=== PATIENT | female | born 1965 | race Two or more races ===

== ENCOUNTER → 2020-01-09 07:55 | Outpatient (REF) | payer MEDICAID, SELFPAY ==
--- NOTE | 2020-01-09 | NM_ITS ---
Myocardial perfusion study Indication: Chest pain to evaluate for myocardial ischemia Technique: The patient was brought in for a Lexiscan perfusion study on 01/09/2020. Patient performed low-level exercise and was injected 0.4 mg of Lexiscan intravenously. Within a minute of injection, 40 mCi of sestamibi was given intravenously. Images were obtained using the SPECT gamma camera interlaced with the gating device. Images were obtained in supine position. Resting perfusion study was performed on 01/10/2020. Patient was administered 40 mCi of sestamibi intravenously at rest. Images were then obtained in supine position. Images obtained with and without CT attenuation. Total DLP 133 MGY-CM. Images were processed with the software and compared side to side in short axis, horizontal long axis and vertical long axis views. Findings: The stress perfusion study showed non attenuated images show normal uptake of radiotracer in all segments of LV myocardium. Attenuated corrected images show mildly reduced uptake in the apex of the LV myocardium. The gated study shows normal LV systolic function with calculated LVEF of 55%. LV cavity is normal size. The gated study shows normal systolic wall thickening and contraction of segments. Resting study shows no change in perfusion pattern compared to stress perfusion study. Gating at rest reveals normal systolic wall motion with ejection fraction at 57%. The findings are consistent with normal myocardial perfusion. NM/NM john perf SPECT rest & str Impression: 1. Myocardial perfusion imaging study shows normal myocardial perfusion 2. Gated LVEF is 55% 3. Transient ischemic dilatation not present EKG is nondiagnostic for ischemia
--- NOTE | 2020-01-09 08:00 | CA_ITS ---
Acquisition Time: 2020-01-09 09:32:01 Total Exercise Time: 00:02:00 Test Indications: Chest Pain Medications: TOPAMAX DOXEPIN SERTRALINE ASA INSULIN LORATADINE SIMVASTATIN PANTOPRAZOLE Protocol: LEXISCAN Max HR: 101 BPM 60% of Pred: 166 BPM Max BP: 108/076 mmHG Max Work Load: 1.0 METS Pharmacological stress test using Lexiscan while sittiing and kicking her feet. Pt had chest thightness 7/10 after lexiscan that was reversed with Aminophyline 75 mg IV. EKG without any arrhythmias, non-diagnostic for ischemia. Nuclear images to follow. Normotensive response to test. Test reviewed with Dr. Burnett Referred By: Bright Jesus Overread By: Jonathan Rhaman
== END ==
LOC: HO.CARD 07:55
PROVIDERS: Visit Provider Internal Medicine Cardiovascular Disease
DX: R07.9 Chest pain, unspecified (principal)
CPT/HCPCS: 78452; 93017; A9500; J0280; J2785

== ENCOUNTER → 2020-02-13 11:20 | Outpatient (BNVA) | payer MEDICAID, SELFPAY | PROVIDERS: PCP Internal Medicine Geriatric Medicine; Visit Provider Internal Medicine | DX: E66.01 Morbid (severe) obesity due to excess calories (principal); G47.33 Obstructive sleep apnea (adult) (pediatric); G47.34 Idiopathic sleep related nonobstructive alveolar hypoventilation; J44.9 Chronic obstructive pulmonary disease, unspecified; J98.4 Other disorders of lung; F17.200 Nicotine dependence, unspecified, uncomplicated | CPT/HCPCS: 99212 ==

== ENCOUNTER → 2020-04-16 11:17 | Outpatient (BNVA) | payer MEDICAID, SELFPAY | PROVIDERS: PCP Internal Medicine Geriatric Medicine; Visit Provider Internal Medicine | DX: E66.01 Morbid (severe) obesity due to excess calories (principal); G47.33 Obstructive sleep apnea (adult) (pediatric); G47.34 Idiopathic sleep related nonobstructive alveolar hypoventilation; J44.9 Chronic obstructive pulmonary disease, unspecified; F17.200 Nicotine dependence, unspecified, uncomplicated; J98.4 Other disorders of lung; E66.9 Obesity, unspecified | CPT/HCPCS: 99212 ==

== ENCOUNTER 2020-05-19 09:38 | Outpatient (REF) | payer MEDICAID, SELFPAY ==
--- NOTE | ~2020-05-19 | XR_ITS ---
EXAMINATION: RIGHT WRIST X-RAY CLINICAL INFORMATION: Carpal tunnel syndrome COMPARISON: None TECHNIQUE: 4 views of the right wrist FINDINGS: Bone alignment is normal. No fracture or dislocation is seen. Joint spaces are normal. There is a small soft tissue calcification adjacent to the distal ulna. Soft tissues are otherwise unremarkable. XR/XR wrist RT w scaphoid IMPRESSION: Unremarkable exam.
== END 2020-05-19 09:39 | disposition home or self-care (01) ==
LOC: HO.XRAY 09:38
PROVIDERS: PCP Internal Medicine Geriatric Medicine; Visit Provider Registered Nurse
DX: G56.01 Carpal tunnel syndrome, right upper limb (principal); M25.531 Pain in right wrist
CPT/HCPCS: 73110

== ENCOUNTER 2020-05-28 10:43 | Outpatient (REF) | payer MEDICAID, SELFPAY ==
--- NOTE | ~2020-05-28 | XR_ITS ---
EXAMINATION: XR CERVICAL SPINE CLINICAL INFORMATION: Right arm pain COMPARISON: 08/13/2008 TECHNIQUE: 6 views of the cervical spine, inclusive of oblique views, were obtained. FINDINGS: The vertebral alignment is normal. No intrinsic bony abnormality. The disc heights are well maintained. Small multilevel endplate osteophytes. There appears to be bony neuroforaminal narrowing bilaterally at C5-C6, C6-C7, and C7-T1.. No fracture or subluxation. The surrounding prevertebral soft tissues are unremarkable. XR/XR cervical spine min 6V IMPRESSION: Mild degenerative changes. Bilateral neuroforaminal narrowing at the lower cervical spine.
--- NOTE | ~2020-05-28 | XR_ITS ---
EXAMINATION: XR SHOULDER, RIGHT CLINICAL INFORMATION: Pain. COMPARISON: None. TECHNIQUE: 3 views of the right shoulder. FINDINGS: Mild acromioclavicular arthritis. No fracture or dislocation. Glenohumeral joint space is maintained. No abnormal soft tissue calcification. XR/XR shoulder RT min 2V IMPRESSION: Mild acromioclavicular arthritis.
== END 2020-05-28 10:44 | disposition home or self-care (01) ==
LOC: HO.XRAY 10:43
PROVIDERS: PCP Internal Medicine Geriatric Medicine; Visit Provider Internal Medicine Geriatric Medicine
DX: M79.601 Pain in right arm (principal)
CPT/HCPCS: 72052; 73030

== ENCOUNTER 2020-07-02 06:00 | Outpatient (REF) | payer MEDICAID, SELFPAY ==
--- NOTE | ~2020-07-02 | CT_ITS ---
EXAMINATION: CT ABDOMEN AND PELVIS WITH CONTRAST CLINICAL INFORMATION: Left lower quadrant pain. COMPARISON: None TECHNIQUE: Multidetector volumetric images were obtained from the superior aspect of the liver through the pubic symphysis following administration 85 mL of Omnipaque 350 intravenous contrast. Sagittal and coronal reformatted images were obtained on the technologist's workstation. Oral Contrast: No. This CT examination was performed using dose optimization techniques as appropriate, variously including the following: *Automated exposure control. *Adjustment of mA and/or kV according to patient size (this includes techniques or standardized protocols for targeted exams where dose is matched to indication/reason for exam; i.e. extremities or head). *Use of iterative reconstruction technique. DLP: 765 mGy-cm FINDINGS: LUNG BASES: The visualized lung bases are unremarkable. LIVER, GALLBLADDER, AND BILIARY TREE: The liver is normal in size, shape, and attenuation. No focal hepatic lesion or biliary ductal dilatation is present. The gallbladder is unremarkable with no evidence of radiopaque gallstones, gallbladder wall thickening, or obvious pericholecystic inflammatory changes. PANCREAS: Unremarkable. SPLEEN: Unremarkable. ADRENAL GLANDS: Unremarkable. KIDNEYS AND URETERS: The kidneys are normal in size, shape, and attenuation. No hydronephrosis, hydroureter, or calculi seen. No perinephric stranding. There are bilateral extrarenal kidney pelvises. BLADDER: Unremarkable. GASTROINTESTINAL TRACT: There is moderate scattered stool and diverticuli seen throughout the colon without significant distention. There is no mural thickening or pericolic fat stranding to suspect any diverticulitis. Contrast-opacified small bowel loops are normal in caliber. There is no free air or free fluid. Appendix is not visualized. ABDOMINAL WALL: No significant hernia is appreciated. LYMPH NODES: There are small shotty lymph nodes in the retroperitoneum from previous intervention. VASCULAR: Unremarkable. PELVIC VISCERA: Unremarkable. OSSEOUS STRUCTURES: No lytic or sclerotic process seen. There is mild degenerative ventral spondylosis in the lower dorsal spine. There is vacuum disc phenomena at L4-L5 disc level. CT/CT abdomen pelvis w con IMPRESSION: 1. Scattered colonic diverticulosis without diverticulitis. 2. Bilateral extrarenal kidney pelvises but no radiopaque renal calculi seen. 3. Hysterectomy and bilateral oophorectomy.
[2020-07-02] MEDS: iohexoL 350 MG/ML 100 ML INFUS..BTL IV (08:17)
[2020-07-02] MEDS: Barium Sulfate Oral (Berry) 450 ML ORAL.SUSP 900 ML PO (08:18)
== END 2020-07-02 06:01 | disposition home or self-care (01) ==
LOC: HO.CT 06:00
PROVIDERS: PCP Internal Medicine Geriatric Medicine; Visit Provider Internal Medicine Geriatric Medicine
DX: R10.32 Left lower quadrant pain (principal)
CPT/HCPCS: 74177; Q9967

== ENCOUNTER 2020-07-24 10:08 | Outpatient (REF) | payer MEDICAID, SELFPAY ==
--- NOTE | ~2020-07-24 | XR_ITS ---
EXAMINATION: XR KNEE, RIGHT CLINICAL INFORMATION: Right knee pain. COMPARISON: 03/29/2019 right knee radiographs. TECHNIQUE: Four views of the right knee. FINDINGS: [id number] tricompartmental degenerative joint changes are seen most pronounced in the lateral femoral tibial compartment. There is no acute fracture, dislocation or joint effusion. The soft tissues are unremarkable without significant change. XR/XR knee RT 4V IMPRESSION: [id number] tricompartmental degenerative joint changes suggesting osteoarthritis without significant change. No acute abnormality.
== END 2020-07-24 10:09 | disposition home or self-care (01) ==
LOC: HO.XRAY 10:08
PROVIDERS: PCP Internal Medicine Geriatric Medicine; Referring Provider Internal Medicine Geriatric Medicine; Visit Provider Internal Medicine
DX: M25.561 Pain in right knee (principal)
CPT/HCPCS: 73564

== ENCOUNTER → 2020-09-15 09:45 | Outpatient (BNVA) | payer MEDICAID, SELFPAY | PROVIDERS: PCP Internal Medicine Geriatric Medicine; Visit Provider Internal Medicine Pulmonary Disease | DX: M54.9 Dorsalgia, unspecified (principal); R31.9 Hematuria, unspecified | CPT/HCPCS: 99212 ==

== ENCOUNTER 2020-09-24 13:24 | Outpatient (REF) | payer MEDICAID, SELFPAY ==
--- NOTE | ~2020-09-24 | CT_ITS ---
EXAMINATION: CT ABDOMEN AND PELVIS WITHOUT CONTRAST CLINICAL INFORMATION: Dorsal pain. COMPARISON: CT abdomen pelvis 07/02/2020. TECHNIQUE: Multidetector volumetric imaging was performed from the superior aspect of the liver through the pubic symphysis. Sagittal and coronal reformatted images were obtained on the technologist's workstation. This CT examination was performed using dose optimization techniques as appropriate, variously including the following: *Automated exposure control *Adjustment of mA and/or kV according to patient size (this includes techniques or standardized protocols for targeted exams where dose is matched to indication/reason for exam; i.e. extremities or head) *Use of iterative reconstruction technique DLP: 782 mGy-cm FINDINGS: LUNG BASES: The lung bases are clear. The heart size is normal. LIVER, GALLBLADDER, AND BILIARY TREE: The liver is normal in size, shape, and attenuation. No focal hepatic lesion or biliary ductal dilatation is present. The gallbladder is unremarkable with no evidence of radiopaque gallstones, gallbladder wall thickening, or obvious pericholecystic inflammatory changes. PANCREAS: Unremarkable. SPLEEN: Unremarkable. ADRENAL GLANDS: Unremarkable. KIDNEYS AND URETERS: The kidneys are normal in size, shape, and attenuation. No hydronephrosis, hydroureter, or calculi seen. No perinephric stranding. There are bilateral extrarenal kidney pelvises. BLADDER: Unremarkable. GASTROINTESTINAL TRACT: There is scattered stool and gas seen throughout the colon without any significant distention. The small bowel loops are normal caliber. Appendix is not seen. ABDOMINAL WALL: No significant hernia is appreciated. LYMPH NODES: Normal. VASCULAR: Unremarkable. PELVIC VISCERA: Unremarkable. OSSEOUS STRUCTURES: There is vacuum disc phenomena at L4-L5 disc level. No lytic or sclerotic process seen. There is mild ventral spondylosis lower dorsal and upper lumbar spine. CT/CT abdomen pelvis wo con IMPRESSION: Degenerative disc changes with vacuum disc phenomena L4-L5 disc level. No fracture or lytic process. There is mild to moderate ventral spondylosis and lower dorsal and upper lumbar spine. There is no acute intra-abdominal process.
== END 2020-09-24 13:25 | disposition home or self-care (01) ==
LOC: HO.CT 13:24
PROVIDERS: PCP Internal Medicine Geriatric Medicine; Visit Provider Internal Medicine Pulmonary Disease
DX: M54.9 Dorsalgia, unspecified (principal)
CPT/HCPCS: 74176

== ENCOUNTER 2020-10-03 10:38 | Outpatient (REF) | payer OTHER, MEDICAID, SELFPAY ==
--- NOTE | ~2020-10-03 | XR_ITS ---
EXAMINATION: XR CERVICAL SPINE CLINICAL INFORMATION: Strain of muscle, fascia, and tendon adnexal level. COMPARISON: Cervical spine radiographs dated 05/28/2020. TECHNIQUE: AP, lateral, open-mouth, and bilateral oblique views of the cervical spine. FINDINGS: Straightening of the normal cervical lordosis, which may be positional or related to muscular spasm. No acute fracture or subluxation. No loss of vertebral body height. Mild loss of intervertebral disc height with small endplate osteophytes at C6-C7 where there is mild bilateral neural foraminal stenosis. Findings are similar when compared to the prior radiographs. Normal atlantoaxial alignment. Unremarkable prevertebral soft tissues. XR/XR cervical spine 4V IMPRESSION: Straightening of the normal cervical lordosis, which may be positional or related to muscular spasm. Degenerative disc disease at C6-C7 with mild bilateral neural foraminal stenosis, similar when compared to the prior radiographs.
== END 2020-10-03 10:39 | disposition home or self-care (01) ==
LOC: HO.XRAY 10:38
PROVIDERS: Absent Provider Internal Medicine Geriatric Medicine; PCP Internal Medicine Geriatric Medicine; Visit Provider Family Medicine
DX: S16.1XXD Strain of muscle, fascia and tendon at neck level, subsequent encounter (principal); X58.XXXD Exposure to other specified factors, subsequent encounter
CPT/HCPCS: 72050

== ENCOUNTER 2020-10-07 14:11 | Outpatient (REF) | payer OTHER, MEDICAID, SELFPAY ==
--- NOTE | ~2020-10-07 | XR_ITS ---
EXAMINATION: XR RIBS, BILATERAL CLINICAL INFORMATION: Pleurodynia. COMPARISON: Most recent chest radiographs dated 03/21/2019 TECHNIQUE: PA view of the chest as well as 3 views of the right and left ribs. FINDINGS: Lungs are clear. No consolidation, pneumothorax, or pleural effusion. The cardiomediastinal silhouette and pulmonary vasculature are normal. Osseous structures are unremarkable. Ribs are intact. No fractures are identified. XR/XR ribs BI min 4V w CXR1V IMPRESSION: No displaced fracture.
== END 2020-10-07 14:12 | disposition home or self-care (01) ==
LOC: HO.XRAY 14:11
PROVIDERS: PCP Internal Medicine Geriatric Medicine; Visit Provider Emergency Medicine
DX: R07.81 Pleurodynia (principal)
CPT/HCPCS: 71111

== ENCOUNTER 2020-10-14 09:49 | Outpatient (REF) | payer MEDICAID, SELFPAY ==
--- NOTE | ~2020-10-14 | CT_ITS ---
EXAMINATION: CT ABDOMEN AND PELVIS WITHOUT CONTRAST CLINICAL INFORMATION: Low back pain, dysuria. COMPARISON: CT scan of the abdomen and pelvis dated 09/24/2020. TECHNIQUE: Multidetector volumetric imaging was performed from the superior aspect of the liver through the pubic symphysis. Sagittal and coronal reformatted images were obtained on the technologist's workstation. Lack of intravenous and oral contrast limits visceral evaluation. This CT examination was performed using dose optimization techniques as appropriate, variously including the following: *Automated exposure control *Adjustment of mA and/or kV according to patient size (this includes techniques or standardized protocols for targeted exams where dose is matched to indication/reason for exam; i.e. extremities or head) *Use of iterative reconstruction technique DLP: 831 mGy-cm FINDINGS: LUNG BASES: The visualized lung bases are unremarkable. LIVER, GALLBLADDER, AND BILIARY TREE: Unremarkable. PANCREAS: Unremarkable. SPLEEN: Unremarkable. ADRENAL GLANDS: Unremarkable. KIDNEYS AND URETERS: There is mild malrotation of the right kidney. Mild renal pelviectasis is seen bilaterally, left greater than right without obstructing abnormality. No nephrolithiasis or ureterectasis. BLADDER: Unremarkable. GASTROINTESTINAL TRACT: The stomach and small bowel are unremarkable. The appendix is not visualized. No evidence for acute appendicitis. The colon is unremarkable. ABDOMINAL WALL: No significant hernia is appreciated. LYMPH NODES: No lymphadenopathy. 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 PELVIC VISCERA: Status post hysterectomy. No adnexal abnormality. OSSEOUS STRUCTURES: Mild multilevel marginal osteophyte formation most pronounced in the inferior thoracic spine without acute abnormality or significant change. CT/CT abdomen pelvis wo con IMPRESSION: 1. No acute intra-abdominal/pelvic abnormality to explain the patient's pain. No significant interval change. 2. 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 No obstructing abnormality is seen. This could be secondary to mild bilateral ureteropelvic stenosis. No nephrolithiasis or ureterectasis. 3. 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
== END 2020-10-14 09:50 | disposition home or self-care (01) ==
LOC: HO.CT 09:49
PROVIDERS: Visit Provider Emergency Medicine
DX: M54.5 Low back pain (principal); R30.0 Dysuria
CPT/HCPCS: 74176

== ENCOUNTER → 2020-12-03 11:48 | Outpatient (BNVA) | payer MEDICAID, SELFPAY | PROVIDERS: PCP Internal Medicine Geriatric Medicine; Referring Provider Internal Medicine Geriatric Medicine; Visit Provider Physician Assistant Surgical ==

== ENCOUNTER → 2020-12-05 10:34 | Outpatient (BNVA) | payer MEDICAID, SELFPAY | PROVIDERS: PCP Internal Medicine Geriatric Medicine; Visit Provider Urology | DX: Q63.2 Ectopic kidney (principal) | CPT/HCPCS: 99202 ==

== ENCOUNTER 2020-12-29 11:41 | Outpatient (RCR) | payer MEDICAID, SELFPAY | END 2021-06-23 08:19 | disposition home or self-care (01) | LOC: HO.PT 11:41 | PROVIDERS: PCP Internal Medicine Geriatric Medicine; Visit Provider Internal Medicine | DX: M25.511 Pain in right shoulder (principal) ==

== ENCOUNTER 2020-12-29 14:42 | Outpatient (REF) | payer MEDICAID, SELFPAY ==
--- NOTE | ~2020-12-29 | XR_ITS ---
EXAMINATION: XR FOREARM, RIGHT AND RIGHT HAND CLINICAL INFORMATION: Pain previous right wrist x-ray April 2020 COMPARISON: None. TECHNIQUE: AP and lateral views of the right forearm and 4 views of the right wrist were obtained. FINDINGS: Right Wrist: Bone alignment is normal. No fracture or dislocation is seen. The joint spaces are normal. There is a small soft tissue ossification or calcification adjacent to the ulnar styloid. Soft tissues are otherwise unremarkable. Right Forearm: Bone alignment is normal. No fracture or dislocation is seen. The joint spaces are normal. Soft tissues are normal. XR/XR forearm RT 2V IMPRESSION: RIGHT WRIST: Small soft tissue calcification or ossification adjacent to the ulnar styloid. This may be related to old trauma. RIGHT FOREARM: Unremarkable exam.
--- NOTE | ~2020-12-29 | XR_ITS ---
EXAMINATION: XR FOREARM, RIGHT AND RIGHT HAND CLINICAL INFORMATION: Pain previous right wrist x-ray April 2020 COMPARISON: None. TECHNIQUE: AP and lateral views of the right forearm and 4 views of the right wrist were obtained. FINDINGS: Right Wrist: Bone alignment is normal. No fracture or dislocation is seen. The joint spaces are normal. There is a small soft tissue ossification or calcification adjacent to the ulnar styloid. Soft tissues are otherwise unremarkable. Right Forearm: Bone alignment is normal. No fracture or dislocation is seen. The joint spaces are normal. Soft tissues are normal. XR/XR hand wrist RT IMPRESSION: RIGHT WRIST: Small soft tissue calcification or ossification adjacent to the ulnar styloid. This may be related to old trauma. RIGHT FOREARM: Unremarkable exam.
== END 2020-12-29 14:43 | disposition home or self-care (01) ==
LOC: HO.XRAY 14:42
PROVIDERS: Absent Provider Internal Medicine Geriatric Medicine; PCP Internal Medicine Geriatric Medicine; Visit Provider Emergency Medicine
DX: M25.531 Pain in right wrist (principal); M79.641 Pain in right hand; M79.631 Pain in right forearm
CPT/HCPCS: 73090; 73110; 73130

== ENCOUNTER → 2020-12-31 15:46 | Outpatient (BNVA) | payer MEDICAID, SELFPAY | PROVIDERS: Referring Provider Internal Medicine Geriatric Medicine; Visit Provider Nurse Practitioner Family | DX: K21.9 Gastro-esophageal reflux disease without esophagitis (principal); K58.2 Mixed irritable bowel syndrome; K59.03 Drug induced constipation; R14.0 Abdominal distension (gaseous) | CPT/HCPCS: 99202 ==

== ENCOUNTER 2021-01-01 12:41 | Outpatient (REF) | payer MEDICAID, SELFPAY | END 2021-01-01 12:42 | disposition home or self-care (01) | LOC: HO.LAB 12:41 | PROVIDERS: PCP Internal Medicine Geriatric Medicine; Visit Provider Nurse Practitioner Family | DX: Z13.89 Encounter for screening for other disorder (principal) ==

== ENCOUNTER 2021-01-02 08:08 | Outpatient (REF) | payer MEDICAID, SELFPAY ==
[2021-01-02 10:15] LABS: Hematocrit 38.7 % (37.0-47.0); Hemoglobin 11.9 g/dl (12.0-16.0); Mean Corpuscular HGB Conc 30.7 g/dl (31.0-35.0); Mean Corpuscular Volume 87.8 fL (80.0-98.0); Mean Platelet Volume 12.9 fL (9.4-12.3); Platelet Count 169 X10*3/uL (160-400); Red Blood Count 4.41 X10*6/uL (4.20-5.50); Red Cell Distribution Width 14.1 % (11.0-16.0); White Blood Count 6.7 X10*3/uL (4.8-10.8)
[2021-01-02 10:25] LABS: Estimated Average Glucose 171 mg/dL; Hemoglobin A1c % 7.6 %
[2021-01-02 10:44] LABS: Alanine Aminotransferase 33 U/L (0-31); Albumin Level 3.8 g/dL (3.5-5.0); Alkaline Phosphatase 75 U/L (39-117); Anion Gap 9 (12-20); Aspartate Amino Transferase 18 U/L (5-31); Bilirubin Total 0.6 mg/dL (0.0-1.0); Blood Urea Nitrogen 13 mg/dL (9-16); Calcium 9.1 mg/dL (8.4-10.2); Carbon Dioxide 30 mmol/L (22-29); Chloride 104 mmol/L (96-108); Estimated Glomerular Filt Rate > 60; Glucose Random 110 mg/dL (60-115); Lipase 19 U/L (8-78); Potassium 4.3 mmol/L (3.3-5.1); Sodium 139 mmol/L (135-145)
[2021-01-02 10:54] LABS: TSH reflex Free T4 0.95 uIU/mL (0.32-4.0)
[2021-01-02 11:06] LABS: Folate 17.6 ng/mL (> or = 4.0); Vitamin B12 536 pg/mL (200-900)
[2021-01-09 15:31] LABS: Vitamin D 25-OH, D2 <4 ng/mL; Vitamin D 25-OH, D3 29 ng/mL; Vitamin D 25-OH, Total 29 ng/mL (30-100)
[2021-01-12 17:27] LABS: Transglutaminase Ab IgG <1.0 U/mL; Transglutaminase IgA <1.0 U/mL
== END 2021-01-02 08:09 | disposition home or self-care (01) ==
LOC: HO.LAB 08:08
PROVIDERS: Absent Provider Nurse Practitioner Family; PCP Internal Medicine Geriatric Medicine; Visit Provider Surgery
DX: Z12.11 Encounter for screening for malignant neoplasm of colon (principal); R10.11 Right upper quadrant pain; R19.7 Diarrhea, unspecified; E55.9 Vitamin D deficiency, unspecified; R14.0 Abdominal distension (gaseous); E11.9 Type 2 diabetes mellitus without complications; E66.01 Morbid (severe) obesity due to excess calories; G47.33 Obstructive sleep apnea (adult) (pediatric); J44.9 Chronic obstructive pulmonary disease, unspecified; E78.5 Hyperlipidemia, unspecified; K21.9 Gastro-esophageal reflux disease without esophagitis
CPT/HCPCS: 36415; 80053; 82306; 82607; 82746; 83036; 83516; 83690; 84443; 85027

== ENCOUNTER → 2021-01-06 08:56 | Outpatient (REF) | payer MEDICAID, SELFPAY ==
--- NOTE | 2021-01-06 09:07 | ECG_ITS ---
Test Reason : morbid obesity Blood Pressure : / mmHG Vent. Rate : 061 BPM Atrial Rate : 061 BPM P-R Int : 136 ms QRS Dur : 084 ms QT Int : 400 ms P-R-T Axes : -20 -07 -04 degrees QTc Int : 402 ms Normal sinus rhythm Minimal voltage criteria for LVH, may be normal variant ( R in aVL ) Borderline ECG When compared with ECG of 05-FEB-2018 14:04, No significant change was found Referred By: Uriel Jewell Electronically Signed By:CRYSTAL GODINEZ MD
[2021-01-06 09:29] LABS: MANUAL DIFF FLAG NO
[2021-01-06 10:47] LABS: Basophils Percent Auto 0.4 % (0-2); Eosinophils Percent Auto 0.7 % (0-4); Hematocrit 40.1 % (37.0-47.0); Hemoglobin 12.6 g/dl (12.0-16.0); Imm Gran Abs Auto 0.02 X10*3/uL (0.00-0.03); Imm Gran Pct Auto 0.4 % (0.0-0.4); Lymphocytes Absolute Auto 1.2 X10*3/uL (1.2-4.9); Lymphocytes Percent Auto 21.2 % (20-40); Mean Corpuscular HGB Conc 31.4 g/dl (31.0-35.0); Mean Corpuscular Hemoglobin 27.3 pg (27.0-33.0); Mean Corpuscular Volume 86.8 fL (80.0-98.0); Mean Platelet Volume 12.6 fL (9.4-12.3); Monocytes Absolute Auto 0.6 X10*3/uL (0.1-1.2); Monocytes Percent Auto 10.8 % (2-11); Neutrophils Absolute Auto 3.6 x10*3/uL (2.0-8.3); Neutrophils Percent Auto 66.5 % (45-73); Platelet Count 154 X10*3/uL (160-400); Red Blood Count 4.62 X10*6/uL (4.20-5.50); Red Cell Distribution Width 14.1 % (11.0-16.0); White Blood Count 5.5 X10*3/uL (4.8-10.8)
[2021-01-06 11:00] LABS: Estimated Average Glucose 166 mg/dL; Hemoglobin A1c % 7.4 %
[2021-01-06 11:21] LABS: Alanine Aminotransferase 30 U/L (0-31); Albumin Level 4.2 g/dL (3.5-5.0); Alkaline Phosphatase 73 U/L (39-117); Anion Gap 10 (12-20); Aspartate Amino Transferase 19 U/L (5-31); Bilirubin Total 0.9 mg/dL (0.0-1.0); Blood Urea Nitrogen 11 mg/dL (9-16); C Reactive Protein 0.26 mg/dL (< or = 0.50); Calcium 9.3 mg/dL (8.4-10.2); Carbon Dioxide 27 mmol/L (22-29); Chloride 105 mmol/L (96-108); Cholesterol 196 mg/dL; Estimated Glomerular Filt Rate > 60; Glucose Random 106 mg/dL (60-115); HDL Cholesterol 46 mg/dL; Iron 116 mcg/dL (30-160); LDL Cholesterol Calculated 129 mg/dl; Percent Iron Saturation 35 % (15-50); Sodium 138 mmol/L (135-145); Total Iron Binding Capacity 335 mcg/dL (228-428); Total Protein 6.8 g/dL (6.5-8.0); Triglycerides 109 mg/dL; Unsaturated Iron Binding 219 ug/dL
[2021-01-06 11:43] LABS: Ferritin 161 ng/mL (10-250); Insulin 18 uU/mL (2-29); Vitamin D 25-OH Total 22.3 ng/mL (>30)
[2021-01-06 12:17] LABS: Folate > 20.0 ng/mL (> or = 4.0); Vitamin B12 670 pg/mL (200-900)
[2021-01-08 02:57] LABS: Calcium (PTHI) 9.4 mg/dL (8.6-10.4); PTHI 35 pg/mL (14-64)
[2021-01-09 00:31] LABS: Zinc 86 mcg/dL (60-130)
[2021-01-10 11:11] LABS: Vitamin B1 12 nmol/L (8-30)
[2021-01-12 03:31] LABS: Vitamin A 42 mcg/dL (38-98)
== END ==
LOC: HO.CARD 08:56
PROVIDERS: Nurse Practitioner Family; PCP Internal Medicine Geriatric Medicine; Visit Provider Surgery
DX: E66.01 Morbid (severe) obesity due to excess calories (principal); E78.5 Hyperlipidemia, unspecified; G47.33 Obstructive sleep apnea (adult) (pediatric); J44.9 Chronic obstructive pulmonary disease, unspecified; K21.9 Gastro-esophageal reflux disease without esophagitis
CPT/HCPCS: 36415; 80053; 80061; 82306; 82607; 82728; 82746; 83036; 83525; 83540; 83970; 84425; 84590; 84630; 85025; 86140; 87338; 93005

== ENCOUNTER → 2021-01-30 09:16 | Outpatient (BNVA) | payer MEDICAID, SELFPAY | PROVIDERS: PCP Internal Medicine Geriatric Medicine; Referring Provider Internal Medicine Geriatric Medicine; Visit Provider Dietitian, Registered | DX: E66.01 Morbid (severe) obesity due to excess calories (principal); Z68.41 Body mass index [BMI] 40.0-44.9, adult | CPT/HCPCS: 97802 ==

== ENCOUNTER → 2021-02-06 08:22 | Outpatient (BNVA) | payer MEDICAID, SELFPAY | PROVIDERS: PCP Internal Medicine Geriatric Medicine; Visit Provider Surgery ==

== ENCOUNTER → 2021-02-09 08:10 | Outpatient (BNVA) | payer MEDICAID, SELFPAY | PROVIDERS: PCP Internal Medicine Geriatric Medicine; Visit Provider Surgery ==

== ENCOUNTER → 2021-02-11 08:42 | Outpatient (BNVA) | payer MEDICAID, SELFPAY | PROVIDERS: PCP Internal Medicine Geriatric Medicine; Referring Provider Internal Medicine Geriatric Medicine; Visit Provider Nurse Practitioner Family | DX: K58.1 Irritable bowel syndrome with constipation (principal); K21.9 Gastro-esophageal reflux disease without esophagitis; I25.10 Atherosclerotic heart disease of native coronary artery without angina pectoris | CPT/HCPCS: 99212 ==

== ENCOUNTER → 2021-02-19 09:36 | Outpatient (BNVA) | payer MEDICAID, SELFPAY | PROVIDERS: PCP Internal Medicine Geriatric Medicine; Referring Provider Internal Medicine Geriatric Medicine; Visit Provider Physician Assistant Surgical ==

== ENCOUNTER → 2021-02-24 12:07 | Outpatient (BNVA) | payer MEDICAID, SELFPAY | PROVIDERS: PCP Internal Medicine Geriatric Medicine; Referring Provider Internal Medicine Geriatric Medicine; Visit Provider Physician Assistant ==

== ENCOUNTER → 2021-02-26 09:47 | Outpatient (BNVA) | payer MEDICAID, SELFPAY | PROVIDERS: PCP Internal Medicine Geriatric Medicine; Referring Provider Surgery; Visit Provider Dietitian, Registered | DX: E66.01 Morbid (severe) obesity due to excess calories (principal) | CPT/HCPCS: 97803 ==

== ENCOUNTER 2021-03-02 09:19 | Outpatient (REF) | payer MEDICAID, SELFPAY ==
--- NOTE | ~2021-03-02 | FL_ITS ---
EXAMINATION: XR FLUOROSCOPY UPPER GI WITH AIR CLINICAL INFORMATION: Moderate/severe obesity due to excess calories. COMPARISON: None TECHNIQUE: Routine upper GI air-contrast study was performed. FINDINGS: Following oral administration of thick barium and effervescent granules there is normal propagation bolus from the oral cavity through the pharynx, esophagus into the stomach without any evidence of obstruction, narrowing or stricture. On placing patient supine and prone lying there is moderate gastroesophageal reflux without hiatal hernia. Otherwise rest of the course, caliber and peristalsis of the stomach, duodenal bulb and the sweep is normal. FLUOROSCOPY TIME: 1.5 minutes DOSE AREA PRODUCT: 31.6 uGy-m2 (microgray-meter squared) FL/FL upper GI w air IMPRESSION: Moderate gastroesophageal reflux without hiatal hernia.
--- NOTE | ~2021-03-02 | US_ITS ---
EXAMINATION: US COMPLETE ABDOMEN WITH LIVER ELASTOGRAPHY CLINICAL INFORMATION: Morbid severe obesity due to excess calories. COMPARISON: None. TECHNIQUE: Real-time imaging of the abdominal viscera. Noninvasive ultrasound liver fibrosis assessment is performed using Macie ElastPQ point quantification shear wave elastography (2D-SWE) with a C5-2 MHz transducer. Multiple elastography samples are obtained. FINDINGS: PANCREAS: Normal. The visualized pancreatic head and body are normal in appearance. The remainder of the pancreas is obscured from visualization by the overlying bowel gas. ABDOMINAL AORTA: The proximal, middle, and distal aortic segments are normal in caliber. INFERIOR VENA CAVA: Visualized portions are normal. LIVER: The liver demonstrates normal size, contour and increased echogenicity. No focal lesion or intrahepatic biliary duct dilatation. The right lobe measures 16.3 cm in length. The left lobe measures 9.8 cm in length. Portal flow is hepatopedal. Shear wave liver elastography median stiffness is 1.10 m/s (reference: normal median stiffness is 1.3 m/s or less). IQR/median stiffness to assess sampling precision is 0.14 (reference: good quality data set is IQR/median stiffness of 0.15 or less). GALLBLADDER: Normal. The gallbladder is physiologically distended without evidence of stones, sludge, polyps, wall thickening or pericholecystic fluid. COMMON BILE DUCT: Normal in caliber measuring 0.57 cm in diameter. RIGHT KIDNEY: Normal. No hydronephrosis. No renal calculi or focal parenchymal lesions. The kidney measures 13.9 cm in maximum dimension. LEFT KIDNEY: Mild fullness of proximal ureter. No renal calculi or focal parenchymal lesions. The kidney measures 14.4 cm in maximum dimension. SPLEEN: Normal. The spleen measures 13.0 cm in maximum dimension. FREE FLUID: None. US/US abdomen comp w elastography IMPRESSION: 1. Hepatic steatosis without focal lesion. 2. Nonspecific but mild fullness of the left proximal ureter. 3. Liver elastography: Median liver stiffness 1.10 m/s. Findings suggestive of high probably normal liver stiffness. REFERENCE: Society of Radiologists in Ultrasound Liver Stiffness Thresholds (2020): LIVER STIFFNESS THRESHOLDS: *Liver Stiffness equal or less than 1.3 m/s: High probability of being normal. *Liver Stiffness less than 1.7 m/s: In the absence of other known clinical signs, rules out compensated advanced chronic liver disease. *Liver Stiffness 1.7-2.1 m/s: Suggestive of compensated advanced chronic liver disease but need further test for confirmation. *Liver Stiffness over 2.1 m/s: Rules in compensated advanced chronic liver disease. *Liver Stiffness over 2.4 m/s: Suggestive of clinically significant portal hypertension. QUALITY OF DATA SET: *IQR/Median value equal or less than 0.15 implies a quality data set. *IQR/Median value over 0.15 implies a poor quality data set. SIGNIFICANT CHANGE FROM PRIOR EXAM: Significant change if liver stiffness measurement is 10% or greater from prior exam. OTHER CONSIDERATIONS: The stage of liver fibrosis may be overestimated in the setting of acute hepatitis, liver inflammation, elevated liver function tests, hepatic vascular congestion, obstructive cholestasis, non-fasting state, and infiltrative diseases such as amyloidosis and lymphoma. In some patients with NAFLD, the liver stiffness thresholds for compensated advanced chronic liver disease may be lower. In causes other than viral hepatitis and NAFLD, liver stiffness thresholds are not well established.
== END 2021-03-02 09:20 | disposition home or self-care (01) ==
LOC: HO.US 09:19
PROVIDERS: Visit Provider Surgery
DX: E66.01 Morbid (severe) obesity due to excess calories (principal); K21.9 Gastro-esophageal reflux disease without esophagitis; E78.5 Hyperlipidemia, unspecified; G47.33 Obstructive sleep apnea (adult) (pediatric); J44.9 Chronic obstructive pulmonary disease, unspecified
CPT/HCPCS: 74246; 76705; 76981

== ENCOUNTER → 2021-03-05 12:10 | Outpatient (BNVA) | payer MEDICAID, SELFPAY | PROVIDERS: PCP Internal Medicine Geriatric Medicine; Referring Provider Internal Medicine Geriatric Medicine; Visit Provider Physician Assistant Surgical ==

== ENCOUNTER 2021-03-10 10:22 | Outpatient (REF) | payer MEDICAID, SELFPAY ==
[2021-03-10 14:12] LABS: H Pylori Breath Test Negative (Negative)
== END 2021-03-10 10:23 | disposition home or self-care (01) ==
LOC: HO.LNP 10:22
PROVIDERS: Surgery; PCP Internal Medicine Geriatric Medicine; Referring Provider Internal Medicine Geriatric Medicine; Visit Provider Physician Assistant
DX: E66.01 Morbid (severe) obesity due to excess calories (principal); E11.9 Type 2 diabetes mellitus without complications; G47.33 Obstructive sleep apnea (adult) (pediatric); J44.9 Chronic obstructive pulmonary disease, unspecified; K21.9 Gastro-esophageal reflux disease without esophagitis; E78.5 Hyperlipidemia, unspecified; Z71.3 Dietary counseling and surveillance; Z79.4 Long term (current) use of insulin; Z11.0 Encounter for screening for intestinal infectious diseases
CPT/HCPCS: 83013; 97803; 99211

== ENCOUNTER → 2021-03-12 08:54 | Outpatient (BNVA) | payer MEDICAID, SELFPAY | PROVIDERS: PCP Internal Medicine Geriatric Medicine; Visit Provider Physician Assistant Surgical ==

== ENCOUNTER → 2021-03-16 11:14 | Outpatient (BNVA) | payer MEDICAID, SELFPAY | PROVIDERS: PCP Internal Medicine Geriatric Medicine; Referring Provider Internal Medicine Geriatric Medicine; Visit Provider Nurse Practitioner Family | DX: K21.9 Gastro-esophageal reflux disease without esophagitis (principal); K58.1 Irritable bowel syndrome with constipation; K59.04 Chronic idiopathic constipation | CPT/HCPCS: 99212 ==

== ENCOUNTER → 2021-03-19 13:02 | Outpatient (BNVA) | payer MEDICAID, SELFPAY | PROVIDERS: PCP Internal Medicine Geriatric Medicine; Referring Provider Internal Medicine Geriatric Medicine; Visit Provider Physician Assistant ==

== ENCOUNTER → 2021-03-26 09:14 | Outpatient (BNVA) | payer MEDICAID, SELFPAY | PROVIDERS: PCP Internal Medicine Geriatric Medicine; Referring Provider Internal Medicine Geriatric Medicine; Visit Provider Physician Assistant ==

== ENCOUNTER → 2021-04-02 10:10 | Outpatient (BNVA) | payer MEDICAID, SELFPAY | PROVIDERS: PCP Internal Medicine Geriatric Medicine; Referring Provider Surgery; Visit Provider Dietitian, Registered | DX: G47.34 Idiopathic sleep related nonobstructive alveolar hypoventilation (principal); G47.33 Obstructive sleep apnea (adult) (pediatric); J44.9 Chronic obstructive pulmonary disease, unspecified; J98.4 Other disorders of lung; J30.9 Allergic rhinitis, unspecified; E66.01 Morbid (severe) obesity due to excess calories; Z68.41 Body mass index [BMI] 40.0-44.9, adult | CPT/HCPCS: 97803; 99212 ==

== ENCOUNTER → 2021-04-09 08:45 | Outpatient (BNVA) | payer MEDICAID, SELFPAY | PROVIDERS: PCP Internal Medicine Geriatric Medicine; Referring Provider Internal Medicine Geriatric Medicine; Visit Provider Physician Assistant ==

== ENCOUNTER 2021-04-14 15:09 | Emergency (ER) | payer MEDICAID, SELFPAY ==
--- NOTE | ~2021-04-14 | XR_ITS ---
EXAMINATION: X-RAY CHEST X-RAY ABDOMEN CLINICAL INFORMATION: Epigastric pain. COMPARISON: Chest radiograph dated from 10/07/2020. TECHNIQUE: AP view of the chest. AP supine views of the abdomen. FINDINGS: Chest radiograph: Normal appearance of the cardiomediastinal silhouette. No focal airspace opacities, pleural effusions or pneumothorax. No acute osseous abnormalities. Abdominal radiograph: Nonobstructive bowel gas pattern. Mild volume of stool burden. Surgical clips overlying the pelvis. No acute osseous abnormalities. XR/XR chest 1V IMPRESSION: 1. No acute cardiopulmonary findings. 2. Nonobstructive bowel gas pattern. Mild volume of stool burden.
--- NOTE | ~2021-04-14 | XR_ITS ---
EXAMINATION: X-RAY CHEST X-RAY ABDOMEN CLINICAL INFORMATION: Epigastric pain. COMPARISON: Chest radiograph dated from 10/07/2020. TECHNIQUE: AP view of the chest. AP supine views of the abdomen. FINDINGS: Chest radiograph: Normal appearance of the cardiomediastinal silhouette. No focal airspace opacities, pleural effusions or pneumothorax. No acute osseous abnormalities. Abdominal radiograph: Nonobstructive bowel gas pattern. Mild volume of stool burden. Surgical clips overlying the pelvis. No acute osseous abnormalities. XR/XR KUB IMPRESSION: 1. No acute cardiopulmonary findings. 2. Nonobstructive bowel gas pattern. Mild volume of stool burden.
[2021-04-14 16:30] VITALS: BP 158/76; PULSE 77; PULSE 89; RESP 18; TEMP 36.8; O2SAT 97; O2SAT 99; BMI 39.3
--- NOTE | 2021-04-14 16:33 | ECG_ITS ---
Test Reason : nausea/vomiting Blood Pressure : / mmHG Vent. Rate : 070 BPM Atrial Rate : 070 BPM P-R Int : 164 ms QRS Dur : 088 ms QT Int : 400 ms P-R-T Axes : 019 -13 -21 degrees QTc Int : 432 ms Normal sinus rhythm Minimal voltage criteria for LVH, may be normal variant ( R in aVL ) Borderline ECG When compared with ECG of 06-JAN-2021 09:13, No significant change was found Referred By: Generic ED Physician Electronically Signed By:SIOMARA CARLTON
[2021-04-14 16:50] LABS: Hematocrit 39.3 % (37.0-47.0); Hemoglobin 12.5 g/dl (12.0-16.0); Mean Corpuscular HGB Conc 31.8 g/dl (31.0-35.0); Mean Corpuscular Hemoglobin 26.9 pg (27.0-33.0); Mean Corpuscular Volume 84.7 fL (80.0-98.0); Mean Platelet Volume 12.3 fL (9.4-12.3); Platelet Count 140 X10*3/uL (160-400); Red Blood Count 4.64 X10*6/uL (4.20-5.50); Red Cell Distribution Width 13.2 % (11.0-16.0); White Blood Count 5.9 X10*3/uL (4.8-10.8)
[2021-04-14 17:04] LABS: Anion Gap 11 (12-20); Blood Urea Nitrogen 13 mg/dL (9-16); Carbon Dioxide 27 mmol/L (22-29); Chloride 105 mmol/L (96-108); Creatinine Clr Calc Pharmacy 130.8; Estimated Glomerular Filt Rate > 60; Glucose Random 106 mg/dL (60-115); Lipase 12 U/L (8-78); Potassium 3.7 mmol/L (3.3-5.1); Sodium 139 mmol/L (135-145)
[2021-04-14 17:10] LABS: Troponin-I High Sensitivity < 3.5 ng/L (<3.5-17.0)
--- NOTE | 2021-04-14 17:10 | ED_ITS ---
HPI - Nausea/Vomiting/Diarrhea General Chief complaint: Abdominal Pain Stated complaint: nausea/vomiting Time Seen by Provider: 04/14/21 17:03 Source: patient Mode of arrival: EMS Limitations: no limitations History of Present Illness HPI Narrative: This is a 55-year-old female past medical history significant for chronic idiopathic constipation, IBS, bulimia, coronary artery disease, GERD, hyperlipidemia, diabetes type 2 insulin dependent, COPD, DRE, obesity presenting to the emergency department with epigastric pain, nausea and vomiting since this morning. Patient tells me she may have taken her medications twice by accident, she is unable to tell me which 1 she took twice. She tells me it was an accide nt and she was not intending to hurt herself. She tells me that this is not her typical bully marcel episode. She tells me that the epigastric pain is worse when she vomits. She has been vomiting watery fluid she tells me. Pain is located to the epigastric region, described as burning and severe. She tells me it will not go way and this has been happening since 11:00. She does tell me that the epigastric pain is better when she is not vomiting. No other medical complaints at this time. She tells me this is not her typical bulimia. Denies SI and HI. Patient eating and drinking MD elicited complaint: nausea and vomiting Pertinent past history: bulimia Onset (ago): hour(s) (6) Description of vomiting: watery Description of diarrhea: watery Associated nausea: Yes Associated abdominal pain: Yes Location of pain: epigastric Pain consistency: constant Severity: moderate Exacerbating factors: none Relieving factors: none Context: other (Accidently doubled her dose of her at home meds unsure which one ) Associated symptoms: nausea/vomiting Related Data Home Medications Medication Instructions Recorded Confirmed albuterol sulfate 90 mcg/actuation 2 puff INHALATION Q6H PRN 02/13/20 aerosol inhaler (ProAir HFA) baclofen 10 mg tablet 10 mg PO BID 02/13/20 01/02/21 calcium carbonate 600 mg-vitamin 1 tab PO DAILY 02/13/20 01/02/21 D3 10 mcg (400 unit) tablet doxepin 10 mg capsule 10 mg PO BEDTIME 02/13/20 01/02/21 fluticasone propionate 50 1 spray INTRANASAL DAILY 02/13/20 01/02/21 mcg/actuation nasal spray,suspension (Flonase Allergy Relief) gabapentin 600 mg tablet 600 mg PO TID 02/13/20 01/02/21 guaifenesin 600 mg tablet, 600 mg PO Q12H PRN 02/13/20 01/02/21 extended release 12 hr (Mucinex) ipratropium 0.5 mg-albuterol 3 mg 3 ml INHALATION QID PRN 02/13/20 01/02/21 (2.5 mg base)/3 mL nebulization soln isosorbide mononitrate 60 mg 60 mg PO DAILY 02/13/20 01/02/21 tablet,extended release 24 hr loratadine 10 mg capsule 10 mg PO DAILY 02/13/20 01/02/21 metoprolol succinate 25 mg 12.5 mg PO DAILY 02/13/20 01/02/21 tablet,extended release 24 hr montelukast 10 mg tablet 10 mg PO BEDTIME 02/13/20 01/02/21 (Singulair) prazosin 2 mg capsule 2 mg PO BEDTIME 02/13/20 01/02/21 sertraline 50 mg tablet 50 mg PO DAILY 02/13/20 01/02/21 simvastatin 20 mg tablet 20 mg PO BEDTIME 02/13/20 01/02/21 topiramate 25 mg tablet (Topamax) 25 mg PO DAILY 02/13/20 01/02/21 alcohol swabs (Alcohol Prep Pads) pad TOPICAL BID 12/05/20 01/02/21 buspirone 15 mg tablet 15 mg PO 12/05/20 01/02/21 dulaglutide 0.75 mg/0.5 mL mg SUBCUT QWEEK 12/05/20 01/02/21 subcutaneous pen injector (Trulicity) haloperidol 1 mg tablet 1 mg PO BEDTIME 12/05/20 01/02/21 insulin lispro 200 unit/mL (3 mL) unit SUBCUT 12/05/20 01/02/21 subcutaneous pen (Humalog KwikPen U-200 Insulin) ipratropium 20 mcg-albuterol 100 1 puff INHALATION QID PRN 12/05/20 01/02/21 mcg/actuation mist for inhalation (Combivent Respimat) oxcarbazepine 300 mg tablet 300 mg PO 12/05/20 01/02/21 oxycodone 10 mg tablet 10 mg PO Q12H PRN 12/05/20 01/02/21 paroxetine HCl 40 mg tablet 40 mg PO BEDTIME 12/05/20 01/02/21 pen needle, diabetic 32 gauge x #50 ea 12/05/20 01/02/21 (Pentips) Previous Rx's Medication Instructions Recorded bismuth subsalicylate 262 mg 2 tab PO QID 14 Days #112 tab 01/09/21 chewable tablet pantoprazole 40 mg tablet,delayed 40 mg PO BID #60 tab 02/11/21 release fluticasone propionate 115 2 puff PO BID #12 g 02/23/21 mcg-salmeterol 21 mcg/actuation HFA inhaler (Advair HFA) docusate sodium 100 mg capsule 100 mg PO BEDTIME #30 cap 03/16/21 famotidine 40 mg tablet 40 mg PO BEDTIME #30 tab 03/16/21 sennosides 8.6 mg tablet (Natural 17.2 mg PO BEDTIME #60 tab 03/16/21 Senna Laxative) ondansetron 4 mg disintegrating 4 mg PO ONCE PRN #10 tab 04/14/21 tablet Allergies Allergy/AdvReac Type Severity Reaction Status Date / Time penicillin G [Penicillin G] Allergy Mild SWELLING Verified 04/02/21 11:31 barium sulfate Allergy Unknown HIVES Verified 04/02/21 11:31 [ORAL CONTRAST] Review of Systems Review of Systems: Constitutional : No Weight loss, No Fever, No Chills, No Fatigue, No Malaise ENT/Mouth : No sore throat, No Rhinorrhea Eyes: No Eye Pain, No Swelling, No Redness Cardiovascular : No Chest Pain, No SOB, No Dyspnea on Exertion, No Orthopnea, No Edema, No Palpitations Respiratory : No Cough, No Sputum, No Wheezing Gastrointestinal : + Nausea, + Vomiting, No Diarrhea, No Constipation, No abdominal Pain, No Hematochezia, No Melena Genitourinary : No Dysuria, No Urinary Frequency, No Hematuria, Musculoskeletal : No joint pain, No Myalgias, No Joint Swelling Skin : No Skin Lesions, No rash Neuro : No Weakness, No Numbness, No Dizziness, No Headache Psych : No Anxiety/Panic, No Depression All other systems reviewed and are negative Yes all other systems are reviewed and are negative Gastrointestinal: Gastrointestinal: Reports nausea PMFSH Past Medical History Attestation statement: The following information was validated with the patient. Source: old records reviewed and nursing notes reviewed Medical History Allergic rhinitis Back pain Chronic idiopathic constipation COPD (chronic obstructive pulmonary disease) Depression GERD (gastroesophageal reflux disease) Hyperlipidemia IBS (irritable bowel syndrome) Morbid obesity Nocturnal hypoxemia DRE (obstructive sleep apnea) Restrictive lung disease secondary to obesity Smoker Surgical History History of appendectomy Hx of carpal tunnel repair Hx of section Family History Family History Mother Diabetes Heart muscle disorder caused by another medical condition Father Diabetes Epilepsy Sister No problems noted. Sister No problems noted. Sister No problems noted. Sister No problems noted. Sister No problems noted. Brother No problems noted. Brother No problems noted. Brother No problems noted. Brother No problems noted. Brother No problems noted. Brother No problems noted. Daughter No problems noted. Daughter No problems noted. Son No problems noted. Son No problems noted. Son No problems noted. Social History Social History Alcohol intake: current Alcohol intake frequency: holidays/special occasions only Patient Tobacco Use Status: Former Tobacco user Substance Use Type: Opiates Advance Directives: No Advance Directives Information Provided: No Patient : No Physical Exam Vital Signs: Vital Signs: Last Vital Signs Temp 97.8 F 04/14/21 18:42 Pulse 66 04/14/21 18:42 Resp 16 04/14/21 18:42 BP 102/57 L 04/14/21 18:42 Pulse Ox 98 04/14/21 18:42 BMI result Body Mass Index 39.3 VSS Appearance: Alert.? Oriented X3.? No acute distress.?+ crying telling me she is in alot of pain Head: Normocephalic, atraumatic, no step-offs or deformities Eyes: Pupils equal, round and reactive to light.? ENT: Pharynx normal.? Neck: Normal inspection.? Neck supple.? CVS: Normal heart rate and rhythm.? Pulses normal.? Respiratory: No respiratory distress.? Breath sounds normal.? Abdomen: Soft and nontender.?Negative rosving, murphys, mcburneys, psoas, obturator Normal bowel sounds. Skin: Skin warm and dry.? Normal skin color.? Normal skin turgor.? Extremities: No lower extremity edema.? No calf ttp. 5/5 strength to bilateral upper and lower extremities Back: No midline tenderness, no C-spine tenderness, full range of motion, no CVA tenderness bilaterally Neuro: Oriented X 3.? No motor deficit.? No sensory deficit. CN 2-12 intact Course Reevaluation(s) Reevaluation #1: CBC within normal limits appears to be at patient's baseline. Lipase within normal limits. No acute electrolyte abnormalities. Troponin negative. EKG nonischemic. AST ALT, acetone and bilirubin pending at this time. Patient will be given a GI cocktail Time: 17:16 Reevaluation #2: Acetone negative. Patient's sugars under control unlikely that this is DKA. Patient likely has gastritis. She should follow-up with GI. She should return with worsening symptoms. At this time I do not feel as though it is necessary to do imaging on this patient she has had multiple scans of her abdomen and pelvis within the past year, she has also had an upper GI series with air contrast and liver elastography she has a history of GERD with hiatal hernia. I do not suspect that this is an incarcerated hiatal hernia, patient appears comfortable and she describes the pain as burning. I will obtain imaging just to ensure that there is no new findings on imaging. Time: 18:56 Reevaluation #3: CXR wnl patient will be discharged with gi follow up. Upon rexamination no tenderness on exam. Comfortable with GREGOR ortega gastritis Time: 20:03 MDM - Nausea/Vomiting/Diarrhea MDM Narrative Medical decision making narrative: 1713 55 yo f pmhx constipation, IBS, bulimia, CAD, GERD, HLD, DM 2 insulin dependent, COPD, DRE, obesity presenting w/ nausea, vomiting and epigastric pain since this AM. Tells me this isnt related to her bulemia. Contributes it to taking a double dose of her prepack medications morning. Denies SI HI. Denies alcohol use. Physical examination benign. No pain with palpation of abdomen. Patient is tearful upon my exam and she does tell me that she is having a lot of pain however when I press on her abdomen she does not appear uncomfortable/and reports no pain. Low suspicion for appendicitis, cholecystitis, acute abdomen, SBO and encarcerated hernia. Patient comfortable. Plan at this time is to obtain basic labs. Medical Records Attestation: I reviewed the patient's medical records. Lab Data Attestation: I reviewed the patient's lab results. Result diagrams: 04/14/21 16:43 04/14/21 16:43 Labs: Lab Results 04/14/21 04/14/21 04/14/21 Range/Units 16:43 16:43 16:43 WBC 5.9 (4.8-10.8) X10*3/uL RBC 4.64 (4.20-5.50) X10*6/uL Hgb 12.5 (12.0-16.0) g/dl Hct 39.3 (37.0-47.0) % MCV 84.7 (80.0-98.0) fL MCH 26.9 L (27.0-33.0) pg MCHC 31.8 (31.0-35.0) g/dl RDW 13.2 (11.0-16.0) % Plt Count 140 L (160-400) X10*3/uL MPV 12.3 (9.4-12.3) fL Absolute Nucleated RBC 0.000 (0.0-0.012) X10*3/uL Nucleated RBC % (auto) 0.0 (0.0-0.2) /100WBC Sodium 139 (135-145) mmol/L Potassium 3.7 (3.3-5.1) mmol/L Chloride 105 (96-108) mmol/L Carbon Dioxide 27 (22-29) mmol/L Anion Gap 11 L (12-20) BUN 13 (9-16) mg/dL Creatinine 0.55 (0.5-1.4) mg/dL Estim Creat Clear Calc 130.8 Estimated GFR > 60 Random Glucose 106 (60-115) mg/dL Calcium 9.0 (8.4-10.2) mg/dL Total Bilirubin 0.5 (0.0-1.0) mg/dL AST 16 (5-31) U/L ALT 16 (0-31) U/L Troponin I High Sens < 3.5 (<3.5-17.0) ng/L Lipase 12 (8-78) U/L Acetone, Qual (Negative) 04/14/21 Range/Units 16:43 WBC (4.8-10.8) X10*3/uL RBC (4.20-5.50) X10*6/uL Hgb (12.0-16.0) g/dl Hct (37.0-47.0) % MCV (80.0-98.0) fL MCH (27.0-33.0) pg MCHC (31.0-35.0) g/dl RDW (11.0-16.0) % Plt Count (160-400) X10*3/uL MPV (9.4-12.3) fL Absolute Nucleated RBC (0.0-0.012) X10*3/uL Nucleated RBC % (auto) (0.0-0.2) /100WBC Sodium (135-145) mmol/L Potassium (3.3-5.1) mmol/L Chloride (96-108) mmol/L Carbon Dioxide (22-29) mmol/L Anion Gap (12-20) BUN (9-16) mg/dL Creatinine (0.5-1.4) mg/dL Estim Creat Clear Calc Estimated GFR Random Glucose (60-115) mg/dL Calcium (8.4-10.2) mg/dL Total Bilirubin (0.0-1.0) mg/dL AST (5-31) U/L ALT (0-31) U/L Troponin I High Sens (<3.5-17.0) ng/L Lipase (8-78) U/L Acetone, Qual Negative (Negative) ECG Data Attestation: I personally reviewed and interpreted this ECG as follows: ECG interpretation date: 04/14/21 ECG interpretation time: 17:17 Prior ECG tracings: available for review Interpretation: Ventricular rate of 70, IL normal, QRS normal, QT/QTC normal. EKG shows normal sinus rhythm, no ST elevations or inversions concerning for ischemia. When compared to EKG from December 2020 there is no significant changes. Critical Care Time Critical Care Time Critical Care Time: No Discharge Plan Discharge Clinical Impression: Nausea & vomiting, Gastritis Patient Disposition: Home, Self-Care Instructions: Acute Nausea and Vomiting (ED) Additional Instructions: Take your medications as prescribed. Follow-up with your primary care provider this week. Follow up with GI doctor this week. Return to the emergency department with new or worsening symptoms. Such as fevers, chills, chest pain, shortness breath, nausea, vomiting, abdominal pain, weakness, lethargy, vision changes, dizziness, headache. In case of emergency call 911 Prescriptions: New ondansetron 4 mg tablet,disintegrating 4 mg PO ONCE PRN (Reason: nausea and vomiting) Qty: 10 0RF No Action bismuth subsalicylate 262 mg tablet,chewable 2 tab PO QID 14 Days Qty: 112 0RF Advair HFA 115-21 mcg/actuation HFA aerosol inhaler 2 puff PO BID Qty: 12 3RF fluticasone propionate [Flonase Allergy Relief] 50 mcg/actuation spray,suspension 1 spray intranasal DAILY 0RF Rx Instructions: administer into each nostril montelukast [Singulair] 10 mg tablet 10 mg PO BEDTIME 0RF albuterol sulfate [ProAir HFA] 90 mcg/actuation HFA aerosol inhaler 2 puff inhalation Q6H PRN0RF ipratropium-albuterol 0.5 mg-3 mg(2.5 mg base)/3 mL solution for nebulization 3 ml inhalation QID PRN0RF sertraline 50 mg tablet 50 mg PO DAILY 0RF doxepin 10 mg capsule 10 mg PO BEDTIME 0RF prazosin 2 mg capsule 2 mg PO BEDTIME 0RF guaifenesin [Mucinex] 600 mg tablet extended release 12hr 600 mg PO Q12H PRN0RF calcium carbonate-vitamin D3 600 mg(1,500mg) -400 unit tablet 1 tab PO DAILY 0RF simvastatin 20 mg tablet 20 mg PO BEDTIME 0RF gabapentin 600 mg tablet 600 mg PO TID 0RF metoprolol succinate 25 mg tablet extended release 24 hr 12.5 mg PO DAILY 0RF baclofen 10 mg tablet 10 mg PO BID 0RF isosorbide mononitrate 60 mg tablet extended release 24 hr 60 mg PO DAILY 0RF topiramate [Topamax] 25 mg tablet 25 mg PO DAILY 0RF loratadine 10 mg capsule 10 mg PO DAILY 0RF Combivent Respimat 20-100 mcg/actuation mist 1 puff inhalation QID PRN0RF oxycodone 10 mg tablet 10 mg PO Q12H PRN0RF Humalog KwikPen Insulin 200 unit/mL (3 mL) insulin pen subcut 0RF (DME) pen needle, diabetic [Pentips] 32 gauge x 5/32 needle See Rx Instructions ea .ROUTE DAILY Qty: 50 0RF Rx Instructions: As directed Trulicity 0.75 mg/0.5 mL pen injector subcut QWEEK 0RF buspirone 15 mg tablet 15 mg PO 0RF paroxetine HCl 40 mg tablet 40 mg PO BEDTIME 0RF alcohol swabs [Alcohol Prep Pads] Pads, Medicated topical BID 0RF oxcarbazepine 300 mg tablet 300 mg PO 0RF haloperidol 1 mg tablet 1 mg PO BEDTIME 0RF pantoprazole 40 mg tablet,delayed release (DR/EC) 40 mg PO BID Qty: 60 4RF docusate sodium 100 mg capsule 100 mg PO BEDTIME Qty: 30 3RF sennosides [Natural Senna Laxative] 8.6 mg tablet 17.2 mg PO BEDTIME Qty: 60 2RF famotidine 40 mg tablet 40 mg PO BEDTIME Qty: 30 3RF Referrals: Renny Frazier [Physician] - 2 days Name,MD Kiel [Primary Care Provider] - 2 days Stand Alone Forms: Work/School Release
[2021-04-14 17:31] LABS: Alanine Aminotransferase 16 U/L (0-31); Aspartate Amino Transferase 16 U/L (5-31); Bilirubin Total 0.5 mg/dL (0.0-1.0)
[2021-04-14] MEDS: Lidocaine HCl Viscous 2 % 15 ML SOLUTION MUCOUS MEM (17:33)
[2021-04-14] MEDS: Famotidine 20 MG TABLET PO (17:33)
[2021-04-14] MEDS: Magnesium Hydrox/Alum Hydrox 30 ML ORAL.SUSP PO (17:33)
[2021-04-14 18:17] LABS: Acetone, serum QL Negative (Negative)
--- NOTE | 2021-04-14 18:30 | PC.NURSE ---
patient reports pain is unimproved at this time. patient resting quietly before RN entered room.
[2021-04-14 18:42] VITALS: BP 102/57; PULSE 66; RESP 16; TEMP 36.6; O2SAT 98
[2021-04-14 20:20] VITALS: BP 118/53; PULSE 78; RESP 16; TEMP 36.9; O2SAT 97
== END 2021-04-14 20:22 | disposition home or self-care (01) ==
PROVIDERS: Physician Assistant; Emergency Provider Emergency Medicine Emergency Medical Services; PCP Internal Medicine Geriatric Medicine
DX: K29.70 Gastritis, unspecified, without bleeding (principal); R11.2 Nausea with vomiting, unspecified; E78.5 Hyperlipidemia, unspecified; E11.9 Type 2 diabetes mellitus without complications; F17.200 Nicotine dependence, unspecified, uncomplicated; Z79.4 Long term (current) use of insulin
CPT/HCPCS: 36415; 71045; 74018; 80048; 82009; 82247; 83690; 84450; 84460; 84484; 85027; 93005; 99284

== ENCOUNTER → 2021-04-20 08:45 | Outpatient (BNVA) | payer MEDICAID, SELFPAY | PROVIDERS: PCP Internal Medicine Geriatric Medicine; Referring Provider Internal Medicine Geriatric Medicine; Visit Provider Physician Assistant Surgical | DX: Z12.11 Encounter for screening for malignant neoplasm of colon (principal); K59.04 Chronic idiopathic constipation; K58.1 Irritable bowel syndrome with constipation; K21.9 Gastro-esophageal reflux disease without esophagitis | CPT/HCPCS: 99212 ==

== ENCOUNTER → 2021-04-23 10:45 | Outpatient (BNVA) | payer MEDICAID, SELFPAY | PROVIDERS: PCP Internal Medicine Geriatric Medicine; Referring Provider Internal Medicine Geriatric Medicine; Visit Provider Physician Assistant ==

== ENCOUNTER → 2021-04-29 08:50 | Outpatient (BNVA) | payer MEDICAID, SELFPAY | PROVIDERS: PCP Internal Medicine Geriatric Medicine; Visit Provider Dietitian, Registered | DX: E66.9 Obesity, unspecified (principal); Z68.39 Body mass index [BMI] 39.0-39.9, adult; Z71.3 Dietary counseling and surveillance | CPT/HCPCS: 97803 ==

== ENCOUNTER → 2021-04-30 09:54 | Outpatient (BNVA) | payer MEDICAID, SELFPAY | PROVIDERS: PCP Internal Medicine Geriatric Medicine; Referring Provider Internal Medicine Geriatric Medicine; Visit Provider Physician Assistant Surgical ==

== ENCOUNTER → 2021-05-07 08:41 | Outpatient (BNVA) | payer MEDICAID, SELFPAY | PROVIDERS: PCP Internal Medicine Geriatric Medicine; Referring Provider Internal Medicine Geriatric Medicine; Visit Provider Physician Assistant | DX: Z13.89 Encounter for screening for other disorder (principal) ==

== ENCOUNTER 2021-05-11 10:45 | Day surgery (SDC) | payer MEDICAID, SELFPAY ==
[2021-05-07 10:46] VITALS: BMI 40.9
--- NOTE | 2021-05-07 14:34 | HO.ANESPROP2 ---
Documented by User: Charisma Bennett NP 05/07/21 14:43 HPI - Anesthesia Eval Consult details Narrative: 55yo F for Upper Endoscopy and Colonoscopy O2 dependant @ 2 L PMFSH Active Problems Active Problems: All Active Problems (Updated 05/07/21 @ 10:46 by Ignacia Meyer, MARINA) Tenderness of back (Acute) Tenderness (Acute) Kidney, malrotation (Acute) Insulin dependent type 2 diabetes mellitus (Acute) Coronary artery disease (Acute) Bulimia nervosa in partial remission (Acute) Allergic rhinitis (Acute) Chronic idiopathic constipation (Acute) IBS (irritable bowel syndrome) (Acute) Back pain (Acute) GERD (gastroesophageal reflux disease) (Acute) Hyperlipidemia (Acute) Depression (Acute) Restrictive lung disease secondary to obesity (Acute) Smoker (Acute) COPD (chronic obstructive pulmonary disease) (Acute) Nocturnal hypoxemia (Acute) DRE (obstructive sleep apnea) (Acute) Morbid obesity (Acute) Past Medical History Medical History Allergic rhinitis Back pain Chronic idiopathic constipation COPD (chronic obstructive pulmonary disease) Depression GERD (gastroesophageal reflux disease) Hyperlipidemia IBS (irritable bowel syndrome) Morbid obesity Nocturnal hypoxemia DRE (obstructive sleep apnea) Oxygen dependent Restrictive lung disease secondary to obesity Smoker Family History Family History Mother Diabetes Heart muscle disorder caused by another medical condition Father Diabetes Epilepsy Sister No problems noted. Sister No problems noted. Sister No problems noted. Sister No problems noted. Sister No problems noted. Brother No problems noted. Brother No problems noted. Brother No problems noted. Brother No problems noted. Brother No problems noted. Brother No problems noted. Daughter No problems noted. Daughter No problems noted. Son No problems noted. Son No problems noted. Son No problems noted. Surgical History Surgical History History of appendectomy Hx of carpal tunnel repair Hx of section Social History Social History Alcohol intake: current Alcohol intake frequency: holidays/special occasions only Patient Tobacco Use Status: Former Tobacco user Use of substances other than those prescribed or required for medical reasons: No Substance Use Type: Opiates Are you DNR?: No Advance Directives: No Advance Directives Information Provided: Yes Meds Allergies Allergy/AdvReac Type Severity Reaction Status Date / Time penicillin G [Penicillin G] Allergy Mild SWELLING Verified 04/20/21 09:13 barium sulfate Allergy Unknown HIVES Verified 04/20/21 09:13 [ORAL CONTRAST] Home Medications Medication Instructions Recorded Confirmed Last Taken Type albuterol sulfate 90 mcg/actuation 2 puff INHALATION Q6H PRN 02/13/20 Unknown History aerosol inhaler (ProAir HFA) baclofen 10 mg tablet 10 mg PO BID 02/13/20 01/02/21 Unknown History calcium carbonate 600 mg-vitamin 1 tab PO DAILY 02/13/20 01/02/21 Unknown History D3 10 mcg (400 unit) tablet doxepin 10 mg capsule 10 mg PO BEDTIME 02/13/20 01/02/21 Unknown History fluticasone propionate 50 1 spray INTRANASAL DAILY 02/13/20 01/02/21 Unknown History mcg/actuation nasal spray,suspension (Flonase Allergy Relief) gabapentin 600 mg tablet 600 mg PO TID 02/13/20 01/02/21 Unknown History guaifenesin 600 mg tablet, 600 mg PO Q12H PRN 02/13/20 01/02/21 Unknown History extended release 12 hr (Mucinex) ipratropium 0.5 mg-albuterol 3 mg 3 ml INHALATION QID PRN 02/13/20 01/02/21 Unknown History (2.5 mg base)/3 mL nebulization soln isosorbide mononitrate 60 mg 60 mg PO DAILY 02/13/20 01/02/21 Unknown History tablet,extended release 24 hr loratadine 10 mg capsule 10 mg PO DAILY 02/13/20 01/02/21 Unknown History metoprolol succinate 25 mg 12.5 mg PO DAILY 02/13/20 01/02/21 Unknown History tablet,extended release 24 hr montelukast 10 mg tablet 10 mg PO BEDTIME 02/13/20 01/02/21 Unknown History (Singulair) prazosin 2 mg capsule 2 mg PO BEDTIME 02/13/20 01/02/21 Unknown History sertraline 50 mg tablet 50 mg PO DAILY 02/13/20 01/02/21 Unknown History simvastatin 20 mg tablet 20 mg PO BEDTIME 02/13/20 01/02/21 Unknown History topiramate 25 mg tablet (Topamax) 25 mg PO DAILY 02/13/20 01/02/21 Unknown History alcohol swabs (Alcohol Prep Pads) pad TOPICAL BID 12/05/20 01/02/21 Unknown History buspirone 15 mg tablet 15 mg PO 12/05/20 01/02/21 Unknown History dulaglutide 0.75 mg/0.5 mL mg SUBCUT QWEEK 12/05/20 01/02/21 Unknown History subcutaneous pen injector (Trulicity) haloperidol 1 mg tablet 1 mg PO BEDTIME 12/05/20 01/02/21 Unknown History insulin lispro 200 unit/mL (3 mL) unit SUBCUT 12/05/20 01/02/21 Unknown History subcutaneous pen (Humalog KwikPen U-200 Insulin) ipratropium 20 mcg-albuterol 100 1 puff INHALATION QID PRN 12/05/20 01/02/21 Unknown History mcg/actuation mist for inhalation (Combivent Respimat) oxcarbazepine 300 mg tablet 300 mg PO 12/05/20 01/02/21 Unknown History oxycodone 10 mg tablet 10 mg PO Q12H PRN 12/05/20 01/02/21 Unknown History paroxetine HCl 40 mg tablet 40 mg PO BEDTIME 12/05/20 01/02/21 Unknown History pen needle, diabetic 32 gauge x #50 ea 12/05/20 01/02/21 Unknown History (Pentips) Exam Exam Date and Time: May 07, 2021 1434 Height,Weight and Vital Signs: Height 5 ft 3 in Weight 104.78 kg Pertinent Lab Results Pertinent Lab Results: Laboratory Tests 04/14/21 04/14/21 16:43 16:43 WBC 5.9 Hgb 12.5 Hct 39.3 Plt Count 140 L Sodium 139 Potassium 3.7 Chloride 105 Carbon Dioxide 27 BUN 13 Creatinine 0.55 Assessment and Plan Assessment Anesthesia Assessment: Chart Reviewed Documented by User: Maryann Sewell MD 05/11/21 12:11 PMFSH Past Medical History Medical History Allergic rhinitis Back pain Chronic idiopathic constipation COPD (chronic obstructive pulmonary disease) Depression GERD (gastroesophageal reflux disease) Hyperlipidemia IBS (irritable bowel syndrome) Morbid obesity Nocturnal hypoxemia DRE (obstructive sleep apnea) Oxygen dependent Restrictive lung disease secondary to obesity Smoker Family History Family History Mother Diabetes Heart muscle disorder caused by another medical condition Father Diabetes Epilepsy Sister No problems noted. Sister No problems noted. Sister No problems noted. Sister No problems noted. Sister No problems noted. Brother No problems noted. Brother No problems noted. Brother No problems noted. Brother No problems noted. Brother No problems noted. Brother No problems noted. Daughter No problems noted. Daughter No problems noted. Son No problems noted. Son No problems noted. Son No problems noted. Family history of problems with anesthesia: No Surgical History Surgical History History of appendectomy Hx of carpal tunnel repair Hx of section History of Problems with Anesthesia: No Social History Social History Alcohol intake: current Alcohol intake frequency: holidays/special occasions only Patient Tobacco Use Status: Former Tobacco user Use of substances other than those prescribed or required for medical reasons: No Substance Use Type: Opiates Are you DNR?: No Advance Directives: No Advance Directives Information Provided: Yes Meds Allergies Allergy/AdvReac Type Severity Reaction Status Date / Time penicillin G [Penicillin G] Allergy Mild SWELLING Verified 04/20/21 09:13 barium sulfate Allergy Unknown HIVES Verified 04/20/21 09:13 [ORAL CONTRAST] Home Medications Medication Instructions Recorded Confirmed Last Taken Type albuterol sulfate 90 mcg/actuation 2 puff INHALATION Q6H PRN 02/13/20 Unknown History aerosol inhaler (ProAir HFA) baclofen 10 mg tablet 10 mg PO BID 02/13/20 01/02/21 Unknown History calcium carbonate 600 mg-vitamin 1 tab PO DAILY 02/13/20 01/02/21 Unknown History D3 10 mcg (400 unit) tablet doxepin 10 mg capsule 10 mg PO BEDTIME 02/13/20 01/02/21 Unknown History fluticasone propionate 50 1 spray INTRANASAL DAILY 02/13/20 01/02/21 Unknown History mcg/actuation nasal spray,suspension (Flonase Allergy Relief) gabapentin 600 mg tablet 600 mg PO TID 02/13/20 01/02/21 Unknown History guaifenesin 600 mg tablet, 600 mg PO Q12H PRN 02/13/20 01/02/21 Unknown History extended release 12 hr (Mucinex) ipratropium 0.5 mg-albuterol 3 mg 3 ml INHALATION QID PRN 02/13/20 01/02/21 Unknown History (2.5 mg base)/3 mL nebulization soln isosorbide mononitrate 60 mg 60 mg PO DAILY 02/13/20 01/02/21 Unknown History tablet,extended release 24 hr loratadine 10 mg capsule 10 mg PO DAILY 02/13/20 01/02/21 Unknown History metoprolol succinate 25 mg 12.5 mg PO DAILY 02/13/20 01/02/21 Unknown History tablet,extended release 24 hr montelukast 10 mg tablet 10 mg PO BEDTIME 02/13/20 01/02/21 Unknown History (Singulair) prazosin 2 mg capsule 2 mg PO BEDTIME 02/13/20 01/02/21 Unknown History sertraline 50 mg tablet 50 mg PO DAILY 02/13/20 01/02/21 Unknown History simvastatin 20 mg tablet 20 mg PO BEDTIME 02/13/20 01/02/21 Unknown History topiramate 25 mg tablet (Topamax) 25 mg PO DAILY 02/13/20 01/02/21 Unknown History alcohol swabs (Alcohol Prep Pads) pad TOPICAL BID 12/05/20 01/02/21 Unknown History buspirone 15 mg tablet 15 mg PO 12/05/20 01/02/21 Unknown History dulaglutide 0.75 mg/0.5 mL mg SUBCUT QWEEK 12/05/20 01/02/21 Unknown History subcutaneous pen injector (Trulicity) haloperidol 1 mg tablet 1 mg PO BEDTIME 12/05/20 01/02/21 Unknown History insulin lispro 200 unit/mL (3 mL) unit SUBCUT 12/05/20 01/02/21 Unknown History subcutaneous pen (Humalog KwikPen U-200 Insulin) ipratropium 20 mcg-albuterol 100 1 puff INHALATION QID PRN 12/05/20 01/02/21 Unknown History mcg/actuation mist for inhalation (Combivent Respimat) oxcarbazepine 300 mg tablet 300 mg PO 12/05/20 01/02/21 Unknown History oxycodone 10 mg tablet 10 mg PO Q12H PRN 12/05/20 01/02/21 Unknown History paroxetine HCl 40 mg tablet 40 mg PO BEDTIME 12/05/20 01/02/21 Unknown History pen needle, diabetic 32 gauge x #50 ea 12/05/20 01/02/21 Unknown History (Pentips) Exam Airway Mallampati Class: II (Edentulous on bottom, missing a couple on top) TM Dist: >3cm Neck ROM: Full Heart: rrr Lungs: cta Assessment and Plan Assessment Anesthesia Assessment: Anesthesia Plan Discussed and Chart Reviewed Final Anesthetic Review Family History of Problems with Anesthesia: No History of Problems with Anesthesia: No NPO: Yes ASA Class: III Final Preanesthetic Review: No Changes in Pt Med Stat and Meds/Allgs Chart Reviewed Patient Risk: Intermediate Procedure Risk: Intermediate Anesthetic Plan Anesthetic Plan: MAC: Disposition: Standard PACU
[2021-05-11 11:49] VITALS: BP 113/86; PULSE 71; RESP 18; TEMP 36.3; O2SAT 97
[2021-05-11 11:57] LABS: Glucose, Whole Blood 82 mg/dL (60-115)
[2021-05-11] MEDS: Lactated Ringers 1,000 ML 100 ML IVCONT (12:01)
--- NOTE | 2021-05-11 12:27 | MHC.SHP ---
Pre-Procedural Eval Section A Date of Service: 05/11/21 The patient is an INPATIENT: No Changes since office visit: Yes Patient answered all questions; No Cold of Flu in the past 2 weeks, No New Medical Problems and No Changes in Medication The History & Physical has been completed within 30 days and I have reviewed it.: Yes Section B Chief Complaint: Constipation, Gerd Allergies: Allergies Allergy/AdvReac Type Severity Reaction Status Date / Time penicillin G [Penicillin G] Allergy Mild SWELLING Verified 04/20/21 09:13 barium sulfate Allergy Unknown HIVES Verified 04/20/21 09:13 [ORAL CONTRAST] Plan I have reviewed the history and physical and performed a pertinent physical examination on my patient. No changes have occurred unless specified.
--- NOTE | 2021-05-11 12:28 | PM.OP ---
Brief Operative Note Date of Service: 05/11/21 Pre-op diagnosis: Colon cancer screening, GERD, dyspepsia, abdominal pain, history of Helicobacter pylori infection Post-op diagnosis: other (GERD, gastritis, colon polyps, diverticulosis) Procedure: FLEXIBLE TRANSORAL UPPER GASTROINTESTINAL ENDOSCOPY WITH BIOPSIES AND COLONOSCOPY TILL CECUM WITH UPPER ENDOSCOPY Consent: Indications for the procedure and potential complications of bleeding, perforation, reaction to medications and missed diagnosis were discussed with the patient and informed consent was obtained. Instrument: Olympus GIF H 190 mid size upper endoscope Monitoring: Vital signs and clinical assessment, continuous EKG monitoring, Pulse oximetry, Carbon Dioxide monitoring and blood pressure monitoring were done throughout the procedure. Procedure: The patient was placed in the left lateral decubitis position and pre-procedure medications were administered and a bite block was placed. The endoscope was inserted into the mouth and advanced under direct vision to the third part of duodenum. A careful inspection was made as the upper endoscope was withdrawn including a retroflexed examination of the proximal stomach; Findings and interventions are described below. Findings: Larynx: Normal Esophagus: GE junction at 36 cms. No esophagitis or Franklin's. Stomach: Moderate diffuse gastric erythema. Biopsies were obtained from the antrum and body of the stomach. Grade 2 flap valve on retroflexed examination of the cardia. Duodenum: Normal bulb and descending duodenum. Biopsies obtained from 3rd part of duodenum to check for celiac sprue Intervention: Biopsies as noted above COLONOSCOPY PROCEDURE NOTE Consent: Indications for the procedure and potential complications of bleeding, perforation, reaction to medications and missed diagnosis were discussed with the patient and informed consent was obtained. Instrument: Olympus PCF H 190 L variable stiffness pediatric colonoscope Monitoring: Vital signs and clinical assessment, intermittent blood pressure monitoring, continuous EKG monitoring, Pulse oximetry and Carbon Dioxide monitoring were done throughout the procedure. Colon withdrawl time was 21 minutes. Procedure: The patient was placed in the left lateral decubitis position and pre-procedure medications were administered. After a digital rectal examination of the ano-rectum, the video colonoscope was inserted into the rectum and advanced through the colon to the cecum. The colonoscope was slowly withdrawn in a retrograde panoramic fashion and the colon mucosa was carefully examined including a retroflexed view of the rectum. Findings and interventions are described below. Procedure Difficulty: : Without difficulty Findings: Terminal Ileum: Not evaluated Cecum: A 3-4 mm sessile polyp in the middle of the ICV removed with a cold bx. Ascending Colon: Normal Transverse Colon: A 12-15 mm sessile polyp removed with a hot snare Descending Colon: Normal Sigmoid Colon: A 4-5 mm sessile polyp removed with a cold bx. Moderate diverticulosis Rectum: Normal Ano-rectum: Normal Colon preparation: Good after some irrigation Impression and Post Procedure Diagnosis: Endoscopy Findings: STOMACH: Moderate diffuse gastric erythema. Biopsies were obtained from the antrum and body of the stomach. DUODENUM: Normal - biopsied to check for celiac sprue Colonoscopy Findings: Three small to medium sized polyps removed Moderate diverticulosis seen in the sigmoid colon Plan: Await pathology results Patient has an appointment on 05/26/21 in the GI Clinic with Lacey Manuel FNP-BC . Repeat Colonoscopy interval based on path results - in 3-5 years if polyps are adenomatous and 10 years if polyps are hyperplastic. Above findings were reviewed with the patient and GERD, colon polyps and diverticulosis handouts were given in the discharge area Surgeon: Ayse Jerome MD Anesthesia: MAC (Teressa Davis CRNA) Was an Marine Water Tender used for this Procedure?: Yes Marine Water Tender: Josafat Murillo Estimated blood loss (mL): 0 Pathology: other (a. small bowel bx r/o celiac disease b. antrum r/o h pylori c. gastric body d. transverse colon polyp e. polyp on ileocecal valve f. sigmoid polyp) Condition: stable Disposition: PACU
--- NOTE | 2021-05-11 12:33 | W.PM.OPN ---
Operative Note Operative Note Date of Service: 05/11/21 Narrative: Pre-op diagnosis: Colon cancer screening, GERD, dyspepsia, abdominal pain, history of Helicobacter pylori infection Post-op diagnosis:?other (GERD, gastritis, colon polyps, diverticulosis) Procedure: FLEXIBLE TRANSORAL UPPER GASTROINTESTINAL ENDOSCOPY WITH BIOPSIES AND COLONOSCOPY TILL CECUM WITH BIOPSIES AND SNARE POLYPECTOMY UPPER ENDOSCOPY Consent:?Indications for the procedure and potential complications of bleeding, perforation, reaction to medications and missed diagnosis were discussed with the patient and informed consent was obtained. Instrument:?Olympus GIF H 190 mid size upper endoscope Monitoring: Vital signs and clinical assessment, continuous EKG monitoring, Pulse oximetry, Carbon Dioxide monitoring and blood pressure monitoring were done throughout the procedure. Procedure:?The patient was placed in the left lateral decubitis position and pre-procedure medications were administered and a bite block was placed. The endoscope was inserted into the mouth and advanced under direct vision to the third part of duodenum. A careful inspection was made as the upper endoscope was withdrawn including a retroflexed examination of the proximal stomach; Findings and interventions are described below. Findings: Larynx:? Normal Esophagus:?GE junction at 36 cms. No esophagitis or Franklin's. Stomach:?Moderate diffuse gastric erythema. Biopsies were obtained from the antrum and body of the stomach. Grade 2 flap valve on retroflexed examination of the cardia. Duodenum:?Normal bulb and descending duodenum.? Biopsies obtained from 3rd part of duodenum to check for celiac sprue Intervention:?Biopsies as noted above COLONOSCOPY PROCEDURE NOTE Consent:?Indications for the procedure and potential complications of bleeding, perforation, reaction to medications and missed diagnosis were discussed with the patient and informed consent was obtained. Instrument:?Olympus PCF H 190 L variable stiffness pediatric colonoscope Monitoring:?Vital signs and clinical assessment, intermittent blood pressure monitoring, continuous EKG monitoring, Pulse oximetry and Carbon Dioxide monitoring were done throughout the procedure. Colon withdrawl time was 21 minutes. Procedure:?The patient was placed in the left lateral decubitis position and pre-procedure medications were administered. After a digital rectal examination of the ano-rectum, the video colonoscope was inserted into the rectum and advanced through the colon to the cecum. The colonoscope was slowly withdrawn in a retrograde panoramic fashion and the colon mucosa was carefully examined including a retroflexed view of the rectum. Findings and interventions are described below. Procedure Difficulty:?: Without difficulty Findings: Terminal Ileum: Not evaluated Cecum: A 3-4 mm sessile polyp in the middle of the ICV removed with a cold bx. Ascending Colon:??Normal Transverse Colon:??A 12-15 mm sessile polyp removed with a hot snare Descending Colon:? Normal Sigmoid Colon:??A 4-5 mm sessile polyp removed with a cold bx. Moderate diverticulosis Rectum:??Normal Ano-rectum:?Normal Colon preparation:? Good after some irrigation Impression and Post Procedure Diagnosis: Endoscopy Findings: STOMACH: Moderate diffuse gastric erythema. Biopsies were obtained from the antrum and body of the stomach. DUODENUM: Normal - biopsied to check for celiac sprue Colonoscopy Findings: Three small to medium sized polyps removed Moderate diverticulosis seen in the sigmoid colon Plan: Await pathology results Patient has an appointment on 05/26/21 in the GI Clinic with? Lacey Manuel FNP-BC . Repeat Colonoscopy interval based on path results - in 3-5 years if polyps are adenomatous and 10 years if polyps are hyperplastic. Above findings were reviewed with the patient and GERD, colon polyps and diverticulosis handouts were given in the discharge area Surgeon: Ayse Jerome MD Anesthesia:?MAC (Teressa Davis CRNA) Was an Planner Intern used for this Procedure?:?Yes Planner Intern:?Josafat Murillo Estimated blood loss (mL):?0 Pathology:?other (a. small bowel bx r/o celiac disease? b. antrum r/o h pylori? c. gastric body? d. transverse colon polyp? e. polyp on ileocecal valve? f. sigmoid polyp) Condition:?stable Disposition:?PACU
[2021-05-11 13:26] VITALS: BP 93/54; PULSE 67; RESP 16; TEMP 36.3; O2SAT 98
[2021-05-11 13:40] VITALS: BP 111/65; PULSE 68; RESP 18; TEMP 36.2; O2SAT 98
== END 2021-05-11 14:26 | disposition home or self-care (01) ==
PROVIDERS: PCP Internal Medicine Geriatric Medicine; Visit Provider Internal Medicine Gastroenterology
PROC: (CPT 45385; principal; 2021-05-11 12:00)
DX: Z12.11 Encounter for screening for malignant neoplasm of colon (principal); D12.3 Benign neoplasm of transverse colon; D12.0 Benign neoplasm of cecum; K63.5 Polyp of colon; K57.30 Diverticulosis of large intestine without perforation or abscess without bleeding; K59.04 Chronic idiopathic constipation; K21.9 Gastro-esophageal reflux disease without esophagitis; K29.50 Unspecified chronic gastritis without bleeding; J44.9 Chronic obstructive pulmonary disease, unspecified; J30.9 Allergic rhinitis, unspecified; E66.01 Morbid (severe) obesity due to excess calories; G47.33 Obstructive sleep apnea (adult) (pediatric); G47.36 Sleep related hypoventilation in conditions classified elsewhere; Z99.81 Dependence on supplemental oxygen; J98.4 Other disorders of lung; F32.9 Major depressive disorder, single episode, unspecified; K58.9 Irritable bowel syndrome, unspecified; E78.5 Hyperlipidemia, unspecified; E11.9 Type 2 diabetes mellitus without complications; Z79.4 Long term (current) use of insulin; Z79.51 Long term (current) use of inhaled steroids; Z79.899 Other long term (current) drug therapy; Z88.0 Allergy status to penicillin; Z91.041 Radiographic dye allergy status; F17.210 Nicotine dependence, cigarettes, uncomplicated
CPT/HCPCS: 45385; 45380; 43239; 82947; 88305; 88342

== ENCOUNTER → 2021-05-21 10:56 | Outpatient (BNVA) | payer MEDICAID, SELFPAY | PROVIDERS: PCP Internal Medicine Geriatric Medicine; Visit Provider Internal Medicine | DX: J44.9 Chronic obstructive pulmonary disease, unspecified (principal); J98.4 Other disorders of lung; E66.01 Morbid (severe) obesity due to excess calories; G47.33 Obstructive sleep apnea (adult) (pediatric); G47.34 Idiopathic sleep related nonobstructive alveolar hypoventilation | CPT/HCPCS: 99212 ==

== ENCOUNTER → 2021-05-26 08:53 | Outpatient (BNVA) | payer MEDICAID, SELFPAY | PROVIDERS: PCP Internal Medicine Geriatric Medicine; Referring Provider Internal Medicine Geriatric Medicine; Visit Provider Nurse Practitioner Family | DX: K58.1 Irritable bowel syndrome with constipation (principal); K21.9 Gastro-esophageal reflux disease without esophagitis; K59.04 Chronic idiopathic constipation; K57.30 Diverticulosis of large intestine without perforation or abscess without bleeding; Z86.010 Personal history of colon polyps; Z79.899 Other long term (current) drug therapy; Z98.890 Other specified postprocedural states | CPT/HCPCS: 99212 ==

== ENCOUNTER → 2021-05-29 08:40 | Outpatient (BNVA) | payer MEDICAID, SELFPAY | PROVIDERS: PCP Internal Medicine Geriatric Medicine; Referring Provider Surgery; Visit Provider Dietitian, Registered | DX: E66.9 Obesity, unspecified (principal) | CPT/HCPCS: 97803 ==

== ENCOUNTER → 2021-06-30 08:06 | Outpatient (BNVA) | payer MEDICAID, SELFPAY | PROVIDERS: PCP Internal Medicine Geriatric Medicine; Visit Provider Dietitian, Registered | DX: Z13.89 Encounter for screening for other disorder (principal) ==

== ENCOUNTER → 2021-09-17 10:42 | Outpatient (BNVA) | payer MEDICAID, SELFPAY | PROVIDERS: PCP Internal Medicine Geriatric Medicine; Visit Provider Internal Medicine | DX: J98.4 Other disorders of lung (principal); J44.9 Chronic obstructive pulmonary disease, unspecified; G47.33 Obstructive sleep apnea (adult) (pediatric); G47.34 Idiopathic sleep related nonobstructive alveolar hypoventilation; E66.01 Morbid (severe) obesity due to excess calories; Z68.41 Body mass index [BMI] 40.0-44.9, adult | CPT/HCPCS: 99212 ==

== ENCOUNTER → 2021-09-21 08:43 | Outpatient (BNVA) | payer MEDICAID, SELFPAY | PROVIDERS: PCP Internal Medicine Geriatric Medicine; Visit Provider Nurse Practitioner Family | DX: K58.1 Irritable bowel syndrome with constipation (principal); K21.9 Gastro-esophageal reflux disease without esophagitis; Z86.010 Personal history of colon polyps; Z79.899 Other long term (current) drug therapy | CPT/HCPCS: 99212 ==

== ENCOUNTER → 2021-09-23 11:24 | Outpatient (BNVA) | payer MEDICAID, SELFPAY | PROVIDERS: PCP Internal Medicine Geriatric Medicine; Visit Provider Dietitian, Registered | DX: E66.01 Morbid (severe) obesity due to excess calories (principal) | CPT/HCPCS: 97803 ==

== ENCOUNTER → 2021-10-15 10:58 | Outpatient (BNVA) | payer MEDICAID, SELFPAY | PROVIDERS: PCP Internal Medicine Geriatric Medicine; Visit Provider Internal Medicine | DX: J44.9 Chronic obstructive pulmonary disease, unspecified (principal); J98.4 Other disorders of lung; G47.33 Obstructive sleep apnea (adult) (pediatric); G47.34 Idiopathic sleep related nonobstructive alveolar hypoventilation; E66.01 Morbid (severe) obesity due to excess calories; Z87.891 Personal history of nicotine dependence | CPT/HCPCS: 99212 ==

== ENCOUNTER → 2021-10-19 11:28 | Outpatient (BNVA) | payer MEDICAID, SELFPAY | PROVIDERS: PCP Internal Medicine Geriatric Medicine; Visit Provider Physician Assistant Surgical | DX: E66.01 Morbid (severe) obesity due to excess calories (principal); Z68.41 Body mass index [BMI] 40.0-44.9, adult | CPT/HCPCS: 99212 ==

== ENCOUNTER 2021-10-22 09:00 | Emergency (ER) | payer OTHER, SELFPAY ==
--- NOTE | 2021-10-22 | ECG_ITS ---
Test Reason : chest pain Blood Pressure : / mmHG Vent. Rate : 078 BPM Atrial Rate : 078 BPM P-R Int : 158 ms QRS Dur : 092 ms QT Int : 370 ms P-R-T Axes : 031 -04 -02 degrees QTc Int : 421 ms Normal sinus rhythm Minimal voltage criteria for LVH, may be normal variant ( R in aVL ) Borderline ECG When compared with ECG of 14-APR-2021 16:33, No significant change was found Referred By: Generic ED Physician Electronically Signed By:MINGO MCKNIGHT
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
[2021-10-22 09:06] VITALS: BP 111/60; BP 132/82; PULSE 79; PULSE 89; RESP 16; TEMP 36.9; O2SAT 98; BMI 41.4
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
[2021-10-22 09:45] LABS: Hematocrit 36.6 % (37.0-47.0); Hemoglobin 11.7 g/dl (12.0-16.0); Mean Corpuscular Hemoglobin 26.5 pg (27.0-33.0); Mean Corpuscular Volume 82.8 fL (80.0-98.0); Mean Platelet Volume 11.7 fL (9.4-12.3); Platelet Count 187 X10*3/uL (160-400); Red Blood Count 4.42 X10*6/uL (4.20-5.50); Red Cell Distribution Width 14.6 % (11.0-16.0); White Blood Count 5.4 X10*3/uL (4.8-10.8)
[2021-10-22 10:03] LABS: Glucose, Whole Blood 122 mg/dL (60-115)
[2021-10-22 10:04] LABS: Troponin-I High Sensitivity < 3.5 ng/L (<3.5-17.0)
[2021-10-22 10:10] LABS: Anion Gap 15 (12-20); Blood Urea Nitrogen 22 mg/dL (9-16); Calcium 9.3 mg/dL (8.4-10.2); Carbon Dioxide 25 mmol/L (22-29); Chloride 104 mmol/L (96-108); Creatinine Clr Calc Pharmacy 126.3; Estimated Glomerular Filt Rate > 60; Glucose Random 148 mg/dL (60-115); Potassium 4.2 mmol/L (3.3-5.1); Sodium 140 mmol/L (135-145)
[2021-10-22] MEDS: Acetaminophen 325 MG TABLET 975 MG PO (10:23)
[2021-10-22] MEDS: Diphth,Pertus(ACell),Tet Adult 0.5 ML SYRINGE IM (10:24)
[2021-10-22] MEDS: iohexoL 350 MG/ML 100 ML INFUS..BTL IV (10:54)
[2021-10-22 11:39] LABS: Prothrombin Time 11.2 SEC (10.0-13.1)
[2021-10-22] MEDS: Lidocaine 4 % Patch ADH..PATCH 1 PATCH TRANSDERMA (12:19)
--- NOTE | 2021-10-22 12:22 | PC.NURSE ---
per RPh. Ramirez at [facility], no history of any anticoagulation therapy in the last 2 years. MD cloud
[2021-10-22] MEDS: Cyclobenzaprine HCl 5 MG TABLET PO (12:24)
[2021-10-22] MEDS: Ketorolac Tromethamine 30 MG/ML VIAL 15 MG IVPUSH (12:24)
[2021-10-22 12:28] VITALS: BP 132/103; PULSE 67; RESP 16; TEMP 36.6; O2SAT 100
== END 2021-10-22 13:30 | disposition home or self-care (01) ==
PROVIDERS: Emergency Provider Student in an Organized Health Care Education/Training Program; PCP Internal Medicine Geriatric Medicine
DX: Z04.1 Encounter for examination and observation following transport accident (principal); M62.838 Other muscle spasm; M79.10 Myalgia, unspecified site; R51.9 Headache, unspecified
CPT/HCPCS: 36415; 70450; 71260; 72125; 74177; 80048; 82947; 84484; 85027; 85610; 90471; 90715; 93005; 96374; 99284; J1885; Q9967

== ENCOUNTER → 2021-11-19 11:12 | Outpatient (BNVA) | payer MEDICAID, SELFPAY | PROVIDERS: PCP Internal Medicine Geriatric Medicine; Visit Provider Internal Medicine | DX: J44.9 Chronic obstructive pulmonary disease, unspecified (principal); J98.4 Other disorders of lung; G47.33 Obstructive sleep apnea (adult) (pediatric); J30.9 Allergic rhinitis, unspecified; E66.01 Morbid (severe) obesity due to excess calories | CPT/HCPCS: 99212 ==

== ENCOUNTER 2021-11-26 09:56 | Outpatient (REF) | payer MEDICAID, SELFPAY ==
--- NOTE | ~2021-11-26 | XR_ITS ---
EXAMINATION: XR RIBS, LEFT CLINICAL INFORMATION: Left rib pain, pleurodynia COMPARISON: None TECHNIQUE: 3 views of the left ribs were obtained. FINDINGS: Lungs are clear. No consolidation, pneumothorax, or pleural effusion. The cardiomediastinal silhouette and pulmonary vasculature are normal. Osseous structures are unremarkable. Ribs are intact. No fractures are identified. XR/XR ribs LT min 3V w CXR1V IMPRESSION: Unremarkable chest and left rib exam.
== END 2021-11-26 09:57 | disposition home or self-care (01) ==
LOC: HO.XRAY 09:56
PROVIDERS: PCP Internal Medicine Geriatric Medicine; Visit Provider Dentist Pediatric Dentistry
DX: R07.81 Pleurodynia (principal)
CPT/HCPCS: 71101

== ENCOUNTER 2021-11-27 11:40 | Outpatient (REF) | payer MEDICAID, SELFPAY ==
[2021-11-27 13:00] LABS: Estimated Average Glucose 146 mg/dL; Hemoglobin A1c % 6.7 %
== END 2021-11-27 11:41 | disposition home or self-care (01) ==
LOC: HO.LAB 11:40
PROVIDERS: PCP Internal Medicine Geriatric Medicine; Visit Provider Physician Assistant Surgical
DX: E66.01 Morbid (severe) obesity due to excess calories (principal); I25.10 Atherosclerotic heart disease of native coronary artery without angina pectoris
CPT/HCPCS: 36415; 83036; 99212

== ENCOUNTER → 2022-01-28 11:03 | Outpatient (BNVA) | payer MEDICAID, SELFPAY | PROVIDERS: PCP Internal Medicine Geriatric Medicine; Visit Provider Internal Medicine | DX: J30.9 Allergic rhinitis, unspecified (principal); J44.9 Chronic obstructive pulmonary disease, unspecified; J98.4 Other disorders of lung; J99 Respiratory disorders in diseases classified elsewhere; E66.01 Morbid (severe) obesity due to excess calories; G47.34 Idiopathic sleep related nonobstructive alveolar hypoventilation; G47.33 Obstructive sleep apnea (adult) (pediatric); F11.10 Opioid abuse, uncomplicated; Z68.41 Body mass index [BMI] 40.0-44.9, adult; Z79.4 Long term (current) use of insulin; Z99.81 Dependence on supplemental oxygen | CPT/HCPCS: 99212 ==

== ENCOUNTER → 2022-03-24 09:09 | Outpatient (BNVA) | payer MEDICAID, SELFPAY | PROVIDERS: PCP Internal Medicine Geriatric Medicine; Referring Provider Internal Medicine Geriatric Medicine; Visit Provider Nurse Practitioner Family | DX: K59.04 Chronic idiopathic constipation (principal); K21.9 Gastro-esophageal reflux disease without esophagitis | CPT/HCPCS: 99212 ==

== ENCOUNTER → 2022-04-21 11:29 | Outpatient (BNVA) | payer MEDICAID, SELFPAY | PROVIDERS: PCP Internal Medicine Geriatric Medicine; Visit Provider Internal Medicine | DX: J44.9 Chronic obstructive pulmonary disease, unspecified (principal); J98.4 Other disorders of lung; J30.9 Allergic rhinitis, unspecified; G47.33 Obstructive sleep apnea (adult) (pediatric); G47.34 Idiopathic sleep related nonobstructive alveolar hypoventilation; E66.01 Morbid (severe) obesity due to excess calories; Z79.891 Long term (current) use of opiate analgesic; Z68.41 Body mass index [BMI] 40.0-44.9, adult | CPT/HCPCS: 99212 ==

== ENCOUNTER → 2022-05-05 09:43 | Outpatient (BNVA) | payer MEDICAID, SELFPAY | PROVIDERS: PCP Internal Medicine Geriatric Medicine; Visit Provider Nurse Practitioner Family | DX: K58.1 Irritable bowel syndrome with constipation (principal); K59.04 Chronic idiopathic constipation; K21.9 Gastro-esophageal reflux disease without esophagitis | CPT/HCPCS: 99212 ==

== ENCOUNTER 2022-06-16 13:13 | Outpatient (REF) | payer MEDICAID, SELFPAY | END 2022-06-16 13:14 | disposition home or self-care (01) | LOC: HO.XRAY 13:13 | PROVIDERS: PCP Internal Medicine Geriatric Medicine; Visit Provider Internal Medicine | DX: R05.9 Cough, unspecified (principal); J30.9 Allergic rhinitis, unspecified | CPT/HCPCS: 99212 ==

== ENCOUNTER 2022-06-22 10:28 | Outpatient (REF) | payer MEDICAID, SELFPAY ==
--- NOTE | ~2022-06-22 | XR_ITS ---
EXAMINATION: XR CHEST CLINICAL INFORMATION: Cough. COMPARISON: Chest with left RIBS 11/26/2021 TECHNIQUE: 2 views of the chest were obtained. FINDINGS: No significant abnormality is noted involving the heart, lungs, mediastinum, bony thorax or soft tissues. XR/XR chest 2V IMPRESSION: Unremarkable chest examination.
== END 2022-06-22 10:29 | disposition home or self-care (01) ==
LOC: HO.XRAY 10:28
PROVIDERS: Visit Provider Internal Medicine
DX: R05.9 Cough, unspecified (principal); J30.9 Allergic rhinitis, unspecified
CPT/HCPCS: 71046

== ENCOUNTER → 2022-07-08 13:11 | Outpatient (BNVA) | payer MEDICAID, SELFPAY | PROVIDERS: PCP Internal Medicine Geriatric Medicine; Visit Provider Internal Medicine | DX: J30.9 Allergic rhinitis, unspecified (principal); G47.33 Obstructive sleep apnea (adult) (pediatric); G47.34 Idiopathic sleep related nonobstructive alveolar hypoventilation; J44.9 Chronic obstructive pulmonary disease, unspecified; J98.4 Other disorders of lung; E66.01 Morbid (severe) obesity due to excess calories; Z68.41 Body mass index [BMI] 40.0-44.9, adult; Z79.899 Other long term (current) drug therapy | CPT/HCPCS: 99212 ==

== ENCOUNTER 2022-08-18 13:40 | Outpatient (AMB) | payer MEDICAID, SELFPAY ==
--- NOTE | 2022-08-18 13:58 | MHC.OFFVIS ---
Intake Vital Signs 08/18/22 13:59 Height 5 ft 3 in Weight 249 lb 1.957 oz BMI 44.1 BP 114/66 Blood Pressure Location Lt brachial Position Sitting Pulse 73 Intake Visit Reasons: 2 monthf ollow up Intake Note: Sarita presents in office as a est.patient for 2month f/u for [facility] PT CC:pt reports having epigastric pain pt denies any other GI issues Professor Of Surgery Required: Yes Professor Of Surgery Language: Danish Accompanied by: Self / Same As Patient Allergies penicillin G [Penicillin G] Allergy (Mild, Verified 08/18/22 13:58) SWELLING barium sulfate [ORAL CONTRAST] Allergy (Unknown, Verified 08/18/22 13:58) HIVES HPI 2 monthf ollow up HPI Details LAST VISIT: IBS (irritable bowel syndrome) Continue low FODMAP diet. Avoid dietary triggers. Use MiraLax as on as needed basis Chronic idiopathic constipation Use MiraLax on as needed basis. Linzess was never covered. Patient reports that she is moving her bowels daily or every other day. Patient states that she does not need anything to help her move her bowels better. GERD (gastroesophageal reflux disease) Patient was unable to get Nexium from pharmacy due to insurance coverage. I will change to pantoprazole. However if there will be an issue with insurance again we will order Nexium and patient will go to get that medication in [facility]. Daughter will call if patient is unable to get the medication. Discussed with patient dietary triggers and late night snacking. Staying upright for minimal 3 hours after meals discussed with patient. I will see patient in 2 months, sooner as needed basis. Patient is agreeable to this plan and verbalizes understanding of instructions. She was given the opportunity to ask questions and all questions answered. ? Thank you for allowing me to participate in her care Plan Medications New pantoprazole take one tablet half an hour before breakfast 40 mg PO DAILY 90 tabs 2RF K21.9 polyethylene glycol 3350 (Miralax) 17 grams PO DAILY 510 grams 2RF Changed From sucralfate 1 g PO BEDTIME 30 tabs 1RF R19.7 To sucralfate tomelo dos veces al sharron 1 tableta al mediodia y 1 a la hora de acostarse. 1 g PO BID 60 tabs 2RF R19.7 TODAY'S VISIT: Patient is here today for follow-up. Patient reports that she has postprandial epigastric discomfort and bloating. Patient states that she does not move her bowels every day. Reports abdominal cramping as well. Taking pantoprazole in the morning and sucralfate twice a day and continues to have dyspepsia without dysphagia or or odynophagia. Patient denies melena, hematochezia, unintentional weight loss or ribbon like stools. Patient denies any nausea or vomiting. Denies any other GI concerning symptoms. [facility] Medical History Allergic rhinitis Back pain Chronic idiopathic constipation COPD (chronic obstructive pulmonary disease) Cough Depression GERD (gastroesophageal reflux disease) Hyperlipidemia IBS (irritable bowel syndrome) Morbid obesity Nocturnal hypoxemia DRE (obstructive sleep apnea) Oxygen dependent Restrictive lung disease secondary to obesity Smoker Tubular adenoma Surgical History History of appendectomy History of esophagogastroduodenoscopy (EGD) Hx of carpal tunnel repair Hx of section Hx of colonoscopy Family History Mother Diabetes Heart muscle disorder caused by another medical condition Father Diabetes Epilepsy Sister No problems noted. Sister No problems noted. Sister No problems noted. Sister No problems noted. Sister No problems noted. Brother No problems noted. Brother No problems noted. Brother No problems noted. Brother No problems noted. Brother No problems noted. Brother No problems noted. Daughter No problems noted. Daughter No problems noted. Son No problems noted. Son No problems noted. Son No problems noted. Social History Alcohol intake: current Alcohol intake frequency: holidays/special occasions only Patient Tobacco Use Status: Former Tobacco user Substance Use Type: Opiates Review of Systems Const Denies weight gain and Denies weight loss ENT Reports no additional complaints, Denies dysphagia and Denies odynophagia Card Reports no additional complaints Resp Reports no additional complaints GI Reports abdominal pain (Epigastric), Denies belching, Denies melena, Reports bloating, Reports constipation (Occasional), Denies dysphagia, Denies excessive flatus, Denies dyspepsia, Reports heartburn, Denies diarrhea, Denies loose stools, Denies nausea, Denies odynophagia and Denies vomiting Musc Reports no additional complaints Neuro Reports no additional complaints Psych Reports no additional complaints Endo Reports no additional complaints Physical Exam Vital Signs: Last Vital Signs Pulse 73 08/18/22 13:59 BP 114/66 08/18/22 13:59 BMI result Body Mass Index 44.1 Const General: healthy appearing, no acute distress and well developed Nutritional Appearance: obese Orientation/consciousness: patient oriented x3 HEENT Head: Yes normal to inspection, Yes normocephalic and Yes atraumatic Face and sinus: Yes normal facial exam Mouth: Normal oral and palatal mucosa present Throat: Yes posterior oropharynx normal, Yes tonsils normal and Yes uvula midline Eyes General: appearance normal, both eyes and all related structures Neck Neck: Yes normal visual inspection, Yes full ROM and Yes trachea midline Thyroid: Thyroid normal Resp Effort & Inspection: normal respiratory effort, able to speak in complete sentences, no tracheal deviation and symmetric chest movement Auscultation: clear to auscultation bilaterally Cardio Rate: regular rate Heart sounds: S1 normal heart sound present and S2 normal heart sound present GI Inspection: Yes normal to inspection, No distended and Yes obesity Palpation (GI): Soft to palpation, not firm, nontender and No hepatosplenomegaly present Auscultation: normal bowel sounds General: Yes no CVA tenderness Back/Spine/Pelvis Back: no CVA tenderness Skin General skin exam: elasticity normal, turgor normal and dry skin Neuro General: patient oriented x3 Psych Appearance: grossly normal Mental Status: mental status grossly normal Speech and movement: Normal speech and movement present Affect: normal affect Assessment & Plan Assessment & Plan (1) IBS (irritable bowel syndrome): Code(s): K58.9 - Irritable bowel syndrome without diarrhea Qualifiers: Irritable bowel syndrome type: with constipation Qualified Code(s): K58.1 - Irritable bowel syndrome with constipation Plan: Low FODMAP diet discussed with patient. List of food recommended as well as list of food to avoid discussed with patient. (2) Chronic idiopathic constipation: Code(s): K59.04 - Chronic idiopathic constipation Plan: Patient reports constipation. Will start her on Linzess 145 mcg. Patient was also encouraged to increase fluid intake and activity to promote better bowel motility. (3) GERD (gastroesophageal reflux disease): Code(s): K21.9 - Gastro-esophageal reflux disease without esophagitis Qualifiers: Esophagitis presence: without esophagitis Qualified Code(s): K21.9 - Gastro-esophageal reflux disease without esophagitis Plan: Will change PPI to lansoprazole. Patient can continue sucralfate. Discussed with patient avoiding dietary triggers in late night snacking. Staying upright for minimum 3 hours after meals discussed with patient. I will see her in 4 weeks, sooner on as needed basis. Patient is agreeable to this plan and verbalizes understanding of instructions. She was given the opportunity to ask questions and all questions answered. Thank you for allowing me to participate in her care Medications: New linaclotide (Linzess) 145 mcg PO DAILY 30 caps 2RF lansoprazole Take every morning half an hour before breakfast 30 mg PO DAILY 30 caps 3RF K21.9 - Gastro-esophageal reflux disease without esophagitis Discontinued pantoprazole take one tablet half an hour before breakfast Discontinued Reason: Doctor's Order 40 mg PO DAILY 90 tabs 2RF K21.9 - Gastro-esophageal reflux disease without esophagitis Coding Level of Care Code Est Pt Level 3 (10360) Diagnoses IBS (irritable bowel syndrome) K58.1 Irritable bowel syndrome type: with constipation Chronic idiopathic constipation K59.04 GERD (gastroesophageal reflux disease) K21.9 Esophagitis presence: without esophagitis Time Spent (min) 30 Comment 20 minutes spent with patient and additional 10 minutes spent reviewing her records
[2022-08-18 13:59] VITALS: BP 114/66; PULSE 73; BMI 44.1
== END 2022-08-18 15:06 | disposition home or self-care (01) ==
PROVIDERS: Visit Provider Nurse Practitioner Family
DX: K58.1 Irritable bowel syndrome with constipation (principal); K59.04 Chronic idiopathic constipation; K21.9 Gastro-esophageal reflux disease without esophagitis
CPT/HCPCS: 99213

== ENCOUNTER → 2022-08-18 13:40 | Outpatient (BNVA) | payer MEDICAID, SELFPAY | PROVIDERS: Visit Provider Nurse Practitioner Family | DX: K58.1 Irritable bowel syndrome with constipation (principal); K21.9 Gastro-esophageal reflux disease without esophagitis; K59.04 Chronic idiopathic constipation | CPT/HCPCS: 99213 ==

== ENCOUNTER 2022-08-30 09:21 | Outpatient (REF) | payer MEDICAID, SELFPAY ==
--- NOTE | ~2022-08-30 | CT_ITS ---
EXAMINATION: CT ABDOMEN AND PELVIS WITHOUT CONTRAST CLINICAL INFORMATION: Painful micturition. COMPARISON: CT abdomen and pelvis dated 10/22/2021. TECHNIQUE: Multidetector volumetric imaging was performed from the superior aspect of the liver through the pubic symphysis. Sagittal and coronal reformatted images were obtained on the technologist's workstation. This CT examination was performed using dose optimization techniques as appropriate, variously including the following: *Automated exposure control *Adjustment of mA and/or kV according to patient size (this includes techniques or standardized protocols for targeted exams where dose is matched to indication/reason for exam; i.e. extremities or head) *Use of iterative reconstruction technique DLP: 751 mGy-cm FINDINGS: LUNG BASES: The visualized lung bases are unremarkable. LIVER, GALLBLADDER, AND BILIARY TREE: The liver is normal in size, shape and mildly diminished in attenuation. No focal hepatic lesion or biliary ductal dilatation is present. The gallbladder is unremarkable with no evidence of radiopaque gallstones, gallbladder wall thickening, or obvious pericholecystic inflammatory changes. PANCREAS: Unremarkable. SPLEEN: Unremarkable. ADRENAL GLANDS: Unremarkable. KIDNEYS AND URETERS: The kidneys are normal in size, shape, and attenuation. At the lower pole of the left kidney (3:40), a 3 mm nonobstructing calculus is seen. There is a right extrarenal pelvis, with stable transition at the ureteropelvic junction. No andrea hydronephrosis is noted. There is no left renal or bilateral ureteric calculus, and no ureterectasis is seen. No perinephric stranding. BLADDER: Unremarkable. GASTROINTESTINAL TRACT: The small and large bowel are unremarkable. No obstruction, free intraperitoneal air or abscess is seen. No significant diverticulosis or diverticulitis is seen. The vermiform appendix is not identified with certainty; however, there is no finding to suggest appendicitis. ABDOMINAL WALL: No significant hernia defect is noted. LYMPH NODES: Normal. 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 On the contrast-enhanced examination, this appeared thrombosed (6:32). There is mild bilateral iliac atherosclerotic calcification. No abdominal aortic aneurysm is seen. PELVIC VISCERA: Surgically absent. No pelvic mass, free fluid or lymphadenopathy is seen. OSSEOUS STRUCTURES: There is a stable mild T11 anterior wedge compression fracture. There is multi-level thoracolumbar degenerative disc disease and spondylosis. No acute or aggressive osseous abnormality is seen. CT/CT abdomen pelvis wo IV con IMPRESSION: 1. A 3 mm nonobstructing left renal calculus is seen. No further urinary calculus is seen, and there is no bilateral hydronephroureter. There is stable prominence of the left extrarenal pelvis, possibly related to a ureteropelvic junction stenosis. 2. There is hepatic steatosis. 3. There is a stable mild T11 anterior wedge compression fracture. No acute or aggressive osseous finding is noted. Fleischner guidelines were followed.
[2022-08-30 11:21] LABS: Creatinine Urine 39.19 mg/dL; Microalbum/Creatinine Ratio Ur 12.7 ug/mg cr
[2022-08-30 11:59] LABS: Alanine Aminotransferase 29 U/L (0-31); Alkaline Phosphatase 90 U/L (39-117); Anion Gap 16 (12-20); Aspartate Amino Transferase 25 U/L (5-31); Bilirubin Total 0.8 mg/dL (0.0-1.0); Blood Urea Nitrogen 13 mg/dL (9-16); Calcium 9.7 mg/dL (8.4-10.2); Carbon Dioxide 23 mmol/L (22-29); Chloride 104 mmol/L (96-108); Cholesterol 229 mg/dL; Estimated Glomerular Filt Rate > 60; Glucose Random 140 mg/dL (60-115); HDL Cholesterol 40 mg/dL; LDL Cholesterol Calculated 133 mg/dl; Potassium 4.5 mmol/L (3.3-5.1); Sodium 138 mmol/L (135-145); Total Protein 6.7 g/dL (6.5-8.0); Triglycerides 281 mg/dL
== END 2022-08-30 09:22 | disposition home or self-care (01) ==
LOC: HO.CT 09:21
PROVIDERS: Absent Provider Internal Medicine Geriatric Medicine; PCP Internal Medicine Geriatric Medicine; Visit Provider Emergency Medicine
DX: R30.9 Painful micturition, unspecified (principal); E66.9 Obesity, unspecified; E11.65 Type 2 diabetes mellitus with hyperglycemia
CPT/HCPCS: 36415; 74176; 80053; 80061; 82043

== ENCOUNTER 2022-09-14 17:04 | Outpatient (REF) | payer MEDICAID, SELFPAY | END 2022-09-14 17:05 | disposition home or self-care (01) | LOC: HO.HHCLNP 17:04 | PROVIDERS: Visit Provider Family Medicine | DX: R30.0 Dysuria (principal) | CPT/HCPCS: 87086; 87088; 87186 ==

== ENCOUNTER 2022-09-22 09:53 | Outpatient (AMB) | payer MEDICAID, SELFPAY ==
[2022-09-22 10:09] VITALS: BP 137/85; PULSE 62; BMI 43.0
--- NOTE | 2022-09-22 10:09 | MHC.OFFVIS ---
Intake Vital Signs 09/22/22 10:09 Height 5 ft 3 in Weight 242 lb 8.136 oz BMI 43.0 BP 137/85 Blood Pressure Location Lt brachial Position Sitting Pulse 62 Intake Visit Reasons: 4 weeks follow up Intake Note: Sarita presents in office as a est.patient for 4week f/u for [facility]. PT CC: pt reports having abdominal pain pt denies any other GI Issues Rn Psychiatric Required: No Accompanied by: CHIEF CONTROLLER Allergies penicillin G [Penicillin G] Allergy (Mild, Verified 09/22/22 10:11) SWELLING barium sulfate [ORAL CONTRAST] Allergy (Unknown, Verified 09/22/22 10:11) HIVES HPI 4 weeks follow up HPI Details LAST VISIT IBS (irritable bowel syndrome) Low FODMAP diet discussed with patient. List of food recommended as well as list of food to avoid discussed with patient. Chronic idiopathic constipation Patient reports constipation. Will start her on Linzess 145 mcg. Patient was also encouraged to increase fluid intake and activity to promote better bowel motility. GERD (gastroesophageal reflux disease) Will change PPI to lansoprazole. Patient can continue sucralfate. Discussed with patient avoiding dietary triggers in late night snacking. Staying upright for minimum 3 hours after meals discussed with patient. I will see her in 4 weeks, sooner on as needed basis. Patient is agreeable to this plan and verbalizes understanding of instructions. She was given the opportunity to ask questions and all questions answered. ? Thank you for allowing me to participate in her care Plan Medications New linaclotide (Linzess) 145 mcg PO DAILY 30 caps 2RF lansoprazole Take every morning half an hour before breakfast 30 mg PO DAILY 30 caps 3RF K21.9 Discontinued pantoprazole take one tablet half an hour before breakfast Discontinued Reason: Doctor's Order 40 mg PO DAILY 90 tabs 2RF K21.9 TODAY'S VISIT Patient is here today for follow-up. Patient reports that since she started taking Linzess she is doing better. Moving her bowels without any issues. Patient does report that postprandially she still has epigastric pain. Patient feels like she gets full very quickly. Because of the pain patient is not eating as much. Patient reports dyspepsia, without dysphagia or odynophagia. Patient denies any nausea or vomiting. Frequent postprandial abdominal bloating. Patient denies melena, hematochezia, unintentional weight loss or ribbon like stools. [facility] Medical History Allergic rhinitis Back pain Chronic idiopathic constipation COPD (chronic obstructive pulmonary disease) Cough Depression GERD (gastroesophageal reflux disease) Hyperlipidemia IBS (irritable bowel syndrome) Morbid obesity Nocturnal hypoxemia DRE (obstructive sleep apnea) Oxygen dependent Restrictive lung disease secondary to obesity Smoker Tubular adenoma Surgical History History of appendectomy History of esophagogastroduodenoscopy (EGD) Hx of carpal tunnel repair Hx of section Hx of colonoscopy Family History Mother Diabetes Heart muscle disorder caused by another medical condition Father Diabetes Epilepsy Sister No problems noted. Sister No problems noted. Sister No problems noted. Sister No problems noted. Sister No problems noted. Brother No problems noted. Brother No problems noted. Brother No problems noted. Brother No problems noted. Brother No problems noted. Brother No problems noted. Daughter No problems noted. Daughter No problems noted. Son No problems noted. Son No problems noted. Son No problems noted. Social History Alcohol intake: current Alcohol intake frequency: holidays/special occasions only Patient Tobacco Use Status: Former Tobacco user Substance Use Type: Opiates Review of Systems Const Denies weight gain and Denies weight loss ENT Reports no additional complaints, Denies dysphagia and Denies odynophagia Card Reports no additional complaints Resp Reports no additional complaints GI Reports abdominal pain (Epigastric burning), Denies belching, Denies melena, Reports bloating, Denies change in bowel habits, Denies dysphagia, Denies excessive flatus, Denies dyspepsia, Reports heartburn, Denies diarrhea, Denies loose stools, Denies nausea, Denies odynophagia and Denies vomiting Reports no additional complaints Musc Reports no additional complaints Neuro Reports no additional complaints Psych Reports no additional complaints Endo Reports no additional complaints Physical Exam Vital Signs: Last Vital Signs Pulse 62 09/22/22 10:09 BP 137/85 09/22/22 10:09 BMI result Body Mass Index 43.0 Const General: healthy appearing, no acute distress and well developed Nutritional Appearance: obese Orientation/consciousness: patient oriented x3 HEENT Head: Yes normal to inspection, Yes normocephalic and Yes atraumatic Face and sinus: Yes normal facial exam Mouth: Normal oral and palatal mucosa present Throat: Yes posterior oropharynx normal, Yes tonsils normal and Yes uvula midline Eyes General: appearance normal, both eyes and all related structures Neck Neck: Yes normal visual inspection, Yes full ROM and Yes trachea midline Thyroid: Thyroid normal Resp Effort & Inspection: normal respiratory effort, able to speak in complete sentences, no tracheal deviation and symmetric chest movement Auscultation: clear to auscultation bilaterally Cardio Rate: regular rate Heart sounds: S1 normal heart sound present and S2 normal heart sound present GI Inspection: Yes normal to inspection, No distended and Yes obesity Palpation (GI): Soft to palpation, not firm, nontender and No hepatosplenomegaly present Auscultation: normal bowel sounds General: Yes no CVA tenderness Back/Spine/Pelvis Back: no CVA tenderness Skin General skin exam: elasticity normal, turgor normal and dry skin Neuro General: patient oriented x3 Psych Appearance: grossly normal Mental Status: mental status grossly normal Speech and movement: Normal speech and movement present Assessment & Plan Assessment & Plan (1) GERD (gastroesophageal reflux disease): Code(s): K21.9 - Gastro-esophageal reflux disease without esophagitis Qualifiers: Esophagitis presence: without esophagitis Qualified Code(s): K21.9 - Gastro-esophageal reflux disease without esophagitis Plan: Continue lansoprazole. Discussed with patient avoiding dietary triggers and late night snacking. Staying upright for minimal 3 hours after meals discussed with patient. (2) Epigastric abdominal pain: Code(s): R10.13 - Epigastric pain Plan: Patient reports epigastric discomfort postprandially. Feeling of fullness. Patient will be sent for gastric emptying study. Patient will be sent for upper endoscopy to rule out gastritis, esophagitis, gastric or peptic ulcers, Franklin's, H pylori (3) Constipation: Code(s): K59.00 - Constipation, unspecified Qualifiers: Constipation type: unspecified constipation type Qualified Code(s): K59.00 - Constipation, unspecified Plan: Continue Linzess daily. Patient was encouraged to increase fluid intake and activity to promote better bowel motility. I will see her after upper endoscopy, sooner on as needed basis. Patient is agreeable to this plan and verbalizes understanding of instructions. She was given the opportunity to ask questions and all questions answered. Thank you for allowing me to participate in her care Orders: Orders NM gastric emptying study 09/22/22 K21.9 - Gastro-esophageal reflux disease without esophagitis, R10.13 - Epigastric pain Coding Level of Care Code Est Pt Level 4 (22775) Diagnoses GERD (gastroesophageal reflux disease) K21.9 Esophagitis presence: without esophagitis Epigastric abdominal pain R10.13 Constipation K59.00 Constipation type: unspecified constipation type Time Spent (min) 35 Comment 20 minutes spent with patient and additional 15 minutes spent reviewing her records
== END 2022-09-22 11:21 | disposition home or self-care (01) ==
PROVIDERS: PCP Internal Medicine Geriatric Medicine; Visit Provider Nurse Practitioner Family
DX: K21.9 Gastro-esophageal reflux disease without esophagitis (principal); R10.13 Epigastric pain; K59.00 Constipation, unspecified
CPT/HCPCS: 99214

== ENCOUNTER → 2022-09-22 09:53 | Outpatient (BNVA) | payer MEDICAID, SELFPAY | PROVIDERS: PCP Internal Medicine Geriatric Medicine; Visit Provider Nurse Practitioner Family | DX: K21.9 Gastro-esophageal reflux disease without esophagitis (principal); R10.13 Epigastric pain; K59.00 Constipation, unspecified | CPT/HCPCS: 99214 ==

== ENCOUNTER 2022-09-29 18:56 | Outpatient (REF) | payer MEDICAID, SELFPAY | END 2022-09-29 18:57 | disposition home or self-care (01) | LOC: HO.HHCLNP 18:56 | PROVIDERS: Visit Provider Registered Nurse | DX: N20.0 Calculus of kidney (principal) | CPT/HCPCS: 87086 ==

== ENCOUNTER 2022-09-30 14:42 | Outpatient (REF) | payer MEDICAID, SELFPAY ==
--- NOTE | ~2022-09-30 | US_ITS ---
EXAMINATION: US RETROPERITONEAL LIMITED (RENAL ONLY) CLINICAL INFORMATION: Renal calculus. COMPARISON: CT abdomen/pelvis 08/30/2022 TECHNIQUE: Real-time imaging of the kidneys. FINDINGS: RIGHT KIDNEY: 14.6 x 5.6 x 6.8 cm (SAG x AP x TRV). The kidney is normal in size, contour, and echogenicity. Renal cortical thickness is normal. No calculi or focal parenchymal lesions. Pelviectasis. LEFT KIDNEY: 13.9 x 5.8 x 4.5 cm (SAG x AP x TRV). The kidney is normal in size, contour, and echogenicity. Renal cortical thickness is normal. 5 mm lower pole nonobstructing calculus. Pelviectasis. US/US renal BI IMPRESSION: 5 mm nonobstructing left renal calculus. Bilateral pelviectasis versus extrarenal pelves.
== END 2022-09-30 14:43 | disposition home or self-care (01) ==
LOC: HO.US 14:42
PROVIDERS: PCP Internal Medicine Geriatric Medicine; Visit Provider Registered Nurse
DX: N20.0 Calculus of kidney (principal)
CPT/HCPCS: 76775

== ENCOUNTER 2022-10-04 18:03 | Outpatient (REF) | payer MEDICAID, SELFPAY | END 2022-10-04 18:04 | disposition home or self-care (01) | LOC: HO.HHCLNP 18:03 | PROVIDERS: Visit Provider Internal Medicine Geriatric Medicine | DX: M54.50 Low back pain, unspecified (principal) | CPT/HCPCS: 87086 ==

== ENCOUNTER 2022-10-29 10:46 | Outpatient (REF) | payer MEDICAID, SELFPAY ==
[2022-10-29 13:55] LABS: Anion Gap 12 (12-20); Blood Urea Nitrogen 13 mg/dL (9-16); Calcium 9.2 mg/dL (8.4-10.2); Carbon Dioxide 26 mmol/L (22-29); Chloride 101 mmol/L (96-108); Estimated Glomerular Filt Rate > 60; Glucose Random 207 mg/dL (60-115); Potassium 4.3 mmol/L (3.3-5.1); Sodium 135 mmol/L (135-145)
== END 2022-10-29 10:47 | disposition home or self-care (01) ==
LOC: HO.HHCL 10:46
PROVIDERS: Visit Provider Internal Medicine Geriatric Medicine
DX: E11.69 Type 2 diabetes mellitus with other specified complication (principal); E66.9 Obesity, unspecified; M54.16 Radiculopathy, lumbar region; J44.1 Chronic obstructive pulmonary disease with (acute) exacerbation; I10 Essential (primary) hypertension
CPT/HCPCS: 36415; 80048

== ENCOUNTER 2022-11-08 17:50 | Outpatient (REF) | payer MEDICAID, SELFPAY | END 2022-11-08 17:51 | disposition home or self-care (01) | LOC: HO.HHCLNP 17:50 | PROVIDERS: Visit Provider Emergency Medicine | DX: N23 Unspecified renal colic (principal) | CPT/HCPCS: 87086 ==

== ENCOUNTER 2022-11-09 11:35 | Day surgery (SDC) | payer MEDICAID, SELFPAY ==
[2022-11-05 10:23] VITALS: BMI 44.3
--- NOTE | 2022-11-08 11:59 | HO.ANESPROP2 ---
Documented by User: Charisma Bennett NP 11/08/22 12:05 HPI - Anesthesia Eval Consult details Narrative: 57yo F for Upper Endoscopy O2 dependant COPD/RLD PMFSH Active Problems Active Problems: All Active Problems (Updated 07/08/22 @ 13:39 by Caryl Churchill MD) Cough (Acute) Tubular adenoma (Acute) Tenderness of back (Acute) Tenderness (Acute) Kidney, malrotation (Acute) Insulin dependent type 2 diabetes mellitus (Acute) Coronary artery disease (Acute) Bulimia nervosa in partial remission (Acute) Allergic rhinitis (Acute) Chronic idiopathic constipation (Acute) IBS (irritable bowel syndrome) (Acute) Back pain (Acute) GERD (gastroesophageal reflux disease) (Acute) Hyperlipidemia (Acute) Depression (Acute) Restrictive lung disease secondary to obesity (Acute) Smoker (Acute) COPD (chronic obstructive pulmonary disease) (Acute) Nocturnal hypoxemia (Acute) DRE (obstructive sleep apnea) (Acute) Morbid obesity (Acute) Past Medical History Medical History Cough Tubular adenoma Oxygen dependent Allergic rhinitis Chronic idiopathic constipation IBS (irritable bowel syndrome) Back pain GERD (gastroesophageal reflux disease) Hyperlipidemia Depression Restrictive lung disease secondary to obesity Smoker COPD (chronic obstructive pulmonary disease) Nocturnal hypoxemia DRE (obstructive sleep apnea) Morbid obesity Family History Family History Mother Diabetes Heart muscle disorder caused by another medical condition Father Diabetes Epilepsy Sister No problems noted. Sister No problems noted. Sister No problems noted. Sister No problems noted. Sister No problems noted. Brother No problems noted. Brother No problems noted. Brother No problems noted. Brother No problems noted. Brother No problems noted. Brother No problems noted. Daughter No problems noted. Daughter No problems noted. Son No problems noted. Son No problems noted. Son No problems noted. Family history of problems with anesthesia: No Surgical History Surgical History Hx of colonoscopy History of esophagogastroduodenoscopy (EGD) Hx of section Hx of carpal tunnel repair History of appendectomy History of Problems with Anesthesia: No Social History Social History Alcohol intake: current Alcohol intake frequency: holidays/special occasions only Patient Tobacco Use Status: Former Tobacco user Quit Date: 3 weeks with chantix Use of substances other than those prescribed or required for medical reasons: Yes Substance Use Type: Opiates Are you DNR?: No Advance Directives: No Advance Directives Information Provided: Yes Meds Allergies Allergy/AdvReac Type Severity Reaction Status Date / Time penicillin G [Penicillin G] Allergy Mild SWELLING Verified 09/22/22 10:11 barium sulfate Allergy Unknown HIVES Verified 09/22/22 10:11 [ORAL CONTRAST] Home Medications Medication Instructions Recorded Confirmed Last Taken Type albuterol sulfate 90 mcg/actuation 2 puff inhalation Q6H PRN 02/13/20 11/27/21 Unknown History aerosol inhaler (ProAir HFA) montelukast 10 mg tablet 10 mg PO BEDTIME 02/13/20 11/27/21 Unknown History (Singulair) simvastatin 20 mg tablet 20 mg PO BEDTIME 02/13/20 11/27/21 Unknown History alcohol swabs (Alcohol Prep Pads) pad topical BID 12/05/20 11/27/21 Unknown History dulaglutide 0.75 mg/0.5 mL mg subcut QWEEK 12/05/20 11/27/21 Unknown History subcutaneous pen injector (Trulicity) insulin lispro 200 unit/mL (3 mL) unit subcut 12/05/20 11/27/21 Unknown History subcutaneous pen (Humalog KwikPen U-200 Insulin) oxycodone 10 mg tablet 10 mg PO Q12H PRN 12/05/20 11/27/21 Unknown History paroxetine HCl 40 mg tablet 40 mg PO BEDTIME 12/05/20 11/27/21 Unknown History pen needle, diabetic 32 gauge x #50 ea 12/05/20 11/27/21 Unknown History (Pentips) nortriptyline 10 mg capsule 10 mg PO BEDTIME 05/21/21 11/27/21 Unknown History insulin glargine 100 unit/mL (3 28 unit subcut DAILY 05/26/21 11/27/21 Unknown History mL) subcutaneous pen (Lantus Solostar U-100 Insulin) multivitamin (One Daily 1 tab PO QAM 05/26/21 11/27/21 Unknown History Multivitamin tablet) albuterol sulfate 2.5 mg/3 mL 2.5 mg inhalation Q4-6H PRN 01/28/22 Unknown History (0.083 %) solution for nebulization buspirone 15 mg tablet 15 mg PO BID 04/21/22 Unknown History celecoxib 200 mg capsule (Celebrex) 200 mg PO DAILY 04/21/22 Unknown History cetirizine 10 mg tablet 10 mg PO DAILY PRN 04/21/22 Unknown History cyclobenzaprine 5 mg tablet 10 mg PO TID PRN muscle spasm 04/21/22 Unknown History gabapentin 600 mg tablet 300 mg PO TID 04/21/22 Unknown History haloperidol 1 mg tablet 1 mg PO BEDTIME 04/21/22 Unknown History ketorolac 30 mg/mL (1 mL) 30 mg IM DAILY PRN 04/21/22 Unknown History injection solution lidocaine 5 % topical patch 1 patch topical DAILY 04/21/22 Unknown History meloxicam 15 mg tablet 15 mg PO DAILY 04/21/22 Unknown History metoprolol succinate 25 mg 25 mg PO DAILY 04/21/22 Unknown History tablet,extended release 24 hr oxcarbazepine 300 mg tablet 450 mg PO 04/21/22 Unknown History sertraline 100 mg tablet 100 mg PO DAILY 04/21/22 Unknown History clonidine HCl 0.1 mg tablet 0.1 mg PO BEDTIME 07/08/22 Unknown History dulaglutide 1.5 mg/0.5 mL mg subcut QWEEK 07/08/22 Unknown History [facility] Exam Exam Date and Time: November 08, 2022 1159 Height,Weight and Vital Signs: Height 5 ft 2 in Weight 109.769 kg Pertinent Lab Results Pertinent Lab Results: Laboratory Tests 10/29/22 10:52 Sodium 135 Potassium 4.3 Chloride 101 Carbon Dioxide 26 BUN 13 Creatinine 0.62 Assessment and Plan Assessment Anesthesia Assessment: Chart Reviewed Final Anesthetic Review Family History of Problems with Anesthesia: No History of Problems with Anesthesia: No Documented by User: Rosa Abebe MD 11/09/22 12:50 PMFSH Active Problems Active Problems: All Active Problems (Updated 11/09/22 @ 12:10 by Rosa Abebe MD) Cough (Acute) Tubular adenoma (Acute) Tenderness of back (Acute) Tenderness (Acute) Kidney, malrotation (Acute) Insulin dependent type 2 diabetes mellitus (Acute) Coronary artery disease (Acute) Bulimia nervosa in partial remission (Acute) Allergic rhinitis (Acute) Chronic idiopathic constipation (Acute) IBS (irritable bowel syndrome) (Acute) Back pain (Acute) GERD (gastroesophageal reflux disease) (Acute) Hyperlipidemia (Acute) Depression (Acute) Restrictive lung disease secondary to obesity (Acute) Smoker (Acute) COPD (chronic obstructive pulmonary disease) (Acute)- does not use inhalers regularly Nocturnal hypoxemia (Acute) DRE (obstructive sleep apnea) (Acute)- not using CPAP machine. Claustrophobic Morbid obesity (Acute) BMI 44.1 On home O2- 2L @ night Chest pain last week. Was seen in [facility] ED 08/2022 with flank, chest pain and headache. EKG normal- no further w/u done. Denies CP today Past Medical History Medical History Cough Tubular adenoma Oxygen dependent Allergic rhinitis Chronic idiopathic constipation IBS (irritable bowel syndrome) Back pain GERD (gastroesophageal reflux disease) Hyperlipidemia Depression Restrictive lung disease secondary to obesity Smoker COPD (chronic obstructive pulmonary disease) Nocturnal hypoxemia DRE (obstructive sleep apnea) Morbid obesity Family History Family History Mother Diabetes Heart muscle disorder caused by another medical condition Father Diabetes Epilepsy Sister No problems noted. Sister No problems noted. Sister No problems noted. Sister No problems noted. Sister No problems noted. Brother No problems noted. Brother No problems noted. Brother No problems noted. Brother No problems noted. Brother No problems noted. Brother No problems noted. Daughter No problems noted. Daughter No problems noted. Son No problems noted. Son No problems noted. Son No problems noted. Surgical History Surgical History Hx of colonoscopy History of esophagogastroduodenoscopy (EGD) Hx of section Hx of carpal tunnel repair History of appendectomy Social History Social History Alcohol intake: current Alcohol intake frequency: holidays/special occasions only Patient Tobacco Use Status: Former Tobacco user Quit Date: 3 weeks with chantix Use of substances other than those prescribed or required for medical reasons: Yes Substance Use Type: Opiates Are you DNR?: No Advance Directives: No Advance Directives Information Provided: Yes Meds Allergies Allergy/AdvReac Type Severity Reaction Status Date / Time penicillin G [Penicillin G] Allergy Mild SWELLING Verified 09/22/22 10:11 barium sulfate Allergy Unknown HIVES Verified 09/22/22 10:11 [ORAL CONTRAST] Home Medications Medication Instructions Recorded Confirmed Last Taken Type albuterol sulfate 90 mcg/actuation 2 puff inhalation Q6H PRN 02/13/20 11/27/21 Unknown History aerosol inhaler (ProAir HFA) montelukast 10 mg tablet 10 mg PO BEDTIME 02/13/20 11/27/21 Unknown History (Singulair) simvastatin 20 mg tablet 20 mg PO BEDTIME 02/13/20 11/27/21 Unknown History alcohol swabs (Alcohol Prep Pads) pad topical BID 12/05/20 11/27/21 Unknown History dulaglutide 0.75 mg/0.5 mL mg subcut QWEEK 12/05/20 11/27/21 Unknown History subcutaneous pen injector (Trulicity) insulin lispro 200 unit/mL (3 mL) unit subcut 12/05/20 11/27/21 Unknown History subcutaneous pen (Humalog KwikPen U-200 Insulin) oxycodone 10 mg tablet 10 mg PO Q12H PRN 12/05/20 11/27/21 Unknown History paroxetine HCl 40 mg tablet 40 mg PO BEDTIME 12/05/20 11/27/21 Unknown History pen needle, diabetic 32 gauge x #50 ea 12/05/20 11/27/21 Unknown History (Pentips) nortriptyline 10 mg capsule 10 mg PO BEDTIME 05/21/21 11/27/21 Unknown History insulin glargine 100 unit/mL (3 28 unit subcut DAILY 05/26/21 11/27/21 Unknown History mL) subcutaneous pen (Lantus Solostar U-100 Insulin) multivitamin (One Daily 1 tab PO QAM 05/26/21 11/27/21 Unknown History Multivitamin tablet) albuterol sulfate 2.5 mg/3 mL 2.5 mg inhalation Q4-6H PRN 01/28/22 Unknown History (0.083 %) solution for nebulization buspirone 15 mg tablet 15 mg PO BID 04/21/22 Unknown History celecoxib 200 mg capsule (Celebrex) 200 mg PO DAILY 04/21/22 Unknown History cetirizine 10 mg tablet 10 mg PO DAILY PRN 04/21/22 Unknown History cyclobenzaprine 5 mg tablet 10 mg PO TID PRN muscle spasm 04/21/22 Unknown History gabapentin 600 mg tablet 300 mg PO TID 04/21/22 Unknown History haloperidol 1 mg tablet 1 mg PO BEDTIME 04/21/22 Unknown History ketorolac 30 mg/mL (1 mL) 30 mg IM DAILY PRN 04/21/22 Unknown History injection solution lidocaine 5 % topical patch 1 patch topical DAILY 04/21/22 Unknown History meloxicam 15 mg tablet 15 mg PO DAILY 04/21/22 Unknown History metoprolol succinate 25 mg 25 mg PO DAILY 04/21/22 Unknown History tablet,extended release 24 hr oxcarbazepine 300 mg tablet 450 mg PO 04/21/22 Unknown History sertraline 100 mg tablet 100 mg PO DAILY 04/21/22 Unknown History clonidine HCl 0.1 mg tablet 0.1 mg PO BEDTIME 07/08/22 Unknown History dulaglutide 1.5 mg/0.5 mL mg subcut QWEEK 07/08/22 Unknown History subcutaneous pen injector (Trulicity) Exam Height,Weight and Vital Signs: Height 5 ft 2 in Weight 109.769 kg Vital Signs Temp Pulse Resp BP Pulse Ox O2 Del Method 11/09/22 12:31 85 18 11/09/22 11:59 97.6 F 69 18 114/67 96 Room Air Airway Mallampati Class: II TM Dist: >3cm Neck ROM: Full Loose/Missing/Broken Teeth: Yes (Only 5 teeth top. Denies broken or loose teeth) Heart: RRR+ ?systolic murmur Lungs: Audible wheezes Other: Still wheezy post respiratory treatment. Sats 100% Assessment and Plan Final Anesthetic Review NPO: Yes ASA Class: IV Final Preanesthetic Review: No Changes in Pt Med Stat, Meds/Allgs Chart Reviewed, Consent Obtained/Reviewed and Anes Risks/Benef Reviewed Patient Risk: High Procedure Risk: Low Assessment/Block/Sedation in SS: Assess/Block/Sedation-SS Anesthetic Plan Anesthetic Plan: MAC: Disposition: Standard PACU
[2022-11-09] VITALS (7 sets, daily range): BP systolic 100–119; BP diastolic 51–81; PULSE 69–95; RESP 16–28; TEMP 36.1–36.4; O2SAT 96–98; BMI 44.1
[2022-11-09 12:01] LABS: Glucose, Whole Blood 117 mg/dL (60-115)
--- NOTE | 2022-11-09 12:15 | MHC.SHP ---
Pre-Procedural Eval Section A Date of Service: 11/09/22 Section B Chief Complaint: Epigastric pain,reflux disease Relevant Family History (Specify if Yes): No Relevant Social History: Other (specify) (thc use) Present Medications: see Short Stay Collaborative assessment Medical History: Significant History (Cough Tubular adenoma Oxygen dependent Allergic rhinitis Chronic idiopathic constipation IBS (irritable bowel syndrome) Back pain GERD (gastroesophageal reflux disease) Hyperlipidemia Depression Restrictive lung disease secondary to obesity Smoker COPD (chronic obstructive pulmonary disease) [place]) History of Previous Operations: Relevant previous surgery/procedure and date(s) (Hx of colonoscopy History of esophagogastroduodenoscopy (EGD) Hx of section Hx of carpal tunnel repair History of appendectomy) Allergies: Allergies Allergy/AdvReac Type Severity Reaction Status Date / Time penicillin G [Penicillin G] Allergy Mild SWELLING Verified 09/22/22 10:11 barium sulfate Allergy Unknown HIVES Verified 09/22/22 10:11 [ORAL CONTRAST] Review of Systems Sugical H&P ROS: Negative: Constitution, Cardiovascular, Respiratory, Neurological, Psychiatric, Hem-Onc, Allergic/Immunologic, Gastrointestinal, Genitourinary, Musculoskeletal, Integumentary, Endocrine and Eyes/Ears/Nose/Throat Exam Surgical H&P Exam: Normal: HEENT, Normal: Heart, Normal: Lungs, Normal: Extremities, Normal: Abdomen, Normal: Skin and Normal: Neurological Plan Diagnosis/Plan: Unchanged I have reviewed the history and physical and performed a pertinent physical examination on my patient. No changes have occurred unless specified. Time Spent With Patient Time: Total time managing care of this patient today ____ minutes.
[2022-11-09] MEDS: Albuterol Sulfate (0.083%) 2.5 MG/3 ML VIAL.NEB INHALE (12:28)
[2022-11-09] MEDS: Lactated Ringers 1,000 ML 100 ML IVCONT (12:32)
--- NOTE | 2022-11-09 13:05 | W.PM.OPN ---
Operative Note Operative Note Date of Service: 11/09/22 Narrative: Procedure Description: EGD Indication: epigastric pain Anesthesia: MAC FLEXIBLE TRANSORAL UPPER GASTROINTESTINAL ENDOSCOPY UPPER ENDOSCOPY Consent: Indications for the procedure and potential complications of bleeding, perforation, reaction to medications and missed diagnosis were discussed with the patient and informed consent was obtained. Instrument: Olympus GIF H 190 J mid size upper endoscope Monitoring: Vital signs and clinical assessment, continuous EKG monitoring, Pulse oximetry, Carbon Dioxide monitoring and blood pressure monitoring were done throughout the procedure. Procedure: The patient was placed in the left lateral decubitis position and pre-procedure medications were administered and a bite block was placed. The endoscope was inserted into the mouth and advanced under direct vision to stomach. A careful inspection was made as the upper endoscope was withdrawn; Findings and interventions are described below. Findings: Larynx:normal Esophagus: GE junction at 38 cm, diaphragm hiatus at 38 cm, no varices or esophagitis. Stomach: Full of food, unable to see mucosa Duodenum: Not reached Intervention: None Impression/Findings: retained food, possible gastroparesis PLAN: Reschedule EGD and stay on clears day before, might have gastroparesis vs gastric outlet obstruction
[2022-11-09] MEDS: ondansetron HCL 4 MG/2 ML VIAL IVPUSH (13:28)
[2022-11-09] MEDS: Acetaminophen 325 MG TABLET 975 MG PO (14:22)
[2022-11-09] MEDS: Mag&Al/Sim/Diphenhyd/Lidocaine 10 ML ORAL.SUSP PO (14:23)
== END 2022-11-09 15:27 | disposition home or self-care (01) ==
PROVIDERS: PCP Internal Medicine Geriatric Medicine; Visit Provider Internal Medicine Gastroenterology
PROC: 0DJ08ZZ Inspection of Upper Intestinal Tract, Via Natural or Artificial Opening Endoscopic (ICD-10-PCS; CPT 43235; principal; 2022-11-09 13:50)
DX: R10.13 Epigastric pain (principal); K21.9 Gastro-esophageal reflux disease without esophagitis; K44.9 Diaphragmatic hernia without obstruction or gangrene; T18.2XXA Foreign body in stomach, initial encounter; J44.9 Chronic obstructive pulmonary disease, unspecified; J98.4 Other disorders of lung; E66.01 Morbid (severe) obesity due to excess calories; Z68.41 Body mass index [BMI] 40.0-44.9, adult; E78.5 Hyperlipidemia, unspecified; J30.9 Allergic rhinitis, unspecified; G47.33 Obstructive sleep apnea (adult) (pediatric); E11.9 Type 2 diabetes mellitus without complications; Z99.81 Dependence on supplemental oxygen; Z79.4 Long term (current) use of insulin; Z79.899 Other long term (current) drug therapy; Z88.0 Allergy status to penicillin; Z91.041 Radiographic dye allergy status; F17.210 Nicotine dependence, cigarettes, uncomplicated
CPT/HCPCS: 43235; 82947; 94640; J2405

== ENCOUNTER → 2022-11-09 11:35 | Outpatient (BNV) | payer MEDICAID, SELFPAY | PROVIDERS: PCP Internal Medicine Geriatric Medicine; Visit Provider Internal Medicine Gastroenterology | DX: R10.13 Epigastric pain (principal); Z91.199 Patient's noncompliance with other medical treatment and regimen due to unspecified reason | CPT/HCPCS: 43235 ==

== ENCOUNTER 2022-11-15 11:50 | Outpatient (REF) | payer MEDICAID, SELFPAY ==
[2022-11-15 13:58] LABS: Anion Gap 13 (12-20); Blood Urea Nitrogen 13 mg/dL (9-16); Calcium 9.9 mg/dL (8.4-10.2); Carbon Dioxide 26 mmol/L (22-29); Chloride 104 mmol/L (96-108); Estimated Glomerular Filt Rate > 60; Glucose Random 98 mg/dL (60-115); Sodium 139 mmol/L (135-145)
[2022-11-15 17:57] LABS: Appearance Urine Clear; Color Urine Yellow; Glucose Urine UA Negative (Negative); Leukocyte Esterase Urine Large (3+) (Negative); Nitrite Urine Negative (Negative); Specific Gravity - Urine 1.015 (1.005-1.025); UMIC TRIGGER UACC YES; Urine Blood Negative (Negative); Urine Ketones Negative (Negative); Urine Protein Negative (Neg-Trace)
[2022-11-15 18:02] LABS: Bacteria Urine Trace (None Seen); Hyaline Casts Urine 0-2 /LPF (0-2); RBC Urine 0-2 /HPF (0-2); UACC Culture Trigger YES
== END 2022-11-15 11:51 | disposition home or self-care (01) ==
LOC: HO.HHCL 11:50
PROVIDERS: Visit Provider Internal Medicine Geriatric Medicine
DX: R30.9 Painful micturition, unspecified (principal); E11.69 Type 2 diabetes mellitus with other specified complication; E66.9 Obesity, unspecified
CPT/HCPCS: 36415; 80048; 81001; 87086

== ENCOUNTER 2022-11-16 16:13 | Outpatient (REF) | payer MEDICAID, SELFPAY ==
[2022-11-23 10:17] LABS: Codeine, Ur NEGATIVE
[2022-11-23 10:18] LABS: Hydrocodone, Ur NEGATIVE; Hydromorphone, Ur NEGATIVE; Morphine, Ur NEGATIVE; Norhydrocodone, Ur NEGATIVE; Noroxycodone, Ur NEGATIVE; Oxycodone, Ur NEGATIVE; Oxymorphone, Ur NEGATIVE
== END 2022-11-16 16:14 | disposition home or self-care (01) ==
LOC: HO.HHCLNP 16:13
PROVIDERS: Visit Provider Internal Medicine Geriatric Medicine
DX: M54.9 Dorsalgia, unspecified (principal); G89.29 Other chronic pain
CPT/HCPCS: 80365; G0480

== ENCOUNTER 2022-11-23 10:52 | Outpatient (AMB) | payer MEDICAID, SELFPAY ==
--- NOTE | 2022-11-23 10:58 | MHC.OFFVIS ---
Intake Vital Signs 11/23/22 11:01 Height 5 ft 2 in Weight 246 lb 14.684 oz BMI 45.2 BP 125/59 L Blood Pressure Location Rt brachial Position Sitting Pulse 68 Intake Visit Reasons: S/P EGD; Dr. Cárdenas Intake Note: Patient presents to in office visit today in post op s/p EGD. The patient underwent EGD on 11/09/[address] Cárdenas. CC: Patient reports she always has abdominal pain but she believes it is because she has ulcers in her stomach. She states that she was scheduled for repeat EGD on 01/12/23. Nursing Informatics Clinical Analyst Required: Yes Accompanied by: Daughter Allergies penicillin G [Penicillin G] Allergy (Mild, Verified 11/23/22 11:03) SWELLING barium sulfate [ORAL CONTRAST] Allergy (Unknown, Verified 11/23/22 11:03) HIVES HPI S/P EGD; Dr. Cárdenas HPI Details LAST VISIT GERD (gastroesophageal reflux disease) Continue lansoprazole. Discussed with patient avoiding dietary triggers and late night snacking. Staying upright for minimal 3 hours after meals discussed with patient. Epigastric abdominal pain Patient reports epigastric discomfort postprandially. Feeling of fullness. Patient will be sent for gastric emptying study. Patient will be sent for upper endoscopy to rule out gastritis, esophagitis, gastric or peptic ulcers, Franklin's, H pylori Constipation Continue Linzess daily. Patient was encouraged to increase fluid intake and activity to promote better bowel motility. I will see her after upper endoscopy, sooner on as needed basis. Patient is agreeable to this plan and verbalizes understanding of instructions. She was given the opportunity to ask questions and all questions answered. UPPER ENDOSCOPY Findings: Larynx:normal Esophagus: GE junction at 38 cm, diaphragm hiatus at 38 cm, no varices or esophagitis. Stomach: Full of food, unable to see mucosa Duodenum: Not reached Intervention: None Impression/Findings: retained food, possible gastroparesis PLAN: Reschedule EGD and stay on clears day before, might have gastroparesis vs gastric outlet obstruction TODAY'S VISIT Patient is here today for follow-up and to discuss upper endoscopy results. Unfortunately a upper endoscopy had to be rescheduled. Patient had retained food in her stomach. Patient reports that she ate at 19:00 the night before the procedure in her procedure was not until noon time. Patient was sent for barium swallow had procedure scheduled, unsure why she has not went to her procedure. Patient recently changed her phone number as well. Will try to reschedule her gastric emptying study. Patient will is already schedule in December for repeat upper endoscopy. Patient reports to me epigastric discomfort occasionally. Feeling bloated postprandially. Sometimes patient feels bloated not related to meals. Patient reports that she continues to have constipation. Uses Linzess every day. Her dose currently is 145 mcg daily. Patient reports that she is drinking fluids. Unsure how much. Discussion about increasing fluid intake and activity with patient and her daughter. ? PFSH Medical History Cough Tubular adenoma Oxygen dependent Allergic rhinitis Chronic idiopathic constipation IBS (irritable bowel syndrome) Back pain GERD (gastroesophageal reflux disease) Hyperlipidemia Depression Restrictive lung disease secondary to obesity Smoker COPD (chronic obstructive pulmonary disease) Nocturnal hypoxemia DRE (obstructive sleep apnea) Morbid obesity Surgical History Hx of colonoscopy History of esophagogastroduodenoscopy (EGD) Hx of section Hx of carpal tunnel repair History of appendectomy Family History Mother Diabetes Heart muscle disorder caused by another medical condition Father Diabetes Epilepsy Sister No problems noted. Sister No problems noted. Sister No problems noted. Sister No problems noted. Sister No problems noted. Brother No problems noted. Brother No problems noted. Brother No problems noted. Brother No problems noted. Brother No problems noted. Brother No problems noted. Daughter No problems noted. Daughter No problems noted. Son No problems noted. Son No problems noted. Son No problems noted. Social History Alcohol intake: current Alcohol intake frequency: holidays/special occasions only Patient Tobacco Use Status: Former Tobacco user Quit Date: 3 weeks with chantix Substance Use Type: Opiates Review of Systems Const Denies weight gain and Denies weight loss ENT Reports no additional complaints, Denies dysphagia and Denies odynophagia Card Reports no additional complaints Resp Reports no additional complaints GI Reports abdominal pain (Epigastric), Denies belching, Denies melena, Reports bloating, Denies change in bowel habits, Reports constipation, Denies dysphagia, Denies excessive flatus, Denies dyspepsia, Denies heartburn, Denies diarrhea, Denies loose stools, Denies nausea, Denies odynophagia and Denies vomiting Reports no additional complaints Musc Reports no additional complaints Neuro Reports no additional complaints Psych Reports no additional complaints Endo Reports no additional complaints Physical Exam Vital Signs: Last Vital Signs Pulse 68 11/23/22 11:01 BP 125/59 L 11/23/22 11:01 BMI result Body Mass Index 45.2 Const General: no acute distress Orientation/consciousness: patient oriented x3 HEENT Head: Yes normal to inspection, Yes normocephalic and Yes atraumatic Face and sinus: Yes normal facial exam Mouth: Normal oral and palatal mucosa present Throat: Yes posterior oropharynx normal, Yes tonsils normal and Yes uvula midline Eyes General: appearance normal, both eyes and all related structures Neck Neck: Yes normal visual inspection, Yes full ROM and Yes trachea midline Thyroid: Thyroid normal Resp Effort & Inspection: normal respiratory effort, able to speak in complete sentences, no tracheal deviation and symmetric chest movement Auscultation: clear to auscultation bilaterally Cardio Rate: regular rate Heart sounds: S1 normal heart sound present and S2 normal heart sound present GI Inspection: Yes normal to inspection, No distended and Yes obesity Palpation (GI): Soft to palpation, not firm, nontender and No hepatosplenomegaly present Auscultation: normal bowel sounds General: Yes no CVA tenderness Back/Spine/Pelvis Back: no CVA tenderness Skin General skin exam: elasticity normal, turgor normal and dry skin Neuro General: patient oriented x3 Psych Appearance: grossly normal Mental Status: mental status grossly normal Speech and movement: Normal speech and movement present Assessment & Plan Assessment & Plan (1) IBS (irritable bowel syndrome): Code(s): K58.9 - Irritable bowel syndrome without diarrhea Qualifiers: Irritable bowel syndrome type: with constipation Qualified Code(s): K58.1 - Irritable bowel syndrome with constipation (2) GERD (gastroesophageal reflux disease): Code(s): K21.9 - Gastro-esophageal reflux disease without esophagitis Qualifiers: Esophagitis presence: without esophagitis Qualified Code(s): K21.9 - Gastro-esophageal reflux disease without esophagitis (3) Chronic idiopathic constipation: Code(s): K59.04 - Chronic idiopathic constipation Plan Will increase Linzess to 290 mcg daily. Patient will be booked for gastric emptying study. Please help patient schedule appointment. Patient can take lansoprazole in the morning half an hour before breakfast. May take sucralfate at noon and bedtime. Patient was encouraged to avoid dietary triggers and late night snacking. Eating small meals and more often. Staying upright for minimum 3 hours after meals discussed with patient. I will see patient after upper endoscopy, sooner on as needed basis. Patient is agreeable to this plan and verbalizes understanding of instructions. She was given the opportunity to ask questions and all questions answered. Thank you for allowing me to participate in her care Medications: New linaclotide (Linzess) 290 mcg PO QAM 30 caps 4RF K59.00 - Constipation, unspecified Discontinued linaclotide (Linzess) Discontinued Reason: Doctor's Order 145 mcg PO DAILY 30 caps 2RF Coding Level of Care Code Est Pt Level 4 (70233) Diagnoses Irritable bowel syndrome with constipation K58.1 Irritable bowel syndrome type: with constipation Gastroesophageal reflux disease without esophagitis K21.9 Esophagitis presence: without esophagitis Chronic idiopathic constipation K59.04 Time Spent (min) 35 Comment 20 minutes spent with patient and additional 15 minutes spent reviewing her records
[2022-11-23 11:01] VITALS: BP 125/59; PULSE 68; BMI 45.2
== END 2022-11-23 11:40 | disposition home or self-care (01) ==
PROVIDERS: PCP Internal Medicine Geriatric Medicine; Visit Provider Nurse Practitioner Family
DX: K58.1 Irritable bowel syndrome with constipation (principal); K21.9 Gastro-esophageal reflux disease without esophagitis; K59.04 Chronic idiopathic constipation
CPT/HCPCS: 99214

== ENCOUNTER → 2022-11-23 10:52 | Outpatient (BNVA) | payer MEDICAID, SELFPAY | PROVIDERS: PCP Internal Medicine Geriatric Medicine; Visit Provider Nurse Practitioner Family | DX: K58.1 Irritable bowel syndrome with constipation (principal); K21.9 Gastro-esophageal reflux disease without esophagitis; K59.04 Chronic idiopathic constipation; Z79.899 Other long term (current) drug therapy | CPT/HCPCS: 99212 ==

== ENCOUNTER 2022-11-24 15:36 | Outpatient (REF) | payer MEDICAID, SELFPAY ==
--- NOTE | ~2022-11-24 | XR_ITS ---
EXAMINATION: XR ANKLE, RIGHT CLINICAL INFORMATION: Injury and pain COMPARISON: None available. TECHNIQUE: AP, lateral, and mortise views of the right ankle. FINDINGS: Mortise intact. No acute abnormality. No fracture or dislocation or acute destructive process. Probable small osteochondral defect along the superior medial aspect of the talar dome. Base of the fifth metatarsal is intact. There is a moderate plantar heel spur. XR/XR ankle RT min 3V IMPRESSION: No acute abnormalities.
== END 2022-11-24 15:37 | disposition home or self-care (01) ==
LOC: HO.HHCX 15:36
PROVIDERS: Visit Provider Internal Medicine Geriatric Medicine
DX: M25.571 Pain in right ankle and joints of right foot (principal)
CPT/HCPCS: 73610

== ENCOUNTER 2022-12-03 13:18 | Outpatient (AMB) | payer MEDICAID, SELFPAY ==
--- NOTE | 2022-12-03 13:20 | MHC.OFFVIS ---
Intake Intake Visit Reasons: Nephrolithiasis Intake Note: New Patient presents for initial visit for nephrolithiasis Urology Medications: none Blood Thinner: aspirin Appliance Counselor Required: Yes Appliance Counselor Name: Mesha Accompanied by: Daughter Allergies penicillin G [Penicillin G] Allergy (Mild, Verified 12/03/22 14:29) SWELLING barium sulfate [ORAL CONTRAST] Allergy (Unknown, Verified 12/03/22 14:29) HIVES Medication List - Last Reconciled 12/03/22 by QAMAR Delgado- albuterol sulfate 2.5 mg inhalation Q4-6H PRN albuterol sulfate 90 mcg/actuation (ProAir HFA) 2 puffs PO Q4-6H PRN alcohol swabs (Alcohol Prep Pads) pad topical BID buspirone 15 mg PO BID celecoxib (Celebrex) 200 mg PO DAILY cetirizine (Zyrtec) 10 mg PO DAILY PRN 14 days clonidine HCl 0.1 mg PO BEDTIME cyclobenzaprine 10 mg PO TID PRN dulaglutide (Trulicity) mg subcut QWEEK dulaglutide (Trulicity) mg subcut QWEEK fluticasone propion-salmeterol 115-21 mcg/actuation (Advair HFA) 2 puffs inhalation Q12H 30 days gabapentin 300 mg PO TID haloperidol 1 mg PO BEDTIME insulin glargine (Lantus Solostar U-100 Insulin) 28 units subcut DAILY insulin lispro (Humalog KwikPen U-200 Insulin) units subcut ipratropium-albuterol 20-100 mcg/actuation (Combivent Respimat) 1 puff PO Q6H ketorolac 30 mg IM DAILY PRN lansoprazole 30 mg PO DAILY lidocaine 5% 1 patch topical DAILY linaclotide (Linzess) 290 mcg PO QAM meloxicam 15 mg PO DAILY metoprolol succinate ER 25 mg PO DAILY montelukast (Singulair) 10 mg PO BEDTIME multivitamin (One Daily Multivitamin tablet) 1 tab PO QAM nortriptyline 10 mg PO BEDTIME oxcarbazepine 450 mg PO oxycodone 10 mg PO Q12H PRN paroxetine HCl 40 mg PO BEDTIME pen needle, diabetic (Pentips) As directed polyethylene glycol 3350 (Miralax) 17 grams PO DAILY sertraline 100 mg PO DAILY simvastatin 20 mg PO BEDTIME sucralfate 1 g PO BID tamsulosin 0.4 mg PO QAM HPI HPI Comments History of Present Illness Details Sarita is a pleasant 57-year-old Pakistani-speaking female patient of Dr. Shaffer who was accompanied by her daughter at today's office visit. She has a past medical history of oxygen dependence, chronic idiopathic constipation, IBS, back pain, GERD, hyperlipidemia, depression, diabetes, restrictive lung disease, smoker, obstructive sleep apnea, and obesity. She presents to the office today for follow-up of her kidney male rotation. In discussion with the patient today she reports noting ongoing lower urinary tract symptoms over the last 2-3 months. She reports having followed up with her PCP regarding this issue at which time multiple UAs have been obtained however no bacterial growth noted. She reports lower abdominal/bladder pressure/discomfort. She also reports bilateral flank pain and dysuria. Recent renal imaging results reviewed with the patient today. Right kidney with no calculi or lesions noted. Pelviectasis. Left kidney with 5 mm nonobstructing calculus and pelviectasis. Unable to obtain urine for urinalysis today. PVR [address] KUB for further assessment evaluation. Discussed further UA testing with jc. She otherwise denies denies urinary urgency, urinary frequency, incontinence, nocturia, hematuria, foul smelling urine, changes to urinary stream. [facility] Medical History Cough Tubular adenoma Oxygen dependent Allergic rhinitis Chronic idiopathic constipation IBS (irritable bowel syndrome) Back pain GERD (gastroesophageal reflux disease) Hyperlipidemia Depression Restrictive lung disease secondary to obesity Smoker COPD (chronic obstructive pulmonary disease) Nocturnal hypoxemia DRE (obstructive sleep apnea) Morbid obesity Surgical History Hx of colonoscopy History of esophagogastroduodenoscopy (EGD) Hx of section Hx of carpal tunnel repair History of appendectomy Family History Mother Diabetes Heart muscle disorder caused by another medical condition Father Diabetes Epilepsy Sister No problems noted. Sister No problems noted. Sister No problems noted. Sister No problems noted. Sister No problems noted. Brother No problems noted. Brother No problems noted. Brother No problems noted. Brother No problems noted. Brother No problems noted. Brother No problems noted. Daughter No problems noted. Daughter No problems noted. Son No problems noted. Son No problems noted. Son No problems noted. Social History Alcohol intake: current Alcohol intake frequency: holidays/special occasions only Patient Tobacco Use Status: Former Tobacco user Quit Date: 3 weeks with chantix Substance Use Type: Opiates Review of Systems Const Reports as per HPI Eyes Reports no additional complaints ENT Reports no additional complaints Card Reports as per HPI Resp Reports as per HPI GI Reports as per HPI Reports as per HPI Musc Reports as per HPI Neuro Reports no additional complaints Psych Reports no additional complaints Endo Reports as per HPI Sung/Lymph Reports no additional complaints Aller/Immun Reports no additional complaints Physical Exam Const General: cooperative, healthy appearing, comfortable, no acute distress, well developed, alert and awake Orientation/consciousness: patient oriented x3 Limitations: no limitations HEENT Head: Yes normal to inspection, Yes normocephalic and Yes atraumatic Ears: hearing grossly normal bilaterally Eyes General: appearance normal, both eyes and all related structures Neck Neck: Yes normal visual inspection and Yes trachea midline Chest Chest palpation & inspection: normal inspection of the chest Resp Effort & Inspection: normal respiratory effort and able to speak in complete sentences Cardio Rate: regular rate GI Inspection: Yes normal to inspection General: Yes no CVA tenderness Back/Spine/Pelvis Back: no CVA tenderness Skin General skin exam: no rashes or lesions noted Neuro General: patient oriented x3 Extrem General: Yes normal to inspection Psych Appearance: grossly normal and well kempt Mental Status: mental status grossly normal Speech and movement: Normal speech and movement present and Clear speech present Affect: normal affect Attitude: cooperative Thought process: Normal thought process present Thought content: Normal thought content present Insight: Fair insight present (Psych) Judgement: Fair judgement present (Psych) Results Reviewed Results Reviewed: Date of Service: 09/30/22 EXAMINATION: US RETROPERITONEAL LIMITED (RENAL ONLY) FINDINGS: RIGHT KIDNEY: 14.6 x 5.6 x 6.8 cm (SAG x AP x TRV). The kidney is normal in size, contour, and echogenicity. Renal cortical thickness is normal. No calculi or focal parenchymal lesions. Pelviectasis. LEFT KIDNEY: 13.9 x 5.8 x 4.5 cm (SAG x AP x TRV). The kidney is normal in size, contour, and echogenicity. Renal cortical thickness is normal. 5 mm lower pole nonobstructing calculus. Pelviectasis. IMPRESSION: 5 mm nonobstructing left renal calculus. Bilateral pelviectasis versus extrarenal pelves. Assessment & Plan Assessment & Plan (1) Nephrolithiasis: Code(s): N20.0 - Calculus of kidney (2) Flank pain: Code(s): R10.9 - Unspecified abdominal pain (3) Dysuria: Code(s): R30.0 - Dysuria Plan Unable to obtain urine for urinalysis PVR [address] KUB for further assessment and evaluation. Will arrange for in office visit for further microgen testing as patient unable to give urine today and PVR 0 mL Discussed, educated, and stressed the importance of drinking plenty of water daily. Discussed UTI prevention with D mannose supplement, vitamin-C, increasing fluid intake, behavioral therapy with timed voiding, perineal hygiene and postcoital voiding, and management of constipation with stool softeners and increased fiber intake. Discussed and stressed the importance of quitting/limiting cigarette smoking for improvement in lower urinary tract symptoms as well as overall health and wellbeing. Discussed importance of managing diabetes for improvement in lower urinary tract symptoms as well as overall health and wellbeing. Follow-up in 1-3 weeks with imaging to be completed prior or sooner with any issues, concerns, and or questions. Orders: Orders CT kidney stone Today N20.0 - Calculus of kidney, R10.9 - Unspecified abdominal pain AMB Urinalysis Automated Today Z13.9 - Encounter for screening, unspecified Patient Instructions: The patient had an opportunity to ask questions regarding the treatment plan. All questions were answered. Physical exam, labs, and imaging were discussed and reviewed in detail. As well as risks, benefits, and discussion of treatment choices. No major barriers to understanding were identified. The patient expressed understanding and agreement with the above treatment plan. The patient was made aware they should contact our office by phone for worsening of their current condition, the appearance of new symptoms, or with any questions or concerns. Compliance is encouraged with any medications and follow up testing that is ordered. It is a privilege to be allowed the opportunity to participate in? your urological care.? Again, if you have any questions or concerns If you have any questions or concerns please do not hesitate to contact me. The office is [phone]. This note is constructed using voice recognition software. While every effort has been made to ensure accuracy training and development coordinator errors may have been included. Yours sincerely, DEMETRIUS Delgado Coding Level of Care Code Est Pt Level 3 (44644) Diagnoses Nephrolithiasis N20.0 Flank pain R10.9 Dysuria R30.0
== END 2022-12-03 14:05 | disposition home or self-care (01) ==
PROVIDERS: PCP Internal Medicine Geriatric Medicine; Visit Provider Nurse Practitioner Family
DX: N20.0 Calculus of kidney (principal); R10.9 Unspecified abdominal pain; R30.0 Dysuria
CPT/HCPCS: 99213

== ENCOUNTER → 2022-12-03 13:18 | Outpatient (BNVA) | payer MEDICAID, SELFPAY | PROVIDERS: PCP Internal Medicine Geriatric Medicine; Visit Provider Nurse Practitioner Family | DX: N20.0 Calculus of kidney (principal); R10.9 Unspecified abdominal pain; R30.0 Dysuria | CPT/HCPCS: 99212 ==

== ENCOUNTER 2022-12-07 18:27 | Outpatient (REF) | payer MEDICAID, SELFPAY ==
[2022-12-07 19:11] LABS: Influenza A PCR NEGATIVE (Negative); Influenza B PCR NEGATIVE (Negative); Resp Syncy Virus RNA Qual PCR NEGATIVE (Negative); SARS COV2 PCR INHOUSE NEGATIVE (Negative)
== END 2022-12-07 18:28 | disposition home or self-care (01) ==
LOC: HO.HHCLNP 18:27
PROVIDERS: Visit Provider Internal Medicine Geriatric Medicine
DX: J45.901 Unspecified asthma with (acute) exacerbation (principal); Z11.52 Encounter for screening for COVID-19
CPT/HCPCS: 0241U

== ENCOUNTER → 2022-12-10 08:33 | Outpatient (BNVA) | payer MEDICAID, SELFPAY | PROVIDERS: PCP Internal Medicine Geriatric Medicine; Visit Provider Nurse Practitioner Family ==

== ENCOUNTER 2022-12-13 07:18 | Outpatient (REF) | payer MEDICAID, SELFPAY ==
--- NOTE | ~2022-12-13 | CT_ITS ---
EXAMINATION: CT KIDNEY STONE CLINICAL INFORMATION: Unspecified abdominal pain. COMPARISON: Multiple prior CT scans with the last CT scan of the abdomen and pelvis dated 08/30/2022, renal ultrasound of 09/30/2022 TECHNIQUE: Multidetector volumetric CT imaging of the abdomen and pelvis is acquired without oral and intravenous contrast administration. Postprocessing is performed at a dedicated workstation. Multiplanar reformatted images are submitted. This CT scan was performed using dose optimization techniques as appropriate to a performed exam including the following: *Automated exposure control *Adjustment of mA and/or kV according to patient size (this includes techniques or standardized protocols for targeted exams were dose is matched to indication/reason for exam; i.e. extremities or head) *Use of iterative reconstruction technique DLP: 729 mGy-cm. FINDINGS: The lung bases are unremarkable. Visualized mediastinum and chest wall soft tissues are unremarkable. The unenhanced liver, spleen, adrenal glands, pancreas and biliary tree are unremarkable. Suspected. Tiny radiopaque calculi in the neck of the gallbladder (series 3 image 25 of 91). The gallbladder is somewhat contracted however the wall does not appear to be thickened. No pericholecystic fat stranding. No radiopaque calculi in the common bile duct. The kidneys are normal in size, shape and attenuation. A 0.4 cm calculus in the lower pole of the left kidney is again noted. Mildly prominent size left extrarenal pelvis is again noted. No evidence of hydroureteronephrosis. No additional radiopaque urinary tract calculi are seen. A small calcification anterior to the right psoas muscle (series 3 image 61 of 91) is a stable finding compared to multiple previous CT scans including CT scan of from 09/24/2020 and he spent to represent a vascular calcification. There are multiple phleboliths in the pelvis bilaterally. Urinary bladder is decompressed and therefore not optimally evaluated. The uterus is not seen, likely surgically absent. No adnexal mass. Surgical clips are noted along the bilateral pelvic farah. Recommend correlation with surgical history. 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 The stomach is distended with ingested material and grossly appears unremarkable. No abnormal small bowel dilatation. An appendix is not clearly identified however there are no inflammatory changes in the expected location of the appendix. The colon is normal in caliber. No evidence of colonic wall thickening or pericolonic fat stranding. Moderate to large stool burden is noted in the colon. There is no evidence of free intraperitoneal air or fluid. There is no evidence of inflammatory changes or nodularity in the omentum and mesentery. No significant abdominal wall hernia is noted. There is no evidence of pathologically enlarged lymph nodes. The aortoiliac vessels are normal in caliber. Mild calcific atherosclerosis of the distal aorta and iliac vessels. Mild degenerative changes in the visualized spine. No acute or suspicious osseous lesions. CT/CT kidney stone IMPRESSION: 1. A 0.4 cm nonobstructing calculus in the lower pole of the left kidney. No additional radiopaque urinary tract calculi are seen. No evidence of hydroureteronephrosis. 2. Moderate to large stool burden in the colon. No evidence of abnormal bowel dilatation or bowel obstruction. 3. Tiny calculi in the neck of the gallbladder are suspected. No CT evidence of acute cholecystitis.
== END 2022-12-13 07:19 | disposition home or self-care (01) ==
LOC: HO.CT 07:18
PROVIDERS: PCP Internal Medicine Geriatric Medicine; Visit Provider Nurse Practitioner Family
DX: R10.9 Unspecified abdominal pain (principal); N20.0 Calculus of kidney
CPT/HCPCS: 74176

== ENCOUNTER → 2022-12-15 07:25 | Outpatient (REF) | payer MEDICAID, SELFPAY | LOC: HO.NUCMED 07:25 | PROVIDERS: PCP Internal Medicine Geriatric Medicine; Visit Provider Nurse Practitioner Family | DX: Z13.89 Encounter for screening for other disorder (principal) ==

== ENCOUNTER 2022-12-21 10:19 | Outpatient (AMB) | payer MEDICAID, SELFPAY ==
[2022-12-21 10:50] VITALS: BP 120/78; PULSE 80; O2SAT 97; BMI 44.6
--- NOTE | 2022-12-21 10:50 | MHC.OFFVIS ---
Intake Vital Signs 12/21/22 10:50 Height 5 ft 2 in Weight 244 lb BMI 44.6 BP 120/78 Blood Pressure Location Lt brachial Position Sitting Pulse 80 Pulse Source Pulse Oximeter Pulse Oximetry (%) 97 Oxygen Delivery Method Room Air Intake Visit Reasons: Asthma Intake Note: pt is here for follow up and states she was in ER yesterday for asthma and is on antibiotic, no prednisone, still not feeling good. pt states she was told to ask about an increase in Advair. Allergies penicillin G [Penicillin G] Allergy (Mild, Verified 12/21/22 11:20) SWELLING barium sulfate [ORAL CONTRAST] Allergy (Unknown, Verified 12/21/22 11:20) HIVES Medication List - Last Reconciled 12/21/22 by Caryl Churchill MD albuterol sulfate 2.5 mg (3 mL) inhalation Q4-6H PRN 30 days albuterol sulfate 90 mcg/actuation (ProAir HFA) 2 puffs PO Q4-6H PRN alcohol swabs (Alcohol Prep Pads) pad topical BID buspirone 15 mg PO BID celecoxib (Celebrex) 200 mg PO DAILY cetirizine (Zyrtec) 10 mg PO DAILY PRN 14 days clindamycin HCl 150 mg PO Q6H 7 days clonidine HCl 0.1 mg PO BEDTIME cyclobenzaprine 10 mg PO TID PRN dulaglutide (Trulicity) mg subcut QWEEK fluticasone propion-salmeterol 115-21 mcg/actuation (Advair HFA) 2 puffs inhalation Q12H 30 days gabapentin 300 mg PO TID haloperidol 1 mg PO BEDTIME insulin glargine (Lantus Solostar U-100 Insulin) 28 units subcut DAILY insulin lispro (Humalog KwikPen U-200 Insulin) units subcut ipratropium-albuterol 20-100 mcg/actuation (Combivent Respimat) 1 puff PO Q6H ketorolac 30 mg IM DAILY PRN lansoprazole 30 mg PO DAILY lidocaine 5% 1 patch topical DAILY linaclotide (Linzess) 290 mcg PO QAM meloxicam 15 mg PO DAILY metoprolol succinate ER 25 mg PO DAILY montelukast (Singulair) 10 mg PO BEDTIME multivitamin (One Daily Multivitamin tablet) 1 tab PO QAM nortriptyline 10 mg PO BEDTIME oxcarbazepine 450 mg PO oxycodone 10 mg PO Q12H PRN paroxetine HCl 40 mg PO BEDTIME pen needle, diabetic (Pentips) As directed polyethylene glycol 3350 (Miralax) 17 grams PO DAILY sertraline 100 mg PO DAILY simvastatin 20 mg PO BEDTIME sucralfate 1 g PO BID tamsulosin 0.4 mg PO QAM Do you need a note to return to daycare/school/sports/work: No HPI Asthma HPI Details MODERATE A IS 57 YEARS OLD FEMALE, SMOKER, SAY IS SHE HAS CUT DOWN TO 6 CIGARETTES A DAY. MORBIDLY OBESE, WITH DIAGNOSIS OF DRE IN 2017, STARTED ON CPAP BUT SHE COULD NOT TOLERATE, HAS BEEN ON OXYGEN 2 L/MINUTE AT NIGHT, TO OVERCOME NOCTURNAL HYPOXEMIA. HAS RESTRICTIVE PULMONARY DISORDER SECONDARY TO HER GROSS OBESITY. ALSO HAS MILD OBSTRUCTIVE AIRWAY DISORDER. SHE IS A CASE OF CHRONIC ANXIETY/DEPRESSION/ RELATIVELY POOR UNDERSTANDING OF HER DISEASE PROBLEM. RECENTLY SEEN IN THE [facility]Y ROOM OF [facility] AND [facility], A FEW TIMES. RELATED, TO ISSUE SMELL KIDNEY STONE , UTI, AND JUST GENERAL WEAKNESS WITH SHORTNESS OF BREATH. COMES HERE TODAY FOR HER ROUTINE FOLLOW-UP. COMPLAINS OF SHORTNESS OF BREATH ON WALKING AROUND, FREQUENT BOUTS OF COUGH, AND THE O2 CANNULA COMES OUT OF HER NOSTRILS AT NIGHT. SHE DOES USE ADVAIR HFA 115-212 PUFFS B.I.D. AND COMBIVENT RESPIMAT 3 TIMES A DAY, ALSO HAS NEBULIZER AND USES ALBUTEROL SOLUTION P.R.N.. [facility] Medical History Cough Tubular adenoma Oxygen dependent Allergic rhinitis Chronic idiopathic constipation IBS (irritable bowel syndrome) Back pain GERD (gastroesophageal reflux disease) Hyperlipidemia Depression Restrictive lung disease secondary to obesity Smoker COPD (chronic obstructive pulmonary disease) Nocturnal hypoxemia DRE (obstructive sleep apnea) Morbid obesity Surgical History Hx of colonoscopy History of esophagogastroduodenoscopy (EGD) Hx of section Hx of carpal tunnel repair History of appendectomy Family History Mother Diabetes Heart muscle disorder caused by another medical condition Father Diabetes Epilepsy Sister No problems noted. Sister No problems noted. Sister No problems noted. Sister No problems noted. Sister No problems noted. Brother No problems noted. Brother No problems noted. Brother No problems noted. Brother No problems noted. Brother No problems noted. Brother No problems noted. Daughter No problems noted. Daughter No problems noted. Son No problems noted. Son No problems noted. Son No problems noted. Social History Alcohol intake: current Alcohol intake frequency: holidays/special occasions only Patient Tobacco Use Status: Current someday Tobacco user Substance Use Type: Opiates Review of Systems Const All systems reviewed & are unremarkable except as noted in HPI and below Eyes Reports no additional complaints ENT Reports no additional complaints and Reports nasal congestion (Mild intermittent) Card Denies chest pain, Denies irregular heart rhythm and Denies leg edema Resp Reports as per HPI GI Reports constipation Reports no additional complaints Musc Reports back pain Skin/Breast Reports system reviewed and no additional complaints, except as documented Neuro Reports no additional complaints Psych Reports no additional complaints Physical Exam Vital Signs: Last Vital Signs Pulse 80 12/21/22 10:50 BP 120/78 12/21/22 10:50 Pulse Ox 97 12/21/22 10:50 Oxygen Delivery Method Room Air 12/21/22 10:50 BMI result Body Mass Index 44.6 Const General: comfortable, no acute distress, alert and awake Orientation/consciousness: patient oriented x3 HEENT Head: Yes normal to inspection General nose exam: No nasal polyps present, No nasal discharge present and Other nasal findings present (She has active nasal congestion on both sides) Face and sinus: Yes sinuses nontender Mouth: oropharynx normal Throat: Yes posterior oropharynx normal Eyes General: appearance normal, both eyes and all related structures Neck Neck: Yes normal visual inspection, Yes no lymphadenopathy, Yes trachea midline and Yes no JVD Thyroid: Thyroid normal Chest Chest palpation & inspection: normal inspection of the chest, normal palpation of entire chest wall and no tenderness Resp Other: Percussion note resonant, breath sounds are distant, especially decreased over the basilar areas, with prolonged expiratory phase, but equal on both sides. I do not hear any wheezes or crepitations. Cardio Palpation: normal PMI Rate: regular rate Rhythm: regular rhythm Heart sounds: no gallops and no murmurs GI Palpation (GI): Soft to palpation, nontender, No hepatosplenomegaly present, no masses and Other GI palpation findings present (Abdomen is moderately obese) Auscultation: normal bowel sounds Back/Spine/Pelvis Thoracic/Lumbar Spine: thoracic and lumbar spine normal to inspection and thoraco-lumbar ROM limited Skin General skin exam: no rashes or lesions noted Neuro General: patient oriented x3 and no focal motor deficits Cranial nerves: Yes CN's II-XII intact bilaterally Extrem General: Yes normal to inspection, Yes no clubbing, cyanosis or edema and Yes no calf tenderness Right lower extremity: joint enlargement noted (Right knee moderately enlarged and tender) Psych Appearance: grossly normal and well kempt Mental Status: mental status grossly normal Speech and movement: Normal speech and movement present Assessment & Plan Assessment & Plan (1) Morbid obesity: Comment: SHE REMAINS MORBIDLY OBESE, TALKED TO HER ABOUT LOSING WEIGHT. SHE HAS GONE TO WEIGHT MANAGEMENT PROGRAM BUT IS NOT REGULAR. I ENCOURAGED HER TO KEEP ON LOSING WEIGHT EVEN IT IS SLOWLY COMING DOWN. Code(s): E66.01 - Morbid (severe) obesity due to excess calories (2) DRE (obstructive sleep apnea): Comment: KNOWN CASE OF OBSTRUCTIVE SLEEP APNEA BUT C OULD NOT TOLERATE CPAP , USES O2 2 L/MINUTE AT NIGHT, SHE IS TALKING ABOUT GOING ON CPAP AGAIN, BUT HER STUDY WAS BACK IN 2017. WILL HAVE TO REPEAT SLEEP STUDY TO START HER ON CPAP. I DO NOT THINK SHE IS EVER GOING TO COMPLY WITH THE USE OF CPAP. Code(s): G47.33 - Obstructive sleep apnea (adult) (pediatric) (3) Nocturnal hypoxemia: Comment: NOCTURNAL HYPOXEMIA IS PART OF HER OBSTRUCTIVE SLEEP APNEA. TX :USE OXYGEN 2 L/MINUTE, AT NIGHT. SAYS THE CANULA DOES NOT STAY IN HER NOSE ALL THE NIGHT I INSTRUCTED HER TO MAKE SURE THE CANNULA STAYS IN PLACE, AND USE O2 EVERY NIGHT Code(s): G47.34 - Idiopathic sleep related nonobstructive alveolar hypoventilation (4) COPD (chronic obstructive pulmonary disease): Comment: COPD IS RELATED TO HER SMOKING, WHICH SHE HAS QUIT SINCE LAST YEAR . SYMPTOMS ESPECIALLY COUGH MUCH LESS SINCE SHE HAS QUIT SMOKING. TX : ADVAIR HFA 115/21 2 PUFFS B.I.D., SCRIPT RENEWED. COMBIVENT RESPIMAT 1 INHALATION Q 6 HOURS PROAIR HFA 2 PUFFS Q 4-6 HOURS P.R.N. FOR ACUTE WHEEZING . Code(s): J44.9 - Chronic obstructive pulmonary disease, unspecified (5) Restrictive lung disease secondary to obesity: Comment: RESTRICTIVE LUNG DISORDER IS MAINLY BECAUSE OF HER MORBID OBESITY. PATIENT IS EDUCATED ABOUT THIS PROBLEM. SHE IS INSTRUCTED TO DO DEEP BREATHING EXERCISES 2 OR 3 TIMES A DAY. Code(s): J98.4 - Other disorders of lung; E66.9 - Obesity, unspecified (6) Allergic rhinitis: Comment: SHE HAS CHRONIC ALLERGIC RHINITIS, WHICH FLARES UP OFF AND ON TX: CONTINUE MONTELUKAST 10 MG DAILY. USE ZYRTEC 10 MG ONCE A DAY P.R.N.. Code(s): J30.9 - Allergic rhinitis, unspecified (7) Smoker: Comment: PATIENT HAS PAST HISTORY OF SMOKING. QUIT 1 YEAR AGO BUT HAS GONE BACK TO SMOKING, . NOW SMOKING ABOUT 6 CIGARETTES A DAY I COUNSELED HER VERY STRONGLY TO QUIT COMPLETELY. Code(s): F17.200 - Nicotine dependence, unspecified, uncomplicated Coding Level of Care Code Est Pt Level 4 (54066) Diagnoses Morbid obesity E66.01 DRE (obstructive sleep apnea) G47.33 Nocturnal hypoxemia G47.34 COPD (chronic obstructive pulmonary disease) J44.9 Restrictive lung disease secondary to obesity J98.4; E66.9 Allergic rhinitis J30.9 Smoker F17.200
== END 2022-12-21 11:18 | disposition home or self-care (01) ==
PROVIDERS: PCP Internal Medicine Geriatric Medicine; Visit Provider Internal Medicine
DX: E66.01 Morbid (severe) obesity due to excess calories (principal); G47.33 Obstructive sleep apnea (adult) (pediatric); G47.34 Idiopathic sleep related nonobstructive alveolar hypoventilation; J44.9 Chronic obstructive pulmonary disease, unspecified; J98.4 Other disorders of lung; E66.9 Obesity, unspecified; J30.9 Allergic rhinitis, unspecified; F17.200 Nicotine dependence, unspecified, uncomplicated
CPT/HCPCS: 99214

== ENCOUNTER → 2022-12-21 10:19 | Outpatient (BNVA) | payer MEDICAID, SELFPAY | PROVIDERS: PCP Internal Medicine Geriatric Medicine; Visit Provider Internal Medicine | DX: J44.9 Chronic obstructive pulmonary disease, unspecified (principal); J30.9 Allergic rhinitis, unspecified; J98.4 Other disorders of lung; G47.33 Obstructive sleep apnea (adult) (pediatric); G47.34 Idiopathic sleep related nonobstructive alveolar hypoventilation; E66.01 Morbid (severe) obesity due to excess calories; F17.200 Nicotine dependence, unspecified, uncomplicated; Z68.41 Body mass index [BMI] 40.0-44.9, adult | CPT/HCPCS: 99212 ==

== ENCOUNTER → 2023-01-04 06:38 | Outpatient (REF) | payer MEDICAID, SELFPAY ==
--- NOTE | ~2023-01-04 | NM_ITS ---
EXAMINATION: [place] RADIONUCLIDE SOLID FOOD GASTRIC EMPTYING 4-HOUR STUDY CLINICAL INFORMATION: Gastroesophageal reflux disease without esophagitis. COMPARISON: None available. TECHNIQUE: A standard meal consisting of 4 oz of Egg Beaters brand tagged with 676 microcuries Tc-99m Sulfur Colloid, 8 oz water and 1 1/2 slices of toast with jelly was administered orally to the patient. Images were obtained using a dual head gamma camera in the anterior and posterior projections over of the stomach immediately post ingestion and at hourly intervals up to 4 hours post ingestion. The anterior and posterior counts at each time interval were averaged using the geometric mean and expressed as percentage of the immediate post ingestion counts. FINDINGS: There is good visualization of activity in the stomach immediately post ingestion. As the study progresses, there is good clearance of activity from the stomach and visualization of progressively increasing small bowel activity. By the end of the study, there is almost no retention noted in the stomach. Retention in the stomach at each time interval was: 1 hour 48% (normal 37%-90%) 2 hours 22% (normal 30%-60%) 3 hours 16% 4 hours 10% (normal 0%-10%) W[place]/W[place] gastric emptying study IMPRESSION: Normal 4-hour solid food gastric emptying study. (For solid meal, rapid gastric emptying is less than 30% at 60 minutes. Delayed gastric emptying criteria is more than 60% remaining at 120 minutes or more than 10% at 240 minutes. The 4-hour value is the best discriminator of a normal or abnormal result). Gastric emptying study grading per JNMT Consensus Recommendations in 2008 (https://tech.snmjournals.org/content/36/) Grade 1 (mild retention): 11-20% at 4h Grade 2 (moderate retention): 21-35% at 4h Grade 3 (severe retention): 36-50% at 4h Grade 4 (very severe retention): >50% retention at 4h
== END ==
LOC: HO.NUCMED 06:38
PROVIDERS: PCP Internal Medicine Geriatric Medicine; Visit Provider Nurse Practitioner Family
DX: R10.13 Epigastric pain (principal); K21.9 Gastro-esophageal reflux disease without esophagitis
CPT/HCPCS: 78264; A9541

== ENCOUNTER 2023-01-05 09:57 | Outpatient (AMB) | payer MEDICAID, SELFPAY ==
--- NOTE | 2023-01-05 09:58 | MHC.OFFVIS ---
Intake Intake Visit Reasons: 1m/CT(set) Intake Note: Patient presents for follow up visit for nephrolithiasis/CT Scan (imaging 12/13/22) Urology Medications: tamsulosin Blood Thinner: aspirin Mainframe Consultant Required: Yes Mainframe Consultant Name: Luc Balderas - CMI Accompanied by: Daughter Allergies penicillin G [Penicillin G] Allergy (Mild, Verified 01/05/23 23:29) SWELLING barium sulfate [ORAL CONTRAST] Allergy (Unknown, Verified 01/05/23 23:29) HIVES Medication List - Last Reconciled 01/05/23 by QAMAR Delgado- albuterol sulfate 2.5 mg (3 mL) inhalation Q4-6H PRN 30 days albuterol sulfate 90 mcg/actuation (ProAir HFA) 2 puffs PO Q4-6H PRN alcohol swabs (Alcohol Prep Pads) pad topical BID aspirin 1 tab PO QPM atorvastatin 80 mg PO QPM buspirone 15 mg PO BID celecoxib (Celebrex) 200 mg PO DAILY cetirizine (Zyrtec) 10 mg PO DAILY PRN 14 days clonidine HCl 0.1 mg PO BEDTIME cyclobenzaprine 10 mg PO TID PRN dulaglutide (Trulicity) mg subcut QWEEK fluticasone propion-salmeterol 115-21 mcg/actuation (Advair HFA) 2 puffs inhalation Q12H 30 days gabapentin 300 mg PO TID haloperidol 1 mg PO BEDTIME insulin glargine (Lantus Solostar U-100 Insulin) 28 units subcut DAILY insulin lispro (Humalog KwikPen U-200 Insulin) units subcut ipratropium-albuterol 20-100 mcg/actuation (Combivent Respimat) 1 puff PO Q6H ketorolac 30 mg IM DAILY PRN lansoprazole 30 mg PO DAILY lidocaine 5% 1 patch topical DAILY linaclotide (Linzess) 290 mcg PO QAM meloxicam 15 mg PO DAILY metformin ER 500 mg PO QPM metoprolol succinate ER 25 mg PO DAILY montelukast (Singulair) 10 mg PO BEDTIME multivitamin (One Daily Multivitamin tablet) 1 tab PO QAM nortriptyline 10 mg PO BEDTIME oxcarbazepine 450 mg PO oxycodone 10 mg PO Q12H PRN paroxetine HCl 40 mg PO BEDTIME pen needle, diabetic (Pentips) As directed polyethylene glycol 3350 (Miralax) 17 grams PO DAILY pyridoxine (vitamin B6) 100 mg PO DAILY 90 days sertraline 100 mg PO DAILY simvastatin 20 mg PO BEDTIME sucralfate 1 g PO BID tamsulosin 0.4 mg PO QAM HPI HPI Comments History of Present Illness Details Sarita is a pleasant 57-year-old Estonian-speaking female patient of Dr. Shaffer who was accompanied by her daughter at today's office visit. She has a past medical history of oxygen dependence, chronic idiopathic constipation, IBS, back pain, GERD, hyperlipidemia, depression, diabetes, restrictive lung disease, smoker, obstructive sleep apnea, and obesity. She presents to the office today for follow-up of her kidney male rotation. Of note, patient was seen approximately 1 month ago at which time a CT KUB was ordered for further assessment evaluation as patient had been reporting bilateral flank pain, dysuria, and bladder pressure/discomfort. These results reviewed with the patient today. A 0.4 cm nonobstructing calculus in the lower pole of the left kidney. No additional radiopaque urinary tract calculi are seen. No evidence of hydroureteronephrosis. Moderate to large stool burden in the colon. No evidence of abnormal bowel dilatation or bowel obstruction. Discussed at length potential causes of nephrolithiasis. Discussed surgical intervention versus surveillance monitoring. Discussed and stressed the importance of managing bowels as CT noting moderate to large stool burden. She continues to report intermittent episodes of bladder pressure. Urine sent for microgen testing at last visit and no growth noted. In office urinalysis results reviewed with the patient today. She otherwise denies denies urinary urgency, urinary frequency, incontinence, nocturia, hematuria, foul smelling urine, changes to urinary stream. [facility] Medical History Cough Tubular adenoma Oxygen dependent Allergic rhinitis Chronic idiopathic constipation IBS (irritable bowel syndrome) Back pain GERD (gastroesophageal reflux disease) Hyperlipidemia Depression Restrictive lung disease secondary to obesity Smoker COPD (chronic obstructive pulmonary disease) Nocturnal hypoxemia DRE (obstructive sleep apnea) Morbid obesity Surgical History Hx of colonoscopy History of esophagogastroduodenoscopy (EGD) Hx of section Hx of carpal tunnel repair History of appendectomy Family History Mother Diabetes Heart muscle disorder caused by another medical condition Father Diabetes Epilepsy Sister No problems noted. Sister No problems noted. Sister No problems noted. Sister No problems noted. Sister No problems noted. Brother No problems noted. Brother No problems noted. Brother No problems noted. Brother No problems noted. Brother No problems noted. Brother No problems noted. Daughter No problems noted. Daughter No problems noted. Son No problems noted. Son No problems noted. Son No problems noted. Social History Alcohol intake: current Alcohol intake frequency: holidays/special occasions only Patient Tobacco Use Status: Current someday Tobacco user Substance Use Type: Opiates Review of Systems Const Reports as per HPI Eyes Reports no additional complaints ENT Reports no additional complaints Card Reports as per HPI Resp Reports as per HPI GI Reports as per HPI Reports as per HPI Musc Reports as per HPI Neuro Reports no additional complaints Psych Reports no additional complaints Endo Reports as per HPI Sung/Lymph Reports no additional complaints Aller/Immun Reports no additional complaints Physical Exam Const General: cooperative, healthy appearing, comfortable, no acute distress, well developed, alert and awake Nutritional Appearance: overweight Orientation/consciousness: patient oriented x3 Limitations: no limitations HEENT Head: Yes normal to inspection, Yes normocephalic and Yes atraumatic Ears: hearing grossly normal bilaterally Eyes General: appearance normal, both eyes and all related structures Neck Neck: Yes normal visual inspection and Yes trachea midline Chest Chest palpation & inspection: normal inspection of the chest Resp Effort & Inspection: normal respiratory effort and able to speak in complete sentences Cardio Rate: regular rate GI Inspection: Yes normal to inspection General: Yes no CVA tenderness Back/Spine/Pelvis Back: no CVA tenderness Skin General skin exam: no rashes or lesions noted Neuro General: patient oriented x3 Extrem General: Yes normal to inspection Psych Appearance: grossly normal and well kempt Mental Status: mental status grossly normal Speech and movement: Normal speech and movement present and Clear speech present Affect: normal affect Attitude: cooperative Thought process: Normal thought process present Thought content: Normal thought content present Insight: Fair insight present (Psych) Judgement: Fair judgement present (Psych) Results AMB Urinalysis, Automated UA Leukoctes 125 Mary/uL Last Edit by Christy Poncess on 01/05/23 10:13 UA Nitrite Negative Last Edit by [employer] on 01/05/23 10:13 UA Urobilinogen 0.2 mg/dL Last Edit by [employer] on 01/05/23 10:13 UA Protein 0 mg/dL Last Edit by [employer] on 01/05/23 10:13 UA pH 7.0 Last Edit by [employer] on 01/05/23 10:13 UA Blood 0 Doc/uL Last Edit by [employer] on 01/05/23 10:13 UA Specific [place] 1.015 Last Edit by [employer] on 01/05/23 10:13 UA Ketone Negative Last Edit by [employer] on 01/05/23 10:13 UA Bilirubin 0 mg/dL Last Edit by [employer] on 01/05/23 10:13 UA Glucose 0 mg/dL Last Edit by [employer] on 01/05/23 10:13 Results Reviewed Results Reviewed: Laboratory Last Values Urine pH (Auto) 7.0 01/05/23 10:04 Specific [place] (Auto) 1.015 01/05/23 10:04 Urine Protein (Auto) 0 mg/dL 01/05/23 10:04 Glucose (UA)(Auto) 0 mg/dL 01/05/23 10:04 Urine Ketones (Auto) Negative 01/05/23 10:04 Urine Blood (Auto) 0 Odc/uL 01/05/23 10:04 Urine Nitrite (Auto) Negative 01/05/23 10:04 Urine Bilirubin (Auto) 0 mg/dL 01/05/23 10:04 Urine Urobilinogen (Auto) 0.2 mg/dL 01/05/23 10:04 Leukocyte Esterase (Auto) 125 Mary/uL 01/05/23 10:04 Date of Service: 12/13/22 EXAMINATION: CT KIDNEY STONE FINDINGS: The lung bases are unremarkable. Visualized mediastinum and chest wall soft tissues are unremarkable. The unenhanced liver, spleen, adrenal glands, pancreas and biliary tree are unremarkable. Suspected. Tiny radiopaque calculi in the neck of the gallbladder (series 3 image 25 of 91). The gallbladder is somewhat contracted however the wall does not appear to be thickened. No pericholecystic fat stranding. No radiopaque calculi in the common bile duct. The kidneys are normal in size, shape and attenuation. A 0.4 cm calculus in the lower pole of the left kidney is again noted. Mildly prominent size left extrarenal pelvis is again noted. No evidence of hydroureteronephrosis. No additional radiopaque urinary tract calculi are seen. A small calcification anterior to the right psoas muscle (series 3 image 61 of 91) is a stable finding compared to multiple previous CT scans including CT scan of from 09/24/2020 and he spent to represent a vascular calcification. There are multiple phleboliths in the pelvis bilaterally. Urinary bladder is decompressed and therefore not optimally evaluated. The uterus is not seen, likely surgically absent. No adnexal mass. Surgical clips are noted along the bilateral pelvic farah. Recommend correlation with surgical history. 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 The stomach is distended with ingested material and grossly appears unremarkable. No abnormal small bowel dilatation. An appendix is not clearly identified however there are no inflammatory changes in the expected location of the appendix. The colon is normal in caliber. No evidence of colonic wall thickening or pericolonic fat stranding. Moderate to large stool burden is noted in the colon. There is no evidence of free intraperitoneal air or fluid. There is no evidence of inflammatory changes or nodularity in the omentum and mesentery. No significant abdominal wall hernia is noted. There is no evidence of pathologically enlarged lymph nodes. The aortoiliac vessels are normal in caliber. Mild calcific atherosclerosis of the distal aorta and iliac vessels. Mild degenerative changes in the visualized spine. No acute or suspicious osseous lesions. CT/CT kidney stone IMPRESSION: 1. A 0.4 cm nonobstructing calculus in the lower pole of the left kidney. No additional radiopaque urinary tract calculi are seen. No evidence of hydroureteronephrosis. 2. Moderate to large stool burden in the colon. No evidence of abnormal bowel dilatation or bowel obstruction. 3. Tiny calculi in the neck of the gallbladder are suspected. No CT evidence of acute cholecystitis. Assessment & Plan Assessment & Plan (1) Nephrolithiasis: Code(s): N20.0 - Calculus of kidney (2) Sensation of pressure in bladder area: Code(s): R39.89 - Other symptoms and signs involving the genitourinary system Plan In office urinalysis results reviewed with the patient today; as noted above. Recent CT KUB results reviewed with the patient today; as noted above. Discussed at length potential causes of nephrolithiasis. Discussed surveillance monitoring verses surgical intervention. Will continue with surveillance monitoring at this time. Start vitamin B6 as discussed and prescribed. Discussed adding 1 oz of lemon juice to water daily. Discussed, educated, and stressed the importance of drinking plenty of water daily. Discussed and stressed the importance of managing diabetes for improvement in lower urinary tract symptoms as well as overall health and well-being. Will obtain renal ultrasound in 6 months. Follow-up in 6 months with imaging to be completed prior; or sooner with any issues, concerns, and or questions. Orders: Orders AMB Urinalysis Automated Today Z13.9 - Encounter for screening, unspecified Medications: New pyridoxine (vitamin B6) 100 mg PO DAILY 90 days 90 tabs 3RF N20.0 - Calculus of kidney Patient Instructions: The patient had an opportunity to ask questions regarding the treatment plan. All questions were answered. Physical exam, labs, and imaging were discussed and reviewed in detail. As well as risks, benefits, and discussion of treatment choices. No major barriers to understanding were identified. The patient expressed understanding and agreement with the above treatment plan. The patient was made aware they should contact our office by phone for worsening of their current condition, the appearance of new symptoms, or with any questions or concerns. Compliance is encouraged with any medications and follow up testing that is ordered. It is a privilege to be allowed the opportunity to participate in? your urological care.? Again, if you have any questions or concerns If you have any questions or concerns please do not hesitate to contact me. The office is [phone]. This note is constructed using voice recognition software. While every effort has been made to ensure accuracy senior principal errors may have been included. Yours sincerely, DEMETRIUS Delgado Coding Level of Care Code Est Pt Level 4 (07621) Diagnoses Nephrolithiasis N20.0 Sensation of pressure in bladder area R39.89
== END 2023-01-05 10:34 | disposition home or self-care (01) ==
PROVIDERS: PCP Internal Medicine Geriatric Medicine; Visit Provider Nurse Practitioner Family
DX: N20.0 Calculus of kidney (principal); R39.89 Other symptoms and signs involving the genitourinary system
CPT/HCPCS: 99214

== ENCOUNTER → 2023-01-05 09:57 | Outpatient (BNVA) | payer MEDICAID, SELFPAY | PROVIDERS: PCP Internal Medicine Geriatric Medicine; Visit Provider Nurse Practitioner Family | DX: N20.0 Calculus of kidney (principal); R39.89 Other symptoms and signs involving the genitourinary system | CPT/HCPCS: 81003; 99212 ==

== ENCOUNTER 2023-01-12 07:38 | Day surgery (SDC) | payer MEDICAID, SELFPAY ==
[2023-01-10 13:51] VITALS: BMI 44.6
--- NOTE | 2023-01-11 10:08 | P.CONAN_ITS ---
Documented by User: Charisma Bennett NP 01/11/23 10:14 HPI - Anesthesia Eval Consult details Narrative: 57yo F for Upper Endoscopy s/p same 10/2022 with MAC - retained food in stomach (on trulicity!) O2 dependant COPD/RLD [facility] 12/20 with asthma symptoms. Started on abx, no predinison. EKG an CXR wnl. F/U with pulmo 12/21/2022. No changes to tx/rx. Encouraged smoking cessation, weight loss, and plan for repeat sleep study. Anesthesia Pre-Procedure Meds Is the patient on any of the following meds?: Dulaglutide (Trulicity) [facility] Active Problems Active Problems: All Active Problems (Updated 01/05/23 @ 23:42 by QAMAR Del[facility]EN[facility]) Sensation of pressure in bladder area (Acute) Dysuria (Acute) Nephrolithiasis (Acute) Flank pain (Acute) Bulimia nervosa in partial remission (Acute) Coronary artery disease (Acute) Insulin dependent type 2 diabetes mellitus (Acute) Kidney, malrotation (Acute) Tenderness (Acute) Tenderness of back (Acute) Cough (Acute) Tubular adenoma (Acute) Allergic rhinitis (Acute) Chronic idiopathic constipation (Acute) IBS (irritable bowel syndrome) (Acute) Back pain (Acute) GERD (gastroesophageal reflux disease) (Acute) Hyperlipidemia (Acute) Depression (Acute) Restrictive lung disease secondary to obesity (Acute) Smoker (Acute) COPD (chronic obstructive pulmonary disease) (Acute) Nocturnal hypoxemia (Acute) DRE (obstructive sleep apnea) (Acute) Morbid obesity (Acute) Past Medical History Medical History Cough Tubular adenoma Oxygen dependent Allergic rhinitis Chronic idiopathic constipation IBS (irritable bowel syndrome) Back pain GERD (gastroesophageal reflux disease) Hyperlipidemia Depression Restrictive lung disease secondary to obesity Smoker COPD (chronic obstructive pulmonary disease) Nocturnal hypoxemia DRE (obstructive sleep apnea) Morbid obesity Family History Family History Mother Diabetes Heart muscle disorder caused by another medical condition Father Diabetes Epilepsy Sister No problems noted. Sister No problems noted. Sister No problems noted. Sister No problems noted. Sister No problems noted. Brother No problems noted. Brother No problems noted. Brother No problems noted. Brother No problems noted. Brother No problems noted. Brother No problems noted. Daughter No problems noted. Daughter No problems noted. Son No problems noted. Son No problems noted. Son No problems noted. Family history of problems with anesthesia: No Surgical History Surgical History Hx of colonoscopy History of esophagogastroduodenoscopy (EGD) Hx of section Hx of carpal tunnel repair History of appendectomy History of Problems with Anesthesia: No Social History Alcohol intake: current Alcohol intake frequency: holidays/special occasions only Patient Tobacco Use Status: Current everyday Tobacco user Cigarettes Per Day: 7 Use of substances other than those prescribed or required for medical reasons: Yes Substance Use Type: Opiates Substance Use Type Other:: Smokes Marijuana Are you DNR?: No Advance Directives: No Advance Directives Information Provided: Yes Meds Allergies Allergy/AdvReac Type Severity Reaction Status Date / Time penicillin G [Penicillin G] Allergy Mild SWELLING Verified 01/12/23 08:52 barium sulfate Allergy Unknown HIVES Verified 01/12/23 08:52 [ORAL CONTRAST] Home Medications Medication Instructions Recorded Confirmed Last Taken Type montelukast 10 mg tablet 10 mg PO BEDTIME 02/13/20 01/10/23 Unknown History (Singulair) simvastatin 20 mg tablet 20 mg PO BEDTIME 02/13/20 01/10/23 Unknown History alcohol swabs (Alcohol Prep Pads) pad topical BID 12/05/20 01/05/23 Unknown History insulin lispro 200 unit/mL (3 mL) unit subcut 12/05/20 01/05/23 Unknown History subcutaneous pen (Humalog KwikPen U-200 Insulin) oxycodone 10 mg tablet 10 mg PO Q12H PRN Pain 12/05/20 01/10/23 Unknown History paroxetine HCl 40 mg tablet 40 mg PO BEDTIME 12/05/20 01/10/23 Unknown History pen needle, diabetic 32 gauge x #50 ea 12/05/20 01/05/23 Unknown History (Pentips) nortriptyline 10 mg capsule 10 mg PO BEDTIME 05/21/21 01/10/23 Unknown History insulin glargine 100 unit/mL (3 28 unit subcut DAILY 05/26/21 01/10/23 Unknown History mL) subcutaneous pen (Lantus Solostar U-100 Insulin) multivitamin (One Daily 1 tab PO QAM 05/26/21 01/10/23 Unknown History Multivitamin tablet) buspirone 15 mg tablet 15 mg PO BID 04/21/22 01/10/23 Unknown History celecoxib 200 mg capsule (Celebrex) 200 mg PO DAILY 04/21/22 01/10/23 Unknown History cyclobenzaprine 5 mg tablet 10 mg PO TID PRN muscle spasm 04/21/22 01/10/23 Unknown History gabapentin 600 mg tablet 300 mg PO TID 04/21/22 01/10/23 Unknown History haloperidol 1 mg tablet 1 mg PO BEDTIME 04/21/22 01/10/23 Unknown History ketorolac 30 mg/mL (1 mL) 30 mg IM DAILY PRN Pain 04/21/22 01/10/23 Unknown History injection solution lidocaine 5 % topical patch 1 patch topical DAILY 04/21/22 01/10/23 Unknown History meloxicam 15 mg tablet 15 mg PO DAILY 04/21/22 01/10/23 Unknown History metoprolol succinate 25 mg 25 mg PO DAILY 04/21/22 01/10/23 Unknown History tablet,extended release 24 hr oxcarbazepine 300 mg tablet 450 mg PO BID 04/21/22 01/10/23 Unknown History sertraline 100 mg tablet 100 mg PO DAILY 04/21/22 01/10/23 Unknown History clonidine HCl 0.1 mg tablet 0.1 mg PO BEDTIME 07/08/22 01/10/23 Unknown History dulaglutide 1.5 mg/0.5 mL 3 mg subcut QWEEK 07/08/22 01/10/23 01/05/23 History subcutaneous pen injector (Trulicity) tamsulosin 0.4 mg capsule 0.4 mg PO QAM 12/03/22 01/10/23 Unknown History aspirin 81 mg chewable tablet 1 tab PO QPM 01/05/23 01/10/23 Unknown History atorvastatin 80 mg tablet 80 mg PO QPM 01/05/23 01/10/23 Unknown History metformin 500 mg tablet,extended 500 mg PO QPM 01/05/23 01/10/23 Unknown History release 24 hr Exam Height,Weight and Vital Signs: Height 5 ft 2 in Weight 110.677 kg Pertinent Lab Results Pertinent Lab Results: Laboratory Tests 10/29/22 10:52 Sodium 135 Potassium 4.3 Chloride 101 Carbon Dioxide 26 BUN 13 Creatinine 0.62 Narrative Narrative: Per [facility] notes, CXR and EKG 12/20/22 without acute disease Assessment and Plan Assessment Anesthesia Assessment: Chart Reviewed Final Anesthetic Review Family History of Problems with Anesthesia: No History of Problems with Anesthesia: No Documented by User: Richar Alexander MD 01/12/23 09:57 HPI - Anesthesia Eval Anesthesia Pre-Procedure Meds If Yes to any meds - educate patient: Pt education - increased risk of aspiration PMFSH Past Medical History Medical History Cough Tubular adenoma Oxygen dependent Allergic rhinitis Chronic idiopathic constipation IBS (irritable bowel syndrome) Back pain GERD (gastroesophageal reflux disease) Hyperlipidemia Depression Restrictive lung disease secondary to obesity Smoker COPD (chronic obstructive pulmonary disease) Nocturnal hypoxemia DRE (obstructive sleep apnea) Morbid obesity Family History Family History Mother Diabetes Heart muscle disorder caused by another medical condition Father Diabetes Epilepsy Sister No problems noted. Sister No problems noted. Sister No problems noted. Sister No problems noted. Sister No problems noted. Brother No problems noted. Brother No problems noted. Brother No problems noted. Brother No problems noted. Brother No problems noted. Brother No problems noted. Daughter No problems noted. Daughter No problems noted. Son No problems noted. Son No problems noted. Son No problems noted. Surgical History Surgical History Hx of colonoscopy History of esophagogastroduodenoscopy (EGD) Hx of section Hx of carpal tunnel repair History of appendectomy Social History Alcohol intake: current Alcohol intake frequency: holidays/special occasions only Patient Tobacco Use Status: Current everyday Tobacco user Cigarettes Per Day: 7 Use of substances other than those prescribed or required for medical reasons: Yes Substance Use Type: Opiates Substance Use Type Other:: Smokes Marijuana Are you DNR?: No Advance Directives: No Advance Directives Information Provided: Yes Meds Allergies Allergy/AdvReac Type Severity Reaction Status Date / Time penicillin G [Penicillin G] Allergy Mild SWELLING Verified 01/12/23 08:52 barium sulfate Allergy Unknown HIVES Verified 01/12/23 08:52 [ORAL CONTRAST] Home Medications Medication Instructions Recorded Confirmed Last Taken Type montelukast 10 mg tablet 10 mg PO BEDTIME 02/13/20 01/10/23 Unknown History (Singulair) simvastatin 20 mg tablet 20 mg PO BEDTIME 02/13/20 01/10/23 Unknown History alcohol swabs (Alcohol Prep Pads) pad topical BID 12/05/20 01/05/23 Unknown History insulin lispro 200 unit/mL (3 mL) unit subcut 12/05/20 01/05/23 Unknown History subcutaneous pen (Humalog KwikPen U-200 Insulin) oxycodone 10 mg tablet 10 mg PO Q12H PRN Pain 12/05/20 01/10/23 Unknown History paroxetine HCl 40 mg tablet 40 mg PO BEDTIME 12/05/20 01/10/23 Unknown History pen needle, diabetic 32 gauge x #50 ea 12/05/20 01/05/23 Unknown History (Pentips) nortriptyline 10 mg capsule 10 mg PO BEDTIME 05/21/21 01/10/23 Unknown History insulin glargine 100 unit/mL (3 28 unit subcut DAILY 05/26/21 01/10/23 Unknown History mL) subcutaneous pen (Lantus Solostar U-100 Insulin) multivitamin (One Daily 1 tab PO QAM 05/26/21 01/10/23 Unknown History Multivitamin tablet) buspirone 15 mg tablet 15 mg PO BID 04/21/22 01/10/23 Unknown History celecoxib 200 mg capsule (Celebrex) 200 mg PO DAILY 04/21/22 01/10/23 Unknown History cyclobenzaprine 5 mg tablet 10 mg PO TID PRN muscle spasm 04/21/22 01/10/23 Unknown History gabapentin 600 mg tablet 300 mg PO TID 04/21/22 01/10/23 Unknown History haloperidol 1 mg tablet 1 mg PO BEDTIME 04/21/22 01/10/23 Unknown History ketorolac 30 mg/mL (1 mL) 30 mg IM DAILY PRN Pain 04/21/22 01/10/23 Unknown History injection solution lidocaine 5 % topical patch 1 patch topical DAILY 04/21/22 01/10/23 Unknown History meloxicam 15 mg tablet 15 mg PO DAILY 04/21/22 01/10/23 Unknown History metoprolol succinate 25 mg 25 mg PO DAILY 04/21/22 01/10/23 Unknown History tablet,extended release 24 hr oxcarbazepine 300 mg tablet 450 mg PO BID 04/21/22 01/10/23 Unknown History sertraline 100 mg tablet 100 mg PO DAILY 04/21/22 01/10/23 Unknown History clonidine HCl 0.1 mg tablet 0.1 mg PO BEDTIME 07/08/22 01/10/23 Unknown History dulaglutide 1.5 mg/0.5 mL 3 mg subcut QWEEK 07/08/22 01/10/23 01/05/23 History subcutaneous pen injector (Trulicity) tamsulosin 0.4 mg capsule 0.4 mg PO QAM 12/03/22 01/10/23 Unknown History aspirin 81 mg chewable tablet 1 tab PO QPM 01/05/23 01/10/23 Unknown History atorvastatin 80 mg tablet 80 mg PO QPM 01/05/23 01/10/23 Unknown History metformin 500 mg tablet,extended 500 mg PO QPM 01/05/23 01/10/23 Unknown History release 24 hr Exam Airway Mallampati Class: II Heart: rrr Lungs: cta Assessment and Plan Assessment Anesthesia Assessment: Anesthesia Plan Discussed Final Anesthetic Review NPO: Yes ASA Class: III Final Preanesthetic Review: No Changes in Pt Med Stat, Meds/Allgs Chart Reviewed and Consent Obtained/Reviewed Patient Risk: Intermediate Procedure Risk: Intermediate Anesthetic Plan Anesthetic Plan: GA and Agree w/ Assess. and Plan Disposition: Standard PACU
[2023-01-12 08:48] VITALS: BMI 44.0
[2023-01-12 09:03] LABS: Glucose, Whole Blood 114 mg/dL (60-115)
[2023-01-12 09:16] VITALS: BP 138/86; PULSE 80; RESP 16; TEMP 36.1; O2SAT 96
[2023-01-12] MEDS: Lactated Ringers 1,000 ML 100 ML IVCONT (09:18)
--- NOTE | 2023-01-12 09:36 | MHC.SHP ---
Pre-Procedural Eval Section A Date of Service: 01/12/23 Section B Chief Complaint: Gastro-esophageal reflux disease without esophagit Relevant Family History (Specify if Yes): No Relevant Social History: Other (specify) (THC, smoking) Present Medications: see Short Stay Collaborative assessment Medical History: Significant History (Cough Tubular adenoma Oxygen dependent Allergic rhinitis Chronic idiopathic constipation IBS (irritable bowel syndrome) Back pain GERD (gastroesophageal reflux disease) Hyperlipidemia Depression Restrictive lung disease secondary to obesity Smoker COPD (chronic obstructive pulmonary disease) [place]) History of Previous Operations: Relevant previous surgery/procedure and date(s) (Hx of colonoscopy History of esophagogastroduodenoscopy (EGD) Hx of section Hx of carpal tunnel repair History of appendectomy) Allergies: Allergies Allergy/AdvReac Type Severity Reaction Status Date / Time penicillin G [Penicillin G] Allergy Mild SWELLING Verified 01/12/23 08:52 barium sulfate Allergy Unknown HIVES Verified 01/12/23 08:52 [ORAL CONTRAST] Review of Systems Sugical H&P ROS: Negative: Constitution, Cardiovascular, Respiratory, Neurological, Psychiatric, Hem-Onc, Allergic/Immunologic, Gastrointestinal, Genitourinary, Musculoskeletal, Integumentary, Endocrine and Eyes/Ears/Nose/Throat Exam Surgical H&P Exam: Normal: HEENT, Normal: Heart, Normal: Lungs, Normal: Extremities, Normal: Abdomen, Normal: Skin and Normal: Neurological Plan Diagnosis/Plan: Unchanged I have reviewed the history and physical and performed a pertinent physical examination on my patient. No changes have occurred unless specified. Time Spent With Patient Time: Total time managing care of this patient today ____ minutes.
--- NOTE | 2023-01-12 10:08 | W.PM.OPN ---
Operative Note Operative Note Date of Service: 01/12/23 Narrative: Procedure Description: EGD Indication: GERD Anesthesia: MAC FLEXIBLE TRANSORAL UPPER GASTROINTESTINAL ENDOSCOPY UPPER ENDOSCOPY Consent: Indications for the procedure and potential complications of bleeding, perforation, reaction to medications and missed diagnosis were discussed with the patient and informed consent was obtained. Instrument: Olympus GIF H 190 J mid size upper endoscope Monitoring: Vital signs and clinical assessment, continuous EKG monitoring, Pulse oximetry, Carbon Dioxide monitoring and blood pressure monitoring were done throughout the procedure. Procedure: The patient was placed in the left lateral decubitis position and pre-procedure medications were administered and a bite block was placed. The endoscope was inserted into the mouth and advanced under direct vision to the third part of duodenum. A careful inspection was made as the upper endoscope was withdrawn including a retroflexed examination of the proximal stomach; Findings and interventions are described below. Findings: Larynx:normal Esophagus: GE junction at 38 cm, diaphragm hiatus at 38 cm, linear erosion noted about 2-3 cm Stomach: Patchy gastric erythema. Biopsies were obtained. Grade 3 flap valve on retroflexed examination of the cardia. LES was lax. Lack of gastric movement noted Duodenum: Normal bulb and descending duodenum, bx taken Intervention: Biopsies as noted above Impression/Findings: possible gastroparesis lax LES erosive esophagitis PLAN: smoking cessation may have gastroparesis from GLP-1 drugs ensure compliance with PPI
[2023-01-12 10:42] VITALS: PULSE 73; RESP 16; O2SAT 99
[2023-01-12] MEDS: Albuterol Sulfate (0.083%) 2.5 MG/3 ML VIAL.NEB INHALE (10:42)
[2023-01-12 10:58] VITALS: BP 114/78; PULSE 89; RESP 16; TEMP 36.1; O2SAT 96
[2023-01-12 11:15] VITALS: BP 109/71; PULSE 77; RESP 18; TEMP 36.1; O2SAT 97
== END 2023-01-12 11:44 | disposition home or self-care (01) ==
PROVIDERS: PCP Internal Medicine Geriatric Medicine; Visit Provider Internal Medicine Gastroenterology
PROC: 0DJ08ZZ Inspection of Upper Intestinal Tract, Via Natural or Artificial Opening Endoscopic (ICD-10-PCS; CPT 43235; principal; 2023-01-12 10:50)
DX: K21.9 Gastro-esophageal reflux disease without esophagitis (principal); R10.13 Epigastric pain; K29.80 Duodenitis without bleeding; K20.80 Other esophagitis without bleeding; K22.4 Dyskinesia of esophagus; K44.9 Diaphragmatic hernia without obstruction or gangrene; K58.1 Irritable bowel syndrome with constipation; J44.9 Chronic obstructive pulmonary disease, unspecified; J98.4 Other disorders of lung; E11.9 Type 2 diabetes mellitus without complications; E78.5 Hyperlipidemia, unspecified; G47.33 Obstructive sleep apnea (adult) (pediatric); E66.01 Morbid (severe) obesity due to excess calories; Z68.42 Body mass index [BMI] 45.0-49.9, adult; Z79.4 Long term (current) use of insulin; Z79.85 Long-term (current) use of injectable non-insulin antidiabetic drugs; Z99.81 Dependence on supplemental oxygen; Z79.51 Long term (current) use of inhaled steroids; Z79.82 Long term (current) use of aspirin; Z88.0 Allergy status to penicillin; Z91.041 Radiographic dye allergy status; Z87.891 Personal history of nicotine dependence; F12.90 Cannabis use, unspecified, uncomplicated
CPT/HCPCS: 43239; 82947; 88305; 88342; 94640; J2704

== ENCOUNTER → 2023-01-12 07:38 | Outpatient (BNV) | payer MEDICAID, SELFPAY | PROVIDERS: PCP Internal Medicine Geriatric Medicine; Visit Provider Internal Medicine Gastroenterology | DX: K21.00 Gastro-esophageal reflux disease with esophagitis, without bleeding (principal); K31.84 Gastroparesis | CPT/HCPCS: 43239 ==

== ENCOUNTER 2023-01-19 12:48 | Outpatient (AMB) | payer MEDICAID, SELFPAY ==
--- NOTE | 2023-01-19 13:00 | A.OFFVIS_ITS ---
Intake Vital Signs 01/19/23 13:09 BP 131/72 Blood Pressure Location Lt brachial Position Sitting Pulse 79 Intake Visit Reasons: Follow Up EGD Intake Note: Sarita presents in the office as a follow up EGD. CC: Patient states that she is having severe burning in her epigatric region. Nausea and unable to keep foods down. She denies constipation and diarrhea. ER gave her omeprazole and Sucralfate -- states she is in severe pains. Allergies penicillin G [Penicillin G] Allergy (Mild, Verified 01/19/23 13:01) SWELLING barium sulfate [ORAL CONTRAST] Allergy (Unknown, Verified 01/19/23 13:01) HIVES HPI Follow Up EGD HPI Details LAST VISIT: IBS (irritable bowel syndrome) GERD (gastroesophageal reflux disease) Chronic idiopathic constipation Plan Will increase Linzess to 290 mcg daily. Patient will be booked for gastric emptying study. Please help patient schedule appointment. Patient can take lansoprazole in the morning half an hour before breakfast. May take sucralfate at noon and bedtime. Patient was encouraged to avoid dietary triggers and late night snacking. Eating small meals and more often. Staying upright for minimum 3 hours after meals discussed with patient. I will see patient after upper endoscopy, sooner on as needed basis. Patient is agreeable to this plan and verbalizes understanding of instructions. She was given the opportunity to ask questions and all questions answered. ? Thank you for allowing me to participate in her care Medications New linaclotide (Linzess) 290 mcg PO QAM 30 caps 4RF K59.00 Discontinued linaclotide (Linzess) Discontinued Reason: Doctor's Order 145 mcg PO DAILY 30 caps 2RF UPPER ENDOSCOPY Findings: Larynx:normal Esophagus: GE junction at 38 cm, diaphragm hiatus at 38 cm, linear erosion noted about 2-3 cm Stomach: Patchy gastric erythema. Biopsies were obtained. Grade 3 flap valve on retroflexed examination of the cardia. LES was lax. Lack of gastric movement noted Duodenum: Normal bulb and descending duodenum, bx taken Intervention: Biopsies as noted above Impression/Findings: possible gastroparesis lax LES erosive esophagitis PLAN: smoking cessation may have gastroparesis from GLP-1 drugs ensure compliance with PPI PATHOLOGY RESULTS Diagnosis A. Duodenum, biopsy: Chronic inactive duodenitis. B. Stomach, biopsy: Antral-type mucosa with moderate chronic inactive inflammation; no Helicobacter organisms seen. C. Esophagus, distal, biopsy: Active esophagitis (maximum eosinophil count 1 per high powered field). D. Esophagus, proximal, biopsy: Squamous epithelium within normal limits; no inflammation seen TODAY'S VISIT: Patient is here today complaining of severe epigastric discomfort with nausea and vomiting. Patient is unable to eat much. Seen in the ER at [facility] yesterday for the same symptoms and was sent home with sucralfate and omeprazole 20 mg. Patient was already taking as omeprazole 30 mg. As mentioned above patient had upper endoscopy on January 12, esophagitis, in active duodenitis and mild gastritis found. Patient had gastric emptying study done, normal gastric emptying study. However patient is taking Trulicity and that could be contributing to her symptoms. Patient reports dyspepsia without dysphagia or odynophagia. Denies melena, hematochezia, unintentional weight loss or ribbon like stools. Patient reports to have normal bowel movements [facility] Medical History Cough Tubular adenoma Oxygen dependent Allergic rhinitis Chronic idiopathic constipation IBS (irritable bowel syndrome) Back pain GERD (gastroesophageal reflux disease) Hyperlipidemia Depression Restrictive lung disease secondary to obesity Smoker COPD (chronic obstructive pulmonary disease) Nocturnal hypoxemia DRE (obstructive sleep apnea) Morbid obesity Surgical History Hx of colonoscopy History of esophagogastroduodenoscopy (EGD) Hx of section Hx of carpal tunnel repair History of appendectomy Family History Mother Diabetes Heart muscle disorder caused by another medical condition Father Diabetes Epilepsy Sister No problems noted. Sister No problems noted. Sister No problems noted. Sister No problems noted. Sister No problems noted. Brother No problems noted. Brother No problems noted. Brother No problems noted. Brother No problems noted. Brother No problems noted. Brother No problems noted. Daughter No problems noted. Daughter No problems noted. Son No problems noted. Son No problems noted. Son No problems noted. Social History Alcohol intake: current Alcohol intake frequency: holidays/special occasions only Patient Tobacco Use Status: Current everyday Tobacco user Cigarettes Per Day: 7 Substance Use Type: Opiates Review of Systems Const Denies weight gain and Denies weight loss ENT Reports no additional complaints, Denies dysphagia and Denies odynophagia Card Reports no additional complaints Resp Reports no additional complaints GI Reports abdominal pain (Epigastric), Denies belching, Denies melena, Denies bloating, Denies change in bowel habits, Denies dysphagia, Denies excessive flatus, Denies dyspepsia, Denies heartburn, Denies diarrhea, Denies loose stools, Reports nausea, Denies odynophagia and Reports vomiting Reports no additional complaints Musc Reports no additional complaints Neuro Reports no additional complaints Psych Reports no additional complaints Endo Reports no additional complaints Physical Exam Vital Signs: Last Vital Signs Pulse 79 01/19/23 13:09 BP 131/72 01/19/23 13:09 Const Other: Patient is in wheelchair General: in distress Nutritional Appearance: obese Orientation/consciousness: patient oriented x3 HEENT Head: Yes normal to inspection, Yes normocephalic and Yes atraumatic Face and sinus: Yes normal facial exam Mouth: Normal oral and palatal mucosa present Throat: Yes posterior oropharynx normal, Yes tonsils normal and Yes uvula midlin e Eyes General: appearance normal, both eyes and all related structures Neck Neck: Yes normal visual inspection, Yes full ROM and Yes trachea midline Thyroid: Thyroid normal Resp Effort & Inspection: normal respiratory effort, able to speak in complete sentences, no tracheal deviation and symmetric chest movement Auscultation: clear to auscultation bilaterally Cardio Rate: regular rate Heart sounds: S1 normal heart sound present and S2 normal heart sound present GI Inspection: Yes normal to inspection, No distended and Yes obesity Palpation (GI): Soft to palpation, not firm, nontender and No hepatosplenomegaly present Auscultation: normal bowel sounds General: Yes no CVA tenderness Back/Spine/Pelvis Back: no CVA tenderness Skin General skin exam: elasticity normal, turgor normal and dry skin Neuro General: patient oriented x3 Psych Appearance: grossly normal Mental Status: mental status grossly normal Results Reviewed Results Reviewed: GASTRIC EMPTYING STUDY 01/04/2023 FINDINGS: There is good visualization of activity in the stomach immediately post ingestion. As the study progresses, there is good clearance of activity from the stomach and visualization of progressively increasing small bowel activity. By the end of the study, there is almost no retention noted in the stomach. Retention in the stomach at each time interval was: 1 hour 48% (normal 37%-90%) 2 hours 22% (normal 30%-60%) 3 hours 16% 4 hours 10% (normal 0%-10%) NM/NM gastric emptying study IMPRESSION: Normal 4-hour solid food gastric emptying study. Assessment & Plan Assessment & Plan (1) GERD (gastroesophageal reflux disease): Code(s): K21.9 - Gastro-esophageal reflux disease without esophagitis Qualifiers: Esophagitis presence: without esophagitis Qualified Code(s): K21.9 - Gastro-esophageal reflux disease without esophagitis (2) IBS (irritable bowel syndrome): Code(s): K58.9 - Irritable bowel syndrome without diarrhea Qualifiers: Irritable bowel syndrome type: with constipation Qualified Code(s): K58.1 - Irritable bowel syndrome with constipation (3) Epigastric pain: Code(s): R10.13 - Epigastric pain (4) Esophagitis: Code(s): K20.90 - Esophagitis, unspecified without bleeding (5) Gastritis: Code(s): K29.70 - Gastritis, unspecified, without bleeding Qualifiers: Gastritis type: superficial Chronicity: chronic Gastritis bleeding: without bleeding Qualified Code(s): K29.30 - Chronic superficial gastritis without bleeding (6) Duodenitis: Code(s): K29.80 - Duodenitis without bleeding Plan Patient will start taking Nexium twice a day. She can take sucralfate at noon and at bedtime. Avoid dietary triggers. Zofran given for symptoms of nausea. Recommend stopping Trulicity and increasing Lantus at bedtime to manage her blood sugars. Trulicity most likely contributing to patient's symptoms. Patient had normal gastric emptying study, however her symptoms of gastroparesis could be mild. Discussed with patient the importance of avoiding dietary triggers. List of food recommended as well as list of food to avoid given to patient. Patient will follow-up in the office in 2 weeks, sooner on as needed basis. She is agreeable to this plan and verbalizes understanding of instructions. She was given the opportunity to ask questions all questions answered. Medications: New esomeprazole magnesium (Nexium) 40 mg PO BID 60 caps 5RF K21.9 - Gastro- esophageal reflux disease without esophagitis ondansetron 4 mg PO Q8H PRN 20 tabs 0RF nausea and vomiting R11.0 - Nausea esomeprazole magnesium (Nexium) 40 mg PO BID 90 days 180 caps 3RF K21.9 - Gastro-esophageal reflux disease without esophagitis ondansetron 4 mg PO DAILY PRN 20 tabs 0RF nausea and vomiting R11.0 - Nausea Discontinued lansoprazole Take every morning half an hour before breakfast Discontinued Reason: Doctor's Order 30 mg PO DAILY 30 caps 3RF K21.9 - Gastro-esophageal reflux disease without esophagitis Coding Level of Care Code Est Pt Level 4 (69154) Diagnoses Gastroesophageal reflux disease without esophagitis K21.9 Esophagitis presence: without esophagitis Irritable bowel syndrome with constipation K58.1 Irritable bowel syndrome type: with constipation Epigastric pain R10.13 Esophagitis K20.90 Chronic superficial gastritis without bleeding K29.30 Gastritis type: superficial Chronicity: chronic Gastritis bleeding: without bleeding Duodenitis K29.80 Time Spent (min) 40 Comment 25 minute spent with patient and additional 15 minutes spent reviewing her records
[2023-01-19 13:09] VITALS: BP 131/72; PULSE 79
== END 2023-01-19 14:03 | disposition home or self-care (01) ==
PROVIDERS: PCP Internal Medicine Geriatric Medicine; Visit Provider Nurse Practitioner Family
DX: K21.9 Gastro-esophageal reflux disease without esophagitis (principal); K58.1 Irritable bowel syndrome with constipation; R10.13 Epigastric pain; K20.90 Esophagitis, unspecified without bleeding; K29.30 Chronic superficial gastritis without bleeding; K29.80 Duodenitis without bleeding
CPT/HCPCS: 99214

== ENCOUNTER → 2023-01-19 12:48 | Outpatient (BNVA) | payer MEDICAID, SELFPAY | PROVIDERS: PCP Internal Medicine Geriatric Medicine; Visit Provider Nurse Practitioner Family | DX: K21.9 Gastro-esophageal reflux disease without esophagitis (principal); K58.1 Irritable bowel syndrome with constipation; K20.90 Esophagitis, unspecified without bleeding; K29.30 Chronic superficial gastritis without bleeding; K29.80 Duodenitis without bleeding; R10.13 Epigastric pain | CPT/HCPCS: 99212 ==

== ENCOUNTER 2023-02-02 13:23 | Outpatient (AMB) | payer MEDICAID, SELFPAY ==
--- NOTE | 2023-02-02 13:25 | MHC.OFFVIS ---
Intake Vital Signs 02/02/23 13:27 Height 5 ft 2 in Weight 242 lb 8.136 oz BMI 44.4 BP 119/74 Blood Pressure Location Rt brachial Position Sitting Pulse 79 Pulse Source Pulse Oximeter Intake Visit Reasons: 2 WEEK FOLLOW UP Intake Note: Pt presents to the office today for a 2 week follow up. Pt states she is feeling much better than last time. Pt states she has a little burning sensation in her stomach but it is not as bad as before. Pt denies any N/V/D. Allergies penicillin G [Penicillin G] Allergy (Mild, Verified 02/02/23 13:28) SWELLING barium sulfate [ORAL CONTRAST] Allergy (Unknown, Verified 02/02/23 13:28) HIVES HPI 2 WEEK FOLLOW UP HPI Details LAST VISIT: GERD (gastroesophageal reflux disease) IBS (irritable bowel syndrome) Epigastric pain Esophagitis Gastritis Duodenitis Plan Patient will start taking Nexium twice a day. She can take sucralfate at noon and at bedtime. Avoid dietary triggers. Zofran given for symptoms of nausea. Recommend stopping Trulicity and increasing Lantus at bedtime to manage her blood sugars. Trulicity most likely contributing to patient's symptoms. Patient had normal gastric emptying study, however her symptoms of gastroparesis could be mild. Discussed with patient the importance of avoiding dietary triggers. List of food recommended as well as list of food to avoid given to patient. Patient will follow-up in the office in 2 weeks, sooner on as needed basis. She is agreeable to this plan and verbalizes understanding of instructions. She was given the opportunity to ask questions all questions answered. Medications New esomeprazole magnesium (Nexium) 40 mg PO BID 60 caps 5RF K21.9 ondansetron 4 mg PO Q8H PRN 20 tabs 0RF nausea and vomiting R11.0 esomeprazole magnesium (Nexium) 40 mg PO BID 90 days 180 caps 3RF K21.9 ondansetron 4 mg PO DAILY PRN 20 tabs 0RF nausea and vomiting R11.0 Discontinued lansoprazole Take every morning half an hour before breakfast Discontinued Reason: Doctor's Order 30 mg PO DAILY 30 caps 3RF K21.9 TODAY'S VISIT Patient is here today for follow-up. Patient is accompanied by her CATHOLIC PRIEST who is also her nephew. Patient reports that since she started taking Nexium she has been feeling better. Patient stopped taking Trulicity over week ago, unsure if this is related to her stopping the medications or just changing her PPI. Patient reports that her glucose level was better this morning when it was checked by a nurse at her PCPs office and her A1c is down to 7% per patient. Patient reports occasionally feeling nauseous, however not nearly as much as before. Patient denies dyspepsia, dysphagia or odynophagia. Patient denies any melena, hematochezia, unintentional weight loss or ribbon like stools. Patient reports that she is trying to eat better PFSH Medical History Cough Tubular adenoma Oxygen dependent Allergic rhinitis Chronic idiopathic constipation IBS (irritable bowel syndrome) Back pain GERD (gastroesophageal reflux disease) Hyperlipidemia Depression Restrictive lung disease secondary to obesity Smoker COPD (chronic obstructive pulmonary disease) Nocturnal hypoxemia DRE (obstructive sleep apnea) Morbid obesity Surgical History Hx of colonoscopy History of esophagogastroduodenoscopy (EGD) Hx of section Hx of carpal tunnel repair History of appendectomy Family History Mother Diabetes Heart muscle disorder caused by another medical condition Father Diabetes Epilepsy Sister No problems noted. Sister No problems noted. Sister No problems noted. Sister No problems noted. Sister No problems noted. Brother No problems noted. Brother No problems noted. Brother No problems noted. Brother No problems noted. Brother No problems noted. Brother No problems noted. Daughter No problems noted. Daughter No problems noted. Son No problems noted. Son No problems noted. Son No problems noted. Social History Alcohol intake: current Alcohol intake frequency: holidays/special occasions only Patient Tobacco Use Status: Current everyday Tobacco user Cigarettes Per Day: 7 Substance Use Type: Opiates Physical Exam Vital Signs: Last Vital Signs Pulse 79 12/13/23 13:27 BP 119/74 02/02/23 13:27 BMI result Body Mass Index 44.4 Const General: healthy appearing, no acute distress and well developed Nutritional Appearance: obese Orientation/consciousness: patient oriented x3 HEENT Head: Yes normal to inspection, Yes normocephalic and Yes atraumatic Face and sinus: Yes normal facial exam Mouth: Normal oral and palatal mucosa present Throat: Yes posterior oropharynx normal, Yes tonsils normal and Yes uvula midline Eyes General: appearance normal, both eyes and all related structures Neck Neck: Yes normal visual inspection, Yes full ROM and Yes trachea midline Thyroid: Thyroid normal Resp Effort & Inspection: normal respiratory effort, able to speak in complete sentences, no tracheal deviation and symmetric chest movement Auscultation: clear to auscultation bilaterally Cardio Rate: regular rate GI Inspection: Yes normal to inspection, No distended and Yes obesity Palpation (GI): Soft to palpation, not firm, nontender and No hepatosplenomegaly present Auscultation: normal bowel sounds General: Yes no CVA tenderness Back/Spine/Pelvis Back: no CVA tenderness Skin General skin exam: elasticity normal, turgor normal and dry skin Neuro General: patient oriented x3 Psych Appearance: grossly normal Mental Status: mental status grossly normal Assessment & Plan Assessment & Plan (1) GERD (gastroesophageal reflux disease): Code(s): K21.9 - Gastro-esophageal reflux disease without esophagitis Qualifiers: Esophagitis presence: without esophagitis Qualified Code(s): K21.9 - Gastro-esophageal reflux disease without esophagitis (2) IBS (irritable bowel syndrome): Code(s): K58.9 - Irritable bowel syndrome without diarrhea Qualifiers: Irritable bowel syndrome type: with constipation Qualified Code(s): K58.1 - Irritable bowel syndrome with constipation (3) Epigastric pain: Code(s): R10.13 - Epigastric pain (4) Esophagitis: Code(s): K20.90 - Esophagitis, unspecified without bleeding (5) Gastritis: Code(s): K29.70 - Gastritis, unspecified, without bleeding Qualifiers: Gastritis type: superficial Chronicity: chronic Gastritis bleeding: without bleeding Qualified Code(s): K29.30 - Chronic superficial gastritis without bleeding (6) Duodenitis: Code(s): K29.80 - Duodenitis without bleeding Plan Continue avoiding dietary triggers. Patient was instructed to change her diet. Eat smaller meals and more often. Sucralfate only at bedtime. Continue Nexium twice a day. May use Zofran on as needed basis, however patient was instructed to eat smaller meals, avoid carbs, avoid greasy and spicy food. All this was discussed with patient and her CATHOLIC PRIEST. Patient will return in the office in 3 months, sooner on as needed basis. Patient was also encouraged to avoid eating late at night. Staying upright for minimum 3 hours after meals discussed with patient. Both patient and her CATHOLIC PRIEST are agreeable to plan of care and verbalizes understanding of instructions. They were given opportunity to ask questions and all questions answered. Thank you for allowing me to participate in her care Medications: Changed From sucralfate tomelo dos veces al sharron 1 tableta al mediodia y 1 a la hora de acostarse. 1 g PO BID 60 tabs 2RF R19.7 - Diarrhea, unspecified To sucralfate 1 g PO BEDTIME 90 tabs 2RF R19.7 - Diarrhea, unspecified Coding Level of Care Code Est Pt Level 3 (45249) Diagnoses Gastroesophageal reflux disease without esophagitis K21.9 Esophagitis presence: without esophagitis Irritable bowel syndrome with constipation K58.1 Irritable bowel syndrome type: with constipation Epigastric pain R10.13 Esophagitis K20.90 Chronic superficial gastritis without bleeding K29.30 Gastritis type: superficial Chronicity: chronic Gastritis bleeding: without bleeding Duodenitis K29.80 Time Spent (min) 25 Comment 15 minutes spent with patient and additional 10 minutes spent reviewing her records
[2023-02-02 13:27] VITALS: BP 119/74; PULSE 79; BMI 44.4
== END 2023-02-02 14:01 | disposition home or self-care (01) ==
PROVIDERS: PCP Internal Medicine Geriatric Medicine; Visit Provider Nurse Practitioner Family
DX: K21.9 Gastro-esophageal reflux disease without esophagitis (principal); K58.1 Irritable bowel syndrome with constipation; R10.13 Epigastric pain; K20.90 Esophagitis, unspecified without bleeding; K29.30 Chronic superficial gastritis without bleeding; K29.80 Duodenitis without bleeding
CPT/HCPCS: 99213

== ENCOUNTER → 2023-02-02 13:23 | Outpatient (BNVA) | payer MEDICAID, SELFPAY | PROVIDERS: PCP Internal Medicine Geriatric Medicine; Visit Provider Nurse Practitioner Family | DX: K21.9 Gastro-esophageal reflux disease without esophagitis (principal); K58.1 Irritable bowel syndrome with constipation; K20.90 Esophagitis, unspecified without bleeding; K29.30 Chronic superficial gastritis without bleeding; R10.13 Epigastric pain; K29.80 Duodenitis without bleeding | CPT/HCPCS: 99212 ==

== ENCOUNTER 2023-02-07 09:49 | Outpatient (REF) | payer MEDICAID, SELFPAY ==
--- NOTE | ~2023-02-07 | XR_ITS ---
EXAMINATION: XR LUMBOSACRAL SPINE CLINICAL INFORMATION: Back pain. COMPARISON: CT kidney stone 12/13/2022. TECHNIQUE: 3 views of the lumbosacral spine. FINDINGS: Surgical clips in the pelvis. Degenerative changes with sclerosis in the bilateral sacroiliac joints. Facet arthritis in the lower lumbar spine. Degenerative changes with flowing anterior osteophytes in the imaged lower thoracic spine. There are hypoplastic ribs at what will be referred to as the T12 vertebral body for the purposes of this report. Moderate multilevel degenerative changes in the lumbar spine with moderate loss of disc space height at L4-L5. The bones are diffusely demineralized. XR/XR lumbar spine 2-3V IMPRESSION: 1. Moderate multilevel degenerative disc disease most notable at L4-L5. 2. Facet arthritis in the lower lumbar spine.
== END 2023-02-07 09:50 | disposition home or self-care (01) ==
LOC: HO.XRAY 09:49
PROVIDERS: PCP Student in an Organized Health Care Education/Training Program; Visit Provider Student in an Organized Health Care Education/Training Program
DX: M54.50 Low back pain, unspecified (principal)
CPT/HCPCS: 72100

== ENCOUNTER 2023-03-31 10:54 | Outpatient (AMB) | payer MEDICAID, SELFPAY ==
[2023-03-31 11:14] VITALS: BP 118/72; PULSE 86; O2SAT 96; BMI 44.3
--- NOTE | 2023-03-31 11:14 | A.OFFVIS_ITS ---
Intake Vital Signs 03/31/23 11:14 Height 5 ft 2 in Weight 242 lb BMI 44.3 BP 118/72 Blood Pressure Location Lt brachial Position Sitting Pulse 86 Pulse Source Pulse Oximeter Pulse Oximetry (%) 96 Oxygen Delivery Method Room Air Intake Visit Reasons: Asthma Intake Note: pt is here for follow up and state she has been sick for 4 weeks, went to [facility] 3- [facility] times and ER also, she is still coughing, wheezing, short of breath with walking, very tight in chest no production. She would like refill on benzonatate 100mg and she has a refill on prednisone and pcp told her to fill it when she is done this treatment. Also, she is wondering about an O2 sat meter for at home. Check Viewer Required: No Allergies penicillin G [Penicillin G] Allergy (Mild, Verified 03/31/23 11:39) SWELLING barium sulfate [ORAL CONTRAST] Allergy (Unknown, Verified 03/31/23 11:39) HIVES Medication List - Last Reconciled 03/31/23 by Caryl Churchill MD albuterol sulfate 90 mcg/actuation (ProAir HFA) 2 puffs PO Q4-6H PRN albuterol sulfate 2.5 mg (3 mL) inhalation Q4-6H PRN 30 days alcohol swabs (Alcohol Prep Pads) pad topical BID aspirin 1 tab PO QPM atorvastatin 80 mg PO QPM buspirone 15 mg PO BID cetirizine (Zyrtec) 10 mg PO DAILY PRN 14 days clonidine HCl 0.1 mg PO BEDTIME dulaglutide (Trulicity) 3 mg subcut QWEEK esomeprazole magnesium (Nexium) 40 mg PO BID 90 days fluticasone propion-salmeterol 115-21 mcg/actuation (Advair HFA) 2 puffs inhalation Q12H 30 days gabapentin 300 mg PO TID haloperidol 1 mg PO BEDTIME insulin glargine (Lantus Solostar U-100 Insulin) 28 units subcut DAILY insulin lispro (Humalog KwikPen U-200 Insulin) units subcut ipratropium-albuterol 20-100 mcg/actuation (Combivent Respimat) 1 puff PO Q6H lidocaine 5% 1 patch topical DAILY linaclotide (Linzess) 290 mcg PO QAM metformin ER 500 mg PO QPM metoprolol succinate ER 25 mg PO DAILY montelukast (Singulair) 10 mg PO BEDTIME multivitamin (One Daily Multivitamin tablet) 1 tab PO QAM nortriptyline 10 mg PO BEDTIME ondansetron 4 mg PO DAILY PRN oxcarbazepine 450 mg PO BID oxycodone 10 mg PO Q12H PRN paroxetine HCl 40 mg PO BEDTIME pen needle, diabetic (Pentips) As directed polyethylene glycol 3350 (Miralax) 17 grams PO DAILY pyridoxine (vitamin B6) 100 mg PO DAILY 90 days sertraline 100 mg PO DAILY simvastatin 20 mg PO BEDTIME sucralfate 1 g PO BEDTIME tamsulosin 0.4 mg PO QAM Do you need a note to return to daycare/school/sports/work: No HPI Asthma HPI Details THIS PATIENT IS 57 YEARS OLD, MORBIDLY OBESE, AND SMOKER , ALONG WITH MULTIPLE COMORBIDITIES. SHE DOES HAVE SLEEP APNEA BUT COULD NOT USE CPAP. SHE USES O2 2 L/MINUTE AT NIGHT. SHE IS BEING TREATED FOR CHRONIC ALLERGIC RHINITIS, RESTRICTIVE PULMONARY DISORDER, AND OBSTRUCTIVE DISORDER. IN THE PAST FEW WEEKS SHE HAS BEEN SEEN AT THE EMERGENCY ROOM OF [facility] AND ALSO AT PCP OFFICE IN [facility]. HAS BEEN TREATED WITH A COURSE OF PREDNISONE AND SOME ANTIBIOTIC WHICH SHE DOES NOT KNOW THE NAME OF. AT PRESENT HER ISSUE IS THAT SHE HAS VERY FREQUENT COUGH AND FEELS CONGESTED IN THE NOSE. THE BOUTS OF COUGH MAKE HER SHORT OF BREATH. SHE DENIES ANY WHEEZING ATTACKS. SHE IS ON A LONG LIST OF MEDICATIONS AND IS SOMEWHAT CONFUSED ABOUT THE LIST. SHE HAS USED VARIOUS THE MEDICATIONS FOR COUGH INCLUDING BENZONATATE CAPSULE, WHICH SHE HAS FINISHED. THE MAIN PROBLEM IS THAT SHE IS STILL SMOKING AND, WHEN POST FOR MORE DETAILS SHE ADMITS OF SMOKING UP TO 15 CIGARETTES A DAY. SHE DOES HAVE NICOTINE PATCHES AT HOME BUT HAS NOT USED PFSH Medical History Cough Tubular adenoma Oxygen dependent Allergic rhinitis Chronic idiopathic constipation IBS (irritable bowel syndrome) Back pain GERD (gastroesophageal reflux disease) Hyperlipidemia Depression Restrictive lung disease secondary to obesity Smoker COPD (chronic obstructive pulmonary disease) Nocturnal hypoxemia DRE (obstructive sleep apnea) Morbid obesity Surgical History Hx of colonoscopy History of esophagogastroduodenoscopy (EGD) Hx of section Hx of carpal tunnel repair History of appendectomy Family History Mother Diabetes Heart muscle disorder caused by another medical condition Father Diabetes Epilepsy Sister No problems noted. Sister No problems noted. Sister No problems noted. Sister No problems noted. Sister No problems noted. Brother No problems noted. Brother No problems noted. Brother No problems noted. Brother No problems noted. Brother No problems noted. Brother No problems noted. Daughter No problems noted. Daughter No problems noted. Son No problems noted. Son No problems noted. Son No problems noted. Social History Alcohol intake: current Alcohol intake frequency: holidays/special occasions only Patient Tobacco Use Status: Current everyday Tobacco user Cigarettes Per Day: 15 Substance Use Type: Opiates Review of Systems Const All systems reviewed & are unremarkable except as noted in HPI and below Eyes Reports no additional complaints ENT Reports no additional complaints and Reports nasal congestion (Mild intermittent) Card Denies chest pain, Denies irregular heart rhythm and Denies leg edema Resp Reports as per HPI GI Reports constipation Reports no additional complaints Musc Reports back pain Skin/Breast Reports system reviewed and no additional complaints, except as documented Neuro Reports no additional complaints Psych Reports no additional complaints Physical Exam Vital Signs: Last Vital Signs Pulse 86 03/31/23 11:14 BP 118/72 03/31/23 11:14 Pulse Ox 96 03/31/23 11:14 Oxygen Delivery Method Room Air 03/31/23 11:14 BMI result Body Mass Index 44.3 Const General: comfortable, no acute distress, alert and awake Orientation/consciousness: patient oriented x3 HEENT Head: Yes normal to inspection General nose exam: No nasal polyps present, No nasal discharge present and Other nasal findings present (She has active nasal congestion on both sides) Face and sinus: Yes sinuses nontender Mouth: oropharynx normal Throat: Yes posterior oropharynx normal Eyes General: appearance normal, both eyes and all related structures Neck Neck: Yes normal visual inspection, Yes no lymphadenopathy, Yes trachea midline and Yes no JVD Thyroid: Thyroid normal Chest Chest palpation & inspection: normal inspection of the chest, normal palpation of entire chest wall and no tenderness Resp Other: Percussion note resonant, breath sounds are distant, especially decreased over the basilar areas, with prolonged expiratory phase . However the lungs are clear on both sides and I did not hear any wheezes or crepitations. Cardio Palpation: normal PMI Rate: regular rate Rhythm: regular rhythm Heart sounds: no gallops and no murmurs GI Palpation (GI): Soft to palpation, nontender, No hepatosplenomegaly present, no masses and Other GI palpation findings present (Abdomen is moderately obese) Auscultation: normal bowel sounds Back/Spine/Pelvis Thoracic/Lumbar Spine: thoracic and lumbar spine normal to inspection and thoraco-lumbar ROM limited Skin General skin exam: no rashes or lesions noted Neuro General: patient oriented x3 and no focal motor deficits Cranial nerves: Yes CN's II-XII intact bilaterally Extrem General: Yes normal to inspection, Yes no clubbing, cyanosis or edema and Yes no calf tenderness Right lower extremity: joint enlargement noted (Right knee moderately enlarged and tender) Psych Appearance: grossly normal and well kempt Mental Status: mental status grossly normal Speech and movement: Normal speech and movement present Assessment & Plan Assessment & Plan (1) Morbid obesity: Comment: SHE REMAINS MORBIDLY OBESE, TALKED TO HER ABOUT LOSING WEIGHT. SHE HAS GONE TO WEIGHT MANAGEMENT PROGRAM BUT IS NOT REGULAR. Code(s): E66.01 - Morbid (severe) obesity due to excess calories Plan: I ENCOURAGED HER TO LOOSE WEIGHT EVEN IT IS SLOWLY COMING DOWN. IT IS GOING TO BE DIFFICULT IN HER CASE SHE HAS VERY POOR UNDERSTANDING, LOO NAVI FOR ONLY MAGIC TREATMENTS. THERE IS NOT MUCH POTENTIAL FOR HER TO LOSE WEIGHT. (2) DER (obstructive sleep apnea): Comment: KNOWN CASE OF OBSTRUCTIVE SLEEP APNEA BUT C OULD NOT TOLERATE CPAP , USES O2 2 L/MINUTE AT NIGHT, Code(s): G47.33 - Obstructive sleep apnea (adult) (pediatric) Plan: SHE IS NOT A GOOD CANDIDATE FOR USING THE CPAP. ADVISED TO CONTINUE USING O2 2 L/MINUTE AT NIGHT. (3) Nocturnal hypoxemia: Comment: NOCTURNAL HYPOXEMIA IS PART OF HER OBSTRUCTIVE SLEEP APNEA. Code(s): G47.34 - Idiopathic sleep related nonobstructive alveolar hypoventilation Plan: [place] :USE OXYGEN 2 L/MINUTE, AT NIGHT. SAYS THE CANULA DOES NOT STAY IN HER NOSE ALL THE NIGHT I INSTRUCTED HER TO MAKE SURE THE CANNULA STAYS IN PLACE, MAY HAVE TO PUT A PIECE OF TAPE. (4) COPD (chronic obstructive pulmonary disease): Comment: COPD IS RELATED TO HER SMOKING, SYMPTOMS ESPECIALLY COUGH ARE BEING PROVOKED BY ONGOING SMOKING. Code(s): J44.9 - Chronic obstructive pulmonary disease, unspecified Plan: [place] : ADVAIR HFA 115/21 2 PUFFS B.I.D., SCRIPT RENEWED. COMBIVENT RESPIMAT 1 INHALATION Q 6 HOURS ( AT LEAST TID ) PROAIR HFA 2 PUFFS Q 4-6 HOURS P.R.N. FOR ACUTE WHEEZING . (5) Restrictive lung disease secondary to obesity: Comment: RESTRICTIVE LUNG DISORDER IS MAINLY BECAUSE OF HER MORBID OBESITY. PATIENT IS EDUCATED ABOUT THIS PROBLEM. Code(s): J98.4 - Other disorders of lung; E66.9 - Obesity, unspecified Plan: SHE IS INSTRUCTED TO DO DEEP BREATHING EXERCISES 2 OR 3 TIMES A DAY. (6) Smoker: Comment: PATIENT HAS PAST HISTORY OF SMOKING. QUIT FOR ONLY 1 YEAR AND THEN WENT BACK TO SMOKING. CURRENTLY ADMITS OF SMOKING 15 CIGARETTES A DAY. SHE DOES HAVE NICOTINE PATCH IS AT HOME BUT DOES NOT USE. Code(s): F17.200 - Nicotine dependence, unspecified, uncomplicated Plan: I EXPLAINED TO HER AND HER SON THAT THE ONGOING COUGH IS MOSTLY DUE TO CONTINUED SMOKING. THIS WAS NOT GET BETTER ON LESS SHE WAS ABLE TO QUIT SMOKING. NO NEED OF USING ANY STRONG COUGH SUPPRESSANT MEDICATION. SHE IS ADVISED TO START USING THE NICOTINE PATCH EVERY DAY 14 MG WHICH SHE SAY IS SHE HAS AT HOME. SHE MUST TRY HER BEST TO QUIT SMOKING COMPLETELY. (7) Allergic rhinitis: Comment: SHE HAS CHRONIC ALLERGIC RHINITIS, WHICH FLARES UP OFF AND ON Code(s): J30.9 - Allergic rhinitis, unspecified Plan: [place]: CONTINUE MONTELUKAST 10 MG DAILY. USE ZYRTEC 10 MG ONCE A DAY P.R.N.. (8) Cough: Comment: HER COUGH IS MOSTLY SECONDARY TO ALLERGIC RHINOSINUSITIS AND SMOKING . SHE WAS EXPLAINED THAT DOES NOT SEEM TO HAVE ANY INFECTION IN THE LUNGS. Code(s): R05.9 - Cough, unspecified Plan: EXPLAINED THOROUGHLY THAT HER COUGH IS MOSTLY DUE TO SMOKING. CHRONIC ALLERGIC RHINITIS ALSO CONTRIBUTE TO COUGH. Plan THE MOST IMPORTANT STEP IS TO QUIT SMOKING. SHE IS GOING TO DO HER BEST. I WILL CHECK HER BACK IN 2 MONTHS. Coding Level of Care Code Est Pt Level 4 (92008) Diagnoses Morbid obesity E66.01 DRE (obstructive sleep apnea) G47.33 Nocturnal hypoxemia G47.34 COPD (chronic obstructive pulmonary disease) J44.9 Restrictive lung disease secondary to obesity J98.4; E66.9 Smoker F17.200 Allergic rhinitis J30.9 Cough R05.9
== END 2023-03-31 11:39 | disposition home or self-care (01) ==
PROVIDERS: PCP Internal Medicine Geriatric Medicine; Referring Provider Internal Medicine Geriatric Medicine; Visit Provider Internal Medicine
DX: E66.01 Morbid (severe) obesity due to excess calories (principal); G47.33 Obstructive sleep apnea (adult) (pediatric); G47.34 Idiopathic sleep related nonobstructive alveolar hypoventilation; J44.9 Chronic obstructive pulmonary disease, unspecified; J98.4 Other disorders of lung; E66.9 Obesity, unspecified; F17.200 Nicotine dependence, unspecified, uncomplicated; J30.9 Allergic rhinitis, unspecified; R05.9 Cough, unspecified
CPT/HCPCS: 99214

== ENCOUNTER → 2023-03-31 10:54 | Outpatient (BNVA) | payer MEDICAID, SELFPAY | PROVIDERS: PCP Internal Medicine Geriatric Medicine; Visit Provider Internal Medicine | DX: J44.9 Chronic obstructive pulmonary disease, unspecified (principal); J98.4 Other disorders of lung; J30.9 Allergic rhinitis, unspecified; E66.01 Morbid (severe) obesity due to excess calories; R05.9 Cough, unspecified; G47.33 Obstructive sleep apnea (adult) (pediatric); G47.34 Idiopathic sleep related nonobstructive alveolar hypoventilation; F17.210 Nicotine dependence, cigarettes, uncomplicated | CPT/HCPCS: 99212 ==

== ENCOUNTER 2023-04-01 08:51 | Outpatient (REF) | payer MEDICAID, SELFPAY ==
--- NOTE | ~2023-04-01 | XR_ITS ---
EXAMINATION: XR CHEST CLINICAL INFORMATION: Persistent cough. Status post Covid infection 1 month ago. COMPARISON: 06/22/2022 TECHNIQUE: 2 views of the chest were obtained. FINDINGS: The lungs are well expanded. No focal consolidation. No pleural effusion. Cardiac silhouette is unchanged. XR/XR chest 2V IMPRESSION: No acute abnormality.
== END 2023-04-01 08:52 | disposition home or self-care (01) ==
LOC: HO.HHCX 08:51
PROVIDERS: Visit Provider Internal Medicine
DX: J44.1 Chronic obstructive pulmonary disease with (acute) exacerbation (principal)
CPT/HCPCS: 71046

== ENCOUNTER 2023-04-06 12:07 | Outpatient (REF) | payer MEDICAID, SELFPAY ==
--- NOTE | ~2023-04-06 | XR_ITS ---
EXAMINATION: XR LUMBOSACRAL SPINE CLINICAL INFORMATION: Fall in shower, L5-S1 pain COMPARISON: 02/07/2023 TECHNIQUE: Three views of the lumbosacral spine. FINDINGS: Mild anterior wedging L4 is stable. Thoracolumbar spurring again seen. No acute fracture recognized. Pedicles are intact. Mild inferior left SI sclerosis again seen. Vascular calcifications and pelvic clips. XR/XR lumbar spine 2-3V IMPRESSION: No acute bony pathology.
== END 2023-04-06 12:08 | disposition home or self-care (01) ==
LOC: HO.HHCX 12:07
PROVIDERS: Visit Provider Nurse Practitioner Family
DX: M54.9 Dorsalgia, unspecified (principal)
CPT/HCPCS: 72100

== ENCOUNTER 2023-04-13 17:37 | Outpatient (REF) | payer MEDICAID, SELFPAY ==
[2023-04-15 17:33] LABS: C. trachomatis RNA TMA NOT DETECTED (NOT DETECTED); Candida glabrata RNA NOT DETECTED (NOT DETECTED); Candida species RNA NOT DETECTED (NOT DETECTED); N. gonorrhoeae RNA TMA NOT DETECTED (NOT DETECTED); Trichomonas vaginalis RNA NOT DETECTED (NOT DETECTED)
== END 2023-04-13 17:38 | disposition home or self-care (01) ==
LOC: HO.HHCLNP 17:37
PROVIDERS: Visit Provider Emergency Medicine
DX: N90.5 Atrophy of vulva (principal); R30.9 Painful micturition, unspecified
CPT/HCPCS: 36415; 81513; 87086; 87481; 87491; 87591; 87661

== ENCOUNTER 2023-05-12 09:32 | Outpatient (REF) | payer MEDICAID, SELFPAY ==
--- NOTE | ~2023-05-12 | XR_ITS ---
EXAMINATION: XR SHOULDER, LEFT CLINICAL INFORMATION: Shoulder pain after fall one month ago COMPARISON: None available. TECHNIQUE: Three views of the left shoulder. FINDINGS: The bones and soft tissues are normal. No fracture. Glenohumeral and acromioclavicular alignment is anatomic with normal joint space. No abnormal soft tissue calcifications. XR/XR shoulder LT min 2V IMPRESSION: Normal left shoulder.
--- NOTE | ~2023-05-12 | XR_ITS ---
EXAMINATION: XR CERVICAL SPINE CLINICAL INFORMATION: Left cervical radiculopathy and left shoulder pain. COMPARISON: 10/03/2020 TECHNIQUE: 3 views of the cervical spine were obtained. FINDINGS: The craniocervical junction is normal. The dens and atlantodental articulation are intact. The cervical vertebra have normal height and alignment. No fracture, subluxation or prevertebral soft tissue swelling. The spinal curvature is normal. The disc spaces are well-preserved. An old small focus of anterior ligament ossification is present at C6-C7. Chronic minimal osteophyte vertebral formation at this level. The facet joints are unremarkable. The visualized lung apices are normal. XR/XR cervical spine 3V IMPRESSION: There is chronic mild spondylosis at C6-C7. No acute radiographic abnormalities within the cervical spine.
== END 2023-05-12 09:33 | disposition home or self-care (01) ==
LOC: HO.HHCX 09:32
PROVIDERS: Visit Provider Family Medicine
DX: M25.512 Pain in left shoulder (principal); M54.12 Radiculopathy, cervical region; Z91.81 History of falling
CPT/HCPCS: 72040; 73030

== ENCOUNTER 2023-05-26 08:24 | Outpatient (REF) | payer MEDICAID, SELFPAY ==
--- NOTE | ~2023-05-26 | XR_ITS ---
EXAMINATION: XR RIBS, LEFT CLINICAL INFORMATION: Left rib pain after fall 6 weeks ago. COMPARISON: Chest x-ray 04/01/23. TECHNIQUE: Frontal view of the chest and 3 views of the left ribs were obtained. FINDINGS: Lungs are hypoexpanded but otherwise clear. No consolidation, pneumothorax, or pleural effusion. The cardiomediastinal silhouette and pulmonary vasculature are normal. No visible rib fracture. XR/XR ribs LT min 3V w CXR1V IMPRESSION: No visible rib fracture. No pleural effusion or pneumothorax.
[2023-05-26 11:29] LABS: MANUAL DIFF FLAG NO
[2023-05-26 11:48] LABS: Basophils Absolute Auto 0.1 X10*3/uL (0.0-0.2); Basophils Percent Auto 0.8 % (0-2); Eosinophils Absolute Auto 0.1 X10*3/uL (0.0-0.4); Eosinophils Percent Auto 0.8 % (0-4); Hematocrit 44.4 % (37.0-47.0); Hemoglobin 14.1 g/dl (12.0-16.0); Imm Gran Abs Auto 0.01 X10*3/uL (0.00-0.03); Imm Gran Pct Auto 0.2 % (0.0-0.4); Lymphocytes Absolute Auto 1.7 X10*3/uL (1.2-4.9); Lymphocytes Percent Auto 27.7 % (20-40); Mean Corpuscular HGB Conc 31.8 g/dl (31.0-35.0); Mean Corpuscular Hemoglobin 27.4 pg (27.0-33.0); Mean Corpuscular Volume 86.4 fL (80.0-98.0); Mean Platelet Volume 13.8 fL (9.4-12.3); Monocytes Absolute Auto 0.4 X10*3/uL (0.1-1.2); Monocytes Percent Auto 6.7 % (2-11); Neutrophils Absolute Auto 3.9 x10*3/uL (2.0-8.3); Neutrophils Percent Auto 63.8 % (45-73); Platelet Count 141 X10*3/uL (160-400); Red Blood Count 5.14 X10*6/uL (4.20-5.50); Red Cell Distribution Width 13.5 % (11.0-16.0); White Blood Count 6.1 X10*3/uL (4.8-10.8)
[2023-05-26 11:59] LABS: Alanine Aminotransferase 30 U/L (0-31); Albumin Level 4.1 g/dL (3.5-5.0); Alkaline Phosphatase 96 U/L (39-117); Anion Gap 12 (12-20); Aspartate Amino Transferase 29 U/L (5-31); Bilirubin Total 0.6 mg/dL (0.0-1.0); Blood Urea Nitrogen 16 mg/dL (9-16); Calcium 9.7 mg/dL (8.4-10.2); Carbon Dioxide 25 mmol/L (22-29); Chloride 104 mmol/L (96-108); Cholesterol 193 mg/dL (<200); Estimated Glomerular Filt Rate > 60; Glucose Random 162 mg/dL (60-115); HDL Cholesterol 45 mg/dL (>40); LDL Cholesterol Calculated 111 mg/dL (<100); Potassium 4.2 mmol/L (3.3-5.1); Sodium 137 mmol/L (135-145); Total Protein 7.1 g/dL (6.5-8.0); Triglycerides 189 mg/dL (<150)
[2023-05-26 12:06] LABS: Creatinine Urine 185.88 mg/dL; Microalbum/Creatinine Ratio Ur 12.3 ug/mg cr (<30)
== END 2023-05-26 08:25 | disposition home or self-care (01) ==
LOC: HO.HHCL 08:24
PROVIDERS: Visit Provider Internal Medicine Geriatric Medicine
DX: E11.69 Type 2 diabetes mellitus with other specified complication (principal); G89.4 Chronic pain syndrome; M54.50 Low back pain, unspecified; R07.81 Pleurodynia; Z79.4 Long term (current) use of insulin
CPT/HCPCS: 36415; 71101; 80053; 80061; 82043; 82570; 85025

== ENCOUNTER 2023-06-03 08:26 | Outpatient (REF) | payer MEDICAID, SELFPAY ==
--- NOTE | ~2023-06-03 | MM_ITS ---
EXAMINATION: MM SCREENING DIGITAL BREAST TOMOSYNTHESIS, BILATERAL CLINICAL INFORMATION: Screening. Asymptomatic. COMPARISON: Mammography: This study is compared with prior exams dating back to 2017. TECHNIQUE: Digital breast tomosynthesis is performed in both the craniocaudal and mediolateral oblique views along with computer-aided detection (CAD). Synthesized 2D images are generated from the tomosynthesis. FINDINGS: The breasts are almost entirely fatty (ACR BI-RADS breast composition Category a). There are no significant masses, abnormal calcifications, or other abnormalities. MM/MM tomosynthesis screening BI IMPRESSION: No mammographic evidence of malignancy. ASSESSMENT: BI-RADS BI-RADS 1 - Negative RECOMMENDATION: Routine annual mammography screening. 1 year F/U This examination should not preclude the clinical evaluation of a suspicious palpable abnormality. This patient's information was entered into a reminder system with a target due date for their next mammogram.
== END 2023-06-03 08:27 | disposition home or self-care (01) ==
LOC: HO.MAMMO 08:26
PROVIDERS: PCP Internal Medicine Geriatric Medicine; Visit Provider Internal Medicine Geriatric Medicine
DX: Z12.31 Encounter for screening mammogram for malignant neoplasm of breast (principal)
CPT/HCPCS: 77063; 77067

== ENCOUNTER → 2023-06-03 08:45 | Outpatient (BNV) | payer MEDICAID, SELFPAY | PROVIDERS: PCP Internal Medicine Geriatric Medicine; Visit Provider Radiology Diagnostic Radiology | DX: Z12.31 Encounter for screening mammogram for malignant neoplasm of breast (principal) | CPT/HCPCS: 77063; 77067 ==

== ENCOUNTER 2023-06-22 09:47 | Outpatient (AMB) | payer MEDICAID, SELFPAY ==
--- NOTE | 2023-06-22 09:53 | MHC.OFFVIS ---
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 She complains of pain in the left arm that radiates to the shoulder as well as lower back pain. She is taking Oxycodone due to other concerns, she also takes Tylenol and Gabapentin. Allergies penicillin G [Penicillin G] Allergy (Mild, Verified 06/22/23 09:58) SWELLING barium sulfate [ORAL CONTRAST] Allergy (Unknown, Verified 06/22/23 09:58) HIVES Medication List - Last Reconciled 06/22/23 by Ivett Gibbs MD albuterol sulfate 90 mcg/actuation (ProAir HFA) 2 puffs PO Q4-6H PRN albuterol sulfate 2.5 mg (3 mL) inhalation Q4-6H PRN 30 days alcohol swabs (Alcohol Prep Pads) pad topical BID aspirin 1 tab PO QPM atorvastatin 80 mg PO QPM buspirone 15 mg PO BID cetirizine (Zyrtec) 10 mg PO DAILY PRN 14 days clonidine HCl 0.1 mg PO BEDTIME dulaglutide (Trulicity) 3 mg subcut QWEEK esomeprazole magnesium (Nexium) 40 mg PO BID 90 days fluticasone propion-salmeterol 115-21 mcg/actuation (Advair HFA) 2 puffs inhalation Q12H 30 days gabapentin 300 mg PO TID haloperidol 1 mg PO BEDTIME insulin glargine (Lantus Solostar U-100 Insulin) 28 units subcut DAILY insulin lispro (Humalog KwikPen U-200 Insulin) units subcut ipratropium-albuterol 20-100 mcg/actuation (Combivent Respimat) 1 puff PO Q6H lidocaine 5% 1 patch topical DAILY linaclotide (Linzess) 290 mcg PO QAM metformin ER 500 mg PO QPM metoprolol succinate ER 25 mg PO DAILY montelukast (Singulair) 10 mg PO BEDTIME multivitamin (One Daily Multivitamin tablet) 1 tab PO QAM nortriptyline 10 mg PO BEDTIME ondansetron 4 mg PO DAILY PRN oxcarbazepine 450 mg PO BID oxycodone 10 mg PO Q12H PRN paroxetine HCl 40 mg PO BEDTIME pen needle, diabetic (Pentips) As directed polyethylene glycol 3350 (Miralax) 17 grams PO DAILY pyridoxine (vitamin B6) 100 mg PO DAILY 90 days sertraline 100 mg PO DAILY simvastatin 20 mg PO BEDTIME sucralfate 1 g PO BEDTIME tamsulosin 0.4 mg PO QAM HPI Comments Details: Here with daughter who helped with translation. Patient fell while going up stairs in March. Frequent falls but that was the last fall. She admits to chronic pain all over but this new pain is on left arm. From left elbow, medial area, radiating upwards. Hard to keep elbow extended due to pain. Tinglng on forearm. Painful with grabbing but denies weakness. No new neck pain. Uses walker baseline. Treatment done so far: pain medications, chronic - Oxycodone topical meds no PT yet since fall PFSH Medical History Cough Tubular adenoma Oxygen dependent Allergic rhinitis Chronic idiopathic constipation IBS (irritable bowel syndrome) Back pain GERD (gastroesophageal reflux disease) Hyperlipidemia Depression Restrictive lung disease secondary to obesity Smoker COPD (chronic obstructive pulmonary disease) Nocturnal hypoxemia DRE (obstructive sleep apnea) Morbid obesity Surgical History Hx of colonoscopy History of esophagogastroduodenoscopy (EGD) Hx of section Hx of carpal tunnel repair History of appendectomy Family History Mother Diabetes Heart muscle disorder caused by another medical condition Father Diabetes Epilepsy Sister No problems noted. Sister No problems noted. Sister No problems noted. Sister No problems noted. Sister No problems noted. Brother No problems noted. Brother No problems noted. Brother No problems noted. Brother No problems noted. Brother No problems noted. Brother No problems noted. Daughter No problems noted. Daughter No problems noted. Son No problems noted. Son No problems noted. Son No problems noted. Social History Alcohol intake: current Alcohol intake frequency: holidays/special occasions only Patient Tobacco Use Status: Current everyday Tobacco user Cigarettes Per Day: 15 Substance Use Type: Opiates Review of Systems Const All systems reviewed & are unremarkable except as noted in HPI and below Physical Exam Constitutional: Patient appears to be in no acute distress, well nourished and well developed. MSK: Inspection reveals appropriate head and neck positioning. No pain with palpation over the neck musculature. Cervical ROM was full. Spurling's sign negative. Bilateral shoulder ROM WNL. No ligamentous laxity or crepitance. No increased effusion. Hawkin's test is negative. No joint effusion noted. No deformity noted. No intrinsic hand weakness noted. No atrophy noted. Tarsha test negative. Carpal compression test negative. Tinel sign negative. Tender left medial epicondyle. Increased pain with resisted wrist flexion. Strength is 5/5 in all muscle groups tested. No increased tone noted. Neurological: Neurologic examination of the upper and lower extremities was nonfocal with intact sensation, muscle stretch reflexes and without focal motor deficits . Angel?s negative bilaterally. Gait is non-antalgic without loss of balance. Results Reviewed Results Reviewed: Ordering Physician: Kiel Shaffer MD Date of Service: 05/26/23 Procedure(s): XR ribs LT min 3V w CXR1V Accession Number(s): [id number] cc: Kiel Shaffer MD~ EXAMINATION: XR RIBS, LEFT CLINICAL INFORMATION: Left rib pain after fall 6 weeks ago. COMPARISON: Chest x-ray 04/01/23. TECHNIQUE: Frontal view of the chest and 3 views of the left ribs were obtained. FINDINGS: Lungs are hypoexpanded but otherwise clear. No consolidation, pneumothorax, or pleural effusion. The cardiomediastinal silhouette and pulmonary vasculature are normal. No visible rib fracture. XR/XR ribs LT min 3V w CXR1V IMPRESSION: No visible rib fracture. No pleural effusion or pneumothorax. Ordering Physician: Alexandra Pope MD Date of Service: 05/12/23 Procedure(s): XR shoulder LT min 2V Accession Number(s): [id number] cc: Alexandra Pope MD~ EXAMINATION: XR SHOULDER, LEFT CLINICAL INFORMATION: Shoulder pain after fall one month ago COMPARISON: None available. TECHNIQUE: Three views of the left shoulder. FINDINGS: The bones and soft tissues are normal. No fracture. Glenohumeral and acromioclavicular alignment is anatomic with normal joint space. No abnormal soft tissue calcifications. XR/XR shoulder LT min 2V IMPRESSION: Normal left shoulder. Ordering Physician: Alexandra Pope MD Date of Service: 05/12/23 Procedure(s): XR cervical spine 3V Accession Number(s): [id number] cc: Alexandra Pope MD~ EXAMINATION: XR CERVICAL SPINE CLINICAL INFORMATION: Left cervical radiculopathy and left shoulder pain. COMPARISON: 10/03/2020 TECHNIQUE: 3 views of the cervical spine were obtained. FINDINGS: The craniocervical junction is normal. The dens and atlantodental articulation are intact. The cervical vertebra have normal height and alignment. No fracture, subluxation or prevertebral soft tissue swelling. The spinal curvature is normal. The disc spaces are well-preserved. An old small focus of anterior ligament ossification is present at C6-C7. Chronic minimal osteophyte vertebral formation at this level. The facet joints are unremarkable. The visualized lung apices are normal. XR/XR cervical spine 3V IMPRESSION: There is chronic mild spondylosis at C6-C7. No acute radiographic abnormalities within the cervical spine. Ordering Physician: Anisha Gonzalez NP Date of Service: 04/06/23 Procedure(s): XR lumbar spine 2-3V Accession Number(s): [id number] cc: Anisha Gonzalez DIAMOND SETTER~ EXAMINATION: XR LUMBOSACRAL SPINE CLINICAL INFORMATION: Fall in shower, L5-S1 pain COMPARISON: 02/07/2023 TECHNIQUE: Three views of the lumbosacral spine. FINDINGS: Mild anterior wedging L4 is stable. Thoracolumbar spurring again seen. No acute fracture recognized. Pedicles are intact. Mild inferior left SI sclerosis again seen. Vascular calcifications and pelvic clips. XR/XR lumbar spine 2-3V IMPRESSION: No acute bony pathology. Assessment & Plan Assessment & Plan (1) Medial epicondylitis, left elbow: Code(s): M77.02 - Medial epicondylitis, left elbow Category: Medical Plan Chronic pain all over. Fell in March. Continues to have pain on right medial elbow, suspect medial epicondylitis/common flexor tendinosis. Advised to wear counterforce brace during the day. We will do elbow x-ray to make sure no acute changes. Referring to OT. Assessment and plan discussed with patient, and patient was agreeable. All questions were answered thoroughly. Follow-up 3 months. Ivett Gibbs MD, ROBERTO Board Certified, [place] [employer] and [employer] (ABPMR) Board Certified, [place] [employer] (ABEM) Orders: Orders OT Evaluation and Treatment Today M77.02 - Medial epicondylitis, left elbow Coding Level of Care Code New Pt Level 4 (55999) Diagnoses Medial epicondylitis, left elbow M77.02
== END 2023-06-22 11:40 | disposition home or self-care (01) ==
PROVIDERS: PCP Internal Medicine Geriatric Medicine; Referring Provider Internal Medicine Geriatric Medicine; Visit Provider Physical Medicine & Rehabilitation
DX: M77.02 Medial epicondylitis, left elbow (principal)
CPT/HCPCS: 99204

== ENCOUNTER 2023-06-22 09:47 | Outpatient (REF) | payer MEDICAID, SELFPAY ==
--- NOTE | ~2023-06-22 | XR_ITS ---
EXAMINATION: XR ELBOW, LEFT CLINICAL INFORMATION: Left elbow medial epicondylitis. COMPARISON: None available. TECHNIQUE: AP, lateral, and oblique views of the left elbow. FINDINGS: Minimal spurring along the dorsal aspect of the olecranon and along the coronoid. Alignment preserved. No displaced fracture appreciated. XR/XR elbow LT min 3V IMPRESSION: Minimal degenerative changes. No displaced fracture. Recommend follow-up imaging in 10-14 days if fracture is suspected.
== END 2023-06-22 09:48 | disposition home or self-care (01) ==
LOC: HO.HOSX 09:47
PROVIDERS: PCP Internal Medicine Geriatric Medicine; Visit Provider Physical Medicine & Rehabilitation
DX: M77.02 Medial epicondylitis, left elbow (principal)
CPT/HCPCS: 73080; 99202

== ENCOUNTER 2023-06-30 10:39 | Outpatient (AMB) | payer MEDICAID, SELFPAY ==
[2023-06-30 11:09] VITALS: BP 112/70; PULSE 79; O2SAT 97; BMI 44.4
--- NOTE | 2023-06-30 11:09 | MHC.OFFVIS ---
Vital Signs 06/30/23 11:09 Height 5 ft 2 in Weight 242 lb 8.136 oz BMI 44.4 BP 112/70 Blood Pressure Location Lt brachial Position Sitting Pulse 79 Pulse Source Pulse Oximeter Pulse Oximetry (%) 97 Oxygen Delivery Method Room Air Intake Visit Reasons: Asthma Intake Note: pt is here for follow up and states she does feel short of breath with walking, and using oxygen at night, Certification Engineer Required: No Allergies penicillin G [Penicillin G] Allergy (Mild, Verified 06/30/23 11:24) SWELLING barium sulfate [ORAL CONTRAST] Allergy (Unknown, Verified 06/30/23 11:24) HIVES Medication List - Last Reconciled 06/30/23 by Caryl Churchill MD albuterol sulfate 90 mcg/actuation (ProAir HFA) 2 puffs PO Q4-6H PRN albuterol sulfate 2.5 mg (3 mL) inhalation Q4-6H PRN 30 days alcohol swabs (Alcohol Prep Pads) pad topical BID aspirin 1 tab PO QPM atorvastatin 80 mg PO QPM buspirone 15 mg PO BID cetirizine (Zyrtec) 10 mg PO DAILY PRN 14 days clonidine HCl 0.1 mg PO BEDTIME dulaglutide (Trulicity) 3 mg subcut QWEEK esomeprazole magnesium (Nexium) 40 mg PO BID 90 days fluticasone propion-salmeterol 115-21 mcg/actuation (Advair HFA) 2 puffs inhalation Q12H 30 days gabapentin 300 mg PO TID haloperidol 1 mg PO BEDTIME insulin glargine (Lantus Solostar U-100 Insulin) 28 units subcut DAILY insulin lispro (Humalog KwikPen U-200 Insulin) units subcut ipratropium-albuterol 20-100 mcg/actuation (Combivent Respimat) 1 puff PO Q6H lidocaine 5% 1 patch topical DAILY linaclotide (Linzess) 290 mcg PO QAM metformin ER 500 mg PO QPM metoprolol succinate ER 25 mg PO DAILY montelukast (Singulair) 10 mg PO BEDTIME multivitamin (One Daily Multivitamin tablet) 1 tab PO QAM nortriptyline 10 mg PO BEDTIME ondansetron 4 mg PO DAILY PRN oxcarbazepine 450 mg PO BID oxycodone 10 mg PO Q12H PRN paroxetine HCl 40 mg PO BEDTIME pen needle, diabetic (Pentips) As directed polyethylene glycol 3350 (Miralax) 17 grams PO DAILY pyridoxine (vitamin B6) 100 mg PO DAILY 90 days sertraline 100 mg PO DAILY simvastatin 20 mg PO BEDTIME sucralfate 1 g PO BEDTIME tamsulosin 0.4 mg PO QAM Do you need a note to return to daycare/school/sports/work: No HPI HPI Asthma: Details: SHITAL Jeronimo 57 YEARS OLD FEMALE IS HERE FOR FOLLOW-UP AFTER 6 MONTHS. SHE IS A SMOKER, CONTINUES TO SMOKE ABOUT HALF PACK OF CIGARETTES A DAY, COMPLAINS OF INTERMITTENT COUGH WHICH IS MOSTLY DRY, AND ALSO HAS INTERMITTENT WHEEZES. SHE GETS SHORT OF BREATH WHEN SHE WALKS UP HILL OR CLIMBS STAIRS. SHE REMAINS OVERLY OBESE. SHE HAS DIAGNOSIS OF OBSTRUCTIVE SLEEP APNEA BUT COULD NOT USE CPAP. FOR NOCTURNAL HYPOXEMIA SHE USES O2 2 L/MINUTE AT NIGHT . [facility] Medical History Cough Tubular adenoma Oxygen dependent Allergic rhinitis Chronic idiopathic constipation IBS (irritable bowel syndrome) Back pain GERD (gastroesophageal reflux disease) Hyperlipidemia Depression Restrictive lung disease secondary to obesity Smoker COPD (chronic obstructive pulmonary disease) Nocturnal hypoxemia DRE (obstructive sleep apnea) Morbid obesity Surgical History Hx of colonoscopy History of esophagogastroduodenoscopy (EGD) Hx of section Hx of carpal tunnel repair History of appendectomy Family History Mother Diabetes Heart muscle disorder caused by another medical condition Father Diabetes Epilepsy Sister No problems noted. Sister No problems noted. Sister No problems noted. Sister No problems noted. Sister No problems noted. Brother No problems noted. Brother No problems noted. Brother No problems noted. Brother No problems noted. Brother No problems noted. Brother No problems noted. Daughter No problems noted. Daughter No problems noted. Son No problems noted. Son No problems noted. Son No problems noted. Social History Alcohol intake: current Alcohol intake frequency: holidays/special occasions only Patient Tobacco Use Status: Current everyday Tobacco user Cigarettes Per Day: 15 Substance Use Type: Opiates Review of Systems Const All systems reviewed & are unremarkable except as noted in HPI and below Eyes Reports no additional complaints ENT Reports no additional complaints and Reports nasal congestion (Mild intermittent) Card Denies chest pain, Denies irregular heart rhythm and Denies leg edema Resp Reports as per HPI GI Reports constipation Reports no additional complaints Musc Reports back pain Skin/Breast Reports system reviewed and no additional complaints, except as documented Neuro Reports no additional complaints Psych Reports no additional complaints Physical Exam Vital Signs: Last Vital Signs Pulse 79 06/30/23 11:09 BP 112/70 06/30/23 11:09 Pulse Ox 97 06/30/23 11:09 Oxygen Delivery Method Room Air 06/30/23 11:09 BMI result Body Mass Index 44.4 Const General: comfortable, no acute distress, alert and awake Orientation/consciousness: patient oriented x3 HEENT Head: Yes normal to inspection General nose exam: No nasal polyps present, No nasal discharge present and Other nasal findings present (She has active nasal congestion on both sides) Face and sinus: Yes sinuses nontender Mouth: oropharynx normal Throat: Yes posterior oropharynx normal Eyes General: appearance normal, both eyes and all related structures Neck Neck: Yes normal visual inspection, Yes no lymphadenopathy, Yes trachea midline and Yes no JVD Thyroid: Thyroid normal Chest Chest palpation & inspection: normal inspection of the chest, normal palpation of entire chest wall and no tenderness Resp Other: Percussion note resonant, breath sounds are distant, especially decreased over the basilar areas, with prolonged expiratory phase . However the lungs are clear on both sides and I did not hear any wheezes or crepitations. Cardio Palpation: normal PMI Rate: regular rate Rhythm: regular rhythm Heart sounds: no gallops and no murmurs GI Palpation (GI): Soft to palpation, nontender, No hepatosplenomegaly present, no masses and Other GI palpation findings present (Abdomen is moderately obese) Auscultation: normal bowel sounds Back/Spine/Pelvis Thoracic/Lumbar Spine: thoracic and lumbar spine normal to inspection and thoraco-lumbar ROM limited Skin General skin exam: no rashes or lesions noted Neuro General: patient oriented x3 and no focal motor deficits Cranial nerves: Yes CN's II-XII intact bilaterally Extrem General: Yes normal to inspection, Yes no clubbing, cyanosis or edema and Yes no calf tenderness Right lower extremity: joint enlargement noted (Right knee moderately enlarged and tender) Psych Appearance: grossly normal and well kempt Mental Status: mental status grossly normal Speech and movement: Normal speech and movement present Assessment & Plan Assessment & Plan (1) Morbid obesity: Comment: SHE REMAINS MORBIDLY OBESE, TALKED TO HER ABOUT LOSING WEIGHT. SHE HAS GONE TO WEIGHT MANAGEMENT PROGRAM BUT IS NOT REGULAR. SHE HAS RELATIVELY POOR UNDERSTANDING. Code(s): E66.01 - Morbid (severe) obesity due to excess calories Category: Medical Plan: AGAIN DISCUSSED WITH HER ABOUT WEIGHT MANAGEMENT. ADVISED TO CUT DOWN THE INTAKE OF CARBOHYDRATES. AND DO SOME WALKING EVERY DAY. * ABILITY AND POTENTIAL TO LOSE WEIGHT IS MINIMAL. (2) DRE (obstructive sleep apnea): Comment: KNOWN CASE OF OBSTRUCTIVE SLEEP APNEA BUT C OULD NOT TOLERATE CPAP , USES O2 2 L/MINUTE AT NIGHT, Code(s): G47.33 - Obstructive sleep apnea (adult) (pediatric) Category: Medical Plan: SHE HAS TO LOSE WEIGHT. CONTINUE TO USE O2 2 L/MINUTE AT NIGHT . (3) Nocturnal hypoxemia: Comment: NOCTURNAL HYPOXEMIA IS PART OF HER OBSTRUCTIVE SLEEP APNEA AND SLEEP-RELATED HYPOVENTILATION TO RE CERTIFY OXYGEN AT NIGHT, OVERNIGHT OXIMETRY RECORDING IS ORDERED. Code(s): G47.34 - Idiopathic sleep related nonobstructive alveolar hypoventilation Category: Medical Plan: OVERNIGHT OXIMETRY RECORDING IS ORDERED (4) COPD (chronic obstructive pulmonary disease): Comment: COPD IS RELATED TO HER SMOKING, SYMPTOMS ESPECIALLY COUGH ARE BEING PROVOKED BY ONGOING SMOKING. Code(s): J44.9 - Chronic obstructive pulmonary disease, unspecified Category: Medical Plan: CONTINUE ADVAIR HFA 115-212 PUFFS B.I.D.. ALBUTEROL SOLUTION IN THE NEBULIZER Q 4-6 HOURS P.R.N.. ALBUTEROL HFA 2 PUFFS Q 4-6 HOURS P.R.N. FOR OUTDOORS. (5) Restrictive lung disease secondary to obesity: Comment: RESTRICTIVE LUNG DISORDER IS MAINLY BECAUSE OF HER MORBID OBESITY. PATIENT IS EDUCATED ABOUT THIS PROBLEM. Code(s): J98.4 - Other disorders of lung; E66.9 - Obesity, unspecified Category: Medical Plan: TRY TO LOSE WEIGHT AND DO BREATHING EXERCISES 2 TO 3 TIMES A DAY (6) Smoker: Comment: PATIENT HAS PAST HISTORY OF SMOKING. QUIT FOR ONLY 1 YEAR AND THEN WENT BACK TO SMOKING. SHE IS STILL SMOKING ABOUT 10-15 CIGARETTES A DAY. WE HAVE PRESCRIBED NICOTINE PATCH IN THE PAST BUT SHE HAS NOT BEEN USING IT REGULARLY. C Code(s): F17.200 - Nicotine dependence, unspecified, uncomplicated Category: Social Hx Plan: AGAIN TALKED TO HER ABOUT SMOKING AND COUNSELED TO QUIT. BECAUSE OF ONGOING SMOKING SHE SHOULD BE IN ANNUAL LUNG SCREENING PROGRAM FOR WHICH SHE IS BEING REFERRED. Orders: Referrals Thoracic/General Surgery Referral F17.200 - Nicotine dependence, unspecified, uncomplicated Coding Level of Care Code Est Pt Level 4 (34075) Diagnoses Morbid obesity E66.01 DRE (obstructive sleep apnea) G47.33 Nocturnal hypoxemia G47.34 COPD (chronic obstructive pulmonary disease) J44.9 Restrictive lung disease secondary to obesity J98.4; E66.9 Smoker F17.200
== END 2023-06-30 11:32 | disposition home or self-care (01) ==
PROVIDERS: PCP Internal Medicine Geriatric Medicine; Visit Provider Internal Medicine
DX: E66.01 Morbid (severe) obesity due to excess calories (principal); G47.33 Obstructive sleep apnea (adult) (pediatric); G47.34 Idiopathic sleep related nonobstructive alveolar hypoventilation; J44.9 Chronic obstructive pulmonary disease, unspecified; J98.4 Other disorders of lung; E66.9 Obesity, unspecified; F17.200 Nicotine dependence, unspecified, uncomplicated
CPT/HCPCS: 99214

== ENCOUNTER → 2023-06-30 10:39 | Outpatient (BNVA) | payer MEDICAID, SELFPAY | PROVIDERS: PCP Internal Medicine Geriatric Medicine; Visit Provider Internal Medicine | DX: J44.9 Chronic obstructive pulmonary disease, unspecified (principal); J98.4 Other disorders of lung; G47.33 Obstructive sleep apnea (adult) (pediatric); G47.34 Idiopathic sleep related nonobstructive alveolar hypoventilation; E66.01 Morbid (severe) obesity due to excess calories; F17.210 Nicotine dependence, cigarettes, uncomplicated; Z68.41 Body mass index [BMI] 40.0-44.9, adult | CPT/HCPCS: 99212 ==

== ENCOUNTER 2023-07-26 10:52 | Outpatient (RCR) | payer MEDICAID, SELFPAY ==
--- NOTE | 2023-07-26 14:25 | MHC.OT.EP ---
[address] [phone] Occupational Therapy Plan of Care Patient Name: Sarita Puga Date of Evaluation: 07/26/23 Diagnosis: Medial epicondylitis, left elbow Pain Location: 4-7 left medial elbow. Ache Pain Score: 4 Pain Scale Used: Numeric (0 - 10) Aggravating Factors: Elbow end ranges Alleviating Factors: CP Assessment: Sarita is a 57 yo female with a 1 month history of left elbow pain since a fall walking up stairs at home. XR shows mild degenerative changes. 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 Today she presents with traumatic left elbow medial epicondylitis. Pt will benefit from OT to improve left elbow pain Frequency and Duration: The patient will be seen 2 x wk , x 4 wks Short Term Goals: Indep with elbow protection techniques Indep with thera ex as instructed Dec pain with elbow AROM Assisted Goals: Pain free left elbow with daily activities Indep with self management of left elbow pain Left integrated logistics programs director inc to > 30 lb Treatment Plan: Therapeutic Exercise Therapeutic Activity Home Exercise Program Patient Education Ultrasound MHP Cold Packs Kinesiotaping Electronically Signed By: Emma Watkins OT CHT CLT Please Sign and return to therapist. Thank you once again for your referral.
--- NOTE | 2023-07-26 14:26 | MHC.OT.EP ---
[address] [phone] Occupational Therapy Plan of Care Patient Name: Sarita Puga Date of Evaluation: 07/26/23 Diagnosis: Medial epicondylitis, left elbow Pain Location: 4-7 left medial elbow. Ache Pain Score: 4 Pain Scale Used: Numeric (0 - 10) Aggravating Factors: Elbow end ranges Alleviating Factors: CP Assessment: Sarita is a 57 yo female with a 1 month history of left elbow pain since a fall walking up stairs at home. XR shows mild degenerative changes. 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 Today she presents with traumatic left elbow medial epicondylitis. Pt will benefit from OT to improve left elbow pain Frequency and Duration: The patient will be seen 2 x wk , x 4 wks Short Term Goals: Indep with elbow protection techniques Indep with thera ex as instructed Dec pain with elbow AROM Custodial Goals: Pain free left elbow with daily activities Indep with self management of left elbow pain Left battery loader inc to > 30 lb Treatment Plan: Therapeutic Exercise Therapeutic Activity Home Exercise Program Patient Education Ultrasound MHP Cold Packs Kinesiotaping Electronically Signed By: Emma Watkins OT CHT CLT Please Sign and return to therapist. Thank you once again for your referral.
== END 2023-08-30 08:52 | disposition home or self-care (01) ==
LOC: HO.OT 10:52
PROVIDERS: PCP Internal Medicine Geriatric Medicine; Visit Provider Physical Medicine & Rehabilitation
DX: M77.02 Medial epicondylitis, left elbow (principal)
CPT/HCPCS: 97110; 97166

== ENCOUNTER 2023-08-17 10:01 | Outpatient (REF) | payer MEDICAID, SELFPAY ==
--- NOTE | ~2023-08-17 | US_ITS ---
EXAMINATION: US RETROPERITONEAL COMPLETE (RENAL) CLINICAL INFORMATION: Calculus of kidney. COMPARISON: CT kidney stone 12/13/2022. Ultrasound renal 09/30/2022. Ultrasound abdomen 03/02/2021. X-ray KUB 04/14/2021 and 11/07/2018. TECHNIQUE: Real-time imaging of the kidneys and bladder. FINDINGS: RIGHT KIDNEY: 15.1 x 5.0 x 6.4 cm (SAG x AP x TRV). The kidney is normal in size, contour, and echogenicity. Renal cortical thickness is normal. No calculi or focal parenchymal lesions. There is an extrarenal pelvis, without andrea hydronephrosis. LEFT KIDNEY: 13.8 x 7.3 x 4.8 cm (SAG x AP x TRV). The kidney is normal in size, contour, and echogenicity. Renal cortical thickness is normal. No focal parenchymal lesions. At the lower pole, a 4 mm nonobstructing calculus is seen. There is an extra renal pelvis, without andrea hydronephrosis. BLADDER: Well distended and normal. Left ureteral jet is demonstrated; right is not. Prevoid bladder volume is 291 mL. Postvoid bladder volume is 47 mL. US/US retroperitoneal comp IMPRESSION: A 4 mm nonobstructing left renal calculus is seen. No right renal calculus is seen. No hydronephrosis is noted bilaterally.
== END 2023-08-17 10:02 | disposition home or self-care (01) ==
LOC: HO.US 10:01
PROVIDERS: PCP Internal Medicine Geriatric Medicine; Visit Provider Nurse Practitioner Family
DX: N20.0 Calculus of kidney (principal); R30.0 Dysuria; Q63.2 Ectopic kidney
CPT/HCPCS: 76770

== ENCOUNTER 2023-08-18 08:50 | Outpatient (AMB) | payer MEDICAID, SELFPAY ==
--- NOTE | 2023-08-18 08:52 | MHC.OFFVIS ---
Vital Signs 08/18/23 08:57 Height 5 ft 2 in Weight 242 lb BMI 44.3 Handedness Right Intake Visit Reasons: OV - Left Medial Epicondylitis Intake Note: Sarita is a 57 year old right hand dominant female who presents today for a follow up for Left Medial Epicondylitis. Patient reports she is still having on going severe pain in the left elbow. She says the pain is now radiating to her left shoulder. She expresses she uses her brace but her arm is swollen so she has not been able to use it lately without pain. She has tried lidocaine cream for relief. She has only completed one appointment of OT and is unable to notice improvement, she ended up getting COVID so she had to reschedule. Hx of DM. Rope Laying Machine Operator Required: Yes Rope Laying Machine Operator Language: Computer Systems Support Specialist Name: [id number] Allergies penicillin G [Penicillin G] Allergy (Mild, Verified 08/18/23 09:00) SWELLING barium sulfate [ORAL CONTRAST] Allergy (Unknown, Verified 08/18/23 09:00) HIVES Medication List - Last Reconciled 08/18/23 by Ivett Gibbs MD albuterol sulfate 90 mcg/actuation (ProAir HFA) 2 puffs PO Q4-6H PRN albuterol sulfate 2.5 mg (3 mL) inhalation Q4-6H PRN 30 days alcohol swabs (Alcohol Prep Pads) pad topical BID aspirin 1 tab PO QPM atorvastatin 80 mg PO QPM buspirone 15 mg PO BID cetirizine (Zyrtec) 10 mg PO DAILY PRN 14 days clonidine HCl 0.1 mg PO BEDTIME dulaglutide (Trulicity) 3 mg subcut QWEEK esomeprazole magnesium (Nexium) 40 mg PO BID 90 days fluticasone propion-salmeterol 115-21 mcg/actuation (Advair HFA) 2 puffs inhalation Q12H 30 days gabapentin 300 mg PO TID haloperidol 1 mg PO BEDTIME insulin glargine (Lantus Solostar U-100 Insulin) 28 units subcut DAILY insulin lispro (Humalog KwikPen U-200 Insulin) units subcut ipratropium-albuterol 20-100 mcg/actuation (Combivent Respimat) 1 puff PO Q6H lidocaine 5% 1 patch topical DAILY linaclotide (Linzess) 290 mcg PO QAM metformin ER 500 mg PO QPM metoprolol succinate ER 25 mg PO DAILY montelukast (Singulair) 10 mg PO BEDTIME multivitamin (One Daily Multivitamin tablet) 1 tab PO QAM nortriptyline 10 mg PO BEDTIME ondansetron 4 mg PO DAILY PRN oxcarbazepine 450 mg PO BID oxycodone 10 mg PO Q12H PRN paroxetine HCl 40 mg PO BEDTIME pen needle, diabetic (Pentips) As directed polyethylene glycol 3350 (Miralax) 17 grams PO DAILY pyridoxine (vitamin B6) 100 mg PO DAILY 90 days sertraline 100 mg PO DAILY simvastatin 20 mg PO BEDTIME sucralfate 1 g PO BEDTIME tamsulosin 0.4 mg PO QAM HPI Comments Details: Last seen 06/21 daughter who helped with translation. Patient fell while going up stairs in March. Frequent falls but that was the last fall. She admits to chronic pain all over but this new pain is on left arm. From left elbow, medial area, radiating upwards. Hard to keep elbow extended due to pain. Tingling on forearm. Painful with grabbing but denies weakness. No new neck pain. Uses walker baseline. Treatment done so far: pain medications, chronic - Oxycodone topical meds gone to one OT appointment Patient says it is not yet better. Points to lateral elbow and says it swells. She's been wearing the counterforce but feels it is painful when she wears. Denies any falls again. She does complain of finger numbness. Her DM is poorly controlled, high sugar in morning, today was 216. [facility] Medical History Restrictive lung disease secondary to obesity COPD (chronic obstructive pulmonary disease) Nocturnal hypoxemia DRE (obstructive sleep apnea) Cough Nicotine dependence, cigarettes, uncomplicated Allergic rhinitis Morbid obesity Hyperlipidemia GERD (gastroesophageal reflux disease) Tubular adenoma Chronic idiopathic constipation IBS (irritable bowel syndrome) Back pain Depression Surgical History History of appendectomy (~1978) History of (~1986) History of hysterectomy (~1995) History of lithotripsy (~2018) History of carpal tunnel surgery of right wrist (~2020) History of colonoscopy History of esophagogastroduodenoscopy (EGD) Family History Mother Diabetes Heart muscle disorder caused by another medical condition Father Diabetes Epilepsy Sister No problems noted. Sister No problems noted. Sister No problems noted. Sister No problems noted. Sister No problems noted. Brother No problems noted. Brother No problems noted. Brother No problems noted. Brother No problems noted. Brother No problems noted. Brother No problems noted. Daughter No problems noted. Daughter No problems noted. Son No problems noted. Son No problems noted. Son No problems noted. Social History Alcohol intake: current Alcohol intake frequency: holidays/special occasions only Patient Tobacco Use Status: Current everyday Tobacco user Cigarettes Per Day: 15 Substance Use Type: Opiates Physical Exam Vital Signs: BMI result Body Mass Index 44.3 Constitutional: Patient appears to be in no acute distress, well nourished and well developed. MSK: Her tenderness is mostly on left lateral epicondyle but she is also diffusely tender from elbow to wrist. No signs of inflammation or swelling seen. No atrophy. Hawkin's test is negative. No joint effusion noted. No deformity noted. No intrinsic hand weakness noted. No atrophy noted. Tarsha test negative. Carpal compression positive left wrist. Give-way weakness due to pain. Neurological: No focal weakness. Angel?s negative bilaterally. Gait is non-antalgic without loss of balance. Results Reviewed Results Reviewed: Ordering Physician: Ivett Cevallos Date of Service: 06/22/23 Procedure(s): XR elbow LT min 3V Accession Number(s): [id number] cc: Name,Kiel BAILEY; Ivett Cevallos~ EXAMINATION: XR ELBOW, LEFT CLINICAL INFORMATION: Left elbow medial epicondylitis. COMPARISON: None available. TECHNIQUE: AP, lateral, and oblique views of the left elbow. FINDINGS: Minimal spurring along the dorsal aspect of the olecranon and along the coronoid. Alignment preserved. No displaced fracture appreciated. XR/XR elbow LT min 3V IMPRESSION: Minimal degenerative changes. No displaced fracture. Recommend follow-up imaging in 10-14 days if fracture is suspected. Reviewed films, olecranon spur mentioned is very minimal Assessment & Plan Assessment & Plan (1) Elbow pain, left: Code(s): M25.522 - Pain in left elbow Category: Medical (2) Numbness of left hand: Code(s): R20.0 - Anesthesia of skin Category: Medical Plan Suspect left lateral epicondylitis but her pain seems to be more diffuse. X-ray really did not show any significant findings, no fracture. Radiologist did say to follow up x-ray to evaluate for occult fracture. We will do x-ray today. Though very low suspicion for fracture. Patient has not fallen since last time I saw her. We will also schedule her for nerve conduction since she is diabetic, rule out Carpal Tunnel Syndrome or ulnar neuropathy. She may have underlying neuropathy from diabetes. Advised to continue counterforce brace as much as she can. We will not inject today as her blood sugars are poorly controlled. Assessment and plan discussed with patient, and patient was agreeable. All questions were answered thoroughly. Ivett Gibbs MD, ROBERTO Board Certified, [place] [employer] and Rehabilitation (ABPMR) Board Certified, [place] [employer] Electrodiagnostic [employer] (ABEM) Orders: Orders XR elbow LT min 3V Today M25.522 - Pain in left elbow NE electromyogram (EMG) Today M25.522 - Pain in left elbow, R20.0 - Anesthesia of skin NE nerve conduction velocity Today M25.522 - Pain in left elbow, R20.0 - Anesthesia of skin Coding Level of Care Code Est Pt Level 4 (73849) Diagnoses Elbow pain, left M25.522 Numbness of left hand R20.0
[2023-08-18 08:57] VITALS: BMI 44.3
== END 2023-08-18 09:33 | disposition home or self-care (01) ==
LOC: HO.HOS 08:50
PROVIDERS: PCP Internal Medicine Geriatric Medicine; Visit Provider Physical Medicine & Rehabilitation
DX: M25.522 Pain in left elbow (principal); R20.0 Anesthesia of skin
CPT/HCPCS: 99213

== ENCOUNTER 2023-08-18 08:50 | Outpatient (REF) | payer MEDICAID, SELFPAY ==
--- NOTE | ~2023-08-18 | XR_ITS ---
EXAMINATION: XR ELBOW, LEFT CLINICAL INFORMATION: Pain in left elbow, follow-up to evaluate occult fracture. COMPARISON: June 22, 2023 TECHNIQUE: AP, lateral, and oblique views of the left elbow. FINDINGS: Radiopaque marker placed by technologist to indicate the area of concern as indicated by the patient along the proximal shaft of the radius/ulna. No significant joint effusion. Alignment maintained. Mild degenerative changes in the elbow joint. No displaced fracture appreciated. XR/XR elbow LT min 3V IMPRESSION: Mild degenerative changes. No displaced fracture appreciated.
== END 2023-08-18 08:51 | disposition home or self-care (01) ==
LOC: HO.HOSX 08:50
PROVIDERS: PCP Internal Medicine Geriatric Medicine; Visit Provider Physical Medicine & Rehabilitation
DX: M77.02 Medial epicondylitis, left elbow (principal); R20.0 Anesthesia of skin
CPT/HCPCS: 73080; 99212

== ENCOUNTER 2023-08-22 10:08 | Outpatient (AMB) | payer MEDICAID, SELFPAY ==
--- NOTE | 2023-08-22 10:23 | A.OFFVIS_ITS ---
Intake Visit Reasons: follow up/ US/ Hematuria Intake Note: Patient presents for follow visit on: nephrolithiasis and ultrasound results Imagin08/17/23 Urology Medications: Vitamin B6 Blood Thinner: aspirin Perinatal Coordinator Required: Yes Perinatal Coordinator Name: [id number] Accompanied by: Self / Same As Patient Allergies penicillin G [Penicillin G] Allergy (Mild, Verified 08/22/23 11:56) SWELLING barium sulfate [ORAL CONTRAST] Allergy (Unknown, Verified 08/22/23 11:56) HIVES Medication List - Last Reconciled 08/22/23 by QAMAR Delgado- albuterol sulfate 90 mcg/actuation (ProAir HFA) 2 puffs PO Q4-6H PRN albuterol sulfate 2.5 mg (3 mL) inhalation Q4-6H PRN 30 days alcohol swabs (Alcohol Prep Pads) pad topical BID aspirin 1 tab PO QPM atorvastatin 80 mg PO QPM buspirone 15 mg PO BID cetirizine (Zyrtec) 10 mg PO DAILY PRN 14 days clonidine HCl 0.1 mg PO BEDTIME dulaglutide (Trulicity) 3 mg subcut QWEEK esomeprazole magnesium (Nexium) 40 mg PO BID 90 days fluticasone propion-salmeterol 115-21 mcg/actuation (Advair HFA) 2 puffs inhalation Q12H 30 days gabapentin 300 mg PO TID haloperidol 1 mg PO BEDTIME insulin glargine (Lantus Solostar U-100 Insulin) 28 units subcut DAILY insulin lispro (Humalog KwikPen U-200 Insulin) units subcut ipratropium-albuterol 20-100 mcg/actuation (Combivent Respimat) 1 puff PO Q6H lidocaine 5% 1 patch topical DAILY linaclotide (Linzess) 290 mcg PO QAM metformin ER 500 mg PO QPM metoprolol succinate ER 25 mg PO DAILY montelukast (Singulair) 10 mg PO BEDTIME multivitamin (One Daily Multivitamin tablet) 1 tab PO QAM nortriptyline 10 mg PO BEDTIME ondansetron 4 mg PO DAILY PRN oxcarbazepine 450 mg PO BID oxycodone 10 mg PO Q12H PRN paroxetine HCl 40 mg PO BEDTIME pen needle, diabetic (Pentips) As directed polyethylene glycol 3350 (Miralax) 17 grams PO DAILY pyridoxine (vitamin B6) 100 mg PO DAILY 90 days sertraline 100 mg PO DAILY simvastatin 20 mg PO BEDTIME sucralfate 1 g PO BEDTIME tamsulosin 0.4 mg PO QAM HPI Comments Details: Sarita is a pleasant 58-year-old Malay-speaking female patient of Dr. Shaffer. She has a past medical history of oxygen dependence, chronic idiopathic constipation, IBS, back pain, GERD, hyperlipidemia, depression, diabetes, restrictive lung disease, smoker, obstructive sleep apnea, and obesity. She presents to the office today for follow-up of her kidney male rotation and nephrolithiasis. Discussion with the patient today she reports noting ongoing left-sided abdominal pain. In assessment of the patient today no CVA tenderness noted bilaterally. Patient appears to have left lateral pain upon palpation. She currently denies any bothersome urinary issues. She denies urinary urgency, urinary frequency, incontinence, nocturia, hematuria, dysuria, foul smelling urine, changes to urinary stream, flank pain, fever, and or chills. She is happy with her current voiding parameters. Recent renal imaging results reviewed with the patient today. Bilateral kidneys with no lesions or or hydronephrosis. At the lower pole of the left kidney 4 mm nonobstructing calculi. The bladder is well distended and normal. Pre void bladder volume is approximately 300 mL. Postvoid bladder volume is approximately 50 mL.In office urinalysis results reviewed with the patient today 2+ glucosuria otherwise within normal limits. Patient with a history of microgen testing 12/13 that noted no growth. She otherwise offers no other issues or concerns at this time. [facility] Medical History Restrictive lung disease secondary to obesity COPD (chronic obstructive pulmonary disease) Nocturnal hypoxemia DRE (obstructive sleep apnea) Cough Nicotine dependence, cigarettes, uncomplicated Allergic rhinitis Morbid obesity Hyperlipidemia GERD (gastroesophageal reflux disease) Tubular adenoma Chronic idiopathic constipation IBS (irritable bowel syndrome) Back pain Depression Surgical History History of appendectomy (~1978) History of (~1986) History of hysterectomy (~1995) History of lithotripsy (~2018) History of carpal tunnel surgery of right wrist (~2020) History of colonoscopy History of esophagogastroduodenoscopy (EGD) Family History Mother Diabetes Heart muscle disorder caused by another medical condition Father Diabetes Epilepsy Sister No problems noted. Sister No problems noted. Sister No problems noted. Sister No problems noted. Sister No problems noted. Brother No problems noted. Brother No problems noted. Brother No problems noted. Brother No problems noted. Brother No problems noted. Brother No problems noted. Daughter No problems noted. Daughter No problems noted. Son No problems noted. Son No problems noted. Son No problems noted. Social History Alcohol intake: current Alcohol intake frequency: holidays/special occasions only Patient Tobacco Use Status: Current everyday Tobacco user Cigarettes Per Day: 15 Substance Use Type: Opiates Review of Systems Const Reports as per HPI Eyes Reports no additional complaints ENT Reports no additional complaints Card Reports as per HPI Resp Reports as per HPI GI Reports as per HPI Reports as per [facility] Musc Reports as per HPI Neuro Reports no additional complaints Psych Reports no additional complaints Endo Reports as per HPI Sung/Lymph Reports no additional complaints Aller/Immun Reports no additional complaints Physical Exam Const General: cooperative, healthy appearing, comfortable, no acute distress, well developed, alert and awake Nutritional Appearance: overweight Orientation/consciousness: patient oriented x3 Limitations: no limitations HEENT Head: Yes normal to inspection, Yes normocephalic and Yes atraumatic Ears: hearing grossly normal bilaterally Eyes General: appearance normal, both eyes and all related structures Neck Neck: Yes normal visual inspection and Yes trachea midline Chest Chest palpation & inspection: normal inspection of the chest Resp Effort & Inspection: normal respiratory effort and able to speak in complete sentences Cardio Rate: regular rate GI Inspection: Yes normal to inspection General: Yes no CVA tenderness Back/Spine/Pelvis Back: no CVA tenderness Skin General skin exam: no rashes or lesions noted Neuro General: patient oriented x3 Extrem General: Yes normal to inspection Psych Appearance: grossly normal and well kempt Mental Status: mental status grossly normal Speech and movement: Normal speech and movement present and Clear speech present Affect: normal affect Attitude: cooperative Thought process: Normal thought process present Thought content: Normal thought content present Insight: Fair insight present (Psych) Judgement: Fair judgement present (Psych) Results AMB Urinalysis, Automated UA Leukoctes 0 Mary/uL Last Edit by Salmon Socialsheldon Camacho on 08/22/23 10:46 UA Nitrite Negative Last Edit by Salmon [email or web address] [email or web address] on 08/22/23 10:46 UA Urobilinogen 0.2 mg/dL Last Edit by Salmon [email or web address] [email or web address] on 08/22/23 10:46 UA Protein 0 mg/dL Last Edit by [employer] Teensjulia on 08/22/23 10:46 UA pH 6.0 Last Edit by [employer] Te[employer]ul[employer] on 08/22/23 10:46 UA Blood 0 Doc/uL Last Edit by [employer] Te[employer]ulia on 08/22/23 10:46 UA Specific [place] 1.020 Last Edit by [employer] Te[employer]julia on 08/22/23 10:46 UA Ketone Negative Last Edit by [employer] Te[employer]ulia on 08/22/23 10:46 UA Bilirubin 0 mg/dL Last Edit by [employer] Te[employer]ulia on 08/22/23 10:46 UA Glucose 500 mg/dL Last Edit by Salmon [email or web address] on 08/22/23 10:46 Results Reviewed Results Reviewed: Laboratory Last Values Urine pH (Auto) 6.0 08/22/23 10:44 Specific [place] (Auto) 1.020 08/22/23 10:44 Urine Protein (Auto) 0 mg/dL 08/22/23 10:44 Glucose (UA)(Auto) 500 mg/dL 08/22/23 10:44 Urine Ketones (Auto) Negative 08/22/23 10:44 Urine Blood (Auto) 0 Doc/uL 08/22/23 10:44 Urine Nitrite (Auto) Negative 08/22/23 10:44 Urine Bilirubin (Auto) 0 mg/dL 08/22/23 10:44 Urine Urobilinogen (Auto) 0.2 mg/dL 08/22/23 10:44 Leukocyte Esterase (Auto) 0 Mary/uL 08/22/23 10:44 Date of Service: 08/17/23 EXAMINATION: US RETROPERITONEAL COMPLETE (RENAL) FINDINGS: RIGHT KIDNEY: 15.1 x 5.0 x 6.4 cm (SAG x AP x TRV). The kidney is normal in size, contour, and echogenicity. Renal cortical thickness is normal. No calculi or focal parenchymal lesions. There is an extrarenal pelvis, without andrea hydronephrosis. LEFT KIDNEY: 13.8 x 7.3 x 4.8 cm (SAG x AP x TRV). The kidney is normal in size, contour, and echogenicity. Renal cortical thickness is normal. No focal parenchymal lesions. At the lower pole, a 4 mm nonobstructing calculus is seen. There is an extra renal pelvis, without andrea hydronephrosis. BLADDER: Well distended and normal. Left ureteral jet is demonstrated; right is not. Prevoid bladder volume is 291 mL. Postvoid bladder volume is 47 mL. IMPRESSION: A 4 mm nonobstructing left renal calculus is seen. No right renal calculus is seen. No hydronephrosis is noted bilaterally. Assessment & Plan Assessment & Plan (1) Nephrolithiasis: Code(s): N20.0 - Calculus of kidney Category: Medical Plan In office urinalysis results reviewed with the patient today; as noted above. Recent retroperitoneal ultrasound results reviewed with the patient today; as noted above. Discussed left lateral abdominal pain likely unrelated to nephrolithiasis; however if pain persists to call the office and or seek medical treatment for further assessment evaluation. She currently denies any bothersome urinary issues. She reports be happy with current voiding parameters. Discussed, educated, and stressed the importance of adequate hydration in relation to nephrolithiasis as well as overall health and well-being. Discussed, educated, and stressed the importance of managing diabetes for overall health and well-being. Will obtain renal ultrasound in 6 months. Follow-up in 6 months with imaging to be completed prior; or sooner with any issues, concerns, and or questions. Orders: Orders AMB Urinalysis Automated 08/22/23 Z13.9 - Encounter for screening, unspecified US renal BI 6 Months N20.0 - Calculus of kidney Patient Instructions: The patient had an opportunity to ask questions regarding the treatment plan. All questions were answered. Physical exam, labs, and imaging were discussed and reviewed in detail. As well as risks, benefits, and discussion of treatment choices. No major barriers to understanding were identified. The patient expressed understanding and agreement with the above treatment plan. The patient was made aware they should contact our office by phone for worsening of their current condition, the appearance of new symptoms, or with any questions or concerns. Compliance is encouraged with any medications and follow up testing that is ordered. It is a privilege to be allowed the opportunity to participate in? your urological care.? Again, if you have any questions or concerns If you have any questions or concerns please do not hesitate to contact me. The office is [phone]. This note is constructed using voice recognition software. While every effort has been made to ensure accuracy auto fleet manager errors may have been included. Yours sincerely, DEMETRIUS Delgado Coding Level of Care Code Est Pt Level 3 (08265) Diagnoses Nephrolithiasis N20.0
== END 2023-08-22 10:51 | disposition home or self-care (01) ==
PROVIDERS: PCP Internal Medicine Geriatric Medicine; Visit Provider Nurse Practitioner Family
DX: N20.0 Calculus of kidney (principal)
CPT/HCPCS: 99213

== ENCOUNTER → 2023-08-22 10:08 | Outpatient (BNVA) | payer MEDICAID, SELFPAY | PROVIDERS: PCP Internal Medicine Geriatric Medicine; Visit Provider Nurse Practitioner Family | DX: R31.9 Hematuria, unspecified (principal); N20.0 Calculus of kidney; Z79.82 Long term (current) use of aspirin | CPT/HCPCS: 81003; 99212 ==

== ENCOUNTER 2023-09-07 13:20 | Outpatient (REF) | payer MEDICAID, SELFPAY ==
--- NOTE | 2023-09-07 13:23 | EMG_ITS ---
Chief complaint: Left hand numbness Reason for referral: Evaluate for Carpal Tunnel Syndrome versus ulnar neuropathy Procedure done: Left upper extremity NCS/EMG Precautions and/or limitations: Pain, poor tolerance of this The limb temperature was monitored continuously and remained between 32-36 degrees C during the performance of the NCS. Nerve Conduction Studies Anti Sensory Summary Table ?Stim Site NR Onset (ms) Norm Onset (ms) Peak (ms) Norm Peak (ms) O-P Amp (?V) Norm O-P Amp Site1 Site2 Delta-0 (ms) Dist (cm) Fritz (m/s) Norm Fritz (m/s) Left Median Anti Sensory (2nd Digit) Wrist ? 4.9 5.8 <3.6 3.8 >10 Wrist 2nd Digit 4.9 14.0 29 Left Radial Anti Sensory (Thumb) Forearm ? 1.5 2.0 <3.1 21.5 Forearm Thumb 1.5 0.0 Left Ulnar Anti Sensory (5th Digit) Wrist ? 2.1 3.1 <3.7 13.0 >15.0 Wrist 5th Digit 2.1 14.0 67 Motor Summary Table ?Stim Site NR Onset (ms) Norm Onset (ms) O-P Amp (mV) Norm O-P Amp iAmp (mV) Amp (1st) (%) Site1 Site2 Delta-0 (ms) Dist (cm) Fritz (m/s) Norm Fritz (m/s) Left Median Motor (Abd Poll Brev) Wrist ? 5.9 <3.9 6.8 >4.5 8.2 100.0 Elbow Wrist 4.0 19.5 49 >45 Elbow ? 9.9 5.8 6.8 85.3 Left Ulnar Motor (Abd Dig Minimi) Wrist ? 2.8 <3.0 8.0 >5 9.5 100.0 B Elbow Wrist 3.1 17.5 56 >45 B Elbow ? 5.9 7.7 9.2 96.3 A Elbow B Elbow 1.6 10.0 63 >45 A Elbow ? 7.5 7.6 9.1 95.0 EMG ?Side Muscle Nerve Root Ins Act Fibs Psw Amp Dur Poly Recrt Int Pat Comment Left FlexCarRad Median C6-7 Nml Nml Nml Nml Nml 0 Nml Complete Left Biceps Musculocut C5-6 Nml Nml Nml Nml Nml 0 Nml Complete Left Triceps Radial C6-7-8 Nml Nml Nml Nml Nml 0 Nml Complete Left Deltoid Axillary C5-6 Nml Nml Nml Nml Nml 0 Nml Complete FINDINGS: Left median motor nerve showed prolonged distal latency, normal amplitude and normal conduction velocity. Left median sensory nerve showed prolonged peak latency. All other nerves tested were within normal. Concentric needle EMG was performed in selected muscles of the left upper extremity. Study did not reveal signs of electric abnormalities as shown in the table above. Deferred testing left FDI due to poor tolerance of test, pain. IMPRESSION: 1. This is an abnormal study. 2. There is electrodiagnostic evidence for left moderate-severe median neuropathy at the wrist, consistent with carpal tunnel syndrome. 3. There is no electrodiagnostic evidence for ulnar neuropathy, brachial plexopathy, or cervical radiculopathy. CLINICAL COMMENT: We will refer to hand surgery Dr. Sarkar for consideration of Carpal Tunnel Syndrome surgery.. Thank you for your kind referral. Ivett Gibbs MD, ROBERTO Board Certified, [place] Board [employer] Medicine and Rehabilitation (ABPMR) Board Certified, [place] Board of Electrodiagnostic Medicine (ABEM) CODIN 50090 MTDD
== END 2023-09-07 13:21 | disposition home or self-care (01) ==
LOC: HO.NEURO 13:20
PROVIDERS: PCP Internal Medicine Geriatric Medicine; Visit Provider Physical Medicine & Rehabilitation
DX: R20.0 Anesthesia of skin (principal); M25.522 Pain in left elbow
CPT/HCPCS: 95885; 95909

== ENCOUNTER → 2023-09-07 13:23 | Outpatient (BNV) | payer MEDICAID, SELFPAY | PROVIDERS: PCP Internal Medicine Geriatric Medicine; Visit Provider Physical Medicine & Rehabilitation | DX: G56.02 Carpal tunnel syndrome, left upper limb (principal) | CPT/HCPCS: 95885; 95909 ==

== ENCOUNTER 2023-09-14 15:09 | Outpatient (REF) | payer MEDICAID, SELFPAY | END 2023-09-14 15:10 | disposition home or self-care (01) | LOC: HO.HHCX 15:09 | PROVIDERS: Visit Provider Internal Medicine Geriatric Medicine | DX: M79.674 Pain in right toe(s) (principal) | CPT/HCPCS: 73630 ==

== ENCOUNTER → 2023-09-14 15:12 | Outpatient (BNV) | payer MEDICAID, SELFPAY | PROVIDERS: Visit Provider Radiology Diagnostic Radiology | DX: S99.921A Unspecified injury of right foot, initial encounter (principal) | CPT/HCPCS: 73630 ==

== ENCOUNTER 2023-09-30 10:34 | Outpatient (AMB) | payer MEDICAID, SELFPAY ==
--- NOTE | 2023-09-30 07:56 | A.OFFVIS_ITS ---
Intake Visit Reasons: Current Smoker Allergies penicillin G [Penicillin G] Allergy (Mild, Verified 08/22/23 11:56) SWELLING barium sulfate [ORAL CONTRAST] Allergy (Unknown, Verified 08/22/23 11:56) HIVES HPI HPI Current Smoker: Details: Initial visit for this 58yo smoker with a 20+PYH. Patient has been smoking since age 13 for 42 years. Max 2ppd, now and mostly at 1/2ppd. Quit for 3 years in 2019 due to lymphoma diagnosis. Unfortunately began smoking again. . Denies marijuana use. Denies second hand smoke exposure. Denies exposure to chemicals or substances like asbestos. . Reports family history of lung cancer maternal grandmother. Reports personal history of cancers. Lymphoma Denies chest CT in last year. Reports recent CT at [facility] - abdomen, Denies recent travel outside the . Denies recent respiratory illness or recent hospitalization for respiratory issues. Reports testing positive for COVID x 2 Admits receiving COVID Vaccine. x 4. . Denies fever, chills, new/worsening cough, hemoptysis, hoarseness or dysphagia. Denies significant chest pain, significant dyspnea or unintentional weight loss. Patient Lung Cancer Screening Questionnaire reviewed with patient by provider. . Shared Decision Making Completed. Patient meets criteria. Discussed in detail with patient, the risk vs benefit of LDCT screening. Patient consents to proceed with scan. Discussed smoking cessation. [facility] Medical History (Updated 09/30/23 @ 11:15 by Allison Cannon PA-C) Lymphoma Restrictive lung disease secondary to obesity COPD (chronic obstructive pulmonary disease) Nocturnal hypoxemia DRE (obstructive sleep apnea) Cough Nicotine dependence, cigarettes, uncomplicated Allergic rhinitis Morbid obesity Hyperlipidemia GERD (gastroesophageal reflux disease) Tubular adenoma Chronic idiopathic constipation IBS (irritable bowel syndrome) Back pain Depression Surgical History (Updated 09/30/23 @ 10:49 by Allison Cannon PA-C) History of total right knee replacement (TKR) History of appendectomy (~1978) History of (~1986) History of hysterectomy (~1995) History of lithotripsy (~2018) History of carpal tunnel surgery of right wrist (~2020) History of colonoscopy History of esophagogastroduodenoscopy (EGD) Family History Mother Diabetes Heart muscle disorder caused by another medical condition Father Diabetes Epilepsy Sister No problems noted. Sister No problems noted. Sister No problems noted. Sister No problems noted. Sister No problems noted. Brother No problems noted. Brother No problems noted. Brother No problems noted. Brother No problems noted. Brother No problems noted. Brother No problems noted. Daughter No problems noted. Daughter No problems noted. Son No problems noted. Son No problems noted. Son No problems noted. Social History (Updated 09/30/23 @ 11:16 by Allison Cannon PA-C) Alcohol intake: current Alcohol intake frequency: holidays/special occasions only Patient Tobacco Use Status: Current everyday Tobacco user Cigarettes Per Day: 10 Years Smoked: (onset 13yo, x 42yrs, max 2ppd, now 1/2ppd - 30PYH) Substance Use Type: Opiates Assessment & Plan Assessment & Plan (1) Nicotine dependence, cigarettes, uncomplicated: Comment: (current smoker - onset 13yo, x 42yrs, max 2ppd, now 1/2ppd - 30PYH) Code(s): F17.210 - Nicotine dependence, cigarettes, uncomplicated Category: Medical Plan: - SDM visit completed today in office. - Patient meets criteria for LDCT for lung cancer screening purposes and is a symptomatic. - Smoking cessation counseling offered. Patients can always call [phone]. - Will arrange for a LDCT scan of the chest for screening purposes at [facility]. - Risks, benefits, and alternatives were discussed in detail and the patient agrees to proceed. - Risks discussed include but are not limited to: radiation exposure, anxiety during testing and while awaiting results, false negatives, false positives and possibility of additional intervention such as further imaging or surgical procedures for benign disease. - Benefits are obviously detection of lung cancer at an early stage which can lead to improved outcomes. - Discussed the importance of screening program compliance with adherence to yearly LDCT scan as scheduled - or sooner interval scans for personalized screening regimen. - Discussed follow up plan. Our office will send a letter discussing results and if needed set up phone call and office visit based on CT findings. - Patient educated on results categorization and the management decisions for suspicious findings potentially found on the screening LDCT scan. Any patient with a Lung RADS score of 3 or 4 will be reviewed by a multidisciplinary team at [facility] to form a plan of action in regards to scan findings. - If further work up is warranted for a suspicious lung finding this will be followed by the Lung Cancer Screening program in conjunction with the Thoracic Surgery Department at [facility]. - A copy of the office note and LDCT will be sent to the patient's PCP - as well as documentation on any associated further plans of care. - Incidental findings on LDCT are the PCP's responsibility. These findings are indicated with an S finding on the LDCT Assessment. A note discussing the findings will be sent to the PCP who is then responsible for further management. - All questions answered.? Coding Level of Care Code Lung Cancer Screening G0296 Diagnoses Nicotine dependence, cigarettes, uncomplicated F17.210
== END 2023-09-30 10:53 | disposition home or self-care (01) ==
PROVIDERS: PCP Internal Medicine Geriatric Medicine; Referring Provider Internal Medicine; Visit Provider Physician Assistant Medical
DX: F17.210 Nicotine dependence, cigarettes, uncomplicated (principal)
CPT/HCPCS: G0296

== ENCOUNTER 2023-09-30 10:58 | Outpatient (REF) | payer MEDICAID, SELFPAY ==
--- NOTE | ~2023-09-30 | CT_ITS ---
EXAMINATION: CT LOW-DOSE SCREENING CHEST WITHOUT CONTRAST CLINICAL INFORMATION: Nicotine dependence, cigarettes, uncomplicated. The patient is a current smoker with a 44 pack-year history of smoking. COMPARISON: X-ray chest May 26, 2023. CT chest October 22, 2021. TECHNIQUE: Multidetector volumetric CT imaging of the chest is performed on a Siemens SOMATOM Definition scanner without contrast using low dose technique. Additional 2D coronal and sagittal reformatted images and axial 3D maximum intensity projection (MIP) images are generated on the CT workstation. This CT examination was performed using dose optimization techniques as appropriate, variously including the following: *Automated exposure control *Adjustment of mA and/or kV according to patient size (this includes techniques or standardized protocols for targeted exams where dose is matched to indication/reason for exam; i.e. extremities or head) *Use of iterative reconstruction technique TOTAL EXAM DLP: 57 mGy-cm. CTDIvol: 2.0 mGy. FINDINGS: PULMONARY NODULES: -Previously seen 5 mm left lower lobe pulmonary nodule is no longer present (prior 8:300). -3 mm right upper lobe medial nodule which is unchanged (5:122 compare prior 8:119). -4 mm right upper lobe nodule is unchanged (5:198 compare prior 8:188). There is no new, increasing sized or concerning pulmonary nodule seen. LUNGS: The lungs are well expanded. There is mild diffuse emphysema and mild bronchial thickening. No effusion or pneumothorax. Central airways patent. MEDIASTINUM: No mediastinal, hilar or axillary adenopathy or free fluid collection. CORONARY ARTERY CALCIFICATION: Minimal. THYROID GLAND: Unremarkable to the extent seen. CARDIOVASCULAR STRUCTURES: Aortic and heart size normal. No pericardial effusion. CHEST WALL/AXILLA: Unremarkable. UPPER ABDOMEN: Included portions of the solid organs in the upper abdomen unremarkable on noncontrast imaging. OSSEOUS STRUCTURES: No suspicious focal findings. CT/CT lung screening IMPRESSION: No finding seen concerning for malignancy. Previously seen 5 mm left lower lobe pulmonary nodule has resolved. Other small pulmonary nodules are unchanged. ASSESSMENT: 1. Lung-RADS Category 2: Benign appearance or behavior of nodules. N/A 2. Lung-RADS Category S: Negative. There are no clinically significant or potentially clinically significant findings not related to the lungs requiring urgent additional evaluation. RECOMMENDATION: Continued routine annual low-dose CT lung screening in 1 year is recommended. An order for CT CHEST LOW DOSE CANCER SCREENING ([id number]) can be placed. Electronically signed by: Seng Miller MD 11/08/2023 08:20 PM EDT
== END 2023-09-30 10:59 | disposition home or self-care (01) ==
LOC: HO.CT 10:58
PROVIDERS: Visit Provider Physician Assistant Medical
DX: Z12.2 Encounter for screening for malignant neoplasm of respiratory organs (principal); F17.210 Nicotine dependence, cigarettes, uncomplicated
CPT/HCPCS: 71271; G0296

== ENCOUNTER 2023-10-11 09:12 | Outpatient (AMB) | payer MEDICAID, SELFPAY ==
[2023-10-11 10:52] VITALS: BMI 44.3
--- NOTE | 2023-10-11 10:52 | A.OFFVIS_ITS ---
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 Denies locking of finger. Patient states pain is worse on the left hand. Denies any prior injuries or surgeries. Patient would like to discuss surgery today. 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 She speaks some Australian. She complains of numbness in the left median nerve distribution. Symptoms intermittent, but daily, worse at night, and becoming more constant. She denies any small finger numbness. She has an upcoming surgery for her right leg on 10/31/23 at an outside clinic. She has a Hx of a right carpal tunnel release in 2020 at an outside clinic. [facility] Medical History (Updated 09/30/23 @ 11:15 by Allison Cannon PA-C) Lymphoma Restrictive lung disease secondary to obesity COPD (chronic obstructive pulmonary disease) Nocturnal hypoxemia DRE (obstructive sleep apnea) Cough Nicotine dependence, cigarettes, uncomplicated Allergic rhinitis Morbid obesity Hyperlipidemia GERD (gastroesophageal reflux disease) Tubular adenoma Chronic idiopathic constipation IBS (irritable bowel syndrome) Back pain Depression Surgical History (Updated 09/30/23 @ 10:49 by Allison Cannon PA-C) History of total right knee replacement (TKR) History of appendectomy (~1978) History of (~1986) History of hysterectomy (~1995) History of lithotripsy (~2018) History of carpal tunnel surgery of right wrist (~2020) History of colonoscopy History of esophagogastroduodenoscopy (EGD) Family History Mother Diabetes Heart muscle disorder caused by another medical condition Father Diabetes Epilepsy Sister No problems noted. Sister No problems noted. Sister No problems noted. Sister No problems noted. Sister No problems noted. Brother No problems noted. Brother No problems noted. Brother No problems noted. Brother No problems noted. Brother No problems noted. Brother No problems noted. Daughter No problems noted. Daughter No problems noted. Son No problems noted. Son No problems noted. Son No problems noted. Social History (Updated 10/11/23 @ 10:54 by HERSON Reyez) Alcohol intake: current Alcohol intake frequency: holidays/special occasions only Patient Tobacco Use Status: Current everyday Tobacco user Cigarettes Per Day: 10 Years Smoked: (onset 13yo, x 42yrs, max 2ppd, now 1/2ppd - 30PYH) Substance Use Type: Opiates Current occupation: rt handed Review of Systems Const All systems reviewed & are unremarkable except as noted in HPI and below Physical Exam Vital Signs: BMI result Body Mass Index 44.3 Const General: cooperative, healthy appearing and no acute distress Orientation/consciousness: patient oriented x3 HEENT Head: Yes normocephalic and Yes atraumatic Eyes EOM: EOMs intact bilaterally Resp Effort & Inspection: normal respiratory effort and able to speak in complete sentences Cardio Jugular venous distension: no JVD Skin General skin exam: turgor normal Rashes: no rashes Neuro General: patient oriented x3 Extrem Other: Evaluation of Left Upper Extremity: The patient is alert, oriented, and in no acute distress Neuro: Not quite normal sensation in the median nerve distribution. Normal sensation in the ulnar nerve distribution No thenar or intrinsic wasting Vascular: Cap refill brisk ROM: She can make a fist and extend all her digits No locking or catching Skin: No lacerations or abrasions. General: No Ecchymosis. No Erythema or evidence of infection. Nerve Conduction Study: IMPRESSION: 1. This is an abnormal study. 2. There is electrodiagnostic evidence for left moderate-severe median neuropathy at the wrist, consistent with carpal tunnel syndrome. 3. There is no electrodiagnostic evidence for ulnar neuropathy, brachial plexopathy, or cervical radiculopathy. 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 Left carpal tunnel syndrome, moderate-severe With abnormal sensation today in clinic, this gets worse at night with activities. I educated her about this condition I discussed operative and non-operative treatment options The patient would like to proceed with surgery The risks and benefits of operative treatment were discussed with the patient and the patient wishes to proceed with surgery. These risks include, but are not limited to risk of damage to blood vessels, nerves, tendons, infection, recurrence, incomplete relief of preoperative symptoms, persistent pain, possible need for further surgery and the risks associated with regional blocks and anesthesia. The plan is to take the patient to the operating room sometime in the next few weeks for the following procedures: 1. Left carpal tunnel release, under local All of the preoperative paperwork including the consent was reviewed today. All the patient's questions were answered. The patient understands that they will be contacted by our production control scheduler soon to schedule this procedure. She reports having a surgery for her leg sometime on 10/31/23, and would like this surgery to be done afterwards. She denies blood thinners, heart, kidney issues She has COPD, and Diabetes. She says her Diabetes is well controlled and she thinks her most recent HgA1c was ~7.0%. They will need an updated HgA1c that is <8.1% in order to proceed with surgery, and they expressed understanding Scribed for Bhavana Sarkar MD by Bc Gonzalez medical research scientist, on 10/11/23 at 10:55 AM, EST. Coding Level of Care Code New Pt Level 4 (91989) Diagnoses Carpal tunnel syndrome of left wrist G56.02 Insulin dependent type 2 diabetes mellitus E11.9; Z79.4 COPD (chronic obstructive pulmonary disease) J44.9
== END 2023-10-11 11:40 | disposition home or self-care (01) ==
PROVIDERS: PCP Internal Medicine Geriatric Medicine; Visit Provider Orthopaedic Surgery
DX: G56.02 Carpal tunnel syndrome, left upper limb (principal); E11.9 Type 2 diabetes mellitus without complications; Z79.4 Long term (current) use of insulin; J44.9 Chronic obstructive pulmonary disease, unspecified
CPT/HCPCS: 99204

== ENCOUNTER → 2023-10-11 09:12 | Outpatient (BNVA) | payer MEDICAID, SELFPAY | PROVIDERS: PCP Internal Medicine Geriatric Medicine; Visit Provider Orthopaedic Surgery | DX: G56.02 Carpal tunnel syndrome, left upper limb (principal); E11.9 Type 2 diabetes mellitus without complications; J44.9 Chronic obstructive pulmonary disease, unspecified; Z79.4 Long term (current) use of insulin | CPT/HCPCS: 99202 ==

== ENCOUNTER 2023-10-13 10:55 | Outpatient (REF) | payer MEDICAID, SELFPAY ==
--- NOTE | ~2023-10-13 | XR_ITS ---
EXAMINATION: XR CHEST CLINICAL INFORMATION: Persistent cough. COMPARISON: Chest radiograph 05/26/2023 and 04/01/2023. TECHNIQUE: 2 views of the chest were obtained. FINDINGS: Stable cardiomediastinal silhouette. Similar degree of mild diffuse interstitial prominence. No focal consolidation, pleural effusion or pneumothorax. Thoracic spondylosis. No acute osseous findings. Indeterminate oval-shaped radiopaque body measuring 1 x 0.2 cm projecting over the thoracic inlet. XR/XR chest 2V IMPRESSION: 1. Unchanged mild diffuse interstitial prominence that could be seen with small airways disease. 2. No focal consolidation or pleural effusion. 3. Indeterminate radiopaque body projecting over the thoracic inlet, possibly external to the patient. Correlate with clinical history and physical examination. Electronically signed by: Minnie Horner MD 10/13/2023 12:33 PM EDT
== END 2023-10-13 10:56 | disposition home or self-care (01) ==
LOC: HO.HHCX 10:55
PROVIDERS: Visit Provider Family Medicine
DX: J44.1 Chronic obstructive pulmonary disease with (acute) exacerbation (principal); R05.9 Cough, unspecified
CPT/HCPCS: 71046

== ENCOUNTER 2023-10-20 15:27 | Outpatient (REF) | payer MEDICAID, SELFPAY ==
--- NOTE | ~2023-10-20 | XR_ITS ---
EXAMINATION: XR FOOT, LEFT CLINICAL INFORMATION: X-ray left foot, pain. COMPARISON: None available. TECHNIQUE: 4 views of the left foot. FINDINGS: Moderate plantar and posterior calcaneal spurs. Mild degenerative changes in the first and second metatarsophalangeal joints with joint space narrowing and hypertrophic change. XR/XR foot LT min 3V IMPRESSION: 1. Moderate plantar and posterior calcaneal spurs. 2. Mild degenerative changes in the first and second metatarsophalangeal joints. Electronically signed by: Marisol Rodgers MD 11/09/2023 01:37 PM EDT
== END 2023-10-20 15:28 | disposition home or self-care (01) ==
LOC: HO.HHCX 15:27
PROVIDERS: Visit Provider Nurse Practitioner
DX: M79.672 Pain in left foot (principal)
CPT/HCPCS: 73630

== ENCOUNTER 2023-10-25 08:10 | Outpatient (REF) | payer MEDICAID, SELFPAY ==
[2023-10-25 11:53] LABS: Alanine Aminotransferase 37 U/L (0-31); Albumin Level 3.9 g/dL (3.5-5.0); Alkaline Phosphatase 71 U/L (39-117); Aspartate Amino Transferase 19 U/L (5-31); Bilirubin Direct 0.1 mg/dL (0.0-0.5); Bilirubin Total 0.4 mg/dL (0.0-1.0); Cholesterol 206 mg/dL (<200); HDL Cholesterol 49 mg/dL (>40); LDL Cholesterol Calculated 104 mg/dL (<100); Total Protein 6.6 g/dL (6.5-8.0); Triglycerides 266 mg/dL (<150); Uric Acid 2.9 mg/dL (2.4-5.7)
[2023-10-25 12:29] LABS: Vitamin B12 353 pg/mL (200-900)
== END 2023-10-25 08:11 | disposition home or self-care (01) ==
LOC: HO.HHCL 08:10
PROVIDERS: Referring Provider Internal Medicine Geriatric Medicine; Visit Provider Nurse Practitioner
DX: E11.69 Type 2 diabetes mellitus with other specified complication (principal); Z79.4 Long term (current) use of insulin; R41.3 Other amnesia; M79.672 Pain in left foot
CPT/HCPCS: 36415; 80061; 80076; 82607; 84550

== ENCOUNTER 2023-12-01 08:19 | Day surgery (SDC) | payer MEDICAID, SELFPAY ==
[2023-12-01 08:56] VITALS: BMI 43.9
[2023-12-01 09:10] VITALS: BP 123/64; PULSE 87; RESP 18; TEMP 36.6; O2SAT 97
--- NOTE | 2023-12-01 09:18 | MHC.SHP ---
Pre-Procedural Eval Section A - 24 Hr Update-Section A only Date of Service: 12/01/23 The patient is an INPATIENT: No Changes since office visit: No Cold of Flu in the past 2 weeks, No New Medical Problems, No Changes in Medication and No Patient answered all questions The patient has been examined within 24 hours of the surgical procedure. The History & Physical has been completed within 30 days and I have reviewed it.: Yes Section B - Complete if H&P > 30 days Chief Complaint: Carpal tunnel syndrome, left upper limb Allergies: Allergies Allergy/AdvReac Type Severity Reaction Status Date / Time penicillin G [Penicillin G] Allergy Mild SWELLING Verified 12/01/23 09:07 barium sulfate Allergy Unknown HIVES Verified 12/01/23 09:07 [ORAL CONTRAST] Plan Diagnosis/Plan: Unchanged I have reviewed the history and physical and performed a pertinent physical examination on my patient. No changes have occurred unless specified. Time Spent With Patient Time: Total time managing care of this patient today ____ minutes.
--- NOTE | 2023-12-01 09:19 | W.PM.OPN ---
Operative Note Operative Note Date of Service: 12/01/23 Narrative: Preop diagnosis: 1. Left Carpal tunnel syndrome Postop diagnosis: same Procedure: 1. Left Carpal tunnel release Surgeon: Bhavana Sarkar MD Director Of Category Management: Jose SEGURA Anesthesia: local block using 1% lidocaine with epinephrine Findings: Thickened transverse carpal ligament. EBL: Less than 5 mL Specimens: None Complications: None Disposition: Brought to recovery room in stable condition Plan: Follow-up for 10-14 days for wound check and suture removal Indications: The patient is 58 years old, with left carpal tunnel syndrome that has been unresponsive to nonoperative management. The risks and benefits of operative treatment including but not limited to risk of damage to blood vessels, nerves, tendons, infection, persistent pain, persistent symptoms, or possible need for additional surgery were discussed with the patient and the patient wishes to proceed with surgery. Procedure: Once consent was obtained a local block was performed using a combination of 1% lidocaine with epinephrine. The patient was then brought back to the operating suite and placed on the operative table in supine position. The left upper extremity was prepped and draped in a standard surgical fashion. Once assured that we had a good block, a 2.0 cm longitudinal incision was made centered over the carpal tunnel. The incision was made through the skin to the subcutaneous tissues using a #15 blade. Dissection was made down to the level of the transverse carpal ligament with care being taken to protect the palmar cutaneous nerve. Once the transverse carpal ligament was clearly visualized, a longitudinal incision was made in the transverse carpal ligament 1st using a #15 blade, then using tenotomy scissors under direct visualization. Care was taken to look for and protect the motor branch of the median nerve when seen in this area. Once satisfied with our carpal tunnel release the wound was copiously irrigated with normal saline and hemostasis was obtained with a brief period of local pressure. The skin edges were reapproximated with some 5.0 nylon suture material and a sterile dressing was applied. The patient appears to have tolerated the procedure well and with no complications. All digits were well vascularized at the conclusion of the case.
[2023-12-01 10:33] VITALS: BP 120/82; PULSE 85; RESP 18; O2SAT 97
== END 2023-12-01 10:44 | disposition home or self-care (01) ==
PROVIDERS: PCP Internal Medicine Geriatric Medicine; Visit Provider Orthopaedic Surgery
PROC: (CPT 64721; principal; 2023-12-01 12:10)
DX: G56.02 Carpal tunnel syndrome, left upper limb (principal); R20.0 Anesthesia of skin; R20.2 Paresthesia of skin; E11.9 Type 2 diabetes mellitus without complications; J44.9 Chronic obstructive pulmonary disease, unspecified; E66.01 Morbid (severe) obesity due to excess calories; Z68.41 Body mass index [BMI] 40.0-44.9, adult; F11.90 Opioid use, unspecified, uncomplicated; Z79.4 Long term (current) use of insulin; Z85.72 Personal history of non-Hodgkin lymphomas; Z88.0 Allergy status to penicillin; Z91.041 Radiographic dye allergy status; Z98.890 Other specified postprocedural states; F17.210 Nicotine dependence, cigarettes, uncomplicated
CPT/HCPCS: 64721; J0171; J2003

== ENCOUNTER → 2023-12-01 08:19 | Outpatient (BNV) | payer MEDICAID, SELFPAY | PROVIDERS: PCP Internal Medicine Geriatric Medicine; Visit Provider Orthopaedic Surgery | DX: G56.02 Carpal tunnel syndrome, left upper limb (principal) | CPT/HCPCS: 64721 ==

== ENCOUNTER 2023-12-14 13:14 | Outpatient (AMB) | payer MEDICAID, SELFPAY ==
--- NOTE | 2023-12-14 13:15 | MHC.OFFVIS ---
Intake Visit Reasons: PO LT CTR 12/01/23 AR Intake Note: Sarita is a 58 year old right hand dominant female who presents today post operatively s/p left carpal tunnel release w/ Dr Sarkar DOS: 12/01/23. Patient states she has some numbness and tingling in her hand and states she has some pain in her palm. Allergies penicillin G [Penicillin G] Allergy (Mild, Verified 12/14/23 13:16) SWELLING barium sulfate [ORAL CONTRAST] Allergy (Unknown, Verified 12/14/23 13:16) HIVES cephalexin Allergy (Unknown, Verified 12/14/23 13:16) Unknown HPI HPI PO LT CTR 12/01/23 AR: Details: Patient is a 58-year-old female who presents for postoperative evaluation status post left carpal tunnel release, DOS 12/01/[address] Sarkar. Today, the patient reports that she is feeling well, as experiencing no numbness, tingling, or pain in her left hand at this time. The patient does report that she is having some difficulty with making a full closed fist with the left hand. Patient reports no edema, erythema, ecchymosis, or drainage about the incision site. No other acute complaints or concerns at this time. [facility] Medical History Lymphoma Restrictive lung disease secondary to obesity COPD (chronic obstructive pulmonary disease) Nocturnal hypoxemia DRE (obstructive sleep apnea) Cough Nicotine dependence, cigarettes, uncomplicated Allergic rhinitis Morbid obesity Hyperlipidemia GERD (gastroesophageal reflux disease) Tubular adenoma Chronic idiopathic constipation IBS (irritable bowel syndrome) Back pain Depression Surgical History History of total right knee replacement (TKR) History of appendectomy (~1978) History of (~1986) History of hysterectomy (~1995) History of lithotripsy (~2018) History of carpal tunnel surgery of right wrist (~2020) History of colonoscopy History of esophagogastroduodenoscopy (EGD) Family History Mother Diabetes Heart muscle disorder caused by another medical condition Father Diabetes Epilepsy Sister No problems noted. Sister No problems noted. Sister No problems noted. Sister No problems noted. Sister No problems noted. Brother No problems noted. Brother No problems noted. Brother No problems noted. Brother No problems noted. Brother No problems noted. Brother No problems noted. Daughter No problems noted. Daughter No problems noted. Son No problems noted. Son No problems noted. Son No problems noted. Social History Are you a primary healthcare network pricing consultant to a significant other at home: No Do you presently have visiting nurse or other home services: No Alcohol intake: current Alcohol intake frequency: holidays/special occasions only Patient Tobacco Use Status: Current everyday Tobacco user Cigarettes Per Day: 10 Years Smoked: (onset 13yo, x 42yrs, max 2ppd, now 1/2ppd - 30PYH) Substance Use Type: Opiates Current occupation: rt handed Physical Exam Extrem Other: Neuro: Normal sensation of the tips of all digits of the left hand at this time No thenar or intrinsic wasting. Good APB muscle firing and good finger cross. Vascular: Capillary refill brisk. ROM: With encouragement, Patient can make a fist and extend all their digits. Skin: Well approximated and well healing incision site noted on the volar aspect of the left wrist General: No ecchymosis. No erythema or evidence of infection Assessment & Plan Assessment & Plan (1) Carpal tunnel syndrome of left wrist: Code(s): G56.02 - Carpal tunnel syndrome, left upper limb Category: Medical Plan 1. Carpal tunnel syndrome, left, status post carpal tunnel release DOS 12/01/2023 Patient appears to be recovering well postoperatively Patient is educated about the typical recovery course At this time, patient will be referred for occupational therapy for range of motion, strengthening of the left hand for postoperative stiffness status post carpal tunnel release Patient understands this in his amenable to this plan Patient will follow-up as needed with any acute concerns, or if she has any concerns for range of motion after a few weeks of occupational therapy Orders: Orders OT Evaluation and Treatment Today G56.02 - Carpal tunnel syndrome, left upper limb Coding Level of Care Code Global (54939) Diagnoses Carpal tunnel syndrome of left wrist G56.02
== END 2023-12-14 13:55 | disposition home or self-care (01) ==
PROVIDERS: PCP Internal Medicine Geriatric Medicine
DX: G56.02 Carpal tunnel syndrome, left upper limb (principal)
CPT/HCPCS: 99024

== ENCOUNTER → 2023-12-14 13:14 | Outpatient (BNVA) | payer MEDICAID, SELFPAY | PROVIDERS: PCP Internal Medicine Geriatric Medicine | DX: Z47.89 Encounter for other orthopedic aftercare (principal); Z98.890 Other specified postprocedural states | CPT/HCPCS: 99212 ==

== ENCOUNTER 2024-01-02 11:01 | Outpatient (AMB) | payer MEDICAID, SELFPAY ==
[2024-01-02 11:02] VITALS: BP 134/84; PULSE 77; O2SAT 97; BMI 43.9
--- NOTE | 2024-01-02 11:02 | A.OFFVIS_ITS ---
Vital Signs 01/02/24 11:02 Height 5 ft 2 in Weight 240 lb BMI 43.9 BP 134/84 Blood Pressure Location Rt brachial Position Sitting Pulse 77 Pulse Source Doppler Pulse Oximetry (%) 97 Oxygen Delivery Method Room Air Intake Visit Reasons: DRE (obstructive sleep apnea), Asthma Intake Note: Patient is here to follow up on Asthma, reports no new symptoms Allergies penicillin G [Penicillin G] Allergy (Mild, Verified 01/02/24 11:16) SWELLING barium sulfate [ORAL CONTRAST] Allergy (Unknown, Verified 01/02/24 11:16) HIVES cephalexin Allergy (Unknown, Verified 01/02/24 11:16) Unknown Medication List - Last Reconciled 01/02/24 by Caryl Churchill MD albuterol sulfate 90 mcg/actuation (ProAir HFA) 2 puffs PO Q4-6H PRN albuterol sulfate 2.5 mg (3 mL) inhalation Q4-6H PRN 30 days alcohol swabs (Alcohol Prep Pads) pad topical BID aspirin 1 tab PO QPM atorvastatin 80 mg PO QPM buspirone 15 mg PO BID cetirizine (Zyrtec) 10 mg PO DAILY PRN 14 days clonidine HCl 0.1 mg PO BEDTIME dulaglutide (Trulicity) 3 mg subcut QWEEK esomeprazole magnesium (Nexium) 40 mg PO BID 90 days fluticasone propion-salmeterol 115-21 mcg/actuation (Advair HFA) 2 puffs inhalation Q12H 30 days gabapentin 300 mg PO TID haloperidol 1 mg PO BEDTIME insulin glargine (Lantus Solostar U-100 Insulin) 28 units subcut DAILY insulin lispro (Humalog KwikPen U-200 Insulin) units subcut ipratropium-albuterol 20-100 mcg/actuation (Combivent Respimat) 1 puff PO Q6H lidocaine 5% 1 patch topical DAILY linaclotide (Linzess) 290 mcg PO QAM metformin ER 500 mg PO QPM metoprolol succinate ER 25 mg PO DAILY montelukast (Singulair) 10 mg PO BEDTIME multivitamin (One Daily Multivitamin tablet) 1 tab PO QAM nortriptyline 10 mg PO BEDTIME ondansetron 4 mg PO DAILY PRN oxcarbazepine 450 mg PO BID oxycodone 10 mg PO Q12H PRN oxycodone-acetaminophen 5-325 mg 1 tab PO Q6H PRN paroxetine HCl 40 mg PO BEDTIME pen needle, diabetic (Pentips) As directed polyethylene glycol 3350 (Miralax) 17 grams PO DAILY pyridoxine (vitamin B6) 100 mg PO DAILY 90 days sertraline 100 mg PO DAILY sucralfate 1 g PO BEDTIME tamsulosin 0.4 mg PO QAM tamsulosin 0.4 mg PO BEDTIME 30 days Do you need a note to return to daycare/school/sports/work: No HPI HPI Asthma: Details: THIS 58 YEARS OLD FEMALE, MORBIDLY OBESE, WITH HISTORY OF DRE. BUT NOT ABLE TO USE CPAP, IS ALSO BEING TREATED FOR ASTHMA/COPD. SHE COMES AFTER 6 MONTHS FOR FOLLOW-UP. ADMITS THAT SHE STILL SMOKES ABOUT HALF PACK OF CIGARETTES A DAY. HAS NOT BEEN ABLE TO STOP SMOKING. PARTICIPATES IN ANNUAL LUNG SCREENING PROGRAM. HAS MILD INTERMITTENT NASAL CONGESTION AND USES ZYRTEC 10 MG P.R.N.. SHE IS ALSO USING MONTELUKAST 10 MG DAILY. FOR RESTRICTIVE/OBSTRUCTIVE LUNG DISEASE SHE HAS BEEN USING ADVAIR HFA 2 PUFFS B.I.D.. AND HAS COMBIVENT RESPIMAT WHICH SHE USES Q 6 HOURS P.R.N. FORMERLY [facility], 1928–1983 Medical History Lymphoma Restrictive lung disease secondary to obesity COPD (chronic obstructive pulmonary disease) Nocturnal hypoxemia DRE (obstructive sleep apnea) Cough Nicotine dependence, cigarettes, uncomplicated Allergic rhinitis Morbid obesity Hyperlipidemia GERD (gastroesophageal reflux disease) Tubular adenoma Chronic idiopathic constipation IBS (irritable bowel syndrome) Back pain Depression Surgical History History of total right knee replacement (TKR) History of appendectomy (~1978) History of (~1986) History of hysterectomy (~1995) History of lithotripsy (~2018) History of carpal tunnel surgery of right wrist (~2020) History of colonoscopy History of esophagogastroduodenoscopy (EGD) Family History Mother Diabetes Heart muscle disorder caused by another medical condition Father Diabetes Epilepsy Sister No problems noted. Sister No problems noted. Sister No problems noted. Sister No problems noted. Sister No problems noted. Brother No problems noted. Brother No problems noted. Brother No problems noted. Brother No problems noted. Brother No problems noted. Brother No problems noted. Daughter No problems noted. Daughter No problems noted. Son No problems noted. Son No problems noted. Son No problems noted. Social History Are you a primary respiratory care faculty to a significant other at home: No Do you presently have visiting nurse or other home services: No Alcohol intake: current Alcohol intake frequency: holidays/special occasions only Patient Tobacco Use Status: Current everyday Tobacco user Cigarettes Per Day: 10 Years Smoked: (onset 13yo, x 42yrs, max 2ppd, now 1/2ppd - 30PYH) Substance Use Type: Opiates Current occupation: rt handed Review of Systems Const All systems reviewed & are unremarkable except as noted in HPI and below Eyes Reports no additional complaints ENT Reports no additional complaints and Reports nasal congestion (Mild intermittent) Card Denies chest pain, Denies irregular heart rhythm and Denies leg edema Resp Reports as per HPI GI Reports constipation Reports no additional complaints Musc Reports back pain Skin/Breast Reports system reviewed and no additional complaints, except as documented Neuro Reports no additional complaints Psych Reports no additional complaints Physical Exam Vital Signs: Last Vital Signs Pulse 77 01/02/24 11:02 BP 134/84 01/02/24 11:02 Pulse Ox 97 01/02/24 11:02 Oxygen Delivery Method Room Air 01/02/24 11:02 BMI result Body Mass Index 43.9 Const General: comfortable, no acute distress, alert and awake Orientation/consciousness: patient oriented x3 HEENT Head: Yes normal to inspection General nose exam: No nasal polyps present, No nasal discharge present and Other nasal findings present (She has active nasal congestion on both sides) Face and sinus: Yes sinuses nontender Mouth: oropharynx normal Throat: Yes posterior oropharynx normal Eyes General: appearance normal, both eyes and all related structures Neck Neck: Yes normal visual inspection, Yes no lymphadenopathy, Yes trachea midline and Yes no JVD Thyroid: Thyroid normal Chest Chest palpation & inspection: normal inspection of the chest, normal palpation of entire chest wall and no tenderness Resp Other: Percussion note resonant, breath sounds are distant, especially decreased over the basilar areas, with prolonged expiratory phase . However the lungs are clear on both sides and I did not hear any wheezes or crepitations. Cardio Palpation: normal PMI Rate: regular rate Rhythm: regular rhythm Heart sounds: no gallops and no murmurs GI Palpation (GI): Soft to palpation, nontender, No hepatosplenomegaly present, no masses and Other GI palpation findings present (Abdomen is moderately obese) Auscultation: normal bowel sounds Back/Spine/Pelvis Thoracic/Lumbar Spine: thoracic and lumbar spine normal to inspection and thoraco-lumbar ROM limited Skin General skin exam: no rashes or lesions noted Neuro General: patient oriented x3 and no focal motor deficits Cranial nerves: Yes CN's II-XII intact bilaterally Extrem General: Yes normal to inspection, Yes no clubbing, cyanosis or edema and Yes no calf tenderness Right lower extremity: joint enlargement noted (Right knee moderately enlarged and tender) Psych Appearance: grossly normal and well kempt Mental Status: mental status grossly normal Speech and movement: Normal speech and movement present Assessment & Plan Assessment & Plan (1) DRE (obstructive sleep apnea): Comment: (DRE DIAGNOSED IN 2007, WAS NOT ABLE TO TOLERATE THE CPAP. HAS BEEN USING O2 - 2L at night) CLAIMS THAT SHE USES O2 REGULARLY AND SLEEPS GOOD. Code(s): G47.33 - Obstructive sleep apnea (adult) (pediatric) Category: Medical Plan: NEEDS TO LOSE WEIGHT BUT NOT ABLE TO DO THAT. CONTINUE TO USE O2 2 L/MINUTE AT NIGHT . (2) Morbid obesity: Comment: REMAINS GROSSLY OBESE, SHE IS NOT IN ANY REGULAR WEIGHT MANAGEMENT PROGRAM. WEIGHT HAS REMAINED UNCHANGED. Code(s): E66.01 - Morbid (severe) obesity due to excess calories Category: Medical Plan: THERE IS NO POTENTIAL FOR HER TO LOSE WEIGHT (3) Allergic rhinitis: Comment: (Chronic, intermittent) controlled with montelukast 10 mg daily, and use of Zyrtec p.r.n. Code(s): J30.9 - Allergic rhinitis, unspecified Category: Medical Plan: Continue montelukast 10 mg daily. Use Zyrtec 10 mg once a day p.r.n. (4) COPD (chronic obstructive pulmonary disease): Comment: (COPD related to Smoking) has remained unchanged, continue to have some cough and shortness of breath on exertion. Continues to smoke and the cough is mainly due to smoking. Code(s): J44.9 - Chronic obstructive pulmonary disease, unspecified Category: Medical Plan: Advised to continue using Advair HFA 115-21 2 puffs b.i.d.. Combivent Respimat 1 inhalation Q 6 hours while awake Albuterol HFA 2 puffs Q 6 hours p.r.n. (5) Restrictive lung disease secondary to obesity: Comment: Restrictive component is secondary to her morbid obesity. Code(s): J98.4 - Other disorders of lung; E66.9 - Obesity, unspecified Category: Medical Plan: Stressed importance of weight loss and doing deep breathing exercises (6) Nocturnal hypoxemia: Comment: (Nocturnal Hypoxia - part of DRE and sleep related hypoventilation) Code(s): G47.34 - Idiopathic sleep related nonobstructive alveolar hypoventilation Category: Medical Plan: Continue to use O2 2 L/minute at night Coding Level of Care Code Est Pt Level 4 (56880) Diagnoses DRE (obstructive sleep apnea) G47.33 Morbid obesity E66.01 Allergic rhinitis J30.9 COPD (chronic obstructive pulmonary disease) J44.9 Restrictive lung disease secondary to obesity J98.4; E66.9 Nocturnal hypoxemia G47.34
== END 2024-01-02 11:23 | disposition home or self-care (01) ==
PROVIDERS: PCP Internal Medicine Geriatric Medicine; Visit Provider Internal Medicine
DX: G47.33 Obstructive sleep apnea (adult) (pediatric) (principal); E66.01 Morbid (severe) obesity due to excess calories; J30.9 Allergic rhinitis, unspecified; J44.9 Chronic obstructive pulmonary disease, unspecified; J98.4 Other disorders of lung; E66.9 Obesity, unspecified; G47.34 Idiopathic sleep related nonobstructive alveolar hypoventilation
CPT/HCPCS: 99214

== ENCOUNTER → 2024-01-02 11:01 | Outpatient (BNVA) | payer MEDICAID, SELFPAY | PROVIDERS: PCP Internal Medicine Geriatric Medicine; Visit Provider Internal Medicine | DX: J44.9 Chronic obstructive pulmonary disease, unspecified (principal); J30.9 Allergic rhinitis, unspecified; J98.4 Other disorders of lung; G47.33 Obstructive sleep apnea (adult) (pediatric); E66.01 Morbid (severe) obesity due to excess calories; F17.210 Nicotine dependence, cigarettes, uncomplicated; G47.34 Idiopathic sleep related nonobstructive alveolar hypoventilation; Z68.41 Body mass index [BMI] 40.0-44.9, adult | CPT/HCPCS: 99212 ==

== ENCOUNTER 2024-01-16 10:16 | Outpatient (REF) | payer MEDICAID, SELFPAY | END 2024-01-16 10:17 | disposition home or self-care (01) | LOC: HO.US 10:16 | PROVIDERS: PCP Internal Medicine Geriatric Medicine; Visit Provider Nurse Practitioner Family | DX: N20.0 Calculus of kidney (principal) | CPT/HCPCS: 76775 ==

== ENCOUNTER 2024-01-23 09:54 | Outpatient (REF) | payer MEDICAID, SELFPAY ==
--- NOTE | ~2024-01-23 | XR_ITS ---
EXAMINATION: XR HIP, LEFT CLINICAL INFORMATION: left hip pain/sp fall COMPARISON: None available. TECHNIQUE: Two views of the left hip. FINDINGS: No fracture. Alignment is anatomic. Hip joint space is maintained. Soft tissues are unremarkable. Surgical clips noted in the pelvis XR/XR hip LT min 2V IMPRESSION: Normal left hip. Electronically signed by: Tyron Santos MD 01/23/2024 03:10 PM RAYNA MARKS
--- NOTE | ~2024-01-23 | XR_ITS ---
EXAMINATION: XR ELBOW, LEFT CLINICAL INFORMATION: left elbowpain/ sp fall 3m ago COMPARISON: Prior x-ray of the left elbow 08/18/2023 TECHNIQUE: Four views of the left elbow. FINDINGS: The bones and soft tissues are normal. No fracture or joint effusion. Alignment is anatomic. Joint spaces are maintained. XR/XR elbow LT min 3V IMPRESSION: Normal left elbow. Electronically signed by: Tyron Santos MD 01/23/2024 03:10 PM RAYNA MARKS
== END 2024-01-23 09:55 | disposition home or self-care (01) ==
LOC: HO.HHCX 09:54
PROVIDERS: Visit Provider Internal Medicine
DX: M25.552 Pain in left hip (principal); M25.522 Pain in left elbow
CPT/HCPCS: 73080; 73502

== ENCOUNTER 2024-01-24 09:58 | Outpatient (REF) | payer MEDICAID, SELFPAY ==
--- NOTE | ~2024-01-24 | XR_ITS ---
EXAMINATION: XR LUMBOSACRAL SPINE CLINICAL INFORMATION: Acute left-sided low back pain with left-sided sciatica. COMPARISON: 04/06/2023 TECHNIQUE: Three views of the lumbosacral spine. FINDINGS: Dextroscoliosis of the lumbar spine. Surgical clips in the pelvis. Degenerative changes in the bilateral sacroiliac joints. Redemonstration of mild anterior wedge compression deformity of L4 vertebral body. Facet arthritis in the lower lumbar spine. Moderate multilevel lumbar spondylosis with loss of disc space height at L4-L5 and L5-S1. XR/XR lumbar spine 2-3V IMPRESSION: 1. Redemonstration of mild anterior wedge compression deformity of L4 vertebral body. 2. Moderate multilevel lumbar spondylosis with loss of disc space height at L4-L5 and L5-S1. This study was presented today January 24, 2024 for interpretation. Stat results provided at this time as requested by referring provider. Electronically signed by: Marisol Rodgers MD 01/24/2024 01:05 PM RAYNA MARKS
== END 2024-01-24 09:59 | disposition home or self-care (01) ==
LOC: HO.HHCX 09:58
PROVIDERS: Visit Provider Family Medicine
DX: M54.42 Lumbago with sciatica, left side (principal)
CPT/HCPCS: 72100

== ENCOUNTER → 2024-02-01 09:31 | Outpatient (BNV) | payer MEDICAID, SELFPAY | PROVIDERS: PCP Internal Medicine Geriatric Medicine; Visit Provider Radiology Diagnostic Radiology | DX: M54.42 Lumbago with sciatica, left side (principal) | CPT/HCPCS: 72148 ==

== ENCOUNTER 2024-02-01 09:55 | Outpatient (REF) | payer MEDICAID, SELFPAY ==
--- NOTE | ~2024-02-01 | MR_ITS ---
EXAMINATION: MR LUMBAR SPINE WITHOUT CONTRAST CLINICAL INFORMATION: Severe and worsening low back pain radiating into left lower extremity. Left sciatica. COMPARISON: None available. TECHNIQUE: MRI of the lumbar spine was obtained using routine sequences without contrast. FINDINGS: Last rib-bearing vertebra labeled T12. Multilevel disc desiccation, L3-4 to L5-S1 and T11-12. Marginal osteophyte formation, T11-12, L3-4 levels. Subtle grade 1 retrolisthesis, L4-5 and L2-3. No bone marrow STIR signal abnormality. Conus medullaris ends at superior endplate of L1 with normal signal. T12-L1: No disc herniation. No neuroforamina stenosis. L1-2: No disc herniation. No neuroforamina stenosis. L2-3: Broad-based disc bulging. Facet joint hypertrophy. No neuroforamina stenosis. L3-4: Broad-based disc bulging. Facet joint and ligamentum flavum hypertrophy. Reduced AP diameter of the thecal sac and the neural foramina. L4-5: Central broad-based disc herniation resulting in ventral deformity of the thecal sac. Reduced AP diameter of the thecal sac. Facet joint and ligamentum flavum hypertrophy. Bilateral neuroforamina narrowing. L5-S1: Broad-based disc bulging. Facet joint hypertrophy. Reduced AP diameter of the thecal sac and bilateral neuroforamina narrowing likely encroaching the exiting nerve roots. No prevertebral compartment hematoma, mass or fluid collection. Extrarenal pelvises, bilaterally. MR/MR lumbar spine wo con IMPRESSION: Multilevel spondylosis and Central broad-based disc herniation L4-5 encroaching the neural elements of the thecal sac and the exiting nerve roots at L4-5 and to a lesser extent L5-S1. Electronically signed by: Felix Fall MD 02/01/2024 11:01 AM EST
== END 2024-02-01 09:56 | disposition home or self-care (01) ==
LOC: HO.MRI 09:55
PROVIDERS: PCP Internal Medicine Geriatric Medicine; Visit Provider Family Medicine
DX: M54.42 Lumbago with sciatica, left side (principal)
CPT/HCPCS: 72148

== ENCOUNTER 2024-02-20 10:31 | Outpatient (AMB) | payer MEDICAID, SELFPAY ==
--- NOTE | 2024-02-20 10:35 | A.OFFVIS_ITS ---
Intake Visit Reasons: 6m/US(set) Intake Note: Patient presents for follow visit on: nephrolithiasis and ultrasound results Imagin01/16/24 Urology Medications: tamsulosin Blood Thinner: aspirin Thread Dresser Required: Yes Accompanied by: Unknown Allergies penicillin G [Penicillin G] Allergy (Mild, Verified 02/20/24 11:02) SWELLING barium sulfate [ORAL CONTRAST] Allergy (Unknown, Verified 02/20/24 11:02) HIVES cephalexin Allergy (Unknown, Verified 02/20/24 11:02) Unknown Medication List - Last Reconciled 02/20/24 by QAMAR Delgado- albuterol sulfate 90 mcg/actuation (ProAir HFA) 2 puffs PO Q4-6H PRN albuterol sulfate 2.5 mg (3 mL) inhalation Q4-6H PRN 30 days alcohol swabs (Alcohol Prep Pads) pad topical BID aspirin 1 tab PO QPM atorvastatin 80 mg PO QPM buspirone 15 mg PO BID cetirizine (Zyrtec) 10 mg PO DAILY PRN 14 days clonidine HCl 0.1 mg PO BEDTIME dulaglutide (Trulicity) 3 mg subcut QWEEK esomeprazole magnesium (Nexium) 40 mg PO BID 90 days fluticasone propion-salmeterol 115-21 mcg/actuation (Advair HFA) 2 puffs inhalation Q12H 30 days gabapentin 300 mg PO TID haloperidol 1 mg PO BEDTIME insulin glargine (Lantus Solostar U-100 Insulin) 28 units subcut DAILY insulin lispro (Humalog KwikPen U-200 Insulin) units subcut ipratropium-albuterol 20-100 mcg/actuation (Combivent Respimat) 1 puff PO Q6H lidocaine 5% 1 patch topical DAILY linaclotide (Linzess) 290 mcg PO QAM metformin ER 500 mg PO QPM metoprolol succinate ER 25 mg PO DAILY montelukast (Singulair) 10 mg PO BEDTIME multivitamin (One Daily Multivitamin tablet) 1 tab PO QAM nortriptyline 10 mg PO BEDTIME ondansetron 4 mg PO DAILY PRN oxcarbazepine 450 mg PO BID oxycodone 10 mg PO Q12H PRN oxycodone-acetaminophen 5-325 mg 1 tab PO Q6H PRN paroxetine HCl 40 mg PO BEDTIME pen needle, diabetic (Pentips Pen Needle) As directed polyethylene glycol 3350 (Miralax) 17 grams PO DAILY pyridoxine (vitamin B6) 100 mg PO DAILY 90 days sertraline 100 mg PO DAILY sucralfate 1 g PO BEDTIME tamsulosin 0.4 mg PO QAM tamsulosin 0.4 mg PO BEDTIME 30 days HPI Comments Details: Sarita is a pleasant 58-year-old Yi-speaking female patient of Dr. Shaffer who was accompanied by her daughter at today's office visit.. She has a past medical history of oxygen dependence, chronic idiopathic constipation, IBS, back pain, GERD, hyperlipidemia, depression, diabetes, restrictive lung disease, smoker, obstructive sleep apnea, and obesity. She presents to the office today for follow-up of her kidney male rotation and nephrolithiasis. In discussion with the patient today she continues to report left-sided flank pain. Recent renal imaging results remain pending however unofficial report 01/14 notes left-sided obstructing UPJ stone measuring 0.9 x 0.3 x 0.7 mm with mild hydro. Right kidney with no calculi and or hydronephrosis. In assessment of the patient today no CVA tenderness noted bilaterally however patient reporting ongoing intermittent left-sided flank pain. In office urinalysis results reviewed with the patient today. We discussed obtaining CT KUB to further assess surgical intervention with ESWL versus ureteroscopy. She otherwise denies urinary urgency, urinary frequency, incontinence, nocturia, dysuria, foul smelling urine, changes to urinary stream, fever, and or chills. She otherwise offers no other issues or concerns at this time. [facility] Medical History Lymphoma Restrictive lung disease secondary to obesity COPD (chronic obstructive pulmonary disease) Nocturnal hypoxemia DRE (obstructive sleep apnea) Cough Nicotine dependence, cigarettes, uncomplicated Allergic rhinitis Morbid obesity Hyperlipidemia GERD (gastroesophageal reflux disease) Tubular adenoma Chronic idiopathic constipation IBS (irritable bowel syndrome) Back pain Depression Surgical History History of total right knee replacement (TKR) History of appendectomy (~1978) History of (~1986) History of hysterectomy (~1995) History of lithotripsy (~2018) History of carpal tunnel surgery of right wrist (~2020) History of colonoscopy History of esophagogastroduodenoscopy (EGD) Family History Mother Diabetes Heart muscle disorder caused by another medical condition Father Diabetes Epilepsy Sister No problems noted. Sister No problems noted. Sister No problems noted. Sister No problems noted. Sister No problems noted. Brother No problems noted. Brother No problems noted. Brother No problems noted. Brother No problems noted. Brother No problems noted. Brother No problems noted. Daughter No problems noted. Daughter No problems noted. Son No problems noted. Son No problems noted. Son No problems noted. Social History Are you a primary home care companion to a significant other at home: No Do you presently have visiting nurse or other home services: No Alcohol intake: current Alcohol intake frequency: holidays/special occasions only Patient Tobacco Use Status: Current everyday Tobacco user Cigarettes Per Day: 10 Years Smoked: (onset 13yo, x 42yrs, max 2ppd, now 1/2ppd - 30PYH) Substance Use Type: Opiates Current occupation: rt handed Review of Systems Const Reports as per HPI Eyes Reports no additional complaints ENT Reports no additional complaints Card Reports as per HPI Resp Reports as per HPI GI Reports as per HPI Reports as per HPI Musc Reports as per HPI Neuro Reports no additional complaints Psych Reports no additional complaints Endo Reports as per HPI Sung/Lymph Reports no additional complaints Aller/Immun Reports no additional complaints Physical Exam Const General: cooperative, healthy appearing, comfortable, no acute distress, well developed, alert and awake Nutritional Appearance: overweight Orientation/consciousness: patient oriented x3 Limitations: no limitations HEENT Head: Yes normal to inspection, Yes normocephalic and Yes atraumatic Ears: hearing grossly normal bilaterally Eyes General: appearance normal, both eyes and all related structures Neck Neck: Yes normal visual inspection and Yes trachea midline Chest Chest palpation & inspection: normal inspection of the chest Resp Effort & Inspection: normal respiratory effort and able to speak in complete sentences Cardio Rate: regular rate GI Inspection: Yes normal to inspection General: Yes no CVA tenderness Back/Spine/Pelvis Back: no CVA tenderness Skin General skin exam: no rashes or lesions noted Neuro General: patient oriented x3 Extrem General: Yes normal to inspection Psych Appearance: grossly normal and well kempt Mental Status: mental status grossly normal Speech and movement: Normal speech and movement present and Clear speech present Affect: normal affect Attitude: cooperative Thought process: Normal thought process present Thought content: Normal thought content present Insight: Fair insight present (Psych) Judgement: Fair judgement present (Psych) Results AMB Urinalysis, Automated UA Leukoctes 0 Mary/uL Last Edit by [employer] on 02/20/24 11:13 UA Nitrite Last Edit by [employer] on 02/20/24 11:13 UA Urobilinogen 0.2 mg/dL Last Edit by [employer] on 02/20/24 11:13 UA Protein 0 mg/dL Last Edit by [employer] on 02/20/24 11:13 UA pH 6.0 Last Edit by [employer] on 02/20/24 11:13 UA Blood 0 Doc/uL Last Edit by [employer] on 02/20/24 11:13 UA Specific [place] 1.025 Last Edit by [employer] on 02/20/24 11:13 UA Ketone Last Edit by [employer] on 02/20/24 11:13 UA Bilirubin 0 mg/dL Last Edit by [employer] on 02/20/24 11:13 UA Glucose 0 mg/dL Last Edit by [employer] on 02/20/24 11:13 Results Reviewed Results Reviewed: Laboratory Last Values Urine pH (Auto) 6.0 02/20/24 11:11 Specific [place] (Auto) 1.025 02/20/24 11:11 Urine Protein (Auto) 0 mg/dL 02/20/24 11:11 Glucose (UA)(Auto) 0 mg/dL 02/20/24 11:11 Urine Blood (Auto) 0 Doc/uL 02/20/24 11:11 Urine Bilirubin (Auto) 0 mg/dL 02/20/24 11:11 Urine Urobilinogen (Auto) 0.2 mg/dL 02/20/24 11:11 Leukocyte Esterase (Auto) 0 Mary/uL 02/20/24 11:11 Assessment & Plan Assessment & Plan (1) Nephrolithiasis: Code(s): N20.0 - Calculus of kidney Category: Medical (2) Flank pain: Code(s): R10.9 - Unspecified abdominal pain Category: Medical Plan In office urinalysis results reviewed with the patient today; as noted above. Will obtain stat CT KUB for further assessment evaluation. Recent on official renal ultrasound results reviewed with the patient today; as noted above. No CVA tenderness noted bilaterally. Discussed worsening symptoms to seek medical treatment. Follow-up in 1 week with imaging to be completed prior; or sooner with any issues, concerns, and or questions. Orders: Orders AMB Urinalysis Automated Today Z13.9 - Encounter for screening, unspecified CT kidney stone Today N20.0 - Calculus of kidney, R10.9 - Unspecified abdominal pain Patient Instructions: The patient had an opportunity to ask questions regarding the treatment plan. All questions were answered. Physical exam, labs, and imaging were discussed and reviewed in detail. As well as risks, benefits, and discussion of treatment choices. No major barriers to understanding were identified. The patient expressed understanding and agreement with the above treatment plan. The patient was made aware they should contact our office by phone for worsening of their current condition, the appearance of new symptoms, or with any questions or concerns. Compliance is encouraged with any medications and follow up testing that is ordered. It is a privilege to be allowed the opportunity to participate in? your urological care.? Again, if you have any questions or concerns If you have any questions or concerns please do not hesitate to contact me. The office is [phone]. This note is constructed using voice recognition software. While every effort has been made to ensure accuracy flask handler errors may have been included. Yours sincerely, DEMETRIUS Delgado Coding Level of Care Code Est Pt Level 3 (23436) Complex EM visit Add On G2211 Diagnoses Nephrolithiasis N20.0 Flank pain R10.9
== END 2024-02-20 11:08 | disposition home or self-care (01) ==
PROVIDERS: PCP Internal Medicine Geriatric Medicine; Visit Provider Nurse Practitioner Family
DX: N20.0 Calculus of kidney (principal); R10.9 Unspecified abdominal pain; Z13.9 Encounter for screening, unspecified
CPT/HCPCS: 99213

== ENCOUNTER → 2024-02-20 10:31 | Outpatient (BNVA) | payer MEDICAID, SELFPAY | PROVIDERS: PCP Internal Medicine Geriatric Medicine; Visit Provider Nurse Practitioner Family | DX: N20.0 Calculus of kidney (principal); R10.9 Unspecified abdominal pain | CPT/HCPCS: 81003; 99212 ==

== ENCOUNTER 2024-02-21 13:52 | Outpatient (REF) | payer MEDICAID, SELFPAY ==
--- NOTE | ~2024-02-21 | CT_ITS ---
CLINICAL HISTORY: N20.0 - Calculus of kidney CT abdomen and pelvis without IV contrast. COMPARISON: None FINDINGS: Minimal ground-glass tree-in-bud nodularity within the left lower lobe. Normal gallbladder. Noncontrast appearance of the liver, spleen, pancreas and adrenal glands are unremarkable. No right-sided hydronephrosis. No right renal or ureteral calculus. Nonobstructing 2 mm left renal calculus. Small extrarenal pelvis present on the left. No left hydroureter. No left ureteral calculus. Appendix is not seen. Mild colonic stool burden. No bowel obstruction. No mesenteric or retroperitoneal lymphadenopathy. Mild aortoiliac atherosclerotic vascular calcifications. Urinary bladder is unremarkable given degree of distention. No adnexal mass. Mild spondylosis. No acute fracture identified. IMPRESSION: 1. Nonobstructing 2 mm left renal calculus. No evidence of renal obstruction. No ureteral calculus bilaterally. This document has been electronically signed by: Beka Noguera MD on 02/21/2024 15:09:17
== END 2024-02-21 13:53 | disposition home or self-care (01) ==
LOC: HO.CT 13:52
PROVIDERS: PCP Internal Medicine Geriatric Medicine; Visit Provider Nurse Practitioner Family
DX: N20.0 Calculus of kidney (principal); R10.9 Unspecified abdominal pain
CPT/HCPCS: 74176

== ENCOUNTER → 2024-02-21 13:55 | Outpatient (BNV) | payer MEDICAID, SELFPAY | PROVIDERS: PCP Internal Medicine Geriatric Medicine; Visit Provider Radiology Diagnostic Radiology | DX: N20.0 Calculus of kidney (principal) | CPT/HCPCS: 74176 ==

== ENCOUNTER 2024-03-05 08:30 | Outpatient (AMB) | payer MEDICAID, SELFPAY ==
--- NOTE | 2024-03-05 08:55 | A.OFFVIS_ITS ---
Intake Visit Reasons: 1w/CT(set) Intake Note: Patient is present for 1W/CT Urology Medication:TAMSULOSIN,VITAMIN B6 Antibiotic Allergy:PENICILLIN,BARIUM SULFA,CEPHALEXIN Blood Thinner:ASPIRIN TODAY'S PVR:10ML'S Quality Systems Engineer Required: No Allergies penicillin G [Penicillin G] Allergy (Mild, Verified 03/05/24 09:24) SWELLING barium sulfate [ORAL CONTRAST] Allergy (Unknown, Verified 03/05/24 09:24) HIVES cephalexin Allergy (Unknown, Verified 03/05/24 09:24) Unknown Medication List - Last Reconciled 03/05/24 by QAMAR Delgado- albuterol sulfate 90 mcg/actuation (ProAir HFA) 2 puffs PO Q4-6H PRN albuterol sulfate 2.5 mg (3 mL) inhalation Q4-6H PRN 30 days alcohol swabs (Alcohol Prep Pads) pad topical BID aspirin 1 tab PO QPM atorvastatin 80 mg PO QPM buspirone 15 mg PO BID cetirizine (Zyrtec) 10 mg PO DAILY PRN 14 days clonidine HCl 0.1 mg PO BEDTIME dulaglutide (Trulicity) 3 mg subcut QWEEK esomeprazole magnesium (Nexium) 40 mg PO BID 90 days fluticasone propion-salmeterol 115-21 mcg/actuation (Advair HFA) 2 puffs inhalation Q12H 30 days gabapentin 300 mg PO TID haloperidol 1 mg PO BEDTIME insulin glargine (Lantus Solostar U-100 Insulin) 28 units subcut DAILY insulin lispro (Humalog KwikPen U-200 Insulin) units subcut ipratropium-albuterol 20-100 mcg/actuation (Combivent Respimat) 1 puff PO Q6H lidocaine 5% 1 patch topical DAILY linaclotide (Linzess) 290 mcg PO QAM metformin ER 500 mg PO QPM metoprolol succinate ER 25 mg PO DAILY montelukast (Singulair) 10 mg PO BEDTIME multivitamin (One Daily Multivitamin tablet) 1 tab PO QAM nortriptyline 10 mg PO BEDTIME ondansetron 4 mg PO DAILY PRN oxcarbazepine 450 mg PO BID oxycodone-acetaminophen 5-325 mg 1 tab PO Q6H PRN paroxetine HCl 40 mg PO BEDTIME pen needle, diabetic (Pentips Pen Needle) As directed polyethylene glycol 3350 (Miralax) 17 grams PO DAILY pyridoxine (vitamin B6) 100 mg PO DAILY 90 days sertraline 100 mg PO DAILY sucralfate 1 g PO BEDTIME tamsulosin 0.4 mg PO BEDTIME 30 days HPI Comments Details: Sarita is a pleasant 58-year-old Turkish-speaking female patient of Dr. Shaffer. She has a past medical history of oxygen dependence, chronic idiopathic constipation, IBS, back pain, GERD, hyperlipidemia, depression, diabetes, restrictive lung disease, smoker, obstructive sleep apnea, and obesity. She presents to the office today for follow-up of her kidney male rotation and nephrolithiasis. Of note, patient was seen approximately 2 weeks ago at which time a stat CT KUB was ordered for further assessment evaluation as patient had been reporting left-sided flank pain and most recent renal ultrasound 01/14 notedleft-sided obstructing UPJ stone measuring 0.9 x 0.3 x 0.7 mm with mild hydro. Right kidney with no calculi and or hydronephrosis. Stat CT KUB results reviewed with the patient today nonobstructing 2 mm left renal calculus. No evidence of renal obstruction. No ureteral calculus bilaterally. She reports pain she had been experiencing shortly subsided after her follow-up. She currently denies any bothersome urinary issues or concerns. When asked she reports compliance with vitamin B6 as prescribed. She denies urinary urgency, urinary frequency, incontinence, nocturia, dysuria, foul smelling urine, changes to urinary stream, fever, and or chills. She otherwise offers no other issues or concerns at this time. [facility] Medical History Lymphoma Restrictive lung disease secondary to obesity COPD (chronic obstructive pulmonary disease) Nocturnal hypoxemia DRE (obstructive sleep apnea) Cough Nicotine dependence, cigarettes, uncomplicated Allergic rhinitis Morbid obesity Hyperlipidemia GERD (gastroesophageal reflux disease) Tubular adenoma Chronic idiopathic constipation IBS (irritable bowel syndrome) Back pain Depression Surgical History History of total right knee replacement (TKR) History of appendectomy (~1978) History of (~1986) History of hysterectomy (~1995) History of lithotripsy (~2018) History of carpal tunnel surgery of right wrist (~2020) History of colonoscopy History of esophagogastroduodenoscopy (EGD) Family History Mother Diabetes Heart muscle disorder caused by another medical condition Father Diabetes Epilepsy Sister No problems noted. Sister No problems noted. Sister No problems noted. Sister No problems noted. Sister No problems noted. Brother No problems noted. Brother No problems noted. Brother No problems noted. Brother No problems noted. Brother No problems noted. Brother No problems noted. Daughter No problems noted. Daughter No problems noted. Son No problems noted. Son No problems noted. Son No problems noted. Social History Are you a primary career information specialist to a significant other at home: No Do you presently have visiting nurse or other home services: No Alcohol intake: current Alcohol intake frequency: holidays/special occasions only Patient Tobacco Use Status: Current everyday Tobacco user Cigarettes Per Day: 10 Years Smoked: (onset 13yo, x 42yrs, max 2ppd, now 1/2ppd - 30PYH) Substance Use Type: Opiates Current occupation: rt handed Review of Systems Const Reports as per HPI Eyes Reports no additional complaints ENT Reports no additional complaints Card Reports as per HPI Resp Reports as per HPI GI Reports as per HPI Reports as per HPI Musc Reports as per HPI Neuro Reports no additional complaints Psych Reports no additional complaints Endo Reports as per HPI Sung/Lymph Reports no additional complaints Aller/Immun Reports no additional complaints Physical Exam Const General: cooperative, healthy appearing, comfortable, no acute distress, well developed, alert and awake Nutritional Appearance: overweight Orientation/consciousness: patient oriented x3 Limitations: no limitations HEENT Head: Yes normal to inspection, Yes normocephalic and Yes atraumatic Ears: hearing grossly normal bilaterally Eyes General: appearance normal, both eyes and all related structures Neck Neck: Yes normal visual inspection and Yes trachea midline Chest Chest palpation & inspection: normal inspection of the chest Resp Effort & Inspection: normal respiratory effort and able to speak in complete sentences Cardio Rate: regular rate GI Inspection: Yes normal to inspection General: Yes no CVA tenderness Back/Spine/Pelvis Back: no CVA tenderness Skin General skin exam: no rashes or lesions noted Neuro General: patient oriented x3 Extrem General: Yes normal to inspection Psych Appearance: grossly normal and well kempt Mental Status: mental status grossly normal Speech and movement: Normal speech and movement present and Clear speech present Affect: normal affect Attitude: cooperative Thought process: Normal thought process present Thought content: Normal thought content present Insight: Fair insight present (Psych) Judgement: Fair judgement present (Psych) Office Procedures Post Void Residual Post Residual Void Post Void Residual (PVR): 10 [id number] Void Residual by ultrasound Results Reviewed Results Reviewed: Date of Service: 02/21/24 Procedure(s): CT kidney stone FINDINGS: Minimal ground-glass tree-in-bud nodularity within the left lower lobe. Normal gallbladder. Noncontrast appearance of the liver, spleen, pancreas and adrenal glands are unremarkable. No right-sided hydronephrosis. No right renal or ureteral calculus. Nonobstructing 2 mm left renal calculus. Small extrarenal pelvis present on the left. No left hydroureter. No left ureteral calculus. Appendix is not seen. Mild colonic stool burden. No bowel obstruction. No mesenteric or retroperitoneal lymphadenopathy. Mild aortoiliac atherosclerotic vascular calcifications. Urinary bladder is unremarkable given degree of distention. No adnexal mass. Mild spondylosis. No acute fracture identified. IMPRESSION: 1. Nonobstructing 2 mm left renal calculus. No evidence of renal obstruction. No ureteral calculus bilaterally. Assessment & Plan Assessment & Plan (1) Nephrolithiasis: Code(s): N20.0 - Calculus of kidney Category: Medical (2) Flank pain: Code(s): R10.9 - Unspecified abdominal pain Category: Medical Plan Unable to obtain urine for urinalysis as patient unable to void. Patient reports flank pain she had been experiencing has since subsided. Recent CT KUB results reviewed with the patient today; as noted above. Patient currently denies any bothersome urinary issues or concerns. She reports be happy with current voiding parameters. Continue vitamin B6 as discussed and prescribed. Discussed, educated, and stressed the importance of adequate hydration relation to nephrolithiasis well as overall health and well-being. Continue adding 1 oz of lemon juice to water daily. Will obtain renal ultrasound in 6 months for surveillance monitoring. Follow-up in 6 months with imaging to be completed prior; or sooner with any issues, concerns, and or questions. Orders: Orders US renal BI 6 Months N20.0 - Calculus of kidney Medications: Discontinued oxycodone-acetaminophen 5-325 mg Partial Fill upon patient request. Discontinued Reason: Patient Completed Course 1 tab PO Q6H PRN 5 tabs 0RF pain, severe tamsulosin Discontinued Reason: Doctor's Order 0.4 mg PO BEDTIME 30 days 30 caps 0RF Patient Instructions: The patient had an opportunity to ask questions regarding the treatment plan. All questions were answered. Physical exam, labs, and imaging were discussed and reviewed in detail. As well as risks, benefits, and discussion of treatment choices. No major barriers to understanding were identified. The patient expressed understanding and agreement with the above treatment plan. The patient was made aware they should contact our office by phone for worsening of their current condition, the appearance of new symptoms, or with any que stions or concerns. Compliance is encouraged with any medications and follow up testing that is ordered. It is a privilege to be allowed the opportunity to participate in? your urological care.? Again, if you have any questions or concerns If you have any questions or concerns please do not hesitate to contact me. The office is [phone]. This note is constructed using voice recognition software. While every effort has been made to ensure accuracy burlap worker errors may have been included. Yours sincerely, DEMETRIUS Delgado Coding Level of Care Code Est Pt Level 3 (09722) Diagnoses Nephrolithiasis N20.0 Flank pain R10.9 CPT Codes Post Residual Void - PVR CPT Code: 62736-Hoju Void Residual by ultrasound ([id number])
== END 2024-03-05 09:27 | disposition home or self-care (01) ==
PROVIDERS: PCP Internal Medicine Geriatric Medicine; Visit Provider Nurse Practitioner Family
DX: N20.0 Calculus of kidney (principal); R10.9 Unspecified abdominal pain
CPT/HCPCS: 99213

== ENCOUNTER → 2024-03-05 08:30 | Outpatient (BNVA) | payer MEDICAID, SELFPAY | PROVIDERS: PCP Internal Medicine Geriatric Medicine; Visit Provider Nurse Practitioner Family | DX: N20.0 Calculus of kidney (principal); R10.9 Unspecified abdominal pain | CPT/HCPCS: 51798; 99212 ==

== ENCOUNTER 2024-03-30 13:04 | Emergency (ER) | payer MEDICAID, SELFPAY ==
[2024-03-30 13:13] VITALS: BP 135/74; PULSE 92; RESP 18; TEMP 36.6; O2SAT 98; BMI 41.1
--- NOTE | 2024-03-30 13:14 | ED.WOUNDLAC ---
HPI - Wound/Laceration General Chief Complaint: Animal Bite Stated Complaint: Dog Bite R Hand 03/25/24 Time Seen by Provider: 03/30/24 19:12 Source: patient Mode of arrival: ambulatory Limitations: no limitations History of Present Illness ED Provider: Dr. Gracia Bagley HPI narrative: Patient comes to the emergency room complaining of a dog bite to the right hand. Patient states that a dog living in her apartment building was lose, patient approached the dog and the dog bit her in the right hand. Patient states this happened 5 days ago, now her hand is throbbing. Patient states that they called animal control. Seems that they were able to find the check grader. Patient states that she was informed that the dog is not immunized at all. Patient denies any fever chills Earlier today, patient went to urgent Care, she was given a Tdap booster. They do not have rabies shots therefore they sent the patient to the emergency room. Related Data Home Medications ?Medication ?Instructions ?Recorded ?Confirmed montelukast 10 mg tablet 10 mg PO BEDTIME 02/13/20 02/20/24 (Singulair) alcohol swabs (Alcohol Prep Pads) pad topical BID 12/05/20 02/20/24 insulin lispro 200 unit/mL (3 mL) unit subcut 12/05/20 02/20/24 subcutaneous pen (Humalog KwikPen U-200 Insulin) paroxetine HCl 40 mg tablet 40 mg PO BEDTIME 12/05/20 02/20/24 pen needle, diabetic 32 gauge x #50 ea 12/05/20 02/20/24 5/32 (Pentips Pen Needle) nortriptyline 10 mg capsule 10 mg PO BEDTIME 05/21/21 02/20/24 insulin glargine 100 unit/mL (3 28 unit subcut DAILY 05/26/21 02/20/24 mL) subcutaneous pen (Lantus Solostar U-100 Insulin) multivitamin (One Daily 1 tab PO QAM 05/26/21 02/20/24 Multivitamin tablet) buspirone 15 mg tablet 15 mg PO BID 04/21/22 02/20/24 gabapentin 600 mg tablet 300 mg PO TID 04/21/22 02/20/24 haloperidol 1 mg tablet 1 mg PO BEDTIME 04/21/22 02/20/24 lidocaine 5 % topical patch 1 patch topical DAILY 04/21/22 02/20/24 metoprolol succinate 25 mg 25 mg PO DAILY 04/21/22 02/20/24 tablet,extended release 24 hr oxcarbazepine 300 mg tablet 450 mg PO BID 04/21/22 02/20/24 sertraline 100 mg tablet 100 mg PO DAILY 04/21/22 02/20/24 clonidine HCl 0.1 mg tablet 0.1 mg PO BEDTIME 07/08/22 02/20/24 dulaglutide 1.5 mg/0.5 mL 3 mg subcut QWEEK 07/08/22 02/20/24 subcutaneous pen injector (Trulicity) aspirin 81 mg chewable tablet 1 tab PO QPM 01/05/23 02/20/24 atorvastatin 80 mg tablet 80 mg PO QPM 01/05/23 02/20/24 metformin 500 mg tablet,extended 500 mg PO QPM 01/05/23 02/20/24 release 24 hr Previous Rx's ?Medication ?Instructions ?Recorded polyethylene glycol 3350 17 17 g PO DAILY #510 grams 05/05/22 gram/dose oral powder (Miralax) cetirizine 10 mg tablet (Zyrtec) 10 mg PO DAILY PRN allergy 06/16/22 symptoms 14 days #14 tabs linaclotide 290 mcg capsule 290 mcg PO QAM #30 caps 11/23/22 (Linzess) albuterol sulfate 90 mcg/actuation 2 puff PO Q4-6H PRN for dyspnea #1 11/26/22 aerosol inhaler (ProAir HFA) ea esomeprazole magnesium 40 mg 40 mg PO BID 90 days #180 caps 01/19/23 capsule,delayed release (Nexium) ondansetron 4 mg disintegrating 4 mg PO DAILY PRN nausea and 01/19/23 tablet vomiting #20 tabs sucralfate 1 gram tablet 1 g PO BEDTIME #90 tabs 02/02/23 albuterol sulfate 2.5 mg/3 mL 2.5 mg (3 mL) inhalation Q4-6H PRN 03/22/23 (0.083 %) solution for nebulization shortness of breath or wheezing 30 days #180 mL pyridoxine (vitamin B6) 100 mg 100 mg PO DAILY 90 days #90 tabs 11/30/23 tablet ipratropium 20 mcg-albuterol 100 1 puff PO Q6H #4 grams 01/25/24 mcg/actuation mist for inhalation (Combivent Respimat) fluticasone propionate 115 2 puff inhalation Q12H ASTHMA/COPD 02/17/24 mcg-salmeterol 21 mcg/actuation 30 days #12 grams HFA inhaler (Advair HFA) doxycycline hyclate 100 mg tablet 100 mg PO BID #10 tabs 03/30/24 ibuprofen 600 mg tablet 600 mg PO Q6H PRN fever or pain 03/30/24 #30 tabs metronidazole 500 mg tablet 500 mg PO BID #10 tabs 03/30/24 Allergies Allergy/AdvReac Type Severity Reaction Status Date / Time penicillin G [Penicillin G] Allergy Mild SWELLING Verified 03/30/24 13:15 barium sulfate Allergy Unknown HIVES Verified 03/30/24 13:15 [ORAL CONTRAST] cephalexin Allergy Unknown Unknown Verified 03/30/24 13:15 Review of Systems Review of Systems: Constitutional : No Weight loss, No Fever, No Chills, No Night Sweats, No Fatigue, No Malaise ENT/Mouth : No Hearing loss, No Ear Pain, No Nasal Congestion, No Sinus Pain, No Hoarseness, No sore throat, No Rhinorrhea, No Swallowing Difficulty Eyes: No Eye Pain, No Swelling, No Redness, No Foreign Body, No Discharge, No Vision Changes Cardiovascular : No Chest Pain, No SOB, No Dyspnea on Exertion, No Orthopnea, No Edema, No Palpitations Respiratory : No Cough, No Sputum, No Wheezing, No Smoke Exposure, No Dyspnea Gastrointestinal : No Nausea, No Vomiting, No Diarrhea, No Constipation, No abdominal Pain, No Hematochezia, No Melena Genitourinary : no irregular bleeding, No Dysuria, No Urinary Frequency, No Hematuria, No Urinary Incontinence, No Urgency, No Flank Pain, No Urinary Flow Changes, No Hesitancy Musculoskeletal : No joint pain, No Myalgias, No Joint Swelling Skin : Puncture wound/right hand dog bite Neuro : No Weakness, No Numbness, No Paresthesias, No Loss of Consciousness, No Dizziness, No Headache Psych : No Anxiety/Panic, No Depression, No SI/HI/AH/VH, No Social Issues, Heme/Lymph: No Bruising, No Bleeding,No Lymphadenopathy Endocrine : No Polyuria, No Polydipsia, No Temperature Intolerance PMFSH Past Medical History Medical History Exposure to rabies Lymphoma Restrictive lung disease secondary to obesity COPD (chronic obstructive pulmonary disease) Nocturnal hypoxemia DRE (obstructive sleep apnea) Cough Nicotine dependence, cigarettes, uncomplicated Allergic rhinitis Morbid obesity Hyperlipidemia GERD (gastroesophageal reflux disease) Tubular adenoma Chronic idiopathic constipation IBS (irritable bowel syndrome) Back pain Depression Surgical History History of total right knee replacement (TKR) History of appendectomy (~1978) History of (~1986) History of hysterectomy (~1995) History of lithotripsy (~2018) History of carpal tunnel surgery of right wrist (~2020) History of colonoscopy History of esophagogastroduodenoscopy (EGD) Family History Family History Mother Diabetes Heart muscle disorder caused by another medical condition Father Diabetes Epilepsy Sister No problems noted. Sister No problems noted. Sister No problems noted. Sister No problems noted. Sister No problems noted. Brother No problems noted. Brother No problems noted. Brother No problems noted. Brother No problems noted. Brother No problems noted. Brother No problems noted. Daughter No problems noted. Daughter No problems noted. Son No problems noted. Son No problems noted. Son No problems noted. Social History Social History Are you a primary complex care nurse practitioner to a significant other at home: No Do you presently have visiting nurse or other home services: No Alcohol intake: current Alcohol intake frequency: holidays/special occasions only Patient Tobacco Use Status: Current everyday Tobacco user Cigarettes Per Day: 10 Years Smoked: (onset 13yo, x 42yrs, max 2ppd, now 1/2ppd - 30PYH) Substance Use Type: Opiates Advance Directives: No Advance Directives Information Provided: Yes Do you have a plan to hurt others: No Plan Current occupation: rt handed Physical Exam Vital Signs: Vital Signs: Last Vital Signs Temp 98 F 03/30/24 13:13 Pulse 87 03/30/24 18:00 Resp 18 03/30/24 18:00 BP 158/74 H 03/30/24 18:00 Pulse Ox 98 03/30/24 13:13 O2 Del Method Room Air 03/30/24 13:13 BMI result Body Mass Index 41.1 Const: Other: Appearance: Alert. Oriented X3. No acute distress. Eyes: Pupils equal, round and reactive to light. ENT: Pharynx normal. Neck: Normal inspection. Neck supple. No lymph nodes noted. No crepitus CVS: Normal heart rate and rhythm. Pulses normal. Normal S1 and S2 Respiratory: No respiratory distress. Breath sounds normal. No Wheezing. No rales Abdomen: Soft and nontender. No rigidity. No distention. Skin: Skin warm and dry. Normal skin color. Normal skin turgor. Extremities: No lower extremity edema. No Lacerations. No Rash, no swollen, patient able to flex and extend all fingers, oppose the thumb. Pain to palpation over the distal end of the thumb where there is a small puncture wound. Does not seem infected at this time. Neuro: Oriented X 3. No motor deficit. No sensory deficit. Moving all extremities. No slurred speech. CN 2 through 12 grossly intact Psych: calm, cooperative, normal affect Course Course Course Narrative: This is a rapid medical exam performed by Ignacia Lorenzo PA-C. The patient is a 58-year-old female who presents after a dog bite that occurred 5 days ago. Patient states she was bitten by her neighbor's friend's dog on her right hand. She states she sustained puncture wounds to digits 1 3 and 4. On exam, I can not appreciate the wounds on digits 4 and 3, I see a sealed over puncture wound on the pad of her thumb. There was no overlying erythema over the hand, no purulent drainage. The patient was seen at [facility], she received her tetanus vaccine. The patient is stable and can return to the waiting room pending her full medical assessment. Medical Decision Making Medical Decision Making MDM Narrative: I discussed the physical exam with the patient, tenosynovitis is not suspected, at this time, patient does not seem to have cellulitis of the hand either. Patient prophylactically being treated with antibiotics. Patient allergic to penicillin reporting anaphylaxis. Patient was given metronidazole and doxycycline p.o. Patient received the Tdap booster at urgent Care they Given that we do not have any significant information about the dog + patient was informed that the dog is not immunized, we will go ahead and immunized the patient for rabies. Patient has been informed that she will receive a series of shots over the next couple of weeks. Patient agrees with plan. Our unit nurse has been informed Discharge Plan Discharge Clinical Impression: Dog bite Patient Disposition: Home, Self-Care Instructions: Animal Bite (ED), Rabies (ED) Additional Instructions: Please follow-up with your primary care physician tomorrow. If you have any worsening or new symptoms, please return to the emergency room or call 911 Prescriptions: New doxycycline hyclate 100 mg tablet 100 mg PO BID Qty: 10 0RF metronidazole 500 mg tablet 500 mg PO BID Qty: 10 0RF Rx Instructions: Do not take alcohol during the course of antibiotics ibuprofen 600 mg tablet 600 mg PO Q6H PRN (Reason: fever or pain) Qty: 30 0RF No Action albuterol sulfate [ProAir HFA] 90 mcg/actuation HFA aerosol inhaler 2 puff PO Q4-6H PRN (Reason: for dyspnea) Qty: 1 1RF albuterol sulfate 2.5 mg /3 mL (0.083 %) solution for nebulization 2.5 mg inhalation Q4-6H PRN (Reason: shortness of breath or wheezing) 30 Days Qty: 180 3RF pyridoxine (vitamin B6) 100 mg tablet 100 mg PO DAILY 90 Days Qty: 90 3RF Combivent Respimat 20-100 mcg/actuation mist 1 puff PO Q6H Qty: 4 3RF Advair HFA 115-21 mcg/actuation HFA aerosol inhaler 2 puff inhalation Q12H 30 Days Qty: 12 5RF Rx Instructions: administer with spacer montelukast [Singulair] 10 mg tablet 10 mg PO BEDTIME gabapentin 600 mg tablet 300 mg PO TID metoprolol succinate 25 mg tablet extended release 24 hr 25 mg PO DAILY Humalog KwikPen Insulin 200 unit/mL (3 mL) insulin pen subcut (DME) pen needle, diabetic [Pentips Pen Needle] 32 gauge x 5/32 needle See Rx Instructions .ROUTE DAILY Qty: 50 Rx Instructions: As directed paroxetine HCl 40 mg tablet 40 mg PO BEDTIME alcohol swabs [Alcohol Prep Pads] Pads, Medicated topical BID multivitamin [One Daily Multivitamin] Tablet 1 tab PO QAM Lantus Solostar U-100 Insulin 100 unit/mL (3 mL) insulin pen 28 unit subcut DAILY haloperidol 1 mg tablet 1 mg PO BEDTIME lidocaine 5 % adhesive patch,medicated 1 patch topical DAILY Rx Instructions: leave on most painful area for up to 12 hrs oxcarbazepine 300 mg tablet 450 mg PO BID sertraline 100 mg tablet 100 mg PO DAILY buspirone 15 mg tablet 15 mg PO BID polyethylene glycol 3350 [Miralax] 17 gram/dose powder 17 g PO DAILY Qty: 510 2RF nortriptyline 10 mg capsule 10 mg PO BEDTIME Linzess 290 mcg capsule 290 mcg PO QAM Qty: 30 4RF sucralfate 1 gram tablet 1 g PO BEDTIME Qty: 90 2RF cetirizine [Zyrtec] 10 mg tablet 10 mg PO DAILY PRN (Reason: allergy symptoms) 14 Days Qty: 14 2RF clonidine HCl 0.1 mg tablet 0.1 mg PO BEDTIME Trulicity 1.5 mg/0.5 mL pen injector 3 mg subcut QWEEK metformin 500 mg tablet extended release 24 hr 500 mg PO QPM aspirin 81 mg tablet,chewable 1 tab PO QPM atorvastatin 80 mg tablet 80 mg PO QPM esomeprazole magnesium [Nexium] 40 mg capsule,delayed release(DR/EC) 40 mg PO BID 90 Days Qty: 180 3RF ondansetron 4 mg tablet,disintegrating 4 mg PO DAILY PRN (Reason: nausea and vomiting) Qty: 20 0RF Print Language: Moldovan
--- OUTSIDE RECORDS SUMMARY | 2024-03-30 17:33 | XMS_ITS | Encounter Summary ---
Author Organization [facility] Address [address] [place] [address] Care Team Providers Care Investigator Utility Bill Complaints Name Role Phone Name, Kiel BAILEY Primary Care Provider Unavailabl e Name, Kiel BAILEY Primary Care Provider Unavailabl e Philly Vela DO Primary Care Pro vider Unavailable Name, Kiel BAILEY Primary Care Provider Unavailabl e Encounter Details Date Type Department Care Team Description 03/02/2012 Hospital Medical Records [address] [place] [address] Kaylynn Mahmood MD Social History Tobacco Use Types Packs/Day Years Used Date Smoking Tobacco: Some Days Cigarettes 0.5 15 Last attempted to quit: 08/22/2014 Smokeless Tobacco: Never Comments:approx 7 daily Alcohol Use Standard Drinks/Week Comments No 0 (1 standard drink = 0.6 oz pur e alcohol) Sex Assigned at Date Recorded Not on file documented as of this encounter Plan of Treatment Not on file documented as of this encounter Visit Diagnoses Not on filedocumented in this encounter Care Teams Investigator Utility Bill Complaints Relationship Specialty Start Date End Date Kiel Shaffer MD PCP - General 05/26/09 04/27/15 Kiel Shaffer MD PCP - General Internal Medicine 04/28/15 05/05/15 Philly Vela DO PCP - General Internal Medicine 05/06/15 08/27/15 Kiel Shaffer MD PCP - General Internal Medicine 08/28/15 documented as of this encounter
--- OUTSIDE RECORDS SUMMARY | 2024-03-30 17:33 | XMS_ITS | Encounter Summary ---
Author Organization [facility] Address [address] [place] [address] Care Team Providers Care Slitter Operator Name Role Phone Name, Kiel BAILEY Primary Care Provider Unavailabl e Name, Kiel BAILEY Primary Care Provider Unavailabl e Philly Vela DO Primary Care Pro vider Unavailable Name, Kiel BAILEY Primary Care Provider Unavailabl e Encounter Details Date Type Department Care Team Description 11/25/2011 Release of Information Medical Records [address] [place] [id number] Abstract, Provider Social History Tobacco Use Types Packs/Day Years Used Date Smoking Tobacco: Every Day Cigarettes 0.3 15 Smokeless Tobacco: Never Comments:resumed smoking.6 c ig a day Alcohol Use Standard Drinks/Week Comments No 0 (1 standard drink = 0.6 oz pur e alcohol) Sex Assigned at Date Recorded Not on file documented as of this encounter Plan of Treatment Not on file documented as of this encounter Visit Diagnoses Not on filedocumented in this encounter Care Teams Slitter Operator Relationship Specialty Start Date End Date Kiel Shaffer MD PCP - General 05/26/09 04/27/15 Kiel Shaffer MD PCP - General Internal Medicine 04/28/15 05/05/15 Philly Vela DO PCP - General Internal Medicine 05/06/15 08/27/15 Kiel Shaffer MD PCP - General Internal Medicine 08/28/15 documented as of this encounter
--- OUTSIDE RECORDS SUMMARY | 2024-03-30 17:33 | XMS_ITS | Encounter Summary ---
Author Organization [facility] Address [address] [place] [address] Care Team Providers Care Clamp Truck Driver Name Role Phone Name, Kiel BAILEY Primary Care Provider [phone] Encounter Details Date Type Department Care Team Description 09/10/2022 Social Work [facility] Oncology Services [address] [place] [address] Adina Archer, [facility] [place] Social History Tobacco Use Types Packs/Day Years Used Date Smoking Tobacco: Every Day Cigarettes 0.3 Smokeless Tobacco: Never Alcohol Use Standard Drinks/Week Comments No 0 (1 standard drink = 0.6 oz pur e alcohol) Sex and Gender Information Value Date Recorded Sex Assigned at Not on file Gender Identity Not on file Sexual Orientation Not on file Job Start Date Occupation Industry Not on file Not on file Not on file documented as of this encounter Plan of Treatment Not on file documented as of this encounter Visit Diagnoses Not on filedocumented in this encounter Care Teams Clamp Truck Driver Relationship Specialty Start Date End Date Name, MD Kiel [address] [place] [address] [address] [place] [address] PCP - General Internal Medicine 04/17/18 documented as of this encounter
--- OUTSIDE RECORDS SUMMARY | 2024-03-30 17:33 | XMS_ITS | Encounter Summary ---
Author Organization [employer] Address [address] [facility] 7t [place] [address] Care Team Providers Care Fraternity House Cook Name Role Phone Name, Kiel BAILEY Primary Care Provider [phone] Katlyn Rodriguez PharmD Unavailable [phone] Reason for Visit * Reason Comments Med Refill Encounter Details Date Type Department Care Team ([facility] st Contact Info) Description 09/07/2023 Refill [facility] PEDS [address] [place], [place] [phone] Name, MD Kiel [address] [place] [address] Type 2 diabetes mellitus with other specified complication (CMS/HCC) Social History Tobacco Use Types Packs/Day Years Used Date Smoking Tobacco: Every Day Cigarettes Passive Smoke Exposure: Past Smokeless Tobacco: Never Alcohol Use Standard Drinks/Week Comments Yes 2 (1 standard drink = 0.6 oz pur e alcohol) Events/ Holidays Depression Answer Date Recorded Patient Health Questionnaire-9 Score 4 09/02/2023 Patient Health Questionnaire-9 Score 4 09/02/2023 Last PHQ-9: Questionnaire Data Not on file 0 09/02/2023 Housing Stability Answer Date Recorded What is your housing situation today? I have shirin renetta 09/02/[address] you li ve. Do you have problems with any of the following? None of the above 09/02/2023 Food Insecurity Answer Date Recorded Within the past 12 months, y ou worried that your food would run out before you got money to buy more: Never True 09/02/2023 Within the past 12 months,th e food you bought just didn't last and you didn't have enough money to get more: Never True 01/2024 Transportation Answer Date Recorded In the past 12 months, has l ack of transportation kept you from medical appts, meetings, work or from getting things needed for daily living? No 09/02/2023 Utilities Answer Date Recorded In the past 12 months, has t he electric, gas, oil or water company threatened to shut off services in your home? No 09/02/2023 Depression Answer Date Recorded Patient Health Questionnaire-2 Score 0 09/02/2023 Comments Unknown Sex and Gender Information Value Date Recorded Sex Assigned at Female 12/21/2021 10:14 AM EDT Legal Sex Female 10:14 AM EDT Gender Identity Female 12/21/2021 10:14 AM EDT Sexual Orientation Straight 12/21/2021 10 :14 AM EDT documented as of this encounter Plan of Treatment Upcoming Encounters Date Type Department Care Team (Late st Contact Info) Description 05/07/2024 10:30 AM EDT Medication Management [facility]IC[facility] [address] [place] [address] Puia, Katlyn, PharmD [address] [place] [address] documented as of this encounter Goals Goal Patient Goal Type Associated Problems Recent Progress Patient-Stated? Author Record your blood pressure once per day Blood Pressure No Puia, Katlyn, PharmD Blood Pressure < 140/90 Blood Pressure 113/64(2024 10:47 AM EST) No Puia, Katlyn, PharmD Hemoglobin A1c < 7 Result Component 7.5( 10:50 AM EST) No Puia, Katlyn, PharmD Record your blood sugar as directed Result Component No Puia, Katlyn, PharmD documented as of this encounter Visit Diagnoses Diagnosis Type 2 diabetes mellitus with other specified complication (CMS/HCC) documented in this encounter Additional Health Concerns Assessment Noted Time PHQ-9 Depression Total Score: 4 09/02/19 24 10:30 AM EDT documented as of this encounter Care Teams Fraternity House Cook Relationship Specialty Start Date End Date Name, MD Kiel [address] [place] [address] PCP - General Family Medicine 07/15/15 Katlyn Rodriguez, AngieD [address] [place] [address] Pharmacist Internal Medicine 10/08/22 Marta Ovalle Chemical WorkerDesk Pen Set Assembler 05/25/23 documented as of this encounter
--- OUTSIDE RECORDS SUMMARY | 2024-03-30 17:33 | XMS_ITS | Encounter Summary ---
Author Organization [employer] Address [address] [facility] 7t [place] [address] Care Team Providers Care Engineering Lab Technician Name Role Phone Name, Kiel BAILEY Primary Care Provider [phone] Katlyn Rodriguez PharmD Unavailable [phone] Encounter Details Date Type Department Care Team ([facility] Contact Info) Description 03/12/2022 Orders Only [facility] PEDS [address] [place], [place] [phone] Millie Sawant LPN Social History Tobacco Use Types Packs/Day Years Used Date Smoking Tobacco: Every Day Cigarettes Smokeless Tobacco: Never Alcohol Use Standard Drinks/Week Comments Yes 2 (1 standard drink = 0.6 oz pur e alcohol) Events/ Holidays Comments Unknown Sex and Gender Information Value Date Recorded Sex Assigned at Female 12/21/2021 10:14 AM EDT Legal Sex Female 10:14 AM EDT Gender Identity Female 12/21/2021 10:14 AM EDT Sexual Orientation Straight 12/21/2021 10 :14 AM EDT COVID-19 Exposure Response Date Recorded In the last 10 days, have yo u been in contact with someone who was confirmed or suspected to have Coronavirus/COVID-19? No / Unsure 03/04/2022 3:15 PM EST documented as of this encounter Plan of Treatment Upcoming Encounters Date Type Department Care Team ([facility] Contact Info) Description 05/07/2024 10:30 AM EDT Medication Management [facility] [address] [place], [place] [phone] Katlyn Rodriguez, PharmD [address] [place], [place] [phone] documented as of this encounter Visit Diagnoses Not on filedocumented in this encounter Care Teams Engineering Lab Technician Relationship Specialty Start Date End Date Name, MD Kiel [address] [place], [place] [phone] PCP - General Family Medicine 07/15/15 Katlyn Rodriguez PharmD [address] [place] [address] Pharmacist Internal Medicine 10/08/22 Marta Ovalle Immunology TeacherScientific Linguist 05/25/23 documented as of this encounter
--- OUTSIDE RECORDS SUMMARY | 2024-03-30 17:33 | XMS_ITS | Encounter Summary ---
Author Organization [employer] Address [address] [facility] 7[address] [place] [address] Care Team Providers Care Welder Assembler Name Role Phone Name, Kiel BAILEY Primary Care Provider [phone] Katlyn Rodriguez PharmD Unavailable [phone] Reason for Visit * Reason Comments Med Refill Encounter Details Date Type Department Care Team ([facility] st Contact Info) Description 04/15/2023 Refill [facility] MEDICINE [address] [place] [address] Yaneth Restrepo FNP [address] [place] [address] Diabetes mellitus type 2 in obese (CMS/HCC) Social History Tobacco Use Types Packs/Day Years Used Date Smoking Tobacco: Every Day Cigarettes Passive Smoke Exposure: Past Smokeless Tobacco: Never Alcohol Use Standard Drinks/Week Comments Yes 2 (1 standard drink = 0.6 oz pur e alcohol) Events/ Holidays Depression Answer Date Recorded Patient Health Questionnaire-9 Score 7 07/14/2022 Housing Stability Answer Date Recorded What is your housing situation today? I have shirin jackson 12/06/[address] you li ve. Do you have problems with any of the following? None of the above 12/06/2022 Food Insecurity Answer Date Recorded Within the past 12 months, y ou worried that your food would run out before you got money to buy more: Never True 12/06/2022 Within the past 12 months,th e food you bought just didn't last and you didn't have enough money to get more: Never True Transportation Answer Date Recorded In the past 12 months, has l ack of transportation kept you from medical appts, meetings, work or from getting things needed for daily living? No 12/06/2022 Utilities Answer Date Recorded In the past 12 months, has t he electric, gas, oil or water company threatened to shut off services in your home? No 12/06/2022 Depression Answer Date Recorded Patient Health Questionnaire-2 Score 2 07/14/2022 Comments Unknown Sex and Gender Information Value [...] Description 05/07/2024 10:30 AM EDT Medication Management [facility] [address] [place] [address] Puia, Katlyn, PharmD [address] [place] [address] documented as of this encounter Goals Goal [...] as of this encounter Visit Diagnoses Diagnosis Diabetes mellitus type 2 in obese Type II or unspecified type diabetes mellitus without mention of complication, not stated as uncontrolled documented in this encounter Additional Health Concerns Assessment Noted Time PHQ-9 Depression Total Score: 7 07/15/19 23 2:39 PM EDT documented as of this encounter Care Teams Welder Assembler Relationship Specialty Start Date End Date Name, MD Kiel [address] [place] [address] PCP - General Family Medicine 07/15/15 Katlyn Rodriguez, PharmD [address] [place] [address] Pharmacist Internal Medicine 10/08/22 Marta Ovalle Health And Wellness CoachEnergy And Sustainability Manager 05/25/23 documented as of this encounter
--- OUTSIDE RECORDS SUMMARY | 2024-03-30 17:33 | XMS_ITS | Encounter Summary ---
Author Organization [employer] Address [address] [facility] 7[address] [place] [address] Care Team Providers Care Airplane Electrical Repairer Name Role Phone Name, Kiel BAILEY Primary Care Provider [phone] Katlyn Rodriguez PharmD Unavailable [phone] Reason for Visit * Reason Comments Med Refill Encounter Details Date Type Department Care Team ([facility] st Contact Info) Description 06/27/2023 Refill [facility] MEDICINE [address] [place] [address] Katlyn Rodriguez, PharmD [address] [place] [address] Tobacco use disorder Social History Tobacco Use Types Packs/Day Years [...] Description 05/07/2024 10:30 AM EDT Medication Management [facility] MED[facility]INE [address] [place] [address] Puia, Katlyn, PharmD [address] [place], [place] [phone] documented as of this encounter Goals Goal [...] as of this encounter Visit Diagnoses Diagnosis Tobacco use disorder documented in this encounter Additional Health Concerns Assessment Noted Time PHQ-9 Depression Total Score: 7 07/15/19 23 2:39 PM EDT documented as of this encounter Care Teams Airplane Electrical Repairer Relationship Specialty Start Date End Date Name, MD Kiel [address] [place] [address] PCP - General Family Medicine 07/15/15 Puia, Katlyn, PharmD [address] [place] [address] Pharmacist Internal Medicine 10/08/22 Marta Ovalle Advice Line RnGluer And Wedger 05/25/23 documented as of this encounter
--- OUTSIDE RECORDS SUMMARY | 2024-03-30 17:33 | XMS_ITS | Encounter Summary ---
[facility] Organization [facility] Address [address] [place] [address] Care Team Providers Care Inspector Penetrant Name Role Phone Name, Kiel BAILEY Primary Care Provider Unavailabl e Name, Kiel BAILEY Primary Care Provider Unavailabl e Philly Vela DO Primary Care Pro vider Unavailable Name, Kiel BAILEY Primary Care Provider Unavailabl e Encounter Details Date Type Department Care Team Description 03/16/2012 Release of Information Medical Records [address] [place] [id number] Abstract, Provider Social History Tobacco Use Types [...] on filedocumented in this encounter Care Teams Inspector Penetrant Relationship Specialty Start Date End Date Kiel Shaffer MD PCP - General 05/26/09 04/27/15 Kiel Shaffer MD PCP - General Internal Medicine 04/28/15 05/05/15 Philly Vela DO PCP - General Internal Medicine 05/06/15 08/27/15 Kiel Shaffer MD PCP - General Internal Medicine 08/28/15 documented as of this encounter
--- OUTSIDE RECORDS SUMMARY | 2024-03-30 17:33 | XMS_ITS | Encounter Summary ---
Author Organization [employer] Address [address] [facility] 7t [place] [address] Care Team Providers Care Manager Financial Services Name Role Phone Name, Kiel BAILEY Primary Care Provider [phone] Katlyn Rodriguez PharmD Unavailable [phone] Reason for Visit * Reason Onset Date Comments Medication Question 05/16/2023 Encounter Details Date Type Department Care Team ([facility] Contact Info) Description 05/16/2023 Telephone [facility] MEDICINE [address] [place], [place] [phone] Name, MD Kiel [address] [place] [address] Medication Question Social History Tobacco Use Types Packs/Day Years [...] housing situation today? I have shirin jackson 09/02/[address] you li [...] Recorded Patient Health Questionnaire-2 Score 0 09/02/2023 Internet Access Answer Date Recorded Internet Access Q1 Yes 10/24/2023 Internet Access Q2 Not on file 10/24/2023 Comments Unknown Sex and Gender Information Value Date Recorded Sex Assigned at Female 12/21/2021 10:14 AM EDT Legal Sex Female 10:14 AM EDT Gender Identity Female 12/21/2021 10:14 AM EDT Sexual Orientation Straight 12/21/2021 10 :14 AM EDT documented as of this encounter Miscellaneous Notes * Telephone Encounter - Regi Ji RN - 05/16/2023 1:48 PM EDT T/C to pt. Through [email or web address] id - [id number] for below message for medication request, No answer. Mail box is full , not able to LVM. * Telephone Encounter - Kiel Shaffer MD - 05/16/2023 12:50 PM EDT Can you call her and see what is the problem. She does not need antibiotic prior to dental procedure unless she is having a dental infection right now * Telephone Encounter - Kayla Burnett - 05/16/2023 9:24 AM EDT Tc from pt requesting RX for antibiotics, states they will be having a dental procedure and was advised to contact PCP for prescription. No other details provided. Please contact at at [phone] documented in this encounter Plan of Treatment Upcoming Encounters Date Type Department Care Team (Late st Contact Info) Description 05/07/2024 10:30 AM EDT Medication Management [facility] MEDICINE [address] [place] [address] PuiaPremasa, PharmD [address] [place] [address] documented as of this encounter Goals Goal [...] filedocumented in this encounter Additional Health Concerns Assessment Noted Time PHQ-9 Depression Total Score: 7 07/15/19 23 2:39 PM EDT documented as of this encounter Care Teams Manager Financial Services Relationship Specialty Start Date End Date Name, MD Kiel [address] [place] [address] PCP - General Family Medicine 07/15/15 Puia, Katlyn, PharmD [address] [place] [address] Pharmacist Internal Medicine 10/08/22 Marta Ovalle Manager Distribution CenterSettlement Worker 05/25/23 documented as of this encounter
--- OUTSIDE RECORDS SUMMARY | 2024-03-30 17:33 | XMS_ITS | Encounter Summary ---
Author Organization [employer] Address [address] [facility] 7t [place] [address] Care Team Providers Care Glass Enamel Mixer Name Role Phone Name, Kiel BAILEY Primary Care Provider [phone] Katlyn Rodriguez PharmD Unavailable [phone] Reason for Visit * Reason Onset Date Comments Medication Problem 08/30/2023 Encounter Details Date Type Department Care Team ([facility] Contact Info) Description 08/30/2023 Telephone [facility] MEDICINE [address] [place], [place] [phone] Name, MD Kiel [address] [place] [address] Medication Problem Social History Tobacco Use Types Packs/Day Years [...] is your housing situation today? I have shirinquita jackson 09/02/[address] you [...] encounter Miscellaneous Notes * Telephone Encounter - Siena Bae - 08/30/2023 8:03 AM EDT Tc from pt calling to inform missed her glucose sensor while walking. documented in this encounter Plan of Treatment Upcoming Encounters Date Type Department Care Team (Late st Contact Info) Description 05/07/2024 10:30 AM EDT Medication Management [facility] MEDICINE [address] [place] [address] Puia, Katlyn, PharmD [address] [place] [address] documented as of this encounter Goals Goal [...] documented as of this encounter Care Teams Glass Enamel Mixer Relationship Specialty Start Date End Date Name, MD Kiel [address] [place] [address] PCP - General Family Medicine 07/15/15 Katlyn Rodriguez PharmD [address] [place] [address] Pharmacist Internal Medicine 10/08/22 Marta Ovalle Manager MilitaryStem Lead Former 05/25/23 documented as of this encounter
--- OUTSIDE RECORDS SUMMARY | 2024-03-30 17:33 | XMS_ITS | Encounter Summary ---
Author Organization [employer] Address [address] [place] [address] Care Team Providers Care Technology And Engineering Teacher Name Role Phone Name, Kiel BAILEY Primary Care Provider [phone] Katlyn Rodriguez PharmD Unavailable [phone] Reason for Visit * Reason Onset Date Comments Reschedule 08/01/2023 Encounter Details Date Type Department Care Team ([facility] st Contact Info) Description 08/01/2023 Telephone [facility] [address] [place] [address] Name, MD Kiel [address] [place] [address] Reschedule Social History Tobacco Use Types Packs/Day Years [...] encounter Miscellaneous Notes * Telephone Encounter - Chitra Lancaster RN - 08/01/2023 9:55 AM EDT Triage call with Diana Routeman ID [id number] . Pt reports Covid + test this morning. Pt symptoms are diarrhea, vomiting, nasal congestion, cough, headache, chills. Pt is advised if fever of 103 or higher, difficulty breathing with chest pain/pressure seek ED evaluation. Pt denies these symptoms. Pt is given home care advice. Increase liquids 6-8 glasses daily, warm decaf tea, juice, water. Pt can use 2 tsp honey for cough or OTC cough suppressant medication. Tylenol/motrin for headaches and discomfort. Humidifier at bedside, steamy shower for coughing spells. Pt is given tele visit with GERARDO Cardenas 1130am today. Pt agrees with disposition and home care advised. Insurance is verified as activ e prior to booking. Protocol Used: COVID-19 - Diagnosed or Suspected (Adult) Protocol-Based Disposition: Home Care Positive Triage Question: * COVID-19 diagnosed by positive lab test (e.g., PCR, rapid self-test kit) and mild symptoms (e.g.,cough, fever, others) and no complications or SOB * All higher-acuity triage questions were negative Care Advice Discussed: * Reassurance and Education - Positive COVID-19 Lab Test and Mild Symptoms * General Care Advice for COVID-19 Symptoms * Cough Medicines * Humidifier * Coughing Spells * Pain and Fever Medicines * Mild Stomach and Intestinal Symptoms During COVID-19 Illness * Reasons To Call Back - Fever over 103 F (39.4 C) - Fever lasts over 3 days - Fever returns after being gone for 24 hours - Chest pain or difficulty breathing occurs - You become worse * COVID-19 - How to Protect Your Family and Yourself From Getting Sick * COVID-19 - How to Protect Others - When You Are Sick With COVID-19 * Telephone Encounter - Opal Steiner RN - 08/01/2023 9:04 AM EDT Patient cancelled todays POST ANESTHESIA NURSE RV appt today. Pt's POST ANESTHESIA NURSE appt has been rescheduled for chronic pain group 08/30/23 @ 11am. Return TC to patient. Patient stating she's not feeling well. C/O vomiting, headache, feeling hot/cold. Stated she just did a home test for COVID and it was positive. Pt would like to speak with triage nurse about possible tele appt to be seen. Will forward message to triage. * Telephone Encounter - Siena Bae - 08/01/2023 9:00 AM EDT Tc from pt requesting r/s POST ANESTHESIA NURSE appt, stated is sick and suspect is COVID documented in this encounter Plan of Treatment Upcoming Encounters Date Type Department Care Team (Late st Contact Info) Description 05/07/2024 10:30 AM EDT Medication Management [facility] [address] [place] [address] Puia, Katlyn, PharmD [address] [place] [address] documented as of this encounter Goals Goal Patient Goal Type Associated Problems Recent Progress Patient-Stated? Author Record your blood pressure once per day Blood Pressure No Puia, Katlyn, PharmD Blood Pressure < 140/90 Blood Pressure 113/64(2024 10:47 AM EST) No Puia, Katlyn, PharmD Hemoglobin A1c < 7 Result Component 7.5( 5 10:50 AM EST) No Katlyn Rodriguez, PharmD Record your blood sugar as directed Result Component No Katlyn Rodriguez PharmD documented as of this encounter Visit Diagnoses Not on filedocumented in this encounter Additional Health Concerns Assessment Noted Time PHQ-9 Depression Total Score: 7 07/15/19 23 2:39 PM EDT documented as of this encounter Care Teams Technology And Engineering Teacher Relationship Specialty Start Date End Date Name, MD Kiel [address] [place] [address] PCP - General Family Medicine 07/15/15 Katlyn Rodriguez, AngieD [address] [place] [address] Pharmacist Internal Medicine 10/08/22 Marta Ovalle Marine TechnicianTreating Inspector 05/25/23 documented as of this encounter
--- OUTSIDE RECORDS SUMMARY | 2024-03-30 17:33 | XMS_ITS | Encounter Summary ---
Author Organization [facility] Address [address] [place] [address] Care Team Providers Care Ash Worker Name Role Phone Name, Kiel BAILEY Primary Care Provider Unavailabl e Name, Kiel BAILEY Primary Care Provider Unavailabl e Philly Vela DO Primary Care Pro vider Unavailable Name, Kiel BAILEY Primary Care Provider Unavailabl e Encounter Details Date Type Department Care Team Description 10/09/2009 Rate Supervisor Report Medical Records [address] [place] [address] Maricel Walls NP Social History Tobacco Use Types Packs/Day Years Used Date Smoking Tobacco: Every Day Cigarettes 0.5 15 Alcohol Use Standard Drinks/Week Comments No 0 (1 standard drink = 0.6 oz pur e alcohol) Sex Assigned at Date Recorded Not on file documented as of this encounter Plan of Treatment Not on file documented as of this encounter Visit Diagnoses Not on filedocumented in this encounter Care Teams Ash Worker Relationship Specialty Start Date End Date Kiel Shaffer MD PCP - General 05/26/09 04/27/15 Kiel Shaffer MD PCP - General Internal Medicine 04/28/15 05/05/15 Philly Vela DO PCP - General Internal Medicine 05/06/15 08/27/15 Kiel Shaffer MD PCP - General Internal Medicine 08/28/15 documented as of this encounter
--- OUTSIDE RECORDS SUMMARY | 2024-03-30 17:33 | XMS_ITS | Encounter Summary ---
Author Organization [facility] Address [address] [place] [address] Care Team Providers Care Head Of Sales Promotion Name Role Phone Name, Kiel BAILEY Primary Care Provider Unavailabl e Name, Kiel BAILEY Primary Care Provider Unavailabl e Philly Vela DO Primary Care Pro vider Unavailable Name, Kiel BAILEY Primary Care Provider Unavailabl e Encounter Details Date Type Department Care Team Description 04/05/2012 Biodiesel Technology Manager Report Medical Records [address] [place] [address] Susan Yee Social History Tobacco Use Types Packs/Day Years [...] on filedocumented in this encounter Care Teams Head Of Sales Promotion Relationship Specialty Start Date End Date Kiel Shaffer MD PCP - General 05/26/09 04/27/15 Kiel Shaffer MD PCP - General Internal Medicine 04/28/15 05/05/15 Philly Vela DO PCP - General Internal Medicine 05/06/15 08/27/15 Kiel Shaffer MD PCP - General Internal Medicine 08/28/15 documented as of this encounter
--- OUTSIDE RECORDS SUMMARY | 2024-03-30 17:34 | XMS_ITS | Clinical Summary ---
Author Organization [facility] Address [address] [place] [address] Care Team Providers Care Viscose Cellar Charge Hand Name Role Phone Name, Kiel BAILEY Primary Care Provider [phone] Allergies Active Allergy Reactions Criticality Noted Date Comments Penicillins 04/24/2018 Medications Medication Sig Dispensed Refills Start Date End Date Status topiramate (TOPAMAX) 50 MG tablet Take 1 tablet (50 mg total) by mouth 2 (two) times a day. [address] 0.5 mg under the tongue continuous prn. 0 Active albuterol (PROVENTIL HFA;VENTOLIN HFA) 108 (90 Base) MCG/ACT inhaler Inhale 1 puff into the lungs every 4 (four) hours as needed for wheezing. 0 Active empagliflozin (JARDIANCE) tablet 10 mg Take 1 tablet (10 mg total) by mouth daily. 0 Active rosuvastatin (CRESTOR) tablet 40 mg Take 1 tablet (40 mg total) by mouth daily. 0 Active metFORMIN (GLUCOPHAGE) tablet 500 mg Take 1 tablet (500 mg total) by mouth 2 (two) times a day with meals. 0 Active FLUoxetine (PROzac) 20 MG capsule Take 1 capsule (20 mg total) by mouth daily. 0 Active amitriptyline (ELAVIL) tablet 50 mg Take 1 tablet (50 mg total) by mouth every night at bedtime. 0 Active dilTIAZem (CARDIZEM CD) 120 MG 24 hr capsule Take 1 capsule (120 mg total) by mouth daily. 0 Active fluticasone (FLOVENT HFA) 110 MCG/ACT inhaler Inhale 1 puff into the lungs 2 (two) times a day. 0 Active raNITIdine (ZANTAC) 300 MG tablet Take 1 tablet (300 mg total) by mouth 2 (two) times a day. 0 Active insulin glargine (LANTUS) injection 100 units/mL Inject 50 Units under the skin every night at bedtime. 0 Active metoprolol tartrate (LOPRESSOR) 25 MG tablet Take 1 tablet (25 mg total) by mouth 2 (two) times a day. 0 Active sertraline (ZOLOFT) 100 MG tablet Take 2 tablets (200 mg total) by mouth daily. 0 Active insulin lispro (HumaLOG) injection 100 units/mL Inject 10 Units under the skin 3 (three) times a day with meals. 0 Active furosemide (LASIX) 20 MG tablet Take 1 tablet (20 mg total) by mouth 2 (two) times a day. 0 Active prazosin (MINIPRESS) 2 MG capsule Take 2 capsules (4 mg total) by mouth every night at bedtime. 0 Active Gabapentin Enacarbil ER 600 MG TBCR Take 1 tablet (600 mg total) by mouth 3 (three) times a day. 0 Active montelukast (SINGULAIR) 10 MG tablet Take 1 tablet (10 mg total) by mouth every night at bedtime. 0 Active aspirin EC 81 MG tablet Take 1 tablet (81 mg total) by mouth daily. 0 Active baclofen (LIORESAL) 10 MG tablet Take 1 tablet (10 mg total) by mouth 3 (three) times a day. 0 Active oxyCODONE HCl (ROXICODONE) 10 MG TABS Take 1 tablet (10 mg total) by mouth every 8 (eight) hours as needed. 30 tablet 0 07/31/2021 Active Multiple Vitamin (multivitamin) tablet TAKE 1 TABLET BY MOUTH EVERY MORNING 30 tablet 11 03/09/2022 Active dulaglutide (Trulicity) 0.75 MG/0.5ML subcutaneous pen-injector Inject under the skin. 0 Active Active Problems Problem Noted Date Diagnosed Date S/P TKR (total knee replacement), right 11/04/19 22 Left flank pain 10/21/2020 Cervical lymphadenopathy 08/28/2020 Neck pain 08/06/2020 Cellulitis of neck 08/06/2020 Throat pain 04/08/2020 Non-Hodgkin's lymphoma 12/04/2019 B-cell lymphoma 12/04/2019 Neck swelling 12/04/2019 COVID-19 virus infection 07/06/2019 Memory deficit 02/05/2019 Gait instability 02/05/2019 Other headache syndrome 02/05/2019 On home oxygen therapy 02/05/2019 Skin rash 11/06/2018 Other microscopic hematuria 11/06/2018 Intractable pain 08/07/2018 Anemia complicating neoplastic disease 9 Hypotension 05/26/2018 Anxiety 05/05/2018 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 04/18/2018 Essential hypertension 04/18/2018 Diabetes mellitus 04/18/2018 Simple chronic bronchitis 04/18/2018 Obstructive sleep apnea 04/18/2018 Chemotherapy-induced nausea 04/18/2018 Pancytopenia 04/18/2018 Acute cystitis without hematuria 04/18/2018 Cocaine abuse, episodic use 06/17/2010 Social History Tobacco Use Types Packs/Day Years [...] file Not on file Not on file Last Filed Vital Signs Vital Sign Reading Time Taken Comments Blood Pressure 106/63 11/24/2023 10:39 AM EDT Pulse 77 11/24/2023 10:39 AM EDT Temperature 36.3 ??C (97.3 ??F) 11/24/2023 1 0:39 AM EDT Respiratory Rate - - Oxygen Saturation 98% 11/24/2023 10: 39 AM EDT Inhaled Oxygen Concentration - - Weight 109.7 kg (241 lb 12.8 oz) 2023 10:39 AM EDT Height 157.5 cm (5' 2 ) 11/03/2021 9:20 AM EDT Body Mass Index 44.23 11/03/2021 9:20 AM EDT Plan of Treatment Health Maintenance Due Date Last Done Comments Hepatitis C Screening 1965 COVID-19 Vaccine (#1) 1970 Depression Screening 1977 BMI Counseling 08/22/1983 Preventative Health Evaluation 08/22/1983 Tobacco Cessation Counseling 08/22/1983 Cervical Cancer Screening (Pap Smear) 1986 Colon Cancer Screening (Colonoscopy) 2010 Breast Cancer Screening (Mammogram) 08/22/2015 Influenza Vaccine (#1) 2023 3, 11/13/2021, 01/21/2021, Additional history exists DTap / Tdap / Td (3 - Td or Tdap) 10/23/2031 10/22/2021, 10/26/2011 Shingrix-Zoster Vaccine Completed 04/01/2022, 05/06 Pneumococcal Vaccine Completed 10/08/2022, 02/05/2018, 10/03/2013, Additional history exists Hepatitis B Vaccines Completed 11/05/2022, 10/09/19 23 RSV Ped < 20 months Aged Out No longe r eligible based on patient's age to complete this topic Care Teams Viscose Cellar Charge Hand Relationship Specialty Start Date End Date Name, MD Kiel [address] [facility] [address] [place] [address] PCP - General Internal Medicine 04/17/18
--- OUTSIDE RECORDS SUMMARY | 2024-03-30 17:34 | XMS_ITS | Encounter Summary ---
Author Organization [facility] Address [address] [place] [address] [address] [place] [address] Care Team Providers Care Rn Visiting Name Role Phone Name, Kiel BAILEY Primary Care Provider [phone] Katlyn Rodriguez PharmD Unavailable [phone] Reason for Visit * Reason Comments Med Refill Encounter Details Date Type Department Care Team (Late st Contact Info) Description 07/02/2022 Refill [facility] [address] [place] [address] Name, MD Kiel [address] [place] [address] Chronic pain syndrome Social History Tobacco Use Types Packs/Day Years Used Date Smoking Tobacco: Some Days Cigarettes Passive Smoke Exposure: Never Smokeless Tobacco: Never Alcohol Use Standard Drinks/Week [...] suspected to have Coronavirus/COVID-19? No / Unsure 06/28/2022 8:34 AM EDT documented as of this encounter Plan of Treatment Upcoming Encounters Date Type Department Care Team ([facility] Contact Info) Description 05/07/2024 10:30 AM EDT Medication Management [facility] [address] [place] [address] Katlyn Rodriguez PharmD [address] [place] [address] documented as of this encounter Visit Diagnoses Diagnosis Chronic pain syndrome documented in this encounter Care Teams Rn Visiting Relationship Specialty Start Date End Date Name, MD Kiel [address] [place] [address] PCP - General Family Medicine 07/15/15 Katlyn Rodriguez, AngieD [address] [place] [address] Pharmacist Internal Medicine 10/08/22 Marta Ovalle Director Of CurriculumProduct Support Specialist 05/25/23 documented as of this encounter
--- OUTSIDE RECORDS SUMMARY | 2024-03-30 17:34 | XMS_ITS | Encounter Summary ---
Author Organization [facility] Address [address] [place] [address] Care Team Providers Care Educational Administration Teacher Name Role Phone Name, Kiel BAILEY Primary Care Provider Unavailabl e Name, Kiel BAILEY Primary Care Provider Unavailabl e Philly Vela DO Primary Care Pro vider Unavailable Name, Kiel BAILEY Primary Care Provider Unavailabl e Encounter Details Date Type Department Care Team Description 02/11/2011 Warp Tester Report Medical Records [address] [place] [address] Quinton Luther Social History Tobacco Use Types Packs/Day Years Used Date Smoking Tobacco: Every Day Cigarettes 0.3 15 Last attempted to quit: 04/19/2010 Smokeless Tobacco: Never Comments:started smoking aga in Alcohol Use Standard Drinks/Week Comments No 0 (1 standard drink = 0.6 oz pur e alcohol) Sex Assigned at Date Recorded Not on file documented as of this encounter Plan of Treatment Not on file documented as of this encounter Visit Diagnoses Not on filedocumented in this encounter Care Teams Educational Administration Teacher Relationship Specialty Start Date End Date Kiel Shaffer MD PCP - General 05/26/09 04/27/15 Kiel Shaffer MD PCP - General Internal Medicine 04/28/15 05/05/15 Philly Vela DO PCP - General Internal Medicine 05/06/15 08/27/15 Kiel Shaffer MD PCP - General Internal Medicine 08/28/15 documented as of this encounter
--- OUTSIDE RECORDS SUMMARY | 2024-03-30 17:34 | XMS_ITS | Encounter Summary ---
Author Organization [facility] Address [address] [place] [address] Care Team Providers Care Title 1 Tutor Name Role Phone Name, Kiel BAILEY Primary Care Provider [phone] Encounter Details Date Type Department Care Team (Late st Contact Info) Description 11/24/2023 10:30 AM EDT Hospital Encounter TH HISTORIC ENCOUNTERS EASTERN CONVERSION ONLY Geoffrey-Art Vitale MD [address] [place] [address] Social History Tobacco Use Types Packs/Day Years Used Date Smoking Tobacco: Every Day Cigarettes Last attempted to quit: 08/22/2014 Smokeless Tobacco: Never Alcohol Use Standard Drinks/Week Comments No 0 (1 standard drink = 0.6 oz pur e alcohol) Interpersonal Safety Answer Date Record ed Physical Abuse 02/05/2024 Verbal Abuse 02/05/2024 Sex and Gender Information Value Date Recorded [...] documented as of this encounter Care Teams Title 1 Tutor Relationship Specialty Start Date End Date Name, MD Kiel [address] [facility] [place] PCP - General Internal Medicine 08/28/15 documented as of this encounter
--- OUTSIDE RECORDS SUMMARY | 2024-03-30 17:34 | XMS_ITS | Encounter Summary ---
Author Organization [facility] Address [address] [place] [address] Care Team Providers Care Ecommerce Merchandising Manager Name Role Phone Name, Kiel BAILEY Primary Care Provider Unavailabl e Name, Kiel BAILEY Primary Care Provider Unavailabl e Philly Vela DO Primary Care Pro vider Unavailable Name, Kiel BAILEY Primary Care Provider Unavailabl e Encounter Details Date Type Department Care Team Description 12/03/2014 Hospital Medical Records [address] [place] [address] Rashad Messina MD Social History Tobacco Use Types Packs/Day [...] on filedocumented in this encounter Care Teams Ecommerce Merchandising Manager Relationship Specialty Start Date End Date Kiel Shaffer MD PCP - General 05/26/09 04/27/15 Kiel Shaffer MD PCP - General Internal Medicine 04/28/15 05/05/15 Philly Vela DO PCP - General Internal Medicine 05/06/15 08/27/15 Kiel Shaffer MD PCP - General Internal Medicine 08/28/15 documented as of this encounter
--- OUTSIDE RECORDS SUMMARY | 2024-03-30 17:34 | XMS_ITS | Encounter Summary ---
Author Organization [facility] Address [address] [place] [address] Care Team Providers Care Journal Box Inspector Name Role Phone Name, Kiel BAILEY Primary Care Provider Unavailabl e Name, Kiel BAILEY Primary Care Provider Unavailabl e Philly Vela DO Primary Care Pro vider Unavailable Name, Kiel BAILEY Primary Care Provider Unavailabl e Encounter Details Date Type Department Care Team Description 09/20/2011 Military Analyst Report Medical Records [address] [place] [address] Edy Lal MD Social History Tobacco Use Types Packs/Day [...] on filedocumented in this encounter Care Teams Journal Box Inspector Relationship Specialty Start Date End Date Kiel Shaffer MD PCP - General 05/26/09 04/27/15 Kiel Shaffer MD PCP - General Internal Medicine 04/28/15 05/05/15 Philly Vela DO PCP - General Internal Medicine 05/06/15 08/27/15 Kiel Shaffer MD PCP - General Internal Medicine 08/28/15 documented as of this encounter
--- OUTSIDE RECORDS SUMMARY | 2024-03-30 17:34 | XMS_ITS | Encounter Summary ---
Author Organization [facility] Address [address] [place] [address] Care Team Providers Care Special Effects Makeup Artist Name Role Phone Philly Vela DO Primary Care Pro vider Unavailable NameKiel MD Primary Care Provider Unavailabl e Encounter Details Date Type Department Care Team Description 08/05/2015 Release of Information Medical Records [address] [place] [address] Abstract, Provider Social History Tobacco Use Types [...] on filedocumented in this encounter Care Teams Special Effects Makeup Artist Relationship Specialty Start Date End Date Philly Vela DO PCP - General Internal Medicine 05/06/15 08/27/15 Kiel Shaffer MD PCP - General Internal Medicine 08/28/15 documented as of this encounter
--- OUTSIDE RECORDS SUMMARY | 2024-03-30 17:34 | XMS_ITS | Encounter Summary ---
Author Organization [facility] Address [address] [place] [address] Care Team Providers Care Shredder Operator Name Role Phone Name, Kiel BAILEY Primary Care Provider Unavailabl e NameKiel MD Primary Care Provider Unavailabl e Philly Vela DO Primary Care Pro vider Unavailable Name, Kiel BAILEY Primary Care Provider Unavailabl e Encounter Details Date Type Department Care Team Description 11/09/2011 Telephone Adult [address] [address] Kiel Shaffer MD Social History Tobacco Use Types Packs/Day [...] on filedocumented in this encounter Care Teams Shredder Operator Relationship Specialty Start Date End Date Kiel Shaffer MD PCP - General 05/26/09 04/27/15 Kiel Shaffer MD PCP - General Internal Medicine 04/28/15 05/05/15 Philly Vela DO PCP - General Internal Medicine 05/06/15 08/27/15 Kiel Shaffer MD PCP - General Internal Medicine 08/28/15 documented as of this encounter
--- OUTSIDE RECORDS SUMMARY | 2024-03-30 17:34 | XMS_ITS | Encounter Summary ---
Author Organization [facility] Address [address] [place] [address] Care Team Providers Care Building Analyst/Supervisor Name Role Phone Philly Vela DO Primary Care Pro vider Unavailable Kiel Shaffer MD Primary Care Provider Unavailabl e Encounter Details Date Type Department Care Team Description 07/22/2015 Intermodal Owner Operator Truck Driver Report Medical Records [address] [place] [address] Miguel Angel Echevarria PA-C Social History Tobacco Use Types Packs/Day Years [...] on filedocumented in this encounter Care Teams Building Analyst/Supervisor Relationship Specialty Start Date End Date Philly Vela DO PCP - General Internal Medicine 05/06/15 08/27/15 Kiel Shaffer MD PCP - General Internal Medicine 08/28/15 documented as of this encounter
--- OUTSIDE RECORDS SUMMARY | 2024-03-30 17:34 | XMS_ITS | Encounter Summary ---
Author Organization [facility] Address [address] [place] [address] Care Team Providers Care Hull Builder Name Role Phone Name, Kiel BAILEY Primary Care Provider Unavailabl e Name, Kiel BAILEY Primary Care Provider Unavailabl e Philly Vela DO Primary Care Pro vider Unavailable Name, Kiel BAILEY Primary Care Provider Unavailabl e Encounter Details Date Type Department Care Team Description 06/15/2011 Box Icer Report Medical Records [address] [place] [address] Mohini Ellis NP Social History Tobacco Use Types Packs/Day [...] on filedocumented in this encounter Care Teams Hull Builder Relationship Specialty Start Date End Date Kiel Shaffer MD PCP - General 05/26/09 04/27/15 Kiel Shaffer MD PCP - General Internal Medicine 04/28/15 05/05/15 Philly Vela DO PCP - General Internal Medicine 05/06/15 08/27/15 Kiel Shaffer MD PCP - General Internal Medicine 08/28/15 documented as of this encounter
--- OUTSIDE RECORDS SUMMARY | 2024-03-30 17:34 | XMS_ITS | Encounter Summary ---
Author Organization [employer] Address [address] [facility] 7t [place] [address] Care Team Providers Care Folder Hand Name Role Phone Name, Kiel BAILEY Primary Care Provider [phone] Katlyn Rodriguez PharmD Unavailable [phone] Reason for Visit * Reason Onset Date Comments Appointment Request 02/29/2024 Encounter Details Date Type Department Care Team ([facility] Contact Info) Description 02/29/2024 Telephone [facility] [address] [place], [place] [id number] Name, MD Kiel [address] [place] [address] Appointment Request Social History Tobacco Use Types Packs/Day Years Used Date Smoking Tobacco: Former Cigarettes Passive Smoke Exposure: Past Smokeless Tobacco: [...] encounter Miscellaneous Notes * Telephone Encounter - Rishi Walsh - 02/29/2024 4:12 PM EST Tc from pt requesting to cancel appt for 03/01/2024 at 9am to a different date and time. Pt does speak estonian so you will need an marine machinist. documented in this encounter Plan of Treatment Upcoming Encounters Date Type Department Care Team (Late st Contact Info) Description 05/07/2024 10:30 AM EDT Medication Management [facility] [address] [place] [address] Puia, Katlyn, PharmD [address] [place] [address] documented as of this encounter Goals Goal [...] sugar as directed Result Component No Katlyn Rodriguez, PharmD documented as of this encounter Visit Diagnoses Not on filedocumented in this encounter Additional Health Concerns Assessment Noted Time PHQ-9 Depression Total Score: 4 09/02/19 24 10:30 AM EDT documented as of this encounter Care Teams Folder Hand Relationship Specialty Start Date End Date Name, MD Kiel [address] [place] [address] PCP - General Family Medicine 07/15/15 Katlyn Rodriguez, PharmD [address] [place] [address] Pharmacist Internal Medicine 10/08/22 Marta Ovalle Nougat Cutter MachineProposal Manager 05/25/23 documented as of this encounter
--- OUTSIDE RECORDS SUMMARY | 2024-03-30 17:34 | XMS_ITS | Encounter Summary ---
Author Organization [employer] [facility] Address [address] [place] [address] 7t [place] [address] Care Team Providers Care Recreational Resort Manager Name Role Phone Name, Kiel BAILEY Primary Care Provider [phone] Katlyn Rodriguez PharmD Unavailable [phone] Reason for Visit * Reason Comments Med Refill Encounter Details Date Type Department Care Team (Late st Contact Info) Description 06/28/2022 Refill [facility] MED[facility] [address] [place] [address] Name, MD Kiel [address] [place] [address] Chronic pain syndrome Social History Tobacco Use [...] Upcoming Encounters Date Type Department Care Team ([facility] Contact Info) Description 05/07/2024 10:30 AM EDT Medication Management [facility] MED[facility] [address] [place] [address] Katlyn Rodriguez PharmD [address] [place] [address] documented as of this encounter Visit Diagnoses Diagnosis Chronic pain syndrome documented in this encounter Care Teams Recreational Resort Manager Relationship Specialty Start Date End Date Name, MD Kiel [address] [place] [address] PCP - General Family Medicine 07/15/15 Katlyn Rodriguez, AngieD [address] [place] [address] Pharmacist Internal Medicine 10/08/22 Marta Ovalle Human Resources Safety ManagerSterile Products Processor 05/25/23 documented as of this encounter
--- OUTSIDE RECORDS SUMMARY | 2024-03-30 17:34 | XMS_ITS | Encounter Summary ---
Author Organization [employer] Address [address] [facility] 7t [place] [address] Care Team Providers Care Compensation Programs Manager Name Role Phone Name, Kiel BAILEY Primary Care Provider [phone] Katlyn Rodriguez PharmD Unavailable Encounter Details Date Type Department Care Team ([facility] Contact Info) Description 01/16/2024 Orders Only [facility] External Provider, [facility] Social History Tobacco Use Types Packs/Day Years [...] t he electric, gas, oil or water iHigh threatened to shut off services in your [...] Upcoming Encounters Date Type Department Care Team ([facility] Contact Info) Description 05/07/2024 10:30 AM EDT Medication Management [facility]INE [address] [place] [address] Puia, Katlyn, PharmD [address] [place] [address] documented as of this encounter Goals Goal [...] Katlyn, PharmD documented as of this encounter Procedures Procedure Name Priority Date/Time Associated Diagnosis Comments US RENAL BI Routine 01/16/2024 11:41 AM EST documented in this encounter Results * US RENAL BI (01/16/2024 11:41 AM EST) Anatomical Region Laterality Modality Abdomen Ultrasound 01/16/2024 11:4 1 AM EST Narrative 03/10/2024 2:37 PM EST ? [facility] ?[address] ?[place] [address] ? Ultrasound Report ? Signed ? Patient: Puga,Shilpi ?MR#: [id number] ?? 92 ? : 1965 ?Acct:[id number] ? Age/Sex: 58 / F ?ADM Date: 01/16/24 ? Loc: HO.US ? Attending Dr: Cherelle ROMO ? Ordering Physician: Cherelle Trujillo ?? Date of Service: 01/16/24 ?? Procedure(s): US renal BI ?? Accession Number(s): [id number] ? cc: Cherelle Trujillo; Name,Kiel BAILEY ? EXAMINATION: ?? US RETROPERITONEAL LIMITED (RENAL ONLY) ? CLINICAL INFORMATION: ?? Calculus of kidney. ? COMPARISON: ?? Ultrasound retroperitoneal 08/17/2023. CT kidney stone study ?? 12/13/2022. Ultrasound renal 09/30/2022. X-ray KUB 04/14/2021 and ?? 11/07/2018. ? TECHNIQUE: ?? Real-time imaging of the kidneys. ? Limited visualization due to bowel gas. ? FINDINGS: ? RIGHT KIDNEY: 15.1 x 4.6 x 5.8 cm (SAG x AP x TRV). No hydronephrosis. ?? No renal calculi. Renal cortical thickness is normal. Limited ?? visualization. ? LEFT KIDNEY: 13.6 x 6.2 x 5.4 cm (SAG x AP x TRV). A 0.9 cm LEFT ?? ureteropelvic junction calculus. Mild LEFT hydronephrosis.. Renal ?? cortical thickness is normal. Limited visualization. ? US/US renal BI ?? IMPRESSION: ?? A 0.9 cm LEFT ureteropelvic junction calculus. Mild LEFT ?? hydronephrosis.. . ? Electronically signed by: ??Marisol Rodgers MD ??03/10/2024 02:34 PM EST ?? RP ? Dictated By: ?Marisol Rodgers MD ? Signed By: ?<Electronically signed by Marisol Rodgers MD in OV> ? 03/10/24 1434 ? DD/ 1141 ? TD/TT: 01/16/24 1147 ? Solar Sales Ambassador: ? Procedure Note Sarmad, Image - 01/18/[address] [address] Ultrasound Report Signed Patient: Sarita Puga MMR#: [id number] : 1965Acct:[id number] Age/Sex: 58 / FADM Date: 01/16/24 Loc: HO.US Attending Dr: Cherelle ROMO Ordering Physician: Cherelle Trujillo Date of Service: 01/16/24 Procedure(s): US renal BI Accession Number(s): [id number] cc: Cherelle Trujillo; Name,Kiel BAILEY EXAMINATION: US RETROPERITONEAL LIMITED (RENAL ONLY) CLINICAL INFORMATION: Calculus of kidney. COMPARISON: Ultrasound retroperitoneal 08/17/2023. CT kidney stone study 12/13/2022. Ultrasound renal 09/30/2022. X-ray KUB 04/14/2021 and 11/07/2018. TECHNIQUE: Real-time imaging of the kidneys. Limited visualization due to bowel gas. FINDINGS: RIGHT KIDNEY: 15.1 x 4.6 x 5.8 cm (SAG x AP x TRV). No hydronephrosis. No renal calculi. Renal cortical thickness is normal. Limited visualization. LEFT KIDNEY: 13.6 x 6.2 x 5.4 cm (SAG x AP x TRV). A 0.9 cm LEFT ureteropelvic junction calculus. Mild LEFT hydronephrosis.. Renal cortical thickness is normal. Limited visualization. US/US renal BI IMPRESSION: A 0.9 cm LEFT ureteropelvic junction calculus. Mild LEFT hydronephrosis.. . Electronically signed by: Marisol Rodgers MD 03/10/2024 02:34 PM EST Dictated By: Marisol Rodgers MD Signed By: <Electronically signed by Marisol Rodgers MD in OV> 03/10/24 1434 DD/ 1141 TD/TT: 01/16/24 1147 Solar Sales Ambassador: us [facility] External Provider IMG US PROCEDURES Edited Result - Final documented in this encounter Visit Diagnoses Not on filedocumented in this encounter Additional Health Concerns Assessment Noted Time PHQ-9 Depression Total Score: 4 09/02/19 24 10:30 AM EDT documented as of this encounter Care Teams Compensation Programs Manager Relationship Specialty Start Date End Date Name, MD Kiel [address] [place] [address] PCP - General Family Medicine 07/15/15 Katlyn Rodriguez PharmD [address] [place] [address] Pharmacist Internal Medicine 10/08/22 Marta Ovalle Muck BossMuffler Installer 05/25/23 documented as of this encounter
--- OUTSIDE RECORDS SUMMARY | 2024-03-30 17:34 | XMS_ITS | Encounter Summary ---
Author Organization [employer] [facility] Address [address] [place] [address] 7t [place] [address] Care Team Providers Care Rig Welder Name Role Phone Name, Kiel BAILEY Primary Care Provider [phone] Katlyn Rodriguez PharmD Unavailable Reason for Visit * Reason Comments Med Refill Encounter Details Date Type Department Care Team (Late Contact Info) Description 04/25/2022 Refill [facility] [address] [place] [address] Name, MD Kiel [address] [place] [address] Diabetes mellitus type 2 in obese (CMS/HCC) (Primary Dx) Social History Tobacco Use Types Packs/Day Years [...] suspected to have Coronavirus/COVID-19? No / Unsure 04/16/2022 8:34 AM EST documented as of this encounter Plan of Treatment Upcoming Encounters Date Type Department Care Team (Late Contact Info) Description 05/07/2024 10:30 AM EDT Medication Management [facility] [address] [place] [address] Katlyn Rodriguez PharmD [address] [place] [address] documented as of this encounter Visit Diagnoses Diagnosis Diabetes mellitus type 2 in obese- Primary Type II or unspecified type diabetes mellitus without mention of complication, not stated as uncontrolled documented in this encounter Care Teams Rig Welder Relationship Specialty Start Date End Date Name, MD Kiel [address] [place] [address] PCP - General Family Medicine 07/15/15 Katlyn Rodriguez PharmD [address] [place] [address] Pharmacist Internal Medicine 10/08/22 Marta Ovalle Vibration AnalystStars Specialist 05/25/23 documented as of this encounter
--- OUTSIDE RECORDS SUMMARY | 2024-03-30 17:34 | XMS_ITS | Encounter Summary ---
Author Organization [employer] Address [address] [facility] 7t [place] [address] Care Team Providers Care Marklogic Developer Name Role Phone Name, Kiel BAILEY Primary Care Provider Katlyn Rodriguez PharmD Unavailable [phone] Reason for Visit * Reason Comments Med Refill Encounter Details Date Type Department Care Team ([facility] Contact Info) Description 03/22/2024 Refill [facility] MEDICINE [address] [place] [address] Name, MD Kiel [address] [place] [address] Chronic pain syndrome Social History Tobacco Use [...] Description 05/07/2024 10:30 AM EDT Medication Management [facility] [address] [place] [address] Puia, Katlyn, PharmD [address] [place] [address] documented as of this encounter Goals Goal [...] Chronic pain syndrome documented in this encounter Additional Health Concerns Assessment Noted Time PHQ-9 Depression Total Score: 4 09/02/19 24 10:30 AM EDT documented as of this encounter Care Teams Marklogic Developer Relationship Specialty Start Date End Date Name, MD Kiel [address] [place] [address] PCP - General Family Medicine 07/15/15 Katlyn Rodriguez, AngieD [address] [place] [address] Pharmacist Internal Medicine 10/08/22 Marta Ovalle Receiving Room ClerkSpooling Machine Operator 05/25/23 documented as of this encounter
--- OUTSIDE RECORDS SUMMARY | 2024-03-30 17:34 | XMS_ITS | Encounter Summary ---
Author Organization [facility] Address [address] [place] [address] Care Team Providers Care Universal Grinder Set Up Operator Name Role Phone Name, Kiel BAILEY Primary Care Provider Unavailabl e Name, Kiel BAILEY Primary Care Provider Unavailabl e Philly Vela DO Primary Care Pro vider Unavailable Name, Kiel BAILEY Primary Care Provider Unavailabl e Encounter Details Date Type Department Care Team Description 08/15/2011 Hospital Medical Records [address] [place] [address] Dot [place] Social History Tobacco Use Types Packs/Day Years [...] on filedocumented in this encounter Care Teams Universal Grinder Set Up Operator Relationship Specialty Start Date End Date Kiel Shaffer MD PCP - General 05/26/09 04/27/15 Kiel Shaffer MD PCP - General Internal Medicine 04/28/15 05/05/15 Philly Vela DO PCP - General Internal Medicine 05/06/15 08/27/15 Kiel Shaffer MD PCP - General Internal Medicine 08/28/15 documented as of this encounter
--- OUTSIDE RECORDS SUMMARY | 2024-03-30 17:34 | XMS_ITS | Encounter Summary ---
Author Organization [facility] Address [address] [place] [address] Care Team Providers Care Kick Boxer Name Role Phone Name, Kiel BAILEY Primary Care Provider Unavailabl e Name, Kiel BAILEY Primary Care Provider Unavailabl e Philly Vela DO Primary Care Pro vider Unavailable Name, Kiel BAILEY Primary Care Provider Unavailabl e Encounter Details Date Type Department Care Team Description 12/04/2014 Hospital Medical Records [address] [place] [address] Josh Martinez NP [address] [place] [address] Social History Tobacco Use Types Packs/Day Years [...] on filedocumented in this encounter Care Teams Kick Boxer Relationship Specialty Start Date End Date Kiel Shaffer MD PCP - General 05/26/09 04/27/15 Kiel Shaffer MD PCP - General Internal Medicine 04/28/15 05/05/15 Philly Vela DO PCP - General Internal Medicine 05/06/15 08/27/15 Kiel Shaffer MD PCP - General Internal Medicine 08/28/15 documented as of this encounter
--- OUTSIDE RECORDS SUMMARY | 2024-03-30 17:34 | XMS_ITS | Encounter Summary ---
Author Organization [employer] Address [address] [facility] [address] 7t [place] [address] Care Team Providers Care Service Administrator Name Role Phone Name, Kiel BAILEY Primary Care Provider [phone] Katlyn Rodriguez PharmD Unavailable [phone] Reason for Visit * Reason Comments Med Refill Encounter Details Date Type Department Care Team ([facility] Contact Info) Description 03/21/2024 Refill [facility] [address] [place] [phone] Name, MD Kiel [address] [place] [address] Urticaria Social History Tobacco Use Types Packs/Day Years [...] Description 05/07/2024 10:30 AM EDT Medication Management [facility] [address] [place] [address] Puia, Katlyn, PharmD [address] [place] [address] documented as of this encounter Goals Goal [...] as of this encounter Visit Diagnoses Diagnosis Urticaria Unspecified urticaria documented in this encounter Additional Health Concerns Assessment Noted Time PHQ-9 Depression Total Score: 4 09/02/19 24 10:30 AM EDT documented as of this encounter Care Teams Service Administrator Relationship Specialty Start Date End Date Name, MD Kiel [address] [place] [address] PCP - General Family Medicine 07/15/15 Katlyn Rodriguez, AngieD [address] [place] [address] MILO Han [phone] Pharmacist Internal Medicine 10/08/22 Marta Ovalle Battalion Fire ChiefSales Teacher 05/25/23 documented as of this encounter
--- OUTSIDE RECORDS SUMMARY | 2024-03-30 17:34 | XMS_ITS | Encounter Summary ---
Author Organization [facility] Address [address] [place] [address] Care Team Providers Care Wireless Construction Manager Name Role Phone Name, Kiel BAILEY Primary Care Provider Unavailabl e Name, Kiel BAILEY Primary Care Provider Unavailabl e Philly Vela DO Primary Care Pro vider Unavailable Name, Kiel BAILEY Primary Care Provider Unavailabl e Encounter Details Date Type Department Care Team Description 01/26/2011 Home Health Certification Medical Records [address] [place] [address] Vna Social History Tobacco Use Types Packs/Day Years [...] on filedocumented in this encounter Care Teams Wireless Construction Manager Relationship Specialty Start Date End Date Kiel Shaffer MD PCP - General 05/26/09 04/27/15 Kiel Shaffer MD PCP - General Internal Medicine 04/28/15 05/05/15 Philly Vela DO PCP - General Internal Medicine 05/06/15 08/27/15 Kiel Shaffer MD PCP - General Internal Medicine 08/28/15 documented as of this encounter
--- OUTSIDE RECORDS SUMMARY | 2024-03-30 17:34 | XMS_ITS | Encounter Summary ---
Author Organization [facility] Address [address] [place] [address] Care Team Providers Care Label Remover Name Role Phone NameKiel MD Primary Care Provider Unavailabl e Encounter Details Date Type Department Care Team Description 12/12/2015 Transfer Records Medical Records [address] [place] [address] Balaji Johnson DO Social History Tobacco Use Types Packs/Day Years [...] on filedocumented in this encounter Care Teams Label Remover Relationship Specialty Start Date End Date Name, MD Kiel PCP - General Internal Medicine 08/28/15 documented as of this encounter
--- OUTSIDE RECORDS SUMMARY | 2024-03-30 17:34 | XMS_ITS | Encounter Summary ---
Author Organization [facility] Address [address] [facility] 7t [place] [address] Care Team Providers Care Janitor Caretaker Name Role Phone Name, Kiel BAILEY Primary Care Provider [phone] Katlyn Rodriguez PharmD Unavailable [phone] Encounter Details Date Type Department Care Team ([facility] Contact Info) Description 02/23/2022 Orders Only [facility] [address] [place] [address] Name, MD Kiel [address] [place] [address] Social History Tobacco Use Types Packs/Day Years Used Date Smoking Tobacco: Every Day Cigarettes Alcohol Use Standard Drinks/Week Comments Never 0 (1 standard drink = 0.6 oz pur e alcohol) Comments Unknown Sex and Gender Information Value [...] suspected to have Coronavirus/COVID-19? No / Unsure 02/11/2022 12:46 PM EST documented as of this encounter Plan of Treatment Upcoming Encounters Date Type Department Care Team ([facility] Contact Info) Description 05/07/2024 10:30 AM EDT Medication Management [facility] MEDICINE [address] [place] [address] PuiaKatlyn, PharmD [address] [place] [address] documented as of this encounter Visit Diagnoses Not on filedocumented in this encounter Care Teams Janitor Caretaker Relationship Specialty Start Date End Date Name, MD Kiel [address] [place] [address] PCP - General Family Medicine 07/15/15 Katlyn Rodriguez PharmD [address] [place] [address] Pharmacist Internal Medicine 10/08/22 Marta Ovalle Stores Despatch HandInternet Project Manager 05/25/23 documented as of this encounter
--- OUTSIDE RECORDS SUMMARY | 2024-03-30 17:34 | XMS_ITS | Encounter Summary ---
Author Organization [employer] [facility] Address [address] [place] [address] 7t [place] [address] Care Team Providers Care Pst Specialist Name Role Phone Name, Kiel BAILEY Primary Care Provider [phone] Katlyn Rodriguez PharmD Unavailable [phone] Encounter Details Date Type Department Care Team ([facility] Contact Info) Description 08/26/[address] [facility] MEDICINE [address] [place] [address] Leia Gonzales LPN Social History Tobacco Use Types Packs/Day Years Used Date Smoking Tobacco: Former Cigarettes Passive Smoke Exposure: Past Smokeless Tobacco: Never Alcohol Use Standard Drinks/Week Comments Yes 2 (1 standard drink = 0.6 oz pur e alcohol) Events/ Holidays Depression Answer Date Recorded Patient Health Questionnaire-9 Score 7 07/14/2022 Depression Answer Date Recorded Patient Health Questionnaire-2 [...] suspected to have Coronavirus/COVID-19? No / Unsure 08/27/2022 12:15 PM EDT documented as of this encounter Plan of Treatment Upcoming Encounters Date Type Department Care Team ([facility] Contact Info) Description 05/07/2024 10:30 AM EDT Medication Management [facility] [address] [place] [address] [phone] Katlyn Rodriguez PharmD [address] [place] [address] documented as of this encounter Visit Diagnoses Not on filedocumented in this encounter Additional Health Concerns Assessment Noted Time PHQ-9 Depression Total Score: 7 07/15/19 23 2:39 PM EDT documented as of this encounter Care Teams Pst Specialist Relationship Specialty Start Date End Date Name, MD Kiel [address] [place] [address] PCP - General Family Medicine 07/15/15 Katlyn Rodriguez, Bin [address] [place] [address] Pharmacist Internal Medicine 10/08/22 Marta Ovalle Fiber Optic AssemblerLens Coating Technician 05/25/23 documented as of this encounter
--- OUTSIDE RECORDS SUMMARY | 2024-03-30 17:34 | XMS_ITS | Encounter Summary ---
Author Organization [facility] Address [address] [place] [address] Care Team Providers Care Senior Electrical Estimator Name Role Phone Name, Kiel BAILEY Primary Care Provider Unavailabl e Name, Kiel BAILEY Primary Care Provider Unavailabl e Philly Vela DO Primary Care Pro vider Unavailable Name, Kiel BAILEY Primary Care Provider Unavailabl e Encounter Details Date Type Department Care Team Description 09/09/2011 Ballistics Teacher Report Medical Records [address] [place] [address] Quinton Ltuher Social History Tobacco Use Types Packs/Day Years [...] on filedocumented in this encounter Care Teams Senior Electrical Estimator Relationship Specialty Start Date End Date Kiel Shaffer MD PCP - General 05/26/09 04/27/15 Kiel Shaffer MD PCP - General Internal Medicine 04/28/15 05/05/15 Philly Vela DO PCP - General Internal Medicine 05/06/15 08/27/15 Kiel Shaffer MD PCP - General Internal Medicine 08/28/15 documented as of this encounter
--- OUTSIDE RECORDS SUMMARY | 2024-03-30 17:34 | XMS_ITS | Encounter Summary ---
Author Organization [facility] Address [address] [place] [address] Care Team Providers Care Credentialing Analyst Name Role Phone Name, Kiel BAILEY Primary Care Provider Unavailabl e Name, Kiel BAILEY Primary Care Provider Unavailabl e Philly Vela DO Primary Care Pro vider Unavailable Name, Kiel BAILEY Primary Care Provider Unavailabl e Encounter Details Date Type Department Care Team Description 01/31/2014 Home Health Certification Medical Records [address] [place] [address] Social History Tobacco Use Types Packs/Day Years [...] on filedocumented in this encounter Care Teams Credentialing Analyst Relationship Specialty Start Date End Date Kiel Shaffer MD PCP - General 05/26/09 04/27/15 Kiel Shaffer MD PCP - General Internal Medicine 04/28/15 05/05/15 Philly Vela DO PCP - General Internal Medicine 05/06/15 08/27/15 Kiel Shaffer MD PCP - General Internal Medicine 08/28/15 documented as of this encounter
--- OUTSIDE RECORDS SUMMARY | 2024-03-30 17:34 | XMS_ITS | Encounter Summary ---
Author Organization [facility] Address [address] [place] [address] Care Team Providers Care Public Health Veterinarian Name Role Phone NameKiel MD Primary Care Provider Unavailabl e Encounter Details Date Type Department Care Team Description 01/27/2021 Plastic Parts Fabricator Report Medical Records [address] [place] [address] Abstract, Provider Social History Tobacco Use Types [...] on filedocumented in this encounter Care Teams Public Health Veterinarian Relationship Specialty Start Date End Date Name, MD Kiel PCP - General Internal Medicine 08/28/15 documented as of this encounter
--- OUTSIDE RECORDS SUMMARY | 2024-03-30 17:34 | XMS_ITS | Encounter Summary ---
Author Organization [facility] Address [address] [place] [address] Care Team Providers Care Embroidery Patternmaker Name Role Phone NameKiel MD Primary Care Provider Unavailabl e Encounter Details Date Type Department Care Team Description 12/12/2015 Transfer Records Medical Records [address] [place] [address] Balaji Johnson DO Social History Tobacco Use [...] on filedocumented in this encounter Care Teams Embroidery Patternmaker Relationship Specialty Start Date End Date Name, MD Kiel PCP - General Internal Medicine 08/28/15 documented as of this encounter
--- OUTSIDE RECORDS SUMMARY | 2024-03-30 17:34 | XMS_ITS | Encounter Summary ---
Author Organization [facility] Address [address] [place] [address] Care Team Providers Care Buckle Sorter Name Role Phone Name, Kiel BAILEY Primary Care Provider [phone] Encounter Details Date Type Department Care Team (Late st Contact Info) Description 11/24/2023 9:53 AM EDT Hospital Encounter TH HISTORIC ENCOUNTERS EASTERN CONVERSION ONLY Geoffrey-Art Vitale MD [address] [place] [address] Social History Tobacco Use Types [...] 2:17 PM Encounter Date: 11/24/2023 Status: Signed Control Panel Builder: Art Davis MD (Physician) CHIEF COMPLAINT: Chief Complaint Patient presents with ? Follow-up Diffuse large B-cell lymphoma Stage III Completed 6 cycles of R-CHOP in July 23, 2018 IDENTIFIER:Sarita Puga is a 58 y.o. female. HPI: The patient returns for follow up of Large B-cell lymphoma. Here with her daughter , who is irish to thai seedling puller Patient reports that she has been doing [...] accompanied by her daughter and girlfriend. As [place] to [place] seedling puller assisted with the discussion. She had a [...] documented in this encounter Plan of Treatment Not on file documented as of this encounter Procedures Procedure Name Priority Date/Time Associated Diagnosis Comments HISTORICAL IMAGING SCAN RESULT 11/24/2023 documented in this encounter Results * HISTORICAL IMAGING SCAN RESULT (11/24/2023) Anatomical Region Laterality Modality Ultrasound Provider Onbase MD GARAY US PROCEDURES documented in this encounter Visit Diagnoses Not on filedocumented in this encounter Additional Health Concerns Infection Onset Date Last Indicated Resolved Time Respiratory Rule-Out 02/05/2024 02/05/2024 024 8:09 AM EST COVID-19 Rule-Out 02/05/2024 02/05/2024 02/05/2024 8:09 AM EST documented as of this encounter Care Teams Buckle Sorter Relationship Specialty Start Date End Date Name, MD Kiel [address] [place] [address] PCP - General Internal Medicine 08/28/15 documented as of this encounter
--- OUTSIDE RECORDS SUMMARY | 2024-03-30 17:34 | XMS_ITS | Clinical Summary ---
Author Organization [address] [facility] Address [address] [place] [address] Phone Care Team Providers Care Mill Turner Name Role Phone Name, Kiel BAILEY Primary Care Provider [phone] Allergies Active Allergy Reactions Criticality Noted Date Comments Penicillins Swelling 06/05/2009 Medications Medication Sig Dispensed Refills Start Date End Date Status metoprolol succinate (TOPROL-XL) 25 mg 24 hr tablet Take 1 tablet (25 mg total) by mouth 1 (one) time each day. 08/27/2015 Active insulin glargine (LANTUS) 100 unit/mL injection Inject 36 Units under the skin at bedtime. Active montelukast (SINGULAIR) 10 mg tablet TAKE ONE TABLET BY MOUTH AT BEDTIME 06/23/2015 Active isopropyl alcohol-benzocaine 70-6 % pads, medicated USE TO TEST FINGER STICK BLOOD SUGAR TWICE DAILY 06/23/2015 Active medical supply, miscellaneous (MISCELLANEOUS MEDICAL SUPPLY MISC) U[employer] SHORT PEN NEEDLES 31G X 8 MM USE FOUR TIMES DAILY TO INJECT insulin WITH A MEAL AND AT BEDTIME 06/23/2015 Active blood sugar diagnostic (FreeStyle Lite Strips) test strip USE TO TEST FINGER STICK BLOOD SUGAR TWICE DAILY DIRECTED 06/23/2015 Active medical supply, miscellaneous (MISCELLANEOUS MEDICAL SUPPLY MISC) MISC. DEVICES (COMMODE BEDSIDE) MIS 1 Device by Does not apply route as needed (voiding/bm). 12/10/2014 Active ASPIRIN ORAL Take 1 Tab by mouth daily. 11/27/2014 Active lancets (Sure Comfort Lancets) 30 gauge misc USE TO TEST FINGER STICK BLOOD SUGAR TWICE DAILY 09/11/2014 Active FREESTYLE LANCETS MISC 1 Each by Does not apply route 2 times daily. 05/17/2012 Active diclofenac (Voltaren Arthritis Pain) 1 % topical gel Apply once a day to the affected hand 11/10/2011 Active blood-glucose meter kit Use to test bs twice daily 10/14/2011 Active calcium carbonate-vitamin D3 600 mg-5 mcg (200 unit) per tablet Take 1 Tab by mouth 2 times daily. 08/17/2010 Active loratadine (CLARITIN) 10 mg tablet 1 TABLET DAILY Active famotidine (PEPCID) 20 mg tablet Take 1 tablet (20 mg total) by mouth 2 times daily. 11/28/2023 Active furosemide (LASIX) 20 mg tablet Take 1 tablet (20 mg total) by mouth 1 (one) time each day in the morning. Active PARoxetine (PAXIL) 40 mg tablet Take 1 tablet (40 mg total) by mouth 1 (one) time each day in the morning. Active prednisoLONE acetate (PRED FORTE) 1 % ophthalmic suspension Administer 1 drop into the left eye 4 (four) times a day. Active tamsulosin (FLOMAX) 0.4 mg 24 hr capsule Take 1 capsule (0.4 mg total) by mouth 1 (one) time each day. Capsules should be taken 30 minutes following the same meal each day. Active traZODone (DESYREL) 50 mg tablet Take 1 tablet (50 mg total) by mouth at bedtime as needed for sleep. Active baclofen (LIORESAL) 10 mg tablet Take by mouth 3 (three) times a day if needed for muscle spasms. Active atorvastatin (LIPITOR) 80 mg tablet Take 1 tablet (80 mg total) by mouth at bedtime. Active cloNIDine (CATAPRES) 0.1 mg tablet Take 1 tablet (0.1 mg total) by mouth at bedtime. Active ezetimibe (ZETIA) 10 mg tablet Take 1 tablet (10 mg total) by mouth 1 (one) time each day. Active insulin lispro 100 unit/mL injection Inject 12 Units under the skin 1 (one) time each day. -Administer within 15 minutes of a meal morning Active losartan (COZAAR) 50 mg tablet Take 1 tablet (50 mg total) by mouth 1 (one) time each day. Active metFORMIN (FORTAMET) 500 mg 24 hr tablet Take 1 tablet (500 mg total) by mouth 1 (one) time each day with dinner. Do not crush, chew, or split. Active ipratropium-albuteroL (DUONEB) 0.5-2.5 mg/3 mL nebulizer solution Take 3 mL by nebulization 4 (four) times a day for 10 days. 120 mL 02/06/2024 Active budesonide (PULMICORT) 0.5 mg/2 mL nebulizer solution Take 2 mL (0.5 mg total) by nebulization 2 (two) times a day for 10 days. Rinse mouth with water after use to reduce aftertaste and incidence of candidiasis. Do not swallow. 40 mL 02/06/2024 Active nicotine (NICODERM CQ) 21 mg/[address] 1 patch on the skin 1 (one) time each day. 30 each 02/07/2024 Active OXcarbazepine (TRILEPTAL) 300 mg tablet Take 1 tablet (300 mg total) by mouth at bedtime. Take with 150 mg tablet to equal 450 mg at HS 0 02/06/2024 Active OXcarbazepine (TRILEPTAL) 150 mg tablet Take 1 tablet (150 mg total) by mouth 2 (two) times a day. 02/06/2024 Active Active Problems Problem Noted Date Diagnosed Date COPD exacerbation 02/05/2024 Abnormal nuclear stress test 11/06/2014 Rib fracture 12/24/2013 Overview (12/12/2023): Non displaced, probable froacture on the right ninth and tenth Abdominal pain 08/15/2013 Lipoma of abdominal wall 11/02/2011 Visual field defect 03/29/2011 Cocaine abuse, episodic use 06/17/2010 Low back pain radiating to left leg 10/08/2009 Overview (12/12/2023): The patient follows with [facility] and is treated with injections to the LS. Asthmatic bronchitis , chronic 07/07/2009 Overview (12/12/2023): Severe and worse in the spring. Last hospitalazion in May and 3 ER visits Hospital 08/02 Known medical problems 06/05/2009 Tobacco use disorder 06/05/2009 Hypertriglyceridemia 06/05/2009 Morbid obesity 06/05/2009 Overview (12/12/2023): BMI 48.37 on 11/15/13 Depression 06/05/2009 Encounters Date Type Department Care Team Description 02/05/2024 7:16 AM EST - 02/06/2024 12:30 PM EST Emergency [facility] [address] [place] [address] Dada Ceja MD Bukalo, Nermina, MD Bell, Alistair A, MD COPD exacerbation (CMS/HCC) (Primary Dx) Discharge Disposition: Home or Self Care from Last 3 Months Immunizations Name Administration Dates Next Due Influenza trivalent, 0.5mL, preservative free (Fluarix; FluLaval; Fluzone) ages 6mo and older (Afluria) 3 years and older 12/10/2014,11/02/2012,10/26/2011,11/03 Pneumococcal polysaccharide 23 valent (Pneumovax 23) 2yo and older 10/03/2013 Tdap Tetanus diptheria acell ular pertussis (Boostrix; Adacel) 7yo and older 10/26/2011 Surgical History Surgery Date Site/Laterality Comments APPENDECTOMY PROCEDURE: HISTORICAL APPENDECTOMY SECTION PROCEDURE: HISTORICAL ; COMMENT: one out of 5 deliveries HYSTERECTOMY - age 30 PROCEDURE: HISTORICAL TOTAL HYSTERECTOMY WITH BSO; COMMENT: for bleeding, [facility] Medical History Medical History Date Comments Type II or unspecified type diabetes mellitus with unspecified complication, not stated as uncontrolled DX:Type II or unspecified t ype diabetes mellitus with unspecified complication, not stated as uncontrolled Unspecified essential hypertension DX:Unspecified essential hypertension Tobacco abuse DX:Tobacco abuse RAD (reactive airway disease) DX :RAD (reactive airway disease) Morbid obesity (CMS/HCC) DX:Morb id obesity (HCC) Asthmatic bronchitis , chronic (CMS/HCC) 07/08/19 10 DX:Asthmatic bronchitis , chronic (HCC) Hypertriglyceridemia 06/05/2009 DX:Hypertri glyceridemia Rib fracture 12/24/2013 DX:Rib fracture Family History Medical History Relation Name Comments Blindness Brother 1 Breast cancer Maternal Grandmother Cataracts Maternal Grandmother Blindness Mother Glaucoma Neg Hx Macular degeneration Neg Hx Strabismus Neg Hx Relation Name Status Comments Brother 1 Brother 2 NH Brother 3 Alive 6 brothers are diabetic Daughter 1 Alive Daughter 2 Alive Father DM Maternal Grandmother Mother DM Sister Alive 3 sisters are d iabetic Son 1 Alive Son 2 Alive Son 3 Alive Social History Tobacco Use Types Packs/Day Years [...] file Not on file Not on file Obstetrics History Last Filed Vital Signs Vital Sign Reading Time Taken Comments Blood Pressure 126/70 02/06/2024 7:50 AM EST Pulse 82 02/06/2024 7:50 AM EST Temperature 36.1 ??C (97 ??F) 02/06/2024 7:50 AM EST Respiratory Rate 20 02/06/2024 7:50 AM EST Oxygen Saturation 96% 02/06/2024 7:50 AM EST Inhaled Oxygen Concentration - - Weight 106 kg (233 lb 12.8 oz) 02/05/2024 9:16 P M EST Height 160 cm (5' 3 ) 02/05/2024 9:16 PM EST Body Mass Index 41.42 02/05/2024 9:16 PM EST Plan of Treatment Health Maintenance Due Date Last Done Comments Breast Cancer Screening 1965 Diabetes: Annual Foot Exam 08/22/1975 Diabetes: Annual Retina Eye Exam 08/22/1975 Hepatitis A Vaccines (1 of 2 - Risk 2-dose series) 1984 Cervical Cancer Screening: Pap Smear 1986 Colorectal Cancer Screening: Colonoscopy 01/29/2022 HIV Screening 01/29/2022 Social Influencers of Health Screening 01/29/2022 Diabetes: Annual Urine Albumin-Creatinine Ratio (uACR) 02/06/2022 05/10/2014 COVID-19 Vaccine ( season) 2023 12/15/2021, 03/13/2021, 08/18/2020, Additional history exists Diabetes: Blood Sugar Control Test (HGBA1C) 08/01/2024 02/01/2024, 11/20/2014 Depression Screening 09/01/2024 09/02/2023 Diabetes: Annual GFR (Glomerular Filtration Rate) 02/05/2025 02/06/2024, 02/05/2024, 11/20/2014 Hypertension/CHF/CAD Annual BMP Blood Test 02/05/2025 02/06/2024, 02/05/2024, 11/20/2014 Cholesterol Screening (Lipid Panel) 10/24/2028 10/25/2023, 05/10/2014 DTaP,Tdap,and Td Vaccines (4 - Td or Tdap) 11/14/2031 11/13/2021, 10/22/2021, 10/26/2011 Hepatitis C Screening Completed 10/10/2013 Zoster Vaccines Completed 04/01/2022, 05/06/2021 Pneumococcal Vaccine: Pediatrics (0 to 5 Years) and At-Risk Patients (6 to 64 Years) Completed 10/08/2022, 02/05/2018, 10/03/2013, Additional history exists Hepatitis B Vaccines Completed 11/05/2022, 10/09/19 Influenza Vaccine Completed 11/29/2023, , 11/13/2021, Additional history exists HIB Vaccines Aged Out No longer eligi ble based on patient's age to complete this topic HPV Vaccines Aged Out No longer eligi ble based on patient's age to complete this topic IPV Vaccines Aged Out No longer eligi ble based on patient's age to complete this topic MMR Vaccines Aged Out No longer eligi ble based on patient's age to complete this topic Meningococcal ACWY Vaccine Aged Out N o longer eligible based on patient's age to complete this topic RSV Immunization Patients Under 20 months Aged Out No longer eligible based on patient's age to complete this topic Varicella Vaccines Aged Out No longer eligible based on patient's age to complete this topic Procedures Procedure Name Priority Date/Time Associated Diagnosis Comments POCT GLUCOSE BLOOD Routine 02/06/2024 11 :09 AM EST POCT GLUCOSE BLOOD Routine 02/06/2024 7: 51 AM EST PEP THERAPY Routine 02/06/2024 7:34 AM EST TROPONIN I HIGH SENSITIVITY Routine 02/06/2024 4:38 AM EST LT BLUE - NA CITRATE Routine 02/06/2024 2:59 AM EST EXTRA TUBES Routine 02/06/2024 2:59 AM EST TROPONIN I HIGH SENSITIVITY Routine 02/06/2024 2:59 AM EST COMPLETE BLOOD COUNT Routine 02/06/2024 2:59 AM EST BASIC METABOLIC PANEL Routine 02/06/2024 2:59 AM EST POCT GLUCOSE BLOOD Routine 02/05/2024 4: 45 PM EST POCT GLUCOSE BLOOD Routine 02/05/2024 11 :21 AM EST OXYGEN THERAPY, ADULT Routine 02/05/2024 10:50 AM EST OXYGEN THERAPY, ADULT Routine 02/05/2024 10:50 AM EST OXYGEN THERAPY, ADULT Routine 02/05/2024 10:50 AM EST XR CHEST 2 VIEWS STAT 02/05/2024 7:17 AM EST ECG 12-LEAD STAT 02/05/2024 7:01 AM EST CBC WITH AUTO DIFFERENTIAL STAT 02/05/2024 6:55 AM EST BASIC METABOLIC PANEL STAT 02/05/2024 6:55 AM EST CBC AND DIFFERENTIAL STAT 02/05/2024 6:55 AM EST RESPIRATORY VIRUS PANEL MOLECULAR STUDY STAT 02/05/2024 6:51 AM EST ECG ANNOTATED 02/05/2024 HEMOGLOBIN A1C Routine 11/20/2014 URINE ALBUMIN CREATININE RATIO Routine 05/10/2014 LIPID PANEL Routine 05/10/2014 HEPATITIS C SCREENING Routine 10/10/2013 from Last 3 Months or Most Recently Relevant to Health Maintenance Results * (ABNORMAL) POCT Glucose, blood (02/06/2024 11:09 AM EST) Only the most recent of4 resultswithin the time period is included. Glucose POCT 262(H) 70 - 100 mg/dL 02/06/2024 11:09 AM EST [facility] Blood Capillary blood specimen / Unknown 02/06/2024 11:09 AM EST 02/06/2024 11:10 AM EST Adrian Chinchilla MD LAB POINT OF CARE TE ST DOCKED DEVICE UNSOLICITED RESULTS [facility] [address] [place] [address], * Troponin I high sensitivity (02/06/2024 4:38 AM EST) Only the most recent of2 resultswithin the time period is included. [facility] High Sensitivity Troponin I 4 <=54 ng/L LAB CHEMISTRY METHOD 02/06/2024 5:37 AM EST [facility] Blood Venous blood specimen / Unknown Venipuncture / Unknown 02/06/2024 4:38 AM EST 02/06/2024 5:04 AM EST Narrative [facility] - 02/06/2024 5:37 AM EST High levels of biotin in samples may falsely decrease hsTroponin values. ??Use caution when interpreting hsTroponin results in patients taking biotin who exhibit renal impairment (eGFR <60) or in patients taking more than 20 mg/day of biotin. Cindy SEGURA LAB BLOOD ORDERABLES Performing Organization Address City/[facility]/ZIP Co de Phone Number [facility] [address] [place] [address], * Light blue tube (02/06/2024 2:59 AM EST) [facility] Extra Tube Hold for add-ons. 02/06/2024 5:01 AM EST [facility] Comment:Auto resulted. Blood Venous blood specimen / Unknown 02/06/2024 2:59 AM EST 02/06/2024 3:14 AM EST Delroy Jimenez MD LAB BLOOD ORDERABLES Performing Organization Address City/[facility]/ZIP Co de Phone Number [facility] [address] [place] [address], [place] [phone] * (ABNORMAL) Complete blood count (02/06/2024 2:59 AM EST) [facility] WBC 10.0 4.8 - 10.8 K/mcL LAB HEMETOLOGY METHOD 02/06/2024 3:26 AM [facility] RBC 4.40 3.80 - 4.80 M/mcL LAB HEMETOLOGY METHOD 02/06/2024 3:26 AM [facility] Hemoglobin 12.2 11.5 - 16.0 g/dL LAB HEMETOLOGY METHOD 02/06/2024 3:26 AM [facility] Hematocrit 38.9 35.0 - 47.0 % LAB HEMETOLOGY METHOD 02/06/2024 3:26 AM [facility] MCV 88.4 79.0 - 98.0 FL LAB HEMETOLOGY METHOD 02/06/2024 3:26 AM [facility] MCH 27.7 27.0 - 32.0 pcg LAB HEMETOLOGY METHOD 02/06/2024 3:26 AM [facility] MCHC 31.4(L) 32.0 - 37.0 g/dL LAB HEMETOLOGY METHOD 02/06/2024 3:26 AM EST [facility] RDW 13.2 11.0 - 15.0 % LAB HEMETOLOGY METHOD 02/06/2024 3:26 AM [facility] Platelets 175 130 - 400 K/mcL LAB HEMETOLOGY METHOD 02/06/2024 3:26 AM [facility] MPV 12.4(H) 7.0 - 11.0 FL LAB HEMETOLOGY METHOD 02/06/2024 3:26 AM [facility] NRBC 0.0 <1.0 % LAB HEMETOLOGY METHOD 02/06/2024 3:26 AM [facility] NRBC Absolute 0.00 <0.10 K/mcL LAB HEMETOLOGY METHOD 02/06/2024 3:26 AM [facility] Blood Venous blood specimen / Unknown Venipuncture / Unknown 02/06/2024 2:59 AM EST 02/06/2024 3:13 AM EST Cindy SEGURA LAB BLOOD ORDERABLES [facility] [address] [place] [address], * (ABNORMAL) Basic metabolic panel (02/06/2024 2:59 AM EST) Only the most recent of2 resultswithin the time period is included. Sodium 136 133 - 145 mmol/L LAB CHEMISTRY METHOD 02/06/2024 3:36 AM [facility] Potassium 4.1 3.5 - 5.5 mmol/L LAB CHEMISTRY METHOD 02/06/2024 3:36 AM [facility] Chloride 104 96 - 110 mmol/L LAB CHEMISTRY METHOD 02/06/2024 3:36 AM EST [facility] CO2 23 21 - 32 mmol/L LAB CHEMISTRY METHOD 02/06/2024 3:36 AM [facility] Anion Gap 9 3 - 11 LAB CHEMISTRY METHOD 02/06/2024 3:36 AM [facility] Glucose 244(H) 70 - 100 mg/dL LAB CHEMISTRY METHOD 02/06/2024 3:36 AM [facility] BUN 17 5 - 25 mg/dL LAB CHEMISTRY METHOD 02/06/2024 3:36 AM [facility] Creatinine 0.71 0.50 - 1.10 mg/dL LAB CHEMISTRY METHOD 02/06/2024 3:36 AM [facility] eGFR 99 >=60 mL/min/1. 73m2 LAB CHEMISTRY METHOD 02/06/2024 3:36 AM [facility] Comment:Calculation based on the??Chronic Kidney Disease Epidemiology Collaboration (CKD-EPI) equation refit??without adjustment for race. BUN/Creatinine Ratio 23.9 LAB CHEMISTRY METHOD 02/06/2024 3:36 AM [facility] Calcium 9.3 8.5 - 10.5 mg/dL LAB CHEMISTRY METHOD 02/06/2024 3:36 AM [facility] Blood Venous blood specimen / Unknown Venipuncture / Unknown 02/06/2024 2:59 AM EST 02/06/2024 3:13 AM EST Cindy SEGURA LAB BLOOD ORDERABLES [facility] [address] [place] [address], * XR Chest 2 Views (02/05/2024 7:17 AM EST) Anatomical Region Laterality Modality Body Radiographic Diana ging 02/05/2024 8:11 AM EST Impressions 02/05/2024 8:11 AM EST The lungs are clear bilaterally. ??The mediastinum appears within normal limits. -------- FINAL REPORT -------- Dictated By: Wesley Ashton Dictated Date: 02/05/2024 08:11 ET Assigned Physician: Wesley Ashton Reviewed and Electronically Signed By: Wesley Ashton Signed Date: 02/05/2024 08:11 ET Workstation ID: [id number] Transcribed By: Self Edit Transcribed Date: 02/05/2024 08:11 ET Narrative 02/05/2024 8:11 AM EST Frontal and lateral view of the chest COMPARISON: Chest radiograph October 05 INDICATION: Dyspnea Procedure Note Wesley Ashton MD - 02/05/2024 Frontal and lateral view of the chest COMPARISON: Chest radiograph October 05 INDICATION: Dyspnea IMPRESSION: The lungs are clear bilaterally. The mediastinum appears within normallimits. -------- FINAL REPORT -------- Dictated By: Wesley Ashton Dictated Date: 02/05/2024 08:11 ET Assigned Physician: Wesley Ashton Reviewed and Electronically Signed By: Wesley Ashton Signed Date: 02/05/2024 08:11 ET Workstation ID: [id number] Transcribed By: Self Edit Transcribed Date: 02/05/2024 08:11 ET Kathy Nazario MD IMG XR PROCEDURE S * ECG 12 lead (02/05/2024 7:01 AM EST) Ventricular Rate ECG 80 BPM GEMUSE Atrial Rate 80 BPM GEMUSE P-R Interval 130 ms GEMUSE QRS Duration 96 ms GEMUSE Q-T Interval 344 ms GEMUSE QTc 396 ms GEMUSE P Wave [place] 21 degrees GEMUSE R [place] -9 degrees GEMUSE T [place] 3 degrees GEMUSE ECG Interpretation Normal sinus rhythm Voltage criteria for left ventricular hypertrophy Abnormal ECG When compared with ECG of 06-OCT-2023 08:32, No significant change was found Confirmed by Abeba ROCHA JAMES ([id number]) on 02/05/2024 6:18:14 PM GEMUSE 02/05/2024 7:01 AM EST 02/05/2024 6:18 PM EST Kathy Nazario MD ECG ORDERABLES GEMUSE * (ABNORMAL) CBC auto differential (02/05/2024 6:55 AM EST) WBC 9.1 4.8 - 10.8 K/mcL LAB HEMETOLOGY METHOD 02/05/2024 7:16 AM [facility] RBC 5.00(H) 3.80 - 4.80 M/mcL LAB HEMETOLOGY METHOD 02/05/2024 7:16 AM [facility] Hemoglobin 13.8 11.5 - 16.0 g/dL LAB HEMETOLOGY METHOD 02/05/2024 7:16 AM [facility] Hematocrit 43.7 35.0 - 47.0 % LAB HEMETOLOGY METHOD 02/05/2024 7:16 AM [facility] MCV 87.1 79.0 - 98.0 FL LAB HEMETOLOGY METHOD 02/05/2024 7:16 AM [facility] MCH 27.5 27.0 - 32.0 pcg LAB HEMETOLOGY METHOD 02/05/2024 7:16 AM [facility] MCHC 31.6(L) 32.0 - 37.0 g/dL LAB HEMETOLOGY METHOD 02/05/2024 7:16 AM [facility] RDW 13.3 11.0 - 15.0 % LAB HEMETOLOGY METHOD 02/05/2024 7:16 AM [facility] Platelets 200 130 - 400 K/mcL LAB HEMETOLOGY METHOD 02/05/2024 7:16 AM [facility] MPV 12.4(H) 7.0 - 11.0 FL LAB HEMETOLOGY METHOD 02/05/2024 7:16 AM [facility] NRBC 0.0 <1.0 % LAB HEMETOLOGY METHOD 02/05/2024 7:16 AM [facility] NRBC Absolute 0.00 <0.10 K/mcL LAB HEMETOLOGY METHOD 02/05/2024 7:16 AM [facility] Neutrophils Relative 64.1 % LAB HEMETOLOGY METHOD 02/05/2024 7:16 AM [facility] Lymphocytes Relative 27.9 % LAB HEMETOLOGY METHOD 02/05/2024 7:16 AM [facility] Monocytes Relative 6.5 % LAB HEMETOLOGY METHOD 02/05/2024 7:16 AM [facility] Eosinophils Relative 0.7 % LAB HEMETOLOGY METHOD 02/05/2024 7:16 AM [facility] Basophils Relative 0.6 % LAB HEMETOLOGY METHOD 02/05/2024 7:16 AM [facility] Immature Granulocytes Relative 0.2 % LAB HEMETOLOGY METHOD 02/05/2024 7:16 AM [facility] Neutrophils Absolute 5.82 1.50 - 7.00 K/mcL LAB HEMETOLOGY METHOD 02/05/2024 7:16 AM [facility] Lymphocytes Absolute 2.53 1.00 - 5.00 K/mcL LAB HEMETOLOGY METHOD 02/05/2024 7:16 AM [facility] Monocytes Absolute 0.59 0.20 - 1.00 K/mcL LAB HEMETOLOGY METHOD 02/05/2024 7:16 AM [facility] Eosinophils Absolute 0.06 0.00 - 0.50 K/mcL LAB HEMETOLOGY METHOD 02/05/2024 7:16 AM [facility] Basophils Absolute 0.05 0.00 - 0.20 K/mcL LAB HEMETOLOGY METHOD 02/05/2024 7:16 AM EST [facility] Immature Granulocytes Absolute 0.02 0.00 - 0.03 K/[facility] LAB HEMETOLOGY METHOD 02/05/2024 7:16 AM [facility] Blood Venous blood specimen / Unknown Venipuncture / Unknown 02/05/2024 6:55 AM EST 02/05/2024 7:05 AM EST Kathy Nazario MD LAB BLOOD ORDERA BLES [facility] [address] [place] [address], * Respiratory virus panel molecular study (02/05/2024 6:51 AM EST) Adenovirus Detection by PCR Not Detected Not Detected LAB MICROBIOLOGY METHOD 02/05/2024 8:09 AM [facility] Influenza A PCR Not Detected Not Detected LAB MICROBIOLOGY METHOD 02/05/2024 8:09 AM [facility] Influenza B PCR Not Detected Not Detected LAB MICROBIOLOGY METHOD 02/05/2024 8:09 AM [facility] Coronavirus 229E Not Detected Not Detected LAB MICROBIOLOGY METHOD 02/05/2024 8:09 AM [facility] Coronavirus HKU1 Not Detected Not Detected LAB MICROBIOLOGY METHOD 02/05/2024 8:09 AM [facility] Coronavirus OC43 Not Detected Not Detected LAB MICROBIOLOGY METHOD 02/05/2024 8:09 AM [facility] Coronavirus NL63 Not Detected Not Detected LAB MICROBIOLOGY METHOD 02/05/2024 8:09 AM [facility] Parainfluenza Virus 1 Not Detected Not Detected LAB MICROBIOLOGY METHOD 02/05/2024 8:09 AM [facility] Parainfluenza Virus 2 Not Detected Not Detected LAB MICROBIOLOGY METHOD 02/05/2024 8:09 AM [facility] Parainfluenza Virus 3 Not Detected Not Detected LAB MICROBIOLOGY METHOD 02/05/2024 8:09 AM [facility] Parainfluenza Virus 4 Not Detected Not Detected LAB MICROBIOLOGY METHOD 02/05/2024 8:09 AM [facility] RSV PCR Not Detected Not Detected LAB MICROBIOLOGY METHOD 02/05/2024 8:09 AM [facility] Human Metapneumovirus A and B Not Detected Not Detected LAB MICROBIOLOGY METHOD 02/05/2024 8:09 AM [facility] Rhinovirus/Entero virus Not Detected Not Detected LAB MICROBIOLOGY METHOD 02/05/2024 8:09 AM [facility] Bordetella pertussis Not Detected Not Detected LAB MICROBIOLOGY METHOD 02/05/2024 8:09 AM [facility] Bordetella parapertussis Not Detected Not Detected LAB MICROBIOLOGY METHOD 02/05/2024 8:09 AM [facility] Mycoplasma pneumo by PCR Not Detected Not Detected LAB MICROBIOLOGY METHOD 02/05/2024 8:09 AM [facility] Chlamydia pneumoniae Not Detected Not Detected LAB MICROBIOLOGY METHOD 02/05/2024 8:09 AM [facility] SARS COV-2 Not Detected Not Detected LAB MICROBIOLOGY METHOD 02/05/2024 8:09 AM [facility] Swab Both anterior nares / Unknown Non-blood Collection / Unknown 02/05/2024 6:51 AM EST 02/05/2024 7:05 AM [facility] - 02/05/2024 8:09 AM EST Testing was performed using the [employer] Respiratory Pathogen PCR Assay. All results must be correlated with the clinical findings. Results should not be used as the sole basis for diagnosis. False Negative results may occur from the presence of sequence variants in the region targeted by the assay or the presence of inhibitors. Results may be affected by concurrent antiviral/antimicrobial therapy or levels of organisms that are below the limit of detection. Kathy Nazario MD LAB MICROBIOLOGY - GENERAL ORDERABLES [facility] [address] [place] [address], * ECG-Annotated (02/05/2024) Provider Onbase MD ECG ORDERABLES * (ABNORMAL) Hemoglobin A1c (11/20/2014) Pathologist [facility] Hemoglobin A1C 7.5(A) 4.0 - 6.0 % Blood Venous blood specimen / Unknown Historical Provider LAB BLOOD ORDERAB LES * Urine Albumin Creatinine Ratio (05/10/2014) Pathologist [facility] Urine Albumin Creatinine Ratio abstracted Historical Provider MD ROBERSON MAINCHERI E * (ABNORMAL) Lipid panel (05/10/2014) [facility] LDL/HDL Ratio 4 0 - 4 Triglycerides 360(A) 0 - 150 mg/dL Cholesterol 179 0 - 200 mg/dL HDL 42 40 mg/dL LDL Cholesterol 65 0 - 100 mg/dL Blood Venous blood specimen / Unknown Historical Provider LAB BLOOD ORDERAB LES * Hepatitis C Screening (10/10/2013) Pathologist [facility] Hepatitis C Screening abstracted Historical Provider MD ROBERSON MAINCHERI E from Last 3 Months or Most Recently Relevant to Health Maintenance Advance Directives * Full Code - Default (Latest Code Status on File) Date Activated Date Inactivated Comments 02/05/2024 10:52 AM 02/06/2024 2:47 PM This is o rder is used when code status has not been discussed with the patient, or code status is otherwise unknown/unconfirmed To update the patient's code status, place a code status order. Do not modify or discontinue any currently active code status orders. Care Teams Mill Turner Relationship Specialty Start Date End Date Name, MD Kiel [address] [place] [address] PCP - General Internal Medicine 08/28/15
--- OUTSIDE RECORDS SUMMARY | 2024-03-30 17:34 | XMS_ITS | Encounter Summary ---
[facility] Organization [facility] Address [address] [place] [address] Care Team Providers Care Brand Ambassador Promotional Model Name Role Phone Name, Kiel BAILEY Primary Care Provider Unavailabl e Name, Kiel BAILEY Primary Care Provider Unavailabl e Philly Vela DO Primary Care Pro vider Unavailable Name, Kiel BAILEY Primary Care Provider Unavailabl e Encounter Details Date Type Department Care Team Description 08/13/2011 Hospital Medical Records [address] [place] [address] Marcia Wan MD Social History Tobacco Use Types Packs/Day [...] on filedocumented in this encounter Care Teams Brand Ambassador Promotional Model Relationship Specialty Start Date End Date Kiel Shaffer MD PCP - General 05/26/09 04/27/15 Kiel Shaffer MD PCP - General Internal Medicine 04/28/15 05/05/15 Philly Vela DO PCP - General Internal Medicine 05/06/15 08/27/15 Kiel Shaffer MD PCP - General Internal Medicine 08/28/15 documented as of this encounter
--- OUTSIDE RECORDS SUMMARY | 2024-03-30 17:34 | XMS_ITS | Clinical Summary ---
Author Organization [facility] Address [address] [place] [address] Care Team Providers Care Ornamental Iron Worker Apprentice Name Role Phone Name, Kiel BAILEY Primary Care Provider Unavailabl e Allergies Active Allergy Reactions Severity Noted Date Comments Penicillins Swelling/Edema 06/05/2009 Medications Medication Sig Dispensed Refills Start Date End Date Status Loratadine 10 MG TABSIndications:As thma,Tobacco use disorder,Diabetes mellitus type II, uncontrolled 1 TABLET DAILY 0 Active Calcium + D (CALCIUM) 600-200 MG-UNIT TABS Take 1 Tab by mouth 2 times daily. 60 Tab 5 08/17/2010 Active Blood Glucose Monitoring Suppl (FREESTYLE LITE) ROMERO Use to test bs twice daily 1 Device 0 10/14/2011 Active ketoconazole (NIZORAL) 2 % cream Apply twice daily to feet 15 g 0 10/26/2011 Active Diclofenac Sodium (VOLTAREN) 1 % GEL Apply once a day to the affected hand 1 Tube 2 11/10/2011 Active LIDODERM 5 % APPLY 1 PATCH TOPICALLY EVERY TWELVE HOURS THEN take off FOR 12 HOUR 30 Patch 4 12/15/2011 Active FreeStyle Lancets MISC 1 Each by Does not apply route 2 times daily. 100 Each 1 05/17/2012 Active sucralfate (CARAFATE) 1 G tablet Take 1 g by mouth 4 times daily. 0 Active fluticasone 50 MCG/ACT nasal spray SPRAY TWICE IN EACH NOSTRIL daily 16 g 3 03/22/2014 Active albuterol (PROVENTIL) (2.5 MG/3ML) 0.083% nebulizer solution INHALE THE CONTENT OF 1 VIAL VIA nebulizer EVERY 6 HOURS NEEDED FOR WHEEZING 180 mL 5 06/03/2014 Active SURE COMFORT LANCETS 30G Misc USE TO TEST FINGER STICK BLOOD SUGAR TWICE DAILY 100 Each 5 09/11/2014 Active aspirin 81 MG tabletIndications: Other chest pain Take 1 Tab by mouth daily. 90 Tab 3 11/27/2014 Active Misc. Devices (COMMODE BEDSIDE) Misc 1 Device by Does not apply route as needed (voiding/bm). 1 Each 0 12/10/2014 Active sertraline (ZOLOFT) 50 MG tablet Take 1 Tab by mouth daily. 30 Tab 3 12/10/2014 Active furosemide (LASIX) 20 MG tablet Take 1 Tab by mouth daily. 30 Tab 5 12/30/2014 Active ALBUTEROL SULFATE (PROAIR HFA) 108 (90 BASE) MCG/ACT Aero Soln Inhale 2 Puffs into the lungs every 4 hours as needed for Cough or Wheezing. 8.5 g 4 02/28/2015 Active fluticasone-salmet zack (ADVAIR HFA) 115-21 MCG/ACT inhaler Inhale 2 Puffs into the lungs 2 times daily. 1 Inhaler 5 02/28/2015 Active hydrocodone-acetam inophen (NORCO) 5-325 MG per tablet Take 1 tablet by mouth every 6 hours as needed. 0 Active metoprolol (TOPROL XL) 50 MG 24 hr tabletIndications: Other chest pain Take 0.5 Tabs by mouth daily. 15 Tab 0 06/17/2015 Active montelukast (SINGULAIR) 10 MG tablet TAKE ONE TABLET BY MOUTH AT BEDTIME 30 Tab 3 06/23/2015 Active Alcohol Swabs (ALCOHOL PADS) 70 % Pads USE TO TEST FINGER STICK BLOOD SUGAR TWICE DAILY 100 Each 3 06/23/2015 Active simvastatin (ZOCOR) 20 MG tablet TAKE ONE TABLET BY MOUTH AT BEDTIME 30 Tab 3 06/23/2015 Active Insulin Lispro, Human, (HUMALOG KWIKPEN) 100 UNIT/ML Solution Pen-injector INJECT 8 UNITS SUBCUTANEOUSLY BEFORE MEALS IN THE MORNING AND INJECT 10 UNITS BEFORE MEALS afternoon 5 Device 3 06/23/2015 Active ULTICARE SHORT PEN NEEDLES 31G X 8 MM Misc USE FOUR TIMES DAILY TO INJECT insulin WITH A MEAL AND AT BEDTIME 120 Each 3 06/23/2015 Active FREESTYLE LITE strip USE TO TEST FINGER STICK BLOOD SUGAR TWICE DAILY DIRECTED 100 Each 3 06/23/2015 Active lisinopril (PRINIVIL,ZESTRIL) 5 MG tablet TAKE ONE TABLET BY MOUTH DAILY 30 Tab 1 07/24/2015 Active Insulin Glargine (LANTUS SOLOSTAR) 100 UNIT/ML Solution Pen-injector INJECT 50 UNITS SUBCUTANEOUSLY AT BEDTIME DIRECTED 15 mL 2 07/24/2015 Active gabapentin (NEURONTIN) 600 MG tablet TAKE ONE TABLET BY MOUTH THREE TIMES DAILY 90 Tab 2 07/24/2015 Active mirtazapine (REMERON) 15 MG tablet TAKE ONE TABLET BY MOUTH AT BEDTIME 30 Tab 2 08/13/2015 Active omeprazole (PRILOSEC) 40 MG capsule TAKE ONE CAPSULE BY MOUTH daily 30 Cap 4 08/13/2015 Active metoprolol (TOPROL-XL) 25 MG 24 hr tablet TAKE ONE TABLET BY MOUTH daily 30 Tab 1 08/27/2015 Active isosorbide mononitrate (IMDUR) 30 MG 24 hr tablet TAKE ONE TABLET BY MOUTH daily 30 Tab 1 08/27/2015 Active lidocaine (LIDODERM) 5 % Place 1 Patch onto the skin every 24 hours for 112 days. Apply for no more than 12 hours in any 24 hour period. 28 Patch 3 10/27/2023 Active Active Problems Patient Care Coordination No te Formatting of this note is d ifferent from the original. Checking Your Blood Sugars Please check your blood sugars every day. Please check your sugars at the following times of day: before breakfast, before lunch and before dinner Your Blood Sugar Goals Pre Meal: 90-130 2 hours after meals: 110-160 Bedtime: 110-150 Use the Results ?? Bring your glucometer to every appointment ?? Write your fingerstick blood sugars down on a log sheet or record book. Bring them to your appointment ?? Look for patterns in the numbers. The results help you and your provider make decisions about your diabetes treatment plan. Your Results and your Goals Your Result / Date of Completion Your Goal / How Often to Assess Component Value Date HGBA1C 8.0 08/19/2011 Less than 7%--- 2-4 times per year BP Readings from Last 1 Encounters: 08/30/11 110/72 Less than 130/80--- once per year Component Value Date LDL 111 08/19/2011 LDL less than 100--- once per year Component Value Date MALBUR 3.0 07/06/2010 Less than 30--- once per year Wt Readings from Last 1 Encounters: 08/30/11 272 lb 9.6 oz (123.651 kg) Your goal weight by next visit: 265 --- reassess 2-4 times a year Health Maintenance Due Topic Date Due ? ? Diabetes: Annual Care Plan 08/22/1983 ? ? Adult Immunization: Tetanus And Diptheria (Td) 1984 ? ? Mammogram Age 40 To 49 2005 ? ? Pelvic Exam Annually 06/17/2010 ? ? Diabetes: Annual Eye Exam 06/19/2011 ? ? Spirometry (Breathing Capacity Test) For Copd 06/20/2011 ? ? Diabetes: Annual Urine Protein Test (Microalbumin) 07/07/2011 Your Action Plan Check blood glucose as directed and write down all results. Contact me if you experience any barriers to care such as inability to purchase your medication, difficulty getting to your appointments or difficulty understanding your care plan When to Call your Healthcare Provider If your blood sugar falls below 70 and you do not know why or you become unconscious If you are sick and unable to take liquids because or nausea or vomiting If you have a fever over 101 If your blood sugar is 300 or higher on greater than 3 separate occasions during the same week If you are just unsure what to do Educational Resources [place] Diabetes Association (www.diabetes.org) Centers for Disease Control and Prevention (www.cdc.gov/diabetes) This care plan was created in collaboration with Sarita Puga on 08/30/2011 Problem Noted Date Abnormal nuclear stress test 11/06/2014 Rib fracture 12/24/2013 Overview: Non displaced, probable froacture on the right ninth and tenth Abdominal pain 08/15/2013 Lipoma of abdominal wall 11/02/2011 Visual field defect 03/29/2011 DRE (obstructive sleep apnea) 01/19/2011 Insomnia 01/07/2011 Cocaine abuse, episodic use 06/17/2010 Low back pain radiating to left leg 09/21 Overview: The patient follows with [facility] and is treated with injections to the LS. Asthmatic bronchitis , chronic 0 Overview: Severe and worse in the spring. Last hospitalazion in May and 3 ER visits Hospital 08/02 Tobacco use disorder 06/05/2009 Hypertriglyceridemia 06/05/2009 Diabetes mellitus type II, uncontrolled 06/05/2009 Morbid obesity 06/05/2009 Overview: BMI 48.37 on 11/15/13 Depression 06/05/2009 Immunizations Name Administration Dates Next Due Influenza (> 6 Months) 12/10/2014,2012,10/26/2011,11/03 Pneumoccoccal(Adult) Polysac charide PPSV23 10/03/2013 Tdap 10/26/2011 Family History Medical History Relation Name Comments Blindness Brother 3 CA Breast Maternal Grandmother Cataract Maternal Grandmother Blindness Mother Glaucoma Negative Hx Macular Degeneration Negative Hx Strabismus Negative Hx Relation Name Status Comments Brother 1 VA Brother 2 Alive 6 brothers are diabetic Brother 3 Daughter 1 Alive Daughter 2 Alive Father DM Maternal Grandmother Mother DM Sister Alive 3 sisters are d iabetic Son 1 Alive Son 2 Alive Son 3 Alive Social History Tobacco Use Types Packs/Day Years Used Date Smoking Tobacco: Some Days Cigarettes 0.5 15 Last attempted to quit: 08/22/2014 Smokeless Tobacco: Never Tobacco Cessation:Counseling Given: No Comments:approx 7 daily Alcohol Use Standard Drinks/Week Comments No 0 (1 standard drink = 0.6 oz pur e alcohol) Sex Assigned at Date Recorded Not on file Last Filed Vital Signs Vital Sign Reading Time Taken Comments Blood Pressure 109/71 05/06/2015 10:10 AM EDT Pulse 91 05/06/2015 10:10 AM EDT Temperature 36.6 ??C (97.9 ??F) 05/06/2015 10:10 AM E DT Respiratory Rate 20 05/06/2015 10:10 AM EDT Oxygen Saturation 96% 02/28/2015 10:31 AM EST Inhaled Oxygen Concentration - - Weight 124.3 kg (274 lb) 10/27/2023 8:01 AM EDT Height 160 cm (5' 3 ) 05/06/2015 10:10 AM EDT Body Mass Index 48.54 05/06/2015 10:10 AM EDT Plan of Treatment Health Maintenance Due Date Last Done Comments Covid-19 Vaccine (#1) 02/21/1966 SPIROMETRY (BREATHING CAPACI TY TEST) FOR COPD 10/27/2013 10/28/2011, 06/19/2009 DIABETES: ANNUAL FOOT EXAM 10/03/201410/03, 11/19/2010, 11/19/2010 DIABETES: BLOOD SUGAR CONTRO L TEST (HGBA1C) 02/19/2015 11/20/2014, 08/29/2014, 05/10/2014, Additional history exists DIABETES/HEART DISEASE: NESHA AL CHOLESTEROL (LDL) 05/11/2015 05/10/2014, 10/10/2013, 05/21/2013, Additional history exists DIABETES: ANNUAL URINE PROTE IN TEST (MICROALBUMIN) 05/11/2015 05/10/2014, 10/10/2013, 05/21/2013, Additional history exists DIABETES: ANNUAL EYE EXAM 05/30/20152014, 05/29/2013, 04/07/2012, Additional history exists MAMMOGRAM 07/23/2015 07/22/2014, 11/23/2011 COLON CANCER SCREENING 08/22/2015 SHINGLES VACCINE (1 of 2) 08/22/2015 BASELINE HEALTH EXAM 40-64 10/11/201510/10, 10/10/2013, 10/03/2013 TOBACCO CHECK/ADVISE 05/30/2016 05/30/2014 CERVICAL CANCER SCREENING 10/03/20162013 (Exception), 06/17/2009 (Completed) DTAP/TDAP/TD (2 - Td or Tdap) 10/25/2021 10/26/2011 INFLUENZA (#1) 2023 12/10/2014, 10/22, 10/26/2011, Additional history exists BMI CHECK/ADVISE 02/22/2024 12/30/2014, , 11/27/2014, Additional history exists DEPRESSION SCREENING/FOLLOWUP 02/22/2024, 01/24/2014, 07/28/2012, Additional history exists SOCIAL NEEDS SCREENING 02/22/2024 PNEUMOCOCCAL VACCINE FOR HIG H RISK PATIENTS (#2) 2030 02/05/2018, 10/03/2013 HEPATITIS C SCREENING Completed 10/10/2013 Care Teams Ornamental Iron Worker Apprentice Relationship Specialty Start Date End Date Name, MD Kiel PCP - General Internal Medicine 08/28/15
--- OUTSIDE RECORDS SUMMARY | 2024-03-30 17:34 | XMS_ITS | Encounter Summary ---
Author Organization [employer] Address [address] [place] [address] Care Team Providers Care Industrial Controller Name Role Phone Name, Kiel BAILEY Primary Care Provider [phone] Katlyn Rodriguez PharmD Unavailable [phone] Encounter Details Date Type Department Care Team ([facility] Contact Info) Description 03/08/[address] [facility] MEDICINE [address] [place], [place] [phone] Name, MD Kiel [address] [place] [address] Social History Tobacco Use Types Packs/Day Years [...] 05/07/2024 10:30 AM EDT Medication Management [facility] MEDICINE [address] [place] [address] Puia, Katlyn, PharmD [address] [place] [address] documented as of this encounter Goals Goal [...] documented as of this encounter Care Teams Industrial Controller Relationship Specialty Start Date End Date Name, MD Kiel [address] [place] [address] PCP - General Family Medicine 07/15/15 Katlyn Rodriguez, Bin [address] [place] [address] Pharmacist Internal Medicine 10/08/22 Marta Ovalle Neurology NurseProduction Support Consultant 05/25/23 documented as of this encounter
--- OUTSIDE RECORDS SUMMARY | 2024-03-30 17:34 | XMS_ITS | Encounter Summary ---
Author Organization [facility] Address [address] [place] [address] 7t [place] [address] Care Team Providers Care Voice Intercept Technician Name Role Phone Name, Kiel BAILEY Primary Care Provider [phone] Katlyn Rodriguez PharmD Unavailable [phone] Encounter Details Date Type Department Care Team ([facility] Contact Info) Description 07/01/2022 Abstract [facility] MEDICINE [address] [place] [address] Name, MD Kiel [address] [place] [phone] Social History Tobacco Use Types Packs/Day Years [...] Upcoming Encounters Date Type Department Care Team ([facility] Contact Info) Description 05/07/2024 10:30 AM EDT Medication Management [facility] MEDICINE [address] [place] [phone] Katlyn Rodriguez PharmD [address] [place] [address] documented as of this encounter Procedures Procedure Name Priority Date/Time Associated Diagnosis Comments COLONOSCOPY Routine 07/01/2022 4:37 PM EDT documented in this encounter Results * Colonoscopy (07/01/2022 4:37 PM EDT) Colonoscopy Normal Normal Narrative Emely Devine - 07/01/2022 4:37 PM EDT Recommended 5 year follow up ([facility] us Historical Provider HEALTH MAINTENANCE Final Result documented in this encounter Visit Diagnoses Not on filedocumented in this encounter Care Teams Voice Intercept Technician Relationship Specialty Start Date End Date Name, MD Kiel [address] [place] [address] PCP - General Family Medicine 07/15/15 Katlyn Rodriguez, PharmD [address] [place] [address] Pharmacist Internal Medicine 10/08/22 Marta Ovalle Public Service OfficerGuest Service Agent 05/25/23 documented as of this encounter
--- OUTSIDE RECORDS SUMMARY | 2024-03-30 17:34 | XMS_ITS | Encounter Summary ---
Author Organization [employer] [facility] Address [address] [place] [address] 7[address] [place] [address] Care Team Providers Care Jet Piercer Operator Name Role Phone Name, Kiel BAILEY Primary Care Provider [phone] Katlyn Rodriguez PharmD Unavailable [phone] Encounter Details Date Type Department Care Team ([facility] Contact Info) Description 07/01/2022 Abstract [facility] MEDICINE [address] [place] [phone] Name, MD Kiel [address] [place] [phone] Social History Tobacco Use Types Packs/Day Years [...] Upcoming Encounters Date Type Department Care Team ([facility] Contact Info) Description 05/07/2024 10:30 AM EDT Medication Management [facility] MEDICINE [address] [place] [phone] Katlyn Rodriguez PharmD [address] [place] [address] documented as of this encounter Visit Diagnoses Not on filedocumented in this encounter Care Teams Jet Piercer Operator Relationship Specialty Start Date End Date Name, MD Kiel [address] [place] [address] PCP - General Family Medicine 07/15/15 Katlyn Rodriguez, PharmD [address] [place] [address] Pharmacist Internal Medicine 10/08/22 Marta Ovalle Lap Cutter Truer OperatorMolder Bench 05/25/23 documented as of this encounter
--- OUTSIDE RECORDS SUMMARY | 2024-03-30 17:34 | XMS_ITS | Encounter Summary ---
Author Organization [facility] Address [address] [place] [address] Care Team Providers Care Director Post Name Role Phone Name, Kiel BAILEY Primary Care Provider Unavailabl e Name, Kiel BAILEY Primary Care Provider Unavailabl e Philly Vela DO Primary Care Pro vider Unavailable Name, Kiel BAILEY Primary Care Provider Unavailabl e Encounter Details Date Type Department Care Team Description 03/30/2011 Volunteer Assistant Report Medical Records [address] [place] [address] Mohini Ellis NP Social History Tobacco Use [...] on filedocumented in this encounter Care Teams Director Post Relationship Specialty Start Date End Date Kiel Shaffer MD PCP - General 05/26/09 04/27/15 Kiel Shaffer MD PCP - General Internal Medicine 04/28/15 05/05/15 Philly Vela DO PCP - General Internal Medicine 05/06/15 08/27/15 Kiel Shaffer MD PCP - General Internal Medicine 08/28/15 documented as of this encounter
--- OUTSIDE RECORDS SUMMARY | 2024-03-30 17:34 | XMS_ITS | Encounter Summary ---
Author Organization [employer] Address [address] [place] [address] [address] [place] [address] Care Team Providers Care Sales Broker Name Role Phone Name, Kiel BAILEY Primary Care Provider [phone] Katlyn Rodriguez PharmD Unavailable [phone] Reason for Visit * Reason Comments Med Refill Encounter Details Date Type Department Care Team ([facility] Contact Info) Description 02/10/2022 Refill [facility] PEDS [address] [place], [place] [phone] Name, MD Kiel [address] [place] [address] Chronic pain syndrome (Primary Dx) Social History Tobacco Use Types [...] Upcoming Encounters Date Type Department Care Team ([facility] Contact Info) Description 05/07/2024 10:30 AM EDT Medication Management [facility] MEDICINE [address] [place] [address] Katlyn Rodriguez PharmD [address] [place] [address] documented as of this encounter Visit Diagnoses Diagnosis Chronic pain syndrome- Primary documented in this encounter Care Teams Sales Broker Relationship Specialty Start Date End Date Name, MD Kiel [address] [place], [place] [phone] PCP - General Family Medicine 07/15/15 Katlyn Rodriguez, PharmD [address] [place] [address] Pharmacist Internal Medicine 10/08/22 Marta Ovalle Jig BorerBiometrics Experimentalist 05/25/23 documented as of this encounter
--- OUTSIDE RECORDS SUMMARY | 2024-03-30 17:34 | XMS_ITS | Encounter Summary ---
Author Organization [facility] Address [address] [place] [address] [address] [place] [address] Care Team Providers Care Deployment Engineer Name Role Phone Name, Kiel BAILEY Primary Care Provider [phone] Katlyn Rodriguez PharmD Unavailable Reason for Visit * Reason Comments Med Refill Encounter Details Date Type Department Care Team ([facility] Contact Info) Description 07/16/2022 Refill [facility] MEDICINE [address] [place] [address] Name, MD Kiel [address] [place] [address] Chronic pain syndrome Social History Tobacco Use Types Packs/Day Years Used Date Smoking Tobacco: Former Cigarettes Passive Smoke Exposure: Never Smokeless Tobacco: [...] suspected to have Coronavirus/COVID-19? No / Unsure 07/14/2022 2:29 PM EDT documented as of this encounter Plan of Treatment Upcoming Encounters Date Type Department Care Team ([facility] st Contact Info) Description 05/07/2024 10:30 AM EDT Medication Management [facility] MEDICINE [address] [place] [address] Katlyn Rodriguez PharmD [address] [place] [address] documented as of this encounter Visit Diagnoses Diagnosis Chronic pain syndrome documented in this encounter Additional Health Concerns Assessment Noted Time PHQ-9 Depression Total Score: 7 07/15/19 23 2:39 PM EDT documented as of this encounter Care Teams Deployment Engineer Relationship Specialty Start Date End Date Name, MD Kiel [address] [place] [address] PCP - General Family Medicine 07/15/15 Katlyn Rodriguez PharmD [address] [place] [address] Pharmacist Internal Medicine 10/08/[address] Fre[employer] ConductorHospice Nurse Practitioner 05/25/23 documented as of this encounter
--- OUTSIDE RECORDS SUMMARY | 2024-03-30 17:34 | XMS_ITS | Encounter Summary ---
Author Organization [facility] Address [address] [place] [address] Care Team Providers Care Expander Name Role Phone Name, Kiel BAILEY Primary Care Provider Unavailabl e Name, Kiel BAILEY Primary Care Provider Unavailabl e Philly Vela DO Primary Care Pro vider Unavailable Name, Kiel BAILEY Primary Care Provider Unavailabl e Reason for Visit * Reason Onset Date Comments Follow-up Appt Unavailable 08/19/2011 Encounter Details Date Type Department Care Team Description 08/19/2011 Telephone Adult Medicine [address] [address] Name, MD Kiel Follow-up Appt Unavailable Social History Tobacco Use Types Packs/Day Years Used Date Smoking Tobacco: Every Day Cigarettes 0.3 15 Smokeless Tobacco: Never Comments:resumed smoking.6 c ig a day Alcohol Use Standard Drinks/Week Comments No 0 (1 standard drink = 0.6 oz pur e alcohol) Sex Assigned at Date Recorded Not on file documented as of this encounter Miscellaneous Notes * Telephone Encounter - Abi Zavala M.A. - 08/20/2011 8:16 AM EDT Notes given to Joann * Telephone Encounter - Joann King R.N. - 08/19/2011 3:16 PM EDT Pt booked for 08/29 at 2;[address] grajeda, dr santiago is away , pt accepted this appointment and understands it is not with dr santiago * Telephone Encounter - Halima Heard - 08/19/2011 2:38 PM EDT Patient called asking for appointment with Dr. Santiago. Told her the nurse would call her back. * Telephone Encounter - Shellie Wall - 08/19/2011 1:14 PM EDT Symptoms patient is presenting: [facility]-08[facility]17 For sob and lung infection/she would like to see dr santiago only How long has patient had these symptoms?: admitted 1week PCP: Kiel Santiago MD Payor: [facility] [employer] F[facility] Plan: FFS HMO $0 [place] [id number] Product Type: MEDICAID RISK documented in this encounter Plan of Treatment Not on file documented as of this encounter Visit Diagnoses Not on filedocumented in this encounter Care Teams Expander Relationship Specialty Start Date End Date Kiel Santiago MD PCP - General 05/26/09 04/27/15 Kiel Santiago MD PCP - General Internal Medicine 04/28/15 05/05/15 Philly Vela DO PCP - General Internal Medicine 05/06/15 08/27/15 Kiel Santiago MD PCP - General Internal Medicine 08/28/15 documented as of this encounter
--- OUTSIDE RECORDS SUMMARY | 2024-03-30 17:34 | XMS_ITS | Encounter Summary ---
Author Organization [facility] Address [address] [place] [address] Care Team Providers Care Shuttle Hand Name Role Phone NameKiel MD Primary Care Provider Unavailabl e Encounter Details Date Type Department Care Team Description 01/13/2021 Orders Only Cardio PVCA Diag Testing [address] [place] [address] [place] [address] Doreen Villatoro PA Chest pain, unspecified type (Primary Dx) Social History Tobacco Use Types Packs/Day Years Used Date Smoking Tobacco: Some Days Cigarettes 0.5 15 Last attempted to quit: 08/22/2014 Smokeless Tobacco: Never Comments:approx 7 daily Alcohol Use Standard Drinks/Week Comments No 0 (1 standard drink = 0.6 oz pur e alcohol) Sex Assigned at Date Recorded Not on file documented as of this encounter Plan of Treatment Scheduled Orders Name Type Priority Associated Diagnoses Orde r Schedule CARDIOVASCULAR STRESS TEST Cardiology Routine Chest pain, unspecified type Expected: 01/13/2021, Expires: 01/13/2022 documented as of this encounter Visit Diagnoses Diagnosis Chest pain, unspecified type- Primary documented in this encounter Care Teams Shuttle Hand Relationship Specialty Start Date End Date Name, MD Kiel PCP - General Internal Medicine 08/28/15 documented as of this encounter
--- OUTSIDE RECORDS SUMMARY | 2024-03-30 17:34 | XMS_ITS | Encounter Summary ---
Author Organization [employer] Address [address] [place] [address] Care Team Providers Care Product Technician Name Role Phone Name, Kiel BAILEY Primary Care Provider [phone] Katlyn Rodriguez PharmD Unavailable Encounter Details Date Type Department Care Team ([facility] st Contact Info) Description 02/20/2024 Telephone [facility]EDS [address] [place], [place] [phone] Name, MD Kiel [address] [place] [address] Social History Tobacco Use Types Packs/Day Years [...] Description 05/07/2024 10:30 AM EDT Medication Management [facility] MEDICINE [address] [place] [address] Puia, Katlyn, PharmD [address] [place] [address] documented as of this encounter Goals Goal [...] documented as of this encounter Care Teams Product Technician Relationship Specialty Start Date End Date Name, MD Kiel [address] [place] [address] PCP - General Family Medicine 07/15/15 Katlyn Rodriguez, Bin [address] [place] [address] Pharmacist Internal Medicine 10/08/22 Marta Ovalle Water Meter MechanicLarge Animal Veterinarian 05/25/23 documented as of this encounter
--- OUTSIDE RECORDS SUMMARY | 2024-03-30 17:35 | XMS_ITS | Encounter Summary ---
Author Organization [facility] Address [address] [place] [address] Care Team Providers Care Home Care Music Therapist Name Role Phone Name, Kiel BAILEY Primary Care Provider Unavailabl e Name, Kiel BAILEY Primary Care Provider Unavailabl e Philly Vela DO Primary Care Pro vider Unavailable Name, Kiel BAILEY Primary Care Provider Unavailabl e Encounter Details Date Type Department Care Team Description 02/24/2013 Hospital Medical Records [address] [place] [address] Desilets, Shamir Mims MD Social History Tobacco Use Types Packs/Day [...] on filedocumented in this encounter Care Teams Home Care Music Therapist Relationship Specialty Start Date End Date Kiel Shaffer MD PCP - General 05/26/09 04/27/15 Kiel Shaffer MD PCP - General Internal Medicine 04/28/15 05/05/15 Philly Vela DO PCP - General Internal Medicine 05/06/15 08/27/15 Kiel Shaffer MD PCP - General Internal Medicine 08/28/15 documented as of this encounter
--- OUTSIDE RECORDS SUMMARY | 2024-03-30 17:35 | XMS_ITS | Encounter Summary ---
Author Organization [employer] Address [address] 7t [place] [address] Care Team Providers Care Traditional Maori Health Practitioner Name Role Phone Name, Kiel BAILEY Primary Care Provider [phone] Katlyn Rodriguez PharmD Unavailable [phone] Encounter Details Date Type Department Care Team ([facility] st Contact Info) Description 03/23/2024 Refill [facility] MEDICINE [address] [place], [place] [phone] Name, MD Kiel [address] [place] [address] Essential hypertension Social History Tobacco Use Types Packs/Day Years [...] Description 05/07/2024 10:30 AM EDT Medication Management [facility] MEDICINE [address] [place] [address] Puia, Katlyn, PharmD [address] [place] [address] documented as of this encounter Goals Goal [...] as of this encounter Visit Diagnoses Diagnosis Essential hypertension Unspecified essential hypertension documented in this encounter Additional Health Concerns Assessment Noted Time PHQ-9 Depression Total Score: 4 09/02/19 24 10:30 AM EDT documented as of this encounter Care Teams Traditional Maori Health Practitioner Relationship Specialty Start Date End Date Name, MD Kiel [address] [place] [address] PCP - General Family Medicine 07/15/15 Katlyn Rodriguez, Bin [address] [place] [phone] Pharmacist Internal Medicine 10/08/22 Marta Ovalle Senior Account ExecutiveRn Long Term Care 05/25/23 documented as of this encounter
--- OUTSIDE RECORDS SUMMARY | 2024-03-30 17:35 | XMS_ITS | Encounter Summary ---
Author Organization [facility] Address [address] [place] [address] Care Team Providers Care Developmental Education Instructor Name Role Phone Name, Kiel BAILEY Primary Care Provider Unavailabl e Name, Kiel BAILEY Primary Care Provider Unavailabl e Philly Vela DO Primary Care Pro vider Unavailable Name, Kiel BAILEY Primary Care Provider Unavailabl e Encounter Details Date Type Department Care Team Description 11/20/2010 Cert Occupational Therapy Asst Report Medical Records [address] [place] [address] Shon Blanca Social History Tobacco Use Types Packs/Day Years [...] on filedocumented in this encounter Care Teams Developmental Education Instructor Relationship Specialty Start Date End Date Deena, MD Kiel PCP - General 05/26/09 04/27/15 Kiel Shaffer MD PCP - General Internal Medicine 04/28/15 05/05/15 Philly Vela DO PCP - General Internal Medicine 05/06/15 08/27/15 Kiel Shaffer MD PCP - General Internal Medicine 08/28/15 documented as of this encounter
--- OUTSIDE RECORDS SUMMARY | 2024-03-30 17:35 | XMS_ITS | Encounter Summary ---
Author Organization [facility] Address [address] [place] [address] Care Team Providers Care Supervisor Pole Yard Name Role Phone Name, Kiel BAILEY Primary Care Provider Unavailabl e Name, Kiel BAILEY Primary Care Provider Unavailabl e Philly Vela DO Primary Care Pro vider Unavailable Name, Kiel BAILEY Primary Care Provider Unavailabl e Encounter Details Date Type Department Care Team Description 08/13/2010 Insurance Policy Clerk Report Medical Records [address] [place] [address] Shon Blanca Social History Tobacco Use Types [...] on filedocumented in this encounter Care Teams Supervisor Pole Yard Relationship Specialty Start Date End Date Deena, MD Kiel PCP - General 05/26/09 04/27/15 Kiel Shaffer MD PCP - General Internal Medicine 04/28/15 05/05/15 Philly Vela DO PCP - General Internal Medicine 05/06/15 08/27/15 Kiel Shaffer MD PCP - General Internal Medicine 08/28/15 documented as of this encounter
--- OUTSIDE RECORDS SUMMARY | 2024-03-30 17:35 | XMS_ITS | Encounter Summary ---
Author Organization [employer] Address [address] [facility] 7t [place] [address] Care Team Providers Care Spout Tender Name Role Phone Name, Kiel BAILEY Primary Care Provider [phone] Katlyn Rodriguez PharmD Unavailable [phone] Encounter Details Date Type Department Care Team (Latest Contact Info) Description 03/30/2024 Travel Social History Tobacco Use Types Packs/Day Years [...] Description 05/07/2024 10:30 AM EDT Medication Management [facility] MEDICINE [address] [place], [place] [phone] Puia, Katlyn, PharmD [address] [place] [address] documented as of this encounter Goals Goal [...] documented as of this encounter Care Teams Spout Tender Relationship Specialty Start Date End Date Name, MD Kiel [address] [place] [address] [phone] PCP - General Family Medicine 07/15/15 Puia, Katlyn, PharmD [address] [place] [address] [phone] Pharmacist Internal Medicine 10/08/22 Marta Ovalle Contract OfficerCanine Service Instructor Trainer 05/25/23 documented as of this encounter
--- OUTSIDE RECORDS SUMMARY | 2024-03-30 17:35 | XMS_ITS | Encounter Summary ---
Author Organization [facility] Address [address] [place] [address] Care Team Providers Care Pipe And Test Supervisor Name Role Phone Name, Kiel BAILEY Primary Care Provider Unavailabl e Name, Kiel BAILEY Primary Care Provider Unavailabl e Philly Vela DO Primary Care Pro vider Unavailable Name, Kiel BAILEY Primary Care Provider Unavailabl e Encounter Details Date Type Department Care Team Description 07/09/2010 Pit Furnace Melter Report Medical Records [address] [place] [address] Shon Blanca Social History Tobacco Use Types Packs/Day Years Used Date Smoking Tobacco: Every Day Cigarettes 0.3 15 Last attempted to quit: 04/19/2010 Smokeless Tobacco: Never Alcohol Use Standard Drinks/Week Comments No 0 (1 standard drink = 0.6 oz pur e alcohol) Sex Assigned at Date Recorded Not on file documented as of this encounter Plan of Treatment Not on file documented as of this encounter Visit Diagnoses Not on filedocumented in this encounter Care Teams Pipe And Test Supervisor Relationship Specialty Start Date End Date Kiel Shaffer MD PCP - General 05/26/09 04/27/15 Kiel Shaffer MD PCP - General Internal Medicine 04/28/15 05/05/15 Philly Vela DO PCP - General Internal Medicine 05/06/15 08/27/15 Kiel Shaffer MD PCP - General Internal Medicine 08/28/15 documented as of this encounter
--- OUTSIDE RECORDS SUMMARY | 2024-03-30 17:35 | XMS_ITS | Encounter Summary ---
Author Organization [facility] Address [address] [place] [address] Care Team Providers Care Engineering Geologist Name Role Phone Name, Kiel BAILEY Primary Care Provider Unavailabl e Name, Kiel BAILEY Primary Care Provider Unavailabl e Philly Vela DO Primary Care Pro vider Unavailable Name, Kiel BAILEY Primary Care Provider Unavailabl e Encounter Details Date Type Department Care Team Description 09/02/2010 Environmental Service Aide Report Medical Records [address] [place] [address] Shon Blanca Social History Tobacco Use Types [...] filedocumented in this encounter Care Teams Engineering Geologist Relationship Specialty Start Date End Date Deena, MD Kiel PCP - General 05/26/09 04/27/15 Kiel Shaffer MD PCP - General Internal Medicine 04/28/15 05/05/15 Philly Vela DO PCP - General Internal Medicine 05/06/15 08/27/15 Kiel Shaffer MD PCP - General Internal Medicine 08/28/15 documented as of this encounter
--- OUTSIDE RECORDS SUMMARY | 2024-03-30 17:35 | XMS_ITS | Encounter Summary ---
Author Organization [employer] Address [address] [facility] 7t [place] [address] Care Team Providers Care Signals Intelligence Analyst Name Role Phone Name, Kiel BAILEY Primary Care Provider [phone] Katlyn Rodriguez PharmD Unavailable [phone] Reason for Visit * Reason Onset Date Comments Durable Medical Equipment 01/24/2023 Encounter Details Date Type Department Care Team ([facility] st Contact Info) Description 01/24/2023 Telephone [facility] MEDICINE [address] [place] [address] Name, MD Kiel [address] [place] [address] Durable Medical Equipment Social History Tobacco Use Types Packs/Day Years [...] encounter Miscellaneous Notes * Telephone Encounter - Yoon Bernal - 01/24/2023 2:19 PM EST Tc from pt requesting a script for bed pads to be sent to [facility]. Any questions, contact pt at [phone] documented in this encounter Plan of Treatment Upcoming Encounters Date Type Department Care Team (Late st Contact Info) Description 05/07/2024 10:30 AM EDT Medication Management [facility] MEDICINE [address] [place] [address] Puia, Katlyn, PharmD [address] [place] [address] documented as of this encounter Goals Goal [...] documented as of this encounter Care Teams Signals Intelligence Analyst Relationship Specialty Start Date End Date Name, MD Kiel [address] [place] [address] PCP - General Family Medicine 07/15/15 Katlyn Rodriguez PharmD [address] [place] [address] Pharmacist Internal Medicine 10/08/22 Marta Ovalle Lead Nuclear Medicine TechnologistMess Attendant Crew 05/25/23 documented as of this encounter
--- OUTSIDE RECORDS SUMMARY | 2024-03-30 17:35 | XMS_ITS | Encounter Summary ---
Author Organization [facility] Address [address] [facility] 7t [place] [address] Care Team Providers Care Fiber Locking Supervisor Name Role Phone Name, Kiel BAILEY Primary Care Provider [phone] Katlyn Rodriguez PharmD Unavailable [phone] Encounter Details Date Type Department Care Team ([facility] Contact Info) Description 10/29/2022 Abstract [facility] MEDICINE [address] [place] [address] Name, MD Kiel [address] [place] [address] Social History Tobacco Use Types Packs/Day Years [...] Upcoming Encounters Date Type Department Care Team ([facility] Contact Info) Description 05/07/2024 10:30 AM EDT Medication Management [facility] MEDICINE [address] [place] [address] [phone] Katlyn Rodriguez, PharmD [address] [place], [place] [phone] documented as of this encounter Goals Goal Patient Goal Type Associated Problems Recent Progress Patient-Stated? Author Hemoglobin A1c < 7 Result Component 7.5( 5 10:50 AM EST) No Katlyn Rodriguez, PharmSusan Record your blood sugar as directed Result Component No Katlyn Rodriguez PharmD documented as of this encounter Procedures Procedure Name Priority Date/Time Associated Diagnosis Comments DIABETES EYE EXAM Routine 05/26/2022 documented in this encounter Results * Diabetes Eye Exam (05/26/2022) Eye Exam Normal Normal Kiel Shaffer MD HEALTH MAINTENANCE Final Result documented in this encounter Visit Diagnoses Not on filedocumented in this encounter Additional Health Concerns Assessment Noted Time PHQ-9 Depression Total Score: 7 07/15/19 23 2:39 PM EDT documented as of this encounter Care Teams Fiber Locking Supervisor Relationship Specialty Start Date End Date Name, MD Kiel [address] [place] [address] PCP - General Family Medicine 07/15/15 Katlyn Rodriguez PharmD [address] [place] [address] Pharmacist Internal Medicine 10/08/22 Marta Ovalle Historic Clothing And Costume MakerDye Penetrant Testing Technician 05/25/23 documented as of this encounter
--- OUTSIDE RECORDS SUMMARY | 2024-03-30 17:35 | XMS_ITS | Encounter Summary ---
Author Organization [employer] Address [address] [facility] 7t [place] [address] Care Team Providers Care Certified Anesthesiologist Assistant Name Role Phone Name, Kiel BAILEY Primary Care Provider [phone] Katlyn Rodriguez PharmD Unavailable [phone] Reason for Visit * Reason Onset Date Comments Durable Medical Equipment 12/06/2022 Encounter Details Date Type Department Care Team ([facility] st Contact Info) Description 12/06/2022 Telephone [facility] MEDICINE [address] [place] [address] Name, MD Kiel [address] [place] [address] Durable Medical Equipment Social History Tobacco Use [...] encounter Miscellaneous Notes * Telephone Encounter - Gita Rosado - 12/09/2022 10:03 AM EDT DME DONE. * Telephone Encounter - Yoon Bernal - 12/07/2022 1:29 PM EDT Tc from pt requesting a call in regards to message above. Please contact pt at [phone] (Omani) * Telephone Encounter - Jean-Paul Finch - 12/06/2022 3:29 PM EDT Tc from pt requesting status on some bed absorbant pads to not stain bed. Please contact pt at [phone] Omani Speaker documented in this encounter Plan of Treatment Upcoming Encounters Date Type Department Care Team (Late st Contact Info) Description 05/07/2024 10:30 AM EDT Medication Management [facility] MEDICINE [address] [place], [place] [phone] Katlyn Rodriguez, PharmD [address] [place], [place] [phone] documented as of this encounter Goals Goal [...] documented as of this encounter Care Teams Certified Anesthesiologist Assistant Relationship Specialty Start Date End Date Name, MD Kiel [address] [place] [address] PCP - General Family Medicine 07/15/15 Puia, Katlyn, PharmD [address] [place] [address] Pharmacist Internal Medicine 10/08/22 Mrata Ovalle Director Financial AnalysisDental Floss Packer 05/25/23 documented as of this encounter
--- OUTSIDE RECORDS SUMMARY | 2024-03-30 17:35 | XMS_ITS | Encounter Summary ---
Author Organization [facility] Address [address] [place] [address] Care Team Providers Care Filter Tank Tender Helper Name Role Phone Name, Kiel BAILEY Primary Care Provider Unavailabl e Name, Kiel BAILEY Primary Care Provider Unavailabl e Philly Vela DO Primary Care Pro vider Unavailable Name, Kiel BAILEY Primary Care Provider Unavailabl e Encounter Details Date Type Department Care Team Description 12/11/2009 Parquetry Layer Report Medical Records [address] [place] [address] Gonzalo Valles MD Social History Tobacco Use Types Packs/Day Years Used Date Smoking Tobacco: Every Day Cigarettes 0.5 15 Last attempted to quit: 10/31/2009 Comments:currently smokes 2 cigs a day Alcohol Use Standard Drinks/Week Comments No 0 (1 standard drink = 0.6 oz pur e alcohol) Sex Assigned at Date Recorded Not on file documented as of this encounter Plan of Treatment Not on file documented as of this encounter Visit Diagnoses Not on filedocumented in this encounter Care Teams Filter Tank Tender Helper Relationship Specialty Start Date End Date Kiel Shaffer MD PCP - General 05/26/09 04/27/15 Kiel Shaffer MD PCP - General Internal Medicine 04/28/15 05/05/15 Philly Vela DO PCP - General Internal Medicine 05/06/15 08/27/15 Kiel Shaffer MD PCP - General Internal Medicine 08/28/15 documented as of this encounter
--- OUTSIDE RECORDS SUMMARY | 2024-03-30 17:35 | XMS_ITS | Encounter Summary ---
Author Organization [email or web address] Address [address] [facility] 7t [place] [address] Care Team Providers Care Diesel Locomotive Engineer Name Role Phone Name, Kiel BAILEY Primary Care Provider [phone] Katlyn Rodriguez PharmD Unavailable [phone] Encounter Details Date Type Department Care Team (Latest Contact Info) Description 03/27/2024 Travel Social History Tobacco Use Types Packs/Day [...] Description 05/07/2024 10:30 AM EDT Medication Management [facility] MEDICINE [address] [place], [place] [phone] Puia, Katlyn, PharmD [address] [place] [address] documented as of this encounter Goals Goal [...] documented as of this encounter Care Teams Diesel Locomotive Engineer Relationship Specialty Start Date End Date Name, MD Kiel [address] [place] [phone] PCP - General Family Medicine 07/15/15 Puia, Katlyn, PharmD [address] [place] [address] [phone] Pharmacist Internal Medicine 10/08/22 Matra Ovalle Forming Acid DumperLearning Support Aide 05/25/23 documented as of this encounter
--- OUTSIDE RECORDS SUMMARY | 2024-03-30 17:35 | XMS_ITS | Encounter Summary ---
Author Organization [employer] [facility] Address [address] [place] [address] [address] [place] [address] Care Team Providers Care Residential Real Estate Appraiser Name Role Phone Kiel Shaffer MD Primary Care Provider [phone] Katlyn Rodriguez PharmD Unavailable [phone] Reason for Referral * Consultation (Routine) - Closed Specialty Diagnoses / Procedures Referred By Contact Referred To Contact Chiropractic Medicine Diagnoses Neck pain, acute Left upper arm pain Kiel Shaffer MD [address] [place] [id number] Phone: tel: fax: [facility] [address] [place] [address] Phone: tel: fax: Referral ID Status Reason Start Date Expiration Date V isits Requested Visits Authorized [id number] Closed Specialty Services Required 03/27/2024 03/27/2025 20 20 Reason for Visit * Reason Comments Follow-up Encounter Details Date Type Department Care Team (Late st Contact Info) Description 03/27/2024 10:45 AM EST Office Visit [facility] [address] [place] [address] [phone] Kiel Shaffer MD [address] [place] [id number] Type 2 diabetes mellitus with other specified complication, with long-term current use of insulin ([facility]) (Primary Dx); Essential hypertension; Neck pain, acute; Left upper arm pain Social History Tobacco Use Types Packs/Day Years [...] AM EDT documented as of this encounter Last Filed Vital Signs Vital Sign Reading Time Taken Comments Blood Pressure 113/64 03/27/2024 10:47 AM EST Pulse 94 03/27/2024 10:47 AM EST Temperature 36 ??C (96.8 ??F) 03/27/2024 10:47 AM EST Respiratory Rate 20 03/27/2024 10:47 AM EST Oxygen Saturation 96% 03/27/2024 10:47 AM EST Inhaled Oxygen Concentration - - Weight 106 kg (234 lb) 03/27/2024 10:47 AM EST Height - - Body Mass Index 41.45 01/24/2024 9:06 AM EST documented in this encounter Progress Notes * Kiel Shaffer MD - 03/27/2024 10:45 AM EST Subjective Patient ID: Sarita Puga is a 58 y.o. female who presents for Follow-up. Patient comes for a follow-up visit. Her blood sugar is well-controlled. She is losing weight sincehe started on Mounjaro and she is tolerating medication well without significant GI side effects. BP is good today as well. We discussed the favorable results of recent blood work she had done at [facility]. Today she denies any chest pains or shortness of breath. She complains of chronic low back pain and she also describes several days of neck pain with radiation to the left arm. NO recent falls. Review of Systems Constitutional: Negative for chills and fever. HENT: Negative for sore throat. Respiratory: Negative for cough, shortness of breath and wheezing. Cardiovascular: Negative for chest pain, palpitations and leg swelling. Gastrointestinal: Negative for abdominal pain. Musculoskeletal: See HPI Visit Vitals BP 113/64 Pulse 94 Temp 96.8 ??F (36 ??C) (Temporal) Resp 20 Wt 234 lb (106 kg) SpO2 96% BMI 41.45 kg/m?? Smoking Status Former BSA 2.17 m?? Objective Physical Exam Constitutional: Appearance: Normal appearance. Cardiovascular: Rate and Rhythm: Normal rate and regular rhythm. Heart sounds: No murmur heard. No gallop. Pulmonary: Effort: Pulmonary effort is normal. No respiratory distress. Breath sounds: Normal breath sounds. No wheezing. Musculoskeletal: Right lower leg: No edema. Left lower leg: No edema. Neurological: Mental Status: She is alert. Lab Results Component Value Date HGBA1C 7.5 (A) 03/27/2024 HGBA1C 9.5 (A) 02/01/2024 HGBA1C 8.1 (A) 10/28/2023 HGBA1C 8.5 (A) 08/12/2023 HGBA1C 10.6 (A) 05/23/2023 HGBA1C 7.0 (A) 02/02/2023 HGBA1C 7.2 (A) 10/20/2022 HGBA1C 9.1 (A) 08/25/2022 HGBA1C 7.5 (A) 06/02/2022 HGBA1C 8.0 (A) 03/04/2022 Lab Results Component Value Date GLUCOSE 162 (H) 05/26/2023 NA 137 05/26/2023 K 4.2 05/26/2023 CO2 25 05/26/2023 CL 104 05/26/2023 BUN 16 05/26/2023 CREATININE 0.63 05/26/2023 Current Outpatient Medications on File Prior to Visit Medication Sig Dispense Refill acetaminophen (Tylenol 8 Hour) 650 MG ER tablet TAKE 1 TABLET BY MOUTH EVERY 8 HOURS NEEDED FOR MILD PAIN DO NOT BREAK, CRUSH, DISSOLVE OR CHEW 90 tablet 1 Advair HFA 115-21 MCG/ACT inhaler INHALE 2 PUFFS BY MOUTH EVERY TWELVE HOURS FOR ASTHMA / COPD. ADMINISTER WITH SPACER. RINSE MOUTH AFTER USING. albuterol (2.5 MG/3ML) 0.083% nebulizer solution INHALE 1 AMPULE USING A NEBULIZER EVERY 6 HOURS ASNEEDED FOR WHEEZING 75 mL 11 albuterol 108 (90 Base) MCG/ACT inhaler Inhale 2 puffs Every 4-6 hours as needed for wheezing. 18 g5 Alcohol Swabs (Alcohol Prep) 70 % pads USE DIRECTED TWICE DAILY 100 each 5 aspirin 81 MG chewable tablet Chew 1 tablet (81 mg) in the evening. 90 tablet 3 atorvastatin (Lipitor) 80 MG tablet Take 1 tablet (80 mg) by mouth in the evening. 90 tablet 3 baclofen (Lioresal) 10 MG tablet Take 1 tablet (10 mg) by mouth if needed in the morning, at noon, and at bedtime for muscle spasms. 60 tablet 1 Blood Glucose Monitoring Suppl (Opti-Source Lite) w/Device kit USE DIRECTED FOUR TIMES DAILY DIRECTED 1 kit 0 Blood Pressure Monitor kit Use to check blood pressure daily 1 kit 0 Calcium Carb-Cholecalciferol (Calcium + Vitamin D3) 600-5 MG-MCG tablet Take 1 tablet by mouth 2 times daily. 180 tablet 3 cetirizine (ZyrTEC) 10 MG tablet Take 1 tablet (10 mg) by mouth in the morning. 90 tablet 1 cloNIDine (Catapres) 0.1 MG tablet TAKE 1 TABLET BY MOUTH AT BEDTIME 30 tablet 1 Diclofenac Sodium 1 % gel Apply 2 g topically if needed in the morning, at noon, in the evening, and at bedtime (pain). 150 g 3 esomeprazole (NexIUM) [address] capsule TAKE 1 CAPSULE BY MOUTH TWICE DAILY IN THE MORNING AND IN THE EVENING ezetimibe (Zetia) 10 MG tablet Take 1 tablet (10 mg) by mouth Once per day. 30 tablet 11 famotidine (Pepcid) 20 MG tablet TAKE 1 TABLET BY MOUTH TWICE DAILY IN THE MORNING AND IN THE EVENING 180 tablet 0 furosemide (Lasix) 20 MG tablet Take 20 mg by mouth in the morning. gabapentin (Neurontin) 600 MG tablet TAKE 1 TABLET BY MOUTH THREE TIMES DAILY IN THE MORNING, EVENING, AND BEDTIME NEEDED FOR PAIN 90 tablet 1 glucose blood (FREESTYLE LITE) test strip Use to test blood sugar up to 4 times daily, as directed.200 strip 11 guaiFENesin (Mucinex) 600 MG 12 hr tablet Take 2 tablets (1,200 mg) by mouth if needed in the morning and at bedtime for cough or congestion. Do not crush, chew, or split. 30 tablet 1 Icosapent Ethyl (Vascepa) 1 g capsule Take 2 capsules (2 g) by mouth with breakfast and with evening meal. 360 capsule 3 insulin glargine (Lantus SoloStar) 100 UNIT/ML pen Inject 40 units subQ once daily as directed. Decrease to 36 units daily, as directed / if needed. insulin lispro (HumaLOG KWIKPEN) 200 UNIT/ML solution pen-injector pen Inject 12 units subcutaneously before breakfast, 10 units before lunch, and 10 units before supper 15 mL 5 ipratropium-albuterol (Combivent Respimat) 20-100 MCG/ACT inhaler Inhale 1 puff every 6 (six) hours. inhale 1 puff by inhalation route 4 times every day ; may take additional puffs as needed not to exceed 6 puffs in 24hrs Ketotifen Fumarate 0.035 % solution Administer 1 drop into affected eye(s) if needed in the morningand at bedtime (eye redness and itching). (Patient not taking: Reported on 02/02/2024) 10 mL 3 lidocaine (Lidoderm) 5 % patch Apply 1 patch topically if needed each day for mild pain. Remove & discard patch within 12 hours or as directed by MD. 30 patch 3 losartan (Cozaar) 50 MG tablet Take 1 tablet (50 mg) by mouth Once per day. 90 tablet 3 meloxicam (Mobic) 7.5 MG tablet Take 1 tablet (7.5 mg) by mouth Once per day. 30 tablet 11 metFORMIN XR (Glucophage-XR) 500 MG 24 hr tablet TAKE 1 TABLET BY MOUTH EVERY EVENING 90 tablet 3 metoprolol succinate XL (Toprol-XL) 25 MG 24 hr tablet Take 1 tablet (25 mg) by mouth at bedtime. Do not crush or chew. 90 tablet 3 montelukast (Singulair) 10 MG tablet Take 1 tablet (10 mg) by mouth at bedtime. 90 tablet 3 naloxone (Narcan) 4 mg/0.1 mL nasal spray Administer 0.1 mL into affected nostril(s). nicotine (Nicoderm CQ) 14 MG/24HR patch Place 1 patch on the skin 1 (one) time each day at the sametime. 14 patch 0 nicotine (Nicoderm CQ) 21 MG/24HR patch Place 1 patch on the skin 1 (one) time each day at the sametime. 42 patch 0 nicotine (Nicoderm CQ) 7 MG/24HR patch Place 1 patch on the skin 1 (one) time each day at the same time. 14 patch 2 nitroglycerin (Nitrostat) 0.4 MG SL tablet DISSOLVE 1 TABLET UNDER THE TONGUE EVERY 5 MINUTES NEEDED FOR CHEST PAIN. CALL 911 IF NO RELIEF OXcarbazepine (Trileptal) 150 MG tablet Take 150 mg by mouth before breakfast. Has additional RX for 300 mg, 1.5 tabs at bedtime OXcarbazepine (Trileptal) 300 MG tablet Take 1.5 tablets by mouth at bedtime. oxyCODONE (Roxicodone) 10 MG immediate release tablet TAKE 1 TABLET BY MOUTH EVERY TWELVE HOURS NEEDED FOR PAIN 56 tablet 0 oxyCODONE (Roxicodone) 5 MG immediate release tablet Take 2 tablets (10 mg) by mouth if needed eachday for severe pain for up to 7 days. 14 tablet 0 PARoxetine (Paxil) 40 MG tablet TAKE 1 TABLET BY MOUTH AT BEDTIME 30 tablet 0 Pred Forte 1 % ophthalmic suspension INSTILL 1 DROP IN THE LEFT EYE FOUR TIMES DAILY pyridoxine (Vitamin B-6) 100 MG tablet Take 100 mg by mouth in the morning. sucralfate (Carafate) 1 g tablet Take 1 g by mouth at bedtime. (Patient not taking: Reported on 02/02/2024) TechLite Plus Pen Rockfall 32G X 4 MM misc USE FOUR TIMES DAILY DIRECTED 100 each 11 Tirzepatide (Mounjaro) 12.5 MG/0.5ML solution auto-injector Inject 12.5 mg under the skin 1 (one) time per week. 2 mL 11 traZODone (Desyrel) 50 MG tablet Take 50 mg by mouth if needed at bedtime for sleep. TRUEplus Lancets 33G misc Use to test blood sugar four times daily as directed 200 each 11 [DISCONTINUED] Calcium + Vitamin D3 600-5 MG-MCG tablet TAKE 1 TABLET BY MOUTH TWICE DAILY IN THE MORNING AND IN THE EVENING 180 tablet 3 [DISCONTINUED] gabapentin (Neurontin) 600 MG tablet TAKE 1 TABLET BY MOUTH THREE TIMES DAILY IN THEMORNING, EVENING, AND BEDTIME NEEDED FOR PAIN 90 tablet 1 [DISCONTINUED] metoprolol succinate XL (Toprol-XL) 25 MG 24 hr tablet TAKE 1 TABLET BY MOUTH AT BEDTIME 90 tablet 3 [DISCONTINUED] montelukast (Singulair) 10 MG tablet TAKE 1 TABLET BY MOUTH AT BEDTIME 90 tablet 3 [DISCONTINUED] oxyCODONE (Roxicodone) 10 MG immediate release tablet Take 1 tablet (10 mg) by mouthevery 12 (twelve) hours if needed for severe pain for up to 28 days. 56 tablet 0 No current facility-administered medications on file prior to visit. Assessment/Plan Diagnoses and all orders for this visit: Type 2 diabetes mellitus with other specified complication, with long-term current use of insulin ([facility]) Comments: Well controlled, continue current meds and avoid sweets and soda Orders: - POCT Glucose - POCT HGB A1C Essential hypertension Comments: see above Neck pain, acute Comments: She asked for referral to chiropractic office where she is getting therapy for low back pain already and I agreed. Orders: - Referral to Chiropractic; Future Left upper arm pain Comments: See above. Orders: - Referral to Chiropractic; Future documented in this encounter Plan of Treatment Upcoming Encounters Date Type Department Care Team (Late st Contact Info) Description 05/07/2024 10:30 AM EDT Medication Management [facility] [address] [place] [address] Puia, Katlyn, PharmD [address] [place] [address] Scheduled Referrals Name Type Priority Associated Diagnoses Order Schedule Referral to Chiropractic Outpatient Referral Routine Neck pain, acute Left upper arm pain Expected: 03/27/2024 (Approximate), Expires: 03/27/2025 documented as of this encounter Goals Goal [...] Name Priority Date/Time Associated Diagnosis Comments POCT GLYCATED HEMOGLOBIN, TOTAL Routine 03/27/2024 10:50 AM EST Type 2 diabetes mellitus with other specified complication, with long-term current use of insulin ([facility]) POCT GLUCOSE Routine 03/27/2024 10:48 AM EST Type 2 diabetes mellitus with other specified complication, with long-term current use of insulin ([facility]) documented in this encounter Results * (ABNORMAL) POCT HGB A1C (03/27/2024 10:50 AM EST) Hemoglobin A1C 7.5(A) 4.0 - 6.0 % QC Media Lot # [id number] Lot# Expiration Date ,863,[id number] Blood 03/27/2024 10:5 0 AM EST Kiel Name POINT OF CARE TEST ENTER/EDIT OR DERABLES Final Result * (ABNORMAL) POCT Glucose (03/27/2024 10:48 AM EST) Glucose Blood, POC 218(A) 60 - 200 mg/dL QC Media Lot # [id number] Lot# Expiration Date Blood Capillary blood specimen / Unknown 03/27/2024 10:48 AM EST Kiel Name POINT OF CARE TEST ENTER/EDIT OR DERABLES Final Result documented in this encounter Visit Diagnoses Diagnosis Type 2 diabetes mellitus with other specified complication, with long-term current use of insulin ([facility])- Primary Essential hypertension Unspecified essential hypertension Neck pain, acute Left upper arm pain documented in this encounter Additional Health Concerns Assessment Noted Time PHQ-9 Depression Total Score: 4 09/02/19 24 10:30 AM EDT documented as of this encounter Care Teams Residential Real Estate Appraiser Relationship Specialty Start Date End Date Name, MD Kiel [address] [place] [address] PCP - General Family Medicine 07/15/15 Katlyn Rodriguez PharmD [address] [place] [address] Pharmacist Internal Medicine 10/08/22 Marta Ovalle [employer] Company Manager 05/25/23 documented as of this encounter
--- OUTSIDE RECORDS SUMMARY | 2024-03-30 17:35 | XMS_ITS | Encounter Summary ---
Author Organization [facility] Address [address] [place] [address] Care Team Providers Care Transcribing Operators Supervisor Name Role Phone Name, Kiel BAILEY Primary Care Provider Unavailabl e Name, Kiel BAILEY Primary Care Provider Unavailabl e Philly Vela DO Primary Care Pro vider Unavailable Name, Kiel BAILEY Primary Care Provider Unavailabl e Encounter Details Date Type Department Care Team Description 02/25/2013 Hospital Medical Records [address] [place] [phone] Gaviota Moody MD Social History Tobacco Use Types Packs/Day [...] on filedocumented in this encounter Care Teams Transcribing Operators Supervisor Relationship Specialty Start Date End Date Kiel Shaffer MD PCP - General 05/26/09 04/27/15 Kiel Shaffer MD PCP - General Internal Medicine 04/28/15 05/05/15 Philly Vela DO PCP - General Internal Medicine 05/06/15 08/27/15 Kiel Shaffer MD PCP - General Internal Medicine 08/28/15 documented as of this encounter
--- OUTSIDE RECORDS SUMMARY | 2024-03-30 17:35 | XMS_ITS | Encounter Summary ---
Author Organization [facility] Address [address] [place] [address] Care Team Providers Care Jig Boring Machine Set Up Operator Name Role Phone Name, Kiel BAILEY Primary Care Provider Unavailabl e Name, Kiel BAILEY Primary Care Provider Unavailabl e Philly Vela DO Primary Care Pro vider Unavailable Name, Kiel BAILEY Primary Care Provider Unavailabl e Encounter Details Date Type Department Care Team Description 12/14/2013 Hospital Medical Records [address] [place] [phone] Randall Garcia MD Social History Tobacco Use Types Packs/Day [...] on filedocumented in this encounter Care Teams Jig Boring Machine Set Up Operator Relationship Specialty Start Date End Date Kiel Shaffer MD PCP - General 05/26/09 04/27/15 Kiel Shaffer MD PCP - General Internal Medicine 04/28/15 05/05/15 Philly Vela DO PCP - General Internal Medicine 05/06/15 08/27/15 Kiel Shaffer MD PCP - General Internal Medicine 08/28/15 documented as of this encounter
--- OUTSIDE RECORDS SUMMARY | 2024-03-30 17:35 | XMS_ITS | Encounter Summary ---
Author Organization [facility] Address [address] [place] [address] Care Team Providers Care Freight Receiver Name Role Phone Name, Kiel BAILEY Primary Care Provider Unavailabl e Name, Kiel BAILEY Primary Care Provider Unavailabl e Philly Vela DO Primary Care Pro vider Unavailable Name, Kiel BAILEY Primary Care Provider Unavailabl e Encounter Details Date Type Department Care Team Description 09/16/2010 Hr Business Partner Report Medical Records [address] [place] [id number] Shon Blanca Social History Tobacco Use Types [...] on filedocumented in this encounter Care Teams Freight Receiver Relationship Specialty Start Date End Date Deena, MD Kiel PCP - General 05/26/09 04/27/15 Kiel Shaffer MD PCP - General Internal Medicine 04/28/15 05/05/15 Philly Vela DO PCP - General Internal Medicine 05/06/15 08/27/15 Kiel Shaffer MD PCP - General Internal Medicine 08/28/15 documented as of this encounter
--- OUTSIDE RECORDS SUMMARY | 2024-03-30 17:35 | XMS_ITS | Clinical Summary ---
Author Organization [facility] Address [address] [place] [address] [address] [place] [address] Care Team Providers Care Pesticide Control Inspector Name Role Phone Name, Kiel BAILEY Primary Care Provider [phone] Katlyn Rodriguez PharmD Unavailable [phone] Allergies Active Allergy Reactions Criticality Noted Date Comments Barium Sulfate Hives 12/01/2023 Gramineae Pollens Itching,Other 07/14/2022 Penicillin G Low 12/01/2023 Other Reaction(s): SWELLING Penicillins Swelling 06/05/2009 Other reaction(s): swelling Medications * This document contains information received from the source organization and may not represent a complete record from that organization. OXcarbazepine (Trileptal) 300 MG tablet Take 1.5 tablets by mouth at bedtime. Active naloxone (Narcan) 4 mg/0.1 mL nasal spray Administer 0.1 mL into affected nostril(s). 022 Active ipratropium-alb uterol (Combivent Respimat) 20-100 MCG/ACT inhaler Inhale 1 puff every 6 (six) hours. inhale 1 puff by inhalation route 4 times every day ; may take additional puffs as needed not to exceed 6 puffs in 24hrs 022 Active nitroglycerin (Nitrostat) 0.4 MG SL tablet DISSOLVE 1 TABLET UNDER THE TONGUE EVERY 5 MINUTES NEEDED FOR CHEST PAIN. CALL 911 IF NO RELIEF 023 Active Advair HFA 115-21 MCG/ACT inhaler INHALE 2 PUFFS BY MOUTH EVERY TWELVE HOURS FOR ASTHMA / COPD. ADMINISTER WITH SPACER. RINSE MOUTH AFTER USING. 07/07/2 023 Active furosemide (Lasix) 20 MG tablet Take 20 mg by mouth in the morning. Active albuterol (2.5 MG/3ML) 0.083% nebulizer solution INHALE 1 AMPULE USING A NEBULIZER EVERY 6 HOURS NEEDED FOR WHEEZING 75 mL 11 Active esomeprazole (NexIUM) [address] capsule TAKE 1 CAPSULE BY MOUTH TWICE DAILY IN THE MORNING AND IN THE EVENING Active pyridoxine (Vitamin B-6) 100 MG tablet Take 100 mg by mouth in the morning. Active albuterol 108 (90 Base) MCG/ACT inhalerIndicati ons:Moderate asthma with exacerbation, unspecified whether persistent Inhale 2 puffs Every 4-6 hours as needed for wheezing. 18 g Active sucralfate (Carafate) 1 g tablet Take 1 g by mouth at bedtime. Active traZODone (Desyrel) 50 MG tablet Take 50 mg by mouth if needed at bedtime for sleep. Active Blood Pressure Monitor kitIndications: Essential hypertension Use to check blood pressure daily 1 kit Active insulin lispro (HumaLOG KWIKPEN) 200 UNIT/ML solution pen-injector penIndications: Type 2 diabetes mellitus with other specified complication, with long-term current use of insulin ([facility]) Inject 12 units subcutaneously before breakfast, 10 units before lunch, and 10 units before supper 15 mL 5 Active cloNIDine (Catapres) 0.1 MG tabletIndicatio ns:Psychophysio logical insomnia TAKE 1 TABLET BY MOUTH AT BEDTIME 30 tablet 1 Active aspirin 81 MG chewable tabletIndicatio ns:Type 2 diabetes mellitus with other specified complication, with long-term current use of insulin (CMS/HCC) Chew 1 tablet (81 mg) in the evening. 90 tablet 3 Active atorvastatin (Lipitor) 80 MG tabletIndicatio ns:Type 2 diabetes mellitus with other specified complication, with long-term current use of insulin ([facility]) Take 1 tablet (80 mg) by mouth in the evening. 90 tablet 3 024 Active Ketotifen Fumarate 0.035 % solutionIndicat ions:Allergic conjunctivitis, unspecified laterality Administer 1 drop into affected eye(s) if needed in the morning and at bedtime (eye redness and itching). 10 mL Active Additional Information Patient not taking.Reported on 02/02/2024 ezetimibe (Zetia) 10 MG tabletIndicatio ns:Type 2 diabetes mellitus with other specified complication, with long-term current use of insulin ([facility]) Take 1 tablet (10 mg) by mouth Once per day. 30 tablet 024 2024 Active Blood Glucose Monitoring Suppl (FreeStyle [place] Lite) w/Device kitIndications: Type 2 diabetes mellitus with other specified complication (CMS/HCC) USE DIRECTED FOUR TIMES DAILY DIRECTED 1 kit Active metFORMIN XR (Glucophage-XR) 500 MG 24 hr tabletIndicatio ns:Type 2 diabetes mellitus with obesity (CMS/HCC) ([facility]) TAKE 1 TABLET BY MOUTH EVERY EVENING 90 tablet Active losartan (Cozaar) 50 MG tabletIndicatio ns:Essential hypertension Take 1 tablet (50 mg) by mouth Once per day. 90 tablet Active meloxicam (Mobic) 7.5 MG tablet Take 1 tablet (7.5 mg) by mouth Once per day. 30 tablet 024 2024 Active guaiFENesin (Mucinex) 600 MG 12 hr tablet Take 2 tablets (1,200 mg) by mouth if needed in the morning and at bedtime for cough or congestion. Do not crush, chew, or split. 30 tablet 024 2024 Active glucose blood (FREESTYLE LITE) test stripIndication s:Type 2 diabetes mellitus with other specified complication, with long-term current use of insulin ([facility]) Use to test blood sugar up to 4 times daily, as directed. 200 strip Active TRUEplus Lancets 33G miscIndications :Type 2 diabetes mellitus with other specified complication, with long-term current use of insulin ([facility]) Use to test blood sugar four times daily as directed 200 each 11 08/29/2 024 Active TechLite Plus Pen [place] 32G X 4 MM misc USE FOUR TIMES DAILY DIRECTED 100 each 11 Active acetaminophen (Tylenol 8 Hour) 650 MG ER tablet TAKE 1 TABLET BY MOUTH EVERY 8 HOURS NEEDED FOR MILD PAIN DO NOT BREAK, CRUSH, DISSOLVE OR CHEW 90 tablet 1 Active cetirizine (ZyrTEC) 10 MG tablet Take 1 tablet (10 mg) by mouth in the morning. 90 tablet 1 Active lidocaine (Lidoderm) 5 % patch Apply 1 patch topically if needed each day for mild pain. Remove & discard patch within 12 hours or as directed by MD. 30 patch 3 Active Diclofenac Sodium 1 % gel Apply 2 g topically if needed in the morning, at noon, in the evening, and at bedtime (pain). 150 g 3 Active baclofen (Lioresal) 10 MG tablet Take 1 tablet (10 mg) by mouth if needed in the morning, at noon, and at bedtime for muscle spasms. 60 tablet 1 Active oxyCODONE (Roxicodone) 5 MG immediate release tabletIndicatio ns:Acute left-sided low back pain with left-sided sciatica Take 2 tablets (10 mg) by mouth if needed each day for severe pain for up to 7 days. 14 tablet Active PARoxetine (Paxil) 40 MG tablet TAKE 1 TABLET BY MOUTH AT BEDTIME 30 tablet Active Alcohol Swabs (Alcohol Prep) 70 % pads USE DIRECTED TWICE DAILY 100 each 5 Active Pred Forte 1 % ophthalmic suspension INSTILL 1 DROP IN THE LEFT EYE FOUR TIMES DAILY Active Tirzepatide (Mounjaro) 12.5 MG/0.5ML solution auto-injectorIn dications:Type 2 diabetes mellitus with other specified complication, with long-term current use of insulin ([facility]) Inject 12.5 mg under the skin 1 (one) time per week. 2 mL 11 Active nicotine (Nicoderm CQ) 14 MG/24HR patchIndication s:Tobacco use disorder Place 1 patch on the skin 1 (one) time each day at the same time. 14 patch 12/12/2 024 Active nicotine (Nicoderm CQ) 7 MG/24HR patchIndication s:Tobacco use disorder Place 1 patch on the skin 1 (one) time each day at the same time. 14 patch 2 024 Active nicotine (Nicoderm CQ) 21 MG/24HR patchIndication s:Tobacco use disorder Place 1 patch on the skin 1 (one) time each day at the same time. 42 patch Active OXcarbazepine (Trileptal) 150 MG tablet Take 150 mg by mouth before breakfast. Has additional RX for 300 mg, 1.5 tabs at bedtime Active Icosapent Ethyl (Vascepa) 1 g capsuleIndicati ons:Type 2 diabetes mellitus with other specified complication, with long-term current use of insulin (CMS/HCC),Hyper triglyceridemia Take 2 capsules (2 g) by mouth with breakfast and with evening meal. 360 capsule 3 Active insulin glargine (Lantus SoloStar) 100 UNIT/ML penIndications: Type 2 diabetes mellitus with other specified complication, with long-term current use of insulin (CMS/HCC) Inject 40 units subQ once daily as directed. Decrease to 36 units daily, as directed / if needed. Active famotidine (Pepcid) 20 MG tablet TAKE 1 TABLET BY MOUTH TWICE DAILY IN THE MORNING AND IN THE EVENING 180 tablet 025 Active gabapentin (Neurontin) 600 MG tabletIndicatio ns:Urticaria TAKE 1 TABLET BY MOUTH THREE TIMES DAILY IN THE MORNING, EVENING, AND BEDTIME NEEDED FOR PAIN 90 tablet 1 025 Active oxyCODONE (Roxicodone) 10 MG immediate release tabletIndicatio ns:Chronic pain syndrome TAKE 1 TABLET BY MOUTH EVERY TWELVE HOURS NEEDED FOR PAIN 56 tablet 025 Active montelukast (Singulair) 10 MG tabletIndicatio ns:Essential hypertension Take 1 tablet (10 mg) by mouth at bedtime. 90 tablet 3 025 Active Calcium Carb-Cholecalci ferol (Calcium + Vitamin D3) 600-5 MG-MCG tabletIndicatio ns:Essential hypertension Take 1 tablet by mouth 2 times daily. 180 tablet 3 025 2025 Active metoprolol succinate XL (Toprol-XL) 25 MG 24 hr tabletIndicatio ns:Essential hypertension Take 1 tablet (25 mg) by mouth at bedtime. Do not crush or chew. 90 tablet 3 025 Active Calcium + Vitamin D3 600-5 MG-MCG tabletIndicatio ns:Essential hypertension TAKE 1 TABLET BY MOUTH TWICE DAILY IN THE MORNING AND IN THE EVENING 180 tablet 3 024 2024 Discontinued(R eorder (will not trigger notification to Pharmacy)) metoprolol succinate XL (Toprol-XL) 25 MG 24 hr tabletIndicatio ns:Essential hypertension TAKE 1 TABLET BY MOUTH AT BEDTIME 90 tablet 3 024 2024 Discontinued(R eorder (will not trigger notification to Pharmacy)) montelukast (Singulair) 10 MG tabletIndicatio ns:Essential hypertension TAKE 1 TABLET BY MOUTH AT BEDTIME 90 tablet 3 024 2024 Discontinued(R eorder (will not trigger notification to Pharmacy)) gabapentin (Neurontin) 600 MG tabletIndicatio ns:Urticaria TAKE 1 TABLET BY MOUTH THREE TIMES DAILY IN THE MORNING, EVENING, AND BEDTIME NEEDED FOR PAIN 90 tablet 1 024 2024 Discontinued oxyCODONE (Roxicodone) 10 MG immediate release tabletIndicatio ns:Chronic pain syndrome Take 1 tablet (10 mg) by mouth every 12 (twelve) hours if needed for severe pain for up to 28 days. 56 tablet 025 2024 Discontinued Active Problems Problem Noted Date Diagnosed Date Acute exacerbation of chronic low back pain 03/2023 Assessment & Plan (01/23/2024 9:18 AM EST): It seems to be related to OA spine, unclear if she had a fracture during the fall 3mo ago Will order Xray left hip, fu results. Toradol 30mg IM today, can repeat 1x/d x 3d max. Continue Meloxicam tomorrow x1w, then prn Take tylenol bid prn pain Refer to PT Advised to apply heat to affected area and we went over some gentle stretching exercises of LB. Left hip pain 01/23/2024 Assessment & Plan (01/23/2024 9:19 AM EST): Likely OA hip, order Xray, See LBP and fu with PCP after PT is completed. Left elbow pain 01/23/2024 Assessment & Plan (01/23/2024 9:19 AM EST): Ro bursitis? 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 No evidence of infection, no evidence of weakness, no evidence of tendon rupture, limited ROM and hyperesthesia. Pt on multiple pain medication including opioid, Gabapentin, Tylenol and benzodiazepine. -Will check X-rays of the neck and shoulder -Trial of Lidocaine patches -Referral made to Orthopedics Left cervical radiculopathy 05/12/2023 Assessment & Plan (05/12/2023 9:17 AM EDT): Acute left arm pain after fall one month ago with radiculopathy. No evidence of infection, no evidence of weakness, no evidence of tendon rupture, limited ROM and hyperesthesia. Pt on multiple pain medication including opioid, Gabapentin, Tylenol and benzodiazepine. -Will check X-rays of the neck and shoulder -Trial of Lidocaine patches - Referral made to Orthopedics. Chronic pain syndrome 05/03/2023 Assessment & Plan (05/03/2023 2:18 PM EDT): Pt attended and participated in group today - urine tox and pill count as expected - followup in one month for theme Tell my story Vaginal itching 05/03/2023 Assessment & Plan (05/03/2023 2:26 PM EDT): Recently treated for vaginal itching/dysuria with Flagyl and started estrogen cream. - continue estrogen cream nightly x 2 weeks, then 2 times per week - control blood sugars - use vaginal clotrimazole x 3 nights for possible yeast Health care maintenance 04/06/2023 Assessment & Plan (04/06/2023 5:47 PM EST): Mammogram ordered Tinea pedis of left foot 04/06/2023 Assessment & Plan (04/06/2023 5:44 PM EST): Ketoconazole rx sent for left toe, Urinary incontinence in female 04/06/2023 Assessment & Plan (04/06/2023 5:48 PM EST): Reviewed previous dme rx, case reviewed verbally with Dme team after visit, who will follow up with rodney as paperwork appears completed and faxed Type 2 diabetes mellitus with other specified co mplication 04/06/2023 Assessment & Plan (04/06/2023 5:49 PM EST): Hyperglycemia today post hot chocolate, recent hgb A1c at goal , pt denies concerns re glucose management COPD exacerbation 03/24/2023 Assessment & Plan (03/24/2023 3:47 PM EST): I presented the case to [facility] emergency room, patient will go by ambulance to be evaluated in light of multiple failures of outpatient management Class 2 obesity 07/14/2022 Pain of hand 07/14/2022 Backache 01/29/2022 Assessment & Plan (04/06/2023 5:45 PM EST): S/p mechanical fall, diffuse tenderness, x-ray ordered Carpal tunnel syndrome 01/29/2022 Chest wall pain 01/29/2022 Ecchymosis 01/29/2022 Fall on hard surface 01/29/2022 Assessment & Plan (04/06/2023 5:50 PM EST): Pt endorses mechanical fall in bathroom, x-ray ordered S/P TKR (total knee replacement), right 11/04/19 Assessment & Plan (08/30/2023 1:55 PM EDT): -Good engagement and participation with Group Medical Visit model -Encouraged multifactorial approach to pain control including pharm and non- pharm modalities -UTOX and Pill count as expected Tubular adenoma 05/12/2021 Left flank pain 10/21/2020 Cervical lymphadenopathy 08/28/2020 Cellulitis of neck 08/06/2020 Neck swelling 12/04/2019 COVID-19 virus infection 07/06/2019 Assessment & Plan (08/04/2023 11:18 AM EDT): -Pt is on Day 2 following initiation of symptoms and positive COVID-19 test at home -Renal fx: eGFR > 60 (May 2023) -Prescription for Paxlovid sent to the pharmacy -Utilized [place] drug interaction raspberry checker to assess interactions with current med list and Paxlovid. Pt was advised to hold atorvastatin and Advair while on Paxlovid and may resume 3 days after completion of medication -Reviewed medication risks, benefits, and contraindications. All questions answered. -Continues with adequate fluid intake. Continue symptomatic management at home -CDC isolation guidelines reviewed -Discussed limitations of televisit given pt past hx. Low threshold for further eval in person ([facility]/ED) with any worsening of symptoms -ED and urgent care precautions reviewed Gait instability 02/05/2019 Memory deficit 02/05/2019 Assessment & Plan (04/06/2023 5:46 PM EST): Pt reports epidsode of confusion in [employer], declines neuro referral today, reviewed s.s requiring ER evaluation and immediate head imaging , pt is scheduled for follow up with pcp in 1 month On home oxygen therapy 02/05/2019 Other headache syndrome 02/05/2019 Skin rash 11/06/2018 Intractable pain 08/07/2018 Anxiety 05/05/2018 Hypotension 04/27/2018 Chemotherapy-induced nausea 04/18/2018 Pancytopenia 04/18/2018 Simple chronic bronchitis 04/18/2018 Overview (07/14/2022): Severe and worse in the spring. Last hospitalazion in May and 3 ER visits [facility] 08/02 B-cell lymphoma 04/17/2018 Seizure 11/18/2017 Hemorrhoids 08/02/2017 Migraine 05/30/2017 Anterior knee pain 10/20/2016 Osteoarthritis of knee 10/20/2016 Assessment & Plan (11/29/2023 10:59 AM EDT): - pt participated in group setting to greatest degree of her ability and desire - utox and pill count as expected - continue to incorporate non-pharmacological modes of treatment into her pain management Assessment & Plan (05/31/2023 1:24 PM EDT): Pt participated in group for chronic pain Utox and pill count as expected Next months topic: distractions for pain and topical salves Mesenteric lymphadenitis 05/10/2016 Asthma 08/05/2015 Essential hypertension 08/05/2015 Assessment & Plan (04/06/2023 5:48 PM EST): Above goal today, clonidine may slightly lower bp temporarily, pt is in care with cardiology, denies chest pain pressure or palpitations H/O: hysterectomy 08/05/2015 Knee pain 08/05/2015 Abnormal nuclear stress test 11/06/2014 Rib fracture 12/24/2013 Overview (07/14/2022): Non displaced, probable froacture on the right ninth and tenth Lipoma of abdominal wall 11/02/2011 Visual field defect 03/29/2011 Obstructive sleep apnea syndrome 01/19/2011 Insomnia 01/07/2011 Assessment & Plan (04/06/2023 5:44 PM EST): Pt notes insomnia nightly since dx of covid, reports no changes in lifestyle or medications, hx clonidine has been helpful, rx sent, side effects including hypotension and increased risk for fall reviewed, pt may stop medication on own if not helpful. Upcoming visit with regarding management of chronic insomnia Cocaine abuse, episodic use 06/17/2010 Depression 06/05/2009 Assessment & Plan (04/06/2023 5:50 PM EST): Pt notes low motivation daily, has upcoming visit with behavioral health and is establishing with therapist, denies crisis today Diabetes mellitus type II, uncontrolled 06/06/19 10 Hypertriglyceridemia 06/05/2009 Severe obesity 06/05/2009 Overview (07/14/2022): BMI 48.37 on 11/15/13 Tobacco use disorder 06/05/2009 Assessment & Plan (04/06/2023 5:46 PM EST): Pt pleased with progress of down to 5 cigarettes per day, has patches at home, declines further assistance today Resolved Problems Problem Noted Date Diagnosed Date Resolved Date Acute atopic conjunctivitis of both eyes 06/07/2023 11/29/2023 Assessment & Plan (06/07/2023 2:46 PM EDT): - most likely allergic - use hydrocortisone cream around both eyes, avoid conjunctival area - use bleph-10 eye drops x 1 week - start using Zyrtec daily - f/u with PCP Other microscopic hematuria 11/06/2018 09/29/2022 Acute cystitis without hematuria 04/18/2018 09/29/2022 Acute exacerbation of chroni c obstructive airways disease with asthma 01/02/2018 06/02/2022 Encounters Date Type Department Care Team Description 03/30/2024 12:00 PM EST Immunization [facility] [address] [place] [phone] Mary Light LPN Encounter for immunization (Primary Dx) 03/30/2024 Travel 03/27/2024 10:45 AM EST Office Visit [address] [phone] NameKiel MD Type 2 diabetes mellitus with other specified complication, with long-term current use of insulin ([facility]) (Primary Dx); Essential hypertension; Neck pain, acute; Left upper arm pain 03/27/2024 Telephone [facility] [address] [place] [phone] Opal Steiner, MARINA 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 R V appt from 03/26/24 03/27/2024 Travel 03/26/2024 Telephone [facility] [address] [place] [phone] NameKiel MD 03/23/2024 Refill [facility] [address] [place] [phone] NameKiel MD Essential hypertension 03/22/2024 Refill [facility] [address] [place] [address] [phone] Name, MD Kiel Chronic pain syndrome 03/21/2024 Refill [facility] [address] [place] [phone] Name, MD Kiel Urticaria 03/08/2024 Telephone [facility] [address] [place] [address] [phone] Name, MD Kiel 02/29/2024 Telephone [facility] [address] [place] [address] [phone] NameKiel MD Appointment Request 02/27/2024 Refill [facility] [address] [place] [address] [phone] Name, MD Kiel 02/23/2024 Telephone [facility] [address] [place] [address] [phone] NameKiel MD Durable Medical Equipment 02/23/2024 Refill [facility] [address] [place] [address] [phone] Name, MD Kiel Chronic pain syndrome 02/20/2024 Telephone [facility] [address] [place] [address] NameKiel MD 02/20/2024 Telephone [facility] [address] [place], [place] [phone] NameKiel MD 02/09/2024 Orders Only [address] [address] Millie Siddiqui DO Acute left-sided low back pain with left-sided sciatica (Primary Dx) 02/08/[address] [address] Renetta Power, MARINA 02/06/[address] [address] Kiel Shaffer MD ER Follow-up 02/03/[address] [address] Katlyn Rodriguez, AngieD Prior Authorization (Vascepa) 02/03/[address] [address] Brianna Buckley, MARINA Results 02/02/[address] [address] Kiel Shaffer MD Referral (Patient walked in requesting referral for physical therapy to be sent to [address] [place] [address] , [phone] Action chiropractor / ) 02/01/2024 2:00 PM EST Office Visit [facility] [address] [place] [phone] Cynthia Zapata MD Acute bronchitis, unspecified organism; Type 2 diabetes mellitus with other specified complication, with long-term current use of insulin ([facility]); Dizziness 02/01/[address] [phone] Kiel Shaffer MD Nurse Triage 01/31/2024 9:00 AM EST Clinical Support [address] [address] Opal Steiner, dehairer pain syndrome (Primary Dx) 01/31/2024 Refill [facility] [address] [place], [place] [phone] Kiel Shaffer MD 01/27/[address] [address] Kiel Shaffer MD Med Refill 01/26/2024 Refill [facility] [address] [place] [phone] Millie Siddiqui DO Acute left-sided low back pain with left-sided sciatica 01/26/2024 Telephone [facility] [address] [place] [phone] Becky Aguayo MA DME from [facility] 01/26/[address] [address] Kiel Shaffer MD Medication Question 01/25/[address] [address] Becky Aguayo MA DME Wipes from [facility] 01/25/[address] [address] Kiel Shaffer MD Referral 01/25/2024 Refill [facility] [address] [place] [phone] Kiel Shaffer MD Urticaria 01/24/2024 9:00 AM EST Office Visit [facility] [address] [place] [phone] Millie Siddiqui DO Acute left-sided low back pain with left-sided sciatica (Primary Dx); Contusion of forehead, initial encounter 01/24/[address] [address] Yvonne Walls MD 01/23/2024 9:00 AM EST Office Visit [facility] [address] [place] [phone] Yvonne Walls MD Acute exacerbation of chronic low back pain (Primary Dx); Left hip pain; Left elbow pain 01/23/2024 Telephone [facility] [address] [place] [phone] Yvonne Walls MD 01/23/[address] [address] Madalyn Carrasco RN 01/23/[address] [address] Kiel Shaffer MD Chronic pain syndrome 01/16/2024 Orders Only [facility] External Provider, [facility] 01/16/2024 Refill [facility] [address] [place] [address] Yvonne Walls MD 01/14/2024 Refill [facility] [address] [place] [address] Name, MD Kiel 12/30/2023 [facility]phone [facility] [facility] [address] [place] [address] Name, MD Kiel Med Refill 12/29/2023 Refill [facility] [address] [place] [address] Name, MD Kiel Chronic pain syndrome from Last 3 Months Immunizations Name Administration Dates Next Due HepB-CpG 11/05/2022,10/08/2022 Influenza Injectable Quadriv alant Preservative Free IIV4 MDCK 11/05/2022 Influenza Whole 11/06/2010 Influenza injectable quadriv alent IIV4 with preservative 01/09/2016 Influenza injectable quadriv alent preservative free 11/13/2021,01/21/2021,01/07/2020,12/13,01/30/2018 Influenza, IIV3, injectable 02/03/2016,1 ,12/16/2013,02/23,11/02/2012,10/26/2011,01/13/2011 ,11/03/2010,11/21/2009 Influenza, seasonal, injecta ble, preservative free 11/29/2023 Novel [id number], all formulations 05/31/2009 Pneumococcal Conjugate PCV 20 10/08/2022 Pneumococcal Polysaccharide PPSV23 02/05/2018,,11/21/2009 TD (adult), 2 Lf tetanus tox oid, preservative free, adsorbed 11/13/2021,11/13/2021 Tdap 03/30/2024,10/22/2021,10/26/2011 Zoster, Recombinant 04/01/2022,05/06/2021 Social History Tobacco Use Types Packs/Day Years Used Date Smoking Tobacco: Former Cigarettes Passive Smoke Exposure: Past Smokeless Tobacco: Never Tobacco Cessation:Counseling Given: Not Answered Alcohol Use Standard Drinks/Week Comments Yes 2 [...] Orientation Straight 12/21/2021 10 :14 AM EDT Last Filed Vital Signs Vital Sign Reading Time Taken Comments Blood Pressure 113/64 03/27/2024 10:47 AM EST Pulse 94 03/27/2024 10:47 AM EST Temperature 36 ??C (96.8 ??F) 03/27/2024 10:47 AM EST Respiratory Rate 20 03/27/2024 10:47 AM EST Oxygen Saturation 96% 03/27/2024 10:47 AM EST Inhaled Oxygen Concentration - - Weight 106 kg (234 lb) 03/27/2024 10:47 AM EST Height 160 cm (5' 3 ) 01/24/2024 9:06 AM EST Body Mass Index 41.45 01/24/2024 9:06 AM EST Plan of Treatment Upcoming Encounters Date Type Department Care Team (Late st Contact Info) Description 05/07/2024 10:30 AM EDT Medication Management [facility] [address] [place] [address] Katlyn Rodriguez, PharmD [address] [place] [address] Health Maintenance Due Date Last Done Comments CT Colonography 1965 FIT DNA/Cologuard 1965 FIT 1965 FOBT 1965 HIV Screening 1965 Sigmoidoscopy 1965 Alcohol/Substance Use Screening 1977 Hepatitis C Screening 08/22/1983 Hepatitis A Vaccines (1 of 2 - Risk 2-dose series) 1984 Pap Smear 1986 HPV/Cotest 08/22/1995 COVID-19 Vaccine ( season) 2023 12/15/2021, 03/13/2021, 08/18/2020, Additional history exists Diabetes: Urine Protein Screening 05/25/2024 05/26/2023, 08/30/2022 Diabetes: Hemoglobin A1C 06/24/2024 025, 02/01/2024, 10/28/2023, Additional history exists Depression Screening 09/01/2024 09/02/2023, 09/02/19 24 SDOH Screening 09/01/2024 09/02/2023 Diabetes: Foot Exam 10/19/2024 10/20/2023, 10/20/2023, 10/20/2023, Additional history exists Lipid Panel 10/24/2024 10/25/2023, 04/0 05/2023, 08/30/2022 Eye Exam 12/16/2024 12/17/2023, 05/26/2022 Tobacco Screening 01/23/2025 01/24/2024 Mammogram 06/02/2025 06/03/2023, 01/03/2019 Colonoscopy 07/02/2027 07/01/2022 Colorectal Cancer Screening 07/02/2027 DTaP/Tdap/Td Vaccines (6 - Td or Tdap) 03/30/2034 03/30/2024, 11/13/2021, 11/13/2021, Additional history exists RSV Patients and Patients Aged 60 years or older (1 - 1-dose 75+ series) 2040 Zoster Vaccines Completed 04/01/2022, 05/06/2021 Pneumococcal Vaccine: 50+ Years Completed 10/08/2022, 02/05/2018, 10/03/2013, Additional history exists Hepatitis B Vaccines Completed 11/05/2022, 10/09/19 Influenza Vaccine Completed 11/29/2023, , 11/13/2021, Additional history exists Cervical Cancer Screening Discontinued HIB Vaccines Aged Out No longer eligi ble based on patient's age to complete this topic HPV Vaccines Aged Out No longer eligi ble based on patient's age to complete this topic IPV Vaccines Aged Out No longer eligi ble based on patient's age to complete this topic Meningococcal Vaccine Aged Out No divina bi eligible based on patient's age to complete this topic RSV under 20 months Aged Out No longe r eligible based on patient's age to complete this topic Rotavirus Vaccines Aged Out No longer eligible based on patient's age to complete this topic Goals Goal Patient Goal Type Associated Problems Recent Progress Patient-Stated? Author Record your blood pressure once per day Blood Pressure No Katlyn Rodriguez PharmSusan Blood Pressure < 140/90 Blood Pressure 113/64(2024 10:47 AM EST) No Katlyn Rodriguez PharmD Hemoglobin A1c < 7 Result Component 7.5( 10:50 AM EST) No Katlyn Rodriguez PharmSusan Record your blood sugar as directed Result Component No Katlyn Rodriguez PharmD Procedures Procedure Name Priority Date/Time Associated Diagnosis Comments POCT GLYCATED HEMOGLOBIN, TOTAL Routine 03/27/2024 10:50 AM EST Type 2 diabetes mellitus with other specified complication, with long-term current use of insulin ([facility]) POCT GLUCOSE Routine 03/27/2024 10:48 AM EST Type 2 diabetes mellitus with other specified complication, with long-term current use of insulin ([facility]) CT RENAL FOR STONES Routine 02/21/2024 3 :09 PM EST POCT HEMOGLOBIN Routine 02/01/2024 12:35 PM EST Type 2 diabetes mellitus with other specified complication, with long-term current use of insulin ([facility]) Dizziness POCT GLYCATED HEMOGLOBIN, TOTAL Routine 02/01/2024 12:35 PM EST Type 2 diabetes mellitus with other specified complication, with long-term current use of insulin ([facility]) Dizziness POCT GLUCOSE Routine 02/01/2024 12:35 PM EST Type 2 diabetes mellitus with other specified complication, with long-term current use of insulin ([facility]) Dizziness MR LUMBAR SPINE WO CONTRAST Routine 02/01/2024 10:29 AM EST Acute left-sided low back pain with left-sided sciatica POCT KEELEY-14 URINE DRUG SCREEN Routine 01/31/2024 9:47 AM EST Chronic pain syndrome XR LUMBAR SPINE 2-3 VIEWS Urgent 01/24/2024 9:59 AM EST Acute left-sided low back pain with left-sided sciatica XR HIP 2 OR 3 VIEWS LEFT Routine 01/23/2024 10:00 AM EST Left hip pain XR ELBOW 3+ VIEWS LEFT Routine 10:00 AM EST Left elbow pain POCT URINALYSIS DIPSTICK Routine 01/23/2024 9:13 AM EST Left hip pain US RENAL BI Routine 01/16/2024 11:41 AM EST LIPID PANEL, STANDARD Routine 10/25/2023 8:11 AM EDT BI MAMMOGRAM SCREENING TOMOSYNTHESIS BILATERAL Routine 06/03/2023 8:45 AM EDT ALBUMIN, RANDOM URINE W/CREATININE Routine 05/26/2023 8:27 AM EDT Type 2 diabetes mellitus with other specified complication, with long-term current use of insulin ([facility]) Rib pain on left side COLONOSCOPY Routine 07/01/2022 4:37 PM EDT DIABETES EYE EXAM Routine 05/26/2022 from Last 3 Months or Most Recently Relevant to Health Maintenance Results * (ABNORMAL) POCT HGB A1C (03/27/2024 10:50 AM EST) Only the most recent of2 resultswithin the time period is included. Hemoglobin A1C 7.5(A) 4.0 - 6.0 % QC Media Lot # [id number] Lot# Expiration Date Blood 03/27/2024 10:5 0 AM EST us Kiel Shaffer MD POINT OF CARE TEST ENTER/EDIT OR DERABLES Final Result * (ABNORMAL) POCT Glucose (03/27/2024 10:48 AM EST) Only the most recent of2 resultswithin the time period is included. Glucose Blood, POC 218(A) 60 - 200 mg/dL QC Media Lot # [id number] Lot# Expiration Date 850 Blood Capillary blood specimen / Unknown 03/27/2024 10:48 AM EST us Kiel Shaffer MD POINT OF CARE TEST ENTER/EDIT OR DERABLES Final Result * CT RENAL FOR STONES (02/21/2024 3:09 PM EST) Anatomical Region Laterality Modality Computed Tomogra phy 02/21/2024 3:09 PM EST Narrative 02/21/2024 3:10 PM EST ? [facility] ?[address] ?[place] [address] ? CT Scan Report ? Signed ? Patient: Puga,Shilpi ?MR#: [id number] ?? 92 ? : 1965 ?Acct:[id number] ? Age/Sex: 58 / F ?ADM Date: 02/21/24 ? Loc: HO.CT ? Attending Dr: Cherelle ROMO ? Ordering Physician: Cherelle Trujillo ?? Date of Service: 02/21/24 ?? Procedure(s): CT kidney stone ?? Accession Number(s): [id number] ? cc: Cherelle Trujillo; Name,Kiel BAILEY ? Report Number: ?? [id number]: Total DLP = ??650.00 mGy-cm ? CLINICAL HISTORY: N20.0 - Calculus of kidney ? CT abdomen and pelvis without IV contrast. ? COMPARISON: None ? FINDINGS: ?? Minimal ground-glass tree-in-bud nodularity within the left lower lobe. ?? Normal gallbladder. Noncontrast appearance of the liver, spleen, pancreas ?? and adrenal glands are unremarkable. ?? No right-sided hydronephrosis. No right renal or ureteral calculus. ?? Nonobstructing 2 mm left renal calculus. Small extrarenal pelvis present ?? on the left. No left hydroureter. No left ureteral calculus. ? Appendix is not seen. Mild colonic stool burden. No bowel obstruction. ?? No mesenteric or retroperitoneal lymphadenopathy. ?? Mild aortoiliac atherosclerotic vascular calcifications. ? Urinary bladder is unremarkable given degree of distention. ?? No adnexal mass. ?? Mild spondylosis. No acute fracture identified. ? IMPRESSION: ?? 1. Nonobstructing 2 mm left renal calculus. No evidence of renal ?? obstruction. No ureteral calculus bilaterally. ? This document has been electronically signed by: Beka Noguera MD on ?? 02/21/2024 15:09:17 ? Dictated By: ?Beka Noguera MD ? Signed By: ?<Electronically signed by Beka Noguera MD in OV> ?02/21/24 1510 ? DD/ 1509 ? TD/TT: 02/21/24 1509 ? Nursing Unit Manager: ? Procedure Note Donotuseinterpreter, Image - 02/21/[address] [place] [address] [address] Scan Report Signed Patient: Sarita Puga#: [id number] 92 : 1965Acct:[id number] Age/Sex: 58 / FADM Date: 02/21/24 Loc: HO.CT Attending Dr: Cherelle GILBERT Ordering Physician: Cherelle Trujillo Date of Service: 02/21/24 Procedure(s): CT kidney stone Accession Number(s): [id number] cc: Cherelle Trujillo; Name,Kiel BAILEY Report Number: [id number]: Total DLP = 650.00 mGy-cm CLINICAL HISTORY: N20.0 - Calculus of kidney CT abdomen and pelvis without IV contrast. COMPARISON: None FINDINGS: Minimal ground-glass tree-in-bud nodularity within the left lower lobe. Normal gallbladder. Noncontrast appearance of the liver, spleen, pancreas and adrenal glands are unremarkable. No right-sided hydronephrosis. No right renal or ureteral calculus. Nonobstructing 2 mm left renal calculus. Small extrarenal pelvis present on the left. No left hydroureter. No left ureteral calculus. Appendix is not seen. Mild colonic stool burden. No bowel obstruction. No mesenteric or retroperitoneal lymphadenopathy. Mild aortoiliac atherosclerotic vascular calcifications. Urinary bladder is unremarkable given degree of distention. No adnexal mass. Mild spondylosis. No acute fracture identified. IMPRESSION: 1. Nonobstructing 2 mm left renal calculus. No evidence of renal obstruction. No ureteral calculus bilaterally. This document has been electronically signed by: Beka Noguera MD on 02/21/2024 15:09:17 Dictated By: Beka Noguera MD Signed By: <Electronically signed by Beka Noguera MD in OV> 02/21/24 1510 DD/ 1509 TD/TT: 02/21/24 1509 Nursing Unit Manager: [facility] External Provider IMG CT PROCEDURES Final Result * POCT Hemoglobin (02/01/2024 12:35 PM EST) Hemoglobin Comment:13.4 Blood 02/01/2024 12:3 5 PM EST us Cynthia Zapata MD POINT OF CARE TEST ENTER/EDIT OR DERABLES Final Result * MR Lumbar Spine w/o Contrast (02/01/2024 10:29 AM EST) Anatomical Region Laterality Modality Spine, L-spine Magnetic Resonan ce 02/01/2024 10:2 9 AM EST Narrative 02/01/2024 11:04 AM EST ? [facility] ?[address] ?[place] [address] ? Magnetic Resonance Report ? Signed ? Patient: Edd,Sarita Jeronimo ?MR#: [id number] ?? 92 ? : 1965 ?Acct:[id number] ? Age/Sex: 58 / F ?ADM Date: 02/01/24 ? Loc: HO.MRI ? Attending Dr: Millie Siddiqui DO ? Ordering Physician: Millie Siddiqui DO ?? Date of Service: 02/01/24 ?? Procedure(s): MR lumbar spine wo con ?? Accession Number(s): [id number] ? cc: Millie Siddiqui DO; Name,Kiel BAILEY ? EXAMINATION: ?? MR LUMBAR SPINE WITHOUT CONTRAST ? CLINICAL INFORMATION: ?? Severe and worsening low back pain radiating into left lower extremity. ?? Left sciatica. ? COMPARISON: ?? None available. ? TECHNIQUE: ?? MRI of the lumbar spine was obtained using routine sequences without ?? contrast. ? FINDINGS: ?? Last rib-bearing vertebra labeled T12. ? Multilevel disc desiccation, L3-4 to L5-S1 and T11-12. ?? Marginal osteophyte formation, T11-12, L3-4 levels. ?? Subtle grade 1 retrolisthesis, L4-5 and L2-3. ?? No bone marrow STIR signal abnormality. ?? Conus medullaris ends at superior endplate of L1 with normal signal. ? T12-L1: ?? No disc herniation. No neuroforamina stenosis. ? L1-2: ?? No disc herniation. No neuroforamina stenosis. ? L2-3: ?? Broad-based disc bulging. Facet joint hypertrophy. No neuroforamina ?? stenosis. ? L3-4: ?? Broad-based disc bulging. Facet joint and ligamentum flavum ?? hypertrophy. Reduced AP diameter of the thecal sac and the neural ?? foramina. ? L4-5: ?? Central broad-based disc herniation resulting in ventral deformity of ?? the thecal sac. Reduced AP diameter of the thecal sac. Facet joint and ?? ligamentum flavum hypertrophy. Bilateral neuroforamina narrowing. ? L5-S1: ?? Broad-based disc bulging. Facet joint hypertrophy. Reduced AP diameter ?? of the thecal sac and bilateral neuroforamina narrowing likely ?? encroaching the exiting nerve roots. ? No prevertebral compartment hematoma, mass or fluid collection. ?? Extrarenal pelvises, bilaterally. ? MR/MR lumbar spine wo con ?? IMPRESSION: ?? Multilevel spondylosis and Central broad-based disc herniation L4-5 ?? encroaching the neural elements of the thecal sac and the exiting nerve ?? roots at L4-5 and to a lesser extent L5-S1. ? Electronically signed by: ??Felix Fall MD ??02/01/2024 11:01 AM ?? EST RP ? Dictated By: ?Felix Mckinnon MD ? Signed By: ?<Electronically signed by Felix Tilley MD in OV> ? 02/01/24 1101 ? DD/ 1029 ? TD/TT: 02/01/24 1045 ? Nursing Unit Manager: ? Procedure Note Sarmad, Image - 02/01/[address] [address] Magnetic Resonance Report Signed Patient: Sarita Puga MMR#: [id number] 92 : 1965Acct:[id number] Age/Sex: 58 / FADM Date: 02/01/24 Loc: HO.MRI Attending Dr: Millie Siddiqui DO Ordering Physician: Millie Siddiqui DO Date of Service: 02/01/24 Procedure(s): MR lumbar spine wo con Accession Number(s): [id number] cc: Millie Siddiqui DO; Name,Kiel BAILEY EXAMINATION: MR LUMBAR SPINE WITHOUT CONTRAST CLINICAL INFORMATION: Severe and worsening low back pain radiating into left lower extremity. Left sciatica. COMPARISON: None available. TECHNIQUE: MRI of the lumbar spine was obtained using routine sequences without contrast. FINDINGS: Last rib-bearing vertebra labeled T12. Multilevel disc desiccation, L3-4 to L5-S1 and T11-12. Marginal osteophyte formation, T11-12, L3-4 levels. Subtle grade 1 retrolisthesis, L4-5 and L2-3. No bone marrow STIR signal abnormality. Conus medullaris ends at superior endplate of L1 with normal signal. T12-L1: No disc herniation. No neuroforamina stenosis. L1-2: No disc herniation. No neuroforamina stenosis. L2-3: Broad-based disc bulging. Facet joint hypertrophy. No neuroforamina stenosis. L3-4: Broad-based disc bulging. Facet joint and ligamentum flavum hypertrophy. Reduced AP diameter of the thecal sac and the neural foramina. L4-5: Central broad-based disc herniation resulting in ventral deformity of the thecal sac. Reduced AP diameter of the thecal sac. Facet joint and ligamentum flavum hypertrophy. Bilateral neuroforamina narrowing. L5-S1: Broad-based disc bulging. Facet joint hypertrophy. Reduced AP diameter of the thecal sac and bilateral neuroforamina narrowing likely encroaching the exiting nerve roots. No prevertebral compartment hematoma, mass or fluid collection. Extrarenal pelvises, bilaterally. MR/MR lumbar spine wo con IMPRESSION: Multilevel spondylosis and Central broad-based disc herniation L4-5 encroaching the neural elements of the thecal sac and the exiting nerve roots at L4-5 and to a lesser extent L5-S1. Electronically signed by: Felix Fall MD 02/01/2024 11:01 AM [facility] Dictated By: Felix Mckinnon MD Signed By: <Electronically signed by Felix Tilley MDin OV> 02/01/24 1101 DD/ 1029 TD/TT: 02/01/24 1045 Nursing Unit Manager: us Millie Siddiqui DO IMG MRI PROCEDURES Edited Re sult - Final * POCT KEELEY-14 Urine Drug Screen (01/31/2024 9:47 AM EST) Oxycodone Screen, Urine Positive Urine Urine specimen obtained by clean catch procedure / Unknown 01/31/2024 9:47 AM EST Narrative Opal Steiner RN - 01/31/2024 9:47 AM EST UTOX cup Lot#[id number] Exp. 11/15/25 Internal Pass Control us Kiel Shaffer MD POINT OF CARE TEST ENTER/EDIT OR DERABLES Final Result * XR Lumbar Spine 2-3 Views (01/24/2024 9:59 AM EST) Anatomical Region Laterality Modality Spine, L-spine Radiographic Diana ging 01/24/2024 9:59 AM EST Narrative 01/24/2024 1:08 PM EST ?[facility] ?[address] ?[place] [address] ?XRay Report ? Signed ? Patient: Sarita Puga ?MR#: [id number] ?? 92 ? : 1965 ?Acct:[id number] ? Age/Sex: 58 / F ?ADM Date: 01/24/24 ? Loc: HO.HHCX ? Attending Dr: Millie Siddiqui DO ? Ordering Physician: Millie Siddiqui DO ?? Date of Service: 01/24/24 ?? Procedure(s): XR lumbar spine 2-3V ?? Accession Number(s): [id number] ? cc: ArturMillie Danette DO ? EXAMINATION: ?? XR LUMBOSACRAL SPINE ? CLINICAL INFORMATION: ?? Acute left-sided low back pain with left-sided sciatica. ? COMPARISON: ?? 04/06/2023 ? TECHNIQUE: ?? Three views of the lumbosacral spine. ? FINDINGS: ?? Dextroscoliosis of the lumbar spine. Surgical clips in the pelvis. ? Degenerative changes in the bilateral sacroiliac joints. ? Redemonstration of mild anterior wedge compression deformity of L4 ?? vertebral body. ? Facet arthritis in the lower lumbar spine. Moderate multilevel lumbar ?? spondylosis with loss of disc space height at L4-L5 and L5-S1. ? XR/XR lumbar spine 2-3V ?? IMPRESSION: ?? 1. Redemonstration of mild anterior wedge compression deformity of L4 ?? vertebral body. ? 2. Moderate multilevel lumbar spondylosis with loss of disc space ?? height at L4-L5 and L5-S1. ? This study was presented today January 24, 2024 for interpretation. ?? Stat results provided at this time as requested by referring provider. ? Electronically signed by: ??Mariosl Rodgers MD ??01/24/2024 01:05 PM EST ? Dictated By: ?Marisol Rodgers MD ? Signed By: ?<Electronically signed by Marisol Rodgers MD in OV> ? 01/24/24 1305 ? DD/ 0959 ? TD/TT: 01/24/24 1004 ? Nursing Unit Manager: ? Procedure Note Jung Bañuelos - 01/24/[address] [address] XRay Report Signed Patient: Sarita Puga MMR#: [id number] 92 : 1965Acct:[id number] Age/Sex: 58 / FADM Date: 01/24/24 Loc: HO.HHCX Attending Dr: Millie Siddiqui DO Ordering Physician: Millie Siddiqui DO Date of Service: 01/24/24 Procedure(s): XR lumbar spine 2-3V Accession Number(s): [id number] cc: Millie Siddiqui DO EXAMINATION: XR LUMBOSACRAL SPINE CLINICAL INFORMATION: Acute left-sided low back pain with left-sided sciatica. COMPARISON: 04/06/2023 TECHNIQUE: Three views of the lumbosacral spine. FINDINGS: Dextroscoliosis of the lumbar spine. Surgical clips in the pelvis. Degenerative changes in the bilateral sacroiliac joints. Redemonstration of mild anterior wedge compression deformity of L4 vertebral body. Facet arthritis in the lower lumbar spine. Moderate multilevel lumbar spondylosis with loss of disc space height at L4-L5 and L5-S1. XR/XR lumbar spine 2-3V IMPRESSION: 1. Redemonstration of mild anterior wedge compression deformity of L4 vertebral body. 2. Moderate multilevel lumbar spondylosis with loss of disc space height at L4-L5 and L5-S1. This study was presented today January 24, 2024 for interpretation. Stat results provided at this time as requested by referring provider. Electronically signed by: Marisol Rodgers MD 01/24/2024 01:05 PM EST Dictated By: Marisol Rodgers MD Signed By: <Electronically signed by Marisol Rodgers MD in OV> 01/24/24 1305 DD/ 0959 TD/TT: 01/24/24 1004 Nursing Unit Manager: us Millie Artur DO IMG XR PROCEDURES Final Resu lt * XR Hip 2 or 3 Views Left (01/23/2024 10:00 AM EST) Anatomical Region Laterality Modality Lower Extremities, Hip Left Radiograp hic Imaging 01/23/2024 10:0 0 AM EST Narrative 01/23/2024 3:13 PM EST ?[facility] ?[address] ?[place] [address] ?XRay Report ? Signed ? Patient: Puga,Shilpi ?MR#: [id number] ?? 92 ? : 1965 ?Acct:[id number] ? Age/Sex: 58 / F ?ADM Date: 12/02/24 ? Loc: HO.HHCX ? Attending : Yvonne Walls MD ? Ordering Physician: Yvonne Walls MD ?? Date of Service: 01/23/24 ?? Procedure(s): XR hip LT min 2V ?? Accession Number(s): [id number] ? cc: Yvonne Walls MD ? EXAMINATION: ?? XR HIP, LEFT ? CLINICAL INFORMATION: ?? left hip pain/sp fall ? COMPARISON: ?? None available. ? TECHNIQUE: ?? Two views of the left hip. ? FINDINGS: ?? No fracture. Alignment is anatomic. Hip joint space is maintained. Soft ?? tissues are unremarkable. ?? Surgical clips noted in the pelvis ? XR/XR hip LT min 2V ?? IMPRESSION: ?? Normal left hip. ? Electronically signed by: ??Tyron Santos MD ??01/23/2024 03:10 PM ?? EST RP ? Dictated By: ?Tyron Santos MD ? Signed By: ?<Electronically signed by Tyron Santos MD in OV> ?01/23/24 1510 ? DD/ 1000 ? TD/TT: 01/23/24 1030 ? Nursing Unit Manager: WG ? Procedure Note Jung Bañuelos - 01/23/[address] [address] XRay Report Signed Patient: Sarita Puga MMR#: [id number] 92 : 1965Acct:[id number] Age/Sex: 58 / FADM Date: 01/23/24 Loc: HO.HHCX Attending Dr: Yvonne Walls MD Ordering Physician: Yvonne Walls MD Date of Service: 01/23/24 Procedure(s): XR hip LT min 2V Accession Number(s): [id number] cc: Yvonne Walls MD EXAMINATION: XR HIP, LEFT CLINICAL INFORMATION: left hip pain/sp fall COMPARISON: None available. TECHNIQUE: Two views of the left hip. FINDINGS: No fracture. Alignment is anatomic. Hip joint space is maintained. Soft tissues are unremarkable. Surgical clips noted in the pelvis XR/XR hip LT min 2V IMPRESSION: Normal left hip. Electronically signed by: Tyron Santos MD 01/23/2024 03:10 PM [facility] Dictated By: Tyron Santos MD Signed By: <Electronically signed by Tyron Santos MD inOV> 01/23/24 1510 DD/ 1000 TD/TT: 01/23/24 1030 Nursing Unit Manager: LEANNE us Yvonne Walls MD IMG XR PROCEDURES Final Result * XR Elbow 3+ Views Left (01/23/2024 10:00 AM EST) Anatomical Region Laterality Modality Upper Extremities, Elbow Left Radiogr aphic Imaging 01/23/2024 10:0 0 AM EST Narrative 01/23/2024 3:12 PM EST ?[facility] ?[address] ?[place] [address] ?XRay Report ? Signed ? Patient: Sarita Puga ?MR#: [id number] ?? 92 ? : 1965 ?Acct:[id number] ? Age/Sex: 58 / F ?ADM Date: 01/23/24 ? Loc: HO.HHCX ? Attending Dr: Yvonne Walls MD ? Ordering Physician: Yvonne Walls MD ?? Date of Service: 01/23/24 ?? Procedure(s): XR elbow LT min 3V ?? Accession Number(s): [id number] ? cc: Yvonne Walls MD ? EXAMINATION: ?? XR ELBOW, LEFT ? CLINICAL INFORMATION: ?? left elbowpain/ sp fall 3m ago ? COMPARISON: ?? Prior x-ray of the left elbow 08/18/2023 ? TECHNIQUE: ?? Four views of the left elbow. ? FINDINGS: ?? The bones and soft tissues are normal. No fracture or joint effusion. ?? Alignment is anatomic. Joint spaces are maintained. ? XR/XR elbow LT min 3V ?? IMPRESSION: ?? Normal left elbow. ? Electronically signed by: ??Tyron Santos MD ??01/23/2024 03:10 PM ?? EST RP ? Dictated By: ?Tyron Santos MD ? Signed By: ?<Electronically signed by Tyron Santos MD in OV> ?01/23/24 1510 ? DD/ 1000 ? TD/TT: 01/23/24 1030 ? Nursing Unit Manager: WG ? Procedure Note Sarmad, Image - 01/23/2024 [facility] [address] [place] [address] XRay Report Signed Patient: Sarita Puga MMR#: [id number] 92 : 1965Acct:[id number] Age/Sex: 58 / FADM Date: 01/23/24 [facility]: Yvonne Walls MD Ordering Physician: Yvonne Walls MD Date of Service: 01/23/24 Procedure(s): XR elbow LT min 3V Accession Number(s): [id number] cc: Yvonne Walls MD EXAMINATION: XR ELBOW, LEFT CLINICAL INFORMATION: left elbowpain/ sp fall 3m ago COMPARISON: Prior x-ray of the left elbow 08/18/2023 TECHNIQUE: Four views of the left elbow. FINDINGS: The bones and soft tissues are normal. No fracture or joint effusion. Alignment is anatomic. Joint spaces are maintained. XR/XR elbow LT min 3V IMPRESSION: Normal left elbow. Electronically signed by: Tyron Santos MD 01/23/2024 03:10 PM EST Dictated By: Tyron Santos MD Signed By: <Electronically signed by Tyron Santos MD inOV> 01/23/24 1510 DD/ 1000 TD/TT: 01/23/24 1030 Nursing Unit Manager: WG Yvonne Walls MD IMG XR PROCEDURES Final Result * POCT urinalysis dipstick manually resulted (01/23/2024 9:13 AM EST) Color, UA Yellow Clarity, UA Clear Glucose, UA Trace Comment:1000 mg/dl Bilirubin, UA Negative Ketones, UA Negative Spec Grav, UA 1.020 Blood, UA Negative Negative, None Detected pH, UA 6.0 Protein, UA Negative Urobilinogen, UA 0.2 Leukocytes, UA Negative Negative, Rare, Trace Nitrite, UA Negative Negative, None Detected Urine 01/23/2024 9:13 AM EST us Yvonne Walls MD POINT OF CARE TEST ENTER /EDIT ORDERABLES Final Result * US RENAL BI (01/16/2024 11:41 AM EST) Anatomical Region Laterality Modality Abdomen Ultrasound 01/16/2024 11:4 1 AM EST Narrative 03/10/2024 2:37 PM EST ? [facility] ?[address] ?[place] [address] ? Ultrasound Report ? Signed ? Patient: Puga,Shilpi ?MR#: [id number] ?? 92 ? : 1965 ?Acct:[id number] ? Age/Sex: 58 / F ?ADM Date: 01/16/24 ? Loc: HO.US ? Attending Dr: Cherelle ROMO ? Ordering Physician: Cherelle Trujillo ?? Date of Service: 01/16/24 ?? Procedure(s): US renal BI ?? Accession Number(s): [id number] ? cc: Cherelle Trujillo; Name,Kiel BAILEY ? [...] ??Marisol Rodgers MD ??03/10/2024 02:34 PM EST ? Dictated By: ?Marisol Rodgers MD ? Signed By: ?<Electronically signed by Marisol Rodgers MD in OV> ? 03/10/24 1434 ? DD/ 1141 ? TD/TT: 01/16/24 1147 ? Nursing Unit Manager: ? Procedure Note Donotuseinterpreter, Image - 03/10/[address] [address] Ultrasound Report Signed Patient: Sarita Puga MMR#: [id number] 92 : 1965Acct:[id number] Age/Sex: 58 / FADM Date: 01/16/24 Loc: HO.US Attending Dr: Cherelle ROMO Ordering Physician: Cherelle Trujillo Date of Service: 01/16/24 Procedure(s): US renal BI Accession Number(s): [id number] cc: Cherelle Trujillo; Name,Kiel BAILEY EXAMINATION: US [...] 03/10/24 1434 DD/ 1141 TD/TT: 01/16/24 1147 Nursing Unit Manager: [facility] External Provider IMG US PROCEDURES Edited Result - Final * (ABNORMAL) Lipid Panel, Standard (10/25/2023 8:11 AM EDT) Triglycerides 266(H) <150 mg/dL [facility] Comment:Desirable Triglyceri de: less than 150 mg/dLBorderline High Triglyceride 150-199 mg/dLHigh Triglyceride: 200-499 mg/dLVery High Triglyceride: greater than or equal to 5OO mg/dL Cholesterol 206(H) <200 mg/dL [facility] Comment:Desirable Cholestero l: less than 200 mg/dLBorderline High Cholesterol: 200-239 mg/dLHigh Cholesterol: greater than 239 mg/dL LDL Cholesterol Calculated 104(H) <100 mg/dL [facility] Comment:Desirable LDL: less than 100 mg/dLNear Optimal/Above Optimal LDL: 110- 129 mg/dLBorderline High LDL: 130-159 mg/dLHigh LDL: 160-189 mg/dLVery High LDL: greater than or equal to 190 mg/dL HDL Cholesterol 49 >40 mg/dL [facility] Comment:Desirable HDL: great er than 40 mg/dL Note: This HDL assay may give artificially low results in patients with liver disease. 10/25/2023 8:11 AM EDT 10/25/2023 11:22 AM EDT Kiel Shaffer MD LAB BLOOD ORDERABLES Final Resul t [facility] [address] [place] [phone] * BI Mammogram Screening Tomosynthesis Bilateral (06/03/2023 8:45 AM EDT) Anatomical Region Laterality Modality Breast Bilateral Mammography 06/03/2023 8:45 AM EDT Narrative 06/30/2023 10:24 PM EDT ? [place] [facility] ? [address] ?[place], [place] [address] ? Mammography Report ? Signed ? Patient: Puga,Shilpi ?MR#: [id number] ?? 92 ? : 1965 ?Acct:[id number] ? Age/Sex: 57 / F ?ADM Date: 06/03/23 ? Loc: HO.MAMMO ? Attending Dr: Kiel Shaffer MD ? Ordering Physician: Name,Kiel BAILEY ?Results: 1Negative ? Date of Service: 06/03/23 ?Follow Up: 1 Year From Orig ?? inal Mammogram ? Procedure(s): MM tomosynthesis screening BI ?? Accession Number(s): [id number] ? cc: Name,Kiel BAILEY ? EXAMINATION: ?? MM SCREENING DIGITAL BREAST TOMOSYNTHESIS, BILATERAL ? CLINICAL INFORMATION: ? Screening. Asymptomatic. ? COMPARISON: ?? Mammography: This study is compared with prior exams dating back to ?? 2017. ? TECHNIQUE: ?? Digital breast tomosynthesis is performed in both the craniocaudal and ?? mediolateral oblique views along with computer-aided detection (CAD). ?? Synthesized 2D images are generated from the tomosynthesis. ? FINDINGS: ?? The breasts are almost entirely fatty (ACR BI-RADS breast composition ?? Category a). ? There are no significant masses, abnormal calcifications, or other ?? abnormalities. ? MM/MM tomosynthesis screening BI ?? IMPRESSION: ?? No mammographic evidence of malignancy. ? ASSESSMENT: ? BI-RADS BI-RADS 1 - Negative ? RECOMMENDATION: ?? Routine annual mammography screening. ? 1 year F/U ? This examination should not preclude the clinical evaluation of a ?? suspicious palpable abnormality. ? This patient's information was entered into a reminder system with a ?? target due date for their next mammogram. ? Dictated By: ?Nancy Healy MD ? Signed By: ?<Electronically signed by Nancy Healy MD in OV> ? 06/30/232219 ? DD/ 0845 ? TD/TT: ? Nursing Unit Manager: ? Procedure Note Sarmad, Image - 06/30/2023 [place] [facility] [address] [place], [place] [address] Mammography Report Signed Patient: Sarita Puga MMR#: [id number] 92 : 1965Acct:[id number] Age/Sex: 57 / FADM Date: 06/03/23 Loc: HO.MAMMO Attending Dr: Kiel Shaffer MD Ordering Physician: Kiel Shafferesults: 1Negative Date of Service: 06/03/23Follow Up: 1 Year From Orig ina Mammogram Procedure(s): MM tomosynthesis screening BI Accession Number(s): [id number] cc: Kiel Shaffer MD EXAMINATION: MM SCREENING DIGITAL BREAST TOMOSYNTHESIS, BILATERAL CLINICAL INFORMATION: Screening. Asymptomatic. COMPARISON: Mammography: This study is compared with prior exams dating back to 2017. TECHNIQUE: Digital breast tomosynthesis is performed in both the craniocaudal and mediolateral oblique views along with computer-aided detection (CAD). Synthesized 2D images are generated from the tomosynthesis. FINDINGS: The breasts are almost entirely fatty (ACR BI-RADS breast composition Category a). There are no significant masses, abnormal calcifications, or other abnormalities. MM/MM tomosynthesis screening BI IMPRESSION: No mammographic evidence of malignancy. ASSESSMENT: BI-RADS BI-RADS 1 - Negative RECOMMENDATION: Routine annual mammography screening. 1 year F/U This examination should not preclude the clinical evaluation of a suspicious palpable abnormality. This patient's information was entered into a reminder system with a target due date for their next mammogram. Dictated By: Nancy Healy MD Signed By: <Electronically signed by Nancy Healy MD in OV> 06/30/232219 DD/ 0845 TD/TT: Nursing Unit Manager: us Kiel Shaffer MD IMG BI PROCEDURES Edited Result - Final * Albumin, Random Urine W/Creatinine (05/26/2023 8:27 AM EDT) Creatinine, Urine 185.88 mg/dL [facility] Microalbumin Urine 23.0 mg/L [facility] Microalbum Creatinine Ratio Ur 12.3 <30 ug/mg cr [facility] Comment:Albumin/Creatinine R atio Reference Ranges: Normal: < 30 ug/mg creatinine Microalbuminuria: 30 - 300 ug/mg creatinineClinical Albuminuria: > 300 ug/mg creatinine Urine (Urine, Random) 05/26/2023 8:27 AM EDT 05/26/2023 11:19 AM EDT Result Rosita Shaffer MD LAB URINE ORDERABLES Final Resul t [facility] [address] [place] [address] [phone] * Colonoscopy (07/01/2022 4:37 PM EDT) Colonoscopy Normal Normal Narrative [place] [facility] - 07/01/2022 4:37 PM EDT Recommended 5 year follow up ([facility]) us Glo Chong MD HEALTH MAINTENANCE Final Result * Diabetes Eye Exam (05/26/2022) Eye Exam Normal Normal us Kiel Shaffer MD HEALTH MAINTENANCE Final Result from Last 3 Months or Most Recently Relevant to Health Maintenance Insurance [place] [address] [place] [address] [place] [facility] C3 Care Teams Pesticide Control Inspector Relationship Specialty Start Date End Date Name, MD Kiel [address] [place] [id number] PCP - General Family Medicine 07/15/15 Katlyn Rodriguez PharmD [address] [place], [place] Pharmacist Internal Medicine 10/08/22 Marta Ovalle Front Line LeaderProgram Aide Group Work 05/25/23
--- OUTSIDE RECORDS SUMMARY | 2024-03-30 17:35 | XMS_ITS | Encounter Summary ---
Author Organization [employer] Address [address] [place] [address] Care Team Providers Care Event Management Consultant Name Role Phone Name, Kiel BAILEY Primary Care Provider [phone] Katlyn Rodriguez PharmD Unavailable [phone] Encounter Details Date Type Department Care Team ([facility] Contact Info) Description 03/26/2024 Telephone [facility] [address] [place], [place] [phone] Name, MD Kiel [address] [place] [address] Social History Tobacco Use Types Packs/Day Years [...] encounter Miscellaneous Notes * Telephone Encounter - Priscilla Carey - 03/26/2024 8:54 AM EST Pt walked in for appt but we received a email last minute that Opal was out so we told her theywill call her to rs appt. documented in this encounter Plan of Treatment Upcoming Encounters Date Type Department Care Team (Late st Contact Info) Description 05/07/2024 10:30 AM EDT Medication Management [facility] [address] [place] [address] Puia, Katlyn, PharmD [address] [place] [address] documented as of this encounter Goals Goal [...] documented as of this encounter Care Teams Event Management Consultant Relationship Specialty Start Date End Date Name, MD Kiel [address] [place] [address] PCP - General Family Medicine 07/15/15 Katlyn Rodriguez PharmD [address] [place] [address] Pharmacist Internal Medicine 10/08/22 Marta Ovalle Electrophysiology TechnicianAssociate Account Manager 05/25/23 documented as of this encounter
--- OUTSIDE RECORDS SUMMARY | 2024-03-30 17:35 | XMS_ITS | Encounter Summary ---
Author Organization [facility] Address [address] [place] [address] Care Team Providers Care Rug Shampooer Name Role Phone Name, Kiel BAILEY Primary Care Provider Unavailabl e Name, Kiel BAILEY Primary Care Provider Unavailabl e Philly Vela DO Primary Care Pro vider Unavailable Name, Kiel BAILEY Primary Care Provider Unavailabl e Encounter Details Date Type Department Care Team Description 06/14/2012 Hand Bender Report Medical Records [address] [place] [address] Bright Jesus MD Social History Tobacco Use Types Packs/Day [...] on filedocumented in this encounter Care Teams Rug Shampooer Relationship Specialty Start Date End Date Kiel Shaffer MD PCP - General 05/26/09 04/27/15 Kiel Shaffer MD PCP - General Internal Medicine 04/28/15 05/05/15 Philly Vela DO PCP - General Internal Medicine 05/06/15 08/27/15 Kiel Shaffer MD PCP - General Internal Medicine 08/28/15 documented as of this encounter
--- OUTSIDE RECORDS SUMMARY | 2024-03-30 17:35 | XMS_ITS | Encounter Summary ---
Author Organization [facility] Address [address] [place] [address] Care Team Providers Care Machine Filler Servicer Name Role Phone Name, Kiel BAILEY Primary Care Provider Unavailabl e Name, Kiel BAILEY Primary Care Provider Unavailabl e Philly Vela DO Primary Care Pro vider Unavailable Name, Kiel BAILEY Primary Care Provider Unavailabl e Encounter Details Date Type Department Care Team Description 10/15/2010 Hospital Medical Records [address] [place] [address] Juan M Moreland Np Social History Tobacco Use Types Packs/Day Years [...] on filedocumented in this encounter Care Teams Machine Filler Servicer Relationship Specialty Start Date End Date Kiel Shaffer MD PCP - General 05/26/09 04/27/15 Kiel Shaffer MD PCP - General Internal Medicine 04/28/15 05/05/15 Philly Vela DO PCP - General Internal Medicine 05/06/15 08/27/15 Kiel Shaffer MD PCP - General Internal Medicine 08/28/15 documented as of this encounter
--- OUTSIDE RECORDS SUMMARY | 2024-03-30 17:35 | XMS_ITS | Encounter Summary ---
[facility] Organization [facility] Address [address] [place] [address] Care Team Providers Care Snailer Name Role Phone Name, Kiel BAILEY Primary Care Provider Unavailabl e Name, Kiel BAILEY Primary Care Provider Unavailabl e Philly Vela DO Primary Care Pro vider Unavailable Name, Kiel BAILEY Primary Care Provider Unavailabl e Encounter Details Date Type Department Care Team Description 11/23/2009 Hospital Medical Records [address] [place] [address] Valencia Delvalle Social History Tobacco Use Types Packs/Day Years [...] on filedocumented in this encounter Care Teams Snailer Relationship Specialty Start Date End Date Kiel Shaffer MD PCP - General 05/26/09 04/27/15 Kiel Shaffer MD PCP - General Internal Medicine 04/28/15 05/05/15 Philly Vela DO PCP - General Internal Medicine 05/06/15 08/27/15 Kiel Shaffer MD PCP - General Internal Medicine 08/28/15 documented as of this encounter
--- OUTSIDE RECORDS SUMMARY | 2024-03-30 17:35 | XMS_ITS | Encounter Summary ---
Author Organization [employer] Address [address] [facility] [address] [place] [address] Care Team Providers Care Embedded Systems Engineer Name Role Phone Name, Kiel BAILEY Primary Care Provider [phone] Katlyn Rodriguez PharmD Unavailable [phone] Reason for Visit * Reason Onset Date Comments Reschedule STORE CASHIER R V appt from 03/26/24 03/27/2024 Encounter Details Date Type Department Care Team (Late st Contact Info) Description 03/27/2024 Telephone [facility] [address] [place] [address] Opal Steiner, RN Reschedule STORE CASHIER R V appt from 03/26/24 Social History Tobacco Use Types Packs/Day Years [...] encounter Miscellaneous Notes * Telephone Encounter - Opal Steiner RN - 03/27/2024 2:49 PM EST TC via italian speaking staff member Mary Ann Benitez,, no answer. L/M asking her to call back to reschedule appt. documented in this encounter Plan of Treatment Upcoming Encounters Date Type Department Care Team (Late st Contact Info) Description 05/07/2024 10:30 AM EDT Medication Management [facility] [address] [place] [address] Puia, Katlyn, PharmD [address] [place] [address] documented as of this encounter Goals Goal [...] documented as of this encounter Care Teams Embedded Systems Engineer Relationship Specialty Start Date End Date Name, MD Kiel [address] [place] [address] PCP - General Family Medicine 07/15/15 Katlyn Rodriguez, PharmD [address] [place] [address] Pharmacist Internal Medicine 10/08/22 Marta Ovalle GalvanizerBriar Shop Supervisor 05/25/23 documented as of this encounter
--- OUTSIDE RECORDS SUMMARY | 2024-03-30 17:35 | XMS_ITS | Encounter Summary ---
Author Organization [facility] Address [address] [place] [address] Care Team Providers Care Aws Consultant Name Role Phone Name, Kiel BAILEY Primary Care Provider Unavailabl e Name, Kiel BAILEY Primary Care Provider Unavailabl e Philly Vela DO Primary Care Pro vider Unavailable Name, Kiel BAILEY Primary Care Provider Unavailabl e Encounter Details Date Type Department Care Team Description 12/12/2012 Full Service Supervisor Report Medical Records [address] [place] [id number] Zack Castro Social History Tobacco Use Types Packs/Day Years [...] on filedocumented in this encounter Care Teams Aws Consultant Relationship Specialty Start Date End Date Kiel Shaffer MD PCP - General 05/26/09 04/27/15 Kiel Shaffer MD PCP - General Internal Medicine 04/28/15 05/05/15 Philly Vela DO PCP - General Internal Medicine 05/06/15 08/27/15 Kiel Shaffer MD PCP - General Internal Medicine 08/28/15 documented as of this encounter
--- OUTSIDE RECORDS SUMMARY | 2024-03-30 17:35 | XMS_ITS | Encounter Summary ---
Author Organization [employer] Address [address] [place] [address] Care Team Providers Care Functional Consultant Name Role Phone Name, Kiel BAILEY Primary Care Provider [phone] Katlyn Rodriguez PharmD Unavailable [phone] Encounter Details Date Type Department Care Team ([facility] st Contact Info) Description 03/30/2024 12:00 PM EST Immunization [facility] [address] [place] [address] Mary Light LPN Encounter for immunization (Primary Dx) Social History Tobacco Use Types [...] AM EDT documented as of this encounter Progress Notes * Mary Light LPN - 03/30/2024 12:00 PM EST Subjective Patient ID: Sarita Puga is a 58 y.o. female who presents here for Tdap vaccine after having received a dog puncture bite on 03/25/2024. Pt was referred to [facility] who directed her to [facility] to obtain vaccine Pt stated that the dog was not up to date on rabies vaccine so was directed to [facility] to be evaluated for rabies post exposure prophylaxis. Pt agreed Pt advised that there may be minor redness/swelling/pain at the injection site. Pt educated as to potential side effects of Tdap vaccine that could include mild fever/headache/ fatigue/nausea vomiting/ diarrhea/stomachaches. Pt expressed understanding that [facility] recommends remaining 15 minutes post- vaccination for observation. documented in this encounter Plan of Treatment Upcoming Encounters Date Type Department Care Team (Late st Contact Info) Description 05/07/2024 10:30 AM EDT Medication Management [facility] [address] [place], [place] [phone] Katlyn Rodriguez, PharmD [address] [place] [address] documented as of this encounter Goals Goal [...] as of this encounter Visit Diagnoses Diagnosis Encounter for immunization- Primary documented in this encounter Additional Health Concerns Assessment Noted Time PHQ-9 Depression Total Score: 4 09/02/19 24 10:30 AM EDT documented as of this encounter Care Teams Functional Consultant Relationship Specialty Start Date End Date Name, MD Kiel [address] [place] [address] PCP - General Family Medicine 07/15/15 Jennifer, Katlyn, PharmD [address] [place] [address] Pharmacist Internal Medicine 10/08/22 Marta Ovalle Fisheries OfficerCapacitor Pack Press Operator 05/25/23 documented as of this encounter
--- OUTSIDE RECORDS SUMMARY | 2024-03-30 17:35 | XMS_ITS | Encounter Summary ---
Author [facility] Address [address] [place] [address] Care Team Providers Care Bias Binding Cutter Name Role Phone Name, Kiel BAILEY Primary Care Provider Unavailabl e Name, Kiel BAILEY Primary Care Provider Unavailabl e Philly Vela DO Primary Care Pro vider Unavailable Name, Kiel BAILEY Primary Care Provider Unavailabl e Encounter Details Date Type Department Care Team Description 12/08/2009 Night Triage Doc Medical Records [address] [place] [id number] Abstract, Provider Social History Tobacco Use Types [...] on filedocumented in this encounter Care Teams Bias Binding Cutter Relationship Specialty Start Date End Date Kiel Shaffer MD PCP - General 05/26/09 04/27/15 Kiel Shaffer MD PCP - General Internal Medicine 04/28/15 05/05/15 Philly Vela DO PCP - General Internal Medicine 05/06/15 08/27/15 Kiel Shaffer MD PCP - General Internal Medicine 08/28/15 documented as of this encounter
[2024-03-30 18:00] VITALS: BP 158/74; PULSE 87; RESP 18
[2024-03-30] MEDS: Doxycycline Monohydrate 100 MG CAPSULE PO (20:05)
[2024-03-30] MEDS: metroNIDAZOLE 500 MG TABLET PO (20:05)
[2024-03-30] MEDS: traMADoL HCL 50 MG TABLET PO (20:05)
[2024-03-30] MEDS: Rabies Vaccine (PCEC)/PF 1 ML VIAL IM (20:07)
[2024-03-30] MEDS: Rabies Immune Globulin/PF 900 UNIT/3 ML VIAL 1800 UNIT IM (20:46)
[2024-03-30] MEDS: Rabies Immune Globulin/PF 300 UNIT/ML VIAL IM (20:52)
[2024-03-30 20:54] VITALS: BP 158/74; PULSE 87; RESP 18; TEMP 37.1; O2SAT 98
== END 2024-03-30 20:55 | disposition home or self-care (01) ==
PROVIDERS: Emergency Provider Emergency Medicine; PCP Internal Medicine Geriatric Medicine
DX: S61.451A Open bite of right hand, initial encounter (principal); M79.641 Pain in right hand; F17.210 Nicotine dependence, cigarettes, uncomplicated; W54.0XXA Bitten by dog, initial encounter; Y93.9 Activity, unspecified; Y92.89 Other specified places as the place of occurrence of the external cause; Y99.8 Other external cause status; Z20.3 Contact with and (suspected) exposure to rabies; Z29.14 Encounter for prophylactic rabies immune globulin; Z79.899 Other long term (current) drug therapy; Z79.4 Long term (current) use of insulin
CPT/HCPCS: 90375; 90471; 90472; 90675; 96372; 99283; 99284

== ENCOUNTER 2024-04-06 13:07 | Emergency (ER) | payer OTHER, MEDICAID, SELFPAY ==
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
[2024-04-06 13:11] VITALS: BP 140/98; PULSE 88; O2SAT 98
[2024-04-06 13:21] VITALS: BP 128/78; PULSE 92; RESP 16; TEMP 36.8; O2SAT 96; BMI 41.1
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
[2024-04-06] MEDS: Morphine Sulfate 4 MG/ML CARTRIDGE IVPUSH (14:14)
[2024-04-06] MEDS: ondansetron HCL 4 MG/2 ML VIAL IVPUSH (14:14)
--- OUTSIDE RECORDS SUMMARY | 2024-04-06 14:33 | XMS_ITS | Clinical Summary ---
Author Organization [facility] Address [address] [place] [address] Care Team Providers Care General Manager Road Production Name Role Phone Name, Kiel BAILEY Primary [...] just unsure what to do Educational Resources [place] [employer] (www.diabetes.org) Centers for Disease Control [...] leg 09/21 Overview: The patient follows with [facility] and is treated with [...] Hx Relation Name Status Comments Brother 1 [place] Brother 2 Alive 6 brothers are diabetic [...] HEPATITIS C SCREENING Completed 10/10/2013 Care Teams [address] Production Relationship Specialty Start Date End Date Name, MD Kiel PCP - General Internal Medicine 08/28/15
--- OUTSIDE RECORDS SUMMARY | 2024-04-06 14:33 | XMS_ITS | Encounter Summary ---
Author Organization [facility] Address [address] [place] [address] Care Team Providers Care Atmospheric Physicist Name Role Phone Name, Kiel BAILEY Primary Care Provider Unavailabl e Name, Kiel BAILEY Primary Care Provider Unavailabl e Philly Vela DO Primary Care Pro vider Unavailable Name, Kiel BAILEY Primary Care Provider Unavailabl e Encounter Details Date Type Department Care Team Description 11/25/2011 Collection Advisor Report Medical Records [address] [place] [id number] Mohini Ellis NP Social History Tobacco Use [...] on filedocumented in this encounter Care Teams Atmospheric Physicist Relationship Specialty Start Date End Date Kiel Shaffer MD PCP - General 05/26/09 04/27/15 Kiel Shaffer MD PCP - General Internal Medicine 04/28/15 05/05/15 Philly Vela DO PCP - General Internal Medicine 05/06/15 08/27/15 Kiel Shaffer MD PCP - General Internal Medicine 08/28/15 documented as of this encounter
--- OUTSIDE RECORDS SUMMARY | 2024-04-06 14:33 | XMS_ITS | Encounter Summary ---
Author Organization [employer] Address [address] [facility] 7[address] [place] [address] Care Team Providers Care Senior Application Security Consultant Name Role Phone Name, Kiel BAILEY Primary Care Provider [phone] Katlyn Rodriguez PharmD Unavailable [phone] Reason for Visit * Reason Onset Date Comments Appointment Request 02/29/2024 Encounter Details Date Type Department Care Team ([facility] Contact Info) Description 02/29/2024 Telephone [facility] MEDICINE [address] [place], [place] [phone] Name, MD Kiel [address] [place] [address] Appointment Request Social History Tobacco Use Types [...] different date and time. Pt does speak puerto rican so you will need an translator and interpreter. documented in this encounter Plan of Treatment Upcoming Encounters Date Type Department Care Team (Late st Contact Info) Description 04/10/2024 9:00 AM EST Clinical Support [facility] MEDICINE [address] [place] [address] Opal Steiner RN 05/07/2024 10:30 AM EDT Medication Management [facility] MEDICINE [address] [place] [address] Katlyn Rodriguez PharmD [address] [place] [address] documented as of this encounter Goals Goal Patient Goal Type Associated Problems Recent Progress Patient-Stated? Author Record your blood pressure once per day Blood Pressure No Katlyn Rodriguez, PharmD Blood Pressure < 140/90 Blood Pressure 113/64(02/04/ 2025 10:47 AM EST) No PuiaKatlyn, PharmD Hemoglobin A1c < 7 Result Component 7.5( 5 10:50 AM EST) No Puia, Katlyn, PharmD Record your blood sugar as directed Result Component No PuiaReidKatlyn, PharmD documented as of this encounter Visit Diagnoses Not on filedocumented in this encounter Additional Health Concerns Assessment Noted Time PHQ-9 Depression Total Score: 4 09/02/19 24 10:30 AM EDT documented as of this encounter Care Teams Senior Application Security Consultant Relationship Specialty Start Date End Date Name, MD Kiel [address] [place] [address] PCP - General Family Medicine 07/15/15 Katlyn Rodriguez, PharmD [address] [place] [address] Pharmacist Internal Medicine 10/08/22 Marta Ovalle Wheel And Axle InspectorScreen Printing Machine Operator Helper 05/25/23 documented as of this encounter
--- OUTSIDE RECORDS SUMMARY | 2024-04-06 14:33 | XMS_ITS | Encounter Summary ---
Author Organization [employer] [facility] Address [address] [place] [address] 7[address] [place] [address] Care Team Providers Care Inverform Machine Operator Name Role Phone Name, Kiel BAILEY Primary Care Provider [phone] Katlyn Rodriguez PharmD Unavailable [phone] Encounter Details Date Type Department Care Team ([facility] Contact Info) Description 07/01/2022 Abstract [facility] MEDICINE [address] [place] [phone] Name, MD Kiel [address] [place] [address] Social History Tobacco Use Types Packs/Day Years [...] Upcoming Encounters Date Type Department Care Team ([facility] Contact Info) Description 04/10/2024 9:00 AM EST Clinical Support [facility] MEDICINE [address] [place] [address] Opal Steiner, RN 05/07/2024 10:30 AM EDT Medication Management [facility] MEDICINE [address] [place] [address] Katlyn Rodriguez PharmD [address] [place] [address] documented as of this encounter Visit Diagnoses Not on filedocumented in this encounter Care Teams Inverform Machine Operator Relationship Specialty Start Date End Date Name, MD Kiel [address] [place] [address] PCP - General Family Medicine 07/15/15 Katlyn Rodriguez PharmD [address] [place] [address] Pharmacist Internal Medicine 10/08/22 Marta Ovalle Improvement EngineerManager Eligibility 05/25/23 documented as of this encounter
--- OUTSIDE RECORDS SUMMARY | 2024-04-06 14:33 | XMS_ITS | Encounter Summary ---
Author Organization [facility] Address [address] [place] [address] Care Team Providers Care Cloth Finishing Range Operator Name Role Phone Name, Kiel BAILEY Primary Care Provider Unavailabl e Name, Kiel BAILEY Primary Care Provider Unavailabl e Philly Vela DO Primary Care Pro vider Unavailable Name, Kiel BAILEY Primary Care Provider Unavailabl e Encounter Details Date Type Department Care Team Description 11/25/2011 Release of Information Medical Records [address] [place] [id number] Abstract, Provider Social History Tobacco Use Types [...] on filedocumented in this encounter Care Teams Cloth Finishing Range Operator Relationship Specialty Start Date End Date Kiel Shaffer MD PCP - General 05/26/09 04/27/15 Kiel Shaffer MD PCP - General Internal Medicine 04/28/15 05/05/15 Philly Vela DO PCP - General Internal Medicine 05/06/15 08/27/15 Kiel Shaffer MD PCP - General Internal Medicine 08/28/15 documented as of this encounter
--- OUTSIDE RECORDS SUMMARY | 2024-04-06 14:33 | XMS_ITS | Encounter Summary ---
Author Organization [employer] Address [address] [place] [address] 7t [place] [address] Care Team Providers Care Tub Operator Name Role Phone Name, Kiel BAILEY Primary Care Provider [phone] Katlyn Rodriguez PharmD Unavailable [phone] Reason for Visit * Reason Comments Med Refill Encounter Details Date Type Department Care Team ([facility] Contact Info) Description 02/10/2022 Refill [facility]S [address] [place], [place] [phone] Name, MD Kiel [address] [place] [address] Chronic pain syndrome (Primary Dx) Social History [...] Upcoming Encounters Date Type Department Care Team ([facility] Contact Info) Description 04/10/2024 9:00 AM EST Clinical Support [facility] MEDICINE [address] [place] [address] Opal Steiner, RN 05/07/2024 10:30 AM EDT Medication Management [facility] MEDICINE [address] [place], [place] [phone] Katlyn Rodriguez PharmD [address] [place] [address] documented as of this encounter Visit Diagnoses Diagnosis Chronic pain syndrome- Primary documented in this encounter Care Teams Tub Operator Relationship Specialty Start Date End Date Name, MD Kiel [address] [place] [address] [phone] PCP - General Family Medicine 07/15/15 Katlyn Rodriguez PharmD [address] [place] [phone] Pharmacist Internal Medicine 10/08/22 Marta Ovalle Costume Rental ClerkBore Mill Operator 05/25/23 documented as of this encounter
--- OUTSIDE RECORDS SUMMARY | 2024-04-06 14:33 | XMS_ITS | Encounter Summary ---
Author Organization [employer] Address [address] [facility] [address] [place] [address] Care Team Providers Care Knife Setter Grinder Machine Name Role Phone Name, Kiel BAILEY Primary Care Provider [phone] Katlyn Rodriguez PharmD Unavailable [phone] Encounter Details Date Type Department Care Team ([facility] Contact Info) Description 03/12/2022 Orders Only [facility] [address] [place], [place] [phone] Millie Sawant LPN Social History Tobacco Use [...] Upcoming Encounters Date Type Department Care Team ([facility] Contact Info) Description 04/10/2024 9:00 AM EST Clinical Support [address] [phone] Opal Steiner RN 05/07/2024 10:30 AM EDT Medication Management [address] [address] Katlyn Rodriguez PharmD [address] [place] [address] documented as of this encounter Visit Diagnoses Not on filedocumented in this encounter Care Teams Knife Setter Grinder Machine Relationship Specialty Start Date End Date Name, MD Kiel [address] [place] [address] PCP - General Family Medicine 07/15/15 Katlyn Rodriguez, AngieD [address] [place] [address] Pharmacist Internal Medicine 10/08/22 Marta Ovalle Meat StockerSeed Buyer 05/25/23 documented as of this encounter
--- OUTSIDE RECORDS SUMMARY | 2024-04-06 14:33 | XMS_ITS | Encounter Summary ---
Author Organization [facility] Address [address] [place] [address] Care Team Providers Care Supervisor Inspection And Testing Name Role Phone Name, Kiel BAILEY Primary Care Provider Unavailabl e NameKiel MD Primary Care Provider Unavailabl e Philly Vela DO Primary Care Pro vider Unavailable Name, Kiel BAILEY Primary Care Provider Unavailabl e Encounter Details Date Type Department Care Team Description 11/09/2011 Telephone Adult [address] [address] Kiel Shaffer MD Social History Tobacco Use [...] filedocumented in this encounter Care Teams Supervisor Inspection And Testing Relationship Specialty Start Date End Date Kiel Shaffer MD PCP - General 05/26/09 04/27/15 Kiel Shaffer MD PCP - General Internal Medicine 04/28/15 05/05/15 Philly Vela DO PCP - General Internal Medicine 05/06/15 08/27/15 Kiel Shaffer MD PCP - General Internal Medicine 08/28/15 documented as of this encounter
--- OUTSIDE RECORDS SUMMARY | 2024-04-06 14:33 | XMS_ITS | Encounter Summary ---
Author Organization [facility] Address [address] [place] [address] Care Team Providers Care Satellite Dish Technician Name Role Phone Name, Kiel BAILEY Primary Care Provider Encounter Details Date Type Department Care Team Description 09/10/2022 Social Work [facility] Oncology Services [address] [place] [address] Adina Archer, [facility] Social [...] on filedocumented in this encounter Care Teams Satellite Dish Technician Relationship Specialty Start Date End Date Name, MD Kiel [address] [place] [address] [address] [place] [address] PCP - General Internal Medicine 04/17/18 documented as of this encounter
--- OUTSIDE RECORDS SUMMARY | 2024-04-06 14:33 | XMS_ITS | Encounter Summary ---
Author Organization [employer] Address [address] [facility] 7t [place] [address] Care Team Providers Care Sales Assistant Displays Name Role Phone Name, Kiel BAILEY Primary Care Provider Katlyn Rodriguez PharmD Unavailable [phone] Reason for Visit * Reason Comments Med Refill Encounter Details Date Type Department Care Team ([facility] st Contact Info) Description 06/27/2023 Refill [facility] MEDICINE [address] [place] [address] Katlyn Rodriguez, PharmD [address] [place] [address] Tobacco use disorder Social History Tobacco Use [...] Description 04/10/2024 9:00 AM EST Clinical Support [address] [address] Opal Steiner RN 05/07/2024 10:30 AM EDT Medication Management [address] [address] Puia, Katlyn, PharmD [address] [place] [address] documented as of this encounter Goals Goal [...] documented as of this encounter Care Teams Sales Assistant Displays Relationship Specialty Start Date End Date Name, MD Kiel [address] [place] [address] PCP - General Family Medicine 07/15/15 Katlyn Rodriguez, Bin [address] [place] [address] Pharmacist Internal Medicine 10/08/22 Marta Ovalle Airbrush Artist PhotographyClinical Informatics Spec 05/25/23 documented as of this encounter
--- OUTSIDE RECORDS SUMMARY | 2024-04-06 14:33 | XMS_ITS | Encounter Summary ---
Author Organization [facility] Address [address] [place] [address] Care Team Providers Care Society Editor Name Role Phone Name, Kiel BAILEY Primary Care Provider Unavailabl e Name, Kiel BAILEY Primary Care Provider Unavailabl e Philly Vela DO Primary Care Pro vider Unavailable Name, Kiel BAILEY Primary Care Provider Unavailabl e Encounter Details Date Type Department Care Team Description 11/24/2011 Process Server Report Medical Records [address] [place] [address] Geovani Nielsen Social History Tobacco Use Types Packs/Day Years [...] on filedocumented in this encounter Care Teams Society Editor Relationship Specialty Start Date End Date Kiel Shaffer MD PCP - General 05/26/09 04/27/15 Kiel Shaffer MD PCP - General Internal Medicine 04/28/15 05/05/15 Philly Vela DO PCP - General Internal Medicine 05/06/15 08/27/15 Kiel Shaffer MD PCP - General Internal Medicine 08/28/15 documented as of this encounter
--- OUTSIDE RECORDS SUMMARY | 2024-04-06 14:33 | XMS_ITS | Encounter Summary ---
Author Organization [employer] Address [address] [facility] 7t [place] [address] Care Team Providers Care Strategic Planning Specialist Name Role Phone Name, Kiel BAILEY Primary Care Provider [phone] Katlyn Rodriguez PharmD Unavailable [phone] Reason for Visit * Reason Comments Med Refill Encounter Details Date Type Department Care Team ([facility] st Contact Info) Description 04/15/2023 Refill [facility] MEDICINE [address] [place] [address] Yaneth Restrepo FNP [address] [place] [address] Diabetes mellitus type 2 in obese (CMS/HCC) [...] Description 04/10/2024 9:00 AM EST Clinical Support [address] [address] Opal Steiner RN 05/07/2024 10:30 AM EDT Medication Management [address] [address] Puia, Katlyn, PharmD [address] [place] [address] documented as of this encounter Goals Goal [...] documented as of this encounter Care Teams Strategic Planning Specialist Relationship Specialty Start Date End Date Name, MD Kiel [address] [place] [address] PCP - General Family Medicine 07/15/15 Katlyn Rodriguez PharmD [address] [place] [address] Pharmacist Internal Medicine 10/08/22 Marta Ovalle Fill TechnicianSales Attendant 05/25/23 documented as of this encounter
--- OUTSIDE RECORDS SUMMARY | 2024-04-06 14:33 | XMS_ITS | Encounter Summary ---
Author Organization [facility] Address [address] [place] [address] Care Team Providers Care Medical Practice Assistant Name Role Phone Name, Kiel BAILEY Primary Care Provider Unavailabl e Name, Kiel BAILEY Primary Care Provider Unavailabl e Philly Vela DO Primary Care Pro vider Unavailable Name, Kiel BAILEY Primary Care Provider Unavailabl e Encounter Details Date Type Department Care Team Description 08/13/2011 Hospital Medical Records [address] [place] [address] Marcia Wan MD Social History Tobacco Use [...] on filedocumented in this encounter Care Teams Medical Practice Assistant Relationship Specialty Start Date End Date Kiel Shaffer MD PCP - General 05/26/09 04/27/15 Kiel Shaffer MD PCP - General Internal Medicine 04/28/15 05/05/15 Philly Vela DO PCP - General Internal Medicine 05/06/15 08/27/15 Kiel Shaffer MD PCP - General Internal Medicine 08/28/15 documented as of this encounter
--- OUTSIDE RECORDS SUMMARY | 2024-04-06 14:33 | XMS_ITS | Encounter Summary ---
Author Organization [employer] Address [address] [facility] 7t [place] [address] Care Team Providers Care Field Irrigation Worker Name Role Phone Name, Kiel BAILEY Primary Care Provider [phone] Katlyn Rodriguez PharmD Unavailable [phone] Reason for Visit * Reason Comments Med Refill Encounter Details Date Type Department Care Team ([facility] st Contact Info) Description 09/07/[address] [facility] MED & PEDS [address] [place], [place] [phone] Name, MD Kiel [address] [place] [address] Type 2 diabetes mellitus with other specified [...] Description 04/10/2024 9:00 AM EST Clinical Support [facility] MEDICINE [address] [place] [address] Opal Steiner RN 05/07/2024 10:30 AM EDT Medication Management [facility] MEDICINE [address] [place] [address] Puia, Katlyn, PharmD [address] [place] [address] documented as of this encounter Goals Goal [...] documented as of this encounter Care Teams Field Irrigation Worker Relationship Specialty Start Date End Date Name, MD Kiel [address] [place] [address] PCP - General Family Medicine 07/15/15 Katlyn Rodriguez, Bin [address] [place] [address] Pharmacist Internal Medicine 10/08/22 Marta Ovalle Beer BrewerProfessor Of Theatre 05/25/23 documented as of this encounter
--- OUTSIDE RECORDS SUMMARY | 2024-04-06 14:33 | XMS_ITS | Encounter Summary ---
Author Organization [employer] Address [address] [facility] 7t [place] [address] Care Team Providers Care Employment Instructional Associate Name Role Phone Name, Kiel BAILEY Primary Care Provider Katlyn Rodriguez PharmD Unavailable [phone] Reason for Visit * Reason Onset Date Comments Medication Problem 08/30/2023 Encounter Details Date Type Department Care Team ([facility] Contact Info) Description 08/30/[address] [facility] MEDICINE [address] [place], [place] [phone] Name, MD Kiel [address] [place] [address] Medication Problem Social History Tobacco Use Types [...] Description 04/10/2024 9:00 AM EST Clinical Support [facility] MEDICINE [address] [place] [address] Opal Steiner RN 05/07/2024 10:30 AM EDT Medication Management [facility] MEDICINE [address] [place] [address] PuiaReidKatlyn, PharmD [address] [place] [address] documented as of this encounter Goals Goal [...] documented as of this encounter Care Teams Employment Instructional Associate Relationship Specialty Start Date End Date Name, MD Kiel [address] [place] [address] PCP - General Family Medicine 07/15/15 Katlyn Rodriguez, PharmD [address] [place] [address] Pharmacist Internal Medicine 10/08/22 Marta Ovalle Vibration AnalystSoldering Technician 05/25/23 documented as of this encounter
--- OUTSIDE RECORDS SUMMARY | 2024-04-06 14:33 | XMS_ITS | Encounter Summary ---
Author Organization [facility] Address [address] [place] [address] Care Team Providers Care Furnace Puncher Name Role Phone NameKiel MD Primary Care Provider Unavailabl e Encounter Details Date Type Department Care Team Description 12/12/2015 Transfer Records Medical Records [address] [place] [address] Balaji Johnson DO Social History Tobacco Use [...] on filedocumented in this encounter Care Teams Furnace Puncher Relationship Specialty Start Date End Date Name, MD Kiel PCP - General Internal Medicine 08/28/15 documented as of this encounter
--- OUTSIDE RECORDS SUMMARY | 2024-04-06 14:33 | XMS_ITS | Encounter Summary ---
Author Organization [facility] Address [address] [place] [address] Care Team Providers Care Student Affairs Vice President Name Role Phone Name, Kiel BAILEY Primary Care Provider Unavailabl e Name, Kiel BAILEY Primary Care Provider Unavailabl e Philly Vela DO Primary Care Pro vider Unavailable Name, Kiel BAILEY Primary Care Provider Unavailabl e Encounter Details Date Type Department Care Team Description 03/02/2012 Hospital Medical Records [address] [place] [address] Kaylynn Mahmood MD Social History Tobacco Use [...] on filedocumented in this encounter Care Teams Student Affairs Vice President Relationship Specialty Start Date End Date Kiel Sahffer MD PCP - General 05/26/09 04/27/15 Kiel Shaffer MD PCP - General Internal Medicine 04/28/15 05/05/15 Philly Vela DO PCP - General Internal Medicine 05/06/15 08/27/15 Kiel Shaffer MD PCP - General Internal Medicine 08/28/15 documented as of this encounter
--- OUTSIDE RECORDS SUMMARY | 2024-04-06 14:33 | XMS_ITS | Encounter Summary ---
Author Organization [employer] Address [address] [facility] 7t [place] [address] Care Team Providers Care Flat Knitter Helper Name Role Phone Name, Kiel BAILEY Primary Care Provider [phone] Katlyn Rodriguez PharmD Unavailable [phone] Reason for Visit * Reason Onset Date Comments Reschedule 08/01/2023 Encounter Details Date Type Department Care Team ([facility] st Contact Info) Description 08/01/2023 Telephone [facility] MEDICINE [address] [place] [address] Name, MD Kiel [address] [place] [address] Reschedule Social History Tobacco Use Types Packs/Day [...] 08/01/2023 9:55 AM EDT Triage call with [facility] [place] [id number] . Pt reports Covid + test this [...] 08/01/2023 9:04 AM EDT Patient cancelled todays METAL MOULDER RV appt today. Pt's METAL MOULDER appt has been rescheduled for chronic pain [...] AM EDT Tc from pt requesting r/s METAL MOULDER appt, stated is sick and suspect is COVID documented in this encounter Plan of Treatment Upcoming Encounters Date Type Department Care Team (Late st Contact Info) Description 04/10/2024 9:00 AM EST Clinical Support [facility] MEDICINE [address] [place] [address] Opal Steiner RN 05/07/2024 10:30 AM EDT Medication Management [facility] MEDICINE [address] [place] [address] Katlyn Rodriguez PharmD [address] [place] [address] documented as of this encounter Goals Goal [...] documented as of this encounter Care Teams Flat Knitter Helper Relationship Specialty Start Date End Date Name, MD Kiel [address] [place] [address] PCP - General Family Medicine 07/15/15 Adenia, Katlyn, PharmD [address] [place] [address] Pharmacist Internal Medicine 10/08/22 Marta Ovalle Director Of Exhibit DevelopmentTraffic Warehouse Supervisor 05/25/23 documented as of this encounter
--- OUTSIDE RECORDS SUMMARY | 2024-04-06 14:33 | XMS_ITS | Encounter Summary ---
Author Organization [facility] Address [address] [place] [address] Care Team Providers Care Financial Reporting Advisor Name Role Phone Name, Kiel BAILEY Primary Care Provider Unavailabl e Name, Kiel BAILEY Primary Care Provider Unavailabl e Philly Vela DO Primary Care Pro vider Unavailable Name, Kiel BAILEY Primary Care Provider Unavailabl e Encounter Details Date Type Department Care Team Description 08/18/2011 Hospital Medical Records [address] [place] [address] Hever Bush Social History Tobacco Use Types Packs/Day Years [...] on filedocumented in this encounter Care Teams Financial Reporting Advisor Relationship Specialty Start Date End Date Kiel Shaffer MD PCP - General 05/26/09 04/27/15 Kiel Shaffer MD PCP - General Internal Medicine 04/28/15 05/05/15 Philly Vela DO PCP - General Internal Medicine 05/06/15 08/27/15 Kiel Shaffer MD PCP - General Internal Medicine 08/28/15 documented as of this encounter
--- OUTSIDE RECORDS SUMMARY | 2024-04-06 14:33 | XMS_ITS | Encounter Summary ---
Author Organization [facility] Address [address] [place] [address] Care Team Providers Care Lining Parts Sewer Name Role Phone Name, Kiel BAILEY Primary Care Provider Unavailabl e Name, Kiel BAILEY Primary Care Provider Unavailabl e Philly Vela DO Primary Care Pro vider Unavailable Name, Kiel BAILEY Primary Care Provider Unavailabl e Encounter Details Date Type Department Care Team Description 10/31/2009 Hospital Medical Records [address] [place] [address] Hever Bush Social History Tobacco Use Types [...] on filedocumented in this encounter Care Teams Lining Parts Sewer Relationship Specialty Start Date End Date Kiel Shaffer MD PCP - General 05/26/09 04/27/15 Kiel Shaffer MD PCP - General Internal Medicine 04/28/15 05/05/15 Philly Vela DO PCP - General Internal Medicine 05/06/15 08/27/15 Kiel Shaffer MD PCP - General Internal Medicine 08/28/15 documented as of this encounter
--- OUTSIDE RECORDS SUMMARY | 2024-04-06 14:33 | XMS_ITS | Encounter Summary ---
Author Organization [employer] Address [address] [place] [address] 7t [place] [address] Care Team Providers Care Colorist Dyer Name Role Phone Name, Kiel BAILEY Primary Care Provider [phone] Katlyn Rodriguez PharmD Unavailable [phone] Encounter Details Date Type Department Care Team ([facility] Contact Info) Description 02/23/2022 Orders Only [facility] [address] [place] [address] Name, MD Kiel [address] [place] [address] Social History Tobacco Use Types Packs/Day Years [...] Upcoming Encounters Date Type Department Care Team ([facility] Contact Info) Description 04/10/2024 9:00 AM EST Clinical Support [facility] MEDICINE [address] [place], [place] [phone] Opal Steiner RN 05/07/2024 10:30 AM EDT Medication Management [facility] MEDICINE [address] [place] [address] Katlyn Rodriguez PharmD [address] [place] [address] documented as of this encounter Visit Diagnoses Not on filedocumented in this encounter Care Teams Colorist Dyer Relationship Specialty Start Date End Date Name, MD Kiel [address] [place] [address] PCP - General Family Medicine 07/15/15 Katlyn Rodriguez PharmD [address] [place] [address] Pharmacist Internal Medicine 10/08/22 Marta Ovalle Resource Management PlannerDisintegrator Operator 05/25/23 documented as of this encounter
--- OUTSIDE RECORDS SUMMARY | 2024-04-06 14:33 | XMS_ITS | Encounter Summary ---
Author Organization [employer] [facility] Address [address] [place] [address] 7t [place] [address] Care Team Providers Care Culture Manager Name Role Phone Name, Kiel BAILEY Primary Care Provider [phone] Katlyn Rodriguez PharmD Unavailable [phone] Reason for Visit * Reason Comments Med Refill Encounter Details Date Type Department Care Team (Late Contact Info) Description 07/02/2022 Refill [facility] MEDICINE [address] [place] [address] Name, MD Kiel [address] [place] [address] Chronic pain syndrome Social History Tobacco Use [...] Encounters Date Type Department Care Team ([facility] Contact Info) Description 04/10/2024 9:00 AM EST Clinical Support [facility] MEDICINE [address] [place] [address] Opal Steiner RN 05/07/2024 10:30 AM EDT Medication Management [facility] MEDICINE [address] [place], [place] [phone] Katlyn Rodriguez PharmD [address] [place] [address] documented as of this encounter Visit Diagnoses Diagnosis Chronic pain syndrome documented in this encounter Care Teams Culture Manager Relationship Specialty Start Date End Date Name, MD Kiel [address] [place] [address] PCP - General Family Medicine 07/15/15 Katlyn Rodriguez PharmD [address] [place] [address] Pharmacist Internal Medicine 10/08/22 Marta Ovalle Bearing GrinderPastry Wrapper 05/25/23 documented as of this encounter
--- OUTSIDE RECORDS SUMMARY | 2024-04-06 14:33 | XMS_ITS | Encounter Summary ---
Author Organization [employer] [facility] Address [address] [place] [address] 7t [place] [address] Care Team Providers Care Loan Manager Name Role Phone Name, Kiel BAILEY Primary Care Provider [phone] Katlyn Rodriguez PharmD Unavailable [phone] Reason for Visit * Reason Comments Med Refill Encounter Details Date Type Department Care Team (Late Contact Info) Description 06/28/2022 Refill [facility] MEDICINE [address] [place] [address] Name, MD Kiel [address] [place] [address] Chronic pain syndrome Social History Tobacco Use [...] Upcoming Encounters Date Type Department Care Team ([facility] Contact Info) Description 04/10/2024 9:00 AM EST Clinical Support [facility] MEDICINE [address] [place] [address] Opal Steiner RN 05/07/2024 10:30 AM EDT Medication Management [facility] MEDICINE [address] [place], [place] [phone] Katlyn Rodriguez PharmD [address] [place] [address] documented as of this encounter Visit Diagnoses Diagnosis Chronic pain syndrome documented in this encounter Care Teams Loan Manager Relationship Specialty Start Date End Date Name, MD Kiel [address] [place] [address] PCP - General Family Medicine 07/15/15 Katlyn Rodriguez PharmD [address] [place] [address] Pharmacist Internal Medicine 10/08/22 Marta Ovalle Health CompanionCement Based Materials Pump Tender 05/25/23 documented as of this encounter
--- OUTSIDE RECORDS SUMMARY | 2024-04-06 14:33 | XMS_ITS | Encounter Summary ---
Author Organization [facility] Address [address] [place] [address] Care Team Providers Care Avionics Safety Inspector Name Role Phone NameKiel MD Primary Care Provider Unavailabl e Encounter Details Date Type Department Care Team Description 04/03/2016 Release of Information Medical Records [address] [place] [address] Abstract, Provider Social History Tobacco Use Types [...] on filedocumented in this encounter Care Teams Avionics Safety Inspector Relationship Specialty Start Date End Date Name, MD Kiel PCP - General Internal Medicine 08/28/15 documented as of this encounter
--- OUTSIDE RECORDS SUMMARY | 2024-04-06 14:33 | XMS_ITS | Clinical Summary ---
Author Organization [facility] Address [address] [place] [address] Care Team Providers Care Stabilizer Operator Name Role Phone Name, Kiel BAILEY Primary Care Provider [phone] Allergies Active Allergy Reactions Criticality Noted Date [...] age to complete this topic Care Teams Stabilizer Operator Relationship Specialty Start Date End Date Name, MD Kiel [address] [facility] [address] [place] [address] PCP - General Internal Medicine 04/17/18
--- OUTSIDE RECORDS SUMMARY | 2024-04-06 14:33 | XMS_ITS | Encounter Summary ---
Author Organization [employer] [facility] Address [address] [place] [address] 7t [place] [address] Care Team Providers Care Plan Nurse Name Role Phone Name, Kiel BAILEY Primary Care Provider [phone] Katlyn Rodriguez PharmD Unavailable Reason for Visit * Reason Comments Med Refill Encounter Details Date Type Department Care Team ([facility] Contact Info) Description 07/16/2022 Refill [facility] MEDICINE [address] [place] [address] Name, MD Kiel [address] [place] [address] Chronic pain syndrome Social History Tobacco Use [...] Upcoming Encounters Date Type Department Care Team ([facility] st Contact Info) Description 04/10/2024 9:00 AM EST Clinical Support [facility] MEDICINE [address] [place] [address] Opal Steiner RN 05/07/2024 10:30 AM EDT Medication Management [address] [address] Katlyn Rodriguez PharmD [address] [place] [address] documented as of this encounter Visit Diagnoses Diagnosis Chronic pain syndrome documented in this encounter Additional Health Concerns Assessment Noted Time PHQ-9 Depression Total Score: 7 07/15/19 23 2:39 PM EDT documented as of this encounter Care Teams Plan Nurse Relationship Specialty Start Date End Date Name, MD Kiel [address] [place] [address] PCP - General Family Medicine 07/15/15 Katlyn Rodriguez, PharmSusan [address] [place] [address] Pharmacist Internal Medicine 10/08/22 Marta Ovalle Braiding OperatorBankruptcy Manager 05/25/23 documented as of this encounter
--- OUTSIDE RECORDS SUMMARY | 2024-04-06 14:33 | XMS_ITS | Encounter Summary ---
Author Organization [employer] [facility] Address [address] [place] [address] 7t [place] [address] Care Team Providers Care Chemical Plant Operator Name Role Phone Name, Kiel BAILEY Primary Care Provider [phone] Katlyn Rodriguez PharmD Unavailable [phone] Reason for Visit * Reason Comments Med Refill Encounter Details Date Type Department Care Team (Late Contact Info) Description 04/25/2022 Refill [facility] MEDICINE [address] [place] [address] Name, MD Kiel [address] [place] [address] Diabetes mellitus type 2 in obese (CMS/HCC) [...] Upcoming Encounters Date Type Department Care Team ([facility] Contact Info) Description 04/10/2024 9:00 AM EST Clinical Support [facility] MEDICINE [address] [place] [address] Opal Steiner, RN 05/07/2024 10:30 AM EDT Medication Management [address] [address] Katlyn Rodriguez PharmD [address] [place] [address] documented as of this encounter Visit Diagnoses Diagnosis Diabetes mellitus type 2 in obese- Primary Type II or unspecified type diabetes mellitus without mention of complication, not stated as uncontrolled documented in this encounter Care Teams Chemical Plant Operator Relationship Specialty Start Date End Date Name, MD Kiel [address] [place] [address] PCP - General Family Medicine 07/15/15 Katlyn Rodriguez PharmD [address] [place] [address] Pharmacist Internal Medicine 10/08/22 Marta Ovalle Antenna InstallerDirector Of Acquisition Marketing 05/25/23 documented as of this encounter
--- OUTSIDE RECORDS SUMMARY | 2024-04-06 14:33 | XMS_ITS | Encounter Summary ---
Author Organization [facility] Address [address] [place] [address] Care Team Providers Care Application Project Leader Name Role Phone Name, Kiel BAILEY Primary Care Provider Unavailabl e Name, Kiel BAILEY Primary Care Provider Unavailabl e Philly Vela DO Primary Care Pro vider Unavailable Name, Kiel BAILEY Primary Care Provider Unavailabl e Encounter Details Date Type Department Care Team Description 05/29/2009 Resistor Tester Report Medical Records [address] [place] [address] Jourdan Irizarry DNP Social History Tobacco Use Types Packs/Day Years Used Date Smoking Tobacco: Never Assessed Sex Assigned at Date Recorded Not on file documented as of this encounter Plan of Treatment Not on file documented as of this encounter Visit Diagnoses Not on filedocumented in this encounter Care Teams Application Project Leader Relationship Specialty Start Date End Date Kiel Shaffer MD PCP - General 05/26/09 04/27/15 Kiel Shaffer MD PCP - General Internal Medicine 04/28/15 05/05/15 Philly Vela DO PCP - General Internal Medicine 05/06/15 08/27/15 Kiel Shaffer MD PCP - General Internal Medicine 08/28/15 documented as of this encounter
--- OUTSIDE RECORDS SUMMARY | 2024-04-06 14:33 | XMS_ITS | Encounter Summary ---
Author Organization [facility] Address [address] [place] [address] Care Team Providers Care Hourly Team Members Name Role Phone Name, Kiel BAILEY Primary Care Provider Unavailabl e Name, Kiel BAILEY Primary Care Provider Unavailabl e Phlily Vela DO Primary Care Pro vider Unavailable Name, Kiel BAILEY Primary Care Provider Unavailabl e Reason for Visit * Reason Onset Date Comments Follow-up Appt Unavailable 08/19/2011 Encounter Details Date Type Department Care Team Description 08/19/2011 Telephone Adult Medicine [address] [address] Name, MD Kiel Follow-up Appt Unavailable Social [...] Symptoms patient is presenting: patient admitted to [facility] 08/11-08/17 For sob and lung infection/she would like to see dr santiago only How long has patient had these symptoms?: admitted 1week PCP: Kiel Santiago MD Payor: [facility] Plan: FFS HMO $0 [place] [id number] Product Type: MEDICAID RISK documented in this encounter Plan of Treatment Not on file documented as of this encounter Visit Diagnoses Not on filedocumented in this encounter Care Teams Hourly Team Members Relationship Specialty Start Date End Date Kiel Santiago MD PCP - General 05/26/09 04/27/15 Kiel Santiago MD PCP - General Internal Medicine 04/28/15 05/05/15 Philly Vela DO PCP - General Internal Medicine 05/06/15 08/27/15 Kiel Santiago MD PCP - General Internal Medicine 08/28/15 documented as of this encounter
--- OUTSIDE RECORDS SUMMARY | 2024-04-06 14:33 | XMS_ITS | Encounter Summary ---
Author Organization [employer] [facility] Address [address] 7t [place] [address] Care Team Providers Care Information Technology Advisor Name Role Phone Name, Kiel BAILEY Primary Care Provider [phone] Katlyn Rodriguez PharmD Unavailable [phone] Reason for Visit * Reason Onset Date Comments Referral 04/06/2024 Patient walked i n stating the referral pcp sent on 03/28/2024 needs to be changed to physical therapy not chiropractic. Patient said she went to the office [address] [place] [address] and they said it needs to be changed to physical therapy. Encounter Details Date Type Department Care Team (Late st Contact Info) Description 04/06/2024 Telephone [facility] [address] [place], [place] [phone] Name, MD Kiel [address] [place], [place] [phone] Referral (Patient walked in stating the referral pcp sent on 03/28/2024 needs to be changed to physical therapy not chiropractic. Patient said she went to the office [address] [place] [address] and they said it needs to be changed to physical therapy. ) Social History Tobacco Use Types Packs/Day Years [...] encounter Miscellaneous Notes * Telephone Encounter - Hetal Ovalle - 04/06/2024 9:18 AM EST Patient walked in stating the referral pcp sent on 03/28/2024 needs to be changed to physical therapy not chiropractic. Patient said she went to the office [address] [place] [address] and they said it needs to be changed to physical therapy. documented in this encounter Plan of Treatment Upcoming Encounters Date Type Department Care Team (Late st Contact Info) Description 04/10/2024 9:00 AM EST Clinical Support [facility] [address] [place] [address] Opal Steiner RN 05/07/2024 10:30 AM EDT Medication Management [facility] [address] [place] [address] Katlyn Rodriguez PharmD [address] [place] [address] documented as of this encounter Goals Goal Patient Goal Type Associated Problems Recent Progress Patient-Stated? Author Record your blood pressure once per day Blood Pressure No PuiaReidKatlyn, PharmD Blood Pressure < 140/90 Blood Pressure [...] documented as of this encounter Care Teams Information Technology Advisor Relationship Specialty Start Date End Date Name, MD Kiel [address] [place] [address] PCP - General Family Medicine 07/15/15 Katlyn Rodriguez, PharmD [address] [place] [address] Pharmacist Internal Medicine 10/08/22 Marta Ovalle Primary Special Education TeacherDuct Maker 05/25/23 documented as of this encounter
--- OUTSIDE RECORDS SUMMARY | 2024-04-06 14:33 | XMS_ITS | Encounter Summary ---
Author Organization [facility] Address [address] [place] [address] Care Team Providers Care Registered Nurse Teacher Name Role Phone Name, Kiel BAILEY Primary Care Provider Unavailabl e Name, Kiel BAILEY Primary Care Provider Unavailabl e Philly Vela DO Primary Care Pro vider Unavailable Name, Kiel BAILEY Primary Care Provider Unavailabl e Encounter Details Date Type Department Care Team Description 03/24/2012 Transfer Records Medical Records [address] [place] [address] Abstract, Provider Social History Tobacco Use Types [...] on filedocumented in this encounter Care Teams Registered Nurse Teacher Relationship Specialty Start Date End Date Kiel Shaffer MD PCP - General 05/26/09 04/27/15 Kiel Shaffer MD PCP - General Internal Medicine 04/28/15 05/05/15 Philly Vela DO PCP - General Internal Medicine 05/06/15 08/27/15 Kiel Shaffer MD PCP - General Internal Medicine 08/28/15 documented as of this encounter
--- OUTSIDE RECORDS SUMMARY | 2024-04-06 14:33 | XMS_ITS | Encounter Summary ---
Author Organization [employer] Address [address] [facility] 7t [place] [address] Care Team Providers Care Curing Finisher Name Role Phone Name, Kiel BAILEY Primary Care Provider [phone] Katlyn Rodriguez PharmD Unavailable [phone] Reason for Visit * Reason Onset Date Comments [facility] 04/02/2024 Disposable unde rpad / chux pad largeGloves N-steril per (bx) Encounter Details Date Type Department Care Team (Late st Contact Info) Description 04/02/2024 Telephone [facility] [address] [place] [address] Name, MD Kiel [address] [place] [address] [facility] (Disposable underpad / chux pad large/Gloves N-steril per (bx)) Social History Tobacco Use Types Packs/Day Years [...] encounter Miscellaneous Notes * Telephone Encounter - Elijah Troy [place] - 04/03/2024 11:52 AM EST Medical necessity form has been signed by the PCP and faxed to [employer]. Form has been sent in for scanning. * Telephone Encounter - Elijah Troy MA - 04/02/2024 10:39 AM EST Received medical necessity form from [employer] for Disposable underpad / chux pad large, Gloves N-steril per (bx). Form has been filled out and placed on PCP's desk for signature. documented in this encounter Plan of Treatment Upcoming Encounters Date Type Department Care Team (Late st Contact Info) Description 04/10/2024 9:00 AM EST Clinical Support [facility] MEDICINE [address] [place] [address] [phone] Opal Steiner RN 05/07/2024 10:30 AM EDT Medication Management [facility]INE [address] [place] [address] PuKatlyn albert, PharmD [address] [place] [address] documented as of this encounter Goals Goal [...] documented as of this encounter Care Teams Curing Finisher Relationship Specialty Start Date End Date Name, MD Kiel [address] [place] [address] PCP - General Family Medicine 07/15/15 Katlyn Rodriguez, PharmD [address] [place] [address] Pharmacist Internal Medicine 10/08/22 Marta Ovalle Electrical Prospecting SupervisorPhotographic Laboratory Technician 05/25/23 documented as of this encounter
--- OUTSIDE RECORDS SUMMARY | 2024-04-06 14:33 | XMS_ITS | Encounter Summary ---
Author Organization [employer] [facility] Address [address] [place] [address] 7t [place] [address] Care Team Providers Care Engineering Coordinator Name Role Phone Name, Kiel BAILEY Primary Care Provider [phone] Katlyn Rodriguez PharmD Unavailable [phone] Encounter Details Date Type Department Care Team ([facility] Contact Info) Description 07/01/2022 Abstract [facility] [address] [place] [phone] Name, MD Kiel [address] [place] [address] Social History Tobacco Use Types Packs/Day Years [...] [facility] Contact Info) Description 04/10/2024 9:00 AM EST Clinical Support [facility] [address] [place] [address] Opal Steiner, MARINA 05/07/2024 10:30 AM EDT Medication Management [facility] [address] [place] [address] Katlyn Rodriguez PharmD [address] [place] [address] documented as of this encounter Procedures Procedure Name Priority Date/Time Associated Diagnosis Comments COLONOSCOPY Routine 07/01/2022 4:37 PM EDT documented in this encounter Results * Colonoscopy (07/01/2022 4:37 PM EDT) Colonoscopy Normal Normal Narrative Emely Devine - 07/01/2022 4:37 PM EDT Recommended 5 [place] Historical Provider HEALTH MAINTENANCE Final Result documented in this encounter Visit Diagnoses Not on filedocumented in this encounter Care Teams Engineering Coordinator Relationship Specialty Start Date End Date Name, [place] [address] PCP - General Family Medicine 07/15/15 Katlyn Rodriguez PharmD [address] [place] [address] Pharmacist Internal Medicine 10/08/22 Marta Ovalle Electrical Electronics EngineersPrivate Sector Executive 05/25/23 documented as of this encounter
--- OUTSIDE RECORDS SUMMARY | 2024-04-06 14:34 | XMS_ITS | Encounter Summary ---
Author Organization [employer] Address [address] [facility] 7t [place] [address] Care Team Providers Care Telephone Collector Name Role Phone Name, Kiel BAILEY Primary Care Provider [phone] Katlyn Rodriguez PharmD Unavailable [phone] Reason for Visit * Reason Onset Date Comments Reschedule EXPLORATION DRILLER R V appt from 03/26/24 03/27/2024 Encounter Details Date Type Department Care Team (Late st Contact Info) Description 03/27/2024 Telephone [facility] [address] [place] [address] Opal Steiner, RN Reschedule EXPLORATION DRILLER R V appt from 03/26/24 Social History [...] - 03/27/2024 2:49 PM EST TC via maltese speaking staff member Mary Ann Benitez,, no answer. L/M asking her to call back to reschedule appt. documented in this encounter Plan of Treatment Upcoming Encounters Date Type Department Care Team (Late st Contact Info) Description 04/10/2024 9:00 AM EST Clinical Support [facility] [address] [place] [address] Opal Steiner RN 05/07/2024 10:30 AM EDT Medication Management [facility] [address] [place] [address] Puia, Katlyn, PharmD [address] [place] [address] documented as of this encounter Goals Goal [...] documented as of this encounter Care Teams Telephone Collector Relationship Specialty Start Date End Date Name, MD Kiel [address] [place] [address] PCP - General Family Medicine 07/15/15 Katlyn Rodriguez, AngieD [address] [place] [address] Pharmacist Internal Medicine 10/08/22 Marta Ovalle Predatory Game HunterHarvesting Contractor 05/25/23 documented as of this encounter
--- OUTSIDE RECORDS SUMMARY | 2024-04-06 14:34 | XMS_ITS | Encounter Summary ---
Author Organization [facility] Address [address] [place] [address] Care Team Providers Care Automobile Rental Clerk Name Role Phone Name, Kiel BAILEY Primary Care Provider Unavailabl e Name, Kiel BAILEY Primary Care Provider Unavailabl e Philly Vela DO Primary Care Pro vider Unavailable Name, Kiel BAILEY Primary Care Provider Unavailabl e Encounter Details Date Type Department Care Team Description 05/04/2011 Product Development Manager Report Medical Records [address] [place] [address] Mohini Ellis NP Social History Tobacco Use Types Packs/Day Years Used Date Smoking Tobacco: Former Cigarettes 0.3 15 Smokeless Tobacco: Never Comments:quit 3 weeks ago Alcohol Use Standard Drinks/Week Comments No 0 (1 standard drink = 0.6 oz pur e alcohol) Sex Assigned at Date Recorded Not on file documented as of this encounter Plan of Treatment Not on file documented as of this encounter Visit Diagnoses Not on filedocumented in this encounter Care Teams Automobile Rental Clerk Relationship Specialty Start Date End Date Kiel Shaffer MD PCP - General 05/26/09 04/27/15 Kiel Shaffer MD PCP - General Internal Medicine 04/28/15 05/05/15 Philly Vela DO PCP - General Internal Medicine 05/06/15 08/27/15 Kiel Shaffer MD PCP - General Internal Medicine 08/28/15 documented as of this encounter
--- OUTSIDE RECORDS SUMMARY | 2024-04-06 14:34 | XMS_ITS | Encounter Summary ---
Author Organization [employer] [facility] Address [address] [place] [address] 7t [place] [address] Care Team Providers Care Auto Phone Installer Name Role Phone Name, Kiel BAILEY Primary Care Provider [phone] Katlyn Rodriguez PharmD Unavailable [phone] Encounter Details Date Type Department Care Team (Late Contact Info) Description 08/26/[address] [facility] [address] [place] [address] Leia Gonzales LPN Social History Tobacco [...] Department Care Team (Late Contact Info) Description 04/10/2024 9:00 AM EST Clinical Support [facility] [address] [place] [address] [phone] Opal Steiner, RN 05/07/2024 10:30 AM EDT Medication Management [facility] [address] [place] [address] Katlyn Rodriguez PharmD [address] [place] [address] documented as of this encounter Visit Diagnoses Not on filedocumented in this encounter Additional Health Concerns Assessment Noted Time PHQ-9 Depression Total Score: 7 07/15/19 23 2:39 PM EDT documented as of this encounter Care Teams Auto Phone Installer Relationship Specialty Start Date End Date Name, MD Kiel [address] [place] [address] PCP - General Family Medicine 07/15/15 Katlyn Rodriguez PharmD [address] [place] [address] Pharmacist Internal Medicine 10/08/22 Marta Ovalle Cable TenderSkeet Operator 05/25/23 documented as of this encounter
--- OUTSIDE RECORDS SUMMARY | 2024-04-06 14:34 | XMS_ITS | Encounter Summary ---
Author Organization [facility] Address [address] [place] [address] Care Team Providers Care Care Program Director Name Role Phone Name, Kiel BAILEY Primary Care Provider Unavailabl e Name, Kiel BAILEY Primary Care Provider Unavailabl e Philly Vela DO Primary Care Pro vider Unavailable Name, Kiel BAILEY Primary Care Provider Unavailabl e Encounter Details Date Type Department Care Team Description 03/26/2011 Eye Agricultural Technical Officer Report Medical Records [address] [place] [address] Fei Armstrong Social History Tobacco Use Types Packs/Day Years [...] on filedocumented in this encounter Care Teams Care Program Director Relationship Specialty Start Date End Date Deena, MD Kiel PCP - General 05/26/09 04/27/15 Kiel Shaffer MD PCP - General Internal Medicine 04/28/15 05/05/15 Philly Vela DO PCP - General Internal Medicine 05/06/15 08/27/15 Kiel Shaffer MD PCP - General Internal Medicine 08/28/15 documented as of this encounter
--- OUTSIDE RECORDS SUMMARY | 2024-04-06 14:34 | XMS_ITS | Encounter Summary ---
Author Organization [facility] Address [address] [place] [address] Care Team Providers Care Machine Fitter Name Role Phone Name, Kiel BAILEY Primary Care Provider Unavailabl e Name, Kiel BAILEY Primary Care Provider Unavailabl e Philly Vela DO Primary Care Pro vider Unavailable Name, Kiel BAILEY Primary Care Provider Unavailabl e Encounter Details Date Type Department Care Team Description 08/13/2010 Auto Engine Mechanic Report Medical Records [address] [place] [address] Shon Blanca Social History Tobacco Use Types [...] filedocumented in this encounter Care Teams Machine Fitter Relationship Specialty Start Date End Date Deena, MD Kiel PCP - General 05/26/09 04/27/15 Kiel Shaffer MD PCP - General Internal Medicine 04/28/15 05/05/15 Philly Vlea DO PCP - General Internal Medicine 05/06/15 08/27/15 Kiel Shaffer MD PCP - General Internal Medicine 08/28/15 documented as of this encounter
--- OUTSIDE RECORDS SUMMARY | 2024-04-06 14:34 | XMS_ITS | Encounter Summary ---
Author Organization [facility] Address [address] [place] [address] Care Team Providers Care Container Shop Welder Name Role Phone Name, Kiel BAILEY Primary Care Provider Unavailabl e Name, Kiel BAILEY Primary Care Provider Unavailabl e Philly Vela DO Primary Care Pro vider Unavailable Name, Kiel BAILEY Primary Care Provider Unavailabl e Encounter Details Date Type Department Care Team Description 12/03/2014 Hospital Medical Records [address] [place] [address] Rashad Messina MD Social History Tobacco Use [...] on filedocumented in this encounter Care Teams Container Shop Welder Relationship Specialty Start Date End Date Kiel Shaffer MD PCP - General 05/26/09 04/27/15 Kiel Shaffer MD PCP - General Internal Medicine 04/28/15 05/05/15 Pihlly Vela DO PCP - General Internal Medicine 05/06/15 08/27/15 Kiel Shaffer MD PCP - General Internal Medicine 08/28/15 documented as of this encounter
--- OUTSIDE RECORDS SUMMARY | 2024-04-06 14:34 | XMS_ITS | Encounter Summary ---
Author Organization [facility] Address [address] [place] [address] 7t [place] [address] Care Team Providers Care Car Chaser Name Role Phone Kiel Shaffer MD Primary Care Provider [phone] Katlyn Rodriguez PharmD Unavailable [phone] Reason for Referral * Consultation (Routine) - Closed Specialty Diagnoses / Procedures Referred By Contact Referred To Contact Chiropractic Medicine Diagnoses Neck pain, acute Left upper arm pain Kiel Shaffer MD [address] [place] [address] Phone: tel: fax: [facility] [address] [place] [address] Phone: tel: fax: Referral ID Status Reason Start Date Expiration Date V isits Requested Visits Authorized [id number] Closed Specialty Services Required 03/27/2024 03/27/2025 20 20 Reason for Visit * Reason Comments Follow-up Encounter Details Date Type Department Care Team (Late st Contact Info) Description 03/27/2024 10:45 AM EST Office Visit [facility] [address] [place] [address] [phone] Kiel Shaffer MD [address] [place] [phone] Type 2 diabetes mellitus with other specified complication, with long-term current use of insulin ([facility]) (Primary Dx); Essential hypertension; Neck pain, acute; [...] recent blood work she had done at [facility]. Today she denies any chest pains or [...] 60 tablet 1 Blood Glucose Monitoring Suppl (ExecMobile Lite) w/Device kit USE DIRECTED FOUR TIMES [...] taking: Reported on 02/02/2024) TechLite Plus Pen [place] 32G X 4 MM misc USE FOUR [...] complication, with long-term current use of insulin ([facility]) Comments: Well controlled, continue current meds and [...] Description 04/10/2024 9:00 AM EST Clinical Support [address] [address] Opal Steiner RN 05/07/2024 10:30 AM EDT Medication Management [address] [address] Puia, Katlyn, PharmD [address] [place] [address] Scheduled Referrals Name Type Priority Associated Diagnoses [...] complication, with long-term current use of insulin ([facility]) POCT GLUCOSE Routine 03/27/2024 10:48 AM EST Type 2 diabetes mellitus with other specified complication, with long-term current use of insulin ([facility]) documented in this encounter Results * (ABNORMAL) POCT HGB A1C (03/27/2024 10:50 AM EST) [facility] Hemoglobin A1C 7.5(A) 4.0 - 6.0 % [employer] Media Lot # [id number] Lot# Expiration Date 7470,200 Blood 03/27/2024 10:5 0 AM EST Kiel Shaffer MD POINT OF CARE TEST ENTER/EDIT OR DERABLES Final Result * (ABNORMAL) POCT Glucose (03/27/2024 10:48 AM EST) Glucose Blood, POC 218(A) 60 - 200 mg/dL [employer] Lot # [id number] Lot# Expiration Date 5,690 Blood Capillary blood specimen / Unknown 03/27/2024 10:48 AM EST Kiel Shaffer MD POINT OF CARE TEST ENTER/EDIT OR DERABLES Final Result documented in this encounter Visit Diagnoses Diagnosis Type 2 diabetes mellitus with other specified complication, with long-term current use of insulin ([facility])- Primary Essential hypertension Unspecified essential hypertension Neck pain, acute Left upper arm pain documented in this encounter Additional Health Concerns Assessment Noted Time PHQ-9 Depression Total Score: 4 09/02/19 24 10:30 AM EDT documented as of this encounter Care Teams Car Chaser Relationship Specialty Start Date End Date Name, MD Kiel [address] [place] [address] PCP - General Family Medicine 07/15/15 Katlyn Rodriguez PharmD [address] [place] [address] Pharmacist Internal Medicine 10/08/22 Marta Ovalle Solder Making LaborerFish Bailer 05/25/23 documented as of this encounter
--- OUTSIDE RECORDS SUMMARY | 2024-04-06 14:34 | XMS_ITS | Encounter Summary ---
Author Organization [facility] Address [address] [place] [address] Care Team Providers Care Event Marketing Specialist Name Role Phone Name, Kiel BAILEY Primary Care Provider Unavailabl e Name, Kiel BAILEY Primary Care Provider Unavailabl e Philly Vela DO Primary Care Pro vider Unavailable Name, Kiel BAILEY Primary Care Provider Unavailabl e Encounter Details Date Type Department Care Team Description 09/20/2011 Facility Maintenance Mechanic Report Medical Records [address] [place] [address] Edy Lal MD Social History Tobacco Use [...] on filedocumented in this encounter Care Teams Event Marketing Specialist Relationship Specialty Start Date End Date Kiel Shaffer MD PCP - General 05/26/09 04/27/15 Kiel Shaffer MD PCP - General Internal Medicine 04/28/15 05/05/15 Philly Vela DO PCP - General Internal Medicine 05/06/15 08/27/15 Kiel Shaffer MD PCP - General Internal Medicine 08/28/15 documented as of this encounter
--- OUTSIDE RECORDS SUMMARY | 2024-04-06 14:34 | XMS_ITS | Encounter Summary ---
Author Organization [employer] Address [address] 7[address] [place] [address] Care Team Providers Care Manager Bridge Name Role Phone Name, Kiel BAILEY Primary Care Provider [phone] Katlyn Rodriguez PharmD Unavailable [phone] Encounter Details Date Type Department Care Team ([facility] st Contact Info) Description 03/23/2024 Refill [facility] [address] [place], [place] [phone] Name, MD Kiel [address] [place] [address] Essential hypertension Social History Tobacco Use Types [...] Description 04/10/2024 9:00 AM EST Clinical Support [facility] [address] [place] [address] Opal Steiner RN 05/07/2024 10:30 AM EDT Medication Management [facility] [address] [place] [address] Puia, Katlyn, PharmD [address] [place] [address] documented as of this encounter Goals Goal [...] as of this encounter Care Teams Manager Bridge Relationship Specialty Start Date End Date Name, MD Kiel [address] [place], [place] [phone] PCP - General Family Medicine 07/15/15 Katlyn Rodriguez PharmD [address] [place] [address] Pharmacist Internal Medicine 10/08/22 Marta Ovalle Paper Goods Machine Set Up OperatorIrrigation Worker 05/25/23 documented as of this encounter
--- OUTSIDE RECORDS SUMMARY | 2024-04-06 14:34 | XMS_ITS | Encounter Summary ---
[facility] Address [address] [place] [address] Care Team Providers Care Transport Tech Name Role Phone Name, Kiel BAILEY Primary Care Provider Unavailabl e Name, Kiel BAILEY Primary Care Provider Unavailabl e Philly Vela DO Primary Care Pro vider Unavailable Name, Kiel BAILEY Primary Care Provider Unavailabl e Encounter Details Date Type Department Care Team Description 03/30/2011 [employer] Report Medical Records [address] [place] [id number] Mohini Ellis NP Social History Tobacco Use [...] on filedocumented in this encounter Care Teams Transport Tech Relationship Specialty Start Date End Date Kiel Shaffer MD PCP - General 05/26/09 04/27/15 Kiel Shaffer MD PCP - General Internal Medicine 04/28/15 05/05/15 Philly Vela DO PCP - General Internal Medicine 05/06/15 08/27/15 Kiel Shaffer MD PCP - General Internal Medicine 08/28/15 documented as of this encounter
--- OUTSIDE RECORDS SUMMARY | 2024-04-06 14:34 | XMS_ITS | Clinical Summary ---
Author Organization [employer] Address [address] [place] [address] 7[address] [place] [address] Care Team Providers Care Shed Workers Supervisor Name Role Phone Name, Kiel BAILEY Primary Care Provider [phone] Katlyn Rodriguez PharmD Unavailable [phone] Allergies Active Allergy Reactions Criticality Noted [...] complication, with long-term current use of insulin ([facility]) Inject 12 units subcutaneously before [...] complication, with long-term current use of insulin ([facility]) Take 1 tablet (80 mg) [...] complication, with long-term current use of insulin ([facility]) Take 1 tablet (10 mg) by mouth Once per day. 30 tablet 024 2024 Active Blood Glucose Monitoring Suppl (FreeStyle [place] Lite) w/Device kitIndications: Type 2 diabetes mellitus with other specified complication (CMS/HCC) USE DIRECTED FOUR TIMES DAILY DIRECTED 1 kit Active metFORMIN XR (Glucophage-XR) 500 MG 24 hr tabletIndicatio ns:Type 2 diabetes mellitus with obesity (CMS/HCC) ([facility]) TAKE 1 TABLET BY MOUTH [...] complication, with long-term current use of insulin ([facility]) Use to test blood sugar up to 4 times daily, as directed. 200 strip Active TRUEplus Lancets 33G miscIndications :Type 2 diabetes mellitus with other specified complication, with long-term current use of insulin ([facility]) Use to test blood sugar four times daily as directed 200 each 11 08/29/2 024 Active TechLite Plus Pen [place] 32G X 4 MM misc USE FOUR [...] complication, with long-term current use of insulin ([facility]) Inject 12.5 mg under the [...] Dx: OA knee Tx: oxycodone 10mg BID TIRE WRAPPER last signed: 05/03/23 Mild intermittent asthma with [...] PM EST): I presented the case to [facility] emergency room, patient will go by ambulance [...] for Paxlovid sent to the pharmacy -Utilized [place] drug interaction apparel stock checker to assess interactions with current med [...] hospitalazion in May and 3 ER visits [facility] 08/02 B-cell lymphoma 04/17/2018 Seizure 11/18/2017 [...] Encounters Date Type Department Care Team Description 04/06/2024 Telephone [facility] [address] [place] [address] Name, MD Kiel Referral (Patient walked in stating the referral pcp sent on 03/28/2024 needs to be changed to physical therapy not chiropractic. Patient said she went to the office [address] [facility] and they said it needs to be changed to physical therapy. ) 04/02/2024 Telephone [facility] [address] [place] [address] [facility]Kiel MD [facility] (Disposable underpad / chux pad large/Gloves N-steril per (bx)) 03/30/2024 12:00 PM EST Immunization [facility] [address] [place] [address] Mary Light LPN Encounter for immunization (Primary Dx) 03/30/2024 Travel 03/27/2024 10:45 AM EST Office Visit [facility] [address] [facility] [place] [address] Kiel Shaffer MD Type 2 diabetes mellitus with other specified complication, with long-term current use of insulin ([facility]) (Primary Dx); Essential hypertension; Neck pain, acute; Left upper arm pain 03/27/2024 Telephone [facility] [address] [place] [address] Opal Steiner, MARINA Reschedule TIRE WRAPPER R V appt from 03/26/24 03/27/2024 Travel 03/26/2024 Telephone [facility] [address] [place] [address] Kiel Shaffer MD 03/23/2024 Refill [facility] [address] [place] [address] Kiel Shaffer MD Essential hypertension 03/22/2024 Refill [facility] [address] [place] [address] Kiel Shaffer MD Chronic pain syndrome 03/21/2024 Refill [facility] [address] [place] [address] Kiel Shaffer MD Urticaria 03/08/2024 Telephone [facility] [address] [place] [address] Kiel Shaffer MD 02/29/2024 Telephone [facility] [address] [place] [address] Kiel Shaffer MD Appointment Request 02/27/2024 Refill [facility] [address] [place] [address] Kiel Shaffer MD 02/23/2024 Telephone [facility] [address] [place] [address] Kiel Shaffer MD Durable Medical Equipment 02/23/2024 Refill [facility] [address] [place] [address] Kiel Shaffer MD Chronic pain syndrome 02/20/2024 Telephone [facility] [address] [place] [address] Kiel Shaffer MD 02/20/2024 Telephone [facility] [address] [place] [address] Kiel Shaffer MD 02/09/2024 Orders Only [facility] [address] [place] [phone] Millie Siddiqui DO Acute left-sided low back pain with left-sided sciatica (Primary Dx) 02/08/[address] [address] Renetta Power, MARINA 02/06/[address] [address] Kiel Shaffer MD ER Follow-up 02/03/[address] [address] Katlyn Rodriguez, AngieD Prior Authorization (Vascepa) 02/03/[address] [address] Brianna Buckley, RN Results 02/02/[address] [address] Kiel Shaffer MD Referral (Patient walked in requesting referral for physical therapy to be sent to [address] [place] [address] , [phone] Action chiropractor / ) 02/01/2024 2:00 PM EST Office Visit [facility] [address] [place] [address] Cynthia Zapata MD Acute bronchitis, unspecified organism; Type 2 diabetes mellitus with other specified complication, with long-term current use of insulin ([facility]); Dizziness 02/01/2024 Telephone [facility] [address] [place] [address] Kiel Shaffer MD Nurse Triage 01/31/2024 9:00 AM EST Clinical Support [address] [address] Opal Steiner RN Chronic pain syndrome (Primary Dx) 01/31/2024 Refill [facility] [address] [place] [address] Kiel Shaffer MD 01/27/[address] [address] Kiel Shaffer MD Med Refill 01/26/2024 Refill [facility] [address] [place] [address] Millie Siddiqui DO Acute left-sided low back pain with left-sided sciatica 01/26/[address] [address] Becky Aguayo MA DME from [employer] 01/26/[address] [address] Kiel Shaffer MD Medication Question 01/25/[address] [address] Becky Aguayo MA DME Wipes from [employer] 01/25/[address] [address] Keil Shfafer MD Referral 01/25/2024 Refill [facility] [address] [place] [address] Kiel Shaffer MD Urticaria 01/24/2024 9:00 AM EST Office Visit [facility] [address] [address] Millie Siddiqui DO Acute left-sided low back pain with left-sided sciatica (Primary Dx); Contusion of forehead, initial encounter 01/24/[address] [address] Yvonne Walls MD 01/23/2024 9:00 AM EST Office Visit [facility] [address] [place] [address] Yvonne Walls MD Acute exacerbation of chronic low back pain (Primary Dx); Left hip pain; Left elbow pain 01/23/2024 Telephone [facility] [address] [address] Yvonne Walls MD 01/23/2024 Telephone [facility] [address] [place] [address] Madalyn Carrasco RN 01/23/2024 Refill [facility] [address] [place] [phone] Name, MD Kiel Chronic pain syndrome 01/16/2024 Orders Only [facility] External Provider, [facility] 01/16/2024 Refill [facility] [address] [place] [address] Yvonne Walls MD 01/14/2024 Refill [facility] [address] [place] [address] Name, MD Kiel from Last 3 Months Immunizations Name Administration Dates Next Due HepB-CpG 11/05/2022,10/08/2022 Influenza Injectable Quadriv alant Preservative Free IIV4 MDCK 11/05/2022 Influenza Whole 11/06/2010 Influenza injectable quadriv alent IIV4 with preservative 01/09/2016 Influenza injectable quadriv alent preservative free 11/13/2021,01/21/2021,01/07/2020,12/13,01/30/2018 Influenza, IIV3, injectable 02/03/2016,1 ,12/16/2013,02/23,11/02/2012,10/26/2011,01/13/2011 ,11/03/2010,11/21/2009 Influenza, seasonal, injecta ble, preservative free 11/29/2023 Novel [id number], all formulations 05/31/2009 Pneumococcal Conjugate PCV 20 [...] Description 04/10/2024 9:00 AM EST Clinical Support [facility] [address] [place] [phone] Opal Steiner, RN 05/07/2024 10:30 AM EDT Medication Management [facility] [address] [place] [phone] Katlyn Rodriguez, PharmD [address] [place] [address] Health Maintenance Due Date Last Done Comments [...] 05/25/2024 05/26/2023, 08/30/2022 Diabetes: Hemoglobin A1C 06/24/2024 02/ 025, 02/01/2024, 10/28/2023, Additional history exists Depression [...] per day Blood Pressure No Katlyn Rodriguez PharmD Blood Pressure < 140/90 Blood Pressure 113/64(2024 10:47 AM EST) No Katlyn Rodriguez PharmD Hemoglobin A1c < 7 Result Component 7.5( 10:50 AM EST) No Katlyn Rodriguez PharmD Record your blood sugar as directed Result Component No Katlyn Rodriguez PharmD Procedures Procedure Name Priority Date/Time Associated Diagnosis Comments POCT GLYCATED HEMOGLOBIN, TOTAL Routine 03/27/2024 10:50 AM EST Type 2 diabetes mellitus with other specified complication, with long-term current use of insulin ([facility]) POCT GLUCOSE Routine 03/27/2024 10:48 AM EST Type 2 diabetes mellitus with other specified complication, with long-term current use of insulin ([facility]) CT RENAL FOR STONES Routine 02/21/2024 3 :09 PM EST POCT HEMOGLOBIN Routine 02/01/2024 12:35 PM EST Type 2 diabetes mellitus with other specified complication, with long-term current use of insulin ([facility]) Dizziness POCT GLYCATED HEMOGLOBIN, TOTAL Routine 02/01/2024 12:35 PM EST Type 2 diabetes mellitus with other specified complication, with long-term current use of insulin ([facility]) Dizziness POCT GLUCOSE Routine 02/01/2024 12:35 PM EST Type 2 diabetes mellitus with other specified complication, with long-term current use of insulin ([facility]) Dizziness MR LUMBAR SPINE WO [...] complication, with long-term current use of insulin ([facility]) Rib pain on left side [...] Media Lot # [id number] Lot# Expiration Date [id number] Blood Capillary blood specimen / Unknown 03/27/2024 10:48 AM EST us Kiel Shaffer MD POINT OF CARE TEST ENTER/EDIT OR DERABLES Final Result * CT RENAL FOR STONES (02/21/2024 3:09 PM EST) Anatomical Region Laterality Modality Computed Tomogra phy 02/21/2024 3:09 PM EST Narrative 02/21/2024 3:10 PM EST ? [facility] ?[address] ?[place] [address] ? CT Scan Report ? Signed ? Patient: Sarita Puga ?MR#: [id number] ?? 92 ? : 1965 ?Acct:[id number] ? Age/Sex: 58 / F ?ADM Date: 02/21/24 ? Loc: HO.CT ? Attending Dr: Cherelle ROMO ? Ordering Physician: Cherelle Trujillo ?? Date of Service: 02/21/24 ?? Procedure(s): CT kidney stone ?? Accession Number(s): [id number] ? cc: Cherelle Trujillo; Name,Kiel BAILEY ? Report Number: ?? [id number]: Total DLP = ??650.00 mGy-cm ? CLINICAL [...] DD/ 1509 ? TD/TT: 02/21/24 1509 ? Television Parts Tester: ? Procedure Note Donhankter, Image - 02/21/[address] [place] [address] [address] Scan Report Signed Patient: Sarita Puga MMR#: [id number] 92 : 1965Acct:[id number] Age/Sex: 58 / FADM Date: 02/21/24 Loc: HO.CT Attending Dr: Cherelle ROMO Ordering Physician: Cherelle Trujillo Date of Service: 02/21/24 Procedure(s): CT kidney stone Accession Number(s): [id number] cc: Cherelle Trujillo; Name,Kiel BAILEY Report Number: [id number]: Total DLP = 650.00 mGy-cm CLINICAL HISTORY: [...] 02/21/24 1510 DD/ 1509 TD/TT: 02/21/24 1509 Television Parts Tester: [facility] External Provider IMG CT PROCEDURES Final Result * POCT Hemoglobin (02/01/2024 12:35 PM EST) Hemoglobin Comment:13.4 Blood 02/01/2024 12:3 5 PM EST Cynthia Zapata MD POINT OF CARE TEST ENTER/EDIT OR DERABLES Final Result * MR Lumbar Spine w/o Contrast (02/01/2024 10:29 AM EST) Anatomical Region Laterality Modality Spine, L-spine Magnetic Resonan ce 02/01/2024 10:2 9 AM EST Narrative 02/01/2024 11:04 AM EST ? [facility] ?[address] ?[place] [address] ? Magnetic Resonance Report ? Signed ? Patient: Sarita Puga ?MR#: [id number] ?? 92 ? : 1965 ?Acct:[id number] ? Age/Sex: 58 / F ?ADM Date: 02/01/24 ? Loc: HO.MRI ? Attending Dr: Millie Siddiqui DO ? Ordering Physician: Millie Siddiqui DO ?? Date of Service: 02/01/24 ?? Procedure(s): MR lumbar spine wo con ?? Accession Number(s): [id number] ? cc: Millie Siddiqui DO; Name,Kiel BAILEY [...] DD/ 1029 ? TD/TT: 02/01/24 1045 ? Television Parts Tester: ? Procedure Note Donotuseinterpreter, Image - 02/01/[address] [address] Magnetic Resonance Report Signed Patient: Sarita Puga MMR#: [id number] 92 : 1965Acct:[id number] Age/Sex: 58 / FADM Date: 02/01/24 Loc: HO.MRI Attending Dr: Millie Siddiqui DO Ordering Physician: Millie Siddiqui DO Date of Service: 02/01/24 Procedure(s): MR lumbar spine wo con Accession Number(s): [id number] cc: Millie Siddiqui DO; Name,Kiel BAILEY EXAMINATION: [...] by: Felix Fall MD 02/01/2024 11:01 AM EST RP Dictated By: Felix Mckinnon MD Signed By: <Electronically signed by Felix Tilley MDin OV> 02/01/24 1101 DD/ 1029 TD/TT: 02/01/24 1045 Television Parts Tester: us Millie Siddiqui DO IMG MRI PROCEDURES Edited Re sult - Final * POCT KEELEY-14 Urine Drug Screen (01/31/2024 9:47 AM EST) Oxycodone Screen, Urine Positive Urine Urine specimen obtained by clean catch procedure / Unknown 01/31/2024 9:47 AM EST Narrative Opal Steiner RN - 01/31/2024 9:47 AM EST UTOX cup Lot#[id number] Exp. 11/15/25 Internal Pass Control us Kiel Shaffer MD POINT OF CARE TEST ENTER/EDIT OR DERABLES Final Result * XR Lumbar Spine 2-3 Views (01/24/2024 9:59 AM EST) Anatomical Region Laterality Modality Spine, L-spine Radiographic Diana ging 01/24/2024 9:59 AM EST Narrative 01/24/2024 1:08 PM EST ?[facility] ?[address] ?[place] [address] ?XRay Report ? Signed ? Patient: Puga,Shilpi ?MR#: [id number] ?? 92 ? : 1965 ?Acct:[id number] ? Age/Sex: 58 / F ?ADM Date: 12/03/24 ? Loc: HO.HHCX ? Attending Dr: Millie Siddiqui DO ? Ordering Physician: Millie Siddiqui DO ?? Date of Service: 01/24/24 ?? Procedure(s): XR lumbar spine 2-3V ?? Accession Number(s): [id number] ? cc: Millie Siddiqui DO ? EXAMINATION: ?? XR LUMBOSACRAL SPINE [...] by referring provider. ? Electronically signed by: ??Marisol Rodgers MD ??01/24/2024 01:05 PM EST ? Dictated By: ?Marisol Rodgers MD ? Signed By: ?<Electronically signed by Marisol Rodgers MD in OV> ? 01/24/24 1305 ? DD/ 0959 ? TD/TT: 01/24/24 1004 ? Television Parts Tester: ? Procedure Note Jung Bañuelos - 01/24/[address] [address] XRay Report Signed Patient: Sarita Puga MMR#: [id number] 92 : 1965Acct:[id number] Age/Sex: 58 / FADM Date: 01/24/24 Loc: HO.HHCX Attending Dr: Millie Siddiqui DO Ordering Physician: Millie Siddiqui DO Date of Service: 01/24/24 Procedure(s): XR lumbar spine 2-3V Accession Number(s): [id number] cc: Millie Siddiqui DO EXAMINATION: XR LUMBOSACRAL [...] 01/24/24 1305 DD/ 0959 TD/TT: 01/24/24 1004 Television Parts Tester: us Millie Siddiqui DO IMG XR PROCEDURES Final Resu lt * XR Hip 2 or 3 Views Left (01/23/2024 10:00 AM EST) Anatomical Region Laterality Modality Lower Extremities, Hip Left Radiograp hic Imaging 01/23/2024 10:0 0 AM EST Narrative 01/23/2024 3:13 PM EST ?[place] [facility] ?[address] ?[place] [address] ?XRay Report ? Signed ? Patient: Puga,Shilpi ?MR#: [id number] ?? 92 ? : 1965 ?Acct:[id number] ? Age/Sex: 58 / F ?ADM Date: 01/23/24 ? Loc: HO.HHCX ? Attending Dr: Yvonne Walls MD ? Ordering Physician: Yvonne Walls MD ?? Date of Service: 01/23/24 ?? Procedure(s): XR hip LT min 2V ?? Accession Number(s): [id number] ? cc: Yvonne Walls MD ? EXAMINATION: [...] signed by Tyron Santos MD in OV> ?12/02/24 1510 ? DD/ 1000 ? TD/TT: 01/23/24 1030 ? Television Parts Tester: WG ? Procedure Note Abdifatahjaret, Image - 01/23/2024 [place] [address] XRay Report Signed Patient: Sarita Puga MMR#: [id number] 92 : 1965Acct:[id number] Age/Sex: 58 / FADM Date: 01/23/24 Loc: HO.HHCX Attending Dr: Yvonne Walls MD Ordering Physician: Yvonne Walls MD Date of Service: 01/23/24 Procedure(s): XR hip LT min 2V Accession Number(s): [id number] cc: Yvonne Walls MD EXAMINATION: XR HIP, [...] Tyron Santos MD 01/23/2024 03:10 PM EST RP Dictated By: Tyron Santos MD Signed By: <Electronically signed by Tyron Santos MD inOV> 01/23/24 1510 DD/ 1000 TD/TT: 01/23/24 1030 Television Parts Tester: LEANNE us Yvonne Walls MD IMG XR PROCEDURES Final Result * XR Elbow 3+ Views Left (01/23/2024 10:00 AM EST) Anatomical Region Laterality Modality Upper Extremities, Elbow Left Radiogr aphic Imaging 01/23/2024 10:0 0 AM EST Narrative 01/23/2024 3:12 PM EST ?[facility] ?[address] ?[place] [address] ?XRay Report ? Signed ? Patient: Sarita Puga ?MR#: [id number] ?? 92 ? : 1965 ?Acct:[id number] ? Age/Sex: 58 / F ?ADM Date: 01/23/24 ? Loc: HO.HHCX ? Attending Dr: Yvnone Walls MD ? Ordering Physician: Yvonne Walls MD ?? Date of Service: 01/23/24 ?? Procedure(s): XR elbow LT min 3V ?? Accession Number(s): [id number] ? cc: Yvonne Walls MD ? EXAMINATION: [...] DD/ 1000 ? TD/TT: 01/23/24 1030 ? Television Parts Tester: LEANNE ? Procedure Note Donotuseinterpreter, Image - 01/23/2024 [facility] [address] [place] [address] XRay Report Signed Patient: Sarita Puga MMR#: [id number] 92 : 1965Acct:[id number] Age/Sex: 58 / FADM Date: 01/23/24 Loc: HO.HHCX Attending Dr: Yvonne Walls MD Ordering Physician: Yvonne Walls MD Date of Service: 01/23/24 Procedure(s): XR elbow LT min 3V Accession Number(s): [id number] cc: Yvonne Walls MD EXAMINATION: XR ELBOW, [...] 01/23/24 1510 DD/ 1000 TD/TT: 01/23/24 1030 Television Parts Tester: LEANNE Yvonne Walls MD IMG XR PROCEDURES Final [...] EST Narrative 03/10/2024 2:37 PM EST ? [facility] ?[address] ?[place] [address] ? Ultrasound Report ? Signed ? Patient: Sarita Puga ?MR#: [id number] ?? 92 ? : 1965 ?Acct:[id number] ? Age/Sex: 58 / F ?ADM Date: 01/16/24 ? Loc: HO.US ? Attending Dr: Cherelle ROMO ? Ordering Physician: Cherelle Trujillo ?? Date of Service: 01/16/24 ?? Procedure(s): US renal BI ?? Accession Number(s): [id number] ? cc: Cherelle Trujillo; Name,Kiel BAILEY ? [...] DD/ 1141 ? TD/TT: 01/16/24 1147 ? Television Parts Tester: ? Procedure Note Donahnkter, Image - 03/10/2024 [place] [address] Ultrasound Report Signed Patient: Sarita Puga MMR#: [id number] 92 : 1965Acct:[id number] Age/Sex: 58 / FADM Date: 01/16/24 Loc: HO.US Attending Dr: Cherelle ROMO Ordering Physician: Cherelle Trujillo Date of Service: 01/16/24 Procedure(s): US renal BI Accession Number(s): [id number] cc: Cherelle Trujillo; Name,Kiel BAILEY EXAMINATION: US [...] Marisol Rodgers MD 03/10/2024 02:34 PM EST RP Dictated By: Marisol Rodgers MD Signed By: <Electronically signed by Marisol Rodgers MD in OV> 03/10/24 1434 DD/ 1141 TD/TT: 01/16/24 1147 Television Parts Tester: us [facility] External Provider IMG US PROCEDURES Edited Result - Final * (ABNORMAL) Lipid Panel, Standard (10/25/2023 8:11 AM EDT) Triglycerides 266(H) <150 mg/dL [facility] Comment:Desirable Triglyceri de: less than 150 mg/dLBorderline High Triglyceride 150-199 mg/dLHigh Triglyceride: 200-499 mg/dLVery High Triglyceride: greater than or equal to 5OO mg/dL Cholesterol 206(H) <200 mg/dL [facility] Comment:Desirable Cholestero l: less than 200 mg/dLBorderline High Cholesterol: 200-239 mg/dLHigh Cholesterol: greater than 239 mg/dL LDL Cholesterol Calculated 104(H) <100 mg/dL [facility] Comment:Desirable LDL: less than 100 mg/dLNear Optimal/Above Optimal LDL: 110- 129 mg/dLBorderline High LDL: 130-159 mg/dLHigh LDL: 160-189 mg/dLVery High LDL: greater than or equal to 190 mg/dL HDL Cholesterol 49 >40 mg/dL [facility] Comment:Desirable HDL: great er than 40 mg/dL Note: This HDL assay may give artificially low results in patients with liver disease. 10/25/2023 8:11 AM EDT 10/25/2023 11:22 AM EDT us Kiel Shaffer MD LAB BLOOD ORDERABLES Final Resul t [facility] [address] [facility] [place] [address] [phone] * BI Mammogram Screening Tomosynthesis Bilateral (06/03/2023 8:45 AM EDT) Anatomical Region Laterality Modality Breast Bilateral Mammography 06/03/2023 8:45 AM EDT Narrative 06/30/2023 10:24 PM EDT ? [facility] ? [address] ?[place] [address] ? Mammography Report ? Signed ? Patient: Sarita Puga ?MR#: [id number] ?? 92 ? : 1965 ?Acct:[id number] ? Age/Sex: 57 / F ?ADM Date: 06/03/23 ? Loc: HO.MAMMO ? Attending Dr: Kiel Name MD ? Ordering Physician: Name,Kiel MD ?Results: 1Negative ? Date of Service: 06/03/23 ?Follow Up: 1 Year From Orig ?? inal Mammogram ? Procedure(s): MM tomosynthesis screening BI ?? Accession Number(s): [id number] ? cc: Name,Kiel BAILEY ? EXAMINATION: ?? [...] by Nancy Healy MD in OV> ? 06/30/23 2220 ? DD/ 0845 ? TD/TT: ? Television Parts Tester: ? Procedure Note Sarmad, Image - 06/30/2023 [facility] [address] [place] [address] Mammography Report Signed Patient: Sarita Puga MMR#: [id number] 92 : 1965Acct:[id number] Age/Sex: 57 / FADM Date: 06/03/23 Loc: [facility] Attending Dr: Kiel Shaffer MD Ordering Physician: Kiel Shafferults: 1Negative Date of Service: 06/03/23Follow Up: 1 Year From Orig inal Mammogram Procedure(s): MM tomosynthesis screening BI Accession Number(s): [id number] cc: Kiel Shaffer MD EXAMINATION: MM SCREENING [...] signed by Nancy Healy MD in OV> 06/30/230 DD/ 0845 TD/TT: Television Parts Tester: Kiel Shaffer MD IMG BI PROCEDURES Edited Result - Final * Albumin, Random Urine W/Creatinine (05/26/2023 8:27 AM EDT) Creatinine, Urine 185.88 mg/dL [facility] Microalbumin Urine 23.0 mg/L [facility] Microalbum Creatinine Ratio Ur 12.3 <30 ug/mg cr [facility] Comment:Albumin/Creatinine R atio Reference Ranges: Normal: < 30 ug/mg creatinine Microalbuminuria: 30 - 300 ug/mg creatinineClinical Albuminuria: > 300 ug/mg creatinine Urine (Urine, Random) 05/26/2023 8:27 AM EDT 05/26/2023 11:19 AM EDT us Kiel Shaffer MD LAB URINE ORDERABLES Final Resul t [facility] [address] [place] [phone] * Colonoscopy (07/01/2022 4:37 PM EDT) Colonoscopy Normal Normal Narrative [place] - 07/01/2022 4:37 PM EDT Recommended 5 year follow up ([facility]) Historical Provider HEALTH MAINTENANCE Final Result * Diabetes Eye Exam (05/26/2022) Eye Exam Normal Normal Kiel Shaffer MD HEALTH MAINTENANCE Final Result from Last 3 Months or Most Recently Relevant to Health Maintenance Insurance [employer] C3 [employer] C3 [facility] C3 [facility] C3 Care Teams Shed Workers Supervisor Relationship Specialty Start Date End Date Name, MD Kiel [address] [place] [address] PCP - General Family Medicine 07/15/15 Katlyn Rodriguez PharmD [address] [place] [address] Pharmacist Internal Medicine 10/08/22 Marta Ovalle Administrative ExecutiveTool And Machine Maintainer 05/25/23
--- OUTSIDE RECORDS SUMMARY | 2024-04-06 14:34 | XMS_ITS | Encounter Summary ---
Author Organization [facility] Address [address] [place] [address] Care Team Providers Care Anesthesiologists' Assistant Name Role Phone Philly Vela DO Primary Care Pro vider Unavailable Kiel Shaffer MD Primary Care Provider Unavailabl e Encounter Details Date Type Department Care Team Description 07/22/2015 Comber Setter Report Medical Records [address] [place] [address] Miguel Angel Echevarria PA-C Social History Tobacco [...] on filedocumented in this encounter Care Teams Anesthesiologists' Assistant Relationship Specialty Start Date End Date Philly Vela DO PCP - General Internal Medicine 05/06/15 08/27/15 Kiel Shaffer MD PCP - General Internal Medicine 08/28/15 documented as of this encounter
--- OUTSIDE RECORDS SUMMARY | 2024-04-06 14:34 | XMS_ITS | Encounter Summary ---
Author Organization [facility] Address [address] [place] [address] Care Team Providers Care Air Brush Operator Name Role Phone Name, Kiel BAILEY Primary Care Provider Unavailabl e Name, Kiel BAILEY Primary Care Provider Unavailabl e Philly Vela DO Primary Care Pro vider Unavailable Name, Kiel BAILEY Primary Care Provider Unavailabl e Encounter Details Date Type Department Care Team Description 09/02/2010 Veneer Sample Maker Report Medical Records [address] [place] [address] Shon Blanca Social History Tobacco Use Types [...] on filedocumented in this encounter Care Teams Air Brush Operator Relationship Specialty Start Date End Date Deena, MD Kiel PCP - General 05/26/09 04/27/15 Kiel Shaffer MD PCP - General Internal Medicine 04/28/15 05/05/15 Philly Vela DO PCP - General Internal Medicine 05/06/15 08/27/15 Kiel Shaffer MD PCP - General Internal Medicine 08/28/15 documented as of this encounter
--- OUTSIDE RECORDS SUMMARY | 2024-04-06 14:34 | XMS_ITS | Encounter Summary ---
Author Organization [employer] Address [address] 7t [place] [address] Care Team Providers Care Call Circuit Worker Name Role Phone Name, Kiel BAILEY Primary Care Provider [phone] Katlyn Rodriguez PharmD Unavailable [phone] Encounter Details Date Type Department Care Team ([facility] Contact Info) Description 03/08/2024 Telephone [facility] [address] [place], [place] [phone] Name, MD Kiel [address] [place] [address] Social History Tobacco Use Types Packs/Day Years [...] Description 04/10/2024 9:00 AM EST Clinical Support [facility] [address] [place] [address] Opal Steiner RN 05/07/2024 10:30 AM EDT Medication Management [facility] [address] [place] [address] Puia, Katlyn, PharmD [address] [place] [address] documented as of this encounter Goals Goal [...] documented as of this encounter Care Teams Call Circuit Worker Relationship Specialty Start Date End Date Name, MD Kiel [address] [place] [address] PCP - General Family Medicine 07/15/15 Katlyn Rodriguez, Bin [address] [place] [address] Pharmacist Internal Medicine 10/08/22 Marta Ovalle Data ArchitectMachine Designer 05/25/23 documented as of this encounter
--- OUTSIDE RECORDS SUMMARY | 2024-04-06 14:34 | XMS_ITS | Encounter Summary ---
Author Organization [employer] Address [address] [facility] 7t [place] [address] Care Team Providers Care Senior Energy Trader Name Role Phone Name, Kiel BAILEY Primary Care Provider [phone] Katlyn Rodriguez PharmD Unavailable [phone] Encounter Details Date Type Department Care [...] Description 04/10/2024 9:00 AM EST Clinical Support [address] [address] Opal Steiner RN 05/07/2024 10:30 AM EDT Medication Management [address] [address] Puia, Katlyn, PharmD [address] [place] [address] documented as of this encounter Goals Goal [...] as of this encounter Care Teams Senior Energy Trader Relationship Specialty Start Date End Date Name, MD Kiel [address] [place] [address] PCP - General Family Medicine 07/15/15 Puia, Katlyn, PharmD [address] [place] [address] Pharmacist Internal Medicine 10/08/22 Marta Ovalle Agricultural Chemicals InspectorDrawbench Operator Helper 05/25/23 documented as of this encounter
--- OUTSIDE RECORDS SUMMARY | 2024-04-06 14:34 | XMS_ITS | Encounter Summary ---
Author Organization [facility] Address [address] [place] [address] Care Team Providers Care Hadoop Engineer Name Role Phone Name, Kiel BAILEY Primary Care Provider Unavailabl e Name, Kiel BAILEY Primary Care Provider Unavailabl e Philly Vela DO Primary Care Pro vider Unavailable Name, Kiel BAILEY Primary Care Provider Unavailabl e Encounter Details Date Type Department Care Team Description 11/06/2010 Floors Buffer Report Medical Records [address] [place] [address] Quinton Luther Social History Tobacco Use Types [...] on filedocumented in this encounter Care Teams Hadoop Engineer Relationship Specialty Start Date End Date Kiel Shaffer MD PCP - General 05/26/09 04/27/15 Kiel Shaffer MD PCP - General Internal Medicine 04/28/15 05/05/15 Philly Vela DO PCP - General Internal Medicine 05/06/15 08/27/15 Kiel Shaffer MD PCP - General Internal Medicine 08/28/15 documented as of this encounter
--- OUTSIDE RECORDS SUMMARY | 2024-04-06 14:34 | XMS_ITS | Encounter Summary ---
Author Organization [employer] Address [address] 7[address] [place] [address] Care Team Providers Care Esthetician/Owner Name Role Phone Name, Kiel BAILEY Primary Care Provider [phone] Katlyn Rodriguez PharmD Unavailable [phone] Encounter Details Date Type Department Care Team ([facility] st Contact Info) Description 03/30/2024 12:00 PM EST Immunization [facility] [address] [place] [address] Mary Light LPN Encounter for immunization (Primary [...] bite on 03/25/2024. Pt was referred to [facility] who directed her to [facility] to obtain vaccine Pt stated that the dog was not up to date on rabies vaccine so was directed to [facility] to be evaluated for rabies post exposure prophylaxis. Pt agreed Pt advised that there may be minor redness/swelling/pain at the injection site. Pt educated as to potential side effects of Tdap vaccine that could include mild fever/headache/ fatigue/nausea vomiting/ diarrhea/stomachaches. Pt expressed understanding that [facility] recommends remaining 15 minutes post- vaccination for observation. documented in this encounter Plan of Treatment Upcoming Encounters Date Type Department Care Team (Late st Contact Info) Description 04/10/2024 9:00 AM EST Clinical Support [facility] [address] [place] [address] Opal Steiner, RN 05/07/2024 10:30 AM EDT Medication Management [facility] [address] [place] [address] Katlyn Rodriguez, PharmD [address] [place] [address] documented as of this encounter Goals Goal [...] documented as of this encounter Care Teams Esthetician/Owner Relationship Specialty Start Date End Date Name, MD Kiel [address] [place] [address] PCP - General Family Medicine 07/15/15 Puia, Katlyn, PharmD [address] [place] [address] Pharmacist Internal Medicine 10/08/22 Marta Ovalle Sustainable Products Marketing ManagerRepresentative Phlebotomy Services 05/25/23 documented as of this encounter
--- OUTSIDE RECORDS SUMMARY | 2024-04-06 14:34 | XMS_ITS | Encounter Summary ---
Author Organization [facility] Address [address] [place] [address] Care Team Providers Care Dethistler Operator Name Role Phone Name, Kiel BAILEY Primary Care Provider Unavailabl e Name, Kiel BAILEY Primary Care Provider Unavailabl e Philly Vela DO Primary Care Pro vider Unavailable Name, Kiel BAILEY Primary Care Provider Unavailabl e Encounter Details Date Type Department Care Team Description 10/15/2010 Hospital Medical Records [address] [place] [address] Juan M Moreland Np Social History Tobacco [...] on filedocumented in this encounter Care Teams Dethistler Operator Relationship Specialty Start Date End Date Kiel Shaffer MD PCP - General 05/26/09 04/27/15 Kiel Shaffer MD PCP - General Internal Medicine 04/28/15 05/05/15 Philly Vela DO PCP - General Internal Medicine 05/06/15 08/27/15 Kiel Shaffer MD PCP - General Internal Medicine 08/28/15 documented as of this encounter
--- OUTSIDE RECORDS SUMMARY | 2024-04-06 14:34 | XMS_ITS | Encounter Summary ---
Author Organization [facility] Address [address] [place] [address] Care Team Providers Care Trimmer Operator Name Role Phone Name, Kiel BAILEY Primary Care Provider Unavailabl e Name, Kiel BAILEY Primary Care Provider Unavailabl e Philly Vela DO Primary Care Pro vider Unavailable Name, Kiel BAILEY Primary Care Provider Unavailabl e Encounter Details Date Type Department Care Team Description 01/14/2011 Hospital Medical Records [address] [place] [address] Ania Reid Social History Tobacco Use Types Packs/Day Years [...] on filedocumented in this encounter Care Teams Trimmer Operator Relationship Specialty Start Date End Date Kiel Shaffer MD PCP - General 05/26/09 04/27/15 Kiel Shaffer MD PCP - General Internal Medicine 04/28/15 05/05/15 Philly Vela DO PCP - General Internal Medicine 05/06/15 08/27/15 Kiel Shaffer MD PCP - General Internal Medicine 08/28/15 documented as of this encounter
--- OUTSIDE RECORDS SUMMARY | 2024-04-06 14:34 | XMS_ITS | Encounter Summary ---
Author Organization [facility] Address [address] [place] [address] Care Team Providers Care Nailing Machine Operator Name Role Phone Name, Kiel BAILEY Primary Care Provider Unavailabl e Name, Kiel BAILEY Primary Care Provider Unavailabl e Philly Vela DO Primary Care Pro vider Unavailable Name, Kiel BAILEY Primary Care Provider Unavailabl e Encounter Details Date Type Department Care Team Description 11/24/2014 Hospital Medical Records [address] [place] [address] Social History Tobacco Use Types Packs/Day Years [...] on filedocumented in this encounter Care Teams Nailing Machine Operator Relationship Specialty Start Date End Date Kiel Shaffer MD PCP - General 05/26/09 04/27/15 Kiel Shaffer MD PCP - General Internal Medicine 04/28/15 05/05/15 Philly Vela DO PCP - General Internal Medicine 05/06/15 08/27/15 Kiel Shaffer MD PCP - General Internal Medicine 08/28/15 documented as of this encounter
--- OUTSIDE RECORDS SUMMARY | 2024-04-06 14:34 | XMS_ITS | Encounter Summary ---
Author Organization [facility] Address [address] [place] [address] Care Team Providers Care Molding Room Supervisor Name Role Phone Name, Kiel BAILEY Primary Care Provider Unavailabl e Name, Kiel BAILEY Primary Care Provider Unavailabl e Philly Vela DO Primary Care Pro vider Unavailable Name, Kiel BAILEY Primary Care Provider Unavailabl e Encounter Details Date Type Department Care Team Description 11/20/2010 Phosphatic Fertilizer Supervisor Report Medical Records [address] [place] [address] Shon Blanca Social History Tobacco Use Types [...] on filedocumented in this encounter Care Teams Molding Room Supervisor Relationship Specialty Start Date End Date Deena, MD Kiel PCP - General 05/26/09 04/27/15 Kiel Shaffer MD PCP - General Internal Medicine 04/28/15 05/05/15 Philly Vela DO PCP - General Internal Medicine 05/06/15 08/27/15 Kiel Shaffer MD PCP - General Internal Medicine 08/28/15 documented as of this encounter
--- OUTSIDE RECORDS SUMMARY | 2024-04-06 14:34 | XMS_ITS | Encounter Summary ---
Author Organization [facility] Address [address] [place] [address] Care Team Providers Care Cheese Cooker Name Role Phone Name, Kiel BAILEY Primary Care Provider Unavailabl e Name, Kiel BAILEY Primary Care Provider Unavailabl e Philly Vela DO Primary Care Pro vider Unavailable Name, Kiel BAILEY Primary Care Provider Unavailabl e Encounter Details Date Type Department Care Team Description 02/11/2011 Property Developer Report Medical Records [address] [place] [address] Quinton Luther Social History Tobacco Use Types [...] on filedocumented in this encounter Care Teams Cheese Cooker Relationship Specialty Start Date End Date Kiel Shaffer MD PCP - General 05/26/09 04/27/15 Kiel Shaffer MD PCP - General Internal Medicine 04/28/15 05/05/15 Philly Vela DO PCP - General Internal Medicine 05/06/15 08/27/15 Kiel Shaffer MD PCP - General Internal Medicine 08/28/15 documented as of this encounter
--- OUTSIDE RECORDS SUMMARY | 2024-04-06 14:34 | XMS_ITS | Encounter Summary ---
Author Organization [employer] Address [address] [facility] 7t [place] [address] Care Team Providers Care Traffic Reporter Name Role Phone Name, Kiel BAILEY Primary Care Provider [phone] Katlyn Rodriguez PharmD Unavailable [phone] Encounter Details Date Type Department Care Team ([facility] Contact Info) Description 01/16/2024 Orders Only [facility] External Provider, [facility] Social History Tobacco Use Types Packs/Day [...] Description 04/10/2024 9:00 AM EST Clinical Support [address] [address] Opal Steiner RN 05/07/2024 10:30 AM EDT Medication Management [address] [address] Puia, Katlyn, PharmD [address] [place] [address] documented as of this encounter Goals Goal [...] EST Narrative 03/10/2024 2:37 PM EST ? [facility] ?[address] ?[place] [address] ? Ultrasound Report ? Signed ? Patient: Puga,Shilpi ?MR#: [id number] ?? 89 ? : 1965 ?Acct:[id number] ? Age/Sex: 58 / F ?ADM Date: 01/16/24 ? Loc: HO.US ? Attending Dr: Cherelle ROMO ? Ordering Physician: Cherelle Trujillo ?? Date of Service: 01/16/24 ?? Procedure(s): US renal BI ?? Accession Number(s): [id number] ? cc: Cherelle Trujillo; Name,Kiel BAILEY ? [...] DD/ 1141 ? TD/TT: 01/16/24 1147 ? Curator: ? Procedure Note Donotuseinterpreter, Image - 03/10/[address] [address] Ultrasound Report Signed Patient: Sarita Puga MMR#: [id number] : 1965Acct:[id number] Age/Sex: 58 / FADM Date: 01/16/24 Loc: HO.US Attending Dr: Cherelle ROMO Ordering Physician: Cherelle Trujillo Date of Service: 01/16/24 Procedure(s): US renal BI Accession Number(s): [id number] cc: Cherelle Trujillo; Name,Kiel BAILEY EXAMINATION: US [...] 03/10/24 1434 DD/ 1141 TD/TT: 01/16/24 1147 Curator: [facility] External Provider IMG US PROCEDURES Edited Result - Final documented in this encounter Visit Diagnoses Not on filedocumented in this encounter Additional Health Concerns Assessment Noted Time PHQ-9 Depression Total Score: 4 09/02/19 24 10:30 AM EDT documented as of this encounter Care Teams Traffic Reporter Relationship Specialty Start Date End Date Name, MD Kiel [address] [place] [address] PCP - General Family Medicine 07/15/15 Katlyn Rodriguez PharmD [address] [place] [address] Pharmacist Internal Medicine 10/08/22 Marta Ovalle Collection CorrespondentLiquefied Petroleum Gasfitter 05/25/23 documented as of this encounter
--- OUTSIDE RECORDS SUMMARY | 2024-04-06 14:34 | XMS_ITS | Encounter Summary ---
Author Organization [employer] [facility] Address [address] [place] [address] 7t [place] [address] Care Team Providers Care Market Research Assistant Name Role Phone Name, Kiel BAILEY Primary Care Provider [phone] Katlyn Rodriguez PharmD Unavailable [phone] Encounter Details Date Type Department Care Team ([facility] Contact Info) Description 10/29/[address] [address] Name, MD Kiel [address] [place] [address] Social History Tobacco Use Types Packs/Day Years [...] Upcoming Encounters Date Type Department Care Team ([facility] Contact Info) Description 04/10/2024 9:00 AM EST Clinical Support [address] [address] Opal Steiner RN 05/07/2024 10:30 AM EDT Medication Management [address] [place] [address] Katlyn Rodriguez, PharmD [address] [place] [address] documented as of this encounter Goals Goal Patient Goal Type Associated Problems Recent Progress Patient-Stated? Author Hemoglobin A1c < 7 Result Component 7.5( 5 10:50 AM EST) No Katlyn Rodriguez, PharmD Record your blood sugar as directed Result Component No Katlyn Rodriguez, PharmD documented as of this encounter Procedures [...] documented as of this encounter Care Teams Market Research Assistant Relationship Specialty Start Date End Date Name, [place] [address] PCP - General Family Medicine 07/15/15 Katlyn Rodriguez, PharmD [address] [place] [address] Pharmacist Internal Medicine 10/08/22 Marta Ovalle Button PusherCase Resolution Specialist 05/25/23 documented as of this encounter
--- OUTSIDE RECORDS SUMMARY | 2024-04-06 14:34 | XMS_ITS | Encounter Summary ---
Author Organization [employer] Address [address] [facility] 7t [place] [address] Care Team Providers Care Inspector Motor Vehicles Name Role Phone Name, Kiel BAILEY Primary Care Provider [phone] Katlyn Rodriguez PharmD Unavailable [phone] Reason for Visit * Reason Comments Med Refill Encounter Details Date Type Department Care Team ([facility] Contact Info) Description 03/22/2024 Refill [facility] [address] [place] [address] Name, MD Kiel [address] [place] [address] Chronic pain syndrome Social History Tobacco Use [...] 04/10/2024 9:00 AM EST Clinical Support [address] [address] Opal Steiner RN 05/07/2024 10:30 AM EDT Medication Management [address] [address] Puia, Katlyn, PharmD [address] [place] [address] documented as of this encounter Goals Goal [...] documented as of this encounter Care Teams Inspector Motor Vehicles Relationship Specialty Start Date End Date Name, MD Kiel [address] [place], [place] [phone] PCP - General Family Medicine 07/15/15 Katlyn Rodriguez PharmD [address] [place], [place] [phone] Pharmacist Internal Medicine 10/08/22 Marta Ovalle Personal Computer Network EngineerSenior Policy Analyst 05/25/23 documented as of this encounter
--- OUTSIDE RECORDS SUMMARY | 2024-04-06 14:34 | XMS_ITS | Encounter Summary ---
Author Organization [employer] Address [address] 7t [place] [address] Care Team Providers Care Collection Analyst Name Role Phone Name, Kiel BAILEY Primary Care Provider [phone] Katlyn Rodriguez PharmD Unavailable [phone] Encounter Details Date Type Department Care Team ([facility] st Contact Info) Description 02/20/2024 Telephone [facility] [address] [place], [place] [phone] Name, MD Kiel [address] [place] [address] Social History Tobacco Use Types Packs/Day Years [...] Description 04/10/2024 9:00 AM EST Clinical Support [facility] [address] [place] [address] Opal Steiner RN 05/07/2024 10:30 AM EDT Medication Management [facility] [address] [place] [address] Puia, Katlyn, PharmD [address] [place] [address] documented as of this encounter Goals Goal [...] documented as of this encounter Care Teams Collection Analyst Relationship Specialty Start Date End Date Name, MD Kiel [address] [place], [place] [phone] PCP - General Family Medicine 07/15/15 Katlyn Rodriguez PharmD [address] [place] [address] Pharmacist Internal Medicine 10/08/22 Marta Ovalle Gastroenterology PhysicianCollection Supervisor 05/25/23 documented as of this encounter
--- OUTSIDE RECORDS SUMMARY | 2024-04-06 14:34 | XMS_ITS | Encounter Summary ---
Author Organization [facility] Address [address] [place] [address] Care Team Providers Care Asset Availability Leader Name Role Phone Name, Kiel BAILEY Primary Care Provider Unavailabl e Name, Kiel BAILEY Primary Care Provider Unavailabl e Philly Vela DO Primary Care Pro vider Unavailable Name, Kiel BAILEY Primary Care Provider Unavailabl e Encounter Details Date Type Department Care Team Description 10/03/2014 Hospital Medical Records [address] [place] [address] Randall Garcia MD Social History Tobacco Use [...] on filedocumented in this encounter Care Teams Asset Availability Leader Relationship Specialty Start Date End Date Kiel Shaffer MD PCP - General 05/26/09 04/27/15 Kiel Shaffer MD PCP - General Internal Medicine 04/28/15 05/05/15 Philly Vela DO PCP - General Internal Medicine 05/06/15 08/27/15 Kiel Shaffer MD PCP - General Internal Medicine 08/28/15 documented as of this encounter
--- OUTSIDE RECORDS SUMMARY | 2024-04-06 14:34 | XMS_ITS | Encounter Summary ---
Author Organization [facility] Address [address] [place] [address] Care Team Providers Care Enterprise Software Engineer Name Role Phone Name, Kiel BAILEY Primary Care Provider [phone] Encounter Details Date Type Department Care Team (Late st Contact Info) Description 11/24/2023 10:30 AM EDT Hospital Encounter TH HISTORIC ENCOUNTERS EASTERN CONVERSION ONLY Geoffrey-Art Vitale MD [address] [place] [address] Social History Tobacco Use Types [...] documented as of this encounter Care Teams Enterprise Software Engineer Relationship Specialty Start Date End Date Name, MD Kiel 4 [facility] [place] PCP - General Internal Medicine 08/28/15 documented as of this encounter
--- OUTSIDE RECORDS SUMMARY | 2024-04-06 14:34 | XMS_ITS | Encounter Summary ---
Author Organization [employer] Address [address] [facility] 7t [place] [address] Care Team Providers Care Forestry Workers Name Role Phone Name, Kiel BAILEY Primary Care Provider Katlyn Rodriguez PharmD Unavailable [phone] Encounter Details Date Type Department Care [...] Description 04/10/2024 9:00 AM EST Clinical Support [address] [address] Opal Steiner RN 05/07/2024 10:30 AM EDT Medication Management [address] [address] Puia, Katlyn, PharmD [address] [place] [address] documented as of this encounter Goals Goal [...] documented as of this encounter Care Teams Forestry Workers Relationship Specialty Start Date End Date Name, MD Kiel [address] [place] [address] PCP - General Family Medicine 07/15/15 Puia, Katlyn, PharmD [address] [place] [address] Pharmacist Internal Medicine 10/08/22 Marta Ovalle Body Care ManagerDirector Pharmacy Services 05/25/23 documented as of this encounter
--- OUTSIDE RECORDS SUMMARY | 2024-04-06 14:34 | XMS_ITS | Clinical Summary ---
Author Organization [address] [facility] Address [address] [place] [address] Phone Care Team Providers Care Spa Concierge Name Role Phone Name, Kiel BAILEY Primary Care Provider [phone] Allergies Active Allergy Reactions Criticality Noted Date Comments Penicillins Swelling 06/05/2009 Medications metoprolol succinate (TOPROL-XL) 25 mg 24 hr tablet Take 1 tablet (25 mg total) by mouth 1 (one) time each day. 08/27/19 16 Active insulin glargine (LANTUS) 100 unit/mL injection Inject 36 Units under the skin at bedtime. Active montelukast (SINGULAIR) 10 mg tablet TAKE ONE TABLET BY MOUTH AT BEDTIME 06/23/19 16 Active isopropyl alcohol-benzocain e 70-6 % pads, medicated USE TO TEST FINGER STICK BLOOD SUGAR TWICE DAILY 06/23/19 16 Active medical supply, miscellaneous (MISCELLANEOUS MEDICAL SUPPLY MISC) ULTICARE SHORT PEN NEEDLES 31G X 8 MM USE FOUR TIMES DAILY TO INJECT insulin WITH A MEAL AND AT BEDTIME 06/23/19 16 Active blood sugar diagnostic (FreeStyle Lite Strips) test strip USE TO TEST FINGER STICK BLOOD SUGAR TWICE DAILY DIRECTED 06/23/19 16 Active medical supply, miscellaneous (MISCELLANEOUS MEDICAL SUPPLY MISC) MISC. DEVICES (COMMODE BEDSIDE) MISC 1 Device by Does not apply route as needed (voiding/bm). 12/11/19 15 Active ASPIRIN ORAL Take 1 Tab by mouth daily. 11/28/19 15 Active lancets (Sure Comfort Lancets) 30 gauge misc USE TO TEST FINGER STICK BLOOD SUGAR TWICE DAILY 09/12/19 15 Active FREESTYLE LANCETS MISC 1 Each by Does not apply route 2 times daily. 05/18/19 13 Active diclofenac (Voltaren Arthritis Pain) 1 % topical gel Apply once a day to the affected hand 11/10/19 12 Active blood-glucose meter kit Use to test bs twice daily 10/14/19 12 Active calcium carbonate-vitamin D3 600 mg-5 mcg (200 unit) per tablet Take 1 Tab by mouth 2 times daily. 08/18/19 11 Active loratadine (CLARITIN) 10 mg tablet 1 TABLET DAILY Activ e famotidine (PEPCID) 20 mg tablet Take 1 tablet (20 mg total) by mouth 2 times daily. 11/28/19 24 Active furosemide (LASIX) 20 mg tablet Take [...] Do not crush, chew, or split. Active ipratropium-albut Nissa (DUONEB) 0.5-2.5 mg/3 mL nebulizer solution Take 3 mL by nebulization 4 (four) times a day for 10 days. 120 mL 02/06/20 24 Active budesonide (PULMICORT) 0.5 mg/2 mL nebulizer solution Take 2 mL (0.5 mg total) by nebulization 2 (two) times a day for 10 days. Rinse mouth with water after use to reduce aftertaste and incidence of candidiasis. Do not swallow. 40 mL 02/06/20 24 Active nicotine (NICODERM CQ) 21 mg/[address] 1 patch on the skin 1 (one) time each day. 30 each 02/07/20 24 Active OXcarbazepine (TRILEPTAL) 300 mg tablet Take 1 tablet (300 mg total) by mouth at bedtime. Take with 150 mg tablet to equal 450 mg at HS 0 02/06/20 24 Active OXcarbazepine (TRILEPTAL) 150 mg tablet Take 1 tablet (150 mg total) by mouth 2 (two) times a day. 02/06/20 24 Active Active Problems Problem Noted Date Diagnosed Date COPD exacerbation 02/05/2024 Abnormal nuclear stress test 11/06/2014 Rib fracture 12/24/2013 Overview (12/12/2023): Non displaced, probable froacture on the right ninth and tenth Abdominal pain 08/15/2013 Lipoma of abdominal wall 11/02/2011 Visual field defect 03/29/2011 Cocaine abuse, episodic use 06/17/2010 Low back pain radiating to left leg 10/08/2009 Overview (12/12/2023): The patient follows with [facility] and is treated with [...] EST - 02/06/2024 12:30 PM EST Emergency [facility] [address] [place] [id number] Dada Ceja MD Bukalo, MD Renée Potts Alistair A, MD COPD exacerbation (CMS/HCC) (Primary [...] TOTAL HYSTERECTOMY WITH BSO; COMMENT: for bleeding, [facility] Medical History Medical History Date Comments [...] Name Status Comments Brother 1 Brother 2 [place] Brother 3 Alive 6 brothers are diabetic [...] on file Sexual Orientation Not on file Obstetrics History Last Filed [...] Completed 10/08/2022, 02/05/2018, 10/03/2013, Additional history exists Pneumococcal Vaccine: Pediatrics (0 to 5 Years) [...] patient's age to complete this topic Meningococcal B Vacine Aged Out No lo nger eligible based on patient's age to complete [...] 100 mg/dL 02/06/2024 11:09 AM EST [facility] Blood Capillary blood specimen / Unknown 02/06/2024 11:09 AM EST 02/06/2024 11:10 AM EST Adrian Chinchilla MD LAB POINT OF CARE TE ST DOCKED DEVICE UNSOLICITED RESULTS Final Result [facility] [address] [place] [address], * Troponin I high sensitivity (02/06/2024 4:38 AM EST) Only the most recent of2 resultswithin the time period is included. [facility] High Sensitivity Troponin I 4 <=54 ng/L LAB CHEMISTRY METHOD 02/06/2024 5:37 AM EST [facility] Blood Venous blood specimen / Unknown Venipuncture / Unknown 02/06/2024 4:38 AM EST 02/06/2024 5:04 AM EST Narrative [facility] - 02/06/2024 5:37 AM EST High levels of biotin in samples may falsely decrease hsTroponin values. ??Use caution when interpreting hsTroponin results in patients taking biotin who exhibit renal impairment (eGFR <60) or in patients taking more than 20 mg/day of biotin. us Cindy SEGURA LAB BLOOD ORDERABLES Final R esult Performing Organization Address City/[facility]/ZIP Co de Phone Number [facility] [address] [place] [address], [place] [phone] * Light blue tube (02/06/2024 2:59 AM EST) Pathologist [facility] Extra Tube Hold for add-ons. 02/06/2024 5:01 AM EST [facility] Comment:Auto resulted. Blood Venous blood specimen / Unknown 02/06/2024 2:59 AM EST 02/06/2024 3:14 AM EST us Delroy Jimenez MD LAB BLOOD ORDERABLES Final Res ult Performing Organization Address [facility]/ZIP Co de Phone Number [facility] [address] [place] [address], [place] [phone] * (ABNORMAL) Complete blood count (02/06/2024 2:59 AM EST) WBC 10.0 4.8 - 10.8 K/mcL LAB HEMETOLOGY METHOD 02/06/2024 3:26 AM EST [facility] RBC 4.40 3.80 - 4.80 M/mcL LAB HEMETOLOGY METHOD 02/06/2024 3:26 AM EST [facility] Hemoglobin 12.2 11.5 - 16.0 g/dL LAB HEMETOLOGY METHOD 02/06/2024 3:26 AM EST [facility] Hematocrit 38.9 35.0 - 47.0 % LAB HEMETOLOGY METHOD 02/06/2024 3:26 AM EST [facility] MCV 88.4 79.0 - 98.0 FL LAB HEMETOLOGY METHOD 02/06/2024 3:26 AM EST [facility] MCH 27.7 27.0 - 32.0 pcg LAB HEMETOLOGY METHOD 02/06/2024 3:26 AM EST [facility] MCHC 31.4(L) 32.0 - 37.0 g/dL LAB HEMETOLOGY METHOD 02/06/2024 3:26 AM EST [facility] RDW 13.2 11.0 - 15.0 % LAB HEMETOLOGY METHOD 02/06/2024 3:26 AM EST [facility] Platelets 175 130 - 400 K/mcL LAB HEMETOLOGY METHOD 02/06/2024 3:26 AM EST [facility] MPV 12.4(H) 7.0 - 11.0 FL LAB HEMETOLOGY METHOD 02/06/2024 3:26 AM EST [facility] NRBC 0.0 <1.0 % LAB HEMETOLOGY METHOD 02/06/2024 3:26 AM EST [facility] NRBC Absolute 0.00 <0.10 K/mcL LAB HEMETOLOGY METHOD 02/06/2024 3:26 AM EST [facility] Blood Venous blood specimen / Unknown Venipuncture / Unknown 02/06/2024 2:59 AM EST 02/06/2024 3:13 AM EST us Cindy SEGURA LAB BLOOD ORDERABLES Final R esult [facility] [address] [place] [address], * (ABNORMAL) Basic metabolic panel (02/06/2024 2:59 AM EST) Only the most recent of2 resultswithin the time period is included. Sodium 136 133 - 145 mmol/L LAB CHEMISTRY METHOD 02/06/2024 3:36 AM [facility] Potassium 4.1 3.5 - 5.5 mmol/L LAB CHEMISTRY METHOD 02/06/2024 3:36 AM [facility] Chloride 104 96 - 110 mmol/L LAB CHEMISTRY METHOD 02/06/2024 3:36 AM [facility] CO2 23 21 - 32 mmol/L LAB CHEMISTRY METHOD 02/06/2024 3:36 AM [facility] Anion Gap 9 3 - 11 LAB CHEMISTRY METHOD 02/06/2024 3:36 AM [facility] Glucose 244(H) 70 - 100 mg/dL LAB CHEMISTRY METHOD 02/06/2024 3:36 AM [facility] BUN 17 5 - 25 mg/dL LAB CHEMISTRY METHOD 02/06/2024 3:36 AM [facility] Creatinine 0.71 0.50 - 1.10 mg/dL LAB CHEMISTRY METHOD 02/06/2024 3:36 AM [facility] eGFR 99 >=60 mL/min/1. 73m2 LAB CHEMISTRY METHOD 02/06/2024 3:36 AM [facility] Comment:Calculation based on the??Chronic Kidney Disease Epidemiology Collaboration (CKD-EPI) equation refit??without adjustment for race. BUN/Creatinine Ratio 23.9 LAB CHEMISTRY METHOD 02/06/2024 3:36 AM [facility] Calcium 9.3 8.5 - 10.5 mg/dL LAB CHEMISTRY METHOD 02/06/2024 3:36 AM [facility] Blood Venous blood specimen / Unknown Venipuncture / Unknown 02/06/2024 2:59 AM EST 02/06/2024 3:13 AM EST us Cindy SEGURA LAB BLOOD ORDERABLES Final R esult [facility] [address] [place] [address], [place] [phone] * XR Chest 2 Views (02/05/2024 7:17 [...] Signed Date: 02/05/2024 08:11 ET Workstation ID: [id number] Transcribed By: Self Edit Transcribed Date: 02/05/2024 [...] Signed Date: 02/05/2024 08:11 ET Workstation ID: [id number] Transcribed By: Self Edit Transcribed Date: 02/05/2024 08:11 ET us Kathy Nazario MD IMG XR PROCEDURES Final Result * ECG 12 lead (02/05/2024 7:01 AM EST) Ventricular Rate ECG 80 BPM GEMUSE Atrial Rate 80 BPM GEMUSE P-R Interval 130 ms GEMUSE QRS Duration 96 ms GEMUSE Q-T Interval 344 ms GEMUSE QTc 396 ms GEMUSE P Wave Wister 21 degrees GEMUSE R Wister -9 degrees GEMUSE T Wister 3 degrees GEMUSE ECG Interpretation Normal sinus rhythm Voltage criteria for left ventricular hypertrophy Abnormal ECG When compared with ECG of 06-OCT-2023 08:32, No significant change was found Confirmed by Abeba ROCHA JAMES ([id number]) on 02/05/2024 6:18:14 PM GEMUSE 02/05/2024 7:01 AM EST 02/05/2024 6:18 PM EST us Kathy Nazario MD ECG ORDERABLES Final Re sult GEMUSE * (ABNORMAL) CBC auto differential (02/05/2024 6:55 AM EST) WBC 9.1 4.8 - 10.8 K/mcL LAB HEMETOLOGY METHOD 02/05/2024 7:16 AM [facility] RBC 5.00(H) 3.80 - 4.80 M/[facility] LAB HEMETOLOGY METHOD 02/05/2024 7:16 AM [facility] Hemoglobin 13.8 11.5 - 16.0 g/dL LAB HEMETOLOGY METHOD 02/05/2024 7:16 AM [facility] Hematocrit 43.7 35.0 - 47.0 % LAB HEMETOLOGY METHOD 02/05/2024 7:16 AM [facility] MCV 87.1 79.0 - 98.0 FL LAB HEMETOLOGY METHOD 02/05/2024 7:16 AM [facility] MCH 27.5 27.0 - 32.0 pcg LAB HEMETOLOGY METHOD 02/05/2024 7:16 AM [facility] MCHC 31.6(L) 32.0 - 37.0 g/dL LAB HEMETOLOGY METHOD 02/05/2024 7:16 AM [facility] RDW 13.3 11.0 - 15.0 % LAB HEMETOLOGY METHOD 02/05/2024 7:16 AM [facility] Platelets 200 130 - 400 K/mcL LAB HEMETOLOGY METHOD 02/05/2024 7:16 AM [facility] MPV 12.4(H) 7.0 - 11.0 FL LAB HEMETOLOGY METHOD 02/05/2024 7:16 AM [facility] NRBC 0.0 <1.0 % LAB HEMETOLOGY METHOD 02/05/2024 7:16 AM [facility] NRBC Absolute 0.00 <0.10 K/mcL LAB HEMETOLOGY METHOD 02/05/2024 7:16 AM [facility] Neutrophils Relative 64.1 % LAB HEMETOLOGY METHOD 02/05/2024 7:16 AM [facility] Lymphocytes Relative 27.9 % LAB HEMETOLOGY METHOD 02/05/2024 7:16 AM [facility] Monocytes Relative 6.5 % LAB HEMETOLOGY METHOD 02/05/2024 7:16 AM [facility] Eosinophils Relative 0.7 % LAB HEMETOLOGY METHOD 02/05/2024 7:16 AM [facility] Basophils Relative 0.6 % LAB HEMETOLOGY METHOD 02/05/2024 7:16 AM [facility] Immature Granulocytes Relative 0.2 % LAB HEMETOLOGY METHOD 02/05/2024 7:16 AM [facility] Neutrophils Absolute 5.82 1.50 - 7.00 K/mcL LAB HEMETOLOGY METHOD 02/05/2024 7:16 AM [facility] Lymphocytes Absolute 2.53 1.00 - 5.00 K/mcL LAB HEMETOLOGY METHOD 02/05/2024 7:16 AM EST [facility] Monocytes Absolute 0.59 0.20 - 1.00 K/mcL LAB HEMETOLOGY METHOD 02/05/2024 7:16 AM EST [facility] Eosinophils Absolute 0.06 0.00 - 0.50 K/mcL LAB HEMETOLOGY METHOD 02/05/2024 7:16 AM EST [facility] Basophils Absolute 0.05 0.00 - 0.20 K/mcL LAB HEMETOLOGY METHOD 02/05/2024 7:16 AM [facility] Immature Granulocytes Absolute 0.02 0.00 - 0.03 K/mcL LAB HEMETOLOGY METHOD 02/05/2024 7:16 AM [facility] Blood Venous blood specimen / Unknown Venipuncture / Unknown 02/05/2024 6:55 AM EST 02/05/2024 7:05 AM EST Kathy Nazario MD LAB BLOOD ORDERABLES Fin al Result [facility] [address] [place] [address], * Respiratory virus panel molecular study (02/05/2024 6:51 AM EST) Adenovirus Detection by PCR Not Detected Not Detected LAB MICROBIOLOGY METHOD 02/05/2024 8:09 AM EST [facility] Influenza A PCR Not Detected Not Detected LAB MICROBIOLOGY METHOD 02/05/2024 8:09 AM [facility] Influenza B PCR Not Detected Not Detected LAB MICROBIOLOGY METHOD 02/05/2024 8:09 AM EST [facility] Coronavirus 229E Not Detected Not Detected LAB MICROBIOLOGY METHOD 02/05/2024 8:09 AM [facility] Coronavirus HKU1 Not Detected Not Detected LAB MICROBIOLOGY METHOD 02/05/2024 8:09 AM EST [facility] Coronavirus OC43 Not Detected Not Detected LAB MICROBIOLOGY METHOD 02/05/2024 8:09 AM [facility] Coronavirus NL63 Not Detected Not Detected LAB MICROBIOLOGY METHOD 02/05/2024 8:09 AM [facility] Parainfluenza Virus 1 Not Detected Not Detected LAB MICROBIOLOGY METHOD 02/05/2024 8:09 AM [facility] Parainfluenza Virus 2 Not Detected Not Detected LAB MICROBIOLOGY METHOD 02/05/2024 8:09 AM [facility] Parainfluenza Virus 3 Not Detected Not Detected LAB MICROBIOLOGY METHOD 02/05/2024 8:09 AM [facility] Parainfluenza Virus 4 Not Detected Not Detected LAB MICROBIOLOGY METHOD 02/05/2024 8:09 AM [facility] RSV PCR Not Detected Not Detected LAB MICROBIOLOGY METHOD 02/05/2024 8:09 AM [facility] Human Metapneumovirus A and B Not Detected Not Detected LAB MICROBIOLOGY METHOD 02/05/2024 8:09 AM [facility] Rhinovirus/Entero virus Not Detected Not Detected LAB MICROBIOLOGY METHOD 02/05/2024 8:09 AM [facility] Bordetella pertussis Not Detected Not Detected LAB MICROBIOLOGY METHOD 02/05/2024 8:09 AM [facility] Bordetella parapertussis Not Detected Not Detected LAB MICROBIOLOGY METHOD 02/05/2024 8:09 AM [facility] Mycoplasma pneumo by PCR Not Detected Not Detected LAB MICROBIOLOGY METHOD 02/05/2024 8:09 AM [facility] Chlamydia pneumoniae Not Detected Not Detected LAB MICROBIOLOGY METHOD 02/05/2024 8:09 AM [facility] SARS COV-2 Not Detected Not Detected LAB MICROBIOLOGY METHOD 02/05/2024 8:09 AM [facility] Swab Both anterior nares / Unknown Non-blood Collection / Unknown 02/05/2024 6:51 AM EST 02/05/2024 7:05 AM EST Narrative [facility] - 02/05/2024 8:09 AM EST Testing was performed using the judge.me Respiratory Pathogen PCR Assay. All results must [...] that are below the limit of detection. Result [facility] Kathy Nazario MD LAB MICROBIOLOGY - GENER AL ORDERABLES Final Result [facility] [address] [place] [address], * ECG-Annotated (02/05/2024) Result [facility] Provider Onbase ECG ORDERABLES Final Result * (ABNORMAL) Hemoglobin A1c (11/20/2014) Pathologist [facility] Hemoglobin A1C 7.5(A) 4.0 - 6.0 % Blood Venous blood specimen / Unknown Result [facility] Provider LAB BLOOD ORDERABLES Alis l Result * Urine Albumin Creatinine Ratio (05/10/2014) Pathologist [facility] Urine Albumin Creatinine Ratio abstracted Result [facility] Historical Provider HEALTH MAINTENANCE Final Result * (ABNORMAL) Lipid panel (05/10/2014) Pathologist [facility] LDL/HDL Ratio 4 0 - 4 Triglycerides 360(A) 0 - 150 mg/dL Cholesterol 179 0 - 200 mg/dL HDL 42 >=40 mg/dL LDL Cholesterol 65 0 - 100 mg/dL Blood Venous blood specimen / Unknown Result [facility] Historical Provider LAB BLOOD ORDERABLES Alis l Result * Hepatitis C Screening (10/10/2013) Hepatitis C Screening abstracted us Historical Provider MD HEALTH MAINTENANCE Final Result from Last 3 Months or Most Recently Relevant to Health Maintenance Insurance MEDICAID - [place] Advance Directives * Full Code - Default [...] currently active code status orders. Care Teams Spa Concierge Relationship Specialty Start Date End Date Name, MD Kiel [address] [place], [place] PCP - General Internal Medicine 08/28/15
--- OUTSIDE RECORDS SUMMARY | 2024-04-06 14:34 | XMS_ITS | Encounter Summary ---
Author Organization [employer] Address [address] [place] [address] Care Team Providers Care Plastics Production Machine Operator Name Role Phone Name, Kiel BAILEY Primary Care Provider [phone] Katlyn Rodriguez PharmD Unavailable [phone] Encounter Details Date Type Department Care Team ([facility] Contact Info) Description 03/26/2024 Telephone [facility] [address] [place], [place] [phone] Name, MD Kiel [address] [place] [address] Social History Tobacco Use Types Packs/Day Years [...] Description 04/10/2024 9:00 AM EST Clinical Support [facility] [address] [place] [id number] Opal Steiner RN 05/07/2024 10:30 AM EDT Medication Management [facility] [address] [place] [phone] Puia, Katlyn, PharmD [address] [place] [phone] documented as of this encounter Goals Goal Patient Goal Type Associated Problems Recent Progress Patient-Stated? Author Record your blood pressure once per day Blood Pressure No Puia, Katlyn, PharmD Blood Pressure < 140/90 Blood Pressure 113/64(2024 10:47 AM EST) No Puia, Katlyn, PharmD Hemoglobin A1c < 7 Result Component 7.5(02/04/202 5 10:50 AM EST) No AdeniaKatlyn, PharmD Record your blood sugar as directed Result Component No Katlyn Rodriguez, PharmD documented as of this encounter Visit Diagnoses Not on filedocumented in this encounter Additional Health Concerns Assessment Noted Time PHQ-9 Depression Total Score: 4 09/02/19 24 10:30 AM EDT documented as of this encounter Care Teams Plastics Production Machine Operator Relationship Specialty Start Date End Date Name, MD Kiel [address] [place] [address] PCP - General Family Medicine 07/15/15 Katlyn Rodriguez, PharmD [address] [place] [address] Pharmacist Internal Medicine 10/08/22 Marta Ovalle Datapower DeveloperStudent Advisor 05/25/23 documented as of this encounter
--- OUTSIDE RECORDS SUMMARY | 2024-04-06 14:34 | XMS_ITS | Encounter Summary ---
Author Organization [facility] Address [address] [place] [address] Care Team Providers Care Manager Telecom Name Role Phone Name, Kiel BAILEY Primary Care Provider Encounter Details Date Type Department Care Team (Late st Contact Info) Description 11/24/2023 9:53 AM EDT Hospital Encounter TH HISTORIC ENCOUNTERS EASTERN CONVERSION ONLY Geoffrey-Art Vitale MD [address] [place] [address] Social History Tobacco Use Types [...] 2:17 PM Encounter Date: 11/24/2023 Status: Signed Motorboat Operator: Art Davis MD (Physician) CHIEF COMPLAINT: Chief Complaint Patient presents with ? Follow-up Diffuse large B-cell lymphoma Stage III Completed 6 cycles of R-CHOP in July 23, 2018 IDENTIFIER:Sarita Puga is a 58 y.o. female. HPI: The patient returns for follow up of Large B-cell lymphoma. Here with her daughter , who is welsh to [place] citizen sign language interpreter Patient reports that she [...] accompanied by her daughter and girlfriend. As Martiniquais to Arabic sign language interpreter assisted with the discussion. [...] her neck. She was evaluated by Shirin Mroaes PA-C 2 weeks ago. Patient had restaging [...] as of this encounter Care Teams Manager Telecom Relationship Specialty Start Date End Date Name, MD Kiel [address] [place], [place] PCP - General Internal Medicine 08/28/15 documented as of this encounter
--- OUTSIDE RECORDS SUMMARY | 2024-04-06 14:34 | XMS_ITS | Encounter Summary ---
Author Organization [facility] Address [address] [place] [address] Care Team Providers Care Assistant County Engineer Name Role Phone Name, Kiel BAILEY Primary Care Provider Unavailabl e Name, Kiel BAILEY Primary Care Provider Unavailabl e Philly Vela DO Primary Care Pro vider Unavailable Name, Kiel BAILEY Primary Care Provider Unavailabl e Encounter Details Date Type Department Care Team Description 01/04/2011 [facility] Consultant Report Medical Records [address] [place] [id number] Shon Blanca Social History Tobacco Use Types [...] on filedocumented in this encounter Care Teams Assistant County Engineer Relationship Specialty Start Date End Date Deena, MD Kiel PCP - General 05/26/09 04/27/15 Kiel Shaffer MD PCP - General Internal Medicine 04/28/15 05/05/15 Philly Vela DO PCP - General Internal Medicine 05/06/15 08/27/15 Kiel Shaffer MD PCP - General Internal Medicine 08/28/15 documented as of this encounter
--- OUTSIDE RECORDS SUMMARY | 2024-04-06 14:34 | XMS_ITS | Encounter Summary ---
Author Organization [employer] Address [address] [place] [address] Care Team Providers Care Human Resource Statistician Name Role Phone Name, Kiel BAILEY Primary Care Provider [phone] Katlyn Rodriguez PharmD Unavailable [phone] Reason for Visit * Reason Comments Med Refill Encounter Details Date Type Department Care Team ([facility] Contact Info) Description 03/21/2024 Refill [facility] [address] [place] [address] [phone] Name, MD Kiel [address] [place] [address] Urticaria Social History Tobacco Use Types Packs/Day [...] 9:00 AM EST Clinical Support [facility] [address] [place] [phone] Opal Steiner RN 05/07/2024 10:30 AM EDT Medication Management [address] [address] Puia, Katlyn, PharmD [address] [place] [phone] documented as of this encounter Goals Goal [...] documented as of this encounter Care Teams Human Resource Statistician Relationship Specialty Start Date End Date Name, MD Kiel [address] [place] [address] PCP - General Family Medicine 07/15/15 Katlyn Rodriguez, Bin [address] [place] [address] Pharmacist Internal Medicine 10/08/22 Marta Ovalle Gambling SupervisorReading Tutor 05/25/23 documented as of this encounter
--- OUTSIDE RECORDS SUMMARY | 2024-04-06 14:35 | XMS_ITS | Encounter Summary ---
Author Organization [facility] Address [address] [place] [address] Care Team Providers Care Tin Cutter Name Role Phone Name, Kiel BAILEY Primary Care Provider Unavailabl e Name, Kiel BAILEY Primary Care Provider Unavailabl e Philly Vela DO Primary Care Pro vider Unavailable Name, Kiel BAILEY Primary Care Provider Unavailabl e Encounter Details Date Type Department Care Team Description 11/17/2013 Transfer Records Medical Records [address] [place] [address] Abstract, Provider Social History Tobacco Use Types [...] on filedocumented in this encounter Care Teams Tin Cutter Relationship Specialty Start Date End Date Kiel Shaffer MD PCP - General 05/26/09 04/27/15 Kiel Shaffer MD PCP - General Internal Medicine 04/28/15 05/05/15 Philly Vela DO PCP - General Internal Medicine 05/06/15 08/27/15 Kiel Shaffer MD PCP - General Internal Medicine 08/28/15 documented as of this encounter
--- OUTSIDE RECORDS SUMMARY | 2024-04-06 14:35 | XMS_ITS | Encounter Summary ---
[facility] Organization [facility] Address [address] [place] [address] Care Team Providers Care Wireless Field Technician Name Role Phone Name, Kiel BAILEY Primary Care Provider Unavailabl e Name, Kiel BAILEY Primary Care Provider Unavailabl e Philly Vela DO Primary Care Pro vider Unavailable Name, Kiel BAILEY Primary Care Provider Unavailabl e Encounter Details Date Type Department Care Team Description 02/25/2013 Hospital Medical Records [address] [place] [address] Gaviota Moody MD Social History Tobacco Use [...] filedocumented in this encounter Care Teams Wireless Field Technician Relationship Specialty Start Date End Date Kiel Shaffer MD PCP - General 05/26/09 04/27/15 Kiel Shaffer MD PCP - General Internal Medicine 04/28/15 05/05/15 Philly Vela DO PCP - General Internal Medicine 05/06/15 08/27/15 Kiel Shaffer MD PCP - General Internal Medicine 08/28/15 documented as of this encounter
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
--- OUTSIDE RECORDS SUMMARY | 2024-04-06 14:35 | XMS_ITS | Encounter Summary ---
[facility] Address [address] [place] [address] Care Team Providers Care Transit Operator Name Role Phone Name, Kiel BAILEY Primary Care Provider Unavailabl e Name, Kiel BAILEY Primary Care Provider Unavailabl e Philly Vela DO Primary Care Pro vider Unavailable Name, Kiel BAILEY Primary Care Provider Unavailabl e Encounter Details Date Type Department Care Team Description 04/17/2010 Hospital Medical Records [address] [place] [address] Diego Hernandez Social History Tobacco Use Types Packs/Day Years [...] on filedocumented in this encounter Care Teams Transit Operator Relationship Specialty Start Date End Date Kiel Shaffer MD PCP - General 05/26/09 04/27/15 Kiel Shaffer MD PCP - General Internal Medicine 04/28/15 05/05/15 Philly Vela DO PCP - General Internal Medicine 05/06/15 08/27/15 Kiel Shaffer MD PCP - General Internal Medicine 08/28/15 documented as of this encounter
--- OUTSIDE RECORDS SUMMARY | 2024-04-06 14:35 | XMS_ITS | Encounter Summary ---
[facility] Organization [facility] Address [address] [place] [address] Care Team Providers Care Legal Operations Manager Name Role Phone Name, Kiel BAILEY Primary Care Provider Unavailabl e Name, Kiel BAILEY Primary Care Provider Unavailabl e Philly Vela DO Primary Care Pro vider Unavailable Name, Kiel BAILEY Primary Care Provider Unavailabl e Encounter Details Date Type Department Care Team Description 02/23/2013 Hospital Medical Records [address] [place] [address] Desilets, Shamir Mims MD Social History Tobacco [...] on filedocumented in this encounter Care Teams Legal Operations Manager Relationship Specialty Start Date End Date Kiel Shaffer MD PCP - General 05/26/09 04/27/15 Kiel Shaffer MD PCP - General Internal Medicine 04/28/15 05/05/15 Philly Vela DO PCP - General Internal Medicine 05/06/15 08/27/15 Kiel Shaffer MD PCP - General Internal Medicine 08/28/15 documented as of this encounter
--- OUTSIDE RECORDS SUMMARY | 2024-04-06 14:35 | XMS_ITS | Encounter Summary ---
[facility] Address [address] [place] [address] Care Team Providers Care Assistant Front Office Manager Name Role Phone Name, Kiel BAILEY Primary Care Provider Unavailabl e Name, Kiel BAILEY Primary Care Provider Unavailabl e Philly Vela DO Primary Care Pro vider Unavailable Name, Kiel BAILEY Primary Care Provider Unavailabl e Encounter Details Date Type Department Care Team Description 12/12/2012 Bottle Feeder Report Medical Records [address] [place] [address] Zack Castro Social History Tobacco Use Types [...] filedocumented in this encounter Care Teams Assistant Front Office Manager Relationship Specialty Start Date End Date Kiel Shaffer MD PCP - General 05/26/09 04/27/15 Kiel Shaffer MD PCP - General Internal Medicine 04/28/15 05/05/15 Philly Vela DO PCP - General Internal Medicine 05/06/15 08/27/15 Kiel Shaffer MD PCP - General Internal Medicine 08/28/15 documented as of this encounter
--- OUTSIDE RECORDS SUMMARY | 2024-04-06 14:35 | XMS_ITS | Encounter Summary ---
Author Organization [facility] Address [address] [place] [address] Care Team Providers Care Academic Affairs Assistant Name Role Phone Name, Kiel BAILEY Primary Care Provider Unavailabl e Name, Kiel BAILEY Primary Care Provider Unavailabl e Philly Vela DO Primary Care Pro vider Unavailable Name, Kiel BAILEY Primary Care Provider Unavailabl e Encounter Details Date Type Department Care Team Description 07/09/2010 Teasel Gig Operator Report Medical Records [address] [place] [address] Shon Blanca Social History Tobacco Use Types [...] on filedocumented in this encounter Care Teams Academic Affairs Assistant Relationship Specialty Start Date End Date Kiel Shaffer MD PCP - General 05/26/09 04/27/15 Kiel Shaffer MD PCP - General Internal Medicine 04/28/15 05/05/15 Philly Vela DO PCP - General Internal Medicine 05/06/15 08/27/15 Kiel Shaffer MD PCP - General Internal Medicine 08/28/15 documented as of this encounter
--- OUTSIDE RECORDS SUMMARY | 2024-04-06 14:35 | XMS_ITS | Encounter Summary ---
[facility] Address [address] [place] [address] Care Team Providers Care Infection Control Coordinator Name Role Phone Name, Kiel BAILEY Primary Care Provider Unavailabl e Name, Kiel BAILEY Primary Care Provider Unavailabl e Philly Vela DO Primary Care Pro vider Unavailable Name, Kiel BAILEY Primary Care Provider Unavailabl e Encounter Details Date Type Department Care Team Description 12/08/2009 Night Triage Doc Medical Records [address] [place] [address] Abstract, Provider Social History Tobacco Use Types [...] on filedocumented in this encounter Care Teams Infection Control Coordinator Relationship Specialty Start Date End Date Kile Shaffer MD PCP - General 05/26/09 04/27/15 Kiel Shaffer MD PCP - General Internal Medicine 04/28/15 05/05/15 Philly Vela DO PCP - General Internal Medicine 05/06/15 08/27/15 Kiel Shaffer MD PCP - General Internal Medicine 08/28/15 documented as of this encounter
--- OUTSIDE RECORDS SUMMARY | 2024-04-06 14:35 | XMS_ITS | Encounter Summary ---
Author Organization [facility] Address [address] [place] [address] Care Team Providers Care Appraiser Land Name Role Phone Name, Kiel BAILEY Primary Care Provider Unavailabl e Name, Kiel BAILEY Primary Care Provider Unavailabl e Philly Vela DO Primary Care Pro vider Unavailable Name, Kiel BAILEY Primary Care Provider Unavailabl e Encounter Details Date Type Department Care Team Description 07/31/2013 Family Practice Nurse Practitioner Report Medical Records [address] [place] [address] Quinton Luther Social History Tobacco Use Types [...] on filedocumented in this encounter Care Teams Appraiser Land Relationship Specialty Start Date End Date Kiel Shaffer MD PCP - General 05/26/09 04/27/15 Kiel Shaffer MD PCP - General Internal Medicine 04/28/15 05/05/15 Philly Vela DO PCP - General Internal Medicine 05/06/15 08/27/15 Kiel Shaffer MD PCP - General Internal Medicine 08/28/15 documented as of this encounter
--- OUTSIDE RECORDS SUMMARY | 2024-04-06 14:35 | XMS_ITS | Encounter Summary ---
Author Organization [employer] Address [address] [facility] 7t [place] [address] Care Team Providers Care Supervisor Hospitality House Name Role Phone Name, Kiel BAILEY Primary Care Provider [phone] Katlyn Rodriguez PharmD Unavailable [phone] Reason for Visit * Reason Onset Date Comments Durable Medical Equipment 01/24/2023 Encounter Details Date Type Department Care Team ([facility] st Contact Info) Description 01/24/2023 Telephone [facility] MEDICINE [address] [place] [address] Name, MD Kiel [address] [place] [address] Durable Medical Equipment Social History Tobacco Use [...] to errol. Any questions, contact pt at [phone] documented in this encounter Plan of Treatment Upcoming Encounters Date Type Department Care Team (Late st Contact Info) Description 04/10/2024 9:00 AM EST Clinical Support [facility] MEDICINE [address] [place] [address] Opal Steiner RN 05/07/2024 10:30 AM EDT Medication Management [facility] MEDICINE [address] [place] [address] Puia, Katlyn, PharmD [address] [place] [address] documented as of this encounter Goals Goal [...] documented as of this encounter Care Teams Supervisor Hospitality House Relationship Specialty Start Date End Date Name, MD Kiel [address] [place] [address] PCP - General Family Medicine 07/15/15 Katlyn Rodriguez PharmD [address] [place] [address] Pharmacist Internal Medicine 10/08/22 Marta Ovalle Earth Science ProfessorSheet Metal Erector 05/25/23 documented as of this encounter
--- OUTSIDE RECORDS SUMMARY | 2024-04-06 14:35 | XMS_ITS | Encounter Summary ---
[facility] Organization [facility] Address [address] [place] [address] Care Team Providers Care Keycase Assembler Name Role Phone Name, Kiel BAILEY Primary Care Provider Unavailabl e Name, Kiel BAILEY Primary Care Provider Unavailabl e Philly Vela DO Primary Care Pro vider Unavailable Name, Kiel BAILEY Primary Care Provider Unavailabl e Encounter Details Date Type Department Care Team Description 12/11/2009 Permit Technician Report Medical Records [address] [place] [address] Gonzalo Valles MD Social History Tobacco Use [...] on filedocumented in this encounter Care Teams Keycase Assembler Relationship Specialty Start Date End Date Kiel Shaffer MD PCP - General 05/26/09 04/27/15 Kiel Shaffer MD PCP - General Internal Medicine 04/28/15 05/05/15 Philly Vela DO PCP - General Internal Medicine 05/06/15 08/27/15 Kiel Shaffer MD PCP - General Internal Medicine 08/28/15 documented as of this encounter
--- OUTSIDE RECORDS SUMMARY | 2024-04-06 14:35 | XMS_ITS | Encounter Summary ---
Author Organization [facility] Address [address] [place] [address] Care Team Providers Care Track Repair Person Name Role Phone Name, Kiel BAILEY Primary Care Provider Unavailabl e Name, Kiel BAILEY Primary Care Provider Unavailabl e Philly Vela DO Primary Care Pro vider Unavailable Name, Kiel BAILEY Primary Care Provider Unavailabl e Encounter Details Date Type Department Care Team Description 06/01/2010 Roofer Gypsum Report Medical Records [address] [place] [address] Shon Blanca Social History Tobacco Use Types Packs/Day Years Used Date Smoking Tobacco: Former Cigarettes 0.5 15 Q uit: 04/19/2010 Smokeless Tobacco: Never Comments:currently smokes 2 cigs a day Alcohol Use Standard Drinks/Week Comments No 0 (1 standard drink = 0.6 oz pur e alcohol) Sex Assigned at Date Recorded Not on file documented as of this encounter Plan of Treatment Not on file documented as of this encounter Visit Diagnoses Not on filedocumented in this encounter Care Teams Track Repair Person Relationship Specialty Start Date End Date Deena, MD iKel PCP - General 05/26/09 04/27/15 Kiel Shaffer MD PCP - General Internal Medicine 04/28/15 05/05/15 Philly Vela DO PCP - General Internal Medicine 05/06/15 08/27/15 Kiel Shaffer MD PCP - General Internal Medicine 08/28/15 documented as of this encounter
--- OUTSIDE RECORDS SUMMARY | 2024-04-06 14:35 | XMS_ITS | Encounter Summary ---
Author Organization [facility] Address [address] [place] [address] Care Team Providers Care Organ Tuner Name Role Phone Name, Kiel BAILEY Primary Care Provider Unavailabl e Name, Kiel BAILEY Primary Care Provider Unavailabl e Philly Vela DO Primary Care Pro vider Unavailable Name, Kiel BAILEY Primary Care Provider Unavailabl e Encounter Details Date Type Department Care Team Description 11/12/2009 Controlled Substance Contract with Plan Medical Records [address] [place] [address] Abstract, Provider Social History Tobacco Use Types Packs/Day Years Used Date Smoking Tobacco: Former Cigarettes 0.5 15 Q uit: 10/31/2009 Alcohol Use Standard Drinks/Week Comments No 0 (1 standard drink = 0.6 oz pur e alcohol) Sex Assigned at Date Recorded Not on file documented as of this encounter Plan of Treatment Not on file documented as of this encounter Visit Diagnoses Not on filedocumented in this encounter Care Teams Organ Tuner Relationship Specialty Start Date End Date Kiel Shaffer MD PCP - General 05/26/09 04/27/15 Kiel Shaffer MD PCP - General Internal Medicine 04/28/15 05/05/15 Philly Vela DO PCP - General Internal Medicine 05/06/15 08/27/15 Kiel Shaffer MD PCP - General Internal Medicine 08/28/15 documented as of this encounter
--- NOTE | 2024-04-06 15:26 | MHC.EDTECH ---
Tried to draw labs on patient twice, patient stated she is a hard stick. RN is aware.
[2024-04-06 16:35] LABS: MANUAL DIFF FLAG NO
[2024-04-06 16:37] LABS: Basophils Absolute Auto 0.1 X10*3/uL (0.0-0.2); Eosinophils Absolute Auto 0.2 X10*3/uL (0.0-0.4); Eosinophils Percent Auto 2.2 % (0-4); Hematocrit 37.5 % (37.0-47.0); Hemoglobin 12.4 g/dl (12.0-16.0); Imm Gran Abs Auto 0.03 X10*3/uL (0.00-0.03); Imm Gran Pct Auto 0.4 % (0.0-0.4); Lymphocytes Absolute Auto 2.3 X10*3/uL (1.2-4.9); Mean Corpuscular HGB Conc 33.1 g/dl (31.0-35.0); Mean Corpuscular Hemoglobin 28.1 pg (27.0-33.0); Mean Platelet Volume 11.8 fL (9.4-12.3); Monocytes Absolute Auto 0.5 X10*3/uL (0.1-1.2); Monocytes Percent Auto 7.6 % (2-11); Neutrophils Absolute Auto 3.8 x10*3/uL (2.0-8.3); Neutrophils Percent Auto 54.8 % (45-73); Platelet Count 168 X10*3/uL (160-400); Red Blood Count 4.41 X10*6/uL (4.20-5.50); Red Cell Distribution Width 13.3 % (11.0-16.0); White Blood Count 6.9 X10*3/uL (4.8-10.8)
[2024-04-06 17:11] LABS: Alanine Aminotransferase 32 U/L (0-31); Albumin Level 3.6 g/dL (3.5-5.0); Alkaline Phosphatase 62 U/L (39-117); Anion Gap 10 (12-20); Aspartate Amino Transferase 25 U/L (5-31); Bilirubin Direct 0.1 mg/dL (0.0-0.5); Bilirubin Total 0.3 mg/dL (0.0-1.0); Blood Urea Nitrogen 14 mg/dL (9-16); Calcium 8.7 mg/dL (8.4-10.2); Carbon Dioxide 23 mmol/L (22-29); Chloride 107 mmol/L (96-108); Creatinine Clr Calc Pharmacy 127.1; Estimated Glomerular Filt Rate > 60; Glucose Random 125 mg/dL (60-115); Potassium 4.1 mmol/L (3.3-5.1); Sodium 136 mmol/L (135-145)
[2024-04-06] MEDS: iohexoL 350 MG/ML 100 ML INFUS..BTL IV (17:34)
--- NOTE | 2024-04-06 18:24 | PC.NURSE ---
Pt wishes to leave at this time. All imaging has not be resulted. Dr. Bagley to bedside to discuss with Pt.
[2024-04-06 19:49] VITALS: BP 128/78; PULSE 92; RESP 16; TEMP 36.8; O2SAT 96
== END 2024-04-06 19:49 | disposition home or self-care (01) ==
PROVIDERS: Emergency Medicine; Emergency Provider Emergency Medicine; PCP Internal Medicine Geriatric Medicine
DX: S29.011A Strain of muscle and tendon of front wall of thorax, initial encounter (principal); R51.9 Headache, unspecified; R07.89 Other chest pain; M79.602 Pain in left arm; M54.2 Cervicalgia; R10.2 Pelvic and perineal pain; F17.210 Nicotine dependence, cigarettes, uncomplicated; V43.52XA Car driver injured in collision with other type car in traffic accident, initial encounter; Y93.9 Activity, unspecified; Y92.481 Parking lot as the place of occurrence of the external cause; Y99.8 Other external cause status; Z79.899 Other long term (current) drug therapy
CPT/HCPCS: 36415; 70450; 71260; 72125; 73060; 74177; 80048; 80076; 83735; 85025; 96374; 96375; 99284; J2270; J2405; Q9967

== ENCOUNTER → 2024-04-06 14:32 | Outpatient (BNV) | payer OTHER, SELFPAY | PROVIDERS: Emergency Provider Emergency Medicine; PCP Internal Medicine Geriatric Medicine; Visit Provider Radiology Diagnostic Radiology | DX: R10.9 Unspecified abdominal pain (principal); R07.9 Chest pain, unspecified; M54.2 Cervicalgia; S09.90XA Unspecified injury of head, initial encounter; M79.622 Pain in left upper arm | CPT/HCPCS: 70450; 71260; 72125; 73060; 74177 ==

== ENCOUNTER 2024-04-18 15:03 | Outpatient (REF) | payer OTHER, SELFPAY ==
--- NOTE | ~2024-04-18 | US_ITS ---
CLINICAL HISTORY: LT ARM PAIN, SWELLING VENOUS DUPLEX ULTRASOUND LEFT UPPER EXTREMITY Comparison: None Findings: Accessible deep venous segments are fully compressible with normal Doppler color flow and spectral tracings. Accessible superficial venous segments are fully compressible with normal Doppler color flow and spectral tracings. IMPRESSION: 1. Negative for left upper extremity deep or superficial venous thrombosis. This document has been electronically signed by: Jojo Velasquez DO on 04/18/2024 15:59:24
--- OUTSIDE RECORDS SUMMARY | 2024-04-18 18:36 | XMS_ITS | Encounter Summary ---
Author Organization [employer] Address [address] [facility] 7t [place] [address] Care Team Providers Care Elementary Secretary Name Role Phone Name, Kiel BAILEY Primary Care Provider Katlyn Rodriguez PharmD Unavailable [phone] Reason for Visit * Reason Comments Med Refill Encounter Details Date Type Department Care Team ([facility] Contact Info) Description 03/22/2024 Refill [facility] MEDICINE [address] [place] [address] Name, MD Kiel [address] [place] [address] Chronic pain syndrome Social History Tobacco Use [...] Description 05/07/2024 10:30 AM EDT Medication Management [address] [address] Puia, Katlyn, PharmD [address] [place] [address] 07/10/2024 9:00 AM EDT Clinical Support [address] [address] Opal Steiner RN documented as of this encounter Goals Goal Patient Goal Type Associated Problems Recent Progress Patient-Stated? Author Record your blood pressure once per day Blood Pressure No Puia, Katlyn, PharmD Blood Pressure < 140/90 Blood Pressure 120/70(2024 11:11 AM EST) No Puia, Katlyn, PharmD Hemoglobin [...] as of this encounter Care Teams Elementary Secretary Relationship Specialty Start Date End Date Name, MD Kiel [address] [place] [address] PCP - General Family Medicine 07/15/15 Katlyn Rodriguez PharmD [address] [place] [address] Pharmacist Internal Medicine 10/08/22 Marta Ovalle Internal Grinder Set Up OperatorProduction Floater 05/25/23 documented as of this encounter
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
--- OUTSIDE RECORDS SUMMARY | 2024-04-18 18:36 | XMS_ITS | Encounter Summary ---
Author Organization [facility] Address [address] [place] [address] 7t [place] [address] Care Team Providers Care Shear Grinder Operator Name Role Phone Name, Kiel BAILEY Primary Care Provider [phone] Katlyn Rodriguez PharmD Unavailable [phone] Encounter Details Date Type Department Care Team ([facility] Contact Info) Description 08/26/2022 Orders Only [facility] [address] [place] [phone] Leia Gonzales LPN Social History Tobacco [...] Upcoming Encounters Date Type Department Care Team ([facility] Contact Info) Description 05/07/2024 10:30 AM EDT Medication Management [facility] [address] [place] [address] [phone] Katlyn Rodriguez PharmD [facility] [place] [address] 07/10/2024 9:00 AM EDT Clinical Support [facility] [place] [address] Opal Steiner, RN documented as of this encounter Visit Diagnoses Not on filedocumented in this encounter Additional Health Concerns Assessment Noted Time PHQ-9 Depression Total Score: 7 07/15/19 23 2:39 PM EDT documented as of this encounter Care Teams Shear Grinder Operator Relationship Specialty Start Date End Date [place], [place] [address] PCP - General Family Medicine 07/15/15 Katlyn Rodriguez, AngieD [facility] [place] [address] Pharmacist Internal Medicine 10/08/22 Marta Ovalle Harness InstallerFurniture Sander 05/25/23 documented as of this encounter
--- OUTSIDE RECORDS SUMMARY | 2024-04-18 18:36 | XMS_ITS | Encounter Summary ---
Author Organization [employer] Address [address] [place] [address] Care Team Providers Care Twisthand Name Role Phone Name, Kiel BAILEY Primary Care Provider [phone] Katlyn Rodriguez PharmD Unavailable Reason for Visit * Reason Onset Date Comments Med Refill 04/16/2024 Encounter Details Date Type Department Care Team ([facility] st Contact Info) Description 04/16/2024 Refill [facility] [address] [place], [place] [phone] Name, MD Kiel [address] [place] [address] Chronic pain syndrome Social History Tobacco Use [...] as of this encounter Miscellaneous Notes * Addendum Note - Debbie Steiner RN - 04/16/2024 3:17 PM ESTAddended by: DEBBIE STEINER on: 04/16/2024 03:17 PM Modules accepted: Orders * Telephone Encounter - Leia Gonzales LPN - 04/16/2024 3:13 PM EST Received request on xyCODONE (Roxicodone) 10 MG immediate release tablet documented in this encounter Plan of Treatment Upcoming Encounters Date Type Department Care Team (Late st Contact Info) Description 05/07/2024 10:30 AM EDT Medication Management [facility] MEDICINE [address] [place] [phone] Katlyn Rodriguez, AngieD [address] [place] [address] 07/10/2024 9:00 AM EDT Clinical Support [facility] [address] [place] [phone] Debbie Steiner RN documented as of this encounter [...] documented as of this encounter Care Teams Twisthand Relationship Specialty Start Date End Date Name, MD Kiel [address] [place] [address] PCP - General Family Medicine 07/15/15 Katlyn Rodriguez, PharmD [address] [place] [address] Pharmacist Internal Medicine 10/08/22 Marta Ovalle Section Crews Activities ClerkProofsheet Corrector 05/25/23 documented as of this encounter
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
--- OUTSIDE RECORDS SUMMARY | 2024-04-18 18:36 | XMS_ITS | Encounter Summary ---
Author Organization [facility] Address [address] [place] [address] Care Team Providers Care Supervisor Filling And Packing Name Role Phone Name, Kiel BAILEY Primary Care Provider [phone] Encounter Details Date Type Department Care Team (Late st Contact Info) Description 11/24/2023 9:53 AM EDT Hospital Encounter TH HISTORIC ENCOUNTERS EASTERN CONVERSION ONLY Geoffrey-Art Vitale MD [address] [place] [address] Social History Tobacco Use Types [...] 2:17 PM Encounter Date: 11/24/2023 Status: Signed Printing Supplies Sales Representative: Art Davis MD (Physician) CHIEF COMPLAINT: Chief Complaint Patient presents with ? Follow-up Diffuse large B-cell lymphoma Stage III Completed 6 cycles of R-CHOP in July 23, 2018 IDENTIFIER:Sarita Puga is a 58 y.o. female. HPI: The patient returns for follow up of Large B-cell lymphoma. Here with her daughter , who is mozambican to serbian russian language instructor Patient reports that she [...] accompanied by her daughter and girlfriend. As Marshallese to Maltese russian language instructor assisted with the discussion. [...] as of this encounter Care Teams Supervisor Filling And Packing Relationship Specialty Start Date End Date Name, MD Kiel [address] [place], [place] PCP - General Internal Medicine 08/28/15 documented as of this encounter
--- OUTSIDE RECORDS SUMMARY | 2024-04-18 18:36 | XMS_ITS | Encounter Summary ---
Author Organization [employer] Address [address] 7[address] [place] [address] Care Team Providers Care Pre Press Operator Name Role Phone Name, Kiel BAILEY Primary Care Provider [phone] Katlyn Rodriguez PharmD Unavailable [phone] Reason for Visit * Reason Comments Med Refill Encounter Details Date Type Department Care Team ([facility] Contact Info) Description 03/21/2024 Refill [facility] [address] [place] [address] [phone] Name, MD Kiel [address] [place] [address] Urticaria Social History Tobacco Use Types Packs/Day [...] Description 05/07/2024 10:30 AM EDT Medication Management [address] [address] Puia, Katlyn, PharmD [address] [place] [address] 07/10/2024 9:00 AM EDT Clinical Support [address] [address] Opal Steiner RN documented as of this [...] documented as of this encounter Care Teams Pre Press Operator Relationship Specialty Start Date End Date Name, MD Kiel [address] [place] [address] PCP - General Family Medicine 07/15/15 Katlyn Rodriguez PharmD [address] [place] [address] Pharmacist Internal Medicine 10/08/22 Marta Ovalle Electrotyper HelperFood Checkers And Cashiers Supervisor 05/25/23 documented as of this encounter
--- OUTSIDE RECORDS SUMMARY | 2024-04-18 18:36 | XMS_ITS | Encounter Summary ---
Author Organization [facility] Address [address] [place] [address] Care Team Providers Care Offender Job Retention Specialist Name Role Phone Name, Kiel BAILEY Primary Care Provider [phone] Encounter Details Date Type Department Care Team (Late st Contact Info) Description 11/24/2023 10:30 AM EDT Hospital Encounter TH HISTORIC ENCOUNTERS EASTERN CONVERSION ONLY Geoffrey-Art Vitale MD [address] [place] [address] Social History Tobacco Use Types [...] documented as of this encounter Care Teams Offender Job Retention Specialist Relationship Specialty Start Date End Date Name, MD Kiel [address] [facility] [place] PCP - General Internal Medicine 08/28/15 documented as of this encounter
--- OUTSIDE RECORDS SUMMARY | 2024-04-18 18:36 | XMS_ITS | Clinical Summary ---
Author Organization [facility] Address [address] [place] [address] Phone Care Team Providers Care Environmental Protection Inspector Name Role Phone Name, Kiel BAILEY Primary Care Provider [phone] Allergies Active Allergy Reactions Criticality Noted Date [...] 10/08/2009 Overview (12/12/2023): The patient follows with [facility] and is treated with [...] EST - 02/06/2024 12:30 PM EST Emergency [facility] Unit [address] [place] [phone] Dada Ceja MD Bukalo, MD Renée [...] TOTAL HYSTERECTOMY WITH BSO; COMMENT: for bleeding, Line [facility] Medical History Medical History Date Comments [...] Name Status Comments Brother 1 Brother 2 DE Brother 3 Alive 6 brothers are diabetic [...] - 100 mg/dL 02/06/2024 11:09 AM EST [facility] Blood Capillary blood specimen / Unknown 02/06/2024 11:09 AM EST 02/06/2024 11:10 AM EST Adrian Chinchilla MD LAB POINT OF CARE TE ST DOCKED DEVICE UNSOLICITED RESULTS Final Result [facility] [address] [place] [address], * Troponin I high sensitivity (02/06/2024 4:38 AM EST) Only the most recent of2 resultswithin the time period is included. [facility] High Sensitivity Troponin I 4 <=54 ng/L LAB CHEMISTRY METHOD 02/06/2024 5:37 AM EST [facility] Blood Venous blood specimen / Unknown Venipuncture / Unknown 02/06/2024 4:38 AM EST 02/06/2024 5:04 AM EST Narrative [facility] - 02/06/2024 5:37 AM EST High levels of biotin in samples may falsely decrease hsTroponin values. ??Use caution when interpreting hsTroponin results in patients taking biotin who exhibit renal impairment (eGFR <60) or in patients taking more than 20 mg/day of biotin. us Cindy SEGURA LAB BLOOD ORDERABLES Final R esult Performing Organization Address City/[facility]/ZIP Co de Phone Number [facility] [address] [place] [address], [place] [phone] * Light blue tube (02/06/2024 2:59 AM EST) Pathologist [facility] Extra Tube Hold for add-ons. 02/06/2024 5:01 AM EST [facility] Comment:Auto resulted. Blood Venous blood specimen / Unknown 02/06/2024 2:59 AM EST 02/06/2024 3:14 AM EST us Delroy Jimenez MD LAB BLOOD ORDERABLES Final Res ult Performing Organization Address [facility]/ZIP Co de Phone Number [facility] [address] [place] [address], [place] [phone] * (ABNORMAL) Complete blood count (02/06/2024 2:59 AM EST) WBC 10.0 4.8 - 10.8 K/mcL LAB HEMETOLOGY METHOD 02/06/2024 3:26 AM EST [facility] RBC 4.40 3.80 - 4.80 M/mcL LAB HEMETOLOGY METHOD 02/06/2024 3:26 AM EST [facility] Hemoglobin 12.2 11.5 - 16.0 g/dL LAB HEMETOLOGY METHOD 02/06/2024 3:26 AM EST [facility] Hematocrit 38.9 35.0 - 47.0 % LAB HEMETOLOGY METHOD 02/06/2024 3:26 AM EST [facility] MCV 88.4 79.0 - 98.0 FL LAB HEMETOLOGY METHOD 02/06/2024 3:26 AM EST [facility] MCH 27.7 27.0 - 32.0 pcg LAB HEMETOLOGY METHOD 02/06/2024 3:26 AM EST [facility] MCHC 31.4(L) 32.0 - 37.0 g/dL LAB HEMETOLOGY METHOD 02/06/2024 3:26 AM EST [facility] RDW 13.2 11.0 - 15.0 % LAB HEMETOLOGY METHOD 02/06/2024 3:26 AM EST [facility] Platelets 175 130 - 400 K/mcL LAB HEMETOLOGY METHOD 02/06/2024 3:26 AM EST [facility] MPV 12.4(H) 7.0 - 11.0 FL LAB HEMETOLOGY METHOD 02/06/2024 3:26 AM EST [facility] NRBC 0.0 <1.0 % LAB HEMETOLOGY METHOD 02/06/2024 3:26 AM EST [facility] NRBC Absolute 0.00 <0.10 K/mcL LAB HEMETOLOGY METHOD 02/06/2024 3:26 AM EST [facility] Blood Venous blood specimen / Unknown Venipuncture / Unknown 02/06/2024 2:59 AM EST 02/06/2024 3:13 AM EST us Cindy SEGURA LAB BLOOD ORDERABLES Final R esult [facility] [address] [place] [address], * (ABNORMAL) Basic metabolic panel (02/06/2024 2:59 AM EST) Only the most recent of2 resultswithin the time period is included. Sodium 136 133 - 145 mmol/L LAB CHEMISTRY METHOD 02/06/2024 3:[address] [facility] Potassium 4.1 3.5 - 5.5 mmol/L LAB CHEMISTRY METHOD 02/06/2024 3:[address] [facility] Chloride 104 96 - 110 mmol/L LAB CHEMISTRY METHOD 02/06/2024 3:[address] [facility] CO2 23 21 - 32 mmol/L LAB CHEMISTRY METHOD 02/06/2024 3:[address] [facility] Anion Gap 9 3 - 11 LAB CHEMISTRY METHOD 02/06/2024 3:[address] [facility] Glucose 244(H) 70 - 100 mg/dL LAB CHEMISTRY METHOD 02/06/2024 3:[address] [facility] BUN 17 5 - 25 mg/dL LAB CHEMISTRY METHOD 02/06/2024 3:[address] [facility] Creatinine 0.71 0.50 - 1.10 mg/dL LAB CHEMISTRY METHOD 02/06/2024 3:[address] [facility] eGFR 99 >=60 mL/min/1. 73m2 LAB CHEMISTRY METHOD 02/06/2024 3:[address] [facility] Comment:Calculation based on the??Chronic Kidney Disease Epidemiology Collaboration (CKD-EPI) equation refit??without adjustment for race. BUN/Creatinine Ratio 23.9 LAB CHEMISTRY METHOD 02/06/2024 3:[address] [facility] Calcium 9.3 8.5 - 10.5 mg/dL LAB CHEMISTRY METHOD 02/06/2024 3:[address] [facility] Blood Venous blood specimen / Unknown Venipuncture / Unknown 02/06/2024 2:59 AM EST 02/06/2024 3:13 AM EST us Cindy SEGURA LAB BLOOD ORDERABLES Final R esult [facility] [address] [place] [address], [place] [phone] * XR Chest 2 Views (02/05/2024 7:17 [...] Signed Date: 02/05/2024 08:11 ET Workstation ID: [id number] Transcribed By: Self Edit Transcribed Date: 02/05/2024 [...] Signed Date: 02/05/2024 08:11 ET Workstation ID: [id number] Transcribed By: Self Edit Transcribed Date: 02/05/2024 08:11 ET us Kathy Nazario MD IMG XR PROCEDURES Final Result * ECG 12 lead (02/05/2024 7:01 AM EST) Ventricular Rate ECG 80 BPM GEMUSE Atrial Rate 80 BPM GEMUSE P-R Interval 130 ms GEMUSE QRS Duration 96 ms GEMUSE Q-T Interval 344 ms GEMUSE QTc 396 ms GEMUSE P Wave [place] 21 degrees GEMUSE R [place] -9 degrees GEMUSE T [place] 3 degrees GEMUSE ECG Interpretation Normal sinus [...] K/mcL LAB HEMETOLOGY METHOD 02/05/2024 7:[address] [facility] RBC 5.00(H) 3.80 - 4.80 M/[facility] LAB HEMETOLOGY METHOD 02/05/2024 7:[address] [facility] Hemoglobin 13.8 11.5 - 16.0 g/dL LAB HEMETOLOGY METHOD 02/05/2024 7:[address] [facility] Hematocrit 43.7 35.0 - 47.0 % LAB HEMETOLOGY METHOD 02/05/2024 7:[address] [facility] MCV 87.1 79.0 - 98.0 FL LAB HEMETOLOGY METHOD 02/05/2024 7:[address] [facility] MCH 27.5 27.0 - 32.0 pcg LAB HEMETOLOGY METHOD 02/05/2024 7:[address] [facility] MCHC 31.6(L) 32.0 - 37.0 g/dL LAB HEMETOLOGY METHOD 02/05/2024 7:[address] [facility] RDW 13.3 11.0 - 15.0 % LAB HEMETOLOGY METHOD 02/05/2024 7:[address] [facility] Platelets 200 130 - 400 K/mcL LAB HEMETOLOGY METHOD 02/05/2024 7:[address] [facility] MPV 12.4(H) 7.0 - 11.0 FL LAB HEMETOLOGY METHOD 02/05/2024 7:[address] [facility] NRBC 0.0 <1.0 % LAB HEMETOLOGY METHOD 02/05/2024 7:[address] [facility] NRBC Absolute 0.00 <0.10 K/mcL LAB HEMETOLOGY METHOD 02/05/2024 7:[address] [facility] Neutrophils Relative 64.1 % LAB HEMETOLOGY METHOD 02/05/2024 7:[address] [facility] Lymphocytes Relative 27.9 % LAB HEMETOLOGY METHOD 02/05/2024 7:[address] [facility] Monocytes Relative 6.5 % LAB HEMETOLOGY METHOD 02/05/2024 7:[address] [facility] Eosinophils Relative 0.7 % LAB HEMETOLOGY METHOD 02/05/2024 7:[address] [facility] Basophils Relative 0.6 % LAB HEMETOLOGY METHOD 02/05/2024 7:[address] [facility] Immature Granulocytes Relative 0.2 % LAB HEMETOLOGY METHOD 02/05/2024 7:[address] [facility] Neutrophils Absolute 5.82 1.50 - 7.00 K/mcL LAB HEMETOLOGY METHOD 02/05/2024 7:[address] [facility] Lymphocytes Absolute 2.53 1.00 - 5.00 K/mcL LAB HEMETOLOGY METHOD 02/05/2024 7:16 AM EST [facility] Monocytes Absolute 0.59 0.20 - 1.00 K/mcL LAB HEMETOLOGY METHOD 02/05/2024 7:16 AM EST [facility] Eosinophils Absolute 0.06 0.00 - 0.50 K/mcL LAB HEMETOLOGY METHOD 02/05/2024 7:16 AM EST [facility] Basophils Absolute 0.05 0.00 - 0.20 K/mcL LAB HEMETOLOGY METHOD 02/05/2024 7:[address] [facility] Immature Granulocytes Absolute 0.02 0.00 - 0.03 K/mcL LAB HEMETOLOGY METHOD 02/05/2024 7:[address] [facility] Blood Venous blood specimen / Unknown Venipuncture / Unknown 02/05/2024 6:55 AM EST 02/05/2024 7:05 AM EST Kathy Nazario MD LAB BLOOD ORDERABLES Fin al Result [facility] [address] [place] [address], * Respiratory virus panel molecular study (02/05/2024 6:51 AM EST) Adenovirus Detection by PCR Not Detected Not Detected LAB MICROBIOLOGY METHOD 02/05/2024 8:09 AM EST [facility] Influenza A PCR Not Detected Not Detected LAB MICROBIOLOGY METHOD 02/05/2024 8:[address] [facility] Influenza B PCR Not Detected Not Detected LAB MICROBIOLOGY METHOD 02/05/2024 8:09 AM EST [facility] Coronavirus 229E Not Detected Not Detected LAB MICROBIOLOGY METHOD 02/05/2024 8:[address] [facility] Coronavirus HKU1 Not Detected Not Detected LAB MICROBIOLOGY METHOD 02/05/2024 8:09 AM EST [facility] Coronavirus OC43 Not Detected Not Detected LAB MICROBIOLOGY METHOD 02/05/2024 8:[address] [facility] Coronavirus NL63 Not Detected Not Detected LAB MICROBIOLOGY METHOD 02/05/2024 8:[address] [facility] Parainfluenza Virus 1 Not Detected Not Detected LAB MICROBIOLOGY METHOD 02/05/2024 8:[address] [facility] Parainfluenza Virus 2 Not Detected Not Detected LAB MICROBIOLOGY METHOD 02/05/2024 8:[address] [facility] Parainfluenza Virus 3 Not Detected Not Detected LAB MICROBIOLOGY METHOD 02/05/2024 8:[address] [facility] Parainfluenza Virus 4 Not Detected Not Detected LAB MICROBIOLOGY METHOD 02/05/2024 8:[address] [facility] RSV PCR Not Detected Not Detected LAB MICROBIOLOGY METHOD 02/05/2024 8:[address] [facility] Human Metapneumovirus A and B Not Detected Not Detected LAB MICROBIOLOGY METHOD 02/05/2024 8:[address] [facility] Rhinovirus/Entero virus Not Detected Not Detected LAB MICROBIOLOGY METHOD 02/05/2024 8:[address] [facility] Bordetella pertussis Not Detected Not Detected LAB MICROBIOLOGY METHOD 02/05/2024 8:[address] [facility] Bordetella parapertussis Not Detected Not Detected LAB MICROBIOLOGY METHOD 02/05/2024 8:[address] [facility] Mycoplasma pneumo by PCR Not Detected Not Detected LAB MICROBIOLOGY METHOD 02/05/2024 8:[address] [facility] Chlamydia pneumoniae Not Detected Not Detected LAB MICROBIOLOGY METHOD 02/05/2024 8:[address] [facility] SARS COV-2 Not Detected Not Detected LAB MICROBIOLOGY METHOD 02/05/2024 8:[address] [facility] Swab Both anterior nares / Unknown Non-blood Collection / Unknown 02/05/2024 6:51 AM EST 02/05/2024 7:05 AM EST [facility] - 02/05/2024 8:09 AM EST Testing was performed using the [employer] Respiratory Pathogen PCR Assay. All results must [...] are below the limit of detection. Result [facility] Kathy Nazario MD LAB MICROBIOLOGY - GENER AL ORDERABLES Final Result [facility] ([facility] [address] [place] [address], * ECG-Annotated (02/05/2024) Result [facility] Provider Onbase ECG ORDERABLES Final Result * (ABNORMAL) Hemoglobin A1c (11/20/2014) Pathologist [facility] Hemoglobin A1C 7.5(A) 4.0 - 6.0 % Blood Venous blood specimen / Unknown Result [facility] Provider LAB BLOOD ORDERABLES Alis l Result * Urine Albumin Creatinine Ratio (05/10/2014) Pathologist [facility] Urine Albumin Creatinine Ratio abstracted Result [facility] Historical Provider HEALTH MAINTENANCE Final Result * (ABNORMAL) Lipid panel (05/10/2014) Pathologist [facility] LDL/HDL Ratio 4 0 - 4 Triglycerides 360(A) 0 - 150 mg/dL Cholesterol 179 0 - 200 mg/dL HDL 42 >=40 mg/dL LDL Cholesterol 65 0 - 100 mg/dL Blood Venous blood specimen / Unknown Result [facility] Historical Provider LAB BLOOD ORDERABLES Alis l [...] currently active code status orders. Care Teams Environmental Protection Inspector Relationship Specialty Start Date End Date Name, MD Kiel [address] [place], [place] PCP - General Internal Medicine 08/28/15
--- OUTSIDE RECORDS SUMMARY | 2024-04-18 18:36 | XMS_ITS | Encounter Summary ---
Author Organization [employer] Address [address] [facility] 7t [place] [address] Care Team Providers Care Ship Scaler Name Role Phone Name, Kiel BAILEY Primary Care Provider [phone] Katlyn Rodriguez PharmD Unavailable [phone] Encounter Details Date Type Department Care Team (Latest Contact Info) Description 04/10/2024 Travel Social History Tobacco Use Types Packs/Day [...] Description 05/07/2024 10:30 AM EDT Medication Management [address] [address] Puia, Katlyn, PharmD [address] [place] [address] 07/10/2024 9:00 AM EDT Clinical Support [address] [address] Opal Steiner, MARINA documented as of this encounter Goals Goal [...] documented as of this encounter Care Teams Ship Scaler Relationship Specialty Start Date End Date Name, MD Kiel [address] [place] [address] PCP - General Family Medicine 07/15/15 Puia, Katlyn, PharmD [address] [place] [address] Pharmacist Internal Medicine 10/08/22 Marta Ovalle [facility] HandChief Psychology 05/25/23 documented as of this encounter
--- OUTSIDE RECORDS SUMMARY | 2024-04-18 18:37 | XMS_ITS | Encounter Summary ---
Author Organization [facility] Address [address] [place] [address] 7t [place] [address] Care Team Providers Care Lamination Builder Name Role Phone Name, Kiel BAILEY Primary Care Provider [phone] Katlyn Rodriguez PharmD Unavailable [phone] Encounter Details Date Type Department Care Team ([facility] Contact Info) Description 10/29/2022 Abstract [facility] [address] [place] [phone] Name, MD Kiel [address] [place] [id number] Social History Tobacco Use Types Packs/Day Years [...] Upcoming Encounters Date Type Department Care Team ([facility] Contact Info) Description 05/07/2024 10:30 AM EDT Medication Management [facility] [address] [place] [phone] Katlyn Rodriguez, PharmD [address] [place], [place] [phone] 07/10/2024 9:00 AM EDT Clinical Support [facility] [address] [place] [address] Opal Steiner, RN documented as of this encounter Goals Goal Patient Goal Type Associated Problems Recent Progress Patient-Stated? Author Hemoglobin A1c < 7 Result Component 7.5( 10:50 AM EST) No AdeniaReidKatlyn, PharmD Record your blood sugar as directed Result Component No PuiaReidKatlyn, PharmD documented as of this encounter Procedures [...] documented as of this encounter Care Teams Lamination Builder Relationship Specialty Start Date End Date Name, [place] [address] PCP - General Family Medicine 07/15/15 Katlyn Rodriguez, PharmD [address] [place] [address] Pharmacist Internal Medicine 10/08/22 Marta Ovalle Bag AdjusterObstetrical Nurse 05/25/23 documented as of this encounter
--- OUTSIDE RECORDS SUMMARY | 2024-04-18 18:37 | XMS_ITS | Encounter Summary ---
Author Organization [employer] Address [address] [facility] [facility] [address] [place] [address] Care Team Providers Care Molding Machine Tender Name Role Phone Name, Kiel BAILEY Primary Care Provider [phone] Katlyn Rodriguez PharmD Unavailable [phone] Encounter Details Date Type Department Care Team ([facility] Contact Info) Description 03/26/2024 Telephone [facility] [address] [place], [place] [phone] Name, MD Kiel [address] [place] [address] Social History Tobacco Use Types Packs/Day Years [...] Description 05/07/2024 10:30 AM EDT Medication Management [address] [address] Katlyn Rodriguez PharmD [address] [place] [phone] 07/10/2024 9:00 AM EDT Clinical Support [facility] [address] [place] [phone] Opal Steiner RN documented as of this encounter Goals Goal Patient Goal Type Associated Problems Recent Progress Patient-Stated? Author Record your blood pressure once per day Blood Pressure No Puia, Katlyn, PharmD Blood Pressure < 140/90 Blood Pressure 120/70(2024 11:11 AM EST) No PuiaReidKatlyn, PharmD Hemoglobin A1c < 7 Result Component 7.5(02/04/202 5 10:50 AM EST) No Katlyn Rodriguez, PharmD Record your blood sugar as directed Result Component No Katlyn Rodriguez, PharmD documented as of this encounter Visit Diagnoses Not on filedocumented in this encounter Additional Health Concerns Assessment Noted Time PHQ-9 Depression Total Score: 4 09/02/19 24 10:30 AM EDT documented as of this encounter Care Teams Molding Machine Tender Relationship Specialty Start Date End Date Name, MD Kiel [address] [place] [address] PCP - General Family Medicine 07/15/15 Katlyn Rodriguez, PharmD [address] [place] [address] Pharmacist Internal Medicine 10/08/22 Marta Ovalle Environmental AideRn Plastic Surgery 05/25/23 documented as of this encounter
--- OUTSIDE RECORDS SUMMARY | 2024-04-18 18:37 | XMS_ITS | Encounter Summary ---
Author Organization [employer] Address [address] [facility] [address] 7[address] [place] [address] Care Team Providers Care Ecclesiastical Worker Name Role Phone Name, Kiel BAILEY Primary Care Provider [phone] Katlyn Rodriguez PharmD Unavailable [phone] Encounter Details Date Type Department Care Team ([facility] st Contact Info) Description 02/20/2024 Telephone [facility]S [address] [place], [place] [phone] Name, MD Kiel [address] [place] [address] Social History Tobacco Use Types Packs/Day Years [...] Description 05/07/2024 10:30 AM EDT Medication Management [address] [address] Puia, Katlyn, PharmD [address] [place] [phone] 07/10/2024 9:00 AM EDT Clinical Support [address] [address] Opal Steiner, MARINA documented as of this [...] documented as of this encounter Care Teams Ecclesiastical Worker Relationship Specialty Start Date End Date Name, MD Kiel [address] [place], [place] [phone] PCP - General Family Medicine 07/15/15 Katlyn Rodriguez PharmD [address] [place] [address] Pharmacist Internal Medicine 10/08/22 Marta Ovalle Tap BuilderLoom Changer 05/25/23 documented as of this encounter
--- OUTSIDE RECORDS SUMMARY | 2024-04-18 18:37 | XMS_ITS | Encounter Summary ---
Author Organization [employer] Address [address] [facility] 7[address] [place] [address] Care Team Providers Care Movement Assembly Final Inspector Name Role Phone Name, Kiel BAILEY Primary Care Provider [phone] Katlyn Rodriguez PharmD Unavailable [phone] Encounter Details Date Type Department Care Team ([facility] Contact Info) Description 03/12/2022 Orders Only [facility] MED & PEDS [address] [place], [place] [phone] Millie Sawant LPN Social History Tobacco Use [...] Upcoming Encounters Date Type Department Care Team ([facility] Contact Info) Description 05/07/2024 10:30 AM EDT Medication Management [facility] MEDICINE [address] [place], [place] [phone] Katlyn Rodriguez, PharmD [address] [place], [place] [phone] 07/10/2024 9:00 AM EDT Clinical Support [facility] MEDICINE [address] [place] [address] Opal Steiner RN documented as of this encounter Visit Diagnoses Not on filedocumented in this encounter Care Teams Movement Assembly Final Inspector Relationship Specialty Start Date End Date Name, MD Kiel [address] [place] [address] PCP - General Family Medicine 07/15/15 Katlyn Rodriguez PharmD [address] [place] [address] Pharmacist Internal Medicine 10/08/22 Marta Ovalle Technical InternCatering Chef 05/25/23 documented as of this encounter
--- OUTSIDE RECORDS SUMMARY | 2024-04-18 18:37 | XMS_ITS | Clinical Summary ---
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 Contrast (04/06/2024 7:02 PM EST) Anatomical Region Laterality Modality Spine, C-spine Computed Tomogra phy 04/06/2024 7:02 PM EST Narrative 04/06/2024 7:04 PM EST ? [facility] ?[address] ?[place] [address] ? CT Scan Report ? Signed ? Patient: Puga,Shilpi ?MR#: [id number] ?? 92 ? : 1965 ?Acct:[id number] ? Age/Sex: 58 / F ?ADM Date: 04/06/24 ? Loc: HO.ED ? Attending Dr: ? Ordering Physician: Page Garcia DO ?? Date of Service: 04/06/24 ?? Procedure(s): CT cervical spine wo IV con ?? Accession Number(s): [id number] ? cc: Page Garcia DO; Name,Kiel BAILEY ? Report Number: ?? [id number]: Total DLP = ?0.00 mGy-cm ? CLINICAL HISTORY: neck trauma ? CT cervical spine without contrast ? Comparison: None ? Findings: ?? There is mild motion artifact present. Within the limitations of motion ?? artifact, there is no fracture deformity. ?? Vertebral alignment is within normal limits. ?? There are scattered lucent bone lesions within the cervical spine, which ?? were present in 2021. These may be areas of coarse osteopenia or small ?? hemangiomata. ?? Mild degenerative change. ?? No acute findings on limited view of the intracranial contents. ?? Soft tissues of the neck are normal. ?? No apical pneumothorax. ? IMPRESSION: ?? No acute findings. ? This document has been electronically signed by: Andrew Ashley MD on ?? 04/06/2024 19:02:08 ? Dictated By: ?Andrew Ashley MD ? Signed By: ?<Electronically signed by Andrew Ashley MD in OV> ? 04/06/241902 ? DD/ 01 ? TD/TT: 04/06/241901 ? Medical Information Specialist: ? Procedure Note Jung Bañuelos - 04/06/[address] [address] [address] Scan Report Signed Patient: Sarita Puga MMR#: [id number] 92 : 1965Acct:[id number] Age/Sex: 58 / FADM Date: 04/06/24 Loc: HO.ED Attending Dr: Ordering Physician: Page Garcia DO Date of Service: 04/06/24 Procedure(s): CT cervical spine wo IV con Accession Number(s): [id number] cc: Page Garcia DO; Name,Kiel BAILEY Report Number: [id number]: Total DLP = 0.00 mGy-cm CLINICAL HISTORY: neck trauma CT cervical spine without contrast Comparison: None Findings: There is mild motion artifact present. Within the limitations of motion artifact, there is no fracture deformity. Vertebral alignment is within normal limits. There are scattered lucent bone lesions within the cervical spine, which were present in 2021. These may be areas of coarse osteopenia or small hemangiomata. Mild degenerative change. No acute findings on limited view of the intracranial contents. Soft tissues of the neck are normal. No apical pneumothorax. IMPRESSION: No acute findings. This document has been electronically signed by: Andrew Ashley MD on 04/06/2024 19:02:08 Dictated By: Andrew Ashley MD Signed By: <Electronically signed by Andrew Ashley MD in OV> 04/06/241902 DD/ 01 TD/TT: 04/06/241901 Medical Information Specialist: [facility] External Provider IMG CT PROCEDURES Edited Result - Final * XR Humerus Left (04/06/2024 2:32 PM EST) Anatomical Region Laterality Modality Upper Extremities, Humerus Left Radio graphic Imaging 04/06/2024 2:32 PM EST Narrative 04/06/2024 3:02 PM EST ? [facility] ?[address] ?[place] [address] ?XRay Report ? Signed ? Patient: Sarita Puga ?MR#: [id number] ?? 92 ? : 1965 ?Acct:[id number] ? Age/Sex: 58 / F ?ADM Date: 04/06/25 ? Loc: HO.ED ? Attending Dr: ? Ordering Physician: Page Garcia DO ?? Date of Service: 04/06/24 ?? Procedure(s): XR humerus LT ?? Accession Number(s): [id number] ? cc: Page Garcia DO; Name,Kiel BAILEY ? EXAMINATION: ??XR HUMERUS LEFT ? HISTORY: trauma ? COMPARISON: Correlation is made to plain films of the left shoulder ?? dated 05/12/2023 and a study of the left elbow dated 02/22/2023. ? FINDINGS: ? AP and lateral views of the left humerus are submitted. ??Osseous ?? mineralization is normal. ??There is no fracture or dislocation. ??The ?? visualized shoulder and elbow joint spaces are preserved. ??The soft ?? tissues are unremarkable. ? XR/XR humerus LT ?? IMPRESSION: ? No remarkable examination of the left humerus. ? Electronically signed by: ??Kenyn Fernandes MD ??04/06/2024 02:59 PM EST ? Dictated By: ?Kenny Fernandes MD ? Signed By: ?<Electronically signed by Kenny Fernandes MD in OV> ?04/06/24 1459 ? DD/ 1432 ? TD/TT: 04/06/24 1446 ? Medical Information Specialist: ? Procedure Note Donhankter, Image - 04/06/2024 [place] [address] XRay Report Signed Patient: Sarita Puga MMR#: [id number] 92 : 1965Acct:[id number] Age/Sex: 58 / FADM Date: 04/06/24 Loc: HO.ED Attending Dr: Ordering Physician: Page Garcia DO Date of Service: 04/06/24 Procedure(s): XR humerus LT Accession Number(s): [id number] cc: Page Garcia DO; Name,Kiel BAILEY EXAMINATION: XR HUMERUS LEFT HISTORY: trauma COMPARISON: Correlation is made to plain films of the left shoulder dated 05/12/2023 and a study of the left elbow dated 02/22/2023. FINDINGS: AP and lateral views of the left humerus are submitted. Osseous mineralization is normal. There is no fracture or dislocation. The visualized shoulder and elbow joint spaces are preserved. The soft tissues are unremarkable. XR/XR humerus LT IMPRESSION: No remarkable examination of the left humerus. Electronically signed by: Kenny Fernandes MD 04/06/2024 02:59 PM EST Dictated By: Kenny Fernandes MD Signed By: <Electronically signed by Kenny Fernandes MD in OV> 04/06/24 1459 DD/ 1432 TD/TT: 04/06/24 1446 Medical Information Specialist: [facility] External Provider IMG XR PROCEDURES Edited Result - Final * (ABNORMAL) POCT HGB A1C (03/27/2024 10:50 AM EST) Only the most recent of2 resultswithin the time period is included. Hemoglobin A1C 7.5(A) 4.0 - 6.0 % QC Media Lot # [id number] Lot# Expiration Date [id number] Blood 03/27/2024 10:5 0 AM EST Kiel [...] / Unknown 03/27/2024 10:48 AM EST Kiel Deena BAILEY POINT OF CARE TEST ENTER/EDIT OR DERABLES Final Result * CT RENAL FOR STONES (02/21/2024 3:09 PM EST) Anatomical Region Laterality Modality Computed Tomogra phy 02/21/2024 3:09 PM EST Narrative 02/21/2024 3:10 PM EST ? [facility] ?[address] ?[place] [address] ? CT Scan Report ? Signed ? Patient: Puga,Shilpi ?MR#: [id number] ?? 92 ? : 1965 ?Acct:[id number] ? Age/Sex: 58 / F ?ADM Date: 12/31/24 ? Loc: HO.CT ? Attending Dr: Cherelle ROMO ? Ordering Physician: Cherelle Trujillo ?? Date of Service: 02/21/24 ?? Procedure(s): CT kidney stone ?? Accession Number(s): [id number] ? cc: Cherelle Trujillo; Name,Kiel BAILEY ? Report Number: ?? [id number]: Total DLP = ??650.00 mGy-cm ? CLINICAL [...] DD/ 1509 ? TD/TT: 02/21/24 1509 ? Medical Information Specialist: ? Procedure Note Sarmad, Image - 02/21/[address] [address] [address] Scan Report Signed Patient: Sarita Puga MMR#: [id number] 92 : 1965Acct:[id number] Age/Sex: 58 / FADM Date: 02/21/24 Loc: HO.CT Attending Dr: Cherelle Trujillo [facility] Ordering Physician: Cherelle Trujillo [facility] Date of Service: 02/21/24 Procedure(s): CT kidney stone Accession Number(s): [id number] cc: Cherelle Trujillo [facility]; Name,Kiel BAILEY Report Number: [id number]: Total DLP = 650.00 mGy-cm CLINICAL HISTORY: [...] 02/21/24 1510 DD/ 1509 TD/TT: 02/21/24 1509 Medical Information Specialist: [facility] External Provider IMG CT PROCEDURES Final [...] EST Narrative 02/01/2024 11:04 AM EST ? [facility] ?[address] ?[place] [address] ? Magnetic Resonance Report ? Signed ? Patient: Puga,Shilpi ?MR#: [id number] ?? 92 ? : 1965 ?Acct:[id number] ? Age/Sex: 58 / F ?ADM Date: 02/01/24 ? Loc: HO.MRI ? Attending Dr: Millie Siddiqui DO ? Ordering Physician: Millie Siddiqui DO ?? Date of Service: 02/01/24 ?? Procedure(s): MR lumbar spine wo con ?? Accession Number(s): [id number] ? cc: Millie Siddiqui DO; Name,Kiel BAILEY [...] DD/ 1029 ? TD/TT: 02/01/24 1045 ? Medical Information Specialist: ? Procedure Note Jung Bañuelos - 02/01/2024 [place] [address] Magnetic Resonance Report Signed Patient: Sarita Puga MMR#: [id number] 92 : 1965Acct:[id number] Age/Sex: 58 / FADM Date: 02/01/24 Loc: HO.MRI Attending Dr: Millie Siddiqui DO Ordering Physician: Millie Siddiqui DO Date of Service: 02/01/24 Procedure(s): MR lumbar spine wo con Accession Number(s): [id number] cc: Millie Siddiqui DO; Name,Kiel BAILEY EXAMINATION: [...] Felix Fall MD 02/01/2024 11:01 AM EST Dictated By: Felix Mckinnon MD Signed By: <Electronically signed by Felix Tilley MDin OV> 02/01/24 1101 DD/ 1029 TD/TT: 02/01/24 1045 Medical Information Specialist: us Millie Siddiqui DO IMG MRI PROCEDURES Edited Re sult - Final * XR Lumbar Spine 2-3 Views (01/24/2024 9:59 AM EST) Anatomical Region Laterality Modality Spine, L-spine Radiographic Diana ging 01/24/2024 9:59 AM EST Narrative 01/24/2024 1:08 PM EST ?[facility] ?[address] ?[place] [address] ?XRay Report ? Signed ? Patient: Puga,Shilpi ?MR#: [id number] ?? 92 ? : 1965 ?Acct:[id number] ? Age/Sex: 58 / F ?ADM Date: 01/24/24 ? Loc: HO.HHCX ? Attending Dr: Millie Siddiqui DO ? Ordering Physician: Millie Siddiqui DO ?? Date of Service: 01/24/24 ?? Procedure(s): XR lumbar spine 2-3V ?? Accession Number(s): [id number] ? cc: Millie Siddiqui DO ? EXAMINATION: [...] ??Marisol Rodgers MD ??01/24/2024 01:05 PM EST ?? RP ? Dictated By: ?Marisol Rodgers MD ? Signed By: ?<Electronically signed by Marisol Rodgers MD in OV> ? 01/24/24 1305 ? DD/ 0959 ? TD/TT: 01/24/24 1004 ? Medical Information Specialist: ? Procedure Note Donotuseinterpreter, Image - 01/24/[address] [address] XRay Report Signed Patient: Sariat Puga MMR#: [id number] 92 : 1965Acct:[id number] Age/Sex: 58 / FADM Date: 01/24/24 Loc: HO.CX Attending Dr: Millie Siddiqui DO Ordering Physician: Millie Siddiqui DO Date of Service: 01/24/24 Procedure(s): XR lumbar spine 2-3V Accession Number(s): [id number] cc: Millie Siddiqui DO EXAMINATION: XR LUMBOSACRAL [...] by: Marisol Rodgers MD 01/24/2024 01:05 PM [facility] Dictated By: Marisol Rodgers MD Signed By: <Electronically signed by Marisol Rodgers MD in OV> 01/24/24 1305 DD/ 0959 TD/TT: 01/24/24 1004 Medical Information Specialist: Millie Siddiqui DO IMG XR PROCEDURES Final Resu lt * XR Hip 2 or 3 Views Left (01/23/2024 10:00 AM EST) Anatomical Region Laterality Modality Lower Extremities, Hip Left Radiograp hic Imaging 01/23/2024 10:0 0 AM EST Narrative 01/23/2024 3:13 PM EST ?[facility] ?[address] ?[place] [address] ?XRay Report ? Signed ? Patient: Puga,Shilpi ?MR#: [id number] ?? 92 ? : 1965 ?Acct:[id number] ? Age/Sex: 58 / F ?ADM Date: 01/23/24 ? Loc: HO.HHCX ? Attending Dr: Yvonne Walls MD ? Ordering Physician: Yvonne Walls MD ?? Date of Service: 01/23/24 ?? Procedure(s): XR hip LT min 2V ?? Accession Number(s): [id number] ? cc: Yvonne Walls MD ? EXAMINATION: [...] Santos MD ??01/23/2024 03:10 PM ?? EST ? Dictated By: ?Tyron Santos MD ? Signed By: ?<Electronically signed by Tyron Santos MD in OV> ?01/23/24 1510 ? DD/ 1000 ? TD/TT: 01/23/24 1030 ? Medical Information Specialist: WG ? Procedure Note Jung Bañuelos - 01/23/2024 [facility] [address] [place] [address] XRay Report Signed Patient: Sarita Puga MMR#: [id number] 92 : 1965Acct:[id number] Age/Sex: 58 / FADM Date: 01/23/24 Loc: HO.HHCX Attending Dr: Yvonne Walls MD Ordering Physician: Yvonne Walls MD Date of Service: 01/23/24 Procedure(s): XR hip LT min 2V Accession Number(s): [id number] cc: Yvonne Walls MD EXAMINATION: XR HIP, [...] 01/23/24 1510 DD/ 1000 TD/TT: 01/23/24 1030 Medical Information Specialist: LEANNE Yvonne Walls MD IMG XR PROCEDURES Final Result * XR Elbow 3+ Views Left (01/23/2024 10:00 AM EST) Anatomical Region Laterality Modality Upper Extremities, Elbow Left Radiogr aphic Imaging 01/23/2024 10:0 0 AM EST Narrative 01/23/2024 3:12 PM EST ?[facility] ?[address] ?[place] [address] ?XRay Report ? Signed ? Patient: Puga,Shilpi ?MR#: [id number] ?? 92 ? : 1965 ?Acct:[id number] ? Age/Sex: 58 / F ?ADM Date: 12/02/24 ? Loc: HO.HHCX ? Attending Dr: Yvonne Walls MD ? Ordering Physician: Yvonne Walls MD ?? Date of Service: 01/23/24 ?? Procedure(s): XR elbow LT min 3V ?? Accession Number(s): [id number] ? cc: Yvonne Walls MD ? EXAMINATION: [...] DD/ 1000 ? TD/TT: 01/23/24 1030 ? Medical Information Specialist: LEANNE ? Procedure Note Jung Bañuelos - 01/23/[address] [address] XRay Report Signed Patient: Sarita Puga MMR#: [id number] 92 : 1965Acct:[id number] Age/Sex: 58 / FADM Date: 01/23/24 Loc: HO.HHCX Attending Dr: Yvonne Walls MD Ordering Physician: Yvonne Walls MD Date of Service: 01/23/24 Procedure(s): XR elbow LT min 3V Accession Number(s): [id number] cc: Yvonne Walls MD EXAMINATION: XR ELBOW, [...] by: Tyron Santos MD 01/23/2024 03:10 PM [facility] Dictated By: Tyron Santos MD Signed By: <Electronically signed by Tyron Santos MD inOV> 01/23/24 1510 DD/ 1000 TD/TT: 01/23/24 1030 Medical Information Specialist: LEANNE Yvonne Walls MD IMG XR PROCEDURES [...] None Detected Urine 01/23/2024 9:13 AM EST Yvonne Walls MD POINT OF CARE TEST ENTER /EDIT ORDERABLES Final Result * (ABNORMAL) Lipid Panel, Standard (10/25/2023 8:11 AM EDT) Triglycerides 266(H) <150 mg/dL [facility] Comment:Desirable Triglyceri de: less than 150 mg/dLBorderline High Triglyceride 150-199 mg/dLHigh Triglyceride: 200-499 mg/dLVery High Triglyceride: greater than or equal to 5OO mg/dL Cholesterol 206(H) <200 mg/dL [facility] Comment:Desirable Cholestero l: less than 200 mg/dLBorderline High Cholesterol: 200-239 mg/dLHigh Cholesterol: greater than 239 mg/dL LDL Cholesterol Calculated 104(H) <100 mg/dL [facility] Comment:Desirable LDL: less than 100 mg/dLNear Optimal/Above Optimal LDL: 110- 129 mg/dLBorderline High LDL: 130-159 mg/dLHigh LDL: 160-189 mg/dLVery High LDL: greater than or equal to 190 mg/dL HDL Cholesterol 49 >40 mg/dL [facility] Comment:Desirable HDL: great er than 40 mg/dL Note: This HDL assay may give artificially low results in patients with liver disease. 10/25/2023 8:11 AM EDT 10/25/2023 11:22 AM EDT us Kiel Deena BAILEY LAB BLOOD ORDERABLES Final Resul t [facility] [address] [place] [address] [phone] * BI Mammogram Screening Tomosynthesis Bilateral (06/03/2023 8:45 AM EDT) Anatomical Region Laterality Modality Breast Bilateral Mammography 06/03/2023 8:45 AM EDT Narrative 06/30/2023 10:24 PM EDT ? [facility] ? [address] ?[place] [address] ? Mammography Report ? Signed ? Patient: PugaSarita ?MR#: [id number] ?? 92 ? : 1965 ?Acct:[id number] ? Age/Sex: 57 / F ?ADM Date: //24 ? Loc: HO.MAMMO ? Attending Dr: Kiel Name MD ? Ordering Physician: Name,Kiel MD ?Results: 1Negative ? Date of Service: 06/02/24 ?Follow Up: 1 Year From Orig ?? inal Mammogram ? Procedure(s): MM tomosynthesis screening BI ?? Accession Number(s): [id number] ? cc: Name,Kiel BAILEY ? EXAMINATION: ?? [...] 2220 ? DD/ 0845 ? TD/TT: ? Medical Information Specialist: ? Procedure Note Abdifatahter, Image - 06/30/2023 [facility] [address] [place] [address] [place] [address] Mammography Report Signed Patient: Sarita Puga MMR#: [id number] 92 : 1965Acct:[id number] Age/Sex: 57 / FADM Date: 06/03/23 Loc: MARGAUX Attending DrTim Shaffer MD Ordering Physician: Kiel Shafferesults: 1Negative Date of Service: 06/03/23Follow Up: 1 Year From Orig ina Mammogram Procedure(s): MM tomosynthesis screening BI Accession Number(s): [id number] cc: Kiel Shaffer MD EXAMINATION: MM SCREENING [...] signed by Nancy Healy MD in OV> 06/30/23 2220 DD/ 0845 TD/TT: Medical Information Specialist: us Kiel Shaffer MD IM BI PROCEDURES Edited Result - Final * Albumin, Random Urine W/Creatinine (05/26/2023 8:27 AM EDT) Creatinine, Urine 185.88 mg/dL [facility] Microalbumin Urine 23.0 mg/L [facility] Microalbum Creatinine Ratio Ur 12.3 <30 ug/mg cr [facility] Comment:Albumin/Creatinine R atio Reference Ranges: Normal: < 30 ug/mg creatinine Microalbuminuria: 30 - 300 ug/mg creatinineClinical Albuminuria: > 300 ug/mg creatinine Urine (Urine, Random) 05/26/2023 8:27 AM EDT 05/26/2023 11:19 AM EDT us Kiel Shaffer MD LAB URINE ORDERABLES Final Resul t [facility] [address] [place] [address] [phone] * Colonoscopy (07/01/2022 4:37 PM EDT) Colonoscopy Normal Normal Narrative [place] - 07/01/2022 4:37 PM EDT Recommended 5 year follow up ([place]) [facility] Provider HEALTH MAINTENANCE Final Result * Diabetes Eye Exam (05/26/2022) Eye Exam Normal Normal us Kiel Shaffer MD HEALTH MAINTENANCE Final Result from Last 3 Months or Most Recently Relevant to Health Maintenance Insurance [employer] [facility] [address] [place] [address] [address] [place] [address] Care Teams Jewelry Finisher Relationship Specialty Start Date End Date Name, MD Kiel [address] [place], [place] [phone] PCP - General Family Medicine 07/15/15 Katlyn Rodriguez, AngieD [address] [place] [address] Pharmacist Internal Medicine 10/08/22 Marta Ovalle Commercial LenderExecutive Coordinator 05/25/23
--- OUTSIDE RECORDS SUMMARY | 2024-04-18 18:37 | XMS_ITS | Encounter Summary ---
Author Organization [employer] Address [address] [facility] [address] [place] [address] Care Team Providers Care Crocheter Name Role Phone Name, Kiel BAILEY Primary Care Provider [phone] Katlyn Rodriguez PharmD Unavailable [phone] Reason for Visit * Reason Comments Med Refill Encounter Details Date Type Department Care Team ([facility] st Contact Info) Description 09/07/2023 Refill [facility] [address] [place], [place] [phone] Name, MD Kiel [address] [place] [address] Type 2 diabetes mellitus with other specified [...] Description 05/07/2024 10:30 AM EDT Medication Management [address] [address] Puia, Katlyn, PharmD [address] [place] [phone] 07/10/2024 9:00 AM EDT Clinical Support [address] [address] Opal Steiner RN documented as of this [...] documented as of this encounter Care Teams Crocheter Relationship Specialty Start Date End Date Name, MD Kiel [address] [place] [address] PCP - General Family Medicine 07/15/15 Katlyn Rodriguez PharmD [address] [place] [address] Pharmacist Internal Medicine 10/08/22 Marta Ovalle Electrician MaintenanceTrench Shovel Operator 05/25/23 documented as of this encounter
--- OUTSIDE RECORDS SUMMARY | 2024-04-18 18:37 | XMS_ITS | Encounter Summary ---
Author Organization [employer] Address [address] [facility] 7t [place] [address] Care Team Providers Care Furnace Unloader Name Role Phone Name, Kiel BAILEY Primary Care Provider [phone] Katlyn Rodriguez PharmD Unavailable Encounter Details Date Type Department Care Team ([facility] Contact Info) Description 04/06/2024 Orders Only [facility] External Provider, [facility] Social History Tobacco Use Types Packs/Day [...] Description 05/07/2024 10:30 AM EDT Medication Management [address] [address] Puia, Katlyn, PharmD [address] [place] [address] 07/10/2024 9:00 AM EDT Clinical Support [address] [address] Opal Steiner RN documented as of this [...] VENOUS LEFT Routine 04/18/2024 3:[address] HEAD WO CONTRAST Routine 04/06/2024 7 :[address] CHEST W CONTRAST Routine 04/06/2024 7 :[address] ABDOMEN PELVIS W CONTRAST Routine 04/06/2024 7:[address] CERVICAL SPINE WO CONTRAST Routine 04/06/2024 7:02 PM EST XR HUMERUS LEFT Routine 04/06/2024 2:32 PM EST documented in this encounter Results * US DOPPLER EXT UPPER VENOUS LEFT (04/18/2024 3:59 PM EST) Anatomical Region Laterality Modality Body Ultrasound 04/18/2024 3:59 PM EST Narrative 04/18/2024 4:00 PM EST ? [facility] ?[address] ?[place] [address] ? Ultrasound Report ? Signed ? Patient: Sarita Puga ?MR#: [id number] ?? 92 ? : 1965 ?Acct:[id number] ? Age/Sex: 58 / F ?ADM Date: 04/18/24 ? Loc: HO.US ? Attending Dr: Victorino Alexandre MD ? Ordering Physician: VICTORINO ALEXANDRE MD ?? Date of Service: 04/18/24 ?? Procedure(s): US venous duplex UE LT ?? Accession Number(s): [id number] ? cc: VICTORINO ALEXANDRE MD; Kiel Shaffer MD ? CLINICAL HISTORY: LT ARM PAIN, SWELLING [...] DD/ 1559 ? TD/TT: 04/18/24 1559 ? Photo Graphics Librarian: ? Procedure Note Sarmad, Image - 04/18/2024 [facility] [address] [place] [address] Ultrasound Report Signed Patient: Sarita Puga MMR#: [id number] 92 : 1965Acct:[id number] Age/Sex: 58 / FADM Date: 04/18/24 Loc: HO.US Attending Dr: Victorino Alexandre MD Ordering Physician: VICTORINO ALEXANDRE MD Date of Service: 04/18/24 Procedure(s): US venous duplex UE LT Accession Number(s): [id number] cc: VICTORINO ALEXANDRE MD; Name,Kiel BAILEY CLINICAL [...] 04/18/24 1600 DD/ 1559 TD/TT: 04/18/24 1559 Photo Graphics Librarian: us Victorino Alexandre MD IMG US PROCEDURES Final Result * CT Head w/o Contrast (04/06/2024 7:14 PM EST) Anatomical Region Laterality Modality Head, Neck Computed Tomogra phy 04/06/2024 7:14 PM EST Narrative 04/06/2024 7:16 PM EST ? [facility] ?[address] ?[place] [address] ? CT Scan Report ? Signed ? Patient: Puga,Shilpi ?MR#: [id number] ?? 92 ? : 1965 ?Acct:[id number] ? Age/Sex: 58 / F ?ADM Date: 02/14/25 ? Loc: HO.ED ? Attending Dr: ? Ordering Physician: Page Garcia DO ?? Date of Service: 04/06/24 ?? Procedure(s): CT head/brain wo IV con ?? Accession Number(s): [id number] ? cc: Page Garcia DO; Name,Kiel BAILEY ? Report Number: ?? [id number]: Total DLP = 1319.00 mGy-cm ? CLINICAL [...] by Andrew Ashley MD in OV> ? 04/06/24 1916 ? DD/ 13 ? TD/TT: 04/06/241913 ? Photo Graphics Librarian: ? Procedure Note Sarmad, Image - 04/06/[address] [place] [address] [address] Scan Report Signed Patient: Sarita Puga MMR#: [id number] 92 : 1965Acct:[id number] Age/Sex: 58 / FADM Date: 04/06/24 Loc: HO.ED Attending Dr: Ordering Physician: Page Garcia DO Date of Service: 04/06/24 Procedure(s): CT head/brain wo IV con Accession Number(s): [id number] cc: Page Garcia DO; Name,Kiel BAILEY Report Number: [id number]: Total DLP = 1319.00 mGy-cm CLINICAL HISTORY: [...] in OV> 04/06/241915 DD/ 13 TD/TT: 04/06/241913 Photo Graphics Librarian: [facility] External Provider IMG CT PROCEDURES Edited Result - Final * CT Chest w/ Contrast (04/06/2024 7:12 PM EST) Anatomical Region Laterality Modality Body, Chest Computed Tomogra phy 04/06/2024 7:12 PM EST Narrative 04/06/2024 7:13 PM EST ? [facility] ?[address] ?[place] [address] ? CT Scan Report ? Signed ? Patient: Sarita Puga ?MR#: [id number] ?? 92 ? : 1965 ?Acct:[id number] ? Age/Sex: 58 / F ?ADM Date: 04/06/24 ? Loc: HO.ED ? Attending Dr: ? Ordering Physician: Page Garcia DO ?? Date of Service: 04/06/24 ?? Procedure(s): CT chest w IV con ?? Accession Number(s): [id number] ? cc: Page Garcia DO; NameKiel MD ? Report Number: ?? [id number]: Total DLP = ?0.00 mGy-cm ? CLINICAL HISTORY: chest wall pain after trauma ? CT chest with contrast ? Comparison: CT/MI/SR - CT CHEST W IV CON - [...] ? DD/ 11 ? TD/TT: 04/06/241911 ? Photo Graphics Librarian: ? Procedure Note Donotuseinterpreter, Image - 04/06/[address] [place] [address] [address] Scan Report Signed Patient: Sarita Puga MMR#: [id number] 92 : 1965Acct:[id number] Age/Sex: 58 / FADM Date: 04/06/24 Loc: HO.ED Attending Dr: Ordering Physician: Page Garcia DO Date of Service: 04/06/24 Procedure(s): CT chest w IV con Accession Number(s): [id number] cc: Page Garcia DO; Name,Kiel BAILEY Report Number: [id number]: Total DLP = 0.00 mGy-cm CLINICAL HISTORY: chest wall pain after trauma CT chest with contrast Comparison: CT/MI/SR - CT CHEST W IV CON - [...] in OV> 04/06/241911 DD/ 11 TD/TT: 04/06/241911 Photo Graphics Librarian: [facility] External Provider IMG CT PROCEDURES Edited Result - Final * CT Abdomen Pelvis w/ Contrast (04/06/2024 7:11 PM EST) Anatomical Region Laterality Modality Body, Pelvis, Abdomen Computed T omography 04/06/2024 7:11 PM EST Narrative 04/06/2024 7:13 PM EST ? [facility] ?[address] ?[place] [address] ? CT Scan Report ? Signed ? Patient: Puga,Shilpi ?MR#: [id number] ?? 92 ? : 1965 ?Acct:[id number] ? Age/Sex: 58 / F ?ADM Date: 04/06/24 ? Loc: HO.ED ? Attending Dr: ? Ordering Physician: Page Garcia DO ?? Date of Service: 04/06/24 ?? Procedure(s): CT abdomen pelvis w IV con ?? Accession Number(s): [id number] ? cc: Page Garcia DO; Name,Kiel BAILEY ? Report Number: ?? [id number]: Total DLP = 2421.00 mGy-cm ? CLINICAL [...] on ?? 04/06/2024 19:11:47 ? Dictated By: ?Andrew Ashley MD ? Signed By: ?<Electronically signed by Andrew Ashley MD in OV> ? 04/06/241911 ? DD/ 10 ? TD/TT: 04/06/241910 ? Photo Graphics Librarian: ? Procedure Note Sarmad, Jung - 04/06/[address] [address] CT Scan Report Signed Patient: Sarita Puga MMR#: [id number] 92 : 1965Acct:[id number] Age/Sex: 58 / FADM Date: 04/06/24 Loc: HO.ED Attending Dr: Ordering Physician: Page Garcia DO Date of Service: 04/06/24 Procedure(s): CT abdomen pelvis w IV con Accession Number(s): [id number] cc: Pgae Garcia DO; Name,Kiel BAILEY Report Number: [id number]: Total DLP = 2421.00 mGy-cm CLINICAL HISTORY: [...] in OV> 04/06/241911 DD/ 10 TD/TT: 04/06/241910 Photo Graphics Librarian: [facility] External Provider IMG CT PROCEDURES Edited Result - Final * CT Cervical Spine w/o Contrast (04/06/2024 7:02 PM EST) Anatomical Region Laterality Modality Spine, C-spine Computed Tomogra phy 04/06/2024 7:02 PM EST Narrative 04/06/2024 7:04 PM EST ? [facility] [place] [facility] ?[address] ?[place] [address] ? CT Scan Report ? Signed ? Patient: Puga,Shilpi ?MR#: [id number] ?? 92 ? : 1965 ?Acct:[id number] ? Age/Sex: 58 / F ?ADM Date: 04/06/24 ? Loc: HO.ED ? Attending Dr: ? Ordering Physician: Page Garcia DO ?? Date of Service: 04/06/24 ?? Procedure(s): CT cervical spine wo IV con ?? Accession Number(s): [id number] ? cc: Page Garcia DO; Name,Kiel BAILEY ? Report Number: ?? [id number]: Total DLP = ?0.00 mGy-cm ? CLINICAL [...] by Andrew Ashley MD in OV> ? 04/06/24 1903 ? DD/ 1902 ? TD/TT: 04/06/24 1902 ? Photo Graphics Librarian: ? Procedure Note Jung Bañuelos - 04/06/[address] [address] CT Scan Report Signed Patient: Sarita Puga [facility]#: [id number] 92 : 1965Acct:[id number] Age/Sex: 58 / FADM Date: 04/06/24 Loc: HO.ED Attending Dr: Ordering Physician: Page Garcia DO Date of Service: 04/06/24 Procedure(s): CT cervical spine wo IV con Accession Number(s): [id number] cc: Page Garcia ; Name,Kiel BAILEY Report Number: [id number]: Total DLP = 0.00 mGy-cm CLINICAL HISTORY: [...] in OV> 04/06/241902 DD/ 01 TD/TT: 04/06/241901 Photo Graphics Librarian: [facility] External Provider IMG CT PROCEDURES Edited Result - Final * XR Humerus Left (04/06/2024 2:32 PM EST) Anatomical Region Laterality Modality Upper Extremities, Humerus Left Radio graphic Imaging 04/06/2024 2:32 PM EST Narrative 04/06/2024 3:02 PM EST ? [facility] ?[address] ?[place] [address] ?XRay Report ? Signed ? Patient: Puga,Shilpi ?MR#: [id number] ?? 92 ? : 1965 ?Acct:[id number] ? Age/Sex: 58 / F ?ADM Date: 02/14/25 ? Loc: HO.ED ? Attending Dr: ? Ordering Physician: Page Garcia DO ?? Date of Service: 04/06/24 ?? Procedure(s): XR humerus LT ?? Accession Number(s): [id number] ? cc: Page Garcia DO; Name,Kiel BAILEY [...] the left humerus. ? Electronically signed by: ??Kenny Fernandes MD ??04/06/2024 02:59 PM EST ? Dictated By: ?Kenny Fernandes MD ? Signed By: ?<Electronically signed by Kenny Fernandes MD in OV> ?04/06/24 1459 ? DD/ 1432 ? TD/TT: 04/06/24 1446 ? Photo Graphics Librarian: ? Procedure Note Donotuseinterpreter, Image - 04/06/2024 [place] [address] XRay Report Signed Patient: Sarita Puga MMR#: [id number] 92 : 1965Acct:[id number] Age/Sex: 58 / FADM Date: 04/06/24 Loc: HO.ED Attending Dr: Ordering Physician: Page Garcia DO Date of Service: 04/06/24 Procedure(s): XR humerus LT Accession Number(s): [id number] cc: Page Garcia DO; Name,Kiel BAILEY EXAMINATION: [...] 04/06/24 1459 DD/ 1432 TD/TT: 04/06/24 1446 Photo Graphics Librarian: [facility] External Provider IMG XR PROCEDURES Edited Result - Final documented in this encounter Visit Diagnoses Not on filedocumented in this encounter Additional Health Concerns Assessment Noted Time PHQ-9 Depression Total Score: 4 09/02/19 24 10:30 AM EDT documented as of this encounter Care Teams Furnace Unloader Relationship Specialty Start Date End Date Name, MD Kiel [address] [place] [address] PCP - General Family Medicine 07/15/15 Katlyn Rodriguez PharmD [address] [place] [address] Pharmacist Internal Medicine 10/08/22 Marta Ovalle Passenger Service ManagerFire Sprinkler Designer 05/25/23 documented as of this encounter
--- OUTSIDE RECORDS SUMMARY | 2024-04-18 18:37 | XMS_ITS | Encounter Summary ---
Author Organization [employer] Address [address] 7t [place] [address] Care Team Providers Care Resistor Coater Name Role Phone Name, Kiel BAILEY Primary Care Provider [phone] Katlyn Rodriguez PharmD Unavailable [phone] Reason for Visit * Reason Onset Date Comments Recommend AUCTION ASSISTANT Tier 2 04/10/2024 Encounter Details Date Type Department Care Team ([facility] st Contact Info) Description 04/10/2024 Telephone [facility] [address] [place] [address] Opal Steiner, MARINA Recommend AUCTION ASSISTANT Tier 2 Social History Tobacco Use Types Packs/Day Years [...] Telephone Encounter - Opal Steiner RN - 04/10/2024 7:25 AM EST What AUCTION ASSISTANT Tier would you like this patient to be? I recommend Tier 2, please let me know if you agree or would rather patient be in another AUCTION ASSISTANT Tier. Tier 1 = HIGH RISK, Monthly AUCTION ASSISTANT visits Tier 2 = MODerate RISK, Q3 Month visits Tier 3 = LOW RISK = Q4-6 month visits documented in this encounter Plan of Treatment Upcoming Encounters Date Type Department Care Team (Late st Contact Info) Description 05/07/2024 10:30 AM EDT Medication Management [facility] [address] [place] [phone] Katlyn Rodriguez PharmD [address] [place] [address] 07/10/2024 9:00 AM EDT Clinical Support [facility] [address] [place] [phone] Opal Steiner, RN documented as of this [...] documented as of this encounter Care Teams Resistor Coater Relationship Specialty Start Date End Date Name, MD Kiel [address] [place] [address] PCP - General Family Medicine 07/15/15 Katlyn Rodriguez, PharmD [address] [place] [address] Pharmacist Internal Medicine 10/08/22 Marta Ovalle Looping Machine OperatorSlate Cutter 05/25/23 documented as of this encounter
--- OUTSIDE RECORDS SUMMARY | 2024-04-18 18:37 | XMS_ITS | Encounter Summary ---
Author Organization [employer] Address [address] [facility] 7t [place] [address] Care Team Providers Care Repeat Chief Name Role Phone Name, Kiel BAILEY Primary Care Provider [phone] Katlyn Rodriguez PharmD Unavailable [phone] Encounter Details Date Type Department Care [...] Description 05/07/2024 10:30 AM EDT Medication Management [address] [address] Puia, Katlyn, PharmD [address] [place] [address] 07/10/2024 9:00 AM EDT Clinical Support [address] [address] Opal Steiner, MARINA documented as of this [...] documented as of this encounter Care Teams Repeat Chief Relationship Specialty Start Date End Date Name, MD Kiel [address] [place] [address] PCP - General Family Medicine 07/15/15 Puia, Katlyn, PharmD [address] [place] [address] Pharmacist Internal Medicine 10/08/22 Marta Ovalle [employer] Admissions RepresentativeRaw Products Director 05/25/23 documented as of this encounter
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
--- OUTSIDE RECORDS SUMMARY | 2024-04-18 18:37 | XMS_ITS | Encounter Summary ---
Author Organization [employer] Address [address] [facility] 7t [place] [address] Care Team Providers Care Brake Drum Molder Name Role Phone Name, Kiel BAILEY Primary Care Provider Katlyn Rodriguez PharmD Unavailable [phone] Reason for Visit * Reason Onset Date Comments Durable Medical Equipment 01/24/2023 Encounter Details Date Type Department Care Team ([facility] st Contact Info) Description 01/24/2023 Telephone [facility] [address] [place] [address] Name, MD Kiel [address] [place] [address] Durable Medical Equipment Social History Tobacco Use [...] to errol. Any questions, contact pt at [phone] documented in this encounter Plan of Treatment Upcoming Encounters Date Type Department Care Team (Late st Contact Info) Description 05/07/2024 10:30 AM EDT Medication Management [address] [address] Puia, Katlyn, PharmD [address] [place] [address] 07/10/2024 9:00 AM EDT Clinical Support [facility] [address] [place] [address] Opal Stiener, RN documented as of this encounter Goals [...] documented as of this encounter Care Teams Brake Drum Molder Relationship Specialty Start Date End Date Name, MD Kiel [address] [place] [address] PCP - General Family Medicine 07/15/15 Katlyn Rodriguez PharmD [address] [place] [address] Pharmacist Internal Medicine 10/08/22 Marta Ovalle Skirt Panel AssemblerSales Service Rep 05/25/23 documented as of this encounter
--- OUTSIDE RECORDS SUMMARY | 2024-04-18 18:37 | XMS_ITS | Encounter Summary ---
Author Organization [employer] Address [address] [facility] 7t [place] [address] Care Team Providers Care Store Worker Name Role Phone Name, Kiel BAILEY Primary Care Provider [phone] Katlyn Rdoriguez PharmD Unavailable [phone] Reason for Visit * Reason Onset Date Comments Reschedule ASSEMBLY LINE SUPERVISOR R V appt from 03/26/24 03/27/2024 Encounter Details Date Type Department Care Team (Late st Contact Info) Description 03/27/2024 Telephone [facility] [address] [place] [address] Opal Steiner, RN Reschedule ASSEMBLY LINE SUPERVISOR R V appt from 03/26/24 Social History [...] - 03/27/2024 2:49 PM EST TC via sao tomean speaking staff member Mary Ann Benitez,, no answer. L/M asking her to call back to reschedule appt. documented in this encounter Plan of Treatment Upcoming Encounters Date Type Department Care Team (Late st Contact Info) Description 05/07/2024 10:30 AM EDT Medication Management [facility] [address] [place] [address] Katlyn Rodriguez, PharmD [address] [place] [phone] 07/10/2024 9:00 AM EDT Clinical Support [facility] [address] [place] [address] Opal Steiner, RN documented as of this [...] documented as of this encounter Care Teams Store Worker Relationship Specialty Start Date End Date Name, MD Kiel [address] [place] [address] PCP - General Family Medicine 07/15/15 Katlyn Rodriguez PharmD [address] [place] [address] Pharmacist Internal Medicine 10/08/22 Marta Ovalle Sand DiggerDental Assistant Instructor 05/25/23 documented as of this encounter
--- OUTSIDE RECORDS SUMMARY | 2024-04-18 18:37 | XMS_ITS | Encounter Summary ---
Author Organization [employer] Address [address] [facility] 7t [place] [address] Care Team Providers Care Chairlift Operator Name Role Phone Name, Kile BAILEY Primary Care Provider [phone] Katlyn Rodriguez PharmD Unavailable [phone] Reason for Visit * Reason Comments Med Refill Encounter Details Date Type Department Care Team ([facility] st Contact Info) Description 06/27/2023 Refill [facility] [address] [place] [address] Katlyn Rodriguez, PharmD [address] [place] [address] Tobacco use disorder Social History Tobacco Use [...] Description 05/07/2024 10:30 AM EDT Medication Management [address] [address] Puia, Katlyn, PharmD [address] [place] [address] 07/10/2024 9:00 AM EDT Clinical Support [address] [address] Opal Steiner RN documented as of this [...] documented as of this encounter Care Teams Chairlift Operator Relationship Specialty Start Date End Date Name, MD Kiel [address] [place] [address] PCP - General Family Medicine 07/15/15 Katlyn Rodriguez, Bin [address] [place] [address] Pharmacist Internal Medicine 10/08/22 Marta Ovalle Crm Dynamics DeveloperWood Window And Door Craftsman 05/25/23 documented as of this encounter
--- OUTSIDE RECORDS SUMMARY | 2024-04-18 18:37 | XMS_ITS | Clinical Summary ---
Author Organization [facility] Address [address] [place] [address] Care Team Providers Care Fire Safety Manager Name Role Phone Name, Kiel BAILEY Primary Care Provider [phone] Allergies Active Allergy Reactions Criticality Noted Date [...] age to complete this topic Care Teams Fire Safety Manager Relationship Specialty Start Date End Date Name, MD Kiel [address] [facility] [place] [address] PCP - General Internal Medicine 04/17/18
--- OUTSIDE RECORDS SUMMARY | 2024-04-18 18:37 | XMS_ITS | Encounter Summary ---
Author Organization [employer] Address [address] 7t [place] [address] Care Team Providers Care Senior Marketing Analyst Name Role Phone Name, Kiel BAILEY Primary Care Provider [phone] Katlyn Rodriguez PharmD Unavailable [phone] Encounter Details Date Type Department Care Team ([facility] st Contact Info) Description 03/30/2024 12:00 PM EST Immunization [facility] MEDICINE [address] [place] [address] Mary Light LPN Encounter for immunization (Primary [...] bite on 03/25/2024. Pt was referred to [facility] who directed her to [facility] to obtain vaccine Pt stated that the dog was not up to date on rabies vaccine so was directed to [facility] to be evaluated for rabies post exposure prophylaxis. Pt agreed Pt advised that there may be minor redness/swelling/pain at the injection site. Pt educated as to potential side effects of Tdap vaccine that could include mild fever/headache/ fatigue/nausea vomiting/ diarrhea/stomachaches. Pt expressed understanding that [facility] recommends remaining 15 minutes post- vaccination for observation. documented in this encounter Plan of Treatment Upcoming Encounters Date Type Department Care Team (Late st Contact Info) Description 05/07/2024 10:30 AM EDT Medication Management [facility] MEDICINE [address] [place] [address] Katlyn Rodriguez, PharmD [address] [place] [address] 07/10/2024 9:00 AM EDT Clinical Support [facility] MEDICINE [address] [place] [address] Opal Steiner, RN documented as of this [...] as of this encounter Care Teams Senior Marketing Analyst Relationship Specialty Start Date End Date Name, MD Kiel [address] [place] [address] PCP - General Family Medicine 07/15/15 Puia, Katlyn, PharmD [address] [place] [address] Pharmacist Internal Medicine 10/08/22 Marta Ovalle Power SuperintendentVermin Exterminator 05/25/23 documented as of this encounter
--- OUTSIDE RECORDS SUMMARY | 2024-04-18 18:37 | XMS_ITS | Encounter Summary ---
Author Organization [facility] Address [address] [place] [address] 7t [place] [address] Care Team Providers Care Intelligence Officer Basic Name Role Phone Kiel Shaffer MD Primary Care Provider [phone] Katlyn Rodriguez PharmD Unavailable [phone] Reason for Referral * Consultation (Routine) - Closed Specialty Diagnoses / Procedures Referred By Contact Referred To Contact Chiropractic Medicine Diagnoses Neck pain, acute Left upper arm pain Kiel Shaffer MD [address] [place] [address] Phone: tel: fax: [facility] [address] [place] [address] Phone: tel: fax: Referral ID Status Reason Start Date Expiration Date V isits Requested Visits Authorized [id number] Closed Specialty Services Required 03/27/2024 03/27/2025 20 20 Reason for Visit * Reason Comments Follow-up Encounter Details Date Type Department Care Team (Late st Contact Info) Description 03/27/2024 10:45 AM EST Office Visit [facility] MEDICINE [address] [place] [address] [phone] Kiel Shaffer MD [address] [place] [phone] Type 2 diabetes mellitus with other specified complication, with long-term current use of insulin ([facility]/HCC) (Primary Dx); Essential hypertension; Neck pain, acute; [...] recent blood work she had done at [facility]. Today she denies any chest pains [...] 60 tablet 1 Blood Glucose Monitoring Suppl (Redknee Lite) w/Device kit USE DIRECTED FOUR TIMES [...] taking: Reported on 02/02/2024) TechLite Plus Pen Sharon 32G X 4 MM misc USE FOUR [...] complication, with long-term current use of insulin ([facility]) Comments: Well controlled, continue current meds and [...] Description 05/07/2024 10:30 AM EDT Medication Management [address] [address] Puia, Katlyn, PharmD [address] [place] [address] 07/10/2024 9:00 AM EDT Clinical Support [address] [address] Opal Steiner RN Scheduled Referrals Name Type [...] Pressure 120/70(2024 11:11 AM EST) No Puia, Katlny, PharmD Hemoglobin A1c < 7 Result Component 7.5( 10:50 AM EST) No Puia, Katlyn, PharmD Record your blood sugar as directed Result Component No Puia, Katlyn, PharmD documented as of this encounter Procedures Procedure Name Priority Date/Time Associated Diagnosis Comments POCT GLYCATED HEMOGLOBIN, TOTAL Routine 03/27/2024 10:50 AM EST Type 2 diabetes mellitus with other specified complication, with long-term current use of insulin ([facility]) POCT GLUCOSE Routine 03/27/2024 10:48 AM EST Type 2 diabetes mellitus with other specified complication, with long-term current use of insulin ([facility]) documented in this encounter Results * (ABNORMAL) POCT HGB A1C (03/27/2024 10:50 AM EST) [facility] Hemoglobin A1C 7.5(A) 4.0 - 6.0 % QC Media Lot # [id number] Lot# Expiration Date [id number] Blood 03/27/2024 10:5 0 AM EST us Kiel Shaffer MD POINT OF CARE TEST ENTER/EDIT OR DERABLES Final Result * (ABNORMAL) POCT Glucose (03/27/2024 10:48 AM EST) Glucose Blood, POC 218(A) 60 - 200 mg/dL QC Media Lot # [id number] Lot# Expiration Date ,791 Blood Capillary blood specimen / Unknown 03/27/2024 10:48 AM EST Kiel Shaffer MD POINT OF CARE TEST ENTER/EDIT OR DERABLES Final Result documented in this encounter Visit Diagnoses Diagnosis Type 2 diabetes mellitus with other specified complication, with long-term current use of insulin ([facility])- Primary Essential hypertension Unspecified essential hypertension Neck pain, acute Left upper arm pain documented in this encounter Additional Health Concerns Assessment Noted Time PHQ-9 Depression Total Score: 4 09/02/19 24 10:30 AM EDT documented as of this encounter Care Teams Intelligence Officer Basic Relationship Specialty Start Date End Date Name, MD Kiel [address] [place] [address] PCP - General Family Medicine 07/15/15 Katlyn Rodriguez PharmD [address] [place] [address] Pharmacist Internal Medicine 10/08/22 Marta Ovalle Lactation NurseDrop Wire Aligner 05/25/23 documented as of this encounter
--- OUTSIDE RECORDS SUMMARY | 2024-04-18 18:37 | XMS_ITS | Encounter Summary ---
Author Organization [employer] Address [address] 7t [place] [address] Care Team Providers Care Bargeman Name Role Phone Name, Kiel BAILEY Primary Care Provider [phone] Katlyn Rodriguez PharmD Unavailable [phone] Encounter Details Date Type Department Care Team ([facility] st Contact Info) Description 03/23/2024 Refill [facility] MEDICINE [address] [place], [place] [phone] Name, MD Kiel [address] [place] [address] Essential hypertension Social History Tobacco Use Types [...] Description 05/07/2024 10:30 AM EDT Medication Management [address] [address] Puia, Katlyn, PharmD [address] [place] [address] 07/10/2024 9:00 AM EDT Clinical Support [address] [address] Opal Steiner, MARINA documented as of this [...] documented as of this encounter Care Teams Bargeman Relationship Specialty Start Date End Date Name, MD Kiel [address] [place] [address] PCP - General Family Medicine 07/15/15 Katlyn Rodriguez PharmD [address] [place] [address] Pharmacist Internal Medicine 10/08/22 Marta Ovalle Pc AnalystCarbon Dioxide Operator 05/25/23 documented as of this encounter
--- OUTSIDE RECORDS SUMMARY | 2024-04-18 18:37 | XMS_ITS | Encounter Summary ---
Author Organization [employer] Address [address] [facility] 7t [place] [address] Care Team Providers Care Stopper Maker Name Role Phone Name, Kiel BAILEY Primary Care Provider [phone] Katlyn Rodriguez PharmD Unavailable [phone] Reason for Visit * Reason Onset Date Comments Reschedule 08/01/2023 Encounter Details Date Type Department Care Team ([facility] st Contact Info) Description 08/01/2023 Telephone [facility] MEDICINE [address] [place] [address] Name, MD Kiel [address] [place] [address] Reschedule Social History Tobacco Use Types Packs/Day [...] 08/01/2023 9:55 AM EDT Triage call with [place] Mathematical Statistician [place] [id number] . Pt reports Covid + test this [...] 08/01/2023 9:04 AM EDT Patient cancelled todays SKIVER MACHINE OPERATOR RV appt today. Pt's SKIVER MACHINE OPERATOR appt has been rescheduled for chronic pain [...] AM EDT Tc from pt requesting r/s SKIVER MACHINE OPERATOR appt, stated is sick and suspect is COVID documented in this encounter Plan of Treatment Upcoming Encounters Date Type Department Care Team (Late st Contact Info) Description 05/07/2024 10:30 AM EDT Medication Management [facility] MEDICINE [address] [place] [address] Katlyn Rodriguez, PharmD [address] [place] [address] 07/10/2024 9:00 AM EDT Clinical Support [facility] [address] [place] [address] Opal Steiner, RN documented as of this [...] documented as of this encounter Care Teams Stopper Maker Relationship Specialty Start Date End Date Name, MD Kiel [address] [place] [address] PCP - General Family Medicine 07/15/15 Jennifer, Katlyn, PharmD [address] [place] [address] Pharmacist Internal Medicine 10/08/22 Marta Ovalle Rubber CurerCupola Repairer 05/25/23 documented as of this encounter
--- OUTSIDE RECORDS SUMMARY | 2024-04-18 18:37 | XMS_ITS | Encounter Summary ---
Author Organization [employer] Address [address] [facility] 7t [place] [address] Care Team Providers Care Taper And Floater Name Role Phone Name, Kiel BAILEY Primary Care Provider [phone] Katlyn Rodriguez PharmD Unavailable [phone] Reason for Visit * Reason Onset Date Comments Durable Medical Equipment 12/06/2022 Encounter Details Date Type Department Care Team ([facility] st Contact Info) Description 12/06/2022 Telephone [facility] MEDICINE [address] [place] [address] Name, MD Kiel [address] [place] [address] Durable Medical Equipment Social History Tobacco Use [...] to message above. Please contact pt at [phone] (Tanzanian) * Telephone Encounter - Jean-Paul Finch - 12/06/2022 3:29 PM EDT Tc from pt requesting status on some bed absorbant pads to not stain bed. Please contact pt at [phone] Tanzanian Speaker documented in this encounter Plan of Treatment Upcoming Encounters Date Type Department Care Team (Late st Contact Info) Description 05/07/2024 10:30 AM EDT Medication Management [facility] MEDICINE [address] [place] [address] Katlyn Rodriguez, PharmD [address] [place] [address] 07/10/2024 9:00 AM EDT Clinical Support [facility] MEDICINE [address] [place] [address] Opal Steiner, RN documented as of this [...] documented as of this encounter Care Teams Taper And Floater Relationship Specialty Start Date End Date Name, MD Kiel [address] [place] [address] PCP - General Family Medicine 07/15/15 Puia, Katlyn, PharmD [address] [place] [address] Pharmacist Internal Medicine 10/08/22 Marta Ovalle Clothes Drier AssemblerPredatory Game Hunter 05/25/23 documented as of this encounter
--- OUTSIDE RECORDS SUMMARY | 2024-04-18 18:37 | XMS_ITS | Encounter Summary ---
Author Organization [employer] Address [address] [place] [address] 7t [place] [address] Care Team Providers Care Rolling Mill Operator Name Role Phone Name, Kiel BAILEY Primary Care Provider [phone] Katlyn Rodriguez PharmD Unavailable [phone] Reason for Visit * Reason Comments Med Refill Encounter Details Date Type Department Care Team ([facility] Contact Info) Description 02/10/2022 Refill [facility] [address] [place], [place] [phone] Name, MD Kiel [address] [place] [address] Chronic pain syndrome (Primary Dx) Social History [...] Upcoming Encounters Date Type Department Care Team ([facility] Contact Info) Description 05/07/2024 10:30 AM EDT Medication Management [facility] MEDICINE [address] [place] [address] Kaltyn Rodriguez PharmD [address] [place] [address] 07/10/2024 9:00 AM EDT Clinical Support [facility] MED[facility]INE [address] [place] [address] Opal Steiner, MARINA documented as of this encounter Visit Diagnoses Diagnosis Chronic pain syndrome- Primary documented in this encounter Care Teams Rolling Mill Operator Relationship Specialty Start Date End Date Name, MD Kiel [address] [place] [address] PCP - General Family Medicine 07/15/15 Katlyn Rodriguez, AngieD [address] [place] [address] Pharmacist Internal Medicine 10/08/22 Marta Ovalle Superintendent Storage AreaComputer Operations Specialist 05/25/23 documented as of this encounter
--- OUTSIDE RECORDS SUMMARY | 2024-04-18 18:37 | XMS_ITS | Encounter Summary ---
Author Organization [employer] [facility] Address [address] [place] [address] 7t [place] [address] Care Team Providers Care Carbide Tool Die Maker Name Role Phone Name, Kiel BAILEY Primary Care Provider [phone] Katlyn Rodriguez PharmD Unavailable Reason for Visit * Reason Comments Med Refill Encounter Details Date Type Department Care Team (Late Contact Info) Description 04/25/2022 Refill [facility] MEDICINE [address] [place] [address] Name, MD Kiel [address] [place] [address] Diabetes mellitus type 2 in obese (CMS/HCC) [...] Description 05/07/2024 10:30 AM EDT Medication Management [facility] 230 [place] [address] Katlyn Rodriguez PharmD 230 [place] [address] 07/10/2024 9:00 AM EDT Clinical Support [address] [address] Opal Steiner RN documented as of this encounter Visit Diagnoses Diagnosis Diabetes mellitus type 2 in obese- Primary Type II or unspecified type diabetes mellitus without mention of complication, not stated as uncontrolled documented in this encounter Care Teams Carbide Tool Die Maker Relationship Specialty Start Date End Date Name, [place] [address] PCP - General Family Medicine 07/15/15 Katlyn Rodriguez PharmD [address] [place] [address] Pharmacist Internal Medicine 10/08/22 Marta Ovalle CnmtSoccer Player 05/25/23 documented as of this encounter
--- OUTSIDE RECORDS SUMMARY | 2024-04-18 18:37 | XMS_ITS | Encounter Summary ---
Author Organization [employer] Address [address] [facility] 7t [place] [address] Care Team Providers Care Hydrotreater Operator Name Role Phone Name, Kiel BAILEY Primary Care Provider [phone] Katlyn Rodriguez PharmD Unavailable [phone] Encounter Details Date Type Department Care [...] Description 05/07/2024 10:30 AM EDT Medication Management [address] [address] Puia, Katlyn, PharmD [address] [place] [address] 07/10/2024 9:00 AM EDT Clinical Support [address] [address] Opal Steiner, MARINA documented as of this [...] documented as of this encounter Care Teams Hydrotreater Operator Relationship Specialty Start Date End Date Name, MD Kiel [address] [place] [address] PCP - General Family Medicine 07/15/15 Puia, Katlyn, PharmD 230 [place] [address] Pharmacist Internal Medicine 10/08/22 Marta Ovalle Plastic Top AssemblerEngraver 05/25/23 documented as of this encounter
--- OUTSIDE RECORDS SUMMARY | 2024-04-18 18:37 | XMS_ITS | Encounter Summary ---
Author Organization [employer] Address [address] [facility] 7t [place] [address] Care Team Providers Care Care Professionals Name Role Phone Name, Kiel BAILEY Primary Care Provider [phone] Katlyn Rodriguez PharmD Unavailable [phone] Reason for Visit * Reason Comments Med Refill Encounter Details Date Type Department Care Team ([facility] st Contact Info) Description 04/15/2023 Refill [facility] MED[facility]INE [address] [place] [address] Yaneth Restrepo FNP [address] [place] [address] Diabetes mellitus type 2 in obese (CMS/HCC) [...] Description 05/07/2024 10:30 AM EDT Medication Management [address] [address] Puia, Katlyn, PharmD [address] [place] [address] 07/10/2024 9:00 AM EDT Clinical Support [address] [address] Opal Steiner RN documented as of this [...] documented as of this encounter Care Teams Care Professionals Relationship Specialty Start Date End Date Name, MD Kiel [address] [place] [address] PCP - General Family Medicine 07/15/15 Katlyn Rodriguez PharmD [address] [place] [address] Pharmacist Internal Medicine 10/08/22 Marta Ovalle Rabbit FancierFootwear Sales Representative 05/25/23 documented as of this encounter
--- OUTSIDE RECORDS SUMMARY | 2024-04-18 18:37 | XMS_ITS | Encounter Summary ---
Author Organization [facility] Address [address] [place] [address] Care Team Providers Care Adjuster Leader Name Role Phone Name, Kiel BAILEY Primary Care Provider [phone] Encounter Details Date Type Department Care Team Description 09/10/2022 Social Work [facility] [address] [place] [address] Adina Archer, [facility] Social History Tobacco Use Types Packs/Day Years [...] on filedocumented in this encounter Care Teams Adjuster Leader Relationship Specialty Start Date End Date Name, MD Kiel [address] [place] [address] [address] [place] [address] PCP - General Internal Medicine 04/17/18 documented as of this encounter
--- OUTSIDE RECORDS SUMMARY | 2024-04-18 18:37 | XMS_ITS | Encounter Summary ---
Author Organization [employer] Address [address] [facility] 7t [place] [address] Care Team Providers Care Sales Representative Jewelry Name Role Phone Name, Kiel BAILEY Primary Care Provider [phone] Katlyn Rodriguez PharmD Unavailable [phone] Reason for Visit * Reason Onset Date Comments Medication Problem 08/30/2023 Encounter Details Date Type Department Care Team ([facility] Contact Info) Description 08/30/2023 Telephone [facility] [address] [place], [place] [phone] Name, MD Kiel [address] [place] [address] Medication Problem Social History Tobacco Use Types [...] Description 05/07/2024 10:30 AM EDT Medication Management [address] [address] Katlyn Rodriguez, PharmD [address] [place] [address] 07/10/2024 9:00 AM EDT Clinical Support [facility] [address] [place] [address] Opal Steiner, MARINA documented as of this [...] as of this encounter Care Teams Sales Representative Jewelry Relationship Specialty Start Date End Date Name, MD Kiel [address] [place] [address] PCP - General Family Medicine 07/15/15 Katlyn Rodriguez, PharmD [address] [place] [address] Pharmacist Internal Medicine 10/08/22 Marta Ovalle Computerized Machine Fabric CutterMachine Operator Picker 05/25/23 documented as of this encounter
--- OUTSIDE RECORDS SUMMARY | 2024-04-18 18:38 | XMS_ITS | Encounter Summary ---
Author Organization [employer] [facility] Address [address] [facility] [address] 7t [place] [address] Care Team Providers Care Residential Pest Control Technician Name Role Phone Name, Kiel BAILEY Primary Care Provider [phone] Katlyn Rodriguez PharmD Unavailable Reason for Visit * Reason Onset Date Comments Referral 04/06/2024 Patient walked i n stating the referral pcp sent on 03/28/2024 needs to be changed to physical therapy not chiropractic. Patient said she went to the office [address] [place] [address] and they said it needs to be changed to physical therapy. Encounter Details Date Type Department Care Team (Late st Contact Info) Description 04/06/2024 Telephone [facility] MED[facility]INE [address] [place], [place] [phone] Name, MD Kiel [address] [place], [place] [phone] Referral (Patient walked in stating the referral pcp sent on 03/28/2024 needs to be changed to physical therapy not chiropractic. Patient said she went to the office [address] [place] [address] and they said it needs to be [...] she went to the office [address] [facility] and they said it needs to be changed to physical therapy. documented in this encounter Plan of Treatment Upcoming Encounters Date Type Department Care Team ([facility] st Contact Info) Description 05/07/2024 10:30 AM EDT Medication Management [facility] MED[facility]INE [address] [place] [address] Katlyn Rodriguez, PharmD [address] [place] [address] 07/10/2024 9:00 AM EDT Clinical Support [facility] MEDICINE [address] [place] [address] Opal Steiner, MARINA documented as of this [...] as of this encounter Care Teams Residential Pest Control Technician Relationship Specialty Start Date End Date Name, MD Kiel [address] [place] [address] PCP - General Family Medicine 07/15/15 Puia, Katlyn, PharmD [address] [place] [address] Pharmacist Internal Medicine 10/08/22 Marta Ovalle Upper TrimmerSnow Removing Supervisor 05/25/23 documented as of this encounter
--- OUTSIDE RECORDS SUMMARY | 2024-04-18 18:38 | XMS_ITS | Encounter Summary ---
Author Organization [employer] [facility] Address [address] [place] [address] 7t [place] [address] Care Team Providers Care Bistro Server Name Role Phone Name, Kiel BAILEY Primary Care Provider [phone] Katlyn Rodriguez PharmD Unavailable [phone] Encounter Details Date Type Department Care Team ([facility] Contact Info) Description 07/01/[address] [facility] MEDICINE [address] [place] [address] Name, MD Kiel [address] [place] [address] Social History Tobacco Use Types Packs/Day Years [...] Upcoming Encounters Date Type Department Care Team ([facility] Contact Info) Description 05/07/2024 10:30 AM EDT Medication Management [facility] MED[facility]INE [address] [place] [address] Katlyn Rodriguez, AngieD [address] [place] [address] 07/10/2024 9:00 AM EDT Clinical Support [facility] MED[facility]INE [address] [place] [address] Opal Steiner, RN documented as of this encounter Visit Diagnoses Not on filedocumented in this encounter Care Teams Bistro Server Relationship Specialty Start Date End Date Name, MD Kiel [address] [place] [address] PCP - General Family Medicine 07/15/15 Katlyn Rodriguez, AngieD [address] [place] [address] Pharmacist Internal Medicine 10/08/22 Marta Ovalle Lyft DriverStatistical Methods Teacher 05/25/23 documented as of this encounter
--- OUTSIDE RECORDS SUMMARY | 2024-04-18 18:38 | XMS_ITS | Encounter Summary ---
Author Organization [employer] [facility] Address [address] [place] [address] 7t [place] [address] Care Team Providers Care Bark Skinner Name Role Phone Name, Kiel BAILEY Primary Care Provider [phone] Katlyn Rodriguez PharmD Unavailable [phone] Encounter Details Date Type Department Care Team ([facility] Contact Info) Description 07/01/2022 Abstract [facility]INE [address] [place] [address] Name, MD Kiel [address] [place] [address] Social History Tobacco Use Types Packs/Day Years [...] Upcoming Encounters Date Type Department Care Team ([facility] Contact Info) Description 05/07/2024 10:30 AM EDT Medication Management [facility]INE [address] [place] [address] Katlyn Rodriguez PharmD [address] [place] [address] 07/10/2024 9:00 AM EDT Clinical Support [facility] [address] [place] [address] Opal Steiner RN documented as of this encounter Procedures Procedure Name Priority Date/Time Associated Diagnosis Comments COLONOSCOPY Routine 07/01/2022 4:37 PM EDT documented in this encounter Results * Colonoscopy (07/01/2022 4:37 PM EDT) Colonoscopy Normal Normal Narrative Emely Devine - 07/01/2022 4:37 PM EDT Recommended 5 year follow up ([facility]) Historical Provider HEALTH MAINTENANCE Final Result documented in this encounter Visit Diagnoses Not on filedocumented in this encounter Care Teams Bark Skinner Relationship Specialty Start Date End Date Name, MD Kiel [address] [place] [address] PCP - General Family Medicine 07/15/15 Katlyn Rodriguez, Bin [address] [place] [address] Pharmacist Internal Medicine 10/08/22 Marta Ovalle Line PullerFacer Operator 05/25/23 documented as of this encounter
--- OUTSIDE RECORDS SUMMARY | 2024-04-18 18:38 | XMS_ITS | Encounter Summary ---
Author Organization [employer] [facility] Address [address] [facility] 7t [place] [address] Care Team Providers Care Dry House Worker Name Role Phone Name, Kiel BAILEY Primary Care Provider [phone] Katlyn Rodriguez PharmD Unavailable [phone] Encounter Details Date Type Department Care Team ([facility] Contact Info) Description 02/23/2022 Orders Only [facility] [address] [place] [address] Name, MD Kiel [address] [place] [address] Social History Tobacco Use Types Packs/Day Years [...] Upcoming Encounters Date Type Department Care Team ([facility] Contact Info) Description 05/07/2024 10:30 AM EDT Medication Management [facility]INE [address] [place] [address] PuiaKatlyn, PharmD [address] [place] [address] 07/10/2024 9:00 AM EDT Clinical Support [facility]INE [address] [place], [place] [phone] Opal Steiner, RN documented as of this encounter Visit Diagnoses Not on filedocumented in this encounter Care Teams Dry House Worker Relationship Specialty Start Date End Date Name, MD Kiel [address] [place], [place] [phone] PCP - General Family Medicine 07/15/15 Katlyn Rodriguez PharmD [address] [place] [address] Pharmacist Internal Medicine 10/08/22 Marta Ovalle Hr InternshipClaims Processor 05/25/23 documented as of this encounter
--- OUTSIDE RECORDS SUMMARY | 2024-04-18 18:38 | XMS_ITS | Encounter Summary ---
Author Organization [facility] Address [address] [place] [address] 7t [place] [address] Care Team Providers Care Belly Packer Name Role Phone Name, Kiel BAILEY Primary Care Provider [phone] Katlyn Rodriguez PharmD Unavailable [phone] Reason for Visit * Reason Comments Med Refill Encounter Details Date Type Department Care Team (Late st Contact Info) Description 07/02/2022 Refill [facility] [address] [place] [address] Name, MD Kiel [address] [place] [address] Chronic pain syndrome Social History Tobacco Use [...] 10:30 AM EDT Medication Management [facility] [address] [place] [address] Katlyn Rodriguez PharmD [address] [place] [address] 07/10/2024 9:00 AM EDT Clinical Support [facility] [address] [place], [place] [phone] Opal Steiner RN documented as of this encounter Visit Diagnoses Diagnosis Chronic pain syndrome documented in this encounter Care Teams Belly Packer Relationship Specialty Start Date End Date Name, MD Kiel [address] [place] [address] PCP - General Family Medicine 07/15/15 Katlyn Rodriguez PharmD [address] [place] [address] Pharmacist Internal Medicine 10/08/22 Marta Ovalle Hydrometeorological TechnicianInside Wirer 05/25/23 documented as of this encounter
--- OUTSIDE RECORDS SUMMARY | 2024-04-18 18:38 | XMS_ITS | Encounter Summary ---
Author Organization [employer] Address [address] [facility] 7t [place] [address] Care Team Providers Care Ambulance Attendant Name Role Phone Name, Kiel BAILEY Primary Care Provider [phone] Katlyn Rodriguez PharmD Unavailable [phone] Reason for Visit * Reason Onset Date Comments Appointment Request 02/29/2024 Encounter Details Date Type Department Care Team ([facility] Contact Info) Description 02/29/2024 Telephone [facility]INE [address] [place], [place] [phone] Name, MD Kiel [address] [place] [address] Appointment Request Social History Tobacco Use Types [...] different date and time. Pt does speak salvadorean so you will need an room server. documented in this encounter Plan of Treatment Upcoming Encounters Date Type Department Care Team (Late st Contact Info) Description 05/07/2024 10:30 AM EDT Medication Management [facility] MED[facility]INE [address] [place] [address] Katlyn Rodriguez PharmD [address] [place] [address] 07/10/2024 9:00 AM EDT Clinical Support [address] [address] Opal Steiner, MARINA documented as of this encounter Goals Goal Patient Goal Type Associated Problems Recent Progress Patient-Stated? Author Record your blood pressure once per day Blood Pressure No Prema Rodriguezsa, PharmD Blood Pressure < 140/90 Blood Pressure [...] documented as of this encounter Care Teams Ambulance Attendant Relationship Specialty Start Date End Date Name, MD Kiel [address] [place] [address] PCP - General Family Medicine 07/15/15 Katlyn Rodriguez, PharmD [address] [place] [address] Pharmacist Internal Medicine 10/08/22 Marta Ovalle WelderWireless Sales Associate 05/25/23 documented as of this encounter
--- OUTSIDE RECORDS SUMMARY | 2024-04-18 18:38 | XMS_ITS | Encounter Summary ---
Author Organization [employer] [facility] Address [address] [place] [address] 7t [place] [address] Care Team Providers Care Weapons Engineer Name Role Phone Name, Kiel BAILEY Primary Care Provider [phone] Katlyn Rodriguez PharmD Unavailable [phone] Reason for Visit * Reason Comments Med Refill Encounter Details Date Type Department Care Team ([facility] Contact Info) Description 07/16/2022 Refill [facility] [address] [place] [address] Name, MD Kiel [address] [place] [address] Chronic pain syndrome Social History Tobacco Use [...] Upcoming Encounters Date Type Department Care Team ([facility] st Contact Info) Description 05/07/2024 10:30 AM EDT Medication Management [address] [address] Kaltyn Rodriguez PharmD [address] [place] [address] 07/10/2024 9:00 AM EDT Clinical Support [address] [address] Opal Steiner, RN documented as of this encounter Visit Diagnoses Diagnosis Chronic pain syndrome documented in this encounter Additional Health Concerns Assessment Noted Time PHQ-9 Depression Total Score: 7 07/15/19 2:39 PM EDT documented as of this encounter Care Teams Weapons Engineer Relationship Specialty Start Date End Date Name, MD Kiel [address] [place] [address] PCP - General Family Medicine 07/15/15 Katlyn Rodriguez PharmD [address] [place] [address] Pharmacist Internal Medicine 10/08/22 Marta Ovalle Claims Correspondence ClerkDirector Of Catering Sales 05/25/23 documented as of this encounter
--- OUTSIDE RECORDS SUMMARY | 2024-04-18 18:38 | XMS_ITS | Encounter Summary ---
Author Organization [employer] Address [address] [facility] 7t [place] [address] Care Team Providers Care Disability Advocate Name Role Phone Name, Kiel BAILEY Primary Care Provider [phone] Katlyn Rodriguez PharmD Unavailable [phone] Reason for Visit * Reason [place] Date [facility] Disposable unde rpad / chux pad largeGloves N-steril per (bx) Encounter Details Date Type Department Care Team (Late st Contact Info) Description 04/02/2024 Telephone [facility] 230 [place] [address] Name, MD Kiel [address] [place] [address] [facility] (Disposable underpad / chux pad large/Gloves N-steril [...] signed by the PCP and faxed to [employer]. Form has been sent in for scanning. * Telephone Encounter - Elijah Troy [place] - 04/02/2024 10:39 AM EST Received medical necessity form from [employer] for Disposable underpad / chux pad large, Gloves N-steril per (bx). Form has been filled out and placed on PCP's desk for signature. documented in this encounter Plan of Treatment Upcoming Encounters Date Type Department Care Team (Late st Contact Info) Description 05/07/2024 10:30 AM EDT Medication Management [facility] [address] [place] [address] Puia, Katlyn, PharmD [address] [place] [address] 07/10/2024 9:00 AM EDT Clinical Support [facility] [address] [place] [address] Opal Steiner, RN documented as of this [...] documented as of this encounter Care Teams Disability Advocate Relationship Specialty Start Date End Date Name, MD Kiel [address] [place] [address] PCP - General Family Medicine 07/15/15 Puia, Katlyn, PharmD [address] [place] [address] Pharmacist Internal Medicine 10/08/22 Marta Ovalle Pediatric PhysicianLug Breaker And Wire Puller 05/25/23 documented as of this encounter
--- OUTSIDE RECORDS SUMMARY | 2024-04-18 18:38 | XMS_ITS | Encounter Summary ---
Author Organization [employer] [facility] Address [address] [place] [address] 7t [place] [address] Care Team Providers Care Talend Etl Developer Name Role Phone Name, Kiel BAILEY Primary Care Provider [phone] Katlyn Rodriguez PharmD Unavailable [phone] Reason for Visit * Reason Comments Med Refill Encounter Details Date Type Department Care Team (Late st Contact Info) Description 06/28/2022 Refill [facility] MEDICINE [address] [place] [address] Name, MD Kiel [address] [place] [address] Chronic pain syndrome Social History Tobacco Use [...] Encounters Date Type Department Care Team ([facility] Contact Info) Description 05/07/2024 10:30 AM EDT Medication Management [facility]INE [address] [place] [address] Katlyn Rodriguez PharmD [address] [place] [address] 07/10/2024 9:00 AM EDT Clinical Support [facility] 230 [place], [place] [phone] Opal Steiner RN documented as of this encounter Visit Diagnoses Diagnosis Chronic pain syndrome documented in this encounter Care Teams Talend Etl Developer Relationship Specialty Start Date End Date Name, MD Kiel [address] [place] [address] PCP - General Family Medicine 07/15/15 Katlyn Rodriguez PharmD [address] [place] [address] Pharmacist Internal Medicine 10/08/22 Marta Ovalle Campaign Management Senior ManagerEnvironmental Health Technician 05/25/23 documented as of this encounter
== END 2024-04-18 15:04 | disposition home or self-care (01) ==
LOC: HO.US 15:03
PROVIDERS: PCP Internal Medicine Geriatric Medicine; Visit Provider Emergency Medicine
DX: M79.602 Pain in left arm (principal); R60.0 Localized edema
CPT/HCPCS: 93971

== ENCOUNTER → 2024-04-18 15:06 | Outpatient (BNV) | payer MEDICAID, SELFPAY | PROVIDERS: PCP Internal Medicine Geriatric Medicine; Visit Provider Radiology Diagnostic Radiology | DX: M79.602 Pain in left arm (principal) | CPT/HCPCS: 93971 ==

== ENCOUNTER 2024-04-27 14:27 | Outpatient (REF) | payer OTHER, SELFPAY ==
--- NOTE | ~2024-04-27 | XR_ITS ---
EXAMINATION: XR RIBS, LEFT CLINICAL INFORMATION: PAIN COMPARISON: None available. TECHNIQUE: 3 views of the left ribs were obtained. FINDINGS: Lungs are clear. No consolidation, pneumothorax, or pleural effusion. The cardiomediastinal silhouette and pulmonary vasculature are normal. Multiple views of left ribs reveal no visible fracture or bony abnormality. The soft tissues are normal.. XR/XR ribs LT min 3V w CXR1V IMPRESSION: Normal chest x-ray. Normal left rib exam. Electronically signed by: Garry Pollock MD 04/27/2024 03:54 PM EST
--- OUTSIDE RECORDS SUMMARY | 2024-04-27 16:09 | XMS_ITS | Encounter Summary ---
Author Organization [employer] Address [address] [facility] 7t [place] [address] Care Team Providers Care Human Services Supervisor Name Role Phone Name, Kiel BAILEY Primary Care Provider [phone] Katlyn Rodriguez PharmD Unavailable [phone] Encounter Details Date Type Department Care [...] Description 05/07/2024 10:30 AM EDT Medication Management [address] [address] Puia, Katlyn, PharmD [address] [place] [address] 07/10/2024 9:00 AM EDT Clinical Support [address] [address] Opal Steiner, MARINA documented as of this encounter Goals Goal Patient Goal Type Associated Problems Recent Progress Patient-Stated? Author Record your blood pressure once per day Blood Pressure No Puia, Katlyn, PharmD Blood Pressure < 140/90 Blood Pressure 118/66(2024 1:36 PM EST) No Puia, Katlyn, PharmD Hemoglobin A1c [...] as of this encounter Care Teams Human Services Supervisor Relationship Specialty Start Date End Date Name, MD Kiel [address] [place] [address] PCP - General Family Medicine 07/15/15 Puia, Katlyn, PharmD [address] [place] [address] Pharmacist Internal Medicine 10/08/22 Marta Ovalle Compotype OperatorHim Director 05/25/23 documented as of this encounter
--- OUTSIDE RECORDS SUMMARY | 2024-04-27 16:09 | XMS_ITS | Clinical Summary ---
Author Organization 175 [facility] Address [address] [place] [address] Phone Care Team Providers Care Toe Lining Closer Name Role Phone Name, Kiel BAILEY Primary Care Provider [phone] Allergies Active Allergy Reactions Criticality Noted Date [...] 10/08/2009 Overview (12/12/2023): The patient follows with [facility] and is treated with [...] EST - 02/06/2024 12:[address] [facility] [address] [place] [id number] Dada Ceja MD [place]uk[place], MD Renée [...] TOTAL HYSTERECTOMY WITH BSO; COMMENT: for bleeding, [facility] Medical History Medical History Date Comments [...] - 100 mg/dL 02/06/2024 11:[address] [facility] Blood Capillary blood specimen / Unknown 02/06/2024 11:09 AM EST 02/06/2024 11:10 AM EST Adrian Chinchilla MD LAB POINT OF CARE TE ST DOCKED DEVICE UNSOLICITED RESULTS Final Result [facility] [address] [place] [address], * Troponin I high sensitivity (02/06/2024 4:38 AM EST) Only the most recent of2 resultswithin the time period is included. [facility] High Sensitivity Troponin I 4 <=54 ng/L LAB CHEMISTRY METHOD 02/06/2024 5:[address] [facility] Blood Venous blood specimen / Unknown Venipuncture / Unknown 02/06/2024 4:38 AM EST 02/06/2024 5:[address] [facility] - 02/06/2024 5:37 AM EST High levels of biotin in samples may falsely decrease hsTroponin values. ??Use caution when interpreting hsTroponin results in patients taking biotin who exhibit renal impairment (eGFR <60) or in patients taking more than 20 mg/day of biotin. us Cindy SEGURA LAB BLOOD ORDERABLES Final R esult Performing Organization Address City/[facility]/ZIP Co de Phone Number [facility] [address] [place] [address], [place] [phone] * Light blue tube (02/06/2024 2:59 AM EST) Pathologist [facility] Extra Tube Hold for add-ons. 02/06/2024 5:[address] [facility] Comment:Auto resulted. Blood Venous blood specimen / Unknown 02/06/2024 2:59 AM EST 02/06/2024 3:14 AM EST us Delroy Jimenez MD LAB BLOOD ORDERABLES Final Res ult Performing Organization Address [facility]/ZIP Co de Phone Number [facility] [address] [place] [address], [place] [phone] * (ABNORMAL) Complete blood count (02/06/2024 2:59 AM EST) WBC 10.0 4.8 - 10.8 K/mcL LAB HEMETOLOGY METHOD 02/06/2024 3:[address] [facility] RBC 4.40 3.80 - 4.80 M/mcL LAB HEMETOLOGY METHOD 02/06/2024 3:[address] [facility] Hemoglobin 12.2 11.5 - 16.0 g/dL LAB HEMETOLOGY METHOD 02/06/2024 3:[address] [facility] Hematocrit 38.9 35.0 - 47.0 % LAB HEMETOLOGY METHOD 02/06/2024 3:[address] [facility] MCV 88.4 79.0 - 98.0 FL LAB HEMETOLOGY METHOD 02/06/2024 3:[address] [facility] MCH 27.7 27.0 - 32.0 pcg LAB HEMETOLOGY METHOD 02/06/2024 3:[address] [facility] MCHC 31.4(L) 32.0 - 37.0 g/dL LAB HEMETOLOGY METHOD 02/06/2024 3:[address] [facility] RDW 13.2 11.0 - 15.0 % LAB HEMETOLOGY METHOD 02/06/2024 3:[address] [facility] Platelets 175 130 - 400 K/mcL LAB HEMETOLOGY METHOD 02/06/2024 3:[address] [facility] MPV 12.4(H) 7.0 - 11.0 FL LAB HEMETOLOGY METHOD 02/06/2024 3:[address] [facility] NRBC 0.0 <1.0 % LAB HEMETOLOGY METHOD 02/06/2024 3:[address] [facility] NRBC Absolute 0.00 <0.10 K/mcL LAB HEMETOLOGY METHOD 02/06/2024 3:[address] [facility] Blood Venous blood specimen / Unknown Venipuncture / Unknown 02/06/2024 2:59 AM EST 02/06/2024 3:13 AM EST us Cindy SEGURA LAB BLOOD ORDERABLES Final R esult [facility] [address] [place] [address], * (ABNORMAL) Basic metabolic panel (02/06/2024 2:59 AM EST) Only the most recent of2 resultswithin the time period is included. Sodium 136 133 - 145 mmol/L LAB CHEMISTRY METHOD 02/06/2024 3:36 AM [facility] Potassium 4.1 3.5 - 5.5 mmol/L LAB CHEMISTRY METHOD 02/06/2024 3:36 AM [facility] Chloride 104 96 - 110 mmol/L LAB CHEMISTRY METHOD 02/06/2024 3:36 AM [facility] CO2 23 21 - 32 mmol/L LAB CHEMISTRY METHOD 02/06/2024 3:36 AM [facility] Anion Gap 9 3 - 11 LAB CHEMISTRY METHOD 02/06/2024 3:36 AM [facility] Glucose 244(H) 70 - 100 mg/dL LAB CHEMISTRY METHOD 02/06/2024 3:36 AM [facility] BUN 17 5 - 25 mg/dL LAB CHEMISTRY METHOD 02/06/2024 3:36 AM [facility] Creatinine 0.71 0.50 - 1.10 mg/dL LAB CHEMISTRY METHOD 02/06/2024 3:36 AM [facility] eGFR 99 >=60 mL/min/1. 73m2 LAB CHEMISTRY METHOD 02/06/2024 3:36 AM [facility] Comment:Calculation based on the??Chronic Kidney Disease Epidemiology Collaboration (CKD-EPI) equation refit??without adjustment for race. BUN/Creatinine Ratio 23.9 LAB CHEMISTRY METHOD 02/06/2024 3:36 AM [facility] Calcium 9.3 8.5 - 10.5 mg/dL LAB CHEMISTRY METHOD 02/06/2024 3:36 AM [facility] Blood Venous blood specimen / Unknown Venipuncture / Unknown 02/06/2024 2:59 AM EST 02/06/2024 3:13 AM EST us Cindy SEGURA LAB BLOOD ORDERABLES Final R esult [facility] [address] [place] [address], [place] [phone] * XR Chest 2 Views (02/05/2024 7:17 [...] Signed Date: 02/05/2024 08:11 ET Workstation ID: [id number] Transcribed By: Self Edit Transcribed Date: 02/05/2024 [...] Signed Date: 02/05/2024 08:11 ET Workstation ID: [id number] Transcribed By: Self Edit Transcribed Date: 02/05/2024 08:11 ET us Kathy Nazario MD IMG XR PROCEDURES Final Result * ECG 12 lead (02/05/2024 7:01 AM EST) Ventricular Rate ECG 80 BPM GEMUSE Atrial Rate 80 BPM GEMUSE P-R Interval 130 ms GEMUSE QRS Duration 96 ms GEMUSE Q-T Interval 344 ms GEMUSE QTc 396 ms GEMUSE P Wave [place] 21 degrees GEMUSE R [place] -9 degrees GEMUSE T [place] 3 degrees GEMUSE ECG Interpretation Normal sinus [...] K/mcL LAB HEMETOLOGY METHOD 02/05/2024 7:16 AM [facility] RBC 5.00(H) 3.80 - 4.80 M/[facility] LAB HEMETOLOGY METHOD 02/05/2024 7:16 AM [facility] Hemoglobin 13.8 11.5 - 16.0 g/dL LAB HEMETOLOGY METHOD 02/05/2024 7:16 AM [facility] Hematocrit 43.7 35.0 - 47.0 % LAB HEMETOLOGY METHOD 02/05/2024 7:16 AM [facility] MCV 87.1 79.0 - 98.0 FL LAB HEMETOLOGY METHOD 02/05/2024 7:16 AM [facility] MCH 27.5 27.0 - 32.0 pcg LAB HEMETOLOGY METHOD 02/05/2024 7:16 AM [facility] MCHC 31.6(L) 32.0 - 37.0 g/dL LAB HEMETOLOGY METHOD 02/05/2024 7:16 AM [facility] RDW 13.3 11.0 - 15.0 % LAB HEMETOLOGY METHOD 02/05/2024 7:16 AM [facility] Platelets 200 130 - 400 K/mcL LAB HEMETOLOGY METHOD 02/05/2024 7:16 AM [facility] MPV 12.4(H) 7.0 - 11.0 FL LAB HEMETOLOGY METHOD 02/05/2024 7:16 AM [facility] NRBC 0.0 <1.0 % LAB HEMETOLOGY METHOD 02/05/2024 7:16 AM [facility] NRBC Absolute 0.00 <0.10 K/mcL LAB HEMETOLOGY METHOD 02/05/2024 7:16 AM [facility] Neutrophils Relative 64.1 % LAB HEMETOLOGY METHOD 02/05/2024 7:16 AM [facility] Lymphocytes Relative 27.9 % LAB HEMETOLOGY METHOD 02/05/2024 7:16 AM [facility] Monocytes Relative 6.5 % LAB HEMETOLOGY METHOD 02/05/2024 7:16 AM [facility] Eosinophils Relative 0.7 % LAB HEMETOLOGY METHOD 02/05/2024 7:16 AM [facility] Basophils Relative 0.6 % LAB HEMETOLOGY METHOD 02/05/2024 7:16 AM [facility] Immature Granulocytes Relative 0.2 % LAB HEMETOLOGY METHOD 02/05/2024 7:16 AM [facility] Neutrophils Absolute 5.82 1.50 - 7.00 K/mcL LAB HEMETOLOGY METHOD 02/05/2024 7:16 AM [facility] Lymphocytes Absolute 2.53 1.00 - 5.00 K/mcL LAB HEMETOLOGY METHOD 02/05/2024 7:[address] [facility] Monocytes Absolute 0.59 0.20 - 1.00 K/mcL LAB HEMETOLOGY METHOD 02/05/2024 7:[address] [facility] Eosinophils Absolute 0.06 0.00 - 0.50 K/mcL LAB HEMETOLOGY METHOD 02/05/2024 7:[address] [facility] Basophils Absolute 0.05 0.00 - 0.20 K/mcL LAB HEMETOLOGY METHOD 02/05/2024 7:16 AM [facility] Immature Granulocytes Absolute 0.02 0.00 - 0.03 K/mcL LAB HEMETOLOGY METHOD 02/05/2024 7:16 AM [facility] Blood Venous blood specimen / Unknown Venipuncture / Unknown 02/05/2024 6:55 AM EST 02/05/2024 7:05 AM EST Kathy Nazario MD LAB BLOOD ORDERABLES Fin al Result [facility] [address] [place] [address], * Respiratory virus panel molecular study (02/05/2024 6:51 AM EST) Adenovirus Detection by PCR Not Detected Not Detected LAB MICROBIOLOGY METHOD 02/05/2024 8:[address] [facility] Influenza A PCR Not Detected Not Detected LAB MICROBIOLOGY METHOD 02/05/2024 8:09 AM [facility] Influenza B PCR Not Detected Not Detected LAB MICROBIOLOGY METHOD 02/05/2024 8:[address] [facility] Coronavirus 229E Not Detected Not Detected LAB MICROBIOLOGY METHOD 02/05/2024 8:09 AM [facility] Coronavirus HKU1 Not Detected Not Detected LAB MICROBIOLOGY METHOD 02/05/2024 8:[address] [facility] Coronavirus OC43 Not Detected Not Detected LAB MICROBIOLOGY METHOD 02/05/2024 8:09 AM [facility] Coronavirus NL63 Not Detected Not Detected LAB MICROBIOLOGY METHOD 02/05/2024 8:09 AM [facility] Parainfluenza Virus 1 Not Detected Not Detected LAB MICROBIOLOGY METHOD 02/05/2024 8:09 AM [facility] Parainfluenza Virus 2 Not Detected Not Detected LAB MICROBIOLOGY METHOD 02/05/2024 8:09 AM [facility] Parainfluenza Virus 3 Not Detected Not Detected LAB MICROBIOLOGY METHOD 02/05/2024 8:09 AM [facility] Parainfluenza Virus 4 Not Detected Not Detected LAB MICROBIOLOGY METHOD 02/05/2024 8:09 AM [facility] RSV PCR Not Detected Not Detected LAB MICROBIOLOGY METHOD 02/05/2024 8:09 AM [facility] Human Metapneumovirus A and B Not Detected Not Detected LAB MICROBIOLOGY METHOD 02/05/2024 8:09 AM [facility] Rhinovirus/Entero virus Not Detected Not Detected LAB MICROBIOLOGY METHOD 02/05/2024 8:09 AM [facility] Bordetella pertussis Not Detected Not Detected LAB MICROBIOLOGY METHOD 02/05/2024 8:09 AM [facility] Bordetella parapertussis Not Detected Not Detected LAB MICROBIOLOGY METHOD 02/05/2024 8:09 AM [facility] Mycoplasma pneumo by PCR Not Detected Not Detected LAB MICROBIOLOGY METHOD 02/05/2024 8:09 AM [facility] Chlamydia pneumoniae Not Detected Not Detected LAB MICROBIOLOGY METHOD 02/05/2024 8:09 AM [facility] SARS COV-2 Not Detected Not Detected LAB MICROBIOLOGY METHOD 02/05/2024 8:09 AM [facility] Swab Both anterior nares / Unknown Non-blood Collection / Unknown 02/05/2024 6:51 AM EST 02/05/2024 7:05 AM EST Narrative [facility] - 02/05/2024 8:09 AM EST Testing was performed using the Syn[employer] Respiratory Pathogen PCR Assay. All results must [...] are below the limit of detection. Result [facility] Kathy Nazario MD LAB MICROBIOLOGY - GENER AL ORDERABLES Final Result [facility] [address] [place] [address], * ECG-Annotated (02/05/2024) Result [facility] Provider Onbase ECG ORDERABLES Final Result * (ABNORMAL) Hemoglobin A1c (11/20/2014) Pathologist [facility] Hemoglobin A1C 7.5(A) 4.0 - 6.0 % Blood Venous blood specimen / Unknown Result [facility] Provider LAB BLOOD ORDERABLES Alis l Result * Urine Albumin Creatinine Ratio (05/10/2014) Pathologist [facility] Urine Albumin Creatinine Ratio abstracted Result [facility] Historical Provider HEALTH MAINTENANCE Final Result * (ABNORMAL) Lipid panel (05/10/2014) Pathologist [facility] LDL/HDL Ratio 4 0 - 4 Triglycerides 360(A) 0 - 150 mg/dL Cholesterol 179 0 - 200 mg/dL HDL 42 >=40 mg/dL LDL Cholesterol 65 0 - 100 mg/dL Blood Venous blood specimen / Unknown Result [facility] Historical Provider LAB BLOOD ORDERABLES Alis l [...] currently active code status orders. Care Teams Toe Lining Closer Relationship Specialty Start Date End Date Name, MD Kiel [address] [place], [place] PCP - General Internal Medicine 08/28/15
--- OUTSIDE RECORDS SUMMARY | 2024-04-27 16:09 | XMS_ITS | Encounter Summary ---
Author Organization [employer] Address [address] [facility] 7[address] [place] [address] Care Team Providers Care Flap Maker Name Role Phone Name, Kiel BAILEY Primary Care Provider [phone] Katlyn Rodriguez PharmD Unavailable [phone] Reason for Visit * Reason Comments Med Refill Encounter Details Date Type Department Care Team ([facility] st Contact Info) Description 06/27/2023 Refill [facility] [address] [place] [address] Katlyn Rodriguez, PharmD [address] [place] [address] Tobacco use disorder Social History Tobacco Use [...] Description 05/07/2024 10:30 AM EDT Medication Management [address] [address] Puia, Katlyn, PharmD [address] [place] [address] 07/10/2024 9:00 AM EDT Clinical Support [address] [address] Opal Steiner RN documented as of this [...] documented as of this encounter Care Teams Flap Maker Relationship Specialty Start Date End Date Name, MD Kiel [address] [place] [address] PCP - General Family Medicine 07/15/15 Katlyn Rodriguez, Bin [address] [place] [address] Pharmacist Internal Medicine 10/08/22 Marta Ovalle Allergy NurseDatabase Security Expert 05/25/23 documented as of this encounter
--- OUTSIDE RECORDS SUMMARY | 2024-04-27 16:09 | XMS_ITS | Encounter Summary ---
Author Organization [facility] Address [address] [place] [address] Care Team Providers Care Family Living Educator Name Role Phone Name, Kiel BAILEY Primary Care Provider [phone] Encounter Details Date Type Department Care Team (Late st Contact Info) Description 11/24/2023 10:30 AM EDT Hospital Encounter TH HISTORIC ENCOUNTERS EASTERN CONVERSION ONLY Geoffrey-Art Vitale MD [address] [place] [address] Social History Tobacco Use Types [...] documented as of this encounter Care Teams Family Living Educator Relationship Specialty Start Date End Date Name, MD Kiel 4 [facility] [place] PCP - General Internal Medicine 08/28/15 documented as of this encounter
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
--- OUTSIDE RECORDS SUMMARY | 2024-04-27 16:09 | XMS_ITS | Encounter Summary ---
Author Organization [facility] Address [address] [place] [address] Care Team Providers Care Pest Control Worker Name Role Phone Name, Kiel BAILEY Primary Care Provider [phone] Encounter Details Date Type Department Care Team (Late st Contact Info) Description 11/24/2023 9:53 AM EDT Hospital Encounter TH HISTORIC ENCOUNTERS EASTERN CONVERSION ONLY Geoffrey-Art Vitale MD [address] [place] [address] Social History Tobacco Use Types [...] 2:17 PM Encounter Date: 11/24/2023 Status: Signed Tacking Stitch Remover: Art Davis MD (Physician) CHIEF COMPLAINT: Chief Complaint Patient presents with ? Follow-up Diffuse large B-cell lymphoma Stage III Completed 6 cycles of R-CHOP in July 23, 2018 IDENTIFIER:Sarita Puga is a 58 y.o. female. HPI: The patient returns for follow up of Large B-cell lymphoma. Here with her daughter , who is guamanian to vietnamese seismic interpreter Patient reports that she has been [...] accompanied by her daughter and girlfriend. As Tajik to Khmer seismic interpreter assisted with the discussion. She had [...] documented as of this encounter Care Teams Pest Control Worker Relationship Specialty Start Date End Date Name, MD Kiel [address] [place], [place] PCP - General Internal Medicine 08/28/15 documented as of this encounter
--- OUTSIDE RECORDS SUMMARY | 2024-04-27 16:09 | XMS_ITS | Encounter Summary ---
Author Organization [employer] Address [address] [facility] 7t [place] [address] Care Team Providers Care Conference Center Coordinator Name Role Phone Name, Kiel BAILEY Primary Care Provider [phone] Katlyn Rodriguez PharmD Unavailable [phone] Reason for Visit * Reason Onset Date Comments Med Refill 04/16/2024 Encounter Details Date Type Department Care Team ([facility] st Contact Info) Description 04/16/2024 Refill [facility] [address] [place], [place] [id number] Name, MD Kiel [address] [place] [address] Chronic pain syndrome Social History Tobacco Use [...] Management [facility] [address] [place] [address] Katlyn Rodriguez, AngieD [address] [place] [address] 07/10/2024 9:00 AM EDT Clinical Support [facility] [address] [place] [phone] Debbie Steiner RN documented as of this [...] documented as of this encounter Care Teams Conference Center Coordinator Relationship Specialty Start Date End Date Name, MD Kiel [address] [place] [address] PCP - General Family Medicine 07/15/15 Katlyn Rodriguez, PharmD [address] [place] [address] Pharmacist Internal Medicine 10/08/22 Marta Ovalle Shank FakerFisher Spear 05/25/23 documented as of this encounter
--- OUTSIDE RECORDS SUMMARY | 2024-04-27 16:09 | XMS_ITS | Encounter Summary ---
Author Organization [employer] Address [address] [facility] 7t [place] [address] Care Team Providers Care Cad Intern Name Role Phone Name, Kiel BAILEY Primary Care Provider [phone] Katlyn Rodriguez PharmD Unavailable [phone] Reason for Visit * Reason Onset Date Comments Reschedule 08/01/2023 Encounter Details Date Type Department Care Team ([facility] st Contact Info) Description 08/01/2023 Telephone [facility] [address] [place] [address] Name, MD Kiel [address] [place] [address] Reschedule Social History Tobacco Use Types Packs/Day [...] 08/01/2023 9:55 AM EDT Triage call with [facility] Clinical Material Handler ID [id number] . Pt reports Covid + test this [...] 08/01/2023 9:04 AM EDT Patient cancelled todays SHELVER RV appt today. Pt's SHELVER appt has been rescheduled for chronic pain [...] AM EDT Tc from pt requesting r/s SHELVER appt, stated is sick and suspect is COVID documented in this encounter Plan of Treatment Upcoming Encounters Date Type Department Care Team (Late st Contact Info) Description 05/07/2024 10:30 AM EDT Medication Management [facility] [address] [place] [address] Katlyn Rodriguez, PharmD [address] [place] [address] 07/10/2024 9:00 AM EDT Clinical Support [facility] [address] [place] [phone] Opal Steiner, RN documented as of this [...] documented as of this encounter Care Teams Cad Intern Relationship Specialty Start Date End Date Name, MD Kiel [address] [place] [address] PCP - General Family Medicine 07/15/15 Jennifer, Katlyn, PharmD [address] [place] [address] Pharmacist Internal Medicine 10/08/22 Marta Ovalle Computer Information Science ProfessorBanking Services Clerk 05/25/23 documented as of this encounter
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
--- OUTSIDE RECORDS SUMMARY | 2024-04-27 16:09 | XMS_ITS | Encounter Summary ---
Author Organization [employer] Address [address] [place] [address] Care Team Providers Care Boardmarker Name Role Phone Name, Kiel BAILEY Primary Care Provider [phone] Katlyn Rodriguez PharmD Unavailable [phone] Encounter Details Date Type Department Care Team ([facility] st Contact Info) Description 02/20/2024 Telephone [facility] [address] [place], [place] [phone] Name, MD Kiel [address] [place] [address] Social History Tobacco Use Types Packs/Day Years [...] Description 05/07/2024 10:30 AM EDT Medication Management [address] [address] Puia, Katlyn, PharmD [address] [place] [phone] 07/10/2024 9:00 AM EDT Clinical Support [address] [address] Opal Steiner, MARINA documented as of this [...] documented as of this encounter Care Teams Boardmarker Relationship Specialty Start Date End Date Name, MD Kiel [address] [place], [place] [phone] PCP - General Family Medicine 07/15/15 Katlyn Rodriguez PharmD [address] [place] [address] Pharmacist Internal Medicine 10/08/22 Marta Ovalle Milker MachineCarbon Printer 05/25/23 documented as of this encounter
--- OUTSIDE RECORDS SUMMARY | 2024-04-27 16:09 | XMS_ITS | Clinical Summary ---
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 Accession Number(s): [id number] ? cc: Cherelle Trujillo; Name,Kiel BAILEY ? Report Number: ?? [id number]: Total DLP = ??650.00 mGy-cm ? CLINICAL [...] DD/ 1509 ? TD/TT: 02/21/24 1509 ? Information Director: ? Procedure Note Donotuseinterpreter, Image - 02/21/[address] [place] [address] [address] Scan Report Signed Patient: Sarita Puga MMR#: [id number] 92 : 1965Acct:[id number] Age/Sex: 58 / FADM Date: 02/21/24 Loc: HO.CT Attending Dr: Cherelle ROMO Ordering Physician: Cherelle Trujillo Date of Service: 02/21/24 Procedure(s): CT kidney stone Accession Number(s): [id number] cc: Cherelle Trujillo; Name,Kiel BAILEY Report Number: [id number]: Total DLP = 650.00 mGy-cm CLINICAL HISTORY: [...] 02/21/24 1510 DD/ 1509 TD/TT: 02/21/24 1509 Information Director: [facility] External Provider IMG CT PROCEDURES Final [...] EST Narrative 02/01/2024 11:04 AM EST ? [facility] ?[address] ?[place] [address] ? Magnetic Resonance Report ? Signed ? Patient: Puga,Shilpi ?MR#: [id number] ?? 92 ? : 1965 ?Acct:[id number] ? Age/Sex: 58 / F ?ADM Date: 12/11/24 ? Loc: HO.MRI ? Attending Dr: Millie Siddiqui DO ? Ordering Physician: Millie Siddiqui DO ?? Date of Service: 02/01/24 ?? Procedure(s): MR lumbar spine wo con ?? Accession Number(s): [id number] ? cc: Millie Siddiqui DO; Name,Kiel BAILEY [...] DD/ 1029 ? TD/TT: 02/01/24 1045 ? Information Director: ? Procedure Note Donotuseinterpreter, Image - 02/01/2024 [place] [address] Magnetic Resonance Report Signed Patient: Sarita Puga MMR#: [id number] 92 : 1965Acct:[id number] Age/Sex: 58 / FADM Date: 02/01/24 Loc: HO.MRI Attending Dr: Millie Siddiqui DO Ordering Physician: Millie Siddiqui DO Date of Service: 02/01/24 Procedure(s): MR lumbar spine wo con Accession Number(s): [id number] cc: Millie Siddiqui DO; Name,Kiel BAILEY EXAMINATION: [...] 02/01/24 1101 DD/ 1029 TD/TT: 02/01/24 1045 Information Director: Millie Siddiqui DO IMG MRI PROCEDURES Edited Re sult - Final * (ABNORMAL) Lipid Panel, Standard (10/25/2023 8:11 AM EDT) Triglycerides 266(H) <150 mg/dL [facility] Comment:Desirable Triglyceri de: less than 150 mg/dLBorderline High Triglyceride 150-199 mg/dLHigh Triglyceride: 200-499 mg/dLVery High Triglyceride: greater than or equal to 5OO mg/dL Cholesterol 206(H) <200 mg/dL [facility] Comment:Desirable Cholestero l: less than 200 mg/dLBorderline High Cholesterol: 200-239 mg/dLHigh Cholesterol: greater than 239 mg/dL LDL Cholesterol Calculated 104(H) <100 mg/dL [facility] Comment:Desirable LDL: less than 100 mg/dLNear Optimal/Above Optimal LDL: 110- 129 mg/dLBorderline High LDL: 130-159 mg/dLHigh LDL: 160-189 mg/dLVery High LDL: greater than or equal to 190 mg/dL HDL Cholesterol 49 >40 mg/dL [facility] Comment:Desirable HDL: great er than 40 mg/dL Note: This HDL assay may give artificially low results in patients with liver disease. 10/25/2023 8:11 AM EDT 10/25/2023 11:22 AM EDT us Kiel Deena BAILEY LAB BLOOD ORDERABLES Final Resul t [facility] [address] [place] [address] [phone] * BI Mammogram Screening Tomosynthesis Bilateral (06/03/2023 8:45 AM EDT) Anatomical Region Laterality Modality Breast Bilateral Mammography 06/03/2023 8:45 AM EDT Narrative 06/30/2023 10:24 PM EDT ? [facility] [place] ? [address] ?[place] [address] ? Mammography Report ? Signed ? Patient: Sarita Puga ?MR#: [id number] ?? 92 ? : 1965 ?Acct:[id number] ? Age/Sex: 57 / F ?ADM Date: //24 ? Loc: HO.MAMMO ? Attending Dr: Kiel Name MD ? Ordering Physician: Name,Kiel MD ?Results: 1Negative ? Date of Service: 06/02/24 ?Follow Up: 1 Year From Orig ?? inal Mammogram ? Procedure(s): MM tomosynthesis screening BI ?? Accession Number(s): [id number] ? cc: Name,Kiel BAILEY ? EXAMINATION: ?? [...] 2220 ? DD/ 0845 ? TD/TT: ? Information Director: ? Procedure Note Jung Bañuelos - 06/30/2023 [facility] [address] [place] [address] Dr[place], [place] [address] Mammography Report Signed Patient: Sarita Puga MMR#: [id number] 92 : 1965Acct:[id number] Age/Sex: 57 / FADM Date: 06/03/23 Loc: MARGAUX Attending Dr: Kiel Shaffer MD Ordering Physician: Kiel Shafferesults: 1Negative Date of Service: 06/03/23Follow Up: 1 Year From Orig ina Mammogram Procedure(s): MM tomosynthesis screening BI Accession Number(s): [id number] cc: Kiel Shaffer MD EXAMINATION: MM SCREENING [...] in OV> 06/30/23 2220 DD/ 0845 TD/TT: Information Director: us Kiel Shaffer MD IM BI PROCEDURES Edited Result - Final * Albumin, Random Urine W/Creatinine (05/26/2023 8:27 AM EDT) Creatinine, Urine 185.88 mg/dL [facility] Microalbumin Urine 23.0 mg/L [facility] Microalbum Creatinine Ratio Ur 12.3 <30 ug/mg cr [facility] Comment:Albumin/Creatinine R atio Reference Ranges: Normal: < 30 ug/mg creatinine Microalbuminuria: 30 - 300 ug/mg creatinineClinical Albuminuria: > 300 ug/mg creatinine Urine (Urine, Random) 05/26/2023 8:27 AM EDT 05/26/2023 11:19 AM EDT us Kiel Shaffer MD LAB URINE ORDERABLES Final Resul t [facility] [address] [place] [address] [phone] * Colonoscopy (07/01/2022 4:37 PM EDT) Colonoscopy Normal Normal Narrative [place] - 07/01/2022 4:37 PM EDT Re[place] 5 [place] [place] Historical Provider MD HEALTH MAINTENANCE Final Result * Diabetes Eye Exam (05/26/2022) Eye Exam Normal Normal us Kiel Name HEALTH MAINTENANCE Final Result from Last 3 Months or Most Recently Relevant to Health Maintenance Insurance [employer] [address] [place] [address] [place] [address] [employer] [place] Care Teams Centrifugal Chiller Technician Relationship Specialty Start Date End Date Name, MD Kiel [address] [place] [address] PCP - General Family Medicine 07/15/15 Katlyn Rodriguez, AngieD [address] [place] [address] Pharmacist Internal Medicine 10/08/22 Marta Ovalle Canoe Inspector FinalVat Overhauler 05/25/23
--- OUTSIDE RECORDS SUMMARY | 2024-04-27 16:09 | XMS_ITS | Encounter Summary ---
Author Organization [employer] Address [address] [facility] 7t [place] [address] Care Team Providers Care Sheet Finisher Name Role Phone Name, Kiel BAILEY Primary Care Provider [phone] Katlyn Rodriguez PharmD Unavailable [phone] Encounter Details Date Type Department Care [...] 05/07/2024 10:30 AM EDT Medication Management [address] [address] Puia, Katlyn, PharmD [address] [place] [address] 07/10/2024 9:00 AM EDT Clinical Support [address] [address] Opal Steiner, MARINA documented as of this [...] documented as of this encounter Care Teams Sheet Finisher Relationship Specialty Start Date End Date Name, MD Kiel [address] [place] [address] PCP - General Family Medicine 07/15/15 Puia, Katlyn, PharmD [address] [place] [address] Pharmacist Internal Medicine 10/08/22 Marta Ovalle AlignerColor Shop Helper 05/25/23 documented as of this encounter
--- OUTSIDE RECORDS SUMMARY | 2024-04-27 16:09 | XMS_ITS | Encounter Summary ---
Author Organization [employer] Address [address] [facility] 7t [place] [address] Care Team Providers Care Table And Desk Finisher Name Role Phone Name, Kiel BAILEY Primary Care Provider [phone] Katlyn Rodriguez PharmD Unavailable [phone] Reason for Visit * Reason Comments Med Refill Encounter Details Date Type Department Care Team ([facility] st Contact Info) Description 09/07/2023 Refill [facility] [address] [place], [place] [id number] Name, MD Kiel [address] [place] [address] Type 2 diabetes mellitus with other specified [...] Description 05/07/2024 10:30 AM EDT Medication Management [address] [address] Puia, Katlyn, PharmD [address] [place] [address] 07/10/2024 9:00 AM EDT Clinical Support [address] [address] Opal Steiner RN documented as of this [...] documented as of this encounter Care Teams Table And Desk Finisher Relationship Specialty Start Date End Date Name, MD Kiel [address] [place] [address] PCP - General Family Medicine 07/15/15 Katlyn Rodriguez PharmD [address] [place] [address] Pharmacist Internal Medicine 10/08/22 Marta Ovalle Client EvaluatorVice Chairman 05/25/23 documented as of this encounter
--- OUTSIDE RECORDS SUMMARY | 2024-04-27 16:09 | XMS_ITS | Encounter Summary ---
Author Organization [employer] Address [address] [facility] 7t [place] [address] Care Team Providers Care Toby Maker Name Role Phone Name, Kiel BAILEY Primary Care Provider [phone] Katlyn Rodriguez PharmD Unavailable [phone] Encounter Details Date Type Department Care Team ([facility] Contact Info) Description 04/06/2024 Orders Only [facility] External Provider, [facility] Social History Tobacco Use Types Packs/Day Years [...] Description 05/07/2024 10:30 AM EDT Medication Management [address] [address] Puia, Katlyn, PharmD [address] [place] [address] 07/10/2024 9:00 AM EDT Clinical Support [address] [address] Opal Steiner RN documented as of this [...] EST documented in this encounter Results * XR Ribs 3 Views Left w/ Chest (04/27/2024 2:28 PM EST) Anatomical Region Laterality Modality Radiographic Diana ging 04/27/2024 2:28 PM EST Narrative 04/27/2024 3:57 PM EST ?[facility] ?[address] ?[place] [address] ?XRay Report ? Signed ? Patient: Sarita Puga ?MR#: [id number] ?? 92 ? : 1965 ?Acct:[id number] ? Age/Sex: 58 / F ?ADM Date: 04/27/24 ? Loc: HO.HHCX ? Attending Dr: Sarita Gonzalez MD ? Ordering Physician: Sarita Baker MD ?? Date of Service: 04/27/24 ?? Procedure(s): XR ribs LT min 3V w CXR1V ?? Accession Number(s): [id number] ? cc: Sarita Baker MD ? EXAMINATION: [...] DD/ 1428 ? TD/TT: 04/27/24 1450 ? Water Resource Consultant: DEBBI ? Procedure Note Donotuseinterpreter, Image - 04/27/[address] [address] XRay Report Signed Patient: Sarita Puga MMR#: [id number] 92 : 1965Acct:[id number] Age/Sex: 58 / FADM Date: 04/27/24 Loc: HO.HHCX Attending Dr: Sarita Gonzalez MD Ordering Physician: Sarita Baker MD Date of Service: 04/27/24 Procedure(s): XR ribs LT min 3V w CXR1V Accession Number(s): [id number] cc: Sarita Baker MD EXAMINATION: XR RIBS, LEFT CLINICAL INFORMATION: [...] MD Signed By: <Electronically signed by Garry Pollokc MD in OV> 04/27/24 1554 DD/ 1428 TD/TT: 04/27/24 1450 Water Resource Consultant: DEBBI us Sarita Gonzalez MD IMG XR PROCEDURES Fin al Result * US DOPPLER EXT UPPER VENOUS LEFT (04/18/2024 3:59 PM EST) Anatomical Region Laterality Modality Body Ultrasound 04/18/2024 3:59 PM EST Narrative 04/18/2024 4:00 PM EST ? [facility] ?[address] ?[place] [address] ? Ultrasound Report ? Signed ? Patient: Puga,Shilpi ?MR#: [id number] ?? 92 ? : 1965 ?Acct:[id number] ? Age/Sex: 58 / F ?ADM Date: 04/18/24 ? Loc: HO.US ? Attending Dr: Victorino Graves MD ? Ordering Physician: VICTORINO GRAVES MD ?? Date of Service: 04/18/24 ?? Procedure(s): US venous duplex UE LT ?? Accession Number(s): [id number] ? cc: VCITORINO GRAVES MD; Kiel Shaffer MD ? CLINICAL HISTORY: [...] DD/ 1559 ? TD/TT: 04/18/24 1559 ? Water Resource Consultant: ? Procedure Note Sarmad, Image - 04/18/[address] [address] Ultrasound Report Signed Patient: Sarita Puga [facility]#: [id number] 92 : 1965Acct:[id number] Age/Sex: 58 / FADM Date: 04/18/24 Loc: HO.US Attending Dr: Victorino Graves MD Ordering Physician: VICTORINO GRAVES MD Date of Service: 04/18/24 Procedure(s): US venous duplex UE LT Accession Number(s): [id number] cc: VICTORINO GRAVES MD; Name,Kiel BAILEY CLINICAL HISTORY: LT ARM [...] 04/18/24 1600 DD/ 1559 TD/TT: 04/18/24 1559 Water Resource Consultant: us Victorino Graves MD IMG US PROCEDURES Final Result * CT Head w/o Contrast (04/06/2024 7:14 PM EST) Anatomical Region Laterality Modality Head, Neck Computed Tomogra phy 04/06/2024 7:14 PM EST Narrative 04/06/2024 7:16 PM EST ? [facility] ?[address] ?[place] [address] ? CT Scan Report ? Signed ? Patient: Sarita Puga ?MR#: [id number] ?? 92 ? : 1965 ?Acct:[id number] ? Age/Sex: 58 / F ?ADM Date: 04/06/24 ? Loc: HO.ED ? Attending Dr: ? Ordering Physician: Page Garcia DO ?? Date of Service: 04/06/24 ?? Procedure(s): CT head/brain wo IV con ?? Accession Number(s): [id number] ? cc: Page Garcia DO; NameKiel MD ? Report Number: ?? [id number]: Total DLP = 1319.00 mGy-cm ? CLINICAL [...] ? DD/ 13 ? TD/TT: 04/06/241913 ? Water Resource Consultant: ? Procedure Note Donotuseinterpreter, Image - 04/06/[address] [place] [address] [address] Scan Report Signed Patient: Sarita Puga MMR#: [id number] 92 : 1965Acct:[id number] Age/Sex: 58 / FADM Date: 04/06/24 Loc: HO.ED Attending Dr: Ordering Physician: Page Garcia DO Date of Service: 04/06/24 Procedure(s): CT head/brain wo IV con Accession Number(s): [id number] cc: Page Garcia DO; Name,Kiel BAILEY Report Number: [id number]: Total DLP = 1319.00 mGy-cm CLINICAL HISTORY: [...] in OV> 04/06/241915 DD/ 13 TD/TT: 04/06/241913 Water Resource Consultant: us [facility] External Provider IMG CT PROCEDURES Edited Result - Final * CT Chest w/ Contrast (04/06/2024 7:12 PM EST) Anatomical Region Laterality Modality Body, Chest Computed Tomogra phy 04/06/2024 7:12 PM EST Narrative 04/06/2024 7:13 PM EST ? [facility] ?[address] ?[place] [address] ? CT Scan Report ? Signed ? Patient: Edd,Sarita Jeronimo ?MR#: [id number] ?? 92 ? : 1965 ?Acct:[id number] ? Age/Sex: 58 / F ?ADM Date: 04/06/24 ? Loc: HO.ED ? Attending Dr: ? Ordering Physician: Page Garcia DO ?? Date of Service: 04/06/24 ?? Procedure(s): CT chest w IV con ?? Accession Number(s): [id number] ? cc: Page Garcia DO; Name,Kiel BAILEY ? Report Number: ?? [id number]: Total DLP = ?0.00 mGy-cm ? CLINICAL HISTORY: chest wall pain after trauma ? CT chest with contrast ? Comparison: CT/ID/SR - CT CHEST W IV CON - [...] ? DD/ 11 ? TD/TT: 04/06/241911 ? Water Resource Consultant: ? Procedure Note Sarmad, Jung - 04/06/[address] [address] CT Scan Report Signed Patient: Sarita Puga MMR#: [id number] 92 : 1965Acct:[id number] Age/Sex: 58 / FADM Date: 04/06/24 Loc: HO.ED Attending Dr: Ordering Physician: Page Garcia DO Date of Service: 04/06/24 Procedure(s): CT chest w IV con Accession Number(s): [id number] cc: Page Garcia DO; Name,Kiel BAILEY Report Number: [id number]: Total DLP = 0.00 mGy-cm CLINICAL HISTORY: chest wall pain after trauma CT chest with contrast Comparison: CT/ID/SR - CT CHEST W IV CON - [...] in OV> 04/06/241911 DD/ 11 TD/TT: 04/06/241911 Water Resource Consultant: [facility] External Provider IMG CT PROCEDURES Edited Result - Final * CT Abdomen Pelvis w/ Contrast (04/06/2024 7:11 PM EST) Anatomical Region Laterality Modality Body, Pelvis, Abdomen Computed T omography 04/06/2024 7:11 PM EST Narrative 04/06/2024 7:13 PM EST ? [facility] ?[address] ?[place] [address] ? CT Scan Report ? Signed ? Patient: Puga,Shilpi ?MR#: [id number] ?? 92 ? : 1965 ?Acct:[id number] ? Age/Sex: 58 / F ?ADM Date: /14/25 ? Loc: HO.ED ? Attending Dr: ? Ordering Physician: Page Garcia DO ?? Date of Service: 04/06/24 ?? Procedure(s): CT abdomen pelvis w IV con ?? Accession Number(s): [id number] ? cc: Page Garcia DO; Name,Kiel BAILEY ? Report Number: ?? [id number]: Total DLP = 2421.00 mGy-cm ? CLINICAL [...] ? DD/ 10 ? TD/TT: 04/06/241910 ? Water Resource Consultant: ? Procedure Note Jung Bañuelos - 04/06/[address] [address] CT Scan Report Signed Patient: Sarita Puga [facility]#: [id number] 92 : 1965Acct:[id number] Age/Sex: 58 / FADM Date: 04/06/24 Loc: HO.ED Attending Dr: Ordering Physician: Page Garcia DO Date of Service: 04/06/24 Procedure(s): CT abdomen pelvis w IV con Accession Number(s): [id number] cc: Page Garcia DO; Name,Kiel BAILEY Report Number: [id number]: Total DLP = 2421.00 mGy-cm CLINICAL HISTORY: [...] in OV> 04/06/241911 DD/ 10 TD/TT: 04/06/241910 Water Resource Consultant: [facility] External Provider IMG CT PROCEDURES Edited Result - Final * CT Cervical Spine w/o Contrast (04/06/2024 7:02 PM EST) Anatomical Region Laterality Modality Spine, C-spine Computed Tomogra phy 04/06/2024 7:02 PM EST Narrative 04/06/2024 7:04 PM EST ? [facility] ?[address] ?[place] [address] ? CT Scan Report ? Signed ? Patient: Puga,Shilpi ?MR#: [id number] ?? 92 ? : 1965 ?Acct:[id number] ? Age/Sex: 58 / F ?ADM Date: 02/14/25 ? Loc: HO.ED ? Attending Dr: ? Ordering Physician: Page Garcia DO ?? Date of Service: 04/06/24 ?? Procedure(s): CT cervical spine wo IV con ?? Accession Number(s): [id number] ? cc: Page Garcia DO; Name,Kiel BAILEY ? Report Number: ?? [id number]: Total DLP = ?0.00 mGy-cm ? CLINICAL [...] 04/06/24 1903 ? DD/ 1902 ? TD/TT: 04/06/241901 ? Water Resource Consultant: ? Procedure Note Donhankter, Image - 04/06/[address] [place] [address] [address] Scan Report Signed Patient: Sarita Puga MMR#: [id number] 92 : 1965Acct:[id number] Age/Sex: 58 / FADM Date: 04/06/24 Loc: HO.ED Attending Dr: Ordering Physician: Page Garcia DO Date of Service: 04/06/24 Procedure(s): CT cervical spine wo IV con Accession Number(s): [id number] cc: Page Garcia DO; Name,Kiel BAILEY Report Number: [id number]: Total DLP = 0.00 mGy-cm CLINICAL HISTORY: [...] in OV> 04/06/241902 DD/ 01 TD/TT: 04/06/241901 Water Resource Consultant: [facility] External Provider IMG CT PROCEDURES Edited Result - Final * XR Humerus Left (04/06/2024 2:32 PM EST) Anatomical Region Laterality Modality Upper Extremities, Humerus Left Radio graphic Imaging 04/06/2024 2:32 PM EST Narrative 04/06/2024 3:02 PM EST ? [facility] ?[address] ?[place] [address] ?XRay Report ? Signed ? Patient: Sarita Puga ?MR#: [id number] ?? 92 ? : 1965 ?Acct:[id number] ? Age/Sex: 58 / F ?ADM Date: 04/06/24 ? Loc: HO.ED ? Attending Dr: ? Ordering Physician: Page Garcia DO ?? Date of Service: 04/06/24 ?? Procedure(s): XR humerus LT ?? Accession Number(s): [id number] ? cc: Page Garcia DO; Name,Kiel BAILEY [...] DD/ 1432 ? TD/TT: 04/06/24 1446 ? Water Resource Consultant: ? Procedure Note Jung Bañuelos - 04/06/[address] [address] XRay Report Signed Patient: Sarita Puga MMR#: [id number] 92 : 1965Acct:[id number] Age/Sex: 58 / FADM Date: 04/06/24 Loc: .ED Attending Dr: Ordering Physician: Page Garcia DO Date of Service: 04/06/24 Procedure(s): XR humerus LT Accession Number(s): [id number] cc: Page Garcia DO; Name,Kiel BAILEY EXAMINATION: [...] 04/06/24 1459 DD/ 1432 TD/TT: 04/06/24 1446 Water Resource Consultant: [facility] External Provider IMG XR PROCEDURES Edited Result - Final documented in this encounter Visit Diagnoses Not on filedocumented in this encounter Additional Health Concerns Assessment Noted Time PHQ-9 Depression Total Score: 4 09/02/19 24 10:30 AM EDT documented as of this encounter Care Teams Toby Maker Relationship Specialty Start Date End Date Name, MD Kiel [address] [place] [address] PCP - General Family Medicine 07/15/15 Katlyn Rodriguez PharmD [address] [place] [address] Pharmacist Internal Medicine 10/08/22 Marta Ovalle Wood Die MakerManual Training Teacher 05/25/23 documented as of this encounter
--- OUTSIDE RECORDS SUMMARY | 2024-04-27 16:09 | XMS_ITS | Encounter Summary ---
Author Organization [employer] Address [address] [place] [address] Care Team Providers Care Tank Farm Attendant Name Role Phone Name, Kiel BAILEY Primary Care Provider [phone] Katlyn Rodriguez PharmD Unavailable [phone] Encounter Details Date Type Department Care Team ([facility] st Contact Info) Description 03/30/2024 12:00 PM EST Immunization [facility] [address] [place] [address] Mary Light LPN Encounter for immunization (Primary [...] bite on 03/25/2024. Pt was referred to [facility] who directed her to [facility] to obtain vaccine Pt stated that the dog was not up to date on rabies vaccine so was directed to [facility] to be evaluated for rabies post exposure prophylaxis. Pt agreed Pt advised that there may be minor redness/swelling/pain at the injection site. Pt educated as to potential side effects of Tdap vaccine that could include mild fever/headache/ fatigue/nausea vomiting/ diarrhea/stomachaches. Pt expressed understanding that [facility] recommends remaining 15 minutes post- vaccination for observation. documented in this encounter Plan of Treatment Upcoming Encounters Date Type Department Care Team (Late st Contact Info) Description 05/07/2024 10:30 AM EDT Medication Management [facility] [address] [place] [address] Katyln Rodriguez, PharmD [address] [place] [address] 07/10/2024 9:00 AM EDT Clinical Support [facility] [address] [place] [address] Opal Steiner, RN documented as of this [...] documented as of this encounter Care Teams Tank Farm Attendant Relationship Specialty Start Date End Date Name, MD Kiel [address] [place] [address] PCP - General Family Medicine 07/15/15 Puia, Katlyn, PharmD [address] [place] [address] Pharmacist Internal Medicine 10/08/22 Marta Ovalle Access Service RepresentativeCertified Alcohol Counselor 05/25/23 documented as of this encounter
--- OUTSIDE RECORDS SUMMARY | 2024-04-27 16:09 | XMS_ITS | Encounter Summary ---
Author Organization [employer] Address [address] 7t [place] [address] Care Team Providers Care Data Scientist Name Role Phone Name, Kiel BAILEY Primary Care Provider [phone] Katlyn Rodriguez PharmD Unavailable [phone] Reason for Visit * Reason Onset Date Comments Recommend MATH AND SCIENCE INSTRUCTOR Tier 2 04/10/2024 Encounter Details Date Type Department Care Team ([facility] st Contact Info) Description 04/10/2024 Telephone [facility] MED[facility]INE [address] [place] [address] Opal Steiner, MARINA Recommend MATH AND SCIENCE INSTRUCTOR Tier 2 Social History Tobacco Use Types [...] RN - 04/10/2024 7:25 AM EST What MATH AND SCIENCE INSTRUCTOR Tier would you like this patient to be? I recommend Tier 2, please let me know if you agree or would rather patient be in another MATH AND SCIENCE INSTRUCTOR Tier. Tier 1 = HIGH RISK, Monthly MATH AND SCIENCE INSTRUCTOR visits Tier 2 = MODerate RISK, Q3 Month visits Tier 3 = LOW RISK = Q4-6 month visits documented in this encounter Plan of Treatment Upcoming Encounters Date Type Department Care Team (Late st Contact Info) Description 05/07/2024 10:30 AM EDT Medication Management [facility] [address] [place] [address] Katlyn Rodriguez PharmD [address] [place] [address] 07/10/2024 9:00 AM EDT Clinical Support [facility] [address] [place] [address] Opal Steiner, RN documented as of this [...] documented as of this encounter Care Teams Data Scientist Relationship Specialty Start Date End Date Name, MD Kiel [address] [place] [address] PCP - General Family Medicine 07/15/15 Katlyn Rodriguez, PharmD [address] [place] [address] Pharmacist Internal Medicine 10/08/22 Marta Ovalle Nursing FacultyLab Tester 05/25/23 documented as of this encounter
--- OUTSIDE RECORDS SUMMARY | 2024-04-27 16:09 | XMS_ITS | Encounter Summary ---
Author Organization [employer] Address [address] [facility] 7t [place] [address] Care Team Providers Care Propulsion Systems Engineer Name Role Phone Name, Kiel BAILEY Primary Care Provider [phone] Katlyn Rodriguez PharmD Unavailable [phone] Reason for Visit * Reason Onset Date Comments Medication Problem 08/30/2023 Encounter Details Date Type Department Care Team ([facility] Contact Info) Description 08/30/2023 Telephone [facility] MEDICINE [address] [place], [place] [phone] Name, MD Kiel [address] [place] [address] Medication Problem Social History Tobacco Use Types [...] Description 05/07/2024 10:30 AM EDT Medication Management [address] [address] Katlyn Rodriguez, PharmD [address] [place] [address] 07/10/2024 9:00 AM EDT Clinical Support [facility] [address] [place] [address] Opal Steiner, MARINA documented as of this [...] documented as of this encounter Care Teams Propulsion Systems Engineer Relationship Specialty Start Date End Date Name, MD Kiel [address] [place] [address] PCP - General Family Medicine 07/15/15 Katlyn Rodriguez, PharmD [address] [place] [address] Pharmacist Internal Medicine 10/08/22 Marta Ovalle InterpreterAudit Machine Operator 05/25/23 documented as of this encounter
--- OUTSIDE RECORDS SUMMARY | 2024-04-27 16:09 | XMS_ITS | Encounter Summary ---
Author Organization [employer] Address [address] [facility] 7t [place] [address] Care Team Providers Care Building Tech Name Role Phone Name, Kiel BAILEY Primary Care Provider [phone] Katlyn Rodriguez PharmD Unavailable [phone] Reason for Visit * Reason Comments Med Refill Encounter Details Date Type Department Care Team ([facility] st Contact Info) Description 04/15/2023 Refill [facility] MED[facility]INE 230 [place] [address] Yaneth Restrepo FNP 230 [place] [address] Diabetes mellitus type 2 in obese (CMS/HCC) [...] 05/07/2024 10:30 AM EDT Medication Management [address] [address] Puia, Katlyn, PharmD [address] [place] [address] 07/10/2024 9:00 AM EDT Clinical Support [address] [address] Opal Steiner RN documented as of this [...] documented as of this encounter Care Teams Building Tech Relationship Specialty Start Date End Date Name, MD Kiel 230 [place] [address] PCP - General Family Medicine 07/15/15 Katlyn Rodriguez PharmD 230 [place] [address] Pharmacist Internal Medicine 10/08/22 Marta Ovalle Toxicology SupervisorBlower Room Attendant 05/25/23 documented as of this encounter
--- OUTSIDE RECORDS SUMMARY | 2024-04-27 16:09 | XMS_ITS | Encounter Summary ---
Author Organization [facility] [facility] Address [address] [place] [address] 7t [place] [address] Care Team Providers Care Director Of Medical Education Name Role Phone Name, Kiel BAILEY Primary Care Provider [phone] Katlyn Rodriguez PharmD Unavailable [phone] Encounter Details Date Type Department Care Team ([facility] Contact Info) Description 08/26/2022 Orders Only [facility] MEDICINE [address] [place] [address] Leia Gonzales LPN Social History Tobacco [...] Encounters Date Type Department Care Team ([facility] Contact Info) Description 05/07/2024 10:30 AM EDT Medication Management [facility] MEDICINE [address] [place] [address] [phone] Katlyn Rodriguez PharmD [facility] [place] [address] 07/10/2024 9:00 AM EDT Clinical Support [facility] [place] [address] Opal Steiner, RN documented as of this encounter Visit Diagnoses Not on filedocumented in this encounter Additional Health Concerns Assessment Noted Time PHQ-9 Depression Total Score: 7 07/15/19 23 2:39 PM EDT documented as of this encounter Care Teams Director Of Medical Education Relationship Specialty Start Date End Date [place] [address] PCP - General Family Medicine 07/15/15 Katlyn Rodriguez, AngieD [facility] [place] [address] Pharmacist Internal Medicine 10/08/22 Marta Ovalle Eyelet RiveterInspector Hairspring 05/25/23 documented as of this encounter
--- OUTSIDE RECORDS SUMMARY | 2024-04-27 16:09 | XMS_ITS | Encounter Summary ---
Author Organization [facility] Address [address] [place] [address] 7t [place] [address] Care Team Providers Care Pilates Instructor Name Role Phone Name, Kiel BAILEY Primary Care Provider [phone] Katlyn Rodriguez PharmD Unavailable [phone] Encounter Details Date Type Department Care Team ([facility] Contact Info) Description 10/29/2022 Abstract [facility] MEDICINE [address] [place] [phone] Name, MD Kiel [address] [place] [address] Social History Tobacco Use Types Packs/Day Years [...] Encounters Date Type Department Care Team ([facility] Contact Info) Description 05/07/2024 10:30 AM EDT Medication Management [facility] MEDICINE [address] [place] [phone] Katlyn Rodriguez, PharmD 230 [place], [place] [phone] 07/10/2024 9:00 AM EDT Clinical Support [facility] MEDICINE [address] [place] [address] Opal Steiner, RN documented as of this [...] documented as of this encounter Care Teams Pilates Instructor Relationship Specialty Start Date End Date Name, [place] [address] PCP - General Family Medicine 07/15/15 Katlyn Rodriguez, PharmD [address] [place] [address] Pharmacist Internal Medicine 10/08/22 Marta Ovalle Denture PackerHematology Specialist 05/25/23 documented as of this encounter
--- OUTSIDE RECORDS SUMMARY | 2024-04-27 16:10 | XMS_ITS | Encounter Summary ---
Author Organization [facility] Address [address] [place] [address] 7t [place] [address] Care Team Providers Care Engineering Team Supervisor Name Role Phone Name, Kiel BAILEY Primary Care Provider [phone] Katlyn Rodriguez PharmD Unavailable Reason for Visit * Reason Comments Med Refill Encounter Details Date Type Department Care Team (Late Contact Info) Description 04/25/2022 Refill [facility] MEDICINE [address] [place] [address] Name, MD Kiel [address] [place] [address] Diabetes mellitus type 2 in obese (CMS/HCC) [...] Description 05/07/2024 10:30 AM EDT Medication Management [facility] [address] [place] [address] Katlyn Rodriguez PharmD 230 [place] [address] 07/10/2024 9:00 AM EDT Clinical Support [address] [address] Opal Steiner RN documented as of this encounter Visit Diagnoses Diagnosis Diabetes mellitus type 2 in obese- Primary Type II or unspecified type diabetes mellitus without mention of complication, not stated as uncontrolled documented in this encounter Care Teams Engineering Team Supervisor Relationship Specialty Start Date End Date Name, [place] [address] PCP - General Family Medicine 07/15/15 Katlyn Rodriguez PharmD [address] [place] [address] Pharmacist Internal Medicine 10/08/22 Marta Ovalle Meter And Regulator Shop SupervisorEd Special Education Teacher 05/25/23 documented as of this encounter
--- OUTSIDE RECORDS SUMMARY | 2024-04-27 16:10 | XMS_ITS | Clinical Summary ---
Author Organization [facility] Address [address] [place] [address] Care Team Providers Care Geotechnical Department Manager Name Role Phone Name, Kiel BAILEY Primary Care Provider [phone] Allergies Active Allergy Reactions Criticality Noted Date [...] age to complete this topic Care Teams Geotechnical Department Manager Relationship Specialty Start Date End Date Name, MD Kiel [address] [facility] [place] [address] PCP - General Internal Medicine 04/17/18
--- OUTSIDE RECORDS SUMMARY | 2024-04-27 16:10 | XMS_ITS | Encounter Summary ---
Author Organization [employer] [facility] Address [address] [place] [address] 7t [place] [address] Care Team Providers Care Router Operator Radial Name Role Phone Name, Kiel BAILEY Primary Care Provider [phone] Katlyn Rodriguez PharmD Unavailable Reason for Visit * Reason Comments Med Refill Encounter Details Date Type Department Care Team (Late st Contact Info) Description 07/02/2022 Refill [facility] MEDICINE [address] [place] [address] Name, MD Kiel [address] [place] [address] Chronic pain syndrome Social History Tobacco Use [...] Upcoming Encounters Date Type Department Care Team ([facility] Contact Info) Description 05/07/2024 10:30 AM EDT Medication Management [facility] MEDICINE [address] [place] [address] Katlyn Rodriguez PharmD 230 [place] [address] 07/10/2024 9:00 AM EDT Clinical Support [facility]ICINE [address] [place], [place] [phone] Opal Steiner RN documented as of this encounter Visit Diagnoses Diagnosis Chronic pain syndrome documented in this encounter Care Teams Router Operator Radial Relationship Specialty Start Date End Date Name, MD Kiel [address] [place] [address] PCP - General Family Medicine 07/15/15 Katlyn Rodriguez PharmD [address] [place] [address] Pharmacist Internal Medicine 10/08/22 Marta Ovalle Compounder FlavoringsSecurity Installation Technician 05/25/23 documented as of this encounter
--- OUTSIDE RECORDS SUMMARY | 2024-04-27 16:10 | XMS_ITS | Encounter Summary ---
Author Organization [facility] Address [address] [facility] [address] 7t [place] [address] Care Team Providers Care Ac/Dc Rewinder Name Role Phone Name, Kiel BAILEY Primary Care Provider [phone] Katlyn Rodriguez PharmD Unavailable [phone] Reason for Visit * Reason Onset Date Comments Referral 04/06/2024 Patient walked i n stating the referral pcp sent on 03/28/2024 needs to be changed to physical therapy not chiropractic. Patient said she went to the office [address] [place] [address] and they said it needs to be changed to physical therapy. Encounter Details Date Type Department Care Team (Late st Contact Info) Description 04/06/2024 Telephone [facility] MEDICINE 230 [place], [place] [phone] Name, MD Kiel 230 [place], [place] [phone] Referral (Patient walked in stating the referral pcp sent on 03/28/2024 needs to be changed to physical therapy not chiropractic. Patient said she went to the office [address] [place] [address] and they said it needs to be [...] she went to the office [address] [facility] and they said it needs to be changed to physical therapy. documented in this encounter Plan of Treatment Upcoming Encounters Date Type Department Care Team ([facility] st Contact Info) Description 05/07/2024 10:30 AM EDT Medication Management [facility] MEDICINE 230 [place] [address] Katlyn Rodriguez, PharmD [address] [place] [address] 07/10/2024 9:00 AM EDT Clinical Support [facility] MEDICINE [address] [place] [address] Opal Steiner, MARINA documented as of this [...] documented as of this encounter Care Teams Ac/Dc Rewinder Relationship Specialty Start Date End Date Name, MD Kiel [address] [place] [address] PCP - General Family Medicine 07/15/15 Puia, Katlyn, PharmD [address] [place] [address] Pharmacist Internal Medicine 10/08/22 Marta Ovalle Webmethods ConsultantSolar Energy Engineer 05/25/23 documented as of this encounter
--- OUTSIDE RECORDS SUMMARY | 2024-04-27 16:10 | XMS_ITS | Encounter Summary ---
Author Organization [employer] Address [address] [facility] 7t [place] [address] Care Team Providers Care Developer Automatic Name Role Phone Name, Kiel BAILEY Primary Care Provider [phone] Katlyn Rodriguez PharmD Unavailable [phone] Encounter Details Date Type Department Care Team (Latest Contact Info) Description 04/21/2024 Travel Social History Tobacco Use Types Packs/Day [...] Description 05/07/2024 10:30 AM EDT Medication Management [address] [address] Puia, Katlyn, PharmD [address] [place] [address] 07/10/2024 9:00 AM EDT Clinical Support [address] [address] Opal Steiner, MARINA documented as of this [...] documented as of this encounter Care Teams Developer Automatic Relationship Specialty Start Date End Date Name, MD Kiel [address] [place] [address] PCP - General Family Medicine 07/15/15 Puia, Katlyn, PharmD 230 [place] [address] Pharmacist Internal Medicine 10/08/22 Marta Ovalle Oven HeaterCement Railroad Car Loader 05/25/23 documented as of this encounter
--- OUTSIDE RECORDS SUMMARY | 2024-04-27 16:10 | XMS_ITS | Encounter Summary ---
Author Organization [employer] Address [address] [facility] 7t [place] [address] Care Team Providers Care Platen Press Feeder Name Role Phone Name, Kiel BAILEY Primary Care Provider [phone] Katlyn Rodriguez PharmD Unavailable [phone] Reason for Visit * Reason Onset Date Comments Appointment Request 02/29/2024 Encounter Details Date Type Department Care Team ([facility] Contact Info) Description 02/29/2024 Telephone [facility] MEDICINE [address] [place], [place] [phone] Name, MD Kiel [address] [place] [address] Appointment Request Social History Tobacco Use Types [...] different date and time. Pt does speak taiwanese so you will need an translator interpreter. documented in this encounter Plan of Treatment Upcoming Encounters Date Type Department Care Team (Late st Contact Info) Description 05/07/2024 10:30 AM EDT Medication Management [address] [address] Katlyn Rodriguez, PharmD [address] [place] [address] 07/10/2024 9:00 AM EDT Clinical Support [address] [address] Opal Steiner, MARINA documented as of this [...] documented as of this encounter Care Teams Platen Press Feeder Relationship Specialty Start Date End Date Name, MD Kiel 230 [place] [address] PCP - General Family Medicine 07/15/15 Katlyn Rodriguez, PharmD 230 [place] [address] Pharmacist Internal Medicine 10/08/22 Marta Ovalle Pipe Stress EngineerEnterprise Infrastructure Architect 05/25/23 documented as of this encounter
--- OUTSIDE RECORDS SUMMARY | 2024-04-27 16:10 | XMS_ITS | Encounter Summary ---
Author Organization [facility] Address [address] [place] [address] 7t [place] [address] Care Team Providers Care Jailer Chief Name Role Phone Name, Kiel BAILEY Primary Care Provider [phone] Katlyn Rodriguez PharmD Unavailable Reason for Visit * Reason Comments Med Refill Encounter Details Date Type Department Care Team ([facility] Contact Info) Description 07/16/2022 Refill [facility] MEDICINE [address] [place] [address] Name, MD Kiel [address] [place] [address] Chronic pain syndrome Social History Tobacco Use [...] Upcoming Encounters Date Type Department Care Team ([facility] st Contact Info) Description 05/07/2024 10:30 AM EDT Medication Management [address] [address] Katlyn Rodriguez PharmD [address] [place] [address] 07/10/2024 9:00 AM EDT Clinical Support [address] [address] Opal Steiner, RN documented as of this encounter Visit Diagnoses Diagnosis Chronic pain syndrome documented in this encounter Additional Health Concerns Assessment Noted Time PHQ-9 Depression Total Score: 7 07/15/19 2:39 PM EDT documented as of this encounter Care Teams Jailer Chief Relationship Specialty Start Date End Date Name, MD Kiel [address] [place] [address] PCP - General Family Medicine 07/15/15 Katlyn Rodriguez PharmD [address] [place] [address] Pharmacist Internal Medicine 10/08/22 Marta Ovalle Body Shop EstimatorMachine Hoop Maker Helper 05/25/23 documented as of this encounter
--- OUTSIDE RECORDS SUMMARY | 2024-04-27 16:10 | XMS_ITS | Encounter Summary ---
Author Organization [employer] [facility] Address [address] [place] [address] 7t [place] [address] Care Team Providers Care Machine Cell Tuber Name Role Phone Name, Kiel BAILEY Primary Care Provider [phone] Katlyn Rodriguez PharmD Unavailable [phone] Encounter Details Date Type Department Care Team ([facility] Contact Info) Description 07/01/2022 Abstract [facility] MEDICINE [address] [place] [address] Name, MD Kiel [address] [place] [address] Social History Tobacco Use Types Packs/Day Years [...] Upcoming Encounters Date Type Department Care Team ([facility] Contact Info) Description 05/07/2024 10:30 AM EDT Medication Management [facility] MEDICINE [address] [place] [address] Katlyn Rodriguez PharmD [address] [place] [address] 07/10/2024 9:00 AM EDT Clinical Support [facility] MEDICINE [address] [place] [address] Opal Steiner RN documented as of this encounter Procedures Procedure Name Priority Date/Time Associated Diagnosis Comments COLONOSCOPY Routine 07/01/2022 4:37 PM EDT documented in this encounter Results * Colonoscopy (07/01/2022 4:37 PM EDT) Colonoscopy Normal Normal Narrative Emely Devine - 07/01/2022 4:37 PM EDT Recommended 5 year follow [place] ([facility] Historical Provider HEALTH MAINTENANCE Final Result documented in this encounter Visit Diagnoses Not on filedocumented in this encounter Care Teams Machine Cell Tuber Relationship Specialty Start Date End Date Name, MD Kiel [address] [place] [address] PCP - General Family Medicine 07/15/15 Katlyn Rodriguez, Bin [address] [place] [address] Pharmacist Internal Medicine 10/08/22 Marta Ovalle Security Patrol DriverPigment Processor 05/25/23 documented as of this encounter
--- OUTSIDE RECORDS SUMMARY | 2024-04-27 16:10 | XMS_ITS | Encounter Summary ---
Author Organization [employer] Address [address] [facility] 7t [place] [address] Care Team Providers Care Inspector Mechanical Name Role Phone Name, Kiel BAILEY Primary Care Provider [phone] Katlyn Rodriguez PharmD Unavailable [phone] Reason for Visit * Reason Onset Date Comments Durable Medical Equipment 01/24/2023 Encounter Details Date Type Department Care Team ([facility] st Contact Info) Description 01/24/2023 Telephone [facility] MEDICINE [address] [place] [address] Name, MD Kiel [address] [place] [address] Durable Medical Equipment Social History Tobacco Use [...] to errol. Any questions, contact pt at [phone] documented in this encounter Plan of Treatment Upcoming Encounters Date Type Department Care Team (Late st Contact Info) Description 05/07/2024 10:30 AM EDT Medication Management [address] [address] Puia, Katlyn, PharmD [address] [place] [address] 07/10/2024 9:00 AM EDT Clinical Support [facility] MEDICINE [address] [place] [address] Opal Steiner, RN documented as of this [...] as of this encounter Care Teams Inspector Mechanical Relationship Specialty Start Date End Date Name, MD Kiel 230 [place] [address] PCP - General Family Medicine 07/15/15 Katlyn Rodriguez PharmD 230 [place] [address] Pharmacist Internal Medicine 10/08/22 Marta Ovalle Manager VanThermometer Production Worker 05/25/23 documented as of this encounter
--- OUTSIDE RECORDS SUMMARY | 2024-04-27 16:10 | XMS_ITS | Encounter Summary ---
Author Organization [employer] Address [address] [facility] 7t [place] [address] Care Team Providers Care Siphon Operator Name Role Phone Name, Kiel BAILEY Primary Care Provider [phone] Katlyn Rodriguez PharmD Unavailable [phone] Encounter Details Date Type Department Care Team ([facility] Contact Info) Description 03/12/2022 Orders Only [facility] [address] [place], [place] [phone] Millie Sawant LPN Social History Tobacco Use [...] Upcoming Encounters Date Type Department Care Team ([facility] Contact Info) Description 05/07/2024 10:30 AM EDT Medication Management [facility] MEDICINE [address] [place], [place] [phone] Katlyn Rodriguez, PharmD 230 [place], [place] [phone] 07/10/2024 9:00 AM EDT Clinical Support [facility] MEDICINE [address] [place] [address] Opal Steiner RN documented as of this encounter Visit Diagnoses Not on filedocumented in this encounter Care Teams Siphon Operator Relationship Specialty Start Date End Date Name, MD Kiel 230 [place] [address] PCP - General Family Medicine 07/15/15 Katlyn Rodriguez PharmD 230 [place] [address] Pharmacist Internal Medicine 10/08/22 Marta Ovalle Refrigeration PersonClient Relationship Executive 05/25/23 documented as of this encounter
--- OUTSIDE RECORDS SUMMARY | 2024-04-27 16:10 | XMS_ITS | Encounter Summary ---
Author Organization [employer] [facility] Address [address] [place] [address] 7t [place] [address] Care Team Providers Care Md Do Resident Urgent Care Name Role Phone Name, Kiel BAILEY Primary Care Provider [phone] Katlyn Rodriguez PharmD Unavailable [phone] Reason for Visit * Reason Comments Med Refill Encounter Details Date Type Department Care Team (Late st Contact Info) Description 06/28/2022 Refill [facility] MEDICINE [address] [place] [phone] Name, MD Kiel [address] [place] [phone] Chronic pain syndrome Social History Tobacco Use [...] Upcoming Encounters Date Type Department Care Team ([facility] Contact Info) Description 05/07/2024 10:30 AM EDT Medication Management [facility] MEDICINE [address] [place] [address] Katlyn Rodriguez PharmD [address] [place] [address] 07/10/2024 9:00 AM EDT Clinical Support [facility] MEDICINE [address] [place], [place] [phone] Opal Steiner RN documented as of this encounter Visit Diagnoses Diagnosis Chronic pain syndrome documented in this encounter Care Teams Md Do Resident Urgent Care Relationship Specialty Start Date End Date Name, MD Kiel [address] [place] [address] PCP - General Family Medicine 07/15/15 Katlyn Rodriguez PharmD [address] [place] [address] Pharmacist Internal Medicine 10/08/22 Marta Ovalle Lab SpecialistHose Inspector And Patcher 05/25/23 documented as of this encounter
--- OUTSIDE RECORDS SUMMARY | 2024-04-27 16:10 | XMS_ITS | Encounter Summary ---
Author Organization [facility] Address [address] [place] [address] 7t [place] [address] Care Team Providers Care Cheese Wrapper Name Role Phone Name, Kiel BAILEY Primary Care Provider [phone] Katlyn Rodriguez PharmD Unavailable [phone] Encounter Details Date Type Department Care Team ([facility] Contact Info) Description 07/01/[address] [facility] MEDICINE [address] [place] [address] Name, MD Kiel [address] [place] [address] Social History Tobacco Use Types Packs/Day Years [...] Upcoming Encounters Date Type Department Care Team ([facility] Contact Info) Description 05/07/2024 10:30 AM EDT Medication Management [facility] MEDICINE [address] [place] [address] Katlyn Rodriguez, AngieD [address] [place] [address] 07/10/2024 9:00 AM EDT Clinical Support [facility] MEDICINE [address] [place] [address] Opal Steiner, RN documented as of this encounter Visit Diagnoses Not on filedocumented in this encounter Care Teams Cheese Wrapper Relationship Specialty Start Date End Date Name, MD Kiel [address] [place] [address] PCP - General Family Medicine 07/15/15 Katlyn Rodriguez, AngieD [address] [place] [address] Pharmacist Internal Medicine 10/08/22 Marta Ovalle Property DeveloperCommercial Center Manager 05/25/23 documented as of this encounter
--- OUTSIDE RECORDS SUMMARY | 2024-04-27 16:10 | XMS_ITS | Encounter Summary ---
Author Organization [employer] [facility] Address [address] [facility] 7t [place] [address] Care Team Providers Care Physician Underwriter Name Role Phone Name, Kiel BAILEY Primary Care Provider [phone] Katlyn Rodriguez PharmD Unavailable [phone] Encounter Details Date Type Department Care Team ([facility] Contact Info) Description 02/23/2022 Orders Only [facility] [address] [place] [address] Name, MD Kiel 230 [place] [address] Social History Tobacco Use Types Packs/Day Years [...] Upcoming Encounters Date Type Department Care Team ([facility] Contact Info) Description 05/07/2024 10:30 AM EDT Medication Management [facility] MEDICINE [address] [place] [address] PuiaKatlyn, PharmD [address] [place] [address] 07/10/2024 9:00 AM EDT Clinical Support [facility] MEDICINE 230 [place], [place] [phone] Opal Steiner, RN documented as of this encounter Visit Diagnoses Not on filedocumented in this encounter Care Teams Physician Underwriter Relationship Specialty Start Date End Date Name, MD Kiel [address] [place], [place] [phone] PCP - General Family Medicine 07/15/15 Katlyn Rodriguez PharmD [address] [place] [address] Pharmacist Internal Medicine 10/08/22 Marta Ovalle Truck CatererThermocouple Tester 05/25/23 documented as of this encounter
--- OUTSIDE RECORDS SUMMARY | 2024-04-27 16:10 | XMS_ITS | Encounter Summary ---
Author Organization [employer] Address [address] [facility] 7t [place] [address] Care Team Providers Care Tread Builder Name Role Phone Name, Kiel BAILEY Primary Care Provider [phone] Katlyn Rodriguez PharmD Unavailable [phone] Reason for Visit * Reason Onset Date Comments [facility] 04[facility] Disposable unde rpad / chux pad largeGloves N-steril per (bx) Encounter Details Date Type Department Care Team (Late st Contact Info) Description 04/02/2024 Telephone [facility] MEDICINE [address] [place] [address] Name, MD Kiel [address] [place] [address] [facility] (Disposable underpad / chux pad [...] signed by the PCP and faxed to [employer]. Form has been sent in for scanning. * Telephone Encounter - Elijah Troy [place] - 04/02/2024 10:39 AM EST Received medical necessity form from [employer] for Disposable underpad / chux pad large, Gloves N-steril per (bx). Form has been filled out and placed on PCP's desk for signature. documented in this encounter Plan of Treatment Upcoming Encounters Date Type Department Care Team (Late st Contact Info) Description 05/07/2024 10:30 AM EDT Medication Management [facility] MEDICINE [address] [place] [address] Puia, Katlyn, PharmD [address] [place] [address] 07/10/2024 9:00 AM EDT Clinical Support [facility] MEDICINE [address] [place] [address] Opal Steiner, RN documented as of this [...] documented as of this encounter Care Teams Tread Builder Relationship Specialty Start Date End Date Name, MD Kiel [address] [place] [address] PCP - General Family Medicine 07/15/15 Puia, Katlyn, PharmD [address] [place] [phone] Pharmacist Internal Medicine 10/08/22 Marta Ovalle Cigar BinderKeypunch Operators Supervisor 05/25/23 documented as of this encounter
--- OUTSIDE RECORDS SUMMARY | 2024-04-27 16:10 | XMS_ITS | Encounter Summary ---
Author Organization [employer] Address [address] [facility] 7t [place] [address] Care Team Providers Care Day Care Worker Name Role Phone Name, Kiel BAILEY Primary Care Provider [phone] Katlyn Rodriguez PharmD Unavailable [phone] Reason for Visit * Reason Onset Date Comments Durable Medical Equipment 12/06/2022 Encounter Details Date Type Department Care Team ([facility] st Contact Info) Description 12/06/2022 Telephone [facility] MEDICINE [address] [place] [address] Name, MD Kiel [address] [place] [address] Durable Medical Equipment Social History Tobacco Use [...] to message above. Please contact pt at [phone] (Azeri) * Telephone Encounter - Jean-Paul Finch - 12/06/2022 3:29 PM EDT Tc from pt requesting status on some bed absorbant pads to not stain bed. Please contact pt at [phone] Azeri Speaker documented in this encounter Plan of Treatment Upcoming Encounters Date Type Department Care Team (Late st Contact Info) Description 05/07/2024 10:30 AM EDT Medication Management [facility] MEDICINE [address] [place] [address] Katlyn Rodriguez, PharmD [address] [place] [address] 07/10/2024 9:00 AM EDT Clinical Support [facility] MEDICINE [address] [place] [address] Opal Steiner, RN documented as of this [...] documented as of this encounter Care Teams Day Care Worker Relationship Specialty Start Date End Date Name, MD Kiel [address] [place] [address] PCP - General Family Medicine 07/15/15 Puia, Katlyn, PharmD [address] [place] [address] Pharmacist Internal Medicine 10/08/22 Marta Ovalle Leveler HelperPackage Designer 05/25/23 documented as of this encounter
--- OUTSIDE RECORDS SUMMARY | 2024-04-27 16:10 | XMS_ITS | Encounter Summary ---
Author Organization [employer] Address [address] [place] [address] 7t [place] [address] Care Team Providers Care Anesthesiology Faculty Name Role Phone Name, Kiel BAILEY Primary Care Provider [phone] Katlyn Rodriguez PharmD Unavailable [phone] Reason for Visit * Reason Comments Med Refill Encounter Details Date Type Department Care Team ([facility] Contact Info) Description 02/10/2022 Refill [facility]EDS [address] [place], [place] [phone] Name, MD Kiel [address] [place] [address] Chronic pain syndrome (Primary Dx) Social History [...] Encounters Date Type Department Care Team ([facility] Contact Info) Description 05/07/2024 10:30 AM EDT Medication Management [facility] MEDICINE [address] [place] [phone] Katlyn Rodriguez PharmD [address] [place] [address] 07/10/2024 9:00 AM EDT Clinical Support [facility] MEDICINE [address] [place] [address] Opal Steiner, MARINA documented as of this encounter Visit Diagnoses Diagnosis Chronic pain syndrome- Primary documented in this encounter Care Teams Anesthesiology Faculty Relationship Specialty Start Date End Date Name, MD Kiel [address] [place] [address] PCP - General Family Medicine 07/15/15 Katlyn Rodriguez, AngieD [address] [place] [address] Pharmacist Internal Medicine 10/08/22 Marta Ovalle Charge CoordinatorScreen Tacker 05/25/23 documented as of this encounter
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
--- OUTSIDE RECORDS SUMMARY | 2024-04-27 16:10 | XMS_ITS | Encounter Summary ---
Author Organization [facility] Address [address] [place] [address] Care Team Providers Care Afterschool Name Role Phone Name, Kiel BAILEY Primary Care Provider [phone] Encounter Details Date Type Department Care Team Description 09/10/2022 Social Work [facility] Oncology Services [address] [place] [address] Adina Archer, [facility] Social History Tobacco Use Types Packs/Day Years [...] on filedocumented in this encounter Care Teams Afterschool Relationship Specialty Start Date End Date Name, MD Kiel [address] [place] [address] [address] [place] [address] PCP - General Internal Medicine 04/17/18 documented as of this encounter
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
== END 2024-04-27 14:28 | disposition home or self-care (01) ==
LOC: HO.HHCX 14:27
PROVIDERS: Visit Provider Internal Medicine
DX: M54.6 Pain in thoracic spine (principal); R07.81 Pleurodynia
CPT/HCPCS: 71101

== ENCOUNTER → 2024-04-27 14:28 | Outpatient (BNV) | payer OTHER, SELFPAY | PROVIDERS: Visit Provider Radiology Diagnostic Radiology | DX: R07.89 Other chest pain (principal) | CPT/HCPCS: 71101 ==

== ENCOUNTER 2024-05-14 08:58 | Outpatient (AMB) | payer OTHER, SELFPAY ==
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
[2024-05-14 09:06] VITALS: BMI 41.1
== END 2024-05-14 09:41 | disposition home or self-care (01) ==
LOC: HO.HOS 08:59
PROVIDERS: Visit Provider Physician Assistant
DX: M25.522 Pain in left elbow (principal)
CPT/HCPCS: 99203

== ENCOUNTER 2024-06-15 13:44 | Outpatient (REF) | payer MEDICAID, SELFPAY ==
--- OUTSIDE RECORDS SUMMARY | 2024-06-15 14:28 | XMS_ITS | Encounter Summary ---
Author Organization [facility] Address [address] [place] [address] Care Team Providers Care Branding Machine Tender Name Role Phone Name, Kiel BAILEY Primary Care Provider [phone] Encounter Details Date Type Department Care Team Description 09/10/2022 Social Work [facility] Oncology Services [address] [place] [address] Adina Archer, [facility] Social History Tobacco Use Types Packs/Day Years [...] on filedocumented in this encounter Care Teams Branding Machine Tender Relationship Specialty Start Date End Date Name, MD Kiel [address] [place] [address] [address] [place] [address] PCP - General Internal Medicine 04/17/18 documented as of this encounter
--- OUTSIDE RECORDS SUMMARY | 2024-06-15 14:28 | XMS_ITS | Encounter Summary ---
Author Organization [facility] Address [address] [place] [address] Care Team Providers Care Rental Management Trainee Name Role Phone Name, Kiel BAILEY Primary Care Provider [phone] Encounter Details Date Type Department Care Team (Late Contact Info) Description 11/24/2023 10:30 AM EDT Hospital Encounter TH HISTORIC ENCOUNTERS EASTERN CONVERSION ONLY Geoffrey-Art Vitale MD [address] [place] [phone] Social History Tobacco Use Types Packs/Day Years [...] Department Care Team (Late Contact Info) Description 06/28/2024 9:00 AM EDT Office Visit Orthopedic Surgery [facility] [address] [facility] [address] [place] [phone] Wesley Garcia, DPM [address] [facility] [address] [place] [address] documented as of this encounter Visit Diagnoses Not on filedocumented in this encounter Additional Health Concerns Infection Onset Date Last Indicated Resolved Time Respiratory Rule-Out 02/05/2024 02/05/2024 024 8:09 AM EST COVID-19 Rule-Out 02/05/2024 02/05/2024 02/05/2024 8:09 AM EST documented as of this encounter Care Teams Rental Management Trainee Relationship Specialty Start Date End Date Name, MD Kiel [address] [place], [place] PCP - General Internal Medicine 08/28/15 documented as of this encounter
--- OUTSIDE RECORDS SUMMARY | 2024-06-15 14:28 | XMS_ITS | Clinical Summary ---
Author Organization [facility] Address [address] [place] [address] Care Team Providers Care Rn Dermatology Name Role Phone Name, Kiel BAILEY Primary Care Provider [phone] Allergies Active Allergy Reactions Criticality Noted Date [...] age to complete this topic Care Teams Rn Dermatology Relationship Specialty Start Date End Date Name, MD Kiel [address] [facility] [address] [place] [address] PCP - General Internal Medicine 04/17/18
--- OUTSIDE RECORDS SUMMARY | 2024-06-15 14:28 | XMS_ITS | Encounter Summary ---
Author Organization [facility] Address [address] [place] [address] Care Team Providers Care Senior Actuarial Analyst Name Role Phone Name, Kiel BAILEY Primary Care Provider [phone] Encounter Details Date Type Department Care Team (Late st Contact Info) Description 11/24/2023 9:53 AM EDT Hospital Encounter TH HISTORIC ENCOUNTERS EASTERN CONVERSION ONLY Geoffrey-Art Vitale MD [address] [place] [address] Social History Tobacco Use Types [...] 2:17 PM Encounter Date: 11/24/2023 Status: Signed Grab Jack Worker: Art Davis MD (Physician) CHIEF COMPLAINT: Chief Complaint Patient presents with ? Follow-up Diffuse large B-cell lymphoma Stage III Completed 6 cycles of R-CHOP in July 23, 2018 IDENTIFIER:Sarita Puga is a 58 y.o. female. HPI: The patient returns for follow up of Large B-cell lymphoma. Here with her daughter , who is lao to kazakh multi disciplined language analyst Patient reports that she has been doing [...] accompanied by her daughter and girlfriend. As [place]ian to Yi multi disciplined language analyst assisted with the discussion. She had a [...] Care Team (Late st Contact Info) Description 06/28/2024 9:00 AM EDT Office Visit Orthopedic Surgery - [place] [address] [phone] Wesley Garcia DPM [address] [address] documented as of this encounter Procedures Procedure [...] as of this encounter Care Teams Senior Actuarial Analyst Relationship Specialty Start Date End Date Name, MD Kiel [address] [place], [place] PCP - General Internal Medicine 08/28/15 documented as of this encounter
--- OUTSIDE RECORDS SUMMARY | 2024-06-15 14:28 | XMS_ITS | Clinical Summary ---
Author Organization [facility] Address [address] [place] [address] Phone Care Team Providers Care Line Maintainer Section Name Role Phone Name, Kiel BAILEY Primary Care Provider [phone] Allergies Active Allergy Reactions Criticality Noted Date [...] Problem Noted Date Diagnosed Date COPD exacerbation ([facility] V24, [facility] V28) Abnormal nuclear stress test 11/06/2014 Rib fracture 12/24/2013 Overview (12/12/2023): Non displaced, probable froacture on the right ninth and tenth Abdominal pain 08/15/2013 Lipoma of abdominal wall 11/02/2011 Visual field defect 03/29/2011 Cocaine abuse, episodic use ([facility] V24, [facility] V28) 06/17/2010 Low back pain radiating to left leg 10/08/2009 Overview (12/12/2023): The patient follows with [facility] and is treated with injections to the LS. Asthmatic bronchitis , chronic ([facility] V24, [facility] V28) 07/07/2009 Overview (12/12/2023): Severe and worse in the spring. Last hospitalazion in May and 3 ER visits Hospital 08/02 Known medical problems 06/05/2009 Tobacco use disorder 06/05/2009 Hypertriglyceridemia 06/05/2009 Morbid obesity ([facility] V24, [facility] V28) 2009 Overview (12/12/2023): BMI 48.37 on 11/15/13 Depression 06/05/2009 Immunizations [...] TOTAL HYSTERECTOMY WITH BSO; COMMENT: for bleeding, [facility] Medical History Medical History Date Comments Type II or unspecified type diabetes mellitus with unspecified complication, not stated as uncontrolled DX:Type II or unspecified t ype diabetes mellitus with unspecified complication, not stated as uncontrolled Unspecified essential hypertension DX:Unspecified essential hypertension Tobacco abuse DX:Tobacco abuse RAD (reactive airway disease) DX :RAD (reactive airway disease) Morbid obesity ([facility] V24, [facility] V28) DX:Morbid obesity (HCC) Asthmatic bronchitis , chron ic ([facility] V24, [facility] V28) 07/07/2009 DX:Asthmatic bronchitis , ch ronic ([facility]) Hypertriglyceridemia 06/05/2009 DX:Hypertri glyceridemia Rib fracture 12/24/2013 DX:Rib fracture Family History Medical History Relation Name Comments Blindness Brother 1 Breast cancer Maternal Grandmother Cataracts Maternal Grandmother Blindness Mother Glaucoma Neg Hx Macular degeneration Neg Hx Strabismus Neg Hx Relation Name Status Comments Brother 1 Brother 2 [place] Brother 3 Alive 6 brothers are diabetic [...] 02/05/2024 9:16 PM EST Plan of Treatment Upcoming Encounters Date Type Department Care Team (Late st Contact Info) Description 06/28/2024 9:00 AM EDT Office Visit Orthopedic Surgery - [place] [address] [phone] Wesley Garcia, DPM [address] [address] Health Maintenance Due Date Last Done Comments Breast Cancer Screening 1965 Diabetes: Annual Foot Exam 08/22/1975 Diabetes: Annual Retina Eye Exam 08/22/1975 Hepatitis A Vaccines (1 of 2 - Risk 2-dose series) 1984 Cervical Cancer Screening: Pap Smear 1986 Colorectal Cancer Screening: Colonoscopy 01/29/2022 HIV Screening 01/29/2022 Social Influencers of Health Screening 01/29/2022 Diabetes: Annual Urine Albumin-Creatinine Ratio (uACR) 02/06/2022 05/10/2014 COVID-19 Vaccine () 10/23/2023 12/15/2021, 03/13/2021, 08/18/2020, Additional history exists Diabetes: [...] age to complete this topic Meningococcal B Vaccine Aged Out No l onger eligible based on patient's age to complete this topic RSV Immunization Patients Under 20 months Aged Out No longer eligible based on patient's age to complete this topic Varicella Vaccines Aged Out No longer eligible based on patient's age to complete this topic Procedures Procedure Name Priority Date/Time Associated Diagnosis Comments BASIC METABOLIC PANEL Routine 02/06/2024 2:59 AM EST HEMOGLOBIN A1C Routine 11/20/2014 URINE ALBUMIN CREATININE RATIO Routine 05/10/2014 LIPID PANEL Routine 05/10/2014 HEPATITIS C SCREENING Routine 10/10/2013 from Last 3 Months or Most Recently Relevant to Health Maintenance Results * (ABNORMAL) Basic metabolic panel (02/06/2024 2:59 AM EST) Sodium 136 133 - 145 mmol/L LAB CHEMISTRY METHOD 02/06/2024 3:36 AM [facility] Potassium 4.1 3.5 - 5.5 mmol/L LAB CHEMISTRY METHOD 02/06/2024 3:36 AM [facility] Chloride 104 96 - 110 mmol/L LAB CHEMISTRY METHOD 02/06/2024 3:36 AM [facility] CO2 23 21 - 32 mmol/L LAB CHEMISTRY METHOD 02/06/2024 3:36 AM [facility] Anion Gap 9 3 - 11 LAB CHEMISTRY METHOD 02/06/2024 3:36 AM [facility] Glucose 244(H) 70 - 100 mg/dL LAB CHEMISTRY METHOD 02/06/2024 3:36 AM [facility] BUN 17 5 - 25 mg/dL LAB CHEMISTRY METHOD 02/06/2024 3:36 AM [facility] Creatinine 0.71 0.50 - 1.10 mg/dL LAB CHEMISTRY METHOD 02/06/2024 3:[address] [facility] eGFR 99 >=60 mL/min/1. 73m2 LAB CHEMISTRY METHOD 02/06/2024 3:36 AM [facility] Comment:Calculation based on the??Chronic Kidney Disease Epidemiology Collaboration (CKD-EPI) equation refit??without adjustment for race. BUN/Creatinine Ratio 23.9 LAB CHEMISTRY METHOD 02/06/2024 3:36 AM [facility] Calcium 9.3 8.5 - 10.5 mg/dL LAB CHEMISTRY METHOD 02/06/2024 3:36 AM [facility] Blood Venous blood specimen / Unknown Venipuncture / Unknown 02/06/2024 2:59 AM EST 02/06/2024 3:13 AM EST Cindy SEGURA LAB BLOOD ORDERABLES Final R esult [facility] [address] [place] [address], * (ABNORMAL) Hemoglobin A1c (11/20/2014) Pathologist [facility] Hemoglobin A1C 7.5(A) 4.0 - 6.0 % Blood Venous blood specimen / Unknown Historical Provider LAB BLOOD ORDERABLES Alis l Result * Urine Albumin Creatinine Ratio (05/10/2014) Pathologist [facility] Urine Albumin Creatinine Ratio abstracted Historical Provider HEALTH MAINTENANCE Final Result * (ABNORMAL) Lipid panel (05/10/2014) LDL/HDL Ratio 4 0 - 4 Triglycerides 360(A) 0 - 150 mg/dL Cholesterol 179 0 - 200 mg/dL HDL 42 >=40 mg/dL LDL Cholesterol 65 0 - 100 mg/dL Blood Venous blood specimen / Unknown us Historical Provider MD LAB BLOOD ORDERABLES Alis l Result * Hepatitis C Screening (10/10/2013) Hepatitis C Screening abstracted us Historical Provider HEALTH MAINTENANCE Final Result from Last 3 [...] currently active code status orders. Care Teams Line Maintainer Section Relationship Specialty Start Date End Date Name, MD Kiel [address] [place], [place] PCP - General Internal Medicine 08/28/15
== END 2024-06-15 13:45 | disposition home or self-care (01) ==
LOC: HO.HHCL 13:44
PROVIDERS: Visit Provider Emergency Medicine
DX: M54.6 Pain in thoracic spine (principal)
CPT/HCPCS: 87086

== ENCOUNTER 2024-06-18 08:17 | Outpatient (REF) | payer MEDICAID, SELFPAY ==
--- OUTSIDE RECORDS SUMMARY | 2024-06-18 08:34 | XMS_ITS | Encounter Summary ---
Author Organization [facility] Address [address] [place] [address] Care Team Providers Care Pump Servicer Helper Name Role Phone Name, Kiel BAILEY Primary Care Provider [phone] Encounter Details Date Type Department Care Team (Late Contact Info) Description 11/24/2023 10:30 AM EDT Hospital Encounter TH HISTORIC ENCOUNTERS EASTERN CONVERSION ONLY Geoffrey-Art Vitale MD [address] [place] [phone] Social History Tobacco Use Types Packs/Day Years [...] 9:00 AM EDT Office Visit Orthopedic Surgery [facility] 250 [address] [facility] [address] [place] [phone] Wesley Garcia, DPM 175 [facility] [address] [place] [address] documented as of this encounter Visit Diagnoses Not on filedocumented in this encounter Additional Health Concerns Infection Onset Date Last Indicated Resolved Time Respiratory Rule-Out 02/05/2024 02/05/2024 024 8:09 AM EST COVID-19 Rule-Out 02/05/2024 02/05/2024 02/05/2024 8:09 AM EST documented as of this encounter Care Teams Pump Servicer Helper Relationship Specialty Start Date End Date Name, MD Kiel 4 [place], [place] PCP - General Internal Medicine 08/28/15 documented as of this encounter
--- OUTSIDE RECORDS SUMMARY | 2024-06-18 08:34 | XMS_ITS | Encounter Summary ---
Author Organization [facility] Address [address] [place] [address] Care Team Providers Care Kelly Machine Operator Name Role Phone Name, Kiel BAILEY Primary Care Provider [phone] Encounter Details Date Type Department Care Team (Late st Contact Info) Description 11/24/2023 9:53 AM EDT Hospital Encounter TH HISTORIC ENCOUNTERS EASTERN CONVERSION ONLY Geoffrey-Art Vitale MD [address] [place] [address] Social History Tobacco Use Types [...] PM Encounter Date: 11/24/2023 Status: Signed Manager Aviation: Art Davis MD (Physician) CHIEF COMPLAINT: Chief Complaint Patient presents with ? Follow-up Diffuse large B-cell lymphoma Stage III Completed 6 cycles of R-CHOP in July 23, 2018 IDENTIFIER:Sarita Puga is a 58 y.o. female. HPI: The patient returns for follow up of Large B-cell lymphoma. Here with her daughter , who is french to sami vp product marketing Patient reports that she has been doing [...] accompanied by her daughter and girlfriend. As Malaysian to Romanian vp product marketing assisted with the discussion. She had a [...] AM EDT Office Visit Orthopedic Surgery - [place] [address] [phone] Wesley Garcia DPM [address] [address] documented as of this encounter Procedures Procedure [...] documented as of this encounter Care Teams Kelly Machine Operator Relationship Specialty Start Date End Date Name, MD Kiel 4 [place], [place] PCP - General Internal Medicine 08/28/15 documented as of this encounter
--- OUTSIDE RECORDS SUMMARY | 2024-06-18 08:34 | XMS_ITS | Clinical Summary ---
Author Organization 175 [facility] Address 175 [place] [address] Phone Care Team Providers Care Consumer Insight Manager Name Role Phone Name, Kiel BAILEY Primary Care Provider [phone] Allergies Active Allergy Reactions Criticality Noted Date [...] Problem Noted Date Diagnosed Date COPD exacerbation ([facility] V24, [facility] V28) Abnormal nuclear stress test 11/06/2014 Rib fracture 12/24/2013 Overview (12/12/2023): Non displaced, probable froacture on the right ninth and tenth Abdominal pain 08/15/2013 Lipoma of abdominal wall 11/02/2011 Visual field defect 03/29/2011 Cocaine abuse, episodic use ([facility] V24, [facility] V28) 06/17/2010 Low back pain radiating to left leg 10/08/2009 Overview (12/12/2023): The patient follows with [facility] and is treated with injections to the LS. Asthmatic bronchitis , chronic ([facility] V24, [facility] V28) 07/07/2009 Overview (12/12/2023): Severe and worse in the spring. Last hospitalazion in May and 3 ER visits Hospital 08/02 Known medical problems 06/05/2009 Tobacco use disorder 06/05/2009 Hypertriglyceridemia 06/05/2009 Morbid obesity ([facility] V24, [facility] V28) 2009 Overview (12/12/2023): BMI 48.37 on [...] TOTAL HYSTERECTOMY WITH BSO; COMMENT: for bleeding, [facility] Medical History Medical History Date Comments Type II or unspecified type diabetes mellitus with unspecified complication, not stated as uncontrolled DX:Type II or unspecified t ype diabetes mellitus with unspecified complication, not stated as uncontrolled Unspecified essential hypertension DX:Unspecified essential hypertension Tobacco abuse DX:Tobacco abuse RAD (reactive airway disease) DX :RAD (reactive airway disease) Morbid obesity ([facility] V24, [facility] V28) DX:Morbid obesity (HCC) Asthmatic bronchitis , chron ic ([facility] V24, [facility] V28) 07/07/2009 DX:Asthmatic bronchitis , ch ronic ([facility]) Hypertriglyceridemia 06/05/2009 DX:Hypertri glyceridemia Rib fracture 12/24/2013 DX:Rib fracture Family History Medical History Relation Name Comments Blindness Brother 1 Breast cancer Maternal Grandmother Cataracts Maternal Grandmother Blindness Mother Glaucoma Neg Hx Macular degeneration Neg Hx Strabismus Neg Hx Relation Name Status Comments Brother 1 Brother 2 [place] Brother 3 Alive 6 brothers are diabetic [...] AM EDT Office Visit Orthopedic Surgery - [place] [address] [phone] Wesley Garcia, DPM [address] [address] Health Maintenance Due Date Last Done Comments [...] mmol/L LAB CHEMISTRY METHOD 02/06/2024 3:36 AM [facility] Potassium 4.1 3.5 - 5.5 mmol/L LAB CHEMISTRY METHOD 02/06/2024 3:36 AM [facility] Chloride 104 96 - 110 mmol/L LAB CHEMISTRY METHOD 02/06/2024 3:36 AM [facility] CO2 23 21 - 32 mmol/L LAB CHEMISTRY METHOD 02/06/2024 3:36 AM [facility] Anion Gap 9 3 - 11 LAB CHEMISTRY METHOD 02/06/2024 3:36 AM [facility] Glucose 244(H) 70 - 100 mg/dL LAB CHEMISTRY METHOD 02/06/2024 3:36 AM [facility] BUN 17 5 - 25 mg/dL LAB CHEMISTRY METHOD 02/06/2024 3:36 AM [facility] Creatinine 0.71 0.50 - 1.10 mg/dL LAB CHEMISTRY METHOD 02/06/2024 3:36 AM EST [facility] eGFR 99 >=60 mL/min/1. 73m2 LAB CHEMISTRY METHOD 02/06/2024 3:36 AM [facility] Comment:Calculation based on the??Chronic Kidney Disease Epidemiology Collaboration (CKD-EPI) equation refit??without adjustment for race. BUN/Creatinine Ratio 23.9 LAB CHEMISTRY METHOD 02/06/2024 3:36 AM [facility] Calcium 9.3 8.5 - 10.5 mg/dL LAB CHEMISTRY METHOD 02/06/2024 3:36 AM [facility] Blood Venous blood specimen / Unknown Venipuncture / Unknown 02/06/2024 2:59 AM EST 02/06/2024 3:13 AM EST Cindy SEGURA LAB BLOOD ORDERABLES Final R esult [facility] [address] [place] [address], * (ABNORMAL) Hemoglobin A1c (11/20/2014) Pathologist [facility] Hemoglobin A1C 7.5(A) 4.0 - 6.0 % Blood Venous blood specimen / Unknown Historical Provider LAB BLOOD ORDERABLES Alis l Result * Urine Albumin Creatinine Ratio (05/10/2014) Pathologist [facility] Urine Albumin Creatinine Ratio abstracted Historical Provider [...] currently active code status orders. Care Teams Consumer Insight Manager Relationship Specialty Start Date End Date Name, MD Kiel 4 [place], [place] PCP - General Internal Medicine 08/28/15
--- OUTSIDE RECORDS SUMMARY | 2024-06-18 08:34 | XMS_ITS | Encounter Summary ---
Author Organization [employer] Address [address] 7t [place] [address] Care Team Providers Care Hand Scraper Name Role Phone Name, Keil BAILEY Primary Care Provider [phone] Katlyn Rodriguez PharmD Unavailable [phone] Encounter Details Date Type Department Care Team ([facility] Contact Info) Description 05/01/2024 Telephone [facility] MEDICINE [address] [place], [place] [phone] Name, MD Kiel [address] [place] [address] Social History Tobacco Use Types Packs/Day Years [...] encounter Miscellaneous Notes * Telephone Encounter - Aretha Lagos - 05/01/2024 4:50 PM EDT Tc from [place] with Chaitanya regarding script for incontinence pads. Tonya stated forms were filled out incorrectly and will be faxing over new forms. documented in this encounter Plan of Treatment Upcoming Encounters Date Type Department Care Team (Late st Contact Info) Description 07/12/2024 9:30 AM EDT Medication Management [address] [address] Katlyn Rodriguez, PharmD [address] [place] [address] 07/27/2024 10:00 AM EDT Office Visit [address] [address] Name, MD Kiel [address] [place] [address] 08/20/2024 9:30 AM EDT Clinical Support [address] [address] Opal Steiner, RN documented as of this encounter Goals Goal Patient Goal Type Associated Problems Recent Progress Patient-Stated? Author Record your blood pressure once per day Blood Pressure No Puia, Katlyn, PharmD Blood Pressure < 140/90 Blood Pressure 126/69(2024 8:44 AM EDT) No Puia, Katlyn, PharmD Hemoglobin A1c < [...] documented as of this encounter Care Teams Hand Scraper Relationship Specialty Start Date End Date Name, MD iKel 230 [place] [address] PCP - General Family Medicine 07/15/15 Adenia, Katlyn, PharmD 230 [place] [address] Pharmacist Internal Medicine 10/08/22 Marta Ovalle Furrier Shop SupervisorWheat Combine Driver 05/25/23 documented as of this encounter
--- OUTSIDE RECORDS SUMMARY | 2024-06-18 08:34 | XMS_ITS | Encounter Summary ---
Author Organization [facility] Address [address] [place] [address] 7t [place] [address] Care Team Providers Care Outsole Flexer Name Role Phone Name, Kiel BAILEY Primary Care Provider [phone] Katlyn Rodriguez PharmD Unavailable [phone] Encounter Details Date Type Department Care Team ([facility] Contact Info) Description 08/26/2022 Orders Only [facility] [address] [place] [address] Leia Gonzales LPN Social History Tobacco [...] Upcoming Encounters Date Type Department Care Team ([facility] Contact Info) Description 07/12/2024 9:30 AM EDT Medication Management [facility] [address] [place] [phone] Katlyn Rodriguez PharmD [facility] [place] [address] 07/27/2024 10:00 AM EDT Office [address] [place] [address] Name, [place] [address] 08/20/2024 9:30 AM EDT Clinical Support [address] [place] [address] Opal Steiner RN documented as of this encounter Visit Diagnoses Not on filedocumented in this encounter Additional Health Concerns Assessment Noted Time PHQ-9 Depression Total Score: 7 07/15/19 23 2:39 PM EDT documented as of this encounter Care Teams Outsole Flexer Relationship Specialty Start Date End Date Name, MD Kiel Jai [facility] [place] [address] PCP - General Family Medicine 07/15/15 Katlyn Rodriguez PharmD [address] [place], [place] [address] [place] [address] Pharmacist Internal Medicine 10/08/22 Marta Ovalle Suppression Crew LeaderBobbin Cleaner Hand 05/25/23 documented as of this encounter
--- OUTSIDE RECORDS SUMMARY | 2024-06-18 08:34 | XMS_ITS | Encounter Summary ---
Author Organization [employer] Address [address] 7t [place] [address] Care Team Providers Care Computer Operations Manager Name Role Phone Name, Kiel BAILEY Primary Care Provider [phone] Katlyn Rodriguez PharmD Unavailable [phone] Encounter Details Date Type Department Care Team ([facility] st Contact Info) Description 02/20/2024 Telephone [facility] [address] [place], [place] [phone] Name, MD Kiel 230 [place] [address] Social History Tobacco Use Types Packs/Day Years [...] Description 07/12/2024 9:30 AM EDT Medication Management [address] [address] AdeniaKatlyn, PharmD [address] [place] [address] 07/27/2024 10:00 AM EDT Office Visit [address] [address] Name, MD Kiel [address] [place] [address] 08/20/2024 9:30 AM EDT Clinical Support [address] [address] Opal Steiner, MARINA documented as of this encounter Goals Goal Patient Goal Type Associated Problems Recent Progress Patient-Stated? Author Record your blood pressure once per day Blood Pressure No PuiaReidKatlyn, PharmD Blood Pressure < 140/90 Blood Pressure 126/69(2024 8:44 AM EDT) No Puia, Katlyn, PharmD Hemoglobin A1c < 7 Result Component 7.5( 10:50 AM EST) No Puia Katlyn, PharmD Record your blood sugar as directed Result Component No Katlyn Rodriguez PharmD documented as of this encounter Visit Diagnoses Not on filedocumented in this encounter Additional Health Concerns Assessment Noted Time PHQ-9 Depression Total Score: 4 09/02/19 24 10:30 AM EDT documented as of this encounter Care Teams Computer Operations Manager Relationship Specialty Start Date End Date Name, MD Kiel 230 [place] [address] PCP - General Family Medicine 07/15/15 Katlyn Rodriguez PharmD 230 [place] [address] Pharmacist Internal Medicine 10/08/22 Marta Ovalle Claims AttorneyWarehouse Material Handler 05/25/23 documented as of this encounter
--- OUTSIDE RECORDS SUMMARY | 2024-06-18 08:35 | XMS_ITS | Encounter Summary ---
Author Organization [facility] Address [address] [place] [address] 7t [place] [address] Care Team Providers Care Barrel Cooper Name Role Phone Name, Kiel BAILEY Primary Care Provider [phone] Katlyn Rodriguez PharmD Unavailable [phone] Reason for Visit * Reason Comments Med Refill Encounter Details Date Type Department Care Team (Late Contact Info) Description 06/28/2022 Refill [facility] MEDICINE [address] [place] [address] Name, MD Kiel [address] [place] [address] Chronic pain syndrome Social History Tobacco Use [...] Encounters Date Type Department Care Team ([facility] Contact Info) Description 07/12/2024 9:30 AM EDT Medication Management [facility] MEDICINE [address] [place] [address] Katlyn Rodriguez PharmD [address] [place] [address] 07/27/2024 10:00 AM EDT Office Visit [address] [address] Name, [place] [address] 08/20/2024 9:30 AM EDT Clinical Support [address] [address] Opal Steiner RN documented as of this encounter Visit Diagnoses Diagnosis Chronic pain syndrome documented in this encounter Care Teams Barrel Cooper Relationship Specialty Start Date End Date Name, MD Kiel [address] [place] [address] PCP - General Family Medicine 07/15/15 Katlyn Rodriguez, PharmD [address] [place] [address] Pharmacist Internal Medicine 10/08/22 Marta Ovalle Mud WorkerMirror Fabrication Supervisor 05/25/23 documented as of this encounter
--- OUTSIDE RECORDS SUMMARY | 2024-06-18 08:35 | XMS_ITS | Encounter Summary ---
Author Organization [employer] Address [address] [facility] 7t [place] [address] Care Team Providers Care Nurse Sitter Name Role Phone Name, Kiel BAILEY Primary Care Provider [phone] Katlyn Rodriguez PharmD Unavailable [phone] Reason for Visit * Reason Comments Med Refill Encounter Details Date Type Department Care Team ([facility] st Contact Info) Description 04/15/2023 Refill [facility] MEDICINE 230 [place] [address] Yaneth Restrepo FNP 230 [place] [address] Diabetes mellitus type 2 in obese (CMS/HCC) [...] Description 07/12/2024 9:30 AM EDT Medication Management [address] [address] PuiaKatlyn, PharmD [address] [place] [address] 07/27/2024 10:00 AM EDT Office Visit [address] [address] Name, MD Kiel [address] [place] [address] 08/20/2024 9:30 AM EDT Clinical Support [address] [address] Opal Steiner RN documented as of this [...] documented as of this encounter Care Teams Nurse Sitter Relationship Specialty Start Date End Date Name, MD Kiel 230 [place] [address] PCP - General Family Medicine 07/15/15 Katlyn Rodriguez PharmD 230 [place] [address] Pharmacist Internal Medicine 10/08/22 Marta Ovalle Research GeologistGlass Blower Helper 05/25/23 documented as of this encounter
--- OUTSIDE RECORDS SUMMARY | 2024-06-18 08:35 | XMS_ITS | Encounter Summary ---
Author Organization [employer] Address [address] [facility] 7t [place] [address] Care Team Providers Care Gauge Inspector Name Role Phone Name, Kiel BAILEY Primary Care Provider [phone] Katlyn Rodriguez PharmD Unavailable [phone] Reason for Visit * Reason Onset Date Comments Medication Problem 08/30/2023 Encounter Details Date Type Department Care Team ([facility] Contact Info) Description 08/30/2023 Telephone [facility] MEDICINE 230 [place], [place] [phone] Name, MD Kiel 230 [place] [address] Medication Problem Social History Tobacco Use Types [...] Description 07/12/2024 9:30 AM EDT Medication Management [address] [address] Katlyn Rodriguez PharmD [address] [place] [address] 07/27/2024 10:00 AM EDT Office Visit [address] [address] Name, MD Kiel [address] [place] [address] 08/20/2024 9:30 AM EDT Clinical Support [address] [address] Opal Steiner, MARINA documented as of this [...] documented as of this encounter Care Teams Gauge Inspector Relationship Specialty Start Date End Date Name, MD Kiel 230 [place] [address] PCP - General Family Medicine 07/15/15 Katlyn Rodriguez, PharmD 230 [place] [address] Pharmacist Internal Medicine 10/08/22 Marta Ovalle Marine Service OperatorEnvironmental Services Assistant 05/25/23 documented as of this encounter
--- OUTSIDE RECORDS SUMMARY | 2024-06-18 08:35 | XMS_ITS | Encounter Summary ---
Author Organization [facility] Address [address] [place] [address] 7t [place] [address] Care Team Providers Care Quail Farmer Name Role Phone Name, Kiel BAILEY Primary Care Provider [phone] Katlyn Rodriguez PharmD Unavailable Reason for Visit * Reason Comments Med Refill Encounter Details Date Type Department Care Team ([facility] Contact Info) Description 07/16/2022 Refill [facility] MEDICINE 230 [place] [address] Name, MD Kiel 230 [place] [address] Chronic pain syndrome Social History Tobacco Use [...] Upcoming Encounters Date Type Department Care Team ([facility] st Contact Info) Description 07/12/2024 9:30 AM EDT Medication Management [address] [address] Katlyn Rodriguez PharmD [address] [place] [address] 07/27/2024 10:00 AM EDT Office Visit [address] [address] Name, MD Kiel [address] [place] [address] 08/20/2024 9:30 AM EDT Clinical Support [address] [address] Opal Steiner, RN documented as of this encounter Visit Diagnoses Diagnosis Chronic pain syndrome documented in this encounter Additional Health Concerns Assessment Noted Time PHQ-9 Depression Total Score: 7 07/15/19 2:39 PM EDT documented as of this encounter Care Teams Quail Farmer Relationship Specialty Start Date End Date Name, MD Kiel [address] [place] [address] PCP - General Family Medicine 07/15/15 Katlyn Rodriguez PharmD [address] [place] [address] Pharmacist Internal Medicine 10/08/22 Marta Ovalle Small Business ConsultantHardware Trainer 05/25/23 documented as of this encounter
--- OUTSIDE RECORDS SUMMARY | 2024-06-18 08:35 | XMS_ITS | Encounter Summary ---
Author Organization [employer] Address [address] [facility] 7t [place] [address] Care Team Providers Care Topstitcher Zigzag Name Role Phone Name, Kiel BAILEY Primary Care Provider [phone] Katlyn Rodriguez PharmD Unavailable [phone] Reason for Visit * Reason Onset Date Comments Durable Medical Equipment 12/06/2022 Encounter Details Date Type Department Care Team ([facility] st Contact Info) Description 12/06/2022 Telephone [facility] MEDICINE 230 [place] [address] Name, MD Kiel 230 [place] [address] Durable Medical Equipment Social History Tobacco Use [...] to message above. Please contact pt at [phone] (Albanian) * Telephone Encounter - Jean-Paul Finch - 12/06/2022 3:29 PM EDT Tc from pt requesting status on some bed absorbant pads to not stain bed. Please contact pt at [phone] Albanian Speaker documented in this encounter Plan of Treatment Upcoming Encounters Date Type Department Care Team (Late st Contact Info) Description 07/12/2024 9:30 AM EDT Medication Management [facility] MEDICINE [address] [place] [address] Katlyn Rodriguez, PharmD 230 [place] [address] 07/27/2024 10:00 AM EDT Office Visit [facility] MEDICINE [address] [place] [address] Name, [place] [address] 08/20/2024 9:30 AM EDT Clinical Support [address] [address] Opal Steiner RN documented as of this [...] documented as of this encounter Care Teams Topstitcher Zigzag Relationship Specialty Start Date End Date Name, [place] [address] PCP - General Family Medicine 07/15/15 Puia, Katlyn, PharmD [address] [place] [address] Pharmacist Internal Medicine 10/08/22 Marta Ovalle Geotechnical Field TechnicianK 9 Handler/ Deputy 05/25/23 documented as of this encounter
--- OUTSIDE RECORDS SUMMARY | 2024-06-18 08:35 | XMS_ITS | Encounter Summary ---
Author Organization [employer] Address [address] [facility] 7t [place] [address] Care Team Providers Care Aircraft Armament Mechanic Name Role Phone Name, Kiel BAILEY Primary Care Provider [phone] Katlyn Rodriguez PharmD Unavailable [phone] Reason for Visit * Reason Onset Date Comments Med Refill 06/15/2024 Encounter Details Date Type Department Care Team ([facility] st Contact Info) Description 06/15/2024 Telephone [facility] [address] [place] [address] Name, MD Kiel [address] [place] [address] Med Refill Social History Tobacco Use Types Packs/Day Years [...] encounter Miscellaneous Notes * Telephone Encounter - Renetta Power RN - 06/15/2024 9:32 AM EDT [facility] checked today, rx oxycodone 10 mg last sold on 05/18 wit 56 tabs ( 28 days supply). Pt is due for refill today and medication pended to PCP for review. * Telephone Encounter - Martha Frey - 06/15/2024 9:14 AM EDT oxyCODONE (Roxicodone) 10 MG immediate release tablet documented in this encounter Plan of Treatment Upcoming Encounters Date Type Department Care Team (Late st Contact Info) Description 07/12/2024 9:30 AM EDT Medication Management [facility] [address] [place] [address] Katlyn Rodriguez, PharmD 230 [place] [address] 07/27/2024 10:00 AM EDT Office Visit [facility] [address] [place] [address] Name, [place] [address] 08/20/2024 9:30 AM EDT Clinical Support [address] [address] Opal Steiner RN documented as of this [...] documented as of this encounter Care Teams Aircraft Armament Mechanic Relationship Specialty Start Date End Date Name, MD Kiel [address] [place] [address] PCP - General Family Medicine 07/15/15 Puia, Katlyn, PharmD [address] [place] [address] Pharmacist Internal Medicine 10/08/22 Marta Ovalle Work ManagerDrier Tender 05/25/23 documented as of this encounter
--- OUTSIDE RECORDS SUMMARY | 2024-06-18 08:35 | XMS_ITS | Encounter Summary ---
Author Organization [employer] [facility] Address [address] [facility] 7t [place] [address] Care Team Providers Care Floriculture Professor Name Role Phone Name, Kiel BAILEY Primary Care Provider Katlyn Rodriguez PharmD Unavailable [phone] Encounter Details Date Type Department Care Team ([facility] Contact Info) Description 02/23/2022 Orders Only [facility] 230 [place] [address] Name, MD Kiel [address] [place] [address] Social History Tobacco Use Types Packs/Day Years [...] Upcoming Encounters Date Type Department Care Team ([facility] Contact Info) Description 07/12/2024 9:30 AM EDT Medication Management [facility] 230 [place] [address] PuiaKatlyn, PharmD 230 [place] [address] 07/27/2024 10:00 AM EDT Office Visit [address] [address] Name, [place] [address] 08/20/2024 9:30 AM EDT Clinical Support [address] [phone] Opal Steiner, MARINA documented as of this encounter Visit Diagnoses Not on filedocumented in this encounter Care Teams Floriculture Professor Relationship Specialty Start Date End Date Name, MD Kiel [address] [place] [address] PCP - General Family Medicine 07/15/15 Katlyn Rodriguez PharmD [address] [place] [address] Pharmacist Internal Medicine 10/08/22 Marta Ovalle Ski InstructorContinuity Tester 05/25/23 documented as of this encounter
--- OUTSIDE RECORDS SUMMARY | 2024-06-18 08:35 | XMS_ITS | Encounter Summary ---
Author Organization [facility] Address [address] [place] [address] 7t [place] [address] Care Team Providers Care Bander And Cellophaner Machine Helper Name Role Phone Name, Kiel BAILEY Primary Care Provider [phone] Katlyn Rodriguez PharmD Unavailable [phone] Encounter Details Date Type Department Care Team ([facility] Contact Info) Description 10/29/2022 Abstract [facility] MED[facility]INE [address] [place] [address] Name, MD Kiel [address] [place] [address] Social History Tobacco Use Types Packs/Day Years [...] Care Team ([facility] Contact Info) Description 07/12/2024 9:30 AM EDT Medication Management [facility] [address] [place] [address] [phone] Katlyn Rodriguez, PharmD 230 [place], [place] [phone] 07/27/2024 10:00 AM EDT Office Visit [address] [address] [place] [address] 08/20/2024 9:30 AM EDT Clinical Support [address] [phone] Opal Steiner, RN documented as of this encounter Goals Goal Patient Goal Type Associated Problems Recent Progress Patient-Stated? Author Hemoglobin A1c < 7 Result Component 7.5( 10:50 AM EST) No Katlyn Rdoriguez, PharmD Record your blood sugar as directed [...] documented as of this encounter Care Teams Bander And Cellophaner Machine Helper Relationship Specialty Start Date End Date Name, [place] [address] PCP - General Family Medicine 07/15/15 PuiaKatlyn, PharmD [address] [place] [address] Pharmacist Internal Medicine 10/08/22 Marta Ovalle Dairy Truck DriverManager Asset 05/25/23 documented as of this encounter
--- OUTSIDE RECORDS SUMMARY | 2024-06-18 08:35 | XMS_ITS | Encounter Summary ---
Author Organization [employer] Address [address] [facility] 7t [place] [address] Care Team Providers Care Derrick Follower Name Role Phone Name, Kiel BAILEY Primary Care Provider [phone] Katlyn Rodriguez PharmD Unavailable [phone] Reason for Visit * Reason Comments Med Refill Encounter Details Date Type Department Care Team ([facility] st Contact Info) Description 06/08/2024 Refill [facility] [address] [place], [place] [phone] Name, MD Kiel 230 [place] [address] Chronic pain syndrome Social History Tobacco Use [...] Description 07/12/2024 9:30 AM EDT Medication Management [address] [address] PuiaReidKatlyn, PharmD [address] [place] [address] 07/27/2024 10:00 AM EDT Office Visit [address] [address] Name, MD Kiel [address] [place] [address] 08/20/2024 9:30 AM EDT Clinical Support [address] [address] Opal Steiner RN documented as of this [...] documented as of this encounter Care Teams Derrick Follower Relationship Specialty Start Date End Date Name, MD Kiel 230 [place] [address] PCP - General Family Medicine 07/15/15 Katlyn Rodriguez, PharmD 230 [place] [address] Pharmacist Internal Medicine 10/08/22 Marta Ovalle Delivery And Installation SubcontractorSubway Repair Supervisor 05/25/23 documented as of this encounter
--- OUTSIDE RECORDS SUMMARY | 2024-06-18 08:35 | XMS_ITS | Encounter Summary ---
Author Organization [employer] [facility] Address [address] [place] [address] 7t [place] [address] Care Team Providers Care Lead Pl Sql Developer Name Role Phone Name, Kiel BAILEY Primary Care Provider [phone] Katlyn Rodriguez PharmD Unavailable [phone] Reason for Visit * Reason Comments Med Refill Encounter Details Date Type Department Care Team (Late Contact Info) Description 07/02/2022 Refill [facility] MEDICINE [address] [place] [address] Name, MD Kiel [address] [place] [address] Chronic pain syndrome Social History Tobacco Use [...] ([facility] Contact Info) Description 07/12/2024 9:30 AM EDT Medication Management [facility] [address] [place] [address] Katlyn Rodriguez PharmD [address] [place] [address] 07/27/2024 10:00 AM EDT Office Visit [address] [address] Name, [place] [address] 08/20/2024 9:30 AM EDT Clinical Support [address] [address] Opal Steiner RN documented as of this encounter Visit Diagnoses Diagnosis Chronic pain syndrome documented in this encounter Care Teams Lead Pl Sql Developer Relationship Specialty Start Date End Date Name, MD Kiel [address] [place] [address] PCP - General Family Medicine 07/15/15 Katlyn Rodriguez, PharmD [address] [place] [address] Pharmacist Internal Medicine 10/08/22 Marta Ovalle Engineering Manager ElectronicsGold Cutter 05/25/23 documented as of this encounter
--- OUTSIDE RECORDS SUMMARY | 2024-06-18 08:35 | XMS_ITS | Encounter Summary ---
Author Organization [employer] [facility] Address [address] [place] [address] 7t [place] [address] Care Team Providers Care Freezer Machine Operator Name Role Phone Name, Kiel BAILEY Primary Care Provider [phone] Katlyn Rodriguez PharmD Unavailable [phone] Reason for Visit * Reason Comments Med Refill Encounter Details Date Type Department Care Team (Late Contact Info) Description 04/25/2022 Refill [facility] [address] [place] [address] Name, MD Kiel [address] [place] [address] Diabetes mellitus type 2 in obese (CMS/HCC) [...] Upcoming Encounters Date Type Department Care Team ([facility] Contact Info) Description 07/12/2024 9:30 AM EDT Medication Management [address] [address] Katlyn Rodriguez PharmD [facility] [place] [address] 07/27/2024 10:00 AM EDT Office Visit [address] [address] Name, MD Kiel Jai [facility] [place] [address] 08/20/2024 9:30 AM EDT Clinical Support [address] [address] Opal Steiner RN documented as of this encounter Visit Diagnoses Diagnosis Diabetes mellitus type 2 in obese- Primary Type II or unspecified type diabetes mellitus without mention of complication, not stated as uncontrolled documented in this encounter Care Teams Freezer Machine Operator Relationship Specialty Start Date End Date Name, MD Kiel [facility] [place] [address] PCP - General Family Medicine 07/15/15 Katlyn Rodriguez PharmD [address] [place], [place] [address]roy[address] [place] [address] Pharmacist Internal Medicine 10/08/22 Marta Ovalle Maintenance EngineerPet Ambassador 05/25/23 documented as of this encounter
--- OUTSIDE RECORDS SUMMARY | 2024-06-18 08:35 | XMS_ITS | Encounter Summary ---
Author Organization [employer] Address [address] [facility] 7t [place] [address] Care Team Providers Care General Assignment Reporter Name Role Phone Name, Kiel BAILEY Primary Care Provider [phone] Katlyn Rodriguez PharmD Unavailable [phone] Reason for Visit * Reason Comments Med Refill Encounter Details Date Type Department Care Team ([facility] st Contact Info) Description 06/27/[address] [facility] MEDICINE 230 [place] [address] Katlyn Rodriguez, PharmD [address] [place] [address] Tobacco use disorder Social History Tobacco Use [...] Description 07/12/2024 9:30 AM EDT Medication Management [address] [address] Puia, Katlyn, PharmD [address] [place] [address] 07/27/2024 10:00 AM EDT Office Visit [address] [address] Name, MD Kiel [address] [place] [address] 08/20/2024 9:30 AM EDT Clinical Support [address] [address] Opal Steiner, MARINA documented as of this [...] Noted Time PHQ-9 Depression Total Score: 7 05/24/20 23 2:39 PM EDT documented as of this encounter Care Teams General Assignment Reporter Relationship Specialty Start Date End Date Name, MD Kiel [address] [place] [address] PCP - General Family Medicine 07/15/15 Katlyn Rodriguez, Bin [address] [place] [address] Pharmacist Internal Medicine 10/08/22 Marta Ovalle Linux System EngineerSupervisor Cutting Department 05/25/23 documented as of this encounter
--- OUTSIDE RECORDS SUMMARY | 2024-06-18 08:35 | XMS_ITS | Encounter Summary ---
Author Organization [employer] Address [address] [facility] 7t [place] [address] Care Team Providers Care Needle Loom Operator Helper Name Role Phone Name, Kiel BAILEY Primary Care Provider [phone] Katlyn Rodriguez PharmD Unavailable [phone] Reason for Visit * Reason Comments Med Refill Encounter Details Date Type Department Care Team ([facility] st Contact Info) Description 06/08/2024 Refill [facility] [address] [place], [place] [phone] Name, MD Kiel 230 [place] [address] Chronic pain syndrome Social History Tobacco Use [...] Description 07/12/2024 9:30 AM EDT Medication Management [address] [address] PuiaReidKatlyn, PharmD [address] [place] [address] 07/27/2024 10:00 AM EDT Office Visit [address] [address] Name, MD Kiel [address] [place] [address] 08/20/2024 9:30 AM EDT Clinical Support [address] [address] Opal Steiner RN documented as of this [...] documented as of this encounter Care Teams Needle Loom Operator Helper Relationship Specialty Start Date End Date Name, MD Kiel 230 [place] [address] PCP - General Family Medicine 07/15/15 Katlyn Rodriguez, PharmD 230 [place] [address] Pharmacist Internal Medicine 10/08/22 Marta Ovalle Lean LeaderA R Specialist 05/25/23 documented as of this encounter
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
--- OUTSIDE RECORDS SUMMARY | 2024-06-18 08:35 | XMS_ITS | Encounter Summary ---
Author Organization [employer] [facility] Address [address] [place] [address] 7t [place] [address] Care Team Providers Care Wash Operator Name Role Phone Name, Kile BAILEY Primary Care Provider [phone] Katlyn Rodriguez PharmD Unavailable [phone] Encounter Details Date Type Department Care Team ([facility] Contact Info) Description 07/01/[address] [facility] MEDICINE [address] [place] [address] Name, MD Kiel [address] [place] [address] Social History Tobacco Use Types Packs/Day Years [...] [facility] Contact Info) Description 07/12/2024 9:30 AM EDT Medication Management [facility] MEDICINE [address] [place] [address] Katlyn Rodriguez PharmD [address] [place] [address] 07/27/2024 10:00 AM EDT Office Visit [address] [address] Name, MD Kiel [address] [place] [address] 08/20/2024 9:30 AM EDT Clinical Support [address] [phone] Opal Steiner RN documented as of this encounter Procedures Procedure Name Priority Date/Time Associated Diagnosis Comments COLONOSCOPY Routine 07/01/2022 4:37 PM EDT documented in this encounter Results * Colonoscopy (07/01/2022 4:37 PM EDT) Colonoscopy Normal Normal Narrative Emely Devine - 07/01/2022 4:37 PM EDT Recommended 5 year follow up ([facility]) Historical Provider HEALTH MAINTENANCE Final Result documented in this encounter Visit Diagnoses Not on filedocumented in this encounter Care Teams Wash Operator Relationship Specialty Start Date End Date Name, MD Kiel [address] [place] [address] PCP - General Family Medicine 07/15/15 Katlyn Rodriguez, PharmD [address] [place] [address] Pharmacist Internal Medicine 10/08/22 Marta Ovalle Cardiovascular TechConfigurator 05/25/23 documented as of this encounter
--- OUTSIDE RECORDS SUMMARY | 2024-06-18 08:35 | XMS_ITS | Encounter Summary ---
Author Organization [employer] Address [address] [place] [address] 7t [place] [address] Care Team Providers Care Junior Art Director Name Role Phone Name, Kiel BAILEY Primary Care Provider [phone] Katlyn Rodriguez PharmD Unavailable [phone] Reason for Visit * Reason Comments Med Refill Encounter Details Date Type Department Care Team ([facility] Contact Info) Description 02/10/2022 Refill [facility] MED & PEDS [address] [place], [place] [phone] Name, MD Kiel [address] [place] [address] Chronic pain syndrome (Primary Dx) Social History [...] Upcoming Encounters Date Type Department Care Team ([facility] Contact Info) Description 07/12/2024 9:30 AM EDT Medication Management [facility] MEDICINE [address] [place] [address] Katlyn Rodriguez PharmD [address] [place] [address] 07/27/2024 10:00 AM EDT Office Visit [address] [address] Name, MD Kiel [address] [place] [address] 08/20/2024 9:30 AM EDT Clinical Support [address] [address] Opal Steiner RN documented as of this encounter Visit Diagnoses Diagnosis Chronic pain syndrome- Primary documented in this encounter Care Teams Junior Art Director Relationship Specialty Start Date End Date Name, MD Kiel [address] [place] [address] PCP - General Family Medicine 07/15/15 Katlyn Rodriguez, PharmD [address] [place] [address] Pharmacist Internal Medicine 10/08/22 Marta Ovalle It EngineerCity Designer 05/25/23 documented as of this encounter
--- OUTSIDE RECORDS SUMMARY | 2024-06-18 08:35 | XMS_ITS | Clinical Summary ---
Author Organization [facility] Address [address] [place] [address] Care Team Providers Care Occupational Health Specialist Name Role Phone Name, Kiel BAILEY Primary Care Provider [phone] Allergies Active Allergy Reactions Criticality Noted Date [...] age to complete this topic Care Teams Occupational Health Specialist Relationship Specialty Start Date End Date Name, MD Kiel [address] [facility] [address] [place] [address] PCP - General Internal Medicine 04/17/18
--- OUTSIDE RECORDS SUMMARY | 2024-06-18 08:35 | XMS_ITS | Encounter Summary ---
Author Organization [employer] Address [address] [facility] 7t [place] [address] Care Team Providers Care Records Administrator Name Role Phone Name, Kiel BAILEY Primary Care Provider [phone] Katlyn Rodriguez PharmD Unavailable [phone] Reason for Visit * Reason Comments Med Refill Encounter Details Date Type Department Care Team ([facility] st Contact Info) Description 09/07/2023 Refill [facility] MED & PEDS [address] [place], [place] [id number] Name, MD Kiel [address] [place] [address] Type 2 diabetes mellitus with other specified [...] Description 07/12/2024 9:30 AM EDT Medication Management [address] [address] PuiaReidKatlyn, PharmD [address] [place] [address] 07/27/2024 10:00 AM EDT Office Visit [address] [address] Name, MD Kiel [address] [place] [address] 08/20/2024 9:30 AM EDT Clinical Support [address] [address] Opal Steiner, MARINA documented as of this [...] documented as of this encounter Care Teams Records Administrator Relationship Specialty Start Date End Date Name, MD Kiel [address] [place] [address] PCP - General Family Medicine 07/15/15 Katlyn Rodriguez PharmD [address] [place] [address] Pharmacist Internal Medicine 10/08/22 Marta Ovalle Correction Officer [place] JailScanner Operator 05/25/23 documented as of this encounter
--- OUTSIDE RECORDS SUMMARY | 2024-06-18 08:35 | XMS_ITS | Encounter Summary ---
Author Organization [employer] Address [address] [facility] 7t [place] [address] Care Team Providers Care Tearer Name Role Phone Name, Kiel BAILEY Primary Care Provider [phone] Katlyn Rodriguez PharmD Unavailable [phone] Reason for Visit * Reason Onset Date Comments Reschedule 08/01/2023 Encounter Details Date Type Department Care Team ([facility] st Contact Info) Description 08/01/2023 Telephone [facility] MEDICINE [address] [place] [address] Name, MD Kiel [address] [place] [address] Reschedule Social History Tobacco Use Types Packs/Day [...] 08/01/2023 9:55 AM EDT Triage call with [employer] . Pt reports Covid + test this [...] 08/01/2023 9:04 AM EDT Patient cancelled todays SCARFER OPERATOR RV appt today. Pt's SCARFER OPERATOR appt has been rescheduled for chronic [...] AM EDT Tc from pt requesting r/s SCARFER OPERATOR appt, stated is sick and suspect is COVID documented in this encounter Plan of Treatment Upcoming Encounters Date Type Department Care Team (Late st Contact Info) Description 07/12/2024 9:30 AM EDT Medication Management [facility] MEDICINE [address] [place] [address] Katlyn Rodriguez, PharmD [address] [place] [address] 07/27/2024 10:00 AM EDT Office Visit [facility] MED[facility]INE [address] [place] [address] Name, MD Kiel [address] [place] [address] 08/20/2024 9:30 AM EDT Clinical Support [facility] MED[facility]INE [address] [place] [address] Opal Steiner, MARINA documented as of this [...] documented as of this encounter Care Teams Tearer Relationship Specialty Start Date End Date Name, MD Kiel [address] [place] [address] PCP - General Family Medicine 07/15/15 Puia, Katlyn, PharmD [address] [place] [address] Pharmacist Internal Medicine 10/08/22 Marta Ovalle Ski InstructorCyber Incident Responder 05/25/23 documented as of this encounter
--- OUTSIDE RECORDS SUMMARY | 2024-06-18 08:35 | XMS_ITS | Encounter Summary ---
Author Organization [employer] Address [address] [facility] 7t [place] [address] Care Team Providers Care Javascript Developer Name Role Phone Name, Kiel BAILEY Primary Care Provider [phone] Katlyn Rodriguez PharmD Unavailable [phone] Encounter Details Date Type Department Care Team ([facility] Contact Info) Description 03/12/[address] [facility] MED & PEDS [address] [place], [place] [phone] Millie Sawant LPN Social History Tobacco Use [...] Upcoming Encounters Date Type Department Care Team ([facility] Contact Info) Description 07/12/2024 9:30 AM EDT Medication Management [facility] [address] [place], [place] [phone] Katlyn Rodriguez, PharmD [address] [place], [place] [phone] 07/27/2024 10:00 AM EDT Office Visit [address] [address] Name, MD [facility] [place] [address] 08/20/2024 9:30 AM EDT Clinical Support [address] [address] Opal Steiner, MARINA documented as of this encounter Visit Diagnoses Not on filedocumented in this encounter Care Teams Javascript Developer Relationship Specialty Start Date End Date Name, [place] [address] PCP - General Family Medicine 07/15/15 Katlyn Rodriguez PharmD [address] [place] [address] Pharmacist Internal Medicine 10/08/22 Marta Ovalle Cattle RancherSee Wheeler 05/25/23 documented as of this encounter
--- OUTSIDE RECORDS SUMMARY | 2024-06-18 08:35 | XMS_ITS | Encounter Summary ---
Author Organization [employer] Address [address] [facility] 7t [place] [address] Care Team Providers Care Computer Systems Software Engineer Name Role Phone Name, Kiel BAILEY Primary Care Provider [phone] Katlyn Rodriguez PharmD Unavailable [phone] Reason for Visit * Reason Onset Date Comments Durable Medical Equipment 01/24/2023 Encounter Details Date Type Department Care Team ([facility] st Contact Info) Description 01/24/2023 Telephone [facility] MEDICINE [address] [place] [address] Name, MD Kiel [address] [place] [address] Durable Medical Equipment Social History Tobacco Use [...] to errol. Any questions, contact pt at [phone] documented in this encounter Plan of Treatment Upcoming Encounters Date Type Department Care Team (Late st Contact Info) Description 07/12/2024 9:30 AM EDT Medication Management [address] [address] Katlyn Rodriguez PharmD [address] [place] [address] 07/27/2024 10:00 AM EDT Office Visit [address] [address] Name, MD Kiel [address] [place] [address] 08/20/2024 9:30 AM EDT Clinical Support [address] [address] Opal Steiner, RN documented as of this [...] as of this encounter Care Teams Computer Systems Software Engineer Relationship Specialty Start Date End Date Name, MD Kiel [address] [place] [address] PCP - General Family Medicine 07/15/15 Katlyn Rodriguez, PharmD [address] [place] [address] Pharmacist Internal Medicine 10/08/22 Marta Ovalle Warehouse ConsultantPower Grader Operator 05/25/23 documented as of this encounter
--- OUTSIDE RECORDS SUMMARY | 2024-06-18 08:35 | XMS_ITS | Encounter Summary ---
Author Organization [employer] [facility] Address [address] [place] [address] 7t [place] [address] Care Team Providers Care Ring Attacher Name Role Phone Name, Kiel BAILEY Primary Care Provider [phone] Katlyn Rodriguez PharmD Unavailable [phone] Encounter Details Date Type Department Care Team ([facility] Contact Info) Description 07/01/2022 Abstract [facility] MEDICINE [address] [place] [address] Name, MD Kiel [address] [place] [address] Social History Tobacco Use Types Packs/Day Years [...] Team ([facility] Contact Info) Description 07/12/2024 9:30 AM EDT Medication Management [facility] MEDICINE [address] [place] [phone] Katlyn Rodriguez PharmD [address] [place] [address] 07/27/2024 10:00 AM EDT Office Visit [address] [address] Name, MD Kiel [address] [place] [address] 08/20/2024 9:30 AM EDT Clinical Support [address] [address] Opal Steiner, MARINA documented as of this encounter Visit Diagnoses Not on filedocumented in this encounter Care Teams Ring Attacher Relationship Specialty Start Date End Date Name, MD Kiel [address] [place] [address] PCP - General Family Medicine 07/15/15 Katlyn Rodriguez, PharmD [address] [place] [address] Pharmacist Internal Medicine 10/08/22 Marta Ovalle Maintenance Mechanic MillwrightPediatric Psychiatrist 05/25/23 documented as of this encounter
--- OUTSIDE RECORDS SUMMARY | 2024-06-18 08:35 | XMS_ITS | Clinical Summary ---
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 04/06/2024 7:11 PM EST Narrative 04/06/2024 7:13 PM EST ? [facility] ?[address] ?[place] [address] ? CT Scan Report ? Signed ? Patient: Sarita Puga ?MR#: [id number] ?? 92 ? : 1965 ?Acct:[id number] ? Age/Sex: 58 / F ?ADM Date: 04/06/24 ? Loc: HO.ED ? Attending Dr: ? Ordering Physician: Page Garcia DO ?? Date of Service: 04/06/24 ?? Procedure(s): CT abdomen pelvis w IV con ?? Accession Number(s): [id number] ? cc: Page Garcia DO; Name,Kiel BAILEY ? Report Number: ?? [id number]: Total DLP = 2421.00 mGy-cm ? CLINICAL [...] ? DD/ 10 ? TD/TT: 04/06/241910 ? Senior Quality Assurance Engineer: ? Procedure Note Donnupurinterpreter, Image - 04/06/[address] [place] [address] [address] Scan Report Signed Patient: Sarita Puga MMR#: [id number] 92 : 1965Acct:[id number] Age/Sex: 58 / FADM Date: 04/06/24 Loc: HO.ED Attending Dr: Ordering Physician: Page Garcia DO Date of Service: 04/06/24 Procedure(s): CT abdomen pelvis w IV con Accession Number(s): [id number] cc: Page Garcia DO; Name,Kiel BAILEY Report Number: [id number]: Total DLP = 2421.00 mGy-cm CLINICAL HISTORY: [...] in OV> 04/06/241911 DD/ 10 TD/TT: 04/06/241910 Senior Quality Assurance Engineer: [facility] External Provider IMG CT PROCEDURES Edited Result - Final * CT Cervical Spine w/o Contrast (04/06/2024 7:02 PM EST) Anatomical Region Laterality Modality Spine, C-spine Computed Tomogra phy 04/06/2024 7:02 PM EST Narrative 04/06/2024 7:04 PM EST ? [facility] ?[address] ?[place] [address] ? CT Scan Report ? Signed ? Patient: Sarita Puga ?MR#: [id number] ?? 92 ? : 1965 ?Acct:[id number] ? Age/Sex: 58 / F ?ADM Date: 04/06/24 ? Loc: HO.ED ? Attending Dr: ? Ordering Physician: Page Garcia DO ?? Date of Service: 04/06/24 ?? Procedure(s): CT cervical spine wo IV con ?? Accession Number(s): [id number] ? cc: Page Garcia DO; Kiel Shaffer MD ? Report Number: ?? [id number]: Total DLP = ?0.00 mGy-cm ? CLINICAL [...] ? DD/ 01 ? TD/TT: 04/06/241901 ? Senior Quality Assurance Engineer: ? Procedure Note Donotuseinterpreter, Image - 04/06/[address] [address] [address] Scan Report Signed Patient: Sarita Puga MMR#: [id number] 92 : 1965Acct:[id number] Age/Sex: 58 / FADM Date: 04/06/24 Loc: HO.ED Attending Dr: Ordering Physician: Page Garcia DO Date of Service: 04/06/24 Procedure(s): CT cervical spine wo IV con Accession Number(s): [id number] cc: Page Garcia DO; Name,Kiel BAILEY Report Number: [id number]: Total DLP = 0.00 mGy-cm CLINICAL HISTORY: [...] in OV> 04/06/241902 DD/ 01 TD/TT: 04/06/241901 Senior Quality Assurance Engineer: [facility] External Provider IMG CT PROCEDURES Edited Result - Final * XR Humerus Left (04/06/2024 2:32 PM EST) Anatomical Region Laterality Modality Upper Extremities, Humerus Left Radio graphic Imaging 04/06/2024 2:32 PM EST Narrative 04/06/2024 3:02 PM EST ? [facility] ?[address] ?[place] [address] ?XRay Report ? Signed ? Patient: Puga,Shilpi ?MR#: [id number] ?? 92 ? : 1965 ?Acct:[id number] ? Age/Sex: 58 / F ?ADM Date: 04/06/24 ? Loc: HO.ED ? Attending Dr: ? Ordering Physician: Page Garcia DO ?? Date of Service: 04/06/24 ?? Procedure(s): XR humerus LT ?? Accession Number(s): [id number] ? cc: Page Garcia DO; Name,Kiel BAILEY [...] DD/ 1432 ? TD/TT: 04/06/24 1446 ? Senior Quality Assurance Engineer: ? Procedure Note Jung Bañuelos - 04/06/[address] [address] XRay Report Signed Patient: Sarita Puga MMR#: [id number] 92 : 1965Acct:[id number] Age/Sex: 58 / FADM Date: 04/06/24 Loc: HO.ED Attending Dr: Ordering Physician: Page Garcia DO Date of Service: 04/06/24 Procedure(s): XR humerus LT Accession Number(s): [id number] cc: Page Garcia DO; Name,Kiel BAILEY EXAMINATION: [...] MD Signed By: <Electronically signed by Kenny Fernadnes MD in OV> 04/06/24 1459 DD/ 1432 TD/TT: 04/06/24 1446 Senior Quality Assurance Engineer: [facility] External Provider IMG XR PROCEDURES Edited Result - Final * (ABNORMAL) POCT HGB A1C (03/27/2024 10:50 AM EST) Pathologist [facility] Hemoglobin A1C 7.5(A) 4.0 - 6.0 % QC Media Lot # [id number] Lot# Expiration Date Blood 03/27/2024 10:5 0 AM EST Kiel Shaffer MD POINT OF CARE TEST ENTER/EDIT OR DERABLES Final Result * (ABNORMAL) Lipid Panel, Standard (10/25/2023 8:11 AM EDT) Triglycerides 266(H) <150 mg/dL [facility] Comment:Desirable Triglyceri de: less than 150 mg/dLBorderline High Triglyceride 150-199 mg/dLHigh Triglyceride: 200-499 mg/dLVery High Triglyceride: greater than or equal to 5OO mg/dL Cholesterol 206(H) <200 mg/dL [facility] Comment:Desirable Cholestero l: less than 200 mg/dLBorderline High Cholesterol: 200-239 mg/dLHigh Cholesterol: greater than 239 mg/dL LDL Cholesterol Calculated 104(H) <100 mg/dL [facility] Comment:Desirable LDL: less than 100 mg/dLNear Optimal/Above Optimal LDL: 110- 129 mg/dLBorderline High LDL: 130-159 mg/dLHigh LDL: 160-189 mg/dLVery High LDL: greater than or equal to 190 mg/dL HDL Cholesterol 49 >40 mg/dL [facility] Comment:Desirable HDL: great er than 40 mg/dL Note: This HDL assay may give artificially low results in patients with liver disease. 10/25/2023 8:11 AM EDT 10/25/2023 11:22 AM EDT us Kiel Name LAB BLOOD ORDERABLES Final Resul t Performing Organization Address City/State/[facility] Co de Phone Number [facility] [address] [place] [address] [phone] * BI Mammogram Screening Tomosynthesis Bilateral (06/03/2023 8:45 AM EDT) Anatomical Region Laterality Modality Breast Bilateral Mammography 06/03/2023 8:45 AM EDT Narrative 06/30/2023 10:24 PM EDT ? [facility] [place] ? [address] ?[place] [address] ? Mammography Report ? Signed ? Patient: Puga,Shilpi ?MR#: [id number] ?? 92 ? : 1965 ?Acct:[id number] ? Age/Sex: 57 / F ?ADM Date: 04/12/24 ? Loc: HO.MAMMO ? Attending : Kiel Shaffer MD ? Ordering Physician: Kiel Shaffer MD ?Results: 1Negative ? Date of Service: 06/03/23 ?Follow Up: 1 Year From Orig ?? inal Mammogram ? Procedure(s): MM tomosynthesis screening BI ?? Accession Number(s): [id number] ? cc: Deena,Kiel BAILEY ? EXAMINATION: ?? MM SCREENING DIGITAL BREAST TOMOSYNTHESIS, BILATERAL ? CLINICAL INFORMATION: ? Screening. Asymptomatic. ? COMPARISON: ?? Mammography: This study is compared with prior exams dating back to ?? 2016. ? TECHNIQUE: ?? Digital breast tomosynthesis is [...] 06/30/232219 ? DD/ 0845 ? TD/TT: ? Senior Quality Assurance Engineer: ? Procedure Note Donotuseinterpreter, Image - 06/30/2023 [place] [facility] [address] [place] [address] Mammography Report Signed Patient: Sarita Puga MMR#: [id number] 92 : 1965Acct:[id number] Age/Sex: 57 / FADM Date: 06/03/23 Loc: HO.MAMMO Attending Dr: Kiel Shaffer MD Ordering Physician: Kiel Shaffer MDResults: 1Negative Date of Service: 06/03/23Follow Up: 1 Year From Orig inal Mammogram Procedure(s): MM tomosynthesis screening BI Accession Number(s): [id number] cc: Kiel Shaffer MD EXAMINATION: MM SCREENING [...] MD in OV> 06/30/230 DD/ 0845 TD/TT: Senior Quality Assurance Engineer: Kiel Shaffer MD IM BI PROCEDURES Edited Result - Final * Albumin, Random Urine W/Creatinine (05/26/2023 8:27 AM EDT) Creatinine, Urine 185.88 mg/dL [facility] Microalbumin Urine 23.0 mg/L [facility] Microalbum Creatinine Ratio Ur 12.3 <30 ug/mg cr [facility] Comment:Albumin/Creatinine R atio Reference Ranges: Normal: < 30 ug/mg creatinine Microalbuminuria: 30 - 300 ug/mg creatinineClinical Albuminuria: > 300 ug/mg creatinine Urine (Urine, Random) 05/26/2023 8:27 AM EDT 05/26/2023 11:19 AM EDT us Kiel Shaffer MD LAB URINE ORDERABLES Final Resul t [facility] [address] [place] [phone] * Colonoscopy (07/01/2022 4:37 PM EDT) Colonoscopy Normal Normal Narrative [place] - 07/01/2022 4:37 PM EDT Recommended 5 year follow up ([facility] Provider HEALTH MAINTENANCE Final Result * Diabetes Eye Exam (05/26/2022) Eye Exam Normal Normal us Kiel Shaffer MD HEALTH MAINTENANCE Final Result from Last 3 Months or Most Recently Relevant to Health Maintenance Insurance [facility] [address] [place] [address] [place] [address] [place], [place] [address]HEALTH [employer] [place], [place], [place] Care Teams Diploma Medical Assistant Relationship Specialty Start Date End Date Name, MD Kiel [address] [place], [place] PCP - General Family Medicine 07/15/15 Katlyn Rodriguez PharmD [address] [place], [place] Pharmacist Internal Medicine 10/08/22 Marta Ovalle Food Preservation ScientistRap Artist 05/25/23
--- OUTSIDE RECORDS SUMMARY | 2024-06-18 08:35 | XMS_ITS | Encounter Summary ---
Author Organization [facility] Address [address] [place] [address] Care Team Providers Care Public Information Relations Manager Name Role Phone Name, Kiel BAILEY Primary Care Provider [phone] Encounter Details Date Type Department Care Team Description 09/10/2022 Social Work [facility] Oncology Services [address] [place] [address] Adina Archer, [facility] [...] filedocumented in this encounter Care Teams Public Information Relations Manager Relationship Specialty Start Date End Date Name, MD Kiel [address] [place] [address] [address] [place] [address] PCP - General Internal Medicine 04/17/18 documented as of this encounter
--- OUTSIDE RECORDS SUMMARY | 2024-06-18 08:36 | XMS_ITS | Encounter Summary ---
Author Organization [facility] Address [address] [facility] 7t [place] [address] Care Team Providers Care Animal Health Technician Name Role Phone Name, Kiel BAILEY Primary Care Provider [phone] Katlyn Rodriguez PharmD Unavailable [phone] Reason for Visit * Reason Onset Date Comments Appointment Request 02/29/2024 Encounter Details Date Type Department Care Team ([facility] Contact Info) Description 02/29/2024 Telephone [facility] MEDIC[facility] [address] [place], [place] [phone] Name, MD Kiel [address] [place] [address] Appointment Request Social History Tobacco Use Types [...] different date and time. Pt does speak maldivian so you will need an keg inspector. documented in this encounter Plan of Treatment Upcoming Encounters Date Type Department Care Team (Late st Contact Info) Description 07/12/2024 9:30 AM EDT Medication Management [address] [address] Katlyn Rodriguez, PharmD [address] [place] [address] 07/27/2024 10:00 AM EDT Office Visit [address] [address] Name, MD Kiel [address] [place] [address] 08/20/2024 9:30 AM EDT Clinical Support [address] [address] Opal Steiner, MARINA documented as of this [...] documented as of this encounter Care Teams Animal Health Technician Relationship Specialty Start Date End Date Name, MD Kiel [address] [place] [address] PCP - General Family Medicine 07/15/15 Puia, Katlyn, PharmD [address] [place] [address] Pharmacist Internal Medicine 10/08/22 Marta Ovalle Trapper AnimalNormalizer 05/25/23 documented as of this encounter
--- OUTSIDE RECORDS SUMMARY | 2024-06-18 08:36 | XMS_ITS | Encounter Summary ---
Author Organization [employer] Address [address] [facility] 7t [place] [address] Care Team Providers Care Site Acquisition Specialist Name Role Phone Name, Kiel BAILEY Primary Care Provider [phone] Katlyn Rodriguez PharmD Unavailable [phone] Reason for Visit * Reason Comments Med Refill Encounter Details Date Type Department Care Team ([facility] st Contact Info) Description 06/08/2024 Refill [facility] [address] [place], [place] [phone] Name, MD Kiel [address] [place] [address] Chronic pain syndrome Social History Tobacco Use [...] Encounter - Renetta Power RN - 06/15/2024 9:29 AM EDT [facility] checked today, rx oxycodone 10 mg last sold on 05/18 wit 56 tabs ( 28 days supply). Pt is due for refill today and medication pended to PCP for review. * Telephone Encounter - Renetta Power RN - 06/12/2024 9:12 AM EDT [facility] checked today, rx oxycodone 10 mg last sold on 05/18 wit 56 tabs ( 28 days supply). Pt will not be due for refill until 06/15/24. Will postpone to blue team nurses box to follow up on that day and pend to PCP for review. documented in this encounter Plan of Treatment Upcoming Encounters Date Type Department Care Team ([facility] st Contact Info) Description 07/12/2024 9:30 AM EDT Medication Management [facility] [address] [place] [address] Puia, Katlyn, PharmD Jai [facility] [place] [address] 07/27/2024 10:00 AM EDT Office Visit [address] [address] [place] [address] 08/20/2024 9:30 AM EDT Clinical Support [address] [address] Opal Steiner, MARINA documented as of this [...] documented as of this encounter Care Teams Site Acquisition Specialist Relationship Specialty Start Date End [place] [address] PCP - General Family Medicine 07/15/15 Puia, Katlyn, [place] [address] Pharmacist Internal Medicine 10/08/22 Marta Ovalle Stamper BlockerCigar Tobacco Rehandler 05/25/23 documented as of this encounter
--- OUTSIDE RECORDS SUMMARY | 2024-06-18 08:36 | XMS_ITS | Encounter Summary ---
Author Organization [employer] Address [address] [facility] [address]t [place] [address] Care Team Providers Care Mobile Sales Consultant Name Role Phone Name, Kiel BAILEY Primary Care Provider [phone] Katlyn Rodriguez PharmD Unavailable [phone] Reason for Visit * Reason Comments Med Refill Encounter Details Date Type Department Care Team ([facility] st Contact Info) Description 06/12/2024 Refill [facility] [address] [place] [address] Katlyn Rodriguez, PharmD [address] [place] [address] Type 2 diabetes mellitus with other specified complication, with long-term current use of insulin ([facility]) Social History Tobacco Use Types Packs/Day Years [...] Description 07/12/2024 9:30 AM EDT Medication Management [address] [address] Katlyn Rodriguez PharmD [address] [place] [address] 07/27/2024 10:00 AM EDT Office Visit [address] [address] Name, MD Kiel [address] [place] [address] 08/20/2024 9:30 AM EDT Clinical Support [address] [address] Opal Steiner RN documented as of this encounter Goals Goal Patient Goal Type Associated Problems Recent Progress Patient-Stated? Author Record your blood pressure once per day Blood Pressure No Puia, Katlyn, PharmD Blood Pressure < 140/90 Blood Pressure 126/69(2024 8:44 AM EDT) No PuiaReidKatlyn, PharmD Hemoglobin A1c < 7 Result Component 7.5( 5 10:50 AM EST) No Katlyn Rodriguez PharmD Record your blood sugar as directed Result Component No Katlyn Rodriguez PharmD documented as of this encounter Visit Diagnoses Diagnosis Type 2 diabetes mellitus with other specified complication, with long-term current use of insulin ([facility]) documented in this encounter Additional Health Concerns Assessment Noted Time PHQ-9 Depression Total Score: 4 09/02/19 24 10:30 AM EDT documented as of this encounter Care Teams Mobile Sales Consultant Relationship Specialty Start Date End Date Name, MD Kiel [address] [place] [address] PCP - General Family Medicine 07/15/15 Katlyn Rodriguez PharmD [address] [place] [address] Pharmacist Internal Medicine 10/08/22 Marta Ovalle Core DipperTire Sorter 05/25/23 documented as of this encounter
[2024-06-18 11:54] LABS: Alanine Aminotransferase 31 U/L (0-31); Alkaline Phosphatase 72 U/L (39-117); Aspartate Amino Transferase 22 U/L (5-31); Bilirubin Direct 0.1 mg/dL (0.0-0.5); Bilirubin Total 0.3 mg/dL (0.0-1.0); Cholesterol 185 mg/dL (<200); HDL Cholesterol 45 mg/dL (>40); LDL Cholesterol Calculated 109 mg/dL (<100); Total Protein 6.5 g/dL (6.5-8.0); Triglycerides 156 mg/dL (<150)
[2024-06-18 12:07] LABS: Reflex LDLD? No
== END 2024-06-18 08:18 | disposition home or self-care (01) ==
LOC: HO.HHCL 08:17
PROVIDERS: Visit Provider Internal Medicine Geriatric Medicine
DX: E11.69 Type 2 diabetes mellitus with other specified complication (principal); Z79.4 Long term (current) use of insulin; E78.1 Pure hyperglyceridemia
CPT/HCPCS: 36415; 80061; 80076

== ENCOUNTER 2024-06-18 12:47 | Inpatient (IN) | payer MEDICAID, SELFPAY ==
[2024-06-18] VITALS (9 sets, daily range): BP systolic 103–119; BP diastolic 54–86; PULSE 61–83; RESP 12–22; TEMP 36.1–37.1; O2SAT 96–99; BMI 42.5; BMI 40.8
--- NOTE | ~2024-06-18 | CT_ITS ---
EXAMINATION: CTA NECK WITH CONTRAST (STROKE) CTA BRAIN WITH CONTRAST (STROKE) CLINICAL INFORMATION: Left facial weakness. Concerning stroke. COMPARISON: Correlated to CT dated April 06, 2024 and June 18, 2024. TECHNIQUE: CTA of the head and neck was performed in the axial plane from the mediastinum to the skull vertex using 70 mL Omnipaque 350 intravenous contrast. Additional reformatted multiplanar images including maximum intensity projection MIP images are generated on the CT workstation. This CT examination was performed using dose optimization techniques as appropriate, variously including the following: *Automated exposure control *Adjustment of mA and/or kV according to patient size (this includes techniques or standardized protocols for targeted exams where dose is matched to indication/reason for exam; i.e. extremities or head) *Use of iterative reconstruction technique DLP: 673 mGy centimeter. FINDINGS: The degree of stenosis determined by criteria similar to NASCET. Chest CTA: No focal stenosis or intimal flap or abnormal diameter. Calcified plaques in the inferior wall of the aortic arch. Neck CTA: Right CCA: Normal patency. No focal stenosis. No intimal flap. Right ICA: No plaque. Normal patency. No focal stenosis. No intimal flap. Left CCA: Normal patency. No focal stenosis. No intimal flap. Left ICA: Calcified plaque. Normal patency. No focal stenosis. No intimal flap. V1/V2 segment: Normal patency. No focal stenosis. No intimal flap. Tortuosity in the origin. Codominant vertebral arteries.. Brain CTA: Anterior cerebral circulation: ICAs: Normal patency. No focal stenosis. No abrupt cut off. MCA's: Normal patency. No focal stenosis. No abrupt cut off. Bifurcation/trifurcation demonstrated no contour irregularity. ACAs: Normal patency. No focal stenosis. No abrupt cut off. Ophthalmic arteries, Normal patency. No contour irregularity at the origin. Anterior communicating artery is not fully depicted. Posterior communicating arteries are not fully depicted. There is a probable small patent right artery. Posterior cerebral circulation: V3/V4 segments: Normal patency. No focal stenosis. No intimal flap. Right anterior inferior cerebellar artery/posterior inferior cerebral artery common trunk. Left posterior inferior cerebral artery is patent. Basilar artery is patent without focal stenosis or intimal flap. Superior cerebellar arteries are patent. training personnel supervisor: Normal patency. No focal stenosis. No abrupt cut off. Ancillary findings: Main cerebral venous sinuses are patent without intraluminal filling defects. CT/CT angio head neck STROKE IMPRESSION: No main cerebral artery occlusion or embolus. No high degree stenosis. No dissection. Calcified plaque without high degree stenosis, left ICA. No aneurysm, main cerebral artery This critical test result is communicated to: Emergency physician Dr. Lacy Saucedo at 1:30 PM on June 10, 2024. Electronically signed by: Felix Fall MD 06/18/2024 01:46 PM EDT
--- NOTE | ~2024-06-18 | CT_ITS ---
EXAMINATION: CT HEAD WITHOUT CONTRAST (STROKE PROTOCOL) CLINICAL INFORMATION: Left-sided weakness concerning stroke. COMPARISON: April 06, 2024. TECHNIQUE: Contiguous axial imaging was performed from the skull base to vertex without intravenous administration of contrast. This CT examination was performed using dose optimization techniques as appropriate, variously including the following: *Automated exposure control *Adjustment of mA and/or kV according to patient size (this includes techniques or standardized protocols for targeted exams where dose is matched to indication/reason for exam; i.e. extremities or head) *Use of iterative reconstruction technique DLP: 634 mGy centimeter. FINDINGS: There is a 1 cm subtle hyperintense attenuation measuring 46 Hounsfield units centered in the right cerebral peduncle with the perilesional hypodensity involving the right mid brain and slightly extending into the inferior right thalamus. No midline shift, hydrocephalus or herniation. Sellar/suprasellar region demonstrated no gross masses. Craniocervical junction is intact. Mucosal thickening, left maxillary sinus. Tympanic cavities and mastoid air cells are aerated. CT/CT head for STROKE IMPRESSION: Focal 1 cm hypodensity right cerebral peduncle/midbrain with perilesional vasogenic edema. Consider subacute hemorrhage. Underlying neoplasm seems less likely. Recommend further imaging evaluation with IV contrast enhanced MRI brain. This critical result was discussed with emergency physician Dr. Lacy Saucedo at 1:33 PM hours on 06/18/2024. It was ascertained that the content and urgency of the report was understood at the time of direct communication. Electronically signed by: Felix Fall MD 06/18/2024 01:35 PM EDT
--- NOTE | ~2024-06-18 | MR_ITS ---
CLINICAL HISTORY: ?subacute hemorrhagic CVA --- Additional Notes or Special Instructions: Allergic to barium sulfateSevere claustrophobic pt. Multiple reminders given, tried scanning Blades as possible, unable to repeat. Best exam obtained MR Brain with and without gadolinium Comparison: CT/DC/SR - CT HEAD FOR STROKE - 06/18/24 12:57 EDT Findings: The ventricles and subarachnoid spaces are normal in size and the ventricles are normal in position with no midline shift or herniation. No intra-axial or extra-axial hemorrhage is demonstrated. The right cerebral peduncle is larger than the left and demonstrates abnormal signal which is hypointense on precontrast T1 weighted images, hyperintense on T2 weighted and FLAIR sequences with some restricted diffusion. Postcontrast administration there is abnormal enhancement measuring 2 cm x 1 cm x 1.5 cm with adjacent mild edema. Differential considerations include subacute infarct versus neoplasm. Otherwise brain parenchyma is normal in signal intensity. The midline structures are grossly normal. Flow voids are maintained within the major vessels of the base of the brain. The orbits are normal. Mild mucosal thickening in left maxillary sinus. No focal bone lesion. IMPRESSION: 1. Right cerebral peduncle is enlarged/swollen with abnormal signal with some restricted diffusion and masslike enhancement measuring 2 cm x 1 cm x 1.5 cm with mild surrounding nonenhancing edema. Differential considerations include subacute infarct versus neoplasm which could be malignant. A short term follow-up brain MRI should be considered to evaluate for possible evolution of subacute ischemia and differentiate between ischemia in neoplasm. Neurosurgical consultation is recommended. This document has been electronically signed by: Jennifer Madison MD on 06/18/2024 20:47:14
[2024-06-18 12:54] LABS: Glucose, Whole Blood 227 mg/dL (60-115)
--- NOTE | 2024-06-18 13:04 | ECG_ITS ---
Test Reason : stroke Blood Pressure : */* mmHG Vent. Rate : 75 BPM Atrial Rate : 75 BPM P-R Int : 158 ms QRS Dur : 86 ms QT Int : 376 ms P-R-T Axes : 43 -11 14 degrees QTcB Int : 419 ms Normal sinus rhythm Normal ECG When compared with ECG of 22-Oct-2021 09:08, No significant change was found Referred By: Lacy Saucedo Electronically Signed By: Fercho Torres
--- NOTE | 2024-06-18 13:16 | ED_ITS ---
HPI - Neuro Symptoms/Deficit General Chief Complaint: Stroke Stated Complaint: ?STROKE,L WEAK,LKWT 7PM,-THIN,FROM URGENT CARE Time Seen by Provider: 06/18/24 13:03 Source: patient, EMS and interpreter translator Mode of arrival: EMS Limitations: no limitations History of Present Illness ED Provider: DR. Saucedo HPI Narrative: 58-year-old female came in as a stroke alert, patient woke up at 03:00 with left-sided headache described as the worst headache in her life, patient also is reporting left facial numbness with left facial weakness No visual disturbance, no upper/lower extremities weakness, no numbness. No chest pain, no shortness of breath, no abdominal pain. Related Data Home Medications ?Medication ?Instructions ?Recorded ?Confirmed montelukast 10 mg tablet 10 mg PO BEDTIME 02/13/20 02/20/24 (Singulair) alcohol swabs (Alcohol Prep Pads) pad topical BID 12/05/20 02/20/24 insulin lispro 200 unit/mL (3 mL) unit subcut 12/05/20 02/20/24 subcutaneous pen (Humalog KwikPen U-200 Insulin) paroxetine HCl 40 mg tablet 40 mg PO BEDTIME 12/05/20 02/20/24 pen needle, diabetic 32 gauge x #50 ea 12/05/20 02/20/24 (Pentips Pen Needle) nortriptyline 10 mg capsule 10 mg PO BEDTIME 05/21/21 02/20/24 insulin glargine 100 unit/mL (3 28 unit subcut DAILY 05/26/21 02/20/24 mL) subcutaneous pen (Lantus Solostar U-100 Insulin) multivitamin (One Daily 1 tab PO QAM 05/26/21 02/20/24 Multivitamin tablet) buspirone 15 mg tablet 15 mg PO BID 04/21/22 02/20/24 gabapentin 600 mg tablet 300 mg PO TID 04/21/22 02/20/24 haloperidol 1 mg tablet 1 mg PO BEDTIME 04/21/22 02/20/24 lidocaine 5 % topical patch 1 patch topical DAILY 04/21/22 02/20/24 metoprolol succinate 25 mg 25 mg PO DAILY 04/21/22 02/20/24 tablet,extended release 24 hr oxcarbazepine 300 mg tablet 450 mg PO BID 04/21/22 02/20/24 sertraline 100 mg tablet 100 mg PO DAILY 04/21/22 02/20/24 clonidine HCl 0.1 mg tablet 0.1 mg PO BEDTIME 07/08/22 02/20/24 dulaglutide 1.5 mg/0.5 mL 3 mg subcut QWEEK 07/08/22 02/20/24 subcutaneous pen injector (Trulicity) aspirin 81 mg chewable tablet 1 tab PO QPM 01/05/23 02/20/24 atorvastatin 80 mg tablet 80 mg PO QPM 01/05/23 02/20/24 metformin 500 mg tablet,extended 500 mg PO QPM 01/05/23 02/20/24 release 24 hr Previous Rx's ?Medication ?Instructions ?Recorded polyethylene glycol 3350 17 17 g PO DAILY #510 grams 05/05/22 gram/dose oral powder (Miralax) cetirizine 10 mg tablet (Zyrtec) 10 mg PO DAILY PRN allergy 06/16/22 symptoms 14 days #14 tabs linaclotide 290 mcg capsule 290 mcg PO QAM #30 caps 11/23/22 (Linzess) albuterol sulfate 90 mcg/actuation 2 puff PO Q4-6H PRN for dyspnea #1 11/26/22 aerosol inhaler (ProAir HFA) ea esomeprazole magnesium 40 mg 40 mg PO BID 90 days #180 caps 01/19/23 capsule,delayed release (Nexium) ondansetron 4 mg disintegrating 4 mg PO DAILY PRN nausea and 01/19/23 tablet vomiting #20 tabs sucralfate 1 gram tablet 1 g PO BEDTIME #90 tabs 02/02/23 albuterol sulfate 2.5 mg/3 mL 2.5 mg (3 mL) inhalation Q4-6H PRN 03/22/23 (0.083 %) solution for nebulization shortness of breath or wheezing 30 days #180 mL pyridoxine (vitamin B6) 100 mg 100 mg PO DAILY 90 days #90 tabs 11/30/23 tablet ipratropium 20 mcg-albuterol 100 1 puff PO Q6H #4 grams 01/25/24 mcg/actuation mist for inhalation (Combivent Respimat) fluticasone propionate 115 2 puff inhalation Q12H ASTHMA/COPD 02/17/24 mcg-salmeterol 21 mcg/actuation 30 days #12 grams HFA inhaler (Advair HFA) doxycycline hyclate 100 mg tablet 100 mg PO BID #10 tabs 03/30/24 ibuprofen 600 mg tablet 600 mg PO Q6H PRN fever or pain 03/30/24 #30 tabs metronidazole 500 mg tablet 500 mg PO BID #10 tabs 03/30/24 acetaminophen 500 mg tablet 500 mg PO QID PRN pain #14 tabs 04/06/24 cyclobenzaprine 10 mg tablet 10 mg PO TID PRN muscle spasm #10 04/06/24 tabs ibuprofen 600 mg tablet 600 mg PO Q8H PRN pain #14 tabs 04/06/24 Allergies Allergy/AdvReac Type Severity Reaction Status Date / Time penicillin G [Penicillin G] Allergy Mild SWELLING Verified 06/18/24 12:56 barium sulfate Allergy Unknown HIVES Verified 06/18/24 12:56 [ORAL CONTRAST] cephalexin Allergy Unknown Unknown Verified 06/18/24 12:56 Review of Systems 2 Review of Systems: All other systems are reviewed and are negative Constitutional: Reports as per HPI and Reports no additional constitutional complaints Eyes: Reports as per HPI and Reports no additional eye complaints Reports system reviewed and no additional complaints, except as documented Cardiovascular: Reports as per HPI and Reports no additional cardiovascular complaints Respiratory: Reports as per HPI and Reports no additional respiratory complaints Gastrointestinal: Reports as per HPI and Reports no additional gastrointestinal complaints Genitourinary: Reports no additional female genitourinary complaints Musculoskeletal: Reports no additional musculoskeletal complaints Skin/Breast: Reports system reviewed and no additional complaints, except as docu Psychiatric: Reports no additional psychiatric complaints Endocrine: Reports no additional endocrine complaints Hematologic/Lymphatic: Reports no additional hematologic/lymphatic complaints Allergic/Immunologic: Reports no additional allergic/immunologic complaints Reports system reviewed and no additional complaints, except as documented and Reports Abnormal speech present [facility] Past Medical History Medical History Exposure to rabies Lymphoma Restrictive lung disease secondary to obesity COPD (chronic obstructive pulmonary disease) Nocturnal hypoxemia DRE (obstructive sleep apnea) Cough Nicotine dependence, cigarettes, uncomplicated Allergic rhinitis Morbid obesity Hyperlipidemia GERD (gastroesophageal reflux disease) Tubular adenoma Chronic idiopathic constipation IBS (irritable bowel syndrome) Back pain Depression Surgical History History of total right knee replacement (TKR) History of appendectomy (~1978) History of (~1986) History of hysterectomy (~1995) History of lithotripsy (~2018) History of carpal tunnel surgery of right wrist (~2020) History of colonoscopy History of esophagogastroduodenoscopy (EGD) Family History Family History Mother Diabetes Heart muscle disorder caused by another medical condition Father Diabetes Epilepsy Sister No problems noted. Sister No problems noted. Sister No problems noted. Sister No problems noted. Sister No problems noted. Brother No problems noted. Brother No problems noted. Brother No problems noted. Brother No problems noted. Brother No problems noted. Brother No problems noted. Daughter No problems noted. Daughter No problems noted. Son No problems noted. Son No problems noted. Son No problems noted. Social History Social History Are you a primary director day care center to a significant other at home: No Do you presently have visiting nurse or other home services: No Alcohol intake: current Alcohol intake frequency: a few times a week Patient Tobacco Use Status: Current everyday Tobacco user Cigarette Packs Per Day: 1 Years Smoked: (onset 13yo, x 42yrs, max 2ppd, now 1/2ppd - 30PYH) Smoked in Last 30 Days: Yes Use of substances other than those prescribed or required for medical reasons: Yes Substance Use Type: Marijuana Substance Use Frequency: Chronic Longstanding Advance Directives: No Advance Directives Information Provided: Yes Current occupational status: disabled Current occupation: rt handed Physical Exam 2 Vital Signs: Vital Signs: Last Vital Signs Temp 98.6 F 06/18/24 14:00 Pulse 64 06/18/24 14:00 Resp 20 06/18/24 14:00 BP 110/61 06/18/24 14:00 Pulse Ox 99 06/18/24 14:00 O2 Del Method Room Air 06/18/24 14:00 BMI result Body Mass Index 42.5 Vital signs have been reviewed and appear to be correct. Blood pressure elevated. Heart rate normal. Respiratory rate normal. Temperature normal. Oxygen saturation normal. Appearance: Alert. Oriented X3. No acute distress. Head: Normal external exam. Normocephalic. Atraumatic. No Quinones signs noted. No raccoon eyes noted Eyes: PERRLA. EOMI. Conjunctiva and sclera normal. Eyelids normal. ENT: TM's Normal. Pharynx normal. Uvula midline. Moist mucous membranes. No trismus noted. No drooling noted. No muffled voice noted. Neck: Normal inspection. Neck supple. FROM. No adenopathy. Thyroid Normal. No meningeal signs. No neck mass noted. CVS: Normal heart rate and rhythm. Heart sound normal. No murmurs noted. Pulses normal throughout. Respiratory: No respiratory distress. Painless inspiration. Breath sounds normal. No wheezes/rales/rhonchi noted. Chest nontender. No accessory muscle usage noted or decreased air movement noted. Abdomen: Soft and nontender. Bowel sounds normal in all 4 quadrants. No distention noted. No organomegaly noted. No visible injury noted. Back: No CVA tenderness. Full range of motion noted. Skin: Skin warm and dry. Normal skin color. Normal skin turgor. No rashes/lesions/lacerations noted. Extremities: No lower extremity edema. Extremities exhibit normal range of motion. Extremities nontender. Neuro: Oriented X 3. Left facial weakness, decreased left facial light touch sensation. No motor deficit. No sensory deficit. Reflexes normal. Course Reevaluation(s) Reevaluation #1: 58-year-old female came in with a sudden acute onset of left-sided headache with left facial weakness, CT head is showing less than 1 cm right midbrain hypodensity could represent subacute bleed, patient clinically reports no falls, no head trauma, no aneurysm was detected on the CT 8, case discussed with Dr. Villaseñor. Patient is not a candidate for TNK patient's late presentation to the hospital and questionable blood on the CT. Patient will be admitted to our hospital for further inpatient MRI and Neurology follow-up. Analgesia for pain control. Time: 14:23 Medications Administered Generic Name Dose Route Start Last Admin Trade Name Freq PRN Reason Stop Dose Admin Lactated Ringer's 1,000 mls @ 999 mls/hr 06/18/24 13:30 06/18/24 13:39 Lr IV 06/18/24 14:30 999 mls/hr .Q1H1M CLAUDETTE Administration Discontinued Medications Generic Name Dose Route Start Last Admin Trade Name José Miguel PRN Reason Stop Dose Admin Iohexol 100 ml 06/18/24 13:21 06/18/24 13:21 Iohexol 350 Mg/Ml 100 Ml Infus..Btl IV 06/18/24 13:22 70 ml ONCE ONE Administration Morphine Sulfate 2 mg 06/18/24 13:21 06/18/24 13:38 Morphine Sulfate 2 Mg/Ml Cartridge IVPUSH 06/18/24 13:22 2 mg ONCE ONE Administration Protocol Medical Decision Making Differential Diagnosis Differential Diagnoses: The differential diagnosis associated with the presentation includes (Hemorrhagic stroke, ischemic stroke, complex migraine, electrolyte derangement, severe anemia.) Admission/Observation Consideration of admission/observation: Escalation of care including admission/observation considered Consult Healthcare Provider Management of the patient was discussed with: Hospitalist (Dr. Cross) and Philosophy Specialist (Dr. Villaseñor) Lab Data MDM Lab Attestation statement: I reviewed the patient's lab results. 06/18/24 13:18 06/18/24 13:18 Labs: Lab Results 06/18/24 06/18/24 Range/Units 12:50 13:18 WBC 5.6 (4.8-10.8) X10*3/uL RBC 4.40 (4.20-5.50) X10*6/uL Hgb 12.2 (12.0-16.0) g/dl Hct 38.2 (37.0-47.0) % MCV 86.8 (80.0-98.0) fL MCH 27.7 (27.0-33.0) pg MCHC 31.9 (31.0-35.0) g/dl RDW 13.7 (11.0-16.0) % Plt Count 129 L (160-400) X10*3/uL MPV 12.4 H (9.4-12.3) fL Immature Gran % (Auto) 0.4 (0.0-0.4) % Neut % (Auto) 61.4 (45-73) % Lymph % (Auto) 29.7 (20-40) % Beadle % (Auto) 6.4 (2-11) % Eos % (Auto) 1.4 (0-4) % Baso % (Auto) 0.7 (0-2) % Lymph # (Auto) 1.7 (1.2-4.9) X10*3/uL Beadle # (Auto) 0.4 (0.1-1.2) X10*3/uL Eos # (Auto) 0.1 (0.0-0.4) X10*3/uL Baso # (Auto) 0.0 (0.0-0.2) X10*3/uL Abs Immat Gran (auto) 0.02 (0.00-0.03) X10*3/uL Absolute Neuts (auto) 3.5 (2.0-8.3) x10*3/uL Absolute Nucleated RBC 0.000 (0.0-0.012) X10*3/uL Nucleated RBC % (auto) 0.0 (0.0-0.2) /100WBC PT 11.8 (10.9-12.4) SEC INR 1.0 (0.9-1.1) APTT 31.1 (26.0-36.8) SEC Sodium 138 (135-145) mmol/L Potassium 3.7 (3.3-5.1) mmol/L Chloride 104 (96-108) mmol/L Carbon Dioxide 27 (22-29) mmol/L Anion Gap 11 L (12-20) BUN 14 (9-16) mg/dL Creatinine 0.60 (0.5-1.4) mg/dL Estim Creat Clear Calc 120.9 Estimated GFR > 60 POC Glucose 227 H (60-115) mg/dL Random Glucose 217 H (60-115) mg/dL Calcium 9.2 (8.4-10.2) mg/dL Troponin I High Sens < 2.7 (<3.5-17.0) ng/L Triglycerides 205 H (<150) mg/dL Cholesterol 161 (<200) mg/dL LDL Cholesterol, Calc 83 (<100) mg/dL HDL Cholesterol 37 L (>40) mg/dL Independent Interpretation I performed an independent interpretation of an: CT Scan (Head/CTA head and neck:MPRESSION: No main cerebral artery occlusion or embolus. No high degree stenosis. No dissection. Calcified plaque without high degree stenosis, left ICA. No aneurysm, main cerebral artery ) Radiology Impression Discussion of test interpretation with radiology: I have reviewed the radiologist's reading. NIH Stroke Scale Time: 13:38 Level of Consciousness: Alert Level of Consciousness Questions: Answers both questions correctly Level of Consciousness Commands: Performs both tasks correctly Best Gaze: Normal Visual: No visual loss Facial Palsy: Partial paralysis Motor Arm (Right): No drift Motor Arm (Left): No drift Motor Leg (Right): No drift Motor Leg (Left): No drift Limb Ataxia: Absent Sensory: Mild to moderate sensory loss Best Language: No aphasia Dysarthia: Normal Extinction and Inattention: No abnormality Score: 3 Discharge Plan Discharge Clinical Impression: Acute CVA (cerebrovascular accident) Patient Disposition: Admitted As Inpatient Print Language: Luxembourger
[2024-06-18] MEDS: iohexoL 350 MG/ML 100 ML INFUS..BTL IV (13:21)
[2024-06-18 13:23] LABS: MANUAL DIFF FLAG NO
[2024-06-18 13:29] LABS: Basophils Percent Auto 0.7 % (0-2); Eosinophils Absolute Auto 0.1 X10*3/uL (0.0-0.4); Eosinophils Percent Auto 1.4 % (0-4); Hematocrit 38.2 % (37.0-47.0); Hemoglobin 12.2 g/dl (12.0-16.0); Imm Gran Abs Auto 0.02 X10*3/uL (0.00-0.03); Imm Gran Pct Auto 0.4 % (0.0-0.4); Lymphocytes Absolute Auto 1.7 X10*3/uL (1.2-4.9); Lymphocytes Percent Auto 29.7 % (20-40); Mean Corpuscular HGB Conc 31.9 g/dl (31.0-35.0); Mean Corpuscular Hemoglobin 27.7 pg (27.0-33.0); Mean Corpuscular Volume 86.8 fL (80.0-98.0); Mean Platelet Volume 12.4 fL (9.4-12.3); Monocytes Absolute Auto 0.4 X10*3/uL (0.1-1.2); Monocytes Percent Auto 6.4 % (2-11); Neutrophils Absolute Auto 3.5 x10*3/uL (2.0-8.3); Neutrophils Percent Auto 61.4 % (45-73); Platelet Count 129 X10*3/uL (160-400); Red Cell Distribution Width 13.7 % (11.0-16.0); White Blood Count 5.6 X10*3/uL (4.8-10.8)
[2024-06-18] MEDS: Morphine Sulfate 2 MG/ML CARTRIDGE IVPUSH (13:38)
[2024-06-18] MEDS: Lactated Ringers 1,000 ML 999 ML IV (13:39)
[2024-06-18 13:41] LABS: Prothrombin Time 11.8 SEC (10.9-12.4)
--- NOTE | 2024-06-18 13:43 | PC.NURSE ---
Patient brought in by ems from [facility]. Patient reports waking up at 3am with left sided head pain, last known well last night at 7pm. Patient reports 10/10 left sided headache with numbness to nose and left side of face. Hand grasps strong and equal, able to raise both legs. PERRLA. smile with left sided facial drop noted , provider aware
[2024-06-18 13:44] LABS: Anion Gap 11 (12-20); Blood Urea Nitrogen 14 mg/dL (9-16); Calcium 9.2 mg/dL (8.4-10.2); Carbon Dioxide 27 mmol/L (22-29); Chloride 104 mmol/L (96-108); Cholesterol 161 mg/dL (<200); Creatinine Clr Calc Pharmacy 120.9; Estimated Glomerular Filt Rate > 60; Glucose Random 217 mg/dL (60-115); HDL Cholesterol 37 mg/dL (>40); LDL Cholesterol Calculated 83 mg/dL (<100); Partial Thromboplastin Time 31.1 SEC (26.0-36.8); Potassium 3.7 mmol/L (3.3-5.1); Sodium 138 mmol/L (135-145); Triglycerides 205 mg/dL (<150)
[2024-06-18 13:54] LABS: Troponin-I High Sensitivity < 2.7 ng/L (<3.5-17.0)
[2024-06-18 14:16] LABS: Stroke Lab Use COMPLETE
[2024-06-18] MEDS: HYDROmorphone HCl 1 MG/ML SYRINGE IVPUSH ×2 (14:39→23:06)
--- NOTE | 2024-06-18 15:02 | MHC.STROKE ---
Met with patient in room 20. Pt awake, alert and oriented x 4. [place] speaking. icu tech utilized for education No unilateral weakness noted. Pt reports left sided facial tingling/numbness. Reports that this started when she woke up at 0300 today. Small bleed noted on head CT. Dr. Villaseñor consulted. Due to the size of the bleed and the minimal symptoms, plan is to keep patient here at [facility]. Daughter and patient agreeable to plan. Pt wanted to go home but educated regarding the importance of staying for monitoring. Pt agreeable. Stroke Education provided. Pamphlet given Risk factors reviewed/discussed including medical history, medications, diet, activity, and social history. Plan is for MRI. Will continue to assist as needed.
--- NOTE | 2024-06-18 15:09 | P.HPHOSP_ITS ---
History of Present Illness Date of Service: 06/18/24 Chief Complaint: Headache 58-year-old female awoke this morning at 03:00 with left-sided headache along with left facial numbness and weakness. She states this is the worst headache of her life . She complains of no other weakness or deficit. CAT scan in the emergency room questionable for 1 cm hyperintense attenuation right cerebral peduncle question subacute hemorrhage. Neurology phone consulted and recommended MRI for further delineation. Review of Systems 2 Review of Systems: Denies chest pain Denies shortness of breath Denies nausea vomiting diarrhea Denies fever chills [facility] Medical History Exposure to rabies Lymphoma Restrictive lung disease secondary to obesity COPD (chronic obstructive pulmonary disease) Nocturnal hypoxemia DRE (obstructive sleep apnea) Cough Nicotine dependence, cigarettes, uncomplicated Allergic rhinitis Morbid obesity Hyperlipidemia GERD (gastroesophageal reflux disease) Tubular adenoma Chronic idiopathic constipation IBS (irritable bowel syndrome) Back pain Depression Family History Mother Diabetes Heart muscle disorder caused by another medical condition Father Diabetes Epilepsy Sister No problems noted. Sister No problems noted. Sister No problems noted. Sister No problems noted. Sister No problems noted. Brother No problems noted. Brother No problems noted. Brother No problems noted. Brother No problems noted. Brother No problems noted. Brother No problems noted. Daughter No problems noted. Daughter No problems noted. Son No problems noted. Son No problems noted. Son No problems noted. Surgical History History of total right knee replacement (TKR) History of appendectomy (~1978) History of (~1986) History of hysterectomy (~1995) History of lithotripsy (~2018) History of carpal tunnel surgery of right wrist (~2020) History of colonoscopy History of esophagogastroduodenoscopy (EGD) Social History Are you a primary child care sitter to a significant other at home: No Do you presently have visiting nurse or other home services: No Alcohol intake: current Alcohol intake frequency: a few times a week Patient Tobacco Use Status: Current everyday Tobacco user Cigarette Packs Per Day: 1 Years Smoked: (onset 13yo, x 42yrs, max 2ppd, now 1/2ppd - 30PYH) Smoked in Last 30 Days: Yes Use of substances other than those prescribed or required for medical reasons: Yes Substance Use Type: Marijuana Substance Use Frequency: Chronic Longstanding Advance Directives: No Advance Directives Information Provided: Yes Current occupational status: disabled Current occupation: rt handed Meds Allergies Allergy/AdvReac Type Severity Reaction Status Date / Time penicillin G [Penicillin G] Allergy Mild SWELLING Verified 06/18/24 12:56 barium sulfate Allergy Unknown HIVES Verified 06/18/24 12:56 [ORAL CONTRAST] cephalexin Allergy Unknown Unknown Verified 06/18/24 12:56 Active Medications: Current Medications Acetaminophen (Acetaminophen 325 Mg Tablet) 650 mg PO Q6H PRN PRN Reason: Pain, Mild 1-3,fever,headache Calcium Carbonate (Calcium Carbonate 750 Mg Tab.Chew) 750 mg PO Q4H PRN PRN Reason: Heartburn Magnesium Hydroxide (Milk Of Magnesia 30 Ml Oral.Susp) 30 ml PO DAILY PRN PRN Reason: Constipation Melatonin (Melatonin 3 Mg Tablet) 6 mg PO BEDTIME PRN PRN Reason: Insomnia Sodium Chloride (0.9 % Sodium Chloride Flush 3 Ml Syringe) 3 ml IVFLUSH [facility] Home Medications ?Medication ?Instructions ?Recorded ?Confirmed ?Last Taken ?Type montelukast 10 mg tablet 10 mg PO BEDTIME 02/13/20 02/20/24 Unknown History (Singulair) insulin lispro 200 unit/mL (3 mL) unit subcut 12/05/20 02/20/24 Unknown History subcutaneous pen (Humalog KwikPen U-200 Insulin) paroxetine HCl 40 mg tablet 40 mg PO BEDTIME 12/05/20 02/20/24 Unknown History pen needle, diabetic 32 gauge x #50 ea 12/05/20 02/20/24 Unknown History (Pentips Pen Needle) nortriptyline 10 mg capsule 10 mg PO BEDTIME 05/21/21 02/20/24 Unknown History insulin glargine 100 unit/mL (3 28 unit subcut DAILY 05/26/21 02/20/24 Unknown History mL) subcutaneous pen (Lantus Solostar U-100 Insulin) multivitamin (One Daily 1 tab PO QAM 05/26/21 02/20/24 Unknown History Multivitamin tablet) gabapentin 600 mg tablet 300 mg PO TID 04/21/22 02/20/24 Unknown History lidocaine 5 % topical patch 1 patch topical DAILY 04/21/22 02/20/24 Unknown History metoprolol succinate 25 mg 25 mg PO DAILY 04/21/22 02/20/24 Unknown History tablet,extended release 24 hr oxcarbazepine 300 mg tablet 450 mg PO BID 04/21/22 02/20/24 Unknown History clonidine HCl 0.1 mg tablet 0.1 mg PO BEDTIME 07/08/22 02/20/24 Unknown History dulaglutide 1.5 mg/0.5 mL 3 mg subcut QWEEK 07/08/22 02/20/24 01/05/23 History subcutaneous pen injector (Nirali) aspirin 81 mg chewable tablet 1 tab PO QPM 01/05/23 02/20/24 Unknown History atorvastatin 80 mg tablet 80 mg PO QPM 01/05/23 02/20/24 Unknown History metformin 500 mg tablet,extended 500 mg PO QPM 01/05/23 02/20/24 Unknown History release 24 hr albuterol sulfate 90 mcg/actuation 2 puff inhalation Q4-6H PRN 06/18/24 Unknown History aerosol inhaler (Ventolin HFA) wheezing baclofen 10 mg tablet 10 mg PO TID PRN muscle spasm 06/18/24 Unknown History calcium 600 mg (as 1 tab PO BID 06/18/24 Unknown History carbonate)-vitamin D3 5 mcg (200 unit) tablet ezetimibe 10 mg tablet 10 mg PO DAILY 06/18/24 Unknown History famotidine 20 mg tablet 20 mg PO BID 06/18/24 Unknown History furosemide 20 mg tablet 20 mg PO QAM 06/18/24 Unknown History icosapent ethyl 1 gram capsule 2 g PO BID 06/18/24 Unknown History losartan 50 mg tablet 50 mg PO DAILY 06/18/24 Unknown History meloxicam 7.5 mg tablet 7.5 mg PO DAILY 06/18/24 Unknown History oxcarbazepine 150 mg tablet 150 mg PO QAM 06/18/24 Unknown History oxycodone 10 mg tablet 10 mg PO Q12H PRN severe pain 06/18/24 Unknown History tirzepatide 15 mg/0.5 mL 15 mg subcut QWEEK 06/18/24 Unknown History subcutaneous pen injector (Lurdes) trazodone 100 mg tablet 100 mg PO BEDTIME PRN insomnia 06/18/24 Unknown History Physical Exam 2 Vital Signs and Narrative: Vital Signs: Last Vital Signs Temp 98.6 F 06/18/24 14:00 Pulse 64 06/18/24 14:00 Resp 20 06/18/24 14:00 BP 110/61 06/18/24 14:00 Pulse Ox 99 06/18/24 14:00 O2 Del Method Room Air 06/18/24 14:00 BMI result Body Mass Index 42.5 Const: Other: Awake alert uncomfortable appearing Resp: Other: Diminished throughout with scattered rhonchi that clear with cough Cardio: Other: No S4; positive S1-S2; no S3 murmurs rubs or gallops GI: Other: Soft nontender nondistended normoactive bowel sounds Neuro: Other: Cranial nerves 2-12 grossly intact as tested. Motor is 5/5 all extremities. Sensation decreased left side of face but otherwise unremarkable. Cognition appropriate. Gait not examined Extrem: Other: No edema bilaterally Results Labs 06/18/24 13:18 06/18/24 13:18 Labs: Laboratory Results - last 24 hr 06/18/24 06/18/24 12:50 13:18 MCV 86.8 MCH 27.7 MCHC 31.9 RDW 13.7 Plt Count 129 L MPV 12.4 H Immature Gran % (Auto) 0.4 Neut % (Auto) 61.4 Lymph % (Auto) 29.7 [place] % (Auto) 6.4 Eos % (Auto) 1.4 Baso % (Auto) 0.7 Lymph # (Auto) 1.7 [place] # (Auto) 0.4 Eos # (Auto) 0.1 Baso # (Auto) 0.0 Abs Immat Gran (auto) 0.02 Absolute Neuts (auto) 3.5 Absolute Nucleated RBC 0.000 Nucleated RBC % (auto) 0.0 PT 11.8 INR 1.0 APTT 31.1 Anion Gap 11 L Estim Creat Clear Calc 120.9 Estimated GFR > 60 POC Glucose 227 H Random Glucose 217 H Calcium 9.2 Triglycerides 205 H Cholesterol 161 LDL Cholesterol, Calc 83 HDL Cholesterol 37 L Imaging Radiologist's Impressions: Impressions Head CT 06/18/24 12:57 IMPRESSION: Focal 1 cm hypodensity right cerebral peduncle/midbrain with perilesional vasogenic edema. Consider subacute hemorrhage. Underlying neoplasm seems less likely. Recommend further imaging evaluation with IV contrast enhanced MRI brain. This critical result was discussed with emergency physician Dr. Lacy Saucedo at 1:33 PM hours on 06/18/2024. It was ascertained that the content and urgency of the report was understood at the time of direct communication. Electronically signed by: Felix Fall MD 06/18/2024 01:35 PM EDT RP Head/Neck CTA 06/18/24 13:04 IMPRESSION: No main cerebral artery occlusion or embolus. No high degree stenosis. No dissection. Calcified plaque without high degree stenosis, left ICA. No aneurysm, main cerebral artery This critical test result is communicated to: Emergency physician Dr. Lacy Saucedo at 1:30 PM on June 10, 2024. Electronically signed by: Felix Fall MD 06/18/2024 01:46 PM EDT RP Assessment and Plan (1) Acute CVA (cerebrovascular accident): Status: Acute (2) Insulin dependent type 2 diabetes mellitus: Status: Acute (3) Coronary artery disease: Qualifiers: Coronary Disease-Associated Artery/Lesion type: unspecified vessel or lesion type [place] vs. transplanted heart: [place] heart Associated angina: u nspecified whether angina present Qualified Code(s): I25.10 - Atherosclerotic heart disease of [place] coronary artery without angina pectoris Status: Acute Plan 58-year-old female awoke from sleep at 03:00 with the worst headache of her life. This was accompanied by mild left-sided facial paresthesias. Presented to the emergency room where CAT scan demonstrated a 1 cm hypodense right cerebral peduncle lesion concerning for subacute hemorrhage. 1. Acute hemorrhagic CVA -MR high head brain with and without contrast (Ativan on-call to MRI) -high-dose statin -hold aspirin at this time -neurology consult -oxycodone/morphine for headache as needed 2. Diabetes type 2 -fair control at present. Question compliance -lispro correctional scale -diabetic diet -adjust therapies as indicated -add back basal insulin in a.m. as indicated 3. Hypertension -acceptable control on current therapies -continue same and adjust as indicated 4. COPD -appears stable and well compensated -continue outpatient therapies -DuoNebs q.4 PRN Pneumatics Full Code Patient will require 2 midnights of inpatient stay to further workup and treat acute hemorrhagic stroke. This can not be achieved a lesser acute setting Quality Stroke Does the patient have a stroke diagnosis?: No VTE Prior VTE?: No VTE Risk Level:: Medical - moderate - high VTE Device Contraindication: N/A - Device Ordered VTE Drug Contraindication: Treatment Not Indicated
[2024-06-18] MEDS: diazePAM 10 MG/2 ML CARTRIDGE 5 MG IVPUSH (15:59)
--- OUTSIDE RECORDS SUMMARY | 2024-06-18 16:02 | XMS_ITS | Encounter Summary ---
Author Organization [facility] Address [address] [place] [address] 7t [place] [address] Care Team Providers Care Communications Technologist Name Role Phone Name, Kiel BAILEY Primary Care Provider [phone] Katlyn Rodriguez PharmD Unavailable [phone] Encounter Details Date Type Department Care Team ([facility] Contact Info) Description 10/29/2022 Abstract [facility] MEDICINE [address] [place] [phone] Name, MD Kiel [address] [place] [address] Social History Tobacco Use Types Packs/Day Years [...] Upcoming Encounters Date Type Department Care Team ([facility] Contact Info) Description 07/12/2024 9:30 AM EDT Medication Management [facility] MED[facility]INE [address] [place] [address] [phone] Katlyn Rodriguez, PharmD [address] [place], [place] [phone] 07/27/2024 10:00 AM EDT Office Visit [address] [address] [place] [address] 08/20/2024 9:30 AM EDT Clinical Support [address] [phone] Opal Steiner, RN documented as of this encounter Goals Goal Patient Goal Type Associated Problems Recent Progress Patient-Stated? Author Hemoglobin A1c < 7 Result Component 7.5( 10:50 AM EST) No Katlyn Rodriguez, PharmD [...] documented as of this encounter Care Teams Communications Technologist Relationship Specialty Start Date End Date Name, [place] [address] PCP - General Family Medicine 07/15/15 PuiaKatlyn, PharmD [address] [place] [address] Pharmacist Internal Medicine 10/08/22 Marta Ovalle Artificial Insemination TechnicianRetail Sales Associate 05/25/23 documented as of this encounter
--- OUTSIDE RECORDS SUMMARY | 2024-06-18 16:02 | XMS_ITS | Encounter Summary ---
Author Organization [facility] Address [address] [place] [address] Care Team Providers Care Manager Retail Name Role Phone Name, Kiel BAILEY Primary Care Provider [phone] Encounter Details Date Type Department Care Team (Late st Contact Info) Description 11/24/2023 9:53 AM EDT Hospital Encounter TH HISTORIC ENCOUNTERS EASTERN CONVERSION ONLY Geoffrey-Art Vitale MD [address] [place] [address] Social History Tobacco Use Types [...] 2:17 PM Encounter Date: 11/24/2023 Status: Signed Bicycle Taxi Driver: Art Davis MD (Physician) CHIEF COMPLAINT: Chief Complaint Patient presents with ? Follow-up Diffuse large B-cell lymphoma Stage III Completed 6 cycles of R-CHOP in July 23, 2018 IDENTIFIER:Sarita Puga is a 58 y.o. female. HPI: The patient returns for follow up of Large B-cell lymphoma. Here with her daughter , who is danish to ukrainian environmental education specialist Patient reports that she has been doing [...] accompanied by her daughter and girlfriend. As Cypriot to Irish environmental education specialist assisted with the discussion. She had a [...] AM EDT Office Visit Orthopedic Surgery - [place] [address] [phone] Wesley Garcia DPM [address] [address] documented as of this encounter Procedures Procedure [...] as of this encounter Care Teams Manager Retail Relationship Specialty Start Date End Date Name, MD Kiel [address] [place], [place] PCP - General Internal Medicine 08/28/15 documented as of this encounter
--- OUTSIDE RECORDS SUMMARY | 2024-06-18 16:02 | XMS_ITS | Encounter Summary ---
Author Organization [email or web address] Address [address] 7[address] [place] [address] Care Team Providers Care Design Supervisor Name Role Phone Name, Kiel BAILEY Primary Care Provider [phone] Katlyn Rodriguez PharmD Unavailable Encounter Details Date Type Department Care Team ([facility] Contact Info) Description 05/01/2024 Telephone [facility] MEDICINE [address] [place], [place] [phone] Name, MD Kiel [address] [place] [address] Social History Tobacco Use Types Packs/Day Years [...] Description 07/12/2024 9:30 AM EDT Medication Management [address] [address] Katlyn Rodriguez, PharmD [address] [place] [address] 07/27/2024 10:00 AM EDT Office Visit [address] [address] Name, MD Kiel [address] [place] [address] 08/20/2024 9:30 AM EDT Clinical Support [address] [address] Opal Steiner, RN documented as of this [...] documented as of this encounter Care Teams Design Supervisor Relationship Specialty Start Date End Date Name, MD Kiel [address] [place] [address] PCP - General Family Medicine 07/15/15 Adenia, Katlyn, PharmD [address] [place] [address] Pharmacist Internal Medicine 10/08/22 Marta Ovalle Nuclear Plant Equipment OperatorPort Captain 05/25/23 documented as of this encounter
--- OUTSIDE RECORDS SUMMARY | 2024-06-18 16:02 | XMS_ITS | Encounter Summary ---
Author Organization [email or web address] [facility] Address [address] [place] [address] 7t [place] [address] Care Team Providers Care Director Electrical Engineering Name Role Phone Name, Kiel BAILEY Primary Care Provider [phone] Katlyn Rodriguez PharmD Unavailable [phone] Encounter Details Date Type Department Care Team ([facility] Contact Info) Description 08/26/2022 Orders Only [facility] MEDICINE [address] [place] [address] Leia Gonzales LPN Social History Tobacco [...] Description 07/12/2024 9:30 AM EDT Medication Management [facility] [address] [place] [address] [phone] Katlyn Rodriguez PharmD [facility] [place] [address] 07/27/2024 10:00 AM EDT Office Visit [address] [place] [address] Name, [place] [address] 08/20/2024 9:30 AM EDT Clinical Support [address] [place] [address] Opal Steiner RN documented as of this encounter Visit Diagnoses Not on filedocumented in this encounter Additional Health Concerns Assessment Noted Time PHQ-9 Depression Total Score: 7 07/15/19 23 2:39 PM EDT documented as of this encounter Care Teams Director Electrical Engineering Relationship Specialty Start Date End Date Name, MD Kiel [facility] [place] [address] PCP - General Family Medicine 07/15/15 Katlyn Rodriguez PharmD [address] [place], [place] [address] [address] Pharmacist Internal Medicine 10/08/22 Marta Ovalle Art Class ModelCarton Repairer 05/25/23 documented as of this encounter
--- OUTSIDE RECORDS SUMMARY | 2024-06-18 16:02 | XMS_ITS | Clinical Summary ---
Author Organization [address] [facility] Address [address] [place] [address] Phone Care Team Providers Care Drive Worker Name Role Phone Name, Kiel BAILEY Primary Care Provider [phone] Allergies Active Allergy Reactions Criticality Noted Date [...] Problem Noted Date Diagnosed Date COPD exacerbation ([facility] V24, [facility] V28) Abnormal nuclear stress test 11/06/2014 Rib fracture 12/24/2013 Overview (12/12/2023): Non displaced, probable froacture on the right ninth and tenth Abdominal pain 08/15/2013 Lipoma of abdominal wall 11/02/2011 Visual field defect 03/29/2011 Cocaine abuse, episodic use ([facility] V24, [facility] V28) 06/17/2010 Low back pain radiating to left leg 10/08/2009 Overview (12/12/2023): The patient follows with [facility] and is treated with injections to the LS. Asthmatic bronchitis , chronic ([facility] V24, [facility] V28) 07/07/2009 Overview (12/12/2023): Severe and worse in the spring. Last hospitalazion in May and 3 ER visits Hospital 08/02 Known medical problems 06/05/2009 Tobacco use disorder 06/05/2009 Hypertriglyceridemia 06/05/2009 Morbid obesity ([facility] V24, [facility] V28) 2009 Overview (12/12/2023): BMI 48.37 on [...] TOTAL HYSTERECTOMY WITH BSO; COMMENT: for bleeding, [facility] Medical History Medical History Date Comments Type II or unspecified type diabetes mellitus with unspecified complication, not stated as uncontrolled DX:Type II or unspecified t ype diabetes mellitus with unspecified complication, not stated as uncontrolled Unspecified essential hypertension DX:Unspecified essential hypertension Tobacco abuse DX:Tobacco abuse RAD (reactive airway disease) DX :RAD (reactive airway disease) Morbid obesity ([facility] V24, [facility] V28) DX:Morbid obesity (HCC) Asthmatic bronchitis , chron ic ([facility] V24, [facility] V28) 07/07/2009 DX:Asthmatic bronchitis , ch ronic ([facility]) Hypertriglyceridemia 06/05/2009 DX:Hypertri glyceridemia Rib fracture 12/24/2013 DX:Rib fracture Family History Medical History Relation Name Comments Blindness Brother 1 Breast cancer Maternal Grandmother Cataracts Maternal Grandmother Blindness Mother Glaucoma Neg Hx Macular degeneration Neg Hx Strabismus Neg Hx Relation Name Status Comments Brother 1 Brother 2 OR Brother 3 Alive 6 brothers are diabetic [...] AM EDT Office Visit Orthopedic Surgery - [place] [address] [phone] Wesley Garcia, DPM [address] [address] Health Maintenance Due Date Last Done Comments [...] mmol/L LAB CHEMISTRY METHOD 02/06/2024 3:36 AM [facility] Potassium 4.1 3.5 - 5.5 mmol/L LAB CHEMISTRY METHOD 02/06/2024 3:36 AM [facility] Chloride 104 96 - 110 mmol/L LAB CHEMISTRY METHOD 02/06/2024 3:36 AM [facility] CO2 23 21 - 32 mmol/L LAB CHEMISTRY METHOD 02/06/2024 3:36 AM [facility] Anion Gap 9 3 - 11 LAB CHEMISTRY METHOD 02/06/2024 3:36 AM [facility] Glucose 244(H) 70 - 100 mg/dL LAB CHEMISTRY METHOD 02/06/2024 3:36 AM [facility] BUN 17 5 - 25 mg/dL LAB CHEMISTRY METHOD 02/06/2024 3:36 AM [facility] Creatinine 0.71 0.50 - 1.10 mg/dL LAB CHEMISTRY METHOD 02/06/2024 3:36 AM EST [facility] eGFR 99 >=60 mL/min/1. 73m2 LAB CHEMISTRY METHOD 02/06/2024 3:36 AM [facility] Comment:Calculation based on the??Chronic Kidney Disease Epidemiology Collaboration (CKD-EPI) equation refit??without adjustment for race. BUN/Creatinine Ratio 23.9 LAB CHEMISTRY METHOD 02/06/2024 3:36 AM [facility] Calcium 9.3 8.5 - 10.5 mg/dL LAB CHEMISTRY METHOD 02/06/2024 3:36 AM [facility] Blood Venous blood specimen / Unknown Venipuncture / Unknown 02/06/2024 2:59 AM EST 02/06/2024 3:13 AM EST Cindy SEGURA LAB BLOOD ORDERABLES Final R esult [facility] [address] [place] [address], * (ABNORMAL) Hemoglobin A1c (11/20/2014) Pathologist [facility] Hemoglobin A1C 7.5(A) 4.0 - 6.0 % Blood Venous blood specimen / Unknown Historical Provider LAB BLOOD ORDERABLES Alis l Result * Urine Albumin Creatinine Ratio (05/10/2014) Pathologist [facility] Urine Albumin Creatinine Ratio abstracted Historical Provider [...] currently active code status orders. Care Teams Drive Worker Relationship Specialty Start Date End Date Name, MD Kiel [address] [place], [place] PCP - General Internal Medicine 08/28/15
--- OUTSIDE RECORDS SUMMARY | 2024-06-18 16:02 | XMS_ITS | Encounter Summary ---
Author Organization [employer] Address [address] [facility] 7[address] [place] [address] Care Team Providers Care Bar Gauger And Lubricator Tender Name Role Phone Name, Kiel BAILEY Primary Care Provider [phone] Katlyn Rodriguez PharmD Unavailable [phone] Reason for Visit * Reason Comments Med Refill Encounter Details Date Type Department Care Team ([facility] st Contact Info) Description 04/15/2023 Refill [facility] MEDICINE [address] [place] [address] Yaneth Restrepo FNP [address] [place] [address] Diabetes mellitus type 2 in obese (CMS/HCC) [...] Description 07/12/2024 9:30 AM EDT Medication Management [address] [address] PuiaKatlyn, PharmD [address] [place] [address] 07/27/2024 10:00 AM EDT Office Visit [address] [address] Name, MD Kiel [address] [place] [address] 08/20/2024 9:30 AM EDT Clinical Support [address] [address] Opal Steiner RN documented as of this [...] documented as of this encounter Care Teams Bar Gauger And Lubricator Tender Relationship Specialty Start Date End Date Name, MD Kiel [address] [place] [address] PCP - General Family Medicine 07/15/15 Katlyn Rodriguez PharmD [address] [place] [address] Pharmacist Internal Medicine 10/08/22 Marta Ovalle Rate EngineerInorganic Chemist 05/25/23 documented as of this encounter
--- OUTSIDE RECORDS SUMMARY | 2024-06-18 16:02 | XMS_ITS | Clinical Summary ---
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 Name,Kiel Report Number: [id number]: Total DLP = 634.00 mGy-cm EXAMINATION: CT HEAD WITHOUT CONTRAST (STROKE PROTOCOL) CLINICAL INFORMATION: Left-sided weakness concerning stroke. COMPARISON: April 06, 2024. TECHNIQUE: Contiguous axial imaging was performed from the skull base to vertex without intravenous administration of contrast. This CT examination was performed using dose optimization techniques as appropriate, variously including the following: *Automated exposure control *Adjustment of mA and/or kV according to patient size (this includes techniques or standardized protocols for targeted exams where dose is matched to indication/reason for exam; i.e. extremities or head) *Use of iterative reconstruction technique DLP: 634 mGy centimeter. FINDINGS: There is a 1 cm subtle hyperintense attenuation measuring 46 Hounsfield units centered in the right cerebral peduncle with the perilesional hypodensity involving the right mid brain and slightly extending into the inferior right thalamus. No midline shift, hydrocephalus or herniation. Sellar/suprasellar region demonstrated no gross masses. Craniocervical junction is intact. Mucosal thickening, left maxillary sinus. Tympanic cavities and mastoid air cells are aerated. CT/CT head for STROKE IMPRESSION: Focal 1 cm hypodensity right cerebral peduncle/midbrain with perilesional vasogenic edema. Consider subacute hemorrhage. Underlying neoplasm seems less likely. Recommend further imaging evaluation with IV contrast enhanced MRI brain. This critical result was discussed with emergency physician Dr. Lacy Saucedo at 1:33 PM hours on 06/18/2024. It was ascertained that the content and urgency of the report was understood at the time of direct communication. Electronically signed by: Felix Fall MD 06/18/2024 01:35 PM EDT RP Dictated By: Felix Mckinnon MD Signed By: <Electronically signed by Felix Tilley MDin OV> 06/18/24 1335 DD/ 1257 TD/TT: 06/18/24 1302 Case Preparer And Liner: [facility] External Provider IMG CT PROCEDURES Final Result * (ABNORMAL) Lipid Panel with Reflex to Direct LDL (06/18/2024 8:18 AM EDT) Triglycerides 156(H) <150 mg/dL [facility] Comment:Desirable Triglyceri de: less than 150 mg/dLBorderline High Triglyceride 150-199 mg/dLHigh Triglyceride: 200-499 mg/dLVery High Triglyceride: greater than or equal to 5OO mg/dL Cholesterol 185 <200 mg/dL [facility] Comment:Desirable Cholestero l: less than 200 mg/dLBorderline High Cholesterol: 200-239 mg/dLHigh Cholesterol: greater than 239 mg/dL LDL Cholesterol Calculated 109(H) <100 mg/dL [facility] Comment:Desirable LDL: less than 100 mg/dLNear Optimal/Above Optimal LDL: 110- 129 mg/dLBorderline High LDL: 130-159 mg/dLHigh LDL: 160-189 mg/dLVery High LDL: greater than or equal to 190 mg/dL HDL Cholesterol 45 >40 mg/dL [facility] Comment:Desirable HDL: great er than 40 mg/dL Note: This HDL assay may give artificially low results in patients with liver disease. 06/18/2024 8:18 AM EDT 06/18/2024 11:00 AM EDT Kiel Shaffer MD LAB BLOOD ORDERABLES Final Resul t [facility] [address] [place] [phone] * Hepatic Function Panel (06/18/2024 8:18 AM EDT) Bilirubin, Total 0.3 0.0 - 1.0 mg/dL [facility] Bilirubin, Direct 0.1 0.0 - 0.5 mg/dL [facility] Aspartate Amino Transferase 22 5 - 31 U/L [facility] Alanine Aminotransferase 31 0 - 31 U/L [facility] Total Protein 6.5 6.5 - 8.0 g/dL [facility] Albumin Level 4.0 3.5 - 5.0 g/dL [facility] Alkaline Phosphatase 72 39 - 117 U/L [facility] 06/18/2024 8:18 AM EDT 06/18/2024 11:00 AM EDT Kiel Shaffer MD LAB BLOOD ORDERABLES Final Resul t [facility] [address] [place] [phone] * Culture, Urine, Routine (06/15/2024 1:51 PM EDT) Urine Urine specimen obtained by clean catch procedure / Unknown 06/15/2024 1:51 PM EDT 06/15/2024 4:02 PM EDT Comment:UACC Narrative [facility] - 06/17/2024 10:56 AM EDT Urine Culture Report Result Urine Culture 50,000 to 100,000 cfu/ml Urine Culture Mixed bacterial princess characteristic of Urine Culture urogenital contamination. Specimen Source: Urine clean catch Victorino Graves MD LAB MICROBIOLOGY - GENERAL ORDER JONY Final Result [facility] [address] [place] [phone] * POCT glucose manually resulted (06/15/2024 [...] PM EST Narrative 04/27/2024 3:57 PM EST ?[facility] ?[address] ?[place] [address] ?XRay Report ? Signed ? Patient: Sarita Puga ?MR#: [id number] ?? 92 ? : 1965 ?Acct:[id number] ? Age/Sex: 58 / F ?ADM Date: 04/27/24 ? Loc: HO.HHCX ? Attending Dr: Sarita Gonzalez MD ? Ordering Physician: Sarita Baker MD ?? Date of Service: 04/27/24 ?? Procedure(s): XR ribs LT min 3V w CXR1V ?? Accession Number(s): [id number] ? cc: Sarita Baker MD ? EXAMINATION: [...] rib exam. ? Electronically signed by: ??Garry Maris MD ??04/27/2024 03:54 PM EST RP ? Dictated By: ?Maris,Garry S MD ? Signed By: ?<Electronically signed by Garry S Maris, MD in OV> ?04/27/24 1554 ? DD/ 1428 ? TD/TT: 04/27/24 1450 ? Case Preparer And Liner: MSM ? Procedure Note Sarmad, Image - 04/27/2024 [facility] [address] [place] [address] XRay Report Signed Patient: Sarita Puga MMR#: [id number] 92 : 1965Acct:[id number] Age/Sex: 58 / FADM Date: 04/27/24 Loc: .HHCX Attending Dr: Sarita Gonzalez MD Ordering Physician: Sarita Bkaer MD Date of Service: 04/27/24 Procedure(s): XR ribs LT min 3V w CXR1V Accession Number(s): [id number] cc: Sarita Baker MD EXAMINATION: XR RIBS, [...] Garry Pollock MD 04/27/2024 03:54 PM EST Dictated By: Garry Pollock MD Signed By: <Electronically signed by Garry Pollock MD in OV> 04/27/24 1554 DD/ 1428 TD/TT: 04/27/24 1450 Case Preparer And Liner: [facility] [place] Sarita Gonzalez MD IMG XR PROCEDURES Fin al Result * US DOPPLER EXT UPPER VENOUS LEFT (04/18/2024 3:59 PM EST) Anatomical Region Laterality Modality Body Ultrasound 04/18/2024 3:59 PM EST Narrative 04/18/2024 4:00 PM EST ? [place] [facility] ?[address] ?[place] [address] ? Ultrasound Report ? Signed ? Patient: Puga,Shilpi ?MR#: [id number] ?? 92 ? : 1965 ?Acct:[id number] ? Age/Sex: 58 / F ?ADM Date: 04/18/24 ? Loc: HO.US ? Attending Dr: Victorino Graevs MD ? Ordering Physician: VICTORINO GRAVES MD ?? Date of Service: 04/18/24 ?? Procedure(s): US venous duplex UE LT ?? Accession Number(s): [id number] ? cc: VICTORINO GRAVES MD; Name,Kiel BAILEY ? CLINICAL HISTORY: LT [...] DD/ 1559 ? TD/TT: 04/18/24 1559 ? Case Preparer And Liner: ? Procedure Note Abdifatahter, Image - 04/18/2024 [place] [address] Ultrasound Report Signed Patient: Sarita Puga MMR#: [id number] 92 : 1965Acct:[id number] Age/Sex: 58 / FADM Date: 04/18/24 Loc: HO.US Attending Dr: Victorino Graves MD Ordering Physician: VICTORINO GRAVES MD Date of Service: 04/18/24 Procedure(s): US venous duplex UE LT Accession Number(s): [id number] cc: VICTORINO GRAVES MD; Name,Kiel BAILEY CLINICAL [...] 04/18/24 1600 DD/ 1559 TD/TT: 04/18/24 1559 Case Preparer And Liner: us Victorino Graves MD IMG US PROCEDURES Final Result * POCT KEELEY-14 Urine Drug Screen (04/10/2024 9:12 AM EST) TCA, Urine Positive Oxycodone Screen, Urine Positive Urine Urine specimen obtained by clean catch procedure / Unknown 04/10/2024 9:12 AM EST Opal George RN - 04/10/2024 9:12 AM EST UTOX cup Lot#[id number] Exp. 10/10/25 Internal Pass Control Kiel Shaffer MD POINT OF CARE TEST ENTER/EDIT OR DERABLES Final Result * CT Head w/o Contrast (04/06/2024 7:14 PM EST) Anatomical Region Laterality Modality Head, Neck Computed Tomogra phy 04/06/2024 7:14 PM EST Narrative 04/06/2024 7:16 PM EST ? [facility] ?[address] ?[place] [address] ? CT Scan Report ? Signed ? Patient: Puga,Shilpi ?MR#: [id number] ?? 92 ? : 1965 ?Acct:[id number] ? Age/Sex: 58 / F ?ADM Date: 02/14/25 ? Loc: HO.ED ? Attending Dr: ? Ordering Physician: Ciales,Page DO ?? Date of Service: 04/06/24 ?? Procedure(s): CT head/brain wo IV con ?? Accession Number(s): [id number] ? cc: Page Garcia DO; Name,Kiel BAILEY ? Report Number: ?? [id number]: Total DLP = 1319.00 mGy-cm ? CLINICAL [...] ? DD/ 13 ? TD/TT: 04/06/241913 ? Case Preparer And Liner: ? Procedure Note Donotuseinterpreter, Image - 04/06/[address] [place] [address] [address] Scan Report Signed Patient: Sarita Puga MMR#: [id number] 92 : 1965Acct:[id number] Age/Sex: 58 / FADM Date: 04/06/24 Loc: HO.ED Attending Dr: Ordering Physician: Page Garcia DO Date of Service: 04/06/24 Procedure(s): CT head/brain wo IV con Accession Number(s): [id number] cc: Page Garcia DO; Name,Kiel BAILEY Report Number: [id number]: Total DLP = 1319.00 mGy-cm CLINICAL HISTORY: [...] in OV> 04/06/241915 DD/ 13 TD/TT: 04/06/241913 Case Preparer And Liner: [facility] External Provider IMG CT PROCEDURES Edited Result - Final * CT Chest w/ Contrast (04/06/2024 7:12 PM EST) Anatomical Region Laterality Modality Body, Chest Computed Tomogra phy 04/06/2024 7:12 PM EST Narrative 04/06/2024 7:13 PM EST ? [facility] ?[address] ?[place] [address] ? CT Scan Report ? Signed ? Patient: Sarita Puga ?MR#: [id number] ?? 92 ? : 1965 ?Acct:[id number] ? Age/Sex: 58 / F ?ADM Date: 04/06/24 ? Loc: HO.ED ? Attending Dr: ? Ordering Physician: Page Garcia DO ?? Date of Service: 04/06/24 ?? Procedure(s): CT chest w IV con ?? Accession Number(s): [id number] ? cc: Page Garcia DO; Name,Kiel BAILEY ? Report Number: ?? [id number]: Total DLP = ?0.00 mGy-cm ? CLINICAL HISTORY: chest wall pain after trauma ? CT chest with contrast ? Comparison: CT/PA/SR - CT CHEST W IV CON - [...] ? Signed By: ?<Electronically signed by Andrew Ahsley MD in OV> ? 04/06/241911 ? DD/ 11 ? TD/TT: 04/06/241911 ? Case Preparer And Liner: ? Procedure Note Donotuseinterpreter, Image - 04/06/[address] [place] [address] [address] Scan Report Signed Patient: Sarita Puga MMR#: [id number] 92 : 1965Acct:[id number] Age/Sex: 58 / FADM Date: 04/06/24 Loc: HO.ED Attending Dr: Ordering Physician: Page Garcia DO Date of Service: 04/06/24 Procedure(s): CT chest w IV con Accession Number(s): [id number] cc: Page Garcia DO; Name,Kiel BAILEY Report Number: [id number]: Total DLP = 0.00 mGy-cm CLINICAL HISTORY: chest wall pain after trauma CT chest with contrast Comparison: CT/PA/SR - CT CHEST W IV CON - [...] in OV> 04/06/241911 DD/ 11 TD/TT: 04/06/241911 Case Preparer And Liner: [facility] External Provider IMG CT PROCEDURES Edited Result - Final * CT Abdomen Pelvis w/ Contrast (04/06/2024 7:11 PM EST) Anatomical Region Laterality Modality Body, Pelvis, Abdomen Computed T omography 04/06/2024 7:11 PM EST Narrative 04/06/2024 7:13 PM EST ? [facility] ?[address] ?[place] [address] ? CT Scan Report ? Signed ? Patient: Puga,Shilpi ?MR#: [id number] ?? 92 ? : 1965 ?Acct:[id number] ? Age/Sex: 58 / F ?ADM Date: 04/06/24 ? Loc: HO.ED ? Attending Dr: ? Ordering Physician: Page Garcia DO ?? Date of Service: 04/06/24 ?? Procedure(s): CT abdomen pelvis w IV con ?? Accession Number(s): [id number] ? cc: Page Garcia DO; Name,Kiel BAILEY ? Report Number: ?? [id number]: Total DLP = 2421.00 mGy-cm ? CLINICAL [...] ? DD/ 10 ? TD/TT: 04/06/241910 ? Case Preparer And Liner: ? Procedure Note Jung Bañuelos - 04/06/[address] [address] CT Scan Report Signed Patient: Sarita Puga MMR#: [id number] 92 : 1965Acct:[id number] Age/Sex: 58 / FADM Date: 04/06/24 Loc: HO.ED Attending Dr: Ordering Physician: Page Garcia DO Date of Service: 04/06/24 Procedure(s): CT abdomen pelvis w IV con Accession Number(s): [id number] cc: Page Garcia DO; Name,Kiel BAILEY Report Number: [id number]: Total DLP = 2421.00 mGy-cm CLINICAL HISTORY: [...] in OV> 04/06/241911 DD/ 10 TD/TT: 04/06/241910 Case Preparer And Liner: [facility] External Provider IMG CT PROCEDURES Edited Result - Final * CT Cervical Spine w/o Contrast (04/06/2024 7:02 PM EST) Anatomical Region Laterality Modality Spine, C-spine Computed Tomogra phy 04/06/2024 7:02 PM EST Narrative 04/06/2024 7:04 PM EST ? [facility] ?[address] ?[place] [address] ? CT Scan Report ? Signed ? Patient: Puga,Shilpi ?MR#: [id number] ?? 92 ? : 1965 ?Acct:[id number] ? Age/Sex: 58 / F ?ADM Date: /14/25 ? Loc: HO.ED ? Attending Dr: ? Ordering Physician: Page Garcia DO ?? Date of Service: 04/06/24 ?? Procedure(s): CT cervical spine wo IV con ?? Accession Number(s): [id number] ? cc: Page Garcia DO; Name,Kiel BAILEY ? Report Number: ?? [id number]: Total DLP = ?0.00 mGy-cm ? CLINICAL [...] 1903 ? DD/ 1902 ? TD/TT: 04/06/24 190 ? Case Preparer And Liner: ? Procedure Note Jung Bañuelos - 04/06/[address] [place] [address] [address] Scan Report Signed Patient: Sarita Puga MMR#: [id number] 92 : 1965Acct:[id number] Age/Sex: 58 / FADM Date: 04/06/24 Loc: HO.ED Attending Dr: Ordering Physician: Page Garcia DO Date of Service: 04/06/24 Procedure(s): CT cervical spine wo IV con Accession Number(s): [id number] cc: Page Garcia DO; Name,Kiel BAILEY Report Number: [id number]: Total DLP = 0.00 mGy-cm CLINICAL HISTORY: [...] in OV> 04/06/241902 DD/ 01 TD/TT: 04/06/241901 Case Preparer And Liner: [facility] External Provider IMG CT PROCEDURES Edited Result - Final * XR Humerus Left (04/06/2024 2:32 PM EST) Anatomical Region Laterality Modality Upper Extremities, Humerus Left Radio graphic Imaging 04/06/2024 2:32 PM EST Narrative 04/06/2024 3:02 PM EST ? [facility] ?[address] ?[place] [address] ?XRay Report ? Signed ? Patient: Sarita Puga ?MR#: [id number] ?? 92 ? : 1965 ?Acct:[id number] ? Age/Sex: 58 / F ?ADM Date: 04/06/24 ? Loc: HO.ED ? Attending Dr: ? Ordering Physician: Page Garcia DO ?? Date of Service: 04/06/24 ?? Procedure(s): XR humerus LT ?? Accession Number(s): [id number] ? cc: Page Garcia DO; Kiel Shaffer MD ? EXAMINATION: ??XR HUMERUS LEFT ? HISTORY: [...] DD/ 1432 ? TD/TT: 04/06/24 1446 ? Case Preparer And Liner: ? Procedure Note Donotramakrishnainterpreter, Image - 04/06/2024 [place] [address] XRay Report Signed Patient: Sarita Puga MMR#: [id number] 92 : 1965Acct:[id number] Age/Sex: 58 / FADM Date: 04/06/24 Loc: HO.ED Attending Dr: Ordering Physician: Page Garcia DO Date of Service: 04/06/24 Procedure(s): XR humerus LT Accession Number(s): [id number] cc: Page Garcia DO; Name,Kiel BAILEY EXAMINATION: [...] 04/06/24 1459 DD/ 1432 TD/TT: 04/06/24 1446 Case Preparer And Liner: us [facility] External Provider IMG XR PROCEDURES Edited Result - Final * (ABNORMAL) POCT HGB A1C (03/27/2024 10:50 AM EST) Hemoglobin A1C 7.5(A) 4.0 - 6.0 % QC Media Lot # [id number] Lot# Expiration Date [id number] Blood 03/27/2024 10:5 0 AM EST Kiel Deena BAILEY POINT OF CARE TEST ENTER/EDIT OR DERABLES Final Result * BI Mammogram Screening Tomosynthesis Bilateral (06/03/2023 8:45 AM EDT) Anatomical Region Laterality Modality Breast Bilateral Mammography 06/03/2023 8:45 AM EDT Narrative 06/30/2023 10:24 PM EDT ? [facility] ? [address] ?[place] [address] ? Mammography Report ? Signed ? Patient: Puga,Shilpi ?MR#: [id number] ?? 92 ? : 1965 ?Acct:[id number] ? Age/Sex: 57 / F ?ADM Date: 04/12/24 ? Loc: HO.MAMMO ? Attending Dr: Kiel Name MD ? Ordering Physician: Name,Kiel MD ?Results: 1Negative ? Date of Service: 04/12/24 ?Follow Up: 1 Year From Orig ?? inal Mammogram ? Procedure(s): MM tomosynthesis screening BI ?? Accession Number(s): [id number] ? cc: Name,Kiel BAILEY ? EXAMINATION: ?? [...] 2220 ? DD/ 0845 ? TD/TT: ? Case Preparer And Liner: ? Procedure Note Sarmad, Image - 06/30/2023 [facility] [facility] [address] [place] [address] Dr. [place], [place] [address] Mammography Report Signed Patient: Sarita Puga MMR#: [id number] 92 : 1965Acct:[id number] Age/Sex: 57 / FADM Date: 06/03/23 Loc: MARGAUX Attending Dr: Kiel Shaffer MD Ordering Physician: Name,Kiel MDResults: 1Negative Date of Service: 06/03/23Follow Up: 1 Year From Orig inal Mammogram Procedure(s): MM tomosynthesis screening BI Accession Number(s): [id number] cc: Kiel Shaffer MD EXAMINATION: MM SCREENING [...] MD in OV> 06/30/230 DD/ 0845 TD/TT: Case Preparer And Liner: Kiel Deena BAILEY IM BI PROCEDURES Edited Result - Final * Albumin, Random Urine W/Creatinine (05/26/2023 8:27 AM EDT) Creatinine, Urine 185.88 mg/dL [facility] Microalbumin Urine 23.0 mg/L [facility] Microalbum Creatinine Ratio Ur 12.3 <30 ug/mg cr [facility] Comment:Albumin/Creatinine R atio Reference Ranges: Normal: < 30 ug/mg creatinine Microalbuminuria: 30 - 300 ug/mg creatinineClinical Albuminuria: > 300 ug/mg creatinine Urine (Urine, Random) 05/26/2023 8:27 AM EDT 05/26/2023 11:19 AM EDT Kiel Shaffer MD LAB URINE ORDERABLES Final Resul t [facility] [address] [place] [phone] * Colonoscopy (07/01/2022 4:37 PM EDT) Colonoscopy Normal Normal Narrative [place] [facility] - 07/01/2022 4:37 PM EDT Recommended 5 year follow up ([facility] Historical Provider HEALTH MAINTENANCE Final Result * Diabetes Eye Exam (05/26/2022) Eye Exam Normal Normal Kiel Shaffer MD HEALTH MAINTENANCE Final Result from Last 3 Months or Most Recently Relevant to Health Maintenance Insurance [employer] [address] [place] [address] [facility] [address] [place] [address] [facility] [employer] [place] [address] [address] [place], [place] [address] [place], [place] Care Teams Staffing And Scheduling Coordinator Relationship Specialty Start Date End Date Name, MD Kiel [address] [place] [address] PCP - General Family Medicine 07/15/15 Katlyn Rodriguez, AngieD [address] [place] [address] Pharmacist Internal Medicine 10/08/22 Marta Ovalle Anode AdjusterPlumber Maintenance 05/25/23
--- OUTSIDE RECORDS SUMMARY | 2024-06-18 16:02 | XMS_ITS | Encounter Summary ---
Author Organization [employer] Address [address] [place] [address] Care Team Providers Care Web Design Instructor Name Role Phone Name, Kiel BAILEY Primary Care Provider [phone] Katlyn Rodriguez PharmD Unavailable [phone] Encounter Details Date Type Department Care Team ([facility] st Contact Info) Description 02/20/2024 Telephone [facility] [address] [place], [place] [phone] Name, MD Kiel [address] [place] [address] Social History Tobacco Use Types Packs/Day Years [...] Description 07/12/2024 9:30 AM EDT Medication Management [address] [address] AdeniaKatlyn, PharmD [address] [place] [phone] 07/27/2024 10:00 AM EDT Office Visit [address] [address] Name, MD Kiel [address] [place] [phone] 08/20/2024 9:30 AM EDT Clinical Support [address] [address] Opal Steiner, MARINA documented as of this [...] documented as of this encounter Care Teams Web Design Instructor Relationship Specialty Start Date End Date Name, MD Kiel [address] [place] [address] PCP - General Family Medicine 07/15/15 Katlyn Rodriguez PharmD [address] [place] [address] Pharmacist Internal Medicine 10/08/22 Marta Ovalle Radiological Health SpecialistRotor Balancer 05/25/23 documented as of this encounter
--- OUTSIDE RECORDS SUMMARY | 2024-06-18 16:02 | XMS_ITS | Encounter Summary ---
Author Organization [employer] Address [address] [facility] [address] [place] [address] Care Team Providers Care Combination Man Name Role Phone Name, Kiel BAILEY Primary Care Provider Katlyn Rodriguez PharmD Unavailable [phone] Reason for Visit * Reason Comments Med Refill Encounter Details Date Type Department Care Team ([facility] st Contact Info) Description 09/07/2023 Refill [facility] [address] [place], [place] [phone] Name, MD Kiel [address] [place] [address] Type 2 diabetes mellitus with other specified [...] Description 07/12/2024 9:30 AM EDT Medication Management [address] [address] PuiaReidKatlyn, PharmD [address] [place] [phone] 07/27/2024 10:00 AM EDT Office Visit [address] [address] Name, MD Kiel [address] [place] [address] 08/20/2024 9:30 AM EDT Clinical Support [address] [address] Opal Steiner, MARINA documented as of this [...] documented as of this encounter Care Teams Combination Man Relationship Specialty Start Date End Date Name, MD Kiel [address] [place] [address] PCP - General Family Medicine 07/15/15 Katlyn Rodriguez PharmD [address] [place] [address] Pharmacist Internal Medicine 10/08/22 Marta Ovalle Property Insurance AgentDirect Service Professional 05/25/23 documented as of this encounter
--- OUTSIDE RECORDS SUMMARY | 2024-06-18 16:02 | XMS_ITS | Encounter Summary ---
Author Organization [facility] Address [address] [place] [address] Care Team Providers Care Caustics Loader Name Role Phone Name, Kiel BAILEY Primary Care Provider [phone] Encounter Details Date Type Department Care Team (Late Contact Info) Description 11/24/2023 10:30 AM EDT Hospital Encounter TH HISTORIC ENCOUNTERS EASTERN CONVERSION ONLY Geoffrey-Art Vitale MD [address] [place] [phone] Social History Tobacco Use Types Packs/Day Years [...] 9:00 AM EDT Office Visit Orthopedic Surgery [facility] [address] [facility] 250 [place] [phone] Wesley Garcia, DPM 175 [facility] 250 [place] [address] documented as of this encounter Visit Diagnoses Not on filedocumented in this encounter Additional Health Concerns Infection Onset Date Last Indicated Resolved Time Respiratory Rule-Out 02/05/2024 02/05/2024 024 8:09 AM EST COVID-19 Rule-Out 02/05/2024 02/05/2024 02/05/2024 8:09 AM EST documented as of this encounter Care Teams Caustics Loader Relationship Specialty Start Date End Date Name, MD Kiel [address] [place], [place] PCP - General Internal Medicine 08/28/15 documented as of this encounter
[2024-06-18] MEDS: 0.9 % Sodium Chloride Flush 3 ML SYRINGE IVFLUSH ×2 (16:03→21:49)
--- OUTSIDE RECORDS SUMMARY | 2024-06-18 16:03 | XMS_ITS | Encounter Summary ---
Author Organization [email or web address] Address [address] [facility] 7t [place] [address] Care Team Providers Care Electric Mule Driver Name Role Phone Name, Kiel BAILEY Primary Care Provider [phone] Katlyn Rodriguez PharmD Unavailable [phone] Reason for Visit * Reason Comments Med Refill Encounter Details Date Type Department Care Team ([facility] st Contact Info) Description 06/08/2024 Refill [facility] [address] [place], [place] [phone] Name, MD Kiel [address] [place] [address] Chronic pain syndrome Social History Tobacco Use [...] Upcoming Encounters Date Type Department Care Team ([facility] st Contact Info) Description 07/12/2024 9:30 AM EDT Medication Management [facility] MEDICINE [address] [place] [address] Puia, Katlyn, PharmD Jai [facility] [place] [address] 07/27/2024 10:00 AM EDT Office Visit [address] [address] [place] [address] 08/20/2024 9:30 AM EDT Clinical Support [address] [place] [address] Opal Steiner, MARINA documented as of this [...] documented as of this encounter Care Teams Electric Mule Driver Relationship Specialty Start Date End [place] [address] PCP - General Family Medicine 07/15/15 Puia, Katlyn, [place] [address] Pharmacist Internal Medicine 10/08/22 Marta Ovalle Assembly InspectorEnrollment Manager 05/25/23 documented as of this encounter
--- OUTSIDE RECORDS SUMMARY | 2024-06-18 16:03 | XMS_ITS | Encounter Summary ---
Author Organization [email or web address] [facility] Address [address] [place] [address] 7t [place] [address] Care Team Providers Care Lining Layer Name Role Phone Name, Kiel BAILEY Primary Care Provider [phone] Katlyn Rodriguez PharmD Unavailable [phone] Encounter Details Date Type Department Care Team ([facility] Contact Info) Description 07/01/2022 Abstract [facility] MEDICINE [address] [place] [address] Name, MD Kiel [address] [place] [address] Social History Tobacco Use Types Packs/Day Years [...] Team ([facility] Contact Info) Description 07/12/2024 9:30 AM EDT Medication Management [facility] MEDICINE [address] [place] [address] Katlyn Rodriguez PharmD [address] [place] [address] 07/27/2024 10:00 AM EDT Office Visit [address] [address] Name, MD Kiel [address] [place] [address] 08/20/2024 9:30 AM EDT Clinical Support [address] [phone] Opal Steiner RN documented as of this encounter Procedures Procedure Name Priority Date/Time Associated Diagnosis Comments COLONOSCOPY Routine 07/01/2022 4:37 PM EDT documented in this encounter Results * Colonoscopy (07/01/2022 4:37 PM EDT) Colonoscopy Normal Normal Narrative Emely Devine - 07/01/2022 4:37 PM EDT Recommended 5 year follow up ([facility]) Historical Provider HEALTH MAINTENANCE Final Result documented in this encounter Visit Diagnoses Not on filedocumented in this encounter Care Teams Lining Layer Relationship Specialty Start Date End Date Name, MD Kiel [address] [place] [address] PCP - General Family Medicine 07/15/15 Katlyn Rodriguez, PharmD [address] [place] [address] Pharmacist Internal Medicine 10/08/22 Marta Ovalle Manager EntryNumerical Control Lathe Operator 05/25/23 documented as of this encounter
--- OUTSIDE RECORDS SUMMARY | 2024-06-18 16:03 | XMS_ITS | Encounter Summary ---
Author Organization [employer] [facility] Address [address] [place] [address] 7t [place] [address] Care Team Providers Care Half Sole Fitter Name Role Phone Name, Kiel BAILEY Primary Care Provider [phone] Katlyn Rodriguez PharmD Unavailable [phone] Reason for Visit * Reason Comments Med Refill Encounter Details Date Type Department Care Team (Late Contact Info) Description 06/28/2022 Refill [facility] MEDICINE [address] [place] [address] Name, MD Kiel [address] [place] [address] Chronic pain syndrome Social History Tobacco Use [...] Upcoming Encounters Date Type Department Care Team ([facility] Contact Info) Description 07/12/2024 9:30 AM EDT Medication Management [facility] MEDICINE [address] [place] [address] Katlyn Rodriguez PharmD [address] [place] [address] 07/27/2024 10:00 AM EDT Office Visit [address] [address] Name, [place] [address] 08/20/2024 9:30 AM EDT Clinical Support [address] [address] Opal Steiner RN documented as of this encounter Visit Diagnoses Diagnosis Chronic pain syndrome documented in this encounter Care Teams Half Sole Fitter Relationship Specialty Start Date End Date Name, MD Kiel [address] [place] [address] PCP - General Family Medicine 07/15/15 Katlyn Rodriguez, PharmD [address] [place] [address] Pharmacist Internal Medicine 10/08/22 Marta Ovalle Carbon Lamp CleanerScreen Print Operator 05/25/23 documented as of this encounter
--- OUTSIDE RECORDS SUMMARY | 2024-06-18 16:03 | XMS_ITS | Encounter Summary ---
Author Organization [employer] [facility] Address [address] [place] [address] 7t [place] [address] Care Team Providers Care Computer Programmer Analyst Name Role Phone Name, Kiel BAILEY Primary Care Provider [phone] Katlyn Rodriguez PharmD Unavailable Reason for Visit * Reason Comments Med Refill Encounter Details Date Type Department Care Team ([facility] Contact Info) Description 07/16/2022 Refill [facility] MEDICINE 230 [place] [address] Name, MD Kiel 230 [place] [address] Chronic pain syndrome Social History Tobacco Use [...] Description 07/12/2024 9:30 AM EDT Medication Management [address] [address] Katlyn Rodriguez PharmD [address] [place] [address] 07/27/2024 10:00 AM EDT Office Visit [address] [address] Name, MD Kiel [address] [place] [address] 08/20/2024 9:30 AM EDT Clinical Support [address] [address] Opal Steiner, RN documented as of this encounter Visit Diagnoses Diagnosis Chronic pain syndrome documented in this encounter Additional Health Concerns Assessment Noted Time PHQ-9 Depression Total Score: 7 07/15/19 2:39 PM EDT documented as of this encounter Care Teams Computer Programmer Analyst Relationship Specialty Start Date End Date Name, MD Kiel [address] [place] [address] PCP - General Family Medicine 07/15/15 Katlyn Rodriguez PharmD [address] [place] [address] Pharmacist Internal Medicine 10/08/22 Marta Ovalle Pot Room TapperAuger Press Operator 05/25/23 documented as of this encounter
--- OUTSIDE RECORDS SUMMARY | 2024-06-18 16:03 | XMS_ITS | Encounter Summary ---
Author Organization [employer] Address [address] [facility] [address] 7t [place] [address] Care Team Providers Care Directory Carrier Name Role Phone Name, Kiel BAILEY Primary Care Provider [phone] Katlyn Rodriguez PharmD Unavailable [phone] Encounter Details Date Type Department Care Team ([facility] Contact Info) Description 06/18/2024 Telephone [facility] 230 [place] [address] Yvonne Walls MD 230 [place] [address] Social History Tobacco Use Types Packs/Day Years [...] encounter Miscellaneous Notes * Telephone Encounter - Pina Gonzales RN - 06/18/2024 12:34 PM EDT Pt presents to Walk In reporting left facial numbness, h/a, weakness and impaired speech since 3AM.(Pt informed EMS she went to bed around 7PM last night.) Pt reports cannot feel left side of face. Pt reports she was here this morning (at [facility]) to get labs done and went home and called her CAP AND STUD MACHINE OPERATOR and was brought here by son. Vitals- Temp 97.7F temporal, BP 149/88, Pulse 99, 98% RA Walk In RN Shayan gave verbal report to Dr. Walls, while this quality analyst/technical writer stayed with pt, and EMS call was initiated, ?stroke rule out. Pt requesting to be transported to [facility] ED. EMS team arrivedaround 1230 and give verbal report. Pt being transported at hospital TBD. RN forward message to PCP as AVERY. documented in this encounter Plan of Treatment Upcoming Encounters Date Type Department Care Team (Late st Contact Info) Description 07/12/2024 9:30 AM EDT Medication Management [facility] MEDICINE 230 [place] [address] Puia, Katlyn, PharmD Jai [facility] [place] [address] 07/27/2024 10:00 AM EDT Office Visit [facility] [address] [place] [address] 08/20/2024 9:30 AM EDT Clinical Support [facility] [address] Opal Steiner, MARINA documented as of this [...] documented as of this encounter Care Teams Directory Carrier Relationship Specialty Start Date End Date [place] [address] PCP - General Family Medicine 07/15/15 Puia, Katlyn, [place] [address] Pharmacist Internal Medicine 10/08/22 Marta Ovalle Sap GathererCivil Structural Engineer 05/25/23 documented as of this encounter
--- OUTSIDE RECORDS SUMMARY | 2024-06-18 16:03 | XMS_ITS | Encounter Summary ---
Author Organization [employer] Address [address] [facility] 7t [place] [address] Care Team Providers Care Ordnance Mechanic Name Role Phone Name, Kiel BAILEY Primary Care Provider [phone] Katlyn Rodriguez PharmD Unavailable [phone] Reason for Visit * Reason Onset Date Comments Durable Medical Equipment 01/24/2023 Encounter Details Date Type Department Care Team ([facility] st Contact Info) Description 01/24/2023 Telephone [facility] MEDICINE 230 [place] [address] Name, MD Kiel 230 [place] [address] Durable Medical Equipment Social History Tobacco Use [...] to errol. Any questions, contact pt at [phone] documented in this encounter Plan of Treatment Upcoming Encounters Date Type Department Care Team (Late st Contact Info) Description 07/12/2024 9:30 AM EDT Medication Management [address] [address] Katlyn Rodriguez PharmD [address] [place] [address] 07/27/2024 10:00 AM EDT Office Visit [address] [address] Name, MD Kiel [address] [place] [address] 08/20/2024 9:30 AM EDT Clinical Support [address] [address] Opal Steiner, RN documented as of this [...] documented as of this encounter Care Teams Ordnance Mechanic Relationship Specialty Start Date End Date Name, MD Kiel 230 [place] [address] PCP - General Family Medicine 07/15/15 Katlyn Rodriguez, PharmD 230 [place] [address] Pharmacist Internal Medicine 10/08/22 Marta Ovalle Biomedical Engineering AideSecondary History Teacher 05/25/23 documented as of this encounter
--- OUTSIDE RECORDS SUMMARY | 2024-06-18 16:03 | XMS_ITS | Encounter Summary ---
Author Organization [employer] Address [address] [facility] 7t [place] [address] Care Team Providers Care Film Inspector Name Role Phone Name, Kiel BAILEY Primary Care Provider Katlyn Rodriguez PharmD Unavailable [phone] Reason for Visit * Reason Onset Date Comments Med Refill 06/15/2024 Encounter Details Date Type Department Care Team ([facility] st Contact Info) Description 06/15/2024 Telephone [facility] MEDICINE 230 [place] [address] Name, MD Kiel 230 [place] [address] Med Refill Social History Tobacco Use Types [...] Description 07/12/2024 9:30 AM EDT Medication Management [facility] [address] [place] [address] Katlyn Rodriguez, PharmD 230 [place] [address] 07/27/2024 10:00 AM EDT Office Visit [facility] [address] [place] [address] Name, [place] [address] 08/20/2024 9:30 AM EDT Clinical Support [address] [address] Opal Steiner RN documented as of this [...] documented as of this encounter Care Teams Film Inspector Relationship Specialty Start Date End Date Name, MD Kiel [address] [place] [address] PCP - General Family Medicine 07/15/15 Puia, Katlyn, PharmD [address] [place] [address] Pharmacist Internal Medicine 10/08/22 Marta Ovalle Carpet Sewing Machine OperatorMedical Center Manager 05/25/23 documented as of this encounter
--- OUTSIDE RECORDS SUMMARY | 2024-06-18 16:03 | XMS_ITS | Encounter Summary ---
Author Organization [employer] Address [address] [facility] 7t [place] [address] Care Team Providers Care Ship Harbor Pilot Name Role Phone Name, Kiel BAILEY Primary Care Provider [phone] Katlyn Rodriguez PharmD Unavailable [phone] Reason for Visit * Reason Onset Date Comments Reschedule 08/01/2023 Encounter Details Date Type Department Care Team ([facility] st Contact Info) Description 08/01/[address] [facility] MEDICINE 230 [place] [address] Name, MD Kiel 230 [place] [address] Reschedule Social History Tobacco Use Types Packs/Day [...] 08/01/2023 9:55 AM EDT Triage call with [place] [facility] Clerk ID [id number] . Pt reports Covid + test this [...] 08/01/2023 9:04 AM EDT Patient cancelled todays TRADE MANAGER RV appt today. Pt's TRADE MANAGER appt has been rescheduled for chronic pain [...] AM EDT Tc from pt requesting r/s TRADE MANAGER appt, stated is sick and suspect is COVID documented in this encounter Plan of Treatment Upcoming Encounters Date Type Department Care Team (Late st Contact Info) Description 07/12/2024 9:30 AM EDT Medication Management [facility] MED[facility] [address] [place] [address] Katlyn Rodriguez, PharmD 230 [place] [address] 07/27/2024 10:00 AM EDT Office Visit [facility] [address] [place] [address] Name, MD Kiel [address] [place] [address] 08/20/2024 9:30 AM EDT Clinical Support [facility] 230 [place] [address] Opal Steiner, MARINA documented as of this [...] as of this encounter Care Teams Ship Harbor Pilot Relationship Specialty Start Date End Date Name, MD Kiel [address] [place] [address] PCP - General Family Medicine 07/15/15 Puia, Katlyn, PharmD [address] [place] [address] Pharmacist Internal Medicine 10/08/22 Marta Ovalle Health Information TechnologistDermatology Specialist 05/25/23 documented as of this encounter
--- OUTSIDE RECORDS SUMMARY | 2024-06-18 16:03 | XMS_ITS | Encounter Summary ---
Author Organization [employer] Address [address] [facility] [address] 7t [place] [address] Care Team Providers Care Youth Program Director Name Role Phone Name, Kiel BAILEY Primary Care Provider [phone] Katlyn Rodriguez PharmD Unavailable [phone] Encounter Details Date Type Department Care Team ([facility] st Contact Info) Description 06/18/[address] [facility] MEDICINE 230 [place], [place] [phone] Name, MD Kiel 230 [place] [address] Social History Tobacco Use Types Packs/Day Years [...] Description 07/12/2024 9:30 AM EDT Medication Management [address] [address] PuiaPremasa, PharmD [address] [place] [address] 07/27/2024 10:00 AM EDT Office Visit [address] [address] Name, MD Kiel [address] [place] [address] 08/20/2024 9:30 AM EDT Clinical Support [address] [address] Opal Steiner, MARINA documented as of this [...] 8:18 AM EDT HEPATIC FUNCTION PANEL Routine 06/18/2024 8:18 AM EDT documented in this encounter Results * CTA Head Stroke w/ and w/o Contrast (06/18/2024 1:04 PM EDT) Anatomical Region Laterality Modality Computed Tomogra phy 06/18/2024 1:04 PM EDT Narrative 06/18/2024 1:49 PM EDT ? [facility] ?[address] ?[place] [address] ? CT Scan Report ? Signed ? Patient: Sarita Puga ?MR#: [id number] ?? 92 ? : 1965 ?Acct:[id number] ? Age/Sex: 58 / F ?ADM Date: 06/18/24 ? Loc: HO.ED ? Attending Dr: ? Ordering Physician: Lacy Saucedo MD ?? Date of Service: 06/18/24 ?? Procedure(s): CT angio head neck STROKE ?? Accession Number(s): [id number] ? cc: Lacy Saucedo MD; Name,Kiel BAILEY ? Report Number: ?? [id number]: Total DLP = ??673.00 mGy-cm ?? EXAMINATION: [...] ?? Superior cerebellar arteries are patent. ? intermediate manager: ?? Normal patency. No focal stenosis. No [...] Fall MD ??06/18/2024 01:46 PM ?? EDT ? Dictated By: ?Felix Mckinnon MD ? Signed By: ?<Electronically signed by Felix Tilley MD in OV> ? 06/18/24 1346 ? DD/ 1304 ? TD/TT: 06/18/24 1319 ? Slot Floorperson: ? Procedure Note Sarmad, Jung - 06/18/[address] [place] [address] [address] Scan Report Signed Patient: Sarita Puga MMR#: [id number] 92 : 1965Acct:[id number] Age/Sex: 58 / FADM Date: 06/18/24 Loc: HO.ED Attending Dr: Ordering Physician: Lacy Saucedo MD Date of Service: 06/18/24 Procedure(s): CT angio head neck STROKE Accession Number(s): [id number] cc: Lacy Saucedo MD; Name,Kiel BAILEY Report Number: [id number]: Total DLP = 673.00 mGy-cm EXAMINATION: CTA [...] intimal flap. Superior cerebellar arteries are patent. intermediate manager: Normal patency. No focal stenosis. No abrupt [...] 06/18/24 1346 DD/ 1304 TD/TT: 06/18/24 1319 Slot Floorperson: [facility] External Provider IMG CT PROCEDURES Final Result * CT Head Stroke w/o Contrast (06/18/2024 12:57 PM EDT) Anatomical Region Laterality Modality Computed Tomogra phy 06/18/2024 12:5 7 PM EDT Narrative 06/18/2024 1:38 PM EDT ? [facility] ?[address] ?[place] [address] ? CT Scan Report ? Signed ? Patient: Sarita Puga ?MR#: [id number] ?? 92 ? : 1965 ?Acct:[id number] ? Age/Sex: 58 / F ?ADM Date: 06/18/24 ? Loc: HO.ED ? Attending Dr: ? Ordering Physician: Lacy Saucedo MD ?? Date of Service: 06/18/24 ?? Procedure(s): CT head for STROKE ?? Accession Number(s): [id number] ? cc: Lacy Saucedo MD; Name,Kiel BAILEY ? Report Number: ?? [id number]: Total DLP = ??634.00 mGy-cm ?? EXAMINATION: [...] discussed with emergency physician Dr. House ?? [place] at ??1:33 PM hours on 06/18/2024. It [...] DD/ 1257 ? TD/TT: 06/18/24 1302 ? Slot Floorperson: ? Procedure Note Jung Bañuelos - 06/18/[address] [address] [address] Scan Report Signed Patient: Sarita Pgua MMR#: [id number] 92 : 1965Acct:[id number] Age/Sex: 58 / FADM Date: 06/18/24 Loc: HO.ED Attending Dr: Ordering Physician: Lacy Saucedo MD Date of Service: 06/18/24 Procedure(s): CT head for STROKE Accession Number(s): [id number] cc: Lacy Saucedo MD; Name,Kiel Report Number: [id number]: Total DLP = 634.00 mGy-cm EXAMINATION: CT [...] Felix Fall MD 06/18/2024 01:35 PM EDT Dictated By: Felix Mckinnon MD Signed By: <Electronically signed by Felix Tilley MDin OV> 06/18/24 1335 DD/ 1257 TD/TT: 06/18/24 1302 Slot Floorperson: [facility] External Provider IMG CT PROCEDURES Final Result * (ABNORMAL) Lipid Panel with Reflex to Direct LDL (06/18/2024 8:18 AM EDT) Triglycerides 156(H) <150 mg/dL [facility] Comment:Desirable Triglyceri de: less than 150 mg/dLBorderline High Triglyceride 150-199 mg/dLHigh Triglyceride: 200-499 mg/dLVery High Triglyceride: greater than or equal to 5OO mg/dL Cholesterol 185 <200 mg/dL LABS Comment:Desirable Cholestero l: less than 200 mg/dLBorderline High Cholesterol: 200-239 mg/dLHigh Cholesterol: greater than 239 mg/dL LDL Cholesterol Calculated 109(H) <100 mg/dL LAB[facility] Comment:Desirable LDL: less than 100 mg/dLNear Optimal/Above Optimal LDL: 110- 129 mg/dLBorderline High LDL: 130-159 mg/dLHigh LDL: 160-189 mg/dLVery High LDL: greater than or equal to 190 mg/dL HDL Cholesterol 45 >40 mg/dL [facility] Comment:Desirable HDL: great er than 40 mg/dL Note: This HDL assay may give artificially low results in patients with liver disease. 06/18/2024 8:18 AM EDT 06/18/2024 11:00 AM EDT us Kiel Shaffer MD LAB BLOOD ORDERABLES Final Resul t LABS [address] [place] [phone] * Hepatic Function Panel (06/18/2024 8:18 AM EDT) Bilirubin, Total 0.3 0.0 - 1.0 mg/dL LABS Bilirubin, Direct 0.1 0.0 - 0.5 mg/dL LABS Aspartate Amino Transferase 22 5 - 31 U/L LABS Alanine Aminotransferase 31 0 - 31 U/L LABS Total Protein 6.5 6.5 - 8.0 g/dL LABS Albumin Level 4.0 3.5 - 5.0 g/dL LABS Alkaline Phosphatase 72 39 - 117 U/L LABS 06/18/2024 8:18 AM EDT 06/18/2024 11:00 AM EDT us Kiel Name LAB BLOOD ORDERABLES Final Resul t LABS [address] [place] [address] [phone] documented in this encounter Visit Diagnoses Not on filedocumented in this encounter Additional Health Concerns Assessment Noted Time PHQ-9 Depression Total Score: 4 09/02/19 24 10:30 AM EDT documented as of this encounter Care Teams Youth Program Director Relationship Specialty Start Date End Date Name, MD Kiel [address] [place] [address] PCP - General Family Medicine 07/15/15 Katlyn Rodriguez PharmD [address] [place] [address] Pharmacist Internal Medicine 10/08/22 Marta Ovalle Campus Security OfficerPicture Frame Maker 05/25/23 documented as of this encounter
--- OUTSIDE RECORDS SUMMARY | 2024-06-18 16:03 | XMS_ITS | Encounter Summary ---
Author Organization [employer] Address [address] 7t [place] [address] Care Team Providers Care Continuing Education Instructor Name Role Phone Name, Kiel BAILEY Primary Care Provider [phone] Katlyn Rodriguez PharmD Unavailable [phone] Reason for Visit * Reason Comments Med Refill Encounter Details Date Type Department Care Team ([facility] st Contact Info) Description 06/08/2024 Refill [facility] CHC MED & PEDS [address] [place], [place] [phone] Name, MD Kiel [address] [place] [address] Chronic pain syndrome Social History Tobacco Use [...] Description 07/12/2024 9:30 AM EDT Medication Management [address] [address] PuiaReidKatlyn, PharmD [address] [place] [address] 07/27/2024 10:00 AM EDT Office Visit [address] [address] Name, MD Kiel [address] [place] [address] 08/20/2024 9:30 AM EDT Clinical Support [address] [address] Opal Steiner RN documented as of this [...] documented as of this encounter Care Teams Continuing Education Instructor Relationship Specialty Start Date End Date Name, MD Kiel [address] [place] [address] PCP - General Family Medicine 07/15/15 Katlyn Rodriguez, PharmD [address] [place] [address] Pharmacist Internal Medicine 10/08/22 Marta Ovalle Oil Well ShooterChildcare Administrator 05/25/23 documented as of this encounter
--- OUTSIDE RECORDS SUMMARY | 2024-06-18 16:03 | XMS_ITS | Encounter Summary ---
Author Organization [facility] Address [address] [place] [address] Care Team Providers Care Tanning Solution Maker Name Role Phone Name, Kiel BAILEY Primary Care Provider [phone] Encounter Details Date Type Department Care Team Description 09/10/2022 Social Work [facility] Oncology Services [address] [place] [address] Adina Archer, [place] Social History Tobacco Use Types Packs/Day Years [...] on filedocumented in this encounter Care Teams Tanning Solution Maker Relationship Specialty Start Date End Date Name, MD Kiel [address] [place] [address] [address] [place] [address] PCP - General Internal Medicine 04/17/18 documented as of this encounter
--- OUTSIDE RECORDS SUMMARY | 2024-06-18 16:03 | XMS_ITS | Encounter Summary ---
Author Organization [facility] [facility] Address [address] [place] [address] 7t [place] [address] Care Team Providers Care Ep Tech Name Role Phone Name, Kiel BAILEY Primary Care Provider [phone] Katlyn Rodriguez PharmD Unavailable [phone] Encounter Details Date Type Department Care Team ([facility] Contact Info) Description 07/01/2022 Abstract [facility] MEDICINE [address] [place] [address] Name, MD Kiel [address] [place] [address] Social History Tobacco Use Types Packs/Day Years [...] Care Team ([facility] Contact Info) Description 07/12/2024 9:30 AM EDT Medication Management [facility] MEDICINE [address] [place] [address] Katlyn Rodriguez PharmD [address] [place] [address] 07/27/2024 10:00 AM EDT Office Visit [address] [address] Name, MD Kiel [address] [place] [address] 08/20/2024 9:30 AM EDT Clinical Support [address] [address] Opal Steiner, MARINA documented as of this encounter Visit Diagnoses Not on filedocumented in this encounter Care Teams Ep Tech Relationship Specialty Start Date End Date Name, MD Kiel [address] [place] [address] PCP - General Family Medicine 07/15/15 Katlyn Rodriguez, PharmD [address] [place] [address] Pharmacist Internal Medicine 10/08/22 Marta Ovalle Cotton HeaderMillinery Blocker 05/25/23 documented as of this encounter
--- OUTSIDE RECORDS SUMMARY | 2024-06-18 16:03 | XMS_ITS | Encounter Summary ---
Author Organization [employer] [facility] Address [address] [facility] 7t [place] [address] Care Team Providers Care Impact Hammer Operator Name Role Phone Name, Kiel BAILEY Primary Care Provider Katlyn Rodriguez PharmD Unavailable [phone] Encounter Details Date Type Department Care Team ([facility] Contact Info) Description 02/23/2022 Orders Only [facility] [address] [place] [address] Name, MD Kiel [address] [place] [address] Social History Tobacco Use Types Packs/Day Years [...] ([facility] Contact Info) Description 07/12/2024 9:30 AM EDT Medication Management [facility] MEDICINE [address] [place] [address] PuiaKatlyn, PharmD [address] [place] [address] 07/27/2024 10:00 AM EDT Office Visit [address] [address] Name, [place] [address] 08/20/2024 9:30 AM EDT Clinical Support [address] [phone] Opal Steiner, MARINA documented as of this encounter Visit Diagnoses Not on filedocumented in this encounter Care Teams Impact Hammer Operator Relationship Specialty Start Date End Date Name, MD Kiel [address] [place] [address] PCP - General Family Medicine 07/15/15 Katlyn Rodriguez PharmD [address] [place] [address] Pharmacist Internal Medicine 10/08/22 Marta Ovalle Data Processing SpecialistClaims Sorter 05/25/23 documented as of this encounter
--- OUTSIDE RECORDS SUMMARY | 2024-06-18 16:03 | XMS_ITS | Encounter Summary ---
Author Organization [employer] Address [address] [facility] 7t [place] [address] Care Team Providers Care Handbag Stitcher Name Role Phone Name, Kiel BAILEY Primary Care Provider [phone] Katlyn Rodriguez PharmD Unavailable [phone] Encounter Details Date Type Department Care Team ([facility] Contact Info) Description 03/12/2022 Orders Only [facility] CHC MED & PEDS [address] [place], [place] [phone] Millie Sawant LPN Social History Tobacco Use [...] Encounters Date Type Department Care Team ([facility] Contact Info) Description 07/12/2024 9:30 AM EDT Medication Management [facility] MEDICINE [address] [place], [place] [phone] Katlyn Rodriguez, PharmD [address] [place], [place] [phone] 07/27/2024 10:00 AM EDT Office Visit [address] [address] Name, MD [facility] [place] [address] 08/20/2024 9:30 AM EDT Clinical Support [address] [address] Opal Steiner, MARINA documented as of this encounter Visit Diagnoses Not on filedocumented in this encounter Care Teams Handbag Stitcher Relationship Specialty Start Date End Date Name, [place] [address] PCP - General Family Medicine 07/15/15 Katlyn Rodriguez PharmD [address] [place] [address] Pharmacist Internal Medicine 10/08/22 Marta Ovalle Boring Mill OperatorInsert Operator 05/25/23 documented as of this encounter
--- OUTSIDE RECORDS SUMMARY | 2024-06-18 16:03 | XMS_ITS | Encounter Summary ---
Author Organization [facility] Address [address] [place] [address] 7t [place] [address] Care Team Providers Care Survey Researcher Name Role Phone Name, Kiel BAILEY Primary Care Provider [phone] Katlyn Rodriguez PharmD Unavailable [phone] Reason for Visit * Reason Comments Med Refill Encounter Details Date Type Department Care Team (Late Contact Info) Description 07/02/2022 Refill [facility] MEDICINE [address] [place] [address] Name, MD Kiel [address] [place] [address] Chronic pain syndrome Social History Tobacco Use [...] [facility] [place] [facility] Contact Info) Description 07/12/2024 9:30 AM EDT Medication Management [facility] MEDICINE [address] [place] [address] Katlyn Rodriguez PharmD [address] [place] [address] 07/27/2024 10:00 AM EDT Office Visit [address] [address] Name, [place] [address] 08/20/2024 9:30 AM EDT Clinical Support [address] [address] Opal Steiner RN documented as of this encounter Visit Diagnoses Diagnosis Chronic pain syndrome documented in this encounter Care Teams Survey Researcher Relationship Specialty Start Date End Date Name, MD Kiel [address] [place] [address] PCP - General Family Medicine 07/15/15 Katlyn Rodriguez, PharmD [address] [place] [address] Pharmacist Internal Medicine 10/08/22 Marta Ovalle Bit SetterDepalletizer Operator 05/25/23 documented as of this encounter
--- OUTSIDE RECORDS SUMMARY | 2024-06-18 16:03 | XMS_ITS | Encounter Summary ---
Author Organization [employer] Address [address] [facility] 7t [place] [address] Care Team Providers Care Inbound Customer Service Agent Name Role Phone Name, Kiel BAILEY Primary Care Provider [phone] Katlyn Rodriguez PharmD Unavailable [phone] Reason for Visit * Reason Onset Date Comments Medication Problem 08/30/2023 Encounter Details Date Type Department Care Team ([facility] Contact Info) Description 08/30/2023 Telephone [facility] MEDICINE [address] [place], [place] [phone] Name, MD Kiel [address] [place] [address] Medication Problem Social History Tobacco Use Types [...] Description 07/12/2024 9:30 AM EDT Medication Management [address] [address] Katlyn Rodriguez PharmD [address] [place] [address] 07/27/2024 10:00 AM EDT Office Visit [address] [address] Name, MD Kiel [address] [place] [address] 08/20/2024 9:30 AM EDT Clinical Support [address] [address] Opal Steiner, MARINA documented as of this [...] documented as of this encounter Care Teams Inbound Customer Service Agent Relationship Specialty Start Date End Date Name, MD Kiel [address] [place] [address] PCP - General Family Medicine 07/15/15 Katlyn Rodriguez, PharmD [address] [place] [address] Pharmacist Internal Medicine 10/08/22 Marta Ovalle Director Of Flight OperationsHouse Detective 05/25/23 documented as of this encounter
--- OUTSIDE RECORDS SUMMARY | 2024-06-18 16:03 | XMS_ITS | Encounter Summary ---
Author Organization [employer] Address [address] [facility] 7t [place] [address] Care Team Providers Care Computer Technologist Name Role Phone Name, Kiel BAILEY Primary Care Provider [phone] Katlyn Rodriguez PharmD Unavailable [phone] Reason for Visit * Reason Onset Date Comments Durable Medical Equipment 12/06/2022 Encounter Details Date Type Department Care Team ([facility] st Contact Info) Description 12/06/2022 Telephone [facility] MEDICINE 230 [place] [address] Name, MD Kiel [address] [place] [address] Durable Medical Equipment Social History Tobacco Use [...] to message above. Please contact pt at [phone] (Slovenian) * Telephone Encounter - Jean-Paul Finch - 12/06/2022 3:29 PM EDT Tc from pt requesting status on some bed absorbant pads to not stain bed. Please contact pt at [phone] Slovenian Speaker documented in this encounter Plan of Treatment Upcoming Encounters Date Type Department Care Team (Late st Contact Info) Description 07/12/2024 9:30 AM EDT Medication Management [facility] MEDICINE [address] [place] [address] Katlyn Rodriguez, PharmD [address] [place] [address] 07/27/2024 10:00 AM EDT Office Visit [facility] MEDICINE [address] [place] [address] Name, [place] [address] 08/20/2024 9:30 AM EDT Clinical Support [address] [address] Opal Steiner RN documented as of this [...] as of this encounter Care Teams Computer Technologist Relationship Specialty Start Date End Date Name, [place] [address] PCP - General Family Medicine 07/15/15 Puia, Katlyn, PharmD [address] [place] [address] Pharmacist Internal Medicine 10/08/22 Marta Ovalle In Service CoordinatorSafety Fire Boss 05/25/23 documented as of this encounter
--- OUTSIDE RECORDS SUMMARY | 2024-06-18 16:03 | XMS_ITS | Clinical Summary ---
Author Organization [facility] Address [address] [place] [address] Care Team Providers Care Entertainment Usher Name Role Phone Name, Kiel BAILEY Primary Care Provider [phone] Allergies Active Allergy Reactions Criticality Noted Date [...] age to complete this topic Care Teams Entertainment Usher Relationship Specialty Start Date End Date Name, MD Kiel 230 [facility] [place] [address] [place] [address] PCP - General Internal Medicine 04/17/18
--- OUTSIDE RECORDS SUMMARY | 2024-06-18 16:03 | XMS_ITS | Encounter Summary ---
Author Organization [employer] Address [address] [facility] 7t [place] [address] Care Team Providers Care Forging Roll Operator Name Role Phone Name, Kiel BAILEY Primary Care Provider [phone] Katlyn Rodriguez PharmD Unavailable [phone] Reason for Visit * Reason Onset Date Comments Appointment Request 02/29/2024 Encounter Details Date Type Department Care Team ([facility] Contact Info) Description 02/29/2024 Telephone [facility] MEDICINE [address] [place], [place] [phone] Name, MD Kiel [address] [place] [address] Appointment Request Social History Tobacco Use Types [...] different date and time. Pt does speak south african so you will need an spanish interpreter/translator. documented in this encounter Plan of Treatment Upcoming Encounters Date Type Department Care Team (Late st Contact Info) Description 07/12/2024 9:30 AM EDT Medication Management [address] [address] Katlyn Rodriguez, PharmD [address] [place] [address] 07/27/2024 10:00 AM EDT Office Visit [address] [address] Name, MD Kiel [address] [place] [address] 08/20/2024 9:30 AM EDT Clinical Support [address] [address] Opal Steiner, MARINA documented as of this [...] documented as of this encounter Care Teams Forging Roll Operator Relationship Specialty Start Date End Date Name, MD Kiel [address] [place] [address] PCP - General Family Medicine 07/15/15 Puia, Katlyn, PharmD [address] [place] [address] Pharmacist Internal Medicine 10/08/22 Marta Ovalle Game Farm HelperElectrician Ship 05/25/23 documented as of this encounter
--- OUTSIDE RECORDS SUMMARY | 2024-06-18 16:03 | XMS_ITS | Encounter Summary ---
Author Organization [employer] Address [address] [facility] 7t [place] [address] Care Team Providers Care Back Tender Insulation Board Name Role Phone Name, Kiel BAILEY Primary Care Provider [phone] Katlyn Rodriguez PharmD Unavailable [phone] Reason for Visit * Reason Comments Med Refill Encounter Details Date Type Department Care Team ([facility] st Contact Info) Description 06/12/2024 Refill [facility] MEDICINE 230 [place] [address] Katlyn Rodriguez, PharmD 230 [place] [address] Type 2 diabetes mellitus with other specified complication, with long-term current use of insulin ([facility]) Social History Tobacco Use Types Packs/Day Years [...] Description 07/12/2024 9:30 AM EDT Medication Management [address] [address] Katlyn Rodriguez PharmD [address] [place] [address] 07/27/2024 10:00 AM EDT Office Visit [address] [address] Name, MD Kiel [address] [place] [address] 08/20/2024 9:30 AM EDT Clinical Support [address] [address] Opal Steiner RN documented as of this [...] complication, with long-term current use of insulin ([facility]) documented in this encounter Additional Health Concerns Assessment Noted Time PHQ-9 Depression Total Score: 4 09/02/19 24 10:30 AM EDT documented as of this encounter Care Teams Back Tender Insulation Board Relationship Specialty Start Date End Date Name, MD Kiel [address] [place] [address] PCP - General Family Medicine 07/15/15 Katlyn Rodriguez PharmD [address] [place] [address] Pharmacist Internal Medicine 10/08/22 Marta Ovalle Cuprous Chloride OperatorClinical Resource Manager 05/25/23 documented as of this encounter
--- OUTSIDE RECORDS SUMMARY | 2024-06-18 16:03 | XMS_ITS | Encounter Summary ---
Author Organization [employer] Address [address] 7t [place] [address] Care Team Providers Care Asphalt Layer Name Role Phone Name, Kiel BAILEY Primary Care Provider [phone] Katlyn Rodriguez PharmD Unavailable Reason for Visit * Reason Comments Med Refill Encounter Details Date Type Department Care Team ([facility] st Contact Info) Description 06/08/2024 Refill [facility] CHC MED & PEDS [address] [place], [place] [phone] Name, MD Kiel [address] [place] [address] Chronic pain syndrome Social History Tobacco Use [...] Description 07/12/2024 9:30 AM EDT Medication Management [address] [address] PuiaReidKatlyn, PharmD [address] [place] [address] 07/27/2024 10:00 AM EDT Office Visit [address] [address] Name, MD Kiel [address] [place] [address] 08/20/2024 9:30 AM EDT Clinical Support [address] [address] Opal Steiner RN documented as of this [...] documented as of this encounter Care Teams Asphalt Layer Relationship Specialty Start Date End Date Name, MD Kiel [address] [place] [address] PCP - General Family Medicine 07/15/15 Katlyn Rodriguez, PharmD [address] [place] [address] Pharmacist Internal Medicine 10/08/22 Marta Ovalle Mid Level ProviderTrial Judge 05/25/23 documented as of this encounter
--- OUTSIDE RECORDS SUMMARY | 2024-06-18 16:03 | XMS_ITS | Encounter Summary ---
Author Organization [employer] Address [address] [facility] 7t [place] [address] Care Team Providers Care System Safety Engineer Name Role Phone Name, Kiel BAILEY Primary Care Provider [phone] Katlyn Rodriguez PharmD Unavailable [phone] Reason for Visit * Reason Comments Med Refill Encounter Details Date Type Department Care Team ([facility] st Contact Info) Description 06/27/2023 Refill [facility] MEDICINE 230 [place] [address] Katlyn Rodriguez, PharmD [address] [place] [address] Tobacco use disorder Social History Tobacco Use [...] Description 07/12/2024 9:30 AM EDT Medication Management [address] [address] Puia, Katlyn, PharmD [address] [place] [address] 07/27/2024 10:00 AM EDT Office Visit [address] [address] Name, MD Kiel [address] [place] [address] 08/20/2024 9:30 AM EDT Clinical Support [address] [address] Opal Steiner, AMRINA documented as of this encounter Goals Goal [...] documented as of this encounter Care Teams System Safety Engineer Relationship Specialty Start Date End Date Name, MD Kiel [address] [place] [address] PCP - General Family Medicine 07/15/15 Katlyn Rodriguez, Bin [address] [place] [address] Pharmacist Internal Medicine 10/08/22 Marta Ovalle Manufacturing Area ManagerProject Officer 05/25/23 documented as of this encounter
--- OUTSIDE RECORDS SUMMARY | 2024-06-18 16:03 | XMS_ITS | Encounter Summary ---
Author Organization [employer] Address [address] [facility] 7t [place] [address] Care Team Providers Care Sales Clerk Name Role Phone Name, Kiel BAILEY Primary Care Provider [phone] Katlyn Rodriguez PharmD Unavailable [phone] Reason for Referral * Consultation (Routine) - Authorized Specialty Diagnoses / Procedures Referred By Contac t Referred To Contact Physiatry Diagnoses Acute left-sided thoracic back pain Victorino Graves MD [address] [place] [address] Phone: tel: fax: [facility] [address] [facility] [address] [place], [place] Phone: tel: fax: Referral ID Status Reason Start Date Expiration Date Visits Requested Visits Authorized [id number] Authorized Specialty Services Required 06/15/2024 06/15/2025 20 20 * Consultation (Urgent) - Closed Specialty Diagnoses / Procedures Referred By Contac t Referred To Contact Physical Therapy Diagnoses Acute left-sided thoracic back pain Victorino Graves MD [address] [place] [address] Phone: tel: fax: [facility] [address] [place], [place] Phone: tel: fax: Referral ID Status Reason Start Date Expiration Date V isits Requested Visits Authorized [id number] Closed Specialty Services Required 06/15/2024 06/15/2025 20 20 Reason for Visit * Reason Comments Back Pain Hypoglycemia Encounter Details Date Type Department Care Team (Late st Contact Info) Description 06/15/2024 8:40 AM EDT Office Visit [facility] [address] [place] [address] Victorino Graves MD [address] [place] [address] Acute left-sided thoracic back pain (Primary Dx) [...] lesser extent L5-S1. Has been followed at [facility] in past. Sarita returns to walk-in clinic [...] clinic. Referred back to physical therapy and [facility]. She was unable to give urine sample for urine culture, and [facility]. Return to clinic if not improving - POCT glucose manually resulted - ketorolac (Toradol) injection 30 mg - Culture, Urine, Routine - Referral to Physical Therapy; Future documented in this encounter Plan of Treatment Upcoming Encounters Date Type Department Care Team (Late st Contact Info) Description 07/12/2024 9:30 AM EDT Medication Management [address] [address] Katlyn Rodriguez PharmD [address] [place] [address] 07/27/2024 10:00 AM EDT Office Visit [address] [address] Name, MD Kiel [address] [place] [address] 08/20/2024 9:30 AM EDT Clinical Support [address] [address] Opal Steiner, RN Scheduled Referrals Name Type [...] pressure once per day Blood Pressure No Kaltyn Rodriguez, PharmD Blood Pressure < 140/90 Blood [...] EDT 06/15/2024 4:02 PM EDT Comment:[facility]ACC Narrative [facility] - 06/17/2024 10:56 AM EDT Urine Culture Report Result Urine Culture 50,000 to 100,000 cfu/ml Urine Culture Mixed bacterial princess characteristic of Urine Culture urogenital contamination. Specimen Source: Urine clean catch us Victorino Graves MD LAB MICROBIOLOGY - GENERAL ORDER JONY Final Result [facility] [address] [place] [phone] * POCT glucose manually resulted (06/15/2024 [...] as of this encounter Care Teams Sales Clerk Relationship Specialty Start Date End Date Name, MD Kiel [address] [place] [address] PCP - General Family Medicine 07/15/15 Katlyn Rodriguez PharmD [address] [place] [address] Pharmacist Internal Medicine 10/08/22 Marta Ovalle Wardrobe ConsultantDirector Of Litigation 05/25/23 documented as of this encounter
--- OUTSIDE RECORDS SUMMARY | 2024-06-18 16:03 | XMS_ITS | Encounter Summary ---
Author Organization [employer] Address [address] [place] [address] 7t [place] [address] Care Team Providers Care Installer Interior Assemblies Name Role Phone Name, Kiel BAILEY Primary Care Provider [phone] Katlyn Rodriguez PharmD Unavailable [phone] Reason for Visit * Reason Comments Med Refill Encounter Details Date Type Department Care Team ([facility] Contact Info) Description 02/10/2022 Refill [facility] PEDS [address], [place] [id number] Name, MD Kiel [address] [place] [address] Chronic pain syndrome (Primary Dx) Social History [...] Upcoming Encounters Date Type Department Care Team ([facility] Contact Info) Description 07/12/2024 9:30 AM EDT Medication Management [facility] MEDICINE [address] [place] [id number] Katlyn Rodriguez PharmD [address] [place] [phone] 07/27/2024 10:00 AM EDT Office Visit [address] [address] Name, MD Kiel [address] [place] [phone] 08/20/2024 9:30 AM EDT Clinical Support [address] [address] Opal Steiner RN documented as of this encounter Visit Diagnoses Diagnosis Chronic pain syndrome- Primary documented in this encounter Care Teams Installer Interior Assemblies Relationship Specialty Start Date End Date Name, MD Kiel [address] [place] [id number] PCP - General Family Medicine 07/15/15 Katlyn Rodriguez, PharmD [address] [place] [id number] Pharmacist Internal Medicine 10/08/22 Marta Ovalle Plasterer [employer] Sales Representative 05/25/23 documented as of this encounter
--- OUTSIDE RECORDS SUMMARY | 2024-06-18 16:03 | XMS_ITS | Encounter Summary ---
Author Organization [facility] Address [address] [place] [address] 7t [place] [address] Care Team Providers Care Culinary Manager Name Role Phone Name, Kiel BAILEY Primary Care Provider [phone] Katlyn Rodriguez PharmD Unavailable Reason for Visit * Reason Comments Med Refill Encounter Details Date Type Department Care Team (Late Contact Info) Description 04/25/2022 Refill [facility] MEDICINE [address] [place] [id number] Name, MD Kiel [address] [place] [phone] Diabetes mellitus type 2 in obese (CMS/HCC) [...] Upcoming Encounters Date Type Department Care Team ([facility] Contact Info) Description 07/12/2024 9:30 AM EDT Medication Management [address] [address] Katlyn Rodriguez PharmD [facility] [place] [address] 07/27/2024 10:00 AM EDT Office Visit [address] [address] Name, MD Kiel [facility] [place] [address] 08/20/2024 9:30 AM EDT Clinical Support [address] [address] Opal Steiner RN documented as of this encounter Visit Diagnoses Diagnosis Diabetes mellitus type 2 in obese- Primary Type II or unspecified type diabetes mellitus without mention of complication, not stated as uncontrolled documented in this encounter Care Teams Culinary Manager Relationship Specialty Start Date End Date Name, MD K[facility] [place] [address] PCP - General Family Medicine 07/15/15 Katlyn Rodriguez PharmD [address] [place], [place] [address] [address] Pharmacist Internal Medicine 10/08/22 Marta Ovalle Job Change Crew MemberArmoured Car Escort 05/25/23 documented as of this encounter
--- NOTE | 2024-06-18 16:07 | PM.NEUROCN ---
History of Present Illness Data of Consult Service Date: 06/18/24 Primary Care Provider: MD KENAN Mccord Reason for consult: Headache 58 years old woman with history of migraine type of headaches came to hospital with severe headache which she described as worse than before. In emergency room she was noted to have mild left-sided facial weakness and had brain imaging done. Head CT revealed a possible new finding and she was admitted. There was no complaint of any weakness or seizure. Review of Systems Review of Systems: No recent cold or flu-like PMFSH Past Medical History Medical History Exposure to rabies Lymphoma Restrictive lung disease secondary to obesity COPD (chronic obstructive pulmonary disease) Nocturnal hypoxemia DRE (obstructive sleep apnea) Cough Nicotine dependence, cigarettes, uncomplicated Allergic rhinitis Morbid obesity Hyperlipidemia GERD (gastroesophageal reflux disease) Tubular adenoma Chronic idiopathic constipation IBS (irritable bowel syndrome) Back pain Depression Family History Family History Mother Diabetes Heart muscle disorder caused by another medical condition Father Diabetes Epilepsy Sister No problems noted. Sister No problems noted. Sister No problems noted. Sister No problems noted. Sister No problems noted. Brother No problems noted. Brother No problems noted. Brother No problems noted. Brother No problems noted. Brother No problems noted. Brother No problems noted. Daughter No problems noted. Daughter No problems noted. Son No problems noted. Son No problems noted. Son No problems noted. Surgical History Surgical History History of total right knee replacement (TKR) History of appendectomy (~1978) History of (~1986) History of hysterectomy (~1995) History of lithotripsy (~2018) History of carpal tunnel surgery of right wrist (~2020) History of colonoscopy History of esophagogastroduodenoscopy (EGD) Social History Social History Are you a primary director long term care to a significant other at home: No Do you presently have visiting nurse or other home services: No Alcohol intake: current Alcohol intake frequency: a few times a week Patient Tobacco Use Status: Current everyday Tobacco user Cigarette Packs Per Day: 1 Years Smoked: (onset 13yo, x 42yrs, max 2ppd, now 1/2ppd - 30PYH) Smoked in Last 30 Days: Yes Use of substances other than those prescribed or required for medical reasons: Yes Substance Use Type: Marijuana Substance Use Frequency: Chronic Longstanding Advance Directives: No Advance Directives Information Provided: Yes Current occupational status: disabled Current occupation: rt handed Meds Allergies Allergy/AdvReac Type Severity Reaction Status Date / Time penicillin G [Penicillin G] Allergy Mild SWELLING Verified 06/18/24 12:56 barium sulfate Allergy Unknown HIVES Verified 06/18/24 12:56 [ORAL CONTRAST] cephalexin Allergy Unknown Unknown Verified 06/18/24 12:56 Active Medications: Current Medications Acetaminophen (Acetaminophen 325 Mg Tablet) 650 mg PO Q6H PRN PRN Reason: Pain, Mild 1-3,fever,headache Calcium Carbonate (Calcium Carbonate 750 Mg Tab.Chew) 750 mg PO Q4H PRN PRN Reason: Heartburn Magnesium Hydroxide (Milk Of Magnesia 30 Ml Oral.Susp) 30 ml PO DAILY PRN PRN Reason: Constipation Melatonin (Melatonin 3 Mg Tablet) 6 mg PO BEDTIME PRN PRN Reason: Insomnia Sodium Chloride (0.9 % Sodium Chloride Flush 3 Ml Syringe) 3 ml IVFLUSH QSHIFT [facility] Last Admin: 06/18/24 16:03 Dose: 3 ml Home Medications ?Medication ?Instructions ?Recorded ?Confirmed ?Last Taken ?Type montelukast 10 mg tablet 10 mg PO BEDTIME 02/13/20 02/20/24 Unknown History (Singulair) insulin lispro 200 unit/mL (3 mL) See Protocol subcut TIDAC 12/05/20 02/20/24 Unknown History subcutaneous pen (Humalog KwikPen U-200 Insulin) paroxetine HCl 40 mg tablet 40 mg PO BEDTIME 12/05/20 02/20/24 Unknown History pen needle, diabetic 32 gauge x #50 ea 12/05/20 02/20/24 Unknown History (Pentips Pen Needle) nortriptyline 10 mg capsule 10 mg PO BEDTIME 05/21/21 02/20/24 Unknown History insulin glargine 100 unit/mL (3 28 unit subcut DAILY 05/26/21 02/20/24 Unknown History mL) subcutaneous pen (Lantus Solostar U-100 Insulin) multivitamin (One Daily 1 tab PO QAM 05/26/21 02/20/24 Unknown History Multivitamin tablet) gabapentin 600 mg tablet 600 mg PO TID 04/21/22 02/20/24 Unknown History lidocaine 5 % topical patch 1 patch topical DAILY 04/21/22 02/20/24 Unknown History metoprolol succinate 25 mg 25 mg PO DAILY 04/21/22 02/20/24 Unknown History tablet,extended release 24 hr oxcarbazepine 300 mg tablet 450 mg PO BID 04/21/22 02/20/24 Unknown History clonidine HCl 0.1 mg tablet 0.1 mg PO BEDTIME 07/08/22 02/20/24 Unknown History dulaglutide 1.5 mg/0.5 mL 3 mg subcut QWEEK 07/08/22 02/20/24 01/05/23 History subcutaneous pen injector (Trulicity) aspirin 81 mg chewable tablet 1 tab PO BEDTIME 01/05/23 02/20/24 Unknown History atorvastatin 80 mg tablet 80 mg PO BEDTIME 01/05/23 02/20/24 Unknown History metformin 500 mg tablet,extended 500 mg PO BEDTIME 01/05/23 02/20/24 Unknown History release 24 hr albuterol sulfate 90 mcg/actuation 2 puff inhalation Q4-6H PRN 06/18/24 Unknown History aerosol inhaler (Ventolin HFA) wheezing baclofen 10 mg tablet 10 mg PO TID PRN muscle spasm 06/18/24 Unknown History calcium 600 mg (as 1 tab PO BID 06/18/24 Unknown History carbonate)-vitamin D3 5 mcg (200 unit) tablet ezetimibe 10 mg tablet 10 mg PO DAILY 06/18/24 Unknown History famotidine 20 mg tablet 20 mg PO BID 06/18/24 Unknown History furosemide 20 mg tablet 20 mg PO DAILY 06/18/24 Unknown History icosapent ethyl 1 gram capsule 2 g PO BID 06/18/24 Unknown History losartan 50 mg tablet 50 mg PO DAILY 06/18/24 Unknown History meloxicam 7.5 mg tablet 7.5 mg PO DAILY 06/18/24 Unknown History oxcarbazepine 150 mg tablet 150 mg PO DAILY 06/18/24 Unknown History oxycodone 10 mg tablet 10 mg PO Q12H PRN severe pain 06/18/24 Unknown History tirzepatide 15 mg/0.5 mL 15 mg subcut QWEEK 06/18/24 Unknown History subcutaneous pen injector (Lurdes) trazodone 100 mg tablet 100 mg PO BEDTIME PRN insomnia 06/18/24 Unknown History Physical Exam Vital Signs: Vital Signs: Last Vital Signs Temp 97.8 F 06/18/24 15:54 Pulse 67 06/18/24 15:54 Resp 12 06/18/24 15:54 BP 103/86 06/18/24 15:54 Pulse Ox 98 06/18/24 15:54 O2 Del Method Room Air 06/18/24 14:00 BMI result Body Mass Index 42.5 Neuro: Other: She is alert and awake with normal spontaneity of speech fluency comprehension and affect. There is mild left-sided facial weakness. There was no focal arm or leg weakness. Plantars are flexor. Speech is normal. Extraocular muscles were intact. Visual knight are full. Results Labs 06/18/24 13:18 06/18/24 13:18 Labs: Short CBC 06/18/24 Range/Units 13:18 WBC 5.6 (4.8-10.8) X10*3/uL Hgb 12.2 (12.0-16.0) g/dl Hct 38.2 (37.0-47.0) % Plt Count 129 L (160-400) X10*3/uL BMP 06/18/24 13:18 Sodium 138 Potassium 3.7 Chloride 104 Carbon Dioxide 27 BUN 14 Creatinine 0.[address] revealed a right cerebellar peduncle mixed density lesion. Assessment and Plan (1) Brain lesion: Status: Acute Right cerebral peduncle area mixed density lesion with severe headache. Consider malignancy versus subacute hemorrhage. MRI of brain with and without contrast is recommended for better definition. Procedures Date of Service Date of Service: 06/18/24
--- NOTE | 2024-06-18 17:41 | PHA.MEDREC ---
Addendum entered by Ruma Connell [facility] 06/18/24 17:43: pt also has no claims for Linzess, not filled at [facility] or [facility] after speaking with them, left off of list. Original Note: Pharmacy Consult ? Medication Reconciliation Pharmacy has completed the medication reconciliation, Sacha tried to speak to patient who said she brought in a list but EMT lost it. Pt's daughter was at bedside, was not sure of medications and patient tried to find list but was unsuccessful. Pt said she takes everything as is in her med box. Got list from [facility], utilized list and most recently filled items to confirm list.
--- NOTE | 2024-06-18 17:49 | PC.NURSE ---
Per provider give 10mg Valium prior to going to MRI
[2024-06-18] MEDS: diazePAM 10 MG/2 ML CARTRIDGE IVPUSH (19:05)
[2024-06-18] MEDS: gadobutroL 10 ML VIAL IVPUSH (20:15)
[2024-06-18 21:35] LABS: Glucose, Whole Blood 177 mg/dL (60-115)
[2024-06-18] MEDS: Acetaminophen 325 MG TABLET 650 MG PO (21:45)
[2024-06-19] VITALS (9 sets, daily range): BP systolic 106–127; BP diastolic 54–79; PULSE 65–76; RESP 14–18; TEMP 36–36.4; O2SAT 92–98
--- NOTE | 2024-06-19 | PC.NURSE ---
Pt has new L facial droop not present on previous neuro checks. MD notified. No orders presently.
[2024-06-19 00:01] LABS: Glucose, Whole Blood 171 mg/dL (60-115)
[2024-06-19] MEDS: diphenhydrAMINE HCL 50 MG/ML VIAL 25 MG IVPUSH (00:54)
[2024-06-19] MEDS: Melatonin 3 MG TABLET 6 MG PO (02:45)
[2024-06-19] MEDS: HYDROmorphone HCl 1 MG/ML SYRINGE IVPUSH ×4 (04:33→23:52)
[2024-06-19 06:31] LABS: Anion Gap 12 (12-20); Blood Urea Nitrogen 14 mg/dL (9-16); Calcium 8.7 mg/dL (8.4-10.2); Carbon Dioxide 26 mmol/L (22-29); Chloride 104 mmol/L (96-108); Creatinine Clr Calc Pharmacy 131.2; Estimated Glomerular Filt Rate > 60; Glucose Random 119 mg/dL (60-115); Potassium 4.1 mmol/L (3.3-5.1); Sodium 138 mmol/L (135-145)
[2024-06-19] MEDS: 0.9 % Sodium Chloride Flush 3 ML SYRINGE IVFLUSH ×3 (07:41→21:36)
[2024-06-19] MEDS: Fluticasone/Vilanterol 100/25 BLST.W.DEV 1 PUFF INHALE (07:49)
[2024-06-19] MEDS: Calcium + Vitamin D 250 MG TABLET 500 MG PO ×2 (08:27→21:35)
[2024-06-19] MEDS: oxyCODONE HCl Immed Release 5 MG TABLET 10 MG PO (08:27)
[2024-06-19] MEDS: Ezetimibe 10 MG TABLET PO (08:28)
[2024-06-19] MEDS: Losartan Potassium 50 MG TABLET PO (08:28)
[2024-06-19] MEDS: Loratadine 10 MG TABLET PO (08:28)
[2024-06-19] MEDS: OXcarbazepine 150 MG TABLET PO (08:28)
[2024-06-19] MEDS: Pyridoxine HCl (Vitamin B6) 50 MG TABLET 100 MG PO (08:28)
[2024-06-19] MEDS: Famotidine 20 MG TABLET PO ×2 (08:28→21:35)
[2024-06-19] MEDS: Furosemide 20 MG TABLET PO (08:28)
--- NOTE | 2024-06-19 09:08 | MHC.CM.PN ---
Addendum entered by Jaki Hay 06/19/24 09:12: HCP is on file. Original Note: DC Plan is pending PT Eval; CM has initiated and will follow for dc planning. Patient lives in a 3rd floor apartment with her Grandson, where the elevator is currently not working. PCP is Dr. Dyson Name and transportation is TBD by final dc plan.
--- NOTE | 2024-06-19 10:43 | MHC.CM.PN ---
PT is recommending STR; CM will follow.
[2024-06-19] MEDS: diphenhydrAMINE HCL 25 MG CAPSULE PO ×2 (10:52→14:30)
[2024-06-19] MEDS: Albuterol/Iprat 2.5/0.5MG 3 ML AMPUL.NEB INHALE ×2 (11:24→19:38)
[2024-06-19] MEDS: ondansetron HCL 4 MG/2 ML VIAL IVPUSH (12:18)
[2024-06-19] MEDS: Nicotine 21 MG PATCH.TD24 TRANSDERMA (12:35)
[2024-06-19] MEDS: dexAMETHasone sod phosphate 4 MG/ML VIAL IVPUSH (12:36)
--- NOTE | 2024-06-19 13:31 | HO.PM.IMPN ---
Subjective Subjective Date of Service: 06/19/24 Interval History: MRI results reviewed with Neurology. More likely suspicious lesion then hemorrhage. Review of Systems Denies chest pain Denies shortness of breath Denies nausea vomiting diarrhea Denies fever chills Physical Exam Vital Signs: Vital Signs: Last Vital Signs Temp 96.8 F 06/19/24 10:59 Pulse 72 06/19/24 11:27 Resp 15 06/19/24 11:27 BP 116/58 L 06/19/24 10:59 Pulse Ox 97 06/19/24 10:59 O2 Del Method Room Air 06/19/24 10:59 BMI result Body Mass Index 40.8 Const: Other: Awake alert uncomfortable appearing Resp: Other: Diminished throughout with scattered rhonchi that clear with cough Cardio: Other: No S4; positive S1-S2; no S3 murmurs rubs or gallops GI: Other: Soft nontender nondistended normoactive bowel sounds Neuro: Other: Cranial nerves 2-12 grossly intact as tested. Motor is 5/5 all extremities. Sensation decreased left side of face but otherwise unremarkable. Cognition appropriate. Gait not examined Extrem: Other: No edema bilaterally Objective Data Active Medications Acetaminophen (Acetaminophen 325 Mg Tablet) 650 mg PO Q6H PRN PRN Reason: Pain, Mild 1-3,fever,headache Last Admin: 06/18/24 21:45 Dose: 650 mg Documented By: TOMASA Albuterol Sulfate (Albuterol Sulfate (0.083%) 2.5 Mg/3 Ml Vial.Neb) 2.5 mg INHALE Q4H PRN PRN Reason: shortness of breath or wheezing Albuterol Sulfate (Albuterol Sulfate (0.042%) 1.25 Mg/3 Ml Vial.Neb) 1.25 mg INHALE Q4H PRN PRN Reason: dyspnea Albuterol Sulfate (Albuterol Sulfate 90 Mcg 8 Gm Inhaler) 2 puff INHALE Q4H PRN PRN Reason: wheezing Albuterol/Ipratropium (Albuterol/Iprat 2.5/0.5mg 3 Ml Ampul.Neb) 3 ml INHALE RQ6H CLAUDETTE Last Admin: 06/19/24 11:24 Dose: 3 ml Documented By: ASHLY Atorvastatin Calcium (Atorvastatin Calcium 80 Mg Tablet) 80 mg PO BEDTIME CLAUDETTE Baclofen (Baclofen 10 Mg Tablet) 10 mg PO TID PRN PRN Reason: muscle spasm Calcium Carbonate (Calcium Carbonate 750 Mg Tab.Chew) 750 mg PO Q4H PRN PRN Reason: Heartburn Calcium Carbonate/Cholecalciferol (Calcium + Vitamin D 250 Mg Tablet) 500 mg PO BID [facility] Last Admin: 06/19/24 08:27 Dose: 500 mg Documented By: ANTHONY Clonidine HCl (Clonidine Hcl 0.1 Mg Tablet) 0.1 mg PO BEDTIME [facility]; Protocol Diphenhydramine HCl (Diphenhydramine Hcl 25 Mg Capsule) 25 mg PO Q4H PRN PRN Reason: Itching Last Admin: 06/19/24 10:52 Dose: 25 mg Documented By: ANTHONY Ezetimibe (Ezetimibe 10 Mg Tablet) 10 mg PO DAILY [facility] Last Admin: 06/19/24 08:28 Dose: 10 mg Documented By: ANTHONY Famotidine (Famotidine 20 Mg Tablet) 20 mg PO BID [facility] Last Admin: 06/19/24 08:28 Dose: 20 mg Documented By: ANTHONY Fluticasone/Vilanterol (Fluticasone/Vilanterol 100/25 Blst.W.Dev) 1 puff INHALE DAILY [facility] Last Admin: 06/19/24 07:49 Dose: 1 puff Documented By: ASHLY Furosemide (Furosemide 20 Mg Tablet) 20 mg PO DAILY [facility]; Protocol Last Admin: 06/19/24 08:28 Dose: 20 mg Documented By: ANTHONY Gabapentin (Gabapentin 600 Mg Tablet) 600 mg PO TID PRN PRN Reason: Pain, Moderate(Pain Scale 4-6) Hydromorphone HCl (Hydromorphone Hcl 1 Mg/Ml Syringe) 1 mg IVPUSH Q4H PRN; Protocol PRN Reason: Pain, Severe (Pain Scale 7-10) Last Admin: 06/19/24 04:33 Dose: 1 mg Documented By: TOMASA Loratadine (Loratadine 10 Mg Tablet) 10 mg PO DAILY [facility] Last Admin: 06/19/24 08:28 Dose: 10 mg Documented By: ANTHONY Losartan Potassium (Losartan Potassium 50 Mg Tablet) 50 mg PO DAILY [facility]; Protocol Last Admin: 06/19/24 08:28 Dose: 50 mg Documented By: ANTHONY Magnesium Hydroxide (Milk Of Magnesia 30 Ml Oral.Susp) 30 ml PO DAILY PRN PRN Reason: Constipation Melatonin (Melatonin 3 Mg Tablet) 6 mg PO BEDTIME PRN PRN Reason: Insomnia Last Admin: 06/19/24 02:45 Dose: 6 mg Documented By: TOMASA Metoprolol Succinate (Metoprolol Succinate Er 25 Mg Tab.Er.24h) 25 mg PO BEDTIME [facility]; Protocol Montelukast Sodium (Montelukast Sodium 10 Mg Tablet) 10 mg PO BEDTIME CLAUDETTE Nicotine (Nicotine 21 Mg Patch.Td24) 21 mg TRANSDERMA DAILY [facility] Last Admin: 06/19/24 12:35 Dose: 21 mg Documented By: JAGDEEP Ondansetron HCl (Ondansetron Hcl 4 Mg/2 Ml Vial) 4 mg IVPUSH Q6H PRN PRN Reason: Nausea and Vomiting Last Admin: 06/19/24 12:18 Dose: 4 mg Documented By: JAGDEEP Oxcarbazepine (Oxcarbazepine 150 Mg Tablet) 150 mg PO DAILY [facility] Last Admin: 06/19/24 08:28 Dose: 150 mg Documented By: ANTHONY Oxcarbazepine (Oxcarbazepine 150 Mg Tablet) 450 mg PO BEDTIME CLAUDETTE Oxycodone HCl (Oxycodone Hcl Immed Release 5 Mg Tablet) 10 mg PO Q3H PRN PRN Reason: Pain, Moderate(Pain Scale 4-6) Paroxetine HCl (Paroxetine Hcl 40 Mg Tablet) 40 mg PO BEDTIME CLAUDETTE Pyridoxine HCl (Pyridoxine Hcl (Vitamin B6) 50 Mg Tablet) 100 mg PO DAILY [facility] Last Admin: 06/19/24 08:28 Dose: 100 mg Documented By: ANTHONY Sodium Chloride (0.9 % Sodium Chloride Flush 3 Ml Syringe) 3 ml IVFLUSH QSHIFT [facility] Last Admin: 06/19/24 07:41 Dose: 3 ml Documented By: ANTHONY Trazodone HCl (Trazodone Hcl 100 Mg Tablet) 100 mg PO BEDTIME PRN PRN Reason: insomnia Labs 06/18/24 13:18 06/19/24 05:57 Labs: Laboratory Results - last 24 hr 06/18/24 06/18/2425 13:18 21:24 23:58 PT 11.8 INR 1.0 APTT 31.1 Anion Gap 11 L Estim Creat Clear Calc 120.9 Estimated GFR > 60 POC Glucose 177 H 171 H Random Glucose 217 H Calcium 9.2 Triglycerides 205 H Cholesterol 161 LDL Cholesterol, Calc 83 HDL Cholesterol 37 L 06/19/24 05:57 PT INR APTT Anion Gap 12 Estim Creat Clear Calc 131.2 Estimated GFR > 60 POC Glucose Random Glucose 119 H Calcium 8.7 Triglycerides Cholesterol LDL Cholesterol, Calc HDL Cholesterol Assessment and Plan (1) Brain lesion: Status: Acute Plan 58-year-old female awoke from sleep at 03:00 with the worst headache of her life. This was accompanied by mild left-sided facial paresthesias. Presented to the emergency room where CAT scan demonstrated a 1 cm hypodense right cerebral peduncle lesion concerning for subacute hemorrhage. 1. Right cerebellar lesion -Decadron 4 mg daily x2 doses; then 2 mg daily -hold aspirin at this time -follow up with Neurology as outpatient -oxycodone/morphine for headache as needed 2. Diabetes type 2 -fair control at present. Question compliance -lispro correctional scale -diabetic diet -adjust therapies as indicated -add back basal insulin in a.m. as indicated 3. Hypertension -acceptable control on current therapies -continue same and adjust as indicated 4. COPD -appears stable and well compensated -continue outpatient therapies -DuoNebs q.4 PRN Pneumatics Full Code Patient will require ongoing hospitalization for IV Decadron to treat acute cerebellar lesion Quality Stroke Does the patient have a stroke diagnosis?: No VTE Prior VTE?: No VTE Risk Level:: Medical - moderate - high VTE Device Contraindication: N/A - Device Ordered VTE Drug Contraindication: Treatment Not Indicated
[2024-06-19] MEDS: Atorvastatin Calcium 80 MG TABLET PO (21:35)
[2024-06-19] MEDS: Metoprolol Succinate ER 25 MG TAB.ER.24H PO (21:35)
[2024-06-19] MEDS: Montelukast Sodium 10 MG TABLET PO (21:35)
[2024-06-19] MEDS: OXcarbazepine 150 MG TABLET 450 MG PO (21:35)
[2024-06-19] MEDS: cloNIDine HCL 0.1 MG TABLET PO (21:35)
[2024-06-19] MEDS: Milk of Magnesia 30 ML ORAL.SUSP PO (21:35)
[2024-06-19] MEDS: PARoxetine HCL 40 MG TABLET PO (21:35)
[2024-06-20] VITALS (7 sets, daily range): BP systolic 110–140; BP diastolic 56–80; PULSE 62–65; RESP 15–16; TEMP 36.3–36.6; O2SAT 94–97
[2024-06-20] MEDS: HYDROmorphone HCl 1 MG/ML SYRINGE IVPUSH (04:59)
[2024-06-20] MEDS: Albuterol/Iprat 2.5/0.5MG 3 ML AMPUL.NEB INHALE ×2 (06:08→11:15)
[2024-06-20 07:07] LABS: Glucose, Whole Blood 148 mg/dL (60-115)
[2024-06-20] MEDS: Fluticasone/Vilanterol 100/25 BLST.W.DEV 1 PUFF INHALE (07:59)
[2024-06-20] MEDS: Losartan Potassium 50 MG TABLET PO (08:58)
[2024-06-20] MEDS: Furosemide 20 MG TABLET PO (08:58)
[2024-06-20] MEDS: Calcium + Vitamin D 250 MG TABLET 500 MG PO (08:58)
[2024-06-20] MEDS: Ezetimibe 10 MG TABLET PO (08:58)
[2024-06-20] MEDS: Nicotine 21 MG PATCH.TD24 TRANSDERMA (08:59)
[2024-06-20] MEDS: Pyridoxine HCl (Vitamin B6) 50 MG TABLET 100 MG PO (08:59)
[2024-06-20] MEDS: Loratadine 10 MG TABLET PO (09:02)
[2024-06-20] MEDS: Famotidine 20 MG TABLET PO (09:02)
[2024-06-20] MEDS: OXcarbazepine 150 MG TABLET PO (09:02)
[2024-06-20] MEDS: 0.9 % Sodium Chloride Flush 3 ML SYRINGE IVFLUSH (09:03)
[2024-06-20] MEDS: dexAMETHasone sod phosphate 4 MG/ML VIAL IVPUSH (09:49)
[2024-06-20] MEDS: oxyCODONE HCl Immed Release 5 MG TABLET 10 MG PO (09:56)
[2024-06-20 11:36] LABS: Glucose, Whole Blood 143 mg/dL (60-115)
[2024-06-20 12:47] LABS: Prothrombin Time Whole Blood 11.8 sec (11.1-13.5)
--- NOTE | 2024-06-20 13:09 | PM.DS ---
DS: Providers Provider Date of Service: 06/20/24 Date of admission: 06/18/24 14:01 Date of discharge: 06/20/24 Primary care physician: Kiel Shaffer MD Consults: 06/18/24 14:04 Consult to Neurology Routine Consulting Provider: [facility] Reason for consultation: ?subacute hemorrhage CVA DS: Diagnosis Discharge Diagnosis (1) Brain lesion: Status: Acute DS: Summary Hospital Course Hospital Course: 58-year-old female awoke this morning at 03:00 with left-sided headache along with left facial numbness and weakness. She states this is the worst headache of her life . She complains of no other weakness or deficit. CAT scan in the emergency room questionable for 1 cm hyperintense attenuation right cerebral peduncle question subacute hemorrhage. Neurology phone consulted and recommended MRI for further delineation. Patient is admitted to telemetry where monitor failed to demonstrate any acute abnormalities. Seen by Neurology who recommended MRI. MRI consistent with cerebellar lesion. She received 2 doses IV Decadron and will be sent home with [address] Villaseñor's office will call her for a follow up appointment and she can follow up with the PCP at the next available. Her headache was managed with 10 mg oxycodone; she takes 2 daily from her PCP. She was given 30 to increase the frequency to t.i.d. for 1 month. Further dosing per PCP Time Attestation Discharge Coordination Time (in mins): 35 Quality: Safe Use of Opioids Does Pt have an Active Cancer Diagnosis on the Problem List?: No Quality: Stroke Does the patient have a stroke diagnosis?: Yes Reason for No Anti-thrombotic at DC: Drug treatment not indicated Reason for No Anticoagulant at DC: Drug treatment not indicated Reason Not Initiating IV-Tpa: Drug treatment not indicated Reason for No Anti-thrombotic by Day Two: Drug treatment not indicated Reason for No Statin at DC: N/A - Med Ordered Physical Exam Vital Signs: Vital Signs: Last Vital Signs Temp 97.8 F 06/20/24 11:06 Pulse 65 06/20/24 11:16 Resp 15 06/20/24 11:16 BP 140/80 H 06/20/24 11:06 Pulse Ox 96 06/20/24 11:06 O2 Del Method Room Air 06/20/24 11:06 BMI result Body Mass Index 40.8 Const: Other: Awake alert uncomfortable appearing Resp: Other: Diminished throughout with scattered rhonchi that clear with cough Cardio: Other: No S4; positive S1-S2; no S3 murmurs rubs or gallops GI: Other: Soft nontender nondistended normoactive bowel sounds Neuro: Other: Cranial nerves 2-12 grossly intact as tested. Motor is 5/5 all extremities. Sensation decreased left side of face but otherwise unremarkable. Cognition appropriate. Gait not examined Extrem: Other: No edema bilaterally DS: Data Data Completed and Pending Labs on day of discharge: Laboratory Results - last 24 hr 06/20/24 06/20/24 06/20/24 07:04 11:13 12:47 PT (Fingerstick) 11.8 INR (Fingerstick) 1.0 POC Glucose 148 H 143 H Discharge Plan Discharge Anticipated Discharge Date/Time: 06/20/24 12:57 Patient Disposition: Home, Self-Care Discharge Diagnosis: Right cerebellar lesion Referrals: Name,MD Kiel [Primary Care Provider] - 1 Week Discharge Medications: New oxycodone 10 mg tablet 10 mg PO DAILY PRN (Reason: headache) Qty: 30 0RF Rx Instructions: Partial Fill upon patient request. dexamethasone 4 mg tablet 2 mg PO DAILY Qty: 30 0RF Continued pyridoxine (vitamin B6) 100 mg tablet 100 mg PO DAILY 90 Days Qty: 90 3RF Combivent Respimat 20-100 mcg/actuation mist 1 puff PO Q6H Qty: 4 3RF Advair HFA 115-21 mcg/actuation HFA aerosol inhaler 2 puff inhalation Q12H 30 Days Qty: 12 5RF Rx Instructions: administer with spacer losartan 50 mg tablet 50 mg PO DAILY oxcarbazepine 150 mg tablet 150 mg PO DAILY calcium carbonate-vitamin D3 600 mg-5 mcg (200 unit) tablet 1 tab PO BID meloxicam 7.5 mg tablet 7.5 mg PO DAILY famotidine 20 mg tablet 20 mg PO BID trazodone 100 mg tablet 100 mg PO BEDTIME PRN (Reason: insomnia) baclofen 10 mg tablet 10 mg PO TID PRN (Reason: muscle spasm) furosemide 20 mg tablet 20 mg PO DAILY albuterol sulfate [Ventolin HFA] 90 mcg/actuation HFA aerosol inhaler 2 puff INHALATION Q4H PRN (Reason: wheezing) ezetimibe 10 mg tablet 10 mg PO DAILY icosapent ethyl 1 gram capsule 2 g PO BID Mounjaro 15 mg/0.5 mL pen injector 15 mg subcut TH@0900 albuterol sulfate 1.25 mg/3 mL solution for nebulization 1.25 mg inhalation Q4H PRN (Reason: dyspnea) acetaminophen 650 mg tablet extended release 650 mg PO Q8H PRN (Reason: Mild Pain (Scale Score 1-4)) albuterol sulfate 2.5 mg /3 mL (0.083 %) solution for nebulization 2.5 mg inhalation Q4H PRN (Reason: shortness of breath or wheezing) cetirizine [Zyrtec] 10 mg tablet 10 mg PO DAILY montelukast [Singulair] 10 mg tablet 10 mg PO BEDTIME gabapentin 600 mg tablet 600 mg PO TID PRN (Reason: Pain) metoprolol succinate 25 mg tablet extended release 24 hr 25 mg PO BEDTIME (DME) pen needle, diabetic [Pentips Pen Needle] 32 gauge x 5/32 needle See Rx Instructions .ROUTE DAILY Qty: 50 Rx Instructions: As directed paroxetine HCl 40 mg tablet 40 mg PO BEDTIME Lantus Solostar U-100 Insulin 100 unit/mL (3 mL) insulin pen 32 unit subcut DAILY lidocaine 5 % adhesive patch,medicated 1 patch topical DAILY Rx Instructions: leave on most painful area for up to 12 hrs oxcarbazepine 300 mg tablet 450 mg PO BEDTIME clonidine HCl 0.1 mg tablet 0.1 mg PO BEDTIME metformin 500 mg tablet extended release 24 hr 500 mg PO BEDTIME aspirin 81 mg tablet,chewable 1 tab PO BEDTIME atorvastatin 80 mg tablet 80 mg PO BEDTIME Discontinued oxycodone 10 mg tablet 10 mg PO Q12H PRN (Reason: Severe Pain (Scale Score 7-10)) Discharge Orders: Discharge Order (Routine); Ordered 06/20/24 Ordered By: Ghulam Galvez Diet: Advance to usual diet Activity on Discharge: As tolerated Stand Alone Forms: Patient Portal Discharge page Print Language: Romansh Care Plan Goals: You has been given Decadron 2 mg. Take daily. You have begin given 30 oxycodone 10 mg tabs the can take with your home dosing to make it a 3 times a day dose resume all other medications as prior to hospital Health Concerns: Dr. Villaseñor's office will call you with follow up appointment Plan of Treatment: Continue all therapies with the addition of Decadron until Dr. Villaseñor tells you differently. Follow up with the PCP next available Assessment: See discharge summary
--- NOTE | 2024-06-20 13:12 | MHC.CM.PN ---
Patient has been medically cleared for dc to home today, self care.
--- NOTE | 2024-06-23 07:27 | P.CDIM_ITS ---
PROVIDER RESPONSE TEXT: To clarify, the appropriate diagnosis supported by the clinical indicators: Overweight QUERY TEXT: PHYSICIAN'S DOCUMENTATION REQUEST Date of Query: 06/20/2024 12:55 PM EDT Patient Name: Sarita Puga Admit Date: 06/18/2024 Dear Ghulam Galvez DO, A review of the medical record indicates additional documentation may be needed. Please review below and update the documentation accordingly. Clinical Indicators: Height: ( ) 5'3 Weight: ( ) 104.4 kg BMI: ( ) 40.8 Other Clinical Notes Supporting Significance of the BMI: per Nutritional Risk Assessment 06/19/24: on therapeutic diet If possible, please provide an associated diagnosis related to the abnormal BMI, such as: Overweight Obesity Due to excess calories Obesity Drug induced Obesity Due to other cause Specify the other cause Severe or Morbid Obesity With alveolar hypoventilation Severe or Morbid Obesity Without alveolar hypoventilation BMI is not significant Other (explain) Clinically unable to determine (explain) Thank you, Daya Alejandre RN Use of terms such as suspected, likely, concern for, or probable (associated with a specific diagnosi s that is being evaluated, monitored, or treated as if it exists) are acceptable and can be coded in the inpatient se tting, when documented at the time of discharge. Please use your independent medical judgment in providing your response. THIS QUERY IS PART OF THE PERMANENT MEDICAL RECORD
== END 2024-06-20 14:05 | disposition home or self-care (01) | DRG 44 ==
LOC: HO.ED 14:21 → HO.EDOVER 14:33 → HO.IMC 19:26
PROVIDERS: Student in an Organized Health Care Education/Training Program; Admitting Provider Student in an Organized Health Care Education/Training Program; Emergency Provider Emergency Medicine; PCP Internal Medicine Geriatric Medicine; Visit Provider Hospitalist
DX: I61.4 Nontraumatic intracerebral hemorrhage in cerebellum (principal); C71.6 Malignant neoplasm of cerebellum; F17.210 Nicotine dependence, cigarettes, uncomplicated; I10 Essential (primary) hypertension; J44.9 Chronic obstructive pulmonary disease, unspecified; R63.6 Underweight; Z68.41 Body mass index [BMI] 40.0-44.9, adult; Z71.3 Dietary counseling and surveillance; E11.9 Type 2 diabetes mellitus without complications; I25.10 Atherosclerotic heart disease of native coronary artery without angina pectoris; Z71.6 Tobacco abuse counseling; Z79.4 Long term (current) use of insulin; Z79.51 Long term (current) use of inhaled steroids; Z79.85 Long-term (current) use of injectable non-insulin antidiabetic drugs; Z79.899 Other long term (current) drug therapy
CPT/HCPCS: 36415; 70450; 70496; 70498; 70553; 80048; 80061; 82947; 84484; 85025; 85610; 85730; 93005; 97116; 97161; 97166; 97530; 97535; 99285; A9585; J1100; J1171; J1200; J2270; J2405; J3360; J7120; Q9967

== ENCOUNTER → 2024-06-18 13:04 | Outpatient (BNV) | payer MEDICAID, SELFPAY | PROVIDERS: Admitting Provider Student in an Organized Health Care Education/Training Program; Emergency Provider Emergency Medicine; PCP Internal Medicine Geriatric Medicine; Visit Provider Internal Medicine Cardiovascular Disease | DX: I63.9 Cerebral infarction, unspecified (principal) | CPT/HCPCS: 93010 ==

== ENCOUNTER → 2024-06-18 13:04 | Outpatient (BNV) | payer MEDICAID, SELFPAY | PROVIDERS: Emergency Provider Emergency Medicine; PCP Internal Medicine Geriatric Medicine; Visit Provider Radiology Diagnostic Radiology | DX: G93.89 Other specified disorders of brain (principal); I65.22 Occlusion and stenosis of left carotid artery; G93.6 Cerebral edema | CPT/HCPCS: 70450; 70496; 70498; 70553 ==

== ENCOUNTER → 2024-06-18 14:01 | Outpatient (BNV) | payer MEDICAID, SELFPAY | PROVIDERS: Admitting Provider Student in an Organized Health Care Education/Training Program; Emergency Provider Emergency Medicine; PCP Internal Medicine Geriatric Medicine; Visit Provider Hospitalist | DX: I63.9 Cerebral infarction, unspecified (principal); E11.9 Type 2 diabetes mellitus without complications; Z79.4 Long term (current) use of insulin; I25.10 Atherosclerotic heart disease of native coronary artery without angina pectoris | CPT/HCPCS: 99223 ==

== ENCOUNTER → 2024-06-18 14:01 | Outpatient (BNV) | payer MEDICAID, SELFPAY | PROVIDERS: Admitting Provider Student in an Organized Health Care Education/Training Program; Emergency Provider Emergency Medicine; PCP Internal Medicine Geriatric Medicine; Visit Provider Psychiatry & Neurology Neurology | DX: G93.9 Disorder of brain, unspecified (principal) | CPT/HCPCS: 99222 ==

== ENCOUNTER 2024-06-28 14:06 | Outpatient (REF) | payer MEDICAID, SELFPAY ==
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
--- OUTSIDE RECORDS SUMMARY | 2024-06-28 14:59 | XMS_ITS | Encounter Summary ---
Author Organization [employer] Address [address] [place] [address] Care Team Providers Care Spine Specialist Name Role Phone Name, Kiel BAILEY Primary Care Provider [phone] Katlyn Rodriguez PharmD Unavailable [phone] Reason for Visit * Reason Comments Med Refill Encounter Details Date Type Department Care Team ([facility] Contact Info) Description 04/15/2023 Refill [facility] MEDICINE [address] [place] [address] Yaneth Restrepo FNP [address] [place] [address] Diabetes mellitus type 2 in obese (CMS/HCC) [...] 07/12/2024 9:30 AM EDT Medication Management [address] [address] Puia, Katlyn, PharmD [address] [place] [id number] 07/27/2024 10:00 AM EDT Office Visit [address] [address] Name, MD Kiel [address] [place] [id number] 08/20/2024 9:30 AM EDT Clinical Support [address] [address] Opal Steiner RN documented as of this encounter Goals Goal Patient Goal Type Associated Problems Recent Progress Patient-Stated? Author Record your blood pressure once per day Blood Pressure No Puia, Katlyn, PharmD Blood Pressure < 140/90 Blood Pressure 81/56( 025 9:57 AM EDT) No Puia, Katlyn, PharmD Hemoglobin A1c < 7 Result Component 6.7( 9:59 AM EDT) No Puia, Katlyn, PharmD Record your blood [...] documented as of this encounter Care Teams Spine Specialist Relationship Specialty Start Date End Date Name, MD Kiel [address] [place] [address] PCP - General Family Medicine 07/15/15 Katlyn Rodriguez PharmD [address] [place] [address] Pharmacist Internal Medicine 10/08/22 Marta Ovalle Customer Retention RepresentativeFarm Management Professor 05/25/23 documented as of this encounter
--- OUTSIDE RECORDS SUMMARY | 2024-06-28 14:59 | XMS_ITS | Encounter Summary ---
Author Organization [employer] Address [address] [place] [address] [address] [place] [address] Care Team Providers Care Game Design Instructor Name Role Phone Name, Kiel BAILEY Primary Care Provider [phone] Katlyn Rodriguez PharmD Unavailable [phone] Encounter Details Date Type Department Care Team ([facility] Contact Info) Description 02/23/2022 Orders Only [facility] [address] [place] [address] Name, MD Kiel [address] [place] [address] Social History Tobacco Use Types Packs/Day Years [...] Upcoming Encounters Date Type Department Care Team ([facility] Contact Info) Description 07/12/2024 9:30 AM EDT Medication Management [facility] MEDICINE [address] [place], [place] [id number] PuiaReidKatlyn, PharmD [address] [place] [address] 07/27/2024 10:00 AM EDT Office Visit [address] [address] Name, [place] [address] 08/20/2024 9:30 AM EDT Clinical Support [address] [address] Opal Steiner, MARINA documented as of this encounter Visit Diagnoses Not on filedocumented in this encounter Care Teams Game Design Instructor Relationship Specialty Start Date End Date Name, MD Kiel [address] [place] [id number] PCP - General Family Medicine 07/15/15 Katlyn Rodriguez PharmD [address] [place] [phone] Pharmacist Internal Medicine 10/08/22 Marta Ovalle Call Center RnBog Cutter 05/25/23 documented as of this encounter
--- OUTSIDE RECORDS SUMMARY | 2024-06-28 14:59 | XMS_ITS | Clinical Summary ---
Author Organization [address] [facility] Address [address] [place] [address] Phone Care Team Providers Care Sound Technician Name Role Phone Name, Kiel BAILEY Primary Care Provider [phone] Allergies Active Allergy Reactions Criticality Noted Date [...] Problem Noted Date Diagnosed Date COPD exacerbation ([facility] V24, [facility] V28) Abnormal nuclear stress test 11/06/2014 Rib fracture 12/24/2013 Overview (12/12/2023): Non displaced, probable froacture on the right ninth and tenth Abdominal pain 08/15/2013 Lipoma of abdominal wall 11/02/2011 Visual field defect 03/29/2011 Cocaine abuse, episodic use ([facility] V24, [facility] V28) 06/17/2010 Low back pain radiating to left leg 10/08/2009 Overview (12/12/2023): The patient follows with [facility] and is treated with injections to the LS. Asthmatic bronchitis , chronic ([facility] V24, [facility] V28) 07/07/2009 Overview (12/12/2023): Severe and worse in the spring. Last hospitalazion in May and 3 ER visits Hospital 08/02 Known medical problems 06/05/2009 Tobacco use disorder 06/05/2009 Hypertriglyceridemia 06/05/2009 Morbid obesity ([facility] V24, [facility] V28) 2009 Overview (12/12/2023): BMI 48.37 on [...] TOTAL HYSTERECTOMY WITH BSO; COMMENT: for bleeding, [facility] Medical History Medical History Date Comments Type II or unspecified type diabetes mellitus with unspecified complication, not stated as uncontrolled DX:Type II or unspecified t ype diabetes mellitus with unspecified complication, not stated as uncontrolled Unspecified essential hypertension DX:Unspecified essential hypertension Tobacco abuse DX:Tobacco abuse RAD (reactive airway disease) DX :RAD (reactive airway disease) Morbid obesity ([facility] V24, [facility] V28) DX:Morbid obesity (HCC) Asthmatic bronchitis , chron ic ([facility] V24, [facility] V28) 07/07/2009 DX:Asthmatic bronchitis , ch ronic ([facility]) Hypertriglyceridemia 06/05/2009 DX:Hypertri glyceridemia Rib fracture 12/24/2013 DX:Rib fracture Family History Medical History Relation Name Comments Blindness Brother 1 Breast cancer Maternal Grandmother Cataracts Maternal Grandmother Blindness Mother Glaucoma Neg Hx Macular degeneration Neg Hx Strabismus Neg Hx Relation Name Status Comments Brother 1 Brother 2 MS Brother 3 Alive 6 brothers are diabetic [...] AM EDT Office Visit [facility] [address] [phone] Wesley Garcia, DPM [address] [address] Health Maintenance Due Date Last Done Comments [...] 2023 12/15/2021, 03/13/2021, 08/18/2020, Additional history exists Depression Screening 09/01/2024 09/02/2023 Diabetes: Blood Sugar Control Test (HGBA1C) 09/24/2024 03/27/2024, 02/01/2024, 11/20/2014 Diabetes: Annual GFR (Glomerular Filtration Rate) 02/05/2025 02/06/2024, 02/05/2024, 11/20/2014 Hypertension/CHF/CAD Annual BMP Blood Test 02/05/2025 02/06/2024, 02/05/2024, 11/20/2014 Cholesterol Screening (Lipid Panel) 10/24/2028 10/25/2023, 05/10/2014 DTaP,Tdap,and Td Vaccines (5 - Td or Tdap) 03/30/2034 03/30/2024, 11/13/2021, 10/22/2021, Additional history exists Hepatitis C Screening Completed 10/10/2013 Zoster Vaccines [...] mmol/L LAB CHEMISTRY METHOD 02/06/2024 3:36 AM [facility] Potassium 4.1 3.5 - 5.5 mmol/L LAB CHEMISTRY METHOD 02/06/2024 3:36 AM [facility] Chloride 104 96 - 110 mmol/L LAB CHEMISTRY METHOD 02/06/2024 3:36 AM [facility] CO2 23 21 - 32 mmol/L LAB CHEMISTRY METHOD 02/06/2024 3:36 AM [facility] Anion Gap 9 3 - 11 LAB CHEMISTRY METHOD 02/06/2024 3:36 AM [facility] Glucose 244(H) 70 - 100 mg/dL LAB CHEMISTRY METHOD 02/06/2024 3:36 AM [facility] BUN 17 5 - 25 mg/dL LAB CHEMISTRY METHOD 02/06/2024 3:36 AM [facility] Creatinine 0.71 0.50 - 1.10 mg/dL LAB CHEMISTRY METHOD 02/06/2024 3:36 AM [facility] eGFR 99 >=60 mL/min/1. 73m2 LAB CHEMISTRY METHOD 02/06/2024 3:36 AM [facility] Comment:Calculation based on the??Chronic Kidney Disease Epidemiology Collaboration (CKD-EPI) equation refit??without adjustment for race. BUN/Creatinine Ratio 23.9 LAB CHEMISTRY METHOD 02/06/2024 3:36 AM [facility] Calcium 9.3 8.5 - 10.5 mg/dL LAB CHEMISTRY METHOD 02/06/2024 3:36 AM [facility] Blood Venous blood specimen / Unknown Venipuncture / Unknown 02/06/2024 2:59 AM EST 02/06/2024 3:13 AM EST us Cindy SEGURA LAB BLOOD ORDERABLES Final R esult [facility] [address] [place] [address], * (ABNORMAL) Hemoglobin A1c (11/20/2014) Pathologist [facility] Hemoglobin A1C 7.5(A) 4.0 - 6.0 % Blood Venous blood specimen / Unknown Historical Provider LAB BLOOD ORDERABLES Alis l Result * Urine Albumin Creatinine Ratio (05/10/2014) Pathologist [facility] Urine Albumin Creatinine Ratio abstracted Historical Provider HEALTH MAINTENANCE Final Result * (ABNORMAL) Lipid panel (05/10/2014) Pathologist [facility] LDL/HDL Ratio 4 0 - 4 Triglycerides 360(A) 0 - 150 mg/dL Cholesterol 179 0 - 200 mg/dL HDL 42 >=40 mg/dL LDL Cholesterol 65 0 - 100 mg/dL Blood Venous blood specimen / Unknown Historical Provider LAB BLOOD ORDERABLES Alis l Result * Hepatitis C Screening (10/10/2013) Hepatitis C Screening abstracted Historical Provider HEALTH MAINTENANCE Final Result from [...] currently active code status orders. Care Teams Sound Technician Relationship Specialty Start Date End Date Name, MD Kiel [address] [place], [place] PCP - General Internal Medicine 08/28/15
--- OUTSIDE RECORDS SUMMARY | 2024-06-28 14:59 | XMS_ITS | Encounter Summary ---
Author Organization [facility] Address [address] [place] [address] Care Team Providers Care Planting Machine Operator Name Role Phone Name, Kiel BAILEY Primary Care Provider [phone] Encounter Details Date Type Department Care Team (Late st Contact Info) Description 11/24/2023 9:53 AM EDT Hospital Encounter TH HISTORIC ENCOUNTERS EASTERN CONVERSION ONLY Geoffrey-Art Vitale MD [address] [place] [address] Social History Tobacco Use Types [...] 2:17 PM Encounter Date: 11/24/2023 Status: Signed Registered Nurse Maternal Child: Art Davis MD (Physician) CHIEF COMPLAINT: Chief Complaint Patient presents with ? Follow-up Diffuse large B-cell lymphoma Stage III Completed 6 cycles of R-CHOP in July 23, 2018 IDENTIFIER:Sarita Puga is a 58 y.o. female. HPI: The patient returns for follow up of Large B-cell lymphoma. Here with her daughter , who is romanian to east timorese medical language specialist Patient reports that she has been [...] accompanied by her daughter and girlfriend. As Nigerien to Hebrew medical language specialist assisted with the discussion. She had [...] AM EDT Office Visit [facility] - [facility] [address] [phone] Wesley Garcia DPM [address] [address] documented as of this encounter Procedures Procedure [...] documented as of this encounter Care Teams Planting Machine Operator Relationship Specialty Start Date End Date Name, MD Kiel [address] [place], [place] PCP - General Internal Medicine 08/28/15 documented as of this encounter
--- OUTSIDE RECORDS SUMMARY | 2024-06-28 14:59 | XMS_ITS | Encounter Summary ---
Author Organization [employer] Address [address] [facility] 7t [place] [address] Care Team Providers Care Grappler Name Role Phone Name, Kiel BAILEY Primary Care Provider [phone] Katlyn Rodriguez PharmD Unavailable [phone] Reason for Visit * Reason Onset Date Comments Medication Problem 08/30/2023 Encounter Details Date Type Department Care Team ([facility] st Contact Info) Description 08/30/2023 Telephone [facility] MEDICINE [address] [place] [address] Name, MD Kiel [address] [place] [address] Medication Problem Social History Tobacco Use Types [...] Description 07/12/2024 9:30 AM EDT Medication Management [address] [address] Katlyn Rodriguez PharmD [address] [place] [address] 07/27/2024 10:00 AM EDT Office Visit [address] [address] Name, MD Kiel [address] [place] [address] 08/20/2024 9:30 AM EDT Clinical Support [address] [address] Opal Steiner, MARINA documented as of this encounter Goals Goal Patient Goal Type Associated Problems Recent Progress Patient-Stated? Author Record your blood pressure once per day Blood Pressure No Katlyn Rodriguez, PharmD Blood Pressure < 140/90 Blood Pressure 81/56( 025 9:57 AM EDT) No Puia, Katlyn, PharmD Hemoglobin A1c < 7 Result Component 6.7( 5 9:59 AM EDT) No Puia, Katlyn, PharmD Record your blood sugar as directed Result Component No Puia, Katlyn, PharmD documented as of this encounter Visit Diagnoses Not on filedocumented in this encounter Additional Health Concerns Assessment Noted Time PHQ-9 Depression Total Score: 7 07/15/19 23 2:39 PM EDT documented as of this encounter Care Teams Grappler Relationship Specialty Start Date End Date Name, MD Kiel [address] [place] [address] PCP - General Family Medicine 07/15/15 Katlyn Rodriguez, PharmD [address] [place] [address] Pharmacist Internal Medicine 10/08/22 Marta Ovalle Terminal Computer OperatorHeating Element Repairer 05/25/23 documented as of this encounter
--- OUTSIDE RECORDS SUMMARY | 2024-06-28 14:59 | XMS_ITS | Encounter Summary ---
Author Organization [employer] Address [address] [facility] 7t [place] [address] Care Team Providers Care Job Lithographer Name Role Phone Name, Kiel BAILEY Primary Care Provider [phone] Katlyn Rodriguez PharmD Unavailable [phone] Encounter Details Date Type Department Care Team (Late st Contact Info) Description 08/26/2022 Orders Only [facility] MEDICINE [address] [place] [phone] Leia Gonzales LPN Social History Tobacco Use [...] Department Care Team (Late Contact Info) Description 07/12/2024 9:30 AM EDT Medication Management [facility] MEDICINE [address] [place] [phone] [place] [address] 07/27/2024 10:00 AM EDT Office Visit [address] [address] Name, MD Kiel [address] [place] [address] 08/20/2024 9:30 AM EDT Clinical Support [address] [address] Opal Steiner RN documented as of this encounter Visit Diagnoses Not on filedocumented in this encounter Additional Health Concerns Assessment Noted Time PHQ-9 Depression Total Score: 7 07/15/19 23 2:39 PM EDT documented as of this encounter Care Teams Job Lithographer Relationship Specialty Start Date End Date Name, MD Kiel [address] [place] [address] PCP - General Family Medicine 07/15/15 Katlyn Rodriguez, AngieD [address] [place] [address] Pharmacist Internal Medicine 10/08/22 Marta Ovalle Fish Hatchery ManagerMineral Surveyor 05/25/23 documented as of this encounter
--- OUTSIDE RECORDS SUMMARY | 2024-06-28 14:59 | XMS_ITS | Encounter Summary ---
Author Organization [employer] Address [address] [facility] [address] 7[address] [place] [address] Care Team Providers Care Soa Integration Architect Name Role Phone Name, Kiel BAILEY Primary Care Provider Katlyn Rodriguez PharmD Unavailable [phone] Encounter Details Date Type Department Care Team ([facility] st Contact Info) Description 02/20/2024 Telephone [facility] [address] [place], [place] [phone] Name, MD Kiel [address] [place] [address] Social History Tobacco Use Types Packs/Day Years [...] Description 07/12/2024 9:30 AM EDT Medication Management [address] [address] PuiaReidKatlyn, PharmD [address] [place] [address] 07/27/2024 10:00 AM EDT Office Visit [address] [address] Name, MD Kiel [address] [place] [address] 08/20/2024 9:30 AM EDT Clinical Support [address] [address] Opal Steiner, MARINA documented as of this [...] documented as of this encounter Care Teams Soa Integration Architect Relationship Specialty Start Date End Date Name, MD Kiel [address] [place] [address] PCP - General Family Medicine 07/15/15 Katlyn Rodriguez PharmD [address] [place] [address] Pharmacist Internal Medicine 10/08/22 Marta Ovalle Fixer Boarding RoomEvents And Promotions Assistant 05/25/23 documented as of this encounter
--- OUTSIDE RECORDS SUMMARY | 2024-06-28 14:59 | XMS_ITS | Encounter Summary ---
Author Organization [employer] Address [address] [place] [address] 7t [place] [address] Care Team Providers Care Ict Sales Representative Name Role Phone Name, Kiel BAILEY Primary Care Provider [phone] Katlyn Rodriguez PharmD Unavailable [phone] Reason for Visit * Reason Comments Med Refill Encounter Details Date Type Department Care Team (Late Contact Info) Description 04/25/2022 Refill [facility] MEDICINE [address] [place] [address] Name, MD Kiel [address] [place] [address] Diabetes mellitus type 2 in obese (CMS/HCC) [...] Description 07/12/2024 9:30 AM EDT Medication Management [address] [address] [place] [address] 07/27/2024 10:00 AM EDT Office Visit [address] [address] Name, [place] [address] 08/20/2024 9:30 AM EDT Clinical Support [address] [address] Opal Steiner RN documented as of this encounter Visit Diagnoses Diagnosis Diabetes mellitus type 2 in obese- Primary Type II or unspecified type diabetes mellitus without mention of complication, not stated as uncontrolled documented in this encounter Care Teams Ict Sales Representative Relationship Specialty Start Date End Date Name, MD Kiel [address] [place] [address] PCP - General Family Medicine 07/15/15 Katlyn Rodriguez PharmD [address] [place] [address] Pharmacist Internal Medicine 10/08/22 Marta Ovalle Building Performance ConsultantSsrs Developer 05/25/23 documented as of this encounter
--- OUTSIDE RECORDS SUMMARY | 2024-06-28 14:59 | XMS_ITS | Clinical Summary ---
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 ?? No intra-axial or extra-axial hemorrhage is demonstrated. ?? The right cerebral peduncle is larger than the left and demonstrates ?? abnormal signal which is hypointense on precontrast T1 weighted images, ?? hyperintense on T2 weighted and FLAIR sequences with some restricted ?? diffusion. Postcontrast administration there is abnormal enhancement ?? measuring 2 cm x 1 cm x 1.5 cm with adjacent mild edema. Differential ?? considerations include subacute infarct versus neoplasm. ? Otherwise brain parenchyma is normal in signal intensity. The midline ?? structures are grossly normal. ?? Flow voids are maintained within the major vessels of the base of the ?? brain. ? The orbits are normal. ?? Mild mucosal thickening in left maxillary sinus. ?? No focal bone lesion. ? IMPRESSION: ?? 1. Right cerebral peduncle is enlarged/swollen with abnormal signal with ?? some restricted diffusion and masslike enhancement measuring 2 cm x 1 cm x ?? 1.5 cm with mild surrounding nonenhancing edema. Differential ?? considerations include subacute infarct versus neoplasm which could be ?? malignant. A short term follow-up brain MRI should be considered to ?? evaluate for possible evolution of subacute ischemia and differentiate ?? between ischemia in neoplasm. Neurosurgical consultation is recommended. ? This document has been electronically signed by: Jennifer Madison MD on ?? 06/18/2024 20:47:14 ? Dictated By: ?Jennifer Madison MD ? Signed By: ?<Electronically signed by Jennifer Madison MD in OV> ? 06/18/242047 ? DD/ 46 ? TD/TT: 06/18/242046 ? Billing Clerk: ? Procedure Note Donotuseinterpreter, Image - 06/18/2024 [place] [address] Magnetic Resonance Report Signed with Arthur Patient: Sarita Puga MMR#: [id number] 92 : 1965Acct:[id number] Age/Sex: 58 / FADM Date: 06/18/24 Loc: .[facility] 446-[address]: Ghulam Galvez DO Ordering Physician: Maggie Pfeiffer Date of Service: 06/18/24 Procedure(s): MR head/brain wo/w con Accession Number(s): [id number] cc: Maggie Pfeiffer; Name,Kiel BAILEY ADDENDUM This document has been electronically signed by: Jennifer Madison MD on 06/18/2024 20:47:14 ADDENDUM: This report was discussed with Kati Curiel RN on Jun 18, 2024 21:28:00 EDT. This document has been electronically signed by: Karen Sparks on 06/18/2024 21:29:16 Addendum Dictated By: Jennifer Madison MD Addendum Signed By: <Electronically signed by MD David in OV> 06/18/242129 Addendum Cosigned By: DD/ TD/TT: 06/18/24 CLINICAL HISTORY: ?subacute hemorrhagic CVA --- Additional Notes orSpecial Instructions: Allergic to barium sulfateSevere claustrophobic pt. Multiple reminders given, triedscanning Blades as possible, unable to repeat. Best exam obtained MR Brain with and without gadolinium Comparison: CT/NM/SR - CT HEAD FOR STROKE - 06/18/24 12:57 EDT Findings: The ventricles and subarachnoid spaces are normal in size and the ventricles are normal in position with no midline shift or herniation. No intra-axial or extra-axial hemorrhage is demonstrated. The right cerebral peduncle is larger than the left and demonstrates abnormal signal which is hypointense on precontrast T1 weighted images, hyperintense on T2 weighted and FLAIR sequences with some restricted diffusion. Postcontrast administration there is abnormal enhancement measuring 2 cm x 1 cm x 1.5 cm with adjacent mild edema. Differential considerations include subacute infarct versus neoplasm. Otherwise brain parenchyma is normal in signal intensity. The midline structures are grossly normal. Flow voids are maintained within the major vessels of the base of the brain. The orbits are normal. Mild mucosal thickening in left maxillary sinus. No focal bone lesion. IMPRESSION: 1. Right cerebral peduncle is enlarged/swollen with abnormal signal with some restricted diffusion and masslike enhancement measuring 2 cm x 1 cm x 1.5 cm with mild surrounding nonenhancing edema. Differential considerations include subacute infarct versus neoplasm which could be malignant. A short term follow-up brain MRI should be considered to evaluate for possible evolution of subacute ischemia and differentiate between ischemia in neoplasm. Neurosurgical consultation is recommended. This document has been electronically signed by: Jennifer Madison MD on 06/18/2024 20:47:14 Dictated By: Jennifer Madison MD Signed By: <Electronically signed by Jennifer Madison MD in OV> 06/18/242047 DD/ 46 TD/TT: 06/18/242046 Billing Clerk: [facility] External Provider IMG MRI PROCEDURES Edited Result - Final * CTA Head Stroke w/ and w/o Contrast (06/18/2024 1:04 PM EDT) Anatomical Region Laterality Modality Computed Tomogra phy 06/18/2024 1:04 PM EDT Narrative 06/18/2024 1:49 PM EDT ? [facility] ?[address] ?[place] [address] ? CT Scan Report ? Signed ? Patient: Puga,Shilpi ?MR#: [id number] ?? 92 ? : 1965 ?Acct:[id number] ? Age/Sex: 58 / F ?ADM Date: 06/18/24 ? Loc: HO.ED ? Attending Dr: ? Ordering Physician: Lacy Saucedo MD ?? Date of Service: 06/18/24 ?? Procedure(s): CT angio head neck STROKE ?? Accession Number(s): [id number] ? cc: Lacy Saucedo MD; Name,Kiel BAILEY ? Report Number: ?? [id number]: Total DLP = ??673.00 mGy-cm ?? EXAMINATION: [...] ?? Superior cerebellar arteries are patent. ? analysis consultant: ?? Normal patency. No focal stenosis. No [...] test result is communicated to: Emergency physician . ?? Lacy Saucedo at 1:30 PM on June 10, 2024. ? Electronically signed by: ??Felix Fall MD ??06/18/2024 01:46 PM ?? EDT RP ? Dictated By: ?Felix Mckinonn MD ? Signed By: ?<Electronically signed by Felix Tilley MD in OV> ? 06/18/24 1346 ? DD/ 1304 ? TD/TT: 06/18/24 1319 ? Billing Clerk: ? Procedure Note Donotuseinterpreter, Image - 06/18/[address] [address] [address] Scan Report Signed Patient: Sarita Puga MMR#: [id number] 92 : 1965Acct:[id number] Age/Sex: 58 / FADM Date: 06/18/24 Loc: HO.ED Attending Dr: Ordering Physician: Lacy Saucedo MD Date of Service: 06/18/24 Procedure(s): CT angio head neck STROKE Accession Number(s): [id number] cc: Lacy Saucedo MD; Name,Kiel BAILEY Report Number: [id number]: Total DLP = 673.00 mGy-cm EXAMINATION: CTA [...] intimal flap. Superior cerebellar arteries are patent. analysis consultant: Normal patency. No focal stenosis. No abrupt [...] Felix Fall MD 06/18/2024 01:46 PM EDT Dictated By: Felix Mckinnon MD Signed By: <Electronically signed by Felix Tilley MDin OV> 06/18/24 1346 DD/ 1304 TD/TT: 06/18/24 1319 Billing Clerk: [facility] External Provider IMG CT PROCEDURES Final Result * CT Head Stroke w/o Contrast (06/18/2024 12:57 PM EDT) Anatomical Region Laterality Modality Computed Tomogra phy 06/18/2024 12:5 7 PM EDT Narrative 06/18/2024 1:38 PM EDT ? [facility] ?[address] ?[place] [address] ? CT Scan Report ? Signed ? Patient: Puga,Shilpi ?MR#: [id number] ?? 92 ? : 1965 ?Acct:[id number] ? Age/Sex: 58 / F ?ADM Date: 06/18/24 ? Loc: HO.ED ? Attending Dr: ? Ordering Physician: Lacy Saucedo MD ?? Date of Service: 06/18/24 ?? Procedure(s): CT head for STROKE ?? Accession Number(s): [id number] ? cc: Lacy Saucedo MD; Name,Kiel BAILEY ? Report Number: ?? [id number]: Total DLP = ??634.00 mGy-cm ?? EXAMINATION: [...] DD/ 1257 ? TD/TT: 06/18/24 1302 ? Billing Clerk: ? Procedure Note Sarmad, Jung - 06/18/[address] [place] [address] [address] Scan Report Signed Patient: Sarita Puga MMR#: [id number] 92 : 1965Acct:[id number] Age/Sex: 58 / FADM Date: 06/18/24 Loc: HO.ED Attending Dr: Ordering Physician: Lacy Saucedo MD Date of Service: 06/18/24 Procedure(s): CT head for STROKE Accession Number(s): [id number] cc: Lacy Saucedo MD; Name,Kiel BAILEY Report Number: [id number]: Total DLP = 634.00 mGy-cm EXAMINATION: CT [...] 06/18/24 1335 DD/ 1257 TD/TT: 06/18/24 1302 Billing Clerk: [facility] External Provider IMG CT PROCEDURES Final Result * (ABNORMAL) Lipid Panel with Reflex to Direct LDL (06/18/2024 8:18 AM EDT) Triglycerides 156(H) <150 mg/dL [facility] Comment:Desirable Triglyceri de: less than 150 mg/dLBorderline High Triglyceride 150-199 mg/dLHigh Triglyceride: 200-499 mg/dLVery High Triglyceride: greater than or equal to 5OO mg/dL Cholesterol 185 <200 mg/dL [facility] Comment:Desirable Cholestero l: less than 200 mg/dLBorderline High Cholesterol: 200-239 mg/dLHigh Cholesterol: greater than 239 mg/dL LDL Cholesterol Calculated 109(H) <100 mg/dL [facility] Comment:Desirable LDL: less than 100 mg/dLNear Optimal/Above Optimal LDL: 110- 129 mg/dLBorderline High LDL: 130-159 mg/dLHigh LDL: 160-189 mg/dLVery High LDL: greater than or equal to 190 mg/dL HDL Cholesterol 45 >40 mg/dL [facility] Comment:Desirable HDL: great er than 40 mg/dL Note: This HDL assay may give artificially low results in patients with liver disease. 06/18/2024 8:18 AM EDT 06/18/2024 11:00 AM EDT us Kiel Shaffer MD LAB BLOOD ORDERABLES Final Resul t Performing Organization Address [facility] de Phone Number [facility] [address] [place] [phone] * Hepatic Function Panel (06/18/2024 8:18 AM EDT) Bilirubin, Total 0.3 0.0 - 1.0 mg/dL [facility] Bilirubin, Direct 0.1 0.0 - 0.5 mg/dL [facility] Aspartate Amino Transferase 22 5 - 31 U/L [facility] Alanine Aminotransferase 31 0 - 31 U/L [facility] Total Protein 6.5 6.5 - 8.0 g/dL [facility] Albumin Level 4.0 3.5 - 5.0 g/dL [facility] Alkaline Phosphatase 72 39 - 117 U/L [facility] 06/18/2024 8:18 AM EDT 06/18/2024 11:00 AM EDT us Kiel Shaffer MD LAB BLOOD ORDERABLES Final Resul t Performing Organization Address [facility] de Phone Number [facility] [address] [place] [phone] * Culture, Urine, Routine (06/15/2024 1:51 PM EDT) Urine Urine specimen obtained by clean catch procedure / Unknown 06/15/2024 1:51 PM EDT 06/15/2024 4:02 PM EDT Comment:UACC Narrative [facility] - 06/17/2024 10:56 AM EDT Urine Culture Report Result Urine Culture 50,000 to 100,000 cfu/ml Urine Culture Mixed bacterial princess characteristic of Urine Culture urogenital contamination. Specimen Source: Urine clean catch us Victorino Graves MD LAB MICROBIOLOGY - GENERAL ORDER JONY Final Result [facility] [address] [place] [phone] * Referral to Physiatry (06/15/2024) us Victorino Graves MD OUTPATIENT REFERRAL ORDERABLES F inal Result * XR Ribs 3 Views Left w/ Chest (04/27/2024 2:28 PM EST) Anatomical Region Laterality Modality Radiographic Diana ging 04/27/2024 2:28 PM EST Narrative 04/27/2024 3:57 PM EST ?[facility] ?[address] ?[place] [address] ?XRay Report ? Signed ? Patient: Sarita Puga ?MR#: [id number] ?? 92 ? : 1965 ?Acct:[id number] ? Age/Sex: 58 / F ?ADM Date: 04/27/24 ? Loc: HO.HHCX ? Attending Dr: Sarita Gonzalez MD ? Ordering Physician: Sarita Baker MD ?? Date of Service: 04/27/24 ?? Procedure(s): XR ribs LT min 3V w CXR1V ?? Accession Number(s): [id number] ? cc: Sarita Baker MD ? EXAMINATION: [...] DD/ 1428 ? TD/TT: 04/27/24 1450 ? Billing Clerk: MSM ? Procedure Note Timasandraramakrishnaemily, Image - 04/27/[address] [address] XRay Report Signed Patient: Sarita Puga MMR#: [id number] 92 : 1965Acct:[id number] Age/Sex: 58 / FADM Date: 04/27/24 Loc: HO.HHCX Attending Dr: Sarita Gonzalez MD Ordering Physician: Sarita Baker MD Date of Service: 04/27/24 Procedure(s): XR ribs LT min 3V w CXR1V Accession Number(s): [id number] cc: Sarita Baker MD EXAMINATION: XR RIBS, [...] signed by Garry Pollock MD in OV> 03/07/25 1554 DD/ 1428 TD/TT: 04/27/24 1450 Billing Clerk: DEBBI us Sarita Gonzalez MD IMG XR PROCEDURES Fin al Result * US DOPPLER EXT UPPER VENOUS LEFT (04/18/2024 3:59 PM EST) Anatomical Region Laterality Modality Body Ultrasound 04/18/2024 3:59 PM EST Narrative 04/18/2024 4:00 PM EST ? [facility] ?[address] ?[place] [address] ? Ultrasound Report ? Signed ? Patient: EddSarita Jeronimo ?MR#: [id number] ?? 92 ? : 1965 ?Acct:[id number] ? Age/Sex: 58 / F ?ADM Date: 04/18/24 ? Loc: HO.US ? Attending Dr: Victorino Graves MD ? Ordering Physician: VICTORINO GRAVES MD ?? Date of Service: 04/18/24 ?? Procedure(s): US venous duplex UE LT ?? Accession Number(s): [id number] ? cc: VICTORINO GRAVES MD; Kiel Shaffer [...] DD/ 1559 ? TD/TT: 04/18/24 1559 ? Billing Clerk: ? Procedure Note Jung Bañuelos - 04/18/[address] [address] Ultrasound Report Signed Patient: Sarita Puga [facility]#: [id number] 92 : 1965Acct:[id number] Age/Sex: 58 / FADM Date: 04/18/24 Loc: HO.US Attending Dr: Victorino Graves MD Ordering Physician: VICTORINO GRAVES MD Date of Service: 04/18/24 Procedure(s): US venous duplex UE LT Accession Number(s): [id number] cc: VICTORINO GRAVES MD; Name,Kiel BAILEY CLINICAL [...] 04/18/24 1600 DD/ 1559 TD/TT: 04/18/24 1559 Billing Clerk: Victorino Graves MD IMG US PROCEDURES Final Result * POCT KEELEY-14 Urine Drug Screen (04/10/2024 9:12 AM EST) TCA, Urine Positive Oxycodone Screen, Urine Positive Urine Urine specimen obtained by clean catch procedure / Unknown 04/10/2024 9:12 AM EST Opal George RN - 04/10/2024 9:12 AM EST UTOX cup Lot#[id number] Exp. 10/10/25 Internal Pass Control us Kiel Shaffer MD POINT OF CARE TEST ENTER/EDIT OR DERABLES Final Result * CT Head w/o Contrast (04/06/2024 7:14 PM EST) Anatomical Region Laterality Modality Head, Neck Computed Tomogra phy 04/06/2024 7:14 PM EST Narrative 04/06/2024 7:16 PM EST ? [facility] ?[address] ?[place] [address] ? CT Scan Report ? Signed ? Patient: Puga,Shilpi ?MR#: [id number] ?? 92 ? : 1965 ?Acct:[id number] ? Age/Sex: 58 / F ?ADM Date: 04/06/24 ? Loc: HO.ED ? Attending Dr: ? Ordering Physician: Page Garcia DO ?? Date of Service: 04/06/24 ?? Procedure(s): CT head/brain wo IV con ?? Accession Number(s): [id number] ? cc: Page Garcia DO; Name,Kiel BAILEY ? Report Number: ?? [id number]: Total DLP = 1319.00 mGy-cm ? CLINICAL [...] ? DD/ 13 ? TD/TT: 04/06/241913 ? Billing Clerk: ? Procedure Note Jung Bañuelos - 04/06/[address] [address] CT Scan Report Signed Patient: Sarita Puga [facility]#: [id number] 92 : 1965Acct:[id number] Age/Sex: 58 / FADM Date: 04/06/24 Loc: HO.ED Attending Dr: Ordering Physician: Page Garcia DO Date of Service: 04/06/24 Procedure(s): CT head/brain wo IV con Accession Number(s): [id number] cc: Page Garcia DO; Name,Kiel BAILEY Report Number: [id number]: Total DLP = 1319.00 mGy-cm CLINICAL HISTORY: [...] in OV> 04/06/241915 DD/ 13 TD/TT: 04/06/241913 Billing Clerk: [facility] External Provider IMG CT PROCEDURES Edited Result - Final * CT Chest w/ Contrast (04/06/2024 7:12 PM EST) Anatomical Region Laterality Modality Body, Chest Computed Tomogra phy 04/06/2024 7:12 PM EST Narrative 04/06/2024 7:13 PM EST ? [facility] ?[address] ?[place] [address] ? CT Scan Report ? Signed ? Patient: Puga,Shilpi ?MR#: [id number] ?? 92 ? : 1965 ?Acct:[id number] ? Age/Sex: 58 / F ?ADM Date: 04/06/25 ? Loc: HO.ED ? Attending Dr: ? Ordering Physician: Page Garcia DO ?? Date of Service: 04/06/24 ?? Procedure(s): CT chest w IV con ?? Accession Number(s): [id number] ? cc: Page Garcia DO; Deena,Kiel BAILEY ? Report Number: ?? [id number]: Total DLP = ?0.00 mGy-cm ? CLINICAL HISTORY: chest wall pain after trauma ? CT chest with contrast ? Comparison: CT/NM/SR - CT CHEST W IV CON - [...] ? DD/ 11 ? TD/TT: 04/06/241911 ? Billing Clerk: ? Procedure Note Donotuseinterpreter, Image - 04/06/[address] [place] [address] [address] Scan Report Signed Patient: Sarita Puga MMR#: [id number] 92 : 1965Acct:[id number] Age/Sex: 58 / FADM Date: 04/06/24 Loc: HO.ED Attending Dr: Ordering Physician: Page Garcia DO Date of Service: 04/06/24 Procedure(s): CT chest w IV con Accession Number(s): [id number] cc: Page Garcia DO; Name,Kiel BAILEY Report Number: [id number]: Total DLP = 0.00 mGy-cm CLINICAL HISTORY: chest wall pain after trauma CT chest with contrast Comparison: CT/NM/SR - CT CHEST W IV CON - [...] in OV> 04/06/241911 DD/ 11 TD/TT: 04/06/241911 Billing Clerk: [facility] External Provider IMG CT PROCEDURES Edited Result - Final * CT Abdomen Pelvis w/ Contrast (04/06/2024 7:11 PM EST) Anatomical Region Laterality Modality Body, Pelvis, Abdomen Computed T omography 04/06/2024 7:11 PM EST Narrative 04/06/2024 7:13 PM EST ? [facility] ?[address] ?[place] [address] ? CT Scan Report ? Signed ? Patient: Sarita Puga ?MR#: [id number] ?? 92 ? : 1965 ?Acct:[id number] ? Age/Sex: 58 / F ?ADM Date: 04/06/24 ? Loc: HO.ED ? Attending Dr: ? Ordering Physician: Page Garcia DO ?? Date of Service: 04/06/24 ?? Procedure(s): CT abdomen pelvis w IV con ?? Accession Number(s): [id number] ? cc: Page Garcia DO; Kiel Shaffer MD ? Report Number: ?? [id number]: Total DLP = 2421.00 mGy-cm ? CLINICAL [...] ? DD/ 10 ? TD/TT: 04/06/241910 ? Billing Clerk: ? Procedure Note Donotuseinterpreter, Image - 04/06/[address] [place] [address] [address] Scan Report Signed Patient: Sarita Puga MMR#: [id number] 92 : 1965Acct:[id number] Age/Sex: 58 / FADM Date: 04/06/24 Loc: HO.ED Attending Dr: Ordering Physician: Page Garcia DO Date of Service: 04/06/24 Procedure(s): CT abdomen pelvis w IV con Accession Number(s): [id number] cc: Page Garcia DO; Name,Kiel BAILEY Report Number: [id number]: Total DLP = 2421.00 mGy-cm CLINICAL HISTORY: [...] MD in OV> 04/06/241911 DD/ 10 TD/TT: 02/14/25 1911 Billing Clerk: us [facility] External Provider IMG CT PROCEDURES Edited Result - Final * CT Cervical Spine w/o Contrast (04/06/2024 7:02 PM EST) Anatomical Region Laterality Modality Spine, C-spine Computed Tomogra phy 04/06/2024 7:02 PM EST Narrative 04/06/2024 7:04 PM EST ? [facility] ?[address] ?[place] [address] ? CT Scan Report ? Signed ? Patient: Edd,Sarita Jeronimo ?MR#: [id number] ?? 92 ? : 1965 ?Acct:[id number] ? Age/Sex: 58 / F ?ADM Date: 04/06/24 ? Loc: HO.ED ? Attending Dr: ? Ordering Physician: Page Garcia DO ?? Date of Service: 04/06/24 ?? Procedure(s): CT cervical spine wo IV con ?? Accession Number(s): [id number] ? cc: Page Garcia DO; Name,Kiel BAILEY ? Report Number: ?? [id number]: Total DLP = ?0.00 mGy-cm ? CLINICAL [...] ? DD/ 1902 ? TD/TT: 04/06/241901 ? Billing Clerk: ? Procedure Note Sarmad, Image - 04/06/[address] [address] CT Scan Report Signed Patient: Sarita Puga MMR#: [id number] 92 : 1965Acct:[id number] Age/Sex: 58 / FADM Date: 04/06/24 Loc: HO.ED Attending Dr: Ordering Physician: Page Garcia DO Date of Service: 04/06/24 Procedure(s): CT cervical spine wo IV con Accession Number(s): [id number] cc: Page Garcia DO; Name,Kiel BAILEY Report Number: [id number]: Total DLP = 0.00 mGy-cm CLINICAL HISTORY: [...] in OV> 04/06/241902 DD/ 01 TD/TT: 04/06/241901 Billing Clerk: [facility] External Provider IMG CT PROCEDURES Edited Result - Final * XR Humerus Left (04/06/2024 2:32 PM EST) Anatomical Region Laterality Modality Upper Extremities, Humerus Left Radio graphic Imaging 04/06/2024 2:32 PM EST Narrative 04/06/2024 3:02 PM EST ? [facility] ?[address] ?[place] [address] ?XRay Report ? Signed ? Patient: Puga,Shilpi ?MR#: [id number] ?? 92 ? : 1965 ?Acct:[id number] ? Age/Sex: 58 / F ?ADM Date: 04/06/24 ? Loc: HO.ED ? Attending Dr: ? Ordering Physician: Page Garcia DO ?? Date of Service: 04/06/24 ?? Procedure(s): XR humerus LT ?? Accession Number(s): [id number] ? cc: Page Garcia DO; Name,Kiel BAILEY [...] ? Signed By: ?<Electronically signed by Kenny Frenandes MD in OV> ?04/06/24 1459 ? DD/ 1432 ? TD/TT: 04/06/24 1446 ? Billing Clerk: ? Procedure Note Sarmad, Image - 04/06/2024 [place] [address] XRay Report Signed Patient: Sarita Puga MMR#: [id number] 92 : 1965Acct:[id number] Age/Sex: 58 / FADM Date: 04/06/24 Loc: HO.ED Attending Dr: Ordering Physician: Page Garcia DO Date of Service: 04/06/24 Procedure(s): XR humerus LT Accession Number(s): [id number] cc: Page Garcia DO; Name,Kiel BAILEY EXAMINATION: [...] 04/06/24 1459 DD/ 1432 TD/TT: 04/06/24 1446 Billing Clerk: [facility] External Provider IMG XR PROCEDURES Edited Result - Final * BI Mammogram Screening Tomosynthesis Bilateral (06/03/2023 8:45 AM EDT) Anatomical Region Laterality Modality Breast Bilateral Mammography 06/03/2023 8:45 AM EDT Narrative 06/30/2023 10:24 PM EDT ? [facility] [place] ? [address] ?[place] [address] ? Mammography Report ? Signed ? Patient: Puga,Sarita Jeronimo ?MR#: [id number] ?? 92 ? : 1965 ?Acct:[id number] ? Age/Sex: 57 / F ?ADM Date: 04/12/24 ? Loc: HO.MAMMO ? Attending Dr: Kiel Name MD ? Ordering Physician: Name,Kiel MD ?Results: 1Negative ? Date of Service: 04/12/24 ?Follow Up: 1 Year From Orig ?? inal Mammogram ? Procedure(s): MM tomosynthesis screening BI ?? Accession Number(s): [id number] ? cc: Name,Kiel BAILEY ? EXAMINATION: ?? [...] by Nancy Healy MD in OV> ? 06/30/230 ? DD/ 0845 ? TD/TT: ? Billing Clerk: ? Procedure Note Sarmad, Jung - 06/30/2023 [place] [facility] [address] [place] [address] Mammography Report Signed Patient: Sarita Puga [facility]#: [id number] : 1965Acct:[id number] Age/Sex: 57 / FADM Date: 06/03/23 Loc: [facility] Attending Dr: Kiel Shaffer MD Ordering Physician: Kiel Shaffer MDResults: 1Negative Date of Service: 06/03/23Follow Up: 1 Year From Orig ina Mammogram Procedure(s): MM tomosynthesis screening BI Accession Number(s): [id number] cc: Name,Kiel BAILEY EXAMINATION: MM SCREENING DIGITAL BREAST TOMOSYNTHESIS, BILATERAL [...] in OV> 06/30/23 2220 DD/ 0845 TD/TT: Billing Clerk: Kiel Shaffer MD IM BI PROCEDURES Edited Result - Final * Albumin, Random Urine W/Creatinine (05/26/2023 8:27 AM EDT) Creatinine, Urine 185.88 mg/dL [facility] Microalbumin Urine 23.0 mg/L [facility] Microalbum Creatinine Ratio Ur 12.3 <30 ug/mg cr [facility] Comment:Albumin/Creatinine R atio Reference Ranges: Normal: < 30 ug/mg creatinine Microalbuminuria: 30 - 300 ug/mg creatinineClinical Albuminuria: > 300 ug/mg creatinine Urine (Urine, Random) 05/26/2023 8:27 AM EDT 05/26/2023 11:19 AM EDT us Kiel Shaffer MD LAB URINE ORDERABLES Final Resul t [facility] [address] [place] [address] [phone] * Colonoscopy (07/01/2022 4:37 PM EDT) Colonoscopy Normal Normal Narrative Emely Devine - 07/01/2022 4:37 PM EDT Recommended 5 year follow up ([facility]) [facility] Provider HEALTH MAINTENANCE Final Result * Diabetes Eye Exam (05/26/2022) Eye Exam Normal Normal Kiel Shaffer MD HEALTH MAINTENANCE Final Result from Last 3 Months or Most Recently Relevant to Health Maintenance Insurance [employer] [place] [employer] [address] [place] [address] [facility] Subscriber Plan / Payer (Ef fective 2024-Present) Name:Sarita Puga M Relation to Subscriber:Self Name:Sarita Puga Payer ID:Not on file Group ID:Not on file Type:Medicaid Address: [address] [facility] [employer] [address] [address] [place] [address] [place] Care Teams Assisted Living Care Manager Relationship Specialty Start Date End Date Name, MD Kiel [address] [place] [address] PCP - General Family Medicine 07/15/15 Katlyn Rodriguez PharmD [address] [place] [address] Pharmacist Internal Medicine 10/08/22 Marta Ovalle Driller OperatorLicensed Massage Practitioner 05/25/23
--- OUTSIDE RECORDS SUMMARY | 2024-06-28 14:59 | XMS_ITS | Encounter Summary ---
Author Organization [facility] Address [address] [place] [address] Care Team Providers Care Production Staff Worker Name Role Phone Name, Kiel BAILEY Primary Care Provider Encounter Details Date Type Department Care Team Description 09/10/[address] [facility] Oncology Services [address] [place] [address] Adina Archer, [facility] Social History Tobacco Use [...] on filedocumented in this encounter Care Teams Production Staff Worker Relationship Specialty Start Date End Date Name, MD Kiel [address] [place] [address] [address] [place] [address] PCP - General Internal Medicine 04/17/18 documented as of this encounter
--- OUTSIDE RECORDS SUMMARY | 2024-06-28 14:59 | XMS_ITS | Encounter Summary ---
Author Organization [employer] Address [address] [facility] 7t [place] [address] Care Team Providers Care Nursery Rn Name Role Phone Name, Kiel BAILEY Primary Care Provider [phone] Katlyn Rodriguez PharmD Unavailable [phone] Reason for Visit * Reason Comments Med Refill Encounter Details Date Type Department Care Team (Late st Contact Info) Description 09/07/2023 Refill [facility] [address] [place], [place] [phone] Name, MD Kiel [address] [place] [address] Type 2 diabetes mellitus with other specified [...] 07/12/2024 9:30 AM EDT Medication Management [address] [address] PuiaReidKatlyn, PharmD [address] [place] [address] 07/27/2024 10:00 AM EDT Office Visit [address] [address] Name, MD Kiel [address] [place] [address] 08/20/2024 9:30 AM EDT Clinical Support [address] [address] Opal Steiner, MARINA documented as of this [...] documented as of this encounter Care Teams Nursery Rn Relationship Specialty Start Date End Date Name, MD Kiel [address] [place] [address] PCP - General Family Medicine 07/15/15 Katlyn Rodriguez, AngieD [address] [place] [address] Pharmacist Internal Medicine 10/08/22 Marta Ovalle Associate Professor Computer ScienceOperation Specialist 05/25/23 documented as of this encounter
--- OUTSIDE RECORDS SUMMARY | 2024-06-28 14:59 | XMS_ITS | Encounter Summary ---
Author Organization [employer] Address [address] [place] [address] 7t [place] [address] Care Team Providers Care In Tube Conversion Technician Name Role Phone Name, Kiel BAILEY Primary Care Provider [phone] Katlyn Rodriguez PharmD Unavailable [phone] Reason for Visit * Reason Comments Med Refill Encounter Details Date Type Department Care Team ([facility] Contact Info) Description 02/10/2022 Refill [facility] [address] [place], [place] [phone] Name, MD Kiel [address] [place] [address] Chronic pain syndrome (Primary Dx) Social History [...] Upcoming Encounters Date Type Department Care Team ([facility] Contact Info) Description 07/12/2024 9:30 AM EDT Medication Management [facility] [address] [place] [address] Katlyn Rodriguez PharmD [address] [place] [address] 07/27/2024 10:00 AM EDT Office Visit [address] [address] Name, MD Kiel [address] [place] [address] 08/20/2024 9:30 AM EDT Clinical Support [address] [address] Opal Steiner RN documented as of this encounter Visit Diagnoses Diagnosis Chronic pain syndrome- Primary documented in this encounter Care Teams In Tube Conversion Technician Relationship Specialty Start Date End Date Name, MD Kiel [address] [place] [address] PCP - General Family Medicine 07/15/15 Katlyn Rodriguez, AngieD [address] [place] [address] Pharmacist Internal Medicine 10/08/22 Marta Ovalle Grease Cup FillerCommercial Lease Administrator 05/25/23 documented as of this encounter
--- OUTSIDE RECORDS SUMMARY | 2024-06-28 14:59 | XMS_ITS | Encounter Summary ---
Author Organization [employer] Address [address] [facility] 7t [place] [address] Care Team Providers Care Building Attendant Name Role Phone Name, Kiel BAILEY Primary Care Provider [phone] Katlyn Rodriguez PharmD Unavailable [phone] Reason for Visit * Reason Comments Med Refill Encounter Details Date Type Department Care Team ([facility] st Contact Info) Description 06/27/2023 Refill [facility] MED[facility]INE [address] [place] [address] dAeniaKatlyn, PharmD [address] [place], [place] [phone] Tobacco use disorder Social History Tobacco Use [...] 07/12/2024 9:30 AM EDT Medication Management [address] [address] Puia, Katlyn, PharmD [address] [place] [address] 07/27/2024 10:00 AM EDT Office Visit [address] [address] Name, MD Kiel [address] [place] [address] 08/20/2024 9:30 AM EDT Clinical Support [address] [address] Opal Steiner, MARINA documented as of this [...] as of this encounter Care Teams Building Attendant Relationship Specialty Start Date End Date Name, MD Kiel [address] [place] [address] PCP - General Family Medicine 07/15/15 Katlyn Rodriguez, Bin [address] [place] [address] Pharmacist Internal Medicine 10/08/22 Marta Ovalle Life EducatorPhysician Industrial 05/25/23 documented as of this encounter
--- OUTSIDE RECORDS SUMMARY | 2024-06-28 14:59 | XMS_ITS | Encounter Summary ---
Author Organization [employer] Address [address] [facility] 7t [place] [address] Care Team Providers Care Technical Operations Specialist Name Role Phone Name, Kiel BAILEY Primary Care Provider [phone] Katlyn Rodriguez PharmD Unavailable [phone] Reason for Visit * Reason Onset Date Comments Reschedule 08/01/2023 Encounter Details Date Type Department Care Team ([facility] st Contact Info) Description 08/01/2023 Telephone [facility] [address] [place] [address] Name, MD Kiel [address] [place] [address] Reschedule Social History Tobacco Use Types Packs/Day [...] 08/01/2023 9:55 AM EDT Triage call with [place] Javascript Software Engineer ID [id number] . Pt reports Covid + test this [...] 08/01/2023 9:04 AM EDT Patient cancelled todays CHIEF INFORMATICS OFFICER RV appt today. Pt's CHIEF INFORMATICS OFFICER appt has been rescheduled for chronic pain [...] AM EDT Tc from pt requesting r/s CHIEF INFORMATICS OFFICER appt, stated is sick and suspect is COVID documented in this encounter Plan of Treatment Upcoming Encounters Date Type Department Care Team (Late st Contact Info) Description 07/12/2024 9:30 AM EDT Medication Management [facility] [address] [place] [address] Katlyn Rodriguez, PharmD [address] [place] [address] 07/27/2024 10:00 AM EDT Office Visit [facility] [address] [place] [address] Name, MD Kiel [address] [place] [address] 08/20/2024 9:30 AM EDT Clinical Support [facility] [address] [place] [address] Opal Steiner, RN documented as of this [...] documented as of this encounter Care Teams Technical Operations Specialist Relationship Specialty Start Date End Date Name, MD Kiel [address] [place] [address] PCP - General Family Medicine 07/15/15 Puia, Katlyn, PharmD [address] [place] [address] Pharmacist Internal Medicine 10/08/22 Marta Ovalle Gang TailerLegal Billing Clerk 05/25/23 documented as of this encounter
--- OUTSIDE RECORDS SUMMARY | 2024-06-28 14:59 | XMS_ITS | Encounter Summary ---
Author Organization [employer] Address 75 [facility] 7t [place] [address] Care Team Providers Care Gifted Program Teacher Name Role Phone Name, Kiel BAILEY Primary Care Provider [phone] Katlyn Rodriguez PharmD Unavailable [phone] Reason for Visit * Reason Onset Date Comments Durable Medical Equipment 01/24/2023 Encounter Details Date Type Department Care Team ([facility] st Contact Info) Description 01/24/2023 Telephone [facility] [address] [place] [address] Name, MD Kiel [address] [place] [address] Durable Medical Equipment Social History Tobacco Use [...] to errol. Any questions, contact pt at [phone] documented in this encounter Plan of Treatment Upcoming Encounters Date Type Department Care Team (Late st Contact Info) Description 07/12/2024 9:30 AM EDT Medication Management [address] [address] Katlyn Rodriguez PharmD [address] [place] [address] 07/27/2024 10:00 AM EDT Office Visit [address] [address] Name, MD Kiel [address] [place] [address] 08/20/2024 9:30 AM EDT Clinical Support [address] [phone] Opal Steiner, RN documented as of this [...] documented as of this encounter Care Teams Gifted Program Teacher Relationship Specialty Start Date End Date Name, MD Kiel [address] [place] [address] PCP - General Family Medicine 07/15/15 Katlyn Rodriguez, PharmD [address] [place] [address] Pharmacist Internal Medicine 10/08/22 Marta Ovalle Director Of Academic SupportAnesthesiologist Physician 05/25/23 documented as of this encounter
--- OUTSIDE RECORDS SUMMARY | 2024-06-28 14:59 | XMS_ITS | Encounter Summary ---
Author Organization [employer] Address [address] [place] [address] 7t [place] [address] Care Team Providers Care Concrete Pourer Name Role Phone Name, Kiel BAILEY Primary Care Provider [phone] Katlyn Rodriguez PharmD Unavailable [phone] Encounter Details Date Type Department Care Team (Late Contact Info) Description 10/29/[address] [address] Name, MD Kiel [address] [place] [address] Social History Tobacco Use Types Packs/Day Years [...] Description 07/12/2024 9:30 AM EDT Medication Management [facility] MEDICINE [address] [place] [address] AdeniaKatlyn, PharmD [address] [place] [address] 07/27/2024 10:00 AM EDT Office Visit [facility] [place] [address] [place] [address] 08/20/2024 9:30 AM EDT Clinical Support [facility] [place] [address] Opal Steiner, RN documented as of this encounter Goals Goal Patient Goal Type Associated Problems Recent Progress Patient-Stated? Author Hemoglobin A1c < 7 Result Component 6.7( 9:59 AM EDT) No Katlyn Rodriguez, PharmD Record your blood sugar as directed Result Component No PuReid albertyssa, PharmD documented as of this encounter Procedures [...] documented as of this encounter Care Teams Concrete Pourer Relationship Specialty Start Date End Date Name, [place] [address] PCP - General Family Medicine 07/15/15 Puia, Kat[place], [place] [address] Pharmacist Internal Medicine 10/08/22 Marta Ovalle Optical DispenserFundraising Assistant 05/25/23 documented as of this encounter
--- OUTSIDE RECORDS SUMMARY | 2024-06-28 14:59 | XMS_ITS | Encounter Summary ---
Author Organization [employer] Address 75 [facility] 7t [place] [address] Care Team Providers Care Mobile Patrol Officer Name Role Phone Name, Kiel BAILEY Primary Care Provider [phone] Katlyn Rodriguez PharmD Unavailable [phone] Reason for Visit * Reason Onset Date Comments Durable Medical Equipment 12/06/2022 Encounter Details Date Type Department Care Team ([facility] st Contact Info) Description 12/06/[address] [facility] MEDICINE [address] [place] [address] Name, MD Kiel [address] [place] [address] Durable Medical Equipment Social History Tobacco Use [...] to message above. Please contact pt at [phone] (Vincentian) * Telephone Encounter - Jean-Paul Finch - 12/06/2022 3:29 PM EDT Tc from pt requesting status on some bed absorbant pads to not stain bed. Please contact pt at [phone] Vincentian Speaker documented in this encounter Plan of Treatment Upcoming Encounters Date Type Department Care Team (Late st Contact Info) Description 07/12/2024 9:30 AM EDT Medication Management [facility] MED[facility] [address] [place] [address] Katlyn Rodriguez, PharmD [address] [place] [address] 07/27/2024 10:00 AM EDT Office Visit [facility] [address] [place] [address] [place] [address] Name, MD Kiel [address] [place] [address] 08/20/2024 9:30 AM EDT Clinical Support [facility] [address] [place] [address] Opal Steiner, MARINA documented as of this [...] as of this encounter Care Teams Mobile Patrol Officer Relationship Specialty Start Date End Date Name, MD Kiel [address] [place] [address] PCP - General Family Medicine 07/15/15 Puia, Katlyn, PharmD [address] [place] [address] Pharmacist Internal Medicine 10/08/22 Marta Ovalle Bindery LeadpersonAdmitting Clerk 05/25/23 documented as of this encounter
--- OUTSIDE RECORDS SUMMARY | 2024-06-28 14:59 | XMS_ITS | Encounter Summary ---
Author Organization [facility] Address [address] [place] [address] Care Team Providers Care Adult Care Provider Name Role Phone Name, Kiel BAILEY Primary Care Provider [phone] Encounter Details Date Type Department Care Team (Late Contact Info) Description 11/24/2023 10:30 AM EDT Hospital Encounter TH HISTORIC ENCOUNTERS EASTERN CONVERSION ONLY Geoffrey-Art Vitale MD [address] [place] [phone] Social History Tobacco Use Types Packs/Day Years [...] Department Care Team (Late Contact Info) Description 08/27/2024 9:45 AM EDT Office Visit [facility] [address] [facility] [address] [place] [phone] Wesley Garcia, DPM [address] [facility] [address] [place] [address] documented as of this encounter Visit Diagnoses Not on filedocumented in this encounter Additional Health Concerns Infection Onset Date Last Indicated Resolved Time Respiratory Rule-Out 02/05/2024 02/05/2024 024 8:09 AM EST COVID-19 Rule-Out 02/05/2024 02/05/2024 02/05/2024 8:09 AM EST documented as of this encounter Care Teams Adult Care Provider Relationship Specialty Start Date End Date Name, MD Kiel [address] [place] PCP - General Internal Medicine 08/28/15 documented as of this encounter
--- OUTSIDE RECORDS SUMMARY | 2024-06-28 14:59 | XMS_ITS | Clinical Summary ---
Author Organization [facility] Address [address] [place] [address] Care Team Providers Care Chalk Tester Name Role Phone Name, Kiel BAILEY Primary Care Provider [phone] Allergies Active Allergy Reactions Criticality Noted Date [...] age to complete this topic Care Teams Chalk Tester Relationship Specialty Start Date End Date Name, MD Kiel [address] [facility] [place] [address] [place] [address] PCP - General Internal Medicine 04/17/18
--- OUTSIDE RECORDS SUMMARY | 2024-06-28 14:59 | XMS_ITS | Encounter Summary ---
Author Organization [employer] Address [address] [facility] [address] 7t [place] [address] Care Team Providers Care Mice Raiser Name Role Phone Name, Kiel BAILEY Primary Care Provider [phone] Katlyn Rodriguez PharmD Unavailable [phone] Encounter Details Date Type Department Care Team ([facility] st Contact Info) Description 05/01/2024 Telephone [facility] [address] [place], [place] [phone] Name, MD Kiel [address] [place] [address] Social History Tobacco Use Types Packs/Day Years [...] Description 07/12/2024 9:30 AM EDT Medication Management [address] [address] Katlyn Rodriguez, PharmD [address] [place] [address] 07/27/2024 10:00 AM EDT Office Visit [address] [address] Name, MD Kiel [address] [place] [address] 08/20/2024 9:30 AM EDT Clinical Support [address] [address] Opal Steiner, RN documented as of this [...] documented as of this encounter Care Teams Mice Raiser Relationship Specialty Start Date End Date Name, MD Kiel [address] [place] [address] PCP - General Family Medicine 07/15/15 Puia, Katlyn, PharmD [address] [place] [address] Pharmacist Internal Medicine 10/08/22 Marta Ovalle Loan SupervisorManager Agriculture 05/25/23 documented as of this encounter
--- OUTSIDE RECORDS SUMMARY | 2024-06-28 14:59 | XMS_ITS | Encounter Summary ---
Author Organization [employer] Address 75 [facility] 7t [place] [address] Care Team Providers Care Registry Rn Name Role Phone Name, Kiel BAILEY Primary Care Provider [phone] Katlyn Rodriguez PharmD Unavailable [phone] Encounter Details Date Type Department Care Team ([facility] Contact Info) Description 03/12/2022 Orders Only [facility]S [address] [place], [place] [phone] Millie Sawant LPN Social History Tobacco Use [...] Upcoming Encounters Date Type Department Care Team ([facility] Contact Info) Description 07/12/2024 9:30 AM EDT Medication Management [facility] [address] [place], [place] [phone] Katlyn Rodriguez, PharmD [address] [place], [place] [phone] 07/27/2024 10:00 AM EDT Office Visit [address] [address] Name, MD Kiel [facility] [place] [address] 08/20/2024 9:30 AM EDT Clinical Support [address] [address] Opal Steiner, MARINA documented as of this encounter Visit Diagnoses Not on filedocumented in this encounter Care Teams Registry Rn Relationship Specialty Start Date End Date Name, [place] [address] PCP - General Family Medicine 07/15/15 Katlyn Rodriguez PharmD [address] [place] [address] Pharmacist Internal Medicine 10/08/22 Marta Ovalle Core Layer Machine OperatorDigester 05/25/23 documented as of this encounter
--- OUTSIDE RECORDS SUMMARY | 2024-06-28 15:00 | XMS_ITS | Encounter Summary ---
Author Organization [employer] Address [address] [facility] [address] 7t [place] [address] Care Team Providers Care Robotic Welding Operator Name Role Phone Name, Kiel BAILEY Primary Care Provider [phone] Katlyn Rodriguez PharmD Unavailable Reason for Visit * Reason Onset Date Comments Chart Prep 06/27/2024 Encounter Details Date Type Department Care Team ([facility] st Contact Info) Description 06/27/2024 Telephone [facility] MEDICINE [address] [place] [address] Keely Leija MA Chart Prep Social History Tobacco Use Types Packs/Day Years [...] encounter Miscellaneous Notes * Telephone Encounter - Keely Leija MA - 06/27/2024 10:28 AM EDT Chart Prep Labs: done Images: done Referrals: Physical Therapy and Physiatry, Referrals and notes faxed to office. Referral letter mailed to patient with further instructions. Vaccines due: Covid Screenings: Urine protein, Hep C, HIV Overdue care gaps: SBIRT, Disability screen, and Tobacco, A1C, Glucose documented in this encounter Plan of Treatment Upcoming Encounters Date Type Department Care Team (Late st Contact Info) Description 07/12/2024 9:30 AM EDT Medication Management [address] [address] Katlyn Rodriguez, PharmD [address] [place] [address] 07/27/2024 10:00 AM EDT Office Visit [address] [address] Name, MD Kiel [address] [place] [address] 08/20/2024 9:30 AM EDT Clinical Support [address] [address] Opal Steiner, RN documented as of this [...] Date End Date Name, MD Kiel [address] [place] [address] PCP - General Family Medicine 07/15/15 Puia, Katlyn, PharmD [address] [place] [address] Pharmacist Internal Medicine 10/08/22 Marta Ovalle CovererRecruiting Internship 05/25/23 documented as of this encounter
--- OUTSIDE RECORDS SUMMARY | 2024-06-28 15:00 | XMS_ITS | Encounter Summary ---
Author Organization [employer] Address [address] [place] [address] 7t [place] [address] Care Team Providers Care Press Bucker Name Role Phone Name, Kiel BAILEY Primary Care Provider [phone] Katlyn Rodriguez PharmD Unavailable [phone] Encounter Details Date Type Department Care Team (Late Contact Info) Description 07/01/[address] [facility] MED[facility]INE [address] [place] [address] Name, MD Kiel [address] [place] [address] Social History Tobacco Use Types Packs/Day Years [...] Upcoming Encounters Date Type Department Care Team ([facility] Contact Info) Description 07/12/2024 9:30 AM EDT Medication Management [facility] [address] [place] [address] Katlyn Rodriguez PharmD [address] [place] [address] 07/27/2024 10:00 AM EDT Office Visit [address] [address] Name, MD Kiel [address] [place] [address] 08/20/2024 9:30 AM EDT Clinical Support [address] [address] Opal Steiner, MARINA documented as of this encounter Visit Diagnoses Not on filedocumented in this encounter Care Teams Press Bucker Relationship Specialty Start Date End Date Name, MD Kiel [address] [place] [address] PCP - General Family Medicine 07/15/15 Katlyn Rodriguez, PharmD [address] [place] [address] Pharmacist Internal Medicine 10/08/22 Marta Ovalle Echo Vascular TechBrick Sorter 05/25/23 documented as of this encounter
--- OUTSIDE RECORDS SUMMARY | 2024-06-28 15:00 | XMS_ITS | Encounter Summary ---
Author Organization [employer] Address [address] [place] [address] 7t [place] [address] Care Team Providers Care Paper Twister Name Role Phone Name, Kiel BAILEY Primary Care Provider [phone] Katlyn Rodriguez PharmD Unavailable [phone] Encounter Details Date Type Department Care Team (Late Contact Info) Description 07/01/2022 Abstract [facility] MEDICINE [address] [place] [address] Name, MD Kiel [address] [place] [address] 77678 Social History Tobacco Use Types Packs/Day Years [...] Type Department Care Team ([facility] Contact Info) Description 07/12/2024 9:30 AM EDT Medication Management [facility] MEDICINE [address] [place] [address] Katlyn Rodriguez PharmD [address] [place] [address] 328[address] 07/27/2024 10:00 AM EDT Office Visit [address] [phone] Name, MD Kiel [address] [place] [address] 08/20/2024 9:30 AM EDT Clinical Support [address] [phone] Opal Steiner, MARINA documented as of this encounter Procedures Procedure Name Priority Date/Time Associated Diagnosis Comments COLONOSCOPY Routine 07/01/2022 4:37 PM EDT documented in this encounter Results * Colonoscopy (07/01/2022 4:37 PM EDT) Colonoscopy Normal Normal Narrative Emely Devine - 07/01/2022 4:37 PM EDT Recommended 5 [place] [place] us Historical Provider HEALTH MAINTENANCE Final Result documented in this encounter Visit Diagnoses Not on filedocumented in this encounter Care Teams Paper Twister Relationship Specialty Start Date End Date Name, MD Kiel [address] [place] [address] PCP - General Family Medicine 07/15/15 Katlyn Rodriguez, PharmD [address] [place] [address]10 Pharmacist Internal Medicine 10/08/22 Marta Ovalle Grants AssistantEdge Beader 05/25/23 documented as of this encounter
--- OUTSIDE RECORDS SUMMARY | 2024-06-28 15:00 | XMS_ITS | Encounter Summary ---
Author Organization [employer] Address [address] [place] [address] 7t [place] [address] Care Team Providers Care Cribber Name Role Phone Name, Kiel BAILEY Primary Care Provider [phone] Katlyn Rodriguez PharmD Unavailable [phone] Reason for Visit * Reason Comments Med Refill Encounter Details Date Type Department Care Team (Late st Contact Info) Description 07/16/2022 Refill [facility] [address] [place], [place] [phone] Name, MD Kiel [address] [place] [address] Chronic pain syndrome Social History Tobacco Use [...] 07/12/2024 9:30 AM EDT Medication Management [address] [address] Katlyn Rodriguez PharmD [address] [place] [address] 07/27/2024 10:00 AM EDT Office Visit [address] [address] Name, MD Kiel [address] [place] [address] 08/20/2024 9:30 AM EDT Clinical Support [address] [address] Opal Steiner, RN documented as of this encounter Visit Diagnoses Diagnosis Chronic pain syndrome documented in this encounter Additional Health Concerns Assessment Noted Time PHQ-9 Depression Total Score: 7 07/15/19 23 2:39 PM EDT documented as of this encounter Care Teams Cribber Relationship Specialty Start Date End Date Name, MD Kiel [address] [place] [address] PCP - General Family Medicine 07/15/15 Katlyn Rodriguez PharmD [address] [place] [address] Pharmacist Internal Medicine 10/08/22 Marta Ovalle Television News ReporterAssociate Entertainment Editor 05/25/23 documented as of this encounter
--- OUTSIDE RECORDS SUMMARY | 2024-06-28 15:00 | XMS_ITS | Encounter Summary ---
Author Organization [employer] Address [address] [facility] 7t [place] [address] Care Team Providers Care Reference Archivist Name Role Phone Name, Kiel BAILEY Primary Care Provider [phone] Katlyn Rodriguez PharmD Unavailable [phone] Encounter Details Date Type Department Care Team (Latest Contact Info) Description 06/28/2024 Travel Social History Tobacco Use Types Packs/Day [...] Description 07/12/2024 9:30 AM EDT Medication Management [address] [address] Puia, Katlyn, PharmD [address] [place] [address] 07/27/2024 10:00 AM EDT Office Visit [address] [address] Name, MD Kiel [address] [place] [address] 08/20/2024 9:30 AM EDT Clinical Support [address] [address] Opal Steiner, MARINA documented as of this [...] documented as of this encounter Care Teams Reference Archivist Relationship Specialty Start Date End Date Name, MD Kiel [address] [place] [address] PCP - General Family Medicine 07/15/15 Katlyn Rodriguez PharmD [address] [place] [address] Pharmacist Internal Medicine 10/08/22 Marta Ovalle Quilting Machine OperatorManual Arts Therapist 05/25/23 documented as of this encounter
--- OUTSIDE RECORDS SUMMARY | 2024-06-28 15:00 | XMS_ITS | Encounter Summary ---
Author Organization [employer] Address [address] [place] [address] 7t [place] [address] Care Team Providers Care Area Forester Name Role Phone Name, Kiel BAILEY Primary Care Provider [phone] Katlyn Rodriguez PharmD Unavailable [phone] Reason for Visit * Reason Comments Med Refill Encounter Details Date Type Department Care Team (Late st Contact Info) Description 06/28/2022 Refill [facility] MEDICINE [address] [place] [address] Name, MD Kiel [address] [place] [address] Chronic pain syndrome Social History Tobacco Use [...] Upcoming Encounters Date Type Department Care Team ([facility] Contact Info) Description 07/12/2024 9:30 AM EDT Medication Management [facility] MEDICINE [address] [place] [address] Katlyn Rodriguez PharmD [address] [place] [address] 07/27/2024 10:00 AM EDT Office Visit [address] [address] Name, MD Kiel [address] [place] [address] 08/20/2024 9:30 AM EDT Clinical Support [address] [address] Opal Steiner RN documented as of this encounter Visit Diagnoses Diagnosis Chronic pain syndrome documented in this encounter Care Teams Area Forester Relationship Specialty Start Date End Date Name, MD Kiel [address] [place] [address] PCP - General Family Medicine 07/15/15 Katlyn Rodriguez, PharmD [address] [place] [address] Pharmacist Internal Medicine 10/08/22 Marta Ovalle Emerging Technologies DirectorTurfgrass Technician 05/25/23 documented as of this encounter
--- OUTSIDE RECORDS SUMMARY | 2024-06-28 15:00 | XMS_ITS | Encounter Summary ---
Author Organization [employer] Address [address] [facility] 7t [place] [address] Care Team Providers Care Disk Recoater Name Role Phone Name, Kiel BAILEY Primary Care Provider [phone] Katlyn Rodriguez PharmD Unavailable [phone] Reason for Visit * Reason Comments Med Refill Encounter Details Date Type Department Care Team ([facility] st Contact Info) Description 06/08/2024 Refill [facility] [address] [place], [place] [phone] Name, MD Kiel [address] [place] [address] Chronic pain syndrome Social History Tobacco Use [...] 07/12/2024 9:30 AM EDT Medication Management [address] [address] PuiaReidKatlyn, PharmD [address] [place] [address] 07/27/2024 10:00 AM EDT Office Visit [address] [address] Name, MD Kiel [address] [place] [address] 08/20/2024 9:30 AM EDT Clinical Support [address] [address] Opal Steiner RN documented as of this encounter Goals Goal Patient Goal Type Associated Problems Recent Progress Patient-Stated? Author Record your blood pressure once per day Blood Pressure No Puia, Katlyn, PharmD Blood Pressure < 140/90 Blood Pressure 81/56( 025 9:57 AM EDT) No Puia, Katlyn, PharmD Hemoglobin A1c < 7 Result Component 6.7( 9:59 AM EDT) No PuiaReidKatlyn, PharmD Record your blood sugar as directed Result Component No AdeniaReidKatlyn, PharmD documented as of this encounter Visit Diagnoses Diagnosis Chronic pain syndrome documented in this encounter Additional Health Concerns Assessment Noted Time PHQ-9 Depression Total Score: 4 09/02/19 24 10:30 AM EDT documented as of this encounter Care Teams Disk Recoater Relationship Specialty Start Date End Date Name, MD Kiel [address] [place] [address] PCP - General Family Medicine 07/15/15 Katlyn Rodriguez, PharmD [address] [place] [address] Pharmacist Internal Medicine 10/08/22 Marta Ovalle Transition MgrDie Caster 05/25/23 documented as of this encounter
--- OUTSIDE RECORDS SUMMARY | 2024-06-28 15:00 | XMS_ITS | Encounter Summary ---
Author Organization [employer] Address [address] [facility] 7t [place] [address] Care Team Providers Care Kiln Charger Name Role Phone Name, Kiel BAILEY Primary Care Provider Katlyn Rodriguez PharmD Unavailable [phone] Reason for Visit * Reason Comments HDF Encounter Details Date Type Department Care Team ([facility] st Contact Info) Description 06/28/2024 10:00 AM EDT Office Visit [facility] MEDICINE [address] [place] [address] Name, MD Kiel [address] [place] [address] Cerebellar mass (Primary Dx); Type 2 diabetes mellitus with other specified complication, with long-term current use of insulin ([facility]); Gait instability; Chronic intractable headache, unspecified headache type Social History Tobacco Use Types Packs/Day Years [...] Mass Index 39.86 06/28/2024 9:57 AM EDT documented in this encounter Progress Notes * Kiel Shaffer MD - 06/28/2024 10:00 AM EDT Subjective Patient ID: Sarita Puga is a 58 y.o. female who presents for HDF. Patient comes for posthospital follow-up. She was [place] [facility] [place] of complaints ofsevere headaches. The daughter explains to me that she is having slurred speech and severe headacheand they took her to the hospital to make sure she was not having a stroke. Evaluation at [facility] included CT and MRI of the head that revealed the presence of a cerebellar lesion. The exactetiology of the lesion is not clear and the differential is between a stroke and a neoplasm.. The current plan is to repeat the MRI in a few weeks. Patient was seen by neurology [place] [facility] already and the repeat MRI is already ordered by neurology. She does not have any focal weakness. She continues to have a severe headache. Today she also requested a letter to move to a first-floor apartment. 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 She uses a cane. She has also requested a prescription for a motorized wheelchair. Summary of the recent specialization is written below: [facility] [place] Patient with left sided headache along with left facial numbness and weakness. CAT scan questionable for 1 cm hyperintense attenuation right cerebral peduncle question subacute hemorrhage. MRI consistent with cerebellar lesion. Received 2 doses of dexamethasone and sent home with 2 mg once daily. Headache managed with 10 mg oxycodone, frequency increased to three times a day for 1 month. Discharge d home to follow up with PCP and Dr. Villaseñor Medication changes that occurred during hospitalization include: ?? Added ?? Oxycodone 10 mg once daily as needed for headache ?? Instructed to take along with home supply of twice a day to increase frequency to three times a day ?? Confirmed with [facility] [place], not picked up ?? Dexamethasone 4 mg tab - take 2 mg once daily ?? Picked up 06/20/24 x 44 days ?? Changed: none ?? Discontinued: none Review of Systems Constitutional: Negative for chills and fever. HENT: Negative for sore throat. Respiratory: Negative for cough, shortness of breath and wheezing. Cardiovascular: Negative for chest pain, palpitations and leg swelling. Gastrointestinal: Negative for abdominal pain. Neurological: Positive for headaches. Visit Vitals BP 81/56 (BP Location: Left arm, Patient Position: Sitting, BP Cuff Size: Large adult) Pulse 77 Temp 98.2 ??F (36.8 ??C) (Oral) Resp 20 Ht 5' 3 (1.6 m) Wt 225 lb (102 kg) SpO2 95% BMI 39.86 kg/m?? Smoking Status Former BSA 2.13 m?? Objective Physical Exam Constitutional: Appearance: Normal appearance. Cardiovascular: Rate and Rhythm: Normal rate and regular rhythm. Heart sounds: No murmur heard. No gallop. Pulmonary: Effort: Pulmonary effort is normal. No respiratory distress. Breath sounds: Normal breath sounds. No wheezing. Musculoskeletal: Right lower leg: No edema. Left lower leg: No edema. Comments: Antalgic gait. The patient uses a cane. Bilateral knee pain with active and passive range of motion. Neurological: General: No focal deficit present. Mental Status: She is alert. Motor: No weakness. [place] [id number] Magnetic Resonance Report Signed with Addenda Patient: Sarita Puga MR#: [id number] : 1965 Acct:[id number] Age/Sex: 58 / F ADM Date: 06/18/24 [place]: Ghulam Galvez DO Ordering Physician: Maggie Pfeiffre Date of Service: 06/18/24 Procedure(s): MR head/brain wo/w con Accession Number(s): [id number] cc: Maggie Pfeiffer; Name,Kiel BAILEY ADDENDUM This document has been electronically signed by: Jennifer Madison MD on 06/18/2024 20:47:14 ADDENDUM: This report was discussed with Kati Curiel RN on Jun 18, 2024 21:28:00 EDT. This document has been electronically signed by: Karen Sparks on 06/18/2024 21:29:16 Addendum Dictated By: Jennifer Madison MD Addendum Signed By: <Electronically signed by Jennifer Madison MD in OV> 06/18/242129 Addendum Cosigned By: DD/ TD/TT: 06/18/24 CLINICAL HISTORY: ?subacute hemorrhagic CVA --- Additional Notes or Special Instructions: Allergic to barium sulfateSevere claustrophobic pt. Multiple reminders given, tried scanning Blades as possible, unable to repeat. Best exam obtained MR Brain with and without gadolinium Comparison: CT/OR/SR - CT HEAD FOR STROKE - 06/18/24 [...] by: Jennifer Madison MD on 06/18/2024 20:47:14 Assessment/Plan Diagnoses and all orders for this visit: Cerebellar mass Comments: I recommended the patient to continue current medications. Keep appointment for repeat MRI of the head. Continue follow-up with neurology. I agreed to increase her dose of oxycodone to 3 times a day to help her with the headaches. I will message PA specialist to help her obtain an electrical wheelchair. I will message forms specialist to help her move to a first-floor apartment. She will follow-up with me after the repeat MRI. Further recommendation based on the results. Orders: - oxyCODONE (Roxicodone) 10 MG immediate release tablet; Take 1 tablet (10 mg) by mouth 3 times daily for 28 days. Type 2 diabetes mellitus with other specified complication, with long-term current use of insulin ([facility]) - POCT Glucose - POCT HGB A1C Gait instability Chronic intractable headache, unspecified headache type - oxyCODONE (Roxicodone) 10 MG immediate release tablet; Take 1 tablet (10 mg) by mouth 3 times daily for 28 days. documented in this encounter Plan of Treatment Upcoming Encounters Date Type Department Care Team (Late st Contact Info) Description 07/12/2024 9:30 AM EDT Medication Management [address] [address] Katlyn Rodriguez PharmD [address] [place] [address] 07/27/2024 10:00 AM EDT Office Visit [address] [phone] Kiel Shaffer MD [address] [place] [address] 08/20/2024 9:30 AM EDT Clinical Support [address] [address] Opal Steiner RN documented as of this encounter Goals Goal Patient Goal Type Associated Problems Recent Progress Patient-Stated? Author Record your blood pressure once per day Blood Pressure No PuiaKatlyn, PharmD Blood Pressure < 140/90 Blood Pressure 81/56( 025 9:57 AM EDT) No Puia Katlyn, PharmD Hemoglobin A1c < 7 Result Component 6.7( 9:59 AM EDT) No Puia Katlyn, PharmD Record your blood sugar as directed Result Component No Puia Katlyn, PharmD documented as of this encounter Procedures Procedure Name Priority Date/Time Associated Diagnosis Comments POCT GLYCATED HEMOGLOBIN, TOTAL Routine 06/28/2024 9:59 AM EDT Type 2 diabetes mellitus with other specified complication, with long-term current use of insulin ([facility]) POCT GLUCOSE Routine 06/28/2024 9:58 AM EDT Type 2 diabetes mellitus with other specified complication, with long-term current use of insulin ([facility]) documented in this encounter Results * (ABNORMAL) POCT HGB A1C (06/28/2024 9:59 AM EDT) Hemoglobin A1C 6.7(A) 4.0 - 6.0 % QC Media Lot # [id number] Lot# Expiration Date [id number] Blood 06/28/2024 9:59 AM EDT us Kiel Shaffer MD POINT OF CARE TEST ENTER/EDIT OR DERABLES Final Result * (ABNORMAL) POCT Glucose (06/28/2024 9:58 AM EDT) Glucose Blood, POC 205(A) 60 - 200 mg/dL QC Media Lot # [id number] Lot# Expiration Date 03854 Blood Capillary blood specimen / Unknown 06/28/2024 9:58 AM EDT us Kiel Shaffer MD POINT OF CARE TEST ENTER/EDIT OR DERABLES Final Result documented in this encounter Visit Diagnoses Diagnosis Cerebellar mass- Primary Type 2 diabetes mellitus with other specified complication, with long-term current use of insulin ([facility]) Gait instability Abnormality of gait Chronic intractable headache, unspecified headache type documented in this encounter Additional Health Concerns Assessment Noted Time PHQ-9 Depression Total Score: 4 09/02/19 24 10:30 AM EDT documented as of this encounter Care Teams Kiln Charger Relationship Specialty Start Date End Date Name, MD Kiel [address] [place] [address] PCP - General Family Medicine 07/15/15 Katlyn Rodriguez PharmD [address] [place] [address] Pharmacist Internal Medicine 10/08/22 Marta Ovalle Publicity WriterManager Play 05/25/23 documented as of this encounter
--- OUTSIDE RECORDS SUMMARY | 2024-06-28 15:00 | XMS_ITS | Encounter Summary ---
Author Organization [employer] Address [address] [place] [address] 7t [place] [address] Care Team Providers Care Machine Made Shoe Unit Worker Name Role Phone Name, Kiel BAILEY Primary Care Provider [phone] Katlyn Rodriguez PharmD Unavailable [phone] Reason for Visit * Reason Comments Med Refill Encounter Details Date Type Department Care Team ([facility] Contact Info) Description 07/02/2022 Refill [facility] MEDICINE [address] [place] [address] Name, MD Kiel [address] [place] [address] Chronic pain syndrome Social History Tobacco Use [...] Upcoming Encounters Date Type Department Care Team ([facility] Contact Info) Description 07/12/2024 9:30 AM EDT Medication Management [facility] MEDICINE [address] [place] [address] Katlyn Rodriguez PharmD [address] [place] [address] 07/27/2024 10:00 AM EDT Office Visit [address] [address] Name, MD Kiel [address] [place] [address] 08/20/2024 9:30 AM EDT Clinical Support [address] [address] Opal Steiner RN documented as of this encounter Visit Diagnoses Diagnosis Chronic pain syndrome documented in this encounter Care Teams Machine Made Shoe Unit Worker Relationship Specialty Start Date End Date Name, MD Kiel [address] [place] [address] PCP - General Family Medicine 07/15/15 Katlyn Rodriguez, PharmD [address] [place] [address] Pharmacist Internal Medicine 10/08/22 Marta Ovalle Pulmonary Function TechnologistLevers Lace Machine Operator 05/25/23 documented as of this encounter
--- OUTSIDE RECORDS SUMMARY | 2024-06-28 15:00 | XMS_ITS | Encounter Summary ---
Author Organization [employer] Address [address] [facility] 7t [place] [address] Care Team Providers Care Aeronautical Engineering Teacher Name Role Phone Name, Kiel BAILEY Primary Care Provider [phone] Katlyn Rodriguez PharmD Unavailable [phone] Reason for Visit * Reason Comments Med Refill Encounter Details Date Type Department Care Team ([facility] st Contact Info) Description 06/08/2024 Refill [facility] [address] [place], [place] [phone] Name, MD Kiel [address] [place] [address] Chronic pain syndrome Social History Tobacco Use [...] Description 07/12/2024 9:30 AM EDT Medication Management [address] [address] PuiaReidKatlyn, PharmD [address] [place] [address] 07/27/2024 10:00 AM EDT Office Visit [address] [address] Name, MD Kiel [address] [place] [address] 08/20/2024 9:30 AM EDT Clinical Support [address] [address] Opal Steiner RN documented as of this [...] documented as of this encounter Care Teams Aeronautical Engineering Teacher Relationship Specialty Start Date End Date Name, MD iKel [address] [place] [address] PCP - General Family Medicine 07/15/15 Katlyn Rodriguez, PharmD [address] [place] [address] Pharmacist Internal Medicine 10/08/22 Marta Ovalle Hydroelectric Plant OperatorComposing Room Machinist Apprentice 05/25/23 documented as of this encounter
--- OUTSIDE RECORDS SUMMARY | 2024-06-28 15:00 | XMS_ITS | Encounter Summary ---
Author Organization [employer] Address [address] [facility] 7t [place] [address] Care Team Providers Care Network Architect Name Role Phone Name, Kiel BAILEY Primary Care Provider [phone] Katlyn Rodriguez PharmD Unavailable [phone] Reason for Visit * Reason Onset Date Comments Appointment Request 02/29/2024 Encounter Details Date Type Department Care Team ([facility] st Contact Info) Description 02/29/2024 Telephone [facility] MEDICINE [address] [place] [address] Name, MD Kiel [address] [place] [address] Appointment Request Social History Tobacco Use Types [...] different date and time. Pt does speak divehi so you will need an orderlies teacher. documented in this encounter Plan of Treatment Upcoming Encounters Date Type Department Care Team (Late st Contact Info) Description 07/12/2024 9:30 AM EDT Medication Management [address] [address] Katlyn Rodriguez, PharmD [address] [place] [address] 07/27/2024 10:00 AM EDT Office Visit [address] [address] Name, MD Kiel [address] [place] [address] 08/20/2024 9:30 AM EDT Clinical Support [address] [address] Opal Steiner, RN documented as of this [...] documented as of this encounter Care Teams Network Architect Relationship Specialty Start Date End Date Name, MD Kiel [address] [place] [address] PCP - General Family Medicine 07/15/15 Puia, Katlyn, PharmD [address] [place] [address] Pharmacist Internal Medicine 10/08/22 Marta Ovalle Library ManagerCare Giver 05/25/23 documented as of this encounter
== END 2024-06-28 14:07 | disposition home or self-care (01) ==
LOC: HO.NEURO 14:06
PROVIDERS: Visit Provider Physician Assistant
DX: M25.522 Pain in left elbow (principal)
CPT/HCPCS: 95886; 95909

== ENCOUNTER → 2024-06-28 14:08 | Outpatient (BNV) | payer MEDICAID, SELFPAY | PROVIDERS: Visit Provider Physical Medicine & Rehabilitation | DX: G56.02 Carpal tunnel syndrome, left upper limb (principal) | CPT/HCPCS: 95886; 95909 ==

== ENCOUNTER 2024-07-04 11:05 | Outpatient (AMB) | payer MEDICAID, SELFPAY ==
--- NOTE | 2024-07-04 11:08 | MHC.OFFVIS ---
Vital Signs 07/04/24 11:09 Height 5 ft 3 in Weight 227 lb BMI 40.2 BP 104/60 Blood Pressure Location Lt brachial Position Sitting Pulse 73 Pulse Source Pulse Oximeter Pulse Oximetry (%) 97 Oxygen Delivery Method Room Air Intake Visit Reasons: Asthma Intake Note: pt is here for follow up and states her breathing is not too good, coughing, wheezing and short of breath Chicken Raiser Required: No Allergies penicillin G [Penicillin G] Allergy (Mild, Verified 07/04/24 11:12) SWELLING barium sulfate [ORAL CONTRAST] Allergy (Unknown, Verified 07/04/24 11:12) HIVES cephalexin Allergy (Unknown, Verified 07/04/24 11:12) Unknown Medication List - Last Reconciled 07/04/24 by Caryl Churchill MD acetaminophen ER 650 mg PO Q8H PRN albuterol sulfate 2.5 mg inhalation Q4H PRN albuterol sulfate 90 mcg/actuation (Ventolin HFA) 2 puffs inhalation Q4H PRN aspirin 1 tab PO BEDTIME atorvastatin 80 mg PO BEDTIME baclofen 10 mg PO TID PRN calcium carbonate-vitamin D3 600 mg-5 mcg (200 unit) 1 tab PO BID cetirizine (Zyrtec) 10 mg PO DAILY clonidine HCl 0.1 mg PO BEDTIME dexamethasone 2 mg (1/2 x 4 mg) PO DAILY ezetimibe 10 mg PO DAILY famotidine 20 mg PO BID fluticasone propion-salmeterol 115-21 mcg/actuation (Advair HFA) 2 puffs inhalation Q12H 30 days furosemide 20 mg PO DAILY gabapentin 600 mg PO TID PRN icosapent ethyl 2 grams PO BID insulin glargine (Lantus Solostar U-100 Insulin) 32 units subcut DAILY ipratropium-albuterol 20-100 mcg/actuation (Combivent Respimat) 1 puff PO Q6H lidocaine 5% 1 patch topical DAILY losartan 50 mg PO DAILY meloxicam 7.5 mg PO DAILY metformin ER 500 mg PO BEDTIME metoprolol succinate ER 25 mg PO BEDTIME montelukast (Singulair) 10 mg PO BEDTIME oxcarbazepine 150 mg PO DAILY oxcarbazepine 450 mg PO BEDTIME oxycodone 10 mg PO DAILY PRN paroxetine HCl 40 mg PO BEDTIME pen needle, diabetic (Pentips Pen Needle) As directed pyridoxine (vitamin B6) 100 mg PO DAILY 90 days tirzepatide (Mounjaro) 15 mg subcut TH@0900 trazodone 100 mg PO BEDTIME PRN Do you need a note to return to daycare/school/sports/work: No HPI HPI Asthma: Details: SHITAL IS A PLEASANT 50-YEAR-OLD HERE TODAY FOR A 6 MONTH FOLLOW-UP FOR HER DRE ALLERGIC RHINITIS AND ASTHMA SHE HAS BEEN SLEEPING WELL AND CONTINUES TO USE 2 L OF OXYGEN EVERY NIGHT HAS HAD SOME NASAL CONGESTION BUT IT HAS BEEN WELL CONTROLLED USING ZYRTEC A MONTELUKAST DAILY HAS NOT HAD ANY INCREASE IN SHORTNESS OF BREATH WITH EXERTION CONTINUES TO USE ADVAIR INHALER ALONG WITH SPIRIVA COMBIVENT NEEDED FOR SHORTNESS OF BREATH WAS RECENTLY ADMITTED TO THE HOSPITAL AFTER HAVING NEURO CHANGES AND HEADACHE. MRI SHOWING QUESTION OF SUBACUTE INFARCT VS NEOPLASM. PATIENT STATING SHE IS FOLLOWING UP WITH NEUROLOGY ON 07/19 IN IS AWAITING FOR A FOLLOW-UP MRI TO BE SCHEDULED. HAS BEEN SMOKING ABOUT 1 PACK OF CIGARETTES DAILY. [facility] Medical History Coronary artery disease Insulin dependent type 2 diabetes mellitus Exposure to rabies Lymphoma Restrictive lung disease secondary to obesity COPD (chronic obstructive pulmonary disease) Nocturnal hypoxemia DRE (obstructive sleep apnea) Cough Nicotine dependence, cigarettes, uncomplicated Allergic rhinitis Morbid obesity Hyperlipidemia GERD (gastroesophageal reflux disease) Tubular adenoma Chronic idiopathic constipation IBS (irritable bowel syndrome) Back pain Depression Surgical History History of total right knee replacement (TKR) History of appendectomy (~1978) History of (~1986) History of hysterectomy (~1995) History of lithotripsy (~2018) History of carpal tunnel surgery of right wrist (~2020) History of colonoscopy History of esophagogastroduodenoscopy (EGD) Family History Mother Diabetes Heart muscle disorder caused by another medical condition Father Diabetes Epilepsy Sister No problems noted. Sister No problems noted. Sister No problems noted. Sister No problems noted. Sister No problems noted. Brother No problems noted. Brother No problems noted. Brother No problems noted. Brother No problems noted. Brother No problems noted. Brother No problems noted. Daughter No problems noted. Daughter No problems noted. Son No problems noted. Son No problems noted. Son No problems noted. Social History Household Members: None Are you a primary childbirth and infant care teacher to a significant other at home: No Do you presently have visiting nurse or other home services: No Alcohol intake: current Alcohol intake frequency: a few times a week Patient Tobacco Use Status: Current everyday Tobacco user Tobacco use type: Cigarette Cigarette Packs Per Day: 1.5 Cigarettes Per Day: 30.0 Years Smoked: (onset 13yo, x 42yrs, max 2ppd, now 1/2ppd - 30PYH) Substance Use Type: Marijuana service: No Current occupational status: disabled Current occupation: rt handed Review of Systems Const All systems reviewed & are unremarkable except as noted in HPI and below Eyes Reports no additional complaints ENT Reports no additional complaints and Reports nasal congestion (Mild intermittent) Card Denies chest pain, Denies irregular heart rhythm and Denies leg edema Resp Reports as per HPI GI Reports constipation Reports no additional complaints Musc Reports back pain Skin/Breast Reports system reviewed and no additional complaints, except as documented Neuro Reports no additional complaints Psych Reports no additional complaints Physical Exam Vital Signs: Last Vital Signs Pulse 73 07/04/24 11:09 BP 104/60 07/04/24 11:09 Pulse Ox 97 07/04/24 11:09 Oxygen Delivery Method Room Air 07/04/24 11:09 BMI result Body Mass Index 40.2 Office Procedures Spirometry Testing Spirometry Comments: Spirometry done in the office, Dr. Churchill has the results results scanned to her chart. 02585- Spirometry Results Reviewed Results Reviewed: SPIROMETRY OBTAINED IN OFFICE FVC 59%, FEV1 59%, FEV1/ FVC 99% PATIENT WITH RESTRICTIVE IN OBSTRUCTIVE LUNG DISEASE MODERATELY SEVERE Assessment & Plan Assessment & Plan (1) DRE (obstructive sleep apnea): Comment: (DRE DIAGNOSED IN 2007, WAS NOT ABLE TO TOLERATE THE CPAP. HAS BEEN USING O2 - 2L at night) CLAIMS THAT SHE USES O2 REGULARLY AND SLEEPS GOOD. Code(s): G47.33 - Obstructive sleep apnea (adult) (pediatric) Category: Medical Plan: CONTINUE USE OF O2 2 L EVERY NIGHT TRY TO LOSE SOME WEIGHT. (2) Nocturnal hypoxemia: Comment: (Nocturnal Hypoxia - part of DRE and sleep related hypoventilation) Code(s): G47.34 - Idiopathic sleep related nonobstructive alveolar hypoventilation Category: Medical Plan: CONTINUE USE OF O2 AT 2 LPM EVERY NIGHT (3) COPD (chronic obstructive pulmonary disease): Comment: (COPD related to Smoking) has remained unchanged, continue to have some cough and shortness of breath on exertion. Continues to smoke and the cough is mainly due to smoking. IS CURRENTLY SMOKING ABOUT 1 PACK PER DAY HAS ONLY BEEN USING ADVAIR INHALER 2 PUFFS IN THE MORNING Code(s): J44.9 - Chronic obstructive pulmonary disease, unspecified Category: Medical Plan: EDUCATED TO USE ADVAIR HFA 115-212 PUFFS TWICE A DAY IN THE MORNING AND EVENING. CONTINUE COMBIVENT RESPIMAT 20-100 MCG 1 PUFF EVERY 6 HOURS NEEDED FOR SHORTNESS OF BREATH (4) Nicotine dependence, cigarettes, uncomplicated: Comment: (current smoker - onset 13yo, x 42yrs, max 2ppd, now 1ppd Code(s): F17.210 - Nicotine dependence, cigarettes, uncomplicated Category: Medical Plan: EDUCATED ON SMOKING CESSATION CONTINUE IN YEARLY LOW-DOSE CHEST CT PROGRAM PRESCRIPTION SENT FOR NICOTINE PATCH (5) Restrictive lung disease secondary to obesity: Comment: Restrictive component is secondary to her morbid obesity. Code(s): J98.4 - Other disorders of lung; E66.9 - Obesity, unspecified Category: Medical Plan: EDUCATED ON WEIGHT LOSS BY WATCHING DIET AND EXERCISE. CONTINUE INJECTIONS OF MOUNJARO WHICH MAY HELP TO LOSE SOME WEIGHT. Orders: Orders AMB Spirometry Testing Today J44.9 - Chronic obstructive pulmonary disease, unspecified Medications: New nicotine 1 patch transdermal Q24H 28 days 28 ea 2RF QUIT SMOKING Coding Level of Care Code Est Pt Level 4 (38473) Diagnoses DRE (obstructive sleep apnea) G47.33 Nocturnal hypoxemia G47.34 COPD (chronic obstructive pulmonary disease) J44.9 Nicotine dependence, cigarettes, uncomplicated F17.210 Restrictive lung disease secondary to obesity J98.4; E66.9 CPT Codes Spirometry - CPT: 06689- Spirometry ([id number])
[2024-07-04 11:09] VITALS: BP 104/60; PULSE 73; O2SAT 97; BMI 40.2
--- OUTSIDE RECORDS SUMMARY | 2024-07-04 12:09 | XMS_ITS | Encounter Summary ---
Author Organization [facility] Address [address] [place] [address] Care Team Providers Care Dry Talc Racker Name Role Phone Name, Kiel BAILEY Primary Care Provider Unavailabl e Name, Kiel BAILEY Primary Care Provider Unavailabl e Philly Vela DO Primary Care Pro vider Unavailable Name, Kiel BAILEY Primary Care Provider Unavailabl e Encounter Details Date Type Department Care Team Description 10/09/2009 Brass Pickler Report Medical Records [address] [place] [address] Maricel Walls NP Social History Tobacco Use [...] filedocumented in this encounter Care Teams Dry Talc Racker Relationship Specialty Start Date End Date Kiel Shaffer MD PCP - General 05/26/09 04/27/15 Kiel Shaffer MD PCP - General Internal Medicine 04/28/15 05/05/15 Philly Vela DO PCP - General Internal Medicine 05/06/15 08/27/15 Kiel Shaffer MD PCP - General Internal Medicine 08/28/15 documented as of this encounter
--- OUTSIDE RECORDS SUMMARY | 2024-07-04 12:09 | XMS_ITS | Clinical Summary ---
Author Organization [facility] Address [address] [place] [address] Care Team Providers Care Digital Product Specialist Name Role Phone Name, Kiel BAILEY Primary Care Provider [phone] Allergies Active Allergy Reactions Criticality Noted Date [...] age to complete this topic Care Teams Digital Product Specialist Relationship Specialty Start Date End Date Name, MD Kiel [address] [facility] [address] [place] [address] PCP - General Internal Medicine 04/17/18
--- OUTSIDE RECORDS SUMMARY | 2024-07-04 12:09 | XMS_ITS | Encounter Summary ---
Author Organization [facility] Address [address] [place] [address] Care Team Providers Care Cleater Name Role Phone Name, Kiel BAILEY Primary Care Provider Unavailabl e Name, Kiel BAILEY Primary Care Provider Unavailabl e Philly Vela DO Primary Care Pro vider Unavailable Name, Kiel BAILEY Primary Care Provider Unavailabl e Encounter Details Date Type Department Care Team Description 10/31/2009 Hospital Medical Records [address] [place] [address] Hever Bush Social History Tobacco Use Types [...] on filedocumented in this encounter Care Teams Cleater Relationship Specialty Start Date End Date Kiel Shaffer MD PCP - General 05/26/09 04/27/15 Kiel Shaffer MD PCP - General Internal Medicine 04/28/15 05/05/15 Philly Vela DO PCP - General Internal Medicine 05/06/15 08/27/15 Kiel Shaffer MD PCP - General Internal Medicine 08/28/15 documented as of this encounter
--- OUTSIDE RECORDS SUMMARY | 2024-07-04 12:09 | XMS_ITS | Encounter Summary ---
Author Organization [employer] Address [address] [facility] 7t [place] [address] Care Team Providers Care Sign Board Erector Name Role Phone Name, Kiel BAILEY Primary Care Provider [phone] Katlyn Rodriguez PharmD Unavailable [phone] Reason for Visit * Reason Comments Med Refill Encounter Details Date Type Department Care Team (Late st Contact Info) Description 09/07/2023 Refill [facility] PEDS [address] [place], [place] [phone] Name, MD Kiel [address] [place] [address] Type 2 diabetes mellitus with other specified [...] Description 07/12/2024 9:30 AM EDT Medication Management [address] [address] PuiaReidKatlyn, PharmD [address] [place] [address] 07/27/2024 10:00 AM EDT Office Visit [address] [address] Name, MD Kiel [address] [place] [address] 08/20/2024 9:30 AM EDT Clinical Support [address] [address] Opal Steiner, MARINA documented as of this [...] documented as of this encounter Care Teams Sign Board Erector Relationship Specialty Start Date End Date Name, MD Kiel [address] [place] [address] PCP - General Family Medicine 07/15/15 Katlyn Rodriguez, AngieD [address] [place] [address] Pharmacist Internal Medicine 10/08/22 Marta Ovalle Lead Massage TherapistChina Decorator 05/25/23 documented as of this encounter
--- OUTSIDE RECORDS SUMMARY | 2024-07-04 12:09 | XMS_ITS | Encounter Summary ---
Author Organization [employer] Address [address] [place] [address] 7t [place] [address] Care Team Providers Care Baby Formula Mixer Name Role Phone Name, Kiel BAILEY Primary Care Provider [phone] Katlyn Rodriguez PharmD Unavailable [phone] Reason for Visit * Reason Comments Med Refill Encounter Details Date Type Department Care Team (Late Contact Info) Description 04/25/2022 Refill [facility] MEDICINE [address] [place] [address] Name, MD Kiel [address] [place] [address] Diabetes mellitus type 2 in obese (CMS/HCC) [...] Description 07/12/2024 9:30 AM EDT Medication Management [address] [address] Kat[place] [address] 07/27/2024 10:00 AM EDT Office Visit [address] [address] Name, [place] [address] 08/20/2024 9:30 AM EDT Clinical Support [address] [address] Opal Steiner RN documented as of this encounter Visit Diagnoses Diagnosis Diabetes mellitus type 2 in obese- Primary Type II or unspecified type diabetes mellitus without mention of complication, not stated as uncontrolled documented in this encounter Care Teams Baby Formula Mixer Relationship Specialty Start Date End Date Name, MD Kiel [address] [place] [address] PCP - General Family Medicine 07/15/15 Katlyn Rodriguez PharmD [address] [place] [address] Pharmacist Internal Medicine 10/08/22 Marta Ovalle Call Circuit WorkerMotorsports Technician 05/25/23 documented as of this encounter
--- OUTSIDE RECORDS SUMMARY | 2024-07-04 12:09 | XMS_ITS | Encounter Summary ---
Author Organization [facility] Address [address] [place] [address] Care Team Providers Care Software Engineer Sales Name Role Phone Name, Kiel BAILEY Primary Care Provider [phone] Encounter Details Date Type Department Care Team Description 09/10/2022 Social Work [facility] On[facility] [address] [place] [address] Adina Archer, [facility] Social History Tobacco Use Types Packs/Day Years [...] on filedocumented in this encounter Care Teams Software Engineer Sales Relationship Specialty Start Date End Date Name, MD Kiel [address] [place] [address] [address] [place] [address] PCP - General Internal Medicine 04/17/18 documented as of this encounter
--- OUTSIDE RECORDS SUMMARY | 2024-07-04 12:09 | XMS_ITS | Encounter Summary ---
Author Organization [employer] Address [address] [place] [address] [address] [place] [address] Care Team Providers Care Surveillance Technician Name Role Phone Name, Kiel BAILEY Primary Care Provider [phone] Katlyn Rodriguez PharmD Unavailable [phone] Reason for Visit * Reason Comments Med Refill Encounter Details Date Type Department Care Team ([facility] Contact Info) Description 02/10/[address] [facility] MED & PEDS [address] [place], [place] [phone] Name, MD Kiel [address] [place] [address] Chronic pain syndrome (Primary Dx) Social History [...] Team ([facility] Contact Info) Description 07/12/2024 9:30 AM EDT Medication Management [facility] MEDICINE [address] [place] [address] Katlyn Rodriguez PharmD [address] [place] [address] 07/27/2024 10:00 AM EDT Office Visit [address] [address] Name, MD Kiel [address] [place] [address] 08/20/2024 9:30 AM EDT Clinical Support [address] [address] Opal Steiner RN documented as of this encounter Visit Diagnoses Diagnosis Chronic pain syndrome- Primary documented in this encounter Care Teams Surveillance Technician Relationship Specialty Start Date End Date Name, MD Kiel [address] [place] [address] PCP - General Family Medicine 07/15/15 Katlyn Rodriguez, AngieD [address] [place] [address] Pharmacist Internal Medicine 10/08/22 Marta Ovalle Optimization SpecialistRaise Miner 05/25/23 documented as of this encounter
--- OUTSIDE RECORDS SUMMARY | 2024-07-04 12:09 | XMS_ITS | Encounter Summary ---
Author Organization [employer] Address [address] [facility] [address] 7t [place] [address] Care Team Providers Care Copy And Print Associate Name Role Phone Name, Kiel BAILEY Primary Care Provider [phone] Katlyn Rodriguez PharmD Unavailable [phone] Encounter Details Date Type Department Care Team ([facility] st Contact Info) Description 05/01/2024 Telephone [facility] MEDICINE [address] [place], [place] [phone] Name, MD Kiel [address] [place] [address] Social History Tobacco Use Types Packs/Day Years [...] Description 07/12/2024 9:30 AM EDT Medication Management [address] [address] Katlyn Rodriguez, PharmD [address] [place] [address] 07/27/2024 10:00 AM EDT Office Visit [address] [address] Name, MD Kiel [address] [place] [address] 08/20/2024 9:30 AM EDT Clinical Support [address] [address] Opal Steiner, RN documented as of this [...] documented as of this encounter Care Teams Copy And Print Associate Relationship Specialty Start Date End Date Name, MD Kiel [address] [place] [address] PCP - General Family Medicine 07/15/15 Puia, Katlyn, PharmD [address] [place] [address] Pharmacist Internal Medicine 10/08/22 Marta Ovalle Grouter HelperWrist Closer 05/25/23 documented as of this encounter
--- OUTSIDE RECORDS SUMMARY | 2024-07-04 12:09 | XMS_ITS | Encounter Summary ---
Author Organization [employer] Address [address] [facility] 7t [place] [address] Care Team Providers Care Narrow Gauge Brakeman Name Role Phone Name, Kiel BAILEY Primary Care Provider [phone] Katlyn Rodriguez PharmD Unavailable [phone] Reason for Visit * Reason Onset Date Comments Reschedule 08/01/2023 Encounter Details Date Type Department Care Team ([facility] st Contact Info) Description 08/01/2023 Telephone [facility]ICINE [address] [place] [address] Name, MD Kiel [address] [place] [address] Reschedule Social History Tobacco Use Types Packs/Day [...] 08/01/2023 9:55 AM EDT Triage call with [place] [employer] Protection Technician [place] [id number] . Pt reports Covid + test this [...] 08/01/2023 9:04 AM EDT Patient cancelled todays MONUMENT SETTER HELPER RV appt today. Pt's MONUMENT SETTER HELPER appt has been rescheduled for chronic pain [...] to triage. * Telephone Encounter - Siena aBe - 08/01/2023 9:00 AM EDT Tc from pt requesting r/s MONUMENT SETTER HELPER appt, stated is sick and suspect is COVID documented in this encounter Plan of Treatment Upcoming Encounters Date Type Department Care Team (Late st Contact Info) Description 07/12/2024 9:30 AM EDT Medication Management [facility] [address] [place] [address] Katlyn Rodriguez, PharmD [address] [place] [address] 07/27/2024 10:00 AM EDT Office Visit [facility] [address] [place] [address] Name, MD Kiel [address] [place] [address] 08/20/2024 9:30 AM EDT Clinical Support [facility] [address] [place] [address] Opal Steiner, RN documented as of this [...] documented as of this encounter Care Teams Narrow Gauge Brakeman Relationship Specialty Start Date End Date Name, MD Kiel [address] [place] [address] PCP - General Family Medicine 07/15/15 Puia, Katlyn, PharmD [address] [place] [address] Pharmacist Internal Medicine 10/08/22 Marta Ovalle Tin FlipperCinder Crane Operator 05/25/23 documented as of this encounter
--- OUTSIDE RECORDS SUMMARY | 2024-07-04 12:09 | XMS_ITS | Encounter Summary ---
Author Organization [employer] Address [address] [facility] 7t [place] [address] Care Team Providers Care Career Technical Counselor Name Role Phone Name, Kiel BAILEY Primary Care Provider [phone] Katlyn Rodriguez PharmD Unavailable [phone] Reason for Visit * Reason Onset Date Comments Medication Problem 08/30/2023 Encounter Details Date Type Department Care Team ([facility] st Contact Info) Description 08/30/2023 Telephone [facility] MEDICINE [address] [place] [address] Name, MD Kiel [address] [place] [address] Medication Problem Social History Tobacco Use Types [...] AM EDT documented as of this encounter Functional Status * Over the past 2 weeks, how often have you been bothered by any of the following problems? Question Answer Date of Assessment Author Patient Health Questionnaire-2 Score 0 08/21 10:30 AM Erika Alonzo * If you checked off any problems on this questionnaire so far, Question Answer Date of Assessment Author How difficult have these problems made it for you to do your work, take care of things at home, or get along with other people? Not difficult at all 09/02/2023 10:30 AM Erika Alonzo * Over the past 2 weeks, how often have you been bothered by any of the following problems? Question Answer Date of Assessment Author Little interest or pleasure in doing things Not at all 09/02/2023 10:30 AM Erika Alonzo Feeling down, depressed, or hopeless Not at all 09/02/2023 10:30 AM Erika Alonzo Trouble falling or staying asleep, or sleeping too much Nearly every day 09/02/2023 10:30 AM Erika Alonzo Feeling tired or having nury le energy Several days 09/02/2023 10:30 AM Erika Alonzo Poor appetite or overeating Not at all 09/02/2023 10 :30 AM Erika Alonzo Feeling bad about yourself - or that you are a failure or have let yourself or your family down Not at all 09/02/2023 10:30 AM Merry Alonzoaya Trouble concentrating on things, such as reading the newspaper or watching television Not at all 09/02/2023 10:30 AM EDT Erika Zacarias Moving or speaking so slowly that other people could have noticed? Or the opposite - being so fidgety or restless that you have been moving around a lot more than usual. Not at all 09/02/2023 10:30 AM EDT Erika Zacarias Thoughts that you would be better off or hurting yourself in some way Not at all 09/02/2023 10:30 AM EDT Erika Zacarias Patient Health Questionnaire -9 Score 4 09/02/2023 10:30 AM EDT Erika Zacarias documented as of this encounter Miscellaneous Notes * Telephone Encounter - Siena Bae - 08/30/2023 8:03 AM EDT Tc from pt calling to inform missed her glucose sensor while walking. documented in this encounter Plan of Treatment Upcoming Encounters Date Type Department Care Team (Late st Contact Info) Description 07/12/2024 9:30 AM EDT Medication Management [address] [address] Katlyn Rodriguez PharmD [address] [place] [address] 07/27/2024 10:00 AM EDT Office Visit [address] [address] Name, MD Kiel [address] [place] [address] 08/20/2024 9:30 AM EDT Clinical Support [address] [address] Opal Steiner, MARINA documented as of this encounter Goals Goal Patient Goal Type Associated Problems Recent Progress Patient-Stated? Author Record your blood pressure once per day Blood Pressure No Katlyn Rodriguez, PharmD Blood Pressure < 140/90 Blood Pressure 81/56(05/08/2 025 9:57 AM EDT) No Puia, Katlyn, [...] documented as of this encounter Care Teams Career Technical Counselor Relationship Specialty Start Date End Date Name, MD Kiel [address] [place] [address] PCP - General Family Medicine 07/15/15 Katlyn Rodriguez, PharmD [address] [place] [address] Pharmacist Internal Medicine 10/08/22 Marta Ovalle Weight Count OperatorCounselor At Law 05/25/23 documented as of this encounter
--- OUTSIDE RECORDS SUMMARY | 2024-07-04 12:09 | XMS_ITS | Encounter Summary ---
Author Organization [employer] Address [address] [facility] 7t [place] [address] Care Team Providers Care Meat Passer Name Role Phone Name, Kiel BAILEY Primary Care Provider [phone] Katlyn Rodriguez PharmD Unavailable [phone] Encounter Details Date Type Department Care Team ([facility] Contact Info) Description 03/12/2022 Orders Only [facility] MED & PEDS [address] [place], [place] [phone] Millie Sawant LPN Social History Tobacco Use [...] Care Team ([facility] Contact Info) Description 07/12/2024 9:30 AM EDT Medication Management [facility] MEDICINE [address] [place], [place] [phone] Katlyn Rodriguez, PharmD [address] [place], [place] [phone] 07/27/2024 10:00 AM EDT Office Visit [address] [address] Name, MD [facility] [place] [address] 08/20/2024 9:30 AM EDT Clinical Support [address] [address] Opal Steiner, MARINA documented as of this encounter Visit Diagnoses Not on filedocumented in this encounter Care Teams Meat Passer Relationship Specialty Start Date End Date Name, [place] [address] PCP - General Family Medicine 07/15/15 Katlyn Rodriguez PharmD [address] [place] [address] Pharmacist Internal Medicine 10/08/22 Marta Ovalle Automobile Brakes BonderSueding Machine Operator 05/25/23 documented as of this encounter
--- OUTSIDE RECORDS SUMMARY | 2024-07-04 12:09 | XMS_ITS | Encounter Summary ---
Author Organization [employer] Address [address] [facility] 7t [place] [address] Care Team Providers Care Dining Car Hop Name Role Phone Name, Kiel BAILEY Primary Care Provider [phone] Katlyn Rodriguez PharmD Unavailable [phone] Reason for Visit * Reason Comments Med Refill Encounter Details Date Type Department Care Team ([facility] st Contact Info) Description 06/27/2023 Refill [facility] MEDICINE 230 [place] [address] AdeniaKatlyn, PharmD [address] [place], [place] [phone] Tobacco use disorder Social History Tobacco Use [...] 07/12/2024 9:30 AM EDT Medication Management [address] [address] Puia, Katlyn, PharmD [address] [place] [address] 07/27/2024 10:00 AM EDT Office Visit [address] [address] Name, MD Kiel [address] [place] [address] 08/20/2024 9:30 AM EDT Clinical Support [address] [address] Opal Steiner, MARINA documented as of this [...] documented as of this encounter Care Teams Dining Car Hop Relationship Specialty Start Date End Date Name, MD Kiel [address] [place] [address] PCP - General Family Medicine 07/15/15 Katlyn Rodriguez, Bin [address] [place] [address] Pharmacist Internal Medicine 10/08/22 Marta Ovalle Floral Designer SalespersonCaterpillar Operator 05/25/23 documented as of this encounter
--- OUTSIDE RECORDS SUMMARY | 2024-07-04 12:09 | XMS_ITS | Encounter Summary ---
Author Organization [employer] Address [address] [place] [address] 7t [place] [address] Care Team Providers Care Frame Sample And Pattern Supervisor Name Role Phone Name, Kiel BAILEY Primary Care Provider [phone] Katlyn Rodriguez PharmD Unavailable [phone] Reason for Visit * Reason Comments Med Refill Encounter Details Date Type Department Care Team (Late st Contact Info) Description 06/28/2022 Refill [facility] MEDICINE [address] [place] [address] Name, MD Kiel [address] [place] [address] Chronic pain syndrome Social History Tobacco Use [...] Date Type Department Care Team ([facility] Contact Info) Description 07/12/2024 9:30 AM EDT Medication Management [facility] MEDICINE [address] [place] [address] Katlyn Rodriguez PharmD [address] [place] [address] 07/27/2024 10:00 AM EDT Office Visit [address] [address] Name, MD Kiel [address] [place] [address] 08/20/2024 9:30 AM EDT Clinical Support [address] [address] Opal Steiner RN documented as of this encounter Visit Diagnoses Diagnosis Chronic pain syndrome documented in this encounter Care Teams Frame Sample And Pattern Supervisor Relationship Specialty Start Date End Date Name, MD Kiel [address] [place] [address] PCP - General Family Medicine 07/15/15 Katlyn Rodirguez, PharmD [address] [place] [address] Pharmacist Internal Medicine 10/08/22 Marta Ovalle Cad Designer DrafterOsteopathic Physician 05/25/23 documented as of this encounter
--- OUTSIDE RECORDS SUMMARY | 2024-07-04 12:09 | XMS_ITS | Encounter Summary ---
Author Organization [employer] Address [address] [place] [address] 7t [place] [address] Care Team Providers Care Hl7 Interface Developer Name Role Phone Name, Kiel BAILEY Primary Care Provider [phone] Katlyn Rodriguez PharmD Unavailable [phone] Encounter Details Date Type Department Care Team ([facility] Contact Info) Description 02/23/2022 Orders Only [facility] 230 [place] [address] Name, MD Kiel 230 [place] [address] Social History Tobacco Use Types Packs/Day Years [...] Date Type Department Care Team ([facility] Contact Info) Description 07/12/2024 9:30 AM EDT Medication Management [facility] MEDICINE [address] [place], [place] [phone] PuiaReidKatlyn, PharmD 230 [place] [address] 07/27/2024 10:00 AM EDT Office Visit [address] [address] Name, [place] [address] 08/20/2024 9:30 AM EDT Clinical Support [address] [address] Opal Steiner, MARINA documented as of this encounter Visit Diagnoses Not on filedocumented in this encounter Care Teams Hl7 Interface Developer Relationship Specialty Start Date End Date Name, MD Kiel [address] [place] [address] PCP - General Family Medicine 07/15/15 Katlyn Rodriguez PharmD [address] [place] [address] Pharmacist Internal Medicine 10/08/22 Marta Ovalle Social Media Sr Strategy ManagerPower Bender Operator 05/25/23 documented as of this encounter
--- OUTSIDE RECORDS SUMMARY | 2024-07-04 12:09 | XMS_ITS | Encounter Summary ---
Author Organization [facility] Address [address] [place] [address] Care Team Providers Care Hog Stomach Preparer Name Role Phone Name, Kiel BAILEY Primary Care Provider Unavailabl e Name, Kiel BAILEY Primary Care Provider Unavailabl e Philly Vela DO Primary Care Pro vider Unavailable Name, Kiel BAILEY Primary Care Provider Unavailabl e Encounter Details Date Type Department Care Team Description 05/29/2009 Parole Agent Report Medical Records [address] [place] [address] Jourdan Irizarry DNP Social History Tobacco Use Types Packs/Day Years Used Date Smoking Tobacco: Never Assessed Sex Assigned at Date Recorded Not on file documented as of this encounter Plan of Treatment Not on file documented as of this encounter Visit Diagnoses Not on filedocumented in this encounter Care Teams Hog Stomach Preparer Relationship Specialty Start Date End Date Kiel Shaffer MD PCP - General 05/26/09 04/27/15 Kiel Shaffer MD PCP - General Internal Medicine 04/28/15 05/05/15 Philly Vela DO PCP - General Internal Medicine 05/06/15 08/27/15 Kiel Shaffer MD PCP - General Internal Medicine 08/28/15 documented as of this encounter
--- OUTSIDE RECORDS SUMMARY | 2024-07-04 12:09 | XMS_ITS | Encounter Summary ---
Author Organization [facility] Address [address] [place] [address] Care Team Providers Care Butadiene Converter Utility Operator Name Role Phone Name, Kiel BAILEY Primary Care Provider Unavailabl e Name, Kiel BAILEY Primary Care Provider Unavailabl e Philly Vela DO Primary Care Pro vider Unavailable Name, Kiel BAILEY Primary Care Provider Unavailabl e Encounter Details Date Type Department Care Team Description 03/24/2012 Transfer Records Medical Records [address] [place] [address] Abstract, Provider Social History Tobacco Use Types [...] on filedocumented in this encounter Care Teams Butadiene Converter Utility Operator Relationship Specialty Start Date End Date Kiel Shaffer MD PCP - General 05/26/09 04/27/15 Kiel Shaffer MD PCP - General Internal Medicine 04/28/15 05/05/15 Philly Vela DO PCP - General Internal Medicine 05/06/15 08/27/15 Kiel Shaffer MD PCP - General Internal Medicine 08/28/15 documented as of this encounter
--- OUTSIDE RECORDS SUMMARY | 2024-07-04 12:09 | XMS_ITS | Encounter Summary ---
Author Organization [facility] Address [address] [place] [address] Care Team Providers Care Flight Engineer Inspector Name Role Phone Name, Kiel BAILEY Primary Care Provider Unavailabl e Name, Kiel BAILEY Primary Care Provider Unavailabl e Philly Vela DO Primary Care Pro vider Unavailable Name, Kiel BAILEY Primary Care Provider Unavailabl e Encounter Details Date Type Department Care Team Description 11/25/2011 Chemist Physical Report Medical Records [address] [place] [address] Mohini Ellis NP Social History Tobacco Use [...] on filedocumented in this encounter Care Teams Flight Engineer Inspector Relationship Specialty Start Date End Date Kiel Shaffer MD PCP - General 05/26/09 04/27/15 Kiel Shaffer MD PCP - General Internal Medicine 04/28/15 05/05/15 Philly Vela DO PCP - General Internal Medicine 05/06/15 08/27/15 Kiel Shaffer MD PCP - General Internal Medicine 08/28/15 documented as of this encounter
--- OUTSIDE RECORDS SUMMARY | 2024-07-04 12:09 | XMS_ITS | Encounter Summary ---
Author Organization [facility] Address [address] [place] [address] Care Team Providers Care Medical Billing And Coding Specialist Name Role Phone Name, Kiel BAILEY Primary Care Provider Unavailabl e Name, Kiel BAILEY Primary Care Provider Unavailabl e Philly Vela DO Primary Care Pro vider Unavailable Name, Kiel BAILEY Primary Care Provider Unavailabl e Encounter Details Date Type Department Care Team Description 03/16/2012 Release of Information Medical Records [address] [place] [address] Abstract, Provider Social History Tobacco Use Types [...] filedocumented in this encounter Care Teams Medical Billing And Coding Specialist Relationship Specialty Start Date End Date Kiel Shaffer MD PCP - General 05/26/09 04/27/15 Kiel Shaffer MD PCP - General Internal Medicine 04/28/15 05/05/15 Philly Vela DO PCP - General Internal Medicine 05/06/15 08/27/15 Kiel Shaffer MD PCP - General Internal Medicine 08/28/15 documented as of this encounter
--- OUTSIDE RECORDS SUMMARY | 2024-07-04 12:09 | XMS_ITS | Encounter Summary ---
Author Organization [facility] Address [address] [place] [address] Care Team Providers Care Bone Glue Maker Name Role Phone Name, Kiel BAILEY Primary Care Provider Unavailabl e Name, Kiel BAILEY Primary Care Provider Unavailabl e Philly Vela DO Primary Care Pro vider Unavailable Name, Kiel BAILEY Primary Care Provider Unavailabl e Encounter Details Date Type Department Care Team Description 07/10/2009 Supervisor Floor Assembly Report Medical Records [address] [place] [address] Maricel Walls NP Social History Tobacco Use [...] on filedocumented in this encounter Care Teams Bone Glue Maker Relationship Specialty Start Date End Date Kiel Shaffer MD PCP - General 05/26/09 04/27/15 Kiel Shaffer MD PCP - General Internal Medicine 04/28/15 05/05/15 Philly Vela DO PCP - General Internal Medicine 05/06/15 08/27/15 Kiel Shaffer MD PCP - General Internal Medicine 08/28/15 documented as of this encounter
--- OUTSIDE RECORDS SUMMARY | 2024-07-04 12:09 | XMS_ITS | Encounter Summary ---
Author Organization [employer] Address [address] [facility] 7t [place] [address] Care Team Providers Care Manager Semiconductor Name Role Phone Name, Kiel BAILEY Primary Care Provider Katlyn Rodriguez PharmD Unavailable [phone] Reason for Visit * Reason Comments Med Refill Encounter Details Date Type Department Care Team ([facility] st Contact Info) Description 04/15/2023 Refill [facility] MEDICINE [address] [place] [address] Yaneth Restrepo FNP [address] [place] [address] Diabetes mellitus type 2 in obese (CMS/HCC) [...] Description 07/12/2024 9:30 AM EDT Medication Management [address] [address] Puia, Katlyn, PharmD [address] [place] [address] 07/27/2024 10:00 AM EDT Office Visit [address] [address] Name, MD Kiel [address] [place] [address] 08/20/2024 9:30 AM EDT Clinical Support [address] [address] Opal Steiner RN documented as of this [...] as of this encounter Care Teams Manager Semiconductor Relationship Specialty Start Date End Date Name, MD Kiel [address] [place] [address] PCP - General Family Medicine 07/15/15 Katlyn Rodriguez PharmD [address] [place] [address] Pharmacist Internal Medicine 10/08/22 Marta Ovalle Greenskeeper HeadMiddle School Science Teacher 05/25/23 documented as of this encounter
--- OUTSIDE RECORDS SUMMARY | 2024-07-04 12:09 | XMS_ITS | Encounter Summary ---
Author Organization [facility] Address [address] [place] [address] Care Team Providers Care Business Test Analyst Name Role Phone Name, Kiel BAILEY Primary Care Provider Unavailabl e Name, Kiel BAILEY Primary Care Provider Unavailabl e Philly Vela DO Primary Care Pro vider Unavailable Name, Kiel BAILEY Primary Care Provider Unavailabl e Encounter Details Date Type Department Care Team Description 11/25/2011 Release of Information Medical Records [address] [place] [address] Abstract, Provider Social History Tobacco Use Types [...] on filedocumented in this encounter Care Teams Business Test Analyst Relationship Specialty Start Date End Date Kiel Shaffer MD PCP - General 05/26/09 04/27/15 Kiel Shaffer MD PCP - General Internal Medicine 04/28/15 05/05/15 Philly Vela DO PCP - General Internal Medicine 05/06/15 08/27/15 Kiel Shaffer MD PCP - General Internal Medicine 08/28/15 documented as of this encounter
--- OUTSIDE RECORDS SUMMARY | 2024-07-04 12:09 | XMS_ITS | Encounter Summary ---
Author Organization [facility] Address [address] [place] [address] Care Team Providers Care Refining Supervisor Name Role Phone Name, Kiel BAILEY Primary Care Provider Unavailabl e Name, Kiel BAILEY Primary Care Provider Unavailabl e Philly Vela DO Primary Care Pro vider Unavailable Name, Kiel ABILEY Primary Care Provider Unavailabl e Encounter Details Date Type Department Care Team Description 11/24/2011 Real Estate Rep Report Medical Records [address] [place] [address] Geovani Nielsen Social History Tobacco Use Types [...] on filedocumented in this encounter Care Teams Refining Supervisor Relationship Specialty Start Date End Date Kiel Shaffer MD PCP - General 05/26/09 04/27/15 Kiel Shaffer MD PCP - General Internal Medicine 04/28/15 05/05/15 Philly Vela DO PCP - General Internal Medicine 05/06/15 08/27/15 Kiel Shaffer MD PCP - General Internal Medicine 08/28/15 documented as of this encounter
--- OUTSIDE RECORDS SUMMARY | 2024-07-04 12:10 | XMS_ITS | Clinical Summary ---
Author Organization [facility] Address [address] [place] [address] Care Team Providers Care Senior Commercial Loan Officer Name Role Phone Name, Kiel BAILEY [...] just unsure what to do Educational Resources Citizen Of [place] Diabetes Association (www.diabetes.org) Centers for Disease Control [...] leg 09/21 Overview: The patient follows with [facility] and is treated with [...] Hx Relation Name Status Comments Brother 1 [place] Brother 2 Alive 6 brothers are diabetic [...] 05/10/2014, Additional history exists DIABETES/HEART DISEASE: NESHA BENÍTEZ CHOLESTEROL (LDL) 05/11/2015 05/10/2014, 10/10/2013, 05/21/2013, Additional [...] (2 - Td or Tdap) 10/25/2021 10/26/2011 BMI CHECK/ADVISE 02/22/2024 12/30/2014, , 11/27/2014, Additional history exists DEPRESSION SCREENING/FOLLOWUP 02/22/2024, 01/24/2014, 07/28/2012, Additional history exists SOCIAL NEEDS SCREENING 02/22/2024 INFLUENZA (Season Ended) 2024 015, 11/02/2012, 10/26/2011, Additional history exists PNEUMOCOCCAL VACCINE FOR HIG H RISK PATIENTS (#2) 2030 02/05/2018, 10/03/2013 HEPATITIS C SCREENING Completed 10/10/2013 Care Teams Senior Commercial Loan Officer Relationship Specialty Start Date End Date Name, MD Kiel PCP - General Internal Medicine 08/28/15
--- OUTSIDE RECORDS SUMMARY | 2024-07-04 12:10 | XMS_ITS | Encounter Summary ---
Author Organization [facility] Address [address] [place] [address] Care Team Providers Care Materials Management Supervisor Name Role Phone Name, Kiel BAILEY Primary Care Provider Unavailabl e Encounter Details Date Type Department Care Team Description 07/15/2018 Hospital Medical Records [address] [place] [address] Ramez Santacruz MD [address] [place] [phone] Social History Tobacco Use Types Packs/Day Years [...] on filedocumented in this encounter Care Teams Materials Management Supervisor Relationship Specialty Start Date End Date Name, MD Kiel PCP - General Internal Medicine 08/28/15 documented as of this encounter
--- OUTSIDE RECORDS SUMMARY | 2024-07-04 12:10 | XMS_ITS | Encounter Summary ---
Author Organization [employer] Address [address] [facility] 7t [place] [address] Care Team Providers Care Dye Lab Technician Name Role Phone Name, Kiel BAILEY Primary Care Provider [phone] Katlyn Rodriguez PharmD Unavailable [phone] Reason for Visit * Reason Comments Med Refill Encounter Details Date Type Department Care Team ([facility] st Contact Info) Description 06/08/2024 Refill [facility] [address] [place], [place] [phone] Name, MD Kiel [address] [place] [address] Chronic pain syndrome Social History Tobacco Use [...] Description 07/12/2024 9:30 AM EDT Medication Management [address] [address] PuiaReidKatlyn, PharmD [address] [place] [address] 07/27/2024 10:00 AM EDT Office Visit [address] [address] Name, MD Kiel [address] [place] [address] 08/20/2024 9:30 AM EDT Clinical Support [address] [address] Opal Steiner RN documented as of this [...] documented as of this encounter Care Teams Dye Lab Technician Relationship Specialty Start Date End Date Name, MD Kiel [address] [place] [address] PCP - General Family Medicine 07/15/15 Katlyn Rodriguez, PharmD [address] [place] [address] Pharmacist Internal Medicine 10/08/22 Marta Ovalle Catering AssociateChanneler Insole 05/25/23 documented as of this encounter
--- OUTSIDE RECORDS SUMMARY | 2024-07-04 12:10 | XMS_ITS | Encounter Summary ---
Author Organization [facility] Address [address] [place] [address] Care Team Providers Care Sub Acute Care Nurse Name Role Phone Philly Vela DO Primary Care Pro vider Unavailable NameKiel MD Primary Care Provider Unavailabl e Encounter Details Date Type Department Care Team Description 08/05/2015 Release of Information Medical Records [address] [place] [address] Abstract, Provider Social History Tobacco Use Types [...] on filedocumented in this encounter Care Teams Sub Acute Care Nurse Relationship Specialty Start Date End Date Philly Vela DO PCP - General Internal Medicine 05/06/15 08/27/15 Kiel Shaffer MD PCP - General Internal Medicine 08/28/15 documented as of this encounter
--- OUTSIDE RECORDS SUMMARY | 2024-07-04 12:10 | XMS_ITS | Encounter Summary ---
Author Organization [facility] Address [address] [place] [address] Care Team Providers Care Program Analyst Name Role Phone Name, Kiel BAILEY Primary Care Provider Unavailabl e Encounter Details Date Type Department Care Team Description 01/07/2021 Hospital Medical Records [address] [place] [id number] [place] [address] Social History Tobacco Use Types Packs/Day Years [...] Procedure Name Priority Date/Time Associated Diagnosis Comments OUTSIDE LAB Routine 01/08/2021 OUTSIDE LAB Routine 01/08/2021 OUTSIDE EKG Routine 01/07/2021 OUTSIDE PLAIN FILM Routine 01/07/2021 documented in this encounter Results * OUTSIDE LAB (01/08/2021) Provider Default LAB * OUTSIDE LAB (01/08/2021) Provider Default LAB * OUTSIDE PLAIN FILM (01/07/2021) Provider Default RADIOLOGY * OUTSIDE EKG (01/07/2021) Provider Default CARDIOLOGY documented in this encounter Visit Diagnoses Not on filedocumented in this encounter Care Teams Program Analyst Relationship Specialty Start Date End Date Name, MD Kiel PCP - General Internal Medicine 08/28/15 documented as of this encounter
--- OUTSIDE RECORDS SUMMARY | 2024-07-04 12:10 | XMS_ITS | Encounter Summary ---
Author Organization [facility] Address [address] [place] [address] Care Team Providers Care Microcomputer Support Specialist Name Role Phone Name, Kiel BAILYE Primary Care Provider Unavailabl e Name, Kiel BAILEY Primary Care Provider Unavailabl e Philly Vela DO Primary Care Pro vider Unavailable Name, Kiel BAILEY Primary Care Provider Unavailabl e Encounter Details Date Type Department Care Team Description 05/04/2011 Hvac Manager Report Medical Records [address] [place] [address] Mohini Ellis NP Social History Tobacco Use [...] on filedocumented in this encounter Care Teams Microcomputer Support Specialist Relationship Specialty Start Date End Date Kiel Shaffer MD PCP - General 05/26/09 04/27/15 Kiel Shaffer MD PCP - General Internal Medicine 04/28/15 05/05/15 Philly Vela DO PCP - General Internal Medicine 05/06/15 08/27/15 Kiel Shaffer MD PCP - General Internal Medicine 08/28/15 documented as of this encounter
--- OUTSIDE RECORDS SUMMARY | 2024-07-04 12:10 | XMS_ITS | Encounter Summary ---
Author Organization [facility] Address [address] [place] [address] Care Team Providers Care Postmaster Relief Name Role Phone Name, Kiel BAILEY Primary Care Provider Unavailabl e Name, Kiel BAILEY Primary Care Provider Unavailabl e Philly Vela DO Primary Care Pro vider Unavailable Name, Kiel BAILEY Primary Care Provider Unavailabl e Encounter Details Date Type Department Care Team Description 03/30/2011 Beekeeper Farmer Report Medical Records [address] [place] [address] Mohini Ellis NP Social History Tobacco Use [...] on filedocumented in this encounter Care Teams Postmaster Relief Relationship Specialty Start Date End Date Kiel Shaffer MD PCP - General 05/26/09 04/27/15 Kiel Shaffer MD PCP - General Internal Medicine 04/28/15 05/05/15 Philly Vela DO PCP - General Internal Medicine 05/06/15 08/27/15 Kiel Shaffer MD PCP - General Internal Medicine 08/28/15 documented as of this encounter
--- OUTSIDE RECORDS SUMMARY | 2024-07-04 12:10 | XMS_ITS | Encounter Summary ---
Author Organization [facility] Address [address] [place] [address] Care Team Providers Care Doggy Daycare Activities Director Name Role Phone Name, Kiel BAILEY Primary Care Provider Unavailabl e Name, Kiel BAILEY Primary Care Provider Unavailabl e Philly Vela DO Primary Care Pro vider Unavailable Name, Kiel BAILEY Primary Care Provider Unavailabl e Encounter Details Date Type Department Care Team Description 10/30/2011 Hospital Medical Records [address] [place] [address] Nadine Laboy Social History Tobacco Use Types Packs/Day Years [...] on filedocumented in this encounter Care Teams Doggy Daycare Activities Director Relationship Specialty Start Date End Date Kiel Shaffer MD PCP - General 05/26/09 04/27/15 Kiel Shaffer MD PCP - General Internal Medicine 04/28/15 05/05/15 Philly Vela DO PCP - General Internal Medicine 05/06/15 08/27/15 Kiel Shaffer MD PCP - General Internal Medicine 08/28/15 documented as of this encounter
--- OUTSIDE RECORDS SUMMARY | 2024-07-04 12:10 | XMS_ITS | Encounter Summary ---
[facility] Address [address] [place] [address] Care Team Providers Care Shipping Receiving Clerk Name Role Phone Name, Kiel BAILEY Primary Care Provider Unavailabl e Name, Kiel BAILEY Primary Care Provider Unavailabl e Philly Vela DO Primary Care Pro vider Unavailable Name, Kile BAILEY Primary Care Provider Unavailabl e Encounter Details Date Type Department Care Team Description 12/03/2014 Hospital Medical Records [address] [place] [address] Rashad Messina MD Social History Tobacco Use [...] on filedocumented in this encounter Care Teams Shipping Receiving Clerk Relationship Specialty Start Date End Date Kiel Shaffer MD PCP - General 05/26/09 04/27/15 Kiel Shaffer MD PCP - General Internal Medicine 04/28/15 05/05/15 Philly Vela DO PCP - General Internal Medicine 05/06/15 08/27/15 Kiel Shaffer MD PCP - General Internal Medicine 08/28/15 documented as of this encounter
--- OUTSIDE RECORDS SUMMARY | 2024-07-04 12:10 | XMS_ITS | Encounter Summary ---
Author Organization [facility] Address [address] [place] [address] Care Team Providers Care Template Clerk Name Role Phone NameKiel MD Primary Care Provider Unavailabl e Encounter Details Date Type Department Care Team Description 04/03/2016 Release of Information Medical Records [address] [place] [id number] Abstract, Provider Social History Tobacco Use Types [...] on filedocumented in this encounter Care Teams Template Clerk Relationship Specialty Start Date End Date Name, MD Kiel PCP - General Internal Medicine 08/28/15 documented as of this encounter
--- OUTSIDE RECORDS SUMMARY | 2024-07-04 12:10 | XMS_ITS | Encounter Summary ---
[facility] Organization [facility] Address [address] [place] [address] Care Team Providers Care Tube Handler Name Role Phone Name, Kiel BAILEY Primary Care Provider Unavailabl e Name, Kiel BAILEY Primary Care Provider Unavailabl e Philly Vela DO Primary Care Pro vider Unavailable Name, Kiel BAILEY Primary Care Provider Unavailabl e Encounter Details Date Type Department Care Team Description 01/31/2014 Home Health Certification Medical Records [address] [place] [address] Social History Tobacco Use Types Packs/Day Years [...] on filedocumented in this encounter Care Teams Tube Handler Relationship Specialty Start Date End Date Kiel Shaffer MD PCP - General 05/26/09 04/27/15 Kiel Shaffer MD PCP - General Internal Medicine 04/28/15 05/05/15 Philly Vela DO PCP - General Internal Medicine 05/06/15 08/27/15 Kiel Shaffer MD PCP - General Internal Medicine 08/28/15 documented as of this encounter
--- OUTSIDE RECORDS SUMMARY | 2024-07-04 12:10 | XMS_ITS | Encounter Summary ---
[facility] Organization [facility] Address [address] [place] [address] Care Team Providers Care Weaver Wire Loom Name Role Phone Name, Kiel BAILEY Primary Care Provider Unavailabl e Name, Kiel BAILEY Primary Care Provider Unavailabl e Philly Vela DO Primary Care Pro vider Unavailable Name, Kiel BAILEY Primary Care Provider Unavailabl e Encounter Details Date Type Department Care Team Description 03/26/2011 Eye Clinic Supervisor Report Medical Records [address] [place] [address] Fei Armstrong Social History Tobacco Use Types [...] on filedocumented in this encounter Care Teams Weaver Wire Loom Relationship Specialty Start Date End Date Deena, MD Kiel PCP - General 05/26/09 04/27/15 Kiel Shaffer MD PCP - General Internal Medicine 04/28/15 05/05/15 Philly Vela DO PCP - General Internal Medicine 05/06/15 08/27/15 Kiel Shaffer MD PCP - General Internal Medicine 08/28/15 documented as of this encounter
--- OUTSIDE RECORDS SUMMARY | 2024-07-04 12:10 | XMS_ITS | Encounter Summary ---
Author Organization [facility] Address [address] [place] [address] Care Team Providers Care Sprinkler Truck Driver Name Role Phone Name, Kiel BAILEY Primary Care Provider Unavailabl e Name, Kiel BAILEY Primary Care Provider Unavailabl e Philly Vela DO Primary Care Pro vider Unavailable Name, Kiel BAILEY Primary Care Provider Unavailabl e Encounter Details Date Type Department Care Team Description 01/04/2011 Early Head Start Teacher Report Medical Records [address] [place] [address] Shon Blanca Social History Tobacco Use Types [...] on filedocumented in this encounter Care Teams Sprinkler Truck Driver Relationship Specialty Start Date End Date Deena, MD Kiel PCP - General 05/26/09 04/27/15 Kiel Shaffer MD PCP - General Internal Medicine 04/28/15 05/05/15 Philly Vela DO PCP - General Internal Medicine 05/06/15 08/27/15 Kiel Shaffer MD PCP - General Internal Medicine 08/28/15 documented as of this encounter
--- OUTSIDE RECORDS SUMMARY | 2024-07-04 12:10 | XMS_ITS | Encounter Summary ---
Author Organization [employer] Address [address] [place] [address] 7t [place] [address] Care Team Providers Care Rn Maternity Name Role Phone Name, Kiel BAILEY Primary Care Provider [phone] Katlyn Rodriguez PharmD Unavailable [phone] Encounter Details Date Type Department Care Team (Late Contact Info) Description 07/01/2022 Abstract [facility] MEDICINE [address] [place] [phone] Name, MD Kiel [address] [place] [address] Social History Tobacco Use Types Packs/Day Years [...] Team ([facility] Contact Info) Description 07/12/2024 9:30 AM EDT Medication Management [facility] MEDICINE [address] [place] [phone] Katlyn Rodriguez PharmD [address] [place] [phone] 07/27/2024 10:00 AM EDT Office Visit [address] [address] Name, MD Kiel [address] [place] [address] 08/20/2024 9:30 AM EDT Clinical Support [address] [address] Opal Steiner, MARINA documented as of this encounter Visit Diagnoses Not on filedocumented in this encounter Care Teams Rn Maternity Relationship Specialty Start Date End Date Name, MD Kiel [address] [place] [address] PCP - General Family Medicine 07/15/15 Katlyn Rodriguez, PharmD [address] [place] [phone] Pharmacist Internal Medicine 10/08/22 Marta Ovalle Assistant ForemanSilver Chaser 05/25/23 documented as of this encounter
--- OUTSIDE RECORDS SUMMARY | 2024-07-04 12:10 | XMS_ITS | Encounter Summary ---
Author Organization [employer] Address [address] [facility] 7t [place] [address] Care Team Providers Care Supervisor Bonding Name Role Phone Name, Kiel BAILEY Primary Care Provider [phone] Katlyn Rodriguez PharmD Unavailable [phone] Encounter Details Date Type Department Care Team (Late st Contact Info) Description 08/26/2022 Orders Only [facility] MEDICINE [address] [place] [address] [phone] Leia Gonzales LPN Social History Tobacco Use [...] Medication Management [facility] MEDICINE [address] [place] [address] [phone] [place] [address] 07/27/2024 10:00 AM EDT Office Visit [address] [address] Name, MD Kiel [address] [place] [address] 08/20/2024 9:30 AM EDT Clinical Support [address] [address] Opal Steiner RN documented as of this encounter Visit Diagnoses Not on filedocumented in this encounter Additional Health Concerns Assessment Noted Time PHQ-9 Depression Total Score: 7 07/15/19 23 2:39 PM EDT documented as of this encounter Care Teams Supervisor Bonding Relationship Specialty Start Date End Date Name, MD Kiel [address] [place] [address] PCP - General Family Medicine 07/15/15 Katlyn Rodriguez, AngieD [address] [place] [address] Pharmacist Internal Medicine 10/08/22 Marta Ovalle Department Head Junior CollegePorcelain Technician 05/25/23 documented as of this encounter
--- OUTSIDE RECORDS SUMMARY | 2024-07-04 12:10 | XMS_ITS | Encounter Summary ---
[facility] Organization [facility] Address [address] [place] [address] Care Team Providers Care Paper Reclaiming Machine Operator Name Role Phone Name, Kiel BAILEY Primary Care Provider Unavailabl e Name, Kiel BAILEY Primary Care Provider Unavailabl e Philly Vela DO Primary Care Pro vider Unavailable Name, Kiel BAILEY Primary Care Provider Unavailabl e Encounter Details Date Type Department Care Team Description 01/14/2011 Hospital Medical Records [address] [place] [address] Ania Reid Social History Tobacco Use Types [...] filedocumented in this encounter Care Teams Paper Reclaiming Machine Operator Relationship Specialty Start Date End Date Kiel Shaffer MD PCP - General 05/26/09 04/27/15 Kiel Shaffer MD PCP - General Internal Medicine 04/28/15 05/05/15 Philly Vela DO PCP - General Internal Medicine 05/06/15 08/27/15 Kiel Shaffer MD PCP - General Internal Medicine 08/28/15 documented as of this encounter
--- OUTSIDE RECORDS SUMMARY | 2024-07-04 12:10 | XMS_ITS | Encounter Summary ---
Author Organization [facility] Address [address] [place] [address] Care Team Providers Care Sociology Instructor Name Role Phone Name, Kiel BAILEY Primary Care Provider [phone] Encounter Details Date Type Department Care Team (Late Contact Info) Description 11/24/2023 10:30 AM EDT Hospital Encounter TH HISTORIC ENCOUNTERS EASTERN CONVERSION ONLY Geoffrey-Art Vitale MD [address] [place] [phone] Social History Tobacco Use Types Packs/Day Years [...] 9:45 AM EDT Office Visit Orthopedic Surgery [facility] [address] [facility] [address] [place] [phone] Wesley Garcia, DPM 175 [facility] [address] [place] [address] documented as of this encounter Visit Diagnoses Not on filedocumented in this encounter Additional Health Concerns Infection Onset Date Last Indicated Resolved Time Respiratory Rule-Out 02/05/2024 02/05/2024 024 8:09 AM EST COVID-19 Rule-Out 02/05/2024 02/05/2024 02/05/2024 8:09 AM EST documented as of this encounter Care Teams Sociology Instructor Relationship Specialty Start Date End Date Name, MD Kiel [address] [place], [place] PCP - General Internal Medicine 08/28/15 documented as of this encounter
--- OUTSIDE RECORDS SUMMARY | 2024-07-04 12:10 | XMS_ITS | Encounter Summary ---
Author Organization [employer] Address [address] [place] [address] 7t [place] [address] Care Team Providers Care Dispute Resolution Specialist Name Role Phone Name, Kiel BAILEY Primary Care Provider [phone] Katlyn Rodriguez PharmD Unavailable [phone] Encounter Details Date Type Department Care Team (Late Contact Info) Description 07/01/2022 Abstract [facility] MEDICINE [address] [place] [address] Name, MD Kiel [address] [place] [address] Social History Tobacco Use Types Packs/Day Years [...] Team ([facility] Contact Info) Description 07/12/2024 9:30 AM EDT Medication Management [facility] MEDICINE [address] [place] [address] Katlyn Rodriguez PharmD [address] [place] [address] 07/27/2024 10:00 AM EDT Office Visit [address] [phone] Name, MD iKel [address] [place] [address] 08/20/2024 9:30 AM EDT Clinical Support [address] [phone] Opal Steiner, MARINA documented as of this encounter Procedures Procedure Name Priority Date/Time Associated Diagnosis Comments COLONOSCOPY Routine 07/01/2022 4:37 PM EDT documented in this encounter Results * Colonoscopy (07/01/2022 4:37 PM EDT) Colonoscopy Normal Normal Narrative Emely Devine - 07/01/2022 4:37 PM EDT Recommended 5 year follow up ([facility]) us Historical Provider HEALTH MAINTENANCE Final Result documented in this encounter Visit Diagnoses Not on filedocumented in this encounter Care Teams Dispute Resolution Specialist Relationship Specialty Start Date End Date Name, MD Kiel [address] [place] [address] PCP - General Family Medicine 07/15/15 Katlyn Rodriguez, PharmD [address] [place] [address] Pharmacist Internal Medicine 10/08/22 Marta Ovalle Lifts And Cranes InspectorCoal Loader 05/25/23 documented as of this encounter
--- OUTSIDE RECORDS SUMMARY | 2024-07-04 12:10 | XMS_ITS | Clinical Summary ---
Author Organization [address] [facility] Address [address] [place] [address] Phone Care Team Providers Care Conservation Science Officer Name Role Phone Name, Kiel BAILEY Primary Care Provider [phone] Allergies Active Allergy Reactions Criticality Noted Date [...] Problem Noted Date Diagnosed Date COPD exacerbation ([facility] V24, [facility] V28) Abnormal nuclear stress test 11/06/2014 Rib fracture 12/24/2013 Overview (12/12/2023): Non displaced, probable froacture on the right ninth and tenth Abdominal pain 08/15/2013 Lipoma of abdominal wall 11/02/2011 Visual field defect 03/29/2011 Cocaine abuse, episodic use ([facility] V24, [facility] V28) 06/17/2010 Low back pain radiating to left leg 10/08/2009 Overview (12/12/2023): The patient follows with [facility] and is treated with injections to the LS. Asthmatic bronchitis , chronic ([facility] V24, [facility] V28) 07/07/2009 Overview (12/12/2023): Severe and worse in the spring. Last hospitalazion in May and 3 ER visits Hospital 08/02 Known medical problems 06/05/2009 Tobacco use disorder 06/05/2009 Hypertriglyceridemia 06/05/2009 Morbid obesity ([facility] V24, [facility] V28) 2009 Overview (12/12/2023): BMI 48.37 on [...] TOTAL HYSTERECTOMY WITH BSO; COMMENT: for bleeding, [facility] Medical History Medical History Date Comments Type II or unspecified type diabetes mellitus with unspecified complication, not stated as uncontrolled DX:Type II or unspecified t ype diabetes mellitus with unspecified complication, not stated as uncontrolled Unspecified essential hypertension DX:Unspecified essential hypertension Tobacco abuse DX:Tobacco abuse RAD (reactive airway disease) DX :RAD (reactive airway disease) Morbid obesity ([facility] V24, [facility] V28) DX:Morbid obesity (HCC) Asthmatic bronchitis , chron ic ([facility] V24, [facility] V28) 07/07/2009 DX:Asthmatic bronchitis , ch ronic ([facility]) Hypertriglyceridemia 06/05/2009 DX:Hypertri glyceridemia Rib fracture 12/24/2013 DX:Rib fracture Family History Medical History Relation Name Comments Blindness Brother 1 Breast cancer Maternal Grandmother Cataracts Maternal Grandmother Blindness Mother Glaucoma Neg Hx Macular degeneration Neg Hx Strabismus Neg Hx Relation Name Status Comments Brother 1 Brother 2 MN Brother 3 Alive 6 brothers are diabetic [...] AM EDT Office Visit Orthopedic Surgery - [place] [address] [phone] Wesley Garcia, DPM [address] [address] Health Maintenance Due Date Last Done Comments [...] mmol/L LAB CHEMISTRY METHOD 02/06/2024 3:36 AM [facility] Potassium 4.1 3.5 - 5.5 mmol/L LAB CHEMISTRY METHOD 02/06/2024 3:36 AM [facility] Chloride 104 96 - 110 mmol/L LAB CHEMISTRY METHOD 02/06/2024 3:36 AM [facility] CO2 23 21 - 32 mmol/L LAB CHEMISTRY METHOD 02/06/2024 3:36 AM [facility] Anion Gap 9 3 - 11 LAB CHEMISTRY METHOD 02/06/2024 3:36 AM [facility] Glucose 244(H) 70 - 100 mg/dL LAB CHEMISTRY METHOD 02/06/2024 3:36 AM [facility] BUN 17 5 - 25 mg/dL LAB CHEMISTRY METHOD 02/06/2024 3:36 AM [facility] Creatinine 0.71 0.50 - 1.10 mg/dL LAB CHEMISTRY METHOD 02/06/2024 3:36 AM [facility] eGFR 99 >=60 mL/min/1. 73m2 LAB CHEMISTRY METHOD 02/06/2024 3:36 AM [facility] Comment:Calculation based on the??Chronic Kidney Disease Epidemiology Collaboration (CKD-EPI) equation refit??without adjustment for race. BUN/Creatinine Ratio 23.9 LAB CHEMISTRY METHOD 02/06/2024 3:36 AM [facility] Calcium 9.3 8.5 - 10.5 mg/dL LAB CHEMISTRY METHOD 02/06/2024 3:36 AM [facility] Blood Venous blood specimen / Unknown Venipuncture / Unknown 02/06/2024 2:59 AM EST 02/06/2024 3:13 AM EST us Cindy SEGURA LAB BLOOD ORDERABLES Final R esult [facility] [address] [place] [address], * (ABNORMAL) Hemoglobin A1c (11/20/2014) Pathologist [facility] Hemoglobin A1C 7.5(A) 4.0 - 6.0 % Blood Venous blood specimen / Unknown Historical Provider LAB BLOOD ORDERABLES Alis l Result * Urine Albumin Creatinine Ratio (05/10/2014) Pathologist [facility] Urine Albumin Creatinine Ratio abstracted Historical Provider HEALTH MAINTENANCE Final Result * (ABNORMAL) Lipid panel (05/10/2014) Pathologist [facility] LDL/HDL Ratio 4 0 - 4 Triglycerides [...] currently active code status orders. Care Teams Conservation Science Officer Relationship Specialty Start Date End Date Name, MD Kiel [address] [place], [place] PCP - General Internal Medicine 08/28/15
--- OUTSIDE RECORDS SUMMARY | 2024-07-04 12:10 | XMS_ITS | Encounter Summary ---
Author Organization [facility] Address [address] [place] [address] Care Team Providers Care Barber Shop Manager Name Role Phone Name, Kiel BAILEY Primary Care Provider [phone] Encounter Details Date Type Department Care Team (Late st Contact Info) Description 11/24/2023 9:53 AM EDT Hospital Encounter TH HISTORIC ENCOUNTERS EASTERN CONVERSION ONLY Geoffrey-Art Vitale MD [address] [place] [address] Social History Tobacco Use Types [...] 2:17 PM Encounter Date: 11/24/2023 Status: Signed Doctor Of Veterinary Medicine: Art Davis MD (Physician) CHIEF COMPLAINT: Chief Complaint Patient presents with ? Follow-up Diffuse large B-cell lymphoma Stage III Completed 6 cycles of R-CHOP in July 23, 2018 IDENTIFIER:Sarita Puga is a 58 y.o. female. HPI: The patient returns for follow up of Large B-cell lymphoma. Here with her daughter , who is citizen of [place] to armenian language assistant Patient reports that she has [...] her daughter and girlfriend. As Faroese to [place]o language assistant assisted with the discussion. She [...] AM EDT Office Visit Orthopedic Surgery - [place] [address] [phone] Wesley Garcia DPM [address] [address] documented as of this encounter Procedures Procedure [...] documented as of this encounter Care Teams Barber Shop Manager Relationship Specialty Start Date End Date Name, MD Kiel [address] [place], [place] PCP - General Internal Medicine 08/28/15 documented as of this encounter
--- OUTSIDE RECORDS SUMMARY | 2024-07-04 12:10 | XMS_ITS | Encounter Summary ---
Author Organization [facility] Address [address] [place] [address] Care Team Providers Care Oncology Physician Name Role Phone Name, Kiel BAILEY Primary Care Provider Unavailabl e Name, Kiel BAILEY Primary Care Provider Unavailabl e Philly Vela DO Primary Care Pro vider Unavailable Name, Kiel BAILEY Primary Care Provider Unavailabl e Reason for Visit * Reason Onset Date Comments er follow up 02/26/2015 Encounter Details Date Type Department Care Team Description 02/26/2015 Telephone Adult Medicine [address] [address] Name, MD Kiel er follow up Social History Tobacco Use Types Packs/Day Years Used Date Smoking Tobacco: Some Days Cigarettes 0.5 15 Last attempted to quit: 08/22/2014 Smokeless Tobacco: Never Comments:approx 7 daily Alcohol Use Standard Drinks/Week Comments No 0 (1 standard drink = 0.6 oz pur e alcohol) Sex Assigned at Date Recorded Not on file documented as of this encounter Miscellaneous Notes * Telephone Encounter - Lary Castaneda - 02/26/2015 2:46 PM EST Notes pulled * Telephone Encounter - Asia Aranda - 02/26/2015 11:46 AM EST EMERGENCY DEPARTMENT FOLLOW-UP CONTACT: Did they go to the ER? : Yes Which ER did they go to? : [facility] Was the patient admitted? : No. How is the patient feeling? : getting worse Disposition? : sent note to triage for appointment Comments: need notes from er visits. Patient states that she has gone 2-3 times since Tuesday. documented in this encounter Plan of Treatment Not on file documented as of this encounter Visit Diagnoses Not on filedocumented in this encounter Care Teams Oncology Physician Relationship Specialty Start Date End Date Name, MD Kiel PCP - General 05/26/09 04/27/15 Name, MD Kiel PCP - General Internal Medicine 04/28/15 05/05/15 Philly Vela DO PCP - General Internal Medicine 05/06/15 08/27/15 Name, MD Kiel PCP - General Internal Medicine 08/28/15 documented as of this encounter
--- OUTSIDE RECORDS SUMMARY | 2024-07-04 12:10 | XMS_ITS | Encounter Summary ---
Author Organization [facility] Address [address] [place] [address] Care Team Providers Care Sleeve Presser Operator Name Role Phone Name, Kiel BAILEY Primary Care Provider Unavailabl e Name, Kiel BAILEY Primary Care Provider Unavailabl e Philly Vela DO Primary Care Pro vider Unavailable Name, Kiel BAILEY Primary Care Provider Unavailabl e Encounter Details Date Type Department Care Team Description 09/09/2011 Big Data Hadoop Developer Report Medical Records [address] [place] [phone] Quinton Luther Social History Tobacco Use Types [...] on filedocumented in this encounter Care Teams Sleeve Presser Operator Relationship Specialty Start Date End Date Kiel Shaffer MD PCP - General 05/26/09 04/27/15 Kiel Shaffer MD PCP - General Internal Medicine 04/28/15 05/05/15 Philly Vela DO PCP - General Internal Medicine 05/06/15 08/27/15 Kiel Shaffer MD PCP - General Internal Medicine 08/28/15 documented as of this encounter
--- OUTSIDE RECORDS SUMMARY | 2024-07-04 12:10 | XMS_ITS | Encounter Summary ---
Author Organization [facility] Address [address] [place] [address] Care Team Providers Care Facilities Mechanical Design Engineer Name Role Phone Name, Kiel BAILEY Primary Care Provider Unavailabl e Name, Kiel BAILEY Primary Care Provider Unavailabl e Philly Vela DO Primary Care Pro vider Unavailable Name, Kiel BAILEY Primary Care Provider Unavailabl e Reason for Visit * Reason Onset Date Comments Follow-up Appt Unavailable 08/19/2011 Encounter Details Date Type Department Care Team Description 08/19/2011 Telephone Adult Medicine [address] [address] Name, MD Kiel Follow-up Appt Unavailable Social [...] patient is presenting: patient admitted to [facility] 08/11-08/17 For sob and lung infection/she would like to see dr santiago only How long has patient had these symptoms?: admitted 1week PCP: Kiel Santiago MD [facility] Plan: FFS HMO $0 [id number] Product Type: MEDICAID RISK documented in this encounter Plan of Treatment Not on file documented as of this encounter Visit Diagnoses Not on filedocumented in this encounter Care Teams Facilities Mechanical Design Engineer Relationship Specialty Start Date End Date Kiel Santiago MD PCP - General 05/26/09 04/27/15 Kiel Santiago MD PCP - General Internal Medicine 04/28/15 05/05/15 Philly Vela DO PCP - General Internal Medicine 05/06/15 08/27/15 Kiel Santiago MD PCP - General Internal Medicine 08/28/15 documented as of this encounter
--- OUTSIDE RECORDS SUMMARY | 2024-07-04 12:10 | XMS_ITS | Encounter Summary ---
Author Organization [employer] Address [address] [place] [address] 7t [place] [address] Care Team Providers Care Engineer Soils Name Role Phone Name, Kiel BAILEY Primary Care Provider Katlyn Rodriguez PharmD Unavailable [phone] Reason for Visit * Reason Comments Med Refill Encounter Details Date Type Department Care Team (Late st Contact Info) Description 07/16/2022 Refill [facility] MEDICINE [address] [place], [place] [phone] Name, MD Kiel [address] [place] [address] Chronic pain syndrome Social History Tobacco Use [...] Description 07/12/2024 9:30 AM EDT Medication Management [address] [address] Katlyn Rodriguez PharmD [address] [place] [address] 07/27/2024 10:00 AM EDT Office Visit [address] [address] Name, MD Kiel [address] [place] [address] 08/20/2024 9:30 AM EDT Clinical Support [address] [address] Opal Steiner, RN documented as of this encounter Visit Diagnoses Diagnosis Chronic pain syndrome documented in this encounter Additional Health Concerns Assessment Noted Time PHQ-9 Depression Total Score: 7 07/15/19 23 2:39 PM EDT documented as of this encounter Care Teams Engineer Soils Relationship Specialty Start Date End Date Name, MD Kiel [address] [place] [address] PCP - General Family Medicine 07/15/15 Katlyn Rodriguez PharmD [address] [place] [address] Pharmacist Internal Medicine 10/08/22 Marta Ovalle Diesel Truck MechanicGroundskeeper Porter 05/25/23 documented as of this encounter
--- OUTSIDE RECORDS SUMMARY | 2024-07-04 12:10 | XMS_ITS | Encounter Summary ---
Author Organization [employer] Address [address] [facility] 7t [place] [address] Care Team Providers Care Biodiesel Operations Manager Name Role Phone Name, Kiel BAILEY Primary Care Provider [phone] Katlyn Rodriguez PharmD Unavailable [phone] Reason for Visit * Reason Comments Med Refill Encounter Details Date Type Department Care Team ([facility] st Contact Info) Description 06/08/2024 Refill [facility] [address] [place], [place] [phone] Name, MD Kiel [address] [place] [address] Chronic pain syndrome Social History Tobacco Use [...] 07/12/2024 9:30 AM EDT Medication Management [address] [address] PuiaReidKatlyn, PharmD [address] [place] [address] 07/27/2024 10:00 AM EDT Office Visit [address] [address] Name, MD Kiel [address] [place] [address] 08/20/2024 9:30 AM EDT Clinical Support [address] [address] Opal Steiner RN documented as of this [...] documented as of this encounter Care Teams Biodiesel Operations Manager Relationship Specialty Start Date End Date Name, MD Kiel [address] [place] [address] PCP - General Family Medicine 07/15/15 Katlyn Rodriguez, PharmD [address] [place] [address] Pharmacist Internal Medicine 10/08/22 Marta Ovalle Dial Equipment EngineerBiodiesel Engineering Manager 05/25/23 documented as of this encounter
--- OUTSIDE RECORDS SUMMARY | 2024-07-04 12:10 | XMS_ITS | Encounter Summary ---
Author Organization [facility] Address [address] [place] [address] Care Team Providers Care Meter And Regulator Shop Supervisor Name Role Phone NameKiel MD Primary Care Provider Unavailabl e Encounter Details Date Type Department Care Team Description 01/13/2021 Orders Only Cardio [facility] Diag Testing [address] [place] [address] [place] [address] Doreen Villatoro PA Chest pain, unspecified type [...] Primary documented in this encounter Care Teams Meter And Regulator Shop Supervisor Relationship Specialty Start Date End Date Name, MD Kiel PCP - General Internal Medicine 08/28/15 documented as of this encounter
--- OUTSIDE RECORDS SUMMARY | 2024-07-04 12:10 | XMS_ITS | Encounter Summary ---
Author [facility] Address [address] [place] [address] Care Team Providers Care Rental Representative Name Role Phone Name, Kiel BAILEY Primary Care Provider Unavailabl e Name, Kiel BAILEY Primary Care Provider Unavailabl e Philly Vela DO Primary Care Pro vider Unavailable Name, Kiel BAILEY Primary Care Provider Unavailabl e Encounter Details Date Type Department Care Team Description 08/15/2011 Hospital Medical Records [address] [place] [address] Dot Cordova Social History Tobacco Use Types [...] on filedocumented in this encounter Care Teams Rental Representative Relationship Specialty Start Date End Date Kiel Shaffer MD PCP - General 05/26/09 04/27/15 Kiel Shaffer MD PCP - General Internal Medicine 04/28/15 05/05/15 Philly Vela DO PCP - General Internal Medicine 05/06/15 08/27/15 Kiel Shaffer MD PCP - General Internal Medicine 08/28/15 documented as of this encounter
--- OUTSIDE RECORDS SUMMARY | 2024-07-04 12:10 | XMS_ITS | Encounter Summary ---
Author Organization [employer] Address [address] [facility] [address] 7t [place] [address] Care Team Providers Care Smoke Jumper Name Role Phone Name, Kiel BAILEY Primary Care Provider [phone] Katlyn Rodriguez PharmD Unavailable [phone] Encounter Details Date Type Department Care Team ([facility] st Contact Info) Description 02/20/2024 Telephone [facility] [address] [place], [place] [phone] Name, MD Kiel [address] [place] [address] Social History Tobacco Use Types Packs/Day Years [...] Description 07/12/2024 9:30 AM EDT Medication Management [address] [address] PuiaReidKatlyn, PharmD [address] [place] [address] 07/27/2024 10:00 AM EDT Office Visit [address] [address] Name, MD Kiel [address] [place] [address] 08/20/2024 9:30 AM EDT Clinical Support [address] [address] Opal Steiner, MARINA documented as of this [...] documented as of this encounter Care Teams Smoke Jumper Relationship Specialty Start Date End Date Name, MD Kiel [address] [place] [address] PCP - General Family Medicine 07/15/15 Katlyn Rodriguez PharmD [address] [place] [address] Pharmacist Internal Medicine 10/08/22 Marta Ovalle Property AccountantSweatband Shaper 05/25/23 documented as of this encounter
--- OUTSIDE RECORDS SUMMARY | 2024-07-04 12:10 | XMS_ITS | Encounter Summary ---
Author Organization [facility] Address [address] [place] [address] Care Team Providers Care Chief Information Security Officer Name Role Phone Name, Kiel BAILEY Primary Care Provider Unavailabl e Name, Kiel BAILEY Primary Care Provider Unavailabl e Philly Vela DO Primary Care Pro vider Unavailable Name, Kiel BAILEY Primary Care Provider Unavailabl e Encounter Details Date Type Department Care Team Description 10/03/2014 Hospital Medical Records [address] [place] [address] Randall Garcia MD Social History Tobacco Use [...] on filedocumented in this encounter Care Teams Chief Information Security Officer Relationship Specialty Start Date End Date Kiel Shaffer MD PCP - General 05/26/09 04/27/15 Kiel Shaffer MD PCP - General Internal Medicine 04/28/15 05/05/15 Philly Vela DO PCP - General Internal Medicine 05/06/15 08/27/15 Kiel Shaffer MD PCP - General Internal Medicine 08/28/15 documented as of this encounter
--- OUTSIDE RECORDS SUMMARY | 2024-07-04 12:10 | XMS_ITS | Encounter Summary ---
Author Organization [facility] Address [address] [place] [address] Care Team Providers Care Oil Pipe Inspector Name Role Phone Name, Kiel BAILEY Primary Care Provider Unavailabl e Name, Kiel BAILEY Primary Care Provider Unavailabl e Philly Vela DO Primary Care Pro vider Unavailable Name, Kiel BAILEY Primary Care Provider Unavailabl e Encounter Details Date Type Department Care Team Description 02/11/2011 Wire Taper Report Medical Records [address] [place] [address] Quinton Luther Social History Tobacco Use Types [...] on filedocumented in this encounter Care Teams Oil Pipe Inspector Relationship Specialty Start Date End Date Kiel Shfafer MD PCP - General 05/26/09 04/27/15 Kiel Shaffer MD PCP - General Internal Medicine 04/28/15 05/05/15 Philly Vela DO PCP - General Internal Medicine 05/06/15 08/27/15 Kiel Shaffer MD PCP - General Internal Medicine 08/28/15 documented as of this encounter
--- OUTSIDE RECORDS SUMMARY | 2024-07-04 12:10 | XMS_ITS | Encounter Summary ---
Author Organization [employer] Address [address] [facility] 7t [place] [address] Care Team Providers Care Pipe Fitter Name Role Phone Name, Kiel BAILEY Primary Care Provider [phone] Katlyn Rodriguez PharmD Unavailable Reason for Visit * Reason Onset Date Comments Appointment Request 02/29/2024 Encounter Details Date Type Department Care Team ([facility] st Contact Info) Description 02/29/2024 Telephone [facility] MEDICINE [address] [place] [address] Name, MD Kiel [address] [place] [address] Appointment Request Social History Tobacco Use Types [...] different date and time. Pt does speak maltese so you will need an certified court interpreter. documented in this encounter Plan of Treatment Upcoming Encounters Date Type Department Care Team (Late st Contact Info) Description 07/12/2024 9:30 AM EDT Medication Management [address] [address] Katlyn Rodriguez, PharmD [address] [place] [address] 07/27/2024 10:00 AM EDT Office Visit [address] [address] Name, MD Kiel [address] [place] [address] 08/20/2024 9:30 AM EDT Clinical Support [address] [address] Opal Steiner, RN documented as of this [...] documented as of this encounter Care Teams Pipe Fitter Relationship Specialty Start Date End Date Name, MD Kiel [address] [place] [address] PCP - General Family Medicine 07/15/15 Puia, Katlyn, PharmD [address] [place] [address] Pharmacist Internal Medicine 10/08/22 Marta Ovalle Account Support ManagerOffice Machine Servicer 05/25/23 documented as of this encounter
--- OUTSIDE RECORDS SUMMARY | 2024-07-04 12:10 | XMS_ITS | Encounter Summary ---
Author Organization [employer] Address [address] [place] [address] 7t [place] [address] Care Team Providers Care Intake Nurse Name Role Phone Name, Kiel BAILEY Primary Care Provider [phone] Katlyn Rodriguez PharmD Unavailable [phone] Reason for Visit * Reason Comments Med Refill Encounter Details Date Type Department Care Team ([facility] st Contact Info) Description 07/02/2022 Refill [facility] MEDICINE [address] [place] [address] Name, MD Kiel [address] [place] [address] Chronic pain syndrome Social History Tobacco Use [...] Upcoming Encounters Date Type Department Care Team ([facility] Contact Info) Description 07/12/2024 9:30 AM EDT Medication Management [facility] MEDICINE [address] [place] [address] Katlyn Rodriguez PharmD [address] [place] [address] 07/27/2024 10:00 AM EDT Office Visit [address] [address] Name, MD Kiel [address] [place] [address] 08/20/2024 9:30 AM EDT Clinical Support [address] [address] Opal Steiner RN documented as of this encounter Visit Diagnoses Diagnosis Chronic pain syndrome documented in this encounter Care Teams Intake Nurse Relationship Specialty Start Date End Date Name, MD Kiel [address] [place] [address] PCP - General Family Medicine 07/15/15 Katlyn Rodriguez, PharmD [address] [place] [address] Pharmacist Internal Medicine 10/08/22 Marta Ovalle Patient Scheduling CoordinatorTechnology Strategist 05/25/23 documented as of this encounter
--- OUTSIDE RECORDS SUMMARY | 2024-07-04 12:11 | XMS_ITS | Encounter Summary ---
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 ) Social History Tobacco Use Types Packs/Day [...] encounter Miscellaneous Notes * Telephone Encounter - Flora Christianson RN - 06/29/2024 1:28 PM EDT TC placed to [facility] pharmacy regarding below message from pt. Pharmacy staff Alana states that the pharmacy spoke to the provider yesterday regarding oxyCODONE (Roxicodone) 10 MG immediate release tablet. Pt is being increased from 2 times daily to 3 times daily for the oxyCODONE (Roxicodone) 10 MG immediate release tablet. Pharmacy staff Alana states it is too soon for pt to fill script as they picked up on 06/15/24 for a 28 day supply and insurance will not cover the medication this early. Alana states the pt should have 28 pills left. Pharmacy staff Alana advises that the pt continue to use home supply until they get down to around 6 pills left. Alana states that once the pt gets to around 6 pills left to call the pharmacy for refill and they will be able to either fill the medicationor request an override from the insurance company for the medication at that time. TC placed to pt via BLS per diem interpreter (Bradley ID#[id number]) to inform of above pharmacy message. Pt advised of pharmacy message. Pt reports they are completely out of their oxyCODONE (Roxicodone) 10 MG immediate release tablet. Pt reports they have been taking 3 pills through out the day and one in the middle of the nighta 3-4 AM. Asked pt if they have been taking 3 pills per day or 4 pills. Pt stated again they have been taking 3 during the day and one in the middle of the night a 3-4 AM. Pt reports she was advised by ED to take 3 pills per day instead of 2. Pt reports PCP gave authorization for the medication, but pharmacy still wouldn't give it to her. Advised due to insurance. Pt reports they need their medication and they are out of the medication. Building Tech found ED note regarding increase in dose from 2 to 3 pills and was given 30 to increase the frequency to TID. Note states further dosing per PCP. ED note scanned into pt chart under encounters. TC placed to [facility] pharmacy to inform. Spoke with Allison in the pharmacy and advised that typewriter ribbon winder found note that pt was advised in ED to increase to TID for oxyCODONE (Roxicodone) 10 MG immediate release tablet. Advised that pt reports they are completely out of medication. Allison states they will call the pt's insurance company. Incoming TC from Allison who states the pt should still have 19 pills left as the pt was hospitalized until 06/20/24. Pt not due for refill as they should have 19 pills left and insurance will not cover refill this soon. TC placed to pt via Re[employer] per diem interpreter (Fiona ID#[id number]) to advise medication not available to be filled and status check pt. Pt reports completely out of medication. Pt reports headach e at 8. Advised pt due to insurance refill not available as it is too soon for refill. Advisedpt due to not being able to fill medication at this time and headache rated at 810 to return to the ED. Pt verbalized understanding. Message forwarded to PCP as an FYI. 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 documented in this encounter Plan of Treatment Upcoming Encounters Date Type Department Care Team (Late st Contact Info) Description 07/12/2024 9:30 AM EDT Medication Management [address] [address] Puia, Katlyn, PharmD [address] [place] [address] 07/27/2024 10:00 AM EDT Office Visit [address] [address] Name, MD Kiel [address] [place] [address] 08/20/2024 9:30 AM EDT Clinical Support [address] [address] Opal Steiner, MARINA documented as of this [...] documented as of this encounter Care Teams Bench Shear Operator Relationship Specialty Start Date End Date Name, MD Kiel [address] [place] [address] PCP - General Family Medicine 07/15/15 Katlyn Rodriguez, AngieD [address] [place] [address] Pharmacist Internal Medicine 10/08/22 Marta Ovalle Clothing PresserInsurance Claims Processor 05/25/23 documented as of this encounter
--- OUTSIDE RECORDS SUMMARY | 2024-07-04 12:11 | XMS_ITS | Encounter Summary ---
Author Organization [facility] Address [address] [place] [address] Care Team Providers Care Naval Engineer Name Role Phone Name, Kiel BAILEY Primary Care Provider Unavailabl e Name, Kiel BAILEY Primary Care Provider Unavailabl e Philly Vela DO Primary Care Pro vider Unavailable Name, Kiel BAILEY Primary Care Provider Unavailabl e Encounter Details Date Type Department Care Team Description 11/19/2009 Hospital Medical Records [address] [place] [address] Dionna August PA-C Social History Tobacco Use Types Packs/Day [...] on filedocumented in this encounter Care Teams Naval Engineer Relationship Specialty Start Date End Date Kiel Shaffer MD PCP - General 05/26/09 04/27/15 Kiel Shaffer MD PCP - General Internal Medicine 04/28/15 05/05/15 Philly Vela DO PCP - General Internal Medicine 05/06/15 08/27/15 Kiel Shaffer MD PCP - General Internal Medicine 08/28/15 documented as of this encounter
--- OUTSIDE RECORDS SUMMARY | 2024-07-04 12:11 | XMS_ITS | Encounter Summary ---
Author [facility] Address [address] [place] [address] Care Team Providers Care Communications Professor Name Role Phone Name, Kiel BAILEY Primary Care Provider Unavailabl e Name, Kiel BAILEY Primary Care Provider Unavailabl e Philly Vela DO Primary Care Pro vider Unavailable Name, Kiel BAILEY Primary Care Provider Unavailabl e Encounter Details Date Type Department Care Team Description 02/24/2013 Hospital Medical Records [address] [place] [address] Desilets, Shamir Mims MD Social History Tobacco [...] on filedocumented in this encounter Care Teams Communications Professor Relationship Specialty Start Date End Date Kiel Shaffer MD PCP - General 05/26/09 04/27/15 Kiel Shaffer MD PCP - General Internal Medicine 04/28/15 05/05/15 Philly Vela DO PCP - General Internal Medicine 05/06/15 08/27/15 Kiel Shaffer MD PCP - General Internal Medicine 08/28/15 documented as of this encounter
--- OUTSIDE RECORDS SUMMARY | 2024-07-04 12:11 | XMS_ITS | Encounter Summary ---
Author Organization [facility] Address [address] [place] [address] Care Team Providers Care Healthcare Representative Name Role Phone Name, Kiel BAILEY Primary Care Provider Unavailabl e Name, Kiel BAILEY Primary Care Provider Unavailabl e Philly Vela DO Primary Care Pro vider Unavailable Name, Kiel BAILEY Primary Care Provider Unavailabl e Encounter Details Date Type Department Care Team Description 03/06/2013 Release of Information Medical Records [address] [place] [address] Abstract, Provider Social History Tobacco Use Types [...] on filedocumented in this encounter Care Teams Healthcare Representative Relationship Specialty Start Date End Date Kiel Shaffer MD PCP - General 05/26/09 04/27/15 Kiel Shaffer MD PCP - General Internal Medicine 04/28/15 05/05/15 Philly Vela DO PCP - General Internal Medicine 05/06/15 08/27/15 Kiel Shaffer MD PCP - General Internal Medicine 08/28/15 documented as of this encounter
--- OUTSIDE RECORDS SUMMARY | 2024-07-04 12:11 | XMS_ITS | Encounter Summary ---
Author Organization [facility] Address [address] [place] [address] Care Team Providers Care Green Building Design Specialist Name Role Phone Name, Kiel BAILEY Primary Care Provider Unavailabl e Name, Kiel BAILEY Primary Care Provider Unavailabl e Philly Vela DO Primary Care Pro vider Unavailable Name, Kiel BAILEY Primary Care Provider Unavailabl e Encounter Details Date Type Department Care Team Description 12/08/2009 Night Triage Doc Medical Records [address] [place] [address] Abstract, Provider Social History Tobacco Use Types [...] on filedocumented in this encounter Care Teams Green Building Design Specialist Relationship Specialty Start Date End Date Kile Shaffer MD PCP - General 05/26/09 04/27/15 Kiel Shaffer MD PCP - General Internal Medicine 04/28/15 05/05/15 Philly Vela DO PCP - General Internal Medicine 05/06/15 08/27/15 Kiel Shaffer MD PCP - General Internal Medicine 08/28/15 documented as of this encounter
--- OUTSIDE RECORDS SUMMARY | 2024-07-04 12:11 | XMS_ITS | Clinical Summary ---
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 Age/Sex: 58 / FADM Date: 04/06/24 Loc: HO.ED Attending Dr: Ordering Physician: Page Garcia DO Date of Service: 04/06/24 Procedure(s): CT cervical spine wo IV con Accession Number(s): [id number] cc: Page Garcia DO; Name,Kiel BAILEY Report Number: [id number]: Total DLP = 0.00 mGy-cm CLINICAL HISTORY: [...] OV> 04/06/241902 DD/ 01 TD/TT: 04/06/241901 Senior It Recruiter: [facility] External Provider IMG CT PROCEDURES Edited Result - Final * XR Humerus Left (04/06/2024 2:32 PM EST) Anatomical Region Laterality Modality Upper Extremities, Humerus Left Radio graphic Imaging 04/06/2024 2:32 PM EST Narrative 04/06/2024 3:02 PM EST ? [facility] ?[address] ?[place] [address] ?XRay Report ? Signed ? Patient: Puga,Shilpi ?MR#: [id number] ?? 92 ? : 1965 ?Acct:[id number] ? Age/Sex: 58 / F ?ADM Date: 04/06/24 ? Loc: HO.ED ? Attending Dr: ? Ordering Physician: Page Garcia DO ?? Date of Service: 04/06/24 ?? Procedure(s): XR humerus LT ?? Accession Number(s): [id number] ? cc: Page Garcia DO; Kiel Shaffer [...] the left humerus. ? Electronically signed by: ??Kneny Fernandes MD ??04/06/2024 02:59 PM EST ? Dictated By: ?Kenny Fernandes MD ? Signed By: ?<Electronically signed by Kenny Fernandes MD in OV> ?04/06/24 1459 ? DD/ 1432 ? TD/TT: 04/06/24 1446 ? Senior It Recruiter: ? Procedure Note Sarmad, Jung - 04/06/[address] [address] XRay Report Signed Patient: Sarita Puga MMR#: [id number] 92 : 1965Acct:[id number] Age/Sex: 58 / FADM Date: 04/06/24 Loc: HO.ED Attending Dr: Ordering Physician: Page Garcia DO Date of Service: 04/06/24 Procedure(s): XR humerus LT Accession Number(s): [id number] cc: Page Garcia DO; Name,Kiel BAILEY EXAMINATION: [...] 1459 DD/ 1432 TD/TT: 04/06/24 1446 Senior It Recruiter: [facility] External Provider IMG XR PROCEDURES Edited Result - Final * BI Mammogram Screening Tomosynthesis Bilateral (06/03/2023 8:45 AM EDT) Anatomical Region Laterality Modality Breast Bilateral Mammography 06/03/2023 8:45 AM EDT Narrative 06/30/2023 10:24 PM EDT ? [facility] ? [address] ?[place] [address] ? Mammography Report ? Signed ? Patient: Puga,Shilpi ?MR#: [id number] ?? 92 ? : 1965 ?Acct:[id number] ? Age/Sex: 57 / F ?ADM Date: 04/12/24 ? Loc: HO.MAMMO ? Attending Dr: Kiel Name MD ? Ordering Physician: Name,Kiel MD ?Results: 1Negative ? Date of Service: 06/03/23 ?Follow Up: 1 Year From Orig ?? inal Mammogram ? Procedure(s): MM tomosynthesis screening BI ?? Accession Number(s): [id number] ? cc: Name,Kiel BAILEY ? EXAMINATION: ?? [...] by Nancy Healy MD in OV> ? /11/140 ? DD/ 0845 ? TD/TT: ? Senior It Recruiter: ? Procedure Note Sarmad, Image - 06/30/2023 [facility] [address] [place], [place] [address] Mammography Report Signed Patient: Sarita Puga MMR#: [id number] 92 : 1965Acct:[id number] Age/Sex: 57 / FADM Date: 06/03/23 Loc: .MAMMO Attending Dr: Kiel Shaffer MD Ordering Physician: Kiel Shaffer MDResults: 1Negative Date of Service: 06/03/23Follow Up: 1 Year From Orig inal Mammogram Procedure(s): MM tomosynthesis screening BI Accession Number(s): [id number] cc: Kiel Shaffer MD EXAMINATION: MM SCREENING [...] in OV> 06/30/23 2220 DD/ 0845 TD/TT: Senior It Recruiter: Kiel Shaffer MD IM BI PROCEDURES Edited Result - Final * Albumin, Random Urine W/Creatinine (05/26/2023 8:27 AM EDT) Creatinine, Urine 185.88 mg/dL [facility] Microalbumin Urine 23.0 mg/L [facility] Microalbum Creatinine Ratio Ur 12.3 <30 ug/mg cr [facility] Comment:Albumin/Creatinine R atio Reference Ranges: Normal: < 30 ug/mg creatinine Microalbuminuria: 30 - 300 ug/mg creatinineClinical Albuminuria: > 300 ug/mg creatinine Urine (Urine, Random) 05/26/2023 8:27 AM EDT 05/26/2023 11:19 AM EDT us Kiel Shaffer MD LAB URINE ORDERABLES Final Resul t [facility] [address] [place] [phone] * Colonoscopy (07/01/2022 4:37 PM EDT) Colonoscopy Normal Normal Narrative [place] - 07/01/2022 4:37 PM EDT Recommended 5 year follow up ([facility]) [facility] Provider HEALTH MAINTENANCE Final Result * Diabetes Eye Exam (05/26/2022) Eye Exam Normal Normal us Kiel Shaffer MD HEALTH MAINTENANCE Final Result from Last 3 Months or Most Recently Relevant to Health Maintenance Insurance [facility] [place] [place] [address] [place] [address]HEALTH C3 [employer] [place] [address] [place] [address] [place] [address] Care Teams Cat Wagon Operator Relationship Specialty Start Date End Date Name, MD Kiel [address] [place] [address] PCP - General Family Medicine 07/15/15 Katlyn Rodriguez PharmD [address] [place] [address] Pharmacist Internal Medicine 10/08/22 Marta Ovalle Co Founder And ChairmanForming Roll Operator 05/25/23
--- OUTSIDE RECORDS SUMMARY | 2024-07-04 12:11 | XMS_ITS | Encounter Summary ---
[facility] Organization [facility] Address [address] [place] [address] Care Team Providers Care Can Stacker Name Role Phone Name, Kiel BAILEY Primary Care Provider Unavailabl e Name, Kiel BAILEY Primary Care Provider Unavailabl e Philly Vela DO Primary Care Pro vider Unavailable Name, Kiel BAILEY Primary Care Provider Unavailabl e Encounter Details Date Type Department Care Team Description 06/01/2010 Bar Machine Operator Production Report Medical Records [address] [place] [address] Shon Blanca Social History Tobacco Use Types [...] on filedocumented in this encounter Care Teams Can Stacker Relationship Specialty Start Date End Date Deena, MD Kiel PCP - General 05/26/09 04/27/15 Kiel Shaffer MD PCP - General Internal Medicine 04/28/15 05/05/15 Philly Vela DO PCP - General Internal Medicine 05/06/15 08/27/15 Kiel Shaffer MD PCP - General Internal Medicine 08/28/15 documented as of this encounter
--- OUTSIDE RECORDS SUMMARY | 2024-07-04 12:11 | XMS_ITS | Encounter Summary ---
Author Organization [facility] Address [address] [place] [address] Care Team Providers Care Armor Reconnaissance Vehicle Driver Name Role Phone Name, Kiel BAILEY Primary Care Provider Unavailabl e Name, Kiel BAILEY Primary Care Provider Unavailabl e Philly Vela DO Primary Care Pro vider Unavailable Name, Kiel BAILEY Primary Care Provider Unavailabl e Encounter Details Date Type Department Care Team Description 09/16/2010 Apprise Counselor Report Medical Records [address] [place] [address] Shon Blanca Social History Tobacco Use Types [...] on filedocumented in this encounter Care Teams Armor Reconnaissance Vehicle Driver Relationship Specialty Start Date End Date Deena, MD Kiel PCP - General 05/26/09 04/27/15 Kiel Shaffer MD PCP - General Internal Medicine 04/28/15 05/05/15 Philly Vela DO PCP - General Internal Medicine 05/06/15 08/27/15 Kiel Shaffer MD PCP - General Internal Medicine 08/28/15 documented as of this encounter
--- OUTSIDE RECORDS SUMMARY | 2024-07-04 12:11 | XMS_ITS | Encounter Summary ---
Author Organization [facility] Address [address] [place] [address] Care Team Providers Care Foreign Exchange Clerk Name Role Phone Name, Kiel BAILEY Primary Care Provider Unavailabl e Name, Kiel BAILEY Primary Care Provider Unavailabl e Philly Vela DO Primary Care Pro vider Unavailable Name, Kiel BAILEY Primary Care Provider Unavailabl e Encounter Details Date Type Department Care Team Description 02/25/2013 Hospital Medical Records [address] [place] [address] Gaviota Moody MD Social History Tobacco Use [...] on filedocumented in this encounter Care Teams Foreign Exchange Clerk Relationship Specialty Start Date End Date Kiel Shaffer MD PCP - General 05/26/09 04/27/15 Kiel Shaffer MD PCP - General Internal Medicine 04/28/15 05/05/15 Philly Vela DO PCP - General Internal Medicine 05/06/15 08/27/15 Kiel Shaffer MD PCP - General Internal Medicine 08/28/15 documented as of this encounter
--- OUTSIDE RECORDS SUMMARY | 2024-07-04 12:11 | XMS_ITS | Encounter Summary ---
Author Organization [employer] Address [address] [facility] [address] [place] [address] Care Team Providers Care Blade Worker Name Role Phone Name, Kiel BAILEY Primary Care Provider [phone] Katlyn Rodriguez PharmD Unavailable [phone] Reason for Visit * Reason Onset Date Comments Nurse Triage 07/04/2024 Encounter Details Date Type Department Care Team ([facility] st Contact Info) Description 07/04/2024 Telephone [facility] [address] [place] [address] Name, MD Kiel [address] [place] [address] Nurse Triage Social History Tobacco Use Types Packs/Day Years [...] Telephone Encounter - Chitra Lancaster RN - 07/04/2024 11:25 AM EDT Triage call with [facility] Laboratory Geneticist [place] [id number]. Pt reports headache over the entire head. No involvement with eye area. BP is 104/60. Pt has been seen by neurologist at [facility] and is being tested for possible tumor. Pt was prescribed dexamethasone byneurologist. Pt pain is moderate . Pt has been prescribed roxicodone 10mg starting 06/28/24 but, reports pharmacy wouldn't fill prescription last time contacted. Pt daughter is speaking for Pt at this time. Daughter is advised to call [facility] for prescription of roxicodone which should be available at this time. Daughter agrees with this advice and will call back if problem obtaining prescribed pain medication. Pt is in an office for another apt at time of call. Pt agrees with disposition. Protocol Used: Headache (Adult) Protocol-Based Disposition: Home Care Positive Triage Question: * Mild to moderate headache * All higher-acuity triage questions were negative Care Advice Discussed: * Pain Medicines * Reasons To Call Back - Severe headache lasts over 2 hours after pain medicine - Headache lasts over 72 hours - Stiff neck occurs (can't touch chin to chest) - You become worse * Telephone Encounter - Aretha Gomeznte - 07/04/2024 10:57 AM EDT Symptom: Headache Outcome: Schedule an urgent appointment (within 4 hours) or talk to a nurse or provider soon Reason: Getting worse The caller accepted this outcome. Contact pt at [phone] (romanian) documented in this encounter Plan of Treatment Upcoming Encounters Date Type Department Care Team ([facility] st Contact Info) Description 07/12/2024 9:30 AM EDT Medication Management [address] [address] Puia, Katlyn, PharmD [address] [place] [address] 07/27/2024 10:00 AM EDT Office Visit [address] [address] Name, MD Kiel [address] [place] [address] 08/20/2024 9:30 AM EDT Clinical Support [address] [address] Opal Steiner, MARINA documented as of this [...] documented as of this encounter Care Teams Blade Worker Relationship Specialty Start Date End Date Name, MD Kiel [address] [place] [address] PCP - General Family Medicine 07/15/15 Katlyn Rodriguez PharmD [address] [place] [address] Pharmacist Internal Medicine 10/08/22 Marta Ovalle Rn EdAssistant County Engineer 05/25/23 documented as of this encounter
--- OUTSIDE RECORDS SUMMARY | 2024-07-04 12:11 | XMS_ITS | Encounter Summary ---
Author Organization [facility] Address [address] [place] [address] Care Team Providers Care Magazine Publisher Name Role Phone Name, Kiel BAILEY Primary Care Provider Unavailabl e Name, Kiel BAILEY Primary Care Provider Unavailabl e Philly Vela DO Primary Care Pro vider Unavailable Name, Kiel BAILEY Primary Care Provider Unavailabl e Encounter Details Date Type Department Care Team Description 08/13/2010 Edi Programmer Analyst Report Medical Records [address] [place] [address] Shon Blanca Social History Tobacco Use Types [...] on filedocumented in this encounter Care Teams Magazine Publisher Relationship Specialty Start Date End Date Deena, MD Kiel PCP - General 05/26/09 04/27/15 Kiel Shaffer MD PCP - General Internal Medicine 04/28/15 05/05/15 Philly Vela DO PCP - General Internal Medicine 05/06/15 08/27/15 Kiel Shaffer MD PCP - General Internal Medicine 08/28/15 documented as of this encounter
--- OUTSIDE RECORDS SUMMARY | 2024-07-04 12:11 | XMS_ITS | Encounter Summary ---
Author Organization [employer] Address [address] [facility] 7t [place] [address] Care Team Providers Care Instructor Creeler Name Role Phone Name, Kiel BIALEY Primary Care Provider [phone] Katlyn Rodriguez PharmD Unavailable [phone] Reason for Visit * Reason Onset Date Comments Durable Medical Equipment 01/24/2023 Encounter Details Date Type Department Care Team ([facility] st Contact Info) Description 01/24/2023 Telephone [facility] [address] [place] [address] Name, MD Kiel [address] [place] [address] Durable Medical Equipment Social History Tobacco Use [...] to errol. Any questions, contact pt at [phone] documented in this encounter Plan of Treatment Upcoming Encounters Date Type Department Care Team (Late st Contact Info) Description 07/12/2024 9:30 AM EDT Medication Management [address] [address] Katlyn Rodriguez PharmD [address] [place] [address] 07/27/2024 10:00 AM EDT Office Visit [address] [address] Name, MD Kiel [address] [place] [address] 08/20/2024 9:30 AM EDT Clinical Support [address] [phone] Opal Steiner, RN documented as of this [...] Aktlyn, PharmD documented as of this encounter Visit Diagnoses Not on filedocumented in this encounter Additional Health Concerns Assessment Noted Time PHQ-9 Depression Total Score: 7 07/15/19 23 2:39 PM EDT documented as of this encounter Care Teams Instructor Creeler Relationship Specialty Start Date End Date Name, MD Kiel [address] [place] [address] PCP - General Family Medicine 07/15/15 Katlyn Rodriguez, PharmD [address] [place] [address] Pharmacist Internal Medicine 10/08/22 Marta Ovalle Monitoring ManagerStraightedge Man 05/25/23 documented as of this encounter
--- OUTSIDE RECORDS SUMMARY | 2024-07-04 12:11 | XMS_ITS | Encounter Summary ---
Author Organization [facility] Address [address] [place] [address] Care Team Providers Care Veneer Grader Name Role Phone Name, Kiel BAILEY Primary Care Provider Unavailabl e Name, Kiel BAILEY Primary Care Provider Unavailabl e Philly Vela DO Primary Care Pro vider Unavailable Name, Kiel BAILEY Primary Care Provider Unavailabl e Encounter Details Date Type Department Care Team Description 11/06/2010 Phlebotomy Technologist Report Medical Records [address] [place] [address] Quinton Luther Social History Tobacco Use Types [...] on filedocumented in this encounter Care Teams Veneer Grader Relationship Specialty Start Date End Date Kiel Shaffer MD PCP - General 05/26/09 04/27/15 Kiel Shaffer MD PCP - General Internal Medicine 04/28/15 05/05/15 Philly Vela DO PCP - General Internal Medicine 05/06/15 08/27/15 Kiel Shaffer MD PCP - General Internal Medicine 08/28/15 documented as of this encounter
--- OUTSIDE RECORDS SUMMARY | 2024-07-04 12:11 | XMS_ITS | Encounter Summary ---
Author Organization [facility] Address [address] [place] [address] Care Team Providers Care Surgical Scrub Technician Name Role Phone Name, Kiel BAILEY Primary Care Provider Unavailabl e Name, Kiel BAILEY Primary Care Provider Unavailabl e Philly Vela DO Primary Care Pro vider Unavailable Name, Kiel BAILEY Primary Care Provider Unavailabl e Encounter Details Date Type Department Care Team Description 12/14/2013 Hospital Medical Records [address] [place] [address] Randall Garcia MD Social History Tobacco Use [...] on filedocumented in this encounter Care Teams Surgical Scrub Technician Relationship Specialty Start Date End Date Kiel Shaffer MD PCP - General 05/26/09 04/27/15 Kiel Shaffer MD PCP - General Internal Medicine 04/28/15 05/05/15 Philly Vela DO PCP - General Internal Medicine 05/06/15 08/27/15 Kiel Shaffer MD PCP - General Internal Medicine 08/28/15 documented as of this encounter
--- OUTSIDE RECORDS SUMMARY | 2024-07-04 12:11 | XMS_ITS | Encounter Summary ---
Author Organization [facility] Address [address] [place] [address] Care Team Providers Care Respiratory Therapy Assistant Name Role Phone Kiel Shaffer MD Primary Care Provider Unavailabl e NameKiel MD Primary Care Provider Unavailabl e Philly Vela DO Primary Care Pro vider Unavailable NameKiel MD Primary Care Provider Unavailabl e Reason for Referral * Specialist (Routine) - Authorized/Booked Specialty Diagnoses / Procedures Referred By Carroll hoover Referred To Contact PAIN MANAGEMENT / Pain Management Procedures REFERRAL TO PAIN MANAGEMENT Kiel Shaffer MD [address] [place] [address] External Pain Man Referral ID Status Reason Start Date Expiration Date V isits Requested Visits Authorized SEE REVIEW 02/07/13 Authorized/ Booked 02/07/2013 05/08/2013 1 1 Reason for Visit * Reason Onset Date Comments Truer Pinion And Wheel Feedback 02/07/2013 [facility] Pain Az nagement Encounter Details Date Type Department Care Team Description 02/07/2013 Refill Adult Medicine [address] [address] Kiel Sahffer MD Truer Pinion And Wheel Feedback ([facility] Pain Management) Social History Tobacco Use Types Packs/Day Years Used Date Smoking Tobacco: Every Day Cigarettes 0.3 15 Smokeless Tobacco: Never Comments:resumed smoking.6 c ig a day Alcohol Use Standard Drinks/Week Comments No 0 (1 standard drink = 0.6 oz pur e alcohol) Sex Assigned at Date Recorded Not on file documented as of this encounter Miscellaneous Notes * Telephone Encounter - Ness Gupta - 02/07/2013 1:31 PM EST Please review this patients new referral request. The referral has been pended. Please complete thefollowing: If approved> sign order If denied>please give instructions and route to your practice nursing pool. Practice nurse should inform referrals and the patient if denied. * Telephone Encounter - Rebecca Pearson - 02/07/2013 1:15 PM EST Did you verify this is patients current insurance? YES Payor: [employer] FFS Plan: FFS HMO $0 [place] [id number] Product Type: MEDICAID RISK Effective 11/21/08: BCBS will not retro referral requests over 90 days. If request is for this please instruct patient to call the 800# on their insurance card to appeal. Do not submit a request. Referrals cannot be processed if the insurance is not accurate. If the insurance listed above in red is NO BILLING INFORMATION FOUND FOR THIS ENCOUTNER The patients correct insurance must be obtained and registered in [facility] or their referral can not be processed. Who is calling to request this referral? patient If the caller is not the patient, what is their name? FIRST and LAST NAME of SPECIALIST PATIENT is seeing: [facility] Pain Management What specialty is this? physiatry DIAGNOSIS Patient is being seen for (Not a body part or a procedure): back pain Have you seen this SPECIALIST for this PROBLEM/DX before?NO If YES, when: Have you checked REVIEW or the APPT DESK to see if this referral has already been done or has visits left? NO Who referred the patient to this specialty? Dr Name Is this visit:Initial Visit Address of Specialist:[address] [place] [address] Phone # of Specialist:[phone] Fax #: (if applicable): Does patient have an appointment scheduled?: NO Date of appointment- (including a retro-request): Is this appointment related to: documented in this encounter Plan of Treatment Not on file documented as of this encounter Visit Diagnoses Not on filedocumented in this encounter Care Teams Respiratory Therapy Assistant Relationship Specialty Start Date End Date Name, MD Kiel PCP - General 05/26/09 04/27/15 Kiel Shaffer MD PCP - General Internal Medicine 04/28/15 05/05/15 Philly Vela DO PCP - General Internal Medicine 05/06/15 08/27/15 Name, MD Kiel PCP - General Internal Medicine 08/28/15 documented as of this encounter
--- OUTSIDE RECORDS SUMMARY | 2024-07-04 12:11 | XMS_ITS | Encounter Summary ---
Author Organization [facility] Address [address] [place] [address] Care Team Providers Care Fork Operator Name Role Phone Name, Kiel BAILEY Primary Care Provider Unavailabl e Name, Kiel BAILEY Primary Care Provider Unavailabl e Philly Vela DO Primary Care Pro vider Unavailable Name, Kiel BAILEY Primary Care Provider Unavailabl e Reason for Visit * Reason Onset Date Comments Faxed Order 11/27/2013 Encounter Details Date Type Department Care Team Description 11/27/2013 Telephone Adult Medicine [address] [address] Name, MD Kiel Faxed Order Social History Tobacco Use Types Packs/Day Years Used Date Smoking Tobacco: Every Day Cigarettes 0.3 15 Smokeless Tobacco: Never Comments:resumed smoking.6 c ig a day Alcohol Use Standard Drinks/Week Comments No 0 (1 standard drink = 0.6 oz pur e alcohol) Sex Assigned at Date Recorded Not on file documented as of this encounter Miscellaneous Notes * Telephone Encounter - Adilia Orozco - 11/27/2013 10:03 AM EDT Please review BRUSH SANDER re-evaluation, sign and fax back to Soren at [phone]. documented in this encounter Plan of Treatment Not on file documented as of this encounter Visit Diagnoses Not on filedocumented in this encounter Care Teams Fork Operator Relationship Specialty Start Date End Date Name, MD Kiel PCP - General 05/26/09 04/27/15 Name, MD Kiel PCP - General Internal Medicine 04/28/15 05/05/15 Philly Vela DO PCP - General Internal Medicine 05/06/15 08/27/15 Name, MD Kiel PCP - General Internal Medicine 08/28/15 documented as of this encounter
--- OUTSIDE RECORDS SUMMARY | 2024-07-04 12:11 | XMS_ITS | Encounter Summary ---
Author Organization [facility] Address [address] [place] [address] Care Team Providers Care Sports Management Professor Name Role Phone Name, Kiel BAILEY Primary Care Provider Unavailabl e Name, Kiel BAILEY Primary Care Provider Unavailabl e Philly Vela DO Primary Care Pro vider Unavailable Name, Kiel BAILEY Primary Care Provider Unavailabl e Encounter Details Date Type Department Care Team Description 04/19/2010 Hospital Medical Records [address] [place] [address] Suze Marlow MD Social History Tobacco Use Types Packs/Day [...] on filedocumented in this encounter Care Teams Sports Management Professor Relationship Specialty Start Date End Date Kiel Shaffer MD PCP - General 05/26/09 04/27/15 Kiel Shaffer MD PCP - General Internal Medicine 04/28/15 05/05/15 Philly Vela DO PCP - General Internal Medicine 05/06/15 08/27/15 Kiel Shaffer MD PCP - General Internal Medicine 08/28/15 documented as of this encounter
--- OUTSIDE RECORDS SUMMARY | 2024-07-04 12:11 | XMS_ITS | Encounter Summary ---
Author Organization [facility] Address [address] [place] [address] Care Team Providers Care Blasting Miner Name Role Phone Name, Kiel BAILEY Primary Care Provider Unavailabl e Name, Kiel BAILEY Primary Care Provider Unavailabl e Philly Vela DO Primary Care Pro vider Unavailable Name, Kiel BAILEY Primary Care Provider Unavailabl e Encounter Details Date Type Department Care Team Description 09/02/2010 Spiral Spring Winder Report Medical Records [address] [place] [address] Shon Blanca Social History Tobacco Use Types [...] on filedocumented in this encounter Care Teams Blasting Miner Relationship Specialty Start Date End Date Deena, MD Kiel PCP - General 05/26/09 04/27/15 Kiel Shaffer MD PCP - General Internal Medicine 04/28/15 05/05/15 Philly Vela DO PCP - General Internal Medicine 05/06/15 08/27/15 Kiel Shaffer MD PCP - General Internal Medicine 08/28/15 documented as of this encounter
--- OUTSIDE RECORDS SUMMARY | 2024-07-04 12:11 | XMS_ITS | Encounter Summary ---
[facility] Address [address] [place] [address] Care Team Providers Care Mill Tender Warm Up Name Role Phone Name, Kiel BAILEY Primary Care Provider Unavailabl e Name, Kiel BAILEY Primary Care Provider Unavailabl e Philly Vela DO Primary Care Pro vider Unavailable Name, Kiel BAILEY Primary Care Provider Unavailabl e Encounter Details Date Type Department Care Team Description 07/31/2013 Rubber Stamp Dies Inspector Report Medical Records [address] [place] [address] Quinton Luther Social History Tobacco Use Types [...] on filedocumented in this encounter Care Teams Mill Tender Warm Up Relationship Specialty Start Date End Date Kiel Shaffer MD PCP - General 05/26/09 04/27/15 Kiel Shaffer MD PCP - General Internal Medicine 04/28/15 05/05/15 Philly Vela DO PCP - General Internal Medicine 05/06/15 08/27/15 Kiel Shaffer MD PCP - General Internal Medicine 08/28/15 documented as of this encounter
--- OUTSIDE RECORDS SUMMARY | 2024-07-04 12:11 | XMS_ITS | Encounter Summary ---
Author Organization [facility] Address [address] [place] [address] Care Team Providers Care Hop Trainer Name Role Phone Name, Kiel BAILEY Primary Care Provider Unavailabl e Name, Kiel BAILEY Primary Care Provider Unavailabl e Philly Vela DO Primary Care Pro vider Unavailable Name, Kiel BAILEY Primary Care Provider Unavailabl e Encounter Details Date Type Department Care Team Description 11/12/2009 Controlled Substance Contract with Plan Medical Records [address] [place] [address] Abstract, Provider Social History Tobacco Use Types [...] on filedocumented in this encounter Care Teams Hop Trainer Relationship Specialty Start Date End Date Kiel Shaffer MD PCP - General 05/26/09 04/27/15 Kiel Shaffer MD PCP - General Internal Medicine 04/28/15 05/05/15 Philly Vela DO PCP - General Internal Medicine 05/06/15 08/27/15 Kiel Shaffer MD PCP - General Internal Medicine 08/28/15 documented as of this encounter
--- OUTSIDE RECORDS SUMMARY | 2024-07-04 12:11 | XMS_ITS | Encounter Summary ---
Author Organization [facility] Address [address] [place] [address] Care Team Providers Care Space Studies Faculty Member Name Role Phone Name, Kiel BAILEY Primary Care Provider Unavailabl e Name, Kiel BAILEY Primary Care Provider Unavailabl e Philly Vela DO Primary Care Pro vider Unavailable Name, Kiel BAILEY Primary Care Provider Unavailabl e Encounter Details Date Type Department Care Team Description 12/11/2009 Director Clinical Research Report Medical Records [address] [place] [address] Gonzalo Valles MD Social History Tobacco Use [...] on filedocumented in this encounter Care Teams Space Studies Faculty Member Relationship Specialty Start Date End Date Kiel Shaffer MD PCP - General 05/26/09 04/27/15 Kiel Shaffer MD PCP - General Internal Medicine 04/28/15 05/05/15 Philly Vela DO PCP - General Internal Medicine 05/06/15 08/27/15 Kiel Shaffer MD PCP - General Internal Medicine 08/28/15 documented as of this encounter
--- OUTSIDE RECORDS SUMMARY | 2024-07-04 12:11 | XMS_ITS | Encounter Summary ---
Author Organization [employer] Address [address] [place] [address] 7t [place] [address] Care Team Providers Care Server Engineer Name Role Phone Name, Kiel BAILEY Primary Care Provider [phone] Katlyn Rodriguez PharmD Unavailable [phone] Encounter Details Date Type Department Care Team (Late Contact Info) Description 10/29/[address] [address] Name, MD Kiel [address] [place] [address] Social History Tobacco Use Types Packs/Day Years [...] Description 07/12/2024 9:30 AM EDT Medication Management [facility] [address] [place] [address] AdeniaKatlyn, PharmD [address] [place] [address] 07/27/2024 10:00 AM EDT Office Visit [facility] [place] [address] [place] [address] 08/20/2024 9:30 AM EDT Clinical Support [facility] [place] [address] Opal Steiner, RN documented as of this [...] documented as of this encounter Care Teams Server Engineer Relationship Specialty Start Date End Date Name, [place] [address] PCP - General Family Medicine 07/15/15 Puia, [place], [place] [address] Pharmacist Internal Medicine 10/08/22 Marta Ovalle Tax Manager CpaAirport Location Manager 05/25/23 documented as of this encounter
--- OUTSIDE RECORDS SUMMARY | 2024-07-04 12:11 | XMS_ITS | Encounter Summary ---
Author Organization [employer] Address [address] [facility] 7t [place] [address] Care Team Providers Care Compressor Battery Pellets Name Role Phone Name, Kiel BAILEY Primary Care Provider [phone] Katlyn Rodriguez PharmD Unavailable [phone] Reason for Visit * Reason Onset Date Comments Durable Medical Equipment 12/06/2022 Encounter Details Date Type Department Care Team ([facility] st Contact Info) Description 12/06/2022 Telephone [facility] [address] [place] [address] Name, MD Kiel [address] [place] [address] Durable Medical Equipment Social History Tobacco Use [...] to message above. Please contact pt at [phone] (Romansh) * Telephone Encounter - Jean-Paul Finch - 12/06/2022 3:29 PM EDT Tc from pt requesting status on some bed absorbant pads to not stain bed. Please contact pt at [phone] Romansh Speaker documented in this encounter Plan of Treatment Upcoming Encounters Date Type Department Care Team (Late st Contact Info) Description 07/12/2024 9:30 AM EDT Medication Management [facility] [address] [place] [address] Katlyn Rodriguez, PharmD [address] [place] [address] 07/27/2024 10:00 AM EDT Office Visit [facility] [address] [place] [address] [place] [address] Name, MD Kiel [address] [place] [address] 08/20/2024 9:30 AM EDT Clinical Support [facility] [address] [place] [address] Opal Steiner, MARINA documented as of this [...] documented as of this encounter Care Teams Compressor Battery Pellets Relationship Specialty Start Date End Date Name, MD Kiel [address] [place] [address] PCP - General Family Medicine 07/15/15 Puia, Katlyn, PharmD [address] [place] [address] Pharmacist Internal Medicine 10/08/22 Marta Ovalle Shot ManMixed Livestock Farm Worker 05/25/23 documented as of this encounter
--- OUTSIDE RECORDS SUMMARY | 2024-07-04 12:11 | XMS_ITS | Encounter Summary ---
Author Organization [facility] Address [address] [place] [address] Care Team Providers Care Principal Technical Specialist Name Role Phone Name, Kile BAILEY Primary Care Provider Unavailabl e Name, Kiel BAILEY Primary Care Provider Unavailabl e Philly Vela DO Primary Care Pro vider Unavailable Name, Kiel BAILEY Primary Care Provider Unavailabl e Encounter Details Date Type Department Care Team Description 11/23/2009 Hospital Medical Records [address] [place] [address] Valencia Delvalle Social History Tobacco Use Types [...] on filedocumented in this encounter Care Teams Principal Technical Specialist Relationship Specialty Start Date End Date Kiel Shaffer MD PCP - General 05/26/09 04/27/15 Kiel Shaffer MD PCP - General Internal Medicine 04/28/15 05/05/15 Philly Vela DO PCP - General Internal Medicine 05/06/15 08/27/15 Kiel Shaffer MD PCP - General Internal Medicine 08/28/15 documented as of this encounter
--- OUTSIDE RECORDS SUMMARY | 2024-07-04 12:11 | XMS_ITS | Encounter Summary ---
Author Organization [facility] Address [address] [place] [address] Care Team Providers Care Region Manager Name Role Phone Name, Kiel BAILEY Primary Care Provider Unavailabl e Name, Kiel BAILEY Primary Care Provider Unavailabl e Philly Vela DO Primary Care Pro vider Unavailable Name, Kiel BAILEY Primary Care Provider Unavailabl e Encounter Details Date Type Department Care Team Description 12/25/2010 Eye Picking Supervisor Report Medical Records [address] [place] [address] Fei Armstrong Social History Tobacco Use Types [...] on filedocumented in this encounter Care Teams Region Manager Relationship Specialty Start Date End Date Deena, MD Kiel PCP - General 05/26/09 04/27/15 Kiel Shaffer MD PCP - General Internal Medicine 04/28/15 05/05/15 Philly Vela DO PCP - General Internal Medicine 05/06/15 08/27/15 Kiel Shaffer MD PCP - General Internal Medicine 08/28/15 documented as of this encounter
--- OUTSIDE RECORDS SUMMARY | 2024-07-04 12:11 | XMS_ITS | Encounter Summary ---
Author Organization [facility] Address [address] [place] [address] Care Team Providers Care Die Finisher Forging Name Role Phone Name, Kiel BAILEY Primary Care Provider Unavailabl e Name, Kiel BAILEY Primary Care Provider Unavailabl e Philly eVla DO Primary Care Pro vider Unavailable Name, Kiel BAILEY Primary Care Provider Unavailabl e Encounter Details Date Type Department Care Team Description 11/17/2013 Transfer Records Medical Records [address] [place] [address] Abstract, Provider Social History Tobacco Use Types [...] on filedocumented in this encounter Care Teams Die Finisher Forging Relationship Specialty Start Date End Date Kiel Shaffer MD PCP - General 05/26/09 04/27/15 Kiel Shaffer MD PCP - General Internal Medicine 04/28/15 05/05/15 Philly Vela DO PCP - General Internal Medicine 05/06/15 08/27/15 Kiel Shaffer MD PCP - General Internal Medicine 08/28/15 documented as of this encounter
--- OUTSIDE RECORDS SUMMARY | 2024-07-04 12:11 | XMS_ITS | Encounter Summary ---
Author Organization [employer] Address [address] [facility] 7t [place] [address] Care Team Providers Care Shoe Maker Name Role Phone Name, Kiel BAILEY Primary Care Provider [phone] Katlyn Rodriguez PharmD Unavailable [phone] Reason for Visit * Reason Onset Date Comments Durable Medical Equipment 06/29/2024 Encounter Details Date Type Department Care Team ([facility] st Contact Info) Description 06/29/2024 Telephone [facility] [address] [place] [address] Name, MD Kiel [address] [place] [address] Durable Medical Equipment Social History Tobacco Use [...] encounter Miscellaneous Notes * Telephone Encounter - Leny Toro - 06/29/2024 12:13 PM EDT RX for OT/PT eval and Wheel chair signed and faxed to [facility] . Confirmation received and sent to scan. If patient calls to check status on above, please advise them to contact [facility] at [phone] . * Telephone Encounter - Leny Toro - 06/29/2024 8:27 AM EDT Rx for electric wheelchair generated and sent to pcp for signature via D[employer]. Once signed, will fax to [facility] and scan into media. * Telephone Encounter - Leny Toro - 06/29/2024 8:27 AM EDT ----- Message from Kiel Shaffer MD sent at 06/28/2024 12:01 PM EDT ----- Hi, this patient needs prescription for electrical wheelchair documented in this encounter Plan of Treatment Upcoming Encounters Date Type Department Care Team (Late st Contact Info) Description 07/12/2024 9:30 AM EDT Medication Management [address] [address] Puia, Katlyn, PharmD [address] [place] [address] 07/27/2024 10:00 AM EDT Office Visit [address] [phone] Kiel Shaffer MD [address] [place] [address] 08/20/2024 9:30 AM EDT Clinical Support [address] [address] Opal Steiner, MARINA documented as of this [...] documented as of this encounter Care Teams Shoe Maker Relationship Specialty Start Date End Date Kiel Shaffer MD [address] [place] [address] PCP - General Family Medicine 07/15/15 Puia, Katlyn, PharmD [address] [place] [address] Pharmacist Internal Medicine 10/08/22 Marta Ovalle Header Machine OperatorBed Worker 05/25/23 documented as of this encounter
== END 2024-07-04 11:56 | disposition home or self-care (01) ==
LOC: HO.HPS 11:05
PROVIDERS: PCP Internal Medicine Geriatric Medicine; Visit Provider Internal Medicine
DX: G47.33 Obstructive sleep apnea (adult) (pediatric) (principal); G47.34 Idiopathic sleep related nonobstructive alveolar hypoventilation; J44.9 Chronic obstructive pulmonary disease, unspecified; F17.210 Nicotine dependence, cigarettes, uncomplicated; J98.4 Other disorders of lung; E66.9 Obesity, unspecified
CPT/HCPCS: 94010; 99214

== ENCOUNTER → 2024-07-04 11:05 | Outpatient (BNVA) | payer MEDICAID, SELFPAY | PROVIDERS: PCP Internal Medicine Geriatric Medicine; Visit Provider Internal Medicine | DX: G47.33 Obstructive sleep apnea (adult) (pediatric) (principal); J44.9 Chronic obstructive pulmonary disease, unspecified; J98.4 Other disorders of lung; G47.34 Idiopathic sleep related nonobstructive alveolar hypoventilation; E66.9 Obesity, unspecified; F17.210 Nicotine dependence, cigarettes, uncomplicated; Z68.41 Body mass index [BMI] 40.0-44.9, adult | CPT/HCPCS: 94010; 99212 ==

== ENCOUNTER 2024-07-06 08:58 | Outpatient (REF) | payer MEDICAID, SELFPAY ==
--- NOTE | ~2024-07-06 | XR_ITS ---
CLINICAL HISTORY: pain in thoracic spine --- Additional Notes or Special Instructions: WO 3 views thoracic spine Comparison: None Findings: Mild accentuation of dorsal kyphosis. Otherwise normal alignment with no subluxation. Vertebral body height is maintained. Degenerative changes in mid to lower thoracic spine. IMPRESSION: No acute findings. This document has been electronically signed by: Jennifer Madison MD on 07/06/2024 17:07:12
--- OUTSIDE RECORDS SUMMARY | 2024-07-06 09:12 | XMS_ITS | Clinical Summary ---
Author Organization [facility] Address [address] [place] [address] Phone Care Team Providers Care Molding Engineer Name Role Phone Name, Kiel BAILEY Primary Care Provider [phone] Allergies Active Allergy Reactions Criticality Noted Date [...] Problem Noted Date Diagnosed Date COPD exacerbation ([facility] V24, [facility] V28) Abnormal nuclear stress test 11/06/2014 Rib fracture 12/24/2013 Overview (12/12/2023): Non displaced, probable froacture on the right ninth and tenth Abdominal pain 08/15/2013 Lipoma of abdominal wall 11/02/2011 Visual field defect 03/29/2011 Cocaine abuse, episodic use ([facility] V24, [facility] V[facility]) 06/17/2010 Low back pain radiating to left leg 10/08/2009 Overview (12/12/2023): The patient follows with [facility] and is treated with injections to the LS. Asthmatic bronchitis , chronic ([facility] V24, [facility] V28) 07/07/2009 Overview (12/12/2023): Severe and worse in the spring. Last hospitalazion in May and 3 ER visits Hospital 08/02 Known medical problems 06/05/2009 Tobacco use disorder 06/05/2009 Hypertriglyceridemia 06/05/2009 Morbid obesity ([facility] V24, [facility] V28) 2009 Overview (12/12/2023): BMI [...] TOTAL HYSTERECTOMY WITH BSO; COMMENT: for bleeding, [facility] Medical History Medical History Date Comments Type II or unspecified type diabetes mellitus with unspecified complication, not stated as uncontrolled DX:Type II or unspecified t ype diabetes mellitus with unspecified complication, not stated as uncontrolled Unspecified essential hypertension DX:Unspecified essential hypertension Tobacco abuse DX:Tobacco abuse RAD (reactive airway disease) DX :RAD (reactive airway disease) Morbid obesity ([facility] V24, [facility] V28) DX:Morbid obesity (HCC) Asthmatic bronchitis , chron ic ([facility] V24, [facility] V28) 07/07/2009 DX:Asthmatic bronchitis , ch ronic ([facility]) Hypertriglyceridemia 06/05/2009 DX:Hypertri glyceridemia Rib fracture 12/24/2013 DX:Rib fracture Family History Medical History Relation Name Comments Blindness Brother 1 Breast cancer Maternal Grandmother Cataracts Maternal Grandmother Blindness Mother Glaucoma Neg Hx Macular degeneration Neg Hx Strabismus Neg Hx Relation Name Status Comments Brother 1 Brother 2 ID Brother 3 Alive 6 brothers are diabetic [...] AM EDT Office Visit [facility] [place] [address] [phone] Wesley Garcia, DPM [address] [address] Health Maintenance Due Date Last Done Comments [...] mmol/L LAB CHEMISTRY METHOD 02/06/2024 3:36 AM [facility] Potassium 4.1 3.5 - 5.5 mmol/L LAB CHEMISTRY METHOD 02/06/2024 3:36 AM [facility] Chloride 104 96 - 110 mmol/L LAB CHEMISTRY METHOD 02/06/2024 3:36 AM [facility] CO2 23 21 - 32 mmol/L LAB CHEMISTRY METHOD 02/06/2024 3:36 AM [facility] Anion Gap 9 3 - 11 LAB CHEMISTRY METHOD 02/06/2024 3:36 AM [facility] Glucose 244(H) 70 - 100 mg/dL LAB CHEMISTRY METHOD 02/06/2024 3:36 AM [facility] BUN 17 5 - 25 mg/dL LAB CHEMISTRY METHOD 02/06/2024 3:36 AM [facility] Creatinine 0.71 0.50 - 1.10 mg/dL LAB CHEMISTRY METHOD 02/06/2024 3:36 AM [facility] eGFR 99 >=60 mL/min/1. 73m2 LAB CHEMISTRY METHOD 02/06/2024 3:36 AM [facility] Comment:Calculation based on the??Chronic Kidney Disease Epidemiology Collaboration (CKD-EPI) equation refit??without adjustment for race. BUN/Creatinine Ratio 23.9 LAB CHEMISTRY METHOD 02/06/2024 3:36 AM [facility] Calcium 9.3 8.5 - 10.5 mg/dL LAB CHEMISTRY METHOD 02/06/2024 3:36 AM [facility] Blood Venous blood specimen / Unknown Venipuncture / Unknown 02/06/2024 2:59 AM EST 02/06/2024 3:13 AM EST us Cindy SEGURA LAB BLOOD ORDERABLES Final R esult [facility] [address] [place] [address], * (ABNORMAL) Hemoglobin A1c (11/20/2014) Pathologist [facility] Hemoglobin A1C 7.5(A) 4.0 - 6.0 % Blood Venous blood specimen / Unknown Historical Provider LAB BLOOD ORDERABLES Alis l Result * Urine Albumin Creatinine Ratio (05/10/2014) Pathologist [facility] Urine Albumin Creatinine Ratio abstracted Historical [...] currently active code status orders. Care Teams Molding Engineer Relationship Specialty Start Date End Date Name, MD Kiel [address] [place], [place] PCP - General Internal Medicine 08/28/15
--- OUTSIDE RECORDS SUMMARY | 2024-07-06 09:12 | XMS_ITS | Encounter Summary ---
Author Organization [employer] Address [address] [facility] 7t [place] [address] Care Team Providers Care Home Visitor Home Base Head Start Name Role Phone Name, Kiel BAILEY Primary Care Provider [phone] Katlyn Rodriguez PharmD Unavailable [phone] Encounter Details Date Type Department Care Team (Late st Contact Info) Description 08/26/2022 Orders Only [facility] [address] [place] [address] [phone] Leia Gonzales LPN Social History Tobacco Use [...] 9:30 AM EDT Medication Management [facility] [address] [place] [address] [phone] [place] [address] 07/27/2024 10:00 AM EDT Office Visit [address] [address] Name, MD Kiel [address] [place] [address] 08/20/2024 9:30 AM EDT Clinical Support [address] [address] Opal Steiner RN documented as of this encounter Visit Diagnoses Not on filedocumented in this encounter Additional Health Concerns Assessment Noted Time PHQ-9 Depression Total Score: 7 07/15/19 23 2:39 PM EDT documented as of this encounter Care Teams Home Visitor Home Base Head Start Relationship Specialty Start Date End Date Name, MD Kiel [address] [place] [phone] PCP - General Family Medicine 07/15/15 Katlyn Rodriguez, AngieD [address] [place] [address] Pharmacist Internal Medicine 10/08/22 Marta Ovalle Tile Setter SupervisorCarousel Attendant 05/25/23 documented as of this encounter
--- OUTSIDE RECORDS SUMMARY | 2024-07-06 09:12 | XMS_ITS | Encounter Summary ---
Author Organization [employer] Address [address] [facility] [address] [place] [address] Care Team Providers Care Line O Scribe Operator Name Role Phone Name, Kiel BAILEY Primary Care Provider [phone] Katlyn Rodriguez PharmD Unavailable [phone] Encounter Details Date Type Department Care Team ([facility] st Contact Info) Description 02/20/2024 Telephone [facility] [address] [place], [place] [phone] Name, MD Kiel [address] [place] [address] Social History Tobacco Use Types Packs/Day Years [...] 07/12/2024 9:30 AM EDT Medication Management [address] [address] PuiaReidKatlyn, PharmD [address] [place] [address] 07/27/2024 10:00 AM EDT Office Visit [address] [address] Name, MD Kiel [address] [place] [address] 08/20/2024 9:30 AM EDT Clinical Support [address] [address] Opal Steiner, MARINA documented as of this [...] documented as of this encounter Care Teams Line O Scribe Operator Relationship Specialty Start Date End Date Name, MD Kiel [address] [place] [address] PCP - General Family Medicine 07/15/15 Katlyn Rodriguez PharmD [address] [place] [address] Pharmacist Internal Medicine 10/08/22 Marta Ovalle Spooler OperatorBreaker Operator 05/25/23 documented as of this encounter
--- OUTSIDE RECORDS SUMMARY | 2024-07-06 09:12 | XMS_ITS | Encounter Summary ---
Author Organization [email or web address] Address [address] [place] [address] Care Team Providers Care Pharmacist Manager Name Role Phone Name, Kiel BAILEY Primary Care Provider [phone] Katlyn Rodriguez PharmD Unavailable [phone] Encounter Details Date Type Department Care Team ([facility] st Contact Info) Description 05/01/2024 Telephone [facility] [address] [place], [place] [phone] Name, MD Kiel [address] [place] [address] Social History Tobacco Use Types Packs/Day Years [...] 07/12/2024 9:30 AM EDT Medication Management [address] [address] Katlyn Rodriguez, PharmD [address] [place] [address] 07/27/2024 10:00 AM EDT Office Visit [address] [address] Name, MD Kiel [address] [place] [address] 08/20/2024 9:30 AM EDT Clinical Support [address] [address] Opal Steiner, RN documented as of this [...] documented as of this encounter Care Teams Pharmacist Manager Relationship Specialty Start Date End Date Name, MD Kiel [address] [place] [address] PCP - General Family Medicine 07/15/15 Puia, Katlyn, PharmD [address] [place] [address] Pharmacist Internal Medicine 10/08/22 Marta Ovalle Plant TaxonomistTransformer Coil Winder 05/25/23 documented as of this encounter
--- OUTSIDE RECORDS SUMMARY | 2024-07-06 09:12 | XMS_ITS | Encounter Summary ---
Author Organization [facility] Address [address] [place] [address] Care Team Providers Care Ceo And President Name Role Phone Name, Kiel BAILEY Primary Care Provider Encounter Details Date Type Department Care Team (Late st Contact Info) Description 11/24/2023 9:53 AM EDT Hospital Encounter TH HISTORIC ENCOUNTERS EASTERN CONVERSION ONLY Geoffrey-Art Vitale MD [address] [place] [address] Social History Tobacco Use Types [...] 2:17 PM Encounter Date: 11/24/2023 Status: Signed Electrician Shop: Art Davis MD (Physician) CHIEF COMPLAINT: Chief Complaint Patient presents with ? Follow-up Diffuse large B-cell lymphoma Stage III Completed 6 cycles of R-CHOP in July 23, 2018 IDENTIFIER:Sarita Puga is a 58 y.o. female. HPI: The patient returns for follow up of Large B-cell lymphoma. Here with her daughter , who is [place] to [place] guine[place] race car mechanic Patient reports that she has been doing [...] accompanied by her daughter and girlfriend. As Turkmen to [place]o race car mechanic assisted with the discussion. She had a [...] AM EDT Office Visit Orth[facility] Surgery - [place] [address] [phone] Wesley Garcia DPM [address] [address] documented as of this encounter Procedures Procedure [...] documented as of this encounter Care Teams Ceo And President Relationship Specialty Start Date End Date Name, MD Kiel [address] [place], [place] PCP - General Internal Medicine 08/28/15 documented as of this encounter
--- OUTSIDE RECORDS SUMMARY | 2024-07-06 09:12 | XMS_ITS | Encounter Summary ---
Author Organization [facility] Address [address] [place] [address] Care Team Providers Care Wraparound Facilitator Name Role Phone Name, Kiel BAILEY Primary Care Provider [phone] Encounter Details Date Type Department Care Team (Late Contact Info) Description 11/24/2023 10:30 AM EDT Hospital Encounter TH HISTORIC ENCOUNTERS EASTERN CONVERSION ONLY Geoffrey-Art Vitale MD [address] [place] [phone] Social History Tobacco Use Types Packs/Day Years [...] 9:45 AM EDT Office Visit Orthopedic Surgery [facility] [address] [facility] [address] [place] [phone] Wesley Garcia, DPM [address] [facility] [address] [place] [address] documented as of this encounter Visit Diagnoses Not on filedocumented in this encounter Additional Health Concerns Infection Onset Date Last Indicated Resolved Time Respiratory Rule-Out 02/05/2024 02/05/2024 024 8:09 AM EST COVID-19 Rule-Out 02/05/2024 02/05/2024 02/05/2024 8:09 AM EST documented as of this encounter Care Teams Wraparound Facilitator Relationship Specialty Start Date End Date Name, MD Kiel [address] [place], [place] PCP - General Internal Medicine 08/28/15 documented as of this encounter
--- OUTSIDE RECORDS SUMMARY | 2024-07-06 09:13 | XMS_ITS | Encounter Summary ---
Author Organization [employer] Address [address] [place] [address] [address] [place] [address] Care Team Providers Care Welfare Eligibility Worker Name Role Phone Name, Kiel BAILEY Primary Care Provider [phone] Katlyn Rodriguez PharmD Unavailable [phone] Reason for Visit * Reason Comments Med Refill Encounter Details Date Type Department Care Team (Late st Contact Info) Description 07/16/2022 Refill [facility] [address] [place], [place] [phone] Name, MD Kiel [address] [place] [address] Chronic pain syndrome Social History Tobacco Use [...] 07/12/2024 9:30 AM EDT Medication Management [address] [address] Katlyn Rodriguez PharmD [address] [place] [phone] 07/27/2024 10:00 AM EDT Office Visit [address] [address] Name, MD Kiel [address] [place] [address] 08/20/2024 9:30 AM EDT Clinical Support [address] [address] Opal Steiner, RN documented as of this encounter Visit Diagnoses Diagnosis Chronic pain syndrome documented in this encounter Additional Health Concerns Assessment Noted Time PHQ-9 Depression Total Score: 7 07/15/19 23 2:39 PM EDT documented as of this encounter Care Teams Welfare Eligibility Worker Relationship Specialty Start Date End Date Name, MD Kiel [address] [place] [address] PCP - General Family Medicine 07/15/15 Katlyn Rodriguez PharmD [address] [place] [phone] Pharmacist Internal Medicine 10/08/22 Marta Ovalle Process Development EngineerBody Press Operator 05/25/23 documented as of this encounter
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
--- OUTSIDE RECORDS SUMMARY | 2024-07-06 09:13 | XMS_ITS | Clinical Summary ---
Author Organization [facility] Address [address] [place] [address] Care Team Providers Care Accounts Payable Lead Name Role Phone Name, Kiel BAILEY Primary Care Provider [phone] Allergies Active Allergy Reactions Criticality Noted Date [...] age to complete this topic Care Teams Accounts Payable Lead Relationship Specialty Start Date End Date Name, MD Kiel 230 [facility] [place] [address] [place] [address] PCP - General Internal Medicine 04/17/18
--- OUTSIDE RECORDS SUMMARY | 2024-07-06 09:13 | XMS_ITS | Encounter Summary ---
Author Organization [employer] Address [address] [place] [address] 7t [place] [address] Care Team Providers Care Warping Machine Operator Name Role Phone Name, Kiel BAILEY Primary Care Provider [phone] Katlyn Rodriguez PharmD Unavailable [phone] Reason for Visit * Reason Comments Med Refill Encounter Details Date Type Department Care Team (Late st Contact Info) Description 06/28/2022 Refill [facility] [address] [place] [address] Name, MD Kiel [address] [place] [address] Chronic pain syndrome Social History Tobacco Use [...] Upcoming Encounters Date Type Department Care Team ([facility] Contact Info) Description 07/12/2024 9:30 AM EDT Medication Management [facility] [address] [place] [address] Katlyn Rodriguez PharmD [address] [place] [address] 07/27/2024 10:00 AM EDT Office Visit [address] [address] Name, MD Kiel [address] [place] [address] 08/20/2024 9:30 AM EDT Clinical Support [address] [address] Opal Steiner RN documented as of this encounter Visit Diagnoses Diagnosis Chronic pain syndrome documented in this encounter Care Teams Warping Machine Operator Relationship Specialty Start Date End Date Name, MD Kiel [address] [place] [address] PCP - General Family Medicine 07/15/15 Katlyn Rodriguez, PharmD [address] [place] [address] Pharmacist Internal Medicine 10/08/22 Marta Ovalle Electric Motor Repair SupervisorDerrick Helper 05/25/23 documented as of this encounter
--- OUTSIDE RECORDS SUMMARY | 2024-07-06 09:13 | XMS_ITS | Encounter Summary ---
Author Organization [employer] Address [address] [facility] 7t [place] [address] Care Team Providers Care Digital Media Buyer Name Role Phone Name, Kiel BAILEY Primary Care Provider [phone] Katlyn Rodriguez PharmD Unavailable [phone] Reason for Visit * Reason Onset Date Comments Durable Medical Equipment 12/06/2022 Encounter Details Date Type Department Care Team ([facility] st Contact Info) Description 12/06/2022 Telephone [facility]INE [address] [place] [address] Name, MD Kiel [address] [place] [address] Durable Medical Equipment Social History Tobacco Use [...] to message above. Please contact pt at [phone] (Slovak) * Telephone Encounter - Jean-Paul Finch - 12/06/2022 3:29 PM EDT Tc from pt requesting status on some bed absorbant pads to not stain bed. Please contact pt at [phone] Slovak Speaker documented in this encounter Plan of Treatment Upcoming Encounters Date Type Department Care Team (Late st Contact Info) Description 07/12/2024 9:30 AM EDT Medication Management [facility]INE [address] [place] [address] Katlyn Rodriguez, PharmD 230 [place] [address] 07/27/2024 10:00 AM EDT Office Visit [facility] [address] [place] [address] [place] [address] Name, MD Kiel [address] [place] [address] 08/20/2024 9:30 AM EDT Clinical Support [facility] [address] [place] [address] Opal Steiner, MARINA documented as of this [...] documented as of this encounter Care Teams Digital Media Buyer Relationship Specialty Start Date End Date Name, MD Kiel [address] [place] [address] PCP - General Family Medicine 07/15/15 Puia, Katlyn, PharmD [address] [place] [address] Pharmacist Internal Medicine 10/08/[address] TechnologistTransonic Engineer 05/25/23 documented as of this encounter
--- OUTSIDE RECORDS SUMMARY | 2024-07-06 09:13 | XMS_ITS | Encounter Summary ---
Author Organization [employer] Address [address] [place] [address] 7t [place] [address] Care Team Providers Care Automatic Profile Shaper Operator Name Role Phone Name, Kiel BAILEY Primary Care Provider [phone] Katlyn Rodriguez PharmD Unavailable [phone] Encounter Details Date Type Department Care Team (Late Contact Info) Description 07/01/2022 Abstract [facility] MEDICINE [address] [place] [address] Name, MD Kiel [address] [place] [address] Social History Tobacco Use Types Packs/Day Years [...] Upcoming Encounters Date Type Department Care Team ([facility] Contact Info) Description 07/12/2024 9:30 AM EDT Medication Management [facility] MEDICINE [address] [place] [address] Katlyn Rodriguez PharmD [address] [place] [address] 07/27/2024 10:00 AM EDT Office Visit [address] [address] Name, MD Kiel [address] [place] [address] 08/20/2024 9:30 AM EDT Clinical Support [address] [address] Opal Steiner, MARINA documented as of this encounter Visit Diagnoses Not on filedocumented in this encounter Care Teams Automatic Profile Shaper Operator Relationship Specialty Start Date End Date Name, MD Kiel [address] [place] [address] PCP - General Family Medicine 07/15/15 Katlyn Rodriguez, PharmD [address] [place] [address] Pharmacist Internal Medicine 10/08/22 Marta Ovalle Pinion StakerGeological E Logger 05/25/23 documented as of this encounter
--- OUTSIDE RECORDS SUMMARY | 2024-07-06 09:13 | XMS_ITS | Encounter Summary ---
Author Organization [facility] Address [address] [place] [address] Care Team Providers Care Cigar Making Supervisor Name Role Phone Name, Kiel BAILEY Primary Care Provider [phone] Encounter Details Date Type Department Care Team Description 09/10/2022 Social Work [facility] Oncology Services [address] [place] [address] Adina Archer, [facility] Social History Tobacco Use Types Packs/Day Years [...] on filedocumented in this encounter Care Teams Cigar Making Supervisor Relationship Specialty Start Date End Date Name, MD Kiel [address] [place] [address] [address] [place] [address] PCP - General Internal Medicine 04/17/18 documented as of this encounter
--- OUTSIDE RECORDS SUMMARY | 2024-07-06 09:13 | XMS_ITS | Encounter Summary ---
Author Organization [employer] Address 75 [facility] 7t [place] [address] Care Team Providers Care Socket Puller Name Role Phone Name, Kiel BAILEY Primary Care Provider Katlyn Rodriguez PharmD Unavailable [phone] Reason for Visit * Reason Onset Date Comments Appointment Request 02/29/2024 Encounter Details Date Type Department Care Team ([facility] st Contact Info) Description 02/29/2024 Telephone [facility] MED[facility]INE [address] [place] [address] Name, MD Kiel [address] [place] [address] Appointment Request Social History Tobacco Use Types [...] different date and time. Pt does speak chinese so you will need an park interpreter. documented in this encounter Plan of Treatment Upcoming Encounters Date Type Department Care Team (Late st Contact Info) Description 07/12/2024 9:30 AM EDT Medication Management [address] [address] Katlyn Rodriguez, PharmD [address] [place] [address] 07/27/2024 10:00 AM EDT Office Visit [address] [address] Name, MD Kiel [address] [place] [address] 08/20/2024 9:30 AM EDT Clinical Support [address] [address] Opal Steiner, RN documented as of this [...] documented as of this encounter Care Teams Socket Puller Relationship Specialty Start Date End Date Name, MD Kiel [address] [place] [address] PCP - General Family Medicine 07/15/15 Puia, Katlyn, PharmD [address] [place] [address] Pharmacist Internal Medicine 10/08/22 Marta Ovalle Claims AdjustorBack Up Scan Coordinator 05/25/23 documented as of this encounter
--- OUTSIDE RECORDS SUMMARY | 2024-07-06 09:13 | XMS_ITS | Encounter Summary ---
Author Organization [employer] Address 75 [facility] 7t [place] [address] Care Team Providers Care Forensic Examiner Name Role Phone Name, Kiel BAILEY Primary Care Provider [phone] Katlyn Rodriguez PharmD Unavailable [phone] Reason for Visit * Reason Onset Date Comments Medication Problem 08/30/2023 Encounter Details Date Type Department Care Team ([facility] st Contact Info) Description 08/30/2023 Telephone [facility] MED[facility]INE [address] [place] [address] Name, MD Kiel [address] [place] [address] Medication Problem Social History Tobacco Use Types [...] Description 07/12/2024 9:30 AM EDT Medication Management [address] [address] Katlyn Rodriguez PharmD [address] [place] [address] 07/27/2024 10:00 AM EDT Office Visit [address] [address] Name, MD Kiel [address] [place] [address] 08/20/2024 9:30 AM EDT Clinical Support [address] [address] Opal Steiner, MARINA documented as of this [...] documented as of this encounter Care Teams Forensic Examiner Relationship Specialty Start Date End Date Name, MD Kiel [address] [place] [address] PCP - General Family Medicine 07/15/15 Katlyn Rodriguez, PharmD [address] [place] [address] Pharmacist Internal Medicine 10/08/22 Marta Ovalle Feed Elevator WorkerControl Systems Technician 05/25/23 documented as of this encounter
--- OUTSIDE RECORDS SUMMARY | 2024-07-06 09:13 | XMS_ITS | Encounter Summary ---
Author Organization [employer] Address [address] [facility] 7t [place] [address] Care Team Providers Care Logistics Engineering Manager Name Role Phone Name, Kiel BAILEY Primary Care Provider [phone] Katlyn Rodriguez PharmD Unavailable [phone] Reason for Visit * Reason Comments Med Refill Encounter Details Date Type Department Care Team ([facility] st Contact Info) Description 06/27/2023 Refill [facility] MED[facility]INE [address] [place] [address] AdeniaKatlyn, PharmD [address] [place], [place] [phone] Tobacco use disorder Social History Tobacco Use [...] 07/12/2024 9:30 AM EDT Medication Management [address] [address] Puia, Katlyn, PharmD [address] [place] [address] 07/27/2024 10:00 AM EDT Office Visit [address] [address] Name, MD Kiel [address] [place] [address] 08/20/2024 9:30 AM EDT Clinical Support [address] [address] Opal Steiner, MARINA documented as of this [...] documented as of this encounter Care Teams Logistics Engineering Manager Relationship Specialty Start Date End Date Name, MD Kiel [address] [place] [address] PCP - General Family Medicine 07/15/15 Katlyn Rodriguez, Bin [address] [place] [address] Pharmacist Internal Medicine 10/08/22 Marta Ovalle Deputy County ClerkGalley Stripper 05/25/23 documented as of this encounter
--- OUTSIDE RECORDS SUMMARY | 2024-07-06 09:13 | XMS_ITS | Encounter Summary ---
Author Organization [employer] Address [address] [facility] 7t [place] [address] Care Team Providers Care Furnace Firer Name Role Phone Name, Kiel BAILEY Primary Care Provider [phone] Katlyn Rodriguez PharmD Unavailable [phone] Encounter Details Date Type Department Care Team ([facility] Contact Info) Description 03/12/2022 Orders Only [facility]S [address] [place], [place] [phone] Millie Sawant LPN Social History Tobacco Use [...] Upcoming Encounters Date Type Department Care Team ([facility] Contact Info) Description 07/12/2024 9:30 AM EDT Medication Management [facility] [address] [place], [place] [phone] Katlyn Rodriguez, PharmD [address] [place], [place] [phone] 07/27/2024 10:00 AM EDT Office Visit [address] [address] Name, MD [facility] [place] [address] 08/20/2024 9:30 AM EDT Clinical Support [address] [address] Opal Steiner, MARINA documented as of this encounter Visit Diagnoses Not on filedocumented in this encounter Care Teams Furnace Firer Relationship Specialty Start Date End Date Name, [place] [address] PCP - General Family Medicine 07/15/15 Katlyn Rodriguez PharmD [address] [place] [address] Pharmacist Internal Medicine 10/08/22 Marta Ovalle VaritypistTax Specialist 05/25/23 documented as of this encounter
--- OUTSIDE RECORDS SUMMARY | 2024-07-06 09:13 | XMS_ITS | Encounter Summary ---
Author Organization [employer] Address 75 [facility] 7t [place] [address] Care Team Providers Care Paper Cone Machine Operator Name Role Phone Name, Kiel BAILEY Primary Care Provider [phone] Katlyn Rodriguez PharmD Unavailable [phone] Reason for Visit * Reason Comments Med Refill Encounter Details Date Type Department Care Team ([facility] st Contact Info) Description 06/08/2024 Refill [facility] [address] [place], [place] [id number] Name, MD Kiel [address] [place] [address] Chronic pain syndrome Social History Tobacco Use [...] is your housing situation today? I have sihrin jackson 09/02/[address] you [...] Description 07/12/2024 9:30 AM EDT Medication Management [address] [address] PuiaReidKatlyn, PharmD [address] [place] [address] 07/27/2024 10:00 AM EDT Office Visit [address] [address] Name, MD Kiel [address] [place] [address] 08/20/2024 9:30 AM EDT Clinical Support [address] [address] Opal Steiner RN documented as of this [...] documented as of this encounter Care Teams Paper Cone Machine Operator Relationship Specialty Start Date End Date Name, MD Kiel [address] [place] [address] PCP - General Family Medicine 07/15/15 Katlyn Rodriguez, PharmD [address] [place] [address] Pharmacist Internal Medicine 10/08/22 Marta Ovalle Watch Guard GateSupervisor Photoengraving 05/25/23 documented as of this encounter
--- OUTSIDE RECORDS SUMMARY | 2024-07-06 09:13 | XMS_ITS | Encounter Summary ---
Author Organization [employer] Address 75 [facility] 7t [place] [address] Care Team Providers Care Rn New Graduate Name Role Phone Name, Kiel BAILEY Primary Care Provider [phone] Katlyn Rodriguez PharmD Unavailable [phone] Reason for Visit * Reason Comments Med Refill Encounter Details Date Type Department Care Team ([facility] st Contact Info) Description 06/08/2024 Refill [facility] [address] [place], [place] [phone] Name, MD Kiel [address] [place] [address] Chronic pain syndrome Social History Tobacco Use [...] Description 07/12/2024 9:30 AM EDT Medication Management [address] [address] PuiaReidKatlyn, PharmD [address] [place] [address] 07/27/2024 10:00 AM EDT Office Visit [address] [address] Name, MD Kiel [address] [place] [address] 08/20/2024 9:30 AM EDT Clinical Support [address] [address] Opal Steiner RN documented as of this [...] documented as of this encounter Care Teams Rn New Graduate Relationship Specialty Start Date End Date Name, MD Kiel [address] [place] [address] PCP - General Family Medicine 07/15/15 Katlyn Rodriguez, PharmD [address] [place] [address] Pharmacist Internal Medicine 10/08/22 Marta Ovalle ScratcherRanch Supervisor 05/25/23 documented as of this encounter
--- OUTSIDE RECORDS SUMMARY | 2024-07-06 09:13 | XMS_ITS | Encounter Summary ---
Author Organization [employer] Address 75 [facility] 7t [place] [address] Care Team Providers Care Cardiology Rn Name Role Phone Name, Kiel BAILEY Primary Care Provider [phone] Katlyn Rodriguez PharmD Unavailable [phone] Reason for Visit * Reason Onset Date Comments Durable Medical Equipment 01/24/2023 Encounter Details Date Type Department Care Team ([facility] st Contact Info) Description 01/24/2023 Telephone [facility] [address] [place] [address] Name, MD Kiel [address] [place] [address] Durable Medical Equipment Social History Tobacco Use [...] to errol. Any questions, contact pt at [phone] documented in this encounter Plan of Treatment Upcoming Encounters Date Type Department Care Team (Late st Contact Info) Description 07/12/2024 9:30 AM EDT Medication Management [address] [address] Katlyn Rodriguez PharmD [address] [place] [address] 07/27/2024 10:00 AM EDT Office Visit [address] [address] Name, MD Kiel [address] [place] [address] 08/20/2024 9:30 AM EDT Clinical Support [address] [phone] Opal Steiner, RN documented as of this [...] documented as of this encounter Care Teams Cardiology Rn Relationship Specialty Start Date End Date Name, MD Kiel [address] [place] [address] PCP - General Family Medicine 07/15/15 Katlyn Rodriguez, PharmD [address] [place] [address] Pharmacist Internal Medicine 10/08/22 Marta Ovalle Trauma Program ManagerSurfacing Machine Operator 05/25/23 documented as of this encounter
--- OUTSIDE RECORDS SUMMARY | 2024-07-06 09:13 | XMS_ITS | Encounter Summary ---
Author Organization [employer] Address [address] [place] [address] 7t [place] [address] Care Team Providers Care Armature Varnisher Name Role Phone Name, Kiel BAILEY Primary Care Provider [phone] Katlyn Rodriguez PharmD Unavailable [phone] Encounter Details Date Type Department Care Team ([facility] Contact Info) Description 02/23/2022 Orders Only [facility] [address] [place] [address] Name, MD Kiel 230 [place] [address] Social History Tobacco Use Types Packs/Day Years [...] [facility] Contact Info) Description 07/12/2024 9:30 AM EDT Medication Management [facility] MEDICINE [address] [place], [place] [phone] PuiaReidKatlyn, PharmD [address] [place] [address] 07/27/2024 10:00 AM EDT Office Visit [address] [address] Name, [place] [address] 08/20/2024 9:30 AM EDT Clinical Support [address] [address] Opal Steiner, MARINA documented as of this encounter Visit Diagnoses Not on filedocumented in this encounter Care Teams Armature Varnisher Relationship Specialty Start Date End Date Name, MD Kiel [address] [place] [address] PCP - General Family Medicine 07/15/15 Katlyn Rodriguez PharmD [address] [place] [address] Pharmacist Internal Medicine 10/08/22 Marta Ovalle High RiggerBody Shop Mechanic 05/25/23 documented as of this encounter
--- OUTSIDE RECORDS SUMMARY | 2024-07-06 09:13 | XMS_ITS | Encounter Summary ---
Author Organization [employer] Address [address] [place] [address] 7t [place] [address] Care Team Providers Care Biometrics Consultant Name Role Phone Name, Kiel BAILEY Primary Care Provider [phone] Katlyn Rodriguez PharmD Unavailable [phone] Reason for Visit * Reason Comments Med Refill Encounter Details Date Type Department Care Team ([facility] Contact Info) Description 02/10/2022 Refill [facility] MED & PEDS [address] [place], [place] [phone] Name, MD Kiel 230 [place] [address] Chronic pain syndrome (Primary Dx) Social History [...] Date Type Department Care Team ([facility] Contact Info) Description 07/12/2024 9:30 AM EDT Medication Management [facility] MEDICINE [address] [place] [address] Katlyn Rodriguez PharmD [address] [place] [address] 07/27/2024 10:00 AM EDT Office Visit [address] [address] Name, MD Kiel [address] [place] [address] 08/20/2024 9:30 AM EDT Clinical Support [address] [address] Opal Steiner RN documented as of this encounter Visit Diagnoses Diagnosis Chronic pain syndrome- Primary documented in this encounter Care Teams Biometrics Consultant Relationship Specialty Start Date End Date Name, MD Kiel [address] [place] [address] PCP - General Family Medicine 07/15/15 Katlyn Rodriguez, AngieD [address] [place] [address] Pharmacist Internal Medicine 10/08/22 Marta Ovalle Polisher Balance ScrewheadYard Laborer 05/25/23 documented as of this encounter
--- OUTSIDE RECORDS SUMMARY | 2024-07-06 09:13 | XMS_ITS | Encounter Summary ---
Author Organization [employer] Address 75 [facility] 7t [place] [address] Care Team Providers Care Water And Sewer Systems Superintendent Name Role Phone Name, Kiel BAILEY Primary Care Provider [phone] Katlyn Rodriguez PharmD Unavailable [phone] Reason for Visit * Reason Onset Date Comments Nurse Triage 07/04/2024 Encounter Details Date Type Department Care Team ([facility] st Contact Info) Description 07/04/2024 Telephone [facility] MEDICINE [address] [place] [address] Name, MD Kiel [address] [place] [address] Nurse Triage Social History Tobacco Use Types [...] 07/04/2024 11:25 AM EDT Triage call with [facility] Wrecking Crane Engine Operator [place] [id number]. Pt reports headache over the entire head. No involvement with eye area. BP is 104/60. Pt has been seen by neurologist at [facility] and is being tested for possible tumor. Pt was prescribed dexamethasone byneurologist. Pt pain is moderate . Pt has been prescribed roxicodone 10mg starting 06/28/24 but, reports pharmacy wouldn't fill prescription last time contacted. Pt daughter is speaking for Pt at this time. Daughter is advised to call [facility] for prescription of roxicodone which should [...] caller accepted this outcome. Contact pt at [phone] (bulgarian) documented in this encounter Plan of Treatment Upcoming Encounters Date Type Department Care Team ([facility] st Contact Info) Description 07/12/2024 9:30 AM EDT Medication Management [address] [address] Puia, Katlyn, PharmD [address] [place] [address] 07/27/2024 10:00 AM EDT Office Visit [address] [address] Name, MD Kiel [address] [place] [address] 08/20/2024 9:30 AM EDT Clinical Support [address] [address] Opal Steiner, MARINA documented as of this [...] documented as of this encounter Care Teams Water And Sewer Systems Superintendent Relationship Specialty Start Date End Date Name, MD Kiel 230 [place] [address] PCP - General Family Medicine 07/15/15 Katlyn Rodriguez PharmD [address] [place] [address] Pharmacist Internal Medicine 10/08/22 Marta Ovalle Commercial ElectricianSmoking Pipe Liner 05/25/23 documented as of this encounter
--- OUTSIDE RECORDS SUMMARY | 2024-07-06 09:13 | XMS_ITS | Encounter Summary ---
Author Organization [employer] Address [address] [place] [address] 7t [place] [address] Care Team Providers Care Manual Writer Name Role Phone Name, Kiel BAILEY Primary Care Provider [phone] Katlyn Rodriguez PharmD Unavailable [phone] Encounter Details Date Type Department Care Team (Late Contact Info) Description 10/29/[address] [address] Name, MD Kiel [address] [place] [address] Social History Tobacco Use Types Packs/Day Years [...] Description 07/12/2024 9:30 AM EDT Medication Management [facility] [address] [place] [address] AdeniaKatlyn, PharmD [address] [place] [address] 07/27/2024 10:00 AM EDT Office Visit [facility] [place] [id number] [place] [id number] 08/20/2024 9:30 AM EDT Clinical Support [facility] [place] [address] Opal Steiner, RN documented as of this [...] documented as of this encounter Care Teams Manual Writer Relationship Specialty Start Date End Date Name, MD [place] [address] PCP - General Family Medicine 07/15/15 Puia, [place], [place] [id number] Pharmacist Internal Medicine 10/08/22 Marta Ovalle Supervisor MillEse Teacher 05/25/23 documented as of this encounter
--- OUTSIDE RECORDS SUMMARY | 2024-07-06 09:13 | XMS_ITS | Encounter Summary ---
Author Organization [employer] Address [address] [place] [address] 7t [place] [address] Care Team Providers Care Carbon Electrodes Supervisor Name Role Phone Name, Kiel BAILEY Primary Care Provider [phone] Katlyn Rodriguez PharmD Unavailable [phone] Encounter Details Date Type Department Care Team (Late Contact Info) Description 07/01/2022 Abstract [facility] [address] [place] [address] Name, MD Kiel [address] [place] [address] Social History Tobacco Use Types Packs/Day Years [...] Description 07/12/2024 9:30 AM EDT Medication Management [facility] [address] [place] [address] Katlyn Rodriguez PharmD [address] [place] [address] 07/27/2024 10:00 AM EDT Office Visit [address] [phone] Name, MD Kiel [address] [place] [address] 08/20/2024 9:30 AM EDT Clinical Support [address] [phone] Opal Steiner, MARINA documented as of this encounter Procedures Procedure Name Priority Date/Time Associated Diagnosis Comments COLONOSCOPY Routine 07/01/2022 4:37 PM EDT documented in this encounter Results * Colonoscopy (07/01/2022 4:37 PM EDT) Colonoscopy Normal Normal Narrative Emely Devine - 07/01/2022 4:37 PM EDT Recommended 5 year follow up ([facility] us Historical Provider HEALTH MAINTENANCE Final Result documented in this encounter Visit Diagnoses Not on filedocumented in this encounter Care Teams Carbon Electrodes Supervisor Relationship Specialty Start Date End Date Name, MD Kiel [address] [place] [address] PCP - General Family Medicine 07/15/15 Katlyn Rodriguez, PharmD [address] [place] [address] Pharmacist Internal Medicine 10/08/22 Marta Ovalle Guest Experience ManagerBusiness Development Associate 05/25/23 documented as of this encounter
--- OUTSIDE RECORDS SUMMARY | 2024-07-06 09:13 | XMS_ITS | Encounter Summary ---
Author Organization [employer] Address [address] [place] [address] 7t [place] [address] Care Team Providers Care Buggy Ladle Tender Name Role Phone Name, Kiel BAILEY Primary Care Provider [phone] Katlyn Rodriguez PharmD Unavailable [phone] Reason for Visit * Reason Comments Med Refill Encounter Details Date Type Department Care Team (Late Contact Info) Description 04/25/2022 Refill [facility] [address] [place] [address] Name, MD Kiel [address] [place] [address] Diabetes mellitus type 2 in obese (CMS/HCC) [...] Description 07/12/2024 9:30 AM EDT Medication Management [address] [address] Katlyn [place] [address] 07/27/2024 10:00 AM EDT Office Visit [address] [address] Name, [place] [address] 08/20/2024 9:30 AM EDT Clinical Support [address] [address] Opal Steiner RN documented as of this encounter Visit Diagnoses Diagnosis Diabetes mellitus type 2 in obese- Primary Type II or unspecified type diabetes mellitus without mention of complication, not stated as uncontrolled documented in this encounter Care Teams Buggy Ladle Tender Relationship Specialty Start Date End Date Name, MD Kiel [address] [place] [address] PCP - General Family Medicine 07/15/15 Katlyn Rodriguez PharmD [address] [place] [address] Pharmacist Internal Medicine 10/08/22 Marta Ovalle Ceramic CoaterTechnician 05/25/23 documented as of this encounter
--- OUTSIDE RECORDS SUMMARY | 2024-07-06 09:13 | XMS_ITS | Encounter Summary ---
Author Organization [employer] Address [address] [place] [address] 7t [place] [address] Care Team Providers Care Veneer Drier Feeder Name Role Phone Name, Kiel BAILEY Primary Care Provider [phone] Katlyn Rodriguez PharmD Unavailable [phone] Reason for Visit * Reason Comments Med Refill Encounter Details Date Type Department Care Team ([facility] st Contact Info) Description 07/02/2022 Refill [facility] [address] [place] [address] Name, MD Kiel [address] [place] [address] Chronic pain syndrome Social History Tobacco Use [...] Encounters Date Type Department Care Team ([facility] Contact Info) Description 07/12/2024 9:30 AM EDT Medication Management [facility] [address] [place] [address] Katlyn Rodriguez PharmD [address] [place] [address] 07/27/2024 10:00 AM EDT Office Visit [address] [address] Name, MD Kiel [address] [place] [address] 08/20/2024 9:30 AM EDT Clinical Support [address] [address] Opal Steiner RN documented as of this encounter Visit Diagnoses Diagnosis Chronic pain syndrome documented in this encounter Care Teams Veneer Drier Feeder Relationship Specialty Start Date End Date Name, MD Kiel [address] [place] [address] PCP - General Family Medicine 07/15/15 Katlyn Rodriguez, PharmD [address] [place] [address] Pharmacist Internal Medicine 10/08/22 Marta Ovalle Agricultural Service TechnicianShoe Shiner 05/25/23 documented as of this encounter
--- OUTSIDE RECORDS SUMMARY | 2024-07-06 09:13 | XMS_ITS | Encounter Summary ---
Author Organization [employer] Address [address] [facility] 7t [place] [address] Care Team Providers Care Filling Carrier Name Role Phone Name, Kiel BAILEY Primary Care Provider [phone] Katlyn Rodriguez PharmD Unavailable [phone] Reason for Visit * Reason Onset Date Comments Reschedule 08/01/2023 Encounter Details Date Type Department Care Team ([facility] st Contact Info) Description 08/01/2023 Telephone [facility] [address] [place] [address] Name, MD Kiel [address] [place] [address] Reschedule Social History Tobacco Use Types Packs/Day [...] 08/01/2023 9:55 AM EDT Triage call with [place] Senior Electrical Designer ID [id number] . Pt reports Covid + test this [...] 08/01/2023 9:04 AM EDT Patient cancelled todays RESEARCH ASSISTANT MEMBER RV appt today. Pt's RESEARCH ASSISTANT MEMBER appt has been rescheduled for chronic pain [...] AM EDT Tc from pt requesting r/s RESEARCH ASSISTANT MEMBER appt, stated is sick and suspect is COVID documented in this encounter Plan of Treatment Upcoming Encounters Date Type Department Care Team (Late st Contact Info) Description 07/12/2024 9:30 AM EDT Medication Management [facility] [address] [place] [address] Katlyn Rodriguez, PharmD 230 [place] [address] 07/27/2024 10:00 AM EDT Office Visit [facility] [address] [place] [address] Name, MD Kiel [address] [place] [address] 08/20/2024 9:30 AM EDT Clinical Support [facility] [address] [place] [address] Opal Steiner, RN documented as of this [...] documented as of this encounter Care Teams Filling Carrier Relationship Specialty Start Date End Date Name, MD Kiel [address] [place] [address] PCP - General Family Medicine 07/15/15 Puia, Katlyn, PharmD [address] [place] [address] Pharmacist Internal Medicine 10/08/22 Marta Ovalle Mud Analysis Well Logging OperatorAuto Collision Repair Instructor 05/25/23 documented as of this encounter
--- OUTSIDE RECORDS SUMMARY | 2024-07-06 09:13 | XMS_ITS | Encounter Summary ---
Author Organization [employer] Address [address] [facility] 7t [place] [address] Care Team Providers Care Head Boys Golf Coach Name Role Phone Name, Kiel BAILEY Primary Care Provider [phone] Katlyn Rodriguez PharmD Unavailable [phone] Reason for Visit * Reason Comments Med Refill Encounter Details Date Type Department Care Team (Late st Contact Info) Description 09/07/2023 Refill [facility] [address] [place], [place] [phone] Name, MD Kiel [address] [place] [address] Type 2 diabetes mellitus with other specified [...] 07/12/2024 9:30 AM EDT Medication Management [address] [address] PuiaReidKatlyn, PharmD [address] [place] [address] 07/27/2024 10:00 AM EDT Office Visit [address] [address] Name, MD Kiel [address] [place] [address] 08/20/2024 9:30 AM EDT Clinical Support [address] [address] Opal Steiner, MARINA documented as of this [...] documented as of this encounter Care Teams Head Boys Golf Coach Relationship Specialty Start Date End Date Name, MD Kiel [address] [place] [address] PCP - General Family Medicine 07/15/15 Katlyn Rodriguez, AngieD [address] [place] [address] Pharmacist Internal Medicine 10/08/22 Marta Ovalle Farmworker FruitFashion Director 05/25/23 documented as of this encounter
--- OUTSIDE RECORDS SUMMARY | 2024-07-06 09:13 | XMS_ITS | Encounter Summary ---
Author Organization [employer] Address [address] [facility] 7t [place] [address] Care Team Providers Care Film Processing Shift Supervisor Name Role Phone Name, Kiel BAILEY Primary Care Provider [phone] Katlyn Rodriguez PharmD Unavailable [phone] Reason for Visit * Reason Comments Med Refill Encounter Details Date Type Department Care Team ([facility] st Contact Info) Description 04/15/2023 Refill [facility] [address] [place] [address] Yaneth Restrepo FNP [address] [place] [address] Diabetes mellitus type 2 in obese (CMS/HCC) [...] Description 07/12/2024 9:30 AM EDT Medication Management [address] [address] Puia, Katlyn, PharmD [address] [place] [address] 07/27/2024 10:00 AM EDT Office Visit [address] [address] Name, MD Kiel [address] [place] [address] 08/20/2024 9:30 AM EDT Clinical Support [address] [address] Opal Stenier RN documented as of this encounter Goals [...] as of this encounter Care Teams Film Processing Shift Supervisor Relationship Specialty Start Date End Date Name, MD Kiel [address] [place] [address] PCP - General Family Medicine 07/15/15 Katlyn Rodriguez PharmD [address] [place] [address] Pharmacist Internal Medicine 10/08/22 Marta Ovalle Acid Wash OperatorPortfolio Consultant 05/25/23 documented as of this encounter
== END 2024-07-06 08:59 | disposition home or self-care (01) ==
LOC: HO.XRAY 08:58
PROVIDERS: PCP Internal Medicine Geriatric Medicine; Visit Provider Nurse Practitioner Family
DX: M54.6 Pain in thoracic spine (principal)
CPT/HCPCS: 72072

== ENCOUNTER → 2024-07-06 09:09 | Outpatient (BNV) | payer MEDICAID, SELFPAY | PROVIDERS: PCP Internal Medicine Geriatric Medicine; Visit Provider Specialist | DX: M54.6 Pain in thoracic spine (principal) | CPT/HCPCS: 72072 ==

== ENCOUNTER 2024-07-10 13:09 | Outpatient (REF) | payer MEDICAID, SELFPAY ==
--- NOTE | ~2024-07-10 | MR_ITS ---
EXAMINATION: MR BRAIN WITHOUT AND WITH CONTRAST CLINICAL INFORMATION: Brain lesion. COMPARISON: Non-IV contrast MRI brain dated June 18, 2024. Correlated to CT angiogram head neck dated June 10, 2024. TECHNIQUE: Multiplanar, multisequence MRI of the brain was obtained before and after the intravenous administration of 10 mL gadolinium based (Gadavist) without reported immediate complications.. FINDINGS: There is a hyperintense T2 FLAIR, intrinsic hyperintense T1 and associated susceptibility signal abnormality extending from the right dorsal geovany/midbrain into the medial aspect of the right internal capsule with subtle restricted diffusion possibly related to the susceptibility. There is slight heterogeneous enhancement within the signal abnormality. There is no perilesional vasogenic edema, mass effect, midline shift, hydrocephalus or herniation. There is no other intra-axial or extra-axial enhancing lesion and or mass in the supratentorial or infratentorial compartment. Jang-white matter differentiation is normal. Flow-void signal within the main cerebral vessels is normal. Sellar/suprasellar region demonstrated no gross signal abnormality or enhancing lesion. Craniocervical junction demonstrates normal position of the cerebellar tonsils. MR/MR head/brain wo/w con IMPRESSION: Probable early to late subacute intra-axial hemorrhage, right midbrain/medial right internal capsule. Underlying neoplasm seems less likely. Recommend follow-up until resolution. Electronically signed by: Felix Fall MD 07/10/2024 02:44 PM EDT
[2024-07-10] MEDS: gadobutroL 10 ML VIAL IVPUSH (14:06)
--- OUTSIDE RECORDS SUMMARY | 2024-07-10 14:14 | XMS_ITS | Encounter Summary ---
Author Organization [employer] Address [address] [facility] 7t [place] [address] Care Team Providers Care Optical Manufacturing Technician Name Role Phone Name, Kiel BAILEY Primary Care Provider [phone] Katlyn Rodriguez PharmD Unavailable Reason for Visit * Reason Onset Date Comments Reschedule 08/01/2023 Encounter Details Date Type Department Care Team ([facility] st Contact Info) Description 08/01/2023 Telephone [facility] [address] [place] [address] Name, MD Kiel [address] [place] [address] Reschedule Social History Tobacco Use Types Packs/Day [...] 08/01/2023 9:55 AM EDT Triage call with [place] Territory Development Manager ID [id number] . Pt reports Covid + test this [...] 08/01/2023 9:04 AM EDT Patient cancelled todays SOCK EXAMINER RV appt today. Pt's SOCK EXAMINER appt has been rescheduled for chronic pain [...] AM EDT Tc from pt requesting r/s SOCK EXAMINER appt, stated is sick and suspect is COVID documented in this encounter Plan of Treatment Upcoming Encounters Date Type Department Care Team (Late st Contact Info) Description 07/12/2024 9:30 AM EDT Medication Management [facility] [address] [place] [address] Katlyn Rodriguez, PharmD [address] [place] [address] 07/27/2024 10:00 AM EDT Office Visit [facility] [address] [place] [address] Name, MD Kiel [address] [place] [address] 08/20/2024 9:30 AM EDT Clinical Support [facility] [address] [place] [address] Opal Steiner, MARINA documented as of this [...] documented as of this encounter Care Teams Optical Manufacturing Technician Relationship Specialty Start Date End Date Name, MD Kiel [address] [place] [address] PCP - General Family Medicine 07/15/15 Puia, Katlyn, PharmD [address] [place] [address] Pharmacist Internal Medicine 10/08/22 Marta Ovalle Kiln PusherDirector Of Infection Control 05/25/23 documented as of this encounter
--- OUTSIDE RECORDS SUMMARY | 2024-07-10 14:14 | XMS_ITS | Encounter Summary ---
Author Organization [employer] Address [address] [facility] 7t [place] [address] Care Team Providers Care Economic Historian Name Role Phone Name, Kiel BAILEY Primary Care Provider [phone] Katlyn Rodriguez PharmD Unavailable [phone] Reason for Visit * Reason Comments Med Refill Encounter Details Date Type Department Care Team ([facility] Contact Info) Description 06/27/2023 Refill [facility] 230 [place] [address] Katlyn Rodriguez, PharmD 230 [place] [address] Tobacco use disorder Social History Tobacco Use [...] 07/12/2024 9:30 AM EDT Medication Management [address] [address] Puia, Katlyn, PharmD [address] [place] [address] 07/27/2024 10:00 AM EDT Office Visit [address] [address] Name, MD Kiel [address] [place] [address] 08/20/2024 9:30 AM EDT Clinical Support [address] [address] Opal Steiner RN documented as of this [...] documented as of this encounter Care Teams Economic Historian Relationship Specialty Start Date End Date Name, MD Kiel [address] [place] [address] PCP - General Family Medicine 07/15/15 Katlyn Rodriguez PharmD 230 [place] [address] Pharmacist Internal Medicine 10/08/22 Marta Ovalle Ambulatory Services RepresentativePruner 05/25/23 documented as of this encounter
--- OUTSIDE RECORDS SUMMARY | 2024-07-10 14:14 | XMS_ITS | Encounter Summary ---
Author Organization [employer] Address [address] [facility] 7t [place] [address] Care Team Providers Care Boiler Reliner Name Role Phone Name, Kiel BAILEY Primary Care Provider [phone] Katlyn Rodriguez PharmD Unavailable [phone] Encounter Details Date Type Department Care Team ([facility] Contact Info) Description 05/01/2024 Telephone [facility] [address] [place], [place] [phone] Name, MD Kiel 230 [place] [address] Social History Tobacco Use Types Packs/Day Years [...] Description 07/12/2024 9:30 AM EDT Medication Management [address] [address] Katlyn Rodriguez, PharmD [address] [place] [address] 07/27/2024 10:00 AM EDT Office Visit [address] [address] Name, MD Kiel [address] [place] [address] 08/20/2024 9:30 AM EDT Clinical Support [address] [address] Opal Steiner, RN documented as of this encounter Goals Goal Patient Goal Type Associated Problems Recent Progress Patient-Stated? Author Record your blood pressure once per day Blood Pressure No Puia, Katlyn, PharmD Blood Pressure < 140/90 Blood Pressure 81/56( 025 9:57 AM EDT) No Puia, Katlyn, PharmD Hemoglobin A1c < 7 Result Component 6.7( 5 9:59 AM EDT) No Puia, Kaltyn, PharmD Record your blood sugar as directed Result Component No Puia, Katlyn, PharmD documented as of this encounter Visit Diagnoses Not on filedocumented in this encounter Additional Health Concerns Assessment Noted Time PHQ-9 Depression Total Score: 4 09/02/19 24 10:30 AM EDT documented as of this encounter Care Teams Boiler Reliner Relationship Specialty Start Date End Date Name, MD Kiel [address] [place] [address] PCP - General Family Medicine 07/15/15 Katlyn Rodriguez, PharmD [address] [place] [address] Pharmacist Internal Medicine 10/08/22 Marta Ovalle Accounts Receivable AnalystOutsole Tacker 05/25/23 documented as of this encounter
--- OUTSIDE RECORDS SUMMARY | 2024-07-10 14:14 | XMS_ITS | Encounter Summary ---
Author Organization [facility] Address [address] [place] [address] Care Team Providers Care Plasma Center Nurse Name Role Phone Name, Kiel BAILEY Primary Care Provider Unavailabl e Name, Kiel BAILEY Primary Care Provider Unavailabl e Philly Vela DO Primary Care Pro vider Unavailable Name, Kiel BAILEY Primary Care Provider Unavailabl e Encounter Details Date Type Department Care Team Description 11/24/2011 Posting Specialist Report Medical Records [address] [place] [address] Geovani Nielsen Social History Tobacco Use Types [...] on filedocumented in this encounter Care Teams Plasma Center Nurse Relationship Specialty Start Date End Date Kiel Shaffer MD PCP - General 05/26/09 04/27/15 Kiel Shaffer MD PCP - General Internal Medicine 04/28/15 05/05/15 Philly Vela DO PCP - General Internal Medicine 05/06/15 08/27/15 Kiel Shaffer MD PCP - General Internal Medicine 08/28/15 documented as of this encounter
--- OUTSIDE RECORDS SUMMARY | 2024-07-10 14:14 | XMS_ITS | Encounter Summary ---
Author Organization [facility] Address [address] [place] [address] Care Team Providers Care Software Testing Specialist Name Role Phone Name, Kiel BAILEY Primary Care Provider Unavailabl e Name, Kiel BAILEY Primary Care Provider Unavailabl e Philly Vela DO Primary Care Pro vider Unavailable Name, Kiel BAILEY Primary Care Provider Unavailabl e Encounter Details Date Type Department Care Team Description 11/25/2011 Release of Information Medical Records [address] [place] [address] Abstract, Provider Social History Tobacco Use Types [...] filedocumented in this encounter Care Teams Software Testing Specialist Relationship Specialty Start Date End Date Kile Shaffer MD PCP - General 05/26/09 04/27/15 Kiel Shaffer MD PCP - General Internal Medicine 04/28/15 05/05/15 Philly Vela DO PCP - General Internal Medicine 05/06/15 08/27/15 Kiel Shaffer MD PCP - General Internal Medicine 08/28/15 documented as of this encounter
--- OUTSIDE RECORDS SUMMARY | 2024-07-10 14:14 | XMS_ITS | Encounter Summary ---
Author Organization [employer] Address [address] [facility] 7t [place] [address] Care Team Providers Care Shellfish Bed Worker Name Role Phone Name, Kiel BAILEY Primary Care Provider [phone] Katlyn Rodriguez PharmD Unavailable Reason for Visit * Reason Comments Med Refill Encounter Details Date Type Department Care Team ([facility] st Contact Info) Description 09/07/2023 Refill [facility]S [address] [place], [place] [phone] Name, MD Kiel [address] [place] [address] Type 2 diabetes mellitus with other specified [...] 07/12/2024 9:30 AM EDT Medication Management [address] [address] PuiaReidKatlyn, PharmD [address] [place] [address] 07/27/2024 10:00 AM EDT Office Visit [address] [address] Name, MD Kiel [address] [place] [address] 08/20/2024 9:30 AM EDT Clinical Support [address] [address] Opal Steiner, MARINA documented as of this [...] documented as of this encounter Care Teams Shellfish Bed Worker Relationship Specialty Start Date End Date Name, MD Kiel [address] [place] [address] PCP - General Family Medicine 07/15/15 Katlyn Rodriguez PharmD [address] [place] [address] Pharmacist Internal Medicine 10/08/22 Marta Ovalle Leak DetectorProperty Supervisor 05/25/23 documented as of this encounter
--- OUTSIDE RECORDS SUMMARY | 2024-07-10 14:14 | XMS_ITS | Encounter Summary ---
Author Organization [employer] Address [address] [facility] 7t [place] [address] Care Team Providers Care Test Specialist Name Role Phone Name, Kiel BAILEY Primary Care Provider [phone] Katlyn Rodriguez PharmD Unavailable [phone] Reason for Visit * Reason Comments Med Refill Encounter Details Date Type Department Care Team ([facility] st Contact Info) Description 04/15/2023 Refill [facility] [address] [place] [address] Yaneth Restrepo FNP [address] [place] [address] Diabetes mellitus type 2 in obese (CMS/HCC) [...] Description 07/12/2024 9:30 AM EDT Medication Management [address] [address] PuiaReidKatlyn, PharmD [address] [place] [address] 07/27/2024 10:00 AM EDT Office Visit [address] [address] Name, MD Kiel [address] [place] [address] 08/20/2024 9:30 AM EDT Clinical Support [address] [address] Opal Steiner RN documented as of this [...] documented as of this encounter Care Teams Test Specialist Relationship Specialty Start Date End Date Name, MD Kiel [address] [place] [address] PCP - General Family Medicine 07/15/15 Katlyn Rodriguez PharmD [address] [place] [address] Pharmacist Internal Medicine 10/08/22 Marta Ovalle Program DeveloperOintment Mill Tender 05/25/23 documented as of this encounter
--- OUTSIDE RECORDS SUMMARY | 2024-07-10 14:14 | XMS_ITS | Encounter Summary ---
Author Organization [facility] Address [address] [place] [address] Care Team Providers Care Surveillance Monitor Name Role Phone Name, Kiel BAILEY Primary Care Provider Unavailabl e Name, Kiel BAILEY Primary Care Provider Unavailabl e Philly Vela DO Primary Care Pro vider Unavailable Name, Kiel BAILEY Primary Care Provider Unavailabl e Encounter Details Date Type Department Care Team Description 11/25/2011 Cellular Equipment Installer Report Medical Records [address] [place] [address] Mohini Ellis NP Social History Tobacco Use [...] on filedocumented in this encounter Care Teams Surveillance Monitor Relationship Specialty Start Date End Date Kiel Shaffer MD PCP - General 05/26/09 04/27/15 Kiel Shaffer MD PCP - General Internal Medicine 04/28/15 05/05/15 Philly Vela DO PCP - General Internal Medicine 05/06/15 08/27/15 Kiel Shaffer MD PCP - General Internal Medicine 08/28/15 documented as of this encounter
--- OUTSIDE RECORDS SUMMARY | 2024-07-10 14:14 | XMS_ITS | Encounter Summary ---
Author Organization [employer] Address [address] [place] [address] 7t [place] [address] Care Team Providers Care Business Programmer Name Role Phone Name, Kiel BAILEY Primary Care Provider [phone] Katlyn Rodriguez PharmD Unavailable [phone] Encounter Details Date Type Department Care Team ([facility] Contact Info) Description 03/12/2022 Orders Only [facility] CHC MED & PEDS [address] [place], [place] [phone] Millie Sawant LPN Social History Tobacco Use [...] Upcoming Encounters Date Type Department Care Team ([facility] Contact Info) Description 07/12/2024 9:30 AM EDT Medication Management [facility] MEDICINE [address] [place], [place] [phone] Katlyn Rodriguez, PharmD [address] [place], [place] [phone] 07/27/2024 10:00 AM EDT Office Visit [address] [address] Name, MD [facility] [place] [address] 08/20/2024 9:30 AM EDT Clinical Support [address] [address] Opal Steiner, MARINA documented as of this encounter Visit Diagnoses Not on filedocumented in this encounter Care Teams Business Programmer Relationship Specialty Start Date End Date Name, [place] [address] PCP - General Family Medicine 07/15/15 Katlyn Rodriguez PharmD [address] [place] [address] Pharmacist Internal Medicine 10/08/22 Marta Ovalle Construction FlaggerRibber 05/25/23 documented as of this encounter
--- OUTSIDE RECORDS SUMMARY | 2024-07-10 14:14 | XMS_ITS | Encounter Summary ---
Author Organization [employer] Address 75 [facility] 7t [place] [address] Care Team Providers Care Antique Repairer Name Role Phone Name, Kiel BAILEY Primary Care Provider [phone] Katlyn Rodriguez PharmD Unavailable Reason for Visit * Reason Onset Date Comments Medication Problem 08/30/2023 Encounter Details Date Type Department Care Team ([facility] Contact Info) Description 08/30/2023 Telephone [facility] MEDICINE [address] [place], [place] [phone] Name, MD Kiel 230 [place] [address] Medication Problem Social History Tobacco Use Types [...] energy Several days 09/02/2023 10:30 AM Erika Aolnzo Poor appetite or overeating Not at all 09/02/2023 10 :30 AM Erika Alonzo Feeling bad about yourself - or that you are a failure or have let yourself or your family down Not at all 09/02/2023 10:30 AM EDT Erika Zacarias Trouble concentrating on things, such as reading [...] 07/12/2024 9:30 AM EDT Medication Management [address] [address] Katlyn Rodriguez PharmD [address] [place] [address] 07/27/2024 10:00 AM EDT Office Visit [address] [address] Name, MD Kiel [address] [place] [address] 08/20/2024 9:30 AM EDT Clinical Support [address] [address] Opal Steiner, RN documented as of this [...] documented as of this encounter Care Teams Antique Repairer Relationship Specialty Start Date End Date Name, MD Kiel [address] [place] [address] PCP - General Family Medicine 07/15/15 Katlyn Rodriguez, PharmD [address] [place] [address] Pharmacist Internal Medicine 10/08/22 Marta Ovalle Calibration Laboratory TechnicianCounter Molder 05/25/23 documented as of this encounter
--- OUTSIDE RECORDS SUMMARY | 2024-07-10 14:14 | XMS_ITS | Encounter Summary ---
Author Organization [facility] Address [address] [place] [address] Care Team Providers Care Cupola Liner Helper Name Role Phone Name, Kiel BAILEY Primary Care Provider Unavailabl e Name, Kiel BAILEY Primary Care Provider Unavailabl e Philly Vela DO Primary Care Pro vider Unavailable Name, Kiel BAILEY Primary Care Provider Unavailabl e Encounter Details Date Type Department Care Team Description 10/31/2009 Hospital Medical Records [address] [place] [address] Hever Bush Social History Tobacco Use Types [...] on filedocumented in this encounter Care Teams Cupola Liner Helper Relationship Specialty Start Date End Date Kiel Shaffer MD PCP - General 05/26/09 04/27/15 Kiel Shaffer MD PCP - General Internal Medicine 04/28/15 05/05/15 Philly Vela DO PCP - General Internal Medicine 05/06/15 08/27/15 Kiel Shaffer MD PCP - General Internal Medicine 08/28/15 documented as of this encounter
--- OUTSIDE RECORDS SUMMARY | 2024-07-10 14:15 | XMS_ITS | Encounter Summary ---
Author Organization [facility] Address [address] [place] [address] Care Team Providers Care Airport Attendant Name Role Phone Name, Kiel BAILEY Primary Care Provider Unavailabl e Name, Kiel BAILEY Primary Care Provider Unavailabl e Philly Vela DO Primary Care Pro vider Unavailable Name, Kiel BAILEY Primary Care Provider Unavailabl e Encounter Details Date Type Department Care Team Description 08/13/2011 Hospital Medical Records [address] [place] [address] Marcia Wan MD Social History Tobacco Use [...] on filedocumented in this encounter Care Teams Airport Attendant Relationship Specialty Start Date End Date Kiel Shaffer MD PCP - General 05/26/09 04/27/15 Kiel Shaffer MD PCP - General Internal Medicine 04/28/15 05/05/15 Philly Vela DO PCP - General Internal Medicine 05/06/15 08/27/15 Kiel Shaffer MD PCP - General Internal Medicine 08/28/15 documented as of this encounter
--- OUTSIDE RECORDS SUMMARY | 2024-07-10 14:15 | XMS_ITS | Encounter Summary ---
Author Organization [employer] Address 75 [facility] 7t [place] [address] Care Team Providers Care Field Attendant Name Role Phone Name, Kiel BAILEY Primary Care Provider [phone] Katlyn Rodriguez PharmD Unavailable [phone] Reason for Visit * Reason Comments Med Refill Encounter Details Date Type Department Care Team ([facility] st Contact Info) Description 06/08/2024 Refill [facility] CHC MED & PEDS [address] [place], [place] [phone] Name, MD Kiel [address] [place] [address] Chronic pain syndrome Social History Tobacco Use [...] Description 07/12/2024 9:30 AM EDT Medication Management [address] [address] PuiaReidKatlyn, PharmD [address] [place] [address] 07/27/2024 10:00 AM EDT Office Visit [address] [address] Name, MD Kiel [address] [place] [address] 08/20/2024 9:30 AM EDT Clinical Support [address] [address] Opal Steiner RN documented as of this encounter Goals Goal Patient Goal Type Associated Problems Recent Progress Patient-Stated? Author Record your blood pressure once per day Blood Pressure No Puia, Katlyn, PharmD Blood Pressure < 140/90 Blood Pressure 81/56( 025 9:57 AM EDT) No Puia Katlyn, PharmD Hemoglobin A1c < 7 Result Component 6.7(05/08/202 5 9:59 AM EDT) No Puia, Katlyn, PharmD Record your blood sugar as directed Result Component No Puia, Katlyn, PharmD documented as of this encounter Visit Diagnoses Diagnosis Chronic pain syndrome documented in this encounter Additional Health Concerns Assessment Noted Time PHQ-9 Depression Total Score: 4 09/02/19 24 10:30 AM EDT documented as of this encounter Care Teams Field Attendant Relationship Specialty Start Date End Date Name, MD Kiel 230 [place] [address] PCP - General Family Medicine 07/15/15 Katlyn Rodriguez, PharmD 230 [place] [address] Pharmacist Internal Medicine 10/08/22 Marta Ovalle Engagement ManagerBicycle Subassembler 05/25/23 documented as of this encounter
--- OUTSIDE RECORDS SUMMARY | 2024-07-10 14:15 | XMS_ITS | Encounter Summary ---
Author Organization [facility] Address [address] [place] [address] Care Team Providers Care Territory Business Manager Name Role Phone Name, Kiel BAILEY Primary Care Provider Unavailabl e Encounter Details Date Type Department Care Team Description 01/07/2021 Hospital Medical Records [address] [place] [id number] [place] [address] Social History Tobacco Use Types Packs/Day Years [...] on filedocumented in this encounter Care Teams Territory Business Manager Relationship Specialty Start Date End Date Name, MD Kiel PCP - General Internal Medicine 08/28/15 documented as of this encounter
--- OUTSIDE RECORDS SUMMARY | 2024-07-10 14:15 | XMS_ITS | Encounter Summary ---
Author Organization [employer] Address 75 [facility] 7t [place] [address] Care Team Providers Care Alliance Consultant Name Role Phone Name, Kiel BAILEY Primary Care Provider [phone] Katlyn Rodriguez PharmD Unavailable Reason for Visit * Reason Comments Med Refill Encounter Details Date Type Department Care Team ([facility] st Contact Info) Description 06/08/2024 Refill [facility] CHC MED & PEDS [address] [place], [place] [phone] Name, MD Kiel [address] [place] [address] Chronic pain syndrome Social History Tobacco Use [...] Description 07/12/2024 9:30 AM EDT Medication Management [address] [address] PuiaReidKatlyn, PharmD [address] [place] [address] 07/27/2024 10:00 AM EDT Office Visit [address] [address] Name, MD Kiel [address] [place] [address] 08/20/2024 9:30 AM EDT Clinical Support [address] [address] Opal Steiner RN documented as of this [...] documented as of this encounter Care Teams Alliance Consultant Relationship Specialty Start Date End Date Name, MD Kiel [address] [place] [address] PCP - General Family Medicine 07/15/15 Katlyn Rodriguez, PharmD [address] [place] [address] Pharmacist Internal Medicine 10/08/22 Marta Ovalle Medical ScribeDisbursement Clerk 05/25/23 documented as of this encounter
--- OUTSIDE RECORDS SUMMARY | 2024-07-10 14:15 | XMS_ITS | Encounter Summary ---
Author Organization [employer] Address 75 [facility] 7t [place] [address] Care Team Providers Care Rn Clinical Research Name Role Phone Name, Kiel BAILEY Primary Care Provider Katlyn Rodriguez PharmD Unavailable [phone] Encounter Details Date Type Department Care Team ([facility] Contact Info) Description 07/01/2022 Abstract [facility] MEDICINE [address] [place] [address] Name, MD Kiel [address] [place] [address] Social History Tobacco Use Types Packs/Day Years [...] Team ([facility] Contact Info) Description 07/12/2024 9:30 AM EDT Medication Management [facility] MEDICINE [address] [place] [address] Katlyn Rodriguez PharmD [address] [place] [address] 07/27/2024 10:00 AM EDT Office Visit [address] [address] Name, MD Kiel [address] [place] [address] 08/20/2024 9:30 AM EDT Clinical Support [address] [phone] Opal Steiner RN documented as of this encounter Procedures Procedure Name Priority Date/Time Associated Diagnosis Comments COLONOSCOPY Routine 07/01/2022 4:37 PM EDT documented in this encounter Results * Colonoscopy (07/01/2022 4:37 PM EDT) Colonoscopy Normal Normal Narrative Emely Devine - 07/01/2022 4:37 PM EDT Recommended 5 year follow up ([facility]) Historical Provider HEALTH MAINTENANCE Final Result documented in this encounter Visit Diagnoses Not on filedocumented in this encounter Care Teams Rn Clinical Research Relationship Specialty Start Date End Date Name, MD Kiel [address] [place] [address] PCP - General Family Medicine 07/15/15 Katlyn Rodriguez, PharmD [address] [place] [address] Pharmacist Internal Medicine 10/08/22 Marta Ovalle Flight Radio OperatorInstruction Dean 05/25/23 documented as of this encounter
--- OUTSIDE RECORDS SUMMARY | 2024-07-10 14:15 | XMS_ITS | Encounter Summary ---
Author Organization [employer] Address [address] [place] [address] 7t [place] [address] Care Team Providers Care Base Brander Name Role Phone Name, Kiel BAILEY Primary Care Provider [phone] Katlyn Rodriguez PharmD Unavailable [phone] Encounter Details Date Type Department Care Team ([facility] Contact Info) Description 02/23/2022 Orders Only [facility] [address] [place] [address] Name, MD Kiel [address] [place] [address] Social History Tobacco Use Types Packs/Day Years [...] Encounters Date Type Department Care Team ([facility] Contact Info) Description 07/12/2024 9:30 AM EDT Medication Management [facility] MEDICINE [address] [place] [address] PuiaPremasa, PharmD 230 [place] [address] 07/27/2024 10:00 AM EDT Office Visit [address] [address] Name, [place] [address] 08/20/2024 9:30 AM EDT Clinical Support [address] [phone] Opal Steiner, MARINA documented as of this encounter Visit Diagnoses Not on filedocumented in this encounter Care Teams Base Brander Relationship Specialty Start Date End Date Name, MD Kiel [address] [place] [address] PCP - General Family Medicine 07/15/15 Katlyn Rodriguez PharmD [address] [place] [address] Pharmacist Internal Medicine 10/08/22 Marta Ovalle Process SpecialistNephrology Nurse 05/25/23 documented as of this encounter
--- OUTSIDE RECORDS SUMMARY | 2024-07-10 14:15 | XMS_ITS | Encounter Summary ---
Author Organization [facility] Address [address] [place] [address] Care Team Providers Care Shop Mechanic Name Role Phone Name, Kiel BAILEY Primary Care Provider Unavailabl e Name, Kiel BAILEY Primary Care Provider Unavailabl e Philly Vela DO Primary Care Pro vider Unavailable Name, Kiel BAILEY Primary Care Provider Unavailabl e Encounter Details Date Type Department Care Team Description 08/26/2011 Hospital Medical Records [address] [place] [address] Dot Cordova Social History Tobacco Use Types [...] on filedocumented in this encounter Care Teams Shop Mechanic Relationship Specialty Start Date End Date Kiel Shaffer MD PCP - General 05/26/09 04/27/15 Kiel Shaffer MD PCP - General Internal Medicine 04/28/15 05/05/15 Philly Vela DO PCP - General Internal Medicine 05/06/15 08/27/15 Kiel Shaffer MD PCP - General Internal Medicine 08/28/15 documented as of this encounter
--- OUTSIDE RECORDS SUMMARY | 2024-07-10 14:15 | XMS_ITS | Encounter Summary ---
Author Organization [facility] Address [address] [place] [address] Care Team Providers Care General Car Supervisor Yard Name Role Phone Name, Kiel BAILEY Primary Care Provider Unavailabl e Name, Kiel BAILEY Primary Care Provider Unavailabl e Philly Vela DO Primary Care Pro vider Unavailable Name, Kiel BAILEY Primary Care Provider Unavailabl e Encounter Details Date Type Department Care Team Description 02/11/2011 Crisis Worker Report Medical Records [address] [place] [address] Quinton Luther Social History Tobacco Use Types [...] on filedocumented in this encounter Care Teams General Car Supervisor Yard Relationship Specialty Start Date End Date Kiel Shaffer MD PCP - General 05/26/09 04/27/15 Kiel Shaffer MD PCP - General Internal Medicine 04/28/15 05/05/15 Philly Vela DO PCP - General Internal Medicine 05/06/15 08/27/15 Kiel Shaffer MD PCP - General Internal Medicine 08/28/15 documented as of this encounter
--- OUTSIDE RECORDS SUMMARY | 2024-07-10 14:15 | XMS_ITS | Encounter Summary ---
Author Organization [facility] Address [address] [place] [address] Care Team Providers Care Rn Pool Name Role Phone Philly Vela DO Primary Care Pro vider Unavailable Kiel Shaffer MD Primary Care Provider Unavailabl e Encounter Details Date Type Department Care Team Description 06/04/2015 Buildings And Grounds Coordinator Report Medical Records [address] [place] [address] Zack Castro PA-C Social History Tobacco Use Types Packs/Day [...] filedocumented in this encounter Care Teams Rn Pool Relationship Specialty Start Date End Date Philly Vela DO PCP - General Internal Medicine 05/06/15 08/27/15 Kiel Shaffer MD PCP - General Internal Medicine 08/28/15 documented as of this encounter
--- OUTSIDE RECORDS SUMMARY | 2024-07-10 14:15 | XMS_ITS | Encounter Summary ---
Author Organization [employer] Address 75 [facility] 7t [place] [address] Care Team Providers Care Table Setter Name Role Phone Name, Kiel BAILEY Primary Care Provider [phone] Katlyn Rodriguez PharmD Unavailable [phone] Reason for Visit * Reason Onset Date Comments Appointment Request 02/29/2024 Encounter Details Date Type Department Care Team ([facility] Contact Info) Description 02/29/2024 Telephone [facility] MEDICINE [address] [place], [place] [phone] Name, MD Kiel [address] [place] [address] Appointment Request Social History Tobacco Use Types [...] different date and time. Pt does speak mexican so you will need an associate relations specialist. documented in this encounter Plan of Treatment Upcoming Encounters Date Type Department Care Team (Late st Contact Info) Description 07/12/2024 9:30 AM EDT Medication Management [address] [address] Katlyn Rodriguez, PharmD [address] [place] [address] 07/27/2024 10:00 AM EDT Office Visit [address] [address] Name, MD Kiel [address] [place] [address] 08/20/2024 9:30 AM EDT Clinical Support [address] [address] Opal Steiner, MARINA documented as of this [...] as of this encounter Care Teams Table Setter Relationship Specialty Start Date End Date Name, MD Kiel [address] [place] [address] PCP - General Family Medicine 07/15/15 Puia, Katlyn, PharmD [address] [place] [address] Pharmacist Internal Medicine 10/08/22 Marta Ovalle Hat And Cap Drying Room AttendantMachine Shop Helper 05/25/23 documented as of this encounter
--- OUTSIDE RECORDS SUMMARY | 2024-07-10 14:15 | XMS_ITS | Clinical Summary ---
Author Organization [facility] Address [address] [place] [address] Care Team Providers Care Kingsbury Machine Operator Name Role Phone Name, Kiel [...] just unsure what to do Educational Resources [place] [employer] Diabetes Association (www.diabetes.org) Centers for Disease Control [...] leg 09/21 Overview: The patient follows with [facility] and is treated with [...] Hx Relation Name Status Comments Brother 1 OR Brother 2 Alive 6 brothers are diabetic [...] HEPATITIS C SCREENING Completed 10/10/2013 Care Teams [place]bury Machine Operator Relationship Specialty Start Date End Date Name, MD Kiel PCP - General Internal Medicine 08/28/15
--- OUTSIDE RECORDS SUMMARY | 2024-07-10 14:15 | XMS_ITS | Encounter Summary ---
Author Organization [facility] Address [address] [place] [address] Care Team Providers Care Successfactors Consultant Name Role Phone Name, Kiel BAILEY Primary Care Provider [phone] Encounter Details Date Type Department Care Team Description 09/10/2022 Social Work [facility] Oncology Services [address] [place] [address] Adina Archer, [facility] Social History Tobacco Use [...] on filedocumented in this encounter Care Teams Successfactors Consultant Relationship Specialty Start Date End Date Name, MD Kiel [address] [place] [address] [address] [place] [address] PCP - General Internal Medicine 04/17/18 documented as of this encounter
--- OUTSIDE RECORDS SUMMARY | 2024-07-10 14:15 | XMS_ITS | Encounter Summary ---
Author Organization [facility] Address [address] [place] [address] Care Team Providers Care Agricultural Science Professor Name Role Phone Name, Kiel BAILEY Primary Care Provider Unavailabl e Name, Kiel BAILEY Primary Care Provider Unavailabl e Philly Vela DO Primary Care Pro vider Unavailable Name, Kiel BAILEY Primary Care Provider Unavailabl e Encounter Details Date Type Department Care Team Description 03/30/2011 Technology Recruiter Report Medical Records [address] [place] [address] Mohini Ellis NP Social History Tobacco Use [...] on filedocumented in this encounter Care Teams Agricultural Science Professor Relationship Specialty Start Date End Date Kiel Shaffer MD PCP - General 05/26/09 04/27/15 Kiel Shaffer MD PCP - General Internal Medicine 04/28/15 05/05/15 Philly Vela DO PCP - General Internal Medicine 05/06/15 08/27/15 Kiel Shaffer MD PCP - General Internal Medicine 08/28/15 documented as of this encounter
--- OUTSIDE RECORDS SUMMARY | 2024-07-10 14:15 | XMS_ITS | Encounter Summary ---
Author Organization [facility] Address [address] [place] [address] Care Team Providers Care Attendant Arcade Name Role Phone Name, Kiel BAILEY Primary Care Provider Unavailabl e Name, Kiel BAILEY Primary Care Provider Unavailabl e Philly Vela DO Primary Care Pro vider Unavailable Name, Kiel BAILEY Primary Care Provider Unavailabl e Encounter Details Date Type Department Care Team Description 06/15/2011 Lead Ramp Agent Report Medical Records [address] [place] [address] Mohini Ellis NP Social History Tobacco Use [...] on filedocumented in this encounter Care Teams Attendant Arcade Relationship Specialty Start Date End Date Deena, MD Kiel PCP - General 05/26/09 04/27/15 Kiel Shaffer MD PCP - General Internal Medicine 04/28/15 05/05/15 Philly Vela DO PCP - General Internal Medicine 05/06/15 08/27/15 Kiel Shaffer MD PCP - General Internal Medicine 08/28/15 documented as of this encounter
--- OUTSIDE RECORDS SUMMARY | 2024-07-10 14:15 | XMS_ITS | Encounter Summary ---
Author Organization [employer] Address [address] [place] [address] 7t [place] [address] Care Team Providers Care Physician Aide Name Role Phone Name, Kiel BAILEY Primary Care Provider [phone] Katlyn Rodriguez PharmD Unavailable Reason for Visit * Reason Comments Med Refill Encounter Details Date Type Department Care Team (Late st Contact Info) Description 07/02/[address] [facility] MEDICINE [address] [place] [address] Name, MD Kiel [address] [place] [address] Chronic pain syndrome Social History Tobacco Use [...] Upcoming Encounters Date Type Department Care Team ([facility] Contact Info) Description 07/12/2024 9:30 AM EDT Medication Management [facility] MEDICINE [address] [place] [address] Katlyn Rodriguez PharmD [address] [place] [address] 07/27/2024 10:00 AM EDT Office Visit [address] [address] Name, [place] [address] 08/20/2024 9:30 AM EDT Clinical Support [address] [address] Opal Steiner RN documented as of this encounter Visit Diagnoses Diagnosis Chronic pain syndrome documented in this encounter Care Teams Physician Aide Relationship Specialty Start Date End Date Name, MD Kiel [address] [place] [address] PCP - General Family Medicine 07/15/15 Katlyn Rodriguez, PharmD [address] [place] [address] Pharmacist Internal Medicine 10/08/22 Marta Ovalle Patient Svcs MgrNecktie Turner 05/25/23 documented as of this encounter
--- OUTSIDE RECORDS SUMMARY | 2024-07-10 14:15 | XMS_ITS | Encounter Summary ---
Author Organization [facility] Address [address] [place] [address] Care Team Providers Care Optical Glass Etcher Name Role Phone Philly Vela DO Primary Care Pro vider Unavailable Kiel Shaffer MD Primary Care Provider Unavailabl e Encounter Details Date Type Department Care Team Description 07/22/2015 [place] Actor Report Medical Records [address] [place] [address] Miguel Angel Echevarria PA-C Social History Tobacco [...] on filedocumented in this encounter Care Teams Optical Glass Etcher Relationship Specialty Start Date End Date Philly Vela DO PCP - General Internal Medicine 05/06/15 08/27/15 Kiel Shaffer MD PCP - General Internal Medicine 08/28/15 documented as of this encounter
--- OUTSIDE RECORDS SUMMARY | 2024-07-10 14:15 | XMS_ITS | Encounter Summary ---
Author Organization [employer] Address [address] [facility] 7t [place] [address] Care Team Providers Care Docket Clerk Name Role Phone Name, Kiel BAILEY Primary Care Provider [phone] Katlyn Rodriguez PharmD Unavailable [phone] Encounter Details Date Type Department Care Team ([facility] Contact Info) Description 07/01/2022 Abstract [facility] [address] [place] [address] Name, MD Kiel [address] [place] [address] Social History Tobacco Use Types Packs/Day Years [...] Description 07/12/2024 9:30 AM EDT Medication Management [facility] [address] [place] [address] Katlyn Rodriguez PharmD [address] [place] [address] 07/27/2024 10:00 AM EDT Office Visit [address] [address] Name, MD Kiel [address] [place] [address] 08/20/2024 9:30 AM EDT Clinical Support [address] [address] Opal Steiner, MARINA documented as of this encounter Visit Diagnoses Not on filedocumented in this encounter Care Teams Docket Clerk Relationship Specialty Start Date End Date Name, MD Kiel [address] [place] [address] PCP - General Family Medicine 07/15/15 Katlyn Rodriguez, PharmD [address] [place] [address] Pharmacist Internal Medicine 10/08/22 Marta Ovalle Analyst Competitive IntelligenceField Placement Director 05/25/23 documented as of this encounter
--- OUTSIDE RECORDS SUMMARY | 2024-07-10 14:15 | XMS_ITS | Encounter Summary ---
Author Organization [facility] Address [address] [place] [address] Care Team Providers Care Control Operator Name Role Phone NameKiel MD Primary Care Provider Unavailabl e Encounter Details Date Type Department Care Team Description 12/12/2015 Transfer Records Medical Records [address] [place] [address] Balaji Johnson DO Social History Tobacco Use [...] on filedocumented in this encounter Care Teams Control Operator Relationship Specialty Start Date End Date Name, MD Kiel PCP - General Internal Medicine 08/28/15 documented as of this encounter
--- OUTSIDE RECORDS SUMMARY | 2024-07-10 14:15 | XMS_ITS | Encounter Summary ---
Author Organization [facility] Address [address] [place] [address] Care Team Providers Care Rescue Boat Operator Name Role Phone Name, Kiel BAILEY Primary Care Provider Unavailabl e Name, Kiel BAILEY Primary Care Provider Unavailabl e Philly Vela DO Primary Care Pro vider Unavailable Name, Kiel BAILEY Primary Care Provider Unavailabl e Encounter Details Date Type Department Care Team Description 11/24/2014 Hospital Medical Records [address] [place] [address] Social History Tobacco Use Types Packs/Day Years [...] on filedocumented in this encounter Care Teams Rescue Boat Operator Relationship Specialty Start Date End Date Kiel Shaffer MD PCP - General 05/26/09 04/27/15 Kiel Shaffer MD PCP - General Internal Medicine 04/28/15 05/05/15 Philly Vela DO PCP - General Internal Medicine 05/06/15 08/27/15 Kiel Shaffer MD PCP - General Internal Medicine 08/28/15 documented as of this encounter
--- OUTSIDE RECORDS SUMMARY | 2024-07-10 14:15 | XMS_ITS | Encounter Summary ---
Author Organization [facility] Address [address] [place] [address] Care Team Providers Care Liner Assembler Name Role Phone NameKiel MD Primary Care Provider Unavailabl e Encounter Details Date Type Department Care Team Description 04/03/2016 Release of Information Medical Records [address] [place] [address] Abstract, Provider Social History Tobacco Use Types [...] on filedocumented in this encounter Care Teams Liner Assembler Relationship Specialty Start Date End Date Name, MD Kiel PCP - General Internal Medicine 08/28/15 documented as of this encounter
--- OUTSIDE RECORDS SUMMARY | 2024-07-10 14:15 | XMS_ITS | Encounter Summary ---
Author Organization [employer] Address [address] [place] [address] 7t [place] [address] Care Team Providers Care Dump Operator Name Role Phone Name, Kiel BAILEY Primary Care Provider [phone] Katlyn Rodriguez PharmD Unavailable Reason for Visit * Reason Comments Med Refill Encounter Details Date Type Department Care Team ([facility] Contact Info) Description 07/16/2022 Refill [facility] [address] [place] [address] Name, MD Kiel [address] [place] [address] Chronic pain syndrome Social History Tobacco Use [...] Upcoming Encounters Date Type Department Care Team ([facility] st Contact Info) Description 07/12/2024 9:30 AM EDT Medication Management [address] [address] Katlyn Rodriguez PharmD [address] [place] [address] 07/27/2024 10:00 AM EDT Office Visit [address] [address] Name, MD Kiel [address] [place] [address] 08/20/2024 9:30 AM EDT Clinical Support [address] [address] Opal Steiner, RN documented as of this encounter Visit Diagnoses Diagnosis Chronic pain syndrome documented in this encounter Additional Health Concerns Assessment Noted Time PHQ-9 Depression Total Score: 7 07/15/19 2:39 PM EDT documented as of this encounter Care Teams Dump Operator Relationship Specialty Start Date End Date Name, MD Kiel [address] [place] [address] PCP - General Family Medicine 07/15/15 Katlyn Rodriguez PharmD [address] [place] [address] Pharmacist Internal Medicine 10/08/22 Marta Ovalle Strickler AttendantMoving Van Driver 05/25/23 documented as of this encounter
--- OUTSIDE RECORDS SUMMARY | 2024-07-10 14:15 | XMS_ITS | Clinical Summary ---
Author Organization [facility] Address [address] [place] [address] Phone Care Team Providers Care Endocrinologist Name Role Phone Name, Kiel BAILEY Primary Care Provider Allergies Active Allergy Reactions Criticality Noted Date [...] Problem Noted Date Diagnosed Date COPD exacerbation ([facility] V24, [facility] V28) Abnormal nuclear stress test 11/06/2014 Rib fracture 12/24/2013 Overview (12/12/2023): Non displaced, probable froacture on the right ninth and tenth Abdominal pain 08/15/2013 Lipoma of abdominal wall 11/02/2011 Visual field defect 03/29/2011 Cocaine abuse, episodic use ([facility] V24, [facility] V28) 06/17/2010 Low back pain radiating to left leg 10/08/2009 Overview (12/12/2023): The patient follows with [facility] and is treated with injections to the LS. Asthmatic bronchitis , chronic ([facility] V24, [facility] V28) 07/07/2009 Overview (12/12/2023): Severe and worse in the spring. Last hospitalazion in May and 3 ER visits Hospital 08/02 Known medical problems 06/05/2009 Tobacco use disorder 06/05/2009 Hypertriglyceridemia 06/05/2009 Morbid obesity ([facility] V24, [facility] V28) 2009 Overview (12/12/2023): BMI 48.37 [...] TOTAL HYSTERECTOMY WITH BSO; COMMENT: for bleeding, [facility] Medical History Medical History Date Comments Type II or unspecified type diabetes mellitus with unspecified complication, not stated as uncontrolled DX:Type II or unspecified t ype diabetes mellitus with unspecified complication, not stated as uncontrolled Unspecified essential hypertension DX:Unspecified essential hypertension Tobacco abuse DX:Tobacco abuse RAD (reactive airway disease) DX :RAD (reactive airway disease) Morbid obesity ([facility] V24, [facility] V28) DX:Morbid obesity (HCC) Asthmatic bronchitis , chron ic ([facility] V24, [facility] V28) 07/07/2009 DX:Asthmatic bronchitis , ch ronic ([facility]) Hypertriglyceridemia 06/05/2009 DX:Hypertri glyceridemia Rib fracture 12/24/2013 DX:Rib fracture Family History Medical History Relation Name Comments Blindness Brother 1 Breast cancer Maternal Grandmother Cataracts Maternal Grandmother Blindness Mother Glaucoma Neg Hx Macular degeneration Neg Hx Strabismus Neg Hx Relation Name Status Comments Brother 1 Brother 2 [place] Brother 3 Alive 6 brothers are diabetic [...] AM EDT Office Visit [facility] [place] [address] [phone] Wesley Garcia, DPM [address] [address] Health Maintenance Due Date Last Done Comments [...] METHOD 02/06/2024 3:36 AM [facility] eGFR 99 >=60 mL/min/1. 73m2 [...] [facility] BLOOD ORDERABLES Final R esult [facility] [address] [place] [address], * (ABNORMAL) Hemoglobin A1c (11/20/2014) Pathologist [facility] [...] currently active code status orders. Care Teams Endocrinologist Relationship Specialty Start Date End Date Name, MD Kiel [address] [place], [place] PCP - General Internal Medicine 08/28/15
--- OUTSIDE RECORDS SUMMARY | 2024-07-10 14:15 | XMS_ITS | Encounter Summary ---
Author Organization [employer] Address [address] [place] [address] 7t [place] [address] Care Team Providers Care Career Center Advisor Name Role Phone Name, Kiel BAILEY Primary Care Provider [phone] Katlyn Rodriguez PharmD Unavailable Reason for Visit * Reason Comments Med Refill Encounter Details Date Type Department Care Team (Late st Contact Info) Description 06/28/2022 Refill [facility] MEDICINE [address] [place] [address] Name, MD Kiel [address] [place] [address] Chronic pain syndrome Social History Tobacco Use [...] Encounters Date Type Department Care Team ([facility] Contact Info) Description 07/12/2024 9:30 AM EDT Medication Management [facility] MEDICINE [address] [place] [address] Katlyn Rodriguez PharmD [address] [place] [address] 07/27/2024 10:00 AM EDT Office Visit [address] [address] Name, [place] [address] 08/20/2024 9:30 AM EDT Clinical Support [address] [address] Opal Steiner RN documented as of this encounter Visit Diagnoses Diagnosis Chronic pain syndrome documented in this encounter Care Teams Career Center Advisor Relationship Specialty Start Date End Date Name, MD Kiel [address] [place] [address] PCP - General Family Medicine 07/15/15 Katlyn Rodriguez, PharmD [address] [place] [address] Pharmacist Internal Medicine 10/08/22 Marta Ovalle Pocket Secretary AssemblerProfessor Of German 05/25/23 documented as of this encounter
--- OUTSIDE RECORDS SUMMARY | 2024-07-10 14:15 | XMS_ITS | Encounter Summary ---
Author Organization [facility] Address [address] [place] [address] Care Team Providers Care Transportation Aide Name Role Phone Name, Kiel BAILEY Primary Care Provider Unavailabl e Name, Kiel BAILEY Primary Care Provider Unavailabl e Philly Vela DO Primary Care Pro vider Unavailable Name, Kiel BAILEY Primary Care Provider Unavailabl e Encounter Details Date Type Department Care Team Description 09/20/2011 Plug And Mold Finisher Report Medical Records [address] [place] [address] Edy Lal MD Social History Tobacco Use [...] on filedocumented in this encounter Care Teams Transportation Aide Relationship Specialty Start Date End Date Kiel Shaffer MD PCP - General 05/26/09 04/27/15 Kiel Shaffer MD PCP - General Internal Medicine 04/28/15 05/05/15 Philly Vela DO PCP - General Internal Medicine 05/06/15 08/27/15 Kiel Shaffer MD PCP - General Internal Medicine 08/28/15 documented as of this encounter
--- OUTSIDE RECORDS SUMMARY | 2024-07-10 14:15 | XMS_ITS | Encounter Summary ---
Author Organization [facility] Address [address] [place] [address] Care Team Providers Care Stereotyper Apprentice Name Role Phone NameKiel MD Primary Care Provider Unavailabl e Encounter Details Date Type Department Care Team Description 01/27/2021 Fabricator Industrial Furnace Report Medical Records [address] [place] [address] Abstract, Provider Social History Tobacco Use Types [...] on filedocumented in this encounter Care Teams Stereotyper Apprentice Relationship Specialty Start Date End Date Name, MD Kiel PCP - General Internal Medicine 08/28/15 documented as of this encounter
--- OUTSIDE RECORDS SUMMARY | 2024-07-10 14:15 | XMS_ITS | Encounter Summary ---
Author Organization [employer] Address [address] [place] [address] 7t [place] [address] Care Team Providers Care Computer Numerical Control Operator Name Role Phone Name, Kiel BAILEY Primary Care Provider [phone] Katlyn Rodriguez PharmD Unavailable [phone] Reason for Visit * Reason Comments Med Refill Encounter Details Date Type Department Care Team (Late Contact Info) Description 04/25/2022 Refill [facility]INE [address] [place] [address] Name, MD Kiel [address] [place] [address] Diabetes mellitus type 2 in obese (CMS/HCC) [...] 07/12/2024 9:30 AM EDT Medication Management [address] [address] Katlyn Rodriguez PharmD [facility] [place] [address] 07/27/2024 10:00 AM EDT Office Visit [address] [address] Name, MD Kiel [facility] [place] [address] 08/20/2024 9:30 AM EDT Clinical Support [address] [address] Opal Steiner RN documented as of this encounter Visit Diagnoses Diagnosis Diabetes mellitus type 2 in obese- Primary Type II or unspecified type diabetes mellitus without mention of complication, not stated as uncontrolled documented in this encounter Care Teams Computer Numerical Control Operator Relationship Specialty Start Date End Date Name, MD Kiel [facility] [place] [address] PCP - General Family Medicine 07/15/15 Katlyn Rodriguez PharmD [address] [place], [place] [address] [place] [address] Pharmacist Internal Medicine 10/08/22 Marta Ovalle PurchaserComputer Drafter 05/25/23 documented as of this encounter
--- OUTSIDE RECORDS SUMMARY | 2024-07-10 14:15 | XMS_ITS | Encounter Summary ---
Author Organization [facility] Address [address] [place] [address] Care Team Providers Care Industrial Engineering Manager Name Role Phone Name, Kiel BAILEY Primary Care Provider Unavailabl e Name, Kiel BAILEY Primary Care Provider Unavailabl e Philly Vela DO Primary Care Pro vider Unavailable Name, Kiel BAILEY Primary Care Provider Unavailabl e Encounter Details Date Type Department Care Team Description 05/04/2011 Manual Winder Report Medical Records [address] [place] [address] Mohini Ellis NP Social History Tobacco Use [...] on filedocumented in this encounter Care Teams Industrial Engineering Manager Relationship Specialty Start Date End Date Kiel Shaffer MD PCP - General 05/26/09 04/27/15 Kiel Shaffer MD PCP - General Internal Medicine 04/28/15 05/05/15 Philly Vela DO PCP - General Internal Medicine 05/06/15 08/27/15 Kiel Shaffer MD PCP - General Internal Medicine 08/28/15 documented as of this encounter
--- OUTSIDE RECORDS SUMMARY | 2024-07-10 14:15 | XMS_ITS | Encounter Summary ---
Author Organization [employer] Address 75 [facility] 7t [place] [address] Care Team Providers Care Document Management Analyst Name Role Phone Name, Kiel BAILEY Primary Care Provider [phone] Katlyn Rodriguez PharmD Unavailable Reason for Visit * Reason Comments Med Refill Encounter Details Date Type Department Care Team ([facility] Contact Info) Description 02/10/2022 Refill [facility] [address] [place], [place] [phone] Name, MD Kiel [address] [place] [address] Chronic pain syndrome (Primary Dx) Social History [...] Upcoming Encounters Date Type Department Care Team ([facility] Contact Info) Description 07/12/2024 9:30 AM EDT Medication Management [facility] [address] [place] [address] Katlyn Rodriguez PharmD [address] [place] [address] 07/27/2024 10:00 AM EDT Office Visit [address] [address] Name, MD Kiel [address] [place] [address] 08/20/2024 9:30 AM EDT Clinical Support [address] [address] Opal Steiner RN documented as of this encounter Visit Diagnoses Diagnosis Chronic pain syndrome- Primary documented in this encounter Care Teams Document Management Analyst Relationship Specialty Start Date End Date Name, MD Kiel [address] [place] [address] PCP - General Family Medicine 07/15/15 Katlyn Rodriguez, PharmD [address] [place] [address] Pharmacist Internal Medicine 10/08/22 Marta Ovalle Concrete Buster OperatorBehavioral Health Assistant 05/25/23 documented as of this encounter
--- OUTSIDE RECORDS SUMMARY | 2024-07-10 14:15 | XMS_ITS | Encounter Summary ---
Author Organization [facility] Address [address] [place] [address] Care Team Providers Care Water Pumping Station Engineer Name Role Phone Name, Kiel BAILEY Primary Care Provider [phone] Encounter Details Date Type Department Care Team (Late st Contact Info) Description 11/24/2023 9:53 AM EDT Hospital Encounter TH HISTORIC ENCOUNTERS EASTERN CONVERSION ONLY Geoffrey-Art Vitale MD [address] [place] [address] Social History Tobacco Use Types [...] 2:17 PM Encounter Date: 11/24/2023 Status: Signed Diet Clerk: Art Davis MD (Physician) CHIEF COMPLAINT: Chief Complaint Patient presents with ? Follow-up Diffuse large B-cell lymphoma Stage III Completed 6 cycles of R-CHOP in July 23, 2018 IDENTIFIER:Sarita Puga is a 58 y.o. female. HPI: The patient returns for follow up of Large B-cell lymphoma. Here with her daughter , who is nigerien to vietnamese stretcher drier operator Patient reports that she has been doing [...] her daughter and girlfriend. As Telugu to Portuguese stretcher drier operator assisted with the discussion. She had a [...] AM EDT Office Visit Orthopedic Surgery - [place] [address] [phone] Wesley Garcia DPM [address] [address] documented as of this encounter Procedures Procedure [...] as of this encounter Care Teams Water Pumping Station Engineer Relationship Specialty Start Date End Date Name, MD Kiel [address] [place], [place] PCP - General Internal Medicine 08/28/15 documented as of this encounter
--- OUTSIDE RECORDS SUMMARY | 2024-07-10 14:15 | XMS_ITS | Encounter Summary ---
Author Organization [facility] Address [address] [place] [address] Care Team Providers Care Furnace Liner Name Role Phone NameKiel MD Primary Care Provider Unavailabl e Encounter Details Date Type Department Care Team Description 01/13/2021 Orders Only Cardio PVCA Diag Testing [address] [place] [address] [place] [address] Doreen Villatoro PA Chest pain, unspecified type [...] Primary documented in this encounter Care Teams Furnace Liner Relationship Specialty Start Date End Date Name, MD Kiel PCP - General Internal Medicine 08/28/15 documented as of this encounter
--- OUTSIDE RECORDS SUMMARY | 2024-07-10 14:15 | XMS_ITS | Clinical Summary ---
Author Organization [facility] Address [address] [place] [address] Care Team Providers Care Braid Folder Name Role Phone Name, Kiel BAILEY Primary Care Provider [phone] Allergies Active Allergy Reactions Criticality Noted Date [...] age to complete this topic Care Teams Braid Folder Relationship Specialty Start Date End Date Name, MD Kiel [address] [facility] [address] [place] [address] PCP - General Internal Medicine 04/17/18
--- OUTSIDE RECORDS SUMMARY | 2024-07-10 14:15 | XMS_ITS | Encounter Summary ---
Author Organization [facility] Address [address] [place] [address] Care Team Providers Care Livestock Farmworker Name Role Phone Name, Kiel BAILEY Primary Care Provider Unavailabl e Name, Kiel BAILEY Primary Care Provider Unavailabl e Philly Vela DO Primary Care Pro vider Unavailable Name, Kiel BAILEY Primary Care Provider Unavailabl e Encounter Details Date Type Department Care Team Description 01/26/2011 Home Health Certification Medical Records [address] [place] [address] Vna Social History Tobacco Use Types Packs/Day [...] on filedocumented in this encounter Care Teams Livestock Farmworker Relationship Specialty Start Date End Date Kiel Shaffer MD PCP - General 05/26/09 04/27/15 Kiel Shaffer MD PCP - General Internal Medicine 04/28/15 05/05/15 Philly Vela DO PCP - General Internal Medicine 05/06/15 08/27/15 Kiel Shaffer MD PCP - General Internal Medicine 08/28/15 documented as of this encounter
--- OUTSIDE RECORDS SUMMARY | 2024-07-10 14:16 | XMS_ITS | Encounter Summary ---
Author Organization [facility] Address [address] [place] [address] Care Team Providers Care Rags Laborer Name Role Phone Name, Kiel BAILEY Primary Care Provider Unavailabl e Name, Kiel BAILEY Primary Care Provider Unavailabl e Philly Vela DO Primary Care Pro vider Unavailable Name, Kiel BAILEY Primary Care Provider Unavailabl e Encounter Details Date Type Department Care Team Description 08/13/2010 Federal Appellate Law Clerk Report Medical Records [address] [place] [address] Shon Blanca Social History Tobacco Use Types [...] on filedocumented in this encounter Care Teams Rags Laborer Relationship Specialty Start Date End Date Deena, MD Kiel PCP - General 05/26/09 04/27/15 Kiel Shaffer MD PCP - General Internal Medicine 04/28/15 05/05/15 hPilly Vela DO PCP - General Internal Medicine 05/06/15 08/27/15 Kiel Shaffer MD PCP - General Internal Medicine 08/28/15 documented as of this encounter
--- OUTSIDE RECORDS SUMMARY | 2024-07-10 14:16 | XMS_ITS | Encounter Summary ---
Author Organization [facility] Address [address] [place] [address] Care Team Providers Care Special Machine Operator Name Role Phone Name, Kiel BAILEY Primary Care Provider Unavailabl e Name, Kiel BAILEY Primary Care Provider Unavailabl e Philly Vela DO Primary Care Pro vider Unavailable Name, Kiel BAILEY Primary Care Provider Unavailabl e Encounter Details Date Type Department Care Team Description 11/06/2010 Golf Course Starter Report Medical Records [address] [place] [address] Quinton Luther Social History Tobacco Use Types [...] filedocumented in this encounter Care Teams Special Machine Operator Relationship Specialty Start Date End Date Kiel Shaffer MD PCP - General 05/26/09 04/27/15 Kiel Shaffer MD PCP - General Internal Medicine 04/28/15 05/05/15 Philly Vela DO PCP - General Internal Medicine 05/06/15 08/27/15 Kiel Shaffer MD PCP - General Internal Medicine 08/28/15 documented as of this encounter
--- OUTSIDE RECORDS SUMMARY | 2024-07-10 14:16 | XMS_ITS | Encounter Summary ---
Author Organization [facility] Address [address] [place] [address] Care Team Providers Care Take Off Worker Name Role Phone Name, Kiel BAILEY Primary Care Provider Unavailabl e Name, Kiel BAILEY Primary Care Provider Unavailabl e Philly Vela DO Primary Care Pro vider Unavailable Name, Kiel BAILEY Primary Care Provider Unavailabl e Reason for Visit * Reason Onset Date Comments Faxed Order 11/27/2013 Encounter Details Date Type Department Care Team Description 11/27/2013 Telephone Adult Medicine [address] [address] Name, MD Kiel Faxed Order Social History [...] - 11/27/2013 10:03 AM EDT Please review AIR TRANSPORTATION PROVIDER re-evaluation, sign and fax back to Soren at [phone]. documented in this encounter Plan of Treatment Not on file documented as of this encounter Visit Diagnoses Not on filedocumented in this encounter Care Teams Take Off Worker Relationship Specialty Start Date End Date Name, MD Kiel PCP - General 05/26/09 04/27/15 Name, MD Kiel PCP - General Internal Medicine 04/28/15 05/05/15 Philly Vela DO PCP - General Internal Medicine 05/06/15 08/27/15 Name, MD Kiel PCP - General Internal Medicine 08/28/15 documented as of this encounter
--- OUTSIDE RECORDS SUMMARY | 2024-07-10 14:16 | XMS_ITS | Encounter Summary ---
Author Organization [employer] Address [address] [place] [address] 7t [place] [address] Care Team Providers Care Healthcare Risk Control Consultant Name Role Phone Name, Kiel BAILEY Primary Care Provider [phone] Katlyn Rodriguez PharmD Unavailable [phone] Encounter Details Date Type Department Care Team ([facility] Contact Info) Description 08/26/2022 Orders Only [facility] [address] [place] [phone] Leia Gonzales LPN Social History Tobacco [...] Care Team ([facility] Contact Info) Description 07/12/2024 9:30 AM EDT Medication Management [facility] [address] [place] [address] [phone] Katlyn Rodriguez PharmD [facility] [place] [address] 07/27/2024 10:00 AM EDT Office [address] [place] [address] Name, [place] [address] 08/20/2024 9:30 AM EDT Clinical Support [address] [place] [address] Opal Steiner RN documented as of this encounter Visit Diagnoses Not on filedocumented in this encounter Additional Health Concerns Assessment Noted Time PHQ-9 Depression Total Score: 7 07/15/19 23 2:39 PM EDT documented as of this encounter Care Teams Healthcare Risk Control Consultant Relationship Specialty Start Date End Date Name, MD Kiel [facility] [place] [address] PCP - General Family Medicine 07/15/15 Katlyn Rodriguez PharmD [address] [place], [place] [address] [address] Pharmacist Internal Medicine 10/08/22 Marta Ovalle Office CorrespondentInspector Metal Fabricating 05/25/23 documented as of this encounter
--- OUTSIDE RECORDS SUMMARY | 2024-07-10 14:16 | XMS_ITS | Encounter Summary ---
Author Organization [facility] Address [address] [place] [address] Care Team Providers Care Crane Assembler Name Role Phone Name, Kiel BAILEY Primary Care Provider Unavailabl e Name, Kiel BAILEY Primary Care Provider Unavailabl e Philly Vela DO Primary Care Pro vider Unavailable Name, Kiel BAILEY Primary Care Provider Unavailabl e Encounter Details Date Type Department Care Team Description 01/14/2011 Hospital Medical Records [address] [place] [address] Ania Reid Social History Tobacco Use Types [...] on filedocumented in this encounter Care Teams Crane Assembler Relationship Specialty Start Date End Date Kiel Shaffer MD PCP - General 05/26/09 04/27/15 Kiel Shaffer MD PCP - General Internal Medicine 04/28/15 05/05/15 Philly Vela DO PCP - General Internal Medicine 05/06/15 08/27/15 Kiel Shaffer MD PCP - General Internal Medicine 08/28/15 documented as of this encounter
--- OUTSIDE RECORDS SUMMARY | 2024-07-10 14:16 | XMS_ITS | Encounter Summary ---
Author Organization [employer] Address [address] [facility] 7t [place] [address] Care Team Providers Care Mold Chipper Name Role Phone Name, Kiel BAILEY Primary Care Provider [phone] Katlyn Rodriguez PharmD Unavailable [phone] Reason for Visit * Reason Onset Date Comments Durable Medical Equipment 01/24/2023 Encounter Details Date Type Department Care Team ([facility] st Contact Info) Description 01/24/2023 Telephone [facility] [address] [place] [address] Name, MD Kiel [address] [place] [address] Durable Medical Equipment Social History Tobacco Use [...] to errol. Any questions, contact pt at [phone] documented in this encounter Plan of Treatment Upcoming Encounters Date Type Department Care Team (Late st Contact Info) Description 07/12/2024 9:30 AM EDT Medication Management [address] [address] Katlyn Rodriguez PharmD [address] [place] [address] 07/27/2024 10:00 AM EDT Office Visit [address] [address] Name, MD Kiel [address] [place] [address] 08/20/2024 9:30 AM EDT Clinical Support [address] [phone] Opal Steiner, RN documented as of this encounter Goals Goal Patient Goal Type Associated Problems Recent Progress Patient-Stated? Author Record your blood pressure once per day Blood Pressure No Katlyn Rodriguez PharmSusan Blood Pressure < 140/90 Blood Pressure 81/56( [...] documented as of this encounter Care Teams Mold Chipper Relationship Specialty Start Date End Date Name, MD Kiel [address] [place] [address] PCP - General Family Medicine 07/15/15 Katlyn Rodriguez, PharmD [address] [place] [address] Pharmacist Internal Medicine 10/08/22 Marta Ovalle Rental Car DelivererDeputy Chief Magistrate 05/25/23 documented as of this encounter
--- OUTSIDE RECORDS SUMMARY | 2024-07-10 14:16 | XMS_ITS | Encounter Summary ---
Author Organization [facility] Address [address] [place] [address] Care Team Providers Care Director Of Contracts Name Role Phone Name, Kiel BAILEY Primary Care Provider Unavailabl e Name, Kiel BAILEY Primary Care Provider Unavailabl e Philly Vela DO Primary Care Pro vider Unavailable Name, Kiel BAILEY Primary Care Provider Unavailabl e Encounter Details Date Type Department Care Team Description 09/16/2010 Information Security Risk Analyst Report Medical Records [address] [place] [address] Shon Blanca Social History Tobacco Use Types [...] filedocumented in this encounter Care Teams Director Of Contracts Relationship Specialty Start Date End Date Deena, MD Kiel PCP - General 05/26/09 04/27/15 Kiel Shaffer MD PCP - General Internal Medicine 04/28/15 05/05/15 Philly Vela DO PCP - General Internal Medicine 05/06/15 08/27/15 Kiel Shaffer MD PCP - General Internal Medicine 08/28/15 documented as of this encounter
--- OUTSIDE RECORDS SUMMARY | 2024-07-10 14:16 | XMS_ITS | Encounter Summary ---
Author [facility] Address [address] [place] [address] Care Team Providers Care Manager Meeting Name Role Phone Name, Kiel BAILEY Primary Care Provider Unavailabl e Name, Kiel BAILEY Primary Care Provider Unavailabl e Philly Vela DO Primary Care Pro vider Unavailable Name, Kiel BAILEY Primary Care Provider Unavailabl e Encounter Details Date Type Department Care Team Description 06/01/2010 Handle Turner Report Medical Records [address] [place] [address] Shon Blanca Social History Tobacco Use Types [...] on filedocumented in this encounter Care Teams Manager Meeting Relationship Specialty Start Date End Date Deena, MD Kiel PCP - General 05/26/09 04/27/15 Kiel Shaffer MD PCP - General Internal Medicine 04/28/15 05/05/15 Philly Vela DO PCP - General Internal Medicine 05/06/15 08/27/15 Kiel Shaffer MD PCP - General Internal Medicine 08/28/15 documented as of this encounter
--- OUTSIDE RECORDS SUMMARY | 2024-07-10 14:16 | XMS_ITS | Encounter Summary ---
Author Organization [facility] Address [address] [place] [address] Care Team Providers Care Blade Groover Name Role Phone Name, Kiel BAILEY Primary Care Provider Unavailabl e Name, Kiel BAILEY Primary Care Provider Unavailabl e Philly Vela DO Primary Care Pro vider Unavailable Name, Kiel BAILEY Primary Care Provider Unavailabl e Encounter Details Date Type Department Care Team Description 02/24/2013 Hospital Medical Records [address] [place] [address] Desilets, Shamir Mims MD Social History Tobacco [...] on filedocumented in this encounter Care Teams Blade Groover Relationship Specialty Start Date End Date Kiel Shaffer MD PCP - General 05/26/09 04/27/15 Kiel Shaffer MD PCP - General Internal Medicine 04/28/15 05/05/15 Philly Vela DO PCP - General Internal Medicine 05/06/15 08/27/15 Kiel Shaffer MD PCP - General Internal Medicine 08/28/15 documented as of this encounter
--- OUTSIDE RECORDS SUMMARY | 2024-07-10 14:16 | XMS_ITS | Encounter Summary ---
Author Organization [facility] Address [address] [place] [address] Care Team Providers Care Inbound Customer Service Representative Name Role Phone Name, Kiel BAILEY Primary Care Provider Unavailabl e Name, Kiel BAILEY Primary Care Provider Unavailabl e Philly Vela DO Primary Care Pro vider Unavailable Name, Kiel BAILEY Primary Care Provider Unavailabl e Encounter Details Date Type Department Care Team Description 10/14/2010 Shot Blast Equipment Operator Report Medical Records [address] [place] [address] Kenny Richards Social History Tobacco Use Types Packs/Day Years [...] on filedocumented in this encounter Care Teams Inbound Customer Service Representative Relationship Specialty Start Date End Date Kiel Shaffer MD PCP - General 05/26/09 04/27/15 Kiel Shaffer MD PCP - General Internal Medicine 04/28/15 05/05/15 Philly Vela DO PCP - General Internal Medicine 05/06/15 08/27/15 Kiel Shaffer MD PCP - General Internal Medicine 08/28/15 documented as of this encounter
--- OUTSIDE RECORDS SUMMARY | 2024-07-10 14:16 | XMS_ITS | Encounter Summary ---
Author Organization [facility] Address [address] [place] [address] Care Team Providers Care Tray Filler Name Role Phone Name, Kiel BAILEY Primary Care Provider Unavailabl e Name, Kiel BAILEY Primary Care Provider Unavailabl e Philly Vela DO Primary Care Pro vider Unavailable Name, Kiel BAILEY Primary Care Provider Unavailabl e Encounter Details Date Type Department Care Team Description 09/02/2010 Box Chipper Report Medical Records [address] [place] [address] Shon Blanca Social History Tobacco Use Types [...] on filedocumented in this encounter Care Teams Tray Filler Relationship Specialty Start Date End Date Deena, MD Kiel PCP - General 05/26/09 04/27/15 Kiel Shaffer MD PCP - General Internal Medicine 04/28/15 05/05/15 Philly Vela DO PCP - General Internal Medicine 05/06/15 08/27/15 Kiel Shaffer MD PCP - General Internal Medicine 08/28/15 documented as of this encounter
--- OUTSIDE RECORDS SUMMARY | 2024-07-10 14:16 | XMS_ITS | Encounter Summary ---
Author Organization [facility] Address [address] [place] [address] Care Team Providers Care [facility] Office Supervisor Name Role Phone Name, Kiel BAILEY Primary Care Provider [phone] Encounter Details Date Type Department Care Team (Late Contact Info) Description 11/24/2023 10:30 AM EDT Hospital Encounter TH HISTORIC ENCOUNTERS EASTERN CONVERSION ONLY Geoffrey-Art Vitale MD [address] [place] [phone] Social History Tobacco Use Types Packs/Day Years [...] 9:45 AM EDT Office Visit Orthopedic Surgery [facility] [address] [facility] [address] [place] [phone] Wesley Garcia, DPM [address] [facility] [address] [place] [address] documented as of this encounter Visit Diagnoses Not on filedocumented in this encounter Additional Health Concerns Infection Onset Date Last Indicated Resolved Time Respiratory Rule-Out 02/05/2024 02/05/2024 024 8:09 AM EST COVID-19 Rule-Out 02/05/2024 02/05/2024 02/05/2024 8:09 AM EST documented as of this encounter Care Teams [facility] Office Supervisor Relationship Specialty Start Date End Date Name, MD Kiel [address] [place], [place] PCP - General Internal Medicine 08/28/15 documented as of this encounter
--- OUTSIDE RECORDS SUMMARY | 2024-07-10 14:16 | XMS_ITS | Encounter Summary ---
Author Organization [facility] Address [address] [place] [address] Care Team Providers Care Art Objects Repairer Name Role Phone Name, Kiel BAILEY Primary Care Provider Unavailabl e Name, Kiel BAILEY Primary Care Provider Unavailabl e Philly Vela DO Primary Care Pro vider Unavailable Name, Kiel BAILEY Primary Care Provider Unavailabl e Encounter Details Date Type Department Care Team Description 11/06/2012 Nutritional Services Director Report Medical Records [address] [place] [address] Zack Castro Social History Tobacco Use Types [...] on filedocumented in this encounter Care Teams Art Objects Repairer Relationship Specialty Start Date End Date Kiel Shaffer MD PCP - General 05/26/09 04/27/15 Kiel Shaffer MD PCP - General Internal Medicine 04/28/15 05/05/15 Philly Vela DO PCP - General Internal Medicine 05/06/15 08/27/15 Kiel Shaffer MD PCP - General Internal Medicine 08/28/15 documented as of this encounter
--- OUTSIDE RECORDS SUMMARY | 2024-07-10 14:16 | XMS_ITS | Encounter Summary ---
Author Organization [employer] Address [address] [facility] 7t [place] [address] Care Team Providers Care Raw Stock Drier Tender Name Role Phone Name, Kiel BAILEY Primary Care Provider [phone] Katlyn Rodriguez PharmD Unavailable [phone] Reason for Visit * Reason Onset Date Comments Durable Medical Equipment 12/06/2022 Encounter Details Date Type Department Care Team ([facility] st Contact Info) Description 12/06/2022 Telephone [facility] [address] [place] [address] Name, MD Kiel [address] [place] [address] Durable Medical Equipment Social History Tobacco Use [...] to message above. Please contact pt at [phone] (Belarusian) * Telephone Encounter - Jean-Paul Finch - 12/06/2022 3:29 PM EDT Tc from pt requesting status on some bed absorbant pads to not stain bed. Please contact pt at [phone] Belarusian Speaker documented in this encounter Plan of Treatment Upcoming Encounters Date Type Department Care Team (Late st Contact Info) Description 07/12/2024 9:30 AM EDT Medication Management [facility] [address] [place] [address] Katlyn Rodriguez, PharmD [address] [place] [address] 07/27/2024 10:00 AM EDT Office Visit [facility] [address] [place] [address] Name, [place] [address] 08/20/2024 9:30 AM EDT Clinical Support [address] [address] Opal Steiner RN documented as of this [...] documented as of this encounter Care Teams Raw Stock Drier Tender Relationship Specialty Start Date End Date Name, [place] [address] PCP - General Family Medicine 07/15/15 Puia, Katlyn, PharmD [address] [place] [address] Pharmacist Internal Medicine 10/08/22 Marta Ovalle Cyber Intel PlannerBook Author 05/25/23 documented as of this encounter
--- OUTSIDE RECORDS SUMMARY | 2024-07-10 14:16 | XMS_ITS | Encounter Summary ---
Author Organization [employer] Address [address] [facility] 7t [place] [address] Care Team Providers Care Set Up / Operator Name Role Phone Name, Kiel BAILEY Primary Care Provider [phone] Katlyn Rodriguez PharmD Unavailable Reason for Visit * Reason Onset Date Comments Nurse Triage 07/04/2024 Encounter Details Date Type Department Care Team ([facility] Contact Info) Description 07/04/2024 Telephone [facility]INE [address] [place], [place] [phone] Name, MD Kiel [address] [place] [address] Nurse Triage Social History Tobacco Use Types [...] Triage call with [facility] Manager [employer] [place] [id number]. Pt reports headache over the entire head. No involvement with eye area. BP is 104/60. Pt has been seen by neurologist at [facility] and is being tested for possible tumor. Pt was prescribed dexamethasone byneurologist. Pt pain is moderate . Pt has been prescribed roxicodone 10mg starting 06/28/24 but, reports pharmacy wouldn't fill prescription last time contacted. Pt daughter is speaking for Pt at this time. Daughter is advised to call [facility] for prescription of roxicodone which [...] become worse * Telephone Encounter - Aretha Lagos - 07/04/2024 10:57 AM EDT Symptom: Headache Outcome: Schedule an urgent appointment (within 4 hours) or talk to a nurse or provider soon Reason: Getting worse The caller accepted this outcome. Contact pt at [phone] (qatari) documented in this encounter Plan of Treatment Upcoming Encounters Date Type Department Care Team ([facility] st Contact Info) Description 07/12/2024 9:30 AM EDT Medication Management [address] [address] Puia, Katlyn, PharmD [address] [place] [address] 07/27/2024 10:00 AM EDT Office Visit [address] [address] Name, MD Kiel [address] [place] [address] 08/20/2024 9:30 AM EDT Clinical Support [address] [address] Opal Steiner, MARINA documented as of this [...] documented as of this encounter Care Teams Set Up / Operator Relationship Specialty Start Date End Date Name, MD Kiel [address] [place] [address] PCP - General Family Medicine 07/15/15 Katlny Rodriguez, Bin [address] [place] [address] Pharmacist Internal Medicine 10/08/22 Marta Ovalle Automotive InstructorCostuming Supervisor 05/25/23 documented as of this encounter
--- OUTSIDE RECORDS SUMMARY | 2024-07-10 14:16 | XMS_ITS | Encounter Summary ---
Author Organization [facility] Address [address] [place] [address] Care Team Providers Care Grinder Set Up Operator Jig Name Role Phone Name, Kiel BAILEY Primary Care Provider Unavailabl e Name, Kiel BAILEY Primary Care Provider Unavailabl e Philly Vela DO Primary Care Pro vider Unavailable Name, Kiel BAILEY Primary Care Provider Unavailabl e Encounter Details Date Type Department Care Team Description 12/25/2010 Eye Claim Service Representative Report Medical Records [address] [place] [address] Fei Armstrong Social History Tobacco Use Types [...] on filedocumented in this encounter Care Teams Grinder Set Up Operator Jig Relationship Specialty Start Date End Date Deena, MD Kiel PCP - General 05/26/09 04/27/15 Kiel Shaffer MD PCP - General Internal Medicine 04/28/15 05/05/15 Philly Vela DO PCP - General Internal Medicine 05/06/15 08/27/15 Kiel Shaffer MD PCP - General Internal Medicine 08/28/15 documented as of this encounter
--- OUTSIDE RECORDS SUMMARY | 2024-07-10 14:16 | XMS_ITS | Clinical Summary ---
Author Organization [facility] Address [address] [place] [address] [address] [place] [address] Care Team Providers Care Monotype Operator Name Role Phone Name, Kiel BAILEY Primary Care Provider PuKatlyn albert PharmD Unavailable [phone] Allergies Active Allergy Reactions Criticality Noted [...] spray Administer 0.1 mL into affected nostril(s). 12/19/19 22 Active ipratropium-alb uterol (Combivent Respimat) 20-100 MCG/ACT inhaler Inhale 1 puff every 6 (six) hours. inhale 1 puff by inhalation route 4 times every day ; may take additional puffs as needed not to exceed 6 puffs in 24hrs 08/22/19 22 Active nitroglycerin (Nitrostat) 0.4 MG SL tablet DISSOLVE 1 TABLET UNDER THE TONGUE EVERY 5 MINUTES NEEDED FOR CHEST PAIN. CALL 911 IF NO RELIEF 09/24/19 23 Active Advair HFA 115-21 MCG/ACT inhaler INHALE 2 PUFFS BY MOUTH EVERY TWELVE HOURS FOR ASTHMA / COPD. ADMINISTER WITH SPACER. RINSE MOUTH AFTER USING. 08/28/19 23 Active furosemide (Lasix) 20 MG tablet Take 20 mg by mouth in the morning. 09/24/19 23 Active albuterol (2.5 MG/3ML) 0.083% nebulizer solution INHALE 1 AMPULE USING A NEBULIZER EVERY 6 HOURS NEEDED FOR WHEEZING 75 mL 10/21/19 Active pyridoxine (Vitamin B-6) 100 MG tablet Take 100 mg by mouth in the morning. 01/06/20 23 Active Blood Pressure Monitor kitIndications: Essential hypertension Use to check blood pressure daily 1 kit 05/26/19 24 Active aspirin 81 MG chewable tabletIndicatio ns:Type 2 diabetes mellitus with other specified complication, with long-term current use of insulin ([facility]) Chew 1 tablet (81 mg) in the evening. 90 tablet 07/20/19 24 Active ezetimibe (Zetia) 10 MG tabletIndicatio ns:Type 2 diabetes mellitus with other specified complication, with long-term current use of insulin ([facility]) Take 1 tablet (10 mg) by mouth Once per day. 30 tablet 08/12/19 24 025 Active Blood Glucose Monitoring Suppl (FreeStyle [place] Lite) w/Device kitIndications: Type 2 diabetes mellitus with other specified complication ([facility]/HCC) USE DIRECTED FOUR TIMES DAILY DIRECTED 1 kit 09/07/19 24 Active metFORMIN XR (Glucophage-XR) 500 MG 24 hr tabletIndicatio ns:Type 2 diabetes mellitus with obesity (CMS/HCC) ([facility]) TAKE 1 TABLET BY MOUTH EVERY EVENING 90 tablet 09/14/19 24 Active losartan (Cozaar) 50 MG tabletIndicatio ns:Essential hypertension Take 1 tablet (50 mg) by mouth Once per day. 90 tablet 09/14/19 24 Active meloxicam (Mobic) 7.5 MG tablet Take 1 tablet (7.5 mg) by mouth Once per day. 30 tablet 09/14/19 24 025 Active glucose blood (FREESTYLE LITE) test stripIndication s:Type 2 diabetes mellitus with other specified complication, with long-term current use of insulin ([facility]) Use to test blood sugar up to 4 times daily, as directed. 200 strip 10/20/19 24 Active TRUEplus Lancets 33G miscIndications :Type 2 diabetes mellitus with other specified complication, with long-term current use of insulin ([facility]) Use to test blood sugar four times daily as directed 200 each 10/20/19 24 Active TechLite Plus [place] 32G X 4 MM misc USE FOUR TIMES DAILY DIRECTED 100 each 10/25/19 24 Active acetaminophen (Tylenol 8 Hour) 650 MG ER tablet TAKE 1 TABLET BY MOUTH EVERY 8 HOURS NEEDED FOR MILD PAIN DO NOT BREAK, CRUSH, DISSOLVE OR CHEW 90 tablet 1 01/16/20 24 Active cetirizine (ZyrTEC) 10 MG tablet Take 1 tablet (10 mg) by mouth in the morning. 90 tablet 1 01/16/20 24 Active Diclofenac Sodium 1 % gel Apply 2 g topically if needed in the morning, at noon, in the evening, and at bedtime (pain). 150 g 3 01/24/20 24 Active Alcohol Swabs (Alcohol Prep) 70 % pads USE DIRECTED TWICE DAILY 100 each 01/31/20 24 Active OXcarbazepine (Trileptal) 150 MG tablet Take 150 mg by mouth before breakfast. Has additional RX for 300 mg, 1.5 tabs at bedtime Active Icosapent Ethyl (Vascepa) 1 g capsuleIndicati ons:Type 2 diabetes mellitus with other specified complication, with long-term current use of insulin ([facility]),Hyper triglyceridemia Take 2 capsules (2 g) by mouth with breakfast and with evening meal. 360 capsule 3 02/02/20 24 Active montelukast (Singulair) 10 MG tabletIndicatio ns:Essential hypertension Take 1 tablet (10 mg) by mouth at bedtime. 90 tablet 3 03/23/19 25 Active Calcium Carb-Cholecalci ferol (Calcium + Vitamin D3) 600-5 MG-MCG tabletIndicatio ns:Essential hypertension Take 1 tablet by mouth 2 times daily. 180 tablet 3 03/23/19 25 026 Active metoprolol succinate XL (Toprol-XL) 25 MG 24 hr tabletIndicatio ns:Essential hypertension Take 1 tablet (25 mg) by mouth at bedtime. Do not crush or chew. 90 tablet 3 03/23/19 25 Active lidocaine (Lidoderm) 5 % patch Apply 1 patch topically if needed each day for mild pain. Remove & discard patch within 12 hours or as directed by . 30 patch 3 04/10/19 25 Active cloNIDine (Catapres) 0.1 MG tabletIndicatio ns:Psychophysio logical insomnia TAKE 1 TABLET BY MOUTH AT BEDTIME 30 tablet 1 05/05/19 25 Active PARoxetine (Paxil) 40 MG tablet TAKE 1 TABLET BY MOUTH AT BEDTIME 30 tablet 05/05/19 25 Active baclofen (Lioresal) 10 MG tabletIndicatio ns:Acute exacerbation of chronic low back pain Take 1 tablet (10 mg) by mouth if needed in the morning, at noon, and at bedtime for muscle spasms for up to 7 days. 20 tablet 05/09/19 25 Active OXcarbazepine (Trileptal) 300 MG tablet Take 1.5 tablets (450 mg) by mouth at bedtime. 45 tablet 3 05/09/19 25 Active famotidine (Pepcid) 20 MG tablet TAKE 1 TABLET BY MOUTH TWICE DAILY IN THE MORNING AND IN THE EVENING 180 tablet 06/01/19 25 Active albuterol 108 (90 Base) MCG/ACT inhalerIndicati ons:Moderate asthma with exacerbation, unspecified whether persistent Inhale 2 puffs Every 4-6 hours as needed for wheezing. 18 g 5 06/08/19 25 026 Active Tirzepatide (Mounjaro) 15 MG/0.5ML solution auto-injectorIn dications:Type 2 diabetes mellitus with other specified complication, with long-term current use of insulin ([facility]) Inject 15 mg under the skin 1 (one) time per week. 2 mL 11 06/08/19 25 Active insulin glargine (Lantus SoloStar) 100 UNIT/ML penIndications: Type 2 diabetes mellitus with other specified complication, with long-term current use of insulin ([facility]) Inject 32 units subQ once daily as directed. 15 mL 5 06/08/19 25 Active traZODone (Desyrel) 100 MG tablet Take 100 mg by mouth if needed at bedtime for sleep. 05/10/19 25 Active atorvastatin (Lipitor) 80 MG tabletIndicatio ns:Type 2 diabetes mellitus with other specified complication, with long-term current use of insulin (CMS/[facility]) TAKE 1 TABLET BY MOUTH EVERY EVENING 90 tablet 3 06/19/19 25 Active gabapentin (Neurontin) 600 MG tabletIndicatio ns:Urticaria TAKE 1 TABLET BY MOUTH THREE TIMES DAILY IN THE MORNING, EVENING, AND BEDTIME NEEDED FOR PAIN 90 tablet 1 06/23/19 25 Active dexAMETHasone (Decadron) 4 MG tablet Take 2 mg by mouth Once per day. Active oxyCODONE (Roxicodone) 10 MG immediate release tabletIndicatio ns:Cerebellar mass,Chronic intractable headache, unspecified headache type Take 1 tablet (10 mg) by mouth 3 times daily for 28 days. 84 tablet 06/29/19 25 025 Active atorvastatin (Lipitor) 80 MG tabletIndicatio ns:Type 2 diabetes mellitus with other specified complication, with long-term current use of insulin (CMS/HCC) Take 1 tablet (80 mg) by mouth in the evening. 90 tablet 3 07/20/19 24 025 Discontinued oxyCODONE (Roxicodone) 5 MG immediate release tabletIndicatio ns:Acute left-sided low back pain with left-sided sciatica Take 2 tablets (10 mg) by mouth if needed each day for severe pain for up to 7 days. 14 tablet 01/24/20 24 025 Discontinued(T herapy completed) gabapentin (Neurontin) 600 MG tabletIndicatio ns:Urticaria TAKE 1 TABLET BY MOUTH THREE TIMES DAILY IN THE MORNING, EVENING, AND BEDTIME NEEDED FOR PAIN 90 tablet 1 05/09/19 25 025 Discontinued oxyCODONE (Roxicodone) 10 MG immediate release tabletIndicatio ns:Chronic pain syndrome Take 1 tablet (10 mg) by mouth every 12 (twelve) hours if needed for severe pain for up to 28 days. Do not start before May 18, 2024. 56 tablet 05/19/19 25 025 Discontinued oxyCODONE (Roxicodone) 10 MG immediate release tabletIndicatio ns:Chronic pain syndrome TAKE 1 TABLET BY MOUTH EVERY TWELVE HOURS NEEDED FOR SEVERE PAIN 56 tablet 06/16/19 25 025 Discontinued(D ose adjustment) Hospital, Clinic, or Other Facility Administered Medication Ordered Dose Route Frequency Start Date End Date Status ketorolac (Toradol) injection 30 mgIndications:Acute left-sided thoracic back pain 30 mg IM Once 06/15/2024 06/15/2024 Ended Active Problems Problem Noted Date Diagnosed Date Cerebellar mass 06/28/2024 Chronic, continuous use of opioids 11/29/2023 Overview (11/29/2023): Dx: OA knee 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: 05/03/23 Chronic pain syndrome 05/03/2023 [...] case to [facility] emergency room, patient will go by ambulance [...] tolerate CPAP On nocturnal oxygen Follows with [facility] pulmonary (Bajua) Cocaine abuse, episodic use 06/17/2010 [...] for Paxlovid sent to the pharmacy -Utilized [employer] drug interaction wrapping checker to assess interactions with current med [...] Type Department Care Team Description 07/04/2024 Telephone [facility] [address] [place] [address] Name, MD Kiel Nurse Triage 06/29/2024 Telephone [facility] [address] [place] [address] Kiel Shaffer MD Med Refill (Pt walked in saying she went to pharmacy to pick remover med pharmacy is waiting for signature of pcp for medication Oxycodone. ) 06/29/2024 Telephone [facility] [address] [place] [phone] Kiel Shaffer MD Durable Medical Equipment 06/28/2024 10:00 AM EDT Office Visit [address] [address] Kiel Shaffer MD Cerebellar mass (Primary Dx); Type 2 diabetes mellitus with other specified complication, with long-term current use of insulin ([facility]); Gait instability; Chronic intractable headache, unspecified headache type 06/28/2024 Travel 06/27/[address] [address] Keely Leija MA Chart Prep 06/22/2024 Refill [facility] [address] [place] [address] Kiel Shaffer MD Urticaria 06/21/2024 Patient Outreach [address] [address] Kiel Shaffer MD Transition Of Care (Tcm) (HDF scheduled and SDOH screening negative and Tobacco screening negative) 06/19/2024 Patient Outreach [address] [address] Kiel Shaffer MD 06/19/2024 Patient Outreach [facility] [address] [place] [phone] Kiel Shaffer MD 06/18/2024 Telephone [facility] [address] [place] [address] Yvonne Walls MD 06/18/2024 Orders Only [address] [address] Kiel Shaffer MD 06/15/2024 8:40 AM EDT Office Visit [facility] [address] [address] Victorino Graves MD Acute left-sided thoracic back pain (Primary Dx) 06/15/[address] [place] [address] Kiel Shaffer MD Med Refill 06/12/2024 Refill [facility] [address] [place] [address] Katlyn Rodriguez PharmD Type 2 diabetes mellitus with other specified complication, with long-term current use of insulin ([facility]) 06/08/2024 Refill [facility] [address] [place] [address] Kiel Shaffer MD Chronic pain syndrome 06/08/2024 Refill [facility] [address] [place] [address] Kiel Shaffer MD Chronic pain syndrome 06/08/2024 Refill [facility] [address] [place] [address] Kiel Shaffer MD Chronic pain syndrome 06/07/2024 Refill [facility] [address] [place] [phone] Kiel Shaffer MD Moderate asthma with exacerbation, unspecified whether persistent 06/07/2024 Travel 05/30/2024 Refill [facility] [address] [place] [phone] Sarita Baker MD 05/15/2024 Refill [facility] [address] [place] [address] Kiel Shaffer MD Chronic pain syndrome 05/08/2024 9:20 AM EDT Office Visit [facility] [address] [place] [phone] Kiel Shaffer MD Acute exacerbation of chronic low back pain (Primary Dx) 05/08/2024 Refill [facility] [address] [place] [address] iKel Shaffer MD Urticaria 05/08/2024 Refill [facility] [address] [place] [address] Kiel Shaffer MD 05/08/2024 Travel 05/04/2024 Population Health Risk Score [facility] () Department [address] [place] [id number] Provider, Population Health Generic 05/04/2024 Refill [facility] [address] [place] [phone] Kiel Shaffer MD Psychophysiological insomnia 05/01/2024 Telephone [facility] [address] [place] [address] Kiel Shaffer MD 04/30/2024 Telephone [facility] [address] [place] [phone] Barbara Martinez MA may recalls 04/30/2024 Telephone [facility] [address] [place] [phone] Sarita Baker MD 04/27/2024 1:40 PM EST [facility] [address] [address] Sarita Baker MD Acute left-sided thoracic back pain (Primary Dx); Rib pain 04/21/2024 9:40 AM EST Office Visit [facility] [address] [place] [phone] Lorenzo Chavez MD Back pain, subacute (Primary Dx) 04/21/2024 Travel 04/18/2024 10:40 AM EST Office Visit [facility] [address] [address] Victorino Graves MD Left arm pain (Primary Dx); Left arm swelling; Acute left-sided thoracic back pain 04/16/2024 Refill [facility] [address] [place] [address] Kiel Shaffer MD Chronic pain syndrome from Last 3 Months Immunizations Immunization Administration Dates Next Due HepB-CpG 11/05/2022,10/08/2022 Influenza Injectable Quadriv alant Preservative Free IIV4 MDCK 11/05/2022 Influenza Whole 11/06/2010 Influenza injectable quadriv alent IIV4 with preservative 01/09/2016 Influenza injectable quadriv alent preservative free 11/13/2021,01/21/2021,01/07/2020,12/13,01/30/2018 Influenza, IIV3, injectable 02/03/2016,1 ,12/16/2013,02/23,11/02/2012,10/26/2011,01/13/2011 ,11/03/2010,11/21/2009 Influenza, seasonal, injecta ble, preservative free 11/29/2023 Novel Hliyxloys-[id number], all formulations 05/31/2009 Pneumococcal Conjugate PCV 20 [...] Description 07/12/2024 9:30 AM EDT Medication Management [address] [address] Katlyn Rodriguez, PharmD [address] [place] [address] 07/27/2024 10:00 AM EDT Office Visit [address] [address] Name, MD Kiel [address] [place] [address] 08/20/2024 9:30 AM EDT Clinical Support [address] [address] Opal Steiner, RN Health Maintenance Due Date Last Done Comments CT Colonography 1965 FIT DNA/Cologuard 1965 FIT 1965 FOBT 1965 HIV Screening 1965 Sigmoidoscopy 1965 Disability Screening 1965 Hepatitis C Screening 08/22/1983 Pap Smear [...] history exists Hepatitis B Vaccines Completed 11/05/2022, 08/18/20 23 Influenza Vaccine Completed 11/29/2023, , 11/13/2021, Additional [...] Name Priority Date/Time Associated Diagnosis Comments XR THORACIC SPINE 3 VIEWS Routine 07/06/2024 5:07 PM EDT POCT GLYCATED HEMOGLOBIN, TOTAL Routine 06/28/2024 9:59 AM EDT Type 2 diabetes mellitus with other specified complication, with long-term current use of insulin ([facility]) POCT GLUCOSE Routine 06/28/2024 9:58 AM EDT Type 2 diabetes mellitus with other specified complication, with long-term current use of insulin ([facility]) MR BRAIN W AND WO [...] VENOUS LEFT Routine 04/18/2024 3:59 PM EST BI MAMMOGRAM SCREENING TOMOSYNTHESIS BILATERAL Routine 06/03/2023 8:45 AM EDT ALBUMIN, RANDOM URINE W/CREATININE Routine 05/26/2023 8:27 AM EDT Type 2 diabetes mellitus with other specified complication, with long-term current use of insulin ([facility]/HCC) Rib pain on left side COLONOSCOPY Routine 07/01/2022 4:37 PM EDT DIABETES EYE EXAM Routine 05/26/2022 from Last 3 Months or Most Recently Relevant to Health Maintenance Results * XR Thoracic Spine 3 Views (07/06/2024 5:07 PM EDT) Anatomical Region Laterality Modality Spine, T-spine Radiographic Diana ging 07/06/2024 5:07 PM EDT Narrative 07/06/2024 5:08 PM EDT ? [facility] ?[address] ?[place] [address] ?XRay Report ? Signed ? Patient: Puga,Shilpi ?MR#: [id number] ?? 92 ? : 1965 ?Acct:[id number] ? Age/Sex: 58 / F ?ADM Date: 07/06/24 ? Loc: HO.XRAY ? Attending Dr: Silvia Zacarias CLAM PICKER ? Ordering Physician: Silvia Zacarias NP ?? Date of Service: 07/06/24 ?? Procedure(s): XR thoracic spine 3V ?? Accession Number(s): [id number] ? cc: Kiel Shaffer MD; Silvia Zacarias NP ? CLINICAL HISTORY: pain in thoracic spine --- Additional Notes or Special Instructions: WO ? 3 views thoracic spine ? Comparison: None ? Findings: ?? Mild accentuation of dorsal kyphosis. ?? Otherwise normal alignment with no subluxation. ?? Vertebral body height is maintained. ?? Degenerative changes in mid to lower thoracic spine. ? IMPRESSION: ?? No acute findings. ? This document has been electronically signed by: Jennifer Madison MD on ?? 07/06/2024 17:07:12 ? Dictated By: ?Jennifer Madison MD ? Signed By: ?<Electronically signed by Jennifer Madison MD in OV> ? 07/06/241706 ? DD/ 06 ? TD/TT: 07/06/241706 ? Morning Show Newsc[employer] Producer: ? Procedure Note Jung Bañuelos - 07/09/2024 [place] [address] XRay Report Signed Patient: Sarita Puga [facility]#: [id number] 92 : 1965Acct:[id number] Age/Sex: 58 / FADM Date: 07/06/24 Loc: HO.XRAY Attending Dr: Silvia Zacarias NP Ordering Physician: Silvia Zacarias NP Date of Service: 07/06/24 Procedure(s): XR thoracic spine 3V Accession Number(s): [id number] cc: Kiel Shaffer MD; Silvia Zacarias NP CLINICAL HISTORY: pain in thoracic spine --- Additional Notes or SpecialInstructions: WO 3 views thoracic spine Comparison: None Findings: Mild accentuation of dorsal kyphosis. Otherwise normal alignment with no subluxation. Vertebral body height is maintained. Degenerative changes in mid to lower thoracic spine. IMPRESSION: No acute findings. This document has been electronically signed by: Jennifer Madison MD on 07/06/2024 17:07:12 Dictated By: Jennifer Madison MD Signed By: <Electronically signed by Jennifer Madison MD in OV> 07/06/241706 DD/ 06 TD/TT: 07/06/241706 [employer] Producer: [facility] External Provider IMG XR PROCEDURES Edited Result - Final * (ABNORMAL) POCT HGB A1C (06/28/2024 9:59 AM EDT) Hemoglobin A1C 6.7(A) 4.0 - 6.0 % QC Media Lot # [id number] Lot# Expiration Date ,027 Blood 06/28/2024 9:59 AM EDT Kiel Shaffer MD POINT OF CARE TEST ENTER/EDIT OR DERABLES Final Result * (ABNORMAL) POCT Glucose (06/28/2024 9:58 AM EDT) Only the most recent of2 resultswithin the time period is included. Glucose Blood, POC 205(A) 60 - 200 mg/dL QC Media Lot # [id number] Lot# Expiration Date , Blood Capillary blood specimen / Unknown 06/28/2024 9:58 AM EDT Kiel Shaffer MD POINT OF CARE TEST ENTER/EDIT OR DERABLES Final Result * Mr Brain w/ and w/o Contrast (06/18/2024 8:47 PM EDT) Anatomical Region Laterality Modality Brain Magnetic Resonan ce 06/18/2024 8:47 PM EDT Narrative 06/18/2024 8:49 PM EDT ? [facility] ?[address] ?[place] [address] ? Magnetic Resonance Report ? Signed with Addenda ? Patient: Puga,Shilpi ?MR#: [id number] ?? 92 ? : 1965 ?Acct:[id number] ? Age/Sex: 58 / F ?ADM Date: 06/18/24 ? Loc: HO.IMC ?446-1 ? Attending Dr: Ghulam Galvez DO ? Ordering Physician: Maggie Pfeiffer ?? Date of Service: 06/18/24 ?? Procedure(s): MR head/brain wo/w con ?? Accession Number(s): [id number] ? cc: Maggie Pfeiffer; Name,Kiel BAILEY ?ADDENDUM [...] Brain with and without gadolinium ? Comparison: CT/CA/SR - CT HEAD FOR STROKE - 06/18/24 [...] ? DD/ 46 ? TD/TT: 06/18/242046 ? Morning Show Newscast Producer: ? Procedure Note Sarmad, Jung - 06/18/2024 [place] [address] Magnetic Resonance Report Signed with Addenda Patient: Sarita Puga [facility]#: [id number] 92 : 1965Acct:[id number] Age/Sex: 58 / FADM Date: 06/18/24 Loc: .[facility] 446-[address]: Ghulam Galvez DO Ordering Physician: Maggie Pfeiffer Date of Service: 06/18/24 Procedure(s): MR head/brain wo/w con Accession Number(s): [id number] cc: Maggie Pfeiffer; Name,Kiel BAILEY ADDENDUM This [...] MR Brain with and without gadolinium Comparison: CT/CA/SR - CT HEAD FOR STROKE - 06/18/24 [...] in OV> 06/18/242047 DD/ 46 TD/TT: 06/18/242046 [employer] Producer: [facility] External Provider IMG MRI PROCEDURES Edited Result - Final * CTA Head Stroke w/ and w/o Contrast (06/18/2024 1:04 PM EDT) Anatomical Region Laterality Modality Computed Tomogra phy 06/18/2024 1:04 PM EDT Narrative 06/18/2024 1:49 PM EDT ? [facility] ?[address] ?[place] [address] ? CT Scan Report ? Signed ? Patient: Puga,Shilpi ?MR#: [id number] ?? 92 ? : 1965 ?Acct:[id number] ? Age/Sex: 58 / F ?ADM Date: 06/18/24 ? Loc: HO.ED ? Attending Dr: ? Ordering Physician: Lacy Saucedo MD ?? Date of Service: 06/18/24 ?? Procedure(s): CT angio head neck STROKE ?? Accession Number(s): [id number] ? cc: Lacy Saucedo MD; Name,Kiel BAILEY ? Report Number: ?? [id number]: Total DLP = ??673.00 mGy-cm ?? EXAMINATION: [...] ?? Superior cerebellar arteries are patent. ? 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 Normal patency. No focal stenosis. No [...] DD/ 1304 ? TD/TT: 06/18/24 1319 ? Morning Show Newscast Producer: ? Procedure Note Donotramakrishnainterpreter, Image - 06/18/[address] [address] [address] Scan Report Signed Patient: Sarita Puga MMR#: [id number] 89 : 1965Acct:[id number] Age/Sex: 58 / FADM Date: 06/18/24 Loc: HO.ED Attending Dr: Ordering Physician: Lacy Saucedo MD Date of Service: 06/18/24 Procedure(s): CT angio head neck STROKE Accession Number(s): [id number] cc: Lacy Saucedo MD; Name,Kiel BAILEY Report Number: [id number]: Total DLP = 673.00 mGy-cm EXAMINATION: CTA [...] intimal flap. Superior cerebellar arteries are patent. 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 No focal stenosis. No abrupt [...] 06/18/24 1346 DD/ 1304 TD/TT: 06/18/24 1319 Morning Show Newscast Producer: [facility] External Provider IMG CT PROCEDURES Final Result * CT Head Stroke w/o Contrast (06/18/2024 12:57 PM EDT) Anatomical Region Laterality Modality Computed Tomogra phy 06/18/2024 12:5 7 PM EDT Narrative 06/18/2024 1:38 PM EDT ? [facility] ?[address] ?[place] [address] ? CT Scan Report ? Signed ? Patient: Puga,Shilpi ?MR#: [id number] ?? 92 ? : 1965 ?Acct:[id number] ? Age/Sex: 58 / F ?ADM Date: 06/18/24 ? Loc: HO.ED ? Attending Dr: ? Ordering Physician: Lacy Saucedo MD ?? Date of Service: 06/18/24 ?? Procedure(s): CT head for STROKE ?? Accession Number(s): [id number] ? cc: Lacy Saucedo MD; Name,Kiel BAILEY ? Report Number: ?? [id number]: Total DLP = ??634.00 mGy-cm ?? EXAMINATION: [...] DD/ 1257 ? TD/TT: 06/18/24 1302 ? Morning Show Newscast Producer: ? Procedure Note Donotuseinterpreter, Image - 06/18/[address] [place] [address] [address] Scan Report Signed Patient: Sarita Puga MMR#: [id number] 92 : 1965Acct:[id number] Age/Sex: 58 / FADM Date: 06/18/24 Loc: HO.ED Attending Dr: Ordering Physician: Lacy Saucedo MD Date of Service: 06/18/24 Procedure(s): CT head for STROKE Accession Number(s): [id number] cc: Lacy Saucedo MD; Name,Kiel BAILEY Report Number: [id number]: Total DLP = 634.00 mGy-cm EXAMINATION: CT [...] 06/18/24 1335 DD/ 1257 TD/TT: 06/18/24 1302 Morning Show New[employer]ast Producer: [facility] External Provider IMG CT PROCEDURES Final Result * (ABNORMAL) Lipid Panel with Reflex to Direct LDL (06/18/2024 8:18 AM EDT) Triglycerides 156(H) <150 mg/dL [facility] Comment:Desirable Triglyceri de: less than 150 mg/dLBorderline High Triglyceride 150-199 mg/dLHigh Triglyceride: 200-499 mg/dLVery High Triglyceride: greater than or equal to 5OO mg/dL Cholesterol 185 <200 mg/dL [facility] Comment:Desirable Cholestero l: less than 200 mg/dLBorderline High Cholesterol: 200-239 mg/dLHigh Cholesterol: greater than 239 mg/dL LDL Cholesterol Calculated 109(H) <100 mg/dL [facility] Comment:Desirable LDL: less than 100 mg/dLNear Optimal/Above Optimal LDL: 110- 129 mg/dLBorderline High LDL: 130-159 mg/dLHigh LDL: 160-189 mg/dLVery High LDL: greater than or equal to 190 mg/dL HDL Cholesterol 45 >40 mg/dL [facility] Comment:Desirable HDL: great er than 40 mg/dL Note: This HDL assay may give artificially low results in patients with liver disease. 06/18/2024 8:18 AM EDT 06/18/2024 11:00 AM EDT us Kiel Shaffer MD LAB BLOOD ORDERABLES Final Resul t Performing Organization Address [facility] de Phone Number [facility] [address] [place] [phone] * Hepatic Function Panel (06/18/2024 8:18 AM EDT) Bilirubin, Total 0.3 0.0 - 1.0 mg/dL [facility] Bilirubin, Direct 0.1 0.0 - 0.5 mg/dL [facility] Aspartate Amino Transferase 22 5 - 31 U/L [facility] Alanine Aminotransferase 31 0 - 31 U/L [facility] Total Protein 6.5 6.5 - 8.0 g/dL [facility] Albumin Level 4.0 3.5 - 5.0 g/dL [facility] Alkaline Phosphatase 72 39 - 117 U/L [facility] 06/18/2024 8:18 AM EDT 06/18/2024 11:00 AM EDT us Kiel Shaffer MD LAB BLOOD ORDERABLES Final Resul t Performing Organization Address [facility] Co de Phone Number [facility] [address] [place] [phone] * Culture, Urine, Routine (06/15/2024 1:51 PM EDT) Urine Urine specimen obtained by clean catch procedure / Unknown 06/15/2024 1:51 PM EDT 06/15/2024 4:02 PM EDT Comment:UACC Narrative [facility] - 06/17/2024 10:56 AM EDT Urine Culture Report Result Urine Culture 50,000 to 100,000 cfu/ml Urine Culture Mixed bacterial princess characteristic of Urine Culture urogenital contamination. Specimen Source: Urine clean catch us Victorino Graves MD LAB MICROBIOLOGY - GENERAL ORDER JONY Final Result [facility] [address] [place] [phone] [phone] * Referral to Physiatry (06/15/2024) us Victorino Graves MD OUTPATIENT REFERRAL ORDERABLES F inal Result * XR Ribs 3 Views Left w/ Chest (04/27/2024 2:28 PM EST) Anatomical Region Laterality Modality Radiographic Diana ging 04/27/2024 2:28 PM EST Narrative 04/27/2024 3:57 PM EST ?[facility] ?[address] ?[place] [address] ?XRay Report ? Signed ? Patient: Sarita Puga ?MR#: [id number] ?? 92 ? : 1965 ?Acct:[id number] ? Age/Sex: 58 / F ?ADM Date: 04/27/24 ? Loc: HO.HHCX ? Attending Dr: Sarita Gonzalez MD ? Ordering Physician: Sarita Baker MD ?? Date of Service: 04/27/24 ?? Procedure(s): XR ribs LT min 3V w CXR1V ?? Accession Number(s): [id number] ? cc: Sarita Baker MD ? EXAMINATION: [...] DD/ 1428 ? TD/TT: 04/27/24 1450 ? Morning Show Newscast Producer: MSM ? Procedure Note Donotyouter, Image - 04/27/[address] [address] XRay Report Signed Patient: Sarita Puga MMR#: [id number] 92 : 1965Acct:[id number] Age/Sex: 58 / FADM Date: 04/27/24 [facility] Dr: Sarita Gonzalez MD Ordering Physician: Sarita Baker MD Date of Service: 04/27/24 Procedure(s): XR ribs LT min 3V w CXR1V Accession Number(s): [id number] cc: Sarita Baker MD EXAMINATION: XR RIBS, [...] 04/27/24 1554 DD/ 1428 TD/TT: 04/27/24 1450 Morning Show Newscast Producer: MSM us Mary Adenike Gonzalez MD IMG XR PROCEDURES Fin al Result * US DOPPLER EXT UPPER VENOUS LEFT (04/18/2024 3:59 PM EST) Anatomical Region Laterality Modality Body Ultrasound 04/18/2024 3:59 PM EST Narrative 04/18/2024 4:00 PM EST ? [facility] ?[address] ?[place] [address] ? Ultrasound Report ? Signed ? Patient: Puga,Sarita Jeronimo ?MR#: [id number] ?? 92 ? : 1965 ?Acct:[id number] ? Age/Sex: 58 / F ?ADM Date: 04/18/24 ? Loc: HO.US ? Attending Dr: Victorino Graves MD ? Ordering Physician: VICTORINO GRAVES MD ?? Date of Service: 04/18/24 ?? Procedure(s): US venous duplex UE LT ?? Accession Number(s): [id number] ? cc: VICTORINO GRAVES MD; Kiel Shaffer [...] DD/ 1559 ? TD/TT: 04/18/24 1559 ? Morning Show Newscast Producer: ? Procedure Note Jung Bañuelos - 04/18/[address] [address] Ultrasound Report Signed Patient: Sarita Puga [facility]#: [id number] 92 : 1965Acct:[id number] Age/Sex: 58 / FADM Date: 04/18/24 Loc: HO.US Attending Dr: Victorino Graves MD Ordering Physician: VICTORINO GRAVES MD Date of Service: 04/18/24 Procedure(s): US venous duplex UE LT Accession Number(s): [id number] cc: VICTORINO GRAVES MD; Name,Kiel BAILEY CLINICAL [...] 04/18/24 1600 DD/ 1559 TD/TT: 04/18/24 1559 Morning Show Newscast Producer: Victorino Graves MD IMG US PROCEDURES Final Result * BI Mammogram Screening Tomosynthesis Bilateral (06/03/2023 8:45 AM EDT) Anatomical Region Laterality Modality Breast Bilateral Mammography 06/03/2023 8:45 AM EDT Narrative 06/30/2023 10:24 PM EDT ? [facility] [place] ? [address] ?[place] [address] ? Mammography Report ? Signed ? Patient: Puga,Shilpi ?MR#: [id number] ?? 92 ? : 1965 ?Acct:[id number] ? Age/Sex: 57 / F ?ADM Date: 04/12/24 ? Loc: HO.MAMMO ? Attending : Kiel Name MD ? Ordering Physician: Name,Kiel MD ?Results: 1Negative ? Date of Service: 06/03/23 ?Follow Up: 1 Year From Orig ?? inal Mammogram ? Procedure(s): MM tomosynthesis screening BI ?? Accession Number(s): [id number] ? cc: Name,Kiel BAILEY ? EXAMINATION: ?? [...] by Nancy Healy MD in OV> ? 05/11/140 ? DD/ 0845 ? TD/TT: ? Morning Show Newscast Producer: ? Procedure Note Sarmad Image - 06/30/2023 [place] [facility] [address] [place], [place] [address] Mammography Report Signed Patient: Sarita Puga MMR#: [id number] 92 : 1965Acct:[id number] Age/Sex: 57 / FADM Date: 06/03/23 Loc: .MAMMO Attending Dr: Kiel Shaffer MD Ordering Physician: Kiel Shaffer MDResults: 1Negative Date of Service: 06/03/23Follow Up: 1 Year From Orig inal Mammogram Procedure(s): MM tomosynthesis screening BI Accession Number(s): [id number] cc: Kiel Shaffer MD EXAMINATION: MM SCREENING [...] in OV> 06/30/23 2220 DD/ 0845 TD/TT: Morning Show Newscast Producer: Kiel Shaffer MD IM BI PROCEDURES Edited Result - Final * Albumin, Random Urine W/Creatinine (05/26/2023 8:27 AM EDT) Creatinine, Urine 185.88 mg/dL [facility] Microalbumin Urine 23.0 mg/L [facility] Microalbum Creatinine Ratio Ur 12.3 <30 ug/mg cr [facility] Comment:Albumin/Creatinine R atio Reference Ranges: Normal: < 30 ug/mg creatinine Microalbuminuria: 30 - 300 ug/mg creatinineClinical Albuminuria: > 300 ug/mg creatinine Urine (Urine, Random) 05/26/2023 8:27 AM EDT 05/26/2023 11:19 AM EDT us Kiel Shaffer MD LAB URINE ORDERABLES Final Resul t [facility] [address] [place] [phone] * Colonoscopy (07/01/2022 4:37 PM EDT) Colonoscopy Normal Normal Narrative [place] Devine - 07/01/2022 4:37 PM EDT Recommended 5 year follow up ([facility]) [facility] Provider HEALTH MAINTENANCE Final Result * Diabetes Eye Exam (05/26/2022) Eye Exam Normal Normal us Kiel Shaffer MD HEALTH MAINTENANCE Final Result from Last 3 Months or Most Recently Relevant to Health Maintenance Insurance [facility] [place] [address] [place] [address] [place] [address]HEALTH C[employer] [address] [place] [id number] [place] [id number] [place] [address] Care Teams Monotype Operator Relationship Specialty Start Date End Date Name, MD Kile [address] [place] [address] PCP - General Family Medicine 07/15/15 Katlyn Rodriguez PharmD [address] [place] [address] Pharmacist Internal Medicine 10/08/22 Marta Ovalle Supervisor Type Disk Quality ControlHospice Home Health Aide 05/25/23
--- OUTSIDE RECORDS SUMMARY | 2024-07-10 14:16 | XMS_ITS | Encounter Summary ---
Author Organization [facility] Address [address] [place] [address] Care Team Providers Care Cattle Manager Name Role Phone Name, Kiel BAILEY Primary Care Provider Unavailabl e Name, Kiel BAILEY Primary Care Provider Unavailabl e Philly Vela DO Primary Care Pro vider Unavailable Name, Kiel BAILEY Primary Care Provider Unavailabl e Encounter Details Date Type Department Care Team Description 08/20/2010 Respiratory Therapist Report Medical Records [address] [place] [phone] Shon Blanca Social History Tobacco Use Types [...] on filedocumented in this encounter Care Teams Cattle Manager Relationship Specialty Start Date End Date Deena, MD Kiel PCP - General 05/26/09 04/27/15 Kiel Shaffer MD PCP - General Internal Medicine 04/28/15 05/05/15 Philly Vela DO PCP - General Internal Medicine 05/06/15 08/27/15 Kiel Shaffer MD PCP - General Internal Medicine 08/28/15 documented as of this encounter
--- OUTSIDE RECORDS SUMMARY | 2024-07-10 14:16 | XMS_ITS | Encounter Summary ---
Author Organization [facility] Address [address] [place] [address] Care Team Providers Care Orthotic And Prosthetic Technician Name Role Phone Name, Kiel BAILEY Primary Care Provider Unavailabl e Name, Kiel BAILEY Primary Care Provider Unavailabl e Philly Vela DO Primary Care Pro vider Unavailable Name, Kiel BAILEY Primary Care Provider Unavailabl e Encounter Details Date Type Department Care Team Description 12/11/2009 Chief Nurse Executive Report Medical Records [address] [place] [address] Gonzalo Valles MD Social History Tobacco Use [...] on filedocumented in this encounter Care Teams Orthotic And Prosthetic Technician Relationship Specialty Start Date End Date Kiel Shaffer MD PCP - General 05/26/09 04/27/15 Kiel Shaffer MD PCP - General Internal Medicine 04/28/15 05/05/15 Philly Vela DO PCP - General Internal Medicine 05/06/15 08/27/15 Kiel Shaffer MD PCP - General Internal Medicine 08/28/15 documented as of this encounter
--- OUTSIDE RECORDS SUMMARY | 2024-07-10 14:16 | XMS_ITS | Encounter Summary ---
Author Organization [employer] Address [address] [place] [address] Care Team Providers Care Projection Camera Operator Name Role Phone Name, Kiel BAILEY Primary Care Provider [phone] Katlyn Rodriguez PharmD Unavailable [phone] Encounter Details Date Type Department Care Team ([facility] st Contact Info) Description 02/20/2024 Telephone [facility] [address] [place], [place] [phone] Name, MD Kiel [address] [place] [address] Social History Tobacco Use Types Packs/Day Years [...] 07/12/2024 9:30 AM EDT Medication Management [address] [address] PuiaReidKatlyn, PharmD [address] [place] [phone] 07/27/2024 10:00 AM EDT Office Visit [address] [address] Name, MD Kiel [address] [place] [phone] 08/20/2024 9:30 AM EDT Clinical Support [address] [address] Opal Steiner, MARINA documented as of this [...] documented as of this encounter Care Teams Projection Camera Operator Relationship Specialty Start Date End Date Name, MD Kiel [address] [place] [address] PCP - General Family Medicine 07/15/15 Katlyn Rodriguez PharmD [address] [place] [address] Pharmacist Internal Medicine 10/08/22 Marta Ovalle Talent Acquisition ConsultantWood Scaler 05/25/23 documented as of this encounter
--- OUTSIDE RECORDS SUMMARY | 2024-07-10 14:16 | XMS_ITS | Encounter Summary ---
Author Organization [facility] Address [address] [place] [address] Care Team Providers Care Assistant Controller Name Role Phone Name, Kiel BAILEY Primary Care Provider Unavailabl e Name, Kiel BAILEY Primary Care Provider Unavailabl e Philly Vela DO Primary Care Pro vider Unavailable Name, Kiel BAILEY Primary Care Provider Unavailabl e Encounter Details Date Type Department Care Team Description 11/23/2009 Hospital Medical Records [address] [place] [address] Valencia Delvalle Social History Tobacco Use Types [...] filedocumented in this encounter Care Teams Assistant Controller Relationship Specialty Start Date End Date Kiel Shaffer MD PCP - General 05/26/09 04/27/15 Kiel Shaffer MD PCP - General Internal Medicine 04/28/15 05/05/15 Philly Vela DO PCP - General Internal Medicine 05/06/15 08/27/15 Kiel Shaffer MD PCP - General Internal Medicine 08/28/15 documented as of this encounter
--- OUTSIDE RECORDS SUMMARY | 2024-07-10 14:16 | XMS_ITS | Encounter Summary ---
Author Organization [facility] Address [address] [place] [address] Care Team Providers Care Esl Instructional Assistant Name Role Phone Name, Kiel BAILEY Primary Care Provider Unavailabl e Name, Kiel BAILEY Primary Care Provider Unavailabl e Philly Vela DO Primary Care Pro vider Unavailable Name, Kiel BAILEY Primary Care Provider Unavailabl e Encounter Details Date Type Department Care Team Description 11/17/2013 Transfer Records Medical Records [address] [place] [address] Abstract, Provider Social History Tobacco Use Types [...] on filedocumented in this encounter Care Teams Esl Instructional Assistant Relationship Specialty Start Date End Date Kiel Shaffer MD PCP - General 05/26/09 04/27/15 Kiel Shaffer MD PCP - General Internal Medicine 04/28/15 05/05/15 Philly Vela DO PCP - General Internal Medicine 05/06/15 08/27/15 Kiel Shaffer MD PCP - General Internal Medicine 08/28/15 documented as of this encounter
--- OUTSIDE RECORDS SUMMARY | 2024-07-10 14:16 | XMS_ITS | Encounter Summary ---
Author Organization [facility] Address [address] [place] [address] Care Team Providers Care Lighting Fixture Installer Name Role Phone Name, Kiel BAILEY Primary Care Provider Unavailabl e Name, Kiel BAILEY Primary Care Provider Unavailabl e Philly Vela DO Primary Care Pro vider Unavailable Name, Kiel BAILEY Primary Care Provider Unavailabl e Encounter Details Date Type Department Care Team Description 12/08/2009 Night Triage Doc Medical Records [address] [place] [address] Abstract, Provider Social History Tobacco Use Types [...] on filedocumented in this encounter Care Teams Lighting Fixture Installer Relationship Specialty Start Date End Date Kiel Shaffer MD PCP - General 05/26/09 04/27/15 Kiel Shaffer MD PCP - General Internal Medicine 04/28/15 05/05/15 Philly Vela DO PCP - General Internal Medicine 05/06/15 08/27/15 Kiel Shaffer MD PCP - General Internal Medicine 08/28/15 documented as of this encounter
--- OUTSIDE RECORDS SUMMARY | 2024-07-10 14:16 | XMS_ITS | Encounter Summary ---
Author Organization [facility] Address [address] [place] [address] Care Team Providers Care Currency Machine Operator Name Role Phone Name, Kiel BAILEY Primary Care Provider Unavailabl e Name, Kiel BAILEY Primary Care Provider Unavailabl e Philly Vela DO Primary Care Pro vider Unavailable Name, Kiel BAILEY Primary Care Provider Unavailabl e Encounter Details Date Type Department Care Team Description 01/04/2011 Housekeeping Room Attendant Report Medical Records [address] [place] [address] Shon Blanca Social History Tobacco Use Types [...] on filedocumented in this encounter Care Teams Currency Machine Operator Relationship Specialty Start Date End Date Deena, MD Kiel PCP - General 05/26/09 04/27/15 Kiel Shaffer MD PCP - General Internal Medicine 04/28/15 05/05/15 Philly Vela DO PCP - General Internal Medicine 05/06/15 08/27/15 Kiel Shaffer MD PCP - General Internal Medicine 08/28/15 documented as of this encounter
--- OUTSIDE RECORDS SUMMARY | 2024-07-10 14:16 | XMS_ITS | Encounter Summary ---
Author Organization [facility] Address [address] [place] [address] Care Team Providers Care Calender Let Off Operator Name Role Phone Name, Kiel BAILEY Primary Care Provider Unavailabl e Name, Kiel BAILEY Primary Care Provider Unavailabl e Philly Vela DO Primary Care Pro vider Unavailable Name, Kiel BAILEY Primary Care Provider Unavailabl e Encounter Details Date Type Department Care Team Description 04/17/2010 Hospital Medical Records [address] [place] [address] Diego Hernandez Social History Tobacco Use Types [...] on filedocumented in this encounter Care Teams Calender Let Off Operator Relationship Specialty Start Date End Date Kiel Shaffer MD PCP - General 05/26/09 04/27/15 Kiel Shaffer MD PCP - General Internal Medicine 04/28/15 05/05/15 Philly Vela DO PCP - General Internal Medicine 05/06/15 08/27/15 Kiel Shaffer MD PCP - General Internal Medicine 08/28/15 documented as of this encounter
--- OUTSIDE RECORDS SUMMARY | 2024-07-10 14:16 | XMS_ITS | Encounter Summary ---
Author Organization [facility] Address [address] [place] [address] Care Team Providers Care Plumber'S Assistant Name Role Phone Name, Kiel BAILEY Primary Care Provider Unavailabl e Name, Kiel BAILEY Primary Care Provider Unavailabl e Philly Vela DO Primary Care Pro vider Unavailable Name, Kiel BAILEY Primary Care Provider Unavailabl e Encounter Details Date Type Department Care Team Description 07/31/2013 Java Security Engineer Report Medical Records [address] [place] [address] Quinotn Luther Social History Tobacco Use Types Packs/Day [...] on filedocumented in this encounter Care Teams Plumber'S Assistant Relationship Specialty Start Date End Date Kiel Shaffer MD PCP - General 05/26/09 04/27/15 Kiel Shaffer MD PCP - General Internal Medicine 04/28/15 05/05/15 Philly Vela DO PCP - General Internal Medicine 05/06/15 08/27/15 Kiel Shaffer MD PCP - General Internal Medicine 08/28/15 documented as of this encounter
--- OUTSIDE RECORDS SUMMARY | 2024-07-10 14:16 | XMS_ITS | Encounter Summary ---
Author Organization [employer] Address [address] [place] [address] [address] [place] [address] Care Team Providers Care Telephone Interviewer Name Role Phone Name, Kiel BAILEY Primary Care Provider Katlyn Rodriguez PharmD Unavailable Encounter Details Date Type Department Care Team ([facility] Contact Info) Description 10/29/2022 Abstract [facility] MEDICINE [address] [place] [address] Name, MD Kiel [address] [place] [phone] Social History Tobacco Use Types Packs/Day Years [...] Encounters Date Type Department Care Team ([facility] Contact Info) Description 07/12/2024 9:30 AM EDT Medication Management [facility] MEDICINE [address] [place] [phone] Katlyn Rodriguez, PharmD [address] [place], [place] [phone] 07/27/2024 10:00 AM EDT Office Visit [address] [address] Kiel Shaffer MD [address] [place] [address] 08/20/2024 9:30 AM EDT Clinical Support [address] [phone] Opal Steiner, RN documented as of this [...] as of this encounter Care Teams Telephone Interviewer Relationship Specialty Start Date End Date [place] [address] PCP - General Family Medicine 07/15/15 PuiaKatlyn, PharmD [address] [place] [address] Pharmacist Internal Medicine 10/08/22 Marta Ovalle [employer] Barrel Assembly CleanerBand Director 05/25/23 documented as of this encounter
--- OUTSIDE RECORDS SUMMARY | 2024-07-10 14:16 | XMS_ITS | Encounter Summary ---
Author Organization [facility] Address [address] [place] [address] Care Team Providers Care Astronaut Mission Specialist Name Role Phone Name, Kiel BAILEY Primary Care Provider Unavailabl e Name, Kiel BAILEY Primary Care Provider Unavailabl e Philly Vela DO Primary Care Pro vider Unavailable Name, Kiel BAILEY Primary Care Provider Unavailabl e Encounter Details Date Type Department Care Team Description 11/12/2009 Controlled Substance Contract with Plan Medical Records [address] [place] [address] Abstract, Provider Social History Tobacco Use Types [...] on filedocumented in this encounter Care Teams Astronaut Mission Specialist Relationship Specialty Start Date End Date Kiel Shaffer MD PCP - General 05/26/09 04/27/15 Kiel Shaffer MD PCP - General Internal Medicine 04/28/15 05/05/15 Philly Vela DO PCP - General Internal Medicine 05/06/15 08/27/15 Kiel Shaffer MD PCP - General Internal Medicine 08/28/15 documented as of this encounter
== END 2024-07-10 13:10 | disposition home or self-care (01) ==
LOC: HO.MRI 13:09
PROVIDERS: PCP Internal Medicine Geriatric Medicine; Visit Provider Psychiatry & Neurology Neurology
DX: G93.9 Disorder of brain, unspecified (principal)
CPT/HCPCS: 70553; A9585

== ENCOUNTER → 2024-07-10 13:25 | Outpatient (BNV) | payer MEDICAID, SELFPAY | PROVIDERS: PCP Internal Medicine Geriatric Medicine; Visit Provider Radiology Diagnostic Radiology | DX: R90.0 Intracranial space-occupying lesion found on diagnostic imaging of central nervous system (principal) | CPT/HCPCS: 70553 ==

== ENCOUNTER 2024-07-13 09:56 | Outpatient (AMB) | payer MEDICAID, SELFPAY ==
--- NOTE | 2024-07-13 10:03 | A.OFFVIS_ITS ---
Vital Signs 07/13/24 10:06 Height 5 ft 3 in Weight 227 lb BMI 40.2 Intake Visit Reasons: OV - Left Upper Extremity EMG Review Intake Note: Sarita is a 58 year old right hand dominant female who presents today for an EMG review of the left hand. History of Left Carpal Tunnel Release 12/01/23. Patient is taking dexamathasone for a brain bleed she says. She expresses she is having numbness and tingling in the forearm. She states she does not have strength in the hand due to things and has been dropping objects. She has complaints of pain and says she feels a ball in her forearm near her elbow. EMG done 06/28/24 IMPRESSION: 1. 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 Postsurgical nerve conduction studies does not return to normal levels immediately despite clinical improvement, but may show slow/gradual return of amplitudes and shortening of latencies. As compared to nerve conduction done prior to surgery 08/2023, there is improvement on the left median sensory amplitude. 3. There is no electrodiagnostic evidence for ulnar neuropathy, brachial plexopathy, or cervical radiculopathy to explain current left elbow pain. Allergies penicillin G [Penicillin G] Allergy (Mild, Verified 07/13/24 10:06) SWELLING barium sulfate [ORAL CONTRAST] Allergy (Unknown, Verified 07/13/24 10:06) HIVES cephalexin Allergy (Unknown, Verified 07/13/24 10:06) Unknown HPI HPI OV - Left Upper Extremity EMG Review: Details: Sarita is a 58 year old right hand dominant female who presents today for an EMG review of the left hand. History of Left Carpal Tunnel Release 12/01/23. Patient is taking dexamathasone for a brain bleed she says. She expresses she is having numbness and tingling in the forearm. She states she does not have strength in the hand due to things and has been dropping objects. She has complaints of pain and says she feels a ball in her forearm near her elbow. EMG done 06/28/24 IMPRESSION: 1. 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 Postsurgical nerve conduction studies does not return to normal levels immediately despite clinical improvement, but may show slow/gradual return of amplitudes and shortening of latencies. As compared to nerve conduction done prior to surgery 08/2023, there is improvement on the left median sensory amplitude. 3. There is no electrodiagnostic evidence for ulnar neuropathy, brachial plexopathy, or cervical radiculopathy to explain current left elbow pain. [facility] Medical History Coronary artery disease Insulin dependent type 2 diabetes mellitus Exposure to rabies Lymphoma Restrictive lung disease secondary to obesity COPD (chronic obstructive pulmonary disease) Nocturnal hypoxemia DRE (obstructive sleep apnea) Cough Nicotine dependence, cigarettes, uncomplicated Allergic rhinitis Morbid obesity Hyperlipidemia GERD (gastroesophageal reflux disease) Tubular adenoma Chronic idiopathic constipation IBS (irritable bowel syndrome) Back pain Depression Surgical History History of total right knee replacement (TKR) History of appendectomy (~1978) History of (~1986) History of hysterectomy (~1995) History of lithotripsy (~2018) History of carpal tunnel surgery of right wrist (~2020) History of colonoscopy History of esophagogastroduodenoscopy (EGD) Family History Mother Diabetes Heart muscle disorder caused by another medical condition Father Diabetes Epilepsy Sister No problems noted. Sister No problems noted. Sister No problems noted. Sister No problems noted. Sister No problems noted. Brother No problems noted. Brother No problems noted. Brother No problems noted. Brother No problems noted. Brother No problems noted. Brother No problems noted. Daughter No problems noted. Daughter No problems noted. Son No problems noted. Son No problems noted. Son No problems noted. Social History Household Members: None Are you a primary career development manager to a significant other at home: No Do you presently have visiting nurse or other home services: No Alcohol intake: current Alcohol intake frequency: a few times a week Patient Tobacco Use Status: Current everyday Tobacco user Tobacco use type: Cigarette Cigarette Packs Per Day: 1.5 Cigarettes Per Day: 30.0 Years Smoked: (onset 13yo, x 42yrs, max 2ppd, now 1/2ppd - 30PYH) Substance Use Type: Marijuana service: No Current occupational status: disabled Current occupation: rt handed Review of Systems Const All systems reviewed & are unremarkable except as noted in HPI and below Physical Exam Vital Signs: BMI result Body Mass Index 40.2 Extrem Other: Neuro: Normal sensation of the tips of all digits of the left hand at this time No thenar or intrinsic wasting. Good APB muscle firing and good finger cross. Vascular: Capillary refill brisk. ROM: With encouragement, Patient can make a fist and extend all their digits. Pain: Patient reports significant pain in the forearm with range of motion of the wrist, no tenderness to palpation anywhere in the left hand hand, wrist, forearm, elbow. Skin: Well approximated and well healing incision site noted on the volar aspect of the left wrist General: No ecchymosis. No erythema or evidence of infection Results Reviewed Results Reviewed: IMPRESSION: 1. 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 Postsurgical nerve conduction studies does not return to normal levels immediately despite clinical improvement, but may show slow/gradual return of amplitudes and shortening of latencies. As compared to nerve conduction done prior to surgery 08/2023, there is improvement on the left median sensory amplitude. 3. There is no electrodiagnostic evidence for ulnar neuropathy, brachial plexopathy, or cervical radiculopathy to explain current left elbow pain. Thank you for your kind referral. Ivett Gibbs MD, ROBEROT Assessment & Plan Assessment & Plan (1) Tendinitis of left wrist: Code(s): M77.8 - Other enthesopathies, not elsewhere classified Category: Medical Plan 1. Tendinitis of the left wrist Patient is educated about this condition Patient is educated about the typical recovery course At this time, patient is referred to occupational therapy for range of motion and strengthening of the left wrist in the setting of tendinitis Patient is amenable to this plan Follow-up as needed Orders: Orders OT Evaluation and Treatment Today M77.8 - Other enthesopathies, not elsewhere classified Coding Level of Care Code Est Pt Level 3 (00337) Diagnoses Tendinitis of left wrist M77.8
[2024-07-13 10:06] VITALS: BMI 40.2
--- OUTSIDE RECORDS SUMMARY | 2024-07-13 10:12 | XMS_ITS | Encounter Summary ---
Author Organization [facility] Address [address] [place] [address] Care Team Providers Care Landscape Crew Member Name Role Phone Name, Kiel BAILEY Primary Care Provider [phone] Encounter Details Date Type Department Care Team (Late st Contact Info) Description 11/24/2023 9:53 AM EDT Hospital Encounter TH HISTORIC ENCOUNTERS EASTERN CONVERSION ONLY Geoffrey-Art Vitale MD [address] [place] [address] Social History Tobacco Use Types [...] 2:17 PM Encounter Date: 11/24/2023 Status: Signed Community Health Program Coordinator: Art Davis MD (Physician) CHIEF COMPLAINT: Chief Complaint Patient presents with ? Follow-up Diffuse large B-cell lymphoma Stage III Completed 6 cycles of R-CHOP in July 23, 2018 IDENTIFIER:Sarita Puga is a 58 y.o. female. HPI: The patient returns for follow up of Large B-cell lymphoma. Here with her daughter , who is niuean to marshallese wire bound box machine operator Patient reports that she has been [...] accompanied by her daughter and girlfriend. As [place] to [employer] wire bound box machine operator assisted with the discussion. She had [...] AM EDT Office Visit Orthopedic Surgery - [place] [address] [id number] Wesley Garcia DPM [address] [address] documented as of this encounter Procedures Procedure [...] documented as of this encounter Care Teams Landscape Crew Member Relationship Specialty Start Date End Date Name, MD [address] [place], [place] PCP - General Internal Medicine 08/28/15 documented as of this encounter
== END 2024-07-13 10:16 | disposition home or self-care (01) ==
LOC: HO.HOS 09:57
DX: M77.8 Other enthesopathies, not elsewhere classified (principal)
CPT/HCPCS: 99213

== ENCOUNTER → 2024-07-13 09:56 | Outpatient (BNVA) | payer MEDICAID, SELFPAY | DX: M77.8 Other enthesopathies, not elsewhere classified (principal) | CPT/HCPCS: 99212 ==

== ENCOUNTER 2024-07-30 09:13 | Outpatient (REF) | payer MEDICAID, SELFPAY ==
--- NOTE | ~2024-07-30 | XR_ITS ---
EXAMINATION: XR CHEST CLINICAL INFORMATION: shortness of breath COMPARISON: 04/27/2024. TECHNIQUE: 2 views of the chest were obtained. FINDINGS: The cardiac, hilar, and mediastinal contours are normal. The lungs are clear bilaterally. There is no pneumothorax or pleural effusion. There is no focal osseous or soft tissue abnormality. XR/XR chest 2V IMPRESSION: No active pulmonary disease. Electronically signed by: Flavio Simms MD 07/30/2024 09:35 AM EDT
--- OUTSIDE RECORDS SUMMARY | 2024-07-30 09:37 | XMS_ITS | Encounter Summary ---
Author Organization [employer] Address [address] [facility] [address] [place] [address] Care Team Providers Care Salad Chef Name Role Phone Name, Kiel BAILEY Primary Care Provider [phone] Katlyn Rodriguez PharmD Unavailable [phone] Encounter Details Date Type Department Care Team ([facility] Contact Info) Description 05/01/2024 Telephone [facility] [address] [place], [place] [id number] Name, MD Kiel [address] [place] [address] Social History Tobacco Use Types Packs/Day Years [...] Care Team (Late st Contact Info) Description 08/16/2024 9:30 AM EDT Medication Management [address] [address] PuiaReidKatlyn, PharmD [address] [place] [id number] 08/20/2024 9:30 AM EDT Clinical Support [address] [address] Opal Steiner RN documented as of this encounter Goals Goal Patient Goal Type Associated Problems Recent Progress Patient-Stated? Author Record your blood pressure once per day Blood Pressure No Puia, Katlyn, PharmD Blood Pressure < 140/90 Blood Pressure 134/83(2024 8:50 AM EDT) No Puia, Katlyn, PharmD Hemoglobin [...] documented as of this encounter Care Teams Salad Chef Relationship Specialty Start Date End Date Name, MD Kiel [address] [place] [address] PCP - General Family Medicine 07/15/15 Katlyn Rodriguez, PharmD [address] [place] [address] Pharmacist Internal Medicine 10/08/22 Marta Ovalle Advertising Sales AgentAnesthesiologist And Critical Care 05/25/23 documented as of this encounter
== END 2024-07-30 09:14 | disposition home or self-care (01) ==
LOC: HO.HHCX 09:13
PROVIDERS: Visit Provider Nurse Practitioner
DX: R06.02 Shortness of breath (principal)
CPT/HCPCS: 71046

== ENCOUNTER → 2024-07-30 09:14 | Outpatient (BNV) | payer MEDICAID, SELFPAY | PROVIDERS: Visit Provider Radiology Diagnostic Radiology | DX: R06.02 Shortness of breath (principal) | CPT/HCPCS: 71046 ==

== ENCOUNTER 2024-07-30 09:39 | Inpatient (IN) | payer MEDICAID, SELFPAY ==
[2024-07-30] VITALS (9 sets, daily range): BP systolic 108–145; BP diastolic 62–85; PULSE 68–82; RESP 16–24; TEMP 36.4–36.6; O2SAT 95–99; BMI 40.2
--- NOTE | ~2024-07-30 | CT_ITS ---
CLINICAL HISTORY: fall CT cervical spine without contrast Comparison: CT/SR - CT CERVICAL SPINE WO IV CON - 04/06/24 17:19 EST Findings: Bony alignment of the cervical vertebral bodies is anatomic. No fracture or prevertebral soft tissue swelling. Minimal to mild degenerative change within the mid to lower cervical spine. IMPRESSION: No acute findings. This document has been electronically signed by: Hema Ng MD on 08/02/2024 07:26:46
--- NOTE | ~2024-07-30 | CT_ITS ---
CLINICAL HISTORY: fall CT head without contrast Comparison: MR/IL/SR - MR HEAD/BRAIN WO/W CON - 07/10/24 13:26 EDT MR - MR HEAD/BRAIN WO/W CON - 06/18/24 19:[address]/IL - CT ANGIO HEAD NECK STROKE - 06/18/24 13:[address]/IL/SR - CT ANGIO HEAD NECK STROKE - 06/18/24 13:[address]/IL/SR - CT HEAD FOR STROKE - 06/18/24 12:57 EDT Findings: An ovoid area of increased density along the right cerebral peduncle measuring 1.6 x 1.3 cm in size with surrounding low attenuation. This extends into the right basal ganglia where there is low attenuation measuring 1.7 x 2.2 cm in size. There is fullness of the right cerebral peduncle as well. Attenuation of the brain parenchyma is otherwise within normal limits. No hydrocephalus. No midline shift. No calvarial lesions. IMPRESSION: 1. Abnormal ovoid hyperdensity along the right cerebellar peduncle with surrounding low attenuation extending into the right basal ganglia. This corresponds to the area of abnormality of the patient's recent MRI study. Please refer to that report for full details. 2. No acute traumatic findings. This document has been electronically signed by: Hema Ng MD on 08/02/2024 07:27:19
--- NOTE | ~2024-07-30 | XR_ITS ---
CLINICAL HISTORY: fall 3 view, pelvis and left hip Comparison: None Findings: The bones are intact. Mild degenerative changes at both hips. The soft tissues are unremarkable. IMPRESSION: Mild degenerative changes. No acute process. This document has been electronically signed by: Miguel Angel Diaz MD on 08/02/2024 07:02:51
--- NOTE | 2024-07-30 09:54 | ECG_ITS ---
Test Reason : sob Blood Pressure : */* mmHG Vent. Rate : 67 BPM Atrial Rate : 67 BPM P-R Int : 130 ms QRS Dur : 96 ms QT Int : 390 ms P-R-T Axes : 19 -10 1 degrees QTcB Int : 412 ms Normal sinus rhythm Incomplete right bundle branch block Moderate voltage criteria for LVH, may be normal variant ( R in aVL , [place] product ) Borderline ECG When compared with ECG of 18-Jun-2024 13:10, No significant change was found Referred By: Generic ED Physician Electronically Signed By: ADONAY STEWART MD
--- NOTE | 2024-07-30 10:05 | ED_ITS ---
HPI - SOB/Dyspnea General Chief Complaint: Dyspnea Stated Complaint: Chest pain, Pneumonia? Time Seen by Provider: 07/30/24 10:04 Source: patient and RN notes reviewed Mode of arrival: ambulatory Limitations: no limitations History of Present Illness ED Provider: Aurora Beltrán PA-C HPI Narrative: This is a 58-year-old female, with a past medical history of COPD, hyperlipidemia, GERD, tubular adenoma, IBS, depression, lymphoma, who presents emergency department from the [facility] with concerns of shortness of breath. Patient reports that over the last several days she has had increased shortness of breath, wheezing, and chest tightness. She reports an occasional dry cough. Patient states that she was seen by the [facility] and was started on a prednisone course as well as azithromycin. She has been taking these medications without any relief. She has been using updrafts at home which has provided her without any relief. Last dose of prednisone was this morning. She reports chest tightness, no chest pain. She denies any fevers, chills, abdominal pain, nausea, vomiting or diarrhea. Denies taking any pain medications at home. No other complaints or concerns at this time. MD elicited complaint: cough Pertinent past history: COPD and asthma Onset (ago): day(s) Timing: constant Severity: moderate Exacerbating factors: nothing Relieving factors: bronchodilators Known history of: COPD, asthma and diabetes Treatment prior to arrival: none Related Data Home oxygen amount: none Home Medications ?Medication ?Instructions ?Recorded ?Confirmed montelukast 10 mg tablet 10 mg PO BEDTIME 02/13/20 07/30/24 (Singulair) paroxetine HCl 40 mg tablet 40 mg PO BEDTIME 12/05/20 07/30/24 pen needle, diabetic 32 gauge x #50 ea 12/05/20 07/04/24 (Pentips Pen Needle) insulin glargine 100 unit/mL (3 36 unit subcut DAILY 05/26/21 07/30/24 mL) subcutaneous pen (Lantus Solostar U-100 Insulin) gabapentin 600 mg tablet 600 mg PO TID PRN Pain 04/21/22 07/30/24 lidocaine 5 % topical patch 1 patch topical DAILY PRN Pain 04/21/22 07/30/24 metoprolol succinate 25 mg 25 mg PO BEDTIME 04/21/22 07/30/24 tablet,extended release 24 hr oxcarbazepine 300 mg tablet 450 mg PO BEDTIME 04/21/22 07/30/24 clonidine HCl 0.1 mg tablet 0.1 mg PO BEDTIME 07/08/22 07/30/24 aspirin 81 mg chewable tablet 1 tab PO BEDTIME 01/05/23 07/30/24 atorvastatin 80 mg tablet 80 mg PO BEDTIME 01/05/23 07/30/24 metformin 500 mg tablet,extended 500 mg PO BEDTIME 01/05/23 07/30/24 release 24 hr acetaminophen 650 mg 650 mg PO Q8H PRN Mild Pain (Scale 06/18/24 07/30/24 tablet,extended release Score 1-4) albuterol sulfate 2.5 mg/3 mL 2.5 mg inhalation Q4H PRN 06/18/24 07/30/24 (0.083 %) solution for nebulization shortness of breath or wheezing albuterol sulfate 90 mcg/actuation 2 puff inhalation Q4H PRN wheezing 06/18/24 07/30/24 aerosol inhaler (Ventolin HFA) baclofen 10 mg tablet 10 mg PO TID PRN muscle spasm 06/18/24 07/30/24 calcium 600 mg (as 1 tab PO BID 06/18/24 07/30/24 carbonate)-vitamin D3 5 mcg (200 unit) tablet cetirizine 10 mg tablet (Zyrtec) 10 mg PO DAILY 06/18/24 07/30/24 ezetimibe 10 mg tablet 10 mg PO DAILY 06/18/24 07/30/24 famotidine 20 mg tablet 20 mg PO BID 06/18/24 07/30/24 furosemide 20 mg tablet 20 mg PO DAILY 06/18/24 07/30/24 icosapent ethyl 1 gram capsule 2 g PO BID 06/18/24 07/30/24 losartan 50 mg tablet 50 mg PO DAILY 06/18/24 07/30/24 meloxicam 7.5 mg tablet 7.5 mg PO DAILY 06/18/24 07/30/24 oxcarbazepine 150 mg tablet 150 mg PO DAILY 06/18/24 07/30/24 tirzepatide 15 mg/0.5 mL 15 mg subcut FR 06/18/24 07/30/24 subcutaneous pen injector (Mounjaro) trazodone 100 mg tablet 100 mg PO BEDTIME PRN insomnia 06/18/24 07/30/24 Previous Rx's ?Medication ?Instructions ?Recorded pyridoxine (vitamin B6) 100 mg 100 mg PO DAILY 90 days #90 tabs 11/30/23 tablet fluticasone propionate 115 2 puff inhalation Q12H ASTHMA/COPD 02/17/24 mcg-salmeterol 21 mcg/actuation 30 days #12 grams HFA inhaler (Advair HFA) oxycodone 10 mg tablet 10 mg PO DAILY PRN headache #30 06/20/24 tabs ipratropium 20 mcg-albuterol 100 1 puff PO Q6H #4 grams 06/22/24 mcg/actuation mist for inhalation (Combivent Respimat) Allergies Allergy/AdvReac Type Severity Reaction Status Date / Time penicillin G [Penicillin G] Allergy Mild SWELLING Verified 07/30/24 09:48 barium sulfate Allergy Unknown HIVES Verified 07/30/24 09:48 [ORAL CONTRAST] cephalexin Allergy Unknown Unknown Verified 07/30/24 09:48 Review of Systems 2 Review of Systems: Yes all other systems are reviewed and are negative Constitutional: Constitutional: Reports as per HPI [facility] Past Medical History Medical History Coronary artery disease Insulin dependent type 2 diabetes mellitus Exposure to rabies Lymphoma Restrictive lung disease secondary to obesity COPD (chronic obstructive pulmonary disease) Nocturnal hypoxemia DRE (obstructive sleep apnea) Cough Nicotine dependence, cigarettes, uncomplicated Allergic rhinitis Morbid obesity Hyperlipidemia GERD (gastroesophageal reflux disease) Tubular adenoma Chronic idiopathic constipation IBS (irritable bowel syndrome) Back pain Depression Surgical History History of total right knee replacement (TKR) History of appendectomy (~1978) History of (~1986) History of hysterectomy (~1995) History of lithotripsy (~2018) History of carpal tunnel surgery of right wrist (~2020) History of colonoscopy History of esophagogastroduodenoscopy (EGD) Family History Family History Mother Diabetes Heart muscle disorder caused by another medical condition Father Diabetes Epilepsy Sister No problems noted. Sister No problems noted. Sister No problems noted. Sister No problems noted. Sister No problems noted. Brother No problems noted. Brother No problems noted. Brother No problems noted. Brother No problems noted. Brother No problems noted. Brother No problems noted. Daughter No problems noted. Daughter No problems noted. Son No problems noted. Son No problems noted. Son No problems noted. Social History Social History Household Members: Other Household Members Other:: grandson Housing: Apartment Are you a primary healthcare sales representative to a significant other at home: No Do you presently have visiting nurse or other home services: No Alcohol intake: current Alcohol intake frequency: a few times a week Patient Tobacco Use Status: Current everyday Tobacco user Tobacco use type: Cigarette Cigarette Packs Per Day: 2 Cigarettes Per Day: 40.0 Years Smoked: (onset 13yo, x 42yrs, max 2ppd, now 1/2ppd - 30PYH) e-Cigarette/Vaping Use: Never Used Second Hand Smoke Exposure: No Substance Use Type: Marijuana service: No Current occupational status: disabled Current occupation: rt handed Physical Exam 2 Vital Signs: Vital Signs: Last Vital Signs Temp 96.8 F 08/02/24 07:11 Pulse 64 08/02/24 08:21 Resp 18 08/02/24 08:16 BP 143/71 H 08/02/24 08:21 Pulse Ox 95 08/02/24 07:11 O2 Del Method Room Air 08/02/24 07:11 O2 Flow Rate 2 08/01/24 03:59 BMI result Body Mass Index 40.2 Const: General: cooperative, comfortable and no acute distress O rientation/consciousness: patient oriented x3 Limitations: no limitations HEENT: Head: Yes normal to inspection, Yes normocephalic and Yes atraumatic Ears: hearing grossly normal bilaterally General nose exam: Normal external nose present Face and sinus: Yes normal facial exam Mouth: Normal oral and palatal mucosa present, oropharynx normal and moist mucous membranes Throat: Yes posterior oropharynx normal Eyes: General: appearance normal, both eyes and all related structures E yelids: Yes eyelids normal Conjunctivae: conjunctivae normal Sclerae: s clerae normal Pupils: Equal, round and reactive pupils present EOM: EOMs intact bilaterally Neck: Neck: Yes normal visual inspection, Yes full ROM and Yes no lymphadenopathy Lymphatic: no lymphadenopathy noted Chest: Chest palpation & inspection: normal inspection of the chest Resp: Other: Tight, coarse inspiratory and expiratory wheezes noted, diminished throughout. Speaking in 4-5 word sentences. Effort & Inspection: normal respiratory effort Cardio: Rate: regular rate Rhythm: regular rhythm Heart sounds: S1 normal heart sound present and S2 normal heart sound present GI: Inspection: Yes normal to inspection Skin: General skin exam: no rashes or lesions noted Trauma: no lacerations or abrasions Wounds: no wounds Neuro: General: patient oriented x3 and moves all extremities Cranial nerves: Yes Equal, round and reactive pupils present Extrem: General: Yes normal to inspection Right upper extremity: normal to inspection Left upper extremity: normal to inspection Right lower extremity: normal to inspection Left lower extremity: normal to inspection Medications Administered Generic Name Dose Route Start Last Admin Trade Name Freq PRN Reason Stop Dose Admin Acetaminophen 975 mg 07/30/24 17:45 07/31/24 14:20 Acetaminophen 325 Mg Tablet PO 975 mg Q6H PRN Administration Pain, Mild 1-3,fever,headache Albuterol/Ipratropium 3 ml 07/30/24 20:00 08/02/24 08:13 Albuterol/Iprat 2.5/0.5mg 3 Ml Ampul.Neb INHALE 3 ml RQ4H WHILE AWAKE CLAUDETTE Administration Aspirin 81 mg 07/30/24 21:00 08/01/24 20:25 Aspirin 81 Mg Tab.Chew PO 81 mg BEDTIME CLAUDETTE Administration Atorvastatin Calcium 80 mg 07/30/24 21:00 08/01/24 20:25 Atorvastatin Calcium 80 Mg Tablet PO 80 mg BEDTIME CLAUDETTE Administration Calcium Carbonate/Cholecalciferol 250 mg 07/30/24 21:00 08/01/24 20:26 Calcium + Vitamin D 250 Mg Tablet PO 250 mg BID CLAUDETTE Administration Enoxaparin Sodium 40 mg 07/30/24 21:00 08/01/24 20:26 Enoxaparin Sodium 40 Mg/0.4 Ml Syringe SUBCUT 40 mg Q24H CLAUDETTE Administration Guaifenesin 10 ml 07/30/24 18:31 08/01/24 00:08 Guaifenesin 200 Mg/10 Ml 10 Ml Liquid PO 10 ml Q6H PRN Administration Cough Guaifenesin 600 mg 07/31/24 09:45 08/01/24 20:26 Guaifenesin La 600 Mg Tab.Er.12h PO 600 mg BID CLAUDETTE Administration Insulin Glargine 36 unit 07/31/24 09:00 08/01/24 08:11 Insulin Glargine,Hum.Rec.Anlog 100 Unit/Ml 10 Ml Vial SUBCUT 36 unit DAILY CLAUDETTE Administration Insulin Human Lispro 0 unit 07/30/24 21:00 08/02/24 07:19 Insulin Lispro 100 Unit/Ml 3 Ml Vial SUBCUT Not Given QIDACHS [facility] Protocol Ketorolac Tromethamine 15 mg 08/01/24 11:15 08/02/24 06:46 Ketorolac Tromethamine 15 Mg/Ml Vial IVPUSH 08/06/24 11:59 Not Given Q6H CLAUDETTE Loratadine 10 mg 07/31/24 09:00 08/01/24 08:11 Loratadine 10 Mg Tablet PO 10 mg DAILY CLAUDETTE Administration Losartan Potassium 50 mg 07/31/24 09:00 07/31/24 08:05 Losartan Potassium 50 Mg Tablet PO 50 mg DAILY CLAUDETTE Administration Protocol Methylprednisolone Sodium Succinate 40 mg 08/01/24 21:00 08/01/24 20:26 Methylprednisolone Sod Succ 40 Mg/Ml Vial IVPUSH 40 mg BID CLAUDETTE Administration Metoprolol Succinate 25 mg 07/31/24 21:00 08/01/24 20:25 Metoprolol Succinate Er 25 Mg Tab.Er.24h PO 25 mg BEDTIME CLAUDETTE Administration Protocol Montelukast Sodium 10 mg 07/30/24 21:00 08/01/24 20:26 Montelukast Sodium 10 Mg Tablet PO 10 mg BEDTIME CLAUDETTE Administration Morphine Sulfate 2 mg 08/01/24 14:15 08/01/24 20:26 Morphine Sulfate 2 Mg/Ml Cartridge IVPUSH 2 mg Q6H PRN Administration Pain, Severe (Pain Scale 7-10) Protocol Oxcarbazepine 150 mg 07/31/24 09:00 08/01/24 08:11 Oxcarbazepine 150 Mg Tablet PO 150 mg DAILY CLAUDETTE Administration Oxcarbazepine 450 mg 07/30/24 21:00 08/01/24 20:25 Oxcarbazepine 150 Mg Tablet PO 450 mg BEDTIME CLAUDETTE Administration Oxycodone HCl 10 mg 07/30/24 20:25 07/31/24 23:07 Oxycodone Hcl Immed Release 5 Mg Tablet PO 10 mg DAILY PRN Administration headache Paroxetine HCl 40 mg 07/30/24 21:00 08/01/24 20:25 Paroxetine Hcl 40 Mg Tablet PO 40 mg BEDTIME CLAUDETTE Administration Pyridoxine HCl 100 mg 07/31/24 09:00 08/01/24 08:11 Pyridoxine Hcl (Vitamin B6) 50 Mg Tablet PO 100 mg DAILY CLAUDETTE Administration Sodium Chloride 3 ml 07/31/24 00:00 08/02/24 07:28 0.9 % Sodium Chloride Flush 3 Ml Syringe IVFLUSH Not Given QSHIFT CLAUDETTE Trazodone HCl 100 mg 07/30/24 20:52 07/30/24 22:43 Trazodone Hcl 100 Mg Tablet PO 100 mg BEDTIME PRN Administration insomnia Discontinued Medications Generic Name Dose Route Start Last Admin Trade Name Freq PRN Reason Stop Dose Admin Bisacodyl 5 mg 07/31/24 20:31 07/31/24 21:03 Bisacodyl 5 Mg Tablet. PO 07/31/24 20:32 5 mg ONCE ONE Administration Albuterol Sulfate 2.5 mg/ 0 mg 07/30/24 11:03 07/30/24 11:13 Albuterol/Ipratropium 3 ml INHALE 07/30/24 11:04 1 dose ONCE ONE Administration Albuterol Sulfate 2.5 mg/ 0 mg 07/30/24 11:29 07/30/24 11:35 Albuterol/Ipratropium 3 ml INHALE 07/30/24 11:30 1 dose ONCE ONE Administration Albuterol Sulfate 5 mg/ 0 mg 07/30/24 15:48 07/30/24 15:52 Albuterol/Ipratropium 3 ml INHALE 07/30/24 15:49 1 each ONCE ONE Administration Magnesium Sulfate 2 gm in 50 mls @ 150 mls/hr 07/30/24 10:49 07/30/24 14:15 Magnesium Sulfate/H2o IV 07/30/24 11:08 Infused ONCE ONE Infusion Acetaminophen 1,000 mg in 100 mls @ 400 mls/hr 07/30/24 10:49 07/30/24 13:55 Ofirmev IV 07/30/24 11:03 Infused ONCE ONE Infusion Magnesium Sulfate 2 gm in 50 mls @ 150 mls/hr 07/30/24 20:24 07/30/24 21:45 Magnesium Sulfate/H2o IV 07/30/24 20:43 Infused ONCE STA Infusion Lactated Ringer's 1,000 mls @ 999 mls/hr 08/02/24 06:15 08/02/24 07:01 Lr IV 08/02/24 07:15 999 mls/hr .Q1H1M CLAUDETTE Administration Methylprednisolone Sodium Succinate 60 mg 07/30/24 10:49 07/30/24 11:06 Methylprednisolone Sod Succ 125 Mg Vial IVPUSH 07/30/24 10:50 60 mg ONCE ONE Administration Methylprednisolone Sodium Succinate 80 mg 07/30/24 20:24 07/30/24 21:16 Methylprednisolone Sod Succ 125 Mg Vial IVPUSH 07/30/24 20:25 80 mg ONCE STA Administration Methylprednisolone Sodium Succinate 40 mg 07/31/24 17:00 07/31/24 18:06 Methylprednisolone Sod Succ 40 Mg/Ml Vial IVPUSH 40 mg Q24H CLAUDETTE Administration Medical Decision Making Medical Decision Making [facility] Narrative: This is a 58-year-old female, with a past medical history of COPD, CVA, DRE, who presents emergency department with concerns of shortness for breath, cough and wheezing for the last several days. She has been followed outpatient was started on azithromycin and prednisone which is not been beneficial for her. Cough is nonproductive. Differential diagnoses include viral URI, reactive airway disease, COVID, flu, Patient's cough has not been productive, is tight, wheezy, this does not appear to be a COPD exacerbation and she is already currently on antibiotics at this time. Patient will be best served getting labs, as well as full respiratory panel. She did have an outpatient x-ray which did not reveal pneumonia today. Course: Pt has had solu-medrol, updrafts and symptoms persist, no improvement of lung sounds. Given lack of symptomatic relief, patient admitted to the hospital for further management. Transfer of care initiated. Differential Diagnosis Differential Diagnoses: The differential diagnosis associated with the presentation includes See above Admission/Observation Consideration of admission/observation: Escalation of care including admission/observation considered Lab Data [facility] Lab Attestation statement: I reviewed the patient's lab results. No leukocytosis, normocytic anemia with an H&H of 11.9/36.5, CHEM WNL. Trop negative, BNP WNL. 07/31/24 06:20 07/31/24 06:20 Labs: Lab Results 07/30/24 07/30/24 07/30/24 Range/Units 10:41 10:44 11:04 WBC 7.1 (4.8-10.8) X10*3/uL RBC 4.21 (4.20-5.50) X10*6/uL Hgb 11.9 L (12.0-16.0) g/dl Hct 36.5 L (37.0-47.0) % MCV 86.7 (80.0-98.0) fL MCH 28.3 (27.0-33.0) pg MCHC 32.6 (31.0-35.0) g/dl RDW 14.4 (11.0-16.0) % Plt Count 157 L (160-400) X10*3/uL MPV 11.8 (9.4-12.3) fL Immature Gran % (Auto) 0.1 (0.0-0.4) % Neut % (Auto) 55.1 (45-73) % Lymph % (Auto) 35.6 (20-40) % [place] % (Auto) 7.6 (2-11) % Eos % (Auto) 1.0 (0-4) % Baso % (Auto) 0.6 (0-2) % Lymph # (Auto) 2.5 (1.2-4.9) X10*3/uL [place] # (Auto) 0.5 (0.1-1.2) X10*3/uL Eos # (Auto) 0.1 (0.0-0.4) X10*3/uL Baso # (Auto) 0.0 (0.0-0.2) X10*3/uL Abs Immat Gran (auto) 0.01 (0.00-0.03) X10*3/uL Absolute Neuts (auto) 3.9 (2.0-8.3) x10*3/uL Absolute Nucleated RBC 0.000 (0.0-0.012) X10*3/uL Nucleated RBC % (auto) 0.0 (0.0-0.2) /100WBC Sodium 140 (135-145) mmol/L Potassium 3.3 (3.3-5.1) mmol/L Chloride 106 (96-108) mmol/L Carbon Dioxide 30 H (22-29) mmol/L Anion Gap 7 L (12-20) BUN 18 H (9-16) mg/dL Creatinine 0.52 (0.5-1.4) mg/dL Estim Creat Clear Calc 135.2 Estimated GFR > 60 POC Glucose 152 H (60-115) mg/dL Random Glucose 153 H (60-115) mg/dL Calcium 8.8 (8.4-10.2) mg/dL Magnesium 1.8 (1.6-2.6) mg/dL Total Bilirubin 0.5 (0.0-1.0) mg/dL AST 17 (5-31) U/L ALT 24 (0-31) U/L Alkaline Phosphatase 58 (39-117) U/L Troponin I High Sens < 2.7 (<3.5-17.0) ng/L B-Natriuretic Peptide 98 (<100) pg/mL Total Protein 6.1 L (6.5-8.0) g/dL Albumin 3.8 (3.5-5.0) g/dL Respiratory Panel Bee See Note Adenovirus (Rapid PCR) Not Detected (Not Detect.) B.pert (TEM-PCR) Not Detected (Not Detect.) B.parapertussis DNA PCR Not Detected (Not Detect.) C. pneumoniae DNA (PCR) Not Detected (Not Detect.) Coronavirus OC43 (PCR) Not Detected (Not Detect.) Coronavirus HKU1 (PCR) Not Detected (Not Detect.) Coronavirus 229E (PCR) Not Detected (Not Detect.) Coronavirus NL63 (PCR) Not Detected (Not Detect.) Human Metapneumovir PCR Not Detected (Not Detect.) Influenza A (RT-PCR) Not Detected (Not Detect.) Influenza A (H1) PCR Not Detected (Not Detect.) Influ A (H1/09) PCR Not Detected (Not Detect.) Influenza A (H3) PCR Not Detected (Not Detect.) Influenza Type A (PCR) NEGATIVE (Negative) Influenza B (RT-PCR) Not Detected (Not Detect.) Influenza Type B (PCR) NEGATIVE (Negative) M. pneumoniae (PCR) Not Detected (Not Detect.) Parainfluenza 1 (PCR) Not Detected (Not Detect.) Parainfluenza 2 (PCR) Not Detected (Not Detect.) Parainfluenza 3 (PCR) Not Detected (Not Detect.) Parainfluenza 4 (PCR) Not Detected (Not Detect.) RSV (PCR) Not Detected (Not Detect.) RSV RNA Qual (PCR) NEGATIVE (Negative) Entero/Rhino (PCR) Detected A (Not Detect.) SARS-CoV-2 RNA (RT-PCR) NEGATIVE Not Detected (Negative) Radiology Impression Discussion of test interpretation with radiology: I have reviewed the radiologist's reading. External Record Review External record reviewed: Inpatient record, Office record, Outpatient record, Prior outpatient labs, Prior outpatient radiology, Primary care record and Outside ED record Critical Care Time Critical Care Time Critical Care Time: Yes Total Critical Care Time: 31 Attestation: I have personally provided critical care time exclusive of time spent on separately billable procedures. Time includes review of lab data, radiology results, discussion with consultants, and monitoring for potential decompensation. Intervention performed as documented. Discharge Plan Discharge Clinical Impression: Rhinovirus, Reactive airway disease Patient Disposition: Admitted As Inpatient Interventions: Admission Worksheet (ED) Last Done: 07/30/24 20:27 Discharge Date/Time: 07/30/24 21:45
--- NOTE | 2024-07-30 10:33 | PC.NURSE ---
Pt from triage to ED 7, c/o increased shortness of breath and coming from [facility]. Per family, CXR was obtained prior to coming to ED and currently being treated with abx. A/O x 3, family at bedside. Pt with increased respiratory effort. Productive cough noted and expiratory wheezes audible. Maintaining O2 sats in 90's on room air. Pt reports pain with inspiration. Collection of labs pending and plan of care ongoing.
[2024-07-30 10:49] LABS: Glucose, Whole Blood 152 mg/dL (60-115)
[2024-07-30 10:50] LABS: MANUAL DIFF FLAG NO
[2024-07-30 10:51] LABS: Basophils Percent Auto 0.6 % (0-2); Eosinophils Absolute Auto 0.1 X10*3/uL (0.0-0.4); Hematocrit 36.5 % (37.0-47.0); Hemoglobin 11.9 g/dl (12.0-16.0); Imm Gran Abs Auto 0.01 X10*3/uL (0.00-0.03); Imm Gran Pct Auto 0.1 % (0.0-0.4); Lymphocytes Absolute Auto 2.5 X10*3/uL (1.2-4.9); Lymphocytes Percent Auto 35.6 % (20-40); Mean Corpuscular HGB Conc 32.6 g/dl (31.0-35.0); Mean Corpuscular Hemoglobin 28.3 pg (27.0-33.0); Mean Corpuscular Volume 86.7 fL (80.0-98.0); Mean Platelet Volume 11.8 fL (9.4-12.3); Monocytes Absolute Auto 0.5 X10*3/uL (0.1-1.2); Monocytes Percent Auto 7.6 % (2-11); Neutrophils Absolute Auto 3.9 x10*3/uL (2.0-8.3); Neutrophils Percent Auto 55.1 % (45-73); Platelet Count 157 X10*3/uL (160-400); Red Blood Count 4.21 X10*6/uL (4.20-5.50); Red Cell Distribution Width 14.4 % (11.0-16.0); White Blood Count 7.1 X10*3/uL (4.8-10.8)
[2024-07-30 11:09] LABS: Alanine Aminotransferase 24 U/L (0-31); Albumin Level 3.8 g/dL (3.5-5.0); Alkaline Phosphatase 58 U/L (39-117); Anion Gap 7 (12-20); Aspartate Amino Transferase 17 U/L (5-31); Bilirubin Total 0.5 mg/dL (0.0-1.0); Blood Urea Nitrogen 18 mg/dL (9-16); Calcium 8.8 mg/dL (8.4-10.2); Carbon Dioxide 30 mmol/L (22-29); Chloride 106 mmol/L (96-108); Creatinine Clr Calc Pharmacy 135.2; Estimated Glomerular Filt Rate > 60; Glucose Random 153 mg/dL (60-115); Magnesium 1.8 mg/dL (1.6-2.6); Potassium 3.3 mmol/L (3.3-5.1); Sodium 140 mmol/L (135-145); Total Protein 6.1 g/dL (6.5-8.0)
[2024-07-30] MEDS: Albuterol Sulfate 2.5 MG, Albuterol/Iprat 2.5/0.5MG 3 ML 3 ML INHALE ×2 (11:13→11:35)
[2024-07-30 11:21] LABS: B Type Natriuretic Peptide 98 pg/mL (<100)
[2024-07-30 11:22] LABS: Troponin-I High Sensitivity < 2.7 ng/L (<3.5-17.0)
[2024-07-30 11:32] LABS: Influenza A PCR NEGATIVE (Negative); Influenza B PCR NEGATIVE (Negative); Resp Syncy Virus RNA Qual PCR NEGATIVE (Negative); SARS COV2 PCR INHOUSE NEGATIVE (Negative)
[2024-07-30 12:28] LABS: Adenovirus PCR Not Detected (Not Detect.); Bordetella parapertussis PCR Not Detected (Not Detect.); Bordetella pertussis PCR Not Detected (Not Detect.); Chlamydia pneumoniae PCR Not Detected (Not Detect.); Coronavirus 229E PCR Not Detected (Not Detect.); Coronavirus HKU1 PCR Not Detected (Not Detect.); Coronavirus NL63 PCR Not Detected (Not Detect.); Coronavirus OC43 PCR Not Detected (Not Detect.); Human metapneumovirus PCR Not Detected (Not Detect.); Influenza A PCR Not Detected (Not Detect.); Influenza B PCR Not Detected (Not Detect.); Mycoplasma pneumoniae PCR Not Detected (Not Detect.); Parainfluenza 1 PCR Not Detected (Not Detect.); Parainfluenza 2 PCR Not Detected (Not Detect.); Parainfluenza 3 PCR Not Detected (Not Detect.); Parainfluenza 4 PCR Not Detected (Not Detect.); RSV PCR Not Detected (Not Detect.); Rhino/Enterovirus PCR Detected (Not Detect.)
[2024-07-30 12:33] LABS: Influenza A H1 PCR Not Detected (Not Detect.); Influenza A H1-2009 PCR Not Detected (Not Detect.); Influenza A H3 PCR Not Detected (Not Detect.); SARS-CoV-2 PCR Not Detected (Not Detect.)
--- NOTE | 2024-07-30 12:36 | PC.NURSE ---
Pt difficult stick, attempts by RNs and Trent PA and unable. Aurora SEGURA aware, will ask Dr Mar to assist.
[2024-07-30] MEDS: Magnesium Sulfate/H2O 2 GM/50 ML PIGGYBACK IV ×2 (12:51→21:20)
[2024-07-30] MEDS: Acetaminophen 1,000 MG/100 ML PIGGYBACK 400 MG IV (13:17)
--- NOTE | 2024-07-30 14:40 | PC.NURSE ---
Pt resting comfortably in bed with no apparent s/s of distress. Respirations even and unlabored, no expiratory wheezing audible. Medications administered per APR. Plan of care ongoing
[2024-07-30] MEDS: Albuterol Sulfate 5 MG, Albuterol/Iprat 2.5/0.5MG 3 ML 3 ML INHALE (15:52)
--- NOTE | 2024-07-30 17:04 | PC.NURSE ---
Per provider request pt ambulated in hallway with pulse ox monitoring. Pt ambulated approx 10 ft and reports not feeling well began coughing and expiratory wheezes audible. Provider notified of results.
[2024-07-30] MEDS: Albuterol/Iprat 2.5/0.5MG 3 ML AMPUL.NEB INHALE (19:35)
--- NOTE | 2024-07-30 19:48 | PHA.MEDREC ---
Pharmacy Consult ? Medication Reconciliation Pharmacy has completed the medication reconciliation. Spoke to patient with help from science interpreter services, she was able to name her meds with prompting. Didn't recognize ezetimibe or the ipratropium-albuterol inhalation but they were filled regularly, will confirm with claims
--- NOTE | 2024-07-30 20:28 | P.HPHOSP_ITS ---
History of Present Illness Date of Service: 07/30/24 Attending physician on admission: Servando Alexander Chief Complaint: Shortness of breaths Sarita Puga is a 58 years old woman with past medical history significant for COPD (nocturnal O2), restrictive lung disease ongoing tobacco smoker, type 2 diabetes mellitus, obstructive sleep apnea on nocturnal oxygen, lymphoma and obesity presents to the emergency department complaining of worsening shortness of breath over the last few days associated with chest tightness and productive cough of clear sputum. She denies fever or chills. She also denied palpitations, headache, dizziness, abdominal pain, nausea, vomiting and diarrhea. She did not report any acute urinary symptoms. She denied alcohol abuse or illicit drug abuse. She has an ongoing tobacco smoker. Recently received a course of prednisone. In the ED, she was found to have normal vital signs except for mild degree of tachypnea. She is currently not requiring supplemental oxygen. Blood workup showed no leukocytosis. Hemoglobin is 11.9 and platelets 157. There are no significant electrolyte imbalances. Bicarb is 30. BUN is 18 and creatinine 0.52. Last glucose 152. LFTs are normal. Troponin and BNP are normal. Viral testing for RSV is positive. Influenza and COVID-19 are negative. ECG showed NSR, IRRR and LVH changes without ischemic changes. CXR is negative. ED tx: Solu-Medrol 60 mg IV, magnesium 2 g IV, Tylenol 1 g IV, multiple nebs. Review of Systems 2 Review of Systems: All 12 systems were reviewed and normal except as noted in HPI. [facility] Medical History Coronary artery disease Insulin dependent type 2 diabetes mellitus Exposure to rabies Lymphoma Restrictive lung disease secondary to obesity COPD (chronic obstructive pulmonary disease) Nocturnal hypoxemia DRE (obstructive sleep apnea) Cough Nicotine dependence, cigarettes, uncomplicated Allergic rhinitis Morbid obesity Hyperlipidemia GERD (gastroesophageal reflux disease) Tubular adenoma Chronic idiopathic constipation IBS (irritable bowel syndrome) Back pain Depression Family History Mother Diabetes Heart muscle disorder caused by another medical condition Father Diabetes Epilepsy Sister No problems noted. Sister No problems noted. Sister No problems noted. Sister No problems noted. Sister No problems noted. Brother No problems noted. Brother No problems noted. Brother No problems noted. Brother No problems noted. Brother No problems noted. Brother No problems noted. Daughter No problems noted. Daughter No problems noted. Son No problems noted. Son No problems noted. Son No problems noted. Surgical History History of total right knee replacement (TKR) History of appendectomy (~1978) History of (~1986) History of hysterectomy (~1995) History of lithotripsy (~2018) History of carpal tunnel surgery of right wrist (~2020) History of colonoscopy History of esophagogastroduodenoscopy (EGD) Social History Household Members: None Are you a primary home care nurse to a significant other at home: No Do you presently have visiting nurse or other home services: No Alcohol intake: current Alcohol intake frequency: a few times a week Patient Tobacco Use Status: Current everyday Tobacco user Tobacco use type: Cigarette Cigarette Packs Per Day: 1.5 Cigarettes Per Day: 30.0 Years Smoked: (onset 13yo, x 42yrs, max 2ppd, now 1/2ppd - 30PYH) Smoked in Last 30 Days: Yes Use of substances other than those prescribed or required for medical reasons: No Substance Use Type: Marijuana Advance Directives: No Advance Directives Information Provided: Yes service: No Current occupational status: disabled Current occupation: rt handed Meds Allergies Allergy/AdvReac Type Severity Reaction Status Date / Time penicillin G [Penicillin G] Allergy Mild SWELLING Verified 07/30/24 09:48 barium sulfate Allergy Unknown HIVES Verified 07/30/24 09:48 [ORAL CONTRAST] cephalexin Allergy Unknown Unknown Verified 07/30/24 09:48 Active Medications: Current Medications Acetaminophen (Acetaminophen 325 Mg Tablet) 975 mg PO Q6H PRN PRN Reason: Pain, Mild 1-3,fever,headache Albuterol Sulfate (Albuterol Sulfate (0.083%) 2.5 Mg/3 Ml Vial.Neb) 2.5 mg INHALE Q2H PRN PRN Reason: Shortness of Breath/Wheezing Albuterol/Ipratropium (Albuterol/Iprat 2.5/0.5mg 3 Ml Ampul.Neb) 3 ml INHALE RQ4H WHILE AWAKE [facility] Last Admin: 07/30/24 19:35 Dose: 3 ml Aspirin (Aspirin 81 Mg Tab.Chew) 81 mg PO BEDTIME [facility] Atorvastatin Calcium (Atorvastatin Calcium 80 Mg Tablet) 80 mg PO BEDTIME [facility] Baclofen (Baclofen 10 Mg Tablet) 10 mg PO TID PRN PRN Reason: muscle spasm Dextrose (Dextrose 50 % 25 Gm/50 Ml Syringe) 25 gm IVPUSH Q15M PRN; Protocol PRN Reason: per Hypoglycemia Standing Ord. Glucose (Glucose Gel 15 Gm Gel..Gram.) 15 gm PO Q15M PRN; Protocol PRN Reason: per Hypoglycemia Standing Ord. Guaifenesin (Guaifenesin 200 Mg/10 Ml 10 Ml Liquid) 10 ml PO Q6H PRN PRN Reason: Cough Magnesium Sulfate (Magnesium Sulfate/H2o) 2 gm in 50 mls @ 150 mls/hr IV ONCE STA Stop: 07/30/24 20:43 Insulin Glargine (Insulin Glargine,Hum.Rec.Anlog 100 Unit/Ml 10 Ml Vial) 36 unit SUBCUT DAILY [facility] Insulin Human Lispro (Insulin Lispro 100 Unit/Ml 3 Ml Vial) 0 unit SUBCUT QIDACHS [facility]; Protocol Loratadine (Loratadine 10 Mg Tablet) 10 mg PO DAILY [facility] Melatonin (Melatonin 3 Mg Tablet) 6 mg PO BEDTIME PRN PRN Reason: Insomnia Non-Formulary Medication (Calcium Carbonate-Vitamin D3) 1 tab PO BID [facility] Oxycodone HCl (Oxycodone Hcl Immed Release 5 Mg Tablet) 10 mg PO DAILY PRN PRN Reason: headache Sodium Chloride (0.9 % Sodium Chloride Flush 3 Ml Syringe) 3 ml IVFLUSH QSHIFT [facility] Home Medications ?Medication ?Instructions ?Recorded ?Confirmed ?Last Taken ?Type montelukast 10 mg tablet 10 mg PO BEDTIME 02/13/20 07/30/24 07/30/24 History (Singulair) paroxetine HCl 40 mg tablet 40 mg PO BEDTIME 12/05/20 07/30/24 07/30/24 History pen needle, diabetic 32 gauge x #50 ea 12/05/20 07/04/24 Unknown History (Pentips Pen Needle) insulin glargine 100 unit/mL (3 36 unit subcut DAILY 05/26/21 07/30/24 07/30/24 History mL) subcutaneous pen (Lantus Solostar U-100 Insulin) gabapentin 600 mg tablet 600 mg PO TID PRN Pain 04/21/22 07/30/24 07/30/24 History lidocaine 5 % topical patch 1 patch topical DAILY PRN Pain 04/21/22 07/30/24 07/30/24 History metoprolol succinate 25 mg 25 mg PO BEDTIME 04/21/22 07/30/24 07/30/24 History tablet,extended release 24 hr oxcarbazepine 300 mg tablet 450 mg PO BEDTIME 04/21/22 07/30/24 07/30/24 History clonidine HCl 0.1 mg tablet 0.1 mg PO BEDTIME 07/08/22 07/30/24 07/30/24 History aspirin 81 mg chewable tablet 1 tab PO BEDTIME 01/05/23 07/30/24 07/30/24 History atorvastatin 80 mg tablet 80 mg PO BEDTIME 01/05/23 07/30/24 07/30/24 History metformin 500 mg tablet,extended 500 mg PO BEDTIME 01/05/23 07/30/24 07/30/24 History release 24 hr acetaminophen 650 mg 650 mg PO Q8H PRN Mild Pain (Scale 06/18/24 07/30/24 07/30/24 History tablet,extended release Score 1-4) albuterol sulfate 2.5 mg/3 mL 2.5 mg inhalation Q4H PRN 06/18/24 07/30/24 07/30/24 History (0.083 %) solution for nebulization shortness of breath or wheezing albuterol sulfate 90 mcg/actuation 2 puff inhalation Q4H PRN wheezing 06/18/24 07/30/24 07/30/24 History aerosol inhaler (Ventolin HFA) baclofen 10 mg tablet 10 mg PO TID PRN muscle spasm 06/18/24 07/30/24 07/30/24 History calcium 600 mg (as 1 tab PO BID 06/18/24 07/30/24 07/30/24 History carbonate)-vitamin D3 5 mcg (200 unit) tablet cetirizine 10 mg tablet (Zyrtec) 10 mg PO DAILY 06/18/24 07/30/24 07/30/24 History ezetimibe 10 mg tablet 10 mg PO DAILY 06/18/24 07/30/24 07/30/24 History famotidine 20 mg tablet 20 mg PO BID 06/18/24 07/30/24 07/30/24 History furosemide 20 mg tablet 20 mg PO DAILY 06/18/24 07/30/24 07/30/24 History icosapent ethyl 1 gram capsule 2 g PO BID 06/18/24 07/30/24 07/30/24 History losartan 50 mg tablet 50 mg PO DAILY 06/18/24 07/30/24 07/30/24 History meloxicam 7.5 mg tablet 7.5 mg PO DAILY 06/18/24 07/30/24 07/30/24 History oxcarbazepine 150 mg tablet 150 mg PO DAILY 06/18/24 07/30/24 07/30/24 History tirzepatide 15 mg/0.5 mL 15 mg subcut FR 06/18/24 07/30/24 07/27/24 History subcutaneous pen injector (Lurdes) trazodone 100 mg tablet 100 mg PO BEDTIME PRN insomnia 06/18/24 07/30/24 07/30/24 History Physical Exam 2 Vital Signs and Narrative: Vital Signs: Last Vital Signs Temp 97.9 F 07/30/24 19:18 Pulse 69 07/30/24 19:38 Resp 18 07/30/24 19:38 BP 126/62 07/30/24 19:18 Pulse Ox 99 07/30/24 19:18 O2 Del Method Room Air 07/30/24 19:18 BMI result Body Mass Index 40.2 Constitutional - Awake and Alert, marked respiratory distress. Obese. Constantly coughing. Speaking in complete sentences. HEENT - PER, EOMI Heart - RRR, No murmurs. Lungs - Normal lung expansion, Normal respiratory effort, No respiratory distress. Tachypneic. Bilateral end expiratory wheezes. No crackles. Abdomen - NT / ND; +BS; No rebound or guarding Extremities - no calf tenderness bilaterally, no swelling Musculoskeletal - Normal inspection, normal ROM Skin - Warm/Dry Neurological - Alert & oriented x3. No focal weakness grossly noted. Normal speech. Psychological - Appropriate affect Results Labs 07/30/24 10:41 07/30/24 10:41 Labs: Laboratory Results - last 24 hr 07/30/24 07/30/24 07/30/24 10:41 10:44 11:04 MCV 86.7 MCH 28.3 MCHC 32.6 RDW 14.4 Plt Count 157 L MPV 11.8 Immature Gran % (Auto) 0.1 Neut % (Auto) 55.1 Lymph % (Auto) 35.6 [place] % (Auto) 7.6 Eos % (Auto) 1.0 Baso % (Auto) 0.6 Lymph # (Auto) 2.5 [place] # (Auto) 0.5 Eos # (Auto) 0.1 Baso # (Auto) 0.0 Abs Immat Gran (auto) 0.01 Absolute Neuts (auto) 3.9 Absolute Nucleated RBC 0.000 Nucleated RBC % (auto) 0.0 Anion Gap 7 L Estim Creat Clear Calc 135.2 Estimated GFR > 60 POC Glucose 152 H Random Glucose 153 H Calcium 8.8 Magnesium 1.8 Total Bilirubin 0.5 AST 17 ALT 24 Alkaline Phosphatase 58 Troponin I High Sens < 2.7 B-Natriuretic Peptide 98 Total Protein 6.1 L Albumin 3.8 Respiratory Panel Bee See Note Adenovirus (Rapid PCR) Not Detected B.pert (TEM-PCR) Not Detected B.parapertussis DNA PCR Not Detected C. pneumoniae DNA (PCR) Not Detected Coronavirus OC43 (PCR) Not Detected Coronavirus HKU1 (PCR) Not Detected Coronavirus 229E (PCR) Not Detected Coronavirus NL63 (PCR) Not Detected Human Metapneumovir PCR Not Detected Influenza A (RT-PCR) Not Detected Influenza A (H1) PCR Not Detected Influ A (H1/09) PCR Not Detected Influenza A (H3) PCR Not Detected Influenza Type A (PCR) NEGATIVE Influenza B (RT-PCR) Not Detected Influenza Type B (PCR) NEGATIVE M. pneumoniae (PCR) Not Detected Parainfluenza 1 (PCR) Not Detected Parainfluenza 2 (PCR) Not Detected Parainfluenza 3 (PCR) Not Detected Parainfluenza 4 (PCR) Not Detected RSV (PCR) Not Detected RSV RNA Qual (PCR) NEGATIVE Entero/Rhino (PCR) Detected A SARS-CoV-2 RNA (RT-PCR) NEGATIVE Not Detected Assessment and Plan (1) Acute exacerbation of COPD with asthma: Status: Acute (2) Rhinovirus: Status: Acute Plan Sarita Puga is a 58 y/o woman admitted with: * Acute exacerbation of chronic obstructive pulmonary disease due to rhinovirus and ongoing tobacco smoking in the setting of underlying obstructive sleep apnea/restrictive lung disease/obesity. Admit to hospitalist service. Droplet precautions. Telemetry. Pulse oximetry. Supplemental O2 to keep oxygen sats above > 90%. Continue bronchodilator therapy and IV steroids. Continue montelukast. * Type 2 diabetes mellitus. BG checks before meals at bedtime. Diabetic diet. Insulin sliding scale and Lantus. * Hyperlipidemia. Continue statin. * Hx of CVA. Continue statin and aspirin. * Mood disorder. Continue Trileptal and paroxetine. * Essential hypertension. Continue metoprolol and losartan. DVT prophylaxis: Lovenox Code status: Full Patient will need hospitalization for at least 2 midnights for acute on chronic reactive pulmonary disease exacerbation treatment with bronchodilator therapy, IV steroids supplemental oxygen as needed. Quality Stroke Does the patient have a stroke diagnosis?: No VTE Prior VTE?: No VTE Risk Level:: Medical - moderate - high VTE Device Contraindication: Treatment Not Indicated VTE Drug Contraindication: N/A - Med Ordered
[2024-07-30 22:38] LABS: Glucose, Whole Blood 159 mg/dL (60-115)
[2024-07-30] MEDS: Enoxaparin Sodium 40 MG/0.4 ML SYRINGE SUBCUT (22:40)
[2024-07-30] MEDS: OXcarbazepine 150 MG TABLET 450 MG PO (22:41)
[2024-07-30] MEDS: Insulin Lispro 100 UNIT/ML 3 ML VIAL SUBCUT (22:41)
[2024-07-30] MEDS: guaiFENesin 200 MG/10 ML 10 ML LIQUID PO (22:41)
[2024-07-30] MEDS: Calcium + Vitamin D 250 MG TABLET PO (22:42)
[2024-07-30] MEDS: Montelukast Sodium 10 MG TABLET PO (22:42)
[2024-07-30] MEDS: Atorvastatin Calcium 80 MG TABLET PO (22:42)
[2024-07-30] MEDS: PARoxetine HCL 40 MG TABLET PO (22:42)
[2024-07-30] MEDS: traZODone HCL 100 MG TABLET PO (22:43)
[2024-07-30] MEDS: Aspirin 81 MG TAB.CHEW PO (22:43)
[2024-07-31] VITALS (11 sets, daily range): BP systolic 84–139; BP diastolic 53–85; PULSE 66–106; RESP 16–18; TEMP 36.1–37; O2SAT 93–99
--- NOTE | 2024-07-31 03:28 | PC.NURSE ---
Pt arrived from the ED to 371 at 2144 per stretcher, alert and oriented, upon arrival pt was already crying for pain on the IV site on the right upper arm, area was noted slightly hard and swollen and painful when flushing, Iv removed with cannula intact, pt also claimed frequent falling at home, with [employer] assist night and day, with cane use as baseline , pt noted slightly ataxic when ambulating and SOB on exertion, c/o chest pain with cough,tolerating RA, LS dim with scattered wheezing, meds given, new IV inserted on the right hand and tolerated, SR in tele,slept fairly after.
[2024-07-31] MEDS: guaiFENesin 200 MG/10 ML 10 ML LIQUID PO ×2 (05:01→14:21)
[2024-07-31 06:40] LABS: MANUAL DIFF FLAG NO
[2024-07-31 06:45] LABS: Basophils Percent Auto 0.3 % (0-2); Hematocrit 38.3 % (37.0-47.0); Hemoglobin 12.2 g/dl (12.0-16.0); Imm Gran Abs Auto 0.02 X10*3/uL (0.00-0.03); Imm Gran Pct Auto 0.3 % (0.0-0.4); Lymphocytes Absolute Auto 0.7 X10*3/uL (1.2-4.9); Lymphocytes Percent Auto 12.1 % (20-40); Mean Corpuscular HGB Conc 31.9 g/dl (31.0-35.0); Mean Corpuscular Hemoglobin 27.5 pg (27.0-33.0); Mean Corpuscular Volume 86.5 fL (80.0-98.0); Mean Platelet Volume 12.3 fL (9.4-12.3); Monocytes Absolute Auto 0.1 X10*3/uL (0.1-1.2); Monocytes Percent Auto 1.2 % (2-11); Neutrophils Absolute Auto 5.1 x10*3/uL (2.0-8.3); Neutrophils Percent Auto 86.1 % (45-73); Platelet Count 174 X10*3/uL (160-400); Red Blood Count 4.43 X10*6/uL (4.20-5.50); Red Cell Distribution Width 14.1 % (11.0-16.0)
[2024-07-31 07:10] LABS: Anion Gap 12 (12-20); Blood Urea Nitrogen 14 mg/dL (9-16); Calcium 9.6 mg/dL (8.4-10.2); Carbon Dioxide 27 mmol/L (22-29); Chloride 103 mmol/L (96-108); Creatinine Clr Calc Pharmacy 130.1; Estimated Glomerular Filt Rate > 60; Glucose Random 217 mg/dL (60-115); Potassium 4.4 mmol/L (3.3-5.1); Sodium 138 mmol/L (135-145)
[2024-07-31 07:17] LABS: Glucose, Whole Blood 207 mg/dL (60-115)
[2024-07-31] MEDS: Albuterol/Iprat 2.5/0.5MG 3 ML AMPUL.NEB INHALE ×4 (07:52→20:25)
[2024-07-31] MEDS: Insulin Glargine,Hum.rec.anlog 100 UNIT/ML 10 ML VIAL 36 UNIT SUBCUT (08:04)
[2024-07-31] MEDS: Insulin Lispro 100 UNIT/ML 3 ML VIAL SUBCUT ×3 (08:04→21:15)
[2024-07-31] MEDS: Losartan Potassium 50 MG TABLET PO (08:05)
[2024-07-31] MEDS: Calcium + Vitamin D 250 MG TABLET PO ×2 (08:05→21:13)
[2024-07-31] MEDS: Loratadine 10 MG TABLET PO (08:05)
[2024-07-31] MEDS: Pyridoxine HCl (Vitamin B6) 50 MG TABLET 100 MG PO (08:05)
[2024-07-31] MEDS: Acetaminophen 325 MG TABLET 975 MG PO ×2 (08:07→14:20)
[2024-07-31] MEDS: 0.9 % Sodium Chloride Flush 3 ML SYRINGE IVFLUSH ×3 (08:09→21:16)
[2024-07-31] MEDS: OXcarbazepine 150 MG TABLET PO (08:20)
--- NOTE | 2024-07-31 09:36 | P.PNIM_ITS ---
Subjective Subjective Date of Service: 07/31/24 Review of Systems Follow up COPD exacerbation Still with shortness of breath and dry cough Physical Exam 2 Vital Signs: Vital Signs: Last Vital Signs Temp 97.0 F 07/31/24 07:47 Pulse 80 07/31/24 07:59 Resp 18 07/31/24 07:59 BP 139/78 07/31/24 07:47 Pulse Ox 93 07/31/24 07:47 O2 Del Method Room Air 07/31/24 07:47 O2 Flow Rate 2 07/31/24 00:00 BMI result Body Mass Index 40.2 Appearing in no acute distress lung sounds expiratory wheezes heart regular rate rhythm, clear S1, S2 positive bowel sounds, abdomen is soft, nontender neuro patient is alert x3, no focal deficits Objective Data Active Medications Acetaminophen (Acetaminophen 325 Mg Tablet) 975 mg PO Q6H PRN PRN Reason: Pain, Mild 1-3,fever,headache Last Admin: 07/31/24 08:07 Dose: 975 mg Documented By: NATALIE Albuterol Sulfate (Albuterol Sulfate (0.083%) 2.5 Mg/3 Ml Vial.Neb) 2.5 mg INHALE Q2H PRN PRN Reason: Shortness of Breath/Wheezing Albuterol/Ipratropium (Albuterol/Iprat 2.5/0.5mg 3 Ml Ampul.Neb) 3 ml INHALE RQ4H WHILE AWAKE [facility] Last Admin: 07/31/24 07:52 Dose: 3 ml Documented By: HERB Aspirin (Aspirin 81 Mg Tab.Chew) 81 mg PO BEDTIME [facility] Last Admin: 07/30/24 22:43 Dose: 81 mg Documented By: RITIKA Comments: given late pt was still in ed Atorvastatin Calcium (Atorvastatin Calcium 80 Mg Tablet) 80 mg PO BEDTIME [facility] Last Admin: 07/30/24 22:42 Dose: 80 mg Documented By: RITIKA Comments: given late pt was still in ED Baclofen (Baclofen 10 Mg Tablet) 10 mg PO TID PRN PRN Reason: muscle spasm Calcium Carbonate/Cholecalciferol (Calcium + Vitamin D 250 Mg Tablet) 250 mg PO BID [facility] Last Admin: 07/31/24 08:05 Dose: 250 mg Documented By: NATALIE Dextrose (Dextrose 50 % 25 Gm/50 Ml Syringe) 25 gm IVPUSH Q15M PRN; Protocol PRN Reason: per Hypoglycemia Standing Ord. Enoxaparin Sodium (Enoxaparin Sodium 40 Mg/0.4 Ml Syringe) 40 mg SUBCUT Q24H [facility] Last Admin: 07/30/24 22:40 Dose: 40 mg Documented By: RITIKA Comments: given late pt was still in ED Glucose (Glucose Gel 15 Gm Gel..Gram.) 15 gm PO Q15M PRN; Protocol PRN Reason: per Hypoglycemia Standing Ord. Guaifenesin (Guaifenesin 200 Mg/10 Ml 10 Ml Liquid) 10 ml PO Q6H PRN PRN Reason: Cough Last Admin: 07/31/24 05:01 Dose: 10 ml Documented By: RITIKA Insulin Glargine (Insulin Glargine,Hum.Rec.Anlog 100 Unit/Ml 10 Ml Vial) 36 unit SUBCUT DAILY [facility] Last Admin: 07/31/24 08:04 Dose: 36 unit Documented By: NATALIE Insulin Human Lispro (Insulin Lispro 100 Unit/Ml 3 Ml Vial) 0 unit SUBCUT QIDACHS [facility]; Protocol Last Admin: 07/31/24 08:04 Dose: 4 unit Documented By: NATALIE Loratadine (Loratadine 10 Mg Tablet) 10 mg PO DAILY [facility] Last Admin: 07/31/24 08:05 Dose: 10 mg Documented By: NATALIE Losartan Potassium (Losartan Potassium 50 Mg Tablet) 50 mg PO DAILY [facility]; Protocol Last Admin: 07/31/24 08:05 Dose: 50 mg Documented By: NATALIE Melatonin (Melatonin 3 Mg Tablet) 6 mg PO BEDTIME PRN PRN Reason: Insomnia Metoprolol Succinate (Metoprolol Succinate Er 25 Mg Tab.Er.24h) 25 mg PO BEDTIME [facility]; Protocol Montelukast Sodium (Montelukast Sodium 10 Mg Tablet) 10 mg PO BEDTIME [facility] Last Admin: 07/30/24 22:42 Dose: 10 mg Documented By: RITIKA Comments: given late pt was still i n ED Oxcarbazepine (Oxcarbazepine 150 Mg Tablet) 150 mg PO DAILY [facility] Last Admin: 07/31/24 08:20 Dose: 150 mg Documented By: NATALIE Oxcarbazepine (Oxcarbazepine 150 Mg Tablet) 450 mg PO BEDTIME [facility] Last Admin: 07/30/24 22:41 Dose: 450 mg Documented By: RITIKA Comments: given late pt was still in ED Oxycodone HCl (Oxycodone Hcl Immed Release 5 Mg Tablet) 10 mg PO DAILY PRN PRN Reason: headache Paroxetine HCl (Paroxetine Hcl 40 Mg Tablet) 40 mg PO BEDTIME [facility] Last Admin: 07/30/24 22:42 Dose: 40 mg Documented By: RITIKA Comments: given late pt was srtill in ED Pyridoxine HCl (Pyridoxine Hcl (Vitamin B6) 50 Mg Tablet) 100 mg PO DAILY [facility] Last Admin: 07/31/24 08:05 Dose: 100 mg Documented By: NATALIE Sodium Chloride (0.9 % Sodium Chloride Flush 3 Ml Syringe) 3 ml IVFLUSH QSHIFT [facility] Last Admin: 07/31/24 08:09 Dose: 3 ml Documented By: BROMadison Trazodone HCl (Trazodone Hcl 100 Mg Tablet) 100 mg PO BEDTIME PRN PRN Reason: insomnia Last Admin: 07/30/24 22:43 Dose: 100 mg Documented By: RITIKA Labs 07/31/24 06:20 07/31/24 06:20 Labs: Laboratory Results - last 24 hr 07/30/24 07/30/24 07/30/24 10:41 10:44 11:04 MCV 86.7 MCH 28.3 MCHC 32.6 RDW 14.4 Plt Count 157 L MPV 11.8 Immature Gran % (Auto) 0.1 Neut % (Auto) 55.1 Lymph % (Auto) 35.6 [place] % (Auto) 7.6 Eos % (Auto) 1.0 Baso % (Auto) 0.6 Lymph # (Auto) 2.5 [place] # (Auto) 0.5 Eos # (Auto) 0.1 Baso # (Auto) 0.0 Abs Immat Gran (auto) 0.01 Absolute Neuts (auto) 3.9 Absolute Nucleated RBC 0.000 Nucleated RBC % (auto) 0.0 Anion Gap 7 L Estim Creat Clear Calc 135.2 Estimated GFR > 60 POC Glucose 152 H Random Glucose 153 H Calcium 8.8 Magnesium 1.8 Total Bilirubin 0.5 AST 17 ALT 24 Alkaline Phosphatase 58 Troponin I High Sens < 2.7 B-Natriuretic Peptide 98 Total Protein 6.1 L Albumin 3.8 Respiratory Panel Bee See Note Adenovirus (Rapid PCR) Not Detected B.pert (TEM-PCR) Not Detected B.parapertussis DNA PCR Not Detected C. pneumoniae DNA (PCR) Not Detected Coronavirus OC43 (PCR) Not Detected Coronavirus HKU1 (PCR) Not Detected Coronavirus 229E (PCR) Not Detected Coronavirus NL63 (PCR) Not Detected Human Metapneumovir PCR Not Detected Influenza A (RT-PCR) Not Detected Influenza A (H1) PCR Not Detected Influ A (H1/09) PCR Not Detected Influenza A (H3) PCR Not Detected Influenza Type A (PCR) NEGATIVE Influenza B (RT-PCR) Not Detected Influenza Type B (PCR) NEGATIVE M. pneumoniae (PCR) Not Detected Parainfluenza 1 (PCR) Not Detected Parainfluenza 2 (PCR) Not Detected Parainfluenza 3 (PCR) Not Detected Parainfluenza 4 (PCR) Not Detected RSV (PCR) Not Detected RSV RNA Qual (PCR) NEGATIVE Entero/Rhino (PCR) Detected A SARS-CoV-2 RNA (RT-PCR) NEGATIVE Not Detected 07/30/24 07/31/24 07/31/24 22:34 06:20 07:07 MCV 86.5 MCH 27.5 MCHC 31.9 RDW 14.1 Plt Count 174 MPV 12.3 Immature Gran % (Auto) 0.3 Neut % (Auto) 86.1 H Lymph % (Auto) 12.1 L [place] % (Auto) 1.2 L Eos % (Auto) 0.0 Baso % (Auto) 0.3 Lymph # (Auto) 0.7 L [place] # (Auto) 0.1 Eos # (Auto) 0.0 Baso # (Auto) 0.0 Abs Immat Gran (auto) 0.02 Absolute Neuts (auto) 5.1 Absolute Nucleated RBC 0.000 Nucleated RBC % (auto) 0.0 Anion Gap 12 Estim Creat Clear Calc 130.1 Estimated GFR > 60 POC Glucose 159 H 207 H Random Glucose 217 H Calcium 9.6 D Magnesium Total Bilirubin AST ALT Alkaline Phosphatase Troponin I High Sens B-Natriuretic Peptide Total Protein Albumin Respiratory Panel Bee Adenovirus (Rapid PCR) B.pert (TEM-PCR) B.parapertussis DNA PCR C. pneumoniae DNA (PCR) Coronavirus OC43 (PCR) Coronavirus HKU1 (PCR) Coronavirus 229E (PCR) Coronavirus NL63 (PCR) Human Metapneumovir PCR Influenza A (RT-PCR) Influenza A (H1) PCR Influ A (H1/09) PCR Influenza A (H3) PCR Influenza Type A (PCR) Influenza B (RT-PCR) Influenza Type B (PCR) M. pneumoniae (PCR) Parainfluenza 1 (PCR) Parainfluenza 2 (PCR) Parainfluenza 3 (PCR) Parainfluenza 4 (PCR) RSV (PCR) RSV RNA Qual (PCR) Entero/Rhino (PCR) SARS-CoV-2 RNA (RT-PCR) Assessment and Plan (1) COPD (chronic obstructive pulmonary disease): Status: Acute Plan 58-year-old woman treated for acute COPD exacerbation Acute on chronic COPD exacerbation History of tobacco use IV Solu-Medrol Scheduled DuoNebs Continue supplemental oxygen to keep oxygen saturation greater than 90% Type 2 diabetes mellitus Sliding scale, ADA diet Lantus Hyperlipidemia Continue statin History of CVA Continue aspirin and statin Mental health. Continue Trileptal and paroxetine Hypertension Continue metoprolol and losartan Tobacco use NRT as requested Morbid obesity. BMI 40.2 Discussed importance of weight management as this may be contributing to worsening of other comorbidities DVT prophylaxis with Lovenox Full code Quality Stroke Does the patient have a stroke diagnosis?: No VTE Prior VTE?: No VTE Risk Level:: Medical - moderate - high VTE Device Contraindication: Treatment Not Indicated VTE Drug Contraindication: N/A - Med Ordered
--- NOTE | 2024-07-31 10:20 | MHC.CM.PN ---
Pt. lives with her grand son, PCP is Dr. Shaffer, HCP is on file and confirmed, names, Sarita and Sandhya. Pt. has [employer] services 14 hrs at night and 32 during the day, through [facility]. For DME, she has a w/c and walker. She can arrange transport home at [place]. DCP: home, resume [employer] services. CM to follow for DC needs.
[2024-07-31 11:28] LABS: Glucose, Whole Blood 221 mg/dL (60-115)
[2024-07-31] MEDS: guaiFENesin LA 600 MG TAB.ER.12H PO ×2 (12:07→21:03)
[2024-07-31 15:33] LABS: Glucose, Whole Blood 135 mg/dL (60-115)
[2024-07-31] MEDS: methylPREDNISolone Sod Succ 40 MG/ML VIAL IVPUSH (18:06)
[2024-07-31 20:35] LABS: Glucose, Whole Blood 269 mg/dL (60-115)
[2024-07-31] MEDS: Metoprolol Succinate ER 25 MG TAB.ER.24H PO (21:03)
[2024-07-31] MEDS: bisacodyL 5 MG TABLET.DR PO (21:03)
[2024-07-31] MEDS: PARoxetine HCL 40 MG TABLET PO (21:03)
[2024-07-31] MEDS: Aspirin 81 MG TAB.CHEW PO (21:03)
[2024-07-31] MEDS: Enoxaparin Sodium 40 MG/0.4 ML SYRINGE SUBCUT (21:13)
[2024-07-31] MEDS: OXcarbazepine 150 MG TABLET 450 MG PO (21:13)
[2024-07-31] MEDS: Montelukast Sodium 10 MG TABLET PO (21:13)
[2024-07-31] MEDS: Atorvastatin Calcium 80 MG TABLET PO (21:15)
[2024-07-31] MEDS: oxyCODONE HCl Immed Release 5 MG TABLET 10 MG PO (23:07)
[2024-08-01] VITALS (10 sets, daily range): BP systolic 125–169; BP diastolic 71–90; PULSE 64–87; RESP 16–22; TEMP 36.2–37; O2SAT 93–98
[2024-08-01] MEDS: guaiFENesin 200 MG/10 ML 10 ML LIQUID PO (00:08)
[2024-08-01] MEDS: Albuterol/Iprat 2.5/0.5MG 3 ML AMPUL.NEB INHALE ×3 (07:39→15:12)
[2024-08-01 07:41] LABS: Glucose, Whole Blood 114 mg/dL (60-115)
[2024-08-01] MEDS: Insulin Glargine,Hum.rec.anlog 100 UNIT/ML 10 ML VIAL 36 UNIT SUBCUT (08:11)
[2024-08-01] MEDS: OXcarbazepine 150 MG TABLET PO (08:11)
[2024-08-01] MEDS: guaiFENesin LA 600 MG TAB.ER.12H PO ×2 (08:11→20:26)
[2024-08-01] MEDS: Pyridoxine HCl (Vitamin B6) 50 MG TABLET 100 MG PO (08:11)
[2024-08-01] MEDS: Loratadine 10 MG TABLET PO (08:11)
[2024-08-01] MEDS: Calcium + Vitamin D 250 MG TABLET PO ×2 (08:11→20:26)
[2024-08-01] MEDS: 0.9 % Sodium Chloride Flush 3 ML SYRINGE IVFLUSH ×2 (08:12→20:31)
--- NOTE | 2024-08-01 10:57 | HO.PM.IMPN ---
Subjective Subjective Date of Service: 08/01/24 Review of Systems Follow up COPD exacerbation Still with shortness of breath, dry cough and wheezing Physical Exam Vital Signs: Vital Signs: Last Vital Signs Temp 97.2 F 08/01/24 07:35 Pulse 87 08/01/24 07:39 Resp 17 08/01/24 07:39 BP 126/74 08/01/24 07:35 Pulse Ox 98 08/01/24 07:35 O2 Del Method Room Air 08/01/24 07:35 O2 Flow Rate 2 08/01/24 03:59 BMI result Body Mass Index 40.2 Appearing in no acute distress lung sounds exp wheezing heart regular rate rhythm, clear S1, S2 positive bowel sounds, abdomen is soft, nontender neuro patient is alert x3, no focal deficits Objective Data Active Medications Acetaminophen (Acetaminophen 325 Mg Tablet) 975 mg PO Q6H PRN PRN Reason: Pain, Mild 1-3,fever,headache Last Admin: 07/31/24 14:20 Dose: 975 mg Documented By: NATALIE Albuterol Sulfate (Albuterol Sulfate (0.083%) 2.5 Mg/3 Ml Vial.Neb) 2.5 mg INHALE Q2H PRN PRN Reason: Shortness of Breath/Wheezing Albuterol/Ipratropium (Albuterol/Iprat 2.5/0.5mg 3 Ml Ampul.Neb) 3 ml INHALE RQ4H WHILE AWAKE [facility] Last Admin: 08/01/24 07:39 Dose: 3 ml Documented By: ABHISHEK Aspirin (Aspirin 81 Mg Tab.Chew) 81 mg PO BEDTIME [facility] Last Admin: 07/31/24 21:03 Dose: 81 mg Documented By: HAWK Atorvastatin Calcium (Atorvastatin Calcium 80 Mg Tablet) 80 mg PO BEDTIME [facility] Last Admin: 07/31/24 21:15 Dose: 80 mg Documented By: HAWK Baclofen (Baclofen 10 Mg Tablet) 10 mg PO TID PRN PRN Reason: muscle spasm Calcium Carbonate/Cholecalciferol (Calcium + Vitamin D 250 Mg Tablet) 250 mg PO BID [facility] Last Admin: 08/01/24 08:11 Dose: 250 mg Documented By: GARCIAAM Dextrose (Dextrose 50 % 25 Gm/50 Ml Syringe) 25 gm IVPUSH Q15M PRN; Protocol PRN Reason: per Hypoglycemia Standing Ord. Enoxaparin Sodium (Enoxaparin Sodium 40 Mg/0.4 Ml Syringe) 40 mg SUBCUT Q24H CLAUDETTE Last Admin: 07/31/24 21:13 Dose: 40 mg Documented By: HAWK Glucose (Glucose Gel 15 Gm Gel..Gram.) 15 gm PO Q15M PRN; Protocol PRN Reason: per Hypoglycemia Standing Ord. Guaifenesin (Guaifenesin 200 Mg/10 Ml 10 Ml Liquid) 10 ml PO Q6H PRN PRN Reason: Cough Last Admin: 08/01/24 00:08 Dose: 10 ml Documented By: HAWK Guaifenesin (Guaifenesin La 600 Mg Tab.Er.12h) 600 mg PO BID [facility] Last Admin: 08/01/24 08:11 Dose: 600 mg Documented By: SUNDEEP Insulin Glargine (Insulin Glargine,Hum.Rec.Anlog 100 Unit/Ml 10 Ml Vial) 36 unit SUBCUT DAILY [facility] Last Admin: 08/01/24 08:11 Dose: 36 unit Documented By: SUNDEEP Insulin Human Lispro (Insulin Lispro 100 Unit/Ml 3 Ml Vial) 0 unit SUBCUT QIDACHS [facility]; Protocol Last Admin: 08/01/24 08:13 Dose: Not Given Documented By: SUNDEEP Non-Admin Reason: No Insulin Coverage Loratadine (Loratadine 10 Mg Tablet) 10 mg PO DAILY [facility] Last Admin: 08/01/24 08:11 Dose: 10 mg Documented By: SUNDEEP Losartan Potassium (Losartan Potassium 50 Mg Tablet) 50 mg PO DAILY [facility]; Protocol Last Admin: 07/31/24 08:05 Dose: 50 mg Documented By: NATALIE Melatonin (Melatonin 3 Mg Tablet) 6 mg PO BEDTIME PRN PRN Reason: Insomnia Methylprednisolone Sodium Succinate (Methylprednisolone Sod Succ 40 Mg/Ml Vial) 40 mg IVPUSH Q24H [facility] Last Admin: 07/31/24 18:06 Dose: 40 mg Documented By: NATALIE Metoprolol Succinate (Metoprolol Succinate Er 25 Mg Tab.Er.24h) 25 mg PO BEDTIME CLAUDETTE; Protocol Last Admin: 07/31/24 21:03 Dose: 25 mg Documented By: HAWK Montelukast Sodium (Montelukast Sodium 10 Mg Tablet) 10 mg PO BEDTIME [facility] Last Admin: 07/31/24 21:13 Dose: 10 mg Documented By: HAWK Oxcarbazepine (Oxcarbazepine 150 Mg Tablet) 150 mg PO DAILY [facility] Last Admin: 08/01/24 08:11 Dose: 150 mg Documented By: SUNDEEP Oxcarbazepine (Oxcarbazepine 150 Mg Tablet) 450 mg PO BEDTIME [facility] Last Admin: 07/31/24 21:13 Dose: 450 mg Documented By: HAWK Oxycodone HCl (Oxycodone Hcl Immed Release 5 Mg Tablet) 10 mg PO DAILY PRN PRN Reason: headache Last Admin: 07/31/24 23:07 Dose: 10 mg Documented By: HAWK Paroxetine HCl (Paroxetine Hcl 40 Mg Tablet) 40 mg PO BEDTIME [facility] Last Admin: 07/31/24 21:03 Dose: 40 mg Documented By: HAWK Pyridoxine HCl (Pyridoxine Hcl (Vitamin B6) 50 Mg Tablet) 100 mg PO DAILY [facility] Last Admin: 08/01/24 08:11 Dose: 100 mg Documented By: SUNDEEP Sodium Chloride (0.9 % Sodium Chloride Flush 3 Ml Syringe) 3 ml IVFLUSH QSHIFT [facility] Last Admin: 08/01/24 08:12 Dose: 3 ml Documented By: SUNDEEP Trazodone HCl (Trazodone Hcl 100 Mg Tablet) 100 mg PO BEDTIME PRN PRN Reason: insomnia Last Admin: 07/30/24 22:43 Dose: 100 mg Documented By: RITIKA Labs 07/31/24 06:20 07/31/24 06:20 Labs: Laboratory Results - last 24 hr 07/31/24 07/31/24 07/31/24 11:22 15:28 20:27 POC Glucose 221 H 135 H 269 H 08/01/24 07:34 POC Glucose 114 Assessment and Plan (1) COPD (chronic obstructive pulmonary disease): Status: Acute Plan 58-year-old woman treated for acute COPD exacerbation Acute on chronic COPD exacerbation History of tobacco use IV Solu-Medrol Scheduled DuoNebs Continue supplemental oxygen to keep oxygen saturation greater than 90% Type 2 diabetes mellitus Sliding scale, ADA diet Lantus Hyperlipidemia Continue statin History of CVA Continue aspirin and statin Mental health. Continue Trileptal and paroxetine Hypertension Continue metoprolol and losartan Tobacco use NRT as requested Morbid obesity. BMI 40.2 Discussed importance of weight management as this may be contributing to worsening of other comorbidities DVT prophylaxis with Lovenox Full code DISPO home when medically clear Quality Stroke Does the patient have a stroke diagnosis?: No VTE Prior VTE?: No VTE Risk Level:: Medical - moderate - high VTE Device Contraindication: Treatment Not Indicated VTE Drug Contraindication: N/A - Med Ordered
[2024-08-01 11:47] LABS: Glucose, Whole Blood 103 mg/dL (60-115)
--- NOTE | 2024-08-01 14:20 | PM.DS ---
DS: Providers Provider Date of Service: 08/02/24 <COLTON Reyes - Last Filed: 08/02/24 15:41> Date of admission: 07/30/24 17:45 <Nikki Ovalle NP - Last Filed: 08/01/24 14:22> Date of discharge: 08/02/24 <COLTON Reyes - Last Filed: 08/02/24 15:41> Primary care physician: Kiel Shaffer MD <Nikki Ovalle NP - Last Filed: 08/01/24 14:22> Attending physician on discharge: Josr Telles <COLTON Reyes - Last Filed: 08/02/24 15:41> Discharging clinician: Alexandra Landaverde <COLTON Reyes - Last Filed: 08/02/24 15:41> DS: Diagnosis Discharge Diagnosis (1) COPD (chronic obstructive pulmonary disease): Status: Acute <iNkki Ovalle NP - Last Filed: 08/01/24 14:22> DS: Summary Hospital Course Hospital Course: History and physical as per admitting provider. Sarita Puga is a 58 years old woman with past medical history significant for COPD (nocturnal O2), restrictive lung disease ongoing tobacco smoker, type 2 diabetes mellitus, obstructive sleep apnea on nocturnal oxygen, lymphoma and obesity presents to the emergency department complaining of worsening shortness of breath over the last few days associated with chest tightness and productive cough of clear sputum. She denies fever or chills. She also denied palpitations, headache, dizziness, abdominal pain, nausea, vomiting and diarrhea. She did not report any acute urinary symptoms. She denied alcohol abuse or illicit drug abuse. She has an ongoing tobacco smoker. Recently received a course of prednisone. In the ED, she was found to have normal vital signs except for mild degree of tachypnea. She is currently not requiring supplemental oxygen. Blood workup showed no leukocytosis. Hemoglobin is 11.9 and platelets 157. There are no significant electrolyte imbalances. Bicarb is 30. BUN is 18 and creatinine 0.52. Last glucose 152. LFTs are normal. Troponin and BNP are normal. Viral testing for RSV is positive. Influenza and COVID-19 are negative. ECG showed NSR, IRRR and LVH changes without ischemic changes. CXR is negative. ED tx: Solu-Medrol 60 mg IV, magnesium 2 g IV, Tylenol 1 g IV, multiple nebs. 58-year-old woman treated for acute on chronic COPD exacerbation with history of tobacco use. Treated with IV steroids and scheduled DuoNebs as well as supplemental oxygen. She tested positive for entero/rhinovirus, likely cause of exacerbation. Plan will be to discharge to complete a course of oral prednisone and patient can continue her updraft inhalers as needed at home. Dizziness. Patient had a fall on morning of August 02. She reported dizziness prior to fall. Orthostatic blood pressures were obtained and were negative. Patient has had multiple falls at home and frequent dizziness. She had previous admission in May during which time she was also dizzy and having falls, at that time a brain MRI showed an abnormality concerning for possible mass. She was discharged home with oral steroids. A repeat MRI was done on July 10 which showed significant improvement in the lesion making malignancy less likely, at that time her steroids were discontinued. After fall brain CT was obtained which redemonstrated the ovoid hyperdensity. She was seen by Neurology on this admission who recommended no further imaging and that hemiparesis would likely be persistent. Patient reports left-sided hemiparesis ongoing at least 2 weeks, but history somewhat vague. Also has a history of neuropathy/carpal tunnel in the left upper extremity with previous surgery and positive EMG studies. EMG done 06/28/24: IMPRESSION: 1. 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 Postsurgical nerve conduction studies does not return to normal levels immediately despite clinical improvement, but may show slow/gradual return of amplitudes and shortening of latencies. As compared to nerve conduction done prior to surgery 08/2023, there is improvement on the left median sensory amplitude. 3. There is no electrodiagnostic evidence for ulnar neuropathy, brachial plexopathy, or cervical radiculopathy to explain current left elbow pain. Seen by PT/OT-recommended short-term rehab. Patient adamantly declined short-term rehab, this was discussed in detail with her and her daughter at the bedside. She is requesting to be discharged home today, does not want to stay for any further monitoring, understands and accepts the risk of her unsteady gait/falls. Although orthostatic blood pressures were negative orthostatic precautions were discussed and the patient understands. She declined PT to evaluate her for positional vertigo, perhaps this can be done as an outpatient. She did agree to home PT/OT/VNA. Her daughter will be staying with her upon discharge. Is recommended for her to call and schedule a follow-up appointment with her PCP - on numerous medications, possible medication related as well. Tobacco use. Treated with nicotine replacement therapy inpatient. Educated on importance of tobacco cessation Morbid obesity. BMI 40.2. Discussed importance of weight management as this may be contributing to worsening of other comorbidities <Nikki Ovalle NP - Last Filed: 08/01/24 14:22> Time Attestation Discharge Coordination Time (in mins): 35 <COLTON Reyes - Last Filed: 08/02/24 15:41> Quality: Safe Use of Opioids Does Pt have an Active Cancer Diagnosis on the Problem List?: No <COLTON Reyes Last Filed: 08/02/24 15:41> Quality: Stroke Does the patient have a stroke diagnosis?: No <COLTON Reyes - Last Filed: 08/02/24 15:41> Physical Exam Vital Signs: Vital Signs: Last Vital Signs Temp 97.4 F 08/01/24 11:43 Pulse 66 08/01/24 11:43 Resp 18 08/01/24 11:43 BP 125/90 H 08/01/24 11:43 Pulse Ox 96 08/01/24 11:43 O2 Del Method Room Air 08/01/24 11:43 O2 Flow Rate 2 08/01/24 03:59 BMI result Body Mass Index 40.2 <Nikki Ovalle NP - Last Filed: 08/01/24 14:22> <Nikki Ovalle NP - Last Filed: 08/01/24 14:22> Const: General: comfortable, no acute distress, alert and awake <COLTON Reyes Last Filed: 08/02/24 15:41> Nutritional Appearance: obese <COLTON Reyes Last Filed: 08/02/24 15:41> Orientation/consciousness: patient oriented x3 <COLTON Reyes Last Filed: 08/02/24 15:41> Resp: Effort & Inspection: normal respiratory effort, able to speak in complete sentences, no respiratory distress and no use of accessory muscles <COLTON Reyes - Last Filed: 08/02/24 15:41> Auscultation: clear to auscultation bilaterally <COLTON Reyes - Last Filed: 08/02/24 15:41> Neuro: Other: left UE weakness, handgrasp weakness; face symmetrical, tongue midline <COLTON Reyes - Last Filed: 08/02/24 15:41> General: patient oriented x3 <COLTON Reyes - Last Filed: 08/02/24 15:41> DS: Data Data Completed and Pending Labs on day of discharge: Laboratory Results - last 24 hr 07/31/24 07/31/24 08/01/24 15:28 20:27 07:34 POC Glucose 135 H 269 H 114 08/01/24 11:42 POC Glucose 103 <Nikki Ovalle NP - Last Filed: 08/01/24 14:22> Discharge Plan Discharge Anticipated Discharge Date/Time: 08/02/24 15:33 <Nikki Ovalle NP - Last Filed: 08/01/24 14:22> Patient Disposition: Home Health Service <Nikki Ovalle NP - Last Filed: 08/01/24 14:22> Discharge Diagnosis: Acute on chronic COPD exacerbation Enterovirus/rhino virus <Nikki Ovalle NP - Last Filed: 08/01/24 14:22> Acute on chronic COPD exacerbation Enterovirus/rhino virus <COLTON Reyes - Last Filed: 08/02/24 15:41> Referrals: Name,MD Kiel [Primary Care Provider] - 1 Week <Nikki Ovalle NP - Last Filed: 08/01/24 14:22> Discharge Medications: New prednisone 20 mg tablet 40 mg PO DAILY 4 Days Qty: 8 0RF Continued pyridoxine (vitamin B6) 100 mg tablet 100 mg PO DAILY 90 Days Qty: 90 3RF Advair HFA 115-21 mcg/actuation HFA aerosol inhaler 2 puff inhalation Q12H 30 Days Qty: 12 5RF Rx Instructions: administer with spacer Combivent Respimat 20-100 mcg/actuation mist 1 puff PO Q6H Qty: 4 3RF losartan 50 mg tablet 50 mg PO DAILY oxcarbazepine 150 mg tablet 150 mg PO DAILY calcium carbonate-vitamin D3 600 mg-5 mcg (200 unit) tablet 1 tab PO BID meloxicam 7.5 mg tablet 7.5 mg PO DAILY famotidine 20 mg tablet 20 mg PO BID trazodone 100 mg tablet 100 mg PO BEDTIME PRN (Reason: insomnia) baclofen 10 mg tablet 10 mg PO TID PRN (Reason: muscle spasm) furosemide 20 mg tablet 20 mg PO DAILY albuterol sulfate [Ventolin HFA] 90 mcg/actuation HFA aerosol inhaler 2 puff INHALATION Q4H PRN (Reason: wheezing) ezetimibe 10 mg tablet 10 mg PO DAILY icosapent ethyl 1 gram capsule 2 g PO BID Mounjaro 15 mg/0.5 mL pen injector 15 mg subcut FR acetaminophen 650 mg tablet extended release 650 mg PO Q8H PRN (Reason: Mild Pain (Scale Score 1-4)) albuterol sulfate 2.5 mg /3 mL (0.083 %) solution for nebulization 2.5 mg inhalation Q4H PRN (Reason: shortness of breath or wheezing) cetirizine [Zyrtec] 10 mg tablet 10 mg PO DAILY oxycodone 10 mg tablet 10 mg PO DAILY PRN (Reason: headache) Qty: 30 0RF Rx Instructions: Partial Fill upon patient request. montelukast [Singulair] 10 mg tablet 10 mg PO BEDTIME gabapentin 600 mg tablet 600 mg PO TID PRN (Reason: Pain) metoprolol succinate 25 mg tablet extended release 24 hr 25 mg PO BEDTIME (DME) pen needle, diabetic [Pentips Pen Needle] 32 gauge x 5/32 needle See Rx Instructions .ROUTE DAILY Qty: 50 Rx Instructions: As directed paroxetine HCl 40 mg tablet 40 mg PO BEDTIME Lantus Solostar U-100 Insulin 100 unit/mL (3 mL) insulin pen 36 unit subcut DAILY lidocaine 5 % adhesive patch,medicated 1 patch topical DAILY PRN (Reason: Pain) Rx Instructions: leave on most painful area for up to 12 hrs oxcarbazepine 300 mg tablet 450 mg PO BEDTIME clonidine HCl 0.1 mg tablet 0.1 mg PO BEDTIME metformin 500 mg tablet extended release 24 hr 500 mg PO BEDTIME aspirin 81 mg tablet,chewable 1 tab PO BEDTIME atorvastatin 80 mg tablet 80 mg PO BEDTIME <Nikki Ovalle NP - Last Filed: 08/01/24 14:22> Discharge Orders: Discharge Order (Routine); Ordered 08/02/24 Ordered By: Alexandra Landaverde <Nikki Ovalle NP - Last Filed: 08/01/24 14:22> Diet: Advance to usual diet <Nikki Ovalle NP - Last Filed: 08/01/24 14:22> Advance to usual diet <COLTON Reyes - Last Filed: 08/02/24 15:41> Activity on Discharge: As tolerated <Nikki Ovalle NP - Last Filed: 08/01/24 14:22> As tolerated <COLTON Reyes - Last Filed: 08/02/24 15:41> Stand Alone Forms: Patient Portal Discharge page <Nikki Ovalle NP - Last Filed: 08/01/24 14:22> Print Language: Indian <Nikki Ovalle NP - Last Filed: 08/01/24 14:22> Care Plan Goals: Complete course of steroids <Nikki Ovalle NP - Last Filed: 08/01/24 14:22> Health Concerns: Acute on chronic COPD exacerbation Enterovirus/rhino virus likely cause of exacerbation dizziness/falls brain lesion left hand/arm weakness <Nikki Ovalle NP - Last Filed: 08/01/24 14:22> Plan of Treatment: Complete course of steroids as prescribed for COPD exacerbation Call to schedule follow-up appointment with PCP due to ongoing dizziness/frequent falls PT recommended STR, but since you have declined you will be discharged home with PT/OT/VNA services orthostatic blood pressure was negative but would recommend orthostatic precautions as discussion. Take all medications as prescribed <Nikki Ovalle NP - Last Filed: 08/01/24 14:22> Assessment: See discharge summary <Nikki Ovalle NP - Last Filed: 08/01/24 14:22>
[2024-08-01] MEDS: Ketorolac Tromethamine 15 MG/ML VIAL IVPUSH (15:45)
[2024-08-01 15:46] LABS: Glucose, Whole Blood 116 mg/dL (60-115)
[2024-08-01 19:48] LABS: Glucose, Whole Blood 154 mg/dL (60-115)
[2024-08-01] MEDS: Metoprolol Succinate ER 25 MG TAB.ER.24H PO (20:25)
[2024-08-01] MEDS: PARoxetine HCL 40 MG TABLET PO (20:25)
[2024-08-01] MEDS: Aspirin 81 MG TAB.CHEW PO (20:25)
[2024-08-01] MEDS: OXcarbazepine 150 MG TABLET 450 MG PO (20:25)
[2024-08-01] MEDS: Atorvastatin Calcium 80 MG TABLET PO (20:25)
[2024-08-01] MEDS: methylPREDNISolone Sod Succ 40 MG/ML VIAL IVPUSH (20:26)
[2024-08-01] MEDS: Montelukast Sodium 10 MG TABLET PO (20:26)
[2024-08-01] MEDS: Insulin Lispro 100 UNIT/ML 3 ML VIAL SUBCUT (20:26)
[2024-08-01] MEDS: Morphine Sulfate 2 MG/ML CARTRIDGE IVPUSH (20:26)
[2024-08-01] MEDS: Enoxaparin Sodium 40 MG/0.4 ML SYRINGE SUBCUT (20:26)
[2024-08-02] VITALS (9 sets, daily range): BP systolic 126–157; BP diastolic 58–86; PULSE 64–100; RESP 18–20; TEMP 36–37; O2SAT 94–97
--- NOTE | 2024-08-02 05:58 | PM.EVENT ---
Event Note Date of Service: 08/02/24 Event Note: Nurse reported unwitnessed fall. ?Hit head and neck. Will obtain CT scan. Patient did not lose consciousness but felt dizzy before the fall. Will resuscitate with IV crystalloids and obtain orthostatics. Time Spent With Patient Time: Total time managing care of this patient today ____ minutes.
[2024-08-02] MEDS: Lactated Ringers 1,000 ML 999 ML IV (07:01)
[2024-08-02 07:11] LABS: Glucose, Whole Blood 150 mg/dL (60-115)
[2024-08-02] MEDS: Albuterol/Iprat 2.5/0.5MG 3 ML AMPUL.NEB INHALE (08:13)
--- NOTE | 2024-08-02 08:48 | PC.NURSE ---
0545. Pt found by [employer]LECULAR BIOLOG[employer] PROFESSOR with bed alarm sounding sitting on the floor. Patient during the day had been refusing all bed alarms and had been ambulating to the bathroom stand by assistance and had taken a shower. Overnight the bed alarm was turned on as patient received night time medication and had been ambulating to the bathroom with assistance. [facility] [place] to bedside. Patient reports she attempted to get OOB and wanted to ambulate to the bathroom. Pt reports she felt dizzy upon standing and did not lose consciousness. Patient alert oriented x4. Able to move all extremities except for left arm chronic flaccid from previous stroke. Pt reports left neck soreness and abrasion present. Pt also found to have small quarter size lump located occipital part of head. C-collar applied and patient c spine precautions transferred back to bed. Dr. Dodge notified and Head/ Cervical Spine CT and left hip xray ordered and performed. Patient remained alert oriented x4 and VSS. Imaging results pending and once cleared Orthostatic VS to be obtained as ordered. IVF's ordered and started upon return to the unit and oncoming RN given shift report. Patient's daughter Sarita notified of events per patient's request.
[2024-08-02] MEDS: Insulin Glargine,Hum.rec.anlog 100 UNIT/ML 10 ML VIAL 36 UNIT SUBCUT (09:37)
[2024-08-02] MEDS: methylPREDNISolone Sod Succ 40 MG/ML VIAL IVPUSH (09:40)
[2024-08-02] MEDS: Pyridoxine HCl (Vitamin B6) 50 MG TABLET 100 MG PO (09:40)
[2024-08-02] MEDS: Ketorolac Tromethamine 15 MG/ML VIAL IVPUSH (09:40)
[2024-08-02] MEDS: guaiFENesin LA 600 MG TAB.ER.12H PO (09:41)
[2024-08-02] MEDS: Loratadine 10 MG TABLET PO (09:41)
[2024-08-02] MEDS: OXcarbazepine 150 MG TABLET PO (09:41)
[2024-08-02] MEDS: Calcium + Vitamin D 250 MG TABLET PO (09:41)
[2024-08-02 11:05] LABS: Glucose, Whole Blood 183 mg/dL (60-115)
[2024-08-02] MEDS: Acetaminophen 325 MG TABLET 975 MG PO (11:31)
[2024-08-02] MEDS: Insulin Lispro 100 UNIT/ML 3 ML VIAL SUBCUT (11:32)
--- NOTE | 2024-08-02 12:52 | P.CNNE_ITS ---
History of Present Illness Data of Consult Service Date: 08/02/24 Primary Care Provider: MD KENAN Mccord Reason for consult: Brain lesion 58 years old woman with a known right deep brain lesion suggestive of either resolving hematoma or cancer. She was initially treated with steroids an MRI was repeated, which revealed significant resolution of this lesion and steroids were stopped. Now she was in hospital for pulmonary reasons and apparently because of unsteadiness and CAT scan of brain was done revealing the same lesion again and this consultation was requested. [facility] Past Medical History Medical History Coronary artery disease Insulin dependent type 2 diabetes mellitus Exposure to rabies Lymphoma Restrictive lung disease secondary to obesity COPD (chronic obstructive pulmonary disease) Nocturnal hypoxemia DRE (obstructive sleep apnea) Cough Nicotine dependence, cigarettes, uncomplicated Allergic rhinitis Morbid obesity Hyperlipidemia GERD (gastroesophageal reflux disease) Tubular adenoma Chronic idiopathic constipation IBS (irritable bowel syndrome) Back pain Depression Family History Family History Mother Diabetes Heart muscle disorder caused by another medical condition Father Diabetes Epilepsy Sister No problems noted. Sister No problems noted. Sister No problems noted. Sister No problems noted. Sister No problems noted. Brother No problems noted. Brother No problems noted. Brother No problems noted. Brother No problems noted. Brother No problems noted. Brother No problems noted. Daughter No problems noted. Daughter No problems noted. Son No problems noted. Son No problems noted. Son No problems noted. Surgical History Surgical History History of total right knee replacement (TKR) History of appendectomy (~1978) History of (~1986) History of hysterectomy (~1995) History of lithotripsy (~2018) History of carpal tunnel surgery of right wrist (~2020) History of colonoscopy History of esophagogastroduodenoscopy (EGD) Social History Social History Household Members: Other Household Members Other:: grandson Housing: Apartment Are you a primary manager career to a significant other at home: No Do you presently have visiting nurse or other home services: No Alcohol intake: current Alcohol intake frequency: a few times a week Patient Tobacco Use Status: Current everyday Tobacco user Tobacco use type: Cigarette Cigarette Packs Per Day: 2 Cigarettes Per Day: 40.0 Years Smoked: (onset 13yo, x 42yrs, max 2ppd, now 1/2ppd - 30PYH) e-Cigarette/Vaping Use: Never Used Second Hand Smoke Exposure: No Substance Use Type: Marijuana service: No Current occupational status: disabled Current occupation: rt handed Meds Allergies Allergy/AdvReac Type Severity Reaction Status Date / Time penicillin G [Penicillin G] Allergy Mild SWELLING Verified 07/30/24 09:48 barium sulfate Allergy Unknown HIVES Verified 07/30/24 09:48 [ORAL CONTRAST] cephalexin Allergy Unknown Unknown Verified 07/30/24 09:48 Active Medications: Current Medications Acetaminophen (Acetaminophen 325 Mg Tablet) 975 mg PO Q6H PRN PRN Reason: Pain, Mild 1-3,fever,headache Last Admin: 08/02/24 11:31 Dose: 975 mg Albuterol Sulfate (Albuterol Sulfate (0.083%) 2.5 Mg/3 Ml Vial.Neb) 2.5 mg INHALE Q2H PRN PRN Reason: Shortness of Breath/Wheezing Albuterol/Ipratropium (Albuterol/Iprat 2.5/0.5mg 3 Ml Ampul.Neb) 3 ml INHALE RQ4H WHILE AWAKE [facility] Last Admin: 08/02/24 11:45 Dose: Not Given Aspirin (Aspirin 81 Mg Tab.Chew) 81 mg PO BEDTIME [facility] Last Admin: 08/01/24 20:25 Dose: 81 mg Atorvastatin Calcium (Atorvastatin Calcium 80 Mg Tablet) 80 mg PO BEDTIME [facility] Last Admin: 08/01/24 20:25 Dose: 80 mg Baclofen (Baclofen 10 Mg Tablet) 10 mg PO TID PRN PRN Reason: muscle spasm Calcium Carbonate/Cholecalciferol (Calcium + Vitamin D 250 Mg Tablet) 250 mg PO BID [facility] Last Admin: 08/02/24 09:41 Dose: 250 mg Dextrose (Dextrose 50 % 25 Gm/50 Ml Syringe) 25 gm IVPUSH Q15M PRN; Protocol PRN Reason: per Hypoglycemia Standing Ord. Enoxaparin Sodium (Enoxaparin Sodium 40 Mg/0.4 Ml Syringe) 40 mg SUBCUT Q24H [facility] Last Admin: 08/01/24 20:26 Dose: 40 mg Glucose (Glucose Gel 15 Gm Gel..Gram.) 15 gm PO Q15M PRN; Protocol PRN Reason: per Hypoglycemia Standing Ord. Guaifenesin (Guaifenesin 200 Mg/10 Ml 10 Ml Liquid) 10 ml PO Q6H PRN PRN Reason: Cough Last Admin: 08/01/24 00:08 Dose: 10 ml Guaifenesin (Guaifenesin La 600 Mg Tab.Er.12h) 600 mg PO BID [facility] Last Admin: 08/02/24 09:41 Dose: 600 mg Insulin Glargine (Insulin Glargine,Hum.Rec.Anlog 100 Unit/Ml 10 Ml Vial) 36 unit SUBCUT DAILY [facility] Last Admin: 08/02/24 09:37 Dose: 36 unit Insulin Human Lispro (Insulin Lispro 100 Unit/Ml 3 Ml Vial) 0 unit SUBCUT QIDACHS [facility]; Protocol Last Admin: 08/02/24 11:32 Dose: 2 unit Ketorolac Tromethamine (Ketorolac Tromethamine 15 Mg/Ml Vial) 15 mg IVPUSH Q6H [facility] Stop: 08/06/24 11:59 Last Admin: 08/02/24 09:40 Dose: 15 mg Loratadine (Loratadine 10 Mg Tablet) 10 mg PO DAILY [facility] Last Admin: 08/02/24 09:41 Dose: 10 mg Losartan Potassium (Losartan Potassium 50 Mg Tablet) 50 mg PO DAILY [facility]; Protocol Last Admin: 07/31/24 08:05 Dose: 50 mg Melatonin (Melatonin 3 Mg Tablet) 6 mg PO BEDTIME PRN PRN Reason: Insomnia Methylprednisolone Sodium Succinate (Methylprednisolone Sod Succ 40 Mg/Ml Vial) 40 mg IVPUSH BID [facility] Last Admin: 08/02/24 09:40 Dose: 40 mg Metoprolol Succinate (Metoprolol Succinate Er 25 Mg Tab.Er.24h) 25 mg PO BEDTIME [facility]; Protocol Last Admin: 08/01/24 20:25 Dose: 25 mg Montelukast Sodium (Montelukast Sodium 10 Mg Tablet) 10 mg PO BEDTIME [facility] Last Admin: 08/01/24 20:26 Dose: 10 mg Morphine Sulfate (Morphine Sulfate 2 Mg/Ml Cartridge) 2 mg IVPUSH Q6H PRN; Protocol PRN Reason: Pain, Severe (Pain Scale 7-10) Last Admin: 08/01/24 20:26 Dose: 2 mg Oxcarbazepine (Oxcarbazepine 150 Mg Tablet) 150 mg PO DAILY [facility] Last Admin: 08/02/24 09:41 Dose: 150 mg Oxcarbazepine (Oxcarbazepine 150 Mg Tablet) 450 mg PO BEDTIME [facility] Last Admin: 08/01/24 20:25 Dose: 450 mg Oxycodone HCl (Oxycodone Hcl Immed Release 5 Mg Tablet) 10 mg PO DAILY PRN PRN Reason: headache Last Admin: 07/31/24 23:07 Dose: 10 mg Paroxetine HCl (Paroxetine Hcl 40 Mg Tablet) 40 mg PO BEDTIME [facility] Last Admin: 08/01/24 20:25 Dose: 40 mg Pyridoxine HCl (Pyridoxine Hcl (Vitamin B6) 50 Mg Tablet) 100 mg PO DAILY [facility] Last Admin: 08/02/24 09:40 Dose: 100 mg Sodium Chloride (0.9 % Sodium Chloride Flush 3 Ml Syringe) 3 ml IVFLUSH QSHIFT [facility] Last Admin: 08/02/24 07:28 Dose: Not Given Trazodone HCl (Trazodone Hcl 100 Mg Tablet) 100 mg PO BEDTIME PRN PRN Reason: insomnia Last Admin: 07/30/24 22:43 Dose: 100 mg Home Medications ?Medication ?Instructions ?Recorded ?Confirmed ?Last Taken ?Type montelukast 10 mg tablet 10 mg PO BEDTIME 02/13/20 07/30/24 07/30/24 History (Singulair) paroxetine HCl 40 mg tablet 40 mg PO BEDTIME 12/05/20 07/30/24 07/30/24 History pen needle, diabetic 32 gauge x #50 ea 12/05/20 07/04/24 Unknown History (Pentips Pen Needle) insulin glargine 100 unit/mL (3 36 unit subcut DAILY 05/26/21 07/30/24 07/30/24 History mL) subcutaneous pen (Lantus Solostar U-100 Insulin) gabapentin 600 mg tablet 600 mg PO TID PRN Pain 04/21/22 07/30/24 07/30/24 History lidocaine 5 % topical patch 1 patch topical DAILY PRN Pain 04/21/22 07/30/24 07/30/24 History metoprolol succinate 25 mg 25 mg PO BEDTIME 04/21/22 07/30/24 07/30/24 History tablet,extended release 24 hr oxcarbazepine 300 mg tablet 450 mg PO BEDTIME 04/21/22 07/30/24 07/30/24 History clonidine HCl 0.1 mg tablet 0.1 mg PO BEDTIME 07/08/22 07/30/24 07/30/24 History aspirin 81 mg chewable tablet 1 tab PO BEDTIME 01/05/23 07/30/24 07/30/24 History atorvastatin 80 mg tablet 80 mg PO BEDTIME 01/05/23 07/30/24 07/30/24 History metformin 500 mg tablet,extended 500 mg PO BEDTIME 01/05/23 07/30/24 07/30/24 History release 24 hr acetaminophen 650 mg 650 mg PO Q8H PRN Mild Pain (Scale 06/18/24 07/30/24 07/30/24 History tablet,extended release Score 1-4) albuterol sulfate 2.5 mg/3 mL 2.5 mg inhalation Q4H PRN 06/18/24 07/30/24 07/30/24 History (0.083 %) solution for nebulization shortness of breath or wheezing albuterol sulfate 90 mcg/actuation 2 puff inhalation Q4H PRN wheezing 06/18/24 07/30/24 07/30/24 History aerosol inhaler (Ventolin HFA) baclofen 10 mg tablet 10 mg PO TID PRN muscle spasm 06/18/24 07/30/24 07/30/24 History calcium 600 mg (as 1 tab PO BID 06/18/24 07/30/24 07/30/24 History carbonate)-vitamin D3 5 mcg (200 unit) tablet cetirizine 10 mg tablet (Zyrtec) 10 mg PO DAILY 06/18/24 07/30/24 07/30/24 History ezetimibe 10 mg tablet 10 mg PO DAILY 06/18/24 07/30/24 07/30/24 History famotidine 20 mg tablet 20 mg PO BID 06/18/24 07/30/24 07/30/24 History furosemide 20 mg tablet 20 mg PO DAILY 06/18/24 07/30/24 07/30/24 History icosapent ethyl 1 gram capsule 2 g PO BID 06/18/24 07/30/24 07/30/24 History losartan 50 mg tablet 50 mg PO DAILY 06/18/24 07/30/24 07/30/24 History meloxicam 7.5 mg tablet 7.5 mg PO DAILY 06/18/24 07/30/24 07/30/24 History oxcarbazepine 150 mg tablet 150 mg PO DAILY 06/18/24 07/30/24 07/30/24 History tirzepatide 15 mg/0.5 mL 15 mg subcut FR 06/18/24 07/30/24 07/27/24 History subcutaneous pen injector (Jayunjaro) trazodone 100 mg tablet 100 mg PO BEDTIME PRN insomnia 06/18/24 07/30/24 07/30/24 History Physical Exam 2 Vital Signs: Vital Signs: Last Vital Signs Temp 96.9 F 08/02/24 11:03 Pulse 66 08/02/24 11:03 Resp 20 08/02/24 11:03 BP 154/81 H 08/02/24 11:03 Pulse Ox 96 08/02/24 11:03 O2 Del Method Room Air 08/02/24 11:03 O2 Flow Rate 2 08/01/24 03:59 BMI result Body Mass Index 40.2 Neuro: Other: She is alert and awake with normal spontaneity of speech fluency comprehension and affect. She has [id number] left hemiparesis. Results Labs 07/31/24 06:20 07/31/24 06:20 Assessment and Plan (1) Brain lesion: Status: Acute Resolving brain lesion, probably resolving vascular lesion. My recommendation is to clinically follow and consider imaging only if her neurological exam would worsened. Otherwise this type of lesion could resolve in few months time. She would likely have persistent left hemiparesis. Procedures Date of Service Date of Service: 08/02/24
--- NOTE | 2024-08-02 15:25 | P.DS_ITS ---
DS: Providers Provider Date of admission: 07/30/24 17:45 Primary care physician: Kiel Shaffer MD Consults: 08/02/24 07:47 Consult to Neurology Routine Consulting Provider: [facility] Reason for consultation: dizzy/falls; abnormal brain imaging Has provider been notified: No DS: Diagnosis Discharge Diagnosis (1) Brain lesion: Status: Acute DS: Summary Hospital Course Hospital Course: History and physical as per admitting provider. Sarita Puga is a 58 years old woman with past medical history significant for COPD (nocturnal O2), restrictive lung disease ongoing tobacco smoker, type 2 diabetes mellitus, obstructive sleep apnea on nocturnal oxygen, lymphoma and obesity presents to the emergency department complaining of worsening shortness of breath over the last few days associated with chest tightness and productive cough of clear sputum. She denies fever or chills. She also denied palpitations, headache, dizziness, abdominal pain, nausea, vomiting and diarrhea. She did not report any acute urinary symptoms. She denied alcohol abuse or illicit drug abuse. She has an ongoing tobacco smoker. Recently received a course of prednisone. In the ED, she was found to have normal vital signs except for mild degree of tachypnea. She is currently not requiring supplemental oxygen. Blood workup showed no leukocytosis. Hemoglobin is 11.9 and platelets 157. There are no significant electrolyte imbalances. Bicarb is 30. BUN is 18 and creatinine 0.52. Last glucose 152. LFTs are normal. Troponin and BNP are normal. Viral testing for RSV is positive. Influenza and COVID-19 are negative. ECG showed NSR, IRRR and LVH changes without ischemic changes. CXR is negative. ED tx: Solu-Medrol 60 mg IV, magnesium 2 g IV, Tylenol 1 g IV, multiple nebs. 58-year-old woman treated for acute on chronic COPD exacerbation with history of tobacco use. Treated with IV steroids and scheduled DuoNebs as well as supplemental oxygen. Plan will be to discharge with a few days of oral predn isone and patient can continue her updraft inhalers as needed at home. Diabetes mellitus type 2. Continue home medications Hyperlipidemia. Continue statin History of CVA. Continue aspirin and statin Mental health. Continue Trileptal and paroxetine Hypertension. Continue metoprolol and losartan Tobacco use. Treated with nicotine replacement therapy inpatient. Educated on importance of tobacco cessation Morbid obesity. BMI 40.2. Discussed importance of weight management as this may be contributing to worsening of other comorbidities Physical Exam Vital Signs: Vital Signs: Last Vital Signs Temp 96.9 F 08/02/24 11:03 Pulse 66 08/02/24 11:03 Resp 20 08/02/24 11:03 BP 154/81 H 08/02/24 11:03 Pulse Ox 96 08/02/24 11:03 O2 Del Method Room Air 08/02/24 11:03 O2 Flow Rate 2 08/01/24 03:59 BMI result Body Mass Index 40.2 DS: Data Data Completed and Pending Labs on day of discharge: Laboratory Results - last 24 hr 08/01/24 08/01/24 08/02/24 15:42 19:25 07:08 POC Glucose 116 H 154 H 150 H 08/02/24 11:01 POC Glucose 183 H Discharge Plan Discharge Patient Disposition: Home, Self-Care Discharge Diagnosis: Acute on chronic COPD exacerbation Enterovirus/rhino virus Referrals: Name,MD Kiel [Primary Care Provider] - 1 Week Discharge Medications: New prednisone 10 mg tablet 40 mg PO DIRECTED Qty: 16 0RF Rx Instructions: 40 mg daily for 4 days Continued pyridoxine (vitamin B6) 100 mg tablet 100 mg PO DAILY 90 Days Qty: 90 3RF Advair HFA 115-21 mcg/actuation HFA aerosol inhaler 2 puff inhalation Q12H 30 Days Qty: 12 5RF Rx Instructions: administer with spacer Combivent Respimat 20-100 mcg/actuation mist 1 puff PO Q6H Qty: 4 3RF losartan 50 mg tablet 50 mg PO DAILY oxcarbazepine 150 mg tablet 150 mg PO DAILY calcium carbonate-vitamin D3 600 mg-5 mcg (200 unit) tablet 1 tab PO BID meloxicam 7.5 mg tablet 7.5 mg PO DAILY famotidine 20 mg tablet 20 mg PO BID trazodone 100 mg tablet 100 mg PO BEDTIME PRN (Reason: insomnia) baclofen 10 mg tablet 10 mg PO TID PRN (Reason: muscle spasm) furosemide 20 mg tablet 20 mg PO DAILY albuterol sulfate [Ventolin HFA] 90 mcg/actuation HFA aerosol inhaler 2 puff INHALATION Q4H PRN (Reason: wheezing) ezetimibe 10 mg tablet 10 mg PO DAILY icosapent ethyl 1 gram capsule 2 g PO BID M[facility]o 15 mg/0.5 mL pen injector 15 mg subcut FR acetaminophen 650 mg tablet extended release 650 mg PO Q8H PRN (Reason: Mild Pain (Scale Score 1-4)) albuterol sulfate 2.5 mg /3 mL (0.083 %) solution for nebulization 2.5 mg inhalation Q4H PRN (Reason: shortness of breath or wheezing) cetirizine [Zyrtec] 10 mg tablet 10 mg PO DAILY oxycodone 10 mg tablet 10 mg PO DAILY PRN (Reason: headache) Qty: 30 0RF Rx Instructions: Partial Fill upon patient request. montelukast [Singulair] 10 mg tablet 10 mg PO BEDTIME gabapentin 600 mg tablet 600 mg PO TID PRN (Reason: Pain) metoprolol succinate 25 mg tablet extended release 24 hr 25 mg PO BEDTIME (DME) pen needle, diabetic [Pentips Pen Needle] 32 gauge x 5/32 needle See Rx Instructions .ROUTE DAILY Qty: 50 Rx Instructions: As directed paroxetine HCl 40 mg tablet 40 mg PO BEDTIME Lantus Solostar U-100 Insulin 100 unit/mL (3 mL) insulin pen 36 unit subcut DAILY lidocaine 5 % adhesive patch,medicated 1 patch topical DAILY PRN (Reason: Pain) Rx Instructions: leave on most painful area for up to 12 hrs oxcarbazepine 300 mg tablet 450 mg PO BEDTIME clonidine HCl 0.1 mg tablet 0.1 mg PO BEDTIME metformin 500 mg tablet extended release 24 hr 500 mg PO BEDTIME aspirin 81 mg tablet,chewable 1 tab PO BEDTIME atorvastatin 80 mg tablet 80 mg PO BEDTIME Diet: Advance to usual diet Activity on Discharge: As tolerated Stand Alone Forms: Patient Portal Discharge page Print Language: Slovenian Care Plan Goals: Complete course of steroids Health Concerns: Acute on chronic COPD exacerbation Enterovirus/rhino virus Plan of Treatment: Follow up with primary care provider as needed Take all medications as prescribed Assessment: See discharge summary
[2024-08-02 15:47] LABS: Glucose, Whole Blood 193 mg/dL (60-115)
== END 2024-08-02 15:55 | disposition home health service (06) | DRG 140 ==
LOC: HO.ED 10:28 → HO.EDOVER 17:58 → HO.IMC 19:31
PROVIDERS: Nurse Practitioner Acute Care; Physician Assistant Medical; Admitting Provider Internal Medicine; Emergency Provider Emergency Medicine; PCP Internal Medicine Geriatric Medicine; Visit Provider Physician Assistant Medical
DX: J44.1 Chronic obstructive pulmonary disease with (acute) exacerbation (principal); B97.10 Unspecified enterovirus as the cause of diseases classified elsewhere; F17.210 Nicotine dependence, cigarettes, uncomplicated; B97.89 Other viral agents as the cause of diseases classified elsewhere; Z71.6 Tobacco abuse counseling; G47.33 Obstructive sleep apnea (adult) (pediatric); E11.9 Type 2 diabetes mellitus without complications; E78.5 Hyperlipidemia, unspecified; E66.01 Morbid (severe) obesity due to excess calories; W19.XXXA Unspecified fall, initial encounter; Z68.41 Body mass index [BMI] 40.0-44.9, adult; Z86.73 Personal history of transient ischemic attack (TIA), and cerebral infarction without residual deficits; Z79.4 Long term (current) use of insulin; Z79.84 Long term (current) use of oral hypoglycemic drugs; Z79.85 Long-term (current) use of injectable non-insulin antidiabetic drugs; Z79.899 Other long term (current) drug therapy
CPT/HCPCS: 0241U; 36415; 70450; 72125; 73502; 80048; 80053; 82947; 83735; 83880; 84484; 85025; 87633; 93005; 94640; 97162; 97166; 99285; J0131; J1650; J1885; J2270; J2919; J3475; J7120

== ENCOUNTER → 2024-07-30 09:54 | Outpatient (BNV) | payer MEDICAID, SELFPAY | PROVIDERS: Emergency Provider Emergency Medicine; Visit Provider Internal Medicine Cardiovascular Disease | DX: I45.10 Unspecified right bundle-branch block (principal) | CPT/HCPCS: 93010 ==

== ENCOUNTER 2024-07-30 17:45 | Outpatient (BNV) | payer MEDICAID, SELFPAY | END 2024-08-02 05:56 | PROVIDERS: Admitting Provider Internal Medicine; Emergency Provider Emergency Medicine; PCP Internal Medicine Geriatric Medicine; Visit Provider Radiology Diagnostic Radiology | DX: M54.2 Cervicalgia (principal); G93.89 Other specified disorders of brain; M25.552 Pain in left hip; W19.XXXA Unspecified fall, initial encounter | CPT/HCPCS: 70450; 72125; 73502 ==

== ENCOUNTER → 2024-07-30 17:45 | Outpatient (BNV) | payer MEDICAID, SELFPAY | PROVIDERS: Admitting Provider Internal Medicine; Emergency Provider Emergency Medicine; Visit Provider Internal Medicine | DX: J44.1 Chronic obstructive pulmonary disease with (acute) exacerbation (principal); B34.8 Other viral infections of unspecified site | CPT/HCPCS: 99223; 99232; 99239; 99499 ==

== ENCOUNTER → 2024-07-30 17:45 | Outpatient (BNV) | payer MEDICAID, SELFPAY | PROVIDERS: Admitting Provider Internal Medicine; Emergency Provider Emergency Medicine; PCP Internal Medicine Geriatric Medicine; Visit Provider Psychiatry & Neurology Neurology | DX: G93.9 Disorder of brain, unspecified (principal) | CPT/HCPCS: 99222 ==

== ENCOUNTER 2024-08-17 10:02 | Emergency (ER) | payer MEDICAID, SELFPAY ==
[2024-08-17] VITALS (8 sets, daily range): BP systolic 119–135; BP diastolic 76–88; PULSE 63–72; RESP 14–24; TEMP 35.9–37; O2SAT 95–100; BMI 42.3
--- NOTE | ~2024-08-17 | XR_ITS ---
EXAMINATION: XR CHEST 2 VIEWS HISTORY: fall, pain COMPARISON: Comparison is made with the prior examination dated 07/30/2024. FINDINGS: PA and lateral views of the chest are submitted. The lungs are expanded and clear. There is no pleural effusion, pneumothorax, or pulmonary vascular congestion. The heart is normal in size. There is calcification of the aortic arch. There is mild degenerative disc disease of the spine. XR/XR chest 2V IMPRESSION: No acute cardiopulmonary abnormality. Electronically signed by: Kenny Fernandes MD 08/17/2024 11:17 AM EDT
--- NOTE | ~2024-08-17 | XR_ITS ---
EXAMINATION: XR LUMBOSACRAL SPINE CLINICAL INFORMATION: pain, injury COMPARISON: January 24, 2024 TECHNIQUE: Three views of the lumbosacral spine. FINDINGS: There are 5 nonrib-bearing lumbar segments. SI joints are grossly unremarkable. Bridging anterior osteophytes are present at T11-12 and T12-L1. L1-2 demonstrates mild disc space narrowing, stable L3-4 demonstrates mild disc space narrowing and small anterior osteophytes. Stable. L4-5 demonstrates mild disc space narrowing, stable. Disc spaces are preserved otherwise. Vertebral body height and alignment is preserved without change Surgical clips are visible in the pelvis. Mild atherosclerotic ossification is present in the distal abdominal aorta.. XR/XR lumbar spine 2-3V IMPRESSION: Stable lumbar spine x-ray, multilevel degenerative disc disease, detailed above. Electronically signed by: Zohaib Murray MD 08/17/2024 11:24 AM EDT
--- NOTE | ~2024-08-17 | CT_ITS ---
EXAMINATION: CT HEAD WITHOUT CONTRAST CLINICAL INFORMATION: fall, head strike COMPARISON: August 02, 2024. TECHNIQUE: Contiguous axial imaging was performed from the skull base to vertex without intravenous administration of contrast. This CT examination was performed using dose optimization techniques as appropriate, variously including the following: *Automated exposure control *Adjustment of mA and/or kV according to patient size (this includes techniques or standardized protocols for targeted exams where dose is matched to indication/reason for exam; i.e. extremities or head) *Use of iterative reconstruction technique DLP: 756 mGy-cm FINDINGS: No acute cortical disruption in the bony calvarium or the skull base. Nonspecific subcentimeter lytic lesions in the deep lobe of the bony calvarium. Less conspicuous crescent-shaped slightly dense abnormality centered in the right cerebral peduncle/midbrain into the inferior right thalamus with a more pronounced hypodensity extending into the posterior limb right internal capsule. No acute intracranial hemorrhage, mass effect, midline shift, hydrocephalus or herniation. Jang-white matter differentiation is normal. Calcified plaques in the cavernous supracavernous segments of the ICAs. Sellar/suprasellar region demonstrated no gross masses. Craniocervical junction demonstrates normal position of the cerebellar tonsils. Mucosal thickening paranasal sinuses more pronounced on the left maxillary sinus. Poor dilatation. Tympanic cavities and mastoid cells are aerated. CT/CT head/brain wo IV con IMPRESSION: No acute fracture, bony calvarium. No acute intracranial hemorrhage. Evolving likely hemorrhagic stroke/versus subacute to old intra-axial hemorrhage, right cerebral peduncle/inferior right thalamus Electronically signed by: Felix Fall MD 08/17/2024 11:30 AM EDT
--- NOTE | ~2024-08-17 | XR_ITS ---
EXAMINATION: XR FEMUR, RIGHT CLINICAL INFORMATION: pain, injury COMPARISON: Right hip x-ray August 02, 2024 TECHNIQUE: AP and lateral views of the right femur were obtained. FINDINGS: Surgical clips are again identified in the pelvis. Hip joint spaces preserved and congruent. Total knee arthroplasty has been performed. No hardware loosening is identified. No fractures are evident. XR/XR femur RT 2V IMPRESSION: Unremarkable right femur. Electronically signed by: Zohaib Murray MD 08/17/2024 11:20 AM EDT
--- NOTE | 2024-08-17 10:16 | ED_ITS ---
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 (all interactions with this patient were facilitated with an [facility] rn palliative care) Mode of arrival: EMS Limitations: language barrier (all interactions with this patient were facilitated with an [facility] rn palliative care) History of Present Illness ED Provider: Natalie Martell PA-C HPI narrative: Patient is a 58 year old assigned female at with a history of COPD, hyperlipidemia, GERD, tubular adenoma, IBS, depression, lymphoma, CVA, and DRE presenting to the emergency department today with right thigh pain, left flank / back pain, chest pain, and headache after falling out of bed. Patient states that she was adjusting to get out of bed when she fell and now has all of this pain. Patient states that she took Gabapentin, Tylenol, and Oxycodone prior to her arrival today and she remains in pain. Patient denies any dizziness, lightheadedness, abdominal pain, nausea, vomiting, fever, chills, blurry vision, double vision, loss of vision, difficulty breathing, shortness of breath, night sweats, pain with urination, increased urinary frequency, increased urinary urgency, blood in her urine or stool, syncope or a near syncopal episode, bowel incontinence, bladder incontinence, or any other complaints at this time. Relieving factors: none Exacerbating factors: none Related Data Home Medications ?Medication ?Instructions ?Recorded ?Confirmed montelukast 10 mg tablet 10 mg PO BEDTIME 02/13/20 (Singulair) paroxetine HCl 40 mg tablet 40 mg PO BEDTIME 12/05/20 07/30/24 pen needle, diabetic 32 gauge x #50 ea 12/05/20 (Pentips Pen Needle) insulin glargine 100 unit/mL (3 36 unit subcut DAILY 0 05/26/21 07/30/24 mL) subcutaneous pen (Lantus Solostar U-100 Insulin) gabapentin 600 mg tablet 600 mg PO TID PRN Pain 04/2107/30/24 lidocaine 5 % topical patch 1 patch topical DAILY PRN Pain 04/21/22 07/30/24 metoprolol succinate 25 mg 25 mg PO BEDTIME 04/21/22 0 07/30/24 tablet,extended release 24 hr oxcarbazepine 300 mg tablet 450 mg PO BEDTIME 04/21/22 07/30/24 clonidine HCl 0.1 mg tablet 0.1 mg PO BEDTIME 07/08/22 07/30/24 aspirin 81 mg chewable tablet 1 tab PO BEDTIME 3 07/30/24 atorvastatin 80 mg tablet 80 mg PO BEDTIME 01/05/23 metformin 500 mg tablet,extended 500 mg PO BEDTIME 07/30/24 release 24 hr acetaminophen 650 mg 650 mg PO Q8H PRN Mild Pain (Scale 06/18/24 07/30/24 tablet,extended release Score 1-4) albuterol sulfate 2.5 mg/3 mL 2.5 mg inhalation Q4H WI N 06/18/24 07/30/24 (0.083 %) solution for nebulization shortness of breat h or wheezing albuterol sulfate 90 mcg/actuation 2 puff inhalation Q 4H PRN wheezing 06/18/24 07/30/24 aerosol inhaler (Ventolin HFA) baclofen 10 mg tablet 10 mg PO TID PRN muscle spas m 06/18/24 07/30/24 calcium 600 mg (as 1 tab PO BID 06/18/24 carbonate)-vitamin D3 5 mcg (200 unit) tablet cetirizine 10 mg tablet (Zyrtec) 10 mg PO DAILY 07/30/24 ezetimibe 10 mg tablet 10 mg PO DAILY 06/18/2411/15 famotidine 20 mg tablet 20 mg PO BID 06/18/24 furosemide 20 mg tablet 20 mg PO DAILY 06/18/2411/15 icosapent ethyl 1 gram capsule 2 g PO BID 06/18/2411/15 losartan 50 mg tablet 50 mg PO DAILY 06/18/2411/15 meloxicam 7.5 mg tablet 7.5 mg PO DAILY 06/18/2411/15 oxcarbazepine 150 mg tablet 150 mg PO DAILY 06/18/24 0 07/30/24 tirzepatide 15 mg/0.5 mL 15 mg subcut FR 06/18/2411/15 subcutaneous pen injector (Mounjaro) trazodone 100 mg tablet 100 mg PO BEDTIME PRN insomn ia 06/18/24 07/30/24 Previous Rx's ?Medication ?Instructions ?Recorded pyridoxine (vitamin B6) 100 mg 100 mg PO DAILY 90 days #90 tabs 11/30/23 tablet fluticasone propionate 115 2 puff inhalation Q12H ASTH MA/COPD 02/17/24 mcg-salmeterol 21 mcg/actuation 30 days #12 grams HFA inhaler (Advair HFA) oxycodone 10 mg tablet 10 mg PO DAILY PRN headache #30 06/20/24 tabs ipratropium 20 mcg-albuterol 100 1 puff PO Q6H #4 gram s 06/22/24 mcg/actuation mist for inhalation (Combivent Respimat) prednisone 20 mg tablet 40 mg (2 x 20 mg) PO DAILY 4 days 08/02/24 #8 tabs Allergies Allergy/AdvReac Type Severity Reaction Status Date / Time penicillin G (Penicillin G) Allergy Mild SWELLING Verified 08/17/24 10:18 barium sulfate (ORAL Allergy Unknown HIVES Verified 08/17/24 10:18 CONTRAST) cephalexin Allergy Unknown Unknown Verified 08/17/24 10:18 Review of Systems 2 Constitutional: Constitutional: Reports no additional constitutional complaints, Denies chills, Denies fever(s), Reports headache(s) and Denies night sweats Eyes: Eyes: Reports no additional eye complaints, Denies blurry vision, Denies change in vision, Denies diplopia, Denies eye discharge, Denies loss of vision and Denies eye pain ENT: Denies dizziness and Reports headache(s) Cardiovascular: Cardiovascular: Reports no additional cardiovascular complaints, Reports chest pain, Denies lightheadedness, Denies Loss of Consciousness and Denies dyspnea Respiratory: Respiratory: Reports no additional respiratory complaints and Denies dyspnea Gastrointestinal: Gastrointestinal: Reports no additional gastrointestinal complaints, Denies abdominal pain, Denies melena, Denies hematochezia, Denies change in bowel habits and Denies change in stool character Genitourinary: Genitourinary: Denies hematuria, Denies urinary frequency, Denies dysuria, Denies urinary incontinence, Denies urinary hesitancy and Denies urinary urgency Musculoskeletal: Musculoskeletal: Reports no additional musculoskeletal complaints, Denies numbness and Denies tingling Comments: right thigh pain left flank / back pain Neurologic: Denies dizziness, Reports headache(s), Denies loss of vision, Denies numbness and Denies tingling Psychiatric: Psychiatric: Reports no additional psychiatric complaints Endocrine: Endocrine: Reports no additional endocrine complaints Hematologic/Lymphatic: Hematologic/Lymphatic: Reports no additional hematologic/lymphatic complaints Allergic/Immunologic: Allergic/Immunologic: Reports no additional allergic/immunologic complaints [facility] Past Medical History Attestation statement: The following information was validated with the patient. Source: old records reviewed and nursing notes reviewed Medical History Reactive airway disease Coronary artery disease Insulin dependent type 2 diabetes mellitus Exposure to rabies Lymphoma Restrictive lung disease secondary to obesity COPD (chronic obstructive pulmonary disease) Nocturnal hypoxemia DRE (obstructive sleep apnea) Cough Nicotine dependence, cigarettes, uncomplicated Allergic rhinitis Morbid obesity Hyperlipidemia GERD (gastroesophageal reflux disease) Tubular adenoma Chronic idiopathic constipation IBS (irritable bowel syndrome) Back pain Depression Surgical History History of total right knee replacement (TKR) History of appendectomy (~1978) History of (~1986) History of hysterectomy (~1995) History of lithotripsy (~2018) History of carpal tunnel surgery of right wrist (~2020) History of colonoscopy History of esophagogastroduodenoscopy (EGD) Family History Family History Mother Diabetes Heart muscle disorder caused by another medical condition Father Diabetes Epilepsy Sister No problems noted. Sister No problems noted. Sister No problems noted. Sister No problems noted. Sister No problems noted. Brother No problems noted. Brother No problems noted. Brother No problems noted. Brother No problems noted. Brother No problems noted. Brother No problems noted. Daughter No problems noted. Daughter No problems noted. Son No problems noted. Son No problems noted. Son No problems noted. Social History Social History Household Members: Other Household Members Other:: grandson Housing: Apartment Are you a primary assurance services manager health care to a significant other at home: No Do you presently have visiting nurse or other home services: No Alcohol intake: current Alcohol intake frequency: a few times a week Patient Tobacco Use Status: Current everyday Tobacco user Tobacco use type: Cigarette Cigarette Packs Per Day: 2 Cigarettes Per Day: 40.0 Years Smoked: (onset 13yo, x 42yrs, max 2ppd, now 1/2ppd - 30PYH) Smoked in Last 30 Days: Yes e-Cigarette/Vaping Use: Never Used Second Hand Smoke Exposure: No Substance Use Type: Marijuana Substance Use Frequency: Chronic Longstanding Advance Directives: Yes Advance Directives Information Provided: No Advance Directives on File: No service: No Current occupational status: disabled Current occupation: rt handed Physical Exam ED Vital Signs: Vital Signs - 24 hr 08/17/24 14:00 08/17/24 15:10 08/17/24 15:19 Temperature 98.5 F Pulse Rate 63 63 67 Respiratory Rate 14 19 Blood Pressure 134/88 134/88 133/80 Pulse Oximetry 97 97 100 Oxygen Delivery Method Room Air 08/17/24 16:00 08/17/24 17:03 Temperature 98.6 F 98.6 F Pulse Rate 66 66 Respiratory Rate 15 15 Blood Pressure 129/80 129/80 Pulse Oximetry 99 99 Oxygen Delivery Method Room Air Room Air BMI result Body Mass Index 42.3 Const General: cooperative, no acute distress, alert and awake Nutritional Appearance: well nourished Orientation/consciousness: patient oriented x3 HENMT Head: Yes normal to inspection and Yes atraumatic Ears: hearing grossly normal bilaterally and external ears normal General nose exam: Normal external nose present, no nasal discharge noted and no epistaxis Face and sinus: Yes normal facial exam, No abrasion and No laceration Mouth: Normal oral and palatal mucosa present, no drooling and no muffled voice Eyes General: appearance normal, both eyes and all related structures Periorbital: periorbital findings normal Eyelids: Yes eyelids normal Conjunctivae: conjunctivae normal Pupils: Equal, round and reactive pupils present EOM: EOMs intact bilaterally Neck Neck: Yes normal visual inspection, Yes full ROM and Yes no lymphadenopathy Resp Effort & Inspection: normal respiratory effort and able to speak in complete sentences Neuro Other: left sided hemiparesis - chronic for the patient General: patient oriented x3 Cranial nerves: Yes Equal, round and reactive pupils present Cognition (Neuro): normal cognition Extrem Other: left sided hemiparesis - chronic for the patient General: Yes normal to inspection and Yes capillary refill normal Psych Appearance: grossly normal Mental Status: mental status grossly normal Affect: normal affect Attitude: cooperative Thought process: Normal thought process present Thought content: Normal thought content present Insight: Good insight present (Psych) Course Consultations Consultation #1: Attending note, Dr. Xander Veliz: I discussed this case with the physician application assistant, I examined the patient, and I reviewed the CT imaging. The concern was regarding the CT reading of ?evolving likely hemorrhagic stroke versus subacute to old intra-axial hemorrhage, right cerebral peduncle/inferior right thalamus. The report also indicates ?no acute intracranial hemorrhage. ? Over the past few months the patient has had [address] scans and MRIs involving lesions in the same area. I suspect that today's CAT scan, which I think looks less acute than her last CAT scan, represents the natural evolution of the original event rather than any other significant change. The patient has some left-sided facial weakness and some left arm weakness which has been present for several months and which does not seem to be acutely worsening. I therefore think there is no new acute neurological deterioration or event at work today. Medications Administered Discontinued Medications Generic Name Dose Route Start Last Admin Trade Name Freq PRN Reason Stop Dose Admin Hydromorphone HCl 0.5 mg 08/17/24 10:20 08/17/24 10:30 Hydromorphone Hcl 0.5 Mg/0.5 Ml Syringe IVPUSH 08/17/24 10:21 0.5 mg ONCE ONE Administration Protocol Hydromorphone HCl 0.5 mg 08/17/24 11:23 08/17/24 11:56 Hydromorphone Hcl 0.5 Mg/0.5 Ml Syringe IVPUSH 08/17/24 11:24 0.5 mg ONCE ONE Administration Protocol Lorazepam 1 mg 08/17/24 10:20 08/17/24 10:29 Lorazepam 1 Mg Tablet PO 08/17/24 10:21 1 mg ONCE ONE Administration Medical Decision Making Medical Decision Making MDM Narrative: Patient is a 58 year old assigned female at with a history of COPD, hyperlipidemia, GERD, tubular adenoma, IBS, depression, lymphoma, CVA, and DRE presenting to the emergency department today with right thigh pain, left flank / back pain, chest pain, and headache after falling out of bed. Patient's physical exam showed left sided hemiparesis which is chronic for the patient s/p CVA. Patient's blood work was unremarkable. Patient's right femur, lumbar, and chest x-rays showed no acute process. Patient's head CT showed the previously known stroke. I consulted with my attending physician, Dr. Veliz, who agreed that the patient's CT head findings are not worsening / different than previously reported. I explained my physical exam findings as well as all test results to the patient. I answered all questions asked by the patient. I clarified with the patient that the pain she is having is long standing pain and she is having a difficult time controlling it with her at home gabapentin, oxycodone, and tylenol. Patient will remain in observation status in the department to be evaluated by the physical therapy and case management teams. 1630 ---> Patient met with physical therapy who recommended short term rehab. Case management met with the patient and her daughter who both declined putting the patient in short term rehab and requested having the patient go home with outpatient services which they are working on setting up come Tuesday morning. Observation care revealed the the patient does not meet medical necessity for hospitalization. Final disposition discussed with the patient who verbalized understanding and agreement. Patient completed observation care at 1630. Differential Diagnosis Differential Diagnoses: The differential diagnosis associated with the presentation includes Acute on chronic pain Admission/Observation Consideration of admission/observation: Escalation of care including admission/observation considered Patient would have been admitted to the hospital had her work up had any findings where hospital admission was appropriate and her clinical presentation warranted hospital admission. Lab Data [facility] Lab Attestation statement: I reviewed the patient's lab results. My interpretation of these results are in the [facility] Rationale portion of this note. 08/17/24 10:45 08/17/24 10:45 Labs: Lab Results 08/17/24 08/17/24 Range/Units 10:40 10:45 WBC 6.0 (4.8-10.8) X10*3/uL RBC 4.36 (4.20-5.50) X10*6/uL Hgb 12.2 (12.0-16.0) g/dl Hct 36.8 L (37.0-47.0) % MCV 84.4 (80.0-98.0) fL MCH 28.0 (27.0-33.0) pg MCHC 33.2 (31.0-35.0) g/dl RDW 14.4 (11.0-16.0) % Plt Count 126 L D (160-400) X10*3/uL MPV 12.7 H (9.4-12.3) fL Immature Gran % (Auto) 0.3 (0.0-0.4) % Neut % (Auto) 63.8 (45-73) % Lymph % (Auto) 26.1 (20-40) % Foard % (Auto) 7.6 (2-11) % Eos % (Auto) 1.5 (0-4) % Baso % (Auto) 0.7 (0-2) % Lymph # (Auto) 1.6 (1.2-4.9) X10*3/uL Foard # (Auto) 0.5 (0.1-1.2) X10*3/uL Eos # (Auto) 0.1 (0.0-0.4) X10*3/uL Baso # (Auto) 0.0 (0.0-0.2) X10*3/uL Abs Immat Gran (auto) 0.02 (0.00-0.03) X10*3/uL Absolute Neuts (auto) 3.8 (2.0-8.3) x10*3/uL Absolute Nucleated RBC 0.000 (0.0-0.012) X10*3/uL Nucleated RBC % (auto) 0.0 (0.0-0.2) /100WBC Smear Tech's Comments VERIFIED Sodium 136 (135-145) mmol/L Potassium 3.8 (3.3-5.1) mmol/L Chloride 103 (96-108) mmol/L Carbon Dioxide 24 (22-29) mmol/L Anion Gap 13 (12-20) BUN 12 (9-16) mg/dL Creatinine 0.47 L (0.5-1.4) mg/dL Estim Creat Clear Calc 153.9 Estimated GFR > 60 Random Glucose 177 H (60-115) mg/dL Calcium 8.7 D (8.4-10.2) mg/dL Magnesium 1.8 (1.6-2.6) mg/dL Total Bilirubin 0.7 (0.0-1.0) mg/dL AST 23 (5-31) U/L ALT 37 H (0-31) U/L Alkaline Phosphatase 55 (39-117) U/L Troponin I High Sens < 2.7 (<3.5-17.0) ng/L Total Protein 6.0 L (6.5-8.0) g/dL Albumin 3.7 (3.5-5.0) g/dL Influenza Type A (PCR) NEGATIVE (Negative) Influenza Type B (PCR) NEGATIVE (Negative) RSV RNA Qual (PCR) NEGATIVE (Negative) SARS-CoV-2 RNA (RT-PCR) NEGATIVE (Negative) Independent Interpretation I performed an independent interpretation of an: Plain X-Ray and CT Scan Interpretation: My interpretation is in agreement with the radiologist's impression of these imaging studies. L EXAMINATION: XR CHEST 2 VIEWS HISTORY: fall, pain COMPARISON: Comparison is made with the prior examination dated 07/30/2024. FINDINGS: PA and lateral views of the chest are submitted. The lungs are expanded and clear. There is no pleural effusion, pneumothorax, or pulmonary vascular congestion. The heart is normal in size. There is calcification of the aortic arch. There is mild degenerative disc disease of the spine. XR/XR chest 2V IMPRESSION: No acute cardiopulmonary abnormality. Electronically signed by: Kenny Fernandes MD 08/17/2024 11:17 AM EDT Dictated By: Kenny Fernandes MD Signed By: Electronically signed by Kenny Fernandes MD 08/17/24 1117 EXAMINATION: XR LUMBOSACRAL SPINE CLINICAL INFORMATION: pain, injury COMPARISON: January 24, 2024 TECHNIQUE: Three views of the lumbosacral spine. FINDINGS: There are 5 nonrib-bearing lumbar segments. SI joints are grossly unremarkable. Bridging anterior osteophytes are present at T11-12 and T12-L1. L1-2 demonstrates mild disc space narrowing, stable L3-4 demonstrates mild disc space narrowing and small anterior osteophytes. Stable. L4-5 demonstrates mild disc space narrowing, stable. Disc spaces are preserved otherwise. Vertebral body height and alignment is preserved without change Surgical clips are visible in the pelvis. Mild atherosclerotic ossification is present in the distal abdominal aorta. XR/XR lumbar spine 2-3V IMPRESSION: Stable lumbar spine x-ray, multilevel degenerative disc disease, detailed above. Electronically signed by: Zohaib Murray MD 08/17/2024 11:24 AM EDT Dictated By: Zohaib Murray MD Signed By: Electronically signed by Zohaib Murary MD 08/17/24 1124 EXAMINATION: XR FEMUR, RIGHT CLINICAL INFORMATION: pain, injury COMPARISON: Right hip x-ray August 02, 2024 TECHNIQUE: AP and lateral views of the right femur were obtained. FINDINGS: Surgical clips are again identified in the pelvis. Hip joint spaces preserved and congruent. Total knee arthroplasty has been performed. No hardware loosening is identified. No fractures are evident. XR/XR femur RT 2V IMPRESSION: Unremarkable right femur. Electronically signed by: Zohaib Murray MD 08/17/2024 11:20 AM EDT Dictated By: Zohaib Murray MD Signed By: Electronically signed by Zohaib Murray MD 08/17/24 1120 Report Number: [id number]: Total DLP = 756.00 mGy-cm EXAMINATION: CT HEAD WITHOUT CONTRAST CLINICAL INFORMATION: fall, head strike COMPARISON: August 02, 2024. TECHNIQUE: Contiguous axial imaging was performed from the skull base to vertex without intravenous administration of contrast. This CT examination was performed using dose optimization techniques as appropriate, variously including the following: *Automated exposure control *Adjustment of mA and/or kV according to patient size (this includes techniques or standardized protocols for targeted exams where dose is matched to indication/reason for exam; i.e. extremities or head) *Use of iterative reconstruction technique DLP: 756 mGy-cm FINDINGS: No acute cortical disruption in the bony calvarium or the skull base. Nonspecific subcentimeter lytic lesions in the deep lobe of the bony calvarium. Less conspicuous crescent-shaped slightly dense abnormality centered in the right cerebral peduncle/midbrain into the inferior right thalamus with a more pronounced hypodensity extending into the posterior limb right internal capsule. No acute intracranial hemorrhage, mass effect, midline shift, hydrocephalus or herniation. Jang-white matter differentiation is normal. Calcified plaques in the cavernous supracavernous segments of the ICAs. Sellar/suprasellar region demonstrated no gross masses. Craniocervical junction demonstrates normal position of the cerebellar tonsils. Mucosal thickening paranasal sinuses more pronounced on the left maxillary sinus. Poor dilatation. Tympanic cavities and mastoid cells are aerated. CT/CT head/brain wo IV con IMPRESSION: No acute fracture, bony calvarium. No acute intracranial hemorrhage. Evolving likely hemorrhagic stroke/versus subacute to old intra-axial hemorrhage, right cerebral peduncle/inferior right thalamus Electronically signed by: Felix Fall MD 08/17/2024 11:30 AM EDT Dictated By: Felix Mckinnon MD Signed By: Electronically signed by Felix Tilley MD 08/17/24 1130 Radiology Impression Discussion of test interpretation with radiology: I have reviewed the radiologist's reading. Independent Historian Clinical information obtained from an independent historian. History obtained from or confirmed by: EMS (EMS provided additional history and confirmed the history provided by the patient.) Critical Care Time Critical Care Time Critical Care Time: Yes Total Critical Care Time: 38 Attestation: I spent 38 minutes of Critical Care Time with this patient. This does not include time spent on separately reported billable procedures. Discharge Plan Discharge Clinical Impression: Chronic pain, History of hemiparesis Patient Disposition: Home, Self-Care Instructions: Chronic Pain (ED) Additional Instructions: Follow up with your primary care provider. Return to the emergency department immediately if your symptoms worsen or if you develop any dizziness, shortness of breath, difficulty breathing, chest pain, blurry vision, loss of vision, nausea, vomiting, abdominal pain, fever, chills, back pain, or any other complaints. [place]?seguimiento?con restrepo m?dico de atenci?n primaria. Acuda inmediatamente al servicio de urgencias si jean carlos s?ntomas empeoran o si presenta falta de aliento, dificultad para respirar, dolor tor?cico, mareos, aturdimiento, dolor de espalda, dolor abdominal, fiebre, escalofr?os o cualquier otro s?ntoma. Please see the information below about our Patient Portal. If you are not yet enrolled in the [facility] Patient Portal, you will receive an enrollment email invitation following your visit to any [facility] setting. You may also self-enroll in the Patient Portal by visiting our website: [email or web address] The following information is required to access the Patient Portal: - Your [facility] Medical Record Number - Your personal home email address (must match what is in your electronic medical record, Registration staff can assist with this) - Name - Date of Capabilities of the Patient Portal: - Message some providers - View upcoming appointments - Access your health summary, medical history, and visit history - View current conditions and allergies - View procedure and lab results - View your medications, including guidelines, side effects, and precautions - Complete pre-appointment questionnaires requested by your provider - Ready summary reports of your office visits and procedures To access the Patient Portal Mobile [employer], follow these directions: - Search [email or web address] in the [employer] Store or [employer] Store - Download the [employer] - Search for [facility] - Enter your login/password Portal del paciente Si usted no esta inscrito en el portal de pacientes de [facility], recibira tobias invitacion de inscripcion despues de restrepo visita al [facility] o al [facility] via correo electronico. Tambien puede inscribirse voluntariamente en el portal de pacientes visitando nuestra pagina web: [email or web address] La siguiente informacion sera requerida para acceder al portal: - Restrepo hansel de historia medica de [facility] - Restrepo direccion de correo electronico personal - Nombre - Fecha de nacimiento Capacidades: Las siguientes capacidades estan disponibles en el portal de pacientes: - Enviar mensajes a algunos doctores - Verificar proximas citas - Acceso a restrepo historial de jovon, registro medico e historial de visitas - Isatu las condiciones actuales y alergias isatu procedimientos y resultados del laboratorio - Isatu jean carlos medicamentos, incluyendo las pautas - Efectos secundarios y precauciones - Completar o llenar formularios / cuestionarios de - Citas solicitadas por restrepo doctor - Leer los resumenes de reportes medicos de jean carlos visitas y procedimientos Randolph acceder a la aplicacion movil: - [employer] en la [employer] o [employer] - Descargue la aplicacion - [facility] - Ingrese restrepo nombre de usuario / Contrasena Prescriptions: No Action pyridoxine (vitamin B6) 100 mg tablet 100 mg PO DAILY 90 Days Qty: 90 3RF Advair HFA 115-21 mcg/actuation HFA aerosol inhaler 2 puff inhalation Q12H 30 Days Qty: 12 5RF Rx Instructions: administer with spacer Combivent Respimat 20-100 mcg/actuation mist 1 puff PO Q6H Qty: 4 3RF losartan 50 mg tablet 50 mg PO DAILY oxcarbazepine 150 mg tablet 150 mg PO DAILY calcium carbonate-vitamin D3 600 mg-5 mcg (200 unit) tablet 1 tab PO BID meloxicam 7.5 mg tablet 7.5 mg PO DAILY famotidine 20 mg tablet 20 mg PO BID trazodone 100 mg tablet 100 mg PO BEDTIME PRN (Reason: insomnia) baclofen 10 mg tablet 10 mg PO TID PRN (Reason: muscle spasm) furosemide 20 mg tablet 20 mg PO DAILY albuterol sulfate [Ventolin HFA] 90 mcg/actuation HFA aerosol inhaler 2 puff INHALATION Q4H PRN (Reason: wheezing) ezetimibe 10 mg tablet 10 mg PO DAILY icosapent ethyl 1 gram capsule 2 g PO BID Mounjaro 15 mg/0.5 mL pen injector 15 mg subcut FR acetaminophen 650 mg tablet extended release 650 mg PO Q8H PRN (Reason: Mild Pain (Scale Score 1-4)) albuterol sulfate 2.5 mg /3 mL (0.083 %) solution for nebulization 2.5 mg inhalation Q4H PRN (Reason: shortness of breath or wheezing) cetirizine [Zyrtec] 10 mg tablet 10 mg PO DAILY oxycodone 10 mg tablet 10 mg PO DAILY PRN (Reason: headache) Qty: 30 0RF Rx Instructions: Partial Fill upon patient request. prednisone 20 mg tablet 40 mg PO DAILY 4 Days Qty: 8 0RF montelukast [Singulair] 10 mg tablet 10 mg PO BEDTIME gabapentin 600 mg tablet 600 mg PO TID PRN (Reason: Pain) metoprolol succinate 25 mg tablet extended release 24 hr 25 mg PO BEDTIME (DME) pen needle, diabetic [Pentips Pen Needle] 32 gauge x 5/32 needle See Rx Instructions .ROUTE DAILY Qty: 50 Rx Instructions: As directed paroxetine HCl 40 mg tablet 40 mg PO BEDTIME Lantus Solostar U-100 Insulin 100 unit/mL (3 mL) insulin pen 36 unit subcut DAILY lidocaine 5 % adhesive patch,medicated 1 patch topical DAILY PRN (Reason: Pain) Rx Instructions: leave on most painful area for up to 12 hrs oxcarbazepine 300 mg tablet 450 mg PO BEDTIME clonidine HCl 0.1 mg tablet 0.1 mg PO BEDTIME metformin 500 mg tablet extended release 24 hr 500 mg PO BEDTIME aspirin 81 mg tablet,chewable 1 tab PO BEDTIME atorvastatin 80 mg tablet 80 mg PO BEDTIME Referrals: Name,MD Kiel [Primary Care Provider, Internal Medicine] Interventions: ED Discharge Assessment Last Done: 08/17/24 17:03 Discharge Date/Time: 08/17/24 17:04 Print Language: Hong Konger
--- NOTE | 2024-08-17 10:20 | ECG_ITS ---
Test Reason : chest pain Blood Pressure : */* mmHG Vent. Rate : 68 BPM Atrial Rate : 68 BPM P-R Int : 134 ms QRS Dur : 86 ms QT Int : 404 ms P-R-T Axes : 12 -17 -14 degrees QTcB Int : 429 ms Normal sinus rhythm Minimal voltage criteria for LVH, may be normal variant ( R in aVL ) Nonspecific T wave abnormality Abnormal ECG When compared with ECG of 30-Jul-2024 10:01, No significant change was found Referred By: Natalie Martell Electronically Signed By: SIOMARA CARLTON
[2024-08-17] MEDS: LORazepam 1 MG TABLET PO (10:29)
[2024-08-17] MEDS: HYDROmorphone HCl 0.5 MG/0.5 ML SYRINGE IVPUSH ×2 (10:30→11:56)
[2024-08-17 11:08] LABS: Basophils Percent Auto 0.7 % (0-2); Eosinophils Absolute Auto 0.1 X10*3/uL (0.0-0.4); Eosinophils Percent Auto 1.5 % (0-4); Hematocrit 36.8 % (37.0-47.0); Hemoglobin 12.2 g/dl (12.0-16.0); Imm Gran Abs Auto 0.02 X10*3/uL (0.00-0.03); Imm Gran Pct Auto 0.3 % (0.0-0.4); Lymphocytes Absolute Auto 1.6 X10*3/uL (1.2-4.9); Lymphocytes Percent Auto 26.1 % (20-40); MANUAL DIFF FLAG SCAN; Mean Corpuscular HGB Conc 33.2 g/dl (31.0-35.0); Mean Corpuscular Volume 84.4 fL (80.0-98.0); Monocytes Absolute Auto 0.5 X10*3/uL (0.1-1.2); Monocytes Percent Auto 7.6 % (2-11); Neutrophils Absolute Auto 3.8 x10*3/uL (2.0-8.3); Neutrophils Percent Auto 63.8 % (45-73); PLT CLUMP 1; Red Blood Count 4.36 X10*6/uL (4.20-5.50); Red Cell Distribution Width 14.4 % (11.0-16.0); SCAN SMEAR FLAG 1
[2024-08-17 11:25] LABS: Albumin Level 3.7 g/dL (3.5-5.0); Alkaline Phosphatase 55 U/L (39-117); Anion Gap 13 (12-20); Aspartate Amino Transferase 23 U/L (5-31); Bilirubin Total 0.7 mg/dL (0.0-1.0); Blood Urea Nitrogen 12 mg/dL (9-16); Calcium 8.7 mg/dL (8.4-10.2); Carbon Dioxide 24 mmol/L (22-29); Chloride 103 mmol/L (96-108); Creatinine Clr Calc Pharmacy 153.9; Estimated Glomerular Filt Rate > 60; Glucose Random 177 mg/dL (60-115); Magnesium 1.8 mg/dL (1.6-2.6); Potassium 3.8 mmol/L (3.3-5.1); Sodium 136 mmol/L (135-145)
[2024-08-17 11:28] LABS: Mean Platelet Volume 12.7 fL (9.4-12.3); Platelet Count 126 X10*3/uL (160-400); SLIDE REVIEW VERIFIED; Troponin-I High Sensitivity < 2.7 ng/L (<3.5-17.0)
[2024-08-17 11:36] LABS: Influenza A PCR NEGATIVE (Negative); Influenza B PCR NEGATIVE (Negative); Resp Syncy Virus RNA Qual PCR NEGATIVE (Negative); SARS COV2 PCR INHOUSE NEGATIVE (Negative)
[2024-08-17 11:37] LABS: Alanine Aminotransferase 37 U/L (0-31)
--- OUTSIDE RECORDS SUMMARY | 2024-08-17 11:55 | XMS_ITS | Encounter Summary ---
Author Organization [employer] Address [address] [place] [address] Care Team Providers Care Marker Shipments Name Role Phone Name, Kiel BAILEY Primary Care Provider [phone] Katlyn Rodriguez PharmD Unavailable [phone] Encounter Details Date Type Department Care Team ([facility] Contact Info) Description 05/01/2024 Telephone [facility] MEDICINE [address] [place], [place] [phone] Name, MD Kiel [address] [place] [address] Social History Tobacco Use Types Packs/Day Years [...] Care Team (Late st Contact Info) Description 08/20/2024 9:30 AM EDT Clinical Support [address] [address] Opal Steiner RN 08/22/2024 10:00 AM EDT Clinical Support [address] [address] 10/02/2024 9:30 AM EDT Medication Management [address] [address] Katlyn Rodriguez PharmD [address] [place] [id number] documented as of this encounter Goals Goal Patient Goal Type Associated Problems Recent Progress Patient-Stated? Author Record your blood pressure once per day Blood Pressure No Katlyn Rodriguez PharmD Blood Pressure < 140/90 Blood Pressure 131/85(2024 9:09 AM EDT) No Puia, Katlyn, PharmD Hemoglobin [...] documented as of this encounter Care Teams Marker Shipments Relationship Specialty Start Date End Date Name, MD Kiel [address] [place] [address] PCP - General Family Medicine 07/15/15 Katlyn Rodriguez, PharmD [address] [place] [address] Pharmacist Internal Medicine 10/08/22 Marta Ovalle Brusher [employer] Tester 05/25/23 documented as of this encounter
--- NOTE | 2024-08-17 13:23 | PC.NURSE ---
Addendum entered by Claudette Fleming RN 08/17/24 13:25: Patient is a 58 years old woman with past medical history significant for COPD (nocturnal O2), restrictive lung disease ongoing tobacco smoker, type 2 diabetes mellitus, obstructive sleep apnea on nocturnal oxygen, lymphoma and obesity recently admitted for worsening shortness of breath over the last few days associated with chest tightness and productive cough of clear sputum. Patient presents today from [facility] with c/o generalized pain, especially chest, back and left flank. Patient morbidly obese. parachute rigger applied and NSR noted. Respirations even and non-labored. Denies sob. Abdomen large, soft, non-tender with positive bowel sounds. Positive pedal pulses noted. Original Note: Medical History Coronary artery disease Insulin dependent type 2 diabetes mellitus Exposure to rabies Lymphoma Restrictive lung disease secondary to obesity COPD (chronic obstructive pulmonary disease) Nocturnal hypoxemia DRE (obstructive sleep apnea) Cough Nicotine dependence, cigarettes, uncomplicated Allergic rhinitis Morbid obesity Hyperlipidemia GERD (gastroesophageal reflux disease) Tubular adenoma Chronic idiopathic constipation IBS (irritable bowel syndrome) Back pain Depressi
--- NOTE | 2024-08-17 16:50 | MHC.CM.ED ---
PT is recommending STR. CM met with patient with medical clinic manager, as patient is Czech speaking. Daughter/HCP Sarita Gibson ([phone]) is present. Pt is refusing STR. Daughter has paperwork for Outpatient PT/OT at [facility]. Will get appointment times on Tuesday. Pt states she will go to outpatient therapy. Daughter states she can transport her home. Pt states she can get into car and into her apartment. Pt will d/c home. Pt lives alone, daughter helps. She has [employer] MAN hours: 32 during the day and 14 hours at night from [employer].. Pt uses a cane and a walker. HCP is on file. PCP verified. Insurance verified. Provider and primary RN aware of above. Pt will dishcarge home
== END 2024-08-17 17:04 | disposition home or self-care (01) ==
PROVIDERS: Physician Assistant Medical; Emergency Provider Emergency Medicine; PCP Internal Medicine Geriatric Medicine
DX: I69.954 Hemiplegia and hemiparesis following unspecified cerebrovascular disease affecting left non-dominant side (principal); G89.4 Chronic pain syndrome; M79.651 Pain in right thigh; M54.50 Low back pain, unspecified; R07.9 Chest pain, unspecified; R51.9 Headache, unspecified; Z91.81 History of falling; Z03.818 Encounter for observation for suspected exposure to other biological agents ruled out; E11.9 Type 2 diabetes mellitus without complications; E78.5 Hyperlipidemia, unspecified; J44.9 Chronic obstructive pulmonary disease, unspecified; F17.210 Nicotine dependence, cigarettes, uncomplicated; Z79.4 Long term (current) use of insulin; Z79.899 Other long term (current) drug therapy
CPT/HCPCS: 0241U; 70450; 71046; 72100; 73552; 80053; 83735; 84484; 85025; 93005; 96374; 96376; 97161; 99285; 99291; J1171

== ENCOUNTER → 2024-08-17 10:20 | Outpatient (BNV) | payer MEDICAID, SELFPAY | PROVIDERS: Emergency Provider Emergency Medicine; PCP Internal Medicine Geriatric Medicine; Visit Provider Internal Medicine | DX: R94.31 Abnormal electrocardiogram [ECG] [EKG] (principal); R07.9 Chest pain, unspecified | CPT/HCPCS: 93010 ==

== ENCOUNTER → 2024-08-17 10:20 | Outpatient (BNV) | payer MEDICAID, SELFPAY | PROVIDERS: Emergency Provider Emergency Medicine; PCP Internal Medicine Geriatric Medicine; Visit Provider Radiology Diagnostic Radiology | DX: S09.90XA Unspecified injury of head, initial encounter (principal); M51.360 Other intervertebral disc degeneration, lumbar region with discogenic back pain only; M54.59 Other low back pain; M79.651 Pain in right thigh | CPT/HCPCS: 70450; 71046; 72100; 73552 ==

== ENCOUNTER 2024-08-21 09:46 | Outpatient (REF) | payer MEDICAID, SELFPAY ==
--- OUTSIDE RECORDS SUMMARY | 2023-11-24 09:53 | XMS_ITS | Encounter Summary ---
Author Organization [facility] Address [address] [place] [address] Care Team Providers Care Packer Dried Beef Name Role Phone Name, Kiel BAILEY Primary Care Provider [phone] Encounter Details Date Type Department Care Team (Late st Contact Info) Description 11/24/2023 9:53 AM EDT Hospital Encounter TH HISTORIC ENCOUNTERS EASTERN CONVERSION ONLY Geoffrey-Art Vitale MD [address] [place] [address] Social History Tobacco Use Types [...] 2:17 PM Encounter Date: 11/24/2023 Status: Signed Spanish Moss Picker: Art Davis MD (Physician) CHIEF COMPLAINT: Chief Complaint Patient presents with ? Follow-up Diffuse large B-cell lymphoma Stage III Completed 6 cycles of R-CHOP in July 23, 2018 IDENTIFIER:Sarita Puga is a 58 y.o. female. HPI: The patient returns for follow up of Large B-cell lymphoma. Here with her daughter , who is vincentian to citizen of [place] speech and language tutor Patient reports that she has been doing [...] accompanied by her daughter and girlfriend. As Croatian to Welsh speech and language tutor assisted with the discussion. She had a [...] Care Team (Late st Contact Info) Description 08/27/2024 9:45 AM EDT Office Visit Orthopedic Surgery - [place] [address] [phone] Wesley Garcia DPM [address] [address] documented as of this encounter Procedures Procedure [...] documented as of this encounter Care Teams Packer Dried Beef Relationship Specialty Start Date End Date Name, MD Kiel 4 [place], [place] PCP - General Internal Medicine 08/28/15 documented as of this encounter
--- NOTE | ~2024-08-21 | US_ITS ---
CLINICAL HISTORY: N20.0 - Calculus of kidney US renal with Color Doppler Comparison: Prior relevant studies were not available for comparison at the time of this interpretation Findings: Right kidney normal size and echotexture, 15.7 cm length. No hydronephrosis calculus or mass. Normal color flow. Normal renal cortical thickness. Left kidney normal size and echotexture, 14.6 cm length. No hydronephrosis calculus or mass. Normal color flow. Normal renal cortical thickness. Impression: 1. Normal renal ultrasound This document has been electronically signed by: Phil Blood MD on 08/22/2024 12:11:23
--- OUTSIDE RECORDS SUMMARY | 2024-08-21 10:36 | XMS_ITS | Encounter Summary ---
Author Organization [employer] Address [address] [place] [address] Care Team Providers Care Gem Cutter Name Role Phone Name, Kiel BAILEY Primary Care Provider [phone] Katlyn Rodriguez PharmD Unavailable [phone] Nehal Ann RN Unavailable [phone] Ania Sepncer Unavailable Encounter Details Date Type Department Care Team (Late st Contact Info) Description 05/01/2024 Telephone [facility] MEDICINE [address] [place], [place] [phone] Name, MD Kiel [address] [place], [place] [phone] Social History Tobacco Use Types Packs/Day Years [...] Care Team (Late st Contact Info) Description 08/22/2024 10:00 AM EDT Clinical Support [address] [address] 09/19/2024 9:00 AM EDT Clinical Support [address] [address] Opal Steiner, MARINA 10/02/2024 9:30 AM EDT Medication Management [address] [address] Katlyn Rodriguez, AngieD [address] [place] [address] documented as of this encounter Goals Goal Patient Goal Type Associated Problems Recent Progress Patient-Stated? Author Record your blood pressure once per day Blood Pressure No Puia, Katlyn, PharmD Blood Pressure < 140/90 Blood Pressure 124/84(2024 1:44 PM EDT) No Puia, Katlyn, PharmD Hemoglobin A1c [...] documented as of this encounter Care Teams Gem Cutter Relationship Specialty Start Date End Date Name, MD Kiel [address] [place] [address] PCP - General Family Medicine 07/15/15 Puia, Katlyn, PharmD [address] [place] [phone] Pharmacist Internal Medicine 10/08/22 Nehal Ann RN [address] [place] [phone] Registered Nurse Family Medicine 08/20/24 Ania Spencer 08/20/24 Marta Ovalle Claims Service RepresentativeWringer And Setter 05/25/23 documented as of this encounter
--- OUTSIDE RECORDS SUMMARY | 2024-08-21 10:37 | XMS_ITS | Encounter Summary ---
Author Organization [facility] Address [address] [place] [address] Care Team Providers Care Saw Edge Fuser Circular Name Role Phone Name, Kiel BAILEY Primary Care Provider [phone] Encounter Details Date Type Department Care Team Description 09/10/2022 Social Work [facility] Oncology Services [address] [place] [address] Adina Archer, [facility] Social History Tobacco Use Types Packs/Day Years [...] on filedocumented in this encounter Care Teams Saw Edge Fuser Circular Relationship Specialty Start Date End Date Name, MD Kiel [address] [place] [address] [address] [place] [address] PCP - General Internal Medicine 04/17/18 documented as of this encounter
== END 2024-08-21 09:47 | disposition home or self-care (01) ==
LOC: HO.US 09:46
PROVIDERS: PCP Internal Medicine Geriatric Medicine; Visit Provider Nurse Practitioner Family
DX: N20.0 Calculus of kidney (principal)
CPT/HCPCS: 76775

== ENCOUNTER → 2024-08-21 09:48 | Outpatient (BNV) | payer MEDICAID, SELFPAY | PROVIDERS: PCP Internal Medicine Geriatric Medicine; Visit Provider Radiology Diagnostic Radiology | DX: N20.0 Calculus of kidney (principal) | CPT/HCPCS: 76775 ==

== ENCOUNTER 2024-09-03 09:23 | Outpatient (AMB) | payer MEDICAID, SELFPAY ==
--- NOTE | 2024-09-03 09:24 | A.OFFVIS_ITS ---
Intake Visit Reasons: 6m/US(set) Intake Note: patient here for 6 mo follow up for flank pain , nephrolithiasis urology meds : VITB-6 BT: none Imaging done:08/21/24 Cytogeneticist Required: Yes Cytogeneticist Language: Insulator Apprentice Services: Cytogeneticist Present Cytogeneticist Name: cory [id number] Accompanied by: Self / Same As Patient Allergies penicillin G (Penicillin G) Allergy (Mild, Verified 09/03/24 09:49) SWELLING barium sulfate (ORAL CONTRAST) Allergy (Unknown, Verified 09/03/24 09:49) HIVES cephalexin Allergy (Unknown, Verified 09/03/24 09:49) Unknown Medication List - Last Reconciled 09/03/24 by DEMETRIUS Delgado acetaminophen ER 650 mg PO Q8H PRN albuterol sulfate 2.5 mg inhalation Q4H PRN albuterol sulfate 90 mcg/actuation (Ventolin HFA) 2 puffs inhalation Q4H PRN atorvastatin 80 mg PO BEDTIME baclofen 10 mg PO TID PRN calcium carbonate-vitamin D3 600 mg-5 mcg (200 unit) 1 tab PO BID cetirizine (Zyrtec) 10 mg PO DAILY clonidine HCl 0.1 mg PO BEDTIME ezetimibe 10 mg PO DAILY famotidine 20 mg PO BID fluticasone propion-salmeterol 115-21 mcg/actuation (Advair HFA) 2 puffs inhalation Q12H 30 days furosemide 20 mg PO DAILY gabapentin 600 mg PO TID PRN icosapent ethyl 2 grams PO BID insulin glargine (Lantus Solostar U-100 Insulin) 36 units subcut DAILY ipratropium-albuterol 20-100 mcg/actuation (Combivent Respimat) 1 puff PO Q6H lidocaine 5% 1 patch topical DAILY PRN losartan 50 mg PO DAILY meloxicam 7.5 mg PO DAILY metformin ER 500 mg PO BEDTIME metoprolol succinate ER 25 mg PO BEDTIME montelukast (Singulair) 10 mg PO BEDTIME oxcarbazepine 150 mg PO DAILY oxcarbazepine 450 mg PO BEDTIME oxycodone 10 mg PO DAILY PRN paroxetine HCl 40 mg PO BEDTIME pen needle, diabetic (Pentips Pen Needle) As directed pyridoxine (vitamin B6) 100 mg PO DAILY 90 days tirzepatide (Mounjaro) 15 mg subcut FR trazodone 100 mg PO BEDTIME PRN HPI Comments Details: Sarita is a pleasant 59-year-old Montenegrin-speaking female patient of Dr. Shaffer who was accompanied by her daughter at today's office visit. She has a past medical history of oxygen dependence, chronic idiopathic constipation, IBS, back pain, GERD, hyperlipidemia, depression, diabetes, restrictive lung disease, smoker, obstructive sleep apnea, and obesity. She presents to the office today for follow-up of her kidney male rotation and nephrolithiasis. Recent renal imaging results were reviewed with the patient today. 09/14 bilateral kidneys with no hydronephrosis, calculi, or masses. Normal renal ultrasound. She does continue to experience generalized ongoing back pain. In assessment of the patient today it appears patient with pain in the thoracic, lumbar, and sacral region. We did discuss potential causes for this generalized discomfort she is experiencing. She otherwise denies any bothersome urinary issues. She reports compliance with vitamin B6 as prescribed. She denies urinary urgency, urinary frequency, incontinence, nocturia, dysuria, foul smelling urine, changes to urinary stream, fever, and or chills. She otherwise offers no other issues or concerns at this time. [facility] Medical History Reactive airway disease Coronary artery disease Insulin dependent type 2 diabetes mellitus Exposure to rabies Lymphoma Restrictive lung disease secondary to obesity COPD (chronic obstructive pulmonary disease) Nocturnal hypoxemia DRE (obstructive sleep apnea) Cough Nicotine dependence, cigarettes, uncomplicated Allergic rhinitis Morbid obesity Hyperlipidemia GERD (gastroesophageal reflux disease) Tubular adenoma Chronic idiopathic constipation IBS (irritable bowel syndrome) Back pain Depression Surgical History History of total right knee replacement (TKR) History of appendectomy (~1978) History of (~1986) History of hysterectomy (~1995) History of lithotripsy (~2018) History of carpal tunnel surgery of right wrist (~2020) History of colonoscopy History of esophagogastroduodenoscopy (EGD) Family History Mother Diabetes Heart muscle disorder caused by another medical condition Father Diabetes Epilepsy Sister No problems noted. Sister No problems noted. Sister No problems noted. Sister No problems noted. Sister No problems noted. Brother No problems noted. Brother No problems noted. Brother No problems noted. Brother No problems noted. Brother No problems noted. Brother No problems noted. Daughter No problems noted. Daughter No problems noted. Son No problems noted. Son No problems noted. Son No problems noted. Social History Household Members: Other Household Members Other:: grandson Housing: Apartment Are you a primary elderly caregiver to a significant other at home: No Do you presently have visiting nurse or other home services: No Alcohol intake: current Alcohol intake frequency: a few times a week Patient Tobacco Use Status: Current everyday Tobacco user Tobacco use type: Cigarette Cigarette Packs Per Day: 2 Cigarettes Per Day: 40.0 Years Smoked: (onset 13yo, x 42yrs, max 2ppd, now 1/2ppd - 30PYH) e-Cigarette/Vaping Use: Never Used Second Hand Smoke Exposure: No Substance Use Type: Marijuana service: No Current occupational status: disabled Current occupation: rt handed Review of Systems Const Reports as per HPI Eyes Reports no additional complaints ENT Reports no additional complaints Card Reports as per HPI Resp Reports as per HPI GI Reports as per HPI Reports as per HPI Musc Reports as per HPI Neuro Reports no additional complaints Psych Reports no additional complaints Endo Reports as per HPI Sung/Lymph Reports no additional complaints Aller/Immun Reports no additional complaints Physical Exam Const General: cooperative, healthy appearing, comfortable, no acute distress, well developed, alert and awake Nutritional Appearance: overweight Orientation/consciousness: patient oriented x3 Limitations: language barrier HEENT Head: Yes normal to inspection, Yes normocephalic and Yes atraumatic Ears: hearing grossly normal bilaterally Eyes General: appearance normal, both eyes and all related structures Neck Neck: Yes normal visual inspection and Yes trachea midline Chest Chest palpation & inspection: normal inspection of the chest Resp Effort & Inspection: normal respiratory effort and able to speak in complete sentences Cardio Rate: regular rate GI Inspection: Yes normal to inspection General: Yes no CVA tenderness Back/Spine/Pelvis Back: no CVA tenderness Skin General skin exam: no rashes or lesions noted Neuro General: patient oriented x3 Extrem General: Yes normal to inspection Psych Appearance: grossly normal and well kempt Mental Status: mental status grossly normal Speech and movement: Normal speech and movement present and Clear speech present Affect: normal affect Attitude: cooperative Thought process: Normal thought process present Thought content: Normal thought content present Insight: Fair insight present (Psych) Judgement: Fair judgement present (Psych) Results Reviewed Results Reviewed: Date of Service: 08/21/24 Procedure(s): US renal BI US renal with Color Doppler Comparison: Prior relevant studies were not available for comparison at the time of this interpretation Findings: Right kidney normal size and echotexture, 15.7 cm length. No hydronephrosis calculus or mass. Normal color flow. Normal renal cortical thickness. Left kidney normal size and echotexture, 14.6 cm length. No hydronephrosis calculus or mass. Normal color flow. Normal renal cortical thickness. Impression: 1. Normal renal ultrasound Assessment & Plan Assessment & Plan (1) Nephrolithiasis: Code(s): N20.0 - Calculus of kidney Category: Medical (2) Flank pain: Code(s): R10.9 - Unspecified abdominal pain Category: Medical Plan Unable to obtain urine for urinalysis as patient unable to void. . Patient currently denies any bothersome urinary issues or concerns. She reports be happy with current voiding parameters. Continue vitamin B6 as discussed and prescribed. Recent renal imaging results reviewed with the patient today; as noted above. Discussed, educated, and stressed the importance of adequate hydration relation to nephrolithiasis well as overall health and well-being. Continue adding 1 oz of lemon juice to water daily. Will obtain renal ultrasound in 1 year for surveillance monitoring. Follow-up in 1 year with imaging to be completed prior; or sooner with any issues, concerns, and or questions. Orders: Orders US renal BI 1 Year N20.0 - Calculus of kidney Patient Instructions: The patient had an opportunity to ask questions regarding the treatment plan. All questions were answered. Physical exam, labs, and imaging were discussed and reviewed in detail. As well as risks, benefits, and discussion of treatment choices. No major barriers to understanding were identified. The patient expressed understanding and agreement with the above treatment plan. The patient was made aware they should contact our office by phone for worsening of their current condition, the appearance of new symptoms, or with any questions or concerns. Compliance is encouraged with any medications and follow up testing that is ordered. It is a privilege to be allowed the opportunity to participate in? your urological care.? Again, if you have any questions or concerns If you have any questions or concerns please do not hesitate to contact me. The office is [phone]. This note is constructed using voice recognition software. While every effort has been made to ensure accuracy gse mechanic errors may have been included. Yours sincerely, DEMETRIUS Delgado Coding Level of Care Code Est Pt Level 3 (69392) Complex EM visit Add On G2211 Diagnoses Nephrolithiasis N20.0 Flank pain R10.9
--- OUTSIDE RECORDS SUMMARY | 2024-09-03 09:48 | XMS_ITS | Encounter Summary ---
Author Organization [facility] Address [address] [place] [address] Care Team Providers Care Combat Engineer Name Role Phone Name, Kiel BAILEY Primary Care Provider [phone] Encounter Details Date Type Department Care Team Description 09/10/2022 Social Work [facility] Oncology Services [address] [place] [address] Adina Archer, [facility] Social History Tobacco [...] on filedocumented in this encounter Care Teams Combat Engineer Relationship Specialty Start Date End Date Name, MD Kiel [address] [place] [address] [address] [place] [address] PCP - General Internal Medicine 04/17/18 documented as of this encounter
--- OUTSIDE RECORDS SUMMARY | 2024-09-03 09:48 | XMS_ITS | Encounter Summary ---
Author Organization [employer] Address [address] [facility] [address] [place] [address] Care Team Providers Care Spooler Operator Automatic Name Role Phone Name, Kiel BAILEY Primary Care Provider Katlyn Rodriguez PharmD Unavailable [phone] Nehal Ann RN Unavailable [phone] Ania Spencer Unavailable Encounter Details Date Type Department Care Team (Late st Contact Info) Description 05/01/2024 Telephone [facility] MEDICINE [address] [place], [place] [phone] Name, MD Kiel [address] [place], [place] [phone] Social History Tobacco Use Types Packs/Day Years [...] Care Team (Late st Contact Info) Description 09/19/2024 9:00 AM EDT Clinical Support [facility] MEDICINE [address] [place] [phone] Opal Steiner, MARINA 10/02/2024 9:30 AM EDT Medication Management [facility] MEDICINE [address] [place] [phone] Katlyn Rodriguez PharmD [address] [place] [address] documented as of this encounter Goals Goal [...] documented as of this encounter Care Teams Spooler Operator Automatic Relationship Specialty Start Date End Date Name, MD Kiel [address] [place] [address] PCP - General Family Medicine 07/15/15 Puia, Katlyn, PharmD [address] [place] [address] Pharmacist Internal Medicine 10/08/22 Nehal Ann RN [address] [place] [id number] Registered Nurse Family Medicine 08/20/24 Ania Spencer 08/20/24 Marta Ovalle Technology LeadOpen Developer Operator 05/25/23 documented as of this encounter
== END 2024-09-03 09:50 | disposition home or self-care (01) ==
LOC: HO.HUSH 09:24
PROVIDERS: PCP Internal Medicine Geriatric Medicine; Visit Provider Nurse Practitioner Family
DX: N20.0 Calculus of kidney (principal); R10.9 Unspecified abdominal pain
CPT/HCPCS: 99213

== ENCOUNTER → 2024-09-03 09:23 | Outpatient (BNVA) | payer MEDICAID, SELFPAY | PROVIDERS: PCP Internal Medicine Geriatric Medicine; Visit Provider Nurse Practitioner Family | DX: N20.0 Calculus of kidney (principal); R10.9 Unspecified abdominal pain | CPT/HCPCS: 99212 ==

== ENCOUNTER 2024-09-13 14:29 | Outpatient (AMB) | payer MEDICAID, SELFPAY ==
--- OUTSIDE RECORDS SUMMARY | 2023-11-24 09:53 | XMS_ITS | Encounter Summary ---
Author Organization [facility] Address [address] [place] [address] Care Team Providers Care Combat Control Name Role Phone Name, Kiel BAILEY Primary Care Provider [phone] Encounter Details Date Type Department Care Team (Late st Contact Info) Description 11/24/2023 9:53 AM EDT Hospital Encounter TH HISTORIC ENCOUNTERS EASTERN CONVERSION ONLY Geoffrey-Art Vitale MD [address] [place] [address] Social History Tobacco Use Types Packs/Day Years Used Date Smoking Tobacco: Every Day Cigarettes Last attempted to quit: 08/22/2014 Smokeless Tobacco: Never Alcohol Use Standard Drinks/Week Comments No 0 (1 standard drink = 0.6 oz pur e alcohol) Interpersonal Safety Answer Date Record ed Physical Abuse 02/05/2024 Verbal Abuse 02/05/2024 Comments Unknown Sex and Gender Information [...] 9:20 AM EDT documented in this encounter Progress Notes * Art Son MD - 11/24/2023 10:30 AM EDT Images from the original note were not included. Progress Notes by Art Davis MD at 11/24/2023 10:30 AM Author: Art Davis MD Service: -- Author Type: Physician Filed: 11/24/2023 2:17 PM Encounter Date: 11/24/2023 Status: Signed Grain Broker: Art Davis MD (Physician) CHIEF COMPLAINT: Chief Complaint Patient presents with ? Follow-up Diffuse large B-cell lymphoma Stage III Completed 6 cycles of R-CHOP in July 23, 2018 IDENTIFIER:Sarita Puga is a 58 y.o. female. HPI: The patient returns for follow up of Large B-cell lymphoma. Here with her daughter , who is togolese to albanian foreign language interpreter Patient reports that she has been [...] accompanied by her daughter and girlfriend. As Divehi to Korean foreign language interpreter assisted with the discussion. She had [...] studies, reviewed and interpreted CT Brain W WO - 03/02/19 - 1037 CLINICAL HISTORY: Headache [...] agrees Health Care Proxy--is her daughter Art aDvis MD Cc Name, MD Kiel Cc Dr. [place] BRUNER documented in this encounter Plan of Treatment Upcoming Encounters Date Type Department Care Team (Late st Contact Info) Description 11/27/2024 9:45 AM EDT Office Visit Orthopedic Surgery - [place] [address] [phone] Wesley Garcia DPM [address] [phone] documented as of this encounter Procedures Procedure [...] documented as of this encounter Care Teams Combat Control Relationship Specialty Start Date End Date Name, MD Kiel [address] [place], [place] PCP - General Internal Medicine 08/28/15 documented as of this encounter
--- OUTSIDE RECORDS SUMMARY | 2024-09-13 14:38 | XMS_ITS | Encounter Summary ---
Author Organization [facility] Address [address] [place] [address] Care Team Providers Care Clerk Analyst Name Role Phone Name, Kiel BAILEY Primary Care Provider [phone] Encounter Details Date Type Department Care Team Description 09/10/2022 Social Work [facility] Oncology Services [address] [place] [address] Adina Archer, [facility] Social History Tobacco Use Types Packs/Day Years [...] on filedocumented in this encounter Care Teams Clerk Analyst Relationship Specialty Start Date End Date Name, MD Kiel [address] [place] [address] [address] [place] [address] PCP - General Internal Medicine 04/17/18 documented as of this encounter
--- OUTSIDE RECORDS SUMMARY | 2024-09-13 14:38 | XMS_ITS | Clinical Summary ---
Author Organization [facility] Address [address] [place] [address] [place] [phone] Phone Care Team Providers Care Director Pharmacy Services Name Role Phone Unavailable Primary Care Provider Unavailabl e Social History Tobacco Use Types Packs/Day Years Used Date Smoking Tobacco: Never Assessed Education Answer Date Recorded Are you interested in more education? Not on naman e 06/18/2022 Are you concerned about learning? Not on file 06/18/2022 No 06/18/2022 No 06/18/2022 Digital Access Answer Date Recorded No 07/20/2022 No 07/20/2022 Reliable internet access at home? Not on file 07/20/2022 Device with a working camera? Not on file Comments Unknown Sex and Gender Information Value Date Recorded Sex Assigned at Not on file Legal Sex Female 3:20 PM EST Gender Identity Not on file Sexual Orientation Not on file Plan of Treatment Not on file Medical Devices Not on file Insurance [employer] [place] [address] [place] [address] [place] [address] [place] [address] [place] [address] [place] [address] [place] [address] [place] [address] [employer] Additional Source Comments The information contained in this document represents components of the legal health record. It is not the complete legal health record.[facility]
--- OUTSIDE RECORDS SUMMARY | 2024-09-13 14:38 | XMS_ITS | Encounter Summary ---
Author Organization [employer] Address [address] [facility] [address] [place] [address] Care Team Providers Care Chief Of Internal Medicine Name Role Phone Name, Kiel BAILEY Primary Care Provider [phone] Katlyn Rodriguez PharmD Unavailable [phone] Nehal Ann RN Unavailable [phone] Ania Spencer Unavailable Encounter Details Date Type Department Care Team (Late st Contact Info) Description 05/01/2024 Telephone [facility] MEDICINE [address] [place], [place] [phone] Name, MD Kiel [address] [place], [place] [phone] Social History Tobacco Use Types Packs/Day Years [...] Description 09/19/2024 9:00 AM EDT Clinical Support [facility] MEDICINE [address] [place] [phone] Opal Steiner, MARINA 10/02/2024 9:30 AM EDT Medication Management [facility] MEDICINE [address] [place] [phone] Katlyn Rodriguez PharmD [address] [place] [address] documented as of this encounter Goals Goal Patient Goal Type Associated Problems Recent Progress Patient-Stated? Author Record your blood pressure once per day Blood Pressure No Katlyn Rodriguez PharmD Blood Pressure < 140/90 Blood Pressure 136/100(09/05 10:37 AM EDT) No Puia, Katlyn, PharmD Hemoglobin [...] documented as of this encounter Care Teams Chief Of Internal Medicine Relationship Specialty Start Date End Date Name, MD Kiel [address] [place] [address] PCP - General Family Medicine 07/15/15 Puia, Katlyn, PharmD [address] [place] [address] Pharmacist Internal Medicine 10/08/22 Nehal Ann RN [address] [place] [id number] Registered Nurse Family Medicine 08/20/24 Ania Spencer 08/20/24 Marta Ovalle Cnc Router OperatorNurse Gynecology 05/25/23 documented as of this encounter
--- NOTE | 2024-09-13 14:59 | MHC.OFFVIS ---
Intake Visit Reasons: Brain Lesion Allergies penicillin G (Penicillin G) Allergy (Mild, Verified 09/03/24 09:49) SWELLING barium sulfate (ORAL CONTRAST) Allergy (Unknown, Verified 09/03/24 09:49) HIVES cephalexin Allergy (Unknown, Verified 09/03/24 09:49) Unknown HPI Comments Details: 59 y/o RH woman with obesity, IDDM, DRE on CPAP, OA, HTN and diffuse B cell lymphoma with seizure like episodes and mildly abnormal EEG. She came to emergency room at [facility] in May of 2024 is severe headache and her brain MRI revealed a right cerebellar peduncle area lesion suggestive of either a mass or stroke. She was initially treated with steroids. MRI was repeated after few days which revealed some resolution of that lesion. Now she was much better but still has some left sided weakness and difficulty speaking. [facility] Medical History (Updated 09/13/24 @ 15:13 by Marcia Villaseñor MD) Diabetes mellitus Brain lesion Reactive airway disease Coronary artery disease Insulin dependent type 2 diabetes mellitus Exposure to rabies Lymphoma Restrictive lung disease secondary to obesity COPD (chronic obstructive pulmonary disease) Nocturnal hypoxemia DRE (obstructive sleep apnea) Cough Nicotine dependence, cigarettes, uncomplicated Allergic rhinitis Morbid obesity Hyperlipidemia GERD (gastroesophageal reflux disease) Tubular adenoma Chronic idiopathic constipation IBS (irritable bowel syndrome) Back pain Depression Surgical History History of total right knee replacement (TKR) History of appendectomy (~1978) History of (~1986) History of hysterectomy (~1995) History of lithotripsy (~2018) History of carpal tunnel surgery of right wrist (~2020) History of colonoscopy History of esophagogastroduodenoscopy (EGD) Family History Mother Diabetes Heart muscle disorder caused by another medical condition Father Diabetes Epilepsy Sister No problems noted. Sister No problems noted. Sister No problems noted. Sister No problems noted. Sister No problems noted. Brother No problems noted. Brother No problems noted. Brother No problems noted. Brother No problems noted. Brother No problems noted. Brother No problems noted. Daughter No problems noted. Daughter No problems noted. Son No problems noted. Son No problems noted. Son No problems noted. Social History Household Members: Other Household Members Other:: grandson Housing: Apartment Are you a primary healthcare manager to a significant other at home: No Do you presently have visiting nurse or other home services: No Alcohol intake: current Alcohol intake frequency: a few times a week Patient Tobacco Use Status: Current everyday Tobacco user Tobacco use type: Cigarette Cigarette Packs Per Day: 2 Cigarettes Per Day: 40.0 Years Smoked: (onset 13yo, x 42yrs, max 2ppd, now 1/2ppd - 30PYH) e-Cigarette/Vaping Use: Never Used Second Hand Smoke Exposure: No Substance Use Type: Marijuana service: No Current occupational status: disabled Current occupation: rt handed Review of Systems Const Details: Constitutional:?No fever, chills, fatigue, weight loss, or night sweats. HEENT:?No headache, vision changes, hearing loss, nasal congestion, sore throat. Neurological:?No dizziness, syncope, seizures, numbness, tingling, weakness, tremors, memory loss. Psychiatric:?No anxiety, depression, mood swings, sleep disturbance, or hallucinations. Endocrine:?No heat/cold intolerance, polydipsia, polyuria, or hair/skin changes. Hematologic/Lymphatic:?No easy bruising, bleeding, or lymphadenopathy. Integumentary (Skin):?No rash, lesions, itching, or color changes. ? Physical Exam Neuro Other: Mental Status: Alert and oriented to person, place, and time. Normal attention. Cranial Nerves: CN II: Visual knight full to confrontation, visual acuity intact. CN III, IV, : Pupils equal, round, reactive to light and accommodation. Extraocular movements are normal. CN V: Facial sensation is normal. CN VII: Facial movements symmetrical. CN VIII: Hearing intact to bedside conversation is normal. CN IX, X: Palate elevates symmetrically. CN XI: Shoulder shrug and head turn symmetrical. CN XII: Tongue midline without atrophy or fasciculations. Mild left hemiparesis, arm more than leg Extrapyramidal: Full facial expressions and blinking. No rigidity. Movements are appropriate with no tremor or abnormality. Speech: Mild dysarthria Assessment & Plan Assessment & Plan (1) Seizure disorder: Comment: Amb EEG at [facility] in Feb 2018: WNL EEG at office in 2018: generalized theta bursts Code(s): G40.909 - Epilepsy, unspecified, not intractable, without status epilepticus Category: Medical (2) DRE (obstructive sleep apnea): Comment: PSG at [facility] in 2017: TST RDI 39, REM RDI 102. CPAP nasal mask M 7cm pressure rec. Apparently, not able to tolerate CPAP Code(s): G47.33 - Obstructive sleep apnea (adult) (pediatric) Category: Medical (3) Migraine: Code(s): G43.909 - Migraine, unspecified, not intractable, without status migrainosus Category: Medical Qualifiers: Migraine type: migraine (< 15 days per month) without aura Status migrainosus presence: without status migrainosus Intractability: not intractable Qualified Code(s): G43.009 - Migraine without aura, not intractable, without status migrainosus (4) Cerebral infarction: Comment: MRI brain WWO at [facility] in June 2024: Resolving lesion, probably resolving stroke MRI brain WWO at [facility] in May 2024: R cerebral pedunclar enhancing lesion CT brain WO at [facility] in Nov 2017: WNL Code(s): I63.9 - Cerebral infarction, unspecified Category: Medical Qualifiers: Cerebral infarction mechanism: thrombosis Precerebral and cerebral artery: middle cerebral artery Laterality of affected vessel: right Qualified Code(s): I63.311 - Cerebral infarction due to thrombosis of right middle cerebral artery Plan Impression: 1. Right cerebral peduncle resolving ischemic hemorrhagic infarction, which initially look like a tumor and was treated with steroids. Now she was doing much better and recent head CT has revealed significant resolution of that lesion. 2. Obstructive sleep apnea while she was not able to use CPAP 3. Previous suspicion of seizure disorder though it was not confirmed Recommendation: 1. Continue walking and physical activity to strength and left side. She is already getting physical and occupational therapy 2. Control of vascular risk factors including baby aspirin daily Coding Level of Care Code Est Pt Level 4 (12266) Diagnoses Seizure disorder G40.909 DRE (obstructive sleep apnea) G47.33 Migraine without aura and without status migrainosus, not intractable G43.009 Migraine type: migraine (< 15 days per month) without aura Status migrainosus presence: without status migrainosus Intractability: not intractable Cerebral infarction due to thrombosis of right middle cerebral artery I63.311 Cerebral infarction mechanism: thrombosis Precerebral and cerebral artery: middle cerebral artery Laterality of affected vessel: right
== END 2024-09-13 15:17 | disposition home or self-care (01) ==
LOC: HO.HSM 14:30
PROVIDERS: PCP Internal Medicine Geriatric Medicine; Visit Provider Psychiatry & Neurology Neurology
DX: G40.909 Epilepsy, unspecified, not intractable, without status epilepticus (principal); G47.33 Obstructive sleep apnea (adult) (pediatric); G43.009 Migraine without aura, not intractable, without status migrainosus; I63.311 Cerebral infarction due to thrombosis of right middle cerebral artery
CPT/HCPCS: 99214

== ENCOUNTER → 2024-09-13 14:29 | Outpatient (BNVA) | payer MEDICAID, SELFPAY | PROVIDERS: PCP Internal Medicine Geriatric Medicine; Visit Provider Psychiatry & Neurology Neurology | DX: G40.909 Epilepsy, unspecified, not intractable, without status epilepticus (principal); G47.33 Obstructive sleep apnea (adult) (pediatric); G43.009 Migraine without aura, not intractable, without status migrainosus; I63.311 Cerebral infarction due to thrombosis of right middle cerebral artery; C83.3A Diffuse large B-cell lymphoma, in remission; R94.01 Abnormal electroencephalogram [EEG]; Z99.89 Dependence on other enabling machines and devices | CPT/HCPCS: 99212 ==

== ENCOUNTER 2024-10-03 11:26 | Outpatient (AMB) | payer MEDICAID, SELFPAY ==
--- OUTSIDE RECORDS SUMMARY | 2023-11-24 09:53 | XMS_ITS | Encounter Summary ---
Author Organization [facility] Address [address] [place] [address] Care Team Providers Care Robotic Welding Operator Name Role Phone Name, Kiel BAILEY Primary Care Provider [phone] Encounter Details Date Type Department Care Team (Late st Contact Info) Description 11/24/2023 9:53 AM EDT Hospital Encounter TH HISTORIC ENCOUNTERS EASTERN CONVERSION ONLY Geoffrey-Art Vitale MD [address] [place] [address] Social History Tobacco Use Types [...] 2:17 PM Encounter Date: 11/24/2023 Status: Signed Logistics Administrator: Art Davis MD (Physician) CHIEF COMPLAINT: Chief Complaint Patient presents with ? Follow-up Diffuse large B-cell lymphoma Stage III Completed 6 cycles of R-CHOP in July 23, 2018 IDENTIFIER:Sarita Puga is a 58 y.o. female. HPI: The patient returns for follow up of Large B-cell lymphoma. Here with her daughter , who is italian to arabic commercial electrician Patient reports that she has been doing [...] accompanied by her daughter and girlfriend. As Indonesian to Chinese commercial electrician assisted with the discussion. She had a [...] AM EDT Office Visit Orthopedic Surgery - [place] [address] [phone] Wesley Garcia DPM [address] [address] documented as of this encounter Procedures Procedure [...] documented as of this encounter Care Teams Robotic Welding Operator Relationship Specialty Start Date End Date Name, MD Kiel 4 [place], [place] PCP - General Internal Medicine 08/28/15 documented as of this encounter
--- OUTSIDE RECORDS SUMMARY | 2024-10-02 10:40 | XMS_ITS | Encounter Summary ---
Author Organization [employer] Address [address] [facility] [address] [place] [address] Care Team Providers Care Copper Flotation Operator Name Role Phone Name, Kiel BAILEY Primary Care Provider Katlyn Rodriguez PharmD Unavailable [phone] Nehal Ann RN Unavailable [phone] Ania Spencer Unavailable Reason for Visit * Reason Comments Ear Itching Encounter Details Date Type Department Care Team (Late st Contact Info) Description 10/02/2024 10:40 AM EDT Office Visit [facility] [address], [place] [id number] Victorino Graves MD [address], [place] [id number] Acute otitis externa of left ear, unspecified type (Primary Dx) Social History Tobacco Use Types Packs/Day Years Used Date Smoking Tobacco: Every Day Cigarettes Passive Smoke Exposure: Past Smokeless Tobacco: Never Alcohol Use Standard Drinks/Week Comments Yes 2 (1 standard drink = 0.6 oz pur e alcohol) Events/ Holidays Depression Answer Date Recorded Patient Health Questionnaire-9 Score 7 09/04/2024 Patient Health Questionnaire-9 Score 7 09/04/2024 Last PHQ-9: Questionnaire Data Not on file 0 09/04/2024 Housing Stability Answer Date Recorded What is your housing situation today? I have shirin jackson 09/02/[address] you li ve. Do you have problems with any of the following? None of the above 09/02/2023 Food Insecurity Answer Date Recorded Within the past 12 months, y ou worried that your food would run out before you got money to buy more: Sometimes True 2024 Within the past 12 months,th e food you bought just didn't last and you didn't have enough money to get more: Sometimes True 2024 Transportation Answer Date Recorded In the past 12 months, has l ack of transportation kept you from medical appts, meetings, work or from getting things needed for daily living? No 09/02/2023 Utilities Answer Date Recorded In the past 12 months, has t he [employer], gas, oil or water company threatened to shut off services in your home? No 09/02/2023 Depression Answer Date Recorded Patient Health Questionnaire-2 Score 2 09/04/2024 Internet Access Answer Date Recorded Internet Access [...] Sign Reading Time Taken Comments Blood Pressure 117/73 10/02/2024 10:39 AM EDT Pulse 63 10/02/2024 10:39 AM EDT Temperature 36.7 C (98 F) 10/02/2024 10:39 AM EDT Respiratory Rate 18 10/02/2024 10:39 AM EDT Oxygen Saturation 95% 10/02/2024 10:39 AM EDT Inhaled Oxygen Concentration - - Weight 106 kg (234 lb) 10/02/2024 10:39 AM EDT Height - - Body Mass Index 41.45 09/05/2024 10:37 AM EDT documented in this encounter Progress Notes * Victorino Graves MD - 10/02/2024 10:40 AM EDT Subjective Patient ID: Sarita Puga is a 59 y.o. female. HPI Refrigeration Person: Daughter Sarita has a 1 week history of itchy left ear with no hearing loss, drainage, or Q-tip use. Denies fever, chills, cough, shortness of breath. Lives with 23 yo grandson. Not employed. Smokes 1/2 PPD. Taking Chantix. Patient Active Problem List Diagnosis Date Noted Non-recurrent acute suppurative otitis media of left ear without spontaneous rupture of tympanic membrane 09/03/2024 Long-term current use of opiate analgesic 08/20/2024 Other chest pain 08/17/2024 Hemiparesis of left dominant side ([facility] 08/11/2024 Cerebrovascular accident (CVA) ([facility]) 08/11/2024 History of stroke 07/30/2024 Cerebellar mass 06/28/2024 Chronic, continuous use of opioids 11/29/2023 Chronic pain syndrome 05/03/2023 Health care maintenance 04/06/2023 Urinary incontinence in female 04/06/2023 Type 2 diabetes mellitus with other specified complication ([facility]) 04/06/2023 Chronic obstructive pulmonary disease, unspecified ([facility]) 03/24/2023 Carpal tunnel syndrome 01/29/2022 S/P TKR (total knee replacement), right 11/03/2021 Tubular adenoma 05/12/2021 Gait instability 02/05/2019 Memory deficit 02/05/2019 On home oxygen therapy 02/05/2019 Chronic intractable headache 02/05/2019 Anxiety 05/05/2018 B-cell lymphoma ([facility]) 04/17/2018 Hemorrhoids 08/02/2017 Migraine 05/30/2017 Osteoarthritis of knee 10/20/2016 Essential hypertension 08/05/2015 H/O: hysterectomy 08/05/2015 Knee pain 08/05/2015 Lipoma of abdominal wall 11/02/2011 Obstructive sleep apnea syndrome 01/19/2011 Cocaine abuse, episodic use ([facility]) 06/17/2010 Depression 06/05/2009 Hypertriglyceridemia 06/05/2009 Severe obesity ([facility]) 06/05/2009 Tobacco use disorder 06/05/2009 The following portions of the chart were reviewed this encounter and updated as appropriate: Tobacco Allergies Meds Problems Med Hx Surg Hx Fam Hx Review of Systems Constitutional: Negative for fever. Respiratory: Negative for shortness of breath. Cardiovascular: Negative for chest pain. Gastrointestinal: Negative for abdominal pain. Skin: Negative for rash. Neurological: Negative for headaches. Objective Physical Exam Constitutional: Appearance: Normal appearance. HENT: Right Ear: Tympanic membrane, ear canal and external ear normal. Left Ear: Tympanic membrane and external ear normal. Ears: Comments: Moderate amount of cerumen in left ear canal. Ear canal is tender when examined. Nose: Nose normal. Eyes: Conjunctiva/sclera: Conjunctivae normal. Pupils: Pupils are equal, round, and reactive to light. Cardiovascular: Rate and Rhythm: Normal rate and regular rhythm. Heart sounds: No murmur heard. Pulmonary: Effort: Pulmonary effort is normal. Breath sounds: Normal breath sounds. Musculoskeletal: General: Normal range of motion. Cervical back: No tenderness. Skin: Findings: No rash. Neurological: Mental Status: She is alert. Gait: Gait is intact. Psychiatric: Mood and Affect: Mood normal. Behavior: Behavior normal. Procedures Assessment/Plan Diagnoses and all orders for this visit: Acute otitis externa of left ear, unspecified type RN irrigated left ear with warm water. Prescribed Cipro HC eardrops. Return to clinic if not improving. Other orders - ciprofloxacin-hydrocortisone (Cipro HC Otic) otic suspension; Administer 3 drops into each ear 2 times daily for 7 days. documented in this encounter Plan of Treatment Upcoming Encounters Date Type Department Care Team (Late st Contact Info) Description 10/09/2024 10:00 AM EDT Clinical Support [address] [address] 10/29/2024 9:30 AM EDT Medication Management [address] [address] Katlyn Rodriguez PharmD [address] [place] [id number] 11/15/2024 11:30 AM EDT Clinical Support [address] [address] Opal Steiner RN documented as of this encounter Goals Goal Patient Goal Type Associated Problems Recent Progress Patient-Stated? Author Record your blood pressure once per day Blood Pressure No Puia, Katlyn, PharmD Blood Pressure < 140/90 Blood Pressure 117/73(2024 10:39 AM EDT) No PuiaReidKatlyn, PharmD Hemoglobin A1c < 7 Result Component 7.5(08/12/202 5 11:12 AM EDT) No Katlyn Rodriguez, PharmD Record your blood sugar as directed Result Component No Katlyn Rodriguez, PharmD documented as of this encounter Visit Diagnoses Diagnosis Acute otitis externa of left ear, unspecified type- Primary documented in this encounter Additional Health Concerns Assessment Noted Time PHQ-9 Depression Total Score: 7 09/05/19 25 11:46 AM EDT documented as of this encounter Care Teams Copper Flotation Operator Relationship Specialty Start Date End Date Name, MD Kiel [address] [place] [id number] PCP - General Family Medicine 07/15/15 Katlyn Rodriguez, PharmD [address] [place] [phone] Pharmacist Internal Medicine 10/08/22 Nehal Ann RN [address] [place] [id number] Registered Nurse Family Medicine 08/20/24 Ania Spencer 08/20/24 Marta Ovalle Scheduling CoordinatorLog Roller 05/25/23 documented as of this encounter
--- NOTE | 2024-10-03 11:45 | MHC.OFFVIS ---
Vital Signs 10/03/24 11:46 Height 5 ft 3 in Weight 234 lb 12.677 oz BMI 41.6 BP 120/74 Blood Pressure Location Rt brachial Position Sitting Pulse 76 Pulse Source Pulse Oximeter Pulse Oximetry (%) 9 L Oxygen Delivery Method Room Air Intake Visit Reasons: Asthma Intake Note: pt is here for follow up and states she is feeling good, and using oxygen at night. Child Care Group Leader Required: No Allergies penicillin G (Penicillin G) Allergy (Mild, Verified 10/03/24 12:06) SWELLING barium sulfate (ORAL CONTRAST) Allergy (Unknown, Verified 10/03/24 12:06) HIVES cephalexin Allergy (Unknown, Verified 10/03/24 12:06) Unknown Medication List - Last Reconciled 10/03/24 by Caryl Churchill MD acetaminophen ER 650 mg PO Q8H PRN albuterol sulfate 2.5 mg inhalation Q4H PRN albuterol sulfate 90 mcg/actuation (Ventolin HFA) 2 puffs inhalation Q4H PRN atorvastatin 80 mg PO BEDTIME baclofen 10 mg PO TID PRN calcium carbonate-vitamin D3 600 mg-5 mcg (200 unit) 1 tab PO BID cetirizine (Zyrtec) 10 mg PO DAILY clonidine HCl 0.1 mg PO BEDTIME ezetimibe 10 mg PO DAILY famotidine 20 mg PO BID fluticasone propion-salmeterol 115-21 mcg/actuation (Advair HFA) 2 puffs inhalation Q12H 30 days furosemide 20 mg PO DAILY gabapentin 600 mg PO TID PRN icosapent ethyl 2 grams PO BID insulin glargine (Lantus Solostar U-100 Insulin) 36 units subcut DAILY ipratropium-albuterol 20-100 mcg/actuation (Combivent Respimat) 1 puff PO Q6H lidocaine 5% 1 patch topical DAILY PRN losartan 50 mg PO DAILY meloxicam 7.5 mg PO DAILY metformin ER 500 mg PO BEDTIME metoprolol succinate ER 25 mg PO BEDTIME montelukast (Singulair) 10 mg PO BEDTIME oxcarbazepine 150 mg PO DAILY oxcarbazepine 450 mg PO BEDTIME oxycodone 10 mg PO DAILY PRN paroxetine HCl 40 mg PO BEDTIME pen needle, diabetic (Pentips Pen Needle) As directed pyridoxine (vitamin B6) 100 mg PO DAILY 90 days tirzepatide (Mounjaro) 15 mg subcut FR trazodone 100 mg PO BEDTIME PRN Do you need a note to return to daycare/school/sports/work: No HPI HPI Asthma: Details: SHITAL IS 59 YEARS OLD FEMALE WITH MORBID OBESITY. SHE DOES HAVE HISTORY OF OBSTRUCTIVE SLEEP APNEA BUT COULD NOT USE THE CPAP. NOCTURNAL HYPOVENTILATION AND HYPOXEMIA SHE IS ON OXYGEN 2 L/MINUTE DURING THE NIGHT. WEIGHT UNCHANGED CONTINUES TO SMOKE 2 PACK A DAY, HAS TRIED EVERY MEANS AND NICOTINE PRODUCTS IN THE PAST WITHOUT ANY SUCCESS. COMPLAINS OF MILD INTERMITTENT COUGH. MILD TO MODERATE SHORTNESS OF BREATH ON EXERTION. BUT HAS HAD NO ACUTE EPISODES OF RESPIRATORY DISTRESS. ALSO NO ACUTE RESPIRATORY INFECTION. [facility]LY [facility] Medical History (Updated 10/03/24 @ 12:15 by Caryl Churchill MD) COPD (chronic obstructive pulmonary disease) Diabetes mellitus Brain lesion Reactive airway disease Coronary artery disease Insulin dependent type 2 diabetes mellitus Exposure to rabies Lymphoma Restrictive lung disease secondary to obesity Nocturnal hypoxemia DRE (obstructive sleep apnea) Cough Nicotine dependence, cigarettes, uncomplicated Allergic rhinitis Morbid obesity Hyperlipidemia GERD (gastroesophageal reflux disease) Tubular adenoma Chronic idiopathic constipation IBS (irritable bowel syndrome) Back pain Depression Surgical History History of total right knee replacement (TKR) History of appendectomy (~1978) History of (~1986) History of hysterectomy (~1995) History of lithotripsy (~2018) History of carpal tunnel surgery of right wrist (~2020) History of colonoscopy History of esophagogastroduodenoscopy (EGD) Family History Mother Diabetes Heart muscle disorder caused by another medical condition Father Diabetes Epilepsy Sister No problems noted. Sister No problems noted. Sister No problems noted. Sister No problems noted. Sister No problems noted. Brother No problems noted. Brother No problems noted. Brother No problems noted. Brother No problems noted. Brother No problems noted. Brother No problems noted. Daughter No problems noted. Daughter No problems noted. Son No problems noted. Son No problems noted. Son No problems noted. Social History Household Members: Other Household Members Other:: grandson Housing: Apartment Are you a primary family day carer to a significant other at home: No Do you presently have visiting nurse or other home services: No Alcohol intake: current Alcohol intake frequency: a few times a week Patient Tobacco Use Status: Current everyday Tobacco user Tobacco use type: Cigarette Cigarette Packs Per Day: 2 Cigarettes Per Day: 40.0 Years Smoked: (onset 13yo, x 42yrs, max 2ppd, now 1/2ppd - 30PYH) e-Cigarette/Vaping Use: Never Used Second Hand Smoke Exposure: No Substance Use Type: Marijuana service: No Current occupational status: disabled Current occupation: rt handed Review of Systems Const All systems reviewed & are unremarkable except as noted in HPI and below Eyes Reports no additional complaints ENT Reports no additional complaints and Reports nasal congestion (Mild intermittent) Card Denies chest pain, Denies irregular heart rhythm and Denies leg edema Resp Reports as per HPI GI Reports constipation Reports no additional complaints Musc Reports back pain Skin/Breast Reports system reviewed and no additional complaints, except as documented Neuro Reports no additional complaints Psych Reports no additional complaints Physical Exam Vital Signs: Last Vital Signs Pulse 76 10/03/24 11:46 BP 120/74 10/03/24 11:46 Pulse Ox 9 L 10/03/24 11:46 Oxygen Delivery Method Room Air 10/03/24 11:46 BMI result Body Mass Index 41.6 Const General: comfortable, no acute distress, alert and awake Orientation/consciousness: patient oriented x3 HEENT Head: Yes normal to inspection General nose exam: No nasal polyps present, No nasal discharge present and Other nasal findings present (She has active nasal congestion on both sides) Face and sinus: Yes sinuses nontender Mouth: oropharynx normal Throat: Yes posterior oropharynx normal Eyes General: appearance normal, both eyes and all related structures Neck Neck: Yes normal visual inspection, Yes no lymphadenopathy, Yes trachea midline and Yes no JVD Thyroid: Thyroid normal Chest Chest palpation & inspection: normal inspection of the chest, normal palpation of entire chest wall and no tenderness Resp Other: Percussion note resonant, breath sounds are distant, especially decreased over the basilar areas, with prolonged expiratory phase . However the lungs are clear on both sides and I did not hear any wheezes or crepitations. Cardio Palpation: normal PMI Rate: regular rate Rhythm: regular rhythm Heart sounds: no gallops and no murmurs GI Palpation (GI): Soft to palpation, nontender, No hepatosplenomegaly present, no masses and Other GI palpation findings present (Abdomen is moderately obese) Auscultation: normal bowel sounds Back/Spine/Pelvis Thoracic/Lumbar Spine: thoracic and lumbar spine normal to inspection and thoraco-lumbar ROM limited Skin General skin exam: no rashes or lesions noted Neuro General: patient oriented x3 and no focal motor deficits Cranial nerves: Yes CN's II-XII intact bilaterally Extrem General: Yes normal to inspection, Yes no clubbing, cyanosis or edema and Yes no calf tenderness Right lower extremity: joint enlargement noted (Right knee moderately enlarged and tender) Psych Appearance: grossly normal and well kempt Mental Status: mental status grossly normal Speech and movement: Normal speech and movement present Assessment & Plan Assessment & Plan (1) Morbid obesity: Comment: REMAINS GROSSLY OBESE, SHE IS NOT IN ANY REGULAR WEIGHT MANAGEMENT PROGRAM. WEIGHT HAS REMAINED UNCHANGED. Code(s): E66.01 - Morbid (severe) obesity due to excess calories Category: Medical Plan: AGAIN DISCUSSED ABOUT THE WEIGHT AND NEED TO CUT DOWN THE CALORIES INTAKE. SHE DOES NEED TO HAVE EXERCISE PROGRAM BUT SHE WILL NOT BE ABLE TO COMPLY WITH IT SHE IS NOT ABLE TO JOIN ANY WEIGHT MANAGEMENT PROGRAM. SO IN REALITY I DO NOT EXPECT THAT SHE WOULD LOSE ANY WEIGHT. (2) Restrictive lung disease secondary to obesity: Comment: Restrictive component is secondary to her morbid obesity. Code(s): J98.4 - Other disorders of lung; E66.9 - Obesity, unspecified Category: Medical Plan: GAIN WEIGHT REDUCTION IS NEEDED BUT SHE WILL NOT BE ABLE TO DO IT. SHE IS ADVISED TO DO DEEP BREATHING EXERCISES 3 TO 4 TIMES A DAY. (3) COPD (chronic obstructive pulmonary disease): Comment: (COPD related to Smoking) has remained unchanged, continues to have some cough and shortness of breath on exertion. Continues to smoke and the cough is mainly due to smoking. IS CURRENTLY SMOKING ABOUT 2 PACK PER DAY Code(s): J44.9 - Chronic obstructive pulmonary disease, unspecified Category: Medical Plan: Continue Advair HFA 115-212 puffs b.i.d. regularly Combivent Respimat 1 inhalation b.i.d. Albuterol HFA 2 puffs Q 4-6 hours or albuterol 2.5 mg in nebulizer Q 4-6 hours p.r.n.. (4) DRE (obstructive sleep apnea): Comment: [place] at [facility] [place]: TST RDI 39, REM RDI 102. CPAP nasal mask M 7cm pressure rec. But she was not able to tolerate the CPAP. Claims that she sleeps okay. Code(s): G47.33 - Obstructive sleep apnea (adult) (pediatric) Category: Medical Plan: For nocturnal hypoxemia due to nocturnal hypoventilation she is using O2 2 L/minute at night Coding Level of Care Code Est Pt Level 4 (68037) Diagnoses Morbid obesity E66.01 Restrictive lung disease secondary to obesity J98.4; E66.9 COPD (chronic obstructive pulmonary disease) J44.9 DRE (obstructive sleep apnea) G47.33
[2024-10-03 11:46] VITALS: BP 120/74; PULSE 76; O2SAT 9; BMI 41.6
--- OUTSIDE RECORDS SUMMARY | 2024-10-03 12:23 | XMS_ITS | Encounter Summary ---
Author Organization [facility] Address [address] [place] [address] Care Team Providers Care Financial Analyst Intern Name Role Phone Name, Kiel BAILEY Primary Care Provider [phone] Encounter Details Date Type Department Care Team Description 09/10/2022 Social Work [facility] Oncology Services [address] [place] [address] Adina Archer, [facility] Social History Tobacco Use Types Packs/Day Years [...] filedocumented in this encounter Care Teams Financial Analyst Intern Relationship Specialty Start Date End Date Name, MD Kiel [address] [place] [address] [address] [place] [address] PCP - General Internal Medicine 04/17/18 documented as of this encounter
--- OUTSIDE RECORDS SUMMARY | 2024-10-03 12:23 | XMS_ITS | Clinical Summary ---
Author Organization [facility] Address [address] [place] [address] [place] [address] Phone Care Team Providers Care Dean Of Graduate Studies Name Role Phone Unavailable Primary Care Provider [...] Devices Not on file Insurance [employer] [address] [place] [address] [place] [address] [place] [address] [place] [address] [employer] Additional Source Comments The information contained in this document represents components of the legal health record. It is not the complete legal health record.[facility]
== END 2024-10-03 12:07 | disposition home or self-care (01) ==
LOC: HO.HPS 11:26
PROVIDERS: PCP Internal Medicine Geriatric Medicine; Visit Provider Internal Medicine
DX: E66.01 Morbid (severe) obesity due to excess calories (principal); J98.4 Other disorders of lung; E66.9 Obesity, unspecified; J44.9 Chronic obstructive pulmonary disease, unspecified; G47.33 Obstructive sleep apnea (adult) (pediatric)
CPT/HCPCS: 99214

== ENCOUNTER → 2024-10-03 11:26 | Outpatient (BNVA) | payer MEDICAID, SELFPAY | PROVIDERS: PCP Internal Medicine Geriatric Medicine; Visit Provider Internal Medicine | DX: J44.9 Chronic obstructive pulmonary disease, unspecified (principal); E66.01 Morbid (severe) obesity due to excess calories; J98.4 Other disorders of lung; G47.33 Obstructive sleep apnea (adult) (pediatric); Z99.89 Dependence on other enabling machines and devices | CPT/HCPCS: 99212 ==

== ENCOUNTER 2024-10-06 15:35 | Emergency (ER) | payer MEDICAID, SELFPAY ==
--- NOTE | ~2024-10-06 | XR_ITS ---
CLINICAL HISTORY: fall, pain 4 view right hand Comparison: None provided Findings: 4 mm avulsion fracture of the radial styloid with no significant displacement. Subtle cortical irregularity in the distal 5th metacarpal. No dislocation. Mild arthritic changes. No radiopaque foreign body. IMPRESSION: 1. Multifocal soft tissue swelling. 2. 4 mm avulsion fracture of the radial styloid with no significant displacement. 3. Equivocal for a subtle nondisplaced fracture of the distal 5th metacarpal. Is there point tenderness here? This document has been electronically signed by: Jojo Velasquez DO on 10/06/2024 17:17:27
--- NOTE | ~2024-10-06 | XR_ITS ---
CLINICAL HISTORY: fall, pain 4 view right wrist Comparison: None provided Findings: 4 mm avulsion fracture of the radial styloid with no significant displacement. Negative ulnar variance. No dislocation. Mild arthritic changes. No radiopaque foreign body. IMPRESSION: 1. Soft tissue swelling. 2. 4 mm avulsion fracture of the radial styloid with no significant displacement. This document has been electronically signed by: Jojo Velasquez DO on 10/06/2024 17:12:31
[2024-10-06 15:37] VITALS: BP 135/79; PULSE 98; RESP 18; TEMP 36.2; O2SAT 93; BMI 41.4
--- NOTE | 2024-10-06 15:37 | ED.FALL ---
HPI - Fall General Chief Complaint: Fall Stated Complaint: fell right wrist pain Time Seen by Provider: 10/06/24 17:12 Source: patient and family Mode of arrival: ambulatory Limitations: no limitations History of Present Illness ED Provider: Justina Perez APRN HPI Narrative: 59 yo female with PMH of DM, HTN, COPD, hyperlipidemia, GERD, tubular adenoma, IBS, depression, lymphoma, CVA, and DRE with fall out of the car today with right wrist injury, abrasions to both knees. She reports she tripped catching herself with her right hand. Denies hitting head or LOC. Patient is right handed. Related Data Home Medications ?Medication ?Instructions ?Recorded ?Confirmed montelukast 10 mg tablet 10 mg PO BEDTIME 02/13/20 10/03/24 (Singulair) paroxetine HCl 40 mg tablet 40 mg PO BEDTIME 12/05/20 10/03/24 pen needle, diabetic 32 gauge x #50 ea 12/05/20 10/03/24 (Pentips Pen Needle) insulin glargine 100 unit/mL (3 36 unit subcut DAILY 05/26/21 10/03/24 mL) subcutaneous pen (Lantus Solostar U-100 Insulin) gabapentin 600 mg tablet 600 mg PO TID PRN Pain 04/21/22 10/03/24 lidocaine 5 % topical patch 1 patch topical DAILY PRN Pain 04/21/22 10/03/24 metoprolol succinate 25 mg 25 mg PO BEDTIME 04/21/22 10/03/24 tablet,extended release 24 hr oxcarbazepine 300 mg tablet 450 mg PO BEDTIME 04/21/22 10/03/24 clonidine HCl 0.1 mg tablet 0.1 mg PO BEDTIME 07/08/22 10/03/24 atorvastatin 80 mg tablet 80 mg PO BEDTIME 01/05/23 10/03/24 metformin 500 mg tablet,extended 500 mg PO BEDTIME 01/05/23 10/03/24 release 24 hr acetaminophen 650 mg 650 mg PO Q8H PRN Mild Pain (Scale 06/18/24 10/03/24 tablet,extended release Score 1-4) albuterol sulfate 2.5 mg/3 mL 2.5 mg inhalation Q4H PRN 06/18/24 10/03/24 (0.083 %) solution for nebulization shortness of breath or wheezing albuterol sulfate 90 mcg/actuation 2 puff inhalation Q4H PRN wheezing 06/18/24 10/03/24 aerosol inhaler (Ventolin HFA) baclofen 10 mg tablet 10 mg PO TID PRN muscle spasm 06/18/24 10/03/24 calcium 600 mg (as 1 tab PO BID 06/18/24 10/03/24 carbonate)-vitamin D3 5 mcg (200 unit) tablet cetirizine 10 mg tablet (Zyrtec) 10 mg PO DAILY 06/18/24 10/03/24 ezetimibe 10 mg tablet 10 mg PO DAILY 06/18/24 10/03/24 famotidine 20 mg tablet 20 mg PO BID 06/18/24 10/03/24 furosemide 20 mg tablet 20 mg PO DAILY 06/18/24 10/03/24 icosapent ethyl 1 gram capsule 2 g PO BID 06/18/24 10/03/24 losartan 50 mg tablet 50 mg PO DAILY 06/18/24 10/03/24 meloxicam 7.5 mg tablet 7.5 mg PO DAILY 06/18/24 10/03/24 oxcarbazepine 150 mg tablet 150 mg PO DAILY 06/18/24 10/03/24 tirzepatide 15 mg/0.5 mL 15 mg subcut FR 06/18/24 10/03/24 subcutaneous pen injector (Lurdes) trazodone 100 mg tablet 100 mg PO BEDTIME PRN insomnia 06/18/24 10/03/24 Previous Rx's ?Medication ?Instructions ?Recorded pyridoxine (vitamin B6) 100 mg 100 mg PO DAILY 90 days #90 tabs 11/30/23 tablet oxycodone 10 mg tablet 10 mg PO DAILY PRN headache #30 06/20/24 tabs ipratropium 20 mcg-albuterol 100 1 puff PO Q6H #4 grams 06/22/24 mcg/actuation mist for inhalation (Combivent Respimat) fluticasone propionate 115 2 puff inhalation Q12H ASTHMA/COPD 09/12/24 mcg-salmeterol 21 mcg/actuation 30 days #12 grams HFA inhaler (Advair HFA) ibuprofen 600 mg tablet 600 mg PO Q6H PRN pain #12 tabs 10/06/24 Allergies Allergy/AdvReac Type Severity Reaction Status Date / Time penicillin G (Penicillin G) Allergy Mild SWELLING Verified 10/06/24 15:39 barium sulfate (ORAL Allergy Unknown HIVES Verified 10/06/24 15:39 CONTRAST) cephalexin Allergy Unknown Unknown Verified 10/06/24 15:39 Review of Systems Review of Systems: Yes all other systems are reviewed and are negative Constitutional: Constitutional: Reports no additional constitutional complaints, Denies body ache(s), Denies chills, Denies fever(s), Denies headache(s) and Denies weakness Eyes: Eyes: Reports no additional eye complaints and Denies change in vision ENT: Reports system reviewed and no additional complaints, except as documented, Denies dizziness, Denies headache(s), Denies nasal congestion, Denies nasal discharge and Denies neck pain Cardiovascular: Cardiovascular: Reports no additional cardiovascular complaints, Denies chest pain, Denies leg edema and Denies dyspnea Respiratory: Respiratory: Reports no additional respiratory complaints, Denies cough and Denies dyspnea Gastrointestinal: Gastrointestinal: Reports no additional gastrointestinal complaints, Denies abdominal pain, Denies diarrhea, Denies nausea and Denies vomiting Genitourinary: Genitourinary: Reports no additional female genitourinary complaints and Denies urinary incontinence Musculoskeletal: Musculoskeletal: Reports no additional musculoskeletal complaints, Denies back pain, Reports arthralgias, Denies joint swelling, Denies limited range of motion, Denies neck pain, Denies numbness and Denies tingling Integumentary/Breasts: Skin/Breast: Reports system reviewed and no additional complaints, except as docu and Denies rash Neurologic: Reports system reviewed and no additional complaints, except as documented, Denies Abnormal speech present, Denies dizziness, Denies headache(s), Denies numbness, Denies tingling and Denies weakness [facility] Past Medical History Attestation statement: The following information was validated with the patient. Source: old records reviewed and nursing notes reviewed Medical History COPD (chronic obstructive pulmonary disease) Diabetes mellitus Brain lesion Reactive airway disease Coronary artery disease Insulin dependent type 2 diabetes mellitus Exposure to rabies Lymphoma Restrictive lung disease secondary to obesity Nocturnal hypoxemia DRE (obstructive sleep apnea) Cough Nicotine dependence, cigarettes, uncomplicated Allergic rhinitis Morbid obesity Hyperlipidemia GERD (gastroesophageal reflux disease) Tubular adenoma Chronic idiopathic constipation IBS (irritable bowel syndrome) Back pain Depression Surgical History History of total right knee replacement (TKR) History of appendectomy (~1978) History of (~1986) History of hysterectomy (~1995) History of lithotripsy (~2018) History of carpal tunnel surgery of right wrist (~2020) History of colonoscopy History of esophagogastroduodenoscopy (EGD) Family History Family History Mother Diabetes Heart muscle disorder caused by another medical condition Father Diabetes Epilepsy Sister No problems noted. Sister No problems noted. Sister No problems noted. Sister No problems noted. Sister No problems noted. Brother No problems noted. Brother No problems noted. Brother No problems noted. Brother No problems noted. Brother No problems noted. Brother No problems noted. Daughter No problems noted. Daughter No problems noted. Son No problems noted. Son No problems noted. Son No problems noted. Social History Social History Household Members: Other Household Members Other:: grandson Housing: Apartment Are you a primary palliative care physician to a significant other at home: No Do you presently have visiting nurse or other home services: No Alcohol intake: current Alcohol intake frequency: a few times a week Patient Tobacco Use Status: Current everyday Tobacco user Tobacco use type: Cigarette Cigarette Packs Per Day: 2 Cigarettes Per Day: 40.0 Years Smoked: (onset 13yo, x 42yrs, max 2ppd, now 1/2ppd - 30PYH) e-Cigarette/Vaping Use: Never Used Second Hand Smoke Exposure: No Substance Use Type: Marijuana Advance Directives: No Advance Directives Information Provided: No service: No Current occupational status: disabled Current occupation: rt handed Physical Exam Vital Signs: Vital Signs: Last Vital Signs Temp 97.2 F 10/06/24 15:37 Pulse 98 10/06/24 15:37 Resp 18 10/06/24 15:37 BP 135/79 10/06/24 15:37 Pulse Ox 93 10/06/24 15:37 O2 Del Method Room Air 10/06/24 15:37 BMI result Body Mass Index 41.4 Const: General: cooperative, healthy appearing, comfortable and no acute distress Orientation/consciousness: patient oriented x3 Limitations: no limitations HEENT: Head: Yes normal to inspection Ears: hearing grossly normal bilaterally General nose exam: Normal external nose present Face and sinus: Yes normal facial exam Mouth: Normal oral and palatal mucosa present Throat: Yes posterior oropharynx normal Eyes: General: appearance normal, both eyes and all related structures Pupils: Equal, round and reactive pupils present Neck: Neck: Yes normal visual inspection Chest: Chest palpation & inspection: normal inspection of the chest Resp: Effort & Inspection: normal respiratory effort Auscultation: clear to auscultation bilaterally Cardio: Rate: regular rate Rhythm: regular rhythm Peripheral pulses: Peripheral pulses 2+ throughout GI: Inspection: Yes normal to inspection Palpation (GI): Soft to palpation and nontender Auscultation: normal bowel sounds Back/Spine/Pelvis: Thoracic/Lumbar Spine: thoracic and lumbar spine normal to inspection Skin: General skin exam: no rashes or lesions noted Neuro: General: patient oriented x3, no focal motor deficits and normal sensation to monofilament Cranial nerves: Yes Equal, round and reactive pupils present Cognition (Neuro): normal cognition Speech: No Abnormal speech present Gait exam (Neuro): Normal gait present Motor exam (neuro): 5/5 motor strength present throughout Extrem: Other: Patient has tenderness on palpation to the right wrist over the distal medial aspect. There is no snuffbox tenderness. There is limited flexion extension of the wrist due to pain. There is no tenderness on palpation to the right elbow, right hand, right digits. There is normal sensation. 2+ radial and ulnar pulses. General: Yes normal to inspection Course Course Course Narrative: Justina Arroyoguillaume WALL MAN 10/06 1538 This is a rapid medical exam. Deferred additional HPI, ROS, PE to primary provider. 59 yo female with PMH of DM, HTN, COPD, hyperlipidemia, GERD, tubular adenoma, IBS, depression, lymphoma, CVA, and DRE with fall out of the car today with right wrist injury, abrasions to both knees. Denies hitting head or LOC. Patient is right handed. Will obtain x-rays VSS Reevaluation(s) Reevaluation #1: X-ray show 4 mm avulsion fracture of the radial styloid with no significant displacement. There is no snuffbox tenderness on exam so I doubt a scaphoid fracture as well. There is also a question on the report of a subtle nondisplaced fracture of the distal 5th metacarpal. There is no point tenderness on exam so I doubt fracture. Patient placed in a wrist splint. Reviewed rice. Reviewed worrisome signs and symptoms of when to return to the emergency room. Comfortable plan for discharge home Procedures Orthopedic Splinting/Casting Injury #1: Side: right Upper Extremity Injury Location: wrist Upper Extremity Immobilizer: wrist splint Medical Decision Making Medical Decision Making MDM Narrative: 59 yo female with PMH of DM, HTN, COPD, hyperlipidemia, GERD, tubular adenoma, IBS, depression, lymphoma, CVA, and DRE with fall out of the car today with right wrist injury, abrasions to both knees. She reports she tripped catching herself with her right hand. Denies hitting head or LOC. Patient is right handed. Patient has tenderness on palpation to the right wrist over the distal medial aspect. There is no snuffbox tenderness. There is limited flexion extension of the wrist due to pain. There is no tenderness on palpation to the right elbow, right hand, right digits. There is normal sensation. 2+ radial and ulnar pulses. Will check x-ray, provide analgesia Differential Diagnosis Differential Diagnoses: The differential diagnosis associated with the presentation includes Fracture, sprain, strain, contusion Low suspicion for complex fracture, dislocation, vascular injury Admission/Observation Consideration of admission/observation: Escalation of care including admission/observation considered Low suspicion for complex fracture, dislocation, vascular injury requiring advanced imaging, urgent orthopedic consultation and or admission Consult Healthcare Provider Management of the patient was discussed with: Lead Software Tester I did speak to Emily from orthopedics. She recommended a Velcro splint and follow-up Independent Interpretation I performed an independent interpretation of an: Plain X-Ray Interpretation: I independently viewed the x-ray and agree with the radiology report Radiology Impression Discussion of test interpretation with radiology: I have reviewed the radiologist's reading. Radiologist Impression: [address] [address] XRay Report Signed Patient: Sarita Puga MR#: [id number] : 1965 Acct:[id number] Age/Sex: 59 / F ADM Date: 10/06/24 Loc: HO.ED Attending Dr: Ordering Physician: Justina Perez NP Date of Service: 10/06/24 Procedure(s): XR hand RT min 3V Accession Number(s): [id number] cc: Kiel Shaffer MD; Justina Perez NP~ CLINICAL HISTORY: fall, pain 4 view right hand Comparison: None provided Findings: 4 mm avulsion fracture of the radial styloid with no significant displacement. Subtle cortical irregularity in the distal 5th metacarpal. No dislocation. Mild arthritic changes. No radiopaque foreign body. IMPRESSION: 1. Multifocal soft tissue swelling. 2. 4 mm avulsion fracture of the radial styloid with no significant displacement. 3. Equivocal for a subtle nondisplaced fracture of the distal 5th metacarpal. Is there point tenderness here? This document has been electronically signed by: Jojo Velasquez DO on 10/06/2024 17:17:27 [place] [id number] XRay Report Signed Patient: Sarita Puga MR#: [id number] : 1965 Acct:[id number] Age/Sex: 59 / F ADM Date: 10/06/24 Loc: HO.ED Attending Dr: Ordering Physician: Justina Perez NP Date of Service: 10/06/24 Procedure(s): XR wrist RT min 3V Accession Number(s): [id number] cc: Kiel Shaffer MD; Justina Perez NP~ CLINICAL HISTORY: fall, pain 4 view right wrist Comparison: None provided Findings: 4 mm avulsion fracture of the radial styloid with no significant displacement. Negative ulnar variance. No dislocation. Mild arthritic changes. No radiopaque foreign body. IMPRESSION: 1. Soft tissue swelling. 2. 4 mm avulsion fracture of the radial styloid with no significant displacement. Independent Historian Clinical information obtained from an independent historian. History obtained from or confirmed by: Other (daughter ) Prescription Management I considered prescription management with: Pain Medication Patient has oxycodone 10 mg at home p.r.n.. Recommend to supplement Motrin and Tylenol Discharge Plan Discharge Clinical Impression: Closed fracture of radial styloid Patient Disposition: Home, Self-Care Instructions: Arm Fracture in Adults (ED) Additional Instructions: Your x-ray shows a very small fracture in the wrist. This is treated with a Velcro splint. Apply ice to the area Elevate the extremity Call orthopedics on Tuesday to follow-up Take your home oxycodone as needed. You may also take tylenol or motrin as needed Prescriptions: New ibuprofen 600 mg tablet 600 mg PO Q6H PRN (Reason: pain) Qty: 12 0RF No Action pyridoxine (vitamin B6) 100 mg tablet 100 mg PO DAILY 90 Days Qty: 90 3RF Combivent Respimat 20-100 mcg/actuation mist 1 puff PO Q6H Qty: 4 3RF Advair HFA 115-21 mcg/actuation HFA aerosol inhaler 2 puff inhalation Q12H 30 Days Qty: 12 5RF Rx Instructions: administer with spacer losartan 50 mg tablet 50 mg PO DAILY oxcarbazepine 150 mg tablet 150 mg PO DAILY calcium carbonate-vitamin D3 600 mg-5 mcg (200 unit) tablet 1 tab PO BID meloxicam 7.5 mg tablet 7.5 mg PO DAILY famotidine 20 mg tablet 20 mg PO BID trazodone 100 mg tablet 100 mg PO BEDTIME PRN (Reason: insomnia) baclofen 10 mg tablet 10 mg PO TID PRN (Reason: muscle spasm) furosemide 20 mg tablet 20 mg PO DAILY albuterol sulfate [Ventolin HFA] 90 mcg/actuation HFA aerosol inhaler 2 puff INHALATION Q4H PRN (Reason: wheezing) ezetimibe 10 mg tablet 10 mg PO DAILY icosapent ethyl 1 gram capsule 2 g PO BID Mounjaro 15 mg/0.5 mL pen injector 15 mg subcut FR acetaminophen 650 mg tablet extended release 650 mg PO Q8H PRN (Reason: Mild Pain (Scale Score 1-4)) albuterol sulfate 2.5 mg /3 mL (0.083 %) solution for nebulization 2.5 mg inhalation Q4H PRN (Reason: shortness of breath or wheezing) cetirizine [Zyrtec] 10 mg tablet 10 mg PO DAILY oxycodone 10 mg tablet 10 mg PO DAILY PRN (Reason: headache) Qty: 30 0RF Rx Instructions: Partial Fill upon patient request. montelukast [Singulair] 10 mg tablet 10 mg PO BEDTIME gabapentin 600 mg tablet 600 mg PO TID PRN (Reason: Pain) metoprolol succinate 25 mg tablet extended release 24 hr 25 mg PO BEDTIME (DME) pen needle, diabetic [Pentips Pen Needle] 32 gauge x 5/32 needle See Rx Instructions .ROUTE DAILY Qty: 50 Rx Instructions: As directed paroxetine HCl 40 mg tablet 40 mg PO BEDTIME Lantus Solostar U-100 Insulin 100 unit/mL (3 mL) insulin pen 36 unit subcut DAILY lidocaine 5 % adhesive patch,medicated 1 patch topical DAILY PRN (Reason: Pain) Rx Instructions: leave on most painful area for up to 12 hrs oxcarbazepine 300 mg tablet 450 mg PO BEDTIME clonidine HCl 0.1 mg tablet 0.1 mg PO BEDTIME metformin 500 mg tablet extended release 24 hr 500 mg PO BEDTIME atorvastatin 80 mg tablet 80 mg PO BEDTIME Referrals: [facility] Orthopedic Surgeons [Provider Group] Print Language: English
[2024-10-06] MEDS: oxyCODONE HCl Immed Release 5 MG TABLET 10 MG PO (17:45)
== END 2024-10-06 18:25 | disposition home or self-care (01) ==
PROVIDERS: Emergency Provider Emergency Medicine; PCP Internal Medicine Geriatric Medicine
DX: S52.511A Displaced fracture of right radial styloid process, initial encounter for closed fracture (principal); S80.211A Abrasion, right knee, initial encounter; S80.212A Abrasion, left knee, initial encounter; M79.641 Pain in right hand; M25.531 Pain in right wrist; X50.1XXA Overexertion from prolonged static or awkward postures, initial encounter; Y93.9 Activity, unspecified; Y92.9 Unspecified place or not applicable; Y99.8 Other external cause status; Z79.899 Other long term (current) drug therapy
CPT/HCPCS: 29125; 73110; 73130; 99283; 99284

== ENCOUNTER → 2024-10-06 15:39 | Outpatient (BNV) | payer MEDICAID, SELFPAY | PROVIDERS: Emergency Provider Emergency Medicine; PCP Internal Medicine Geriatric Medicine; Visit Provider Radiology Diagnostic Radiology | DX: S52.514A Nondisplaced fracture of right radial styloid process, initial encounter for closed fracture (principal) | CPT/HCPCS: 73110; 73130 ==

== ENCOUNTER 2024-10-17 09:30 | Outpatient (REF) | payer MEDICAID, SELFPAY ==
--- OUTSIDE RECORDS SUMMARY | 2023-11-24 09:53 | XMS_ITS | Encounter Summary ---
Author Organization [facility] Address [address] [place] [address] Care Team Providers Care Scooter Mechanic Name Role Phone Name, Kiel BAILEY Primary Care Provider [phone] Encounter Details Date Type Department Care Team (Late st Contact Info) Description 11/24/2023 9:53 AM EDT Hospital Encounter TH HISTORIC ENCOUNTERS EASTERN CONVERSION ONLY Geoffrey-Art Vitale MD [address] [place] [address] Social History Tobacco Use Types [...] 2:17 PM Encounter Date: 11/24/2023 Status: Signed Orchestra Leader: Art Davis MD (Physician) CHIEF COMPLAINT: Chief Complaint Patient presents with ? Follow-up Diffuse large B-cell lymphoma Stage III Completed 6 cycles of R-CHOP in July 23, 2018 IDENTIFIER:Sarita Puga is a 58 y.o. female. HPI: The patient returns for follow up of Large B-cell lymphoma. Here with her daughter , who is paraguayan to maltese hourly sign language interpreter Patient reports that she has [...] accompanied by her daughter and girlfriend. As Swedish to Croatian hourly sign language interpreter assisted with the discussion. She [...] AM EDT Office Visit Orthopedic Surgery - [address] [phone] Wesley Garcia, DPM [address] [place] [phone] documented as of this encounter Procedures Procedure [...] documented as of this encounter Care Teams Scooter Mechanic Relationship Specialty Start Date End Date Name, MD Kiel 4 [place], [place] PCP - General Internal Medicine 08/28/15 documented as of this encounter
--- OUTSIDE RECORDS SUMMARY | 2023-11-24 10:30 | XMS_ITS | Encounter Summary ---
Author Organization [facility] Address [address] [place] [address] Care Team Providers Care Tool Setter Apprentice Name Role Phone Name, Kiel BAILEY Primary Care Provider [phone] Encounter Details Date Type Department Care Team (Late Contact Info) Description 11/24/2023 10:30 AM EDT Hospital Encounter TH HISTORIC ENCOUNTERS EASTERN CONVERSION ONLY Geoffrey-Art Vitale MD [address] [place] [address] Social History Tobacco Use Types [...] 9:45 AM EDT Office Visit Orthopedic Surgery [facility] 250 175 [facility] [address] [place] [phone] Wesley Garcia, DPM [address] [place] [phone] documented as of this encounter Visit Diagnoses Not on filedocumented in this encounter Additional Health Concerns Infection Onset Date Last Indicated Resolved Time Respiratory Rule-Out 02/05/2024 02/05/2024 024 8:09 AM EST COVID-19 Rule-Out 02/05/2024 02/05/2024 02/05/2024 8:09 AM EST documented as of this encounter Care Teams Tool Setter Apprentice Relationship Specialty Start Date End Date Name, MD Kiel 4 [place], [place] PCP - General Internal Medicine 08/28/15 documented as of this encounter
--- NOTE | ~2024-10-17 | XR_ITS ---
EXAMINATION: XR WRIST 3 OR MORE VIEWS RIGHT HISTORY: M25.531 - Pain in right wrist COMPARISON: Comparison is made with the prior examination dated 1624. FINDINGS: Three views of the right wrist are submitted. Osseous mineralization is normal. Again seen is a nondisplaced fracture of the radial styloid. The joint spaces are preserved. The soft tissues are unremarkable. XR/XR wrist RT min 3V IMPRESSION: Nondisplaced fracture of the radial styloid without significant change. Electronically signed by: Kenny Fernandes MD 10/17/2024 11:47 AM EDT
--- OUTSIDE RECORDS SUMMARY | 2024-10-17 10:07 | XMS_ITS | Encounter Summary ---
Author Organization [employer] Address [address] [place] [address] [address] [place] [address] Care Team Providers Care Desktop Engineer Name Role Phone Name, Kiel BAILEY Primary Care Provider [phone] Katlyn Rodriguez PharmD Unavailable Nehal Ann RN Unavailable [phone] Ania Spencer Unavailable Encounter Details Date Type Department Care Team ([facility] Contact Info) Description 10/29/2022 Abstract [facility] MEDICINE [address] [place] [id number] Name, MD Kiel [address] [place] [id number] Social History Tobacco Use Types Packs/Day Years [...] Encounters Date Type Department Care Team ([facility] Contact Info) Description 10/29/2024 9:30 AM EDT Medication Management [address] [address] PuiaReidKatlyn, PharmD [address] [place] [address] 11/15/2024 11:30 AM EDT Clinical Support [facility] MEDICINE [address] [place] [address] Opal Steiner RN documented as of this encounter Goals Goal Patient Goal Type Associated Problems Recent Progress Patient-Stated? Author Hemoglobin A1c < 7 Result Component 7.5( 11:12 AM EDT) No Puia Katlyn, PharmD Record your blood sugar as directed Result Component No Puia Katlyn, PharmD documented as of this encounter Procedures Procedure Name Priority Date/Time Associated Diagnosis Comments DIABETES EYE EXAM Routine 05/26/2022 documented in this encounter Results * Diabetes Eye Exam (05/26/2022) [facility] Signature Eye Exam Normal Normal Kiel Shaffer MD HEALTH MAINTENANCE Final Result documented in this encounter Visit Diagnoses Not on filedocumented in this encounter Additional Health Concerns Assessment Noted Time PHQ-9 Depression Total Score: 7 07/15/19 23 2:39 PM EDT documented as of this encounter Care Teams Desktop Engineer Relationship Specialty Start Date End Date Name, MD Kiel [address] [place] [phone] PCP - General Family Medicine 07/15/15 AdeniaReidKatlyn, PharmD [address] [place] [phone] Pharmacist Internal Medicine 10/08/22 Nehal Ann RN [address] [place] [phone] Registered Nurse Family Medicine 08/20/24 Ania Spencer 08/20/24 Marta Ovalle House WreckerRoute Delivery Clerk 05/25/23 documented as of this encounter
--- OUTSIDE RECORDS SUMMARY | 2024-10-17 10:07 | XMS_ITS | Encounter Summary ---
Author Organization [employer] Address [address] [place] [address] [address] [place] [address] Care Team Providers Care Glove Parts Inspector Name Role Phone Name, Kiel BAILEY Primary Care Provider [phone] Katlyn Rodriguez PharmD Unavailable [phone] Nehal Ann RN Unavailable [phone] Ania Spencer Unavailable Encounter Details Date Type Department Care Team ([facility] Contact Info) Description 03/12/2022 Orders Only [facility] MED & PEDS [address] [place], [place] [phone] Millie Sawant LPN Social History Tobacco Use [...] Team ([facility] Contact Info) Description 10/29/2024 9:30 AM EDT Medication Management [facility] MEDICINE [address] [place] [address] Katlyn Rodriguez PharmD [address] [place] [address] 11/15/2024 11:30 AM EDT Clinical Support [facility] MEDICINE [address] [place] [address] Opal Steiner, RN documented as of this encounter Visit Diagnoses Not on filedocumented in this encounter Care Teams Glove Parts Inspector Relationship Specialty Start Date End Date Name, MD Kiel [address] [place] [id number] PCP - General Family Medicine 07/15/15 Katlyn Rodriguez, PharmD [address] [place] [phone] Pharmacist Internal Medicine 10/08/22 Nehal Ann RN [address] [place] [phone] Registered Nurse Family Medicine 08/20/24 Ania Spencer 08/20/24 Marta Ovalle Project Manager [employer] Hand Engraver 05/25/23 documented as of this encounter
--- OUTSIDE RECORDS SUMMARY | 2024-10-17 10:07 | XMS_ITS | Encounter Summary ---
Author Organization [employer] Address [address] [facility] 7t [place] [address] Care Team Providers Care Antiquer Name Role Phone Name, Kiel BAILEY Primary Care Provider [phone] Katlyn Rodriguez PharmD Unavailable Nehal Ann RN Unavailable [phone] Ania Spencer Unavailable Encounter Details Date Type Department Care Team (Late st Contact Info) Description 02/20/2024 Telephone [facility] MED & PEDS [address] [place] [address] Name, MD Kiel [address] [place] [address] Social History Tobacco Use Types Packs/Day Years [...] Care Team (Late st Contact Info) Description 10/29/2024 9:30 AM EDT Medication Management [address] [address] Puia, Katlyn, PharmD [address] [place], [place] [address] 11/15/2024 11:30 AM EDT Clinical Support [address] [address] Opal Steiner RN documented as of this encounter Goals Goal Patient Goal Type Associated Problems Recent Progress Patient-Stated? Author Record your blood pressure once per day Blood Pressure No Puia, Katlyn, PharmD Blood Pressure < 140/90 Blood Pressure 150/87(2024 2:08 PM EDT) No Puia, Katlyn, PharmD Hemoglobin A1c < 7 Result Component 7.5( 11:12 AM EDT) No Puia, Katlyn, PharmD Record your blood sugar as directed Result Component No Puia, Katlyn, PharmD documented as of this encounter Visit Diagnoses Not on filedocumented in this encounter Additional Health Concerns Assessment Noted Time PHQ-9 Depression Total Score: 4 09/02/19 24 10:30 AM EDT documented as of this encounter Care Teams Antiquer Relationship Specialty Start Date End Date Name, MD Kiel [address] [place] [address] PCP - General Family Medicine 07/15/15 Katlyn Rodriguez, Bin [address] [place] [address] Pharmacist Internal Medicine 10/08/22 Nehal Ann RN [address] [place] [address] Registered Nurse Family Medicine 08/20/24 Ania Spencer 08/20/24 Marta Ovalle Dairy Processing Equipment OperatorTheatrical Performer 05/25/23 documented as of this encounter
--- OUTSIDE RECORDS SUMMARY | 2024-10-17 10:07 | XMS_ITS | Encounter Summary ---
Author Organization [employer] Address 75 [facility] 7t [place] [address] Care Team Providers Care Electrician Helper Name Role Phone Name, Kiel BAILEY Primary Care Provider Katlyn Rodriguez PharmD Unavailable [phone] Nehal Ann RN Unavailable [phone] Ania Spencer Unavailable Encounter Details Date Type Department Care Team (Late st Contact Info) Description 05/01/2024 Telephone [facility] MEDICINE [address] [place], [place] [phone] Name, MD Kiel [address] [place], [place] [phone] Social History Tobacco Use Types Packs/Day Years [...] Description 10/29/2024 9:30 AM EDT Medication Management [address] [address] Katlyn Rodriguez, PharmD [address] [place] [address] 11/15/2024 11:30 AM EDT Clinical Support [address] [address] Opal Steiner RN documented as of this [...] documented as of this encounter Care Teams Electrician Helper Relationship Specialty Start Date End Date Name, MD Kiel [address] [place] [address] PCP - General Family Medicine 07/15/15 Puia, Katlyn, PharmD [address] [place] [address] Pharmacist Internal Medicine 10/08/22 Nehal Ann RN [address] [place] [address] Registered Nurse Family Medicine 08/20/24 Ania Spencer 08/20/24 Marta Ovalle Punch FinisherMagnetic Tape Winder 05/25/23 documented as of this encounter
--- OUTSIDE RECORDS SUMMARY | 2024-10-17 10:07 | XMS_ITS | Encounter Summary ---
Author Organization [employer] Address [address] [facility] 7t [place] [address] Care Team Providers Care Vice Chair Name Role Phone Name, Kiel BAILEY Primary Care Provider [phone] Katlyn Rodriguez PharmD Unavailable [phone] Nehal Ann RN Unavailable [phone] Ania Spencer Unavailable Encounter Details Date Type Department Care Team (Late st Contact Info) Description 10/16/2024 Patient Outreach [facility] CHC MED & PEDS [address] [place] [address] Name, MD Kiel [address] [place] [address] Social History Tobacco Use Types Packs/Day Years [...] Description 10/29/2024 9:30 AM EDT Medication Management [address] [address] Puia, Katlyn, PharmD [address] [place], [place] [phone] 11/15/2024 11:30 AM EDT Clinical Support [address] [address] Opal Steiner RN documented as of this [...] documented as of this encounter Care Teams Vice Chair Relationship Specialty Start Date End Date Name, MD Kiel [address] [place] [address] PCP - General Family Medicine 07/15/15 Katlyn Rodriguez PharmD 230 [place] [address] Pharmacist Internal Medicine 10/08/22 Nehal Ann RN [address] [place] [address] Registered Nurse Family Medicine 08/20/24 Ania Spencer 08/20/24 Marta Ovalle Ticketing ClerkMotor Pool Driver 05/25/23 documented as of this encounter
--- OUTSIDE RECORDS SUMMARY | 2024-10-17 10:07 | XMS_ITS | Encounter Summary ---
Author Organization [employer] Address [address] [place] [address] 7t [place] [address] Care Team Providers Care Skin Fitter Name Role Phone Kiel Shaffer MD Primary Care Provider [phone] Katlyn Rodriguez PharmD Unavailable [phone] Nehal Ann RN Unavailable [phone] Ania Spencer Unavailable Reason for Referral * Consultation (Routine) - Closed Specialty Diagnoses / Procedures Referred By Carroll hoover Referred To Contact Physical Therapy Diagnoses Hemiparesis of left dominant side as late effect of cerebral infarction ([facility]) Kiel Shaffer MD [address] [place] [address] Phone: tel: fax: [facility] Physical Therapy [address] [place] [address] Phone: tel: fax: Referral ID Status Reason Start Date Expiration Date V isits Requested Visits Authorized [id number] Closed Specialty Services Required 10/06/2024 10/06/2025 20 20 Reason for Visit * Reason Onset Date Comments Referral 10/05/2024 Encounter Details Date Type Department Care Team ([facility] st Contact Info) Description 10/05/2024 Telephone [facility] MEDICINE [address] [place] [address] Kiel Shaffer MD [address] [place], [place] [phone] Referral Social History Tobacco Use Types Packs/Day Years [...] Telephone Encounter - Flora Christianson RN - 10/05/2024 2:14 PM EDT Noted. Thank you! * Telephone Encounter - Flora Christianson RN - 10/05/2024 1:40 PM EDT TC placed to [facility] with [facility] physical therapy regarding referral request. [facility] states they havean order for physical therapy for weakness of both lower extremities. [facility] is requesting the referral be sent to them with MD signature. [facility] states when requesting additional visits through [facility], they are very particular and request MD signature. [facility] provided fax number [phone]. TC placed to [facility] Blue Team research specialist [facility] for clarification on what is to be done. [facility] states they have not heard of this. [facility] states pt may need new referral as they after 30 days. TC placed to [facility] with [facility] physical therapy for clarification on request. [facility] states they require the referral to be electronically signed or physically signed by an MD. Message forwarded to PCP to review and advise. * Telephone Encounter - Rosario Phillips - 10/05/2024 11:04 AM EDT TC from [facility] with [facility] requesting a new referral for physical therapy with an MD sing Contact pt at [phone] documented in this encounter Plan of Treatment Upcoming Encounters Date Type Department Care Team (Late st Contact Info) Description 10/29/2024 9:30 AM EDT Medication Management [address] [address] AdeniaKatlyn, PharmD [address] [place] [address] 11/15/2024 11:30 AM EDT Clinical Support [address] [address] Opal Steiner RN Scheduled Referrals Name Type Priority Associated Diagnoses Orde r Schedule Referral to Physical Therapy Outpatient Referral Routine Hemiparesis of left dominant side as late effect of cerebral infarction (CMS/HCC) Expected: 10/05/2024 (Approximate), Expires: 10/05/2025 documented as of this encounter Goals Goal [...] as of this encounter Visit Diagnoses Diagnosis Hemiparesis of left dominant side as late effect of cerebral infarction (CMS/HCC)- Primary documented in this encounter Additional Health Concerns Assessment Noted Time PHQ-9 Depression Total Score: 7 09/05/19 25 11:46 AM EDT documented as of this encounter Care Teams Skin Fitter Relationship Specialty Start Date End Date Name, MD Kiel [address] [place] [address] PCP - General Family Medicine 07/15/15 Katlyn Rodrgiuez, PharmD [address] [place] [address] Pharmacist Internal Medicine 10/08/22 Nehal Ann RN [address] [place] [address] Registered Nurse Family Medicine 08/20/24 Ania Spencer 08/20/24 Marta Ovalle Motorcycle PoliceAccounting Lecturer 05/25/23 documented as of this encounter
--- OUTSIDE RECORDS SUMMARY | 2024-10-17 10:07 | XMS_ITS | Encounter Summary ---
Author Organization [employer] Address [address] [place] [address] 7t [place] [address] Care Team Providers Care Radio Frequency Engineer Name Role Phone Name, Kiel BAILEY Primary Care Provider [phone] Katlyn Rodriguez PharmD Unavailable [phone] Nehal Ann RN Unavailable [phone] Ania Spencer Unavailable Reason for Visit * Reason Onset Date Comments Medication Problem 08/30/2023 Encounter Details Date Type Department Care Team (Late st Contact Info) Description 08/30/2023 Telephone [facility] MEDICINE [address] [place], [place] [phone] Name, MD Kiel [address] [place], [place] [phone] Medication Problem Social History Tobacco Use Types [...] Description 10/29/2024 9:30 AM EDT Medication Management [address] [address] Katlyn Rodriguez, PharmD [address] [place] [address] 11/15/2024 11:30 AM EDT Clinical Support [facility] MEDICINE [address] [place] [address] Opal Steiner RN documented as of this encounter Goals Goal Patient Goal Type Associated Problems Recent Progress Patient-Stated? Author Record your blood pressure once per day Blood Pressure No Puia, Katlyn, PharmD Blood Pressure < 140/90 Blood Pressure 150/87(2024 2:08 PM EDT) No Prema Rodriguezsa, PharmD Hemoglobin A1c < 7 Result Component 7.5( 11:12 AM EDT) No Puia, Katlyn, PharmD Record your blood sugar as directed Result Component No Puia Katlyn, PharmD documented as of this encounter Visit Diagnoses Not on filedocumented in this encounter Additional Health Concerns Assessment Noted Time PHQ-9 Depression Total Score: 7 07/15/19 23 2:39 PM EDT documented as of this encounter Care Teams Radio Frequency Engineer Relationship Specialty Start Date End Date Name, MD Kiel [address] [place] [address] PCP - General Family Medicine 07/15/15 Katlyn Rodriguez, PharmD [address] [place] [address] Pharmacist Internal Medicine 10/08/22 Nehal Ann RN [address] [place] [address] Registered Nurse Family Medicine 08/20/24 Ania Spencer 08/20/24 Marta Ovalle Mortgage ProcessorPaper Testing Supervisor 05/25/23 documented as of this encounter
--- OUTSIDE RECORDS SUMMARY | 2024-10-17 10:07 | XMS_ITS | Encounter Summary ---
Author Organization [employer] Address [address] [facility] 7t [place] [address] Care Team Providers Care Recreation Counselor Name Role Phone Name, Kiel BAILEY Primary Care Provider [phone] Katlyn Rodriguez PharmD Unavailable [phone] Nehal Ann RN Unavailable [phone] Ania Spencer Unavailable Reason for Visit * Reason Comments Med Refill Encounter Details Date Type Department Care Team (Late st Contact Info) Description 09/07/2023 Refill [facility] CHC MED & PEDS [address] [place] [address] Name, MD Kiel [address] [place] [address] Type 2 diabetes mellitus with other specified [...] Description 10/29/2024 9:30 AM EDT Medication Management [address] [address] PuiaReidKatlyn, PharmD [address] [place] [address] 11/15/2024 11:30 AM EDT Clinical Support [address] [address] Opal Steiner RN documented as of this [...] documented as of this encounter Care Teams Recreation Counselor Relationship Specialty Start Date End Date Name, MD Kiel [address] [place] [address] PCP - General Family Medicine 07/15/15 Katlyn Rodriguez, Bin [address] [place] [address] Pharmacist Internal Medicine 10/08/22 Nehal Ann RN [address] [place] [address] Registered Nurse Family Medicine 08/20/24 Ania Spencer 08/20/24 Marta Ovalle Microelectronics AssemblerMultimedia Producer 05/25/23 documented as of this encounter
--- OUTSIDE RECORDS SUMMARY | 2024-10-17 10:07 | XMS_ITS | Clinical Summary ---
Author Organization [facility] Address [address] [place] [address] Care Team Providers Care Explosive Ordnance Disposal Specialist Name Role Phone Name, Kiel BAILEY Primary Care Provider [phone] Allergies Active Allergy Reactions Criticality Noted Date [...] 77 11/24/2023 10:39 AM EDT Temperature 36.3 C (97.3 F) 11/24/2023 10:39 AM EDT Respiratory Rate - - Oxygen [...] Cancer Screening (Mammogram) 08/22/2015 Influenza Vaccine (#1) 2024 3, 11/13/2021, 01/21/2021, Additional history exists DTap / Tdap / Td (3 - Td or Tdap) 10/23/2031 10/22/2021, 10/26/2011 Shingrix-Zoster Vaccine Completed 04/01/2022, 05/06 Pneumococcal Vaccine Completed 10/08/2022, 02/05/2018, 10/03/2013, Additional history exists Hepatitis B Vaccines Completed 11/05/2022, 10/09/19 23 RSV Ped < 20 months Aged Out No longe r eligible based on patient's age to complete this topic Care Teams Explosive Ordnance Disposal Specialist Relationship Specialty Start Date End Date Name, MD Kiel [address] [facility] [address] PCP - General Internal Medicine 04/17/18
--- OUTSIDE RECORDS SUMMARY | 2024-10-17 10:07 | XMS_ITS | Encounter Summary ---
Author Organization [facility] Address [address] [place] [address] Care Team Providers Care Scaler Name Role Phone Name, Kiel BAILEY Primary Care Provider [phone] Encounter Details Date Type Department Care Team Description 09/10/[address] [facility] Oncology Services [address] [place] [address] Adina Archer, [facility] Social History Tobacco Use Types Packs/Day Years [...] on filedocumented in this encounter Care Teams Scaler Relationship Specialty Start Date End Date Name, MD Kiel [address] [place] [address] [address] [place] [address] PCP - General Internal Medicine 04/17/18 documented as of this encounter
--- OUTSIDE RECORDS SUMMARY | 2024-10-17 10:07 | XMS_ITS | Encounter Summary ---
Author Organization [employer] Address [address] [place] [address] 7t [place] [address] Care Team Providers Care Retail General Manager Name Role Phone Name, Kiel BAILEY Primary Care Provider [phone] Katlyn Rodriguez PharmD Unavailable Nehal Ann RN Unavailable [phone] Ania Spencer Unavailable Reason for Visit * Reason Onset Date Comments Nurse Triage 07/04/2024 Encounter Details Date Type Department Care Team (Late st Contact Info) Description 07/04/2024 Telephone [facility] MEDICINE [address] [place], [place] [phone] Name, MD Kiel [address] [place], [place] [phone] Nurse Triage Social History Tobacco Use Types [...] EDT Triage call with [facility] At Risk Specialist [place] [id number]. Pt reports headache over the entire head. No involvement with eye area. BP is 104/60. Pt has been seen by neurologist at [facility] and is being tested for possible tumor. Pt was prescribed dexamethasone byneurologist. Pt pain is moderate . Pt has been prescribed roxicodone 10mg starting 06/28/24 but, reports pharmacy wouldn't fill prescription last time contacted. Pt daughter is speaking for Pt at this time. Daughter is advised to call [facility] for prescription of roxicodone which [...] caller accepted this outcome. Contact pt at [phone] (lithuanian) documented in this encounter Plan of Treatment Upcoming Encounters Date Type Department Care Team ([facility] st Contact Info) Description 10/29/2024 9:30 AM EDT Medication Management [address] [address] Puia, Katlyn, PharmD [address] [place] [address] 11/15/2024 11:30 AM EDT Clinical Support [address] [address] Opal Steiner RN documented as of this [...] documented as of this encounter Care Teams Retail General Manager Relationship Specialty Start Date End Date Name, MD Kiel [address] [place] [address] PCP - General Family Medicine 07/15/15 Katlyn Rodriguez PharmD [address] [place] [address] Pharmacist Internal Medicine 10/08/22 Nehal Ann, MARINA [address] [place] [address] Registered Nurse Family Medicine 08/20/24 Ania Spencer 08/20/24 Marta Ovalle Quitline CounselorFnp 05/25/23 documented as of this encounter
--- OUTSIDE RECORDS SUMMARY | 2024-10-17 10:07 | XMS_ITS | Encounter Summary ---
Author Organization [employer] Address [address] [place] [address] 7t [place] [address] Care Team Providers Care Ordnance Truck Installation Mechanic Name Role Phone Name, Kiel BAILEY Primary Care Provider [phone] Katlyn Rodriguez PharmD Unavailable Nehal Ann RN Unavailable [phone] Ania Spencer Unavailable Reason for Visit * Reason Comments Med Refill Encounter Details Date Type Department Care Team (Late st Contact Info) Description 04/25/2022 Refill [facility] MEDICINE [address] [place], [place] [phone] Name, MD Kiel [address] [place], [place] [phone] Diabetes mellitus type 2 in obese (CMS/HCC) [...] Description 10/29/2024 9:30 AM EDT Medication Management [address] [address] Katlyn Rodriguez PharmD [address] [place] [address] 11/15/2024 11:30 AM EDT Clinical Support [address] [address] Opal Steiner, MARINA documented as of this encounter Visit Diagnoses Diagnosis Diabetes mellitus type 2 in obese- Primary Type II or unspecified type diabetes mellitus without mention of complication, not stated as uncontrolled documented in this encounter Care Teams Ordnance Truck Installation Mechanic Relationship Specialty Start Date End Date Name, MD Kiel [address] [place] [address] PCP - General Family Medicine 07/15/15 Katlyn Rodriguez PharmD [address] [place] [address] Pharmacist Internal Medicine 10/08/22 Nehal Ann, MARINA [address] [place] [address] Registered Nurse Family Medicine 08/20/24 Ania Spencer 08/20/24 Marta Ovalle Specifications CheckerPot Washer 05/25/23 documented as of this encounter
--- OUTSIDE RECORDS SUMMARY | 2024-10-17 10:07 | XMS_ITS | Encounter Summary ---
Author Organization [employer] Address [address] [place] [address] 7t [place] [address] Care Team Providers Care Automotive Assembler Name Role Phone Name, Kiel BAILEY Primary Care Provider [phone] Katlyn Rodriguez PharmD Unavailable [phone] Nehal Ann RN Unavailable [phone] Ania Spencer Unavailable Reason for Visit * Reason Comments Med Refill Encounter Details Date Type Department Care Team ([facility] Contact Info) Description 02/10/[address] [facility] CHC MED & PEDS [address] [place] [address] Name, MD Kiel [address] [place] [address] Chronic pain syndrome (Primary Dx) Social History [...] Description 10/29/2024 9:30 AM EDT Medication Management [address] [address] Katlyn Rodriguez PharmSusan [address] [place] [address] 11/15/2024 11:30 AM EDT Clinical Support [address] [address] Opal Steiner, MARINA documented as of this encounter Visit Diagnoses Diagnosis Chronic pain syndrome- Primary documented in this encounter Care Teams Automotive Assembler Relationship Specialty Start Date End Date Name, MD Kiel [address] [place] [address] PCP - General Family Medicine 07/15/15 Katlyn Rodriguez, Bin [address] [place] [address] Pharmacist Internal Medicine 10/08/22 Nehal Ann, MARINA [address] [place] [address] Registered Nurse Family Medicine 08/20/24 Ania Spencer 08/20/24 Marta Ovalle Net MakerBox Tender 05/25/23 documented as of this encounter
--- OUTSIDE RECORDS SUMMARY | 2024-10-17 10:07 | XMS_ITS | Encounter Summary ---
Author Organization [employer] Address [address] [facility] 7t [place] [address] Care Team Providers Care Education And Training Manager Name Role Phone Name, Kiel BAILEY Primary Care Provider [phone] Katlyn Rodriguez PharmD Unavailable [phone] Nehal Ann RN Unavailable [phone] Ania Spencer Unavailable Reason for Visit * Reason Onset Date Comments Reschedule 08/01/2023 Encounter Details Date Type Department Care Team (Late st Contact Info) Description 08/01/2023 Telephone [facility] MEDICINE [address] [place], [place] [phone] Name, MD Kiel [address] [place], [place] [phone] Reschedule Social History Tobacco Use Types Packs/Day [...] housing situation today? I have shirin renetta 12/06/[address] you li [...] 08/01/2023 9:55 AM EDT Triage call with [place] [facility] [place] [facility] ID [id number] . Pt reports Covid + test this [...] 08/01/2023 9:04 AM EDT Patient cancelled todays QUALITY ASSURANCE PROJECT MANAGER RV appt today. Pt's QUALITY ASSURANCE PROJECT MANAGER appt has been rescheduled for chronic [...] AM EDT Tc from pt requesting r/s QUALITY ASSURANCE PROJECT MANAGER appt, stated is sick and suspect is COVID documented in this encounter Plan of Treatment Upcoming Encounters Date Type Department Care Team (Late st Contact Info) Description 10/29/2024 9:30 AM EDT Medication Management [facility] MEDICINE [address] [place] [address] Katlyn Rodriguez, AngieD [address] [place] [address] 11/15/2024 11:30 AM EDT Clinical Support [facility] MEDICINE [address] [place] [address] Opal Steiner, RN documented as of this [...] documented as of this encounter Care Teams Education And Training Manager Relationship Specialty Start Date End Date Name, MD Kiel [address] [place] [address] PCP - General Family Medicine 07/15/15 Puia, Katlyn, PharmD [address] [place] [address] Pharmacist Internal Medicine 10/08/22 Nehal Ann, MARINA [address] [place] [address] Registered Nurse Family Medicine 08/20/24 Ania Spencer 08/20/24 Marta Ovalle Oncology RnSubstation Inspector 05/25/23 documented as of this encounter
--- OUTSIDE RECORDS SUMMARY | 2024-10-17 10:07 | XMS_ITS | Clinical Summary ---
Author Organization [facility] Address [address] [place] [address] Phone Care Team Providers Care Wire Wrapper Machine Operator Name Role Phone Name, Kiel BAILEY Primary Care Provider [phone] Allergies Active Allergy Reactions Criticality Noted Date [...] Problem Noted Date Diagnosed Date COPD exacerbation ([facility] V24, [facility] V28) Abnormal nuclear stress test 11/06/2014 Rib fracture 12/24/2013 Overview (12/12/2023): Non displaced, probable froacture on the right ninth and tenth Abdominal pain 08/15/2013 Lipoma of abdominal wall 11/02/2011 Visual field defect 03/29/2011 Cocaine abuse, episodic use ([facility] V24, [facility] V28) 06/17/2010 Low back pain radiating to left leg 10/08/2009 Overview (12/12/2023): The patient follows with [facility] and is treated with injections to the LS. Asthmatic bronchitis , chronic ([facility] [place], [facility] V28) 07/07/2009 Overview (12/12/2023): Severe and worse in the spring. Last hospitalazion in May and 3 ER visits Hospital 08/02 Known medical problems 06/05/2009 Tobacco use disorder 06/05/2009 Hypertriglyceridemia 06/05/2009 Morbid obesity ([facility] V24, [facility] V28) 2009 Overview (12/12/2023): BMI 48.37 on 11/15/13 Depression 06/05/2009 Encounters Date Type Department Care Team Description 08/27/2024 9:45 AM EDT Office Visit Orthopedic Surgery - [place] [address] [place] [phone] Wesley Garcia, DPM Dermatophytosis of nail (Primary Dx); Pain in toe of right foot; Pain in toe of left foot; Diabetic mononeuropathy simplex ([facility] V24, [facility] V28); Tinea pedis of both feet from Last 3 Months Immunizations Name Administration [...] TOTAL HYSTERECTOMY WITH BSO; COMMENT: for bleeding, [facility] Medical History Medical History Date Comments Type II or unspecified type diabetes mellitus with unspecified complication, not stated as uncontrolled DX:Type II or unspecified t ype diabetes mellitus with unspecified complication, not stated as uncontrolled Unspecified essential hypertension DX:Unspecified essential hypertension Tobacco abuse DX:Tobacco abuse RAD (reactive airway disease) DX :RAD (reactive airway disease) Morbid obesity ([facility] V24, [facility] V28) DX:Morbid obesity ([facility]) Asthmatic bronchitis , chron ic ([facility] V24, [facility] V28) 07/07/2009 DX:Asthmatic bronchitis , ch ronic ([facility]) Hypertriglyceridemia 06/05/2009 DX:Hypertri glyceridemia Rib fracture 12/24/2013 DX:Rib fracture Family History Medical History Relation Name Comments Blindness Brother 1 Breast cancer Maternal Grandmother Cataracts Maternal Grandmother Blindness Mother Glaucoma Neg Hx Macular degeneration Neg Hx Strabismus Neg Hx Relation Name Status Comments Brother 1 Brother 2 IN Brother 3 Alive 6 brothers are diabetic [...] 82 02/06/2024 7:50 AM EST Temperature 36.1 C (97 F) 02/06/2024 7:50 AM EST Respiratory Rate 20 [...] AM EDT Office Visit Orthopedic [facility] [place] [address] [place] [address] [place] [phone] Wesley Garcia DPM [address] [place] [address] Health Maintenance Due Date Last Done Comments [...] 03/13/2021, 08/18/2020, Additional history exists Depression Screening 02/22/2024 Influenza Vaccine (#1) 2024 , 11/05/2022, 11/13/2021, Additional history exists Diabetes: Blood Sugar Control Test (HGBA1C) 12/29/2024 06/28/2024, 03/27/2024, 02/01/2024, Additional history exists Diabetes: Annual GFR (Glomerular Filtration Rate) 02/05/2025 02/06/2024, 02/05/2024, 11/20/2014 Hypertension/CHF/CAD Annual BMP Blood Test 02/05/2025 02/06/2024, 02/05/2024, 11/20/2014 Cholesterol Screening (Lipid Panel) 10/24/2028 10/25/2023, 05/10/2014 DTaP,Tdap,and Td Vaccines (5 - Td or Tdap) 03/30/2034 03/30/2024, 11/13/2021, 10/22/2021, Additional history exists RSV Immunization Adult Patients (1 - 1-dose 75+ series) 2040 Hepatitis C Screening Completed 10/10/2013 Zoster Vaccines Completed 04/01/2022, 05/06/2021 Pneumococcal Vaccine: 50+ Years Completed 10/08/2022, 02/05/2018, 10/03/2013, Additional history exists Hepatitis B Vaccines Completed 11/05/2022, 10/09/19 23 HIB Vaccines Aged Out No longer eligi [...] LAB CHEMISTRY METHOD 02/06/2024 3:36 AM EST [facility] Potassium 4.1 3.5 - 5.5 mmol/L LAB CHEMISTRY METHOD 02/06/2024 3:36 AM EST [facility] Chloride 104 96 - 110 mmol/L LAB CHEMISTRY METHOD 02/06/2024 3:36 AM EST [facility] CO2 23 21 - 32 mmol/L LAB CHEMISTRY METHOD 02/06/2024 3:36 AM EST [facility] Anion Gap 9 3 - 11 LAB CHEMISTRY METHOD 02/06/2024 3:36 AM [facility] Glucose 244(H) 70 - 100 mg/dL LAB CHEMISTRY METHOD 02/06/2024 3:36 AM [facility] BUN 17 5 - 25 mg/dL LAB CHEMISTRY METHOD 02/06/2024 3:36 AM [facility] Creatinine 0.71 0.50 - 1.10 mg/dL LAB CHEMISTRY METHOD 02/06/2024 3:36 AM [facility] eGFR 99 >=60 mL/min/1. 73m2 LAB CHEMISTRY METHOD 02/06/2024 3:36 AM [facility] Comment:Calculation based on the Chronic Kidney Disease Epidemiology Collaboration (CKD-EPI) equation refit without adjustment for race. BUN/Creatinine Ratio 23.9 LAB CHEMISTRY METHOD 02/06/2024 3:36 AM [facility] Calcium 9.3 8.5 - 10.5 mg/dL LAB CHEMISTRY METHOD 02/06/2024 3:36 AM [facility] Blood Venous blood specimen / Unknown Venipuncture / Unknown 02/06/2024 2:59 AM EST 02/06/2024 3:13 AM EST us Cindy SEGURA LAB BLOOD ORDERABLES Final R esult [facility] [address] [place] [address], * (ABNORMAL) Hemoglobin A1c (11/20/2014) Hemoglobin A1C 7.5(A) 4.0 - 6.0 % Blood Venous blood specimen / Unknown us Historical Provider LAB BLOOD ORDERABLES Alis l Result * Urine Albumin Creatinine Ratio (05/10/2014) Urine Albumin Creatinine Ratio abstracted Historical Provider HEALTH MAINTENANCE Final Result * (ABNORMAL) Lipid panel (05/10/2014) LDL/HDL Ratio 4 0 - 4 Triglycerides 360(A) 0 - 150 mg/dL Cholesterol 179 0 - 200 mg/dL HDL 42 >=40 mg/dL LDL Cholesterol 65 0 - 100 mg/dL Blood Venous blood specimen / Unknown [facility] Provider LAB BLOOD ORDERABLES Alis l Result * Hepatitis C Screening (10/10/2013) Hepatitis C Screening abstracted [facility] Provider HEALTH MAINTENANCE Final Result from Last [...] currently active code status orders. Care Teams Wire Wrapper Machine Operator Relationship Specialty Start Date End Date Name, MD Kiel [address] [place], [place] PCP - General Internal Medicine 7/7/16
--- OUTSIDE RECORDS SUMMARY | 2024-10-17 10:07 | XMS_ITS | Encounter Summary ---
Author Organization [employer] Address [address] [facility] [address] [place] [address] Care Team Providers Care Senior Scientist Name Role Phone Name, Kiel BAILEY Primary Care Provider [phone] Katlyn Rodriguez PharmD Unavailable [phone] Nehal Ann RN Unavailable [phone] Ania Spencer Unavailable Encounter Details Date Type Department Care Team ([facility] Contact Info) Description 08/26/2022 Orders Only [facility] [address] [place] [address] Leia Gonzales LPN Social History Tobacco Use [...] Team ([facility] Contact Info) Description 10/29/2024 9:30 AM EDT Medication Management [address] [address] Katlyn Rodriguez PharmD [address] [place] [id number] 11/15/2024 11:30 AM EDT Clinical Support [address] [address] Opal Steiner, RN documented as of this encounter Visit Diagnoses Not on filedocumented in this encounter Additional Health Concerns Assessment Noted Time PHQ-9 Depression Total Score: 7 07/15/19 23 2:39 PM EDT documented as of this encounter Care Teams Senior Scientist Relationship Specialty Start Date End Date Name, MD Kiel [address] [place] [phone] PCP - General Family Medicine 07/15/15 Katlyn Rodriguez, Bin [address] [place] [phone] Pharmacist Internal Medicine 10/08/22 Nehal Ann, MARINA [address] [place] [phone] Registered Nurse Family Medicine 08/20/24 Ania Spencer 08/20/24 Marta Ovalle Licensed ClinicianTube Coverer 05/25/23 documented as of this encounter
--- OUTSIDE RECORDS SUMMARY | 2024-10-17 10:07 | XMS_ITS | Clinical Summary ---
Author Organization [employer] Address [address] [place] [address] [address] [place] [address] Care Team Providers [facility] Name Role Phone Name, Kiel BAILEY Primary Care Provider [phone] Katlyn Rodriguez PharmD Unavailable Nehal Ann RN Unavailable [phone] Ania Spencer Unavailable Allergies Active Allergy Reactions Criticality Noted [...] Active nitroglycerin (Nitrostat) 0.4 MG SL tablet 023 Active Advair HFA 115-21 MCG/ACT inhaler 023 Active furosemide (Lasix) 20 MG tablet Take 20 mg by mouth in the morning. 023 Active pyridoxine (Vitamin B-6) 100 MG tablet Take 100 mg by mouth in the morning. 023 Active Blood Pressure Monitor kitIndications: Essential hypertension Use to check blood pressure daily 1 kit 024 Active acetaminophen (Tylenol 8 Hour) 650 MG ER tablet TAKE 1 TABLET BY MOUTH EVERY 8 HOURS NEEDED FOR MILD PAIN DO NOT BREAK, CRUSH, DISSOLVE OR CHEW 90 tablet 1 024 Active Alcohol Swabs (Alcohol Prep) 70 % pads USE DIRECTED TWICE DAILY 100 each 5 024 Active OXcarbazepine (Trileptal) 150 MG tablet [...] or chew. 90 tablet 3 025 Active cloNIDine (Catapres) 0.1 MG tabletIndicatio ns:Psychophysio logical insomnia TAKE 1 TABLET BY MOUTH AT BEDTIME 30 tablet 1 025 Active PARoxetine (Paxil) 40 MG tablet TAKE 1 TABLET BY MOUTH AT BEDTIME 30 tablet 025 Active OXcarbazepine (Trileptal) 300 MG tablet Take 1.5 tablets (450 mg) by mouth at bedtime. 45 tablet 3 025 Active albuterol 108 (90 Base) MCG/ACT inhalerIndicati ons:Moderate asthma with exacerbation, unspecified whether persistent Inhale 2 puffs Every 4-6 hours as needed for wheezing. 18 g 5 025 2025 Active Tirzepatide (Mounjaro) 15 MG/0.5ML solution auto-injectorIn dications:Type 2 diabetes mellitus with other specified complication, with long-term current use of insulin ([facility]) Inject 15 mg under the skin 1 (one) time per week. 2 mL Active traZODone (Desyrel) 100 MG tablet Take 100 mg by mouth if needed at bedtime for sleep. Active ezetimibe (Zetia) 10 MG tabletIndicatio ns:Type 2 diabetes mellitus with other specified complication, with long-term current use of insulin ([facility]) TAKE 1 TABLET BY MOUTH EVERY MORNING 30 tablet 11 Active cetirizine (ZyrTEC) 10 MG tablet TAKE 1 TABLET BY MOUTH EVERY MORNING 90 tablet 1 Active lidocaine (Lidoderm) 5 % patch APPLY 1 PATCH TOPICALLY TO SKIN, LEAVE ON FOR 12 HOURS AND OFF FOR 12 HOURS DIRECTED NEEDED FOR MILD PAIN 30 patch 3 Active rosuvastatin (Crestor) 40 MG tabletIndicatio ns:Type 2 diabetes mellitus with other specified complication, with long-term current use of insulin ([facility]),Histo ry of stroke,Tobacco use disorder,Hypert riglyceridemia Take 1 tablet (40 mg) by mouth Once per day. 90 tablet 1 Active gabapentin (Neurontin) 800 MG tablet Take 1 tablet (800 mg) by mouth 3 times daily. 90 tablet 025 2025 Active famotidine (Pepcid) 20 MG tablet TAKE 1 TABLET BY MOUTH TWICE DAILY IN THE MORNING AND IN THE EVENING 180 tablet Active aspirin 81 MG chewable tabletIndicatio ns:Type 2 diabetes mellitus with other specified complication, with long-term current use of insulin ([facility]) Chew 1 tablet (81 mg) in the evening. 90 tablet 3 025 Active metFORMIN XR (Glucophage-XR) 500 MG 24 hr tabletIndicatio ns:Type 2 diabetes mellitus with obesity (CMS/HCC) ([facility]) Take 1 tablet (500 mg) by mouth at bedtime. 90 tablet 3 025 Active losartan (Cozaar) 50 MG tabletIndicatio ns:Essential hypertension TAKE 1 TABLET BY MOUTH EVERY MORNING 90 tablet 025 Active meloxicam (Mobic) 7.5 MG tablet TAKE 1 TABLET BY MOUTH ONCE DAILY 30 tablet 11 025 Active oxyCODONE (Roxicodone) 10 MG immediate release tabletIndicatio ns:Cerebellar mass,Chronic intractable headache, unspecified headache type Take 1 tablet (10 mg) by mouth 3 times daily for 28 days. Do not start before September 21, 2024. 84 tablet 025 2024 Active TechLite Pen [place] 32G X 4 MM miscIndications :Type 2 diabetes mellitus with other specified complication ([facility]) USE DIRECTED FOUR TIMES DAILY 100 each 025 Active Blood Glucose Monitoring Suppl (FreeStyle Lite) deviceIndicatio ns:Type 2 diabetes mellitus with other specified complication, with long-term current use of insulin ([facility]) Inject 1 each under the skin 2 times daily. Use to test blood sugar as directed 1 each 025 Active glucose blood (FREESTYLE LITE) test stripIndication s:Type 2 diabetes mellitus with other specified complication, with long-term current use of insulin ([facility]) Use to test blood sugar 2 times daily 50 strip Active TRUEplus Lancets 33G miscIndications :Type 2 diabetes mellitus with other specified complication, with long-term current use of insulin ([facility]) Use to test blood sugar twice daily as directed 100 each 025 Active insulin glargine (Lantus SoloStar) 100 UNIT/ML penIndications: Type 2 diabetes mellitus with other specified complication, with long-term current use of insulin ([facility]) Inject 40 Units under the skin at bedtime. 15 mL 5 025 Active lidocaine (Lidoderm) 5 % patchIndication s:Nondisplaced fracture of right radial styloid process, initial encounter for closed fracture Apply 1 patch topically Once per day. Remove & discard patch within 12 hours or as directed by . 30 patch 1 08/19/2 025 Active albuterol (2.5 MG/3ML) 0.083% nebulizer solution INHALE 1 AMPULE USING A NEBULIZER EVERY 6 HOURS NEEDED FOR WHEEZING 75 mL 023 2024 Discontinued(M ed list cleanup (will not trigger notification to Pharmacy)) TechLite Plus Pen [place] 32G X 4 MM misc USE FOUR TIMES DAILY DIRECTED 100 each 024 2024 Discontinued Diclofenac Sodium 1 % gel Apply 2 g topically if needed in the morning, at noon, in the evening, and at bedtime (pain). 150 g 3 024 2024 Discontinued(M ed list cleanup (will not trigger notification to Pharmacy)) TRUEplus Lancets 33G miscIndications :Type 2 diabetes mellitus with other specified complication, with long-term current use of insulin ([facility]) Use to test blood sugar twice daily as directed 100 each 025 2024 Discontinued(R eorder (will not trigger notification to Pharmacy)) Continuous Glucose Sensor (FreeStyle Shira 3 Plus Sensor) miscIndications :Type 2 diabetes mellitus with other specified complication, with long-term current use of insulin ([facility]) Apply 1 every 15 days as directed for CGM 2 each 2024 Discontinued(P atient refused) glucose blood (FreeStyle Precision Dimitri Test) test stripIndication s:Type 2 diabetes mellitus with other specified complication, with long-term current use of insulin ([facility]) Use to test blood sugar up to 2 times daily, as directed 100 each 025 2024 Discontinued(A lternate therapy) insulin glargine (Lantus SoloStar) 100 UNIT/ML penIndications: Type 2 diabetes mellitus with other specified complication, with long-term current use of insulin ([facility]) Inject 38 units subQ once daily. Increase, as directed, to max of 50 units per day for FBGs persistently >140 mg/dL w/o hypoBG < 70 mg/dL. 15 mL 5 025 2024 Discontinued(R eorder (will not trigger notification to Pharmacy)) oxyCODONE (Roxicodone) 10 MG immediate release tabletIndicatio ns:Cerebellar mass,Chronic intractable headache, unspecified headache type Take 1 tablet (10 mg) by mouth 3 times daily for 14 days. Do not start before September 07, 2024. 42 tablet 025 2024 Discontinued(R eorder (will not trigger notification to Pharmacy)) ibuprofen 600 MG tablet Take 1 tablet (600 mg) by mouth every 8 (eight) hours if needed for mild pain or moderate pain. 30 tablet 025 2024 Discontinued(R eorder (will not trigger notification to Pharmacy)) ibuprofen 600 MG tabletIndicatio ns:Chronic intractable headache, unspecified headache type Take 1 tablet (600 mg) by mouth every 8 (eight) hours if needed for mild pain or moderate pain. 30 tablet 025 2024 Discontinued(A lternate therapy) ciprofloxacin-h ydrocortisone (Cipro HC Otic) otic suspension Administer 3 drops into each ear 2 times daily for 7 days. 10 mL 025 2024 Active Problems Problem Noted Date Diagnosed Date Nondisplaced fracture of rig ht radial styloid process, initial encounter for closed fracture 10/09/2024 Assessment & Plan (10/09/2024 2:56 PM EDT): I added today lidocaine patch to apply 1 daily as needed I put a stat referral to orthopedics If pain is unbearable I advised her to go to the emergency room Non-recurrent acute suppurat riky otitis media of left ear without spontaneous rupture of tympanic membrane 09/03/2024 Long-term current use of opiate analgesic 2024 Other chest pain 08/17/2024 Assessment & Plan (08/17/2024 1:37 PM EDT): I do not suspect ACS, but in light of severe pain 10/10, patient seems to be very uncomfortable and is unable to take a deep breath, I decided to call EMS and sent her to the hospital Case was presented to [facility] emergency room Hemiparesis of left dominant side 08/11/2024 Assessment & Plan (08/17/2024 1:36 PM EDT): Patient will benefit from PT evaluation and after evaluation at the hospital to be referred to acute PT center Cerebrovascular accident (CVA) 08/11/2024 History of stroke 07/30/2024 Cerebellar mass 06/28/2024 Chronic, continuous use of opioids 11/29/2023 Overview (11/29/2023): Dx: OA knee Tx: oxycodone 10mg BID [employer]TE[employer]CE [employer]IC last signed: 05/03/23 Chronic pain syndrome 05/03/2023 [...] specified co mplication 04/06/2023 Assessment & Plan (09/05/2024 9:40 PM EDT): - Hyperglycemia today post hot chocolate, recent hgb A1c at goal , pt denies concerns re glucose management - A1c 6.7% on 09/05/24 Assessment & Plan (04/06/2023 5:49 PM EST): Hyperglycemia today post hot chocolate, recent hgb A1c at goal , pt denies concerns re glucose management Chronic obstructive pulmonary disease, unspecifi ed 03/24/2023 Assessment & Plan (03/24/2023 3:47 PM EST): I presented the case to [facility] emergency room, patient will go by ambulance [...] expected Tubular adenoma 05/12/2021 Gait instability 02/05/2019 Assessment & Plan (08/17/2024 1:36 PM EDT): Patient will benefit from PT evaluation Memory deficit 02/05/2019 Assessment & Plan (04/06/2023 5:46 PM EST): Pt reports epidsode of confusion in [facility], declines neuro referral today, reviewed s.s requiring [...] salves Essential hypertension 08/05/2015 Assessment & Plan (10/09/2024 2:56 PM EDT): Patient did not took her blood pressure medication today advised to take her medication every day without missing any dose, I also advised low-sodium diet Assessment & Plan (09/05/2024 12:11 PM EDT): Above goal today, clonidine may slightly lower bp temporarily, pt is in care with cardiology, denies chest pain pressure or palpitations Assessment & Plan (04/06/2023 5:48 PM EST): Above goal today, clonidine may slightly lower bp temporarily, pt is in care with cardiology, denies chest pain pressure or palpitations H/O: hysterectomy 08/05/2015 Knee pain 08/05/2015 Lipoma of abdominal wall 11/02/2011 Obstructive sleep apnea syndrome 01/19/2011 Overview (06/28/2024): Does not tolerate CPAP On nocturnal oxygen Follows with [facility] pulmonary ([place]) Cocaine abuse, episodic use 06/17/2010 [...] Cervical lymphadenopathy 08/28/202009/2024 Cellulitis of neck 08/06/2020 5 Neck swelling 12/04/2019 06/28/2024 COVID-19 virus infection 07/06/201909/2024 Assessment & Plan (08/04/2023 11:18 AM EDT): -Pt is on Day 2 following initiation of symptoms and positive COVID-19 test at home -Renal fx: eGFR > 60 (May 2023) -Prescription for Paxlovid sent to the pharmacy -Utilized [place] drug interaction unloading checker to assess interactions with current med [...] Seizure 11/18/2017 06/28/2024 Anterior knee pain 10/20/2016 5 Mesenteric lymphadenitis 05/10/201609/2024 Asthma 08/05/2015 06/28/2024 Abnormal nuclear stress test 11/06/2014 06/28/2024 Rib fracture 12/24/2013 06/28/2024 Overview (07/14/2022): Non displaced, probable froacture on the right ninth and tenth Visual field defect 03/29/2011 06/29/19 Insomnia 01/07/2011 06/28/2024 Assessment & Plan (04/06/2023 [...] Encounters Date Type Department Care Team Description 10/16/2024 Patient Outreach [facility] [address] [place] [address] Kiel Shaffer MD 10/09/2024 2:00 PM EDT Office Visit [facility] [address] [place] [id number] Sarita Baker MD Essential hypertension (Primary Dx); Nondisplaced fracture of right radial styloid process, initial encounter for closed fracture 10/09/2024 Travel 10/09/2024 Telephone [facility] [address] [place] [phone] Kiel Shaffer MD ER Follow-up; Nurse Triage 10/09/2024 Telephone [facility] [address] [place] [id number] Kiel Shaffer MD No Show 10/06/2024 Orders Only [facility] External Provider, [facility] 10/05/2024 Telephone [facility] [address] [place] [phone] Kiel Shaffer MD Referral 10/04/2024 Patient Outreach [address] [address] Kiel Shaffer MD Care Management ([facility] TC #2-lvm) 10/02/2024 10:40 AM EDT Office Visit [facility] [address] [place] [address] Victorino Graves MD Acute otitis externa of left ear, unspecified type (Primary Dx) 10/02/[address] [address] Kiel Shaffer MD 10/02/2024 Travel 09/28/2024 Refill [facility] [address] [place] [phone] Kiel Shaffer MD Type 2 diabetes mellitus with other specified complication ([facility]) 09/21/2024 Patient Outreach [address] [address] Kiel Shaffer MD Care Management ([facility] TC #1-lvm) 09/19/2024 9:00 AM EDT Clinical Support [address] [address] Opal Steiner, RN Long-term current use of opiate analgesic (Primary Dx) 09/19/2024 Refill [facility] [address] [place] [phone] Opal Steiner, RN Cerebellar mass; Chronic intractable headache, unspecified headache type 09/19/2024 Travel 09/12/2024 Refill [facility] [address] [place] [phone] Kiel Shaffer MD 09/10/[address] [address] Katlyn Rodriguez, PharmD Essential hypertension 09/06/2024 Orders Only [facility] [address] [place] [phone] Lizzie Alfaro NP Left arm weakness (Primary Dx) 09/06/2024 Orders Only [facility] [address] [place] [phone] Lizzie Alfaro NP Weakness of both lower extremities (Primary Dx); Hemiparesis of left dominant side as late effect of cerebral infarction (CMS/HCC) 09/06/[address] [address] Kiel Shaffer MD PT Order 09/06/[address] [address] Kiel Shaffer MD Requesting Call Back 09/05/2024 11:30 AM EDT Office Visit [address] [address] Sravanthi Robbins MD Type 2 diabetes mellitus with other specified complication, with long-term current use of insulin ([facility]) (Primary Dx); Left ear pain; Impacted cerumen of right ear; Excessive cerumen in ear canal, left; Essential hypertension; Dietary counseling; Exercise counseling; Class 3 severe obesity due to excess calories with serious comorbidity and body mass index (BMI) of 40.0 to 44.9 in adult 09/05/[address] [address] Kiel Shaffer MD Medication Question; Prior Authorization 09/05/2024 Patient Outreach [facility] [address] [place] [address] Kiel Shaffer MD 09/05/2024 Travel 09/05/[address] [address] Kiel Shaffer MD Prior Authorization 09/05/[address] [address] Kiel Shaffer MD Nurse Triage 09/04/2024 Plan of Care Documentation [address] [address] 09/04/[address] [address] Kiel Shaffer MD Cerebellar mass; Chronic intractable headache, unspecified headache type 09/04/2024 Patient Outreach [facility] [address] [place] [address] Kiel Shaffer MD Care Coordination ([facility] initial assessment/ enrollment) 09/04/2024 Patient Outreach [facility] [address] [place] [address] Kiel Shaffer MD 09/03/2024 5:40 PM EDT Office Visit [facility] [address] [place] [address] Sergio Troy MD Non-recurrent acute suppurative otitis media of left ear without spontaneous rupture of tympanic membrane (Primary Dx) 09/03/2024 Orders Only [facility] [address] [place] [address] Sergio Troy MD 09/03/2024 Travel 08/30/2024 Telephone [facility] [address] [place] [phone] Kiel Shaffer MD Referral 08/29/2024 Telephone [facility] [address] [place] [address] Kiel Shaffer MD Medication Question 08/22/2024 Refill [facility] [address] [place] [phone] Katlyn Rodriguez PharmD Type 2 diabetes mellitus with other specified complication, with long-term current use of insulin (CMS/HCC); Type 2 diabetes mellitus with obesity (CMS/HCC) (CMS/HCC) 08/22/2024 Patient Outreach [facility] [address] [place] [address] Kiel Shaffer MD 08/22/2024 Refill [facility] [address] [place] [id number] Kiel Shaffer MD Urticaria 2024 Patient Outreach [facility] [address] [place] [address] Kiel Shaffer MD Care Coordination (C3/CM Outreach) 2024 Refill [facility] [address] [place] [phone] Katlyn Rodriguez PharmD Type 2 diabetes mellitus with other specified complication, with long-term current use of insulin (CMS/HCC); Type 2 diabetes mellitus with obesity (CMS/HCC) (CMS/HCC) 08/20/2024 1:45 PM EDT Office Visit [facility] [address] [place] [phone] Kiel Shaffer MD Thalamic pain syndrome (Primary Dx) 08/20/2024 Travel 08/20/2024 Patient Outreach [facility] [address] [place] [address] Kiel Shaffer MD Care Coordination (C3/CM Chart Review) 08/20/[address] [address] Kiel Shaffer MD Appointment Request 08/20/[address] [phone] Kiel Shaffer MD ER Follow-up 08/20/[address] [address] Opal Steiner, MARINA 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 08/20/2024 Patient Outreach [facility] [address] [place] [address] Kiel Shaffer MD Care Coordination (C3CM Chart review) 08/20/2024 Patient Outreach [address] [address] Kiel Shaffer MD 08/17/2024 9:20 AM EDT Office Visit [facility] [address] [place] [phone] Sarita Baker MD Other chest pain; Gait instability; Hemiparesis of left dominant side as late effect of cerebral infarction (CMS/HCC) 08/17/[address] [address] Kiel Shaffer MD Referral 08/17/[address] [phone] Sarita Baker MD Nurse Triage 08/17/2024 Travel 08/16/[address] [phone] Katlyn Rodriguez, AngieD Prior Authorization (CGM; Shira 3) 08/16/2024 Travel 08/15/2024 9:30 AM EDT Clinical Support [address] [phone] Meghan Ramirez, MARINA Bilateral impacted cerumen 08/15/2024 Travel 08/15/2024 Refill [facility] [address] [place] [phone] Victorino Graves MD 08/13/2024 Telephone [facility] [address] [place] [phone] Renetta Power, MARINA 08/11/2024 9:20 AM EDT Office Visit [facility] [address] [place] [phone] Kiel Shaffer MD Hemiparesis of left dominant side, unspecified hemiparesis etiology (CMS/HCC) (Primary Dx); Dizziness; Frequent falls; Cerebrovascular accident (CVA), unspecified mechanism (CMS/HCC); Bilateral impacted cerumen 08/11/2024 Travel 08/07/[address] [address] Kiel Shaffer MD Nurse Triage 08/07/[address] [address] Kiel Shaffer MD Cerebellar mass; Chronic intractable headache, unspecified headache type 08/06/2024 9:30 AM EDT Office Visit [address] [address] Lizzie Alfaro NP Hospital discharge follow-up (Primary Dx); Hemiparesis of left dominant side, unspecified hemiparesis etiology (CMS/HCC); Wheezing; Frequent falls; Nonintractable headache, unspecified chronicity pattern, unspecified headache type 08/06/[address] [address] Barbara Martinez MA october recalls 08/06/2024 Travel 08/03/[address] [address] Kiel Shaffer MD FYI 08/03/[address] [address] Kiel Shaffer MD Referral 08/03/[address] [address] Kiel Shaffer MD FYI 08/03/2024 Patient Outreach [facility] [address] [place] [address] Kiel Shaffer MD 08/02/2024 Patient Outreach [facility] [address] [place] [address] Kiel Shaffer MD Transition Of Care (Tcm) (HDF scheduled. ) 08/02/2024 Telephone [facility] [address] [place] [address] Kiel Shaffer MD Hospital Follow-up 07/30/2024 9:00 AM EDT Office Visit [facility] [address] [place] [phone] Lizzie Alfaro NP Shortness of breath (Primary Dx); Left arm weakness; History of stroke 07/30/2024 Orders Only [facility] External Provider, [facility] 07/30/2024 Travel 07/27/2024 10:00 AM EDT Office Visit [facility] [address] [place] [phone] Kiel Shaffer MD COPD exacerbation (CMS/[facility]) (Primary Dx); Type 2 diabetes mellitus with other specified complication, with long-term current use of insulin (CMS/HCC); Cerebellar mass 07/27/2024 Travel 07/26/2024 Telephone [facility] [address] [place] [phone] Keely Leija MA Chart Prep 07/23/2024 Refill [facility] [address] [place] [phone] Yvonne Walls MD 07/22/2024 Refill [facility] [address] [place] [phone] Katlyn Rodriguez, Bin Type 2 diabetes mellitus with other specified complication, with long-term current use of insulin (CMS/HCC) from Last 3 Months Immunizations Immunization Administration Dates Next Due HepB-CpG 11/05/2022,10/08/2022 Influenza Injectable Quadriv alant Preservative Free IIV4 MDCK 11/05/2022 Influenza Whole 11/06/2010 Influenza injectable quadriv alent IIV4 with preservative 01/09/2016 Influenza injectable quadriv alent preservative free 11/13/2021,01/21/2021,01/07/2020,12/13,01/30/2018 Influenza, IIV3, injectable 02/03/2016,1 ,12/16/2013,02/23,11/02/2012,10/26/2011,01/13/2011 ,11/03/2010,11/21/2009 Influenza, seasonal, injecta ble, preservative free 11/29/2023 Novel Viymnaenz-[id number], all formulations 05/31/2009 Pneumococcal Conjugate PCV 20 10/08/2022 Pneumococcal Polysaccharide PPSV23 02/05/2018,,11/21/2009 Rabies - IM Fibroblast Culture 04/14/2024,2024,03/30/2024 TD (adult), 2 Lf tetanus tox oid, preservative free, adsorbed 11/13/2021,11/13/2021 Tdap 03/30/2024,10/22/2021,10/26/2011 Zoster, Recombinant 04/01/2022,05/06/2021 Social History Tobacco Use Types Packs/Day Years Used Date Smoking Tobacco: Every Day Cigarettes Passive Smoke Exposure: Past Smokeless Tobacco: Never Tobacco Cessation:Ready to Q uit: Not Asked; Counseling Given: Not Answered Alcohol Use Standard Drinks/Week [...] Sign Reading Time Taken Comments Blood Pressure 150/87 10/09/2024 2:08 PM EDT Pulse 87 10/09/2024 2:08 PM EDT Temperature 36.5 C (97.7 F) 10/09/2024 2:08 PM EDT Respiratory Rate 20 10/09/2024 2:08 PM EDT Oxygen Saturation 95% 10/09/2024 2:08 PM EDT Inhaled Oxygen Concentration - - Weight 109 kg (239 lb 9.6 oz) 10/09/2024 2:08 PM EDT Height 160 cm (5' 3 ) 09/05/2024 10:37 AM EDT Body Mass Index 42.44 09/05/2024 10:37 AM EDT Plan of Treatment Upcoming Encounters Date Type Department Care Team (Late st Contact Info) Description 10/29/2024 9:30 AM EDT Medication Management [facility] [address] [place] [id number] Katlyn Rodriguez, [address] [place] [address] 11/15/2024 11:30 AM EDT Clinical Support [facility] [address] [place] [id number] Opal Steiner, RN Health Maintenance Due Date Last Done Comments CT Colonography 1965 FIT DNA/Cologuard 1965 FIT 1965 FOBT 1965 HIV Screening 1965 Sigmoidoscopy 1965 Hepatitis C Screening 08/22/1983 Pap Smear 1986 HPV/Cotest 08/22/1995 COVID-19 Vaccine ( season) 2023 12/15/2021, 03/13/2021, 08/18/2020, Additional history exists Diabetes: Urine Protein Screening 05/25/2024 05/26/2023, 08/30/2022 Diabetes: Foot Exam 10/19/2024 10/20/2023, 10/20/2023, 10/20/2023, Additional history exists Influenza Vaccine (#1) 2024 , 11/05/2022, 11/13/2021, Additional history exists Eye Exam 12/16/2024 12/17/2023, 04/0 06/2022, 03/14/2012 Diabetes: Hemoglobin A1C 01/02/2025 025, 06/28/2024, 03/27/2024, Additional history exists Mammogram 06/02/2025 06/03/2023, 01/03/2019 Lipid Panel 06/18/2025 06/18/2024, 09/0 04/2023, 05/26/2023, Additional history exists Alcohol/Substance Use Screening 06/28/2025 06/28/2024 Disability Screening 07/27/2025 07/27/2024 SDOH Screening 2025 2024 Depression Screening 09/04/2025 09/04/2024, 09/05/19 25 Tobacco Screening 10/02/2025 10/02/2024 Colonoscopy 07/02/2027 07/01/2022 Colorectal Cancer Screening 07/02/2027 DTaP/Tdap/Td Vaccines (6 - Td or Tdap) 03/30/2034 03/30/2024, 11/13/2021, 11/13/2021, Additional history exists RSV Patients and Patients Aged 60 years or older (1 - 1-dose 75+ series) 2040 Zoster Vaccines Completed 04/01/2022, 05/06/2021 Pneumococcal Vaccine: 50+ Years Completed 10/08/2022, 02/05/2018, 10/03/2013, Additional history exists Hepatitis B Vaccines Completed 11/05/2022, 10/09/19 23 Cervical Cancer Screening Discontinued HIB Vaccines Aged [...] Name Priority Date/Time Associated Diagnosis Comments XR HAND 3+ VIEWS RIGHT Routine 5 5:17 PM EDT XR WRIST 3+ VIEWS RIGHT Routine 10/07/19 25 5:12 PM EDT POCT GLYCATED HEMOGLOBIN, TOTAL Routine 10/02/2024 11:12 AM EDT Type 2 diabetes mellitus with other specified complication, with long-term current use of insulin ([facility]) POCT KEELEY-14 URINE DRUG SCREEN Routine 09/19/2024 9:09 AM EDT Long-term current use of opiate analgesic [place] REMOVAL IMPACTED CERUMEN INSTRUMENTATION UNILAT Routine 09/05/2024 11:12 AM EDT Impacted cerumen of right ear Excessive cerumen in ear canal, left US RENAL BI Routine 08/22/2024 12:11 PM EDT ECG 12-LEAD Routine 2024 1:14 PM EDT Other chest pain CT HEAD WO CONTRAST Routine 08/17/2024 1 0:10 AM EDT XR FEMUR 2+ VIEWS RIGHT Routine 08/18/19 10:02 AM EDT XR LUMBAR SPINE 2-3 VIEWS Routine 08/17/2024 10:01 AM EDT XR CHEST 2 VIEWS Routine 08/17/2024 9:[address] HEAD WO CONTRAST Routine 08/02/2024 7 :[address] CERVICAL SPINE WO CONTRAST Routine 08/02/2024 7:26 AM EDT XR HIP 2 OR 3 VIEWS LEFT Routine 08/02/2024 7:02 AM EDT POCT COVID-19 AG CR ID NOW Routine 07/30/2024 9:11 AM EDT Shortness of breath POCT INFLUENZA A (ID NOW RAPID MOLECULAR) Routine 07/30/2024 9:11 AM EDT Shortness of breath POCT INFLUENZA B (ID NOW RAPID MOLECULAR) Routine 07/30/2024 9:11 AM EDT Shortness of breath XR CHEST 2 VIEWS Routine 07/30/2024 8:34 AM EDT Shortness of breath POCT GLUCOSE Routine 07/27/2024 10:21 AM EDT Type 2 diabetes mellitus with other specified complication, with long-term current use of insulin (CMS/HCC) LIPID PANEL WITH REFLEX TO DIRECT LDL Routine 06/18/2024 8:18 AM EDT BI MAMMOGRAM SCREENING TOMOSYNTHESIS BILATERAL [...] Relevant to Health Maintenance Results * XR Hand 3+ Views Right (10/06/2024 5:17 PM EDT) Anatomical Region Laterality Modality Upper Extremities, Hand Right Radiogra phic Imaging 10/06/2024 5:17 PM EDT Narrative 10/06/2024 5:18 PM EDT [place] [address] XRay Report Signed Patient: Sarita Puga MR#: [id number] 92 : 1965 Acct:[id number] Age/Sex: 59 / F ADM Date: 10/06/24 Loc: HO.ED Attending Dr: Ordering Physician: Justina Perez NP Date of Service: 10/06/24 Procedure(s): XR hand RT min 3V Accession Number(s): [id number] cc: Name,Kiel BAILEY; Justina Perez NP CLINICAL HISTORY: fall, pain 4 view right hand Comparison: None provided Findings: 4 mm avulsion fracture of the radial styloid with no significant displacement. Subtle cortical irregularity in the distal 5th metacarpal. No dislocation. Mild arthritic changes. No radiopaque foreign body. IMPRESSION: 1. Multifocal soft tissue swelling. 2. 4 mm avulsion fracture of the radial styloid with no significant displacement. 3. Equivocal for a subtle nondisplaced fracture of the distal 5th metacarpal. Is there point tenderness here? This document has been electronically signed by: Jojo Velasquez DO on 10/06/2024 17:17:27 Dictated By: Jojo Velasquez MD Signed By: <Electronically signed by Jojo Velasquez MD in OV> 10/06/241717 DD/ 16 TD/TT: 10/06/241716 Cisco Network Engineer: Procedure Note Donotuseinterpreter, Image - 10/06/2024 [place] [address] XRay Report Signed Patient: Sarita Puga MMR#: [id number] 92 : 1965Acct:[id number] Age/Sex: 59 / FADM Date: 10/06/24 Loc: HO.ED Attending Dr: Ordering Physician: Justina Perez NP Date of Service: 10/06/24 Procedure(s): XR hand RT min 3V Accession Number(s): [id number] cc: Name,Kiel BAILEY; Justina Perez NP CLINICAL HISTORY: fall, pain 4 view right hand Comparison: None provided Findings: 4 mm avulsion fracture of the radial styloid with no significant displacement. Subtle cortical irregularity in the distal 5th metacarpal. No dislocation. Mild arthritic changes. No radiopaque foreign body. IMPRESSION: 1. Multifocal soft tissue swelling. 2. 4 mm avulsion fracture of the radial styloid with no significant displacement. 3. Equivocal for a subtle nondisplaced fracture of the distal 5th metacarpal. Is there point tenderness here? This document has been electronically signed by: Jojo Velasquez DO on 10/06/2024 17:17:27 Dictated By: Jojo Velasquez MD Signed By: <Electronically signed by Jojo Velasquez MD in OV> 10/06/241717 DD/ 16 TD/TT: 10/06/241716 Cisco Network Engineer: [facility] External Provider IMG XR PROCEDURES Edited Result - Final * XR Wrist 3+ Views Right (10/06/2024 5:12 PM EDT) Anatomical Region Laterality Modality Upper Extremities, Wrist Right Radiogr aphic Imaging 10/06/2024 5:12 PM EDT Narrative 10/06/2024 5:14 PM EDT [address] [address] XRay Report Signed Patient: Sarita Puga MR#: [id number] 92 : 1965 Acct:[id number] Age/Sex: 59 / F ADM Date: 10/06/24 Loc: HO.ED Attending Dr: Ordering Physician: Justina Perez NP Date of Service: 10/06/24 Procedure(s): XR wrist RT min 3V Accession Number(s): [id number] cc: Name,Kiel BAILEY; Justina Perez NP CLINICAL HISTORY: fall, pain 4 view right wrist Comparison: None provided Findings: 4 mm avulsion fracture of the radial styloid with no significant displacement. Negative ulnar variance. No dislocation. Mild arthritic changes. No radiopaque foreign body. IMPRESSION: 1. Soft tissue swelling. 2. 4 mm avulsion fracture of the radial styloid with no significant displacement. This document has been electronically signed by: Jojo Velasquez DO on 10/06/2024 17:12:31 Dictated By: Jojo Velasquez MD Signed By: <Electronically signed by Jojo Velasquez MD in OV> 10/06/241712 DD/ 11 TD/TT: 10/06/241711 Cisco Network Engineer: Procedure Note Donunpurinterpreter, Image - 10/06/[address] [address] XRay Report Signed Patient: Sarita Puga MMR#: [id number] 92 : 1965Acct:[id number] Age/Sex: 59 / FADM Date: 10/06/24 Loc: HO.ED Attending Dr: Ordering Physician: Justina Perez NP Date of Service: 10/06/24 Procedure(s): XR wrist RT min 3V Accession Number(s): [id number] cc: Kiel Shaffer MD; Justina Perez NP CLINICAL HISTORY: fall, pain 4 view right wrist Comparison: None provided Findings: 4 mm avulsion fracture of the radial styloid with no significant displacement. Negative ulnar variance. No dislocation. Mild arthritic changes. No radiopaque foreign body. IMPRESSION: 1. Soft tissue swelling. 2. 4 mm avulsion fracture of the radial styloid with no significant displacement. This document has been electronically signed by: Jojo Velasquez DO on 10/06/2024 17:12:31 Dictated By: Jojo Velasquez MD Signed By: <Electronically signed by Jojo Velasquez MD in OV> 10/06/241712 DD/ 11 TD/TT: 10/06/241711 [employer] Network Engineer: [facility] External Provider IMG XR PROCEDURES Edited Result - Final * (ABNORMAL) POCT HGB A1C (10/02/2024 11:12 AM EDT) Pathologist [facility] Hemoglobin A1C 7.5(A) 4.0 - 5.7 % Blood 10/02/2024 11:1 2 AM EDT Kiel Shaffer MD POINT OF CARE TEST ENTER/EDIT OR DERABLES Final Result * POCT KEELEY-14 Urine Drug Screen (09/19/2024 9:09 AM EDT) THC Positive Negative Cocaine Screen, Urine Negative Negative Opiate Screen, Urine Negative Negative Methamphetamine Screen Urine Negative Negative Amphetamine Screen, Urine Negative Negative Benzodiazepines Screen, Urine Negative Negative Barbiturate Screen, Urine Negative Negative Methadone Screen, Urine Negative Negative Buprenophine Screen, Urine Negative Negative TCA, Urine Negative Negative MDMA Urine Negative Negative ng/mL Oxycodone Screen, Urine Positive Negative Phencyclidine (PCP), Urine Negative Negative Propoxyphene, Urine Negative Negative Fentanyl, Urine Negative Negative Urine Urine specimen obtained by clean catch procedure / Unknown 09/19/2024 9:09 AM EDT Opal George RN - 09/19/2024 9:09 AM EDT UTOX cup Lot#[id number] Exp. 11/27/25 Internal Pass Control Kiel Shaffer MD POINT OF CARE TEST ENTER/EDIT OR DERABLES Final Result * [place] REMOVAL IMPACTED CERUMEN INSTRUMENTATION UNILAT (09/05/2024 11:12 AM EDT) Sravanthi Ramirez MD - 09/05/2024 11:12 AM EDT Sravanthi Robbins MD 09/10/2024 10:23 AM Ear Cerumen Removal Date/Time: 09/05/2024 11:12 AM Performed by: Madalyn Garcia RN Authorized by: Sravanthi Robbins MD Consent: Consent obtained: Verbal Consent given by: Patient Risks discussed: Infection, pain, incomplete removal and dizziness Alternatives discussed: No treatment and delayed treatment [place] protocol: Patient identity confirmed: Verbally with patient Procedure details: Location: L ear and R ear Procedure type: curette Procedure outcomes: cerumen removed Post-procedure details: Inspection: Some cerumen remaining Hearing quality: Normal Procedure completion: Tolerated Comments: Large amount jang black cerumen removed from left ear, tympanic membrane visible afterward, no redness. Right ear incomplete removal. Sravanthi Robbins MD IN CLINIC/BEDSIDE ORDERABLES Fin al Result * US RENAL BI (08/22/2024 12:11 PM EDT) Anatomical Region Laterality Modality Abdomen Ultrasound 08/22/2024 12:1 1 PM EDT Narrative 08/22/2024 12:12 PM EDT [place] [address] Ultrasound Report Signed Patient: Sarita Puga MR#: [id number] 92 : 1965 Acct:[id number] Age/Sex: 59 / F ADM Date: 08/21/24 Loc: HO. Attending Dr: Cherelle Trujillo [facility] Ordering Physician: Cherelle Trujillo Date of Service: 08/21/24 Procedure(s): US renal BI Accession Number(s): [id number] cc: Cherelle Trujillo; Name,Kiel BAILEY CLINICAL HISTORY: N20.0 - Calculus of kidney US renal with Color Doppler Comparison: Prior relevant studies were not available for comparison at the time of this interpretation Findings: Right kidney normal size and echotexture, 15.7 cm length. No hydronephrosis calculus or mass. Normal color flow. Normal renal cortical thickness. Left kidney normal size and echotexture, 14.6 cm length. No hydronephrosis calculus or mass. Normal color flow. Normal renal cortical thickness. Impression: 1. Normal renal ultrasound This document has been electronically signed by: Phil Blood MD on 08/22/2024 12:11:23 Dictated By: Phil Blood MD Signed By: <Electronically signed by Phil lBood MD in OV> 08/22/24 1212 DD/ 1211 TD/TT: 08/22/24 1211 Cisco Network Engineer: Procedure Note Donotuseinterpreter, Image - 08/22/2024 [place] [address] Ultrasound Report Signed Patient: Sarita Puga [facility]#: [id number] 92 : 1965Acct:[id number] Age/Sex: 59 / FADM Date: 08/21/24 Loc: HO.US Attending Dr: Cherelle ROMO Ordering Physician: Cherelle Trujillo Date of Service: 08/21/24 Procedure(s): US renal BI Accession Number(s): [id number] cc: Cherelle Trujillo; Name,Kiel BAILEY CLINICAL HISTORY: N20.0 - Calculus of kidney US renal with Color Doppler Comparison: Prior relevant studies were not available for comparison at the time of this interpretation Findings: Right kidney normal size and echotexture, 15.7 cm length. No hydronephrosis calculus or mass. Normal color flow. Normal renal cortical thickness. Left kidney normal size and echotexture, 14.6 cm length. No hydronephrosis calculus or mass. Normal color flow. Normal renal cortical thickness. Impression: 1. Normal renal ultrasound This document has been electronically signed by: Phil Blood MD on 08/22/2024 12:11:23 Dictated By: Phil Blood MD Signed By: <Electronically signed by Phil Blood MD in OV> 08/22/24 1212 DD/ 1211 TD/TT: 08/22/24 1211 Cisco Network Engineer: [facility] External Provider IMG US PROCEDURES Final Result * ECG 12 lead (2024 1:14 PM EDT) Narrative Sarita Baker MD - 2024 1:14 PM EDT NSR Result [facility] Sarita Gonzalez MD ECG ORDERABLES Final Result * CT Head w/o Contrast (08/17/2024 10:10 AM EDT) Only the most recent of2 resultswithin the time period is included. Anatomical Region Laterality Modality Head, Neck Computed Tomogra phy 08/17/2024 10:1 0 AM EDT Narrative 08/17/2024 11:32 AM EDT [place] [address] CT Scan Report Signed Patient: Sarita Puga MR#: [id number] 92 : 1965 Acct:[id number] Age/Sex: 58 / F ADM Date: 08/17/24 Loc: HO.ED Attending Dr: Ordering Physician: Natalie Martell Date of Service: 08/17/24 Procedure(s): CT head/brain wo IV con Accession Number(s): [id number] cc: Natalie Martell; Name,Kiel BAILEY Report Number: [id number]: Total DLP = 756.00 mGy-cm EXAMINATION: CT HEAD WITHOUT CONTRAST CLINICAL INFORMATION: fall, head strike COMPARISON: August 02, 2024. TECHNIQUE: Contiguous axial imaging was performed [...] head) *Use of iterative reconstruction technique DLP: 756 mGy-cm FINDINGS: No acute cortical disruption in the bony calvarium or the skull base. Nonspecific subcentimeter lytic lesions in the deep lobe of the bony calvarium. Less conspicuous crescent-shaped slightly dense abnormality centered in the right cerebral peduncle/midbrain into the inferior right thalamus with a more pronounced hypodensity extending into the posterior limb right internal capsule. No acute intracranial hemorrhage, mass effect, midline shift, hydrocephalus or herniation. Jang-white matter differentiation is normal. Calcified plaques in the cavernous supracavernous segments of the ICAs. Sellar/suprasellar region demonstrated no gross masses. Craniocervical junction demonstrates normal position of the cerebellar tonsils. Mucosal thickening paranasal sinuses more pronounced on the left maxillary sinus. Poor dilatation. Tympanic cavities and mastoid cells are aerated. CT/CT head/brain wo IV con IMPRESSION: No acute fracture, bony calvarium. No acute intracranial hemorrhage. Evolving likely hemorrhagic stroke/versus subacute to old intra-axial hemorrhage, right cerebral peduncle/inferior right thalamus Electronically signed by: Felix Fall MD 08/17/2024 11:30 AM EDT Dictated By: Felix Mckinnon MD Signed By: <Electronically signed by Felix Tilley MD in OV> 08/17/24 1130 DD/ 1010 TD/TT: 08/17/24 1120 Cisco Network Engineer: Procedure Note Donotuseinterpreter, Image - 08/17/[address] [address] [address] Scan Report Signed Patient: Sarita Puga MMR#: [id number] 92 : 1965Acct:[id number] Age/Sex: 58 / FADM Date: 08/17/24 Loc: HO.ED Attending Dr: Ordering Physician: Natalie Martell Date of Service: 08/17/24 Procedure(s): CT head/brain wo IV con Accession Number(s): [id number] cc: Natalie Martell; Name,Kiel Report Number: [id number]: Total DLP = 756.00 mGy-cm EXAMINATION: CT HEAD WITHOUT CONTRAST CLINICAL INFORMATION: fall, head strike COMPARISON: August 02, 2024. TECHNIQUE: Contiguous axial imaging was performed [...] head) *Use of iterative reconstruction technique DLP: 756 mGy-cm FINDINGS: No acute cortical disruption in the bony calvarium or the skull base. Nonspecific subcentimeter lytic lesions in the deep lobe of the bony calvarium. Less conspicuous crescent-shaped slightly dense abnormality centered in the right cerebral peduncle/midbrain into the inferior right thalamus with a more pronounced hypodensity extending into the posterior limb right internal capsule. No acute intracranial hemorrhage, mass effect, midline shift, hydrocephalus or herniation. Jang-white matter differentiation is normal. Calcified plaques in the cavernous supracavernous segments of the ICAs. Sellar/suprasellar region demonstrated no gross masses. Craniocervical junction demonstrates normal position of the cerebellar tonsils. Mucosal thickening paranasal sinuses more pronounced on the left maxillary sinus. Poor dilatation. Tympanic cavities and mastoid cells are aerated. CT/CT head/brain wo IV con IMPRESSION: No acute fracture, bony calvarium. No acute intracranial hemorrhage. Evolving likely hemorrhagic stroke/versus subacute to old intra-axial hemorrhage, right cerebral peduncle/inferior right thalamus Electronically signed by: Felix Fall MD 08/17/2024 11:30 AM EDT RP Dictated By: Felix Mckinnon MD Signed By: <Electronically signed by Felix Tilley MDin OV> 08/17/24 1130 DD/ 1010 TD/TT: 08/17/24 1120 Cisco Network Engineer: [facility] External Provider IMG CT PROCEDURES Final Result * XR Femur 2+ Views Right (08/17/2024 10:02 AM EDT) Anatomical Region Laterality Modality Lower Extremities, Femur Right Radiogr aphic Imaging 08/17/2024 10:0 2 AM EDT Narrative 08/17/2024 11:23 AM EDT [address] [address] XRay Report Signed Patient: Sarita Puga MR#: [id number] 92 : 1965 Acct:[id number] Age/Sex: 58 / F ADM Date: 08/17/24 Loc: HO.ED Attending Dr: Ordering Physician: Natalie Martell Date of Service: 08/17/24 Procedure(s): XR femur RT 2V Accession Number(s): [id number] cc: Natalie Martell; Name,Kiel BAILEY EXAMINATION: XR FEMUR, RIGHT CLINICAL INFORMATION: pain, injury COMPARISON: Right hip x-ray August 02, 2024 TECHNIQUE: AP and lateral views of the right femur were obtained. FINDINGS: Surgical clips are again identified in the pelvis. Hip joint spaces preserved and congruent. Total knee arthroplasty has been performed. No hardware loosening is identified. No fractures are evident. XR/XR femur RT 2V IMPRESSION: Unremarkable right femur. Electronically signed by: Zohaib Murray MD 08/17/2024 11:20 AM EDT Dictated By: Zohaib Murray MD Signed By: <Electronically signed by Zohaib Murray MD in OV> 08/17/24 1120 DD/ 1002 TD/TT: 08/17/24 1113 Cisco Network Engineer: Procedure Note Donotuseinterpreter, Image - 08/17/[address] [address] XRay Report Signed Patient: Sarita Puga MMR#: [id number] 92 : 1965Acct:[id number] Age/Sex: 58 / FADM Date: 08/17/24 Loc: HO.ED Attending Dr: Ordering Physician: Natalie Martell Date of Service: 08/17/24 Procedure(s): XR femur RT 2V Accession Number(s): [id number] cc: Natalie Martell; Name,Kiel BAILEY EXAMINATION: XR FEMUR, RIGHT CLINICAL INFORMATION: pain, injury COMPARISON: Right hip x-ray August 02, 2024 TECHNIQUE: AP and lateral views of the right femur were obtained. FINDINGS: Surgical clips are again identified in the pelvis. Hip joint spaces preserved and congruent. Total knee arthroplasty has been performed. No hardware loosening is identified. No fractures are evident. XR/XR femur RT 2V IMPRESSION: Unremarkable right femur. Electronically signed by: Zohaib Murray MD 08/17/2024 11:20 AM EDT Dictated By: Zohaib Murray MD Signed By: <Electronically signed by Zohaib Murray MD in OV> 08/17/24 1120 DD/ 1002 TD/TT: 08/17/24 1113 Cisco Network Engineer: [facility] External Provider IMG XR PROCEDURES Final Result * XR Lumbar Spine 2-3 Views (08/17/2024 10:01 AM EDT) Anatomical Region Laterality Modality Spine, L-spine Radiographic Diana ging 08/17/2024 10:0 1 AM EDT Narrative 08/17/2024 11:27 AM EDT [address] [address] XRay Report Signed Patient: Sarita Puga MR#: [id number] 92 : 1965 Acct:[id number] Age/Sex: 58 / F ADM Date: 08/17/24 Loc: HO.ED Attending Dr: Ordering Physician: Natalie Martell Date of Service: 08/17/24 Procedure(s): XR lumbar spine 2-3V Accession Number(s): [id number] cc: Natalie Martell; Name,Kiel BAILEY EXAMINATION: XR LUMBOSACRAL SPINE CLINICAL INFORMATION: pain, injury COMPARISON: January 24, 2024 TECHNIQUE: Three views of the lumbosacral spine. FINDINGS: There are 5 nonrib-bearing lumbar segments. SI joints are grossly unremarkable. Bridging anterior osteophytes are present at T11-12 and T12-L1. L1-2 demonstrates mild disc space narrowing, stable L3-4 demonstrates mild disc space narrowing and small anterior osteophytes. Stable. L4-5 demonstrates mild disc space narrowing, stable. Disc spaces are preserved otherwise. Vertebral body height and alignment is preserved without change Surgical clips are visible in the pelvis. Mild atherosclerotic ossification is present in the distal abdominal aorta.. XR/XR lumbar spine 2-3V IMPRESSION: Stable lumbar spine x-ray, multilevel degenerative disc disease, detailed above. Electronically signed by: Zohaib Murray MD 08/17/2024 11:24 AM EDT RP Dictated By: Zohaib Murray MD Signed By: <Electronically signed by Zohaib Murray MD in OV> 08/17/24 1124 DD/ 1001 TD/TT: 08/17/24 1113 Cisco Network Engineer: Procedure Note Donotuseinterpreter, Image - 08/17/2024 [place] [address] XRay Report Signed Patient: Sarita Puga [facility]#: [id number] 92 : 1965Acct:[id number] Age/Sex: 58 / FADM Date: 08/17/24 Loc: HO.ED Attending Dr: Ordering Physician: Natalie Martell Date of Service: 08/17/24 Procedure(s): XR lumbar spine 2-3V Accession Number(s): [id number] cc: Natalie Martell; Name,Kiel BAILEY EXAMINATION: XR LUMBOSACRAL SPINE CLINICAL INFORMATION: pain, injury COMPARISON: January 24, 2024 TECHNIQUE: Three views of the lumbosacral spine. FINDINGS: There are 5 nonrib-bearing lumbar segments. SI joints are grossly unremarkable. Bridging anterior osteophytes are present at T11-12 and T12-L1. L1-2 demonstrates mild disc space narrowing, stable L3-4 demonstrates mild disc space narrowing and small anterior osteophytes. Stable. L4-5 demonstrates mild disc space narrowing, stable. Disc spaces are preserved otherwise. Vertebral body height and alignment is preserved without change Surgical clips are visible in the pelvis. Mild atherosclerotic ossification is present in the distal abdominal aorta.. XR/XR lumbar spine 2-3V IMPRESSION: Stable lumbar spine x-ray, multilevel degenerative disc disease, detailed above. Electronically signed by: Zohaib Murray MD 08/17/2024 11:24 AM EDT Dictated By: Zohaib Murray MD Signed By: <Electronically signed by Zohaib Murray MD in OV> 08/17/24 1124 DD/ 1001 TD/TT: 08/17/24 1113 [employer] Network Engineer: [facility] External Provider IMG XR PROCEDURES Final Result * XR Chest 2 Views (08/17/2024 9:56 AM EDT) Only the most recent of2 resultswithin the time period is included. Anatomical Region Laterality Modality Chest Radiographic Diana ging 08/17/2024 9:56 AM EDT Narrative 08/17/2024 11:20 AM EDT [place] [address] XRay Report Signed Patient: Sarita Puga MR#: [id number] 92 : 1965 Acct:[id number] Age/Sex: 58 / F ADM Date: 08/17/24 Loc: HO.ED Attending Dr: Ordering Physician: Natalie Martell Date of Service: 08/17/24 Procedure(s): XR chest 2V Accession Number(s): [id number] cc: Natalie Martell; Name,Kiel BAILEY EXAMINATION: XR CHEST 2 VIEWS HISTORY: fall, pain COMPARISON: Comparison is made with the prior examination dated 07/30/2024. FINDINGS: PA and lateral views of the chest are submitted. The lungs are expanded and clear. There is no pleural effusion, pneumothorax, or pulmonary vascular congestion. The heart is normal in size. There is calcification of the aortic arch. There is mild degenerative disc disease of the spine. XR/XR chest 2V IMPRESSION: No acute cardiopulmonary abnormality. Electronically signed by: Kenny Fernandes MD 08/17/2024 11:17 AM EDT RP Dictated By: Kenny Fernandes MD Signed By: <Electronically signed by Kenny Fernandes MD in OV> 08/17/24 1117 DD/ 0956 TD/TT: 08/17/24 1113 Cisco Network Engineer: Procedure Note Donotuseinterpreter, Image - 08/17/2024 [place] [address] XRay Report Signed Patient: Sarita Puga [facility]#: [id number] 92 : 1965Acct:[id number] Age/Sex: 58 / FADM Date: 08/17/24 Loc: .ED Attending Dr: Ordering Physician: Natalie Martell Date of Service: 08/17/24 Procedure(s): XR chest 2V Accession Number(s): [id number] cc: Natalie Martell; Name,Kiel BAILEY EXAMINATION: XR CHEST 2 VIEWS HISTORY: fall, pain COMPARISON: Comparison is made with the prior examination dated 07/30/2024. FINDINGS: PA and lateral views of the chest are submitted. The lungs are expanded and clear. There is no pleural effusion, pneumothorax, or pulmonary vascular congestion. The heart is normal in size. There is calcification of the aortic arch. There is mild degenerative disc disease of the spine. XR/XR chest 2V IMPRESSION: No acute cardiopulmonary abnormality. Electronically signed by: Kenny Fernandes MD 08/17/2024 11:17 AM EDT RP Dictated By: Kenny Fernandes MD Signed By: <Electronically signed by Kenny Fernandes MD in OV> 08/17/24 1117 DD/ 0956 TD/TT: 08/17/24 1113 Cisco Network Engineer: [facility] External Provider IMG XR PROCEDURES Final Result * CT Cervical Spine w/o Contrast (08/02/2024 7:26 AM EDT) Anatomical Region Laterality Modality Spine, C-spine Computed Tomogra phy 08/02/2024 7:26 AM EDT Narrative 08/02/2024 7:28 AM EDT [address] [address] [address] Scan Report Signed Patient: Sarita Puga MR#: [id number] 92 : 1965 Acct:[id number] Age/Sex: 58 / F ADM Date: 07/30/24 Loc: [facility] 471-[address]: Alexandra SEGURA Ordering Physician: Miguel Dodge MD Date of Service: 08/02/24 Procedure(s): CT cervical spine wo IV con Accession Number(s): [id number] cc: Kiel Shaffer MD; Miguel Dodge MD Report Number: [id number]: Total DLP = 543.00 mGy-cm CLINICAL HISTORY: fall CT cervical spine without contrast Comparison: CT/SR - CT CERVICAL SPINE WO IV CON - 04/06/24 17:19 EST Findings: Bony alignment of the cervical vertebral bodies is anatomic. No fracture or prevertebral soft tissue swelling. Minimal to mild degenerative change within the mid to lower cervical spine. IMPRESSION: No acute findings. This document has been electronically signed by: Hema Ng MD on 08/02/2024 07:26:46 Dictated By: Hema Ng MD Signed By: <Electronically signed by Hema Ng MD in OV> 08/02/2427 DD/ 5 TD/TT: 08/02/24725 Cisco Network Engineer: Procedure Note Donotuseinterpreter, Image - 08/02/[address] [address] [address] Scan Report Signed Patient: Sarita Puga MMR#: [id number] 92 : 1965Acct:[id number] Age/Sex: 58 / FADM Date: 07/30/24 Loc: [facility] 471-[address]: Alexandra SEGURA Ordering Physician: Miguel Dodge MD Date of Service: 08/02/24 Procedure(s): CT cervical spine wo IV con Accession Number(s): [id number] cc: Deena,Kiel BAILEY; Miguel Dodge MD Report Number: [id number]: Total DLP = 543.00 mGy-cm CLINICAL HISTORY: fall CT cervical spine without contrast Comparison: CT/SR - CT CERVICAL SPINE WO IV CON - 04/06/24 17:19 EST Findings: Bony alignment of the cervical vertebral bodies is anatomic. No fracture or prevertebral soft tissue swelling. Minimal to mild degenerative change within the mid to lower cervicalspine. IMPRESSION: No acute findings. This document has been electronically signed by: Hema Ng MD on 08/02/2024 07:26:46 Dictated By: Hema Ng MD Signed By: <Electronically signed by Hema Ng MD in OV> 08/02/24726 DD/ 5 TD/TT: 08/02/24725 Cisco Network Engineer: [facility] External Provider IMG CT PROCEDURES Edited Result - Final * XR Hip 2 or 3 Views Left (08/02/2024 7:02 AM EDT) Anatomical Region Laterality Modality Lower Extremities, Hip Left Radiograp hic Imaging 08/02/2024 7:02 AM EDT Narrative 08/02/2024 7:04 AM EDT [place] [address] XRay Report Signed Patient: Sarita Puga MR#: [id number] 92 : 1965 Acct:[id number] Age/Sex: 58 / F ADM Date: 07/30/24 Loc: [facility] 471-[address]: Nikki Ovalle NP Ordering Physician: Miguel Dodge MD Date of Service: 08/02/24 Procedure(s): XR hip LT min 2V Accession Number(s): [id number] cc: Kiel Shaffer MD; Miguel Dodge MD CLINICAL HISTORY: fall 3 view, pelvis and left hip Comparison: None Findings: The bones are intact. Mild degenerative changes at both hips. The soft tissues are unremarkable. IMPRESSION: Mild degenerative changes. No acute process. This document has been electronically signed by: Miguel Angel Diaz MD on 08/02/2024 07:02:51 Dictated By: Miguel Angel Diaz MD Signed By: <Electronically signed by Miguel Angel Diaz MD in OV> 08/02/2404 DD/ 1 TD/TT: 08/02/24701 Cisco Network Engineer: Procedure Note Donotuseinterpreter, Image - 08/02/2024 [place] [address] XRay Report Signed Patient: Sarita Puga [facility]#: [id number] 92 : 1965Acct:[id number] Age/Sex: 58 / FADM Date: 07/30/24 Loc: [facility] 471-[address]: Nikki Ovalle MARKETING TEACHER Ordering Physician: Miguel Dodge MD Date of Service: 08/02/24 Procedure(s): XR hip LT min 2V Accession Number(s): [id number] cc: Kiel Shaffer MD; Miguel Dodge MD CLINICAL HISTORY: fall 3 view, pelvis and left hip Comparison: None Findings: The bones are intact. Mild degenerative changes at both hips. The soft tissues are unremarkable. IMPRESSION: Mild degenerative changes. No acute process. This document has been electronically signed by: Miguel Angel Diaz MD on 08/02/2024 07:02:51 Dictated By: Miguel Angel Diaz MD Signed By: <Electronically signed by Miguel Angel Diaz MD in OV> 08/02/24 0704 DD/ 1 TD/TT: 08/02/24701 Cisco Network Engineer: [facility] External Provider IMG XR PROCEDURES Edited Result - Final * Influenza B (ID NOW Rapid Molecular) (07/30/2024 9:11 AM EDT) [facility] Influenza B Negative Negative, Indeterminate [facility] Swab 07/30/2024 9:11 AM EDT [facility] MARKETING TEACHER POINT OF CARE TEST ENTER/EDIT O RDERABLES Final Result [facility] [address] [place] [phone] * Influenza A (ID NOW Rapid Molecular) (07/30/2024 9:11 AM EDT) [facility] Influenza A Negative Negative, Indeterminate [facility] Swab 07/30/2024 9:11 AM EDT [facility] POINT OF CARE TEST ENTER/EDIT O RDERABLES Final Result Performing Organization Address [facility]/ZIP Co de Phone Number [facility] [address] [place] [phone] * POCT COVID-19 Ag Cr ID NOW (07/30/2024 9:11 AM EDT) [facility] Coronavirus Antigen PCR Negative Negative, Indeterminate, None Detected, Invalid, Specimen unsatisfactory for evaluation, Weakly Positive, 2+ Swab 07/30/2024 9:11 AM EDT [facility] POINT OF CARE TEST ENTER/EDIT O RDERABLES Final Result * POCT Glucose (07/27/2024 10:21 AM EDT) [facility] Glucose Blood, POC 188 60 - 200 mg/dL QC Media Lot # [id number] Lot# Expiration Date Blood Capillary blood specimen / Unknown 07/27/2024 10:21 AM EDT us Kiel Shaffer MD POINT OF CARE TEST ENTER/EDIT OR DERABLES Final Result * (ABNORMAL) Lipid Panel with Reflex to Direct LDL (06/18/2024 8:18 AM EDT) Triglycerides 156(H) <150 mg/dL [facility] Comment:Desirable Triglyceri de: less than 150 mg/dLBorderline High Triglyceride 150-199 mg/dLHigh Triglyceride: 200-499 mg/dLVery High Triglyceride: greater than or equal to 5OO mg/dL Cholesterol 185 <200 mg/dL [facility] Comment:Desirable Cholestero l: less than 200 mg/dLBorderline High Cholesterol: 200-239 mg/dLHigh Cholesterol: greater than 239 mg/dL LDL Cholesterol Calculated 109(H) <100 mg/dL [facility] Comment:Desirable LDL: less than 100 mg/dLNear Optimal/Above Optimal LDL: 110- 129 mg/dLBorderline High LDL: 130-159 mg/dLHigh LDL: 160-189 mg/dLVery High LDL: greater than or equal to 190 mg/dL HDL Cholesterol 45 >40 mg/dL [facility] Comment:Desirable HDL: great er than 40 mg/dL Note: This HDL assay may give artificially low results in patients with liver disease. 06/18/2024 8:18 AM EDT 06/18/2024 11:00 AM EDT us Kiel Shaffer MD LAB BLOOD ORDERABLES Final Resul t [facility] [address] [place] [address] [phone] * BI Mammogram Screening Tomosynthesis Bilateral (06/03/2023 8:45 AM EDT) Anatomical Region Laterality Modality Breast Bilateral Mammography 06/03/2023 8:45 AM EDT Narrative 06/30/2023 10:24 PM EDT [facility] [address] [place] [address] Mammography Report Signed Patient: Sarita Puga MR#: [id number] 92 : 1965 Acct:[id number] Age/Sex: 57 / F ADM Date: 06/03/23 Loc: [facility] Attending Dr: Kiel Shaffer MD Ordering Physician: Kiel Shaffer MD Results: 1Negative Date of Service: 06/03/23 Follow Up: 1 Year From Orig inal Mammogram Procedure(s): MM tomosynthesis screening BI Accession Number(s): [id number] cc: Kiel Shaffer MD EXAMINATION: MM SCREENING [...] in OV> 06/30/23 2220 DD/ 0845 TD/TT: Cisco Network Engineer: Procedure Note Donotuseinterpreter, Image - 06/30/2023 [facility] [address] [place], [place] [address] Mammography Report Signed Patient: Sarita Puga MMR#: [id number] 92 : 1965Acct:[id number] Age/Sex: 57 / FADM Date: 06/03/23 Loc: [facility] Attending Dr: Kiel Shaffer MD Ordering Physician: Kiel Shaffer MDResults: 1Negative Date of Service: 06/03/23Follow Up: 1 Year From [facility] ina Mammogram Procedure(s): MM tomosynthesis screening BI Accession Number(s): [id number] cc: Kiel Shaffer MD EXAMINATION: MM SCREENING [...] MD in OV> 06/30/230 DD/ 0845 TD/TT: Cisco Network Engineer: Kiel Shaffer MD [facility] BI PROCEDURES Edited Result - Final * Albumin, Random Urine W/Creatinine (05/26/2023 8:27 AM EDT) Creatinine, Urine 185.88 mg/dL [facility] Microalbumin Urine 23.0 mg/L [facility] Microalbum Creatinine Ratio Ur 12.3 <30 ug/mg cr [facility] Comment:Albumin/Creatinine R atio Reference Ranges: Normal: < 30 ug/mg creatinine Microalbuminuria: 30 - 300 ug/mg creatinineClinical Albuminuria: > 300 ug/mg creatinine Urine (Urine, Random) 05/26/2023 8:27 AM EDT 05/26/2023 11:19 AM EDT us Kiel Name MD LAB URINE ORDERABLES Final Resul t [facility] [address] [place] [address] [phone] * Colonoscopy (07/01/2022 4:37 PM EDT) Colonoscopy Normal Normal Narrative Emely Devine - 07/01/2022 4:37 PM EDT Recommended 5 year follow up ([facility]) [facility] Provider HEALTH MAINTENANCE Final Result * Diabetes Eye Exam (05/26/2022) Eye Exam Normal Normal Kiel Shaffer MD HEALTH MAINTENANCE Final Result from Last 3 Months or Most Recently Relevant to Health Maintenance Insurance [employer] C3 [employer] [address] [place], [place] [phone] [place] [address] [place], [place] [address]HEALTH C3 [place] [address] [address] [place] [address] [place] [address] Care Teams County Home Demonstrator Relationship Specialty Start Date End Date Name, MD Kiel [address] [place], [place] PCP - General Family Medicine 07/15/15 Katlyn Rodriguez PharmD [address] [place] [address] Pharmacist Internal Medicine 10/08/22 Nehal Ann RN [address] [place] [address] Registered Nurse Family Medicine 08/20/24 Ania Spencer 08/20/24 Marta Ovalle Chief Sales OfficerCrop Picker 05/25/23
--- OUTSIDE RECORDS SUMMARY | 2024-10-17 10:07 | XMS_ITS | Encounter Summary ---
Author Organization [employer] Address [address] [facility] 7t [place] [address] Care Team Providers Care Corporate Physical Security Supervisor Name Role Phone Name, Kiel BAILEY Primary Care Provider Katlyn Rodriguez PharmD Unavailable [phone] Nehal Ann RN Unavailable [phone] Ania Spencer Unavailable Reason for Visit * Reason Comments Med Refill Encounter Details Date Type Department Care Team (Late st Contact Info) Description 04/15/2023 Refill [facility] MEDICINE [address] [place] [address] Yaneth Restrepo FNP [address] [place] [address] Diabetes mellitus type 2 in obese (CMS/HCC) [...] 10/29/2024 9:30 AM EDT Medication Management [address] [address] Puia, Katlyn, PharmD [address] [place] [address] 11/15/2024 11:30 AM EDT Clinical Support [address] [address] Opal Steiner RN documented as of this [...] documented as of this encounter Care Teams Corporate Physical Security Supervisor Relationship Specialty Start Date End Date Name, MD Kiel [address] [place] [address] PCP - General Family Medicine 07/15/15 Katlyn Rodriguez PharmD [address] [place] [address] Pharmacist Internal Medicine 10/08/22 Nehal Ann, MARINA [address] [place] [address] Registered Nurse Family Medicine 08/20/24 Ania Spencer 08/20/24 Marta Ovalle Target Network AnalystSalvage Machine Operator 05/25/23 documented as of this encounter
--- OUTSIDE RECORDS SUMMARY | 2024-10-17 10:07 | XMS_ITS | Encounter Summary ---
Author Organization [employer] Address [address] [facility] 7t [place] [address] Care Team Providers Care Pantry Cook Name Role Phone Name, Kiel BAILEY Primary Care Provider [phone] Katlyn Rodriguez PharmD Unavailable [phone] Nehal Ann RN Unavailable [phone] Ania Spencer Unavailable Reason for Visit * Reason Onset Date Comments Durable Medical Equipment 12/06/2022 Encounter Details Date Type Department Care Team (Late st Contact Info) Description 12/06/2022 Telephone [facility] MEDICINE [address] [place], [place] [phone] Name, MD Kiel [address] [place] [address] Durable Medical Equipment Social History Tobacco Use [...] housing situation today? I have shirinquita jackson 12/06/[address] you [...] to message above. Please contact pt at [phone] (Slovak) * Telephone Encounter - Jean-Paul Finch - 12/06/2022 3:29 PM EDT Tc from pt requesting status on some bed absorbant pads to not stain bed. Please contact pt at [phone] Slovak Speaker documented in this encounter Plan of Treatment Upcoming Encounters Date Type Department Care Team (Late st Contact Info) Description 10/29/2024 9:30 AM EDT Medication Management [facility] MEDICINE [address] [place] [address] Katlyn Rodriguez, PharmD [address] [place], [place] [phone] 11/15/2024 11:30 AM EDT Clinical Support [facility] MED[facility]INE [address] [place] [phone] Opal Steiner, MARINA documented as of this [...] documented as of this encounter Care Teams Pantry Cook Relationship Specialty Start Date End Date Name, MD Kiel [address] [place] [address] PCP - General Family Medicine 07/15/15 Puia, Katlyn, PharmD [address] [place] [address] Pharmacist Internal Medicine 10/08/22 Nehal Ann RN [address] [place] [address] Registered Nurse Family Medicine 08/20/24 Ania Spencer 08/20/24 Marta Ovalle Special Education Kindergarten TeacherPolice Detention Attendant 05/25/23 documented as of this encounter
--- OUTSIDE RECORDS SUMMARY | 2024-10-17 10:07 | XMS_ITS | Encounter Summary ---
Author Organization [employer] Address [address] [facility] 7t [place] [address] Care Team Providers Care Material Yard Clerk Name Role Phone Name, Kiel BAILEY Primary Care Provider Katlyn Rodriguez PharmD Unavailable [phone] Nehal Ann RN Unavailable [phone] Ania Spencer Unavailable Reason for Visit * Reason Comments Med Refill Encounter Details Date Type Department Care Team (Late st Contact Info) Description 06/27/2023 Refill [facility] MEDICINE [address] [place] [address] Katlyn Rodriguez, PharmD [address] [place] [address] Tobacco use disorder Social History Tobacco Use [...] Description 10/29/2024 9:30 AM EDT Medication Management [address] [address] Puia, Katlyn, PharmD [address] [place] [address] 11/15/2024 11:30 AM EDT Clinical Support [address] [address] Opal Steiner RN documented as of this [...] documented as of this encounter Care Teams Material Yard Clerk Relationship Specialty Start Date End Date Name, MD Kiel [address] [place] [address] PCP - General Family Medicine 07/15/15 Katlyn Rodriguez PharmD [address] [place], [place] [phone] Pharmacist Internal Medicine 10/08/22 Nehal Ann, MARINA [address] [place] [address] Registered Nurse Family Medicine 08/20/24 Ania Spencer 08/20/24 Marta Ovalle Etl Data ArchitectCharging Board Operator 05/25/23 documented as of this encounter
--- OUTSIDE RECORDS SUMMARY | 2024-10-17 10:08 | XMS_ITS | Encounter Summary ---
Author Organization [employer] Address [address] [place] [address] 7t [place] [address] Care Team Providers Care Oil Well Gun Perforator Operator Name Role Phone Name, Kiel BAILEY Primary Care Provider [phone] Katlyn Rodriguez PharmD Unavailable [phone] Nehal Ann RN Unavailable [phone] Ania Spencer Unavailable Reason for Visit * Reason Comments Med Refill Encounter Details Date Type Department Care Team (Late st Contact Info) Description 07/16/2022 Refill [facility] MEDICINE [address] [place], [place] [phone] Name, MD Kiel [address] [place], [place] [phone] Chronic pain syndrome Social History Tobacco Use [...] Description 10/29/2024 9:30 AM EDT Medication Management [address] [address] Katlyn Rodriguez PharmD [address] [place], [place] 11/15/2024 11:30 AM EDT Clinical Support [address] [address] Opal Steiner, MARINA documented as of this encounter Visit Diagnoses Diagnosis Chronic pain syndrome documented in this encounter Additional Health Concerns Assessment Noted Time PHQ-9 Depression Total Score: 7 07/15/19 2:39 PM EDT documented as of this encounter Care Teams Oil Well Gun Perforator Operator Relationship Specialty Start Date End Date Name, MD Kiel [address] [place] [address] PCP - General Family Medicine 07/15/15 Katlyn Rodriguez PharmD [address] [place] [address] Pharmacist Internal Medicine 10/08/22 Nehal Ann, MARINA [address] [place] [address] Registered Nurse Family Medicine 08/20/24 Ania Spencer 08/20/24 Marta Ovalle Sky DiverMothers Helper 05/25/23 documented as of this encounter
--- OUTSIDE RECORDS SUMMARY | 2024-10-17 10:08 | XMS_ITS | Encounter Summary ---
Author Organization [employer] Address [address] [place] [address] 7t [place] [address] Care Team Providers Care Learning Support Specialist Name Role Phone Name, Kiel BAILEY Primary Care Provider [phone] Katlyn Rodriguez PharmD Unavailable [phone] Nehal Ann RN Unavailable [phone] Ania Spencer Unavailable Reason for Visit * Reason Onset Date Comments Referral 08/30/2024 Encounter Details Date Type Department Care Team (Late st Contact Info) Description 08/30/2024 Telephone [facility] MEDICINE [address] [place], [place] [phone] Name, MD Kiel [address] [place], [place] [phone] Referral Social History Tobacco Use Types Packs/Day Years Used Date Smoking Tobacco: Every Day Cigarettes Passive Smoke Exposure: Past Smokeless Tobacco: Never Alcohol Use Standard Drinks/Week Comments Yes 2 (1 standard drink = 0.6 oz pur e alcohol) Events/ Holidays Depression Answer Date Recorded Patient Health Questionnaire-9 Score 0 07/27/2024 Patient Health Questionnaire-9 Score 0 07/27/2024 Last PHQ-9: Questionnaire Data Not on file 0 07/27/2024 Housing Stability Answer Date Recorded What is [...] Date Recorded Patient Health Questionnaire-2 Score 0 07/27/2024 Internet Access Answer Date Recorded Internet Access [...] encounter Miscellaneous Notes * Telephone Encounter - Rosario Phillips - 08/30/2024 12:59 PM EDT TC from Michaelle requesting to update referral for physical therapy has to say lower extremity weakness. Request also includes updating the ICD code to match diagnosis. Also update referral for occupational therapy, need the specific part of the body that is going to be treaty Contact pt at [phone] documented in this encounter Plan of Treatment Upcoming Encounters Date Type Department Care Team (Late st Contact Info) Description 10/29/2024 9:30 AM EDT Medication Management [facility] MED[facility]INE [address] [place] [address] Katlyn Rodriguez, Bin [address] [place] [address] 11/15/2024 11:30 AM EDT Clinical Support [facility] [address] [place] [address] Opal Steiner, RN documented as of this [...] Assessment Noted Time PHQ-9 Depression Total Score: 0 07/28/19 25 10:26 AM EDT documented as of this encounter Care Teams Learning Support Specialist Relationship Specialty Start Date End Date Name, MD Kiel [address] [place] [address] PCP - General Family Medicine 07/15/15 Puia, Katlyn, PharmD [address] [place] [address] Pharmacist Internal Medicine 10/08/22 Nehal Ann, MARINA [address] [place] [address] Registered Nurse Family Medicine 08/20/24 Ania Spencer 08/20/24 Marta Ovalle Welding Rod CoaterSewing Inspector 05/25/23 documented as of this encounter
--- OUTSIDE RECORDS SUMMARY | 2024-10-17 10:08 | XMS_ITS | Clinical Summary ---
Author Organization [facility] Address [address] [place] [address] [place] [address] Phone Care Team Providers Care Waxer Operator Name Role Phone Unavailable Primary Care Provider [...] Devices Not on file Insurance C[place] [address] [place] [address] [place] [address] [place] [address] [place] [address] [place] [address] [place] [address] [place] [address] C3 ACO C3 ACO C3 ACO C3 ACO C3 ACO Additional Source Comments The information contained in this document represents components of the legal health record. It is not the complete legal health record.[facility]
--- OUTSIDE RECORDS SUMMARY | 2024-10-17 10:08 | XMS_ITS | Encounter Summary ---
Author Organization [employer] Address [address] [place] [address] 7t [place] [address] Care Team Providers Care Rn Staffing Name Role Phone Name, Kiel BAILEY Primary Care Provider [phone] Katlyn Rodriguez PharmD Unavailable [phone] Nehal Ann RN Unavailable [phone] Ania [place] Unavailable Reason for Visit * Reason Comments Med Refill Encounter Details Date Type Department Care Team ([facility] Contact Info) Description 06/28/2022 Refill [facility] MEDICINE [address] [place], [place] [phone] Name, MD Kiel 230 [place], [place] [phone] Chronic pain syndrome Social History Tobacco Use [...] [facility] st Contact Info) Description 10/29/2024 9:30 AM EDT Medication Management [address] [address] Katlyn Rodriguez PharmD 230 [place], [place] 11/15/2024 11:30 AM EDT Clinical Support [address] [address] Opal Steiner, RN documented as of this encounter Visit Diagnoses Diagnosis Chronic pain syndrome documented in this encounter Care Teams Rn Staffing Relationship Specialty Start Date End Date Name, MD Kiel [address] [place] [address] PCP - General Family Medicine 07/15/15 Katlyn Rodriguez, Bin [address] [place] [address] Pharmacist Internal Medicine 10/08/22 Nehal Ann, MARINA [address] [place] [address] Registered Nurse Family Medicine 08/20/24 Ania [place] 08/20/24 Marta Ovalle Professional Healthcare RepresentativeHealth And Wellness Manager 05/25/23 documented as of this encounter
--- OUTSIDE RECORDS SUMMARY | 2024-10-17 10:08 | XMS_ITS | Encounter Summary ---
Author Organization [employer] Address [address] [place] [address] 7t [place] [address] Care Team Providers Care Nitrocellulose Maker Name Role Phone Name, Kiel BAILEY Primary Care Provider [phone] Katlyn Rodriguez PharmD Unavailable Nehal Ann RN Unavailable [phone] Ania [place] Unavailable Reason for Visit * Reason Onset Date Comments Appointment Request 02/29/2024 Encounter Details Date Type Department Care Team ([facility] st Contact Info) Description 02/29/2024 Telephone [facility] MEDICINE 230 [place], [place] [phone] Name, MD Kiel 230 [place], [place] [phone] Appointment Request Social History Tobacco Use Types [...] different date and time. Pt does speak hungarian so you will need an hogshead hooper. documented in this encounter Plan of Treatment Upcoming Encounters Date Type Department Care Team (Late st Contact Info) Description 10/29/2024 9:30 AM EDT Medication Management [facility] MEDICINE [address] [place] [address] Katlyn Rodriguez, PharmD 230 [place] [address] 11/15/2024 11:30 AM EDT Clinical Support [facility] [address] [place] [address] Opal Steiner RN documented as of this encounter Goals Goal Patient Goal Type Associated Problems Recent Progress Patient-Stated? Author Record your blood pressure once per day Blood Pressure No Jennifer, Katlyn, PharmD Blood Pressure < 140/90 Blood [...] documented as of this encounter Care Teams Nitrocellulose Maker Relationship Specialty Start Date End Date Name, MD Kiel 230 [place] [address] PCP - General Family Medicine 07/15/15 Puia, Katlyn, PharmD [address] [place] [address] Pharmacist Internal Medicine 10/08/22 Nehal Ann RN [address] [place] [address] Registered Nurse Family Medicine 08/20/24 Ania [place] 08/20/24 Marta Ovalle Healthcare ManagementDietary Tech 05/25/23 documented as of this encounter
--- OUTSIDE RECORDS SUMMARY | 2024-10-17 10:08 | XMS_ITS ---
Author Organization [employer] Address [address] [place] [address] 7t [place] [address] Care Team Providers Care Postal Service Mail Processor Name Role Phone Name, Kiel BAILEY Primary Care Provider [phone] Katlyn Rodriguez PharmD Unavailable Nehal Ann RN Unavailable [phone] Ania [place] Unavailable CM Complex Status:Enrolled (Active) Start date:08/20/2024 Enrollment date:09/04/2024 Enrollment reason:ADT Feed Overview ED- Pt went to [facility] ED on 08/17/24. Case Team Name Relationship Phone Nehal Ann RN(Responsible Staff) Registered Nurse [phone] Continued Care and Services Coordination
--- OUTSIDE RECORDS SUMMARY | 2024-10-17 10:08 | XMS_ITS | Encounter Summary ---
Author Organization [employer] Address [address] [place] [address] 7t [place] [address] Care Team Providers Care Dental Equipment Repairer Name Role Phone Name, Kiel BAILEY Primary Care Provider [phone] Katlyn Rodriguez PharmD Unavailable Nehal Ann RN Unavailable [phone] Ania [place] Unavailable Reason for Visit * Reason Onset Date Comments FYI 08/03/2024 Encounter Details Date Type Department Care Team (Late st Contact Info) Description 08/03/2024 Telephone [facility] MEDICINE 230 [place], [place] [phone] Name, MD Kiel 230 [place], [place] [phone] Social History Tobacco Use Types Packs/Day Years [...] is your housing situation today? I have hsirin jackson 09/02/[address] you [...] Telephone Encounter - Flora Christianson RN - 08/03/2024 12:22 PM EDT Noted. Forwarded to PCP as an FYI. * Telephone Encounter - Garrett Ovalle - 08/03/2024 12:13 PM EDT Tc from [facility] calling to inform pcp that they will be admitting pt for OT and prison. If any questions you can contact pt at [phone], documented in this encounter Plan of Treatment Upcoming Encounters Date Type Department Care Team (Late st Contact Info) Description 10/29/2024 9:30 AM EDT Medication Management [facility] MEDICINE 230 [place] [address] Katlyn Rodriguez, PharmD 230 [place], [place] [phone] 11/15/2024 11:30 AM EDT Clinical Support [facility] MEDICINE 230 [place] [address] Opal Steiner, MARINA documented as of this [...] Time PHQ-9 Depression Total Score: 0 07/28/19 10:26 AM EDT documented as of this encounter Care Teams Dental Equipment Repairer Relationship Specialty Start Date End Date Name, MD Kiel 230 [place] [address] PCP - General Family Medicine 07/15/15 Puia, Katlyn, PharmD [address] [place] [address] Pharmacist Internal Medicine 10/08/22 Nehal Ann RN [address] [place] [address] Registered Nurse Family Medicine 08/20/24 Ania [place] 08/20/24 Marta Ovalle Yarn Mercerizer Operator HelperDenture Waxer 05/25/23 documented as of this encounter
--- OUTSIDE RECORDS SUMMARY | 2024-10-17 10:08 | XMS_ITS | Encounter Summary ---
Author Organization [employer] Address [address] [facility] 7t [place] [address] Care Team Providers Care Certified Mortician Name Role Phone Name, Kiel BAILEY Primary Care Provider Katlyn Rodriguez PharmD Unavailable [phone] Nehal Ann RN Unavailable [phone] Ania [place] Unavailable Reason for Visit * Reason Comments Med Refill Encounter Details Date Type Department Care Team (Late st Contact Info) Description 06/08/2024 Refill [facility] CHC MED & PEDS [address] [place] [address] Name, MD Kiel 230 [place] [address] Chronic pain syndrome Social History Tobacco Use [...] Description 10/29/2024 9:30 AM EDT Medication Management [address] [address] PuiaReidKatlyn, PharmD [address] [place] [address] 11/15/2024 11:30 AM EDT Clinical Support [address] [address] Opal Steiner RN documented as of this [...] as of this encounter Care Teams Certified Mortician Relationship Specialty Start Date End Date Name, MD Kiel 230 [place] [address] PCP - General Family Medicine 07/15/15 Katlyn Rodriguez PharmD 230 [place] [address] Pharmacist Internal Medicine 10/08/22 Nehal Ann RN [address] [place] [address] Registered Nurse Family Medicine 08/20/24 Ania [place] 08/20/24 Marta Ovalle Abalone ProcessorInstaller Interior Assemblies 05/25/23 documented as of this encounter
--- OUTSIDE RECORDS SUMMARY | 2024-10-17 10:08 | XMS_ITS | Encounter Summary ---
Author Organization [email or web address] Address [address] [place] [address] 7t [place] [address] Care Team Providers Care Stiff Leg Operator Name Role Phone Name, Kiel BAILEY Primary Care Provider [phone] Katlyn Rodriguez PharmD Unavailable Nehal Ann RN Unavailable [phone] Ania [place] Unavailable Encounter Details Date Type Department Care Team ([facility] Contact Info) Description 02/23/2022 Orders Only [facility] 230 [place] [address] Name, MD Kiel 230 [place] [address] Social History Tobacco Use Types Packs/Day Years [...] Encounters Date Type Department Care Team ([facility] Contact Info) Description 10/29/2024 9:30 AM EDT Medication Management [address] [address] Katlyn Rodriguez PharmD 230 [place] [address] 11/15/2024 11:30 AM EDT Clinical Support [address] [address] Opal Steiner, MARINA documented as of this encounter Visit Diagnoses Not on filedocumented in this encounter Care Teams Stiff Leg Operator Relationship Specialty Start Date End Date Name, MD Kiel [address] [place] [phone] PCP - General Family Medicine 07/15/15 Katlyn Rodriguez, PharmD [address] [place] [address] Pharmacist Internal Medicine 10/08/22 Nehal Ann, MARINA [address] [place] [address] Registered Nurse Family Medicine 08/20/24 Ania [place] 08/20/24 Marta Ovalle District Sales RepresentativeSurgical Services Manager 05/25/23 documented as of this encounter
--- OUTSIDE RECORDS SUMMARY | 2024-10-17 10:08 | XMS_ITS | Encounter Summary ---
Author Organization [facility] Address [address] [facility] [address] [place] [address] Phone Care Team Providers Care Wind Turbine Controls Engineer Name Role Phone Unavailable Primary Care Provider Unavailabl e Encounter Details Date Type Department Care Team (Late st Contact Info) Description 01/04/2020 Procedure Pass [facility] [address] [place] [address] [place], [place] [phone] Social History Tobacco Use Types Packs/Day Years Used Date Smoking Tobacco: Never Assessed Comments Unknown Sex and Gender Information Value Date Recorded Sex Assigned at Not on file Legal Sex Female 3:20 PM EST Gender Identity Not on file Sexual Orientation Not on file documented as of this encounter Plan of Treatment Not on file documented as of this encounter Visit Diagnoses Not on filedocumented in this encounter Additional Source Comments The information contained in this document represents components of the legal health record. It is not the complete legal health record.[facility]
--- OUTSIDE RECORDS SUMMARY | 2024-10-17 10:08 | XMS_ITS | Encounter Summary ---
Author Organization [employer] Address [address] [facility] 7t [place] [address] Care Team Providers Care Doctor Of Naprapathy Name Role Phone Name, Kiel BAILEY Primary Care Provider [phone] Katlyn Rodriguez PharmD Unavailable [phone] Nehal Ann RN Unavailable [phone] Ania [place] Unavailable Reason for Visit * Reason Onset Date Comments Hospital Follow-up 08/02/2024 Encounter Details Date Type Department Care Team (Late st Contact Info) Description 08/02/2024 Telephone [facility] MEDICINE 230 [place], [place] [phone] Name, MD Kiel 230 [place], [place] [phone] Hospital Follow-up Social History Tobacco Use Types Packs/Day Years [...] encounter Miscellaneous Notes * Telephone Encounter - Nevaeh Alba - 08/02/2024 3:54 PM EDT Tc from pt requesting a HDF appt. Hospital: [facility] Date of admission: 07/30/24 Discharge date: 08/02/24 Diagnosed: chronic SOPD *Send message to May Clinical Care Coordinators documented in this encounter Plan of Treatment Upcoming Encounters Date Type Department Care Team (Late st Contact Info) Description 10/29/2024 9:30 AM EDT Medication Management [facility] MEDICINE [address] [place] [address] Katlyn Rodriguez PharmD 230 [place] [address] 11/15/2024 11:30 AM EDT Clinical Support [facility] MEDICINE [address] [place] [address] Obdulia, Opal, RN documented as of this [...] documented as of this encounter Care Teams Doctor Of Naprapathy Relationship Specialty Start Date End Date Name, MD Kiel 230 [place] [address] PCP - General Family Medicine 07/15/15 Puia, Katlyn, PharmD 230 [place] [address] Pharmacist Internal Medicine 10/08/22 Nehal Ann RN [address] [place] [address] Registered Nurse Family Medicine 08/20/24 Ania [place] 08/20/24 Marta Ovalle Fur DresserCampus Rep 05/25/23 documented as of this encounter
--- OUTSIDE RECORDS SUMMARY | 2024-10-17 10:08 | XMS_ITS | Encounter Summary ---
Author Organization [employer] Address [address] [place] [address] 7t [place] [address] Care Team Providers Care Testing Manager Name Role Phone Name, Kiel BAILEY Primary Care Provider [phone] Katlyn Rodriguez PharmD Unavailable Nehal Ann RN Unavailable [phone] Ania [place] Unavailable Encounter Details Date Type Department Care Team ([facility] Contact Info) Description 07/01/2022 Abstract [facility] MEDICINE 230 [place] [address] Name, MD Kiel 230 [place], [place] [phone] Social History Tobacco Use Types Packs/Day Years [...] Encounters Date Type Department Care Team ([facility] Contact Info) Description 10/29/2024 9:30 AM EDT Medication Management [address] [address] Katlyn Rodriguez PharmD 230 [place] [address] 11/15/2024 11:30 AM EDT Clinical Support [address] [phone] Opal Steiner, MARINA documented as of this encounter Visit Diagnoses Not on filedocumented in this encounter Care Teams Testing Manager Relationship Specialty Start Date End Date Name, MD Kiel [address] [place] [phone] PCP - General Family Medicine 07/15/15 Katlyn Rodriguez, Bin [address] [place] [address] Pharmacist Internal Medicine 10/08/22 Nehal Ann, MARINA [address] [place] [address] Registered Nurse Family Medicine 08/20/24 Ania [place] 08/20/24 Marta Ovalle Communications EditorDirectory Carrier 05/25/23 documented as of this encounter
--- OUTSIDE RECORDS SUMMARY | 2024-10-17 10:08 | XMS_ITS ---
Author Organization [employer] Address [address] [place] [address] 7t [place] [address] Care Team Providers Care Information Technology Officer Name Role Phone Name, Kiel BAILEY Primary Care Provider Katlyn Rodriguez PharmD Unavailable Nehal Ann RN Unavailable [phone] Ania [place] Unavailable CHW Complex Status:Outreach In Progress (Enrolling) Start date:08/20/2024 Enrollment reason:ADT Feed Overview ED- Pt went to [facility] ED on 08/17/24. Case Team Name Relationship Phone Ania [place](Responsible Staff) [phone] Continued Care and Services Coordination
--- OUTSIDE RECORDS SUMMARY | 2024-10-17 10:08 | XMS_ITS | Encounter Summary ---
Author Organization [facility] Address [address] [facility] [address] [place] [address] Phone Care Team Providers Care Suggestion Clerk Name Role Phone Unavailable Primary Care Provider Unavailabl e Encounter Details Date Type Department Care Team (Latest Contact Info) Description 01/04/2020 Ancillary Orders [facility] [address] [place] [address] [place] [address] Bright Jesus, DO [address] [place] [address] Chest pain, unspecified type Social History Tobacco Use Types Packs/Day Years Used Date Smoking Tobacco: Never Assessed Comments Unknown Sex and Gender Information Value Date Recorded Sex Assigned at Not on file Legal Sex Female 3:20 PM EST Gender Identity Not on file Sexual Orientation Not on file documented as of this encounter Plan of Treatment Not on file documented as of this encounter Results * Holter Monitor 24 Hours (01/04/2020 3:42 PM EST) Anatomical Region Laterality Modality Heart Other Narrative 01/09/2020 12:51 PM EST 24-hour monitor: The baseline rhythm is sinus with a minimum heart rate of 57, maximum 130, average 86 bpm. There are occasional PACs and PVCs present. There is no diary submitted. There are several patient event markers. The patient event markers occur during sinus rhythm without ectopy. Impression: Normal 24-hour monitor. Patient event markers during sinus rhythm without ectopy. Procedure Note Stanley Calderón MD - 01/09/2020 24-hour monitor: The baseline rhythm is sinus with a minimum heart rate of57, maximum 130, average 86 bpm. There are occasional PACs and PVCspresent. There is no diary submitted. There are several patient eventmarkers. The patient event markers occur during sinus rhythm withoutectopy. Impression: Normal 24-hour monitor. Patient event markers during sinusrhythm without ectopy. Bright Jesus DO [facility] ORDERABLE S Final Result documented in this encounter Visit Diagnoses Diagnosis Chest pain, unspecified type documented in this encounter Additional Source Comments The information contained in this document represents components of the legal health record. It is not the complete legal health record.[facility]
--- OUTSIDE RECORDS SUMMARY | 2024-10-17 10:08 | XMS_ITS | Encounter Summary ---
Author Organization [employer] Address [address] [facility] 7t [place] [address] Care Team Providers Care Hand Cementer Name Role Phone Name, Kiel BAILEY Primary Care Provider Katlyn Rodriguez PharmD Unavailable Nehal Ann RN Unavailable [phone] Ania [place] Unavailable Reason for Visit * Reason Comments Med Refill Encounter Details Date Type Department Care Team (Late st Contact Info) Description 06/08/2024 Refill [facility] CHC MED & PEDS [address] [place] [address] Name, MD Kiel 230 [place] [address] Chronic pain syndrome Social History Tobacco Use [...] Description 10/29/2024 9:30 AM EDT Medication Management [address] [address] PuiaReidKatlyn, PharmD [address] [place] [address] 11/15/2024 11:30 AM EDT Clinical Support [address] [address] Opal Steiner RN documented as of this [...] as of this encounter Care Teams Hand Cementer Relationship Specialty Start Date End Date Name, MD Kiel 230 [place] [address] PCP - General Family Medicine 07/15/15 Katlyn Rodriguez PharmD 230 [place] [address] Pharmacist Internal Medicine 10/08/22 Nehal Ann RN [address] [place] [address] Registered Nurse Family Medicine 08/20/24 Ania [place] 08/20/24 Marta Ovalle Grease RendererTelecom Sales Consultant 05/25/23 documented as of this encounter
--- OUTSIDE RECORDS SUMMARY | 2024-10-17 10:08 | XMS_ITS | Encounter Summary ---
Author Organization [employer] Address [address] [place] [address] 7t [place] [address] Care Team Providers Care Surveillance Technician Name Role Phone Name, Kiel BAILEY Primary Care Provider [phone] Katlyn Rodriguez PharmD Unavailable Nehal Ann RN Unavailable [phone] Ania [place] Unavailable Reason for Referral * Consultation (Routine) - Closed Specialty Diagnoses / Procedures Referred By Carroll hoover Referred To Contact Occupational Therapy Diagnoses Left arm weakness Lizzie Alfaro NP 230 [place] [address] Phone: tel: fax: [facility] Physical Therapy [address] [place] [address] Phone: tel: fax: Referral ID Status Reason Start Date Expiration Date V isits Requested Visits Authorized [id number] Closed Specialty Services Required 09/06/2024 09/06/2025 20 20 Encounter Details Date Type Department Care Team (Late st Contact Info) Description 09/06/2024 Orders Only [facility] MEDICINE 230 [place] [address] Lizzie Alfaro NP 230 [place] [address] Left arm weakness (Primary Dx) Social History Tobacco Use Types [...] Description 10/29/2024 9:30 AM EDT Medication Management [facility] 230 [place] [address] Katlyn Rodriguez, PharmD 230 [place] [address] 11/15/2024 11:30 AM EDT Clinical Support [facility] 230 [place] [address] Opal Steiner, MARINA Scheduled Referrals Name Type Priority Associated Diagnoses Order Schedule Referral to Occupational Therapy Outpatient Referral Routine Left arm weakness Expected: 09/06/2024 (Approximate), Expires: 09/06/2025 documented as of this encounter Goals Goal [...] this encounter Visit Diagnoses Diagnosis Left arm weakness- Primary Other musculoskeletal symptoms referable to limbs documented in this encounter Additional Health Concerns Assessment Noted Time PHQ-9 Depression Total Score: 7 09/05/19 25 11:46 AM EDT documented as of this encounter Care Teams Surveillance Technician Relationship Specialty Start Date End Date Name, MD Kiel 230 [place] [address] PCP - General Family Medicine 07/15/15 Puia, Katlyn, PharmD 230 [place] [address] Pharmacist Internal Medicine 10/08/22 Nehal Ann RN [address] [place] [address] Registered Nurse Family Medicine 08/20/24 Ania [place] 08/20/24 Marta Ovalle Arc TrimmerAutomatic Glove Turner And Former 05/25/23 documented as of this encounter
--- OUTSIDE RECORDS SUMMARY | 2024-10-17 10:08 | XMS_ITS | Encounter Summary ---
Author Organization [employer] Address [address] [place] [address] 7t [place] [address] Care Team Providers Care Aligner Typewriter Name Role Phone Name, Kiel BAILEY Primary Care Provider [phone] Katlyn Rodriguez PharmD Unavailable Nehal Ann RN Unavailable [phone] Ania [place] Unavailable Reason for Visit * Reason Comments Med Refill Encounter Details Date Type Department Care Team ([facility] Contact Info) Description 07/02/2022 Refill [facility] MEDICINE 230 [place], [place] [phone] Name, MD Kiel 230 [place], [place] [phone] Chronic pain syndrome Social History Tobacco Use [...] Upcoming Encounters Date Type Department Care Team ([facility] st Contact Info) Description 10/29/2024 9:30 AM EDT Medication Management [address] [address] Katlyn Rodriguez PharmD 230 [place] 11/15/2024 11:30 AM EDT Clinical Support [address] [address] Opal Steiner, RN documented as of this encounter Visit Diagnoses Diagnosis Chronic pain syndrome documented in this encounter Care Teams Aligner Typewriter Relationship Specialty Start Date End Date Name, MD Kiel [address] [place] [address] PCP - General Family Medicine 07/15/15 Katlyn Rodriguez, Bin [address] [place] [address] Pharmacist Internal Medicine 10/08/22 Nehal Ann, MARINA [address] [place] [address] Registered Nurse Family Medicine 08/20/24 Ania [place] 08/20/24 Marta Ovalle Barrel Assembly InspectorFilm Mounter 05/25/23 documented as of this encounter
--- OUTSIDE RECORDS SUMMARY | 2024-10-17 10:08 | XMS_ITS | Encounter Summary ---
Author Organization [employer] Address [address] [place] [address] 7t [place] [address] Care Team Providers Care Air Duct Mechanic Name Role Phone Name, Kiel BAILEY Primary Care Provider [phone] Katlyn Rodriguez PharmD Unavailable Nehal Ann RN Unavailable [phone] Ania Spencer Unavailable Encounter Details Date Type Department Care Team ([facility] Contact Info) Description 07/01/2022 Abstract [facility] MEDICINE [address] [place] [address] Name, MD Kiel [address] [place], [place] [id number] Social History Tobacco Use Types Packs/Day Years [...] Upcoming Encounters Date Type Department Care Team ([facility] Contact Info) Description 10/29/2024 9:30 AM EDT Medication Management [facility] [address] [facility] [place] [address] Katlyn Rodriguez PharmD [address] [place] [address] 11/15/2024 11:30 AM EDT Clinical Support [facility] 230 [facility] [place] [address] Opal Steiner RN documented as of this encounter Procedures Procedure Name Priority Date/Time Associated Diagnosis Comments COLONOSCOPY Routine 07/01/2022 4:37 PM EDT documented in this encounter Results * Colonoscopy (07/01/2022 4:37 PM EDT) Colonoscopy Normal Normal Narrative Emely Devine - 07/01/2022 4:37 PM EDT Recommended 5 year follow up ([facility]) Historical Provider [facility] Final Result documented in this encounter Visit Diagnoses Not on filedocumented in this encounter Care Teams Air Duct Mechanic Relationship Specialty Start Date End Date Name, MD Kiel [address] [place] [address] PCP - General Family Medicine 07/15/15 Katlyn Rodriguez, Bin [address] [place] [address] Pharmacist Internal Medicine 10/08/22 Nehal Ann, MARINA [address] [place] [address] Registered Nurse Family Medicine 08/20/24 Ania Spencer 08/20/24 Marta Ovalle Machine ProgrammerHat Checker 05/25/23 documented as of this encounter
--- OUTSIDE RECORDS SUMMARY | 2024-10-17 10:08 | XMS_ITS | Encounter Summary ---
Author Organization [employer] Address [address] [place] [address] 7t [place] [address] Care Team Providers Care Recording Studio Internship Name Role Phone Name, Kiel BAILEY Primary Care Provider [phone] Katlyn Rodriguez PharmD Unavailable [phone] Nehal Ann RN Unavailable [phone] Ania Spencer Unavailable Reason for Referral * Consultation (Routine) - Closed Specialty Diagnoses / Procedures Referred By Carroll hoover Referred To Contact Occupational Therapy Diagnoses Weakness of both lower extremities Hemiparesis of left dominant side as late effect of cerebral infarction (CMS/HCC) Lizzie Alfaro NP [address] [place] [address] Phone: tel: fax: [facility] [place] Physical Therapy [address] [place] [address] Phone: tel: fax: Referral ID Status Reason Start Date Expiration Date V isits Requested Visits Authorized [id number] Closed Specialty Services Required 09/06/2024 09/06/2025 20 20 * Consultation (Routine) - Closed Specialty Diagnoses / Procedures Referred By Carroll hoover Referred To Contact Physical Therapy Diagnoses Weakness of both lower extremities Lizzie Alfaro NP [address] [place] [address] Phone: tel: fax: [facility] [place] Physical Therapy [address] [place] [address] Phone: tel: fax: Referral ID Status Reason Start Date Expiration Date V isits Requested Visits Authorized [id number] Closed Specialty Services Required 09/06/2024 09/06/2025 20 20 Encounter Details Date Type Department Care Team (Late st Contact Info) Description 09/06/2024 Orders Only [facility] MED[facility]INE [address] [place] [address] Lizzie Alfaro NP [address] [place] [address] Weakness of both lower extremities (Primary Dx); Hemiparesis of left dominant side as late effect of cerebral infarction (CMS/HCC) Social History Tobacco Use Types Packs/Day [...] Description 10/29/2024 9:30 AM EDT Medication Management [address] [address] PuiaReidKatlyn, PharmD [address] [place] [address] 11/15/2024 11:30 AM EDT Clinical Support [address] [address] Opal Steiner RN Scheduled Referrals Name Type Priority Associated Diagnoses Orde r Schedule Referral to Physical Therapy Outpatient Referral Routine Weakness of both lower extremities Expected: 09/06/2024 (Approximate), Expires: 09/06/2025 Referral to Occupational Therapy Outpatient Referral Routine Weakness of both lower extremities Hemiparesis of left dominant side as late effect of cerebral infarction (CMS/HCC) Expected: 09/06/2024 (Approximate), Expires: 09/06/2025 documented as [...] as of this encounter Visit Diagnoses Diagnosis Weakness of both lower extremities- Primary Hemiparesis of left dominant side as late effect of cerebral infarction (CMS/HCC) documented in this encounter Additional Health Concerns Assessment Noted Time PHQ-9 Depression Total Score: 7 09/05/19 25 11:46 AM EDT documented as of this encounter Care Teams Recording Studio Internship Relationship Specialty Start Date End Date Name, MD Kiel 230 [place] [address] PCP - General Family Medicine 07/15/15 Katlyn Rodriguez, Bin [address] [place] [address] Pharmacist Internal Medicine 10/08/22 Nehal Ann RN [address] [place] [address] Registered Nurse Family Medicine 08/20/24 Ania Spencer 08/20/24 Marta Ovalle Drawing InstructorStructures Assembler 05/25/23 documented as of this encounter
--- OUTSIDE RECORDS SUMMARY | 2024-10-17 10:08 | XMS_ITS | Encounter Summary ---
Author Organization [employer] Address [address] [facility] 7t [place] [address] Care Team Providers Care Coal Feeder Operator Name Role Phone Name, Kiel BAILEY Primary Care Provider Katlyn Rodriguez PharmD Unavailable [phone] Nehal Ann RN Unavailable Ania Spencer Unavailable Reason for Visit * Reason Onset Date Comments Durable Medical Equipment 01/24/2023 Encounter Details Date Type Department Care Team (Late st Contact Info) Description 01/24/2023 Telephone [facility] MEDICINE 230 [place], [place] [phone] Name, MD Kiel [address] [place], [place] [phone] Durable Medical Equipment Social History Tobacco Use [...] to errol. Any questions, contact pt at [phone] documented in this encounter Plan of Treatment Upcoming Encounters Date Type Department Care Team (Late st Contact Info) Description 10/29/2024 9:30 AM EDT Medication Management [address] [address] Puia, Katlyn, PharmD [address] [place] [address] 11/15/2024 11:30 AM EDT Clinical Support [facility] MEDICINE [address] [place] [address] Opal Steiner RN documented as of this encounter Goals Goal Patient Goal Type Associated Problems Recent Progress Patient-Stated? Author Record your blood pressure once per day Blood Pressure No Puia, Katlyn, PharmD Blood Pressure < 140/90 Blood Pressure 150/87(2024 2:08 PM EDT) No Puia, Katlyn, PharmD Hemoglobin A1c < 7 Result Component 7.5(08/12/202 5 11:12 AM EDT) No Puia, Katlyn, PharmD Record your blood sugar as directed Result Component No Puia, Katlyn, PharmD documented as of this encounter Visit Diagnoses Not on filedocumented in this encounter Additional Health Concerns Assessment Noted Time PHQ-9 Depression Total Score: 7 07/15/19 23 2:39 PM EDT documented as of this encounter Care Teams Coal Feeder Operator Relationship Specialty Start Date End Date Name, MD Kiel [address] [place] [address] PCP - General Family Medicine 07/15/15 PuKatlyn albert, PharmD [address] [place] [address] Pharmacist Internal Medicine 10/08/22 Nehal Ann RN [address] [place] [address] Registered Nurse Family Medicine 08/20/24 Ania Spencer 08/20/24 Marta Ovalle Case ConsultantSmall Engine Specialist 05/25/23 documented as of this encounter
--- OUTSIDE RECORDS SUMMARY | 2024-10-17 10:08 | XMS_ITS | Encounter Summary ---
Author Organization [employer] Address [address] [place] [address] 7t [place] [address] Care Team Providers Care Manager Program Management Name Role Phone Name, Kiel BAILEY Primary Care Provider [phone] Katlyn Rodriguez PharmD Unavailable [phone] Nehal Ann RN Unavailable [phone] Ania Spencer Unavailable Reason for Visit * Reason Onset Date Comments FYI 08/03/2024 Encounter Details Date Type Department Care Team (Late st Contact Info) Description 08/03/2024 Telephone [facility] MEDICINE 230 [place], [place] [phone] Name, MD Kiel 230 [place], [place] [phone] Social History Tobacco Use Types Packs/Day Years [...] encounter Miscellaneous Notes * Telephone Encounter - Meghan Ramirez RN - 08/03/2024 2:25 PM EDT Noted. Pt is scheduled 08/06/24. * Telephone Encounter - Jennifer Adams - 08/03/2024 2:00 PM EDT Tc from Em with N stating pt has an upcoming appointment with pcp and would like to report: 1) Pt was discharged yesterday 08/02. Reason: COPD. 2) F/u Left ear symptoms. Pt unable to hear. 3) F/u pull up prescription. Any questions contact Em [phone] documented in this encounter Plan of Treatment Upcoming Encounters Date Type Department Care Team (Late st Contact Info) Description 10/29/2024 9:30 AM EDT Medication Management [address] [address] Puia, Katlyn, PharmD [address] [place] [address] 11/15/2024 11:30 AM EDT Clinical Support [address] [address] Opal Steiner RN documented as of this [...] as of this encounter Care Teams Manager Program Management Relationship Specialty Start Date End Date Name, MD Kiel [address] [place] [address] PCP - General Family Medicine 07/15/15 Puia, Katlyn, PharmD [address] [place] [phone] Pharmacist Internal Medicine 10/08/22 Nehal Ann RN [address] [place] [address] Registered Nurse Family Medicine 08/20/24 Ania Spencer 08/20/24 Marta Ovalle American Board Certified OrthotistFamily Living Educator 05/25/23 documented as of this encounter
== END 2024-10-17 09:31 | disposition home or self-care (01) ==
LOC: HO.HOSX 09:30
DX: S52.514A Nondisplaced fracture of right radial styloid process, initial encounter for closed fracture (principal); W18.39XA Other fall on same level, initial encounter; Y93.01 Activity, walking, marching and hiking
CPT/HCPCS: 25600; 73110; 99212

== ENCOUNTER 2024-10-17 11:29 | Outpatient (AMB) | payer MEDICAID, SELFPAY ==
[2024-10-17 11:36] VITALS: BMI 41.4
--- NOTE | 2024-10-17 11:36 | MHC.OFFVIS ---
Vital Signs 10/17/24 11:36 Height 5 ft 3 in Weight 234 lb BMI 41.4 Intake Visit Reasons: FC-RT hand radial styloid fx s/p fall 10/06/24 Intake Note: Sarita is a 59 year old right hand dominant female who presents today for evaluation of right radial styloid fracture, DOI: 10/06/24. Patient reported to [facility] ED she fell while walking to a car, catching herself with her right hand. At the ED, she was placed in a Velcro wrist brace. She was advised to apply ice and to take Ibuprofen PRN. Today, patient complains of pain on the radial aspect of the right hand as well as the dorsal aspect of the right index finger, with associated numbnes and tingling. She has been taking Ibuprofen and the Oxycodone she takes for other health problems. Reports Right Carpal Carpal Tunnel Release ~. Milk Wagon Driver Required: No Allergies penicillin G (Penicillin G) Allergy (Mild, Verified 10/17/24 11:41) SWELLING barium sulfate (ORAL CONTRAST) Allergy (Unknown, Verified 10/17/24 11:41) HIVES cephalexin Allergy (Unknown, Verified 10/17/24 11:41) Unknown HPI HPI FC-RT hand radial styloid fx s/p fall 10/06/24: Details: Sarita is a 59 year old right hand dominant female who presents today for evaluation of right radial styloid fracture, DOI: 10/06/24. Patient reported to [facility] she fell while walking to a car, catching herself with her right hand. At the ED, she was placed in a Velcro wrist brace. She was advised to apply ice and to take Ibuprofen PRN. Today, patient complains of pain on the radial aspect of the right hand as well as the dorsal aspect of the right index finger, with associated numbnes and tingling. She has been taking Ibuprofen and the Oxycodone she takes for other health problems. Reports Right Carpal Carpal Tunnel Release ~. [facility] Medical History COPD (chronic obstructive pulmonary disease) Diabetes mellitus Brain lesion Reactive airway disease Coronary artery disease Insulin dependent type 2 diabetes mellitus Exposure to rabies Lymphoma Restrictive lung disease secondary to obesity Nocturnal hypoxemia DRE (obstructive sleep apnea) Cough Nicotine dependence, cigarettes, uncomplicated Allergic rhinitis Morbid obesity Hyperlipidemia GERD (gastroesophageal reflux disease) Tubular adenoma Chronic idiopathic constipation IBS (irritable bowel syndrome) Back pain Depression Surgical History History of total right knee replacement (TKR) History of appendectomy (~1978) History of (~1986) History of hysterectomy (~1995) History of lithotripsy (~2018) History of carpal tunnel surgery of right wrist (~2020) History of colonoscopy History of esophagogastroduodenoscopy (EGD) Family History Mother Diabetes Heart muscle disorder caused by another medical condition Father Diabetes Epilepsy Sister No problems noted. Sister No problems noted. Sister No problems noted. Sister No problems noted. Sister No problems noted. Brother No problems noted. Brother No problems noted. Brother No problems noted. Brother No problems noted. Brother No problems noted. Brother No problems noted. Daughter No problems noted. Daughter No problems noted. Son No problems noted. Son No problems noted. Son No problems noted. Social History Household Members: Other Household Members Other:: grandson Housing: Apartment Are you a primary senior care assistant to a significant other at home: No Do you presently have visiting nurse or other home services: No Alcohol intake: current Alcohol intake frequency: a few times a week Patient Tobacco Use Status: Current everyday Tobacco user Tobacco use type: Cigarette Cigarette Packs Per Day: 2 Cigarettes Per Day: 40.0 Years Smoked: (onset 13yo, x 42yrs, max 2ppd, now 1/2ppd - 30PYH) e-Cigarette/Vaping Use: Never Used Second Hand Smoke Exposure: No Substance Use Type: Marijuana service: No Current occupational status: disabled Current occupation: rt handed Review of Systems Const All systems reviewed & are unremarkable except as noted in HPI and below Physical Exam Vital Signs: BMI result Body Mass Index 41.4 Extrem Other: Patient is alert, oriented, and in no acute distress. Neuro: Normal sensation of the tips of all digits of the right hand at this time Vascular: Cap refill brisk Pain: Tenderness to palpation about the right distal radius, particularly over the radial styloid Tenderness to palpation of right anatomical snuffbox and scaphoid tubercle No tenderness to palpation of ulnar aspect of right wrist Skin: No lacerations or abrasions. General: No ecchymosis, erythema, or evidence of infection. Psych: Appears grossly normal Affect normal Attitude cooperative Office Procedures AMB Fracture Care Details: Right radial styloid fracture Fracture Billing Code: Fracture Billing Code Casting/Splints 27652-Etsa/Wrist Cast Application Procedure code (CPT) selection complete Results Reviewed Results Reviewed: X-rays obtained in the office today and independently reviewed by me, Jose Hernandez PA-C, demonstrate nondisplaced fracture of the right radial styloid, as well as a lucency on the right scaphoid concerning for occult fracture. Assessment & Plan Assessment & Plan (1) Nondisplaced fracture of right radial styloid process, initial encounter for closed fracture: Code(s): S52.514A - Nondisplaced fracture of right radial styloid process, initial encounter for closed fracture Category: Medical (2) Tenderness of anatomical snuffbox: Code(s): M79.643 - Pain in unspecified hand Category: Medical Plan 1. Right radial styloid fracture 2. Tenderness of anatomical snuffbox with associated concerning area on x-ray Date of injury 10/06/2024 Patient is educated about this condition Patient is educated about the typical treatment course At this time, patient is placed into a thumb spica cast Patient is educated on proper cast care and precautions At this time, patient is educated that I am concerned that there might be an occult fracture of her right scaphoid, and then immobilization of the thumb spica cast is the best way to treat this potential issue Patient will follow-up in 1 month for repeat x-rays and reassessment of the scaphoid and particular, if there is evidence of fracture we will continue treatment, if there is no ongoing evidence of fracture and no pain, we may discontinue casting and/or consider MRI for assessment of the health of the scaphoid Patient and her son understand this and are amenable to this plan Follow-up in 4 weeks Orders: Orders XR wrist RT min 3V Today M25.531 - Pain in right wrist Coding Level of Care Code Est Pt Level 3 (54120) Diagnoses Nondisplaced fracture of right radial styloid process, initial encounter for closed fracture S52.514A Tenderness of anatomical snuffbox M79.643 CPT Codes Fracture Care - Fracture Billing Code: Fracture Billing Code ([id number]) Casting - CPT: 68314-Kgkn/Wrist Cast Application ([id number])
== END 2024-10-17 12:36 | disposition home or self-care (01) ==
LOC: HO.HOS 11:29
PROVIDERS: PCP Internal Medicine Geriatric Medicine
DX: S52.514A Nondisplaced fracture of right radial styloid process, initial encounter for closed fracture (principal); M79.641 Pain in right hand
CPT/HCPCS: 25600; 99213

== ENCOUNTER → 2024-10-17 11:30 | Outpatient (BNV) | payer MEDICAID, SELFPAY | PROVIDERS: Visit Provider Radiology Diagnostic Radiology | DX: S52.514A Nondisplaced fracture of right radial styloid process, initial encounter for closed fracture (principal) | CPT/HCPCS: 73110 ==

== ENCOUNTER 2024-10-26 14:34 | Outpatient (REF) | payer MEDICAID, SELFPAY ==
--- NOTE | ~2024-10-26 | XR_ITS ---
EXAMINATION: XR WRIST, RIGHT CLINICAL INFORMATION: M79.641 - Pain in right hand COMPARISON: October 13, 2024 TECHNIQUE: PA, lateral, and oblique views of the right wrist. Scaphoid projection. FINDINGS: There is a well-corticated bone fragment in the radial margin styloid process right radius. No gross callus formation. Carpal bones are intact with normal alignment. Distal ulna is intact. The metacarpals are intact. No subcutaneous emphysema. XR/XR wrist RT w scaphoid IMPRESSION: Nonunion fracture, styloid processes, distal epiphysis right radius. Electronically signed by: Felix Fall MD 10/26/2024 02:56 PM EDT
--- OUTSIDE RECORDS SUMMARY | 2024-10-26 14:51 | XMS_ITS | Encounter Summary ---
Author Organization [employer] Address [address] [facility] 7t [place] [address] Care Team Providers Care Sulfuric Acid Plant Operator Name Role Phone Name, Kiel BAILEY Primary Care Provider [phone] Katlyn Rodriguez PharmD Unavailable [phone] Nehal Ann RN Unavailable [phone] Ania Spencer Unavailable Encounter Details Date Type Department Care Team ([facility] Contact Info) Description 08/26/2022 Orders Only [facility] [address] [place] [address] Leia Gonzales LPN Social History Tobacco Use [...] Encounters Date Type Department Care Team ([facility] Contact Info) Description 10/29/2024 9:30 AM EDT Medication Management [address] [address] Katlyn Rodriguez PharmD [address] [place] [address] 11/15/2024 11:30 AM EDT Clinical Support [address] [address] Opal Steiner, RN documented as of this encounter Visit Diagnoses Not on filedocumented in this encounter Additional Health Concerns Assessment Noted Time PHQ-9 Depression Total Score: 7 07/15/19 23 2:39 PM EDT documented as of this encounter Care Teams Sulfuric Acid Plant Operator Relationship Specialty Start Date End Date Name, MD Kiel [address] [place] [address] PCP - General Family Medicine 07/15/15 Katlyn Rodriguez, Bin [address] [place] [address] Pharmacist Internal Medicine 10/08/22 Nehal Ann, MARINA [address] [place] [address] Registered Nurse Family Medicine 08/20/24 Ania Spencer 08/20/24 Marta Ovalle Bender HandStoneworker 05/25/23 documented as of this encounter
--- OUTSIDE RECORDS SUMMARY | 2024-10-26 14:51 | XMS_ITS | Encounter Summary ---
Author Organization [employer] Address [address] [facility] 7t [place] [address] Care Team Providers Care Supercalender Operator Helper Name Role Phone Name, Kiel BAILEY Primary Care Provider [phone] Katlyn Rodriguez PharmD Unavailable [phone] Nehal Ann RN Unavailable [phone] Ania Spencer Unavailable Encounter Details Date Type Department Care Team (Late st Contact Info) Description 05/01/[address] [facility] 230 [place], [place] [phone] Name, MD Kiel 230 [place], [place] [phone] Social History Tobacco Use Types Packs/Day Years [...] Description 10/29/2024 9:30 AM EDT Medication Management [address] [address] Katlyn Rodriguez, PharmD [address] [place] [address] 11/15/2024 11:30 AM EDT Clinical Support [address] [address] Opal Steiner RN documented as of this [...] documented as of this encounter Care Teams Supercalender Operator Helper Relationship Specialty Start Date End Date Name, MD Kiel 230 [place] [address] PCP - General Family Medicine 07/15/15 Puia, Katlyn, PharmD 230 [place] [address] Pharmacist Internal Medicine 10/08/22 Nehal Ann RN [address] [place] [address] Registered Nurse Family Medicine 08/20/24 Ania Spencer 08/20/24 Marta Ovalle Vice President Of AdvertisingCorporate Trainer 05/25/23 documented as of this encounter
--- OUTSIDE RECORDS SUMMARY | 2024-10-26 14:51 | XMS_ITS | Encounter Summary ---
Author Organization [employer] Address [address] [facility] 7t [place] [address] Care Team Providers Care Housing Installer Name Role Phone Name, Kiel BAILEY Primary Care Provider [phone] Katlyn Rodriguez PharmD Unavailable Nehal Ann RN Unavailable [phone] Ania Spencer Unavailable Encounter Details Date Type Department Care Team (Late st Contact Info) Description 02/20/2024 Telephone [facility] [address] [place] [address] Name, MD Kiel [address] [place] [address] Social History Tobacco Use Types Packs/Day Years [...] Description 10/29/2024 9:30 AM EDT Medication Management [address] [address] Puia, Katlyn, PharmD [address] [place], [place] [phone] 11/15/2024 11:30 AM EDT Clinical Support [address] [address] Opal Steiner RN documented as of this [...] documented as of this encounter Care Teams Housing Installer Relationship Specialty Start Date End Date Name, MD Kiel [address] [place] [address] PCP - General Family Medicine 07/15/15 Katlyn Rodriguez, Bin [address] [place] [address] Pharmacist Internal Medicine 10/08/22 Nehal Ann RN [address] [place] [address] Registered Nurse Family Medicine 08/20/24 Ania Spencer 08/20/24 Marta Ovalle Panel SewerPolice Lieutenant Patrol 05/25/23 documented as of this encounter
--- OUTSIDE RECORDS SUMMARY | 2024-10-26 14:52 | XMS_ITS | Encounter Summary ---
Author Organization [employer] Address [address] [facility] 7t [place] [address] Care Team Providers Care Chemical Laboratory Assistant Name Role Phone Name, Kiel BAILEY Primary Care Provider Katlyn Rodriguez PharmD Unavailable [phone] Nehal Ann RN Unavailable [phone] Ania Spencer Unavailable Reason for Visit * Reason Comments Med Refill Encounter Details Date Type Department Care Team (Late st Contact Info) Description 06/08/2024 Refill [facility] [address] [place] [address] Name, MD Kiel [address] [place] [address] Chronic pain syndrome Social History Tobacco Use [...] 10/29/2024 9:30 AM EDT Medication Management [address] [address] PuiaReidKatlyn, PharmD [address] [place] [address] 11/15/2024 11:30 AM EDT Clinical Support [address] [address] Opal Steiner RN documented as of this [...] documented as of this encounter Care Teams Chemical Laboratory Assistant Relationship Specialty Start Date End Date Name, MD Kiel [address] [place] [address] PCP - General Family Medicine 07/15/15 Katlyn Rodriguez PharmD 230 [place] [address] Pharmacist Internal Medicine 10/08/22 Nehal Ann RN [address] [place] [address] Registered Nurse Family Medicine 08/20/24 Ania Spencer 08/20/24 Marta Ovalle Pack OperatorPerformance Solutions Specialist 05/25/23 documented as of this encounter
--- OUTSIDE RECORDS SUMMARY | 2024-10-26 14:52 | XMS_ITS | Encounter Summary ---
Author Organization [employer] Address [address] [facility] 7t [place] [address] Care Team Providers Care Block Saw Operator Name Role Phone Name, Kiel BAILEY Primary Care Provider Katlyn Rodriguez PharmD Unavailable [phone] Nehal Ann RN Unavailable [phone] Ania Spencer Unavailable Reason for Visit * Reason Comments Med Refill Encounter Details Date Type Department Care Team (Late st Contact Info) Description 06/27/2023 Refill [facility] 230 [place] [address] Katlyn Rodriguez, PharmD 230 [place] [address] Tobacco use disorder Social History Tobacco Use [...] Description 10/29/2024 9:30 AM EDT Medication Management [address] [address] Puia, Katlyn, PharmD [address] [place] [address] 11/15/2024 11:30 AM EDT Clinical Support [address] [address] Opal Steiner RN documented as of this [...] documented as of this encounter Care Teams Block Saw Operator Relationship Specialty Start Date End Date Name, MD Kiel 230 [place] [address] PCP - General Family Medicine 07/15/15 Katlyn Rodriguez PharmD [address] [place], [place] [phone] Pharmacist Internal Medicine 10/08/22 Nehal Ann, MARINA [address] [place] [address] Registered Nurse Family Medicine 08/20/24 Ania Spencer 08/20/24 Marta Ovalle Securities AttorneyExchange Mechanic 05/25/23 documented as of this encounter
--- OUTSIDE RECORDS SUMMARY | 2024-10-26 14:52 | XMS_ITS | Encounter Summary ---
Author Organization [employer] Address [address] [facility] 7t [place] [address] Care Team Providers Care Loading Machine Tool Setter Name Role Phone Name, Kiel BAILEY Primary Care Provider [phone] Katlyn Rodriguez PharmD Unavailable [phone] Nehal Ann RN Unavailable [phone] Ania Spencer Unavailable Reason for Visit * Reason Onset Date Comments Reschedule 08/01/2023 Encounter Details Date Type Department Care Team (Late st Contact Info) Description 08/01/2023 Telephone [facility] 230 [place], [place] [phone] Name, MD Kiel 230 [place], [place] [phone] Reschedule Social History Tobacco Use Types Packs/Day [...] 08/01/2023 9:55 AM EDT Triage call with [employer] Animal Health Technician [place] [id number] . Pt reports Covid + test this [...] 08/01/2023 9:04 AM EDT Patient cancelled todays MASTER WELDER RV appt today. Pt's MASTER WELDER appt has been rescheduled for chronic pain [...] AM EDT Tc from pt requesting r/s MASTER WELDER appt, stated is sick and suspect is COVID documented in this encounter Plan of Treatment Upcoming Encounters Date Type Department Care Team (Late st Contact Info) Description 10/29/2024 9:30 AM EDT Medication Management [facility] [address] [place] [address] Katlyn Rodriguez, AngieD 230 [place] [address] 11/15/2024 11:30 AM EDT Clinical Support [facility] [address] [place] [address] Opal Steiner, RN documented as of this [...] documented as of this encounter Care Teams Loading Machine Tool Setter Relationship Specialty Start Date End Date Name, MD Kiel [address] [place] [address] PCP - General Family Medicine 07/15/15 Puia, Katlyn, PharmD 230 [place] [address] Pharmacist Internal Medicine 10/08/22 Nehal Ann, MARINA [address] [place] [address] Registered Nurse Family Medicine 08/20/24 Ania Spencer 08/20/24 Marta Ovalle Air Traffic CoordinatorWire Annealer 05/25/23 documented as of this encounter
--- OUTSIDE RECORDS SUMMARY | 2024-10-26 14:52 | XMS_ITS | Encounter Summary ---
Author Organization [employer] Address [address] [place] [address] 7t [place] [address] Care Team Providers Care Hydraulic Press Operator Name Role Phone Name, Kiel BAILEY Primary Care Provider [phone] Katlyn Rodriguez PharmD Unavailable Nehal Ann RN Unavailable [phone] Ania Spencer Unavailable Reason for Visit * Reason Onset Date Comments Nurse Triage 07/04/2024 Encounter Details Date Type Department Care Team (Late st Contact Info) Description 07/04/2024 Telephone [facility] 230 [place], [place] [phone] Name, MD Kiel [address] [place], [place] [phone] Nurse Triage Social History Tobacco Use Types [...] 07/04/2024 11:25 AM EDT Triage call with [facility] Vice President Diversity [place] [id number]. Pt reports headache over the entire head. No involvement with eye area. BP is 104/60. Pt has been seen by neurologist at [facility] and is being tested for possible tumor. Pt was prescribed dexamethasone byneurologist. Pt pain is moderate . Pt has been prescribed roxicodone 10mg starting 06/28/24 but, reports pharmacy wouldn't fill prescription last time contacted. Pt daughter is speaking for Pt at this time. Daughter is advised to call [facility] for prescription of roxicodone which [...] caller accepted this outcome. Contact pt at [phone] (citizen of [place]) documented in this encounter Plan of Treatment Upcoming Encounters Date Type Department Care Team ([facility] st Contact Info) Description 10/29/2024 9:30 AM EDT Medication Management [address] [address] Puia, Katlyn, PharmD [address] [place] [address] 11/15/2024 11:30 AM EDT Clinical Support [address] [address] Opal Steiner RN documented as of this [...] documented as of this encounter Care Teams Hydraulic Press Operator Relationship Specialty Start Date End Date Name, MD Kiel [address] [place] [address] PCP - General Family Medicine 07/15/15 Katlyn Rodriguez PharmD [address] [place] [address] Pharmacist Internal Medicine 10/08/22 Nehal Ann, MARINA [address] [place] [address] Registered Nurse Family Medicine 08/20/24 Ania Spencer 08/20/24 Marta Ovalle Director Of Instrumental MusicPicture Painter 05/25/23 documented as of this encounter
--- OUTSIDE RECORDS SUMMARY | 2024-10-26 14:52 | XMS_ITS | Encounter Summary ---
Author Organization [employer] Address [address] [place] [address] 7t [place] [address] Care Team Providers Care Financial Foundations Associate Name Role Phone Name, Kiel BAILEY Primary Care Provider [phone] Katlyn Rodriguez PharmD Unavailable [phone] Nehal Ann RN Unavailable [phone] Ania Spencer Unavailable Encounter Details Date Type Department Care Team ([facility] Contact Info) Description 07/01/2022 Abstract [facility] [address] [place] [address] Name, MD Kiel 230 [place], [place] [phone] Social History Tobacco Use Types Packs/Day Years [...] Upcoming Encounters Date Type Department Care Team ([facility] Contact Info) Description 10/29/2024 9:30 AM EDT Medication Management [facility] 230 [facility] [place] [address] Katlyn Rodriguez PharmD [address] [place] [address] 11/15/2024 11:30 AM EDT Clinical Support [facility] 230 [place] [address] Opal Steiner RN documented as of this encounter Procedures Procedure Name Priority Date/Time Associated Diagnosis Comments COLONOSCOPY Routine 07/01/2022 4:37 PM EDT documented in this encounter Results * Colonoscopy (07/01/2022 4:37 PM EDT) Colonoscopy Normal Normal Narrative Emely Devine - 07/01/2022 4:37 PM EDT Recommended 5 year follow up ([facility]) Historical Provider [facility] Final Result documented in this encounter Visit Diagnoses Not on filedocumented in this encounter Care Teams Financial Foundations Associate Relationship Specialty Start Date End Date Name, MD Kiel [address] [place] [address] PCP - General Family Medicine 07/15/15 Katlyn Rodriguez, Bin [address] [place] [address] Pharmacist Internal Medicine 10/08/22 Nehal Ann, MARINA [address] [place] [address] Registered Nurse Family Medicine 08/20/24 Ania Spencer 08/20/24 Marta Ovalle Clinical AsstTrap Operator 05/25/23 documented as of this encounter
--- OUTSIDE RECORDS SUMMARY | 2024-10-26 14:52 | XMS_ITS | Clinical Summary ---
Author Organization [employer] Address [address] [place] [address] 7[address] [place] [address] Care Team Providers Care Life Enrichment Assistant Name Role Phone Name, Kiel BAILEY Primary Care Provider [phone] Katlyn Rodriguez PharmD Unavailable Nehal Ann RN Unavailable [phone] Ania Spencer Unavailable Allergies Active Allergy [...] or chew. 90 tablet 3 025 Active OXcarbazepine (Trileptal) 300 MG tablet [...] complication, with long-term current use of insulin ([facility]) Inject 15 mg under the skin 1 (one) time per week. 2 mL Active ezetimibe (Zetia) 10 MG tabletIndicatio ns:Type 2 diabetes mellitus with other specified complication, with long-term current use of insulin ([facility]) TAKE 1 TABLET BY MOUTH EVERY MORNING 30 tablet Active cetirizine (ZyrTEC) 10 MG tablet TAKE 1 TABLET BY MOUTH EVERY MORNING 90 tablet Active lidocaine (Lidoderm) 5 % patch APPLY 1 PATCH TOPICALLY TO SKIN, LEAVE ON FOR 12 HOURS AND OFF FOR 12 HOURS DIRECTED NEEDED FOR MILD PAIN 30 patch Active rosuvastatin (Crestor) 40 MG tabletIndicatio ns:Type 2 diabetes mellitus with other specified complication, with long-term current use of insulin ([facility]),Histo ry of stroke,Tobacco use disorder,Hypert riglyceridemia Take 1 tablet (40 mg) by mouth Once per day. 90 tablet Active gabapentin (Neurontin) 800 MG tablet Take 1 tablet (800 mg) by mouth 3 times daily. 90 tablet 025 2025 Active famotidine (Pepcid) 20 MG tablet TAKE 1 TABLET BY MOUTH TWICE DAILY IN THE MORNING AND IN THE EVENING 180 tablet Active aspirin 81 MG chewable tabletIndicatio ns:Type 2 diabetes mellitus with other specified complication, with long-term current use of insulin ([facility]) Chew 1 tablet (81 mg) in the evening. 90 tablet Active metFORMIN XR (Glucophage-XR) 500 MG 24 hr tabletIndicatio ns:Type 2 diabetes mellitus with obesity ([facility]/HCC) ([facility]) Take 1 tablet (500 mg) by mouth at bedtime. 90 tablet 025 Active losartan (Cozaar) 50 MG tabletIndicatio ns:Essential hypertension TAKE 1 TABLET BY MOUTH EVERY MORNING 90 tablet Active meloxicam (Mobic) 7.5 MG tablet TAKE 1 TABLET BY MOUTH ONCE DAILY 30 tablet Active TechLite Pen Timblin 32G X 4 MM miscIndications :Type 2 diabetes mellitus with other specified complication (CMS/HCC) USE DIRECTED FOUR TIMES DAILY 100 each 025 Active Blood Glucose Monitoring Suppl (FreeStyle Lite) deviceIndicatio ns:Type 2 diabetes mellitus with other specified complication, with long-term current use of insulin ([facility]) Inject 1 each under the skin 2 times daily. Use to test blood sugar as directed 1 each 025 Active glucose blood (FREESTYLE LITE) test stripIndication s:Type 2 diabetes mellitus with other specified complication, with long-term current use of insulin ([facility]) Use to test blood sugar 2 times daily 50 strip Active TRUEplus Lancets 33G miscIndications :Type 2 diabetes mellitus with other specified complication, with long-term current use of insulin ([facility]) Use to test blood sugar twice daily as directed 100 each 025 Active insulin glargine (Lantus SoloStar) 100 UNIT/ML penIndications: Type 2 diabetes mellitus with other specified complication, with long-term current use of insulin ([facility]) Inject 40 Units under the skin at bedtime. 15 mL 5 025 Active lidocaine (Lidoderm) 5 % patchIndication s:Nondisplaced fracture of right radial styloid process, initial encounter for closed fracture Apply 1 patch topically Once per day. Remove & discard patch within 12 hours or as directed by MD. 30 patch 1 025 Active oxyCODONE (Roxicodone) 10 MG immediate release tabletIndicatio ns:Cerebellar mass,Chronic intractable headache, unspecified headache type Take 1 tablet (10 mg) by mouth 3 times daily for 28 days. Do not start before October 19, 2024. 84 tablet 025 2024 Active traZODone (Desyrel) 100 MG tablet Take 1 tablet (100 mg) by mouth if needed at bedtime for sleep. 30 tablet 3 025 Active PARoxetine (Paxil) 40 MG tablet TAKE 1 TABLET BY MOUTH AT BEDTIME 30 tablet 025 Active cloNIDine (Catapres) 0.1 MG tabletIndicatio ns:Psychophysio logical insomnia TAKE 1 TABLET BY MOUTH AT BEDTIME 30 tablet 1 Active Misc. Devices (Ezy Dose Pill Cutter) misc Use to cut tablets in half Active albuterol (2.5 MG/3ML) 0.083% nebulizer solution INHALE 1 AMPULE USING A NEBULIZER EVERY 6 HOURS NEEDED FOR WHEEZING 75 mL 023 2024 Discontinued(M ed list cleanup (will not trigger notification to Pharmacy)) TechLite Plus Pen Timblin 32G X 4 MM misc USE FOUR TIMES DAILY DIRECTED 100 each 11 024 2024 Discontinued Diclofenac Sodium 1 % gel Apply 2 g topically if needed in the morning, at noon, in the evening, and at bedtime (pain). 150 g 3 024 2024 Discontinued(M ed list cleanup (will not trigger notification to Pharmacy)) cloNIDine (Catapres) 0.1 MG tabletIndicatio ns:Psychophysio logical insomnia TAKE 1 TABLET BY MOUTH AT BEDTIME 30 tablet 1 025 2024 Discontinued(R eorder (will not trigger notification to Pharmacy)) PARoxetine (Paxil) 40 MG tablet TAKE 1 TABLET BY MOUTH AT BEDTIME 30 tablet 025 2024 Discontinued(R eorder (will not trigger notification to Pharmacy)) traZODone (Desyrel) 100 MG tablet Take 100 mg by mouth if needed at bedtime for sleep. 025 2024 Discontinued(R eorder (will not trigger notification to Pharmacy)) TRUEplus Lancets 33G miscIndications :Type 2 diabetes mellitus with other specified complication, with long-term current use of insulin ([facility]) Use to test blood sugar twice daily as directed 100 each 025 2024 Discontinued(R eorder (will not trigger notification to Pharmacy)) Continuous Glucose Sensor (FreeStyle Shira 3 Plus Sensor) miscIndications :Type 2 diabetes mellitus with other specified complication, with long-term current use of insulin ([facility]) Apply 1 every 15 days as directed for CGM 2 each 025 2024 Discontinued(P atient refused) glucose blood (FreeStyle Precision Dimitri Test) test stripIndication s:Type 2 diabetes mellitus with other specified complication, with long-term current use of insulin ([facility]) Use to test blood sugar up to 2 times daily, as directed 100 each 11 025 2024 Discontinued(A lternate therapy) insulin glargine (Lantus SoloStar) 100 UNIT/ML penIndications: Type 2 diabetes mellitus with other specified complication, with long-term current use of insulin ([facility]) Inject 38 units subQ once [...] September 21, 2024. 84 tablet 025 2024 Discontinued ibuprofen 600 MG tabletIndicatio ns:Chronic intractable headache, [...] ACS, but in light of severe pain 11/30, patient seems to be very uncomfortable and is unable to take a deep breath, I decided to call EMS and sent her to the hospital Case was presented to [facility] emergency room Hemiparesis of left dominant side 08/11/2024 Assessment & Plan (08/17/2024 1:36 PM EDT): Patient will benefit from PT evaluation and after evaluation at the hospital to be referred to acute PT center Cerebrovascular accident (CVA) 08/11/2024 History of stroke 07/30/2024 Cerebellar mass 06/28/2024 Chronic, continuous use of opioids 11/29/2023 Overview (11/29/2023): Dx: OA knee Tx: oxycodone 10mg BID [employer] last signed: 05/03/23 Chronic pain syndrome 05/03/2023 [...] PM EST): I presented the case to [facility] emergency room, patient will go [...] EST): Pt reports epidsode of confusion in [facility], declines neuro referral today, reviewed s.s requiring [...] tolerate CPAP On nocturnal oxygen [place] [facility] [place] Cocaine abuse, [...] 01/29/2022 06/28/2024 Fall on hard surface 01/29/2022 05/ 025 Assessment & Plan (04/06/2023 5:50 PM [...] for Paxlovid sent to the pharmacy -Utilized Welsh drug interaction counter checker to assess interactions with current med [...] Encounters Date Type Department Care Team Description 10/18/2024 Refill [facility] [address] [place] [address] Name, MD Kiel Psychophysiological insomnia 10/18/2024 Refill [facility] [address] [place] [address] Lizzie Alfaro NP Cerebellar mass; Chronic intractable headache, unspecified headache type 10/17/2024 Patient Outreach [facility] [address] [place], [place] [id number] Name, MD Kiel Care Coordination (C3CM f/u call- LVM) 10/16/2024 Patient Outreach [facility] [address] [place] [address] Kiel Shaffer MD 10/09/2024 2:00 PM EDT [facility] [address] [address] Sarita Baker MD Essential hypertension (Primary Dx); Nondisplaced fracture of right radial styloid process, initial encounter for closed fracture 10/09/2024 Travel 10/09/[address] [address] Kiel Shaffer MD ER Follow-up; Nurse Triage 10/09/[address] [address] Kiel Shaffer MD No Show 10/06/2024 Orders Only [facility] External Provider, [facility] 10/05/[address] [address] Kiel Shaffer MD Referral 10/04/2024 Patient Outreach [address] [address] Kiel Shaffer MD Care Management ([facility] TC #2-lvm) 10/02/2024 10:40 AM EDT Office Visit [address] [address] Victorino Graves MD Acute otitis externa of left ear, unspecified type (Primary Dx) 10/02/[address] [address] Kiel Shaffer MD 10/02/2024 Travel 09/28/[address] [address] Kiel Shaffer MD Type 2 diabetes mellitus with other specified complication ([facility]) 09/21/2024 Patient Outreach [address] [address] Kiel Shaffer MD Care Management (C3 TC #1-lvm) 09/19/2024 9:00 AM EDT Clinical Support [address] [address] Obdulia, Opal, RN Long-term current use of opiate analgesic (Primary Dx) 09/19/2024 Refill [facility] [address] [place] [address] Opal Steiner, RN Cerebellar mass; Chronic intractable headache, unspecified headache type 09/19/2024 Travel 09/12/2024 Refill [facility] [address] [place] [address] Kiel Shaffer MD 09/10/2024 Refill [facility] [address] [place] [address] Katlyn Rodriguez PharmD Essential hypertension 09/06/2024 Orders Only [facility] [address] [place] [address] Lizzie Alfaro NP Left arm weakness (Primary Dx) 09/06/2024 Orders Only [facility] [address] [place] [address] Lizzie Alfaro NP Weakness of both lower extremities (Primary Dx); Hemiparesis of left dominant side as late effect of cerebral infarction (CMS/HCC) 09/06/2024 Telephone [facility] [address] [place] [address] Kiel Shaffer MD PT Order 09/06/[address] [address] Kiel Shaffer MD Requesting Call Back 09/05/2024 11:30 AM EDT Office Visit [address] [address] Sravanthi Robbins MD Type 2 diabetes mellitus with other specified complication, with long-term current use of insulin (CMS/HCC) (Primary Dx); Left ear pain; Impacted cerumen of right ear; Excessive cerumen in ear canal, left; Essential hypertension; Dietary counseling; Exercise counseling; Class 3 severe obesity due to excess calories with serious comorbidity and body mass index (BMI) of 40.0 to 44.9 in adult 09/05/2024 Telephone [facility] [address] [place] [address] Kiel Shaffer MD Medication Question; Prior Authorization 09/05/2024 Patient Outreach [facility] [address] [place] [address] Kiel Shaffer MD 09/05/2024 Travel 09/05/2024 Telephone [facility] [address] [place] [address] Kiel Shaffer MD Prior Authorization 09/05/2024 Telephone [facility] [address] [place] [address] Kiel Shaffer MD Nurse Triage 09/04/2024 Plan of Care Documentation [facility] [address] [place] [address] 09/04/2024 Refill [facility] [address] [place] [address] Kiel Shaffer MD Cerebellar mass; Chronic intractable headache, unspecified headache type 09/04/2024 Patient Outreach [facility] [address] [place] [address] Kiel Shaffer MD Care Coordination ([facility] initial assessment/ enrollment) 09/04/2024 Patient Outreach [facility] [address] [place] [phone] Kiel Shaffer MD 09/03/2024 5:40 PM EDT Office Visit [facility] [address] [place] [address] Sergio Troy MD Non-recurrent acute suppurative otitis media of left ear without spontaneous rupture of tympanic membrane (Primary Dx) 09/03/2024 Orders Only [facility] [address] [place] [address] Sergio Troy MD 09/03/2024 Travel 08/30/2024 Telephone [facility] [address] [place] [address] Kiel Shaffer MD Referral 08/29/2024 Telephone [facility] [address] [place] [address] Kiel Shaffer MD Medication Question 08/22/2024 Refill [facility] [address] [place] [address] Katlyn Rodriguez, Bin Type 2 diabetes mellitus with other specified complication, with long-term current use of insulin ([facility]/HCC); Type 2 diabetes mellitus with obesity (CMS/HCC) ([facility]/HCC) 08/22/2024 Patient Outreach [facility] [address] [place] [address] Kiel Shaffer MD 08/22/2024 Refill [facility] [address] [place] [address] Kiel Shaffer MD Urticaria 2024 Patient Outreach [facility] [address] [place] [address] Kiel Shaffer MD Care Coordination (C3/CM Outreach) 2024 Refill [facility] [address] [place] [address] Katlyn Rodriguez, AngieD Type 2 diabetes mellitus with other specified complication, with long-term current use of insulin (CMS/[facility]); Type 2 diabetes mellitus with obesity (CMS/HCC) ([facility]) 08/20/2024 1:45 PM EDT Office Visit [facility] [address] [place] [address] Kiel Shaffer MD Thalamic pain syndrome (Primary Dx) 08/20/2024 Travel 08/20/2024 Patient Outreach [address] [address] Kiel Shaffer MD Care Coordination (C3/CM Chart Review) 08/20/[address] [address] Kiel Shaffer MD Appointment Request 08/20/[address] [address] Kiel Shaffer MD ER Follow-up 08/20/[address] [address] Opal Steiner RN NCNS for [employer] TRIM[employer] RV today 08/20/2024 Patient Outreach [facility] [address] [place] [address] Kiel Shaffer MD Care Coordination (C3CM Chart review) 08/20/2024 Patient Outreach [facility] [address] [place] [address] Kiel Shaffer MD 08/17/2024 9:20 AM EDT Office Visit [facility] [address] [place] [address] Sarita Baker MD Other chest pain; Gait instability; Hemiparesis of left dominant side as late effect of cerebral infarction (CMS/HCC) 08/17/[address] [address] Kiel Shaffer MD Referral 08/17/[address] [address] Sarita Baker MD Nurse Triage 08/17/2024 Travel 08/16/[address] [address] Katlyn Rodriguez, AngieD Prior Authorization ([facility]; Shira 3) 08/16/2024 Travel 08/15/2024 9:30 AM EDT Clinical Support [address] [address] Meghan Ramirez, MARINA Bilateral impacted cerumen 08/15/2024 Travel 08/15/2024 [facility]ill [facility] [address] [place] [address] Victorino Graves MD 08/13/[address] [address] Renetta Power, MARINA 08/11/2024 9:20 AM EDT [facility] [address] [place] [address] Kiel Shfafer MD Hemiparesis of left dominant side, unspecified hemiparesis etiology (CMS/HCC) (Primary Dx); Dizziness; Frequent falls; Cerebrovascular accident (CVA), unspecified mechanism (CMS/HCC); Bilateral impacted cerumen 08/11/2024 Travel 08/07/[address] [address] Kiel Shaffer MD Nurse Triage 08/07/[address] [address] Kiel Shaffer MD Cerebellar mass; Chronic intractable headache, unspecified headache type 08/06/2024 9:30 AM EDT Office Visit [address] [address] Lizzie Alfaro NP Hospital discharge follow-up (Primary Dx); Hemiparesis of left dominant side, unspecified hemiparesis etiology (CMS/HCC); Wheezing; Frequent falls; Nonintractable headache, unspecified chronicity pattern, unspecified headache type 08/06/[address] [address] Barbara Martinez [place] october recalls 08/06/2024 Travel 08/03/[address] [address] Kiel Shaffer MD FYI 08/03/[address] [address] Kiel Shaffer MD Referral 08/03/[address] [address] Kiel Shaffer MD FYI 08/03/2024 Patient Outreach [address] [address] Kiel Shaffer MD 08/02/2024 Patient Outreach [facility] [address] [place] [address] Kiel Shaffer MD Transition Of Care (Tcm) (HDF scheduled. ) 08/02/[address] [address] Kiel Shaffer MD Hospital Follow-up 07/30/2024 9:00 AM EDT Office Visit [facility] [address] [address] Lizzie Alfaro NP Shortness of breath (Primary Dx); Left arm weakness; History of stroke 07/30/2024 Orders Only [facility] External Provider, [facility] 07/30/2024 Travel 07/27/2024 10:00 AM EDT Office Visit [address] [address] Name, MD Kiel COPD exacerbation ([facility]) (Primary Dx); Type 2 diabetes mellitus with other specified complication, with long-term current use of insulin ([facility]); Cerebellar mass 07/27/2024 Travel 07/26/2024 Telephone [facility] [address] [place] [address] Keely Leija MA Chart Prep from Last 3 Months Immunizations Immunization Administration Dates Next Due HepB-CpG 11/05/2022,10/08/2022 Influenza Injectable Quadriv alant Preservative Free IIV4 MDCK 11/05/2022 Influenza Whole 11/06/2010 Influenza injectable quadriv alent IIV4 with preservative 01/09/2016 Influenza injectable quadriv alent preservative free 11/13/2021,01/21/2021,01/07/2020,12/13,01/30/2018 Influenza, IIV3, injectable 02/03/2016,1 ,12/16/2013,02/23,11/02/2012,10/26/2011,01/13/2011 ,11/03/2010,11/21/2009 Influenza, seasonal, injecta ble, preservative free 11/29/2023 Novel [id number], all formulations 05/31/2009 Pneumococcal Conjugate PCV 20 [...] 10/29/2024 9:30 AM EDT Medication Management [address] [address] Katlyn Rodriguez, PharmD [address] [place] [address] 11/15/2024 11:30 AM EDT Clinical Support [address] [address] Opal Steiner, RN Health Maintenance Due Date Last Done Comments CT Colonography 1965 FIT DNA/Cologuard 1965 FIT 1965 FOBT 1965 HIV Screening 1965 Sigmoidoscopy 1965 Hepatitis C Screening 08/22/1983 Pap Smear 1986 HPV/Cotest 08/22/1995 Diabetes: Urine Protein Screening 05/25/2024 05/26/2023, 08/30/2022 Diabetes: Foot Exam 10/19/2024 10/20/2023, 10/20/2023, 10/20/2023, Additional history exists COVID-19 Vaccine ( season) 2024 12/15/2021, 03/13/2021, 08/18/2020, Additional history exists Influenza Vaccine (#1) 2024 , 11/05/2022, 11/13/2021, Additional history exists Eye Exam 12/16/2024 12/17/2023, 040 06/2022, 03/14/2012 Diabetes: Hemoglobin A1C 01/02/2025 025, [...] Blood Pressure 150/87(2024 2:08 PM EDT) No Reid Rodriguezyssa, PharmD Hemoglobin A1c < 7 Result Component 7.5( 11:12 AM EDT) No Jennifer Katlyn, PharmD Record your blood sugar as directed Result Component No Jennifer Katlyn, PharmD Procedures Procedure Name Priority Date/Time Associated Diagnosis Comments XR HAND 3+ VIEWS RIGHT Routine 5:17 PM EDT XR WRIST 3+ VIEWS RIGHT Routine 10/07/19 5:12 PM EDT POCT GLYCATED HEMOGLOBIN, TOTAL Routine 10/02/2024 11:12 AM EDT Type 2 diabetes mellitus with other specified complication, with long-term current use of insulin ([facility]) POCT KEELEY-14 URINE DRUG SCREEN Routine 09/19/2024 9:09 AM EDT Long-term current use of opiate analgesic CA REMOVAL IMPACTED CERUMEN INSTRUMENTATION UNILAT Routine 09/05/2024 [...] with long-term current use of insulin (CMS/[facility]) LIPID PANEL WITH REFLEX TO DIRECT LDL Routine 06/18/2024 8:18 AM EDT BI MAMMOGRAM SCREENING TOMOSYNTHESIS BILATERAL Routine 06/03/2023 8:45 AM EDT ALBUMIN, RANDOM URINE W/CREATININE Routine 05/26/2023 8:27 AM EDT Type 2 diabetes mellitus with other specified complication, with long-term current use of insulin (CMS/[facility]) Rib pain on left side HM COLONOSCOPY Routine 07/01/2022 4:37 PM EDT DIABETES EYE EXAM Routine 05/26/2022 from Last 3 Months or Most Recently Relevant to Health Maintenance Results * XR Hand 3+ Views Right (10/06/2024 5:17 PM EDT) Anatomical Region Laterality Modality Upper Extremities, Hand Right [facility] 10/06/2024 5:17 PM EDT Narrative 10/06/2024 5:18 PM EDT [address] [address] XRay Report Signed Patient: Sarita Puga MR#: [id number] 92 : 1965 Acct:[id number] Age/Sex: 59 / F ADM Date: 10/06/24 Loc: HO.ED Attending Dr: Ordering Physician: Justina Perez NP Date of Service: 10/06/24 Procedure(s): XR hand RT min 3V Accession Number(s): [id number] cc: Kiel Shaffer MD; Justina Perez NP [...] in OV> 10/06/241717 DD/ 16 TD/TT: 10/06/241716 Validation Specialist: Procedure Note Donotramakrishnainterpreter, Image - 10/06/2024 [place] [address] XRay Report Signed Patient: Sarita Puga [facility]#: [id number] 92 : 1965Acct:[id number] Age/Sex: 59 / FADM Date: 10/06/24 Loc: HO.ED Attending Dr: Ordering Physician: Justina Perez NP Date of Service: 10/06/24 Procedure(s): XR hand RT min 3V Accession Number(s): [id number] cc: Kiel Shaffer MD; Justina Perez NP [...] Velasquez MD Signed By: <Electronically signed by oJjo Velasquez MD in OV> 10/06/241717 DD/ 16 TD/TT: 10/06/241716 Validation Specialist: [facility] External Provider IMG XR PROCEDURES Edited Result - Final * XR Wrist 3+ Views Right (10/06/2024 5:12 PM EDT) Anatomical Region Laterality Modality Upper Extremities, Wrist Right Radiogr aphic Imaging 10/06/2024 5:12 PM EDT Narrative 10/06/2024 5:14 PM EDT [place] [address] XRay Report Signed Patient: Sarita Puga MR#: [id number] 92 : 1965 Acct:[id number] Age/Sex: 59 / F ADM Date: 10/06/24 Loc: HO.ED Attending Dr: Ordering Physician: Justina Perez NP Date of Service: 10/06/24 Procedure(s): XR wrist RT min 3V Accession Number(s): [id number] cc: NameKiel MD; Justina Perez NP CLINICAL HISTORY: fall, [...] in OV> 10/06/241712 DD/ 11 TD/TT: 10/06/241711 Validation Specialist: Procedure Note Donotyouter, Image - 10/06/2024 [place] [address] XRay Report Signed Patient: Sarita Puga MMR#: [id number] 92 : 1965Acct:[id number] Age/Sex: 59 / FADM Date: 10/06/24 Loc: .ED Attending Dr: Ordering Physician: Justina Perez NP Date of Service: 10/06/24 Procedure(s): XR wrist RT min 3V Accession Number(s): [id number] cc: Name,Kiel BAILEY; Justina Perez NP CLINICAL [...] in OV> 10/06/241712 DD/ 11 TD/TT: 10/06/241711 Validation Specialist: [facility] External Provider IMG XR PROCEDURES Edited Result - Final * (ABNORMAL) POCT HGB A1C (10/02/2024 11:12 AM EDT) Hemoglobin A1C 7.5(A) 4.0 - 5.7 % [...] procedure / Unknown 09/19/2024 9:09 AM EDT Opla George RN - 09/19/2024 9:09 AM EDT UTOX cup Lot#[id number] Exp. 11/27/25 Internal Pass Control Kiel Shaffer MD POINT OF CARE TEST ENTER/EDIT OR DERABLES Final Result * CA REMOVAL IMPACTED CERUMEN INSTRUMENTATION UNILAT (09/05/2024 11:12 AM EDT) Sravanthi Ramirez MD - 09/05/2024 11:12 AM EDT Sravanthi Robbins MD 09/10/2024 10:23 AM Ear Cerumen Removal Date/Time: 09/05/2024 11:12 AM Performed by: Madalyn Garcia RN Authorized by: Sravanthi Robbins MD Consent: Consent obtained: Verbal Consent given by: Patient Risks discussed: Infection, pain, incomplete removal and dizziness Alternatives discussed: No treatment and delayed treatment [place] protocol: Patient identity confirmed: Verbally with patient Procedure details: Location: L ear and R ear Procedure type: curette Procedure outcomes: cerumen removed Post-procedure details: Inspection: Some cerumen remaining Hearing quality: Normal Procedure completion: Tolerated Comments: Large amount jang black cerumen removed from left ear, tympanic membrane visible afterward, no redness. Right ear incomplete removal. us Sravanthi Robbins MD IN CLINIC/BEDSIDE ORDERABLES Fin al Result * US RENAL BI (08/22/2024 12:11 PM EDT) Anatomical Region Laterality Modality Abdomen Ultrasound 08/22/2024 12:1 1 PM EDT Narrative 08/22/2024 12:12 PM EDT [address] [address] Ultrasound Report Signed Patient: Sarita Puga MR#: [id number] 92 : 1965 Acct:[id number] Age/Sex: 59 / F ADM Date: 08/21/24 Loc: HO.US Attending Dr: Cherelle ROMO Ordering Physician: Cherelle Trujillo Date of Service: 08/21/24 Procedure(s): US renal BI Accession Number(s): [id number] cc: Cherelle Trujillo; Name,Kiel BAILEY CLINICAL HISTORY: [...] 08/22/24 1212 DD/ 1211 TD/TT: 08/22/24 1211 Validation Specialist: Procedure Note Donotuseinterpreter, Image - 08/22/[address] [address] Ultrasound Report Signed Patient: Sarita Puga MMR#: [id number] 92 : 1965Acct:[id number] Age/Sex: 59 / FADM Date: 08/21/24 Loc: HO.US Attending Dr: Cherelle ROMO Ordering Physician: Cherelle Trujillo Date of Service: 08/21/24 Procedure(s): US renal BI Accession Number(s): [id number] cc: Cherelle Trujillo; Name,Kiel BAILEY CLINICAL HISTORY: [...] 08/22/24 1212 DD/ 1211 TD/TT: 08/22/24 1211 Validation Specialist: [facility] External Provider IMG US PROCEDURES Final Result * ECG 12 lead (2024 1:14 PM EDT) Narrative Sarita Baker MD - 2024 1:14 PM EDT NSR Sarita Gonzalez MD ECG ORDERABLES Final Result * CT Head w/o Contrast (08/17/2024 10:10 AM EDT) Only the most recent of2 resultswithin the time period is included. Anatomical Region Laterality Modality Head, Neck Computed Tomogra phy 08/17/2024 10:1 0 AM EDT Narrative 08/17/2024 11:32 AM EDT [place] [address] CT Scan Report Signed Patient: Sarita Puga MR#: [id number] 92 : 1965 Acct:[id number] Age/Sex: 58 / F ADM Date: 08/17/24 Loc: HO.ED Attending Dr: Ordering Physician: Natalie Martell Date of Service: 08/17/24 Procedure(s): CT head/brain wo IV con Accession Number(s): [id number] cc: Natalie Martell; Name,Kiel Report Number: [id number]: Total DLP = 756.00 mGy-cm EXAMINATION: CT [...] 08/17/24 1130 DD/ 1010 TD/TT: 08/17/24 1120 Validation Specialist: Procedure Note Donotuseinterpreter, Image - 08/17/[address] [place] [address] [address] Scan Report Signed Patient: Sarita Puga MMR#: [id number] 92 : 1965Acct:[id number] Age/Sex: 58 / FADM Date: 08/17/24 Loc: HO.ED Attending Dr: Ordering Physician: Natalie Martell Date of Service: 08/17/24 Procedure(s): CT head/brain wo IV con Accession Number(s): [id number] cc: Natalie Martell; Name,Kiel BAILEY Report Number: [id number]: Total DLP = 756.00 mGy-cm EXAMINATION: CT [...] 08/17/24 1130 DD/ 1010 TD/TT: 08/17/24 1120 Validation Specialist: [facility] External Provider IMG CT PROCEDURES Final Result * XR Femur 2+ Views Right (08/17/2024 10:02 AM EDT) Anatomical Region Laterality Modality Lower Extremities, Femur Right Radiogr aphic Imaging 08/17/2024 10:0 2 AM EDT Narrative 08/17/2024 11:23 AM EDT [place] [address] XRay Report Signed Patient: Sarita Puga MR#: [id number] 92 : 1965 Acct:[id number] Age/Sex: 58 / F ADM Date: 08/17/24 Loc: HO.ED Attending Dr: Ordering Physician: Natalie Martell Date of Service: 08/17/24 Procedure(s): XR femur RT 2V Accession Number(s): [id number] cc: Natalie Martell; Name,Kiel BAILEY EXAMINATION: XR [...] Zohaib Murray MD 08/17/2024 11:20 AM EDT RP Dictated By: Zohaib Murray MD Signed By: <Electronically signed by Zohaib Murray MD in OV> 08/17/24 1120 DD/ 1002 TD/TT: 08/17/24 1113 Validation Specialist: Procedure Note Donotuseinterpreter, Image - 08/17/[address] [address] XRay Report Signed Patient: Sarita Puga MMR#: [id number] 92 : 1965Acct:[id number] Age/Sex: 58 / FADM Date: 08/17/24 Loc: .ED Attending Dr: Ordering Physician: Natalie Martell Date of Service: 08/17/24 Procedure(s): XR femur RT 2V Accession Number(s): [id number] cc: Natalie Martell; Name,Kiel BAILEY EXAMINATION: XR [...] Zohaib Murray MD 08/17/2024 11:20 AM EDT RP Dictated By: Zohaib Murray MD Signed By: <Electronically signed by Zohaib Murray MD in OV> 08/17/24 1120 DD/ 1002 TD/TT: 08/17/24 1113 Validation Specialist: [facility] External Provider IMG XR PROCEDURES Final Result * XR Lumbar Spine 2-3 Views (08/17/2024 10:01 AM EDT) Anatomical Region Laterality Modality Spine, L-spine Radiographic Diana ging 08/17/2024 10:0 1 AM EDT Narrative 08/17/2024 11:27 AM EDT [address] [address] XRay Report Signed Patient: Sarita Puga MR#: [id number] 92 : 1965 Acct:[id number] Age/Sex: 58 / F ADM Date: 08/17/24 Loc: HO.ED Attending Dr: Ordering Physician: Natalie Martell Date of Service: 08/17/24 Procedure(s): XR lumbar spine 2-3V Accession Number(s): [id number] cc: Natalie Martell; Name,Kiel BAILEY EXAMINATION: XR [...] 08/17/24 1124 DD/ 1001 TD/TT: 08/17/24 1113 Validation Specialist: Procedure Note Donotuseinterpreter, Image - 08/17/[address] [address] XRay Report Signed Patient: Sarita Puga MMR#: [id number] 92 : 1965Acct:[id number] Age/Sex: 58 / FADM Date: 08/17/24 Loc: HO.ED Attending Dr: Ordering Physician: Natalie Martell Date of Service: 08/17/24 Procedure(s): XR lumbar spine 2-3V Accession Number(s): [id number] cc: Natalie Martell; Name,Kiel BAILEY EXAMINATION: XR [...] 08/17/24 1124 DD/ 1001 TD/TT: 08/17/24 1113 Validation Specialist: [facility] External Provider IMG XR PROCEDURES Final Result * XR Chest 2 Views (08/17/2024 9:56 AM EDT) Only the most recent of2 resultswithin the time period is included. Anatomical Region Laterality Modality Chest Radiographic Diana ging 08/17/2024 9:56 AM EDT Narrative 08/17/2024 11:20 AM EDT [address] [address] XRay Report Signed Patient: Sarita Puga MR#: [id number] 92 : 1965 Acct:[id number] Age/Sex: 58 / F ADM Date: 08/17/24 Loc: .ED Attending Dr: Ordering Physician: Natalie Martell Date of Service: 08/17/24 Procedure(s): XR chest 2V Accession Number(s): [id number] cc: Natalie Martell; Deena,Kiel BAILEY EXAMINATION: XR CHEST 2 VIEWS HISTORY: [...] Kenny Fernandes MD 08/17/2024 11:17 AM EDT Dictated By: Kenny Fernandes MD Signed By: <Electronically signed by Kenny Fernandes MD in OV> 08/17/24 1117 DD/ 0956 TD/TT: 08/17/24 1113 Validation Specialist: Procedure Note Donotuseinterpreter, Image - 08/17/[address] [address] XRay Report Signed Patient: Sarita Puga MMR#: [id number] 92 : 1965Acct:[id number] Age/Sex: 58 / FADM Date: 08/17/24 Loc: .ED Attending Dr: Ordering Physician: Natalie Martell Date of Service: 08/17/24 Procedure(s): XR chest 2V Accession Number(s): [id number] cc: Natalie Martell; Kiel Shaffer MD EXAMINATION: XR CHEST 2 VIEWS HISTORY: fall, [...] 08/17/24 1117 DD/ 0956 TD/TT: 08/17/24 1113 Validation Specialist: [facility] External Provider IMG XR PROCEDURES Final Result * CT Cervical Spine w/o Contrast (08/02/2024 7:26 AM EDT) Anatomical Region Laterality Modality Spine, C-spine Computed Tomogra phy 08/02/2024 7:26 AM EDT Narrative 08/02/2024 7:28 AM EDT [place] [address] CT Scan Report Signed Patient: Sarita Puga MR#: [id number] 92 : 1965 Acct:[id number] Age/Sex: 58 / F ADM Date: 07/30/24 Loc: [facility] 471-[address]: Alexandra SEGURA Ordering Physician: Miguel Dodge MD Date of Service: 08/02/24 Procedure(s): CT cervical spine wo IV con Accession Number(s): [id number] cc: Kiel Shaffer MD; Miguel Dodge MD Report Number: [id number]: Total DLP = 543.00 mGy-cm CLINICAL HISTORY: [...] in OV> 08/02/24726 DD/ 5 TD/TT: 08/02/24725 Validation Specialist: Procedure Note Donotuseinterpreter, Image - 08/02/[address] [place] [address] [address] Scan Report Signed Patient: Sarita Puga [facility]#: [id number] 92 : 1965Acct:[id number] Age/Sex: 58 / FADM Date: 07/30/24 Loc: [facility] 471-[address]: Alexandra SEGURA Ordering Physician: Miguel Dodge MD Date of Service: 08/02/24 Procedure(s): CT cervical spine wo IV con Accession Number(s): [id number] cc: Name,Kiel BAILEY; Miguel Dodge MD Report Number: [id number]: Total DLP = 543.00 mGy-cm CLINICAL HISTORY: [...] in OV> 08/02/24726 DD/ 5 TD/TT: 08/02/24725 Validation Specialist: [facility] External Provider IM CT PROCEDURES Edited Result - Final * XR Hip 2 or 3 Views Left (08/02/2024 7:02 AM EDT) Anatomical Region Laterality Modality Lower Extremities, Hip Left Radiograp hic Imaging 08/02/2024 7:02 AM EDT Narrative 08/02/2024 7:04 AM EDT [address] [address] XRay Report Signed Patient: Sarita Puga MR#: [id number] 92 : 1965 Acct:[id number] Age/Sex: 58 / F ADM Date: 07/30/24 Loc: [facility] [employer] Attending Dr: Nikki Ovalle CHERRY GROWER Ordering Physician: Miguel Dodge MD Date of Service: 08/02/24 Procedure(s): XR hip LT min 2V Accession Number(s): [id number] cc: Name,Kiel BAILEY; Miguel Dodge MD CLINICAL HISTORY: fall 3 [...] Diaz MD in OV> 08/02/24 0704 DD/ 0702 TD/TT: 08/02/24 0702 Validation Specialist: Procedure Note Donotuseinterpreter, Image - 08/02/[address] [address] XRay Report Signed Patient: Sarita Puga MMR#: [id number] 92 : 1965Acct:[id number] Age/Sex: 58 / FADM Date: 07/30/24 Loc: [place] [address]: Nikki Ovalle NP Ordering Physician: Miguel Dodge MD Date of Service: 08/02/24 Procedure(s): XR hip LT min 2V Accession Number(s): [id number] cc: Deena,Kiel BAILEY; Miguel Dodge MD CLINICAL HISTORY: fall 3 [...] by Miguel Angel Diaz MD in OV> 08/02/24703 DD/ 1 TD/TT: 08/02/24701 Validation Specialist: [facility] External Provider IMG XR PROCEDURES Edited Result - Final * Influenza B (ID NOW Rapid Molecular) (07/30/2024 9:11 AM EDT) Influenza B Negative Negative, Indeterminate [facility] Swab 07/30/2024 9:11 AM EDT [facility] CHERRY GROWER POINT OF CARE TEST ENTER/EDIT O RDERABLES Final Result Performing Organization Address [facility] Co de Phone Number [facility] [address] [place] [phone] * Influenza A (ID NOW Rapid Molecular) (07/30/2024 9:11 AM EDT) Influenza A Negative Negative, Indeterminate [facility] Swab 07/30/2024 9:11 AM EDT [facility] CHERRY GROWER POINT OF CARE TEST ENTER/EDIT O RDERABLES Final Result Performing Organization Address [facility] Co de Phone Number [facility] [address] [place] [phone] * POCT COVID-19 Ag Cr ID NOW (07/30/2024 9:11 AM EDT) Coronavirus Antigen PCR Negative Negative, Indeterminate, None Detected, Invalid, Specimen unsatisfactory for evaluation, Weakly Positive, 2+ Swab 07/30/2024 9:11 AM EDT Lizzie Alfaro NP POINT OF CARE TEST ENTER/EDIT O RDERABLES Final Result * POCT Glucose (07/27/2024 10:21 AM EDT) Pathologist [facility] Glucose Blood, POC 188 60 - 200 mg/dL QC Media Lot # [id number] Lot# Expiration Date Blood Capillary blood specimen / Unknown 07/27/2024 10:21 AM EDT Kiel Shaffer MD POINT OF CARE TEST ENTER/EDIT OR DERABLES Final Result * (ABNORMAL) Lipid Panel with Reflex to Direct LDL (06/18/2024 8:18 AM EDT) Pathologist [facility] Triglycerides 156(H) <150 mg/dL [facility] Comment:Desirable Triglyceri de: less than 150 mg/dLBorderline High Triglyceride 150-199 mg/dLHigh Triglyceride: 200-499 mg/dLVery High Triglyceride: greater than or equal to 5OO mg/dL Cholesterol 185 <200 mg/dL [facility] Comment:Desirable Cholestero l: less than 200 mg/dLBorderline High Cholesterol: 200-239 mg/dLHigh Cholesterol: greater than 239 mg/dL LDL Cholesterol Calculated 109(H) <100 mg/dL [facility] Comment:Desirable LDL: less than 100 mg/dLNear Optimal/Above Optimal LDL: 110- 129 mg/dLBorderline High LDL: 130-159 mg/dLHigh LDL: 160-189 mg/dLVery High LDL: greater than or equal to 190 mg/dL HDL Cholesterol 45 >40 mg/dL [facility] Comment:Desirable HDL: great er than 40 mg/dL Note: This HDL assay may give artificially low results in patients with liver disease. 06/18/2024 8:18 AM EDT 06/18/2024 11:00 AM EDT us Kiel Shaffer MD LAB BLOOD ORDERABLES Final Resul t [facility] [address] [place] [phone] [phone] * BI Mammogram Screening Tomosynthesis Bilateral (06/03/2023 8:45 AM EDT) Anatomical Region Laterality Modality Breast Bilateral Mammography 06/03/2023 8:45 AM EDT Narrative 06/30/2023 10:24 PM EDT [facility] [address] [place] [address] Mammography Report Signed Patient: Sarita Puga MR#: [id number] 92 : 1965 Acct:[id number] Age/Sex: 57 / F ADM Date: 06/03/23 Loc: HO.MAMMO Attending Dr: Kiel Shaffer MD Ordering Physician: Kiel Shaffer MD Results: 1Negative Date of Service: 06/03/23 Follow Up: 1 Year From Orig ina Mammogram Procedure(s): MM tomosynthesis screening BI Accession Number(s): [id number] cc: Kiel Shaffer MD EXAMINATION: MM SCREENING [...] MD in OV> 06/30/232219 DD/ 0845 TD/TT: Validation Specialist: Procedure Note Donotuseinterpreter, Image - 06/30/2023 [facility] [address] [place], [place] [address] Mammography Report Signed Patient: Sarita Puga MMR#: [id number] 92 : 1965Acct:[id number] Age/Sex: 57 / FADM Date: 06/03/23 Loc: HO.MAMMO Attending Dr: Kiel Shaffer MD Ordering Physician: Kiel Shaffer MDResults: 1Negative Date of Service: 06/03/23Follow Up: 1 Year From Orig inal Mammogram Procedure(s): MM tomosynthesis screening BI Accession Number(s): [id number] cc: Kiel Shaffer MD EXAMINATION: MM SCREENING [...] MD in OV> 06/30/232219 DD/ 0845 TD/TT: Validation Specialist: Kiel Shaffer MD IM BI PROCEDURES Edited Result - Final * Albumin, Random Urine W/Creatinine (05/26/2023 8:27 AM EDT) Creatinine, Urine 185.88 mg/dL [facility] Microalbumin Urine 23.0 mg/L [facility] Microalbum Creatinine Ratio Ur 12.3 <30 ug/mg cr [facility] Comment:Albumin/Creatinine R atio Reference Ranges: Normal: < 30 ug/mg creatinine Microalbuminuria: 30 - 300 ug/mg creatinineClinical Albuminuria: > 300 ug/mg creatinine Urine (Urine, Random) 05/26/2023 8:27 AM EDT 05/26/2023 11:19 AM EDT us Kiel Shaffer MD LAB URINE ORDERABLES Final Resul t [facility] [address] [place] [phone] * Colonoscopy (07/01/2022 4:37 PM EDT) Colonoscopy Normal Normal Narrative Emely Devine - 07/01/2022 4:37 PM EDT [place] 5 [place] [place] [facility] Provider HEALTH MAINTENANCE Final Result * Diabetes Eye Exam (05/26/2022) Eye Exam Normal Normal us Kiel Shaffer MD HEALTH MAINTENANCE Final Result from Last 3 Months or Most Recently Relevant to Health Maintenance Insurance [facility] C3 Member Subscriber Plan / Payer (Ef fective 2024-Present) Name:Sarita Puga Relation to Subscriber:Self Name:Sarita Puga Payer ID:Not on file Group ID:Not on file Type:Medicaid Address: [facility] [id number] [place], [place] C3 Member Subscriber Plan / Payer (Ef fective 2024-Present) Name:Puga Sarita Jeronimo Relation to Subscriber:Self Name:Sarita Puga M Payer ID:Not on file Group ID:Not on file Type:Medicaid Address: [address] [place], [place] [employer] Care Teams Life Enrichment Assistant Relationship Specialty Start Date End Date Name, MD Kiel [address] [place] [phone] PCP - General Family Medicine 07/15/15 Katlyn Rodriguez, PharmD [address] [place] [phone] Pharmacist Internal Medicine 10/08/22 Nehal Ann RN [address] [place] [phone] Registered Nurse Family Medicine 08/20/24 Ania Spencer 08/20/24 Marta Ovalle Beam Carrier Hauler PusherInformation Management Manager 05/25/23
--- OUTSIDE RECORDS SUMMARY | 2024-10-26 14:52 | XMS_ITS | Encounter Summary ---
Author Organization [employer] Address [address] [place] [address] 7t [place] [address] Care Team Providers Care Psychologist Educational Name Role Phone Name, Kiel BAILEY Primary Care Provider [phone] Katlyn Rodriguez PharmD Unavailable Nehal Ann RN Unavailable [phone] Ania Spencer Unavailable Encounter Details Date Type Department Care Team ([facility] Contact Info) Description 02/23/2022 Orders Only [facility] [address] [place] [address] Name, MD Kiel [address] [place] [address] Social History Tobacco Use Types Packs/Day Years [...] Upcoming Encounters Date Type Department Care Team ([facility] Contact Info) Description 10/29/2024 9:30 AM EDT Medication Management [address] [address] Katlyn Rodriguez PharmD [address] [place] [address] 11/15/2024 11:30 AM EDT Clinical Support [address] [address] Opal Steiner, MARINA documented as of this encounter Visit Diagnoses Not on filedocumented in this encounter Care Teams Psychologist Educational Relationship Specialty Start Date End Date Name, MD Kiel [address] [place] [address] [phone] PCP - General Family Medicine 07/15/15 Katlyn Rodriguez, PharmD [address] [place] [address] Pharmacist Internal Medicine 10/08/22 Nehal Ann, MARINA [address] [place] [phone] Registered Nurse Family Medicine 08/20/24 Ania Spencer 08/20/24 Marta Ovalle Cook Fishing VesselPrint Shop Helper 05/25/23 documented as of this encounter
--- OUTSIDE RECORDS SUMMARY | 2024-10-26 14:52 | XMS_ITS | Encounter Summary ---
Author Organization [employer] Address [address] [facility] 7t [place] [address] Care Team Providers Care Front End Manager Name Role Phone Name, Kiel BAILEY Primary Care Provider Katlyn Rodriguez PharmD Unavailable Nehal Ann RN Unavailable [phone] Ania Spencer Unavailable Reason for Visit * Reason Comments Med Refill Encounter Details Date Type Department Care Team (Late st Contact Info) Description 09/07/2023 Refill [facility] [address] [place] [address] Name, MD Kiel [address] [place] [address] Type 2 diabetes mellitus with other specified [...] Description 10/29/2024 9:30 AM EDT Medication Management [address] [address] PuiaReidKatlyn, PharmD [address] [place] [address] 11/15/2024 11:30 AM EDT Clinical Support [address] [address] Opal Steiner RN documented as of this [...] documented as of this encounter Care Teams Front End Manager Relationship Specialty Start Date End Date Name, MD Kiel [address] [place] [address] PCP - General Family Medicine 07/15/15 Katlyn Rodriguez, Bin [address] [place] [address] Pharmacist Internal Medicine 10/08/22 Nehal Ann RN [address] [place] [phone] Registered Nurse Family Medicine 08/20/24 Ania Spencer 08/20/24 Marta Ovalle Host CoordinatorCivil Rights Attorney 05/25/23 documented as of this encounter
--- OUTSIDE RECORDS SUMMARY | 2024-10-26 14:52 | XMS_ITS | Encounter Summary ---
Author Organization [employer] Address [address] [place] [address] [address] [place] [address] Care Team Providers Care Senior Packaging Engineer Name Role Phone Name, Kiel BAILEY Primary Care Provider [phone] Katlyn Rodriguez PharmD Unavailable Nehal Ann RN Unavailable [phone] Ania Spencer Unavailable Reason for Visit * Reason Comments Med Refill Encounter Details Date Type Department Care Team (Late st Contact Info) Description 04/25/2022 Refill [facility] [address] [place], [place] [phone] Name, MD Kiel [address] [place], [place] [phone] Diabetes mellitus type 2 in obese (CMS/HCC) [...] Description 10/29/2024 9:30 AM EDT Medication Management [address] [address] Katlyn Rodriguez PharmD [address] [place] [address] 11/15/2024 11:30 AM EDT Clinical Support [address] [address] Opal Steiner, MARINA documented as of this encounter Visit Diagnoses Diagnosis Diabetes mellitus type 2 in obese- Primary Type II or unspecified type diabetes mellitus without mention of complication, not stated as uncontrolled documented in this encounter Care Teams Senior Packaging Engineer Relationship Specialty Start Date End Date Name, MD Kiel [address] [place] [phone] PCP - General Family Medicine 07/15/15 Katlyn Rodriguez PharmD [address] [place] [phone] Pharmacist Internal Medicine 10/08/22 Nehal Ann, MARINA [address] [place] [phone] Registered Nurse Family Medicine 08/20/24 Ania Spencer 08/20/24 Marta Ovalle Zigzag AppliquerState Comptroller 05/25/23 documented as of this encounter
--- OUTSIDE RECORDS SUMMARY | 2024-10-26 14:52 | XMS_ITS | Encounter Summary ---
Author Organization [employer] Address [address] [facility] 7t [place] [address] Care Team Providers Care Land Leveler Name Role Phone Name, Kiel BAILEY Primary Care Provider Katlyn Rodriguez PharmD Unavailable Nehal Ann RN Unavailable [phone] Ania Spencer Unavailable Reason for Visit * Reason Comments Med Refill Encounter Details Date Type Department Care Team (Late st Contact Info) Description 06/08/[address] [facility] [address] [place] [address] Name, MD Kiel [address] [place] [address] Chronic pain syndrome Social History Tobacco Use [...] Description 10/29/2024 9:30 AM EDT Medication Management [address] [address] PuiaReidKatlyn, PharmD [address] [place] [address] 11/15/2024 11:30 AM EDT Clinical Support [address] [address] Opal Steiner RN documented as of this [...] documented as of this encounter Care Teams Land Leveler Relationship Specialty Start Date End Date Name, MD Kiel [address] [place] [address] PCP - General Family Medicine 07/15/15 Katlyn Rodriguez PharmD [address] [place] [address] Pharmacist Internal Medicine 10/08/22 Nehal Ann RN [address] [place] [address] Registered Nurse Family Medicine 08/20/24 Ania Spencer 08/20/24 Marta Ovalle Social Media InternMarksmanship Instructor 05/25/23 documented as of this encounter
--- OUTSIDE RECORDS SUMMARY | 2024-10-26 14:52 | XMS_ITS | Encounter Summary ---
Author Organization [employer] Address [address] [facility] 7t [place] [address] Care Team Providers Care Lighthouse Keeper Name Role Phone Name, Kiel BAILEY Primary Care Provider [phone] Katlyn Rodriguez PharmD Unavailable Nehal Ann RN Unavailable [phone] Ania Spencer Unavailable Reason for Visit * Reason Onset Date Comments Durable Medical Equipment 12/06/2022 Encounter Details Date Type Department Care Team (Late st Contact Info) Description 12/06/2022 Telephone [facility] MEDICINE [address] [place], [place] [phone] Name, MD Kiel [address] [place], [place] [phone] Durable Medical Equipment Social History Tobacco Use [...] to message above. Please contact pt at [phone] (Martiniquais) * Telephone Encounter - Jean-Paul Finch - 12/06/2022 3:29 PM EDT Tc from pt requesting status on some bed absorbant pads to not stain bed. Please contact pt at [phone] Martiniquais Speaker documented in this encounter Plan of Treatment Upcoming Encounters Date Type Department Care Team (Late st Contact Info) Description 10/29/2024 9:30 AM EDT Medication Management [facility] MEDICINE [address] [place] [address] Katlyn Rodriguez, PharmD [address] [place], [place] [phone] 11/15/2024 11:30 AM EDT Clinical Support [facility] [address] [place] [address] Opal Steiner, MARINA documented as of this [...] documented as of this encounter Care Teams Lighthouse Keeper Relationship Specialty Start Date End Date Name, MD Kiel [address] [place] [address] PCP - General Family Medicine 07/15/15 Puia, Katlyn, PharmD [address] [place] [address] Pharmacist Internal Medicine 10/08/22 Nehal Ann RN [address] [place] [address] Registered Nurse Family Medicine 08/20/24 Ania Spencer 08/20/24 Marta Ovalle Tractor Crane OperatorManager Policy 05/25/23 documented as of this encounter
--- OUTSIDE RECORDS SUMMARY | 2024-10-26 14:52 | XMS_ITS | Encounter Summary ---
Author Organization [employer] Address [address] [place] [address] 7t [place] [address] Care Team Providers Care Supervisor Assembly And Packing Name Role Phone Name, Kiel BAILEY Primary Care Provider [phone] Katlyn Rodriguez PharmD Unavailable Nehal Ann RN Unavailable [phone] Ania Spencer Unavailable Reason for Visit * Reason Comments Med Refill Encounter Details Date Type Department Care Team ([facility] Contact Info) Description 06/28/2022 Refill [facility] MEDICINE 230 [place], [place] [phone] Name, MD Kiel 230 [place], [place] [phone] Chronic pain syndrome Social History Tobacco Use [...] Upcoming Encounters Date Type Department Care Team ([facility] st Contact Info) Description 10/29/2024 9:30 AM EDT Medication Management [address] [address] Katlyn Rodriguez PharmD 230 [place], [place] 11/15/2024 11:30 AM EDT Clinical Support [address] [address] Opal Steiner, RN documented as of this encounter Visit Diagnoses Diagnosis Chronic pain syndrome documented in this encounter Care Teams Supervisor Assembly And Packing Relationship Specialty Start Date End Date Name, MD Kiel [address] [place] [address] PCP - General Family Medicine 07/15/15 Katlyn Rodriguez, Bin [address] [place] [address] Pharmacist Internal Medicine 10/08/22 Nehal Ann, MARINA [address] [place] [address] Registered Nurse Family Medicine 08/20/24 Ania Spencer 08/20/24 Marta Ovalle Sustainable Products Marketing ManagerLease Administration Analyst 05/25/23 documented as of this encounter
--- OUTSIDE RECORDS SUMMARY | 2024-10-26 14:52 | XMS_ITS | Encounter Summary ---
Author Organization [employer] Address [address] [place] [address] 7t [place] [address] Care Team Providers Care Filler Operator Name Role Phone Name, Kiel BAILEY Primary Care Provider [phone] Katlyn Rodriguez PharmD Unavailable [phone] Nehal Ann RN Unavailable [phone] Ania Spencer Unavailable Encounter Details Date Type Department Care Team ([facility] Contact Info) Description 10/29/2022 Abstract [facility] MEDICINE [address] [place] [address] Name, MD Kiel [address] [place] [address] [phone] Social History Tobacco Use Types Packs/Day Years [...] Team ([facility] Contact Info) Description 10/29/2024 9:30 AM EDT Medication Management [address] [address] PuiaReidKatlyn, PharmD 230 [place] [address] 11/15/2024 11:30 AM EDT Clinical Support [facility] MEDICINE 230 [place] [address] Opal Steiner RN documented as of this [...] encounter Results * Diabetes Eye Exam (05/26/2022) [facility] Signature Eye Exam Normal Normal Kiel Shaffer MD HEALTH MAINTENANCE Final Result documented in this encounter Visit Diagnoses Not on filedocumented in this encounter Additional Health Concerns Assessment Noted Time PHQ-9 Depression Total Score: 7 07/15/19 23 2:39 PM EDT documented as of this encounter Care Teams Filler Operator Relationship Specialty Start Date End Date Name, MD Kiel [address] [place] [address] PCP - General Family Medicine 07/15/15 AdeniaReidKatlyn, PharmD [address] [place] [address] Pharmacist Internal Medicine 10/08/22 Nehal Ann RN [address] [place] [address] Registered Nurse Family Medicine 08/20/24 Ania Spencer 08/20/24 Marta Ovalle Putter InHydraulic Press Servicer 05/25/23 documented as of this encounter
--- OUTSIDE RECORDS SUMMARY | 2024-10-26 14:52 | XMS_ITS | Encounter Summary ---
Author Organization [employer] Address [address] [place] [address] 7t [place] [address] Care Team Providers Care Client Services Director Name Role Phone Name, Kiel BAILEY Primary Care Provider [phone] Katlyn Rodriguez PharmD Unavailable [phone] Nehal Ann RN Unavailable [phone] Ania Spencer Unavailable Encounter Details Date Type Department Care Team ([facility] Contact Info) Description 07/01/2022 Abstract [facility] MEDICINE 230 [place] [address] Name, MD Kiel 230 [place], [place] [phone] Social History Tobacco Use Types Packs/Day Years [...] Upcoming Encounters Date Type Department Care Team ([facility] Contact Info) Description 10/29/2024 9:30 AM EDT Medication Management [address] [address] Katlyn Rodriguez PharmD 230 [place] [address] 11/15/2024 11:30 AM EDT Clinical Support [address] [phone] Opal Steiner, MARINA documented as of this encounter Visit Diagnoses Not on filedocumented in this encounter Care Teams Client Services Director Relationship Specialty Start Date End Date Name, MD Kiel [address] [place] [address] [phone] PCP - General Family Medicine 07/15/15 Katlyn Rodriguez, Bin [address] [place] [address] Pharmacist Internal Medicine 10/08/22 Nehal Ann, MARINA [address] [place] [address] Registered Nurse Family Medicine 08/20/24 Ania Spencer 08/20/24 Marta Ovalle Registered Nurse Bone Marrow TransplantOre Dryer 05/25/23 documented as of this encounter
--- OUTSIDE RECORDS SUMMARY | 2024-10-26 14:52 | XMS_ITS | Encounter Summary ---
Author Organization [employer] Address [address] [place] [address] 7t [place] [address] Care Team Providers Care Geomagnetician Name Role Phone Name, Kiel BAILEY Primary Care Provider [phone] Katlyn Rodriguez PharmD Unavailable [phone] Nehal Ann RN Unavailable [phone] Ania Spencer Unavailable Reason for Visit * Reason Comments Med Refill Encounter Details Date Type Department Care Team ([facility] Contact Info) Description 07/02/2022 Refill [facility] MEDICINE 230 [place], [place] [phone] Name, MD Kiel 230 [place], [place] [phone] Chronic pain syndrome Social History Tobacco Use [...] Upcoming Encounters Date Type Department Care Team ([facility] st Contact Info) Description 10/29/2024 9:30 AM EDT Medication Management [address] [address] Katlyn Rodriguez PharmD 230 [place], [place] 11/15/2024 11:30 AM EDT Clinical Support [address] [address] Opal Steiner, RN documented as of this encounter Visit Diagnoses Diagnosis Chronic pain syndrome documented in this encounter Care Teams Geomagnetician Relationship Specialty Start Date End Date Name, MD Kiel [address] [place] [address] PCP - General Family Medicine 07/15/15 Katlyn Rodriguez, Bin [address] [place] [address] Pharmacist Internal Medicine 10/08/22 Nehal Ann, MARINA [address] [place] [address] Registered Nurse Family Medicine 08/20/24 Ania Spencer 08/20/24 Marta Ovalle Apprentice/LinemanDirector Mobile Media Solutions 05/25/23 documented as of this encounter
--- OUTSIDE RECORDS SUMMARY | 2024-10-26 14:52 | XMS_ITS | Encounter Summary ---
Author Organization [employer] Address [address] [facility] 7t [place] [address] Care Team Providers Care Tuft Machine Operator Name Role Phone Name, Kiel BAILEY Primary Care Provider Katlyn Rodriguez PharmD Unavailable [phone] Nehal Ann RN Unavailable [phone] Ania Spencer Unavailable Reason for Visit * Reason Comments Med Refill Encounter Details Date Type Department Care Team (Late st Contact Info) Description 04/15/2023 Refill [facility] MEDICINE 230 [place] [address] Yaneth Restrepo FNP 230 [place] [address] Diabetes mellitus type 2 in obese (CMS/HCC) [...] Description 10/29/2024 9:30 AM EDT Medication Management [address] [address] Puia, Katlyn, PharmD [address] [place] [address] 11/15/2024 11:30 AM EDT Clinical Support [address] [address] Opal Steiner RN documented as of this [...] documented as of this encounter Care Teams Tuft Machine Operator Relationship Specialty Start Date End Date Name, MD Kiel 230 [place] [address] PCP - General Family Medicine 07/15/15 Katlyn Rodriguez PharmD 230 [place] [address] Pharmacist Internal Medicine 10/08/22 Nehal Ann, MARINA [address] [place] [address] Registered Nurse Family Medicine 08/20/24 Ania Spencer 08/20/24 Marta Ovalle Sales Representative Girls' ApparelBoat Designer 05/25/23 documented as of this encounter
--- OUTSIDE RECORDS SUMMARY | 2024-10-26 14:52 | XMS_ITS | Encounter Summary ---
Author Organization [employer] Address [address] [place] [address] 7t [place] [address] Care Team Providers Care General Adjuster Name Role Phone Name, Kiel BAILEY Primary Care Provider [phone] Katlyn Rodriguez PharmD Unavailable [phone] Nehal Ann RN Unavailable [phone] Ania Spencer Unavailable Encounter Details Date Type Department Care Team ([facility] Contact Info) Description 03/12/2022 Orders Only [facility] [address] [place], [place] [phone] Millie Sawant LPN Social History Tobacco Use [...] ([facility] Contact Info) Description 10/29/2024 9:30 AM EDT Medication Management [facility] MEDICINE 230 [place] [address] Katlyn Rodriguez PharmD 230 [place] [address] 11/15/2024 11:30 AM EDT Clinical Support [facility] MEDICINE [address] [place] [address] Opal Steiner, RN documented as of this encounter Visit Diagnoses Not on filedocumented in this encounter Care Teams General Adjuster Relationship Specialty Start Date End Date Name, MD Kiel [address] [place] [address] PCP - General Family Medicine 07/15/15 Katlyn Rodriguez, PharmD [address] [place] [address] Pharmacist Internal Medicine 10/08/22 Nehal Ann RN [address] [place] [address] Registered Nurse Family Medicine 08/20/24 Ania Spencer 08/20/24 Marta Ovalle Test And Turn Up TechnicianSoftware Manager 05/25/23 documented as of this encounter
--- OUTSIDE RECORDS SUMMARY | 2024-10-26 14:52 | XMS_ITS | Encounter Summary ---
Author Organization [employer] Address [address] [place] [address] 7t [place] [address] Care Team Providers Care Packing Machine Can Feeder Name Role Phone Name, Kiel BAILEY Primary Care Provider [phone] Katlyn Rodriguez PharmD Unavailable Nehal Ann RN Unavailable [phone] Ania Spencer Unavailable Reason for Visit * Reason Comments Med Refill Encounter Details Date Type Department Care Team ([facility] Contact Info) Description 02/10/[address] [facility] [address] [place] [address] Name, MD Kiel 230 [place] [address] Chronic pain syndrome (Primary Dx) Social History [...] 10/29/2024 9:30 AM EDT Medication Management [address] [address] Katlyn Rodriguez PharmSusan [address] [place] [address] 11/15/2024 11:30 AM EDT Clinical Support [address] [address] Opal Steiner, MARINA documented as of this encounter Visit Diagnoses Diagnosis Chronic pain syndrome- Primary documented in this encounter Care Teams Packing Machine Can Feeder Relationship Specialty Start Date End Date Name, MD Kiel [address] [place] [address] PCP - General Family Medicine 07/15/15 Katlyn Rodriguez, Bin [address] [place] [address] Pharmacist Internal Medicine 10/08/22 Nehal Ann, MARINA [address] [place] [address] Registered Nurse Family Medicine 08/20/24 Ania Spencer 08/20/24 Marta Ovalle Hydroelectric Systems TechnicianClinical Project Coordinator 05/25/23 documented as of this encounter
--- OUTSIDE RECORDS SUMMARY | 2024-10-26 14:52 | XMS_ITS | Encounter Summary ---
Author Organization [employer] Address [address] [place] [address] 7t [place] [address] Care Team Providers Care Transit Specialist Name Role Phone Name, Kiel BAILEY Primary Care Provider [phone] Katlyn Rodriguez PharmD Unavailable [phone] Nehal Ann RN Unavailable [phone] Ania Spencer Unavailable Reason for Visit * Reason Comments Med Refill Encounter Details Date Type Department Care Team (Late st Contact Info) Description 07/16/2022 Refill [facility] 230 [place], [place] [phone] Name, MD Kiel 230 [place], [place] [phone] Chronic pain syndrome Social History Tobacco Use [...] Description 10/29/2024 9:30 AM EDT Medication Management [address] [address] Katlyn Rodriguez PharmD 230 [place], [place] 11/15/2024 11:30 AM EDT Clinical Support [address] [address] Opal Steiner, MARINA documented as of this encounter Visit Diagnoses Diagnosis Chronic pain syndrome documented in this encounter Additional Health Concerns Assessment Noted Time PHQ-9 Depression Total Score: 7 07/15/19 2:39 PM EDT documented as of this encounter Care Teams Transit Specialist Relationship Specialty Start Date End Date Name, MD Kiel [address] [place] [address] PCP - General Family Medicine 07/15/15 Katlyn Rodriguez PharmD [address] [place] [address] Pharmacist Internal Medicine 10/08/22 Nehal Ann, MARINA [address] [place] [address] Registered Nurse Family Medicine 08/20/24 Ania Spencer 08/20/24 Marta Ovalle Milling Planer OperatorAir Value Tester 05/25/23 documented as of this encounter
--- OUTSIDE RECORDS SUMMARY | 2024-10-26 14:52 | XMS_ITS | Encounter Summary ---
Author Organization [employer] Address [address] [place] [address] 7t [place] [address] Care Team Providers Care Transport Engineer Name Role Phone Name, Kiel BAILEY Primary Care Provider [phone] Katlyn Rodriguez PharmD Unavailable [phone] Nehal Ann RN Unavailable [phone] Ania Spencer Unavailable Reason for Visit * Reason Onset Date Comments Referral 08/30/2024 Encounter Details Date Type Department Care Team (Late st Contact Info) Description 08/30/2024 Telephone [facility] MEDICINE 230 [place], [place] [phone] Name, MD Kiel 230 [place], [place] [phone] Referral Social History Tobacco Use Types Packs/Day [...] Answer Date of Assessment Author Patient Health Questionnaire -2 Score 2 09/04/2024 11:46 AM Nehal Cartagena RN * Little interest or pleasure in doing things Answer Date of Assessment Author Several days 09/04/2024 11:46 AM Taj Cartagena RN * Feeling down, depressed, or hopeless Answer Date of Assessment Author Several days 09/04/2024 11:46 AM Taj Cartagena RN * Trouble falling or staying asleep, or sleeping too much Answer Date of Assessment Author Several days 09/04/2024 11:46 AM Taj Cartagena RN * Feeling tired or having little energy Answer Date of Assessment Author Several days 09/04/2024 11:46 AM Taj Cartagena RN * Poor appetite or overeating Answer Date of Assessment Author Several days 09/04/2024 11:46 AM Taj Cartagena RN * Feeling bad about yourself - or that you are a failure or have let yourself or your family down Answer Date of Assessment Author Several days 09/04/2024 11:46 AM Taj Cartagena RN * Trouble concentrating on things, such as reading the newspaper or watching television Answer Date of Assessment Author Several days 09/04/2024 11:46 AM Taj Cartagena RN * Moving or speaking so slowly that other people could have noticed? Or the opposite - being so fidgety or restless that you have been moving around a lot more than usual. Answer Date of Assessment Author Not at all 09/04/2024 11:46 AM Taj Cartagena RN * Thoughts that you would be better off or hurting yourself in some way Answer Date of Assessment Author Not at all 09/04/2024 11:46 AM Taj Cartagena RN * Patient Health Questionnaire-9 Score Answer Date of Assessment Author 7 09/04/2024 11:46 AM Taj Cartagena RN * How difficult have these problems made it for you to do your work, take care of things at home, or get along with other people? Answer Date of Assessment Author Somewhat difficult 09/04/2024 11:46 AM Nehal Cartagena RN * Over the last 2 weeks, how often have you been bothered by any of the following problems? Question Answer Date of Assessment Author Feeling nervous, anxious, or on edge 1 09/04/2024 11:50 AM Nehal Cartagena RN Not being able to stop or co ntrol worrying 1 09/04/2024 11:50 AM Nehal Cartagena RN Worrying too much about diff erent things 1 09/04/2024 11:50 AM Nehal Cartagena RN Trouble relaxing 1 09/04/2024 11:50 AM Nehal Cartagena RN Being so restless that it is hard to sit still 0 09/04/2024 11:50 AM Nehal Cartagena RN Becoming easily annoyed or irritable 0 09/04/2024 11:50 AM EDT Nehal Ann RN Feeling afraid as if somethi ng awful might happen 1 09/04/2024 11:50 AM EDT Nehal Ann RN ANTWAN-7 Total Score 5 09/04/2024 11:50 AM EDT Nehal Ann RN documented as of this encounter Miscellaneous Notes [...] going to be treaty Contact pt at [phone] documented in this encounter Plan of Treatment Upcoming Encounters Date Type Department Care Team (Late st Contact Info) Description 10/29/2024 9:30 AM EDT Medication Management [facility] MEDICINE [address] [place] [address] Puia, Katlyn, PharmD [address] [place] [address] 11/15/2024 11:30 AM EDT Clinical Support [address] [address] Opal Steiner RN documented as of this [...] documented as of this encounter Care Teams Transport Engineer Relationship Specialty Start Date End Date Name, MD Kiel 230 [place] [address] PCP - General Family Medicine 07/15/15 Katlyn Rodriguez PharmD 230 [place] [address] Pharmacist Internal Medicine 10/08/22 Nehal Ann RN 505 [place] [address] Registered Nurse Family Medicine 08/20/24 Ania Spencer 08/20/24 Marta Ovalle Environmental TechnicianEthnographer 05/25/23 documented as of this encounter
--- OUTSIDE RECORDS SUMMARY | 2024-10-26 14:52 | XMS_ITS | Encounter Summary ---
Author Organization [employer] Address [address] [facility] 7t [place] [address] Care Team Providers Care Academic Support Director Name Role Phone Name, Kiel BAILEY Primary Care Provider [phone] Katlyn Rodriguez PharmD Unavailable [phone] Nehal Ann RN Unavailable [phone] Ania Spencer Unavailable Reason for Visit * Reason Onset Date Comments Durable Medical Equipment 01/24/2023 Encounter Details Date Type Department Care Team (Late st Contact Info) Description 01/24/2023 Telephone [facility] MEDICINE 230 [place], [place] [phone] Name, MD Kiel 230 [place], [place] [phone] Durable Medical Equipment Social History Tobacco Use [...] to errol. Any questions, contact pt at [phone] documented in this encounter Plan of Treatment Upcoming Encounters Date Type Department Care Team (Late st Contact Info) Description 10/29/2024 9:30 AM EDT Medication Management [address] [address] Puia, Katlyn, PharmD [address] [place] [address] 11/15/2024 11:30 AM EDT Clinical Support [facility] [address] [place] [address] Opal Steiner RN documented as of this [...] documented as of this encounter Care Teams Academic Support Director Relationship Specialty Start Date End Date Name, MD Kiel [address] [place] [address] PCP - General Family Medicine 07/15/15 PuKatlyn albert, PharmD 230 [place] [address] Pharmacist Internal Medicine 10/08/22 Nehal Ann RN [address] [place] [address] Registered Nurse Family Medicine 08/20/24 Ania Spencer 08/20/24 Marta Ovalle Technical Publications WriterPhysical Medicine Physician 05/25/23 documented as of this encounter
--- OUTSIDE RECORDS SUMMARY | 2024-10-26 14:52 | XMS_ITS | Encounter Summary ---
Author Organization [employer] Address [address] [place] [address] 7t [place] [address] Care Team Providers Care Slate Splitter Name Role Phone Kiel Shaffer MD Primary Care Provider Katlyn Rodriguez PharmD Unavailable Nehal Ann RN Unavailable [phone] Ania Spencer Unavailable Reason for Referral * Consultation (Routine) - Closed Specialty Diagnoses / Procedures Referred By Carroll hoover Referred To Contact Physical Therapy Diagnoses Hemiparesis of left dominant side as late effect of cerebral infarction ([facility]) Kiel Shaffer MD [address] [place] [address] Phone: tel: fax: [facility] Physical Therapy [address] [place] [address] Phone: tel: fax: Referral ID Status Reason Start Date Expiration Date V isits Requested Visits Authorized [id number] Closed Specialty Services Required 10/06/2024 10/06/2025 20 20 Reason for Visit * Reason Onset Date Comments Referral 10/05/2024 Encounter Details Date Type Department Care Team ([facility] st Contact Info) Description 10/05/2024 Telephone [facility] MEDICINE [address] [place] [address] Kiel Shaffer MD [address] [place], [place] [phone] Referral Social History Tobacco Use Types Packs/Day [...] 10/05/2024 1:40 PM EDT TC placed to [facility] with [facility] physical therapy regarding referral request. [facility] states they havean order for physical therapy for weakness of both lower extremities. [facility] is requesting the referral be sent to them with MD signature. [facility] states when requesting additional visits through [facility], they are very particular and request MD signature. [facility] provided fax number [phone]. TC placed to [facility] Blue Team occupational therapy specialist [place] for clarification on what is to be done. [place] states they have not heard of this. [facility] states pt may need new referral as they after 30 days. TC placed to [facility] with [facility] physical therapy for clarification on request. [facility] states they require the referral to be electronically signed or physically signed by an MD. Message forwarded to PCP to review and advise. * Telephone Encounter - Rosario Phillips - 10/05/2024 11:04 AM EDT TC from [facility] with [facility] requesting a new referral for physical therapy with an MD sing Contact pt at [phone] documented in this encounter Plan of Treatment Upcoming Encounters Date Type Department Care Team (Late st Contact Info) Description 10/29/2024 9:30 AM EDT Medication Management [address] [address] AdeniaKatlyn, PharmD [address] [place] [address] 11/15/2024 11:30 AM EDT Clinical Support [address] [address] Opal Steiner RN Scheduled Referrals Name Type [...] documented as of this encounter Care Teams Slate Splitter Relationship Specialty Start Date End Date Name, MD Kiel [address] [place] [address] PCP - General Family Medicine 07/15/15 Katlyn Rodriguez, PharmD [address] [place] [address] Pharmacist Internal Medicine 10/08/22 Nehal Ann RN [address] [place] [address] Registered Nurse Family Medicine 08/20/24 Ania Spencer 08/20/24 Marta Ovalle Registered Medical AssistantMolder Fitting 05/25/23 documented as of this encounter
--- OUTSIDE RECORDS SUMMARY | 2024-10-26 14:52 | XMS_ITS | Encounter Summary ---
Author Organization [email or web address] Address [address] [facility] 7t [place] [address] Care Team Providers Care Traveling Engineer Name Role Phone Name, Kiel BAILEY Primary Care Provider [phone] Katlyn Rodriguez PharmD Unavailable Nehal Ann RN Unavailable [phone] Ania Spencer Unavailable Reason for Visit * Reason Onset Date Comments Medication Problem 08/30/2023 Encounter Details Date Type Department Care Team (Late st Contact Info) Description 08/30/2023 Telephone [facility] MEDICINE [address] [place], [place] [phone] Name, MD Kiel 230 [place], [place] [phone] Medication Problem Social History Tobacco Use Types [...] Description 10/29/2024 9:30 AM EDT Medication Management [address] [address] Katlyn Rodriguez, PharmD [address] [place] [address] 11/15/2024 11:30 AM EDT Clinical Support [facility] MEDICINE [address] [place] [address] Opal Steiner RN documented as of this [...] documented as of this encounter Care Teams Traveling Engineer Relationship Specialty Start Date End Date Name, MD Kiel [address] [place] [address] PCP - General Family Medicine 07/15/15 Katlyn Rodriguez, PharmD [address] [place] [address] Pharmacist Internal Medicine 10/08/22 Nehal Ann RN [address] [place] [address] Registered Nurse Family Medicine 08/20/24 Ania Spencer 08/20/24 Marta Ovalle Film Casting OperatorOil Refinery Operator 05/25/23 documented as of this encounter
--- OUTSIDE RECORDS SUMMARY | 2024-10-26 14:53 | XMS_ITS | Encounter Summary ---
Author Organization [employer] Address [address] [place] [address] 7[place] [address] Care Team Providers Care Client Care Specialist Name Role Phone Name, Kiel BAILEY Primary Care Provider [phone] Katlyn Rodriguez PharmD Unavailable [phone] Nehal Ann RN Unavailable [phone] Ania Spencer Unavailable Reason for Referral * Consultation (Routine) - Closed Specialty Diagnoses / Procedures Referred By Carroll hoover Referred To Contact Occupational Therapy Diagnoses Left arm weakness Lizzie Alfaro NP [address] [place] [address] Phone: tel: fax: [facility] Physical Therapy [address] [place] [address] Phone: tel: fax: Referral ID Status Reason Start Date Expiration Date V isits Requested Visits Authorized [id number] Closed Specialty Services Required 09/06/2024 09/06/2025 20 20 Encounter Details Date Type Department Care Team (Late st Contact Info) Description 09/06/2024 Orders Only [facility] MEDICINE [address] [place] [address] Lizzie Alfaro NP [address] [place] [address] Left arm weakness (Primary Dx) Social History [...] Description 10/29/2024 9:30 AM EDT Medication Management [facility] MEDICINE [address] [place] [address] Katlyn Rodriguez, PharmD 230 [place] [address] 11/15/2024 11:30 AM EDT Clinical Support [facility] MEDICINE [address] [place] [address] Opal Steiner, MARINA Scheduled Referrals Name Type [...] as of this encounter Care Teams Client Care Specialist Relationship Specialty Start Date End Date Name, MD Kiel 230 [place] [address] PCP - General Family Medicine 07/15/15 Puia, Katlyn, PharmD [address] [place] [address] Pharmacist Internal Medicine 10/08/22 Nehal Ann RN [address] [place] [address] Registered Nurse Family Medicine 08/20/24 Ania Spencer 08/20/24 Marta Ovalle Lead OperatorSlate Roofer 05/25/23 documented as of this encounter
--- OUTSIDE RECORDS SUMMARY | 2024-10-26 14:53 | XMS_ITS | Encounter Summary ---
Author Organization [employer] Address [address] [place] [address] 7t [place] [address] Care Team Providers Care Music Worker Name Role Phone Name, Kiel BAILEY Primary Care Provider [phone] Katlyn Rodriguez PharmD Unavailable [phone] Nehal Ann RN Unavailable [phone] Ania Spencer Unavailable Reason for Referral * Consultation (Routine) - Closed Specialty Diagnoses / Procedures Referred By Carroll hoover Referred To Contact Occupational Therapy Diagnoses Weakness of both lower extremities Hemiparesis of left dominant side as late effect of cerebral infarction (CMS/HCC) Lizzie Alfaro NP [address] [place] [address] Phone: tel: fax: [facility] Physical Therapy [address] [place] [address] Phone: tel: fax: Referral ID Status Reason Start Date Expiration Date V isits Requested Visits Authorized [id number] Closed Specialty Services Required 09/06/2024 09/06/2025 20 20 * Consultation (Routine) - Closed Specialty Diagnoses / Procedures Referred By Carroll hoover Referred To Contact Physical Therapy Diagnoses Weakness of both lower extremities Lizzie Alfaro NP [address] [place] [address] Phone: tel: fax: [facility] Physical Therapy [address] [place] [address] Phone: tel: fax: Referral ID Status Reason Start Date Expiration Date V isits Requested Visits Authorized [id number] Closed Specialty Services Required 09/06/2024 09/06/2025 20 20 Encounter Details Date Type Department Care Team (Late st Contact Info) Description 09/06/2024 Orders Only [facility] MEDICINE [address] [place] [address] Lizzie Alfaro NP [address] [place] [address] Weakness of both lower extremities (Primary Dx); [...] Description 10/29/2024 9:30 AM EDT Medication Management [address] [address] PuiaReidKatlyn, PharmD [address] [place] [address] 11/15/2024 11:30 AM EDT Clinical Support [address] [address] Opal Steiner RN Scheduled Referrals Name Type [...] documented as of this encounter Care Teams Music Worker Relationship Specialty Start Date End Date Name, MD Kiel [address] [place] [address] PCP - General Family Medicine 07/15/15 Katlyn Rodriguez, Bin [address] [place] [address] Pharmacist Internal Medicine 10/08/22 Nehal Ann RN [address] [place] [address] Registered Nurse Family Medicine 08/20/24 Ania Spencer 08/20/24 Marta Ovalle On Air PersonalityEtiology Teacher 05/25/23 documented as of this encounter
--- OUTSIDE RECORDS SUMMARY | 2024-10-26 14:53 | XMS_ITS | Encounter Summary ---
Author Organization [employer] Address [address] [place] [address] 7t [place] [address] Care Team Providers Care Marine Pilot Name Role Phone Name, Kiel BAILEY Primary Care Provider [phone] Katlyn Rodriguez PharmD Unavailable [phone] Nehal Ann RN Unavailable [phone] Ania Spencer Unavailable Reason for Visit * Reason Onset Date Comments FYI 08/03/2024 Encounter Details Date Type Department Care Team (Late st Contact Info) Description 08/03/2024 Telephone [facility] MEDICINE [address] [place], [place] [phone] Name, MD Kiel [address] [place], [place] [phone] Social History Tobacco Use Types Packs/Day Years [...] pull up prescription. Any questions contact Em [phone] documented in this encounter Plan of Treatment Upcoming Encounters Date Type Department Care Team (Late st Contact Info) Description 10/29/2024 9:30 AM EDT Medication Management [address] [address] Puia, Katlyn, PharmD [address] [place] [address] 11/15/2024 11:30 AM EDT Clinical Support [address] [address] Opal Steiner RN documented as of this [...] documented as of this encounter Care Teams Marine Pilot Relationship Specialty Start Date End Date Name, MD Kiel [address] [place] [address] PCP - General Family Medicine 07/15/15 Puia, Katlyn, PharmD [address] [place] [address] Pharmacist Internal Medicine 10/08/22 Nehal Ann RN [address] [place] [address] Registered Nurse Family Medicine 08/20/24 Ania Spencer 08/20/24 Marta Ovalle Oven StripperManager Paid 05/25/23 documented as of this encounter
--- OUTSIDE RECORDS SUMMARY | 2024-10-26 14:53 | XMS_ITS | Encounter Summary ---
Author Organization [employer] Address [address] [place] [address] 7t [place] [address] Care Team Providers Care Reading Professor Name Role Phone Name, Kiel BAILEY Primary Care Provider [phone] Katlyn Rodriguez PharmD Unavailable [phone] Nehal Ann RN Unavailable [phone] Ania Spencer Unavailable Reason for Visit * Reason Onset Date Comments Appointment Request 02/29/2024 Encounter Details Date Type Department Care Team ([facility] st Contact Info) Description 02/29/2024 Telephone [facility] MEDICINE [address] [place], [place] [phone] Name, MD Kiel [address] [place], [place] [phone] Appointment Request Social History Tobacco Use Types [...] different date and time. Pt does speak georgian so you will need an radiologic technology instructor. documented in this encounter Plan of Treatment Upcoming Encounters Date Type Department Care Team (Late st Contact Info) Description 10/29/2024 9:30 AM EDT Medication Management [facility] MEDICINE [address] [place] [address] Katlyn Rodriguez, PharmD [address] [place] [address] 11/15/2024 11:30 AM EDT Clinical Support [facility] MEDICINE [address] [place] [address] Opal Steiner RN documented as of this [...] documented as of this encounter Care Teams Reading Professor Relationship Specialty Start Date End Date Name, MD Kiel [address] [place] [address] PCP - General Family Medicine 07/15/15 Puia, Katlyn, PharmD [address] [place] [address] Pharmacist Internal Medicine 10/08/22 Nehal Ann RN [address] [place] [address] Registered Nurse Family Medicine 08/20/24 Ania Spencer 08/20/24 Marta Ovalle Education CounselorSection Hand Helper 05/25/23 documented as of this encounter
--- OUTSIDE RECORDS SUMMARY | 2024-10-26 14:53 | XMS_ITS ---
Author Organization [employer] Address [address] [place] [address] 7t [place] [address] Care Team Providers Care Drag Seiner Name Role Phone Name, Kiel BAILEY Primary Care Provider Katlyn Rodriguez PharmD Unavailable Nehal Ann RN Unavailable [phone] Ania Spencer Unavailable [facility] Complex Status:Outreach In Progress (Enrolling) Start date:08/20/2024 Enrollment reason:ADT Feed Overview ED- Pt went to [facility] ED on 08/17/24. Case Team Name Relationship Phone Ania Spencer(Responsible Staff) [phone] Continued Care and Services Coordination
--- OUTSIDE RECORDS SUMMARY | 2024-10-26 14:53 | XMS_ITS | Encounter Summary ---
Author Organization [employer] Address [address] [facility] 7t [place] [address] Care Team Providers Care Delivery Table Feeder Name Role Phone Name, Kiel BAILEY Primary Care Provider [phone] Katlyn Rodriguez PharmD Unavailable Nehal Ann RN Unavailable [phone] Ania Spencer Unavailable Reason for Visit * Reason Onset Date Comments Hospital Follow-up 08/02/2024 Encounter Details Date Type Department Care Team (Late st Contact Info) Description 08/02/2024 Telephone [facility] MEDICINE 230 [place], [place] [phone] Name, MD Kiel [address] [place], [place] [phone] Hospital Follow-up Social History Tobacco Use Types [...] or on edge 1 09/04/2024 11:50 AM Nheal Cartagena RN Not being able to stop [...] from pt requesting a HDF appt. Hospital: [facility] Date of admission: 07/30/24 Discharge date: 08/02/24 Diagnosed: chronic SOPD *Send message to [place] Clinical Care Coordinators documented in this encounter Plan of Treatment Upcoming Encounters Date Type Department Care Team (Late st Contact Info) Description 10/29/2024 9:30 AM EDT Medication Management [address] [address] Puia, Katlyn, PharmD [address] [place] [address] 11/15/2024 11:30 AM EDT Clinical Support [address] [address] Opal Steiner RN documented as of this [...] documented as of this encounter Care Teams Delivery Table Feeder Relationship Specialty Start Date End Date Name, MD Kiel [address] [place] [address] PCP - General Family Medicine 07/15/15 Katlyn Rodriguez PharmD [address] [place] [address] Pharmacist Internal Medicine 10/08/22 Nehal Ann RN [address] [place] [address] Registered Nurse Family Medicine 08/20/24 Ania Spencer 08/20/24 Marta Ovalle Nuclear Medicine TechnologistWeights And Measures Sealer 05/25/23 documented as of this encounter
--- OUTSIDE RECORDS SUMMARY | 2024-10-26 14:53 | XMS_ITS | Encounter Summary ---
Author Organization [employer] Address [address] [place] [address] 7t [place] [address] Care Team Providers Care Database Technician Name Role Phone Name, Kiel BAILEY Primary Care Provider [phone] Katlyn Rodriguez PharmD Unavailable Nehal Ann RN Unavailable [phone] Ania Spencer Unavailable Reason for Visit * Reason Onset Date Comments FYI 08/03/2024 Encounter Details Date Type Department Care Team (Late st Contact Info) Description 08/03/2024 Telephone [facility] MEDICINE [address] [place], [place] [phone] Name, MD Kiel [address] [place], [place] [phone] Social History Tobacco Use Types Packs/Day Years [...] will be admitting pt for OT and detention. If any questions you can contact pt at [phone], documented in this encounter Plan of Treatment Upcoming Encounters Date Type Department Care Team (Late st Contact Info) Description 10/29/2024 9:30 AM EDT Medication Management [facility] MEDICINE [address] [place] [address] Katlyn Rodriguez, PharmD [address] [place], [place] [phone] 11/15/2024 11:30 AM EDT Clinical Support [facility] MEDICINE [address] [place] [address] Opal Steiner, MARINA documented as of this [...] documented as of this encounter Care Teams Database Technician Relationship Specialty Start Date End Date Name, MD Kiel [address] [place] [address] PCP - General Family Medicine 07/15/15 Puia, Katlyn, PharmD [address] [place] [address] Pharmacist Internal Medicine 10/08/22 Nehal Ann RN [address] [place] [address] Registered Nurse Family Medicine 08/20/24 Ania Spencer 08/20/24 Marta Ovalle Sports TherapistWhite Washer Piler 05/25/23 documented as of this encounter
--- OUTSIDE RECORDS SUMMARY | 2024-10-26 14:53 | XMS_ITS ---
Author Organization [employer] Address [address] [place] [address] 7t [place] [address] Care Team Providers Care Predatory Hunter Name Role Phone Name, Kiel BAILEY Primary Care Provider Katlyn Rodriguez PharmD Unavailable [phone] Nehal Ann RN Unavailable [phone] Ania Spencer Unavailable CM Complex Status:Enrolled (Active) Start date:08/20/2024 Enrollment date:09/04/2024 Enrollment reason:ADT Feed Overview ED- Pt went to [facility] ED on 08/17/24. Case Team Name Relationship Phone Nehal Ann RN(Responsible Staff) Registered Nurse [phone] Continued Care and Services Coordination
== END 2024-10-26 14:35 | disposition home or self-care (01) ==
LOC: HO.HOSX 14:34
DX: S52.514D Nondisplaced fracture of right radial styloid process, subsequent encounter for closed fracture with routine healing (principal); X58.XXXD Exposure to other specified factors, subsequent encounter
CPT/HCPCS: 73110; 99212

== ENCOUNTER 2024-10-26 14:34 | Outpatient (AMB) | payer MEDICAID, SELFPAY ==
--- OUTSIDE RECORDS SUMMARY | 2023-11-24 09:53 | XMS_ITS | Encounter Summary ---
Author Organization [facility] Address [address] [place] [address] Care Team Providers Care Car Lot Attendant Name Role Phone Name, Kiel BAILEY Primary Care Provider [phone] Encounter Details Date Type Department Care Team (Late st Contact Info) Description 11/24/2023 9:53 AM EDT Hospital Encounter TH HISTORIC ENCOUNTERS EASTERN CONVERSION ONLY Geoffrey-Art Vitale MD [address] [place] [address] Social History Tobacco Use Types [...] 2:17 PM Encounter Date: 11/24/2023 Status: Signed Alumnae Secretary: Art Davis MD (Physician) CHIEF COMPLAINT: Chief Complaint Patient presents with ? Follow-up Diffuse large B-cell lymphoma Stage III Completed 6 cycles of R-CHOP in July 23, 2018 IDENTIFIER:Sarita Puga is a 58 y.o. female. HPI: The patient returns for follow up of Large B-cell lymphoma. Here with her daughter , who is east timorese to south sudanese school speech language pathologist Patient reports that [...] accompanied by her daughter and girlfriend. As Citizen Of [place] to Welsh school speech language pathologist assisted with the [...] AM EDT Office Visit Orthopedic Surgery - [place] [address] [address] Wesley Garcia DPM [address] [phone] documented as of this encounter Procedures Procedure [...] documented as of this encounter Care Teams Car Lot Attendant Relationship Specialty Start Date End Date Name, MD Kiel 4 [place], [place] PCP - General Internal Medicine 08/28/15 documented as of this encounter
--- OUTSIDE RECORDS SUMMARY | 2023-11-24 10:30 | XMS_ITS | Encounter Summary ---
Author Organization [facility] Address [address] [place] [address] Care Team Providers Care Insurance Loss Adjuster Name Role Phone Name, Kiel BAILEY Primary Care Provider [phone] Encounter Details Date Type Department Care Team (Late Contact Info) Description 11/24/2023 10:30 AM EDT Hospital Encounter TH HISTORIC ENCOUNTERS EASTERN CONVERSION ONLY Geoffrey-Art Vitale MD [address] [place] [phone] Social History Tobacco Use Types Packs/Day Years [...] on file documented as of this encounter Plan of Treatment Upcoming Encounters Date Type Department Care Team (Late Contact Info) Description 11/27/2024 9:45 AM EDT Office Visit Orthopedic Surgery [facility] [address] [facility] [address] [place] [phone] Wesley Garcia, DPM 175 [facility] [address] [place] [phone] documented as of this encounter Visit Diagnoses Not on filedocumented in this encounter Additional Health Concerns Infection Onset Date Last Indicated Resolved Time Respiratory Rule-Out 02/05/2024 02/05/2024 024 8:09 AM EST COVID-19 Rule-Out 02/05/2024 02/05/2024 02/05/2024 8:09 AM EST documented as of this encounter Care Teams Insurance Loss Adjuster Relationship Specialty Start Date End Date Name, MD Kiel 4 [place], [place] PCP - General Internal Medicine 08/28/15 documented as of this encounter
--- NOTE | 2024-10-26 14:38 | MHC.OFFVIS ---
Vital Signs 10/26/24 14:57 Height 5 ft 3 in Weight 234 lb BMI 41.4 Handedness Right Intake Visit Reasons: Cast removal per patient request Intake Note: Sarita is a 59 year old right hand dominant woman who presents today for her right radial styloid fracture and tenderness of anatomical snuffbox DOI: 10/06/2024. Patient presents today in office to remove her cast, she expresses difficulty bathing herself with this. She was placed in a thumb spica cast on 10/17/24. Heading And Priming Operator Required: Yes Heading And Priming Operator Language: Process Improvement Consultant Name: Bhupinderbrianne RMA/LM Allergies penicillin G (Penicillin G) Allergy (Mild, Verified 10/26/24 14:57) SWELLING barium sulfate (ORAL CONTRAST) Allergy (Unknown, Verified 10/26/24 14:57) HIVES cephalexin Allergy (Unknown, Verified 10/26/24 14:57) Unknown HPI HPI Cast removal per patient request: Details: Sarita is a 59 year old right hand dominant woman who presents today for her right radial styloid fracture and tenderness of anatomical snuffbox DOI: 10/06/2024. Patient presents today in office to remove her cast, she expresses difficulty bathing herself with this. She was placed in a thumb spica cast on 10/17/24. Patient expresses initially that she would like to have her cast off, despite medical advice, but retracts this statement and agrees to be put back into another cast. [facility] Medical History COPD (chronic obstructive pulmonary disease) Diabetes mellitus Brain lesion Reactive airway disease Coronary artery disease Insulin dependent type 2 diabetes mellitus Exposure to rabies Lymphoma Restrictive lung disease secondary to obesity Nocturnal hypoxemia DRE (obstructive sleep apnea) Cough Nicotine dependence, cigarettes, uncomplicated Allergic rhinitis Morbid obesity Hyperlipidemia GERD (gastroesophageal reflux disease) Tubular adenoma Chronic idiopathic constipation IBS (irritable bowel syndrome) Back pain Depression Surgical History History of total right knee replacement (TKR) History of appendectomy (~1978) History of (~1986) History of hysterectomy (~1995) History of lithotripsy (~2018) History of carpal tunnel surgery of right wrist (~2020) History of colonoscopy History of esophagogastroduodenoscopy (EGD) Family History Mother Diabetes Heart muscle disorder caused by another medical condition Father Diabetes Epilepsy Sister No problems noted. Sister No problems noted. Sister No problems noted. Sister No problems noted. Sister No problems noted. Brother No problems noted. Brother No problems noted. Brother No problems noted. Brother No problems noted. Brother No problems noted. Brother No problems noted. Daughter No problems noted. Daughter No problems noted. Son No problems noted. Son No problems noted. Son No problems noted. Social History Household Members: Other Household Members Other:: grandson Housing: Apartment Are you a primary skin care consultant to a significant other at home: No Do you presently have visiting nurse or other home services: No Alcohol intake: current Alcohol intake frequency: a few times a week Patient Tobacco Use Status: Current everyday Tobacco user Tobacco use type: Cigarette Cigarette Packs Per Day: 2 Cigarettes Per Day: 40.0 Years Smoked: (onset 13yo, x 42yrs, max 2ppd, now 1/2ppd - 30PYH) e-Cigarette/Vaping Use: Never Used Second Hand Smoke Exposure: No Substance Use Type: Marijuana service: No Current occupational status: disabled Current occupation: rt handed Review of Systems Const All systems reviewed & are unremarkable except as noted in HPI and below Physical Exam Vital Signs: BMI result Body Mass Index 41.4 Extrem Other: Patient is alert, oriented, and in no acute distress. Neuro: Normal sensation of the tips of all digits of the right hand at this time Vascular: Cap refill brisk Pain: Tenderness to palpation about the right distal radius, particularly over the radial styloid Tenderness to palpation of right anatomical snuffbox and scaphoid tubercle No tenderness to palpation of ulnar aspect of right wrist Skin: No lacerations or abrasions. General: No ecchymosis, erythema, or evidence of infection. Psych: Appears grossly normal Affect normal Attitude cooperative Results Reviewed Results Reviewed: X-rays obtained in the office today and independently reviewed by me, Jose Hernandez PA-C, demonstrate nondisplaced fracture of the right radial styloid, as well as a lucency on the right scaphoid concerning for occult fracture. Assessment & Plan Assessment & Plan (1) Nondisplaced fracture of right radial styloid process, initial encounter for closed fracture: Code(s): S52.514A - Nondisplaced fracture of right radial styloid process, initial encounter for closed fracture Category: Medical (2) Tenderness of anatomical snuffbox: Code(s): M79.643 - Pain in unspecified hand Category: Medical Plan 1. Right radial styloid fracture 2. Tenderness of anatomical snuffbox with associated concerning area on x-ray Date of injury 10/06/2024 Patient is educated about this condition Patient is educated about the typical treatment course At this time, patient is once again placed into a thumb spica cast Patient is educated on proper cast care and precautions At this time, patient is educated that I am concerned that there might be an occult fracture of her right scaphoid, and then immobilization of the thumb spica cast is the best way to treat this potential issue Patient does grow tearful due to being placed back into a cast, but states she is amenable to this as this is the best course of treatment for her Follow-up for previously scheduled appointment, we will consider MRI if she is speeder tender in the anatomical snuffbox at that time Patient understands this is and is amenable to this plan Orders: Orders XR wrist RT w scaphoid 10/26/24 M79.641 - Pain in right hand Coding Level of Care Code Global (53982) Diagnoses Nondisplaced fracture of right radial styloid process, initial encounter for closed fracture S52.514A Tenderness of anatomical snuffbox M79.643
--- OUTSIDE RECORDS SUMMARY | 2024-10-26 14:50 | XMS_ITS | Clinical Summary ---
Author Organization 175 [facility] Address [address] [place] [address] Phone Care Team Providers Care Cutter Inspector Name Role Phone Name, Kiel BAILEY Primary Care Provider [phone] Allergies Active Allergy Reactions Criticality Noted Date [...] Problem Noted Date Diagnosed Date COPD exacerbation ([facility] V24, [facility] V28) Abnormal nuclear stress test 11/06/2014 Rib fracture 12/24/2013 Overview (12/12/2023): Non displaced, probable froacture on the right ninth and tenth Abdominal pain 08/15/2013 Lipoma of abdominal wall 11/02/2011 Visual field defect 03/29/2011 Cocaine abuse, episodic use ([facility] V24, [facility] V28) 06/17/2010 Low back pain radiating to left leg 10/08/2009 Overview (12/12/2023): The patient follows with [facility] and is treated with injections to the LS. Asthmatic bronchitis , chronic ([facility] V24, [facility] V28) 07/07/2009 Overview (12/12/2023): Severe and worse in the spring. Last hospitalazion in May and 3 ER visits Hospital 08/02 Known medical problems 06/05/2009 Tobacco use disorder 06/05/2009 Hypertriglyceridemia 06/05/2009 Morbid obesity ([facility] V24, [facility] V28) 2009 Overview (12/12/2023): BMI 48.37 on 11/15/13 Depression 06/05/2009 Encounters Date Type Department Care Team Description 08/27/2024 9:45 AM EDT Office Visit Orthopedic Surgery - [place] [address] [place] [phone] Wesley Garcia, DPM Dermatophytosis of nail (Primary Dx); Pain in toe of right foot; Pain in toe of left foot; Diabetic mononeuropathy simplex ([facility] V24, [facility] V28); Tinea pedis of both feet from [...] TOTAL HYSTERECTOMY WITH BSO; COMMENT: for bleeding, [facility] Medical History Medical History Date Comments Type II or unspecified type diabetes mellitus with unspecified complication, not stated as uncontrolled DX:Type II or unspecified t ype diabetes mellitus with unspecified complication, not stated as uncontrolled Unspecified essential hypertension DX:Unspecified essential hypertension Tobacco abuse DX:Tobacco abuse RAD (reactive airway disease) DX :RAD (reactive airway disease) Morbid obesity ([facility] V24, [facility] V28) DX:Morbid obesity ([facility]) Asthmatic bronchitis , chron ic ([facility] V24, [facility] V28) 07/07/2009 DX:Asthmatic bronchitis , ch ronic ([facility]) Hypertriglyceridemia 06/05/2009 DX:Hypertri glyceridemia Rib fracture 12/24/2013 DX:Rib fracture Family History Medical History Relation Name Comments Blindness Brother 1 Breast cancer Maternal Grandmother Cataracts Maternal Grandmother Blindness Mother Glaucoma Neg Hx Macular degeneration Neg Hx Strabismus Neg Hx Relation Name Status Comments Brother 1 Brother 2 KS Brother 3 Alive 6 brothers are diabetic [...] AM EDT Office Visit Orthopedic Surgery - [place] 250 175 [facility] 250 [place] [address] Wesley Garcia, DPM [address] [address] Health Maintenance Due Date Last Done Comments Breast Cancer Screening 1965 Diabetes: Annual Foot Exam 08/22/1975 Diabetes: Annual Retina Eye Exam 08/22/1975 Hepatitis A Vaccines (1 of 2 - Risk 2-dose series) 1984 Cervical Cancer Screening: Pap Smear 1986 Colorectal Cancer Screening: Colonoscopy 01/29/2022 HIV Screening 01/29/2022 Social Influencers of Health Screening 01/29/2022 Diabetes: Annual Urine Albumin-Creatinine Ratio (uACR) 02/06/2022 05/10/2014 Depression Screening 02/22/2024 COVID-19 Vaccine ( season) 2024 12/15/2021, 03/13/2021, 08/18/2020, Additional history exists Influenza Vaccine (#1) 2024 [...] CHEMISTRY METHOD 02/06/2024 3:36 AM EST [facility] Potassium 4.1 3.5 - 5.5 mmol/L LAB CHEMISTRY METHOD 02/06/2024 3:36 AM EST [facility] Chloride 104 96 - 110 mmol/L LAB CHEMISTRY METHOD 02/06/2024 3:36 AM EST [facility] CO2 23 21 - 32 [...] [facility] Comment:Calculation based on the [...] esult [facility] [address] [place] [address], * (ABNORMAL) Hemoglobin A1c (11/20/2014) Hemoglobin A1C 7.5(A) 4.0 - 6.0 % Blood Venous blood specimen / Unknown Historical Provider LAB BLOOD ORDERABLES Alis l Result * HM Urine Albumin Creatinine Ratio (05/10/2014) Pathologist [facility] Urine Albumin Creatinine Ratio abstracted Historical Provider HEALTH MAINTENANCE Final Result * (ABNORMAL) Lipid panel (05/10/2014) [facility] LDL/HDL Ratio 4 0 - 4 Triglycerides 360(A) 0 - 150 mg/dL Cholesterol 179 0 - 200 mg/dL HDL 42 >=40 mg/dL LDL Cholesterol 65 0 - 100 mg/dL Blood Venous blood specimen / Unknown [facility] Provider LAB BLOOD ORDERABLES Alis l Result * Hepatitis C Screening (10/10/2013) [facility] Hepatitis C Screening abstracted [facility] Provider HEALTH MAINTENANCE Final Result from [...] currently active code status orders. Care Teams Cutter Inspector Relationship Specialty Start Date End Date Name, MD Kiel [address] [place], [place] PCP - General Internal Medicine 08/28/15
--- OUTSIDE RECORDS SUMMARY | 2024-10-26 14:50 | XMS_ITS | Encounter Summary ---
Author Organization [facility] Address [address] [place] [address] Care Team Providers Care Ring Sewer Name Role Phone Name, Kiel BAILEY Primary Care Provider [phone] Encounter Details Date Type Department Care Team Description 09/10/2022 Social Work [facility] Oncology Services [address] [place] [address] Adina Archer, [facility] Social History Tobacco Use Types Packs/Day Years [...] filedocumented in this encounter Care Teams Ring Sewer Relationship Specialty Start Date End Date Name, MD Kiel [address] [place] [address] [address] [place] [address] PCP - General Internal Medicine 04/17/18 documented as of this encounter
--- OUTSIDE RECORDS SUMMARY | 2024-10-26 14:50 | XMS_ITS | Clinical Summary ---
Author Organization [facility] Address [address] [place] [address] Care Team Providers Care Supervisor Reclamation Name Role Phone Name, Kiel BAILEY Primary Care Provider [phone] Allergies Active Allergy Reactions Criticality Noted Date [...] age to complete this topic Care Teams Supervisor Reclamation Relationship Specialty Start Date End Date Name, MD Kiel [address] [facility] [address] [place] [address] PCP - General Internal Medicine 04/17/18
--- OUTSIDE RECORDS SUMMARY | 2024-10-26 14:51 | XMS_ITS | Encounter Summary ---
Author Organization [facility] Address [address] [facility] [address] [place] [address] Phone Care Team Providers Care Ux Researcher Name Role Phone Unavailable Primary Care Provider Unavailabl e Encounter Details Date Type Department Care Team (Late st Contact Info) Description 01/04/2020 Procedure Pass [facility] [address] [place] [address] [place], [place] [phone] Social History Tobacco Use Types Packs/Day Years [...] It is not the complete legal health record.[facility]
--- OUTSIDE RECORDS SUMMARY | 2024-10-26 14:51 | XMS_ITS | Clinical Summary ---
Author Organization [facility] Address [address] [place] [address] [place] [address] Phone Care Team Providers Care Fur Plucker Name Role Phone Unavailable Primary Care Provider [...] Devices Not on file Insurance [employer] [place] [address] [place] [address] [place] [address] [place] [address] [place] [address] [place] [address] [place] [address] [place] [address] [employer] Additional Source Comments The information contained in this document represents components of the legal health record. It is not the complete legal health record.[facility]
--- OUTSIDE RECORDS SUMMARY | 2024-10-26 14:51 | XMS_ITS | Encounter Summary ---
Author Organization [facility] Address [address] [facility] [address] [place] [address] Phone Care Team Providers Care Event Host Name Role Phone Unavailable Primary Care Provider Unavailabl e Encounter Details Date Type Department Care Team (Latest Contact Info) Description 01/04/2020 Ancillary Orders [facility] [address] [place] [address] [place] [address] Bright Jesus, DO [address] [place] [address] Chest pain, unspecified type Social History Tobacco [...] It is not the complete legal health record.[facility]
[2024-10-26 14:57] VITALS: BMI 41.4
== END 2024-10-26 15:34 | disposition home or self-care (01) ==
LOC: HO.HOS 14:34
DX: S52.514A Nondisplaced fracture of right radial styloid process, initial encounter for closed fracture (principal); M79.643 Pain in unspecified hand
CPT/HCPCS: 99024

== ENCOUNTER → 2024-10-26 14:40 | Outpatient (BNV) | payer MEDICAID, SELFPAY | PROVIDERS: Visit Provider Radiology Diagnostic Radiology | DX: S52.511A Displaced fracture of right radial styloid process, initial encounter for closed fracture (principal) | CPT/HCPCS: 73110 ==

== ENCOUNTER 2024-11-01 13:43 | Outpatient (REF) | payer MEDICAID, SELFPAY ==
--- NOTE | ~2024-11-01 | XR_ITS ---
EXAMINATION: XR SHOULDER, LEFT CLINICAL INFORMATION: pain s/p fall COMPARISON: None available. TECHNIQUE: AP external rotation, Grashey, scapular Y, and axillary views of the left shoulder. FINDINGS: The bones and soft tissues are normal. No fracture. Glenohumeral and acromioclavicular alignment is anatomic with normal joint space. No abnormal soft tissue calcifications. XR/XR shoulder LT min 2V IMPRESSION: Unremarkable left shoulder. Electronically signed by: Zohaib Murray MD 11/01/2024 03:18 PM EDT
--- NOTE | ~2024-11-01 | XR_ITS ---
EXAMINATION: XR LUMBOSACRAL SPINE CLINICAL INFORMATION: pain s/p fall COMPARISON: August 17, 2024 TECHNIQUE: Three views of the lumbosacral spine. FINDINGS: Numerous clips are again noted in the pelvis. There are 5 nonrib-bearing lumbar segments. Vertebral body height and alignment is unchanged. Degenerative changes are stable, more pronounced in the lower thoracic spine dated in the lumbar spine. XR/XR lumbar spine 2-3V IMPRESSION: No acute abnormality. Stable degenerative changes. Electronically signed by: Zohaib Murray MD 11/01/2024 03:20 PM EDT
--- OUTSIDE RECORDS SUMMARY | 2024-11-01 13:00 | XMS_ITS | Encounter Summary ---
Author Organization [employer] [facility] [employer] Address [address] [place] [address] [address] [place] [address] Care Team Providers Care Retort Furnace Operator Name Role Phone Name, Kiel BAILEY Primary Care Provider [phone] Katlyn Rodriguez PharmD Unavailable [phone] Ania Spencer Unavailable Opal Leyva Unavailable [phone] Reason for Referral * Consultation (Routine) - Pending Review Specialty Diagnoses / Procedures Referred By Carroll hoover Referred To Contact Occupational Therapy Diagnoses Bilateral hand pain Hemiparesis affecting left side as late effect of cerebrovascular accident (CMS/HCC) Sarita Baker MD [address] [place] [address] Phone: tel: fax: Referral ID Status Reason Start Date Expiration Date Visits Requested Visits Authorized [id number] Pending Review Specialty Services Required 11/01/2024 11/01/2025 1 1 Encounter Details Date Type Department Care Team (Latest Contact Info) Description 11/01/2024 1:00 PM EDT Office Visit [facility] [address] [place] [address] [phone] Sarita Baker MD [address], [place] [id number] Acute bilateral low back pain without sciatica; Acute pain of left shoulder; Bilateral hand pain; Hemiparesis affecting left side as late effect of cerebrovascular accident (CMS/HCC) Social History Tobacco Use Types Packs/Day [...] Sign Reading Time Taken Comments Blood Pressure 136/94 11/01/2024 12:08 PM EDT Pulse 70 11/01/2024 12:08 PM EDT Temperature 36.6 C (97.9 F) 11/01/2024 12:08 PM EDT Respiratory Rate 21 11/01/2024 12:08 PM EDT Oxygen Saturation - - Inhaled Oxygen Concentration - - Weight 108 kg (237 lb 2 oz) 11/01/2024 12:08 PM EDT Height 160 cm (5' 3 ) 11/01/2024 12:08 PM EDT Body Mass Index 42 11/01/2024 12:08 PM EDT documented in this encounter Progress Notes * Sarita Gonzalez MD - 11/01/2024 1:00 PM EDT SUBJECTIVE: Sarita Puga is a 59 y.o. year old female who presents for acute visit . Acute Concerns: Patient reports 2 days ago she had a fall outside the hospital when she was going to her appointment reports it was recommend for her to go to the ED but she did not wanted to, reports she was tryingto seat on her walker and did not put the brake and feel on her buttocks, she tells me she hurt herlower back and left shoulder, denies head trauma or LOC Patient has being having problems using her hands, she has h/o stroke with left hemiparesis Social History Social History Narrative Not on file Problem List[1] B-cell lymphoma ([facility]) Carpal tunnel syndrome Depression Essential hypertension H/O: hysterectomy Hemorrhoids S/P TKR (total knee replacement), right Knee pain Migraine Obstructive sleep apnea syndrome Osteoarthritis of knee Tubular adenoma Anxiety Cocaine abuse, episodic use ([facility]/HCC) Gait instability Hypertriglyceridemia Lipoma of abdominal wall Memory deficit On home oxygen therapy Chronic intractable headache Severe obesity ([facility]/HCC) Tobacco use disorder Chronic obstructive pulmonary disease, unspecified ([facility]) Health care maintenance Urinary incontinence in female Type 2 diabetes mellitus with other specified complication ([facility]) Chronic pain syndrome Chronic, continuous use of opioids Cerebellar mass History of stroke Hemiparesis of left dominant side ([facility]/HCC) Cerebrovascular accident (CVA) ([facility]) Other chest pain Long-term current use of opiate analgesic Non-recurrent acute suppurative otitis media of left ear without spontaneous rupture of tympanic membrane Nondisplaced fracture of right radial styloid process, initial encounter for closed fracture Family History[2] Review of Systems Constitutional: Positive for fatigue. Negative for activity change, appetite change, chills, diaphoresis, fever and unexpected weight change. HENT: Negative. Respiratory: Negative. Cardiovascular: Negative. Musculoskeletal: Positive for arthralgias, back pain and myalgias. OBJECTIVE: Vitals: 11/01/24 1208 BP: (!) 136/94 BP Location: Right arm Patient Position: Sitting BP Cuff Size: Large adult Pulse: 70 Resp: 21 Temp: 97.9 ??F (36.6 ??C) TempSrc: Oral Weight: 237 lb 2 oz (108 kg) Height: 5' 3 (1.6 m) Physical Exam Cardiovascular: Rate and Rhythm: Normal rate and regular rhythm. Pulmonary: Effort: Pulmonary effort is normal. Breath sounds: Normal breath sounds. Abdominal: General: Abdomen is flat. Palpations: Abdomen is soft. Musculoskeletal: Left shoulder: Tenderness present. Decreased range of motion. Right hand: Tenderness present. Decreased range of motion. Decreased strength. Left hand: Tenderness present. Decreased range of motion. Decreased strength. Lumbar back: Spasms and tenderness present. Neurological: Mental Status: She is alert. Follow Up: No follow-ups on file. Medications Ordered Prior to Encounter[3] Problem List Items Addressed This Visit Acute bilateral low back pain without sciatica I will order an x-ray of her lower back and legs if status post fall Patient will be contacted with results I will give patient today Toradol 30 mg IM after this resume same pain medication regimen tomorrow morning, I remind patient she can use her lidocaine patches Relevant Medications ketorolac (Toradol) injection 30 mg (Completed) Acute pain of left shoulder X-ray ordered patient will be contacted with results Toradol IM 30 mg today Resume same pain medication regimen tomorrow morning I remind patient she can also use lidocaine patch locally Relevant Medications ketorolac (Toradol) injection 30 mg (Completed) Other Relevant Orders XR Shoulder 2+ Views Left (Completed) Bilateral hand pain I will refer patient to occupational therapy Relevant Medications ketorolac (Toradol) injection 30 mg (Completed) Other Relevant Orders Referral to Occupational Therapy Hemiparesis affecting left side as late effect of cerebrovascular accident (CMS/HCC) I will refer patient to occupational therapy Relevant Orders Referral to Occupational Therapy [1] Patient Active Problem List Diagnosis B-cell lymphoma (CMS/HCC) Carpal tunnel syndrome Depression Essential hypertension H/O: hysterectomy Hemorrhoids S/P TKR (total knee replacement), right Knee pain Migraine Obstructive sleep apnea syndrome Osteoarthritis of knee Tubular adenoma Anxiety Cocaine abuse, episodic use (CMS/HCC) Gait instability Hypertriglyceridemia Lipoma of abdominal wall Memory deficit On home oxygen therapy Chronic intractable headache Severe obesity ([facility]) Tobacco use disorder Chronic obstructive pulmonary disease, unspecified ([facility]) Health care maintenance Urinary incontinence in female Type 2 diabetes mellitus with other specified complication ([facility]) Chronic pain syndrome Chronic, continuous use of opioids Cerebellar mass History of stroke Hemiparesis of left dominant side ([facility]) Cerebrovascular accident (CVA) ([facility]) Other chest pain Long-term current use of opiate analgesic Non-recurrent acute suppurative otitis media of left ear without spontaneous rupture of tympanic membrane Nondisplaced fracture of right radial styloid process, initial encounter for closed fracture Acute bilateral low back pain without sciatica Acute pain of left shoulder Bilateral hand pain Hemiparesis affecting left side as late effect of cerebrovascular accident ([facility]) [2] No family history on file. [3] Current Outpatient Medications on File Prior to Visit Medication Sig Dispense Refill acetaminophen (Tylenol 8 Hour) 650 MG ER tablet TAKE 1 TABLET BY MOUTH EVERY 8 HOURS NEEDED FOR MILD PAIN DO NOT BREAK, CRUSH, DISSOLVE OR CHEW 90 tablet 1 Advair HFA 115-21 MCG/ACT inhaler albuterol 108 (90 Base) MCG/ACT inhaler Inhale 2 puffs Every 4-6 hours as needed for wheezing. 18 g5 Alcohol Swabs (Alcohol Prep) 70 % pads USE DIRECTED TWICE DAILY 100 each 5 aspirin 81 MG chewable tablet Chew 1 tablet (81 mg) in the evening. 90 tablet 3 Blood Glucose Monitoring Suppl (FreeStyle Lite) device Inject 1 each under the skin 2 times daily. Use to test blood sugar as directed 1 each 0 Blood Pressure Monitor kit Use to check blood pressure daily 1 kit 0 Calcium Carb-Cholecalciferol (Calcium + Vitamin D3) 600-5 MG-MCG tablet Take 1 tablet by mouth 2 times daily. 180 tablet 3 cetirizine (ZyrTEC) 10 MG tablet TAKE 1 TABLET BY MOUTH EVERY MORNING 90 tablet 1 cloNIDine (Catapres) 0.1 MG tablet TAKE 1 TABLET BY MOUTH AT BEDTIME 30 tablet 1 ezetimibe (Zetia) 10 MG tablet TAKE 1 TABLET BY MOUTH EVERY MORNING 30 tablet 11 famotidine (Pepcid) 20 MG tablet TAKE 1 TABLET BY MOUTH TWICE DAILY IN THE MORNING AND IN THE EVENING 180 tablet 0 furosemide (Lasix) 20 MG tablet Take 20 mg by mouth in the morning. gabapentin (Neurontin) 800 MG tablet Take 1 tablet (800 mg) by mouth 3 times daily. 90 tablet 11 glucose blood (FREESTYLE LITE) test strip Use to test blood sugar 2 times daily 50 strip 11 Icosapent Ethyl (Vascepa) 1 g capsule Take 2 capsules (2 g) by mouth with breakfast and with evening meal. 360 capsule 3 insulin glargine (Lantus SoloStar) 100 UNIT/ML pen Inject 44 Units under the skin at bedtime. Increase, as directed, to max of 50 units daily. 15 mL 5 ipratropium-albuterol (Combivent Respimat) 20-100 MCG/ACT inhaler Inhale 1 puff every 6 (six) hours. inhale 1 puff by inhalation route 4 times every day ; may take additional puffs as needed not to exceed 6 puffs in 24hrs lidocaine (Lidoderm) 5 % patch APPLY 1 PATCH TOPICALLY TO SKIN, LEAVE ON FOR 12 HOURS AND OFF FOR 12 HOURS DIRECTED NEEDED FOR MILD PAIN 30 patch 3 lidocaine (Lidoderm) 5 % patch Apply 1 patch topically Once per day. Remove & discard patch within 12 hours or as directed by MD. 30 patch 1 losartan (Cozaar) 50 MG tablet TAKE 1 TABLET BY MOUTH EVERY MORNING 90 tablet 3 meloxicam (Mobic) 7.5 MG tablet TAKE 1 TABLET BY MOUTH ONCE DAILY 30 tablet 11 metFORMIN XR (Glucophage-XR) 500 MG 24 hr tablet Take 1 tablet (500 mg) by mouth at bedtime. 90 tablet 3 metoprolol succinate XL (Toprol-XL) 25 MG 24 hr tablet Take 1 tablet (25 mg) by mouth at bedtime. Do not crush or chew. 90 tablet 3 Misc. Devices (Ezy Dose Pill Cutter) misc Use to cut tablets in half montelukast (Singulair) 10 MG tablet Take 1 tablet (10 mg) by mouth at bedtime. 90 tablet 3 naloxone (Narcan) 4 mg/0.1 mL nasal spray Administer 0.1 mL into affected nostril(s). nitroglycerin (Nitrostat) 0.4 MG SL tablet OXcarbazepine (Trileptal) 150 MG tablet Take 150 mg by mouth before breakfast. Has additional RX for 300 mg, 1.5 tabs at bedtime OXcarbazepine (Trileptal) 300 MG tablet Take 1.5 tablets (450 mg) by mouth at bedtime. 45 tablet 3 oxyCODONE (Roxicodone) 10 MG immediate release tablet Take 1 tablet (10 mg) by mouth 3 times daily for 28 days. Do not start before October 19, 2024. 84 tablet 0 PARoxetine (Paxil) 40 MG tablet TAKE 1 TABLET BY MOUTH AT BEDTIME 30 tablet 0 pyridoxine (Vitamin B-6) 100 MG tablet Take 100 mg by mouth in the morning. rosuvastatin (Crestor) 40 MG tablet Take 1 tablet (40 mg) by mouth Once per day. 90 tablet 1 TechLite Pen [place] 32G X 4 MM misc USE DIRECTED FOUR TIMES DAILY 100 each 11 Tirzepatide (Mounjaro) 15 MG/0.5ML solution auto-injector Inject 15 mg under the skin 1 (one) time per week. 2 mL 11 traZODone (Desyrel) 100 MG tablet Take 1 tablet (100 mg) by mouth if needed at bedtime for sleep. 30 tablet 3 TRUEplus Lancets 33G misc Use to test blood sugar twice daily as directed 100 each 11 [DISCONTINUED] insulin glargine (Lantus SoloStar) 100 UNIT/ML pen Inject 40 Units under the skin atbedtime. 15 mL 5 No current facility-administered medications on file prior to visit. documented in this encounter Miscellaneous Notes * Assessment & Plan Note - Sarita Gonzalez MD - 11/01/2024 4:03 PM EDT Associated Problem(s): Hemiparesis affecting left side as late effect of cerebrovascular accident (CMS/HCC) I will refer patient to occupational therapy * Assessment & Plan Note - Sarita Gonzalez MD - 11/01/2024 4:03 PM EDT Associated Problem(s): Bilateral hand pain I will refer patient to occupational therapy * Assessment & Plan Note - Sarita Gonzalez MD - 11/01/2024 4:03 PM EDT Associated Problem(s): Acute pain of left shoulder X-ray ordered patient will be contacted with results Toradol IM 30 mg today Resume same pain medication regimen tomorrow morning I remind patient she can also use lidocaine patch locally * Assessment & Plan Note - Sarita Gonzalez MD - 11/01/2024 4:02 PM EDT Associated Problem(s): Acute bilateral low back pain without sciatica I will order an x-ray of her lower back and legs if status post fall Patient will be contacted with results I will give patient today Toradol 30 mg IM after this resume same pain medication regimen tomorrow morning, I remind patient she can use her lidocaine patches documented in this encounter Plan of Treatment Upcoming Encounters Date Type Department Care Team (Late st Contact Info) Description 11/15/2024 11:30 AM EDT Clinical Support [facility] [address] [place] [phone] Opal Steiner RN 11/27/2024 10:30 AM EDT Medication Management [facility] [address] [place] [address] Katlyn Rodriguez, PharmD [address] [place] [address] Scheduled Referrals Name Type Priority Associated Diagnoses Orde r Schedule Referral to Occupational Therapy Outpatient Referral Routine Bilateral hand pain Hemiparesis affecting left side as late effect of cerebrovascular accident ([facility]) Expected: 11/01/2024 (Approximate), Expires: 11/01/2025 documented as of this encounter Goals Goal Patient Goal Type Associated Problems Recent Progress Patient-Stated? Author Record your blood pressure once per day Blood Pressure No Puia, Katlyn, PharmD Blood Pressure < 140/90 Blood Pressure 136/94(2024 12:08 PM EDT) No Puia, Katlyn, PharmD Hemoglobin A1c < 7 Result Component 7.5( 11:12 AM EDT) No Puia, Katlyn, PharmD Record your blood sugar as directed Result Component No Puia, Katlyn, PharmD documented as of this encounter Procedures Procedure Name Priority Date/Time Associated Diagnosis Comments XR SHOULDER 2+ VIEWS LEFT Routine 11/01/2024 3:06 PM EDT Acute pain of left shoulder XR LUMBAR SPINE 2-3 VIEWS Routine 11/01/2024 2:27 PM EDT documented in this encounter Results * XR Shoulder 2+ Views Left (11/01/2024 3:06 PM EDT) Anatomical Region Laterality Modality Upper Extremities, Shoulder Left Radi ographic Imaging 11/01/2024 3:06 PM EDT Narrative 11/01/2024 3:21 [place] [address] XRay Report Signed Patient: Sarita Puga MR#: [id number] 92 : 1965 Acct:[id number] Age/Sex: 59 / F ADM Date: 11/01/24 Loc: HO.[facility]X Attending Dr: Sarita Gonzalez MD Ordering Physician: Sarita Baker MD Date of Service: 11/01/24 Procedure(s): XR shoulder LT min 2V Accession Number(s): [id number] cc: Sarita Baker MD; Name,Kiel BAILEY Reason for Exam: pain s/p fall EXAMINATION: XR SHOULDER, LEFT CLINICAL INFORMATION: pain s/p fall COMPARISON: None available. TECHNIQUE: AP external rotation, Grashey, scapular Y, and axillary views of the left shoulder. FINDINGS: The bones and soft tissues are normal. No fracture. Glenohumeral and acromioclavicular alignment is anatomic with normal joint space. No abnormal soft tissue calcifications. XR/XR shoulder LT min 2V IMPRESSION: Unremarkable left shoulder. Electronically signed by: Zohaib Murray MD 11/01/2024 03:18 PM EDT RP Dictated By: Zohaib Murray MD Signed By: <Electronically signed by Zohaib Murray MD in OV> 11/01/24 1518 DD/ 1506 TD/TT: 11/01/24 1508 Director Motion Picture: Procedure Note Donotuseinterpreter, Image - 11/01/[address] [address] XRay Report Signed Patient: Sarita Puga MMR#: [id number] 92 : 1965Acct:[id number] Age/Sex: 59 / FADM Date: 11/01/24 Loc: HO.[facility]HCX Attending Dr: Sarita Gonzalez MD Ordering Physician: Sarita Baker MD Date of Service: 11/01/24 Procedure(s): XR shoulder LT min 2V Accession Number(s): [id number] cc: Sarita Baker MD; Name,Kiel BAIELY Reason for Exam: pain s/p fall EXAMINATION: XR SHOULDER, LEFT CLINICAL INFORMATION: pain s/p fall COMPARISON: None available. TECHNIQUE: AP external rotation, Grashey, scapular Y, and axillary views of the left shoulder. FINDINGS: The bones and soft tissues are normal. No fracture. Glenohumeral and acromioclavicular alignment is anatomic with normal joint space. No abnormal soft tissue calcifications. XR/XR shoulder LT min 2V IMPRESSION: Unremarkable left shoulder. Electronically signed by: Zohaib Murray MD 11/01/2024 03:18 PM EDT RP Dictated By: Zohaib Murray MD Signed By: <Electronically signed by Zohaib Murray MD in OV> 11/01/24 1518 DD/ 1506 TD/TT: 11/01/24 1508 Director Motion Picture: us Mary Adenike Gonzalez MD IMG XR PROCEDURES Fin al Result * XR Lumbar Spine 2-3 Views (11/01/2024 2:27 PM EDT) Anatomical Region Laterality Modality Spine, L-spine Radiographic Diana ging 11/01/2024 2:27 PM EDT Narrative 11/01/2024 3:23 PM EDT [facility] [address] [place] [address] XRay Report Signed Patient: Sarita Puga MR#: [id number] 92 : 1965 Acct:[id number] Age/Sex: 59 / F ADM Date: 11/01/24 [facility]: Sarita Gonzalez MD Ordering Physician: Sarita Baker MD Date of Service: 11/01/24 Procedure(s): XR lumbar spine 2-3V Accession Number(s): [id number] cc: Sarita Baker MD; Name,Kiel BAILEY Reason for Exam: pain s/p fall EXAMINATION: XR LUMBOSACRAL SPINE CLINICAL INFORMATION: pain s/p fall COMPARISON: August 17, 2024 TECHNIQUE: Three views of the lumbosacral spine. FINDINGS: Numerous clips are again noted in the pelvis. There are 5 nonrib-bearing lumbar segments. Vertebral body height and alignment is unchanged. Degenerative changes are stable, more pronounced in the lower thoracic spine dated in the lumbar spine. XR/XR lumbar spine 2-3V IMPRESSION: No acute abnormality. Stable degenerative changes. Electronically signed by: Zohaib Murray MD 11/01/2024 03:20 PM EDT Dictated By: Zohaib Murray MD Signed By: <Electronically signed by Zohaib Murray MD in OV> 11/01/24 1520 DD/ 1427 TD/TT: 11/01/24 1508 Director Motion Picture: Procedure Note Donotuseinterpreter, Image - 11/01/2024 [facility] [address] [place] [address] XRay Report Signed Patient: Sarita Puga MMR#: [id number] 92 : 1965Acct:[id number] Age/Sex: 59 / FADM Date: 11/01/24 Loc: HO.[facility]HCX Attending Dr: Sarita Gonzalez MD Ordering Physician: Sarita Baker MD Date of Service: 11/01/24 Procedure(s): XR lumbar spine 2-3V Accession Number(s): [id number] cc: Sarita Baker MD; Name,Kiel BAILEY Reason for Exam: pain s/p fall EXAMINATION: XR LUMBOSACRAL SPINE CLINICAL INFORMATION: pain s/p fall COMPARISON: August 17, 2024 TECHNIQUE: Three views of the lumbosacral spine. FINDINGS: Numerous clips are again noted in the pelvis. There are 5 nonrib-bearing lumbar segments. Vertebral body height and alignment is unchanged. Degenerative changes are stable, more pronounced in the lower thoracic spine dated in the lumbar spine. XR/XR lumbar spine 2-3V IMPRESSION: No acute abnormality. Stable degenerative changes. Electronically signed by: Zohaib Murray MD 11/01/2024 03:20 PM EDT Dictated By: Zohaib Murray MD Signed By: <Electronically signed by Zohaib Murray MD in OV> 11/01/24 1520 DD/ 1427 TD/TT: 11/01/24 1508 Director Motion Picture: us Sarita Gonzalez MD IMG XR PROCEDURES Fin al Result documented in this encounter Visit Diagnoses Diagnosis Acute bilateral low back pain without sciatica Acute pain of left shoulder Bilateral hand pain Hemiparesis affecting left side as late effect of cerebrovascular accident (CMS/HCC) documented in this encounter Administered Medications Inactive Administered Medications - up to 3 most recent administrations Medication Order MAR Action Action Date Dose Rate Site ketorolac (Toradol) injection 30 mg 30 mg, Intramuscular, Once, On Catina 11/01/24 at 1330, For 1 doseIndications:Acute bilateral low back pain without sciatica,Acute pain of left shoulder Given 11/01/2024 1:30 PM EDT 30 mg L eft Deltoid documented in this encounter Additional Health Concerns Assessment Noted Time PHQ-9 Depression Total Score: 7 09/05/19 11:46 AM EDT documented as of this encounter Care Teams Retort Furnace Operator Relationship Specialty Start Date End Date Name, MD Kiel [address] [place] [address] PCP - General Family Medicine 07/15/15 Katlyn Rodriguez PharmD [address] [place] [address] Pharmacist Internal Medicine 10/08/22 Ania Spencer 08/20/24 Opal Leyva Registered Nurse 10/29/24 Marta Ovalle Childcare AttendantStock Tracer 05/25/23 documented as of this encounter
--- OUTSIDE RECORDS SUMMARY | 2024-11-01 17:34 | XMS_ITS | Encounter Summary ---
Author Organization [employer] Address [address] [place] [address] 7t [place] [address] Care Team Providers Care Assistant Produce Manager Name Role Phone Name, Kiel BAILEY Primary Care Provider [phone] Katlyn Rodriguez PharmD Unavailable [phone] Nehal Ann RN Unavailable [phone] Ania Spencer Unavailable Opal Leyva Unavailable [phone] Encounter Details Date Type Department Care Team (Late st Contact Info) Description 08/26/2022 Orders Only [facility] [address] [place] [address] Leia Gonzales LPN Social History Tobacco Use [...] Description 11/15/2024 11:30 AM EDT Clinical Support [address] [address] Opal [place], RN 11/27/2024 10:30 AM EDT Medication Management [address] [address] Katlyn Rodriguez PharmD [address] [place] [address] documented as of this encounter Visit Diagnoses Not on filedocumented in this encounter Additional Health Concerns Assessment Noted Time PHQ-9 Depression Total Score: 7 07/15/19 2:39 PM EDT documented as of this encounter Care Teams Assistant Produce Manager Relationship Specialty Start Date End Date Name, MD Kiel [address] [place] [address] PCP - General Family Medicine 07/15/15 Katlyn Rodriguez, PharmD [address] [place] [place] [address] Pharmacist Internal Medicine 10/08/22 Nehal Ann, MARINA [address] [place] [address] Registered Nurse Family Medicine 08/20/24 10/29/24 Ania Spencer 08/20/24 Opal Leyva Registered Nurse 10/29/24 Marta Ovalle Multi Skilled OperatorReal Estate Investment Analyst 05/25/23 documented as of this encounter
--- OUTSIDE RECORDS SUMMARY | 2024-11-01 17:34 | XMS_ITS | Encounter Summary ---
Author Organization [employer] Address [address] [facility] 7t [place] [address] Care Team Providers Care Wash Operator Name Role Phone Name, Kiel BAILEY Primary Care Provider Katlyn Rodriguez PharmD Unavailable [phone] Nehal Ann RN Unavailable [phone] Ania Spencer Unavailable Opal Leyva Unavailable [phone] Encounter Details Date Type Department Care Team (Late st Contact Info) Description 02/20/2024 Telephone [facility] [address] [place] [address] Name, MD Kiel [address] [place] [address] Social History Tobacco Use Types Packs/Day Years [...] Description 11/15/2024 11:30 AM EDT Clinical Support [facility] [address] [place] [address] Opal Steiner RN 11/27/2024 10:30 AM EDT Medication Management [facility] [address] [place] [address] Puia, Katlyn, PharmD [address] [place] [address] documented as of this encounter Goals Goal [...] documented as of this encounter Care Teams Wash Operator Relationship Specialty Start Date End Date Name, MD Kiel [address] [place] [address] PCP - General Family Medicine 07/15/15 Katlyn Rodriguez PharmD [address] [place] [address] Pharmacist Internal Medicine 10/08/22 Nehal Ann RN [address] [place] [address] Registered Nurse Family Medicine 08/20/24 10/29/24 Ania Spencer 08/20/24 Opal Leyva Registered Nurse 10/29/24 Marta Ovalle Guide ChangerWeather Strip Installer 05/25/23 documented as of this encounter
--- OUTSIDE RECORDS SUMMARY | 2024-11-01 17:34 | XMS_ITS | Encounter Summary ---
Author Organization [employer] Address [address] [facility] 7t [place] [address] Care Team Providers Care Booster Station Operator Name Role Phone Name, Kiel BAILEY Primary Care Provider [phone] Ktalyn Rodriguez PharmD Unavailable [phone] Nehal Ann RN Unavailable [phone] Ania Spencer Unavailable Opal Leyva Unavailable Encounter Details Date Type Department Care Team (Late st Contact Info) Description 05/01/2024 Telephone [facility] [address] [place], [place] [phone] Name, MD Kiel [address] [place], [place] [phone] Social History Tobacco Use Types Packs/Day Years [...] Description 11/15/2024 11:30 AM EDT Clinical Support [facility]INE [address] [place] [address] Opal Steiner RN 11/27/2024 10:30 AM EDT Medication Management [facility]INE [address] [place] [address] Katlyn Rodriguez PharmD [address] [place] [address] documented as of this encounter Goals Goal Patient Goal Type Associated Problems Recent Progress Patient-Stated? Author Record your blood pressure once per day Blood Pressure No Katlyn Rodrigeuz PharmD Blood Pressure < 140/90 Blood Pressure [...] documented as of this encounter Care Teams Booster Station Operator Relationship Specialty Start Date End Date Name, MD Kiel [address] [place] [address] PCP - General Family Medicine 07/15/15 Puia, Katlyn, PharmD [address] [place] [address] Pharmacist Internal Medicine 10/08/22 Nehal Ann RN [address] [place] [address] Registered Nurse Family Medicine 08/20/24 10/29/24 Ania Spencer 08/20/24 Opal Leyva Registered Nurse 10/29/24 Marta Ovalle Head Waiter/Waitress BanquetDoctor Of Osteopathy 05/25/23 documented as of this encounter
--- OUTSIDE RECORDS SUMMARY | 2024-11-01 17:35 | XMS_ITS | Clinical Summary ---
Author Organization [facility] Address [address] [place] [address] [place] [address] Phone Care Team Providers Care Physician Chief Of Pathology Name Role Phone Unavailable Primary Care Provider [...] Devices Not on file Insurance [employer] [place] [address] [place] [address] [place] [place] [address] [place] [place] [address] [place] [place] [address] [employer] Additional Source Comments The information contained in this document represents components of the legal health record. It is not the complete legal health record.[facility]
--- OUTSIDE RECORDS SUMMARY | 2024-11-01 17:35 | XMS_ITS | Encounter Summary ---
Author Organization [employer] Address [address] [place] [address] 7t [place] [address] Care Team Providers Care Cardiopulmonary Technologist Chief Name Role Phone Name, Kiel BAILEY Primary Care Provider [phone] Katlyn Rodriguez PharmD Unavailable [phone] Nehal Ann RN Unavailable [phone] Ania Spencer Unavailable Opal Leyva Unavailable [phone] Reason for Visit * Reason Onset Date Comments FYI 08/03/2024 Encounter Details Date Type Department Care Team (Late st Contact Info) Description 08/03/[address] [facility] MED[facility]INE [address] [place], [place] [phone] Name, MD Kiel [address] [place], [place] [phone] FYI Social History Tobacco Use Types Packs/Day Years [...] - 08/03/2024 2:00 PM EDT Tc from [facility] with N stating pt has an upcoming appointment with pcp and would like to report: 1) Pt was discharged yesterday 08/02. Reason: COPD. 2) F/u Left ear symptoms. Pt unable to hear. 3) F/u pull up prescription. Any questions contact [facility] [phone] documented in this encounter Plan of Treatment Upcoming Encounters Date Type Department Care Team (Late st Contact Info) Description 11/15/2024 11:30 AM EDT Clinical Support [address] [phone] Opal Steiner RN 11/27/2024 10:30 AM EDT Medication Management [address] [phone] Puia, Katlyn, PharmD [address] [place] [address] documented as of this encounter Goals Goal [...] documented as of this encounter Care Teams Cardiopulmonary Technologist Chief Relationship Specialty Start Date End Date Name, MD Kiel [address] [place] [address] PCP - General Family Medicine 07/15/15 Puia, Katlyn, PharmD [address] [place] [address] Pharmacist Internal Medicine 10/08/22 Nehal Ann, MARINA [address] [place] [address] Registered Nurse Family Medicine 08/20/24 10/29/24 Ania Spencer 08/20/24 Opal Leyva Registered Nurse 10/29/24 Marta Ovalle Unload AssociateDirector Business Travel 05/25/23 documented as of this encounter
--- OUTSIDE RECORDS SUMMARY | 2024-11-01 17:35 | XMS_ITS | Encounter Summary ---
Author Organization [employer] Address [address] [place] [address] 7t [place] [address] Care Team Providers Care Transporter Driver Name Role Phone Name, Kiel BAILEY Primary Care Provider [phone] Katlyn Rodriguez PharmD Unavailable [phone] Nehal Ann RN Unavailable [phone] Ania Spencer Unavailable Opal Leyva Unavailable [phone] Reason for Visit * Reason Onset Date Comments Nurse Triage 07/04/2024 Encounter Details Date Type Department Care Team (Late st Contact Info) Description 07/04/2024 Telephone [facility] [address] [place], [place] [phone] Name, MD Kiel [address] [place], [place] [phone] Nurse Triage Social History Tobacco Use Types [...] 07/04/2024 11:25 AM EDT Triage call with [facility] Care Mgr ID [id number]. Pt reports headache over the entire head. [...] this time. Daughter is advised to call [facility] for prescription of roxicodone which [...] You become worse * Telephone Encounter - Areth[place]o [place] - 07/04/2024 10:57 AM EDT Symptom: Headache Outcome: Schedule an urgent appointment (within 4 hours) or talk to a nurse or provider soon Reason: Getting worse The caller accepted this outcome. Contact pt at [phone] (cymraes) documented in this encounter Plan of Treatment Upcoming Encounters Date Type Department Care Team ([facility] st Contact Info) Description 11/15/2024 11:30 AM EDT Clinical Support [address] [address] Opal Steiner RN 11/27/2024 10:30 AM EDT Medication Management [address] [address] Puia, Katlyn, PharmD [address] [place] [address] documented as of this encounter Goals Goal [...] documented as of this encounter Care Teams Transporter Driver Relationship Specialty Start Date End Date Name, MD Kiel [address] [place] [address] PCP - General Family Medicine 07/15/15 Katlyn Rodriguez PharmD [address] [place] [address] Pharmacist Internal Medicine 10/08/22 Nehal Ann RN [address] [place] [address] Registered Nurse Family Medicine 08/20/24 10/29/24 Ania Spencer 08/20/24 Opal Leyva Registered Nurse 10/29/24 Marta Ovalle Home Health Care Case ManagerCremator 05/25/23 documented as of this encounter
--- OUTSIDE RECORDS SUMMARY | 2024-11-01 17:35 | XMS_ITS | Encounter Summary ---
Author Organization [employer] Address [address] [place] [address] 7t [place] [address] Care Team Providers Care Associate Teacher Name Role Phone Name, Kiel BAILEY Primary Care Provider [phone] Katlyn Rodriguez PharmD Unavailable [phone] Nehal Ann RN Unavailable [phone] Ania Spencer Unavailable Opal Leyva Unavailable [phone] Reason for Visit * Reason Onset Date Comments Medication Problem 08/30/2023 Encounter Details Date Type Department Care Team (Late st Contact Info) Description 08/30/2023 Telephone [facility] MEDICINE [address] [place], [place] [phone] Name, MD Kiel [address] [place], [place] [phone] Medication Problem Social History Tobacco Use Types [...] the past 12 months, has t he [employer], gas, oil or water company threatened to [...] Not at all 09/02/2023 10 :30 AM EDT Erika Zacarias Feeling bad about yourself - or that [...] Description 11/15/2024 11:30 AM EDT Clinical Support [facility] [address] [place] [address] Opal Steiner RN 11/27/2024 10:30 AM EDT Medication Management [facility] [address] [place] [address] Puia, Katlyn, PharmD [address] [place] [address] documented as of this encounter Goals Goal Patient Goal Type Associated Problems Recent Progress Patient-Stated? Author Record your blood pressure once per day Blood Pressure No Puia, Katlyn, PharmD Blood Pressure < 140/90 Blood Pressure 136/94(2024 12:08 PM EDT) No Puia, Katlyn, PharmD Hemoglobin A1c < 7 Result Component 7.5( 5 11:12 AM EDT) No Puia, Katlyn, PharmD Record your blood sugar as directed Result Component No Puia, Katlyn, PharmD documented as of this encounter Visit Diagnoses Not on filedocumented in this encounter Additional Health Concerns Assessment Noted Time PHQ-9 Depression Total Score: 7 07/15/19 23 2:39 PM EDT documented as of this encounter Care Teams Associate Teacher Relationship Specialty Start Date End Date Name, MD Kiel [address] [place] [address] PCP - General Family Medicine 07/15/15 Katlyn Rodriguez, PharmD [address] [place] [address] Pharmacist Internal Medicine 10/08/22 Nehal Ann RN [address] [place] [address] Registered Nurse Family Medicine 08/20/24 10/29/24 Ania Spencer 08/20/24 Opal Leyva Registered Nurse 10/29/24 Marta Ovalle Screen TackerMultimedia Journalist 05/25/23 documented as of this encounter
--- OUTSIDE RECORDS SUMMARY | 2024-11-01 17:35 | XMS_ITS | Clinical Summary ---
Author Organization [employer] Address [address] [place] [address] [address] [place] [address] Care Team Providers Care Kickboxing Instructor Name Role Phone Name, Kiel BAILEY Primary Care Provider [phone] Katlyn Rodriguez PharmD Unavailable Ania Spencer Unavailable pOal Leyva Unavailable [phone] Allergies Active Allergy Reactions Criticality Noted Date [...] Active nitroglycerin (Nitrostat) 0.4 MG SL tablet 09/24/19 23 Active Advair HFA 115-21 MCG/ACT inhaler 08/28/19 23 Active furosemide (Lasix) 20 MG tablet Take 20 mg by mouth in the morning. 09/24/19 23 Active pyridoxine (Vitamin B-6) 100 MG tablet Take 100 mg by mouth in the morning. 01/06/20 23 Active Blood Pressure Monitor kitIndications: Essential hypertension Use to check blood pressure daily 1 kit 05/26/19 24 Active acetaminophen (Tylenol 8 Hour) 650 MG ER tablet TAKE 1 TABLET BY MOUTH EVERY 8 HOURS NEEDED FOR MILD PAIN DO NOT BREAK, CRUSH, DISSOLVE OR CHEW 90 tablet 1 01/16/20 24 Active Alcohol Swabs (Alcohol Prep) 70 % pads USE DIRECTED TWICE DAILY 100 each 5 01/31/20 24 Active OXcarbazepine (Trileptal) 150 MG tablet Take 150 mg by mouth before breakfast. Has additional RX for 300 mg, 1.5 tabs at bedtime Active Icosapent Ethyl (Vascepa) 1 g capsuleIndicati ons:Type 2 diabetes mellitus with other specified complication, with long-term current use of insulin ([facility]),Hyper triglyceridemia Take 2 capsules (2 g) [...] chew. 90 tablet 3 03/23/19 25 Active OXcarbazepine (Trileptal) 300 MG tablet Take 1.5 tablets (450 mg) by mouth at bedtime. 45 tablet 3 05/09/19 25 Active albuterol 108 (90 Base) MCG/ACT inhalerIndicati ons:Moderate asthma with exacerbation, unspecified whether persistent Inhale 2 puffs Every 4-6 hours as needed for wheezing. 18 g 5 06/08/19 25 026 Active Tirzepatide (Mounjaro) 15 MG/0.5ML solution auto-injectorIn dications:Type 2 diabetes mellitus with other specified complication, with long-term current use of insulin (CMS/[facility]) Inject 15 mg under the skin 1 (one) time per week. 2 mL 06/08/19 25 Active ezetimibe (Zetia) 10 MG tabletIndicatio ns:Type 2 diabetes mellitus with other specified complication, with long-term current use of insulin ([facility]) TAKE 1 TABLET BY MOUTH EVERY MORNING 30 tablet 07/24/19 25 Active cetirizine (ZyrTEC) 10 MG tablet TAKE 1 TABLET BY MOUTH EVERY MORNING 90 tablet 07/25/19 25 Active lidocaine (Lidoderm) 5 % patch APPLY 1 PATCH TOPICALLY TO SKIN, LEAVE ON FOR 12 HOURS AND OFF FOR 12 HOURS DIRECTED NEEDED FOR MILD PAIN 30 patch 3 08/17/19 25 Active rosuvastatin (Crestor) 40 MG tabletIndicatio ns:Type 2 diabetes mellitus with other specified complication, with long-term current use of insulin ([facility]),Histo ry of stroke,Tobacco use disorder,Hypert riglyceridemia Take 1 tablet (40 mg) by mouth Once per day. 90 tablet 1 08/17/19 25 Active gabapentin (Neurontin) 800 MG tablet Take 1 tablet (800 mg) by mouth 3 times daily. 90 tablet 08/21/19 25 026 Active famotidine (Pepcid) 20 MG tablet TAKE 1 TABLET BY MOUTH TWICE DAILY IN THE MORNING AND IN THE EVENING 180 tablet 08/23/19 25 Active aspirin 81 MG chewable tabletIndicatio ns:Type 2 diabetes mellitus with other specified complication, with long-term current use of insulin ([facility]) Chew 1 tablet (81 mg) in the evening. 90 tablet 08/23/19 25 Active metFORMIN XR (Glucophage-XR) 500 MG 24 hr tabletIndicatio ns:Type 2 diabetes mellitus with obesity (CMS/HCC) ([facility]) Take 1 tablet (500 mg) by mouth at bedtime. 90 tablet 3 08/23/19 25 Active losartan (Cozaar) 50 MG tabletIndicatio ns:Essential hypertension TAKE 1 TABLET BY MOUTH EVERY MORNING 90 tablet 09/13/19 25 Active meloxicam (Mobic) 7.5 MG tablet TAKE 1 TABLET BY MOUTH ONCE DAILY 30 tablet 09/13/19 25 Active TechLite Pen [place] 32G X 4 MM miscIndications :Type 2 diabetes mellitus with other specified complication ([facility]) USE DIRECTED FOUR TIMES DAILY 100 each 09/29/19 25 Active Blood Glucose Monitoring Suppl (FreeStyle Lite) deviceIndicatio ns:Type 2 diabetes mellitus with other specified complication, with long-term current use of insulin ([facility]) Inject 1 each under the skin 2 times daily. Use to test blood sugar as directed 1 each 10/03/19 25 Active glucose blood (FREESTYLE LITE) test stripIndication s:Type 2 diabetes mellitus with other specified complication, with long-term current use of insulin ([facility]) Use to test blood sugar 2 times daily 50 strip 10/03/19 25 Active TRUEplus Lancets 33G miscIndications :Type 2 diabetes mellitus with other specified complication, with long-term current use of insulin ([facility]) Use to test blood sugar twice daily as directed 100 each 10/03/19 25 Active lidocaine (Lidoderm) 5 % patchIndication s:Nondisplaced fracture of right radial styloid process, initial encounter for closed fracture Apply 1 patch topically Once per day. Remove & discard patch within 12 hours or as directed by MD. 30 patch 1 10/10/19 25 Active oxyCODONE (Roxicodone) 10 MG immediate release tabletIndicatio ns:Cerebellar mass,Chronic intractable headache, unspecified headache type Take 1 tablet (10 mg) by mouth 3 times daily for 28 days. Do not start before October 19, 2024. 84 tablet 10/20/19 25 025 Active traZODone (Desyrel) 100 MG tablet Take 1 tablet (100 mg) by mouth if needed at bedtime for sleep. 30 tablet 3 10/20/19 25 Active PARoxetine (Paxil) 40 MG tablet TAKE 1 TABLET BY MOUTH AT BEDTIME 30 tablet 10/20/19 25 Active cloNIDine (Catapres) 0.1 MG tabletIndicatio ns:Psychophysio logical insomnia TAKE 1 TABLET BY MOUTH AT BEDTIME 30 tablet 1 10/20/19 25 Active Misc. Devices (Ezy Dose Pill Cutter) misc Use to cut tablets in half 09/19/19 25 Active insulin glargine (Lantus SoloStar) 100 UNIT/ML penIndications: Type 2 diabetes mellitus with other specified complication, with long-term current use of insulin ([facility]) Inject 44 Units under the skin at bedtime. Increase, as directed, to max of 50 units daily. 15 mL 5 10/30/19 25 Active cloNIDine (Catapres) 0.1 MG tabletIndicatio ns:Psychophysio logical insomnia TAKE 1 TABLET BY MOUTH AT BEDTIME 30 tablet 1 05/05/19 25 025 Discontinued(R eorder (will not trigger notification to Pharmacy)) PARoxetine (Paxil) 40 MG tablet TAKE 1 TABLET BY MOUTH AT BEDTIME 30 tablet 05/05/19 25 025 Discontinued(R eorder (will not trigger notification to Pharmacy)) traZODone (Desyrel) 100 MG tablet Take 100 mg by mouth if needed at bedtime for sleep. 05/10/19 025 Discontinued(R eorder (will not trigger notification to Pharmacy)) oxyCODONE (Roxicodone) 10 MG immediate release tabletIndicatio ns:Cerebellar mass,Chronic intractable headache, unspecified headache type Take 1 tablet (10 mg) by mouth 3 times daily for 28 days. Do not start before September 21, 2024. 84 tablet 09/22/19 25 025 Discontinued ciprofloxacin-h ydrocortisone (Cipro HC Otic) otic suspension Administer 3 drops into each ear 2 times daily for 7 days. 10 mL 10/03/19 25 025 insulin glargine (Lantus SoloStar) 100 UNIT/ML penIndications: Type 2 diabetes mellitus with other specified complication, with long-term current use of insulin ([facility]) Inject 40 Units under the skin at bedtime. 15 mL 5 10/03/19 25 025 Discontinued(R eorder (will not trigger notification to Pharmacy)) Hospital, Clinic, or Other Facility Administered Medication Ordered Dose Route Frequency Start Date End Date Status ketorolac (Toradol) injection 30 mgIndications:Acute bilateral low back pain without sciatica,Acute pain of left shoulder 30 mg IM Once 11/01/2024 11/01/2024 Ended Active Problems Problem Noted Date Diagnosed Date Acute bilateral low back pain without sciatica 0 11/01/2024 Assessment & Plan (11/01/2024 4:03 PM EDT): I will order an x-ray of her lower back and legs if status post fall Patient will be contacted with results I will give patient today Toradol 30 mg IM after this resume same pain medication regimen tomorrow morning, I remind patient she can use her lidocaine patches Acute pain of left shoulder 11/01/2024 Assessment & Plan (11/01/2024 4:03 PM EDT): X-ray ordered patient will be contacted with results Toradol IM 30 mg today Resume same pain medication regimen tomorrow morning I remind patient she can also use lidocaine patch locally Bilateral hand pain 11/01/2024 Assessment & Plan (11/01/2024 4:03 PM EDT): I will refer patient to occupational therapy Hemiparesis affecting left s eddi as late effect of cerebrovascular accident 11/01/2024 Assessment & Plan (11/01/2024 4:03 PM EDT): I will refer patient to occupational therapy Nondisplaced fracture of rig ht radial styloid [...] to the hospital Case was presented to [facility] emergency room Hemiparesis of left dominant side 08/11/2024 Assessment & Plan (08/17/2024 1:36 PM EDT): Patient will benefit from PT evaluation and after evaluation at the hospital to be referred to acute PT center Cerebrovascular accident (CVA) 08/11/2024 History of stroke 07/30/2024 Cerebellar mass 06/28/2024 Chronic, continuous use of opioids 11/29/2023 Overview (11/29/2023): Dx: OA knee Tx: oxycodone 10mg BID LICENSED PHYSICAL THERAPIST last signed: 05/03/23 Chronic pain syndrome 05/03/2023 [...] EST): I presented the case to [facility] emergency room, patient will go by ambulance [...] tolerate CPAP On nocturnal oxygen Follows with [facility] pulmonary ([place]) Cocaine abuse, episodic use 06/17/2010 Depression 06/05/2009 [...] for Paxlovid sent to the pharmacy -Utilized [place] drug interaction order checker packer processer to assess interactions with current med list [...] Encounters Date Type Department Care Team Description 11/01/2024 1:00 PM EDT Office Visit [facility] [address] [place] [address] Sarita Baker MD Acute bilateral low back pain without sciatica; Acute pain of left shoulder; Bilateral hand pain; Hemiparesis affecting left side as late effect of cerebrovascular accident ([facility]) 11/01/2024 Travel 11/01/2024 Telephone [facility] [address] [place] [address] Kiel Shaffer MD Nurse Triage 10/29/2024 Telephone [facility] [address] [place] [address] Katlyn Rodriguez, PharmD 10/29/2024 Travel 10/18/2024 Refill [facility] [address] [place] [address] Kiel Shaffer MD Psychophysiological insomnia 10/18/2024 Refill [facility] [address] [place], [place] [phone] Lizzie Alfaro NP Cerebellar mass; Chronic intractable headache, unspecified headache type 10/17/2024 Patient Outreach [facility] [address] [place], [place] [phone] Kiel Shaffer MD Care Coordination (C3CM f/u call- LVM) 10/16/2024 Patient Outreach [facility] [address] [place], [place] [phone] Kiel Shaffer MD 10/09/2024 2:00 PM EDT Office Visit [address] [address] Sarita Baker MD Essential hypertension (Primary Dx); Nondisplaced fracture of right radial styloid process, initial encounter for closed fracture 10/09/2024 Travel 10/09/[address] [address] Kiel Shaffer MD ER Follow-up; Nurse Triage 10/09/[address] [address] Kiel Shaffer MD No Show 10/06/2024 Orders Only [facility] External Provider, [facility] 10/05/[address] [address] Kiel Shaffer MD Referral 10/04/2024 Patient Outreach [address] [address] Kiel Shaffer MD Care Management ([facility] TC #2-lvm) 10/02/2024 10:40 AM EDT Office Visit [address] [address] Victorino Graves MD Acute otitis externa of left ear, unspecified type (Primary Dx) 10/02/[address] [address] Kiel Shaffer MD 10/02/2024 Travel 09/28/[address] [address] Kiel Shaffer MD Type 2 diabetes mellitus with other specified complication ([facility]) 09/21/2024 Patient Outreach [address] [address] Kiel Shaffer MD Care Management ([facility] TC #1-lvm) 09/19/2024 9:00 AM EDT Clinical Support [address] [address] Opal Steiner, RN Long-term current use of opiate analgesic (Primary Dx) 09/19/2024 Refill [facility] [address] [place] [phone] Opal Steiner, RN Cerebellar mass; Chronic intractable headache, unspecified headache type 09/19/2024 Travel 09/12/2024 Refill [facility] [address] [place] [address] Kiel Shaffer MD 09/10/2024 Refill [facility] [address] [place] [address] Katlyn Rodriguez PharmD Essential hypertension 09/06/2024 Orders Only [address] [address] Lizzie Alfaro, GERARDO Left arm weakness (Primary Dx) 09/06/2024 Orders Only [address] [address] Lizzie Alfaro, GERARDO Weakness of both lower extremities (Primary Dx); Hemiparesis of left dominant side as late effect of cerebral infarction (CMS/HCC) 09/06/[address] [address] Kiel Shaffer MD PT Order 09/06/[address] [address] Kiel Shaffer MD Requesting Call Back 09/05/2024 11:30 AM EDT Office Visit [address] [address] Sravanthi Robbins MD Type 2 diabetes mellitus [...] 40.0 to 44.9 in adult 09/05/[address] [address] Kiel Shaffer MD Medication Question; Prior Authorization 09/05/2024 Patient Outreach [facility] [address] [place] [address] Kiel Shaffer MD 09/05/2024 Travel 09/05/2024 Telephone [facility] [address] [place] [address] Kiel Shaffer MD Prior Authorization 09/05/2024 Telephone [facility] [address] [place] [address] Kiel Shaffer MD Nurse Triage 09/04/2024 Plan of Care Documentation [facility] [address] [place] [address] 09/04/[address] [address] Kiel Shaffer MD Cerebellar mass; Chronic intractable headache, unspecified headache type 09/04/2024 Patient Outreach [facility] [address] [place] [address] Kiel Shaffer MD Care Coordination ([facility] initial assessment/ enrollment) 09/04/2024 Patient Outreach [facility] [address] [place] [address] Kiel Shaffer MD 09/03/2024 5:40 PM EDT Office Visit [facility] [address] [address] Sergio Troy MD Non-recurrent acute suppurative otitis media of left ear without spontaneous rupture of tympanic membrane (Primary Dx) 09/03/2024 Orders Only [facility] [address] [place] [address] Sergio Troy MD 09/03/2024 Travel 08/30/2024 Telephone [facility] [address] [place] [address] Kiel Shaffer MD Referral 08/29/2024 Telephone [facility] [address] [place] [address] Kiel Shaffer MD Medication Question 08/22/2024 Refill [facility] [address] [place] [address] Katlyn Rodriguez, PharmD Type 2 diabetes mellitus with other specified complication, with long-term current use of insulin (CMS/HCC); Type 2 diabetes mellitus with obesity (CMS/HCC) (CMS/HCC) 08/22/2024 Patient Outreach [facility] [address] [place], [place] [phone] Kiel Shaffer MD 08/22/2024 Refill [facility] [address] [place] [address] Kiel Shaffer MD Urticaria 2024 Patient Outreach [facility] [address] [place], [place] [phone] Kiel Shaffer MD Care Coordination (C3/CM Outreach) 2024 Refill [facility] [address] [place] [address] Katlyn Rodriguez PharmD Type 2 diabetes mellitus with other specified complication, with long-term current use of insulin (CMS/HCC); Type 2 diabetes mellitus with obesity (CMS/HCC) (CMS/[facility]) 08/20/2024 1:45 PM EDT Office Visit [facility] [address] [place] [address] Kiel Shaffer MD Thalamic pain syndrome (Primary Dx) 08/20/2024 Travel 08/20/2024 Patient Outreach [facility] [address] [place] [address] Kiel Shaffer MD Care Coordination (C3/CM Chart Review) 08/20/2024 Telephone [facility] [address] [place] [address] Kiel Shaffer MD Appointment Request 08/20/2024 Telephone [facility] [address] [place] [address] Kiel Shaffer MD ER Follow-up 08/20/[address] [address] Opal Steiner, RN NCNS for LICENSED PHYSICAL THERAPIST RV today 08/20/2024 Patient Outreach [facility] [address] [place] [address] Kiel Shaffer MD Care Coordination ([facility] Chart review) 08/20/2024 Patient Outreach [address] [address] Kiel Shaffer MD 08/17/2024 9:20 AM EDT Office Visit [facility] [address] [place] [address] Sarita Baker MD Other chest pain; Gait instability; Hemiparesis of left dominant side as late effect of cerebral infarction (CMS/HCC) 08/17/2024 Telephone [facility] [address] [place] [address] Kiel Shaffer MD Referral 08/17/[address] [address] Sarita Baker MD Nurse Triage 08/17/2024 Travel 08/16/[address] [address] Katlyn Rodriguez PharmD Prior Authorization (CGM; Shira 3) 08/16/2024 Travel 08/15/2024 9:30 AM EDT Clinical Support [address] [address] Meghan Ramirez, MARINA Bilateral impacted cerumen 08/15/2024 Travel 08/15/2024 Refill [facility] [address] [place] [address] Victorino Graves MD 08/13/[address] [address] Renetta Power, MARINA 08/11/2024 9:20 AM EDT Office Visit [facility] [address] [place] [address] Kiel Shaffer MD Hemiparesis of left dominant side, unspecified hemiparesis etiology (CMS/HCC) (Primary Dx); Dizziness; Frequent falls; Cerebrovascular accident (CVA), unspecified mechanism (CMS/HCC); Bilateral impacted cerumen 08/11/2024 Travel 08/07/[address] [address] Kiel Shaffer MD Nurse Triage 08/07/[address] [address] Kiel Shaffer MD Cerebellar mass; Chronic intractable headache, unspecified headache type 08/06/2024 9:30 AM EDT Office Visit [address] [address] Lizzie Alfaro NP Hospital discharge follow-up (Primary Dx); Hemiparesis of left dominant side, unspecified hemiparesis etiology (CMS/HCC); Wheezing; Frequent falls; Nonintractable headache, unspecified chronicity pattern, unspecified headache type 08/06/[address] [address] Barbara Martinez [place] october recalls 08/06/2024 Travel 08/03/[address] [address] Kiel Shaffer MD FYI 08/03/[address] [address] Kiel Shaffer MD Referral 08/03/[address] [address] Kiel Shaffer MD FY 08/03/2024 Patient Outreach [address] [address] Kiel Shaffer MD 08/02/2024 Patient Outreach [facility] [address] [place] [address] Kiel Shaffer MD Transition Of Care (Tcm) (HDF scheduled. ) 08/02/[address] [address] Kiel Shaffer MD Hospital Follow-up from Last 3 Months Immunizations Immunization Administration Dates Next Due HepB-CpG 11/05/2022,10/08/2022 Influenza Injectable Quadriv alant Preservative Free IIV4 MDCK 11/05/2022 Influenza Whole 11/06/2010 Influenza injectable quadriv alent IIV4 with preservative 01/09/2016 Influenza injectable quadriv alent preservative free 11/13/2021,01/21/2021,01/07/2020,12/13,01/30/2018 Influenza, IIV3, injectable 02/03/2016,1 ,12/16/2013,02/23,11/02/2012,10/26/2011,01/13/2011 ,11/03/2010,11/21/2009 Influenza, seasonal, injecta ble, preservative free 11/29/2023 Novel [id number], all formulations 05/31/2009 Pneumococcal Conjugate PCV 20 [...] 21 11/01/2024 12:08 PM EDT Oxygen Saturation 95% 10/09/2024 2:08 PM EDT Inhaled Oxygen Concentration - - Weight 108 kg (237 lb 2 oz) 11/01/2024 12:08 PM EDT Height 160 cm (5' 3 ) 11/01/2024 12:08 PM EDT Body Mass Index 42 11/01/2024 12:08 PM EDT Plan of Treatment Upcoming Encounters Date Type Department Care Team (Late st Contact Info) Description 11/15/2024 11:30 AM EDT Clinical Support [facility] [address] [place] [phone] Opal Steiner, RN 11/27/2024 10:30 AM EDT Medication Management [facility] [address] [place] [phone] Katlyn Rodriguez, PharmD [address] [place] [address] Health Maintenance Due Date Last Done Comments [...] Screening 09/04/2025 09/04/2024, 09/05/19 25 Tobacco Screening 11/01/2025 11/01/2024 Colonoscopy 07/02/2027 07/01/2022 Colorectal Cancer Screening 07/02/2027 [...] 2-3 VIEWS Routine 11/01/2024 2:27 PM EDT XR HAND 3+ VIEWS RIGHT Routine 5:17 PM EDT XR WRIST 3+ VIEWS RIGHT Routine 10/07/19 25 5:12 PM EDT POCT GLYCATED HEMOGLOBIN, TOTAL Routine 10/02/2024 11:12 AM EDT Type 2 diabetes mellitus with other specified complication, with long-term current use of insulin ([facility]) POCT KEELEY-14 URINE DRUG SCREEN Routine 09/19/2024 9:09 AM EDT Long-term current use of opiate analgesic ME REMOVAL IMPACTED CERUMEN INSTRUMENTATION UNILAT Routine 09/05/2024 [...] VIEWS LEFT Routine 08/02/2024 7:02 AM EDT LIPID PANEL WITH REFLEX TO DIRECT LDL Routine 06/18/2024 8:18 AM EDT BI MAMMOGRAM SCREENING TOMOSYNTHESIS BILATERAL Routine 06/03/2023 8:45 AM EDT ALBUMIN, RANDOM URINE W/CREATININE Routine 05/26/2023 8:27 AM EDT Type 2 diabetes mellitus with other specified complication, with long-term current use of insulin ([facility]) Rib pain on left side COLONOSCOPY Routine 07/01/2022 4:37 PM EDT DIABETES EYE EXAM Routine 05/26/2022 from Last 3 Months or Most Recently Relevant to Health Maintenance Results * XR Shoulder 2+ Views Left (11/01/2024 3:06 PM EDT) Anatomical Region Laterality Modality Upper Extremities, Shoulder Left Radi ographic Imaging 11/01/2024 3:06 PM EDT Narrative 11/01/2024 3:21 PM EDT [address] [address] XRay Report Signed Patient: Sarita Puga MR#: [id number] 92 : 1965 Acct:[id number] Age/Sex: 59 / F ADM Date: 11/01/24 Loc: [facility] Attending Dr: Sarita Gonzalez MD Ordering Physician: Sarita Baker MD Date of Service: 11/01/24 Procedure(s): XR shoulder LT min 2V Accession Number(s): [id number] cc: Sarita Baker MD; Name,Kiel BAILEY Reason [...] Zohaib Murray MD 11/01/2024 03:18 PM EDT Dictated By: Zohaib Murray MD Signed By: <Electronically signed by Zohaib Murray MD in OV> 11/01/24 1518 DD/ 1506 TD/TT: 11/01/24 1508 Horse Trainer: Procedure Note Donotuseinterpreter, Image - 11/01/[address] [address] XRay Report Signed Patient: Sarita Puga MMR#: [id number] 92 : 1965Acct:[id number] Age/Sex: 59 / FADM Date: 11/01/24 Loc: [facility] Attending Dr: Sarita Gonzalez MD Ordering Physician: Sarita Baker MD Date of Service: 11/01/24 Procedure(s): XR shoulder LT min 2V Accession Number(s): [id number] cc: Sarita Baker MD; Name,Kiel BAILEY Reason [...] Zohaib Murray MD 11/01/2024 03:18 PM EDT Dictated By: Zohaib Murray MD Signed By: <Electronically signed by Zohaib Murray MD in OV> 11/01/24 1518 DD/ 1506 TD/TT: 11/01/24 1508 Horse Trainer: us Sarita Gonzalez MD IMG XR PROCEDURES Fin al Result * XR Lumbar Spine 2-3 Views (11/01/2024 2:27 PM EDT) Only the most recent of2 resultswithin the time period is included. Anatomical Region Laterality Modality Spine, L-spine Radiographic Diana ging 11/01/2024 2:27 PM EDT Narrative 11/01/2024 3:23 PM EDT [facility] [address] [place] [address] XRay Report Signed Patient: Sarita Puga MR#: [id number] 92 : 1965 Acct:[id number] Age/Sex: 59 / F ADM Date: 11/01/24 Loc: HO.HHCX Attending Dr: Sarita Gonzalez MD Ordering Physician: Sarita Baker MD Date of Service: 11/01/24 Procedure(s): XR lumbar spine 2-3V Accession Number(s): [id number] cc: Sarita Baker MD; Name,Kiel BAILEY Reason [...] 11/01/24 1520 DD/ 1427 TD/TT: 11/01/24 1508 Horse Trainer: Procedure Note Donotuseinterpreter, Image - 11/01/2024 [facility] [address] [place] [address] XRay Report Signed Patient: Sarita Puga MMR#: [id number] 92 : 1965Acct:[id number] Age/Sex: 59 / FADM Date: 11/01/24 Loc: WILMERCX Attending Dr: Sarita Gonzalez MD Ordering Physician: Sarita Baker MD Date of Service: 11/01/24 Procedure(s): XR lumbar spine 2-3V Accession Number(s): [id number] cc: Sarita Baker MD; Name,Kiel BAILEY Reason [...] 11/01/24 1520 DD/ 1427 TD/TT: 11/01/24 1508 Horse Trainer: Sarita Gonzalez MD IMG XR PROCEDURES Fin al Result * XR Hand 3+ Views Right (10/06/2024 5:17 PM EDT) Anatomical Region Laterality Modality Upper Extremities, Hand Right Radiogra phic Imaging 10/06/2024 5:17 PM EDT Narrative 10/06/2024 5:18 PM EDT [place] [address] XRay Report Signed Patient: Sarita Puga MR#: [id number] 92 : 1965 Acct:[id number] Age/Sex: 59 / F ADM Date: 10/06/24 Loc: HO.ED Attending Dr: Ordering Physician: Justina Perez NP Date of Service: 10/06/24 Procedure(s): XR hand RT min 3V Accession Number(s): [id number] cc: Kiel Shaffer MD; Justina Perez NP [...] in OV> 10/06/241717 DD/ 16 TD/TT: 10/06/241716 Horse Trainer: Procedure Note Donotuseinterpreter, Image - 10/06/2024 [place] [address] XRay Report Signed Patient: Sarita Puga MMR#: [id number] 92 : 1965Acct:[id number] Age/Sex: 59 / FADM Date: 10/06/24 Loc: HO.ED Attending Dr: Ordering Physician: Justina Perez NP Date of Service: 10/06/24 Procedure(s): XR hand RT min 3V Accession Number(s): [id number] cc: Name,Kiel BAILEY; Justina Perez NP CLINICAL [...] in OV> 10/06/241717 DD/ 16 TD/TT: 10/06/241716 Horse Trainer: us [facility] External Provider IMG XR PROCEDURES Edited Result - Final * XR Wrist 3+ Views Right (10/06/2024 5:12 PM EDT) Anatomical Region Laterality Modality Upper Extremities, Wrist Right Radiogr aphic Imaging 10/06/2024 5:12 PM EDT Narrative 10/06/2024 5:14 PM EDT [address] [address] XRay Report Signed Patient: Sarita Puga MR#: [id number] 92 : 1965 Acct:[id number] Age/Sex: 59 / F ADM Date: 10/06/24 Loc: HO.ED Attending Dr: Ordering Physician: Justina Perez NP Date of Service: 10/06/24 Procedure(s): XR wrist RT min 3V Accession Number(s): [id number] cc: Name,Kiel BAILEY; Justina Perez NP CLINICAL [...] in OV> 10/06/241712 DD/ 11 TD/TT: 10/06/241711 Horse Trainer: Procedure Note Donotuseinterpreter, Image - 10/06/[address] [place] [address] XRay Report Signed Patient: Sarita Puga [facility]#: [id number] 92 : 1965Acct:[id number] Age/Sex: 59 / FADM Date: 10/06/24 Loc: HO.ED Attending Dr: Ordering Physician: Justina Perez NP Date of Service: 10/06/24 Procedure(s): XR wrist RT min 3V Accession Number(s): [id number] cc: Deena,Kiel BAILEY; Justina Perez NP CLINICAL HISTORY: fall, [...] in OV> 10/06/241712 DD/ 11 TD/TT: 10/06/241711 Horse Trainer: [facility] External Provider IMG XR PROCEDURES Edited Result - Final * (ABNORMAL) POCT HGB A1C (10/02/2024 11:12 AM EDT) Pathologist [facility] Hemoglobin A1C 7.5(A) 4.0 - 5.7 % [...] - 09/19/2024 9:09 AM EDT UTOX cup Lot#[id number] Exp. 11/27/25 Internal Pass Control Kiel Shaffer MD POINT OF CARE TEST ENTER/EDIT OR DERABLES Final Result * ME REMOVAL IMPACTED CERUMEN INSTRUMENTATION UNILAT (09/05/2024 11:12 AM EDT) Sravanthi Ramirez MD - 09/05/2024 11:12 AM EDT Sravanthi Robbins MD 09/10/2024 10:23 AM Ear Cerumen Removal Date/Time: 09/05/2024 11:12 AM Performed by: Madalyn Garcia RN Authorized by: Sravanthi Robbins MD Consent: Consent obtained: Verbal Consent given by: Patient Risks discussed: Infection, pain, incomplete removal and dizziness Alternatives discussed: No treatment and delayed treatment Liberty protocol: Patient identity confirmed: Verbally with patient [...] PM EDT Narrative 08/22/2024 12:12 PM EDT [place] [address] Ultrasound Report Signed Patient: Sarita Puga MR#: [id number] 92 : 1965 Acct:[id number] Age/Sex: 59 / F ADM Date: 08/21/24 Loc: HO.US Attending Dr: Cherelle ROMO Ordering Physician: Cherelle Trujillo Date of Service: 08/21/24 Procedure(s): US renal BI Accession Number(s): [id number] cc: Cherelle Trujillo; Name,Kiel BAILEY CLINICAL HISTORY: [...] 08/22/24 1212 DD/ 1211 TD/TT: 08/22/24 1211 Horse Trainer: Procedure Note Donotuseinterpreter, Image - 08/22/2024 [place] [address] Ultrasound Report Signed Patient: Sarita Puga MMR#: [id number] 92 : 1965Acct:[id number] Age/Sex: 59 / FADM Date: 08/21/24 Loc: HO.US Attending Dr: Cherelle ROMO Ordering Physician: Cherelle Trujillo Date of Service: 08/21/24 Procedure(s): US renal BI Accession Number(s): [id number] cc: Cherelle Trujillo; Name,Kiel BAILEY CLINICAL HISTORY: [...] 08/22/24 1212 DD/ 1211 TD/TT: 08/22/24 1211 Horse Trainer: [facility] External Provider IMG US PROCEDURES Final [...] AM EDT Narrative 08/17/2024 11:32 AM EDT [address] [address] [address] Scan Report Signed Patient: Sarita Puga MR#: [id number] 92 : 1965 Acct:[id number] Age/Sex: 58 / F ADM Date: 08/17/24 Loc: HO.ED Attending Dr: Ordering Physician: Natalie Martell Date of Service: 08/17/24 Procedure(s): CT head/brain wo IV con Accession Number(s): [id number] cc: Natalie Martell; Name,Kiel BAILEY Report Number: [id number]: Total DLP = 756.00 mGy-cm EXAMINATION: CT [...] 08/17/24 1130 DD/ 1010 TD/TT: 08/17/24 1120 Horse Trainer: Procedure Note Donotuseinterpreter, Image - 08/17/[address] [place] [address] CT Scan Report Signed Patient: Sarita Puga MMR#: [id number] 92 : 1965Acct:[id number] Age/Sex: 58 / FADM Date: 08/17/24 Loc: HO.ED Attending Dr: Ordering Physician: Natalie Martell Date of Service: 08/17/24 Procedure(s): CT head/brain wo IV con Accession Number(s): [id number] cc: Natalie Martell; Name,Kiel BIALEY Report Number: [id number]: Total DLP = 756.00 mGy-cm EXAMINATION: CT [...] 08/17/24 1130 DD/ 1010 TD/TT: 08/17/24 1120 Horse Trainer: us [facility] External Provider IMG CT PROCEDURES Final Result * XR Femur 2+ Views Right (08/17/2024 10:02 AM EDT) Anatomical Region Laterality Modality Lower Extremities, Femur Right Radiogr aphic Imaging 08/17/2024 10:0 2 AM EDT Narrative 08/17/2024 11:23 AM EDT [address] [address] XRay Report Signed Patient: Sarita Puga MR#: [id number] 92 : 1965 Acct:[id number] Age/Sex: 58 / F ADM Date: 08/17/24 Loc: HO.ED Attending Dr: Ordering Physician: Natalie Martell Date of Service: 08/17/24 Procedure(s): XR femur RT 2V Accession Number(s): [id number] cc: Natalie Martell; Name,Kiel BAILEY EXAMINATION: XR [...] 08/17/24 1120 DD/ 1002 TD/TT: 08/17/24 1113 Horse Trainer: Procedure Note Donotuseinterpreter, Image - 08/17/[address] [address] XRay Report Signed Patient: Sarita Puga MMR#: [id number] 92 : 1965Acct:[id number] Age/Sex: 58 / FADM Date: 08/17/24 Loc: HO.ED Attending Dr: Ordering Physician: Natalie Martell Date of Service: 08/17/24 Procedure(s): XR femur RT 2V Accession Number(s): [id number] cc: Natalie Martell; Name,Kiel BAILEY EXAMINATION: XR [...] 08/17/24 1120 DD/ 1002 TD/TT: 08/17/24 1113 Horse Trainer: us [facility] External Provider IMG XR PROCEDURES Final Result * XR Chest 2 Views (08/17/2024 9:56 AM EDT) Anatomical Region Laterality Modality Chest Radiographic Diana ging 08/17/2024 9:56 AM EDT Narrative 08/17/2024 11:20 AM EDT [address] [address] XRay Report Signed Patient: Sarita Puga MR#: [id number] 92 : 1965 Acct:[id number] Age/Sex: 58 / F ADM Date: 08/17/24 Loc: HO.ED Attending Dr: Ordering Physician: Natalie Martell Date of Service: 08/17/24 Procedure(s): XR chest 2V Accession Number(s): [id number] cc: Natalie Martell; Name,Kiel BAILEY EXAMINATION: XR [...] 08/17/24 1117 DD/ 0956 TD/TT: 08/17/24 1113 Horse Trainer: Procedure Note Donotuseinterpreter, Image - 08/17/2024 [place] [address] XRay Report Signed Patient: Sarita Puga [facility]#: [id number] 92 : 1965Acct:[id number] Age/Sex: 58 / FADM Date: 08/17/24 Loc: HO.ED Attending Dr: Ordering Physician: Natalie Martell Date of Service: 08/17/24 Procedure(s): XR chest 2V Accession Number(s): [id number] cc: Natalie Martell; NameKiel MD EXAMINATION: XR CHEST 2 VIEWS HISTORY: [...] 08/17/24 1117 DD/ 0956 TD/TT: 08/17/24 1113 Horse Trainer: [facility] External Provider IMG XR PROCEDURES Final Result * CT Cervical Spine w/o Contrast (08/02/2024 7:26 AM EDT) Anatomical Region Laterality Modality Spine, C-spine Computed Tomogra phy 08/02/2024 7:26 AM EDT Narrative 08/02/2024 7:28 AM EDT [place] [address] CT Scan Report Signed Patient: Sarita Puga MR#: [id number] 92 : 1965 Acct:[id number] Age/Sex: 58 / F ADM Date: 07/30/24 Loc: [facility] 471-[address]: Alexandra SEGURA Ordering Physician: Miguel Dodge MD Date of Service: 08/02/24 Procedure(s): CT cervical spine wo IV con Accession Number(s): [id number] cc: Kiel Shaffer MD; Miguel Dodge MD Report Number: [id number]: Total DLP = 543.00 mGy-cm CLINICAL HISTORY: [...] in OV> 08/02/24726 DD/ 5 TD/TT: 08/02/24725 Horse Trainer: Procedure Note Abdifatahter, Image - 08/02/[address] [place] [address] [address] Scan Report Signed Patient: Sariat Puga [facility]#: [id number] 92 : 1965Acct:[id number] Age/Sex: 58 / FADM Date: 07/30/24 Loc: [facility] 471-[address]: Alexandra SEGURA Ordering Physician: Miguel Dodge MD Date of Service: 08/02/24 Procedure(s): CT cervical spine wo IV con Accession Number(s): [id number] cc: Name,Kiel BAILEY; Miguel Dodge MD Report Number: [id number]: Total DLP = 543.00 mGy-cm CLINICAL HISTORY: [...] in OV> 08/02/24726 DD/ 5 TD/TT: 08/02/24725 Horse Trainer: [facility] External Provider IMG CT PROCEDURES Edited Result - Final * XR Hip 2 or 3 Views Left (08/02/2024 7:02 AM EDT) Anatomical Region Laterality Modality Lower Extremities, Hip Left Radiograp hic Imaging 08/02/2024 7:02 AM EDT Narrative 08/02/2024 7:04 AM EDT [address] [address] XRay Report Signed Patient: Sarita Puga MR#: [id number] 92 : 1965 Acct:[id number] Age/Sex: 58 / F ADM Date: 07/30/24 Loc: [facility] 471-[address]: Nikki Ovalle INJECTION MOLDER Ordering Physician: Miguel Dodge MD Date of Service: 08/02/24 Procedure(s): XR hip LT min 2V Accession Number(s): [id number] cc: Deena,Kiel BAILEY; Miguel Dodge MD CLINICAL [...] 08/02/24 0704 DD/ 0702 TD/TT: 08/02/24 0702 Horse Trainer: Procedure Note Donotuseinterpreter, Image - 08/02/[address] [address] XRay Report Signed Patient: Sarita Puga MMR#: [id number] 92 : 1965Acct:[id number] Age/Sex: 58 / FADM Date: 07/30/24 Loc: [facility] 471-[address]: Nikki Ovalle NP Ordering Physician: Miguel Dodge MD Date of Service: 08/02/24 Procedure(s): XR hip LT min 2V Accession Number(s): [id number] cc: Kiel Shaffer MD; Miguel Dodge MD [...] in OV> 08/02/24703 DD/ 1 TD/TT: 08/02/24701 Horse Trainer: [facility] External Provider IMG XR PROCEDURES Edited Result - Final * (ABNORMAL) Lipid Panel with Reflex to Direct LDL (06/18/2024 8:18 AM EDT) Triglycerides 156(H) <150 mg/dL [facility] Comment:Desirable Triglyceri de: less than 150 mg/dLBorderline High Triglyceride 150-199 mg/dLHigh Triglyceride: 200-499 mg/dLVery High Triglyceride: greater than or equal to 5OO mg/dL Cholesterol 185 <200 mg/dL [facility] Comment:Desirable Cholestero l: less than 200 mg/dLBorderline High Cholesterol: 200-239 mg/dLHigh Cholesterol: greater than 239 mg/dL LDL Cholesterol Calculated 109(H) <100 mg/dL [facility] Comment:Desirable LDL: less than 100 mg/dLNear Optimal/Above Optimal LDL: 110- 129 mg/dLBorderline High LDL: 130-159 mg/dLHigh LDL: 160-189 mg/dLVery High LDL: greater than or equal to 190 mg/dL HDL Cholesterol 45 >40 mg/dL [facility] Comment:Desirable HDL: great er than 40 mg/dL Note: This HDL assay may give artificially low results in patients with liver disease. 06/18/2024 8:18 AM EDT 06/18/2024 11:00 AM EDT Kiel Shaffer MD LAB BLOOD ORDERABLES Final Resul t [facility] [address] [place] [address] [phone] * BI Mammogram Screening Tomosynthesis Bilateral (06/03/2023 8:45 AM EDT) Anatomical Region Laterality Modality Breast Bilateral Mammography 06/03/2023 8:45 AM EDT Narrative 06/30/2023 10:24 PM EDT [address] [place] [address] Mammography Report Signed Patient: Sarita Puga MR#: [id number] 92 : 1965 Acct:[id number] Age/Sex: 57 / F ADM Date: 06/03/23 Loc: HO.MAMMO Attending Dr: Kiel Shaffer MD Ordering Physician: Kiel Shaffer MD Results: 1Negative Date of Service: 06/03/23 Follow Up: 1 Year From Orig inal Mammogram Procedure(s): MM tomosynthesis screening BI Accession Number(s): [id number] cc: Kiel Shaffer MD EXAMINATION: MM SCREENING [...] MD in OV> 06/30/230 DD/ 0845 TD/TT: Horse Trainer: Procedure Note Donotuseinterpreter, Image - 06/30/[address] [place] [address] Mammography Report Signed Patient: Sarita Puga MMR#: [id number] 92 : 1965Acct:[id number] Age/Sex: 57 / FADM Date: 06/03/23 Loc: MAMMO Attending Dr: Kiel Shaffer MD Ordering Physician: Kiel Shafferesults: 1Negative Date of Service: 06/03/23Follow Up: 1 Year From Orig inal Mammogram Procedure(s): MM tomosynthesis screening BI Accession Number(s): [id number] cc: Kiel Shaffer MD EXAMINATION: MM SCREENING [...] in OV> 06/30/23 2220 DD/ 0845 TD/TT: Horse Trainer: Kiel Shaffer MD IM BI PROCEDURES Edited Result - Final * Albumin, Random Urine W/Creatinine (05/26/2023 8:27 AM EDT) Creatinine, Urine 185.88 mg/dL [facility] Microalbumin Urine 23.0 mg/L [facility] Microalbum Creatinine Ratio Ur 12.3 <30 ug/mg cr [facility] Comment:Albumin/Creatinine R atio Reference Ranges: Normal: < 30 ug/mg creatinine Microalbuminuria: 30 - 300 ug/mg creatinineClinical Albuminuria: > 300 ug/mg creatinine Urine (Urine, Random) 05/26/2023 8:27 AM EDT 05/26/2023 11:19 AM EDT us Kiel Shaffer MD LAB URINE ORDERABLES Final Resul t Performing Organization Address City/State/[facility] Co de Phone Number [facility] [address] [place] [phone] * Colonoscopy (07/01/2022 4:37 PM EDT) Colonoscopy Normal Normal Narrative Em[place] Devine - 07/01/2022 4:37 PM EDT Recommended 5 year follow up ([facility]) [place] Provider HEALTH MAINTENANCE Final Result * Diabetes Eye Exam (05/26/2022) Eye Exam Normal Normal us Kiel Shaffer MD HEALTH MAINTENANCE Final Result from Last 3 Months or Most Recently Relevant to Health Maintenance Insurance [facility] [facility] [address] [place] [address] [facility] [address] [place], [place] [address]HEALTH C3 [employer] [address] [place] [address] [place] Care Teams Kickboxing Instructor Relationship Specialty Start Date End Date Name, MD Kiel [address] [place], [place] PCP - General Family Medicine 07/15/15 Katlyn Rodriguez PharmD [address] [place] [address] Pharmacist Internal Medicine 10/08/22 Ania [place] 08/20/24 Opal Leyva Registered Nurse 10/29/24 Marta Ovalle Zigzag StitcherEnvironmental Construction Engineer 05/25/23
--- OUTSIDE RECORDS SUMMARY | 2024-11-01 17:35 | XMS_ITS | Encounter Summary ---
Author Organization [employer] Address [address] [facility] [address]t [place] [address] Care Team Providers Care Strategic Marketing Manager Name Role Phone Name, Kiel BAILEY Primary Care Provider [phone] Katlyn Rodriguez PharmD Unavailable [phone] Nehal Ann RN Unavailable [phone] Ania [place] Unavailable Opal Leyva Unavailable Reason for Visit * Reason Onset Date Comments Durable Medical Equipment 01/24/2023 Encounter Details Date Type Department Care Team (Late st Contact Info) Description 01/24/2023 Telephone [facility] [address] [place], [place] [phone] Name, MD Kiel [address] [place], [place] [phone] Durable Medical Equipment Social History Tobacco Use [...] to errol. Any questions, contact pt at [phone] documented in this encounter Plan of Treatment Upcoming Encounters Date Type Department Care Team (Late st Contact Info) Description 11/15/2024 11:30 AM EDT Clinical Support [address] [address] Opal Steiner RN 11/27/2024 10:30 AM EDT Medication Management [facility] [address] [place] [address] Puia, Katlyn, PharmD [address] [place] [address] documented as of this encounter Goals Goal [...] as of this encounter Care Teams Strategic Marketing Manager Relationship Specialty Start Date End Date Name, MD Kiel [address] [place] [address] PCP - General Family Medicine 07/15/15 Katlyn Rodriguez, PharmD [address] [place] [address] Pharmacist Internal Medicine 10/08/22 Nehal Ann RN [address] [place] [phone] Registered Nurse Family Medicine 08/20/24 10/29/24 Ania [place] 08/20/24 Opal Leyva Registered Nurse 10/29/24 Marta Ovalle Vertical Boring Mill OperatorRevenue Stamp Cutter 05/25/23 documented as of this encounter
--- OUTSIDE RECORDS SUMMARY | 2024-11-01 17:35 | XMS_ITS | Encounter Summary ---
Author Organization [employer] Address [address] [place] [address] 7t [place] [address] Care Team Providers Care Dairy Farm Worker Name Role Phone Name, Kiel BAILEY Primary Care Provider Katlyn Rodriguez PharmD Unavailable [phone] Nehal Ann RN Unavailable [phone] Ania [place] Unavailable Opal Leyva Unavailable [phone] Encounter Details Date Type Department Care Team (Late st Contact Info) Description 07/01/2022 Abstract [facility] [address] [place], [place] [phone] Name, MD Kiel [address] [place], [place] [phone] Social History Tobacco Use Types Packs/Day Years [...] Description 11/15/2024 11:30 AM EDT Clinical Support [address] [address] Opal Steiner, RN 11/27/2024 10:30 AM EDT Medication Management [address] [address] Katlyn Rodriguez PharmD [address] [place] [address] documented as of this encounter Visit Diagnoses Not on filedocumented in this encounter Care Teams Dairy Farm Worker Relationship Specialty Start Date End Date Name, MD Kiel [address] [place] [address] PCP - General Family Medicine 07/15/15 Katlyn Rodriguez, PharmD [address] [place] [address] Pharmacist Internal Medicine 10/08/22 Nehal Ann RN [address] [place] [phone] Registered Nurse Family Medicine 08/20/24 10/29/24 Ania [place] 08/20/24 Opal Leyva Registered Nurse 10/29/24 Marta Ovalle Dental Sales RepresentativeBobcat Operator 05/25/23 documented as of this encounter
--- OUTSIDE RECORDS SUMMARY | 2024-11-01 17:35 | XMS_ITS | Encounter Summary ---
Author Organization [employer] Address [address] [facility] [address]t [place] [address] Care Team Providers Care Battery Container Tester Aluminum Name Role Phone Name, Kiel BAILEY Primary Care Provider [phone] Katlyn Rodriguez PharmD Unavailable [phone] Nehal Ann RN Unavailable [phone] Ania [place] Unavailable Opal Leyva Unavailable [phone] Reason for Visit * Reason Comments Med Refill Encounter Details Date Type Department Care Team (Late st Contact Info) Description 06/08/2024 Refill [facility] [address] [place], [place] [phone] Name, MD Kiel [address] [place] [address] Chronic pain syndrome Social History Tobacco Use [...] the past 12 months, has t he [employer], gas, oil or water [employer] threatened to shut off services in your [...] Description 11/15/2024 11:30 AM EDT Clinical Support [facility] [address] [place] [address] Opal Steiner RN 11/27/2024 10:30 AM EDT Medication Management [facility] [address] [place] [address] PuiaReidKatlyn, PharmD [address] [place] [address] documented as of this encounter Goals Goal [...] documented as of this encounter Care Teams Battery Container Tester Aluminum Relationship Specialty Start Date End Date Name, MD Kiel [address] [place], [place] [phone] PCP - General Family Medicine 07/15/15 Katlyn Rodriguez, PharmD [address] [place] [address] Pharmacist Internal Medicine 10/08/22 Nehal Ann RN [address] [place] [address] Registered Nurse Family Medicine 08/20/24 10/29/24 Ania [place] 08/20/24 Opal Leyva Registered Nurse 10/29/24 Marta Ovalle Polysomnographic TechnicianWarehouse Man 05/25/23 documented as of this encounter
--- OUTSIDE RECORDS SUMMARY | 2024-11-01 17:35 | XMS_ITS | Encounter Summary ---
Author Organization [facility] Address [address] [facility] [address] [place] [address] Phone Care Team Providers Care Inspector Assemblies And Installations Name Role Phone Unavailable Primary Care Provider Unavailabl e Encounter Details Date Type Department Care Team (Latest Contact Info) Description 01/04/2020 Ancillary Orders [facility] [address] [place] [address] [place] [address] Bright Jesus, DO [address] [place] [phone] Chest pain, unspecified type Social History Tobacco [...] It is not the complete legal health record.[facility]
--- OUTSIDE RECORDS SUMMARY | 2024-11-01 17:35 | XMS_ITS | Encounter Summary ---
Author Organization [employer] Address [address] [place] [address] 7t [place] [address] Care Team Providers Care Clinical Staff Anesthesiologist Name Role Phone Name, Kiel BAILEY Primary Care Provider Katlyn Rodriguez PharmD Unavailable [phone] Nehal Ann RN Unavailable [phone] Ania [place] Unavailable Opal Leyva Unavailable [phone] Reason for Visit * Reason Onset Date Comments Appointment Request 02/29/2024 Encounter Details Date Type Department Care Team ([facility] st Contact Info) Description 02/29/2024 Telephone [facility] [address] [place], [place] [phone] Name, MD Kiel [address] [place], [place] [phone] Appointment Request Social History Tobacco Use Types [...] the past 12 months, has t he [employer], gas, oil or water [employer] threatened to shut off services in your [...] [place] so you will need an lorry weigher. documented in this encounter Plan of Treatment Upcoming Encounters Date Type Department Care Team (Late st Contact Info) Description 11/15/2024 11:30 AM EDT Clinical Support [facility] [address] [place] [address] Opal Steiner, MARINA 11/27/2024 10:30 AM EDT Medication Management [facility] [address] [place] [address] Katlyn Rodriguez, Bin [address] [place] [address] documented as of this encounter Goals Goal [...] documented as of this encounter Care Teams Clinical Staff Anesthesiologist Relationship Specialty Start Date End Date Name, MD Kiel [address] [place] [address] PCP - General Family Medicine 07/15/15 Puia, Katlyn, PharmD [address] [place] [address] Pharmacist Internal Medicine 10/08/22 Nehal Ann RN [address] [place] [address] Registered Nurse Family Medicine 08/20/24 10/29/24 Ania [place] 08/20/24 Opal Leyva Registered Nurse 10/29/24 Marta Ovalle Auto Suspension And Steering MechanicStrand And Binder Controller 05/25/23 documented as of this encounter
--- OUTSIDE RECORDS SUMMARY | 2024-11-01 17:35 | XMS_ITS | Encounter Summary ---
Author Organization [employer] Address [address] [employer] 7t [place] [address] Care Team Providers Care Equal Opportunity Representative Name Role Phone Name, Kiel BAILEY Primary Care Provider Katlyn Rodriguez PharmD Unavailable [phone] Nehal Ann RN Unavailable [phone] Ania Spencer Unavailable Opal Leyva Unavailable [phone] Reason for Visit * Reason Onset Date Comments Durable Medical Equipment 12/06/2022 Encounter Details Date Type Department Care Team (Late st Contact Info) Description 12/06/2022 Telephone [facility] MEDICINE [address] [place], [place] [phone] Name, MD Kiel [address] [place], [place] [phone] Durable Medical Equipment Social History Tobacco Use [...] to message above. Please contact pt at [phone] (Mongolian) * Telephone Encounter - Jean-Paul Finch - 12/06/2022 3:29 PM EDT Tc from pt requesting status on some bed absorbant pads to not stain bed. Please contact pt at [phone] Mongolian Speaker documented in this encounter Plan of Treatment Upcoming Encounters Date Type Department Care Team (Late st Contact Info) Description 11/15/2024 11:30 AM EDT Clinical Support [address] [address] Opal Steiner RN 11/27/2024 10:30 AM EDT Medication Management [facility] MEDICINE [address] [place] [address] PuiaKatlyn, PharmD [address] [place] [address] documented as of this encounter Goals Goal [...] documented as of this encounter Care Teams Equal Opportunity Representative Relationship Specialty Start Date End Date Name, MD Kiel [address] [place] [address] PCP - General Family Medicine 07/15/15 Puia, Katlyn, PharmD [address] [place] [address] Pharmacist Internal Medicine 10/08/22 Nehal Ann RN [address] [place] [address] Registered Nurse Family Medicine 08/20/24 10/29/24 Ania Spencer 08/20/24 Opal Leyva Registered Nurse 10/29/24 Marta Ovalle International ManagerCabin Cleaning Supervisor 05/25/23 documented as of this encounter
--- OUTSIDE RECORDS SUMMARY | 2024-11-01 17:35 | XMS_ITS | Encounter Summary ---
Author Organization [employer] Address [address] [place] [address] 7t [place] [address] Care Team Providers Care National Van Owner Operator Name Role Phone Name, Kiel BAILEY Primary Care Provider Katlyn Rodriguez PharmD Unavailable Nehal Ann RN Unavailable Ania Spencer Unavailable Opal Leyva Unavailable [phone] Encounter Details Date Type Department Care Team (Late Contact Info) Description 10/29/2022 Abstract [facility] MEDICINE 230 [place], [place] [phone] Name, MD Kiel 230 [place], [place] [phone] Social History Tobacco Use Types Packs/Day Years [...] Department Care Team (Late Contact Info) Description 11/15/2024 11:30 AM EDT Clinical Support [address] [address] Opal Steiner, MARINA 11/27/2024 10:30 AM EDT Medication Management [address] [address] PuKatlyn albert, PharmD [address] [place], [place] documented as of this encounter Goals Goal Patient Goal Type Associated Problems Recent Progress Patient-Stated? Author Hemoglobin A1c < 7 Result Component 7.5( 11:12 AM EDT) No PuiaReidKatlyn, PharmD Record your blood sugar as directed Result Component No PuReid albertyssa, PharmD documented as of this encounter Procedures Procedure Name Priority Date/Time Associated Diagnosis Comments DIABETES EYE EXAM Routine 05/26/2022 documented in this encounter Results * Diabetes Eye Exam (05/26/2022) [facility] Signature Eye Exam Normal Normal Kiel Shaffer MD HEALTH MAINTENANCE Final Result documented in this encounter Visit Diagnoses Not on filedocumented in this encounter Additional Health Concerns Assessment Noted Time PHQ-9 Depression Total Score: 7 07/15/19 23 2:39 PM EDT documented as of this encounter Care Teams National Van Owner Operator Relationship Specialty Start Date End Date Name, MD Kiel [address] [place] [address] PCP - General Family Medicine 07/15/15 Puia, Katlyn, PharmD 230 [place] [address] Pharmacist Internal Medicine 10/08/22 Nehal Ann, MARINA [address] [place] [address] Registered Nurse Family Medicine 08/20/24 10/29/24 Ania Spencer 08/20/24 Opal Leyva Registered Nurse 10/29/24 Marta Ovalle Aerospace Engineer Officer ArmamentArm Rest Builder 05/25/23 documented as of this encounter
--- OUTSIDE RECORDS SUMMARY | 2024-11-01 17:35 | XMS_ITS | Encounter Summary ---
Author Organization [employer] Address [address] [place] [address] 7t [place] [address] Care Team Providers Care Emr Analyst Name Role Phone Name, Kiel BAILEY Primary Care Provider [phone] Katlyn Rodriguez PharmD Unavailable [phone] Nehal Ann RN Unavailable [phone] Ania Spencer Unavailable Opal Leyva Unavailable [phone] Encounter Details Date Type Department Care Team (Late st Contact Info) Description 07/01/2022 Abstract [facility] MEDICINE 230 [place], [place] [phone] Name, MD Kiel 230 [place], [place] [phone] Social History Tobacco Use Types Packs/Day Years [...] Description 11/15/2024 11:30 AM EDT Clinical Support [address] [address] Opal Steiner RN 11/27/2024 10:30 AM EDT Medication Management [address] [address] Katlyn Rodriguez PharmD [address] [place] [address] documented as of this encounter Procedures Procedure Name Priority Date/Time Associated Diagnosis Comments COLONOSCOPY Routine 07/01/2022 4:37 PM EDT documented in this encounter Results * Colonoscopy (07/01/2022 4:37 PM EDT) Colonoscopy Normal Normal Narrative Emely Devine - 07/01/2022 4:37 PM EDT Recommended 5 year follow up ([facility] Historical Provider HEALTH MAINTENANCE Final Result documented in this encounter Visit Diagnoses Not on filedocumented in this encounter Care Teams Emr Analyst Relationship Specialty Start Date End Date Name, MD Kiel [address] [place] [address] PCP - General Family Medicine 07/15/15 Katlyn Rodriguez, PharmD [address] [place] [address] Pharmacist Internal Medicine 10/08/22 Nehal Ann, MARINA [address] [place] [address] Registered Nurse Family Medicine 08/20/24 10/29/24 Ania Spencer 08/20/24 Opal Leyva Registered Nurse 10/29/24 Marta Ovalle Radio PersonalityRespiratory Manager 05/25/23 documented as of this encounter
--- OUTSIDE RECORDS SUMMARY | 2024-11-01 17:35 | XMS_ITS | Encounter Summary ---
Author Organization [employer] Address [address] [place] [address] 7t [place] [address] Care Team Providers Care Accounts Payable Technician Name Role Phone Name, Kiel BAILEY Primary Care Provider Katlyn Rodriguez PharmD Unavailable [phone] Nehal Ann RN Unavailable [phone] Ania Spencer Unavailable Opal Leyva Unavailable [phone] Reason for Visit * Reason Onset Date Comments FYI 08/03/2024 Encounter Details Date Type Department Care Team (Late st Contact Info) Description 08/03/2024 Telephone [facility] MEDICINE 230 [place], [place] [phone] Name, MD Kiel 230 [place], [place] [phone] FYI Social History Tobacco Use Types Packs/Day [...] will be admitting pt for OT and snf. If any questions you can contact pt at [phone], documented in this encounter Plan of Treatment Upcoming Encounters Date Type Department Care Team (Late st Contact Info) Description 11/15/2024 11:30 AM EDT Clinical Support [address] [address] Opal Steiner, MARINA 11/27/2024 10:30 AM EDT Medication Management [facility] MEDICINE 230 [place] [address] Puia, Katlyn, PharmD 230 [place] [address] documented as of this encounter Goals Goal [...] documented as of this encounter Care Teams Accounts Payable Technician Relationship Specialty Start Date End Date Name, MD Kiel 230 [place] [address] PCP - General Family Medicine 07/15/15 Puia, Katlyn, PharmD [address] [place] [address] Pharmacist Internal Medicine 10/08/22 Nehal Ann, MARINA [address] [place] [address] Registered Nurse Family Medicine 08/20/24 10/29/24 Ania Spencer 08/20/24 Opal Leyva Registered Nurse 10/29/24 Marta Ovalle Shrimp Peeling Machine OperatorHolistic Health Practitioner 05/25/23 documented as of this encounter
--- OUTSIDE RECORDS SUMMARY | 2024-11-01 17:35 | XMS_ITS ---
Author Organization [employer] Address [address] [place] [address] 7t [place] [address] Care Team Providers Care Director Community Health Nursing Name Role Phone Name, Kiel BAILEY Primary Care Provider [phone] Katlyn Rodriguez PharmD Unavailable Ania Spencer Unavailable Opal Leyva Unavailable [phone] CHW Complex Status:Outreach In Progress (Enrolling) Start date:08/20/2024 Enrollment reason:ADT Feed Overview ED- Pt went to [facility] ED on 08/17/24. Case Team Name Relationship Phone Ania Spencer(Responsible Staff) [phone] Continued Care and Services Coordination
--- OUTSIDE RECORDS SUMMARY | 2024-11-01 17:35 | XMS_ITS | Encounter Summary ---
Author Organization [employer] Address [address] [place] [address] 7t [place] [address] Care Team Providers Care Storage Facility Rental Clerk Name Role Phone Name, Kiel BAILEY Primary Care Provider [phone] Katlyn Rodriguez PharmD Unavailable Nehal Ann RN Unavailable [phone] Ania Spencer Unavailable Opal Leyva Unavailable [phone] Reason for Visit * Reason Comments Med Refill Encounter Details Date Type Department Care Team (Late st Contact Info) Description 04/25/2022 Refill [facility] MEDICINE 230 [place], [place] [phone] Name, MD Kiel [address] [place], [place] [phone] Diabetes mellitus type 2 in obese (CMS/HCC) [...] Description 11/15/2024 11:30 AM EDT Clinical Support [address] [address] Opal Steiner, MARINA 11/27/2024 10:30 AM EDT Medication Management [address] [address] Katlyn Rodriguez PharmD [address] [place] [address] documented as of this encounter Visit Diagnoses Diagnosis Diabetes mellitus type 2 in obese- Primary Type II or unspecified type diabetes mellitus without mention of complication, not stated as uncontrolled documented in this encounter Care Teams Storage Facility Rental Clerk Relationship Specialty Start Date End Date Name, MD Kiel [address] [place] [address] PCP - General Family Medicine 07/15/15 Katlyn Rodriguez, PharmD [address] [place] [address] Pharmacist Internal Medicine 10/08/22 Nehal Ann, MARINA [address] [place] [address] Registered Nurse Family Medicine 08/20/24 10/29/24 Ania Spencer 08/20/24 Opal Leyva Registered Nurse 10/29/24 Marta Ovalle Cast Iron DipperFoam Cutting Supervisor 05/25/23 documented as of this encounter
--- OUTSIDE RECORDS SUMMARY | 2024-11-01 17:35 | XMS_ITS | Encounter Summary ---
Author Organization [employer] Address [address] [facility] 7t [place] [address] Care Team Providers Care Resource Paraprofessional Name Role Phone Name, Kiel BAILEY Primary Care Provider Katlyn Rodriguez PharmD Unavailable Nehal Ann RN Unavailable [phone] Ania Spencer Unavailable Opal Leyva Unavailable [phone] Reason for Visit * Reason Comments Med Refill Encounter Details Date Type Department Care Team (Late st Contact Info) Description 04/15/[address] [facility] MEDICINE 230 [place], [place] [phone] Yaneth Restrepo FNP 230 [place] [address] Diabetes mellitus type 2 in obese (CMS/HCC) [...] Description 11/15/2024 11:30 AM EDT Clinical Support [facility] MEDICINE [address] [place] [address] Opal Steiner RN 11/27/2024 10:30 AM EDT Medication Management [facility] MEDICINE [address] [place] [address] PuiaKatlyn, PharmD [address] [place] [address] documented as of this encounter Goals Goal [...] documented as of this encounter Care Teams Resource Paraprofessional Relationship Specialty Start Date End Date Name, MD Kiel 230 [place] [address] PCP - General Family Medicine 07/15/15 Katlyn Rodriguez, Bin [address] [place] [address] Pharmacist Internal Medicine 10/08/22 Nehal Ann RN [address] [place] [address] Registered Nurse Family Medicine 08/20/24 10/29/24 Ania Sepncer 08/20/24 Opal Leyva Registered Nurse 10/29/24 Marta Ovalle Senior Quality Methods SpecialistRefractory Repairer 05/25/23 documented as of this encounter
--- OUTSIDE RECORDS SUMMARY | 2024-11-01 17:35 | XMS_ITS | Encounter Summary ---
Author Organization [employer] Address [address] [facility] 7t [place] [address] Care Team Providers Care Criminal Lawyer Name Role Phone Name, Kiel BAILEY Primary Care Provider [phone] Katlyn Rodriguez PharmD Unavailable [phone] Nehal Ann RN Unavailable Ania Spencer Unavailable Opal Leyva Unavailable [phone] Reason for Visit * Reason Onset Date Comments Reschedule 08/01/2023 Encounter Details Date Type Department Care Team (Late st Contact Info) Description 08/01/2023 Telephone [facility] MEDICINE 230 [place], [place] [phone] Name, MD Kiel 230 [place], [place] [phone] Reschedule Social History Tobacco Use Types Packs/Day [...] 08/01/2023 9:55 AM EDT Triage call with [place] Manager Package ID [id number] . Pt reports Covid + test this [...] 08/01/2023 9:04 AM EDT Patient cancelled todays MARKER ASSEMBLER RV appt today. Pt's MARKER ASSEMBLER appt has been rescheduled for chronic pain [...] AM EDT Tc from pt requesting r/s MARKER ASSEMBLER appt, stated is sick and suspect is COVID documented in this encounter Plan of Treatment Upcoming Encounters Date Type Department Care Team (Late st Contact Info) Description 11/15/2024 11:30 AM EDT Clinical Support [facility] MEDICINE [address] [place] [address] Opal Steiner, MARINA 11/27/2024 10:30 AM EDT Medication Management [facility] MEDICINE [address] [place] [address] Katlyn Rodriguez, PharmD 230 [place] [address] documented as of this encounter Goals Goal [...] documented as of this encounter Care Teams Criminal Lawyer Relationship Specialty Start Date End Date Name, MD Kiel 230 [place] [address] PCP - General Family Medicine 07/15/15 Puia, Katlyn, PharmD 230 [place] [address] Pharmacist Internal Medicine 10/08/22 Nehal Ann RN [address] [place] [address] Registered Nurse Family Medicine 08/20/24 10/29/24 Ania Spencer 08/20/24 Opal Leyva Registered Nurse 10/29/24 Marta Ovalle Copper PlaterBusiness Test Analyst 05/25/23 documented as of this encounter
--- OUTSIDE RECORDS SUMMARY | 2024-11-01 17:35 | XMS_ITS | Encounter Summary ---
Author Organization [employer] Address [address] [facility] 7t [place] [address] Care Team Providers Care Rough Rounder Machine Name Role Phone Name, Kiel BAILEY Primary Care Provider Katlyn Rodriguez PharmD Unavailable [phone] Nehal Ann RN Unavailable [phone] Ania Spencer Unavailable Opal Leyva Unavailable [phone] Reason for Visit * Reason Comments Med Refill Encounter Details Date Type Department Care Team (Late st Contact Info) Description 06/27/2023 Refill [facility] MEDICINE 230 [place], [place] [phone] Katlyn Rodriguez, PharmD 230 [place], [place] [phone] Tobacco use disorder Social History Tobacco Use [...] Description 11/15/2024 11:30 AM EDT Clinical Support [facility] MEDICINE [address] [place] [address] Opal Steiner RN 11/27/2024 10:30 AM EDT Medication Management [facility] MEDICINE [address] [place] [address] Puia, Katlyn, PharmD [address] [place] [address] documented as of this encounter Goals Goal [...] documented as of this encounter Care Teams Rough Rounder Machine Relationship Specialty Start Date End Date Name, MD Kiel [address] [place] [address] PCP - General Family Medicine 07/15/15 Katlyn Rodriguez PharmD [address] [place], [place] [phone] Pharmacist Internal Medicine 10/08/22 Nehal Ann RN [address] [place] [address] Registered Nurse Family Medicine 08/20/24 10/29/24 Ania Spencer 08/20/24 Opal Leyva Registered Nurse 10/29/24 Marta Ovalle Cloth Printing Utility WorkerCheck Scaler 05/25/23 documented as of this encounter
--- OUTSIDE RECORDS SUMMARY | 2024-11-01 17:35 | XMS_ITS | Encounter Summary ---
Author Organization [employer] Address [address] [place] [address] 7t [place] [address] Care Team Providers Care Drying Room Operator Name Role Phone Name, Kiel BAILEY Primary Care Provider [phone] Katlyn Rodriguez PharmD Unavailable [phone] Nehal Ann RN Unavailable [phone] Ania Spencer Unavailable Opal Leyva Unavailable [phone] Reason for Visit * Reason Comments Med Refill Encounter Details Date Type Department Care Team (Late st Contact Info) Description 06/28/2022 Refill [facility] MEDICINE 230 [place], [place] [phone] Name, MD Kiel 230 [place], [place] [phone] Chronic pain syndrome Social History Tobacco Use [...] Description 11/15/2024 11:30 AM EDT Clinical Support [address] [address] Opal Steiner, RN 11/27/2024 10:30 AM EDT Medication Management [address] [address] Katlyn Rodriguez PharmD [address] [place] [address] documented as of this encounter Visit Diagnoses Diagnosis Chronic pain syndrome documented in this encounter Care Teams Drying Room Operator Relationship Specialty Start Date End Date Name, MD Kiel [address] [place] [address] PCP - General Family Medicine 07/15/15 Katlyn Rodriguez, PharmD [address] [place] [address] Pharmacist Internal Medicine 10/08/22 Nehal Ann RN [address] [place] [address] Registered Nurse Family Medicine 08/20/24 10/29/24 Ania Spencer 08/20/24 Opal Leyva Registered Nurse 10/29/24 Marta Ovalle Petroleum Refinery LaborerBuilding Performance Consultant 05/25/23 documented as of this encounter
--- OUTSIDE RECORDS SUMMARY | 2024-11-01 17:35 | XMS_ITS | Encounter Summary ---
Author Organization [employer] Address [address] [facility] 7t [place] [address] Care Team Providers Care Flag Maker Name Role Phone Name, Kiel BAILEY Primary Care Provider Katlyn Rodriguez PharmD Unavailable Nehal Ann RN Unavailable [phone] Ania Spencer Unavailable Opal Leyva Unavailable [phone] Reason for Visit * Reason Comments Med Refill Encounter Details Date Type Department Care Team (Late st Contact Info) Description 06/08/2024 Refill [facility]S [address] [place], [place] [phone] Name, MD Kiel [address] [place] [address] Chronic pain syndrome Social History Tobacco Use [...] the past 12 months, has t he [employer], gas, oil or water Immediately threatened to shut off services in your [...] Support [facility] MEDICINE [address] [place] [address] Opal Steiner RN 11/27/2024 10:30 AM EDT Medication Management [facility] MEDICINE [address] [place] [address] PuiaReidKatlyn, PharmD [address] [place] [address] documented as of this encounter Goals Goal [...] documented as of this encounter Care Teams Flag Maker Relationship Specialty Start Date End Date Name, MD Kiel 230 [place], [place] [phone] PCP - General Family Medicine 07/15/15 Katlyn Rodriguez, PharmD 230 [place] [address] Pharmacist Internal Medicine 10/08/22 Nehal Ann RN 505 [place] [address] Registered Nurse Family Medicine 08/20/24 10/29/24 Ania Spencer 08/20/24 Opal Leyva Registered Nurse 10/29/24 Marta Ovalle Portrait ConsultantWood Machine Carver 05/25/23 documented as of this encounter
--- OUTSIDE RECORDS SUMMARY | 2024-11-01 17:35 | XMS_ITS | Encounter Summary ---
Author Organization [employer] Address [address] [place] [address] 7t [place] [address] Care Team Providers Care Axminster Rug Setter Name Role Phone Name, Kiel BAILEY Primary Care Provider Katlyn Rodriguez PharmD Unavailable Nehal Ann RN Unavailable [phone] Ania Spencer Unavailable Opal Leyva Unavailable [phone] Reason for Referral * Consultation (Routine) - Closed Specialty Diagnoses / Procedures Referred By Contac t Referred To Contact Physical Therapy Diagnoses Hemiparesis of left dominant side as late effect of cerebral infarction ([facility]/HCC) Kiel Shaffer MD [address] [place] [address] Phone: tel: fax: [facility] Physical Therapy [address] [place] [address] Phone: tel: fax: Referral ID Status Reason Start Date Expiration Date V isits Requested Visits Authorized [id number] Closed Specialty Services Required 10/06/2024 10/06/2025 20 20 Reason for Visit * Reason Onset Date Comments Referral 10/05/2024 Encounter Details Date Type Department Care Team (Late st Contact Info) Description 10/05/2024 Telephone [facility] MEDICINE 230 [place] [address] Kiel Shaffer MD [address] [place], [place] [phone] Referral Social History Tobacco Use Types Packs/Day [...] 10/05/2024 1:40 PM EDT TC placed to [facility] with [facility] physical therapy regarding referral request. [facility] states they havean order for physical therapy for weakness of both lower extremities. [facility] is requesting the referral be sent to them with MD signature. [facility] states when requesting additional visits through [facility], they are very particular and request MD signature. [facility] provided fax number [phone]. TC placed to [facility] Blue Team branch specialist [facility] for clarification on what is to be done. [facility] states they have not heard of this. [facility] states pt may need new referral as they after 30 days. TC placed to [facility] with [facility] physical therapy for clarification on request. [facility] states they require the referral to be electronically signed or physically signed by an MD. Message forwarded to PCP to review and advise. * Telephone Encounter - Rosario Phillips - 10/05/2024 11:04 AM EDT TC from [facility] with [facility] requesting a new referral for physical therapy with an MD sing Contact pt at [phone] documented in this encounter Plan of Treatment Upcoming Encounters Date Type Department Care Team (Late st Contact Info) Description 11/15/2024 11:30 AM EDT Clinical Support [facility] MEDICINE [address] [place] [address] Opal Steiner RN 11/27/2024 10:30 AM EDT Medication Management [facility] MEDICINE [address] [place] [address] Katlyn Rodriguez, AngieD [address] [place] [address] Scheduled Referrals Name Type Priority Associated Diagnoses [...] documented as of this encounter Care Teams Axminster Rug Setter Relationship Specialty Start Date End Date Name, MD Kiel [address] [place] [address] PCP - General Family Medicine 07/15/15 Puia, Katlyn, PharmD [address] [place] [address] Pharmacist Internal Medicine 10/08/22 Nehal Ann RN [address] [place] [address] Registered Nurse Family Medicine 08/20/24 10/29/24 Ania Spencer 08/20/24 Opal Leyva Registered Nurse 10/29/24 Marta Ovalle Preform Machine OperatorEducation Program Coordinator 05/25/23 documented as of this encounter
--- OUTSIDE RECORDS SUMMARY | 2024-11-01 17:35 | XMS_ITS | Encounter Summary ---
Author Organization [facility] Address [address] [place] [address] Phone Care Team Providers Care Logistics Solution Manager Name Role Phone Unavailable Primary Care Provider Unavailabl e Encounter Details Date Type Department Care Team (Late st Contact Info) Description 01/04/2020 Procedure Pass [facility] [address] [place] [address] [place], [place] [phone] Social History Tobacco Use Types Packs/Day Years [...] It is not the complete legal health record.[facility]
--- OUTSIDE RECORDS SUMMARY | 2024-11-01 17:35 | XMS_ITS | Encounter Summary ---
Author Organization [employer] Address [address] [facility] 7t [place] [address] Care Team Providers Care Water Mangle Tender Name Role Phone Name, Kiel BAILEY Primary Care Provider Katlyn Rodriguez PharmD Unavailable Nehal Ann RN Unavailable [phone] Ania Spencer Unavailable Opal Leyva Unavailable [phone] Reason for Visit * Reason Comments Med Refill Encounter Details Date Type Department Care Team (Late st Contact Info) Description 09/07/2023 Refill [facility] CHC MED & PEDS [address] [place], [place] [phone] Name, MD Kiel [address] [place] [address] Type 2 diabetes mellitus with other specified [...] the past 12 months, has t he [employer], gas, oil or water company threatened to [...] Clinical Support [facility] MEDICINE [address] [place] [address] Opal Steiner RN 11/27/2024 10:30 AM EDT Medication Management [facility] MEDICINE [address] [place] [address] PuiaReidKatlyn, PharmD [address] [place] [address] documented as of this encounter Goals Goal [...] as of this encounter Care Teams Water Mangle Tender Relationship Specialty Start Date End Date Name, MD Kiel [address] [place] [address] PCP - General Family Medicine 07/15/15 Katlyn Rodriguez PharmD [address] [place] [address] Pharmacist Internal Medicine 10/08/22 Nehal Ann RN [address] [place] [address] Registered Nurse Family Medicine 08/20/24 10/29/24 Ania Spencer 08/20/24 Opal Leyva Registered Nurse 10/29/24 Marta Ovalle Rapid Transit OperatorStorage Architect 05/25/23 documented as of this encounter
--- OUTSIDE RECORDS SUMMARY | 2024-11-01 17:35 | XMS_ITS ---
Author Organization [employer] Address [address] [place] [address] 7t [place] [address] Care Team Providers Care Paperhanger And Painter Name Role Phone Name, Kiel BAILEY Primary Care Provider Katlyn Rodriguez PharmD Unavailable Ania Spencer Unavailable Opal Leyva Unavailable [phone] Complex Status:Enrolled (Active) Start date:08/20/2024 Enrollment date:09/04/2024 Enrollment reason:ADT Feed Overview ED- Pt went to [facility] ED on 08/17/24. Case Team Name Relationship Phone Opal Leyva(Responsible Staff) Registered Nurse [phone] Continued Care and Services Coordination
--- OUTSIDE RECORDS SUMMARY | 2024-11-01 17:35 | XMS_ITS | Encounter Summary ---
Author Organization [employer] Address [address] [place] [address] 7t [place] [address] Care Team Providers Care Ranch Manager Name Role Phone Name, Kiel BAILEY Primary Care Provider [phone] Katlyn Rodriguez PharmD Unavailable Nehal Ann RN Unavailable [phone] Ania Spencer Unavailable Opal Leyva Unavailable [phone] Reason for Visit * Reason Comments Med Refill Encounter Details Date Type Department Care Team (Late st Contact Info) Description 07/16/2022 Refill [facility] MEDICINE [address] [place], [place] [phone] Name, MD Kiel [address] [place], [place] [phone] Chronic pain syndrome Social History Tobacco Use [...] Description 11/15/2024 11:30 AM EDT Clinical Support [address] [address] Opal Steiner, RN 11/27/2024 10:30 AM EDT Medication Management [address] [address] Katlyn Rodriguez PharmD [address] [place] [address] documented as of this encounter Visit Diagnoses Diagnosis Chronic pain syndrome documented in this encounter Additional Health Concerns Assessment Noted Time PHQ-9 Depression Total Score: 7 07/15/19 23 2:39 PM EDT documented as of this encounter Care Teams Ranch Manager Relationship Specialty Start Date End Date Name, MD Kiel [address] [place] [address] PCP - General Family Medicine 07/15/15 Katlyn Rodriguez PharmD [address] [place] [address] Pharmacist Internal Medicine 10/08/22 Nehal Ann RN [address] [place] [address] Registered Nurse Family Medicine 08/20/24 10/29/24 Ania Spencer 08/20/24 Opal Leyva Registered Nurse 10/29/24 Marta Ovalle SketcherPulp Cooker 05/25/23 documented as of this encounter
--- OUTSIDE RECORDS SUMMARY | 2024-11-01 17:35 | XMS_ITS | Encounter Summary ---
Author Organization [facility] Address [address] [place] [address] Care Team Providers Care Machine Spreader Name Role Phone Name, Kiel BAILEY Primary Care Provider [phone] Encounter Details Date Type Department Care Team Description 09/10/2022 Social Work [facility] Oncology Services [address] [place] [address] Adina Archer, [facility] [...] filedocumented in this encounter Care Teams Machine Spreader Relationship Specialty Start Date End Date Name, MD Kiel [address] [place] [address] [address] [place] [address] PCP - General Internal Medicine 04/17/18 documented as of this encounter
--- OUTSIDE RECORDS SUMMARY | 2024-11-01 17:35 | XMS_ITS | Encounter Summary ---
Author Organization [employer] Address [address] [place] [address] 7t [place] [address] Care Team Providers Care Rac Specialist Name Role Phone Name, Kiel BAILEY Primary Care Provider Katlyn Rodriguez PharmD Unavailable Nehal Ann RN Unavailable [phone] Ania Spencer Unavailable Opal Leyva Unavailable Reason for Visit * Reason Comments Med Refill Encounter Details Date Type Department Care Team (Late st Contact Info) Description 07/02/[address] [facility] MEDICINE [address] [place], [place] [phone] Name, MD Kiel [address] [place], [place] [phone] Chronic pain syndrome Social History Tobacco Use [...] Description 11/15/2024 11:30 AM EDT Clinical Support [address] [address] Opal Steiner, RN 11/27/2024 10:30 AM EDT Medication Management [address] [address] Katlyn Rodriguez PharmD [address] [place] [address] documented as of this encounter Visit Diagnoses Diagnosis Chronic pain syndrome documented in this encounter Care Teams Rac Specialist Relationship Specialty Start Date End Date Name, MD Kiel [address] [place] [address] PCP - General Family Medicine 07/15/15 Katlyn Rodriguez, PharmD [address] [place] [address] Pharmacist Internal Medicine 10/08/22 Nehal Ann RN [address] [place] [address] Registered Nurse Family Medicine 08/20/24 10/29/24 Ania Spencer 08/20/24 Opal Leyva Registered Nurse 10/29/24 Marta Ovalle Grain Merchandising ManagerLaborer Golf Course 05/25/23 documented as of this encounter
--- OUTSIDE RECORDS SUMMARY | 2024-11-01 17:35 | XMS_ITS | Encounter Summary ---
Author Organization [employer] Address [address] [facility] 7t [place] [address] Care Team Providers Care Human Factors Specialist Name Role Phone Name, Kiel BAILEY Primary Care Provider Katlyn Rodriguez PharmD Unavailable [phone] Nehal Ann RN Unavailable [phone] Ania Spencer Unavailable Opal Leyva Unavailable [phone] Encounter Details Date Type Department Care Team (Late Contact Info) Description 03/12/2022 Orders Only [facility] CHC MED & PEDS [address] [place] [address] Millie Sawant LPN Social History Tobacco Use [...] Description 11/15/2024 11:30 AM EDT Clinical Support [address] [address] Opal Steiner, RN 11/27/2024 10:30 AM EDT Medication Management [address] [address] Katlyn Rodriguez PharmD [address] [place] [address] documented as of this encounter Visit Diagnoses Not on filedocumented in this encounter Care Teams Human Factors Specialist Relationship Specialty Start Date End Date Name, MD Kiel [address] [place] [address] [phone] PCP - General Family Medicine 07/15/15 Katlyn Rodriguez PharmD [address] [place] [address] Pharmacist Internal Medicine 10/08/22 Nehal Ann RN [address] [place] [address] Registered Nurse Family Medicine 08/20/24 10/29/24 Ania Spencer 08/20/24 Opal Leyva Registered Nurse 10/29/24 Marta Ovalle Hydrometeorology TeacherIndustrial Custodian 05/25/23 documented as of this encounter
--- OUTSIDE RECORDS SUMMARY | 2024-11-01 17:35 | XMS_ITS | Encounter Summary ---
Author Organization [employer] Address [address] [place] [address] 7t [place] [address] Care Team Providers Care X Ray Control Equipment Repairer Name Role Phone Name, Kiel BAILEY Primary Care Provider Katlyn Rodriguez PharmD Unavailable [phone] Nehal Ann RN Unavailable [phone] Ania Spencer Unavailable Opal Leyva Unavailable [phone] Encounter Details Date Type Department Care Team ([facility] Contact Info) Description 02/23/2022 Orders Only [facility] [address] [place], [place] [phone] Name, MD Kiel [address] [place] [address] Social History Tobacco Use Types Packs/Day Years [...] Description 11/15/2024 11:30 AM EDT Clinical Support [address] [address] Opal Steiner, RN 11/27/2024 10:30 AM EDT Medication Management [address] [address] Katlyn Rodriugez, PharmD [address] [place] [place] [address] documented as of this encounter Visit Diagnoses Not on filedocumented in this encounter Care Teams X Ray Control Equipment Repairer Relationship Specialty Start Date End Date Name, MD Kiel [address] [place] [place] [address] [phone] PCP - General Family Medicine 07/15/15 Katlyn Rodriguez, PharmD [address] [place] [place] [address] [phone] Pharmacist Internal Medicine 10/08/22 Nehal nAn, MARINA [address] [place] [address] Registered Nurse Family Medicine 08/20/24 10/29/24 Ania Spencer 08/20/24 Opal Leyva Registered Nurse 10/29/24 Marta Ovalle Beader TenderCompliance Director 05/25/23 documented as of this encounter
--- OUTSIDE RECORDS SUMMARY | 2024-11-01 17:35 | XMS_ITS | Clinical Summary ---
Author Organization [facility] Address [address] [place] [address] Care Team Providers Care Labor Economics Teacher Name Role Phone Name, Kiel BAILEY Primary Care Provider [phone] Allergies Active Allergy Reactions Criticality Noted Date [...] age to complete this topic Care Teams Labor Economics Teacher Relationship Specialty Start Date End Date Name, MD Kiel [address] [facility] [address] [place] [address] PCP - General Internal Medicine 04/17/18
--- OUTSIDE RECORDS SUMMARY | 2024-11-01 17:35 | XMS_ITS | Encounter Summary ---
Author Organization [employer] Address [address] [place] [address] 7t [place] [address] Care Team Providers Care Careers Counsellor Name Role Phone Name, Kiel BAILEY Primary Care Provider Katlyn Rodriguez PharmD Unavailable Nehal Ann RN Unavailable [phone] Ania Spencer Unavailable Opal Leyva Unavailable [phone] Reason for Visit * Reason Comments Med Refill Encounter Details Date Type Department Care Team (Late st Contact Info) Description 02/10/2022 Refill [facility] CHC MED & PEDS [address] [place], [place] [phone] Name, MD Kiel [address] [place] [address] Chronic pain syndrome (Primary Dx) Social History [...] Description 11/15/2024 11:30 AM EDT Clinical Support [address] [address] Opal Steiner, RN 11/27/2024 10:30 AM EDT Medication Management [address] [address] Katlyn Rodriguez PharmD [address] [place] [address] documented as of this encounter Visit Diagnoses Diagnosis Chronic pain syndrome- Primary documented in this encounter Care Teams Careers Counsellor Relationship Specialty Start Date End Date Name, MD Kiel [address] [place] [address] PCP - General Family Medicine 07/15/15 Katlyn Rodriguez, PharmD [address] [place] [address] Pharmacist Internal Medicine 10/08/22 Nehal Ann, MARINA [address] [place] [address] Registered Nurse Family Medicine 08/20/24 10/29/24 Ania Spencer 08/20/24 Opal Leyva Registered Nurse 10/29/24 Marta Ovalle Paving Machine OperatorManager Community 05/25/23 documented as of this encounter
--- OUTSIDE RECORDS SUMMARY | 2024-11-01 17:36 | XMS_ITS | Encounter Summary ---
Author Organization [employer] Address [address] [place] [address] 7t [place] [address] Care Team Providers Care Counselor Education Professor Name Role Phone Name, Kiel BAILEY Primary Care Provider Katlyn Rodriguez PharmD Unavailable [phone] Nehal Ann RN Unavailable [phone] Ania Spencer Unavailable Opal Leyva Unavailable [phone] Reason for Referral * Consultation (Routine) - Closed Specialty Diagnoses / Procedures Referred By Contac t Referred To Contact Occupational Therapy Diagnoses Left arm weakness Lizzie Alfaro NP [address] [place] [address] Phone: tel: fax: [facility] [address] [place] [address] Phone: tel: fax: Referral ID Status Reason Start Date Expiration Date V isits Requested Visits Authorized [id number] Closed Specialty Services Required 09/06/2024 09/06/2025 20 20 Encounter Details Date Type Department Care Team (Late st Contact Info) Description 09/06/2024 Orders Only [facility] MEDICINE [address] [place] [address] Lizzie Alfaro NP [address] [place] [address] Left arm weakness (Primary Dx) Social History [...] is your housing situation today? I have shriin jackson 09/02/[address] you [...] 11/15/2024 11:30 AM EDT Clinical Support [address] [address] Opal Steiner RN 11/27/2024 10:30 AM EDT Medication Management [address] [address] Puia, Katlyn, PharmD [address] [place] [address] Scheduled Referrals Name Type Priority Associated Diagnoses [...] documented as of this encounter Care Teams Counselor Education Professor Relationship Specialty Start Date End Date Name, MD Kiel [address] [place] [address] PCP - General Family Medicine 07/15/15 Puia, Katlyn, PharmD [address] [place] [address] Pharmacist Internal Medicine 10/08/22 Nehal Ann RN [address] [place] [address] Registered Nurse Family Medicine 08/20/24 10/29/24 Ania Spencer 08/20/24 Opal Leyva Registered Nurse 10/29/24 Marta Ovalle Kettle ChipperButton Pusher 05/25/23 documented as of this encounter
--- OUTSIDE RECORDS SUMMARY | 2024-11-01 17:36 | XMS_ITS | Encounter Summary ---
Author Organization [employer] Address [address] [facility] 7t [place] [address] Care Team Providers Care Caseworker Protective Services Name Role Phone Name, Kiel BAILEY Primary Care Provider [phone] Katlyn Rodriguez PharmD Unavailable [phone] Ania Spencer Unavailable Opal Leyva Unavailable [phone] Encounter Details Date Type Department Care Team (Latest Contact Info) Description 11/01/2024 Travel Social History Tobacco Use Types Packs/Day [...] your housing situation today? I have shirin jackosn 09/02/[address] you li [...] Description 11/15/2024 11:30 AM EDT Clinical Support [address] [address] Opal Steiner RN 11/27/2024 10:30 AM EDT Medication Management [address] [address] Puia, Katlyn, PharmD [address] [place] [address] documented as of this encounter Goals Goal [...] documented as of this encounter Care Teams Caseworker Protective Services Relationship Specialty Start Date End Date Name, MD Kiel [address] [place] [address] [phone] PCP - General Family Medicine 07/15/15 Katlyn Rodriguez PharmD 230 [facility] [place] [phone] Pharmacist Internal Medicine 10/08/22 Ania Spencer 08/20/24 Opal Leyva Registered Nurse 10/29/24 Marta Ovalle SailorSleeve Presser Operator 05/25/23 documented as of this encounter
--- OUTSIDE RECORDS SUMMARY | 2024-11-01 17:36 | XMS_ITS | Encounter Summary ---
Author Organization [employer] Address [address] [facility] 7t [place] [address] Care Team Providers Care Vibrating Screen Operator Name Role Phone Name, Kiel BAILEY Primary Care Provider [phone] Katlyn Rodriguez PharmD Unavailable [phone] Nehal Ann RN Unavailable [phone] Ania Spencer Unavailable Opal Leyva Unavailable [phone] Encounter Details Date Type Department Care Team (Latest Contact Info) Description 10/29/2024 Travel Social History Tobacco Use Types Packs/Day [...] Description 11/15/2024 11:30 AM EDT Clinical Support [address] [address] Opal Steiner RN 11/27/2024 10:30 AM EDT Medication Management [address] [address] Puia, Katlyn, PharmD [address] [place] [address] documented as of this encounter Goals Goal [...] documented as of this encounter Care Teams Vibrating Screen Operator Relationship Specialty Start Date End Date Name, MD Kiel [address] [place] [address] PCP - General Family Medicine 07/15/15 Katlyn Rodriguez PharmD [address] [place] [address] Pharmacist Internal Medicine 10/08/22 Nehal Ann RN [address] [place] [address] Registered Nurse Family Medicine 08/20/24 10/29/24 Ania Spencer 08/20/24 Opal Leyva Registered Nurse 10/29/24 Marta Ovalle Parts Data WriterBrimming Machine Operator 05/25/23 documented as of this encounter
--- OUTSIDE RECORDS SUMMARY | 2024-11-01 17:36 | XMS_ITS | Encounter Summary ---
Author Organization [employer] Address [address] [place] [address] 7t [place] [address] Care Team Providers Care Consumer Affairs Director Name Role Phone Kiel Fleming MD Primary Care Provider [phone] Katlyn Rodriguez PharmD Unavailable [phone] Nehal Ann RN Unavailable [phone] Ania Spencer Unavailable Opal Leyva Unavailable [phone] Reason for Referral * Consultation (Routine) - Authorized Specialty Diagnoses / Procedures Referred By Contac t Referred To Contact Pharmacy Diagnoses Type 2 diabetes mellitus with other specified complication, with long-term current use of insulin ([facility]) Kiel Fleming MD [address] [place] [address] Phone: tel: fax: Referral ID Status Reason Start Date Expiration Date Visits Requested Visits Authorized [id number] Authorized Consult and Treat 10/29/2024 10/29/2025 6 6 Encounter Details Date Type Department Care Team (Late st Contact Info) Description 10/29/2024 Telephone [facility] MEDICINE [address] [place], [place] [phone] Katlyn Rodriguez PharmD [address] [place], [place] [phone] Social History Tobacco Use Types Packs/Day Years [...] encounter Miscellaneous Notes * Addendum Note - Kiel Fleming MD - 10/29/2024 12:48 PM EDTAddended by: KIEL FLEMING on: 10/29/2024 12:48 PM Modules accepted: Orders * Telephone Encounter - Katlyn Rodriguez PharmD - 10/29/2024 12:42 PM EDT Pharmacy is requesting an updated CDTM referral with a diagnosis of diabetes. This is to replace existing referral which will prior to next visit. Please send at your earliest convenience. Thank you! documented in this encounter Plan of Treatment Upcoming Encounters Date Type Department Care Team (Late st Contact Info) Description 11/15/2024 11:30 AM EDT Clinical Support [address] [address] Opal Steiner, MARINA 11/27/2024 10:30 AM EDT Medication Management [address] [address] Katlyn Rodriguez PharmD [address] [place] [address] Scheduled Referrals Name Type Priority Associated Diagnoses Orde r Schedule Referral to Pharmacy CDTM Outpatient Referral Routine Type 2 diabetes mellitus with other specified complication, with long-term current use of insulin (CMS/[facility]) Ordered: 10/29/2024 documented as of this encounter Goals Goal Patient Goal Type Associated Problems Recent Progress Patient-Stated? Author Record your blood pressure once per day Blood Pressure No Katlyn Rodriguez PharmD Blood Pressure < 140/90 Blood Pressure 136/94(2024 12:08 PM EDT) No Katlyn Rodriguez PharmD Hemoglobin A1c < 7 Result Component 7.5( 11:12 AM EDT) No Katlyn Rodriguez PharmD Record your blood sugar as directed Result Component No Katlyn Rodriguez PharmD documented as of this encounter Visit Diagnoses Diagnosis Type 2 diabetes mellitus with other specified complication, with long-term current use of insulin (CMS/HCC)- Primary documented in this encounter Additional Health Concerns Assessment Noted Time PHQ-9 Depression Total Score: 7 09/05/19 25 11:46 AM EDT documented as of this encounter Care Teams Consumer Affairs Director Relationship Specialty Start Date End Date Name, MD Kiel [address] [place] [address] PCP - General Family Medicine 07/15/15 Katlyn Rodriguez, AngieD [address] [place] [address] Pharmacist Internal Medicine 10/08/22 Nehal Ann, MARINA [address] [place] [address] Registered Nurse Family Medicine 08/20/24 10/29/24 Ania Spencer 08/20/24 Opal Leyva Registered Nurse 10/29/24 Marta Ovalle Flat Sorter ProcessorSolar Sales Ambassador 05/25/23 documented as of this encounter
--- OUTSIDE RECORDS SUMMARY | 2024-11-01 17:36 | XMS_ITS | Encounter Summary ---
Author Organization [employer] Address [address] [facility] 7t [place] [address] Care Team Providers Care Network Support Engineer Name Role Phone Name, Kiel BAILEY Primary Care Provider [phone] Katlyn Rodriguez PharmD Unavailable [phone] Ania Spencer Unavailable Opal Leyva Unavailable [phone] Reason for Visit * Reason Onset Date Comments Nurse Triage 11/01/2024 Encounter Details Date Type Department Care Team (Late st Contact Info) Description 11/01/2024 Telephone [facility] MEDICINE [address] [place], [place] [phone] Name, MD Kiel [address] [place] [address] Nurse Triage Social History Tobacco Use Types [...] encounter Miscellaneous Notes * Telephone Encounter - Jojo Calabrese RN - 11/01/2024 11:06 AM EDT No interpreter and translator needed as this parts data writer speaks Estonian. Call returned to Sarita Puga to triage below at [phone]. Reports pt having a fall on Tuesday. Pt was going to sit on Rolator walker and did not place brakes and fell onto bottom and onto right side. Pt has hemiparesis on left side so unable to brace fall Reports having pain on left hand and arm. No noted bruising. Mild swelling. No headinjury. Pt did not seek UC or ER. Advised of need for evaluation to rule out fractures. agrees to seek [facility] for exam as no sick on site availability on teams at time of call. Reviewed [facility] operating hours and that wait times vary. Protocol Used: Arm Injury (Adult) Protocol-Based Disposition: See in Office or Video Visit Today or Tomorrow Video visit offer not recorded Positive Triage Question: * Moderate pain (e.g., interferes with normal activities) and high-risk adult (e.g., age > 60 years, osteoporosis, chronic steroid use) * All higher-acuity triage questions were negative Care Advice Discussed: * Reassurance and Education - Bending or Twisting Injury (Strain, Sprain) * Pain Medicines * Reasons To Call Back - You become worse * Telephone Encounter - Garrett Ovalle - 11/01/2024 10:19 AM EDT Symptoms: Fall, Hand or Wrist Pain - Not From Injury Outcome: Schedule an urgent appointment (within 1 hour) or talk to a nurse or provider soon Reason: Can't use the hand normally Please contact pt at [phone]. (Estonian Speaker) documented in this encounter Plan of Treatment Upcoming Encounters Date Type Department Care Team (Late st Contact Info) Description 11/15/2024 11:30 AM EDT Clinical Support [address] [address] Opal Steiner RN 11/27/2024 10:30 AM EDT Medication Management [address] [address] Puia, Katlyn, PharmD [address] [place] [address] documented as of this encounter Goals Goal [...] as of this encounter Care Teams Network Support Engineer Relationship Specialty Start Date End Date Name, MD Kiel [address] [place], [place] [phone] PCP - General Family Medicine 07/15/15 Katlyn Rodriguez PharmD [address] [place], [place] [phone] Pharmacist Internal Medicine 10/08/22 Ania Spencer 08/20/24 Opal Leyva Registered Nurse 10/29/24 Marta Ovalle Pulpwood ContractorPunchboard Inserter 05/25/23 documented as of this encounter
--- OUTSIDE RECORDS SUMMARY | 2024-11-01 17:36 | XMS_ITS | Encounter Summary ---
Author Organization [employer] Address [address] [place] [address] 7t [place] [address] Care Team Providers Care Cushion Stuffer Name Role Phone Name, Kiel BAILEY Primary Care Provider [phone] Katlyn Rodriguez PharmD Unavailable [phone] Nehal Ann RN Unavailable [phone] Ania Spencer Unavailable Opal Leyva Unavailable [phone] Reason for Referral * Consultation (Routine) - Closed Specialty Diagnoses / Procedures Referred By Carroll t Referred To Contact Occupational Therapy Diagnoses Weakness of both lower extremities Hemiparesis of left dominant side as late effect of cerebral infarction (CMS/HCC) Lizzie Alfaro NP [address] [place] [address] Phone: tel: fax: [facility] Physical Therapy [address] [place] [address] Phone: tel: fax: Referral ID Status Reason Start Date Expiration Date V isits Requested Visits Authorized [id number] Closed Specialty Services Required 09/06/2024 09/06/2025 20 20 * Consultation (Routine) - Closed Specialty Diagnoses / Procedures Referred By Carroll hoover Referred To Contact Physical Therapy Diagnoses Weakness of both lower extremities Lizzie Alfaro NP [address] [place] [address] Phone: tel: fax: [facility] Physical Therapy [address], [place] Phone: tel: fax: Referral ID Status Reason Start Date Expiration Date V isits Requested Visits Authorized [id number] Closed Specialty Services Required 09/06/2024 09/06/2025 20 20 Encounter Details Date Type Department Care Team (Late st Contact Info) Description 09/06/2024 Orders Only [facility] MEDICINE [address] [place] [address] Lizzie Alfaro NP [address] [place], [place] [phone] Weakness of both lower extremities (Primary Dx); [...] Description 11/15/2024 11:30 AM EDT Clinical Support [address] [address] Opal Steiner RN 11/27/2024 10:30 AM EDT Medication Management [address] [address] Puia, Katlyn, PharmD [address] [place] [address] Scheduled Referrals Name Type Priority Associated Diagnoses Orde r Schedule Referral to Physical Therapy Outpatient Referral Routine Weakness of both lower extremities Expected: 09/06/2024 (Approximate), Expires: 09/06/2025 Referral to Occupational Therapy Outpatient Referral Routine Weakness of both lower extremities Hemiparesis of left dominant side as late effect of cerebral infarction ([facility]/HCC) Expected: 09/06/2024 (Approximate), Expires: 09/06/2025 documented as [...] documented as of this encounter Care Teams Cushion Stuffer Relationship Specialty Start Date End Date Name, MD Kiel [address] [place] [address] PCP - General Family Medicine 07/15/15 Katlyn Rodriguez, Bin [address] [place] [address] Pharmacist Internal Medicine 10/08/22 Nehal Ann RN [address] [place] [address] Registered Nurse Family Medicine 08/20/24 10/29/24 Ania Spencer 08/20/24 Opal Leyva Registered Nurse 10/29/24 Marta Ovalle Manager Critical Care UnitCentral Scheduler 05/25/23 documented as of this encounter
== END 2024-11-01 13:44 | disposition home or self-care (01) ==
LOC: HO.HHCX 13:43
PROVIDERS: PCP Internal Medicine Geriatric Medicine; Visit Provider Internal Medicine
DX: M25.512 Pain in left shoulder (principal); M54.50 Low back pain, unspecified
CPT/HCPCS: 72100; 73030

== ENCOUNTER → 2024-11-01 13:58 | Outpatient (BNV) | payer MEDICAID, SELFPAY | PROVIDERS: PCP Internal Medicine Geriatric Medicine; Visit Provider Radiology Diagnostic Radiology | DX: M51.360 Other intervertebral disc degeneration, lumbar region with discogenic back pain only (principal); M25.512 Pain in left shoulder | CPT/HCPCS: 72100; 73030 ==

== ENCOUNTER 2024-11-05 10:26 | Outpatient (AMB) | payer MEDICAID, SELFPAY ==
--- OUTSIDE RECORDS SUMMARY | 2023-11-24 09:53 | XMS_ITS | Encounter Summary ---
Author Organization [facility] Address [address] [place] [address] Care Team Providers Care Auto Seat Cover Installer Name Role Phone Name, Kiel BAILEY Primary Care Provider [phone] Encounter Details Date Type Department Care Team (Late st Contact Info) Description 11/24/2023 9:53 AM EDT Hospital Encounter TH HISTORIC ENCOUNTERS EASTERN CONVERSION ONLY Geoffrey-Art Vitale MD [address] [place] [address] Social History Tobacco Use Types [...] 2:17 PM Encounter Date: 11/24/2023 Status: Signed Plumbers And Top Helpers: Art Davis MD (Physician) CHIEF COMPLAINT: Chief Complaint Patient presents with ? Follow-up Diffuse large B-cell lymphoma Stage III Completed 6 cycles of R-CHOP in July 23, 2018 IDENTIFIER:Sarita Puga is a 58 y.o. female. HPI: The patient returns for follow up of Large B-cell lymphoma. Here with her daughter , who is malay to georgian psychiatric technician Patient reports that she has been doing [...] accompanied by her daughter and girlfriend. As Dominican to Amharic psychiatric technician assisted with the discussion. She had a [...] daughter Art Davis MD Cc Name, MD iKel Cc Dr. [place] BRUNER documented in this encounter Plan of Treatment Upcoming Encounters Date Type Department Care Team (Late st Contact Info) Description 11/27/2024 9:45 AM EDT Office Visit Orthopedic Surgery - [place] [address] [address] Wesley Garcia DPM [address] [phone] documented as of this encounter Procedures Procedure [...] documented as of this encounter Care Teams Auto Seat Cover Installer Relationship Specialty Start Date End Date Name, MD Kiel 4 [place], [place] PCP - General Internal Medicine 08/28/15 documented as of this encounter
--- OUTSIDE RECORDS SUMMARY | 2023-11-24 10:30 | XMS_ITS | Encounter Summary ---
Author Organization [facility] Address [address] [place] [address] Care Team Providers Care Beveler Name Role Phone Name, Kiel BAILEY Primary Care Provider [phone] Encounter Details Date Type Department Care Team (Late Contact Info) Description 11/24/2023 10:30 AM EDT Hospital Encounter TH HISTORIC ENCOUNTERS EASTERN CONVERSION ONLY Geoffrey-Art Vitale MD [address] [place] [phone] Social History Tobacco Use Types Packs/Day Years [...] 9:45 AM EDT Office Visit Orthopedic Surgery [facility] 250 175 [facility] 250 [place] [phone] Wesley Gacria, DPM 175 [facility] 250 [place] [phone] documented as of this encounter Visit Diagnoses Not on filedocumented in this encounter Additional Health Concerns Infection Onset Date Last Indicated Resolved Time Respiratory Rule-Out 02/05/2024 02/05/2024 024 8:09 AM EST COVID-19 Rule-Out 02/05/2024 02/05/2024 02/05/2024 8:09 AM EST documented as of this encounter Care Teams Beveler Relationship Specialty Start Date End Date Name, MD Kiel 4 [place], [place] PCP - General Internal Medicine 08/28/15 documented as of this encounter
--- OUTSIDE RECORDS SUMMARY | 2024-11-01 13:00 | XMS_ITS | Encounter Summary ---
Author Organization [employer] Address [address] [place] [address] 7t [place] [address] Care Team Providers Care Collector Of Port Name Role Phone Name, Kiel BAILEY Primary Care Provider Katlyn Rodriguez PharmD Unavailable [phone] Ania Spencer Unavailable Opal Leyva Unavailable [phone] Reason for Referral * Consultation (Routine) - Closed Specialty Diagnoses / Procedures Referred By Carroll hoover Referred To Contact Occupational Therapy Diagnoses Bilateral hand pain Hemiparesis affecting left side as late effect of cerebrovascular accident ([facility]) Sarita Baker MD [address] [place] [address] Phone: tel: fax: [facility] Physical Therapy [address] [place] [address] Phone: tel: fax: Referral ID Status Reason Start Date Expiration Date V isits Requested Visits Authorized [id number] Closed Specialty Services Required 11/01/2024 11/01/2025 1 1 Encounter Details Date Type Department Care Team (Latest Contact Info) Description 11/01/2024 1:00 PM EDT Office Visit [facility] [address] [place], [place] [address] Sarita Baker MD [address], [place] [phone] Acute bilateral low back pain without sciatica; [...] Not on file Problem List[1] B-cell lymphoma ([facility]) Carpal tunnel syndrome Depression Essential hypertension H/O: hysterectomy Hemorrhoids S/P TKR (total knee replacement), right Knee pain Migraine Obstructive sleep apnea syndrome Osteoarthritis of knee Tubular adenoma Anxiety Cocaine abuse, episodic use ([facility]) Gait instability Hypertriglyceridemia Lipoma of abdominal wall Memory deficit On home oxygen therapy Chronic intractable headache Severe obesity ([facility]) Tobacco use disorder Chronic obstructive pulmonary disease, unspecified ([facility]) Health care maintenance Urinary incontinence in female Type 2 diabetes mellitus with other specified complication ([facility]) Chronic pain syndrome Chronic, continuous use of opioids Cerebellar mass History of stroke Hemiparesis of left dominant side ([facility]) Cerebrovascular accident (CVA) ([facility]) Other chest pain Long-term current use [...] Tubular adenoma Anxiety Cocaine abuse, episodic use ([facility]) Gait instability Hypertriglyceridemia Lipoma of abdominal wall Memory deficit On home oxygen therapy Chronic intractable headache Severe obesity ([facility]) Tobacco use disorder Chronic obstructive pulmonary disease, unspecified ([facility]) Health care maintenance Urinary incontinence in female Type 2 diabetes mellitus with other specified complication ([facility]) Chronic pain syndrome Chronic, continuous use of opioids Cerebellar mass History of stroke Hemiparesis of left dominant side ([facility]) Cerebrovascular accident (CVA) ([facility]) Other chest pain Long-term current use of opiate analgesic Non-recurrent acute suppurative otitis media of left ear without spontaneous rupture of tympanic membrane Nondisplaced fracture of right radial styloid process, initial encounter for closed fracture Acute bilateral low back pain without sciatica Acute pain of left shoulder Bilateral hand pain Hemiparesis affecting left side as late effect of cerebrovascular accident ([facility]) [2] No family history on file. [...] per day. 90 tablet 1 TechLite Pen [place] 32G X 4 MM misc USE DIRECTED [...] Description 11/15/2024 11:30 AM EDT Clinical Support [facility] [address] [place] [address] Opal Steiner, MARINA 11/27/2024 10:30 AM EDT Medication Management [facility] [address] [place] [address] Katlyn Rodriguez, AngieD [address] [place] [address] Scheduled Referrals Name Type Priority Associated Diagnoses Orde r Schedule Referral to Occupational Therapy Outpatient Referral Routine Bilateral hand pain Hemiparesis affecting left side as late effect of cerebrovascular accident (CMS/HCC) Expected: 11/01/2024 (Approximate), Expires: 11/01/2025 documented as [...] PM EDT Narrative 11/01/2024 3:21 [place] [address] XRay Report Signed Patient: Sarita Puga MR#: [id number] 92 : 1965 Acct:[id number] Age/Sex: 59 / F ADM Date: 11/01/24 Loc: [facility] Attending Dr: Sarita Gonzalez MD Ordering Physician: Sarita Baker MD Date of Service: 11/01/24 Procedure(s): XR shoulder LT min 2V Accession Number(s): [id number] cc: Sarita Baker MD; Name,Kiel BAILEY Reason [...] 11/01/24 1518 DD/ 1506 TD/TT: 11/01/24 1508 Car Pilot: Procedure Note Donotuseinterpreter, Image - 11/01/2024 [place] [address] XRay Report Signed Patient: Sarita Puga MMR#: [id number] 92 : 1965Acct:[id number] Age/Sex: 59 / FADM Date: 11/01/24 Loc: HO.[facility]HCX Attending Dr: Sarita Gonzalez MD Ordering Physician: Sarita Baker MD Date of Service: 11/01/24 Procedure(s): XR shoulder LT min 2V Accession Number(s): [id number] cc: Sarita Baker MD; Name,Kiel BAILEY Reason [...] 11/01/24 1518 DD/ 1506 TD/TT: 11/01/24 1508 Car Pilot: Sarita Gonzalez MD IMG XR PROCEDURES Fin al Result * XR Lumbar Spine 2-3 Views (11/01/2024 2:27 PM EDT) Anatomical Region Laterality Modality Spine, L-spine Radiographic Diana ging 11/01/2024 2:27 PM EDT Narrative 11/01/2024 3:23 PM EDT [address] [address] XRay Report Signed Patient: Sarita Puga MR#: [id number] 92 : 1965 Acct:[id number] Age/Sex: 59 / F ADM Date: 11/01/24 [facility]: Sarita Gonzalez MD Ordering Physician: Sarita Baker MD Date of Service: 11/01/24 Procedure(s): XR lumbar spine 2-3V Accession Number(s): [id number] cc: Sarita Baker MD; Name,Kiel BAILEY Reason [...] Zohaib Murray MD 11/01/2024 03:20 PM EDT RP Dictated By: Zohaib Murray MD Signed By: <Electronically signed by Zohaib Murray MD in OV> 11/01/24 1520 DD/ 1427 TD/TT: 11/01/24 1508 Car Pilot: Procedure Note Donotuseinterpreter, Image - 11/01/[address] [address] XRay Report Signed Patient: Sarita Puga MMR#: [id number] 92 : 1965Acct:[id number] Age/Sex: 59 / FADM Date: 11/01/24 Loc: HO.HHCX Attending Dr: Sarita Gonzalez MD Ordering Physician: Sarita Baker MD Date of Service: 11/01/24 Procedure(s): XR lumbar spine 2-3V Accession Number(s): [id number] cc: Sarita Baker MD; Name,Kiel BAILEY Reason [...] 11/01/24 1520 DD/ 1427 TD/TT: 11/01/24 1508 Car Pilot: Sarita Gonzalez MD IMG XR PROCEDURES Fin [...] documented as of this encounter Care Teams Collector Of Port Relationship Specialty Start Date End Date Name, MD Kiel [address] [place] [address] PCP - General Family Medicine 07/15/15 Katlyn Rodriguez PharmD [address] [place] [address] Pharmacist Internal Medicine 10/08/22 Ania Spencer 08/20/24 Opal Leyva Registered Nurse 10/29/24 Marta Ovalle Skate Shop AttendantClinical Engineer 05/25/23 documented as of this encounter
--- NOTE | 2024-11-05 10:30 | MHC.OFFVIS ---
Vital Signs 11/05/24 10:53 Height 5 ft 3 in Weight 234 lb BMI 41.4 Intake Visit Reasons: FC-RT hand radial styloid fx s/p fall 10/06/24 Intake Note: Sarita is a 59 year old right hand dominant woman who presents today for a cast change status post Right Radial Styloid Fracture and Tenderness of Anatomical Snuffbox DOI: 10/06/2024. She was placed in a Thumb Spica cast on 10/26/24. Patient reports today her cast got wet and now it is very itchy. She complains of pain on the radial aspect of the right wrist. She has a follow up scheduled for 11/16/24. Patient is also expressing concern for swelling on dorsal aspect of the left hand. Status post Left CTR by Dr. Sarkar, DOS:12/01/23. Revenue Cycle Consultant Required: No Allergies penicillin G (Penicillin G) Allergy (Mild, Verified 10/26/24 14:57) SWELLING barium sulfate (ORAL CONTRAST) Allergy (Unknown, Verified 10/26/24 14:57) HIVES cephalexin Allergy (Unknown, Verified 10/26/24 14:57) Unknown HPI HPI FC-RT hand radial styloid fx s/p fall 10/06/24: Details: Sarita is a 59 year old right hand dominant woman who presents today for a cast change status post Right Radial Styloid Fracture and Tenderness of Anatomical Snuffbox DOI: 10/06/2024. She was placed in a Thumb Spica cast on 10/26/24. Patient reports today her cast got wet and now it is very itchy. She complains of pain on the radial aspect of the right wrist. She has a follow up scheduled for 11/16/24. Patient is also expressing concern for swelling and limited range of motion on dorsal aspect of the left hand. Status post Left CTR by Dr. Sarkar, DOS:12/01/23. Of note, patient is also status post CVA with residual left-sided effects. [facility] Medical History COPD (chronic obstructive pulmonary disease) Diabetes mellitus Brain lesion Reactive airway disease Coronary artery disease Insulin dependent type 2 diabetes mellitus Exposure to rabies Lymphoma Restrictive lung disease secondary to obesity Nocturnal hypoxemia DRE (obstructive sleep apnea) Cough Nicotine dependence, cigarettes, uncomplicated Allergic rhinitis Morbid obesity Hyperlipidemia GERD (gastroesophageal reflux disease) Tubular adenoma Chronic idiopathic constipation IBS (irritable bowel syndrome) Back pain Depression Surgical History History of total right knee replacement (TKR) History of appendectomy (~1978) History of (~1986) History of hysterectomy (~1995) History of lithotripsy (~2018) History of carpal tunnel surgery of right wrist (~2020) History of colonoscopy History of esophagogastroduodenoscopy (EGD) Family History Mother Diabetes Heart muscle disorder caused by another medical condition Father Diabetes Epilepsy Sister No problems noted. Sister No problems noted. Sister No problems noted. Sister No problems noted. Sister No problems noted. Brother No problems noted. Brother No problems noted. Brother No problems noted. Brother No problems noted. Brother No problems noted. Brother No problems noted. Daughter No problems noted. Daughter No problems noted. Son No problems noted. Son No problems noted. Son No problems noted. Social History Household Members: Other Household Members Other:: grandson Housing: Apartment Are you a primary manager long term care to a significant other at home: No Do you presently have visiting nurse or other home services: No Alcohol intake: current Alcohol intake frequency: a few times a week Patient Tobacco Use Status: Current everyday Tobacco user Tobacco use type: Cigarette Cigarette Packs Per Day: 2 Cigarettes Per Day: 40.0 Years Smoked: (onset 13yo, x 42yrs, max 2ppd, now 1/2ppd - 30PYH) e-Cigarette/Vaping Use: Never Used Second Hand Smoke Exposure: No Substance Use Type: Marijuana service: No Current occupational status: disabled Current occupation: rt handed Review of Systems Const All systems reviewed & are unremarkable except as noted in HPI and below Physical Exam Vital Signs: BMI result Body Mass Index 41.4 Extrem Other: Patient is alert, oriented, and in no acute distress. Neuro: Normal sensation of the tips of all digits of the right hand at this time Vascular: Cap refill brisk Pain: Tenderness to palpation about the right distal radius, particularly over the radial styloid Tenderness to palpation of right anatomical snuffbox and scaphoid tubercle No tenderness to palpation of ulnar aspect of right wrist Skin: No lacerations or abrasions. General: No ecchymosis, erythema, or evidence of infection. Psych: Appears grossly normal Affect normal Attitude cooperative Office Procedures Casting/Splints 92241-Nlkx/Wrist Cast Application Procedure code (CPT) selection complete Assessment & Plan Assessment & Plan (1) Nondisplaced fracture of right radial styloid process, initial encounter for closed fracture: Code(s): S52.514A - Nondisplaced fracture of right radial styloid process, initial encounter for closed fracture Category: Medical (2) Tenderness of anatomical snuffbox: Code(s): M79.643 - Pain in unspecified hand Category: Medical Plan 1. Right radial styloid fracture 2. Tenderness of anatomical snuffbox with associated concerning area on x-ray Date of injury 10/06/2024 Patient is educated about this condition Patient is educated about the typical treatment course At this time, patient is once again placed into a thumb spica cast Patient is educated on proper cast care and precautions Follow-up for previously scheduled appointment, we will consider MRI if she is steaming cabinet tender in the anatomical snuffbox at that time Patient understands this is and is amenable to this plan Coding Level of Care Code Global (72336) Diagnoses Nondisplaced fracture of right radial styloid process, initial encounter for closed fracture S52.514A Tenderness of anatomical snuffbox M79.643 CPT Codes Casting - CPT: 61032-Zctt/Wrist Cast Application ([id number])
[2024-11-05 10:53] VITALS: BMI 41.4
--- OUTSIDE RECORDS SUMMARY | 2024-11-05 13:20 | XMS_ITS | Encounter Summary ---
Author Organization [facility] Address [address] [place] [address] Care Team Providers Care Billiard Table Repairer Name Role Phone Name, Kiel BAILEY Primary Care Provider Unavailabl e Name, Kiel BAILEY Primary Care Provider Unavailabl e Philly Vela DO Primary Care Pro vider Unavailable Name, Kiel BAILEY Primary Care Provider Unavailabl e Encounter Details Date Type Department Care Team Description 10/31/2009 Hospital Medical Records [address] [place] [address] [place] Social History Tobacco Use Types [...] on filedocumented in this encounter Care Teams Billiard Table Repairer Relationship Specialty Start Date End Date Kiel Shaffer MD PCP - General 05/26/09 04/27/15 Kiel Shaffer MD PCP - General Internal Medicine 04/28/15 05/05/15 Philly Vela DO PCP - General Internal Medicine 05/06/15 08/27/15 Kiel Shaffer MD PCP - General Internal Medicine 08/28/15 documented as of this encounter
--- OUTSIDE RECORDS SUMMARY | 2024-11-05 13:20 | XMS_ITS | Encounter Summary ---
Author Organization [facility] Address [address] [place] [address] Care Team Providers Care Vice President Of Procurement Name Role Phone Name, Kiel BAILEY Primary Care Provider Unavailabl e Name, Kiel BAILEY Primary Care Provider Unavailabl e Philly Vela DO Primary Care Pro vider Unavailable Name, Kiel BAILEY Primary Care Provider Unavailabl e Encounter Details Date Type Department Care Team Description 01/31/2014 Home Health Certification Medical Records [address] [place] [address] Social History Tobacco Use Types Packs/Day Years [...] on filedocumented in this encounter Care Teams Vice President Of Procurement Relationship Specialty Start Date End Date Kiel Shaffer MD PCP - General 05/26/09 04/27/15 Kiel Shaffer MD PCP - General Internal Medicine 04/28/15 05/05/15 Philly Vela DO PCP - General Internal Medicine 05/06/15 08/27/15 Kiel Shaffer MD PCP - General Internal Medicine 08/28/15 documented as of this encounter
--- OUTSIDE RECORDS SUMMARY | 2024-11-05 13:20 | XMS_ITS | Encounter Summary ---
Author Organization [employer] Address [address] [place] [address] 7t [place] [address] Care Team Providers Care Technology Advisor Name Role Phone Name, Kiel BAILEY Primary Care Provider Katlyn Rodriguez PharmD Unavailable [phone] Nehal Ann RN Unavailable [phone] Ania Spencer Unavailable Opal Leyva Unavailable [phone] Encounter Details Date Type Department Care Team (Late st Contact Info) Description 07/01/2022 Abstract [facility] MEDICINE [address] [place], [place] [phone] Name, MD Kiel [address] [place], [place] [phone] Social History Tobacco Use Types Packs/Day Years [...] Description 11/15/2024 11:30 AM EDT Clinical Support [address] [address] Opal Steiner, RN 11/27/2024 10:30 AM EDT Medication Management [address] [address] Katlyn Rodriguez PharmD [address] [place] [address] documented as of this encounter Visit Diagnoses Not on filedocumented in this encounter Care Teams Technology Advisor Relationship Specialty Start Date End Date Name, MD Kiel [address] [place] [address] PCP - General Family Medicine 07/15/15 Katlyn Rodriguez, PharmD [address] [place] [address] Pharmacist Internal Medicine 10/08/22 Nehal Ann RN [address] [place] [address] Registered Nurse Family Medicine 08/20/24 10/29/24 Ania Spencer 08/20/24 Opal Leyva Registered Nurse 10/29/24 Marta Ovalle Nurse Practitioner Physicians AssistantRhia 05/25/23 documented as of this encounter
--- OUTSIDE RECORDS SUMMARY | 2024-11-05 13:20 | XMS_ITS | Clinical Summary ---
Author Organization [facility] Address [address] [place] [address] Care Team Providers Care Ball Maker Name Role Phone Name, Kiel BAILEY [...] meals: 110-160 Bedtime: 110-150 Use the Results Bring your glucometer to every appointment Write your fingerstick blood sugars down on a log sheet or record book. Bring them to your appointment Look for patterns in the numbers. The [...] year Health Maintenance Due Topic Date Due Diabetes: Annual Care Plan 08/22/1983 Adult Immunization: Tetanus And Diptheria (Td) 1984 Mammogram Age 40 To 49 2005 Pelvic Exam Annually 06/17/2010 Diabetes: Annual Eye Exam 06/19/2011 Spirometry (Breathing Capacity Test) For Copd 06/20/2011 Diabetes: Annual Urine Protein Test (Microalbumin) 07/07/2011 [...] just unsure what to do Educational Resources [place] [employer] Association (www.diabetes.org) Centers for Disease Control [...] leg 09/21 Overview: The patient follows with [facility] and is treated with [...] 91 05/06/2015 10:10 AM EDT Temperature 36.6 C (97.9 F) 05/06/2015 10:10 AM EDT Respiratory Rate 20 05/06/2015 10:10 AM EDT [...] history exists SOCIAL NEEDS SCREENING 02/22/2024 INFLUENZA (#1) 2024 12/10/2014, 10/22, 10/26/2011, Additional history exists PNEUMOCOCCAL VACCINE FOR HIG H RISK PATIENTS (#2) 2030 02/05/2018, 10/03/2013 HEPATITIS C SCREENING Completed 10/10/2013 Care Teams Ball Maker Relationship Specialty Start Date End Date Name, MD Kiel PCP - General Internal Medicine 08/28/15
--- OUTSIDE RECORDS SUMMARY | 2024-11-05 13:20 | XMS_ITS | Encounter Summary ---
Author Organization [employer] Address [address] [place] [address] 7t [place] [address] Care Team Providers Care Nurse Substance Abuse Name Role Phone Name, Kiel BAILEY Primary Care Provider Katlyn Rodriguez PharmD Unavailable Nehal Ann RN Unavailable [phone] Ania Spencer Unavailable Opal Leyva Unavailable [phone] Reason for Visit * Reason Comments Med Refill Encounter Details Date Type Department Care Team (Late st Contact Info) Description 07/02/2022 Refill [facility] MEDICINE [address] [place], [place] [phone] Name, MD Kiel [address] [place], [place] [phone] Chronic pain syndrome Social History Tobacco Use [...] Description 11/15/2024 11:30 AM EDT Clinical Support [address] [address] Opal Steiner, RN 11/27/2024 10:30 AM EDT Medication Management [address] [address] Katlyn Rodriguez PharmD [address] [place] [address] documented as of this encounter Visit Diagnoses Diagnosis Chronic pain syndrome documented in this encounter Care Teams Nurse Substance Abuse Relationship Specialty Start Date End Date Name, MD Kiel [address] [place] [address] PCP - General Family Medicine 07/15/15 Katlyn Rodriguez, PharmD [address] [place] [address] Pharmacist Internal Medicine 10/08/22 Nehal Ann RN [address] [place] [address] Registered Nurse Family Medicine 08/20/24 10/29/24 Ania Spencer 08/20/24 Opal Leyva Registered Nurse 10/29/24 Marta Ovalle Garden Tractor MechanicFire Manager 05/25/23 documented as of this encounter
--- OUTSIDE RECORDS SUMMARY | 2024-11-05 13:20 | XMS_ITS | Encounter Summary ---
Author Organization [employer] Address [address] [facility] 7t [place] [address] Care Team Providers Care Computer Graphics Illustrator Name Role Phone Name, Kiel BAILEY Primary Care Provider Katlyn Rodriguez PharmD Unavailable Nehal Ann RN Unavailable [phone] Ania Spencer Unavailable Opal Leyva Unavailable [phone] Reason for Visit * Reason Comments Med Refill Encounter Details Date Type Department Care Team (Late st Contact Info) Description 06/08/2024 Refill [facility] [address] [place], [place] [phone] Name, MD Kiel [address] [place] [address] Chronic pain syndrome Social History Tobacco Use [...] the past 12 months, has t he [employer], gas, oil or water [employer] threatened to shut off services in your [...] Description 11/15/2024 11:30 AM EDT Clinical Support [facility] MEDICINE [address] [place] [address] Opal Steiner RN 11/27/2024 10:30 AM EDT Medication Management [facility] [address] [place] [address] PuiaReidKatlyn, PharmD [address] [place] [address] documented as of this encounter Goals Goal [...] as of this encounter Care Teams Computer Graphics Illustrator Relationship Specialty Start Date End Date Name, MD Kiel [address] [place], [place] [phone] PCP - General Family Medicine 07/15/15 Katlyn Rdoriguez, PharmD [address] [place] [address] Pharmacist Internal Medicine 10/08/22 Nehal Ann RN [address] [place] [address] Registered Nurse Family Medicine 08/20/24 10/29/24 Ania Spencer 08/20/24 Opal Leyva Registered Nurse 10/29/24 Marta Ovalle Produce AssistantGrey Percher 05/25/23 documented as of this encounter
--- OUTSIDE RECORDS SUMMARY | 2024-11-05 13:20 | XMS_ITS | Encounter Summary ---
Author Organization [employer] Address [address] [place] [address] 7t [place] [address] Care Team Providers Care Bicycle Rental Clerk Name Role Phone Name, Kiel BAILEY Primary Care Provider [phone] Katlyn Rodriguez PharmD Unavailable [phone] Nehal Ann RN Unavailable [phone] Ania Spencer Unavailable Opal Leyva Unavailable [phone] Reason for Visit * Reason Onset Date Comments Medication Problem 08/30/2023 Encounter Details Date Type Department Care Team (Late st Contact Info) Description 08/30/2023 Telephone [facility] MEDICINE [address] [place], [place] [phone] Name, MD Kiel [address] [place], [place] [phone] Medication Problem Social History Tobacco Use Types [...] the past 12 months, has t he [employer] gas, oil or water company threatened to [...] Description 11/15/2024 11:30 AM EDT Clinical Support [facility] [address] [place] [address] Opal Steiner RN 11/27/2024 10:30 AM EDT Medication Management [facility] MED[facility] [address] [place] [address] Puia, Katlyn, PharmD [address] [place] [address] documented as of this encounter Goals Goal [...] documented as of this encounter Care Teams Bicycle Rental Clerk Relationship Specialty Start Date End Date Name, MD Kiel [address] [place] [address] PCP - General Family Medicine 07/15/15 Katlyn Rodriguez, PharmD [address] [place] [address] Pharmacist Internal Medicine 10/08/22 Nehal Ann RN [address] [place] [address] Registered Nurse Family Medicine 08/20/24 10/29/24 Ania Spencer 08/20/24 Opal Leyva Registered Nurse 10/29/24 Marta Ovalle Servomechanism AssemblerFun House Operator 05/25/23 documented as of this encounter
--- OUTSIDE RECORDS SUMMARY | 2024-11-05 13:20 | XMS_ITS | Encounter Summary ---
Author Organization [facility] Address [address] [place] [address] Care Team Providers Care Cook 3 Pastry Name Role Phone Name, Kiel BAILEY Primary Care Provider Unavailabl e Name, Kiel BIALEY Primary Care Provider Unavailabl e Philly Vela DO Primary Care Pro vider Unavailable Name, Kiel BAILEY Primary Care Provider Unavailabl e Encounter Details Date Type Department Care Team Description 06/15/2011 Hotel Or Motel Cleaning Supervisor Report Medical Records [address] [place] [address] Mohini Ellis NP Social History Tobacco Use [...] on filedocumented in this encounter Care Teams Cook 3 Pastry Relationship Specialty Start Date End Date Kiel Shaffer MD PCP - General 05/26/09 04/27/15 Kiel Shaffer MD PCP - General Internal Medicine 04/28/15 05/05/15 Philly Vela DO PCP - General Internal Medicine 05/06/15 08/27/15 Kiel Shaffer MD PCP - General Internal Medicine 08/28/15 documented as of this encounter
--- OUTSIDE RECORDS SUMMARY | 2024-11-05 13:20 | XMS_ITS | Encounter Summary ---
Author Organization [facility] Address [address] [place] [address] Care Team Providers Care Galley Boy Name Role Phone Name, Kiel BAILEY Primary Care Provider Unavailabl e Name, Kiel BAILEY Primary Care Provider Unavailabl e Philly Vela DO Primary Care Pro vider Unavailable Name, Kiel BAILEY Primary Care Provider Unavailabl e Encounter Details Date Type Department Care Team Description 08/18/2011 Hospital Medical Records [address] [place] [address] Hever Bush Social History Tobacco Use Types [...] on filedocumented in this encounter Care Teams Galley Boy Relationship Specialty Start Date End Date Kiel Shaffer MD PCP - General 05/26/09 04/27/15 Kiel Shaffer MD PCP - General Internal Medicine 04/28/15 05/05/15 Philly Vela DO PCP - General Internal Medicine 05/06/15 08/27/15 Kiel Shaffer MD PCP - General Internal Medicine 08/28/15 documented as of this encounter
--- OUTSIDE RECORDS SUMMARY | 2024-11-05 13:20 | XMS_ITS | Encounter Summary ---
Author Organization [employer] Address 75 [facility] 7t [place] [address] Care Team Providers Care Administrative Dietitian Name Role Phone Name, Kiel BAILEY Primary Care Provider [phone] Katlyn Rodriguez PharmD Unavailable [phone] Nehal Ann RN Unavailable [phone] Ania Spencer Unavailable Opal Lyeva Unavailable [phone] Reason for Visit * Reason Comments Med Refill Encounter Details Date Type Department Care Team (Late st Contact Info) Description 09/07/2023 Refill [facility] & PEDS [address] [place], [place] [phone] Name, MD Kiel [address] [place] [address] Type 2 diabetes mellitus with other specified [...] the past 12 months, has t he [email or web address], gas, oil or water company threatened to [...] Description 11/15/2024 11:30 AM EDT Clinical Support [facility] [address] [place] [address] Opal Steiner RN 11/27/2024 10:30 AM EDT Medication Management [facility] [address] [place] [address] PuiaReidKatlyn, PharmD [address] [place] [address] documented as of this encounter Goals Goal [...] documented as of this encounter Care Teams Administrative Dietitian Relationship Specialty Start Date End Date Name, MD Kiel [address] [place] [address] PCP - General Family Medicine 07/15/15 Katlyn Rodriguez PharmD [address] [place] [address] Pharmacist Internal Medicine 10/08/22 Nehal Ann RN [address] [place] [address] Registered Nurse Family Medicine 08/20/24 10/29/24 Ania Spencer 08/20/24 Opal Leyva Registered Nurse 10/29/24 Marta Ovalle Baling Press OperatorOffice Rep 05/25/23 documented as of this encounter
--- OUTSIDE RECORDS SUMMARY | 2024-11-05 13:20 | XMS_ITS | Encounter Summary ---
Author Organization [employer] Address [address] [place] [address] 7t [place] [address] Care Team Providers Care Supervisor Sterile Processing Name Role Phone Name, Kiel BAILEY Primary Care Provider Katlyn Rodriguez PharmD Unavailable [phone] Nehal Ann RN Unavailable [phone] Ania Spencer Unavailable Opal Leyva Unavailable [phone] Encounter Details Date Type Department Care Team (Late st Contact Info) Description 07/01/2022 Abstract [facility] [address] [place], [place] [phone] Name, MD Kiel [address] [place], [place] [phone] Social History Tobacco Use Types Packs/Day Years [...] Description 11/15/2024 11:30 AM EDT Clinical Support [address] [address] Opal Steiner RN 11/27/2024 10:30 AM EDT Medication Management [address] [address] Katlyn Rodriguez PharmD [address] [place] [address] documented as of this encounter Procedures Procedure Name Priority Date/Time Associated Diagnosis Comments COLONOSCOPY Routine 07/01/2022 4:37 PM EDT documented in this encounter Results * Colonoscopy (07/01/2022 4:37 PM EDT) Colonoscopy Normal Normal Narrative Emely Devine - 07/01/2022 4:37 PM EDT [place]commended 5 [place] Historical Provider HEALTH MAINTENANCE Final Result documented in this encounter Visit Diagnoses Not on filedocumented in this encounter Care Teams Supervisor Sterile Processing Relationship Specialty Start Date End Date Name, MD Kiel [address] [place] [address] PCP - General Family Medicine 07/15/15 Katlyn Rodriguez, PharmD [address] [place] [address] Pharmacist Internal Medicine 10/08/22 Nehal Ann, MARINA [address] [place] [address] Registered Nurse Family Medicine 08/20/24 10/29/24 Ania Spencer 08/20/24 Opal Leyva Registered Nurse 10/29/24 Marta Ovalle Sign MaintenanceMachine Stone Polisher Apprentice 05/25/23 documented as of this encounter
--- OUTSIDE RECORDS SUMMARY | 2024-11-05 13:20 | XMS_ITS | Encounter Summary ---
Author Organization [employer] Address [address] [place] [address] 7t [place] [address] Care Team Providers Care Orthotics Assistant Name Role Phone Name, Kiel BAILEY Primary Care Provider Katlyn Rodriguez PharmD Unavailable Nehal Ann RN Unavailable [phone] Ania Spencer Unavailable Opal Leyva Unavailable [phone] Reason for Visit * Reason Comments Med Refill Encounter Details Date Type Department Care Team (Late st Contact Info) Description 07/16/2022 Refill [facility] [address] [place], [place] [phone] Name, MD Kiel 230 [place], [place] [phone] Chronic pain syndrome Social History Tobacco Use [...] Description 11/15/2024 11:30 AM EDT Clinical Support [address] [address] Opal Steiner, RN 11/27/2024 10:30 AM EDT Medication Management [address] [address] Katlyn Rodriguez PharmD [address] [place] [address] documented as of this encounter Visit Diagnoses Diagnosis Chronic pain syndrome documented in this encounter Additional Health Concerns Assessment Noted Time PHQ-9 Depression Total Score: 7 07/15/19 23 2:39 PM EDT documented as of this encounter Care Teams Orthotics Assistant Relationship Specialty Start Date End Date Name, MD Kiel [address] [place] [address] PCP - General Family Medicine 07/15/15 Katlyn Rodriguez PharmD [address] [place] [address] Pharmacist Internal Medicine 10/08/22 Nehal Ann RN [address] [place] [address] Registered Nurse Family Medicine 08/20/24 10/29/24 Ania Spencer 08/20/24 Opal Leyva Registered Nurse 10/29/24 Marta Ovalle Gas DispenserPower Generation Technician 05/25/23 documented as of this encounter
--- OUTSIDE RECORDS SUMMARY | 2024-11-05 13:20 | XMS_ITS | Encounter Summary ---
Author Organization [employer] Address 75 [facility] 7t [place] [address] Care Team Providers Care Travel Administrator Name Role Phone Name, Kiel BAILEY Primary Care Provider [phone] Katlyn Rodriguez PharmD Unavailable [phone] Nehal Ann RN Unavailable [phone] Ania Spencer Unavailable Opal Leyva Unavailable [phone] Reason for Visit * Reason Comments Med Refill Encounter Details Date Type Department Care Team (Late st Contact Info) Description 06/27/2023 Refill [facility] [address] [place], [place] [phone] Katlyn Rodriguez, PharmD [address] [place], [place] [phone] Tobacco use disorder Social History Tobacco Use [...] Description 11/15/2024 11:30 AM EDT Clinical Support [facility] [address] [place] [address] Opal Steiner RN 11/27/2024 10:30 AM EDT Medication Management [facility] [address] [place] [address] Puia, Katlyn, PharmD [address] [place] [address] documented as of this encounter Goals Goal [...] documented as of this encounter Care Teams Travel Administrator Relationship Specialty Start Date End Date Name, MD Kiel [address] [place] [address] PCP - General Family Medicine 07/15/15 Katlyn Rodriguez PharmD [address] [place], [place] [phone] Pharmacist Internal Medicine 10/08/22 Nehal Ann RN [address] [place] [address] Registered Nurse Family Medicine 08/20/24 10/29/24 Ania Spencer 08/20/24 Opal Leyva Registered Nurse 10/29/24 Marta Ovalle Cruller MakerPatient Manager 05/25/23 documented as of this encounter
--- OUTSIDE RECORDS SUMMARY | 2024-11-05 13:20 | XMS_ITS | Encounter Summary ---
Author Organization [facility] Address [address] [place] [address] Care Team Providers Care Contact Center Manager Name Role Phone Name, Kiel BAILEY Primary Care Provider Unavailabl e NameKiel MD Primary Care Provider Unavailabl e Philly Vela DO Primary Care Pro vider Unavailable Name, Kiel BAILEY Primary Care Provider Unavailabl e Encounter Details Date Type Department Care Team Description 11/09/2011 Telephone Adult [address] [address] Kiel Shaffer MD Social History Tobacco Use [...] on filedocumented in this encounter Care Teams Contact Center Manager Relationship Specialty Start Date End Date Kiel Shaffer MD PCP - General 05/26/09 04/27/15 Kiel Shaffer MD PCP - General Internal Medicine 04/28/15 05/05/15 Philly Vela DO PCP - General Internal Medicine 05/06/15 08/27/15 Kiel Shaffer MD PCP - General Internal Medicine 08/28/15 documented as of this encounter
--- OUTSIDE RECORDS SUMMARY | 2024-11-05 13:20 | XMS_ITS | Encounter Summary ---
Author Organization [employer] Address 75 [facility] 7t [place] [address] Care Team Providers Care Quarter Doper Name Role Phone Name, Kiel BAILEY Primary Care Provider Katlyn Rodriguez PharmD Unavailable [phone] Ania Spencer Unavailable Opal Leyva Unavailable [phone] Reason for Visit * Reason Onset Date Comments Results 11/02/2024 Encounter Details Date Type Department Care Team ([facility] st Contact Info) Description 11/02/2024 Results Follow-Up [facility] [address] [place] [address] Sarita Baker MD 230 [place] [address] XR Shoulder 2+ Views Left Social History Tobacco Use Types Packs/Day Years [...] encounter Miscellaneous Notes * Telephone Encounter - Pat Crawford RN - 11/05/2024 11:57 AM EDT TC returned to pt., pt. Handed phone to daughter to interpret. Informed of x-ray results and they had no questions or concerns. They will f/up at recall appt with PCP in Nov or sooner prn * Telephone Encounter - Rosario Phillips - 11/02/2024 2:05 PM EDT Tc from Daughter retuning call * Telephone Encounter - Pat Crawford RN - 11/02/2024 1:31 PM EDT TC placed to pt. At [phone], no answer, left VM requesting call back to Red Team RN upon receipt of message. No one listed on most recent HIPAA- September. Pt. To f/up prn for normal result documented in this encounter Plan of Treatment Upcoming Encounters Date Type Department Care Team (Late st Contact Info) Description 11/15/2024 11:30 AM EDT Clinical Support [address] [address] Opal Steiner RN 11/27/2024 10:30 AM EDT Medication Management [address] [address] Puia, Katlyn, PharmD [address] [place] [address] documented as of this encounter Goals Goal [...] documented as of this encounter Care Teams Quarter Doper Relationship Specialty Start Date End Date Name, MD Kiel [address] [place] [address] PCP - General Family Medicine 07/15/15 Puia, Katlyn, PharmD [address] [place] [address] Pharmacist Internal Medicine 10/08/22 Ania Spencer 08/20/24 Opal Leyva Registered Nurse 10/29/24 Marta Ovalle Roller HelperDural Mechanic 05/25/23 documented as of this encounter
--- OUTSIDE RECORDS SUMMARY | 2024-11-05 13:20 | XMS_ITS | Encounter Summary ---
Author Organization [employer] Address 75 [facility] 7t [place] [address] Care Team Providers Care Deaf/Hard Of Hearing Specialist Name Role Phone Name, Kiel BAILEY Primary Care Provider Katlyn Rodriguez PharmD Unavailable Nehal Ann RN Unavailable [phone] Ania Spencer Unavailable Opal Leyva Unavailable [phone] Reason for Visit * Reason Comments Med Refill Encounter Details Date Type Department Care Team (Late st Contact Info) Description 04/15/2023 Refill [facility] [address] [place], [place] [phone] Yaneth Restrepo FNP [address] [place] [address] Diabetes mellitus type 2 in obese (CMS/HCC) [...] Description 11/15/2024 11:30 AM EDT Clinical Support [facility] [address] [place] [address] Opal Steiner RN 11/27/2024 10:30 AM EDT Medication Management [facility] [address] [place] [address] PuiaKatlyn, PharmD [address] [place] [address] documented as of this encounter Goals Goal [...] documented as of this encounter Care Teams Deaf/Hard Of Hearing Specialist Relationship Specialty Start Date End Date Name, MD Kiel [address] [place] [address] PCP - General Family Medicine 07/15/15 Katlyn Rodriguez, Bin [address] [place] [address] Pharmacist Internal Medicine 10/08/22 Nehal Ann RN [address] [place] [address] Registered Nurse Family Medicine 08/20/24 10/29/24 Ania Spencer 08/20/24 Opal Leyva Registered Nurse 10/29/24 Marta Ovalle Metal PlaterUnderground Distribution Engineer 05/25/23 documented as of this encounter
--- OUTSIDE RECORDS SUMMARY | 2024-11-05 13:20 | XMS_ITS | Encounter Summary ---
Author Organization [employer] Address 75 [facility] 7t [place] [address] Care Team Providers Care Dairy Laboratory Technician Name Role Phone Name, Kiel BAILEY Primary Care Provider [phone] Katlyn Rodriguez PharmD Unavailable [phone] Nehal Ann RN Unavailable [phone] Ania Spencer Unavailable Opal Leyva Unavailable [phone] Encounter Details Date Type Department Care Team (Late Contact Info) Description 03/12/2022 Orders Only [facility] & [facility]EDS [address] [place] [address] Millie Sawant LPN Social History Tobacco Use [...] Description 11/15/2024 11:30 AM EDT Clinical Support [address] [address] Opal Steiner, RN 11/27/2024 10:30 AM EDT Medication Management [address] [address] Katlyn Rodriguez PharmD [address] [place] [address] documented as of this encounter Visit Diagnoses Not on filedocumented in this encounter Care Teams Dairy Laboratory Technician Relationship Specialty Start Date End Date Name, MD Kiel [address] [place] [address] [phone] PCP - General Family Medicine 07/15/15 Katlyn Rodriguez PharmD [address] [place] [address] Pharmacist Internal Medicine 10/08/22 Nehal Ann RN [address] [place] [address] Registered Nurse Family Medicine 08/20/24 10/29/24 Ania Spencer 08/20/24 Opal Leyva Registered Nurse 10/29/24 Marta Ovalle ReweaverProofreader 05/25/23 documented as of this encounter
--- OUTSIDE RECORDS SUMMARY | 2024-11-05 13:20 | XMS_ITS | Encounter Summary ---
Author Organization [employer] Address [address] [place] [address] 7t [place] [address] Care Team Providers Care Parking Ramp Attendant Name Role Phone Name, Kiel BAILEY Primary Care Provider Katlyn Rodriguez PharmD Unavailable [phone] Nehal Ann RN Unavailable [phone] Ania Spencer Unavailable Opal Leyva Unavailable [phone] Reason for Visit * Reason Onset Date Comments Appointment Request 02/29/2024 Encounter Details Date Type Department Care Team ([facility] st Contact Info) Description 02/29/2024 Telephone [facility]INE [address] [place], [place] [phone] Name, MD Kiel [address] [place], [place] [phone] Appointment Request Social History Tobacco Use Types [...] the past 12 months, has t he [employer], gas, oil or water [employer] threatened to shut off services in your [...] different date and time. Pt does speak samoan so you will need an wood coater. documented in this encounter Plan of Treatment Upcoming Encounters Date Type Department Care Team (Late st Contact Info) Description 11/15/2024 11:30 AM EDT Clinical Support [facility] [address] [place] [address] Opal Steiner, MARINA 11/27/2024 10:30 AM EDT Medication Management [facility] [address] [place] [address] Katlyn Rodriguez, Bin [address] [place] [address] documented as of this encounter Goals Goal [...] documented as of this encounter Care Teams Parking Ramp Attendant Relationship Specialty Start Date End Date Name, MD Kiel [address] [place] [address] PCP - General Family Medicine 07/15/15 Puia, Katlyn, PharmD [address] [place] [address] Pharmacist Internal Medicine 10/08/22 Nehal Ann RN [address] [place] [address] Registered Nurse Family Medicine 08/20/24 10/29/24 Ania Spencer 08/20/24 Opal Leyva Registered Nurse 10/29/24 Marta Ovalle Investor Relations CoordinatorFire Assistant 05/25/23 documented as of this encounter
--- OUTSIDE RECORDS SUMMARY | 2024-11-05 13:20 | XMS_ITS | Encounter Summary ---
Author Organization [employer] Address [address] [place] [address] 7t [place] [address] Care Team Providers Care Bowl Topper Name Role Phone Name, Kiel BAILEY Primary Care Provider [phone] Katlyn Rodriguez PharmD Unavailable Nehal Ann RN Unavailable [phone] Ania Spencer Unavailable Opal Leyva Unavailable [phone] Reason for Visit * Reason Comments Med Refill Encounter Details Date Type Department Care Team (Late st Contact Info) Description 02/10/2022 Refill [facility] MED & PEDS [address] [place], [place] [phone] Name, MD Kiel [address] [place] [address] Chronic pain syndrome (Primary Dx) Social History [...] 11/15/2024 11:30 AM EDT Clinical Support [address] [address] Opal Steiner, RN 11/27/2024 10:30 AM EDT Medication Management [address] [address] Katlyn Rodriguez PharmD [address] [place] [address] documented as of this encounter Visit Diagnoses Diagnosis Chronic pain syndrome- Primary documented in this encounter Care Teams Bowl Topper Relationship Specialty Start Date End Date Name, MD Kiel [address] [place] [address] PCP - General Family Medicine 07/15/15 Katlyn Rodriguez, PharmD [address] [place] [address] Pharmacist Internal Medicine 10/08/22 Nehal Ann, MARINA [address] [place] [address] Registered Nurse Family Medicine 08/20/24 10/29/24 Ania Spencer 08/20/24 Opal Leyva Registered Nurse 10/29/24 Marta Ovalle Ticker MaintainerTest Carrier 05/25/23 documented as of this encounter
--- OUTSIDE RECORDS SUMMARY | 2024-11-05 13:20 | XMS_ITS | Encounter Summary ---
Author Organization [employer] Address [address] [place] [address] 7t [place] [address] Care Team Providers Care City Letter Carrier Name Role Phone Name, Kiel BAILEY Primary Care Provider Katlyn Rodriguez PharmD Unavailable [phone] Nehal Ann RN Unavailable [phone] Ania Spencer Unavailable Opal Leyva Unavailable [phone] Encounter Details Date Type Department Care Team ([facility] Contact Info) Description 02/23/2022 Orders Only [facility] [address] [place], [place] [phone] Name, MD Kiel [address] [place] [address] Social History Tobacco Use Types Packs/Day Years [...] Description 11/15/2024 11:30 AM EDT Clinical Support [address] [address] Opal Steiner, RN 11/27/2024 10:30 AM EDT Medication Management [address] [address] Katlyn Rodriguez, PharmD [address] [place] [address] documented as of this encounter Visit Diagnoses Not on filedocumented in this encounter Care Teams City Letter Carrier Relationship Specialty Start Date End Date Name, MD Kiel [address] [place] [address] [phone] PCP - General Family Medicine 07/15/15 Katlyn Rodriguez, PharmD [address] [place] [address] [phone] Pharmacist Internal Medicine 10/08/22 Nehal Ann, MARINA [address] [place] [address] Registered Nurse Family Medicine 08/20/24 10/29/24 Ania Spencer 08/20/24 Opal Leyva Registered Nurse 10/29/24 Marta Ovalle Milk Processing WorkerPest Control Service Technician 05/25/23 documented as of this encounter
--- OUTSIDE RECORDS SUMMARY | 2024-11-05 13:20 | XMS_ITS | Encounter Summary ---
Author Organization [facility] Address [address] [place] [address] Care Team Providers Care Hook Tender Name Role Phone Name, Kiel BAILEY Primary Care Provider [phone] Encounter Details Date Type Department Care Team Description 09/10/2022 Social Work [facility] [address] [place] [address] Adina Archer, [facility] Social History Tobacco Use Types Packs/Day [...] on filedocumented in this encounter Care Teams Hook Tender Relationship Specialty Start Date End Date Name, MD Kiel [address] [place] [address] [address] [place] [address] PCP - General Internal Medicine 04/17/18 documented as of this encounter
--- OUTSIDE RECORDS SUMMARY | 2024-11-05 13:20 | XMS_ITS | Encounter Summary ---
Author Organization [facility] Address [address] [place] [address] Care Team Providers Care Net Developer Architect Name Role Phone Name, Kiel BAILYE Primary Care Provider Unavailabl e Name, Kiel BAILEY Primary Care Provider Unavailabl e Philly Vela DO Primary Care Pro vider Unavailable Name, Kiel BAILEY Primary Care Provider Unavailabl e Encounter Details Date Type Department Care Team Description 05/29/2009 [place] Farmer Report Medical Records [address] [place] [address] Jourdan Irizarry DNP Social History Tobacco Use Types Packs/Day Years Used Date Smoking Tobacco: Never Assessed Sex Assigned at Date Recorded Not on file documented as of this encounter Plan of Treatment Not on file documented as of this encounter Visit Diagnoses Not on filedocumented in this encounter Care Teams Net Developer Architect Relationship Specialty Start Date End Date Kiel Shaffer MD PCP - General 05/26/09 04/27/15 Kiel Shaffer MD PCP - General Internal Medicine 04/28/15 05/05/15 Philly Vela DO PCP - General Internal Medicine 05/06/15 08/27/15 Kiel Shaffer MD PCP - General Internal Medicine 08/28/15 documented as of this encounter
--- OUTSIDE RECORDS SUMMARY | 2024-11-05 13:20 | XMS_ITS | Encounter Summary ---
Author Organization [employer] Address [address] [place] [address] 7[address] [place] [address] Care Team Providers Care Outpatient Dietitian Name Role Phone Name, Kiel BAILEY Primary Care Provider [phone] Katlyn Rodriguez PharmD Unavailable Nehal Ann RN Unavailable [phone] Ania Spencer Unavailable Opal Leyva Unavailable [phone] Reason for Referral * Consultation (Routine) - Closed Specialty Diagnoses / Procedures Referred By Contac t Referred To Contact Physical Therapy Diagnoses Hemiparesis of left dominant side as late effect of cerebral infarction ([facility]/HCC) Kiel Shaffer MD [address] [place] [address] Phone: tel: fax: [facility] Physical Therapy [address] [place] [address] Phone: tel: fax: Referral ID Status Reason Start Date Expiration Date V isits Requested Visits Authorized [id number] Closed Specialty Services Required 10/06/2024 10/06/2025 20 20 Reason for Visit * Reason Onset Date Comments Referral 10/05/2024 Encounter Details Date Type Department Care Team (Late st Contact Info) Description 10/05/2024 Telephone [facility] MEDICINE [address] [place] [address] Kiel Shaffer MD [address] [place], [place] [phone] Referral Social History Tobacco Use Types Packs/Day [...] Miscellaneous Notes * Telephone Encounter - Flora Chrisitanson RN - 10/05/2024 2:14 PM EDT Noted. Thank you! * Telephone Encounter - Flora Christianson RN - 10/05/2024 1:40 PM EDT TC placed to [facility] with [facility] physical therapy regarding referral request. [facility] states they havean order for physical therapy for weakness of both lower extremities. [facility] is requesting the referral be sent to them with MD signature. [facility] states when requesting additional visits through [facility], they are very particular and request MD signature. [facility] provided fax number [phone]. TC placed to [facility] Blue Team child support specialist [facility] for clarification on what is to be done. [facility] states they have not heard of this. [facility] states pt may need new referral as they after 30 days. TC placed to [facility] with [facility] physical therapy for clarification on request. [facility] states they require the referral to be electronically signed or physically signed by an MD. Message forwarded to PCP to review and advise. * Telephone Encounter - Rosario Phillips - 10/05/2024 11:04 AM EDT TC from [facility] with [facility] requesting a new referral for physical therapy with an MD sing Contact pt at [phone] documented in this encounter Plan of Treatment Upcoming Encounters Date Type Department Care Team (Late st Contact Info) Description 11/15/2024 11:30 AM EDT Clinical Support [facility] MEDICINE [address] [place] [address] Opal Stenier RN 11/27/2024 10:30 AM EDT Medication Management [facility] MEDICINE [address] [place] [address] Katlyn Rodriguez, AngieD [address] [place] [address] Scheduled Referrals Name Type Priority Associated Diagnoses [...] documented as of this encounter Care Teams Outpatient Dietitian Relationship Specialty Start Date End Date Name, MD Kiel [address] [place] [address] PCP - General Family Medicine 07/15/15 Puia, Katlyn, PharmD [address] [place] [address] Pharmacist Internal Medicine 10/08/22 Nehal Ann RN [address] [place] [address] Registered Nurse Family Medicine 08/20/24 10/29/24 Ania Spencer 08/20/24 Opal Leyva Registered Nurse 10/29/24 Marta Ovalle Cash Management AssociateDoor To Door Salesman 05/25/23 documented as of this encounter
--- OUTSIDE RECORDS SUMMARY | 2024-11-05 13:20 | XMS_ITS | Encounter Summary ---
Author Organization [employer] Address [address] [place] [address] 7t [place] [address] Care Team Providers Care Medical Technologist Hematology Name Role Phone Name, Kiel BAILEY Primary Care Provider Katlyn Rodriguez PharmD Unavailable Nehal Ann RN Unavailable [phone] Ania Spencer Unavailable Opal Leyva Unavailable [phone] Reason for Visit * Reason Comments Med Refill Encounter Details Date Type Department Care Team (Late st Contact Info) Description 04/25/2022 Refill [facility] MEDICINE [address] [place], [place] [phone] Name, MD Kiel [address] [place], [place] [phone] Diabetes mellitus type 2 in obese (CMS/HCC) [...] Description 11/15/2024 11:30 AM EDT Clinical Support [address] [address] Opal Steiner, MARINA 11/27/2024 10:30 AM EDT Medication Management [address] [address] Katlyn Rodriguez PharmD [address] [place] [address] documented as of this encounter Visit Diagnoses Diagnosis Diabetes mellitus type 2 in obese- Primary Type II or unspecified type diabetes mellitus without mention of complication, not stated as uncontrolled documented in this encounter Care Teams Medical Technologist Hematology Relationship Specialty Start Date End Date Name, MD Kiel [address] [place] [address] PCP - General Family Medicine 07/15/15 Katlyn Rodriguez, PharmD [address] [place] [address] Pharmacist Internal Medicine 10/08/22 Nehal Ann, MARINA [address] [place] [address] Registered Nurse Family Medicine 08/20/24 10/29/24 Ania Spencer 08/20/24 Opal Leyva Registered Nurse 10/29/24 Marta Ovalle Musculoskeletal PhysicianAssembler Surgical Garment 05/25/23 documented as of this encounter
--- OUTSIDE RECORDS SUMMARY | 2024-11-05 13:20 | XMS_ITS | Encounter Summary ---
Author Organization [facility] Address [address] [place] [address] Care Team Providers Care Battery Builder Name Role Phone Name, Kiel BAILEY Primary Care Provider Unavailabl e Name, Kiel BAILEY Primary Care Provider Unavailabl e Philly Vela DO Primary Care Pro vider Unavailable Name, Kiel BAILEY Primary Care Provider Unavailabl e Encounter Details Date Type Department Care Team Description 03/02/2012 Hospital Medical Records [address] [place] [address] Kaylynn Mahmood MD Social History Tobacco Use [...] on filedocumented in this encounter Care Teams Battery Builder Relationship Specialty Start Date End Date Kiel Shaffer MD PCP - General 05/26/09 04/27/15 Kiel Shaffer MD PCP - General Internal Medicine 04/28/15 05/05/15 Philly Vela DO PCP - General Internal Medicine 05/06/15 08/27/15 Kiel Shaffer MD PCP - General Internal Medicine 08/28/15 documented as of this encounter
--- OUTSIDE RECORDS SUMMARY | 2024-11-05 13:20 | XMS_ITS | Encounter Summary ---
Author Organization [facility] Address [address] [place] [address] Care Team Providers Care Metal Solderer Name Role Phone Name, Kiel BAILEY Primary Care Provider Unavailabl e Name, Kiel BAILEY Primary Care Provider Unavailabl e Philly Vela DO Primary Care Pro vider Unavailable Name, Kiel BAILEY Primary Care Provider Unavailabl e Encounter Details Date Type Department Care Team Description 08/15/2011 Hospital Medical Records [address] [place] [address] Dot Cordova Social History Tobacco Use Types [...] on filedocumented in this encounter Care Teams Metal Solderer Relationship Specialty Start Date End Date Kiel Shaffer MD PCP - General 05/26/09 04/27/15 Kiel Shaffer MD PCP - General Internal Medicine 04/28/15 05/05/15 Philly Vela DO PCP - General Internal Medicine 05/06/15 08/27/15 Kiel Shaffer MD PCP - General Internal Medicine 08/28/15 documented as of this encounter
--- OUTSIDE RECORDS SUMMARY | 2024-11-05 13:20 | XMS_ITS | Clinical Summary ---
Author Organization [facility] Address [address] [place] [address] Care Team Providers Care Sand Digger Name Role Phone Name, Kiel BAILEY Primary Care Provider [phone] Allergies Active Allergy Reactions Criticality Noted Date [...] age to complete this topic Care Teams Sand Digger Relationship Specialty Start Date End Date Name, MD Kiel [address] [facility] [address] [place] [address] PCP - General Internal Medicine 04/17/18
--- OUTSIDE RECORDS SUMMARY | 2024-11-05 13:20 | XMS_ITS | Encounter Summary ---
Author Organization [facility] Address [address] [place] [address] Care Team Providers Care Scrap Piler Name Role Phone Name, Kiel BAILEY Primary Care Provider Unavailabl e Name, Kiel BAILEY Primary Care Provider Unavailabl e Philly Vela DO Primary Care Pro vider Unavailable Name, Kiel BAILEY Primary Care Provider Unavailabl e Encounter Details Date Type Department Care Team Description 10/15/2009 Residential Fee Appraiser Report Medical Records [address] [place] [address] Shon Blanca Social History Tobacco Use Types [...] on filedocumented in this encounter Care Teams Scrap Piler Relationship Specialty Start Date End Date Deena, MD Kiel PCP - General 05/26/09 04/27/15 Kiel Shaffer MD PCP - General Internal Medicine 04/28/15 05/05/15 Philly Vela DO PCP - General Internal Medicine 05/06/15 08/27/15 Kiel Shaffer MD PCP - General Internal Medicine 08/28/15 documented as of this encounter
--- OUTSIDE RECORDS SUMMARY | 2024-11-05 13:20 | XMS_ITS | Encounter Summary ---
Author Organization [employer] Address [address] [facility] 7t [place] [address] Care Team Providers Care Entry Level Lab Technician Name Role Phone Name, Kiel BAILEY Primary Care Provider Katlyn Rodriguez PharmD Unavailable [phone] Nehal Ann RN Unavailable [phone] Ania Spencer Unavailable Opal Leyva Unavailable [phone] Reason for Visit * Reason Comments Med Refill Encounter Details Date Type Department Care Team (Late st Contact Info) Description 06/08/[address] [facility] [address] [place], [place] [phone] Name, MD Kiel [address] [place] [address] Chronic pain syndrome Social History Tobacco Use [...] the past 12 months, has t he [employer], gas, oil or water [employer] Player threatened to shut off services in your [...] Description 11/15/2024 11:30 AM EDT Clinical [address] [facility] MEDICINE [address] [place] [address] Opal Steiner RN 11/27/2024 10:30 AM EDT Medication Management [facility] MED[facility]INE [address] [place] [address] PuiaReidKatlyn, PharmD [address] [place] [address] documented as of this encounter Goals Goal [...] documented as of this encounter Care Teams Entry Level Lab Technician Relationship Specialty Start Date End Date Name, MD Kiel [address] [place], [place] [phone] PCP - General Family Medicine 07/15/15 Katlyn Rodriguez, PharmD [address] [place] [address] Pharmacist Internal Medicine 10/08/22 Nehal Ann RN [address] [place] [address] Registered Nurse Family Medicine 08/20/24 10/29/24 Ania Spencer 08/20/24 Opal Leyva Registered Nurse 10/29/24 Marta Ovalle Loss Control EngineerTrouble Shooting Mechanic 05/25/23 documented as of this encounter
--- OUTSIDE RECORDS SUMMARY | 2024-11-05 13:20 | XMS_ITS | Encounter Summary ---
Author Organization [employer] Address [address] [facility] 7t [place] [address] Care Team Providers Care Laborer Egg Producing Farm Name Role Phone Name, Kiel BAILEY Primary Care Provider Katlyn Rodriguez PharmD Unavailable [phone] Nehal Ann RN Unavailable [phone] Ania Spencer Unavailable Opal Leyva Unavailable [phone] Encounter Details Date Type Department Care Team (Late st Contact Info) Description 05/01/2024 Telephone [facility] MEDICINE [address] [place], [place] [phone] Name, MD Kiel [address] [place], [place] [phone] Social History Tobacco Use Types Packs/Day Years [...] Description 11/15/2024 11:30 AM EDT Clinical Support [facility] MEDICINE [address] [place] [address] Opal Steiner RN 11/27/2024 10:30 AM EDT Medication Management [facility] MEDICINE [address] [place] [address] Katlyn Rodriguez PharmD [address] [place] [address] documented as of this encounter Goals Goal [...] documented as of this encounter Care Teams Laborer Egg Producing Farm Relationship Specialty Start Date End Date Name, MD Kiel [address] [place] [address] PCP - General Family Medicine 07/15/15 Puia, Katlyn, PharmD [address] [place] [address] Pharmacist Internal Medicine 10/08/22 Nehal Ann RN [address] [place] [address] Registered Nurse Family Medicine 08/20/24 10/29/24 Ania Spencer 08/20/24 Opal Leyva Registered Nurse 10/29/24 Marta Ovalle Vp Digital MarketingPolice Detention Attendant 05/25/23 documented as of this encounter
--- OUTSIDE RECORDS SUMMARY | 2024-11-05 13:20 | XMS_ITS | Encounter Summary ---
Author Organization [employer] Address [address] [place] [address] 7t [place] [address] Care Team Providers Care Courier Driver Name Role Phone Name, Kiel BAILEY Primary Care Provider Ktalyn Rodriguez PharmD Unavailable [phone] Nehal Ann RN Unavailable [phone] Ania Spencer Unavailable Opal Leyva Unavailable [phone] Reason for Visit * Reason Comments Med Refill Encounter Details Date Type Department Care Team (Late st Contact Info) Description 06/28/2022 Refill [facility] MEDICINE [address] [place], [place] [phone] Name, MD Kiel [address] [place], [place] [phone] Chronic pain syndrome Social History Tobacco Use [...] Description 11/15/2024 11:30 AM EDT Clinical Support [address] [address] Opal Steiner, RN 11/27/2024 10:30 AM EDT Medication Management [address] [address] Katlyn Rodriguez PharmD [address] [place] [address] documented as of this encounter Visit Diagnoses Diagnosis Chronic pain syndrome documented in this encounter Care Teams Courier Driver Relationship Specialty Start Date End Date Name, MD Kiel [address] [place] [address] PCP - General Family Medicine 07/15/15 Katlyn Rodriguez, PharmD [address] [place] [address] Pharmacist Internal Medicine 10/08/22 Nehal Ann RN [address] [place] [address] Registered Nurse Family Medicine 08/20/24 10/29/24 Ania Spencer 08/20/24 Opal Leyva Registered Nurse 10/29/24 Marta Ovalle Team Leader SurgeryVocational Nurse Lvn 05/25/23 documented as of this encounter
--- OUTSIDE RECORDS SUMMARY | 2024-11-05 13:20 | XMS_ITS | Encounter Summary ---
Author Organization [employer] Address [address] [facility] 7t [place] [address] Care Team Providers Care Cigar Packing Examiner Name Role Phone Name, Kiel BAILEY Primary Care Provider Katlyn Rodriguez PharmD Unavailable [phone] Nehal Ann RN Unavailable [phone] Ania Spencer Unavailable Opal Leyva Unavailable [phone] Reason for Visit * Reason Onset Date Comments Reschedule 08/01/2023 Encounter Details Date Type Department Care Team (Late st Contact Info) Description 08/01/2023 Telephone [facility] MEDICINE [address] [place], [place] [phone] Name, MD Kiel [address] [place], [place] [phone] Reschedule Social History Tobacco Use Types Packs/Day [...] 08/01/2023 9:55 AM EDT Triage call with [employer] Hand Etcher Helper ID [id number] . Pt reports Covid + test this [...] 08/01/2023 9:04 AM EDT Patient cancelled todays [employer] UNIFIED COMMUNICATIONS ENGINEER RV appt today. Pt's [employer] UNIFIED COMMUNICATIONS ENGINEER appt has been rescheduled for chronic pain [...] AM EDT Tc from pt requesting r/s [employer]ISCO UNIFIED COMMUNICATIONS ENGINEER appt, stated is sick and suspect is COVID documented in this encounter Plan of Treatment Upcoming Encounters Date Type Department Care Team (Late st Contact Info) Description 11/15/2024 11:30 AM EDT Clinical Support [facility] MEDICINE [address] [place] [address] Opal Steiner, MARINA 11/27/2024 10:30 AM EDT Medication Management [facility] MEDICINE [address] [place] [address] Katlyn Rodriguez, PharmD [address] [place] [address] documented as of this encounter Goals Goal [...] documented as of this encounter Care Teams Cigar Packing Examiner Relationship Specialty Start Date End Date Name, MD Kiel [address] [place] [address] PCP - General Family Medicine 07/15/15 Puia, Katlyn, PharmD [address] [place] [address] Pharmacist Internal Medicine 10/08/22 Nehal Ann RN [address] [place] [address] Registered Nurse Family Medicine 08/20/24 10/29/24 Ania Spencer 08/20/24 Opal Leyva Registered Nurse 10/29/24 Marta Ovalle Securities TellerCatering And Events Manager 05/25/23 documented as of this encounter
--- OUTSIDE RECORDS SUMMARY | 2024-11-05 13:20 | XMS_ITS ---
Author Organization [employer] Address [address] [place] [address] 7t [place] [address] Care Team Providers Care Insights Strategist Name Role Phone Name, Kiel BAILEY Primary Care Provider Katlyn Rodriguez PharmD Unavailable Ania Spencer Unavailable Opal Leyva Unavailable [phone] Complex Status:Enrolled (Active) Start date:08/20/2024 Enrollment date:09/04/2024 Enrollment reason:ADT Feed Overview ED- Pt went to [facility] ED on 08/17/24. Case Team Name Relationship Phone Opal Leyva(Responsible Staff) Registered Nurse [phone] Continued Care and Services Coordination
--- OUTSIDE RECORDS SUMMARY | 2024-11-05 13:20 | XMS_ITS ---
Author Organization [employer] Address [address] [place] [address] 7t [place] [address] Care Team Providers Care Glass Sander Name Role Phone Name, Kiel BAILEY Primary Care Provider [phone] Katlyn Rodriguez PharmD Unavailable Ania Spencer Unavailable Opal Leyva Unavailable [phone] [phone] Complex Status:Outreach In Progress (Enrolling) Start date:08/20/2024 Enrollment reason:ADT Feed Overview ED- Pt went to [facility] ED on 08/17/24. Case Team Name Relationship Phone Ania Spencer(Responsible Staff) [phone] Continued Care and Services Coordination
--- OUTSIDE RECORDS SUMMARY | 2024-11-05 13:21 | XMS_ITS | Encounter Summary ---
Author Organization [facility] Address [address] [place] [address] Care Team Providers Care Consumer Electronics Merchandiser Name Role Phone Name, Kiel BAILEY Primary Care Provider Unavailabl e Name, Kiel BAILEY Primary Care Provider Unavailabl e Philly Vela DO Primary Care Pro vider Unavailable Name, Kiel BAILEY Primary Care Provider Unavailabl e Encounter Details Date Type Department Care Team Description 05/04/2011 Tag Writer Report Medical Records [address] [place] [address] Mohini Ellis NP Social History Tobacco Use [...] on filedocumented in this encounter Care Teams Consumer Electronics Merchandiser Relationship Specialty Start Date End Date Kiel Shaffer MD PCP - General 05/26/09 04/27/15 Kiel Shaffer MD PCP - General Internal Medicine 04/28/15 05/05/15 Philly Vela DO PCP - General Internal Medicine 05/06/15 08/27/15 Kiel Shaffer MD PCP - General Internal Medicine 08/28/15 documented as of this encounter
--- OUTSIDE RECORDS SUMMARY | 2024-11-05 13:21 | XMS_ITS | Encounter Summary ---
Author Organization [facility] Address [address] [place] [address] Care Team Providers Care Windshield Technician Name Role Phone Philly Vela DO Primary Care Pro vider Unavailable NameKiel MD Primary Care Provider Unavailabl e Encounter Details Date Type Department Care Team Description 08/05/2015 Release of Information Medical Records [address] [place] [address] Abstract, Provider Social History Tobacco Use Types [...] on filedocumented in this encounter Care Teams Windshield Technician Relationship Specialty Start Date End Date Philly Vela DO PCP - General Internal Medicine 05/06/15 08/27/15 Kiel Shaffer MD PCP - General Internal Medicine 08/28/15 documented as of this encounter
--- OUTSIDE RECORDS SUMMARY | 2024-11-05 13:21 | XMS_ITS | Encounter Summary ---
Author Organization [facility] Address [address] [place] [address] Care Team Providers Care Telemetry Rn Name Role Phone Name, Kiel BAILEY Primary Care Provider Unavailabl e Name, Kiel BAILEY Primary Care Provider Unavailabl e Philly Vela DO Primary Care Pro vider Unavailable Name, Kiel BAILEY Primary Care Provider Unavailabl e Encounter Details Date Type Department Care Team Description 08/13/2011 Hospital Medical Records [address] [place] [address] Marcia Wan MD Social History Tobacco Use [...] on filedocumented in this encounter Care Teams Telemetry Rn Relationship Specialty Start Date End Date Kiel Shaffer MD PCP - General 05/26/09 04/27/15 Kiel Shaffer MD PCP - General Internal Medicine 04/28/15 05/05/15 Philly Vela DO PCP - General Internal Medicine 05/06/15 08/27/15 Kiel Shaffer MD PCP - General Internal Medicine 08/28/15 documented as of this encounter
--- OUTSIDE RECORDS SUMMARY | 2024-11-05 13:21 | XMS_ITS | Encounter Summary ---
Author Organization [employer] Address [address] [place] [address] 7t [place] [address] Care Team Providers Care Basting Puller Name Role Phone Name, Kiel BAILEY Primary Care Provider [phone] Katlyn Rodriguez PharmD Unavailable [phone] Nehal Ann RN Unavailable [phone] Ania Spencer Unavailable Opal Leyva Unavailable [phone] Encounter Details Date Type Department Care Team (Late st Contact Info) Description 08/26/2022 Orders Only [facility] MEDICINE [address] [place] [address] Leia Gonzales LPN Social History Tobacco Use [...] Description 11/15/2024 11:30 AM EDT Clinical Support [address] [address] Opal Steiner, RN 11/27/2024 10:30 AM EDT Medication Management [address] [address] Katlyn Rodriguez PharmD [address] [place] [address] documented as of this encounter Visit Diagnoses Not on filedocumented in this encounter Additional Health Concerns Assessment Noted Time PHQ-9 Depression Total Score: 7 07/15/19 2:39 PM EDT documented as of this encounter Care Teams Basting Puller Relationship Specialty Start Date End Date Name, MD Kiel [address] [place] [address] PCP - General Family Medicine 07/15/15 Katlyn Rodriguez, PharmD [address] [place] [address] Pharmacist Internal Medicine 10/08/22 Nehal Ann, MARINA [address] [place] [address] Registered Nurse Family Medicine 08/20/24 10/29/24 Ania Spencer 08/20/24 Oapl Leyva Registered Nurse 10/29/24 Marta Ovalle Process Manufacturing EngineerGardener Florist 05/25/23 documented as of this encounter
--- OUTSIDE RECORDS SUMMARY | 2024-11-05 13:21 | XMS_ITS | Encounter Summary ---
Author Organization [facility] Address [address] [place] [address] Care Team Providers Care Medical Sales Name Role Phone NameKiel MD Primary Care Provider Unavailabl e Encounter Details Date Type Department Care Team Description 01/13/2021 Orders Only Cardio PVCA Diag Testing [address] [place] [address] [place] [address] Doreen Villatoro PA Chest pain, unspecified type [...] Primary documented in this encounter Care Teams Medical Sales Relationship Specialty Start Date End Date Name, MD Kiel PCP - General Internal Medicine 08/28/15 documented as of this encounter
--- OUTSIDE RECORDS SUMMARY | 2024-11-05 13:21 | XMS_ITS | Encounter Summary ---
Author Organization [facility] Address [address] [place] [address] Care Team Providers Care Bean Snapper Name Role Phone Name, Kiel BAILEY Primary Care Provider Unavailabl e Name, Kiel BAILEY Primary Care Provider Unavailabl e Philly Vela DO Primary Care Pro vider Unavailable Name, Kiel BAILEY Primary Care Provider Unavailabl e Reason for Visit * Reason Onset Date Comments Follow-up Appt Unavailable 08/19/2011 Encounter Details Date Type Department Care Team Description 08/19/2011 Telephone Adult Medicine [address] [address] Name, MD Kiel Follow-up Appt Unavailable Social [...] admitted 1week PCP: Kiel Santiago MD [place]or: [facility] [place] [email or web address] Plan: FFS HMO $0 [employer] [id number] Product Type: MEDICAID RISK documented in this encounter Plan of Treatment Not on file documented as of this encounter Visit Diagnoses Not on filedocumented in this encounter Care Teams Bean Snapper Relationship Specialty Start Date End Date Kiel Santiago MD PCP - General 05/26/09 04/27/15 Kiel Santiago MD PCP - General Internal Medicine 04/28/15 05/05/15 Philly Vela DO PCP - General Internal Medicine 05/06/15 08/27/15 Kiel Santiago MD PCP - General Internal Medicine 08/28/15 documented as of this encounter
--- OUTSIDE RECORDS SUMMARY | 2024-11-05 13:21 | XMS_ITS | Encounter Summary ---
Author Organization [facility] Address [address] [place] [address] Care Team Providers Care Welder Railcar Mechanic Name Role Phone NameKiel MD Primary Care Provider Unavailabl e Encounter Details Date Type Department Care Team Description 12/12/2015 Transfer Records Medical Records [address] [place] [address] Balaji Johnson DO Social History Tobacco Use [...] on filedocumented in this encounter Care Teams Welder Railcar Mechanic Relationship Specialty Start Date End Date Name, MD Kiel PCP - General Internal Medicine 08/28/15 documented as of this encounter
--- OUTSIDE RECORDS SUMMARY | 2024-11-05 13:21 | XMS_ITS | Encounter Summary ---
Author Organization [facility] Address [address] [place] [address] Care Team Providers Care Trade Mark Examiner Name Role Phone Name, Kiel BAILEY Primary Care Provider Unavailabl e Name, Kiel BAILEY Primary Care Provider Unavailabl e Philly Vela DO Primary Care Pro vider Unavailable Name, Kiel BAILEY Primary Care Provider Unavailabl e Encounter Details Date Type Department Care Team Description 10/03/2014 Hospital Medical Records [address] [place] [id number] Randall Garcia MD Social History Tobacco Use [...] on filedocumented in this encounter Care Teams Trade Mark Examiner Relationship Specialty Start Date End Date Kiel Shaffer MD PCP - General 05/26/09 04/27/15 Kiel Shaffer MD PCP - General Internal Medicine 04/28/15 05/05/15 Philly Vela DO PCP - General Internal Medicine 05/06/15 08/27/15 Kiel Shaffer MD PCP - General Internal Medicine 08/28/15 documented as of this encounter
--- OUTSIDE RECORDS SUMMARY | 2024-11-05 13:21 | XMS_ITS | Encounter Summary ---
[facility] Address [address] [place] [address] Care Team Providers Care Insulating Machine Operator Name Role Phone Name, Kiel BAILEY Primary Care Provider Unavailabl e Name, Kiel BAILEY Primary Care Provider Unavailabl e Philly Vela DO Primary Care Pro vider Unavailable Name, Kiel BAILEY Primary Care Provider Unavailabl e Encounter Details Date Type Department Care Team Description 03/30/2011 Chisel Trimmer Report Medical Records [address] [place] [address] Mohini Ellis NP Social History Tobacco Use [...] on filedocumented in this encounter Care Teams Insulating Machine Operator Relationship Specialty Start Date End Date Kiel Shaffer MD PCP - General 05/26/09 04/27/15 Kiel Shaffer MD PCP - General Internal Medicine 04/28/15 05/05/15 Philly Vela DO PCP - General Internal Medicine 05/06/15 08/27/15 Kiel Shaffer MD PCP - General Internal Medicine 08/28/15 documented as of this encounter
--- OUTSIDE RECORDS SUMMARY | 2024-11-05 13:21 | XMS_ITS | Encounter Summary ---
[facility] Organization [facility] Address [address] [place] [address] Care Team Providers Care Drivability Technician Name Role Phone Name, Kiel BALIEY Primary Care Provider Unavailabl e Name, Kiel BAILEY Primary Care Provider Unavailabl e Philly Vela DO Primary Care Pro vider Unavailable Name, Kiel BAILEY Primary Care Provider Unavailabl e Encounter Details Date Type Department Care Team Description 02/11/2011 Field Machinist Report Medical Records [address] [place] [address] Quinton Luther Social History Tobacco Use Types [...] on filedocumented in this encounter Care Teams Drivability Technician Relationship Specialty Start Date End Date Kiel Shaffer MD PCP - General 05/26/09 04/27/15 Kiel Shaffer MD PCP - General Internal Medicine 04/28/15 05/05/15 Philly Vela DO PCP - General Internal Medicine 05/06/15 08/27/15 Kiel Shaffer MD PCP - General Internal Medicine 08/28/15 documented as of this encounter
--- OUTSIDE RECORDS SUMMARY | 2024-11-05 13:21 | XMS_ITS | Encounter Summary ---
Author Organization [employer] Address [address] [facility] 7t [place] [address] Care Team Providers Care Organic Preparation Analyst Name Role Phone Name, Kiel BAILEY Primary Care Provider [phone] Katlyn Rodriguez PharmD Unavailable [phone] Nehal Ann RN Unavailable [phone] Ania Spencer Unavailable Opal Leyva Unavailable [phone] Encounter Details Date Type Department Care Team (Late st Contact Info) Description 02/20/2024 Telephone [facility] [address] [place] [address] Name, MD Kiel [address] [place] [address] Social History Tobacco Use Types Packs/Day Years [...] 11/15/2024 11:30 AM EDT Clinical Support [facility] [address] [place] [address] Opal Steiner RN 11/27/2024 10:30 AM EDT Medication Management [facility] [address] [place] [address] Puia, Katlyn, PharmD [address] [place] [address] documented as of this encounter Goals Goal [...] documented as of this encounter Care Teams Organic Preparation Analyst Relationship Specialty Start Date End Date Name, MD Kiel [address] [place] [address] PCP - General Family Medicine 07/15/15 Ktalyn Rodriguez PharmD [address] [place] [address] Pharmacist Internal Medicine 10/08/22 Nehal Ann RN [address] [place] [id number] Registered Nurse Family Medicine 08/20/24 10/29/24 Ania Spencer 08/20/24 Opal Leyva Registered Nurse 10/29/24 Marta Ovalle Clinical Account LiaisonWarehouse Distribution Associate 05/25/23 documented as of this encounter
--- OUTSIDE RECORDS SUMMARY | 2024-11-05 13:21 | XMS_ITS | Encounter Summary ---
Author Organization [facility] Address [address] [place] [address] Care Team Providers Care Supervisor Bindery Name Role Phone Name, Kiel BAILEY Primary Care Provider Unavailabl e Name, Kiel BAILEY Primary Care Provider Unavailabl e Philly Vela DO Primary Care Pro vider Unavailable Name, Kiel BAILEY Primary Care Provider Unavailabl e Encounter Details Date Type Department Care Team Description 01/14/2011 Hospital Medical Records [address] [place] [address] Ania Reid Social History Tobacco Use Types [...] filedocumented in this encounter Care Teams Supervisor Bindery Relationship Specialty Start Date End Date Kiel Shaffer MD PCP - General 05/26/09 04/27/15 Kiel Shaffer MD PCP - General Internal Medicine 04/28/15 05/05/15 Philly Vela DO PCP - General Internal Medicine 05/06/15 08/27/15 Kiel Shaffer MD PCP - General Internal Medicine 08/28/15 documented as of this encounter
--- OUTSIDE RECORDS SUMMARY | 2024-11-05 13:21 | XMS_ITS | Encounter Summary ---
Author Organization [facility] Address [address] [place] [address] Care Team Providers Care Telecom Network Manager Name Role Phone Name, Kiel BAILEY Primary Care Provider Unavailabl e Name, Kiel BAILEY Primary Care Provider Unavailabl e Philly Vela DO Primary Care Pro vider Unavailable Name, iKel BAILEY Primary Care Provider Unavailabl e Encounter Details Date Type Department Care Team Description 12/04/2014 Hospital Medical Records [address] [place] [address] Josh Martinez NP [address] [place] [address] Social History Tobacco Use Types Packs/Day Years [...] on filedocumented in this encounter Care Teams Telecom Network Manager Relationship Specialty Start Date End Date Kiel Shaffer MD PCP - General 05/26/09 04/27/15 Kiel Shaffer MD PCP - General Internal Medicine 04/28/15 05/05/15 Philly Vela DO PCP - General Internal Medicine 05/06/15 08/27/15 Kiel Shaffer MD PCP - General Internal Medicine 08/28/15 documented as of this encounter
--- OUTSIDE RECORDS SUMMARY | 2024-11-05 13:21 | XMS_ITS | Encounter Summary ---
Author Organization [facility] Address [address] [place] [address] Care Team Providers Care Programming Development Project Manager Name Role Phone Name, Kiel BAILEY Primary Care Provider Unavailabl e Name, Kiel BAILEY Primary Care Provider Unavailabl e Philly Vela DO Primary Care Pro vider Unavailable Name, Kiel BAILEY Primary Care Provider Unavailabl e Encounter Details Date Type Department Care Team Description 09/09/2011 Spray Unit Feeder Report Medical Records [address] [place] [address] Quinton Luther Social History Tobacco Use Types [...] on filedocumented in this encounter Care Teams Programming Development Project Manager Relationship Specialty Start Date End Date Kiel Shaffer MD PCP - General 05/26/09 04/27/15 Kiel Shaffer MD PCP - General Internal Medicine 04/28/15 05/05/15 Philly Vela DO PCP - General Internal Medicine 05/06/15 08/27/15 Kiel Shafefr MD PCP - General Internal Medicine 08/28/15 documented as of this encounter
--- OUTSIDE RECORDS SUMMARY | 2024-11-05 13:21 | XMS_ITS | Clinical Summary ---
Author Organization [facility] Address [address] [place] [address] Phone Care Team Providers Care Shirring Tender Name Role Phone Name, Kiel BAILEY Primary Care Provider [phone] Allergies Active Allergy Reactions Criticality Noted Date [...] Problem Noted Date Diagnosed Date COPD exacerbation ([facility] V24, [facility] V28) Abnormal nuclear stress test 11/06/2014 Rib fracture 12/24/2013 Overview (12/12/2023): Non displaced, probable froacture on the right ninth and tenth Abdominal pain 08/15/2013 Lipoma of abdominal wall 11/02/2011 Visual field defect 03/29/2011 Cocaine abuse, episodic use ([facility] V24, [facility] V28) 06/17/2010 Low back pain radiating to left leg 10/08/2009 Overview (12/12/2023): The patient follows with [facility] and is treated with injections to the LS. Asthmatic bronchitis , chronic ([facility] [place], [facility] V28) 07/07/2009 Overview (12/12/2023): Severe and worse in the spring. Last hospitalazion in May and 3 ER visits Hospital 08/02 Known medical problems 06/05/2009 Tobacco use disorder 06/05/2009 Hypertriglyceridemia 06/05/2009 Morbid obesity ([facility] V24, [facility] V28) 2009 Overview (12/12/2023): BMI 48.37 on 11/15/13 Depression 06/05/2009 Encounters Date Type Department Care Team Description 08/27/2024 9:45 AM EDT Office Visit [facility] [place] [address] [place] [phone] Wesley Garcia, DPM Dermatophytosis of nail (Primary Dx); Pain in toe of right foot; Pain in toe of left foot; Diabetic mononeuropathy simplex ([facility] V24, [facility] V28); Tinea pedis of both feet from [...] TOTAL HYSTERECTOMY WITH BSO; COMMENT: for bleeding, [facility] Medical History Medical History Date Comments Type II or unspecified type diabetes mellitus with unspecified complication, not stated as uncontrolled DX:Type II or unspecified t ype diabetes mellitus with unspecified complication, not stated as uncontrolled Unspecified essential hypertension DX:Unspecified essential hypertension Tobacco abuse DX:Tobacco abuse RAD (reactive airway disease) DX :RAD (reactive airway disease) Morbid obesity ([facility] V24, [facility] V28) DX:Morbid obesity ([facility]) Asthmatic bronchitis , chron ic ([facility] V24, [facility] V28) 07/07/2009 DX:Asthmatic bronchitis , ch ronic ([facility]) Hypertriglyceridemia 06/05/2009 DX:Hypertri glyceridemia Rib fracture 12/24/2013 DX:Rib fracture Family History Medical History Relation Name Comments Blindness Brother 1 Breast cancer Maternal Grandmother Cataracts Maternal Grandmother Blindness Mother Glaucoma Neg Hx Macular degeneration Neg Hx Strabismus Neg Hx Relation Name Status Comments Brother 1 Brother 2 [place] Brother 3 Alive 6 brothers are diabetic [...] AM EDT Office Visit [facility] [place] [address] [facility] [address] [place] [address] Wesley Garcia, DPM [address] [address] Health Maintenance Due Date Last [...] R esult [facility] [address] [place] [address], * (ABNORMAL) Hemoglobin A1c (11/20/2014) Hemoglobin A1C 7.5(A) 4.0 - 6.0 % Blood Venous blood specimen / Unknown Historical Provider LAB BLOOD ORDERABLES Alis l Result * HM Urine Albumin Creatinine Ratio (05/10/2014) Pathologist [facility] Urine Albumin Creatinine Ratio abstracted Historical Provider HEALTH MAINTENANCE Final Result * (ABNORMAL) Lipid panel (05/10/2014) [facility] LDL/HDL Ratio 4 0 - 4 Triglycerides 360(A) 0 - 150 mg/dL Cholesterol 179 0 - 200 mg/dL HDL 42 >=40 mg/dL LDL Cholesterol 65 0 - 100 mg/dL Blood Venous blood specimen / Unknown [facility] Provider LAB BLOOD ORDERABLES Alis l Result * Hepatitis C Screening (10/10/2013) [facility] Hepatitis C Screening abstracted [facility] Provider HEALTH MAINTENANCE Final Result [...] currently active code status orders. Care Teams Shirring Tender Relationship Specialty Start Date End Date Name, MD Kiel [address] [place], [place] PCP - General Internal Medicine 08/28/15
--- OUTSIDE RECORDS SUMMARY | 2024-11-05 13:22 | XMS_ITS | Encounter Summary ---
Author Organization [facility] Address [address] [facility] [address] [place] [address] Phone Care Team Providers Care Manager Of Employee Relations Name Role Phone Unavailable Primary Care Provider Unavailabl e Encounter Details Date Type Department Care Team (Latest Contact Info) Description 01/04/2020 Ancillary Orders [facility] [address] [place] [address] [place] [address] Bright Jesus, DO [address] [place] [address] Chest pain, unspecified type Social History Tobacco [...] It is not the complete legal health record.[facility]
--- OUTSIDE RECORDS SUMMARY | 2024-11-05 13:22 | XMS_ITS | Encounter Summary ---
Author Organization [facility] Address [address] [place] [address] Care Team Providers Care Game Tester Name Role Phone Name, Kiel BAILEY Primary Care Provider Unavailabl e Name, Kiel BAILEY Primary Care Provider Unavailabl e Philly Vela DO Primary Care Pro vider Unavailable Name, Kiel BAILEY Primary Care Provider Unavailabl e Encounter Details Date Type Department Care Team Description 02/25/2013 Hospital Medical Records [address] [place] [address] Gaviota Moody MD Social History Tobacco Use [...] filedocumented in this encounter Care Teams Game Tester Relationship Specialty Start Date End Date Kiel Shaffer MD PCP - General 05/26/09 04/27/15 Kiel Shaffer MD PCP - General Internal Medicine 04/28/15 05/05/15 Philly Vela DO PCP - General Internal Medicine 05/06/15 08/27/15 Kiel Shaffer MD PCP - General Internal Medicine 08/28/15 documented as of this encounter
--- OUTSIDE RECORDS SUMMARY | 2024-11-05 13:22 | XMS_ITS | Encounter Summary ---
Author Organization [facility] Address [address] [place] [address] Care Team Providers Care Strain Technician Name Role Phone Name, Kiel BAILEY Primary Care Provider Unavailabl e Name, Kiel BAILEY Primary Care Provider Unavailabl e Philly Vela DO Primary Care Pro vider Unavailable Name, Kiel BAILEY Primary Care Provider Unavailabl e Encounter Details Date Type Department Care Team Description 11/12/2009 Controlled Substance Contract with Plan Medical Records [address] [place] [address] Abstract, Provider Social History Tobacco Use Types [...] on filedocumented in this encounter Care Teams Strain Technician Relationship Specialty Start Date End Date Kiel Shaffer MD PCP - General 05/26/09 04/27/15 Kiel Shaffer MD PCP - General Internal Medicine 04/28/15 05/05/15 Philly Vela DO PCP - General Internal Medicine 05/06/15 08/27/15 Kiel Shaffer MD PCP - General Internal Medicine 08/28/15 documented as of this encounter
--- OUTSIDE RECORDS SUMMARY | 2024-11-05 13:22 | XMS_ITS | Encounter Summary ---
Author Organization [employer] Address [address] [place] [address] [address] [place] [address] Care Team Providers Care Liquid Loader Name Role Phone Name, Kiel BAILEY Primary Care Provider [phone] Katlyn Rodriguez PharmD Unavailable [phone] Nehal Ann RN Unavailable [phone] Ania Spencer Unavailable Opal Leyva Unavailable [phone] Reason for Visit * Reason Onset Date Comments FYI 08/03/2024 Encounter Details Date Type Department Care Team (Late st Contact Info) Description 08/03/2024 Telephone [facility] [address] [place], [place] [phone] Name, MD Kiel [address] [place], [place] [phone] FYI Social History Tobacco Use Types Packs/Day [...] - 08/03/2024 2:00 PM EDT Tc from [facility] with N stating pt has an upcoming appointment with pcp and would like to report: 1) Pt was discharged yesterday 08/02. Reason: COPD. 2) F/u Left ear symptoms. Pt unable to hear. 3) F/u pull up prescription. Any questions contact [facility] [phone] documented in this encounter Plan of Treatment Upcoming Encounters Date Type Department Care Team (Late st Contact Info) Description 11/15/2024 11:30 AM EDT Clinical Support [address] [phone] Opal Steiner RN 11/27/2024 10:30 AM EDT Medication Management [address] [phone] Puia, Katlyn, PharmD [address] [place] [address] documented as of this encounter Goals Goal [...] documented as of this encounter Care Teams Liquid Loader Relationship Specialty Start Date End Date Name, MD Kiel [address] [place] [address] PCP - General Family Medicine 07/15/15 Puia, Katlyn, PharmD [address] [place] [address] Pharmacist Internal Medicine 10/08/22 Nehal Ann, MARINA [address] [place] [address] Registered Nurse Family Medicine 08/20/24 10/29/24 nAia Spencer 08/20/24 Opal Leyva Registered Nurse 10/29/24 Marta Ovalle Chairman & Chief Executive OfficerCookie Breaker 05/25/23 documented as of this encounter
--- OUTSIDE RECORDS SUMMARY | 2024-11-05 13:22 | XMS_ITS | Clinical Summary ---
Author Organization [facility] Address [address] [place] [address] [place] [address] Phone Care Team Providers Care Stone Rubber Name Role Phone Unavailable Primary Care Provider [...] Devices Not on file Insurance [employer] [place] [address] [place] [address] [place] [address] [place] [address] [place] [address] [place] [address] [place] [address] [place] [address] [employer] Additional Source Comments The information contained in this document represents components of the legal health record. It is not the complete legal health record.[facility]
--- OUTSIDE RECORDS SUMMARY | 2024-11-05 13:22 | XMS_ITS | Clinical Summary ---
Author Organization [employer] Address [address] [place] [address] 7[address] [place] [address] Care Team Providers Care Magazine Writer Name Role Phone Name, Kiel BAILEY Primary Care Provider [phone] Katlyn Rodriguez PharmD Unavailable [phone] Ania Spencer Unavailable Opal Leyva Unavailable [phone] Allergies Active Allergy Reactions Criticality Noted [...] complication, with long-term current use of insulin ([facility]),Hyper triglyceridemia Take 2 capsules (2 g) [...] complication, with long-term current use of insulin ([facility]) Inject 15 mg under the skin 1 (one) time per week. 2 mL 06/08/19 25 Active ezetimibe (Zetia) 10 MG tabletIndicatio ns:Type 2 diabetes mellitus with other specified complication, with long-term current use of insulin ([facility]) TAKE 1 TABLET BY MOUTH EVERY [...] complication, with long-term current use of insulin ([facility]),Histo ry of stroke,Tobacco use disorder,Hypert riglyceridemia [...] complication, with long-term current use of insulin ([facility]) Chew 1 tablet (81 mg) in the evening. 90 tablet 08/23/19 25 Active metFORMIN XR (Glucophage-XR) 500 MG 24 hr tabletIndicatio ns:Type 2 diabetes mellitus with obesity (CMS/HCC) ([facility]) Take 1 tablet (500 mg) by mouth at bedtime. 90 tablet 3 08/23/19 25 Active losartan (Cozaar) 50 MG tabletIndicatio ns:Essential hypertension TAKE 1 TABLET BY MOUTH EVERY MORNING 90 tablet 09/13/19 25 Active meloxicam (Mobic) 7.5 MG tablet TAKE 1 TABLET BY MOUTH ONCE DAILY 30 tablet 09/13/19 25 Active TechLite Pen [place] 32G X 4 MM miscIndications :Type 2 diabetes mellitus with other specified complication ([facility]) USE DIRECTED FOUR TIMES DAILY 100 each 09/29/19 25 Active Blood Glucose Monitoring Suppl (FreeStyle Lite) deviceIndicatio ns:Type 2 diabetes mellitus with other specified complication, with long-term current use of insulin ([facility]) Inject 1 each under the skin 2 times daily. Use to test blood sugar as directed 1 each 10/03/19 25 Active glucose blood (FREESTYLE LITE) test stripIndication s:Type 2 diabetes mellitus with other specified complication, with long-term current use of insulin ([facility]) Use to test blood sugar 2 times daily 50 strip 10/03/19 25 Active TRUEplus Lancets 33G miscIndications :Type 2 diabetes mellitus with other specified complication, with long-term current use of insulin ([facility]) Use to test blood sugar twice [...] complication, with long-term current use of insulin ([facility]) Inject 44 Units under the skin [...] complication, with long-term current use of insulin ([facility]) Inject 40 Units under the skin [...] to the hospital Case was presented to [facility] emergency room Hemiparesis of left dominant side 08/11/2024 Assessment & Plan (08/17/2024 1:36 PM EDT): Patient will benefit from PT evaluation and after evaluation at the hospital to be referred to acute PT center Cerebrovascular accident (CVA) 08/11/2024 History of stroke 07/30/2024 Cerebellar mass 06/28/2024 Chronic, continuous use of opioids 11/29/2023 Overview (11/29/2023): Dx: OA knee Tx: oxycodone 10mg BID 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 last 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: 05/03/23 Chronic pain syndrome 05/03/2023 [...] PM EST): I presented the case to [facility] emergency room, patient will go by ambulance [...] tolerate CPAP On nocturnal oxygen Follows with [facility] pulmonary ([place]riana) Cocaine abuse, episodic use 06/17/2010 [...] for Paxlovid sent to the pharmacy -Utilized [place] drug interaction machine stoppage frequency checker to assess interactions with current med [...] Encounters Date Type Department Care Team Description 11/02/2024 Results Follow-Up [address] [facility] [address] Sarita Baker MD XR Shoulder 2+ Views Left 11/01/2024 1:00 PM EDT Office [address] [place] [address] Sarita Baker MD Acute bilateral low back pain without sciatica; Acute pain of left shoulder; Bilateral hand pain; Hemiparesis affecting left side as late effect of cerebrovascular accident ([facility]) 11/01/2024 Travel 11/01/2024 Telephone [facility] [place] [address] Kiel Shaffer MD Nurse Triage 10/29/2024 Telephone [facility] [address] [facility] [place] [address] Katlyn Rodriguez, PharmD 10/29/2024 Travel 10/18/2024 Refill [facility] [place] [address] Kiel Shaffer MD Psychophysiological insomnia 10/18/2024 Refill [facility] [place] [address] Lizzie Alfaro NP Cerebellar mass; Chronic intractable headache, unspecified headache type 10/17/2024 Patient Outreach [facility] [address] [place] [address] Kiel Shaffer MD Care Coordination ([facility] f/u call- LVM) 10/16/2024 Patient Outreach [facility] [address] [place] [address] Kiel Shaffer MD 10/09/2024 2:00 PM EDT [facility] [address] [address] Sarita Baker MD Essential hypertension (Primary Dx); Nondisplaced fracture of right radial styloid process, initial encounter for closed fracture 10/09/2024 Travel 10/09/[address] [address] Kiel Shaffer MD ER Follow-up; Nurse Triage 10/09/[address] [address] Kiel Shaffer MD No Show 10/06/2024 Orders Only [facility] External Provider, [facility] 10/05/[address] [address] Kiel Shaffer MD Referral 10/04/2024 Patient Outreach [address] [address] Kiel Shaffer MD Care Management ([facility] TC #2-lvm) 10/02/2024 10:40 AM EDT Office Visit [address] [address] Victorino Graves MD Acute otitis externa of left ear, unspecified type (Primary Dx) 10/02/[address] [address] Kiel Shaffer MD 10/02/2024 Travel 09/28/[address] [facility] [address] [place] [address] Kiel Shaffer MD Type 2 diabetes mellitus with other specified complication ([facility]) 09/21/2024 Patient Outreach [address] [address] Kiel Shaffer MD Care Management ([facility] TC #1-lvm) 09/19/2024 9:00 AM EDT Clinical Support [address] [address] Opal Steiner, RN Long-term current use of opiate analgesic (Primary Dx) 09/19/[address] [facility] [address] [place] [address] Opal Steiner, RN Cerebellar mass; Chronic intractable headache, unspecified headache type 09/19/2024 Travel 09/12/[address] [facility] [address] [place] [address] Kiel Shaffer MD 09/10/[address] [address] Katlyn Rodriguez PharmD Essential hypertension 09/06/2024 Orders Only [address] [address] Lizzie Alfaro NP Left arm weakness (Primary Dx) 09/06/2024 Orders Only [address] [address] Lizzie Alfaro NP Weakness of both lower extremities (Primary Dx); Hemiparesis of left dominant side as late effect of cerebral infarction ([facility]) 09/06/[address] [address] Kiel Shaffer MD PT Order 09/06/[address] [address] Kiel Shaffer MD Requesting Call Back 09/05/2024 11:30 [place] [address] Sravanthi Robbins MD Type 2 diabetes mellitus with other specified complication, with long-term current use of insulin ([facility]) (Primary Dx); Left ear pain; Impacted cerumen of right ear; Excessive cerumen in ear canal, left; Essential hypertension; Dietary counseling; Exercise counseling; Class 3 severe obesity due to excess calories with serious comorbidity and body mass index (BMI) of 40.0 to 44.9 in adult 09/05/[address] [facility] [address] [place] [address] Kiel Shaffer MD Medication Question; Prior Authorization 09/05/2024 Patient Outreach [facility] [address], [place] [phone] Kiel Shaffer MD 09/05/2024 Travel 09/05/[address] [address] Kiel Shaffer MD Prior Authorization 09/05/[address] [address] Kiel Shaffer MD Nurse Triage 09/04/2024 Plan of Care Documentation [address] [address] 09/04/[address] [address] Kiel Shaffer MD Cerebellar mass; Chronic intractable headache, unspecified headache type 09/04/2024 Patient Outreach [facility] [address] [place] [address] Kiel Shaffer MD Care Coordination ([facility] initial assessment/ enrollment) 09/04/2024 Patient Outreach [facility] [address] [place] [address] Kiel Shaffer MD 09/03/2024 5:40 PM EDT Office Visit [facility] [address] [place] [address] Sergio Troy MD Non-recurrent acute suppurative otitis media of left ear without spontaneous rupture of tympanic membrane (Primary Dx) 09/03/2024 Orders Only [facility] [address] [place] [address] Sergio Troy MD 09/03/2024 Travel 08/30/[address] [address] Kiel Shaffer MD Referral 08/29/2024 Telephone [facility] [address] [place] [address] Kiel Shaffer MD Medication Question 08/22/[address] [facility] [address] [place] [address] Katlyn Rodriguez PharmD Type 2 diabetes mellitus with other specified complication, with long-term current use of insulin ([facility]); Type 2 diabetes mellitus with obesity (CMS/HCC) ([facility]) 08/22/2024 Patient Outreach [facility] [address] [place] [address] Kiel Shaffer MD 08/22/[address] [facility] [address] [place] [address] Kiel Shaffer MD Urticaria 2024 Patient Outreach [facility] [address] [place] [address] Kiel Shaffer MD Care Coordination (C3/CM Outreach) [address] [facility] [address] [place] [address] Katlyn Rodriguez PharmD Type 2 diabetes mellitus with other specified complication, with long-term current use of insulin ([facility]); Type 2 diabetes mellitus with obesity ([facility]) ([facility]) 08/20/2024 1:45 PM EDT Office Visit [facility] [address] [place] [address] Kiel Shaffer MD Thalamic pain syndrome (Primary Dx) 08/20/2024 Travel 08/20/2024 Patient Outreach [facility] [address] [place] [address] Kiel Shaffer MD Care Coordination (C3/CM Chart Review) 08/20/[address] [facility] [address] [place] [address] Kiel Shaffer MD Appointment Request 08/20/[address] [facility] [address] [place] [address] Kiel Shaffer MD ER Follow-up 08/20/[address] [address] Opal Steiner, MARINA NCNS for 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 RV today 08/20/[address] [facility] [address] [place] [address] Kiel Shaffer MD Care Coordination ([facility] Chart review) 08/20/2024 Patient Outreach [address] [phone] Kiel Shaffer MD 08/17/2024 9:20 AM EDT Office [facility] [address] [phone] Sarita Baker MD Other chest pain; Gait instability; Hemiparesis of left dominant side as late effect of cerebral infarction (CMS/HCC) 08/17/[address] [address] Kiel Shaffer MD Referral 08/17/[address] [address] Sarita Baker MD Nurse Triage 08/17/2024 Travel 08/16/[address] [address] Katlyn Rodriguez, AngieD Prior Authorization (CG; Shira 3) 08/16/2024 Travel 08/15/2024 9:30 AM EDT Clinical Support [address] [address] Meghan Ramirez RN Bilateral impacted cerumen 08/15/2024 Travel 08/15/[address] [facility] [address] [phone] Victorino Graves MD 08/13/[address] [phone] Renetta Power RN 08/11/2024 9:20 AM EDT Office Visit [address] [phone] Kiel Shaffer MD Hemiparesis of left dominant side, unspecified hemiparesis etiology (CMS/HCC) (Primary Dx); Dizziness; Frequent falls; Cerebrovascular accident (CVA), unspecified mechanism (CMS/HCC); Bilateral impacted cerumen 08/11/2024 Travel 08/07/[address] [address] Kiel Shaffer MD Nurse Triage 08/07/[address] [address] Kiel Shaffer MD Cerebellar mass; Chronic intractable headache, unspecified headache type 08/06/2024 9:30 AM EDT Office Visit [address] [address] Lizzie Alfaro NP Hospital discharge follow-up (Primary Dx); Hemiparesis of left dominant side, unspecified hemiparesis etiology (CMS/HCC); Wheezing; Frequent falls; Nonintractable headache, unspecified chronicity pattern, unspecified headache type 08/06/[address] [phone] Barbara Martinez [place] october recalls 08/06/2024 Travel from Last 3 Months Immunizations Immunization Administration Dates Next Due HepB-CpG 11/05/2022,10/08/2022 Influenza Injectable Quadriv alant Preservative Free IIV4 MDCK 11/05/2022 Influenza Whole 11/06/2010 Influenza injectable quadriv alent IIV4 with preservative 01/09/2016 Influenza injectable quadriv alent preservative free 11/13/2021,01/21/2021,01/07/2020,12/13,01/30/2018 Influenza, IIV3, injectable 02/03/2016,1 ,12/16/2013,02/23,11/02/2012,10/26/2011,01/13/2011 ,11/03/2010,11/21/2009 Influenza, seasonal, injecta ble, preservative free 11/29/2023 Novel [id number], all formulations 05/31/2009 Pneumococcal Conjugate PCV 20 [...] AM EDT Clinical Support [facility] [address] [place] [address] Opal Steiner RN 11/27/2024 10:30 AM EDT Medication Management [facility] [address] [place] [address] Katlyn Rodriguez, PharmD [address] [place] [address] Health Maintenance Due Date Last Done Comments CT Colonography 1965 FIT DNA/Cologuard 1965 FIT 1965 FOBT 1965 HIV Screening 1965 Sigmoidoscopy 1965 Hepatitis C Screening 08/22/1983 Pap Smear 1986 HPV/Cotest 08/22/1995 Diabetes: Urine Protein Screening 05/25/2024 05/26/2023, 08/30/2022 Diabetes: Foot Exam 10/19/2024 10/20/2023, 10/20/2023, 10/20/2023, Additional history exists COVID-19 Vaccine ( season) 2024 12/15/2021, 03/13/2021, 08/18/2020, Additional history exists Influenza Vaccine (#1) 2024 4, 11/05/2022, 11/13/2021, Additional history exists Eye Exam 12/16/2024 12/17/2023, 0 06/2022, 03/14/2012 Diabetes: Hemoglobin A1C 01/02/2025 025, 06/28/2024, 03/27/2024, Additional history exists Mammogram 06/02/2025 06/03/2023, 01/03/2019 Lipid Panel 06/18/2025 06/18/2024, 090 04/2023, 05/26/2023, Additional history exists Alcohol/Substance Use [...] complication, with long-term current use of insulin ([facility]) POCT KEELEY-14 URINE DRUG SCREEN Routine 09/19/2024 9:09 AM EDT Long-term current use of opiate analgesic NM REMOVAL IMPACTED CERUMEN INSTRUMENTATION UNILAT Routine 09/05/2024 [...] 2 VIEWS Routine 08/17/2024 9:56 AM EDT LIPID PANEL WITH REFLEX TO DIRECT LDL Routine 06/18/2024 8:18 AM EDT BI MAMMOGRAM SCREENING TOMOSYNTHESIS BILATERAL Routine 06/03/2023 8:45 AM EDT ALBUMIN, RANDOM URINE W/CREATININE Routine 05/26/2023 8:27 AM EDT Type 2 diabetes mellitus with other specified complication, with long-term current use of insulin ([facility]) Rib pain on left side HM COLONOSCOPY Routine 07/01/2022 4:37 PM EDT DIABETES EYE EXAM Routine 05/26/2022 from Last 3 Months or Most Recently Relevant to Health Maintenance Results * XR Shoulder 2+ Views Left (11/01/2024 3:06 PM EDT) Anatomical Region Laterality Modality Upper Extremities, Shoulder Left Radi ographic Imaging 11/01/2024 3:06 PM EDT Narrative 11/01/2024 3:21 PM EDT [address] [address] XRay Report Signed Patient: Sarita Puga MR#: [id number] 92 : 1965 Acct:[id number] Age/Sex: 59 / F ADM Date: 11/01/24 Loc: HO.HHCX Attending Dr: Sarita Gonzalez MD Ordering Physician: Sarita Baker MD Date of Service: 11/01/24 Procedure(s): XR shoulder LT min 2V Accession Number(s): [id number] cc: Sarita Baker MD; Name,Kiel BAILEY Reason [...] 11/01/24 1518 DD/ 1506 TD/TT: 11/01/24 1508 Slip Caster: Procedure Note Donotuseinterpreter, Image - 11/01/[address] [address] XRay Report Signed Patient: Sarita Puga MMR#: [id number] 92 : 1965Acct:[id number] Age/Sex: 59 / FADM Date: 11/01/24 Loc: HO.HHCX Attending Dr: Sarita Gonzalez MD Ordering Physician: Sarita Baker MD Date of Service: 11/01/24 Procedure(s): XR shoulder LT min 2V Accession Number(s): [id number] cc: Sarita Baker MD; Name,Kiel BAILEY Reason [...] 11/01/24 1518 DD/ 1506 TD/TT: 11/01/24 1508 Slip Caster: Sarita Gonzalez MD IMG XR PROCEDURES Fin al Result * XR Lumbar Spine 2-3 Views (11/01/2024 2:27 PM EDT) Only the most recent of2 resultswithin the time period is included. Anatomical Region Laterality Modality Spine, L-spine Radiographic Diana ging 11/01/2024 2:27 PM EDT Narrative 11/01/2024 3:23 [place] [address] XRay Report Signed Patient: Sarita Puga MR#: [id number] 92 : 1965 Acct:[id number] Age/Sex: 59 / F ADM Date: 11/01/24 Loc: HO.HHCX Attending Dr: Sarita Gonzalez MD Ordering Physician: Sarita Baker MD Date of Service: 11/01/24 Procedure(s): XR lumbar spine 2-3V Accession Number(s): [id number] cc: Sarita Baker MD; Name,Kiel BAILEY Reason [...] 11/01/24 1520 DD/ 1427 TD/TT: 11/01/24 1508 Slip Caster: Procedure Note Donotuseinterpreter, Image - 11/01/[address] [address] XRay Report Signed Patient: Sarita Puga MMR#: [id number] 92 : 1965Acct:[id number] Age/Sex: 59 / FADM Date: 11/01/24 Loc: .HHCX Attending Dr: Sarita Gonzalez MD Ordering Physician: Sarita Baker MD Date of Service: 11/01/24 Procedure(s): XR lumbar spine 2-3V Accession Number(s): [id number] cc: Sarita Baker MD; Name,Kiel BAILEY Reason [...] 11/01/24 1520 DD/ 1427 TD/TT: 11/01/24 1508 Slip Caster: us Sarita Gonzalez MD IMG XR PROCEDURES Fin al Result * XR Hand 3+ Views Right (10/06/2024 5:17 PM EDT) Anatomical Region Laterality Modality Upper Extremities, Hand Right Radiogra phic Imaging 10/06/2024 5:17 PM EDT Narrative 10/06/2024 5:18 PM EDT [address] [address] XRay Report Signed Patient: Sarita Puga MR#: [id number] 92 : 1965 Acct:[id number] Age/Sex: 59 / F ADM Date: 10/06/24 Loc: HO.ED Attending Dr: Ordering Physician: Justina Perez NP Date of Service: 10/06/24 Procedure(s): XR hand RT min 3V Accession Number(s): [id number] cc: Name,Kiel BAILEY; Justina Perez NP CLINICAL [...] in OV> 10/06/241717 DD/ 16 TD/TT: 10/06/241716 Slip Caster: Procedure Note Donotuseinterpreter, Image - 10/06/[address] [address] XRay Report Signed Patient: Sarita Puga MMR#: [id number] 92 : 1965Acct:[id number] Age/Sex: 59 / FADM Date: 10/06/24 Loc: HO.ED Attending Dr: Ordering Physician: Justina Perez NP Date of Service: 10/06/24 Procedure(s): XR hand RT min 3V Accession Number(s): [id number] cc: Name,Kiel BAILEY; Justina Perez NP CLINICAL [...] in OV> 10/06/241717 DD/ 16 TD/TT: 10/06/241716 Slip Caster: [facility] External Provider IMG XR PROCEDURES Edited Result - Final * XR Wrist 3+ Views Right (10/06/2024 5:12 PM EDT) Anatomical Region Laterality Modality Upper Extremities, Wrist Right Radiogr aphic Imaging 10/06/2024 5:12 PM EDT Narrative 10/06/2024 5:14 PM EDT [place] [address] XRay Report Signed Patient: Sarita Puga MR#: [id number] 92 : 1965 Acct:[id number] Age/Sex: 59 / F ADM Date: 10/06/24 Loc: HO.ED Attending Dr: Ordering Physician: Justina Perez NP Date of Service: 10/06/24 Procedure(s): XR wrist RT min 3V Accession Number(s): [id number] cc: Kiel Shaffer MD; Justina Perez NP [...] in OV> 10/06/241712 DD/ 11 TD/TT: 10/06/241711 Slip Caster: Procedure Note Donotuseinterpreter, Image - 10/06/2024 [place] [address] XRay Report Signed Patient: Sarita Puga MMR#: [id number] 92 : 1965Acct:[id number] Age/Sex: 59 / FADM Date: 10/06/24 Loc: .ED Attending Dr: Ordering Physician: Justina Perez NP Date of Service: 10/06/24 Procedure(s): XR wrist RT min 3V Accession Number(s): [id number] cc: Kiel Shaffer MD; Justina Perez NP [...] in OV> 10/06/241712 DD/ 11 TD/TT: 10/06/241711 Slip Caster: [facility] External Provider IMG XR PROCEDURES Edited [...] procedure / Unknown 09/19/2024 9:09 AM EDT Narrative Opal Steiner RN - 09/19/2024 9:09 AM EDT UTOX cup Lot#[id number] Exp. 11/27/25 Internal Pass Control Kiel Shaffer MD POINT OF CARE TEST ENTER/EDIT OR DERABLES Final Result * NM REMOVAL IMPACTED CERUMEN INSTRUMENTATION UNILAT (09/05/2024 11:12 AM EDT) Narrative Sravanthi Robbins MD - 09/05/2024 11:12 AM EDT Sravanthi Robbins MD 09/10/2024 10:23 AM Ear Cerumen Removal Date/Time: 09/05/2024 11:12 AM Performed by: Madalyn Garcia RN Authorized by: Sravanthi Robbins MD Consent: Consent obtained: Verbal Consent given by: Patient Risks discussed: Infection, pain, incomplete removal and dizziness Alternatives discussed: No treatment and delayed treatment Cherry protocol: Patient identity confirmed: Verbally with patient [...] PM EDT Narrative 08/22/2024 12:12 PM EDT [place] [address] Ultrasound Report Signed Patient: Sarita Puga MR#: [id number] 92 : 1965 Acct:[id number] Age/Sex: 59 / F ADM Date: 08/21/24 Loc: HO.US Attending Dr: Cherelle ROMO Ordering Physician: Cherelle Trujillo Date of Service: 08/21/24 Procedure(s): US renal BI Accession Number(s): [id number] cc: Cherelle Trujillo; Name,Kiel BAILEY CLINICAL HISTORY: [...] Blood MD in OV> 08/22/24 1212 DD/ TD/TT: 08/22/241210 Slip Caster: Procedure Note Donotyouter, Jung - 08/22/2024 [place] [address] Ultrasound Report Signed Patient: Sarita Puga#: [id number] 92 : 1965Acct:[id number] Age/Sex: 59 / FADM Date: 08/21/24 Loc: HO.US Attending Dr: Cherelle ROMO Ordering Physician: Cherelle Trujillo Date of Service: 08/21/24 Procedure(s): US renal BI Accession Number(s): [id number] cc: Cherelle Trujillo; Name,Kiel BAILEY CLINICAL HISTORY: [...] Blood MD in OV> 08/22/24 1212 DD/ TD/TT: 08/22/241210 Slip Caster: [facility] External Provider IMG US PROCEDURES Final Result * ECG 12 lead (2024 1:14 PM EDT) Narrative Sarita Baker MD - 2024 1:14 PM EDT NSR us Sarita Gonzalez MD ECG ORDERABLES Final Result * CT Head w/o Contrast (08/17/2024 10:10 AM EDT) Anatomical Region Laterality Modality Head, Neck Computed Tomogra phy 08/17/2024 10:1 0 AM EDT Narrative 08/17/2024 11:32 AM EDT [place] [address] CT Scan Report Signed Patient: Sarita Puga MR#: [id number] 92 : 1965 Acct:[id number] Age/Sex: 58 / F ADM Date: 08/17/24 Loc: HO.ED Attending Dr: Ordering Physician: Natalie Martell Date of Service: 08/17/24 Procedure(s): CT head/brain wo IV con Accession Number(s): [id number] cc: Natalie Martell; Name,Kiel BAILEY Report Number: [id number]: Total DLP = 756.00 mGy-cm EXAMINATION: CT [...] 08/17/24 1130 DD/ 1010 TD/TT: 08/17/24 1120 Slip Caster: Procedure Note Donotuseinterpreter, Image - 08/17/[address] [place] [address] [address] Scan Report Signed Patient: Sarita Puga MMR#: [id number] 92 : 1965Acct:[id number] Age/Sex: 58 / FADM Date: 08/17/24 Loc: HO.ED Attending Dr: Ordering Physician: Natalie Martell Date of Service: 08/17/24 Procedure(s): CT head/brain wo IV con Accession Number(s): [id number] cc: Natalie Martell; Name,Kiel BAILEY Report Number: [id number]: Total DLP = 756.00 mGy-cm EXAMINATION: CT [...] 08/17/24 1130 DD/ 1010 TD/TT: 08/17/24 1120 Slip Caster: [facility] External Provider IMG CT PROCEDURES Final Result * XR Femur 2+ Views Right (08/17/2024 10:02 AM EDT) Anatomical Region Laterality Modality Lower Extremities, Femur Right Radiogr aphic Imaging 08/17/2024 10:0 2 AM EDT Narrative 08/17/2024 11:23 AM EDT [address] [address] XRay Report Signed Patient: Sarita Puga MR#: [id number] 92 : 1965 Acct:[id number] Age/Sex: 58 / F ADM Date: 08/17/24 Loc: HO.ED Attending Dr: Ordering Physician: Natalie Martell Date of Service: 08/17/24 Procedure(s): XR femur RT 2V Accession Number(s): [id number] cc: Natalie Martell; Name,Kiel BIALEY EXAMINATION: XR FEMUR, RIGHT CLINICAL INFORMATION: pain, [...] 08/17/24 1120 DD/ 1002 TD/TT: 08/17/24 1113 Slip Caster: Procedure Note Donotuseinterpreter, Image - 08/17/[address] [address] XRay Report Signed Patient: Sarita Puga MMR#: [id number] 92 : 1965Acct:[id number] Age/Sex: 58 / FADM Date: 08/17/24 Loc: .ED Attending Dr: Ordering Physician: Natalie Martell Date of Service: 08/17/24 Procedure(s): XR femur RT 2V Accession Number(s): [id number] cc: Natalie Martell; Name,Kiel BAILEY EXAMINATION: XR [...] 08/17/24 1120 DD/ 1002 TD/TT: 08/17/24 1113 Slip Caster: [facility] External Provider IMG XR PROCEDURES Final Result * XR Chest 2 Views (08/17/2024 9:56 AM EDT) Anatomical Region Laterality Modality Chest Radiographic Diana ging 08/17/2024 9:56 AM EDT Narrative 08/17/2024 11:20 AM EDT [place] [address] XRay Report Signed Patient: Sarita Puga MR#: [id number] 92 : 1965 Acct:[id number] Age/Sex: 58 / F ADM Date: 08/17/24 Loc: .ED Attending Dr: Ordering Physician: Natalie Martell Date of Service: 08/17/24 Procedure(s): XR chest 2V Accession Number(s): [id number] cc: Natalie Martell; Name,Kiel BAILEY EXAMINATION: XR [...] 08/17/24 1117 DD/ 0956 TD/TT: 08/17/24 1113 Slip Caster: Procedure Note Donotuseinterpreter, Image - 08/17/[address] [address] XRay Report Signed Patient: Sarita Puga MMR#: [id number] 92 : 1965Acct:[id number] Age/Sex: 58 / FADM Date: 08/17/24 Loc: HO.ED Attending Dr: Ordering Physician: Natalie Martell Date of Service: 08/17/24 Procedure(s): XR chest 2V Accession Number(s): [id number] cc: Natalie Martell; Name,Kiel BAILEY EXAMINATION: XR [...] 08/17/24 1117 DD/ 0956 TD/TT: 08/17/24 1113 Slip Caster: [facility] External Provider IMG XR PROCEDURES Final Result * (ABNORMAL) Lipid Panel with Reflex to Direct LDL (06/18/2024 8:18 AM EDT) Triglycerides 156(H) <150 mg/dL [facility] Comment:Desirable Triglyceri de: less than [...] 190 mg/dL HDL Cholesterol 45 >40 mg/dL [facility] Comment:Desirable HDL: great er than 40 mg/dL Note: This HDL assay may give artificially low results in patients with liver disease. 06/18/2024 8:18 AM EDT 06/18/2024 11:00 AM EDT Kiel Shaffer MD LAB BLOOD ORDERABLES Final Resul t [facility] [address] [place] [phone] * BI Mammogram Screening Tomosynthesis Bilateral (06/03/2023 8:45 AM EDT) Anatomical Region Laterality Modality Breast Bilateral Mammography 06/03/2023 8:45 AM EDT Narrative 06/30/2023 10:24 PM EDT [facility] [address] [place] [address] Mammography Report Signed Patient: Sarita Puga MR#: [id number] 92 : 1965 Acct:[id number] Age/Sex: 57 / F ADM Date: 06/03/23 Loc: HO.MAMMO Attending Dr: Kiel Shaffer MD Ordering Physician: Kiel Shaffer MD Results: 1Negative Date of Service: 06/03/23 Follow Up: 1 Year From Orig inal Mammogram Procedure(s): MM tomosynthesis screening BI Accession Number(s): [id number] cc: Kiel Shaffer MD EXAMINATION: MM SCREENING [...] MD in OV> 06/30/230 DD/ 0845 TD/TT: Slip Caster: Procedure Note Donotuseinterpreter, Image - 06/30/2023 [facility] [address] [place] [address] Mammography Report Signed Patient: Sarita Puga MMR#: [id number] 92 : 1965Acct:[id number] Age/Sex: 57 / FADM Date: 06/03/23 Loc: MARGAUX Attending Dr: Kiel Shaffer MD Ordering Physician: Kiel Shaffer MDResults: 1Negative Date of Service: 06/03/23Follow Up: 1 Year From Orig inal Mammogram Procedure(s): MM tomosynthesis screening BI Accession Number(s): [id number] cc: Kiel Shaffer MD EXAMINATION: MM SCREENING [...] Nancy Healy MD in OV> 06/30/232219 DD/ TD/TT: Slip Caster: Result Rosita Shaffer MD IMG BI PROCEDURES Edited Result - Final * Albumin, Random Urine W/Creatinine (05/26/2023 8:27 AM EDT) Creatinine, Urine 185.88 mg/dL [facility] Microalbumin Urine 23.0 mg/L [facility] Microalbum Creatinine Ratio Ur 12.3 <30 ug/mg cr [facility] Comment:Albumin/Creatinine R atio Reference Ranges: Normal: < 30 ug/mg creatinine Microalbuminuria: 30 - 300 ug/mg creatinineClinical Albuminuria: > 300 ug/mg creatinine Urine (Urine, Random) 05/26/2023 8:27 AM EDT 05/26/2023 11:19 AM EDT Result Rosita Shaffer MD LAB URINE ORDERABLES Final Resul t [facility] [address] [place] [phone] * Colonoscopy (07/01/2022 4:37 PM EDT) Colonoscopy Normal Normal Narrative Emely Devine - 07/01/2022 4:37 PM EDT Recommended 5 year follow up ([facility] us Glo Chong MD HEALTH MAINTENANCE Final Result * Diabetes Eye Exam (05/26/2022) Eye Exam Normal Normal Result Rosita Shaffer MD HEALTH MAINTENANCE Final Result from Last 3 Months or Most Recently Relevant to Health Maintenance Insurance [place] [address] [place] [employer] Care Teams Magazine Writer Relationship Specialty Start Date End Date Name, MD Kiel [address] [place] [address] PCP - General Family Medicine 07/15/15 Katlyn Rodriguez, Bin [address] [place] [address] Pharmacist Internal Medicine 10/08/22 Ania Spencer 08/20/24 Opal Leyva Registered Nurse 10/29/24 Marta Ovalle Library Media AssistantSupervisor Feed Mill 05/25/23
--- OUTSIDE RECORDS SUMMARY | 2024-11-05 13:22 | XMS_ITS | Encounter Summary ---
Author Organization [employer] Address [address] [place] [address] 7t [place] [address] Care Team Providers Care Physical Therapy Aides Teacher Name Role Phone Name, Kiel BAILEY Primary Care Provider [phone] Katlyn Rodriguez PharmD Unavailable [phone] Nehal Ann RN Unavailable [phone] Ania Spencer Unavailable Opal Leyva Unavailable [phone] Encounter Details Date Type Department Care Team (Late Contact Info) Description 10/29/2022 Abstract [facility] [address] [place], [place] [phone] Name, MD Kiel [address] [place], [place] [phone] Social History Tobacco Use Types Packs/Day Years [...] Description 11/15/2024 11:30 AM EDT Clinical Support [address] [address] Opal Steiner, MARINA 11/27/2024 10:30 AM EDT Medication Management [address] [address] PuKatlyn albert, PharmD [address] [place], [place] documented as of this encounter Goals [...] encounter Results * Diabetes Eye Exam (05/26/2022) [facility] Signature Eye Exam Normal Normal Kiel Shaffer MD HEALTH MAINTENANCE Final Result documented in this encounter Visit Diagnoses Not on filedocumented in this encounter Additional Health Concerns Assessment Noted Time PHQ-9 Depression Total Score: 7 07/15/19 23 2:39 PM EDT documented as of this encounter Care Teams Physical Therapy Aides Teacher Relationship Specialty Start Date End Date Name, MD Kiel [address] [place] [address] PCP - General Family Medicine 07/15/15 Puia, Katlyn, PharmD [address] [place] [address] Pharmacist Internal Medicine 10/08/22 Nehal Ann, MARINA [address] [place] [address] Registered Nurse Family Medicine 08/20/24 10/29/24 Ania Spencer 08/20/24 Opal Leyva Registered Nurse 10/29/24 Marta Ovalle Blood Bank TechnologistOriental Rug Repairer 05/25/23 documented as of this encounter
--- OUTSIDE RECORDS SUMMARY | 2024-11-05 13:22 | XMS_ITS | Encounter Summary ---
Author Organization [facility] Address [address] [place] [address] Care Team Providers Care House Shorer Name Role Phone Name, Kiel BAILEY Primary Care Provider Unavailabl e Name, Kiel BAILEY Primary Care Provider Unavailabl e Philly Vela DO Primary Care Pro vider Unavailable Name, Kiel BAILEY Primary Care Provider Unavailabl e Encounter Details Date Type Department Care Team Description 07/31/2013 Pediatrician/Medical Doctor Report Medical Records [address] [place] [address] Quinton Luther Social History Tobacco Use Types [...] on filedocumented in this encounter Care Teams House Shorer Relationship Specialty Start Date End Date Kiel Shaffer MD PCP - General 05/26/09 04/27/15 Kiel Shaffer MD PCP - General Internal Medicine 04/28/15 05/05/15 Philly Vela DO PCP - General Internal Medicine 05/06/15 08/27/15 Kiel Shaffer MD PCP - General Internal Medicine 08/28/15 documented as of this encounter
--- OUTSIDE RECORDS SUMMARY | 2024-11-05 13:22 | XMS_ITS | Encounter Summary ---
Author Organization [facility] Address [address] [place] [address] Care Team Providers Care Terminal Computer Operator Name Role Phone Name, Kiel BAILEY Primary Care Provider Unavailabl e Name, Kiel BAILEY Primary Care Provider Unavailabl e Philly Vela DO Primary Care Pro vider Unavailable Name, Kiel BAILEY Primary Care Provider Unavailabl e Encounter Details Date Type Department Care Team Description 11/23/2009 Hospital Medical Records [address] [place] [address] Valencia Delvalle Social History Tobacco Use Types [...] on filedocumented in this encounter Care Teams Terminal Computer Operator Relationship Specialty Start Date End Date Kiel Shaffer MD PCP - General 05/26/09 04/27/15 Kiel Shaffer MD PCP - General Internal Medicine 04/28/15 05/05/15 Philly Vela DO PCP - General Internal Medicine 05/06/15 08/27/15 Kiel Shaffer MD PCP - General Internal Medicine 08/28/15 documented as of this encounter
--- OUTSIDE RECORDS SUMMARY | 2024-11-05 13:22 | XMS_ITS | Encounter Summary ---
Author Organization [facility] Address [address] [place] [address] Care Team Providers Care Lithostripper Name Role Phone Name, Kiel BAILEY Primary Care Provider Unavailabl e Name, Kiel BAILEY Primary Care Provider Unavailabl e Philly Vela DO Primary Care Pro vider Unavailable Name, Kiel BAILEY Primary Care Provider Unavailabl e Encounter Details Date Type Department Care Team Description 10/14/2010 Engine Cleaner Report Medical Records [address] [place] [address] Kenny Richards Social History Tobacco Use Types [...] on filedocumented in this encounter Care Teams Lithostripper Relationship Specialty Start Date End Date Kiel Shaffer MD PCP - General 05/26/09 04/27/15 Kiel Shaffer MD PCP - General Internal Medicine 04/28/15 05/05/15 Pihlly Vela DO PCP - General Internal Medicine 05/06/15 08/27/15 Kiel Shaffer MD PCP - General Internal Medicine 08/28/15 documented as of this encounter
--- OUTSIDE RECORDS SUMMARY | 2024-11-05 13:22 | XMS_ITS | Encounter Summary ---
Author [facility] Address [address] [place] [address] Care Team Providers Care Hospital Cleaning Specialist Name Role Phone Name, Kiel BAILEY Primary Care Provider Unavailabl e Name, Kiel BAILEY Primary Care Provider Unavailabl e Philly Vela DO Primary Care Pro vider Unavailable Name, Kiel BAILEY Primary Care Provider Unavailabl e Encounter Details Date Type Department Care Team Description 11/17/2013 Transfer Records Medical Records [address] [place] [address] Abstract, Provider Social History Tobacco Use Types [...] on filedocumented in this encounter Care Teams Hospital Cleaning Specialist Relationship Specialty Start Date End Date Kiel Shaffer MD PCP - General 05/26/09 04/27/15 Kiel Shaffer MD PCP - General Internal Medicine 04/28/15 05/05/15 Philly Vela DO PCP - General Internal Medicine 05/06/15 08/27/15 Kiel Shaffer MD PCP - General Internal Medicine 08/28/15 documented as of this encounter
--- OUTSIDE RECORDS SUMMARY | 2024-11-05 13:22 | XMS_ITS | Encounter Summary ---
Author Organization [facility] Address [address] [place] [address] Phone Care Team Providers Care News Copy Editor Name Role Phone Unavailable Primary Care Provider Unavailabl e Encounter Details Date Type Department Care Team (Late st Contact Info) Description 01/04/2020 Procedure Pass [facility] [address] [place] [address] [place], [place] [phone] Social History Tobacco Use Types Packs/Day Years [...] It is not the complete legal health record.[facility]
--- OUTSIDE RECORDS SUMMARY | 2024-11-05 13:22 | XMS_ITS | Encounter Summary ---
Author Organization [facility] Address [address] [place] [address] Care Team Providers Care Rubber Cutter Name Role Phone Name, Kiel BAILEY Primary Care Provider Unavailabl e Name, Kiel BAILEY Primary Care Provider Unavailabl e Philly Vela DO Primary Care Pro vider Unavailable Name, Kiel BAILEY Primary Care Provider Unavailabl e Encounter Details Date Type Department Care Team Description 08/20/2010 Disease Management Nurse Report Medical Records [address] [place] [address] Shon Blanca Social History Tobacco Use Types [...] on filedocumented in this encounter Care Teams Rubber Cutter Relationship Specialty Start Date End Date Deena, MD Kiel PCP - General 05/26/09 04/27/15 Kiel Shaffer MD PCP - General Internal Medicine 04/28/15 05/05/15 Philly Vela DO PCP - General Internal Medicine 05/06/15 08/27/15 Kiel Shaffer MD PCP - General Internal Medicine 08/28/15 documented as of this encounter
--- OUTSIDE RECORDS SUMMARY | 2024-11-05 13:22 | XMS_ITS | Encounter Summary ---
Author Organization [facility] Address [address] [place] [address] Care Team Providers Care Scale Expert Name Role Phone Name, Kiel BAILEY Primary Care Provider Unavailabl e Name, Kiel BAILEY Primary Care Provider Unavailabl e Philly Vela DO Primary Care Pro vider Unavailable Name, Kiel BAILEY Primary Care Provider Unavailabl e Encounter Details Date Type Department Care Team Description 12/25/2010 Eye Environmental Protection Geologist Report Medical Records [address] [place] [address] Fei Armstrong Social History Tobacco Use Types [...] on filedocumented in this encounter Care Teams Scale Expert Relationship Specialty Start Date End Date Deena, MD Kiel PCP - General 05/26/09 04/27/15 Kiel Shaffer MD PCP - General Internal Medicine 04/28/15 05/05/15 Philly Vela DO PCP - General Internal Medicine 05/06/15 08/27/15 Kiel Shaffer MD PCP - General Internal Medicine 08/28/15 documented as of this encounter
--- OUTSIDE RECORDS SUMMARY | 2024-11-05 13:22 | XMS_ITS | Encounter Summary ---
Author Organization [employer] Address [address] [facility] 7t [place] [address] Care Team Providers Care Power Bender Operator Name Role Phone Name, Kiel BAILEY Primary Care Provider [phone] Katlyn Rodriguez PharmD Unavailable [phone] Nehal Ann RN Unavailable [phone] Ania Spencer Unavailable Opal Leyva Unavailable [phone] Reason for Visit * Reason Onset Date Comments Durable Medical Equipment 12/06/2022 Encounter Details Date Type Department Care Team (Late st Contact Info) Description 12/06/2022 Telephone [facility] [address] [place], [place] [phone] Name, MD Kiel [address] [place], [place] [phone] Durable Medical Equipment Social History Tobacco Use [...] to message above. Please contact pt at [phone] (Indonesian) * Telephone Encounter - Jean-Paul Finch - 12/06/2022 3:29 PM EDT Tc from pt requesting status on some bed absorbant pads to not stain bed. Please contact pt at [phone] Indonesian Speaker documented in this encounter Plan of Treatment Upcoming Encounters Date Type Department Care Team (Late st Contact Info) Description 11/15/2024 11:30 AM EDT Clinical Support [address] [address] Opal Steiner RN 11/27/2024 10:30 AM EDT Medication Management [facility] [address] [place] [address] PuiaKatlyn, PharmD [address] [place] [address] documented as of this encounter Goals Goal [...] documented as of this encounter Care Teams Power Bender Operator Relationship Specialty Start Date End Date Name, MD Kiel [address] [place] [address] PCP - General Family Medicine 07/15/15 Puia, Katlyn, PharmD [address] [place] [address] Pharmacist Internal Medicine 10/08/22 Nehal Ann RN [address] [place] [address] Registered Nurse Family Medicine 08/20/24 10/29/24 Ania Spencer 08/20/24 Opal Leyva Registered Nurse 10/29/24 Marta Ovalle City DriverRag Sorter And Cutter 05/25/23 documented as of this encounter
--- OUTSIDE RECORDS SUMMARY | 2024-11-05 13:22 | XMS_ITS | Encounter Summary ---
Author Organization [employer] Address [address] [place] [address] 7[address] [place] [address] Care Team Providers Care Director Of Public Works Name Role Phone Name, Kiel BAILEY Primary Care Provider Katlyn Rodriguez PharmD Unavailable [phone] Nehal Ann RN Unavailable [phone] Ania Spencer Unavailable Opal Leyva Unavailable [phone] Reason for Visit * Reason Onset Date Comments FYI 08/03/2024 Encounter Details Date Type Department Care Team (Late st Contact Info) Description 08/03/2024 Telephone [facility] [address] [place], [place] [phone] Name, MD Kiel [address] [place], [place] [phone] FYI Social History Tobacco Use Types Packs/Day [...] will be admitting pt for OT and correction. If any questions you can contact pt at [phone], documented in this encounter Plan of Treatment Upcoming Encounters Date Type Department Care Team (Late st Contact Info) Description 11/15/2024 11:30 AM EDT Clinical Support [address] [address] Opal Steiner, MARINA 11/27/2024 10:30 AM EDT Medication Management [facility] [address] [place] [address] Puia, Katlyn, PharmD [address] [place] [address] documented as of this encounter Goals Goal [...] of this encounter Care Teams Director Of Public Works Relationship Specialty Start Date End Date Name, MD Kiel [address] [place] [address] PCP - General Family Medicine 07/15/15 Puia, Katlyn, PharmD [address] [place] [address] Pharmacist Internal Medicine 10/08/22 Nehal Ann, MARINA [address] [place] [address] Registered Nurse Family Medicine 08/20/24 10/29/24 Ania Spencer 08/20/24 Opal Leyva Registered Nurse 10/29/24 Marta Ovalle Electrical Equipment AssemblerProject Program Manager 05/25/23 documented as of this encounter
--- OUTSIDE RECORDS SUMMARY | 2024-11-05 13:22 | XMS_ITS | Encounter Summary ---
Author Organization [facility] Address [address] [place] [address] Care Team Providers Care Volleyball Assistant Coach Name Role Phone Name, Kiel BAILEY Primary Care Provider Unavailabl e Name, Kiel BAILEY Primary Care Provider Unavailabl e Philly Vela DO Primary Care Pro vider Unavailable Name, Kiel BAILEY Primary Care Provider Unavailabl e Encounter Details Date Type Department Care Team Description 06/01/2010 Record Press Tender Report Medical Records [address] [place] [address] Shon Blanca Social History Tobacco Use Types [...] on filedocumented in this encounter Care Teams Volleyball Assistant Coach Relationship Specialty Start Date End Date Deena, MD Kiel PCP - General 05/26/09 04/27/15 Kiel Shaffer MD PCP - General Internal Medicine 04/28/15 05/05/15 Philly Vela DO PCP - General Internal Medicine 05/06/15 08/27/15 Kiel Shaffer MD PCP - General Internal Medicine 08/28/15 documented as of this encounter
--- OUTSIDE RECORDS SUMMARY | 2024-11-05 13:22 | XMS_ITS | Encounter Summary ---
Author Organization [employer] Address [address] [place] [address] 7t [place] [address] Care Team Providers Care Blower Insulator Name Role Phone Name, Kiel BAILEY Primary Care Provider Katlyn Rodriguez PharmD Unavailable [phone] Nehal Ann RN Unavailable [phone] Ania Spencer Unavailable Opal Leyva Unavailable [phone] Reason for Visit * Reason Onset Date Comments Nurse Triage 07/04/2024 Encounter Details Date Type Department Care Team (Late st Contact Info) Description 07/04/2024 Telephone [facility] [address] [place], [place] [phone] Name, MD Kiel [address] [place], [place] [phone] Nurse Triage Social History Tobacco Use Types [...] 07/04/2024 11:25 AM EDT Triage call with [facility] Banking Supervisor [place] [id number]. Pt reports headache over the entire head. No involvement with eye area. BP is 104/60. Pt [place] [facility] [place] is being tested for possible tumor. Pt was prescribed dexamethasone byneurologist. Pt pain is moderate . Pt has been prescribed roxicodone 10mg starting 06/28/24 but, reports pharmacy wouldn't fill prescription last time contacted. Pt daughter is speaking for Pt at this time. Daughter is advised to call [facility] for prescription of roxicodone which [...] caller accepted this outcome. Contact pt at [phone] (palauan) documented in this encounter Plan of Treatment Upcoming Encounters Date Type Department Care Team ([facility] st Contact Info) Description 11/15/2024 11:30 AM EDT Clinical Support [address] [address] Opal Steiner RN 11/27/2024 10:30 AM EDT Medication Management [address] [address] Puia, Katlyn, PharmD [address] [place] [address] documented as of this encounter Goals Goal [...] documented as of this encounter Care Teams Blower Insulator Relationship Specialty Start Date End Date Name, MD Kiel [address] [place] [address] PCP - General Family Medicine 07/15/15 Katlyn Rodriguez PharmD [address] [place] [address] Pharmacist Internal Medicine 10/08/22 Nehal Ann RN [address] [place] [address] Registered Nurse Family Medicine 08/20/24 10/29/24 Ania Spencer 08/20/24 Opal Leyva Registered Nurse 10/29/24 Marta Ovalle Safety Relief Valve TechnicianTelevision Receiver Analyzer 05/25/23 documented as of this encounter
--- OUTSIDE RECORDS SUMMARY | 2024-11-05 13:22 | XMS_ITS | Encounter Summary ---
Author Organization [facility] Address [address] [place] [address] Care Team Providers Care Front End Architect Name Role Phone Name, Kiel BAILEY Primary Care Provider Unavailabl e Name, Kiel BAILEY Primary Care Provider Unavailabl e Philly Vela DO Primary Care Pro vider Unavailable Name, Kiel BAILEY Primary Care Provider Unavailabl e Encounter Details Date Type Department Care Team Description 12/08/2009 Night Triage Doc Medical Records [address] [place] [address] Abstract, Provider Social History Tobacco Use Types [...] on filedocumented in this encounter Care Teams Front End Architect Relationship Specialty Start Date End Date Kiel Shaffer MD PCP - General 05/26/09 04/27/15 Kiel Shaffer MD PCP - General Internal Medicine 04/28/15 05/05/15 Philly Vela DO PCP - General Internal Medicine 05/06/15 08/27/15 Kiel Shaffer MD PCP - General Internal Medicine 08/28/15 documented as of this encounter
--- OUTSIDE RECORDS SUMMARY | 2024-11-05 13:22 | XMS_ITS | Encounter Summary ---
Author Organization [facility] Address [address] [place] [address] Care Team Providers Care Systems Test Technician Name Role Phone Name, Kiel BAILEY Primary Care Provider Unavailabl e Name, Kiel BAILEY Primary Care Provider Unavailabl e Philly Vela DO Primary Care Pro vider Unavailable Name, Kiel BAILEY Primary Care Provider Unavailabl e Encounter Details Date Type Department Care Team Description 12/17/2013 Hospital Medical Records [address] [place] [id number] Social History Tobacco Use Types Packs/Day Years [...] on filedocumented in this encounter Care Teams Systems Test Technician Relationship Specialty Start Date End Date Kiel Shaffer MD PCP - General 05/26/09 04/27/15 Kiel Shaffer MD PCP - General Internal Medicine 04/28/15 05/05/15 Philly Vela DO PCP - General Internal Medicine 05/06/15 08/27/15 Kiel Shaffer MD PCP - General Internal Medicine 08/28/15 documented as of this encounter
--- OUTSIDE RECORDS SUMMARY | 2024-11-05 13:22 | XMS_ITS | Encounter Summary ---
Author Organization [employer] Address [address] [facility] 7t [place] [address] Care Team Providers Care Staff Nurse Name Role Phone Name, Kiel BAILEY Primary Care Provider [phone] Katlyn Rodriguez PharmD Unavailable [phone] Neahl Ann RN Unavailable [phone] Ania Spencer Unavailable Opal Leyva Unavailable [phone] Reason for Visit * Reason Onset Date Comments Durable Medical Equipment 01/24/2023 Encounter Details Date Type Department Care Team (Late st Contact Info) Description 01/24/2023 Telephone [facility] MEDICINE [address] [place], [place] [phone] Name, MD Kiel [address] [place], [place] [phone] Durable Medical Equipment Social History Tobacco Use [...] to errol. Any questions, contact pt at [phone] documented in this encounter Plan of Treatment Upcoming Encounters Date Type Department Care Team (Late st Contact Info) Description 11/15/2024 11:30 AM EDT Clinical Support [address] [address] Opal Steiner RN 11/27/2024 10:30 AM EDT Medication Management [facility] MEDICINE [address] [place] [address] Puia, Katlyn, PharmD [address] [place] [address] documented as of this encounter Goals Goal [...] documented as of this encounter Care Teams Staff Nurse Relationship Specialty Start Date End Date Name, MD Kiel [address] [place] [address] PCP - General Family Medicine 07/15/15 Katlyn Rodriguez, PharmD [address] [place] [address] Pharmacist Internal Medicine 10/08/22 Nehal Ann RN [address] [place] [address] Registered Nurse Family Medicine 08/20/24 10/29/24 Ania Spencer 08/20/24 Opal Leyva Registered Nurse 10/29/24 Marta Ovalle Change Management SpecialistHistorical Guide 05/25/23 documented as of this encounter
--- OUTSIDE RECORDS SUMMARY | 2024-11-05 13:23 | XMS_ITS | Encounter Summary ---
Author Organization [facility] Address [address] [place] [address] Care Team Providers Care Supervisor Roving Department Name Role Phone Name, Kiel BAILEY Primary Care Provider Unavailabl e Name, Kiel BAILEY Primary Care Provider Unavailabl e Philly Vela DO Primary Care Pro vider Unavailable Name, Kiel BAILEY Primary Care Provider Unavailabl e Encounter Details Date Type Department Care Team Description 04/19/2010 Hospital Medical Records [address] [place] [address] Suze Marlow MD Social History Tobacco Use [...] filedocumented in this encounter Care Teams Supervisor Roving Department Relationship Specialty Start Date End Date Kiel Shaffer MD PCP - General 05/26/09 04/27/15 Kiel Shaffer MD PCP - General Internal Medicine 04/28/15 05/05/15 Philly Vela DO PCP - General Internal Medicine 05/06/15 08/27/15 Kiel Shaffer MD PCP - General Internal Medicine 08/28/15 documented as of this encounter
--- OUTSIDE RECORDS SUMMARY | 2024-11-05 13:23 | XMS_ITS | Encounter Summary ---
Author Organization [employer] Address [address] [facility] 7t [place] [address] Care Team Providers Care Conveyor Line Bakery Worker Name Role Phone Name, Kiel BAILEY Primary Care Provider [phone] Katlyn Rodriguez PharmD Unavailable [phone] Ania Spencer Unavailable Opal Leyva Unavailable [phone] Reason for Visit * Reason Onset Date Comments Nurse Triage 11/01/2024 Encounter Details Date Type Department Care Team (Late st Contact Info) Description 11/01/2024 Telephone [facility] MEDICINE [address] [place], [place] [phone] Name, MD Kiel [address] [place] [address] Nurse Triage Social History Tobacco Use Types [...] RN - 11/01/2024 11:06 AM EDT No operations developer needed as this magnetic tape typewriter operator speaks Citizen [place]. Call returned to Sarita Puga to triage below at [phone]. Reports pt having a fall on Tuesday. [...] to rule out fractures. agrees to seek [facility] for exam as no sick on site availability on teams at time of call. Reviewed [facility] operating hours and that wait times [...] the hand normally Please contact pt at [phone]. (Citizen [place] Speaker) documented in this encounter Plan of Treatment Upcoming Encounters Date Type Department Care Team (Late st Contact Info) Description 11/15/2024 11:30 AM EDT Clinical Support [address] [address] Opal Steiner RN 11/27/2024 10:30 AM EDT Medication Management [address] [address] Puia, Katlyn, PharmD [address] [place] [address] documented as of this encounter Goals Goal [...] documented as of this encounter Care Teams Conveyor Line Bakery Worker Relationship Specialty Start Date End Date Name, MD Kiel [address] [place], [place] [phone] PCP - General Family Medicine 07/15/15 Katlyn Rodriguez PharmD [address] [place], [place] [phone] Pharmacist Internal Medicine 10/08/22 Ania Spencer 08/20/24 Opal Leyva Registered Nurse 10/29/24 Marta Ovalle Real Estate AgentFurniture Refinisher 05/25/23 documented as of this encounter
--- OUTSIDE RECORDS SUMMARY | 2024-11-05 13:23 | XMS_ITS | Encounter Summary ---
Author Organization [employer] Address [address] [facility] 7t [place] [address] Care Team Providers Care Research Fellow Name Role Phone Name, Kiel BAILEY Primary Care Provider [phone] Katlyn Rodriguez PharmD Unavailable [phone] Ania Spencer Unavailable Opal Leyva Unavailable [phone] Encounter Details Date Type Department Care [...] Description 11/15/2024 11:30 AM EDT Clinical Support [address] [address] Opal Steiner RN 11/27/2024 10:30 AM EDT Medication Management [address] [address] Puia, Katlyn, PharmD [address] [place] [address] documented as of this encounter Goals Goal [...] documented as of this encounter Care Teams Research Fellow Relationship Specialty Start Date End Date Name, MD Kiel [address] [place] [phone] PCP - General Family Medicine 07/15/15 Katlyn Rodriguez PharmD [address] [facility] [place] [phone] Pharmacist Internal Medicine 10/08/22 Ania Spencer 08/20/24 Opal Leyva Registered Nurse 10/29/24 Marta Ovalle Costing AnalystLumber Straightener 05/25/23 documented as of this encounter
--- OUTSIDE RECORDS SUMMARY | 2024-11-05 13:23 | XMS_ITS | Encounter Summary ---
Author Organization [employer] Address [address] [place] [address] 7t [place] [address] Care Team Providers Care Cabinet And Trim Installer Name Role Phone Name, Kiel BAILEY Primary Care Provider [phone] Katlyn Rodriguez PharmD Unavailable [phone] Nehal Ann RN Unavailable [phone] Ania Spencer Unavailable Opal Leyva Unavailable [phone] Reason for Referral * Consultation (Routine) - Closed Specialty Diagnoses / Procedures Referred By Carroll t Referred To Contact Occupational Therapy Diagnoses Weakness of both lower extremities Hemiparesis of left dominant side as late effect of cerebral infarction (CMS/HCC) Lizzie Alfaro NP [address] [place] [address] Phone: tel: fax: [facility] Physical Therapy [address] [place] [address] Phone: tel: fax: Referral ID Status Reason Start Date Expiration Date V isits Requested Visits Authorized [id number] Closed Specialty Services Required 09/06/2024 09/06/2025 20 20 * Consultation (Routine) - Closed Specialty Diagnoses / Procedures Referred By Carroll hoover Referred To Contact Physical Therapy Diagnoses Weakness of both lower extremities Lizzie Alfaro NP [address] [place] [address] Phone: tel: fax: [facility] Physical Therapy [address] [place], [place] Phone: tel: fax: Referral ID Status Reason Start Date Expiration Date V isits Requested Visits Authorized [id number] Closed Specialty Services Required 09/06/2024 09/06/2025 20 20 Encounter Details Date Type Department Care Team (Late st Contact Info) Description 09/06/2024 Orders Only [facility] MEDICINE [address] [place] [address] Lizzie Alfaro NP [address] [place], [place] [phone] Weakness of both lower extremities (Primary Dx); [...] Description 11/15/2024 11:30 AM EDT Clinical Support [address] [address] Opal Steiner RN 11/27/2024 10:30 AM EDT Medication Management [address] [address] Puia, Katlyn, PharmD [address] [place] [address] Scheduled Referrals Name Type Priority Associated Diagnoses Orde r Schedule Referral to Physical Therapy Outpatient Referral Routine Weakness of both lower extremities Expected: 09/06/2024 (Approximate), Expires: 09/06/2025 Referral to Occupational Therapy Outpatient Referral Routine Weakness of both lower extremities Hemiparesis of left dominant side as late effect of cerebral infarction ([facility]/HCC) Expected: 09/06/2024 (Approximate), Expires: 09/06/2025 documented [...] documented as of this encounter Care Teams Cabinet And Trim Installer Relationship Specialty Start Date End Date Name, MD Kiel [address] [place] [address] PCP - General Family Medicine 07/15/15 Katlyn Rodriguez, Bin [address] [place] [address] Pharmacist Internal Medicine 10/08/22 Nehal Ann RN [address] [place] [address] Registered Nurse Family Medicine 08/20/24 10/29/24 Ania Spencer 08/20/24 Opal Leyva Registered Nurse 10/29/24 Marta Ovalle Material Handler 1St ShiftProcedures Rn 05/25/23 documented as of this encounter
--- OUTSIDE RECORDS SUMMARY | 2024-11-05 13:23 | XMS_ITS | Encounter Summary ---
Author Organization [employer] Address [address] [place] [address] 7[address] [place] [address] Care Team Providers Care Signal Apprentice Name Role Phone Name, Kiel BAILEY Primary Care Provider Katlyn Rodriguez PharmD Unavailable Nehal Ann RN Unavailable [phone] Ania Spencer Unavailable Opal Leyva Unavailable [phone] Reason for Referral * Consultation (Routine) - Closed Specialty Diagnoses / Procedures Referred By Contac t Referred To Contact Occupational Therapy Diagnoses Left arm weakness Lizzie Alfaro NP [address] [place] [address] Phone: tel: fax: [facility] Physical Therapy [address] [place] [address] Phone: tel: fax: Referral ID Status Reason Start Date Expiration Date V isits Requested Visits Authorized [id number] Closed Specialty Services Required 09/06/2024 09/06/2025 20 20 Encounter Details Date Type Department Care Team (Late st Contact Info) Description 09/06/2024 Orders Only [facility] MEDICINE [address] [place] [address] Lizzie Alfaro NP [address] [place] [address] Left arm weakness (Primary Dx) Social History [...] 11/15/2024 11:30 AM EDT Clinical Support [address] [address] Opal Steiner RN 11/27/2024 10:30 AM EDT Medication Management [address] [address] Puia, Katlyn, PharmD [address] [place] [address] Scheduled Referrals Name Type Priority Associated Diagnoses [...] documented as of this encounter Care Teams Signal Apprentice Relationship Specialty Start Date End Date Name, MD Kiel [address] [place] [address] PCP - General Family Medicine 07/15/15 Puia, Katlyn, PharmD [address] [place] [address] Pharmacist Internal Medicine 10/08/22 Nehal Ann RN [address] [place] [address] Registered Nurse Family Medicine 08/20/24 10/29/24 Ania Spencer 08/20/24 Opal Leyva Registered Nurse 10/29/24 Marta Ovalle Buckler And LacerManager Of Development 05/25/23 documented as of this encounter
--- OUTSIDE RECORDS SUMMARY | 2024-11-05 13:23 | XMS_ITS | Encounter Summary ---
Author Organization [facility] Address [address] [place] [address] Care Team Providers Care Packaging Operator Name Role Phone Name, Kiel BAILEY Primary Care Provider Unavailabl e Name, Kiel BAILEY Primary Care Provider Unavailabl e Philly Vela DO Primary Care Pro vider Unavailable Name, Kiel BAILEY Primary Care Provider Unavailabl e Encounter Details Date Type Department Care Team Description 12/11/2009 Manager Flight Report Medical Records [address] [place] [address] Gonzalo Valles MD Social History Tobacco Use [...] on filedocumented in this encounter Care Teams Packaging Operator Relationship Specialty Start Date End Date Kiel Shaffer MD PCP - General 05/26/09 04/27/15 Kiel Shaffer MD PCP - General Internal Medicine 04/28/15 05/05/15 Philly Vela DO PCP - General Internal Medicine 05/06/15 08/27/15 Kiel Shaffer MD PCP - General Internal Medicine 08/28/15 documented as of this encounter
--- OUTSIDE RECORDS SUMMARY | 2024-11-05 13:23 | XMS_ITS | Encounter Summary ---
Author Organization [facility] Address [address] [place] [address] Care Team Providers Care Automotive Fuel Injection Servicer Name Role Phone Name, Kiel BAILEY Primary Care Provider Unavailabl e Name, Kiel BAILEY Primary Care Provider Unavailabl e Philly Vela DO Primary Care Pro vider Unavailable Name, Kiel BAILEY Primary Care Provider Unavailabl e Encounter Details Date Type Department Care Team Description 06/14/2012 Fixture Designer Report Medical Records [address] [place] [address] Bright Jesus MD Social History Tobacco Use [...] on filedocumented in this encounter Care Teams Automotive Fuel Injection Servicer Relationship Specialty Start Date End Date Kiel Shaffer MD PCP - General 05/26/09 04/27/15 Kiel Shaffer MD PCP - General Internal Medicine 04/28/15 05/05/15 Philly Vela DO PCP - General Internal Medicine 05/06/15 08/27/15 Kiel Shaffer MD PCP - General Internal Medicine 08/28/15 documented as of this encounter
--- OUTSIDE RECORDS SUMMARY | 2024-11-05 13:23 | XMS_ITS | Encounter Summary ---
Author Organization [facility] Address [address] [place] [address] Care Team Providers Care Fruit Or Nut Grower Name Role Phone Name, Kiel BAILEY Primary Care Provider Unavailabl e Name, Kiel BAILEY Primary Care Provider Unavailabl e Philly Vela DO Primary Care Pro vider Unavailable Name, Kiel BAILEY Primary Care Provider Unavailabl e Encounter Details Date Type Department Care Team Description 11/06/2012 Cinder Dump Crane Operator Report Medical Records [address] [place] [address] Zack Castro Social History Tobacco Use Types [...] on filedocumented in this encounter Care Teams Fruit Or Nut Grower Relationship Specialty Start Date End Date Kiel Shaffer MD PCP - General 05/26/09 04/27/15 Kiel Shaffer MD PCP - General Internal Medicine 04/28/15 05/05/15 Philly Vela DO PCP - General Internal Medicine 05/06/15 08/27/15 Kiel Shaffer MD PCP - General Internal Medicine 08/28/15 documented as of this encounter
== END 2024-11-05 11:42 | disposition home or self-care (01) ==
LOC: HO.HOS 10:26
PROVIDERS: PCP Internal Medicine Geriatric Medicine
DX: S52.514A Nondisplaced fracture of right radial styloid process, initial encounter for closed fracture (principal); M79.641 Pain in right hand
CPT/HCPCS: 29085; 99024

== ENCOUNTER → 2024-11-05 10:26 | Outpatient (BNVA) | payer MEDICAID, SELFPAY | PROVIDERS: PCP Internal Medicine Geriatric Medicine | DX: M79.641 Pain in right hand (principal); S52.514A Nondisplaced fracture of right radial styloid process, initial encounter for closed fracture | CPT/HCPCS: 29085; 99212 ==

== ENCOUNTER 2024-11-07 11:29 | Outpatient (REF) | payer MEDICAID, SELFPAY ==
--- OUTSIDE RECORDS SUMMARY | 2023-11-24 09:53 | XMS_ITS | Encounter Summary ---
Author Organization [facility] Address [address] [place] [address] Care Team Providers Care Powerplant Operator Name Role Phone Name, Kiel BAILEY Primary Care Provider [phone] Encounter Details Date Type Department Care Team (Late st Contact Info) Description 11/24/2023 9:53 AM EDT Hospital Encounter TH HISTORIC ENCOUNTERS EASTERN CONVERSION ONLY Geoffrey-Art Vitale MD [address] [place] [address] Social History Tobacco Use Types [...] 2:17 PM Encounter Date: 11/24/2023 Status: Signed Sapphire Stylus Grinder: Art Davis MD (Physician) CHIEF COMPLAINT: Chief Complaint Patient presents with ? Follow-up Diffuse large B-cell lymphoma Stage III Completed 6 cycles of R-CHOP in July 23, 2018 IDENTIFIER:Sarita Puga is a 58 y.o. female. HPI: The patient returns for follow up of Large B-cell lymphoma. Here with her daughter , who is chinese to japanese director broadcast Patient reports that she has been doing [...] accompanied by her daughter and girlfriend. As Indian to Greenlandic director broadcast assisted with the discussion. She had a [...] of her neck. She was evaluated by hSirin Moraes PA-C 2 weeks ago. Patient had [...] AM EDT Office Visit Orthopedic Surgery - [place] [address] [address] Wesley Garcia DPM [address] [phone] documented as of this encounter Procedures Procedure [...] documented as of this encounter Care Teams Powerplant Operator Relationship Specialty Start Date End Date Name, MD Kiel 4 [place], [place] PCP - General Internal Medicine 08/28/15 documented as of this encounter
--- OUTSIDE RECORDS SUMMARY | 2024-11-06 17:00 | XMS_ITS | Encounter Summary ---
Author Organization [employer] Address [address] [place] [address] [address] [place] [address] Care Team Providers Care Can Sterilizer Name Role Phone Name, Kiel BAILEY Primary Care Provider Katlyn Rodriguez PharmD Unavailable [phone] Ania Spencer Unavailable Opal Leyva Unavailable [phone] Reason for Referral * Consultation (Urgent) - Closed Specialty Diagnoses / Procedures Referred By Carroll hoover Referred To Contact Occupational Therapy Diagnoses Swelling of left hand Lorenzo Chavez MD [address] [place] [address] Phone: tel: fax: [facility] [address] [place] [address] Phone: tel: fax: Referral ID Status Reason Start Date Expiration Date V isits Requested Visits Authorized [id number] Closed Specialty Services Required 11/07/2024 11/07/2025 20 20 Reason for Visit * Reason Comments left hand pain Encounter Details Date Type Department Care Team (Late st Contact Info) Description 11/06/2024 5:00 PM EDT Office Visit [facility] [address] [place] [address] Lorenzo Chavez MD [address] [place] [phone] Swelling of left hand (Primary Dx) Social History Tobacco Use Types [...] Sign Reading Time Taken Comments Blood Pressure 144/83 11/06/2024 5:13 PM EDT Pulse 81 11/06/2024 5:13 PM EDT Temperature 36.2 C (97.2 F) 11/06/2024 5:13 PM EDT Respiratory Rate - - Oxygen Saturation 97% 11/06/2024 5:13 PM EDT Inhaled Oxygen Concentration - - Weight - - Height - - Body Mass Index - - documented in this encounter Progress Notes * Lorenzo Chavez MD - 11/06/2024 5:00 PM EDT Subjective History was provided by the patient and adult daughter. Sarita Puga is a 59 y.o. female who presents for evaluation of left hand swelling and pain on the dorsal aspect of left hand for 2 weeks. Denies any trauma or fall on this hand. However, the patient had recent right hand radial styloid fracture s/p a mechanical fall on 10/06/2024. Saw Ortho yesterday for a thumb spica cast change. Next follow up on 11/27/2024. History of left carpal tunnel release surgery in 11/2023. Patient states she brought up the issue with her left hand, but this was not addressed during her Ortho visit. History of CVA with residual left-sided weakness. Interested in OT. Has Meloxicam for pain. Objective Vitals: 11/06/24 1713 BP: (!) 144/83 BP Location: Left arm Patient Position: Sitting BP Cuff Size: Adult long Pulse: 81 Temp: 97.2 ??F (36.2 ??C) TempSrc: Temporal SpO2: 97% Physical Exam Constitutional: General: She is not in acute distress. Appearance: Normal appearance. She is not ill-appearing, toxic-appearing or diaphoretic. HENT: Head: Normocephalic and atraumatic. Right Ear: External ear normal. Left Ear: External ear normal. Mouth/Throat: Mouth: Mucous membranes are moist. Pharynx: Oropharynx is clear. Eyes: Extraocular Movements: Extraocular movements intact. Conjunctiva/sclera: Conjunctivae normal. Pulmonary: Effort: Pulmonary effort is normal. Musculoskeletal: Cervical back: Neck supple. Comments: Right hand in a short-arm cast; distal fingertips with brisk capillary refills; left handwith edema on the dorsum; mildly tender; moving all fingers; no erythema Skin: General: Skin is warm and dry. Neurological: General: No focal deficit present. Mental Status: She is alert and oriented to person, place, and time. Psychiatric: Mood and Affect: Mood normal. Behavior: Behavior normal. No visits with results within 2 Day(s) from this visit. Latest known visit with results is: Medication Management on 10/02/2024 Component Date Value Ref Range Status Hemoglobin A1C 10/02/2024 7.5 (A) 4.0 - 5.7 % Final Sarita was seen today for left hand pain. Diagnoses and all orders for this visit: Swelling of left hand (Primary) - XR Hand 3+ Views Left; Future - Referral to Occupational Therapy; Future Patient presents with 2-week duration of left hand swelling and pain Recent right hand radial styloid fracture s/p a mechanical fall Unsure if she injured left hand during that time Underlying left-sided weakness since her CVA History of left carpal tunnel release surgery in 11/2023 Has Meloxicam for pain Will check X-ray of left hand Referral to Occupational Therapy Advised to contact the clinic if no improvement of symptoms Indications for UC/ER use reviewed documented in this encounter Plan of Treatment Upcoming Encounters Date Type Department Care Team (Late st Contact Info) Description 11/15/2024 11:30 AM EDT Clinical Support [facility] [address] [place] [address] Opal Steiner RN 11/27/2024 10:30 AM EDT Medication Management [address] [address] PuiaPremasa, PharmD [address] [place] [phone] Scheduled Referrals Name Type Priority Associated Diagnoses Order Schedule Referral to Occupational Therapy Outpatient Referral Urgent Swelling of left hand Expected: 11/06/2024 (Approximate), Expires: 11/06/2025 documented as of this encounter Goals Goal Patient Goal Type Associated Problems Recent Progress Patient-Stated? Author Record your blood pressure once per day Blood Pressure No Puia, Katlyn, PharmD Blood Pressure < 140/90 Blood Pressure 144/83(2024 5:13 PM EDT) No Puia, Katlyn, PharmD Hemoglobin A1c < 7 Result Component 7.5( 11:12 AM EDT) No Puia, Katlyn, PharmD Record your blood sugar as directed Result Component No Puia, Katlyn, PharmD documented as of this encounter Procedures Procedure Name Priority Date/Time Associated Diagnosis Comments XR HAND 3+ VIEWS LEFT Routine 11/07/2024 12:00 PM EDT Swelling of left hand documented in this encounter Results * XR Hand 3+ Views Left (11/07/2024 12:00 PM EDT) Anatomical Region Laterality Modality Upper Extremities, Hand Left Radiogra phic Imaging 11/07/2024 12:0 0 PM EDT Narrative 11/07/2024 12:20 PM EDT [facility] [address] [place] [address] XRay Report Signed Patient: Sarita Puga MR#: [id number] : 1965 Acct:[id number] Age/Sex: 59 / F ADM Date: 11/07/24 Loc: [facility] Attending Dr: Lorenzo Chavez MD Ordering Physician: Lorenzo Chavez MD Date of Service: 11/07/24 Procedure(s): XR hand LT min 3V Accession Number(s): [id number] cc: Lorenzo Chavez MD Reason for Exam: PAIN EXAMINATION: XR HAND, LEFT CLINICAL INFORMATION: PAIN and swelling minute marginal sites are evident involving the DIP joints. Small marginal ossified is are seen at the first CMC joint. There is juxta-articular osteopenia. COMPARISON: None available. TECHNIQUE: PA, lateral, and oblique views of the left hand. FINDINGS: There is patchy distal articular osteopenia. Joint spaces are preserved. Minute marginal osteophytes are evident in the DIP joints of the second, third, fourth digit and the first CMC joint. XR/XR hand LT min 3V IMPRESSION: Patchy juxta-articular osteopenia is a nonspecific finding but can be present with complex regional pain syndrome. Electronically signed by: Zohaib Murray MD 11/07/2024 12:17 PM EDT Dictated By: Zohaib Murray MD Signed By: <Electronically signed by Zohaib Murray MD in OV> 11/07/24 1217 DD/ 1200 TD/TT: 11/07/24 1202 Bindery Leadperson: Procedure Note Donotuseinterpreter, Image - 11/07/2024 [facility] [address] [place] [address] XRay Report Signed Patient: Sarita Puga MMR#: [id number] : 1965Acct:[id number] Age/Sex: 59 / FADM Date: 11/07/24 [facility]: Lorenzo Chavez MD Ordering Physician: Lorenzo Chavez MD Date of Service: 11/07/24 Procedure(s): XR hand LT min 3V Accession Number(s): [id number] cc: Lorenzo Chavez MD Reason for Exam: PAIN EXAMINATION: XR HAND, LEFT CLINICAL INFORMATION: PAIN and swelling minute marginal sites are evident involving the DIP joints. Small marginal ossified is are seen at the first CMC joint. There is juxta-articular osteopenia. COMPARISON: None available. TECHNIQUE: PA, lateral, and oblique views of the left hand. FINDINGS: There is patchy distal articular osteopenia. Joint spaces are preserved. Minute marginal osteophytes are evident in the DIP joints of the second, third, fourth digit and the first CMC joint. XR/XR hand LT min 3V IMPRESSION: Patchy juxta-articular osteopenia is a nonspecific finding but can be present with complex regional pain syndrome. Electronically signed by: Zohaib Murray MD 11/07/2024 12:17 PM EDT Dictated By: Zohaib Murray MD Signed By: <Electronically signed by Zohaib Murray MD in OV> 11/07/24 1217 DD/ 1200 TD/TT: 11/07/24 1202 Bindery Leadperson: Lorenzo Chavez MD IMG XR PROCEDURES Edited Result - Final documented in this encounter Visit Diagnoses Diagnosis Swelling of left hand- Primary documented in this encounter Additional Health Concerns Assessment Noted Time PHQ-9 Depression Total Score: 7 09/05/19 25 11:46 AM EDT documented as of this encounter Care Teams Can Sterilizer Relationship Specialty Start Date End Date Name, MD [facility] [address] [place], [place] [phone] PCP - General Family Medicine 07/15/15 Katlyn Rodriguez PharmD [address] [place], [place] [phone] Pharmacist Internal Medicine 10/08/22 Ania Spencer 08/20/24 Opal Leyva Registered Nurse 10/29/24 Marta Ovalle Painter OrdnanceLivestock Nutritionist 05/25/23 documented as of this encounter
--- NOTE | ~2024-11-07 | XR_ITS ---
EXAMINATION: XR HAND, LEFT CLINICAL INFORMATION: PAIN and swelling minute marginal sites are evident involving the DIP joints. Small marginal ossified is are seen at the first CMC joint. There is juxta-articular osteopenia. COMPARISON: None available. TECHNIQUE: PA, lateral, and oblique views of the left hand. FINDINGS: There is patchy distal articular osteopenia. Joint spaces are preserved. Minute marginal osteophytes are evident in the DIP joints of the second, third, fourth digit and the first CMC joint. XR/XR hand LT min 3V IMPRESSION: Patchy juxta-articular osteopenia is a nonspecific finding but can be present with complex regional pain syndrome. Electronically signed by: Zohaib Murray MD 11/07/2024 12:17 PM EDT
--- OUTSIDE RECORDS SUMMARY | 2024-11-07 14:51 | XMS_ITS | Encounter Summary ---
Author Organization [employer] Address [address] [facility] [address] [place] [address] Care Team Providers Care Braille Translator Name Role Phone Name, Kiel BAILEY Primary Care Provider Katlyn Rodriguez PharmD Unavailable [phone] Nehal Ann RN Unavailable Ania Spencer Unavailable Opal Leyva Unavailable [phone] Reason for Visit * Reason Onset Date Comments Reschedule 08/01/2023 Encounter Details Date Type Department Care Team (Late st Contact Info) Description 08/01/2023 Telephone [facility] [address] [place], [place] [phone] Name, MD Kiel [address] [place], [place] [phone] Reschedule Social History Tobacco Use Types Packs/Day [...] 08/01/2023 9:55 AM EDT Triage call with [place] [facility] History Professor ID [id number] . Pt reports Covid + test this [...] 08/01/2023 9:04 AM EDT Patient cancelled todays [facility] appt today. Pt's [facility]ER appt has been rescheduled for chronic pain [...] AM EDT Tc from pt requesting r/s CARD HANGER appt, stated is sick and suspect is COVID documented in this encounter Plan of Treatment Upcoming Encounters Date Type Department Care Team (Late st Contact Info) Description 11/15/2024 11:30 AM EDT Clinical Support [facility] [address] [place] [address] Opal Steiner, MARINA 11/27/2024 10:30 AM EDT Medication Management [facility] [address] [place] [address] Katlyn Rodriguez, PharmD [address] [place] [address] documented as of this encounter Goals Goal [...] documented as of this encounter Care Teams Braille Translator Relationship Specialty Start Date End Date Name, MD Kiel [address] [place] [address] PCP - General Family Medicine 07/15/15 Puia, Katlyn, PharmD [address] [place] [address] Pharmacist Internal Medicine 10/08/22 Nehal Ann RN [address] [place] [address] Registered Nurse Family Medicine 08/20/24 10/29/24 Ania Spencer 08/20/24 Opal Leyva Registered Nurse 10/29/24 Marta Ovalle Stock Broker SupervisorAutomatic Line Set Up Mechanic 05/25/23 documented as of this encounter
--- OUTSIDE RECORDS SUMMARY | 2024-11-07 14:51 | XMS_ITS | Encounter Summary ---
Author Organization [employer] Address [address] [place] [address] [address] [place] [address] Care Team Providers Care Former Hand Name Role Phone Name, Kiel BAILEY Primary Care Provider [phone] Katlyn Rodriguez PharmD Unavailable [phone] Nehal Ann RN Unavailable [phone] Ania Spencer Unavailable Opal Leyva Unavailable [phone] Encounter Details Date Type Department Care Team (Late st Contact Info) Description 08/26/2022 Orders Only [facility] [address] [place] [address] Leia Gonzales LPN Social History Tobacco Use [...] 11/15/2024 11:30 AM EDT Clinical Support [address] [address] Opal Steiner, RN 11/27/2024 10:30 AM EDT Medication Management [address] [address] Katlyn Rodriguez PharmD [address] [place] [phone] documented as of this encounter Visit Diagnoses Not on filedocumented in this encounter Additional Health Concerns Assessment Noted Time PHQ-9 Depression Total Score: 7 07/15/19 2:39 PM EDT documented as of this encounter Care Teams Former Hand Relationship Specialty Start Date End Date Name, MD Kiel [address] [place] [address] PCP - General Family Medicine 07/15/15 Katlyn Rodriguez, PharmD [address] [place] [address] Pharmacist Internal Medicine 10/08/22 Nehal Ann, MARINA [address] [place] [address] Registered Nurse Family Medicine 08/20/24 10/29/24 Ania Spencer 08/20/24 Opal Leyva Registered Nurse 10/29/24 Marta Ovalle Solar Mechanical EngineerMercury Washer 05/25/23 documented as of this encounter
--- OUTSIDE RECORDS SUMMARY | 2024-11-07 14:51 | XMS_ITS | Clinical Summary ---
Author Organization [employer] Address [address] [place] [address] [address] [place] [address] Care Team Providers Care Digital Performance Analyst Name Role Phone Name, Kiel BAILEY Primary Care Provider [phone] Katlyn Rodriguez PharmD Unavailable [phone] Ania Spencer Unavailable Opal Leyva Unavailable [phone] Allergies Active Allergy Reactions Criticality Noted [...] complication, with long-term current use of insulin ([facility]),Hyper triglyceridemia Take 2 capsules (2 [...] long-term current use of insulin (CMS/[facility]) Inject 15 mg under the skin 1 (one) time per week. 2 mL 06/08/19 25 Active ezetimibe (Zetia) 10 MG tabletIndicatio ns:Type 2 diabetes mellitus with other specified complication, with long-term current use of insulin ([facility]) TAKE 1 TABLET BY MOUTH EVERY MORNING [...] complication, with long-term current use of insulin ([facility]),Histo ry of stroke,Tobacco use disorder,Hypert riglyceridemia Take [...] complication, with long-term current use of insulin ([facility]) Chew 1 tablet (81 mg) in the evening. 90 tablet 08/23/19 25 Active metFORMIN XR (Glucophage-XR) 500 MG 24 hr tabletIndicatio ns:Type 2 diabetes mellitus with obesity (CMS/HCC) ([facility]) Take 1 tablet (500 mg) by mouth at bedtime. 90 tablet 3 08/23/19 25 Active losartan (Cozaar) 50 MG tabletIndicatio ns:Essential hypertension TAKE 1 TABLET BY MOUTH EVERY MORNING 90 tablet 09/13/19 25 Active meloxicam (Mobic) 7.5 MG tablet TAKE 1 TABLET BY MOUTH ONCE DAILY 30 tablet 09/13/19 25 Active TechLite Pen [place] 32G X 4 MM miscIndications :Type 2 diabetes mellitus with other specified complication ([facility]) USE DIRECTED FOUR TIMES DAILY 100 each 09/29/19 25 Active Blood Glucose Monitoring Suppl (FreeStyle Lite) deviceIndicatio ns:Type 2 diabetes mellitus with other specified complication, with long-term current use of insulin ([facility]) Inject 1 each under the skin 2 times daily. Use to test blood sugar as directed 1 each 10/03/19 25 Active glucose blood (FREESTYLE LITE) test stripIndication s:Type 2 diabetes mellitus with other specified complication, with long-term current use of insulin ([facility]) Use to test blood sugar 2 times daily 50 strip 10/03/19 25 Active TRUEplus Lancets 33G miscIndications :Type 2 diabetes mellitus with other specified complication, with long-term current use of insulin ([facility]) Use to test blood sugar twice daily [...] complication, with long-term current use of insulin ([facility]) Inject 44 Units under the skin at [...] complication, with long-term current use of insulin ([facility]) Inject 40 Units under the skin at [...] to the hospital Case was presented to [facility] emergency room Hemiparesis of left dominant side 08/11/2024 Assessment & Plan (08/17/2024 1:36 PM EDT): Patient will benefit from PT evaluation and after evaluation at the hospital to be referred to acute PT center Cerebrovascular accident (CVA) 08/11/2024 History of stroke 07/30/2024 Cerebellar mass 06/28/2024 Chronic, continuous use of opioids 11/29/2023 Overview (11/29/2023): Dx: OA knee Tx: oxycodone 10mg BID EDITOR DICTIONARY last signed: 05/03/23 Chronic pain syndrome 05/03/2023 [...] PM EST): I presented the case to [facility] emergency room, patient will go [...] tolerate CPAP On nocturnal oxygen Follows with [facility] pulmonary ([place]) Cocaine abuse, episodic use 06/17/2010 [...] for Paxlovid sent to the pharmacy -Utilized [place] drug interaction photo checker to assess interactions with current med [...] Encounters Date Type Department Care Team Description 11/06/2024 5:00 PM EDT Office Visit [facility] [address] [place] [address] Lorenzo Chavez MD Swelling of left hand (Primary Dx) 11/06/2024 Travel 11/02/2024 Results Follow-Up [address] [address] aSrita Baker MD XR Shoulder 2+ Views Left 11/01/2024 1:00 PM EDT Office Visit [address] [address] Sarita Baker MD Acute bilateral low back pain without sciatica; Acute pain of left shoulder; Bilateral hand pain; Hemiparesis affecting left side as late effect of cerebrovascular accident ([facility]/HCC) 11/01/2024 Travel 11/01/[address] [phone] Kiel Shaffer MD Nurse Triage 10/29/[address] [phone] Katlyn Rodriguez, PharmD 10/29/2024 Travel 10/18/[address] [place] [address] Kiel Shaffer MD Psychophysiological insomnia 10/18/[address] [address] Lizzie Alfaro NP Cerebellar mass; Chronic intractable headache, unspecified headache type 10/17/2024 Patient Outreach [facility] [address] [place], [place] [phone] Kiel Shaffer MD Care Coordination (C3 f/u call- LVM) 10/16/2024 Patient Outreach [facility] [address] [place], [place] [phone] Kiel Shaffer MD 10/09/2024 2:00 PM EDT Office Visit [address] [address] Sarita Baker MD Essential hypertension (Primary Dx); Nondisplaced fracture of right radial styloid process, initial encounter for closed fracture 10/09/2024 Travel 10/09/[address] [address] Kiel Shaffer MD ER Follow-up; Nurse Triage 10/09/[address] [address] Kiel Shaffer MD No Show 10/06/2024 Orders Only [facility] External Provider, [facility] 10/05/[address] [address] Kiel Shaffer MD Referral 10/04/2024 Patient Outreach [address] [phone] Kiel Shaffer MD Care Management (C3 TC #2-lvm) 10/02/2024 10:40 AM EDT Office Visit [address] [address] Victorino Graves MD Acute otitis externa of left ear, unspecified type (Primary Dx) 10/02/[address] [address] Kiel Shaffer MD 10/02/2024 Travel 09/28/2024 Refill [facility] [place] [address] Kiel Shaffer MD Type 2 diabetes mellitus with other specified complication ([facility]) 09/21/2024 Patient Outreach [facility] [place] [address] Kiel Shaffer MD Care Management ([facility] TC #1-lvm) 09/19/2024 9:00 AM EDT Clinical Support [facility] [place] [address] Opal Steiner, RN Long-term current use of opiate analgesic (Primary Dx) 09/19/2024 Refill [facility] [place] [address] Opal Steiner, RN Cerebellar mass; Chronic intractable headache, unspecified headache type 09/19/2024 Travel 09/12/2024 Refill [facility] [place] [address] Kiel Shaffer MD 09/10/2024 Refill [facility] [place] [address] Katlyn Rodriguez, AngieD Essential hypertension 09/06/2024 Orders Only [facility] [place] [address] Lizzie Alfaro, GERARDO Left arm weakness (Primary Dx) 09/06/2024 Orders Only [facility] [place] [address] Lizzie Alfaro NP Weakness of both lower extremities (Primary Dx); Hemiparesis of left dominant side as late effect of cerebral infarction ([facility]) 09/06/2024 Telephone [facility] [place] [address] Kiel Shaffer MD PT Order 09/06/2024 Telephone [facility] [place] [address] Kiel Shaffer MD Requesting Call Back 09/05/2024 11:30 AM EDT Office [address] [place] [address] Sravanthi Robbins MD Type 2 diabetes mellitus with other specified complication, with long-term current use of insulin ([facility]) (Primary Dx); Left ear pain; Impacted cerumen of right ear; Excessive cerumen in ear canal, left; Essential hypertension; Dietary counseling; Exercise counseling; Class 3 severe obesity due to excess calories with serious comorbidity and body mass index (BMI) of 40.0 to 44.9 in adult 09/05/2024 Telephone [facility] [address] [place] [address] Kiel Shaffer MD Medication Question; Prior Authorization 09/05/2024 Patient Outreach [facility] [address] [place] [address] Kiel Shaffer MD 09/05/2024 Travel 09/05/[address] [address] Kiel Shaffer MD Prior Authorization 09/05/[address] [address] Kiel Shaffer MD Nurse Triage 09/04/2024 Plan of Care Documentation [address] [address] 09/04/[address] [address] Kiel Shaffer MD Cerebellar mass; Chronic intractable headache, unspecified headache type 09/04/2024 Patient Outreach [facility] [address] [place], [place] [phone] Kiel Shaffer MD Care Coordination ([facility] initial assessment/ enrollment) 09/04/2024 Patient Outreach [facility] [address] [place] [address] Kiel Shaffer MD 09/03/2024 5:40 PM EDT Office Visit [facility] [address] [place] [address] Sergio Troy MD Non-recurrent acute suppurative otitis media of left ear without spontaneous rupture of tympanic membrane (Primary Dx) 09/03/2024 Orders Only [facility] [address] [place] [address] Sergio Troy MD 09/03/2024 Travel 08/30/2024 Telephone [facility] [address] [place] [address] Kiel Shaffer MD Referral 08/29/2024 Telephone [facility] [address] [place] [address] Kiel Shaffer MD Medication Question 08/22/2024 Refill [facility] [address] [place] [address] Katlyn Rodriguez PharmD Type 2 diabetes mellitus with other specified complication, with long-term current use of insulin (CMS/HCC); Type 2 diabetes mellitus with obesity (CMS/HCC) (CMS/HCC) 08/22/2024 Patient Outreach [facility] [address] [place] [address] Kiel Shaffer MD 08/22/2024 Refill [facility] [address] [place] [address] Kiel Shaffer MD Urticaria 2024 Patient Outreach [facility] [address] [place] [address] Kiel Shaffer MD Care Coordination (C3/CM Outreach) 2024 Refill [facility] [address] [place] [address] Katlyn Rodriguez PharmD Type 2 diabetes mellitus with other specified complication, with long-term current use of insulin (CMS/HCC); Type 2 diabetes mellitus with obesity (CMS/HCC) (CMS/HCC) 08/20/2024 1:45 PM EDT Office Visit [facility] [address] [place] [address] Kiel Shaffer MD Thalamic pain syndrome (Primary Dx) 08/20/2024 Travel 08/20/2024 Patient Outreach [facility] [address] [place] [address] Kiel Shaffer MD Care Coordination (C3/CM Chart Review) 08/20/2024 Telephone [facility] [address] [place] [address] Kiel Shaffer MD Appointment Request 08/20/2024 Telephone [facility] [address] [place] [address] Kiel Shaffer MD ER Follow-up 08/20/[address] [address] Opal Steiner, RN NCNS for EDITOR DICTIONARY RV today 08/20/2024 Patient Outreach [facility] [address] [place] [address] Kiel Shaffer MD Care Coordination (C3CM Chart review) 08/20/2024 Patient Outreach [address] [address] Kiel Shaffer MD 08/17/2024 9:20 AM EDT Office Visit [facility] WALK[facility] [address] [address] Sarita Baker MD Other chest pain; Gait instability; Hemiparesis of left dominant side as late effect of cerebral infarction ([facility]) 08/17/[address] [address] Kiel Shaffer MD Referral 08/17/[address] [address] Sarita Baker MD Nurse Triage 08/17/2024 Travel 08/16/[address] [address] Katlyn Rodriguez, AngieD Prior Authorization (CG; Shira 3) 08/16/2024 Travel 08/15/2024 9:30 AM EDT Clinical Support [address] [address] Meghan Ramirez, MARINA Bilateral impacted jay 08/15/2024 Travel 08/15/2024 Refill [facility] [address] [address] Victorino Graves MD 08/13/[address] [address] Renetta Power RN 08/11/2024 9:20 AM EDT Office Visit [facility] [address] [place] [address] Name, MD Kiel Hemiparesis of left dominant side, unspecified hemiparesis etiology (CMS/HCC) (Primary Dx); Dizziness; Frequent falls; Cerebrovascular accident (CVA), unspecified mechanism (CMS/HCC); Bilateral impacted cerumen 08/11/2024 Travel 08/07/2024 Telephone [facility] [address] [place] [address] Name, MD Kiel Nurse Triage 08/07/2024 Refill [facility] [address] [place] [address] Name, MD Kiel Cerebellar mass; Chronic intractable headache, unspecified headache type from Last 3 Months Immunizations Immunization Administration Dates Next Due HepB-CpG 11/05/2022,10/08/2022 Influenza Injectable Quadriv alant Preservative Free IIV4 MDCK 11/05/2022 Influenza Whole 11/06/2010 Influenza injectable quadriv alent IIV4 with preservative 01/09/2016 Influenza injectable quadriv alent preservative free 11/13/2021,01/21/2021,01/07/2020,12/13,01/30/2018 Influenza, IIV3, injectable 02/03/2016,1 ,12/16/2013,02/23,11/02/2012,10/26/2011,01/13/2011 ,11/03/2010,11/21/2009 Influenza, seasonal, injecta ble, preservative free 11/29/2023 Novel [id number], all formulations 05/31/2009 Pneumococcal Conjugate PCV 20 [...] F) 11/06/2024 5:13 PM EDT Respiratory Rate 21 11/01/2024 12:08 PM EDT Oxygen Saturation 97% 11/06/2024 5:13 PM EDT Inhaled Oxygen Concentration - - Weight 108 kg (237 lb 2 oz) 11/01/2024 12:08 PM EDT Height 160 cm (5' 3 ) 11/01/2024 12:08 PM EDT Body Mass Index 42 11/01/2024 12:08 PM EDT Plan of Treatment Upcoming Encounters Date Type Department Care Team (Late st Contact Info) Description 11/15/2024 11:30 AM EDT Clinical Support [facility] [address] [place] [address] Opal Steiner, MARINA 11/27/2024 10:30 AM EDT Medication Management [facility] [address] [place] [address] Katlyn Rodriguez, PharmD [address] [place] [address] Health Maintenance Due Date Last Done Comments [...] 12:00 PM EDT Swelling of left hand XR SHOULDER 2+ VIEWS LEFT Routine 11/01/2024 [...] complication, with long-term current use of insulin ([facility]) POCT KEELEY-14 URINE DRUG SCREEN Routine 09/19/2024 9:09 AM EDT Long-term current use of opiate analgesic DE REMOVAL IMPACTED CERUMEN INSTRUMENTATION UNILAT Routine 09/05/2024 11:12 AM EDT Impacted cerumen of right ear Excessive cerumen in ear canal, left US RENAL BI Routine 08/22/2024 12:11 PM EDT ECG 12-LEAD Routine 2024 1:14 PM EDT Other chest pain CT HEAD WO CONTRAST Routine 08/17/2024 1 0:10 AM EDT XR FEMUR 2+ VIEWS RIGHT Routine 08/18/19 25 10:02 AM EDT XR LUMBAR SPINE 2-3 [...] complication, with long-term current use of insulin ([facility]) Rib pain on left side HM COLONOSCOPY Routine 07/01/2022 4:37 PM EDT DIABETES EYE EXAM Routine 05/26/2022 from Last 3 Months or Most Recently Relevant to Health Maintenance Results * XR Hand 3+ Views Left (11/07/2024 12:00 PM EDT) Anatomical Region Laterality Modality Upper Extremities, Hand Left Radiogra phic Imaging 11/07/2024 12:0 0 PM EDT Narrative 11/07/2024 12:20 [place] [address] XRay Report Signed Patient: Sarita Puga MR#: [id number] 92 : 1965 Acct:[id number] Age/Sex: 59 / F ADM Date: 11/07/24 Loc: HO.HHCX Attending Dr: Lorenzo Chavez MD Ordering Physician: Lorenzo Chavez MD Date of Service: 11/07/24 Procedure(s): XR hand LT min 3V Accession Number(s): [id number] cc: Lorenzo Chavez MD Reason for Exam: [...] Zohaib Murray MD 11/07/2024 12:17 PM EDT RP Dictated By: Zohaib Murray MD Signed By: <Electronically signed by Zohaib Murray MD in OV> 11/07/24 1217 DD/ 1200 TD/TT: 11/07/24 1202 Assembly Riveter: Procedure Note Donotuseinterpreter, Image - 11/07/[address] [address] XRay Report Signed Patient: Sarita Puga [facility]#: [id number] 92 : 1965Acct:[id number] Age/Sex: 59 / FADM Date: 11/07/24 Loc: HO.HHCX Attending Dr: Lorenzo Chavez MD Ordering Physician: Lorenzo Chavez MD Date of Service: 11/07/24 Procedure(s): XR hand LT min 3V Accession Number(s): [id number] cc: Lorenzo Chavez MD Reason for Exam: [...] Zohaib Murray MD 11/07/2024 12:17 PM EDT RP Dictated By: Zohaib Murray MD Signed By: <Electronically signed by Zohaib Murray MD in OV> 11/07/24 1217 DD/ 1200 TD/TT: 11/07/24 1202 Assembly Riveter: us Lorenzo Chavez MD IMG XR PROCEDURES Edited Result - Final * XR Shoulder 2+ Views Left (11/01/2024 3:06 PM EDT) Anatomical Region Laterality Modality Upper Extremities, Shoulder Left Radi ographic Imaging 11/01/2024 3:06 PM EDT Narrative 11/01/2024 3:21 PM EDT [address] [address] XRay Report Signed Patient: Sarita Puga MR#: [id number] 92 : 1965 Acct:[id number] Age/Sex: 59 / F ADM Date: 11/01/24 Loc: HO.HHCX Attending Dr: Sarita Gonzalez MD Ordering Physician: Sarita Baker MD Date of Service: 11/01/24 Procedure(s): XR shoulder LT min 2V Accession Number(s): [id number] cc: Sarita Baker MD; Name,Kiel BAILEY Reason [...] Murray MD in OV> 11/01/24 1518 DD/ 150 TD/TT: 11/01/241507 Assembly Riveter: Procedure Note Donotyouter, Image - 11/01/[address] [address] XRay Report Signed Patient: Sarita Puga MMR#: [id number] 92 : 1965Acct:[id number] Age/Sex: 59 / FADM Date: 11/01/24 [facility]: Sarita Gonzalez MD Ordering Physician: Sarita Baker MD Date of Service: 11/01/24 Procedure(s): XR shoulder LT min 2V Accession Number(s): [id number] cc: Sarita Baker MD; Name,Kiel BAILEY Reason [...] Murray MD in OV> 11/01/24 1518 DD/ 150 TD/TT: 11/01/241507 Assembly Riveter: us Sarita Gonzalez MD IMG XR PROCEDURES Fin al Result * XR Lumbar Spine 2-3 Views (11/01/2024 2:27 PM EDT) Only the most recent of2 resultswithin the time period is included. Anatomical Region Laterality Modality Spine, L-spine Radiographic Diana ging 11/01/2024 2:27 PM EDT Narrative 11/01/2024 3:23 PM EDT [facility] [address] [place] [address] XRay Report Signed Patient: Sarita Puga MR#: [id number] 92 : 1965 Acct:[id number] Age/Sex: 59 / F ADM Date: 11/01/24 Loc: HO.HHCX Attending Dr: Sarita Gonzalez MD Ordering Physician: Sarita Baker MD Date of Service: 11/01/24 Procedure(s): XR lumbar spine 2-3V Accession Number(s): [id number] cc: Sarita Baker MD; Name,Kiel BAILEY Reason [...] 11/01/24 1520 DD/ 1427 TD/TT: 11/01/24 1508 Assembly Riveter: Procedure Note Donotuseinterpreter, Image - 11/01/2024 [facility] [address] [place] [address] XRay Report Signed Patient: Sarita Puga MMR#: [id number] 92 : 1965Acct:[id number] Age/Sex: 59 / FADM Date: 11/01/24 [facility] Dr: Sarita Gonzalez MD Ordering Physician: Sarita Baker MD Date of Service: 11/01/24 Procedure(s): XR lumbar spine 2-3V Accession Number(s): [id number] cc: Sarita Baker MD; Name,Kiel BAILEY Reason [...] 11/01/24 1520 DD/ 1427 TD/TT: 11/01/24 1508 Assembly Riveter: us Sarita Gonzalez MD IMG XR PROCEDURES Fin al Result * XR Hand 3+ Views Right (10/06/2024 5:17 PM EDT) Anatomical Region Laterality Modality Upper Extremities, Hand Right [facility] 10/06/2024 5:17 PM EDT Narrative 10/06/2024 5:18 PM EDT [address] [address] XRay Report Signed Patient: Sarita Puga MR#: [id number] 92 : 1965 Acct:[id number] Age/Sex: 59 / F ADM Date: 10/06/24 Loc: HO.ED Attending Dr: Ordering Physician: Justina Perez NP Date of Service: 10/06/24 Procedure(s): XR hand RT min 3V Accession Number(s): [id number] cc: Name,Kiel BAILEY; Justina Perez NP CLINICAL [...] in OV> 10/06/241717 DD/ 16 TD/TT: 10/06/241716 Assembly Riveter: Procedure Note Donotuseinterpreter, Image - 10/06/2024 [place] [address] XRay Report Signed Patient: Sarita Puga [facility]#: [id number] 92 : 1965Acct:[id number] Age/Sex: 59 / FADM Date: 10/06/24 Loc: HO.ED Attending Dr: Ordering Physician: Justina Perez NP Date of Service: 10/06/24 Procedure(s): XR hand RT min 3V Accession Number(s): [id number] cc: Name,Kiel BAILEY; Justina Perez NP CLINICAL [...] in OV> 10/06/241717 DD/ 16 TD/TT: 10/06/241716 Assembly Riveter: [facility] External Provider IMG XR PROCEDURES Edited Result - Final * XR Wrist 3+ Views Right (10/06/2024 5:12 PM EDT) Anatomical Region Laterality Modality Upper Extremities, Wrist Right Radiogr aphic Imaging 10/06/2024 5:12 PM EDT Narrative 10/06/2024 5:14 PM EDT [place] [address] XRay Report Signed Patient: Sarita Puga MR#: [id number] 92 : 1965 Acct:[id number] Age/Sex: 59 / F ADM Date: 10/06/24 Loc: .ED Attending Dr: Ordering Physician: Justina Perez NP Date of Service: 10/06/24 Procedure(s): XR wrist RT min 3V Accession Number(s): [id number] cc: Name,Kiel BAILEY; Justina Perez NP CLINICAL [...] in OV> 10/06/241712 DD/ 11 TD/TT: 10/06/241711 Assembly Riveter: Procedure Note Donotuseinterpreter, Image - 10/06/[address] [address] XRay Report Signed Patient: Sarita Puga MMR#: [id number] 92 : 1965Acct:[id number] Age/Sex: 59 / FADM Date: 10/06/24 Loc: HO.ED Attending Dr: Ordering Physician: Justina Perez NP Date of Service: 10/06/24 Procedure(s): XR wrist RT min 3V Accession Number(s): [id number] cc: Name,Kiel BAILEY; Justina Perez NP CLINICAL [...] in OV> 10/06/241712 DD/ 11 TD/TT: 10/06/241711 Assembly Riveter: [facility] External Provider IMG XR PROCEDURES [...] - 09/19/2024 9:09 AM EDT UTOX cup Lot#[id number] Exp. 11/27/25 Internal Pass Control Kiel Shaffer MD POINT OF CARE TEST ENTER/EDIT OR DERABLES Final Result * DE REMOVAL IMPACTED CERUMEN INSTRUMENTATION UNILAT (09/05/2024 11:12 AM EDT) Sravanthi Ramirez MD - 09/05/2024 11:12 AM EDT Sravanthi Robbins MD 09/10/2024 10:23 AM Ear Cerumen Removal Date/Time: 09/05/2024 11:12 AM Performed by: Madalyn Garcia RN Authorized by: Sravanthi Robbins MD Consent: Consent obtained: Verbal Consent given by: Patient Risks discussed: Infection, pain, incomplete removal and dizziness Alternatives discussed: No treatment and delayed treatment [place] protocol: Patient identity confirmed: Verbally with patient [...] PM EDT Narrative 08/22/2024 12:12 PM EDT [address] [address] Ultrasound Report Signed Patient: Sarita Puga MR#: [id number] 92 : 1965 Acct:[id number] Age/Sex: 59 / F ADM Date: 08/21/24 Loc: HO.US Attending Dr: Cherelle ROMO Ordering Physician: Cherelle Trujillo Date of Service: 08/21/24 Procedure(s): US renal BI Accession Number(s): [id number] cc: Cherelle Trujillo; Name,Kiel BAILEY CLINICAL HISTORY: [...] 08/22/24 1212 DD/ 1211 TD/TT: 08/22/24 1211 Assembly Riveter: Procedure Note Donotuseinterpreter, Image - 08/22/[address] [address] Ultrasound Report Signed Patient: Sarita Puga MMR#: [id number] 92 : 1965Acct:[id number] Age/Sex: 59 / FADM Date: 08/21/24 Loc: HO.US Attending Dr: Cherelle ROMO Ordering Physician: Cherelle Trujillo Date of Service: 08/21/24 Procedure(s): US renal BI Accession Number(s): [id number] cc: Cherelle Trujillo [facility]; Name,Kiel BAILEY CLINICAL HISTORY: N20.0 - Calculus [...] 08/22/24 1212 DD/ 1211 TD/TT: 08/22/24 1211 Assembly Riveter: us [facility] External Provider IMG US PROCEDURES Final Result * ECG 12 lead (2024 1:14 PM EDT) Narrative Sarita Baker MD - 2024 1:14 PM EDT NSR Sarita Gonzalez MD ECG ORDERABLES Final Result * CT Head w/o Contrast (08/17/2024 10:10 AM EDT) Anatomical Region Laterality Modality Head, Neck Computed Tomogra phy 08/17/2024 10:1 0 AM EDT Narrative 08/17/2024 11:32 AM EDT [place] [address] CT Scan Report Signed Patient: Sarita Puga MR#: [id number] 92 : 1965 Acct:[id number] Age/Sex: 58 / F ADM Date: 08/17/24 Loc: HO.ED Attending Dr: Ordering Physician: Natalie Martell Date of Service: 08/17/24 Procedure(s): CT head/brain wo IV con Accession Number(s): [id number] cc: Natalie Martell; Name,Kiel BAILEY Report Number: [id number]: Total DLP = 756.00 mGy-cm EXAMINATION: CT [...] 08/17/24 1130 DD/ 1010 TD/TT: 08/17/24 1120 Assembly Riveter: Procedure Note Donotuseinterpreter, Image - 08/17/[address] [address] [address] Scan Report Signed Patient: Sarita Puga MMR#: [id number] 92 : 1965Acct:[id number] Age/Sex: 58 / FADM Date: 08/17/24 Loc: HO.ED Attending Dr: Ordering Physician: Natalie Martell Date of Service: 08/17/24 Procedure(s): CT head/brain wo IV con Accession Number(s): [id number] cc: Natalie Martell; Name,Kiel BAILEY Report Number: [id number]: Total DLP = 756.00 mGy-cm EXAMINATION: CT [...] 08/17/24 1130 DD/ 1010 TD/TT: 08/17/24 1120 Assembly Riveter: [facility] External Provider IMG CT PROCEDURES Final Result * XR Femur 2+ Views Right (08/17/2024 10:02 AM EDT) Anatomical Region Laterality Modality Lower Extremities, Femur Right Radiogr aphic Imaging 08/17/2024 10:0 2 AM EDT Narrative 08/17/2024 11:23 AM EDT [place] [address] XRay Report Signed Patient: Sarita Puga MR#: [id number] 92 : 1965 Acct:[id number] Age/Sex: 58 / F ADM Date: 08/17/24 Loc: HO.ED Attending Dr: Ordering Physician: Natalie Martell Date of Service: 08/17/24 Procedure(s): XR femur RT 2V Accession Number(s): [id number] cc: Natalie Martell; Name,Kiel BAILEY EXAMINATION: XR [...] 08/17/24 1120 DD/ 1002 TD/TT: 08/17/24 1113 Assembly Riveter: Procedure Note Donotuseinterpreter, Image - 08/17/[address] [address] XRay Report Signed Patient: Sarita Puga MMR#: [id number] 92 : 1965Acct:[id number] Age/Sex: 58 / FADM Date: 08/17/24 Loc: HO.ED Attending Dr: Ordering Physician: Natalie Martell Date of Service: 08/17/24 Procedure(s): XR femur RT 2V Accession Number(s): [id number] cc: Natalie Martell; Name,Kiel BAILEY EXAMINATION: XR [...] 08/17/24 1120 DD/ 1002 TD/TT: 08/17/24 1113 Assembly Riveter: us [facility] External Provider IMG XR PROCEDURES Final Result * XR Chest 2 Views (08/17/2024 9:56 AM EDT) Anatomical Region Laterality Modality Chest Radiographic Diana ging 08/17/2024 9:56 AM EDT Narrative 08/17/2024 11:20 AM EDT [address] [address] XRay Report Signed Patient: Sarita Puga MR#: [id number] 92 : 1965 Acct:[id number] Age/Sex: 58 / F ADM Date: 08/17/24 Loc: HO.ED Attending Dr: Ordering Physician: Natalie Martell Date of Service: 08/17/24 Procedure(s): XR chest 2V Accession Number(s): [id number] cc: Natalie Martell; Name,Kiel BAILEY EXAMINATION: XR [...] 08/17/24 1117 DD/ 0956 TD/TT: 08/17/24 1113 Assembly Riveter: Procedure Note Donotuseinterpreter, Image - 08/17/[address] [address] XRay Report Signed Patient: Sarita Puga MMR#: [id number] 92 : 1965Acct:[id number] Age/Sex: 58 / FADM Date: 08/17/24 Loc: .ED Attending Dr: Ordering Physician: Natalie Martell Date of Service: 08/17/24 Procedure(s): XR chest 2V Accession Number(s): [id number] cc: Natalie Martell; Kiel Shaffer MD EXAMINATION: [...] 08/17/24 1117 DD/ 0956 TD/TT: 08/17/24 1113 Assembly Riveter: [facility] External Provider IMG XR PROCEDURES Final Result * (ABNORMAL) Lipid Panel with Reflex to Direct LDL (06/18/2024 8:18 AM EDT) Triglycerides 156(H) <150 mg/dL [facility] Comment:Desirable Triglyceri de: less than 150 mg/dLBorderline High Triglyceride 150-199 mg/dLHigh Triglyceride: 200-499 mg/dLVery High Triglyceride: greater than or equal to 5OO mg/dL Cholesterol 185 <200 mg/dL [facility] Comment:Desirable Cholestero l: less than 200 mg/dLBorderline High Cholesterol: 200-239 mg/dLHigh Cholesterol: greater than 239 mg/dL LDL Cholesterol Calculated 109(H) <100 mg/dL [facility] Comment:Desirable LDL: less than 100 mg/dLNear Optimal/Above Optimal LDL: 110- 129 mg/dLBorderline High LDL: 130-159 mg/dLHigh LDL: 160-189 mg/dLVery High LDL: greater than or equal to 190 mg/dL HDL Cholesterol 45 >40 mg/dL [facility] Comment:Desirable HDL: great er than 40 mg/dL Note: This HDL assay may give artificially low results in patients with liver disease. 06/18/2024 8:18 AM EDT 06/18/2024 11:00 AM EDT Kiel Shaffer MD LAB BLOOD ORDERABLES Final Resul t [facility] [address] [place] [address] [phone] * BI Mammogram Screening Tomosynthesis Bilateral (06/03/2023 8:45 AM EDT) Anatomical Region Laterality Modality Breast Bilateral Mammography 06/03/2023 8:45 AM EDT Narrative 06/30/2023 10:24 PM EDT [facility] [address] [place] [address] Mammography Report Signed Patient: Sarita Puga MR#: [id number] 92 : 1965 Acct:[id number] Age/Sex: 57 / F ADM Date: 06/03/23 Loc: HO.MAMMO Attending Dr: Kiel Shaffer MD Ordering Physician: Kiel Shaffer MD Results: 1Negative Date of Service: 06/03/23 Follow Up: 1 Year From Orig inal Mammogram Procedure(s): MM tomosynthesis screening BI Accession Number(s): [id number] cc: Kiel Shaffer MD EXAMINATION: MM SCREENING [...] signed by Nancy Healy MD in OV> 05/09/24 2220 DD/ 0845 TD/TT: Assembly Riveter: Procedure Note Donotuseinterpreter, Image - 06/30/2023 [facility] [address] [place] [address] Mammography Report Signed Patient: Sarita Puga MMR#: [id number] 92 : 1965Acct:[id number] Age/Sex: 57 / FADM Date: 06/03/23 Loc: HO.MAMMO Attending Dr: Kiel Shaffer MD Ordering Physician: Kiel Shaffer MDResults: 1Negative Date of Service: 06/03/23Follow Up: 1 Year From Orig inal Mammogram Procedure(s): MM tomosynthesis screening BI Accession Number(s): [id number] cc: Kiel Shaffer MD EXAMINATION: MM SCREENING [...] MD in OV> 06/30/232219 DD/ 0845 TD/TT: Assembly Riveter: Kiel Shaffer MD IM BI PROCEDURES Edited Result - Final * Albumin, Random Urine W/Creatinine (05/26/2023 8:27 AM EDT) Creatinine, Urine 185.88 mg/dL [facility] Microalbumin Urine 23.0 mg/L [facility] Microalbum Creatinine Ratio Ur 12.3 <30 ug/mg cr [facility] Comment:Albumin/Creatinine R atio Reference Ranges: Normal: < 30 ug/mg creatinine Microalbuminuria: 30 - 300 ug/mg creatinineClinical Albuminuria: > 300 ug/mg creatinine Urine (Urine, Random) 05/26/2023 8:27 AM EDT 05/26/2023 11:19 AM EDT us Kiel Shaffer MD LAB URINE ORDERABLES Final Resul t [facility] [address] [place] [phone] * Colonoscopy (07/01/2022 4:37 PM EDT) Colonoscopy Normal Normal Narrative [place] Devine - 07/01/2022 4:37 PM EDT Recommended 5 year follow up ([facility]) [facility] Provider HEALTH MAINTENANCE Final Result * Diabetes Eye Exam (05/26/2022) Eye Exam Normal Normal us Kiel Shaffer MD HEALTH MAINTENANCE Final Result from Last 3 Months or Most Recently Relevant to Health Maintenance Insurance [facility] [address] [place] [address] [place] [address] [place], [place] [address]HEALTH C3 [employer] [place] [address] [place] [address] [address] [place] [address] [place], [place] Care Teams Digital Performance Analyst Relationship Specialty Start Date End Date Name, MD Kiel [address] [place] [address] PCP - General Family Medicine 07/15/15 Katlyn Rodriguez PharmD [address] [place], [place] Pharmacist Internal Medicine 10/08/22 Ania Spencer 08/20/24 Opal Leyva Registered Nurse 10/29/24 Marta Ovalle Estate AgentPower System Engineer 05/25/23
--- OUTSIDE RECORDS SUMMARY | 2024-11-07 14:51 | XMS_ITS | Encounter Summary ---
Author Organization [employer] Address [address] [place] [address] 7t [place] [address] Care Team Providers Care Winder Hand Name Role Phone Name, Kiel BAILEY Primary Care Provider [phone] Katlyn Rodriguez PharmD Unavailable [phone] Nehal Ann RN Unavailable [phone] Ania Spencer Unavailable Opal Leyva Unavailable [phone] Reason for Visit * Reason Onset Date Comments Medication Problem 08/30/2023 Encounter Details Date Type Department Care Team (Late st Contact Info) Description 08/30/2023 Telephone [facility] [address] [place], [place] [phone] Name, MD Kiel [address] [place], [place] [phone] Medication Problem Social History Tobacco Use Types [...] the past 12 months, has t he [email or web address], gas, oil or water company threatened to [...] EDT Clinical Support [facility] [address] [place] [address] Opal Steiner RN 11/27/2024 10:30 AM EDT Medication Management [facility] [address] [place] [address] Puia, Katlyn, PharmD [address] [place] [address] documented as of this encounter Goals Goal [...] documented as of this encounter Care Teams Winder Hand Relationship Specialty Start Date End Date Name, MD Kiel [address] [place] [address] PCP - General Family Medicine 07/15/15 Katlyn Rodriguez, PharmD [address] [place] [address] Pharmacist Internal Medicine 10/08/22 Nehal Ann RN [address] [place] [address] Registered Nurse Family Medicine 08/20/24 10/29/24 Ania Spencer 08/20/24 Opal Leyva Registered Nurse 10/29/24 Marta Ovalle Powertrain Calibration EngineerOccupational Physician 05/25/23 documented as of this encounter
--- OUTSIDE RECORDS SUMMARY | 2024-11-07 14:51 | XMS_ITS | Encounter Summary ---
Author Organization [employer] Address [address] [facility] 7t [place] [address] Care Team Providers Care Precision Farming Specialist Name Role Phone Name, Kiel BAILEY Primary Care Provider Katlyn Rodriguez PharmD Unavailable [phone] Nehal Ann RN Unavailable [phone] Ania Spencer Unavailable Opal Leyva Unavailable [phone] Reason for Visit * Reason Comments Med Refill Encounter Details Date Type Department Care Team (Late st Contact Info) Description 09/07/2023 Refill [facility] [address] [place], [place] [phone] Name, MD Kiel [address] [place] [address] Type 2 diabetes mellitus with other specified [...] the past 12 months, has t he [employer], gas, oil or water company threatened to [...] Description 11/15/2024 11:30 AM EDT Clinical Support [facility] [address] [place] [address] Opal Steiner RN 11/27/2024 10:30 AM EDT Medication Management [facility] [address] [place] [address] PuiaReidKatlyn, PharmD [address] [place] [address] documented as of this encounter Goals Goal [...] documented as of this encounter Care Teams Precision Farming Specialist Relationship Specialty Start Date End Date Name, MD Kiel [address] [place] [address] PCP - General Family Medicine 07/15/15 Katlyn Rodriguez PharmD [address] [place] [address] Pharmacist Internal Medicine 10/08/22 Nehal Ann RN [address] [place] [address] Registered Nurse Family Medicine 08/20/24 10/29/24 Ania Spencer 08/20/24 Opal Leyva Registered Nurse 10/29/24 Marta Ovalle Suction Plate Roller HandPersonal Care Attendant 05/25/23 documented as of this encounter
--- OUTSIDE RECORDS SUMMARY | 2024-11-07 14:51 | XMS_ITS | Encounter Summary ---
Author Organization [employer] Address [address] [place] [address] 7t [place] [address] Care Team Providers Care Business Development Intern Name Role Phone Name, Kiel BAILEY Primary Care Provider [phone] Katlyn Rodriguez PharmD Unavailable [phone] Nehal Ann RN Unavailable [phone] Ania Spencer Unavailable Opal Leyva Unavailable [phone] Reason for Visit * Reason Onset Date Comments Nurse Triage 07/04/2024 Encounter Details Date Type Department Care Team (Late st Contact Info) Description 07/04/2024 Telephone [facility] [address] [place], [place] [phone] Name, MD Kiel [address] [place], [place] [phone] Nurse Triage Social History Tobacco Use Types [...] 07/04/2024 11:25 AM EDT Triage call with [facility] Net Developer With Wcf ID [id number]. Pt reports headache over the entire head. No involvement with eye area. BP is 104/60. Pt has been seen by neurologist at [facility] and is being tested for possible tumor. Pt was prescribed dexamethasone byneurologist. Pt pain is moderate . Pt has been prescribed roxicodone 10mg starting 06/28/24 but, reports pharmacy wouldn't fill prescription last time contacted. Pt daughter is speaking for Pt at this time. Daughter is advised to call [facility] for prescription of roxicodone which should [...] caller accepted this outcome. Contact pt at [phone] (saudi arabian) documented in this encounter Plan of Treatment Upcoming Encounters Date Type Department Care Team ([facility] st Contact Info) Description 11/15/2024 11:30 AM EDT Clinical Support [address] [address] Opal Steiner RN 11/27/2024 10:30 AM EDT Medication Management [address] [address] Puia, Katlyn, PharmD [address] [place] [address] documented as of this encounter Goals Goal Patient Goal Type Associated Problems Recent Progress Patient-Stated? Author Record your blood pressure once per day Blood Pressure No Puia, Katlyn, PharmD Blood Pressure < 140/90 Blood Pressure 144/83(2024 5:13 PM EDT) No Puia, Aktlyn, PharmD Hemoglobin A1c < 7 Result Component 7.5( 11:12 AM EDT) No Puia, Katlyn, PharmD Record your blood sugar as directed Result Component No Puia, Katlyn, PharmD documented as of this encounter Visit Diagnoses Not on filedocumented in this encounter Additional Health Concerns Assessment Noted Time PHQ-9 Depression Total Score: 4 09/02/19 24 10:30 AM EDT documented as of this encounter Care Teams Business Development Intern Relationship Specialty Start Date End Date Name, MD Kiel [address] [place] [address] PCP - General Family Medicine 07/15/15 Katlyn Rodriguez PharmD [address] [place] [address] Pharmacist Internal Medicine 10/08/22 Nehal Ann RN [address] [place] [address] Registered Nurse Family Medicine 08/20/24 10/29/24 Ania Spencer 08/20/24 Opal Leyva Registered Nurse 10/29/24 Marta Ovalle Client Support AdministratorL Tacker 05/25/23 documented as of this encounter
--- OUTSIDE RECORDS SUMMARY | 2024-11-07 14:51 | XMS_ITS | Encounter Summary ---
Author Organization [employer] Address [address] [place] [address] 7t [place] [address] Care Team Providers Care Tile Molder Hand Name Role Phone Name, Kiel BAILEY Primary Care Provider Katlyn Rodriguez PharmD Unavailable Nehal Ann RN Unavailable [phone] Ania Spencer Unavailable Opal Leyva Unavailable Encounter Details Date Type Department Care Team (Late Contact Info) Description 10/29/2022 Abstract [facility] [address] [place], [place] [phone] Name, MD Kiel [address] [place], [place] [phone] Social History Tobacco Use Types Packs/Day Years [...] Description 11/15/2024 11:30 AM EDT Clinical Support [address] [address] Opal Steiner, MARINA 11/27/2024 10:30 AM EDT Medication Management [address] [address] PuKatlyn albert, PharmD [address] [place], [place] documented as of this encounter Goals [...] encounter Results * Diabetes Eye Exam (05/26/2022) [facility] Signature Eye Exam Normal Normal Kiel Shaffer MD HEALTH MAINTENANCE Final Result documented in this encounter Visit Diagnoses Not on filedocumented in this encounter Additional Health Concerns Assessment Noted Time PHQ-9 Depression Total Score: 7 07/15/19 23 2:39 PM EDT documented as of this encounter Care Teams Tile Molder Hand Relationship Specialty Start Date End Date Name, MD Kiel [address] [place] [address] PCP - General Family Medicine 07/15/15 Puia, Katlyn, PharmD [address] [place] [address] Pharmacist Internal Medicine 10/08/22 Nehal Ann, MARINA [address] [place] [address] Registered Nurse Family Medicine 08/20/24 10/29/24 Ania Spencer 08/20/24 Opal Leyva Registered Nurse 10/29/24 Marta Ovalle Digitizer OperatorBraid Cutter 05/25/23 documented as of this encounter
--- OUTSIDE RECORDS SUMMARY | 2024-11-07 14:51 | XMS_ITS | Encounter Summary ---
Author Organization [employer] Address [address] [facility] 7t [place] [address] Care Team Providers Care Human Resources Executive Assistant Name Role Phone Name, Kiel BAILEY Primary Care Provider Katlyn Rodriguez PharmD Unavailable [phone] Nehal Ann RN Unavailable [phone] Ania Spencer Unavailable Opal Leyva Unavailable [phone] Encounter Details Date Type Department Care Team (Late st Contact Info) Description 05/01/2024 Telephone [facility] [address] [place], [place] [phone] Name, MD Kiel [address] [place], [place] [phone] Social History Tobacco Use Types Packs/Day Years [...] Clinical Support [facility] [address] [place] [address] Opal Steiner RN 11/27/2024 10:30 AM EDT Medication Management [facility] [address] [place] [address] Katlyn Rodriguez PharmD [address] [place] [address] documented as of this encounter Goals Goal [...] as of this encounter Care Teams Human Resources Executive Assistant Relationship Specialty Start Date End Date Name, MD Kiel [address] [place] [address] PCP - General Family Medicine 07/15/15 Puia, Katlyn, PharmD [address] [place] [address] Pharmacist Internal Medicine 10/08/22 Nehal Ann RN [address] [place] [address] Registered Nurse Family Medicine 08/20/24 10/29/24 Ania Spencer 08/20/24 Opal Leyva Registered Nurse 10/29/24 Marta Ovalle [employer] TutorSenior Project Coordinator 05/25/23 documented as of this encounter
--- OUTSIDE RECORDS SUMMARY | 2024-11-07 14:51 | XMS_ITS | Encounter Summary ---
Author Organization [employer] Address [address] [facility] 7t [place] [address] Care Team Providers Care Diesel Retrofit Designer Name Role Phone Name, Kiel BAILEY Primary Care Provider Katlyn Rodriguez PharmD Unavailable [phone] Nehal Ann RN Unavailable [phone] Ania Spencer Unavailable Opal Leyva Unavailable [phone] Reason for Visit * Reason Comments Med Refill Encounter Details Date Type Department Care Team (Late st Contact Info) Description 06/27/2023 Refill [facility] [address] [place], [place] [phone] Katlyn Rodriguez, PharmD [address] [place] [address] Tobacco use disorder Social History Tobacco Use [...] Description 11/15/2024 11:30 AM EDT Clinical Support [facility] [address] [place] [address] Opal Steiner RN 11/27/2024 10:30 AM EDT Medication Management [facility] [address] [place] [address] Puia, Katlyn, PharmD [address] [place] [address] documented as of this encounter Goals Goal [...] as of this encounter Care Teams Diesel Retrofit Designer Relationship Specialty Start Date End Date Name, MD Kiel [address] [place] [address] PCP - General Family Medicine 07/15/15 Katlyn Rodriguez PharmD [address] [place], [place] [phone] Pharmacist Internal Medicine 10/08/22 Nehal Ann RN [address] [place] [address] Registered Nurse Family Medicine 08/20/24 10/29/24 Ania Spencer 08/20/24 Opal Leyva Registered Nurse 10/29/24 Marta Ovalle Shipping And Receiving Material HandlerWasher Assembler 05/25/23 documented as of this encounter
--- OUTSIDE RECORDS SUMMARY | 2024-11-07 14:51 | XMS_ITS | Clinical Summary ---
Author Organization 175 [facility] Address [address] [place] [address] Phone Care Team Providers Care Med Care Manager Name Role Phone Name, Kiel BAILEY Primary Care Provider [phone] Allergies Active Allergy Reactions Criticality Noted Date [...] Date Diagnosed Date COPD exacerbation ([facility] V24, [facility] V28) Abnormal nuclear stress test 11/06/2014 Rib fracture 12/24/2013 Overview (12/12/2023): Non displaced, probable froacture on the right ninth and tenth Abdominal pain 08/15/2013 Lipoma of abdominal wall 11/02/2011 Visual field defect 03/29/2011 Cocaine abuse, episodic use ([facility] V24, [facility] V28) 06/17/2010 Low back pain radiating to left leg 10/08/2009 Overview (12/12/2023): The patient follows with [facility] and is treated with injections to the LS. Asthmatic bronchitis , chronic ([facility] V24, [facility] V28) 07/07/2009 Overview (12/12/2023): Severe and worse in the spring. Last hospitalazion in May and 3 ER visits Hospital 08/02 Known medical problems 06/05/2009 Tobacco use disorder 06/05/2009 Hypertriglyceridemia 06/05/2009 Morbid obesity ([facility] V24, [facility] V28) 2009 Overview (12/12/2023): BMI 48.37 on 11/15/13 Depression 06/05/2009 Encounters Date Type Department Care Team Description 08/27/2024 9:45 AM EDT Office Visit Orthopedic Surgery - [place] [address] [place] [phone] Wesley Garcia, DPM Dermatophytosis of nail (Primary Dx); Pain in toe of right foot; Pain in toe of left foot; Diabetic mononeuropathy simplex ([facility] V24, [facility] V28); Tinea pedis of both feet [...] TOTAL HYSTERECTOMY WITH BSO; COMMENT: for bleeding, [facility] Medical History Medical History Date Comments Type II or unspecified type diabetes mellitus with unspecified complication, not stated as uncontrolled DX:Type II or unspecified t ype diabetes mellitus with unspecified complication, not stated as uncontrolled Unspecified essential hypertension DX:Unspecified essential hypertension Tobacco abuse DX:Tobacco abuse RAD (reactive airway disease) DX :RAD (reactive airway disease) Morbid obesity ([facility] V24, [facility] V28) DX:Morbid obesity ([facility]) Asthmatic bronchitis , chron ic ([facility] V24, [facility] V28) 07/07/2009 DX:Asthmatic bronchitis , ch ronic ([facility]) Hypertriglyceridemia 06/05/2009 DX:Hypertri glyceridemia Rib fracture 12/24/2013 DX:Rib fracture Family History Medical History Relation Name Comments Blindness Brother 1 Breast cancer Maternal Grandmother Cataracts Maternal Grandmother Blindness Mother Glaucoma Neg Hx Macular degeneration Neg Hx Strabismus Neg Hx Relation Name Status Comments Brother 1 Brother 2 CA Brother 3 Alive 6 brothers are diabetic [...] AM EDT Office Visit Orthopedic Surgery - [place] [facility] 250 [place] [address] Wesley Garcia, DPM [address] [address] Health Maintenance Due Date Last [...] LAB CHEMISTRY METHOD 02/06/2024 3:36 AM EST [facility] Potassium 4.1 3.5 - 5.5 mmol/L LAB CHEMISTRY METHOD 02/06/2024 3:36 AM EST [facility] Chloride 104 96 - 110 mmol/L LAB CHEMISTRY METHOD 02/06/2024 3:36 AM EST [facility] CO2 23 21 [...] [facility] Comment:Calculation based on the Chronic Kidney [...] R esult [facility] [address] [place] [address], * (ABNORMAL) Hemoglobin A1c (11/20/2014) Hemoglobin A1C 7.5(A) 4.0 - 6.0 % Blood Venous blood specimen / Unknown Historical Provider LAB BLOOD ORDERABLES Alis l Result * HM Urine Albumin Creatinine Ratio (05/10/2014) Pathologist [facility] Urine Albumin Creatinine Ratio abstracted Historical Provider HEALTH MAINTENANCE Final Result * (ABNORMAL) Lipid panel (05/10/2014) [facility] LDL/HDL Ratio 4 0 - 4 Triglycerides 360(A) 0 - 150 mg/dL Cholesterol 179 0 - 200 mg/dL HDL 42 >=40 mg/dL LDL Cholesterol 65 0 - 100 mg/dL Blood Venous blood specimen / Unknown [facility] Provider LAB BLOOD ORDERABLES Alis l Result * Hepatitis C Screening (10/10/2013) [facility] Hepatitis C Screening abstracted [facility] Provider HEALTH MAINTENANCE Final Result from Last [...] currently active code status orders. Care Teams Med Care Manager Relationship Specialty Start Date End Date Name, MD Kiel [address] [place], [place] PCP - General Internal Medicine 08/28/15
--- OUTSIDE RECORDS SUMMARY | 2024-11-07 14:51 | XMS_ITS | Encounter Summary ---
Author Organization [employer] Address [address] [facility] 7t [place] [address] Care Team Providers Care Small Parts Assembler Name Role Phone Name, Kiel BAILEY Primary Care Provider [phone] Katlyn Rodriguez PharmD Unavailable [phone] Nehal Ann RN Unavailable [phone] Ania Spencer Unavailable Opal Leyva Unavailable [phone] Reason for Visit * Reason Comments Med Refill Encounter Details Date Type Department Care Team (Late st Contact Info) Description 04/15/2023 Refill [facility] MEDICINE [address] [place], [place] [phone] Yaneth Restrepo FNP [address] [place] [address] Diabetes mellitus type 2 in obese (CMS/HCC) [...] Description 11/15/2024 11:30 AM EDT Clinical Support [facility] [address] [place] [address] Opal Steiner RN 11/27/2024 10:30 AM EDT Medication Management [facility] [address] [place] [address] PuiaKatlyn, PharmD [address] [place] [address] documented as of this encounter Goals Goal [...] documented as of this encounter Care Teams Small Parts Assembler Relationship Specialty Start Date End Date Name, MD Kiel [address] [place] [address] PCP - General Family Medicine 07/15/15 Katlyn Rodriguez, Bin [address] [place] [address] Pharmacist Internal Medicine 10/08/22 Nehal Ann RN [address] [place] [address] Registered Nurse Family Medicine 08/20/24 10/29/24 Ania Spencer 08/20/24 Opal Leyva Registered Nurse 10/29/24 Marta Ovalle Infertility NurseLinux Unix System Administrator 05/25/23 documented as of this encounter
--- OUTSIDE RECORDS SUMMARY | 2024-11-07 14:51 | XMS_ITS | Encounter Summary ---
Author Organization [employer] Address [address] [facility] 7t [place] [address] Care Team Providers Care Rn Hospital Name Role Phone Name, Kiel BAILEY Primary Care Provider Katlyn Rodriguez PharmD Unavailable [phone] Nehal Ann RN Unavailable [phone] Ania Spencer Unavailable Opal Leyva Unavailable [phone] Encounter Details Date Type Department Care Team (Late st Contact Info) Description 02/20/2024 Telephone [facility] [address] [place] [address] Name, MD Kiel [address] [place] [address] Social History Tobacco Use Types Packs/Day Years [...] Description 11/15/2024 11:30 AM EDT Clinical Support [facility] MEDICINE [address] [place] [address] Opal Steiner RN 11/27/2024 10:30 AM EDT Medication Management [facility] MED[facility]INE [address] [place] [address] Puia, Katlyn, PharmD [address] [place] [address] documented as of this encounter Goals Goal [...] as of this encounter Care Teams Rn Hospital Relationship Specialty Start Date End Date Name, MD Kiel [address] [place] [address] PCP - General Family Medicine 07/15/15 Katlyn Rodriguez PharmD [address] [place] [address] Pharmacist Internal Medicine 10/08/22 Nehal Ann RN [address] [place] [address] Registered Nurse Family Medicine 08/20/24 10/29/24 Ania Spencer 08/20/24 Opal Leyva Registered Nurse 10/29/24 Marta Ovalle Remnant SorterStapler Hand 05/25/23 documented as of this encounter
--- OUTSIDE RECORDS SUMMARY | 2024-11-07 14:51 | XMS_ITS | Encounter Summary ---
Author Organization [employer] Address [address] [place] [address] 7t [place] [address] Care Team Providers Care Brim Flexer Name Role Phone Name, Kiel BAILEY Primary Care Provider [phone] Katlyn Rodriguez PharmD Unavailable Nehal Ann RN Unavailable [phone] Ania Spencer Unavailable Opal Leyva Unavailable [phone] Reason for Referral * Consultation (Routine) - Closed Specialty Diagnoses / Procedures Referred By Contac t Referred To Contact Physical Therapy Diagnoses Hemiparesis of left dominant side as late effect of cerebral infarction ([facility]/HCC) Kiel Shaffer MD [address] [place] [address] Phone: tel: fax: [facility] Physical Therapy [address] [place] [address] Phone: tel: fax: Referral ID Status Reason Start Date Expiration Date V isits Requested Visits Authorized [id number] Closed Specialty Services Required 10/06/2024 10/06/2025 20 20 Reason for Visit * Reason Onset Date Comments Referral 10/05/2024 Encounter Details Date Type Department Care Team (Late st Contact Info) Description 10/05/2024 Telephone [facility] MEDICINE [address] [place] [address] Kiel Shaffer MD [address] [place], [place] [phone] Referral Social History Tobacco Use Types Packs/Day [...] 10/05/2024 1:40 PM EDT TC placed to [facility] with [facility] physical therapy regarding referral request. [facility] states they havean order for physical therapy for weakness of both lower extremities. [facility] is requesting the referral be sent to them with MD signature. [facility] states when requesting additional visits through [facility], they are very particular and request MD signature. [facility] provided fax number [phone]. TC placed to [facility] Blue Team sales account specialist [place] for clarification on what is to be done. [facility] states they have not heard of this. [facility] states pt may need new referral as they after 30 days. TC placed to [facility] with [facility] physical therapy for clarification on request. [facility] states they require the referral to be electronically signed or physically signed by an MD. Message forwarded to PCP to review and advise. * Telephone Encounter - Rosario Phillips - 10/05/2024 11:04 AM EDT TC from [facility] with [facility] requesting a new referral for physical therapy with an MD sing Contact pt at [phone] documented in this encounter Plan of Treatment Upcoming Encounters Date Type Department Care Team (Late st Contact Info) Description 11/15/2024 11:30 AM EDT Clinical Support [facility] MEDICINE [address] [place] [address] Opal Steiner RN 11/27/2024 10:30 AM EDT Medication Management [facility] [address] [place] [address] Katlyn Rodriguez, AngieD [address] [place] [address] Scheduled Referrals Name Type Priority Associated Diagnoses [...] documented as of this encounter Care Teams Brim Flexer Relationship Specialty Start Date End Date Name, MD Kiel [address] [place] [address] PCP - General Family Medicine 07/15/15 Puia, Katlyn, PharmD [address] [place] [address] Pharmacist Internal Medicine 10/08/22 Nehal Ann RN [address] [place] [address] Registered Nurse Family Medicine 08/20/24 10/29/24 Ania Spencer 08/20/24 Opal Leyva Registered Nurse 10/29/24 Marta Ovalle Washhouse WorkerWater Softener Servicer And Installer 05/25/23 documented as of this encounter
--- OUTSIDE RECORDS SUMMARY | 2024-11-07 14:52 | XMS_ITS | Encounter Summary ---
Author Organization [employer] Address [address] [place] [address] 7t [place] [address] Care Team Providers Care Woodworking Shop Laborer Name Role Phone Name, Kiel BAILEY Primary Care Provider Katlyn Rodriguez PharmD Unavailable [phone] Nehal Ann RN Unavailable [phone] Ania Spencer Unavailable Opal Leyva Unavailable [phone] Encounter Details Date Type Department Care Team (Late st Contact Info) Description 07/01/2022 Abstract [facility] MEDICINE [address] [place], [place] [phone] Name, MD Kiel 230 [place], [place] [phone] Social History Tobacco Use Types Packs/Day Years [...] Description 11/15/2024 11:30 AM EDT Clinical Support [address] [address] Opal Steiner, RN 11/27/2024 10:30 AM EDT Medication Management [address] [address] Katlyn Rodriguez PharmD [address] [place] [address] documented as of this encounter Visit Diagnoses Not on filedocumented in this encounter Care Teams Woodworking Shop Laborer Relationship Specialty Start Date End Date Name, MD Kiel [address] [place] [address] PCP - General Family Medicine 07/15/15 Katlyn Rodriguez, PharmD [address] [place] [address] Pharmacist Internal Medicine 10/08/22 Nehal Ann RN [address] [place] [address] Registered Nurse Family Medicine 08/20/24 10/29/24 Ania Spencer 08/20/24 Opal Leyva Registered Nurse 10/29/24 Marta vOalle Meat Cutter ApprenticeCatering Cook 05/25/23 documented as of this encounter
--- OUTSIDE RECORDS SUMMARY | 2024-11-07 14:52 | XMS_ITS | Encounter Summary ---
Author Organization [employer] Address [address] [place] [address] 7t [place] [address] Care Team Providers Care Beef Specialist Name Role Phone Name, Kiel BAILEY Primary Care Provider Katlyn Rodriguez PharmD Unavailable [phone] Nehal Ann RN Unavailable [phone] Ania Spencer Unavailable Opal Leyva Unavailable [phone] Encounter Details Date Type Department Care Team (Late st Contact Info) Description 07/01/2022 Abstract [facility] MEDICINE 230 [place], [place] [phone] Name, MD Kiel [address] [place], [place] [phone] Social History Tobacco Use Types Packs/Day Years [...] 11/15/2024 11:30 AM EDT Clinical Support [address] [place] [address] [address] Opal Steiner RN 11/27/2024 10:30 AM EDT Medication Management [address] [place] [address] [address] Katlyn Rodriguez PharmD [address] [place] [address] documented as of this encounter Procedures Procedure Name Priority Date/Time Associated Diagnosis Comments COLONOSCOPY Routine 07/01/2022 4:37 PM EDT documented in this encounter Results * Colonoscopy (07/01/2022 4:37 PM EDT) Colonoscopy Normal Normal Narrative mEely Devine - 07/01/2022 4:37 PM EDT Recommended 5 year follow up [place] Historical Provider HEALTH MAINTENANCE Final Result documented in this encounter Visit Diagnoses Not on filedocumented in this encounter Care Teams Beef Specialist Relationship Specialty Start Date End Date Name, MD Kiel [address] [place] [address] PCP - General Family Medicine 07/15/15 Katlyn Rodriguez, PharmD [address] [place] [address] Pharmacist Internal Medicine 10/08/22 Nehal Ann, MARINA [address] [place] [address] Registered Nurse Family Medicine 08/20/24 10/29/24 Ania Spencer 08/20/24 Opal Leyva Registered Nurse 10/29/24 Marta Ovalle Data Virtualization ConsultantFelt Cutting Machine Operator 05/25/23 documented as of this encounter
--- OUTSIDE RECORDS SUMMARY | 2024-11-07 14:52 | XMS_ITS | Encounter Summary ---
Author Organization [facility] Address [address] [facility] [address] [place] [address] Phone Care Team Providers Care As400 Programmer Analyst Name Role Phone Unavailable Primary Care Provider Unavailabl e Encounter Details Date Type Department Care Team (Late st Contact Info) Description 01/04/2020 Procedure Pass [facility] [address] [place] [address] [place], [place] [phone] Social History Tobacco Use Types Packs/Day Years [...] It is not the complete legal health record.[facility]
--- OUTSIDE RECORDS SUMMARY | 2024-11-07 14:52 | XMS_ITS | Encounter Summary ---
Author Organization [facility] Address [address] [place] [address] Care Team Providers Care Attending Radiologist Name Role Phone Name, Kiel BAILEY Primary Care Provider [phone] Encounter Details Date Type Department Care Team Description 09/10/2022 Social Work [facility] [address] [place] [address] Adina Archer, [facility] Social History Tobacco Use Types Packs/Day Years [...] on filedocumented in this encounter Care Teams Attending Radiologist Relationship Specialty Start Date End Date Name, MD Kiel [address] [place] [address] [address] [place] [address] PCP - General Internal Medicine 04/17/18 documented as of this encounter
--- OUTSIDE RECORDS SUMMARY | 2024-11-07 14:52 | XMS_ITS | Encounter Summary ---
Author Organization [employer] Address [address] [place] [address] 7t [place] [address] Care Team Providers Care Chairman Ceo Name Role Phone Name, Kiel BAILEY Primary Care Provider Katlyn Rodriguez PharmD Unavailable Nehal Ann RN Unavailable [phone] Ania Spencer Unavailable Opal Leyva Unavailable [phone] Reason for Visit * Reason Comments Med Refill Encounter Details Date Type Department Care Team (Late st Contact Info) Description 04/25/2022 Refill [facility] MEDICINE [address] [place], [place] [phone] Name, MD Kiel 230 [place], [place] [phone] Diabetes mellitus type 2 in obese (CMS/HCC) [...] Description 11/15/2024 11:30 AM EDT Clinical Support [address] [address] Opal Steiner, MARINA 11/27/2024 10:30 AM EDT Medication Management [address] [address] Katlyn Rodriguez PharmD [address] [place] [address] documented as of this encounter Visit Diagnoses Diagnosis Diabetes mellitus type 2 in obese- Primary Type II or unspecified type diabetes mellitus without mention of complication, not stated as uncontrolled documented in this encounter Care Teams Chairman Ceo Relationship Specialty Start Date End Date Name, MD Kiel [address] [place] [address] PCP - General Family Medicine 07/15/15 Katlyn Rodriguez, PharmD [address] [place] [address] Pharmacist Internal Medicine 10/08/22 Nehal Ann, MARINA [address] [place] [address] Registered Nurse Family Medicine 08/20/24 10/29/24 Ania Spencer 08/20/24 Opal Leyva Registered Nurse 10/29/24 Marta Ovalle Maxillofacial PathologyCustodial Foreman 05/25/23 documented as of this encounter
--- OUTSIDE RECORDS SUMMARY | 2024-11-07 14:52 | XMS_ITS | Encounter Summary ---
Author Organization [employer] Address [address] [place] [address] 7t [place] [address] Care Team Providers Care Gis Application Developer Name Role Phone Name, Kiel BAILEY Primary Care Provider [phone] Katlyn Rodriguez PharmD Unavailable Nehal Ann RN Unavailable [phone] Ania Spencer Unavailable Opal Leyva Unavailable [phone] Reason for Visit * Reason Comments Med Refill Encounter Details Date Type Department Care Team (Late st Contact Info) Description 07/16/2022 Refill [facility] MEDICINE [address] [place], [place] [phone] Name, MD Kiel [address] [place], [place] [phone] Chronic pain syndrome Social History Tobacco Use [...] Description 11/15/2024 11:30 AM EDT Clinical Support [address] [address] Opal Steiner, RN 11/27/2024 10:30 AM EDT Medication Management [address] [address] Katlyn Rodriguez PharmD [address] [place] [address] documented as of this encounter Visit Diagnoses Diagnosis Chronic pain syndrome documented in this encounter Additional Health Concerns Assessment Noted Time PHQ-9 Depression Total Score: 7 07/15/19 23 2:39 PM EDT documented as of this encounter Care Teams Gis Application Developer Relationship Specialty Start Date End Date Name, MD Kiel [address] [place] [address] PCP - General Family Medicine 07/15/15 Katlyn Rodriguez PharmD [address] [place] [address] Pharmacist Internal Medicine 10/08/22 Nehal Ann RN [address] [place] [address] Registered Nurse Family Medicine 08/20/24 10/29/24 Ania Spencer 08/20/24 Opal Leyva Registered Nurse 10/29/24 Marta Ovalle Medical Staff Services CoordinatorField Crop I Farmworker 05/25/23 documented as of this encounter
--- OUTSIDE RECORDS SUMMARY | 2024-11-07 14:52 | XMS_ITS | Encounter Summary ---
Author Organization [employer] Address [address] [place] [address] 7[place] [address] Care Team Providers Care Rn Registry Name Role Phone Name, Kiel BAILEY Primary Care Provider [phone] Katlyn Rodriguez PharmD Unavailable [phone] Nehal Ann RN Unavailable [phone] Ania Spencer Unavailable Opal Leyva Unavailable [phone] Reason for Referral * Consultation (Routine) - Closed Specialty Diagnoses / Procedures Referred By Contac t Referred To Contact Occupational Therapy Diagnoses Left arm weakness Lizzie Alfaro NP [address] [place] [address] Phone: tel: fax: [facility] [address] [place] [address] Phone: tel: fax: Referral ID Status Reason Start Date Expiration Date V isits Requested Visits Authorized [id number] Closed Specialty Services Required 09/06/2024 09/06/2025 20 20 Encounter Details Date Type Department Care Team (Late st Contact Info) Description 09/06/2024 Orders Only [facility] MEDICINE [address] [place] [address] Lizzie Alfaro NP [address] [place] [address] Left arm weakness (Primary Dx) Social History [...] Description 11/15/2024 11:30 AM EDT Clinical Support [address] [address] Opal Steiner RN 11/27/2024 10:30 AM EDT Medication Management [address] [address] Puia, Katlyn, PharmD [address] [place] [address] Scheduled Referrals Name Type Priority Associated Diagnoses [...] as of this encounter Care Teams Rn Registry Relationship Specialty Start Date End Date Name, MD Kiel [address] [place] [address] PCP - General Family Medicine 07/15/15 Puia, Katlyn, PharmD [address] [place] [address] Pharmacist Internal Medicine 10/08/22 Nehal Ann RN [address] [place] [address] Registered Nurse Family Medicine 08/20/24 10/29/24 Ania Spencer 08/20/24 Opal Leyva Registered Nurse 10/29/24 Marta Ovalle Data ConsultantContent Producer 05/25/23 documented as of this encounter
--- OUTSIDE RECORDS SUMMARY | 2024-11-07 14:52 | XMS_ITS | Encounter Summary ---
Author Organization [employer] Address [address] [place] [address] 7t [place] [address] Care Team Providers Care Leak Patcher Name Role Phone Name, Kiel BAILEY Primary Care Provider [phone] Katlyn Rodriguez PharmD Unavailable [phone] Nehal Ann RN Unavailable [phone] Ania Spencer Unavailable Opal Leyva Unavailable [phone] Reason for Visit * Reason Onset Date Comments FYI 08/03/2024 Encounter Details Date Type Department Care Team (Late st Contact Info) Description 08/03/2024 Telephone [facility] MEDICINE [address] [place], [place] [phone] Name, MD Kiel [address] [place], [place] [phone] FYI Social History Tobacco Use Types Packs/Day [...] - 08/03/2024 2:00 PM EDT Tc from [facility] with N stating pt has an upcoming appointment with pcp and would like to report: 1) Pt was discharged yesterday 08/02. Reason: COPD. 2) F/u Left ear symptoms. Pt unable to hear. 3) F/u pull up prescription. Any questions contact [facility] [phone] documented in this encounter Plan of Treatment Upcoming Encounters Date Type Department Care Team (Late st Contact Info) Description 11/15/2024 11:30 AM EDT Clinical Support [address] [phone] Opal Steiner RN 11/27/2024 10:30 AM EDT Medication Management [address] [phone] Puia, Katlyn, PharmD [address] [place] [address] documented as of this encounter Goals Goal [...] documented as of this encounter Care Teams Leak Patcher Relationship Specialty Start Date End Date Name, MD Kiel [address] [place] [address] PCP - General Family Medicine 07/15/15 Puia, Katlyn, PharmD [address] [place] [address] Pharmacist Internal Medicine 10/08/22 Nehal Ann, MARINA [address] [place] [address] Registered Nurse Family Medicine 08/20/24 10/29/24 Ania Spencer 08/20/24 Opal Leyva Registered Nurse 10/29/24 Marta Ovalle School CommissionerTreater 05/25/23 documented as of this encounter
--- OUTSIDE RECORDS SUMMARY | 2024-11-07 14:52 | XMS_ITS | Encounter Summary ---
Author Organization [facility] [employer] Address [address] [facility] 7t [place] [address] Care Team Providers Care Building Drafting Officer Name Role Phone Name, Kiel BAILEY Primary Care Provider [phone] Katlyn Rodriguez PharmD Unavailable Nehal Ann RN Unavailable [phone] Ania Spencer Unavailable Opal Leyva Unavailable [phone] Reason for Visit * Reason Comments Med Refill Encounter Details Date Type Department Care Team (Late st Contact Info) Description 06/08/2024 Refill [facility]S [address] [place], [place] [phone] Name, MD Kiel 230 [place] [address] Chronic pain syndrome Social History Tobacco Use [...] the past 12 months, has t he [employer], gas, oil or water [employer] threatened to shut off services in your [...] Description 11/15/2024 11:30 AM EDT Clinical Support [facility] MEDICINE [address] [place] [address] Opal Steiner RN 11/27/2024 10:30 AM EDT Medication Management [facility] MEDICINE [address] [place] [address] PuiaReidKatlyn, PharmD [address] [place] [address] documented as of this encounter Goals Goal [...] as of this encounter Care Teams Building Drafting Officer Relationship Specialty Start Date End Date Name, MD Kiel 230 [place], [place] [phone] PCP - General Family Medicine 07/15/15 Katlyn Rodriguez, PharmD 230 [place] [address] Pharmacist Internal Medicine 10/08/22 Nehal Ann RN 505 [place] [address] Registered Nurse Family Medicine 08/20/24 10/29/24 Ania Spencer 08/20/24 Opal Leyva Registered Nurse 10/29/24 Marta Ovalle [employer] PrincipalIngot Buggy Operator 05/25/23 documented as of this encounter
--- OUTSIDE RECORDS SUMMARY | 2024-11-07 14:52 | XMS_ITS | Encounter Summary ---
Author Organization [employer] Address [address] [facility] 7t [place] [address] Care Team Providers Care Kitchen And Bath Designer Name Role Phone Name, Kiel BAILEY Primary Care Provider Katlyn Rodriguez PharmD Unavailable [phone] Ania Spencer Unavailable Opal Leyva Unavailable [phone] Reason for Visit * Reason Onset Date Comments Results 11/02/2024 Encounter Details Date Type Department Care Team ([facility] st Contact Info) Description 11/02/2024 Results Follow-Up [facility] MEDICINE 230 [place] [address] Sarita Baker MD 230 [place] [address] XR Shoulder 2+ Views Left Social History [...] PM EDT TC placed to pt. At [phone], no answer, left VM requesting call back to Red Team RN upon receipt of message. No one listed on most recent HIPAA- September. Pt. To f/up prn for normal result documented in this encounter Plan of Treatment Upcoming Encounters Date Type Department Care Team (Late st Contact Info) Description 11/15/2024 11:30 AM EDT Clinical Support [address] [address] Opal Steiner RN 11/27/2024 10:30 AM EDT Medication Management [address] [address] Puia, Katlyn, PharmD [address] [place] [address] documented as of this encounter Goals Goal [...] documented as of this encounter Care Teams Kitchen And Bath Designer Relationship Specialty Start Date End Date Name, MD Kiel [address] [place] [address] PCP - General Family Medicine 07/15/15 Puia, Katlyn, PharmD [address] [place] [address] Pharmacist Internal Medicine 10/08/22 Ania Spencer 08/20/24 Opal Leyva Registered Nurse 10/29/24 Marta Ovalle Classroom MonitorPublic Safety Telecommunicator 05/25/23 documented as of this encounter
--- OUTSIDE RECORDS SUMMARY | 2024-11-07 14:52 | XMS_ITS | Encounter Summary ---
Author Organization [employer] Address [address] [place] [address] 7t [place] [address] Care Team Providers Care Wool Shearer Name Role Phone Name, Kiel BAILEY Primary Care Provider [phone] Katlyn Rodriguez PharmD Unavailable [phone] Nehal Ann RN Unavailable [phone] Ania Spencer Unavailable Opal Leyva Unavailable [phone] Reason for Referral * Consultation (Routine) - Closed Specialty Diagnoses / Procedures Referred By Carroll t Referred To Contact Occupational Therapy Diagnoses Weakness of both lower extremities Hemiparesis of left dominant side as late effect of cerebral infarction (CMS/HCC) Lizzie Alfaro NP [address] [place] [address] Phone: tel: fax: [facility] [address] [place] [address] Phone: tel: fax: Referral ID Status Reason Start Date Expiration Date V isits Requested Visits Authorized [id number] Closed Specialty Services Required 09/06/2024 09/06/2025 20 20 * Consultation (Routine) - Closed Specialty Diagnoses / Procedures Referred By Carroll hoover Referred To Contact Physical Therapy Diagnoses Weakness of both lower extremities Lizzie Alfaro NP [address] [place] [address] Phone: tel: fax: [facility] [address] [place], [place] Phone: tel: fax: Referral ID Status Reason Start Date Expiration Date V isits Requested Visits Authorized [id number] Closed Specialty Services Required 09/06/2024 09/06/2025 20 20 Encounter Details Date Type Department Care Team (Late st Contact Info) Description 09/06/2024 Orders Only [facility] MEDICINE 230 [place] [address] Lizzie Alfaro NP [address] [place], [place] [phone] Weakness of both lower extremities (Primary Dx); [...] 11/15/2024 11:30 AM EDT Clinical Support [address] [address] Opal Steiner RN 11/27/2024 10:30 AM EDT Medication Management [address] [address] Puia, Katlyn, PharmD [address] [place] [address] Scheduled Referrals Name Type Priority Associated Diagnoses Orde r Schedule Referral to Physical Therapy Outpatient Referral Routine Weakness of both lower extremities Expected: 09/06/2024 (Approximate), Expires: 09/06/2025 Referral to Occupational Therapy Outpatient Referral Routine Weakness of both lower extremities Hemiparesis of left dominant side as late effect of cerebral infarction ([facility]CC) Expected: 09/06/2024 (Approximate), Expires: 09/06/2025 documented as [...] documented as of this encounter Care Teams Wool Shearer Relationship Specialty Start Date End Date Name, MD Kiel 230 [place] [address] PCP - General Family Medicine 07/15/15 Katlyn Rodriguez, Bin [address] [place] [address] Pharmacist Internal Medicine 10/08/22 Nehal Ann RN [address] [place] [address] Registered Nurse Family Medicine 08/20/24 10/29/24 Ania Spencer 08/20/24 Opal Leyva Registered Nurse 10/29/24 Marta Ovalle Keg InspectorSlater Apprentice 05/25/23 documented as of this encounter
--- OUTSIDE RECORDS SUMMARY | 2024-11-07 14:52 | XMS_ITS | Encounter Summary ---
Author Organization [employer] Address [address] [facility] 7t [place] [address] Care Team Providers Care Sash Assembler Name Role Phone Name, Kiel BAILEY Primary Care Provider Katlyn Rodriguez PharmD Unavailable [phone] Nehal Ann RN Unavailable [phone] Ania Spencer Unavailable Opal Leyva Unavailable [phone] Reason for Visit * Reason Onset Date Comments Durable Medical Equipment 12/06/2022 Encounter Details Date Type Department Care Team (Late st Contact Info) Description 12/06/2022 Telephone [facility] MEDICINE 230 [place], [place] [phone] Name, MD Kiel [address] [place], [place] [phone] Durable Medical Equipment Social History Tobacco Use [...] to message above. Please contact pt at [phone] (Ukrainian) * Telephone Encounter - Jean-Paul Finch - 12/06/2022 3:29 PM EDT Tc from pt requesting status on some bed absorbant pads to not stain bed. Please contact pt at [phone] Ukrainian Speaker documented in this encounter Plan of Treatment Upcoming Encounters Date Type Department Care Team (Late st Contact Info) Description 11/15/2024 11:30 AM EDT Clinical Support [address] [address] Opal Steiner RN 11/27/2024 10:30 AM EDT Medication Management [facility] MEDICINE [address] [place] [address] PuiaKatlyn, PharmD [address] [place] [address] documented as of this encounter Goals Goal [...] documented as of this encounter Care Teams Sash Assembler Relationship Specialty Start Date End Date Name, MD Kiel [address] [place] [address] PCP - General Family Medicine 07/15/15 Puia, Katlyn, PharmD [address] [place] [address] Pharmacist Internal Medicine 10/08/22 Nehal Ann RN [address] [place] [address] Registered Nurse Family Medicine 08/20/24 10/29/24 Ania Spencer 08/20/24 Opal Leyva Registered Nurse 10/29/24 Marta Ovalle Flight DynamicistInternet Database Specialist 05/25/23 documented as of this encounter
--- OUTSIDE RECORDS SUMMARY | 2024-11-07 14:52 | XMS_ITS ---
Author Organization [employer] Address [address] [place] [address] 7t [place] [address] Care Team Providers Care Manager Port Name Role Phone Name, Kiel BAILEY Primary Care Provider [phone] Katlyn Rodriguez PharmD Unavailable Ania Spencer Unavailable Opal Leyva Unavailable [phone] [facility] Complex Status:Outreach In Progress (Enrolling) Start date:08/20/2024 Enrollment reason:ADT Feed Overview ED- Pt went to [facility] ED on 08/17/24. Case Team Name Relationship Phone Ania Spencer(Responsible Staff) [phone] Continued Care and Services Coordination
--- OUTSIDE RECORDS SUMMARY | 2024-11-07 14:52 | XMS_ITS | Encounter Summary ---
Author Organization [employer] Address [address] [facility] 7t [place] [address] Care Team Providers Care Stem Lead Former Name Role Phone Name, Kiel BAILEY Primary Care Provider [phone] Katlyn Rodriguez PharmD Unavailable [phone] Nehal Ann RN Unavailable [phone] Ania Spencer Unavailable Opal Leyva Unavailable [phone] Reason for Visit * Reason Onset Date Comments Durable Medical Equipment 01/24/2023 Encounter Details Date Type Department Care Team (Late st Contact Info) Description 01/24/2023 Telephone [facility] MEDICINE 230 [place], [place] [phone] Name, MD Kiel [address] [place], [place] [phone] Durable Medical Equipment Social History Tobacco Use [...] to errol. Any questions, contact pt at [phone] documented in this encounter Plan of Treatment Upcoming Encounters Date Type Department Care Team (Late st Contact Info) Description 11/15/2024 11:30 AM EDT Clinical Support [address] [address] Opal Steiner RN 11/27/2024 10:30 AM EDT Medication Management [facility] MEDICINE [address] [place] [address] Puia, Katlyn, PharmD [address] [place] [address] documented as of this encounter Goals Goal [...] documented as of this encounter Care Teams Stem Lead Former Relationship Specialty Start Date End Date Name, MD Kiel [address] [place] [address] PCP - General Family Medicine 07/15/15 Katlyn Rodriguez, PharmD [address] [place] [address] Pharmacist Internal Medicine 10/08/22 Nehal Ann RN [address] [place] [address] Registered Nurse Family Medicine 08/20/24 10/29/24 Ania Spencer 08/20/24 Opal Leyva Registered Nurse 10/29/24 Marta Ovalle Leak HunterShift Supervisor Film Processing 05/25/23 documented as of this encounter
--- OUTSIDE RECORDS SUMMARY | 2024-11-07 14:52 | XMS_ITS | Clinical Summary ---
Author Organization [facility] Address [address] [place] [address] Care Team Providers Care Pipe Organ Mechanic Name Role Phone Name, Kiel BAILEY Primary Care Provider [phone] Allergies Active Allergy Reactions Criticality Noted Date [...] age to complete this topic Care Teams Pipe Organ Mechanic Relationship Specialty Start Date End Date Name, MD Kiel 230 [facility] [address] [place] [address] PCP - General Internal Medicine 04/17/18
--- OUTSIDE RECORDS SUMMARY | 2024-11-07 14:52 | XMS_ITS | Encounter Summary ---
Author Organization [employer] Address [address] [place] [address] 7t [place] [address] Care Team Providers Care Sem Manager Name Role Phone Name, Kiel BAILEY Primary Care Provider [phone] Katlyn Rodriguez PharmD Unavailable [phone] Nehal Ann RN Unavailable [phone] Ania Spencer Unavailable Opal Leyva Unavailable [phone] Reason for Visit * Reason Comments Med Refill Encounter Details Date Type Department Care Team (Late st Contact Info) Description 07/02/2022 Refill [facility] MEDICINE 230 [place], [place] [phone] Name, MD Kiel [address] [place], [place] [phone] Chronic pain syndrome Social History Tobacco Use [...] Description 11/15/2024 11:30 AM EDT Clinical Support [address] [address] Opal Steiner, RN 11/27/2024 10:30 AM EDT Medication Management [address] [address] Katlyn Rodriguez PharmD [address] [place] [address] documented as of this encounter Visit Diagnoses Diagnosis Chronic pain syndrome documented in this encounter Care Teams Sem Manager Relationship Specialty Start Date End Date Name, MD Kiel [address] [place] [address] PCP - General Family Medicine 07/15/15 Katlyn Rodriguez, PharmD [address] [place] [address] Pharmacist Internal Medicine 10/08/22 Nehal Ann RN [address] [place] [address] Registered Nurse Family Medicine 08/20/24 10/29/24 Ania Spencer 08/20/24 Opal Leyva Registered Nurse 10/29/24 Marta Ovalle Gallery [employer] Museum AttendantWildlife Policy Professional 05/25/23 documented as of this encounter
--- OUTSIDE RECORDS SUMMARY | 2024-11-07 14:52 | XMS_ITS | Encounter Summary ---
Author Organization [employer] Address [address] [place] [address] 7t [place] [address] Care Team Providers Care Forwarder Operator Name Role Phone Name, Kiel BAILEY Primary Care Provider Katlyn Rodriguez PharmD Unavailable [phone] Nehal Ann RN Unavailable [phone] Ania Spencer Unavailable Opal Leyva Unavailable [phone] Reason for Visit * Reason Onset Date Comments FYI 08/03/2024 Encounter Details Date Type Department Care Team (Late st Contact Info) Description 08/03/[address] [facility] MEDICINE [address] [place], [place] [phone] Name, MD Kiel [address] [place], [place] [phone] FYI Social History Tobacco Use Types Packs/Day [...] will be admitting pt for OT and usp. If any questions you can contact pt at [phone], documented in this encounter Plan of Treatment Upcoming Encounters Date Type Department Care Team (Late st Contact Info) Description 11/15/2024 11:30 AM EDT Clinical Support [address] [address] Opal Steiner, MARINA 11/27/2024 10:30 AM EDT Medication Management [facility] MEDICINE [address] [place] [address] Puia, Katlyn, PharmD [address] [place] [address] documented as of this encounter Goals Goal [...] documented as of this encounter Care Teams Forwarder Operator Relationship Specialty Start Date End Date Name, MD Kiel [address] [place] [address] PCP - General Family Medicine 07/15/15 Puia, Katlyn, PharmD [address] [place] [address] Pharmacist Internal Medicine 10/08/22 Nehal Ann, MARINA [address] [place] [address] Registered Nurse Family Medicine 08/20/24 10/29/24 Ania Spencer 08/20/24 Opal Leyva Registered Nurse 10/29/24 Marta Ovalle Senior Web ArchitectLedger Clerk 05/25/23 documented as of this encounter
--- OUTSIDE RECORDS SUMMARY | 2024-11-07 14:52 | XMS_ITS | Encounter Summary ---
Author Organization [employer] Address [address] [place] [address] 7t [place] [address] Care Team Providers Care Potato Loader Name Role Phone Name, Kiel BAILEY Primary Care Provider Katlyn Rodriguez PharmD Unavailable [phone] Nehal Ann RN Unavailable [phone] Ania Spencer Unavailable Opal Leyva Unavailable [phone] Reason for Visit * Reason Comments Med Refill Encounter Details Date Type Department Care Team (Late st Contact Info) Description 06/28/2022 Refill [facility] MEDICINE [address] [place], [place] [phone] Name, MD Kiel 230 [place], [place] [phone] Chronic pain syndrome Social History Tobacco Use [...] Description 11/15/2024 11:30 AM EDT Clinical Support [address] [address] Opal Steiner, RN 11/27/2024 10:30 AM EDT Medication Management [address] [address] Katlyn Rodriguez PharmD [address] [place] [address] documented as of this encounter Visit Diagnoses Diagnosis Chronic pain syndrome documented in this encounter Care Teams Potato Loader Relationship Specialty Start Date End Date Name, MD Kiel [address] [place] [address] PCP - General Family Medicine 07/15/15 Katlyn Rodriguez, PharmD [address] [place] [address] Pharmacist Internal Medicine 10/08/22 Nehal Ann RN [address] [place] [address] Registered Nurse Family Medicine 08/20/24 10/29/24 Ania Spencer 08/20/24 Opal Leyva Registered Nurse 10/29/24 Marta Ovalle Grocery Store Courtesy ClerkSound Technician Supervisor 05/25/23 documented as of this encounter
--- OUTSIDE RECORDS SUMMARY | 2024-11-07 14:52 | XMS_ITS | Encounter Summary ---
Author Organization [employer] Address [address] [facility] 7t [place] [address] Care Team Providers Care V Belt Finisher Name Role Phone Name, Kiel BAILEY Primary Care Provider [phone] Katlyn Rodriguez PharmD Unavailable [phone] Ania Spencer Unavailable Opal Leyva Unavailable [phone] Encounter Details Date Type Department Care Team (Latest Contact Info) Description 11/06/2024 Travel Social History Tobacco Use Types Packs/Day [...] Description 11/15/2024 11:30 AM EDT Clinical Support [address] [address] Opal Steiner RN 11/27/2024 10:30 AM EDT Medication Management [address] [address] Puia, Katlyn, PharmD [address] [place] [address] documented as of this encounter Goals Goal [...] documented as of this encounter Care Teams V Belt Finisher Relationship Specialty Start Date End Date Name, MD Kiel [address] [place] [address] [phone] PCP - General Family Medicine 07/15/15 Katlyn Rodriguez PharmD 230 [facility] [place] [phone] Pharmacist Internal Medicine 10/08/22 Ania Spencer 08/20/24 Opal Leyva Registered Nurse 10/29/24 Marta Ovalle Hydrographic EngineerSexual Assault Counselor 05/25/23 documented as of this encounter
--- OUTSIDE RECORDS SUMMARY | 2024-11-07 14:52 | XMS_ITS | Encounter Summary ---
Author Organization [employer] Address [address] [facility] 7t [place] [address] Care Team Providers Care Sql Report Developer Name Role Phone Name, Kiel BAILEY Primary Care Provider [phone] Katlyn Rodriguez PharmD Unavailable [phone] Nehal Ann RN Unavailable [phone] Ania Spencer Unavailable Opal Leyva Unavailable [phone] Encounter Details Date Type Department Care Team (Late Contact Info) Description 03/12/2022 Orders Only [facility] MED [facility] PEDS [address] [place] [address] Millie Sawant LPN Social History Tobacco Use [...] 11/15/2024 11:30 AM EDT Clinical Support [address] [address] Opal Steiner, RN 11/27/2024 10:30 AM EDT Medication Management [address] [address] Katlyn Rodriguez PharmD [address] [place] [address] documented as of this encounter Visit Diagnoses Not on filedocumented in this encounter Care Teams Sql Report Developer Relationship Specialty Start Date End Date Name, MD Kiel [address] [place] [address] [phone] PCP - General Family Medicine 07/15/15 Katlyn Rodriguez PharmD [address] [place] [address] Pharmacist Internal Medicine 10/08/22 Nehal Ann RN [address] [place] [address] Registered Nurse Family Medicine 08/20/24 10/29/24 Ania Spencer 08/20/24 Opal Leyva Registered Nurse 10/29/24 Marta Ovalle Janitorial AssistantGrinding Supervisor 05/25/23 documented as of this encounter
--- OUTSIDE RECORDS SUMMARY | 2024-11-07 14:52 | XMS_ITS | Encounter Summary ---
Author Organization [employer] Address [address] [facility] 7t [place] [address] Care Team Providers Care Senior Software Quality Engineer Name Role Phone Name, Kiel BAILEY Primary Care Provider Katlyn Rodriguez PharmD Unavailable Nehal Ann RN Unavailable [phone] Ania Spencer Unavailable Opal Leyva Unavailable [phone] Reason for Visit * Reason Comments Med Refill Encounter Details Date Type Department Care Team (Late st Contact Info) Description 06/08/2024 Refill [facility] MED & PEDS [address] [place], [place] [phone] Name, MD Kiel [address] [place] [address] Chronic pain syndrome Social History Tobacco Use [...] the past 12 months, has t he [employer], gas, oil or water [employer] threatened to shut off services in your [...] Description 11/15/2024 11:30 AM EDT Clinical Support [facility] MEDICINE [address] [place] [address] Opal Steiner RN 11/27/2024 10:30 AM EDT Medication Management [facility] MEDICINE [address] [place] [address] PuiaReidKatlyn, PharmD [address] [place] [address] documented as of this encounter Goals Goal [...] as of this encounter Care Teams Senior Software Quality Engineer Relationship Specialty Start Date End Date Name, MD Kiel [address] [place], [place] [phone] PCP - General Family Medicine 07/15/15 Katlyn Rodriguez, PharmD [address] [place] [address] Pharmacist Internal Medicine 10/08/22 Nehal Ann RN [address] [place] [address] Registered Nurse Family Medicine 08/20/24 10/29/24 Ania Spencer 08/20/24 Opal Leyva Registered Nurse 10/29/24 Marta Ovalle Dry Goods ClerkTooth Cutter Spur 05/25/23 documented as of this encounter
--- OUTSIDE RECORDS SUMMARY | 2024-11-07 14:52 | XMS_ITS | Encounter Summary ---
Author Organization [employer] Address [address] [place] [address] 7t [place] [address] Care Team Providers Care Instructor Business Education Name Role Phone Name, Kiel BAILEY Primary Care Provider Katlyn Rodriguez PharmD Unavailable [phone] Nehal Ann RN Unavailable [phone] Ania Spencer Unavailable Opal Leyva Unavailable [phone] Reason for Visit * Reason Onset Date Comments Appointment Request 02/29/2024 Encounter Details Date Type Department Care Team ([facility] st Contact Info) Description 02/29/2024 Telephone [facility] MEDICINE [address] [place], [place] [phone] Name, MD Kiel [address] [place], [place] [phone] Appointment Request Social History Tobacco Use Types [...] the past 12 months, has t he [employer], gas, oil or water [employer] games threatened to shut off services in your [...] speak mexican so you will need an patient access associate. documented in this encounter Plan of Treatment Upcoming Encounters Date Type Department Care Team (Late st Contact Info) Description 11/15/2024 11:30 AM EDT Clinical Support [facility] MED[facility]INE [address] [place] [phone] Opal Steiner, MARINA 11/27/2024 10:30 AM EDT Medication Management [facility] [address] [place] [phone] Katlyn Rodriguez, Bin [address] [place] [address] documented as of this encounter Goals Goal [...] as of this encounter Care Teams Instructor Business Education Relationship Specialty Start Date End Date Name, MD Kiel [address] [place] [address] PCP - General Family Medicine 07/15/15 Puia, Katlyn, PharmD [address] [place] [address] Pharmacist Internal Medicine 10/08/22 Nehal Ann RN [address] [place] [phone] Registered Nurse Family Medicine 08/20/24 10/29/24 Ania Spencer 08/20/24 Opal Leyva Registered Nurse 10/29/24 Marta Ovalle Molder Automobile CarpetsCassandra Consultant 05/25/23 documented as of this encounter
--- OUTSIDE RECORDS SUMMARY | 2024-11-07 14:52 | XMS_ITS | Clinical Summary ---
Author Organization [facility] Address [address] [place] [address] [place] [phone] Phone Care Team Providers Care Postal Service Mail Processor Name Role Phone Unavailable Primary Care Provider [...] Devices Not on file Insurance [employer] [place] [address] [address] [place] [address] [place] [address] [place] [address] [place] [address] [place] [place] [address] [employer] Additional Source Comments The information contained in this document represents components of the legal health record. It is not the complete legal health record.[facility]
--- OUTSIDE RECORDS SUMMARY | 2024-11-07 14:52 | XMS_ITS | Encounter Summary ---
Author Organization [employer] Address [address] [place] [address] 7t [place] [address] Care Team Providers Care Certified Histologic Technician Name Role Phone Name, Kiel BAILEY Primary Care Provider Katlyn Rodriguez PharmD Unavailable Nehal Ann RN Unavailable [phone] Ania Spencer Unavailable Opal Leyva Unavailable [phone] Reason for Visit * Reason Comments Med Refill Encounter Details Date Type Department Care Team (Late st Contact Info) Description 02/10/2022 Refill [facility] [address] [place], [place] [phone] Name, MD Kiel [address] [place] [address] Chronic pain syndrome (Primary Dx) Social History [...] Description 11/15/2024 11:30 AM EDT Clinical Support [address] [address] Opal Steiner, RN 11/27/2024 10:30 AM EDT Medication Management [address] [address] Katlyn Rodriguez PharmD [address] [place] [address] documented as of this encounter Visit Diagnoses Diagnosis Chronic pain syndrome- Primary documented in this encounter Care Teams Certified Histologic Technician Relationship Specialty Start Date End Date Name, MD Kiel [address] [place] [phone] PCP - General Family Medicine 07/15/15 Katlyn Rodriguez, PharmD [address] [place] [phone] Pharmacist Internal Medicine 10/08/22 Nehal Ann, MARINA [address] [place] [address] Registered Nurse Family Medicine 08/20/24 10/29/24 Ania Spencer 08/20/24 Opal Leyva Registered Nurse 10/29/24 Marta Ovalle Personal Lines Sales ExecutiveGoal Umpire 05/25/23 documented as of this encounter
--- OUTSIDE RECORDS SUMMARY | 2024-11-07 14:52 | XMS_ITS | Encounter Summary ---
Author Organization [facility] Address [address] [facility] [address] [place] [address] Phone Care Team Providers Care Calculation Clerk Name Role Phone Unavailable Primary Care Provider Unavailabl e Encounter Details Date Type Department Care Team (Latest Contact Info) Description 01/04/2020 Ancillary Orders [facility] [address] [place] [address] [place] [address] Bright Jesus, DO [address] [place] [address] Chest pain, unspecified type Social History Tobacco [...] sinus rhythm without ectopy. Procedure Note Stanley Cadlerón MD - 01/09/2020 24-hour monitor: The baseline [...] It is not the complete legal health record.[facility]
--- OUTSIDE RECORDS SUMMARY | 2024-11-07 14:52 | XMS_ITS ---
Author Organization [employer] Address [address] [place] [address] 7t [place] [address] Care Team Providers Care Dry Food Products Mixer Name Role Phone Name, Kiel BAILEY Primary Care Provider Katlyn Rodriguez PharmD Unavailable [phone] Ania Spencer Unavailable Opal Leyva Unavailable [phone] CM Complex Status:Enrolled (Active) Start date:08/20/2024 Enrollment date:09/04/2024 Enrollment reason:ADT Feed Overview ED- Pt went to [facility] on 08[facility]17/24. Case Team Name Relationship Phone Opal Leyva(Responsible Staff) Registered Nurse [phone] Continued Care and Services Coordination
--- OUTSIDE RECORDS SUMMARY | 2024-11-07 14:52 | XMS_ITS | Encounter Summary ---
Author Organization [employer] Address [address] [place] [address] 7t [place] [address] Care Team Providers Care Silver Designer Name Role Phone Name, Kiel BAILEY Primary Care Provider Katlyn Rodriguez PharmD Unavailable [phone] Nehal Ann RN Unavailable [phone] Ania Spencer Unavailable Opal eLyva Unavailable [phone] Encounter Details Date Type Department Care Team ([facility] Contact Info) Description 02/23/2022 Orders Only [facility] [address] [place], [place] [phone] Name, MD Kiel [address] [place] [address] Social History Tobacco Use Types Packs/Day Years [...] 11/15/2024 11:30 AM EDT Clinical Support [address] [address] Opal Steiner, RN 11/27/2024 10:30 AM EDT Medication Management [address] [address] Katlyn Rodriguez, PharmD [address] [place] [address] documented as of this encounter Visit Diagnoses Not on filedocumented in this encounter Care Teams Silver Designer Relationship Specialty Start Date End Date Name, MD Kiel [address] [place] [address] [phone] PCP - General Family Medicine 07/15/15 Katlyn Rodriguez, PharmD [address] [place] [address] [phone] Pharmacist Internal Medicine 10/08/22 Nehal Ann, MARINA [address] [place] [address] Registered Nurse Family Medicine 08/20/24 10/29/24 Ania Spencer 08/20/24 Opal Leyva Registered Nurse 10/29/24 Marta Ovalle Plastic Surgery SpecialistChicken Cutter 05/25/23 documented as of this encounter
== END 2024-11-07 11:30 | disposition home or self-care (01) ==
LOC: HO.HHCX 11:29
PROVIDERS: Visit Provider Family Medicine
DX: R60.0 Localized edema (principal)
CPT/HCPCS: 73130

== ENCOUNTER → 2024-11-07 11:31 | Outpatient (BNV) | payer MEDICAID, SELFPAY | PROVIDERS: Visit Provider Radiology Diagnostic Radiology | DX: M79.642 Pain in left hand (principal) | CPT/HCPCS: 73130 ==

== ENCOUNTER 2024-11-07 13:00 | Outpatient (RCR) | payer MEDICAID, SELFPAY | END 2024-12-25 10:07 | disposition home or self-care (01) | LOC: HO.PT 13:00 | PROVIDERS: Absent Provider Internal Medicine Geriatric Medicine; PCP Nurse Practitioner; Visit Provider Nurse Practitioner | DX: I69.352 Hemiplegia and hemiparesis following cerebral infarction affecting left dominant side (principal) | CPT/HCPCS: 97110; 97112; 97116; 97162 ==

== ENCOUNTER 2024-11-16 11:01 | Outpatient (REF) | payer MEDICAID, SELFPAY ==
--- OUTSIDE RECORDS SUMMARY | 2023-11-24 09:53 | XMS_ITS | Encounter Summary ---
Author Organization [facility] Address [address] [place] [address] Care Team Providers Care Licensed Plumber Name Role Phone Name, Kiel BAILEY Primary Care Provider [phone] Encounter Details Date Type Department Care Team (Late st Contact Info) Description 11/24/2023 9:53 AM EDT Hospital Encounter TH HISTORIC ENCOUNTERS EASTERN CONVERSION ONLY Geoffrey-Art Vitale MD [address] [place] [address] Social History Tobacco Use Types [...] 2:17 PM Encounter Date: 11/24/2023 Status: Signed Director Dental Services: Art Davis MD (Physician) CHIEF COMPLAINT: Chief Complaint Patient presents with ? Follow-up Diffuse large B-cell lymphoma Stage III Completed 6 cycles of R-CHOP in July 23, 2018 IDENTIFIER:Sarita Puga is a 58 y.o. female. HPI: The patient returns for follow up of Large B-cell lymphoma. Here with her daughter , who is telugu to nepali community reinvestment act officer Patient reports that she has been doing [...] accompanied by her daughter and girlfriend. As Norwegian to Tajik community reinvestment act officer assisted with the discussion. She had a [...] AM EDT Office Visit Orthopedic Surgery - [place] [address] [address] Wseley Garcia DPM [address] [phone] documented as of this encounter Procedures Procedure [...] documented as of this encounter Care Teams Licensed Plumber Relationship Specialty Start Date End Date Name, MD Kiel 4 [place], [place] PCP - General Internal Medicine 08/28/15 documented as of this encounter
--- OUTSIDE RECORDS SUMMARY | 2023-11-24 10:30 | XMS_ITS | Encounter Summary ---
Author Organization [facility] Address [address] [place] [address] Care Team Providers Care Labor Specialist Name Role Phone Name, Kiel BAILEY Primary Care Provider [phone] Encounter Details Date Type Department Care Team (Late Contact Info) Description 11/24/2023 10:30 AM EDT Hospital Encounter TH HISTORIC ENCOUNTERS EASTERN CONVERSION ONLY Geoffrey-Art Vitale MD [address] [place] [phone] Social History Tobacco Use Types Packs/Day Years [...] 9:45 AM EDT Office Visit Orthopedic Surgery [facility] 250 175 [facility] 250 [place] [phone] Wesley Garcia, DPM 175 [facility] 250 [place] [phone] documented as of this encounter Visit Diagnoses Not on filedocumented in this encounter Additional Health Concerns Infection Onset Date Last Indicated Resolved Time Respiratory Rule-Out 02/05/2024 02/05/2024 024 8:09 AM EST COVID-19 Rule-Out 02/05/2024 02/05/2024 02/05/2024 8:09 AM EST documented as of this encounter Care Teams Labor Specialist Relationship Specialty Start Date End Date Name, MD Kiel 4 [place], [place] PCP - General Internal Medicine 08/28/15 documented as of this encounter
--- NOTE | ~2024-11-16 | XR_ITS ---
EXAMINATION: XR WRIST, RIGHT CLINICAL INFORMATION: M79.641 - Pain in right hand COMPARISON: October 26, 2024 TECHNIQUE: PA, lateral, and oblique views of the right wrist. Scaphoid projection. FINDINGS: There is a persistent 0.7 mm gap at the fragment of the styloid processes right radius without callus formation. The scaphoid is intact. Degenerative changes in the first carpometacarpal joint and the first carpal phalangeal joint. No subcutaneous emphysema. No metallic or radiopaque foreign body.. XR/XR wrist RT w scaphoid IMPRESSION: Nonunion fracture, styloid processes right radius. Electronically signed by: Felix Fall MD 11/16/2024 12:22 PM EDT
--- OUTSIDE RECORDS SUMMARY | 2024-11-16 12:45 | XMS_ITS | Encounter Summary ---
Author Organization [facility] Address [address] [place] [address] Care Team Providers Care Casework Supervisor Name Role Phone Name, Kiel BAILEY Primary Care Provider Unavailabl e Name, Kiel BAILEY Primary Care Provider Unavailabl e Philly Vela DO Primary Care Pro vider Unavailable Name, Kiel BAILEY Primary Care Provider Unavailabl e Encounter Details Date Type Department Care Team Description 11/25/2011 Maintenance Helper Report Medical Records [address] [place] [address] Mohini Ellis NP Social History Tobacco Use [...] on filedocumented in this encounter Care Teams Casework Supervisor Relationship Specialty Start Date End Date Kiel Shaffer MD PCP - General 05/26/09 04/27/15 Kiel Shaffer MD PCP - General Internal Medicine 04/28/15 05/05/15 Philly Vela DO PCP - General Internal Medicine 05/06/15 08/27/15 Kiel Shaffer MD PCP - General Internal Medicine 08/28/15 documented as of this encounter
--- OUTSIDE RECORDS SUMMARY | 2024-11-16 12:45 | XMS_ITS | Encounter Summary ---
Author Organization [facility] Address [address] [place] [address] Care Team Providers Care Horseshoer Name Role Phone Name, Kiel BAILEY Primary Care Provider Unavailabl e Name, Kiel BAILEY Primary Care Provider Unavailabl e Philly Vela DO Primary Care Pro vider Unavailable Name, Kiel BAILEY Primary Care Provider Unavailabl e Encounter Details Date Type Department Care Team Description 11/25/2011 Release of Information Medical Records [address] [place] [address] Abstract, Provider Social History Tobacco Use Types [...] on filedocumented in this encounter Care Teams Horseshoer Relationship Specialty Start Date End Date Kiel Shaffer MD PCP - General 05/26/09 04/27/15 Kiel Shaffer MD PCP - General Internal Medicine 04/28/15 05/05/15 Philly Vela DO PCP - General Internal Medicine 05/06/15 08/27/15 Kiel Shaffer MD PCP - General Internal Medicine 08/28/15 documented as of this encounter
--- OUTSIDE RECORDS SUMMARY | 2024-11-16 12:45 | XMS_ITS | Encounter Summary ---
[facility] Organization [facility] Address [address] [place] [address] Care Team Providers Care Stock Taker Name Role Phone Name, Kiel BAILEY Primary Care Provider Unavailabl e Name, Kiel BAILEY Primary Care Provider Unavailabl e Philly Vela DO Primary Care Pro vider Unavailable Name, Kiel BAILEY Primary Care Provider Unavailabl e Encounter Details Date Type Department Care Team Description 01/04/2011 Router Operator Pin Report Medical Records [address] [place] [address] Shon Blanca Social History Tobacco Use Types [...] on filedocumented in this encounter Care Teams Stock Taker Relationship Specialty Start Date End Date Deena, MD Kiel PCP - General 05/26/09 04/27/15 Kiel Shaffer MD PCP - General Internal Medicine 04/28/15 05/05/15 Philly Vela DO PCP - General Internal Medicine 05/06/15 08/27/15 Kiel Shaffer MD PCP - General Internal Medicine 08/28/15 documented as of this encounter
--- OUTSIDE RECORDS SUMMARY | 2024-11-16 12:45 | XMS_ITS | Encounter Summary ---
[facility] Organization [facility] Address [address] [place] [address] Care Team Providers Care Review Appraiser Name Role Phone Name, Kiel BAILEY Primary Care Provider Unavailabl e Name, Kiel BAILEY Primary Care Provider Unavailabl e Philly Vela DO Primary Care Pro vider Unavailable Name, Kiel BAILEY Primary Care Provider Unavailabl e Encounter Details Date Type Department Care Team Description 09/16/2010 Manager Lsw Report Medical Records [address] [place] [address] Shon Blanca Social History Tobacco Use Types [...] on filedocumented in this encounter Care Teams Review Appraiser Relationship Specialty Start Date End Date Deena, MD Kiel PCP - General 05/26/09 04/27/15 Kiel Shaffer MD PCP - General Internal Medicine 04/28/15 05/05/15 Philly Vela DO PCP - General Internal Medicine 05/06/15 08/27/15 Kiel Shaffer MD PCP - General Internal Medicine 08/28/15 documented as of this encounter
--- OUTSIDE RECORDS SUMMARY | 2024-11-16 12:45 | XMS_ITS | Encounter Summary ---
[facility] Address [address] [place] [address] Care Team Providers Care Scanning Clerk Name Role Phone Name, Kiel BAILEY Primary Care Provider Unavailabl e Name, Kiel BAILEY Primary Care Provider Unavailabl e Philly Vela DO Primary Care Pro vider Unavailable Name, Kiel BAILEY Primary Care Provider Unavailabl e Encounter Details Date Type Department Care Team Description 11/20/2010 Nursing Informatics Clinical Analyst Report Medical Records [address] [place] [address] Shon Blanca Social History Tobacco Use Types [...] on filedocumented in this encounter Care Teams Scanning Clerk Relationship Specialty Start Date End Date Deena, MD Kiel PCP - General 05/26/09 04/27/15 Kiel Shaffer MD PCP - General Internal Medicine 04/28/15 05/05/15 Philly Vela DO PCP - General Internal Medicine 05/06/15 08/27/15 Kiel Shaffer MD PCP - General Internal Medicine 08/28/15 documented as of this encounter
--- OUTSIDE RECORDS SUMMARY | 2024-11-16 12:45 | XMS_ITS | Encounter Summary ---
Author Organization [facility] Address [address] [place] [address] Care Team Providers Care Engineering Lecturer Name Role Phone Name, Kiel BAILEY Primary Care Provider Unavailabl e Name, Kiel BAILEY Primary Care Provider Unavailabl e Philly Vela DO Primary Care Pro vider Unavailable Name, Kiel BAILEY Primary Care Provider Unavailabl e Encounter Details Date Type Department Care Team Description 03/16/2012 Release of Information Medical Records [address] [place] [id number] Abstract, Provider Social History Tobacco Use Types [...] filedocumented in this encounter Care Teams Engineering Lecturer Relationship Specialty Start Date End Date Kiel Shaffer MD PCP - General 05/26/09 04/27/15 Kiel Shaffer MD PCP - General Internal Medicine 04/28/15 05/05/15 Philly Vela DO PCP - General Internal Medicine 05/06/15 08/27/15 Kiel Shaffer MD PCP - General Internal Medicine 08/28/15 documented as of this encounter
--- OUTSIDE RECORDS SUMMARY | 2024-11-16 12:45 | XMS_ITS | Encounter Summary ---
Author Organization [facility] Address [address] [place] [address] Care Team Providers Care Car Supplier Name Role Phone Name, Kiel BAILEY Primary Care Provider Unavailabl e Name, Kiel BAILEY Primary Care Provider Unavailabl e Philly Vela DO Primary Care Pro vider Unavailable Name, Kiel BAILEY Primary Care Provider Unavailabl e Encounter Details Date Type Department Care Team Description 10/09/2009 Pharmacy Technician Program Director Report Medical Records [address] [place] [address] Maricle Walls NP Social History Tobacco Use Types [...] on filedocumented in this encounter Care Teams Car Supplier Relationship Specialty Start Date End Date Kiel Shaffer MD PCP - General 05/26/09 04/27/15 Kiel Shaffer MD PCP - General Internal Medicine 04/28/15 05/05/15 Philly Vela DO PCP - General Internal Medicine 05/06/15 08/27/15 Kiel Shaffer MD PCP - General Internal Medicine 08/28/15 documented as of this encounter
--- OUTSIDE RECORDS SUMMARY | 2024-11-16 12:45 | XMS_ITS | Clinical Summary ---
Author Organization [facility] Address [address] [place] [address] Phone Care Team Providers Care Marketing Community Liaison Name Role Phone Name, Kiel BAILEY Primary Care Provider [phone] Allergies Active Allergy Reactions Criticality Noted Date [...] Problem Noted Date Diagnosed Date COPD exacerbation ([facility] V24, [facility] V28) Abnormal nuclear stress test 11/06/2014 Rib fracture 12/24/2013 Overview (12/12/2023): Non displaced, probable froacture on the right ninth and tenth Abdominal pain 08/15/2013 Lipoma of abdominal wall 11/02/2011 Visual field defect 03/29/2011 Cocaine abuse, episodic use ([facility] V24, [facility] V28) 06/17/2010 Low back pain radiating to left leg 10/08/2009 Overview (12/12/2023): The patient follows with [facility] and is treated with injections to the LS. Asthmatic bronchitis , chronic [place] [place], [facility] V28) 07/07/2009 Overview (12/12/2023): Severe and worse in the spring. Last hospitalazion in May and 3 ER visits Hospital 08/02 Known medical problems 06/05/2009 Tobacco use disorder 06/05/2009 Hypertriglyceridemia 06/05/2009 Morbid obesity ([facility] V24, [facility] V28) 2009 Overview (12/12/2023): BMI 48.37 on 11/15/13 Depression 06/05/2009 Encounters Date Type Department Care Team Description 08/27/2024 9:45 AM EDT Office Visit Orthopedic Surgery - [place] [address] [place] [phone] Wesley Garcia, DPM Dermatophytosis of nail (Primary Dx); Pain in toe of right foot; Pain in toe of left foot; Diabetic mononeuropathy simplex ([facility] V24, [facility] V28); Tinea pedis of both feet from [...] TOTAL HYSTERECTOMY WITH BSO; COMMENT: for bleeding, [facility] Medical History Medical History Date Comments Type II or unspecified type diabetes mellitus with unspecified complication, not stated as uncontrolled DX:Type II or unspecified t ype diabetes mellitus with unspecified complication, not stated as uncontrolled Unspecified essential hypertension DX:Unspecified essential hypertension Tobacco abuse DX:Tobacco abuse RAD (reactive airway disease) DX :RAD (reactive airway disease) Morbid obesity ([facility] V24, [facility] V28) DX:Morbid obesity ([facility]) Asthmatic bronchitis , chron ic ([facility] V24, [facility] V28) 07/07/2009 DX:Asthmatic bronchitis , ch ronic ([facility]) Hypertriglyceridemia 06/05/2009 DX:Hypertri glyceridemia Rib fracture 12/24/2013 [...] AM EDT Office Visit Orthopedic Surgery - [place] [address] [facility] [address] [place] [address] Wesley Garcia, DPM [address] [phone] Health Maintenance Due Date Last [...] LAB CHEMISTRY METHOD 02/06/2024 3:36 AM EST [facility] Potassium 4.1 3.5 - 5.5 mmol/L LAB CHEMISTRY METHOD 02/06/2024 3:36 AM EST [facility] Chloride 104 96 - 110 mmol/L LAB CHEMISTRY METHOD 02/06/2024 3:36 AM EST [facility] CO2 23 21 - 32 mmol/L LAB CHEMISTRY METHOD 02/06/2024 3:36 AM [facility] Anion Gap 9 3 - 11 LAB CHEMISTRY METHOD 02/06/2024 3:36 AM [facility] Glucose 244(H) 70 - 100 mg/dL LAB CHEMISTRY METHOD 02/06/2024 3:36 AM [facility] BUN 17 5 - 25 mg/dL LAB CHEMISTRY METHOD 02/06/2024 3:36 AM [facility] Creatinine 0.71 0.50 - 1.10 mg/dL LAB CHEMISTRY METHOD 02/06/2024 3:36 AM [facility] eGFR 99 >=60 mL/min/1. 73m2 LAB CHEMISTRY METHOD 02/06/2024 3:36 AM [facility] Comment:Calculation based on the Chronic Kidney Disease Epidemiology Collaboration (CKD-EPI) equation refit without adjustment for race. BUN/Creatinine Ratio 23.9 LAB CHEMISTRY METHOD 02/06/2024 3:36 AM [facility] Calcium 9.3 8.5 - 10.5 mg/dL LAB CHEMISTRY METHOD 02/06/2024 3:36 AM [facility] Blood Venous blood specimen / Unknown Venipuncture / Unknown 02/06/2024 2:59 AM EST 02/06/2024 3:13 AM EST us Cindy SEGURA LAB BLOOD ORDERABLES Final R esult [facility] [address] [place] [address], * (ABNORMAL) Hemoglobin A1c (11/20/2014) Hemoglobin A1C 7.5(A) 4.0 - 6.0 % Blood Venous blood specimen / Unknown Historical Provider LAB BLOOD ORDERABLES Alis l Result * HM Urine Albumin Creatinine Ratio (05/10/2014) [facility] Urine Albumin Creatinine Ratio abstracted Historical Provider HEALTH MAINTENANCE Final Result * (ABNORMAL) Lipid panel (05/10/2014) [facility] LDL/HDL Ratio 4 0 - 4 Triglycerides 360(A) 0 - 150 mg/dL Cholesterol 179 0 - 200 mg/dL HDL 42 >=40 mg/dL LDL Cholesterol 65 0 - 100 mg/dL Blood Venous blood specimen / Unknown [facility] Provider LAB BLOOD ORDERABLES Alis l Result * Hepatitis C Screening (10/10/2013) [facility] Hepatitis C Screening abstracted [facility] Provider HEALTH MAINTENANCE Final Result from [...] currently active code status orders. Care Teams Marketing Community Liaison Relationship Specialty Start Date End Date Name, MD Kiel [address] [place], [place] PCP - General Internal Medicine 08/28/15
--- OUTSIDE RECORDS SUMMARY | 2024-11-16 12:45 | XMS_ITS | Encounter Summary ---
Author [facility] Address [address] [place] [address] Care Team Providers Care Rn Shift Mgr Name Role Phone Name, Kiel BAILEY Primary Care Provider Unavailabl e Name, Kiel BAILEY Primary Care Provider Unavailabl e Philly Vela DO Primary Care Pro vider Unavailable Name, Kiel BAILEY Primary Care Provider Unavailabl e Encounter Details Date Type Department Care Team Description 04/05/2012 Mold Puller Report Medical Records [address] [place] [address] Susan Yee Social History Tobacco Use Types [...] filedocumented in this encounter Care Teams Rn Shift Mgr Relationship Specialty Start Date End Date Kiel Shaffer MD PCP - General 05/26/09 04/27/15 Kiel Shaffer MD PCP - General Internal Medicine 04/28/15 05/05/15 Philly eVla DO PCP - General Internal Medicine 05/06/15 08/27/15 Kiel Shaffer MD PCP - General Internal Medicine 08/28/15 documented as of this encounter
--- OUTSIDE RECORDS SUMMARY | 2024-11-16 12:45 | XMS_ITS | Encounter Summary ---
[facility] Address [address] [place] [address] Care Team Providers Care Analytical Strategist Name Role Phone Name, Kiel BAILEY Primary Care Provider Unavailabl e Name, Kiel BAILEY Primary Care Provider Unavailabl e Philly Vela DO Primary Care Pro vider Unavailable Name, Kiel BAILEY Primary Care Provider Unavailabl e Encounter Details Date Type Department Care Team Description 12/25/2010 Eye Account Officer Report Medical Records [address] [place] [address] Fei Armstrong Social History Tobacco Use Types [...] on filedocumented in this encounter Care Teams Analytical Strategist Relationship Specialty Start Date End Date Deena, MD Kiel PCP - General 05/26/09 04/27/15 Kiel Shaffer MD PCP - General Internal Medicine 04/28/15 05/05/15 Philly Vela DO PCP - General Internal Medicine 05/06/15 08/27/15 Kiel Shaffer MD PCP - General Internal Medicine 08/28/15 documented as of this encounter
--- OUTSIDE RECORDS SUMMARY | 2024-11-16 12:46 | XMS_ITS | Encounter Summary ---
Author Organization [facility] Address [address] [place] [address] Care Team Providers Care Gas Line Repairer Name Role Phone NameKiel MD Primary Care Provider Unavailabl e Encounter Details Date Type Department Care Team Description 12/12/2015 Transfer Records Medical Records [address] [place] [address] Balaji Johnson DO Social History Tobacco Use [...] on filedocumented in this encounter Care Teams Gas Line Repairer Relationship Specialty Start Date End Date Name, MD Kiel PCP - General Internal Medicine 08/28/15 documented as of this encounter
--- OUTSIDE RECORDS SUMMARY | 2024-11-16 12:46 | XMS_ITS | Encounter Summary ---
Author Organization [facility] Address [address] [place] [address] Care Team Providers Care Brasswind Instrument Repairer Name Role Phone NameKiel MD Primary Care Provider Unavailabl e Encounter Details Date Type Department Care Team Description 04/03/2016 Release of Information Medical Records [address] [place] [address] Abstract, Provider Social History Tobacco Use Types [...] on filedocumented in this encounter Care Teams Brasswind Instrument Repairer Relationship Specialty Start Date End Date Name, MD Kiel PCP - General Internal Medicine 08/28/15 documented as of this encounter
--- OUTSIDE RECORDS SUMMARY | 2024-11-16 12:46 | XMS_ITS | Encounter Summary ---
Author Organization [facility] Address [address] [place] [address] Care Team Providers Care Bowling Ball Molder Name Role Phone Name, Kiel BAILEY Primary Care Provider Unavailabl e Name, Kiel BAILEY Primary Care Provider Unavailabl e Philly Vela DO Primary Care Pro vider Unavailable Name, Kiel BAILEY Primary Care Provider Unavailabl e Encounter Details Date Type Department Care Team Description 03/30/2011 Volcanology Professor Report Medical Records [address] [place] [phone] Mohini Ellis NP Social History Tobacco Use [...] on filedocumented in this encounter Care Teams Bowling Ball Molder Relationship Specialty Start Date End Date Kiel Shaffer MD PCP - General 05/26/09 04/27/15 Kiel Shaffer MD PCP - General Internal Medicine 04/28/15 05/05/15 Philly Vela DO PCP - General Internal Medicine 05/06/15 08/27/15 Kiel Shaffer MD PCP - General Internal Medicine 08/28/15 documented as of this encounter
--- OUTSIDE RECORDS SUMMARY | 2024-11-16 12:46 | XMS_ITS | Encounter Summary ---
[facility] Address [address] [place] [address] Care Team Providers Care Systems Administrator Name Role Phone Name, Kiel BAILEY Primary Care Provider Unavailabl e Name, Kiel BAILEY Primary Care Provider Unavailabl e Philly Vela DO Primary Care Pro vider Unavailable Name, Kiel BAILEY Primary Care Provider Unavailabl e Encounter Details Date Type Department Care Team Description 08/18/2011 Hospital Medical Records [address] [place] [address] Hever Bush Social History Tobacco Use Types [...] filedocumented in this encounter Care Teams Systems Administrator Relationship Specialty Start Date End Date Kiel Shaffer MD PCP - General 05/26/09 04/27/15 Kiel Shaffer MD PCP - General Internal Medicine 04/28/15 05/05/15 Philly Vela DO PCP - General Internal Medicine 05/06/15 08/27/15 Kiel Shaffer MD PCP - General Internal Medicine 08/28/15 documented as of this encounter
--- OUTSIDE RECORDS SUMMARY | 2024-11-16 12:46 | XMS_ITS | Encounter Summary ---
[facility] Address [address] [place] [address] Care Team Providers Care Repeater Operator Name Role Phone Name, Kiel BAILEY Primary Care Provider Unavailabl e Name, Kiel BAILEY Primary Care Provider Unavailabl e Philly Vela DO Primary Care Pro vider Unavailable Name, Kiel BAILEY Primary Care Provider Unavailabl e Encounter Details Date Type Department Care Team Description 08/26/2011 Hospital Medical Records [address] [place] [address] Dot Cordova Social History Tobacco Use Types [...] on filedocumented in this encounter Care Teams Repeater Operator Relationship Specialty Start Date End Date Kiel Shaffer MD PCP - General 05/26/09 04/27/15 Kiel Shaffer MD PCP - General Internal Medicine 04/28/15 05/05/15 Philly Vela DO PCP - General Internal Medicine 05/06/15 08/27/15 Kiel Shaffer MD PCP - General Internal Medicine 08/28/15 documented as of this encounter
--- OUTSIDE RECORDS SUMMARY | 2024-11-16 12:46 | XMS_ITS | Encounter Summary ---
Author Organization [facility] Address [address] [place] [address] Care Team Providers Care Acupressurist Name Role Phone Name, Kiel BAILEY Primary Care Provider [phone] Encounter Details Date Type Department Care Team Description 09/10/2022 Social Work [facility] On[facility] Services [address] [place] [address] Adina Archer, [facility] Social History Tobacco Use Types Packs/Day Years [...] on filedocumented in this encounter Care Teams Acupressurist Relationship Specialty Start Date End Date Name, MD Kiel [address] [place] [address] [address] [place] [address] PCP - General Internal Medicine 04/17/18 documented as of this encounter
--- OUTSIDE RECORDS SUMMARY | 2024-11-16 12:46 | XMS_ITS | Encounter Summary ---
[facility] Address [address] [place] [address] Care Team Providers Care Test Puller Name Role Phone Name, Kiel BAILEY Primary Care Provider Unavailabl e Name, Kiel BAILEY Primary Care Provider Unavailabl e Philly Vela DO Primary Care Pro vider Unavailable Name, Kiel BAILEY Primary Care Provider Unavailabl e Encounter Details Date Type Department Care Team Description 08/13/2010 Longshore Equipment Operator Report Medical Records [address] [place] [address] Shon Blanca Social History Tobacco Use Types [...] on filedocumented in this encounter Care Teams Test Puller Relationship Specialty Start Date End Date Deena, MD Kiel PCP - General 05/26/09 04/27/15 Kiel Shaffer MD PCP - General Internal Medicine 04/28/15 05/05/15 Philly Vela DO PCP - General Internal Medicine 05/06/15 08/27/15 Kiel Shaffer MD PCP - General Internal Medicine 08/28/15 documented as of this encounter
--- OUTSIDE RECORDS SUMMARY | 2024-11-16 12:46 | XMS_ITS | Encounter Summary ---
[facility] Address [address] [place] [address] Care Team Providers Care Veterinary X Ray Operator Name Role Phone Name, Kiel BAILEY Primary Care Provider Unavailabl e Name, Kiel BAILEY Primary Care Provider Unavailabl e Philly Vela DO Primary Care Pro vider Unavailable Name, Kiel BAILEY Primary Care Provider Unavailabl e Encounter Details Date Type Department Care Team Description 06/14/2012 Instructional Design Consultant Report Medical Records [address] [place] [address] Bright Jesus MD Social History Tobacco Use [...] on filedocumented in this encounter Care Teams Veterinary X Ray Operator Relationship Specialty Start Date End Date Kiel Shaffer MD PCP - General 05/26/09 04/27/15 Kiel Shaffer MD PCP - General Internal Medicine 04/28/15 05/05/15 Philly Vela DO PCP - General Internal Medicine 05/06/15 08/27/15 Kiel Shaffer MD PCP - General Internal Medicine 08/28/15 documented as of this encounter
--- OUTSIDE RECORDS SUMMARY | 2024-11-16 12:46 | XMS_ITS | Encounter Summary ---
[facility] Address [address] [place] [address] Care Team Providers Care Undercar Specialist Name Role Phone Name, Kiel BAILEY Primary Care Provider Unavailabl e Name, Kiel BAILEY Primary Care Provider Unavailabl e Philly Vela DO Primary Care Pro vider Unavailable Name, Kiel BAILEY Primary Care Provider Unavailabl e Encounter Details Date Type Department Care Team Description 11/06/2012 Healthcare Or Medical Report Medical Records [address] [place] [address] Zack Castro Social History Tobacco Use Types [...] on filedocumented in this encounter Care Teams Undercar Specialist Relationship Specialty Start Date End Date Kiel Shaffer MD PCP - General 05/26/09 04/27/15 Kiel Shaffer MD PCP - General Internal Medicine 04/28/15 05/05/15 Philly Vela DO PCP - General Internal Medicine 05/06/15 08/27/15 Kiel Shaffer MD PCP - General Internal Medicine 08/28/15 documented as of this encounter
--- OUTSIDE RECORDS SUMMARY | 2024-11-16 12:46 | XMS_ITS | Encounter Summary ---
[facility] Address [address] [place] [address] Care Team Providers Care Technical Intern Name Role Phone Name, Kiel BAILEY Primary Care Provider Unavailabl e Name, Kiel BAILEY Primary Care Provider Unavailabl e Philly Vela DO Primary Care Pro vider Unavailable Name, Kiel BAILEY Primary Care Provider Unavailabl e Encounter Details Date Type Department Care Team Description 04/17/2010 Hospital Medical Records [address] [place] [address] Diego Hernandez Social History Tobacco Use Types [...] on filedocumented in this encounter Care Teams Technical Intern Relationship Specialty Start Date End Date Kiel Shaffer MD PCP - General 05/26/09 04/27/15 Kiel Shaffer MD PCP - General Internal Medicine 04/28/15 05/05/15 Philly Vela DO PCP - General Internal Medicine 05/06/15 08/27/15 Kiel Shaffre MD PCP - General Internal Medicine 08/28/15 documented as of this encounter
--- OUTSIDE RECORDS SUMMARY | 2024-11-16 12:46 | XMS_ITS | Encounter Summary ---
Author Organization [facility] Address [address] [place] [address] Care Team Providers Care Staff Interpreter Name Role Phone Name, Kiel BAILEY Primary Care Provider Unavailabl e Name, Kiel BAILEY Primary Care Provider Unavailabl e Philly Vela DO Primary Care Pro vider Unavailable Name, Kiel BAILEY Primary Care Provider Unavailabl e Encounter Details Date Type Department Care Team Description 12/04/2014 Hospital Medical Records [address] [place] [address] Marcelo Husain Social History Tobacco Use Types Packs/Day Years [...] on filedocumented in this encounter Care Teams Staff Interpreter Relationship Specialty Start Date End Date Kiel Shaffer MD PCP - General 05/26/09 04/27/15 Kiel Shaffer MD PCP - General Internal Medicine 04/28/15 05/05/15 Philly Vela DO PCP - General Internal Medicine 05/06/15 08/27/15 Kiel Shaffer MD PCP - General Internal Medicine 08/28/15 documented as of this encounter
--- OUTSIDE RECORDS SUMMARY | 2024-11-16 12:46 | XMS_ITS | Clinical Summary ---
Author Organization [facility] Address [address] [place] [address] [place] [address] Phone Care Team Providers Care Metal Fence Erector Name Role Phone Unavailable Primary Care Provider [...] Devices Not on file Insurance [employer] [place] [address] [place] [place] [address] [place] [address] [place] [address] [employer] Additional Source Comments The information contained in this document represents components of the legal health record. It is not the complete legal health record.[facility]
--- OUTSIDE RECORDS SUMMARY | 2024-11-16 12:46 | XMS_ITS | Encounter Summary ---
[facility] Address [address] [place] [address] Care Team Providers Care Medical Insurance Biller Name Role Phone Philly Vela DO Primary Care Pro vider Unavailable NameKiel MD Primary Care Provider Unavailabl e Encounter Details Date Type Department Care Team Description 08/05/2015 Release of Information Medical Records [address] [place] [address] Abstract, Provider Social History Tobacco Use Types [...] filedocumented in this encounter Care Teams Medical Insurance Biller Relationship Specialty Start Date End Date Philly Vela DO PCP - General Internal Medicine 05/06/15 08/27/15 Kiel Shaffer MD PCP - General Internal Medicine 08/28/15 documented as of this encounter
--- OUTSIDE RECORDS SUMMARY | 2024-11-16 12:46 | XMS_ITS | Encounter Summary ---
[facility] Address [address] [place] [address] Care Team Providers Care Community Development Worker Name Role Phone Name, Kiel BAILEY Primary Care Provider Unavailabl e Name, Kiel BAILEY Primary Care Provider Unavailabl e Philly Vela DO Primary Care Pro vider Unavailable Name, Kiel BAILEY Primary Care Provider Unavailabl e Encounter Details Date Type Department Care Team Description 02/23/2013 Hospital Medical Records [address] [place] [address] Desilets, Shamir Mims MD Social History Tobacco [...] on filedocumented in this encounter Care Teams Community Development Worker Relationship Specialty Start Date End Date Kiel Shaffer MD PCP - General 05/26/09 04/27/15 Kiel Shaffer MD PCP - General Internal Medicine 04/28/15 05/05/15 Philly Vela DO PCP - General Internal Medicine 05/06/15 08/27/15 Kiel Shaffer MD PCP - General Internal Medicine 08/28/15 documented as of this encounter
--- OUTSIDE RECORDS SUMMARY | 2024-11-16 12:46 | XMS_ITS | Encounter Summary ---
Author Organization [facility] Address [address] [place] [address] Care Team Providers Care Supervisor Research Kennel Name Role Phone Name, Kiel BAILEY Primary Care Provider Unavailabl e Name, Kiel BAILEY Primary Care Provider Unavailabl e Philly Vela DO Primary Care Pro vider Unavailable Name, Kiel BAILEY Primary Care Provider Unavailabl e Encounter Details Date Type Department Care Team Description 12/04/2014 Hospital Medical Records [address] [place] [address] Josh Martinez NP [address] [place] [address] Social History Tobacco Use Types Packs/Day Years [...] filedocumented in this encounter Care Teams Supervisor Research Kennel Relationship Specialty Start Date End Date Kiel Shaffer MD PCP - General 05/26/09 04/27/15 Kiel Shaffer MD PCP - General Internal Medicine 04/28/15 05/05/15 Philly Vela DO PCP - General Internal Medicine 05/06/15 08/27/15 Kiel Shaffer MD PCP - General Internal Medicine 08/28/15 documented as of this encounter
--- OUTSIDE RECORDS SUMMARY | 2024-11-16 12:46 | XMS_ITS | Encounter Summary ---
[facility] Address [address] [place] [address] Care Team Providers Care Airplane Patroller Name Role Phone Name, Kiel BAILEY Primary Care Provider Unavailabl e Name, Kiel BAILEY Primary Care Provider Unavailabl e Philly Vela DO Primary Care Pro vider Unavailable Name, Kiel BAILEY Primary Care Provider Unavailabl e Encounter Details Date Type Department Care Team Description 08/13/2011 Hospital Medical Records [address] [place] [address] Marcia Wan MD Social History Tobacco Use [...] on filedocumented in this encounter Care Teams Airplane Patroller Relationship Specialty Start Date End Date Kiel Shaffer MD PCP - General 05/26/09 04/27/15 Kiel Shaffer MD PCP - General Internal Medicine 04/28/15 05/05/15 Philly Vela DO PCP - General Internal Medicine 05/06/15 08/27/15 Kiel Shaffer MD PCP - General Internal Medicine 08/28/15 documented as of this encounter
--- OUTSIDE RECORDS SUMMARY | 2024-11-16 12:46 | XMS_ITS | Encounter Summary ---
Author [facility] Address [address] [place] [address] Care Team Providers Care Commercial Installer Name Role Phone Name, Kiel BAILEY Primary Care Provider Unavailabl e Name, Kiel BAILEY Primary Care Provider Unavailabl e Philly Vela DO Primary Care Pro vider Unavailable Name, Kiel BAILEY Primary Care Provider Unavailabl e Encounter Details Date Type Department Care Team Description 12/17/2013 Hospital Medical Records [address] [place] [address] Social History Tobacco Use Types Packs/Day Years [...] on filedocumented in this encounter Care Teams Commercial Installer Relationship Specialty Start Date End Date Kiel Shaffer MD PCP - General 05/26/09 04/27/15 Kiel Shaffer MD PCP - General Internal Medicine 04/28/15 05/05/15 Philly Vela DO PCP - General Internal Medicine 05/06/15 08/27/15 Kiel Shaffer MD PCP - General Internal Medicine 08/28/15 documented as of this encounter
--- OUTSIDE RECORDS SUMMARY | 2024-11-16 12:46 | XMS_ITS | Clinical Summary ---
Author Organization [facility] Address [address] [place] [address] Care Team Providers Care Coach Driver Name Role Phone Name, Kiel BAILEY [...] just unsure what to do Educational Resources [employer] [employer] (www.diabetes.org) Centers for Disease Control [...] leg 09/21 Overview: The patient follows with [facility] and is treated with [...] Hx Relation Name Status Comments Brother 1 [place] Brother 2 Alive 6 brothers are diabetic [...] HEPATITIS C SCREENING Completed 10/10/2013 Care Teams Coach Driver Relationship Specialty Start Date End Date Name, MD Kiel PCP - General Internal Medicine 08/28/15
--- OUTSIDE RECORDS SUMMARY | 2024-11-16 12:46 | XMS_ITS | Encounter Summary ---
[facility] Address [address] [place] [address] Care Team Providers Care Electrical Maintenance Mechanic Name Role Phone Name, Kiel BAILEY Primary Care Provider Unavailabl e Name, Kiel BAILEY Primary Care Provider Unavailabl e Philly Vela DO Primary Care Pro vider Unavailable Name, Kiel BAILEY Primary Care Provider Unavailabl e Encounter Details Date Type Department Care Team Description 11/17/2013 Transfer Records Medical Records [address] [place] [address] Abstract, Provider Social History Tobacco Use Types [...] on filedocumented in this encounter Care Teams Electrical Maintenance Mechanic Relationship Specialty Start Date End Date Kiel Shaffer MD PCP - General 05/26/09 04/27/15 Kiel Shaffer MD PCP - General Internal Medicine 04/28/15 05/05/15 Philly Vela DO PCP - General Internal Medicine 05/06/15 08/27/15 Kiel Shaffer MD PCP - General Internal Medicine 08/28/15 documented as of this encounter
--- OUTSIDE RECORDS SUMMARY | 2024-11-16 12:46 | XMS_ITS | Encounter Summary ---
Author Organization [facility] Address [address] [place] [address] Care Team Providers Care Construction Recruiter Name Role Phone Name, Kiel BAILEY Primary Care Provider Unavailabl e Name, Kile BAILEY Primary Care Provider Unavailabl e Philly Vela DO Primary Care Pro vider Unavailable Name, Kiel BAILEY Primary Care Provider Unavailabl e Reason for Visit * Reason Onset Date Comments Follow-up Appt Unavailable 08/19/2011 Encounter Details Date Type Department Care Team Description 08/19/2011 Telephone Adult Medicine [address] [address] Name, MD Kiel Follow-up Appt Unavailable Social [...] Symptoms patient is presenting: patient admitted to [facility] 08/11-08/17 For sob and lung infection/she would like to see dr santiago only How long has patient had these symptoms?: admitted 1week PCP: Kiel Santiago MD Payor: [facility] [employer] FFS Plan: FFS HMO $0 [place] [id number] Product Type: MEDICAID RISK documented in this encounter Plan of Treatment Not on file documented as of this encounter Visit Diagnoses Not on filedocumented in this encounter Care Teams Construction Recruiter Relationship Specialty Start Date End Date Kiel Santiago MD PCP - General 05/26/09 04/27/15 Kiel Santiago MD PCP - General Internal Medicine 04/28/15 05/05/15 Philly Vela DO PCP - General Internal Medicine 05/06/15 08/27/15 Kiel Santiago MD PCP - General Internal Medicine 08/28/15 documented as of this encounter
--- OUTSIDE RECORDS SUMMARY | 2024-11-16 12:46 | XMS_ITS | Encounter Summary ---
[facility] Address [address] [place] [address] Care Team Providers Care Music Department Chair Name Role Phone Name, Kiel BAILEY Primary Care Provider Unavailabl e Name, Kiel BAILEY Primary Care Provider Unavailabl e Philly Vela DO Primary Care Pro vider Unavailable Name, Kiel BAILEY Primary Care Provider Unavailabl e Encounter Details Date Type Department Care Team Description 12/12/2012 Director Of Trauma Report Medical Records [address] [place] [address] Zack Castro Social History Tobacco Use Types [...] on filedocumented in this encounter Care Teams Music Department Chair Relationship Specialty Start Date End Date Kiel Shaffer MD PCP - General 05/26/09 04/27/15 Kiel Shaffer MD PCP - General Internal Medicine 04/28/15 05/05/15 Philly Vela DO PCP - General Internal Medicine 05/06/15 08/27/15 Kiel Shaffer MD PCP - General Internal Medicine 08/28/15 documented as of this encounter
--- OUTSIDE RECORDS SUMMARY | 2024-11-16 12:46 | XMS_ITS | Encounter Summary ---
[facility] Address [address] [place] [address] Care Team Providers Care Meat And Seafood Manager Name Role Phone Name, Kiel BAILEY Primary Care Provider Unavailabl e Name, Kiel BAILEY Primary Care Provider Unavailabl e Philly Vela DO Primary Care Pro vider Unavailable Name, Kiel BAILEY Primary Care Provider Unavailabl e Encounter Details Date Type Department Care Team Description 12/11/2009 Blind Teacher Report Medical Records [address] [place] [address] Gonzalo Valles MD Social History Tobacco Use [...] filedocumented in this encounter Care Teams Meat And Seafood Manager Relationship Specialty Start Date End Date Kiel Shaffer MD PCP - General 05/26/09 04/27/15 Kiel Shaffer MD PCP - General Internal Medicine 04/28/15 05/05/15 Philly Vela DO PCP - General Internal Medicine 05/06/15 08/27/15 Kiel Shaffer MD PCP - General Internal Medicine 08/28/15 documented as of this encounter
--- OUTSIDE RECORDS SUMMARY | 2024-11-16 12:46 | XMS_ITS | Encounter Summary ---
[facility] Address [address] [place] [address] Care Team Providers Care Utilization Management Rn Name Role Phone Name, Kiel BAILEY Primary Care Provider Unavailabl e Name, Kiel BAILEY Primary Care Provider Unavailabl e Philly Vela DO Primary Care Pro vider Unavailable Name, Kiel BAILEY Primary Care Provider Unavailabl e Encounter Details Date Type Department Care Team Description 11/06/2010 Juke Box Servicer Report Medical Records [address] [place] [address] Quinton Luther Social History Tobacco Use Types [...] on filedocumented in this encounter Care Teams Utilization Management Rn Relationship Specialty Start Date End Date Kiel Shaffer MD PCP - General 05/26/09 04/27/15 Kiel Shaffer MD PCP - General Internal Medicine 04/28/15 05/05/15 Philly Vela DO PCP - General Internal Medicine 05/06/15 08/27/15 Kiel Shaffer MD PCP - General Internal Medicine 08/28/15 documented as of this encounter
--- OUTSIDE RECORDS SUMMARY | 2024-11-16 12:46 | XMS_ITS | Encounter Summary ---
Author Organization [facility] Address [address] [place] [address] Care Team Providers Care Clasp Machine Operator Name Role Phone Name, Kiel BAILEY Primary Care Provider Unavailabl e Name, Kiel BAILEY Primary Care Provider Unavailabl e Philly Vela DO Primary Care Pro vider Unavailable Name, Kiel BAILEY Primary Care Provider Unavailabl e Encounter Details Date Type Department Care Team Description 11/12/2009 Controlled Substance Contract with Plan Medical Records [address] [place] [address] Abstract, Provider Social History Tobacco Use Types [...] on filedocumented in this encounter Care Teams Clasp Machine Operator Relationship Specialty Start Date End Date Kiel Shaffer MD PCP - General 05/26/09 04/27/15 Kiel Shaffer MD PCP - General Internal Medicine 04/28/15 05/05/15 Philly Vela DO PCP - General Internal Medicine 05/06/15 08/27/15 Kiel Shaffer MD PCP - General Internal Medicine 08/28/15 documented as of this encounter
--- OUTSIDE RECORDS SUMMARY | 2024-11-16 12:46 | XMS_ITS | Encounter Summary ---
[facility] Address [address] [place] [address] Care Team Providers Care Luggage Maker Name Role Phone Name, Kiel BAILEY Primary Care Provider Unavailabl e Name, Kiel BAILEY Primary Care Provider Unavailabl e Philly Vela DO Primary Care Pro vider Unavailable Name, Kiel BAILEY Primary Care Provider Unavailabl e Encounter Details Date Type Department Care Team Description 09/20/2011 Software Developer Manager Report Medical Records [address] [place] [address] Edy Lal MD Social History Tobacco Use [...] on filedocumented in this encounter Care Teams Luggage Maker Relationship Specialty Start Date End Date Kiel Shaffer MD PCP - General 05/26/09 04/27/15 Kiel Shaffer MD PCP - General Internal Medicine 04/28/15 05/05/15 Philly Vela DO PCP - General Internal Medicine 05/06/15 08/27/15 Kiel Shaffer MD PCP - General Internal Medicine 08/28/15 documented as of this encounter
--- OUTSIDE RECORDS SUMMARY | 2024-11-16 12:46 | XMS_ITS | Encounter Summary ---
[facility] Address [address] [place] [address] Care Team Providers Care Senior Environmental Engineer Name Role Phone Name, Kiel BAILEY Primary Care Provider Unavailabl e Name, Kiel BAILEY Primary Care Provider Unavailabl e Philly Vela DO Primary Care Pro vider Unavailable Name, Kiel BAILEY Primary Care Provider Unavailabl e Encounter Details Date Type Department Care Team Description 10/15/2010 Hospital Medical Records [address] [place] [address] Juan M Moreland Np Social History Tobacco [...] filedocumented in this encounter Care Teams Senior Environmental Engineer Relationship Specialty Start Date End Date Kiel Shaffer MD PCP - General 05/26/09 04/27/15 Kiel Shaffer MD PCP - General Internal Medicine 04/28/15 05/05/15 Philly Vela DO PCP - General Internal Medicine 05/06/15 08/27/15 Kiel Shaffer MD PCP - General Internal Medicine 08/28/15 documented as of this encounter
--- OUTSIDE RECORDS SUMMARY | 2024-11-16 12:46 | XMS_ITS | Encounter Summary ---
Author Organization [facility] Address [address] [place] [address] Phone Care Team Providers Care Coroner Name Role Phone Unavailable Primary Care Provider Unavailabl e Encounter Details Date Type Department Care Team (Latest Contact Info) Description 01/04/2020 Ancillary Orders [facility] [address] [place] [address] [place] [address] Bright Jesus, DO [address] [place] [phone] Chest pain, unspecified type Social History Tobacco [...] It is not the complete legal health record.[facility]
--- OUTSIDE RECORDS SUMMARY | 2024-11-16 12:46 | XMS_ITS | Encounter Summary ---
Author Organization [facility] Address [address] [place] [address] Phone Care Team Providers Care Refrigeration Houseman Name Role Phone Unavailable Primary Care Provider Unavailabl e Encounter Details Date Type Department Care Team (Late st Contact Info) Description 01/04/2020 Procedure Pass [facility] [address] [place] [address] [place], [place] [phone] Social History Tobacco Use Types Packs/Day Years [...] It is not the complete legal health record.[facility]
--- OUTSIDE RECORDS SUMMARY | 2024-11-16 12:46 | XMS_ITS | Encounter Summary ---
Author Organization [facility] Address [address] [place] [address] Care Team Providers Care Workers Compensation Coordinator Name Role Phone Name, Kiel BAILEY Primary Care Provider Unavailabl e Encounter Details Date Type Department Care Team Description 01/07/2021 Hospital Medical Records [address] [place] [id number] [place] [address] Social History Tobacco Use Types Packs/Day Years [...] on filedocumented in this encounter Care Teams Workers Compensation Coordinator Relationship Specialty Start Date End Date Name, MD Kiel PCP - General Internal Medicine 08/28/15 documented as of this encounter
--- OUTSIDE RECORDS SUMMARY | 2024-11-16 12:46 | XMS_ITS | Encounter Summary ---
[facility] Address [address] [place] [address] Care Team Providers Care Applications Manager Name Role Phone Name, Kiel BAILEY Primary Care Provider Unavailabl e Name, Kiel BAILEY Primary Care Provider Unavailabl e Philly Vela DO Primary Care Pro vider Unavailable Name, Kiel BAILEY Primary Care Provider Unavailabl e Encounter Details Date Type Department Care Team Description 12/08/2009 Night Triage Doc Medical Records [address] [place] [address] Abstract, Provider Social History Tobacco Use Types [...] on filedocumented in this encounter Care Teams Applications Manager Relationship Specialty Start Date End Date Kiel Shaffer MD PCP - General 05/26/09 04/27/15 Kiel Shaffer MD PCP - General Internal Medicine 04/28/15 05/05/15 Philly Vela DO PCP - General Internal Medicine 05/06/15 08/27/15 Kiel Shaffer MD PCP - General Internal Medicine 08/28/15 documented as of this encounter
--- OUTSIDE RECORDS SUMMARY | 2024-11-16 12:46 | XMS_ITS | Encounter Summary ---
[facility] Address [address] [place] [address] Care Team Providers Care Hydroelectric Plant Maintainer Name Role Phone Name, Kiel BAILEY Primary Care Provider Unavailabl e Name, Kiel BAILEY Primary Care Provider Unavailabl e Philly Vela DO Primary Care Pro vider Unavailable Name, Kiel BAILEY Primary Care Provider Unavailabl e Encounter Details Date Type Department Care Team Description 10/30/2011 Hospital Medical Records [address] [place] [address] Nadine Laboy Social History Tobacco Use Types [...] on filedocumented in this encounter Care Teams Hydroelectric Plant Maintainer Relationship Specialty Start Date End Date Kiel Shaffer MD PCP - General 05/26/09 04/27/15 Kiel Shaffer MD PCP - General Internal Medicine 04/28/15 05/05/15 Philly Vela DO PCP - General Internal Medicine 05/06/15 08/27/15 Kiel Shaffer MD PCP - General Internal Medicine 08/28/15 documented as of this encounter
--- OUTSIDE RECORDS SUMMARY | 2024-11-16 12:46 | XMS_ITS | Clinical Summary ---
Author Organization [facility] Address [address] [place] [address] Care Team Providers Care Credit Correspondence Clerk Name Role Phone Name, Kiel BAILEY Primary Care Provider [phone] Allergies Active Allergy Reactions Criticality Noted Date [...] age to complete this topic Care Teams Credit Correspondence Clerk Relationship Specialty Start Date End Date Name, MD Kiel [address] [facility] [place] [address] [place] [address] PCP - General Internal Medicine 04/17/18
--- OUTSIDE RECORDS SUMMARY | 2024-11-16 12:46 | XMS_ITS | Encounter Summary ---
[facility] Organization [facility] Address [address] [place] [address] Care Team Providers Care Counting Machine Operator Name Role Phone Name, Kiel BAILEY Primary Care Provider Unavailabl e Name, Kiel BAILEY Primary Care Provider Unavailabl e Philly Vela DO Primary Care Pro vider Unavailable Name, Kiel BAILEY Primary Care Provider Unavailabl e Encounter Details Date Type Department Care Team Description 02/11/2011 Cover Making Machine Operator Report Medical Records [address] [place] [address] Quinton Luther Social History Tobacco Use Types [...] on filedocumented in this encounter Care Teams Counting Machine Operator Relationship Specialty Start Date End Date Kiel Shaffer MD PCP - General 05/26/09 04/27/15 Kiel Shaffer MD PCP - General Internal Medicine 04/28/15 05/05/15 Philly Vela DO PCP - General Internal Medicine 05/06/15 08/27/15 Kiel Shaffer MD PCP - General Internal Medicine 08/28/15 documented as of this encounter
--- OUTSIDE RECORDS SUMMARY | 2024-11-16 12:46 | XMS_ITS | Encounter Summary ---
[facility] Address [address] [place] [address] Care Team Providers Care Industrial Machine Assembler Name Role Phone Name, Kiel BAILEY Primary Care Provider Unavailabl e Encounter Details Date Type Department Care Team Description 07/15/2018 Hospital Medical Records [address] [place] [address] Ramez Santacruz MD [address] [place] [phone] Social History Tobacco Use Types Packs/Day Years [...] filedocumented in this encounter Care Teams Industrial Machine Assembler Relationship Specialty Start Date End Date Name, MD Kiel PCP - General Internal Medicine 08/28/15 documented as of this encounter
--- OUTSIDE RECORDS SUMMARY | 2024-11-16 12:46 | XMS_ITS | Encounter Summary ---
[facility] Address [address] [place] [address] Care Team Providers Care Mounter Automatic Name Role Phone Name, Kiel BAILEY Primary Care Provider Unavailabl e Name, Kiel BAILEY Primary Care Provider Unavailabl e Philly Vela DO Primary Care Pro vider Unavailable Name, Kiel BAILEY Primary Care Provider Unavailabl e Encounter Details Date Type Department Care Team Description 10/03/2014 Hospital Medical Records [address] [place] [address] Randall Garcia MD Social History Tobacco Use [...] on filedocumented in this encounter Care Teams Mounter Automatic Relationship Specialty Start Date End Date Kiel Shaffer MD PCP - General 05/26/09 04/27/15 Kiel Shaffer MD PCP - General Internal Medicine 04/28/15 05/05/15 Philly Vela DO PCP - General Internal Medicine 05/06/15 08/27/15 Kiel Shaffer MD PCP - General Internal Medicine 08/28/15 documented as of this encounter
--- OUTSIDE RECORDS SUMMARY | 2024-11-16 12:46 | XMS_ITS | Encounter Summary ---
[facility] Organization [facility] Address [address] [place] [address] Care Team Providers Care Clinic Md Associate Name Role Phone Name, Kiel BAILEY Primary Care Provider Unavailabl e Name, Kiel BAILEY Primary Care Provider Unavailabl e Philly Vela DO Primary Care Pro vider Unavailable Name, Kiel BAILEY Primary Care Provider Unavailabl e Encounter Details Date Type Department Care Team Description 07/31/2013 Cell Installer Report Medical Records [address] [place] [address] Quinton Luther Social History Tobacco Use Types [...] on filedocumented in this encounter Care Teams Clinic Md Associate Relationship Specialty Start Date End Date Kiel Shaffer MD PCP - General 05/26/09 04/27/15 Kiel Shaffer MD PCP - General Internal Medicine 04/28/15 05/05/15 Philly Vela DO PCP - General Internal Medicine 05/06/15 08/27/15 Kiel Shaffer MD PCP - General Internal Medicine 08/28/15 documented as of this encounter
--- OUTSIDE RECORDS SUMMARY | 2024-11-16 12:46 | XMS_ITS | Encounter Summary ---
Author Organization [facility] Address [address] [place] [address] Care Team Providers Care Middle School History Teacher Name Role Phone Name, Kiel BAILEY Primary Care Provider Unavailabl e Name, Kiel BAILEY Primary Care Provider Unavailabl e Philly Vela DO Primary Care Pro vider Unavailable Name, Kiel BAILEY Primary Care Provider Unavailabl e Encounter Details Date Type Department Care Team Description 03/06/2013 Release of Information Medical Records [address] [place] [address] Abstract, Provider Social History Tobacco Use Types [...] on filedocumented in this encounter Care Teams Middle School History Teacher Relationship Specialty Start Date End Date Kiel Shaffer MD PCP - General 05/26/09 04/27/15 Kiel Shaffer MD PCP - General Internal Medicine 04/28/15 05/05/15 Philly Vela DO PCP - General Internal Medicine 05/06/15 08/27/15 Kiel Shaffer MD PCP - General Internal Medicine 08/28/15 documented as of this encounter
== END 2024-11-16 11:02 | disposition home or self-care (01) ==
LOC: HO.HOSX 11:01
DX: S52.514A Nondisplaced fracture of right radial styloid process, initial encounter for closed fracture (principal); X58.XXXA Exposure to other specified factors, initial encounter
CPT/HCPCS: 73110; 99212

== ENCOUNTER 2024-11-16 11:28 | Outpatient (AMB) | payer MEDICAID, SELFPAY ==
--- OUTSIDE RECORDS SUMMARY | 2024-11-15 11:30 | XMS_ITS | Encounter Summary ---
Author Organization [employer] Address [address] [facility] 7t [place] [address] Care Team Providers Care Pattern Finisher Name Role Phone Name, Kiel BAILEY Primary Care Provider [phone] Katlyn Rodriguez PharmD Unavailable [phone] Ania Spencer Unavailable Opal Leyva Unavailable [phone] Reason for Visit * Reason Comments MANAGER COMMUNICATION Renewal Encounter Details Date Type Department Care Team (Latest Contact Info) Description 11/15/2024 11:30 AM EDT Clinical Support [facility] MEDICINE [address] [place] [address] Opal Steiner RN Long-term current use of opiate analgesic (Primary Dx) Social History Tobacco Use Types [...] of this encounter Progress Notes * Opal Steiner RN - 11/15/2024 11:30 AM EDT SUBJECTIVE: Sarita Puga is a 59 y.o. year old female who presents for MANAGER COMMUNICATION Renewal Preferred language for medical information: Arabic Interpreted needed: No. Pt was accompanied by her daughter/DIRECTOR OF PROGRAM MANAGEMENT Sarita who assisted with translation as needed. Sarita Puga does report adherence to Oxycodone 10 mg, take 1 tablet every 8 hours PRN, last refilled 10/19/2024. Pt states she takes 3-4 doses a day. She wakes up in middle of night at times with increased pain and will take an additional dose at that time. The patient last took Oxycodone on: 11/15/2024 Medication is: 100% % effective at alleviating pain. Right hand/wrist in short cast. Fingers warm to touch, denies numbness, able to move fingers without issues. Pt requesting prescription for sock assistive on/off device. OBJECTIVE: BELT WEAVER checked: 11/15/2024 Pill count completed for Oxycodone , count today is 6 , anticipated count should be 2, this is as expected. Vital Signs Pain Score: 10-Worst pain ever Pain Loc: Hand Pain Education: Yes Additional pain site: right hand fx/casted, back, left arm/hand Last PCP visit: 08/20/2024 BPI completed on: 11/15/2024 , pain severity score: 8, activity interference score: 6 BPI completed on: 11/29/2023 , pain severity score: 7, activity interference score: 5 Controlled substance agreement signed: Controlled Substance Agreement 11/15/2024 Controlled substance agreement: signed and up to date MANAGER COMMUNICATION Tier: 2 Current Medications[1] Smoking status: Yes, 2 packs of cigarettes daily. Pt would like referral for smoking cessation. ETOH use: Yes, 6 beers every weekend Illicit substances: Denies Marijuana use: Yes, smokes daily , Marijuana card: No , Marijuana Acquired from: Dispensary Lab Results Component Value Date POCTHC Positive 11/15/2024 POCCOCAINEUR Negative 11/15/2024 POCOPIATEUR Negative 11/15/2024 DOAUR Negative 11/15/2024 POCAMPHETAMI Negative 11/15/2024 POCBENZODIUR Negative 11/15/2024 POCBARBSCRN Negative 11/15/2024 POCMETHADOUR Negative 11/15/2024 POCBUPSCRN Negative 11/15/2024 POCTCAUR Negative 11/15/2024 POCMDMAUR Negative 11/15/2024 POCOXYCODONE Positive 11/15/2024 POCPHENCYCUR Negative 11/15/2024 PROPOXUR Negative 11/15/2024 FENTANYLURIN Negative 11/15/2024 ASSESSMENT: Encounter Diagnosis Name Primary? Long-term current use of opiate analgesic Yes PLAN: Information on pain group given: Yes Information on acupuncture given: Yes Narcan education provided: Yes Narcan prescription: inactive- refill request submitted to provider Will update PCP with BPI scoring, request narcan renewal, oxycodone refill, prescription for sock on/off assistive device and patient would like referral for smoking cessation. Controlled substance agreement reviewed and signed. A copy was given to the patient. Sarita [place] continue taking medications as prescribed and has verbalized understanding of care plan. Future Appointments Date Time Provider Department Center 11/27/2024 10:30 AM Katlyn Rodriguez PharmD MEDICINE [facility] 01/28/2025 11:00 AM Kiel Shaffer MD MEDICINE [facility] 02/04/2025 11:30 AM Opal Steiner RN MEDICINE [facility] Opal Steiner RN [1] Current Outpatient Medications: naloxone (Narcan) 4 mg/0.1 mL nasal spray, Administer 0.1 mL into affected nostril(s)., Disp: , Rfl: oxyCODONE (Roxicodone) 10 MG immediate release tablet, Take 1 tablet (10 mg) by mouth 3 times dailyfor 28 days. Do not start before October 19, 2024., Disp: 84 tablet, Rfl: 0 acetaminophen (Tylenol 8 Hour) 650 MG ER tablet, TAKE 1 TABLET BY MOUTH EVERY 8 HOURS NEEDED FORMILD PAIN DO NOT BREAK, CRUSH, DISSOLVE OR CHEW, Disp: 90 tablet, Rfl: 1 Advair HFA 115-21 MCG/ACT inhaler, , Disp: , Rfl: albuterol 108 (90 Base) MCG/ACT inhaler, Inhale 2 puffs Every 4-6 hours as needed for wheezing., Disp: 18 g, Rfl: 5 Alcohol Swabs (Alcohol Prep) 70 % pads, USE DIRECTED TWICE DAILY, Disp: 100 each, Rfl: 5 aspirin 81 MG chewable tablet, Chew 1 tablet (81 mg) in the evening., Disp: 90 tablet, Rfl: 3 Blood Glucose Monitoring Suppl (FreeStyle Lite) device, Inject 1 each under the skin 2 times daily.Use to test blood sugar as directed, Disp: 1 each, Rfl: 0 Blood Pressure Monitor kit, Use to check blood pressure daily, Disp: 1 kit, Rfl: 0 Calcium Carb-Cholecalciferol (Calcium + Vitamin D3) 600-5 MG-MCG tablet, Take 1 tablet by mouth 2 times daily., Disp: 180 tablet, Rfl: 3 cetirizine (ZyrTEC) 10 MG tablet, TAKE 1 TABLET BY MOUTH EVERY MORNING, Disp: 90 tablet, Rfl: 1 cloNIDine (Catapres) 0.1 MG tablet, TAKE 1 TABLET BY MOUTH AT BEDTIME, Disp: 30 tablet, Rfl: 1 ezetimibe (Zetia) 10 MG tablet, TAKE 1 TABLET BY MOUTH EVERY MORNING, Disp: 30 tablet, Rfl: 11 famotidine (Pepcid) 20 MG tablet, TAKE 1 TABLET BY MOUTH TWICE DAILY IN THE MORNING AND IN THE EVENING, Disp: 180 tablet, Rfl: 0 furosemide (Lasix) 20 MG tablet, Take 20 mg by mouth in the morning., Disp: , Rfl: gabapentin (Neurontin) 800 MG tablet, Take 1 tablet (800 mg) by mouth 3 times daily., Disp: 90 tablet, Rfl: 11 glucose blood (FREESTYLE LITE) test strip, Use to test blood sugar 2 times daily, Disp: 50 strip, Rfl: 11 Icosapent Ethyl (Vascepa) 1 g capsule, Take 2 capsules (2 g) by mouth with breakfast and with evening meal., Disp: 360 capsule, Rfl: 3 insulin glargine (Lantus SoloStar) 100 UNIT/ML pen, Inject 44 Units under the skin at bedtime. Increase, as directed, to max of 50 units daily., Disp: 15 mL, Rfl: 5 ipratropium-albuterol (Combivent Respimat) 20-100 MCG/ACT inhaler, Inhale 1 puff every 6 (six) hours. inhale 1 puff by inhalation route 4 times every day ; may take additional puffs as needed not to exceed 6 puffs in 24hrs, Disp: , Rfl: lidocaine (Lidoderm) 5 % patch, APPLY 1 PATCH TOPICALLY TO SKIN, LEAVE ON FOR 12 HOURS AND OFF FOR 12 HOURS DIRECTED NEEDED FOR MILD PAIN, Disp: 30 patch, Rfl: 3 lidocaine (Lidoderm) 5 % patch, Apply 1 patch topically Once per day. Remove & discard patch within 12 hours or as directed by MD., Disp: 30 patch, Rfl: 1 losartan (Cozaar) 50 MG tablet, TAKE 1 TABLET BY MOUTH EVERY MORNING, Disp: 90 tablet, Rfl: 3 meloxicam (Mobic) 7.5 MG tablet, TAKE 1 TABLET BY MOUTH ONCE DAILY, Disp: 30 tablet, Rfl: 11 metFORMIN XR (Glucophage-XR) 500 MG 24 hr tablet, Take 1 tablet (500 mg) by mouth at bedtime., Disp: 90 tablet, Rfl: 3 metoprolol succinate XL (Toprol-XL) 25 MG 24 hr tablet, Take 1 tablet (25 mg) by mouth at bedtime. Do not crush or chew., Disp: 90 tablet, Rfl: 3 Misc. Devices (Ezy Dose Pill Cutter) misc, Use to cut tablets in half, Disp: , Rfl: montelukast (Singulair) 10 MG tablet, Take 1 tablet (10 mg) by mouth at bedtime., Disp: 90 tablet, Rfl: 3 nitroglycerin (Nitrostat) 0.4 MG SL tablet, , Disp: , Rfl: OXcarbazepine (Trileptal) 150 MG tablet, Take 150 mg by mouth before breakfast. Has additional RX for 300 mg, 1.5 tabs at bedtime, Disp: , Rfl: OXcarbazepine (Trileptal) 300 MG tablet, Take 1.5 tablets (450 mg) by mouth at bedtime., Disp: 45 tablet, Rfl: 3 PARoxetine (Paxil) 40 MG tablet, TAKE 1 TABLET BY MOUTH AT BEDTIME, Disp: 30 tablet, Rfl: 0 pyridoxine (Vitamin B-6) 100 MG tablet, Take 100 mg by mouth in the morning., Disp: , Rfl: rosuvastatin (Crestor) 40 MG tablet, Take 1 tablet (40 mg) by mouth Once per day., Disp: 90 tablet,Rfl: 1 TechLite Pen Malo 32G X 4 MM misc, USE DIRECTED FOUR TIMES DAILY, Disp: 100 each, Rfl: 11 Tirzepatide (Mounjaro) 15 MG/0.5ML solution auto-injector, Inject 15 mg under the skin 1 (one) timeper week., Disp: 2 mL, Rfl: 11 traZODone (Desyrel) 100 MG tablet, Take 1 tablet (100 mg) by mouth if needed at bedtime for sleep.,Disp: 30 tablet, Rfl: 3 TRUEplus Lancets 33G misc, Use to test blood sugar twice daily as directed, Disp: 100 each, Rfl: 11 documented in this encounter Plan of Treatment Upcoming Encounters Date Type Department Care Team (Late st Contact Info) Description 11/27/2024 10:30 AM EDT Medication Management [facility] [address] [place] [address] Katlyn Rodriguez, AngieD [address] [place] [address] 01/28/2025 11:00 AM EST Office Visit [facility] [address] [place] [address] [phone] Name, MD Kiel [address] [place] [phone] 02/04/2025 11:30 AM EST Clinical Support [facility] [address] [place] [address] Opal Steiner, RN documented as of this [...] Comments POCT KEELEY-14 URINE DRUG SCREEN Routine 11/15/2024 11:43 AM EDT Long-term current use of opiate analgesic documented in this encounter Results * POCT KEELEY-14 Urine Drug Screen (11/15/2024 11:43 AM EDT) THC Positive Negative Cocaine Screen, [...] obtained by clean catch procedure / Unknown 11/15/2024 11:43 AM EDT Narrative Opal Steiner RN - 11/15/2024 11:43 AM EDT UTOX cup Lot#[id number] Exp. 11/27/25 Internal Pass Control us Kiel Name POINT OF CARE TEST ENTER/EDIT OR DERABLES Final Result documented in this encounter Visit Diagnoses Diagnosis Long-term current use of opiate analgesic- Primary Encounter for long-term (current) use of other medications documented in this encounter Additional Health Concerns Assessment Noted Time PHQ-9 Depression Total Score: 7 09/05/19 25 11:46 AM EDT documented as of this encounter Care Teams Pattern Finisher Relationship Specialty Start Date End Date Name, MD Kiel [address] [place], [place] [phone] PCP - General Family Medicine 07/15/15 Katlyn Rodriguez PharmD [address] [place] [address] Pharmacist Internal Medicine 10/08/22 Ania Spencer 08/20/24 Opal Leyva Registered Nurse 10/29/24 Marta Ovalle Rags LaborerForest Resources Professor 05/25/23 documented as of this encounter
[2024-11-16 11:34] VITALS: BMI 41.4
--- NOTE | 2024-11-16 11:34 | A.OFFVIS_ITS ---
Vital Signs 11/16/24 11:34 Height 5 ft 3 in Weight 234 lb BMI 41.4 Intake Visit Reasons: FC-RT hand radial styloid fx s/p fall 10/06/24 Intake Note: Sarita is a 59 year old right hand dominant female who presents today for follow up status post Right Radial Styloid Fracture and Tenderness of Anatomical Snuffbox DOI: 10/06/2024. She was last seen 11/05/24 where she was placed in a new thumb spica cast. Patient reports today she has numbness on the volar aspect of the hand. She is taking Oxycodone with some relief. Earth Science Technical Officer Required: No Allergies penicillin G (Penicillin G) Allergy (Mild, Verified 11/16/24 11:49) SWELLING barium sulfate (ORAL CONTRAST) Allergy (Unknown, Verified 11/16/24 11:49) HIVES cephalexin Allergy (Unknown, Verified 11/16/24 11:49) Unknown HPI HPI FC-RT hand radial styloid fx s/p fall 10/06/24: Details: Sarita is a 59 year old right hand dominant female who presents today for follow up status post Right Radial Styloid Fracture and Tenderness of Anatomical Snuffbox DOI: 10/06/2024. She was last seen 11/05/24 where she was placed in a new thumb spica cast. Patient reports today she has numbness on the volar aspect of the hand. She is taking Oxycodone with some relief. [facility] Medical History COPD (chronic obstructive pulmonary disease) Diabetes mellitus Brain lesion Reactive airway disease Coronary artery disease Insulin dependent type 2 diabetes mellitus Exposure to rabies Lymphoma Restrictive lung disease secondary to obesity Nocturnal hypoxemia DRE (obstructive sleep apnea) Cough Nicotine dependence, cigarettes, uncomplicated Allergic rhinitis Morbid obesity Hyperlipidemia GERD (gastroesophageal reflux disease) Tubular adenoma Chronic idiopathic constipation IBS (irritable bowel syndrome) Back pain Depression Surgical History History of total right knee replacement (TKR) History of appendectomy (~1978) History of (~1986) History of hysterectomy (~1995) History of lithotripsy (~2018) History of carpal tunnel surgery of right wrist (~2020) History of colonoscopy History of esophagogastroduodenoscopy (EGD) Family History Mother Diabetes Heart muscle disorder caused by another medical condition Father Diabetes Epilepsy Sister No problems noted. Sister No problems noted. Sister No problems noted. Sister No problems noted. Sister No problems noted. Brother No problems noted. Brother No problems noted. Brother No problems noted. Brother No problems noted. Brother No problems noted. Brother No problems noted. Daughter No problems noted. Daughter No problems noted. Son No problems noted. Son No problems noted. Son No problems noted. Social History Household Members: Other Household Members Other:: grandson Housing: Apartment Are you a primary patient care associate to a significant other at home: No Do you presently have visiting nurse or other home services: No Alcohol intake: current Alcohol intake frequency: a few times a week Patient Tobacco Use Status: Current everyday Tobacco user Tobacco use type: Cigarette Cigarette Packs Per Day: 2 Cigarettes Per Day: 40.0 Years Smoked: (onset 13yo, x 42yrs, max 2ppd, now 1/2ppd - 30PYH) e-Cigarette/Vaping Use: Never Used Second Hand Smoke Exposure: No Substance Use Type: Marijuana service: No Current occupational status: disabled Current occupation: rt handed Review of Systems Const All systems reviewed & are unremarkable except as noted in HPI and below Physical Exam Vital Signs: BMI result Body Mass Index 41.4 Extrem Other: Patient is alert, oriented, and in no acute distress. Neuro: Normal sensation of the tips of all digits of the right hand at this time Vascular: Cap refill brisk Pain: Tenderness to palpation about the right distal radius, particularly over the radial styloid Tenderness to palpation of right anatomical snuffbox and scaphoid tubercle No tenderness to palpation of ulnar aspect of right wrist Skin: No lacerations or abrasions. General: No ecchymosis, erythema, or evidence of infection. Psych: Appears grossly normal Affect normal Attitude cooperative Results Reviewed Results Reviewed: X-rays obtained in the office today and independently reviewed by me, Jose Hernandez PA-C, demonstrate nondisplaced fracture of the right radial styloid, as well as a lucency on the right scaphoid concerning for occult fracture. Assessment & Plan Assessment & Plan (1) Nondisplaced fracture of right radial styloid process, initial encounter for closed fracture: Code(s): S52.514A - Nondisplaced fracture of right radial styloid process, initial encounter for closed fracture Category: Medical (2) Tenderness of anatomical snuffbox: Code(s): M79.643 - Pain in unspecified hand Category: Medical Plan 1. Right radial styloid fracture 2. Tenderness of anatomical snuffbox with associated concerning area on x-ray Date of injury 10/06/2024 Patient is educated about this condition Patient is educated about the typical treatment course At this time, patient is educated that my recommendation is to remain in a thumb spica cast, however the patient refuses this, but is open to being placed into a Velcro thumb spica splint that she can remove while she is taking a shower Patient is educated on proper splint care and precautions urgent MRI is ordered for assessment of the health of the scaphoid, there is concern for an occult fracture as the patient continues to have ongoing snuffbox and scaphoid tubercle tenderness Patient understands this is and is amenable to this plan Orders: Orders XR wrist RT w scaphoid 11/16/24 M79.641 - Pain in right hand MR wrist RT wo con 11/16/24 M79.643 - Pain in unspecified hand, S52.514A - Nondisplaced fracture of right radial styloid process, initial encounter for closed fracture Coding Level of Care Code Est Pt Level 3 (45530) Diagnoses Nondisplaced fracture of right radial styloid process, initial encounter for closed fracture S52.514A Tenderness of anatomical snuffbox M79.643
--- OUTSIDE RECORDS SUMMARY | 2024-11-16 13:23 | XMS_ITS ---
Author Organization [facility] Address [address] [place] [address] 7t [place] [address] Care Team Providers Care Welfare Case Worker Name Role Phone Name, Kiel BAILEY Primary Care Provider Katlyn Rodriguez PharmD Unavailable Ania Spencer Unavailable Opal Leyva Unavailable [phone] Complex Status:Enrolled (Active) Start date:08/20/2024 Enrollment date:09/04/2024 Enrollment reason:ADT Feed Overview ED- [place] [facility] [place]. Case Team Name Relationship Phone Opal Leyva(Responsible Staff) Registered Nurse [phone] Continued Care and Services Coordination
--- OUTSIDE RECORDS SUMMARY | 2024-11-16 13:23 | XMS_ITS | Encounter Summary ---
Author Organization [employer] [facility] Address [address] [place] [address] 7t [place] [address] Care Team Providers Care Epic Prelude Analyst Name Role Phone Name, Kiel BAILEY Primary Care Provider Katlyn Rodriguez PharmD Unavailable [phone] Nehal Ann RN Unavailable [phone] Ania Spencer Unavailable Opal Leyva Unavailable [phone] Encounter Details Date Type Department Care Team (Late st Contact Info) Description 07/01/2022 Abstract [facility] MEDICINE [address] [place], [place] [phone] Name, MD Kiel [address] [place], [place] [phone] Social History Tobacco Use Types Packs/Day Years [...] Description 11/27/2024 10:30 AM EDT Medication Management [address] [phone] Katlyn Rodriguez PharmD [address] [place] [address] 01/28/2025 11:00 AM EST Office Visit [address] [phone] Name, MD Kiel [address] [place] [address] 02/04/2025 11:30 AM EST Clinical Support [address] [phone] Opal Steiner, MARINA documented as of this encounter Visit Diagnoses Not on filedocumented in this encounter Care Teams Epic Prelude Analyst Relationship Specialty Start Date End Date NameKiel MD [address] [place] [address] PCP - General Family Medicine 07/15/15 Katlyn Rodriguez PharmD [address] [place] [address] Pharmacist Internal Medicine 10/08/22 Nehal Ann, MARINA [address] [place] [address] Registered Nurse Family Medicine 08/20/24 10/29/24 Ania Spencer 08/20/24 Opal Leyva Registered Nurse 10/29/24 Marta Ovalle Mainspring FormerEntry Level Account Representative 05/25/23 documented as of this encounter
--- OUTSIDE RECORDS SUMMARY | 2024-11-16 13:23 | XMS_ITS | Encounter Summary ---
Author Organization [employer] Address [address] [facility] [address] 7t [place] [address] Care Team Providers Care Cast Associate Name Role Phone Name, Kiel BAILEY Primary Care Provider [phone] Katlyn Rodriguez PharmD Unavailable [phone] Nehal Ann RN Unavailable [phone] Ania Spencer Unavailable Opal Leyva Unavailable [phone] Encounter Details Date Type Department Care Team (Late Contact Info) Description 03/12/2022 Orders Only [facility] MED & PEDS [address] [place] [address] Millie Sawant LPN Social History Tobacco Use [...] Care Team (Late Contact Info) Description 11/27/2024 10:30 AM EDT Medication Management [address] [address] Katlyn Rodriguez PharmD [address] [place] [address] 01/28/2025 11:00 AM EST Office Visit [address] [address] Name, MD Kiel [address] [place] [address] 02/04/2025 11:30 AM EST Clinical Support [address] [address] Opal Steiner, RN documented as of this encounter Visit Diagnoses Not on filedocumented in this encounter Care Teams Cast Associate Relationship Specialty Start Date End Date Name, MD Kiel [address] [place] [address] PCP - General Family Medicine 07/15/15 Katlyn Rodriguez, PharmD [address] [place] [address] Pharmacist Internal Medicine 10/08/22 Nehal Ann, MARINA [address] [place] [address] Registered Nurse Family Medicine 08/20/24 10/29/24 Ania Spencer 08/20/24 Opal Leyva Registered Nurse 10/29/24 Marta Ovalle Packing Machine Can FeederCommunity Support Professional 05/25/23 documented as of this encounter
--- OUTSIDE RECORDS SUMMARY | 2024-11-16 13:23 | XMS_ITS | Encounter Summary ---
Author Organization [employer] Address [address] [place] [address] 7[place] [address] Care Team Providers Care Import/Export Administrator Name Role Phone Name, Kiel BAILEY Primary Care Provider [phone] Katlyn Rodriguez PharmD Unavailable Nehal Ann RN Unavailable [phone] Ania Spencer Unavailable Opal Leyva Unavailable [phone] Reason for Referral * Consultation (Routine) - Closed Specialty Diagnoses / Procedures Referred By Contac t Referred To Contact Physical Therapy Diagnoses Hemiparesis of left dominant side as late effect of cerebral infarction ([facility]/HCC) Kiel Shaffer MD [address] [place] [address] Phone: tel: fax: [facility] Physical [facility] [address] [place] [address] Phone: tel: fax: Referral ID Status Reason Start Date Expiration Date V isits Requested Visits Authorized [id number] Closed Specialty Services Required 10/06/2024 10/06/2025 20 20 Reason for Visit * Reason Onset Date Comments Referral 10/05/2024 Encounter Details Date Type Department Care Team (Late st Contact Info) Description 10/05/2024 Telephone [facility] MEDICINE [address] [place] [address] Kiel Shaffer MD [address] [place], [place] [phone] Referral Social History Tobacco Use Types Packs/Day [...] 10/05/2024 1:40 PM EDT TC placed to [facility] with [facility] physical therapy regarding referral request. [facility] states they havean order for physical therapy for weakness of both lower extremities. [facility] is requesting the referral be sent to them with MD signature. [facility] states when requesting additional visits through [facility], they are very particular and request MD signature. [facility] provided fax number [phone]. TC placed to [facility] Blue Team procurement specialist [facility] for clarification on what is to be done. [facility] states they have not heard of this. [facility] states pt may need new referral as they after 30 days. TC placed to [facility] with [facility] physical therapy for clarification on request. [facility] states they require the referral to be electronically signed or physically signed by an MD. Message forwarded to PCP to review and advise. * Telephone Encounter - Rosario Phillips - 10/05/2024 11:04 AM EDT TC from [facility] with [facility] requesting a new referral for physical therapy with an MD sing Contact pt at [phone] documented in this encounter Plan of Treatment Upcoming Encounters Date Type Department Care Team (Late st Contact Info) Description 11/27/2024 10:30 AM EDT Medication Management [address] [address] Katlyn Rodriguez, PharmD [address] [place] [address] 01/28/2025 11:00 AM EST Office Visit [address] [address] Name, MD Kiel [address] [place] [address] 02/04/2025 11:30 AM EST Clinical Support [facility] MEDICINE [address] [place] [address] Opal Steiner RN Scheduled Referrals Name Type [...] documented as of this encounter Care Teams Import/Export Administrator Relationship Specialty Start Date End Date Name, MD Kiel [address] [place] [address] PCP - General Family Medicine 07/15/15 Puia, Katlyn, PharmD [address] [place] [address] Pharmacist Internal Medicine 10/08/22 Nehal Ann, MARINA [address] [place] [address] Registered Nurse Family Medicine 08/20/24 10/29/24 Ania Spencer 08/20/24 Opal Leyva Registered Nurse 10/29/24 Marta Ovalle Csm ConsultantPhysician'S Assistant 05/25/23 documented as of this encounter
--- OUTSIDE RECORDS SUMMARY | 2024-11-16 13:23 | XMS_ITS | Encounter Summary ---
Author Organization [employer] Address [address] [place] [address] 7t [place] [address] Care Team Providers Care Associate Spa Director Name Role Phone Name, Kiel BAILEY Primary Care Provider Katlyn Rodriguez PharmD Unavailable Nehal Ann RN Unavailable [phone] Ania Spencer Unavailable Opal Leyva Unavailable [phone] Reason for Visit * Reason Onset Date Comments Medication Problem 08/30/2023 Encounter Details Date Type Department Care Team (Late st Contact Info) Description 08/30/2023 Telephone [facility] MEDICINE [address] [place], [place] [phone] Name, MD Kiel [address] [place], [place] [phone] Medication Problem Social History Tobacco Use Types [...] past 12 months, has t he [employer], gas, oil or water company threatened to [...] Description 11/27/2024 10:30 AM EDT Medication Management [address] [address] Katlyn Rodriguez, AngieD [address] [place] [address] 01/28/2025 11:00 AM EST Office Visit [address] [address] Name, MD Kiel [address] [place] [address] 02/04/2025 11:30 AM EST Clinical Support [address] [address] Opal Steiner, RN documented as of this [...] as of this encounter Care Teams Associate Spa Director Relationship Specialty Start Date End Date Name, MD Kiel [address] [place] [address] PCP - General Family Medicine 07/15/15 Puia, Katlyn, PharmD [address] [place] [address] Pharmacist Internal Medicine 10/08/22 Nehal Ann RN [address] [place] [address] Registered Nurse Family Medicine 08/20/24 10/29/24 Ania Spencer 08/20/24 Opal Leyva Registered Nurse 10/29/24 Marta Ovalle Director WritingTeacher Resource 05/25/23 documented as of this encounter
--- OUTSIDE RECORDS SUMMARY | 2024-11-16 13:23 | XMS_ITS | Encounter Summary ---
Author Organization [employer] Address [address] [facility] 7t [place] [address] Care Team Providers Care Tax Services Intern Name Role Phone Name, Kiel BAILEY Primary Care Provider [phone] Ktalyn Rodriguez PharmD Unavailable [phone] Nehal Ann RN Unavailable [phone] Ania Spencer Unavailable Opal Leyva Unavailable [phone] Reason for Visit * Reason Comments Med Refill Encounter Details Date Type Department Care Team (Late st Contact Info) Description 06/27/2023 Refill [facility] MEDICINE [address] [place], [place] [phone] Katlyn Rodriguez, PharmD [address] [place], [place] [phone] Tobacco use disorder Social History Tobacco Use [...] Description 11/27/2024 10:30 AM EDT Medication Management [address] [address] PuiaReidKatlyn, PharmD [address] [place] [address] 01/28/2025 11:00 AM EST Office Visit [address] [address] Name, MD Kiel [address] [place] [address] 02/04/2025 11:30 AM EST Clinical Support [address] [address] Opal Steiner, MARINA documented as of this [...] documented as of this encounter Care Teams Tax Services Intern Relationship Specialty Start Date End Date Name, MD Kiel [address] [place] [address] PCP - General Family Medicine 07/15/15 Puia, Katlyn, PharmD [address] [place] [address] Pharmacist Internal Medicine 10/08/22 Nehal Ann RN [address] [place] [address] Registered Nurse Family Medicine 08/20/24 10/29/24 Ania Spencer 08/20/24 Opal Leyva Registered Nurse 10/29/24 Marta Ovalle Business TrainerForensic Ballistics Expert 05/25/23 documented as of this encounter
--- OUTSIDE RECORDS SUMMARY | 2024-11-16 13:23 | XMS_ITS | Encounter Summary ---
Author Organization [employer] Address [address] [facility] 7t [place] [address] Care Team Providers Care Check Services Clerk Name Role Phone Name, Kiel BAILEY Primary Care Provider Katlyn Rodriguez PharmD Unavailable [phone] Nehal Ann RN Unavailable [phone] Ania Spencer Unavailable Opal Leyva Unavailable Reason for Visit * Reason Comments Med Refill Encounter Details Date Type Department Care Team (Late st Contact Info) Description 04/15/2023 [facility]ill [facility] [address] [place], [place] [phone] Yaneth Restrepo FNP [address] [place] [address] Diabetes mellitus type 2 in obese (CMS/HCC) [...] Description 11/27/2024 10:30 AM EDT Medication Management [address] [address] Katlyn Rodriguez, PharmD [address] [place] [address] 01/28/2025 11:00 AM EST Office Visit [address] [address] Name, MD Kiel [address] [place] [address] 02/04/2025 11:30 AM EST Clinical Support [address] [address] Opal Steiner RN documented as of this [...] documented as of this encounter Care Teams Check Services Clerk Relationship Specialty Start Date End Date Name, MD Kiel [address] [place] [address] PCP - General Family Medicine 07/15/15 Katlyn Rodriguez, PharmD [address] [place] [address] Pharmacist Internal Medicine 10/08/22 Nehal Ann RN [address] [place] [address] Registered Nurse Family Medicine 08/20/24 10/29/24 Ania Spencer 08/20/24 Opal Leyva Registered Nurse 10/29/24 Marta Ovalle Prepared Foods Production Team MemberBusiness Education Teacher 05/25/23 documented as of this encounter
--- OUTSIDE RECORDS SUMMARY | 2024-11-16 13:23 | XMS_ITS | Encounter Summary ---
Author Organization [employer] Address [address] [place] [address] 7t [place] [address] Care Team Providers Care Roller Engraver Name Role Phone Name, Kiel BAILEY Primary Care Provider Katlyn Rodriguez PharmD Unavailable [phone] Nehal Ann RN Unavailable [phone] Ania Spencer Unavailable Opal Leyva Unavailable [phone] Encounter Details Date Type Department Care Team (Late st Contact Info) Description 07/01/2022 Abstract [facility] MEDICINE [address] [place], [place] [phone] Name, MD Kiel [address] [place], [place] [phone] Social History Tobacco Use Types Packs/Day Years [...] Description 11/27/2024 10:30 AM EDT Medication Management [address] [phone] Katlyn Rodriguez PharmD [address] [place] [address] 01/28/2025 11:00 AM EST Office Visit [address] [phone] Name, MD Kiel [address] [place] [address] 02/04/2025 11:30 AM EST Clinical Support [address] [phone] Opal Stenier RN documented as of this encounter Procedures Procedure Name Priority Date/Time Associated Diagnosis Comments COLONOSCOPY Routine 07/01/2022 4:37 PM EDT documented in this encounter Results * Colonoscopy (07/01/2022 4:37 PM EDT) Colonoscopy Normal Normal Narrative Emely Devine - 07/01/2022 4:37 PM EDT Recommended 5 year follow up ([facility]) us Historical Provider HEALTH MAINTENANCE Final Result documented in this encounter Visit Diagnoses Not on filedocumented in this encounter Care Teams Roller Engraver Relationship Specialty Start Date End Date Name, MD Kiel [address] [place] [address] PCP - General Family Medicine 07/15/15 Katlyn Rodriguez, Bin [address] [place] [address] Pharmacist Internal Medicine 10/08/22 Nehal Ann RN [address] [place] [address] Registered Nurse Family Medicine 08/20/24 10/29/24 Ania Spencer 08/20/24 Opal Leyva Registered Nurse 10/29/24 Marta Ovalle Whizzer OperatorGuitar Maker 05/25/23 documented as of this encounter
--- OUTSIDE RECORDS SUMMARY | 2024-11-16 13:23 | XMS_ITS | Encounter Summary ---
Author Organization [employer] Address 75 [facility] 7t [place] [address] Care Team Providers Care Food General Manager Name Role Phone Name, Kiel BAILEY Primary Care Provider Katlyn Rodriguez PharmD Unavailable [phone] Nehal Ann RN Unavailable [phone] Ania Spencer Unavailable Opal Leyva Unavailable [phone] Reason for Visit * Reason Onset Date Comments Reschedule 08/01/2023 Encounter Details Date Type Department Care Team (Late st Contact Info) Description 08/01/2023 Telephone [facility] 230 [place], [place] [phone] Name, MD Kiel 230 [place], [place] [phone] Reschedule Social History Tobacco Use Types Packs/Day [...] encounter Miscellaneous Notes * Telephone Encounter - Cihtra Lancaster RN - 08/01/2023 9:55 AM EDT Triage call with [employer] Technical Specialist ID [id number] . Pt reports Covid + test this [...] 08/01/2023 9:04 AM EDT Patient cancelled todays CYCLE MANAGER RV appt today. Pt's CYCLE MANAGER appt has been rescheduled for chronic [...] AM EDT Tc from pt requesting r/s CYCLE MANAGER appt, stated is sick and suspect is COVID documented in this encounter Plan of Treatment Upcoming Encounters Date Type Department Care Team (Late st Contact Info) Description 11/27/2024 10:30 AM EDT Medication Management [facility] [address] [place] [address] Katlyn Rodriguez, PharmD 230 [place] [address] 01/28/2025 11:00 AM EST Office Visit [facility] [address] [place] [address] Name, MD Kiel [address] [place] [address] 02/04/2025 11:30 AM EST Clinical Support [facility] [address] [place] [address] Opal Steiner, RN documented as of this [...] documented as of this encounter Care Teams Food General Manager Relationship Specialty Start Date End Date Name, MD Kiel 230 [place] [address] PCP - General Family Medicine 07/15/15 Puia, Katlyn, PharmD [address] [place] [address] Pharmacist Internal Medicine 10/08/22 Nehal Ann, MARINA [address] [place] [address] Registered Nurse Family Medicine 08/20/24 10/29/24 Ania Spencer 08/20/24 Opal Leyva Registered Nurse 10/29/24 Marta Ovalle Naval EngineerManager Process Improvement 05/25/23 documented as of this encounter
--- OUTSIDE RECORDS SUMMARY | 2024-11-16 13:23 | XMS_ITS | Encounter Summary ---
Author Organization [employer] Address [address] [place] [address] 7t [place] [address] Care Team Providers Care Airport Representative Name Role Phone Name, Kiel BAILEY Primary Care Provider [phone] Katlyn Rodriguez PharmD Unavailable Nehal Ann RN Unavailable [phone] Ania Spencer Unavailable Opal Leyva Unavailable [phone] Reason for Visit * Reason Comments Med Refill Encounter Details Date Type Department Care Team (Late st Contact Info) Description 07/02/2022 Refill [facility] 230 [place], [place] [phone] Name, MD Kiel 230 [place], [place] [phone] Chronic pain syndrome Social History Tobacco Use [...] Description 11/27/2024 10:30 AM EDT Medication Management [address] [address] Katlyn Rodriguez PharmD [address] [place] [address] 01/28/2025 11:00 AM EST Office Visit [address] [address] Name, MD Kiel [address] [place] [address] 02/04/2025 11:30 AM EST Clinical Support [address] [address] Opal Steiner, MARINA documented as of this encounter Visit Diagnoses Diagnosis Chronic pain syndrome documented in this encounter Care Teams Airport Representative Relationship Specialty Start Date End Date Name, MD Kiel [address] [place] [address] PCP - General Family Medicine 07/15/15 Katlyn Rodriguez PharmD [address] [place] [address] Pharmacist Internal Medicine 10/08/22 Nehal Ann, MARINA [address] [place] [address] Registered Nurse Family Medicine 08/20/24 10/29/24 Ania Spencer 08/20/24 Opal Leyva Registered Nurse 10/29/24 Marta Ovalle Assembler Leather GoodsSerials Librarian 05/25/23 documented as of this encounter
--- OUTSIDE RECORDS SUMMARY | 2024-11-16 13:23 | XMS_ITS | Encounter Summary ---
Author Organization [employer] Address 75 [facility] 7t [place] [address] Care Team Providers Care Story Reader Name Role Phone Name, Kiel BAILEY Primary Care Provider [phone] Katlyn Rodriguez PharmD Unavailable Nehal Ann RN Unavailable [phone] Ania Spencer Unavailable Opal Leyva Unavailable [phone] Reason for Visit * Reason Comments Med Refill Encounter Details Date Type Department Care Team (Late st Contact Info) Description 09/07/2023 Refill [facility] CHC MED & PEDS [address] [place], [place] [phone] Name, MD Kiel 230 [place] [address] Type 2 diabetes mellitus with other specified [...] Description 11/27/2024 10:30 AM EDT Medication Management [address] [address] Katlyn Rodriguez PharmD [address] [place] [address] 01/28/2025 11:00 AM EST Office Visit [address] [address] Name, MD Kiel [address] [place] [address] 02/04/2025 11:30 AM EST Clinical Support [address] [address] Opal Steiner, RN documented as of this [...] documented as of this encounter Care Teams Story Reader Relationship Specialty Start Date End Date Name, MD Kiel 230 [place] [address] PCP - General Family Medicine 07/15/15 Katlyn Rodriguez, PharmD 230 [place] [address] Pharmacist Internal Medicine 10/08/22 Nehal Ann RN 505 [place] [address] Registered Nurse Family Medicine 08/20/24 10/29/24 Ania Spencer 08/20/24 Opal Leyva Registered Nurse 10/29/24 Marta Ovalle Spar Machine Operator HelperNetwork Intern 05/25/23 documented as of this encounter
--- OUTSIDE RECORDS SUMMARY | 2024-11-16 13:23 | XMS_ITS | Encounter Summary ---
Author Organization [employer] Address [address] [place] [address] 7t [place] [address] Care Team Providers Care Repair Armature Winder Name Role Phone Name, Kiel BAILEY Primary Care Provider [phone] Katlyn Rodriguez PharmD Unavailable [phone] Nehal Ann RN Unavailable [phone] Ania Spencer Unavailable Opal Leyva Unavailable [phone] Reason for Visit * Reason Onset Date Comments Appointment Request 02/29/2024 Encounter Details Date Type Department Care Team ([facility] st Contact Info) Description 02/29/2024 Telephone [facility] 230 [place], [place] [phone] Name, MD Kiel 230 [place], [place] [phone] Appointment Request Social History Tobacco Use Types [...] the past 12 months, has t he [employer], gas, oil or water [employer] threatened to shut off services in your [...] different date and time. Pt does speak austrian so you will need an asbestos hazard abatement worker. documented in this encounter Plan of Treatment Upcoming Encounters Date Type Department Care Team (Late st Contact Info) Description 11/27/2024 10:30 AM EDT Medication Management [facility] [address] [place] [address] Katlyn Rodriguez, AngieD [address] [place] [address] 01/28/2025 11:00 AM EST Office Visit [facility] [address] [place] [address] Name, MD Kiel 230 [place] [address] 02/04/2025 11:30 AM EST Clinical Support [facility] [address] [place] [address] Opal Steiner, RN documented as of this [...] documented as of this encounter Care Teams Repair Armature Winder Relationship Specialty Start Date End Date Name, MD Kiel [address] [place] [address] PCP - General Family Medicine 07/15/15 Puia, Katlyn, PharmD [address] [place] [address] Pharmacist Internal Medicine 10/08/22 Nehal Ann, MARINA [address] [place] [address] Registered Nurse Family Medicine 08/20/24 10/29/24 Ania Spencer 08/20/24 Opal Leyva Registered Nurse 10/29/24 Marta Ovalle Custody OfficerCar Hop 05/25/23 documented as of this encounter
--- OUTSIDE RECORDS SUMMARY | 2024-11-16 13:23 | XMS_ITS | Encounter Summary ---
Author Organization [employer] Address [address] [place] [address] 7t [place] [address] Care Team Providers Care Entrance Guard Name Role Phone Name, Kiel BAILEY Primary Care Provider [phone] Katlyn Rodriguez PharmD Unavailable [phone] Nehal Ann RN Unavailable [phone] Ania Spencer Unavailable Opal Leyva Unavailable Reason for Visit * Reason Comments Med Refill Encounter Details Date Type Department Care Team (Late st Contact Info) Description 06/28/2022 Refill [facility]INE 230 [place], [place] [phone] Name, MD Kiel 230 [place], [place] [phone] Chronic pain syndrome Social History Tobacco Use [...] Description 11/27/2024 10:30 AM EDT Medication Management [address] [address] Katlyn Rodriguez PharmD [address] [place] [address] 01/28/2025 11:00 AM EST Office Visit [address] [address] Name, MD Kiel [address] [place] [address] 02/04/2025 11:30 AM EST Clinical Support [address] [address] Opal Steiner, MARINA documented as of this encounter Visit Diagnoses Diagnosis Chronic pain syndrome documented in this encounter Care Teams Entrance Guard Relationship Specialty Start Date End Date Name, MD Kiel [address] [place] [address] PCP - General Family Medicine 07/15/15 Katlyn Rodriguez PharmD [address] [place] [address] Pharmacist Internal Medicine 10/08/22 Nehal Ann, MARINA [address] [place] [address] Registered Nurse Family Medicine 08/20/24 10/29/24 Ania Spencer 08/20/24 Opal Leyva Registered Nurse 10/29/24 Marta Ovalle Airport Operations SpecialistDrafter Civil 05/25/23 documented as of this encounter
--- OUTSIDE RECORDS SUMMARY | 2024-11-16 13:23 | XMS_ITS | Encounter Summary ---
Author Organization [employer] Address 75 [facility] 7t [place] [address] Care Team Providers Care Debridging Machine Operator Name Role Phone Name, Kiel BAILEY Primary Care Provider Katlyn Rodriguez PharmD Unavailable Nehal Ann RN Unavailable [phone] Ania Spencer Unavailable Opal Leyva Unavailable [phone] Reason for Visit * Reason Comments Med Refill Encounter Details Date Type Department Care Team (Late st Contact Info) Description 06/08/2024 Refill [facility] CHC MED & PEDS [address] [place], [place] [phone] Name, MD Kiel 230 [place] [address] Chronic pain syndrome Social History Tobacco Use [...] the past 12 months, has t he [employer], gas, oil or water [email or web address] threatened to shut off services in your [...] Description 11/27/2024 10:30 AM EDT Medication Management [address] [address] Katlyn Rodriguez PharmD [address] [place] [address] 01/28/2025 11:00 AM EST Office Visit [address] [address] Name, MD Kiel [address] [place] [address] 02/04/2025 11:30 AM EST Clinical Support [address] [address] Opal Steiner, MARINA documented as of this [...] documented as of this encounter Care Teams Debridging Machine Operator Relationship Specialty Start Date End Date Name, MD Kiel 230 [place] [address] PCP - General Family Medicine 07/15/15 Puia, Katlyn, PharmD 230 [place] [address] Pharmacist Internal Medicine 10/08/22 Nehal Ann RN 505 [place] [address] Registered Nurse Family Medicine 08/20/24 10/29/24 Ania Spencer 08/20/24 Opal Leyva Registered Nurse 10/29/24 Marta Ovalle Inspector Open DieFraming And Hanging 05/25/23 documented as of this encounter
--- OUTSIDE RECORDS SUMMARY | 2024-11-16 13:23 | XMS_ITS | Encounter Summary ---
Author Organization [employer] Address [address] [place] [address] 7t [place] [address] Care Team Providers Care Rejector Name Role Phone Name, Kiel BAILEY Primary Care Provider Katlyn Rodriguez PharmD Unavailable Nehal Ann RN Unavailable [phone] Ania Spencer Unavailable Opal Leyva Unavailable [phone] Reason for Visit * Reason Comments Med Refill Encounter Details Date Type Department Care Team (Late st Contact Info) Description 04/25/2022 Refill [facility] MED[facility]INE 230 [place], [place] [phone] Name, MD Kile 230 [place], [place] [phone] Diabetes mellitus type 2 in obese (CMS/HCC) [...] Description 11/27/2024 10:30 AM EDT Medication Management [address] [address] Katlyn Rodriguez PharmD [address] [place] [address] 01/28/2025 11:00 AM EST Office Visit [address] [address] Name, MD Kiel [address] [place] [address] 02/04/2025 11:30 AM EST Clinical Support [address] [phone] Opal Steiner, MARINA documented as of this encounter Visit Diagnoses Diagnosis Diabetes mellitus type 2 in obese- Primary Type II or unspecified type diabetes mellitus without mention of complication, not stated as uncontrolled documented in this encounter Care Teams Rejector Relationship Specialty Start Date End Date Name, MD Kiel [address] [place] [address] PCP - General Family Medicine 07/15/15 Katlyn Rodriguez PharmD [address] [place] [address] Pharmacist Internal Medicine 10/08/22 Nehal Ann, MARINA [address] [place] [address] Registered Nurse Family Medicine 08/20/24 10/29/24 Ania Spencer 08/20/24 Opal Leyva Registered Nurse 10/29/24 Marta Ovalle Soap GrinderPeanut Salter 05/25/23 documented as of this encounter
--- OUTSIDE RECORDS SUMMARY | 2024-11-16 13:23 | XMS_ITS | Encounter Summary ---
Author Organization [employer] Address [address] [facility] 7t [place] [address] Care Team Providers Care Horse Exerciser Name Role Phone Name, Kiel BAILEY Primary Care Provider Katlyn Rodriguez PharmD Unavailable [phone] Nehal Ann RN Unavailable [phone] Ania Spencer Unavailable Opal Leyva Unavailable [phone] Encounter Details Date Type Department Care Team (Late st Contact Info) Description 05/01/2024 Telephone [facility] MEDICINE 230 [place], [place] [phone] Name, MD Kiel 230 [place], [place] [phone] Social History Tobacco Use Types Packs/Day Years [...] Description 11/27/2024 10:30 AM EDT Medication Management [facility]INE [address] [place] [address] Katlyn Rodriguez, PharmD [address] [place] [address] 01/28/2025 11:00 AM EST Office Visit [facility] [address] [place] [address] Name, MD Kiel [address] [place] [address] 02/04/2025 11:30 AM EST Clinical Support [facility] 230 [place] [address] Opal Steiner, RN documented as of this [...] documented as of this encounter Care Teams Horse Exerciser Relationship Specialty Start Date End Date Name, MD Kiel 230 [place] [address] PCP - General Family Medicine 07/15/15 Puia, Katlyn, PharmD 230 [place] [address] Pharmacist Internal Medicine 10/08/22 Nehal Ann RN [address] [place] [address] Registered Nurse Family Medicine 08/20/24 10/29/24 Ania Spencer 08/20/24 Opal Leyva Registered Nurse 10/29/24 Marta Ovalle Diamond ExpertPurchasing Contracting Clerk 05/25/23 documented as of this encounter
--- OUTSIDE RECORDS SUMMARY | 2024-11-16 13:23 | XMS_ITS ---
Author Organization [employer] Address [address] [place] [address] 7t [place] [address] Care Team Providers Care Disintegrator Operator Name Role Phone Name, Kiel BAILEY Primary Care Provider [phone] Katlyn Rodriguez PharmD Unavailable Ania Spencer Unavailable Opal Leyva Unavailable [phone] CHW Complex Status:Outreach In Progress (Enrolling) Start date:08/20/2024 Enrollment reason:ADT Feed Overview ED- Pt went to [facility] ED on 08/17/24. Case Team Name Relationship Phone Ania [place](Responsible Staff) [phone] Continued Care and Services Coordination
--- OUTSIDE RECORDS SUMMARY | 2024-11-16 13:23 | XMS_ITS | Encounter Summary ---
Author Organization [employer] Address [address] [place] [address] 7t [place] [address] Care Team Providers Care Ammonia Print Operator Name Role Phone Name, Kiel BAILEY Primary Care Provider Katlyn Rodriguez PharmD Unavailable [phone] Nehal Ann RN Unavailable [phone] Ania Spencer Unavailable Opal Leyva Unavailable [phone] Encounter Details Date Type Department Care Team ([facility] Contact Info) Description 02/23/2022 Orders Only [facility] 230 [place], [place] [phone] Name, MD Kiel 230 [place] [address] Social History Tobacco Use Types Packs/Day Years [...] Description 11/27/2024 10:30 AM EDT Medication Management [address] [phone] Katlyn Rodriguez PharmD [address] [place] [address] 01/28/2025 11:00 AM EST Office Visit [address] [phone] Name, MD Kiel [address] [place] [address] 02/04/2025 11:30 AM EST Clinical Support [address] [phone] Opal Steiner, RN documented as of this encounter Visit Diagnoses Not on filedocumented in this encounter Care Teams Ammonia Print Operator Relationship Specialty Start Date End Date Name, MD Kiel [address] [place] [address] PCP - General Family Medicine 07/15/15 Katlyn Rodriguez, Bin [address] [place] [address] Pharmacist Internal Medicine 10/08/22 Nehal Ann, MARINA [address] [place] [address] Registered Nurse Family Medicine 08/20/24 10/29/24 Ania Spencer 08/20/24 Opal Leyva Registered Nurse 10/29/24 Marta Ovalle RendererAdministration Dean 05/25/23 documented as of this encounter
--- OUTSIDE RECORDS SUMMARY | 2024-11-16 13:23 | XMS_ITS | Encounter Summary ---
Author Organization [employer] Address [address] [place] [address] 7t [place] [address] Care Team Providers Care Pediatric Dental Assistant Name Role Phone Name, Kiel BAILEY Primary Care Provider Katlyn Rodriguez PharmD Unavailable Nehal Ann RN Unavailable [phone] Ania Spencer Unavailable Opal Leyva Unavailable [phone] Reason for Visit * Reason Comments Med Refill Encounter Details Date Type Department Care Team (Late st Contact Info) Description 02/10/2022 Refill [facility] CHC MED & PEDS [address] [place], [place] [phone] Name, MD Kiel 230 [place] [address] Chronic pain syndrome (Primary Dx) Social History [...] Description 11/27/2024 10:30 AM EDT Medication Management [address] [phone] Katlyn Rodriguez PharmD [address] [place] [address] 01/28/2025 11:00 AM EST Office Visit [address] [phone] Name, MD Kiel [address] [place] [address] 02/04/2025 11:30 AM EST Clinical Support [address] [phone] Opal Steiner, MARINA documented as of this encounter Visit Diagnoses Diagnosis Chronic pain syndrome- Primary documented in this encounter Care Teams Pediatric Dental Assistant Relationship Specialty Start Date End Date Name, MD Kiel [address] [place] [address] PCP - General Family Medicine 07/15/15 Katlyn Rodriguez PharmD [address] [place] [address] Pharmacist Internal Medicine 10/08/22 Nehal Ann, MARINA [address] [place] [address] Registered Nurse Family Medicine 08/20/24 10/29/24 Ania Spencer 08/20/24 Opal Leyva Registered Nurse 10/29/24 Marta Ovalle Data Modeling ArchitectBaker Doughnut 05/25/23 documented as of this encounter
--- OUTSIDE RECORDS SUMMARY | 2024-11-16 13:23 | XMS_ITS | Encounter Summary ---
Author Organization [employer] Address 75 [facility] 7t [place] [address] Care Team Providers Care Plant Attendant Or Assistant Operator Name Role Phone Name, Kiel BAILEY Primary Care Provider [phone] Katlyn Rodriguez PharmD Unavailable Nehal Ann RN Unavailable Ania Spencer Unavailable Opal Leyva Unavailable [phone] Reason for Visit * Reason Comments Med Refill Encounter Details Date Type Department Care Team (Late st Contact Info) Description 06/08/2024 Refill [facility] CHC MED & PEDS [address] [place], [place] [phone] Name, MD Kiel 230 [place] [address] Chronic pain syndrome Social History Tobacco Use [...] the past 12 months, has t he [employer], gas, oil or water [id number] threatened to shut off services in your [...] Description 11/27/2024 10:30 AM EDT Medication Management [address] [address] Katlyn Rodriguez PharmD [address] [place] [address] 01/28/2025 11:00 AM EST Office Visit [address] [address] Name, MD Kiel [address] [place] [address] 02/04/2025 11:30 AM EST Clinical Support [address] [address] Opal Steiner, MARINA documented as of this [...] documented as of this encounter Care Teams Plant Attendant Or Assistant Operator Relationship Specialty Start Date End Date Name, MD Kiel 230 [place] [address] PCP - General Family Medicine 07/15/15 Puia, Katlyn, PharmD 230 [place] [address] Pharmacist Internal Medicine 10/08/22 Nehal Ann RN 505 [place] [address] Registered Nurse Family Medicine 08/20/24 10/29/24 Ania Spencer 08/20/24 Opal Leyva Registered Nurse 10/29/24 Marta Ovalle FloriculturistAmmonium Nitrate Crystallizer 05/25/23 documented as of this encounter
--- OUTSIDE RECORDS SUMMARY | 2024-11-16 13:23 | XMS_ITS | Encounter Summary ---
Author Organization [employer] Address [address] [place] [address] 7t [place] [address] Care Team Providers Care Sales Enablement Specialist Name Role Phone Name, Kiel BAILEY Primary Care Provider Katlyn Rodriguez PharmD Unavailable Nehal Ann RN Unavailable Ania Spencer Unavailable Opal Leyva Unavailable [phone] Reason for Visit * Reason Comments Med Refill Encounter Details Date Type Department Care Team (Late st Contact Info) Description 07/16/2022 Refill [facility] MEDICINE 230 [place], [place] [phone] Name, MD Kiel 230 [place], [place] [phone] Chronic pain syndrome Social History Tobacco Use [...] Description 11/27/2024 10:30 AM EDT Medication Management [address] [phone] Katlyn Rodriguez PharmD [address] [place] [address] 01/28/2025 11:00 AM EST Office Visit [address] [address] NameKiel MD [address] [place] [address] 02/04/2025 11:30 AM EST Clinical Support [address] [phone] Opal Steiner, MARINA documented as of this encounter Visit Diagnoses Diagnosis Chronic pain syndrome documented in this encounter Additional Health Concerns Assessment Noted Time PHQ-9 Depression Total Score: 7 07/15/19 23 2:39 PM EDT documented as of this encounter Care Teams Sales Enablement Specialist Relationship Specialty Start Date End Date Kiel Shaffer MD [address] [place] [address] PCP - General Family Medicine 07/15/15 Katlyn Rodriguez, Bin [address] [place] [address] Pharmacist Internal Medicine 10/08/22 Nehal Ann, MARINA [address] [place] [address] Registered Nurse Family Medicine 08/20/24 10/29/24 Ania Spencer 08/20/24 Opal Leyva Registered Nurse 10/29/24 Marta Ovalle Ground Wood SupervisorChief Operating Engineer 05/25/23 documented as of this encounter
--- OUTSIDE RECORDS SUMMARY | 2024-11-16 13:24 | XMS_ITS | Encounter Summary ---
Author Organization [employer] Address 75 [facility] 7t [place] [address] Care Team Providers Care Phone Representative Name Role Phone Name, Kiel BAILEY Primary Care Provider Katlyn Rodriguez PharmD Unavailable [phone] Nehal Ann RN Unavailable [phone] Ania Spencer Unavailable Opal Leyva Unavailable [phone] Reason for Visit * Reason Onset Date Comments Durable Medical Equipment 01/24/2023 Encounter Details Date Type Department Care Team (Late st Contact Info) Description 01/24/[address] [facility] MEDICINE 230 [place], [place] [phone] Name, MD Kiel 230 [place], [place] [phone] Durable Medical Equipment Social History Tobacco Use [...] to errol. Any questions, contact pt at [phone] documented in this encounter Plan of Treatment Upcoming Encounters Date Type Department Care Team (Late st Contact Info) Description 11/27/2024 10:30 AM EDT Medication Management [address] [address] Katlyn Rodriguez, PharmD [address] [place] [address] 01/28/2025 11:00 AM EST Office Visit [address] [address] Name, MD Kiel [address] [place] [address] 02/04/2025 11:30 AM EST Clinical Support [address] [address] Opal Steiner, RN documented as of this [...] documented as of this encounter Care Teams Phone Representative Relationship Specialty Start Date End Date Name, MD Kiel 230 [place] [address] PCP - General Family Medicine 07/15/15 Puia, Katlyn, PharmD [address] [place] [address] Pharmacist Internal Medicine 10/08/22 Nehal Ann RN [address] [place] [address] Registered Nurse Family Medicine 08/20/24 10/29/24 Ania Spencer 08/20/24 Opal Leyva Registered Nurse 10/29/24 Marta Ovalle Special Forces SpecialistYoung Adult Librarian 05/25/23 documented as of this encounter
--- OUTSIDE RECORDS SUMMARY | 2024-11-16 13:24 | XMS_ITS | Encounter Summary ---
Author Organization [employer] Address 75 [facility] 7t [place] [address] Care Team Providers Care Rn Oncology Name Role Phone Name, Kiel BAILEY Primary Care Provider [phone] Katlyn Rodriguez PharmD Unavailable [phone] Ania Spencer Unavailable Opal Leyva Unavailable [phone] Encounter Details Date Type Department Care Team (Latest Contact Info) Description 11/15/2024 Travel Social History Tobacco Use Types Packs/Day [...] Upcoming Encounters Date Type Department Care Team ([facility] st Contact Info) Description 11/27/2024 10:30 AM EDT Medication Management [address] [address] Puia, Katlyn, PharmD [address] [place] [address] 01/28/2025 11:00 AM EST Office Visit [address] [address] Name, MD Kiel [address] [place] [address] 02/04/2025 11:30 AM EST Clinical Support [address] [address] Opal Steiner RN documented as of this [...] as of this encounter Care Teams Rn Oncology Relationship Specialty Start Date End Date Name, MD Kiel 230 [place] [address] PCP - General Family Medicine 07/15/15 Katlyn Rodriguez PharmD 230 [place] [address] Pharmacist Internal Medicine 10/08/22 Ania Spencer 08/20/24 Opal Leyva Registered Nurse 10/29/24 Marta Ovalle Garment MenderMetal Ceiling Builder 05/25/23 documented as of this encounter
--- OUTSIDE RECORDS SUMMARY | 2024-11-16 13:24 | XMS_ITS | Encounter Summary ---
Author Organization [employer] Address [address] [place] [address] 7t [place] [address] Care Team Providers Care Ammonia Box Tender Name Role Phone Name, Kiel BAILEY Primary Care Provider Katlyn Rodriguez PharmD Unavailable [phone] Nehal Ann RN Unavailable [phone] Ania Spencer Unavailable Opal Leyva Unavailable [phone] Reason for Visit * Reason Onset Date Comments FYI 08/03/2024 Encounter Details Date Type Department Care Team (Late st Contact Info) Description 08/03/2024 Telephone [facility] MEDICINE 230 [place], [place] [phone] Name, MD Kiel 230 [place], [place] [phone] FYI Social History Tobacco Use Types Packs/Day [...] - 08/03/2024 2:00 PM EDT Tc from [facility] with N stating pt has an upcoming appointment with pcp and would like to report: 1) Pt was discharged yesterday 08/02. Reason: COPD. 2) F/u Left ear symptoms. Pt unable to hear. 3) F/u pull up prescription. Any questions contact [facility] [phone] documented in this encounter Plan of Treatment Upcoming Encounters Date Type Department Care Team (Late st Contact Info) Description 11/27/2024 10:30 AM EDT Medication Management [address] [phone] PuiaPremasa, PharmD [address] [place] [address] 01/28/2025 11:00 AM EST Office Visit [address] [phone] Kiel Shaffer MD [address] [place] [address] 02/04/2025 11:30 AM EST Clinical Support [address] [phone] Opal Steiner RN documented as of this [...] documented as of this encounter Care Teams Ammonia Box Tender Relationship Specialty Start Date End Date Kiel Shaffer MD [address] [place] [address] PCP - General Family Medicine 07/15/15 Puia, Katlyn, PharmD [address] [place] [address] Pharmacist Internal Medicine 10/08/22 Nehal Ann, MRAINA [address] [place] [address] Registered Nurse Family Medicine 08/20/24 10/29/24 Ania Spencer 08/20/24 Opal Leyva Registered Nurse 10/29/24 Marta Ovalle Counter Clerk Tractor PartsPreschool Education Director 05/25/23 documented as of this encounter
--- OUTSIDE RECORDS SUMMARY | 2024-11-16 13:24 | XMS_ITS | Encounter Summary ---
Author Organization [employer] Address 75 [facility] 7t [place] [address] Care Team Providers Care Supervisor Feed House Name Role Phone Name, Kiel BAILEY Primary Care Provider [phone] Katlyn Rodriguez PharmD Unavailable [phone] Ania Spencer Unavailable Opal Leyva Unavailable [phone] Reason for Visit * Reason Onset Date Comments DECEMBER RECALLS 11/12/2024 Encounter Details Date Type Department Care Team (Late st Contact Info) Description 11/12/2024 Telephone [facility] MEDICINE 230 [place] [address] Barbara Martinez MA DECEMBER RECALLS Social History Tobacco Use Types Packs/Day Years [...] encounter Miscellaneous Notes * Telephone Encounter - Barbara Martinez MA - 11/12/2024 2:00 PM EDT Telephone call to patient to schedule the following recall: Visit type: Follow up Appointment notes: DM Patient agree to appointment on 01/28/25 at 11 AM with Name. PT States she needs a hospital f/u appointment due for her being at the hospital , pt states she was not admitted but needs a appointment documented in this encounter Plan of Treatment Upcoming Encounters Date Type Department Care Team (Late st Contact Info) Description 11/27/2024 10:30 AM EDT Medication Management [facility] MEDICINE [address] [place] [address] Katlyn Rodriguez, PharmD [address] [place] [address] 01/28/2025 11:00 AM EST Office Visit [facility] MEDICINE [address] [place] [address] Name, MD Kiel 230 [place] [address] 02/04/2025 11:30 AM EST Clinical Support [facility] MEDICINE [address] [place] [address] Opal Steiner, RN documented as of this [...] as of this encounter Care Teams Supervisor Feed House Relationship Specialty Start Date End Date Name, MD Kiel [address] [place] [address] PCP - General Family Medicine 07/15/15 Puia, Katlyn, PharmD [address] [place] [address] Pharmacist Internal Medicine 10/08/22 Ania Spencer 08/20/24 Opal Leyva Registered Nurse 10/29/24 Marta Ovalle Sales MerchandiserMedical Reimbursement Specialist 05/25/23 documented as of this encounter
--- OUTSIDE RECORDS SUMMARY | 2024-11-16 13:24 | XMS_ITS | Encounter Summary ---
Author Organization [employer] Address [address] [place] [address] 7t [place] [address] Care Team Providers Care Insurance Adjustor Name Role Phone Name, Kiel BAILEY Primary Care Provider [phone] Katlyn Rodriguez PharmD Unavailable Nehal Ann RN Unavailable [phone] Ania Spencer Unavailable Opal Leyva Unavailable [phone] Encounter Details Date Type Department Care Team (Late Contact Info) Description 10/29/2022 Abstract [facility] MEDICINE 230 [place], [place] [phone] Name, MD Kiel 230 [place], [place] [phone] Social History Tobacco Use Types Packs/Day Years [...] 11/27/2024 10:30 AM EDT Medication Management [address] [address] [place] [address] 01/28/2025 11:00 AM EST Office Visit [address] [address] [place] [address] 02/04/2025 11:30 AM EST Clinical Support [address] [phone] Opal Steiner RN documented as of this [...] encounter Results * Diabetes Eye Exam (05/26/2022) [facility] Signature Eye Exam Normal Normal Kiel Shaffer MD HEALTH MAINTENANCE Final Result documented in this encounter Visit Diagnoses Not on filedocumented in this encounter Additional Health Concerns Assessment Noted Time PHQ-9 Depression Total Score: 7 07/15/19 23 2:39 PM EDT documented as of this encounter Care Teams Insurance Adjustor Relationship Specialty Start Date End Date Name, MD Kiel [facility] [place] [address] PCP - General Family Medicine 07/15/15 Katlyn Rodriguez, [place] [address] Pharmacist Internal Medicine 10/08/22 Nehal Ann, RN [address] [place] [address] Registered Nurse Family Medicine 08/20/24 10/29/24 Ania Spencer 08/20/24 Opal Leyva Registered Nurse 10/29/24 Marta Ovalle Injector AssemblerResume Specialist 05/25/23 documented as of this encounter
--- OUTSIDE RECORDS SUMMARY | 2024-11-16 13:24 | XMS_ITS | Encounter Summary ---
Author Organization [employer] Address [address] [place] [address] 7t [place] [address] Care Team Providers Care Healthcare Associate Name Role Phone Name, Kiel BAILEY Primary Care Provider Katlyn Rodriguez PharmD Unavailable [phone] Nehal Ann RN Unavailable [phone] Ania Spencer Unavailable Opal Leyva Unavailable [phone] Reason for Visit * Reason Onset Date Comments Nurse Triage 07/04/2024 Encounter Details Date Type Department Care Team (Late st Contact Info) Description 07/04/2024 Telephone [facility] MEDICINE 230 [place], [place] [phone] Name, MD Kiel 230 [place], [place] [phone] Nurse Triage Social History Tobacco Use Types [...] 07/04/2024 11:25 AM EDT Triage call with [facility] Director [place] [id number]. Pt reports headache over the entire head. No involvement with eye area. BP is 104/60. Pt has been seen by neurologist at [facility] and is being tested for possible tumor. Pt was prescribed dexamethasone byneurologist. Pt pain is moderate . Pt has been prescribed roxicodone 10mg starting 06/28/24 but, reports pharmacy wouldn't fill prescription last time contacted. Pt daughter is speaking for Pt at this time. Daughter is advised to call [facility] for prescription of roxicodone which [...] caller accepted this outcome. Contact pt at [phone] (sri lankan) documented in this encounter Plan of Treatment Upcoming Encounters Date Type Department Care Team ([facility] st Contact Info) Description 11/27/2024 10:30 AM EDT Medication Management [address] [address] Puia, Katlyn, PharmD [address] [place] [address] 01/28/2025 11:00 AM EST Office Visit [address] [address] Name, MD Kiel [address] [place] [address] 02/04/2025 11:30 AM EST Clinical Support [address] [address] Opal Steiner, MARINA documented as of this [...] as of this encounter Care Teams Healthcare Associate Relationship Specialty Start Date End Date Name, MD Kiel 230 [place] [address] PCP - General Family Medicine 07/15/15 Katlyn Rodriguez PharmD 230 [place] [address] Pharmacist Internal Medicine 10/08/22 Nehal Ann RN [address] [place] [address] Registered Nurse Family Medicine 08/20/24 10/29/24 Ania Spencer 08/20/24 Opal Leyva Registered Nurse 10/29/24 Marta Ovalle Director Of Group Counseling ProgramSelf Propelled Mining Machine Operator 05/25/23 documented as of this encounter
--- OUTSIDE RECORDS SUMMARY | 2024-11-16 13:24 | XMS_ITS | Encounter Summary ---
Author Organization [employer] Address [address] [place] [address] 7t [place] [address] Care Team Providers Care Web Software Engineer Name Role Phone Name, Kiel BAILEY Primary Care Provider [phone] Katlyn Rodriguez PharmD Unavailable [phone] Ania Spencer Unavailable Opal Leyva Unavailable [phone] Reason for Visit * Reason Onset Date Comments Med Refill 11/15/2024 WIRELESS RETAIL MANAGER Agreement renewed today 11/15/2024 Needs RX for sock assisatnce device 11/15/2024 Smoking cessation referral requested 11/15/2024 Encounter Details Date Type Department Care Team (Late st Contact Info) Description 11/15/[address] [facility] MEDICINE 230 [place] [address] Opal Steiner, MARINA Cerebellar mass; Chronic intractable headache, unspecified headache type; Long-term current use of opiate analgesic Social History Tobacco Use Types Packs/Day Years [...] Telephone Encounter - Opal Steiner RN - 11/15/2024 11:34 AM EDT Pt had WIRELESS RETAIL MANAGER Renewal appointment today Admits to smoking 2 packs of cigarettes daily. She would like referral for smoking cessation assistance. She's requesting prescription for a sock assistance pulling on/off device as she can't manage currently with dominate hand fracture. BPI completed on: 11/15/2024 , pain severity score: 8, activity interference score: 6 BPI completed on: 11/29/2023 , pain severity score: 7, activity interference scor documented in this encounter Plan of Treatment Upcoming Encounters Date Type Department Care Team (Late st Contact Info) Description 11/27/2024 10:30 AM EDT Medication Management [facility] MEDICINE [address] [place] [address] JenniferReidKatlyn, PharmD [address] [place] [address] 01/28/2025 11:00 AM EST Office Visit [address] [address] Kiel Shaffer MD [address] [place] [address] 02/04/2025 11:30 AM EST Clinical Support [address] [address] Opal Steiner RN documented as of this [...] as of this encounter Visit Diagnoses Diagnosis Cerebellar mass Chronic intractable headache, unspecified headache type Long-term current use of opiate analgesic Encounter for long-term (current) use of other medications documented in this encounter Additional Health Concerns Assessment Noted Time PHQ-9 Depression Total Score: 7 09/05/19 25 11:46 AM EDT documented as of this encounter Care Teams Web Software Engineer Relationship Specialty Start Date End Date Kiel Shaffer MD [address] [place] [address] PCP - General Family Medicine 07/15/15 Puia, Katlyn, PharmD [address] [place] [address] Pharmacist Internal Medicine 10/08/22 Ania Spencer 08/20/24 Opal Leyva Registered Nurse 10/29/24 Marta Ovalle Affiliate Marketing CoordinatorStopper Maker Helper 05/25/23 documented as of this encounter
--- OUTSIDE RECORDS SUMMARY | 2024-11-16 13:24 | XMS_ITS | Encounter Summary ---
Author Organization [employer] Address 75 [facility] 7t [place] [address] Care Team Providers Care Manager Lsw Name Role Phone Name, Kiel BAILEY Primary Care Provider Katlyn Rodriguez PharmD Unavailable [phone] Nehal Ann RN Unavailable [phone] Ania Spencer Unavailable Opal Leyva Unavailable [phone] Reason for Visit * Reason Onset Date Comments Durable Medical Equipment 12/06/2022 Encounter Details Date Type Department Care Team (Late st Contact Info) Description 12/06/2022 Telephone [facility] MEDICINE 230 [place], [place] [phone] Name, MD Kiel 230 [place], [place] [phone] Durable Medical Equipment Social History Tobacco Use [...] to message above. Please contact pt at [phone] (Gabonese) * Telephone Encounter - Jean-Paul Finch - 12/06/2022 3:29 PM EDT Tc from pt requesting status on some bed absorbant pads to not stain bed. Please contact pt at [phone] Gabonese Speaker documented in this encounter Plan of Treatment Upcoming Encounters Date Type Department Care Team (Late st Contact Info) Description 11/27/2024 10:30 AM EDT Medication Management [facility] MEDICINE 230 [place] [address] Puia, Katlyn, PharmD [address] [place] [address] 01/28/2025 11:00 AM EST Office Visit [address] [phone] Kiel Shaffer MD [address] [place] [address] 02/04/2025 11:30 AM EST Clinical Support [address] [phone] Opal Steiner, MARINA documented as of this [...] as of this encounter Care Teams Manager Lsw Relationship Specialty Start Date End Date Kiel Shaffer MD [address] [place] [address] PCP - General Family Medicine 07/15/15 Puia, Katlyn, PharmD [address] [place] [address] Pharmacist Internal Medicine 10/08/22 Nehal Ann, MARINA [address] [place] [address] Registered Nurse Family Medicine 08/20/24 10/29/24 Ania Spencer 08/20/24 Opal Leyva Registered Nurse 10/29/24 Marta Ovalle Dynamometer MechanicElectric Drill Operator 05/25/23 documented as of this encounter
--- OUTSIDE RECORDS SUMMARY | 2024-11-16 13:24 | XMS_ITS | Encounter Summary ---
Author Organization [employer] Address [address] [facility] 7t [place] [address] Care Team Providers Care Job Superintendent Name Role Phone Name, Kiel BAILEY Primary Care Provider Katlyn Rodriguez PharmD Unavailable [phone] Ania Spencer Unavailable Opal Leyva Unavailable [phone] Encounter Details Date Type Department Care Team (Late st Contact Info) Description 11/08/2024 Results Follow-Up [facility] 230 [place] [address] Lorenzo Chavez MD 230 [place] [address] XR Hand 3+ Views Left Social History Tobacco Use Types [...] 11/27/2024 10:30 AM EDT Medication Management [address] [address] Katlyn Rodriguez, PharmD [address] [place] [address] 01/28/2025 11:00 AM EST Office Visit [address] [address] Name, MD Kiel [address] [place] [address] 02/04/2025 11:30 AM EST Clinical Support [address] [address] Opal Steiner, MARINA documented as of this [...] as of this encounter Care Teams Job Superintendent Relationship Specialty Start Date End Date Name, MD Kiel 230 [place] [address] PCP - General Family Medicine 07/15/15 Katlyn Rodriguez, PharmD 230 [place] [address] Pharmacist Internal Medicine 10/08/22 Ania Spencer 08/20/24 Opal Leyva Registered Nurse 10/29/24 Marta Ovalle Order SelectorWrapper Rewinder 05/25/23 documented as of this encounter
--- OUTSIDE RECORDS SUMMARY | 2024-11-16 13:24 | XMS_ITS | Encounter Summary ---
Author Organization [employer] Address [address] [place] [address] 7t [place] [address] Care Team Providers Care Turbine Engineer Name Role Phone Name, Kiel BAILEY Primary Care Provider [phone] Katlyn Rodriguez PharmD Unavailable [phone] Nehal Ann RN Unavailable [phone] Ania Spencer Unavailable Opal Leyva Unavailable [phone] Encounter Details Date Type Department Care Team (Late st Contact Info) Description 08/26/2022 Orders Only [facility] MEDICINE 230 [place] [address] Leia Gonzales LPN Social History Tobacco Use [...] 11/27/2024 10:30 AM EDT Medication Management [address] [phone] Katlyn Rodriguez PharmD [address] [place] [address] 01/28/2025 11:00 AM EST Office Visit [address] [phone] Name, MD Kiel [address] [place] [address] 02/04/2025 11:30 AM EST Clinical Support [address] [phone] Opal Steiner, RN documented as of this encounter Visit Diagnoses Not on filedocumented in this encounter Additional Health Concerns Assessment Noted Time PHQ-9 Depression Total Score: 7 07/15/19 23 2:39 PM EDT documented as of this encounter Care Teams Turbine Engineer Relationship Specialty Start Date End Date Name, MD Kiel [address] [place] [address] PCP - General Family Medicine 07/15/15 Katlyn Rodriguez PharmD [address] [place] [address] Pharmacist Internal Medicine 10/08/22 Nehal Ann, MARINA [address] [place] [address] Registered Nurse Family Medicine 08/20/24 10/29/24 Ania Spencer 08/20/24 Opal Leyva Registered Nurse 10/29/24 Marta Ovalle Custom Protection OfficerSpot Cleaner 05/25/23 documented as of this encounter
--- OUTSIDE RECORDS SUMMARY | 2024-11-16 13:24 | XMS_ITS | Encounter Summary ---
Author Organization [employer] Address 75 [facility] 7t [place] [address] Care Team Providers Care Hedis Nurse Name Role Phone Name, Kiel BAILEY Primary Care Provider Katlyn Rodriguez PharmD Unavailable [phone] Nehal Ann RN Unavailable [phone] Ania Spencer Unavailable Opal Leyva Unavailable Encounter Details Date Type Department Care Team (Late st Contact Info) Description 02/20/2024 Telephone [facility] [address] [place] [address] Name, MD Kiel 230 [place] [address] Social History Tobacco Use Types Packs/Day Years [...] Description 11/27/2024 10:30 AM EDT Medication Management [address] [address] Katlyn Rodriguez PharmD [address] [place] [address] 01/28/2025 11:00 AM EST Office Visit [address] [address] Name, MD Kiel [address] [place] [address] 02/04/2025 11:30 AM EST Clinical Support [address] [address] Opal Steiner, MARINA documented as of this [...] documented as of this encounter Care Teams Hedis Nurse Relationship Specialty Start Date End Date Name, MD Kiel 230 [place] [address] PCP - General Family Medicine 07/15/15 Puia, Katlyn, PharmD 230 [place] [address] Pharmacist Internal Medicine 10/08/22 Nehal Ann RN [address] [place] [address] Registered Nurse Family Medicine 08/20/24 10/29/24 Ania Spencer 08/20/24 Opal Leyva Registered Nurse 10/29/24 Marta Ovalle Coding TechnicianTypewriter Ribbon Winder 05/25/23 documented as of this encounter
--- OUTSIDE RECORDS SUMMARY | 2024-11-16 13:24 | XMS_ITS | Encounter Summary ---
Author Organization [employer] Address [address] [place] [address] [address] [place] [address] Care Team Providers Care Supervisor Cigarette Making Department Name Role Phone Name, Kiel BAILEY Primary Care Provider [phone] Katlyn Rodriguez PharmD Unavailable [phone] Nehal Ann RN Unavailable [phone] Ania Spencer Unavailable Opal Leyva Unavailable [phone] Reason for Visit * Reason Onset Date Comments FYI 08/03/2024 Encounter Details Date Type Department Care Team (Late st Contact Info) Description 08/03/2024 Telephone [facility] [address] [place], [place] [phone] Name, MD Kiel [address] [place], [place] [id number] FYI Social History Tobacco Use Types Packs/Day [...] will be admitting pt for OT and fci. If any questions you can contact pt at [phone], documented in this encounter Plan of Treatment Upcoming Encounters Date Type Department Care Team (Late st Contact Info) Description 11/27/2024 10:30 AM EDT Medication Management [facility] [address] [place], [place] [phone] Katlyn Rodriguez, PharmD [address] [place] [address] 01/28/2025 11:00 AM EST Office Visit [address] [phone] NameKiel MD [address] [place] [address] 02/04/2025 11:30 AM EST Clinical Support [address] [phone] Opal Steiner, MARINA documented as of this [...] as of this encounter Care Teams Supervisor Cigarette Making Department Relationship Specialty Start Date End Date NameKiel MD [address] [place] [address] PCP - General Family Medicine 07/15/15 Puia, Katlyn, PharmD [address] [place] [phone] Pharmacist Internal Medicine 10/08/22 Nehal Ann, MARINA [address] [place] [phone] Registered Nurse Family Medicine 08/20/24 10/29/24 Ania Spencer 08/20/24 Opal Leyva Registered Nurse 10/29/24 Marta Ovalle Supervisor [employer]ing Inspector 05/25/23 documented as of this encounter
--- OUTSIDE RECORDS SUMMARY | 2024-11-16 13:24 | XMS_ITS | Encounter Summary ---
Author Organization [employer] Address [address] [place] [address] [address] [place] [address] Care Team Providers Care Signals Officer Name Role Phone Name, Kiel BAILEY Primary Care Provider [phone] Katlyn Rodriguez PharmD Unavailable Nehal Ann RN Unavailable [phone] Ania Spencer Unavailable Opal Leyva Unavailable [phone] Reason for Referral * Consultation (Routine) - Closed Specialty Diagnoses / Procedures Referred By Contac t Referred To Contact Occupational Therapy Diagnoses Left arm weakness Lizzie Alfaro NP [address] [place] [address] Phone: tel: fax: [facility] [address] [place] [address] Phone: tel: fax: Referral ID Status Reason Start Date Expiration Date V isits Requested Visits Authorized [id number] Closed Specialty Services Required 09/06/2024 09/06/2025 20 20 Encounter Details Date Type Department Care Team (Late st Contact Info) Description 09/06/2024 Orders Only [facility] [address] [place] [address] Lizzie Alfaro NP [address] [place] [address] Left arm weakness (Primary Dx) Social History [...] Upcoming Encounters Date Type Department Care Team ([facility] st Contact Info) Description 11/27/2024 10:30 AM EDT Medication Management [facility] [address] [place] [address] Katlyn Rodriguez, PharmD [address] [place] [address] 01/28/2025 11:00 AM EST Office Visit [address] [phone] [place] [address] 02/04/2025 11:30 AM EST Clinical Support [address] [address] Opal Steiner, MARINA Scheduled Referrals Name Type [...] as of this encounter Care Teams Signals Officer Relationship Specialty Start Date End Date Kiel Shaffer MD [address] [place] [id number] PCP - General Family Medicine 07/15/15 Puia, Katlyn, PharmD [address] [place] [phone] Pharmacist Internal Medicine 10/08/22 Nehal Ann RN [address] [place] [phone] Registered Nurse Family Medicine 08/20/24 10/29/24 Ania Spencer 08/20/24 Opal Leyva Registered Nurse 10/29/24 Marta Ovalle Technical Specialist [employer] 05/25/23 documented as of this encounter
--- OUTSIDE RECORDS SUMMARY | 2024-11-16 13:24 | XMS_ITS | Clinical Summary ---
Author Organization [employer] Address [address] [place] [address] [address] [place] [address] Care Team Providers Care Electroless Plater Name Role Phone Name, Kiel BAILEY Primary Care Provider Katlyn Rodriguez PharmD Unavailable Ania Spencer Unavailable Opal Leyva Unavailable [phone] Allergies Active Allergy Reactions Criticality Noted Date Comments Barium Sulfate Hives 12/01/2023 Gramineae Pollens Itching,Other 07/14/2022 Penicillin G Low 12/01/2023 Other Reaction(s): SWELLING Penicillins Swelling 06/05/2009 Other reaction(s): swelling Medications * This document contains information received from the source organization and may not represent a complete record from that organization. ipratropium-alb uterol (Combivent Respimat) 20-100 MCG/ACT inhaler [...] complication, with long-term current use of insulin (CMS/[facility]),Hyper triglyceridemia Take 2 capsules (2 [...] hours as needed for wheezing. 18 g 06/08/19 25 026 Active Tirzepatide (Mounjaro) 15 MG/0.5ML solution auto-injectorIn dications:Type 2 diabetes mellitus with other specified complication, with long-term current use of insulin (CMS/[facility]) Inject 15 mg under the skin 1 (one) time per week. 2 mL 06/08/19 25 Active ezetimibe (Zetia) 10 MG tabletIndicatio ns:Type 2 diabetes mellitus with other specified complication, with long-term current use of insulin ([facility]/HCC) TAKE 1 TABLET BY MOUTH EVERY MORNING 30 tablet 11 07/24/19 25 Active cetirizine (ZyrTEC) 10 MG tablet TAKE 1 TABLET BY MOUTH EVERY MORNING 90 tablet 1 07/25/19 25 Active lidocaine (Lidoderm) 5 % patch APPLY 1 PATCH TOPICALLY TO SKIN, LEAVE ON FOR 12 HOURS AND OFF FOR 12 HOURS DIRECTED NEEDED FOR MILD PAIN 30 patch 3 08/17/19 25 Active rosuvastatin (Crestor) 40 MG tabletIndicatio ns:Type 2 diabetes mellitus with other specified complication, with long-term current use of insulin (CMS/HCC),Histo ry of stroke,Tobacco use disorder,Hypert riglyceridemia Take [...] long-term current use of insulin ([facility]) Chew 1 tablet (81 mg) in the evening. 90 tablet 3 08/23/19 25 Active metFORMIN XR (Glucophage-XR) 500 MG 24 hr tabletIndicatio ns:Type 2 diabetes mellitus with obesity (CMS/HCC) (CMS/[facility]) Take 1 tablet (500 mg) by mouth at bedtime. 90 tablet 3 08/23/19 25 Active losartan (Cozaar) 50 MG tabletIndicatio ns:Essential hypertension TAKE 1 TABLET BY MOUTH EVERY MORNING 90 tablet 09/13/19 25 Active meloxicam (Mobic) 7.5 MG tablet TAKE 1 TABLET BY MOUTH ONCE DAILY 30 tablet 09/13/19 25 Active TechLite Pen [place] 32G X 4 MM miscIndications :Type 2 diabetes mellitus with other specified complication (CMS/HCC) USE DIRECTED FOUR TIMES DAILY 100 each 09/29/19 25 Active Blood Glucose Monitoring Suppl (FreeStyle Lite) deviceIndicatio ns:Type 2 diabetes mellitus with other specified complication, with long-term current use of insulin ([facility]) Inject 1 each under the skin 2 times daily. Use to test blood sugar as directed 1 each 10/03/19 25 Active glucose blood (FREESTYLE LITE) test stripIndication s:Type 2 diabetes mellitus with other specified complication, with long-term current use of insulin ([facility]) Use to test blood sugar 2 times daily 50 strip 10/03/19 25 Active TRUEplus Lancets 33G miscIndications :Type 2 diabetes mellitus with other specified complication, with long-term current use of insulin ([facility]) Use to test blood sugar twice daily as directed 100 each 10/03/19 25 Active lidocaine (Lidoderm) 5 % patchIndication s:Nondisplaced fracture of right radial styloid process, initial encounter for closed fracture Apply 1 patch topically Once per day. Remove & discard patch within 12 hours or as directed by MD. 30 patch 1 10/10/19 25 Active traZODone (Desyrel) 100 MG tablet [...] long-term current use of insulin ([facility]) Inject 44 Units under the skin at bedtime. Increase, as directed, to max of 50 units daily. 15 mL 5 10/30/19 25 Active oxyCODONE (Roxicodone) 10 MG immediate release tabletIndicatio ns:Cerebellar mass,Chronic intractable headache, unspecified headache type Take 1 tablet (10 mg) by mouth 3 times daily for 28 days. Do not start before November 16, 2024. 84 tablet 11/17/19 25 Active naloxone (Narcan) 4 mg/0.1 mL nasal sprayIndication s:Long-term current use of opiate analgesic Administer 1 spray (4 mg) into affected nostril(s) if needed for opioid reversal. 2 each 2 11/16/19 Active naloxone (Narcan) 4 mg/0.1 mL nasal spray Administer 0.1 mL into affected nostril(s). 12/19/19 22 Discontinued(R eorder (will not trigger notification to Pharmacy)) cloNIDine (Catapres) 0.1 MG tabletIndicatio ns:Psychophysio logical insomnia TAKE 1 TABLET BY MOUTH AT BEDTIME 30 tablet 1 05/05/19 025 Discontinued(R eorder (will not trigger notification to Pharmacy)) PARoxetine (Paxil) 40 MG tablet TAKE 1 TABLET BY MOUTH AT BEDTIME 30 tablet 05/05/19 025 Discontinued(R eorder (will not trigger notification [...] 2024. 84 tablet 09/22/19 25 025 Discontinued insulin glargine (Lantus SoloStar) 100 UNIT/ML penIndications: Type 2 diabetes mellitus with other specified complication, with long-term current use of insulin ([facility]) Inject 40 Units under the skin at bedtime. 15 mL 5 10/03/19 25 025 Discontinued(R eorder (will not trigger notification to Pharmacy)) oxyCODONE (Roxicodone) 10 MG immediate release tabletIndicatio ns:Cerebellar mass,Chronic intractable headache, unspecified headache type Take 1 tablet (10 mg) by mouth 3 times daily for 28 days. Do not start before October 19, 2024. 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: 05/03/23 Chronic pain syndrome 05/03/2023 [...] after visit, who will follow up with rondey as paperwork appears completed and faxed Type 2 diabetes mellitus with other specified co mplication 04/06/2023 Assessment & Plan (09/05/2024 9:40 PM EDT): - Hyperglycemia today post hot chocolate, recent hgb A1c at goal , pt denies concerns re glucose management - A1c 6.7% on 07/16/25 Assessment & Plan (04/06/2023 5:49 PM EST): Hyperglycemia today post hot chocolate, recent hgb A1c at goal , pt denies concerns re glucose management Chronic obstructive pulmonary disease, unspecifi ed 03/24/2023 Assessment & Plan (03/24/2023 3:47 PM EST): I presented the case to [facility] emergency room, patient will go by ambulance [...] EST): Pt reports [facility] of confusion in [facility], declines neuro referral today, reviewed [...] tolerate CPAP On nocturnal oxygen Follows with [facility] pulmonary ([place]) Cocaine abuse, episodic use 06/17/2010 [...] for Paxlovid sent to the pharmacy -Utilized [place] drug interaction tool or die drawing checker to assess interactions with current med [...] Encounters Date Type Department Care Team Description 11/15/2024 11:30 AM EDT Clinical Support [address] [address] Opal Steiner, RN Long-term current use of opiate analgesic (Primary Dx) 11/15/2024 Refill [facility] [address] [place] [address] Opal Steiner, RN Cerebellar mass; Chronic intractable headache, unspecified headache type; Long-term current use of opiate analgesic 11/15/2024 Travel 11/12/2024 Telephone [facility] [address] [place] [address] Barbara Martinez MA 11/12/2024 Telephone [facility] [address] [place] [address] MartinezBarbara hutton, MILO DECEMBER RECALLS 11/08/2024 Results Follow-Up [facility] [address] [place] [address] Lorenzo Chavez MD XR Hand 3+ Views Left 11/08/2024 Travel 11/06/2024 5:00 PM EDT Office Visit [facility] [address] [place] [address] Lorenzo Chavez MD Swelling of left hand (Primary Dx) 11/06/2024 Travel 11/02/2024 Results Follow-Up [facility] [address] [place] [phone] Sarita Baker MD XR Shoulder 2+ Views Left 11/01/2024 1:00 PM EDT Office Visit [address] [phone] Sarita Baker MD Acute bilateral low back pain without sciatica; Acute pain of left shoulder; Bilateral hand pain; Hemiparesis affecting left side as late effect of cerebrovascular accident ([facility]) 11/01/2024 Travel 11/01/2024 Telephone [facility] [address] [place] [address] Kiel Shaffer MD Nurse Triage 10/29/2024 Telephone [facility] [address] [place] [address] Katlyn Rodriguez, PharmD 10/29/2024 Travel 10/18/2024 Refill [facility] [address] [place] [address] Kiel Shaffer MD Psychophysiological insomnia 10/18/2024 Refill [facility] [address] [place] [address] Lizzie Alfaro NP Cerebellar mass; Chronic intractable headache, unspecified headache type 10/17/2024 Patient Outreach [facility] [address] [place] [address] Kiel Shaffer MD Care Coordination (C3CM f/u call- LVM) 10/16/2024 Patient Outreach [facility] [address] [place] [address] Kiel Shaffer MD 10/09/2024 2:00 PM EDT Office Visit [address] [address] Sarita Baker MD Essential hypertension (Primary Dx); Nondisplaced fracture of right radial styloid process, initial encounter for closed fracture 10/09/2024 Travel 10/09/[address] [address] Kiel Shaffer MD ER Follow-up; Nurse Triage 10/09/[address] [address] Kiel Shaffer MD No Show 10/06/2024 Orders Only [facility] External Provider, [facility] 10/05/[address] [address] Kiel Shaffer MD Referral 10/04/2024 Patient Outreach [address] [address] Kiel Shaffer MD Care Management ([facility] TC #2-lvm) 10/02/2024 10:40 AM EDT Office Visit [address] [address] Victorino Graves MD Acute otitis externa of left ear, unspecified type (Primary Dx) 10/02/[address] [address] Kiel Shaffer MD 10/02/2024 Travel 09/28/[address] [address] Kiel Shaffer MD Type 2 diabetes mellitus with other specified complication ([facility]) 09/21/2024 Patient Outreach [address] [address] Kiel Shaffer MD Care Management ([facility]3 TC #1-lvm) 09/19/2024 9:00 AM EDT Clinical Support [address] [address] Obdulia, Opal, RN Long-term current use of opiate analgesic (Primary Dx) 09/19/2024 Refill [facility] [address] [place] [address] Opal Steiner RN Cerebellar mass; Chronic intractable headache, unspecified headache type 09/19/2024 Travel 09/12/2024 Refill [facility] [address] [place] [address] Kiel Shaffer MD 09/10/2024 Refill [facility] [address] [place] [address] Katlyn Rodriguez, Bin Essential hypertension 09/06/2024 Orders Only [facility] [address] [place] [address] Lizzie Alfaro NP Left arm weakness (Primary Dx) 09/06/2024 Orders Only [facility] [address] [place] [address] Lizzie Alfaro NP Weakness of both lower extremities (Primary Dx); Hemiparesis of left dominant side as late effect of cerebral infarction (CMS/HCC) 09/06/2024 Telephone [facility] [address] [place] [address] Kiel Shaffer MD PT Order 09/06/[address] [address] Kiel Shaffer MD Requesting Call Back 09/05/2024 11:30 AM EDT Office Visit [address] [address] Sravanthi Robbins MD Type 2 diabetes mellitus with other specified complication, with long-term current use of insulin ([facility]) (Primary Dx); Left ear pain; Impacted cerumen of right ear; Excessive cerumen in ear canal, left; Essential hypertension; Dietary counseling; Exercise counseling; Class 3 severe obesity due to excess calories with serious comorbidity and body mass index (BMI) of 40.0 to 44.9 in adult 09/05/2024 Telephone [facility] [address] [place] [address] Kiel Shaffer MD Medication Question; Prior Authorization 09/05/2024 Patient Outreach [facility] [address] [place] [address] Kiel Shaffer MD 09/05/2024 Travel 09/05/2024 Telephone [facility] [address] [place] [address] Kiel Shaffer MD Prior Authorization 09/05/[address] [address] Kiel Shaffer MD Nurse Triage 09/04/2024 Plan of Care Documentation [facility] [address] [place] [address] 09/04/[address] [address] Kiel Shaffer MD Cerebellar mass; Chronic intractable headache, unspecified headache type 09/04/2024 Patient Outreach [facility] [address] [place] [address] Kiel Shaffer MD Care Coordination ([facility] initial assessment/ enrollment) 09/04/2024 Patient Outreach [facility] [address] [place] [address] Kiel Shaffer MD 09/03/2024 5:40 PM EDT Office Visit [facility] [address] [place] [address] Sergio Troy MD Non-recurrent acute suppurative otitis media of left ear without spontaneous rupture of tympanic membrane (Primary Dx) 09/03/2024 Orders Only [facility] [address] [place] [address] Sergio Troy MD 09/03/2024 Travel 08/30/2024 Telephone [facility] [address] [place] [address] Kiel Shaffer MD Referral 08/29/[address] [address] Kiel Shaffer MD Medication Question 08/22/2024 Refill [facility] [address] [place] [address] Katlyn Rodriguez, Bin Type 2 diabetes mellitus with other specified complication, with long-term current use of insulin (CMS/HCC); Type 2 diabetes mellitus with obesity (CMS/HCC) ([facility]/HCC) 08/22/2024 Patient Outreach [facility] [address] [place] [address] Kiel Shaffer MD 08/22/2024 Refill [facility] [address] [place] [address] Kiel Shaffer MD Urticaria 2024 Patient Outreach [facility] [address] [place] [address] Kiel Shaffer MD Care Coordination (C3/CM Outreach) 2024 Refill [facility] [address] [place] [address] Katlyn Rodriguez, AngieD Type 2 diabetes mellitus with other specified complication, with long-term current use of insulin (CMS/[facility]); Type 2 diabetes mellitus with obesity ([facility]/HCC) ([facility]) 08/20/2024 1:45 PM EDT Office Visit [facility] [address] [place] [address] Kiel Shaffer MD Thalamic pain syndrome (Primary Dx) 08/20/2024 Travel 08/20/2024 Patient Outreach [address] [address] Kiel Shaffer MD Care Coordination (C3/CM Chart Review) 08/20/2024 Telephone [facility] [address] [place] [address] Kiel Shaffer MD Appointment Request 08/20/[address] [address] Kiel Shaffer MD ER Follow-up 08/20/[address] [address] Opal Steiner, RN NCNS for FITTING ROOM SUPERVISOR RV today 08/20/2024 Patient Outreach [facility] [address] [place] [address] Kiel Shaffer MD Care Coordination (C3CM Chart review) 08/20/2024 Patient Outreach [facility] [address] [place] [address] Kiel Shaffer MD 08/17/2024 9:20 AM EDT Office Visit [facility] [address] [place] [address] Sarita Baker MD Other chest pain; Gait instability; Hemiparesis of left dominant side as late effect of cerebral infarction (CMS/HCC) 08/17/2024 Telephone [facility] [address] [place] [address] Kiel Shaffer MD Referral 08/17/2024 Telephone [facility] [address] [place] [address] Sarita Baker MD Nurse Triage 08/17/2024 Travel 08/16/[address] [address] Katlyn Rodriguez, PharmD Prior Authorization (CG; Shira 3) 08/16/2024 Travel from Last 3 Months Immunizations Immunization Administration Dates Next Due HepB-CpG 11/05/2022,10/08/2022 Influenza Injectable Quadriv alant Preservative Free IIV4 MDCK 11/05/2022 Influenza Whole 11/06/2010 Influenza injectable quadriv alent IIV4 with preservative 01/09/2016 Influenza injectable quadriv alent preservative free 11/13/2021,01/21/2021,01/07/2020,12/13,01/30/2018 Influenza, IIV3, injectable 02/03/2016,1 ,12/16/2013,02/23,11/02/2012,10/26/2011,01/13/2011 ,11/03/2010,11/21/2009 Influenza, seasonal, injecta ble, preservative free 11/29/2023 Novel [id number], all formulations 05/31/2009 Pneumococcal Conjugate PCV 20 [...] 11/27/2024 10:30 AM EDT Medication Management [address] [address] Katlyn Rodriguez, AngieD [address] [place] [address] 01/28/2025 11:00 AM EST Office Visit [address] [address] Name, MD Kiel [address] [place] [address] 02/04/2025 11:30 AM EST Clinical Support [address] [address] Opal Steiner, RN Health Maintenance Due Date [...] history exists Alcohol/Substance Use Screening 06/28/2025 06/28/2024 SDOH Screening 2025 2024 Depression Screening 09/04/2025 09/04/2024, 09/05/19 25 Tobacco Screening 11/01/2025 11/01/2024 Disability Screening 11/08/2025 11/08/2024 Colonoscopy 07/02/2027 07/01/2022 Colorectal Cancer Screening 07/02/2027 [...] Blood Pressure 144/83(2024 5:13 PM EDT) No Katlyn Rodriguez, PharmD Hemoglobin A1c < 7 Result Component 7.5( 11:12 AM EDT) No Katlyn Rodriguez PharmD Record your blood sugar as directed Result Component No Katlyn Rodriguez PharmD Procedures Procedure Name Priority Date/Time Associated Diagnosis Comments POCT KEELEY-14 URINE DRUG SCREEN Routine 11/15/2024 11:43 AM EDT Long-term current use of opiate analgesic XR HAND 3+ VIEWS LEFT Routine 11/07/2024 12:00 PM EDT Swelling of left hand XR SHOULDER 2+ VIEWS LEFT Routine 11/01/2024 3:06 PM EDT Acute pain of left shoulder XR LUMBAR SPINE 2-3 VIEWS Routine 11/01/2024 2:27 PM EDT XR HAND 3+ VIEWS RIGHT Routine 5 5:17 PM EDT XR WRIST 3+ VIEWS RIGHT Routine 10/07/19 5:12 PM EDT POCT GLYCATED HEMOGLOBIN, TOTAL Routine 10/02/2024 11:12 AM EDT Type 2 diabetes mellitus with other specified complication, with long-term current use of insulin ([facility]) POCT KEELEY-14 URINE DRUG SCREEN Routine 09/19/2024 9:09 AM EDT Long-term current use of opiate analgesic DC REMOVAL IMPACTED CERUMEN INSTRUMENTATION UNILAT Routine 09/05/2024 [...] long-term current use of insulin ([facility]) Rib pain on left side COLONOSCOPY Routine 07/01/2022 4:37 PM EDT DIABETES EYE EXAM Routine 05/26/2022 from Last 3 Months or Most Recently Relevant to Health Maintenance Results * POCT KEELEY-14 Urine Drug Screen (11/15/2024 11:43 AM EDT) Only the most recent of2 resultswithin the time period is included. THC Positive Negative Cocaine Screen, Urine Negative [...] - 11/15/2024 11:43 AM EDT UTOX cup Lot#[id number] Exp. 11/27/25 Internal Pass Control Kiel Shaffer MD POINT OF CARE TEST ENTER/EDIT OR DERABLES Final Result * XR Hand 3+ Views Left (11/07/2024 12:00 PM EDT) Anatomical Region Laterality Modality Upper Extremities, Hand Left Radiogra phic Imaging 11/07/2024 12:0 0 PM EDT Narrative 11/07/2024 12:20 [place] [address] XRay Report Signed Patient: Sarita Puga MR#: [id number] 92 : 1965 Acct:[id number] Age/Sex: 59 / F ADM Date: 11/07/24 Loc: HO.HHCX Attending Dr: Lorenzo Chavez MD Ordering Physician: Lorenzo Chavez MD Date of Service: 11/07/24 Procedure(s): XR hand LT min 3V Accession Number(s): [id number] cc: Lorenzo Chavez MD Reason for Exam: [...] 11/07/24 1217 DD/ 1200 TD/TT: 11/07/24 1202 Manager Of Case Management: Procedure Note Donotuseinterpreter, Image - 11/07/[address] [address] XRay Report Signed Patient: Sarita Puga MMR#: [id number] 92 : 1965Acct:[id number] Age/Sex: 59 / FADM Date: 11/07/24 Loc: .HHCX Attending Dr: Lorenzo Chavez MD Ordering Physician: Lorenzo Chavez MD Date of Service: 11/07/24 Procedure(s): XR hand LT min 3V Accession Number(s): [id number] cc: Lorenzo Chavez MD Reason for Exam: [...] 11/07/24 1217 DD/ 1200 TD/TT: 11/07/24 1202 Manager Of Case Management: Lorenzo Chavez MD IMG XR PROCEDURES Edited Result - Final * XR Shoulder 2+ Views Left (11/01/2024 3:06 PM EDT) Anatomical Region Laterality Modality Upper Extremities, Shoulder Left Radi ographic Imaging 11/01/2024 3:06 PM EDT Narrative 11/01/2024 3:21 PM EDT [facility] [address] [place] [address] XRay Report Signed Patient: Sarita Puga MR#: [id number] 92 : 1965 Acct:[id number] Age/Sex: 59 / F ADM Date: 11/01/24 Loc: .HHCX Attending Dr: Sarita Gonzalez MD Ordering Physician: Sarita Baker MD Date of Service: 11/01/24 Procedure(s): XR shoulder LT min 2V Accession Number(s): [id number] cc: Sarita Baker MD; Name,Kiel BAILEY Reason [...] 11/01/24 1518 DD/ 1506 TD/TT: 11/01/24 1508 Manager Of Case Management: Procedure Note Donotuseinterpreter, Image - 11/01/[address] [address] XRay Report Signed Patient: Sarita Puga MMR#: [id number] 92 : 1965Acct:[id number] Age/Sex: 59 / FADM Date: 11/01/24 Loc: HO.HHCX Attending Dr: Sarita Gonzalez MD Ordering Physician: Sarita Baker MD Date of Service: 11/01/24 Procedure(s): XR shoulder LT min 2V Accession Number(s): [id number] cc: Sarita Baker MD; Name,Kiel BAILEY Reason [...] 11/01/24 1518 DD/ 1506 TD/TT: 11/01/24 1508 Manager Of Case Management: us Sarita Gonzalez MD IMG XR PROCEDURES Fin al Result * XR Lumbar Spine 2-3 Views (11/01/2024 2:27 PM EDT) Only the most recent of2 resultswithin the time period is included. Anatomical Region Laterality Modality Spine, L-spine Radiographic Diana ging 11/01/2024 2:27 PM EDT Narrative 11/01/2024 3:23 PM EDT [address] [address] XRay Report Signed Patient: Sarita Puga MR#: [id number] 92 : 1965 Acct:[id number] Age/Sex: 59 / F ADM Date: 11/01/24 Loc: HO.CX Attending Dr: Sarita Gonzalez MD Ordering Physician: Sarita Baker MD Date of Service: 11/01/24 Procedure(s): XR lumbar spine 2-3V Accession Number(s): [id number] cc: Sarita Baker MD; Name,Kiel BAILEY Reason [...] 11/01/24 1520 DD/ 1427 TD/TT: 11/01/24 1508 Manager Of Case Management: Procedure Note Donotuseinterpreter, Image - 11/01/2024 [facility] [address] [place] [address] XRay Report Signed Patient: Sarita Puga MMR#: [id number] 92 : 1965Acct:[id number] Age/Sex: 59 / FADM Date: 11/01/24 Loc: HO.CX Attending Dr: Sarita Gonzalez MD Ordering Physician: Sarita Baker MD Date of Service: 11/01/24 Procedure(s): XR lumbar spine 2-3V Accession Number(s): [id number] cc: Sarita Baker MD; Name,Kiel BAILEY Reason [...] 11/01/24 1520 DD/ 1427 TD/TT: 11/01/24 1508 Manager Of Case Management: us Sarita Gonzalez MD IMG XR PROCEDURES Fin al Result * XR Hand 3+ Views Right (10/06/2024 5:17 PM EDT) Anatomical Region Laterality Modality Upper Extremities, Hand Right Radiogra phic Imaging 10/06/2024 5:17 PM EDT Narrative 10/06/2024 5:18 PM EDT [place] [address] XRay Report Signed Patient: Sarita Puga MR#: [id number] 92 : 1965 Acct:[id number] Age/Sex: 59 / F ADM Date: 10/06/24 Loc: HO.ED Attending Dr: Ordering Physician: Justina Perez NP Date of Service: 10/06/24 Procedure(s): XR hand RT min 3V Accession Number(s): [id number] cc: Kiel Shaffer MD; Justina Perez NP [...] in OV> 10/06/241717 DD/ 16 TD/TT: 10/06/241716 Manager Of Case Management: Procedure Note Donotuseinterpreter, Image - 10/06/2024 [place] [address] XRay Report Signed Patient: Sarita Puga [facility]#: [id number] 92 : 1965Acct:[id number] Age/Sex: 59 / FADM Date: 10/06/24 Loc: HO.ED Attending Dr: Ordering Physician: Justina Perez NP Date of Service: 10/06/24 Procedure(s): XR hand RT min 3V Accession Number(s): [id number] cc: Name,Kiel BAILEY; Justina Perez NP CLINICAL [...] in OV> 10/06/241717 DD/ 16 TD/TT: 10/06/241716 Manager Of Case Management: [facility] External Provider IMG XR PROCEDURES Edited Result - Final * XR Wrist 3+ Views Right (10/06/2024 5:12 PM EDT) Anatomical Region Laterality Modality Upper Extremities, Wrist Right Radiogr aphic Imaging 10/06/2024 5:12 PM EDT Narrative 10/06/2024 5:14 PM EDT [address] [address] XRay Report Signed Patient: Sarita Puga MR#: [id number] 92 : 1965 Acct:[id number] Age/Sex: 59 / F ADM Date: 10/06/24 Loc: HO.ED Attending Dr: Ordering Physician: Justina Perez NP Date of Service: 10/06/24 Procedure(s): XR wrist RT min 3V Accession Number(s): [id number] cc: Name,Kiel BAILEY; Justina Perez NP CLINICAL [...] in OV> 10/06/241712 DD/ 11 TD/TT: 10/06/241711 Manager Of Case Management: Procedure Note Donotuseinterpreter, Image - 10/06/[address] [address] XRay Report Signed Patient: Sarita Puga MMR#: [id number] 92 : 1965Acct:[id number] Age/Sex: 59 / FADM Date: 10/06/24 Loc: HO.ED Attending Dr: Ordering Physician: Justina Perez NP Date of Service: 10/06/24 Procedure(s): XR wrist RT min 3V Accession Number(s): [id number] cc: Name,Kiel BAILEY; Justina Perez NP CLINICAL [...] in OV> 10/06/241712 DD/ 11 TD/TT: 10/06/241711 Manager Of Case Management: [facility] External Provider IMG XR PROCEDURES Edited Result - Final * (ABNORMAL) POCT HGB A1C (10/02/2024 11:12 AM EDT) Hemoglobin A1C 7.5(A) 4.0 - 5.7 % Blood 10/02/2024 11:1 2 AM EDT Kiel Shaffer MD POINT OF CARE TEST ENTER/EDIT OR DERABLES Final Result * DC REMOVAL IMPACTED CERUMEN INSTRUMENTATION UNILAT (09/05/2024 11:12 [...] Alternatives discussed: No treatment and delayed treatment [place] protocol: Patient identity confirmed: Verbally with patient [...] PM EDT Narrative 08/22/2024 12:12 PM EDT [place] [address] Ultrasound Report Signed Patient: Sarita Puga MR#: [id number] 92 : 1965 Acct:[id number] Age/Sex: 59 / F ADM Date: 08/21/24 Loc: HO.US Attending Dr: Cherelle ROMO Ordering Physician: Cherelle Trujillo Date of Service: 08/21/24 Procedure(s): US renal BI Accession Number(s): [id number] cc: Cherelle Trujillo; Name,Kiel BAILEY CLINICAL HISTORY: [...] in OV> 08/22/24 1212 DD/ 1211 TD/TT: 08/22/241210 Manager Of Case Management: Procedure Note Jung Bañuelos - 08/22/2024 [place] [address] Ultrasound Report Signed Patient: Sarita Puga MMR#: [id number] 92 : 1965Acct:[id number] Age/Sex: 59 / FADM Date: 08/21/24 Loc: HO.US Attending Dr: Cherelle ROMO Ordering Physician: Cherelle Trujillo Date of Service: 08/21/24 Procedure(s): US renal BI Accession Number(s): [id number] cc: Cherelle Trujillo; Name,Kiel BAILEY CLINICAL HISTORY: [...] in OV> 08/22/24 1212 DD/ 1211 TD/TT: 08/22/241210 Manager Of Case Management: us [facility] External Provider IMG US PROCEDURES Final Result * ECG 12 lead (2024 1:14 PM EDT) Narrative Sarita Baker MD - 2024 1:14 PM EDT NSR us Mary Adenike Gonzalez MD ECG ORDERABLES Final Result * CT Head w/o Contrast (08/17/2024 10:10 AM EDT) Anatomical Region Laterality Modality Head, Neck Computed Tomogra phy 08/17/2024 10:1 0 AM EDT Narrative 08/17/2024 11:32 AM EDT [place] [address] CT Scan Report Signed Patient: Sarita Puga MR#: [id number] 92 : 1965 Acct:[id number] Age/Sex: 58 / F ADM Date: 08/17/24 Loc: HO.ED Attending Dr: Ordering Physician: Natalie Martell Date of Service: 08/17/24 Procedure(s): CT head/brain wo IV con Accession Number(s): [id number] cc: Natalie Martell; Name,Kiel BAILEY Report Number: [id number]: Total DLP = 756.00 mGy-cm EXAMINATION: CT [...] 08/17/24 1130 DD/ 1010 TD/TT: 08/17/24 1120 Manager Of Case Management: Procedure Note Donotuseinterpreter, Image - 08/17/[address] [place] [address] [address] Scan Report Signed Patient: Sarita Puga MMR#: [id number] 92 : 1965Acct:[id number] Age/Sex: 58 / FADM Date: 08/17/24 Loc: HO.ED Attending Dr: Ordering Physician: Natalie Martell Date of Service: 08/17/24 Procedure(s): CT head/brain wo IV con Accession Number(s): [id number] cc: Natalie Martell; Name,Kiel BAILEY Report Number: [id number]: Total DLP = 756.00 mGy-cm EXAMINATION: CT [...] 08/17/24 1130 DD/ 1010 TD/TT: 08/17/24 1120 Manager Of Case Management: [facility] External Provider IMG CT PROCEDURES Final Result * XR Femur 2+ Views Right (08/17/2024 10:02 AM EDT) Anatomical Region Laterality Modality Lower Extremities, Femur Right Radiogr aphic Imaging 08/17/2024 10:0 2 AM EDT Narrative 08/17/2024 11:23 AM EDT [address] [address] XRay Report Signed Patient: Sarita Puga MR#: [id number] 92 : 1965 Acct:[id number] Age/Sex: 58 / F ADM Date: 08/17/24 Loc: HO.ED Attending Dr: Ordering Physician: Natalie Martell Date of Service: 08/17/24 Procedure(s): XR femur RT 2V Accession Number(s): [id number] cc: Natalie Martell; Name,Kiel BAILEY EXAMINATION: XR [...] 08/17/24 1120 DD/ 1002 TD/TT: 08/17/24 1113 Manager Of Case Management: Procedure Note Donotuseinterpreter, Image - 08/17/[address] [address] XRay Report Signed Patient: Sarita Puga [facility]#: [id number] 92 : 1965Acct:[id number] Age/Sex: 58 / FADM Date: 08/17/24 Loc: HO.ED Attending Dr: Ordering Physician: Natalie Martell Date of Service: 08/17/24 Procedure(s): XR femur RT 2V Accession Number(s): [id number] cc: Natalie Martell; Name,Kiel BAILEY EXAMINATION: XR [...] 08/17/24 1120 DD/ 1002 TD/TT: 08/17/24 1113 Manager Of Case Management: us [facility] External Provider IMG XR PROCEDURES Final Result * XR Chest 2 Views (08/17/2024 9:56 AM EDT) Anatomical Region Laterality Modality Chest Radiographic Diana ging 08/17/2024 9:56 AM EDT Narrative 08/17/2024 11:20 AM EDT [address] [address] XRay Report Signed Patient: Sarita Puga MR#: [id number] 92 : 1965 Acct:[id number] Age/Sex: 58 / F ADM Date: 08/17/24 Loc: .ED Attending Dr: Ordering Physician: Natalie Martell Date of Service: 08/17/24 Procedure(s): XR chest 2V Accession Number(s): [id number] cc: Natalie Martell; Name,Kiel BAILEY EXAMINATION: XR [...] 08/17/24 1117 DD/ 0956 TD/TT: 08/17/24 1113 Manager Of Case Management: Procedure Note Donotuseinterpreter, Image - 08/17/[address] [address] XRay Report Signed Patient: Sarita Puga MMR#: [id number] 92 : 1965Acct:[id number] Age/Sex: 58 / FADM Date: 08/17/24 Loc: HO.ED Attending Dr: Ordering Physician: Natalie Martell Date of Service: 08/17/24 Procedure(s): XR chest 2V Accession Number(s): [id number] cc: Natalie Martell; Name,Kiel BAILEY EXAMINATION: XR [...] 08/17/24 1117 DD/ 0956 TD/TT: 08/17/24 1113 Manager Of Case Management: [facility] External Provider IMG XR PROCEDURES Final Result * (ABNORMAL) Lipid Panel with Reflex to Direct LDL (06/18/2024 8:18 AM EDT) Triglycerides 156(H) <150 mg/dL [facility] Comment:Desirable Triglyceri de: less than 150 mg/dLBorderline High Triglyceride 150-199 mg/dLHigh Triglyceride: 200-499 mg/dLVery High Triglyceride: greater than or equal to 5OO mg/dL Cholesterol 185 <200 mg/dL [facility] Comment:Desirable Cholestero l: less than 200 mg/dLBorderline High Cholesterol: 200-239 mg/dLHigh Cholesterol: greater than 239 mg/dL LDL Cholesterol Calculated 109(H) <100 mg/dL [facility] Comment:Desirable LDL: less than 100 mg/dLNear Optimal/Above Optimal LDL: 110- 129 mg/dLBorderline High LDL: 130-159 mg/dLHigh LDL: 160-189 mg/dLVery High LDL: greater than or equal to 190 mg/dL HDL Cholesterol 45 >40 mg/dL [facility] Comment:Desirable HDL: great er than 40 mg/dL Note: This HDL assay may give artificially low results in patients with liver disease. 06/18/2024 8:18 AM EDT 06/18/2024 11:00 AM EDT Kiel Shaffer MD LAB BLOOD ORDERABLES Final Resul t Performing Organization Address City/State/[facility] Co de Phone Number [facility] [address] [place] [phone] * BI Mammogram Screening Tomosynthesis Bilateral (06/03/2023 8:45 AM EDT) Anatomical Region Laterality Modality Breast Bilateral Mammography 06/03/2023 8:45 AM EDT Narrative 06/30/2023 10:24 PM EDT [facility] [address] [place] [address] Mammography Report Signed Patient: Sarita Puga MR#: [id number] 92 : 1965 Acct:[id number] Age/Sex: 57 / F ADM Date: 06/03/23 Loc: HO.MAMMO Attending Dr: Kiel Shaffer MD Ordering Physician: Kiel Shaffer MD Results: 1Negative Date of Service: 06/03/23 Follow Up: 1 Year From Orig inal Mammogram Procedure(s): MM tomosynthesis screening BI Accession Number(s): [id number] cc: Kiel Shaffer MD EXAMINATION: MM SCREENING [...] MD in OV> 06/30/232219 DD/ 0845 TD/TT: Manager Of Case Management: Procedure Note Donotuseinterpreter, Image - 06/30/2023 [facility] [address] [place] [address] Mammography Report Signed Patient: Sarita Puga MMR#: [id number] 92 : 1965Acct:[id number] Age/Sex: 57 / FADM Date: 06/03/23 Loc: CARM[place] Attending Dr: Kiel Shaffer MD Ordering Physician: Kiel Shaffer MDResults: 1Negative Date of Service: 06/03/23Follow Up: 1 Year From Orig inal Mammogram Procedure(s): MM tomosynthesis screening BI Accession Number(s): [id number] cc: Kiel Shaffer MD EXAMINATION: MM SCREENING [...] MD in OV> 06/30/230 DD/ 0845 TD/TT: Manager Of Case Management: us Kiel Shaffer MD IMG BI PROCEDURES Edited Result - Final * Albumin, Random Urine W/Creatinine (05/26/2023 8:27 AM EDT) Creatinine, Urine 185.88 mg/dL [facility] Microalbumin Urine 23.0 mg/L [facility] Microalbum Creatinine Ratio Ur 12.3 <30 ug/mg cr [facility] Comment:Albumin/Creatinine R atio Reference Ranges: Normal: < 30 ug/mg creatinine Microalbuminuria: 30 - 300 ug/mg creatinineClinical Albuminuria: > 300 ug/mg creatinine Urine (Urine, Random) 05/26/2023 8:27 AM EDT 05/26/2023 11:19 AM EDT Result Rosita Shaffer MD LAB URINE ORDERABLES Final Resul t [facility] [address] [place] [phone] * Colonoscopy (07/01/2022 4:37 PM EDT) Colonoscopy Normal Normal Narrative Emely Devine - 07/01/2022 4:37 PM EDT Recommended 5 year follow up ([facility] us Glo Chong MD HEALTH MAINTENANCE Final Result * Diabetes Eye Exam (05/26/2022) Eye Exam Normal Normal us Kiel Shaffer MD HEALTH MAINTENANCE Final Result from Last 3 Months or Most Recently Relevant to Health Maintenance Insurance [place] [address] [place] [address] [place] [employer] Care Teams Electroless Plater Relationship Specialty Start Date End Date Name, MD Kiel [address] [place] [address] PCP - General Family Medicine 07/15/15 Katlyn Rodriguez, Bin [address] [place] [address] Pharmacist Internal Medicine 10/08/22 Ania Spencer 08/20/24 Opal Leyva Registered Nurse 10/29/24 Marta Ovalle Director Of PlanningMachine Ii Trimmer 05/25/23
--- OUTSIDE RECORDS SUMMARY | 2024-11-16 13:24 | XMS_ITS | Encounter Summary ---
Author Organization [employer] Address [address] [place] [address] Care Team Providers Care Health Care Law Specialist Name Role Phone Name, Kiel BAILEY Primary Care Provider [phone] Katlyn Rodriguez PharmD Unavailable [phone] Ania Spencer Unavailable Opal Leyva Unavailable [phone] Encounter Details Date Type Department Care Team (Late st Contact Info) Description 11/12/2024 Telephone [facility] [address] [place] [address] Barbara Martinez MA Social History Tobacco Use Types Packs/Day Years [...] Telephone Encounter - Meghan Ramirez RN - 11/12/2024 3:33 PM EDT No recent ed notes available in [facility] Pt recently evaluated by [facility] Ortho and recommended to f/u withthem on 11/16/24. T/C to pt via [employer] #[id number]. Pt states that her hand is really hurting and she was advised to f/u with pcp. Advised no pcp appointment available. Recommended that pt call [facility] Ortho for recommendation or proceed to ED if pain is severe. Pt reports agreement with plan. * Telephone Encounter - Barbara Martinez MA - 11/12/2024 2:06 PM EDT PT States she needs a hospital f/u appointment due for her being at the hospital , pt states she was not admitted but needs a appointment documented in this encounter Plan of Treatment Upcoming Encounters Date Type Department Care Team (Late st Contact Info) Description 11/27/2024 10:30 AM EDT Medication Management [facility] [address] [place] [address] Puia, Katlyn, PharmD [facility] [place] [address] 01/28/2025 11:00 AM EST Office Visit [address] [place] [address] Name, [place] [address] 02/04/2025 11:30 AM EST Clinical Support [address] [place] [address] Opal Steiner, MARINA documented as of this [...] documented as of this encounter Care Teams Health Care Law Specialist Relationship Specialty Start Date End [place] [address] PCP - General Family Medicine 07/15/15 Puia, Katlyn, [place] [address] Pharmacist Internal Medicine 10/08/22 Ania Spencer 08/20/24 Opal Leyva Registered Nurse 10/29/24 Marta Ovalle Family AdvocateMorphologist 05/25/23 documented as of this encounter
--- OUTSIDE RECORDS SUMMARY | 2024-11-16 13:24 | XMS_ITS | Encounter Summary ---
Author Organization [employer] Address [address] [place] [address] [address] [place] [address] Care Team Providers Care Sole Blacker Name Role Phone Name, Kiel BAILEY Primary Care Provider [phone] Katlyn Rodriguez PharmD Unavailable [phone] Nehal Ann RN Unavailable [phone] Ania Spencer Unavailable Opal Leyva Unavailable [phone] Reason for Referral * Consultation (Routine) - Closed Specialty Diagnoses / Procedures Referred By [place] t Referred To Contact Occupational Therapy Diagnoses Weakness of both lower extremities Hemiparesis of left dominant side as late effect of cerebral infarction (CMS/HCC) Lizzie Alfaro NP [address] [place] [address] Phone: tel: fax: [facility] [address] [place] [address] Phone: tel: fax: Referral ID Status Reason Start Date Expiration Date V isits Requested Visits Authorized [id number] Closed Specialty Services Required 09/06/2024 09/06/2025 20 20 * Consultation (Routine) - Closed Specialty Diagnoses / Procedures Referred By Carroll hoover Referred To Contact Physical Therapy Diagnoses Weakness of both lower extremities Lizzie Alfaro NP [address] [place] [address] Phone: tel: fax: [facility] [address] [place], [place] Phone: tel: fax: Referral ID Status Reason Start Date Expiration Date V isits Requested Visits Authorized [id number] Closed Specialty Services Required 09/06/2024 09/06/2025 20 20 Encounter Details Date Type Department Care Team (Late st Contact Info) Description 09/06/2024 Orders Only [facility] MED[facility]INE [address] [place] [address] Lizzie Alfaro NP [address] [place], [place] [phone] Weakness of both lower extremities (Primary Dx); [...] Description 11/27/2024 10:30 AM EDT Medication Management [address] [address] Puia, Katlyn, PharmD [address] [place] [address] 01/28/2025 11:00 AM EST Office Visit [address] [address] Name, MD Kiel [address] [place] [address] 02/04/2025 11:30 AM EST Clinical Support [address] [address] Opal Steiner, RN Scheduled Referrals Name Type [...] Component 7.5( 5 11:12 AM EDT) No Katlyn Rodriguez PharmD [...] documented as of this encounter Care Teams Sole Blacker Relationship Specialty Start Date End Date Name, MD Kiel [address] [place] [address] PCP - General Family Medicine 07/15/15 Katlyn Rodriguez PharmD [address] [place] [address] Pharmacist Internal Medicine 10/08/22 Nehal Ann RN [address] [place] [address] Registered Nurse Family Medicine 08/20/24 10/29/24 Ania Spencer 08/20/24 Opal Leyva Registered Nurse 10/29/24 Marta Ovalle Gaming InvestigatorHand Candy Cutter 05/25/23 documented as of this encounter
== END 2024-11-16 12:13 | disposition home or self-care (01) ==
LOC: HO.HOS 11:29
DX: S52.514A Nondisplaced fracture of right radial styloid process, initial encounter for closed fracture (principal); M79.641 Pain in right hand
CPT/HCPCS: 99024

== ENCOUNTER → 2024-11-16 11:32 | Outpatient (BNV) | payer MEDICAID, SELFPAY | PROVIDERS: Visit Provider Radiology Diagnostic Radiology | DX: S52.511K Displaced fracture of right radial styloid process, subsequent encounter for closed fracture with nonunion (principal) | CPT/HCPCS: 73110 ==

== ENCOUNTER 2024-11-30 09:49 | Outpatient (REF) | payer MEDICAID, SELFPAY ==
--- OUTSIDE RECORDS SUMMARY | 2023-11-24 09:53 | XMS_ITS | Encounter Summary ---
Author Organization [facility] Address [address] [place] [address] Care Team Providers Care Thread Grinder Name Role Phone Name, Kiel BAILEY Primary Care Provider [phone] Encounter Details Date Type Department Care Team (Late st Contact Info) Description 11/24/2023 9:53 AM EDT Hospital Encounter TH HISTORIC ENCOUNTERS EASTERN CONVERSION ONLY Geoffrey-Art Vitale MD [address] [place] [address] Social History Tobacco Use Types Packs/Day [...] 02/05/2024 6:47 AM Rosy New RN * [place] Suicide Severity Rating Scale (Screener/Recent Self-Report) Question [...] 2:17 PM Encounter Date: 11/24/2023 Status: Signed Supervisor Color Paste Mixing: Art Davis MD (Physician) CHIEF COMPLAINT: Chief Complaint Patient presents with ? Follow-up Diffuse large B-cell lymphoma Stage III Completed 6 cycles of R-CHOP in July 23, 2018 IDENTIFIER:Sarita Puga is a 58 y.o. female. HPI: The patient returns for follow up of Large B-cell lymphoma. Here with her daughter , who is polish to estonian school speech language pathologist Patient reports that she has been doing [...] accompanied by her daughter and girlfriend. As Portuguese to Bahraini school speech language pathologist assisted with the discussion. She had a [...] AM EST Office Visit Orthopedic Surgery - [place] [address] [phone] Wesley Garcia DPM [address] [phone] documented as of this encounter Procedures Procedure [...] documented as of this encounter Care Teams Thread Grinder Relationship Specialty Start Date End Date Name, MD Kiel 4 [place], [place] PCP - General Internal Medicine 08/28/15 documented as of this encounter
--- OUTSIDE RECORDS SUMMARY | 2023-11-24 10:30 | XMS_ITS | Encounter Summary ---
Author Organization [facility] Address [address] [place] [address] Care Team Providers Care Elementary School Social Worker Name Role Phone Name, Kiel BAILEY Primary Care Provider [phone] Encounter Details Date Type Department Care Team (Late st Contact Info) Description 11/24/2023 10:30 AM EDT Hospital Encounter TH HISTORIC ENCOUNTERS EASTERN CONVERSION ONLY Geoffrey-Art Vitale MD [address] [place] [address] Social History Tobacco Use Types Packs/Day [...] 02/05/2024 6:47 AM Rosy New RN * [place] Suicide Severity Rating Scale (Screener/Recent Self-Report) Question [...] AM EST Office Visit Orthopedic Surgery - [place] [address] [phone] Wesley Garcia DPM [address] [phone] documented as of this encounter Visit Diagnoses Not on filedocumented in this encounter Additional Health Concerns Infection Onset Date Last Indicated Resolved Time Respiratory Rule-Out 02/05/2024 02/05/2024 024 8:09 AM EST COVID-19 Rule-Out 02/05/2024 02/05/2024 02/05/2024 8:09 AM EST documented as of this encounter Care Teams Elementary School Social Worker Relationship Specialty Start Date End Date Name, MD Kiel 4 [place], [place] PCP - General Internal Medicine 08/28/15 documented as of this encounter
--- OUTSIDE RECORDS SUMMARY | 2024-11-30 10:34 | XMS_ITS | Encounter Summary ---
Author Organization [facility] Address [address] [place] [address] Phone Care Team Providers Care Executive Creative Director Name Role Phone Unavailable Primary Care Provider Unavailabl e Encounter Details Date Type Department Care Team (Latest Contact Info) Description 01/04/2020 Ancillary Orders [facility] [address] [place] [address] [place] [address] Bright Jesus, DO [address] [place] [phone] Chest pain, unspecified type Social History Tobacco [...] It is not the complete legal health record.[facility]
--- OUTSIDE RECORDS SUMMARY | 2024-11-30 10:34 | XMS_ITS | Clinical Summary ---
Author Organization [facility] Address [address] [place] [address] [place] [phone] Phone Care Team Providers Care Seasoner Name Role Phone Unavailable Primary Care Provider [...] Devices Not on file Insurance [employer] [place] [address] [place] [address] [place] [address] [place] [address] [place] [address] [place] [address] [place] [address] [place] [address] C3 A[employer] A[employer] Additional Source Comments The information contained in this document represents components of the legal health record. It is not the complete legal health record.[facility]
--- OUTSIDE RECORDS SUMMARY | 2024-11-30 10:34 | XMS_ITS | Encounter Summary ---
Author Organization [facility] Address [address] [place] [address] Care Team Providers Care Silk Hanger Name Role Phone Name, Kiel BAILEY Primary Care Provider [phone] Encounter Details Date Type Department Care Team Description 09/10/2022 Social Work [facility] [address] [place] [address] Adina Archer, [facility] Social History Tobacco Use [...] on filedocumented in this encounter Care Teams Silk Hanger Relationship Specialty Start Date End Date Name, MD Kiel [address] [place] [address] [address] [place] [address] PCP - General Internal Medicine 04/17/18 documented as of this encounter
--- OUTSIDE RECORDS SUMMARY | 2024-11-30 10:34 | XMS_ITS | Clinical Summary ---
Author Organization 175 [facility] Address [address] [place] [address] Phone Care Team Providers Care Spray I Painter Name Role Phone Name, Kiel BAILEY Primary Care Provider [phone] Allergies Active Allergy Reactions Criticality Noted Date [...] Active medical supply, miscellaneous (MISCELLANEOUS MEDICAL SUPPLY [facility] [place] [facility]) ULTICARE SHORT PEN NEEDLES 31G X 8 MM USE FOUR TIMES DAILY TO INJECT insulin WITH A MEAL AND AT BEDTIME 06/23/19 16 Active blood sugar diagnostic (FreeStyle Lite Strips) test strip USE TO TEST FINGER STICK BLOOD SUGAR TWICE DAILY DIRECTED 06/23/19 16 Active medical supply, miscellaneous (MISCELLANEOUS MEDICAL SUPPLY MISC) [facility] [place]. DEVICES (COMMODE BEDSIDE) MIS 1 Device by Does not apply route as needed (voiding/bm). 12/11/19 15 Active ASPIRIN ORAL Take 1 Tab by mouth daily. 11/28/19 15 Active lancets (Sure Comfort Lancets) 30 gauge [facility] USE TO TEST FINGER STICK BLOOD SUGAR [...] Problem Noted Date Diagnosed Date COPD exacerbation ([facility] V24, [facility] V28) Abnormal nuclear stress test 11/06/2014 Rib fracture 12/24/2013 Overview (12/12/2023): Non displaced, probable froacture on the right ninth and tenth Abdominal pain 08/15/2013 Lipoma of abdominal wall 11/02/2011 Visual field defect 03/29/2011 Cocaine abuse, episodic use ([facility] V24, [facility] V28) 06/17/2010 Low back pain radiating to left leg 10/08/2009 Overview (12/12/2023): The patient follows with [facility] and is treated with injections to the LS. Asthmatic bronchitis , chronic ([facility] V24, [facility] V28) 07/07/2009 Overview (12/12/2023): Severe and worse in the spring. Last hospitalazion in May and 3 ER visits Hospital 08/02 Known medical problems 06/05/2009 Tobacco use disorder 06/05/2009 Hypertriglyceridemia 06/05/2009 Morbid obesity ([facility] V24, [facility] V28) 2009 Overview (12/12/2023): BMI 48.37 on 11/15/13 Depression 06/05/2009 Immunizations Immunization Administration Dates Next Due Influenza trivalent, 0.5mL, [...] TOTAL HYSTERECTOMY WITH BSO; COMMENT: for bleeding, [facility] Medical History Medical History Date Comments Type II or unspecified type diabetes mellitus with unspecified complication, not stated as uncontrolled DX:Type II or unspecified t ype diabetes mellitus with unspecified complication, not stated as uncontrolled Unspecified essential hypertension DX:Unspecified essential hypertension Tobacco abuse DX:Tobacco abuse RAD (reactive airway disease) DX :RAD (reactive airway disease) Morbid obesity ([facility] V24, [facility] V28) DX:Morbid obesity ([facility]) Asthmatic bronchitis , chron ic ([facility] V24, [facility] V28) 07/07/2009 DX:Asthmatic bronchitis , ch ronic ([facility]) Hypertriglyceridemia 06/05/2009 DX:Hypertri glyceridemia Rib fracture 12/24/2013 DX:Rib fracture Family History Medical History Relation Name Comments Blindness Brother 1 Breast cancer Maternal Grandmother Cataracts Maternal Grandmother Blindness Mother Glaucoma Neg Hx Macular degeneration Neg Hx Strabismus Neg Hx Relation Name Status Comments Brother 1 Brother 2 SD Brother 3 Alive 6 brothers are diabetic [...] AM EST Office Visit Orthopedic Surgery - [place] [address] [phone] Wesley Garcia, [place] [address] [phone] Health Maintenance Due Date Last Done Comments Breast Cancer Screening 1965 Colorectal Cancer Screening: Colonoscopy 1965 Diabetes: Annual Foot Exam 08/22/1975 Diabetes: Annual Retina Eye Exam 08/22/1975 Hepatitis A Vaccines (1 of 2 - Risk 2-dose series) 1984 Cervical Cancer Screening: Pap Smear 1986 HIV Screening 01/29/2022 Social Influencers of Health [...] exists Hepatitis B Vaccines Completed 11/05/2022, 10/09/19 HIB Vaccines Aged Out No longer eligi [...] mmol/L LAB CHEMISTRY METHOD 02/06/2024 3:36 AM [facility] Potassium 4.1 3.5 - 5.5 mmol/L LAB CHEMISTRY METHOD 02/06/2024 3:36 AM [facility] Chloride 104 96 - 110 mmol/L LAB CHEMISTRY METHOD 02/06/2024 3:36 AM [facility] CO2 23 21 - 32 mmol/L LAB CHEMISTRY METHOD 02/06/2024 3:36 AM [facility] Anion Gap 9 3 - 11 LAB CHEMISTRY METHOD 02/06/2024 3:36 AM [facility] Glucose 244(H) 70 - 100 mg/dL LAB CHEMISTRY METHOD 02/06/2024 3:36 AM [facility] BUN 17 5 - 25 mg/dL LAB CHEMISTRY METHOD 02/06/2024 3:36 AM [facility] Creatinine 0.71 0.50 - 1.10 mg/dL LAB CHEMISTRY METHOD 02/06/2024 3:36 AM [facility] eGFR 99 >=60 mL/min/1. 73m2 LAB CHEMISTRY METHOD 02/06/2024 3:36 AM EST [facility] Comment:Calculation based on the Chronic Kidney Disease Epidemiology Collaboration (CKD-EPI) equation refit without adjustment for race. BUN/Creatinine Ratio 23.9 LAB CHEMISTRY METHOD 02/06/2024 3:36 AM EST [facility] Calcium 9.3 8.5 - 10.5 mg/dL LAB CHEMISTRY METHOD 02/06/2024 3:36 AM EST [facility] Blood Venous blood specimen / Unknown Venipuncture / Unknown 02/06/2024 2:59 AM EST 02/06/2024 3:13 AM EST Result [facility] Cindy SEGURA LAB BLOOD ORDERABLES Final R esult [facility] [address] [place] [address], * (ABNORMAL) Hemoglobin A1c (11/20/2014) Pathologist [facility] Hemoglobin A1C 7.5(A) 4.0 - 6.0 % Blood Venous blood specimen / Unknown Result [facility] Historical Provider LAB BLOOD ORDERABLES Alis l Result * Urine Albumin Creatinine Ratio (05/10/2014) Pathologist [facility] Urine Albumin Creatinine Ratio abstracted Result [facility] Historical Provider HEALTH MAINTENANCE Final Result * (ABNORMAL) Lipid panel (05/10/2014) [facility] LDL/HDL Ratio 4 0 - 4 Triglycerides 360(A) 0 - 150 mg/dL Cholesterol 179 0 - 200 mg/dL HDL 42 >=40 mg/dL LDL Cholesterol 65 0 - 100 mg/dL Blood Venous blood specimen / Unknown Result [facility] Historical Provider LAB BLOOD ORDERABLES Alis l Result * Hepatitis C Screening (10/10/2013) Pathologist [facility] Hepatitis C Screening abstracted us Historical Provider [...] currently active code status orders. Care Teams Spray I Painter Relationship Specialty Start Date End Date Name, MD Kiel [address] [place], [place] PCP - General Internal Medicine 08/28/15
--- OUTSIDE RECORDS SUMMARY | 2024-11-30 10:34 | XMS_ITS | Encounter Summary ---
Author Organization [facility] Address [address] [place] [address] Phone Care Team Providers Care Denture Technician Name Role Phone Unavailable Primary Care Provider Unavailabl e Encounter Details Date Type Department Care Team (Late st Contact Info) Description 01/04/2020 Procedure Pass [facility] [address] [place] [address] [place], [place] [id number] Social History Tobacco Use Types Packs/Day Years [...] It is not the complete legal health record.[facility]
--- OUTSIDE RECORDS SUMMARY | 2024-11-30 10:34 | XMS_ITS | Clinical Summary ---
Author Organization [facility] Address [address] [place] [address] Care Team Providers Care Inventory Worker Name Role Phone Name, Kiel BAILEY Primary Care Provider [phone] Allergies Active Allergy Reactions Criticality Noted Date [...] age to complete this topic Care Teams Inventory Worker Relationship Specialty Start Date End Date Name, MD Kiel [address] [facility] [address] [place] [address] PCP - General Internal Medicine 04/17/18
[2024-11-30 12:38] LABS: Alanine Aminotransferase 21 U/L (0-31); Albumin Level 4.4 g/dL (3.5-5.0); Alkaline Phosphatase 75 U/L (39-117); Aspartate Amino Transferase 23 U/L (5-31); Cholesterol 151 mg/dL (<200); HDL Cholesterol 36 mg/dL (>40); Total Protein 6.9 g/dL (6.5-8.0); Triglycerides 122 mg/dL (<150)
== END 2024-11-30 09:50 | disposition home or self-care (01) ==
LOC: HO.HHCL 09:49
PROVIDERS: PCP Internal Medicine Geriatric Medicine; Visit Provider Internal Medicine Geriatric Medicine
DX: E11.69 Type 2 diabetes mellitus with other specified complication (principal); E78.1 Pure hyperglyceridemia; Z79.4 Long term (current) use of insulin
CPT/HCPCS: 36415; 80061; 80076

== ENCOUNTER → 2024-12-06 18:38 | Outpatient (BNV) | payer MEDICAID, SELFPAY | PROVIDERS: PCP Internal Medicine Geriatric Medicine; Visit Provider Radiology Diagnostic Radiology | DX: S52.511A Displaced fracture of right radial styloid process, initial encounter for closed fracture (principal); M25.431 Effusion, right wrist; R60.0 Localized edema | CPT/HCPCS: 73221 ==

== ENCOUNTER 2024-12-06 18:39 | Outpatient (REF) | payer MEDICAID, SELFPAY ==
--- OUTSIDE RECORDS SUMMARY | 2023-11-24 09:53 | XMS_ITS | Encounter Summary ---
Author Organization [facility] Address [address] [place] [address] Care Team Providers Care Hygiene Teacher Name Role Phone Name, Kiel BAILEY Primary Care Provider [phone] Encounter Details Date Type Department Care Team (Late st Contact Info) Description 11/24/2023 9:53 AM EDT Hospital Encounter TH HISTORIC ENCOUNTERS EASTERN CONVERSION ONLY Geoffrey-Art Vitale MD [address] [place] [address] Social History Tobacco Use Types Packs/Day [...] 02/05/2024 6:47 AM Rosy New RN * [place] Suicide Severity Rating Scale (Screener/Recent Self-Report) Question [...] 2:17 PM Encounter Date: 11/24/2023 Status: Signed Restrooms Or Lounges Maid: Art Davis MD (Physician) CHIEF COMPLAINT: Chief Complaint Patient presents with ? Follow-up Diffuse large B-cell lymphoma Stage III Completed 6 cycles of R-CHOP in July 23, 2018 IDENTIFIER:Sarita Puga is a 58 y.o. female. HPI: The patient returns for follow up of Large B-cell lymphoma. Here with her daughter , who is maori to welsh case managers Patient reports that she has been doing [...] accompanied by her daughter and girlfriend. As Slovak to Danish case managers assisted with the discussion. She had a [...] AM EST Office Visit Orthopedic Surgery - [place] [address] [phone] Wesley Garcia DPM [address] [phone] documented as of this encounter Procedures Procedure [...] documented as of this encounter Care Teams Hygiene Teacher Relationship Specialty Start Date End Date Name, MD Kiel 4 [place], [place] PCP - General Internal Medicine 08/28/15 documented as of this encounter
--- OUTSIDE RECORDS SUMMARY | 2023-11-24 10:30 | XMS_ITS | Encounter Summary ---
Author Organization [facility] Address [address] [place] [address] Care Team Providers Care National Sales Representative Name Role Phone Name, Kiel BAILEY Primary Care Provider Encounter Details Date Type Department Care Team (Late st Contact Info) Description 11/24/2023 10:30 AM EDT Hospital Encounter TH HISTORIC ENCOUNTERS EASTERN CONVERSION ONLY Geoffrey-Art Vitale MD [address] [place] [address] Social History Tobacco Use Types Packs/Day [...] 02/05/2024 6:47 AM Rosy New RN * [place] Suicide Severity Rating Scale (Screener/Recent Self-Report) Question [...] AM EST Office Visit Orthopedic Surgery - [place] [address] [phone] Wesley Garcia DPM [address] [phone] documented as of this encounter Visit Diagnoses Not on filedocumented in this encounter Additional Health Concerns Infection Onset Date Last Indicated Resolved Time Respiratory Rule-Out 02/05/2024 02/05/2024 024 8:09 AM EST COVID-19 Rule-Out 02/05/2024 02/05/2024 02/05/2024 8:09 AM EST documented as of this encounter Care Teams National Sales Representative Relationship Specialty Start Date End Date Name, MD Kiel 4 [place], [place] PCP - General Internal Medicine 08/28/15 documented as of this encounter
--- NOTE | ~2024-12-06 | MR_ITS ---
CLINICAL HISTORY: M79.643 - Pain in unspecified hand. Significant snuffbox tenderness of R wrist MR right wrist without contrast Comparison: DX/SR - XR WRIST NAVICULAR RIGHT - 11/16/24 11:32 EDT DX/SR - XR WRIST NAVICULAR RIGHT - 10/26/24 14:40 EDT DX/SR - XR WRIST 3 OR MORE VIEWS RIGHT - 10/17/24 11:30 EDT CR - XR WRIST RT MIN 3V - 10/06/24 15:51 EDT Findings: Fracture of the styloid process of the distal radius. Bone marrow edema in the carpal bones, most prominent in the scaphoid and trapezoid, however also involving the trapezium, lunate, capitate and hamate. The musculature is normal in signal and bulk. Unremarkable vessels. Mild negative ulnar variance. The distal radioulnar joint is intact. There is no carpal instability. Small distal radial ulnar joint effusion. Trace carpal joint effusion. There is fluid in the pre styloid recess. There is increased signal in the scapholunate and lunotriquetral without discontinuity. There is increased signal in the triangular fibrocartilage complex with suspected of discontinuity of the triangular ligament. Normal extensor compartment. Enlarged median nerve measuring 0.7 x 0.5 cm. There is mild increased signal and flexor digitorum profundus and superficialis without tear. Otherwise normal carpal tunnel, flexor retinaculum, flexor tendons and Guyon canal. Preserved first carpometacarpal, scaphotrapezotrapezoidal and pisiform-triquetral joints. Impression: Fracture of the styloid process of the distal radius. Bone marrow edema in the carpal bones, posttraumatic versus secondary to altered biomechanics. Mild negative ulnar variance. Small distal radial ulnar joint effusion, trace carpal joint effusion and fluid in the prestyloid recess, posttraumatic. Signal abnormality in the scapholunate and lunotriquetral ligaments may indicate sprain. Suspect tear of the triangular ligament. Enlarged median nerve which could be posttraumatic. Mild tendinopathy of flexor digitorum profundus and superficialis This document has been electronically signed by: Tejal Castanon MD on 12/06/2024 20:31:46
--- OUTSIDE RECORDS SUMMARY | 2024-12-06 19:55 | XMS_ITS | Clinical Summary ---
Author Organization [facility] Address [address] [place] [address] [place] [phone] Phone Care Team Providers Care Acupuncture Physician Name Role Phone Unavailable Primary Care Provider [...] Devices Not on file Insurance [place] [address] [place] [id number] [place] [address] [place] [id number] [place] [address] [place] [id number] [place] [address] [place] [id number] [employer] Additional Source Comments The information contained in this document represents components of the legal health record. It is not the complete legal health record.[facility]
--- OUTSIDE RECORDS SUMMARY | 2024-12-06 19:55 | XMS_ITS | Encounter Summary ---
Author Organization [facility] Address [address] [place] [address] Phone Care Team Providers Care Gas Mask Assembler Name Role Phone Unavailable Primary Care Provider Unavailabl e Encounter Details Date Type Department Care Team (Late st Contact Info) Description 01/04/2020 Procedure Pass [facility] [address] [place] [address] [place], [place] [phone] Social History Tobacco Use Types Packs/Day Years [...] It is not the complete legal health record.[facility]
--- OUTSIDE RECORDS SUMMARY | 2024-12-06 19:55 | XMS_ITS | Encounter Summary ---
Author Organization [facility] Address [address] [place] [address] Care Team Providers Care Research Associate Name Role Phone Name, Kiel BAILEY Primary Care Provider [phone] Encounter Details Date Type Department Care Team Description 09/10/2022 Social Work [facility] [address] [place] [address] Adina Archer, [facility] Social History Tobacco Use Types Packs/Day Years [...] on filedocumented in this encounter Care Teams Research Associate Relationship Specialty Start Date End Date Name, MD Kiel [address] [place] [address] [address] [place] [address] PCP - General Internal Medicine 04/17/18 documented as of this encounter
--- OUTSIDE RECORDS SUMMARY | 2024-12-06 19:55 | XMS_ITS | Clinical Summary ---
Author Organization [facility] Address [address] [place] [address] Care Team Providers Care Twine Reeling Machine Operator Name Role Phone Name, Kiel BAILEY Primary Care Provider [phone] Allergies Active Allergy Reactions Criticality Noted Date [...] age to complete this topic Care Teams Twine Reeling Machine Operator Relationship Specialty Start Date End Date Name, MD Kiel [address] [facility] [address] [place] [address] PCP - General Internal Medicine 04/17/18
--- OUTSIDE RECORDS SUMMARY | 2024-12-06 19:55 | XMS_ITS | Encounter Summary ---
Author Organization [facility] Address [address] [place] [address] Phone Care Team Providers Care Res Habilitation Assistant Name Role Phone Unavailable Primary Care Provider Unavailabl e Encounter Details Date Type Department Care Team (Latest Contact Info) Description 01/04/2020 Ancillary Orders [facility] [address] [place] [address] [place] [address] Bright Jesus, DO [address] [place] [phone] Chest pain, unspecified type Social History Tobacco [...] It is not the complete legal health record.[facility]
--- OUTSIDE RECORDS SUMMARY | 2024-12-06 19:55 | XMS_ITS | Clinical Summary ---
Author Organization 175 [facility] Address [address] [place] [address] Phone Care Team Providers Care Library Circulation Department Chief Name Role Phone Name, Kiel BAILEY Primary Care Provider [phone] Allergies Active Allergy Reactions Criticality Noted Date [...] Active medical supply, miscellaneous (MISCELLANEOUS MEDICAL SUPPLY [facility] [place] [place] ULTICARE SHORT PEN NEEDLES 31G X 8 MM USE FOUR TIMES DAILY TO INJECT insulin WITH A MEAL AND AT BEDTIME 06/23/19 16 Active blood sugar diagnostic (FreeStyle Lite Strips) test strip USE TO TEST FINGER STICK BLOOD SUGAR TWICE DAILY DIRECTED 06/23/19 16 Active medical supply, miscellaneous (MISCELLANEOUS MEDICAL SUPPLY MISC) [facility] [place] [place] DEVICES (COMMODE BEDSIDE) MIS 1 Device by Does not apply route as needed (voiding/bm). 12/11/19 15 Active ASPIRIN ORAL Take 1 Tab by mouth daily. 11/28/19 15 Active lancets (Sure Comfort Lancets) 30 gauge [facility] [place] USE TO TEST FINGER STICK BLOOD SUGAR [...] Problem Noted Date Diagnosed Date COPD exacerbation ([facility] V24, [facility] V28) Abnormal nuclear stress test 11/06/2014 Rib fracture 12/24/2013 Overview (12/12/2023): Non displaced, probable froacture on the right ninth and tenth Abdominal pain 08/15/2013 Lipoma of abdominal wall 11/02/2011 Visual field defect 03/29/2011 Cocaine abuse, episodic use ([facility] V24, [facility] V28) 06/17/2010 Low back pain radiating to left leg 10/08/2009 Overview (12/12/2023): The patient follows with [facility] and is treated with injections to the LS. Asthmatic bronchitis , chronic ([facility] V24, [facility] V28) 07/07/2009 Overview (12/12/2023): Severe and worse in the spring. Last hospitalazion in May and 3 ER visits Hospital 08/02 Known medical problems 06/05/2009 Tobacco use disorder 06/05/2009 Hypertriglyceridemia 06/05/2009 Morbid obesity ([facility] V24, [facility] V28) 2009 Overview (12/12/2023): BMI 48.37 on [...] TOTAL HYSTERECTOMY WITH BSO; COMMENT: for bleeding, [facility] Medical History Medical History Date Comments Type II or unspecified type diabetes mellitus with unspecified complication, not stated as uncontrolled DX:Type II or unspecified t ype diabetes mellitus with unspecified complication, not stated as uncontrolled Unspecified essential hypertension DX:Unspecified essential hypertension Tobacco abuse DX:Tobacco abuse RAD (reactive airway disease) DX :RAD (reactive airway disease) Morbid obesity ([facility] V24, [facility] V28) DX:Morbid obesity ([facility]) Asthmatic bronchitis , chron ic ([facility] V24, [facility] V28) 07/07/2009 DX:Asthmatic bronchitis , ch ronic ([facility]) Hypertriglyceridemia 06/05/2009 DX:Hypertri glyceridemia Rib fracture 12/24/2013 DX:Rib fracture Family History Medical History Relation Name Comments Blindness Brother 1 Breast cancer Maternal Grandmother Cataracts Maternal Grandmother Blindness Mother Glaucoma Neg Hx Macular degeneration Neg Hx Strabismus Neg Hx Relation Name Status Comments Brother 1 Brother 2 SC Brother 3 Alive 6 brothers are diabetic [...] Upcoming Encounters Date Type Department Care Team ([facility] st Contact Info) Description 01/31/2025 9:00 AM EST Office Visit Orthopedic Surgery - [place] [address] [phone] Wesley Garcia, [place] [address] [phone] Health Maintenance Due Date Last Done Comments Breast Cancer Screening 1965 Colorectal Cancer Screening: Colonoscopy 1965 Diabetes: Annual Foot Exam 08/22/1975 Diabetes: Annual Retina Eye Exam 08/22/1975 Hepatitis A Vaccines (1 of 2 - Risk 2-dose series) 1984 Cervical Cancer Screening: Pap Smear 1986 RSV Immunization Adult Patients (1 - Risk 50-74 years 1-dose series) 08/22/2015 HIV Screening 01/29/2022 Social Influencers of Health Screening 01/29/2022 Diabetes: Annual Urine Albumin-Creatinine Ratio (uACR) 02/06/2022 05/10/2014 Depression Screening 02/22/2024 COVID-19 Vaccine ( - season) 2024 12/15/2021, 03/13/2021, 08/18/2020, Additional history [...] 3:36 AM EST [facility] Comment:Calculation based on the Chronic Kidney Disease Epidemiology Collaboration (CKD-EPI) equation refit without adjustment for race. BUN/Creatinine Ratio 23.9 LAB CHEMISTRY METHOD 02/06/2024 3:36 AM EST [facility] Calcium 9.3 8.5 - 10.5 mg/dL LAB CHEMISTRY METHOD 02/06/2024 3:36 AM EST [facility] Blood Venous blood specimen / Unknown Venipuncture / Unknown 02/06/2024 2:59 AM EST 02/06/2024 3:13 AM EST Result [facility] Cindy SEGURA LAB BLOOD ORDERABLES Final R esult [facility] [address] [place] [address], * (ABNORMAL) Hemoglobin A1c (11/20/2014) Pathologist [facility] Hemoglobin A1C 7.5(A) 4.0 - 6.0 % Blood Venous blood specimen / Unknown Result [facility] Historical Provider LAB BLOOD ORDERABLES Alis l Result * Urine Albumin Creatinine Ratio (05/10/2014) Pathologist [facility] Urine Albumin Creatinine Ratio abstracted Result [facility] Historical Provider HEALTH MAINTENANCE Final Result * (ABNORMAL) Lipid panel (05/10/2014) [facility] LDL/HDL Ratio 4 0 - 4 Triglycerides 360(A) 0 - 150 mg/dL Cholesterol 179 0 - 200 mg/dL HDL 42 >=40 mg/dL LDL Cholesterol 65 0 - 100 mg/dL Blood Venous blood specimen / Unknown Result [facility] Historical Provider LAB BLOOD ORDERABLES Alis l Result * Hepatitis C Screening (10/10/2013) Pathologist [facility] Hepatitis C Screening abstracted us Historical Provider HEALTH MAINTENANCE Final Result from Last 3 Months or Most Recently Relevant to Health Maintenance Insurance [place] Advance Directives * Full Code - Default [...] currently active code status orders. Care Teams Library Circulation Department Chief Relationship Specialty Start Date End Date Name, MD Kiel [address] [place], [place] PCP - General Internal Medicine 08/28/15
== END 2024-12-06 18:40 | disposition home or self-care (01) ==
LOC: HO.MRI 18:39
PROVIDERS: PCP Internal Medicine Geriatric Medicine
DX: S52.514A Nondisplaced fracture of right radial styloid process, initial encounter for closed fracture (principal); M79.643 Pain in unspecified hand
CPT/HCPCS: 73221

== ENCOUNTER 2024-12-13 11:21 | Emergency (ER) | payer MEDICAID, SELFPAY ==
--- OUTSIDE RECORDS SUMMARY | 2023-11-24 09:53 | XMS_ITS | Encounter Summary ---
Author Organization [facility] Address [address] [place] [address] Care Team Providers Care Pension Administrator Name Role Phone Name, Kiel BAILEY Primary Care Provider [phone] Encounter Details Date Type Department Care Team (Late st Contact Info) Description 11/24/2023 9:53 AM EDT Hospital Encounter TH HISTORIC ENCOUNTERS EASTERN CONVERSION ONLY Geoffrey-Art Vitale MD [address] [place] [address] Social History Tobacco Use Types Packs/Day [...] 02/05/2024 6:47 AM Rosy New RN * [place] Suicide Severity Rating Scale (Screener/Recent Self-Report) Question [...] 2:17 PM Encounter Date: 11/24/2023 Status: Signed Manager Assisted Living: Art Davis MD (Physician) CHIEF COMPLAINT: Chief Complaint Patient presents with ? Follow-up Diffuse large B-cell lymphoma Stage III Completed 6 cycles of R-CHOP in July 23, 2018 IDENTIFIER:Sarita Puga is a 58 y.o. female. HPI: The patient returns for follow up of Large B-cell lymphoma. Here with her daughter , who is georgian to lao speech and language assistant Patient reports that she has [...] accompanied by her daughter and girlfriend. As Faroese to [place] speech and language assistant assisted with the discussion. She [...] AM EST Office Visit Orthopedic Surgery - [place] [address] [phone] Wesley Garcia DPM [address] [phone] documented as of this encounter Procedures Procedure [...] documented as of this encounter Care Teams Pension Administrator Relationship Specialty Start Date End Date Name, MD Kiel 4 [place], [place] PCP - General Internal Medicine 08/28/15 documented as of this encounter
--- OUTSIDE RECORDS SUMMARY | 2023-11-24 10:30 | XMS_ITS | Encounter Summary ---
Author Organization [facility] Address [id number] [place] [phone] Care Team Providers Care Real Estate Loan Processor Name Role Phone Name, Kiel BAILEY Primary Care Provider [phone] Encounter Details Date Type Department Care Team (Late st Contact Info) Description 11/24/2023 10:30 AM EDT Hospital Encounter TH HISTORIC ENCOUNTERS EASTERN CONVERSION ONLY Geoffrey-Art Vitale MD [address] [place] [phone] Social History Tobacco Use Types Packs/Day [...] 02/05/2024 6:47 AM Rosy New RN * [place] Suicide Severity Rating Scale (Screener/Recent Self-Report) Question [...] AM EST Office Visit Orthopedic Surgery - [place] [address] [phone] Wesley Garcia DPM [address] [phone] documented as of this encounter Visit Diagnoses Not on filedocumented in this encounter Additional Health Concerns Infection Onset Date Last Indicated Resolved Time Respiratory Rule-Out 02/05/2024 02/05/2024 024 8:09 AM EST COVID-19 Rule-Out 02/05/2024 02/05/2024 02/05/2024 8:09 AM EST documented as of this encounter Care Teams Real Estate Loan Processor Relationship Specialty Start Date End Date Name, MD Kiel [address] [place], [place] PCP - General Internal Medicine 08/28/15 documented as of this encounter
--- NOTE | ~2024-12-13 | XR_ITS ---
EXAMINATION: XR LUMBOSACRAL SPINE CLINICAL INFORMATION: fall COMPARISON: Previous x-ray October 2024 TECHNIQUE: Three views of the lumbosacral spine. FINDINGS: Bone alignment is normal. No fracture or dislocation. Degenerative spondylosis in the lower thoracic spine and lower lumbar spine. Degenerative disc disease at L4-5. Lower lumbar spine facet arthritis. Mild atherosclerotic disease. Surgical clips in the bilateral pelvis. XR/XR lumbar spine 2-3V IMPRESSION: Degenerative changes. No fracture. Electronically signed by: Allison Chavez MD 12/13/2024 12:53 PM EDT
--- NOTE | ~2024-12-13 | XR_ITS ---
EXAMINATION: XR SHOULDER, LEFT CLINICAL INFORMATION: pain COMPARISON: Previous x-ray October 2024 TECHNIQUE: AP external rotation, Grashey, scapular Y, and axillary views of the left shoulder. FINDINGS: The bones and soft tissues are normal. No fracture. Glenohumeral and acromioclavicular alignment is anatomic with normal joint space. No abnormal soft tissue calcifications. XR/XR shoulder LT min 2V IMPRESSION: Normal left shoulder. Electronically signed by: Allison Chavez MD 12/13/2024 12:49 PM EDT
--- NOTE | ~2024-12-13 | XR_ITS ---
EXAMINATION: XR KNEE, RIGHT CLINICAL INFORMATION: pain, fall out of bed COMPARISON: Previous x-ray most recent July 2020 TECHNIQUE: Four views of the right knee. FINDINGS: 3 component knee replacement in satisfactory position. Bone alignment is normal. No fracture or dislocation or x-ray evidence of loosening. Normal joint spaces. No joint effusion. XR/XR knee RT 3V IMPRESSION: No fracture or dislocation. Satisfactory appearance of right knee replacement. Electronically signed by: Allison Chavez MD 12/13/2024 12:55 PM EDT
--- OUTSIDE RECORDS SUMMARY | 2024-12-13 10:40 | XMS_ITS | Encounter Summary ---
Author Organization [employer] Address [address] [facility] [address] [place] [address] Care Team Providers Care Rda Name Role Phone Name, Kiel BAILEY Primary Care Provider [phone] Katlyn Rodrgiuez PharmD Unavailable Reason for Visit * Reason Comments Shoulder Pain Encounter Details Date Type Department Care Team ([facility] st Contact Info) Description 12/13/2024 10:40 AM EDT Office Visit [facility] [address] [place] [address] Lorenzo Chavez MD [address] [place] [address] Acute pain of left shoulder (Primary Dx); Acute pain of right knee; Nondisplaced fracture of right radial styloid process, subsequent encounter for closed fracture with delayed healing Social History Tobacco Use Types Packs/Day Years [...] Sign Reading Time Taken Comments Blood Pressure 118/78 12/13/2024 10:36 AM EDT Pulse 83 12/13/2024 10:36 AM EDT Temperature 36.8 C (98.3 F) 12/13/2024 10:36 AM EDT Respiratory Rate 18 12/13/2024 10:36 AM EDT Oxygen Saturation 97% 12/13/2024 10:36 AM EDT Inhaled Oxygen Concentration - - Weight 106 kg (233 lb) 12/13/2024 10:36 AM EDT Height - - Body Mass Index 41.27 11/01/2024 12:08 PM EDT documented in this encounter Progress Notes * Lorenzo Chavez MD - 12/13/2024 10:40 AM EDT Subjective History was provided by the patient and adult daughter. Sarita Puga is a 59 y.o. female who presents for evaluation of left shoulder and right knee painstarted today. Daughter states she fell out of bed this AM. History of CVA with left-sided hemiparesis. Typically has difficulty with LUE ROM, but now with significant pain in the lateral aspect of left shoulder with assisted ROM. Also with history of right knee TKR. Now with swelling and anterior knee pain since the fall this AM. Patient has a history of right hand radial styloid fracture s/p a mechanical fall on 10/06/2024. Immobilized with thumb spica cast, which is now off. Followed by Ortho who ordered MRI due to continuedpain. MRI Right Wrist (12/06/2024): Fracture of the styloid process of the distal radius Bone marrow edema in the carpal bones Small distal radial ulnar joint effusion Tace carpal joint effusion and fluid in the prestyloid recess Signal abnormality in the scapholunate and lunotriquetral ligaments Suspect tear of the triangular ligament Enlarged median nerve Mild tendinopathy of flexor digitorum profundus and superficialis Ortho follow up scheduled next month. POC Hgb A1c 7.5 (10/02/2024). Objective Vitals: 12/13/24 1036 BP: 118/78 BP Location: Right arm Patient Position: Sitting BP Cuff Size: Large adult Pulse: 83 Resp: 18 Temp: 98.3 ??F (36.8 ??C) TempSrc: Temporal SpO2: 97% Weight: 233 lb (106 kg) Physical Exam Constitutional: General: She is not in acute distress. Appearance: Normal appearance. She is not ill-appearing, toxic-appearing or diaphoretic. Comments: Uncomfortable from pain HENT: Head: Normocephalic and atraumatic. Right Ear: External ear normal. Left Ear: External ear normal. Mouth/Throat: Mouth: Mucous membranes are moist. Pharynx: Oropharynx is clear. Eyes: Extraocular Movements: Extraocular movements intact. Conjunctiva/sclera: Conjunctivae normal. Pulmonary: Effort: Pulmonary effort is normal. Musculoskeletal: Cervical back: Neck supple. Comments: Right wrist tenderness, but has FROM; unable to move left upper extremity; tenderness in the lateral aspect of left shoulder; reports tenderness with AROM of the left shoulder even at 30 degree FF/ABD; baseline left-sided hemiparesis; right knee edema/effusion; negative anterior/posteriordrawer's; no varus/valgus instability Skin: General: Skin is warm and dry. Neurological: General: No focal deficit present. Mental Status: She is alert and oriented to person, place, and time. Psychiatric: Mood and Affect: Mood normal. Behavior: Behavior normal. No visits with results within 2 Day(s) from this visit. Latest known visit with results is: Orders Only on 11/30/2024 Component Date Value Ref Range Status Bilirubin, Total 11/30/2024 0.5 0.0 - 1.0 mg/dL Final Bilirubin, Direct 11/30/2024 0.2 0.0 - 0.5 mg/dL Final Aspartate Amino Transferase 11/30/2024 23 5 - 31 U/L Final Slight Hemolysis.Interpret result with caution. Alanine Aminotransferase 11/30/2024 21 0 - 31 U/L Final Total Protein 11/30/2024 6.9 6.5 - 8.0 g/dL Final Albumin Level 11/30/2024 4.4 3.5 - 5.0 g/dL Final Alkaline Phosphatase 11/30/2024 75 39 - 117 U/L Final Triglycerides 11/30/2024 122 <150 mg/dL Final Desirable Triglyceride: less than 150 mg/dLBorderline High Triglyceride 150-199 mg/dLHigh Triglyceride: 200-499 mg/dLVery High Triglyceride: greater than or equal to 5OO mg/dL Cholesterol 11/30/2024 151 <200 mg/dL Final Desirable Cholesterol: less than 200 mg/dLBorderline High Cholesterol: 200-239 mg/dLHigh Cholesterol: greater than 239 mg/dL LDL Cholesterol Calculated 11/30/2024 91 <100 mg/dL Final Desirable LDL: less than 100 mg/dLNear Optimal/Above Optimal LDL: 110-129 mg/dLBorderline High LDL: 130-159 mg/dLHigh LDL: 160-189 mg/dLVery High LDL: greater than or equal to 190 mg/dL HDL Cholesterol 11/30/2024 36 (L) >40 mg/dL Final Desirable HDL: greater than 40 mg/dL Note: This HDL assay may give artificially low results in patients with liver disease. Sarita was seen today for shoulder pain. Diagnoses and all orders for this visit: Acute pain of left shoulder (Primary) Acute pain of right knee Nondisplaced fracture of right radial styloid process, subsequent encounter for closed fracture with delayed healing Patient presents to [facility] with multiple joint concerns Ongoing right wrist pain due to delayed healing and carpal ligaments issues, seen on recent MRI Also with a fall early this AM, resulting in left shoulder and right knee pain Complicated by underlying left-sided hemiparesis and history of right TKA At this time, I have advised the patient to be evaluated in ER Currently has an appointment with Orthopedic Surgery in 1 month, but likely will require a sooner evaluation given worsening pain Daughter will bring her to ER [facility] contacted to coordinate care documented in this encounter Plan of Treatment Upcoming Encounters Date Type Department Care Team (Late st Contact Info) Description 12/26/2024 10:30 AM EST Medication Management [address] [address] PuiaKatlyn, PharmD [address] [place] [id number] 01/28/2025 11:00 AM EST Office Visit [address] [address] Name, MD Kiel [address] [place] [phone] 02/04/2025 11:30 AM EST Clinical Support [address] [address] Opal Steiner RN documented as of this encounter Goals Goal Patient Goal Type Associated Problems Recent Progress Patient-Stated? Author Record your blood pressure once per day Blood Pressure No Puia, Katlyn, PharmD Blood Pressure < 140/90 Blood Pressure 118/78(2024 10:36 AM EDT) No Puia, Katlyn, PharmD Hemoglobin A1c < 7 Result Component 7.5( 11:12 AM EDT) No Puia, Katlyn, PharmD Record your blood sugar as directed Result Component No Puia, Katlyn, PharmD documented as of this encounter Visit Diagnoses Diagnosis Acute pain of left shoulder- Primary Acute pain of right knee Nondisplaced fracture of right radial styloid process, subsequent encounter for closed fracture with delayed healing documented in this encounter Additional Health Concerns Assessment Noted Time PHQ-9 Depression Total Score: 7 09/05/19 25 11:46 AM EDT documented as of this encounter Care Teams Rda Relationship Specialty Start Date End Date Name, MD Kiel [address] [place] [address] PCP - General Family Medicine 07/15/15 Katlyn Rodriguez PharmD [address] [place] [address] Pharmacist Internal Medicine 10/08/22 Marta Ovalle Payroll AccountantMeat Counter Clerk 05/25/23 documented as of this encounter
[2024-12-13 11:42] VITALS: BP 154/77; PULSE 84; RESP 16; TEMP 35.8; O2SAT 99; BMI 41.3
--- NOTE | 2024-12-13 11:44 | ED.FALL ---
HPI - Fall General Chief Complaint: Fall Stated Complaint: Fell off bed - arm & knee injury Time Seen by Provider: 12/13/24 11:58 Source: patient, family (Daughter), old records reviewed and clinical nurse Mode of arrival: ambulatory Limitations: no limitations History of Present Illness ED Provider: DR. Saucedo HPI Narrative: 59-year-old female with past medical history significant for COPD on home O2, restrictive lung disease, cigarette smoking, T2 DM, DRE, lymphoma, obesity, CVA with left hemiparesis ambulate with walker lives home with her grandson patient was brought in fell off her bed about 2 ft height while she was rolling landing on her left side of the body complaining of back pain, left shoulder pain, and right knee pain. Patient otherwise declined head or neck injury, no CP, no SOB, no headache, no abdominal pain. Related Data Home Medications ?Medication ?Instructions ?Recorded ?Confirmed montelukast 10 mg tablet 10 mg PO BEDTIME 02/13/20 10/03/24 (Singulair) paroxetine HCl 40 mg tablet 40 mg PO BEDTIME 12/05/20 10/03/24 pen needle, diabetic 32 gauge x #50 ea 12/05/20 10/03/24 (Pentips Pen Needle) insulin glargine 100 unit/mL (3 36 unit subcut DAILY 05/26/21 10/03/24 mL) subcutaneous pen (Lantus Solostar U-100 Insulin) gabapentin 600 mg tablet 600 mg PO TID PRN Pain 04/21/22 10/03/24 lidocaine 5 % topical patch 1 patch topical DAILY PRN Pain 04/21/22 10/03/24 metoprolol succinate 25 mg 25 mg PO BEDTIME 04/21/22 10/03/24 tablet,extended release 24 hr oxcarbazepine 300 mg tablet 450 mg PO BEDTIME 04/21/22 10/03/24 clonidine HCl 0.1 mg tablet 0.1 mg PO BEDTIME 07/08/22 10/03/24 atorvastatin 80 mg tablet 80 mg PO BEDTIME 01/05/23 10/03/24 metformin 500 mg tablet,extended 500 mg PO BEDTIME 01/05/23 10/03/24 release 24 hr acetaminophen 650 mg 650 mg PO Q8H PRN Mild Pain (Scale 06/18/24 10/03/24 tablet,extended release Score 1-4) albuterol sulfate 2.5 mg/3 mL 2.5 mg inhalation Q4H PRN 06/18/24 10/03/24 (0.083 %) solution for nebulization shortness of breath or wheezing albuterol sulfate 90 mcg/actuation 2 puff inhalation Q4H PRN wheezing 06/18/24 10/03/24 aerosol inhaler (Ventolin HFA) baclofen 10 mg tablet 10 mg PO TID PRN muscle spasm 06/18/24 10/03/24 calcium 600 mg (as 1 tab PO BID 06/18/24 10/03/24 carbonate)-vitamin D3 5 mcg (200 unit) tablet cetirizine 10 mg tablet (Zyrtec) 10 mg PO DAILY 06/18/24 10/03/24 ezetimibe 10 mg tablet 10 mg PO DAILY 06/18/24 10/03/24 famotidine 20 mg tablet 20 mg PO BID 06/18/24 10/03/24 furosemide 20 mg tablet 20 mg PO DAILY 06/18/24 10/03/24 icosapent ethyl 1 gram capsule 2 g PO BID 06/18/24 10/03/24 losartan 50 mg tablet 50 mg PO DAILY 06/18/24 10/03/24 meloxicam 7.5 mg tablet 7.5 mg PO DAILY 06/18/24 10/03/24 oxcarbazepine 150 mg tablet 150 mg PO DAILY 06/18/24 10/03/24 tirzepatide 15 mg/0.5 mL 15 mg subcut FR 06/18/24 10/03/24 subcutaneous pen injector (Lurdes) trazodone 100 mg tablet 100 mg PO BEDTIME PRN insomnia 06/18/24 10/03/24 Previous Rx's ?Medication ?Instructions ?Recorded oxycodone 10 mg tablet 10 mg PO DAILY PRN headache #30 06/20/24 tabs fluticasone propionate 115 2 puff inhalation Q12H ASTHMA/COPD 09/12/24 mcg-salmeterol 21 mcg/actuation 30 days #12 grams HFA inhaler (Advair HFA) ibuprofen 600 mg tablet 600 mg PO Q6H PRN pain #12 tabs 10/06/24 pyridoxine (vitamin B6) 100 mg 100 mg PO DAILY 90 days #90 tabs 11/12/24 tablet ipratropium 20 mcg-albuterol 100 1 puff PO Q6H #4 grams 11/21/24 mcg/actuation mist for inhalation (Combivent Respimat) Allergies Allergy/AdvReac Type Severity Reaction Status Date / Time penicillin G (Penicillin G) Allergy Mild SWELLING Verified 12/13/24 11:42 barium sulfate (ORAL Allergy Unknown HIVES Verified 12/13/24 11:42 CONTRAST) cephalexin Allergy Unknown Unknown Verified 12/13/24 11:42 Review of Systems Review of Systems: All other systems are reviewed and are negative Constitutional: Reports as per HPI and Reports no additional constitutional complaints Eyes: Reports as per HPI and Reports no additional eye complaints Reports system reviewed and no additional complaints, except as documented Cardiovascular: Reports as per HPI and Reports no additional cardiovascular complaints Respiratory: Reports as per HPI and Reports no additional respiratory complaints Gastrointestinal: Reports as per HPI and Reports no additional gastrointestinal complaints Genitourinary: Reports no additional female genitourinary complaints Musculoskeletal: Reports no additional musculoskeletal complaints Skin/Breast: Reports system reviewed and no additional complaints, except as docu Psychiatric: Reports no additional psychiatric complaints Endocrine: Reports no additional endocrine complaints Hematologic/Lymphatic: Reports no additional hematologic/lymphatic complaints Allergic/Immunologic: Reports no additional allergic/immunologic complaints Reports system reviewed and no additional complaints, except as documented and Reports Abnormal speech present [facility] Past Medical History Medical History COPD (chronic obstructive pulmonary disease) Diabetes mellitus Brain lesion Reactive airway disease Coronary artery disease Insulin dependent type 2 diabetes mellitus Exposure to rabies Lymphoma Restrictive lung disease secondary to obesity Nocturnal hypoxemia DRE (obstructive sleep apnea) Cough Nicotine dependence, cigarettes, uncomplicated Allergic rhinitis Morbid obesity Hyperlipidemia GERD (gastroesophageal reflux disease) Tubular adenoma Chronic idiopathic constipation IBS (irritable bowel syndrome) Back pain Depression Surgical History History of total right knee replacement (TKR) History of appendectomy (~1978) History of (~1986) History of hysterectomy (~1995) History of lithotripsy (~2018) History of carpal tunnel surgery of right wrist (~2020) History of colonoscopy History of esophagogastroduodenoscopy (EGD) Family History Family History Mother Diabetes Heart muscle disorder caused by another medical condition Father Diabetes Epilepsy Sister No problems noted. Sister No problems noted. Sister No problems noted. Sister No problems noted. Sister No problems noted. Brother No problems noted. Brother No problems noted. Brother No problems noted. Brother No problems noted. Brother No problems noted. Brother No problems noted. Daughter No problems noted. Daughter No problems noted. Son No problems noted. Son No problems noted. Son No problems noted. Social History Social History Household Members: Other Household Members Other:: grandson Housing: Apartment Are you a primary career consultant to a significant other at home: No Do you presently have visiting nurse or other home services: No Alcohol intake: current Alcohol intake frequency: a few times a week Patient Tobacco Use Status: Current everyday Tobacco user Tobacco use type: Cigarette Cigarette Packs Per Day: 2 Cigarettes Per Day: 40.0 Years Smoked: (onset 13yo, x 42yrs, max 2ppd, now 1/2ppd - 30PYH) e-Cigarette/Vaping Use: Never Used Second Hand Smoke Exposure: No Substance Use Type: Marijuana Advance Directives: No Advance Directives Information Provided: Yes service: No Current occupational status: disabled Current occupation: rt handed Physical Exam Vital Signs: Vital Signs: Last Vital Signs Temp 98.2 F 12/13/24 12:51 Pulse 84 12/13/24 11:42 Resp 16 12/13/24 11:42 BP 154/77 H 12/13/24 11:42 Pulse Ox 99 12/13/24 11:42 O2 Del Method Room Air 12/13/24 11:42 BMI result Body Mass Index 41.3 Appearance: Alert. Oriented X3. No acute distress. Head: Normal external exam. Normocephalic. Atraumatic. No Quinones signs noted. No raccoon eyes noted Eyes: PERRLA. EOMI. Conjunctiva and sclera normal. Eyelids normal. ENT: TM's Normal. Pharynx normal. Uvula midline. Moist mucous membranes. No trismus noted. No drooling noted. No muffled voice noted. Neck: Normal inspection. Neck supple. FROM. No adenopathy. Thyroid Normal. No meningeal signs. No neck mass noted. CVS: Normal heart rate and rhythm. Heart sound normal. No murmurs noted. Pulses normal throughout. Respiratory: No respiratory distress. Painless inspiration. Breath sounds normal. No wheezes/rales/rhonchi noted. Chest nontender. No accessory muscle usage noted or decreased air movement noted. Abdomen: Soft and nontender. Bowel sounds normal in all 4 quadrants. No distention noted. No organomegaly noted. No visible injury noted. Back: No CVA tenderness. Full range of motion noted. Skin: Skin warm and dry. Normal skin color. Normal skin turgor. No rashes/lesions/lacerations noted. Extremities: Left shoulder, normal inspection, held in adduction, limited range of motion secondary to pain. Intact neurovascular exam to the left upper extremity. Right knee: Normal inspection, no deformity, no step-off, diffuse pain over the knee with intact neurovascular exam. Neuro: Mild left hemiparesis secondary to an old stroke. Course Course Course Narrative: This is an RME: Additional HPI, ROS, PE not included below will be deferred to primary provider. RME assessment and note performed by: Aurora Beltrán PA-C 59 yo female with PMH of DM, HTN, COPD, hyperlipidemia, GERD, tubular adenoma, IBS, depression, lymphoma, CVA, and DRE who presents emergency department after a fall out of bed. Patient states that she injured her left shoulder and right knee. No head strike or LOC. She is not on anticoagulation. Plan: X-rays, further ER evaluation needed. Reevaluation(s) Reevaluation #1: Negative left shoulder x-ray, right knee x-ray, lumbar spine x-ray for acute fracture, patient had a successful trial of ambulation in the ED at her baseline as per family. Family and patient want to go home. Time: 13:57 Medications Administered Discontinued Medications Generic Name Dose Route Start Last Admin Trade Name Freq PRN Reason Stop Dose Admin Ibuprofen 800 mg 12/13/24 12:09 12/13/24 12:50 Ibuprofen 800 Mg Tablet PO 12/13/24 12:10 800 mg ONCE ONE Administration Oxycodone HCl 5 mg 12/13/24 12:09 12/13/24 12:49 Oxycodone Hcl Immed Release 5 Mg Tablet PO 12/13/24 12:10 5 mg ONCE ONE Administration Medical Decision Making Differential Diagnosis Differential Diagnoses: The differential diagnosis associated with the presentation includes (Head injury, cervical injury, extremity injury, chest injury, abdominal injury, left shoulder injury, right knee injury, lumbar spine injury.) Admission/Observation Consideration of admission/observation: Escalation of care including admission/observation considered Independent Interpretation I performed an independent interpretation of an: Plain X-Ray (Left shoulder/right knee/lumbar spine x-ray:No fracture or dislocation. Satisfactory appearance of right knee replacement, degenerative lumbar spine changes, normal left shoulder.) Radiology Impression Discussion of test interpretation with radiology: I have reviewed the radiologist's reading. Discharge Plan Discharge Clinical Impression: Accident due to mechanical fall without injury, Contusion of knee, right, Contusion of left shoulder Patient Disposition: Home, Self-Care Instructions: Contusion in Adults (ED), Fall Prevention (ED) Additional Instructions: Take bree-oee-[id number] Tylenol 500 mg or ibuprofen 200 mg every 6 hours if needed for pain. Prescriptions: No Action Advair HFA 115-21 mcg/actuation HFA aerosol inhaler 2 puff inhalation Q12H 30 Days Qty: 12 5RF Rx Instructions: administer with spacer pyridoxine (vitamin B6) 100 mg tablet 100 mg PO DAILY 90 Days Qty: 90 3RF Combivent Respimat 20-100 mcg/actuation mist 1 puff PO Q6H Qty: 4 3RF losartan 50 mg tablet 50 mg PO DAILY oxcarbazepine 150 mg tablet 150 mg PO DAILY calcium carbonate-vitamin D3 600 mg-5 mcg (200 unit) tablet 1 tab PO BID meloxicam 7.5 mg tablet 7.5 mg PO DAILY famotidine 20 mg tablet 20 mg PO BID trazodone 100 mg tablet 100 mg PO BEDTIME PRN (Reason: insomnia) baclofen 10 mg tablet 10 mg PO TID PRN (Reason: muscle spasm) furosemide 20 mg tablet 20 mg PO DAILY albuterol sulfate [Ventolin HFA] 90 mcg/actuation HFA aerosol inhaler 2 puff INHALATION Q4H PRN (Reason: wheezing) ezetimibe 10 mg tablet 10 mg PO DAILY icosapent ethyl 1 gram capsule 2 g PO BID Mounjaro 15 mg/0.5 mL pen injector 15 mg subcut FR acetaminophen 650 mg tablet extended release 650 mg PO Q8H PRN (Reason: Mild Pain (Scale Score 1-4)) albuterol sulfate 2.5 mg /3 mL (0.083 %) solution for nebulization 2.5 mg inhalation Q4H PRN (Reason: shortness of breath or wheezing) cetirizine [Zyrtec] 10 mg tablet 10 mg PO DAILY oxycodone 10 mg tablet 10 mg PO DAILY PRN (Reason: headache) Qty: 30 0RF Rx Instructions: Partial Fill upon patient request. ibuprofen 600 mg tablet 600 mg PO Q6H PRN (Reason: pain) Qty: 12 0RF montelukast [Singulair] 10 mg tablet 10 mg PO BEDTIME gabapentin 600 mg tablet 600 mg PO TID PRN (Reason: Pain) metoprolol succinate 25 mg tablet extended release 24 hr 25 mg PO BEDTIME (DME) pen needle, diabetic [Pentips Pen Needle] 32 gauge x 5/32 needle See Rx Instructions .ROUTE DAILY Qty: 50 Rx Instructions: As directed paroxetine HCl 40 mg tablet 40 mg PO BEDTIME Lantus Solostar U-100 Insulin 100 unit/mL (3 mL) insulin pen 36 unit subcut DAILY lidocaine 5 % adhesive patch,medicated 1 patch topical DAILY PRN (Reason: Pain) Rx Instructions: leave on most painful area for up to 12 hrs oxcarbazepine 300 mg tablet 450 mg PO BEDTIME clonidine HCl 0.1 mg tablet 0.1 mg PO BEDTIME metformin 500 mg tablet extended release 24 hr 500 mg PO BEDTIME atorvastatin 80 mg tablet 80 mg PO BEDTIME Referrals: Name,MD Kiel [Primary Care Provider, Internal Medicine] Print Language: Welsh
[2024-12-13] MEDS: oxyCODONE HCl Immed Release 5 MG TABLET PO (12:49)
[2024-12-13 12:51] VITALS: TEMP 36.8
--- NOTE | 2024-12-13 13:52 | PC.NURSE ---
Patient got up with assistance to walk with a walker and stand by. Family at home to assist her. Daughter at bedside.
[2024-12-13 14:26] VITALS: BP 138/62; PULSE 75; RESP 16; TEMP 36.8; O2SAT 98
--- OUTSIDE RECORDS SUMMARY | 2024-12-13 15:23 | XMS_ITS | Encounter Summary ---
Author Organization [employer] Address [address] [facility] [address] [place] [address] Care Team Providers Care Ore Sampler Name Role Phone Name, Kiel BAILEY Primary Care Provider [phone] Katlyn Rodriguez PharmD Unavailable [phone] Encounter Details Date Type Department Care Team (Latest Contact Info) Description 12/13/2024 Travel Social History Tobacco Use Types Packs/Day [...] Description 12/26/2024 10:30 AM EST Medication Management [address] [address] Puia, Katlyn, PharmD [address] [place] [phone] 01/28/2025 11:00 AM EST Office Visit [address] [address] Name, MD Kiel [address] [place] [phone] 02/04/2025 11:30 AM EST Clinical Support [address] [address] Opal Steiner, MARINA documented as of this [...] documented as of this encounter Care Teams Ore Sampler Relationship Specialty Start Date End Date Name, MD Kiel [address] [place] [address] PCP - General Family Medicine 07/15/15 Katlyn Rodriguez PharmD [address] [place] [address] Pharmacist Internal Medicine 10/08/22 Marta Ovalle Solar Hot Water InstallerOil Separator 05/25/23 documented as of this encounter
--- OUTSIDE RECORDS SUMMARY | 2024-12-13 15:23 | XMS_ITS | Encounter Summary ---
Author Organization [employer] Address [address] [facility] 7t [place] [address] Care Team Providers Care Gateman Name Role Phone Name, Kiel BAILEY Primary Care Provider [phone] Katlyn Rodriguez PharmD Unavailable [phone] Reason for Visit * Reason Comments Med Refill Encounter Details Date Type Department Care Team ([facility] Contact Info) Description 12/10/2024 Refill [facility] [address] [place] [address] Name, MD Kiel [address] [place] [address] Social History Tobacco Use Types Packs/Day Years [...] Description 12/26/2024 10:30 AM EST Medication Management [address] [address] Puia, Katlyn, PharmD [address] [place] [address] 01/28/2025 11:00 AM EST Office Visit [address] [address] Name, MD Kiel [address] [place] [address] 02/04/2025 11:30 AM EST Clinical Support [address] [address] Opal Steiner RN documented as of this [...] documented as of this encounter Care Teams Gateman Relationship Specialty Start Date End Date Name, MD Kiel [address] [place] [address] PCP - General Family Medicine 07/15/15 AdeniaKatlyn, PharmD [address] [place] [address] Pharmacist Internal Medicine 10/08/22 Marta Ovalle Regulatory AnalystManager Assurance 05/25/23 documented as of this encounter
--- OUTSIDE RECORDS SUMMARY | 2024-12-13 15:23 | XMS_ITS | Encounter Summary ---
Author Organization [employer] Address [address] [place] [address] 7t [place] [address] Care Team Providers Care Pin Game Machine Inspector Name Role Phone Name, Kiel BAILEY Primary Care Provider [phone] Katlyn Rodriguez PharmD Unavailable [phone] Nehal Ann RN Unavailable Unavailable Ania Spencer Unavailable Opal Leyva Unavailable [phone] Reason for Visit * Reason Comments Med Refill Encounter Details Date Type Department Care Team (Late st Contact Info) Description 07/16/2022 Refill [facility] MED[facility] [address] [place], [place] [phone] Name, MD Kiel 230 [place], [place] [phone] Chronic pain syndrome Social History Tobacco Use [...] Description 12/26/2024 10:30 AM EST Medication Management [address] [address] Katlyn Rodriguez PharmD [address] [place] [address] 01/28/2025 11:00 AM EST Office Visit [address] [address] Name, MD Kiel [address] [place] [address] 02/04/2025 11:30 AM EST Clinical Support [address] [address] Opal Steiner, MARINA documented as of this encounter Visit Diagnoses Diagnosis Chronic pain syndrome documented in this encounter Additional Health Concerns Assessment Noted Time PHQ-9 Depression Total Score: 7 07/15/19 23 2:39 PM EDT documented as of this encounter Care Teams Pin Game Machine Inspector Relationship Specialty Start Date End Date NameKiel MD [address] [place] [address] PCP - General Family Medicine 07/15/15 Katlyn Rodriguez, PharmD [address] [place] [address] Pharmacist Internal Medicine 10/08/22 Nehal Ann, MARINA [address] [place] [address] Registered Nurse Family Medicine 08/20/24 10/29/24 Ania Spencer 08/20/24 11/26/24 Opal Leyva Registered Nurse 10/29/24 11/26/24 Marta Ovalle Rhythmic Gymnastics CoachWatch Repair Person 05/25/23 documented as of this encounter
--- OUTSIDE RECORDS SUMMARY | 2024-12-13 15:23 | XMS_ITS | Encounter Summary ---
Author Organization [email or web address] Address [address] [place] [address] 7t [place] [address] Care Team Providers Care Record Press Supervisor Name Role Phone Name, Kiel BAILEY Primary Care Provider [phone] Katlyn Rodriguez PharmD Unavailable [phone] Nehal Ann RN Unavailable Unavailable Ania Spencer Unavailable Opal Leyva Unavailable [phone] Reason for Visit * Reason Comments Med Refill Encounter Details Date Type Department Care Team (Late st Contact Info) Description 07/02/2022 Refill [facility] MED[facility]INE 230 [place], [place] [phone] Name, MD Kiel 230 [place], [place] [phone] Chronic pain syndrome Social History Tobacco Use [...] Description 12/26/2024 10:30 AM EST Medication Management [address] [phone] Katlyn Rodriguez PharmD [address] [place] [address] 01/28/2025 11:00 AM EST Office Visit [address] [phone] Name, MD Kiel [address] [place] [address] 02/04/2025 11:30 AM EST Clinical Support [address] [phone] Opal Steiner, MARINA documented as of this encounter Visit Diagnoses Diagnosis Chronic pain syndrome documented in this encounter Care Teams Record Press Supervisor Relationship Specialty Start Date End Date Name, MD Kiel [address] [place] [address] PCP - General Family Medicine 07/15/15 Katlyn Rodriguez PharmD [address] [place] [address] Pharmacist Internal Medicine 10/08/22 Nehal Ann, MARINA [address] [place] [address] Registered Nurse Family Medicine 08/20/24 10/29/24 Ania Spencer 08/20/24 11/26/24 Opal Leyva Registered Nurse 10/29/24 11/26/24 Marta Ovalle Hat Body InspectorAesthetics Instructor 05/25/23 documented as of this encounter
--- OUTSIDE RECORDS SUMMARY | 2024-12-13 15:23 | XMS_ITS | Encounter Summary ---
Author Organization [employer] Address [address] [facility] 7t [place] [address] Care Team Providers Care Equipment Processor Name Role Phone Name, Kiel BAILEY Primary Care Provider [phone] Katlyn Rodriguez PharmD Unavailable [phone] Nehal Ann RN Unavailable Unavailable Ania Spencer Unavailable Opal Leyva Unavailable [phone] Reason for Visit * Reason Comments Med Refill Encounter Details Date Type Department Care Team (Late st Contact Info) Description 09/07/2023 Refill [facility] [address] [place] [address] Name, MD Kiel 230 [place] [address] Type 2 diabetes mellitus with other specified [...] the past 12 months, has t he [employer], gas, oil or water company threatened to [...] Description 12/26/2024 10:30 AM EST Medication Management [address] [address] Katlyn Rodriguez PharmD [address] [place] [address] 01/28/2025 11:00 AM EST Office Visit [address] [address] Name, MD Kiel [address] [place] [address] 02/04/2025 11:30 AM EST Clinical Support [address] [address] Opal Steiner RN documented as of this encounter Goals Goal Patient Goal Type Associated Problems Recent Progress Patient-Stated? Author Record your blood pressure once per day Blood Pressure No Katlyn Rodriguez, PharmD Blood Pressure < 140/90 Blood Pressure 118/78(2024 10:36 AM EDT) No Katlyn Rodriguez, PharmD Hemoglobin A1c < 7 Result Component 7.5( 5 11:12 AM EDT) No AdeniaReidKatlyn, PharmD Record your blood sugar as directed Result Component No Katlyn Rodriguez, PharmD documented as of this encounter Visit Diagnoses Diagnosis Type 2 diabetes mellitus with other specified complication (HCC) documented in this encounter Additional Health Concerns Assessment Noted Time PHQ-9 Depression Total Score: 4 09/02/19 24 10:30 AM EDT documented as of this encounter Care Teams Equipment Processor Relationship Specialty Start Date End Date Name, MD Kiel [address] [place] [address] PCP - General Family Medicine 07/15/15 Katlyn Rodriguez PharmD [address] [place] [address] Pharmacist Internal Medicine 10/08/22 Nehal Ann, MARINA [address] [place] [address] Registered Nurse Family Medicine 08/20/24 10/29/24 Ania Spencer 08/20/24 11/26/24 Opal Leyva Registered Nurse 10/29/24 11/26/24 Marta Ovalle Christian Science ReaderInformation Technology Teacher 05/25/23 documented as of this encounter
--- OUTSIDE RECORDS SUMMARY | 2024-12-13 15:23 | XMS_ITS | Encounter Summary ---
Author Organization [employer] Address [address] [facility] 7t [place] [address] Care Team Providers Care Campus Aide Name Role Phone Name, Kiel BAILEY Primary Care Provider [phone] Katlyn Rodriguez PharmD Unavailable [phone] Nehal Ann RN Unavailable Unavailable Ania Spencer Unavailable Opal Leyva Unavailable [phone] Reason for Visit * Reason Onset Date Comments Medication Problem 08/30/2023 Encounter Details Date Type Department Care Team (Late st Contact Info) Description 08/30/2023 Telephone [facility] MEDICINE 230 [place], [place] [phone] Name, MD Kiel 230 [place], [place] [phone] Medication Problem Social History Tobacco Use Types [...] Description 12/26/2024 10:30 AM EST Medication Management [address] [address] Katlyn Rodriguez, PharmD [address] [place] [address] 01/28/2025 11:00 AM EST Office Visit [address] [address] Name, MD Kiel [address] [place] [address] 02/04/2025 11:30 AM EST Clinical Support [address] [address] Opal Steiner, MARINA documented as of this [...] sugar as directed Result Component No Puia, Kaltyn, PharmD documented as of this encounter Visit Diagnoses Not on filedocumented in this encounter Additional Health Concerns Assessment Noted Time PHQ-9 Depression Total Score: 7 07/15/19 23 2:39 PM EDT documented as of this encounter Care Teams Campus Aide Relationship Specialty Start Date End Date Name, MD Kiel 230 [place] [address] PCP - General Family Medicine 07/15/15 Puia, Katlyn, PharmD 230 [place] [address] Pharmacist Internal Medicine 10/08/22 Nehal Ann RN [address] [place] [address] Registered Nurse Family Medicine 08/20/24 10/29/24 Ania Spencer 08/20/24 11/26/24 Opal Leyva Registered Nurse 10/29/24 11/26/24 Marta Ovalle Assistant Women'S Basketball CoachObiee Architect 05/25/23 documented as of this encounter
--- OUTSIDE RECORDS SUMMARY | 2024-12-13 15:23 | XMS_ITS | Encounter Summary ---
Author Organization [employer] Address [address] [place] [address] 7t [place] [address] Care Team Providers Care Cable Former Name Role Phone Name, Kiel BAILEY Primary Care Provider [phone] Katlyn Rodriguez PharmD Unavailable [phone] Nehal Ann RN Unavailable Unavailable Ania Spencer Unavailable Opal Leyva Unavailable [phone] Reason for Visit * Reason Comments Med Refill Encounter Details Date Type Department Care Team (Late st Contact Info) Description 04/15/2023 Refill [facility] MED[facility]INE 230 [place], [place] [phone] Yaneth Restrepo FNP 230 [place] [address] Diabetes mellitus type 2 in obese (CMS/HCC) [...] Description 12/26/2024 10:30 AM EST Medication Management [address] [address] Puia, Katlyn, PharmD [address] [place] [address] 01/28/2025 11:00 AM EST Office Visit [address] [address] Name, MD Kiel [address] [place] [address] 02/04/2025 11:30 AM EST Clinical Support [address] [address] Opal Steiner, MARINA documented as of this [...] documented as of this encounter Care Teams Cable Former Relationship Specialty Start Date End Date Name, MD Kiel 230 [place] [address] PCP - General Family Medicine 07/15/15 Katlyn Rodriguez PharmD [address] [place] [address] Pharmacist Internal Medicine 10/08/22 Nehal Ann RN [address] [place] [address] Registered Nurse Family Medicine 08/20/24 10/29/24 Ania Spencer 08/20/24 11/26/24 Opal Leyva Registered Nurse 10/29/24 11/26/24 Marta Ovalle Brake Lining FinisherClient Services Vice President 05/25/23 documented as of this encounter
--- OUTSIDE RECORDS SUMMARY | 2024-12-13 15:23 | XMS_ITS | Encounter Summary ---
Author Organization [employer] Address [address] [place] [address] 7t [place] [address] Care Team Providers Care Working Manager Name Role Phone Name, Kiel BAILEY Primary Care Provider [phone] Katlyn Rodriguez PharmD Unavailable [phone] Nehal Ann RN Unavailable Unavailable Ania Spencer Unavailable Opal Leyva Unavailable [phone] Encounter Details Date Type Department Care Team ([facility] Contact Info) Description 07/01/2022 Abstract [facility] MEDICINE 230 [place] [address] Name, MD Kiel 230 [place] [address] Social History Tobacco Use Types Packs/Day Years [...] Upcoming Encounters Date Type Department Care Team ([facility] Contact Info) Description 12/26/2024 10:30 AM EST Medication Management [facility] [place] [address] Katlyn Rodriguez PharmD [facility] [place] [address] 01/28/2025 11:00 AM EST Office Visit [address] [place] [address] Name, MD Kiel [facility] [place] [address] 02/04/2025 11:30 AM EST Clinical Support [facility] [place] [address] Opal Steiner RN documented as of this encounter Procedures Procedure Name Priority Date/Time Associated Diagnosis Comments COLONOSCOPY Routine 07/01/2022 4:37 PM EDT documented in this encounter Results * Colonoscopy (07/01/2022 4:37 PM EDT) Colonoscopy Normal Normal Narrative [place] Devine - 07/01/2022 4:37 PM EDT Recommended 5 year follow up ([facility]) Historical Provider HEALTH MAINTENANCE Final Result documented in this encounter Visit Diagnoses Not on filedocumented in this encounter Care Teams Working Manager Relationship Specialty Start Date End Date Name, MD Kiel [facility] [place], [place] PCP - General Family Medicine 07/15/15 Katlyn Rodriguez, PharmD [facility] [place] [address] Pharmacist Internal Medicine 10/08/22 Nehal Ann RN [address] [place] [address] Registered Nurse Family Medicine 08/20/24 10/29/24 Ania Spencer 08/20/24 11/26/24 Opal Leyva Registered Nurse 10/29/24 11/26/24 Marta Ovalle Fowl Blood TesterEpic Application Coordinator 05/25/23 documented as of this encounter
--- OUTSIDE RECORDS SUMMARY | 2024-12-13 15:23 | XMS_ITS | Encounter Summary ---
Author Organization [employer] Address [address] [facility] 7t [place] [address] Care Team Providers Care Ring Spinner Name Role Phone Name, Kiel BAILEY Primary Care Provider [phone] Katlyn Rodriguez PharmD Unavailable [phone] Nehal Ann RN Unavailable Unavailable Ania Spencer Unavailable Opal Leyva Unavailable [phone] Reason for Visit * Reason Onset Date Comments Reschedule 08/01/2023 Encounter Details Date Type Department Care Team (Late st Contact Info) Description 08/01/2023 Telephone [facility] MEDICINE 230 [place], [place] [phone] Name, MD Kiel 230 [place] [address] Reschedule Social History Tobacco Use Types Packs/Day [...] 08/01/2023 9:55 AM EDT Triage call with [place] [id number] . Pt reports Covid + test this [...] 08/01/2023 9:04 AM EDT Patient cancelled todays ORDER CONTROL CLERK BLOOD BANK RV appt today. Pt's ORDER CONTROL CLERK BLOOD BANK appt has been rescheduled for chronic pain [...] AM EDT Tc from pt requesting r/s ORDER CONTROL CLERK BLOOD BANK appt, stated is sick and suspect is COVID documented in this encounter Plan of Treatment Upcoming Encounters Date Type Department Care Team (Late st Contact Info) Description 12/26/2024 10:30 AM EST Medication Management [facility] MEDICINE [address] [place] [address] Katlyn Rodriguez, PharmD 230 [place] [address] 01/28/2025 11:00 AM EST Office Visit [facility] MEDICINE [address] [place] [address] Name, [place] [address] 02/04/2025 11:30 AM EST Clinical Support [facility]INE [address] [place] [address] Opal Steiner, RN documented as of this [...] documented as of this encounter Care Teams Ring Spinner Relationship Specialty Start Date End Date Name, [place] [address] PCP - General Family Medicine 07/15/15 Puia, Katlyn, PharmD [address] [place] [address] Pharmacist Internal Medicine 10/08/22 Nehal Ann, MARINA [address] [place] [address] Registered Nurse Family Medicine 08/20/24 10/29/24 Ania Spencer 08/20/24 11/26/24 Opal Leyva Registered Nurse 10/29/24 11/26/24 Marta Ovalle Financial Services CounselorHand Sample Maker 05/25/23 documented as of this encounter
--- OUTSIDE RECORDS SUMMARY | 2024-12-13 15:23 | XMS_ITS | Encounter Summary ---
Author Organization [employer] Address [address] [place] [address] 7t [place] [address] Care Team Providers Care Doll Wig Maker Rooted Hair Name Role Phone Name, Kiel BAILEY Primary Care Provider Katlyn Rodriguez PharmD Unavailable [phone] Nehal Ann RN Unavailable Unavailable Ania Spencer Unavailable Opal Leyva Unavailable [phone] Reason for Visit * Reason Comments Med Refill Encounter Details Date Type Department Care Team ([facility] Contact Info) Description 02/10/2022 Refill [facility] [address] [place] [address] Name, MD Kiel 230 [place] [address] Chronic pain syndrome (Primary Dx) Social History [...] Type Department Care Team ([facility] Contact Info) Description 12/26/2024 10:30 AM EST Medication Management [address] [phone] Katlyn Rodriguez PharmD Jai [place], [place] 01/28/2025 11:00 AM EST Office Visit [address] [phone] Name, MD Kiel [address] [place] [address] 02/04/2025 11:30 AM EST Clinical Support [address] [address] Opal Steiner RN documented as of this encounter Visit Diagnoses Diagnosis Chronic pain syndrome- Primary documented in this encounter Care Teams Doll Wig Maker Rooted Hair Relationship Specialty Start Date End Date Kiel Shaffer MD [address] [place] [address] PCP - General Family Medicine 07/15/15 Katlyn Rordiguez PharmD [address] [place] [address] Pharmacist Internal Medicine 10/08/22 Nehal Ann, MARINA [address] [place] [address] Registered Nurse Family Medicine 08/20/24 10/29/24 Ania Spencer 08/20/24 11/26/24 Opal Leyva Registered Nurse 10/29/24 11/26/24 Marta Ovalle Lifter DriverIntel Recruiter 05/25/23 documented as of this encounter
--- OUTSIDE RECORDS SUMMARY | 2024-12-13 15:23 | XMS_ITS | Encounter Summary ---
Author Organization [facility] Address [address] [place] [address] Care Team Providers Care Joist Setter Name Role Phone Name, Kiel BAILEY Primary Care Provider [phone] Encounter Details Date Type Department Care Team Description 09/10/[address] [facility] [address] [place] [address] Adina Archer, [facility] Social History Tobacco Use Types Packs/Day Years [...] on filedocumented in this encounter Care Teams Joist Setter Relationship Specialty Start Date End Date Name, MD Kiel [address] [place] [address] [address] [place] [address] PCP - General Internal Medicine 04/17/18 documented as of this encounter
--- OUTSIDE RECORDS SUMMARY | 2024-12-13 15:23 | XMS_ITS | Encounter Summary ---
Author Organization [employer] Address [address] [place] [address] 7t [place] [address] Care Team Providers Care Kiln Tender Name Role Phone Name, Kiel BAILEY Primary Care Provider Katlyn Rodriguez PharmD Unavailable [phone] Nehal Ann RN Unavailable Unavailable Ania Spencer Unavailable Opal Leyva Unavailable [phone] Encounter Details Date Type Department Care Team ([facility] Contact Info) Description 07/01/2022 Abstract [facility] MEDICINE 230 [place] [address] Name, MD Kiel 230 [place] [address] Social History Tobacco Use Types Packs/Day Years [...] Team ([facility] Contact Info) Description 12/26/2024 10:30 AM EST Medication Management [address] [address] Katlyn Rodriguez PharmD J[place], [place] 01/28/2025 11:00 AM EST Office Visit [address] [phone] Name, MD Kiel [address] [place] [address] 02/04/2025 11:30 AM EST Clinical Support [address] [phone] Opal Steiner, MARINA documented as of this encounter Visit Diagnoses Not on filedocumented in this encounter Care Teams Kiln Tender Relationship Specialty Start Date End Date Name, MD Kiel [address] [place] [address] PCP - General Family Medicine 07/15/15 Katlyn Rodriguez PharmD [address] [place] [address] Pharmacist Internal Medicine 10/08/22 Nehal Ann, MARINA [address] [place] [address] Registered Nurse Family Medicine 08/20/24 10/29/24 Ania Spencer 08/20/24 11/26/24 Opal Leyva Registered Nurse 10/29/24 11/26/24 Marta Ovalle Senior Quality Control TechnicianCafe Team Member 05/25/23 documented as of this encounter
--- OUTSIDE RECORDS SUMMARY | 2024-12-13 15:23 | XMS_ITS | Encounter Summary ---
Author Organization [email or web address] Address [address] [place] [address] 7t [place] [address] Care Team Providers Care Shuttle Spotter Name Role Phone Name, Kiel BAILEY Primary Care Provider Katlyn Rodriguez PharmD Unavailable [phone] Nehal Ann RN Unavailable Unavailable Ania Spencer Unavailable Opal Leyva Unavailable [phone] Reason for Visit * Reason Comments Med Refill Encounter Details Date Type Department Care Team (Late st Contact Info) Description 04/25/2022 Refill [facility] MEDICINE 230 [place], [place] [phone] Name, MD Kiel 230 [place] [address] Diabetes mellitus type 2 in obese (CMS/HCC) [...] Description 12/26/2024 10:30 AM EST Medication Management [address] [phone] Katlyn Rodriguez PharmD J[place], [place] 01/28/2025 11:00 AM EST Office Visit [address] [address] Name, MD Kiel [place], [place] 02/04/2025 11:30 AM EST Clinical Support [address] [phone] Opal Steiner, MARINA documented as of this encounter Visit Diagnoses Diagnosis Diabetes mellitus type 2 in obese- Primary Type II or unspecified type diabetes mellitus without mention of complication, not stated as uncontrolled documented in this encounter Care Teams Shuttle Spotter Relationship Specialty Start Date End Date Name, MD Kiel [address] [place] [address] PCP - General Family Medicine 07/15/15 Katlyn Rodriguez, Bin [address] [place] [address] Pharmacist Internal Medicine 10/08/22 Nehal Ann, MARINA [address] [place] [address] Registered Nurse Family Medicine 08/20/24 10/29/24 Ania Spencer 08/20/24 11/26/24 Opal Leyva Registered Nurse 10/29/24 11/26/24 Marta Ovalle Nutrition TeacherIndustrial Relations Worker 05/25/23 documented as of this encounter
--- OUTSIDE RECORDS SUMMARY | 2024-12-13 15:23 | XMS_ITS | Encounter Summary ---
Author Organization [employer] Address [address] [facility] 7t [place] [address] Care Team Providers Care Baggageman Name Role Phone Name, Kiel BAILEY Primary Care Provider Katlyn Rodriguez PharmD Unavailable [phone] Nehal Ann RN Unavailable Unavailable Ania Spencer Unavailable Opal Leyva Unavailable [phone] Reason for Visit * Reason Comments Med Refill Encounter Details Date Type Department Care Team (Late st Contact Info) Description 06/08/2024 Refill [facility] MED & PEDS [address] [place] [address] Name, MD Kiel [address] [place] [address] Chronic pain syndrome Social History Tobacco Use [...] is your housing situation today? I have shirni jackson 09/02/[address] you [...] Description 12/26/2024 10:30 AM EST Medication Management [address] [address] Katlyn Rodriguez PharmD [address] [place] [address] 01/28/2025 11:00 AM EST Office Visit [address] [address] Name, MD Kiel [address] [place] [address] 02/04/2025 11:30 AM EST Clinical Support [address] [address] Opal Steiner, MARINA documented as of this [...] documented as of this encounter Care Teams Baggageman Relationship Specialty Start Date End Date Name, MD Kiel [address] [place] [address] PCP - General Family Medicine 07/15/15 Puia, Katlyn, PharmD [address] [place] [address] Pharmacist Internal Medicine 10/08/22 Nehal Ann, MARINA [address] [place] [address] Registered Nurse Family Medicine 08/20/24 10/29/24 Ania Spencer 08/20/24 11/26/24 Opal Leyva Registered Nurse 10/29/24 11/26/24 Marta Ovalle Hr ConsultantAircraft Cleaner 05/25/23 documented as of this encounter
--- OUTSIDE RECORDS SUMMARY | 2024-12-13 15:23 | XMS_ITS | Encounter Summary ---
Author Organization [email or web address] Address [address] [place] [address] 7t [place] [address] Care Team Providers Care Grinder Set Up Operator Internal Name Role Phone Name, Kiel BAILEY Primary Care Provider [phone] Katlyn Rodriguez PharmD Unavailable [phone] Nehal Ann RN Unavailable Unavailable Ania Spencer Unavailable Opal Leyva Unavailable [phone] Encounter Details Date Type Department Care Team ([facility] Contact Info) Description 03/12/2022 Orders Only [facility] CH[facility] MED & PEDS [address] [place], [place] [phone] Millie Sawant LPN Social History Tobacco Use [...] Date Type Department Care Team ([facility] Contact Info) Description 12/26/2024 10:30 AM EST Medication Management [facility] MEDICINE 230 [place] [address] Katlyn Rodriguez, [place] [address] 01/28/2025 11:00 AM EST Office Visit [address] [address] Name, MD Kiel [place], [place] 02/04/2025 11:30 AM EST Clinical Support [address] [address] Opal Steiner, MARINA documented as of this encounter Visit Diagnoses Not on filedocumented in this encounter Care Teams Grinder Set Up Operator Internal Relationship Specialty Start Date End Date Name, MD Kiel [address] [place] [address] PCP - General Family Medicine 07/15/15 Katlyn Rodriguez, PharmD [address] [place] [address] Pharmacist Internal Medicine 10/08/22 Nehal Ann, RN [address] [place] [address] Registered Nurse Family Medicine 08/20/24 10/29/24 Ania Spencer 08/20/24 11/26/24 Opal Leyva Registered Nurse 10/29/24 11/26/24 Marta Ovalle Barber Or Beauty Shop ManagerProfessor Of Family Medicine 05/25/23 documented as of this encounter
--- OUTSIDE RECORDS SUMMARY | 2024-12-13 15:23 | XMS_ITS | Encounter Summary ---
Author Organization [employer] Address [address] [facility] 7t [place] [address] Care Team Providers Care Incendiaries Supervisor Name Role Phone Name, Kiel BAILEY Primary Care Provider Katlyn Rodriguez PharmD Unavailable [phone] Nehal Ann RN Unavailable Unavailable Ania Spencer Unavailable Opal Leyva Unavailable [phone] Reason for Visit * Reason Comments Med Refill Encounter Details Date Type Department Care Team (Late st Contact Info) Description 06/08/2024 Refill [facility] CH[facility] MED & PEDS [address] [place] [address] Name, MD Kiel [address] [place] [address] Chronic pain syndrome Social History Tobacco Use [...] Description 12/26/2024 10:30 AM EST Medication Management [address] [address] Katlyn Rodriguez PharmD [address] [place] [address] 01/28/2025 11:00 AM EST Office Visit [address] [address] Name, MD Kiel [address] [place] [address] 02/04/2025 11:30 AM EST Clinical Support [address] [address] Opal Steiner, MARINA documented as of this [...] documented as of this encounter Care Teams Incendiaries Supervisor Relationship Specialty Start Date End Date Name, MD Kiel [address] [place] [address] PCP - General Family Medicine 07/15/15 Puia, Katlyn, PharmD [address] [place] [address] Pharmacist Internal Medicine 10/08/22 Nehal Ann, MARINA [address] [place] [address] Registered Nurse Family Medicine 08/20/24 10/29/24 Ania Spencer 08/20/24 11/26/24 Opal Leyva Registered Nurse 10/29/24 11/26/24 Marta Ovalle Drilling ContractorNight Shift Supervisor 05/25/23 documented as of this encounter
--- OUTSIDE RECORDS SUMMARY | 2024-12-13 15:23 | XMS_ITS | Encounter Summary ---
Author Organization [employer] Address [address] [place] [address] 7t [place] [address] Care Team Providers Care Cage Tender Name Role Phone Name, Kiel BAILEY Primary Care Provider [phone] Katlyn Rodriguez PharmD Unavailable [phone] Nehal Ann RN Unavailable Unavailable Ania Spencer Unavailable Opal Leyva Unavailable [phone] Reason for Visit * Reason Onset Date Comments Appointment Request 02/29/2024 Encounter Details Date Type Department Care Team (Late st Contact Info) Description 02/29/2024 Telephone [facility] [address] [place], [place] [phone] Name, MD Kiel [address] [place], [place] [phone] Appointment Request Social History Tobacco Use Types [...] speak estonian so you will need an teleradiologist. documented in this encounter Plan of Treatment Upcoming Encounters Date Type Department Care Team (Late st Contact Info) Description 12/26/2024 10:30 AM EST Medication Management [facility] [address] [place] [address] Katlyn Rodriguez, PharmD [address] [place] [address] 01/28/2025 11:00 AM EST Office Visit [facility] [address] [place] [address] Name, MD Kiel [address] [place] [address] 02/04/2025 11:30 AM EST Clinical Support [facility] [address] [place] [address] Opal Steiner, MARINA documented as of this [...] documented as of this encounter Care Teams Cage Tender Relationship Specialty Start Date End Date Name, MD Kiel [address] [place] [address] PCP - General Family Medicine 07/15/15 Puia, Katlyn, PharmD [address] [place] [address] Pharmacist Internal Medicine 10/08/22 Nehal Ann RN [address] [place] [address] Registered Nurse Family Medicine 08/20/24 10/29/24 Ania Spencer 08/20/24 11/26/24 Opal Leyva Registered Nurse 10/29/24 11/26/24 Marta Ovalle Library ParaprofessionalPrinting Machinist 05/25/23 documented as of this encounter
--- OUTSIDE RECORDS SUMMARY | 2024-12-13 15:23 | XMS_ITS | Encounter Summary ---
Author Organization [employer] Address [address] [facility] 7t [place] [address] Care Team Providers Care Real Estate Broker Associate Name Role Phone Name, Kiel BAILEY Primary Care Provider [phone] Katlyn Rodriguez PharmD Unavailable [phone] Nehal Ann RN Unavailable Unavailable Ania Spencer Unavailable Opal Leyva Unavailable [phone] Reason for Visit * Reason Comments Med Refill Encounter Details Date Type Department Care Team (Late st Contact Info) Description 06/27/2023 Refill [facility] 230 [place], [place] [phone] Katlyn Rodriguez, PharmD 230 [place] [address] Tobacco use disorder Social History Tobacco Use [...] Description 12/26/2024 10:30 AM EST Medication Management [address] [address] Puia, Katlyn, PharmD [address] [place] [address] 01/28/2025 11:00 AM EST Office Visit [address] [address] Name, MD Kiel [address] [place] [address] 02/04/2025 11:30 AM EST Clinical Support [address] [address] Opal Steiner, MARINA documented as of this [...] of this encounter Care Teams Real Estate Broker Associate Relationship Specialty Start Date End Date Name, MD Kiel [address] [place] [address] PCP - General Family Medicine 07/15/15 Katlyn Rodriguez, PharmD [address] [place] [phone] Pharmacist Internal Medicine 10/08/22 Nehal Ann RN [address] [place] [address] Registered Nurse Family Medicine 08/20/24 10/29/24 Ania Spencer 08/20/24 11/26/24 Opal Leyva Registered Nurse 10/29/24 11/26/24 Marta Ovalle Territory Sales ConsultantPattern Drum Maker 05/25/23 documented as of this encounter
--- OUTSIDE RECORDS SUMMARY | 2024-12-13 15:23 | XMS_ITS | Clinical Summary ---
Author Organization [facility] Address [address] [place] [address] Care Team Providers Care Test Case Developer Name Role Phone Name, Kiel BAILEY Primary Care Provider [phone] Allergies Active Allergy Reactions Criticality Noted Date [...] age to complete this topic Care Teams Test Case Developer Relationship Specialty Start Date End Date Name, MD Kiel 230 [facility] [place] [address] [place] [address] PCP - General Internal Medicine 04/17/18
--- OUTSIDE RECORDS SUMMARY | 2024-12-13 15:23 | XMS_ITS | Encounter Summary ---
Author Organization [employer] Address [address] [facility] 7t [place] [address] Care Team Providers Care Cyber Forensic Specialist Name Role Phone Name, Kiel BAILEY Primary Care Provider [phone] Katlyn Rodriguez PharmD Unavailable [phone] Nehal Ann RN Unavailable Unavailable Ania Spencer Unavailable Opal Leyva Unavailable [phone] Encounter Details Date Type Department Care Team (Late st Contact Info) Description 05/01/2024 Telephone [facility] MEDICINE [address] [place], [place] [phone] Name, MD Kiel [address] [place], [place] [phone] Social History Tobacco Use Types Packs/Day Years [...] Description 12/26/2024 10:30 AM EST Medication Management [address] [address] Katlyn Rodriguez, PharmD [address] [place] [address] 01/28/2025 11:00 AM EST Office Visit [address] [address] Name, MD Kiel [address] [place] [address] 02/04/2025 11:30 AM EST Clinical Support [place] [address] [place] [address] Opal Steiner, MARINA documented as of this [...] documented as of this encounter Care Teams Cyber Forensic Specialist Relationship Specialty Start Date End Date Name, MD Kiel [address] [place] [address] PCP - General Family Medicine 07/15/15 Puia, Katlyn, PharmD [address] [place] [address] Pharmacist Internal Medicine 10/08/22 Nehal Ann RN [address] [place] [address] Registered Nurse Family Medicine 08/20/24 10/29/24 Ania Spencer 08/20/24 11/26/24 Opal Leyva Registered Nurse 10/29/24 11/26/24 Marta Ovalle Contract LoaderFlight Operations Manager 05/25/23 documented as of this encounter
--- OUTSIDE RECORDS SUMMARY | 2024-12-13 15:23 | XMS_ITS | Encounter Summary ---
Author Organization [employer] Address [address] [place] [address] 7t [place] [address] Care Team Providers Care Raise Miner Name Role Phone Name, Kiel BAILEY Primary Care Provider [phone] Katlyn Rodriguez PharmD Unavailable [phone] Nehal Ann RN Unavailable Unavailable Ania Spencer Unavailable Opal Leyva Unavailable [phone] Encounter Details Date Type Department Care Team ([facility] Contact Info) Description 02/23/2022 Orders Only [facility] [address] [place], [place] [phone] Name, MD Kiel [address] [place] [address] Social History Tobacco Use Types Packs/Day Years [...] Team ([facility] Contact Info) Description 12/26/2024 10:30 AM EST Medication Management [facility] [address] Katlyn Rodriguez PharmD Jai [place] 01/28/2025 11:00 AM EST Office Visit [facility] [place] [address] Name, MD Kiel [facility] [place] [address] 02/04/2025 11:30 AM EST Clinical Support [facility] [place] [address] Opal Steiner, MARINA documented as of this encounter Visit Diagnoses Not on filedocumented in this encounter Care Teams Raise Miner Relationship Specialty Start Date End Date Name, MD Kiel [facility] [place] [address] PCP - General Family Medicine 07/15/15 Katlyn Rodriguez, [place] [address] Pharmacist Internal Medicine 10/08/22 Nehal Ann, MARINA [address] [place], [place] [address] [place] [address] Registered Nurse Family Medicine 08/20/24 10/29/24 Ania Spencer 08/20/24 11/26/24 Opal Leyva Registered Nurse 10/29/24 11/26/24 Marta Ovalle Finishing SupervisorPhotography Assistant 05/25/23 documented as of this encounter
--- OUTSIDE RECORDS SUMMARY | 2024-12-13 15:23 | XMS_ITS | Encounter Summary ---
Author Organization [employer] Address [address] [place] [address] 7t [place] [address] Care Team Providers Care Software Application Tester Name Role Phone Name, Kiel BAILEY Primary Care Provider [phone] Katlyn Rodriguez PharmD Unavailable [phone] Nehal Ann RN Unavailable Unavailable Ania Spencer Unavailable Opal Leyva Unavailable [phone] Reason for Visit * Reason Comments Med Refill Encounter Details Date Type Department Care Team (Late st Contact Info) Description 06/28/2022 Refill [facility] MEDICINE 230 [place], [place] [phone] Name, MD Kiel [address] [place], [place] [phone] Chronic pain syndrome Social History Tobacco Use [...] Description 12/26/2024 10:30 AM EST Medication Management [address] [phone] Katlyn Rodriguez PharmD [address] [place] [address] 01/28/2025 11:00 AM EST Office Visit [address] [phone] Name, MD Kiel [address] [place] [address] 02/04/2025 11:30 AM EST Clinical Support [address] [phone] Opal Steiner, MARINA documented as of this encounter Visit Diagnoses Diagnosis Chronic pain syndrome documented in this encounter Care Teams Software Application Tester Relationship Specialty Start Date End Date Name, MD Kiel [address] [place] [address] PCP - General Family Medicine 07/15/15 Katlyn Rodriguez PharmD [address] [place] [address] Pharmacist Internal Medicine 10/08/22 Nehal Ann, MARINA [address] [place] [address] Registered Nurse Family Medicine 08/20/24 10/29/24 Ania Spencer 08/20/24 11/26/24 Opal Leyva Registered Nurse 10/29/24 11/26/24 Marta Ovalle Supervisor ShopIt Admin 05/25/23 documented as of this encounter
--- OUTSIDE RECORDS SUMMARY | 2024-12-13 15:24 | XMS_ITS | Encounter Summary ---
Author Organization [employer] Address [address] [facility] 7t [place] [address] Care Team Providers Care Care Trainer Name Role Phone Name, Kiel BAILEY Primary Care Provider [phone] Katlyn Rodriguez PharmD Unavailable [phone] Nehal Ann RN Unavailable Unavailable Ania Spencer Unavailable Opal Leyva Unavailable [phone] Encounter Details Date Type Department Care Team (Late st Contact Info) Description 02/20/2024 Telephone [facility] CHC MED & PEDS [address] [place] [address] Name, MD Kiel 230 [place] [address] Social History Tobacco Use Types Packs/Day Years [...] Description 12/26/2024 10:30 AM EST Medication Management [address] [address] Katlyn Rodriguez, PharmD [address] [place] [address] 01/28/2025 11:00 AM EST Office Visit [address] [address] Name, MD Kiel [address] [place] [address] 02/04/2025 11:30 AM EST Clinical Support [address] [address] Opal Steiner RN documented as of this [...] as of this encounter Care Teams Care Trainer Relationship Specialty Start Date End Date Name, MD Kiel [address] [place] [address] PCP - General Family Medicine 07/15/15 PuiaKatlyn, PharmD [address] [place] [address] Pharmacist Internal Medicine 10/08/22 Nehal Ann RN [address] [place] [address] Registered Nurse Family Medicine 08/20/24 10/29/24 Ania Spencer 08/20/24 11/26/24 Opal Leyva Registered Nurse 10/29/24 11/26/24 Marta Ovalle Statement Clerks SupervisorPreforming Machine Operator 05/25/23 documented as of this encounter
--- OUTSIDE RECORDS SUMMARY | 2024-12-13 15:24 | XMS_ITS | Encounter Summary ---
Author Organization [employer] Address [address] [facility] 7t [place] [address] Care Team Providers Care Rental Car Deliverer Name Role Phone Name, Kiel BAILEY Primary Care Provider [phone] Katlyn Rodriguez PharmD Unavailable [phone] Nehal Ann RN Unavailable Unavailable Ania Spencer Unavailable Opal Leyva Unavailable [phone] Encounter Details Date Type Department Care Team (Late st Contact Info) Description 08/26/2022 Orders Only [facility] MEDICINE [address] [place] [address] Leia Gonzales LPN Social History Tobacco Use [...] 10:30 AM EST Medication Management [facility] Jai [place], [place] [phone] Katlyn Rodriguez PharmD [facility] [place] 01/28/2025 11:00 AM EST Office Visit [address] [phone] Name, MD Kiel J[place], [place] 02/04/2025 11:30 AM EST Clinical Support [facility] Jai [place], [place] [phone] Opal Steiner, RN documented as of this encounter Visit Diagnoses Not on filedocumented in this encounter Additional Health Concerns Assessment Noted Time PHQ-9 Depression Total Score: 7 07/15/19 23 2:39 PM EDT documented as of this encounter Care Teams Rental Car Deliverer Relationship Specialty Start Date End Date Name, MD Kiel Jai [place], [place] PCP - General Family Medicine 07/15/15 Katlyn Rodriguez PharmD [address] [place] [address] Pharmacist Internal Medicine 10/08/22 Nehal Ann, MARINA [address] [place] [address] Registered Nurse Family Medicine 08/20/24 10/29/24 Ania Spencer 08/20/24 11/26/24 Opal Leyva Registered Nurse 10/29/24 11/26/24 Marta Ovalle Devulcanizer TenderAquarium Specialist 05/25/23 documented as of this encounter
--- OUTSIDE RECORDS SUMMARY | 2024-12-13 15:24 | XMS_ITS | Encounter Summary ---
Author Organization [employer] Address [address] [facility] 7t [place] [address] Care Team Providers Care Automotive Welder Name Role Phone Name, Kiel BAILEY Primary Care Provider [phone] Katlyn Rodriguez PharmD Unavailable [phone] Reason for Visit * Reason Comments Med Refill Encounter Details Date Type Department Care Team ([facility] Contact Info) Description 12/07/2024 Refill [facility] [address] [place] [address] Name, MD Kiel [address] [place] [address] Cerebellar mass; Chronic intractable headache, unspecified headache type Social [...] Description 12/26/2024 10:30 AM EST Medication Management [address] [address] Katlyn Rodriguez, PharmD [address] [place] [address] 01/28/2025 11:00 AM EST Office Visit [address] [address] Name, MD Kiel [address] [place] [address] 02/04/2025 11:30 AM EST Clinical Support [address] [address] Opal Steiner RN documented as of this encounter Goals Goal Patient Goal Type Associated Problems Recent Progress Patient-Stated? Author Record your blood pressure once per day Blood Pressure No Puia, Katlyn, PharmD Blood Pressure < 140/90 Blood Pressure 118/78(2024 10:36 AM EDT) No PuiaReidKatlyn, PharmD Hemoglobin A1c < 7 Result Component 7.5(08/12/202 5 11:12 AM EDT) No AdeniaKatlyn, PharmD Record your blood sugar as directed Result Component No Katlyn Rodriguez, PharmD documented as of this encounter Visit Diagnoses Diagnosis Cerebellar mass Chronic intractable headache, unspecified headache type documented in this encounter Additional Health Concerns Assessment Noted Time PHQ-9 Depression Total Score: 7 09/05/19 25 11:46 AM EDT documented as of this encounter Care Teams Automotive Welder Relationship Specialty Start Date End Date Name, MD Kiel [address] [place] [address] PCP - General Family Medicine 07/15/15 Katlyn Rodriguez, PharmD [address] [place] [address] Pharmacist Internal Medicine 10/08/22 Marta Ovalle Stumper FellerPlatform Stapler 05/25/23 documented as of this encounter
--- OUTSIDE RECORDS SUMMARY | 2024-12-13 15:24 | XMS_ITS | Clinical Summary ---
Author Organization [employer] Address [address] [place] [address] [address] [place] [address] Care Team Providers Care Coding Educator Name Role Phone Name, Kiel BAILEY Primary Care Provider [phone] Katlyn Rodriguez PharmD Unavailable [phone] Allergies Active Allergy Reactions Criticality Noted [...] complication, with long-term current use of insulin ([facility]),Hypertrig lyceridemia Take 2 capsules (2 g) by mouth [...] complication, with long-term current use of insulin ([facility]) Inject 15 mg under the skin 1 (one) time per week. 2 mL 06/08/19 25 Active ezetimibe (Zetia) 10 MG tabletIndicatio ns:Type 2 diabetes mellitus with other specified complication, with long-term current use of insulin ([facility]) TAKE 1 TABLET BY MOUTH EVERY MORNING 30 tablet 07/24/19 25 Active cetirizine (ZyrTEC) 10 MG tablet TAKE 1 TABLET BY MOUTH EVERY MORNING 90 tablet 07/25/19 25 Active rosuvastatin (Crestor) 40 MG tabletIndicatio ns:Type 2 diabetes mellitus with other specified complication, with long-term current use of insulin ([facility]),History of stroke,Tobacco use disorder,Hypert riglyceridemia Take 1 tablet (40 mg) by mouth Once per day. 90 tablet 1 08/17/19 25 Active gabapentin (Neurontin) 800 MG tablet Take 1 tablet (800 mg) by mouth 3 times daily. 90 tablet 08/21/19 25 026 Active aspirin 81 MG chewable tabletIndicatio ns:Type 2 diabetes mellitus with other specified complication, with long-term current use of insulin ([facility]) Chew 1 tablet (81 mg) in the evening. 90 tablet 08/23/19 25 Active metFORMIN XR (Glucophage-XR) 500 MG 24 hr tabletIndicatio ns:Type 2 diabetes mellitus with obesity Take 1 tablet (500 mg) by mouth at bedtime. 90 tablet 08/23/19 25 Active losartan (Cozaar) 50 MG tabletIndicatio ns:Essential hypertension TAKE 1 TABLET BY MOUTH EVERY MORNING 90 tablet 09/13/19 25 Active meloxicam (Mobic) 7.5 MG tablet TAKE 1 TABLET BY MOUTH ONCE DAILY 30 tablet 09/13/19 25 Active TechLite Pen [place] 32G X 4 MM miscIndications :Type 2 diabetes mellitus with other specified complication ([facility]) USE DIRECTED FOUR TIMES DAILY 100 each 09/29/19 25 Active Blood Glucose Monitoring Suppl (FreeStyle Lite) deviceIndicatio ns:Type 2 diabetes mellitus with other specified complication, with long-term current use of insulin ([facility]) Inject 1 each under the skin 2 times daily. Use to test blood sugar as directed 1 each 10/03/19 25 Active glucose blood (FREESTYLE LITE) test stripIndication s:Type 2 diabetes mellitus with other specified complication, with long-term current use of insulin ([facility]) Use to test blood sugar 2 times daily 50 strip 10/03/19 25 Active TRUEplus Lancets 33G miscIndications :Type 2 diabetes mellitus with other specified complication, with long-term current use of insulin ([facility]) Use to test blood sugar twice daily as directed 100 each 11 10/03/19 25 Active lidocaine (Lidoderm) 5 % [...] cut tablets in half 09/19/19 25 Active naloxone (Narcan) 4 mg/0.1 mL nasal sprayIndication s:Long-term current use of opiate analgesic Administer 1 spray (4 mg) into affected nostril(s) if needed for opioid reversal. 2 each 2 11/16/19 25 Active insulin glargine (Lantus SoloStar) 100 UNIT/ML penIndications: Type 2 diabetes mellitus with other specified complication, with long-term current use of insulin ([facility]) Inject 46 Units under the skin at bedtime. 11/28/19 25 Active famotidine (Pepcid) 20 MG tablet TAKE 1 TABLET BY MOUTH TWICE DAILY IN THE MORNING AND IN THE EVENING 180 tablet 12/11/19 25 Active oxyCODONE (Roxicodone) 10 MG immediate release tabletIndicatio ns:Cerebellar mass,Chronic intractable headache, unspecified headache type Take 1 tablet (10 mg) by mouth 3 times daily for 28 days. Do not start before December 14, 2024. 84 tablet 12/15/19 25 025 Active naloxone (Narcan) 4 mg/0.1 mL nasal spray Administer 0.1 mL into affected nostril(s). 12/19/19 22 025 Discontinued(R eorder (will not trigger notification to Pharmacy)) lidocaine (Lidoderm) 5 % patch APPLY 1 PATCH TOPICALLY TO SKIN, LEAVE ON FOR 12 HOURS AND OFF FOR 12 HOURS DIRECTED NEEDED FOR MILD PAIN 30 patch 3 08/17/19 25 025 Discontinued(D uplicate order (will not trigger notification to Pharmacy)) famotidine (Pepcid) 20 MG tablet TAKE 1 TABLET BY MOUTH TWICE DAILY IN THE MORNING AND IN THE EVENING 180 tablet 08/23/19 025 Discontinued oxyCODONE (Roxicodone) 10 MG immediate release tabletIndicatio ns:Cerebellar mass,Chronic intractable headache, unspecified headache type Take 1 tablet (10 mg) by mouth 3 times daily for 28 days. Do not start before October 19, 2024. 84 tablet 10/20/19 25 025 Discontinued(R eorder (will not trigger notification to Pharmacy)) insulin glargine (Lantus SoloStar) 100 UNIT/ML penIndications: Type 2 diabetes mellitus with other specified complication, with long-term current use of insulin ([facility]) Inject 44 Units under the skin at bedtime. Increase, as directed, to max of 50 units daily. 15 mL 5 10/30/19 25 025 Discontinued(R eorder (will not trigger notification to Pharmacy)) oxyCODONE (Roxicodone) 10 MG immediate release tabletIndicatio ns:Cerebellar mass,Chronic intractable headache, unspecified headache type Take 1 tablet (10 mg) by mouth 3 times daily for 28 days. Do not start before November 16, 2024. 84 tablet 11/17/19 25 025 Discontinued Active Problems Problem Noted Date Diagnosed [...] eddi as late effect of cerebrovascular accident ([facility]) 11/01/2024 Assessment & Plan (11/01/2024 4:03 PM [...] to the hospital Case was presented to [facility] emergency room Hemiparesis of left dominant side ([facility]) 07/23 Assessment & Plan (08/17/2024 1:36 PM EDT): Patient will benefit from PT evaluation and after evaluation at the hospital to be referred to acute PT center Cerebrovascular accident (CVA) ([facility]) 025 History of stroke 07/30/2024 Cerebellar mass 06/28/2024 Chronic, continuous use of opioids 11/29/2023 Overview (11/29/2023): Dx: OA knee Tx: oxycodone 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: 05/03/23 Chronic pain syndrome 05/03/2023 [...] PM EST): I presented the case to [facility] emergency room, patient will go by [...] intractable headache 02/05/2019 Anxiety 05/05/2018 B-cell lymphoma (CMS/HCC) 04/17/2018 Hemorrhoids 08/02/2017 Migraine 05/30/2017 Osteoarthritis of [...] CPAP On nocturnal oxygen [place]s [place] [facility] ([place]) Cocaine abuse, episodic use (CMS/HCC) 06/17/2010 Depression 06/05/2009 Assessment & Plan (04/06/2023 5:50 PM EST): Pt notes low motivation daily, has upcoming visit with behavioral health and is establishing with therapist, denies crisis today Hypertriglyceridemia 06/05/2009 Severe obesity (CMS/HCC) 06/05/2009 Overview (07/14/2022): BMI 48.37 on 11/15/13 [...] for Paxlovid sent to the pharmacy -Utilized [place] drug interaction bag checker to assess interactions with current med [...] 06/28/2024 Pancytopenia 04/18/2018 06/28/2024 Simple chronic bronchitis ([facility]) 04/18/2018 06/28/2024 Overview (07/14/2022): Severe and worse in the spring. Last hospitalazion in May and 3 ER visits Hospital 08/02 Acute exacerbation of chroni c obstructive airways disease with asthma ([facility]) 01/02/2018 Seizure ([facility]) 11/18/2017 06/28/2024 Anterior knee pain 10/20/2016 Mesenteric [...] Encounters Date Type Department Care Team Description 12/13/2024 10:40 AM EDT Office Visit [facility] WALK-IN [address] [address] Lorenzo Chavez MD Acute pain of left shoulder (Primary Dx); Acute pain of right knee; Nondisplaced fracture of right radial styloid process, subsequent encounter for closed fracture with delayed healing 12/13/2024 Travel 12/13/2024 Refill [facility] [address] [place] [phone] NameKiel MD Cerebellar mass; Chronic intractable headache, unspecified headache type 12/10/2024 [facility] [address] [address] NameKiel MD 12/07/2024 Refill [facility] [address] [place] [phone] NameKiel MD Cerebellar mass; Chronic intractable headache, unspecified headache type 11/30/2024 Orders Only [facility] [address] [place] [phone] NameKiel MD 11/27/2024 Travel 11/26/2024 Travel 11/26/2024 Patient Outreach [facility] [address] [place] [address] Kiel Shaffer MD Care Management (C3 TC #3-case closed) 11/15/2024 11:30 AM EDT Clinical Support [address] [address] Obdulia, Opal, RN Long-term current use of opiate analgesic (Primary Dx) 11/15/[address] [address] Opal Steiner RN Cerebellar mass; Chronic intractable headache, unspecified headache type; Long-term current use of opiate analgesic 11/15/2024 Travel 11/12/[address] [address] Barbara Martinez OR 11/12/[address] [address] Barbara Martinez, OR DECEMBER RECALLS 11/08/2024 Results Follow-Up [facility] [address] [place] [phone] Lorenzo Chavez MD XR Hand 3+ Views Left 11/08/2024 Travel 11/06/2024 5:00 PM EDT Office Visit [facility] [address] [place] [phone] Lorenzo Chavez MD Swelling of left hand (Primary Dx) 11/06/2024 Travel 11/02/2024 Results Follow-Up [address] [address] Sarita Baker MD XR Shoulder 2+ Views Left 11/01/2024 1:00 PM EDT Office Visit [address] [address] Sarita Baker MD Acute bilateral low back pain without sciatica; Acute pain of left shoulder; Bilateral hand pain; Hemiparesis affecting left side as late effect of cerebrovascular accident ([facility]) 11/01/2024 Travel 11/01/[address] [address] Kiel Shaffer MD Nurse Triage 10/29/[address] [address] Katlyn Rodriguez, Bin 10/29/2024 Travel 10/18/[address] [address] Kiel Shaffer MD Psychophysiological insomnia 10/18/2024 Refill [facility] [address] [place] [address] Lizzie Alfaro NP Cerebellar mass; Chronic intractable headache, unspecified headache type 10/17/2024 Patient Outreach [facility] [address] [place] [address] Kiel Shaffer MD Care Coordination (C3 f/u call- LVM) 10/16/2024 Patient Outreach [facility] [address] [place] [address] Kiel Shaffer MD 10/09/2024 2:00 PM EDT [facility] [address] [address] Sarita Baker MD Essential hypertension (Primary Dx); Nondisplaced fracture of right radial styloid process, initial encounter for closed fracture 10/09/2024 Travel 10/09/[address] [address] Kiel Shaffer MD ER Follow-up; Nurse Triage 10/09/[address] [address] Kiel Shaffer MD No Show 10/06/2024 Orders Only [facility] External Provider, [facility] 10/05/[address] [address] Kiel Shaffer MD Referral 10/04/2024 Patient Outreach [address] [address] Kiel Shaffer MD Care Management ([facility] TC #2-lvm) 10/02/2024 10:40 AM EDT Office Visit [address] [address] Victorino Graves MD Acute otitis externa of left ear, unspecified type (Primary Dx) 10/02/[address] [address] Kiel Shaffer MD 10/02/2024 Travel 09/28/2024 Refill [facility] [address] [place] [address] NameKiel MD Type 2 diabetes mellitus with other specified complication ([facility]) 09/21/2024 Patient Outreach [facility] [address] [place] [address] NameKiel MD Care Management ([facility] TC #1-lvm) 09/19/2024 9:00 AM EDT Clinical Support [facility] [address] [place] [address] Opal Steiner, RN Long-term current use of opiate analgesic (Primary Dx) 09/19/2024 Refill [facility] [address] [place] [address] Opal Steiner, RN Cerebellar mass; Chronic intractable headache, unspecified headache type 09/19/2024 Travel 09/12/2024 Refill [facility] [address] [place] [address] Name, MD Kiel from Last 3 Months Immunizations Immunization Administration Dates Next Due HepB-CpG 11/05/2022,10/08/2022 Influenza Injectable Quadriv alant Preservative Free IIV4 MDCK 11/05/2022 Influenza Whole 11/06/2010 Influenza injectable quadriv alent IIV4 with preservative 01/09/2016 Influenza injectable quadriv alent preservative free 11/13/2021,01/21/2021,01/07/2020,12/13,01/30/2018 Influenza, IIV3, injectable 02/03/2016,1 ,12/16/2013,02/23,11/02/2012,10/26/2011,01/13/2011 ,11/03/2010,11/21/2009 Influenza, seasonal, injecta ble, preservative free 11/27/2024,11/29/2023 Novel [id number], all formulations 05/31/2009 Pneumococcal Conjugate PCV 20 [...] (233 lb) 12/13/2024 10:36 AM EDT Height 160 cm (5' 3 ) 11/01/2024 12:08 PM EDT Body Mass Index 41.27 11/01/2024 12:08 PM EDT Plan of Treatment Upcoming Encounters Date Type Department Care Team (Late st Contact Info) Description 12/26/2024 10:30 AM EST Medication Management [address] [address] Katlyn Rodriguez, PharmD [address] [place] [phone] 01/28/2025 11:00 AM EST Office Visit [address] [address] Name, MD Kiel [address] [place] [phone] 02/04/2025 11:30 AM EST Clinical Support [address] [address] Opal Steiner, RN Health Maintenance Due Date Last Done Comments CT Colonography 1965 FIT DNA/Cologuard 1965 FIT 1965 FOBT 1965 HIV Screening 1965 Sigmoidoscopy 1965 Hepatitis C Screening 08/22/1983 Pap Smear 1986 HPV/Cotest 08/22/1995 Diabetes: Urine Protein Screening 05/25/2024 05/26/2023, 08/30/2022 Diabetes: Foot Exam 10/19/2024 10/20/2023, 10/20/2023, 10/20/2023, Additional history exists COVID-19 Vaccine ( season) 2024 12/15/2021, 03/13/2021, 08/18/2020, Additional history exists Eye Exam 12/16/2024 12/17/2023, 04/0 06/2022, 03/14/2012 Diabetes: Hemoglobin A1C 01/02/2025 025, 06/28/2024, 03/27/2024, Additional history exists Mammogram 06/02/2025 06/03/2023, 01/03/2019 Alcohol/Substance Use Screening 06/28/2025 06/28/2024 SDOH Screening 2025 2024 Depression Screening 09/04/2025 09/04/2024, 09/05/19 25 Disability Screening 11/26/2025 11/26/2024 Lipid Panel 11/30/2025 11/30/2024, 2 09/2024, 10/25/2023, Additional history exists Tobacco Screening 12/13/2025 12/13/2024 Colonoscopy 07/02/2027 07/01/2022 Colorectal Cancer Screening 07/02/2027 DTaP/Tdap/Td Vaccines (6 - Td or Tdap) 03/30/2034 03/30/2024, 11/13/2021, 11/13/2021, Additional history exists RSV Patients and Patients Aged 60 years or older (1 - 1-dose 75+ series) 2040 Zoster Vaccines Completed 04/01/2022, 05/06/2021 Pneumococcal Vaccine: 50+ Years Completed 10/08/2022, 02/05/2018, 10/03/2013, Additional history exists Hepatitis B Vaccines Completed 11/05/2022, 10/09/19 23 Influenza Vaccine Completed 11/27/2024, , 11/05/2022, Additional history exists Cervical Cancer Screening Discontinued [...] Name Priority Date/Time Associated Diagnosis Comments XR KNEE 3 VIEWS RIGHT Routine 12/13/2024 12:39 PM EDT XR LUMBAR SPINE 2-3 VIEWS Routine 12/13/2024 12:38 PM EDT XR SHOULDER 2+ VIEWS LEFT Routine 12/13/2024 12:34 PM EDT MR WRIST WO CONTRAST RIGHT Routine 12/06/2024 8:31 PM EDT LIPID PANEL, STANDARD Routine 11/30/2024 9:56 AM EDT HEPATIC FUNCTION PANEL Routine 9:56 AM EDT POCT KEELEY-14 URINE DRUG SCREEN Routine 11/15/2024 [...] EDT XR WRIST 3+ VIEWS RIGHT Routine 10/06/2024 5:12 PM EDT POCT GLYCATED HEMOGLOBIN, TOTAL Routine 10/02/2024 11:12 AM EDT Type 2 diabetes mellitus with other specified complication, with long-term current use of insulin (CMS/HCC) POCT KEELYE-14 URINE DRUG SCREEN Routine 09/19/2024 9:09 AM EDT Long-term current use of opiate analgesic BI MAMMOGRAM SCREENING TOMOSYNTHESIS BILATERAL Routine 06/03/2023 8:45 AM EDT ALBUMIN, RANDOM URINE W/CREATININE Routine 05/26/2023 8:27 AM EDT Type 2 diabetes mellitus with other specified complication, with long-term current use of insulin ([facility]) Rib pain on left side HM COLONOSCOPY Routine 07/01/2022 4:37 PM EDT DIABETES EYE EXAM Routine 05/26/2022 from Last 3 Months or Most Recently Relevant to Health Maintenance Results * XR Knee 3 Views Right (12/13/2024 12:39 PM EDT) Anatomical Region Laterality Modality Lower Extremities, Knee Right Radiogra phic Imaging 12/13/2024 12:3 9 PM EDT Narrative 12/13/2024 12:58 PM EDT [address] [address] XRay Report Signed Patient: Sarita Puga MR#: [id number] 92 : 1965 Acct:[id number] Age/Sex: 59 / F ADM Date: 12/13/24 Loc: HO.ED Attending Dr: Ordering Physician: Aurora Beltrán Date of Service: 12/13/24 Procedure(s): XR knee RT 3V Accession Number(s): [id number] cc: Kiel Shaffer MD; Aurora Beltrán Reason for Exam: pain, fall out of bed EXAMINATION: XR KNEE, RIGHT CLINICAL INFORMATION: pain, fall out of bed COMPARISON: Previous x-ray most recent July 2020 TECHNIQUE: Four views of the right knee. FINDINGS: 3 component knee replacement in satisfactory position. Bone alignment is normal. No fracture or dislocation or x-ray evidence of loosening. Normal joint spaces. No joint effusion. XR/XR knee RT 3V IMPRESSION: No fracture or dislocation. Satisfactory appearance of right knee replacement. Electronically signed by: Allison Chavez MD 12/13/2024 12:55 PM EDT RP Dictated By: Allison Chavez MD Signed By: <Electronically signed by Allison Chavez MD in OV> 12/13/24 1255 DD/ 1239 TD/TT: 12/13/24 1246 Construction Equipment Overhauler: SALINAS Procedure Note Donotuseinterpreter, Image - 12/13/2024 [place] [address] XRay Report Signed Patient: Sarita Puga MMR#: [id number] 92 : 1965Acct:[id number] Age/Sex: 59 / FADM Date: 12/13/24 Loc: HO.ED Attending Dr: Ordering Physician: Aurora Beltrán Date of Service: 12/13/24 Procedure(s): XR knee RT 3V Accession Number(s): [id number] cc: Kiel Shaffer MD; Aurora Beltrán Reason for Exam: pain, fall out of bed EXAMINATION: XR KNEE, RIGHT CLINICAL INFORMATION: pain, fall out of bed COMPARISON: Previous x-ray most recent July 2020 TECHNIQUE: Four views of the right knee. FINDINGS: 3 component knee replacement in satisfactory position. Bone alignment is normal. No fracture or dislocation or x-ray evidence of loosening. Normal joint spaces. No joint effusion. XR/XR knee RT 3V IMPRESSION: No fracture or dislocation. Satisfactory appearance of right knee replacement. Electronically signed by: Allison Chavez MD 12/13/2024 12:55 PM EDT RP Dictated By: Allison Chavez MD Signed By: <Electronically signed by Allison Chavez MD in OV> 12/13/24 1255 DD/ 1239 TD/TT: 12/13/24 1246 Construction Equipment Overhauler: SALINAS [facility] External Provider IMG XR PROCEDURES Edited Result - Final * XR Lumbar Spine 2-3 Views (12/13/2024 12:38 PM EDT) Only the most recent of2 resultswithin the time period is included. Anatomical Region Laterality Modality Spine, L-spine Radiographic Diana ging 12/13/2024 12:3 8 PM EDT Narrative 12/13/2024 12:56 PM EDT [place] [address] XRay Report Signed Patient: Sarita Puga MR#: [id number] 92 : 1965 Acct:[id number] Age/Sex: 59 / F ADM Date: 12/13/24 Loc: HO.ED Attending Dr: Ordering Physician: Lacy Saucedo MD Date of Service: 12/13/24 Procedure(s): XR lumbar spine 2-3V Accession Number(s): [id number] cc: Lacy Saucedo MD; Name,Kiel BAILEY Reason for Exam: fall EXAMINATION: XR LUMBOSACRAL SPINE CLINICAL INFORMATION: fall COMPARISON: Previous x-ray October 2024 TECHNIQUE: Three views of the lumbosacral spine. FINDINGS: Bone alignment is normal. No fracture or dislocation. Degenerative spondylosis in the lower thoracic spine and lower lumbar spine. Degenerative disc disease at L4-5. Lower lumbar spine facet arthritis. Mild atherosclerotic disease. Surgical clips in the bilateral pelvis. XR/XR lumbar spine 2-3V IMPRESSION: Degenerative changes. No fracture. Electronically signed by: Allison Chavez MD 12/13/2024 12:53 PM EDT RP Dictated By: Allison Chavez MD Signed By: <Electronically signed by Allison Chavez MD in OV> 12/13/24 1253 DD/ 1238 TD/TT: 12/13/24 1246 Construction Equipment Overhauler: SALINAS Procedure Note Donotuseinterpreter, Image - 12/13/[address] [address] XRay Report Signed Patient: Sarita Puga MMR#: [id number] 92 : 1965Acct:[id number] Age/Sex: 59 / FADM Date: 12/13/24 Loc: HO.ED Attending Dr: Ordering Physician: Lacy Saucedo MD Date of Service: 12/13/24 Procedure(s): XR lumbar spine 2-3V Accession Number(s): [id number] cc: Lacy Saucedo MD; Name,Kiel BAILEY Reason for Exam: fall EXAMINATION: XR LUMBOSACRAL SPINE CLINICAL INFORMATION: fall COMPARISON: Previous x-ray October 2024 TECHNIQUE: Three views of the lumbosacral spine. FINDINGS: Bone alignment is normal. No fracture or dislocation. Degenerative spondylosis in the lower thoracic spine and lower lumbar spine. Degenerative disc disease at L4-5. Lower lumbar spine facet arthritis. Mild atherosclerotic disease. Surgical clips in the bilateral pelvis. XR/XR lumbar spine 2-3V IMPRESSION: Degenerative changes. No fracture. Electronically signed by: Allison Chavez MD 12/13/2024 12:53 PM EDT RP Dictated By: Allison Chavez MD Signed By: <Electronically signed by Allison Chavez MD in OV> 12/13/24 1253 DD/ 1238 TD/TT: 12/13/24 1246 Construction Equipment Overhauler: SALINAS [facility] External Provider IMG XR PROCEDURES Edited Result - Final * XR Shoulder 2+ Views Left (12/13/2024 12:34 PM EDT) Only the most recent of2 resultswithin the time period is included. Anatomical Region Laterality Modality Upper Extremities, Shoulder Left Radi ographic Imaging 12/13/2024 12:3 4 PM EDT Narrative 12/13/2024 12:53 PM EDT [address] [address] XRay Report Signed Patient: Sarita Puga MR#: [id number] 92 : 1965 Acct:[id number] Age/Sex: 59 / F ADM Date: 12/13/24 Loc: HO.ED Attending Dr: Ordering Physician: Aurora Beltrán Date of Service: 12/13/24 Procedure(s): XR shoulder LT min 2V Accession Number(s): [id number] cc: Kiel Shaffer MD; Aurora Beltrán Reason for Exam: pain EXAMINATION: XR SHOULDER, LEFT CLINICAL INFORMATION: pain COMPARISON: Previous x-ray October 2024 TECHNIQUE: AP external rotation, Grashey, scapular Y, and axillary views of the left shoulder. FINDINGS: The bones and soft tissues are normal. No fracture. Glenohumeral and acromioclavicular alignment is anatomic with normal joint space. No abnormal soft tissue calcifications. XR/XR shoulder LT min 2V IMPRESSION: Normal left shoulder. Electronically signed by: Allison Chavez MD 12/13/2024 12:49 PM EDT Dictated By: Allison Chavez MD Signed By: <Electronically signed by Allison Chavez MD in OV> 12/13/24 1249 DD/ 1234 TD/TT: 12/13/24 1246 Construction Equipment Overhauler: SALINAS Procedure Note Donotuseinterpreter, Image - 12/13/[address] [address] XRay Report Signed Patient: Sarita Puga MMR#: [id number] 92 : 1965Acct:[id number] Age/Sex: 59 / FADM Date: 12/13/24 Loc: HO.ED Attending Dr: Ordering Physician: Aurora Beltrán Date of Service: 12/13/24 Procedure(s): XR shoulder LT min 2V Accession Number(s): [id number] cc: Kiel Shaffer MD; Aurora Beltrán Reason for Exam: pain EXAMINATION: XR SHOULDER, LEFT CLINICAL INFORMATION: pain COMPARISON: Previous x-ray October 2024 TECHNIQUE: AP external rotation, Grashey, scapular Y, and axillary views of the left shoulder. FINDINGS: The bones and soft tissues are normal. No fracture. Glenohumeral and acromioclavicular alignment is anatomic with normal joint space. No abnormal soft tissue calcifications. XR/XR shoulder LT min 2V IMPRESSION: Normal left shoulder. Electronically signed by: Allison Chavez MD 12/13/2024 12:49 PM EDT Dictated By: Allison Chavez MD Signed By: <Electronically signed by Allison Chavez MD in OV> 12/13/24 1249 DD/ 1234 TD/TT: 12/13/24 1246 Construction Equipment Overhauler: SALINAS [facility] External Provider IMG XR PROCEDURES Edited Result - Final * MR Wrist w/o Contrast Right (12/06/2024 8:31 PM EDT) Anatomical Region Laterality Modality Upper Extremities, Wrist Right Magneti c Resonance 12/06/2024 8:31 PM EDT Narrative 12/06/2024 8:33 PM EDT [place] [address] Magnetic Resonance Report Signed Patient: Sarita Puga MR#: [id number] 92 : 1965 Acct:[id number] Age/Sex: 59 / F ADM Date: 12/06/24 Loc: HO.MRI Attending Dr: Jose SEGURA Ordering Physician: Jose Hernandez Date of Service: 12/06/24 Procedure(s): MR wrist RT wo con Accession Number(s): [id number] cc: Jose Hernandez; Kiel Shaffer MD Reason for Exam: M79.643 - Pain in unspecified hand CLINICAL HISTORY: M79.643 - Pain in unspecified hand. Significant snuffbox tenderness of R wrist MR right wrist without contrast Comparison: DX/SR - XR WRIST NAVICULAR RIGHT - 11/16/24 11:32 EDT DX/SR - XR WRIST NAVICULAR RIGHT - 10/26/24 14:40 EDT DX/SR - XR WRIST 3 OR MORE VIEWS RIGHT - 10/17/24 11:30 EDT CR - XR WRIST RT MIN 3V - 10/06/24 15:51 EDT Findings: Fracture of the styloid process of the distal radius. Bone marrow edema in the carpal bones, most prominent in the scaphoid and trapezoid, however also involving the trapezium, lunate, capitate and hamate. The musculature is normal in signal and bulk. Unremarkable vessels. Mild negative ulnar variance. The distal radioulnar joint is intact. There is no carpal instability. Small distal radial ulnar joint effusion. Trace carpal joint effusion. There is fluid in the pre styloid recess. There is increased signal in the scapholunate and lunotriquetral without discontinuity. There is increased signal in the triangular fibrocartilage complex with suspected of discontinuity of the triangular ligament. Normal extensor compartment. Enlarged median nerve measuring 0.7 x 0.5 cm. There is mild increased signal and flexor digitorum profundus and superficialis without tear. Otherwise normal carpal tunnel, flexor retinaculum, flexor tendons and Guyon canal. Preserved first carpometacarpal, scaphotrapezotrapezoidal and pisiform-triquetral joints. Impression: Fracture of the styloid process of the distal radius. Bone marrow edema in the carpal bones, posttraumatic versus secondary to altered biomechanics. Mild negative ulnar variance. Small distal radial ulnar joint effusion, trace carpal joint effusion and fluid in the prestyloid recess, posttraumatic. Signal abnormality in the scapholunate and lunotriquetral ligaments may indicate sprain. Suspect tear of the triangular ligament. Enlarged median nerve which could be posttraumatic. Mild tendinopathy of flexor digitorum profundus and superficialis This document has been electronically signed by: Tejal Castanon MD on 12/06/2024 20:31:46 Dictated By: Tejal Sy MD Signed By: <Electronically signed by Tejal Sy MD in OV> 12/06/242032 DD/ 30 TD/TT: 12/06/242030 Construction Equipment Overhauler: Procedure Note Donotuseinterpreter, Image - 12/06/[address] [address] Magnetic Resonance Report Signed Patient: Sarita Puga MMR#: [id number] 92 : 1965Acct:[id number] Age/Sex: 59 / FADM Date: 12/06/24 Loc: HO.MRI Attending Dr: Jose SEGURA Ordering Physician: Jose Hernandez Date of Service: 12/06/24 Procedure(s): MR wrist RT wo con Accession Number(s): [id number] cc: Jose Hernandez; Name,Kiel BAILEY Reason for Exam: M79.643 - Pain in unspecified hand CLINICAL HISTORY: M79.643 - Pain in unspecified hand. Significant snuffboxtenderness of R wrist MR right wrist without contrast Comparison: DX/SR - XR WRIST NAVICULAR RIGHT - 11/16/24 11:32 EDT DX/SR - XR WRIST NAVICULAR RIGHT - 10/26/24 14:40 EDT DX/SR - XR WRIST 3 OR MORE VIEWS RIGHT - 10/17/24 11:30 EDT CR - XR WRIST RT MIN 3V - 10/06/24 15:51 EDT Findings: Fracture of the styloid process of the distal radius. Bone marrow edema in the carpal bones, most prominent in the scaphoid and trapezoid, however also involving the trapezium, lunate, capitate and hamate. The musculature is normal in signal and bulk. Unremarkable vessels. Mild negative ulnar variance. The distal radioulnar joint is intact. There is no carpal instability. Small distal radial ulnar joint effusion. Trace carpal joint effusion. There is fluid in the pre styloid recess. There is increased signal in the scapholunate and lunotriquetral without discontinuity. There is increased signal in the triangular fibrocartilage complex with suspected of discontinuity of the triangular ligament. Normal extensor compartment. Enlarged median nerve measuring 0.7 x 0.5 cm. There is mild increased signal and flexor digitorum profundus and superficialis without tear. Otherwise normal carpal tunnel, flexor retinaculum, flexor tendons and Guyon canal. Preserved first carpometacarpal, scaphotrapezotrapezoidal and pisiform-triquetral joints. Impression: Fracture of the styloid process of the distal radius. Bone marrow edema in the carpal bones, posttraumatic versus secondary to altered biomechanics. Mild negative ulnar variance. Small distal radial ulnar joint effusion, trace carpal joint effusion and fluid in the prestyloid recess, posttraumatic. Signal abnormality in the scapholunate and lunotriquetral ligaments may indicate sprain. Suspect tear of the triangular ligament. Enlarged median nerve which could be posttraumatic. Mild tendinopathy of flexor digitorum profundus and superficialis This document has been electronically signed by: Tejal Castanon MD on 12/06/2024 20:31:46 Dictated By: Tejal Sy MD Signed By: <Electronically signed by Tejal Sy MD in OV> 12/06/242032 DD/ 30 TD/TT: 12/06/242030 Construction Equipment Overhauler: [facility] External Provider IMG MRI PROCEDURES Final Result * Hepatic Function Panel (11/30/2024 9:56 AM EDT) Bilirubin, Total 0.5 0.0 - 1.0 mg/dL [facility] Bilirubin, Direct 0.2 0.0 - 0.5 mg/dL [facility] Aspartate Amino Transferase 23 5 - 31 U/L [facility] Comment:Slight Hemolysis.Int erpret result with caution. Alanine Aminotransferase 21 0 - 31 U/L [facility] Total Protein 6.9 6.5 - 8.0 g/dL [facility] Albumin Level 4.4 3.5 - 5.0 g/dL [facility] Alkaline Phosphatase 75 39 - 117 U/L [facility] 11/30/2024 9:56 AM EDT 11/30/2024 11:32 AM EDT Kiel Shaffer MD LAB BLOOD ORDERABLES Final Resul t [facility] [address] [place] [address] [phone] * (ABNORMAL) Lipid Panel, Standard (11/30/2024 9:56 AM EDT) Triglycerides 122 <150 mg/dL [facility] Comment:Desirable Triglyceri de: less than 150 mg/dLBorderline High Triglyceride 150-199 mg/dLHigh Triglyceride: 200-499 mg/dLVery High Triglyceride: greater than or equal to 5OO mg/dL Cholesterol 151 <200 mg/dL [facility] Comment:Desirable Cholestero l: less than 200 mg/dLBorderline High Cholesterol: 200-239 mg/dLHigh Cholesterol: greater than 239 mg/dL LDL Cholesterol Calculated 91 <100 mg/dL [facility] Comment:Desirable LDL: less than 100 mg/dLNear Optimal/Above Optimal LDL: 110- 129 mg/dLBorderline High LDL: 130-159 mg/dLHigh LDL: 160-189 mg/dLVery High LDL: greater than or equal to 190 mg/dL HDL Cholesterol 36(L) >40 mg/dL [facility] Comment:Desirable HDL: great er than 40 mg/dL Note: This HDL assay may give artificially low results in patients with liver disease. 11/30/2024 9:56 AM EDT 11/30/2024 11:32 AM EDT us Kiel Name LAB BLOOD ORDERABLES Final Resul t [facility] [address] [place] [address] [phone] * POCT KEELEY-14 Urine Drug Screen (11/15/2024 [...] / Unknown 11/15/2024 11:43 AM EDT Narrative Obdulia Opal, RN - 11/15/2024 11:43 AM EDT UTOX cup Lot#[id number] Exp. 11/27/25 Internal Pass Control us Kielramy Shaffer MD POINT OF CARE TEST ENTER/EDIT OR DERABLES Final Result * XR Hand 3+ Views Left (11/07/2024 12:00 PM EDT) Anatomical Region Laterality Modality Upper Extremities, Hand Left Radiogra phic Imaging 11/07/2024 12:0 0 PM EDT Narrative 11/07/2024 12:20 [place] [address] XRay Report Signed Patient: Sarita Puga MR#: [id number] 92 : 1965 Acct:[id number] Age/Sex: 59 / F ADM Date: 11/07/24 Loc: HO.HHCX Attending Dr: Lorenzo Chavez MD Ordering Physician: Lorenzo Chavez MD Date of Service: 11/07/24 Procedure(s): XR hand LT min 3V Accession Number(s): [id number] cc: Lorenzo Chavez MD Reason for Exam: [...] 12:17 PM EDT RP Dictated By: Zohaib Murrya MD Signed By: <Electronically signed by Zohaib Murray MD in OV> 11/07/24 1217 DD/ 1200 TD/TT: 11/07/24 1202 Construction Equipment Overhauler: Procedure Note Donotuseinterpreter, Image - 11/07/2024 [facility] [address] [place] [address] XRay Report Signed Patient: Sarita Puga MMR#: [id number] 92 : 1965Acct:[id number] Age/Sex: 59 / FADM Date: 11/07/24 Loc: HO.HHCX Attending Dr: Lorenzo Chavez MD Ordering Physician: Lorenzo Chavez MD Date of Service: 11/07/24 Procedure(s): XR hand LT min 3V Accession Number(s): [id number] cc: Lorenzo Chavez MD Reason for Exam: [...] 11/07/24 1217 DD/ 1200 TD/TT: 11/07/24 1202 Construction Equipment Overhauler: Lorenzo Chavez MD IMG XR PROCEDURES Edited Result - Final * XR Hand 3+ Views Right (10/06/2024 5:17 PM EDT) Anatomical Region Laterality Modality Upper Extremities, Hand Right Radiogra phic Imaging 10/06/2024 5:17 PM EDT Narrative 10/06/2024 5:18 PM EDT [address] [address] XRay Report Signed Patient: Sarita Puga MR#: [id number] 92 : 1965 Acct:[id number] Age/Sex: 59 / F ADM Date: 10/06/24 Loc: HO.ED Attending Dr: Ordering Physician: Justina Perez NP Date of Service: 10/06/24 Procedure(s): XR hand RT min 3V Accession Number(s): [id number] cc: Name,Kiel BAILEY; Justina Perez NP CLINICAL [...] in OV> 10/06/241717 DD/ 16 TD/TT: 10/06/241716 Construction Equipment Overhauler: Procedure Note Donotuseinterpreter, Image - 10/06/[address] [address] XRay Report Signed Patient: Sarita Puga MMR#: [id number] 92 : 1965Acct:[id number] Age/Sex: 59 / FADM Date: 10/06/24 Loc: HO.ED Attending Dr: Ordering Physician: Justina Perez NP Date of Service: 10/06/24 Procedure(s): XR hand RT min 3V Accession Number(s): [id number] cc: Name,Kiel BAILEY; Justina Perez NP CLINICAL [...] in OV> 10/06/241717 DD/ 16 TD/TT: 10/06/241716 Construction Equipment Overhauler: [facility] External Provider IMG XR PROCEDURES Edited Result - Final * XR Wrist 3+ Views Right (10/06/2024 5:12 PM EDT) Anatomical Region Laterality Modality Upper Extremities, Wrist Right Radiogr aphic Imaging 10/06/2024 5:12 PM EDT Narrative 10/06/2024 5:14 PM EDT [place] [address] XRay Report Signed Patient: Sarita Puga MR#: [id number] 92 : 1965 Acct:[id number] Age/Sex: 59 / F ADM Date: 10/06/24 Loc: HO.ED Attending Dr: Ordering Physician: Justina Perez NP Date of Service: 10/06/24 Procedure(s): XR wrist RT min 3V Accession Number(s): [id number] cc: Kiel Shaffer MD; Justina Perez NP [...] in OV> 10/06/241712 DD/ 11 TD/TT: 10/06/241711 Construction Equipment Overhauler: Procedure Note Donotuseinterpreter, Image - 10/06/2024 [place] [address] XRay Report Signed Patient: Sariat Puga MMR#: [id number] 92 : 1965Acct:[id number] Age/Sex: 59 / FADM Date: 10/06/24 Loc: .ED Attending Dr: Ordering Physician: Justina Perez NP Date of Service: 10/06/24 Procedure(s): XR wrist RT min 3V Accession Number(s): [id number] cc: Kiel Shaffer MD; Justina Perez NP [...] in OV> 10/06/241712 DD/ 11 TD/TT: 10/06/241711 Construction Equipment Overhauler: [facility] External Provider IMG XR PROCEDURES Edited [...] AM EDT Narrative 06/30/2023 10:24 PM EDT [address] [place] [address] Mammography Report Signed Patient: Sarita Puga MR#: [id number] 92 : 1965 Acct:[id number] Age/Sex: 57 / F ADM Date: 06/03/23 Loc: HO.MAMMO Attending Dr: Kiel Shaffer MD Ordering Physician: Kiel Shaffer MD Results: 1Negative Date of Service: 06/03/23 Follow Up: 1 Year From Orig inal Mammogram Procedure(s): MM tomosynthesis screening BI Accession Number(s): [id number] cc: Kiel Shaffer MD EXAMINATION: MM SCREENING [...] in OV> 06/30/23 2220 DD/ 0845 TD/TT: Construction Equipment Overhauler: Procedure Note Donotuseinterpreter, Image - 06/30/2023 [facility] [address] [place], [place] [address] Mammography Report Signed Patient: Sarita Puga MMR#: [id number] 92 : 1965Acct:[id number] Age/Sex: 57 / FADM Date: 06/03/23 Loc: .MAMMO Attending Dr: Kiel Shaffer MD Ordering Physician: Kiel Shaffer MDResults: 1Negative Date of Service: 06/03/23Follow Up: 1 Year From Orig inal Mammogram Procedure(s): MM tomosynthesis screening BI Accession Number(s): [id number] cc: Kiel Shaffer MD EXAMINATION: MM SCREENING [...] in OV> 06/30/23 2220 DD/ 0845 TD/TT: Construction Equipment Overhauler: us Kiel Shaffer MD IMG BI PROCEDURES Edited Result - Final * Albumin, Random Urine W/Creatinine (05/26/2023 8:27 AM EDT) Creatinine, Urine 185.88 mg/dL [facility] Microalbumin Urine 23.0 mg/L [facility] Microalbum Creatinine Ratio Ur 12.3 <30 ug/mg cr [facility] Comment:Albumin/Creatinine R atio Reference Ranges: Normal: < 30 ug/mg creatinine Microalbuminuria: 30 - 300 ug/mg creatinineClinical Albuminuria: > 300 ug/mg creatinine Urine (Urine, Random) 05/26/2023 8:27 AM EDT 05/26/2023 11:19 AM EDT us Kiel Shaffer MD LAB URINE ORDERABLES Final Resul t [facility] [address] [place] [phone] * Colonoscopy (07/01/2022 4:37 PM EDT) Colonoscopy Normal Normal Narrative Emely Devine - 07/01/2022 4:37 PM EDT Recommended 5 year follow up [place] Glo Chong MD HEALTH MAINTENANCE Final Result * Diabetes Eye Exam (05/26/2022) Eye Exam Normal Normal Result Rosita Shaffer MD HEALTH MAINTENANCE Final Result from Last 3 Months or Most Recently Relevant to Health Maintenance Insurance [place] [address] [place] [facility] [employer] Care Teams Coding Educator Relationship Specialty Start Date End Date Name, MD Kiel [address] [place], [place] PCP - General Family Medicine 07/15/15 Katlyn Rodriguez PharmD [address] [place] [address] Pharmacist Internal Medicine 10/08/22 Marta Ovalle Retail Shift SupervisorPower Saw Operator 05/25/23
--- OUTSIDE RECORDS SUMMARY | 2024-12-13 15:24 | XMS_ITS | Clinical Summary ---
Author Organization [address] [facility] Address [address] [place] [address] Phone Care Team Providers Care Vice President Payer Name Role Phone Name, Kiel BAILEY Primary Care Provider [phone] Allergies Active Allergy Reactions Criticality Noted Date [...] Active medical supply, miscellaneous (MISCELLANEOUS MEDICAL SUPPLY [facility]) ULTICARE SHORT PEN NEEDLES 31G X 8 MM USE FOUR TIMES DAILY TO INJECT insulin WITH A MEAL AND AT BEDTIME 06/23/19 16 Active blood sugar diagnostic (FreeStyle Lite Strips) test strip USE TO TEST FINGER STICK BLOOD SUGAR TWICE DAILY DIRECTED 06/23/19 16 Active medical supply, miscellaneous (MISCELLANEOUS MEDICAL SUPPLY MISC) [facility]. DEVICES (COMMODE BEDSIDE) MIS 1 Device by Does not apply route as needed (voiding/bm). 12/11/19 15 Active ASPIRIN ORAL Take 1 Tab by mouth daily. 11/28/19 15 Active lancets (Sure Comfort Lancets) 30 gauge [facility] USE TO TEST FINGER STICK BLOOD SUGAR [...] Problem Noted Date Diagnosed Date COPD exacerbation ([facility] V24, [facility] V28) Abnormal nuclear stress test 11/06/2014 Rib fracture 12/24/2013 Overview (12/12/2023): Non displaced, probable froacture on the right ninth and tenth Abdominal pain 08/15/2013 Lipoma of abdominal wall 11/02/2011 Visual field defect 03/29/2011 Cocaine abuse, episodic use ([facility] V24, [facility] V28) 06/17/2010 Low back pain radiating to left leg 10/08/2009 Overview (12/12/2023): The patient follows with [facility] and is treated with injections to the LS. Asthmatic bronchitis , chronic ([facility] V24, [facility] V28) 07/07/2009 Overview (12/12/2023): Severe and worse in the spring. Last hospitalazion in May and 3 ER visits Hospital 08/02 Known medical problems 06/05/2009 Tobacco use disorder 06/05/2009 Hypertriglyceridemia 06/05/2009 Morbid obesity ([facility] V24, [facility] V28) 2009 Overview (12/12/2023): BMI [...] TOTAL HYSTERECTOMY WITH BSO; COMMENT: for bleeding, [facility] Medical History Medical History Date Comments Type II or unspecified type diabetes mellitus with unspecified complication, not stated as uncontrolled DX:Type II or unspecified t ype diabetes mellitus with unspecified complication, not stated as uncontrolled Unspecified essential hypertension DX:Unspecified essential hypertension Tobacco abuse DX:Tobacco abuse RAD (reactive airway disease) DX :RAD (reactive airway disease) Morbid obesity ([facility] V24, [facility] V28) DX:Morbid obesity ([facility]) Asthmatic bronchitis , chron ic ([facility] V24, [facility] V28) 07/07/2009 DX:Asthmatic bronchitis , ch ronic ([facility]) Hypertriglyceridemia 06/05/2009 DX:Hypertri glyceridemia Rib fracture 12/24/2013 DX:Rib fracture Family History Medical History Relation Name Comments Blindness Brother 1 Breast cancer Maternal Grandmother Cataracts Maternal Grandmother Blindness Mother Glaucoma Neg Hx Macular degeneration Neg Hx Strabismus Neg Hx Relation Name Status Comments Brother 1 Brother 2 MD Brother 3 Alive 6 brothers are diabetic [...] Upcoming Encounters Date Type Department Care Team ([facility] st Contact Info) Description 01/31/2025 9:00 AM EST Office Visit Orthopedic Surgery - [place] [address] [phone] Wesley Garcia, MOE [address] [phone] Health Maintenance Due Date Last Done Comments [...] LAB CHEMISTRY METHOD 02/06/2024 3:36 AM EST [facility] Comment:Calculation based on the Chronic Kidney Disease Epidemiology Collaboration (CKD-EPI) equation refit without adjustment for race. BUN/Creatinine Ratio 23.9 LAB CHEMISTRY METHOD 02/06/2024 3:36 AM EST [facility] Calcium 9.3 8.5 - 10.5 mg/dL LAB CHEMISTRY METHOD 02/06/2024 3:36 AM EST [facility] Blood Venous blood specimen / Unknown Venipuncture / Unknown 02/06/2024 2:59 AM EST 02/06/2024 3:13 AM EST Result [facility] Cindy SEGURA LAB BLOOD ORDERABLES Final R esult [facility] [address] [place] [address], * (ABNORMAL) Hemoglobin A1c (11/20/2014) Pathologist [facility] Hemoglobin A1C 7.5(A) 4.0 - 6.0 % Blood Venous blood specimen / Unknown Result [facility] Historical Provider LAB BLOOD ORDERABLES Alis l Result * Urine Albumin Creatinine Ratio (05/10/2014) Pathologist [facility] Urine Albumin Creatinine Ratio abstracted Result [facility] Historical Provider HEALTH MAINTENANCE Final Result * (ABNORMAL) Lipid panel (05/10/2014) [facility] LDL/HDL Ratio 4 0 - 4 Triglycerides 360(A) 0 - 150 mg/dL Cholesterol 179 0 - 200 mg/dL HDL 42 >=40 mg/dL LDL Cholesterol 65 0 - 100 mg/dL Blood Venous blood specimen / Unknown Result [facility] Historical Provider LAB BLOOD ORDERABLES Alis l Result * Hepatitis C Screening (10/10/2013) Pathologist [facility] Hepatitis C Screening abstracted us Historical Provider HEALTH MAINTENANCE Final Result from Last 3 Months or Most Recently Relevant to Health Maintenance Insurance [place] Advance Directives * Full Code - Default [...] currently active code status orders. Care Teams Vice President Payer Relationship Specialty Start Date End Date Name, MD Kiel [address] [place], [place] PCP - General Internal Medicine 08/28/15
--- OUTSIDE RECORDS SUMMARY | 2024-12-13 15:24 | XMS_ITS | Encounter Summary ---
Author Organization [employer] Address [address] [facility] [address] [place] [address] Care Team Providers Care Photoradio Operator Name Role Phone Name, Kiel BAILEY Primary Care Provider [phone] Katlyn Rodriguez PharmD Unavailable [phone] Reason for Visit * Reason Comments Med Refill Encounter Details Date Type Department Care Team ([facility] Contact Info) Description 12/13/2024 Refill [facility] [address] [place] [address] Name, MD Kiel [address] [place] [address] Cerebellar mass; Chronic intractable headache, unspecified headache [...] Description 12/26/2024 10:30 AM EST Medication Management [address] [address] Katlyn Rodriguez, PharmD [address] [place] [phone] 01/28/2025 11:00 AM EST Office Visit [address] [address] Name, MD Kiel [address] [place] [address] 02/04/2025 11:30 AM EST Clinical Support [address] [address] Opal Steiner RN documented as of this [...] documented as of this encounter Care Teams Photoradio Operator Relationship Specialty Start Date End Date Name, MD Kiel [address] [place] [address] PCP - General Family Medicine 07/15/15 Katlyn Rodriguez, PharmD [address] [place] [address] Pharmacist Internal Medicine 10/08/22 Marta Ovalle Dedicated Local Truck DriverRoustabout 05/25/23 documented as of this encounter
--- OUTSIDE RECORDS SUMMARY | 2024-12-13 15:25 | XMS_ITS | Clinical Summary ---
Author Organization [facility] Address [address] [place] [address] [place] [phone] Phone Care Team Providers Care Steam Service Inspector Name Role Phone Unavailable Primary Care Provider [...] Devices Not on file Insurance [employer] [address] [place] [address] [place] [address] [place] [address] [address] C3 ACO C3 ACO C3 ACO C3 ACO C3 ACO Additional Source Comments The information contained in this document represents components of the legal health record. It is not the complete legal health record.[facility]
--- OUTSIDE RECORDS SUMMARY | 2024-12-13 15:25 | XMS_ITS | Encounter Summary ---
Author Organization [facility] Address [address] [place] [address] Phone Care Team Providers Care Confectionery Laboratory Manager Name Role Phone Unavailable Primary Care Provider Unavailabl e Encounter Details Date Type Department Care Team (Latest Contact Info) Description 01/04/2020 Ancillary Orders [facility] [address] [place] [address] [place] [address] Bright Jesus, DO [address] [place] [address] Chest pain, unspecified type Social History Tobacco [...] is not the complete legal health record.[facility]
--- OUTSIDE RECORDS SUMMARY | 2024-12-13 15:25 | XMS_ITS | Encounter Summary ---
Author Organization [employer] Address [address] [place] [address] 7t [place] [address] Care Team Providers Care Kiln Firer Helper Name Role Phone Name, Kiel BAILEY Primary Care Provider Katlyn Rodriguez PharmD Unavailable [phone] Nehal Ann RN Unavailable Unavailable Ania Spencer Unavailable Opal Leyva Unavailable [phone] Reason for Visit * Reason Onset Date Comments FYI 08/03/2024 Encounter Details Date Type Department Care Team (Late st Contact Info) Description 08/03/2024 Telephone [facility] MEDICINE [address] [place], [place] [phone] Name, MD Kiel [address] [place], [place] [phone] FY Social History Tobacco Use Types Packs/Day Years [...] pull up prescription. Any questions contact Em [phone] documented in this encounter Plan of Treatment Upcoming Encounters Date Type Department Care Team (Giovanna lizarraga Contact Info) Description 12/26/2024 10:30 AM EST Medication Management [address] [phone] Puia, Katlyn, PharmD [address] [place] [address] 01/28/2025 11:00 AM EST Office Visit [address] [phone] Kiel Shaffer MD [address] [place] [address] 02/04/2025 11:30 AM EST Clinical Support [address] [phone] Opal Steiner RN documented as of this [...] as of this encounter Care Teams Kiln Firer Helper Relationship Specialty Start Date End Date Kiel Shaffer MD [address] [place] [address] PCP - General Family Medicine 07/15/15 Puia, Katlyn, PharmD [address] [place] [address] Pharmacist Internal Medicine 10/08/22 Nehal Ann RN 230 [place] [address] Registered Nurse Family Medicine 08/20/24 10/29/24 Ania Spencer 08/20/24 11/26/24 Opal Leyva Registered Nurse 10/29/24 11/26/24 Marta Ovalle Pharmacy Intake TechnicianSand Mill Operator Core Sand 05/25/23 documented as of this encounter
--- OUTSIDE RECORDS SUMMARY | 2024-12-13 15:25 | XMS_ITS | Encounter Summary ---
Author Organization [employer] Address [address] [place] [address] 7t [place] [address] Care Team Providers Care Director Of Industrial Relations Name Role Phone Name, Kiel BAILEY Primary Care Provider [phone] Katlyn Rodriguez PharmD Unavailable [phone] Nehal Ann RN Unavailable Unavailable Ania Spencer Unavailable Opal Leyva Unavailable [phone] Reason for Visit * Reason Onset Date Comments FYI 08/03/2024 Encounter Details Date Type Department Care Team (Late st Contact Info) Description 08/03/2024 Telephone [facility] MEDICINE 230 [place], [place] [phone] Name, MD Kiel 230 [place], [place] [phone] FY Social History Tobacco Use Types Packs/Day [...] will be admitting pt for OT and assisted. If any questions you can contact pt at [phone], documented in this encounter Plan of Treatment Upcoming Encounters Date Type Department Care Team (Late st Contact Info) Description 12/26/2024 10:30 AM EST Medication Management [facility] MEDICINE 230 [place] [address] Katlyn Rodriguez, PharmD 230 [place], [place] [phone] 01/28/2025 11:00 AM EST Office Visit [address] [address] Name, MD Kiel [address] [place] [address] 02/04/2025 11:30 AM EST Clinical Support [address] [address] Opal Steiner, MARINA documented as of this [...] of this encounter Care Teams Director Of Industrial Relations Relationship Specialty Start Date End Date Kiel Shaffer MD [address] [place] [address] PCP - General Family Medicine 07/15/15 Puia, Katlyn, PharmD [address] [place] [address] Pharmacist Internal Medicine 10/08/22 Nehal Ann, MARINA [address] [place] [address] Registered Nurse Family Medicine 08/20/24 10/29/24 Ania Spencer 08/20/24 11/26/24 Opal Leyva Registered Nurse 10/29/24 11/26/24 Marta Ovalle Cognos AnalystReference Archivist 05/25/23 documented as of this encounter
--- OUTSIDE RECORDS SUMMARY | 2024-12-13 15:25 | XMS_ITS | Encounter Summary ---
Author Organization [employer] Address [address] [place] [address] 7t [place] [address] Care Team Providers Care Note Teller Name Role Phone Name, Kiel BAILEY Primary Care Provider [phone] Katlyn Rodriguez PharmD Unavailable [phone] Nehal Ann RN Unavailable Unavailable Ania Spencer Unavailable Opal Leyva Unavailable [phone] Encounter Details Date Type Department Care Team (Late Contact Info) Description 10/29/2022 Abstract [facility] MEDICINE [address] [place] [address] Name, MD Kiel [address] [place] [address] Social History Tobacco Use Types Packs/Day Years [...] Encounters Date Type Department Care Team ([facility] Contact Info) Description 12/26/2024 10:30 AM EST Medication Management [address] [address] Katlyn Rodriguez PharmD [address] [place] [address] 01/28/2025 11:00 AM EST Office Visit [address] [address] Name, MD Kiel [address] [place] [address] 02/04/2025 11:30 AM EST Clinical Support [address] [phone] Opal Steiner RN documented as of this [...] documented as of this encounter Care Teams Note Teller Relationship Specialty Start Date End Date Name, MD Kiel [address] [place] [address] [phone] PCP - General Family Medicine 07/15/15 Katlyn Rodriguez, PharmD [address] [place] [address] Pharmacist Internal Medicine 10/08/22 Nehal Ann RN 230 [place] [address] Registered Nurse Family Medicine 08/20/24 10/29/24 Ania Spencer 08/20/24 11/26/24 Opal Leyva Registered Nurse 10/29/24 11/26/24 Marta Ovalle Mineral Wool Insulation SupervisorNight Patrol Inspector 05/25/23 documented as of this encounter
--- OUTSIDE RECORDS SUMMARY | 2024-12-13 15:25 | XMS_ITS | Encounter Summary ---
Author Organization [employer] Address [address] [facility] 7t [place] [address] Care Team Providers Care Weaver Axminster Name Role Phone Name, Kiel BAILEY Primary Care Provider [phone] Katlyn Rodriguez PharmD Unavailable [phone] Nehal Ann RN Unavailable Unavailable Ania Spencer Unavailable Opal Leyva Unavailable [phone] Reason for Visit * Reason Onset Date Comments Nurse Triage 07/04/2024 Encounter Details Date Type Department Care Team (Late st Contact Info) Description 07/04/2024 Telephone [facility] MEDICINE 230 [place], [place] [phone] Name, MD Kiel 230 [place], [place] [phone] Nurse Triage Social History Tobacco Use Types [...] EDT Triage call with [facility] [place] [id number]. Pt reports headache over the entire head. No involvement with eye area. BP is 104/60. Pt has been seen by neurologist at [facility] and is being tested for possible tumor. Pt was prescribed dexamethasone byneurologist. Pt pain is moderate . Pt has been prescribed roxicodone 10mg starting 06/28/24 but, reports pharmacy wouldn't fill prescription last time contacted. Pt daughter is speaking for Pt at this time. Daughter is advised to call [facility] for prescription of roxicodone which [...] caller accepted this outcome. Contact pt at [phone] (sami) documented in this encounter Plan of Treatment Upcoming Encounters Date Type Department Care Team ([facility] st Contact Info) Description 12/26/2024 10:30 AM EST Medication Management [address] [address] Puia, Katlyn, PharmD [address] [place] [address] 01/28/2025 11:00 AM EST Office Visit [address] [address] Name, MD Kiel [address] [place] [address] 02/04/2025 11:30 AM EST Clinical Support [address] [address] Opal Steiner RN documented as of this [...] as of this encounter Care Teams Weaver Axminster Relationship Specialty Start Date End Date Name, MD Kiel 230 [place] [address] PCP - General Family Medicine 07/15/15 Katlyn Rodriguez, AngieD 230 [place] [address] Pharmacist Internal Medicine 10/08/22 Nehal Ann RN 230 [place] [address] Registered Nurse Family Medicine 08/20/24 10/29/24 Ania Spencer 08/20/24 11/26/24 Opal Leyva Registered Nurse 10/29/24 11/26/24 Marta Ovalle Conductor PullmanParachute Folder 05/25/23 documented as of this encounter
--- OUTSIDE RECORDS SUMMARY | 2024-12-13 15:25 | XMS_ITS | Encounter Summary ---
Author Organization [employer] Address [address] [facility] 7t [place] [address] Care Team Providers Care Technologies Division Chair Name Role Phone Name, Kiel BAILEY Primary Care Provider [phone] Katlyn Rodriguez PharmD Unavailable [phone] Nehal Ann RN Unavailable Unavailable Ania Spencer Unavailable Opal Leyva Unavailable [phone] Reason for Visit * Reason Onset Date Comments Durable Medical Equipment 01/24/2023 Encounter Details Date Type Department Care Team (Late st Contact Info) Description 01/24/2023 Telephone [facility] MEDICINE 230 [place], [place] [phone] Name, MD Kiel 230 [place] [address] Durable Medical Equipment Social History Tobacco Use [...] to errol. Any questions, contact pt at [phone] documented in this encounter Plan of Treatment Upcoming Encounters Date Type Department Care Team (Late st Contact Info) Description 12/26/2024 10:30 AM EST Medication Management [address] [address] Katlyn Rodriguez, PharmD [address] [place] [address] 01/28/2025 11:00 AM EST Office Visit [address] [address] Name, MD Kiel [address] [place] [address] 02/04/2025 11:30 AM EST Clinical Support [address] [address] Opal Steiner, MARINA documented as of this [...] documented as of this encounter Care Teams Technologies Division Chair Relationship Specialty Start Date End Date Name, MD Kiel 230 [place] [address] PCP - General Family Medicine 07/15/15 Puia, Katlyn, PharmD 230 [place] [address] Pharmacist Internal Medicine 10/08/22 Nehal Ann RN [address] [place] [address] Registered Nurse Family Medicine 08/20/24 10/29/24 Ania Spencer 08/20/24 11/26/24 Opal Leyva Registered Nurse 10/29/24 11/26/24 Marta Ovalle Technology And Engineering TeacherNeurocritical Care Physician 05/25/23 documented as of this encounter
--- OUTSIDE RECORDS SUMMARY | 2024-12-13 15:25 | XMS_ITS | Encounter Summary ---
Author Organization [employer] Address [address] [place] [address] 7t [place] [address] Care Team Providers Care Chief Nurse Executive Name Role Phone Name, Kiel BAILEY Primary Care Provider Katlyn Rodriguez PharmD Unavailable Nehal Ann RN Unavailable Unavailable Ania Spencer Unavailable Opal Leyva Unavailable [phone] Reason for Referral * Consultation (Routine) - Closed Specialty Diagnoses / Procedures Referred By Carroll hoover Referred To Contact Occupational Therapy Diagnoses Left arm weakness Lizzie Alfaro NP [address] [place] [address] Phone: tel: fax: [facility] [address] [place] [address] Phone: tel: fax: Referral ID Status Reason Start Date Expiration Date V isits Requested Visits Authorized [id number] Closed Specialty Services Required 09/06/2024 09/06/2025 20 20 Encounter Details Date Type Department Care Team (Late st Contact Info) Description 09/06/2024 Orders Only [facility] MEDICINE 230 [place] [address] Lizzie Alfaro NP [address] [place] [address] Left arm weakness (Primary Dx) Social History [...] Description 12/26/2024 10:30 AM EST Medication Management [facility] MEDICINE [address] [place] [address] Katlyn Rodriguez, PharmD 230 [place] [address] 01/28/2025 11:00 AM EST Office Visit [address] [address] Name, [place] [address] 02/04/2025 11:30 AM EST Clinical Support [address] [address] Opal Steiner, MARINA Scheduled Referrals Name Type [...] as of this encounter Care Teams Chief Nurse Executive Relationship Specialty Start Date End Date Name, MD Kiel [address] [place] [address] PCP - General Family Medicine 07/15/15 Puia, Katlyn, PharmD [address] [place] [address] Pharmacist Internal Medicine 10/08/22 Nehal Ann, MARINA [address] [place] [address] Registered Nurse Family Medicine 08/20/24 10/29/24 Ania Spencer 08/20/24 11/26/24 Opal Leyva Registered Nurse 10/29/24 11/26/24 Marta Ovalle Green Building Materials DesignerVice President Medical Affairs 05/25/23 documented as of this encounter
--- OUTSIDE RECORDS SUMMARY | 2024-12-13 15:25 | XMS_ITS | Encounter Summary ---
Author Organization [employer] Address [address] [place] [address] 7t [place] [address] Care Team Providers Care Assembly Leader Name Role Phone Name, Kiel BAILEY Primary Care Provider [phone] Katlyn Rodriguez PharmD Unavailable [phone] Nehal Ann RN Unavailable Unavailable Ania Spencer Unavailable Opal Leyva Unavailable [phone] Reason for Referral * Consultation (Routine) - Closed Specialty Diagnoses / Procedures Referred By Carroll hoover Referred To Contact Occupational Therapy Diagnoses Weakness of both lower extremities Hemiparesis of left dominant side as late effect of cerebral infarction (CMS/HCC) (HCC) Lizzie Alfaro NP 230 [place] [address] Phone: tel: fax: [facility] Physical Therapy [address] [place] [address] Phone: tel: fax: Referral ID Status Reason Start Date Expiration Date V isits Requested Visits Authorized [id number] Closed Specialty Services Required 09/06/2024 09/06/2025 20 20 * Consultation (Routine) - Closed Specialty Diagnoses / Procedures Referred By Carroll hoover Referred To Contact Physical Therapy Diagnoses Weakness of both lower extremities Lizzie Alfaro NP [address] [place] [address] Phone: tel: fax: [facility] Physical Therapy [address] [place] [address] Phone: tel: fax: Referral ID Status Reason Start Date Expiration Date V isits Requested Visits Authorized [id number] Closed Specialty Services Required 09/06/2024 09/06/2025 20 20 Encounter Details Date Type Department Care Team (Late st Contact Info) Description 09/06/2024 Orders Only [facility] MEDICINE 230 [place] [address] Lizzie Alfaro NP 230 [place], [place] [phone] Weakness of both lower extremities (Primary Dx); [...] Description 12/26/2024 10:30 AM EST Medication Management [address] [address] Puia, Katlyn, PharmD [address] [place] [address] 01/28/2025 11:00 AM EST Office Visit [address] [address] Name, MD Kiel [address] [place] [address] 02/04/2025 11:30 AM EST Clinical Support [address] [address] Opal Steiner, RN Scheduled Referrals Name Type [...] 7.5( 5 11:12 AM EDT) No Katlyn Rodriguez, PharmD Record your blood sugar as directed Result Component No Katlyn Rodriguez, PharmD documented as of this encounter Visit Diagnoses Diagnosis Weakness of both lower extremities- Primary Hemiparesis of left dominant side as late effect of cerebral infarction (CMS/HCC) (HCC) documented in this encounter Additional Health Concerns Assessment Noted Time PHQ-9 Depression Total Score: 7 09/05/19 11:46 AM EDT documented as of this encounter Care Teams Assembly Leader Relationship Specialty Start Date End Date Name, MD Kiel 230 [place] [address] PCP - General Family Medicine 07/15/15 Katlyn Rodriguez, PharmD [address] [place] [address] Pharmacist Internal Medicine 10/08/22 Nehal Ann, MARINA [address] [place] [address] Registered Nurse Family Medicine 08/20/24 10/29/24 Ania Spencer 08/20/24 11/26/24 Opal Leyva Registered Nurse 10/29/24 11/26/24 Marta Ovalle Warehouse HandlerStemming Machine Operator 05/25/23 documented as of this encounter
--- OUTSIDE RECORDS SUMMARY | 2024-12-13 15:25 | XMS_ITS | Encounter Summary ---
Author Organization [facility] Address [address] [facility] [address] [place] [address] Phone Care Team Providers Care Field Account Manager Name Role Phone Unavailable Primary Care Provider Unavailabl e Encounter Details Date Type Department Care Team (Late st Contact Info) Description 01/04/2020 Procedure Pass [facility] [address] [place], [place] [phone] Social History Tobacco Use Types Packs/Day Years [...] is not the complete legal health record.[facility]
--- OUTSIDE RECORDS SUMMARY | 2024-12-13 15:25 | XMS_ITS | Encounter Summary ---
Author Organization [employer] Address [address] [facility] 7t [place] [address] Care Team Providers Care Cap Maker Name Role Phone Name, Kiel BAILEY Primary Care Provider [phone] Katlyn Rodriguez PharmD Unavailable [phone] Ania Spencer Unavailable Opal Lyeva Unavailable [phone] Encounter Details Date Type Department Care Team (Late st Contact Info) Description 11/08/2024 Results Follow-Up [facility] 230 [place] [address] Lorenzo Chavez MD 230 [place] [address] XR Hand 3+ Views Left Social History [...] Description 12/26/2024 10:30 AM EST Medication Management [address] [address] Katlyn Rodriguez PharmD [address] [place] [address] 01/28/2025 11:00 AM EST Office Visit [address] [address] Name, MD Kiel [address] [place] [address] 02/04/2025 11:30 AM EST Clinical Support [address] [address] Opal Steiner RN documented as of this [...] documented as of this encounter Care Teams Cap Maker Relationship Specialty Start Date End Date Name, MD Kiel 230 [place] [address] PCP - General Family Medicine 07/15/15 Katlyn Rodriguez, PharmD 230 [place] [address] Pharmacist Internal Medicine 10/08/22 Ania Spencer 08/20/24 11/26/24 Opal Leyva Registered Nurse 10/29/24 11/26/24 Marta Ovalle Geotechnical EngineerInvestor Relations Coordinator 05/25/23 documented as of this encounter
--- OUTSIDE RECORDS SUMMARY | 2024-12-13 15:25 | XMS_ITS | Encounter Summary ---
Author Organization [employer] Address [address] [facility] 7t [place] [address] Care Team Providers Care Piping Designer Name Role Phone Name, Kiel BAILEY Primary Care Provider [phone] Katlyn Rodriguez PharmD Unavailable [phone] Nehal Ann RN Unavailable Unavailable Ania Spencer Unavailable Opal Leyva Unavailable [phone] Reason for Visit * Reason Onset Date Comments Durable Medical Equipment 12/06/2022 Encounter Details Date Type Department Care Team (Late st Contact Info) Description 12/06/2022 Telephone [facility] MEDICINE 230 [place], [place] [phone] Name, MD Kiel [address] [place] [address] Durable Medical Equipment Social History Tobacco Use [...] to message above. Please contact pt at [phone] (Eritrean) * Telephone Encounter - Jean-Paul Finch - 12/06/2022 3:29 PM EDT Tc from pt requesting status on some bed absorbant pads to not stain bed. Please contact pt at [phone] Eritrean Speaker documented in this encounter Plan of Treatment Upcoming Encounters Date Type Department Care Team (Late st Contact Info) Description 12/26/2024 10:30 AM EST Medication Management [facility] MEDICINE 230 [place], [place] [phone] Katlyn Rodriguez, PharmD 230 [place] [address] 01/28/2025 11:00 AM EST Office Visit [address] [phone] Kiel Shaffer MD [address] [place] [address] 02/04/2025 11:30 AM EST Clinical Support [address] [phone] Opal Steiner RN documented as of this [...] documented as of this encounter Care Teams Piping Designer Relationship Specialty Start Date End Date Kiel Shaffer MD [address] [place] [address] PCP - General Family Medicine 07/15/15 Puia, Katlyn, PharmD [address] [place] [address] Pharmacist Internal Medicine 10/08/22 Nehal Ann, MARINA [address] [place] [address] Registered Nurse Family Medicine 08/20/24 10/29/24 Ania Spencer 08/20/24 11/26/24 Opal Leyva Registered Nurse 10/29/24 11/26/24 Marta Ovalle Associate Professor Of Criminal JusticeCommunity Nurse 05/25/23 documented as of this encounter
== END 2024-12-13 14:26 | disposition home or self-care (01) ==
PROVIDERS: Emergency Provider Emergency Medicine; PCP Internal Medicine Geriatric Medicine
DX: S80.01XA Contusion of right knee, initial encounter (principal); S40.012A Contusion of left shoulder, initial encounter; J44.9 Chronic obstructive pulmonary disease, unspecified; E11.9 Type 2 diabetes mellitus without complications; M54.50 Low back pain, unspecified; F17.210 Nicotine dependence, cigarettes, uncomplicated; W06.XXXA Fall from bed, initial encounter; Y93.9 Activity, unspecified; Y92.9 Unspecified place or not applicable; Y99.8 Other external cause status; Z99.81 Dependence on supplemental oxygen; Z79.899 Other long term (current) drug therapy; Z79.4 Long term (current) use of insulin
CPT/HCPCS: 72100; 73030; 73562; 99283

== ENCOUNTER → 2024-12-13 11:46 | Outpatient (BNV) | payer MEDICAID, SELFPAY | PROVIDERS: Emergency Provider Emergency Medicine; PCP Internal Medicine Geriatric Medicine; Visit Provider Radiology Diagnostic Radiology | DX: M51.369 Other intervertebral disc degeneration, lumbar region without mention of lumbar back pain or lower extremity pain (principal); M25.561 Pain in right knee; W06.XXXA Fall from bed, initial encounter; M25.512 Pain in left shoulder | CPT/HCPCS: 72100; 73030; 73562 ==

== ENCOUNTER 2024-12-25 17:01 | Emergency (ER) | payer MEDICAID, SELFPAY ==
--- OUTSIDE RECORDS SUMMARY | 2023-11-24 08:53 | XMS_ITS | Encounter Summary ---
Author Organization [facility] Address [address] [place] [phone] Care Team Providers Care Body Stylist Name Role Phone Name, Kiel BAILEY Primary Care Provider [phone] Encounter Details Date Type Department Care Team (Late st Contact Info) Description 11/24/2023 9:53 AM EDT Hospital Encounter TH HISTORIC ENCOUNTERS EASTERN CONVERSION ONLY Geoffrey-Art Vitale MD [address] [place] [phone] Social History Tobacco Use Types Packs/Day [...] 02/05/2024 6:47 AM Rosy New RN * [place] Suicide Severity Rating Scale (Screener/Recent Self-Report) Question [...] 2:17 PM Encounter Date: 11/24/2023 Status: Signed Skewer Up: Art Davis MD (Physician) CHIEF COMPLAINT: Chief Complaint Patient presents with ? Follow-up Diffuse large B-cell lymphoma Stage III Completed 6 cycles of R-CHOP in July 23, 2018 IDENTIFIER:Sarita Puga is a 58 y.o. female. HPI: The patient returns for follow up of Large B-cell lymphoma. Here with her daughter , who is telugu to bulgarian per diem interpreter Patient reports that she has been doing [...] accompanied by her daughter and girlfriend. As Telugu to Saudi Arabian per diem interpreter assisted with the discussion. She had a [...] AM EST Office Visit Orthopedic Surgery - [address] [phone] Wesley Garcia DPM [address] [place] [phone] documented as of this encounter Procedures Procedure [...] documented as of this encounter Care Teams Body Stylist Relationship Specialty Start Date End Date Name, MD Kiel 4 [place], [place] PCP - General Internal Medicine 08/28/15 documented as of this encounter
--- OUTSIDE RECORDS SUMMARY | 2023-11-24 09:30 | XMS_ITS | Encounter Summary ---
Author Organization [facility] Address [address] [place] [phone] Care Team Providers Care Soaker Soda Worker Name Role Phone Name, Kiel BAILEY Primary Care Provider [phone] Encounter Details Date Type Department Care Team (Late st Contact Info) Description 11/24/2023 10:30 AM EDT Hospital Encounter TH HISTORIC ENCOUNTERS EASTERN CONVERSION ONLY Geoffrey-Art Vitale MD [address] [place] [phone] Social History Tobacco Use Types Packs/Day [...] 02/05/2024 6:47 AM Rosy New RN * [place] Suicide Severity Rating Scale (Screener/Recent Self-Report) Question [...] AM EST Office Visit Orthopedic Surgery - [address] [phone] Wesley Garcia DPPhani [address] [place] [phone] documented as of this encounter Visit Diagnoses Not on filedocumented in this encounter Additional Health Concerns Infection Onset Date Last Indicated Resolved Time Respiratory Rule-Out 02/05/2024 02/05/2024 024 8:09 AM EST COVID-19 Rule-Out 02/05/2024 02/05/2024 02/05/2024 8:09 AM EST documented as of this encounter Care Teams Soaker Soda Worker Relationship Specialty Start Date End Date Name, MD Kiel 4 [place], [place] PCP - General Internal Medicine 08/28/15 documented as of this encounter
--- OUTSIDE RECORDS SUMMARY | 2024-12-24 10:40 | XMS_ITS | Encounter Summary ---
Author Organization [email or web address] Address [address] [place] [address] [address] [place] [address] Care Team Providers Care Wheelchair Van Driver Name Role Phone Name, Kiel BAILEY Primary Care Provider [phone] Katlyn Rodriguez PharmD Unavailable [phone] Ania Spencer Unavailable Reason for Referral * Consultation (Routine) - Closed Specialty Diagnoses / Procedures Referred By Carroll t Referred To Contact Orthopaedic Surgery Diagnoses Acute pain of left shoulder Injury of left shoulder, subsequent encounter Victorino Graves MD [address], [place] Phone: tel: fax: [facility] [address] [place] [address] Phone: tel: Referral ID Status Reason Start Date Expiration Date V isits Requested Visits Authorized [id number] Closed Specialty Services Required 12/24/2024 12/24/2025 6 6 * Consultation (Routine) - Closed Specialty Diagnoses / Procedures Referred By Contremy t Referred To Contact Physical Therapy Diagnoses Acute pain of left shoulder Injury of left shoulder, subsequent encounter Left-sided weakness Victorino Graves MD [address] [place] [address] Phone: tel: fax: [facility] [address] [place] [address] Phone: tel: fax: Referral ID Status Reason Start Date Expiration Date V isits Requested Visits Authorized [id number] Closed Specialty Services Required 12/24/2024 12/24/2025 20 20 * Consultation (Routine) - Closed Specialty Diagnoses / Procedures Referred By Carroll hoover Referred To Contact Occupational Therapy Diagnoses Left-sided weakness Victorino Graves MD [address] [place] [address] Phone: tel: fax: [facility] [address] [place] [address] Phone: tel: fax: Referral ID Status Reason Start Date Expiration Date V isits Requested Visits Authorized [id number] Closed Specialty Services Required 12/24/2024 12/24/2025 20 20 Reason for Visit * Reason Comments Arm Pain Leg Pain Encounter Details Date Type Department Care Team (Late st Contact Info) Description 12/24/2024 10:40 AM EST Office Visit [facility] [address] [place] [id number] Victorino Graves MD [address] [place] [address] Acute pain of left shoulder (Primary Dx); Injury of left shoulder, subsequent encounter; Left-sided weakness Social History Tobacco Use Types Packs/Day Years [...] Sign Reading Time Taken Comments Blood Pressure 136/87 12/24/2024 11:09 AM EST Pulse 80 12/24/2024 11:09 AM EST Temperature 36.6 C (97.9 F) 12/24/2024 11:09 AM EST Respiratory Rate 19 12/24/2024 11:09 AM EST Oxygen Saturation 100% 12/24/2024 11:09 AM EST Inhaled Oxygen Concentration - - Weight - - Height - - Body Mass Index - - documented in this encounter Progress Notes * Victorino Graves MD - 12/24/2024 10:40 AM EST Subjective Patient ID: Sarita Puga is a 59 y.o. female. 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 Right knee x-rays reading: IMPRESSION: No fracture or dislocation. Satisfactory appearance of right knee replacement. X-rays of the lumbar spine and left shoulder were read as no acute findings. Tried ibuprofen, gabapentin, lidocaine patches with mild pain relief. Takes oxycodone 10 mg tid for chronic pain. Daughter was requesting new referrals for occupational and physical therapy for left upper and lower extremity weakness, numbness, and discomfort since her CVA. Lives with 23 yo grandson. Not employed. Smokes 1/2 PPD. Taking Chantix. Patient Active Problem List Diagnosis Date Noted Acute bilateral low back pain without sciatica 11/01/2024 Acute pain of left shoulder 11/01/2024 Bilateral hand pain 11/01/2024 Hemiparesis affecting left side as late effect of cerebrovascular accident ([facility] 11/01/2024 Nondisplaced fracture of right radial styloid process, initial encounter for closed fracture 10/09/2024 Non-recurrent acute suppurative otitis media of left ear without spontaneous rupture of tympanic membrane 09/03/2024 Long-term current use of opiate analgesic 08/20/2024 Other chest pain 08/17/2024 Hemiparesis of left dominant side ([facility] 08/11/2024 Cerebrovascular accident (CVA) ([facility]) 08/11/2024 History of stroke 07/30/2024 Cerebellar mass 06/28/2024 Chronic, continuous use of opioids 11/29/2023 Chronic pain syndrome 05/03/2023 Health care maintenance 04/06/2023 Urinary incontinence in female 04/06/2023 Type 2 diabetes mellitus with other specified complication ([facility]) 04/06/2023 Chronic obstructive pulmonary disease, unspecified ([facility]) 03/24/2023 Carpal tunnel syndrome 01/29/2022 S/P TKR (total knee replacement), right 11/03/2021 Tubular adenoma 05/12/2021 Gait instability 02/05/2019 Memory deficit 02/05/2019 On home oxygen therapy 02/05/2019 Chronic intractable headache 02/05/2019 Anxiety 05/05/2018 B-cell lymphoma ([facility]) 04/17/2018 Hemorrhoids 08/02/2017 Migraine 05/30/2017 Osteoarthritis of knee 10/20/2016 Essential hypertension 08/05/2015 H/O: hysterectomy 08/05/2015 Knee pain 08/05/2015 Lipoma of abdominal wall 11/02/2011 Obstructive sleep apnea syndrome 01/19/2011 Cocaine abuse, episodic use ([facility]) 06/17/2010 Depression 06/05/2009 Hypertriglyceridemia 06/05/2009 Severe obesity ([facility]) 06/05/2009 Tobacco use disorder 06/05/2009 The following portions of the chart were reviewed this encounter and updated as appropriate: Tobacco Allergies Meds Problems Med Hx Surg Hx Fam Hx Review of Systems Constitutional: Negative for fever. Respiratory: Negative for shortness of breath. Cardiovascular: Negative for chest pain. Gastrointestinal: Negative for abdominal pain. Musculoskeletal: Positive for arthralgias. Skin: Negative for rash. Neurological: Positive for weakness and numbness. Negative for headaches. Objective Physical Exam Constitutional: Appearance: Normal appearance. HENT: Right Ear: Tympanic membrane, ear canal and external ear normal. Left Ear: Tympanic membrane, ear canal and external ear normal. Nose: Nose normal. Mouth/Throat: Mouth: Mucous membranes are moist. Pharynx: Oropharynx is clear. Eyes: Conjunctiva/sclera: Conjunctivae normal. Pupils: Pupils are equal, round, and reactive to light. Cardiovascular: Rate and Rhythm: Normal rate and regular rhythm. Pulses: Radial pulses are 2+ on the left side. Heart sounds: No murmur heard. Pulmonary: Effort: Pulmonary effort is normal. Breath sounds: Normal breath sounds. Musculoskeletal: General: Normal range of motion. Cervical back: No tenderness. Comments: Limited passive range of motion due to pain. Skin: Findings: No rash. Neurological: Mental Status: She is alert. Motor: Weakness present. Gait: Gait is intact. Comments: Left upper and lower extremity weakness that patient states has been present since CVA. Psychiatric: Mood and Affect: Mood normal. Behavior: Behavior normal. Tenderness over the left shoulder with Procedures Assessment/Plan Diagnoses and all orders for this visit: Acute pain of left shoulder Refilled acetaminophen. I placed the patient in a left arm sling to use as needed. Referred back to occupational and physical therapy, and referred to orthopedic surgery Injury of left shoulder, subsequent encounter As above Left-sided weakness Referred back to occupational therapy. Other orders - acetaminophen (Tylenol 8 Hour) 650 MG ER tablet; Take 1 tablet (650 mg) by mouth every 8 (eight) hours if needed for moderate pain or headaches. Do not crush, chew, or split. documented in this encounter Plan of Treatment Upcoming Encounters Date Type Department Care Team (Late st Contact Info) Description 01/09/2025 9:00 AM EST Medication Management [address] [id number] Puia, Katlyn, PharmD [address] [place] [id number] 01/10/2025 11:30 AM EST Office Visit [address] [address] Name, MD Kiel [address] [place] [id number] 02/04/2025 11:30 AM EST Clinical Support [address] [phone] Opal Steiner RN Scheduled Referrals Name Type Priority Associated Diagnoses Order Schedule Referral to Occupational Therapy Outpatient Referral Routine Left-sided weakness Expected: 12/24/2024 (Approximate), Expires: 12/24/2025 Referral to Physical Therapy Outpatient Referral Routine Acute pain of left shoulder Injury of left shoulder, subsequent encounter Left-sided weakness Expected: 12/24/2024 (Approximate), Expires: 12/24/2025 Referral to Orthopaedic Surgery Outpatient Referral Routine Acute pain of left shoulder Injury of left shoulder, subsequent encounter Expected: 12/24/2024 (Approximate), Expires: 12/24/2025 documented as of this encounter Goals Goal Patient Goal Type Associated Problems Recent Progress Patient-Stated? Author Record your blood pressure once per day Blood Pressure No Puia, Katlyn, PharmD Blood Pressure < 140/90 Blood Pressure 136/87(2024 11:09 AM EST) No Puia, Katlyn, PharmD Hemoglobin A1c < 7 Result Component 7.5( 11:12 AM EDT) No Puia, Katlyn, PharmD Record your blood sugar as directed Result Component No Puia, Katlyn, PharmD documented as of this encounter Visit Diagnoses Diagnosis Acute pain of left shoulder- Primary Injury of left shoulder, subsequent encounter Left-sided weakness documented in this encounter Additional Health Concerns Assessment Noted Time PHQ-9 Depression Total Score: 7 09/05/19 25 11:46 AM EDT documented as of this encounter Care Teams Wheelchair Van Driver Relationship Specialty Start Date End Date Name, MD Kiel [address] [place] [address] PCP - General Family Medicine 07/15/15 Katlyn Rodriguez PharmD [address] [place] [address] Pharmacist Internal Medicine 10/08/22 Ania Spencer 12/14/24 Marta Ovalle [employer] 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
--- NOTE | ~2024-12-25 | XR_ITS ---
CLINICAL HISTORY: pain, trauma? 3 view left shoulder Comparison: CR/AR/SR - XR SHOULDER 2 OR MORE VIEWS LEFT - 12/13/24 12:34 EDT Findings: This examination is mildly limited by suboptimal patient positioning and artifact related to structures overlying the patient. No acute fracture or dislocation injury identified. There appears to be widening of the left glenohumeral joint space. No radiopaque foreign body. IMPRESSION: 1. Mildly limited examination as described above. There appears to be widening of the left glenohumeral joint space which is of uncertain etiology, possibly related to distention of the joint by an effusion, bony subluxation in this region, or possibly a projectional finding. No acute fracture or dislocation injury identified. This document has been electronically signed by: Merrill Iyer MD on 12/25/2024 21:51:30
--- NOTE | 2024-12-25 17:11 | ED.GENADULT ---
HPI - General Adult General Chief complaint: General Medical Stated complaint: left side arm pain/left hand swollen Time Seen by Provider: 12/25/24 21:01 Source: patient and family Limitations: language barrier History of Present Illness ED Provider: Ignacia Lorenzo PA-C HPI narrative: 59-year-old female who is morbidly obese with a history of hyperlipidemia, diabetes, hypertension, recent CVA March of 2024 with left-sided residual deficits, chronic left upper extremity pain that has increased in severity since the stroke, known carpal tunnel of the left wrist, who presents with left shoulder pain. Patient here for ongoing chronic pain. No new injury, no trauma, no new activity. Patient states she has also had intermittent swelling of the left upper extremity since her stroke. She is not able to range the arm secondary to her residual weakness from the stroke. The arm often hangs at her side.Per the patient's daughter, the patient has pending physical therapy for her ongoing left-sided pain and weakness. Related Data Home Medications ?Medication ?Instructions ?Recorded ?Confirmed montelukast 10 mg tablet 10 mg PO BEDTIME 02/13/20 10/03/24 (Singulair) paroxetine HCl 40 mg tablet 40 mg PO BEDTIME 12/05/20 10/03/24 pen needle, diabetic 32 gauge x #50 ea 12/05/20 10/03/24 (Pentips Pen Needle) insulin glargine 100 unit/mL (3 36 unit subcut DAILY 05/26/21 10/03/24 mL) subcutaneous pen (Lantus Solostar U-100 Insulin) gabapentin 600 mg tablet 600 mg PO TID PRN Pain 04/21/22 10/03/24 lidocaine 5 % topical patch 1 patch topical DAILY PRN Pain 04/21/22 10/03/24 metoprolol succinate 25 mg 25 mg PO BEDTIME 04/21/22 10/03/24 tablet,extended release 24 hr oxcarbazepine 300 mg tablet 450 mg PO BEDTIME 04/21/22 10/03/24 clonidine HCl 0.1 mg tablet 0.1 mg PO BEDTIME 07/08/22 10/03/24 atorvastatin 80 mg tablet 80 mg PO BEDTIME 01/05/23 10/03/24 metformin 500 mg tablet,extended 500 mg PO BEDTIME 01/05/23 10/03/24 release 24 hr acetaminophen 650 mg 650 mg PO Q8H PRN Mild Pain (Scale 06/18/24 10/03/24 tablet,extended release Score 1-4) albuterol sulfate 2.5 mg/3 mL 2.5 mg inhalation Q4H PRN 06/18/24 10/03/24 (0.083 %) solution for nebulization shortness of breath or wheezing albuterol sulfate 90 mcg/actuation 2 puff inhalation Q4H PRN wheezing 06/18/24 10/03/24 aerosol inhaler (Ventolin HFA) baclofen 10 mg tablet 10 mg PO TID PRN muscle spasm 06/18/24 10/03/24 calcium 600 mg (as 1 tab PO BID 06/18/24 10/03/24 carbonate)-vitamin D3 5 mcg (200 unit) tablet cetirizine 10 mg tablet (Zyrtec) 10 mg PO DAILY 06/18/24 10/03/24 ezetimibe 10 mg tablet 10 mg PO DAILY 06/18/24 10/03/24 famotidine 20 mg tablet 20 mg PO BID 06/18/24 10/03/24 furosemide 20 mg tablet 20 mg PO DAILY 06/18/24 10/03/24 icosapent ethyl 1 gram capsule 2 g PO BID 06/18/24 10/03/24 losartan 50 mg tablet 50 mg PO DAILY 06/18/24 10/03/24 meloxicam 7.5 mg tablet 7.5 mg PO DAILY 06/18/24 10/03/24 oxcarbazepine 150 mg tablet 150 mg PO DAILY 06/18/24 10/03/24 tirzepatide 15 mg/0.5 mL 15 mg subcut FR 06/18/24 10/03/24 subcutaneous pen injector (Lurdes) trazodone 100 mg tablet 100 mg PO BEDTIME PRN insomnia 06/18/24 10/03/24 Previous Rx's ?Medication ?Instructions ?Recorded oxycodone 10 mg tablet 10 mg PO DAILY PRN headache #30 06/20/24 tabs fluticasone propionate 115 2 puff inhalation Q12H ASTHMA/COPD 09/12/24 mcg-salmeterol 21 mcg/actuation 30 days #12 grams HFA inhaler (Advair HFA) ibuprofen 600 mg tablet 600 mg PO Q6H PRN pain #12 tabs 10/06/24 pyridoxine (vitamin B6) 100 mg 100 mg PO DAILY 90 days #90 tabs 11/12/24 tablet ipratropium 20 mcg-albuterol 100 1 puff PO Q6H #4 grams 11/21/24 mcg/actuation mist for inhalation (Combivent Respimat) methocarbamol 750 mg tablet 750 mg PO BEDTIME #7 tabs 12/25/24 Allergies Allergy/AdvReac Type Severity Reaction Status Date / Time penicillin G (Penicillin G) Allergy Mild SWELLING Verified 12/25/24 17:29 barium sulfate (ORAL Allergy Unknown HIVES Verified 12/25/24 17:29 CONTRAST) cephalexin Allergy Unknown Unknown Verified 12/25/24 17:29 Review of Systems Review of Systems: Yes all other systems are reviewed and are negative Constitutional: Constitutional: Denies fatigue and Denies fever(s) Musculoskeletal: Musculoskeletal: Reports arthralgias and Reports joint swelling Endocrine: Endocrine: Denies fatigue PMFSH Past Medical History Attestation statement: The following information was validated with the patient. Medical History COPD (chronic obstructive pulmonary disease) Diabetes mellitus Brain lesion Reactive airway disease Coronary artery disease Insulin dependent type 2 diabetes mellitus Exposure to rabies Lymphoma Restrictive lung disease secondary to obesity Nocturnal hypoxemia DRE (obstructive sleep apnea) Cough Nicotine dependence, cigarettes, uncomplicated Allergic rhinitis Morbid obesity Hyperlipidemia GERD (gastroesophageal reflux disease) Tubular adenoma Chronic idiopathic constipation IBS (irritable bowel syndrome) Back pain Depression Surgical History History of total right knee replacement (TKR) History of appendectomy (~1978) History of (~1986) History of hysterectomy (~1995) History of lithotripsy (~2018) History of carpal tunnel surgery of right wrist (~2020) History of colonoscopy History of esophagogastroduodenoscopy (EGD) Family History Family History Mother Diabetes Heart muscle disorder caused by another medical condition Father Diabetes Epilepsy Sister No problems noted. Sister No problems noted. Sister No problems noted. Sister No problems noted. Sister No problems noted. Brother No problems noted. Brother No problems noted. Brother No problems noted. Brother No problems noted. Brother No problems noted. Brother No problems noted. Daughter No problems noted. Daughter No problems noted. Son No problems noted. Son No problems noted. Son No problems noted. Social History Social History Household Members: Other Household Members Other:: grandson Housing: Apartment Are you a primary health and social care teacher to a significant other at home: No Do you presently have visiting nurse or other home services: No Alcohol intake: current Alcohol intake frequency: does not drink Patient Tobacco Use Status: Current everyday Tobacco user Tobacco use type: Cigarette Cigarette Packs Per Day: 2 Cigarettes Per Day: 40.0 Years Smoked: (onset 13yo, x 42yrs, max 2ppd, now 1/2ppd - 30PYH) e-Cigarette/Vaping Use: Never Used Second Hand Smoke Exposure: No Substance Use Type: Marijuana service: No Current occupational status: disabled Current occupation: rt handed Physical Exam ED Vital Signs: Vital Signs - 24 hr 12/25/24 17:24 12/25/24 21:31 12/25/24 22:15 Temperature 96.6 F L 97.8 F Pulse Rate 73 88 88 Respiratory Rate 20 16 16 Blood Pressure 154/77 H 124/70 124/70 Pulse Oximetry 98 98 98 Oxygen Delivery Method Room Air Room Air Room Air BMI result Body Mass Index 40.7 Const Other: Alert, appears older than stated age Orientation/consciousness: patient oriented x3 Resp Effort & Inspection: normal respiratory effort Cardio Other: Normal peripheral perfusion Skin Other: Warm dry no rash Neuro Other: Weakness on the left side is chronic since the stroke General: patient oriented x3 and CN's II-XI intact bilaterally Extrem Other: No warmth or erythema no swelling noted of the left shoulder, the patient can range the left upper extremity with the assistance Psych Other: Cooperative Course Course Course Narrative: This is a rapid medical exam performed by Janell Murphy NP: Additional HPI, ROS, PE not included below will be deferred to primary provider. Patient is a 59y/o Singaporean speaking F with history of CVA last March presenting to the ED with complaint of left sided pain since her stroke. Pain to left arm and left leg. Difficulty with ambulation, has wheelchair and walker. Plan: labs Medications Administered Discontinued Medications Generic Name Dose Route Start Last Admin Trade Name Freq PRN Reason Stop Dose Admin Methocarbamol 750 mg 12/25/24 21:06 12/25/24 21:31 Methocarbamol 750 Mg Tablet PO 12/25/24 21:07 750 mg ONCE ONE Administration Medical Decision Making Medical Decision Making [facility] Narrative: 59-year-old female who is morbidly obese with a history of hyperlipidemia, diabetes, hypertension, recent CVA March of 2024 with left-sided residual deficits, chronic left upper extremity pain that has increased in severity since the stroke, known carpal tunnel of the left wrist, who presents with left shoulder pain. Patient here for ongoing chronic pain. No new injury, no trauma, no new activity. Patient states she has also had intermittent swelling of the left upper extremity since her stroke. She is not able to range the arm secondary to her residual weakness from the stroke. The arm often hangs at her side. Per the patient's daughter, the patient has pending physical therapy for her ongoing left-sided pain and weakness. Problem: Prior stroke, diabetes, chronic pain History: Per patient and the daughter primarily I have considered the following differential diagnoses: Arthritis, fracture, dislocation, septic joint, chronic pain Plan: The patient is insistent on an x-ray, I explained that given there was no overuse injury, no trauma, that there were not be an acute finding. I will do so, the patient takes Tylenol for her pain, she is under dosing herself, I will send them with the appropriate dose. Also adding a muscle relaxant for her to use at nighttime. It is ideal that the patient we will be starting physical therapy. This is not a septic joint, based on my exam. I have independently reviewed the following tests: Labs: No leukocytosis, not anemic, no electrolyte abnormality noted Left shoulder x-ray: IMPRESSION: 1. Mildly limited examination as described above. There appears to be widening of the left glenohumeral joint space which is of uncertain etiology, possibly related to distention of the joint by an effusion, bony subluxation in this region, or possibly a projectional finding. No acute fracture or dislocation injury identified. No change from prior study when I physically compared the images Differential Diagnosis Differential Diagnoses: The differential diagnosis associated with the presentation includes See medical decision-making Admission/Observation Consideration of admission/observation: Escalation of care including admission/observation considered Not applicable Lab Data [facility] Lab Attestation statement: I reviewed the patient's lab results. 12/25/24 17:51 12/25/24 17:51 Labs: Lab Results 12/25/24 Range/Units 17:51 WBC 6.7 (4.8-10.8) X10*3/uL RBC 4.86 (4.20-5.50) X10*6/uL Hgb 13.3 (12.0-16.0) g/dl Hct 40.7 (37.0-47.0) % MCV 83.7 (80.0-98.0) fL MCH 27.4 (27.0-33.0) pg MCHC 32.7 (31.0-35.0) g/dl RDW 12.9 (11.0-16.0) % Plt Count 170 D (160-400) X10*3/uL MPV 12.3 (9.4-12.3) fL Immature Gran % (Auto) 0.3 (0.0-0.4) % Neut % (Auto) 56.0 (45-73) % Lymph % (Auto) 34.1 (20-40) % Rock % (Auto) 7.1 (2-11) % Eos % (Auto) 1.6 (0-4) % Baso % (Auto) 0.9 (0-2) % Lymph # (Auto) 2.3 (1.2-4.9) X10*3/uL Rock # (Auto) 0.5 (0.1-1.2) X10*3/uL Eos # (Auto) 0.1 (0.0-0.4) X10*3/uL Baso # (Auto) 0.1 (0.0-0.2) X10*3/uL Abs Immat Gran (auto) 0.02 (0.00-0.03) X10*3/uL Absolute Neuts (auto) 3.8 (2.0-8.3) x10*3/uL Absolute Nucleated RBC 0.000 (0.0-0.012) X10*3/uL Nucleated RBC % (auto) 0.0 (0.0-0.2) /100WBC Sodium 138 (135-145) mmol/L Potassium 4.0 (3.3-5.1) mmol/L Chloride 104 (96-108) mmol/L Carbon Dioxide 27 (22-29) mmol/L Anion Gap 11 L (12-20) BUN 15 (9-16) mg/dL Creatinine 0.49 L (0.5-1.4) mg/dL Estim Creat Clear Calc 142.7 Estimated GFR > 60 Random Glucose 138 H (60-115) mg/dL Calcium 9.3 D (8.4-10.2) mg/dL Total Bilirubin 0.3 (0.0-1.0) mg/dL AST 12 (5-31) U/L ALT 22 (0-31) U/L Alkaline Phosphatase 77 (39-117) U/L Total Protein 6.8 (6.5-8.0) g/dL Albumin 4.3 (3.5-5.0) g/dL Radiology Impression Discussion of test interpretation with radiology: I have reviewed the radiologist's reading. Discharge Plan Discharge Clinical Impression: Left shoulder pain Patient Disposition: Home, Self-Care Instructions: Shoulder Pain (ED) Additional Instructions: The x-ray was normal of the shoulder, there are no changes since her last x-ray of the shoulder from October of this year. See home care instructions. It is a great thing that she will be starting physical therapy soon, physical therapy helps to strengthen and an increased mobility. At nighttime, she can use the muscle relaxant, the methocarbamol, for further pain. This medication will cause drowsiness, do not drive or operate machinery while taking the medication. During the day she can continue to use the Tylenol, 1000 mg taken every 6 hours. Continue to follow up with primary care as needed. Prescriptions: New methocarbamol 750 mg tablet 750 mg PO BEDTIME Qty: 7 0RF No Action Advair HFA 115-21 mcg/actuation HFA aerosol inhaler 2 puff inhalation Q12H 30 Days Qty: 12 5RF Rx Instructions: administer with spacer pyridoxine (vitamin B6) 100 mg tablet 100 mg PO DAILY 90 Days Qty: 90 3RF Combivent Respimat 20-100 mcg/actuation mist 1 puff PO Q6H Qty: 4 3RF losartan 50 mg tablet 50 mg PO DAILY oxcarbazepine 150 mg tablet 150 mg PO DAILY calcium carbonate-vitamin D3 600 mg-5 mcg (200 unit) tablet 1 tab PO BID meloxicam 7.5 mg tablet 7.5 mg PO DAILY famotidine 20 mg tablet 20 mg PO BID trazodone 100 mg tablet 100 mg PO BEDTIME PRN (Reason: insomnia) baclofen 10 mg tablet 10 mg PO TID PRN (Reason: muscle spasm) furosemide 20 mg tablet 20 mg PO DAILY albuterol sulfate [Ventolin HFA] 90 mcg/actuation HFA aerosol inhaler 2 puff INHALATION Q4H PRN (Reason: wheezing) ezetimibe 10 mg tablet 10 mg PO DAILY icosapent ethyl 1 gram capsule 2 g PO BID Mounjaro 15 mg/0.5 mL pen injector 15 mg subcut FR acetaminophen 650 mg tablet extended release 650 mg PO Q8H PRN (Reason: Mild Pain (Scale Score 1-4)) albuterol sulfate 2.5 mg /3 mL (0.083 %) solution for nebulization 2.5 mg inhalation Q4H PRN (Reason: shortness of breath or wheezing) cetirizine [Zyrtec] 10 mg tablet 10 mg PO DAILY oxycodone 10 mg tablet 10 mg PO DAILY PRN (Reason: headache) Qty: 30 0RF Rx Instructions: Partial Fill upon patient request. ibuprofen 600 mg tablet 600 mg PO Q6H PRN (Reason: pain) Qty: 12 0RF montelukast [Singulair] 10 mg tablet 10 mg PO BEDTIME gabapentin 600 mg tablet 600 mg PO TID PRN (Reason: Pain) metoprolol succinate 25 mg tablet extended release 24 hr 25 mg PO BEDTIME (DME) pen needle, diabetic [Pentips Pen Needle] 32 gauge x 5/32 needle See Rx Instructions .ROUTE DAILY Qty: 50 Rx Instructions: As directed paroxetine HCl 40 mg tablet 40 mg PO BEDTIME Lantus Solostar U-100 Insulin 100 unit/mL (3 mL) insulin pen 36 unit subcut DAILY lidocaine 5 % adhesive patch,medicated 1 patch topical DAILY PRN (Reason: Pain) Rx Instructions: leave on most painful area for up to 12 hrs oxcarbazepine 300 mg tablet 450 mg PO BEDTIME clonidine HCl 0.1 mg tablet 0.1 mg PO BEDTIME metformin 500 mg tablet extended release 24 hr 500 mg PO BEDTIME atorvastatin 80 mg tablet 80 mg PO BEDTIME Interventions: ED Discharge Assessment Last Done: 12/25/24 22:15 Discharge Date/Time: 12/25/24 22:17 Print Language: Singaporean
[2024-12-25 17:24] VITALS: BP 154/77; PULSE 73; RESP 20; TEMP 35.9; O2SAT 98; BMI 40.7
[2024-12-25 18:03] LABS: Hematocrit 40.7 % (37.0-47.0); Hemoglobin 13.3 g/dl (12.0-16.0); Imm Gran Abs Auto 0.02 X10*3/uL (0.00-0.03); Imm Gran Pct Auto 0.3 % (0.0-0.4); Lymphocytes Absolute Auto 2.3 X10*3/uL (1.2-4.9); MANUAL DIFF FLAG NO; Mean Corpuscular HGB Conc 32.7 g/dl (31.0-35.0); Mean Corpuscular Hemoglobin 27.4 pg (27.0-33.0); Mean Corpuscular Volume 83.7 fL (80.0-98.0); NRBC Abs Auto 0.000 X10*3/uL (0.0-0.012); NRBC Pct Auto 0.0 /100WBC (0.0-0.2); Platelet Count 170 X10*3/uL (160-400); Red Blood Count 4.86 X10*6/uL (4.20-5.50); White Blood Count 6.7 X10*3/uL (4.8-10.8)
[2024-12-25 18:17] LABS: Alanine Aminotransferase 22 U/L (0-31); Albumin Level 4.3 g/dL (3.5-5.0); Alkaline Phosphatase 77 U/L (39-117); Anion Gap 11 (12-20); Aspartate Amino Transferase 12 U/L (5-31); Blood Urea Nitrogen 15 mg/dL (9-16); Calcium 9.3 mg/dL (8.4-10.2); Carbon Dioxide 27 mmol/L (22-29); Chloride 104 mmol/L (96-108); Creatinine Clr Calc Pharmacy 142.7; Estimated Glomerular Filt Rate > 60; Potassium 4.0 mmol/L (3.3-5.1); Sodium 138 mmol/L (135-145); Total Protein 6.8 g/dL (6.5-8.0)
--- OUTSIDE RECORDS SUMMARY | 2024-12-25 20:56 | XMS_ITS | Encounter Summary ---
Author Organization [employer] Address [address] [place] [address] Care Team Providers Care Structures Assembler Name Role Phone Name, Kiel BAILEY Primary Care Provider [phone] Katlyn Rodriguez PharmD Unavailable [phone] Nehal Ann RN Unavailable Unavailable Ania [place] Unavailable Opal Carrasquillo Unavailable [phone] Ania [place] Unavailable Encounter Details Date Type Department Care Team (Late st Contact Info) Description 05/01/2024 Telephone [facility] [address] [place], [place] [phone] Name, MD Kiel [address] [place], [place] [phone] Social History Tobacco Use Types Packs/Day Years [...] Description 01/09/2025 9:00 AM EST Medication Management [facility] [address] [place] [phone] Katlyn Rodriguez, PharmD [address] [place] [address] 01/10/2025 11:30 AM EST Office Visit [facility] [address] [place] [phone] Name, MD Kiel [address] [place] [phone] 02/04/2025 11:30 AM EST Clinical Support [facility] [address] [place] [address] Opal Steiner, MARINA documented as of this [...] documented as of this encounter Care Teams Structures Assembler Relationship Specialty Start Date End Date Name, MD Kiel [address] [place] [phone] PCP - General Family Medicine 07/15/15 Puia, Katlyn, PharmD [address] [place] [phone] Pharmacist Internal Medicine 10/08/22 Nehal Ann RN [address] [place] [phone] Registered Nurse Family Medicine 08/20/24 10/29/24 Ania [place] 08/20/24 11/26/24 Opal Carrasquillo Registered Nurse 10/29/24 11/26/24 Ania [place] 12/14/24 Marta Ovalle Playground OfficialSenior Oracle Pl Sql Developer 05/25/23 documented as of this encounter
--- OUTSIDE RECORDS SUMMARY | 2024-12-25 20:56 | XMS_ITS | Encounter Summary ---
Author Organization [employer] Address [address] [place] [address] [address] [place] [address] Care Team Providers Care Hands Hanger Name Role Phone Name, Kiel BAILEY Primary Care Provider [phone] Katlyn Rodriguez PharmD Unavailable [phone] Nehal Ann RN Unavailable Unavailable Ania [place] Unavailable Opal Carrasquillo Unavailable Ania [place] Unavailable Reason for Visit * Reason Comments Med Refill Encounter Details Date Type Department Care Team (Late st Contact Info) Description 06/27/2023 Refill [facility] [address] [place], [place] [phone] Katlyn Rodriguez, PharmD [address] [place], [place] [phone] Tobacco use disorder Social History Tobacco Use [...] Description 01/09/2025 9:00 AM EST Medication Management [address] [address] Katlyn Rodriguez, PharmD [address] [place] [phone] 01/10/2025 11:30 AM EST Office Visit [address] [address] Name, MD Kiel [address] [place] [address] 02/04/2025 11:30 AM EST Clinical Support [address] [address] Opal Steiner RN documented as of this encounter Goals Goal Patient Goal Type Associated Problems Recent Progress Patient-Stated? Author Record your blood pressure once per day Blood Pressure No PuiaReidKatlyn, PharmD Blood Pressure < 140/90 Blood Pressure 136/87(2024 11:09 AM EST) No PuiaReidKatlyn, PharmD Hemoglobin A1c [...] documented as of this encounter Care Teams Hands Hanger Relationship Specialty Start Date End Date Name, MD Kiel [address] [place] [address] PCP - General Family Medicine 07/15/15 Puia, Katlyn, PharmD [address] [place] [address] Pharmacist Internal Medicine 10/08/22 Nehal Ann RN [address] [place] [address] Registered Nurse Family Medicine 08/20/24 10/29/24 Ania [place] 08/20/24 11/26/24 Opal Carrasquillo Registered Nurse 10/29/24 11/26/24 Ania [place] 12/14/24 Marta Ovalle Rail Car WelderMarine Fireman 05/25/23 documented as of this encounter
--- OUTSIDE RECORDS SUMMARY | 2024-12-25 20:56 | XMS_ITS | Encounter Summary ---
Author Organization [employer] Address [address] [place] [address] [address] [place] [address] Care Team Providers Care Landscaping Manager Name Role Phone Name, Kiel BAILEY Primary Care Provider [phone] Katlyn Rodriguez PharmD Unavailable [phone] Nehal Ann RN Unavailable Unavailable Ania [place] Unavailable Opal Carrasquillo Unavailable [phone] Ania [place] Unavailable Reason for Visit * Reason Comments Med Refill Encounter Details Date Type Department Care Team (Late st Contact Info) Description 02/10/2022 Refill [facility] [address] [place] [address] Name, MD Kiel [address] [place] [address] Chronic pain syndrome (Primary Dx) Social History [...] Description 01/09/2025 9:00 AM EST Medication Management [address] [phone] Katlyn Rodriguez PharmD [address] [place] [address] 01/10/2025 11:30 AM EST Office Visit [address] [phone] Name, MD Kiel [address] [place] [address] 02/04/2025 11:30 AM EST Clinical Support [address] [address] Opal Steiner, MARINA documented as of this encounter Visit Diagnoses Diagnosis Chronic pain syndrome- Primary documented in this encounter Care Teams Landscaping Manager Relationship Specialty Start Date End Date Name, MD Kiel [address] [place] [phone] PCP - General Family Medicine 07/15/15 Katlyn Rodriguez PharmD [address] [place] [phone] Pharmacist Internal Medicine 10/08/22 Nehal Ann, MARINA [address] [place] [phone] Registered Nurse Family Medicine 08/20/24 10/29/24 Ania [place] 08/20/24 11/26/24 Opal Carrasquillo Registered Nurse 10/29/24 11/26/24 Ania [place] 12/14/24 Marta Ovalle Collar PointerComposite Laminator 05/25/23 documented as of this encounter
--- OUTSIDE RECORDS SUMMARY | 2024-12-25 20:56 | XMS_ITS | Clinical Summary ---
Author Organization [facility] Address [address] [place] [address] Care Team Providers Care Monogram Maker Name Role Phone Name, Kiel BAILEY Primary Care Provider [phone] Allergies Active Allergy Reactions Criticality Noted Date [...] age to complete this topic Care Teams Monogram Maker Relationship Specialty Start Date End Date Name, MD Kiel [address] [facility] [address] [place] [address] PCP - General Internal Medicine 04/17/18
--- OUTSIDE RECORDS SUMMARY | 2024-12-25 20:56 | XMS_ITS | Encounter Summary ---
Author Organization [employer] Address [address] [place] [address] 7[address] [place] [address] Care Team Providers Care Section Leader Name Role Phone Name, Kiel BAILEY Primary Care Provider [phone] Katlyn Rodriguez PharmD Unavailable [phone] Nehal Ann RN Unavailable Unavailable Ania [place] Unavailable Opal Carrasquillo Unavailable [phone] Ania [place] Unavailable Encounter Details Date Type Department Care Team (Late st Contact Info) Description 07/01/2022 Abstract [facility] [address] [place], [place] [phone] Name, MD Kiel [address] [place], [place] [phone] Social History Tobacco Use Types Packs/Day Years [...] Description 01/09/2025 9:00 AM EST Medication Management [address] [phone] Katlyn Rodriguez PharmD [address] [place] [address] 01/10/2025 11:30 AM EST Office Visit [address] [phone] Name, MD Kiel [address] [place] [address] 02/04/2025 11:30 AM EST Clinical Support [address] [phone] Opal Steiner RN documented as of this encounter Procedures Procedure Name Priority Date/Time Associated Diagnosis Comments COLONOSCOPY Routine 07/01/2022 4:37 PM EDT documented in this encounter Results * Colonoscopy (07/01/2022 4:37 PM EDT) Colonoscopy Normal Normal Narrative Emely Devine - 07/01/2022 4:37 PM EDT Recommended 5 year follow up ([facility]) Historical Provider HEALTH MAINTENANCE Final Result documented in this encounter Visit Diagnoses Not on filedocumented in this encounter Care Teams Section Leader Relationship Specialty Start Date End Date Name, MD Kiel [address] [place] [address] PCP - General Family Medicine 07/15/15 Katlyn Rodriguez PharmD [address] [place] [address] Pharmacist Internal Medicine 10/08/22 Nehal Ann RN [address] [place] [address] Registered Nurse Family Medicine 08/20/24 10/29/24 Ania [place] 08/20/24 11/26/24 Opal Carrasquillo Registered Nurse 10/29/24 11/26/24 Ania [place] 12/14/24 Marta Ovalle Pattern Wheel MakerCase Folder 05/25/23 documented as of this encounter
--- OUTSIDE RECORDS SUMMARY | 2024-12-25 20:56 | XMS_ITS | Encounter Summary ---
Author Organization [employer] Address [address] [facility] 7t [place] [address] Care Team Providers Care Threading Machine Operator Name Role Phone Name, Kiel BAILEY Primary Care Provider [phone] Katlyn Rodriguez PharmD Unavailable [phone] Nehal Ann RN Unavailable Unavailable Ania Spencer Unavailable Opal Carrasquillo Unavailable [phone] Ania Spencer Unavailable Encounter Details Date Type Department Care Team (Late Contact Info) Description 03/12/2022 Orders Only [facility] & [facility]S [address] [place], [place] [phone] Millie Sawant LPN Social History Tobacco Use [...] Department Care Team ([facility] Contact Info) Description 01/09/2025 9:00 AM EST Medication Management [facility] [place] [address] Katlyn Rodriguez PharmD [place] [address] 01/10/2025 11:30 AM EST Office Visit [facility] [place] [address] Name, MD Kiel [facility] [place] [address] 02/04/2025 11:30 AM EST Clinical Support [address] [place] [address] Opal Steiner, MARINA documented as of this encounter Visit Diagnoses Not on filedocumented in this encounter Care Teams Threading Machine Operator Relationship Specialty Start Date End Date Name, MD Kiel [facility] [place] [address] PCP - General Family Medicine 07/15/15 Katlyn Rodriguez, AngieD [place] [address] Pharmacist Internal Medicine 10/08/22 Nehal Ann, MARINA [address] [place] [address] Registered Nurse Family Medicine 08/20/24 10/29/24 Ania Spencer 08/20/24 11/26/24 Opal Carrasquillo Registered Nurse 10/29/24 11/26/24 Ania Spencer 12/14/24 Marta Ovalle Senior C Web DeveloperPhotocomposition Keyboard Operator 05/25/23 documented as of this encounter
--- OUTSIDE RECORDS SUMMARY | 2024-12-25 20:56 | XMS_ITS | Encounter Summary ---
Author Organization [employer] Address [address] [facility] 7t [place] [address] Care Team Providers Care Project Management Manager Name Role Phone Name, Kiel BAILEY Primary Care Provider [phone] Katlyn Rodriguez PharmD Unavailable [phone] Ania Spencer Unavailable Encounter Details Date Type Department Care Team ([facility] st Contact Info) Description 12/25/2024 Orders Only GENERIC EXTERNAL DATA DEPARTMENT Provider, Generic External Data Social History Tobacco Use Types Packs/Day Years [...] Description 01/09/2025 9:00 AM EST Medication Management [address] [address] Puia, Katlyn, PharmD [address] [place] [address] 01/10/2025 11:30 AM EST Office Visit [address] [address] Name, MD Kiel [address] [place] [address] 02/04/2025 11:30 AM EST Clinical Support [address] [address] Opal Steiner RN documented as of this [...] Procedure Name Priority Date/Time Associated Diagnosis Comments CBC WITH AUTO DIFFERENTIAL Routine 12/25/2024 5:51 PM EST COMPREHENSIVE METABOLIC PANEL Routine 12/25/2024 5:51 PM EST documented in this encounter Results * (ABNORMAL) Comprehensive Metabolic Panel (12/25/2024 5:51 PM EST) Sodium 138 135 - 145 mmol/L [facility] Potassium 4.0 3.3 - 5.1 mmol/L [facility] Chloride 104 96 - 108 mmol/L [facility] Carbon Dioxide 27 22 - 29 mmol/L [facility] Anion Gap 11(L) 12 - 20 [facility] Urea Nitrogen (BUN) 15 9 - 16 mg/dL [facility] Creatinine, Serum 0.49(L) 0.5 - 1.4 mg/dL [facility] Creatinine Clr Calc Pharmacy 142.7 [facility] Comment:Provided height and weight: 160.02 cm,104.326 kg.eGFR (calculated from the MDRD study equation) and eCrCl(calculated from the Cockcroft-Gault equation) are based ondifferent parameters and may not yield comparable results.If eCrCl result is absurd, please check patient'sheight/weight. Estimated Glomerular Filt Rate >60 [facility] Comment:Chronic Kidney Disea se: Estimated GFR < 60 mL/min/[id number] Kidney Disease: Estimated GFR < 15 mL/min/1.73m2 Glucose 138(H) 60 - 115 mg/dL [facility] Calcium 9.3 8.4 - 10.2 mg/dL [facility] Bilirubin, Total 0.3 0.0 - 1.0 mg/dL [facility] Aspartate Amino Transferase 12 5 - 31 U/L [facility] Alanine Aminotransferase 22 0 - 31 U/L [facility] Total Protein 6.8 6.5 - 8.0 g/dL [facility] Albumin Level 4.3 3.5 - 5.0 g/dL [facility] Alkaline Phosphatase 77 39 - 117 U/L [facility] 12/25/2024 5:51 PM EST 12/25/2024 6:01 PM EST us Generic External Data Provider LAB BLOOD ORDERAB LES Final Result [facility] [address] [place] [address] [phone] * CBC auto differential (12/25/2024 5:51 PM EST) White Blood Count 6.7 4.8 - 10.8 X10*3/uL [facility] Red Blood Count 4.86 4.20 - 5.50 X10*6/uL [facility] Hemoglobin 13.3 12.0 - 16.0 g/dl [facility] Hematocrit 40.7 37.0 - 47.0 % [facility] Mean Corpuscular Volume 83.7 80.0 - 98.0 fL [facility] Mean Corpuscular Hemoglobin 27.4 27.0 - 33.0 pg [facility] Mean Corpuscular HGB Conc 32.7 31.0 - 35.0 g/dl [facility] Red Cell Distribution Width 12.9 11.0 - 16.0 % [facility] Platelet Count 170 160 - 400 X10*3/uL [facility] Mean Platelet Volume 12.3 9.4 - 12.3 fL [facility] Neutrophils Percent Auto 56.0 45 - 73 % [facility] Imm Gran Pct Auto 0.3 0.0 - 0.4 % [facility] Lymphocytes Percent Auto 34.1 20 - 40 % [facility] Monocytes Percent Auto 7.1 2 - 11 % [facility] Eosinophils Percent Auto 1.6 0 - 4 % [facility] Basophils Percent Auto 0.9 0 - 2 % [facility] NRBC Pct Auto 0.0 0.0 - 0.2 /100WBC [facility] Neutrophils Absolute Auto 3.8 2.0 - 8.3 x10*3/uL [facility] Imm Gran Abs Auto 0.02 0.00 - 0.03 X10*3/uL [facility] Lymphocytes Absolute Auto 2.3 1.2 - 4.9 X10*3/uL [facility] Monocytes Absolute Auto 0.5 0.1 - 1.2 X10*3/uL [facility] Eosinophils Absolute Auto 0.1 0.0 - 0.4 X10*3/uL [facility] Basophils Absolute Auto 0.1 0.0 - 0.2 X10*3/uL [facility] NRBC Abs Auto 0.000 0.0 - 0.012 X10*3/uL [facility] 12/25/2024 5:51 PM EST 12/25/2024 6:01 PM EST us Generic External Data Provider LAB BLOOD ORDERAB LES Final Result Performing Organization Address City/State/[facility] Co de Phone Number [facility] [address] [place] [address] [phone] documented in this encounter Visit Diagnoses Not on filedocumented in this encounter Additional Health Concerns Assessment Noted Time PHQ-9 Depression Total Score: 7 09/05/19 25 11:46 AM EDT documented as of this encounter Care Teams Project Management Manager Relationship Specialty Start Date End Date Name, MD Kiel [address] [place] [address] PCP - General Family Medicine 07/15/15 Katlyn Rodriguez PharmD [address] [place] [address] Pharmacist Internal Medicine 10/08/22 Ania Spencer 12/14/24 Marta Ovalle Air Brush DecoratorBurrer Machine 05/25/23 documented as of this encounter
--- OUTSIDE RECORDS SUMMARY | 2024-12-25 20:56 | XMS_ITS | Encounter Summary ---
Author Organization [employer] Address [address] [place] [address] 7t [place] [address] Care Team Providers Care Leather Patcher Name Role Phone Name, Kiel BAILEY Primary Care Provider [phone] Katlyn Rodriguez PharmD Unavailable Nehal Ann RN Unavailable Unavailable Ania Spencer Unavailable Opal Carrasquillo Unavailable Ania Spencer Unavailable Reason for Visit * Reason Comments Med Refill Encounter Details Date Type Department Care Team (Late st Contact Info) Description 07/16/2022 Refill [facility] MEDICINE [address] [place], [place] [phone] Name, MD Kiel [address] [place], [place] [phone] Chronic pain syndrome Social History Tobacco Use [...] Recorded In the last 10 days, have alpesh devlin been in contact with someone who was confirmed or suspected to have Coronavirus/COVID-19? No / Unsure 07/14/2022 2:29 PM EDT documented as of this encounter Plan of Treatment Upcoming Encounters Date Type Department Care Team (Late st Contact Info) Description 01/09/2025 9:00 AM EST Medication Management [address] [phone] Katlyn Rodriguez PharmD [address] [place] [address] 01/10/2025 11:30 AM EST Office Visit [address] [phone] Kiel Shaffer MD [address] [place] [address] 02/04/2025 11:30 AM EST Clinical Support [address] [phone] Opal Steiner, MARINA documented as of this encounter Visit Diagnoses Diagnosis Chronic pain syndrome documented in this encounter Additional Health Concerns Assessment Noted Time PHQ-9 Depression Total Score: 7 07/15/19 23 2:39 PM EDT documented as of this encounter Care Teams Leather Patcher Relationship Specialty Start Date End Date Kiel Shaffer MD [address] [place] [address] PCP - General Family Medicine 07/15/15 Katlyn Rodriguez, PharmD [address] [place] [address] Pharmacist Internal Medicine 10/08/22 Nehal Ann, MARINA [address] [place] [address] Registered Nurse Family Medicine 08/20/24 10/29/24 Ania Spencer 08/20/24 11/26/24 Opal Carrasquillo Registered Nurse 10/29/24 11/26/24 Ania Spencer 12/14/24 Marta Ovalle Commercial Construction SuperintendentMobile Developer 05/25/23 documented as of this encounter
--- OUTSIDE RECORDS SUMMARY | 2024-12-25 20:56 | XMS_ITS | Encounter Summary ---
Author Organization [employer] Address [address] [place] [address] 7t [place] [address] Care Team Providers Care Senior Officer Name Role Phone Name, Kiel BAILEY Primary Care Provider [phone] Katlyn Rodriguez PharmD Unavailable Nehal Ann RN Unavailable Unavailable Ania Spencer Unavailable Opal Carrasquillo Unavailable Ania Spencer Unavailable Encounter Details Date Type Department Care Team ([facility] Contact Info) Description 02/23/2022 Orders Only [facility] [address] [place], [place] [phone] Name, MD Kiel [address] [place], [place] [phone] Social History Tobacco Use Types Packs/Day Years [...] Department Care Team (Late Contact Info) Description 01/09/2025 9:00 AM EST Medication Management [address] [phone] Katlyn Rodriguez PharmD J[place], [place] 01/10/2025 11:30 AM EST Office Visit [address] [phone] Name, MD Kiel J[place], [place] 02/04/2025 11:30 AM EST Clinical Support [address] [phone] Opal Steiner, MARINA documented as of this encounter Visit Diagnoses Not on filedocumented in this encounter Care Teams Senior Officer Relationship Specialty Start Date End Date Name, MD Kiel [address] [place] [address] PCP - General Family Medicine 07/15/15 Katlyn Rodriguez PharmD [address] [place] [address] Pharmacist Internal Medicine 10/08/22 Nehal Ann, MARINA [address] [place] [address] Registered Nurse Family Medicine 08/20/24 10/29/24 Ania Spencer 08/20/24 11/26/24 Opal Carrasquillo Registered Nurse 10/29/24 11/26/24 Ania Spencer 12/14/24 Marta Ovalle Diabetes Territory ManagerPaperhanger Apprentice 05/25/23 documented as of this encounter
--- OUTSIDE RECORDS SUMMARY | 2024-12-25 20:56 | XMS_ITS | Encounter Summary ---
Author Organization [email or web address] Address [address] [place] [address] 7t [place] [address] Care Team Providers Care Safe Deposit Clerk Name Role Phone Name, Kiel BAILEY Primary Care Provider [phone] Katlyn Rodriguez PharmD Unavailable Nehal Ann RN Unavailable Unavailable Ania Spencer Unavailable Opal Carrasquillo Unavailable [phone] Ania Spencer Unavailable Reason for Visit * Reason Onset Date Comments Medication Problem 08/30/2023 Encounter Details Date Type Department Care Team (Late st Contact Info) Description 08/30/2023 Telephone [facility] MEDICINE [address] [place], [place] [phone] Name, MD Kiel [address] [place], [place] [phone] Medication Problem Social History Tobacco Use Types [...] Description 01/09/2025 9:00 AM EST Medication Management [address] [address] Katlyn Rodriguez, AngieD [address] [place] [address] 01/10/2025 11:30 AM EST Office Visit [address] [address] Name, MD Kiel [address] [place] [address] 02/04/2025 11:30 AM EST Clinical Support [address] [address] Obdulia, Opal, RN documented as of this [...] documented as of this encounter Care Teams Safe Deposit Clerk Relationship Specialty Start Date End Date Name, MD Kiel [address] [place] [address] PCP - General Family Medicine 07/15/15 Puia, Katlyn, PharmD [address] [place] [address] Pharmacist Internal Medicine 10/08/22 Nehal Ann RN [address] [place] [address] Registered Nurse Family Medicine 08/20/24 10/29/24 Ania Spencer 08/20/24 11/26/24 Opal Carrasquillo Registered Nurse 10/29/24 11/26/24 Ania Spencer 12/14/24 Marta vOalle Child Care AssociateSr Community Manager 05/25/23 documented as of this encounter
--- OUTSIDE RECORDS SUMMARY | 2024-12-25 20:56 | XMS_ITS | Encounter Summary ---
Author Organization [employer] Address [address] [facility] 7t [place] [address] Care Team Providers Care Airline Mechanic Name Role Phone Name, Kiel BAILEY Primary Care Provider [phone] Katlyn Rodriguez PharmD Unavailable [phone] Nehal Ann RN Unavailable Unavailable Ania Spencer Unavailable Opal Carrasquillo Unavailable Ania Spencer Unavailable Reason for Visit * Reason Comments Med Refill Encounter Details Date Type Department Care Team (Late st Contact Info) Description 09/07/2023 Refill [facility] MED & PEDS [address] [place] [address] Name, MD Kiel [address] [place] [address] Type 2 diabetes mellitus with other specified [...] Description 01/09/2025 9:00 AM EST Medication Management [address] [address] Katlyn Rodriguez PharmD [address] [place] [address] 01/10/2025 11:30 AM EST Office Visit [address] [address] Name, MD Kiel [address] [place] [address] 02/04/2025 11:30 AM EST Clinical Support [address] [address] Opal Steiner, RN documented as of this [...] documented as of this encounter Care Teams Airline Mechanic Relationship Specialty Start Date End Date Name, MD Kiel [address] [place] [address] PCP - General Family Medicine 07/15/15 Katlyn Rodriguez, PharmD [address] [place] [address] Pharmacist Internal Medicine 10/08/22 Nehal Ann RN [address] [place] [address] Registered Nurse Family Medicine 08/20/24 10/29/24 Ania Spencer 08/20/24 11/26/24 Opal Carrasquillo Registered Nurse 10/29/24 11/26/24 Ania Spencer 12/14/24 Marta Ovalle Production Statistical ClerkDairy Technologist 05/25/23 documented as of this encounter
--- OUTSIDE RECORDS SUMMARY | 2024-12-25 20:56 | XMS_ITS | Encounter Summary ---
Author Organization [employer] Address [address] [place] [address] 7t [place] [address] Care Team Providers Care Microbiology Lab Technician Name Role Phone Name, Kiel BAILEY Primary Care Provider [phone] Katlyn Rodriguez PharmD Unavailable Nehal Ann RN Unavailable Unavailable Ania Spencer Unavailable Opal Carrasquillo Unavailable [phone] Ania Spencer Unavailable Reason for Visit * Reason Comments Med Refill Encounter Details Date Type Department Care Team (Late st Contact Info) Description 06/28/2022 Refill [facility] MEDICINE [address] [place], [place] [phone] Name, MD Kiel [address] [place], [place] [phone] Chronic pain syndrome Social History Tobacco Use [...] Description 01/09/2025 9:00 AM EST Medication Management [address] [address] Katlyn Rodriguez PharmD [address] [place] [address] 01/10/2025 11:30 AM EST Office Visit [address] [address] Name, MD Kiel [address] [place] [address] 02/04/2025 11:30 AM EST Clinical Support [address] [address] Opal Steiner RN documented as of this encounter Visit Diagnoses Diagnosis Chronic pain syndrome documented in this encounter Care Teams Microbiology Lab Technician Relationship Specialty Start Date End Date Name, MD Kiel [address] [place] [address] PCP - General Family Medicine 07/15/15 Katlyn Rodriguez PharmD [address] [place] [address] Pharmacist Internal Medicine 10/08/22 Nehal Ann, MARINA [address] [place] [address] Registered Nurse Family Medicine 08/20/24 10/29/24 Ania Spencer 08/20/24 11/26/24 Opal Carrasquillo Registered Nurse 10/29/24 11/26/24 Ania Spencer 12/14/24 Marta Ovalle Nurse Staff IndustrialAcid Blower 05/25/23 documented as of this encounter
--- OUTSIDE RECORDS SUMMARY | 2024-12-25 20:56 | XMS_ITS | Encounter Summary ---
Author Organization [facility] Address [address] [place] [address] Care Team Providers Care Dietary Director Name Role Phone Name, Kiel BAILEY Primary Care Provider [phone] Encounter Details Date Type Department Care Team Description 09/10/2022 Social Work [facility] [address] [place] [address] Adina Archer, [facility] Social History Tobacco Use Types Packs/Day Years [...] on filedocumented in this encounter Care Teams Dietary Director Relationship Specialty Start Date End Date Name, MD Kiel [address] [place] [address] [address] [place] [address] PCP - General Internal Medicine 04/17/18 documented as of this encounter
--- OUTSIDE RECORDS SUMMARY | 2024-12-25 20:56 | XMS_ITS | Encounter Summary ---
Author Organization [employer] Address [address] [facility] 7t [place] [address] Care Team Providers Care Cost Control Specialist Name Role Phone Name, Kiel BAILEY Primary Care Provider [phone] Katlyn Rodriguez PharmD Unavailable [phone] Ania Spencer Unavailable Reason for Visit * Reason Onset Date Comments FYI 12/25/2024 Encounter Details Date Type Department Care Team ([facility] st Contact Info) Description 12/25/2024 Telephone [facility] [address] [place] [address] Name, MD Kiel [address] [place] [address] FYI Social History Tobacco Use Types Packs/Day [...] Telephone Encounter - Meghan Ramirez RN - 12/25/2024 1:44 PM EST Referral request reviewed by pcp. PCP states pt already follows with a neurologist at [facility]. * Telephone Encounter - Garertt Ovalle - 12/25/2024 10:46 AM EST Tc from sirena with [facility] PT is calling to recommend a neurologist for pt If possible due to paststroke history and recent fall. Sirena also further stated she had a fall in their facility while attending them. Sirena feels it'd be best to be seen with a neurologist to verify if pt would be needing more PT they will be cleared. If any questions contact Sirena at [phone]. documented in this encounter Plan of Treatment Upcoming Encounters Date Type Department Care Team (Late st Contact Info) Description 01/09/2025 9:00 AM EST Medication Management [facility] [address] [place] [address] Puia, Katlyn, PharmD [facility] [place] [address] 01/10/2025 11:30 AM EST Office Visit [facility] [place] [address] Name, MD Kiel [facility] [place] [address] 02/04/2025 11:30 AM EST Clinical Support [facility] [place], [place] [phone] Opal Steiner, MARINA documented as of this [...] documented as of this encounter Care Teams Cost Control Specialist Relationship Specialty Start Date End Date NameKiel MD [facility] [place] [address] PCP - General Family Medicine 07/15/15 Puia, Katlyn, PharmD [facility] [place] [address] Pharmacist Internal Medicine 10/08/22 Ania Spencer 12/14/24 Marta Ovalle Etl TesterBox Office Attendant 05/25/23 documented as of this encounter
--- OUTSIDE RECORDS SUMMARY | 2024-12-25 20:56 | XMS_ITS | Encounter Summary ---
Author Organization [employer] Address [address] [place] [address] 7t [place] [address] Care Team Providers Care Oracle Database Administrator Name Role Phone Name, Kiel BAILEY Primary Care Provider [phone] Katlyn Rodriguez PharmD Unavailable [phone] Nehal Ann RN Unavailable Unavailable Ania Spencer Unavailable Opal Carrasquillo Unavailable Ania Spencer Unavailable Reason for Visit * Reason Comments Med Refill Encounter Details Date Type Department Care Team (Late st Contact Info) Description 07/02/2022 Refill [facility] MEDICINE [address] [place], [place] [phone] Name, MD Kiel [address] [place], [place] [phone] Chronic pain syndrome Social History Tobacco Use [...] Description 01/09/2025 9:00 AM EST Medication Management [address] [address] Katlyn Rodriguez PharmD [address] [place] [address] 01/10/2025 11:30 AM EST Office Visit [address] [address] Name, MD Kiel [address] [place] [address] 02/04/2025 11:30 AM EST Clinical Support [address] [address] Opal Steiner RN documented as of this encounter Visit Diagnoses Diagnosis Chronic pain syndrome documented in this encounter Care Teams Oracle Database Administrator Relationship Specialty Start Date End Date Name, MD Kiel [address] [place] [address] PCP - General Family Medicine 07/15/15 Katlyn Rodriguez PharmD [address] [place] [address] Pharmacist Internal Medicine 10/08/22 Nehal Ann, MARINA [address] [place] [address] Registered Nurse Family Medicine 08/20/24 10/29/24 Ania Spencer 08/20/24 11/26/24 Opal Carrasquillo Registered Nurse 10/29/24 11/26/24 Ania Spencer 12/14/24 Marta Ovalle Cylinder Valve RepairerRailroad Car Loader 05/25/23 documented as of this encounter
--- OUTSIDE RECORDS SUMMARY | 2024-12-25 20:56 | XMS_ITS | Encounter Summary ---
Author Organization [employer] Address [address] [place] [address] 7t [place] [address] Care Team Providers Care Labor Relations Consultant Name Role Phone Name, Kiel BAILEY Primary Care Provider [phone] Katlyn Rodriguez PharmD Unavailable Nehal Ann RN Unavailable Unavailable Ania Spencer Unavailable Opal Carrasquillo Unavailable [phone] Ania Spencer Unavailable Encounter Details Date Type Department Care Team (Late st Contact Info) Description 07/01/2022 Abstract [facility] MEDICINE 230 [place], [place] [phone] Name, MD Kiel 230 [place], [place] [phone] Social History Tobacco Use Types Packs/Day Years [...] Description 01/09/2025 9:00 AM EST Medication Management [address] [phone] Katlyn Rodriguez PharmD [address] [place] [address] 01/10/2025 11:30 AM EST Office Visit [address] [phone] Name, MD Kiel [address] [place] [address] 02/04/2025 11:30 AM EST Clinical Support [address] [phone] Opal Steiner, MARINA documented as of this encounter Visit Diagnoses Not on filedocumented in this encounter Care Teams Labor Relations Consultant Relationship Specialty Start Date End Date Name, MD Kiel [address] [place] [address] PCP - General Family Medicine 07/15/15 Katlyn Rodriguez PharmD [address] [place] [address] Pharmacist Internal Medicine 10/08/22 Nehal Ann, MARINA [address] [place] [address] Registered Nurse Family Medicine 08/20/24 10/29/24 Ania Spencer 08/20/24 11/26/24 Opal Carrasquillo Registered Nurse 10/29/24 11/26/24 Ania Spencer 12/14/24 Marta Ovalle Boxing InstructorChicken Stuffer 05/25/23 documented as of this encounter
--- OUTSIDE RECORDS SUMMARY | 2024-12-25 20:56 | XMS_ITS | Encounter Summary ---
Author Organization [employer] Address [address] [place] [address] 7t [place] [address] Care Team Providers Care Aluminum Shingle Roofer Name Role Phone Name, Kiel BAILEY Primary Care Provider [phone] Katlyn Rodriguez PharmD Unavailable [phone] Nehal Ann RN Unavailable Unavailable Ania Spencer Unavailable Opal Carrasquillo Unavailable [phone] Ania Spencer Unavailable Reason for Visit * Reason Comments Med Refill Encounter Details Date Type Department Care Team (Late st Contact Info) Description 04/25/2022 Refill [facility] MEDICINE 230 [place], [place] [phone] Name, MD Kiel 230 [place], [place] [phone] Diabetes mellitus type 2 in obese (CMS/HCC) [...] Description 01/09/2025 9:00 AM EST Medication Management [address] [address] Katlyn Rodriguez PharmD [address] [place] [address] 01/10/2025 11:30 AM EST Office Visit [address] [address] Name, MD Kiel [address] [place] [address] 02/04/2025 11:30 AM EST Clinical Support [address] [phone] Opal Steiner, MARINA documented as of this encounter Visit Diagnoses Diagnosis Diabetes mellitus type 2 in obese- Primary Type II or unspecified type diabetes mellitus without mention of complication, not stated as uncontrolled documented in this encounter Care Teams Aluminum Shingle Roofer Relationship Specialty Start Date End Date Name, MD Kiel [address] [place] [address] PCP - General Family Medicine 07/15/15 Katlyn Rodriguez, AngieD [address] [place] [address] Pharmacist Internal Medicine 10/08/22 Nehal Ann, MARINA [address] [place] [address] Registered Nurse Family Medicine 08/20/24 10/29/24 Ania Spencer 08/20/24 11/26/24 Opal Carrasquillo Registered Nurse 10/29/24 11/26/24 Ania Spencer 12/14/24 Marta Ovalle Field Training ManagerKitchen Work Supervisor 05/25/23 documented as of this encounter
--- OUTSIDE RECORDS SUMMARY | 2024-12-25 20:56 | XMS_ITS | Encounter Summary ---
Author Organization [employer] Address [address] [place] [address] 7t [place] [address] Care Team Providers Care Security Nurse Name Role Phone Name, Kiel BAILEY Primary Care Provider [phone] Katlyn Rodriguez PharmD Unavailable Nehal Ann RN Unavailable Unavailable Ania Spencer Unavailable Opal Carrasquillo Unavailable [phone] Ania Spencer Unavailable Reason for Visit * Reason Comments Med Refill Encounter Details Date Type Department Care Team (Late st Contact Info) Description 04/15/2023 Refill [facility] MEDICINE 230 [place], [place] [phone] Yaneth Restrepo FNP 230 [place] [address] Diabetes mellitus type 2 in obese (CMS/HCC) [...] Description 01/09/2025 9:00 AM EST Medication Management [address] [address] Katlyn Rodriguez, PharmD [address] [place] [address] 01/10/2025 11:30 AM EST Office Visit [address] [address] Name, MD Kiel [address] [place] [address] 02/04/2025 11:30 AM EST Clinical Support [address] [address] Opal Steiner RN documented as of this [...] documented as of this encounter Care Teams Security Nurse Relationship Specialty Start Date End Date Name, MD Kiel [address] [place] [address] PCP - General Family Medicine 07/15/15 Katlyn Rodriguez PharmD [address] [place] [address] Pharmacist Internal Medicine 10/08/22 Nehal Ann RN [address] [place] [address] Registered Nurse Family Medicine 08/20/24 10/29/24 Ania Spencer 08/20/24 11/26/24 Opal Carrasquillo Registered Nurse 10/29/24 11/26/24 Ania Spencer 12/14/24 Marta Ovalle Tiler'S AssistantConcrete Smoother 05/25/23 documented as of this encounter
--- OUTSIDE RECORDS SUMMARY | 2024-12-25 20:56 | XMS_ITS | Encounter Summary ---
Author Organization [employer] Address [address] [facility] 7t [place] [address] Care Team Providers Care Roundsman Name Role Phone Name, Kiel BAILEY Primary Care Provider [phone] Katlyn Rodriguez PharmD Unavailable [phone] Ania Spencer Unavailable Reason for Visit * Reason Onset Date Comments Results 12/24/2024 Pt requesting wh eelchair , pt stated she's falling too much. Encounter Details Date Type Department Care Team ([facility] st Contact Info) Description 12/24/2024 Telephone [facility] [place] [facility] MEDICINE 230 [place], [place] [phone] Name, MD Kiel 230 [place] [address] Results (Pt requesting wheelchair , pt stated she's falling too much. ) Social History Tobacco Use Types Packs/Day [...] the past 12 months, has t he [employer], gas, oil or water [employer] threatened to shut off services in your [...] Description 01/09/2025 9:00 AM EST Medication Management [address] [address] Katlyn Rodriguez, PharmD [address] [place] [address] 01/10/2025 11:30 AM EST Office Visit [address] [address] Name, MD Kiel [address] [place] [address] 02/04/2025 11:30 AM EST Clinical Support [address] [address] Opal Steiner, MARINA documented as of this [...] documented as of this encounter Care Teams Roundsman Relationship Specialty Start Date End Date Name, MD Kiel 230 [place] [address] PCP - General Family Medicine 07/15/15 Puia, Katlyn, PharmD 230 [place] [address] Pharmacist Internal Medicine 10/08/22 Ania Spencer 12/14/24 Marta Ovalle All Source Intelligence AnalystResources Representative 05/25/23 documented as of this encounter
--- OUTSIDE RECORDS SUMMARY | 2024-12-25 20:56 | XMS_ITS | Encounter Summary ---
Author Organization [employer] Address [address] [place] [address] 7t [place] [address] Care Team Providers Care Unitizer Name Role Phone Name, Kiel BAILEY Primary Care Provider [phone] Katlyn Rodriguez PharmD Unavailable Nehal Ann RN Unavailable Unavailable Ania Spencer Unavailable Opal Carrasquillo Unavailable Ania Spencer Unavailable Reason for Visit * Reason Onset Date Comments Reschedule 08/01/2023 Encounter Details Date Type Department Care Team (Late st Contact Info) Description 08/01/2023 Telephone [facility] MEDICINE 230 [place], [place] [phone] Name, MD Kiel 230 [place], [place] [phone] Reschedule Social History Tobacco Use Types Packs/Day [...] 08/01/2023 9:55 AM EDT Triage call with [employer] E Merchant ID [id number] . Pt reports Covid + test this [...] 08/01/2023 9:04 AM EDT Patient cancelled todays PATIENT RESOURCE SPECIALIST RV appt today. Pt's PATIENT RESOURCE SPECIALIST appt has been rescheduled for chronic pain [...] AM EDT Tc from pt requesting r/s PATIENT RESOURCE SPECIALIST appt, stated is sick and suspect is COVID documented in this encounter Plan of Treatment Upcoming Encounters Date Type Department Care Team (Late st Contact Info) Description 01/09/2025 9:00 AM EST Medication Management [facility] [address] [place] [address] Katlyn Rodriguez, PharmD 230 [place] [address] 01/10/2025 11:30 AM EST Office Visit [facility] [address] [place] [address] Name, [place] [address] 02/04/2025 11:30 AM EST Clinical Support [address] [address] Opal Steiner, MARINA documented as of this [...] documented as of this encounter Care Teams Unitizer Relationship Specialty Start Date End Date Name[place] [address] PCP - General Family Medicine 07/15/15 Puia, Katlyn, PharmD [address] [place] [address] Pharmacist Internal Medicine 10/08/22 Nehal Ann, MARINA [address] [place] [address] Registered Nurse Family Medicine 08/20/24 10/29/24 Ania Spencer 08/20/24 11/26/24 Opal Carrasquillo Registered Nurse 10/29/24 11/26/24 Ania Spencer 12/14/24 Marta Ovalle Buckram SewerScrew Machine Operator 05/25/23 documented as of this encounter
--- OUTSIDE RECORDS SUMMARY | 2024-12-25 20:57 | XMS_ITS | Encounter Summary ---
Author Organization [employer] Address [address] [place] [address] 7t [place] [address] Care Team Providers Care Livestock Yard Supervisor Name Role Phone Name, Kiel BAILEY Primary Care Provider [phone] Katlyn Rodriguez PharmD Unavailable Nehal Ann RN Unavailable Unavailable Ania Spencer Unavailable Opal Carrasquillo Unavailable Ania Spencer Unavailable Reason for Visit * Reason Onset Date Comments FYI 08/03/2024 Encounter Details Date Type Department Care Team (Late st Contact Info) Description 08/03/2024 Telephone [facility] MEDICINE 230 [place], [place] [phone] Name, MD Kiel 230 [place], [place] [phone] FYI Social History Tobacco Use Types Packs/Day [...] any questions you can contact pt at [phone], documented in this encounter Plan of Treatment Upcoming Encounters Date Type Department Care Team (Late st Contact Info) Description 01/09/2025 9:00 AM EST Medication Management [facility]INE 230 [place] [address] Katlyn Rodriguez, PharmD 230 [place] [address] 01/10/2025 11:30 AM EST Office Visit [facility] [place] [address] [place] [address] 02/04/2025 11:30 AM EST Clinical Support [address] [address] Opal Steiner, MARINA documented as of this [...] documented as of this encounter Care Teams Livestock Yard Supervisor Relationship Specialty Start Date End Date [place] [address] PCP - General Family Medicine 07/15/15 Puia, Katlyn, PharmD [address] [place] [address] Pharmacist Internal Medicine 10/08/22 Nehal Ann, MARINA [address] [place] [address] Registered Nurse Family Medicine 08/20/24 10/29/24 Ania Spencer 08/20/24 11/26/24 Opal Carrasquillo Registered Nurse 10/29/24 11/26/24 Ania Spencer 12/14/24 Marta Ovalle Train AnnouncerBeading Installer 05/25/23 documented as of this encounter
--- OUTSIDE RECORDS SUMMARY | 2024-12-25 20:57 | XMS_ITS | Encounter Summary ---
Author Organization [employer] Address [address] [place] [address] 7t [place] [address] Care Team Providers Care Currency Machine Operator Name Role Phone Name, Keil BAILEY Primary Care Provider [phone] Katlyn Rodriguez PharmD Unavailable Nehal Ann RN Unavailable Unavailable Ania Spencer Unavailable Opal Carrasquillo Unavailable Ania Spencer Unavailable Reason for Visit * Reason Onset Date Comments Durable Medical Equipment 12/06/2022 Encounter Details Date Type Department Care Team (Late st Contact Info) Description 12/06/2022 Telephone [facility] MEDICINE 230 [place], [place] [phone] Name, MD Kiel 230 [place], [place] [phone] Durable Medical Equipment Social History Tobacco Use [...] to message above. Please contact pt at [phone] (Kosovan) * Telephone Encounter - Jean-Paul Finch - 12/06/2022 3:29 PM EDT Tc from pt requesting status on some bed absorbant pads to not stain bed. Please contact pt at [phone] Kosovan Speaker documented in this encounter Plan of Treatment Upcoming Encounters Date Type Department Care Team (Late st Contact Info) Description 01/09/2025 9:00 AM EST Medication Management [facility] MEDICINE [address] [place] [address] Puia, Katlyn, [place] [address] 01/10/2025 11:30 AM EST Office Visit [address] [address] Name, MD Kiel [place], [place] 02/04/2025 11:30 AM EST Clinical Support [address] [address] Opal Steiner RN documented as of this [...] documented as of this encounter Care Teams Currency Machine Operator Relationship Specialty Start Date End Date Name, [place] [address] PCP - General Family Medicine 07/15/15 Puia, Katlyn, PharmD [address] [place] [address] Pharmacist Internal Medicine 10/08/22 Nehal Ann, MARINA [address] [place] [address] Registered Nurse Family Medicine 08/20/24 10/29/24 Ania Spencer 08/20/24 11/26/24 Opal Carrasquillo Registered Nurse 10/29/24 11/26/24 Ania Spencer 12/14/24 Marta Ovalle Tibco DeveloperHospitalist Physician 05/25/23 documented as of this encounter
--- OUTSIDE RECORDS SUMMARY | 2024-12-25 20:57 | XMS_ITS | Clinical Summary ---
Author Organization [facility] Address [address] [place] [address] [place] [address] Phone Care Team Providers Care Master Dyer Name Role Phone Unavailable Primary Care Provider [...] Devices Not on file Insurance [employer] [place] [address] [address] [place] [place] [address] [place] [address] [place] [place] [place] [address] [employer] Additional Source Comments The information contained in this document represents components of the legal health record. It is not the complete legal health record.[facility]
--- OUTSIDE RECORDS SUMMARY | 2024-12-25 20:57 | XMS_ITS | Encounter Summary ---
Author Organization [employer] Address [address] [facility] 7t [place] [address] Care Team Providers Care Refrigeration Engine Operator Name Role Phone Name, Kiel BAILEY Primary Care Provider [phone] Katlyn Rodriguez PharmD Unavailable [phone] Nehal Ann RN Unavailable Unavailable Ania Spencer Unavailable Opal Carrasquillo Unavailable Ania Spencer Unavailable Reason for Visit * Reason Comments Med Refill Encounter Details Date Type Department Care Team (Late st Contact Info) Description 06/08/2024 Refill [facility] MED [facility] PEDS [address] [place], [place] [phone] Name, MD Kiel 230 [place] [address] Chronic pain syndrome Social History Tobacco Use [...] the past 12 months, has t he [employer], gas, oil or water company threatened to [...] Description 01/09/2025 9:00 AM EST Medication Management [address] [address] Katlyn Rodriguez PharmD [address] [place] [address] 01/10/2025 11:30 AM EST Office Visit [address] [address] Name, MD Kiel [address] [place] [address] 02/04/2025 11:30 AM EST Clinical Support [address] [address] Opal Steiner, RN documented as of this [...] documented as of this encounter Care Teams Refrigeration Engine Operator Relationship Specialty Start Date End Date Name, MD Kiel 230 [place] [address] PCP - General Family Medicine 07/15/15 Puia, Katlyn, PharmD 230 [place] [address] Pharmacist Internal Medicine 10/08/22 Nehal Ann, MARINA 230 [place] [address] Registered Nurse Family Medicine 08/20/24 10/29/24 Ania Spencer 08/20/24 11/26/24 Opal Carrasquillo Registered Nurse 10/29/24 11/26/24 Ania Spencer 12/14/24 Marta Ovalle Band PresserFence Post Driver 05/25/23 documented as of this encounter
--- OUTSIDE RECORDS SUMMARY | 2024-12-25 20:57 | XMS_ITS | Encounter Summary ---
Author Organization [facility] Address [address] [facility] [address] [place] [address] Phone Care Team Providers Care Weaving Professor Name Role Phone Unavailable Primary Care Provider Unavailabl e Encounter Details Date Type Department Care Team (Latest Contact Info) Description 01/04/2020 Ancillary Orders [facility] [address] [place] [address] [place] [address] Bright Jesus, DO [address] [place] [address] Chest pain, unspecified type Social History Tobacco [...] It is not the complete legal health record.[facility]
--- OUTSIDE RECORDS SUMMARY | 2024-12-25 20:57 | XMS_ITS | Encounter Summary ---
Author Organization [employer] Address [address] [facility] 7t [place] [address] Care Team Providers Care Web Press Roll Tender Name Role Phone Name, Kiel BAILEY Primary Care Provider [phone] Katlyn Rodriguez PharmD Unavailable [phone] Ania Spencer Unavailable Reason for Visit * Reason Comments Med Refill Encounter Details Date Type Department Care Team ([facility] st Contact Info) Description 12/07/2024 Refill [facility] MEDICINE 230 [place] [address] Name, MD Kiel 230 [place] [address] Cerebellar mass; Chronic intractable headache, unspecified headache [...] Description 01/09/2025 9:00 AM EST Medication Management [address] [address] Katlyn Rodriguez PharmD [address] [place] [address] 01/10/2025 11:30 AM EST Office Visit [address] [address] Name, MD Kiel [address] [place] [address] 02/04/2025 11:30 AM EST Clinical Support [address] [address] Opal Steiner RN documented as of this encounter Goals Goal Patient Goal Type Associated Problems Recent Progress Patient-Stated? Author Record your blood pressure once per day Blood Pressure No Puia, Katlyn, PharmD Blood Pressure < 140/90 Blood Pressure 136/87(2024 11:09 AM EST) No Puia Katlyn, PharmD Hemoglobin A1c < [...] as of this encounter Care Teams Web Press Roll Tender Relationship Specialty Start Date End Date Name, MD Kiel [address] [place] [address] PCP - General Family Medicine 07/15/15 Katlyn Rodriguez PharmD [address] [place] [address] Pharmacist Internal Medicine 10/08/22 Ania Spencer 12/14/24 Marta Ovalle Hourly AssociateIndustrial Furnace Fabricator 05/25/23 documented as of this encounter
--- OUTSIDE RECORDS SUMMARY | 2024-12-25 20:57 | XMS_ITS | Encounter Summary ---
Author Organization [employer] Address [address] [place] [address] 7t [place] [address] Care Team Providers Care Slide Machine Tender Name Role Phone Name, Kiel BAILEY Primary Care Provider [phone] Katlyn Rodriguez PharmD Unavailable [phone] Nehal Ann RN Unavailable Unavailable Ania Spencer Unavailable Opal Carrasquillo Unavailable Ania Spencer Unavailable Reason for Visit * Reason Onset Date Comments Durable Medical Equipment 01/24/2023 Encounter Details Date Type Department Care Team (Late st Contact Info) Description 01/24/2023 Telephone [facility] MEDICINE 230 [place], [place] [phone] Name, MD Kiel 230 [place], [place] [phone] Durable Medical Equipment Social History Tobacco Use [...] to errol. Any questions, contact pt at [phone] documented in this encounter Plan of Treatment Upcoming Encounters Date Type Department Care Team (Late st Contact Info) Description 01/09/2025 9:00 AM EST Medication Management [address] [address] Katlyn Rodriguez, PharmD [address] [place] [address] 01/10/2025 11:30 AM EST Office Visit [address] [address] Name, MD Kiel [address] [place] [address] 02/04/2025 11:30 AM EST Clinical Support [address] [address] Opal Steiner, MARINA documented as of this [...] documented as of this encounter Care Teams Slide Machine Tender Relationship Specialty Start Date End Date Name, MD Kiel 230 [place] [address] PCP - General Family Medicine 07/15/15 Puia, Katlyn, PharmD 230 [place] [address] Pharmacist Internal Medicine 10/08/22 Nehal Ann RN [address] [place] [address] Registered Nurse Family Medicine 08/20/24 10/29/24 Ania Spencer 08/20/24 11/26/24 Opal Carrasquillo Registered Nurse 10/29/24 11/26/24 Ania Spencer 12/14/24 Marta Ovalle Security ClerkDebt Recovery Officer 05/25/23 documented as of this encounter
--- OUTSIDE RECORDS SUMMARY | 2024-12-25 20:57 | XMS_ITS | Encounter Summary ---
Author Organization [employer] Address [address] [facility] 7t [place] [address] Care Team Providers Care Control System Computer Scientist Name Role Phone Name, Kiel BAILEY Primary Care Provider [phone] Katlyn Rodriguez PharmD Unavailable [phone] Nehal Ann RN Unavailable Unavailable Ania Spencer Unavailable Opal Carrasquillo Unavailable [phone] Ania Spencer Unavailable Encounter Details Date Type Department Care Team (Late st Contact Info) Description 08/26/2022 Orders Only [facility] MEDICINE 230 [place] [address] Leia Gonzales LPN Social History Tobacco Use [...] 01/09/2025 9:00 AM EST Medication Management [facility] [place] [address] Katlyn Rodriguez PharmD Jai [facility] [place] 01/10/2025 11:30 AM EST Office Visit [address] [place] [address] Name, MD Kiel Jai [facility] [place] 02/04/2025 11:30 AM EST Clinical Support [address] [address] Opal Steiner, MARINA documented as of this encounter Visit Diagnoses Not on filedocumented in this encounter Additional Health Concerns Assessment Noted Time PHQ-9 Depression Total Score: 7 07/15/19 23 2:39 PM EDT documented as of this encounter Care Teams Control System Computer Scientist Relationship Specialty Start Date End Date Name, MD Kiel [facility] [place] [address] PCP - General Family Medicine 07/15/15 Katlyn Rodriguez, [place] [address] Pharmacist Internal Medicine 10/08/22 Nehal Ann, MARINA [address] [place] [address] Registered Nurse Family Medicine 08/20/24 10/29/24 Ania Spencer 08/20/24 11/26/24 Opal Carrasquillo Registered Nurse 10/29/24 11/26/24 Ania Spencer 12/14/24 Marta Ovalle Lead Cargo MoverCigarette Maker 05/25/23 documented as of this encounter
--- OUTSIDE RECORDS SUMMARY | 2024-12-25 20:57 | XMS_ITS | Encounter Summary ---
Author Organization [employer] Address [address] [place] [address] 7t [place] [address] Care Team Providers Care Mattress Stuffer Name Role Phone Name, Kiel BAILEY Primary Care Provider [phone] Katlyn Rodriguez PharmD Unavailable Nehal Ann RN Unavailable Unavailable Ania Spencer Unavailable Opal Carrasquillo Unavailable Ania Spencer Unavailable Reason for Visit * Reason Onset Date Comments FYI 08/03/2024 Encounter Details Date Type Department Care Team (Late st Contact Info) Description 08/03/2024 Telephone [facility] MEDICINE 230 [place], [place] [phone] Name, MD Kiel 230 [place], [place] [phone] FYI Social History Tobacco Use Types Packs/Day [...] - 08/03/2024 2:00 PM EDT Tc from [facility] with N stating pt has an upcoming appointment with pcp and would like to report: 1) Pt was discharged yesterday 08/02. Reason: COPD. 2) F/u Left ear symptoms. Pt unable to hear. 3) F/u pull up prescription. Any questions contact [facility] [phone] documented in this encounter Plan of Treatment Upcoming Encounters Date Type Department Care Team (Late st Contact Info) Description 01/09/2025 9:00 AM EST Medication Management [address] [phone] Puia, Katlyn, PharmD [address] [place] [address] 01/10/2025 11:30 AM EST Office Visit [address] [address] Name, MD Kiel [address] [place] [address] 02/04/2025 11:30 AM EST Clinical Support [address] [phone] Opal Steiner RN documented as of this [...] documented as of this encounter Care Teams Mattress Stuffer Relationship Specialty Start Date End Date Name, MD Kiel [address] [place] [address] [phone] PCP - General Family Medicine 07/15/15 Puia, Katlyn, PharmD [address] [place] [address] Pharmacist Internal Medicine 10/08/22 Nehal Ann, RN [address] [place] [address] Registered Nurse Family Medicine 08/20/24 10/29/24 Ania Spencer 08/20/24 11/26/24 Opal Carrasquillo Registered Nurse 10/29/24 11/26/24 Ania Spencer 12/14/24 Marta Ovalle Vp Celebrity ServicesStore Operations Specialist 05/25/23 documented as of this encounter
--- OUTSIDE RECORDS SUMMARY | 2024-12-25 20:57 | XMS_ITS | Encounter Summary ---
Author Organization [employer] Address [address] [place] [address] 7t [place] [address] Care Team Providers Care Talent Director Name Role Phone Name, Kiel BAILEY Primary Care Provider [phone] Katlyn Rodriguez PharmD Unavailable Nehal Ann RN Unavailable Unavailable Ania Spencer Unavailable Oapl Carrasquillo Unavailable Ania Spencer Unavailable Reason for Visit * Reason Onset Date Comments Appointment Request 02/29/2024 Encounter Details Date Type Department Care Team (Late st Contact Info) Description 02/29/2024 Telephone [facility] MEDICINE 230 [place], [place] [phone] Name, MD Kiel [address] [place], [place] [phone] Appointment Request Social History Tobacco Use Types [...] different date and time. Pt does speak ukrainian so you will need an oil sales and service rep. documented in this encounter Plan of Treatment Upcoming Encounters Date Type Department Care Team (Late st Contact Info) Description 01/09/2025 9:00 AM EST Medication Management [facility] [address] [place] [address] Katlyn Rodriguez, AngieD [address] [place] [address] 01/10/2025 11:30 AM EST Office Visit [facility] [address] [place] [address] Name, MD Kiel [address] [place] [address] 02/04/2025 11:30 AM EST Clinical Support [facility] [address] [place] [address] Opal Steiner, RN documented as of this [...] documented as of this encounter Care Teams Talent Director Relationship Specialty Start Date End Date Name, MD Kiel [address] [place] [address] PCP - General Family Medicine 07/15/15 Puia, Katlyn, PharmD [address] [place] [address] Pharmacist Internal Medicine 10/08/22 Nehal Ann, MARINA [address] [place] [address] Registered Nurse Family Medicine 08/20/24 10/29/24 Ania Spencer 08/20/24 11/26/24 Opal Carrasquillo Registered Nurse 10/29/24 11/26/24 Ania Spencer 12/14/24 Marta Ovalle Rubber Compounder MixerLegal Technician 05/25/23 documented as of this encounter
--- OUTSIDE RECORDS SUMMARY | 2024-12-25 20:57 | XMS_ITS ---
Author Organization [employer] Address [address] [place] [address] 7t [place] [address] Care Team Providers Care Public Health Engineer Name Role Phone Name, Kiel BAILEY Primary Care Provider [phone] Katlyn Rodriguez PharmD Unavailable Ania Spencer Unavailable [facility] Status:Outreach In Progress (Enrolling) Start date:12/14/2024 Enrollment reason:ADT Feed Overview ADT-CP assigned [facility] ED 12/13/24 Case Team Name Relationship Phone Ania Spencer(Responsible Staff) [phone] Continued Care and Services Coordination
--- OUTSIDE RECORDS SUMMARY | 2024-12-25 20:57 | XMS_ITS | Encounter Summary ---
Author Organization [employer] Address [address] [place] [address] 7[place] [address] Care Team Providers Care Template Layout Worker Name Role Phone Name, Kiel BAILEY Primary Care Provider [phone] Katlyn Rodriguez PharmD Unavailable Nehal Ann RN Unavailable Unavailable Ania Spencer Unavailable Opal Carrasquillo Unavailable Ania Spencer Unavailable Reason for Referral * Consultation (Routine) - Closed Specialty Diagnoses / Procedures Referred By Carroll hoover Referred To Contact Occupational Therapy Diagnoses Left arm weakness Lizzie Alfaro NP 230 [place] [address] Phone: tel: fax: [facility] [address] [place] [address] Phone: tel: fax: Referral ID Status Reason Start Date Expiration Date V isits Requested Visits Authorized [id number] Closed Specialty Services Required 09/06/2024 09/06/2025 20 20 Encounter Details Date Type Department Care Team (Late st Contact Info) Description 09/06/2024 Orders Only [facility] MEDICINE 230 [place] [address] Lizzie Alfaro NP 230 [place] [address] Left arm weakness (Primary Dx) Social History [...] Description 01/09/2025 9:00 AM EST Medication Management [facility] MEDICINE [address] [place] [address] Katlyn Rodriguez, PharmD 230 [place] [address] 01/10/2025 11:30 AM EST Office Visit [address] [address] Name, MD Kiel [address] [place] [address] 02/04/2025 11:30 AM EST Clinical Support [address] [address] Opal Steiner, MARINA Scheduled Referrals Name Type [...] documented as of this encounter Care Teams Template Layout Worker Relationship Specialty Start Date End Date Name, MD Kiel [address] [place] [address] PCP - General Family Medicine 07/15/15 Puia, Katlyn, PharmD [address] [place] [address] Pharmacist Internal Medicine 10/08/22 Nehal Ann RN [address] [place] [address] Registered Nurse Family Medicine 08/20/24 10/29/24 Ania Spencer 08/20/24 11/26/24 Opal Carrasquillo Registered Nurse 10/29/24 11/26/24 Ania Spencer 12/14/24 Marta Ovalle Supervisor TumblersDrill Hand 05/25/23 documented as of this encounter
--- OUTSIDE RECORDS SUMMARY | 2024-12-25 20:57 | XMS_ITS | Encounter Summary ---
Author Organization [employer] Address [address] [facility] 7t [place] [address] Care Team Providers Care Prison Warden Name Role Phone Name, Kiel BAILEY Primary Care Provider [phone] Katlyn Rodriguez PharmD Unavailable Nehal Ann RN Unavailable Unavailable Ania Spencer Unavailable Opal Carrasquillo Unavailable [phone] Ania Spencer Unavailable Encounter Details Date Type Department Care Team (Late st Contact Info) Description 02/20/2024 Telephone [facility] MED & PEDS [address] [place], [place] [phone] Name, MD Kiel 230 [place] [address] Social History Tobacco Use Types Packs/Day Years [...] Description 01/09/2025 9:00 AM EST Medication Management [address] [address] Katlyn Rodriguez PharmD [address] [place] [address] 01/10/2025 11:30 AM EST Office Visit [address] [address] Name, MD Kiel [address] [place] [address] 02/04/2025 11:30 AM EST Clinical Support [address] [address] Opal Steiner, MARINA documented as of this [...] documented as of this encounter Care Teams Prison Warden Relationship Specialty Start Date End Date Name, MD Kiel 230 [place] [address] PCP - General Family Medicine 07/15/15 PuReid albertyssa, PharmD [address] [place] [address] Pharmacist Internal Medicine 10/08/22 Nehal Ann RN 230 [place] [address] Registered Nurse Family Medicine 08/20/24 10/29/24 Ania Spencer 08/20/24 11/26/24 Opal Carrasquillo Registered Nurse 10/29/24 11/26/24 Ania Spencer 12/14/24 Marta Ovalle Ocean Lifeguard SpecialistQuality Assurance Lead 05/25/23 documented as of this encounter
--- OUTSIDE RECORDS SUMMARY | 2024-12-25 20:57 | XMS_ITS | Encounter Summary ---
Author Organization [facility] Address [address] [facility] [address] [place] [address] Phone Care Team Providers Care Desk Officer Name Role Phone Unavailable Primary Care Provider Unavailabl e Encounter Details Date Type Department Care Team (Late st Contact Info) Description 01/04/2020 Procedure Pass [facility] [address] [place] [address] [place], [place] [phone] Social History Tobacco Use Types Packs/Day Years [...] is not the complete legal health record.[facility]
--- OUTSIDE RECORDS SUMMARY | 2024-12-25 20:57 | XMS_ITS | Encounter Summary ---
Author Organization [employer] Address [address] [place] [address] 7t [place] [address] Care Team Providers Care Applications Developer Name Role Phone Name, Kiel BAILEY Primary Care Provider [phone] Katlyn Rodriguez PharmD Unavailable Nehal Ann RN Unavailable Unavailable Ania Spencer Unavailable Opal Carrasquillo Unavailable [phone] Ania Spencer Unavailable Reason for Visit * Reason Onset Date Comments Nurse Triage 07/04/2024 Encounter Details Date Type Department Care Team (Late st Contact Info) Description 07/04/2024 Telephone [facility] MEDICINE 230 [place], [place] [phone] Name, MD Kiel 230 [place] [address] Nurse Triage Social History Tobacco Use Types [...] 07/04/2024 11:25 AM EDT Triage call with [facility] Media Buyer [place] [id number]. Pt reports headache over the entire head. No involvement with eye area. BP is 104/60. Pt has been seen by neurologist at [facility] and is being tested for possible tumor. Pt was prescribed dexamethasone byneurologist. Pt pain is moderate . Pt has been prescribed roxicodone 10mg starting 06/28/24 but, reports pharmacy wouldn't fill prescription last time contacted. Pt daughter is speaking for Pt at this time. Daughter is advised to call [facility] for prescription of roxicodone which [...] caller accepted this outcome. Contact pt at [phone] (persian) documented in this encounter Plan of Treatment Upcoming Encounters Date Type Department Care Team ([facility] st Contact Info) Description 01/09/2025 9:00 AM EST Medication Management [address] [address] Puia, Katlyn, PharmD [address] [place] [address] 01/10/2025 11:30 AM EST Office Visit [address] [phone] Name, MD Kiel [address] [place] [address] 02/04/2025 11:30 AM EST Clinical Support [address] [address] Opal Steiner, MARINA documented as of this [...] documented as of this encounter Care Teams Applications Developer Relationship Specialty Start Date End Date Name, MD Kiel 230 [place] [address] PCP - General Family Medicine 07/15/15 Katlyn Rodriguez, PharmD [address] [place] [address] Pharmacist Internal Medicine 10/08/22 Nehal Ann, MARINA [address] [place] [address] Registered Nurse Family Medicine 08/20/24 10/29/24 Ania Spencer 08/20/24 11/26/24 Opal Carrasquillo Registered Nurse 10/29/24 11/26/24 Ania Spencer 12/14/24 Marta Ovalle Space And Missile Operations SpaceliftSenior Technical Specialist 05/25/23 documented as of this encounter
--- OUTSIDE RECORDS SUMMARY | 2024-12-25 20:57 | XMS_ITS | Encounter Summary ---
Author Organization [employer] Address [address] [place] [address] 7[place] [address] Care Team Providers Care Television Receiver Analyzer Name Role Phone Name, Kiel BAILEY Primary Care Provider [phone] Katlyn Rodriguez PharmD Unavailable [phone] Nehal Ann RN Unavailable Unavailable Ania Spencer Unavailable Opal Carrasquillo Unavailable Ania Spencer Unavailable Reason for Referral * Consultation (Routine) - Closed Specialty Diagnoses / Procedures Referred By Contac t Referred To Contact Occupational Therapy Diagnoses Weakness of both lower extremities Hemiparesis of left dominant side as late effect of cerebral infarction (CMS/HCC) (HCC) Lizzie Alfaro NP 230 [place] [address] Phone: tel: fax: [facility] [address] [place] [address] Phone: tel: fax: Referral ID Status Reason Start Date Expiration Date V isits Requested Visits Authorized [id number] Closed Specialty Services Required 09/06/2024 09/06/2025 20 20 * Consultation (Routine) - Closed Specialty Diagnoses / Procedures Referred By Contac t Referred To Contact Physical Therapy Diagnoses Weakness of both lower extremities Lizzie Alfaro NP 230 [place] [address] Phone: tel: fax: [facility] [address] [place], [place] Phone: tel: fax: Referral ID Status Reason Start Date Expiration Date V isits Requested Visits Authorized [id number] Closed Specialty Services Required 09/06/2024 09/06/2025 20 20 Encounter Details Date Type Department Care Team (Late st Contact Info) Description 09/06/2024 Orders Only [facility] MEDICINE 230 [place] [address] Lizzie Alfaro NP 230 [place], [place] [phone] Weakness of both lower extremities (Primary Dx); [...] Description 01/09/2025 9:00 AM EST Medication Management [address] [address] PuiaKatlyn, PharmD [address] [place] [address] 01/10/2025 11:30 AM EST Office Visit [address] [phone] Name, MD Kiel [address] [place] [address] 02/04/2025 11:30 AM EST Clinical Support [address] [address] Opal Steiner, MARINA Scheduled Referrals Name Type [...] documented as of this encounter Care Teams Television Receiver Analyzer Relationship Specialty Start Date End Date Name, MD Kiel 230 [place] [address] PCP - General Family Medicine 07/15/15 Katlyn Rodriguez, PharmD [address] [place] [address] Pharmacist Internal Medicine 10/08/22 Nehal Ann, MARINA [address] [place] [address] Registered Nurse Family Medicine 08/20/24 10/29/24 Ania Spencer 08/20/24 11/26/24 Opal Carrasquillo Registered Nurse 10/29/24 11/26/24 Ania Spencer 12/14/24 Marta Ovalle Information Systems AnalystTumor Registrar 05/25/23 documented as of this encounter
--- OUTSIDE RECORDS SUMMARY | 2024-12-25 20:57 | XMS_ITS | Encounter Summary ---
Author Organization [employer] Address [address] [facility] 7t [place] [address] Care Team Providers Care Consulting Sme Name Role Phone Name, Kiel BAILEY Primary Care Provider [phone] Katlyn Rodriguez PharmD Unavailable Ania Spencer Unavailable Opal Carrasquillo Unavailable Ania Spencer Unavailable Encounter Details Date Type Department Care Team (Late st Contact Info) Description 11/08/2024 Results Follow-Up [facility] 230 [place] [address] Lorenzo Chavez MD 230 [place] [address] XR Hand 3+ Views Left Social History [...] Description 01/09/2025 9:00 AM EST Medication Management [address] [address] Katlyn Rodriguez PharmD [address] [place] [address] 01/10/2025 11:30 AM EST Office Visit [address] [address] Name, MD Kiel [address] [place] [address] 02/04/2025 11:30 AM EST Clinical Support [address] [address] Opal Steiner, MARINA documented as of this encounter Goals Goal Patient Goal Type Associated Problems Recent Progress Patient-Stated? Author Record your blood pressure once per day Blood Pressure No Katlyn Rodriguez PharmSusan Blood Pressure < 140/90 Blood Pressure 136/87(2024 [...] documented as of this encounter Care Teams Consulting Sme Relationship Specialty Start Date End Date Name, MD Kiel 230 [place] [address] PCP - General Family Medicine 07/15/15 PuKatlyn albert, PharmD 230 [place] [address] Pharmacist Internal Medicine 10/08/22 Ania Spencer 08/20/24 11/26/24 Opal Carrasquillo Registered Nurse 10/29/24 11/26/24 Ania Spencer 12/14/24 Marta Ovalle Plant Utilities EngineerX Ray Developer 05/25/23 documented as of this encounter
--- OUTSIDE RECORDS SUMMARY | 2024-12-25 20:57 | XMS_ITS | Encounter Summary ---
Author Organization [employer] Address [address] [place] [address] 7t [place] [address] Care Team Providers Care Regulatory Assistant Name Role Phone Name, Kiel BAILEY Primary Care Provider [phone] Katlyn Rodriguez PharmD Unavailable [phone] Nehal Ann RN Unavailable Unavailable Ania Spencer Unavailable Opal Carrasquillo Unavailable [phone] Ania Spencer Unavailable Encounter Details Date Type Department Care Team (Late Contact Info) Description 10/29/2022 Abstract [facility] MEDICINE 230 [place], [place] [phone] Name, MD Kiel 230 [place], [place] [phone] Social History Tobacco Use Types Packs/Day Years [...] Description 01/09/2025 9:00 AM EST Medication Management [address] [address] Katlyn Rodriguez PharmD [place], [place] 01/10/2025 11:30 AM EST Office Visit [address] [address] Name, MD Kiel [place] 02/04/2025 11:30 AM EST Clinical Support [address] [address] Opal Steiner, MARINA documented as of this encounter Goals Goal Patient Goal Type Associated Problems Recent Progress Patient-Stated? Author Hemoglobin A1c < 7 Result Component 7.5( 11:12 AM EDT) No Katlyn Rodriguez, PharmD [...] documented as of this encounter Care Teams Regulatory Assistant Relationship Specialty Start Date End Date Name, MD Kiel [place], [place] PCP - General Family Medicine 07/15/15 Katlyn Rodriguez, PharmD [place], [place] Pharmacist Internal Medicine 8/18/23 Nehal Ann, MARINA 230 [place] [address] Registered Nurse Family Medicine 08/20/24 10/29/24 Ania Spencer 08/20/24 11/26/24 Opal Carrasquillo Registered Nurse 10/29/24 11/26/24 Ania Spencer 12/14/24 Marta Ovalle Client Retention SpecialistProduct Development Manager 05/25/23 documented as of this encounter
--- OUTSIDE RECORDS SUMMARY | 2024-12-25 20:57 | XMS_ITS | Encounter Summary ---
Author Organization [employer] Address [address] [facility] 7t [place] [address] Care Team Providers Care Histology Aide Name Role Phone Name, Kiel BAILEY Primary Care Provider [phone] Katlyn Rodriguez PharmD Unavailable [phone] Ania Spencer Unavailable Encounter Details Date Type Department Care Team (Latest Contact Info) Description 12/24/2024 Travel Social History Tobacco Use Types Packs/Day [...] Description 01/09/2025 9:00 AM EST Medication Management [address] [address] Puia, Katlyn, PharmD [address] [place] [address] 01/10/2025 11:30 AM EST Office Visit [address] [address] Name, MD Kiel [address] [place] [address] 02/04/2025 11:30 AM EST Clinical Support [address] [address] Opal Steiner, MARINA documented as of this [...] documented as of this encounter Care Teams Histology Aide Relationship Specialty Start Date End Date Name, MD Kiel 230 [place], [place] [phone] PCP - General Family Medicine 07/15/15 Katlyn Rodriguez PharmD 230 [place] [address] Pharmacist Internal Medicine 10/08/22 Ania Spencer 12/14/24 Marta Ovalle Hostess Party Sales RepresentativeGreek Professor 05/25/23 documented as of this encounter
--- OUTSIDE RECORDS SUMMARY | 2024-12-25 20:57 | XMS_ITS | Encounter Summary ---
Author Organization [employer] Address [address] [facility] 7t [place] [address] Care Team Providers Care Preprint Analyst Name Role Phone Name, Kiel BAILEY Primary Care Provider [phone] Katlyn Rodriguez PharmD Unavailable Nehal Ann RN Unavailable Unavailable Ania Spencer Unavailable Opal Carrasquillo Unavailable [phone] Ania Spencer Unavailable Reason for Visit * Reason Comments Med Refill Encounter Details Date Type Department Care Team (Late st Contact Info) Description 06/08/2024 Refill [facility] & PEDS [address] [place], [place] [phone] Name, MD Kiel 230 [place] [address] Chronic pain syndrome Social History Tobacco Use [...] the past 12 months, has t he [employer], gas, oil or water company threatened to [...] Description 01/09/2025 9:00 AM EST Medication Management [address] [address] Katlyn Rodriguez PharmD [address] [place] [address] 01/10/2025 11:30 AM EST Office Visit [address] [address] Name, MD Kiel [address] [place] [address] 02/04/2025 11:30 AM EST Clinical Support [address] [address] Opal Steiner, RN documented as of this [...] documented as of this encounter Care Teams Preprint Analyst Relationship Specialty Start Date End Date Name, MD Kiel [address] [place] [address] PCP - General Family Medicine 07/15/15 Puia, Katlyn, PharmD [address] [place] [address] Pharmacist Internal Medicine 10/08/22 Nehal Ann, MARINA [address] [place] [address] Registered Nurse Family Medicine 08/20/24 10/29/24 Ania Spencer 08/20/24 11/26/24 Opal Carrasquillo Registered Nurse 10/29/24 11/26/24 Ania Spencer 12/14/24 Marta Ovalle Test Case DeveloperBoard Attendant 05/25/23 documented as of this encounter
--- OUTSIDE RECORDS SUMMARY | 2024-12-25 20:57 | XMS_ITS | Clinical Summary ---
Author Organization [employer] Address [address] [place] [address] [address] [place] [address] Care Team Providers Care Flag Maker Name Role Phone Name, Kiel BAILEY Primary Care Provider [phone] Katlyn Rodriguez PharmD Unavailable [phone] Ania Spencer Unavailable Allergies Active Allergy Reactions [...] pressure daily 1 kit 05/26/19 24 Active Alcohol Swabs (Alcohol Prep) 70 % pads USE DIRECTED TWICE DAILY 100 each 5 01/31/20 24 Active OXcarbazepine (Trileptal) 150 MG tablet Take 150 mg by mouth before breakfast. Has additional RX for 300 mg, 1.5 tabs at bedtime Active Icosapent Ethyl (Vascepa) 1 g capsuleIndicati ons:Type 2 diabetes mellitus with other specified complication, with long-term current use of insulin ([facility]),Hypertrig lyceridemia Take 2 capsules (2 g) by [...] Do not crush or chew. 90 tablet 03/23/19 25 Active OXcarbazepine (Trileptal) 300 MG [...] complication, with long-term current use of insulin ([facility]) Inject 15 mg under the skin 1 (one) time per week. 2 mL 06/08/19 25 Active ezetimibe (Zetia) 10 MG tabletIndicatio ns:Type 2 diabetes mellitus with other specified complication, with long-term current use of insulin ([facility]) TAKE 1 TABLET BY MOUTH EVERY MORNING 30 tablet 07/24/19 25 Active cetirizine (ZyrTEC) 10 MG tablet TAKE 1 TABLET BY MOUTH EVERY MORNING 90 tablet 1 07/25/19 25 Active rosuvastatin (Crestor) 40 MG tabletIndicatio ns:Type 2 diabetes mellitus with other specified complication, with long-term current use of insulin ([facility]),History of stroke,Tobacco use disorder,Hypert riglyceridemia Take 1 tablet (40 mg) by mouth Once per day. 90 tablet 1 08/17/19 25 Active gabapentin (Neurontin) 800 MG tablet Take 1 tablet (800 mg) by mouth 3 times daily. 90 tablet 08/21/19 25 026 Active aspirin 81 MG chewable tabletIndicatio ns:Type 2 diabetes mellitus with other specified complication, with long-term current use of insulin ([facility]) Chew 1 tablet (81 mg) in the [...] 30 tablet 09/13/19 25 Active TechLite Pen Drury 32G X 4 MM miscIndications :Type 2 diabetes mellitus with other specified complication ([facility]) USE DIRECTED FOUR TIMES DAILY 100 each 09/29/19 25 Active Blood Glucose Monitoring Suppl (FreeStyle Lite) deviceIndicatio ns:Type 2 diabetes mellitus with other specified complication, with long-term current use of insulin ([facility]) Inject 1 each under the skin 2 times daily. Use to test blood sugar as directed 1 each 10/03/19 25 Active glucose blood (FREESTYLE LITE) test stripIndication s:Type 2 diabetes mellitus with other specified complication, with long-term current use of insulin ([facility]) Use to test blood sugar 2 times daily 50 strip 10/03/19 25 Active TRUEplus Lancets 33G miscIndications :Type 2 diabetes mellitus with other specified complication, with long-term current use of insulin ([facility]) Use to test blood sugar twice daily [...] long-term current use of insulin (HCC) Inject 46 Units under the skin at [...] 2024. 84 tablet 12/15/19 25 025 Active acetaminophen (Tylenol 8 Hour) 650 MG ER tablet Take 1 tablet (650 mg) by mouth every 8 (eight) hours if needed for moderate pain or headaches. Do not crush, chew, or split. 50 tablet 1 12/25/19 25 Active acetaminophen (Tylenol 8 Hour) 650 MG ER tablet TAKE 1 TABLET BY MOUTH EVERY 8 HOURS NEEDED FOR MILD PAIN DO NOT BREAK, CRUSH, DISSOLVE OR CHEW 90 tablet 1 01/16/20 24 025 Discontinued(R eorder (will not trigger notification [...] IN THE EVENING 180 tablet 08/23/19 25 025 Discontinued insulin glargine (Lantus SoloStar) [...] before November 16, 2024. 84 tablet 11/17/19 025 Discontinued Active Problems Problem Noted Date [...] eddi as late effect of cerebrovascular accident ([facility]) 11/01/2024 Assessment & Plan (11/01/2024 4:03 PM [...] to the hospital Case was presented to [facility] emergency room Hemiparesis of left dominant side ([facility]) 07/23 Assessment & Plan (08/17/2024 1:36 PM EDT): Patient will benefit from PT evaluation and after evaluation at the hospital to be referred to acute PT center Cerebrovascular accident (CVA) ([facility]) 025 History of stroke 07/30/2024 Cerebellar mass 06/28/2024 Chronic, continuous use of opioids 11/29/2023 Overview (11/29/2023): Dx: OA knee Tx: oxycodone 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 last signed: 05/03/23 Chronic pain syndrome 05/03/2023 [...] PM EST): I presented the case to [facility] emergency room, patient will go by [...] tolerate CPAP On nocturnal oxygen Follows with [facility] pulmonary (Bajua) Cocaine abuse, episodic use (CMS/HCC) [...] 01/29/2022 06/28/2024 Fall on hard surface 01/29/2022 05 025 Assessment & Plan (04/06/2023 5:50 PM [...] for Paxlovid sent to the pharmacy -Utilized [facility] interaction body design checker to assess interactions with current med [...] 06/28/2024 Pancytopenia 04/18/2018 06/28/2024 Simple chronic bronchitis ([facility]) 04/18/2018 06/28/2024 Overview (07/14/2022): Severe and worse in the spring. Last hospitalazion in May and 3 ER visits Hospital 08/02 Acute exacerbation of chroni c obstructive airways disease with asthma ([facility]) 01/02/2018 Seizure ([facility]) 11/18/2017 06/28/2024 Anterior knee pain 10/20/2016 Mesenteric [...] Encounters Date Type Department Care Team Description 12/25/2024 Orders Only GENERIC EXTERNAL DATA DEPARTMENT Provider, Generic External Data 12/25/[address] [address] Kiel Shaffer MD FYI 12/24/2024 10:40 AM EST [facility] [address] [address] Victorino Graves MD Acute pain of left shoulder (Primary Dx); Injury of left shoulder, subsequent encounter; Left-sided weakness 12/24/[address] [address] Kiel Shaffer MD Results (Pt requesting wheelchair , pt stated she's falling too much. ) 12/24/2024 Travel 12/14/[address] [address] Elsie Hall, DENITRATOR Follow-up 12/14/2024 Patient Outreach [facility] [address] [place], [place] [phone] Kiel Shaffer MD Care Coordination (CP Care Coordination Chart Review) 12/14/2024 Patient Outreach [facility] [address] [place] [address] Kiel Shfafer MD Care Coordination (Formerly [facility] ED Follow up) 12/14/2024 Patient Outreach [address] [address] Kiel Shaffer MD 12/13/2024 10:40 AM EDT Office Visit [facility] [address] [address] Lorenzo Chavez MD Acute pain of left shoulder (Primary Dx); Acute pain of right knee; Nondisplaced fracture of right radial styloid process, subsequent encounter for closed fracture with delayed healing 12/13/2024 Travel 12/13/2024 Refill [facility] [address] [facility] [place] [address] NameKiel MD Cerebellar mass; Chronic intractable headache, unspecified headache type 12/10/2024 Refill [facility] [address] [place] [address] Kiel Shaffer MD 12/07/[address] [address] NameKiel MD Cerebellar mass; Chronic intractable headache, unspecified headache type 11/30/2024 Orders Only [address] [address] Kiel Shaffer MD 11/27/2024 Travel 11/26/2024 Travel 11/26/2024 Patient Outreach [address] [address] Kiel Shaffer MD Care Management (C3 TC #3-case closed) 11/15/2024 11:30 AM EDT Clinical Support [address] [address] Opal Steiner RN Long-term current use of opiate analgesic (Primary Dx) 11/15/[address] [address] Opal Steiner RN Cerebellar mass; Chronic intractable headache, unspecified headache type; Long-term current use of opiate analgesic 11/15/2024 Travel 11/12/[address] [address] Barbara Martinez MA 11/12/[address] [address] Barbara Martinez MA DecemberS 11/08/2024 Results Follow-Up [facility] [address] [place] [address] Lorenzo Chavez MD XR Hand 3+ Views Left 11/08/2024 Travel 11/06/2024 5:00 PM EDT [facility] [address] [address] Lorenzo Chavez MD Swelling of left hand (Primary Dx) 11/06/2024 Travel 11/02/2024 Results Follow-Up [address] [address] Sarita Baker MD XR Shoulder 2+ Views Left 11/01/2024 1:00 PM EDT Office Visit [address] [address] Sarita Baker MD Acute bilateral low back pain without sciatica; Acute pain of left shoulder; Bilateral hand pain; Hemiparesis affecting left side as late effect of cerebrovascular accident ([facility]/HCC) 11/01/2024 Travel 11/01/[address] [address] Kiel Shaffer MD Nurse Triage 10/29/[address] [address] Katlyn Rodriguez, PharmD 10/29/2024 Travel 10/18/[address] [address] Kiel Shaffer MD Psychophysiological insomnia 10/18/[address] [address] Lizzie Alfaro NP Cerebellar mass; Chronic intractable headache, unspecified headache type 10/17/2024 Patient Outreach [facility] [address] [place] [address] Kiel Shaffer MD Care Coordination (C3 f/u call- LVM) 10/16/2024 Patient Outreach [facility] [address] [place] [address] Kiel Shaffer MD 10/09/2024 2:00 PM EDT [facility] [address] [address] Sarita Baker MD Essential hypertension (Primary Dx); Nondisplaced fracture of right radial styloid process, initial encounter for closed fracture 10/09/2024 Travel 10/09/2024 Telephone [facility] [address] Kiel Shaffer MD ER Follow-up; Nurse Triage 10/09/2024 Telephone [facility] [place] [address] Kiel Shaffer MD No Show 10/06/2024 Orders Only [facility] External Provider, [facility] 10/05/2024 Telephone [facility] [address] Kiel Shaffer MD Referral 10/04/2024 Patient Outreach [address] [address] Kiel Shaffer MD Care Management ([facility] TC #2-lvm) 10/02/2024 10:40 AM EDT Office Visit [facility] [address] [place] [address] Victorino Graves MD Acute otitis externa of left ear, unspecified type (Primary Dx) 10/02/2024 Telephone [facility] [place] [address] NameKiel MD 10/02/2024 Travel 09/28/2024 [place]ill [place] [address] Kiel Shaffer MD Type 2 diabetes mellitus with other specified complication ([facility]) from Last 3 Months Immunizations Immunization Administration Dates Next Due HepB-CpG 11/05/2022,10/08/2022 Influenza Injectable Quadriv alant Preservative Free IIV4 MDCK 11/05/2022 Influenza Whole 11/06/2010 Influenza injectable quadriv alent IIV4 with preservative 01/09/2016 Influenza injectable quadriv alent preservative free 11/13/2021,01/21/2021,01/07/2020,12/13,01/30/2018 Influenza, IIV3, injectable 02/03/2016,1 ,12/16/2013,02/23,11/02/2012,10/26/2011,01/13/2011 ,11/03/2010,11/21/2009 Influenza, seasonal, injecta ble, preservative free 11/27/2024,11/29/2023 Novel [id number], all formulations 05/31/2009 Pneumococcal Conjugate PCV 20 [...] Description 01/09/2025 9:00 AM EST Medication Management [address] [address] Katlyn Rodriguez, PharmD [address] [place] [address] 01/10/2025 11:30 AM EST Office Visit [address] [address] Name, MD Kiel [address] [place] [address] 02/04/2025 11:30 AM EST Clinical Support [address] [address] Opal Steiner, RN Health Maintenance Due Date [...] Screening 11/26/2025 11/26/2024 Lipid Panel 11/30/2025 11/30/2024, 042 09/2024, 10/25/2023, Additional history exists Tobacco Screening 12/24/2025 12/24/2024 Colonoscopy 07/02/2027 07/01/2022 Colorectal Cancer Screening 07/02/2027 [...] Procedure Name Priority Date/Time Associated Diagnosis Comments COMPREHENSIVE METABOLIC PANEL Routine 12/25/2024 5:51 PM EST CBC WITH AUTO DIFFERENTIAL Routine 12/25/2024 5:51 PM EST XR KNEE 3 VIEWS RIGHT Routine 12/13/2024 [...] with long-term current use of insulin (CMS/HCC) BI MAMMOGRAM SCREENING TOMOSYNTHESIS BILATERAL Routine 06/03/2023 [...] Recently Relevant to Health Maintenance Results * CBC auto differential (12/25/2024 5:51 PM EST) White Blood Count 6.7 4.8 - 10.8 X10*3/uL [facility] Red Blood Count 4.86 4.20 - 5.50 X10*6/uL [facility] Hemoglobin 13.3 12.0 - 16.0 g/dl [facility] Hematocrit 40.7 37.0 - 47.0 % [facility] Mean Corpuscular Volume 83.7 80.0 - 98.0 fL [facility] Mean Corpuscular Hemoglobin 27.4 27.0 - 33.0 pg [facility] Mean Corpuscular HGB Conc 32.7 31.0 - 35.0 g/dl [facility] Red Cell Distribution Width 12.9 11.0 - 16.0 % [facility] Platelet Count 170 160 - 400 X10*3/uL [facility] Mean Platelet Volume 12.3 9.4 - 12.3 fL [facility] Neutrophils Percent Auto 56.0 45 - 73 % [facility] Imm Gran Pct Auto 0.3 0.0 - 0.4 % [facility] Lymphocytes Percent Auto 34.1 20 - 40 % [facility] Monocytes Percent Auto 7.1 2 - 11 % [facility] Eosinophils Percent Auto 1.6 0 - 4 % [facility] Basophils Percent Auto 0.9 0 - 2 % [facility] NRBC Pct Auto 0.0 0.0 - 0.2 /100WBC [facility] Neutrophils Absolute Auto 3.8 2.0 - 8.3 x10*3/uL [facility] Imm Gran Abs Auto 0.02 0.00 - 0.03 X10*3/uL [facility] Lymphocytes Absolute Auto 2.3 1.2 - 4.9 X10*3/uL [facility] Monocytes Absolute Auto 0.5 0.1 - 1.2 X10*3/uL [facility] Eosinophils Absolute Auto 0.1 0.0 - 0.4 X10*3/uL [facility] Basophils Absolute Auto 0.1 0.0 - 0.2 X10*3/uL [facility] NRBC Abs Auto 0.000 0.0 - 0.012 X10*3/uL [facility] 12/25/2024 5:51 PM EST 12/25/2024 6:01 PM EST us Generic External Data Provider LAB BLOOD ORDERAB LES Final Result [facility] [address], [place] [phone] * (ABNORMAL) Comprehensive Metabolic Panel (12/25/2024 5:51 PM EST) Sodium 138 135 - 145 mmol/L [facility] Potassium 4.0 3.3 - 5.1 mmol/L [facility] Chloride 104 96 - 108 mmol/L [facility] Carbon Dioxide 27 22 - 29 mmol/L [facility] Anion Gap 11(L) 12 - 20 [facility] Urea Nitrogen (BUN) 15 9 - 16 mg/dL [facility] Creatinine, Serum 0.49(L) 0.5 - 1.4 mg/dL [facility] Creatinine Clr Calc Pharmacy 142.7 [facility] Comment:Provided height and weight: 160.02 cm,104.326 kg.eGFR (calculated from the MDRD study equation) and eCrCl(calculated from the Cockcroft-Gault equation) are based ondifferent parameters and may not yield comparable results.If eCrCl result is absurd, please check patient'sheight/weight. Estimated Glomerular Filt Rate >60 [facility] Comment:Chronic Kidney Disea se: Estimated GFR < 60 mL/min/1.02m3Rqmnru Kidney Disease: Estimated GFR < 15 mL/min/1.73m2 Glucose 138(H) 60 - 115 mg/dL [facility] Calcium 9.3 8.4 - 10.2 mg/dL [facility] Bilirubin, Total 0.3 0.0 - 1.0 mg/dL [facility] Aspartate Amino Transferase 12 5 - 31 U/L [facility] Alanine Aminotransferase 22 0 - 31 U/L [facility] Total Protein 6.8 6.5 - 8.0 g/dL [facility] Albumin Level 4.3 3.5 - 5.0 g/dL [facility] Alkaline Phosphatase 77 39 - 117 U/L [facility] 12/25/2024 5:51 PM EST 12/25/2024 6:01 PM EST us Generic External Data Provider LAB BLOOD ORDERAB LES Final Result Performing Organization Address City/State/[facility] de Phone Number [facility] [address] [place] [phone] * XR Knee 3 Views Right (12/13/2024 12:39 PM EDT) Anatomical Region Laterality Modality Lower Extremities, Knee Right Radiogra phic Imaging 12/13/2024 12:3 9 PM EDT Narrative 12/13/2024 12:58 PM EDT [place] [address] XRay Report Signed Patient: Sarita Puga MR#: [id number] 92 : 1965 Acct:[id number] Age/Sex: 59 / F ADM Date: 12/13/24 Loc: .ED Attending Dr: Ordering Physician: Aurora Beltrán Date of Service: 12/13/24 Procedure(s): XR knee RT 3V Accession Number(s): [id number] cc: Name,Kiel BAILEY; Aurora Beltrán Reason for Exam: pain, fall [...] Allison Chavez MD 12/13/2024 12:55 PM EDT Dictated By: Allison Chavez MD Signed By: <Electronically signed by Allison Chavez MD in OV> 12/13/24 1255 DD/ 1239 TD/TT: 12/13/24 1246 Cartoonist Special Effects: SALINAS Procedure Note Donotuseinterpreter, Image - 12/13/[address] [address] XRay Report Signed Patient: Sarita Puga MMR#: [id number] 92 : 1965Acct:[id number] Age/Sex: 59 / FADM Date: 12/13/24 Loc: HO.ED Attending Dr: Ordering Physician: Aurora Beltrán Date of Service: 12/13/24 Procedure(s): XR knee RT 3V Accession Number(s): [id number] cc: Name,Kiel BAILEY; Aurora Beltrán Reason for Exam: pain, fall [...] Allison Chavez MD 12/13/2024 12:55 PM EDT Dictated By: Allison Chavez MD Signed By: <Electronically signed by Allison Chavez MD in OV> 12/13/24 1255 DD/ 1239 TD/TT: 12/13/24 1246 Cartoonist Special Effects: SALINAS [facility] External Provider IMG XR PROCEDURES Edited Result - Final * XR Lumbar Spine 2-3 Views (12/13/2024 12:38 PM EDT) Only the most recent of2 resultswithin the time period is included. Anatomical Region Laterality Modality Spine, L-spine Radiographic Diana ging 12/13/2024 12:3 8 PM EDT Narrative 12/13/2024 12:56 PM EDT [address] [address] XRay Report Signed Patient: Sarita Puga MR#: [id number] 92 : 1965 Acct:[id number] Age/Sex: 59 / F ADM Date: 12/13/24 Loc: HO.ED Attending Dr: Ordering Physician: Lacy Saucedo MD Date of Service: 12/13/24 Procedure(s): XR lumbar spine 2-3V Accession Number(s): [id number] cc: Lacy Saucedo MD; Name,Kiel BAILEY Reason [...] Allison Chavez MD 12/13/2024 12:53 PM EDT Dictated By: Allison Chavez MD Signed By: <Electronically signed by Allison Chavez MD in OV> 12/13/24 1253 DD/ 1238 TD/TT: 12/13/24 1246 Cartoonist Special Effects: SALINAS Procedure Note Donotuseinterpreter, Image - 12/13/[address] [address] XRay Report Signed Patient: Sarita Puga MMR#: [id number] 92 : 1965Acct:[id number] Age/Sex: 59 / FADM Date: 12/13/24 Loc: HO.ED Attending Dr: Ordering Physician: Lacy Saucedo MD Date of Service: 12/13/24 Procedure(s): XR lumbar spine 2-3V Accession Number(s): [id number] cc: Lacy Saucedo MD; Name,Kiel BAILEY Reason [...] Allison Chavez MD 12/13/2024 12:53 PM EDT Dictated By: Allison Chavez MD Signed By: <Electronically signed by Allison Chavez MD in OV> 12/13/24 1253 DD/ 1238 TD/TT: 12/13/24 1246 Cartoonist Special Effects: SALINAS [facility] External Provider IMG XR PROCEDURES Edited Result - Final * XR Shoulder 2+ Views Left (12/13/2024 12:34 PM EDT) Only the most recent of2 resultswithin the time period is included. Anatomical Region Laterality Modality Upper Extremities, Shoulder Left Radi ographic Imaging 12/13/2024 12:3 4 PM EDT Narrative 12/13/2024 12:53 PM EDT [place] [address] XRay Report Signed Patient: Sarita Puga MR#: [id number] 92 : 1965 Acct:[id number] Age/Sex: 59 / F ADM Date: 12/13/24 Loc: HO.ED Attending Dr: Ordering Physician: Aurora Beltrán Date of Service: 12/13/24 Procedure(s): XR shoulder LT min 2V Accession Number(s): [id number] cc: Kiel Shaffer MD; Aurora Beltrán Reason [...] Allison Chavez MD 12/13/2024 12:49 PM EDT RP Dictated By: Allison Chavez MD Signed By: <Electronically signed by Allison Chavez MD in OV> 12/13/24 1249 DD/ 1234 TD/TT: 12/13/24 1246 Cartoonist Special Effects: SALINAS Procedure Note Donotuseinterpreter, Image - 12/13/2024 [place] [address] XRay Report Signed Patient: Sarita Puga [facility]#: [id number] 92 : 1965Acct:[id number] Age/Sex: 59 / FADM Date: 12/13/24 Loc: .ED Attending Dr: Ordering Physician: Aurora Beltrán Date of Service: 12/13/24 Procedure(s): XR shoulder LT min 2V Accession Number(s): [id number] cc: Kiel Shaffer MD; Aurora Beltrán Reason [...] Allison Chavez MD 12/13/2024 12:49 PM EDT RP Dictated By: Allison Chavez MD Signed By: <Electronically signed by Allison Chavez MD in OV> 12/13/24 1249 DD/ 1234 TD/TT: 12/13/24 1246 Cartoonist Special Effects: SALINSA us [facility] External Provider IMG XR PROCEDURES Edited Result - Final * MR Wrist w/o Contrast Right (12/06/2024 8:31 PM EDT) Anatomical Region Laterality Modality Upper Extremities, Wrist Right Magneti c Resonance 12/06/2024 8:31 PM EDT Narrative 12/06/2024 8:33 PM EDT [address] [address] Magnetic Resonance Report Signed Patient: Sarita Puga MR#: [id number] 92 : 1965 Acct:[id number] Age/Sex: 59 / F ADM Date: 12/06/24 Loc: HO.MRI Attending Dr: Jose SEGURA Ordering Physician: Jose Hernandez Date of Service: 12/06/24 Procedure(s): MR wrist RT wo con Accession Number(s): [id number] cc: Jose Hernandez; Name,Kiel BAILEY Reason for [...] in OV> 12/06/242032 DD/ 30 TD/TT: 12/06/242030 Cartoonist Special Effects: Procedure Note Donotuseinterpreter, Image - 12/06/2024 [place] [address] Magnetic Resonance Report Signed Patient: Sarita Puga [facility]#: [id number] 92 : 1965Acct:[id number] Age/Sex: 59 / FADM Date: 12/06/24 Loc: HO.MRI Attending Dr: Jose SEGURA Ordering Physician: Jose Hernandez Date of Service: 12/06/24 Procedure(s): MR wrist RT wo con Accession Number(s): [id number] cc: Jose Hernandez; Name,Kiel BAILEY Reason for [...] in OV> 12/06/242032 DD/ 30 TD/TT: 12/06/242030 Cartoonist Special Effects: us [facility] External Provider IMG MRI PROCEDURES Final Result * Hepatic Function Panel (11/30/2024 9:56 AM EDT) Bilirubin, Total 0.5 0.0 - 1.0 mg/dL [facility] Bilirubin, Direct 0.2 0.0 - 0.5 mg/dL [facility] Aspartate Amino Transferase 23 5 - 31 U/L [facility] Comment:Slight Hemolysis.Int erpret result with caution. Alanine Aminotransferase 21 0 - 31 U/L [facility] Total Protein 6.9 6.5 - 8.0 g/dL [facility] Albumin Level 4.4 3.5 - 5.0 g/dL [facility] Alkaline Phosphatase 75 39 - 117 U/L [facility] 11/30/2024 9:56 AM EDT 11/30/2024 11:32 AM EDT us Kiel Shaffer MD LAB BLOOD ORDERABLES Final Resul t [facility] [address] [place] [phone] * (ABNORMAL) Lipid Panel, Standard (11/30/2024 9:56 AM EDT) Triglycerides 122 <150 mg/dL [facility] Comment:Desirable Triglyceri de: less than 150 mg/dLBorderline High Triglyceride 150-199 mg/dLHigh Triglyceride: 200-499 mg/dLVery High Triglyceride: greater than or equal to 5OO mg/dL Cholesterol 151 <200 mg/dL [facility] Comment:Desirable Cholestero l: less than 200 mg/dLBorderline High Cholesterol: 200-239 mg/dLHigh Cholesterol: greater than 239 mg/dL LDL Cholesterol Calculated 91 <100 mg/dL [facility] Comment:Desirable LDL: less than 100 mg/dLNear Optimal/Above Optimal LDL: 110- 129 mg/dLBorderline High LDL: 130-159 mg/dLHigh LDL: 160-189 mg/dLVery High LDL: greater than or equal to 190 mg/dL HDL Cholesterol 36(L) >40 mg/dL [facility] Comment:Desirable HDL: great er than 40 mg/dL Note: This HDL assay may give artificially low results in patients with liver disease. 11/30/2024 9:56 AM EDT 11/30/2024 11:32 AM EDT us Kiel Shaffer MD LAB BLOOD ORDERABLES Final Resul t [facility] [address] [place] [phone] * POCT KEELEY-14 Urine Drug Screen [...] procedure / Unknown 11/15/2024 11:43 AM EDT Opal George RN - 11/15/2024 11:43 AM EDT UTOX cup Lot#[id number] Exp. 11/27/25 Internal Pass Control us Kiel Shaffer MD POINT OF CARE TEST ENTER/EDIT OR DERABLES Final Result * XR Hand 3+ Views Left (11/07/2024 12:00 PM EDT) Anatomical Region Laterality Modality Upper Extremities, Hand Left Radiogra phic Imaging 11/07/2024 12:0 0 PM EDT Narrative 11/07/2024 12:20 PM EDT [address] [address] XRay Report Signed Patient: Sarita Puga MR#: [id number] 92 : 1965 Acct:[id number] Age/Sex: 59 / F ADM Date: 11/07/24 Loc: [facility] Attending Dr: Lorenzo Chavez MD Ordering Physician: Lorenzo Chavez MD Date of Service: 11/07/24 Procedure(s): XR hand LT min 3V Accession Number(s): [id number] cc: Lorenzo Chavez MD Reason for Exam: [...] 11/07/24 1217 DD/ 1200 TD/TT: 11/07/24 1202 Cartoonist Special Effects: Procedure Note Donotuseinterpreter, Image - 11/07/2024 [facility] [address] [place] [address] XRay Report Signed Patient: Sarita Puga MMR#: [id number] 92 : 1965Acct:[id number] Age/Sex: 59 / FADM Date: 11/07/24 Loc: [facility] Attending Dr: Lorenzo Chavez MD Ordering Physician: Lorenzo Chavez MD Date of Service: 11/07/24 Procedure(s): XR hand LT min 3V Accession Number(s): [id number] cc: Lorenzo Chavez MD Reason for Exam: [...] 11/07/24 1217 DD/ 1200 TD/TT: 11/07/24 1202 Cartoonist Special Effects: Lorenzo Chavez MD IMG XR PROCEDURES Edited Result - Final * XR Hand 3+ Views Right (10/06/2024 5:17 PM EDT) Anatomical Region Laterality Modality Upper Extremities, Hand Right Radiogra phic Imaging 10/06/2024 5:17 PM EDT Narrative 10/06/2024 5:18 PM EDT [place] [address] XRay Report Signed Patient: Sarita Puga MR#: [id number] 92 : 1965 Acct:[id number] Age/Sex: 59 / F ADM Date: 10/06/24 Loc: .ED Attending Dr: Ordering Physician: Justina Perez NP Date of Service: 10/06/24 Procedure(s): XR hand RT min 3V Accession Number(s): [id number] cc: Kiel Shaffer MD; Justina Perez NP [...] in OV> 10/06/241717 DD/ 16 TD/TT: 10/06/241716 Cartoonist Special Effects: Procedure Note Donotuseinterpreter, Image - 10/06/2024 [place] [address] XRay Report Signed Patient: Sarita Puga MMR#: [id number] 92 : 1965Acct:[id number] Age/Sex: 59 / FADM Date: 10/06/24 Loc: HO.ED Attending Dr: Ordering Physician: Justina Perez NP Date of Service: 10/06/24 Procedure(s): XR hand RT min 3V Accession Number(s): [id number] cc: Name,Kiel BAILEY; Justina Perez NP CLINICAL [...] in OV> 10/06/241717 DD/ 16 TD/TT: 10/06/241716 Cartoonist Special Effects: us [facility] External Provider IMG XR PROCEDURES Edited Result - Final * XR Wrist 3+ Views Right (10/06/2024 5:12 PM EDT) Anatomical Region Laterality Modality Upper Extremities, Wrist Right Radiogr aphic Imaging 10/06/2024 5:12 PM EDT Narrative 10/06/2024 5:14 PM EDT [address] [address] XRay Report Signed Patient: Sarita Puga MR#: [id number] 92 : 1965 Acct:[id number] Age/Sex: 59 / F ADM Date: 10/06/24 Loc: HO.ED Attending Dr: Ordering Physician: Justina Perez NP Date of Service: 10/06/24 Procedure(s): XR wrist RT min 3V Accession Number(s): [id number] cc: Name,Kiel BAILEY; Justina Perez NP CLINICAL [...] in OV> 10/06/241712 DD/ 11 TD/TT: 10/06/241711 Cartoonist Special Effects: Procedure Note Donotuseinterpreter, Image - 10/06/[address] [place] [address] XRay Report Signed Patient: Sarita Puga MMR#: [id number] 92 : 1965Acct:[id number] Age/Sex: 59 / FADM Date: 10/06/24 Loc: HO.ED Attending Dr: Ordering Physician: Justina Perez NP Date of Service: 10/06/24 Procedure(s): XR wrist RT min 3V Accession Number(s): [id number] cc: Kiel Shaffer MD; Justina Perez NP [...] in OV> 10/06/241712 DD/ 11 TD/TT: 10/06/241711 Cartoonist Special Effects: [facility] External Provider IMG XR PROCEDURES Edited [...] AM EDT Narrative 06/30/2023 10:24 PM EDT [address] [place] [address] Mammography Report Signed Patient: Sarita Puga MR#: [id number] 92 : 1965 Acct:[id number] Age/Sex: 57 / F ADM Date: 06/03/23 Loc: MAMMO Attending Dr: Kiel Shaffer MD Ordering Physician: Kiel Shaffer MD Results: 1Negative Date of Service: 06/03/23 Follow Up: 1 Year From Orig inal Mammogram Procedure(s): MM tomosynthesis screening BI Accession Number(s): [id number] cc: Kiel Shaffer MD EXAMINATION: MM SCREENING [...] MD in OV> 06/30/230 DD/ 0845 TD/TT: Cartoonist Special Effects: Procedure Note Donotuseinterpreter, Image - 06/30/[address] [place] [address] Mammography Report Signed Patient: Sarita Puga MMR#: [id number] 92 : 1965Acct:[id number] Age/Sex: 57 / FADM Date: 06/03/23 Loc: MAMMO Attending Dr: Kiel Shaffer MD Ordering Physician: Kiel Shaffer MDResults: 1Negative Date of Service: 06/03/23Follow Up: 1 Year From Orig ina Mammogram Procedure(s): MM tomosynthesis screening BI Accession Number(s): [id number] cc: Kiel Shaffer MD EXAMINATION: MM SCREENING [...] in OV> 06/30/23 2220 DD/ 0845 TD/TT: Cartoonist Special Effects: Kiel Shaffer MD IM BI PROCEDURES Edited Result - Final * Albumin, Random Urine W/Creatinine (05/26/2023 8:27 AM EDT) Creatinine, Urine 185.88 mg/dL [facility] Microalbumin Urine 23.0 mg/L [facility] Microalbum Creatinine Ratio Ur 12.3 <30 ug/mg cr [facility] Comment:Albumin/Creatinine R atio Reference Ranges: Normal: < 30 ug/mg creatinine Microalbuminuria: 30 - 300 ug/mg creatinineClinical Albuminuria: > 300 ug/mg creatinine Urine (Urine, Random) 05/26/2023 8:27 AM EDT 05/26/2023 11:19 AM EDT Kiel Shaffer MD LAB URINE ORDERABLES Final Resul t [facility] [address] [place] [phone] * Colonoscopy (07/01/2022 4:37 PM EDT) Colonoscopy Normal Normal Narrative Em[place] Devine - 07/01/2022 4:37 PM EDT Recommended 5 year follow up ([facility]) Historical Provider HEALTH MAINTENANCE Final Result * Diabetes Eye Exam (05/26/2022) Eye Exam Normal Normal us Kiel Shaffer MD HEALTH MAINTENANCE Final Result from Last 3 Months or Most Recently Relevant to Health Maintenance Insurance [employer] [address] [place], [place] [id number] [place], [place] [address]HEALTH C[address] [place], [place] [id number] [place] [address]HEALTH C3 [employer] [address] [place] [address] [address] [place] [address] [address] [place] [address] [address] [place] Care Teams Flag Maker Relationship Specialty Start Date End Date Name, MD Kiel [address] [place] [address] PCP - General Family Medicine 07/15/15 Katlyn Rodriguez PharmD [address] [place] [address] Pharmacist Internal Medicine 10/08/22 Ania Spencer 12/14/24 Marta Ovalle Screening SpecialistOven Dauber 05/25/23
--- OUTSIDE RECORDS SUMMARY | 2024-12-25 20:57 | XMS_ITS | Clinical Summary ---
Author Organization [facility] Address [address] [place] [address] Phone Care Team Providers Care Donor Center Technician Name Role Phone Name, Kiel BAILEY Primary Care Provider [phone] Allergies Active Allergy Reactions Criticality Noted Date [...] Active medical supply, miscellaneous (MISCELLANEOUS MEDICAL SUPPLY [facility]) ULTICARE SHORT PEN NEEDLES 31G X 8 MM USE FOUR TIMES DAILY TO INJECT insulin WITH A MEAL AND AT BEDTIME 06/23/19 16 Active blood sugar diagnostic (FreeStyle Lite Strips) test strip USE TO TEST FINGER STICK BLOOD SUGAR TWICE DAILY DIRECTED 06/23/19 16 Active medical supply, miscellaneous (MISCELLANEOUS MEDICAL SUPPLY MISC) [facility]. DEVICES (COMMODE BEDSIDE) MIS 1 Device by Does not apply route as needed (voiding/bm). 12/11/19 15 Active ASPIRIN ORAL Take 1 Tab by mouth daily. 11/28/19 15 Active lancets (Sure Comfort Lancets) 30 gauge [facility] USE TO TEST FINGER STICK BLOOD SUGAR [...] Problem Noted Date Diagnosed Date COPD exacerbation ([facility] V24, [facility] V28) Abnormal nuclear stress test 11/06/2014 Rib fracture 12/24/2013 Overview (12/12/2023): Non displaced, probable froacture on the right ninth and tenth Abdominal pain 08/15/2013 Lipoma of abdominal wall 11/02/2011 Visual field defect 03/29/2011 Cocaine abuse, episodic use ([facility] V24, [facility] V28) 06/17/2010 Low back pain radiating to left leg 10/08/2009 Overview (12/12/2023): The patient follows with [facility] and is treated with injections to the LS. Asthmatic bronchitis , chronic ([facility] V24, [facility] V28) 07/07/2009 Overview (12/12/2023): Severe and worse in the spring. Last hospitalazion in May and 3 ER visits Hospital 08/02 Known medical problems 06/05/2009 Tobacco use disorder 06/05/2009 Hypertriglyceridemia 06/05/2009 Morbid obesity ([facility] V24, [facility] V28) 2009 Overview (12/12/2023): BMI [...] HYSTERECTOMY WITH BSO; COMMENT: for bleeding, [facility] Medical History Medical History Date Comments Type II or unspecified type diabetes mellitus with unspecified complication, not stated as uncontrolled DX:Type II or unspecified t ype diabetes mellitus with unspecified complication, not stated as uncontrolled Unspecified essential hypertension DX:Unspecified essential hypertension Tobacco abuse DX:Tobacco abuse RAD (reactive airway disease) DX :RAD (reactive airway disease) Morbid obesity ([facility] V24, [facility] V28) DX:Morbid obesity ([facility]) Asthmatic bronchitis , chron ic ([facility] V24, [facility] V28) 07/07/2009 DX:Asthmatic bronchitis , ch ronic ([facility]) Hypertriglyceridemia 06/05/2009 DX:Hypertri glyceridemia Rib fracture 12/24/2013 DX:Rib fracture Family History Medical History Relation Name Comments Blindness Brother 1 Breast cancer Maternal Grandmother Cataracts Maternal Grandmother Blindness Mother Glaucoma Neg Hx Macular degeneration Neg Hx Strabismus Neg Hx Relation Name Status Comments Brother 1 Brother 2 PA Brother 3 Alive 6 brothers are diabetic [...] AM EST Office Visit Orthopedic Surgery - [address] [address] Wesley Garcia, DPPhani [address] [place] [address] Health Maintenance Due Date Last Done Comments [...] 3:36 AM [facility] CO2 23 21 - [...] AM EST 02/06/2024 3:13 AM EST Result [facility] Cindy SEGURA LAB BLOOD ORDERABLES Final R esult [facility] [address] [place] [address], * (ABNORMAL) Hemoglobin A1c (11/20/2014) Pathologist [facility] Hemoglobin A1C 7.5(A) 4.0 - 6.0 % Blood Venous blood specimen / Unknown Result [facility] Historical Provider LAB BLOOD ORDERABLES Alis l Result * Urine Albumin Creatinine Ratio (05/10/2014) Pathologist [facility] Urine Albumin Creatinine Ratio abstracted Result [facility] Historical Provider HEALTH MAINTENANCE Final Result * (ABNORMAL) Lipid panel (05/10/2014) Pathologist [facility] LDL/HDL Ratio 4 0 - 4 Triglycerides 360(A) 0 - 150 mg/dL Cholesterol 179 0 - 200 mg/dL HDL 42 >=40 mg/dL LDL Cholesterol 65 0 - 100 mg/dL Blood Venous blood specimen / Unknown Result [facility] Historical Provider LAB BLOOD ORDERABLES Alis l Result * Hepatitis C Screening (10/10/2013) Pathologist [facility] Hepatitis C Screening abstracted us Historical Provider HEALTH MAINTENANCE Final Result from Last 3 Months or Most Recently Relevant to Health Maintenance Insurance [place] Advance Directives * Full Code - Default [...] currently active code status orders. Care Teams Donor Center Technician Relationship Specialty Start Date End Date Name, MD Kiel [address] [place], [place] PCP - General Internal Medicine 08/28/15
[2024-12-25 21:31] VITALS: BP 124/70; PULSE 88; RESP 16; O2SAT 98
[2024-12-25 22:15] VITALS: BP 124/70; PULSE 88; RESP 16; TEMP 36.6; O2SAT 98
== END 2024-12-25 22:17 | disposition home or self-care (01) ==
PROVIDERS: Registered Nurse Emergency; Emergency Provider Emergency Medicine; PCP Internal Medicine Geriatric Medicine
DX: M25.512 Pain in left shoulder (principal); I10 Essential (primary) hypertension; E11.9 Type 2 diabetes mellitus without complications; J44.9 Chronic obstructive pulmonary disease, unspecified; I69.354 Hemiplegia and hemiparesis following cerebral infarction affecting left non-dominant side; Z88.0 Allergy status to penicillin; Z88.8 Allergy status to other drugs, medicaments and biological substances
CPT/HCPCS: 36415; 73030; 80053; 85025; 99284

== ENCOUNTER → 2024-12-25 21:06 | Outpatient (BNV) | payer MEDICAID, SELFPAY | PROVIDERS: Emergency Provider Emergency Medicine; PCP Internal Medicine Geriatric Medicine; Visit Provider Radiology Diagnostic Radiology | DX: M25.512 Pain in left shoulder (principal) | CPT/HCPCS: 73030 ==

== ENCOUNTER 2025-01-01 12:49 | Outpatient (AMB) | payer MEDICAID, SELFPAY ==
--- OUTSIDE RECORDS SUMMARY | 2023-11-24 08:53 | XMS_ITS | Encounter Summary ---
Author Organization [facility] Address [address] [place] [address] Care Team Providers Care Beader Name Role Phone Name, Kiel BAILEY Primary Care Provider [phone] Encounter Details Date Type Department Care Team (Late st Contact Info) Description 11/24/2023 9:53 AM EDT Hospital Encounter TH HISTORIC ENCOUNTERS EASTERN CONVERSION ONLY Geoffrey-Art Vitale MD [address] [place] [phone] Social History Tobacco Use Types Packs/Day [...] 02/05/2024 6:47 AM Rosy New RN * [place] Suicide Severity Rating Scale (Screener/Recent Self-Report) Question [...] 2:17 PM Encounter Date: 11/24/2023 Status: Signed Computer System Technician: Art Davis MD (Physician) CHIEF COMPLAINT: Chief Complaint Patient presents with ? Follow-up Diffuse large B-cell lymphoma Stage III Completed 6 cycles of R-CHOP in July 23, 2018 IDENTIFIER:Sarita Puga is a 58 y.o. female. HPI: The patient returns for follow up of Large B-cell lymphoma. Here with her daughter , who is yoruba to canadian speech language pathologist travel Patient reports that she has been doing [...] accompanied by her daughter and girlfriend. As Libyan to Nepali speech language pathologist travel assisted with the discussion. She had a [...] AM EST Office Visit Orthopedic Surgery - [place] [address] [phone] Wesley Garcia DPM [address] [phone] documented as of this encounter Procedures Procedure [...] documented as of this encounter Care Teams Beader Relationship Specialty Start Date End Date Name, MD Kiel 4 [place], [place] PCP - General Internal Medicine 08/28/15 documented as of this encounter
--- OUTSIDE RECORDS SUMMARY | 2023-11-24 09:30 | XMS_ITS | Encounter Summary ---
Author Organization [facility] Address [address] [place] [phone] Care Team Providers Care Commercial Real Estate Paralegal Name Role Phone Name, Kiel BAILEY Primary Care Provider [phone] Encounter Details Date Type Department Care Team (Late st Contact Info) Description 11/24/2023 10:30 AM EDT Hospital Encounter TH HISTORIC ENCOUNTERS EASTERN CONVERSION ONLY Geoffrey-Art Vitale MD [address] [place] [phone] Social History Tobacco Use Types Packs/Day [...] 02/05/2024 6:47 AM Rosy New RN * [place] Suicide Severity Rating Scale (Screener/Recent Self-Report) Question [...] AM EST Office Visit Orthopedic Surgery - [place] [address] [phone] Wesley Garcia DPM [address] [phone] documented as of this encounter Visit Diagnoses Not on filedocumented in this encounter Additional Health Concerns Infection Onset Date Last Indicated Resolved Time Respiratory Rule-Out 02/05/2024 02/05/2024 024 8:09 AM EST COVID-19 Rule-Out 02/05/2024 02/05/2024 02/05/2024 8:09 AM EST documented as of this encounter Care Teams Commercial Real Estate Paralegal Relationship Specialty Start Date End Date Name, MD Kiel 4 [place], [place] PCP - General Internal Medicine 08/28/15 documented as of this encounter
--- NOTE | 2025-01-01 13:00 | A.OFFVIS_ITS ---
Vital Signs 01/01/25 13:05 Height 5 ft 3 in Weight 230 lb BMI 40.7 Intake Visit Reasons: OV - Right Wrist MRI review Intake Note: Sarita is a 59 year old male who presents today as a MRI review of the right wrist, 12/06/24. At today's visit she states ongoing pain in her wrist, no changes since last visit. Sharepoint Application Developer Required: Yes Sharepoint Application Developer Services: Sharepoint Application Developer Present Sharepoint Application Developer Name: Felix [id number] Allergies penicillin G (Penicillin G) Allergy (Mild, Verified 01/01/25 13:05) SWELLING barium sulfate (ORAL CONTRAST) Allergy (Unknown, Verified 01/01/25 13:05) HIVES cephalexin Allergy (Unknown, Verified 01/01/25 13:05) Unknown HPI HPI OV - Right Wrist MRI review: Details: Sarita is a 59 year old right hand Slovak speaking Diabetic dominant woman who returns for an MRI review of her right distal radius fracture & snuffbox tenderness, S/P fall, DOI: 10/06/24. She speaks some Czech and is here with her daughter Her chief complaint today is of pain & swelling in her left hand & wrist, and shoulder along with stiffness. She says her left wrist & arm are very stiff and she has not been moving it at all as she finds it painful enough to bring her to tears. She has had trouble with her left shoulder and arm since her stroke in March 2024. In regards to her right wrist, her pain is better and mostly resolved, along with her stiffness. She continues to take Oxycodone for general pain relief in her bones, being ordered by her PCP Her daughter says she had a stroke back in 03/2024 and she has been having constant pain in her entire left side . She says her current PT orders have been stopped while she is recovering from her right wrist fracture. apparently they want her upper body strengthened more before she can begin working on lower body strengthening, and ambulation. Thus, she appears to be mostly confined to a wheelchair at this time. She is a smoker, and was listed as smoking 2 packs daily. She has a wheelchair and a walker, and is currently in a wheelchair today. [facility] Medical History (Updated 01/01/25 @ 13:44 by Bc Gonzalez) COPD (chronic obstructive pulmonary disease) Diabetes mellitus Brain lesion Reactive airway disease Coronary artery disease Insulin dependent type 2 diabetes mellitus Exposure to rabies Lymphoma Restrictive lung disease secondary to obesity Nocturnal hypoxemia DRE (obstructive sleep apnea) Cough Nicotine dependence, cigarettes, uncomplicated Allergic rhinitis Morbid obesity Hyperlipidemia GERD (gastroesophageal reflux disease) Tubular adenoma Chronic idiopathic constipation IBS (irritable bowel syndrome) Back pain Depression Surgical History History of total right knee replacement (TKR) History of appendectomy (~1978) History of (~1986) History of hysterectomy (~1995) History of lithotripsy (~2018) History of carpal tunnel surgery of right wrist (~2020) History of colonoscopy History of esophagogastroduodenoscopy (EGD) Family History Mother Diabetes Heart muscle disorder caused by another medical condition Father Diabetes Epilepsy Sister No problems noted. Sister No problems noted. Sister No problems noted. Sister No problems noted. Sister No problems noted. Brother No problems noted. Brother No problems noted. Brother No problems noted. Brother No problems noted. Brother No problems noted. Brother No problems noted. Daughter No problems noted. Daughter No problems noted. Son No problems noted. Son No problems noted. Son No problems noted. Social History Household Members: Other Household Members Other:: grandson Housing: Apartment Are you a primary foster care case manager to a significant other at home: No Do you presently have visiting nurse or other home services: No Alcohol intake: current Alcohol intake frequency: does not drink Patient Tobacco Use Status: Current everyday Tobacco user Tobacco use type: Cigarette Cigarette Packs Per Day: 2 Cigarettes Per Day: 40.0 Years Smoked: (onset 13yo, x 42yrs, max 2ppd, now 1/2ppd - 30PYH) e-Cigarette/Vaping Use: Never Used Second Hand Smoke Exposure: No Substance Use Type: Marijuana service: No Current occupational status: disabled Current occupation: rt handed Review of Systems Const All systems reviewed & are unremarkable except as noted in HPI and below Physical Exam Vital Signs: BMI result Body Mass Index 40.7 Const General: no acute distress and alert Orientation/consciousness: patient oriented x3 Neuro General: patient oriented x3 Extrem Other: Evaluation of Bilateral Upper Extremity: The patient is alert, oriented, and in no acute distress Patient is in a wheelchair today. ROM: Right: She can make a fist and extend all her digits without pain She can hold her fingers extended against resistance, and flex her fingers against resistance without pain Full wrist ROM without pain Full elbow ROM without pain She can raise her hand above her head without difficulty. Negative Tarsha test on the right, though she is mildly tender over the point of the right radial styloid. Left: Her left hand is held pronated against her belly, with her elbow in flexion She reports pain in her left hand, wrist, and shoulder, without elbow pain She can extend her fingers and partially flex towards a fist, limited by pain & stiffness She can extend her elbow without pain She cannot forward flex or abduct her shoulder due to pain ER of shoulder causes pain Right wrist MRI: Findings: Fracture of the styloid process of the distal radius. Bone marrow edema in the carpal bones, most prominent in the scaphoid and trapezoid, however also involving the trapezium, lunate, capitate and hamate. The musculature is normal in signal and bulk. Unremarkable vessels. Mild negative ulnar variance. The distal radioulnar joint is intact. There is no carpal instability. Small distal radial ulnar joint effusion. Trace carpal joint effusion. There is fluid in the pre styloid recess. There is increased signal in the scapholunate and lunotriquetral without discontinuity. There is increased signal in the triangular fibrocartilage complex with suspected of discontinuity of the triangular ligament. Normal extensor compartment. Enlarged median nerve measuring 0.7 x 0.5 cm. There is mild increased signal and flexor digitorum profundus and superficialis without tear. Otherwise normal carpal tunnel, flexor retinaculum, flexor tendons and Guyon canal. Preserved first carpometacarpal, scaphotrapezotrapezoidal and pisiform-triquetral joints. Impression: Fracture of the styloid process of the distal radius. Bone marrow edema in the carpal bones, posttraumatic versus secondary to altered biomechanics. Mild negative ulnar variance. Small distal radial ulnar joint effusion, trace carpal joint effusion and fluid in the prestyloid recess, posttraumatic. Signal abnormality in the scapholunate and lunotriquetral ligaments may indicate sprain. Suspect tear of the triangular ligament. Enlarged median nerve which could be posttraumatic. Mild tendinopathy of flexor digitorum profundus and superficialis This document has been electronically signed by: Tejal Castanon MD on 12/06/2024 Radiographs: 3 views of the left hand & wrist were taken and viewed by me today in clinic> They show significant osteopenia but no fractures or dislocations. Psych Appearance: grossly normal Affect: normal affect Attitude: cooperative Assessment & Plan Assessment & Plan (1) Nondisplaced fracture of styloid process of right radius: Code(s): S52.514A - Nondisplaced fracture of right radial styloid process, initial encounter for closed fracture Category: Medical (2) Stiffness of left wrist joint: Code(s): M25.632 - Stiffness of left wrist, not elsewhere classified Category: Medical (3) Acute CVA (cerebrovascular accident): Code(s): I63.9 - Cerebral infarction, unspecified Category: Medical (4) Nicotine dependence, cigarettes, uncomplicated: Comment: (current smoker - onset 13yo, x 42yrs, max 2ppd, now 1ppd Code(s): F17.210 - Nicotine dependence, cigarettes, uncomplicated Category: Medical (5) Diabetes mellitus: Code(s): E11.9 - Type 2 diabetes mellitus without complications Category: Medical (6) Stiffness of left hand joint: Code(s): M25.642 - Stiffness of left hand, not elsewhere classified Category: Medical Plan Assessment & Plan: 1. Right radial styloid fracture, healing and becoming less painful 2. Tenderness of anatomical snuffbox, negative for fracture on MRI S/P fall, DOI: 10/06/24 I educated her about this condition and reviewed her MRI with her No evidence of scaphoid fracture seen on radiographs or MRI She will discontinue her splint at this time She is cleared to return to physical therapy with her RUE at this time. No limitations placed on her RUE She will follow up prn 3. Left hand & wrist stiffness Secondary to disuse following CVA in 03/2024 I educated her about the importance of working on ROM exercises & using her hand for daily activities She will work on gentle ROM exercises at home I explained the importance of therapy and being active out of her wheelchair. She needs to meet the requirements for PT for her BUE before she can proceed with PT for her BLE I ordered OT hand therapy to work on stretching, strengthening, and normalizing function for the left hand and wrist.. 4. Left shoulder pain She will make an appointment to be seen by our general orthopedic staff to evaluate her left shoulder pain. She should have pre clinic radiographs of the left shoulder. Please note that greater than 60 minutes was spent with this patient going over the history, evaluating the patient and radiographs, formulating possible treatment options, discussing them with the patient, and documenting the visit. Scribed for Bhavana Sarkar MD by Bc Gonzalez, medical device sales representative, on 01/01/25 at 1:25 PM, EST. Orders: Orders XR hand LT min 3V Today M79.642 - Pain in left hand Coding Level of Care Code Est Pt Level 5 (01867) Diagnoses Nondisplaced fracture of styloid process of right radius S52.514A Stiffness of left wrist joint M25.632 Acute CVA (cerebrovascular accident) I63.9 Nicotine dependence, cigarettes, uncomplicated F17.210 Diabetes mellitus E11.9 Stiffness of left hand joint M25.642
[2025-01-01 13:05] VITALS: BMI 40.7
--- OUTSIDE RECORDS SUMMARY | 2025-01-01 14:33 | XMS_ITS | Encounter Summary ---
Author Organization [employer] Address [address] [place] [address] 7t [place] [address] Care Team Providers Care Passenger Service Supervisor Name Role Phone Name, Kiel BAILEY Primary Care Provider [phone] Katlyn Rodriguez PharmD Unavailable [phone] Nehal Ann RN Unavailable Unavailable Ania Spencer Unavailable Opal Carrasquillo Unavailable [phone] Ania Spencer Unavailable Reason for Visit * Reason Comments Med Refill Encounter Details Date Type Department Care Team (Late st Contact Info) Description 07/16/[address] [facility] [address] [place], [place] [phone] Name, MD Kiel 230 [place], [place] [phone] Chronic pain syndrome Social History Tobacco Use [...] Description 01/09/2025 9:00 AM EST Medication Management [address] [phone] Katlyn Rodriguez PharmD [address] [place] [address] 01/10/2025 11:30 AM EST Office Visit [address] [phone] Kiel Shaffer MD [address] [place] [address] 02/04/2025 11:30 AM EST Clinical Support [address] [phone] Opal Steiner, MARINA documented as of this encounter Visit Diagnoses Diagnosis Chronic pain syndrome documented in this encounter Additional Health Concerns Assessment Noted Time PHQ-9 Depression Total Score: 7 07/15/19 23 2:39 PM EDT documented as of this encounter Care Teams Passenger Service Supervisor Relationship Specialty Start Date End Date Kiel Shaffer MD [address] [place] [address] PCP - General Family Medicine 07/15/15 Katlyn Rodriguez, PharmD [address] [place] [address] Pharmacist Internal Medicine 10/08/22 Nehal Ann, MARINA [address] [place] [address] Registered Nurse Family Medicine 08/20/24 10/29/24 Ania Spencer 08/20/24 11/26/24 Opal Carrasquillo Registered Nurse 10/29/24 11/26/24 Ania Spencer 12/14/24 12/26/24 Marta Ovalle Transportation Job TitlesMachine Sole Leveler 05/25/23 documented as of this encounter
--- OUTSIDE RECORDS SUMMARY | 2025-01-01 14:33 | XMS_ITS | Encounter Summary ---
Author Organization [email or web address] Address [address] [place] [address] 7t [place] [address] Care Team Providers Care Production Graphic Designer Name Role Phone Name, Kiel BAILEY Primary Care Provider [phone] Katlyn Rodrgiuez PharmD Unavailable [phone] Nehal Ann RN Unavailable Unavailable Ania Spencer Unavailable Opal Carrasquillo Unavailable Ania Spencer Unavailable Reason for Visit * Reason Onset Date Comments Medication Problem 08/30/2023 Encounter Details Date Type Department Care Team (Late st Contact Info) Description 08/30/2023 Telephone [facility] 230 [place], [place] [phone] Name, MD Kiel 230 [place], [place] [phone] Medication Problem Social History Tobacco Use Types [...] Description 01/09/2025 9:00 AM EST Medication Management [address] [address] Katlyn Rodriguez, AngieD [address] [place] [address] 01/10/2025 11:30 AM EST Office Visit [address] [address] Name, MD Kiel [address] [place] [address] 02/04/2025 11:30 AM EST Clinical Support [address] [address] Obdulia, Opal, RN documented as of this [...] documented as of this encounter Care Teams Production Graphic Designer Relationship Specialty Start Date End Date Name, MD Kiel [address] [place] [address] PCP - General Family Medicine 07/15/15 Puia, Katlyn, PharmD [address] [place] [address] Pharmacist Internal Medicine 10/08/22 Nehal Ann, MARINA [address] [place] [address] Registered Nurse Family Medicine 08/20/24 10/29/24 Ania Spencer 08/20/24 11/26/24 pOal Carrasquillo Registered Nurse 10/29/24 11/26/24 Ania Spencer 12/14/24 12/26/24 Marta Ovalle Garage LaborerInteractive Web Developer 05/25/23 documented as of this encounter
--- OUTSIDE RECORDS SUMMARY | 2025-01-01 14:33 | XMS_ITS | Encounter Summary ---
Author Organization [employer] Address [address] [place] [address] 7t [place] [address] Care Team Providers Care Pharmaceutical Physician Name Role Phone Name, Kiel BAILEY Primary Care Provider [phone] Katlyn Rodriguez PharmD Unavailable Nehal Ann RN Unavailable Unavailable Ania Spencer Unavailable Opal Carrasquillo Unavailable [phone] Ania Spencer Unavailable Reason for Visit * Reason Comments Med Refill Encounter Details Date Type Department Care Team (Late st Contact Info) Description 06/28/2022 Refill [facility] 230 [place], [place] [phone] Name, MD Kiel 230 [place], [place] [phone] Chronic pain syndrome Social History Tobacco Use [...] 01/09/2025 9:00 AM EST Medication Management [address] [address] Katlyn Rodriguez PharmD [address] [place] [address] 01/10/2025 11:30 AM EST Office Visit [address] [address] Name, MD Kiel [address] [place] [address] 02/04/2025 11:30 AM EST Clinical Support [address] [address] Opal Steiner RN documented as of this encounter Visit Diagnoses Diagnosis Chronic pain syndrome documented in this encounter Care Teams Pharmaceutical Physician Relationship Specialty Start Date End Date Name, MD Kiel [address] [place] [address] PCP - General Family Medicine 07/15/15 Katlyn Rodriguez PharmD [address] [place] [address] Pharmacist Internal Medicine 10/08/22 Nehal Ann, MARINA [address] [place] [address] Registered Nurse Family Medicine 08/20/24 10/29/24 Ania Spencer 08/20/24 11/26/24 Opal Carrasquillo Registered Nurse 10/29/24 11/26/24 Ania Spencer 12/14/24 12/26/24 Marta Ovalle Outreach ClinicianInsurance Underwriter Sales 05/25/23 documented as of this encounter
--- OUTSIDE RECORDS SUMMARY | 2025-01-01 14:33 | XMS_ITS | Encounter Summary ---
Author Organization [employer] Address [address] [place] [address] 7t [place] [address] Care Team Providers Care Nc Machinist Name Role Phone Name, Kiel BAILEY Primary Care Provider [phone] Katlyn Rodriguez PharmD Unavailable [phone] Nehal Ann RN Unavailable Unavailable Ania Spencer Unavailable Opal Carrasquillo Unavailable Ania Spencer Unavailable Reason for Visit * Reason Comments Med Refill Encounter Details Date Type Department Care Team (Late st Contact Info) Description 04/25/2022 Refill [facility] 230 [place], [place] [phone] Name, MD Kiel 230 [place], [place] [phone] Diabetes mellitus type 2 in obese (CMS/HCC) [...] Description 01/09/2025 9:00 AM EST Medication Management [address] [address] Katlyn Rodriguez PharmD [address] [place] [address] 01/10/2025 11:30 AM EST Office Visit [address] [address] Name, MD Kiel [address] [place] [address] 02/04/2025 11:30 AM EST Clinical Support [address] [address] Opal Steiner, MARINA documented as of this encounter Visit Diagnoses Diagnosis Diabetes mellitus type 2 in obese- Primary Type II or unspecified type diabetes mellitus without mention of complication, not stated as uncontrolled documented in this encounter Care Teams Nc Machinist Relationship Specialty Start Date End Date Name, MD Kiel [address] [place] [address] PCP - General Family Medicine 07/15/15 Katlyn Rodriguez, AngieD [address] [place] [address] Pharmacist Internal Medicine 10/08/22 Nehal Ann, MARINA [address] [place] [address] Registered Nurse Family Medicine 08/20/24 10/29/24 Ania Spencer 08/20/24 11/26/24 Opal Cararsquillo Registered Nurse 10/29/24 11/26/24 Ania Spencer 12/14/24 12/26/24 Marta Ovalle Pneumatic Drum SanderTerrapin Fisher 05/25/23 documented as of this encounter
--- OUTSIDE RECORDS SUMMARY | 2025-01-01 14:33 | XMS_ITS | Encounter Summary ---
Author Organization [employer] Address [address] [place] [address] 7t [place] [address] Care Team Providers Care Librarian Helper Name Role Phone Name, Kiel BAILEY Primary Care Provider [phone] Katlyn Rodriguez PharmD Unavailable Nehal Ann RN Unavailable Unavailable Ania Spencer Unavailable Opal Carrasquillo Unavailable Ania Spencer Unavailable Reason for Visit * Reason Onset Date Comments Appointment Request 02/29/2024 Encounter Details Date Type Department Care Team (Late st Contact Info) Description 02/29/2024 Telephone [facility] 230 [place], [place] [phone] Name, MD Kiel 230 [place], [place] [phone] Appointment Request Social History Tobacco Use Types [...] different date and time. Pt does speak lithuanian so you will need an material stress tester. documented in this encounter Plan of Treatment Upcoming Encounters Date Type Department Care Team (Late st Contact Info) Description 01/09/2025 9:00 AM EST Medication Management [facility] [address] [place] [address] Katlyn Rodriguez, AngieD 230 [place] [address] 01/10/2025 11:30 AM EST Office Visit [facility] [address] [place] [address] Name, MD Kiel 230 [place] [address] 02/04/2025 11:30 AM EST Clinical Support [facility] [address] [place] [address] Opal Steiner, RN documented as of this [...] documented as of this encounter Care Teams Librarian Helper Relationship Specialty Start Date End Date Name, MD Kiel [address] [place] [address] PCP - General Family Medicine 07/15/15 Puia, Katlyn, PharmD [address] [place] [address] Pharmacist Internal Medicine 10/08/22 Nehal Ann, MARNIA [address] [place] [address] Registered Nurse Family Medicine 08/20/24 10/29/24 Ania Spencer 08/20/24 11/26/24 Opal Carrasquillo Registered Nurse 10/29/24 11/26/24 Ania Spencer 12/14/24 12/26/24 Marta Ovalle Workers Compensation Claims ExaminerIt Programmer Analyst 05/25/23 documented as of this encounter
--- OUTSIDE RECORDS SUMMARY | 2025-01-01 14:33 | XMS_ITS | Encounter Summary ---
Author Organization [employer] Address [address] [facility] 7t [place] [address] Care Team Providers Care Canvas Baster Jumpbasting Name Role Phone Name, Kiel BAILEY Primary Care Provider [phone] Katlyn Rodriguez PharmD Unavailable [phone] Ania Spencer Unavailable Reason for Visit * Reason Comments Med Refill Encounter Details Date Type Department Care Team ([facility] st Contact Info) Description 12/07/2024 Refill [facility] 230 [place] [address] Name, MD Kiel 230 [place] [address] Cerebellar mass; Chronic intractable headache, unspecified headache [...] 01/09/2025 9:00 AM EST Medication Management [address] [address] Katlyn Rodriguez PharmD [address] [place] [address] 01/10/2025 11:30 AM EST Office Visit [address] [address] Name, MD Kiel [address] [place] [address] 02/04/2025 11:30 AM EST Clinical Support [address] [address] Opal Steiner RN documented as of this encounter Goals Goal Patient Goal Type Associated Problems Recent Progress Patient-Stated? Author Record your blood pressure once per day Blood Pressure No Puia, Katlyn, PharmD Blood Pressure < 140/90 Blood Pressure 136/87(2024 11:09 AM EST) No Puia Katlyn, PharmD Hemoglobin A1c < 7 Result Component 7.5( 5 11:12 AM EDT) No Katlyn Rodriguez PharmSusan Record your blood sugar as directed Result Component No Katlyn Rodriguez PharmSusan documented as of this encounter Visit Diagnoses Diagnosis Cerebellar mass Chronic intractable headache, unspecified headache type documented in this encounter Additional Health Concerns Assessment Noted Time PHQ-9 Depression Total Score: 7 09/05/19 25 11:46 AM EDT documented as of this encounter Care Teams Canvas Baster Jumpbasting Relationship Specialty Start Date End Date Name, MD Kiel [address] [place] [address] PCP - General Family Medicine 07/15/15 Katlyn Rodriguez PharmD [address] [place] [address] Pharmacist Internal Medicine 10/08/22 Ania Spencer 12/14/24 12/26/24 Marta Ovalle Batter OutSales And Marketing Assistant 05/25/23 documented as of this encounter
--- OUTSIDE RECORDS SUMMARY | 2025-01-01 14:33 | XMS_ITS | Encounter Summary ---
Author Organization [employer] Address [address] [place] [address] 7t [place] [address] Care Team Providers Care Pay Clerk Name Role Phone Name, Kiel BAILEY Primary Care Provider [phone] Katlyn Rodriguez PharmD Unavailable Nehal Ann RN Unavailable Unavailable Ania Spencer Unavailable Opal Carrasquillo Unavailable [phone] Ania Spencer Unavailable Encounter Details Date Type Department Care Team (Late st Contact Info) Description 07/01/2022 Abstract [facility] 230 [place], [place] [phone] Name, MD Kiel 230 [place], [place] [phone] Social History Tobacco Use Types Packs/Day Years [...] 01/09/2025 9:00 AM EST Medication Management [address] [phone] Katlyn Rodriguez PharmD [address] [place] [address] 01/10/2025 11:30 AM EST Office Visit [address] [phone] Name, MD Kiel [address] [place] [address] 02/04/2025 11:30 AM EST Clinical Support [address] [phone] Opal Steiner RN documented as of this encounter Procedures Procedure Name Priority Date/Time Associated Diagnosis Comments COLONOSCOPY Routine 07/01/2022 4:37 PM EDT documented in this encounter Results * Colonoscopy (07/01/2022 4:37 PM EDT) Colonoscopy Normal Normal Narrative Emely Devine - 07/01/2022 4:37 PM EDT Recommended 5 year follow up ([facility]) Historical Provider HEALTH MAINTENANCE Final Result documented in this encounter Visit Diagnoses Not on filedocumented in this encounter Care Teams Pay Clerk Relationship Specialty Start Date End Date Name, MD Kiel [address] [place] [address] PCP - General Family Medicine 07/15/15 Katlyn Rodriguez PharmD [address] [place] [address] Pharmacist Internal Medicine 10/08/22 Nehal Ann RN [address] [place] [address] Registered Nurse Family Medicine 08/20/24 10/29/24 Ania Spencer 08/20/24 11/26/24 Opal Carrasquillo Registered Nurse 10/29/24 11/26/24 Ania Spencer 12/14/24 12/26/24 Marta Ovalle Legal ArchivistPaperhanger Contractor 05/25/23 documented as of this encounter
--- OUTSIDE RECORDS SUMMARY | 2025-01-01 14:33 | XMS_ITS | Encounter Summary ---
Author Organization [employer] Address [address] [place] [address] 7t [place] [address] Care Team Providers Care Textile Designer Name Role Phone Name, Kiel BAILEY Primary Care Provider [phone] Katlyn Rodriguez PharmD Unavailable Nehal Ann RN Unavailable Unavailable Ania Spencer Unavailable Opal Carrasquillo Unavailable Ania Spencer Unavailable Reason for Visit * Reason Comments Med Refill Encounter Details Date Type Department Care Team (Late st Contact Info) Description 06/27/2023 Refill [facility] 230 [place], [place] [phone] Katlyn Rodriguez, PharmD 230 [place], [place] [phone] Tobacco use disorder Social History Tobacco Use [...] Description 01/09/2025 9:00 AM EST Medication Management [address] [address] Katlyn Rodriguez, PharmD [address] [place] [address] 01/10/2025 11:30 AM EST Office Visit [address] [address] Name, MD Kiel [address] [place] [address] 02/04/2025 11:30 AM EST Clinical Support [address] [address] Opal Steiner RN documented as of this [...] documented as of this encounter Care Teams Textile Designer Relationship Specialty Start Date End Date Name, MD Kiel 230 [place] [address] PCP - General Family Medicine 07/15/15 Puia, Katlyn, PharmD 230 [place] [address] Pharmacist Internal Medicine 10/08/22 Nehal Ann RN 230 [place] [address] Registered Nurse Family Medicine 08/20/24 10/29/24 Ania Spencer 08/20/24 11/26/24 Opal Carrasquillo Registered Nurse 10/29/24 11/26/24 Ania Spencer 12/14/24 12/26/24 Marta Ovalle Dictaphone TypistHand Fretted Instrument Maker 05/25/23 documented as of this encounter
--- OUTSIDE RECORDS SUMMARY | 2025-01-01 14:33 | XMS_ITS | Encounter Summary ---
Author Organization [employer] Address [address] [place] [address] 7t [place] [address] Care Team Providers Care Paramedic Rn Name Role Phone Name, Kiel BAILEY Primary Care Provider [phone] Katlyn Rodriguez PharmD Unavailable [phone] Nehal Ann RN Unavailable Unavailable Ania Spencer Unavailable Opal Carrasquillo Unavailable Ania Spencer Unavailable Reason for Visit * Reason Onset Date Comments Reschedule 08/01/2023 Encounter Details Date Type Department Care Team (Late st Contact Info) Description 08/01/2023 Telephone [facility] 230 [place], [place] [phone] Name, MD Kiel 230 [place], [place] [phone] Reschedule Social History Tobacco Use Types Packs/Day [...] 08/01/2023 9:55 AM EDT Triage call with [employer] [place] [id number] . Pt reports Covid + test this [...] 08/01/2023 9:04 AM EDT Patient cancelled todays PET CARE TECHNICIAN RV appt today. Pt's PET CARE TECHNICIAN appt has been rescheduled for chronic pain [...] AM EDT Tc from pt requesting r/s PET CARE TECHNICIAN appt, stated is sick and suspect is COVID documented in this encounter Plan of Treatment Upcoming Encounters Date Type Department Care Team (Late st Contact Info) Description 01/09/2025 9:00 AM EST Medication Management [facility] [address] [place] [address] Katlyn Rodriguez, PharmD 230 [place] [address] 01/10/2025 11:30 AM EST Office Visit [facility] [address] [place] [address] Name, [place] [address] 02/04/2025 11:30 AM EST Clinical Support [address] [address] Opal Steiner, MAIRNA documented as of this encounter Goals Goal [...] documented as of this encounter Care Teams Paramedic Rn Relationship Specialty Start Date End Date Name, [place] [address] PCP - General Family Medicine 07/15/15 Puia, Katlyn, PharmD [address] [place] [address] Pharmacist Internal Medicine 10/08/22 Nehal Ann RN [address] [place] [address] Registered Nurse Family Medicine 08/20/24 10/29/24 Ania Spencer 08/20/24 11/26/24 Opal Carrasquillo Registered Nurse 10/29/24 11/26/24 Ania Spencer 12/14/24 12/26/24 Marta Ovalle Food Safety ManagerTax Accountant 05/25/23 documented as of this encounter
--- OUTSIDE RECORDS SUMMARY | 2025-01-01 14:33 | XMS_ITS | Encounter Summary ---
Author Organization [employer] Address [address] [place] [address] 7t [place] [address] Care Team Providers Care Cath Lab Radiology Technician Name Role Phone Name, Kiel BAILEY Primary Care Provider [phone] Katlyn Rodriguez PharmD Unavailable Nehal Ann RN Unavailable Unavailable Ania Spencer Unavailable Opal Carrasquillo Unavailable Ania Spencer Unavailable Reason for Visit * Reason Comments Med Refill Encounter Details Date Type Department Care Team (Late st Contact Info) Description 02/10/2022 Refill [facility] [address] [place] [address] Name, MD Kiel 230 [place] [address] Chronic pain syndrome (Primary Dx) Social History [...] Description 01/09/2025 9:00 AM EST Medication Management [address] [phone] Katlyn Rodriguez PharmD [address] [place] [address] 01/10/2025 11:30 AM EST Office Visit [address] [phone] Name, MD Kiel [address] [place] [address] 02/04/2025 11:30 AM EST Clinical Support [address] [address] Opal Steiner, MARINA documented as of this encounter Visit Diagnoses Diagnosis Chronic pain syndrome- Primary documented in this encounter Care Teams Cath Lab Radiology Technician Relationship Specialty Start Date End Date Name, MD Kiel [address] [place] [address] PCP - General Family Medicine 07/15/15 Katlyn Rodriguez PharmD [address] [place] [address] Pharmacist Internal Medicine 10/08/22 Nehal Ann, MARINA [address] [place] [address] Registered Nurse Family Medicine 08/20/24 10/29/24 Ania Spencer 08/20/24 11/26/24 Opal Carrasquillo Registered Nurse 10/29/24 11/26/24 Ania Spencer 12/14/24 12/26/24 Marta Ovalle Putty MixerPublic Records Researcher 05/25/23 documented as of this encounter
--- OUTSIDE RECORDS SUMMARY | 2025-01-01 14:33 | XMS_ITS | Encounter Summary ---
Author Organization [employer] Address [address] [facility] 7t [place] [address] Care Team Providers Care Bullet Lubricant Mixer Name Role Phone Name, Kiel BAILEY Primary Care Provider [phone] Katlyn Rodriguez PharmD Unavailable [phone] Reason for Visit * Reason Comments Med Refill Encounter Details Date Type Department Care Team ([facility] Contact Info) Description 12/30/2024 Refill [facility] 230 [place] [address] Sarita Baker MD 230 [place] [address] Nondisplaced fracture of right radial styloid process, initial encounter for closed fracture Social History Tobacco Use Types Packs/Day Years [...] Description 01/09/2025 9:00 AM EST Medication Management [address] [address] Katlyn Rodriguez PharmD [address] [place] [address] 01/10/2025 11:30 AM EST Office Visit [address] [address] Name, MD Kiel [address] [place] [address] 02/04/2025 11:30 AM EST Clinical Support [address] [address] Opal Steienr RN documented as of this encounter Goals [...] as of this encounter Visit Diagnoses Diagnosis Nondisplaced fracture of right radial styloid process, initial encounter for closed fracture documented in this encounter Additional Health Concerns Assessment Noted Time PHQ-9 Depression Total Score: 7 09/05/19 25 11:46 AM EDT documented as of this encounter Care Teams Bullet Lubricant Mixer Relationship Specialty Start Date End Date Name, MD Kiel 230 [place] [address] PCP - General Family Medicine 07/15/15 Katlyn Rodriguez PharmD 230 [place] [address] Pharmacist Internal Medicine 10/08/22 Marta Ovalle Consumer Loan ProcessorStructural Engineering Drafting Officer 05/25/23 documented as of this encounter
--- OUTSIDE RECORDS SUMMARY | 2025-01-01 14:33 | XMS_ITS | Encounter Summary ---
Author Organization [employer] Address [address] [place] [address] 7t [place] [address] Care Team Providers Care Video Tape Editor Name Role Phone Name, Kiel BAILEY Primary Care Provider [phone] Katlyn Rodriguez PharmD Unavailable Nehal Ann RN Unavailable Unavailable Ania Spencer Unavailable Opal Carrasquillo Unavailable [phone] Ania Spencer Unavailable Reason for Visit * Reason Comments Med Refill Encounter Details Date Type Department Care Team (Late st Contact Info) Description 07/02/2022 Refill [facility]INE 230 [place], [place] [phone] Name, MD Kiel 230 [place], [place] [phone] Chronic pain syndrome Social History Tobacco Use [...] Description 01/09/2025 9:00 AM EST Medication Management [address] [address] Katlyn Rodriguez PharmD [address] [place] [address] 01/10/2025 11:30 AM EST Office Visit [address] [address] Name, MD Kiel [address] [place] [address] 02/04/2025 11:30 AM EST Clinical Support [address] [address] Opal Steiner RN documented as of this encounter Visit Diagnoses Diagnosis Chronic pain syndrome documented in this encounter Care Teams Video Tape Editor Relationship Specialty Start Date End Date Name, MD Kiel [address] [place] [address] PCP - General Family Medicine 07/15/15 Katlyn Rodriguez PharmD [address] [place] [address] Pharmacist Internal Medicine 10/08/22 Nehal Ann, MARINA [address] [place] [address] Registered Nurse Family Medicine 08/20/24 10/29/24 Ania Spencer 08/20/24 11/26/24 Opal Carrasquillo Registered Nurse 10/29/24 11/26/24 Ania Spencer 12/14/24 12/26/24 Marta Ovalle Dimethylaniline Sulfator OperatorMedia Developer 05/25/23 documented as of this encounter
--- OUTSIDE RECORDS SUMMARY | 2025-01-01 14:33 | XMS_ITS | Encounter Summary ---
Author Organization [employer] Address 75 [facility] 7t [place] [address] Care Team Providers Care Resolute Professional Name Role Phone Name, Kiel BAILEY Primary Care Provider [phone] Katlyn Rodriguez PharmD Unavailable Nehal Ann RN Unavailable Unavailable Ania Spencer Unavailable Opal Carrasquillo Unavailable Ania Spencer Unavailable Reason for Visit * Reason Comments Med Refill Encounter Details Date Type Department Care Team (Late st Contact Info) Description 06/08/2024 Refill [facility] CHC MED & PEDS [address] [place], [place] [phone] Name, MD Kiel [address] [place] [address] Chronic pain syndrome Social History Tobacco Use [...] the past 12 months, has t he [employer], gas, oil or water company threatened to [...] Description 01/09/2025 9:00 AM EST Medication Management [address] [address] Katlyn Rodriguez PharmD [address] [place] [address] 01/10/2025 11:30 AM EST Office Visit [address] [address] Name, MD Kiel [address] [place] [address] 02/04/2025 11:30 AM EST Clinical Support [address] [address] Opal Steiner, RN documented as of this [...] documented as of this encounter Care Teams Resolute Professional Relationship Specialty Start Date End Date Name, MD Kiel [address] [place] [address] PCP - General Family Medicine 07/15/15 Puia, Katlyn, PharmD [address] [place] [address] Pharmacist Internal Medicine 10/08/22 Nehal Ann, MARINA [address] [place] [address] Registered Nurse Family Medicine 08/20/24 10/29/24 Ania Spencer 08/20/24 11/26/24 Opal Carrasquillo Registered Nurse 10/29/24 11/26/24 Ania Spencer 12/14/24 12/26/24 Marta Ovalle Acid DumperTanner Rotary Drum Continuous Process 05/25/23 documented as of this encounter
--- OUTSIDE RECORDS SUMMARY | 2025-01-01 14:33 | XMS_ITS | Encounter Summary ---
Author Organization [employer] Address [address] [facility] 7t [place] [address] Care Team Providers Care Nuts And Bolts Assembler Name Role Phone Name, Kiel BAILEY Primary Care Provider [phone] Katlyn Rodriguez PharmD Unavailable [phone] Nehal Ann RN Unavailable Unavailable Ania Spencer Unavailable Opal Carrasquillo Unavailable [phone] Ania Spencer Unavailable Encounter Details Date Type Department Care Team (Late Contact Info) Description 03/12/2022 Orders Only [facility] CHC MED & PEDS [address] [place], [place] [phone] Millie Sawant LPN Social History Tobacco Use [...] Team ([facility] Contact Info) Description 01/09/2025 9:00 AM EST Medication Management [facility] [place] [address] Katlyn Rodriguez PharmD [facility] [address] 01/10/2025 11:30 AM EST Office Visit [facility] [place] [address] Name, MD Kiel [facility] [place] [address] 02/04/2025 11:30 AM EST Clinical Support [address] [place] [address] Opal Steiner, MARINA documented as of this encounter Visit Diagnoses Not on filedocumented in this encounter Care Teams Nuts And Bolts Assembler Relationship Specialty Start Date End Date Name, MD Kiel [facility] [place] [address] PCP - General Family Medicine 07/15/15 Katlyn Rodriguez, PharmD [facility] [place] [address] Pharmacist Internal Medicine 10/08/22 Nehal Ann RN [address] [place] [address] Registered Nurse Family Medicine 08/20/24 10/29/24 Ania Spencer 08/20/24 11/26/24 Opal Carrasquillo Registered Nurse 10/29/24 11/26/24 Ania Spencer 12/14/24 12/26/24 Marta Ovalle Sheetmetal PatternmakerSpanish Instructor 05/25/23 documented as of this encounter
--- OUTSIDE RECORDS SUMMARY | 2025-01-01 14:33 | XMS_ITS | Encounter Summary ---
Author Organization [employer] Address 75 [facility] 7t [place] [address] Care Team Providers Care World Travel Counselor Name Role Phone Name, Kiel BAILEY Primary Care Provider [phone] Katlyn Rodriguez PharmD Unavailable [phone] Nehal Ann RN Unavailable Unavailable Ania Spencer Unavailable Opal Carrasquillo Unavailable [phone] Ania Spencer Unavailable Reason for Visit * Reason Comments Med Refill Encounter Details Date Type Department Care Team (Late st Contact Info) Description 06/08/2024 Refill [facility] CHC MED & PEDS [address] [place], [place] [phone] Name, MD Kiel [address] [place] [address] Chronic pain syndrome Social History Tobacco Use [...] the past 12 months, has t he [employer], gas, oil or water company threatened to [...] Description 01/09/2025 9:00 AM EST Medication Management [address] [address] Katlyn Rodriguez PharmD [address] [place] [address] 01/10/2025 11:30 AM EST Office Visit [address] [address] Name, MD Kiel [address] [place] [address] 02/04/2025 11:30 AM EST Clinical Support [address] [address] Opal Steiner, RN documented as of this [...] documented as of this encounter Care Teams World Travel Counselor Relationship Specialty Start Date End Date Name, MD Kiel [address] [place] [address] PCP - General Family Medicine 07/15/15 Puia, Katlyn, PharmD [address] [place] [address] Pharmacist Internal Medicine 10/08/22 Nehal Ann, MARINA [address] [place] [address] Registered Nurse Family Medicine 08/20/24 10/29/24 Ania Spencer 08/20/24 11/26/24 Opal Carrasquillo Registered Nurse 10/29/24 11/26/24 Ania Spencer 12/14/24 12/26/24 Marta Ovalle Electricity TraderCna Hospice 05/25/23 documented as of this encounter
--- OUTSIDE RECORDS SUMMARY | 2025-01-01 14:33 | XMS_ITS | Encounter Summary ---
Author Organization [employer] Address [address] [place] [address] 7t [place] [address] Care Team Providers Care Product Development Assistant Name Role Phone Name, Kiel BAILEY Primary Care Provider [phone] Katlyn Rodriguez PharmD Unavailable Nehal Ann RN Unavailable Unavailable Ania Spencer Unavailable Opal Carrasquillo Unavailable [phone] Ania Spencer Unavailable Encounter Details Date Type Department Care Team (Late st Contact Info) Description 07/01/2022 Abstract [facility] MEDICINE [address] [place], [place] [phone] Name, MD Kiel [address] [place], [place] [phone] Social History Tobacco Use Types Packs/Day Years [...] Description 01/09/2025 9:00 AM EST Medication Management [address] [phone] Katlyn Rodriguez PharmD [address] [place] [address] 01/10/2025 11:30 AM EST Office Visit [address] [phone] Name, MD Kiel [address] [place] [address] 02/04/2025 11:30 AM EST Clinical Support [address] [phone] Opal Steiner, MARINA documented as of this encounter Visit Diagnoses Not on filedocumented in this encounter Care Teams Product Development Assistant Relationship Specialty Start Date End Date Name, MD Kiel [address] [place] [address] PCP - General Family Medicine 07/15/15 Katlyn Rodriguez PharmD [address] [place] [address] Pharmacist Internal Medicine 10/08/22 Nehal Ann, MARINA [address] [place] [address] Registered Nurse Family Medicine 08/20/24 10/29/24 Ania Spencer 08/20/24 11/26/24 Opal Carrasquillo Registered Nurse 10/29/24 11/26/24 Ania Spencer 12/14/24 12/26/24 Marta Ovalle PctsRn Pain Management 05/25/23 documented as of this encounter
--- OUTSIDE RECORDS SUMMARY | 2025-01-01 14:33 | XMS_ITS | Encounter Summary ---
Author Organization [employer] Address [address] [facility] 7t [place] [address] Care Team Providers Care Repeater Operator Name Role Phone Name, Kiel BAILEY Primary Care Provider Katlyn Rodriguez PharmD Unavailable [phone] Nehal Ann RN Unavailable Unavailable Ania Spencer Unavailable Opal Carrasquillo Unavailable Ania Spencer Unavailable Reason for Visit * Reason Comments Med Refill Encounter Details Date Type Department Care Team (Late st Contact Info) Description 09/07/2023 Refill [facility] CHC MED & PEDS [address] [place] [address] Name, MD Kiel [address] [place] [address] Type 2 diabetes mellitus with other specified [...] Description 01/09/2025 9:00 AM EST Medication Management [address] [address] Katlyn Rodriguez PharmD [address] [place] [address] 01/10/2025 11:30 AM EST Office Visit [address] [address] Name, MD Kiel [address] [place] [address] 02/04/2025 11:30 AM EST Clinical Support [address] [address] Opal Steiner, RN documented as of this [...] documented as of this encounter Care Teams Repeater Operator Relationship Specialty Start Date End Date Name, MD Kiel [address] [place] [address] PCP - General Family Medicine 07/15/15 Katlyn Rodriguez, PharmD [address] [place] [address] Pharmacist Internal Medicine 10/08/22 Nehal Ann RN [address] [place] [address] Registered Nurse Family Medicine 08/20/24 10/29/24 Ania Spencer 08/20/24 11/26/24 Opal Carrasquillo Registered Nurse 10/29/24 11/26/24 Ania Spencer 12/14/24 12/26/24 Marta Ovalle Clinical Mental Health CounselorProduction Engine Repairer 05/25/23 documented as of this encounter
--- OUTSIDE RECORDS SUMMARY | 2025-01-01 14:33 | XMS_ITS | Encounter Summary ---
Author Organization [employer] Address [address] [place] [address] 7t [place] [address] Care Team Providers Care Sales Office Manager Name Role Phone Name, Kiel BAILEY Primary Care Provider [phone] Katlyn Rodriguez PharmD Unavailable Nehal Ann RN Unavailable Unavailable Ania Spencer Unavailable Opal Carrasquillo Unavailable Ania Spencer Unavailable Reason for Visit * Reason Comments Med Refill Encounter Details Date Type Department Care Team (Late st Contact Info) Description 04/15/2023 Refill [facility] MEDICINE [address] [place], [place] [phone] Yaneth Restrepo FNP [address] [place] [address] Diabetes mellitus type 2 in obese (CMS/HCC) [...] Description 01/09/2025 9:00 AM EST Medication Management [address] [address] Katlyn Rodriguez, PharmD [address] [place] [address] 01/10/2025 11:30 AM EST Office Visit [address] [address] Name, MD Kiel [address] [place] [address] 02/04/2025 11:30 AM EST Clinical Support [address] [address] Opal Steiner RN documented as of this [...] as of this encounter Care Teams Sales Office Manager Relationship Specialty Start Date End Date Name, MD Kiel [address] [place] [address] PCP - General Family Medicine 07/15/15 Katlyn Rodriguez PharmD [address] [place] [address] Pharmacist Internal Medicine 10/08/22 Nehal Ann RN [address] [place] [address] Registered Nurse Family Medicine 08/20/24 10/29/24 Ania Spencer 08/20/24 11/26/24 Opal Carrasquillo Registered Nurse 10/29/24 11/26/24 Ania Spencer 12/14/24 12/26/24 Marta Ovalle Medical Front Desk SpecialistAdvisor To Command In Combat 05/25/23 documented as of this encounter
--- OUTSIDE RECORDS SUMMARY | 2025-01-01 14:33 | XMS_ITS | Encounter Summary ---
Author Organization [employer] Address [address] [place] [address] 7t [place] [address] Care Team Providers Care Supervisor Poultry Processing Name Role Phone Name, Kiel BAILEY Primary Care Provider [phone] Katlyn Rodriguez PharmD Unavailable Nehal Ann RN Unavailable Unavailable Ania Spencer Unavailable Opal Carrasquillo Unavailable Ania Spencer Unavailable Encounter Details Date Type Department Care Team ([facility] Contact Info) Description 02/23/2022 Orders Only [facility] [address] [place], [place] [phone] Name, MD Kiel [address] [place], [place] [phone] Social History Tobacco Use Types Packs/Day Years [...] Description 01/09/2025 9:00 AM EST Medication Management [address] [phone] Katlyn Rodriguez PharmD [place], [place] 01/10/2025 11:30 AM EST Office Visit [address] [phone] Name, MD Kiel [place], [place] 02/04/2025 11:30 AM EST Clinical Support [address] [phone] Opal Steiner, MARINA documented as of this encounter Visit Diagnoses Not on filedocumented in this encounter Care Teams Supervisor Poultry Processing Relationship Specialty Start Date End Date Name, MD Kiel [address] [place] [address] PCP - General Family Medicine 07/15/15 Katlyn Rodriguez PharmD [address] [place] [address] Pharmacist Internal Medicine 10/08/22 Nehal Ann, MARINA [address] [place] [address] Registered Nurse Family Medicine 08/20/24 10/29/24 Ania Spencer 08/20/24 11/26/24 Opal Carrasquillo Registered Nurse 10/29/24 11/26/24 Ania Spencer 12/14/24 12/26/24 Marta Ovalle Topline Beading Machine TenderNail Specialist 05/25/23 documented as of this encounter
--- OUTSIDE RECORDS SUMMARY | 2025-01-01 14:33 | XMS_ITS | Encounter Summary ---
Author Organization [employer] Address 75 [facility] 7t [place] [address] Care Team Providers Care Vending Machine Operator Name Role Phone Name, Kiel BAILEY Primary Care Provider [phone] Katlyn Rodriguez PharmD Unavailable [phone] Nehal Ann RN Unavailable Unavailable Ania Spencer Unavailable Opal Carrasquillo Unavailable [phone] Ania Spencer Unavailable Encounter Details Date Type Department Care Team (Late st Contact Info) Description 08/26/2022 Orders Only [facility] MEDICINE [address] [place] [address] Leia Gonzales LPN Social History Tobacco Use [...] Description 01/09/2025 9:00 AM EST Medication Management [facility] [place] [address] Katlyn Rodriguez PharmD [facility] [place] 01/10/2025 11:30 AM EST Office Visit [address] [place] [address] Name, MD Kiel [facility] [place] 02/04/2025 11:30 AM EST Clinical Support [facility] [place] [address] Opal Steiner, MARINA documented as of this encounter Visit Diagnoses Not on filedocumented in this encounter Additional Health Concerns Assessment Noted Time PHQ-9 Depression Total Score: 7 07/15/19 23 2:39 PM EDT documented as of this encounter Care Teams Vending Machine Operator Relationship Specialty Start Date End Date Name, MD Kiel [facility] [place] [address] PCP - General Family Medicine 07/15/15 Katlyn Rodriguez, [place] [address] Pharmacist Internal Medicine 10/08/22 Nehal Ann, MARINA [address] [place] [address] Registered Nurse Family Medicine 08/20/24 10/29/24 Ania Spencer 08/20/24 11/26/24 Opal Carrasquillo Registered Nurse 10/29/24 11/26/24 Ania Spencer 12/14/24 12/26/24 Marta Ovalle Napper RunnerLast Cleaner 05/25/23 documented as of this encounter
--- OUTSIDE RECORDS SUMMARY | 2025-01-01 14:33 | XMS_ITS | Clinical Summary ---
Author Organization [facility] Address [address] [place] [address] Phone Care Team Providers Care Sweep Molder Name Role Phone Name, Kiel BAILEY Primary Care Provider [phone] Allergies Active Allergy Reactions Criticality Noted Date [...] Active medical supply, miscellaneous (MISCELLANEOUS MEDICAL SUPPLY [facility] ULTICARE SHORT PEN NEEDLES 31G X 8 MM USE FOUR TIMES DAILY TO INJECT insulin WITH A MEAL AND AT BEDTIME 06/23/19 16 Active blood sugar diagnostic (FreeStyle Lite Strips) test strip USE TO TEST FINGER STICK BLOOD SUGAR TWICE DAILY DIRECTED 06/23/19 16 Active medical supply, miscellaneous (MISCELLANEOUS MEDICAL SUPPLY MISC) [facility]. DEVICES (COMMODE BEDSIDE) MIS 1 Device by Does not apply route as needed (voiding/bm). 12/11/19 15 Active ASPIRIN ORAL Take 1 Tab by mouth daily. 11/28/19 15 Active lancets (Sure Comfort Lancets) 30 gauge [facility] USE TO TEST FINGER STICK BLOOD SUGAR [...] Problem Noted Date Diagnosed Date COPD exacerbation ([facility] V24, [facility] V28) Abnormal nuclear stress test 11/06/2014 Rib fracture 12/24/2013 Overview (12/12/2023): Non displaced, probable froacture on the right ninth and tenth Abdominal pain 08/15/2013 Lipoma of abdominal wall 11/02/2011 Visual field defect 03/29/2011 Cocaine abuse, episodic use ([facility] V24, [facility] V28) 06/17/2010 Low back pain radiating to left leg 10/08/2009 Overview (12/12/2023): The patient follows with [facility] and is treated with injections to the LS. Asthmatic bronchitis , chronic ([facility] V24, [facility] V28) 07/07/2009 Overview (12/12/2023): Severe and worse in the spring. Last hospitalazion in May and 3 ER visits Hospital 08/02 Known medical problems 06/05/2009 Tobacco use disorder 06/05/2009 Hypertriglyceridemia 06/05/2009 Morbid obesity ([facility] V24, [facility] V28) 2009 Overview (12/12/2023): BMI 48.37 [...] TOTAL HYSTERECTOMY WITH BSO; COMMENT: for bleeding, [facility] Medical History Medical History Date Comments Type II or unspecified type diabetes mellitus with unspecified complication, not stated as uncontrolled DX:Type II or unspecified t ype diabetes mellitus with unspecified complication, not stated as uncontrolled Unspecified essential hypertension DX:Unspecified essential hypertension Tobacco abuse DX:Tobacco abuse RAD (reactive airway disease) DX :RAD (reactive airway disease) Morbid obesity ([facility] V24, [facility] V28) DX:Morbid obesity ([facility]) Asthmatic bronchitis , chron ic ([facility] V24, [facility] V28) 07/07/2009 DX:Asthmatic bronchitis , ch ronic ([facility]) Hypertriglyceridemia 06/05/2009 DX:Hypertri glyceridemia Rib fracture 12/24/2013 DX:Rib fracture Family History Medical History Relation Name Comments Blindness Brother 1 Breast cancer Maternal Grandmother Cataracts Maternal Grandmother Blindness Mother Glaucoma Neg Hx Macular degeneration Neg Hx Strabismus Neg Hx Relation Name Status Comments Brother 1 Brother 2 OK Brother 3 Alive 6 brothers are diabetic [...] Upcoming Encounters Date Type Department Care Team ([facility] st Contact Info) Description 01/31/2025 9:00 AM EST Office Visit [facility] [place] [address] [phone] Wesley Garcia, MOE [address] [phone] Health Maintenance Due Date Last Done Comments [...] mmol/L LAB CHEMISTRY METHOD 02/06/2024 3:36 AM [facility] Potassium 4.1 3.5 - 5.5 mmol/L LAB CHEMISTRY METHOD 02/06/2024 3:36 AM [facility] Chloride 104 96 - 110 mmol/L LAB CHEMISTRY METHOD 02/06/2024 3:36 AM [facility] CO2 23 21 - 32 mmol/L LAB CHEMISTRY METHOD 02/06/2024 3:36 AM [facility] Anion Gap 9 3 - 11 LAB CHEMISTRY METHOD 02/06/2024 3:36 AM [facility] Glucose 244(H) 70 - 100 mg/dL LAB CHEMISTRY METHOD 02/06/2024 3:36 AM [facility] BUN 17 5 - 25 mg/dL LAB CHEMISTRY METHOD 02/06/2024 3:36 AM [facility] Creatinine 0.71 0.50 - 1.10 mg/dL LAB CHEMISTRY METHOD 02/06/2024 3:36 AM [facility] eGFR 99 >=60 mL/min/1. 73m2 LAB CHEMISTRY METHOD 02/06/2024 3:36 AM EST [facility] Comment:Calculation based on the Chronic Kidney Disease Epidemiology Collaboration (CKD-EPI) equation refit without adjustment for race. BUN/Creatinine Ratio 23.9 LAB CHEMISTRY METHOD 02/06/2024 3:36 AM EST [facility] Calcium 9.3 8.5 - 10.5 mg/dL LAB CHEMISTRY METHOD 02/06/2024 3:36 AM EST [facility] Blood Venous blood specimen / Unknown Venipuncture / Unknown 02/06/2024 2:59 AM EST 02/06/2024 3:13 AM EST Result [facility] Cindy SEGURA LAB BLOOD ORDERABLES Final R esult [facility] [address] [place] [address], * (ABNORMAL) Hemoglobin A1c (11/20/2014) Pathologist [facility] Hemoglobin A1C 7.5(A) 4.0 - 6.0 % Blood Venous blood specimen / Unknown Result [facility] Historical Provider LAB BLOOD ORDERABLES Alis l Result * Urine Albumin Creatinine Ratio (05/10/2014) Pathologist [facility] Urine Albumin Creatinine Ratio abstracted Result [facility] Historical Provider HEALTH MAINTENANCE Final Result * (ABNORMAL) Lipid panel (05/10/2014) [facility] LDL/HDL Ratio 4 0 - 4 Triglycerides 360(A) 0 - 150 mg/dL Cholesterol 179 0 - 200 mg/dL HDL 42 >=40 mg/dL LDL Cholesterol 65 0 - 100 mg/dL Blood Venous blood specimen / Unknown Result [facility] Historical Provider LAB BLOOD ORDERABLES Alis l Result * Hepatitis C Screening (10/10/2013) Pathologist [facility] Hepatitis C Screening abstracted us Historical Provider HEALTH MAINTENANCE Final Result from Last 3 Months or Most Recently Relevant to Health Maintenance Insurance MEDICA[place] - [place] Advance Directives * Full Code - Default [...] currently active code status orders. Care Teams Sweep Molder Relationship Specialty Start Date End Date Name, MD Kiel [address] [place], [place] PCP - General Internal Medicine 08/28/15
--- OUTSIDE RECORDS SUMMARY | 2025-01-01 14:33 | XMS_ITS | Encounter Summary ---
Author Organization [employer] Address [address] [facility] 7t [place] [address] Care Team Providers Care Billing Typist Name Role Phone Name, Kiel BAILEY Primary Care Provider [phone] Katlyn Rodriguez PharmD Unavailable [phone] Nehal Ann RN Unavailable Unavailable Ania Spencer Unavailable Opal Carrasquillo Unavailable Ania Spencer Unavailable Encounter Details Date Type Department Care Team (Late st Contact Info) Description 05/01/2024 Telephone [facility] [address] [place], [place] [phone] Name, MD Kiel 230 [place], [place] [phone] Social History Tobacco Use Types Packs/Day Years [...] Description 01/09/2025 9:00 AM EST Medication Management [facility] [address] [place] [address] Katlyn Rodriguez, PharmD 230 [place] [address] 01/10/2025 11:30 AM EST Office Visit [facility] [address] [place] [address] Name, MD Kiel [address] [place] [address] 02/04/2025 11:30 AM EST Clinical Support [facility] [address] [place] [address] Opal Steiner, MARINA documented as of this encounter Goals Goal Patient Goal Type Associated Problems Recent Progress Patient-Stated? Author Record your blood pressure once per day Blood Pressure No Puia, Katlyn, PharmD Blood Pressure < 140/90 Blood Pressure 136/87(2024 11:09 AM EST) No Puia, Katlyn, PharmD Hemoglobin A1c < 7 Result Component 7.5( 11:12 AM EDT) No Puia, Katlny, PharmD Record your blood sugar as directed Result Component No Puia, Katlyn, PharmD documented as of this encounter Visit Diagnoses Not on filedocumented in this encounter Additional Health Concerns Assessment Noted Time PHQ-9 Depression Total Score: 4 09/02/19 10:30 AM EDT documented as of this encounter Care Teams Billing Typist Relationship Specialty Start Date End Date Name, MD Kiel [address] [place] [address] PCP - General Family Medicine 07/15/15 Puia, Katlyn, PharmD [address] [place] [address] Pharmacist Internal Medicine 10/08/22 Nehal Ann RN [address] [place] [address] Registered Nurse Family Medicine 08/20/24 10/29/24 Ania Spencer 08/20/24 11/26/24 Opal Carrasquillo Registered Nurse 10/29/24 11/26/24 Ania Spencer 12/14/24 12/26/24 Marta Ovalle Improvement RnCustoms Compliance Specialist 05/25/23 documented as of this encounter
--- OUTSIDE RECORDS SUMMARY | 2025-01-01 14:34 | XMS_ITS | Encounter Summary ---
Author Organization [facility] Address [address] [facility] [address] [place] [address] Phone Care Team Providers Care Senior Oracle Applications Developer Name Role Phone Unavailable Primary Care Provider Unavailabl e Encounter Details Date Type Department Care Team (Latest Contact Info) Description 01/04/2020 Ancillary Orders [facility] [address] [place] [address] [place] [address] Brihgt Jesus, DO [address] [place] [address] Chest pain, unspecified type Social History Tobacco [...] event markers during sinusrhythm without ectopy. Bright Jeuss DO [facility] ORDERABLE S Final Result documented in this encounter Visit Diagnoses Diagnosis Chest pain, unspecified type documented in this encounter Additional Source Comments The information contained in this document represents components of the legal health record. It is not the complete legal health record.[facility]
--- OUTSIDE RECORDS SUMMARY | 2025-01-01 14:34 | XMS_ITS | Encounter Summary ---
Author Organization [employer] Address [address] [facility] 7t [place] [address] Care Team Providers Care Publicity Writer Name Role Phone Name, Kiel BAILEY Primary Care Provider [phone] Katlyn Rodriguez PharmD Unavailable Ania Spencer Unavailable Opal Carrasquillo Unavailable Ania Spencer Unavailable Encounter Details Date Type Department Care Team (Late st Contact Info) Description 11/08/2024 Results Follow-Up [facility] 230 [place] [address] Lorenzo Chavez MD 230 [place] [address] XR Hand 3+ Views Left Social History [...] Description 01/09/2025 9:00 AM EST Medication Management [address] [address] Katlyn Rodriguez PharmD [address] [place] [address] 01/10/2025 11:30 AM EST Office Visit [address] [address] Name, MD Kiel [address] [place] [address] 02/04/2025 11:30 AM EST Clinical Support [address] [address] Opal Steiner, MARINA documented as of this [...] documented as of this encounter Care Teams Publicity Writer Relationship Specialty Start Date End Date Name, MD Kiel 230 [place] [address] PCP - General Family Medicine 07/15/15 PuKatlyn albert, PharmD 230 [place] [address] Pharmacist Internal Medicine 10/08/22 Ania Spencer 08/20/24 11/26/24 Opal Carrasquillo Registered Nurse 10/29/24 11/26/24 Ania Spencer 12/14/24 12/26/24 Marta Ovalle Occupational Health ManagerStreet Light Mechanic 05/25/23 documented as of this encounter
--- OUTSIDE RECORDS SUMMARY | 2025-01-01 14:34 | XMS_ITS | Encounter Summary ---
Author Organization [facility] Address [address] [facility] [address] [place] [address] Phone Care Team Providers Care Gas Operations Analyst Name Role Phone Unavailable Primary Care Provider Unavailabl e Encounter Details Date Type Department Care Team (Late st Contact Info) Description 01/04/2020 Procedure Pass [facility] [address] [place] [address] [place], [place] [phone] Social History Tobacco Use Types Packs/Day Years [...]
--- OUTSIDE RECORDS SUMMARY | 2025-01-01 14:34 | XMS_ITS | Encounter Summary ---
Author Organization [employer] Address [address] [facility] 7t [place] [address] Care Team Providers Care Winding Inspector And Tester Name Role Phone Name, Kiel BAILEY Primary Care Provider [phone] Katlyn Rodriguez PharmD Unavailable [phone] Nehal Ann RN Unavailable Unavailable Ania Spencer Unavailable Opal Carrasquillo Unavailable Ania Spencer Unavailable Encounter Details Date Type Department Care Team (Late st Contact Info) Description 02/20/2024 Telephone [facility] [address] [place], [place] [phone] Name, MD Kiel 230 [place] [address] Social History Tobacco Use Types Packs/Day Years [...] 01/09/2025 9:00 AM EST Medication Management [address] [address] Katlyn Rodriguez PharmD [address] [place] [address] 01/10/2025 11:30 AM EST Office Visit [address] [address] Name, MD Kiel [address] [place] [address] 02/04/2025 11:30 AM EST Clinical Support [address] [address] Opal Steiner, MARINA documented as of this [...] documented as of this encounter Care Teams Winding Inspector And Tester Relationship Specialty Start Date End Date Name, MD Kiel 230 [place] [address] PCP - General Family Medicine 07/15/15 PuiaReidKatlyn, PharmD 230 [place] [address] Pharmacist Internal Medicine 10/08/22 Nehal Ann, MARINA 230 [place] [address] Registered Nurse Family Medicine 08/20/24 10/29/24 Ania Spencer 08/20/24 11/26/24 Opal Carrasquillo Registered Nurse 10/29/24 11/26/24 Ania Spencer 12/14/24 12/26/24 Marta Ovalle Job CoachTrim And Burr Operator 05/25/23 documented as of this encounter
--- OUTSIDE RECORDS SUMMARY | 2025-01-01 14:34 | XMS_ITS | Encounter Summary ---
Author Organization [employer] Address [address] [place] [address] 7[place] [address] Care Team Providers Care Tower Switch Operator Name Role Phone Name, Kiel BAILEY Primary Care Provider [phone] Katlyn Rodriguez PharmD Unavailable Nehal Ann RN Unavailable Unavailable Ania Spencer Unavailable Opal Carrasquillo Unavailable Ania Spencer Unavailable Reason for Referral * Consultation (Routine) - Closed Specialty Diagnoses / Procedures Referred By Carroll hoover Referred To Contact Occupational Therapy Diagnoses Left arm weakness Lizzie Alfaro NP 230 [place] [address] Phone: tel: fax: [facility] [address] [place] [address] Phone: tel: fax: Referral ID Status Reason Start Date Expiration Date V isits Requested Visits Authorized [id number] Closed Specialty Services Required 09/06/2024 09/06/2025 20 20 Encounter Details Date Type Department Care Team (Late st Contact Info) Description 09/06/[address] [facility] 230 [place] [address] Lizzie Aflaro NP 230 [place] [address] Left arm weakness (Primary Dx) Social History [...] Description 01/09/2025 9:00 AM EST Medication Management [facility] 230 [place] [address] Katlyn Rodriguez, PharmD 230 [place] [address] 01/10/2025 11:30 AM EST Office Visit [address] [address] Name, MD Kiel [address] [place] [address] 02/04/2025 11:30 AM EST Clinical Support [address] [address] Opal Steiner, MARINA Scheduled Referrals Name Type [...] documented as of this encounter Care Teams Tower Switch Operator Relationship Specialty Start Date End Date Name, MD Kiel [address] [place] [address] PCP - General Family Medicine 07/15/15 Puia, Katlyn, PharmD [address] [place] [address] Pharmacist Internal Medicine 10/08/22 Nehal Ann RN [address] [place] [address] Registered Nurse Family Medicine 08/20/24 10/29/24 Ania Spencer 08/20/24 11/26/24 Opal Carrasquillo Registered Nurse 10/29/24 11/26/24 Ania Spencer 12/14/24 12/26/24 Marta Ovalle Supervisor Tan RoomScript Coordinator 05/25/23 documented as of this encounter
--- OUTSIDE RECORDS SUMMARY | 2025-01-01 14:34 | XMS_ITS | Encounter Summary ---
Author Organization [employer] Address [address] [place] [address] 7t [place] [address] Care Team Providers Care Dinkey Engineer Name Role Phone Name, Kiel BAILEY Primary Care Provider Katlyn Rodriguez PharmD Unavailable Nehal Ann RN Unavailable Unavailable Ania Spencer Unavailable Opal Carrasquillo Unavailable [phone] Ania Spencer Unavailable Reason for Visit * Reason Onset Date Comments Durable Medical Equipment 12/06/2022 Encounter Details Date Type Department Care Team (Late st Contact Info) Description 12/06/2022 Telephone [facility] 230 [place], [place] [phone] Name, MD Kiel 230 [place], [place] [phone] Durable Medical Equipment Social History Tobacco Use [...] to message above. Please contact pt at [phone] (Barbadian) * Telephone Encounter - Jean-Paul Finch - 12/06/2022 3:29 PM EDT Tc from pt requesting status on some bed absorbant pads to not stain bed. Please contact pt at [phone] Barbadian Speaker documented in this encounter Plan of Treatment Upcoming Encounters Date Type Department Care Team (Late st Contact Info) Description 01/09/2025 9:00 AM EST Medication Management [facility] [address] [place] [address] Puia, Katlyn, [place] [address] 01/10/2025 11:30 AM EST Office Visit [address] [address] Name, MD Kiel [place], [place] 02/04/2025 11:30 AM EST Clinical Support [address] [address] Opal Steiner RN documented as of this [...] documented as of this encounter Care Teams Dinkey Engineer Relationship Specialty Start Date End Date Name, [place] [address] PCP - General Family Medicine 07/15/15 Puia, Katlyn, PharmD [address] [place] [address] Pharmacist Internal Medicine 10/08/22 Nehal Ann, MARINA [address] [place] [address] Registered Nurse Family Medicine 08/20/24 10/29/24 Ania Spencer 08/20/24 11/26/24 Opal Carrasquillo Registered Nurse 10/29/24 11/26/24 Ania Spencer 12/14/24 12/26/24 Marta Ovalle Flower Shop Laborer/DesignerWasher Off 05/25/23 documented as of this encounter
--- OUTSIDE RECORDS SUMMARY | 2025-01-01 14:34 | XMS_ITS | Encounter Summary ---
Author Organization [employer] Address [address] [place] [address] 7t [place] [address] Care Team Providers Care Assembler Carbon Brushes Name Role Phone Name, Kiel BAILEY Primary Care Provider Katlyn Rodriguez PharmD Unavailable [phone] Nehal Ann RN Unavailable Unavailable Ania Spencer Unavailable Opal Carrasquillo Unavailable [phone] Ania Spencer Unavailable Reason for Visit * Reason Onset Date Comments FYI 08/03/2024 Encounter Details Date Type Department Care Team (Late st Contact Info) Description 08/03/2024 Telephone [facility] 230 [place], [place] [phone] Name, MD Kiel 230 [place], [place] [phone] FYI Social History Tobacco Use Types Packs/Day [...] will be admitting pt for OT and fdc. If any questions you can contact pt at [phone], documented in this encounter Plan of Treatment Upcoming Encounters Date Type Department Care Team (Late st Contact Info) Description 01/09/2025 9:00 AM EST Medication Management [facility] 230 [place] [address] Katlyn Rodriguez, PharmD 230 [place] [address] 01/10/2025 11:30 AM EST Office Visit [facility] [place] [address] Kiel [place] [address] 02/04/2025 11:30 AM EST Clinical Support [address] [address] Opal Steiner, MARINA documented as of this [...] documented as of this encounter Care Teams Assembler Carbon Brushes Relationship Specialty Start Date End Date K[place] [address] PCP - General Family Medicine 07/15/15 Puia, Katlyn, PharmD [address] [place] [address] Pharmacist Internal Medicine 10/08/22 Nehal Ann, MARINA [address] [place] [address] Registered Nurse Family Medicine 08/20/24 10/29/24 Ania Spencer 08/20/24 11/26/24 Opal Carrasquillo Registered Nurse 10/29/24 11/26/24 Ania Spencer 12/14/24 12/26/24 Marta Ovalle Floor MolderSpace Technologist 05/25/23 documented as of this encounter
--- OUTSIDE RECORDS SUMMARY | 2025-01-01 14:34 | XMS_ITS | Encounter Summary ---
Author Organization [employer] Address [address] [place] [address] 7t [place] [address] Care Team Providers Care Wafer Batter Mixer Name Role Phone Name, Kiel BAILEY Primary Care Provider [phone] Katlyn Rodriguez PharmD Unavailable [phone] Nehal Ann RN Unavailable Unavailable Ania Spencer Unavailable Opal Carrasquillo Unavailable [phone] Ania Spencer Unavailable Reason for Visit * Reason Onset Date Comments Nurse Triage 07/04/2024 Encounter Details Date Type Department Care Team (Late st Contact Info) Description 07/04/2024 Telephone [facility] 230 [place], [place] [phone] Name, MD Kiel 230 [place] [address] Nurse Triage Social History Tobacco Use Types [...] AM EDT Triage call with [facility] Security Alarm Technician [place] [id number]. Pt reports headache over the entire head. No involvement with eye area. BP is 104/60. Pt has been seen by neurologist at [facility] and is being tested for possible tumor. Pt was prescribed dexamethasone byneurologist. Pt pain is moderate . Pt has been prescribed roxicodone 10mg starting 06/28/24 but, reports pharmacy wouldn't fill prescription last time contacted. Pt daughter is speaking for Pt at this time. Daughter is advised to call [facility] for prescription of roxicodone which [...] caller accepted this outcome. Contact pt at [phone] (greek) documented in this encounter Plan of Treatment Upcoming Encounters Date Type Department Care Team ([facility] st Contact Info) Description 01/09/2025 9:00 AM EST Medication Management [address] [address] Puia, Katlyn, PharmD [address] [place] [address] 01/10/2025 11:30 AM EST Office Visit [address] [phone] Name, MD Kiel [address] [place] [address] 02/04/2025 11:30 AM EST Clinical Support [address] [address] Opal Steiner, MARINA documented as of this [...] documented as of this encounter Care Teams Wafer Batter Mixer Relationship Specialty Start Date End Date Name, MD Kiel 230 [place] [address] PCP - General Family Medicine 07/15/15 Katlyn Rodriguez, PharmD 230 [place] [address] Pharmacist Internal Medicine 10/08/22 Nehal Ann, MARINA 230 [place] [address] Registered Nurse Family Medicine 08/20/24 10/29/24 Ania Spencer 08/20/24 11/26/24 Opal Carrasquillo Registered Nurse 10/29/24 11/26/24 Ania Spencer 12/14/24 12/26/24 Marta Ovalle Obstetrics Scrub NurseReactor Technician 05/25/23 documented as of this encounter
--- OUTSIDE RECORDS SUMMARY | 2025-01-01 14:34 | XMS_ITS | Encounter Summary ---
Author Organization [employer] Address [address] [place] [address] 7t [place] [address] Care Team Providers Care Ammonia Solution Preparer Name Role Phone Name, Kiel BAILEY Primary Care Provider [phone] Katlyn Rodriguez PharmD Unavailable Nehal Ann RN Unavailable Unavailable Ania Spencer Unavailable Opal Carrasquillo Unavailable [phone] Ania Spencer Unavailable Reason for Visit * Reason Onset Date Comments FYI 08/03/2024 Encounter Details Date Type Department Care Team (Late st Contact Info) Description 08/03/2024 Telephone [facility] 230 [place], [place] [phone] Name, MD Kiel 230 [place], [place] [phone] FYI Social History Tobacco Use Types Packs/Day [...] - 08/03/2024 2:00 PM EDT Tc from [facility] with N stating pt has an upcoming appointment with pcp and would like to report: 1) Pt was discharged yesterday 08/02. Reason: COPD. 2) F/u Left ear symptoms. Pt unable to hear. 3) F/u pull up prescription. Any questions contact [facility] [phone] documented in this encounter Plan of Treatment Upcoming Encounters Date Type Department Care Team (Late st Contact Info) Description 01/09/2025 9:00 AM EST Medication Management [address] [phone] Puia, Katlyn, PharmD [address] [place] [address] 01/10/2025 11:30 AM EST Office Visit [address] [address] Name, MD Kiel [address] [place] [address] 02/04/2025 11:30 AM EST Clinical Support [address] [phone] Opal Steiner RN documented as of this [...] as of this encounter Care Teams Ammonia Solution Preparer Relationship Specialty Start Date End Date Name, MD Kiel [address] [place] [phone] PCP - General Family Medicine 07/15/15 Puia, Katlyn, PharmD [address] [place] [address] Pharmacist Internal Medicine 10/08/22 Nehal Ann, RN [address] [place] [address] Registered Nurse Family Medicine 08/20/24 10/29/24 Ania Spencer 08/20/24 11/26/24 Opal Carrasquillo Registered Nurse 10/29/24 11/26/24 Ania Spencer 12/14/24 12/26/24 Marta Ovalle Property MasterSprinkling System Installer 05/25/23 documented as of this encounter
--- OUTSIDE RECORDS SUMMARY | 2025-01-01 14:34 | XMS_ITS | Clinical Summary ---
Author Organization [facility] Address [address] [place] [address] [place] [address] Phone Care Team Providers Care Program Clinician Name Role Phone Unavailable Primary Care Provider [...] Devices Not on file Insurance [employer] [address] [place] [address] [place] [address] [place] [address] [place] [address] [place] [address] [place] [address] [place] [address] [employer] Additional Source Comments The information contained in this document represents components of the legal health record. It is not the complete legal health record.[facility]
--- OUTSIDE RECORDS SUMMARY | 2025-01-01 14:34 | XMS_ITS | Encounter Summary ---
Author Organization [employer] Address [address] [place] [address] 7t [place] [address] Care Team Providers Care Repair Tech Name Role Phone Name, Kiel BAILEY Primary Care Provider Katlyn Rodriguez PharmD Unavailable [phone] Nehal Ann RN Unavailable Unavailable Ania Spencer Unavailable Opal Carrasquillo Unavailable Ania Spencer Unavailable Encounter Details Date Type Department Care Team (Late Contact Info) Description 10/29/2022 Abstract [facility] 230 [place], [place] [phone] Name, MD Kiel 230 [place], [place] [phone] Social History Tobacco Use Types Packs/Day Years [...] Description 01/09/2025 9:00 AM EST Medication Management [address] [address] Katlyn Rodriguez PharmD [place] 01/10/2025 11:30 AM EST Office Visit [address] [address] Name, MD Kiel [place], [place] 02/04/2025 11:30 AM EST Clinical Support [address] [address] Opal Steiner, MARINA documented as of this [...] as of this encounter Care Teams Repair Tech Relationship Specialty Start Date End Date Name, MD Kiel [place], [place] PCP - General Family Medicine 07/15/15 Katlyn Rodriguez, PharmD [place], [place] Pharmacist Internal Medicine 8/18/23 Nehal Ann, RN 230 [place] [address] Registered Nurse Family Medicine 08/20/24 10/29/24 Ania Spencer 08/20/24 11/26/24 Opal Carrasquillo Registered Nurse 10/29/24 11/26/24 Ania Spencer 12/14/24 12/26/24 Marta Ovalle Data Processing Equipment RepairerEmt I/85 05/25/23 documented as of this encounter
--- OUTSIDE RECORDS SUMMARY | 2025-01-01 14:34 | XMS_ITS | Encounter Summary ---
Author Organization [employer] Address [address] [place] [address] 7t [place] [address] Care Team Providers Care Radio Time Sales Supervisor Name Role Phone Name, Kiel BAILEY Primary Care Provider [phone] Katlyn Rodriguez PharmD Unavailable Nehal Ann RN Unavailable Unavailable Ania Spencer Unavailable Opal Carrasquillo Unavailable [phone] Ania Spencer Unavailable Reason for Visit * Reason Onset Date Comments Durable Medical Equipment 01/24/2023 Encounter Details Date Type Department Care Team (Late st Contact Info) Description 01/24/2023 Telephone [facility] MED[facility] 230 [place], [place] [phone] Name, MD Kiel 230 [place], [place] [phone] Durable Medical Equipment Social History Tobacco Use [...] to errol. Any questions, contact pt at [phone] documented in this encounter Plan of Treatment Upcoming Encounters Date Type Department Care Team (Late st Contact Info) Description 01/09/2025 9:00 AM EST Medication Management [address] [address] Katlyn Rodriguez, PharmD [address] [place] [address] 01/10/2025 11:30 AM EST Office Visit [address] [address] Name, MD Kiel [address] [place] [address] 02/04/2025 11:30 AM EST Clinical Support [address] [address] Opal Steiner, MARINA documented as of this [...] as of this encounter Care Teams Radio Time Sales Supervisor Relationship Specialty Start Date End Date Name, MD Kiel 230 [place] [address] PCP - General Family Medicine 07/15/15 Puia, Katlyn, PharmD 230 [place] [address] Pharmacist Internal Medicine 10/08/22 Nehal Ann RN [address] [place] [address] Registered Nurse Family Medicine 08/20/24 10/29/24 Ania Spencer 08/20/24 11/26/24 Opal Carrasquillo Registered Nurse 10/29/24 11/26/24 Ania Spencer 12/14/24 12/26/24 Marta Ovalle Demolition Crane OperatorElectrochemist 05/25/23 documented as of this encounter
--- OUTSIDE RECORDS SUMMARY | 2025-01-01 14:34 | XMS_ITS | Clinical Summary ---
Author Organization [employer] Address [address] [place] [address] 7[address] [place] [address] Care Team Providers Care Outside Sales Manager Name Role Phone Name, Kiel BAILEY Primary Care Provider [phone] Katlyn Rodriguez PharmD Unavailable [phone] Allergies Active Allergy Reactions Criticality Noted [...] pressure daily 1 kit 05/26/19 24 Active OXcarbazepine (Trileptal) 150 MG tablet Take 150 mg by mouth before breakfast. Has additional RX for 300 mg, 1.5 tabs at bedtime Active Icosapent Ethyl (Vascepa) 1 g capsuleIndicati ons:Type 2 diabetes mellitus with other specified complication, with long-term current use of insulin ([facility]),Hypertrig lyceridemia Take 2 capsules (2 g) by [...] complication, with long-term current use of insulin ([facility]) Inject 15 mg under the skin 1 (one) time per week. 2 mL 11 06/08/19 25 Active ezetimibe (Zetia) 10 MG tabletIndicatio ns:Type 2 diabetes mellitus with other specified complication, with long-term current use of insulin ([facility]) TAKE 1 TABLET BY MOUTH EVERY MORNING 30 tablet 11 07/24/19 25 Active cetirizine (ZyrTEC) 10 MG tablet TAKE 1 TABLET BY MOUTH EVERY MORNING 90 tablet 1 07/25/19 25 Active rosuvastatin (Crestor) 40 MG tabletIndicatio ns:Type 2 diabetes mellitus with other specified complication, with long-term current use of insulin ([facility]),History of stroke,Tobacco use disorder,Hypert riglyceridemia Take 1 tablet (40 mg) by mouth Once per day. 90 tablet 1 08/17/19 25 Active gabapentin (Neurontin) 800 MG tablet Take 1 tablet (800 mg) by mouth 3 times daily. 90 tablet 08/21/19 25 026 Active aspirin 81 MG chewable tabletIndicatio ns:Type 2 diabetes mellitus with other specified complication, with long-term current use of insulin ([facility]) Chew 1 tablet (81 mg) [...] 30 tablet 09/13/19 25 Active TechLite Pen Shade 32G X 4 MM miscIndications :Type 2 diabetes mellitus with other specified complication ([facility]) USE DIRECTED FOUR TIMES DAILY 100 each 09/29/19 25 Active Blood Glucose Monitoring Suppl (FreeStyle Lite) deviceIndicatio ns:Type 2 diabetes mellitus with other specified complication, with long-term current use of insulin ([facility]) Inject 1 each under the skin 2 times daily. Use to test blood sugar as directed 1 each 10/03/19 25 Active glucose blood (FREESTYLE LITE) test stripIndication s:Type 2 diabetes mellitus with other specified complication, with long-term current use of insulin ([facility]) Use to test blood sugar 2 times daily 50 strip 10/03/19 25 Active TRUEplus Lancets 33G miscIndications :Type 2 diabetes mellitus with other specified complication, with long-term current use of insulin ([facility]) Use to test blood sugar twice daily as directed 100 each 10/03/19 25 Active traZODone (Desyrel) 100 MG tablet [...] split. 50 tablet 1 12/25/19 25 Active Alcohol Swabs (Alcohol Prep) 70 % pads USE DIRECTED TWICE DAILY 100 each 5 12/27/19 25 Active lidocaine (Lidoderm) 5 % patchIndication s:Nondisplaced fracture of right radial styloid process, initial encounter for closed fracture APPLY 1 PATCH TOPICALLY TO SKIN, LEAVE ON FOR 12 HOURS AND OFF FOR 12 HOURS DIRECTED 30 patch 1 01/02/20 25 Active acetaminophen (Tylenol 8 Hour) 650 MG ER tablet TAKE 1 TABLET BY MOUTH EVERY 8 HOURS NEEDED FOR MILD PAIN DO NOT BREAK, CRUSH, DISSOLVE OR CHEW 90 tablet 1 11/25/ 025 Discontinued(R eorder (will not trigger notification to Pharmacy)) Alcohol Swabs (Alcohol Prep) 70 % pads USE DIRECTED TWICE DAILY 100 each 5 01/31/20 24 025 Discontinued famotidine (Pepcid) 20 MG tablet TAKE 1 TABLET BY MOUTH TWICE DAILY IN THE MORNING AND IN THE EVENING 180 tablet 08/23/19 25 025 Discontinued lidocaine (Lidoderm) 5 % patchIndication s:Nondisplaced fracture of right radial styloid process, initial encounter for closed fracture Apply 1 patch topically Once per day. Remove & discard patch within 12 hours or as directed by MD. 30 patch 1 10/10/19 25 025 Discontinued oxyCODONE (Roxicodone) 10 MG [...] eddi as late effect of cerebrovascular accident ([facility]) 11/01/2024 Assessment & Plan (11/01/2024 4:03 PM [...] to the hospital Case was presented to [facility] emergency room Hemiparesis of left dominant side ([facility]) 07/23 Assessment & Plan (08/17/2024 1:36 PM EDT): Patient will benefit from PT evaluation and after evaluation at the hospital to be referred to acute PT center Cerebrovascular accident (CVA) ([facility]) 025 History of stroke 07/30/2024 Cerebellar mass 06/28/2024 Chronic, continuous use of opioids 11/29/2023 Overview (11/29/2023): Dx: OA knee Tx: 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 last signed: 05/03/23 Chronic pain syndrome 05/03/2023 [...] EST): I presented the case to [facility] emergency room, patient will go by ambulance [...] tolerate CPAP On nocturnal oxygen Follows with [facility] pulmonary (Bajua) Cocaine abuse, episodic use (CMS/HCC) [...] for Paxlovid sent to the pharmacy -Utilized [facility] to [...] 06/28/2024 Pancytopenia 04/18/2018 06/28/2024 Simple chronic bronchitis ([facility]) 04/18/2018 06/28/2024 Overview (07/14/2022): Severe and worse in the spring. Last hospitalazion in May and 3 ER visits Hospital 08/02 Acute exacerbation of chroni c obstructive airways disease with asthma ([facility]) 01/02/2018 Seizure ([facility]) 11/18/2017 06/28/2024 Anterior knee pain 10/20/2016 Mesenteric [...] Encounters Date Type Department Care Team Description 12/30/2024 Refill [facility] [address] [address] Sarita Baker MD Nondisplaced fracture of right radial styloid process, initial encounter for closed fracture 12/26/2024 Patient Outreach [facility] [address] [place] [address] Kiel Shaffer MD Care Coordination (Communication to pt assigned CP Coordinator) 12/26/2024 Refill [facility] [address] [place] [address] Kiel Shaffer MD 12/25/2024 Orders Only GENERIC EXTERNAL DATA DEPARTMENT Provider, Generic External Data 12/25/[address] [address] Kiel Shaffer MD FYI 12/24/2024 10:40 AM EST [facility] [address] [address] Victorino Graves MD Acute pain of left shoulder (Primary Dx); Injury of left shoulder, subsequent encounter; Left-sided weakness 12/24/[address] [address] Kiel Shaffer MD Results (Pt requesting wheelchair , pt stated she's falling too much. ) 12/24/2024 Travel 12/14/[address] [address] Elsie Hall, BLAST FURNACE BLOWER Follow-up 12/14/2024 Patient Outreach [facility] [address] [place], [place] [phone] Kiel Shaffer MD Care Coordination (CP Care Coordination Chart Review) 12/14/2024 Patient Outreach [facility] [address] [place] [address] Kiel Shaffer MD Care Coordination ([facility] Follow up) 12/14/2024 Patient Outreach [address] [address] Kiel Shaffer MD 12/13/2024 10:40 AM EDT Office Visit [facility] [address] [address] Lorenzo Chavez MD Acute pain of left shoulder (Primary Dx); Acute pain of right knee; Nondisplaced fracture of right radial styloid process, subsequent encounter for closed fracture with delayed healing 12/13/2024 Travel 12/13/2024 Refill [facility] [address] [place] [address] Kiel Shaffer MD Cerebellar mass; Chronic intractable headache, unspecified headache type 12/10/2024 [facility] [address] [address] Kiel Shaffer MD 12/07/[address] [address] Kiel Shaffer MD Cerebellar mass; Chronic intractable headache, unspecified headache type 11/30/2024 Orders Only [facility] [address] [place] [address] Kiel Shaffer MD 11/27/2024 Travel 11/26/2024 Travel 11/26/2024 Patient Outreach [address] [address] Kiel Shaffer MD Care Management ([facility] TC #3-case closed) 11/15/2024 11:30 AM EDT Clinical Support [address] [address] Opal Steiner, RN Long-term current use of opiate analgesic (Primary Dx) 11/15/[address] [address] Opal Steiner, MARINA Cerebellar mass; Chronic intractable headache, unspecified headache type; Long-term current use of opiate analgesic 11/15/2024 Travel 11/12/[address] [address] Barbara Martinez MA 11/12/[address] [address] Barbara Martinez MA DecemberS 11/08/2024 Results Follow-Up [facility] [address] [place] [address] Lorenzo Chavez MD XR Hand 3+ Views Left 11/08/2024 Travel 11/06/2024 5:00 PM EDT Office Visit [facility] [address] [place] [address] Lorenzo Chavez MD Swelling of left hand (Primary Dx) 11/06/2024 Travel 11/02/2024 Results Follow-Up [facility] [address] [place] [address] Sarita Baker MD XR Shoulder 2+ Views Left 11/01/2024 1:00 PM EDT Office Visit [address] [address] Sarita Baker MD Acute bilateral low back pain without sciatica; Acute pain of left shoulder; Bilateral hand pain; Hemiparesis affecting left side as late effect of cerebrovascular accident ([facility]) 11/01/2024 Travel 11/01/[address] [address] Kiel Shaffer MD Nurse Triage 10/29/[address] [address] Katlyn Rodriguez, PharmD 10/29/2024 Travel 10/18/2024 Refill [facility] [address] [place] [address] Kiel Shaffer MD Psychophysiological insomnia 10/18/[address] [address] Lizzie Alfaro NP Cerebellar mass; Chronic intractable headache, unspecified headache type 10/17/2024 Patient Outreach [facility] [address] [place] [address] Kiel Shaffer MD Care Coordination ([facility] f/u call- LVM) 10/16/2024 Patient Outreach [facility] [address] [place], [place] [phone] Kiel Shaffer MD 10/09/2024 2:00 PM EDT Office Visit [address] [address] Sarita Baker MD Essential hypertension (Primary Dx); Nondisplaced fracture of right radial styloid process, initial encounter for closed fracture 10/09/2024 Travel 10/09/[address] [address] Kiel Shaffer MD ER Follow-up; Nurse Triage 10/09/[address] [address] Kiel Shaffer MD No Show 10/06/2024 Orders Only [facility] External Provider, [facility] 10/05/[address] [address] Kiel Shaffer MD Referral 10/04/2024 Patient Outreach [address] [address] Kiel Shaffer MD Care Management ([facility] TC #2-lvm) 10/02/2024 10:40 AM EDT Office Visit [address] [address] Victorino Graves MD Acute otitis externa of left ear, unspecified type (Primary Dx) 10/02/[address] [address] Kiel Shaffer MD 10/02/2024 Travel from Last 3 Months Immunizations Immunization Administration Dates Next Due HepB-CpG 11/05/2022,10/08/2022 Influenza Injectable Quadriv alant Preservative Free IIV4 MDCK 11/05/2022 Influenza Whole 11/06/2010 Influenza injectable quadriv alent IIV4 with preservative 01/09/2016 Influenza injectable quadriv alent preservative free 11/13/2021,01/21/2021,01/07/2020,12/13,01/30/2018 Influenza, IIV3, injectable 02/03/2016,1 ,12/16/2013,02/23,11/02/2012,10/26/2011,01/13/2011 ,11/03/2010,11/21/2009 Influenza, seasonal, injecta ble, preservative free 11/27/2024,11/29/2023 Novel [id number], all formulations 05/31/2009 Pneumococcal Conjugate PCV 20 [...] the past 12 months, has t he [employer], gas, oil or water [employer] threatened to shut off services in your [...] Description 01/09/2025 9:00 AM EST Medication Management [address] [address] Katlyn Rodriguez, PharmD [address] [place] [address] 01/10/2025 11:30 AM EST Office Visit [address] [address] Name, MD Kiel [address] [place] [address] 02/04/2025 11:30 AM EST Clinical Support [address] [address] Opal Steiner, RN Health Maintenance Due Date [...] Additional history exists Eye Exam 12/16/2024 12/17/2023, 0406/2022, 03/14/2012 Diabetes: Hemoglobin A1C 01/02/2025 025, 06/28/2024, 03/27/2024, Additional history exists Mammogram 06/02/2025 06/03/2023, 01/03/2019 Alcohol/Substance Use Screening 06/28/2025 06/28/2024 SDOH Screening 2025 2024 Depression Screening 09/04/2025 09/04/2024, 09/05/19 25 Disability Screening 11/26/2025 11/26/2024 Lipid Panel 11/30/2025 11/30/2024, 04/09/2024, 10/25/2023, Additional history exists Tobacco Screening 12/24/2025 [...] Vaccines Completed 11/05/2022, 10/09/19 Influenza Vaccine Completed 11/27/2024, , 11/05/2022, Additional [...] Comments XR SHOULDER 2+ VIEWS LEFT Routine 12/25/2024 9:51 PM EST COMPREHENSIVE METABOLIC PANEL Routine 12/25/2024 [...] Results * XR Shoulder 2+ Views Left (12/25/2024 9:51 PM EST) Only the most recent of3 resultswithin the time period is included. Anatomical Region Laterality Modality Upper Extremities, Shoulder Left Radi ographic Imaging 12/25/2024 9:51 PM EST Narrative 12/25/2024 9:53 PM EST [place] [address] XRay Report Signed Patient: Sarita Puga MR#: [id number] 92 : 1965 Acct:[id number] Age/Sex: 59 / F ADM Date: 12/25/24 Loc: HO.ED Attending Dr: Ordering Physician: Ignacia Lorenzo Date of Service: 12/25/24 Procedure(s): XR shoulder LT min 2V Accession Number(s): [id number] cc: Ignacia Lorenzo; Name,Kiel BAILEY Reason for Exam: pain, trauma? CLINICAL HISTORY: pain, trauma? 3 view left shoulder Comparison: CR/NM/SR - XR SHOULDER 2 OR MORE VIEWS LEFT - 12/13/24 12:34 EDT Findings: This examination is mildly limited by suboptimal patient positioning and artifact related to structures overlying the patient. No acute fracture or dislocation injury identified. There appears to be widening of the left glenohumeral joint space. No radiopaque foreign body. IMPRESSION: 1. Mildly limited examination as described above. There appears to be widening of the left glenohumeral joint space which is of uncertain etiology, possibly related to distention of the joint by an effusion, bony subluxation in this region, or possibly a projectional finding. No acute fracture or dislocation injury identified. This document has been electronically signed by: Merrill Iyer MD on 12/25/2024 21:51:30 Dictated By: Merrill Iyer MD Signed By: <Electronically signed by Merrill Iyer MD in OV> 12/25/242151 DD/ 50 TD/TT: 12/25/242150 System Archive Analyst: Procedure Note Donotuseinterpreter, Image - 12/25/[address] [address] XRay Report Signed Patient: Sarita Puga MMR#: [id number] 92 : 1965Acct:[id number] Age/Sex: 59 / FADM Date: 12/25/24 Loc: HO.ED Attending Dr: Ordering Physician: Ignacia Lorenzo Date of Service: 12/25/24 Procedure(s): XR shoulder LT min 2V Accession Number(s): [id number] cc: Ignacia Lorenzo; Name,Kiel BAILEY Reason for Exam: pain, trauma? CLINICAL HISTORY: pain, trauma? 3 view left shoulder Comparison: CR/NM/SR - XR SHOULDER 2 OR MORE VIEWS LEFT - 12/13/24 12:34 EDT Findings: This examination is mildly limited by suboptimal patient positioning and artifact related to structures overlying the patient. No acute fracture or dislocation injury identified. There appears to be widening of the left glenohumeral joint space. No radiopaque foreign body. IMPRESSION: 1. Mildly limited examination as described above. There appears to be widening of the left glenohumeral joint space which is of uncertain etiology, possibly related to distention of the joint by an effusion, bony subluxation in this region, or possibly a projectional finding. No acute fracture or dislocation injury identified. This document has been electronically signed by: Merrill Iyer MD on 12/25/2024 21:51:30 Dictated By: Merrill Iyer MD Signed By: <Electronically signed by Merrill Iyer MD in OV> 12/25/242151 DD/ 50 TD/TT: 12/25/242150 System Archive Analyst: [facility] External Provider IMG XR PROCEDURES Final Result * CBC auto differential (12/25/2024 5:51 PM EST) White Blood Count 6.7 4.8 - 10.8 X10*3/uL [facility] Red Blood Count 4.86 4.20 - 5.50 X10*6/uL [facility] Hemoglobin 13.3 12.0 - 16.0 g/dl [facility] Hematocrit 40.7 37.0 - 47.0 % [facility] Mean Corpuscular Volume 83.7 80.0 - 98.0 fL [facility] Mean Corpuscular Hemoglobin 27.4 27.0 - 33.0 pg [facility] Mean Corpuscular HGB Conc 32.7 31.0 - 35.0 g/dl [facility] Red Cell Distribution Width 12.9 11.0 - 16.0 % [facility] Platelet Count 170 160 - 400 X10*3/uL [facility] Mean Platelet Volume 12.3 9.4 - 12.3 fL [facility] Neutrophils Percent Auto 56.0 45 - 73 % [facility] Imm Gran Pct Auto 0.3 0.0 - 0.4 % [facility] Lymphocytes Percent Auto 34.1 20 - 40 % [facility] Monocytes Percent Auto 7.1 2 - 11 % [facility] Eosinophils Percent Auto 1.6 0 - 4 % [facility] Basophils Percent Auto 0.9 0 - 2 % [facility] NRBC Pct Auto 0.0 0.0 - 0.2 /100WBC [facility] Neutrophils Absolute Auto 3.8 2.0 - 8.3 x10*3/uL [facility] Imm Gran Abs Auto 0.02 0.00 - 0.03 X10*3/uL [facility] Lymphocytes Absolute Auto 2.3 1.2 - 4.9 X10*3/uL [facility] Monocytes Absolute Auto 0.5 0.1 - 1.2 X10*3/uL [facility] Eosinophils Absolute Auto 0.1 0.0 - 0.4 X10*3/uL [facility] Basophils Absolute Auto 0.1 0.0 - 0.2 X10*3/uL [facility] NRBC Abs Auto 0.000 0.0 - 0.012 X10*3/uL [facility] 12/25/2024 5:51 PM EST 12/25/2024 6:01 PM EST us Generic External Data Provider LAB BLOOD ORDERAB LES Final Result [facility] [address] [place], [place] [phone] * (ABNORMAL) Comprehensive Metabolic Panel (12/25/2024 5:51 PM EST) Sodium 138 135 - 145 mmol/L [facility] Potassium 4.0 3.3 - 5.1 mmol/L [facility] Chloride 104 96 - 108 mmol/L [facility] Carbon Dioxide 27 22 - 29 mmol/L [facility] Anion Gap 11(L) 12 - 20 [facility] Urea Nitrogen (BUN) 15 9 - 16 mg/dL [facility] Creatinine, Serum 0.49(L) 0.5 - 1.4 mg/dL [facility] Creatinine Clr Calc Pharmacy 142.7 [facility] Comment:Provided height and weight: 160.02 cm,104.326 kg.eGFR (calculated from the MDRD study equation) and eCrCl(calculated from the Cockcroft-Gault equation) are based ondifferent parameters and may not yield comparable results.If eCrCl result is absurd, please check patient'sheight/weight. Estimated Glomerular Filt Rate >60 [facility] Comment:Chronic Kidney Disea se: Estimated GFR < 60 mL/min/1.52b2Iulpcv Kidney Disease: Estimated GFR < 15 mL/min/1.73m2 Glucose 138(H) 60 - 115 mg/dL [facility] Calcium 9.3 8.4 - 10.2 mg/dL [facility] Bilirubin, Total 0.3 0.0 - 1.0 mg/dL [facility] Aspartate Amino Transferase 12 5 - 31 U/L [facility] Alanine Aminotransferase 22 0 - 31 U/L [facility] Total Protein 6.8 6.5 - 8.0 g/dL [facility] Albumin Level 4.3 3.5 - 5.0 g/dL [facility] Alkaline Phosphatase 77 39 - 117 U/L [facility] 12/25/2024 5:51 PM EST 12/25/2024 6:01 PM EST us Generic External Data Provider LAB BLOOD ORDERAB LES Final Result [facility] [address] [place] [phone] * XR Knee 3 Views Right (12/13/2024 12:39 PM EDT) Anatomical Region Laterality Modality Lower Extremities, Knee Right Radiogra phic Imaging 12/13/2024 12:3 9 PM EDT Narrative 12/13/2024 12:58 PM EDT [address] [address] XRay Report Signed Patient: Sarita Puga MR#: [id number] 92 : 1965 Acct:[id number] Age/Sex: 59 / F ADM Date: 12/13/24 Loc: HO.ED Attending Dr: Ordering Physician: Aurora Beltrán Date of Service: 12/13/24 Procedure(s): XR knee RT 3V Accession Number(s): [id number] cc: Kiel Shaffer MD; Aurora Beltrán Reason [...] 12/13/24 1255 DD/ 1239 TD/TT: 12/13/24 1246 System Archive Analyst: SALINAS Procedure Note Donotuseinterpreter, Image - 12/13/[address] [address] XRay Report Signed Patient: Sarita Puga MMR#: [id number] 92 : 1965Acct:[id number] Age/Sex: 59 / FADM Date: 12/13/24 Loc: HO.ED Attending Dr: Ordering Physician: Aurora Beltrán Date of Service: 12/13/24 Procedure(s): XR knee RT 3V Accession Number(s): [id number] cc: Name,Kiel BAILEY; Aurora Beltrán Reason for [...] 12/13/24 1255 DD/ 1239 TD/TT: 12/13/24 1246 System Archive Analyst: SALINAS [facility] External Provider IMG XR PROCEDURES Edited Result - Final * XR Lumbar Spine 2-3 Views (12/13/2024 12:38 PM EDT) Only the most recent of2 resultswithin the time period is included. Anatomical Region Laterality Modality Spine, L-spine Radiographic Diana ging 12/13/2024 12:3 8 PM EDT Narrative 12/13/2024 12:56 PM EDT [address] [address] XRay Report Signed Patient: Sarita Puga#: [id number] 92 : 1965 Acct:[id number] Age/Sex: 59 / F ADM Date: 12/13/24 Loc: HO.ED Attending Dr: Ordering Physician: Lacy Saucedo MD Date of Service: 12/13/24 Procedure(s): XR lumbar spine 2-3V Accession Number(s): [id number] cc: Lacy Saucedo MD; Name,Kiel BAILEY Reason [...] 12/13/24 1253 DD/ 1238 TD/TT: 12/13/24 1246 System Archive Analyst: SALINAS Procedure Note Donotuseinterpreter, Image - 12/13/2024 [place] [address] XRay Report Signed Patient: Sarita Puga MMR#: [id number] 92 : 1965Acct:[id number] Age/Sex: 59 / FADM Date: 12/13/24 Loc: HO.ED Attending Dr: Ordering Physician: Lacy Saucedo MD Date of Service: 12/13/24 Procedure(s): XR lumbar spine 2-3V Accession Number(s): [id number] cc: Lacy Saucedo MD; Name,Kiel BAILEY Reason [...] 12/13/24 1253 DD/ 1238 TD/TT: 12/13/24 1246 System Archive Analyst: SALINAS [facility] External Provider IMG XR PROCEDURES Edited Result - Final * MR Wrist w/o Contrast Right (12/06/2024 8:31 PM EDT) Anatomical Region Laterality Modality Upper Extremities, Wrist Right Magneti c Resonance 12/06/2024 8:31 PM EDT Narrative 12/06/2024 8:33 PM EDT [place] [address] Magnetic Resonance Report Signed Patient: Sarita Puga MR#: [id number] 92 : 1965 Acct:[id number] Age/Sex: 59 / F ADM Date: 12/06/24 Loc: HO.MRI Attending Dr: Jose SEGURA Ordering Physician: Jose Hernandez Date of Service: 12/06/24 Procedure(s): MR wrist RT wo con Accession Number(s): [id number] cc: Jose Hernandez; Name,Kiel BAILEY Reason for [...] in OV> 12/06/242032 DD/ 30 TD/TT: 12/06/242030 System Archive Analyst: Procedure Note Donotuseinterpreter, Image - 12/06/[address] [address] Magnetic Resonance Report Signed Patient: Sarita Puga [facility]#: [id number] 92 : 1965Acct:[id number] Age/Sex: 59 / FADM Date: 12/06/24 Loc: HO.MRI Attending Dr: Jose SEGURA Ordering Physician: Jose Hernandez Date of Service: 12/06/24 Procedure(s): MR wrist RT wo con Accession Number(s): [id number] cc: Jose Hernandez; Name,Kiel BAILEY Reason for [...] in OV> 12/06/242032 DD/ 30 TD/TT: 12/06/242030 System Archive Analyst: [facility] External Provider IMG MRI PROCEDURES Final Result * Hepatic Function Panel (11/30/2024 9:56 AM EDT) Bilirubin, Total 0.5 0.0 - 1.0 mg/dL [facility] Bilirubin, Direct 0.2 0.0 - 0.5 mg/dL [facility] Aspartate Amino Transferase 23 5 - 31 U/L [facility] Comment:Slight Hemolysis.Int erpret result with caution. Alanine Aminotransferase 21 0 - 31 U/L [facility] Total Protein 6.9 6.5 - 8.0 g/dL [facility] Albumin Level 4.4 3.5 - 5.0 g/dL [facility] Alkaline Phosphatase 75 39 - 117 U/L [facility] 11/30/2024 9:56 AM EDT 11/30/2024 11:32 AM EDT Kiel Shaffer MD LAB BLOOD ORDERABLES Final Resul t [facility] [address] [place] [address] [phone] * (ABNORMAL) Lipid Panel, Standard (11/30/2024 9:56 AM EDT) Triglycerides 122 <150 mg/dL [facility] Comment:Desirable Triglyceri de: less than 150 mg/dLBorderline High Triglyceride 150-199 mg/dLHigh Triglyceride: 200-499 mg/dLVery High Triglyceride: greater than or equal to 5OO mg/dL Cholesterol 151 <200 mg/dL [facility] Comment:Desirable Cholestero l: less than 200 mg/dLBorderline High Cholesterol: 200-239 mg/dLHigh Cholesterol: greater than 239 mg/dL LDL Cholesterol Calculated 91 <100 mg/dL [facility] Comment:Desirable LDL: less than 100 mg/dLNear Optimal/Above Optimal LDL: 110- 129 mg/dLBorderline High LDL: 130-159 mg/dLHigh LDL: 160-189 mg/dLVery High LDL: greater than or equal to 190 mg/dL HDL Cholesterol 36(L) >40 mg/dL [facility] Comment:Desirable HDL: great er than 40 mg/dL Note: This HDL assay may give artificially low results in patients with liver disease. 11/30/2024 9:56 AM EDT 11/30/2024 11:32 AM EDT us Kiel Name LAB BLOOD ORDERABLES Final Resul t [facility] [address] [place] [phone] * POCT KEELEY-14 Urine Drug Screen [...] / Unknown 11/15/2024 11:43 AM EDT Narrative Obdulia, Opal, RN - 11/15/2024 11:43 AM EDT UTOX cup Lot#[id number] Exp. 11/27/25 Internal Pass Control us Kiel Shaffer MD POINT OF CARE TEST ENTER/EDIT OR DERABLES Final Result * XR Hand 3+ Views Left (11/07/2024 12:00 PM EDT) Anatomical Region Laterality Modality Upper Extremities, Hand Left Radiogra phic Imaging 11/07/2024 12:0 0 PM EDT Narrative 11/07/2024 12:20 PM EDT [facility] [address] [place] [address] XRay Report Signed Patient: Sarita Puga MR#: [id number] 92 : 1965 Acct:[id number] Age/Sex: 59 / F ADM Date: 11/07/24 Loc: .HHCX Attending Dr: Lorenzo Chavez MD Ordering Physician: Lorenzo Chavez MD Date of Service: 11/07/24 Procedure(s): XR hand LT min 3V Accession Number(s): [id number] cc: Lorenzo Chavez MD Reason for Exam: [...] 11/07/24 1217 DD/ 1200 TD/TT: 11/07/24 1202 System Archive Analyst: Procedure Note Donotuseinterpreter, Image - 11/07/2024 [facility] [address] [place] [address] XRay Report Signed Patient: Sarita Puga MMR#: [id number] 92 : 1965Acct:[id number] Age/Sex: 59 / FADM Date: 11/07/24 Loc: HO.HHCX Attending Dr: Lorenzo Chavez MD Ordering Physician: Lorenzo Chavez MD Date of Service: 11/07/24 Procedure(s): XR hand LT min 3V Accession Number(s): [id number] cc: Lorenzo Chavez MD Reason for Exam: [...] 11/07/24 1217 DD/ 1200 TD/TT: 11/07/24 1202 System Archive Analyst: Lorenzo Chavez MD IMG XR PROCEDURES Edited Result - Final * XR Hand 3+ Views Right (10/06/2024 5:17 PM EDT) Anatomical Region Laterality Modality Upper Extremities, Hand Right Radiogra phic Imaging 10/06/2024 5:17 PM EDT Narrative 10/06/2024 5:18 PM EDT [address] [address] XRay Report Signed Patient: Sarita Puga MR#: [id number] 92 : 1965 Acct:[id number] Age/Sex: 59 / F ADM Date: 10/06/24 Loc: HO.ED Attending Dr: Ordering Physician: Justina Perez NP Date of Service: 10/06/24 Procedure(s): XR hand RT min 3V Accession Number(s): [id number] cc: Name,Kiel BAILEY; Justina Perez NP CLINICAL [...] in OV> 10/06/241717 DD/ 16 TD/TT: 10/06/241716 System Archive Analyst: Procedure Note Donotuseinterpreter, Image - 10/06/[address] [address] XRay Report Signed Patient: Sarita Puga MMR#: [id number] 92 : 1965Acct:[id number] Age/Sex: 59 / FADM Date: 10/06/24 Loc: HO.ED Attending Dr: Ordering Physician: Justina Perez NP Date of Service: 10/06/24 Procedure(s): XR hand RT min 3V Accession Number(s): [id number] cc: Kiel Shaffer MD; Justina Perez NP [...] in OV> 10/06/241717 DD/ 16 TD/TT: 10/06/241716 System Archive Analyst: [facility] External Provider IMG XR PROCEDURES Edited Result - Final * XR Wrist 3+ Views Right (10/06/2024 5:12 PM EDT) Anatomical Region Laterality Modality Upper Extremities, Wrist Right Radiogr aphic Imaging 10/06/2024 5:12 PM EDT Narrative 10/06/2024 5:14 PM EDT [place] [address] XRay Report Signed Patient: Sarita Puga MR#: [id number] 92 : 1965 Acct:[id number] Age/Sex: 59 / F ADM Date: 10/06/24 Loc: HO.ED Attending Dr: Ordering Physician: Justina Perez NP Date of Service: 10/06/24 Procedure(s): XR wrist RT min 3V Accession Number(s): [id number] cc: Kiel Shaffer MD; Justina Perez NP [...] in OV> 10/06/241712 DD/ 11 TD/TT: 10/06/241711 System Archive Analyst: Procedure Note Donotuseinterpreter, Image - 10/06/2024 [place] [address] XRay Report Signed Patient: Sarita Puga MMR#: [id number] 92 : 1965Acct:[id number] Age/Sex: 59 / FADM Date: 10/06/24 Loc: .ED Attending Dr: Ordering Physician: Justina Perez NP Date of Service: 10/06/24 Procedure(s): XR wrist RT min 3V Accession Number(s): [id number] cc: Name,Kiel BAILEY; Justina Perez NP CLINICAL [...] in OV> 10/06/241712 DD/ 11 TD/TT: 10/06/241711 System Archive Analyst: [facility] External Provider IMG XR PROCEDURES Edited [...] AM EDT Narrative 06/30/2023 10:24 PM EDT [facility] [address] [place] [address] Mammography Report Signed Patient: Sarita Puga MR#: [id number] 92 : 1965 Acct:[id number] Age/Sex: 57 / F ADM Date: 06/03/23 Loc: HO.MAMMO Attending Dr: Kiel Shaffer MD Ordering Physician: Kiel Shaffer MD Results: 1Negative Date of Service: 06/03/23 Follow Up: 1 Year From Orig ina Mammogram Procedure(s): MM tomosynthesis screening BI Accession Number(s): [id number] cc: Kiel Shaffer MD EXAMINATION: MM SCREENING [...] MD in OV> 06/30/232219 DD/ 0845 TD/TT: System Archive Analyst: Procedure Note Donotuseinterpreter, Image - 06/30/2023 [facility] [address] [place], [place] [address] Mammography Report Signed Patient: Sarita Puga MMR#: [id number] 92 : 1965Acct:[id number] Age/Sex: 57 / FADM Date: 06/03/23 Loc: MARGAUX Attending Dr: Kiel Shaffer MD Ordering Physician: Kiel Shaffer MDResults: 1Negative Date of Service: 06/03/23Follow Up: 1 Year From Orig inal Mammogram Procedure(s): MM tomosynthesis screening BI Accession Number(s): [id number] cc: Kiel Shaffer MD EXAMINATION: MM SCREENING [...] in OV> 06/30/23 2220 DD/ 0845 TD/TT: System Archive Analyst: Kiel Shaffer MD IM BI PROCEDURES Edited Result - Final * Albumin, Random Urine W/Creatinine (05/26/2023 8:27 AM EDT) Creatinine, Urine 185.88 mg/dL [facility] Microalbumin Urine 23.0 mg/L [facility] Microalbum Creatinine Ratio Ur 12.3 <30 ug/mg cr [facility] Comment:Albumin/Creatinine R atio Reference Ranges: Normal: < 30 ug/mg creatinine Microalbuminuria: 30 - 300 ug/mg creatinineClinical Albuminuria: > 300 ug/mg creatinine Urine (Urine, Random) 05/26/2023 8:27 AM EDT 05/26/2023 11:19 AM EDT us Kiel Shaffer MD LAB URINE ORDERABLES Final Resul t [facility] [address] [place] [phone] * Colonoscopy (07/01/2022 4:37 PM EDT) Colonoscopy Normal Normal Narrative Emely Devine - 07/01/2022 4:37 PM EDT Recommended 5 year follow up ([facility]) Glo Provider HEALTH MAINTENANCE Final Result * Diabetes Eye Exam (05/26/2022) Eye Exam Normal Normal us Kiel Shaffer MD HEALTH MAINTENANCE Final Result from Last 3 Months or Most Recently Relevant to Health Maintenance Insurance [facility] [place] [address] [place] [address] [place] Member Subscriber Plan / Payer (Ef fective 2024-Present) Name:Sarita Puga Relation to Subscriber:Self Name:Sarita Puga Payer ID:Not on file Group ID:Not on file Type:Medicaid Address: [address] [place], [place] [employer] [place] [address] , [place] [address] [place] [address] [place] [address] Care Teams Outside Sales Manager Relationship Specialty Start Date End Date Name, MD Kiel [address] [place] [address] PCP - General Family Medicine 07/15/15 Katlyn Rodriguez PharmD [address] [place] [address] Pharmacist Internal Medicine 10/08/22 Marta Ovalle Inside Sales RecruiterFilm And Video Editor 05/25/23
--- OUTSIDE RECORDS SUMMARY | 2025-01-01 14:34 | XMS_ITS | Encounter Summary ---
Author Organization [employer] Address [address] [place] [address] [address] [place] [address] Care Team Providers Care Cargo Mate Name Role Phone Name, Kiel BAILEY Primary Care Provider [phone] Katlyn Rodriguez PharmD Unavailable [phone] Nehal Ann RN Unavailable Unavailable Ania Spencer Unavailable Opal Carrasquillo Unavailable Ania Spencer Unavailable Reason for Referral * Consultation (Routine) - Closed Specialty Diagnoses / Procedures Referred By Contac t Referred To Contact Occupational Therapy Diagnoses Weakness of both lower extremities Hemiparesis of left dominant side as late effect of cerebral infarction (CMS/HCC) (HCC) Lizzie Alfaro NP [address] [place] [address] Phone: tel: fax: [facility] Physical Therapy [address] [place] [address] Phone: tel: fax: Referral ID Status Reason Start Date Expiration Date V isits Requested Visits Authorized [id number] Closed Specialty Services Required 09/06/2024 09/06/2025 20 20 * Consultation (Routine) - Closed Specialty Diagnoses / Procedures Referred By Contac t Referred To Contact Physical Therapy Diagnoses Weakness of both lower extremities Lizzie Alfaro NP [address] [place] [address] Phone: tel: fax: [facility] Physical Therapy [address] [place], [place] Phone: tel: fax: Referral ID Status Reason Start Date Expiration Date V isits Requested Visits Authorized [id number] Closed Specialty Services Required 09/06/2024 09/06/2025 20 20 Encounter Details Date Type Department Care Team (Late st Contact Info) Description 09/06/2024 Orders Only [facility] [address] [place] [address] Lizzie Alfaro NP [address] [place], [place] [phone] Weakness of both lower extremities (Primary Dx); [...] Description 01/09/2025 9:00 AM EST Medication Management [address] [address] PuiaKatlyn, PharmD [address] [place] [address] 01/10/2025 11:30 AM EST Office Visit [address] [phone] Name, MD Kiel [address] [place] [address] 02/04/2025 11:30 AM EST Clinical Support [address] [address] Opal Steiner, MARINA Scheduled Referrals Name Type [...] documented as of this encounter Care Teams Cargo Mate Relationship Specialty Start Date End Date Name, MD Kiel [address] [place] [address] PCP - General Family Medicine 07/15/15 Katlyn Rodriguez, PharmD [address] [place] [address] Pharmacist Internal Medicine 10/08/22 Nehal Ann, MARINA [address] [place] [address] Registered Nurse Family Medicine 08/20/24 10/29/24 Ania Spencer 08/20/24 11/26/24 Opal Carrasquillo Registered Nurse 10/29/24 11/26/24 Ania Spencer 12/14/24 12/26/24 Marta Ovalle Gastrointestinal TechnicianNursing Information Systems Coordinator 05/25/23 documented as of this encounter
== END 2025-01-01 14:52 | disposition home or self-care (01) ==
LOC: HO.HOS 12:50
PROVIDERS: PCP Internal Medicine Geriatric Medicine; Visit Provider Orthopaedic Surgery
DX: S52.514A Nondisplaced fracture of right radial styloid process, initial encounter for closed fracture (principal); M25.632 Stiffness of left wrist, not elsewhere classified; I63.9 Cerebral infarction, unspecified; F17.210 Nicotine dependence, cigarettes, uncomplicated; E11.9 Type 2 diabetes mellitus without complications; M25.642 Stiffness of left hand, not elsewhere classified
CPT/HCPCS: 99215; 99417

== ENCOUNTER → 2025-01-01 12:49 | Outpatient (BNVA) | payer MEDICAID, SELFPAY | PROVIDERS: PCP Internal Medicine Geriatric Medicine; Visit Provider Orthopaedic Surgery | DX: S52.514D Nondisplaced fracture of right radial styloid process, subsequent encounter for closed fracture with routine healing (principal); M25.642 Stiffness of left hand, not elsewhere classified; E11.9 Type 2 diabetes mellitus without complications; F17.210 Nicotine dependence, cigarettes, uncomplicated; I63.9 Cerebral infarction, unspecified; M25.512 Pain in left shoulder | CPT/HCPCS: 99212 ==

== ENCOUNTER → 2025-01-01 13:59 | Outpatient (BNV) | payer MEDICAID, SELFPAY | PROVIDERS: Visit Provider Radiology Diagnostic Radiology | DX: M79.642 Pain in left hand (principal) | CPT/HCPCS: 73130 ==

== ENCOUNTER 2025-01-02 14:20 | Outpatient (REF) | payer MEDICAID, SELFPAY ==
--- OUTSIDE RECORDS SUMMARY | 2023-11-24 08:53 | XMS_ITS | Encounter Summary ---
Author Organization [facility] Address [id number] [place] [phone] Care Team Providers Care Meat Carver Name Role Phone Name, Kiel BAILEY Primary Care Provider [phone] Encounter Details Date Type Department Care Team (Late st Contact Info) Description 11/24/2023 9:53 AM EDT Hospital Encounter TH HISTORIC ENCOUNTERS EASTERN CONVERSION ONLY Geoffrey-Art Vitale MD [address] [place] [phone] Social History Tobacco Use Types Packs/Day Years Used Date Smoking Tobacco: Every Day Cigarettes Last attempted to quit: 08/22/2014 Smokeless Tobacco: Never Alcohol Use Standard Drinks/Week Comments No 0 (1 standard drink = 0.6 oz pur e alcohol) Interpersonal Safety Answer Date Record ed Physical Abuse Unrecognized value 02/05/2024 Verbal Abuse Unrecognized value 02/05/2024 Comments Unknown Sex and Gender Information Value Date Recorded Sex Assigned at Not on file Legal Sex Female 7:38 AM EST Gender Identity Not on file Sexual Orientation Not on file documented as of this encounter Last Filed Vital Signs Vital Sign Reading Time Taken Comments Blood Pressure 106/63 11/24/2023 10:39 AM EDT Sitting Right arm Pulse 77 11/24/2023 10:39 AM EDT Temperature - - Respiratory Rate - - Oxygen Saturation - - Inhaled Oxygen Concentration - - Weight 110 kg (241 lb 12.8 oz) 11/24/2023 10:39 AM EDT Height 157.5 cm (5' 2 ) 11/03/2021 9:20 AM EDT Body Mass Index 44.23 11/03/2021 9:20 AM EDT documented in this encounter Functional Status * Calculated C-SSRS Risk Score (Lifetime/Recent) Answer Date of Assessment Author No Risk Indicated 02/05/2024 6:47 AM Rosy New RN * [place] Suicide Severity Rating Scale (Screener/Recent Self-Report) Question Answer Date of Assessment Author 1. Wish to be (Past 1 Month) No 024 6:47 AM Rosy New RN 2. Non-Specific Active Suici rex Thoughts (Past 1 Month) No 02/05/2024 6:47 AM Boom New RN 6. Suicidal Behavior (Lifetime) No 6:47 AM Rosy New RN documented as of this encounter Progress Notes * Art Son MD - 11/24/2023 10:30 AM EDT Images from the original note were not included. Progress Notes by Art Davis MD at 11/24/2023 10:30 AM Author: Art Davis MD Service: -- Author Type: Physician Filed: 11/24/2023 2:17 PM Encounter Date: 11/24/2023 Status: Signed Plug Grower: Art Davis MD (Physician) CHIEF COMPLAINT: Chief Complaint Patient presents with ? Follow-up Diffuse large B-cell lymphoma Stage III Completed 6 cycles of R-CHOP in July 23, 2018 IDENTIFIER:Sarita Puga is a 58 y.o. female. HPI: The patient returns for follow up of Large B-cell lymphoma. Here with her daughter , who is greek to grenadian manager brand Patient reports that she has been doing well over the last [address] neck, CAP, and is here for follow-up. Patient has been feeling well. His weight is stable. She has occasional headache, and memory issues likely related to partially treated obstructive sleep apnea. She has not felt any new lymphadenopathy. Denies any episodes of chills or fevers. Lab work is reviewed, imaging studies reviewed she has completed more than 5 years since treatment completed in July 2018 The following is copied, reviewed and edited 08/2018 -- Patient is accompanied by her daughter and girlfriend. As Polish to Georgian manager brand assisted with the discussion. She had a further hospitalization for COPD exacerbation. She continues on several medications for her comorbidities as listed below. Patient is not on home oxygen, but hadrecent testing to identify need for O2. She was recently prescribed asleep machine, but that is herpanic attack, she is not able to tolerate. She has now completed 6 cycles of R CHOP regimen. She had a restaging imaging, with PET/CT scan, that has shown complete response. Therefore now she will continue on a period of surveillance for the next 5 years. Risks of recurrence were discussed with the patient. She has an approximate 80-90% cure rate, 10/2018 -- Today her main issue is regarding a skin rash, along her arm, and forearm. This has been itchy, raised lesion. She denies any fevers. Patient is also complaining of hematuria, for which she is undergoing evaluation by cystoscopy later this week She has stopped the aspirin Her weight has remained stable, she has not experienced any chills or fevers, no nighttime sweats. She has not noticed any new lymph node enlargement Left knee pain improved, right-sided knee, she received a cortisone injection Will plan to keep the Mediport in situ for the next 18 months. She will need monthly Mediport flushes. PLAN - Clinically daily she is doing quite well, without any Additional lymphadenopathy or B symptoms Continue clinical surveillance at this time Restaging imaging, will obtain CAT scans annually, chest abdomen and pelvis, patient had axillary, external iliac and left inguinal adenopathy in addition to neck adenopathy 01/2019 - 12/2019 - Patient reports that she has intermittent pain along the right side of her neck. She was evaluated by Shirin Moraes PA-C 2 weeks ago. Patient had restaging imaging, and returns for follow-up. She also felt a swelling in her abdomen, CT abdomen and pelvis were also obtained. Imaging studies from 12/10/2019 are reviewed in detail and a copy provided to patient. CT neck showed significantly improved generalized cervical lymphadenopathy, largest nodes no [address] CAP showedno developing thoracic adenopathy, slight increase in size of borderline bilateral external iliac lymph nodes, uncertain significance. Size of these lymph nodes was 11 mm. 08/2020- Patient was seen in clinic 2 months ago, she had complained of neck pain and. Increased swelling onthe left side of her neck. For concern of cellulitis, she was started on antibiotics. We will request and review reports and imaging Her weight has been stable. She denies any chills or fevers 03/2021- Patient was seen in clinic 4 months ago. Patient is approximately 2.5 years since completion of treatment and 3 years since diagnosis. She reports that she is doing fairly well. She reports intermittent headaches. She has lost about 20 pounds in weight, in an attempt to qualify for weight loss surgery. She requires a oncology evaluation and clearance prior. She has not noticed any new lymph node swelling. She denies any nausea. No new areas of back or bone pain She has recovered well from the COVID-19 infection per report Restaging imaging, from last year reviewed, no evidence of lymphadenopathy or recurrence 04/2021 - Patient was evaluated a month ago. At that time she had reported persistent weight loss. Today she reports that weight loss seems to have stabilized. She is following a strict diet, she wishes to undergo gastric bypass surgery. She requests a prescription for multivitamin. She has not noticed any lymph node swelling. She denies any episodes of chills or fevers. She remains active Partly recovered from COVID-19, still has some dyspnea Cancer Staging No matching staging information was found for the patient. Oncology History Diffuse large B-cell lymphoma of lymph nodes of multiple regions (HCC) 04/05/2018 - Initial Cancer Staged Neck ultrasound Nonspecific abnormal left-sided neck lymphadenopathy; clinical correlation requested. 04/05/2018 Biopsy LYMPH NODE, LEFT NECK-BIOPSY: - AGGRESSIVE B-CELL NON-HODGKIN LYMPHOMA. SEE COMMENT. COMMENT The differential diagnosis includes (i) Diffuse Large B-cell Lymphoma, Activated B-cell type (per Kenneth's algorithm, likely Double Expressor (see Reference) and (ii) High-Grade B-cell lymphoma with MYC and BCL-2 and/or BCL 6 rearrangements. FISH studies for rearrangements of MYC, BCL2, and BCL6 to address the differential diagnostic possibility of High-Grade B-cell lymphoma with MYC and BCL-2 and/or BCL 6 rearrangements are pending 04/11/2018 - Initial Cancer Staged CT neck 3.2 cm possible developing abscess between the left sternocleidomastoid muscle and the larynx. Clinically correlate. Chronic left submandibular and bilateral neck adenopathy. 04/11/2018 Initial Diagnosis Diffuse large B-cell lymphoma of lymph nodes of multiple regions (HCC) 04/12/2018 - Initial Cancer Staged CT chest abdomen and pelvis Bilateral axillary, bilateral external iliac, and left inguinal adenopathy. Splenomegaly with low-attenuation lesion present. New 2.2 cm left lower lobe perivascular noncalcified lung nodule. Stable right upper lobe subpleural nodule. 4 mm nonobstructing left lower pole nephrolithiasis. 04/14/2018 - Chemotherapy Cycle #1 day #1 of R CHOP chemotherapy, one of 6 planned cycles. 05/26/2018 - Chemotherapy C #3 D#1 R - CHOP standard dose 06/15/[address] CAP IMPRESSION: No adenopathy in the chest, abdomen, or pelvis. Decreased size of a 1 cm left lower lobe perivascular nodule. Decreased splenomegaly with decreased low-attenuation posterior splenic lesion posteriorly as above. Stable left lower pole nephrolithiasis. 06/16/2018 - Chemotherapy C#4 D#1 RCHOP standard dose 07/07/2018 - Chemotherapy C #5 D#1 RCHOP standard dose 07/28/2018 - Chemotherapy C #6 D#1 RCHOP standard dose 08/29/[address] Scan IMPRESSION: No PET/CT evidence of malignancy. ROS: GENERAL: No malaise, significant weight loss or fever Increased sensitivity on the left side of neck NECK: No lumps, goiter, pain or significant neck swelling MILD NECK PAIN RESPIRATORY: Increased, intermittent cough, wheezing or shortness of breath CARDIOVASCULAR: No chest pain, leg swelling or palpitations GI: No abdominal discomfort, blood in stools or black stools Nausea improved MUSCULOSKELETAL: No joint pain or swelling, HEMATOLOGY/LYMPHOLOGY No prolonged bleeding, easy bruisability or swollen nodes Other Systems review is non contributory PAST MEDICAL HISTORY: Active Ambulatory Problems Diagnosis Date Noted ? Diffuse large B-cell lymphoma of lymph nodes of multiple regions (HCC) 04/18/2018 ? Essential hypertension 04/18/2018 ? Diabetes mellitus (HCC) 04/18/2018 ? Simple chronic bronchitis (HCC) 04/18/2018 ? Obstructive sleep apnea 04/18/2018 ? Chemotherapy-induced nausea 04/18/2018 ? Pancytopenia (HCC) 04/18/2018 ? Acute cystitis without hematuria 04/18/2018 ? Anxiety 05/05/2018 ? Anemia complicating neoplastic disease 05/26/2018 ? Hypotension 05/26/2018 ? Intractable pain 08/07/2018 ? Skin rash 11/06/2018 ? Other microscopic hematuria 11/06/2018 ? Memory deficit 02/05/2019 ? Gait instability 02/05/2019 ? Other headache syndrome 02/05/2019 ? On home oxygen therapy 02/05/2019 ? COVID-19 virus infection 07/06/2019 ? Cocaine abuse, episodic use (HCC) 06/17/2010 ? Non-Hodgkin's lymphoma (HCC) 12/04/2019 ? B-cell lymphoma (HCC) 12/04/2019 ? Neck swelling 12/04/2019 ? Throat pain 04/08/2020 ? Neck pain 08/06/2020 ? Cellulitis of neck 08/06/2020 ? Cervical lymphadenopathy 08/28/2020 ? Left flank pain 10/21/2020 ? S/P TKR (total knee replacement), right 11/03/2021 Resolved Ambulatory Problems Diagnosis Date Noted ? No Resolved Ambulatory Problems No Additional Past Medical History SOCIAL HISTORY: Social History Tobacco Use ? Smoking status: Every Day Packs/day: .25 Types: Cigarettes ? Smokeless tobacco: Never Substance Use Topics ? Alcohol use: No FAMILY HISTORY: History reviewed. No pertinent family history. Current Outpatient Medications: ? albuterol (PROVENTIL HFA;VENTOLIN HFA) 108 (90 Base) MCG/ACT inhaler, Inhale 1 puff into the lungs every 4 (four) hours as needed for wheezing., Disp: , Rfl: ? amitriptyline (ELAVIL) tablet 50 mg, Take 1 tablet (50 mg total) by mouth every night at bedtime., Disp: , Rfl: ? aspirin EC 81 MG tablet, Take 1 tablet (81 mg total) by mouth daily., Disp: , Rfl: ? baclofen (LIORESAL) 10 MG tablet, Take 1 tablet (10 mg total) by mouth 3 (three) times a day., Disp: , Rfl: ? dilTIAZem (CARDIZEM CD) 120 MG 24 hr capsule, Take 1 capsule (120 mg total) by mouth daily., Disp: , Rfl: ? dulaglutide (Trulicity) 0.75 MG/0.5ML subcutaneous pen-injector, Inject under the skin., Disp: , Rfl: ? empagliflozin (JARDIANCE) tablet 10 mg, Take 1 tablet (10 mg total) by mouth daily., Disp: , Rfl: ? FLUoxetine (PROzac) 20 MG capsule, Take 1 capsule (20 mg total) by mouth daily., Disp: , Rfl: ? fluticasone (FLOVENT HFA) 110 MCG/ACT inhaler, Inhale 1 puff into the lungs 2 (two) times a day.,Disp: , Rfl: ? furosemide (LASIX) 20 MG tablet, Take 1 tablet (20 mg total) by mouth 2 (two) times a day., Disp:, Rfl: ? Gabapentin Enacarbil ER 600 MG TBCR, Take 1 tablet (600 mg total) by mouth 3 (three) times a day., Disp: , Rfl: ? insulin glargine (LANTUS) injection 100 units/mL, Inject 50 Units under the skin every night at bedtime., Disp: , Rfl: ? insulin lispro (HumaLOG) injection 100 units/mL, Inject 10 Units under the skin 3 (three) times aday with meals., Disp: , Rfl: ? metFORMIN (GLUCOPHAGE) tablet 500 mg, Take 1 tablet (500 mg total) by mouth 2 (two) times a day with meals., Disp: , Rfl: ? metoprolol tartrate (LOPRESSOR) 25 MG tablet, Take 1 tablet (25 mg total) by mouth 2 (two) times a day., Disp: , Rfl: ? montelukast (SINGULAIR) 10 MG tablet, Take 1 tablet (10 mg total) by mouth every night at bedtime., Disp: , Rfl: ? Multiple Vitamin (multivitamin) tablet, TAKE 1 TABLET BY MOUTH EVERY MORNING, Disp: 30 tablet, Rfl: 11 ? NITROGLYCERIN SL, Place 0.5 mg under the tongue continuous prn., Disp: , Rfl: ? oxyCODONE HCl (ROXICODONE) 10 MG TABS, Take 1 tablet (10 mg total) by mouth every 8 (eight) hoursas needed., Disp: 30 tablet, Rfl: 0 ? prazosin (MINIPRESS) 2 MG capsule, Take 2 capsules (4 mg total) by mouth every night at bedtime.,Disp: , Rfl: ? raNITIdine (ZANTAC) 300 MG tablet, Take 1 tablet (300 mg total) by mouth 2 (two) times a day., Disp: , Rfl: ? rosuvastatin (CRESTOR) tablet 40 mg, Take 1 tablet (40 mg total) by mouth daily., Disp: , Rfl: ? sertraline (ZOLOFT) 100 MG tablet, Take 2 tablets (200 mg total) by mouth daily., Disp: , Rfl: ? topiramate (TOPAMAX) 50 MG tablet, Take 1 tablet (50 mg total) by mouth 2 (two) times a day., Disp: , Rfl: You are allergic to the following Not on File PHYSICAL EXAM: BP 106/63 (BP Location: Right arm) Pulse 77 Temp 97.3 ??F (36.3 ??C) (Temporal) Wt 109.7 kg (241 lb 12.8 oz) SpO2 98% BMI 44.23 kg/m?? APPEARANCE: Alert and in no acute distress Stable weight EYES: PERRL, conjunctiva pink and sclera are Normal without icterus ORAL CAVITY: No erythema or exudates NECK: Neck supple, no adenopathy, Sebaceous cyst left upper part, 2 in number HEART: RRR with normal S1 and S2, no murmurs, no gallops, no JVD appreciated LUNG: clear to auscultation bilaterally Percussion note normal LYMPH NODES: No palpable superficial adenopathy ABDOMEN: Bowel sounds normoactive, no bruits, soft, non-tender, without organomegaly or palpable masses EXTREMITIES: Extremities warm and well perfused without clubbing, cyanosis, rash or edema NEURO: Oriented X 3, no focal weakness; sensation is normal Slow gait with a cane LABS: Lab work, reviewed and interpreted From recent ER visit Imaging studies, reviewed and interpreted CT Brain W - 03/02/19 - 1037 CLINICAL HISTORY: Headache with history of lymphoma. IMPRESSION: No evidence of acute intracranial hemorrhage, mass, or abnormal enhancement . If symptoms persist consider MRI for further evaluation. CT Neck W - 08/02/22 - 0803 Report Status:Signed INDICATION: NON-HODGKINS LYMPHOMA IMPRESSION: 1. No evidence of enlarged lymphadenopathy in the neck, chest, abdomen or pelvis. 2. Spleen is normal in size. CT Neck W - 09/12/23 - 1026 Report Status:Signed CT neck with IV contrast HISTORY: B-cell lymphoma COMPARISON: CT neck July 2022. TECHNIQUE: Contrast enhanced CT was performed of the neck. Reformatted images were provided. 120 mLof ISOVUE-370 IV contrast was administered for enhanced imaging. FINDINGS: Mucosal lesions are difficult to exclude on CT examination, but no discrete mass or lesion is visualized. Larynx appears within normal limits and symmetric. No significant lymphadenopathy is noted bilaterally. Only small, nonspecific lymph nodes are noted bilaterally that appear similar to the previous examination. The soft tissues appear normal. The parotid and submandibular glands appear normal and symmetric. Cervical spine appears normal. Skull base appears normal. Limited views of the brain appear within normal limits. The orbits are symmetric and appear normal.Mild mucosal thickening is noted in the maxillary sinuses. No fluid levels. Mastoid air cells are patent. Limited views of the lung apices appear within normal limits. IMPRESSION: Stable examination without evidence of recurrent disease. CT Chest W - 09/12/23 - 1026 Report Status:Signed CT chest, abdomen, and pelvis, 09/12/2023. HISTORY: B-CELL LYMPHOMA. COMPARISON: 08/02/2022. CT abdomen and pelvis 01/17/2023. CT chest 08/02/2022. TECHNIQUE: Contrast-enhanced CT of the chest, abdomen, and pelvis with coronal and sagittal reformats. IV contrast dose:120 mL ISOVUE. Dose length product: 2582 mGy-cm. FINDINGS: Lungs/pleura: Small right posterolateral tracheal diverticulum near the thoracic inlet. Airways arenormal in caliber. Bronchial wall thickening at the bases. Patchy dependent groundglass in both lungs suggestive of atelectasis. There are stable scattered small pulmonary nodules. The largest is a 4mm nodule in the inferior anterior right upper lobe, series 3 image 89. Mild patchy air trapping atthe bases. No pleural effusion or pneumothorax. Mediastinum/osbaldo: No mass or adenopathy. Thoracic vasculature: Mild atherosclerotic calcification of the aorta. Cardiac: The heart is mildly enlarged. Minimal coronary artery calcification. Chest wall: No mass or adenopathy. Liver: No focal lesion. Portal veins are patent. Biliary: Normal gallbladder and biliary tree. Pancreas: Normal. Spleen: Normal. Adrenal glands: Normal. Kidneys: 2 mm nonobstructing left lower pole renal calculus. Prominent bilateral extrarenal pelves.Normal appearance of the ureters. Retroperitoneum: No mass or adenopathy. 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 Mild multifocal atherosclerotic calcification Bowel/mesentery: Small duodenal diverticulum. No obstruction or adenopathy. No mass or ascites. Abdominal wall: Normal. Pelvic nodes: No adenopathy. Pelvic organs: Hysterectomy. Bones: Mild diffuse degenerative changes of the spine. Mild degenerative changes of the sacroiliac joints and hips. IMPRESSION: No lymphadenopathy in the chest, abdomen, or pelvis. 2 mm nonobstructing left renal calculus. IMPRESSION: SNOMED CT(R) 1. Diffuse large B-cell lymphoma of lymph nodes of multiple regions (HCC) DIFFUSE LARGE B-CELL LYMPHOMA 2. Obstructive sleep apnea OBSTRUCTIVE SLEEP APNEA SYNDROME 3. Chemotherapy-induced nausea NAUSEA 4. Pancytopenia (HCC) PANCYTOPENIA 5. Anemia complicating neoplastic disease ANEMIA IN NEOPLASTIC DISEASE 6. Memory deficit MEMORY IMPAIRMENT 7. Gait instability ABNORMAL GAIT PLAN: 58 -year-old lady with non-Hodgkin's lymphoma, aggressive B-cell lymphoma, treated from 03/2018 - 07/2018 with standards doses RCHOP #1 non-Hodgkin lymphoma, aggressive large B-cell lymphoma, standard risk, without double hit mutation She has completed 6 cycles of R CHOP regimen, from 04/14/2018 to 07/28/[address] scan shows complete response , no evidence of recurrence clinically Restaging imaging July 2023 reviewed and copy provided to her She has completed 5 years since treatment, likely achieved a cure She is not planning to the weight loss surgery anymore #2 COVID-19 infection. Recovered, and completed vaccination #3 nephrolithiasis, reports intermittent pain, follow-up with urology #4 obstructive sleep apnea, appears to be stable but contributing to her headache and memory issues #5, Recurrent COPD exacerbations, ER visit recommendations noted , Follow-up with primary care Clinic follow-up here in future as needed, patient agrees Health Care Proxy--is her daughter Art Davis MD Cc Name, MD Kiel Cc Dr. Dallas BRUNER documented in this encounter Plan of Treatment Upcoming Encounters Date Type Department Care Team (Late st Contact Info) Description 01/31/2025 9:00 AM EST Office Visit Orthopedic Surgery - [place] [address] [phone] Wesley Garcia DPM [address] [phone] documented as of this encounter Procedures Procedure Name Priority Date/Time Associated Diagnosis Comments HISTORICAL IMAGING SCAN RESULT 11/24/2023 documented in this encounter Results * HISTORICAL IMAGING SCAN RESULT (11/24/2023) Anatomical Region Laterality Modality Ultrasound us Provider Onbase MD GARAY US PROCEDURES Final Resul t documented in this encounter Visit Diagnoses Not on filedocumented in this encounter Additional Health Concerns Infection Onset Date Last Indicated Resolved Time Respiratory Rule-Out 02/05/2024 02/05/2024 024 8:09 AM EST COVID-19 Rule-Out 02/05/2024 02/05/2024 02/05/2024 8:09 AM EST documented as of this encounter Care Teams Meat Carver Relationship Specialty Start Date End Date Name, MD Kiel [address] [place], [place] PCP - General Internal Medicine 08/28/15 documented as of this encounter
--- OUTSIDE RECORDS SUMMARY | 2023-11-24 09:30 | XMS_ITS | Encounter Summary ---
Author Organization [facility] Address [address] [place] [phone] Care Team Providers Care Housekeeper Name Role Phone Name, Kiel BAILEY Primary Care Provider [phone] Encounter Details Date Type Department Care Team (Late st Contact Info) Description 11/24/2023 10:30 AM EDT Hospital Encounter TH HISTORIC ENCOUNTERS EASTERN CONVERSION ONLY Geoffrey-Art Vitale MD [address] [place] [phone] Social History Tobacco Use Types Packs/Day [...] 02/05/2024 6:47 AM Rosy New RN * [place] Suicide Severity Rating Scale (Screener/Recent Self-Report) Question [...] AM EST Office Visit Orthopedic Surgery - [place] [address] [phone] Wesley Garcia DPM [address] [phone] documented as of this encounter Visit Diagnoses Not on filedocumented in this encounter Additional Health Concerns Infection Onset Date Last Indicated Resolved Time Respiratory Rule-Out 02/05/2024 02/05/2024 024 8:09 AM EST COVID-19 Rule-Out 02/05/2024 02/05/2024 02/05/2024 8:09 AM EST documented as of this encounter Care Teams Housekeeper Relationship Specialty Start Date End Date Name, MD Kiel 4 [place], [place] PCP - General Internal Medicine 08/28/15 documented as of this encounter
--- NOTE | ~2025-01-02 | XR_ITS ---
EXAMINATION: XR HAND, LEFT CLINICAL INFORMATION: M79.642 - Pain in left hand COMPARISON: November 07, 2024. TECHNIQUE: PA, lateral, and oblique views of the left hand. FINDINGS: Joint space narrowing in the proximal distal interphalangeal joints of the digits. Degenerative changes in the radiocarpal joint and first carpometacarpal joint. Osteopenia versus osteoporosis. Focal lucency involving the hamate. No acute fracture or dislocation.. XR/XR hand LT min 3V IMPRESSION: Osteoarthrosis/osteoarthritis, moderate. Lucency, hamate bone. Electronically signed by: Felix Fall MD 01/01/2025 02:20 PM EST
--- OUTSIDE RECORDS SUMMARY | 2025-01-03 17:43 | XMS_ITS | Encounter Summary ---
Author Organization [employer] Address [address] [facility] 7t [place] [address] Care Team Providers Care Logistics System Engineer Name Role Phone Name, Kiel BAILEY Primary Care Provider [phone] Katlyn Rodriguez PharmD Unavailable Nehal Ann RN Unavailable Unavailable Ania Spencer Unavailable Opal Carrasquillo Unavailable [phone] Ania Spencer Unavailable Encounter Details Date Type Department Care Team (Late st Contact Info) Description 05/01/2024 Telephone [facility] [address] [place], [place] [phone] Name, MD Kiel [address] [place], [place] [phone] Social History Tobacco Use Types Packs/Day Years [...] 01/09/2025 9:00 AM EST Medication Management [facility] [address] [place] [address] Katlyn Rodriguez, PharmD [address] [place] [address] 01/10/2025 11:30 AM EST Office Visit [facility] [address] [place] [address] Name, MD Kiel [address] [place] [address] 02/04/2025 11:30 AM EST Clinical Support [facility] [address] [place] [address] Opal Steiner, MARINA documented as of this [...] as of this encounter Care Teams Logistics System Engineer Relationship Specialty Start Date End Date Name, MD Kiel [address] [place] [address] PCP - General Family Medicine 07/15/15 Puia, Katlyn, PharmD [address] [place] [address] Pharmacist Internal Medicine 10/08/22 Nehal Ann RN [address] [place] [address] Registered Nurse Family Medicine 08/20/24 10/29/24 Ania Spencer 08/20/24 11/26/24 Opal Carrasquillo Registered Nurse 10/29/24 11/26/24 Ania Spencer 12/14/24 12/26/24 Marta Ovalle Catering Convention Services ManagerWeb Application Developer 05/25/23 documented as of this encounter
--- OUTSIDE RECORDS SUMMARY | 2025-01-03 17:43 | XMS_ITS | Encounter Summary ---
Author Organization [employer] Address [address] [place] [address] 7t [place] [address] Care Team Providers Care Railroad Repairer Name Role Phone Name, Kiel BAILEY Primary Care Provider [phone] Katlyn Rodriguez PharmD Unavailable Nehal Ann RN Unavailable Unavailable Ania Spencer Unavailable Opal Carrasquillo Unavailable Ania Spencer Unavailable Reason for Visit * Reason Onset Date Comments Medication Problem 08/30/2023 Encounter Details Date Type Department Care Team (Late st Contact Info) Description 08/30/2023 Telephone [facility] [address] [place], [place] [phone] Name, MD Kiel [address] [place], [place] [phone] Medication Problem Social History Tobacco Use Types [...] Health Questionnaire-2 Score 0 08/21 10:30 AM ASAELT Erika Zacarias * How difficult have these problems made it for you to do your work, take care of things at home, or get along with other people? Answer Date of Assessment Author Not difficult at all 09/02/2023 10:30 AM EDT Erika Bella * Over the past 2 weeks, how [...] way Not at all 09/02/2023 10:30 AM Erika Alonzo Patient Health Questionnaire -9 Score 4 09/02/2023 [...] 01/09/2025 9:00 AM EST Medication Management [address] [address] Katlyn Rodriguez, PharmD [address] [place] [address] 01/10/2025 11:30 AM EST Office Visit [address] [address] Name, MD Kiel [address] [place] [address] 02/04/2025 11:30 AM EST Clinical Support [address] [address] Opal Steiner, MARINA documented as of this [...] documented as of this encounter Care Teams Railroad Repairer Relationship Specialty Start Date End Date Name, MD Kiel [address] [place] [address] PCP - General Family Medicine 07/15/15 Puia, Katlyn, PharmD [address] [place] [address] Pharmacist Internal Medicine 10/08/22 Nehal Ann RN [address] [place] [address] Registered Nurse Family Medicine 08/20/24 10/29/24 Ania Spencer 08/20/24 11/26/24 Opal Carrasquillo Registered Nurse 10/29/24 11/26/24 Ania Spencer 12/14/24 12/26/24 Marta Ovalle Filler Shredding Machine LoaderSpooler 05/25/23 documented as of this encounter
--- OUTSIDE RECORDS SUMMARY | 2025-01-03 17:43 | XMS_ITS | Encounter Summary ---
Author Organization [facility] Address [address] [place] [address] Care Team Providers Care Card Player Name Role Phone Name, Kiel BAILEY Primary Care Provider [phone] Encounter Details Date Type Department Care Team Description 09/10/2022 Social Work [facility] Oncology Services [address] [place] [address] Adina Archer, [facility] Social History Tobacco Use Types Packs/Day Years [...] on filedocumented in this encounter Care Teams Card Player Relationship Specialty Start Date End Date Name, MD Kiel [address] [place] [address] [address] [place] [address] PCP - General Internal Medicine 04/17/18 documented as of this encounter
--- OUTSIDE RECORDS SUMMARY | 2025-01-03 17:43 | XMS_ITS | Encounter Summary ---
Author Organization [employer] Address [address] [facility] 7t [place] [address] Care Team Providers Care Patch Sander Name Role Phone Name, Kiel BAILEY Primary Care Provider Katlyn Rodriguez PharmD Unavailable Nehal Ann RN Unavailable Unavailable Ania Spencer Unavailable Opal Carrasquillo Unavailable [phone] Ania Spencer Unavailable Reason for Visit * Reason Comments Med Refill Encounter Details Date Type Department Care Team (Late st Contact Info) Description 09/07/2023 Refill [facility] [address] [place] [address] Name, MD Kiel [address] [place] [address] Type 2 diabetes mellitus with other specified [...] 01/09/2025 9:00 AM EST Medication Management [address] [address] Katlyn Rodriguez PharmD [address] [place] [address] 01/10/2025 11:30 AM EST Office Visit [address] [address] Name, MD Kiel [address] [place] [address] 02/04/2025 11:30 AM EST Clinical Support [address] [address] Opal Steiner, RN documented as of this [...] documented as of this encounter Care Teams Patch Sander Relationship Specialty Start Date End Date Name, MD iKel [address] [place] [address] PCP - General Family Medicine 07/15/15 Katlyn Rodriguez, PharmD [address] [place] [address] Pharmacist Internal Medicine 10/08/22 Nehal Ann RN [address] [place] [address] Registered Nurse Family Medicine 08/20/24 10/29/24 Ania Spencer 08/20/24 11/26/24 Opal Carrasquillo Registered Nurse 10/29/24 11/26/24 Ania Spencer 12/14/24 12/26/24 Marta Ovalle Employee Communications ManagerChemical Detection Expert 05/25/23 documented as of this encounter
--- OUTSIDE RECORDS SUMMARY | 2025-01-03 17:43 | XMS_ITS | Encounter Summary ---
Author Organization [employer] Address [address] [place] [address] 7t [place] [address] Care Team Providers Care Senior Maintenance Mechanic Name Role Phone Name, Kiel BAILEY Primary Care Provider [phone] Katlyn Rodriguez PharmD Unavailable [phone] Nehal Ann RN Unavailable Unavailable Ania Spencer Unavailable Opal Carrasquillo Unavailable [phone] Ania Spnecer Unavailable Reason for Visit * Reason Comments Med Refill Encounter Details Date Type Department Care Team (Late st Contact Info) Description 06/27/2023 Refill [facility] [address] [place], [place] [phone] Katlyn Rodriguez, PharmD [address] [place], [place] [phone] Tobacco use disorder Social History Tobacco Use [...] Description 01/09/2025 9:00 AM EST Medication Management [address] [place] [address] [address] Katlyn Rodriguez, PharmD [address] [place] [address] 01/10/2025 11:30 AM EST Office Visit [address] [place] [address] [address] Name, MD Kiel [address] [place] [address] 02/04/2025 11:30 AM EST Clinical Support [address] [place] [address] [address] Opal Steiner RN documented as of this [...] as of this encounter Care Teams Senior Maintenance Mechanic Relationship Specialty Start Date End Date Name, MD Kiel [address] [place] [address] PCP - General Family Medicine 07/15/15 Puia, Katlyn, PharmD [address] [place] [address] Pharmacist Internal Medicine 10/08/22 Nehal Ann RN [address] [place] [address] Registered Nurse Family Medicine 08/20/24 10/29/24 Ania Spencer 08/20/24 11/26/24 Opal Carrasquillo Registered Nurse 10/29/24 11/26/24 Ania Spencer 12/14/24 12/26/24 Marta Ovalle Armament RepairerSplitter Machine 05/25/23 documented as of this encounter
--- OUTSIDE RECORDS SUMMARY | 2025-01-03 17:43 | XMS_ITS | Encounter Summary ---
Author Organization [employer] Address [address] [place] [address] 7t [place] [address] Care Team Providers Care Core Blower Name Role Phone Name, Kiel BAILEY Primary Care Provider [phone] Katlyn Rodriguez PharmD Unavailable Nehal Ann RN Unavailable Unavailable Ania Spencer Unavailable Opal Carrasquillo Unavailable [phone] Ania Spencer Unavailable Reason for Visit * Reason Onset Date Comments Reschedule 08/01/2023 Encounter Details Date Type Department Care Team (Late st Contact Info) Description 08/01/2023 Telephone [facility] [address] [place], [place] [phone] Name, MD Kiel [address] [place], [place] [phone] Reschedule Social History Tobacco Use Types Packs/Day [...] 08/01/2023 9:55 AM EDT Triage call with [employer] Servicenow Administrator Developer ID [id number] . Pt reports Covid + test this [...] 08/01/2023 9:04 AM EDT Patient cancelled todays CERTIFIED NUCLEAR MEDICINE TECHNOLOGIST RV appt today. Pt's CERTIFIED NUCLEAR MEDICINE TECHNOLOGIST appt has been rescheduled for chronic pain [...] AM EDT Tc from pt requesting r/s CERTIFIED NUCLEAR MEDICINE TECHNOLOGIST appt, stated is sick and suspect is COVID documented in this encounter Plan of Treatment Upcoming Encounters Date Type Department Care Team (Late st Contact Info) Description 01/09/2025 9:00 AM EST Medication Management [facility] [address] [place] [address] Katlyn Rodriguez, PharmD [address] [place] [address] 01/10/2025 11:30 AM EST Office Visit [facility] [address] [place] [address] Name, [place] [address] 02/04/2025 11:30 AM EST Clinical Support [address] [address] Opal Steiner, MARINA documented as of this [...] documented as of this encounter Care Teams Core Blower Relationship Specialty Start Date End Date Name, [place] [address] PCP - General Family Medicine 07/15/15 Puia, Katlyn, PharmD [address] [place] [address] Pharmacist Internal Medicine 10/08/22 Nehal Ann RN [address] [place] [address] Registered Nurse Family Medicine 08/20/24 10/29/24 Ania Spencer 08/20/24 11/26/24 Opal Carrasquillo Registered Nurse 10/29/24 11/26/24 Ania Spencer 12/14/24 12/26/24 Marta Ovalle Customer Service Representative TellerErp Developer 05/25/23 documented as of this encounter
--- OUTSIDE RECORDS SUMMARY | 2025-01-03 17:43 | XMS_ITS | Encounter Summary ---
Author Organization [employer] Address [address] [facility] 7t [place] [address] Care Team Providers Care Brake Drum Lathe Operator Name Role Phone Name, Kiel BAILEY Primary Care Provider [phone] Katlyn Rodriguez PharmD Unavailable [phone] Nehal Ann RN Unavailable Unavailable Ania Spencer Unavailable Opal Carrasquillo Unavailable Ania Spencer Unavailable Encounter Details Date Type Department Care Team (Late Contact Info) Description 03/12/2022 Orders Only [facility] CH[facility] MED & PEDS [address] [place], [place] [phone] Millie Sawant LPN Social History Tobacco Use [...] Upcoming Encounters Date Type Department Care Team ([facility] Contact Info) Description 01/09/2025 9:00 AM EST Medication Management [facility] [place] [address] Katlyn Rodriguez PharmD [facility] [place] [address] 01/10/2025 11:30 AM EST Office Visit [facility] [place] [address] Name, MD Kiel [facility] [place] [address] 02/04/2025 11:30 AM EST Clinical Support [address] [place] [address] Opal Steiner, MARINA documented as of this encounter Visit Diagnoses Not on filedocumented in this encounter Care Teams Brake Drum Lathe Operator Relationship Specialty Start Date End Date Name, MD Kiel [facility] [place] [address] PCP - General Family Medicine 07/15/15 Katlyn Rodriguez, PharmD [facility] [place] [address] Pharmacist Internal Medicine 10/08/22 Nehal Ann RN [address] [place] [address] Registered Nurse Family Medicine 08/20/24 10/29/24 Ania Spencer 08/20/24 11/26/24 Opal Carrasquillo Registered Nurse 10/29/24 11/26/24 Ania Spencer 12/14/24 12/26/24 Marta Ovalle Medical Review CoordinatorContract Attorney 05/25/23 documented as of this encounter
--- OUTSIDE RECORDS SUMMARY | 2025-01-03 17:43 | XMS_ITS | Encounter Summary ---
Author Organization [employer] Address [address] [place] [address] 7t [place] [address] Care Team Providers Care Nutrition Associate Name Role Phone Name, Kiel BAILEY Primary Care Provider [phone] Katlyn Rodriguez PharmD Unavailable [phone] Nehal Ann RN Unavailable Unavailable Ania Spencer Unavailable Opal Carrasquillo Unavailable Ania Spencer Unavailable Reason for Visit * Reason Comments Med Refill Encounter Details Date Type Department Care Team (Late st Contact Info) Description 04/15/2023 Refill [facility] MEDICINE [address] [place], [place] [phone] Yaneth Restrepo FNP [address] [place] [address] Diabetes mellitus type 2 in obese (CMS/HCC) [...] Description 01/09/2025 9:00 AM EST Medication Management [address] [address] Katlyn Rodriguez, PharmD [address] [place] [address] 01/10/2025 11:30 AM EST Office Visit [address] [address] Name, MD Kiel [address] [place] [address] 02/04/2025 11:30 AM EST Clinical Support [address] [address] Opal Steiner RN documented as of this [...] documented as of this encounter Care Teams Nutrition Associate Relationship Specialty Start Date End Date Name, MD Kiel [address] [place] [address] PCP - General Family Medicine 07/15/15 Katlyn Rodriguez PharmD [address] [place] [address] Pharmacist Internal Medicine 10/08/22 Nehal Ann RN [address] [place] [address] Registered Nurse Family Medicine 08/20/24 10/29/24 Ania Sepncer 08/20/24 11/26/24 Opal Carrasquillo Registered Nurse 10/29/24 11/26/24 Ania Spencer 12/14/24 12/26/24 Marta Ovalle Event Specialist Food DemonstratorDrill Setup Operator 05/25/23 documented as of this encounter
--- OUTSIDE RECORDS SUMMARY | 2025-01-03 17:44 | XMS_ITS | Encounter Summary ---
Author Organization [employer] Address [address] [place] [address] 7t [place] [address] Care Team Providers Care Hockey Player Name Role Phone Name, Kiel BAILEY Primary Care Provider [phone] Katlyn Rodriguez PharmD Unavailable Nehal Ann RN Unavailable Unavailable Ania Spencer Unavailable Opal Carrasquillo Unavailable Ania Spencer Unavailable Reason for Visit * Reason Comments Med Refill Encounter Details Date Type Department Care Team (Late st Contact Info) Description 07/02/2022 Refill [facility] MEDICINE [address] [place], [place] [phone] Name, MD Kiel [address] [place], [place] [phone] Chronic pain syndrome Social History Tobacco Use [...] 01/09/2025 9:00 AM EST Medication Management [address] [address] Katlyn Rodriguez PharmD [address] [place] [address] 01/10/2025 11:30 AM EST Office Visit [address] [address] Name, MD Kiel [address] [place] [address] 02/04/2025 11:30 AM EST Clinical Support [address] [address] Opal Steiner RN documented as of this encounter Visit Diagnoses Diagnosis Chronic pain syndrome documented in this encounter Care Teams Hockey Player Relationship Specialty Start Date End Date Name, MD Kiel [address] [place] [address] PCP - General Family Medicine 07/15/15 Katlyn Rodriguez PharmD [address] [place] [address] Pharmacist Internal Medicine 10/08/22 Nehal Ann, MARINA [address] [place] [address] Registered Nurse Family Medicine 08/20/24 10/29/24 Ania Spencer 08/20/24 11/26/24 Opal Carrasquillo Registered Nurse 10/29/24 11/26/24 Ania Spencer 12/14/24 12/26/24 Marta Ovalle Human Resources ConsultantSupply Manager 05/25/23 documented as of this encounter
--- OUTSIDE RECORDS SUMMARY | 2025-01-03 17:44 | XMS_ITS | Encounter Summary ---
Author Organization [employer] Address [address] [place] [address] 7t [place] [address] Care Team Providers Care Camp Tender Name Role Phone Name, Kiel BAILEY Primary Care Provider [phone] Katlyn Rodriguez PharmD Unavailable Nehal Ann RN Unavailable Unavailable Ania Spencer Unavailable Opal Carrasquillo Unavailable Ania Spencer Unavailable Encounter Details Date Type Department Care Team ([facility] Contact Info) Description 02/23/2022 Orders Only [facility] [address] [place], [place] [phone] Name, MD Kiel [address] [place], [place] [phone] Social History Tobacco Use Types Packs/Day Years [...] 01/09/2025 9:00 AM EST Medication Management [address] [phone] Katlyn Rodriguez PharmD [place], [place] 01/10/2025 11:30 AM EST Office Visit [address] [phone] Name, MD Kiel [place], [place] 02/04/2025 11:30 AM EST Clinical Support [address] [phone] Opal Steiner, MARINA documented as of this encounter Visit Diagnoses Not on filedocumented in this encounter Care Teams Camp Tender Relationship Specialty Start Date End Date Name, MD Kiel [address] [place] [address] PCP - General Family Medicine 07/15/15 Katlyn Rodriguez PharmD [address] [place] [address] Pharmacist Internal Medicine 10/08/22 Nehal Ann, MARINA [address] [place] [address] Registered Nurse Family Medicine 08/20/24 10/29/24 Ania Spencer 08/20/24 11/26/24 Opal Carrasquillo Registered Nurse 10/29/24 11/26/24 Ania Spencer 12/14/24 12/26/24 Marta Ovalle Leather CoaterTransmission Tester 05/25/23 documented as of this encounter
--- OUTSIDE RECORDS SUMMARY | 2025-01-03 17:44 | XMS_ITS | Encounter Summary ---
Author Organization [employer] Address [address] [facility] 7t [place] [address] Care Team Providers Care Template Checker Name Role Phone Name, Kiel BAILEY Primary Care Provider [phone] Katlyn Rodriguez PharmD Unavailable [phone] Ania Spencer Unavailable Reason for Visit * Reason Comments Med Refill Encounter Details Date Type Department Care Team ([facility] st Contact Info) Description 12/07/2024 Refill [facility] MEDICINE 230 [place] [address] Name, MD Kiel 230 [place] [address] Cerebellar mass; Chronic intractable headache, unspecified headache [...] Description 01/09/2025 9:00 AM EST Medication Management [address] [address] Katlyn Rodriguez PharmD [address] [place] [address] 01/10/2025 11:30 AM EST Office Visit [address] [address] Name, MD Kiel [address] [place] [address] 02/04/2025 11:30 AM EST Clinical Support [address] [address] Opal Steiner RN documented as of this [...] as of this encounter Care Teams Template Checker Relationship Specialty Start Date End Date Name, MD Kiel [address] [place] [address] PCP - General Family Medicine 07/15/15 Katlyn Rodriguez PharmD [address] [place] [address] Pharmacist Internal Medicine 10/08/22 Ania Spencer 12/14/24 12/26/24 Marta Ovalle Clinical Law ProfessorBench Chemist 05/25/23 documented as of this encounter
--- OUTSIDE RECORDS SUMMARY | 2025-01-03 17:44 | XMS_ITS | Encounter Summary ---
Author Organization [employer] Address [address] [facility] 7t [place] [address] Care Team Providers Care Bpm Solution Architect Name Role Phone Name, Kiel BAILEY Primary Care Provider [phone] Katlyn Rodriguez PharmD Unavailable Nehal Ann RN Unavailable Unavailable Ania Spencer Unavailable Opal Carrasquillo Unavailable Ania Spencer Unavailable Reason for Visit * Reason Comments Med Refill Encounter Details Date Type Department Care Team (Late st Contact Info) Description 06/08/2024 Refill [facility] CHC MED & PEDS [address] [place], [place] [phone] Name, MD Kiel 230 [place] [address] Chronic pain syndrome Social History Tobacco Use [...] the past 12 months, has t he [employer], gas, oil or water company threatened to [...] Description 01/09/2025 9:00 AM EST Medication Management [address] [address] Katlyn Rodriguez PharmD [address] [place] [address] 01/10/2025 11:30 AM EST Office Visit [address] [address] Name, MD Kiel [address] [place] [address] 02/04/2025 11:30 AM EST Clinical Support [address] [address] Opal Steiner, RN documented as of this [...] documented as of this encounter Care Teams Bpm Solution Architect Relationship Specialty Start Date End Date Name, MD Kiel [address] [place] [address] PCP - General Family Medicine 07/15/15 Puia, Katlyn, PharmD 230 [place] [address] Pharmacist Internal Medicine 10/08/22 Nehal Ann, MARINA [address] [place] [address] Registered Nurse Family Medicine 08/20/24 10/29/24 Ania Spencer 08/20/24 11/26/24 Opal Carrasquillo Registered Nurse 10/29/24 11/26/24 Ania Spencer 12/14/24 12/26/24 Marta Ovalle Machine Set Up TechnicianMillinery Worker 05/25/23 documented as of this encounter
--- OUTSIDE RECORDS SUMMARY | 2025-01-03 17:44 | XMS_ITS | Encounter Summary ---
Author Organization [employer] Address [address] [place] [address] 7t [place] [address] Care Team Providers Care Laborer Shaft Sinking Name Role Phone Name, Kiel BAILEY Primary Care Provider [phone] Katlyn Rodriguez PharmD Unavailable Nehal Ann RN Unavailable Unavailable Ania Spencer Unavailable Opal Carrasquillo Unavailable [phone] Ania Spencer Unavailable Encounter Details Date Type Department Care Team (Late st Contact Info) Description 07/01/2022 Abstract [facility] MEDICINE 230 [place], [place] [phone] Name, MD Kiel 230 [place], [place] [phone] Social History Tobacco Use Types Packs/Day Years [...] Description 01/09/2025 9:00 AM EST Medication Management [address] [phone] Katlyn Rodriguez PharmD [address] [place] [address] 01/10/2025 11:30 AM EST Office Visit [address] [phone] Name, MD Kiel [address] [place] [address] 02/04/2025 11:30 AM EST Clinical Support [address] [phone] Opal Steiner RN documented as of this [...] on filedocumented in this encounter Care Teams Laborer Shaft Sinking Relationship Specialty Start Date End Date Name, MD Kiel [address] [place] [address] PCP - General Family Medicine 07/15/15 Katlyn Rodriguez PharmD [address] [place] [address] Pharmacist Internal Medicine 10/08/22 Nehal Ann RN [address] [place] [address] Registered Nurse Family Medicine 08/20/24 10/29/24 Ania Spencer 08/20/24 11/26/24 Opal Carrasquillo Registered Nurse 10/29/24 11/26/24 Ania Spencer 12/14/24 12/26/24 Marta Ovalle Internal Medicine SpecialistFamily Consumer Scientist 05/25/23 documented as of this encounter
--- OUTSIDE RECORDS SUMMARY | 2025-01-03 17:44 | XMS_ITS | Encounter Summary ---
Author Organization [employer] Address [address] [facility] 7t [place] [address] Care Team Providers Care Donor Services Technician Name Role Phone Name, Kiel BAILEY Primary Care Provider [phone] Katlyn Rodriguez PharmD Unavailable Nehal Ann RN Unavailable Unavailable Ania Spencer Unavailable Opal Carrasquillo Unavailable Ania Spencer Unavailable Reason for Visit * Reason Comments Med Refill Encounter Details Date Type Department Care Team (Late st Contact Info) Description 06/08/2024 Refill [facility] CHC MED & PEDS [address] [place], [place] [phone] Name, MD Kiel [address] [place] [address] Chronic pain syndrome Social History Tobacco Use [...] the past 12 months, has t he [employer], gas, oil or water company threatened to [...] 01/09/2025 9:00 AM EST Medication Management [address] [address] Katlyn Rodriguez PharmD [address] [place] [address] 01/10/2025 11:30 AM EST Office Visit [address] [address] Name, MD Kiel [address] [place] [address] 02/04/2025 11:30 AM EST Clinical Support [address] [address] Opal Steiner, RN documented as of this [...] documented as of this encounter Care Teams Donor Services Technician Relationship Specialty Start Date End Date Name, MD Kiel [address] [place] [address] PCP - General Family Medicine 07/15/15 Puia, Katlyn, PharmD [address] [place] [address] Pharmacist Internal Medicine 10/08/22 Nehal Ann, MARINA [address] [place] [address] Registered Nurse Family Medicine 08/20/24 10/29/24 Ania Spencer 08/20/24 11/26/24 Opal Carrasquillo Registered Nurse 10/29/24 11/26/24 Ania Spencer 12/14/24 12/26/24 Marta Ovalle Aircraft Structural Repair MechanicAutotransfusionist 05/25/23 documented as of this encounter
--- OUTSIDE RECORDS SUMMARY | 2025-01-03 17:44 | XMS_ITS | Clinical Summary ---
Author Organization [facility] Address [address] [place] [address] Phone Care Team Providers Care Auto Body Repairer Fiberglass Name Role Phone Name, Kiel BAILEY Primary [...] Active medical supply, miscellaneous (MISCELLANEOUS MEDICAL SUPPLY [facility] [place] [place]. DEVICES (COMMODE BEDSIDE) MIS 1 Device by Does not apply route as needed (voiding/bm). 12/11/19 15 Active ASPIRIN ORAL Take 1 Tab by mouth daily. 11/28/19 15 Active lancets (Sure Comfort Lancets) 30 gauge [facility] USE TO TEST FINGER STICK BLOOD SUGAR [...] Noted Date Diagnosed Date COPD exacerbation ([facility] V24, [facility] V28) Abnormal nuclear stress test 11/06/2014 Rib fracture 12/24/2013 Overview (12/12/2023): Non displaced, probable froacture on the right ninth and tenth Abdominal pain 08/15/2013 Lipoma of abdominal wall 11/02/2011 Visual field defect 03/29/2011 Cocaine abuse, episodic use ([facility] V24, [facility] V28) 06/17/2010 Low back pain radiating to left leg 10/08/2009 Overview (12/12/2023): The patient follows with [facility] and is treated with injections to the LS. Asthmatic bronchitis , chronic ([facility] V24, [facility] V28) 07/07/2009 Overview (12/12/2023): Severe and worse in the spring. Last hospitalazion in May and 3 ER visits Hospital 08/02 Known medical problems 06/05/2009 Tobacco use disorder 06/05/2009 Hypertriglyceridemia 06/05/2009 Morbid obesity ([facility] V24, [facility] V28) 2009 Overview (12/12/2023): BMI 48.37 [...] TOTAL HYSTERECTOMY WITH BSO; COMMENT: for bleeding, [facility] Medical History Medical History Date Comments Type II or unspecified type diabetes mellitus with unspecified complication, not stated as uncontrolled DX:Type II or unspecified t ype diabetes mellitus with unspecified complication, not stated as uncontrolled Unspecified essential hypertension DX:Unspecified essential hypertension Tobacco abuse DX:Tobacco abuse RAD (reactive airway disease) DX :RAD (reactive airway disease) Morbid obesity ([facility] V24, [facility] V28) DX:Morbid obesity ([facility]) Asthmatic bronchitis , chron ic ([facility] V24, [facility] V28) 07/07/2009 DX:Asthmatic bronchitis , ch ronic ([facility]) Hypertriglyceridemia 06/05/2009 DX:Hypertri glyceridemia Rib fracture 12/24/2013 DX:Rib fracture Family History Medical History Relation Name Comments Blindness Brother 1 Breast cancer Maternal Grandmother Cataracts Maternal Grandmother Blindness Mother Glaucoma Neg Hx Macular degeneration Neg Hx Strabismus Neg Hx Relation Name Status Comments Brother 1 Brother 2 [place] Brother 3 Alive 6 brothers are diabetic [...] [facility] Contact Info) Description 01/31/2025 9:00 AM EST Office Visit [facility] [place] [address] [phone] Wesley Garcia, MOE [address] [phone] Health Maintenance Due Date Last Done Comments [...] mmol/L LAB CHEMISTRY METHOD 02/06/2024 3:36 AM [facility] Potassium 4.1 3.5 - 5.5 mmol/L LAB CHEMISTRY METHOD 02/06/2024 3:36 AM [facility] Chloride 104 96 - 110 mmol/L LAB CHEMISTRY METHOD 02/06/2024 3:36 AM [facility] CO2 23 21 - 32 mmol/L LAB CHEMISTRY METHOD 02/06/2024 3:36 AM [facility] Anion Gap 9 3 - 11 LAB CHEMISTRY METHOD 02/06/2024 3:36 AM [facility] Glucose 244(H) 70 - 100 mg/dL LAB CHEMISTRY METHOD 02/06/2024 3:36 AM [facility] BUN 17 5 - 25 mg/dL LAB CHEMISTRY METHOD 02/06/2024 3:36 AM [facility] Creatinine 0.71 0.50 - 1.10 mg/dL LAB CHEMISTRY METHOD 02/06/2024 3:36 AM [facility] eGFR 99 >=60 mL/min/1. 73m2 LAB CHEMISTRY METHOD 02/06/2024 3:36 AM EST [facility] Comment:Calculation based on the Chronic Kidney Disease Epidemiology Collaboration (CKD-EPI) equation refit without adjustment for race. BUN/Creatinine Ratio 23.9 LAB CHEMISTRY METHOD 02/06/2024 3:36 AM EST [facility] Calcium 9.3 8.5 - 10.5 mg/dL LAB CHEMISTRY METHOD 02/06/2024 3:36 AM EST [facility] Blood Venous blood specimen / Unknown Venipuncture / Unknown 02/06/2024 2:59 AM EST 02/06/2024 3:13 AM EST Result [facility] Cindy SEGURA LAB BLOOD ORDERABLES Final R esult [facility] [address] [place] [address], * (ABNORMAL) Hemoglobin A1c (11/20/2014) Pathologist [facility] Hemoglobin A1C 7.5(A) 4.0 - 6.0 % Blood Venous blood specimen / Unknown Result [facility] Historical Provider LAB BLOOD ORDERABLES Alis l Result * Urine Albumin Creatinine Ratio (05/10/2014) Pathologist [facility] Urine Albumin Creatinine Ratio abstracted Result [facility] Historical Provider HEALTH MAINTENANCE Final Result * (ABNORMAL) Lipid panel (05/10/2014) [facility] LDL/HDL Ratio 4 0 - 4 Triglycerides 360(A) 0 - 150 mg/dL Cholesterol 179 0 - 200 mg/dL HDL 42 >=40 mg/dL LDL Cholesterol 65 0 - 100 mg/dL Blood Venous blood specimen / Unknown Result [facility] Historical Provider LAB BLOOD ORDERABLES Alis l Result * Hepatitis C Screening (10/10/2013) Pathologist [facility] Hepatitis C Screening abstracted us Historical Provider HEALTH MAINTENANCE Final Result from Last 3 Months or Most Recently Relevant to Health Maintenance Insurance MEDICA[place] - [place] Advance Directives * Full Code - Default [...] currently active code status orders. Care Teams Auto Body Repairer Fiberglass Relationship Specialty Start Date End Date Name, MD Kiel [address] [place], [place] PCP - General Internal Medicine 08/28/15
--- OUTSIDE RECORDS SUMMARY | 2025-01-03 17:44 | XMS_ITS | Encounter Summary ---
Author Organization [employer] Address [address] [place] [address] 7t [place] [address] Care Team Providers Care Adoption Social Worker Name Role Phone Name, Kiel BAILEY Primary Care Provider Katlyn Rodriguez PharmD Unavailable [phone] Nehal Ann RN Unavailable Unavailable Ania Spencer Unavailable Opal Carrasquillo Unavailable Ania Spencer Unavailable Reason for Visit * Reason Comments Med Refill Encounter Details Date Type Department Care Team (Late st Contact Info) Description 02/10/2022 Refill [facility] CH[facility] MED & PEDS [address] [place] [address] Name, MD Kiel [address] [place] [address] Chronic pain syndrome (Primary Dx) Social History [...] Description 01/09/2025 9:00 AM EST Medication Management [address] [phone] Katlyn Rodriguez PharmD [address] [place] [address] 01/10/2025 11:30 AM EST Office Visit [address] [phone] Name, MD Kiel [address] [place] [address] 02/04/2025 11:30 AM EST Clinical Support [address] [address] Opal Steiner, MARINA documented as of this encounter Visit Diagnoses Diagnosis Chronic pain syndrome- Primary documented in this encounter Care Teams Adoption Social Worker Relationship Specialty Start Date End Date Name, MD Kiel [address] [place] [address] PCP - General Family Medicine 07/15/15 Katlyn Rodriguez PharmD [address] [place] [address] Pharmacist Internal Medicine 10/08/22 Nehal Ann, MARINA [address] [place] [address] Registered Nurse Family Medicine 08/20/24 10/29/24 Ania Spencer 08/20/24 11/26/24 Opal Carrasquillo Registered Nurse 10/29/24 11/26/24 Ania Spencer 12/14/24 12/26/24 Marta Ovalle Broadloom WeaverLambskin Trimmer 05/25/23 documented as of this encounter
--- OUTSIDE RECORDS SUMMARY | 2025-01-03 17:44 | XMS_ITS | Encounter Summary ---
Author Organization [employer] Address [address] [place] [address] 7t [place] [address] Care Team Providers Care Health Record Technician Name Role Phone Name, Kiel BAILEY Primary Care Provider Katlyn Rodriguez PharmD Unavailable [phone] Nehal Ann RN Unavailable Unavailable Ania Spencer Unavailable Opal Carrasquillo Unavailable [phone] Ania Spencer Unavailable Reason for Visit * Reason Comments Med Refill Encounter Details Date Type Department Care Team (Late st Contact Info) Description 04/25/2022 Refill [facility] [address] [place], [place] [phone] Name, MD Kiel [address] [place], [place] [phone] Diabetes mellitus type 2 in obese (CMS/HCC) [...] Description 01/09/2025 9:00 AM EST Medication Management [address] [address] Katlyn Rodriguez PharmD [address] [place] [address] 01/10/2025 11:30 AM EST Office Visit [address] [address] Name, MD Kiel [address] [place] [address] 02/04/2025 11:30 AM EST Clinical Support [address] [address] Opal Steiner, MARINA documented as of this encounter Visit Diagnoses Diagnosis Diabetes mellitus type 2 in obese- Primary Type II or unspecified type diabetes mellitus without mention of complication, not stated as uncontrolled documented in this encounter Care Teams Health Record Technician Relationship Specialty Start Date End Date Name, MD Kiel [address] [place] [phone] PCP - General Family Medicine 07/15/15 Katlyn Rodriguez, AngieD [address] [place] [phone] Pharmacist Internal Medicine 10/08/22 Nehal Ann, MARINA [address] [place] [phone] Registered Nurse Family Medicine 08/20/24 10/29/24 Ania Spencer 08/20/24 11/26/24 Opal Carrasquillo Registered Nurse 10/29/24 11/26/24 Ania Spencer 12/14/24 12/26/24 Marta Ovalle Fieldwork CoordinatorLarder Cook 05/25/23 documented as of this encounter
--- OUTSIDE RECORDS SUMMARY | 2025-01-03 17:44 | XMS_ITS | Encounter Summary ---
Author Organization [employer] Address [address] [place] [address] 7t [place] [address] Care Team Providers Care Paint Mixer Machine Name Role Phone Name, Kiel BAILEY Primary Care Provider [phone] Katlyn Rodriguez PharmD Unavailable Nehal Ann RN Unavailable Unavailable Ania Spencer Unavailable Opal Carrasquillo Unavailable [phone] Ania Spencer Unavailable Reason for Visit * Reason Comments Med Refill Encounter Details Date Type Department Care Team (Late st Contact Info) Description 07/16/2022 Refill [facility] MED[facility]INE [address] [place], [place] [phone] Name, MD Kiel [address] [place], [place] [phone] Chronic pain syndrome Social History Tobacco Use [...] Description 01/09/2025 9:00 AM EST Medication Management [address] [phone] Katlyn Rodriguez PharmD [address] [place] [address] 01/10/2025 11:30 AM EST Office Visit [address] [phone] Kiel Shaffer MD [address] [place] [address] 02/04/2025 11:30 AM EST Clinical Support [address] [phone] Opal Steiner, MARINA documented as of this encounter Visit Diagnoses Diagnosis Chronic pain syndrome documented in this encounter Additional Health Concerns Assessment Noted Time PHQ-9 Depression Total Score: 7 07/15/19 23 2:39 PM EDT documented as of this encounter Care Teams Paint Mixer Machine Relationship Specialty Start Date End Date Kiel Shaffer MD [address] [place] [address] PCP - General Family Medicine 07/15/15 Katlyn Rodriguez, PharmD [address] [place] [address] Pharmacist Internal Medicine 10/08/22 Nehal Ann, MARINA [address] [place] [address] Registered Nurse Family Medicine 08/20/24 10/29/24 Ania Spencer 08/20/24 11/26/24 Opal Carrasquillo Registered Nurse 10/29/24 11/26/24 Ania Spencer 12/14/24 12/26/24 Marta Ovalle Odd Jobs Day WorkerCustomer Response Representative 05/25/23 documented as of this encounter
--- OUTSIDE RECORDS SUMMARY | 2025-01-03 17:44 | XMS_ITS | Encounter Summary ---
Author Organization [employer] Address [address] [place] [address] 7t [place] [address] Care Team Providers Care Global Program Director Name Role Phone Name, Kiel BAILEY Primary Care Provider [phone] Katlyn Rodriguez PharmD Unavailable Nehal Ann RN Unavailable Unavailable Ania Spencer Unavailable Opal Carrasquillo Unavailable Ania Spencer Unavailable Reason for Visit * Reason Onset Date Comments Appointment Request 02/29/2024 Encounter Details Date Type Department Care Team (Late st Contact Info) Description 02/29/2024 Telephone [facility] [address] [place], [place] [phone] Name, MD Kiel [address] [place], [place] [phone] Appointment Request Social History Tobacco Use Types [...] different date and time. Pt does speak slovak so you will need an videotape operator. documented in this encounter Plan of Treatment Upcoming Encounters Date Type Department Care Team (Late st Contact Info) Description 01/09/2025 9:00 AM EST Medication Management [facility] [address] [place] [phone] Katlyn Rodriguez, AngieD [address] [place] [address] 01/10/2025 11:30 AM EST Office Visit [facility] [address] [place] [phone] Name, MD Kiel [address] [place] [address] 02/04/2025 11:30 AM EST Clinical Support [facility] [address] [place] [address] Opal Steiner, RN documented as of this [...] documented as of this encounter Care Teams Global Program Director Relationship Specialty Start Date End Date Name, MD Kiel [address] [place] [address] PCP - General Family Medicine 07/15/15 Puia, Katlyn, PharmD [address] [place] [address] Pharmacist Internal Medicine 10/08/22 Nehal Ann, MARINA [address] [place] [address] Registered Nurse Family Medicine 08/20/24 10/29/24 Ania Spencer 08/20/24 11/26/24 Opal Carrasquillo Registered Nurse 10/29/24 11/26/24 Ania Spencer 12/14/24 12/26/24 Marta Ovalle Stock WetterEngine Boss 05/25/23 documented as of this encounter
--- OUTSIDE RECORDS SUMMARY | 2025-01-03 17:44 | XMS_ITS | Encounter Summary ---
Author Organization [employer] Address [address] [place] [address] 7t [place] [address] Care Team Providers Care Hand Glass Cutter Name Role Phone Name, Kiel BAILEY Primary Care Provider [phone] Katlyn Rodriguez PharmD Unavailable Nehal Ann RN Unavailable Unavailable Ania Spencer Unavailable Opal Carrasquillo Unavailable Ania Spencer Unavailable Encounter Details Date Type Department Care Team (Late st Contact Info) Description 07/01/2022 Abstract [facility] MEDICINE [address] [place], [place] [phone] Name, MD Kiel [address] [place], [place] [phone] Social History Tobacco Use Types Packs/Day Years [...] 01/09/2025 9:00 AM EST Medication Management [address] [phone] Katlyn Rodriguez PharmD [address] [place] [address] 01/10/2025 11:30 AM EST Office Visit [address] [phone] Name, MD Kile [address] [place] [address] 02/04/2025 11:30 AM EST Clinical Support [address] [phone] Opal Steiner, MARINA documented as of this encounter Visit Diagnoses Not on filedocumented in this encounter Care Teams Hand Glass Cutter Relationship Specialty Start Date End Date Name, MD Kiel [address] [place] [address] PCP - General Family Medicine 07/15/15 Katlyn Rodriguez PharmD [address] [place] [address] Pharmacist Internal Medicine 10/08/22 Nehal Ann, MARINA [address] [place] [phone] Registered Nurse Family Medicine 08/20/24 10/29/24 Ania Spencer 08/20/24 11/26/24 Opal Carrasquillo Registered Nurse 10/29/24 11/26/24 Ania Spencer 12/14/24 12/26/24 Marta Ovalle Pathology TechnicianGastroenterology Nurse Practitioner 05/25/23 documented as of this encounter
--- OUTSIDE RECORDS SUMMARY | 2025-01-03 17:44 | XMS_ITS | Clinical Summary ---
Author Organization [facility] Address [address] [place] [address] Care Team Providers Care Soil Technologist Name Role Phone Name, Kiel BAILEY Primary Care Provider [phone] Allergies Active Allergy Reactions Criticality Noted Date [...] age to complete this topic Care Teams Soil Technologist Relationship Specialty Start Date End Date Name, MD Kiel [address] [facility] [address] [place] [address] PCP - General Internal Medicine 04/17/18
--- OUTSIDE RECORDS SUMMARY | 2025-01-03 17:44 | XMS_ITS | Encounter Summary ---
Author Organization [employer] Address [address] [facility] 7t [place] [address] Care Team Providers Care Channel Executive Name Role Phone Name, Kiel BAILEY Primary Care Provider [phone] Katlyn Rodriguez PharmD Unavailable [phone] Reason for Visit * Reason Comments Med Refill Encounter Details Date Type Department Care Team ([facility] Contact Info) Description 12/30/2024 Refill [facility] [address] [place] [address] Sarita Baker MD 230 [place] [address] Nondisplaced fracture of right radial styloid process, [...] 01/09/2025 9:00 AM EST Medication Management [address] [address] Katlyn Rodriguez PharmD [address] [place] [address] 01/10/2025 11:30 AM EST Office Visit [address] [address] Name, MD Kiel [address] [place] [address] 02/04/2025 11:30 AM EST Clinical Support [address] [address] Opal Steiner RN documented as of this [...] documented as of this encounter Care Teams Channel Executive Relationship Specialty Start Date End Date Name, MD Kiel 230 [place] [address] PCP - General Family Medicine 07/15/15 Katlyn Rodriguez PharmD [address] [place] [address] Pharmacist Internal Medicine 10/08/22 Marta Ovalle Dope WorkerVacuum Caster 05/25/23 documented as of this encounter
--- OUTSIDE RECORDS SUMMARY | 2025-01-03 17:44 | XMS_ITS | Encounter Summary ---
Author Organization [employer] Address [address] [place] [address] 7t [place] [address] Care Team Providers Care Certified Credit Counselor Name Role Phone Name, Kiel BAILEY Primary Care Provider [phone] Katlyn Rodriguez PharmD Unavailable [phone] Nehal Ann RN Unavailable Unavailable Ania Spencer Unavailable Opal Carrasquillo Unavailable Ania Spencer Unavailable Reason for Visit * Reason Comments Med Refill Encounter Details Date Type Department Care Team (Late st Contact Info) Description 06/28/2022 Refill [facility] MEDICINE 230 [place], [place] [phone] Name, MD Kiel [address] [place], [place] [phone] Chronic pain syndrome Social History Tobacco Use [...] 01/09/2025 9:00 AM EST Medication Management [address] [address] Katlyn Rodriguez PharmD [address] [place] [address] 01/10/2025 11:30 AM EST Office Visit [address] [address] Name, MD Kiel [address] [place] [address] 02/04/2025 11:30 AM EST Clinical Support [address] [address] Opal Steiner RN documented as of this encounter Visit Diagnoses Diagnosis Chronic pain syndrome documented in this encounter Care Teams Certified Credit Counselor Relationship Specialty Start Date End Date Name, MD Kiel [address] [place] [address] PCP - General Family Medicine 07/15/15 Katlyn Rodriguez PharmD [address] [place] [phone] Pharmacist Internal Medicine 10/08/22 Nehal Ann, MARINA [address] [place] [address] Registered Nurse Family Medicine 08/20/24 10/29/24 Ania Spencer 08/20/24 11/26/24 Opal Carrasquillo Registered Nurse 10/29/24 11/26/24 Ania Spencer 12/14/24 12/26/24 Marta Ovalle Chief Librarian BranchConstruction Stonemason 05/25/23 documented as of this encounter
--- OUTSIDE RECORDS SUMMARY | 2025-01-03 17:45 | XMS_ITS | Encounter Summary ---
Author Organization [employer] Address [address] [place] [address] 7t [place] [address] Care Team Providers Care Interactive Art Director Name Role Phone Name, Kiel BAILEY Primary Care Provider [phone] Katlyn Rodriguez PharmD Unavailable Nehal Ann RN Unavailable Unavailable Ania Spencer Unavailable Opal Carrasquillo Unavailable Ania Spencer Unavailable Reason for Visit * Reason Onset Date Comments Durable Medical Equipment 01/24/2023 Encounter Details Date Type Department Care Team (Late st Contact Info) Description 01/24/2023 Telephone [facility] MEDICINE [address] [place], [place] [phone] Name, MD Kiel [address] [place], [place] [phone] Durable Medical Equipment Social History Tobacco Use [...] to errol. Any questions, contact pt at [phone] documented in this encounter Plan of Treatment Upcoming Encounters Date Type Department Care Team (Late st Contact Info) Description 01/09/2025 9:00 AM EST Medication Management [address] [address] Katlyn Rodriguez, PharmD [address] [place] [address] 01/10/2025 11:30 AM EST Office Visit [address] [address] Name, MD Kiel [address] [place] [address] 02/04/2025 11:30 AM EST Clinical Support [address] [address] Opal Steiner, MARINA documented as of this [...] documented as of this encounter Care Teams Interactive Art Director Relationship Specialty Start Date End Date Name, MD Kiel 230 [place] [address] PCP - General Family Medicine 07/15/15 Puia, Katlyn, PharmD 230 [place] [address] Pharmacist Internal Medicine 10/08/22 Nehal Ann RN [address] [place] [address] Registered Nurse Family Medicine 08/20/24 10/29/24 Ania Spencer 08/20/24 11/26/24 Opal Carrasquillo Registered Nurse 10/29/24 11/26/24 Ania Spencer 12/14/24 12/26/24 Marta Ovalle Apple Press OperatorFireworks Assembler 05/25/23 documented as of this encounter
--- OUTSIDE RECORDS SUMMARY | 2025-01-03 17:45 | XMS_ITS | Encounter Summary ---
Author Organization [facility] Address [address] [place] [address] Phone Care Team Providers Care Dispatcher Service Name Role Phone Unavailable Primary Care Provider Unavailabl e Encounter Details Date Type Department Care Team (Latest Contact Info) Description 01/04/2020 Ancillary Orders [facility] [address] [place] [address] [place] [address] Bright Jesus, DO [address] [place] [address] Chest pain, unspecified type Social History Tobacco [...] It is not the complete legal health record.[facility]
--- OUTSIDE RECORDS SUMMARY | 2025-01-03 17:45 | XMS_ITS | Clinical Summary ---
Author Organization [facility] [facility] [employer] Address [address] [place] [address] [address] [place] [address] Care Team Providers Care Siding Coreboard Inspector Name Role Phone Name, Kiel BAILEY Primary Care Provider [phone] Katlyn Rodriguez PharmD Unavailable [phone] Allergies Active Allergy Reactions Criticality Noted [...] complication, with long-term current use of insulin ([facility]),Hypertrig lyceridemia Take 2 capsules (2 [...] complication, with long-term current use of insulin ([facility]) Inject 15 mg under the skin 1 (one) time per week. 2 mL 11 06/08/19 25 Active ezetimibe (Zetia) 10 MG tabletIndicatio ns:Type 2 diabetes mellitus with other specified complication, with long-term current use of insulin ([facility]) TAKE 1 TABLET BY MOUTH EVERY MORNING 30 tablet 11 07/24/19 25 Active cetirizine (ZyrTEC) 10 MG tablet TAKE 1 TABLET BY MOUTH EVERY MORNING 90 tablet 1 07/25/19 25 Active rosuvastatin (Crestor) 40 MG tabletIndicatio ns:Type 2 diabetes mellitus with other specified complication, with long-term current use of insulin ([facility]),History of stroke,Tobacco use disorder,Hypert riglyceridemia Take 1 tablet (40 mg) by mouth Once per day. 90 tablet 1 08/17/19 25 Active gabapentin (Neurontin) 800 MG tablet Take 1 tablet (800 mg) by mouth 3 times daily. 90 tablet 08/21/19 25 026 Active aspirin 81 MG chewable tabletIndicatio ns:Type 2 diabetes mellitus with other specified complication, with long-term current use of insulin ([facility]) Chew 1 tablet (81 mg) [...] 30 tablet 09/13/19 25 Active TechLite Pen [place] 32G X 4 MM miscIndications :Type 2 diabetes mellitus with other specified complication ([facility]) USE DIRECTED FOUR TIMES DAILY 100 each 09/29/19 25 Active Blood Glucose Monitoring Suppl (FreeStyle Lite) deviceIndicatio ns:Type 2 diabetes mellitus with other specified complication, with long-term current use of insulin ([facility]) Inject 1 each under the skin 2 times daily. Use to test blood sugar as directed 1 each 10/03/19 25 Active glucose blood (FREESTYLE LITE) test stripIndication s:Type 2 diabetes mellitus with other specified complication, with long-term current use of insulin ([facility]) Use to test blood sugar 2 times daily 50 strip 10/03/19 25 Active TRUEplus Lancets 33G miscIndications :Type 2 diabetes mellitus with other specified complication, with long-term current use of insulin ([facility]) Use to test blood sugar [...] as late effect of cerebrovascular accident ([facility]) 11/01/2024 Assessment & Plan (11/01/2024 [...] to the hospital Case was presented to [facility] emergency room Hemiparesis of left dominant side ([facility]) 07/23 Assessment & Plan (08/17/2024 1:36 PM EDT): Patient will benefit from PT evaluation and after evaluation at the hospital to be referred to acute PT center Cerebrovascular accident (CVA) ([facility]) 025 History of stroke 07/30/2024 Cerebellar mass 06/28/2024 Chronic, continuous use of opioids 11/29/2023 Overview (11/29/2023): Dx: OA knee 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: 05/03/23 Chronic pain syndrome 05/03/2023 [...] I presented the case to [facility] emergency room, patient will go [...] CPAP On nocturnal oxygen Follows with [facility] pulmonary (Bajua) Cocaine [...] for Paxlovid sent to the pharmacy -Utilized [place] drug interaction bad cloth checker to assess interactions with current med [...] Pancytopenia 04/18/2018 06/28/2024 Simple chronic bronchitis ([facility]) 04/18/2018 06/28/2024 Overview (07/14/2022): Severe and worse in the spring. Last hospitalazion in May and 3 ER visits Hospital 08/02 Acute exacerbation of chroni c obstructive airways disease with asthma ([facility]) 01/02/2018 Seizure ([facility]) 11/18/2017 06/28/2024 Anterior knee pain [...] Type Department Care Team Description 12/30/2024 [facility] [address] [address] Sarita Baker MD Nondisplaced fracture of right radial styloid process, initial encounter for closed fracture 12/26/2024 Patient Outreach [facility] [address] [place] [address] Kiel Shaffer MD Care Coordination (Communication to pt assigned CP Coordinator) 12/26/2024 Refill [facility] [address] [place] [address] Kiel Shaffer MD 12/25/2024 Orders Only GENERIC EXTERNAL DATA DEPARTMENT Provider, Generic External Data 12/25/[address] [address] Kiel Shaffer MD FYI 12/24/2024 10:40 AM EST [facility] [address] [address] Victorino Graves MD Acute pain of left shoulder (Primary Dx); Injury of left shoulder, subsequent encounter; Left-sided weakness 12/24/[address] [address] Kiel Shaffer MD Results (Pt requesting wheelchair , pt stated she's falling too much. ) 12/24/2024 Travel 12/14/[address] [address] Elsie Hall, VACUUM FORMING MACHINE OPERATOR Follow-up 12/14/2024 Patient Outreach [facility] [address] [place], [place] [phone] Kiel Shaffer MD Care Coordination (CP Care Coordination Chart Review) 12/14/2024 Patient Outreach [facility] [address] [place] [address] Kiel Shaffer MD Care Coordination ([facility] Follow up) 12/14/2024 Patient Outreach [address] [address] Kiel Shaffer MD 12/13/2024 10:40 AM EDT Office Visit [facility] [address] [address] Lorenzo Chavez MD Acute pain of left shoulder (Primary Dx); Acute pain of right knee; Nondisplaced fracture of right radial styloid process, subsequent encounter for closed fracture with delayed healing 12/13/2024 Travel 12/13/2024 Refill [facility] [address] [place] [address] Kiel hSaffer MD Cerebellar mass; Chronic intractable headache, unspecified headache type 12/10/2024 [facility]ill [facility] [address] [address] Kiel Shaffer MD 12/07/[address] [address] Kiel Shaffer MD Cerebellar mass; Chronic intractable headache, unspecified headache type 11/30/2024 Orders Only [facility] [address] [place] [address] Kiel Shaffer MD 11/27/2024 Travel 11/26/2024 Travel 11/26/2024 Patient Outreach [address] [address] Kiel Shaffer MD Care Management ([facility] TC #3-case closed) 11/15/2024 11:30 AM EDT Clinical Support [address] [address] Opal Steiner, RN Long-term current use of opiate analgesic (Primary Dx) 11/15/[address] [address] Opal Steiner, MARINA Cerebellar mass; Chronic intractable headache, unspecified headache type; Long-term current use of opiate analgesic 11/15/2024 Travel 11/12/[address] [address] Barbara Martinez MA 11/12/[address] [address] Barbara Martinez MA DecemberS 11/08/2024 Results Follow-Up [facility] [address] [place] [address] Lorenzo Chavez MD XR Hand 3+ Views Left 11/08/2024 Travel 11/06/2024 5:00 PM EDT Office Visit [facility] [address] [place] [address] Lorenzo Chavez MD Swelling of left hand (Primary Dx) 11/06/2024 Travel 11/02/2024 Results Follow-Up [facility] [address] [place] [address] Sarita Baker MD XR Shoulder 2+ Views Left 11/01/2024 1:00 PM EDT Office Visit [address] [address] Sarita Baker MD Acute bilateral low back pain without sciatica; Acute pain of left shoulder; Bilateral hand pain; Hemiparesis affecting left side as late effect of cerebrovascular accident ([facility]) 11/01/2024 Travel 11/01/[address] [address] Kiel Shaffer MD Nurse Triage 10/29/[address] [address] Katlyn Rodriguez, PharmD 10/29/2024 Travel 10/18/2024 Refill [facility] [address] [place] [address] Kiel Shaffer MD Psychophysiological insomnia 10/18/[address] [address] Lizzie Alfaro NP Cerebellar mass; Chronic intractable headache, unspecified headache type 10/17/2024 Patient Outreach [facility] [address] [place] [address] Kiel Shaffer MD Care Coordination ([facility] f/u call- LVM) 10/16/2024 Patient Outreach [facility] [address] [place], [place] [phone] Kiel Shaffer MD 10/09/2024 2:00 PM EDT Office Visit [facility] [address] [place] [address] Sarita Baker MD Essential hypertension (Primary Dx); Nondisplaced fracture of right radial styloid process, initial encounter for closed fracture 10/09/2024 Travel 10/09/[address] [address] Kiel Shaffer MD ER Follow-up; Nurse Triage 10/09/[address] [address] NameKiel MD No Show 10/06/2024 Orders Only [facility] External Provider, [facility] 10/05/[address] [address] Kiel Shaffer MD Referral 10/04/2024 Patient Outreach [address] [address] Kiel Shaffer MD Care Management ([facility] TC #2-lvm) from Last 3 Months Immunizations Immunization Administration Dates Next Due HepB-CpG 11/05/2022,10/08/2022 Influenza Injectable Quadriv alant Preservative Free IIV4 MDCK 11/05/2022 Influenza Whole 11/06/2010 Influenza injectable quadriv alent IIV4 with preservative 01/09/2016 Influenza injectable quadriv alent preservative free 11/13/2021,01/21/2021,01/07/2020,12/13,01/30/2018 Influenza, IIV3, injectable 02/03/2016,1 ,12/16/2013,02/23,11/02/2012,10/26/2011,01/13/2011 ,11/03/2010,11/21/2009 Influenza, seasonal, injecta ble, preservative free 11/27/2024,11/29/2023 Novel [id number]-[id number], all formulations 05/31/2009 Pneumococcal Conjugate PCV 20 [...] Description 01/09/2025 9:00 AM EST Medication Management [address] [address] Katlyn Rodriguez, PharmD [address] [place] [address] 01/10/2025 11:30 AM EST Office Visit [address] [address] Name, MD Kiel [address] [place] [address] 02/04/2025 11:30 AM EST Clinical Support [address] [address] Opal Steiner, MARINA Health Maintenance Due Date Last Done Comments CT Colonography 1965 FIT DNA/Cologuard 1965 FIT 1965 FOBT 1965 HIV Screening 1965 Sigmoidoscopy 1965 Hepatitis C Screening 08/22/1983 Pap Smear 1986 HPV/Cotest 08/22/1995 RSV Patients and Patients Aged 60 years or older (1 - Risk 50-74 years 1-dose series) 08/22/2015 Diabetes: Urine Protein Screening 05/25/2024 05/26/2023, 08/30/2022 [...] Screening 11/26/2025 11/26/2024 Lipid Panel 11/30/2025 11/30/2024, 04/2 09/2024, 10/25/2023, Additional history exists Tobacco Screening 12/24/2025 12/24/2024 Colonoscopy 07/02/2027 07/01/2022 Colorectal Cancer Screening 07/02/2027 DTaP/Tdap/Td Vaccines (6 - Td or Tdap) 03/30/2034 03/30/2024, 11/13/2021, 11/13/2021, Additional history exists Zoster Vaccines Completed 04/01/2022, 05/06/2021 Pneumococcal Vaccine: [...] 9:51 PM EST Narrative 12/25/2024 9:[address] [address] XRay Report Signed Patient: Sarita Puga MR#: [id number] 92 : 1965 Acct:[id number] Age/Sex: 59 / F ADM Date: 12/25/24 Loc: HO.ED Attending Dr: Ordering Physician: Ignacia Lorenzo Date of Service: 12/25/24 Procedure(s): XR shoulder LT min 2V Accession Number(s): [id number] cc: Ignacia Lorenzo; Name,Kiel BAILEY Reason for Exam: pain, trauma? CLINICAL HISTORY: pain, trauma? 3 view left shoulder Comparison: CR/WI/SR - XR SHOULDER 2 OR MORE VIEWS [...] in OV> 12/25/242151 DD/ 50 TD/TT: 12/25/242150 Animal Rides Manager: Procedure Note Donotuseinterpreter, Image - 12/25/[address] [address] XRay Report Signed Patient: Sarita Puga MMR#: [id number] 92 : 1965Acct:[id number] Age/Sex: 59 / FADM Date: 12/25/24 Loc: HO.ED Attending Dr: Ordering Physician: Ignacia Lorenzo Date of Service: 12/25/24 Procedure(s): XR shoulder LT min 2V Accession Number(s): [id number] cc: Ignacia Lorenzo; Name,Kiel BAILEY Reason for Exam: pain, trauma? CLINICAL HISTORY: pain, trauma? 3 view left shoulder Comparison: CR/WI/SR - XR SHOULDER 2 OR MORE VIEWS [...] in OV> 12/25/242151 DD/ 50 TD/TT: 12/25/242150 Animal Rides Manager: [facility] External Provider IMG XR PROCEDURES Final Result * CBC auto differential (12/25/2024 5:51 PM EST) White Blood Count 6.7 4.8 - 10.8 X10*3/uL [facility] Red Blood Count 4.86 4.20 - 5.50 X10*6/uL [facility] Hemoglobin 13.3 12.0 - 16.0 g/dl [facility] Hematocrit 40.7 37.0 - 47.0 % [facility] Mean Corpuscular Volume 83.7 80.0 - 98.0 fL [facility] Mean Corpuscular Hemoglobin 27.4 27.0 - 33.0 pg [facility] Mean Corpuscular HGB Conc 32.7 31.0 - 35.0 g/dl [facility] Red Cell Distribution Width 12.9 11.0 - 16.0 % [facility] Platelet Count 170 160 - 400 X10*3/uL [facility] Mean Platelet Volume 12.3 9.4 - 12.3 fL [facility] Neutrophils Percent Auto 56.0 45 - 73 % [facility] Imm Gran Pct Auto 0.3 0.0 - 0.4 % [facility] Lymphocytes Percent Auto 34.1 20 - 40 % [facility] Monocytes Percent Auto 7.1 2 - 11 % [facility] Eosinophils Percent Auto 1.6 0 - 4 % [facility] Basophils Percent Auto 0.9 0 - 2 % [facility] NRBC Pct Auto 0.0 0.0 - 0.2 /100WBC [facility] Neutrophils Absolute Auto 3.8 2.0 - 8.3 x10*3/uL [facility] Imm Gran Abs Auto 0.02 0.00 - 0.03 X10*3/uL [facility] Lymphocytes Absolute Auto 2.3 1.2 - 4.9 X10*3/uL [facility] Monocytes Absolute Auto 0.5 0.1 - 1.2 X10*3/uL [facility] Eosinophils Absolute Auto 0.1 0.0 - 0.4 X10*3/uL [facility] Basophils Absolute Auto 0.1 0.0 - 0.2 X10*3/uL [facility] NRBC Abs Auto 0.000 0.0 - 0.012 X10*3/uL [facility] 12/25/2024 5:51 PM EST 12/25/2024 6:01 PM EST us Generic External Data Provider LAB BLOOD ORDERAB LES Final Result [facility] [address] [place] [address] [phone] * (ABNORMAL) Comprehensive Metabolic Panel (12/25/2024 5:51 PM EST) Sodium 138 135 - 145 mmol/L [facility] Potassium 4.0 3.3 - 5.1 mmol/L [facility] Chloride 104 96 - 108 mmol/L [facility] Carbon Dioxide 27 22 - 29 mmol/L [facility] Anion Gap 11(L) 12 - 20 [facility] Urea Nitrogen (BUN) 15 9 - 16 mg/dL [facility] Creatinine, Serum 0.49(L) 0.5 - 1.4 mg/dL [facility] Creatinine Clr Calc Pharmacy 142.7 [facility] Comment:Provided height and weight: 160.02 cm,104.326 kg.eGFR (calculated from the MDRD study equation) and eCrCl(calculated from the Cockcroft-Gault equation) are based ondifferent parameters and may not yield comparable results.If eCrCl result is absurd, please check patient'sheight/weight. Estimated Glomerular Filt Rate >60 [facility] Comment:Chronic Kidney Disea se: Estimated GFR < 60 mL/min/1.66l8Tjajjz Kidney Disease: Estimated GFR < 15 mL/min/1.73m2 Glucose 138(H) 60 - 115 mg/dL [facility] Calcium 9.3 8.4 - 10.2 mg/dL [facility] Bilirubin, Total 0.3 0.0 - 1.0 mg/dL [facility] Aspartate Amino Transferase 12 5 - 31 U/L [facility] Alanine Aminotransferase 22 0 - 31 U/L [facility] Total Protein 6.8 6.5 - 8.0 g/dL [facility] Albumin Level 4.3 3.5 - 5.0 g/dL [facility] Alkaline Phosphatase 77 39 - 117 U/L [facility] 12/25/2024 5:51 PM EST 12/25/2024 6:01 PM EST us Generic External Data Provider LAB BLOOD ORDERAB LES Final Result [facility] [address] [place] [address] [phone] * XR Knee 3 Views Right (12/13/2024 12:39 PM EDT) Anatomical Region Laterality Modality Lower Extremities, Knee Right Radiogra phic Imaging 12/13/2024 12:3 9 PM EDT Narrative 12/13/2024 12:58 PM EDT [address] [address] XRay Report Signed Patient: Sarita Puga MR#: [id number] 92 : 1965 Acct:[id number] Age/Sex: 59 / F ADM Date: 12/13/24 Loc: HO.ED Attending Dr: Ordering Physician: Aurora Beltrán Date of Service: 12/13/24 Procedure(s): XR knee RT 3V Accession Number(s): [id number] cc: Name,Kiel BAILEY; Aurora Beltrán Reason for [...] 12/13/24 1255 DD/ 1239 TD/TT: 12/13/24 1246 Animal Rides Manager: SALINAS Procedure Note Donotuseinterpreter, Image - 12/13/[address] [address] XRay Report Signed Patient: Sarita Puga MMR#: [id number] 92 : 1965Acct:[id number] Age/Sex: 59 / FADM Date: 12/13/24 Loc: HO.ED Attending Dr: Ordering Physician: Aurora Beltrán Date of Service: 12/13/24 Procedure(s): XR knee RT 3V Accession Number(s): [id number] cc: Kiel Shaffer MD; Aurora Beltrán Reason [...] 12/13/24 1255 DD/ 1239 TD/TT: 12/13/24 1246 Animal Rides Manager: SALINAS [facility] External Provider IMG XR PROCEDURES Edited Result - Final * XR Lumbar Spine 2-3 Views (12/13/2024 12:38 PM EDT) Only the most recent of2 resultswithin the time period is included. Anatomical Region Laterality Modality Spine, L-spine Radiographic Diana ging 12/13/2024 12:3 8 PM EDT Narrative 12/13/2024 12:56 PM EDT [address] [address] XRay Report Signed Patient: Sarita Puga MR#: [id number] 92 : 1965 Acct:[id number] Age/Sex: 59 / F ADM Date: 12/13/24 Loc: HO.ED Attending Dr: Ordering Physician: Lacy Saucedo MD Date of Service: 12/13/24 Procedure(s): XR lumbar spine 2-3V Accession Number(s): [id number] cc: Lacy Saucedo MD; Name,Kiel BAILEY Reason [...] 12/13/24 1253 DD/ 1238 TD/TT: 12/13/24 1246 Animal Rides Manager: SALINAS Procedure Note Donotuseinterpreter, Image - 12/13/[address] [address] XRay Report Signed Patient: Sarita Puga [facility]#: [id number] 92 : 1965Acct:[id number] Age/Sex: 59 / FADM Date: 12/13/24 Loc: .ED Attending Dr: Ordering Physician: Lacy Saucedo MD Date of Service: 12/13/24 Procedure(s): XR lumbar spine 2-3V Accession Number(s): [id number] cc: Lacy Saucedo MD; Name,Kiel BAILEY Reason [...] 12/13/24 1253 DD/ 1238 TD/TT: 12/13/24 1246 Animal Rides Manager: SALINAS [facility] External Provider IMG XR PROCEDURES Edited Result - Final * MR Wrist w/o Contrast Right (12/06/2024 8:31 PM EDT) Anatomical Region Laterality Modality Upper Extremities, Wrist Right Magneti c Resonance 12/06/2024 8:31 PM EDT Narrative 12/06/2024 8:33 PM EDT [place] [address] Magnetic Resonance Report Signed Patient: Sarita Puga MR#: [id number] 92 : 1965 Acct:[id number] Age/Sex: 59 / F ADM Date: 12/06/24 Loc: HO.MRI Attending Dr: Jose SEGURA Ordering Physician: Jose Hernandez Date of Service: 12/06/24 Procedure(s): MR wrist RT wo con Accession Number(s): [id number] cc: Jose Hernandez; Name,Kiel BAILEY Reason for [...] in OV> 12/06/242032 DD/ 30 TD/TT: 12/06/242030 Animal Rides Manager: Procedure Note Donotuseinterpreter, Image - 12/06/2024 [place] [address] Magnetic Resonance Report Signed Patient: Sarita Puga [facility]#: [id number] 92 : 1965Acct:[id number] Age/Sex: 59 / FADM Date: 12/06/24 Loc: HO.MRI Attending Dr: Jose SEGURA Ordering Physician: Jose Hernandez Date of Service: 12/06/24 Procedure(s): MR wrist RT wo con Accession Number(s): [id number] cc: Jose Hernandez; Name,Kiel BAILEY Reason for [...] in OV> 12/06/242032 DD/ 30 TD/TT: 12/06/242030 Animal Rides Manager: [facility] External Provider IMG MRI PROCEDURES Final Result * Hepatic Function Panel (11/30/2024 9:56 AM EDT) Bilirubin, Total 0.5 0.0 - 1.0 mg/dL [facility] Bilirubin, Direct 0.2 0.0 - 0.5 mg/dL [facility] Aspartate Amino Transferase 23 5 - 31 U/L [facility] Comment:Slight Hemolysis.Int erpret result with caution. Alanine Aminotransferase 21 0 - 31 U/L [facility] Total Protein 6.9 6.5 - 8.0 g/dL [facility] Albumin Level 4.4 3.5 - 5.0 g/dL [facility] Alkaline Phosphatase 75 39 - 117 U/L [facility] 11/30/2024 9:56 AM EDT 11/30/2024 11:32 AM EDT Kiel Shaffer MD LAB BLOOD ORDERABLES Final Resul t [facility] [address] [place] [address] [phone] * (ABNORMAL) Lipid Panel, Standard (11/30/2024 9:56 AM EDT) Triglycerides 122 <150 mg/dL [facility] Comment:Desirable Triglyceri de: less than 150 mg/dLBorderline High Triglyceride 150-199 mg/dLHigh Triglyceride: 200-499 mg/dLVery High Triglyceride: greater than or equal to 5OO mg/dL Cholesterol 151 <200 mg/dL [facility] Comment:Desirable Cholestero l: less than 200 mg/dLBorderline High Cholesterol: 200-239 mg/dLHigh Cholesterol: greater than 239 mg/dL LDL Cholesterol Calculated 91 <100 mg/dL [facility] Comment:Desirable LDL: less than 100 mg/dLNear Optimal/Above Optimal LDL: 110- 129 mg/dLBorderline High LDL: 130-159 mg/dLHigh LDL: 160-189 mg/dLVery High LDL: greater than or equal to 190 mg/dL HDL Cholesterol 36(L) >40 mg/dL [facility] Comment:Desirable HDL: great er than 40 mg/dL Note: This HDL assay may give artificially low results in patients with liver disease. 11/30/2024 9:56 AM EDT 11/30/2024 11:32 AM EDT us Kiel Shaffer MD LAB BLOOD ORDERABLES Final Resul t [facility] [address] [place] [phone] * POCT KEELEY-14 Urine Drug Screen [...] - 11/15/2024 11:43 AM EDT UTOX cup Lot#[id number] Exp. 11/27/25 Internal Pass Control us Kiel Shaffer MD POINT OF CARE TEST ENTER/EDIT OR DERABLES Final Result * XR Hand 3+ Views Left (11/07/2024 12:00 PM EDT) Anatomical Region Laterality Modality Upper Extremities, Hand Left Radiogra [facility] 11/07/2024 12:0 0 PM EDT Narrative 11/07/2024 12:20 PM EDT [address] [address] XRay Report Signed Patient: Sarita Puga MR#: [id number] 92 : 1965 Acct:[id number] Age/Sex: 59 / F ADM Date: 11/07/24 Loc: HO.HHCX Attending Dr: Lorenzo Chavez MD Ordering Physician: oLrenzo Chavez MD Date of Service: 11/07/24 Procedure(s): XR hand LT min 3V Accession Number(s): [id number] cc: Lorenzo Chavez MD Reason for Exam: [...] 11/07/24 1217 DD/ 1200 TD/TT: 11/07/24 1202 Animal Rides Manager: Procedure Note Donotuseinterpreter, Image - 11/07/[address] [address] XRay Report Signed Patient: Sarita Puga MMR#: [id number] 92 : 1965Acct:[id number] Age/Sex: 59 / FADM Date: 11/07/24 Loc: HO.HHX Attending Dr: Lorenzo Chavez MD Ordering Physician: Lorenzo Chavez MD Date of Service: 11/07/24 Procedure(s): XR hand LT min 3V Accession Number(s): [id number] cc: Lorenzo Chavez MD Reason for Exam: [...] 11/07/24 1217 DD/ 1200 TD/TT: 11/07/24 1202 Animal Rides Manager: Lorenzo Chavez MD IMG XR PROCEDURES Edited Result - Final * XR Hand 3+ Views Right (10/06/2024 5:17 PM EDT) Anatomical Region Laterality Modality Upper Extremities, Hand Right Radiogra [facility] 10/06/2024 5:17 PM EDT Narrative 10/06/2024 5:18 PM EDT [address] [address] XRay Report Signed Patient: Sarita Puga MR#: [id number] 92 : 1965 Acct:[id number] Age/Sex: 59 / F ADM Date: 10/06/24 Loc: HO.ED Attending Dr: Ordering Physician: Justina Perez NP Date of Service: 10/06/24 Procedure(s): XR hand RT min 3V Accession Number(s): [id number] cc: Deena,Kiel BAILEY; Justina Perez NP CLINICAL [...] in OV> 10/06/241717 DD/ 16 TD/TT: 10/06/241716 Animal Rides Manager: Procedure Note Donotuseinterpreter, Image - 10/06/2024 [place] [address] XRay Report Signed Patient: Sarita Puga [facility]#: [id number] 92 : 1965Acct:[id number] Age/Sex: 59 / FADM Date: 10/06/24 Loc: HO.ED Attending Dr: Ordering Physician: Justina Perez NP Date of Service: 10/06/24 Procedure(s): XR hand RT min 3V Accession Number(s): [id number] cc: Name,Kiel BAILEY; Justina Perez NP CLINICAL [...] signed by Jojo Velasquez MD in OV> 10/06/248 DD/ 16 TD/TT: 10/06/241716 Animal Rides Manager: [facility] External Provider IMG XR PROCEDURES Edited Result - Final * XR Wrist 3+ Views Right (10/06/2024 5:12 PM EDT) Anatomical Region Laterality Modality Upper Extremities, Wrist Right Radiogr aphic Imaging 10/06/2024 5:12 PM EDT Narrative 10/06/2024 5:14 PM EDT [place] [address] XRay Report Signed Patient: Sarita Puga MR#: [id number] 92 : 1965 Acct:[id number] Age/Sex: 59 / F ADM Date: 10/06/24 Loc: HO.ED Attending Dr: Ordering Physician: Justina Perez NP Date of Service: 10/06/24 Procedure(s): XR wrist RT min 3V Accession Number(s): [id number] cc: Name,Kiel BAILEY; Justina Perez NP CLINICAL [...] signed by Jojo Velasquez MD in OV> 10/06/243 DD/ 11 TD/TT: 10/06/241711 Animal Rides Manager: Procedure Note Donotuseinterpreter, Image - 10/06/[address] [address] XRay Report Signed Patient: Sarita Puga MMR#: [id number] 92 : 1965Acct:[id number] Age/Sex: 59 / FADM Date: 10/06/24 Loc: HO.ED Attending Dr: Ordering Physician: Justina Perez NP Date of Service: 10/06/24 Procedure(s): XR wrist RT min 3V Accession Number(s): [id number] cc: Deena,Kiel BAILEY; Justina Perez NP CLINICAL [...] in OV> 10/06/241712 DD/ 11 TD/TT: 10/06/241711 Animal Rides Manager: [facility] External Provider IMG XR PROCEDURES Edited Result - Final * (ABNORMAL) POCT HGB A1C (10/02/2024 11:12 AM EDT) Hemoglobin A1C 7.5(A) 4.0 - 5.7 % Blood 10/02/2024 11:1 2 AM EDT us Kiel Shaffer MD POINT OF CARE TEST ENTER/EDIT OR DERABLES Final Result * BI Mammogram Screening Tomosynthesis Bilateral (06/03/2023 8:45 AM EDT) Anatomical Region Laterality Modality Breast Bilateral Mammography 06/03/2023 8:45 AM EDT Narrative 06/30/2023 10:24 PM EDT [address] [place] [address] Mammography Report Signed Patient: Sarita Puga MR#: [id number] 92 : 1965 Acct:[id number] Age/Sex: 57 / F ADM Date: 06/03/23 Loc: HO.MAMMO Attending Dr: Kiel Shaffer MD Ordering Physician: Kiel Shaffer MD Results: 1Negative Date of Service: 06/03/23 Follow Up: 1 Year From Orig inal Mammogram Procedure(s): MM tomosynthesis screening BI Accession Number(s): [id number] cc: Kiel Shaffer MD EXAMINATION: MM SCREENING [...] MD in OV> 06/30/230 DD/ 0845 TD/TT: Animal Rides Manager: Procedure Note Donotuseinterpreter, Image - 06/30/[address] [place] [address] Mammography Report Signed Patient: Sarita Puga MMR#: [id number] 92 : 1965Acct:[id number] Age/Sex: 57 / FADM Date: 06/03/23 Loc: [place] Attending Dr: Kiel Shaffer MD Ordering Physician: Kiel Shafferesults: 1Negative Date of Service: 06/03/23Follow Up: 1 Year From Orig inal Mammogram Procedure(s): MM tomosynthesis screening BI Accession Number(s): [id number] cc: Name,Kiel BAILEY EXAMINATION: MM SCREENING DIGITAL [...] in OV> 06/30/23 2220 DD/ 0845 TD/TT: Animal Rides Manager: Kiel Shaffer MD IM BI PROCEDURES Edited Result - Final * Albumin, Random Urine W/Creatinine (05/26/2023 8:27 AM EDT) Creatinine, Urine 185.88 mg/dL [facility] Microalbumin Urine 23.0 mg/L [facility] Microalbum Creatinine Ratio Ur 12.3 <30 ug/mg cr [facility] Comment:Albumin/Creatinine R atio Reference Ranges: Normal: < 30 ug/mg creatinine Microalbuminuria: 30 - 300 ug/mg creatinineClinical Albuminuria: > 300 ug/mg creatinine Urine (Urine, Random) 05/26/2023 8:27 AM EDT 05/26/2023 11:19 AM EDT us Kiel Shaffer MD LAB URINE ORDERABLES Final Resul t Performing Organization Address City/State/[facility] Co de Phone Number [facility] [address] [place] [phone] * Colonoscopy (07/01/2022 4:37 PM EDT) Colonoscopy Normal Normal Narrative [place] Devine - 07/01/2022 4:37 PM EDT Recommended 5 year follow up ([facility] [place]) [facility] Provider HEALTH MAINTENANCE Final Result * Diabetes Eye Exam (05/26/2022) Eye Exam Normal Normal us Dyson Name HEALTH MAINTENANCE Final Result from Last 3 Months or Most Recently Relevant to Health Maintenance Insurance [employer] C3 [employer] C[address] [place] [address] [address] [place], [place] [id number] C3 [employer]GR[employer] [address] [place] [address] [place] [address] [address] [place] [address] [place], [place] Care Teams Siding Coreboard Inspector Relationship Specialty Start Date End Date Name, MD Kiel [address] [place] [address] PCP - General Family Medicine 07/15/15 Katlyn Rodriguez PharmD [address] [place], [place] Pharmacist Internal Medicine 10/08/22 Marta Ovalle Volleyball AssemblerBillet Checker 05/25/23
--- OUTSIDE RECORDS SUMMARY | 2025-01-03 17:45 | XMS_ITS | Encounter Summary ---
Author Organization [employer] Address [address] [place] [address] 7t [place] [address] Care Team Providers Care Monitor And Storage Bin Tender Name Role Phone Name, Kiel BAILEY Primary Care Provider [phone] Katlyn Rodriguez PharmD Unavailable [phone] Nehal Ann RN Unavailable Unavailable Ania Spencer Unavailable Opal Carrasquillo Unavailable Ania Spencer Unavailable Reason for Visit * Reason Onset Date Comments Nurse Triage 07/04/2024 Encounter Details Date Type Department Care Team (Late st Contact Info) Description 07/04/2024 Telephone [facility] [address] [place], [place] [phone] Name, MD Kiel [address] [place] [address] Nurse Triage Social History Tobacco Use Types [...] 07/04/2024 11:25 AM EDT Triage call with [facility] [employer] Direction Specialist [place] [id number]. Pt reports headache over the entire head. [...] this time. Daughter is advised to call [facility] for prescription of roxicodone which [...] caller accepted this outcome. Contact pt at [phone] (albanian) documented in this encounter Plan of Treatment Upcoming Encounters Date Type Department Care Team ([facility] st Contact Info) Description 01/09/2025 9:00 AM EST Medication Management [address] [address] Puia, Katlyn, PharmD [address] [place] [address] 01/10/2025 11:30 AM EST Office Visit [address] [phone] Name, MD Kiel [address] [place] [address] 02/04/2025 11:30 AM EST Clinical Support [address] [address] Opal Steiner, MARINA documented as of this [...] documented as of this encounter Care Teams Monitor And Storage Bin Tender Relationship Specialty Start Date End Date Name, MD Kiel [address] [place] [address] PCP - General Family Medicine 07/15/15 Katlyn Rodriguez, PharmD [address] [place] [address] Pharmacist Internal Medicine 10/08/22 Nehal Ann, MARINA [address] [place] [address] Registered Nurse Family Medicine 08/20/24 10/29/24 Ania Spencer 08/20/24 11/26/24 Opal Carrasquillo Registered Nurse 10/29/24 11/26/24 Ania Spencer 12/14/24 12/26/24 Marta Ovalle Cook Helper PastryWarehouse Distribution Specialist 05/25/23 documented as of this encounter
--- OUTSIDE RECORDS SUMMARY | 2025-01-03 17:45 | XMS_ITS | Encounter Summary ---
Author Organization [employer] Address [address] [place] [address] 7t [place] [address] Care Team Providers Care Applications Developer Name Role Phone Name, Kiel BAILEY Primary Care Provider Katlyn Rodriguez PharmD Unavailable [phone] Nehal Ann RN Unavailable Unavailable Ania Spencer Unavailable Opal Carrasquillo Unavailable Ania Spencer Unavailable Encounter Details Date Type Department Care Team (Late Contact Info) Description 10/29/2022 Abstract [facility] MED[facility]INE 230 [place], [place] [phone] Name, MD Kiel [address] [place], [place] [phone] Social History Tobacco Use Types Packs/Day Years [...] 01/09/2025 9:00 AM EST Medication Management [address] [address] Katlyn Rodriguez [place]D [place] 01/10/2025 11:30 AM EST Office Visit [address] [address] Name, MD Kiel [place] 02/04/2025 11:30 AM EST Clinical Support [address] [address] Opal Steiner, MARINA documented as of this [...] Date End Date Name, MD Kiel [place], [place] PCP - General Family Medicine 07/15/15 Katlyn Rodriguez, PharmD [place], [place] Pharmacist Internal Medicine 8/18/23 Nehal Ann, RN 230 [place] [address] Registered Nurse Family Medicine 08/20/24 10/29/24 Ania Spencer 08/20/24 11/26/24 Opal Carrasquillo Registered Nurse 10/29/24 11/26/24 Ania Spencer 12/14/24 12/26/24 Marta Ovalle Data Entry Machine OperatorGold Leaf Gilder 05/25/23 documented as of this encounter
--- OUTSIDE RECORDS SUMMARY | 2025-01-03 17:45 | XMS_ITS | Encounter Summary ---
Author Organization [employer] Address [address] [place] [address] 7t [place] [address] Care Team Providers Care Dry Yard Worker Name Role Phone Name, Kiel BAILEY Primary Care Provider Katlyn Rodriguez PharmD Unavailable [phone] Nehal Ann RN Unavailable Unavailable Ania Spencer Unavailable Opal Carrasquillo Unavailable [phone] Ania Spencer Unavailable Reason for Visit * Reason Onset Date Comments FYI 08/03/2024 Encounter Details Date Type Department Care Team (Late st Contact Info) Description 08/03/2024 Telephone [facility] MED[facility] 230 [place], [place] [phone] Name, MD Kiel [address] [place], [place] [phone] FYI Social History Tobacco Use Types Packs/Day [...] any questions you can contact pt at [phone], documented in this encounter Plan of Treatment Upcoming Encounters Date Type Department Care Team (Late st Contact Info) Description 01/09/2025 9:00 AM EST Medication Management [facility] 230 [place] [address] Katlyn Rodriguez, PharmD 230 [place] [address] 01/10/2025 11:30 AM EST Office Visit [facility] [place] [address] [place] [address] 02/04/2025 11:30 AM EST Clinical Support [address] [address] Opal Steiner, MARINA documented as of this encounter Goals Goal Patient Goal Type Associated Problems Recent Progress Patient-Stated? Author Record your blood pressure once per day Blood Pressure No Puia, Katlyn, PharmD Blood Pressure < 140/90 Blood Pressure 136/87(2024 11:09 AM EST) No Puia, Aktlyn, PharmD Hemoglobin A1c < [...] documented as of this encounter Care Teams Dry Yard Worker Relationship Specialty Start Date End Date [place] [address] PCP - General Family Medicine 07/15/15 Puia, Katlyn, PharmD [address] [place] [address] Pharmacist Internal Medicine 10/08/22 Nehal Ann, MARINA [address] [place] [address] Registered Nurse Family Medicine 08/20/24 10/29/24 Ania Spencer 08/20/24 11/26/24 Opal Carrasquillo Registered Nurse 10/29/24 11/26/24 Ania Spencer 12/14/24 12/26/24 Marta Ovalle Paramedic RnTree Specialist 05/25/23 documented as of this encounter
--- OUTSIDE RECORDS SUMMARY | 2025-01-03 17:45 | XMS_ITS | Encounter Summary ---
Author Organization [employer] Address [address] [place] [address] 7t [place] [address] Care Team Providers Care Sql Tech Name Role Phone Name, Kiel BAILEY Primary Care Provider [phone] Katlyn Rodriguez PharmD Unavailable [phone] Nehal Ann RN Unavailable Unavailable Ania Spencer Unavailable Opal Carrasquillo Unavailable Ania Spencer Unavailable Reason for Visit * Reason Onset Date Comments FYI 08/03/2024 Encounter Details Date Type Department Care Team (Late st Contact Info) Description 08/03/2024 Telephone [facility] MED[facility] 230 [place], [place] [phone] Name, MD Kiel 230 [place], [place] [phone] FYI Social History Tobacco Use Types Packs/Day [...] - 08/03/2024 2:00 PM EDT Tc from [facility] with N stating pt has an upcoming appointment with pcp and would like to report: 1) Pt was discharged yesterday 08/02. Reason: COPD. 2) F/u Left ear symptoms. Pt unable to hear. 3) F/u pull up prescription. Any questions contact [facility] [phone] documented in this encounter Plan of Treatment Upcoming Encounters Date Type Department Care Team (Late st Contact Info) Description 01/09/2025 9:00 AM EST Medication Management [address] [phone] Puia, Katlyn, PharmD [address] [place] [address] 01/10/2025 11:30 AM EST Office Visit [address] [address] Name, MD Kiel [address] [place] [address] 02/04/2025 11:30 AM EST Clinical Support [address] [phone] Opal Steiner RN documented as of this [...] documented as of this encounter Care Teams Sql Tech Relationship Specialty Start Date End Date Name, MD Kiel [address] [place] [phone] PCP - General Family Medicine 07/15/15 Puia, Katlyn, PharmD [address] [place] [address] Pharmacist Internal Medicine 10/08/22 Nehal Ann, RN [address] [place] [address] Registered Nurse Family Medicine 08/20/24 10/29/24 Ania Spencer 08/20/24 11/26/24 Opal Carrasquillo Registered Nurse 10/29/24 11/26/24 Ania Spencer 12/14/24 12/26/24 Marta Ovalle SedimentationistSand Analyst 05/25/23 documented as of this encounter
--- OUTSIDE RECORDS SUMMARY | 2025-01-03 17:45 | XMS_ITS | Encounter Summary ---
Author Organization [facility] Address [address] [place] [address] Phone Care Team Providers Care Metallurgical Analyst Name Role Phone Unavailable Primary Care Provider Unavailabl e Encounter Details Date Type Department Care Team (Late st Contact Info) Description 01/04/2020 Procedure Pass [facility] [address] [place] [address] [place], [place] [phone] Social History Tobacco Use Types Packs/Day Years [...] It is not the complete legal health record.[facility]
--- OUTSIDE RECORDS SUMMARY | 2025-01-03 17:45 | XMS_ITS | Encounter Summary ---
Author Organization [employer] Address [address] 7t [place] [address] Care Team Providers Care Hydrocrane Operator Name Role Phone Name, Kiel BAILEY Primary Care Provider Katlyn Rodriguez PharmD Unavailable Ania Spencer Unavailable Opal Carrasquillo Unavailable Ania Spencer Unavailable Encounter Details Date Type Department Care Team (Late st Contact Info) Description 11/08/2024 Results Follow-Up [facility] 230 [place] [address] Lorenzo Chavez MD 230 [place] [address] XR Hand 3+ Views Left Social History [...] 01/09/2025 9:00 AM EST Medication Management [address] [address] Katlyn Rodriguez PharmD [address] [place] [address] 01/10/2025 11:30 AM EST Office Visit [address] [address] Name, MD Kiel [address] [place] [address] 02/04/2025 11:30 AM EST Clinical Support [address] [address] Opal Steiner, MARINA documented as of this encounter Goals Goal Patient Goal Type Associated Problems Recent Progress Patient-Stated? Author Record your blood pressure once per day Blood Pressure No Katlny Rodriguez PharmSusan Blood Pressure < 140/90 Blood [...] documented as of this encounter Care Teams Hydrocrane Operator Relationship Specialty Start Date End Date Name, MD Kiel [address] [place] [address] PCP - General Family Medicine 07/15/15 PuKatlyn albert, PharmD 230 [place] [address] Pharmacist Internal Medicine 10/08/22 Ania Spencer 08/20/24 11/26/24 Opal Carrasquillo Registered Nurse 10/29/24 11/26/24 Ania Spencer 12/14/24 12/26/24 Marta Ovalle Prototype Engineer ManagerGraining Press Operator 05/25/23 documented as of this encounter
--- OUTSIDE RECORDS SUMMARY | 2025-01-03 17:45 | XMS_ITS | Encounter Summary ---
Author Organization [employer] Address [address] [place] [address] 7t [place] [address] Care Team Providers Care Public Policy Manager Name Role Phone Name, Kiel BAILEY Primary Care Provider Katlyn Rodriguez PharmD Unavailable Nehal Ann RN Unavailable Unavailable Ania Spencer Unavailable Opal Carrasquillo Unavailable [phone] Ania Spencer Unavailable Reason for Visit * Reason Onset Date Comments Durable Medical Equipment 12/06/2022 Encounter Details Date Type Department Care Team (Late st Contact Info) Description 12/06/2022 Telephone [facility] MED[facility]INE [address] [place], [place] [phone] Name, MD Kiel [address] [place], [place] [phone] Durable Medical Equipment Social History Tobacco Use [...] to message above. Please contact pt at [phone] (Botswanan) * Telephone Encounter - Jean-Paul Finch - 12/06/2022 3:29 PM EDT Tc from pt requesting status on some bed absorbant pads to not stain bed. Please contact pt at [phone] Botswanan Speaker documented in this encounter Plan of Treatment Upcoming Encounters Date Type Department Care Team (Late st Contact Info) Description 01/09/2025 9:00 AM EST Medication Management [facility] MEDICINE [address] [place] [address] Puia, Katlyn, [place] [address] 01/10/2025 11:30 AM EST Office Visit [address] [address] Name, MD Kiel [place] 02/04/2025 11:30 AM EST Clinical Support [address] [address] Opal Steiner RN documented as of this [...] documented as of this encounter Care Teams Public Policy Manager Relationship Specialty Start Date End Date Name, [place] [address] PCP - General Family Medicine 07/15/15 Puia, Katlyn, PharmD [address] [place] [address] Pharmacist Internal Medicine 10/08/22 Nehal Ann, MARINA [address] [place] [address] Registered Nurse Family Medicine 08/20/24 10/29/24 Ania Spencer 08/20/24 11/26/24 Opal Carrasquillo Registered Nurse 10/29/24 11/26/24 Ania Spencer 12/14/24 12/26/24 Marta Ovalle Cnc Machine OperatorCheese Tester 05/25/23 documented as of this encounter
--- OUTSIDE RECORDS SUMMARY | 2025-01-03 17:45 | XMS_ITS | Encounter Summary ---
Author Organization [employer] Address [address] 7t [place] [address] Care Team Providers Care Welding Machine Assembler Name Role Phone Name, Kiel BAILEY Primary Care Provider [phone] Katlyn Rodriguez PharmD Unavailable Nehal Ann RN Unavailable Unavailable Ania Spencer Unavailable Opal Carrasquillo Unavailable Ania Spencer Unavailable Encounter Details Date Type Department Care Team (Late st Contact Info) Description 02/20/2024 Telephone [facility] [address] [place], [place] [phone] Name, MD Kiel [address] [place] [address] Social History Tobacco Use Types Packs/Day Years [...] Description 01/09/2025 9:00 AM EST Medication Management [address] [address] Katlyn Rodriguez PharmD [address] [place] [address] 01/10/2025 11:30 AM EST Office Visit [address] [address] Name, MD Kiel [address] [place] [address] 02/04/2025 11:30 AM EST Clinical Support [address] [address] Opal Steiner, MARINA documented as of this [...] documented as of this encounter Care Teams Welding Machine Assembler Relationship Specialty Start Date End Date Name, MD Kiel [address] [place] [address] PCP - General Family Medicine 07/15/15 PuiaReidKatlyn, PharmD [address] [place] [address] Pharmacist Internal Medicine 10/08/22 Nehal Ann, MARINA [address] [place] [address] Registered Nurse Family Medicine 08/20/24 10/29/24 Ania Spencer 08/20/24 11/26/24 Opal Carrasquillo Registered Nurse 10/29/24 11/26/24 Ania Spencer 12/14/24 12/26/24 Marta Ovalle Timber EstimatorMachinist Bench 05/25/23 documented as of this encounter
--- OUTSIDE RECORDS SUMMARY | 2025-01-03 17:45 | XMS_ITS | Encounter Summary ---
Author Organization [employer] Address [address] [place] [address] 7[place] [address] Care Team Providers Care Handle Turner Name Role Phone Name, Kiel BAILEY Primary Care Provider [phone] Katlyn Rodriguez PharmD Unavailable Nehal Ann RN Unavailable Unavailable Ania Spencer Unavailable Opal Carrasquillo Unavailable Ania Spencer Unavailable Reason for Referral * Consultation (Routine) - Closed Specialty Diagnoses / Procedures Referred By Carroll hoover Referred To Contact Occupational Therapy Diagnoses Left arm weakness Lizzie Alfaro NP [address] [place] [address] Phone: tel: fax: [facility] [place] Physical Therapy [address] [place] [address] Phone: tel: fax: Referral ID Status Reason Start Date Expiration Date V isits Requested Visits Authorized [id number] Closed Specialty Services Required 09/06/2024 09/06/2025 20 20 Encounter Details Date Type Department Care Team (Late st Contact Info) Description 09/06/2024 Orders Only [facility] MEDICINE [address] [place] [address] Lizzie Alfaro NP [address] [place] [address] Left arm weakness (Primary Dx) Social History [...] 9:00 AM EST Medication Management [facility] MEDICINE [address] [place] [address] Katlyn Rodriguez, PharmD 230 [place] [address] 01/10/2025 11:30 AM EST Office Visit [address] [address] Name, MD Kiel [address] [place] [address] 02/04/2025 11:30 AM EST Clinical Support [address] [address] Opal Steiner, MARINA Scheduled Referrals Name Type [...] documented as of this encounter Care Teams Handle Turner Relationship Specialty Start Date End Date Name, MD Kiel [address] [place] [address] PCP - General Family Medicine 07/15/15 Puia, Katlyn, PharmD [address] [place] [address] Pharmacist Internal Medicine 10/08/22 Nehal Ann RN [address] [place] [address] Registered Nurse Family Medicine 08/20/24 10/29/24 Ania Spencer 08/20/24 11/26/24 Opal Carrasquillo Registered Nurse 10/29/24 11/26/24 Ania Spencer 12/14/24 12/26/24 Marta Ovalle Aviation Maintenance InstructorMedical Secretary Teacher 05/25/23 documented as of this encounter
--- OUTSIDE RECORDS SUMMARY | 2025-01-03 17:45 | XMS_ITS | Encounter Summary ---
Author Organization [employer] Address [address] [place] [address] [address] [place] [address] Care Team Providers Care Local Government Legislator Name Role Phone Name, Kiel BAILEY Primary Care Provider [phone] Katlyn Rodriguez PharmD Unavailable [phone] Nehal Ann RN Unavailable Unavailable Ania [place] Unavailable Opal Carrasquillo Unavailable [phone] Ania [place] Unavailable Reason for Referral * Consultation (Routine) - Closed Specialty Diagnoses / Procedures Referred By Contac t Referred To Contact Occupational Therapy Diagnoses Weakness of both lower extremities Hemiparesis of left dominant side as late effect of cerebral infarction (CMS/HCC) (HCC) Lizzie Alfaro NP [address] [place] [address] Phone: tel: fax: [facility] Physical [facility] [address] [place] [address] Phone: tel: fax: Referral ID Status Reason Start Date Expiration Date V isits Requested Visits Authorized [id number] Closed Specialty Services Required 09/06/2024 09/06/2025 20 20 * Consultation (Routine) - Closed Specialty Diagnoses / Procedures Referred By Contac t Referred To Contact Physical Therapy Diagnoses Weakness of both lower extremities Lizzie Alfaro NP [address] [place] [address] Phone: tel: fax: [facility] Physical Therapy [address] [place], [place] Phone: tel: fax: Referral ID Status Reason Start Date Expiration Date V isits Requested Visits Authorized [id number] Closed Specialty Services Required 09/06/2024 09/06/2025 20 20 Encounter Details Date Type Department Care Team (Late st Contact Info) Description 09/06/2024 Orders Only [facility] [address] [place] [address] Lizzie Alfaro NP [address] [place], [place] [phone] Weakness of both lower extremities (Primary Dx); [...] 01/09/2025 9:00 AM EST Medication Management [address] [address] PuiaKatlyn, PharmD [address] [place] [id number] 01/10/2025 11:30 AM EST Office Visit [address] [id number] Name, MD Kiel [address] [place] [id number] 02/04/2025 11:30 AM EST Clinical Support [address] [address] Opal Steiner, MARINA Scheduled Referrals Name Type [...] documented as of this encounter Care Teams Local Government Legislator Relationship Specialty Start Date End Date Name, MD Kiel [address] [place] [address] PCP - General Family Medicine 07/15/15 Katlyn Rodriguez, PharmD [address] [place] [address] Pharmacist Internal Medicine 10/08/22 Nehal Ann, MARINA [address] [place] [address] Registered Nurse Family Medicine 08/20/24 10/29/24 Ania [place] 08/20/24 11/26/24 Opal Carrasquillo Registered Nurse 10/29/24 11/26/24 Ania [place] 12/14/24 12/26/24 Marta Ovalle Inpatient Services RnRaisin Separator Operator 05/25/23 documented as of this encounter
--- OUTSIDE RECORDS SUMMARY | 2025-01-03 17:45 | XMS_ITS | Encounter Summary ---
Author Organization [employer] Address [address] [facility] [address] [place] [address] Care Team Providers Care Greenskeeper Supervisor Name Role Phone Name, Kiel BAILEY Primary Care Provider [phone] Katlyn Rodriguez PharmD Unavailable [phone] Nehal Ann RN Unavailable Unavailable Ania [place] Unavailable Opal Carrasquillo Unavailable [phone] Ania [place] Unavailable Encounter Details Date Type Department Care Team (Late st Contact Info) Description 08/26/2022 Orders Only [facility] [address] [place] [address] Leia Gonzales LPN Social History Tobacco Use [...] 9:00 AM EST Medication Management [facility] [place] [address] Katlyn Rodriguez PharmD [facility] [place] 01/10/2025 11:30 AM EST Office Visit [address] [place] [address] Name, MD Kiel [facility] [place] 02/04/2025 11:30 AM EST Clinical Support [facility] [place] [address] Opal Steiner, MARINA documented as of this encounter Visit Diagnoses Not on filedocumented in this encounter Additional Health Concerns Assessment Noted Time PHQ-9 Depression Total Score: 7 07/15/19 23 2:39 PM EDT documented as of this encounter Care Teams Greenskeeper Supervisor Relationship Specialty Start Date End Date Name, MD Kiel [facility] [place] [address] PCP - General Family Medicine 07/15/15 Katlyn Rodriguez, [place] [address] Pharmacist Internal Medicine 10/08/22 Nehal Ann, MARINA [address] [place] [id number] Registered Nurse Family Medicine 08/20/24 10/29/24 Ania [place] 08/20/24 11/26/24 Opal Carrasquillo Registered Nurse 10/29/24 11/26/24 Ania [place] 12/14/24 12/26/24 Marta Ovalle Clothes DesignerMetal Bumper 05/25/23 documented as of this encounter
--- OUTSIDE RECORDS SUMMARY | 2025-01-03 17:45 | XMS_ITS | Clinical Summary ---
Author Organization [facility] Address [address] [place] [address] [place] [address] Phone Care Team Providers Care Dry Room Operator Name Role Phone Unavailable Primary Care [...] Devices Not on file Insurance [employer] [place] [address] [place] [address] [place] [address] [place] [address] [place] [address] [place] [address] [place] [address] [place] [address] [employer] Additional Source Comments The information contained in this document represents components of the legal health record. It is not the complete legal health record.[facility]
== END 2025-01-02 14:21 | disposition home or self-care (01) ==
LOC: HO.HOSX 14:20
PROVIDERS: Visit Provider Orthopaedic Surgery
DX: M79.642 Pain in left hand (principal)
CPT/HCPCS: 73130

== ENCOUNTER 2025-01-08 15:14 | Emergency (ER) | payer MEDICAID, SELFPAY ==
--- OUTSIDE RECORDS SUMMARY | 2023-11-24 08:53 | XMS_ITS | Encounter Summary ---
Author Organization [facility] Address [address] [place] [address] Care Team Providers Care Faucet Polisher Name Role Phone Name, Kiel BAILEY Primary Care Provider [phone] Encounter Details Date Type Department Care Team (Late st Contact Info) Description 11/24/2023 9:53 AM EDT Hospital Encounter TH HISTORIC ENCOUNTERS EASTERN CONVERSION ONLY Geoffrey-Art Vitale MD [address] [place] [phone] Social History Tobacco Use Types Packs/Day [...] 02/05/2024 6:47 AM Rosy New RN * [place] Suicide Severity Rating Scale (Screener/Recent Self-Report) Question [...] MD at 11/24/2023 10:30 AM Author: Art Davsi MD Service: -- Author Type: Physician Filed: 11/24/2023 2:17 PM Encounter Date: 11/24/2023 Status: Signed Senior Communications Specialist: Art Davis MD (Physician) CHIEF COMPLAINT: Chief Complaint Patient presents with ? Follow-up Diffuse large B-cell lymphoma Stage III Completed 6 cycles of R-CHOP in July 23, 2018 IDENTIFIER:Sarita Puga is a 58 y.o. female. HPI: The patient returns for follow up of Large B-cell lymphoma. Here with her daughter , who is wolof to citizen of vanuatu language assistant Patient reports that she has been doing [...] accompanied by her daughter and girlfriend. As Jordanian to Mohawk language assistant assisted with the discussion. She had a [...] AM EST Office Visit Orthopedic Surgery - [place] [address] [phone] Wesley Gracia DPM [address] [phone] documented as of this encounter Procedures Procedure [...] documented as of this encounter Care Teams Faucet Polisher Relationship Specialty Start Date End Date Name, MD Kiel 4 [place], [place] PCP - General Internal Medicine 08/28/15 documented as of this encounter
--- OUTSIDE RECORDS SUMMARY | 2023-11-24 09:30 | XMS_ITS | Encounter Summary ---
Author Organization [facility] Address [address] [place] [phone] Care Team Providers Care Service Provider Name Role Phone Name, Kiel BAILEY Primary Care Provider [phone] Encounter Details Date Type Department Care Team (Late st Contact Info) Description 11/24/2023 10:30 AM EDT Hospital Encounter TH HISTORIC ENCOUNTERS EASTERN CONVERSION ONLY Geoffrey-Art Vitale MD [address] [place] [phone] Social History Tobacco Use Types Packs/Day [...] 02/05/2024 6:47 AM Rosy New RN * [place] Suicide Severity Rating Scale (Screener/Recent Self-Report) Question [...] AM EST Office Visit Orthopedic Surgery - [place] [address] [phone] Wesley Garcia DPM [address] [phone] documented as of this encounter Visit Diagnoses Not on filedocumented in this encounter Additional Health Concerns Infection Onset Date Last Indicated Resolved Time Respiratory Rule-Out 02/05/2024 02/05/2024 024 8:09 AM EST COVID-19 Rule-Out 02/05/2024 02/05/2024 02/05/2024 8:09 AM EST documented as of this encounter Care Teams Service Provider Relationship Specialty Start Date End Date Name, MD Kiel 4 [place], [place] PCP - General Internal Medicine 08/28/15 documented as of this encounter
--- NOTE | ~2025-01-08 | XR_ITS ---
EXAMINATION: XR CHEST CLINICAL INFORMATION: CP COMPARISON: 08/17/2024. TECHNIQUE: 2 views of the chest were obtained. FINDINGS: Borderline cardiac enlargement. Mediastinal and hilar contours appear normal. Aortic mural calcifications. The lungs appear clear bilaterally. There is no pneumothorax or pleural effusion. There is no focal osseous or soft tissue abnormality. XR/XR chest 2V IMPRESSION: No active pulmonary disease. No interval change. Electronically signed by: Flavio Simms MD 01/08/2025 04:29 PM EST
--- NOTE | 2025-01-08 15:15 | ECG_ITS ---
Test Reason : sob cp Blood Pressure : */* mmHG Vent. Rate : 76 BPM Atrial Rate : 76 BPM P-R Int : 148 ms QRS Dur : 84 ms QT Int : 368 ms P-R-T Axes : 22 -17 -3 degrees QTcB Int : 414 ms Normal sinus rhythm Moderate voltage criteria for LVH, may be normal variant ( R in aVL , [place] product ) Borderline ECG When compared with ECG of 17-Aug-2024 10:21, Nonspecific T wave abnormality no longer evident in Anterior leads Referred By: Aurora Beltrán Electronically Signed By: SIOMARA CARLTON
[2025-01-08 15:33] VITALS: BP 125/82; PULSE 72; RESP 18; TEMP 36.6; O2SAT 97; BMI 41.8
--- NOTE | 2025-01-08 15:45 | ED.CHESTPAIN ---
HPI - Chest Pain General Chief Complaint: Chest Pain Stated Complaint: chest pain, SOB Time Seen by Provider: 01/08/25 20:20 Source: patient Mode of arrival: ambulatory Limitations: language barrier ( [employer] services utilized) History of Present Illness ED Provider: Flavio SEGURA HPI narrative: The patient is a 59-year-old female with a history of diabetes, CVA with residual left-sided deficit, tobacco dependency, COPD, migraines, hyperlipidemia, DRE, GERD, IBS, morbid obesity, and depression, presenting to the ED for evaluation of chest pain described as a tightness with the associated shortness of breath and a nonproductive cough which all began at 02:00 today. The patient reports she took Tylenol without relief, reports she used her nebulizer machine with mild relief, denies using rescue inhalers. The patient Reports associated headache, denies associated fever/ chills, nausea, vomiting, diarrhea, abdominal pain, pleurisy, hemoptysis, or recent sick contacts. The patient also reports frequent falls since her CVA in March with residual deficit, reports she fell 2 weeks ago, since that time has had left shoulder pain and hand swelling. Chart review reveals patient had imaging of the shoulder and hand at that time, which were negative for acute injury. The patient admits she is still an active smoker despite CVA and COPD history. Related Data Home Medications ?Medication ?Instructions ?Recorded ?Confirmed montelukast 10 mg tablet 10 mg PO BEDTIME 02/13/20 10/03/24 (Singulair) paroxetine HCl 40 mg tablet 40 mg PO BEDTIME 12/05/20 10/03/24 pen needle, diabetic 32 gauge x #50 ea 12/05/20 10/03/24 (Pentips Pen Needle) insulin glargine 100 unit/mL (3 36 unit subcut DAILY 05/26/21 10/03/24 mL) subcutaneous pen (Lantus Solostar U-100 Insulin) gabapentin 600 mg tablet 600 mg PO TID PRN Pain 04/21/22 10/03/24 lidocaine 5 % topical patch 1 patch topical DAILY PRN Pain 04/21/22 10/03/24 metoprolol succinate 25 mg 25 mg PO BEDTIME 04/21/22 10/03/24 tablet,extended release 24 hr oxcarbazepine 300 mg tablet 450 mg PO BEDTIME 04/21/22 10/03/24 clonidine HCl 0.1 mg tablet 0.1 mg PO BEDTIME 07/08/22 10/03/24 atorvastatin 80 mg tablet 80 mg PO BEDTIME 01/05/23 10/03/24 metformin 500 mg tablet,extended 500 mg PO BEDTIME 01/05/23 10/03/24 release 24 hr acetaminophen 650 mg 650 mg PO Q8H PRN Mild Pain (Scale 06/18/24 10/03/24 tablet,extended release Score 1-4) albuterol sulfate 2.5 mg/3 mL 2.5 mg inhalation Q4H PRN 06/18/24 10/03/24 (0.083 %) solution for nebulization shortness of breath or wheezing albuterol sulfate 90 mcg/actuation 2 puff inhalation Q4H PRN wheezing 06/18/24 10/03/24 aerosol inhaler (Ventolin HFA) baclofen 10 mg tablet 10 mg PO TID PRN muscle spasm 06/18/24 10/03/24 calcium 600 mg (as 1 tab PO BID 06/18/24 10/03/24 carbonate)-vitamin D3 5 mcg (200 unit) tablet cetirizine 10 mg tablet (Zyrtec) 10 mg PO DAILY 06/18/24 10/03/24 ezetimibe 10 mg tablet 10 mg PO DAILY 06/18/24 10/03/24 famotidine 20 mg tablet 20 mg PO BID 06/18/24 10/03/24 furosemide 20 mg tablet 20 mg PO DAILY 06/18/24 10/03/24 icosapent ethyl 1 gram capsule 2 g PO BID 06/18/24 10/03/24 losartan 50 mg tablet 50 mg PO DAILY 06/18/24 10/03/24 meloxicam 7.5 mg tablet 7.5 mg PO DAILY 06/18/24 10/03/24 oxcarbazepine 150 mg tablet 150 mg PO DAILY 06/18/24 10/03/24 tirzepatide 15 mg/0.5 mL 15 mg subcut FR 06/18/24 10/03/24 subcutaneous pen injector (Lurdes) trazodone 100 mg tablet 100 mg PO BEDTIME PRN insomnia 06/18/24 10/03/24 Previous Rx's ?Medication ?Instructions ?Recorded oxycodone 10 mg tablet 10 mg PO DAILY PRN headache #30 04/30/25 tabs fluticasone propionate 115 2 puff inhalation Q12H ASTHMA/COPD 09/12/24 mcg-salmeterol 21 mcg/actuation 30 days #12 grams HFA inhaler (Advair HFA) ibuprofen 600 mg tablet 600 mg PO Q6H PRN pain #12 tabs 10/06/24 pyridoxine (vitamin B6) 100 mg 100 mg PO DAILY 90 days #90 tabs 11/12/24 tablet ipratropium 20 mcg-albuterol 100 1 puff PO Q6H #4 grams 11/21/24 mcg/actuation mist for inhalation (Combivent Respimat) methocarbamol 750 mg tablet 750 mg PO BEDTIME #7 tabs 12/25/24 azithromycin 250 mg tablet See Rx Instructions PO .COMPLEX #6 01/08/25 (Zithromax Z-Wilmer) tabs prednisone 20 mg tablet 60 mg (3 x 20 mg) PO DAILY 5 days 01/08/25 #15 tabs Allergies Allergy/AdvReac Type Severity Reaction Status Date / Time penicillin G (Penicillin G) Allergy Mild SWELLING Verified 01/08/25 15:34 barium sulfate (ORAL Allergy Unknown HIVES Verified 01/08/25 15:34 CONTRAST) cephalexin Allergy Unknown Unknown Verified 01/08/25 15:34 Review of Systems Review of Systems: Yes all other systems are reviewed and are negative [facility] Past Medical History Medical History (Updated 01/08/25 @ 21:23 by Flavio Medina PA-C) COPD (chronic obstructive pulmonary disease) Diabetes mellitus Brain lesion Reactive airway disease Coronary artery disease Insulin dependent type 2 diabetes mellitus Exposure to rabies Lymphoma Restrictive lung disease secondary to obesity Nocturnal hypoxemia DRE (obstructive sleep apnea) Cough Nicotine dependence, cigarettes, uncomplicated Allergic rhinitis Morbid obesity Hyperlipidemia GERD (gastroesophageal reflux disease) Tubular adenoma Chronic idiopathic constipation IBS (irritable bowel syndrome) Back pain Depression Surgical History History of total right knee replacement (TKR) History of appendectomy (~1978) History of (~1986) History of hysterectomy (~1995) History of lithotripsy (~2018) History of carpal tunnel surgery of right wrist (~2020) History of colonoscopy History of esophagogastroduodenoscopy (EGD) Family History Family History Mother Diabetes Heart muscle disorder caused by another medical condition Father Diabetes Epilepsy Sister No problems noted. Sister No problems noted. Sister No problems noted. Sister No problems noted. Sister No problems noted. Brother No problems noted. Brother No problems noted. Brother No problems noted. Brother No problems noted. Brother No problems noted. Brother No problems noted. Daughter No problems noted. Daughter No problems noted. Son No problems noted. Son No problems noted. Son No problems noted. Social History Social History Household Members: Other Household Members Other:: grandson Housing: Apartment Are you a primary youth care specialist to a significant other at home: No Do you presently have visiting nurse or other home services: No Alcohol intake: current Alcohol intake frequency: does not drink Patient Tobacco Use Status: Current everyday Tobacco user Tobacco use type: Cigarette Cigarette Packs Per Day: 2 Cigarettes Per Day: 40.0 Years Smoked: (onset 13yo, x 42yrs, max 2ppd, now 1/2ppd - 30PYH) Smoked in Last 30 Days: No e-Cigarette/Vaping Use: Never Used Second Hand Smoke Exposure: No Use of substances other than those prescribed or required for medical reasons: No Substance Use Type: Marijuana Advance Directives: No Advance Directives Information Provided: No Do you have a plan to hurt others: No Plan service: No Current occupational status: disabled Current occupation: rt handed Physical Exam Vital Signs: Vital Signs: Last Vital Signs Temp 98.3 F 01/08/25 21:07 Pulse 72 01/08/25 22:41 Resp 18 01/08/25 22:41 BP 106/73 01/08/25 21:07 Pulse Ox 98 01/08/25 21:07 O2 Del Method Room Air 01/08/25 21:07 BMI result Body Mass Index 41.8 CONSTITUTIONAL: The patient appears chronically ill, otherwise non-toxic, well nourished and in no acute distress. Vital signs as documented. HEAD: Atraumatic, normocephalic. EYES: EOMs grossly intact, pupils equal, conjunctiva clear, no exudate. ENT: Nares patent, no discharge. Airway patent, no audible stridor, visible mucosa is pink and moist without noted lesions. NECK: Trachea is midline, no obvious masses or gross abnormalities. CHEST: Symmetric movement, normal appearance. LUNGS: LS diminished throughout, with expiratory wheezing noted in the bilateral upper lung knight, no rales or rhonchi appreciated. Non-labored work of breathing at rest in the exam stretcher. CARDIAC: Regular Rhythm, S1/S2 appreciated, no murmurs, rubs or gallops. ABDOMEN: Abdomen soft and non-tender x4 quadrants, no palpable masses or organomegaly. : Deferred. EXTREMITIES: Normal tone, moves all extremities spontaneously without reported pain. No obvious acute injury or deformity noted. NEURO: Alert and oriented x3, CN II-XII appear grossly intact. Cerebellar Functioning grossly intact. Motor function at baseline per patient and daughter. Speech clear and appropriate. PSYCH: normal affect, appropriate eye contact, fluid speech, with appropriate response to questioning. No reported suicidality or homicidality. SKIN: Warm, dry, color appropriate, normal turgor. No rashes noted. Course Course Course Narrative: This is an RME: Additional HPI, ROS, PE not included below will be deferred to primary provider. RME assessment and note performed by: Aurora Beltrán PA-C This is a 59-year-old female, with a hx of hyperlipidemia, diabetes, hypertension, recent CVA March of 2024 with left-sided residual deficits, who presents emergency department with complaints of chest pain and shortness for breath that started at 2:30 p.m.. this afternoon. Plan: EKG, chest x-ray, viral swabs, labs, further ER evaluation needed. Medications Administered Discontinued Medications Generic Name Dose Route Start Last Admin Trade Name Freq PRN Reason Stop Dose Admin Acetaminophen 975 mg 01/08/25 20:59 01/08/25 21:44 Acetaminophen 325 Mg Tablet PO 01/08/25 21:00 975 mg ONCE ONE Administration Albuterol Sulfate 2.5 mg 01/08/25 22:38 01/08/25 22:40 Albuterol Sulfate (0.083%) 2.5 Mg/3 Ml Vial.Neb INHALE 01/08/25 22:39 2.5 mg ONCE ONE Administration Azithromycin 500 mg/ Sodium 250 mls @ 125 mls/hr 01/08/25 20:59 01/09/25 00:10 Chloride IV 01/08/25 22:58 Infused ONCE ONE Infusion Ketorolac Tromethamine 15 mg 01/08/25 20:59 01/08/25 21:42 Ketorolac Tromethamine 15 Mg/Ml Vial IVPUSH 01/08/25 21:00 15 mg ONCE ONE Administration Methylprednisolone Sodium Succinate 125 mg 01/08/25 20:59 01/08/25 21:41 Methylprednisolone Sod Succ 125 Mg/2 Ml Vial IVPUSH 01/08/25 21:00 125 mg ONCE ONE Administration Medical Decision Making Medical Decision Making MDM Narrative: 9:03 PM 01/08/2025 (Izabel SEGURA): The patient is a 59-year-old female with a history of diabetes, CVA with residual left-sided deficit, tobacco dependency, COPD, migraines, hyperlipidemia, DRE, GERD, IBS, morbid obesity, and depression, presenting to the ED for evaluation of chest pain described as a tightness with the associated shortness of breath and a nonproductive cough which all began at 02:00 today. The patient reports she took Tylenol without relief, reports she used her nebulizer machine with mild relief, denies using rescue inhalers. The patient Reports associated headache, denies associated fever/ chills, nausea, vomiting, diarrhea, abdominal pain, pleurisy, hemoptysis, or recent sick contacts. The patient also reports frequent falls since her CVA in March with residual deficit, reports she fell 2 weeks ago, since that time has had left shoulder pain and hand swelling. Chart review reveals patient had imaging of the shoulder and hand at that time, which were negative for acute injury. The patient admits she is still an active smoker despite CVA and COPD history. The patient's exam is notable for diminished breath sounds in the bases with expiratory wheezing in the bilateral upper lung knight. No other acute findings. The patient's laboratory evaluation is markedly reassuring, no leukocytosis, anemia, electrolyte abnormality, or MEDARDO. The patient's LFTs are unremarkable, viral swabs are negative for COVID, influenza, and RSV. The patient's EKG is nonischemic, initial troponin is negative. Patient's repeat troponin is pending. Patient's chest x-ray shows no focal consolidation. The patient's presentation exam is consistent with acute bronchitis/COPD exacerbation. Patient will be treated with nebulizer, Solu-Medrol, azithromycin, Tylenol, Toradol, and we will re-evaluate following interventions. Pending improvement in symptoms patient is likely appropriate for discharge home with continued prednisone and azithromycin. 1:14 AM 01/09/2025 (Izabel SEGURA): The patient's symptoms have improved following interventions in the ED. Patient will be discharged with outpatient supportive care as described above. Admission/Observation Consideration of admission/observation: Escalation of care including admission/observation considered Lab Data MDM Lab Attestation statement: I reviewed the patient's lab results. 01/08/25 18:13 01/08/25 18:13 Labs: Lab Results 01/08/25 01/08/25 01/08/25 Range/Units 17:57 18:13 20:39 WBC 8.1 (4.8-10.8) X10*3/uL RBC 5.14 (4.20-5.50) X10*6/uL Hgb 14.0 (12.0-16.0) g/dl Hct 44.0 (37.0-47.0) % MCV 85.6 (80.0-98.0) fL MCH 27.2 (27.0-33.0) pg MCHC 31.8 (31.0-35.0) g/dl RDW 13.2 (11.0-16.0) % Plt Count 171 (160-400) X10*3/uL MPV 12.4 H (9.4-12.3) fL Immature Gran % (Auto) 0.2 (0.0-0.4) % Neut % (Auto) 57.3 (45-73) % Lymph % (Auto) 32.6 (20-40) % [place] % (Auto) 7.6 (2-11) % Eos % (Auto) 1.6 (0-4) % Baso % (Auto) 0.7 (0-2) % Lymph # (Auto) 2.6 (1.2-4.9) X10*3/uL [place] # (Auto) 0.6 (0.1-1.2) X10*3/uL Eos # (Auto) 0.1 (0.0-0.4) X10*3/uL Baso # (Auto) 0.1 (0.0-0.2) X10*3/uL Abs Immat Gran (auto) 0.02 (0.00-0.03) X10*3/uL Absolute Neuts (auto) 4.6 (2.0-8.3) x10*3/uL Absolute Nucleated RBC 0.000 (0.0-0.012) X10*3/uL Nucleated RBC % (auto) 0.0 (0.0-0.2) /100WBC Sodium 136 (135-145) mmol/L Potassium 4.2 (3.3-5.1) mmol/L Chloride 102 (96-108) mmol/L Carbon Dioxide 23 (22-29) mmol/L Anion Gap 15 (12-20) BUN 16 (9-16) mg/dL Creatinine 0.46 L (0.5-1.4) mg/dL Estim Creat Clear Calc 154.4 Estimated GFR > 60 Random Glucose 194 H (60-115) mg/dL Calcium 9.5 (8.4-10.2) mg/dL Magnesium 2.0 (1.6-2.6) mg/dL Total Bilirubin 0.4 (0.0-1.0) mg/dL Direct Bilirubin 0.1 (0.0-0.5) mg/dL AST 24 (5-31) U/L ALT 44 H (0-31) U/L Alkaline Phosphatase 83 (39-117) U/L Troponin I High Sens < 2.7 < 2.7 (<3.5-17.0) ng/L Total Protein 6.8 (6.5-8.0) g/dL Albumin 4.1 (3.5-5.0) g/dL Urine Color Urine Appearance Urine pH (5.0-9.0) Ur Specific Cosby (1.005-1.025) Urine Protein (Neg-Trace) mg/dL Urine Glucose (UA) (Negative) mg/dL Urine Ketones (Negative) mg/dL Urine Blood (Negative) Urine Nitrite (Negative) Ur Leukocyte Esterase (Negative) Influenza Type A (PCR) NEGATIVE (Negative) Influenza Type B (PCR) NEGATIVE (Negative) RSV RNA Qual (PCR) NEGATIVE (Negative) SARS-CoV-2 RNA (RT-PCR) NEGATIVE (Negative) 01/08/25 Range/Units 22:51 WBC (4.8-10.8) X10*3/uL RBC (4.20-5.50) X10*6/uL Hgb (12.0-16.0) g/dl Hct (37.0-47.0) % MCV (80.0-98.0) fL MCH (27.0-33.0) pg MCHC (31.0-35.0) g/dl RDW (11.0-16.0) % Plt Count (160-400) X10*3/uL MPV (9.4-12.3) fL Immature Gran % (Auto) (0.0-0.4) % Neut % (Auto) (45-73) % Lymph % (Auto) (20-40) % [place] % (Auto) (2-11) % Eos % (Auto) (0-4) % Baso % (Auto) (0-2) % Lymph # (Auto) (1.2-4.9) X10*3/uL [place] # (Auto) (0.1-1.2) X10*3/uL Eos # (Auto) (0.0-0.4) X10*3/uL Baso # (Auto) (0.0-0.2) X10*3/uL Abs Immat Gran (auto) (0.00-0.03) X10*3/uL Absolute Neuts (auto) (2.0-8.3) x10*3/uL Absolute Nucleated RBC (0.0-0.012) X10*3/uL Nucleated RBC % (auto) (0.0-0.2) /100WBC Sodium (135-145) mmol/L Potassium (3.3-5.1) mmol/L Chloride (96-108) mmol/L Carbon Dioxide (22-29) mmol/L Anion Gap (12-20) BUN (9-16) mg/dL Creatinine (0.5-1.4) mg/dL Estim Creat Clear Calc Estimated GFR Random Glucose (60-115) mg/dL Calcium (8.4-10.2) mg/dL Magnesium (1.6-2.6) mg/dL Total Bilirubin (0.0-1.0) mg/dL Direct Bilirubin (0.0-0.5) mg/dL AST (5-31) U/L ALT (0-31) U/L Alkaline Phosphatase (39-117) U/L Troponin I High Sens (<3.5-17.0) ng/L Total Protein (6.5-8.0) g/dL Albumin (3.5-5.0) g/dL Urine Color Yellow Urine Appearance Clear Urine pH 6.0 (5.0-9.0) Ur Specific [place] 1.020 (1.005-1.025) Urine Protein Negative (Neg-Trace) mg/dL Urine Glucose (UA) Negative (Negative) mg/dL Urine Ketones Negative (Negative) mg/dL Urine Blood Negative (Negative) Urine Nitrite Negative (Negative) Ur Leukocyte Esterase Negative (Negative) Influenza Type A (PCR) (Negative) Influenza Type B (PCR) (Negative) RSV RNA Qual (PCR) (Negative) SARS-CoV-2 RNA (RT-PCR) (Negative) Independent Interpretation I performed an independent interpretation of an: EKG ( EKG shows sinus rhythm with a rate of 76, no evidence of acute ischemia, no ST elevation, no ectopy. QTC 414. Compared to previous on 08/17/2024 there are no significant morphology changes.) Radiology Impression Discussion of test interpretation with radiology: I have reviewed the radiologist's reading. Radiologist Impression: EXAMINATION: XR CHEST CLINICAL INFORMATION: CP COMPARISON: 08/17/2024. TECHNIQUE: 2 views of the chest were obtained. FINDINGS: Borderline cardiac enlargement. Mediastinal and hilar contours appear normal. Aortic mural calcifications. The lungs appear clear bilaterally. There is no pneumothorax or pleural effusion. There is no focal osseous or soft tissue abnormality. XR/XR chest 2V IMPRESSION: No active pulmonary disease. No interval change. Electronically signed by: Flavio Simms MD 01/08/2025 04:29 PM [facility] [place] External Record Review External record reviewed: Outpatient record and Prior outpatient labs Prescription Management I considered prescription management with: Pain Medication and Antibiotic Discharge Plan Discharge Clinical Impression: Acute bronchitis Qualifiers: Bronchitis organism: unspecified organism Qualified Code(s): J20.9 - Acute bronchitis, unspecified Patient Disposition: Home, Self-Care Instructions: Acute Bronchitis (ED), COPD (Chronic Obstructive Pulmonary Disease) (ED) Additional Instructions: Julia por elegir el [facility] para fleming atenci?n hoy. Afortunadamente, los resultados de ro an?lisis de laboratorio, electrocardiograma, radiograf?a de t?rax, prueba viral y examen f?sico de hoy son tranquilizadores. En eddie momento, no hay indicaci?n de ingreso hospitalario ni de observaci?n continua en urgencias, y puede ser dado de feliciano a fleming domicilio sin riesgo. Ro s?ntomas y evaluaci?n son compatibles con bronquitis aguda, tobias infecci?n viral que causa inflamaci?n de las v?as respiratorias y exacerbaci?n de fleming EPOC subyacente. [place] la prednisona y la azitromicina seg?n lo prescrito hasta terminar el tratamiento. Contin?e usando fleming nebulizador e inhaladores de rescate seg?n las indicaciones, seg?n sea necesario. Debe nia dosis alternas de ibuprofeno 600 mg y paracetamol 1000 mg cada 4 horas, seg?n sea necesario, para aliviar cualquier dolor adicional. Mant?ngase elías hidratado y descanse lo suficiente. Consulte con fleming m?dico de cabecera para tobias reevaluaci?n, el manejo adicional de ro s?ntomas y la continuidad de la atenci?n preventiva. Si no tiene un m?dico de cabecera, llame al [facility] al [phone] para que le asignen carlton. Mientras espera, puede llamar a nuestra [facility]?n sin Liz Previa al [phone] para consultas que no kraig de emergencia. Regrese al departamento de emergencias si presenta un empeoramiento repentino o grave de ro s?ntomas, fiebre superior a 38 ?C que no mejora con paracetamol o ibuprofeno, v?mitos recurrentes o cualquier otro s?ntoma o preocupaci?n nueva o que empeore. Thank you for choosing [facility]'s Emergency Department for your care today. Thankfully your laboratory evaluation, EKG, chest x-ray, viral swab, and exam today are reassuring. At this time there is no indication for admission to the hospital or continued ED observation, and it is safe to discharge you home. Your symptoms and evaluation are consistent with acute bronchitis, which is a viral infection causing inflammation of your airways and exacerbation of your underlying COPD. Please take prednisone as prescribed until finished, please take azithromycin as prescribed until finished. Please continue using your nebulizer machine and rescue inhalers as directed as needed. You should take alternating (staggered) doses of ibuprofen 600mg and Tylenol 1000mg every 4 hours as needed for any additional pain. Please stay well hydrated and get plenty of rest. Please follow up with your primary care physician for re-evaluation, additional management of your symptoms, and continued preventative care. If you do not have a primary care physician, please call the [facility] at [phone] to establish a new primary care physician. While waiting to establish your new primary care physician, you can call our [facility] at [phone] for non-emergency needs. Please return to the emergency department if you develop a severe or sudden change in your symptoms, a fever over 100.4 that does not improve with Tylenol or Ibuprofen, recurrent vomiting, or any other new or worsening symptoms or concerns. Prescriptions: New azithromycin [Zithromax Z-Wilmer] 250 mg tablet See Rx Instructions .ROUTE .COMPLEX Qty: 6 0RF Rx Instructions: For 250 mg dose pack: take 500 mg today (day 1), then 250 mg for 4 days (days 2-5) prednisone 20 mg tablet 60 mg PO DAILY 5 Days Qty: 15 0RF No Action Advair HFA 115-21 mcg/actuation HFA aerosol inhaler 2 puff inhalation Q12H 30 Days Qty: 12 5RF Rx Instructions: administer with spacer pyridoxine (vitamin B6) 100 mg tablet 100 mg PO DAILY 90 Days Qty: 90 3RF Combivent Respimat 20-100 mcg/actuation mist 1 puff PO Q6H Qty: 4 3RF losartan 50 mg tablet 50 mg PO DAILY oxcarbazepine 150 mg tablet 150 mg PO DAILY calcium carbonate-vitamin D3 600 mg-5 mcg (200 unit) tablet 1 tab PO BID meloxicam 7.5 mg tablet 7.5 mg PO DAILY famotidine 20 mg tablet 20 mg PO BID trazodone 100 mg tablet 100 mg PO BEDTIME PRN (Reason: insomnia) baclofen 10 mg tablet 10 mg PO TID PRN (Reason: muscle spasm) furosemide 20 mg tablet 20 mg PO DAILY albuterol sulfate [Ventolin HFA] 90 mcg/actuation HFA aerosol inhaler 2 puff INHALATION Q4H PRN (Reason: wheezing) ezetimibe 10 mg tablet 10 mg PO DAILY icosapent ethyl 1 gram capsule 2 g PO BID Mounjaro 15 mg/0.5 mL pen injector 15 mg subcut FR acetaminophen 650 mg tablet extended release 650 mg PO Q8H PRN (Reason: Mild Pain (Scale Score 1-4)) albuterol sulfate 2.5 mg /3 mL (0.083 %) solution for nebulization 2.5 mg inhalation Q4H PRN (Reason: shortness of breath or wheezing) cetirizine [Zyrtec] 10 mg tablet 10 mg PO DAILY oxycodone 10 mg tablet 10 mg PO DAILY PRN (Reason: headache) Qty: 30 0RF Rx Instructions: Partial Fill upon patient request. ibuprofen 600 mg tablet 600 mg PO Q6H PRN (Reason: pain) Qty: 12 0RF methocarbamol 750 mg tablet 750 mg PO BEDTIME Qty: 7 0RF montelukast [Singulair] 10 mg tablet 10 mg PO BEDTIME gabapentin 600 mg tablet 600 mg PO TID PRN (Reason: Pain) metoprolol succinate 25 mg tablet extended release 24 hr 25 mg PO BEDTIME (DME) pen needle, diabetic [Pentips Pen Needle] 32 gauge x 5/32 needle See Rx Instructions .ROUTE DAILY Qty: 50 Rx Instructions: As directed paroxetine HCl 40 mg tablet 40 mg PO BEDTIME Lantus Solostar U-100 Insulin 100 unit/mL (3 mL) insulin pen 36 unit subcut DAILY lidocaine 5 % adhesive patch,medicated 1 patch topical DAILY PRN (Reason: Pain) Rx Instructions: leave on most painful area for up to 12 hrs oxcarbazepine 300 mg tablet 450 mg PO BEDTIME clonidine HCl 0.1 mg tablet 0.1 mg PO BEDTIME metformin 500 mg tablet extended release 24 hr 500 mg PO BEDTIME atorvastatin 80 mg tablet 80 mg PO BEDTIME Referrals: Name,MD Kiel [Primary Care Provider, Internal Medicine] Clinical Impression: Acute bronchitis Print Language: Tajik
[2025-01-08 18:00] VITALS: BP 126/82; PULSE 80; RESP 18; O2SAT 96
[2025-01-08 18:17] LABS: MANUAL DIFF FLAG NO
[2025-01-08 18:25] LABS: Hematocrit 44.0 % (37.0-47.0); Hemoglobin 14.0 g/dl (12.0-16.0); Imm Gran Abs Auto 0.02 X10*3/uL (0.00-0.03); Imm Gran Pct Auto 0.2 % (0.0-0.4); Lymphocytes Absolute Auto 2.6 X10*3/uL (1.2-4.9); Mean Corpuscular HGB Conc 31.8 g/dl (31.0-35.0); Mean Corpuscular Hemoglobin 27.2 pg (27.0-33.0); Mean Corpuscular Volume 85.6 fL (80.0-98.0); NRBC Abs Auto 0.000 X10*3/uL (0.0-0.012); NRBC Pct Auto 0.0 /100WBC (0.0-0.2); Platelet Count 171 X10*3/uL (160-400); Red Blood Count 5.14 X10*6/uL (4.20-5.50); White Blood Count 8.1 X10*3/uL (4.8-10.8)
[2025-01-08 18:36] LABS: Alanine Aminotransferase 44 U/L (0-31); Albumin Level 4.1 g/dL (3.5-5.0); Alkaline Phosphatase 83 U/L (39-117); Anion Gap 15 (12-20); Aspartate Amino Transferase 24 U/L (5-31); Blood Urea Nitrogen 16 mg/dL (9-16); Calcium 9.5 mg/dL (8.4-10.2); Carbon Dioxide 23 mmol/L (22-29); Chloride 102 mmol/L (96-108); Creatinine Clr Calc Pharmacy 154.4; Estimated Glomerular Filt Rate > 60; Magnesium 2.0 mg/dL (1.6-2.6); Potassium 4.2 mmol/L (3.3-5.1); Sodium 136 mmol/L (135-145); Total Protein 6.8 g/dL (6.5-8.0)
[2025-01-08 19:04] LABS: Resp Syncy Virus RNA Qual PCR NEGATIVE (Negative); SARS COV2 PCR INHOUSE NEGATIVE (Negative)
[2025-01-08 19:24] LABS: Troponin-I High Sensitivity < 2.7 ng/L (<3.5-17.0)
[2025-01-08 21:07] VITALS: BP 106/73; PULSE 68; RESP 20; TEMP 36.8; O2SAT 98
[2025-01-08 21:14] LABS: Troponin-I High Sensitivity < 2.7 ng/L (<3.5-17.0)
[2025-01-08] MEDS: Albuterol Sulfate (0.083%) 2.5 MG/3 ML VIAL.NEB INHALE (22:40)
[2025-01-08 22:41] VITALS: PULSE 72; RESP 18; O2SAT 97
[2025-01-08 22:58] LABS: Appearance Urine Clear; Glucose Urine UA Negative (Negative); PH 6.0 (5.0-9.0); Specific Gravity - Urine 1.020 (1.005-1.025)
--- NOTE | 2025-01-09 00:10 | PC.NURSE ---
This RN assumed pt care @ 2300. Pt resting in bed comfortably, no signs of distress. Pts family at bedside Plan of care ongoing.
[2025-01-09 01:23] VITALS: BP 119/70; PULSE 82; RESP 16; TEMP 36.7; O2SAT 95
[2025-01-09 01:36] VITALS: BP 119/70; PULSE 82; RESP 16; TEMP 36.7; O2SAT 95
--- OUTSIDE RECORDS SUMMARY | 2025-01-09 13:37 | XMS_ITS ---
Author Organization [employer] Address [address] [place] [address] 7t [place] [address] Care Team Providers Care Avionics Test Technician Name Role Phone Name, Kiel BAILEY Primary Care Provider Katlyn Rodriguez PharmD Unavailable [phone] Ania Spencer Unavailable CHW Complex Status:Identified (Enrolling) Start date:01/09/2025 Enrollment reason:ADT Feed Overview CP Assigned Patient. ED- Pt went to [facility] ED on 01/08/25. Case Team Name Relationship Phone Ania Spencer(Responsible Staff) [phone] Continued Care and Services Coordination
--- OUTSIDE RECORDS SUMMARY | 2025-01-09 13:37 | XMS_ITS | Encounter Summary ---
Author Organization [employer] Address [address] [place] [address] 7t [place] [address] Care Team Providers Care Metal Fabrication Supervisor Name Role Phone Name, Kiel BAILEY Primary Care Provider [phone] Katlyn Rodriguez PharmD Unavailable [phone] Nehal Ann RN Unavailable Unavailable Ania Spencer Unavailable Opal Carrasquillo Unavailable Ania Spencer Unavailable Ania Spencer Unavailable Encounter Details Date Type Department Care Team (Late st Contact Info) Description 05/01/2024 Telephone [facility] MEDICINE [address] [place], [place] [phone] Name, MD Kiel [address] [place], [place] [phone] Social History Tobacco Use Types Packs/Day Years [...] the past 12 months, has t he [employer], gas, oil or water [employer] threatened to shut off services in your [...] Care Team (Late st Contact Info) Description 01/10/2025 11:30 AM EST Office Visit [address] [address] Name, MD Kiel [address] [place] [address] 02/04/2025 11:30 AM EST Clinical Support [address] [address] Opal Steiner RN 02/08/2025 9:30 AM EST Medication Management [address] [place] [address] Puia, Katlyn, PharmD [address] [place] [address] documented as of this encounter Goals Goal Patient Goal Type Associated Problems Recent Progress Patient-Stated? Author Record your blood pressure once per day Blood Pressure No Puia, Katlyn, PharmD Blood Pressure < 140/90 Blood Pressure 136/87(2024 11:09 AM EST) No Puia, Katlyn, PharmD Hemoglobin A1c < 7 Result Component 7.8( 1:16 PM EST) No Puia, Katlyn, PharmD Record your blood sugar as directed Result Component No Puia, Katlyn, PharmD documented as of this encounter Visit Diagnoses Not on filedocumented in this encounter Additional Health Concerns Assessment Noted Time PHQ-9 Depression Total Score: 4 09/02/19 10:30 AM EDT documented as of this encounter Care Teams Metal Fabrication Supervisor Relationship Specialty Start Date End Date Name, MD Kiel [address] [place] [address] PCP - General Family Medicine 07/15/15 Puia, Katlyn, PharmD [address] [place] [address] Pharmacist Internal Medicine 10/08/22 Nehal Ann, MARINA [address] [place] [address] Registered Nurse Family Medicine 08/20/24 10/29/24 Ania Spencer 08/20/24 11/26/24 Opal Carrasquillo Registered Nurse 10/29/24 11/26/24 Ania Spencer 12/14/24 12/26/24 Ania Spencer 01/09/25 Marta Ovalle Galley BoyNuclear Reactor Technician 05/25/23 documented as of this encounter
--- OUTSIDE RECORDS SUMMARY | 2025-01-09 13:37 | XMS_ITS | Encounter Summary ---
Author Organization [employer] Address [address] [facility] 7t [place] [address] Care Team Providers Care Meteorological Observer Name Role Phone Name, Kiel BAILEY Primary Care Provider [phone] Katlyn Rodriguez PharmD Unavailable [phone] Reason for Visit * Reason Comments Med Refill Encounter Details Date Type Department Care Team ([facility] Contact Info) Description 01/06/2025 Refill [facility] MEDICINE 230 [place] [address] Katlyn Rodriguez, PharmD 230 [place] [address] Type 2 diabetes mellitus with other specified complication, with long-term current use of insulin (HCC); Hypertriglyceridemia Social History Tobacco Use Types Packs/Day Years [...] Description 01/10/2025 11:30 AM EST Office Visit [address] [address] Name, MD Kiel [address] [place] [address] 02/04/2025 11:30 AM EST Clinical Support [address] [address] Opal Steiner RN 02/08/2025 9:30 AM EST Medication Management [address] [address] Puia, Katlyn, PharmD [address] [place] [address] documented as of this encounter Goals Goal Patient Goal Type Associated Problems Recent Progress Patient-Stated? Author Record your blood pressure once per day Blood Pressure No Puia, Katlyn, PharmD Blood Pressure < 140/90 Blood Pressure 136/87(2024 11:09 AM EST) No Puia, Katlyn, PharmD Hemoglobin A1c < 7 Result Component 7.8( 5 1:16 PM EST) No Katlyn Rodriguez PharmD Record your blood sugar as directed Result Component No Katlyn Rodriguez PharmD documented as of this encounter Visit Diagnoses Diagnosis Type 2 diabetes mellitus with other specified complication, with long-term current use of insulin (HCC) Hypertriglyceridemia Pure hyperglyceridemia documented in this encounter Additional Health Concerns Assessment Noted Time PHQ-9 Depression Total Score: 7 09/05/19 25 11:46 AM EDT documented as of this encounter Care Teams Meteorological Observer Relationship Specialty Start Date End Date Name, MD Kiel [address] [place] [address] PCP - General Family Medicine 07/15/15 aKtlyn Rodriguez PharmD 230 [place] [address] Pharmacist Internal Medicine 10/08/22 Marta Ovalle Tanker DriverSheet Metal Supervisor 05/25/23 documented as of this encounter
--- OUTSIDE RECORDS SUMMARY | 2025-01-09 13:37 | XMS_ITS | Encounter Summary ---
Author Organization [employer] Address [address] [place] [address] 7t [place] [address] Care Team Providers Care Configuration Management Administrator Name Role Phone Name, Kiel BAILEY Primary Care Provider [phone] Katlyn Rodriguez PharmD Unavailable Nehal Ann RN Unavailable Unavailable Ania Spenecr Unavailable Opal Carrasquillo Unavailable Ania Spencer Unavailable Ania Spencer Unavailable Encounter Details Date Type Department Care Team (Late st Contact Info) Description 08/26/2022 Orders Only [facility] MEDICINE 230 [place] [address] Leia Gonzales LPN Social History Tobacco Use [...] Description 01/10/2025 11:30 AM EST Office Visit [address] [place] [address] Name, MD Kiel Jai [place], [place] 02/04/2025 11:30 AM EST Clinical Support [address] [address] Opal Steiner, MARINA 02/08/2025 9:30 AM EST Medication Management [address] [phone] Katlyn Rodriguez PharmD [address] [place] [address] documented as of this encounter Visit Diagnoses Not on filedocumented in this encounter Additional Health Concerns Assessment Noted Time PHQ-9 Depression Total Score: 7 07/15/19 23 2:39 PM EDT documented as of this encounter Care Teams Configuration Management Administrator Relationship Specialty Start Date End Date Name, MD [facility] [place] [place] PCP - General Family Medicine 07/15/15 Katlyn Rodriguez, PharmD [address] [place] [address] Pharmacist Internal Medicine 10/08/22 Nehal Ann, MARINA [address] [place] [address] Registered Nurse Family Medicine 08/20/24 10/29/24 Ania Spencer 08/20/24 11/26/24 Opal Carrasquillo Registered Nurse 10/29/24 11/26/24 Ania Spencer 12/14/24 12/26/24 Ania Spencer 01/09/25 Marta Ovalle AdmeasurerIt Data Architect 05/25/23 documented as of this encounter
--- OUTSIDE RECORDS SUMMARY | 2025-01-09 13:37 | XMS_ITS | Encounter Summary ---
Author Organization [employer] Address [address] [facility] 7t [place] [address] Care Team Providers Care Log Roper Name Role Phone Name, Kiel BAILEY Primary Care Provider [phone] Katlyn Rodriguez PharmD Unavailable Nehal Ann RN Unavailable Unavailable Ania Spencer Unavailable Opal Carrasquillo Unavailable Ania Spencer Unavailable Ania Spencer Unavailable Encounter Details Date Type Department Care Team (Late st Contact Info) Description 02/20/2024 Telephone [facility] MED & PEDS [address] [place] [address] Name, MD Kiel 230 [place] [address] Social History Tobacco Use Types Packs/Day Years [...] the past 12 months, has t he [employer], gas, oil or water company threatened to [...] Description 01/10/2025 11:30 AM EST Office Visit [address] [address] Name, MD Kiel [address] [place] [address] 02/04/2025 11:30 AM EST Clinical Support [address] [address] Opal Steiner RN 02/08/2025 9:30 AM EST Medication Management [address] [address] Katlyn Rodriguez PharmD [address] [place] [address] documented as of this encounter Goals Goal [...] documented as of this encounter Care Teams Log Roper Relationship Specialty Start Date End Date Name, MD Kiel 230 [place] [address] PCP - General Family Medicine 07/15/15 Puia, Katlyn, PharmD 230 [place] [address] Pharmacist Internal Medicine 10/08/22 Nehal Ann RN 230 [place] [address] Registered Nurse Family Medicine 08/20/24 10/29/24 Ania Spencer 08/20/24 11/26/24 Opal Carrasquillo Registered Nurse 10/29/24 11/26/24 Ania Spencer 12/14/24 12/26/24 Ania Spencer 01/09/25 Marta Ovalle Asset Protection LeadAcetylene Cutter 05/25/23 documented as of this encounter
--- OUTSIDE RECORDS SUMMARY | 2025-01-09 13:37 | XMS_ITS | Clinical Summary ---
Author Organization [facility] Address 175 [place] [address] Phone Care Team Providers Care Multimedia Developer Name Role Phone Name, Kiel BAILEY Primary Care Provider [phone] Allergies Active Allergy Reactions Criticality Noted Date [...] Active medical supply, miscellaneous (MISCELLANEOUS MEDICAL SUPPLY [facility]) ULTICARE SHORT PEN NEEDLES 31G X 8 MM USE FOUR TIMES DAILY TO INJECT insulin WITH A MEAL AND AT BEDTIME 06/23/19 16 Active blood sugar diagnostic (FreeStyle Lite Strips) test strip USE TO TEST FINGER STICK BLOOD SUGAR TWICE DAILY DIRECTED 06/23/19 16 Active medical supply, miscellaneous (MISCELLANEOUS MEDICAL SUPPLY MISC) [facility]. DEVICES (COMMODE BEDSIDE) MIS 1 Device by Does not apply route as needed (voiding/bm). 12/11/19 15 Active ASPIRIN ORAL Take 1 Tab by mouth daily. 11/28/19 15 Active lancets (Sure Comfort Lancets) 30 gauge [facility] USE TO TEST FINGER STICK BLOOD SUGAR [...] Problem Noted Date Diagnosed Date COPD exacerbation ([facility] V24, [facility] V28) Abnormal nuclear stress test 11/06/2014 Rib fracture 12/24/2013 Overview (12/12/2023): Non displaced, probable froacture on the right ninth and tenth Abdominal pain 08/15/2013 Lipoma of abdominal wall 11/02/2011 Visual field defect 03/29/2011 Cocaine abuse, episodic use ([facility] V24, [facility] V28) 06/17/2010 Low back pain radiating to left leg 10/08/2009 Overview (12/12/2023): The patient follows with [facility] and is treated with injections to the LS. Asthmatic bronchitis , chronic ([facility] V24, [facility] V28) 07/07/2009 Overview (12/12/2023): Severe and worse in the spring. Last hospitalazion in May and 3 ER visits Hospital 08/02 Known medical problems 06/05/2009 Tobacco use disorder 06/05/2009 Hypertriglyceridemia 06/05/2009 Morbid obesity ([facility] V24, [facility] V28) 2009 Overview (12/12/2023): BMI 48.37 on [...] HYSTERECTOMY WITH BSO; COMMENT: for bleeding, [facility] Medical History Medical History Date Comments Type II or unspecified type diabetes mellitus with unspecified complication, not stated as uncontrolled DX:Type II or unspecified t ype diabetes mellitus with unspecified complication, not stated as uncontrolled Unspecified essential hypertension DX:Unspecified essential hypertension Tobacco abuse DX:Tobacco abuse RAD (reactive airway disease) DX :RAD (reactive airway disease) Morbid obesity ([facility] V24, [facility] V28) DX:Morbid obesity ([facility]) Asthmatic bronchitis , chron ic ([facility] V24, [facility] V28) 07/07/2009 DX:Asthmatic bronchitis , ch ronic ([facility]) Hypertriglyceridemia 06/05/2009 DX:Hypertri glyceridemia Rib fracture 12/24/2013 DX:Rib fracture Family History Medical History Relation Name Comments Blindness Brother 1 Breast cancer Maternal Grandmother Cataracts Maternal Grandmother Blindness Mother Glaucoma Neg Hx Macular degeneration Neg Hx Strabismus Neg Hx Relation Name Status Comments Brother 1 Brother 2 OH Brother 3 Alive 6 brothers are diabetic [...] [facility] Contact Info) Description 01/31/2025 9:00 AM EST Office Visit [facility] [place] [address] [address] Wesley Garcia, MOE [address] [phone] Health Maintenance Due Date Last Done Comments [...] mmol/L LAB CHEMISTRY METHOD 02/06/2024 3:36 AM [facility] Potassium 4.1 3.5 - 5.5 mmol/L LAB CHEMISTRY METHOD 02/06/2024 3:36 AM [facility] Chloride 104 96 - 110 mmol/L LAB CHEMISTRY METHOD 02/06/2024 3:36 AM [facility] CO2 23 21 - 32 mmol/L LAB CHEMISTRY METHOD 02/06/2024 3:36 AM [facility] Anion Gap 9 3 - 11 LAB CHEMISTRY METHOD 02/06/2024 3:36 AM [facility] Glucose 244(H) 70 - 100 mg/dL LAB CHEMISTRY METHOD 02/06/2024 3:36 AM [facility] BUN 17 5 - 25 mg/dL LAB CHEMISTRY METHOD 02/06/2024 3:36 AM [facility] Creatinine 0.71 0.50 - 1.10 mg/dL LAB CHEMISTRY METHOD 02/06/2024 3:36 AM [facility] eGFR 99 >=60 mL/min/1. 73m2 LAB CHEMISTRY METHOD 02/06/2024 3:36 AM EST [facility] Comment:Calculation based on the Chronic Kidney Disease Epidemiology Collaboration (CKD-EPI) equation refit without adjustment for race. BUN/Creatinine Ratio 23.9 LAB CHEMISTRY METHOD 02/06/2024 3:36 AM EST [facility] Calcium 9.3 8.5 - 10.5 mg/dL LAB CHEMISTRY METHOD 02/06/2024 3:36 AM EST [facility] Blood Venous blood specimen / Unknown Venipuncture / Unknown 02/06/2024 2:59 AM EST 02/06/2024 3:13 AM EST Result [facility] Cindy SEGURA LAB BLOOD ORDERABLES Final R esult [facility] [address] [place] [address], * (ABNORMAL) Hemoglobin A1c (11/20/2014) Pathologist [facility] Hemoglobin A1C 7.5(A) 4.0 - 6.0 % Blood Venous blood specimen / Unknown Result [facility] Historical Provider LAB BLOOD ORDERABLES Alis l Result * Urine Albumin Creatinine Ratio (05/10/2014) Pathologist [facility] Urine Albumin Creatinine Ratio abstracted Result [facility] Historical Provider HEALTH MAINTENANCE Final Result * (ABNORMAL) Lipid panel (05/10/2014) [facility] LDL/HDL Ratio 4 0 - 4 Triglycerides 360(A) 0 - 150 mg/dL Cholesterol 179 0 - 200 mg/dL HDL 42 >=40 mg/dL LDL Cholesterol 65 0 - 100 mg/dL Blood Venous blood specimen / Unknown Result [facility] Historical Provider LAB BLOOD ORDERABLES Alis l Result * Hepatitis C Screening (10/10/2013) Pathologist [facility] Hepatitis C Screening abstracted us Historical Provider HEALTH MAINTENANCE Final Result from Last 3 Months or Most Recently Relevant to Health Maintenance Insurance [place]ICA[place] Advance Directives * Full Code - Default [...] currently active code status orders. Care Teams Multimedia Developer Relationship Specialty Start Date End Date Name, MD Kiel [address] [place], [place] PCP - General Internal Medicine 08/28/15
--- OUTSIDE RECORDS SUMMARY | 2025-01-09 13:38 | XMS_ITS | Encounter Summary ---
Author Organization [employer] Address [address] [place] [address] 7t [place] [address] Care Team Providers Care Histopathology Technician Name Role Phone Name, Kiel BAILEY Primary Care Provider [phone] Katlyn Rodriguez PharmD Unavailable Nehal Ann RN Unavailable Unavailable Ania Spencer Unavailable Opal Carrasquillo Unavailable Ania Spencer Unavailable Ania Spencer Unavailable Reason for Visit * Reason Onset Date Comments Nurse Triage 07/04/2024 Encounter Details Date Type Department Care Team (Late st Contact Info) Description 07/04/2024 Telephone [facility] MEDICINE [address] [place], [place] [phone] Name, MD Kiel [address] [place], [place] [phone] Nurse Triage Social History Tobacco Use Types [...] EDT Triage call with [facility] [place] [id number] [place]. Pt reports headache over the entire head. No involvement with eye area. BP is 104/60. Pt has been seen by neurologist at [facility] [place] and is being tested for possible tumor. Pt was prescribed dexamethasone byneurologist. Pt pain is moderate . Pt has been prescribed roxicodone 10mg starting 06/28/24 but, reports pharmacy wouldn't fill prescription last time contacted. Pt daughter is speaking for Pt at this time. Daughter is advised to call [facility] for prescription of roxicodone which [...] caller accepted this outcome. Contact pt at [phone] (cambodian) documented in this encounter Plan of Treatment Upcoming Encounters Date Type Department Care Team ([facility] st Contact Info) Description 01/10/2025 11:30 AM EST Office Visit [address] [address] Name, MD Kiel [address] [place] [address] 02/04/2025 11:30 AM EST Clinical Support [address] [address] Opal Steiner RN 02/08/2025 9:30 AM EST Medication Management [address] [address] Puia, Katlyn, PharmD [address] [place] [address] documented as of this encounter Goals Goal [...] documented as of this encounter Care Teams Histopathology Technician Relationship Specialty Start Date End Date Name, MD Kiel [address] [place] [address] PCP - General Family Medicine 07/15/15 Katlyn Rodriguez, PharmD [address] [place], [place] [phone] Pharmacist Internal Medicine 10/08/22 Nehal Ann RN [address] [place] [address] Registered Nurse Family Medicine 08/20/24 10/29/24 Ania Spencer 08/20/24 11/26/24 Opal Carrasquillo Registered Nurse 10/29/24 11/26/24 Ania Spencer 12/14/24 12/26/24 Ania Spencer 01/09/25 Marta Ovalle Third Grade TeacherAnimal Nutrition Teacher 05/25/23 documented as of this encounter
--- OUTSIDE RECORDS SUMMARY | 2025-01-09 13:38 | XMS_ITS | Encounter Summary ---
Author Organization [employer] Address [address] [facility] 7t [place] [address] Care Team Providers Care Barrel Bander Name Role Phone Name, Kiel BAILEY Primary Care Provider [phone] Katlyn Rodriguez PharmD Unavailable Nehal Ann RN Unavailable Unavailable Ania Spencer Unavailable Opal Carrasquillo Unavailable Ania Spencer Unavailable Ania Spencer Unavailable Reason for Visit * Reason Comments Med Refill Encounter Details Date Type Department Care Team (Late st Contact Info) Description 09/07/2023 Refill [facility] MED & PEDS [address] [place], [place] [phone] Name, MD Kiel [address] [place], [place] [phone] Type 2 diabetes mellitus with other specified [...] Description 01/10/2025 11:30 AM EST Office Visit [address] [address] Name, MD Kiel [address] [place] [address] 02/04/2025 11:30 AM EST Clinical Support [address] [address] Opal Steiner, MARINA 02/08/2025 9:30 AM EST Medication Management [address] [address] Katlyn Rodriguez PharmD [address] [place] [address] documented as of this encounter Goals Goal [...] documented as of this encounter Care Teams Barrel Bander Relationship Specialty Start Date End Date Name, MD Kiel [address] [place] [address] PCP - General Family Medicine 07/15/15 PuiaPremasa, PharmD [address] [place] [address] Pharmacist Internal Medicine 10/08/22 Nehal Ann RN [address] [place] [address] Registered Nurse Family Medicine 08/20/24 10/29/24 Ania Spencer 08/20/24 11/26/24 Opal Carrasquillo Registered Nurse 10/29/24 11/26/24 Ania Spencer 12/14/24 12/26/24 Ania Spencer 01/09/25 Marta Ovalle Can ReconditionerMedical Technical Writer 05/25/23 documented as of this encounter
--- OUTSIDE RECORDS SUMMARY | 2025-01-09 13:38 | XMS_ITS | Encounter Summary ---
Author Organization [facility] Address [address] [place] [address] Care Team Providers Care Outpatient Facility Physical Therapist Name Role Phone Name, Kiel BAILEY Primary Care Provider [phone] Encounter Details Date Type Department Care Team Description 09/10/2022 Social Work [facility] Oncology Services [address] [place] [address] Adina Archer, [facility] Social History Tobacco [...] on filedocumented in this encounter Care Teams Outpatient Facility Physical Therapist Relationship Specialty Start Date End Date Name, MD Kiel [address] [place] [address] [address] [place] [address] PCP - General Internal Medicine 04/17/18 documented as of this encounter
--- OUTSIDE RECORDS SUMMARY | 2025-01-09 13:38 | XMS_ITS | Encounter Summary ---
Author Organization [employer] Address [address] [place] [address] [address] [place] [address] Care Team Providers Care Leather Skinner Name Role Phone Name, Kiel BAILEY Primary Care Provider [phone] Katlyn Rodriguez PharmD Unavailable Nehal Ann RN Unavailable Unavailable Ania Spencer Unavailable Opal Carrasquillo Unavailable Ania Spencer Unavailable Ania Spencer Unavailable Reason for Visit * Reason Comments Med Refill Encounter Details Date Type Department Care Team (Late st Contact Info) Description 06/27/2023 Refill [facility] [address] [place], [place] [phone] Katlyn Rodriguez, PharmD [address] [place], [place] [phone] Tobacco use disorder Social History Tobacco Use [...] Description 01/10/2025 11:30 AM EST Office Visit [address] [address] Name, MD Kiel [address] [place] [address] 02/04/2025 11:30 AM EST Clinical Support [address] [address] Opal Steiner RN 02/08/2025 9:30 AM EST Medication Management [address] [address] Puia, Katlyn, PharmD [address] [place] [address] documented as of this encounter Goals Goal Patient Goal Type Associated Problems Recent Progress Patient-Stated? Author Record your blood pressure once per day Blood Pressure No Katlyn Rodriguze, PharmD Blood Pressure < 140/90 Blood Pressure 136/87(2024 11:09 AM EST) No PuiaReidKatlyn, PharmD Hemoglobin A1c < 7 Result Component 7.8( 5 1:16 PM EST) No Puia, Katlyn, PharmD Record your blood sugar as directed Result Component No Puia, Katlyn, PharmD documented as of this encounter Visit Diagnoses Diagnosis Tobacco use disorder documented in this encounter Additional Health Concerns Assessment Noted Time PHQ-9 Depression Total Score: 7 07/15/19 23 2:39 PM EDT documented as of this encounter Care Teams Leather Skinner Relationship Specialty Start Date End Date Name, MD Kiel [address] [place] [address] PCP - General Family Medicine 07/15/15 Puia, Katlyn, PharmD [address] [place] [phone] Pharmacist Internal Medicine 10/08/22 Nehal Ann RN [address] [place] [phone] Registered Nurse Family Medicine 08/20/24 10/29/24 Ania Spencer 08/20/24 11/26/24 Opal Carrasquillo Registered Nurse 10/29/24 11/26/24 Ania Spencer 12/14/24 12/26/24 Ania Spencer 01/09/25 [facility] [place] 05/25/23 documented as of this encounter
--- OUTSIDE RECORDS SUMMARY | 2025-01-09 13:38 | XMS_ITS | Encounter Summary ---
Author Organization [email or web address] Address [address] [facility] [address] [place] [address] Care Team Providers Care Form Maker Name Role Phone Name, Kiel BAILEY Primary Care Provider Katlyn Rodriguez PharmD Unavailable Ania Spencer Unavailable Opal Carrasquillo Unavailable [phone] Ania Spencer Unavailable Encounter Details Date Type Department Care Team (Late st Contact Info) Description 11/08/2024 Results Follow-Up [facility] [address] [place] [address] Lorenzo Chavez MD [address] [place] [address] XR Hand 3+ Views Left Social History [...] Description 01/10/2025 11:30 AM EST Office Visit [address] [address] Name, MD Kiel [address] [place] [address] 02/04/2025 11:30 AM EST Clinical Support [address] [address] Opal Steiner, MARINA 02/08/2025 9:30 AM EST Medication Management [address] [address] Katlyn Rodriguez PharmD [address] [place] [address] documented as of this encounter Goals Goal [...] documented as of this encounter Care Teams Form Maker Relationship Specialty Start Date End Date Name, MD Kiel [address] [place] [address] PCP - General Family Medicine 07/15/15 Puia, Katlyn, PharmD [address] [place] [address] Pharmacist Internal Medicine 10/08/22 Ania Spencer 08/20/24 11/26/24 Opal Carrasquillo Registered Nurse 10/29/24 11/26/24 Ania Spencer 12/14/24 12/26/24 [facility] [employer] 05/25/23 documented as of this encounter
--- OUTSIDE RECORDS SUMMARY | 2025-01-09 13:38 | XMS_ITS | Clinical Summary ---
Author Organization [employer] Address [address] [place] [address] [address] [place] [address] Care Team Providers Care Health Education Teacher Name Role Phone Name, Kiel BAILEY Primary Care Provider [phone] Katlyn Rodriguez PharmD Unavailable [phone] Ania Spencer Unavailable Allergies Active Allergy Reactions Criticality Noted Date Comments Barium Sulfate Hives 12/01/2023 Gramineae Pollens Itching,Other 07/14/2022 Penicillin G Low 12/01/2023 Other Reaction(s): SWELLING Penicillins Swelling Low 06/05/2009 Medications * This document contains information received [...] 300 mg, 1.5 tabs at bedtime Active montelukast (Singulair) 10 MG tabletIndicatio ns:Essential [...] as needed for wheezing. 18 g 5 5 10:57 AM EST 06/08/19 25 026 Active Tirzepatide (Mounjaro) 15 MG/0.5ML solution auto-injectorIn dications:Type 2 diabetes mellitus with other specified complication, with long-term current use of insulin ([facility]) Inject 15 mg under the skin 1 (one) time per week. 2 mL 11 5 10:56 AM EST 06/08/19 25 Active ezetimibe (Zetia) 10 MG tabletIndicatio ns:Type 2 diabetes mellitus with other specified complication, with long-term current use of insulin (HCC) TAKE 1 TABLET BY MOUTH EVERY MORNING 30 tablet 11 07/24/19 25 Active cetirizine (ZyrTEC) 10 MG tablet TAKE 1 TABLET BY MOUTH EVERY MORNING 90 tablet 1 07/25/19 25 Active rosuvastatin (Crestor) 40 MG tabletIndicatio ns:Type 2 diabetes mellitus with other specified complication, with long-term current use of insulin ([facility]),History of stroke,Tobacco use disorder,Hypert riglyceridemia Take 1 tablet (40 mg) by mouth Once per day. 90 tablet 1 08/17/19 25 Active gabapentin (Neurontin) 800 MG tablet Take 1 tablet (800 mg) by mouth 3 times daily. 90 tablet 11 08/21/19 25 026 Active aspirin 81 MG chewable tabletIndicatio ns:Type 2 diabetes mellitus with other specified complication, with long-term current use of insulin ([facility]) Chew 1 tablet (81 mg) [...] BY MOUTH ONCE DAILY 30 tablet 11 09/13/19 25 Active TechLite Pen [place] 32G X 4 MM miscIndications :Type 2 diabetes mellitus with other specified complication (HCC) USE DIRECTED FOUR TIMES DAILY 100 each 5 10:56 AM EST 09/29/19 25 Active Blood Glucose Monitoring Suppl (FreeStyle Lite) deviceIndicatio ns:Type 2 diabetes mellitus with other specified complication, with long-term current use of insulin ([facility]) Inject 1 each under the skin 2 times daily. Use to test blood sugar as directed 1 each 10/03/19 25 Active glucose blood (FREESTYLE LITE) test stripIndication s:Type 2 diabetes mellitus with other specified complication, with long-term current use of insulin ([facility]) Use to test blood sugar 2 times daily 50 strip 10/03/19 25 Active TRUEplus Lancets 33G miscIndications :Type 2 diabetes mellitus with other specified complication, with long-term current use of insulin ([facility]) Use to test blood sugar [...] complication, with long-term current use of insulin ([facility]) Inject 46 Units under the skin at bedtime. 11/28/19 25 Active famotidine (Pepcid) 20 MG tablet TAKE 1 TABLET BY MOUTH TWICE DAILY IN THE MORNING AND IN THE EVENING 180 tablet 12/11/19 25 Active acetaminophen (Tylenol 8 Hour) 650 [...] FOR 12 HOURS DIRECTED 30 patch 1 5 10:57 AM EST 01/02/20 25 Active Icosapent Ethyl (Vascepa) 1 g capsuleIndicati ons:Type 2 diabetes mellitus with other specified complication, with long-term current use of insulin ([facility]),Hypertrig lyceridemia TAKE 2 CAPSULES BY MOUTH TWICE DAILY IN THE MORNING AND EVENING WITH MEALS 360 capsule 3 01/09/20 25 Active oxyCODONE (Roxicodone) 10 MG immediate release tabletIndicatio ns:Cerebellar mass,Chronic intractable headache, unspecified headache type TAKE 1 TABLET BY MOUTH THREE TIMES DAILY FOR 28 DAYS 84 tablet 01/12/20 25 Active Varenicline Tartrate, Starter, (Chantix Starting Month Wilmer) 0.5 MG X 11 & 1 MG X 42 tablet therapy packIndications :Tobacco use disorder Take 0.5 mg by mouth Once per day for 3 days, THEN 0.5 mg 2 times daily for 4 days, THEN 1 mg 2 times daily. 53 each 5 10:56 AM EST 01/10/20 25 026 Active acetaminophen (Tylenol 8 Hour) 650 MG ER tablet TAKE 1 TABLET BY MOUTH EVERY 8 HOURS NEEDED FOR MILD PAIN DO NOT BREAK, CRUSH, DISSOLVE OR CHEW 90 tablet 1 01/16/20 24 025 Discontinued(R eorder (will not trigger notification to Pharmacy)) Alcohol Swabs (Alcohol Prep) 70 % pads USE DIRECTED TWICE DAILY 100 each 5 01/31/20 24 025 Discontinued Icosapent Ethyl (Vascepa) 1 g capsuleIndicati ons:Type 2 diabetes mellitus with other specified complication, with long-term current use of insulin (HCC),Hypertrig lyceridemia Take 2 capsules (2 g) by mouth with breakfast and with evening meal. 360 capsule 3 02/02/20 24 025 Discontinued lidocaine (Lidoderm) 5 % patchIndication [...] 2024. 84 tablet 11/17/19 25 025 Discontinued oxyCODONE (Roxicodone) 10 MG immediate release tabletIndicatio ns:Cerebellar mass,Chronic intractable headache, unspecified headache type Take 1 tablet (10 mg) by mouth 3 times daily for 28 days. Do not start before December 14, 2024. 84 tablet 12/15/19 25 025 Discontinued Active Problems Problem Noted [...] eddi as late effect of cerebrovascular accident ([facility]) 11/01/2024 Assessment & Plan (11/01/2024 [...] to the hospital Case was presented to [facility] emergency room Hemiparesis of left dominant side ([facility]) 07/23 Assessment & Plan (08/17/2024 1:36 PM EDT): Patient will benefit from PT evaluation and after evaluation at the hospital to be referred to acute PT center Cerebrovascular accident (CVA) ([facility]) 025 History of stroke 07/30/2024 Cerebellar mass 06/28/2024 Chronic, continuous use of opioids 11/29/2023 Overview (11/29/2023): Dx: OA knee Tx: 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: 05/03/23 Chronic pain syndrome [...] PM EST): I presented the case to [facility] emergency room, patient will go [...] EST): Pt reports epidsode of confusion in [facility], declines neuro referral today, reviewed s.s [...] tolerate CPAP On nocturnal oxygen Follows with [facility] pulmonary ([place]) Cocaine abuse, episodic use ([facility]) 06/17/2010 Depression 06/05/2009 Assessment & Plan (04/06/2023 [...] for Paxlovid sent to the pharmacy -Utilized [place] drug interaction battery checker to assess interactions with current med [...] 06/28/2024 Pancytopenia 04/18/2018 06/28/2024 Simple chronic bronchitis ([facility]) 04/18/2018 06/28/2024 Overview (07/14/2022): Severe and worse in the spring. Last hospitalazion in May and 3 ER visits Hospital 08/02 Acute exacerbation of chroni c obstructive airways disease with asthma (CMS/HCC) 01/02/2018 Seizure (CMS/HCC) 11/18/2017 06/28/2024 Anterior knee pain 10/20/2016 Mesenteric [...] Encounters Date Type Department Care Team Description 01/09/2025 Patient Outreach [facility] [address] [place], [place] [phone] NameKiel MD Care Coordination ([facility] ED Follow Up) 01/09/2025 Travel 01/09/2025 Patient Outreach [facility] [address] [place] [address] NameKiel MD 01/08/2025 Orders Only GENERIC EXTERNAL DATA DEPARTMENT Provider, Generic External Data 01/08/2025 Refill [facility] [address], [place] [phone] Anisha Gonzalez, GERARDO Cerebellar mass; Chronic intractable headache, unspecified headache type 01/06/2025 Refill [facility] [address] [place] [address] Katlyn Rodriguez, AngieD Type 2 diabetes mellitus with other specified complication, with long-term current use of insulin (HCC); Hypertriglyceridemia 12/30/2024 Refill [facility] [address] [place] [address] Sarita Baker MD Nondisplaced fracture of right radial styloid process, initial encounter for closed fracture 12/26/2024 Patient Outreach [facility] P[facility] [address] [place] [address] Kiel Shaffer MD Care Coordination (Communication to pt assigned CP Coordinator) 12/26/2024 Refill [facility] [address], [place] [phone] Kiel Shaffer MD 12/25/2024 Orders Only GENERIC EXTERNAL DATA DEPARTMENT Provider, Generic External Data 12/25/[address] [address] Kiel Shaffer MD FYI 12/24/2024 10:40 AM EST Office Visit [facility] [address] [address] Victorino Graves MD Acute pain of left shoulder (Primary Dx); Injury of left shoulder, subsequent encounter; Left-sided weakness 12/24/[address] [address] Kiel Shaffer MD Results (Pt requesting wheelchair , pt stated she's falling too much. ) 12/24/2024 Travel 12/14/[address] [address] Elsie Hall, CHIEF OF ANESTHESIOLOGY Follow-up 12/14/2024 Patient Outreach [facility] [address] [place] [address] Kiel Shaffer MD Care Coordination (CP Care Coordination Chart Review) 12/14/2024 Patient Outreach [facility] [address], [place] [phone] Kiel Shaffer MD Care Coordination ([facility] ED Follow up) 12/14/2024 Patient Outreach [address] [address] Kiel Shaffer MD 12/13/2024 10:40 AM EDT Office Visit [facility] [address] [address] Lorenzo Chavez MD Acute pain of left shoulder (Primary Dx); Acute pain of right knee; Nondisplaced fracture of right radial styloid process, subsequent encounter for closed fracture with delayed healing 12/13/2024 Travel 12/13/2024 Refill [facility] [place] [address] Kiel Shaffer MD Cerebellar mass; Chronic intractable headache, unspecified headache type 12/10/2024 Refill [facility] [address] [place] [address] [place] [address] Kiel Shafefr MD 12/07/2024 Refill [facility] [address] [place] [address] Kiel Shaffer MD Cerebellar mass; Chronic intractable headache, unspecified headache type 11/30/2024 Orders Only [facility] [place] [address] Kiel Shaffer MD 11/27/2024 Travel 11/26/2024 Travel 11/26/2024 Patient Outreach [address] [address] Kiel Shaffer MD Care Management (C3 TC #3-case closed) 11/15/2024 11:30 AM EDT Clinical Support [address] [address] Opal Steiner RN Long-term current use of opiate analgesic (Primary Dx) 11/15/[address] [place] [address] Opal Steiner RN Cerebellar mass; Chronic intractable headache, unspecified headache type; Long-term current use of opiate analgesic 11/15/2024 Travel 11/12/[address] [address] Barbara Martinez [place] 11/12/[address] [address] Barbara Martinez [place] DECEMBER RECALLS 11/08/2024 Results Follow-Up [facility] [address] [place] [address] Lorenzo Chavez MD XR Hand 3+ Views Left 11/08/2024 Travel 11/06/2024 5:00 PM EDT Office Visit [facility] [address] [address] Lorenzo Chavez MD Swelling of left hand (Primary Dx) 11/06/2024 Travel 11/02/2024 Results Follow-Up [address] [address] Sarita Baker MD XR Shoulder 2+ Views Left 11/01/2024 1:00 PM EDT Office Visit [address] [address] Sarita Baker MD Acute bilateral low back pain without sciatica; Acute pain of left shoulder; Bilateral hand pain; Hemiparesis affecting left side as late effect of cerebrovascular accident ([facility]) 11/01/2024 Travel 11/01/[address] [address] Kiel Shaffer MD Nurse Triage 10/29/[address] [address] Katlyn Rodriguez, PharmD 10/29/2024 Travel 10/18/[address] [address] Kiel Shaffer MD Psychophysiological insomnia 10/18/[address] [address] Lizzie Alfaro, GERARDO Cerebellar mass; Chronic intractable headache, unspecified headache type 10/17/2024 Patient Outreach [facility] [address], [place] [phone] Kiel Shaffer MD Care Coordination (C3 f/u call- LVM) 10/16/2024 Patient Outreach [facility] [address] [place] [address] Kiel Shaffer MD 10/09/2024 2:00 PM EDT Office Visit [facility] [address] [address] Sarita Baker MD Essential hypertension (Primary Dx); Nondisplaced fracture of right radial styloid process, initial encounter for closed fracture 10/09/2024 Travel 10/09/2024 Telephone [facility] [address] [place] [address] Kiel Shaffer MD ER Follow-up; Nurse Triage 10/09/2024 Telephone [facility] [address] [place] [address] Name, MD Kiel No Show from Last 3 Months Immunizations Immunization Administration Dates Next Due HepB-CpG 11/05/2022,10/08/2022 Influenza Injectable Quadriv alant Preservative Free IIV4 MDCK 11/05/2022 Influenza Whole 11/06/2010 Influenza injectable quadriv alent IIV4 with preservative 01/09/2016 Influenza injectable quadriv alent preservative free 11/13/2021,01/21/2021,01/07/2020,12/13,01/30/2018 Influenza, IIV3, injectable 02/03/2016,1 ,12/16/2013,02/23,11/02/2012,10/26/2011,01/13/2011 ,11/03/2010,11/21/2009 Influenza, seasonal, injecta ble, preservative free 11/27/2024,11/29/2023 Novel [id number], all formulations 05/31/2009 Pneumococcal Conjugate PCV 20 [...] Description 01/10/2025 11:30 AM EST Office Visit [address] [address] Name, MD Kiel [address] [place] [address] 02/04/2025 11:30 AM EST Clinical Support [address] [address] Opal Steiner RN 02/08/2025 9:30 AM EST Medication Management [address] [address] Katlyn Rodriguez, PharmD [address] [place] [address] Health Maintenance Due Date Last Done Comments [...] 10/20/2023, 10/20/2023, Additional history exists COVID-19 Vaccine (2024- season) 2024 12/15/2021, 03/13/2021, 08/18/2020, Additional history exists Eye Exam 12/16/2024 12/17/2023, 04/0 06/2022, 03/14/2012 Diabetes: Hemoglobin A1C 04/11/2025 025, 10/02/2024, 06/28/2024, Additional history exists Mammogram 06/02/2025 06/03/2023, 01/03/2019 [...] per day Blood Pressure No Katlyn Rodriguez, Bin Blood Pressure < 140/90 Blood Pressure 136/87(2024 11:09 AM EST) No Katlyn Rodriguez, PharmD Hemoglobin A1c < 7 Result Component 7.8( 1:16 PM EST) No Katlyn Rodriguez, PharmD Record your blood sugar as directed Result Component No Puia Katlyn, PharmD Help patients manage their type 2 diabetes Care Plan Help patients manage their type 2 diabetes No AdeniaReidKatlyn, PharmD Weekly blood pressure task Care Plan Weekly blood pressure task No Adenia Katlyn, PharmD Help patients manage their type 2 diabetes Care Plan Help patients manage their type 2 diabetes No AdeniaReidKatlyn, PharmD Patient has chronic kidney disease Care Plan Patient has chronic kidney disease No AdeniaReidKatlyn, PharmD Weekly blood pressure task Care Plan Weekly blood pressure task No Reid Rodriguezyssa, PharmD Patient has chronic kidney disease Care Plan Patient has chronic kidney disease No Katlyn Rodriguez, PharmD Weekly blood pressure task Care Plan Weekly blood pressure task No Noni Pierson RN Weekly blood pressure task Care Plan Weekly blood pressure task No Noni Pierson RN Patient has chronic kidney disease Care Plan Patient has chronic kidney disease No Noni Pierson RN Patient has chronic kidney disease Care Plan Patient has chronic kidney disease No Noni Pierson RN Weekly blood pressure task Care Plan Weekly blood pressure task No Opal Steiner RN Weekly blood pressure task Care Plan Weekly blood pressure task No Opal Steiner RN Patient has chronic kidney disease Care Plan Patient has chronic kidney disease No Opal Steiner RN Patient has chronic kidney disease Care Plan Patient has chronic kidney disease No Opal Steiner RN Weekly blood pressure task Care Plan Weekly blood pressure task No Ania Spencer Weekly blood pressure task Care Plan Weekly blood pressure task No Ania Spencer Patient has chronic kidney disease Care Plan Patient has chronic kidney disease No Ania Spencer Patient has chronic kidney disease Care Plan Patient has chronic kidney disease No Ania Spencer Procedures Procedure Name Priority Date/Time Associated Diagnosis Comments POCT GLYCATED HEMOGLOBIN, TOTAL Routine 01/09/2025 1:16 PM EST Type 2 diabetes mellitus with other specified complication, with long-term current use of insulin (HCC) URINALYSIS WITH REFLEX TO MICROSCOPIC Routine 01/08/2025 10:51 PM EST HIGH SENSITIVITY TROPONIN I Routine 01/08/2025 8:39 PM EST HIGH SENSITIVITY TROPONIN I Routine 01/08/2025 6:13 PM EST MAGNESIUM Routine 01/08/2025 6:13 PM EST BASIC METABOLIC PANEL Routine 01/08/2025 6:13 PM EST HEPATIC FUNCTION PANEL Routine 6:13 PM EST CBC WITH AUTO DIFFERENTIAL Routine 01/08/2025 6:13 PM EST SARS COV2/INFLUENZA A/B AND RSV RNA QL NAAT Routine 01/08/2025 5:57 PM EST XR CHEST 2 VIEWS Routine 01/08/2025 4:17 PM EST XR SHOULDER 2+ VIEWS LEFT Routine 12/25/2024 [...] 2-3 VIEWS Routine 11/01/2024 2:27 PM EDT BI MAMMOGRAM SCREENING TOMOSYNTHESIS BILATERAL Routine 06/03/2023 8:45 AM EDT ALBUMIN, RANDOM URINE W/CREATININE Routine 05/26/2023 8:27 AM EDT Type 2 diabetes mellitus with other specified complication, with long-term current use of insulin ([facility]) Rib pain on left side HM COLONOSCOPY Routine 07/01/2022 4:37 PM EDT DIABETES EYE EXAM Routine 05/26/2022 from Last 3 Months or Most Recently Relevant to Health Maintenance Results * (ABNORMAL) POCT Hgb A1c (01/09/2025 1:16 PM EST) Hemoglobin A1C 7.8(A) 4.0 - 5.7 % Blood 01/09/2025 1:16 PM EST us Kiel Name POINT OF CARE TEST ENTER/EDIT OR DERABLES Final Result * Urinalysis with Reflex to Microscopic (01/08/2025 10:51 PM EST) Color Urine Yellow [facility] Appearance Urine Clear [facility] PH 6.0 5.0 - 9.0 [facility] Glucose Urine UA Negative Negative mg/dL [facility] Urine Blood Negative Negative [facility] Specific Alexis - Urine 1.020 1.005 - 1.025 [facility] Urine Protein Negative Neg-Trace mg/dL [facility] Urine Ketones Negative Negative mg/dL [facility] Nitrite Urine Negative Negative [facility] Leukocyte Esterase Urine Negative Negative [facility] 01/08/2025 10:5 1 PM EST 01/08/2025 10:54 PM EST Generic External Data Provider LAB URINE ORDERAB LES Final Result Performing Organization Address [facility] Co de Phone Number [facility] [address] [place] [phone] * High Sensitivity Troponin I (01/08/2025 8:39 PM EST) Only the most recent of2 resultswithin the time period is included. Pathologist [facility] TROPONIN I HIGH SENSITIVITY <2.7 <3.5 - 17.0 ng/L [facility] Comment:The [place] high sens itivity Troponin-I results should beused in conjunction with other diagnostic information suchas ECG, clinical observations and information, and patientsymptoms to aid in the diagnosis of PR. 01/08/2025 8:39 PM EST 01/08/2025 8:41 PM EST Generic External Data Provider LAB BLOOD ORDERAB LES Final Result Performing Organization Address [facility] Co de Phone Number [facility] [address] [place] [phone] * (ABNORMAL) CBC auto differential (01/08/2025 6:13 PM EST) Only the most recent of2 resultswithin the time period is included. White Blood Count 8.1 4.8 - 10.8 X10*3/uL [facility] Red Blood Count 5.14 4.20 - 5.50 X10*6/uL [facility] Hemoglobin 14.0 12.0 - 16.0 g/dl [facility] Hematocrit 44.0 37.0 - 47.0 % [facility] Mean Corpuscular Volume 85.6 80.0 - 98.0 fL [facility] Mean Corpuscular Hemoglobin 27.2 27.0 - 33.0 pg [facility] Mean Corpuscular HGB Conc 31.8 31.0 - 35.0 g/dl [facility] Red Cell Distribution Width 13.2 11.0 - 16.0 % [facility] Platelet Count 171 160 - 400 X10*3/uL [facility] Mean Platelet Volume 12.4(H) 9.4 - 12.3 fL [facility] Neutrophils Percent Auto 57.3 45 - 73 % [facility] Imm Gran Pct Auto 0.2 0.0 - 0.4 % [facility] Lymphocytes Percent Auto 32.6 20 - 40 % [facility] Monocytes Percent Auto 7.6 2 - 11 % [facility] Eosinophils Percent Auto 1.6 0 - 4 % [facility] Basophils Percent Auto 0.7 0 - 2 % [facility] NRBC Pct Auto 0.0 0.0 - 0.2 /100WBC [facility] Neutrophils Absolute Auto 4.6 2.0 - 8.3 x10*3/uL [facility] Imm Gran Abs Auto 0.02 0.00 - 0.03 X10*3/uL [facility] Lymphocytes Absolute Auto 2.6 1.2 - 4.9 X10*3/uL [facility] Monocytes Absolute Auto 0.6 0.1 - 1.2 X10*3/uL [facility] Eosinophils Absolute Auto 0.1 0.0 - 0.4 X10*3/uL [facility] Basophils Absolute Auto 0.1 0.0 - 0.2 X10*3/uL [facility] NRBC Abs Auto 0.000 0.0 - 0.012 X10*3/uL [facility] 01/08/2025 6:13 PM EST 01/08/2025 6:16 PM EST Narrative [facility] - 01/08/2025 6:25 PM EST 2 attempts made us Generic External Data Provider LAB BLOOD ORDERAB LES Final Result Performing Organization Address City/[facility]/ZIP Co de Phone Number [facility] [address] [place] [phone] * Magnesium (01/08/2025 6:13 PM EST) Magnesium 2.0 1.6 - 2.6 mg/dL [facility] 01/08/2025 6:13 PM EST 01/08/2025 6:16 PM EST Narrative [facility] - 01/08/2025 6:37 PM EST 2 attempts made us Generic External Data Provider LAB BLOOD ORDERAB LES Final Result Performing Organization Address [facility] Co de Phone Number [facility] [address] [place] [phone] * (ABNORMAL) Hepatic Function Panel (01/08/2025 6:13 PM EST) Only the most recent of2 resultswithin the time period is included. Bilirubin, Total 0.4 0.0 - 1.0 mg/dL [facility] Bilirubin, Direct 0.1 0.0 - 0.5 mg/dL [facility] Aspartate Amino Transferase 24 5 - 31 U/L [facility] Comment:Slight Hemolysis.Int erpret result with caution. Alanine Aminotransferase 44(H) 0 - 31 U/L [facility] Total Protein 6.8 6.5 - 8.0 g/dL [facility] Albumin Level 4.1 3.5 - 5.0 g/dL [facility] Alkaline Phosphatase 83 39 - 117 U/L [facility] 01/08/2025 6:13 PM EST 01/08/2025 6:16 PM EST Narrative [facility] - 01/08/2025 6:37 PM EST 2 attempts made us Generic External Data Provider LAB BLOOD ORDERAB LES Final Result Performing Organization Address [facility]/ZIP Co de Phone Number [facility] [address] [place] [phone] * (ABNORMAL) Basic Metabolic Panel (01/08/2025 6:13 PM EST) Sodium 136 135 - 145 mmol/L [facility] Potassium 4.2 3.3 - 5.1 mmol/L [facility] Comment:Slight Hemolysis.Int erpret result with caution. Chloride 102 96 - 108 mmol/L [facility] Carbon Dioxide 23 22 - 29 mmol/L [facility] Anion Gap 15 12 - 20 [facility] Urea Nitrogen (BUN) 16 9 - 16 mg/dL [facility] Creatinine, Serum 0.46(L) 0.5 - 1.4 mg/dL [facility] Creatinine Clr Calc Pharmacy 154.4 [facility] LABS Comment:Provided height and weight: 160.02 cm,107.048 kg.eGFR (calculated from the MDRD study equation) and eCrCl(calculated from the Cockcroft-Gault equation) are based ondifferent parameters and may not yield comparable results.If eCrCl result is absurd, please check patient'sheight/weight. Estimated Glomerular Filt Rate >60 [facility] Comment:Chronic Kidney Disea se: Estimated GFR < 60 mL/min/1.35d8Mavaka Kidney Disease: Estimated GFR < 15 mL/min/1.73m2 Glucose 194(H) 60 - 115 mg/dL [facility] Calcium 9.5 8.4 - 10.2 mg/dL [facility] 01/08/2025 6:13 PM EST 01/08/2025 6:16 PM EST Narrative [facility] - 01/08/2025 6:37 PM EST 2 attempts made us Generic External Data Provider LAB BLOOD ORDERAB LES Final Result Performing Organization Address [facility]/ZIP Co de Phone Number [facility] [address] [place] [address] [phone] * SARS-CoV-2 RNA, Influenza A/B, and RSV RNA, Ql NAAT (01/08/2025 5:57 PM EST) Influenza A PCR NEGATIVE Negative [facility] Influenza B PCR NEGATIVE Negative [facility] Resp Syncy Virus RNA Qual PCR NEGATIVE Negative [facility] SARS COV2 PCR NEGATIVE Negative [facility] Comment:All test results mus t be correlated with clinical findings.Negative results do not preclude SARS-CoV2, influenza Avirus, influenza B virus and/or RSV infectionand should not be used as the sole basis for treatment orother patient management decisions. Negative results must becombined with clinical observations, patient history, andepidemiological information.This test has not been evaluated for monitoring treatment ofinfection.This test has been authorized by the FDA under an EmergencyUse Authorization (EUA) for use by authorized laboratories.Testing performed on the [employer] GeneXpert utilizingreal-time RT-PCR.All SARS CoV2 and positive influenza A/B results arereported to [facility]. 01/08/2025 5:57 PM EST 01/08/2025 6:16 PM EST Narrative [facility] - 01/08/2025 7:04 PM EST 2 attempts made us Generic External Data Provider LAB MICROBIOLOGY - GENERAL ORDERABLES Final Result [facility] [address] [place] [phone] * XR Chest 2 Views (01/08/2025 4:17 PM EST) Anatomical Region Laterality Modality Chest Radiographic Diana ging 01/08/2025 4:17 PM EST Narrative 01/08/2025 4:33 PM EST [address] [address] XRay Report Signed Patient: Sarita Puga MR#: [id number] 92 : 1965 Acct:[id number] Age/Sex: 59 / F ADM Date: 01/08/25 Loc: HO.ED Attending Dr: Ordering Physician: Aurora Beltrán Date of Service: 01/08/25 Procedure(s): XR chest 2V Accession Number(s): [id number] cc: Kiel Shaffer MD; Aurora Beltrán Reason for Exam: CP EXAMINATION: XR CHEST CLINICAL INFORMATION: CP COMPARISON: 08/17/2024. TECHNIQUE: 2 views of the chest were obtained. FINDINGS: Borderline cardiac enlargement. Mediastinal and hilar contours appear normal. Aortic mural calcifications. The lungs appear clear bilaterally. There is no pneumothorax or pleural effusion. There is no focal osseous or soft tissue abnormality. XR/XR chest 2V IMPRESSION: No active pulmonary disease. No interval change. Electronically signed by: Flavio Simms MD 01/08/2025 04:29 PM [facility] Dictated By: Flavio Simms MD Signed By: <Electronically signed by Flavio Simms MD in OV> 01/08/25 1629 DD/ 1617 TD/TT: 01/08/25 1620 Shoe Singer: Procedure Note Donotuseinterpreter, Image - 01/08/2025 [place] [address] XRay Report Signed Patient: Sarita Puga [facility]#: [id number] 92 : 1965Acct:[id number] Age/Sex: 59 / FADM Date: 01/08/25 Loc: HO.ED Attending Dr: Ordering Physician: Aurora Beltrán Date of Service: 01/08/25 Procedure(s): XR chest 2V Accession Number(s): [id number] cc: Kiel Shaffer MD; Aurora Beltrán Reason for Exam: CP EXAMINATION: XR CHEST CLINICAL INFORMATION: CP COMPARISON: 08/17/2024. TECHNIQUE: 2 views of the chest were obtained. FINDINGS: Borderline cardiac enlargement. Mediastinal and hilar contours appear normal. Aortic mural calcifications. The lungs appear clear bilaterally. There is no pneumothorax or pleural effusion. There is no focal osseous or soft tissue abnormality. XR/XR chest 2V IMPRESSION: No active pulmonary disease. No interval change. Electronically signed by: Flavio Simms MD 01/08/2025 04:29 PM EST RP Dictated By: Flavio Simms MD Signed By: <Electronically signed by Flavio Simms MD in OV> 01/08/25 1629 DD/ 1617 TD/TT: 01/08/25 1620 Shoe Singer: [facility] External Provider IMG XR PROCEDURES Final Result * XR Shoulder 2+ Views Left (12/25/2024 9:51 PM EST) Only the most recent of3 resultswithin the time period is included. Anatomical Region Laterality Modality Upper Extremities, Shoulder Left Radi ographic Imaging 12/25/2024 9:51 PM EST Narrative 12/25/2024 9:53 PM EST [address] [address] XRay Report Signed Patient: Sarita Puga MR#: [id number] 92 : 1965 Acct:[id number] Age/Sex: 59 / F ADM Date: 12/25/24 Loc: HO.ED Attending Dr: Ordering Physician: Ignacia Lorenzo Date of Service: 12/25/24 Procedure(s): XR shoulder LT min 2V Accession Number(s): [id number] cc: Ignacia Lorenzo; Name,Kiel BAILEY Reason for Exam: pain, trauma? CLINICAL HISTORY: pain, trauma? 3 view left shoulder Comparison: CR/DC/SR - XR SHOULDER 2 OR MORE VIEWS [...] in OV> 12/25/242151 DD/ 50 TD/TT: 12/25/242150 Shoe Singer: Procedure Note Donotuseinterpreter, Image - 12/25/[address] [address] XRay Report Signed Patient: Sarita Puga MMR#: [id number] 92 : 1965Acct:[id number] Age/Sex: 59 / FADM Date: 12/25/24 Loc: HO.ED Attending Dr: Ordering Physician: Ignacia Lorenzo Date of Service: 12/25/24 Procedure(s): XR shoulder LT min 2V Accession Number(s): [id number] cc: Ignacia Lorenzo; Name,Kiel BAILEY Reason for Exam: pain, trauma? CLINICAL HISTORY: pain, trauma? 3 view left shoulder Comparison: CR/DC/SR - XR SHOULDER 2 OR MORE VIEWS [...] in OV> 12/25/242151 DD/ 50 TD/TT: 12/25/242150 Shoe Singer: us [facility] External Provider IMG XR PROCEDURES Final Result * (ABNORMAL) Comprehensive Metabolic Panel (12/25/2024 5:51 PM EST) Sodium 138 135 - 145 mmol/L [facility] Potassium 4.0 3.3 - 5.1 mmol/L [facility] Chloride 104 96 - 108 mmol/L [facility] Carbon Dioxide 27 22 - 29 mmol/L [facility] Anion Gap 11(L) 12 - 20 [facility] Urea Nitrogen (BUN) 15 9 - 16 mg/dL [facility] Creatinine, Serum 0.49(L) 0.5 - 1.4 mg/dL [facility] Creatinine Clr Calc Pharmacy 142.7 [facility] Comment:Provided height and weight: 160.02 cm,104.326 kg.eGFR (calculated from the MDRD study equation) and eCrCl(calculated from the Cockcroft-Gault equation) are based ondifferent parameters and may not yield comparable results.If eCrCl result is absurd, please check patient'sheight/weight. Estimated Glomerular Filt Rate >60 [facility] Comment:Chronic Kidney Disea se: Estimated GFR < 60 mL/min/1.42t6Ahghkd Kidney Disease: Estimated GFR < 15 mL/min/1.73m2 Glucose 138(H) 60 - 115 mg/dL [facility] Calcium 9.3 8.4 - 10.2 mg/dL [facility] Bilirubin, Total 0.3 0.0 - 1.0 mg/dL [facility] Aspartate Amino Transferase 12 5 - 31 U/L [facility] Alanine Aminotransferase 22 0 - 31 U/L [facility] Total Protein 6.8 6.5 - 8.0 g/dL [facility] Albumin Level 4.3 3.5 - 5.0 g/dL [facility] Alkaline Phosphatase 77 39 - 117 U/L [facility] 12/25/2024 5:51 PM EST 12/25/2024 6:01 PM EST us Generic External Data Provider LAB BLOOD ORDERAB LES Final Result [facility] [address] [place] [phone] * XR Knee 3 Views Right (12/13/2024 12:39 PM EDT) Anatomical Region Laterality Modality Lower Extremities, Knee Right Radiogra phic Imaging 12/13/2024 12:3 9 PM EDT Narrative 12/13/2024 12:58 PM EDT [address] [address] XRay Report Signed Patient: Sarita Puga MR#: [id number] 92 : 1965 Acct:[id number] Age/Sex: 59 / F ADM Date: 12/13/24 Loc: .ED Attending Dr: Ordering Physician: Aurora Beltrán Date of Service: 12/13/24 Procedure(s): XR knee RT 3V Accession Number(s): [id number] cc: Kiel Shaffer MD; Aurora Beltrán Reason [...] 12/13/24 1255 DD/ 1239 TD/TT: 12/13/24 1246 Shoe Singer: SALINAS Procedure Note Donotuseinterpreter, Image - 12/13/[address] [address] XRay Report Signed Patient: Sarita Puga MMR#: [id number] 92 : 1965Acct:[id number] Age/Sex: 59 / FADM Date: 12/13/24 Loc: HO.ED Attending Dr: Ordering Physician: Aurora Beltrán Date of Service: 12/13/24 Procedure(s): XR knee RT 3V Accession Number(s): [id number] cc: Name,Kiel BAILEY; Aurora Beltrán Reason for [...] 12/13/24 1255 DD/ 1239 TD/TT: 12/13/24 1246 Shoe Singer: SALINAS [facility] External Provider IMG XR PROCEDURES Edited Result - Final * XR Lumbar Spine 2-3 Views (12/13/2024 12:38 PM EDT) Only the most recent of2 resultswithin the time period is included. Anatomical Region Laterality Modality Spine, L-spine Radiographic Diana ging 12/13/2024 12:3 8 PM EDT Narrative 12/13/2024 12:56 PM EDT [address] [address] XRay Report Signed Patient: Sarita Puga MR#: [id number] 92 : 1965 Acct:[id number] Age/Sex: 59 / F ADM Date: 12/13/24 Loc: HO.ED Attending Dr: Ordering Physician: Lacy Saucedo MD Date of Service: 12/13/24 Procedure(s): XR lumbar spine 2-3V Accession Number(s): [id number] cc: Lacy Saucedo MD; Name,Kiel BAILEY Reason [...] 12/13/24 1253 DD/ 1238 TD/TT: 12/13/24 1246 Shoe Singer: SALINAS Procedure Note Donotuseinterpreter, Image - 12/13/2024 [place] [address] XRay Report Signed Patient: Sarita Puga MMR#: [id number] 92 : 1965Acct:[id number] Age/Sex: 59 / FADM Date: 12/13/24 Loc: HO.ED Attending Dr: Ordering Physician: Lacy Saucedo MD Date of Service: 12/13/24 Procedure(s): XR lumbar spine 2-3V Accession Number(s): [id number] cc: Lacy Saucedo MD; Name,Kiel BAILEY Reason [...] 12/13/24 1253 DD/ 1238 TD/TT: 12/13/24 1246 Shoe Singer: SALINAS [facility] External Provider IMG XR PROCEDURES Edited Result - Final * MR Wrist w/o Contrast Right (12/06/2024 8:31 PM EDT) Anatomical Region Laterality Modality Upper Extremities, Wrist Right Magneti c Resonance 12/06/2024 8:31 PM EDT Narrative 12/06/2024 8:33 PM EDT [place] [address] Magnetic Resonance Report Signed Patient: Sarita Puga MR#: [id number] 92 : 1965 Acct:[id number] Age/Sex: 59 / F ADM Date: 12/06/24 Loc: HO.MRI Attending Dr: Jose SEGURA Ordering Physician: Jose Hernandez Date of Service: 12/06/24 Procedure(s): MR wrist RT wo con Accession Number(s): [id number] cc: Jose Hernandez; Name,iKel BAILEY Reason for Exam: M79.643 - Pain [...] in OV> 12/06/242032 DD/ 30 TD/TT: 12/06/242030 Shoe Singer: Procedure Note Donotuseinterpreter, Image - 12/06/[address] [address] Magnetic Resonance Report Signed Patient: Sarita Puga [facility]#: [id number] 92 : 1965Acct:[id number] Age/Sex: 59 / FADM Date: 12/06/24 Loc: HO.MRI Attending Dr: Jose SEGURA Ordering Physician: Jose Hernandez Date of Service: 12/06/24 Procedure(s): MR wrist RT wo con Accession Number(s): [id number] cc: Jose Hernandez; Name,Kiel BAILEY Reason for [...] in OV> 12/06/242032 DD/ 30 TD/TT: 12/06/242030 Shoe Singer: us [facility] External Provider IMG MRI PROCEDURES Final Result * (ABNORMAL) Lipid Panel, Standard (11/30/2024 9:56 AM EDT) Triglycerides 122 <150 mg/dL [facility] Comment:Desirable Triglyceri de: less than 150 mg/dLBorderline High Triglyceride 150-199 mg/dLHigh Triglyceride: 200-499 mg/dLVery High Triglyceride: greater than or equal to 5OO mg/dL Cholesterol 151 <200 mg/dL [facility] Comment:Desirable Cholestero l: less than 200 mg/dLBorderline High Cholesterol: 200-239 mg/dLHigh Cholesterol: greater than 239 mg/dL LDL Cholesterol Calculated 91 <100 mg/dL [facility] Comment:Desirable LDL: less than 100 mg/dLNear Optimal/Above Optimal LDL: 110- 129 mg/dLBorderline High LDL: 130-159 mg/dLHigh LDL: 160-189 mg/dLVery High LDL: greater than or equal to 190 mg/dL HDL Cholesterol 36(L) >40 mg/dL [facility] Comment:Desirable HDL: great er than 40 mg/dL Note: This HDL assay may give artificially low results in patients with liver disease. 11/30/2024 9:56 AM EDT 11/30/2024 11:32 AM EDT Kiel Shaffer MD LAB BLOOD ORDERABLES Final Resul t [facility] [address] [place] [phone] * POCT KEELEY-14 Urine Drug Screen [...] - 11/15/2024 11:43 AM EDT UTOX cup Lot#[id number] Exp. 11/27/25 Internal Pass Control Kiel Name POINT OF CARE TEST ENTER/EDIT OR DERABLES Final Result * XR Hand 3+ Views Left (11/07/2024 12:00 PM EDT) Anatomical Region Laterality Modality Upper Extremities, Hand Left Radiogra phic Imaging 11/07/2024 12:0 0 PM EDT Narrative 11/07/2024 12:20 [place] [address] XRay Report Signed Patient: Sarita Puga MR#: [id number] 92 : 1965 Acct:[id number] Age/Sex: 59 / F ADM Date: 11/07/24 Loc: HO.HHCX Attending Dr: Lorenzo Chavez MD Ordering Physician: Lorenzo Chavez MD Date of Service: 11/07/24 Procedure(s): XR hand LT min 3V Accession Number(s): [id number] cc: Lorenzo Chavez MD Reason for Exam: [...] 11/07/24 1217 DD/ 1200 TD/TT: 11/07/24 1202 Shoe Singer: Procedure Note Donotuseinterpreter, Image - 11/07/2024 [place] [address] XRay Report Signed Patient: Sarita Puga MMR#: [id number] 92 : 1965Acct:[id number] Age/Sex: 59 / FADM Date: 11/07/24 Loc: HO.HHCX Attending Dr: Lorenzo Chavez MD Ordering Physician: Lorenzo Chavez MD Date of Service: 11/07/24 Procedure(s): XR hand LT min 3V Accession Number(s): [id number] cc: Lorenzo Chavez MD Reason for Exam: [...] 11/07/24 1217 DD/ 1200 TD/TT: 11/07/24 1202 Shoe Singer: Lorenzo Chavez MD IMG XR PROCEDURES Edited Result - Final * BI Mammogram Screening Tomosynthesis Bilateral (06/03/2023 8:45 AM EDT) Anatomical Region Laterality Modality Breast Bilateral Mammography 06/03/2023 8:45 AM EDT Narrative 06/30/2023 10:24 PM EDT [facility] [address] [place] [address] Mammography Report Signed Patient: Sarita Puga MR#: [id number] 92 : 1965 Acct:[id number] Age/Sex: 57 / F ADM Date: 06/03/23 Loc: HO.MAMMO Attending Dr: Kiel Shaffer MD Ordering Physician: Kiel Shaffer MD Results: 1Negative Date of Service: 06/03/23 Follow Up: 1 Year From Orig inal Mammogram Procedure(s): MM tomosynthesis screening BI Accession Number(s): [id number] cc: Kiel Shaffer MD EXAMINATION: MM SCREENING [...] MD in OV> 06/30/232219 DD/ 0845 TD/TT: Shoe Singer: Procedure Note Donotuseinterpreter, Image - 06/30/[facility] [address] [place] [address] Mammography Report Signed Patient: Sarita Puga MMR#: [id number] 92 : 1965Acct:[id number] Age/Sex: 57 / FADM Date: 06/03/23 Loc: MAMMO Attending Dr: Kiel Shaffer MD Ordering Physician: Kiel Shaffer MDResults: 1Negative Date of Service: 06/03/23Follow Up: 1 Year From Orig inal Mammogram Procedure(s): MM tomosynthesis screening BI Accession Number(s): [id number] cc: Kiel Shaffer MD EXAMINATION: MM SCREENING [...] MD in OV> 06/30/232219 DD/ 0845 TD/TT: Shoe Singer: us Kiel Shaffer MD IMG BI PROCEDURES Edited Result - Final * Albumin, Random Urine W/Creatinine (05/26/2023 8:27 AM EDT) Creatinine, Urine 185.88 mg/dL [facility] Microalbumin Urine 23.0 mg/L [facility] Microalbum Creatinine Ratio Ur 12.3 <30 ug/mg cr [facility] Comment:Albumin/Creatinine R atio Reference Ranges: Normal: < 30 ug/mg creatinine Microalbuminuria: 30 - 300 ug/mg creatinineClinical Albuminuria: > 300 ug/mg creatinine Urine (Urine, Random) 05/26/2023 8:27 AM EDT 05/26/2023 11:19 AM EDT us Kiel Shaffer MD LAB URINE ORDERABLES Final Resul t Performing Organization Address City/State/[facility] Co de Phone Number [facility] [address] [place] [phone] * Colonoscopy (07/01/2022 4:37 PM EDT) Colonoscopy Normal Normal Narrative Emely Devine - 07/01/2022 4:37 PM EDT Recommended 5 year follow up ([facility]) us Glo Chong MD HEALTH MAINTENANCE Final Result * Diabetes Eye Exam (05/26/2022) Eye Exam Normal Normal us Kiel Shaffer MD HEALTH MAINTENANCE Final Result from Last 3 Months or Most Recently Relevant to Health Maintenance Additional Health Concerns Active Problems Noted Date Diagnosed Date Help patients manage their type 2 diabetes 01/08 Weekly blood pressure task 01/08/2025 Help patients manage their type 2 diabetes 01/08 Patient has chronic kidney disease 01/08/2025 Weekly blood pressure task 01/08/2025 Patient has chronic kidney disease 01/08/2025 Weekly blood pressure task 01/09/2025 Weekly blood pressure task 01/09/2025 Patient has chronic kidney disease 01/09/2025 Patient has chronic kidney disease 01/09/2025 Weekly blood pressure task 01/09/2025 Weekly blood pressure task 01/09/2025 Patient has chronic kidney disease 01/09/2025 Patient has chronic kidney disease 01/09/2025 Weekly blood pressure task 01/09/2025 Weekly blood pressure task 01/09/2025 Patient has chronic kidney disease 01/09/2025 Patient has chronic kidney disease 01/09/2025 Insurance [employer] [place] [employer] [place] [address] Care Teams Health Education Teacher Relationship Specialty Start Date End Date Name, MD Kiel [address] [place], [place] [phone] PCP - General Family Medicine 07/15/15 Katlyn Rodriguez, AngieD [address] [place] [address] Pharmacist Internal Medicine 10/08/22 Ania Spencer 01/09/25 Marta Ovalle Diplomatic CourierShotblaster 05/25/23
--- OUTSIDE RECORDS SUMMARY | 2025-01-09 13:38 | XMS_ITS | Encounter Summary ---
Author Organization [employer] Address [address] [facility] 7t [place] [address] Care Team Providers Care Ui Programmer Name Role Phone Name, Kiel BAILEY Primary Care Provider [phone] Katlyn Rodriguez PharmD Unavailable [phone] Ania Spencer Unavailable Reason for Visit * Reason Comments Care Coordination [facility] Follow Up Encounter Details Date Type Department Care Team (Latest Contact Info) Description 01/09/2025 Patient Outreach [facility] [address] [place] [address] Name, MD Kiel [address] [place] [address] Care Coordination (Formerly [facility] ED Follow Up) Social History Tobacco Use Types Packs/Day Years [...] 01/10/2025 11:30 AM EST Office Visit [address] [address] Name, MD Kiel [address] [place] [address] 02/04/2025 11:30 AM EST Clinical Support [address] [address] Opal Steiner RN 02/08/2025 9:30 AM EST Medication Management [address] [address] Puia, Katlyn, PharmD [address] [place] [address] documented as of this encounter Goals Goal Patient Goal Type Associated Problems Recent Progress Patient-Stated? Author Record your blood pressure once per day Blood Pressure No Puia, Katlyn, PharmD Blood Pressure < 140/90 Blood Pressure 136/87(2024 11:09 AM EST) No Puia, Katlyn, PharmD Hemoglobin A1c < 7 Result Component 7.8( 1:16 PM EST) No Puia Katlyn, PharmD Record your blood sugar as directed Result Component No Puia, Katlyn, PharmD Help patients manage their type 2 diabetes Care Plan Help patients manage their type 2 diabetes No Puia Katlyn, PharmD Weekly blood pressure task Care Plan Weekly blood pressure task No Puia, Katlyn, PharmD Help patients manage their type 2 diabetes Care Plan Help patients manage their type 2 diabetes No Puia Katlyn, PharmD Patient has chronic kidney disease Care Plan Patient has chronic kidney disease No Puia Katlyn, PharmD Weekly blood pressure task Care Plan Weekly blood pressure task No Puia Katlyn, PharmD Patient has chronic kidney disease Care Plan Patient has chronic kidney disease No Jennifer Katlyn, PharmD Weekly blood pressure task Care Plan [...] has chronic kidney disease No Ania Spencer documented as of this encounter Visit Diagnoses Not on filedocumented in this encounter Additional Health Concerns Active Problems Noted Date [...] 01/09/2025 Patient has chronic kidney disease 01/09/2025 Assessment Noted Time PHQ-9 Depression Total Score: 7 09/05/19 11:46 AM EDT documented as of this encounter Care Teams Ui Programmer Relationship Specialty Start Date End Date Name, MD Kiel [address] [place] [address] PCP - General Family Medicine 07/15/15 Katlyn Rodriguez PharmD [address] [place] [address] Pharmacist Internal Medicine 10/08/22 Ania Spencer 01/09/25 Marta Ovalle Bpm AnalystCarpet Jack 05/25/23 documented as of this encounter
--- OUTSIDE RECORDS SUMMARY | 2025-01-09 13:38 | XMS_ITS | Encounter Summary ---
Author Organization [employer] Address [address] [place] [address] 7[address] [place] [address] Care Team Providers Care Sales Record Clerk Name Role Phone Name, Kiel BAILEY Primary Care Provider [phone] Katlyn Rodriguez PharmD Unavailable Nehal Ann RN Unavailable Unavailable Ania Spencer Unavailable Opal Carrasquillo Unavailable Ania Spencer Unavailable Ania Spencer Unavailable Reason for Visit * Reason Onset Date Comments Medication Problem 08/30/2023 Encounter Details Date Type Department Care Team (Late st Contact Info) Description 08/30/2023 Telephone [facility] MEDICINE [address] [place], [place] [phone] Name, MD Kiel [address] [place], [place] [phone] Medication Problem Social History Tobacco Use Types [...] Description 01/10/2025 11:30 AM EST Office Visit [address] [address] Name, MD Kiel [address] [place] [address] 02/04/2025 11:30 AM EST Clinical Support [address] [address] Opal Steiner, MARINA 02/08/2025 9:30 AM EST Medication Management [address] [address] Katlyn Rodriguez, Bin [address] [place] [address] documented as of this encounter Goals Goal [...] as of this encounter Care Teams Sales Record Clerk Relationship Specialty Start Date End Date Name, MD Kiel [address] [place] [address] PCP - General Family Medicine 07/15/15 Puia, Katlyn, PharmD [address] [place] [address] Pharmacist Internal Medicine 10/08/22 Nehal Ann, MARINA [address] [place] [address] Registered Nurse Family Medicine 08/20/24 10/29/24 Ania Spencer 08/20/24 11/26/24 Opal Carrasquillo Registered Nurse 10/29/24 11/26/24 Ania Spencer 12/14/24 12/26/24 Ania Spencer 01/09/25 Marta Ovalle System Support TechnicianStorage Brine Worker 05/25/23 documented as of this encounter
--- OUTSIDE RECORDS SUMMARY | 2025-01-09 13:38 | XMS_ITS | Encounter Summary ---
Author Organization [employer] Address [address] [place] [address] 7t [place] [address] Care Team Providers Care Service Coordinator Name Role Phone Name, Kiel BAILEY Primary Care Provider [phone] Katlyn Rodriguez PharmD Unavailable [phone] Nehal Ann RN Unavailable Unavailable Ania Spencer Unavailable Opal Carrasquillo Unavailable Ania Spencer Unavailable Ania Spencer Unavailable Encounter Details Date Type Department Care Team (Late Contact Info) Description 03/12/2022 Orders Only [facility] & PEDS [address] [place] [address] Millie Sawant LPN Social History Tobacco Use [...] Department Care Team (Late Contact Info) Description 01/10/2025 11:30 AM EST Office Visit [facility] [place] [address] Name, [place] [address] 02/04/2025 11:30 AM EST Clinical Support [facility] [place] [address] Opal Steiner, RN 02/08/2025 9:30 AM EST Medication Management [facility] [place] [address] Katlyn Rodriguez, PharmD [facility] [address] documented as of this encounter Visit Diagnoses Not on filedocumented in this encounter Care Teams Service Coordinator Relationship Specialty Start Date End Date Name, MD Kiel [place] [address] PCP - General Family Medicine 07/15/15 Katlyn Rodriguez, PharmD [facility] [place] [address] Pharmacist Internal Medicine 10/08/22 Nehal Ann, MARINA [address] [place] [address] Registered Nurse Family Medicine 08/20/24 10/29/24 Ania Spencer 08/20/24 11/26/24 Opal Carrasquillo Registered Nurse 10/29/24 11/26/24 Ania Spencer 12/14/24 12/26/24 Ania Spencer 01/09/25 Marta Ovalle Consulting Practice DirectorEsthetician Makeup Artist 05/25/23 documented as of this encounter
--- OUTSIDE RECORDS SUMMARY | 2025-01-09 13:38 | XMS_ITS | Encounter Summary ---
Author Organization [employer] Address [address] [place] [address] 7t [place] [address] Care Team Providers Care Mammography Technician Name Role Phone Name, Kiel BAILEY Primary Care Provider [phone] Katlyn Rodriguez PharmD Unavailable Nehal Ann RN Unavailable Unavailable Ania Spencer Unavailable Opal Carrasquillo Unavailable [phone] Ania Spencer Unavailable Ania Spencer Unavailable Reason for Visit * Reason Onset Date Comments Reschedule 08/01/2023 Encounter Details Date Type Department Care Team (Late st Contact Info) Description 08/01/2023 Telephone [facility] [address] [place], [place] [phone] Name, MD Kiel [address] [place] [address] Reschedule Social History Tobacco Use Types Packs/Day [...] the past 12 months, has t he [employer], gas, oil or water company threatened to [...] 08/01/2023 9:55 AM EDT Triage call with [place] [id number] . Pt reports Covid + test this [...] 08/01/2023 9:04 AM EDT Patient cancelled todays CONTROL AREA OPERATOR RV appt today. Pt's CONTROL AREA OPERATOR appt has been rescheduled for chronic [...] AM EDT Tc from pt requesting r/s CONTROL AREA OPERATOR appt, stated is sick and suspect is COVID documented in this encounter Plan of Treatment Upcoming Encounters Date Type Department Care Team (Late st Contact Info) Description 01/10/2025 11:30 AM EST Office Visit [facility] MED[facility] [address] [place] [address] Name, MD Kiel [address] [place] [address] 02/04/2025 11:30 AM EST Clinical Support [facility] [address] [place] [address] Opal Steiner, RN 02/08/2025 9:30 AM EST Medication Management [address] [address] Puia, Katlyn, PharmD [address] [place] [address] documented as of this encounter Goals Goal [...] documented as of this encounter Care Teams Mammography Technician Relationship Specialty Start Date End Date Name, MD Kiel [address] [place] [address] PCP - General Family Medicine 07/15/15 Puia, Katlyn, PharmD [address] [place] [address] Pharmacist Internal Medicine 10/08/22 Nehal Ann RN [address] [place] [address] Registered Nurse Family Medicine 08/20/24 10/29/24 Ania Spencer 08/20/24 11/26/24 Opal Carrasquillo Registered Nurse 10/29/24 11/26/24 Ania Spencer 12/14/24 12/26/24 Ania Spencer 01/09/25 Marta Ovalle Staff NursePrinting Machine Operator Tape Rules 05/25/23 documented as of this encounter
--- OUTSIDE RECORDS SUMMARY | 2025-01-09 13:38 | XMS_ITS | Encounter Summary ---
Author Organization [employer] Address [address] [facility] 7t [place] [address] Care Team Providers Care Clothing Room Supervisor Name Role Phone Name, Kiel BAILEY Primary Care Provider Katlyn Rodriguez PharmD Unavailable [phone] Ania Spencer Unavailable Reason for Visit * Reason Comments Med Refill Encounter Details Date Type Department Care Team ([facility] st Contact Info) Description 01/08/2025 Refill [facility] MEDICINE [address] [place] [address] Anisha Gonzalez NP [address] [place], [place] [phone] Cerebellar mass; Chronic intractable headache, unspecified headache [...] Description 01/10/2025 11:30 AM EST Office Visit [address] [address] Name, MD Kiel [address] [place] [address] 02/04/2025 11:30 AM EST Clinical Support [address] [address] Opal Steiner RN 02/08/2025 9:30 AM EST Medication Management [address] [address] Puia, Katlyn, PharmD [address] [place] [address] documented as of this encounter Goals Goal [...] patients manage their type 2 diabetes No Puia, Katlyn, PharmD Weekly blood pressure task Care Plan Weekly blood pressure task No Puia, Katlyn, PharmD Help patients manage their type 2 diabetes Care Plan Help patients manage their type 2 diabetes No Puia, Katlyn, PharmD Patient has chronic kidney disease Care Plan Patient has chronic kidney disease No Puia, Katlyn, PharmD Weekly blood pressure task Care Plan Weekly blood pressure task No Puia, Katlyn, PharmD Patient has chronic kidney disease Care Plan Patient has chronic kidney disease No Puia, Katlyn, PharmD documented as of this encounter Visit Diagnoses Diagnosis Cerebellar mass Chronic intractable headache, unspecified headache type documented in this encounter Additional Health Concerns Active Problems Noted Date Diagnosed Date Help patients manage their type 2 diabetes 01/08 Weekly blood pressure task 01/08/2025 Help patients manage their type 2 diabetes 01/08 Patient has chronic kidney disease 01/08/2025 Weekly blood pressure task 01/08/2025 Patient has chronic kidney disease 01/08/2025 Assessment Noted Time PHQ-9 Depression Total Score: 7 09/05/19 25 11:46 AM EDT documented as of this encounter Care Teams Clothing Room Supervisor Relationship Specialty Start Date End Date Name, MD Kiel [address] [place] [address] PCP - General Family Medicine 07/15/15 Puia, Katlyn, PharmD [address] [place] [address] Pharmacist Internal Medicine 10/08/22 Ania Spencer 01/09/25 Marta Ovalle Elementary TutorCutter Down 05/25/23 documented as of this encounter
--- OUTSIDE RECORDS SUMMARY | 2025-01-09 13:38 | XMS_ITS | Encounter Summary ---
Author Organization [employer] Address [address] [facility] 7t [place] [address] Care Team Providers Care Special Education Teachers Name Role Phone Name, Kiel BAILEY Primary Care Provider Katlyn Rodriguez PharmD Unavailable [phone] Encounter Details Date Type Department Care Team ([facility] Contact Info) Description 01/08/2025 Orders Only GENERIC EXTERNAL DATA DEPARTMENT [...] t he electric, gas, oil or water [employer] threatened to shut off services in your [...] Description 01/10/2025 11:30 AM EST Office Visit [address] [address] Name, MD Kiel [address] [place] [address] 02/04/2025 11:30 AM EST Clinical Support [address] [address] Opal Steiner RN 02/08/2025 9:30 AM EST Medication Management [address] [address] Puia, Katlyn, PharmD [address] [place] [address] documented as of this encounter Goals Goal [...] patients manage their type 2 diabetes No Katlyn Rodriguez PharmSusan Patient has chronic kidney disease Care Plan Patient has chronic kidney disease No Katlyn Rodriguez PharmD Weekly blood pressure task Care Plan Weekly blood pressure task No Katlyn Rodriguez PharmD Patient has chronic kidney disease Care Plan Patient has chronic kidney disease No Katlyn Rodriguez PharmD documented as of this encounter Procedures Procedure Name Priority Date/Time Associated Diagnosis Comments URINALYSIS WITH REFLEX TO MICROSCOPIC Routine 01/08/2025 10:51 PM EST HIGH SENSITIVITY TROPONIN I Routine 01/08/2025 8:39 PM EST HIGH SENSITIVITY TROPONIN I Routine 01/08/2025 6:13 PM EST CBC WITH AUTO DIFFERENTIAL Routine 01/08/2025 6:13 PM EST MAGNESIUM Routine 01/08/2025 6:13 PM EST HEPATIC FUNCTION PANEL Routine 01/08/2025 6:13 PM EST BASIC METABOLIC PANEL Routine 01/08/2025 6:13 PM EST SARS COV2/INFLUENZA A/B AND RSV RNA QL NAAT Routine 01/08/2025 5:57 PM EST documented in this encounter Results * Urinalysis with Reflex to Microscopic (01/08/2025 10:51 PM EST) Color Urine Yellow [facility] Appearance Urine Clear [facility] PH 6.0 5.0 - 9.0 [facility] Glucose Urine UA Negative Negative mg/dL [facility] Urine Blood Negative Negative [facility] Specific [place] - Urine 1.020 1.005 - 1.025 [facility] Urine Protein Negative Neg-Trace mg/dL [facility] Urine Ketones Negative Negative mg/dL [facility] Nitrite Urine Negative Negative [facility] Leukocyte Esterase Urine Negative Negative [facility] 01/08/2025 10:5 1 PM EST 01/08/2025 10:54 PM EST Generic External Data Provider LAB URINE ORDERAB LES Final Result Performing Organization Address [facility] [address] [place] [phone] * High Sensitivity Troponin I (01/08/2025 8:39 PM EST) TROPONIN I HIGH SENSITIVITY <2.7 <3.5 - 17.0 ng/L [facility] Comment:The [place] high sens itivity Troponin-I results should beused in conjunction with other diagnostic information suchas ECG, clinical observations and information, and patientsymptoms to aid in the diagnosis of HI. 01/08/2025 8:39 PM EST 01/08/2025 8:41 PM EST us Generic External Data Provider LAB BLOOD ORDERAB LES Final Result Performing Organization Address [facility] [address] [place] [phone] * High Sensitivity Troponin I (01/08/2025 6:13 PM EST) TROPONIN I HIGH SENSITIVITY <2.7 <3.5 - 17.0 ng/L [facility] Comment:The [place] high sens itivity Troponin-I results should beused in conjunction with other diagnostic information suchas ECG, clinical observations and information, and patientsymptoms to aid in the diagnosis of HI. 01/08/2025 6:13 PM EST 01/08/2025 6:16 PM EST Narrative [facility] - 01/08/2025 7:24 PM EST 2 attempts made us Generic External Data Provider LAB BLOOD ORDERAB LES Final Result Performing Organization Address [facility] Co de Phone Number [facility] [address] [place] [address] [phone] * Magnesium (01/08/2025 6:13 PM EST) Magnesium 2.0 1.6 - 2.6 mg/dL [facility] 01/08/2025 6:13 PM EST 01/08/2025 6:16 PM EST Narrative [facility] - 01/08/2025 6:37 PM EST 2 attempts made us Generic External Data Provider LAB BLOOD ORDERAB LES Final Result [facility] [address] [place] [address] [phone] * (ABNORMAL) Basic Metabolic Panel (01/08/2025 6:13 PM EST) Pathologist [facility] Sodium 136 135 - 145 mmol/L [facility] Potassium 4.2 3.3 - 5.1 mmol/L [facility] Comment:Slight Hemolysis.Int erpret result with caution. Chloride 102 96 - 108 mmol/L [facility] Carbon Dioxide 23 22 - 29 mmol/L [facility] Anion Gap 15 12 - 20 [facility] Urea Nitrogen (BUN) 16 9 - 16 mg/dL [facility] Creatinine, Serum 0.46(L) 0.5 - 1.4 mg/dL [facility] Creatinine Clr Calc Pharmacy 154.4 [facility] Comment:Provided height and weight: 160.02 cm,107.048 kg.eGFR (calculated from the MDRD study equation) and eCrCl(calculated from the Cockcroft-Gault equation) are based ondifferent parameters and may not yield comparable results.If eCrCl result is absurd, please check patient'sheight/weight. Estimated Glomerular Filt Rate >60 [facility] Comment:Chronic Kidney Disea se: Estimated GFR < 60 mL/min/1.64x7Kbiqjt Kidney Disease: Estimated GFR < 15 mL/min/1.73m2 Glucose 194(H) 60 - 115 mg/dL [facility] Calcium 9.5 8.4 - 10.2 mg/dL [facility] 01/08/2025 6:13 PM EST 01/08/2025 6:16 PM EST Narrative [facility] - 01/08/2025 6:37 PM EST 2 attempts made us Generic External Data Provider LAB BLOOD ORDERAB LES Final Result Performing Organization Address [facility] Co de Phone Number [facility] [address] [place] [phone] * (ABNORMAL) Hepatic Function Panel (01/08/2025 6:13 PM EST) Bilirubin, Total 0.4 0.0 - 1.0 mg/dL [facility] Bilirubin, Direct 0.1 0.0 - 0.5 mg/dL [facility] Aspartate Amino Transferase 24 5 - 31 U/L [facility] Comment:Slight Hemolysis.Int erpret result with caution. Alanine Aminotransferase 44(H) 0 - 31 U/L [facility] Total Protein 6.8 6.5 - 8.0 g/dL [facility] Albumin Level 4.1 3.5 - 5.0 g/dL [facility] Alkaline Phosphatase 83 39 - 117 U/L [facility] 01/08/2025 6:13 PM EST 01/08/2025 6:16 PM EST Narrative [facility] - 01/08/2025 6:37 PM EST 2 attempts made us Generic External Data Provider LAB BLOOD ORDERAB LES Final Result Performing Organization Address [facility] Co de Phone Number [facility] [address] [place] [phone] * (ABNORMAL) CBC auto differential (01/08/2025 6:13 PM EST) White Blood Count 8.1 4.8 - 10.8 X10*3/uL [facility] Red Blood Count 5.14 4.20 - 5.50 X10*6/uL [facility] Hemoglobin 14.0 12.0 - 16.0 g/dl [facility] Hematocrit 44.0 37.0 - 47.0 % [facility] Mean Corpuscular Volume 85.6 80.0 - 98.0 fL [facility] Mean Corpuscular Hemoglobin 27.2 27.0 - 33.0 pg [facility] Mean Corpuscular HGB Conc 31.8 31.0 - 35.0 g/dl [facility] Red Cell Distribution Width 13.2 11.0 - 16.0 % [facility] Platelet Count 171 160 - 400 X10*3/uL [facility] Mean Platelet Volume 12.4(H) 9.4 - 12.3 fL [facility] Neutrophils Percent Auto 57.3 45 - 73 % [facility] Imm Gran Pct Auto 0.2 0.0 - 0.4 % [facility] Lymphocytes Percent Auto 32.6 20 - 40 % [facility] Monocytes Percent Auto 7.6 2 - 11 % [facility] Eosinophils Percent Auto 1.6 0 - 4 % [facility] Basophils Percent Auto 0.7 0 - 2 % [facility] NRBC Pct Auto 0.0 0.0 - 0.2 /100WBC [facility] Neutrophils Absolute Auto 4.6 2.0 - 8.3 x10*3/uL [facility] Imm Gran Abs Auto 0.02 0.00 - 0.03 X10*3/uL [facility] Lymphocytes Absolute Auto 2.6 1.2 - 4.9 X10*3/uL [facility] Monocytes Absolute Auto 0.6 0.1 - 1.2 X10*3/uL [facility] Eosinophils Absolute Auto 0.1 0.0 - 0.4 X10*3/uL [facility] Basophils Absolute Auto 0.1 0.0 - 0.2 X10*3/uL [facility] NRBC Abs Auto 0.000 0.0 - 0.012 X10*3/uL [facility] 01/08/2025 6:13 PM EST 01/08/2025 6:16 PM EST [facility] - 01/08/2025 6:25 PM EST 2 attempts made Generic External Data Provider LAB BLOOD ORDERAB LES Final Result Performing Organization Address [facility] Co de Phone Number [facility] [address] [place] [phone] * SARS-CoV-2 RNA, Influenza A/B, and RSV RNA, Ql NAAT (01/08/2025 5:57 PM EST) Influenza A PCR NEGATIVE Negative [facility] Influenza B PCR NEGATIVE Negative [facility] Resp Syncy Virus RNA Qual PCR NEGATIVE Negative [facility] SARS COV2 PCR NEGATIVE Negative [facility] Comment:All test results mus t [...] use by authorized laboratories.Testing performed on the [employer] GeneXpert utilizingreal-time RT-PCR.All SARS CoV2 and positive influenza A/B results arereported to [facility]. 01/08/2025 5:57 PM EST 01/08/2025 6:16 PM EST [facility] - 01/08/2025 7:04 PM EST 2 attempts made us Generic External Data Provider LAB MICROBIOLOGY - GENERAL ORDERABLES Final Result Performing Organization Address [facility]/ZIP Co de Phone Number [facility] [address] [place] [phone] documented in this encounter Visit Diagnoses [...] documented as of this encounter Care Teams Special Education Teachers Relationship Specialty Start Date End Date Name, MD Kiel [address] [place] [address] PCP - General Family Medicine 07/15/15 Katlyn Rodriguez PharmD [address] [place] [address] Pharmacist Internal Medicine 10/08/22 Marta Ovalle Block PaverThird Grade Teacher 05/25/23 documented as of this encounter
--- OUTSIDE RECORDS SUMMARY | 2025-01-09 13:38 | XMS_ITS | Encounter Summary ---
Author Organization [employer] Address [address] [facility] 7t [place] [address] Care Team Providers Care Window Installer Name Role Phone Name, Kiel BAILEY Primary Care Provider [phone] Katlyn Rodriguez PharmD Unavailable [phone] Ania Spencer Unavailable Encounter Details Date Type Department Care Team (Latest Contact Info) Description 01/09/2025 Travel Social History Tobacco Use Types Packs/Day [...] Description 01/10/2025 11:30 AM EST Office Visit [address] [address] Name, MD Kiel [address] [place] [address] 02/04/2025 11:30 AM EST Clinical Support [address] [address] Opal Steiner RN 02/08/2025 9:30 AM EST Medication Management [address] [address] Puia, Katlyn, PharmD [address] [place] [address] documented as of this encounter Goals Goal [...] blood pressure task No Katlyn Rodriguez PharmD Help patients manage their type 2 diabetes Care Plan Help patients manage their type 2 diabetes No Katlyn Rodriguez PharmD Patient has chronic [...] documented as of this encounter Care Teams Window Installer Relationship Specialty Start Date End Date Name, MD Kiel [address] [place] [address] PCP - General Family Medicine 07/15/15 Katlyn Rodriguez PharmD [address] [place] [address] Pharmacist Internal Medicine 10/08/22 Ania Spencer 01/09/25 Marta Ovalle Director Of Quality ImprovementDepartment Coordinator 05/25/23 documented as of this encounter
--- OUTSIDE RECORDS SUMMARY | 2025-01-09 13:38 | XMS_ITS | Encounter Summary ---
Author Organization [employer] Address [address] [facility] 7t [place] [address] Care Team Providers Care Antisqueak Filler Name Role Phone Name, Kiel BAILEY Primary Care Provider [phone] Katlyn Rodriguez PharmD Unavailable [phone] Ania Spencer Unavailable Encounter Details Date Type Department Care Team (Late st Contact Info) Description 01/09/2025 Patient Outreach [facility] MEDICINE [address] [place] [address] Name, MD Kiel [address] [place] [address] Social History Tobacco Use Types Packs/Day Years [...] 01/10/2025 11:30 AM EST Office Visit [address] [address] Name, MD Kiel [address] [place] [address] 02/04/2025 11:30 AM EST Clinical Support [address] [address] Opal Steiner RN 02/08/2025 9:30 AM EST Medication Management [address] [address] Puia, Katlyn, PharmD [address] [place] [address] documented as of this encounter Goals Goal [...] patients manage their type 2 diabetes No PuiaReidKatlyn, PharmD Weekly blood pressure task Care Plan Weekly blood pressure task No PuiaReidKatlyn, PharmD Help patients manage their type 2 diabetes Care Plan Help patients manage their type 2 diabetes No AdeniaReidKatlyn, PharmD Patient has chronic kidney disease Care Plan Patient has chronic kidney disease No PuReid albertyssa, PharmD Weekly blood pressure task Care Plan Weekly blood pressure task No Reid Rodriguezyssa, PharmD Patient has chronic kidney disease Care Plan Patient has chronic kidney disease No Reid Rodriguezyssa PharmD Weekly blood pressure task Care Plan [...] documented as of this encounter Care Teams Antisqueak Filler Relationship Specialty Start Date End Date Name, MD Kiel [address] [place] [address] PCP - General Family Medicine 07/15/15 Katlyn Rodriguez PharmD [address] [place] [address] Pharmacist Internal Medicine 10/08/22 Ania Spencer 01/09/25 Marta Ovalle Cigar BranderMetal Patternmaker 05/25/23 documented as of this encounter
--- OUTSIDE RECORDS SUMMARY | 2025-01-09 13:38 | XMS_ITS | Encounter Summary ---
Author Organization [employer] Address [address] [place] [address] 7t [place] [address] Care Team Providers Care Field Technician Name Role Phone Name, Kiel BAILEY Primary Care Provider Katlyn Rodriguez PharmD Unavailable Nehal Ann RN Unavailable Unavailable Ania Spencer Unavailable Opal Carrasquillo Unavailable [phone] Ania Spencer Unavailable Ania Spencer Unavailable Encounter Details Date Type Department Care Team (Late st Contact Info) Description 10/29/2022 [facility] [address] [place], [place] [phone] Name, MD Kiel [address] [place] [address] Social History Tobacco Use Types Packs/Day Years [...] Description 01/10/2025 11:30 AM EST Office Visit [address] [phone] Name, MD Kiel Jai [place], [place] 02/04/2025 11:30 AM EST Clinical Support [address] [phone] Opal Steiner, MARINA 02/08/2025 9:30 AM EST Medication Management [address] [phone] PuKatlyn albert, PharmD [address] [place] [address] documented as of this encounter Goals Goal Patient Goal Type Associated Problems Recent Progress Patient-Stated? Author Hemoglobin A1c < 7 Result Component 7.8( [...] as of this encounter Care Teams Field Technician Relationship Specialty Start Date End Date NameKiel MD [facility] [place] [address] PCP - General Family Medicine 07/15/15 PuiaReidKatlyn, PharmD Jai [place], [place] Pharmacist Internal Medicine 10/08/22 Nehal Ann, RN [address] [place] [phone] Registered Nurse Family Medicine 08/20/24 10/29/24 Ania Spencer 08/20/24 11/26/24 Opal Carrasquillo Registered Nurse 10/29/24 11/26/24 Ania Spencer 12/14/24 12/26/24 Ania Spencer 01/09/25 Marta Ovalle Slab Depiler OperatorCinder Pit Crane Operator 05/25/23 documented as of this encounter
--- OUTSIDE RECORDS SUMMARY | 2025-01-09 13:38 | XMS_ITS | Encounter Summary ---
Author Organization [employer] Address [address] [place] [address] 7t [place] [address] Care Team Providers Care Pressing Machine Operator Name Role Phone Name, Kiel BAILEY Primary Care Provider Katlyn Rodriguez PharmD Unavailable Nehal Ann RN Unavailable Unavailable Ania Spencer Unavailable Opal Carrasquillo Unavailable [phone] Ania Spencer Unavailable Ania Spencer Unavailable Reason for Visit * Reason Comments Med Refill Encounter Details Date Type Department Care Team (Late st Contact Info) Description 04/15/2023 Refill [facility] [address] [place], [place] [phone] Yaneth Restrepo FNP [address] [place], [place] [phone] Diabetes mellitus type 2 in obese (CMS/HCC) [...] the past 12 months, has t he [employer], [employer], oil or water [employer] threatened to shut off services in your [...] Description 01/10/2025 11:30 AM EST Office Visit [address] [address] Name, MD Kiel [address] [place] [address] 02/04/2025 11:30 AM EST Clinical Support [address] [address] Opal Steiner RN 02/08/2025 9:30 AM EST Medication Management [address] [address] Puia, Katlyn, PharmD [address] [place] [address] documented as of this encounter Goals Goal Patient Goal Type Associated Problems Recent Progress Patient-Stated? Author Record your blood pressure once per day Blood Pressure No Puia, Katlyn, PharmD Blood Pressure < 140/90 Blood Pressure 136/87(2024 11:09 AM EST) No Puia, Katlyn, PharmD Hemoglobin A1c < 7 Result Component 7.8( 5 1:16 PM EST) No Katlyn Rodriguez PharmSusan Record your [...] documented as of this encounter Care Teams Pressing Machine Operator Relationship Specialty Start Date End Date Name, MD Kiel [address] [place] [address] PCP - General Family Medicine 07/15/15 Katlyn Rodriguez PharmD [address] [place] [address] Pharmacist Internal Medicine 10/08/22 Nehal Ann RN [address] [place] [address] Registered Nurse Family Medicine 08/20/24 10/29/24 Ania Spencer 08/20/24 11/26/24 Opal Carrasquillo Registered Nurse 10/29/24 11/26/24 Ania Spencer 12/14/24 12/26/24 Ania Spencer 01/09/25 Marta Ovalle Saddle StitcherWall Man 05/25/23 documented as of this encounter
--- OUTSIDE RECORDS SUMMARY | 2025-01-09 13:39 | XMS_ITS | Encounter Summary ---
Author Organization [employer] Address [address] [place] [address] 7t [place] [address] Care Team Providers Care Director Student Union Name Role Phone Name, Kiel BAILEY Primary Care Provider [phone] Katlyn Rodriguez PharmD Unavailable Nehal Ann RN Unavailable Unavailable Ania Spencer Unavailable Opal Carrasquillo Unavailable [phone] Ania Spencer Unavailable Ania Spencer Unavailable Reason for Visit * Reason Comments Med Refill Encounter Details Date Type Department Care Team (Late st Contact Info) Description 04/25/2022 Refill [facility] [address] [place], [place] [phone] Name, MD Kiel 230 [place], [place] [phone] Diabetes mellitus type 2 in obese (CMS/HCC) [...] Description 01/10/2025 11:30 AM EST Office Visit [address] [address] Name, MD Kiel [address] [place] [address] 02/04/2025 11:30 AM EST Clinical Support [address] [address] Opal Steiner, MARINA 02/08/2025 9:30 AM EST Medication Management [address] [address] Katlyn Rodriguez PharmSusan [address] [place] [address] documented as of this encounter Visit Diagnoses Diagnosis Diabetes mellitus type 2 in obese- Primary Type II or unspecified type diabetes mellitus without mention of complication, not stated as uncontrolled documented in this encounter Care Teams Director Student Union Relationship Specialty Start Date End Date Name, MD Kiel [address] [place] [address] PCP - General Family Medicine 07/15/15 Katlyn Rodriguez, PharmD [address] [place] [address] Pharmacist Internal Medicine 10/08/22 Nehal Ann, MARINA [address] [place] [address] Registered Nurse Family Medicine 08/20/24 10/29/24 Ania Spencer 08/20/24 11/26/24 Opal Carrasquillo Registered Nurse 10/29/24 11/26/24 Ania Spencer 12/14/24 12/26/24 Ania Spencer 01/09/25 Marta Ovalle Presser HandManager Care Management 05/25/23 documented as of this encounter
--- OUTSIDE RECORDS SUMMARY | 2025-01-09 13:39 | XMS_ITS | Encounter Summary ---
Author Organization [employer] Address [address] [place] [address] 7t [place] [address] Care Team Providers Care Administration Vice President Name Role Phone Name, Kiel BAILEY Primary Care Provider [phone] Katlyn Rodriguez PharmD Unavailable Nehal Ann RN Unavailable Unavailable Ania Spencer Unavailable Opal Carrasquillo Unavailable [phone] Ania Spencer Unavailable Ania Spencer Unavailable Encounter Details Date Type Department Care Team (Late st Contact Info) Description 02/23/2022 Orders Only [facility] 230 [place], [place] [phone] Name, MD Kiel [address] [place], [place] [phone] Social History Tobacco Use Types Packs/Day Years [...] Description 01/10/2025 11:30 AM EST Office Visit [address] [address] Name, MD Kiel [address] [place] [address] 02/04/2025 11:30 AM EST Clinical Support [address] [phone] Opal Steiner, RN 02/08/2025 9:30 AM EST Medication Management [address] [phone] Katlyn Rodriguez PharmD [address] [place] [address] documented as of this encounter Visit Diagnoses Not on filedocumented in this encounter Care Teams Administration Vice President Relationship Specialty Start Date End Date Name, MD Kiel [address] [place] [address] PCP - General Family Medicine 07/15/15 Katlyn Rodriguez, PharmD [address] [place] [address] Pharmacist Internal Medicine 10/08/22 Nehal Ann, RN [address] [place] [address] Registered Nurse Family Medicine 08/20/24 10/29/24 Ania Spencer 08/20/24 11/26/24 Opal Carrasquillo Registered Nurse 10/29/24 11/26/24 Ania Spencer 12/14/24 12/26/24 Ania Spencer 01/09/25 Marta Ovalle Rn Peritoneal DialysisTarper 05/25/23 documented as of this encounter
--- OUTSIDE RECORDS SUMMARY | 2025-01-09 13:39 | XMS_ITS | Encounter Summary ---
Author Organization [employer] Address [address] [facility] 7t [place] [address] Care Team Providers Care Wallpaper Cleaner Name Role Phone Name, Kiel BAILEY Primary Care Provider [phone] Katlyn Rodriguez PharmD Unavailable Nehal Ann RN Unavailable Unavailable Ania Spencer Unavailable Opal Carrasquillo Unavailable Ania Spencer Unavailable Ania Spencer Unavailable Reason for Visit * Reason Onset Date Comments Durable Medical Equipment 12/06/2022 Encounter Details Date Type Department Care Team (Late st Contact Info) Description 12/06/2022 Telephone [facility] MED[facility]INE 230 [place], [place] [phone] Name, MD Kiel 230 [place] [address] Durable Medical Equipment Social History Tobacco Use [...] to message above. Please contact pt at [phone] (Turkish) * Telephone Encounter - Jean-Paul Finch - 12/06/2022 3:29 PM EDT Tc from pt requesting status on some bed absorbant pads to not stain bed. Please contact pt at [phone] Turkish Speaker documented in this encounter Plan of Treatment Upcoming Encounters Date Type Department Care Team (Late st Contact Info) Description 01/10/2025 11:30 AM EST Office Visit [facility] MEDICINE [address] [place] [address] Name, MD Kiel J[place], [place] 02/04/2025 11:30 AM EST Clinical Support [address] [phone] Opal Steiner RN 02/08/2025 9:30 AM EST Medication Management [address] [phone] Puia, Katlyn, PharmD [address] [place] [address] documented as of this encounter Goals Goal [...] documented as of this encounter Care Teams Wallpaper Cleaner Relationship Specialty Start Date End Date Name, MD Kiel [address] [place] [address] PCP - General Family Medicine 07/15/15 Puia, Katlyn, PharmD [address] [place] [address] Pharmacist Internal Medicine 10/08/22 Nehal Ann, MARINA [address] [place] [address] Registered Nurse Family Medicine 08/20/24 10/29/24 Ania Spencer 08/20/24 11/26/24 Opal Carrasquillo Registered Nurse 10/29/24 11/26/24 Ania Spencer 12/14/24 12/26/24 Ania Spencer 01/09/25 Marta Ovalle Asbestos Abatement WorkerLadle Liner 05/25/23 documented as of this encounter
--- OUTSIDE RECORDS SUMMARY | 2025-01-09 13:39 | XMS_ITS | Encounter Summary ---
Author Organization [employer] Address [address] [place] [address] 7t [place] [address] Care Team Providers Care Operations Supervisor 2Nd Shift Name Role Phone Name, Kiel BAILEY Primary Care Provider Katlyn Rodriguez PharmD Unavailable Nehal Ann RN Unavailable Unavailable Ania Spencer Unavailable Opal Carrasquillo Unavailable Ania Spencer Unavailable Ania Spencer Unavailable Reason for Visit * Reason Comments Med Refill Encounter Details Date Type Department Care Team (Late st Contact Info) Description 06/28/2022 Refill [facility] MED[facility]INE 230 [place], [place] [phone] Name, MD Kiel 230 [place], [place] [phone] Chronic pain syndrome Social History Tobacco Use [...] Description 01/10/2025 11:30 AM EST Office Visit [address] [address] Name, MD Kiel [address] [place] [address] 02/04/2025 11:30 AM EST Clinical Support [address] [address] Opal Steiner, MARINA 02/08/2025 9:30 AM EST Medication Management [address] [address] Katlyn Rodriguez PharmD [address] [place] [address] documented as of this encounter Visit Diagnoses Diagnosis Chronic pain syndrome documented in this encounter Care Teams Operations Supervisor 2Nd Shift Relationship Specialty Start Date End Date Name, MD Kiel [address] [place] [address] PCP - General Family Medicine 07/15/15 Katlyn Rodriguez, PharmD [address] [place] [address] Pharmacist Internal Medicine 10/08/22 Nehal Ann, MARINA [address] [place] [address] Registered Nurse Family Medicine 08/20/24 10/29/24 Ania Spencer 08/20/24 11/26/24 Opal Carrasquillo Registered Nurse 10/29/24 11/26/24 Ania Spencer 12/14/24 12/26/24 Ania Spencer 01/09/25 Marta Ovalle Optical MechanicLicensed Staff Mft 05/25/23 documented as of this encounter
--- OUTSIDE RECORDS SUMMARY | 2025-01-09 13:39 | XMS_ITS | Encounter Summary ---
Author Organization [employer] Address [address] [place] [address] 7t [place] [address] Care Team Providers Care Fruit And Vegetable Classer Name Role Phone Name, Kiel BAILEY Primary Care Provider [phone] Katlyn Rodriguez PharmD Unavailable eNhal Ann RN Unavailable Unavailable Ania Spencer Unavailable Opal Carrasquillo Unavailable Ania Spencer Unavailable Ania Spencer Unavailable Reason for Visit * Reason Comments Med Refill Encounter Details Date Type Department Care Team (Late st Contact Info) Description 02/10/2022 Refill [facility] [address] [place], [place] [phone] Name, MD Kiel [address] [place], [place] [phone] Chronic pain syndrome (Primary Dx) Social History [...] 01/10/2025 11:30 AM EST Office Visit [address] [address] Name, MD Kiel [address] [place] [address] 02/04/2025 11:30 AM EST Clinical Support [address] [address] Opal Steiner, RN 02/08/2025 9:30 AM EST Medication Management [address] [address] Katlyn Rodriguez PharmD [address] [place] [address] documented as of this encounter Visit Diagnoses Diagnosis Chronic pain syndrome- Primary documented in this encounter Care Teams Fruit And Vegetable Classer Relationship Specialty Start Date End Date Name, MD Kiel [address] [place] [address] PCP - General Family Medicine 07/15/15 Katlyn Rodriguez, PharmD [address] [place] [address] Pharmacist Internal Medicine 10/08/22 Nehal Ann, RN [address] [place] [address] Registered Nurse Family Medicine 08/20/24 10/29/24 Ania Spencer 08/20/24 11/26/24 Opal Carrasquillo Registered Nurse 10/29/24 11/26/24 Ania Spencer 12/14/24 12/26/24 Ania Spencer 01/09/25 Marta Ovalle Final Block Press OperatorJewel Corner Brushing Machine Operator 05/25/23 documented as of this encounter
--- OUTSIDE RECORDS SUMMARY | 2025-01-09 13:39 | XMS_ITS | Clinical Summary ---
Author Organization [facility] Address [address] [place] [address] Care Team Providers Care Network Security Officer Name Role Phone Name, Kiel BAILEY Primary Care Provider [phone] Allergies Active Allergy Reactions Criticality Noted Date [...] age to complete this topic Care Teams Network Security Officer Relationship Specialty Start Date End Date Name, MD Kiel [address] [facility] [place] [facility] [place] [address] PCP - General Internal Medicine 04/17/18
--- OUTSIDE RECORDS SUMMARY | 2025-01-09 13:39 | XMS_ITS | Encounter Summary ---
Author Organization [employer] Address [address] [place] [address] 7t [place] [address] Care Team Providers Care Grape Crusher Name Role Phone Name, Kiel BAILEY Primary Care Provider [phone] Katlyn Rodriguez PharmD Unavailable Nehal Ann RN Unavailable Unavailable Ania Spencer Unavailable Opal Carrasquillo Unavailable Ania Spencer Unavailable Ania Spencer Unavailable Reason for Visit * Reason Onset Date Comments Durable Medical Equipment 01/24/2023 Encounter Details Date Type Department Care Team (Late st Contact Info) Description 01/24/2023 Telephone [facility] MEDICINE [address] [place], [place] [phone] Name, MD Kiel [address] [place] [address] Durable Medical Equipment Social History Tobacco Use [...] to errol. Any questions, contact pt at [phone] documented in this encounter Plan of Treatment Upcoming Encounters Date Type Department Care Team (Late st Contact Info) Description 01/10/2025 11:30 AM EST Office Visit [address] [address] Name, MD Kiel [address] [place] [address] 02/04/2025 11:30 AM EST Clinical Support [address] [address] Opal Steiner, RN 02/08/2025 9:30 AM EST Medication Management [address] [address] Katlyn Rodriguez, Bin [address] [place] [address] documented as of this encounter Goals Goal [...] documented as of this encounter Care Teams Grape Crusher Relationship Specialty Start Date End Date Name, MD Kiel [address] [place] [address] PCP - General Family Medicine 07/15/15 Puia, Katlyn, PharmD [address] [place] [address] Pharmacist Internal Medicine 10/08/22 Nehal Ann, MARINA [address] [place] [address] Registered Nurse Family Medicine 08/20/24 10/29/24 Ania Spencer 08/20/24 11/26/24 Opal Carrasquillo Registered Nurse 10/29/24 11/26/24 Ania Spencer 12/14/24 12/26/24 Ania Spencer 01/09/25 Marta Ovalle Flight CoordinatorBottle Dealer 05/25/23 documented as of this encounter
--- OUTSIDE RECORDS SUMMARY | 2025-01-09 13:39 | XMS_ITS | Encounter Summary ---
Author Organization [employer] Address [address] [place] [address] 7t [place] [address] Care Team Providers Care Hazardous Substances Engineer Name Role Phone Name, Kiel BAILEY Primary Care Provider [phone] Katlyn Rodriguez PharmD Unavailable Nehal Ann RN Unavailable Unavailable Ania Spencer Unavailable Opal Carrasquillo Unavailable Ania Spencer Unavailable Ania Spencer Unavailable Encounter Details Date Type Department Care Team (Late st Contact Info) Description 07/01/2022 Abstract [facility] MED[facility]INE [address] [place], [place] [phone] Name, MD Kiel 230 [place], [place] [phone] Social History Tobacco Use Types Packs/Day Years [...] Description 01/10/2025 11:30 AM EST Office Visit [address] [address] Name, MD Kiel Jai [place], [place] 02/04/2025 11:30 AM EST Clinical Support [address] [phone] Opal Steiner RN 02/08/2025 9:30 AM EST Medication Management [address] [phone] Katlyn Rodriguez PharmD [address] [place] [address] documented as of this encounter Procedures Procedure Name Priority Date/Time Associated Diagnosis Comments COLONOSCOPY Routine 07/01/2022 4:37 PM EDT documented in this encounter Results * Colonoscopy (07/01/2022 4:37 PM EDT) Colonoscopy Normal Normal Narrative Emely Devine - 07/01/2022 4:37 PM EDT Recommended 5 year follow up ([facility]) Historical Provider HEALTH MAINTENANCE Final Result documented in this encounter Visit Diagnoses Not on filedocumented in this encounter Care Teams Hazardous Substances Engineer Relationship Specialty Start Date End Date Name, MD Kiel Jai [place], [place] PCP - General Family Medicine 07/15/15 Katlyn Rodriguez PharmD [address] [place] [address] Pharmacist Internal Medicine 10/08/22 Nehal Ann RN [address] [place] [address] Registered Nurse Family Medicine 08/20/24 10/29/24 Ania Spencer 08/20/24 11/26/24 Opal Carrasquillo Registered Nurse 10/29/24 11/26/24 Ania Spencer 12/14/24 12/26/24 Ania Spencer 01/09/25 Marta Ovalle Tool Crib ManagerSkiver Box Toe 05/25/23 documented as of this encounter
--- OUTSIDE RECORDS SUMMARY | 2025-01-09 13:39 | XMS_ITS | Encounter Summary ---
Author Organization [employer] Address [address] [place] [address] 7t [place] [address] Care Team Providers Care Hypnotherapist Name Role Phone Name, Kiel BAILEY Primary Care Provider [phone] Katlyn Rodriguez PharmD Unavailable Nehal Ann RN Unavailable Unavailable Ania Spencer Unavailable Opal Carrasquillo Unavailable [phone] Ania Spencer Unavailable Ania Spencer Unavailable Reason for Visit * Reason Comments Med Refill Encounter Details Date Type Department Care Team (Late st Contact Info) Description 07/02/2022 Refill [facility] MEDICINE [address] [place], [place] [phone] Name, MD Kiel [address] [place], [place] [phone] Chronic pain syndrome Social History Tobacco Use [...] Description 01/10/2025 11:30 AM EST Office Visit [address] [address] Name, MD Kiel [address] [place] [address] 02/04/2025 11:30 AM EST Clinical Support [address] [address] Opal Steiner, MARINA 02/08/2025 9:30 AM EST Medication Management [address] [address] Katlyn Rodriguez PharmD [address] [place] [address] documented as of this encounter Visit Diagnoses Diagnosis Chronic pain syndrome documented in this encounter Care Teams Hypnotherapist Relationship Specialty Start Date End Date Name, MD Kiel [address] [place] [address] PCP - General Family Medicine 07/15/15 Katlyn Rodriguez, PharmD [address] [place] [address] Pharmacist Internal Medicine 10/08/22 Nehal Ann, MARINA [address] [place] [address] Registered Nurse Family Medicine 08/20/24 10/29/24 Ania Spencer 08/20/24 11/26/24 Opal Carrasquillo Registered Nurse 10/29/24 11/26/24 Ania Spencer 12/14/24 12/26/24 Ania Spencer 01/09/25 Marta Ovalle Swimming InstructorTeenage Program Director 05/25/23 documented as of this encounter
--- OUTSIDE RECORDS SUMMARY | 2025-01-09 13:39 | XMS_ITS | Encounter Summary ---
Author Organization [employer] Address [address] [place] [address] 7t [place] [address] Care Team Providers Care Distributor Of Directories Name Role Phone Name, Kiel BAILEY Primary Care Provider [phone] Katlyn Rodriguez PharmD Unavailable Nehal Ann RN Unavailable Unavailable Ania Spencer Unavailable Opal Carrasquillo Unavailable Ania Spencer Unavailable Ania Spencer Unavailable Reason for Visit * Reason Comments Med Refill Encounter Details Date Type Department Care Team (Late st Contact Info) Description 07/16/2022 Refill [facility] MEDICINE 230 [place], [place] [phone] Name, MD Kiel 230 [place], [place] [phone] Chronic pain syndrome Social History Tobacco Use [...] In the last 10 days, have alpesh u been in contact with someone who was confirmed or suspected to have Coronavirus/COVID-19? No / Unsure 07/14/2022 2:29 PM EDT documented as of this encounter Plan of Treatment Upcoming Encounters Date Type Department Care Team (Late st Contact Info) Description 01/10/2025 11:30 AM EST Office Visit [address] [address] Name, MD Kiel [address] [place] [address] 02/04/2025 11:30 AM EST Clinical Support [address] [phone] Opal Steiner RN 02/08/2025 9:30 AM EST Medication Management [address] [phone] Katlyn Rodriguez PharmD [address] [place] [address] documented as of this encounter Visit Diagnoses Diagnosis Chronic pain syndrome documented in this encounter Additional Health Concerns Assessment Noted Time PHQ-9 Depression Total Score: 7 07/15/19 23 2:39 PM EDT documented as of this encounter Care Teams Distributor Of Directories Relationship Specialty Start Date End Date NameKiel MD [address] [place] [address] PCP - General Family Medicine 07/15/15 Katlyn Rodriguez, PharmD [address] [place] [address] Pharmacist Internal Medicine 10/08/22 Nehal Ann, MARINA [address] [place] [address] Registered Nurse Family Medicine 08/20/24 10/29/24 Ania Spencer 08/20/24 11/26/24 Opal Carrasquillo Registered Nurse 10/29/24 11/26/24 Ania Spencer 12/14/24 12/26/24 Ania Spencer 01/09/25 Marta Ovalle Line Assembly Utility WorkerSecurity Systems Administrator 05/25/23 documented as of this encounter
--- OUTSIDE RECORDS SUMMARY | 2025-01-09 13:39 | XMS_ITS | Encounter Summary ---
Author Organization [employer] Address [address] [place] [address] 7t [place] [address] Care Team Providers Care Food Beverage Attendant Name Role Phone Name, Kiel BAILEY Primary Care Provider Katlyn Rodriguez PharmD Unavailable Nehal Ann RN Unavailable Unavailable Ania Spencer Unavailable Opal Carrasquillo Unavailable Ania Spencer Unavailable Ania Spencer Unavailable Encounter Details Date Type Department Care Team (Late st Contact Info) Description 07/01/2022 Abstract [facility] MEDICINE 230 [place], [place] [phone] Name, MD Kiel 230 [place], [place] [phone] Social History Tobacco Use Types Packs/Day Years [...] Description 01/10/2025 11:30 AM EST Office Visit [address] [address] Name, [place] [address] 02/04/2025 11:30 AM EST Clinical Support [address] [address] Opal Steiner, MARINA 02/08/2025 9:30 AM EST Medication Management [address] [address] Katlyn Rodriguez PharmD [address] [place] [address] documented as of this encounter Visit Diagnoses Not on filedocumented in this encounter Care Teams Food Beverage Attendant Relationship Specialty Start Date End Date Name, MD Kiel [address] [place] [address] PCP - General Family Medicine 07/15/15 Katlyn Rodriguez, PharmD [address] [place] [address] Pharmacist Internal Medicine 10/08/22 Nehal Ann, MARINA [address] [place] [address] Registered Nurse Family Medicine 08/20/24 10/29/24 Ania Spencer 08/20/24 11/26/24 Opal Carrasquillo Registered Nurse 10/29/24 11/26/24 Ania Spencer 12/14/24 12/26/24 Ania Spencer 01/09/25 Marta Ovalle It Service ManagerBowling Alley Manager 05/25/23 documented as of this encounter
--- OUTSIDE RECORDS SUMMARY | 2025-01-09 13:40 | XMS_ITS | Clinical Summary ---
Author Organization [facility] Address [address] [place] [address] [place] [address] Phone Care Team Providers Care Parking Lot Attendant Name Role Phone Unavailable Primary Care Provider [...] Devices Not on file Insurance [employer] [place] [place] [address] [place] [address] [place] [address] [place] [address] [place] [address] [place] [address] [place] [address] [employer] Additional Source Comments The information contained in this document represents components of the legal health record. It is not the complete legal health record.[facility]
--- OUTSIDE RECORDS SUMMARY | 2025-01-09 13:40 | XMS_ITS | Encounter Summary ---
Author Organization [employer] Address [address] [place] [address] 7t [place] [address] Care Team Providers Care Sampler Ovens Name Role Phone Name, Kiel BAILEY Primary Care Provider [phone] Katlyn Rodriguez PharmD Unavailable Nehal Ann RN Unavailable Unavailable Ania Spencer Unavailable Opal Carrasquillo Unavailable Ania Spencer Unavailable Ania Spencer Unavailable Reason for Visit * Reason Onset Date Comments FYI 08/03/2024 Encounter Details Date Type Department Care Team (Late st Contact Info) Description 08/03/2024 Telephone [facility] [address] [place], [place] [phone] Name, MD Kiel [address] [place], [place] [phone] FY Social History Tobacco Use Types Packs/Day [...] will be admitting pt for OT and mcfp. If any questions you can contact pt at [phone], documented in this encounter Plan of Treatment Upcoming Encounters Date Type Department Care Team (Late st Contact Info) Description 01/10/2025 11:30 AM EST Office Visit [facility] [address] [place] [address] [phone] Name, MD [facility]iel [facility] [place] 02/04/2025 11:30 AM EST Clinical Support [facility] [place], [place] [phone] Opal Steiner RN 02/08/2025 9:30 AM EST Medication Management [address] [phone] Puia, Katlyn, PharmD [facility]ai [facility] [place], [place] documented as of this encounter Goals [...] documented as of this encounter Care Teams Sampler Ovens Relationship Specialty Start Date End Date Name, MD Kiel Jai [place], [place] PCP - General Family Medicine 07/15/15 Puia, Katlyn, PharmD Jai [facility] [place], [place] Pharmacist Internal Medicine 10/08/22 Nehal Ann RN Jai [place], [place] Registered Nurse Family Medicine 08/20/24 10/29/24 Ania Spencer 08/20/24 11/26/24 Opal Carrasquillo Registered Nurse 10/29/24 11/26/24 Ania Spencer 12/14/24 12/26/24 Ania Spencer 01/09/25 Marta Ovalle Gore InserterHead Concierge 05/25/23 documented as of this encounter
--- OUTSIDE RECORDS SUMMARY | 2025-01-09 13:40 | XMS_ITS | Encounter Summary ---
Author Organization [employer] Address [address] [place] [address] 7t [place] [address] Care Team Providers Care Prisoner Classification Interviewer Name Role Phone Name, Kiel BAILEY Primary Care Provider [phone] Katlyn Rodriguez PharmD Unavailable Nehal Ann RN Unavailable Unavailable Ania Spencer Unavailable Opal Carrasquillo Unavailable Ania Spencer Unavailable Ania Spencer Unavailable Reason for Visit * Reason Onset Date Comments Appointment Request 02/29/2024 Encounter Details Date Type Department Care Team (Late st Contact Info) Description 02/29/2024 Telephone [facility] MEDICINE [address] [place], [place] [phone] Name, MD Kiel 230 [place], [place] [phone] Appointment Request Social History Tobacco Use Types [...] different date and time. Pt does speak icelandic so you will need an photo editor. documented in this encounter Plan of Treatment Upcoming Encounters Date Type Department Care Team (Late st Contact Info) Description 01/10/2025 11:30 AM EST Office Visit [address] [address] Name, MD Kiel [address] [place] [address] 02/04/2025 11:30 AM EST Clinical Support [address] [address] Opal Steiner MARINA 02/08/2025 9:30 AM EST Medication Management [facility] MED[facility]INE [address] [place] [address] PuiaKatlyn, PharmD 230 [place] [address] documented as of this encounter Goals Goal [...] documented as of this encounter Care Teams Prisoner Classification Interviewer Relationship Specialty Start Date End Date Name, MD Kiel 230 [place] [address] PCP - General Family Medicine 07/15/15 Puia, Katlyn, PharmD [address] [place] [address] Pharmacist Internal Medicine 10/08/22 Nehal Ann, MARINA [address] [place] [address] Registered Nurse Family Medicine 08/20/24 10/29/24 Ania Spencer 08/20/24 11/26/24 Opal Carrasquillo Registered Nurse 10/29/24 11/26/24 Ania Spencer 12/14/24 12/26/24 Ania Spencer 01/09/25 Marta Ovalle Channel Marketing Program ManagerCoat Checker 05/25/23 documented as of this encounter
--- OUTSIDE RECORDS SUMMARY | 2025-01-09 13:40 | XMS_ITS | Encounter Summary ---
Author Organization [employer] Address [address] [facility] 7t [place] [address] Care Team Providers Care Cryogenics Engineer Name Role Phone Name, Kiel BAIELY Primary Care Provider [phone] Katlyn Rodriguez PharmD Unavailable [phone] Ania Spencer Unavailable Ania Spencer Unavailable Reason for Visit * Reason Comments Med Refill Encounter Details Date Type Department Care Team (Late st Contact Info) Description 12/07/2024 Refill [facility] 230 [place] [address] Name, MD Kiel [address] [place], [place] 1993140 Cerebellar mass; Chronic intractable headache, unspecified headache [...] 01/10/2025 11:30 AM EST Office Visit [address] [address] Name, MD Kiel [address] [place] [address] 02/04/2025 11:30 AM EST Clinical Support [address] [address] Opal Steinre, MARINA 02/08/2025 9:30 AM EST Medication Management [address] [address] Katlyn Rodriguez PharmD [address] [place] [address] documented as of this encounter Goals Goal Patient Goal Type Associated Problems Recent Progress Patient-Stated? Author Record your blood pressure once per day Blood Pressure No Katlyn Rodriguez PharmD Blood Pressure < 140/90 Blood Pressure 136/87(2024 11:09 AM EST) No Katlyn Rodriguez, PharmD Hemoglobin A1c < 7 Result Component 7.8( 5 1:16 PM EST) No AdeniaKatlyn, PharmD Record your blood sugar as directed Result Component No Reid Rodriguezyssa, PharmD documented as of this encounter Visit Diagnoses Diagnosis Cerebellar mass Chronic intractable headache, unspecified headache type documented in this encounter Additional Health Concerns Assessment Noted Time PHQ-9 Depression Total Score: 7 09/05/19 11:46 AM EDT documented as of this encounter Care Teams Cryogenics Engineer Relationship Specialty Start Date End Date Name, MD Kiel [address] [place] [address] PCP - General Family Medicine 07/15/15 Katlyn Rodriguez PharmD [address] [place] [address] Pharmacist Internal Medicine 10/08/22 Ania Spencer 12/14/24 12/26/24 Ania Spencer 01/09/25 Marta Ovalle Executive Services AdministratorBillet Sawyer 05/25/23 documented as of this encounter
--- OUTSIDE RECORDS SUMMARY | 2025-01-09 13:40 | XMS_ITS | Encounter Summary ---
Author Organization [employer] Address [address] [facility] 7t [place] [address] Care Team Providers Care Meat Counter Clerk Name Role Phone Name, Kiel BAILEY Primary Care Provider [phone] Katlyn Rodriguez PharmD Unavailable Nehal Ann RN Unavailable Unavailable Ania Spencer Unavailable Opal Carrasquillo Unavailable Ania Spencer Unavailable Ania Spencer Unavailable Reason for Visit * Reason Comments Med Refill Encounter Details Date Type Department Care Team (Late st Contact Info) Description 06/08/2024 Refill [facility] & PEDS [address] [place], [place] [phone] Name, MD Kiel 230 [place] [address] Chronic pain syndrome Social History Tobacco Use [...] Description 01/10/2025 11:30 AM EST Office Visit [address] [address] Name, MD Kiel [address] [place] [address] 02/04/2025 11:30 AM EST Clinical Support [address] [address] Opal Steiner, RN 02/08/2025 9:30 AM EST Medication Management [address] [address] Katlyn Rodriguez, AngieD [address] [place] [address] documented as of this encounter Goals Goal Patient Goal Type Associated Problems Recent Progress Patient-Stated? Author Record your blood pressure once per day Blood Pressure No Adenia, Katlyn, PharmD Blood Pressure < 140/90 Blood [...] as of this encounter Care Teams Meat Counter Clerk Relationship Specialty Start Date End Date Name, MD Kiel 230 [place] [address] PCP - General Family Medicine 07/15/15 Puia, Katlyn, PharmD 230 [place] [address] Pharmacist Internal Medicine 10/08/22 Nehal Ann RN 230 [place] [address] Registered Nurse Family Medicine 08/20/24 10/29/24 Ania Spencer 08/20/24 11/26/24 Opal Carrasquillo Registered Nurse 10/29/24 11/26/24 Ania Spencer 12/14/24 12/26/24 Ania Spencer 01/09/25 Marta Ovalle Case Preparer And LinerMetal Tile Setter 05/25/23 documented as of this encounter
--- OUTSIDE RECORDS SUMMARY | 2025-01-09 13:40 | XMS_ITS | Encounter Summary ---
Author Organization [employer] Address [address] [facility] 7t [place] [address] Care Team Providers Care Energy Analyst Name Role Phone Name, Kiel BAILEY Primary Care Provider [phone] Katlyn Rodriguez PharmD Unavailable Nehal Ann RN Unavailable Unavailable Ania Spencer Unavailable Opal Carrasquillo Unavailable Ania Spencer Unavailable Ania Spencer Unavailable Reason for Visit * Reason Comments Med Refill Encounter Details Date Type Department Care Team (Late st Contact Info) Description 06/08/2024 Refill [facility] MED & PEDS [address] [place], [place] [phone] Name, MD Kiel 230 [place] [address] Chronic pain syndrome Social History Tobacco Use [...] 01/10/2025 11:30 AM EST Office Visit [address] [address] Name, MD Kiel [address] [place] [address] 02/04/2025 11:30 AM EST Clinical Support [address] [address] Opal Steiner, RN 02/08/2025 9:30 AM EST Medication Management [address] [address] Katlyn Rodriguez, AngieD [address] [place] [address] documented as of this encounter Goals Goal [...] documented as of this encounter Care Teams Energy Analyst Relationship Specialty Start Date End Date Name, MD Kiel [address] [place] [address] PCP - General Family Medicine 07/15/15 Puia, Katlyn, PharmD 230 [place] [address] Pharmacist Internal Medicine 10/08/22 Nehal Ann RN 230 [place] [address] Registered Nurse Family Medicine 08/20/24 10/29/24 Ania Spencer 08/20/24 11/26/24 Opal Carrasquillo Registered Nurse 10/29/24 11/26/24 Ania Spencer 12/14/24 12/26/24 Ania Spencer 01/09/25 Marta Ovalle Security Systems AdministratorClay Digger 05/25/23 documented as of this encounter
--- OUTSIDE RECORDS SUMMARY | 2025-01-09 13:40 | XMS_ITS | Encounter Summary ---
Author Organization [employer] Address [address] [place] [address] 7t [place] [address] Care Team Providers Care Compound Finisher Name Role Phone Name, Kiel BAILEY Primary Care Provider [phone] Katlyn Rodriguez PharmD Unavailable Nehal Ann RN Unavailable Unavailable Ania Spencer Unavailable Opal Carrasquillo Unavailable [phone] Ania Spencer Unavailable Ania Spencer Unavailable Reason for Visit * Reason Onset Date Comments FYI 08/03/2024 Encounter Details Date Type Department Care Team (Late st Contact Info) Description 08/03/2024 Telephone [facility] MEDICINE 230 [place], [place] [phone] Name, MD Kiel 230 [place], [place] [phone] FY Social History Tobacco Use Types Packs/Day [...] scheduled 08/06/24. * Telephone Encounter - Jennifer Admas - 08/03/2024 2:00 PM EDT Tc from [facility] with N stating pt has an upcoming appointment with pcp and would like to report: 1) Pt was discharged yesterday 08/02. Reason: COPD. 2) F/u Left ear symptoms. Pt unable to hear. 3) F/u pull up prescription. Any questions contact [facility] [phone] documented in this encounter Plan of Treatment Upcoming Encounters Date Type Department Care Team (Late st Contact Info) Description 01/10/2025 11:30 AM EST Office Visit [address] [address] Name, MD Kiel Jai [place], [place] 02/04/2025 11:30 AM EST Clinical Support [address] [phone] Opal Steiner RN 02/08/2025 9:30 AM EST Medication Management [address] [phone] Puia, Katlyn, PharmD [address] [place] [address] documented as of this encounter Goals Goal [...] documented as of this encounter Care Teams Compound Finisher Relationship Specialty Start Date End Date Name, MD Kiel Jai [place], [place] PCP - General Family Medicine 07/15/15 Puia, Katlyn, PharmD [address] [place] [address] Pharmacist Internal Medicine 10/08/22 Nehal Ann, MARINA [address] [facility] [place] [address] Registered Nurse Family Medicine 08/20/24 10/29/24 Ania Spencer 08/20/24 11/26/24 Opal Carrasquillo Registered Nurse 10/29/24 11/26/24 Ania Spencer 12/14/24 12/26/24 Ania Spencer 01/09/25 Marta Ovalle Cardboard InserterSolid Waste Analyst 05/25/23 documented as of this encounter
--- OUTSIDE RECORDS SUMMARY | 2025-01-09 13:40 | XMS_ITS | Encounter Summary ---
Author Organization [employer] Address [address] [place] [address] 7t [place] [address] Care Team Providers Care Retail Commission Sales Associate Name Role Phone Name, Kiel BAILEY Primary Care Provider [phone] Katlyn Rodriguez PharmD Unavailable Nehal Ann RN Unavailable Unavailable Ania Spencer Unavailable Opal Carrasquillo Unavailable Ania Spencer Unavailable Ania Spencer Unavailable Reason for Referral * Consultation (Routine) - Closed Specialty Diagnoses / Procedures Referred By Carroll hoover Referred To Contact Occupational Therapy Diagnoses Left arm weakness Lizzie Alfaro NP [address] [place] [address] Phone: tel: fax: [facility] Physical Therapy [address] [place] [address] Phone: tel: fax: Referral ID Status Reason Start Date Expiration Date V isits Requested Visits Authorized [id number] Closed Specialty Services Required 09/06/2024 09/06/2025 20 20 Encounter Details Date Type Department Care Team ([facility] st Contact Info) Description 09/06/2024 Orders Only [facility] MEDICINE [address] [place] [address] Lizzie Alfaro NP 230 [place] [address] Left arm weakness (Primary Dx) Social History [...] ([facility] st Contact Info) Description 01/10/2025 11:30 AM EST Office Visit [facility] MEDICINE [address] [place] [address] Name, MD Kiel 230 [place] [address] 02/04/2025 11:30 AM EST Clinical Support [address] [phone] Opal Steiner RN 02/08/2025 9:30 AM EST Medication Management [address] [phone] Puia, Katlyn, PharmD [address] [place] [address] Scheduled Referrals Name Type Priority Associated Diagnoses [...] as of this encounter Care Teams Retail Commission Sales Associate Relationship Specialty Start Date End Date Name, MD Kiel Jai [place], [place] PCP - General Family Medicine 07/15/15 Puia, Katlyn, PharmD [address] [place] [address] Pharmacist Internal Medicine 10/08/22 Nehal Ann RN [address] [place] [address] Registered Nurse Family Medicine 08/20/24 10/29/24 Ania Spencer 08/20/24 11/26/24 Opal Carrasquillo Registered Nurse 10/29/24 11/26/24 Ania Spencer 12/14/24 12/26/24 Ania Spencer 01/09/25 Marta Ovalle Supervisor GraphiteAnesthesiologist/Physician 05/25/23 documented as of this encounter
--- OUTSIDE RECORDS SUMMARY | 2025-01-09 13:40 | XMS_ITS | Encounter Summary ---
Author Organization [facility] Address [address] [facility] [address] [place] [address] Phone Care Team Providers Care Shrub Planter Name Role Phone Unavailable Primary Care Provider Unavailabl e Encounter Details Date Type Department Care Team (Latest Contact Info) Description 01/04/2020 Ancillary Orders [facility] [address] [place] [address] [place] [address] Bright Jesus, DO [address] [place] [address] Chest pain, unspecified type Social History Tobacco [...] It is not the complete legal health record.[facility]
--- OUTSIDE RECORDS SUMMARY | 2025-01-09 13:40 | XMS_ITS | Encounter Summary ---
Author Organization [facility] Address [address] [facility] [address] [place] [address] Phone Care Team Providers Care Pan Reclaim Processor Name Role Phone Unavailable Primary Care Provider Unavailabl e Encounter Details Date Type Department Care Team (Late st Contact Info) Description 01/04/2020 Procedure Pass [facility] [address] [place] [address] [place], [place] [phone] Social History Tobacco Use Types Packs/Day Years [...] It is not the complete legal health record.[facility]
--- OUTSIDE RECORDS SUMMARY | 2025-01-09 13:41 | XMS_ITS | Encounter Summary ---
Author Organization [employer] Address [address] [place] [address] 7t [place] [address] Care Team Providers Care Oracle Fusion Developer Name Role Phone Name, Kiel BAILEY Primary Care Provider [phone] Katlyn Rodriguez PharmD Unavailable [phone] Nehal Ann RN Unavailable Unavailable Ania Spencer Unavailable Opal Carrasquillo Unavailable [phone] Ania Spencer Unavailable Ania Spencer Unavailable Reason for Referral * Consultation (Routine) - Closed Specialty Diagnoses / Procedures Referred By Contremy t Referred To Contact Occupational Therapy Diagnoses Weakness of both lower extremities Hemiparesis of left dominant side as late effect of cerebral infarction (CMS/HCC) (HCC) Lizzie Alfaro NP [address] [place] [address] Phone: tel: fax: [facility] Physical Therapy [address] [place] [address] Phone: tel: fax: Referral ID Status Reason Start Date Expiration Date V isits Requested Visits Authorized [id number] Closed Specialty Services Required 09/06/2024 09/06/2025 20 20 * Consultation (Routine) - Closed Specialty Diagnoses / Procedures Referred By Contremy hoover Referred To Contact Physical Therapy Diagnoses Weakness of both lower extremities Lizzie Alfaro NP [address] [place] [address] Phone: tel: fax: [facility] Physical Therapy [address] [place], [place] Phone: tel: fax: Referral ID Status Reason Start Date Expiration Date V isits Requested Visits Authorized [id number] Closed Specialty Services Required 09/06/2024 09/06/2025 20 20 Encounter Details Date Type Department Care Team (Late st Contact Info) Description 09/06/2024 Orders Only [facility] MEDICINE 230 [place], [place] [phone] Lizzie Alfaro NP [address] [place], [place] [phone] Weakness of both lower extremities (Primary Dx); [...] Description 01/10/2025 11:30 AM EST Office Visit [address] [address] Name, MD Kiel [address] [place] [address] 02/04/2025 11:30 AM EST Clinical Support [address] [address] Opal Steiner RN 02/08/2025 9:30 AM EST Medication Management [address] [address] Katlyn Rodriguez PharmD [address] [place] [address] Scheduled Referrals Name Type Priority Associated Diagnoses Orde r Schedule Referral to Physical Therapy Outpatient Referral Routine Weakness of both lower extremities Expected: 09/06/2024 (Approximate), Expires: 09/06/2025 Referral to Occupational Therapy Outpatient Referral Routine Weakness of both lower extremities Hemiparesis of left dominant side as late effect of cerebral infarction ([facility]/HCC) Expected: 09/06/2024 (Approximate), Expires: 09/06/2025 documented as [...] documented as of this encounter Care Teams Oracle Fusion Developer Relationship Specialty Start Date End Date Name, MD Kiel 230 [place] [address] PCP - General Family Medicine 07/15/15 Katlyn Rodriguez, PharmD [address] [place] [address] Pharmacist Internal Medicine 10/08/22 Nehal Ann, MARINA [address] [place] [address] Registered Nurse Family Medicine 08/20/24 10/29/24 Ania Spencer 08/20/24 11/26/24 Opal Carrasquillo Registered Nurse 10/29/24 11/26/24 Ania Spencer 12/14/24 12/26/24 Ania Spencer 01/09/25 Marta Ovalle Change OverConnection Worker 05/25/23 documented as of this encounter
== END 2025-01-09 01:39 | disposition home or self-care (01) ==
PROVIDERS: Physician Assistant; Physician Assistant Medical; Emergency Provider Emergency Medicine Emergency Medical Services; PCP Internal Medicine Geriatric Medicine
DX: J44.0 Chronic obstructive pulmonary disease with (acute) lower respiratory infection (principal); J20.9 Acute bronchitis, unspecified; I10 Essential (primary) hypertension; E11.9 Type 2 diabetes mellitus without complications; I69.354 Hemiplegia and hemiparesis following cerebral infarction affecting left non-dominant side; F17.210 Nicotine dependence, cigarettes, uncomplicated; Z88.0 Allergy status to penicillin; Z88.8 Allergy status to other drugs, medicaments and biological substances; Z91.041 Radiographic dye allergy status
CPT/HCPCS: 36415; 71046; 80048; 80076; 81003; 83735; 84484; 85025; 87637; 93005; 94640; 96365; 96366; 96375; 99284; 99285; J0456; J1885; J2919

== ENCOUNTER → 2025-01-08 15:15 | Outpatient (BNV) | payer MEDICAID, SELFPAY | PROVIDERS: Emergency Provider Emergency Medicine Emergency Medical Services; PCP Internal Medicine Geriatric Medicine; Visit Provider Internal Medicine | DX: R07.9 Chest pain, unspecified (principal); R06.02 Shortness of breath | CPT/HCPCS: 93010 ==

== ENCOUNTER → 2025-01-08 15:38 | Outpatient (BNV) | payer MEDICAID, SELFPAY | PROVIDERS: PCP Internal Medicine Geriatric Medicine; Visit Provider Radiology Diagnostic Radiology | DX: R07.9 Chest pain, unspecified (principal) | CPT/HCPCS: 71046 ==

== ENCOUNTER 2025-01-14 14:22 | Outpatient (AMB) | payer MEDICAID, SELFPAY ==
--- OUTSIDE RECORDS SUMMARY | 2023-11-24 08:53 | XMS_ITS | Encounter Summary ---
Author Organization [facility] Address [address] [place] [address] Care Team Providers Care Continuous Mining Machine Lode Miner Name Role Phone Name, Kiel BAILEY Primary Care Provider [phone] Encounter Details Date Type Department Care Team (Late st Contact Info) Description 11/24/2023 9:53 AM EDT Hospital Encounter TH HISTORIC ENCOUNTERS EASTERN CONVERSION ONLY Geoffrey-Art Vitale MD [address] [place] [phone] Social History Tobacco Use Types Packs/Day [...] 02/05/2024 6:47 AM Rosy New RN * [place] Suicide Severity Rating Scale (Screener/Recent Self-Report) Question [...] 2:17 PM Encounter Date: 11/24/2023 Status: Signed Processing Assistant: Art Davis MD (Physician) CHIEF COMPLAINT: Chief Complaint Patient presents with ? Follow-up Diffuse large B-cell lymphoma Stage III Completed 6 cycles of R-CHOP in July 23, 2018 IDENTIFIER:Sarita Puga is a 58 y.o. female. HPI: The patient returns for follow up of Large B-cell lymphoma. Here with her daughter , who is czech to cook islander cement breaker Patient reports that she has been doing [...] accompanied by her daughter and girlfriend. As Argentine to Chinese cement breaker assisted with the discussion. She had a [...] AM EST Office Visit Orthopedic Surgery - [place] [address] [phone] Wesley Garcia DPM [address] [phone] documented as of this encounter Procedures Procedure [...] documented as of this encounter Care Teams Continuous Mining Machine Lode Miner Relationship Specialty Start Date End Date Name, MD Kiel 4 [place], [place] PCP - General Internal Medicine 08/28/15 documented as of this encounter
--- OUTSIDE RECORDS SUMMARY | 2023-11-24 09:30 | XMS_ITS | Encounter Summary ---
Author Organization [facility] Address [address] [place] [address] Care Team Providers Care County Agricultural Agent Name Role Phone Name, Kiel BAILEY Primary Care Provider [phone] Encounter Details Date Type Department Care Team (Late st Contact Info) Description 11/24/2023 10:30 AM EDT Hospital Encounter TH HISTORIC ENCOUNTERS EASTERN CONVERSION ONLY Geoffrey-Art Vitale MD [address] [place] [phone] Social History Tobacco Use Types Packs/Day [...] 02/05/2024 6:47 AM Rosy New RN * [place] Suicide Severity Rating Scale (Screener/Recent Self-Report) Question [...] AM EST Office Visit Orthopedic Surgery - [place] [address] [phone] Wesley Garcia DPM [address] [phone] documented as of this encounter Visit Diagnoses Not on filedocumented in this encounter Additional Health Concerns Infection Onset Date Last Indicated Resolved Time Respiratory Rule-Out 02/05/2024 02/05/2024 024 8:09 AM EST COVID-19 Rule-Out 02/05/2024 02/05/2024 02/05/2024 8:09 AM EST documented as of this encounter Care Teams County Agricultural Agent Relationship Specialty Start Date End Date Name, MD Kiel 4 [place], [place] PCP - General Internal Medicine 08/28/15 documented as of this encounter
--- OUTSIDE RECORDS SUMMARY | 2025-01-10 11:30 | XMS_ITS | Encounter Summary ---
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, unspecified cerebrovascular disease type (CMS/HCC) (HCC) Cerebrovascular accident (CVA), unspecified mechanism (CMS/HCC) (HCC) Abnormal MRI of the head Procedures Mr Brain w/ and w/o Contrast Kiel Shaffer MD [address] [place] [address] Phone: tel: fax: [address] [address] Phone: tel: fax: Referral ID Status Reason Start Date Expiration Date V isits Requested Visits Authorized [id number] Authorized 01/10/2025 01/10/2026 1 1 Reason for Visit * Reason Comments Follow-up Encounter Details Date Type Department Care Team (Latest Contact Info) Description 01/10/2025 11:30 AM EST Office Visit [facility] [address] [place], [place] [phone] Kiel Shaffer MD [address] [place], [place] [phone] Hemiparesis of left dominant side as late effect of cerebrovascular disease, unspecified cerebrovascular disease type (CMS/HCC) (HCC) (Primary Dx); Cerebrovascular accident (CVA), unspecified mechanism (CMS/HCC) (HCC); Abnormal MRI of the head; Type 2 diabetes mellitus with other specified complication, with long-term current use of insulin (HCC) Social History Tobacco Use Types Packs/Day Years [...] Sign Reading Time Taken Comments Blood Pressure 139/89 01/10/2025 11:46 AM EST Pulse 82 01/10/2025 11:46 AM EST Temperature 36.4 C (97.5 F) 01/10/2025 11:46 AM EST Respiratory Rate 15 01/10/2025 11:46 AM EST Oxygen Saturation 99% 01/10/2025 11:46 AM EST Inhaled Oxygen Concentration - - Weight 108 kg (237 lb) 01/10/2025 11:46 AM EST Height 160 cm (5' 3 ) 01/10/2025 11:46 AM EST Body Mass Index 41.98 01/10/2025 11:46 AM EST documented in this encounter Progress Notes * Kiel Shaffer, - 01/10/2025 11:30 AM EST Subjective Patient ID: Sarita Puga is a 59 y.o. female who presents for Follow-up. Patient comes accompanied by her daughter. She is examined in a wheelchair. She has personal history of left-sided hemiparesis after a possible CVA back in May. Her daughter believes her mom is getting weaker on the left side for at least the past month. She thinks the weakness is worse since hermom stopped doing physical therapy. Patient still has occasional headaches and she also believes her left arm and leg are getting weaker. She has left shoulder pain as well after a fall back in November. No weakness on the right side, her speech is normal, no facial weakness. The patient and her daughter also requested a prescription for a new shower chair. Because of her weakness she has to sit down to take showers and the shower chair they have at home is broken. Review of Systems Constitutional: Negative for chills and fever. HENT: Negative for sore throat. Respiratory: Negative for cough, shortness of breath and wheezing. Cardiovascular: Negative for chest pain, palpitations and leg swelling. Gastrointestinal: Negative for abdominal pain. Neurological: Positive for weakness and headaches. Objective Vitals: 01/10/25 1146 BP: 139/89 BP Location: Left arm Patient Position: Sitting BP Cuff Size: Large adult Pulse: 82 Resp: 15 Temp: 97.5 ??F (36.4 ??C) TempSrc: Oral SpO2: 99% Weight: 237 lb (108 kg) Height: 5' 3 (1.6 m) Physical Exam Constitutional: Appearance: Normal appearance. Cardiovascular: Rate and Rhythm: Normal rate and regular rhythm. Heart sounds: No murmur heard. No gallop. Pulmonary: Effort: Pulmonary effort is normal. No respiratory distress. Breath sounds: Normal breath sounds. No wheezing. Musculoskeletal: Right lower leg: No edema. Left lower leg: No edema. Neurological: Mental Status: She is alert and oriented to person, place, and time. Cranial Nerves: No cranial nerve deficit. Comments: Patient had mild left sided weakness on exam today, I am not sure if it worse than previous visits She did not move much the left arm due to left shoulder pain [place] [id number] Magnetic Resonance Report Signed Patient: Sarita Puga MR#: [id number] 92 : 1965 Acct:[id number] Age/Sex: 58 / F ADM Date: 07/10/24 Loc: HO.MRI Attending Dr: Marcia Villaseñor MD Ordering Physician: Marcia Villaseñor MD Date of Service: 07/10/24 Procedure(s): MR head/brain wo/w con Accession Number(s): [id number] cc: Marcia Villaseñor MD; Name,Kiel BAILEY EXAMINATION: MR BRAIN WITHOUT AND WITH CONTRAST CLINICAL INFORMATION: Brain lesion. COMPARISON: Non-IV contrast MRI brain dated June 18, 2024. Correlated to CT angiogram head neck dated June 10, 2024. TECHNIQUE: Multiplanar, multisequence MRI of the brain was obtained before and after the intravenous administration of 10 mL gadolinium based (Gadavist) without reported immediate complications.. FINDINGS: There is a hyperintense T2 FLAIR, intrinsic hyperintense T1 and associated susceptibility signal abnormality extending from the right dorsal geovany/midbrain into the medial aspect of the right internal capsule with subtle restricted diffusion possibly related to the susceptibility. There is slight heterogeneous enhancement within the signal abnormality. There is no perilesional vasogenic edema, mass effect, midline shift, hydrocephalus or herniation. There is no other intra-axial or extra-axial enhancing lesion and or mass in the supratentorial or infratentorial compartment. Jang-white matter differentiation is normal. Flow-void signal within the main cerebral vessels is normal. Sellar/suprasellar region demonstrated no gross signal abnormality or enhancing lesion. Craniocervical junction demonstrates normal position of the cerebellar tonsils. MR/MR head/brain wo/w con IMPRESSION: Probable early to late subacute intra-axial hemorrhage, right midbrain/medial right internal capsule. Underlying neoplasm seems less likely. Recommend follow-up until resolution. 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 I attached the report of the most recent MRI from June. I recommended repeat MRI of the brain and further recommendation based on the results. I recommended to go to the ERfor any new sudden neurological deficits. Orders: - Mr Brain w/ and w/o Contrast; Future Cerebrovascular accident (CVA), unspecified mechanism (CMS/HCC) (HCC) - Mr Brain w/ and w/o Contrast; Future Abnormal MRI of the head - Mr Brain w/ and w/o Contrast; Future Type 2 diabetes mellitus with other specified complication, with long-term current use of insulin ([facility]) Comments: I did not recommend any medication changes. Avoid sweets and soda. Orders: - POCT Glucose Other orders - ibuprofen 600 MG tablet; Take 1 tablet (600 mg) by mouth every 8 (eight) hours if needed for mildpain for up to 20 days. Future Appointments Date Time Provider Department Center 02/04/2025 11:30 AM Opal Steiner RN MEDICINE [facility] 02/08/2025 9:30 AM Angie MayorgaD [facility] documented in this encounter Plan of Treatment Upcoming Encounters Date Type Department Care Team (Late st Contact Info) Description 02/04/2025 11:30 AM EST Clinical Support [address] [address] Opal Steiner RN 02/08/2025 9:30 AM EST Medication Management [address] [address] Puia, Katlyn, PharmD [address] [place] [phone] 03/13/2025 11:30 AM EST Telemedicine [address] [address] Name, MD Kiel [address] [place] [phone] 04/10/2025 10:45 AM EST Office Visit [address] [address] Name, MD Kiel [address] [place] [id number] Scheduled Orders Name Type Priority Associated Diagnoses Orde r Schedule Mr Brain w/ and w/o Contrast Imaging Routine Hemiparesis of left dominant side as late effect of cerebrovascular disease, unspecified cerebrovascular disease type (CMS/HCC) (HCC) Cerebrovascular accident (CVA), unspecified mechanism (CMS/HCC) (HCC) Abnormal MRI of the head Expected: 01/10/2025, Expires: 01/10/2026 documented as of this encounter Goals Goal Patient Goal Type Associated Problems Recent Progress Patient-Stated? Author Record your blood pressure once per day Blood Pressure No Puia, Katlyn, PharmD Blood Pressure < 140/90 Blood Pressure 139/89(2024 11:46 AM EST) No Puia, Katlyn, PharmD Hemoglobin [...] manage their type 2 diabetes No Katlyn Rodriguez, PharmD Patient has chronic kidney disease Care Plan Patient has chronic kidney disease No PuiaReidKatlyn, PharmD Weekly blood pressure task Care Plan Weekly blood pressure task No PuReid albertyssa, PharmD Patient has chronic kidney disease Care [...] has chronic kidney disease No Ania Spencer Weekly blood pressure task Care Plan Weekly blood pressure task No Maxine Dimas MA Weekly blood pressure task Care Plan Weekly blood pressure task No Maxine Dimas MA Patient has chronic kidney disease Care Plan Patient has chronic kidney disease No Maxine Dimas MA Patient has chronic kidney disease Care Plan Patient has chronic kidney disease No Maxine Dimas MA Weekly blood pressure task Care Plan Weekly blood pressure task No Maxine Dimas MA Weekly blood pressure task Care Plan Weekly blood pressure task No Maxine Dimas MA Patient has chronic kidney disease Care Plan Patient has chronic kidney disease No Maxine Dimas [place] Patient has chronic kidney disease Care Plan Patient has chronic kidney disease No Maxine Dimas [place] Weekly blood pressure task Care Plan Weekly blood pressure task No Renetta Power, MARINA Weekly blood pressure task Care Plan Weekly blood pressure task No Renetta Power RN Patient has chronic kidney disease Care Plan Patient has chronic kidney disease No Renetta Power RN Patient has chronic kidney disease Care Plan Patient has chronic kidney disease No Renetta Power RN Weekly blood pressure task Care Plan Weekly blood pressure task No Renetta Power RN Weekly blood pressure task Care Plan Weekly blood pressure task No Renetta Power RN Patient has chronic kidney disease Care Plan Patient has chronic kidney disease No Renetta Power RN Patient has chronic kidney disease Care Plan Patient has chronic kidney disease No Renetta Power RN documented as of this encounter Procedures Procedure Name Priority Date/Time Associated Diagnosis Comments POCT GLUCOSE Routine 01/10/2025 11:48 AM EST Type 2 diabetes mellitus with other specified complication, with long-term current use of insulin ([facility]) documented in this encounter Results * (ABNORMAL) POCT Glucose (01/10/2025 11:48 AM EST) [facility] Glucose Blood, POC 270(A) 60 - 200 mg/dL Comment:[employer] Lot # [id number] Lot# Expiration Date [id number] Blood Capillary blood specimen / Unknown 01/10/2025 11:48 AM EST us Kiel Name POINT OF CARE TEST ENTER/EDIT OR DERABLES Final Result documented in this encounter Visit Diagnoses Diagnosis Hemiparesis of left dominant side as late effect of cerebrovascular disease, unspecified cerebrovascular disease type (CMS/HCC) (HCC)- Primary Cerebrovascular accident (CVA), unspecified mechanism (CMS/HCC) (HCC) Abnormal MRI of the head Nonspecific (abnormal) findings on radiological and other examination of skull and head Type 2 diabetes mellitus with other specified complication, with long-term current use of insulin (HCC) documented in this encounter Additional Health [...] kidney disease 01/09/2025 Weekly blood pressure task 01/10/2025 Weekly blood pressure task 01/10/2025 Patient has chronic kidney disease 01/10/2025 Patient has chronic kidney disease 01/10/2025 Assessment Noted Time PHQ-9 Depression Total Score: 7 09/05/19 11:46 AM EDT documented as of this encounter Care Teams Butcher Supervisor Relationship Specialty Start Date End Date Name, MD Kiel [address] [place] [address] PCP - General Family Medicine 07/15/15 Katlyn Rodriguez PharmD [address] [place] [address] Pharmacist Internal Medicine 10/08/22 Ania Spencer 01/09/25 Marta Ovalle Stripping Cutter And WinderActivities Leader 05/25/23 documented as of this encounter
--- NOTE | 2025-01-14 15:01 | A.OFFVIS_ITS ---
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 She came to emergency room at [facility] in May of 2024 is severe headache and her brain MRI revealed a right cerebellar peduncle area lesion suggestive of either a mass or stroke. She was initially treated with steroids. MRI was repeated after few days which revealed some resolution of that lesion. Now she was much better but still has some left sided weakness and difficulty speaking. She was complaining of worsening left-sided weakness and sometime difficulty swallowing. [facility] Medical History (Updated 01/14/25 @ 15:09 by Marcia Villaseñor MD) COPD (chronic obstructive pulmonary disease) Diabetes mellitus Brain lesion Reactive airway disease Coronary artery disease Insulin dependent type 2 diabetes mellitus Exposure to rabies Lymphoma Restrictive lung disease secondary to obesity Nocturnal hypoxemia DRE (obstructive sleep apnea) Cough Nicotine dependence, cigarettes, uncomplicated Allergic rhinitis Morbid obesity Hyperlipidemia GERD (gastroesophageal reflux disease) Tubular adenoma Chronic idiopathic constipation IBS (irritable bowel syndrome) Back pain Depression Surgical History History of total right knee replacement (TKR) History of appendectomy (~1978) History of (~1986) History of hysterectomy (~1995) History of lithotripsy (~2018) History of carpal tunnel surgery of right wrist (~2020) History of colonoscopy History of esophagogastroduodenoscopy (EGD) Family History Mother Diabetes Heart muscle disorder caused by another medical condition Father Diabetes Epilepsy Sister No problems noted. Sister No problems noted. Sister No problems noted. Sister No problems noted. Sister No problems noted. Brother No problems noted. Brother No problems noted. Brother No problems noted. Brother No problems noted. Brother No problems noted. Brother No problems noted. Daughter No problems noted. Daughter No problems noted. Son No problems noted. Son No problems noted. Son No problems noted. Social History Household Members: Other Household Members Other:: grandson Housing: Apartment Are you a primary respiratory care specialist to a significant other at home: No Do you presently have visiting nurse or other home services: No Alcohol intake: current Alcohol intake frequency: does not drink Patient Tobacco Use Status: Current everyday Tobacco user Tobacco use type: Cigarette Cigarette Packs Per Day: 2 Cigarettes Per Day: 40.0 Years Smoked: (onset 13yo, x 42yrs, max 2ppd, now 1/2ppd - 30PYH) e-Cigarette/Vaping Use: Never Used Second Hand Smoke Exposure: No Substance Use Type: Marijuana service: No Current occupational status: disabled Current occupation: rt handed Review of Systems Narrative Difficulty walking and left-sided weakness. She also complain of difficulty swallowing. No psychiatric symptoms. Physical Exam Neuro Other: Mental Status: Alert and oriented to person, place, and time. Normal attention. Normal spontaneous speech, fluency, and comprehension. Cranial Nerves: CN II: Visual knight full to confrontation, visual acuity intact. CN III, IV, : Pupils equal, round, reactive to light and accommodation. Extraocular movements are normal. CN V: Facial sensation is normal. CN VII: Facial movements symmetrical. CN VIII: Hearing intact to bedside conversation is normal. CN IX, X: Palate elevates symmetrically. CN XI: Shoulder shrug and head turn symmetrical. CN XII: Tongue midline without atrophy or fasciculations. Moderate left hemiparesis. Extrapyramidal: Full facial expressions and blinking. Speech: Normal; no dysarthria or tremor. Assessment & Plan Assessment & Plan (1) Left hemiparesis: Comment: MRI brain [place] [facility] [place] June 2024: Resolving lesion, probably resolving stroke MRI brain WWO [place] [facility] in May 2024: R cerebral peduncular enhancing lesion CT brain WO [place] [facility] in Nov 2017: WNL Code(s): G81.94 - Hemiplegia, unspecified affecting left nondominant side Category: Medical Plan Impression: Left hemiparesis from right cerebral peduncle resolving ischemic hemorrhagic infarction, which initially look like a tumor and was treated with steroids. Recommendation: 1. Continue walking and physical activity to strength and left side. She is already getting physical and occupational therapy 2. Control of vascular risk factors including baby aspirin daily Orders: Orders OT Evaluation and Treatment Today G81.90 - Hemiplegia, unspecified affecting unspecified side MR head/brain wo con Today G93.9 - Disorder of brain, unspecified Medications: New lorazepam 2 mg PO DAILY PRN 1 tab 0RF anxiety Coding Level of Care Code Est Pt Level 3 (41124) Diagnoses Left hemiparesis G81.94
--- OUTSIDE RECORDS SUMMARY | 2025-01-14 19:16 | XMS_ITS | Clinical Summary ---
Author Organization [address] [facility] Address [address] [place] [address] Phone Care Team Providers Care Gas Plumbing Inspector Name Role Phone Name, Kiel BAILEY Primary Care Provider [phone] Allergies Active Allergy Reactions Criticality Noted Date [...] Active medical supply, miscellaneous (MISCELLANEOUS MEDICAL SUPPLY [facility] ULTICARE SHORT PEN NEEDLES 31G X 8 MM USE FOUR TIMES DAILY TO INJECT insulin WITH A MEAL AND AT BEDTIME 06/23/19 16 Active blood sugar diagnostic (FreeStyle Lite Strips) test strip USE TO TEST FINGER STICK BLOOD SUGAR TWICE DAILY DIRECTED 06/23/19 16 Active medical supply, miscellaneous (MISCELLANEOUS MEDICAL SUPPLY MISC) [facility] DEVICES (COMMODE BEDSIDE) MIS 1 Device by Does not apply route as needed (voiding/bm). 12/11/19 15 Active ASPIRIN ORAL Take 1 Tab by mouth daily. 11/28/19 15 Active lancets (Sure Comfort Lancets) 30 gauge [facility] USE TO TEST FINGER STICK BLOOD SUGAR [...] Problem Noted Date Diagnosed Date COPD exacerbation ([facility] V24, [facility] V28) Abnormal nuclear stress test 11/06/2014 Rib fracture 12/24/2013 Overview (12/12/2023): Non displaced, probable froacture on the right ninth and tenth Abdominal pain 08/15/2013 Lipoma of abdominal wall 11/02/2011 Visual field defect 03/29/2011 Cocaine abuse, episodic use ([facility] V24, [facility] V28) 06/17/2010 Low back pain radiating to left leg 10/08/2009 Overview (12/12/2023): The patient follows with [facility] and is treated with injections to the LS. Asthmatic bronchitis , chronic ([facility] V24, [facility] V28) 07/07/2009 Overview (12/12/2023): Severe and worse in the spring. Last hospitalazion in May and 3 ER visits Hospital 08/02 Known medical problems 06/05/2009 Tobacco use disorder 06/05/2009 Hypertriglyceridemia 06/05/2009 Morbid obesity ([facility] [place]24, [facility] V28) 2009 Overview (12/12/2023): BMI [...] TOTAL HYSTERECTOMY WITH BSO; COMMENT: for bleeding, [facility] Medical History Medical History Date Comments Type II or unspecified type diabetes mellitus with unspecified complication, not stated as uncontrolled DX:Type II or unspecified t ype diabetes mellitus with unspecified complication, not stated as uncontrolled Unspecified essential hypertension DX:Unspecified essential hypertension Tobacco abuse DX:Tobacco abuse RAD (reactive airway disease) DX :RAD (reactive airway disease) Morbid obesity ([facility] V24, [facility] V28) DX:Morbid obesity ([facility]) Asthmatic bronchitis , chron ic ([facility] V24, [facility] V28) 07/07/2009 DX:Asthmatic bronchitis , ch ronic ([facility]) Hypertriglyceridemia 06/05/2009 DX:Hypertri glyceridemia Rib fracture 12/24/2013 DX:Rib fracture Family History Medical History Relation Name Comments Blindness Brother 1 Breast cancer Maternal Grandmother Cataracts Maternal Grandmother Blindness Mother Glaucoma Neg Hx Macular degeneration Neg Hx Strabismus Neg Hx Relation Name Status Comments Brother 1 Brother 2 [place] Brother 3 Alive 6 brothers are diabetic [...] Upcoming Encounters Date Type Department Care Team ([facility] st Contact Info) Description 01/31/2025 9:00 AM EST Office Visit Orthopedic Surgery - [place] [address] [address] Wesley Garcia, MOE [address] [phone] Health Maintenance Due Date Last Done Comments [...] mmol/L LAB CHEMISTRY METHOD 02/06/2024 3:36 AM [facility] Potassium 4.1 3.5 - 5.5 mmol/L LAB CHEMISTRY METHOD 02/06/2024 3:36 AM [facility] Chloride 104 96 - 110 mmol/L LAB CHEMISTRY METHOD 02/06/2024 3:36 AM [facility] CO2 23 21 - 32 mmol/L LAB CHEMISTRY METHOD 02/06/2024 3:36 AM [facility] Anion Gap 9 3 - 11 LAB CHEMISTRY METHOD 02/06/2024 3:36 AM [facility] Glucose 244(H) 70 - 100 mg/dL LAB CHEMISTRY METHOD 02/06/2024 3:36 AM [facility] BUN 17 5 - 25 mg/dL LAB CHEMISTRY METHOD 02/06/2024 3:36 AM [facility] Creatinine 0.71 0.50 - 1.10 mg/dL LAB CHEMISTRY METHOD 02/06/2024 3:36 AM [facility] eGFR 99 >=60 mL/min/1. 73m2 [...] AM EST 02/06/2024 3:13 AM EST Result [facility] Cindy SEGURA LAB BLOOD ORDERABLES Final R esult [facility] [address] [place] [address], * (ABNORMAL) Hemoglobin A1c (11/20/2014) Pathologist [facility] Hemoglobin A1C 7.5(A) 4.0 - 6.0 % Blood Venous blood specimen / Unknown Result [facility] Historical Provider LAB BLOOD ORDERABLES Alis l Result * Urine Albumin Creatinine Ratio (05/10/2014) Pathologist [facility] Urine Albumin Creatinine Ratio abstracted Result [facility] Historical Provider HEALTH MAINTENANCE Final Result * (ABNORMAL) Lipid panel (05/10/2014) [facility] LDL/HDL Ratio 4 0 - 4 Triglycerides 360(A) 0 - 150 mg/dL Cholesterol 179 0 - 200 mg/dL HDL 42 >=40 mg/dL LDL Cholesterol 65 0 - 100 mg/dL Blood Venous blood specimen / Unknown Result [facility] Historical Provider LAB BLOOD ORDERABLES Alis l Result * Hepatitis C Screening (10/10/2013) Pathologist [facility] Hepatitis C Screening abstracted us Historical Provider HEALTH MAINTENANCE Final Result from Last 3 Months or Most Recently Relevant to Health Maintenance Insurance [place] Advance Directives * Full Code - Default [...] currently active code status orders. Care Teams Gas Plumbing Inspector Relationship Specialty Start Date End Date Name, MD Kiel [address] [place], [place] PCP - General Internal Medicine 08/28/15
--- OUTSIDE RECORDS SUMMARY | 2025-01-14 19:16 | XMS_ITS | Encounter Summary ---
Author Organization [employer] Address [address] [place] [address] 7t [place] [address] Care Team Providers Care Usability Strategist Name Role Phone Name, Kiel BAILEY Primary Care Provider [phone] Katlyn Rodriguez PharmD Unavailable [phone] Nehal Ann RN Unavailable Unavailable Ania Spencer Unavailable Opal Carrasquillo Unavailable Ania Spencer Unavailable Ania Spencer Unavailable Encounter Details Date Type Department Care Team (Late st Contact Info) Description 08/26/2022 Orders Only [facility] MEDICINE [address] [place] [address] Leia Gonzales LPN Social History Tobacco Use [...] Description 02/04/2025 11:30 AM EST Clinical Support [address] [phone] Opal Steiner RN 02/08/2025 9:30 AM EST Medication Management [address] [phone] Katlyn Rodriguez PharmD [address] [place] [address] 03/13/2025 11:30 AM EST Telemedicine [address] [phone] iKel Shaffer MD [address] [place] [address] 04/10/2025 10:45 AM EST Office Visit [address] [place], [place] [phone] Name, MD Kiel [address] [place] [address] documented as of this encounter Visit Diagnoses Not on filedocumented in this encounter Additional Health Concerns Assessment Noted Time PHQ-9 Depression Total Score: 7 07/15/19 23 2:39 PM EDT documented as of this encounter Care Teams Usability Strategist Relationship Specialty Start Date End Date NameKiel MD [address] [place] [address] PCP - General Family Medicine 07/15/15 Katlyn Rodriguez PharmD [address] [place] [phone] Pharmacist Internal Medicine 10/08/22 Nehal Ann, MARINA [address] [place] [address] Registered Nurse Family Medicine 08/20/24 10/29/24 Ania Spencer 08/20/24 11/26/24 Opal Carrasquillo Registered Nurse 10/29/24 11/26/24 Ania Spencer 12/14/24 12/26/24 Ania Spencer 01/09/25 Marta vOalle Home Health Aide CaregiverHome Demonstration Agent 05/25/23 documented as of this encounter
--- OUTSIDE RECORDS SUMMARY | 2025-01-14 19:16 | XMS_ITS ---
Author Organization [employer] Address [address] [place] [address] 7t [place] [address] Care Team Providers Care Computer Systems Technician Name Role Phone Name, Kiel BAILEY Primary Care Provider [phone] Katlyn Rodriguez PharmD Unavailable Ania Spencer Unavailable [facility] Complex Status:Outreach In Progress (Enrolling) Start date:01/09/2025 Enrollment reason:ADT Feed Overview CP Assigned Patient. ED- Pt went to [facility] ED on 01/08/25. Case Team Name Relationship Phone Ania Spencer(Responsible Staff) [phone] Continued Care and Services Coordination
--- OUTSIDE RECORDS SUMMARY | 2025-01-14 19:16 | XMS_ITS | Encounter Summary ---
Author Organization [employer] Address [address] [facility] 7t [place] [address] Care Team Providers Care Machine I Coremaker Name Role Phone Name, Kiel BAILEY Primary Care Provider [phone] Katlyn Rodriguez PharmD Unavailable Nehal Ann RN Unavailable Unavailable Ania Spencer Unavailable Opal Carrasquillo Unavailable Ania Spencer Unavailable Ania Spencer Unavailable Encounter Details Date Type Department Care Team (Late st Contact Info) Description 02/20/2024 Telephone [facility]S [address] [place] [address] Name, MD Kiel [address] [place] [address] Social History Tobacco Use Types Packs/Day Years [...] Description 02/04/2025 11:30 AM EST Clinical Support [address] [address] Opal Steiner, RN 02/08/2025 9:30 AM EST Medication Management [address] [address] Katlyn Rodriguez, PharmD [address] [place] [address] 03/13/2025 11:30 AM EST Telemedicine [address] [address] Kiel Shaffer MD [address] [place] [address] 04/10/2025 10:45 AM EST Office Visit [address] [address] Kiel Shaffer MD [address] [place] [address] documented as of this encounter Goals Goal Patient Goal Type Associated Problems Recent Progress Patient-Stated? Author Record your blood pressure once per day Blood Pressure No Puia, Katlyn, PharmD Blood Pressure < 140/90 Blood Pressure 139/89(2024 11:46 AM EST) No Puia, Katlyn, PharmD Hemoglobin A1c < 7 Result Component 7.8( 1:16 PM EST) No Puia, Aktlyn, PharmD Record your blood sugar as directed Result Component No Puia, Katlyn, PharmD documented as of this encounter Visit Diagnoses Not on filedocumented in this encounter Additional Health Concerns Assessment Noted Time PHQ-9 Depression Total Score: 4 09/02/19 10:30 AM EDT documented as of this encounter Care Teams Machine I Coremaker Relationship Specialty Start Date End Date Name, MD Kiel [address] [place] [address] PCP - General Family Medicine 07/15/15 Puia, Katlyn, PharmD [address] [place] [address] Pharmacist Internal Medicine 10/08/22 Nehal Ann RN [address] [place] [address] Registered Nurse Family Medicine 08/20/24 10/29/24 Ania Spencer 08/20/24 11/26/24 Opal Carrasquillo Registered Nurse 10/29/24 11/26/24 Ania Spencer 12/14/24 12/26/24 Ania Spencer 01/09/25 Marta Ovalle Environmental EngineerWebsphere Consultant 05/25/23 documented as of this encounter
--- OUTSIDE RECORDS SUMMARY | 2025-01-14 19:16 | XMS_ITS | Encounter Summary ---
Author Organization [employer] Address [address] [place] [address] 7t [place] [address] Care Team Providers Care Cost Control Supervisor Name Role Phone Name, Kiel BAILEY Primary Care Provider [phone] Katlyn Rodriguez PharmD Unavailable Nehal Ann RN Unavailable Unavailable Ania Spencer Unavailable Opal Carrasquillo Unavailable Ania Spencer Unavailable Ania Spencer Unavailable Encounter Details Date Type Department Care Team (Late st Contact Info) Description 05/01/2024 Telephone [facility] MEDICINE [address] [place], [place] [phone] Name, MD Kiel [address] [place], [place] [phone] Social History Tobacco Use Types Packs/Day Years [...] the past 12 months, has t he [email or web address], gas, oil or water company threatened to [...] Description 02/04/2025 11:30 AM EST Clinical Support [address] [address] Opal Steiner, RN 02/08/2025 9:30 AM EST Medication Management [address] [address] Katlyn Rodriguez, PharmD [address] [place] [address] 03/13/2025 11:30 AM EST Telemedicine [facility] [address] [place] [address] Name, [place] [address] 04/10/2025 10:45 AM EST Office Visit [facility] [address] [place] [address] Name, [place] [address] documented as of this encounter Goals Goal [...] of this encounter Care Teams Cost Control Supervisor Relationship Specialty Start Date End Date NameKiel MD [address] [place] [address] PCP - General Family Medicine 07/15/15 Puia, Katlyn, PharmD [address] [place] [address] Pharmacist Internal Medicine 10/08/22 Nehal Ann, MARINA [address] [place] [address] Registered Nurse Family Medicine 08/20/24 10/29/24 Ania Spencer 08/20/24 11/26/24 Opal Carrasquillo Registered Nurse 10/29/24 11/26/24 Ania Spencer 12/14/24 12/26/24 Ania Spencer 01/09/25 Marta Ovalle Business Services RepresentativeFinish Mender 05/25/23 documented as of this encounter
--- OUTSIDE RECORDS SUMMARY | 2025-01-14 19:17 | XMS_ITS | Encounter Summary ---
Author Organization [employer] Address [address] [facility] 7t [place] [address] Care Team Providers Care Site Promotion Agent Name Role Phone Name, Kiel BAILEY Primary Care Provider [phone] Katlyn Rodriguez PharmD Unavailable Nehal Ann RN Unavailable Unavailable Ania Spencer Unavailable Opal Carrasquillo Unavailable Ania Spencer Unavailable Ania Spencer Unavailable Reason for Visit * Reason Onset Date Comments Durable Medical Equipment 12/06/2022 Encounter Details Date Type Department Care Team (Late st Contact Info) Description 12/06/2022 Telephone [facility] MEDICINE [address] [place], [place] [phone] Name, MD Kiel [address] [place] [address] Durable Medical Equipment Social History Tobacco Use [...] to message above. Please contact pt at [phone] (Faroese) * Telephone Encounter - Jean-Paul Finch - 12/06/2022 3:29 PM EDT Tc from pt requesting status on some bed absorbant pads to not stain bed. Please contact pt at [phone] Faroese Speaker documented in this encounter Plan of Treatment Upcoming Encounters Date Type Department Care Team (Late st Contact Info) Description 02/04/2025 11:30 AM EST Clinical Support [address] [address] Opal Steiner RN 02/08/2025 9:30 AM EST Medication Management [address] [phone] Puia, Katlyn, PharmD [address] [place] [address] 03/13/2025 11:30 AM EST Telemedicine [address] [phone] Name, MD Kiel [address] [place] [address] 04/10/2025 10:45 AM EST Office Visit [address] [phone] Name, MD Kiel [address] [place] [address] documented as of this encounter Goals Goal [...] as of this encounter Care Teams Site Promotion Agent Relationship Specialty Start Date End Date Name, MD Kiel [address] [place] [address] PCP - General Family Medicine 07/15/15 Puia, Katlyn, PharmD [address] [place] [address] Pharmacist Internal Medicine 10/08/22 Nehal Ann, MARINA [address] [place] [phone] Registered Nurse Family Medicine 08/20/24 10/29/24 Ania Spencer 08/20/24 11/26/24 Opal Carrasquillo Registered Nurse 10/29/24 11/26/24 Ania Spencer 12/14/24 12/26/24 Ania Spencer 01/09/25 Marta Ovalle Clinical Documentation ClerkAccount Officer 05/25/23 documented as of this encounter
--- OUTSIDE RECORDS SUMMARY | 2025-01-14 19:17 | XMS_ITS | Encounter Summary ---
Author Organization [employer] Address [address] [place] [address] 7t [place] [address] Care Team Providers Care Research Nutritionist Name Role Phone Name, Kiel BAILEY Primary Care Provider [phone] Katlyn Rodriguez PharmD Unavailable [phone] Nehal Ann RN Unavailable Unavailable Ania Spencer Unavailable Opal Carrasquillo Unavailable Ania Spencer Unavailable Ania Spencer Unavailable Reason for Visit * Reason Onset Date Comments Reschedule 08/01/2023 Encounter Details Date Type Department Care Team (Late st Contact Info) Description 08/01/2023 Telephone [facility] MEDICINE [address] [place], [place] [phone] Name, MD Kiel [address] [place] [address] Reschedule Social History Tobacco Use Types Packs/Day [...] the past 12 months, has t he [employer], gas, oil or water company threatened to [...] 08/01/2023 9:55 AM EDT Triage call with [employer] [place] [id number] . Pt reports Covid + test this [...] 08/01/2023 9:04 AM EDT Patient cancelled todays LATHE SCALPER OPERATOR RV appt today. Pt's LATHE SCALPER OPERATOR appt has been rescheduled for chronic [...] AM EDT Tc from pt requesting r/s LATHE SCALPER OPERATOR appt, stated is sick and suspect is COVID documented in this encounter Plan of Treatment Upcoming Encounters Date Type Department Care Team (Late st Contact Info) Description 02/04/2025 11:30 AM EST Clinical Support [address] [address] Opal Steiner RN 02/08/2025 9:30 AM EST Medication Management [address] [address] Puia, Katlyn, PharmD [address] [place] [address] 03/13/2025 11:30 AM EST Telemedicine [address] [phone] Name, MD Kiel [address] [place] [address] 04/10/2025 10:45 AM EST Office Visit [address] [phone] Name, MD Kiel [address] [place] [address] documented as of this encounter Goals Goal [...] as of this encounter Care Teams Research Nutritionist Relationship Specialty Start Date End Date Name, MD Kiel [address] [place] [address] PCP - General Family Medicine 07/15/15 Puia, Katlyn, PharmD [address] [place] [address] Pharmacist Internal Medicine 10/08/22 Nehal Ann RN [address] [place] [address] Registered Nurse Family Medicine 08/20/24 10/29/24 Ania Spencer 08/20/24 11/26/24 Opal Carrasquillo Registered Nurse 10/29/24 11/26/24 Ania Spencer 12/14/24 12/26/24 Ania Spencer 01/09/25 Marta Ovalle Stock TracerMastic Floor Layer 05/25/23 documented as of this encounter
--- OUTSIDE RECORDS SUMMARY | 2025-01-14 19:17 | XMS_ITS | Clinical Summary ---
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 2 mL 5 10:56 AM EST 06/08/19 25 Active ezetimibe (Zetia) 10 MG tabletIndicatio ns:Type 2 diabetes mellitus with other specified complication, with long-term current use of insulin (HCC) TAKE 1 TABLET BY MOUTH EVERY MORNING 30 tablet 11 07/24/19 25 Active cetirizine (ZyrTEC) 10 MG tablet TAKE 1 TABLET BY MOUTH EVERY MORNING 90 tablet 1 07/25/19 25 Active gabapentin (Neurontin) 800 MG tablet Take 1 tablet (800 mg) by mouth 3 times daily. 90 tablet 11 08/21/19 25 026 Active aspirin 81 MG chewable tabletIndicatio ns:Type 2 diabetes mellitus with other specified complication, with long-term current use of insulin ([facility]) Chew 1 tablet (81 mg) in the evening. 90 tablet 3 08/23/19 25 Active metFORMIN XR (Glucophage-XR) 500 MG 24 hr tabletIndicatio ns:Type 2 diabetes mellitus with obesity Take 1 tablet (500 mg) by mouth at bedtime. 90 tablet 3 08/23/19 25 Active losartan (Cozaar) 50 MG tabletIndicatio ns:Essential hypertension TAKE 1 TABLET BY MOUTH EVERY MORNING 90 tablet 3 09/13/19 25 Active TechLite Pen [place] 32G X 4 MM miscIndications :Type 2 diabetes mellitus with other specified complication ([facility]) USE DIRECTED FOUR TIMES DAILY 100 each 11 5 10:56 AM EST 09/29/19 25 Active Blood Glucose Monitoring Suppl (FreeStyle Lite) deviceIndicatio ns:Type 2 diabetes mellitus with other specified complication, with long-term current use of insulin ([facility]) Inject 1 each under the skin 2 times daily. Use to test blood sugar as directed 1 each 10/03/19 25 Active glucose blood (FREESTYLE LITE) test stripIndication s:Type 2 diabetes mellitus with other specified complication, with long-term current use of insulin ([facility]) Use to test blood sugar 2 times daily 50 strip 11 10/03/19 25 Active TRUEplus Lancets 33G miscIndications :Type 2 diabetes mellitus with other specified complication, with long-term current use of insulin ([facility]) Use to test blood sugar twice daily as directed 100 each 11 10/03/19 25 Active traZODone (Desyrel) 100 MG [...] reversal. 2 each 2 11/16/19 25 Active famotidine (Pepcid) 20 MG tablet [...] complication, with long-term current use of insulin ([facility]),Hypertrig lyceridemia TAKE 2 CAPSULES BY MOUTH TWICE DAILY IN THE MORNING AND EVENING WITH MEALS 360 capsule 3 01/09/20 25 Active oxyCODONE (Roxicodone) 10 MG immediate release tabletIndicatio ns:Cerebellar mass,Chronic intractable headache, unspecified headache type TAKE 1 TABLET BY MOUTH THREE TIMES DAILY FOR 28 DAYS 84 tablet 5 9:16 AM EST 01/12/20 25 Active Varenicline Tartrate, Starter, (Chantix Starting Month ) 0.5 MG X 11 & 1 MG X 42 tablet therapy packIndications :Tobacco use disorder Take 0.5 mg by mouth Once per day for 3 days, THEN 0.5 mg 2 times daily for 4 days, THEN 1 mg 2 times daily. 53 each 5 10:56 AM EST 01/10/20 25 026 Active insulin glargine (Lantus SoloStar) 100 UNIT/ML penIndications: Type 2 diabetes mellitus with other specified complication, with long-term current use of insulin ([facility]) Inject 50 Units under the skin at bedtime. 15 mL 1 01/10/20 25 Active rosuvastatin (Crestor) 40 MG tabletIndicatio ns:Type 2 diabetes mellitus with other specified complication, with long-term current use of insulin (HCC),Tobacco use disorder,Histor y of stroke,Hypertri glyceridemia Take 1 tablet (40 mg) by mouth Once per day. 90 tablet 1 01/10/20 Active ibuprofen 600 MG tablet Take 1 tablet (600 mg) by mouth every 8 (eight) hours if needed for mild pain for up to 20 days. 60 tablet 5 1:00 PM EST 01/11/20 25 Active acetaminophen (Tylenol 8 Hour) 650 [...] 360 capsule 3 02/02/20 24 025 Discontinued rosuvastatin (Crestor) 40 MG tabletIndicatio ns:Type 2 diabetes mellitus with other specified complication, with long-term current use of insulin ([facility]),History of stroke,Tobacco use disorder,Hypert riglyceridemia Take 1 tablet (40 mg) by mouth Once per day. 90 tablet 1 08/17/19 25 025 Discontinued(R eorder (will not trigger notification to Pharmacy)) meloxicam (Mobic) 7.5 MG tablet TAKE 1 TABLET BY MOUTH ONCE DAILY 30 tablet 09/13/19 25 025 Discontinued(T herapy completed) lidocaine (Lidoderm) 5 % patchIndication s:Nondisplaced fracture of right radial styloid process, initial encounter for closed fracture Apply 1 patch topically Once per day. Remove & discard patch within 12 hours or as directed by MD. 30 patch 1 10/10/19 25 025 Discontinued insulin glargine (Lantus SoloStar) 100 UNIT/ML penIndications: Type 2 diabetes mellitus with other specified complication, with long-term current use of insulin ([facility]) Inject 46 Units under the skin at bedtime. 11/28/19 025 Discontinued(R eorder (will not trigger notification to Pharmacy)) oxyCODONE (Roxicodone) 10 MG immediate release tabletIndicatio ns:Cerebellar mass,Chronic intractable headache, unspecified headache type Take 1 tablet (10 mg) by mouth 3 times daily for 28 days. Do not start before December 14, 2024. 84 tablet 12/15/19 025 Discontinued Active Problems Problem Noted Date [...] as late effect of cerebrovascular accident ([facility]) 11/01/2024 Assessment & Plan (11/01/2024 [...] to the hospital Case was presented to [facility] emergency room Hemiparesis of left dominant side ([facility]) 07/23 Assessment & Plan (08/17/2024 1:36 PM EDT): Patient will benefit from PT evaluation and after evaluation at the hospital to be referred to acute PT center Cerebrovascular accident (CVA) ([facility]) 025 History of stroke 07/30/2024 Cerebellar mass 06/28/2024 Chronic, continuous use of opioids 11/29/2023 Overview (11/29/2023): Dx: OA knee 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 Last hospitalazion in May and 3 ER visits Hospital 08/02 Acute exacerbation of chroni c obstructive airways disease with asthma (CMS/HCC) 01/02/2018 Seizure ([facility]) 11/18/2017 06/28/2024 Anterior knee pain [...] Encounters Date Type Department Care Team Description 01/10/2025 11:30 AM EST Office Visit [facility] [address] [place] [phone] Name, MD Kiel Hemiparesis of left dominant side as late effect of cerebrovascular disease, unspecified cerebrovascular disease type (CMS/HCC) (HCC) (Primary Dx); Cerebrovascular accident (CVA), unspecified mechanism (CMS/HCC) (HCC); Abnormal MRI of the head; Type 2 diabetes mellitus with other specified complication, with long-term current use of insulin (HCC) 01/10/2025 Travel 01/10/2025 Patient Outreach [facility] [address] [place] [phone] Renetta Power RN 01/09/2025 Telephone [facility] [address] [place] [phone] Renetta Power RN 01/09/2025 Telephone [facility] [address] [place] [phone] Kiel Shaffer MD Chart Prep 01/09/2025 Patient Outreach [facility] [address] [place] [address] Kiel Shaffer MD Care Coordination ([facility] ED Follow Up) 01/09/2025 Travel 01/09/2025 Patient Outreach [facility] [address] [place] [phone] Kiel Shaffer MD 01/08/2025 Orders Only GENERIC EXTERNAL DATA DEPARTMENT Provider, Generic External Data 01/08/2025 Refill [facility] [address] [place] [phone] Anisha Gonzalez NP Cerebellar mass; Chronic intractable headache, unspecified headache type 01/06/2025 Refill [facility] [address] [place] [address] Katlyn Rodriguez PharmD Type 2 diabetes mellitus with other specified complication, with long-term current use of insulin (HCC); Hypertriglyceridemia 12/30/2024 Refill [facility] [address] [place] [address] Sarita Baker MD Nondisplaced fracture of right radial styloid process, initial encounter for closed fracture 12/26/2024 Patient Outreach [facility] [address] [place] [address] Kiel Shaffer MD Care Coordination (Communication to pt assigned CP Coordinator) 12/26/2024 Refill [facility] [address] [place] [address] Kiel Shaffer MD 12/25/2024 Orders Only GENERIC EXTERNAL DATA DEPARTMENT Provider, Generic External Data 12/25/[address] [address] Kiel Shaffer MD FYI 12/24/2024 10:40 AM EST [facility] [address] [address] Victorino Graves MD Acute pain of left shoulder (Primary Dx); Injury of left shoulder, subsequent encounter; Left-sided weakness 12/24/[address] [address] Kiel Shaffer MD Results (Pt requesting wheelchair , pt stated she's falling too much. ) 12/24/2024 Travel 12/14/[address] [address] Elsie Hall RN ER Follow-up 12/14/2024 Patient Outreach [facility] [address] [place] [address] Kiel Shaffer MD Care Coordination (CP Care Coordination Chart Review) 12/14/2024 Patient Outreach [facility] [address] [place] [phone] Kiel Shaffer MD Care Coordination (Critical access hospital ED Follow up) 12/14/2024 Patient Outreach [address] [address] Kiel Shaffer MD 12/13/2024 10:40 AM EDT [facility] [address] [address] Lorenzo Chavez MD Acute pain of left shoulder (Primary Dx); Acute pain of right knee; Nondisplaced fracture of right radial styloid process, subsequent encounter for closed fracture with delayed healing 12/13/2024 Travel 12/13/2024 Refill [facility] [address] [place] [phone] Kiel Shaffer MD Cerebellar mass; Chronic intractable headache, unspecified headache type 12/10/2024 Refill [facility] [address] [place] [phone] Kiel Shaffer MD 12/07/[address] [address] Kiel Shaffer MD Cerebellar mass; Chronic intractable headache, unspecified headache type 11/30/2024 Orders Only [address] [address] Kiel Shaffer MD 11/27/2024 Travel 11/26/2024 Travel 11/26/2024 Patient Outreach [address] [address] Kiel Shaffer MD Care Management ([facility] TC #3-case closed) 11/15/2024 11:30 AM EDT Clinical Support [address] [address] Opal Steiner RN Long-term current use of opiate analgesic (Primary Dx) 11/15/[address] [address] Opal Steiner RN Cerebellar mass; Chronic intractable headache, unspecified headache type; Long-term current use of opiate analgesic 11/15/2024 Travel 11/12/[address] [address] Barbara Martinez [place] 11/12/[address] [address] Barbara Martinez [place] DECEMBER RECALLS 11/08/2024 Results Follow-Up [facility] [address] [address] Lorenzo Chavez MD XR Hand 3+ Views Left 11/08/2024 Travel 11/06/2024 5:00 PM EDT [facility] [address] [address] Lorenzo Chavez MD Swelling of left hand (Primary Dx) 11/06/2024 Travel 11/02/2024 Results Follow-Up [address] [address] Sarita Baker MD XR Shoulder 2+ Views Left 11/01/2024 1:00 PM EDT Office Visit [address] [address] Sarita Baker MD Acute bilateral low back pain without sciatica; Acute pain of left shoulder; Bilateral hand pain; Hemiparesis affecting left side as late effect of cerebrovascular accident ([facility]) 11/01/2024 Travel 11/01/2024 Telephone [facility] [address] [place] [address] Kiel Shaffer MD Nurse Triage 10/29/[address] [address] Katlyn Rodriguez, PharmD 10/29/2024 Travel 10/18/2024 Refill [facility] [address] [place] [phone] Kiel Shaffer MD Psychophysiological insomnia 10/18/[address] [address] Lizzie Alfaro NP Cerebellar mass; Chronic intractable headache, unspecified headache type 10/17/2024 Patient Outreach [facility] [address], [place] [phone] Kiel Shaffer MD Care Coordination (C3[facility] f/u call- LVM) 10/16/2024 Patient Outreach [facility] [address], [place] [phone] Kiel Shaffer MD from Last 3 Months Immunizations Immunization Administration Dates Next Due HepB-CpG 11/05/2022,10/08/2022 Influenza Injectable Quadriv alant Preservative Free IIV4 MDCK 11/05/2022 Influenza Whole 11/06/2010 Influenza injectable quadriv alent IIV4 with preservative 01/09/2016 Influenza injectable quadriv alent preservative free 11/13/2021,01/21/2021,01/07/2020,12/13,01/30/2018 Influenza, IIV3, injectable 02/03/2016,1 ,12/16/2013,02/23,11/02/2012,10/26/2011,01/13/2011 ,11/03/2010,11/21/2009 Influenza, seasonal, injecta ble, preservative free 11/27/2024,11/29/2023 Novel [id number], all formulations 05/31/2009 Pneumococcal Conjugate PCV 20 [...] Mass Index 41.98 01/10/2025 11:46 AM EST Plan of Treatment Upcoming Encounters Date Type Department Care Team (Late st Contact Info) Description 02/04/2025 11:30 AM EST Clinical Support [address] [address] Opal Steiner, [place] 02/08/2025 9:30 AM EST Medication Management [address] [address] Katlyn Rodriguez, PharmD [address] [place] [phone] 03/13/2025 11:30 AM EST Telemedicine [address] [address] Name, MD Kiel [address] [place] [phone] 04/10/2025 10:45 AM EST Office Visit [address] [address] Name, MD Kiel [address] [place] [address] Health Maintenance Due Date Last Done Comments CT Colonography 1965 FIT DNA/Cologuard 1965 FIT 1965 FOBT 1965 HIV Screening 1965 Sigmoidoscopy 1965 Hepatitis C Screening 08/22/1983 Pap Smear 1986 HPV/Cotest 08/22/1995 RSV Patients and Patients Aged 60 years or older (1 - Risk 50-74 years 1-dose series) 08/22/2015 Diabetes: Urine Protein Screening 05/25/2024 05/26/2023, 05/26/2023, 08/30/2022, Additional history exists Diabetes: Foot Exam 10/19/2024 10/20/2023, 10/20/2023, 10/20/2023, [...] Screening 11/26/2025 11/26/2024 Lipid Panel 11/30/2025 11/30/2024, 0409/2024, 10/25/2023, Additional history exists Tobacco Screening 01/10/2026 01/10/2025 Colonoscopy 07/02/2027 07/01/2022, 05/11/2021 Colorectal Cancer Screening 07/02/2027 DTaP/Tdap/Td Vaccines (6 [...] chronic kidney disease No Renetta Power RN Procedures Procedure Name Priority Date/Time Associated Diagnosis Comments POCT GLUCOSE Routine 01/10/2025 11:48 AM EST Type 2 diabetes mellitus with other specified complication, with long-term current use of insulin (HCC) POCT GLYCATED HEMOGLOBIN, TOTAL Routine 01/09/2025 1:16 [...] with long-term current use of insulin ([facility]) Rib pain on left side HM COLONOSCOPY Routine 07/01/2022 4:37 PM EDT DIABETES EYE EXAM Routine 05/26/2022 from Last 3 Months or Most Recently Relevant to Health Maintenance Results * (ABNORMAL) POCT Glucose (01/10/2025 11:48 AM EST) Glucose Blood, POC 270(A) 60 - 200 mg/dL Comment:[employer] Lot # [id number] Lot# Expiration Date ,090,925 Blood Capillary blood specimen / Unknown 01/10/2025 11:48 AM EST Kiel Name POINT OF CARE TEST ENTER/EDIT OR DERABLES Final Result * (ABNORMAL) POCT Hgb A1c (01/09/2025 1:16 PM EST) Hemoglobin A1C 7.8(A) 4.0 - 5.7 % Blood 01/09/2025 1:16 PM EST Kiel Shaffer MD POINT OF CARE TEST ENTER/EDIT OR DERABLES Final Result * Urinalysis with Reflex to Microscopic (01/08/2025 10:51 PM EST) Color Urine Yellow [facility] Appearance Urine Clear [facility] PH 6.0 5.0 - 9.0 [facility] Glucose Urine UA Negative Negative mg/dL [facility] Urine Blood Negative Negative [facility] Specific [place] - Urine 1.020 1.005 - 1.025 [facility] Urine Protein Negative Neg-Trace mg/dL [facility] Urine Ketones Negative Negative mg/dL [facility] Nitrite Urine Negative Negative [facility] Leukocyte Esterase Urine Negative Negative [facility] 01/08/2025 10:5 1 PM EST 01/08/2025 10:54 PM EST Generic External Data Provider LAB URINE ORDERAB LES Final Result [facility] [address] [place] [phone] * High Sensitivity Troponin I (01/08/2025 8:39 PM EST) Only the most recent of2 resultswithin the time period is included. [facility] TROPONIN I HIGH SENSITIVITY <2.7 <3.5 - 17.0 ng/L [facility] Comment:The [place] high sens itivity Troponin-I results should beused in conjunction with other diagnostic information suchas ECG, clinical observations and information, and patientsymptoms to aid in the diagnosis of PR. 01/08/2025 8:39 PM EST 01/08/2025 8:41 PM EST us Generic External Data Provider LAB BLOOD ORDERAB LES Final Result Performing Organization Address City/State/[facility] Co de Phone Number [facility] [address] [place] [phone] * (ABNORMAL) CBC auto differential (01/08/2025 6:13 PM EST) Only the most recent of2 resultswithin the time period is included. [facility] White Blood Count 8.1 4.8 - 10.8 X10*3/uL [facility] Red Blood Count 5.14 4.20 - 5.50 X10*6/uL [facility] Hemoglobin 14.0 12.0 - 16.0 g/dl [facility] Hematocrit 44.0 37.0 - 47.0 % [facility] Mean Corpuscular Volume 85.6 80.0 - 98.0 fL [facility] Mean Corpuscular Hemoglobin 27.2 27.0 - 33.0 pg [facility] Mean Corpuscular HGB Conc 31.8 31.0 - 35.0 g/dl [facility] Red Cell Distribution Width 13.2 11.0 - 16.0 % [facility] Platelet Count 171 160 - 400 X10*3/uL [facility] Mean Platelet Volume 12.4(H) 9.4 - 12.3 fL [facility] Neutrophils Percent Auto 57.3 45 - 73 % [facility] Imm Gran Pct Auto 0.2 0.0 - 0.4 % [facility] Lymphocytes Percent Auto 32.6 20 - 40 % [facility] Monocytes Percent Auto 7.6 2 - 11 % [facility] Eosinophils Percent Auto 1.6 0 - 4 % [facility] Basophils Percent Auto 0.7 0 - 2 % [facility] NRBC Pct Auto 0.0 0.0 - 0.2 /100WBC [facility] Neutrophils Absolute Auto 4.6 2.0 - 8.3 x10*3/uL [facility] Imm Gran Abs Auto 0.02 0.00 - 0.03 X10*3/uL [facility] Lymphocytes Absolute Auto 2.6 1.2 - 4.9 X10*3/uL [facility] Monocytes Absolute Auto 0.6 0.1 - 1.2 X10*3/uL [facility] Eosinophils Absolute Auto 0.1 0.0 - 0.4 X10*3/uL [facility] Basophils Absolute Auto 0.1 0.0 - 0.2 X10*3/uL [facility] NRBC Abs Auto 0.000 0.0 - 0.012 X10*3/uL [facility] 01/08/2025 6:13 PM EST 01/08/2025 6:16 PM EST [facility] - 01/08/2025 6:25 PM EST 2 attempts made us Generic External Data Provider LAB BLOOD ORDERAB LES Final Result [facility] [address] [place] [phone] * Magnesium (01/08/2025 6:13 PM EST) Magnesium 2.0 1.6 - 2.6 mg/dL [facility] 01/08/2025 6:13 PM EST 01/08/2025 6:16 PM EST [facility] - 01/08/2025 6:37 PM EST 2 attempts made us Generic External Data Provider LAB BLOOD ORDERAB LES Final Result Performing Organization Address [facility]/ZIP Co de Phone Number [facility] [address] [place] [phone] * (ABNORMAL) Hepatic Function Panel (01/08/2025 6:13 PM EST) Only the most recent of2 resultswithin the time period is included. Bilirubin, Total 0.4 0.0 - 1.0 mg/dL [facility] Bilirubin, Direct 0.1 0.0 - 0.5 mg/dL [facility] Aspartate Amino Transferase 24 5 - 31 U/L [facility] Comment:Slight Hemolysis.Int erpret result with caution. Alanine Aminotransferase 44(H) 0 - 31 U/L [facility] Total Protein 6.8 6.5 - 8.0 g/dL [facility] Albumin Level 4.1 3.5 - 5.0 g/dL [facility] Alkaline Phosphatase 83 39 - 117 U/L [facility] 01/08/2025 6:13 PM EST 01/08/2025 6:16 PM EST Narrative [facility] - 01/08/2025 6:37 PM EST 2 attempts made us Generic External Data Provider LAB BLOOD ORDERAB LES Final Result Performing Organization Address City/[facility] Co de Phone Number [facility] [address] [place] [phone] * (ABNORMAL) Basic Metabolic Panel (01/08/2025 6:13 PM EST) Sodium 136 135 - 145 mmol/L [facility] Potassium 4.2 3.3 - 5.1 mmol/L [facility] Comment:Slight Hemolysis.Int erpret result with caution. Chloride 102 96 - 108 mmol/L [facility] Carbon Dioxide 23 22 - 29 mmol/L [facility] Anion Gap 15 12 - 20 [facility] Urea Nitrogen (BUN) 16 9 - 16 mg/dL [facility] Creatinine, Serum 0.46(L) 0.5 - 1.4 mg/dL [facility] Creatinine Clr Calc Pharmacy 154.4 [facility] Comment:Provided height and weight: 160.02 cm,107.048 kg.eGFR (calculated from the MDRD study equation) and eCrCl(calculated from the Cockcroft-Gault equation) are based ondifferent parameters and may not yield comparable results.If eCrCl result is absurd, please check patient'sheight/weight. Estimated Glomerular Filt Rate >60 [facility] Comment:Chronic Kidney Disea se: Estimated GFR < 60 mL/min/1.65n2Cbqekl Kidney Disease: Estimated GFR < 15 mL/min/1.73m2 Glucose 194(H) 60 - 115 mg/dL [facility] Calcium 9.5 8.4 - 10.2 mg/dL [facility] 01/08/2025 6:13 PM EST 01/08/2025 6:16 PM EST Narrative [facility] - 01/08/2025 6:37 PM EST 2 attempts made us Generic External Data Provider LAB BLOOD ORDERAB LES Final Result [facility] [address] [place] [phone] * SARS-CoV-2 RNA, Influenza A/B, and RSV RNA, Ql NAAT (01/08/2025 5:57 PM EST) Influenza A PCR NEGATIVE Negative [facility] Influenza B PCR NEGATIVE Negative [facility] Resp Syncy Virus RNA Qual PCR NEGATIVE Negative [facility] SARS COV2 PCR NEGATIVE Negative [facility] Comment:All test results mus t [...] use by authorized laboratories.Testing performed on the [employer] GeneXpert utilizingreal-time RT-PCR.All SARS CoV2 and positive influenza A/B results arereported to COMMUNITY [facility] 01/08/2025 5:57 PM EST 01/08/2025 6:16 PM EST Narrative [facility] - 01/08/2025 7:04 PM EST 2 attempts made us Generic External Data Provider LAB MICROBIOLOGY - GENERAL ORDERABLES Final Result Performing Organization Address City/State/[facility] Co de Phone Number [facility] [address] [place] [phone] * XR Chest 2 Views (01/08/2025 4:17 PM EST) Anatomical Region Laterality Modality Chest Radiographic Diana ging 01/08/2025 4:17 PM EST Narrative 01/08/2025 4:33 PM EST [address] [address] XRay Report Signed Patient: Sarita Puga MR#: [id number] 92 : 1965 Acct:[id number] Age/Sex: 59 / F ADM Date: 01/08/25 Loc: .ED Attending Dr: Ordering Physician: Aurora Beltrán Date of Service: 01/08/25 Procedure(s): XR chest 2V Accession Number(s): [id number] cc: Kiel Shaffer MD; Aurora Beltrán Reason [...] signed by Flavio Simms MD in OV> 01/08/251628 DD/ 16 TD/TT: 01/08/251619 Opener: Procedure Note Donotuseinterpreter, Image - 01/08/[address] [address] XRay Report Signed Patient: Sarita Puga MMR#: [id number] 92 : 1965Acct:[id number] Age/Sex: 59 / FADM Date: 01/08/25 Loc: .ED Attending Dr: Ordering Physician: Aurora Beltrán Date of Service: 01/08/25 Procedure(s): XR chest 2V Accession Number(s): [id number] cc: Name,Kiel BAILEY; Aurora Beltrán Reason for Exam: CP EXAMINATION: [...] No interval change. Electronically signed by: Flavio Simsm MD 01/08/2025 04:29 PM EST RP Dictated By: Flavio Simms MD Signed By: <Electronically signed by Flavio Simms MD in OV> 01/08/25 1629 DD/ 161 TD/TT: 01/08/251619 Opener: [facility] External Provider IMG XR PROCEDURES Final Result * XR Shoulder 2+ Views Left (12/25/2024 9:51 PM EST) Only the most recent of3 resultswithin the time period is included. Anatomical Region Laterality Modality Upper Extremities, Shoulder Left Radi ographic Imaging 12/25/2024 9:5 1 PM EST Narrative 12/25/2024 9:53 PM EST [address] [address] XRay Report Signed Patient: Sarita Puga MR#: [id number] 92 : 1965 Acct:[id number] Age/Sex: 59 / F ADM Date: 12/25/24 Loc: HO.ED Attending Dr: Ordering Physician: Ignacia Lorenzo Date of Service: 12/25/24 Procedure(s): XR shoulder LT min 2V Accession Number(s): [id number] cc: Ignacia Lorenzo; Name,Kiel BAILEY Reason for Exam: pain, trauma? CLINICAL HISTORY: pain, trauma? 3 view left shoulder Comparison: CR/ME/SR - XR SHOULDER 2 OR MORE VIEWS [...] in OV> 12/25/242151 DD/ 50 TD/TT: 12/25/242150 Opener: Procedure Note Sarmad, Image - 12/25/[address] [address] XRay Report Signed Patient: Sarita Puga MMR#: [id number] 92 : 1965Acct:[id number] Age/Sex: 59 / FADM Date: 12/25/24 Loc: HO.ED Attending Dr: Ordering Physician: Ignacia Lorenzo Date of Service: 12/25/24 Procedure(s): XR shoulder LT min 2V Accession Number(s): [id number] cc: Ignacia Lorenzo; Name,Kiel BAILEY Reason for Exam: pain, trauma? CLINICAL HISTORY: pain, trauma? 3 view left shoulder Comparison: CR/ME/SR - XR SHOULDER 2 OR MORE VIEWS [...] in OV> 12/25/242151 DD/ 50 TD/TT: 12/25/242150 Opener: [facility] External Provider IMG XR PROCEDURES Final Result * (ABNORMAL) Comprehensive Metabolic Panel (12/25/2024 5:51 PM EST) Sodium 138 135 - 145 mmol/L [facility] Potassium 4.0 3.3 - 5.1 mmol/L [facility] Chloride 104 96 - 108 mmol/L [facility] Carbon Dioxide 27 22 - 29 mmol/L [facility] Anion Gap 11(L) 12 - 20 [facility] Urea Nitrogen (BUN) 15 9 - 16 mg/dL [facility] Creatinine, Serum 0.49(L) 0.5 - 1.4 mg/dL [facility] Creatinine Clr Calc Pharmacy 142.7 [facility] Comment:Provided height and weight: 160.02 cm,104.326 kg.eGFR (calculated from the MDRD study equation) and eCrCl(calculated from the Cockcroft-Gault equation) are based ondifferent parameters and may not yield comparable results.If eCrCl result is absurd, please check patient'sheight/weight. Estimated Glomerular Filt Rate >60 [facility] Comment:Chronic Kidney Disea se: Estimated GFR < 60 mL/min/1.31b7Xmsutw Kidney Disease: Estimated GFR < 15 mL/min/1.73m2 Glucose 138(H) 60 - 115 mg/dL [facility] Calcium 9.3 8.4 - 10.2 mg/dL [facility] Bilirubin, Total 0.3 0.0 - 1.0 mg/dL [facility] Aspartate Amino Transferase 12 5 - 31 U/L [facility] Alanine Aminotransferase 22 0 - 31 U/L [facility] Total Protein 6.8 6.5 - 8.0 g/dL [facility] Albumin Level 4.3 3.5 - 5.0 g/dL [facility] Alkaline Phosphatase 77 39 - 117 U/L [facility] 12/25/2024 5:51 PM EST 12/25/2024 6:01 PM EST us Generic External Data Provider LAB BLOOD ORDERAB LES Final Result [facility] [address] [place] [phone] * XR Knee 3 Views Right (12/13/2024 12:39 PM EDT) Anatomical Region Laterality Modality Lower Extremities, Knee Right Radiogra phic Imaging 12/13/2024 12:3 9 PM EDT Narrative 12/13/2024 12:58 PM EDT [address] [address] XRay Report Signed Patient: Sarita Puga MR#: [id number] 92 : 1965 Acct:[id number] Age/Sex: 59 / F ADM Date: 12/13/24 Loc: HO.ED Attending Dr: Ordering Physician: Aurora Beltrán Date of Service: 12/13/24 Procedure(s): XR knee RT 3V Accession Number(s): [id number] cc: Kiel Shaffer MD; Aurora Beltrán Reason [...] 12/13/24 1255 DD/ 1239 TD/TT: 12/13/24 1246 Opener: SALINAS Procedure Note Donotuseinterpreter, Image - 12/13/2024 [place] [address] XRay Report Signed Patient: Sarita Puga MMR#: [id number] 92 : 1965Acct:[id number] Age/Sex: 59 / FADM Date: 12/13/24 Loc: HO.ED Attending Dr: Ordering Physician: Aurora Beltrán Date of Service: 12/13/24 Procedure(s): XR knee RT 3V Accession Number(s): [id number] cc: Kiel Shaffer MD; Aurora Beltrán Reason [...] 12/13/24 1255 DD/ 1239 TD/TT: 12/13/24 1246 Opener: SALINAS [facility] External Provider IMG XR PROCEDURES Edited Result - Final * XR Lumbar Spine 2-3 Views (12/13/2024 12:38 PM EDT) Only the most recent of2 resultswithin the time period is included. Anatomical Region Laterality Modality Spine, L-spine Radiographic Diana ging 12/13/2024 12:3 8 PM EDT Narrative 12/13/2024 12:56 PM EDT [place] [address] XRay Report Signed Patient: Sarita Puga MR#: [id number] 92 : 1965 Acct:[id number] Age/Sex: 59 / F ADM Date: 12/13/24 Loc: .ED Attending Dr: Ordering Physician: Lacy Saucedo MD Date of Service: 12/13/24 Procedure(s): XR lumbar spine 2-3V Accession Number(s): [id number] cc: Lacy Saucedo MD; Name,Kiel BAILEY Reason [...] 12/13/24 1253 DD/ 1238 TD/TT: 12/13/24 1246 Opener: SALINAS Procedure Note Donotuseinterpreter, Image - 12/13/[address] [address] XRay Report Signed Patient: Sarita Puga MMR#: [id number] 92 : 1965Acct:[id number] Age/Sex: 59 / FADM Date: 12/13/24 Loc: .ED Attending Dr: Ordering Physician: Lacy Saucedo MD Date of Service: 12/13/24 Procedure(s): XR lumbar spine 2-3V Accession Number(s): [id number] cc: Lacy Saucedo MD; Name,Kiel BAILEY Reason [...] 12/13/24 1253 DD/ 1238 TD/TT: 12/13/24 1246 Opener: SALINAS [facility] External Provider IMG XR PROCEDURES Edited Result - Final * MR Wrist w/o Contrast Right (12/06/2024 8:31 PM EDT) Anatomical Region Laterality Modality Upper Extremities, Wrist Right Magneti c Resonance 12/06/2024 8:31 PM EDT Narrative 12/06/2024 8:33 PM EDT [address] [address] Magnetic Resonance Report Signed Patient: Sarita Puga MR#: [id number] 92 : 1965 Acct:[id number] Age/Sex: 59 / F ADM Date: 12/06/24 Loc: HO.MRI Attending Dr: Jose SEGURA Ordering Physician: Jose Hernandez Date of Service: 12/06/24 Procedure(s): MR wrist RT wo con Accession Number(s): [id number] cc: Jose Hernandez; Name,Kiel BAILEY Reason for [...] in OV> 12/06/242032 DD/ 30 TD/TT: 12/06/242030 Opener: Procedure Note Donotuseinterpreter, Image - 12/06/2024 [place] [address] Magnetic Resonance Report Signed Patient: Sarita Puga [facility]#: [id number] 92 : 1965Acct:[id number] Age/Sex: 59 / FADM Date: 12/06/24 Loc: HO.MRI Attending Dr: Jose SEGURA Ordering Physician: Jose Hernandez Date of Service: 12/06/24 Procedure(s): MR wrist RT wo con Accession Number(s): [id number] cc: oJse Hernandez; Name,Kiel BAILEY Reason for Exam: M79.643 [...] in OV> 12/06/242032 DD/ 30 TD/TT: 12/06/242030 Opener: [facility] External Provider IMG MRI PROCEDURES Final Result * (ABNORMAL) Lipid Panel, Standard (11/30/2024 9:56 AM EDT) Triglycerides 122 <150 mg/dL [facility] Comment:Desirable Triglyceri de: less than 150 mg/dLBorderline High Triglyceride 150-199 mg/dLHigh Triglyceride: 200-499 mg/dLVery High Triglyceride: greater than or equal to 5OO mg/dL Cholesterol 151 <200 mg/dL [facility] Comment:Desirable Cholestero l: less than 200 mg/dLBorderline High Cholesterol: 200-239 mg/dLHigh Cholesterol: greater than 239 mg/dL LDL Cholesterol Calculated 91 <100 mg/dL [facility] Comment:Desirable LDL: less than 100 mg/dLNear Optimal/Above Optimal LDL: 110- 129 mg/dLBorderline High LDL: 130-159 mg/dLHigh LDL: 160-189 mg/dLVery High LDL: greater than or equal to 190 mg/dL HDL Cholesterol 36(L) >40 mg/dL [facility] Comment:Desirable HDL: great er than 40 mg/dL Note: This HDL assay may give artificially low results in patients with liver disease. 11/30/2024 9:5 6 AM EDT 11/30/2024 11:32 AM EDT us Kiel Name LAB BLOOD ORDERABLES Final Resul t [facility] [address] [place] [phone] * POCT KEELEY-14 Urine Drug Screen [...] Unknown 11/15/2024 11:43 AM EDT Narrative Opal Steiner, RN - 11/15/2024 11:43 AM EDT UTOX cup Lot#[id number] Exp. 11/27/25 Internal Pass Control Kiel Shaffer MD POINT OF CARE TEST ENTER/EDIT OR DERABLES Final Result * XR Hand 3+ Views Left (11/07/2024 12:00 PM EDT) Anatomical Region Laterality Modality Upper Extremities, Hand Left [facility] 11/07/2024 12:0 0 PM EDT Narrative 11/07/2024 12:20 PM EDT [address] [address] XRay Report Signed Patient: Sarita Puga MR#: [id number] 92 : 1965 Acct:[id number] Age/Sex: 59 / F ADM Date: 11/07/[facility]: Lorenzo Chavez MD Ordering Physician: Lorenzo Chavez MD Date of Service: 11/07/24 Procedure(s): XR hand LT min 3V Accession Number(s): [id number] cc: Lorenzo Chavez MD Reason for Exam: [...] 11/07/24 1217 DD/ 1200 TD/TT: 11/07/24 1202 Opener: Procedure Note Donotuseinterpreter, Image - 11/07/2024 [facility] [address] [place] [address] XRay Report Signed Patient: Sarita Puga MMR#: [id number] 92 : 1965Acct:[id number] Age/Sex: 59 / FADM Date: 11/07/24 Loc: HO.HHCX Attending Dr: Lorenzo Chavez MD Ordering Physician: Lorenzo Chavez MD Date of Service: 11/07/24 Procedure(s): XR hand LT min 3V Accession Number(s): [id number] cc: Lorenzo Chavez MD Reason for Exam: [...] 11/07/24 1217 DD/ 1200 TD/TT: 11/07/24 1202 Opener: Lorenzo Chavez MD IMG XR PROCEDURES Edited Result - Final * BI Mammogram Screening Tomosynthesis Bilateral (06/03/2023 8:45 AM EDT) Anatomical Region Laterality Modality Breast Bilateral Mammography 06/03/2023 8:45 AM EDT Narrative 06/30/2023 10:24 PM EDT [address] [place] [address] Mammography Report Signed Patient: Sarita Puga MR#: [id number] 92 : 1965 Acct:[id number] Age/Sex: 57 / F ADM Date: 06/03/23 Loc: HO.MAMMO Attending Dr: Kiel Shaffer MD Ordering Physician: Kiel Shaffer MD Results: 1Negative Date of Service: 06/03/23 Follow Up: 1 Year From Orig inal Mammogram Procedure(s): MM tomosynthesis screening BI Accession Number(s): [id number] cc: Kiel Shaffer MD EXAMINATION: MM SCREENING [...] in OV> 06/30/23 2220 DD/ 0845 TD/TT: Opener: Procedure Note Donotuseinterpreter, Image - 06/30/[address] [place] [address] Mammography Report Signed Patient: Sarita Puga MMR#: [id number] 92 : 1965Acct:[id number] Age/Sex: 57 / FADM Date: 06/03/23 Loc: MAMMO Attending Dr: Kiel Shaffer MD Ordering Physician: Kiel Shaffer MDResults: 1Negative Date of Service: 06/03/23Follow Up: 1 Year From Orig ina Mammogram Procedure(s): MM tomosynthesis screening BI Accession Number(s): [id number] cc: NameKiel MD EXAMINATION: MM SCREENING DIGITAL BREAST TOMOSYNTHESIS, [...] for their next mammogram. Dictated By: Nancy Haely MD Signed By: <Electronically signed by Nancy Healy MD in OV> 06/30/23 2220 DD/ 0845 TD/TT: Opener: Kiel Shaffer MD [facility] BI PROCEDURES Edited Result - Final * Albumin, Random Urine W/Creatinine (05/26/2023 8:27 AM EDT) Creatinine, Urine 185.88 mg/dL [facility] Microalbumin Urine 23.0 mg/L [facility] Microalbum Creatinine Ratio Ur 12.3 <30 ug/mg cr [facility] Comment:Albumin/Creatinine R atio Reference Ranges: Normal: < 30 ug/mg creatinine Microalbuminuria: 30 - 300 ug/mg creatinineClinical Albuminuria: > 300 ug/mg creatinine Urine (Urine, Random) 05/26/2023 8:27 AM EDT 05/26/2023 11:19 AM EDT us Kiel Shaffer MD LAB URINE ORDERABLES Final Resul t [facility] [address] [place] [phone] * Colonoscopy (07/01/2022 4:37 PM EDT) Colonoscopy Normal Normal Narrative Emely Devine - 07/01/2022 4:37 PM EDT Recommended 5 year follow up ([facility]) Glo Provider HEALTH MAINTENANCE Final Result * [...] 01/10/2025 Patient has chronic kidney disease 01/10/2025 Insurance [employer] [place] [place] [address] [place] [address] Care Teams Textile Broker Relationship Specialty Start Date End Date Name, MD Kiel [address] [place] [address] PCP - General Family Medicine 07/15/15 Katlyn Rodriguez, AngieD [address] [place] [address] Pharmacist Internal Medicine 10/08/22 Ania Spencer 01/09/25 Marta Ovalle Paper Cup Machine OperatorTransfer And Line Up Worker 05/25/23
--- OUTSIDE RECORDS SUMMARY | 2025-01-14 19:17 | XMS_ITS | Encounter Summary ---
Author Organization [email or web address] Address [address] [facility] 7t [place] [address] Care Team Providers Care Change Manager Name Role Phone Name, Kiel BAILEY Primary Care Provider Katlyn Rodriguez PharmD Unavailable Ania Spencer Unavailable Opal Carrasquillo Unavailable Ania Spencer Unavailable Encounter Details Date Type Department Care Team (Late st Contact Info) Description 11/08/2024 Results Follow-Up [facility] [address] [place] [address] Lorenzo Chavez MD [address] [place] [address] XR Hand 3+ Views Left Social History [...] Description 02/04/2025 11:30 AM EST Clinical Support [address] [address] Opal Steiner RN 02/08/2025 9:30 AM EST Medication Management [address] [address] Katlyn Rodriguez, PharmD [address] [place] [phone] 03/13/2025 11:30 AM EST Telemedicine [address] [address] Kiel Shaffer MD [address] [place] [phone] 04/10/2025 10:45 AM EST Office Visit [address] [address] NameKiel MD [address] [place] [phone] documented as of this encounter Goals Goal [...] documented as of this encounter Care Teams Change Manager Relationship Specialty Start Date End Date Name, MD Kiel [address] [place] [address] PCP - General Family Medicine 07/15/15 Puia, Katlyn, PharmD [address] [place] [address] Pharmacist Internal Medicine 10/08/22 Ania Spencer 08/20/24 11/26/24 Opal Carrasquillo Registered Nurse 10/29/24 11/26/24 Ania Spencer 12/14/24 12/26/24 Marta Ovalle Window Treatment InstallerObstetrician Gynecologist 05/25/23 documented as of this encounter
--- OUTSIDE RECORDS SUMMARY | 2025-01-14 19:17 | XMS_ITS | Encounter Summary ---
Author Organization [employer] Address [address] [place] [address] 7t [place] [address] Care Team Providers Care Wheat Farmer Name Role Phone Name, Kiel BAILEY Primary Care Provider [phone] Katlyn Rodriguez PharmD Unavailable Nehal Ann RN Unavailable Unavailable Ania Spencer Unavailable Opal Carrasquillo Unavailable Ania Spencer Unavailable Ania Spencer Unavailable Reason for Visit * Reason Comments Med Refill Encounter Details Date Type Department Care Team (Late st Contact Info) Description 02/10/2022 Refill [facility] [address] [place], [place] [phone] Name, MD Kiel [address] [place], [place] [phone] Chronic pain syndrome (Primary Dx) Social History [...] Description 02/04/2025 11:30 AM EST Clinical Support [address] [address] Opal Steiner, MARINA 02/08/2025 9:30 AM EST Medication Management [address] [address] Katlyn Rodriguez, PharmD [address] [place] [phone] 03/13/2025 11:30 AM EST Telemedicine [address] [address] NameKiel MD [address] [place] [address] 04/10/2025 10:45 AM EST Office Visit [address] [address] Name, MD Kiel [address] [place] [phone] documented as of this encounter Visit Diagnoses Diagnosis Chronic pain syndrome- Primary documented in this encounter Care Teams Wheat Farmer Relationship Specialty Start Date End Date NameKiel MD [address] [place] [address] PCP - General Family Medicine 07/15/15 Katlyn Rodriguez, PharmD [address] [place] [phone] Pharmacist Internal Medicine 10/08/22 Nehal Ann, MARINA [address] [place] [phone] Registered Nurse Family Medicine 08/20/24 10/29/24 Ania Spencer 08/20/24 11/26/24 Opal Carrasquillo Registered Nurse 10/29/24 11/26/24 Ania Spencer 12/14/24 12/26/24 Ania Spencer 01/09/25 Marta Ovalle Clinical Unit EducatorAssociate Professor Of Pathology 05/25/23 documented as of this encounter
--- OUTSIDE RECORDS SUMMARY | 2025-01-14 19:17 | XMS_ITS | Encounter Summary ---
Author Organization [facility] Address [address] [place] [address] Care Team Providers Care Unix Systems Administrator Name Role Phone Name, Kiel BAILEY Primary Care Provider [phone] Encounter Details Date Type Department Care Team Description 09/10/2022 Social Work [facility] [address] [place] [address] Adina Archer, [facility] Social History Tobacco Use Types Packs/Day Years [...] on filedocumented in this encounter Care Teams Unix Systems Administrator Relationship Specialty Start Date End Date Name, MD Kiel [address] [place] [address] [address] [place] [address] PCP - General Internal Medicine 04/17/18 documented as of this encounter
--- OUTSIDE RECORDS SUMMARY | 2025-01-14 19:17 | XMS_ITS | Encounter Summary ---
Author Organization [employer] Address [address] [facility] 7t [place] [address] Care Team Providers Care Industrial Yard Brake Coupler Name Role Phone Name, Kiel BAILEY Primary Care Provider [phone] Katlyn Rodriguez PharmD Unavailable [phone] Ania Spencer Unavailable Encounter Details Date [...] Description 02/04/2025 11:30 AM EST Clinical Support [address] [address] Opal Steiner RN 02/08/2025 9:30 AM EST Medication Management [address] [address] Katlyn Rodriguez PharmD [address] [place] [phone] 03/13/2025 11:30 AM EST Telemedicine [address] [address] Kiel Shaffer MD [address] [place] [phone] 04/10/2025 10:45 AM EST Office Visit [address] [address] NameKiel MD [address] [place] [phone] documented as of this encounter Goals Goal Patient Goal Type Associated Problems Recent Progress Patient-Stated? Author Record your blood pressure once per day Blood Pressure No Katlyn Rodriguez, PharmD Blood Pressure < 140/90 Blood Pressure 139/89(2024 11:46 AM EST) No Katlyn Rodriguez PharmD Hemoglobin A1c < 7 Result Component 7.8(11/19/202 5 1:16 PM EST) No Puia Katlyn, PharmD [...] Care Plan Patient has chronic kidney disease Maxine Beebe MA Patient has chronic kidney disease Care Plan Patient has chronic kidney disease Maxine Beebe MA Weekly blood pressure task Care Plan [...] Power RN documented as of this encounter Visit [...] as of this encounter Care Teams Industrial Yard Brake Coupler Relationship Specialty Start Date End Date Name, MD Kiel [address] [place], [place] [phone] PCP - General Family Medicine 07/15/15 Katlyn Rodriguez PharmD [address] [place], [place] [phone] Pharmacist Internal Medicine 10/08/22 Ania Spencer 01/09/25 Marta Ovalle Salesperson Terrazzo TilesGeophysical E Logger 05/25/23 documented as of this encounter
--- OUTSIDE RECORDS SUMMARY | 2025-01-14 19:17 | XMS_ITS | Encounter Summary ---
Author Organization [employer] Address [address] [place] [address] 7t [place] [address] Care Team Providers Care Fans Clerk Name Role Phone Name, Kiel BAILEY Primary Care Provider [phone] Katlyn Rodriguez PharmD Unavailable Nehal Ann RN Unavailable Unavailable Ania Spencer Unavailable Opal Carrasquillo Unavailable Ania Spencer Unavailable Ania Spencer Unavailable Reason for Visit * Reason Onset Date Comments Nurse Triage 07/04/2024 Encounter Details Date Type Department Care Team (Late st Contact Info) Description 07/04/2024 Telephone [facility] [address] [place], [place] [phone] Name, MD Kiel [address] [place], [place] [phone] Nurse Triage Social History Tobacco Use Types [...] 07/04/2024 11:25 AM EDT Triage call with [facility] [id number] Z[address]. Pt reports headache over the entire head. No involvement with eye area. BP is 104/60. Pt has been seen by neurologist at [facility] and is being tested [...] caller accepted this outcome. Contact pt at [phone] (malagasy) documented in this encounter Plan of Treatment Upcoming Encounters Date Type Department Care Team (Late st Contact Info) Description 02/04/2025 11:30 AM EST Clinical Support [address] [address] Opal Steiner, MARINA 02/08/2025 9:30 AM EST Medication Management [address] [address] Katlyn Rodriguez PharmD [address] [place] [phone] 03/13/2025 11:30 AM EST Telemedicine [address] [address] NameKiel MD [address] [place] [phone] 04/10/2025 10:45 AM EST Office Visit [address] [phone] Kiel Shaffer MD [address] [place] [address] documented as of this encounter Goals Goal [...] documented as of this encounter Care Teams Fans Clerk Relationship Specialty Start Date End Date Name, MD Kiel [address] [place] [address] PCP - General Family Medicine 07/15/15 Puia, Katlyn, PharmD [address] [place] [address] Pharmacist Internal Medicine 10/08/22 Nheal Ann RN [address] [place] [address] Registered Nurse Family Medicine 08/20/24 10/29/24 Ania Spencer 08/20/24 11/26/24 Opal Carrasquillo Registered Nurse 10/29/24 11/26/24 Ania Spencer 12/14/24 12/26/24 Ania Spencer 01/09/25 Marta Ovalle Retail District ManagerMedical Parasitologist 05/25/23 documented as of this encounter
--- OUTSIDE RECORDS SUMMARY | 2025-01-14 19:17 | XMS_ITS | Encounter Summary ---
Author Organization [employer] Address [address] [place] [address] 7t [place] [address] Care Team Providers Care Golf Club Facer Name Role Phone Name, Kiel BAILEY Primary Care Provider [phone] Katlyn Rodriguez PharmD Unavailable Nehal Ann RN Unavailable Unavailable Ania Spencer Unavailable Opal Carrasquillo Unavailable Ania Spencer Unavailable Ania Spencer Unavailable Encounter Details Date Type Department Care Team (Late Contact Info) Description 03/12/2022 Orders Only [facility] MED & PEDS [address] [place] [address] Millie Sawant LPN Social History Tobacco Use [...] Department Care Team (Late Contact Info) Description 02/04/2025 11:30 AM EST Clinical Support [address] [address] Opal Steiner, RN 02/08/2025 9:30 AM EST Medication Management [address] [address] Katlyn Rodriguez PharmD [address] [place] [address] 03/13/2025 11:30 AM EST Telemedicine [address] [address] Name, MD Kiel [address] [place] [address] 04/10/2025 10:45 AM EST Office Visit [address] [address] Name, MD Kiel [address] [place] [address] documented as of this encounter Visit Diagnoses Not on filedocumented in this encounter Care Teams Golf Club Facer Relationship Specialty Start Date End Date Name, MD Kiel [address] [place] [address] PCP - General Family Medicine 07/15/15 Katlyn Rodriguez, PharmD [address] [place] [address] Pharmacist Internal Medicine 10/08/22 Nehal Ann, MARINA [address] [place] [address] Registered Nurse Family Medicine 08/20/24 10/29/24 Ania Spencer 08/20/24 11/26/24 Opal Carrasquillo Registered Nurse 10/29/24 11/26/24 Ania Spencer 12/14/24 12/26/24 Ania Spencer 01/09/25 Marta Ovalle Test Facility EngineerRn Night 05/25/23 documented as of this encounter
--- OUTSIDE RECORDS SUMMARY | 2025-01-14 19:17 | XMS_ITS | Encounter Summary ---
Author Organization [employer] Address [address] [place] [address] 7t [place] [address] Care Team Providers Care Auto Transmission Technician Name Role Phone Name, Kiel BAILEY Primary Care Provider [phone] Katlyn Rodriguez PharmD Unavailable [phone] Nehal Ann RN Unavailable Unavailable Ania Spencer Unavailable Opal Carrasquillo Unavailable Ania Spencer Unavailable Ania Spencer Unavailable Reason for Visit * Reason Comments Med Refill Encounter Details Date Type Department Care Team (Late st Contact Info) Description 06/27/2023 Refill [facility] [address] [place], [place] [phone] Katlyn Rodriguez, PharmD [address] [place], [place] [phone] Tobacco use disorder Social History Tobacco Use [...] Description 02/04/2025 11:30 AM EST Clinical Support [address] [address] Opal Steiner, MARINA 02/08/2025 9:30 AM EST Medication Management [address] [address] Katlyn Rodriguez, PharmD [address] [place] [address] 03/13/2025 11:30 AM EST Telemedicine [address] [address] NameKiel MD [address] [place] [address] 04/10/2025 10:45 AM EST Office Visit [address] [address] Kiel Shaffer MD [address] [place] [address] documented as of this encounter Goals Goal [...] as of this encounter Care Teams Auto Transmission Technician Relationship Specialty Start Date End Date Name, MD Kiel 230 [place] [address] PCP - General Family Medicine 07/15/15 Puia, Katlyn, PharmD 230 [place] [address] Pharmacist Internal Medicine 10/08/22 Nehal Ann RN 230 [place] [address] Registered Nurse Family Medicine 08/20/24 10/29/24 Ania Spencer 08/20/24 11/26/24 Opal Carrasquillo Registered Nurse 10/29/24 11/26/24 Ania Spencer 12/14/24 12/26/24 Ania Spencer 01/09/25 Marta Ovalle Chief Medical OfficerDexigraph Operator 05/25/23 documented as of this encounter
--- OUTSIDE RECORDS SUMMARY | 2025-01-14 19:17 | XMS_ITS | Encounter Summary ---
Author Organization [employer] Address [address] [place] [address] 7t [place] [address] Care Team Providers Care Clinical Liaison Name Role Phone Name, Kiel BAILEY Primary Care Provider [phone] Katlyn Rodriguez PharmD Unavailable Nehal Ann RN Unavailable Unavailable Ania Spencer Unavailable Opal aCrrasquillo Unavailable Ania Spencer Unavailable Ania Spencer Unavailable Reason for Visit * Reason Onset Date Comments Medication Problem 08/30/2023 Encounter Details Date Type Department Care Team (Late st Contact Info) Description 08/30/2023 Telephone [facility] [address] [place], [place] [phone] Name, MD Kiel 230 [place], [place] [phone] Medication Problem Social History Tobacco Use Types [...] down Not at all 09/02/2023 10:30 AM EDErika Lopez Trouble concentrating on things, such as reading the newspaper or watching television Not at all 09/02/2023 10:30 AM ASAELT Erika Zacarias Moving or speaking so slowly that other people could have noticed? Or the opposite - being so fidgety or restless that you have been moving around a lot more than usual. Not at all 09/02/2023 10:30 AM ASAELT Erika Zacarias Thoughts that you would be [...] 02/04/2025 11:30 AM EST Clinical Support [address] [address] Opal Steiner RN 02/08/2025 9:30 AM EST Medication Management [address] [address] Katlyn Rodriguez, PharmD [address] [place] [address] 03/13/2025 11:30 AM EST Telemedicine [address] [address] Name, MD Kiel [address] [place] [address] 04/10/2025 10:45 AM EST Office Visit [facility] [address] [place] [address] Name, MD Kiel [address] [place] [address] documented as of this encounter Goals Goal [...] as of this encounter Care Teams Clinical Liaison Relationship Specialty Start Date End Date Name, MD Kiel [address] [place] [address] PCP - General Family Medicine 07/15/15 Puia, Katlyn, PharmD [address] [place] [address] Pharmacist Internal Medicine 10/08/22 Nehal Ann, MARINA [address] [place] [address] Registered Nurse Family Medicine 08/20/24 10/29/24 Ania Spencer 08/20/24 11/26/24 Opal Carrasquillo Registered Nurse 10/29/24 11/26/24 Ania Spencer 12/14/24 12/26/24 Ania Spencer 01/09/25 Marta Ovalle Bleacher Sulfite PulpMock Up Assembler 05/25/23 documented as of this encounter
--- OUTSIDE RECORDS SUMMARY | 2025-01-14 19:17 | XMS_ITS | Encounter Summary ---
Author Organization [employer] Address [address] [facility] 7t [place] [address] Care Team Providers Care Rehabilitation Consultant Name Role Phone Name, Kiel BAILYE Primary Care Provider Katlyn Rodriguez PharmD Unavailable Nehal Ann RN Unavailable Unavailable Ania Spencer Unavailable Opal Carrasquillo Unavailable Ania Spencer Unavailable Ania Spencer Unavailable Reason for Visit * Reason Comments Med Refill Encounter Details Date Type Department Care Team (Late st Contact Info) Description 09/07/2023 Refill [facility] CH[facility] MED & PEDS [address] [place], [place] [phone] Name, MD Kiel 230 [place], [place] [phone] Type 2 diabetes mellitus with other specified [...] Description 02/04/2025 11:30 AM EST Clinical Support [address] [address] Opal Steiner, RN 02/08/2025 9:30 AM EST Medication Management [address] [address] Katlyn Rodriguez, PharmD [address] [place] [address] 03/13/2025 11:30 AM EST Telemedicine [address] [address] Kiel Shaffer MD [address] [place] [address] 04/10/2025 10:45 AM EST Office Visit [address] [address] Kiel Shaffer MD 230 [place] [address] documented as of this encounter Goals Goal [...] documented as of this encounter Care Teams Rehabilitation Consultant Relationship Specialty Start Date End Date Name, MD Kiel [address] [place] [address] PCP - General Family Medicine 07/15/15 Puia, Katlyn, PharmD [address] [place] [address] Pharmacist Internal Medicine 10/08/22 Nehal Ann RN [address] [place] [address] Registered Nurse Family Medicine 08/20/24 10/29/24 Ania Spencer 08/20/24 11/26/24 Opal Carrasquillo Registered Nurse 10/29/24 11/26/24 Ania Spencer 12/14/24 12/26/24 Ania Spencer 01/09/25 Marat Ovalle Founder Chairman And Chief Creative OfficerRadio Time Buyer 05/25/23 documented as of this encounter
--- OUTSIDE RECORDS SUMMARY | 2025-01-14 19:17 | XMS_ITS | Clinical Summary ---
Author Organization [facility] Address [address] [place] [address] Care Team Providers Care Vice President Payment Name Role Phone Name, Kiel BAILEY Primary Care Provider [phone] Allergies Active Allergy Reactions Criticality Noted Date [...] age to complete this topic Care Teams Vice President Payment Relationship Specialty Start Date End Date Name, MD Kiel 230 [facility] [address] [place] [address] PCP - General Internal Medicine 04/17/18
--- OUTSIDE RECORDS SUMMARY | 2025-01-14 19:17 | XMS_ITS | Encounter Summary ---
Author Organization [employer] Address [address] [place] [address] 7t [place] [address] Care Team Providers Care Trimmer And Reinforcer Name Role Phone Name, Kiel BAILEY Primary Care Provider [phone] Katlyn Rodriguez PharmD Unavailable [phone] Nehal Ann RN Unavailable Unavailable Ania Spencer Unavailable Opal Carrasquillo Unavailable Ania Spencer Unavailable Ania Spencer Unavailable Reason for Visit * Reason Comments Med Refill Encounter Details Date Type Department Care Team (Late st Contact Info) Description 04/15/2023 Refill [facility] [address] [place], [place] [phone] Yaneth Restrepo FNP [address] [place], [place] [phone] Diabetes mellitus type 2 in obese (CMS/HCC) [...] the past 12 months, has t he Shots, gas, oil or water company threatened to [...] 02/04/2025 11:30 AM EST Clinical Support [address] [address] Opal Steiner, MARINA 02/08/2025 9:30 AM EST Medication Management [address] [address] Katlyn Rodriguez, PharmD [address] [place] [address] 03/13/2025 11:30 AM EST Telemedicine [address] [address] NameKiel MD [address] [place] [address] 04/10/2025 10:45 AM EST Office Visit [address] [address] Kiel Shaffer MD [address] [place] [address] documented as of this encounter Goals Goal [...] documented as of this encounter Care Teams Trimmer And Reinforcer Relationship Specialty Start Date End Date Name, MD Kiel 230 [place] [address] PCP - General Family Medicine 07/15/15 AdeniaKatlyn, PharmD [address] [place] [address] Pharmacist Internal Medicine 10/08/22 Nehal Ann, MARINA [address] [place] [address] Registered Nurse Family Medicine 08/20/24 10/29/24 Ania Spencer 08/20/24 11/26/24 Opal Carrasquillo Registered Nurse 10/29/24 11/26/24 Ania Spencer 12/14/24 12/26/24 Ania Spencer 01/09/25 Marta Ovalle Vice President Of Software EngineeringBuzzsaw Operator Helper 05/25/23 documented as of this encounter
--- OUTSIDE RECORDS SUMMARY | 2025-01-14 19:17 | XMS_ITS | Encounter Summary ---
Author Organization [employer] Address [address] [place] [address] 7t [place] [address] Care Team Providers Care Co Founder And President Name Role Phone Name, Kiel BAILEY Primary Care Provider Katlyn Rodriguez PharmD Unavailable Nehal Ann RN Unavailable Unavailable Ania Spencer Unavailable Opal Carrasquillo Unavailable Ania Spencer Unavailable Ania Spencer Unavailable Encounter Details Date Type Department Care Team (Late st Contact Info) Description 10/29/2022 Abstract [facility]INE [address] [place], [place] [phone] Name, MD Kiel 230 [place] [address] Social History Tobacco Use Types Packs/Day Years [...] Description 02/04/2025 11:30 AM EST Clinical Support [address] [address] Opal Steiner RN 02/08/2025 9:30 AM EST Medication Management [address] [address] PuiaKatlyn, PharmD [address] [place] [address] 03/13/2025 11:30 AM EST Telemedicine [address] [address] Kiel Shaffer MD [address] [place] [address] 04/10/2025 10:45 AM EST Office Visit [address] [address] Kiel Shaffer MD [address] [place] [address] documented as of this encounter Goals Goal [...] encounter Results * Diabetes Eye Exam (05/26/2022) [facility] Eye Exam Normal Normal Kiel Shaffer MD HEALTH MAINTENANCE Final Result documented in this encounter Visit Diagnoses Not on filedocumented in this encounter Additional Health Concerns Assessment Noted Time PHQ-9 Depression Total Score: 7 07/15/19 23 2:39 PM EDT documented as of this encounter Care Teams Co Founder And President Relationship Specialty Start Date End Date Kiel Shaffer MD [address] [place] [address] PCP - General Family Medicine 07/15/15 Katlyn Rodriguez PharmD [address] [place] [address] Pharmacist Internal Medicine 10/08/22 Nehal Ann, MARINA 230 [place] [address] Registered Nurse Family Medicine 08/20/24 10/29/24 Ania Spencer 08/20/24 11/26/24 Opal Carrasquillo Registered Nurse 10/29/24 11/26/24 Ania Spencer 12/14/24 12/26/24 Ania Spencer 01/09/25 Marta Ovalle Child And Family CounselorPlastic Extrusion Operator 05/25/23 documented as of this encounter
--- OUTSIDE RECORDS SUMMARY | 2025-01-14 19:17 | XMS_ITS | Encounter Summary ---
Author Organization [employer] Address [address] [place] [address] 7t [place] [address] Care Team Providers Care Intermodal Truck Driver Name Role Phone Name, Kiel BAILEY Primary Care Provider Katlyn Rodriguez PharmD Unavailable Nehal Ann RN Unavailable Unavailable Ania Spencer Unavailable Opal Carrasquillo Unavailable Ania Spencer Unavailable Ania Spencer Unavailable Reason for Visit * Reason Comments Med Refill Encounter Details Date Type Department Care Team (Late st Contact Info) Description 04/25/2022 Refill [facility]INE 230 [place], [place] [phone] Name, MD Kiel 230 [place], [place] [phone] Diabetes mellitus type 2 in obese (CMS/HCC) [...] 02/04/2025 11:30 AM EST Clinical Support [address] [address] Opal Steiner RN 02/08/2025 9:30 AM EST Medication Management [address] [address] Katlyn Rodriguez PharmD [address] [place] [address] 03/13/2025 11:30 AM EST Telemedicine [address] [address] Name, MD Kiel [address] [place] [address] 04/10/2025 10:45 AM EST Office Visit [address] [address] Name, MD Kiel [address] [place] [address] documented as of this encounter Visit Diagnoses Diagnosis Diabetes mellitus type 2 in obese- Primary Type II or unspecified type diabetes mellitus without mention of complication, not stated as uncontrolled documented in this encounter Care Teams Intermodal Truck Driver Relationship Specialty Start Date End Date Name, MD Kiel [address] [place] [address] PCP - General Family Medicine 07/15/15 Katlyn Rodriguez PharmD [address] [place] [address] Pharmacist Internal Medicine 10/08/22 Nehal Ann RN [address] [place] [address] Registered Nurse Family Medicine 08/20/24 10/29/24 Ania Spencer 08/20/24 11/26/24 Opal Carrasquillo Registered Nurse 10/29/24 11/26/24 Ania Spencer 12/14/24 12/26/24 Ania Spencer 01/09/25 Marta Ovalle Food AdviserFiber Picker 05/25/23 documented as of this encounter
--- OUTSIDE RECORDS SUMMARY | 2025-01-14 19:17 | XMS_ITS | Encounter Summary ---
Author Organization [employer] Address [address] [facility] 7t [place] [address] Care Team Providers Care Converter Operator Name Role Phone Name, Kiel BAILEY Primary Care Provider [phone] Katlyn Rodriguez PharmD Unavailable [phone] Ania Spencer Unavailable Reason for Visit * Reason Comments Care Coordination [facility] Follow Up Encounter Details Date Type Department Care Team (Latest Contact Info) Description 01/09/2025 Patient Outreach [facility] CHC MED & PEDS [address] [place] [address] Name, MD Kiel 230 [place] [address] Care Coordination ([facility] ED Follow Up) Social History Tobacco Use [...] as of this encounter Progress Notes * Ania Spencer - 01/09/2025 11:48 AM EST [facility] assigned patient visited [facility] ED on 01/08/25. ED visit note has been scanned intopatient's chart. Notification sent to the Clinical team nurses to follow up with patient for ED status check and medication reconciliation. * Renetta Power RN - 01/09/2025 11:48 AM EST Tc to pt via BLS ID: [id number] to do status check for bronchitis from [facility] ED on 01/05/25. No answer, lvm to return call and ask to speak to blue team nurses. documented in this encounter Plan of Treatment Upcoming Encounters Date Type Department Care Team (Late st Contact Info) Description 02/04/2025 11:30 AM EST Clinical Support [facility] MED[facility]INE [address] [place] [address] Opal Steiner, MARINA 02/08/2025 9:30 AM EST Medication Management [facility] [address] [place] [address] Puia, Katlyn, PharmD [address] [place] [address] 03/13/2025 11:30 AM EST Telemedicine [address] [address] Name, MD Kiel [address] [place] [address] 04/10/2025 10:45 AM EST Office Visit [address] [address] NameKiel MD [address] [place] [address] documented as of this encounter Goals Goal [...] Plan Weekly blood pressure task No Noni Pierson, RN Weekly blood pressure task Care Plan Weekly blood pressure task No Noni Pierson, MARINA Patient has chronic kidney disease Care Plan [...] documented as of this encounter Care Teams Converter Operator Relationship Specialty Start Date End Date Name, MD Kiel [address] [place] [address] PCP - General Family Medicine 07/15/15 Katlyn Rodriguez, Bni [address] [place] [address] Pharmacist Internal Medicine 10/08/22 Ania Spencer 01/09/25 Marta Ovalle Surgical Services TechElectronic Equipment Set Up Operator 05/25/23 documented as of this encounter
--- OUTSIDE RECORDS SUMMARY | 2025-01-14 19:17 | XMS_ITS | Encounter Summary ---
Author Organization [employer] Address [address] [facility] 7t [place] [address] Care Team Providers Care Enlisted Advisor Name Role Phone Name, Kiel BAILEY Primary Care Provider [phone] Katlyn Rodriguez PharmD Unavailable [phone] Ania Spencer Unavailable Reason for Visit * Reason Comments Med Refill Encounter Details Date Type Department Care Team ([facility] st Contact Info) Description 01/08/2025 Refill [facility] 230 [place] [address] Anisha Gonzalez NP 230 [place], [place] [phone] Cerebellar mass; Chronic intractable headache, unspecified headache [...] Description 02/04/2025 11:30 AM EST Clinical Support [address] [address] Opal Steiner RN 02/08/2025 9:30 AM EST Medication Management [address] [address] Katlyn Rodriguez, PharmD [address] [place] [address] 03/13/2025 11:30 AM EST Telemedicine [address] [address] Kiel Shaffer MD [address] [place] [address] 04/10/2025 10:45 AM EST Office Visit [address] [address] Kiel Shaffer MD [address] [place] [address] documented as of this encounter Goals Goal [...] documented as of this encounter Care Teams Enlisted Advisor Relationship Specialty Start Date End Date Name, MD Kiel 230 [place] [address] PCP - General Family Medicine 07/15/15 Puia, Katlyn, PharmD 230 [place] [address] Pharmacist Internal Medicine 10/08/22 Ania Spencer 01/09/25 Marta Ovalle Machine Assembler For Puller OverHydraulic Plumber 05/25/23 documented as of this encounter
--- OUTSIDE RECORDS SUMMARY | 2025-01-14 19:17 | XMS_ITS | Encounter Summary ---
Author Organization [employer] Address [address] [facility] 7t [place] [address] Care Team Providers Care Digital Content Marketing Manager Name Role Phone Name, Kiel BAILEY Primary Care Provider Katlyn Rodriguez PharmD Unavailable [phone] Ania Spencer Unavailable Encounter Details Date Type Department Care Team (Late st Contact Info) Description 01/09/2025 Patient Outreach [facility] MEDICINE 230 [place] [address] Name, MD Kiel 230 [place] [address] Social History Tobacco Use Types Packs/Day Years [...] Description 02/04/2025 11:30 AM EST Clinical Support [address] [address] Opal Steiner RN 02/08/2025 9:30 AM EST Medication Management [address] [address] Katlyn Rodriguez, PharmD [address] [place] [address] 03/13/2025 11:30 AM EST Telemedicine [address] [address] Kiel Shaffer MD [address] [place] [address] 04/10/2025 10:45 AM EST Office Visit [address] [address] Kiel Shaffer MD [address] [place] [address] documented as of this encounter Goals Goal [...] Plan Patient has chronic kidney disease No pOal Steiner RN Patient has chronic kidney disease Care Plan Patient has chronic kidney disease No Opal Steiner RN Weekly blood pressure task Care Plan Weekly blood pressure task No Ania Spenecr Weekly blood pressure task Care Plan Weekly [...] Plan Weekly blood pressure task No Maxine Dimsa [place] Patient has chronic kidney disease Care Plan Patient has chronic kidney disease No Maxine Dimas [place] Patient has chronic kidney disease Care Plan Patient has chronic kidney disease Maxine Beebe MA Weekly blood pressure task Care Plan Weekly blood pressure task Maxine Beebe MA Weekly blood pressure task [...] as of this encounter Care Teams Digital Content Marketing Manager Relationship Specialty Start Date End Date Name, MD Kiel 230 [place] [address] PCP - General Family Medicine 07/15/15 Katlyn Rodriguez PharmD 230 [place] [address] Pharmacist Internal Medicine 10/08/22 Ania Spencer 01/09/25 Marta Ovalle Mapping EngineerStraightening Machine Operator 05/25/23 documented as of this encounter
--- OUTSIDE RECORDS SUMMARY | 2025-01-14 19:18 | XMS_ITS | Encounter Summary ---
Author Organization [employer] Address [address] [place] [address] 7t [place] [address] Care Team Providers Care Otr Hazmat Company Driver Name Role Phone Name, Kiel BAILEY Primary Care Provider [phone] Katlyn Rodriguez PharmD Unavailable Nehal Ann RN Unavailable Unavailable Ania Spencer Unavailable Opal Carrasquillo Unavailable Ania Spencer Unavailable Ania Spencer Unavailable Reason for Visit * Reason Onset Date Comments Durable Medical Equipment 01/24/2023 Encounter Details Date Type Department Care Team (Late st Contact Info) Description 01/24/2023 Telephone [facility] MEDICINE 230 [place], [place] [phone] Name, MD Kiel 230 [place] [address] Durable Medical Equipment Social History Tobacco Use [...] to errol. Any questions, contact pt at [phone] documented in this encounter Plan of Treatment Upcoming Encounters Date Type Department Care Team (Late st Contact Info) Description 02/04/2025 11:30 AM EST Clinical Support [address] [address] Opal Steiner, RN 02/08/2025 9:30 AM EST Medication Management [address] [address] Katlyn Rodriguez, AngieD [address] [place] [address] 03/13/2025 11:30 AM EST Telemedicine [address] [address] Name, MD Kiel [address] [place] [address] 04/10/2025 10:45 AM EST Office Visit [facility] [address] [facility] [place] [address] Name, MD [facility] [place] [place] [address] documented as of this encounter Goals Goal [...] documented as of this encounter Care Teams Otr Hazmat Company Driver Relationship Specialty Start Date End Date Name, [place] [address] PCP - General Family Medicine 07/15/15 Puia, Katlyn, [place] [address] Pharmacist Internal Medicine 10/08/22 Nehal Ann, MARINA [address] [place] [address] Registered Nurse Family Medicine 08/20/24 10/29/24 Ania Spencer 08/20/24 11/26/24 Opal Carrasquillo Registered Nurse 10/29/24 11/26/24 Ania Spencer 12/14/24 12/26/24 Ania Spencer 01/09/25 Marta Ovalle Supply Requirements OfficerCardroom Attendant 05/25/23 documented as of this encounter
--- OUTSIDE RECORDS SUMMARY | 2025-01-14 19:18 | XMS_ITS | Encounter Summary ---
Author Organization [employer] Address [address] [place] [address] 7t [place] [address] Care Team Providers Care Hedis Manager Name Role Phone Name, Kiel BAILEY Primary Care Provider [phone] Katlyn Rodriguez PharmD Unavailable [phone] Nehal Ann RN Unavailable Unavailable Ania Spencer Unavailable Opal Carrasquillo Unavailable [phone] Ania Spencer Unavailable Ania Spencer Unavailable Reason for Referral * Consultation (Routine) - Closed Specialty Diagnoses / Procedures Referred By Contremy t Referred To Contact Occupational Therapy Diagnoses Weakness of both lower extremities Hemiparesis of left dominant side as late effect of cerebral infarction (CMS/HCC) (HCC) Lizzie Alfaro NP [address] [place] [address] Phone: tel: fax: [facility] [address] [place] [address] Phone: tel: fax: Referral ID Status Reason Start Date Expiration Date V isits Requested Visits Authorized [id number] Closed Specialty Services Required 09/06/2024 09/06/2025 20 20 * Consultation (Routine) - Closed Specialty Diagnoses / Procedures Referred By Contremy hoover Referred To Contact Physical Therapy Diagnoses Weakness of both lower extremities Lizzie Alfaro NP [address] [place] [address] Phone: tel: fax: [facility] [address] [place], [place] Phone: tel: fax: Referral ID Status Reason Start Date Expiration Date V isits Requested Visits Authorized [id number] Closed Specialty Services Required 09/06/2024 09/06/2025 20 20 Encounter Details Date Type Department Care Team (Late st Contact Info) Description 09/06/2024 Orders Only [facility] [address] [place], [place] [phone] Lizzie Alfaro NP [address] [place], [place] [phone] Weakness of both lower extremities (Primary Dx); [...] Description 02/04/2025 11:30 AM EST Clinical Support [address] [address] Opal Steiner RN 02/08/2025 9:30 AM EST Medication Management [address] [address] Katlyn Rodriguez, PharmD [address] [place] [address] 03/13/2025 11:30 AM EST Telemedicine [address] [address] Kiel Shaffer MD [address] [place] [address] 04/10/2025 10:45 AM EST Office Visit [address] [address] NameKiel MD [address] [place] [address] Scheduled Referrals Name Type Priority Associated Diagnoses [...] side as late effect of cerebral infarction ([facility]) ([facility]) documented in this encounter Additional Health Concerns Assessment Noted Time PHQ-9 Depression Total Score: 7 09/05/19 11:46 AM EDT documented as of this encounter Care Teams Hedis Manager Relationship Specialty Start Date End Date Name, MD Kiel [address] [place] [address] PCP - General Family Medicine 07/15/15 Katlyn Rodriguez, PharmD [address] [place] [address] Pharmacist Internal Medicine 10/08/22 Nehal Ann, MARINA [address] [place] [address] Registered Nurse Family Medicine 08/20/24 10/29/24 Ania Spencer 08/20/24 11/26/24 Opal Carrasquillo Registered Nurse 10/29/24 11/26/24 Ania Spencer 12/14/24 12/26/24 Ania Spencer 01/09/25 Marta Ovalle Loom Winder TenderMotorcycle Racer 05/25/23 documented as of this encounter
--- OUTSIDE RECORDS SUMMARY | 2025-01-14 19:18 | XMS_ITS | Encounter Summary ---
Author Organization [employer] Address [address] [place] [address] 7t [place] [address] Care Team Providers Care Network Planner Name Role Phone Name, Kiel BAILEY Primary Care Provider [phone] Katlyn Rodriguez PharmD Unavailable [phone] Nehal Ann RN Unavailable Unavailable Ania Spencer Unavailable Opal Carrasquillo Unavailable Ania Spencer Unavailable Ania Spencer Unavailable Reason for Visit * Reason Onset Date Comments FYI 08/03/2024 Encounter Details Date Type Department Care Team (Late st Contact Info) Description 08/03/[address] [facility] [address] [place], [place] [phone] Name, MD Kiel [address] [place], [place] [phone] FY Social History Tobacco Use Types Packs/Day [...] will be admitting pt for OT and long-term. If any questions you can contact pt at [phone], documented in this encounter Plan of Treatment Upcoming Encounters Date Type Department Care Team (Late st Contact Info) Description 02/04/2025 11:30 AM EST Clinical Support [address] [phone] Opal Steiner RN 02/08/2025 9:30 AM EST Medication Management [address] [phone] PuiaKatlyn, PharmD [address] [place] [address] 03/13/2025 11:30 AM EST Telemedicine [address] [phone] NameKiel MD [address] [place] [address] 04/10/2025 10:45 AM EST Office Visit [address] [phone] Kiel Shaffer MD [address] [place] [address] documented as of this encounter Goals Goal [...] as of this encounter Care Teams Network Planner Relationship Specialty Start Date End Date Name, MD Kiel [address] [place] [address] PCP - General Family Medicine 07/15/15 Puia, Katlyn, PharmD [address] [place] [address] Pharmacist Internal Medicine 8/18/23 Nehal Ann, MARINA 230 [facility] [place] [address] Registered Nurse Family Medicine 08/20/24 10/29/24 Ania Spencer 08/20/24 11/26/24 Opal Carrasquillo Registered Nurse 10/29/24 11/26/24 Ania Spencer 12/14/24 12/26/24 Ania Spencer 01/09/25 Marta Ovalle Attending PsychiatristVocational Placement Specialist 05/25/23 documented as of this encounter
--- OUTSIDE RECORDS SUMMARY | 2025-01-14 19:18 | XMS_ITS | Encounter Summary ---
Author Organization [employer] Address [address] [place] [address] 7t [place] [address] Care Team Providers Care Body Technician/Painter Name Role Phone Name, Kiel BAILEY Primary Care Provider [phone] Katlyn Rodriguez PharmD Unavailable Nehal Ann RN Unavailable Unavailable Anai Spencer Unavailable Opal Carrasquillo Unavailable Ania Spencer Unavailable Ania Spencer Unavailable Encounter Details Date Type Department Care Team (Late st Contact Info) Description 07/01/2022 Abstract [facility] 230 [place], [place] [phone] Name, MD Kiel 230 [place], [place] [phone] Social History Tobacco Use Types Packs/Day Years [...] Description 02/04/2025 11:30 AM EST Clinical Support [address] [address] Opal Steiner RN 02/08/2025 9:30 AM EST Medication Management [address] [address] Katlyn Rodriguez PharmD [address] [place] [address] 03/13/2025 11:30 AM EST Telemedicine [address] [address] Kiel Shaffer MD [address] [place] [address] 04/10/2025 10:45 AM EST Office Visit [address] [address] NameKiel MD [address] [place] [address] documented as of this encounter Procedures Procedure Name Priority Date/Time Associated Diagnosis Comments COLONOSCOPY Routine 07/01/2022 4:37 PM EDT documented in this encounter Results * Colonoscopy (07/01/2022 4:37 PM EDT) Colonoscopy Normal Normal Narrative Sybil Emely - 07/01/2022 4:37 PM EDT Recommended 5 year follow up ([facility] us Historical Provider HEALTH MAINTENANCE Final Result documented in this encounter Visit Diagnoses Not on filedocumented in this encounter Care Teams Body Technician/Painter Relationship Specialty Start Date End Date Name, MD Kiel [address] [place] [address] PCP - General Family Medicine 07/15/15 Katlyn Rodriguez PharmD [facility] [place] [address] Pharmacist Internal Medicine 10/08/22 Nehal Ann, MARINA [address] [place] [address] Registered Nurse Family Medicine 08/20/24 10/29/24 Ania Spencer 08/20/24 11/26/24 Opal Carrasquillo Registered Nurse 10/29/24 11/26/24 Ania Spencer 12/14/24 12/26/24 Ania Spencer 01/09/25 Marta Ovalle Cell TechnicianFilling Mixer 05/25/23 documented as of this encounter
--- OUTSIDE RECORDS SUMMARY | 2025-01-14 19:18 | XMS_ITS | Encounter Summary ---
Author Organization [employer] Address [address] [place] [address] 7t [place] [address] Care Team Providers Care Senior Customer Service Representative Name Role Phone Name, Kiel BAILEY Primary Care Provider [phone] Katlyn Rodriguez PharmD Unavailable Nehal Ann RN Unavailable Unavailable Ania Spencer Unavailable Opal Carrasquillo Unavailable Ania Spencer Unavailable Ania Spencer Unavailable Encounter Details Date Type Department Care Team (Late st Contact Info) Description 02/23/2022 Orders Only [facility] 230 [place], [place] [phone] Name, MD Kiel 230 [place], [place] [phone] Social History Tobacco Use Types Packs/Day Years [...] Description 02/04/2025 11:30 AM EST Clinical Support [address] [address] Opal Steiner, RN 02/08/2025 9:30 AM EST Medication Management [address] [address] Katlyn Rodriguez PharmD [address] [place] [address] 03/13/2025 11:30 AM EST Telemedicine [address] [address] NameKiel MD [address] [place] [address] 04/10/2025 10:45 AM EST Office Visit [address] [address] Name, MD Kiel [address] [place] [address] documented as of this encounter Visit Diagnoses Not on filedocumented in this encounter Care Teams Senior Customer Service Representative Relationship Specialty Start Date End Date NameKiel MD [address] [place] [address] PCP - General Family Medicine 07/15/15 Katlyn Rodriguez, PharmD [address] [place] [address] Pharmacist Internal Medicine 10/08/22 Nehal Ann, MARINA [address] [place] [address] Registered Nurse Family Medicine 08/20/24 10/29/24 Ania Spencer 08/20/24 11/26/24 Opal Carrasquillo Registered Nurse 10/29/24 11/26/24 Ania Spencer 12/14/24 12/26/24 Ania Spencer 01/09/25 Marta Ovalle Rn TransplantPublic Health Officer 05/25/23 documented as of this encounter
--- OUTSIDE RECORDS SUMMARY | 2025-01-14 19:18 | XMS_ITS | Encounter Summary ---
Author Organization [employer] Address [address] [facility] 7t [place] [address] Care Team Providers Care Laser Beam Cutter Name Role Phone Name, Kiel ABILEY Primary Care Provider [phone] Katlyn Rodriguez PharmD Unavailable [phone] Ania Spencer Unavailable Encounter Details Date Type Department Care Team (Late st Contact Info) Description 01/09/2025 Telephone [facility] [address] [place] [address] Renetta Power, RN Social History Tobacco Use Types Packs/Day Years [...] Telephone Encounter - Renetta Power RN - 01/09/2025 4:04 PM EST Per Angie NugentD Hi! I saw this patient today & Dr. Shaffer will see her tomorrow. 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 Can you please load the documents to [employer] for review? Thank you! . ED [place] [facility] and given to spencer team lockstitch front edge tape sewer to scan into pt chart. * Telephone Encounter - Renetta Power RN - 01/09/2025 4:04 PM EST ----- Message from Katlyn Rodriguez sent at 01/09/2025 1:24 PM EST ----- Regarding: ER visit yesterday Hi! I saw this patient today & Dr. Shaffer will see her tomorrow. 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 Can you please load the documents to [employer] for review? Thank you! documented in this encounter Plan of Treatment Upcoming Encounters Date Type Department Care Team ([facility] st Contact Info) Description 02/04/2025 11:30 AM EST Clinical Support [address] [address] Opal Steiner RN 02/08/2025 9:30 AM EST Medication Management [address] [address] PuiaKatlny, PharmD [address] [place] [address] 03/13/2025 11:30 AM EST Telemedicine [address] [address] Kiel Shaffer MD [address] [place] [address] 04/10/2025 10:45 AM EST Office Visit [address] [address] Kiel Shaffer MD [address] [place] [address] documented as of this encounter Goals Goal [...] documented as of this encounter Care Teams Laser Beam Cutter Relationship Specialty Start Date End Date Name, MD Kiel [address] [place] [address] PCP - General Family Medicine 07/15/15 Katlyn Rodriguez PharmD [address] [place] [address] Pharmacist Internal Medicine 10/08/22 Ania Spencer 01/09/25 Marta Ovalle Gang Drill OperatorPromotional Model 05/25/23 documented as of this encounter
--- OUTSIDE RECORDS SUMMARY | 2025-01-14 19:18 | XMS_ITS | Encounter Summary ---
Author Organization [employer] Address [address] [facility] 7t [place] [address] Care Team Providers Care Sales Clerk Supervisor Name Role Phone Name, Kiel BAILEY Primary Care Provider [phone] Katlyn Rodriguez PharmD Unavailable [phone] Ania Spencer Unavailable Encounter Details Date Type Department Care Team (Latest Contact Info) Description 01/10/2025 Travel Social History Tobacco Use Types Packs/Day [...] Description 02/04/2025 11:30 AM EST Clinical Support [address] [address] Opal Steiner RN 02/08/2025 9:30 AM EST Medication Management [address] [address] Katlyn Rodriguez PharmD [address] [place] [address] 03/13/2025 11:30 AM EST Telemedicine [address] [address] Kiel Shaffer MD [address] [place] [address] 04/10/2025 10:45 AM EST Office Visit [address] [address] NameKiel MD [address] [place] [address] documented as of this encounter Goals Goal [...] of this encounter Care Teams Sales Clerk Supervisor Relationship Specialty Start Date End Date Name, MD Kiel [address] [place] [address] PCP - General Family Medicine 07/15/15 Katlyn Rodriguez PharmD 230 [place] [address] Pharmacist Internal Medicine 10/08/22 Ania Spencer 01/09/25 Marta Ovalle Sheet Metal Pattern CutterAdobe Layer 05/25/23 documented as of this encounter
--- OUTSIDE RECORDS SUMMARY | 2025-01-14 19:18 | XMS_ITS | Encounter Summary ---
Author Organization [employer] Address [address] [facility] 7t [place] [address] Care Team Providers Care Shroud Line Tier Name Role Phone Name, Kiel BAILEY Primary Care Provider [phone] Katlyn Rodriguez PharmD Unavailable Nehal Ann RN Unavailable Unavailable Ania Spencer Unavailable Opal Carrasquillo Unavailable [phone] Ania Spencer Unavailable Ania Spencer Unavailable Reason for Visit * Reason Comments Med Refill Encounter Details Date Type Department Care Team (Late st Contact Info) Description 06/08/2024 Refill [facility] [address] [place], [place] [phone] Name, MD Kiel [address] [place] [address] Chronic pain syndrome Social History Tobacco Use [...] Description 02/04/2025 11:30 AM EST Clinical Support [address] [address] Opal Steiner RN 02/08/2025 9:30 AM EST Medication Management [address] [address] Katlyn Rodriugez, PharmD [address] [place] [address] 03/13/2025 11:30 AM EST Telemedicine [address] [address] Name, MD Kiel [address] [place] [address] 04/10/2025 10:45 AM EST Office Visit [address] [address] Name, MD Kiel [address] [place] [address] documented as of this encounter Goals Goal [...] documented as of this encounter Care Teams Shroud Line Tier Relationship Specialty Start Date End Date Name, MD Kiel [address] [place] [address] PCP - General Family Medicine 07/15/15 Puia, Katlyn, PharmD [address] [place] [address] Pharmacist Internal Medicine 10/08/22 Nehal Ann, MARINA [address] [place] [address] Registered Nurse Family Medicine 08/20/24 10/29/24 Ania Spencer 08/20/24 11/26/24 Opal Carrasquillo Registered Nurse 10/29/24 11/26/24 Ania Spencer 12/14/24 12/26/24 Ania Spencer 01/09/25 Marta Ovalle Repairer HairspringCandy Mixer 05/25/23 documented as of this encounter
--- OUTSIDE RECORDS SUMMARY | 2025-01-14 19:18 | XMS_ITS | Encounter Summary ---
Author Organization [employer] Address [address] [facility] 7t [place] [address] Care Team Providers Care Seafood Process Worker Name Role Phone NameKiel MD Primary Care Provider [phone] Katlyn Rodriguez PharmD Unavailable [phone] Ania Spencre Unavailable Reason for Visit * Reason Onset Date Comments Chart Prep 01/09/2025 Encounter Details Date Type Department Care Team ([facility] st Contact Info) Description 01/09/2025 Telephone [facility] [address] [place] [address] Name, MD Kiel [address] [place] [address] Chart Prep Social History Tobacco Use Types [...] encounter Miscellaneous Notes * Telephone Encounter - Maxine Dimas [place] - 01/09/2025 3:54 PM EST Chart Prep Labs: not done Images: not done Referrals: complete notes are in chart Vaccines due: Covid and RSV Screenings: eye exam and foot examDiabetes: Urine Protein Screening Overdue care gaps: Glucose documented in this encounter Plan of Treatment Upcoming Encounters Date Type Department Care Team (Late st Contact Info) Description 02/04/2025 11:30 AM EST Clinical Support [address] [address] Opal Steiner, RN 02/08/2025 9:30 AM EST Medication Management [address] [address] Katlyn Rodriguez, AngieD [address] [place] [address] 03/13/2025 11:30 AM EST Telemedicine [address] [address] Name, MD Kiel [address] [place] [address] 04/10/2025 10:45 AM EST Office Visit [facility] [address] [place] [address] Name, MD Kiel [address] [place] [address] documented as of this encounter Goals Goal [...] Patient has chronic kidney disease No Noni Pierson, MARINA Patient has chronic kidney disease Care Plan Patient has chronic kidney disease No Noni Pierson RN Weekly blood pressure task Care Plan Weekly blood pressure task No Opal Steiner RN Weekly blood pressure task Care Plan Weekly blood pressure task No Opal Steiner, MARINA Patient has chronic kidney disease Care Plan Patient has chronic kidney disease No Opal Steiner, MARINA Patient has chronic kidney disease Care Plan Patient has chronic kidney disease No Opal Steiner, MARINA Weekly blood pressure task Care Plan [...] documented as of this encounter Care Teams Seafood Process Worker Relationship Specialty Start Date End Date Name, MD Kiel [address] [place] [address] PCP - General Family Medicine 07/15/15 Katlyn Rodriguez PharmD [address] [place] [address] Pharmacist Internal Medicine 10/08/22 Ania Spencer 01/09/25 Marta Ovalle Inspector Repairer SandstoneTerritory Sales Executive 05/25/23 documented as of this encounter
--- OUTSIDE RECORDS SUMMARY | 2025-01-14 19:18 | XMS_ITS | Encounter Summary ---
Author Organization [facility] Address [address] [facility] [address] [place] [address] Phone Care Team Providers Care Compugraph Operator Name Role Phone Unavailable Primary Care Provider Unavailabl e Encounter Details Date Type Department Care Team (Late st Contact Info) Description 01/04/2020 Procedure Pass [facility] [address] [place] [address] [place], [place] [phone] Social History Tobacco Use Types Packs/Day Years [...]
--- OUTSIDE RECORDS SUMMARY | 2025-01-14 19:18 | XMS_ITS | Encounter Summary ---
Author Organization [employer] Address [address] [place] [address] 7t [place] [address] Care Team Providers Care Casting Inspector Name Role Phone Name, Kiel BAILEY Primary Care Provider [phone] Katlyn Rodriguez PharmD Unavailable Nehal Ann RN Unavailable Unavailable Ania Spencer Unavailable Opal Carrasquillo Unavailable Ania Spencer Unavailable Ania Spencer Unavailable Reason for Visit * Reason Onset Date Comments Appointment Request 02/29/2024 Encounter Details Date Type Department Care Team (Late st Contact Info) Description 02/29/2024 Telephone [facility] 230 [place], [place] [phone] Name, MD Kiel [address] [place], [place] [phone] Appointment Request Social History Tobacco Use Types [...] speak georgian so you will need an bottling line operator. documented in this encounter Plan of Treatment Upcoming Encounters Date Type Department Care Team (Late st Contact Info) Description 02/04/2025 11:30 AM EST Clinical Support [facility] [address] [place] [address] Opal Steiner, RN 02/08/2025 9:30 AM EST Medication Management [facility] [address] [place] [address] Katlyn Rodriguez, PharmD [address] [place] [address] 03/13/2025 11:30 AM EST Telemedicine [facility] [place] [address] Name, MD Kiel Jai [place] 04/10/2025 10:45 AM EST Office Visit [facility] [place] [phone] Name, MD iKel Jai [place] documented as of this encounter Goals Goal [...] documented as of this encounter Care Teams Casting Inspector Relationship Specialty Start Date End Date Name, MD Kiel [facility] [place] [address] PCP - General Family Medicine 07/15/15 Puia, Katlyn, PharmD [facility]ai [facility] [place] [address] Pharmacist Internal Medicine 10/08/22 Nehal Ann, MARINA [address] [place] [address] Registered Nurse Family Medicine 08/20/24 10/29/24 Ania Spencer 08/20/24 11/26/24 Opal Carrasquillo Registered Nurse 10/29/24 11/26/24 Ania Spencer 12/14/24 12/26/24 Ania Spencer 01/09/25 Marta Ovalle Farm ContractorCustoms And Immigration Officer 05/25/23 documented as of this encounter
--- OUTSIDE RECORDS SUMMARY | 2025-01-14 19:18 | XMS_ITS | Encounter Summary ---
Author Organization [employer] Address [address] [facility] 7t [place] [address] Care Team Providers Care Delivery Nurse Name Role Phone Name, Kiel BAILEY Primary Care Provider [phone] Katlyn Rodriguez PharmD Unavailable [phone] Ania Spencer Unavailable Encounter Details Date Type Department Care Team (Late st Contact Info) Description 01/10/2025 Patient Outreach [facility] [address] [place] [address] Renetta Power, RN Social History Tobacco Use [...] as of this encounter Progress Notes * Renetta Power, RN - 01/10/2025 11:21 AM EST Transition of care notification received for a recent emergency room visit. The patient could benefit from a telehealth visit for [facility] ED Dx Bronchitis. A call was placed to the patient, no answer at this time, message left to contact Blue team Nurses for a AIDS NURSE telehealth visit. HUSSAIN flowsheet template completed: Yes Hospital Discharges and Admission for [facility] Type of Visit: Emergency Department Date of Admission/Visit: 01/08/25 Date of Discharge: 01/08/25 Facility: [facility] Diagnosis: BRONCHITIS Disposition: Discharged Home Follow-Up Actions Follow-Up Needed: Other (Pt has an appotinment with PCP on 01/10/25) Follow-Up Outcome: Left Voicemail Initial Contact Date: 01/10/25 Patient Contacted: Left voicemail Patient Status: N/A The full discharge summary is Is available under media scanned document Review Flowsheet [facility] Transition of Care Documentation Type of Visit Date of Admission/Visit Date of Discharge Facility Diagnosis Disposition 06/21/2024 9:28 AM Hospital Admission 06/18/2024 06/20/2024 [facility] Brain Lesion Discharged Home 08/02/2024 4:06 PM Hospital Admission 07/30/2024 08/02/2024 [facility] chronic SOPD Discharged Home 01/10/2025 11:00 AM Emergency Department 01/08/2025 01/08/2025 [facility] BRONCHITIS Discharged Home Recent Visits Date Type Provider Dept 12/24/24 Office Visit Victorino Graves MD [facility] 12/13/24 Office Visit Lorenzo Chavez MD [facility] 11/06/24 Office Visit Lorenzo Chavez MD [facility] 11/01/24 Office Visit Sarita Gonzalez MD [facility] 10/09/24 Office Visit Sarita Gnozalez MD [facility] 10/02/24 Office Visit Victorino Graves MD [facility] 09/05/24 Office Visit Sravanthi Robbins MD [facility] 09/03/24 Office Visit Sergio Alexander MD [facility] 08/20/24 Office Visit Kiel Shaffer MD [facility] 08/17/24 Office Visit Sarita Gonzalez MD [facility] Showing recent visits within past 365 days with a meds authorizing provider and meeting all other requirements Today's Visits Date Type Provider Dept 01/10/25 Office Visit Kiel Shaffer MD [facility] Showing today's visits with a meds authorizing provider and meeting all other requirements Future Appointments Date Type Provider Dept 02/08/25 Appointment Katlyn Rodriguez PharmD [facility] 03/13/25 Appointment Kiel Shaffer MD [facility] 04/10/25 Appointment Kiel Shaffer MD [facility] Showing future appointments within next 150 days with a meds authorizing provider and meeting all other requirements documented in this encounter Plan of Treatment Upcoming Encounters Date Type Department Care Team (Late st Contact Info) Description 02/04/2025 11:30 AM EST Clinical Support [address] [address] Opal Steiner, MARINA 02/08/2025 9:30 AM EST Medication Management [address] [address] Katlyn Rodriguez PharmD [address] [place] [address] 03/13/2025 11:30 AM EST Telemedicine [facility] [address] [place] [address] Name, MD Kiel [address] [place] [address] 04/10/2025 10:45 AM EST Office Visit [facility] [address] [place] [address] Name, MD Kiel [address] [place] [address] documented as of this encounter Goals Goal [...] blood pressure task No Noni Pierson, MARINA Weekly blood pressure task Care Plan Weekly blood pressure task No Noni Pierson, MARINA Patient has chronic kidney disease Care Plan Patient has chronic kidney disease No Noni Pierson, MARINA Patient has chronic kidney disease Care Plan Patient has chronic kidney disease No Noni Pierson, MARINA Weekly blood pressure task Care Plan [...] as of this encounter Care Teams Delivery Nurse Relationship Specialty Start Date End Date Name, MD Kiel [address] [place] [address] PCP - General Family Medicine 07/15/15 Katlyn Rodriguez PharmD [address] [place] [address] Pharmacist Internal Medicine 10/08/22 Ania Spencer 01/09/25 Marta Ovalle Wrapping Machine HelperZinc Plating Machine Operator 05/25/23 documented as of this encounter
--- OUTSIDE RECORDS SUMMARY | 2025-01-14 19:18 | XMS_ITS | Encounter Summary ---
Author Organization [employer] Address [address] [facility] 7t [place] [address] Care Team Providers Care Paver Name Role Phone Name, Kiel BAILEY Primary Care Provider [phone] Katlyn Rodriguez PharmD Unavailable [phone] Ania Spencer Unavailable Ania Spencer Unavailable Reason for Visit * Reason Comments Med Refill Encounter Details Date Type Department Care Team (Late st Contact Info) Description 12/07/2024 Refill [facility] [address] [place] [address] Name, MD Kiel [address] [place], [place] [phone] Cerebellar mass; Chronic intractable headache, unspecified headache [...] Description 02/04/2025 11:30 AM EST Clinical Support [address] [address] Opal Steiner RN 02/08/2025 9:30 AM EST Medication Management [address] [address] Katlyn Rodriguez, PharmD [address] [place] [address] 03/13/2025 11:30 AM EST Telemedicine [address] [address] Name, MD Kiel [address] [place] [address] 04/10/2025 10:45 AM EST Office Visit [address] [address] Name, MD Kiel [address] [place] [address] documented as of this encounter Goals Goal [...] documented as of this encounter Care Teams Paver Relationship Specialty Start Date End Date Name, MD Kiel [address] [place] [address] PCP - General Family Medicine 07/15/15 Puia, Katlyn, PharmD [address] [place] [address] Pharmacist Internal Medicine 10/08/22 Ania Spencer 12/14/24 12/26/24 Ania Spencer 01/09/25 Marta Ovalle Guest ServicesCeramist 05/25/23 documented as of this encounter
--- OUTSIDE RECORDS SUMMARY | 2025-01-14 19:18 | XMS_ITS | Encounter Summary ---
Author Organization [employer] Address [address] [place] [address] 7t [place] [address] Care Team Providers Care Construction Assistant Name Role Phone Name, Kiel BAILEY Primary Care Provider [phone] Katlyn Rodriguez PharmD Unavailable Nehal Ann RN Unavailable Unavailable Ania Spencer Unavailable Opal Carrasquillo Unavailable Ania Spencer Unavailable Ania Spencer Unavailable Encounter Details Date Type Department Care Team (Late st Contact Info) Description 07/01/2022 Abstract [facility] [address] [place], [place] [phone] Name, MD Kiel [address] [place], [place] [phone] Social History Tobacco Use Types Packs/Day Years [...] 02/04/2025 11:30 AM EST Clinical Support [address] [address] Opal Steiner RN 02/08/2025 9:30 AM EST Medication Management [address] [phone] Katlyn Rodriguez PharmD [address] [place] [address] 03/13/2025 11:30 AM EST Telemedicine [address] [phone] NameKiel MD [address] [place] [address] 04/10/2025 10:45 AM EST Office Visit [address] [phone] Name, MD Kiel [address] [place] [address] documented as of this encounter Visit Diagnoses Not on filedocumented in this encounter Care Teams Construction Assistant Relationship Specialty Start Date End Date Name, MD Kiel [address] [place] [address] PCP - General Family Medicine 07/15/15 Katlyn Rodriguez, PharmD [address] [place] [address] Pharmacist Internal Medicine 10/08/22 Nehal Ann, MARINA [address] [place] [address] Registered Nurse Family Medicine 08/20/24 10/29/24 Ania Spencer 08/20/24 11/26/24 Opal Carrasquillo Registered Nurse 10/29/24 11/26/24 Ania Spencer 12/14/24 12/26/24 Ania Spencer 01/09/25 Marta Ovalle It Solutions ArchitectTail Edger 05/25/23 documented as of this encounter
--- OUTSIDE RECORDS SUMMARY | 2025-01-14 19:18 | XMS_ITS | Encounter Summary ---
Author Organization [employer] Address 75 [facility] 7t [place] [address] Care Team Providers Care Associate Director Finance Name Role Phone Name, Kiel BAILEY Primary Care Provider [phone] Katlyn Rodriguez PharmD Unavailable [phone] Nehal Ann RN Unavailable Unavailable Ania Spencer Unavailable Opal Carrasquillo Unavailable [phone] Ania Spencer Unavailable Ania Spencer Unavailable Reason for Visit * Reason Comments Med Refill Encounter Details Date Type Department Care Team (Late st Contact Info) Description 06/08/[address] [facility] [address] [place], [place] [phone] Name, MD Kiel [address] [place] [address] Chronic pain syndrome Social History Tobacco Use [...] Description 02/04/2025 11:30 AM EST Clinical Support [address] [address] Opal Steiner RN 02/08/2025 9:30 AM EST Medication Management [address] [address] Katlyn Rodriguez, PharmD [address] [place] [address] 03/13/2025 11:30 AM EST Telemedicine [address] [address] Name, MD Kiel [address] [place] [address] 04/10/2025 10:45 AM EST Office Visit [address] [address] Name, MD Kiel [address] [place] [address] documented as of this encounter Goals Goal [...] as of this encounter Care Teams Associate Director Finance Relationship Specialty Start Date End Date Name, MD Kiel [address] [place] [address] PCP - General Family Medicine 07/15/15 Puia, Katlyn, PharmD [address] [place] [address] Pharmacist Internal Medicine 10/08/22 Nehal Ann, MARINA [address] [place] [address] Registered Nurse Family Medicine 08/20/24 10/29/24 Ania Spencer 08/20/24 11/26/24 Opal Carrasquillo Registered Nurse 10/29/24 11/26/24 Ania Spencer 12/14/24 12/26/24 Ania Spencer 01/09/25 Marta Ovalle Component Lab TechGas Turbine Assembler 05/25/23 documented as of this encounter
--- OUTSIDE RECORDS SUMMARY | 2025-01-14 19:18 | XMS_ITS | Encounter Summary ---
Author Organization [facility] Address [address] [facility] [address] [place] [address] Phone Care Team Providers Care Second Officer Name Role Phone Unavailable Primary Care Provider Unavailabl e Encounter Details Date Type Department Care Team (Latest Contact Info) Description 01/04/2020 Ancillary Orders [facility] [address] [place] [address] [place] [address] Bright Jesus, DO [address] [place] [address] Chest pain, unspecified type Social History Tobacco [...]
--- OUTSIDE RECORDS SUMMARY | 2025-01-14 19:18 | XMS_ITS | Encounter Summary ---
Author Organization [employer] Address [address] [place] [address] 7t [place] [address] Care Team Providers Care Cephalometric Analyst Name Role Phone Name, Kiel BAILEY Primary Care Provider [phone] Katlyn Rodriguez PharmD Unavailable Nehal Ann RN Unavailable Unavailable Ania Spencer Unavailable Opal Carrasquillo Unavailable Ania Spencer Unavailable Ania Spencer Unavailable Reason for Visit * Reason Onset Date Comments FYI 08/03/2024 Encounter Details Date Type Department Care Team (Late st Contact Info) Description 08/03/2024 Telephone [facility] MED[facility]INE [address] [place], [place] [phone] Name, MD Kiel [address] [place], [place] [phone] FY Social History Tobacco Use Types Packs/Day [...] - 08/03/2024 2:00 PM EDT Tc from [facility] with N stating pt has an upcoming appointment with pcp and would like to report: 1) Pt was discharged yesterday 08/02. Reason: COPD. 2) F/u Left ear symptoms. Pt unable to hear. 3) F/u pull up prescription. Any questions contact [facility] [phone] documented in this encounter Plan of Treatment Upcoming Encounters Date Type Department Care Team (Late st Contact Info) Description 02/04/2025 11:30 AM EST Clinical Support [address] [address] Opal Steiner RN 02/08/2025 9:30 AM EST Medication Management [address] [address] Puia, Katlyn, PharmD [address] [place] [address] 03/13/2025 11:30 AM EST Telemedicine [address] [address] Kiel Shaffer MD [address] [place] [address] 04/10/2025 10:45 AM EST Office Visit [address] [phone] Name, MD Kiel [address] [place] [address] documented as of this encounter Goals Goal [...] documented as of this encounter Care Teams Cephalometric Analyst Relationship Specialty Start Date End Date NameKiel MD [address] [place] [address] PCP - General Family Medicine 07/15/15 Katlyn Rodriguez, AngieD 230 [place], [place] [phone] Pharmacist Internal Medicine 10/08/22 Nehal Ann, MARINA [address] [place] [address] Registered Nurse Family Medicine 08/20/24 10/29/24 Ania Spencer 08/20/24 11/26/24 Opal Carrasquillo Registered Nurse 10/29/24 11/26/24 Ania Spencer 12/14/24 12/26/24 Ania Spencer 01/09/25 Marta Ovalle Liquid CompounderAdministrative Hearing Officer 05/25/23 documented as of this encounter
--- OUTSIDE RECORDS SUMMARY | 2025-01-14 19:18 | XMS_ITS | Encounter Summary ---
Author Organization [employer] Address [address] [place] [address] 7[place] [address] Care Team Providers Care Cotton Opener Name Role Phone Name, Kiel BAILEY Primary Care Provider [phone] Katlyn Rodriguez PharmD Unavailable [phone] Nehal Ann RN Unavailable Unavailable Ania Spencer Unavailable Opal Carrasquillo Unavailable Ania Spencer Unavailable Ania Spencer Unavailable Reason for Referral * Consultation (Routine) - Closed Specialty Diagnoses / Procedures Referred By Carroll hoover Referred To Contact Occupational Therapy Diagnoses Left arm weakness Lizzie Alfaro NP [address] [place] [address] Phone: tel: fax: [facility] Physical Therapy [address] [place] [address] Phone: tel: fax: Referral ID Status Reason Start Date Expiration Date V isits Requested Visits Authorized [id number] Closed Specialty Services Required 09/06/2024 09/06/2025 20 20 Encounter Details Date Type Department Care Team ([facility] st Contact Info) Description 09/06/2024 Orders Only [facility] MED[facility]INE [address] [place] [address] Lizzie Alfaro NP [address] [place] [address] Left arm weakness (Primary Dx) Social History [...] ([facility] st Contact Info) Description 02/04/2025 11:30 AM EST Clinical Support [address] [address] Opal Steiner RN 02/08/2025 9:30 AM EST Medication Management [address] [address] PuKatlyn albert, PharmD [address] [place] [address] 03/13/2025 11:30 AM EST Telemedicine [address] [address] NameKiel MD [address] [place] [address] 04/10/2025 10:45 AM EST Office Visit [address] [address] Kiel Shaffer MD [address] [place] [address] Scheduled Referrals Name Type Priority Associated Diagnoses [...] documented as of this encounter Care Teams Cotton Opener Relationship Specialty Start Date End Date Kiel Shaffer MD [address] [place] [address] PCP - General Family Medicine 07/15/15 Puia, Katlyn, PharmD 230 [place] [address] Pharmacist Internal Medicine 10/08/22 Nehal Ann, RN [address] [place] [address] Registered Nurse Family Medicine 08/20/24 10/29/24 Ania Spencer 08/20/24 11/26/24 Opal Carrasquillo Registered Nurse 10/29/24 11/26/24 Ania Spencer 12/14/24 12/26/24 Ania Spencer 01/09/25 Marta Ovalle Instructional Technology InstructorEvent Staff 05/25/23 documented as of this encounter
--- OUTSIDE RECORDS SUMMARY | 2025-01-14 19:18 | XMS_ITS | Encounter Summary ---
Author Organization [employer] Address [address] [place] [address] 7t [place] [address] Care Team Providers Care Annual Greenhouse Manager Name Role Phone Name, Kiel BAILEY Primary Care Provider Katlyn Rodriguez PharmD Unavailable [phone] Nehal Ann RN Unavailable Unavailable Ania Spencer Unavailable Opal Carrasquillo Unavailable Ania Spencer Unavailable Ania Spencer Unavailable Reason for Visit * Reason Comments Med Refill Encounter Details Date Type Department Care Team (Late st Contact Info) Description 07/02/2022 Refill [facility] MEDICINE [address] [place], [place] [phone] Name, MD Kiel [address] [place], [place] [phone] Chronic pain syndrome Social History Tobacco Use [...] Description 02/04/2025 11:30 AM EST Clinical Support [address] [address] Opal Steiner RN 02/08/2025 9:30 AM EST Medication Management [address] [address] Katlyn Rodriguez, PharmD [address] [place] [address] 03/13/2025 11:30 AM EST Telemedicine [address] [place] [address] Name, MD Kiel [address] [place] [address] 04/10/2025 10:45 AM EST Office Visit [address] [place] [address] Name, MD Kiel [address] [place] [address] documented as of this encounter Visit Diagnoses Diagnosis Chronic pain syndrome documented in this encounter Care Teams Annual Greenhouse Manager Relationship Specialty Start Date End Date Name, MD Kiel [address] [place] [address] PCP - General Family Medicine 07/15/15 Katlyn Rodriguez, PharmD [address] [place] [address] Pharmacist Internal Medicine 10/08/22 Nehal Ann, MARINA [address] [place] [address] Registered Nurse Family Medicine 08/20/24 10/29/24 Ania Spencer 08/20/24 11/26/24 Opal Carrasquillo Registered Nurse 10/29/24 11/26/24 Ania Spencer 12/14/24 12/26/24 Ania Spencer 01/09/25 Marta Ovalle Industrial Organizational PsychologistPipeline Integrity Engineer 05/25/23 documented as of this encounter
--- OUTSIDE RECORDS SUMMARY | 2025-01-14 19:18 | XMS_ITS | Clinical Summary ---
Author Organization [facility] Address [address] [place] [address] [place] [address] Phone Care Team Providers Care Auto Rebuilder Name Role Phone Unavailable Primary Care Provider [...] Devices Not on file Insurance [employer] [address] [place] [address] [place] [address] [place] [address] [place] [address] [place] [address] [place] [address] [place] [address] [employer] Additional Source Comments The information contained in this document represents components of the legal health record. It is not the complete legal health record.[facility]
--- OUTSIDE RECORDS SUMMARY | 2025-01-14 19:18 | XMS_ITS | Encounter Summary ---
Author Organization [employer] Address [address] [place] [address] 7t [place] [address] Care Team Providers Care Roll Carrier Name Role Phone Name, Kiel BAILEY Primary Care Provider Katlyn Rodriguez PharmD Unavailable Nehal Ann RN Unavailable Unavailable Ania Spencer Unavailable Opal Carrasquillo Unavailable [phone] Ania Spencer Unavailable Ania Spencer Unavailable Reason for Visit * Reason Comments Med Refill Encounter Details Date Type Department Care Team (Late st Contact Info) Description 06/28/2022 Refill [facility] [address] [place], [place] [phone] Name, MD Kiel [address] [place], [place] [phone] Chronic pain syndrome Social History Tobacco Use [...] 02/04/2025 11:30 AM EST Clinical Support [address] [address] Opal Steiner RN 02/08/2025 9:30 AM EST Medication Management [address] [address] Katlyn Rodriguez, PharmD [address] [place] [address] 03/13/2025 11:30 AM EST Telemedicine [address] [place] [address] Name, MD Kiel [address] [place] [address] 04/10/2025 10:45 AM EST Office Visit [address] [place] [address] Name, MD Kiel [address] [place] [address] documented as of this encounter Visit Diagnoses Diagnosis Chronic pain syndrome documented in this encounter Care Teams Roll Carrier Relationship Specialty Start Date End Date Name, MD Kiel [address] [place] [address] PCP - General Family Medicine 07/15/15 Katlyn Rodriguez, PharmD [address] [place] [address] Pharmacist Internal Medicine 10/08/22 Nehal Ann, MARINA [address] [place] [address] Registered Nurse Family Medicine 08/20/24 10/29/24 Ania Spencer 08/20/24 11/26/24 Opal Carrasquillo Registered Nurse 10/29/24 11/26/24 Ania Spencer 12/14/24 12/26/24 Ania Spencer 01/09/25 Marta Ovalle Acquisition EditorMetal Dresser 05/25/23 documented as of this encounter
--- OUTSIDE RECORDS SUMMARY | 2025-01-14 19:18 | XMS_ITS | Encounter Summary ---
Author Organization [employer] Address [address] [place] [address] 7t [place] [address] Care Team Providers Care Commercial Real Estate Paralegal Name Role Phone Name, Kiel BAILEY Primary Care Provider [phone] Katlyn Rodriguez PharmD Unavailable Nehal Ann RN Unavailable Unavailable Ania Spencer Unavailable Opal Carrasquillo Unavailable Ania Spencer Unavailable Ania Spencer Unavailable Reason for Visit * Reason Comments Med Refill Encounter Details Date Type Department Care Team (Late st Contact Info) Description 07/16/2022 Refill [facility] MED[facility]INE 230 [place], [place] [phone] Name, MD Kiel [address] [place], [place] [phone] Chronic pain syndrome Social History Tobacco Use [...] Description 02/04/2025 11:30 AM EST Clinical Support [address] [address] Opal Steiner RN 02/08/2025 9:30 AM EST Medication Management [address] [address] Katlyn Rodriguez PharmD [address] [place] [address] 03/13/2025 11:30 AM EST Telemedicine [address] [address] NameKiel MD [address] [place] [address] 04/10/2025 10:45 AM EST Office Visit [address] [address] NameKiel MD [address] [place] [address] documented as of this encounter Visit Diagnoses Diagnosis Chronic pain syndrome documented in this encounter Additional Health Concerns Assessment Noted Time PHQ-9 Depression Total Score: 7 07/15/19 23 2:39 PM EDT documented as of this encounter Care Teams Commercial Real Estate Paralegal Relationship Specialty Start Date End Date Name, MD Kile [address] [place] [address] PCP - General Family Medicine 07/15/15 Katlyn Rodriguez PharmD [address] [place] [address] Pharmacist Internal Medicine 10/08/22 Nehal Ann, RN [address] [place] [address] Registered Nurse Family Medicine 08/20/24 10/29/24 Ania Spencer 08/20/24 11/26/24 Opal Carrasquillo Registered Nurse 10/29/24 11/26/24 Ania Spencer 12/14/24 12/26/24 Ania Spencer 01/09/25 Marta Ovalle Welding Machine Operator Plasma ArcMachine Stone Polisher Apprentice 05/25/23 documented as of this encounter
== END 2025-01-14 15:13 | disposition home or self-care (01) ==
LOC: HO.HSM 14:23
PROVIDERS: PCP Internal Medicine Geriatric Medicine; Visit Provider Psychiatry & Neurology Neurology
DX: G81.94 Hemiplegia, unspecified affecting left nondominant side (principal)
CPT/HCPCS: 99213

== ENCOUNTER → 2025-01-14 14:22 | Outpatient (BNVA) | payer MEDICAID, SELFPAY | PROVIDERS: PCP Internal Medicine Geriatric Medicine; Visit Provider Psychiatry & Neurology Neurology | DX: G81.94 Hemiplegia, unspecified affecting left nondominant side (principal); G31.84 Mild cognitive impairment of uncertain or unknown etiology | CPT/HCPCS: 99212 ==

== ENCOUNTER 2025-01-29 19:01 | Emergency (ER) | payer MEDICAID, SELFPAY ==
--- OUTSIDE RECORDS SUMMARY | 2023-11-24 08:53 | XMS_ITS | Encounter Summary ---
Author Organization [facility] Address [id number] [place] [phone] Care Team Providers Care Rail Signal Worker Name Role Phone Name, Kiel BAILEY Primary Care Provider [phone] Encounter Details Date Type Department Care Team (Late st Contact Info) Description 11/24/2023 9:53 AM EDT Hospital Encounter TH HISTORIC ENCOUNTERS EASTERN CONVERSION ONLY Geoffrey-Art Vitale MD [address] [place] [phone] Social History Tobacco Use Types Packs/Day [...] 02/05/2024 6:47 AM Rosy New RN * [place] Suicide Severity Rating Scale (Screener/Recent Self-Report) Question [...] 2:17 PM Encounter Date: 11/24/2023 Status: Signed Green House Manager: Art Davis MD (Physician) CHIEF COMPLAINT: Chief Complaint Patient presents with ? Follow-up Diffuse large B-cell lymphoma Stage III Completed 6 cycles of R-CHOP in July 23, 2018 IDENTIFIER:Sarita Puga is a 58 y.o. female. HPI: The patient returns for follow up of Large B-cell lymphoma. Here with her daughter , who is portuguese to citizen of [place] russian language instructor Patient reports that she has been doing [...] accompanied by her daughter and girlfriend. As Moroccan to Azeri russian language instructor assisted with the discussion. She had a [...] Units under the skin 3 (three) times a day with meals., Disp: , Rfl: ? metFORMIN [...] Team (Late st Contact Info) Description 01/31/2025 2:15 PM EST Office Visit Orthopedic Surgery - [place] [address] [phone] Wesley Garcia DPPhani [address] [phone] documented as of this encounter Procedures Procedure [...] documented as of this encounter Care Teams Rail Signal Worker Relationship Specialty Start Date End Date Name, MD Kiel 4 [place], [place] PCP - General Internal Medicine 08/28/15 documented as of this encounter
--- OUTSIDE RECORDS SUMMARY | 2023-11-24 09:30 | XMS_ITS | Encounter Summary ---
Author Organization [facility] Address [address] [place] [phone] Care Team Providers Care Microelectronics Engineer Name Role Phone Name, Kiel BAILEY Primary Care Provider [phone] Encounter Details Date Type Department Care Team (Late st Contact Info) Description 11/24/2023 10:30 AM EDT Hospital Encounter TH HISTORIC ENCOUNTERS EASTERN CONVERSION ONLY Geoffrey-Art Vitale MD [address] [place] [phone] Social History Tobacco Use Types Packs/Day [...] on file documented as of this encounter Functional Status * Calculated C-SSRS Risk Score (Lifetime/Recent) Answer Date of Assessment Author No Risk Indicated 02/05/2024 6:47 AM Rosy New RN * [place] Suicide Severity Rating Scale (Screener/Recent Self-Report) Question Answer Date of Assessment Author 1. Wish to be (Past 1 Month) No 024 6:47 AM Rosy New, MARINA 2. Non-Specific Active Suici rex Thoughts (Past 1 Month) No 02/05/2024 6:47 AM EST Gambino, Boom a, RN 6. Suicidal Behavior (Lifetime) No 6:47 AM Rosy New, RN documented as of this encounter Plan of Treatment Upcoming Encounters Date Type Department Care Team (Late st Contact Info) Description 01/31/2025 2:15 PM EST Office Visit Orthopedic Surgery - [place] [address] [phone] Wesley Garcia DPM [address] [phone] documented as of this encounter Visit Diagnoses Not on filedocumented in this encounter Additional Health Concerns Infection Onset Date Last Indicated Resolved Time Respiratory Rule-Out 02/05/2024 02/05/2024 024 8:09 AM EST COVID-19 Rule-Out 02/05/2024 02/05/2024 02/05/2024 8:09 AM EST documented as of this encounter Care Teams Microelectronics Engineer Relationship Specialty Start Date End Date Name, MD Kiel 4 [place], [place] PCP - General Internal Medicine 08/28/15 documented as of this encounter
--- NOTE | ~2025-01-29 | CT_ITS ---
CLINICAL HISTORY: fall, weakness CT head without contrast Comparison: 08/17/2024 Findings: No acute intracranial fluid collection or hematoma. Mild chronic white matter disease with volume loss. No acute process in sinuses or mastoids. No acute bony abnormality. Impression: No acute intracranial process This document has been electronically signed by: Luis Nguyen MD on 01/29/2025 21:28:38
--- NOTE | ~2025-01-29 | CT_ITS ---
CLINICAL HISTORY: Fall CT abdomen and pelvis without contrast Comparison: 04/06/2024 Findings: Lung bases clear. No acute bony abnormality. Liver and spleen within normal limits. Pancreas and adrenal glands unremarkable. Gallbladder within normal limits. Small right renal artery calcified aneurysm. Small nonobstructing left renal stone. No significant renal abnormality identified. No evidence for aortic aneurysm. No free fluid or adenopathy in the pelvis. No diverticulitis. Appendix unremarkable. Hysterectomy. No adnexal abnormality. Impression: No acute processes This document has been electronically signed by: Luis Nguyen MD on 01/29/2025 21:24:22
--- NOTE | ~2025-01-29 | CT_ITS ---
CLINICAL HISTORY: Fall CT cervical spine without contrast Comparison: 08/02/2024 Findings: Study considerably limited by body habitus. Motion artifact also limits assessment. C7 level not included on this study. No definite fracture is identified. Recommend repeat study when patient can cooperate. Moderate degenerative change. No radiopaque foreign bodies. Impression: Very limited study as above No acute process identified Recommend repeat study This document has been electronically signed by: Luis Nguyen MD on 01/29/2025 21:21:07
--- NOTE | ~2025-01-29 | CT_ITS ---
CLINICAL HISTORY: Fall CT chest without contrast Comparison: 04/06/2024 Findings: Lung knight are clear without acute infiltrates. No significant mediastinal adenopathy. No significant free pleural fluid. No significant focal bony abnormalities. Impression: No acute processes This document has been electronically signed by: Luis Nguyen MD on 01/29/2025 21:31:28
[2025-01-29 19:10] VITALS: BP 130/82; PULSE 76; RESP 16; TEMP 36.8; O2SAT 98; BMI 41.8
--- NOTE | 2025-01-29 19:17 | ECG_ITS ---
Test Reason : WEAKNESS Blood Pressure : */* mmHG Vent. Rate : 75 BPM Atrial Rate : 75 BPM P-R Int : 148 ms QRS Dur : 92 ms QT Int : 378 ms P-R-T Axes : 19 -14 -6 degrees QTcB Int : 422 ms Normal sinus rhythm Moderate voltage criteria for LVH, may be normal variant ( R in aVL , [place] product ) Borderline ECG When compared with ECG of 08-Jan-2025 15:22, No significant change was found Referred By: Brown Blair Electronically Signed By: ADONAY STEWART MD
--- NOTE | 2025-01-29 19:19 | ED.GENADULT ---
HPI - General Adult General Chief complaint: Fall Stated complaint: multiple falls Time Seen by Provider: 01/30/25 04:05 Source: patient, family, old records reviewed and physical security engineer Mode of arrival: wheelchair Limitations: no limitations History of Present Illness ED Provider: TAMMIE GRAYSON narrative: This is a 59-year-old female with past medical history of diabetes, strokes back in November resulting in recurrent falls due to left-sided hemiparesis, GERD, hypertension, she is here with her daughter who reports she has fallen over the last 2 days but no head strike or LOC. She landed on her back. The daughter states that they have help at home and that she has staff reporter. She is due to start physical therapy she is not on blood thinners. They do not any want any further assistance or rehab at home. The patient reports no prolonged downtime. She has no other symptoms. This has been occurring since her stroke in November. Daughter notes patient either takes [id number]-sylhpzm medications and she has a prescription for oxycodone at home for worsening pain but did not take any. MD complaint: falls Onset (ago): day(s) (2) Location: neck and back Radiation: non-radiation Severity: moderate Quality: aching Pain Consistency: constant Relieving factors: none Exacerbating factors: movement Associated symptoms: denies other symptoms Treatments prior to arrival: none Related Data Home Medications ?Medication ?Instructions ?Recorded ?Confirmed montelukast 10 mg tablet 10 mg PO BEDTIME 02/13/20 10/03/24 (Singulair) paroxetine HCl 40 mg tablet 40 mg PO BEDTIME 12/05/20 10/03/24 pen needle, diabetic 32 gauge x #50 ea 12/05/20 10/03/24 (Pentips Pen Needle) insulin glargine 100 unit/mL (3 36 unit subcut DAILY 05/26/21 10/03/24 mL) subcutaneous pen (Lantus Solostar U-100 Insulin) gabapentin 600 mg tablet 600 mg PO TID PRN Pain 04/21/22 10/03/24 lidocaine 5 % topical patch 1 patch topical DAILY PRN Pain 04/21/22 10/03/24 metoprolol succinate 25 mg 25 mg PO BEDTIME 04/21/22 10/03/24 tablet,extended release 24 hr oxcarbazepine 300 mg tablet 450 mg PO BEDTIME 04/21/22 10/03/24 clonidine HCl 0.1 mg tablet 0.1 mg PO BEDTIME 07/08/22 10/03/24 atorvastatin 80 mg tablet 80 mg PO BEDTIME 01/05/23 10/03/24 metformin 500 mg tablet,extended 500 mg PO BEDTIME 01/05/23 10/03/24 release 24 hr acetaminophen 650 mg 650 mg PO Q8H PRN Mild Pain (Scale 06/18/24 10/03/24 tablet,extended release Score 1-4) albuterol sulfate 2.5 mg/3 mL 2.5 mg inhalation Q4H PRN 06/18/24 10/03/24 (0.083 %) solution for nebulization shortness of breath or wheezing albuterol sulfate 90 mcg/actuation 2 puff inhalation Q4H PRN wheezing 06/18/24 10/03/24 aerosol inhaler (Ventolin HFA) baclofen 10 mg tablet 10 mg PO TID PRN muscle spasm 06/18/24 10/03/24 calcium 600 mg (as 1 tab PO BID 06/18/24 10/03/24 carbonate)-vitamin D3 5 mcg (200 unit) tablet cetirizine 10 mg tablet (Zyrtec) 10 mg PO DAILY 06/18/24 10/03/24 ezetimibe 10 mg tablet 10 mg PO DAILY 06/18/24 10/03/24 famotidine 20 mg tablet 20 mg PO BID 06/18/24 10/03/24 furosemide 20 mg tablet 20 mg PO DAILY 06/18/24 10/03/24 icosapent ethyl 1 gram capsule 2 g PO BID 06/18/24 10/03/24 losartan 50 mg tablet 50 mg PO DAILY 06/18/24 10/03/24 meloxicam 7.5 mg tablet 7.5 mg PO DAILY 06/18/24 10/03/24 oxcarbazepine 150 mg tablet 150 mg PO DAILY 06/18/24 10/03/24 tirzepatide 15 mg/0.5 mL 15 mg subcut FR 06/18/24 10/03/24 subcutaneous pen injector (Lurdes) trazodone 100 mg tablet 100 mg PO BEDTIME PRN insomnia 06/18/24 10/03/24 Previous Rx's ?Medication ?Instructions ?Recorded oxycodone 10 mg tablet 10 mg PO DAILY PRN headache #30 06/20/24 tabs fluticasone propionate 115 2 puff inhalation Q12H ASTHMA/COPD 09/12/24 mcg-salmeterol 21 mcg/actuation 30 days #12 grams HFA inhaler (Advair HFA) ibuprofen 600 mg tablet 600 mg PO Q6H PRN pain #12 tabs 10/06/24 pyridoxine (vitamin B6) 100 mg 100 mg PO DAILY 90 days #90 tabs 11/12/24 tablet ipratropium 20 mcg-albuterol 100 1 puff PO Q6H #4 grams 11/21/24 mcg/actuation mist for inhalation (Combivent Respimat) methocarbamol 750 mg tablet 750 mg PO BEDTIME #7 tabs 12/25/24 azithromycin 250 mg tablet See Rx Instructions PO .COMPLEX #6 01/08/25 (Zithromax Z-Wilmer) tabs prednisone 20 mg tablet 60 mg (3 x 20 mg) PO DAILY 5 days 01/08/25 #15 tabs lorazepam 2 mg tablet 2 mg PO DAILY PRN anxiety #1 tab 01/14/25 Allergies Allergy/AdvReac Type Severity Reaction Status Date / Time penicillin G (Penicillin G) Allergy Mild SWELLING Verified 01/29/25 19:17 barium sulfate (ORAL Allergy Unknown HIVES Verified 01/29/25 19:17 CONTRAST) cephalexin Allergy Unknown Unknown Verified 01/29/25 19:17 Review of Systems Review of Systems: Yes all other systems are reviewed and are negative PMFSH Past Medical History Attestation statement: The following information was validated with the patient. Source: old records reviewed Medical History COPD (chronic obstructive pulmonary disease) Diabetes mellitus Brain lesion Reactive airway disease Coronary artery disease Insulin dependent type 2 diabetes mellitus Exposure to rabies Lymphoma Restrictive lung disease secondary to obesity Nocturnal hypoxemia DRE (obstructive sleep apnea) Cough Nicotine dependence, cigarettes, uncomplicated Allergic rhinitis Morbid obesity Hyperlipidemia GERD (gastroesophageal reflux disease) Tubular adenoma Chronic idiopathic constipation IBS (irritable bowel syndrome) Back pain Depression Surgical History History of total right knee replacement (TKR) History of appendectomy (~1978) History of (~1986) History of hysterectomy (~1995) History of lithotripsy (~2018) History of carpal tunnel surgery of right wrist (~2020) History of colonoscopy History of esophagogastroduodenoscopy (EGD) Family History Family History Mother Diabetes Heart muscle disorder caused by another medical condition Father Diabetes Epilepsy Sister No problems noted. Sister No problems noted. Sister No problems noted. Sister No problems noted. Sister No problems noted. Brother No problems noted. Brother No problems noted. Brother No problems noted. Brother No problems noted. Brother No problems noted. Brother No problems noted. Daughter No problems noted. Daughter No problems noted. Son No problems noted. Son No problems noted. Son No problems noted. Social History Social History Household Members: Other Household Members Other:: grandson Housing: Apartment Are you a primary child care aide to a significant other at home: No Do you presently have visiting nurse or other home services: No Alcohol intake: current Alcohol intake frequency: does not drink Patient Tobacco Use Status: Current everyday Tobacco user Tobacco use type: Cigarette Cigarette Packs Per Day: 2 Cigarettes Per Day: 40.0 Years Smoked: (onset 13yo, x 42yrs, max 2ppd, now 1/2ppd - 30PYH) e-Cigarette/Vaping Use: Never Used Second Hand Smoke Exposure: No Substance Use Type: Marijuana Advance Directives: No Advance Directives Information Provided: Yes service: No Current occupational status: disabled Current occupation: rt handed Physical Exam ED Vital Signs: Vital Signs - 24 hr 01/29/25 19:10 01/29/25 21:02 01/29/25 22:41 Temperature 98.3 F 98.3 F 97.6 F Pulse Rate 76 64 72 Respiratory Rate 16 16 18 Blood Pressure 130/82 128/66 Pulse Oximetry 98 97 98 Oxygen Delivery Method Room Air Room Air Room Air 01/30/25 05:12 01/30/25 05:14 Temperature 97.6 F 97.6 F Pulse Rate 65 65 Respiratory Rate 18 18 Blood Pressure 117/91 H 117/91 H Pulse Oximetry 98 98 Oxygen Delivery Method Room Air Room Air BMI result Body Mass Index 41.8 Appearance: Alert. Oriented X3. No acute distress. Eyes: Pupils equal, round and reactive to light. ENT: Pharynx normal. Atraumatic Neck: Normal inspection. Neck supple. CVS: Normal heart rate and rhythm. Pulses normal. Respiratory: No respiratory distress. Breath sounds normal. Abdomen: Soft and nontender. Skin: Skin warm and dry. Normal skin color. Normal skin turgor. Extremities: No lower extremity edema. No calf ttp Neuro: Oriented X 3. No new deficits but she has noted left-sided hemiparesis. Course Course Course Narrative: RME: 59-year-old female history of left-sided stroke with chronic left-sided weakness presents to ED for multiple falls since yesterday due to dizziness and feeling weak. Patient states no new weakness. No new neuro deficits on exam. Labs EKG images ordered Medications Administered Discontinued Medications Generic Name Dose Route Start Last Admin Trade Name Freq PRN Reason Stop Dose Admin Acetaminophen 650 mg 01/29/25 22:42 01/29/25 22:45 Acetaminophen 325 Mg Tablet PO 01/29/25 22:43 650 mg ONCE ONE Administration Oxycodone HCl 5 mg 01/30/25 04:24 01/30/25 04:56 Oxycodone Hcl Immed Release 5 Mg Tablet PO 01/30/25 04:25 5 mg ONCE ONE Administration Medical Decision Making Medical Decision Making [facility] Narrative: This is a 59-year-old female with past medical history of diabetes, strokes back in November resulting in recurrent falls due to left-sided hemiparesis, GERD, hypertension, she has had recurrent falls since November. I asked the family if they need further services or there worried about her safety at home the daughter declines and states they have enough help. They came in due to fall on her checked out to make sure that no injury occurred. Patient denies any preceding symptoms, states that this she has gait instability at baseline since November. No chest pain or shortness of breath reported. I am going to obtain trauma imaging given her age and recurrent falls as well as some basic labs to make sure she is not anemic or dehydrated. She has no new neuro deficits. Differential Diagnosis Differential Diagnoses: The differential diagnosis associated with the presentation includes Compression fracture, recurrent falls, dehydration, MEDARDO, anemia Admission/Observation Consideration of admission/observation: Escalation of care including admission/observation considered They decline any further help at home or short-term rehab Lab Data [facility] Lab Attestation statement: I reviewed the patient's lab results. 01/29/25 20:05 01/29/25 20:05 Labs: Lab Results 01/29/25 01/29/25 Range/Units 20:05 21:27 WBC 6.2 (4.8-10.8) X10*3/uL RBC 4.46 (4.20-5.50) X10*6/uL Hgb 12.1 (12.0-16.0) g/dl Hct 37.3 (37.0-47.0) % MCV 83.6 (80.0-98.0) fL MCH 27.1 (27.0-33.0) pg MCHC 32.4 (31.0-35.0) g/dl RDW 12.9 (11.0-16.0) % Plt Count 135 L (160-400) X10*3/uL MPV 11.9 (9.4-12.3) fL Immature Gran % (Auto) 0.2 (0.0-0.4) % Neut % (Auto) 54.8 (45-73) % Lymph % (Auto) 36.1 (20-40) % [place] % (Auto) 6.1 (2-11) % Eos % (Auto) 1.8 (0-4) % Baso % (Auto) 1.0 (0-2) % Lymph # (Auto) 2.2 (1.2-4.9) X10*3/uL [place] # (Auto) 0.4 (0.1-1.2) X10*3/uL Eos # (Auto) 0.1 (0.0-0.4) X10*3/uL Baso # (Auto) 0.1 (0.0-0.2) X10*3/uL Abs Immat Gran (auto) 0.01 (0.00-0.03) X10*3/uL Absolute Neuts (auto) 3.4 (2.0-8.3) x10*3/uL Absolute Nucleated RBC 0.000 (0.0-0.012) X10*3/uL Nucleated RBC % (auto) 0.0 (0.0-0.2) /100WBC Sodium 141 (135-145) mmol/L Potassium 3.8 (3.3-5.1) mmol/L Chloride 107 (96-108) mmol/L Carbon Dioxide 26 (22-29) mmol/L Anion Gap 12 (12-20) BUN 15 (9-16) mg/dL Creatinine 0.79 (0.5-1.4) mg/dL Estim Creat Clear Calc 89.8 Estimated GFR > 60 Random Glucose 154 H (60-115) mg/dL Calcium 9.1 (8.4-10.2) mg/dL Magnesium 1.9 (1.6-2.6) mg/dL Total Bilirubin 0.2 (0.0-1.0) mg/dL AST 13 (5-31) U/L ALT 21 (0-31) U/L Alkaline Phosphatase 73 (39-117) U/L Total Creatine Kinase 41 (26-140) U/L Total Protein 6.2 L (6.5-8.0) g/dL Albumin 3.9 (3.5-5.0) g/dL Urine Color Yellow Urine Appearance Clear Urine pH 6.5 (5.0-9.0) Ur Specific [place] 1.020 (1.005-1.025) Urine Protein Negative (Neg-Trace) mg/dL Urine Glucose (UA) Negative (Negative) mg/dL Urine Ketones Negative (Negative) mg/dL Urine Blood Negative (Negative) Urine Nitrite Negative (Negative) Ur Leukocyte Esterase Negative (Negative) Influenza Type A (PCR) NEGATIVE (Negative) Influenza Type B (PCR) NEGATIVE (Negative) RSV RNA Qual (PCR) NEGATIVE (Negative) SARS-CoV-2 RNA (RT-PCR) NEGATIVE (Negative) Independent Interpretation I performed an independent interpretation of an: EKG and CT Scan (Patient was alonso scanned and had no acute trauma report) Interpretation: Rate: 75 Rhythm: NSR [place]: left, LVH Normal P waves. Normal LEISA. Normal QRS complex. ST T wave : No ST-elevation, inverted T-wave in lead 3 qTC:450 prior studies: No acute ischemia The study has been interpreted contemporaneously by me. . Radiology Impression Discussion of test interpretation with radiology: I have reviewed the radiologist's reading. Independent Historian Clinical information obtained from an independent historian. History obtained from or confirmed by: Other (Daughter) External Record Review External record reviewed: Inpatient record and Outpatient record Discharge Plan Discharge Clinical Impression: Left hemiparesis, Tenderness of back, Recurrent falls Patient Disposition: Home, Self-Care Instructions: Musculoskeletal Pain (ED), Back Pain (ED) Additional Instructions: at this time your labs, urine, CT scans of head, chest, abdomen, neck are all normal there are no signs of trauma please continue to follow up with PACs, physical therapy at home, other resources to improve your balance Return for any worsening symptoms or concerns, rest and stay hydrated Prescriptions: No Action Advair HFA 115-21 mcg/actuation HFA aerosol inhaler 2 puff inhalation Q12H 30 Days Qty: 12 5RF Rx Instructions: administer with spacer pyridoxine (vitamin B6) 100 mg tablet 100 mg PO DAILY 90 Days Qty: 90 3RF Combivent Respimat 20-100 mcg/actuation mist 1 puff PO Q6H Qty: 4 3RF losartan 50 mg tablet 50 mg PO DAILY oxcarbazepine 150 mg tablet 150 mg PO DAILY calcium carbonate-vitamin D3 600 mg-5 mcg (200 unit) tablet 1 tab PO BID meloxicam 7.5 mg tablet 7.5 mg PO DAILY famotidine 20 mg tablet 20 mg PO BID trazodone 100 mg tablet 100 mg PO BEDTIME PRN (Reason: insomnia) baclofen 10 mg tablet 10 mg PO TID PRN (Reason: muscle spasm) furosemide 20 mg tablet 20 mg PO DAILY albuterol sulfate [Ventolin HFA] 90 mcg/actuation HFA aerosol inhaler 2 puff INHALATION Q4H PRN (Reason: wheezing) ezetimibe 10 mg tablet 10 mg PO DAILY icosapent ethyl 1 gram capsule 2 g PO BID Mounjaro 15 mg/0.5 mL pen injector 15 mg subcut FR acetaminophen 650 mg tablet extended release 650 mg PO Q8H PRN (Reason: Mild Pain (Scale Score 1-4)) albuterol sulfate 2.5 mg /3 mL (0.083 %) solution for nebulization 2.5 mg inhalation Q4H PRN (Reason: shortness of breath or wheezing) cetirizine [Zyrtec] 10 mg tablet 10 mg PO DAILY oxycodone 10 mg tablet 10 mg PO DAILY PRN (Reason: headache) Qty: 30 0RF Rx Instructions: Partial Fill upon patient request. ibuprofen 600 mg tablet 600 mg PO Q6H PRN (Reason: pain) Qty: 12 0RF methocarbamol 750 mg tablet 750 mg PO BEDTIME Qty: 7 0RF azithromycin [Zithromax Z-Wilmer] 250 mg tablet See Rx Instructions .ROUTE .COMPLEX Qty: 6 0RF Rx Instructions: For 250 mg dose pack: take 500 mg today (day 1), then 250 mg for 4 days (days 2-5) prednisone 20 mg tablet 60 mg PO DAILY 5 Days Qty: 15 0RF montelukast [Singulair] 10 mg tablet 10 mg PO BEDTIME gabapentin 600 mg tablet 600 mg PO TID PRN (Reason: Pain) metoprolol succinate 25 mg tablet extended release 24 hr 25 mg PO BEDTIME (DME) pen needle, diabetic [Pentips Pen Needle] 32 gauge x 5/32 needle See Rx Instructions .ROUTE DAILY Qty: 50 Rx Instructions: As directed paroxetine HCl 40 mg tablet 40 mg PO BEDTIME Lantus Solostar U-100 Insulin 100 unit/mL (3 mL) insulin pen 36 unit subcut DAILY lidocaine 5 % adhesive patch,medicated 1 patch topical DAILY PRN (Reason: Pain) Rx Instructions: leave on most painful area for up to 12 hrs oxcarbazepine 300 mg tablet 450 mg PO BEDTIME lorazepam 2 mg tablet 2 mg PO DAILY PRN (Reason: anxiety) Qty: 1 0RF clonidine HCl 0.1 mg tablet 0.1 mg PO BEDTIME metformin 500 mg tablet extended release 24 hr 500 mg PO BEDTIME atorvastatin 80 mg tablet 80 mg PO BEDTIME Interventions: ED Discharge Assessment Last Done: 01/30/25 05:14 Discharge Date/Time: 01/30/25 05:18 Print Language: Turkish
[2025-01-29 20:10] LABS: MANUAL DIFF FLAG NO
[2025-01-29 20:14] LABS: Hematocrit 37.3 % (37.0-47.0); Hemoglobin 12.1 g/dl (12.0-16.0); Imm Gran Abs Auto 0.01 X10*3/uL (0.00-0.03); Imm Gran Pct Auto 0.2 % (0.0-0.4); Lymphocytes Absolute Auto 2.2 X10*3/uL (1.2-4.9); Mean Corpuscular HGB Conc 32.4 g/dl (31.0-35.0); Mean Corpuscular Hemoglobin 27.1 pg (27.0-33.0); Mean Corpuscular Volume 83.6 fL (80.0-98.0); NRBC Abs Auto 0.000 X10*3/uL (0.0-0.012); NRBC Pct Auto 0.0 /100WBC (0.0-0.2); Platelet Count 135 X10*3/uL (160-400); Red Blood Count 4.46 X10*6/uL (4.20-5.50); White Blood Count 6.2 X10*3/uL (4.8-10.8)
[2025-01-29 20:28] LABS: Alanine Aminotransferase 21 U/L (0-31); Albumin Level 3.9 g/dL (3.5-5.0); Alkaline Phosphatase 73 U/L (39-117); Anion Gap 12 (12-20); Aspartate Amino Transferase 13 U/L (5-31); Blood Urea Nitrogen 15 mg/dL (9-16); Calcium 9.1 mg/dL (8.4-10.2); Carbon Dioxide 26 mmol/L (22-29); Chloride 107 mmol/L (96-108); Creatinine Clr Calc Pharmacy 89.8; Estimated Glomerular Filt Rate > 60; Magnesium 1.9 mg/dL (1.6-2.6); Potassium 3.8 mmol/L (3.3-5.1); Sodium 141 mmol/L (135-145); Total Protein 6.2 g/dL (6.5-8.0)
[2025-01-29 21:02] VITALS: PULSE 64; RESP 16; TEMP 36.8; O2SAT 97
[2025-01-29 21:39] LABS: Appearance Urine Clear; Glucose Urine UA Negative (Negative); PH 6.5 (5.0-9.0); Specific Gravity - Urine 1.020 (1.005-1.025)
[2025-01-29 22:11] LABS: Resp Syncy Virus RNA Qual PCR NEGATIVE (Negative); SARS COV2 PCR INHOUSE NEGATIVE (Negative)
[2025-01-29 22:41] VITALS: BP 128/66; PULSE 72; RESP 18; TEMP 36.4; O2SAT 98
--- OUTSIDE RECORDS SUMMARY | 2025-01-30 04:46 | XMS_ITS | Encounter Summary ---
Author Organization [employer] Address [address] [place] [address] [address] [place] [address] Care Team Providers Care Stone Lathe Operator Name Role Phone Name, Kiel BAILEY Primary Care Provider [phone] Katlyn Rodriguez PharmD Unavailable [phone] Nehal Ann RN Unavailable Unavailable Ania Spencer Unavailable Opal Carrasquillo Unavailable Ania Spencer Unavailable Ania Spencer Unavailable Reason for Visit * Reason Onset Date Comments Reschedule 08/01/2023 Encounter Details Date Type Department Care Team (Late st Contact Info) Description 08/01/[address] [facility] [address] [place], [place] [phone] Name, MD Kiel [address] [place] [address] Reschedule Social History Tobacco Use Types Packs/Day [...] the past 12 months, has t he peerTransfer, gas, oil or water company threatened to [...] 08/01/2023 9:55 AM EDT Triage call with Orlando Oleo Hasher And Renderer ID [id number] . Pt reports Covid + test this [...] 08/01/2023 9:04 AM EDT Patient cancelled todays [facility] appt today. Pt's [facility]ICA PASTER appt has been rescheduled for chronic pain [...] AM EDT Tc from pt requesting r/s MICA PASTER appt, stated is sick and suspect is COVID documented in this encounter Plan of Treatment Upcoming Encounters Date Type Department Care Team (Late st Contact Info) Description 02/04/2025 11:30 AM EST Clinical Support [address] [phone] Opal Steiner RN 02/08/2025 9:30 AM EST Medication Management [address] [address] Puia, Katlyn, PharmD [address] [place] [phone] 03/13/2025 11:30 AM EST Telemedicine [address] [phone] Name, MD Kiel [address] [place] [address] 04/10/2025 10:45 AM EST Office Visit [address] [phone] Name, MD Kiel [address] [place] [address] documented as of this encounter Goals Goal [...] documented as of this encounter Care Teams Stone Lathe Operator Relationship Specialty Start Date End Date Name, MD Kiel [address] [place] [address] PCP - General Family Medicine 07/15/15 Puia, Katlyn, PharmD [address] [place] [address] Pharmacist Internal Medicine 10/08/22 Nehal Ann RN [address] [place] [address] Registered Nurse Family Medicine 08/20/24 10/29/24 Ania Spencer 08/20/24 11/26/24 Opal Carrasquillo Registered Nurse 10/29/24 11/26/24 Ania Spencer 12/14/24 12/26/24 Ania Spencer 01/09/25 01/25/25 Marta Ovalle Demurrage ManFabrication And Assembly Supervisor 05/25/23 documented as of this encounter
--- OUTSIDE RECORDS SUMMARY | 2025-01-30 04:46 | XMS_ITS ---
Author Organization [employer] Address [address] [place] [address] [address] [place] [address] Care Team Providers Care Editorial Assistant Name Role Phone Name, Kiel BAILEY Primary Care Provider [phone] Katlyn Rodriguez PharmD Unavailable [phone] [facility] Status:Closed (Closed) Start date:01/09/2025 Enrollment reason:ADT Feed End date:01/25/2025 Close reason:Transferred to [facility] Overview CP Assigned Patient. ED- [place] [facility] [place]. Continued Care and Services Coordination
--- OUTSIDE RECORDS SUMMARY | 2025-01-30 04:46 | XMS_ITS | Encounter Summary ---
Author Organization [employer] Address [address] [place] [address] [address] [place] [address] Care Team Providers Care Can Intake Worker Name Role Phone Name, Kiel BAILEY Primary Care Provider [phone] Katlyn Rodriguez PharmD Unavailable [phone] Nehal Ann RN Unavailable Unavailable Ania Spencer Unavailable Opal Carrasquillo Unavailable Ania Spencer Unavailable Ania Spencer Unavailable Encounter Details Date Type Department Care Team (Late st Contact Info) Description 05/01/2024 Telephone [facility] [address] [place], [place] [phone] Name, MD Kiel [address] [place], [place] [phone] Social History Tobacco Use Types Packs/Day Years [...] the past 12 months, has t he [employer], gas, oil or water company threatened to [...] 02/04/2025 11:30 AM EST Clinical Support [address] [address] Opal Steiner, RN 02/08/2025 9:30 AM EST Medication Management [address] [address] Katlyn Rodriguez, PharmD [address] [place] [phone] 03/13/2025 11:30 AM EST Telemedicine [facility] [address] [place] [phone] Name, [place] [address] 04/10/2025 10:45 AM EST Office Visit [facility] [address] [place] [phone] Name, [place] [address] documented as of this encounter Goals Goal [...] as of this encounter Care Teams Can Intake Worker Relationship Specialty Start Date End Date NameKiel MD [address] [place] [phone] PCP - General Family Medicine 07/15/15 Puia, Katlyn, PharmD [address] [place] [phone] Pharmacist Internal Medicine 10/08/22 Nehal Ann, MARINA [address] [place] [phone] Registered Nurse Family Medicine 08/20/24 10/29/24 Ania Spencer 08/20/24 11/26/24 Opal Carrasquillo Registered Nurse 10/29/24 11/26/24 Ania Spencer 12/14/24 12/26/24 Ania Spencer 01/09/25 01/25/25 Marta Ovalle Fleet SalespersonLaw Enforcement Officer 05/25/23 documented as of this encounter
--- OUTSIDE RECORDS SUMMARY | 2025-01-30 04:46 | XMS_ITS | Encounter Summary ---
Author Organization [employer] Address [address] [place] [address] 7t [place] [address] Care Team Providers Care Door Closer Mechanic Name Role Phone Name, Kiel BAILEY Primary Care Provider Katlyn Rodriguez PharmD Unavailable Nehal Ann RN Unavailable Unavailable Ania Spencer Unavailable Opal Carrasquillo Unavailable Ania Spencer Unavailable Ania Spencer Unavailable Encounter Details Date Type Department Care Team (Late Contact Info) Description 03/12/2022 Orders Only [facility] MED & PEDS [address] [place] [address] Millie Sawant LPN Social History Tobacco Use [...] Description 02/04/2025 11:30 AM EST Clinical Support [address] [address] Opal Steiner, RN 02/08/2025 9:30 AM EST Medication Management [address] [address] Katlyn Rodriguez PharmD [address] [place] [address] 03/13/2025 11:30 AM EST Telemedicine [address] [address] Name, MD Kiel [address] [place] [address] 04/10/2025 10:45 AM EST Office Visit [address] [address] Name, MD Kiel [address] [place] [address] documented as of this encounter Visit Diagnoses Not on filedocumented in this encounter Care Teams Door Closer Mechanic Relationship Specialty Start Date End Date Name, MD Kiel [address] [place] [address] PCP - General Family Medicine 07/15/15 Katlyn Rodriguez, PharmD [address] [place] [address] Pharmacist Internal Medicine 10/08/22 Nehal Ann, MARINA [address] [place] [address] Registered Nurse Family Medicine 08/20/24 10/29/24 Ania Spencer 08/20/24 11/26/24 Opal Carrasquillo Registered Nurse 10/29/24 11/26/24 Ania Spencer 12/14/24 12/26/24 Ania Spencer 01/09/25 01/25/25 Marta Ovalle Senior Sharepoint ArchitectActuarial Clerk 05/25/23 documented as of this encounter
--- OUTSIDE RECORDS SUMMARY | 2025-01-30 04:46 | XMS_ITS | Encounter Summary ---
Author Organization [employer] Address [address] [place] [address] 7t [place] [address] Care Team Providers Care Emergency Technician Name Role Phone Name, Kiel BAILEY Primary Care Provider [phone] Katlyn Rodriguez PharmD Unavailable Nehal Ann RN Unavailable Unavailable Ania Spencer Unavailable Opal Carrasquillo Unavailable Ania Spencer Unavailable Ania Spencer Unavailable Reason for Visit * Reason Onset Date Comments Medication Problem 08/30/2023 Encounter Details Date Type Department Care Team (Late st Contact Info) Description 08/30/2023 Telephone [facility] MEDICINE [address] [place], [place] [phone] Name, MD Kiel [address] [place], [place] [phone] Medication Problem Social History Tobacco Use Types [...] at all 09/02/2023 10:30 AM ASAELT Erika aZcarias Thoughts that you would be better off or hurting yourself in some way Not at all 09/02/2023 10:30 AM Erika Alonzo Patient Health Questionnaire -9 Score 4 09/02/2023 10:30 AM EDT Erika aZcarias documented as of this encounter Miscellaneous Notes * Telephone Encounter - Siena Bae - 08/30/2023 8:03 AM EDT Tc from pt calling to inform missed her glucose sensor while walking. documented in this encounter Plan of Treatment Upcoming Encounters Date Type Department Care Team (Late st Contact Info) Description 02/04/2025 11:30 AM EST Clinical Support [address] [address] Opal Steiner RN 02/08/2025 9:30 AM EST Medication Management [address] [address] Katlyn Rodriguez, PharmD [address] [place] [address] 03/13/2025 11:30 AM EST Telemedicine [address] [address] Name, MD Kiel [address] [place] [address] 04/10/2025 10:45 AM EST Office Visit [facility] MEDICINE [address] [place] [address] Name, MD Kiel [address] [place] [address] documented as of this encounter Goals Goal [...] documented as of this encounter Care Teams Emergency Technician Relationship Specialty Start Date End Date Name, MD Kiel [address] [place] [address] PCP - General Family Medicine 07/15/15 Puia, Katlyn, PharmD [address] [place] [address] Pharmacist Internal Medicine 10/08/22 Nehal Ann, MARINA [address] [place] [address] Registered Nurse Family Medicine 08/20/24 10/29/24 Ania Spencer 08/20/24 11/26/24 Opal Carrasquillo Registered Nurse 10/29/24 11/26/24 Ania Spencer 12/14/24 12/26/24 Ania Spencer 01/09/25 01/25/25 Marta Ovalle Referral AgentTool And Die Supervisor 05/25/23 documented as of this encounter
--- OUTSIDE RECORDS SUMMARY | 2025-01-30 04:46 | XMS_ITS | Encounter Summary ---
Author Organization [employer] Address [address] [facility] 7t [place] [address] Care Team Providers Care Leather Finisher Name Role Phone Name, Kiel BAILEY Primary Care Provider [phone] Katlyn Rodriguez PharmD Unavailable Nehal Ann RN Unavailable Unavailable Ania Spencer Unavailable Opal Carrasquillo Unavailable Ania Spencer Unavailable Ania Spencer Unavailable Reason for Visit * Reason Comments Med Refill Encounter Details Date Type Department Care Team (Late st Contact Info) Description 09/07/2023 Refill [facility] CHC MED & PEDS [address] [place], [place] [phone] Name, MD Kiel [address] [place], [place] [phone] Type 2 diabetes mellitus with other specified [...] Description 02/04/2025 11:30 AM EST Clinical Support [address] [address] Opal Steiner, RN 02/08/2025 9:30 AM EST Medication Management [address] [address] Katlyn Rodriguez, PharmD [address] [place] [address] 03/13/2025 11:30 AM EST Telemedicine [address] [address] Kiel Shaffer MD [address] [place] [address] 04/10/2025 10:45 AM EST Office Visit [address] [address] Kiel Shaffer MD [address] [place] [address], [place] [address] documented as of this encounter Goals Goal [...] as of this encounter Care Teams Leather Finisher Relationship Specialty Start Date End Date Name, MD Kiel [address] [place] [address] PCP - General Family Medicine 07/15/15 Puia, Katlyn, PharmD [address] [place] [address] Pharmacist Internal Medicine 10/08/22 Nehal Ann RN [address] [place] [address] Registered Nurse Family Medicine 08/20/24 10/29/24 Ania Spencer 08/20/24 11/26/24 Opal Carrasquillo Registered Nurse 10/29/24 11/26/24 Ania Spencer 12/14/24 12/26/24 Ania Spencer 01/09/25 01/25/25 Marta Ovalle Bird TenderYouth Counselor 05/25/23 documented as of this encounter
--- OUTSIDE RECORDS SUMMARY | 2025-01-30 04:46 | XMS_ITS | Encounter Summary ---
Author Organization [employer] Address [address] [place] [address] 7t [place] [address] Care Team Providers Care Route Carrier Name Role Phone Name, Kiel BAILEY Primary Care Provider [phone] Katlyn Rodriguez PharmD Unavailable Nehal Ann RN Unavailable Unavailable Ania Spencer Unavailable Opal Carrasquillo Unavailable Ania Spencer Unavailable Ania Spencer Unavailable Reason for Visit * Reason Comments Med Refill Encounter Details Date Type Department Care Team (Late st Contact Info) Description 04/15/2023 Refill [facility] MEDICINE [address] [place], [place] [phone] Yaneth Restrepo FNP [address] [place], [place] [phone] Diabetes mellitus type 2 in obese (CMS/HCC) [...] the past 12 months, has t he [employer] [facility], gas, oil or water company threatened [...] Description 02/04/2025 11:30 AM EST Clinical Support [address] [address] Opal Steiner, MARINA 02/08/2025 9:30 AM EST Medication Management [address] [address] Katlyn Rodriguez, PharmD [address] [place] [address] 03/13/2025 11:30 AM EST Telemedicine [address] [address] NameKiel MD [address] [place] [address] 04/10/2025 10:45 AM EST Office Visit [address] [address] Kiel Shaffer MD [address] [place] [address] documented as of this encounter Goals Goal [...] documented as of this encounter Care Teams Route Carrier Relationship Specialty Start Date End Date Name, MD Kiel [address] [place] [address] PCP - General Family Medicine 07/15/15 Katlyn Rodriguez, PharmD [address] [place] [address] Pharmacist Internal Medicine 10/08/22 Nehal Ann, MARINA [address] [place] [address] Registered Nurse Family Medicine 08/20/24 10/29/24 Ania Spencer 08/20/24 11/26/24 Opal Carrasquillo Registered Nurse 10/29/24 11/26/24 Ania Spencer 12/14/24 12/26/24 Ania Spencer 01/09/25 01/25/25 Marta Ovalle Glass Pulverizer Equipment OperatorMedical Historian 05/25/23 documented as of this encounter
--- OUTSIDE RECORDS SUMMARY | 2025-01-30 04:46 | XMS_ITS | Encounter Summary ---
Author Organization [employer] Address [address] [place] [address] 7t [place] [address] Care Team Providers Care Staff Analyst Name Role Phone Name, Kiel BAILEY Primary Care Provider [phone] Katlyn Rodriguez PharmD Unavailable Nehal Ann RN Unavailable Unavailable Ania Spencer Unavailable Opal Carrasquillo Unavailable Ania Spencer Unavailable Ania Spencer Unavailable Reason for Visit * Reason Comments Med Refill Encounter Details Date Type Department Care Team (Late st Contact Info) Description 06/27/2023 Refill [facility] MEDICINE [address] [place], [place] [phone] Katlyn Rodriguez, PharmD [address] [place], [place] [phone] Tobacco use disorder Social History Tobacco Use [...] 02/04/2025 11:30 AM EST Clinical Support [address] [address] Opal Steiner, MARINA 02/08/2025 9:30 AM EST Medication Management [address] [address] Katlyn Rodriguez, PharmD [address] [place] [address] 03/13/2025 11:30 AM EST Telemedicine [address] [address] NameKiel MD [address] [place] [address] 04/10/2025 10:45 AM EST Office Visit [address] [address] Kiel Shaffer MD [address] [place] [address] documented as of this encounter Goals Goal [...] as of this encounter Care Teams Staff Analyst Relationship Specialty Start Date End Date Name, MD Kiel [address] [place] [address] PCP - General Family Medicine 07/15/15 Puia, Katlyn, PharmD [address] [place] [address] Pharmacist Internal Medicine 10/08/22 Nehal Ann RN 230 [place] [address] Registered Nurse Family Medicine 08/20/24 10/29/24 Ania Spencer 08/20/24 11/26/24 Opal Carrasquillo Registered Nurse 10/29/24 11/26/24 Ania Spencer 12/14/24 12/26/24 Ania Spencer 01/09/25 01/25/25 Marta Ovalle Electrolytic EtcherCdl Program Coordinator 05/25/23 documented as of this encounter
--- OUTSIDE RECORDS SUMMARY | 2025-01-30 04:46 | XMS_ITS | Encounter Summary ---
Author Organization [facility] Prior to 07/21/[address] [place] [address] Care Team Providers Care Mophead Sewer Name Role Phone Name, Kiel BAILEY Primary Care Provider [phone] Encounter Details Date Type Department Care Team Description 09/10/2022 Social Work [facility] [address] [place] [address] Adina Archer [facility] Social History Tobacco Use Types Packs/Day Years [...] on filedocumented in this encounter Care Teams Mophead Sewer Relationship Specialty Start Date End Date Name, MD Kiel [address] [place] [address] [address] [place] [address] PCP - General Internal Medicine 04/17/18 documented as of this encounter
--- OUTSIDE RECORDS SUMMARY | 2025-01-30 04:47 | XMS_ITS | Encounter Summary ---
Author Organization [employer] Address [address] [facility] 7t [place] [address] Care Team Providers Care Director Channel Name Role Phone Name, Kiel BAILEY Primary Care Provider [phone] Katlyn Rodriguez PharmD Unavailable [phone] Ania Spencer Unavailable Ania Spencer Unavailable Reason for Visit * Reason Comments Med Refill Encounter Details Date Type Department Care Team (Late st Contact Info) Description 12/07/2024 Refill [facility] MEDICINE [address] [place] [address] Name, MD Kiel 230 [place], [place] [phone] Cerebellar mass; Chronic intractable headache, unspecified headache [...] Description 02/04/2025 11:30 AM EST Clinical Support [address] [address] Opal Steiner RN 02/08/2025 9:30 AM EST Medication Management [address] [address] Katlyn Rodriguez, PharmD [address] [place] [address] 03/13/2025 11:30 AM EST Telemedicine [address] [address] Name, MD Kiel [address] [place] [address] 04/10/2025 10:45 AM EST Office Visit [address] [address] Name, MD Kiel [address] [place] [address] documented as of this encounter Goals Goal [...] as of this encounter Care Teams Director Channel Relationship Specialty Start Date End Date Name, MD Kiel [address] [place] [address] PCP - General Family Medicine 07/15/15 Puia, Katlyn, PharmD 230 [place] [address] Pharmacist Internal Medicine 10/08/22 Ania Spencer 12/14/24 12/26/24 Ania Spencer 01/09/25 01/25/25 Marta Ovalle Supervisor Of WayReal Estate Leasing Manager 05/25/23 documented as of this encounter
--- OUTSIDE RECORDS SUMMARY | 2025-01-30 04:47 | XMS_ITS | Encounter Summary ---
Author Organization [employer] Address [address] [place] [address] 7t [place] [address] Care Team Providers Care Circuit Court Judge Name Role Phone Name, Kiel BAILEY Primary Care Provider Katlyn Rodriguez PharmD Unavailable Nehal Ann RN Unavailable Unavailable Ania Spencer Unavailable Opal Carrasquillo Unavailable Ania Spencer Unavailable Ania Spencer Unavailable Encounter Details Date Type Department Care Team (Late st Contact Info) Description 07/01/2022 Abstract [facility] MEDICINE [address] [place], [place] [phone] Name, MD Kiel [address] [place], [place] [phone] Social History Tobacco Use Types Packs/Day Years [...] 02/04/2025 11:30 AM EST Clinical Support [address] [address] Opal Steiner RN 02/08/2025 9:30 AM EST Medication Management [address] [phone] Katlyn Rodriguez PharmD [address] [place] [address] 03/13/2025 11:30 AM EST Telemedicine [address] [phone] NameKiel MD [address] [place] [address] 04/10/2025 10:45 AM EST Office Visit [address] [phone] Name, MD Kiel [address] [place] [address] documented as of this encounter Visit Diagnoses Not on filedocumented in this encounter Care Teams Circuit Court Judge Relationship Specialty Start Date End Date Name, MD Kiel [address] [place] [address] PCP - General Family Medicine 07/15/15 Katlyn Rodriguez, PharmD [address] [place] [address] Pharmacist Internal Medicine 10/08/22 Nehal Ann, MARINA [address] [place] [address] Registered Nurse Family Medicine 08/20/24 10/29/24 Ania Spencer 08/20/24 11/26/24 Opal Carrasquillo Registered Nurse 10/29/24 11/26/24 Ania Spencer 12/14/24 12/26/24 Ania Spencer 01/09/25 01/25/25 Marta Ovalle Lighting EngineerPress Operator Helper 05/25/23 documented as of this encounter
--- OUTSIDE RECORDS SUMMARY | 2025-01-30 04:47 | XMS_ITS | Encounter Summary ---
Author Organization [employer] Address [address] [place] [address] 7t [place] [address] Care Team Providers Care Scrap Breaker Name Role Phone Name, Kiel BAILEY Primary Care Provider [phone] Katlyn Rodriguez PharmD Unavailable Nehal Ann RN Unavailable Unavailable Ania Spencer Unavailable Opal Carrasquillo Unavailable Ania Spencer Unavailable Ania Spencer Unavailable Reason for Visit * Reason Comments Med Refill Encounter Details Date Type Department Care Team (Late st Contact Info) Description 02/10/2022 Refill [facility] MED & PEDS [address] [place], [place] [phone] Name, MD Kiel 230 [place], [place] [phone] Chronic pain syndrome (Primary Dx) Social History [...] Description 02/04/2025 11:30 AM EST Clinical Support [address] [address] Opal Steiner, MARINA 02/08/2025 9:30 AM EST Medication Management [address] [address] Katlyn Rodriguez, PharmD [address] [place] [address] 03/13/2025 11:30 AM EST Telemedicine [address] [address] NameKiel MD [address] [place] [address] 04/10/2025 10:45 AM EST Office Visit [address] [address] Name, MD Kiel [address] [place] [address] documented as of this encounter Visit Diagnoses Diagnosis Chronic pain syndrome- Primary documented in this encounter Care Teams Scrap Breaker Relationship Specialty Start Date End Date NameKiel MD [address] [place] [address] PCP - General Family Medicine 07/15/15 Katlyn Rodriguez, PharmD [address] [place] [address] Pharmacist Internal Medicine 10/08/22 Nehal Ann, MARINA [address] [place] [address] Registered Nurse Family Medicine 08/20/24 10/29/24 Ania Spencer 08/20/24 11/26/24 Opal Carrasquillo Registered Nurse 10/29/24 11/26/24 Ania Spencer 12/14/24 12/26/24 Ania Spencer 01/09/25 01/25/25 Marta Ovalle Showroom Executive DirectorAnalytics Leader 05/25/23 documented as of this encounter
--- OUTSIDE RECORDS SUMMARY | 2025-01-30 04:47 | XMS_ITS | Encounter Summary ---
Author Organization [employer] Address [address] [place] [address] 7t [place] [address] Care Team Providers Care Edging Machine Operator Name Role Phone Name, Kiel BAILEY Primary Care Provider [phone] Katlyn Rodriguez PharmD Unavailable [phone] Nehal Ann RN Unavailable Unavailable Ania Spencer Unavailable Opal Carrasquillo Unavailable nAia Spencer Unavailable Ania Spencer Unavailable Encounter Details Date Type Department Care Team (Late st Contact Info) Description 07/01/2022 Abstract [facility] MEDICINE [address] [place], [place] [phone] Name, MD Kiel [address] [place], [place] [phone] Social History Tobacco Use Types Packs/Day Years [...] Description 02/04/2025 11:30 AM EST Clinical Support [address] [address] Opal Steiner RN 02/08/2025 9:30 AM EST Medication Management [address] [address] Katlyn Rodriguez PharmD [address] [place] [address] 03/13/2025 11:30 AM EST Telemedicine [address] [address] Kiel Shaffer MD [address] [place] [address] 04/10/2025 10:45 AM EST Office Visit [address] [address] NameKiel MD [address] [place] [address] documented as of this encounter Procedures Procedure Name Priority Date/Time Associated Diagnosis Comments COLONOSCOPY Routine 07/01/2022 4:37 PM EDT documented in this encounter Results * Colonoscopy (07/01/2022 4:37 PM EDT) Colonoscopy Normal Normal Narrative Sybil Emely - 07/01/2022 4:37 PM EDT Recommended 5 year follow up [place] us Historical Provider HEALTH MAINTENANCE Final Result documented in this encounter Visit Diagnoses Not on filedocumented in this encounter Care Teams Edging Machine Operator Relationship Specialty Start Date End Date Name, MD Kiel [address] [place] [address] PCP - General Family Medicine 07/15/15 Katlyn Rodriguez PharmD [facility] [place] [address] Pharmacist Internal Medicine 10/08/22 Nehal Ann, MARINA [address] [place] [address] Registered Nurse Family Medicine 08/20/24 10/29/24 Ania Spencer 08/20/24 11/26/24 Opal Carrasquillo Registered Nurse 10/29/24 11/26/24 Ania Spencer 12/14/24 12/26/24 Ania Spencer 01/09/25 01/25/25 Marta Ovalle Intake CoordinatorStory Editor 05/25/23 documented as of this encounter
--- OUTSIDE RECORDS SUMMARY | 2025-01-30 04:47 | XMS_ITS | Encounter Summary ---
Author Organization [employer] Address [address] [facility] 7t [place] [address] Care Team Providers Care Receiving Coordinator Name Role Phone Name, Kiel BAILEY Primary Care Provider [phone] Katlyn Rodriguez PharmD Unavailable [phone] Encounter Details Date Type Department Care Team ([facility] Contact Info) Description 01/28/2025 Telephone [facility] MEDICINE [address] [place], [place] [phone] Name, MD Kiel 230 [place] [address] Social History Tobacco Use Types Packs/Day Years [...] * Telephone Encounter - Leny Toro - 01/28/2025 10:34 AM EST RX for Disposable underpads/bedpads generated and sent to PCP for signature via Docus[employer]. Once signed, will be faxed to [facility] and sent to scan. If patient calls to check status on above, please advise them to contact [facility] at [phone]. documented in this encounter Plan of Treatment Upcoming Encounters Date Type Department Care Team (Late st Contact Info) Description 02/04/2025 11:30 AM EST Clinical Support [address] [address] Opal Steiner, RN 02/08/2025 9:30 AM EST Medication Management [address] [address] Katlyn Rodriguez, Bin [address] [place] [address] 03/13/2025 11:30 AM EST Telemedicine [address] [address] Name, MD Kiel [address] [place] [address] 04/10/2025 10:45 AM EST Office Visit [facility] MEDICINE [address] [place] [address] Name, MD Kiel [address] [place] [address] documented as of this encounter Goals Goal [...] Care Plan Weekly blood pressure task No Rosario Vu Weekly blood pressure task Care Plan Weekly blood pressure task No Colon Rosario Phillips Patient has chronic kidney disease Care Plan Patient has chronic kidney disease No Colon Rosario Phillips Patient has chronic kidney disease Care Plan Patient has chronic kidney disease No Rosario Vu Weekly blood pressure task Care Plan Weekly blood pressure task No Leny Toro Weekly blood pressure task Care Plan Weekly blood pressure task No Leny Toro Patient has chronic kidney disease Care Plan Patient has chronic kidney disease No Katarzyna Toroa Patient has chronic kidney disease Care Plan Patient has chronic kidney disease No Leny Toro Weekly blood pressure task Care Plan Weekly [...] Care Plan Weekly blood pressure task No Leny Toro Weekly blood pressure task Care Plan Weekly blood pressure task No Leny Toro Patient has chronic kidney disease Care Plan Patient has chronic kidney disease No Katarzyna Toroa Patient has chronic kidney disease Care Plan Patient has chronic kidney disease No Leny Toro documented as of this encounter Visit Diagnoses [...] 01/10/2025 Patient has chronic kidney disease 01/10/2025 Weekly blood pressure task 01/22/2025 Weekly blood pressure task 01/22/2025 Patient has chronic kidney disease 01/22/2025 Patient has chronic kidney disease 01/22/2025 Weekly blood pressure task 01/22/2025 Weekly blood pressure task 01/22/2025 Patient has chronic kidney disease 01/22/2025 Patient has chronic kidney disease 01/22/2025 Weekly blood pressure task 01/23/2025 Weekly blood pressure task 01/23/2025 Patient has chronic kidney disease 01/23/2025 Patient has chronic kidney disease 01/23/2025 Weekly blood pressure task 01/23/2025 Weekly blood pressure task 01/23/2025 Patient has chronic kidney disease 01/23/2025 Patient has chronic kidney disease 01/23/2025 Weekly blood pressure task 01/25/2025 Weekly blood pressure task 01/25/2025 Patient has chronic kidney disease 01/25/2025 Patient has chronic kidney disease 01/25/2025 Weekly blood pressure task 01/28/2025 Weekly blood pressure task 01/28/2025 Patient has chronic kidney disease 01/28/2025 Patient has chronic kidney disease 01/28/2025 Assessment Noted Time PHQ-9 Depression Total Score: 7 09/05/19 25 11:46 AM EDT documented as of this encounter Care Teams Receiving Coordinator Relationship Specialty Start Date End Date Name, MD Kiel 230 [place] [address] PCP - General Family Medicine 07/15/15 Katlyn Rodriguez, Bin [address] [place] [address] Pharmacist Internal Medicine 10/08/22 Marta Ovalle Automatic Head SawyerSales Advisor 05/25/23 documented as of this encounter
--- OUTSIDE RECORDS SUMMARY | 2025-01-30 04:47 | XMS_ITS | Encounter Summary ---
Author Organization [employer] Address [address] [place] [address] [address] [place] [address] Care Team Providers Care Hand Wood Sander Name Role Phone Name, Kiel BAILEY Primary Care Provider Katlyn Rodriguez PharmD Unavailable Nehal Ann RN Unavailable Unavailable Ania Spencer Unavailable Opal Carrasquillo Unavailable Ania Spencer Unavailable Ania Spencer Unavailable Reason for Visit * Reason Comments Med Refill Encounter Details Date Type Department Care Team (Late st Contact Info) Description 07/02/2022 Refill [facility] [address], [place] [phone] Name, MD Kiel [address] [place], [place] [phone] Chronic pain syndrome Social History Tobacco Use [...] Description 02/04/2025 11:30 AM EST Clinical Support [address] [address] Opal Steiner RN 02/08/2025 9:30 AM EST Medication Management [address] [address] Katlyn Rodriguez, PharmD [address] [place] [address] 03/13/2025 11:30 AM EST Telemedicine [address] [place] [address] Name, MD Kiel [address] [place] [phone] 04/10/2025 10:45 AM EST Office Visit [address] [place] [address] Name, MD Kiel [address] [place] [phone] documented as of this encounter Visit Diagnoses Diagnosis Chronic pain syndrome documented in this encounter Care Teams Hand Wood Sander Relationship Specialty Start Date End Date Name, MD Kiel [address] [place] [id number] PCP - General Family Medicine 07/15/15 Katlyn Rodriguez, PharmD [address] [place] [phone] Pharmacist Internal Medicine 10/08/22 Nehal Ann, MARINA [address] [place] [phone] Registered Nurse Family Medicine 08/20/24 10/29/24 Ania Spencer 08/20/24 11/26/24 Opal Carrasquillo Registered Nurse 10/29/24 11/26/24 Ania Spencer 12/14/24 12/26/24 Ania Spencer 01/09/25 01/25/25 Marta Ovalle Sediment Remediation ConsultantSponge Packer 05/25/23 documented as of this encounter
--- OUTSIDE RECORDS SUMMARY | 2025-01-30 04:47 | XMS_ITS | Encounter Summary ---
Author Organization [employer] Address [address] [place] [address] 7[address] [place] [address] Care Team Providers Care Fruit Or Nut Picker Name Role Phone Name, Kiel BAILEY Primary Care Provider [phone] Katlyn Rodriguez PharmD Unavailable Nehal Ann RN Unavailable Unavailable Ania Spencer Unavailable Opal Carrasquillo Unavailable Ania Spencer Unavailable Ania Spencer Unavailable Reason for Visit * Reason Comments Med Refill Encounter Details Date Type Department Care Team (Late st Contact Info) Description 07/16/2022 Refill [facility] [address], [place] [phone] Name, MD Kiel [address] [place], [place] [phone] Chronic pain syndrome Social History Tobacco Use [...] Description 02/04/2025 11:30 AM EST Clinical Support [address] [address] Opal Steiner RN 02/08/2025 9:30 AM EST Medication Management [address] [address] Katlyn Rodriguez PharmD [address] [place] [phone] 03/13/2025 11:30 AM EST Telemedicine [address] [address] NameKiel MD [address] [place] [phone] 04/10/2025 10:45 AM EST Office Visit [address] [address] NameKiel MD [address] [place] [address] documented as of this encounter Visit Diagnoses Diagnosis Chronic pain syndrome documented in this encounter Additional Health Concerns Assessment Noted Time PHQ-9 Depression Total Score: 7 07/15/19 23 2:39 PM EDT documented as of this encounter Care Teams Fruit Or Nut Picker Relationship Specialty Start Date End Date Name, MD Kiel [address] [place] [phone] PCP - General Family Medicine 07/15/15 Katlyn Rodriguez PharmD [address] [place] [phone] Pharmacist Internal Medicine 10/08/22 Nehal Ann, RN [address] [place] [phone] Registered Nurse Family Medicine 08/20/24 10/29/24 Ania Spencer 08/20/24 11/26/24 Opal Carrasquillo Registered Nurse 10/29/24 11/26/24 Ania Spencer 12/14/24 12/26/24 Ania Spencer 01/09/25 01/25/25 Marta Ovalle Sba UnderwriterPractice Consultant 05/25/23 documented as of this encounter
--- OUTSIDE RECORDS SUMMARY | 2025-01-30 04:47 | XMS_ITS | Encounter Summary ---
Author Organization [employer] Address [address] [facility] 7[address] [place] [address] Care Team Providers Care Structural Iron Erector Name Role Phone Name, Kiel BAILEY Primary Care Provider [phone] Katlyn Rodriguez PharmD Unavailable [phone] Encounter Details Date Type Department Care Team ([facility] Contact Info) Description 01/29/2025 Orders Only GENERIC EXTERNAL DATA DEPARTMENT Provider, [...] t he electric, gas, oil or water [employer] threatened to shut off services in your [...] 02/04/2025 11:30 AM EST Clinical Support [address] [address] Opal Steiner RN 02/08/2025 9:30 AM EST Medication Management [address] [address] Katlyn Rodriguez PharmD [address] [place] [address] 03/13/2025 11:30 AM EST Telemedicine [address] [address] Kiel Shaffer MD [address] [place] [address] 04/10/2025 10:45 AM EST Office Visit [address] [address] Kiel Shaffer MD [address] [place] [phone] documented as of this encounter Goals Goal Patient Goal Type Associated Problems Recent Progress Patient-Stated? Author Record your blood pressure once per day Blood Pressure No PuiaReidKatlyn, PharmD Blood Pressure < 140/90 Blood Pressure 139/89(2024 11:46 AM EST) No PuiaPremasa, PharmD Hemoglobin A1c < 7 Result Component 7.8(11/19/202 5 1:16 PM EST) No AdeniaReidKatlyn, PharmD Record your blood sugar as directed Result Component No Puia, Katlyn, PharmD Help patients manage their type 2 diabetes Care Plan Help patients manage their type 2 diabetes No Puia Katlyn, PharmD Weekly blood pressure task Care Plan Weekly blood pressure task No Puia Katlyn, PharmD Help patients manage [...] Plan Weekly blood pressure task No Colon Phillips, Rosario Weekly blood pressure task Care Plan Weekly blood pressure task No Colon Phillips, Rosario Patient has chronic kidney disease Care Plan Patient has chronic kidney disease No Colon Phillips, Orsario Patient has chronic kidney disease Care Plan Patient has chronic kidney disease No Colon Phillips, Rosario Weekly blood pressure task Care Plan Weekly blood pressure task No Katarzyna Toroa Weekly blood pressure task Care Plan Weekly blood pressure task No ToroFreedom ortegaLeny Patient has chronic kidney disease Care Plan Patient has chronic kidney disease No Toro, Leny Patient has chronic kidney disease Care Plan Patient has chronic kidney disease No Katarzyna Toroa Weekly blood pressure task Care Plan Weekly [...] Plan Patient has chronic kidney disease No Obdulia, Opal, RN Weekly blood pressure task Care Plan Weekly blood pressure task No Ania Spencer Weekly blood pressure task Care Plan Weekly blood pressure task No Ania Spencer Patient has chronic kidney disease Care Plan Patient has chronic kidney disease No Ania Spencer Patient has chronic kidney disease Care Plan Patient has chronic kidney disease No Tj Ania Weekly blood pressure task Care Plan Weekly blood pressure task No Leny Toro Weekly blood pressure task Care Plan Weekly blood pressure task No Leny Toro Patient has chronic kidney disease Care Plan Patient has chronic kidney disease No Leny Toro Patient has chronic kidney disease Care Plan Patient has chronic kidney disease No Leny Toro documented as of this encounter Procedures Procedure Name Priority Date/Time Associated Diagnosis Comments CT CHEST WO CONTRAST Routine 01/29/2025 9:[address] HEAD WO CONTRAST Routine 01/29/2025 9 :28 PM EST SARS COV2/INFLUENZA A/B AND RSV RNA QL NAAT Routine 01/29/2025 9:27 PM EST URINALYSIS WITH REFLEX MICROSCOPIC Routine 01/29/2025 9:[address] ABDOMEN PELVIS WO CONTRAST Routine 01/29/2025 9:[address] CERVICAL SPINE WO CONTRAST Routine 01/29/2025 9:21 PM EST CBC WITH AUTO DIFFERENTIAL Routine 01/29/2025 8:05 PM EST MAGNESIUM Routine 01/29/2025 8:05 PM EST CREATINE KINASE, TOTAL Routine 8:05 PM EST COMPREHENSIVE METABOLIC PANEL Routine 01/29/2025 8:05 PM EST documented in this encounter Results * CT Chest w/o Contrast (01/29/2025 9:31 PM EST) Anatomical Region Laterality Modality Body, Chest Computed Tomogra phy 01/29/2025 9:31 PM EST Narrative 01/29/2025 9:32 PM EST [address] [address] [address] Scan Report Signed Patient: Sarita Puga MR#: [id number] 92 : 1965 Acct:[id number] Age/Sex: 59 / F ADM Date: 01/29/25 Loc: HO.ED Attending Dr: Ordering Physician: Brown Blair Date of Service: 01/29/25 Procedure(s): CT chest wo IV con Accession Number(s): [id number] cc: Brown Blair; Name,Kiel BAILEY Report Number: [id number]: Total DLP = 457.00 mGy-cm Reason for Exam: Fall CLINICAL HISTORY: Fall CT chest without contrast Comparison: 04/06/2024 Findings: Lung knight are clear without acute infiltrates. No significant mediastinal adenopathy. No significant free pleural fluid. No significant focal bony abnormalities. Impression: No acute processes This document has been electronically signed by: Luis Nguyen MD on 01/29/2025 21:31:28 Dictated By: Luis Nguyen MD Signed By: <Electronically signed by Luis Nguyen MD in OV> 01/29/252130 DD/ 30 TD/TT: 01/29/252130 Silk Screen Etcher: Procedure Note Donotuseinterpreter, Image - 01/29/[address] [address] [address] Scan Report Signed Patient: Sarita Puga MMR#: [id number] 92 : 1965Acct:[id number] Age/Sex: 59 / FADM Date: 01/29/25 Loc: .ED Attending Dr: Ordering Physician: Brown Blair Date of Service: 01/29/25 Procedure(s): CT chest wo IV con Accession Number(s): [id number] cc: Brown Blair; Name,Kiel BAILEY Report Number: [id number]: Total DLP = 457.00 mGy-cm Reason for Exam: Fall CLINICAL HISTORY: Fall CT chest without contrast Comparison: 04/06/2024 Findings: Lung knight are clear without acute infiltrates. No significant mediastinal adenopathy. No significant free pleural fluid. No significant focal bony abnormalities. Impression: No acute processes This document has been electronically signed by: Luis Nguyen MD on 01/29/2025 21:31:28 Dictated By: Luis Nguyen MD Signed By: <Electronically signed by Luis Nguyen MD in OV> 01/29/252130 DD/ 30 TD/TT: 01/29/252130 Silk Screen Etcher: [facility] External Provider IMG CT PROCEDURES Edited Result - Final * CT Head w/o Contrast (01/29/2025 9:28 PM EST) Anatomical Region Laterality Modality Head, Neck Computed Tomogra phy 01/29/2025 9:28 PM EST Narrative 01/29/2025 9:30 PM EST [place] [address] CT Scan Report Signed Patient: Sarita Puga MR#: [id number] 92 : 1965 Acct:[id number] Age/Sex: 59 / F ADM Date: 01/29/25 Loc: HO.ED Attending Dr: Ordering Physician: Brown Blair Date of Service: 01/29/25 Procedure(s): CT head/brain wo IV con Accession Number(s): [id number] cc: Brown Blair; Name,Kiel BAILEY Report Number: [id number]: Total DLP = 1286.00 mGy-cm Reason for Exam: fall, weakness CLINICAL HISTORY: fall, weakness CT head without contrast Comparison: 08/17/2024 Findings: No acute intracranial fluid collection or hematoma. Mild chronic white matter disease with volume loss. No acute process in sinuses or mastoids. No acute bony abnormality. Impression: No acute intracranial process This document has been electronically signed by: Luis Nguyen MD on 01/29/2025 21:28:38 Dictated By: Luis Nguyen MD Signed By: <Electronically signed by Luis Nguyen MD in OV> 01/29/252129 DD/ 27 TD/TT: 01/29/252127 Silk Screen Etcher: Procedure Note Donotramakrishnainterpreter, Image - 01/29/[address] [place] [address] [address] Scan Report Signed Patient: Sarita Puga MMR#: [id number] 92 : 1965Acct:[id number] Age/Sex: 59 / FADM Date: 01/29/25 Loc: HO.ED Attending Dr: Ordering Physician: Brown Blair Date of Service: 01/29/25 Procedure(s): CT head/brain wo IV con Accession Number(s): [id number] cc: Brown Blair; Name,Kiel BAILEY Report Number: [id number]: Total DLP = 1286.00 mGy-cm Reason for Exam: fall, weakness CLINICAL HISTORY: fall, weakness CT head without contrast Comparison: 08/17/2024 Findings: No acute intracranial fluid collection or hematoma. Mild chronic white matter disease with volume loss. No acute process in sinuses or mastoids. No acute bony abnormality. Impression: No acute intracranial process This document has been electronically signed by: Luis Nguyen MD on 01/29/2025 21:28:38 Dictated By: Luis Nguyen MD Signed By: <Electronically signed by Luis Nguyen MD in OV> 01/29/252129 DD/ 27 TD/TT: 01/29/252127 Silk Screen Etcher: [facility] External Provider IMG CT PROCEDURES Edited Result - Final * SARS-CoV-2 RNA, Influenza A/B, and RSV RNA, Ql NAAT (01/29/2025 9:27 PM EST) Influenza A PCR NEGATIVE Negative [facility] Influenza B PCR NEGATIVE Negative [facility] Resp Syncy Virus RNA Qual PCR NEGATIVE Negative [facility] SARS COV2 PCR NEGATIVE Negative [facility] Comment:All test results mus t [...] use by authorized laboratories.Testing performed on the [employer] GeneXpert utilizingreal-time RT-PCR.All SARS CoV2 and positive influenza A/B results arereported to [facility]. 01/29/2025 9:27 PM EST 01/29/2025 9:33 PM EST Generic External Data Provider LAB MICROBIOLOGY - GENERAL ORDERABLES Final Result Performing Organization Address [facility]/ZIP Co de Phone Number [facility] [address] [place] [phone] * Urinalysis w/reflex microscopic (01/29/2025 9:27 PM EST) Color Urine Yellow [facility] Appearance Urine Clear [facility] PH 6.5 5.0 - 9.0 [facility] Glucose Urine UA Negative Negative mg/dL [facility] Urine Blood Negative Negative [facility] Specific Oriental - Urine 1.020 1.005 - 1.025 [facility] Urine Protein Negative Neg-Trace mg/dL [facility] Urine Ketones Negative Negative mg/dL [facility] Nitrite Urine Negative Negative [facility] Leukocyte Esterase Urine Negative Negative [facility] 01/29/2025 9:27 PM EST 01/29/2025 9:33 PM EST Narrative [facility] - 01/29/2025 9:42 PM EST Urine, Clean Catch Generic External Data Provider LAB URINE ORDERAB LES Final Result Performing Organization Address [facility]/ZIP Co de Phone Number [facility] [address] [place] [phone] * CT Abdomen Pelvis w/o Contrast (01/29/2025 9:24 PM EST) Anatomical Region Laterality Modality Body, Pelvis, Abdomen Computed T omography 01/29/2025 9:24 PM EST Narrative 01/29/2025 9:25 PM EST [address] [address] [address] Scan Report Signed Patient: Sarita Puga MR#: [id number] 92 : 1965 Acct:[id number] Age/Sex: 59 / F ADM Date: 01/29/25 Loc: HO.ED Attending Dr: Ordering Physician: Brown Blair Date of Service: 01/29/25 Procedure(s): CT abdomen pelvis wo IV con Accession Number(s): [id number] cc: Brown Blair; Name,Kiel BAILEY Report Number: [id number]: Total DLP = 994.00 mGy-cm Reason for Exam: Fall CLINICAL HISTORY: Fall CT abdomen and pelvis without contrast Comparison: 04/06/2024 Findings: Lung bases clear. No acute bony abnormality. Liver and spleen within normal limits. Pancreas and adrenal glands unremarkable. Gallbladder within normal limits. Small right renal artery calcified aneurysm. Small nonobstructing left renal stone. No significant renal abnormality identified. No evidence for aortic aneurysm. No free fluid or adenopathy in the pelvis. No diverticulitis. Appendix unremarkable. Hysterectomy. No adnexal abnormality. Impression: No acute processes This document has been electronically signed by: Luis Nguyen MD on 01/29/2025 21:24:22 Dictated By: Luis Nguyen MD Signed By: <Electronically signed by Luis Nguyen MD in OV> 01/29/252123 DD/ 23 TD/TT: 01/29/252123 Silk Screen Etcher: Procedure Note Donotuseinterpreter, Image - 01/29/[address] [address] [address] Scan Report Signed Patient: Sarita Puga MMR#: [id number] 92 : 1965Acct:[id number] Age/Sex: 59 / FADM Date: 01/29/25 Loc: HO.ED Attending Dr: Ordering Physician: Brown Blair Date of Service: 01/29/25 Procedure(s): CT abdomen pelvis wo IV con Accession Number(s): [id number] cc: Brown Blair; Name,Kiel BAILEY Report Number: [id number]: Total DLP = 994.00 mGy-cm Reason for Exam: Fall CLINICAL HISTORY: Fall CT abdomen and pelvis without contrast Comparison: 04/06/2024 Findings: Lung bases clear. No acute bony abnormality. Liver and spleen within normal limits. Pancreas and adrenal glands unremarkable. Gallbladder within normal limits. Small right renal artery calcified aneurysm. Small nonobstructing left renal stone. No significant renal abnormality identified. No evidence for aortic aneurysm. No free fluid or adenopathy in the pelvis. No diverticulitis. Appendix unremarkable. Hysterectomy. No adnexal abnormality. Impression: No acute processes This document has been electronically signed by: Luis Nguyen MD on 01/29/2025 21:24:22 Dictated By: Luis Nguyen MD Signed By: <Electronically signed by Luis Nguyen MD in OV> 01/29/252123 DD/ 23 TD/TT: 01/29/252123 Silk Screen Etcher: [facility] External Provider IMG CT PROCEDURES Edited Result - Final * CT Cervical Spine w/o Contrast (01/29/2025 9:21 PM EST) Anatomical Region Laterality Modality Spine, C-spine Computed Tomogra phy 01/29/2025 9:21 PM EST Narrative 01/29/2025 9:22 PM EST [address] [address] [address] Scan Report Signed Patient: Sarita Puga MR#: [id number] 92 : 1965 Acct:[id number] Age/Sex: 59 / F ADM Date: 01/29/25 Loc: HO.ED Attending Dr: Ordering Physician: Brown Blair Date of Service: 01/29/25 Procedure(s): CT cervical spine wo IV con Accession Number(s): [id number] cc: Brown Blair; Name,Kiel BAILEY Report Number: [id number]: Total DLP = 478.00 mGy-cm Reason for Exam: Fall CLINICAL HISTORY: Fall CT cervical spine without contrast Comparison: 08/02/2024 Findings: Study considerably limited by body habitus. Motion artifact also limits assessment. C7 level not included on this study. No definite fracture is identified. Recommend repeat study when patient can cooperate. Moderate degenerative change. No radiopaque foreign bodies. Impression: Very limited study as above No acute process identified Recommend repeat study This document has been electronically signed by: Luis Nguyen MD on 01/29/2025 21:21:07 Dictated By: Luis Nguyen MD Signed By: <Electronically signed by Luis Nguyen MD in OV> 01/29/252120 DD/ 20 TD/TT: 01/29/252120 Silk Screen Etcher: Procedure Note Donotuseinterpreter, Image - 01/29/[address] [place] [address] [address] Scan Report Signed Patient: Sarita Puga [facility]#: [id number] 92 : 1965Acct:[id number] Age/Sex: 59 / FADM Date: 01/29/25 Loc: HO.ED Attending Dr: Ordering Physician: Brown Blair Date of Service: 01/29/25 Procedure(s): CT cervical spine wo IV con Accession Number(s): [id number] cc: Brown Blair; Deena,Kiel BAILEY Report Number: [id number]: Total DLP = 478.00 mGy-cm Reason for Exam: Fall CLINICAL HISTORY: Fall CT cervical spine without contrast Comparison: 08/02/2024 Findings: Study considerably limited by body habitus. Motion artifact also limits assessment. C7 level not included on this study. No definite fracture is identified. Recommend repeat study when patient can cooperate. Moderate degenerative change. No radiopaque foreign bodies. Impression: Very limited study as above No acute process identified Recommend repeat study This document has been electronically signed by: Luis Nguyen MD on 01/29/2025 21:21:07 Dictated By: Luis Nguyen MD Signed By: <Electronically signed by Luis Nguyen MD in OV> 01/29/252120 DD/ 20 TD/TT: 01/29/252120 Silk Screen Etcher: [facility] External Provider IMG CT PROCEDURES Edited Result - Final * Creatine Kinase, Total (01/29/2025 8:05 PM EST) Pathologist [facility] Creatine Kinase Total 41 26 - 140 U/L [facility] 01/29/2025 8:05 PM EST 01/29/2025 8:08 PM EST Generic External Data Provider LAB BLOOD ORDERAB LES Final Result Performing Organization Address [facility] Co de Phone Number [facility] [address] [place] [phone] * Magnesium (01/29/2025 8:05 PM EST) [facility] Magnesium 1.9 1.6 - 2.6 mg/dL [facility] 01/29/2025 8:05 PM EST 01/29/2025 8:08 PM EST Generic External Data Provider LAB BLOOD ORDERAB LES Final Result Performing Organization Address [facility] Co de Phone Number [facility] [address] [place] [phone] * (ABNORMAL) Comprehensive Metabolic Panel (01/29/2025 8:05 PM EST) Pathologist [facility] Sodium 141 135 - 145 mmol/L [facility] Potassium 3.8 3.3 - 5.1 mmol/L [facility] Chloride 107 96 - 108 mmol/L [facility] Carbon Dioxide 26 22 - 29 mmol/L [facility] Anion Gap 12 12 - 20 [facility] Urea Nitrogen (BUN) 15 9 - 16 mg/dL [facility] Creatinine, Serum 0.79 0.5 - 1.4 mg/dL [facility] Creatinine Clr Calc Pharmacy 89.8 [facility] Comment:Provided height and weight: 160.02 cm,107.048 kg.eGFR (calculated from the MDRD study equation) and eCrCl(calculated from the Cockcroft-Gault equation) are based ondifferent parameters and may not yield comparable results.If eCrCl result is absurd, please check patient'sheight/weight. Estimated Glomerular Filt Rate >60 [facility] Comment:Chronic Kidney Disea se: Estimated GFR < 60 mL/min/1.35q9Sprfhj Kidney Disease: Estimated GFR < 15 mL/min/1.73m2 Glucose 154(H) 60 - 115 mg/dL [facility] Calcium 9.1 8.4 - 10.2 mg/dL [facility] Bilirubin, Total 0.2 0.0 - 1.0 mg/dL [facility] Aspartate Amino Transferase 13 5 - 31 U/L [facility] Alanine Aminotransferase 21 0 - 31 U/L [facility] Total Protein 6.2(L) 6.5 - 8.0 g/dL [facility] Albumin Level 3.9 3.5 - 5.0 g/dL [facility] Alkaline Phosphatase 73 39 - 117 U/L [facility] 01/29/2025 8:05 PM EST 01/29/2025 8:08 PM EST us Generic External Data Provider LAB BLOOD ORDERAB LES Final Result [facility] [address] [place] [address] [phone] * (ABNORMAL) CBC auto differential (01/29/2025 8:05 PM EST) White Blood Count 6.2 4.8 - 10.8 X10*3/uL [facility] Red Blood Count 4.46 4.20 - 5.50 X10*6/uL [facility] Hemoglobin 12.1 12.0 - 16.0 g/dl [facility] Hematocrit 37.3 37.0 - 47.0 % [facility] Mean Corpuscular Volume 83.6 80.0 - 98.0 fL [facility] Mean Corpuscular Hemoglobin 27.1 27.0 - 33.0 pg [facility] Mean Corpuscular HGB Conc 32.4 31.0 - 35.0 g/dl [facility] Red Cell Distribution Width 12.9 11.0 - 16.0 % [facility] Platelet Count 135(L) 160 - 400 X10*3/uL [facility] Mean Platelet Volume 11.9 9.4 - 12.3 fL [facility] Neutrophils Percent Auto 54.8 45 - 73 % [facility] Imm Gran Pct Auto 0.2 0.0 - 0.4 % [facility] Lymphocytes Percent Auto 36.1 20 - 40 % [facility] Monocytes Percent Auto 6.1 2 - 11 % [facility] Eosinophils Percent Auto 1.8 0 - 4 % [facility] Basophils Percent Auto 1.0 0 - 2 % [facility] NRBC Pct Auto 0.0 0.0 - 0.2 /100WBC [facility] Neutrophils Absolute Auto 3.4 2.0 - 8.3 x10*3/uL [facility] Imm Gran Abs Auto 0.01 0.00 - 0.03 X10*3/uL [facility] Lymphocytes Absolute Auto 2.2 1.2 - 4.9 X10*3/uL [facility] Monocytes Absolute Auto 0.4 0.1 - 1.2 X10*3/uL [facility] Eosinophils Absolute Auto 0.1 0.0 - 0.4 X10*3/uL [facility] Basophils Absolute Auto 0.1 0.0 - 0.2 X10*3/uL [facility] NRBC Abs Auto 0.000 0.0 - 0.012 X10*3/uL [facility] 01/29/2025 8:05 PM EST 01/29/2025 8:08 PM EST us Generic External Data Provider LAB BLOOD ORDERAB LES Final Result Performing Organization Address City/State/[facility] Co de Phone Number [facility] [address] [place] [address] [phone] documented in this encounter Visit Diagnoses [...] documented as of this encounter Care Teams Structural Iron Erector Relationship Specialty Start Date End Date Name, MD Kiel [address] [place] [address] PCP - General Family Medicine 07/15/15 Katlyn Rodriguez PharmD [address] [place] [address] Pharmacist Internal Medicine 10/08/22 Marta Ovalle Loom ChangerRock Dust Sprayer 05/25/23 documented as of this encounter
--- OUTSIDE RECORDS SUMMARY | 2025-01-30 04:47 | XMS_ITS | Encounter Summary ---
Author Organization [employer] Address [address] [facility] [address] [place] [address] Care Team Providers Care Business Planning Director Name Role Phone Name, Kiel BAILEY Primary Care Provider [phone] Katlyn Rodriguez PharmD Unavailable Nehal Ann RN Unavailable Unavailable Ania Spencer Unavailable Opal Carrasquillo Unavailable Ania Spencer Unavailable Ania Spencer Unavailable Reason for Visit * Reason Comments Med Refill Encounter Details Date Type Department Care Team (Late st Contact Info) Description 06/08/2024 Refill [facility] [address] [place], [place] [phone] Name, MD Kiel [address] [place] [address] Chronic pain syndrome Social History Tobacco Use [...] Description 02/04/2025 11:30 AM EST Clinical Support [address] [address] Opal Steiner RN 02/08/2025 9:30 AM EST Medication Management [address] [address] Katlyn Rodriguez, PharmD [address] [place] [phone] 03/13/2025 11:30 AM EST Telemedicine [address] [address] Name, MD Kiel [address] [place] [phone] 04/10/2025 10:45 AM EST Office Visit [address] [address] Name, MD Kiel [address] [place] [phone] documented as of this encounter Goals Goal [...] as of this encounter Care Teams Business Planning Director Relationship Specialty Start Date End Date Name, MD Kiel [address] [place] [phone] PCP - General Family Medicine 07/15/15 Puia, Katlyn, PharmD [address] [place] [phone] Pharmacist Internal Medicine 10/08/22 Nehal Ann, MARINA [address] [place] [phone] Registered Nurse Family Medicine 08/20/24 10/29/24 Ania Spencer 08/20/24 11/26/24 Opal Carrasquillo Registered Nurse 10/29/24 11/26/24 Ania Spencer 12/14/24 12/26/24 Ania Spencer 01/09/25 01/25/25 Marta Ovalle Hardening Machine Operator HelperFull Roll Inspector 05/25/23 documented as of this encounter
--- OUTSIDE RECORDS SUMMARY | 2025-01-30 04:47 | XMS_ITS | Clinical Summary ---
Author Organization [facility] Prior to 07/21/[address] [place] [address] Care Team Providers Care Outside Repairer Special Name Role Phone Name, Kiel BAILEY Primary Care Provider [phone] Allergies Active Allergy Reactions Criticality Noted Date [...] age to complete this topic Care Teams Outside Repairer Special Relationship Specialty Start Date End Date Name, MD Kiel [address] [facility] [address] [place] [address] PCP - General Internal Medicine 04/17/18
--- OUTSIDE RECORDS SUMMARY | 2025-01-30 04:47 | XMS_ITS | Encounter Summary ---
Author Organization [employer] Address [address] [facility] 7t [place] [address] Care Team Providers Care Bag Worker Name Role Phone Name, Kiel BAILEY Primary Care Provider [phone] Katlyn Rodriguez PharmD Unavailable Nehal Ann RN Unavailable Unavailable Ania Spencer Unavailable Opal Carrasquillo Unavailable Ania Spencer Unavailable Ania Spencer Unavailable Encounter Details Date Type Department Care Team (Late st Contact Info) Description 02/20/2024 Telephone [facility] [address] [place] [address] Name, MD Kiel [address] [place] [address] Social History Tobacco Use Types Packs/Day Years [...] Description 02/04/2025 11:30 AM EST Clinical Support [address] [address] Opal Steiner, RN 02/08/2025 9:30 AM EST Medication Management [address] [address] Katlyn Rodriguez, PharmD [address] [place] [address] 03/13/2025 11:30 AM EST Telemedicine [address] [address] Kiel Shaffer MD [address] [place] [address] 04/10/2025 10:45 AM EST Office Visit [address] [address] Kiel Shaffer MD [address] [place] [address] documented as of this encounter Goals Goal [...] documented as of this encounter Care Teams Bag Worker Relationship Specialty Start Date End Date Name, MD Kiel [address] [place] [address] PCP - General Family Medicine 07/15/15 Puia, Katlyn, PharmD [address] [place] [address] Pharmacist Internal Medicine 10/08/22 Nehal Ann RN [address] [place] [address] Registered Nurse Family Medicine 08/20/24 10/29/24 Ania Spencer 08/20/24 11/26/24 Opal Carrasquillo Registered Nurse 10/29/24 11/26/24 Ania Spencer 12/14/24 12/26/24 Ania Spencer 01/09/25 01/25/25 Marta Ovalle Nursing InstructorVegetable Packer 05/25/23 documented as of this encounter
--- OUTSIDE RECORDS SUMMARY | 2025-01-30 04:47 | XMS_ITS | Encounter Summary ---
Author Organization [employer] Address 75 [facility] 7t [place] [address] Care Team Providers Care Program Administrator Name Role Phone Name, Kiel BAILEY Primary Care Provider [phone] Katlyn Rodriguez PharmD Unavailable [phone] Ania Spencer Unavailable Reason for Visit * Reason Comments Care Coordination Communication to pts assigned CP Coordinator Encounter Details Date Type Department Care Team (Latest Contact Info) Description 01/25/2025 Patient Outreach [facility] [address] [place] [address] Name, MD Kiel [address] [place] [address] Care Coordination (Communication to pts assigned CP Coordinator ) Social History Tobacco Use Types Packs/Day [...] encounter Progress Notes * Ania Spencer - 01/25/2025 11:21 AM EST Ben, I am writing to you as our records indicate that the following patient is engaged in your program: Patient Sarita Puga 1965.This email is to notify you that we have received notification that the patient went to [facility] ED on 01/08/25. The patient has been outreached by the [facility]'s triage nurse for a status check, but was unsuccessful. If you are able to connect with the patient, please advise the patient to contact the [facility] for an ED follow up with the provider. If there are any questions or concerns, please feel free to reach out to me. Thank You documented in this encounter Plan of Treatment Upcoming Encounters Date Type Department Care Team (Late st Contact Info) Description 02/04/2025 11:30 AM EST Clinical Support [facility] [address] [place] [address] Opal Steiner RN 02/08/2025 9:30 AM EST Medication Management [facility] [address] [place] [address] Puia, Katlyn, PharmD [address] [place] [address] 03/13/2025 11:30 AM EST Telemedicine [address] [address] Name, MD Kiel [address] [place] [address] 04/10/2025 10:45 AM EST Office Visit [facility] [address] [place] [address] Name, MD Kiel [address] [place], [place] documented as of this encounter Goals [...] blood pressure task No Noni Pierson, RN Patient has chronic kidney disease Care Plan Patient has chronic kidney disease No Noni PiersonMARINA Patient has chronic kidney disease Care Plan [...] Weekly blood pressure task No Rosario Vu Patient has chronic kidney disease Care Plan Patient has chronic kidney disease No Rosario Vu Patient has chronic kidney disease Care Plan Patient has chronic kidney disease No Rosario Vu Weekly blood pressure task Care Plan Weekly blood pressure task No Leny Toro Weekly blood pressure task Care Plan Weekly blood pressure task No Toro Leny Patient has chronic kidney disease Care Plan Patient has chronic kidney disease No Toro Leny Patient has chronic kidney disease Care Plan Patient has chronic kidney disease No Freedom Torolanda Weekly blood pressure task Care Plan Weekly [...] 01/25/2025 Patient has chronic kidney disease 01/25/2025 Assessment Noted Time PHQ-9 Depression Total Score: 7 09/05/19 25 11:46 AM EDT documented as of this encounter Care Teams Program Administrator Relationship Specialty Start Date End Date Name, MD Kiel [address] [place], [place] [phone] PCP - General Family Medicine 07/15/15 Katlyn Rodriguez PharmD [address] [place], [place] [phone] Pharmacist Internal Medicine 10/08/22 Ania Spencer 01/09/25 01/25/25 Marta Ovalle Brand LeadLettuce Trimmer 05/25/23 documented as of this encounter
--- OUTSIDE RECORDS SUMMARY | 2025-01-30 04:47 | XMS_ITS | Encounter Summary ---
Author Organization [employer] Address [address] [place] [address] 7t [place] [address] Care Team Providers Care Bdc Manager Name Role Phone Name, Kiel BAILEY Primary Care Provider [phone] Katlyn Rodriguez PharmD Unavailable [phone] Nehal Ann RN Unavailable Unavailable Ania Spencer Unavailable Opal Carrasquillo Unavailable Ania Spencer Unavailable Ania Spencer Unavailable Reason for Visit * Reason Onset Date Comments Appointment Request 02/29/2024 Encounter Details Date Type Department Care Team (Late st Contact Info) Description 02/29/2024 Telephone [facility] [address] [place], [place] [phone] Name, MD Kiel [address] [place], [place] [phone] Appointment Request Social History Tobacco Use Types [...] different date and time. Pt does speak serbian so you will need an service superintendent. documented in this encounter Plan of Treatment Upcoming Encounters Date Type Department Care Team (Late st Contact Info) Description 02/04/2025 11:30 AM EST Clinical Support [facility] [address] [place] [address] Opal Steiner, RN 02/08/2025 9:30 AM EST Medication Management [facility] [address] [place] [address] Katlyn Rodriguez, PharmD [address] [place] [address] 03/13/2025 11:30 AM EST Telemedicine [facility] [place] [address] Name, MD Kiel Jai Rivera [place] 04/10/2025 10:45 AM EST Office Visit [facility] [place] [phone] Name, MD Kiel Jai [place] documented as of this encounter Goals Goal [...] documented as of this encounter Care Teams Bdc Manager Relationship Specialty Start Date End Date Name, MD [facility] [place] [address] PCP - General Family Medicine 07/15/15 Puia, Katlyn, PharmD [facility] [place] [address] Pharmacist Internal Medicine 10/08/22 Nehal Ann, MARINA [address] [place] [address] Registered Nurse Family Medicine 08/20/24 10/29/24 Ania Spencer 08/20/24 11/26/24 Opal Carrasquillo Registered Nurse 10/29/24 11/26/24 Ania Spencer 12/14/24 12/26/24 Ania Spencer 01/09/25 01/25/25 Marta Ovalle [employer] RepConveyor Worker 05/25/23 documented as of this encounter
--- OUTSIDE RECORDS SUMMARY | 2025-01-30 04:47 | XMS_ITS | Encounter Summary ---
Author Organization [employer] Address [address] [place] [address] 7t [place] [address] Care Team Providers Care Threader Operator Name Role Phone Name, Kiel BAILEY Primary Care Provider [phone] Katlyn Rodriguez PharmD Unavailable Nehal Ann RN Unavailable Unavailable Ania Spencer Unavailable Opal Carrasquillo Unavailable Ania Spencer Unavailable Ania Spencer Unavailable Encounter Details Date Type Department Care Team (Late st Contact Info) Description 02/23/2022 Orders Only [facility] [address] [place], [place] [phone] Name, MD Kiel [address] [place], [place] [phone] Social History Tobacco Use Types Packs/Day Years [...] Description 02/04/2025 11:30 AM EST Clinical Support [address] [address] Opal Steiner, RN 02/08/2025 9:30 AM EST Medication Management [address] [address] Katlyn Rodriguez PharmD [address] [place] [address] 03/13/2025 11:30 AM EST Telemedicine [address] [address] NameKiel MD [address] [place] [address] 04/10/2025 10:45 AM EST Office Visit [address] [address] Name, MD Kiel [address] [place] [address] documented as of this encounter Visit Diagnoses Not on filedocumented in this encounter Care Teams Threader Operator Relationship Specialty Start Date End Date NameKiel MD [address] [place] [address] PCP - General Family Medicine 07/15/15 Katlyn Rodriguez, PharmD [address] [place] [address] Pharmacist Internal Medicine 10/08/22 Nehal Ann, MARINA [address] [place] [address] Registered Nurse Family Medicine 08/20/24 10/29/24 Ania Spencer 08/20/24 11/26/24 Opal Carrasquillo Registered Nurse 10/29/24 11/26/24 Ania Spencer 12/14/24 12/26/24 Ania Spencer 01/09/25 01/25/25 Marta Ovalle Judge ClerkCustomer Training Specialist 05/25/23 documented as of this encounter
--- OUTSIDE RECORDS SUMMARY | 2025-01-30 04:47 | XMS_ITS | Encounter Summary ---
Author Organization [employer] Address [address] [place] [address] 7t [place] [address] Care Team Providers Care Xerox Machine Assembler Name Role Phone Name, Kiel BAILEY Primary Care Provider [phone] Katlyn Rodriguez PharmD Unavailable Nehal Ann RN Unavailable Unavailable Ania Spencer Unavailable Opal Carrasquillo Unavailable Ania Spencer Unavailable Ania Spencer Unavailable Reason for Visit * Reason Comments Med Refill Encounter Details Date Type Department Care Team (Late st Contact Info) Description 06/28/2022 Refill [facility] 230 [place], [place] [phone] Name, MD Kiel 230 [place], [place] [phone] Chronic pain syndrome Social History Tobacco Use [...] Description 02/04/2025 11:30 AM EST Clinical Support [address] [address] Opal Steiner RN 02/08/2025 9:30 AM EST Medication Management [address] [address] Katlyn Rodriguez, PharmD [address] [place] [address] 03/13/2025 11:30 AM EST Telemedicine [address] [place] [address] Name, MD Kiel [address] [place] [address] 04/10/2025 10:45 AM EST Office Visit [address] [place] [address] Name, MD Kiel [address] [place] [address] documented as of this encounter Visit Diagnoses Diagnosis Chronic pain syndrome documented in this encounter Care Teams [employer]ox Machine Assembler Relationship Specialty Start Date End Date Name, MD Kiel [address] [place] [address] PCP - General Family Medicine 07/15/15 Katlyn Rodriguez, PharmD [address] [place] [address] Pharmacist Internal Medicine 10/08/22 Nehal Ann, MARINA [address] [place] [address] Registered Nurse Family Medicine 08/20/24 10/29/24 Ania Spencer 08/20/24 11/26/24 Opal Carrasquillo Registered Nurse 10/29/24 11/26/24 Ania Spencer 12/14/24 12/26/24 Ania Spencer 01/09/25 01/25/25 Marta Ovalle Javascript DeveloperRemedial Reading Teacher 05/25/23 documented as of this encounter
--- OUTSIDE RECORDS SUMMARY | 2025-01-30 04:47 | XMS_ITS | Encounter Summary ---
Author Organization [employer] Address [address] [facility] 7t [place] [address] Care Team Providers Care Showroom Consultant Name Role Phone Name, Kiel BAILEY Primary Care Provider [phone] Katlyn Rodriguez PharmD Unavailable Nehal Ann RN Unavailable Unavailable Ania Spencer Unavailable Opal Carrasquillo Unavailable Ania Spencer Unavailable Ania Spencer Unavailable Reason for Visit * Reason Comments Med Refill Encounter Details Date Type Department Care Team (Late st Contact Info) Description 06/08/[address] [facility] [address] [place], [place] [phone] Name, MD Kiel [address] [place] [address] Chronic pain syndrome Social History Tobacco Use [...] Description 02/04/2025 11:30 AM EST Clinical Support [address] [address] Opal Steiner RN 02/08/2025 9:30 AM EST Medication Management [address] [address] Katlyn Rodriguez, PharmD [address] [place] [address] 03/13/2025 11:30 AM EST Telemedicine [address] [address] Name, MD Kiel [address] [place] [address] 04/10/2025 10:45 AM EST Office Visit [address] [address] Name, MD Kiel [address] [place] [address] documented as of this encounter Goals Goal [...] documented as of this encounter Care Teams Showroom Consultant Relationship Specialty Start Date End Date Name, MD Kiel [address] [place] [address] PCP - General Family Medicine 07/15/15 Puia, Katlyn, PharmD [address] [place] [address] Pharmacist Internal Medicine 10/08/22 Nehal Ann, MARINA [address] [place] [address] Registered Nurse Family Medicine 08/20/24 10/29/24 Ania Spencer 08/20/24 11/26/24 Opal Carrasquillo Registered Nurse 10/29/24 11/26/24 Ania Spencer 12/14/24 12/26/24 Ania Spencer 01/09/25 01/25/25 Marta Ovalle Auto Air Conditioning ApprenticeBalance Staff Staker 05/25/23 documented as of this encounter
--- OUTSIDE RECORDS SUMMARY | 2025-01-30 04:47 | XMS_ITS | Encounter Summary ---
Author Organization [employer] Address 75 [facility] 7t [place] [address] Care Team Providers Care Cotton Classer Aide Name Role Phone Name, Kiel BAILEY Primary Care Provider [phone] Katlyn Rodriguez PharmD Unavailable Encounter Details Date Type Department Care Team ([facility] Contact Info) Description 01/28/2025 Orders Only [facility] [address] [place] [address] ProviderGlo MD Social History Tobacco Use Types Packs/Day [...] 02/04/2025 11:30 AM EST Clinical Support [address] [address] Opal Steiner RN 02/08/2025 9:30 AM EST Medication Management [address] [address] Katlyn Rodriguez, PharmD [address] [place] [address] 03/13/2025 11:30 AM EST Telemedicine [address] [address] NameKiel MD [address] [place] [address] 04/10/2025 10:45 AM EST Office Visit [address] [address] NameKiel MD [address] [place] [address] documented as of this encounter Goals Goal Patient Goal Type Associated Problems Recent Progress Patient-Stated? Author Record your blood pressure once per day Blood Pressure No Puia, Katlyn, PharmD Blood Pressure < 140/90 Blood Pressure 139/89(2024 11:46 AM EST) No PuiaReidKatlyn, PharmD Hemoglobin A1c [...] chronic kidney disease No Colon Phillips, Rosario Patient has chronic kidney disease Care Plan Patient has chronic kidney disease No Colon Phillips, Rosario Weekly blood pressure task Care Plan Weekly blood pressure task No Freedom Torolanda Weekly blood pressure task Care Plan Weekly blood pressure task No ToroFreedom ortegaLeny Patient has chronic kidney disease Care Plan Patient has chronic kidney disease No Toro, Leny Patient has chronic kidney disease Care Plan Patient has chronic kidney disease No Toro, Leny Weekly blood pressure task Care Plan Weekly blood pressure task No Opal Steiner RN Weekly blood pressure task Care Plan Weekly blood pressure task No Opal Steiner RN Patient has chronic kidney disease Care Plan Patient has chronic kidney disease No Opal Steiner RN Patient has chronic kidney disease Care Plan Patient has chronic kidney disease No Opal Steinre RN Weekly blood pressure task Care Plan Weekly blood pressure task No Opal Steiner RN Weekly blood pressure task Care Plan Weekly blood pressure task No Opal Steiner RN Patient has chronic kidney disease Care Plan Patient has chronic kidney disease No Opal Steiner, RN Patient has chronic kidney disease Care [...] Name Priority Date/Time Associated Diagnosis Comments CT ABDOMEN PELVIS W CONTRAST Routine 01/27/2025 documented in this encounter Results * CT Abdomen Pelvis w/ Contrast (01/27/2025) Anatomical Region Laterality Modality Body, Pelvis, Abdomen Computed T omography Historical Provider MD GARAY CT PROCEDURES Final R esult documented in this encounter Visit Diagnoses Not [...] as of this encounter Care Teams Cotton Classer Aide Relationship Specialty Start Date End Date Name, MD Kiel [address] [place] [address] PCP - General Family Medicine 07/15/15 Katlyn Rodriguez, AngieD [address] [place] [address] Pharmacist Internal Medicine 10/08/22 Marta Ovalle Pipe BenderDry Cell Assembly Supervisor 05/25/23 documented as of this encounter
--- OUTSIDE RECORDS SUMMARY | 2025-01-30 04:47 | XMS_ITS | Clinical Summary ---
Author Organization [facility] Address [address] [place] [address] Phone Care Team Providers Care Ore Buyer Name Role Phone Name, Kiel BAILEY Primary Care Provider [phone] Allergies Active Allergy Reactions Criticality Noted Date [...] supply, miscellaneous (MISCELLANEOUS MEDICAL SUPPLY [facility] ULTICARE SHORT PEN NEEDLES 31G X 8 MM USE FOUR TIMES DAILY TO INJECT insulin WITH A MEAL AND AT BEDTIME 06/23/19 16 Active blood sugar diagnostic (FreeStyle Lite Strips) test strip USE TO TEST FINGER STICK BLOOD SUGAR TWICE DAILY DIRECTED 06/23/19 16 Active medical supply, miscellaneous (MISCELLANEOUS MEDICAL SUPPLY MISC) [facility] DEVICES (COMMODE BEDSIDE) MIS 1 Device by Does not apply route as needed (voiding/bm). 12/11/19 15 Active ASPIRIN ORAL Take 1 Tab by mouth daily. 11/28/19 15 Active lancets (Sure Comfort Lancets) 30 gauge [facility] USE TO TEST FINGER STICK BLOOD SUGAR [...] 10/08/2009 Overview (12/12/2023): The patient follows with [facility] and is treated with [...] TOTAL HYSTERECTOMY WITH BSO; COMMENT: for bleeding, [facility] Medical History Medical History Date Comments Type II or unspecified type diabetes mellitus with unspecified complication, not stated as uncontrolled DX:Type II or unspecified t ype diabetes mellitus with unspecified complication, not stated as uncontrolled Unspecified essential hypertension DX:Unspecified essential hypertension Tobacco abuse DX:Tobacco abuse RAD (reactive airway disease) DX :RAD (reactive airway disease) Morbid obesity ([facility] V24, [facility] V28) DX:Morbid obesity ([facility]) Asthmatic bronchitis , chron ic ([facility] V24, [facility] V28) 07/07/2009 DX:Asthmatic bronchitis , ch ronic ([facility]) Hypertriglyceridemia 06/05/2009 DX:Hypertri glyceridemia Rib fracture [...] on file Sexual Orientation Not on file Last Filed Vital Signs [...] PM EST Office Visit [facility] [address] [address] Wesley Garcia, DPM [address] [address] Health Maintenance Due Date Last [...] 73m2 LAB CHEMISTRY METHOD 02/06/2024 3:36 AM [facility] Comment:Calculation based on the Chronic Kidney Disease Epidemiology Collaboration (CKD-EPI) equation refit without adjustment for race. BUN/Creatinine Ratio 23.9 LAB CHEMISTRY METHOD 02/06/2024 3:36 AM EST [facility] Calcium 9.3 8.5 - 10.5 mg/dL LAB CHEMISTRY METHOD 02/06/2024 3:36 AM EST [facility] Blood Venous blood specimen / Unknown Venipuncture / Unknown 02/06/2024 2:59 AM EST 02/06/2024 3:13 AM EST Cindy SEGURA LAB BLOOD ORDERABLES Final R esult [facility] ([facility]) [facility] [address] [place] [address], * (ABNORMAL) Hemoglobin A1c (11/20/2014) Pathologist [facility] Hemoglobin A1C 7.5(A) 4.0 - 6.0 % Blood Venous blood specimen / Unknown Result [facility] Provider LAB BLOOD ORDERABLES Alis l Result * Urine Albumin Creatinine Ratio (05/10/2014) Pathologist [facility] Urine Albumin Creatinine Ratio abstracted Result [facility] Provider HEALTH MAINTENANCE Final Result * (ABNORMAL) Lipid panel (05/10/2014) [facility] LDL/HDL Ratio 4 0 - 4 Triglycerides 360(A) 0 - 150 mg/dL Cholesterol 179 0 - 200 mg/dL HDL 42 >=40 mg/dL LDL Cholesterol 65 0 - 100 mg/dL Blood Venous blood specimen / Unknown Result [facility] Historical Provider LAB BLOOD ORDERABLES Alis l Result * Hepatitis C Screening (10/10/2013) Pathologist [facility] Hepatitis C Screening abstracted Result [facility] Historical Provider HEALTH MAINTENANCE Final Result from Last 3 Months or Most Recently Relevant to Health Maintenance Insurance MEDICAID - [place] Advance Directives * Full Code - Default [...] currently active code status orders. Care Teams Ore Buyer Relationship Specialty Start Date End Date Name, MD Kiel [address] [place], [place] PCP - General Internal Medicine 08/28/15
--- OUTSIDE RECORDS SUMMARY | 2025-01-30 04:47 | XMS_ITS | Encounter Summary ---
Author Organization [employer] Address [address] [place] [address] 7t [place] [address] Care Team Providers Care Email Marketing Processor Name Role Phone Name, Kiel BAILEY Primary Care Provider [phone] Katlyn Rodriguez PharmD Unavailable [phone] Nehal Ann RN Unavailable Unavailable Ania Spencer Unavailable Opal Carrasquillo Unavailable Ania Spencer Unavailable Ania Spencer Unavailable Reason for Visit * Reason Comments Med Refill Encounter Details Date Type Department Care Team (Late st Contact Info) Description 04/25/[address] [facility] [address] [place], [place] [phone] Name, MD Kiel [address] [place], [place] [phone] Diabetes mellitus type 2 in obese (CMS/HCC) [...] Description 02/04/2025 11:30 AM EST Clinical Support [address] [address] Opal Steiner RN 02/08/2025 9:30 AM EST Medication Management [address] [address] Katlyn Rodriguez PharmD [address] [place] [address] 03/13/2025 11:30 AM EST Telemedicine [address] [address] Name, MD Kiel [address] [place] [address] 04/10/2025 10:45 AM EST Office Visit [address] [address] Name, MD Kiel [address] [place] [address] documented as of this encounter Visit Diagnoses Diagnosis Diabetes mellitus type 2 in obese- Primary Type II or unspecified type diabetes mellitus without mention of complication, not stated as uncontrolled documented in this encounter Care Teams Email Marketing Processor Relationship Specialty Start Date End Date Name, MD Kiel [address] [place] [address] PCP - General Family Medicine 07/15/15 Katlyn Rodriguez PharmD [address] [place] [address] Pharmacist Internal Medicine 10/08/22 Nehal Ann RN [address] [place] [address] Registered Nurse Family Medicine 08/20/24 10/29/24 Ania Spencer 08/20/24 11/26/24 Opal Carrasquillo Registered Nurse 10/29/24 11/26/24 Ania Spencer 12/14/24 12/26/24 Ania Spencer 01/09/25 01/25/25 Marta Ovalle Tax AccountantRemedial Teacher 05/25/23 documented as of this encounter
--- OUTSIDE RECORDS SUMMARY | 2025-01-30 04:47 | XMS_ITS | Encounter Summary ---
Author Organization [employer] Address [address] [place] [address] 7[address] [place] [address] Care Team Providers Care Multi Township Assessor Name Role Phone Name, Kiel BAILEY Primary Care Provider [phone] Katlyn Rodriguez PharmD Unavailable Nehal Ann RN Unavailable Unavailable Ania Spencer Unavailable Opal Carrasquillo Unavailable [phone] Ania Spencer Unavailable Ania Spencer Unavailable Encounter Details Date Type Department Care Team (Late st Contact Info) Description 08/26/2022 Orders Only [facility] MEDICINE [address] [place] [address] Leia Gonzales LPN Social History Tobacco Use [...] Description 02/04/2025 11:30 AM EST Clinical Support [address] [phone] Opal Steiner RN 02/08/2025 9:30 AM EST Medication Management [address] [phone] Katlyn Rodriguez PharmD [address] [place] [address] 03/13/2025 11:30 AM EST Telemedicine [address] [phone] Kiel Shaffer MD [address] [place] [address] 04/10/2025 10:45 AM EST [facility] [address] [place] [phone] Name, MD Kiel [address] [place] [address] documented as of this encounter Visit Diagnoses Not on filedocumented in this encounter Additional Health Concerns Assessment Noted Time PHQ-9 Depression Total Score: 7 07/15/19 23 2:39 PM EDT documented as of this encounter Care Teams Multi Township Assessor Relationship Specialty Start Date End Date NameKiel MD [address] [place] [address] PCP - General Family Medicine 07/15/15 Katlyn Rodriguez PharmD [address] [place] [address] Pharmacist Internal Medicine 10/08/22 Nehal Ann, MARIAN [address] [place] [address] Registered Nurse Family Medicine 08/20/24 10/29/24 Ania Spencer 08/20/24 11/26/24 Opal Carrasquillo Registered Nurse 10/29/24 11/26/24 Ania Spencer 12/14/24 12/26/24 Ania Spencer 01/09/25 01/25/25 Marta Ovalle PhotogeologistHospitality Internship 05/25/23 documented as of this encounter
--- OUTSIDE RECORDS SUMMARY | 2025-01-30 04:48 | XMS_ITS | Encounter Summary ---
Author Organization [employer] Address [address] [place] [address] 7t [place] [address] Care Team Providers Care Die Stamper Name Role Phone Name, Kiel BAILEY Primary Care Provider Katlyn Rodriguez PharmD Unavailable [phone] Nehal Ann RN Unavailable Unavailable Ania Spencer Unavailable Opal Carrasquillo Unavailable Ania Spencer Unavailable Ania Spencer Unavailable Reason for Visit * Reason Onset Date Comments Durable Medical Equipment 01/24/2023 Encounter Details Date Type Department Care Team (Late st Contact Info) Description 01/24/2023 Telephone [facility] MEDICINE [address] [place], [place] [phone] Name, MD Kiel [address] [place] [address] Durable Medical Equipment Social History Tobacco Use [...] to errol. Any questions, contact pt at [phone] documented in this encounter Plan of Treatment Upcoming Encounters Date Type Department Care Team (Late st Contact Info) Description 02/04/2025 11:30 AM EST Clinical Support [address] [address] Opal Steiner, RN 02/08/2025 9:30 AM EST Medication Management [address] [address] Katlyn Rodriguez, AngieD [address] [place] [address] 03/13/2025 11:30 AM EST Telemedicine [address] [address] Name, MD Kiel [address] [place] [address] 04/10/2025 10:45 AM EST Office Visit [facility]INE [address] [facility] [place] [address] Name, MD Kiel Jai [facility] [place] [address] documented as of this encounter Goals Goal [...] documented as of this encounter Care Teams Die Stamper Relationship Specialty Start Date End Date Name, [place] [address] PCP - General Family Medicine 07/15/15 Puia, Katlyn, [place] [address] Pharmacist Internal Medicine 10/08/22 Nehal Ann, MARINA [address] [place] [id number] Registered Nurse Family Medicine 08/20/24 10/29/24 Ania Spencer 08/20/24 11/26/24 Opal Carrasquillo Registered Nurse 10/29/24 11/26/24 Ania Spencer 12/14/24 12/26/24 Ania Spencer 01/09/25 01/25/25 Marta Ovalle Gas Meter ReaderAssistant Real Estate Manager 05/25/23 documented as of this encounter
--- OUTSIDE RECORDS SUMMARY | 2025-01-30 04:48 | XMS_ITS | Encounter Summary ---
Author Organization [employer] Address [address] [place] [address] 7t [place] [address] Care Team Providers Care Jewel Sorter Name Role Phone Name, Kiel BAILEY Primary Care Provider [phone] Katlyn Rodriguez PharmD Unavailable [phone] Nehal Ann RN Unavailable Unavailable Ania Spencer Unavailable Opal Carrasquillo Unavailable [phone] Ania Spencer Unavailable Ania Spencer Unavailable Reason for Referral * Consultation (Routine) - Closed Specialty Diagnoses / Procedures Referred By Contremy t Referred To Contact Occupational Therapy Diagnoses Weakness of both lower extremities Hemiparesis of left dominant side as late effect of cerebral infarction (CMS/HCC) (HCC) Lizzie Alfaro NP [address] [place] [address] Phone: tel: fax: [facility] Physical Therapy [address] [place] [address] Phone: tel: fax: Referral ID Status Reason Start Date Expiration Date V isits Requested Visits Authorized [id number] Closed Specialty Services Required 09/06/2024 09/06/2025 20 20 * Consultation (Routine) - Closed Specialty Diagnoses / Procedures Referred By Contremy hoover Referred To Contact Physical Therapy Diagnoses Weakness of both lower extremities Lizzie Alfaro NP [address] [place] [address] Phone: tel: fax: [facility] Physical Therapy [address] [place], [place] Phone: tel: fax: Referral ID Status Reason Start Date Expiration Date V isits Requested Visits Authorized [id number] Closed Specialty Services Required 09/06/2024 09/06/2025 20 20 Encounter Details Date Type Department Care Team (Late st Contact Info) Description 09/06/2024 Orders Only [facility] MEDICINE [address] [place], [place] [phone] Lizzie Alfaro NP [address] [place], [place] [phone] Weakness of both lower extremities (Primary Dx); [...] 02/04/2025 11:30 AM EST Clinical Support [address] [address] Opal Steiner RN 02/08/2025 9:30 AM EST Medication Management [address] [address] Katlyn Rodriguez, PharmD [address] [place] [address] 03/13/2025 11:30 AM EST Telemedicine [address] [address] Kiel Shaffer MD [address] [place] [address] 04/10/2025 10:45 AM EST Office Visit [address] [address] NameKiel MD [address] [place] [phone] Scheduled Referrals Name Type Priority Associated Diagnoses [...] side as late effect of cerebral infarction ([facility]) ([facility]) documented in this encounter Additional Health Concerns Assessment Noted Time PHQ-9 Depression Total Score: 7 09/05/19 11:46 AM EDT documented as of this encounter Care Teams Jewel Sorter Relationship Specialty Start Date End Date Name, MD Kiel [address] [place] [address] PCP - General Family Medicine 07/15/15 Katlyn Rodriguez, PharmD [address] [place] [address] Pharmacist Internal Medicine 10/08/22 Nehal Ann, MARINA [address] [place] [phone] Registered Nurse Family Medicine 08/20/24 10/29/24 Ania Spencer 08/20/24 11/26/24 Opal Carrasquillo Registered Nurse 10/29/24 11/26/24 Ania Spencer 12/14/24 12/26/24 Ania Spencer 01/09/25 01/25/25 Marta Ovalle Business MgrControl Clerk Subassembly 05/25/23 documented as of this encounter
--- OUTSIDE RECORDS SUMMARY | 2025-01-30 04:48 | XMS_ITS | Encounter Summary ---
Author Organization [facility] Address [address] [place] [address] Phone Care Team Providers Care Hand Ornament Maker Name Role Phone Unavailable Primary Care Provider Unavailabl e Encounter Details Date Type Department Care Team (Latest Contact Info) Description 01/04/2020 Ancillary Orders [facility] [address] [place] [address] [place] [address] Bright Jesus, DO [address] [place] [address] Chest pain, unspecified type Social History Tobacco [...] not the complete legal health record.[facility]
--- OUTSIDE RECORDS SUMMARY | 2025-01-30 04:48 | XMS_ITS | Encounter Summary ---
Author Organization [facility] Address [address] [place] [address] Phone Care Team Providers Care Retail Route Supervisor Name Role Phone Unavailable Primary Care Provider Unavailabl e Encounter Details Date Type Department Care Team (Late st Contact Info) Description 01/04/2020 Procedure Pass [facility] [address] [place] [address] [place], [place] [phone] Social History Tobacco Use Types Packs/Day Years [...] It is not the complete legal health record.[facility]
--- OUTSIDE RECORDS SUMMARY | 2025-01-30 04:48 | XMS_ITS | Clinical Summary ---
Author Organization [employer] Address [address] [place] [address] 7[address] [place] [address] Care Team Providers Care Air Quality Engineer Name Role Phone Name, Kiel BAILEY Primary Care Provider [phone] PuKatlyn albert PharmD Unavailable [phone] Allergies Active Allergy Reactions Criticality Noted [...] bedtime. 45 tablet 3 05/09/19 25 Active Tirzepatide (Mounjaro) 15 MG/0.5ML solution auto-injectorIn [...] tablet 3 09/13/19 25 Active TechLite Pen [place] 32G X 4 MM miscIndications :Type 2 [...] use of insulin ([facility]),Hypertrig lyceridemia TAKE 2 CAPSULES BY MOUTH TWICE [...] use of insulin ([facility]) Inject 50 Units under the skin at bedtime. 15 mL 1 01/10/20 25 Active rosuvastatin (Crestor) 40 MG tabletIndicatio ns:Type 2 diabetes mellitus with other specified complication, with long-term current use of insulin ([facility]),Tobacco use disorder,Histor y of stroke,Hypertri glyceridemia Take 1 tablet (40 mg) by mouth Once per day. 90 tablet 1 01/10/20 25 Active ibuprofen 600 MG tablet Take 1 tablet (600 mg) by mouth every 8 (eight) hours if needed for mild pain for up to 20 days. 60 tablet 5 1:00 PM EST 01/11/20 25 025 Active Ventolin HFA 108 (90 Base) MCG/ACT inhalerIndicati ons:Moderate asthma with exacerbation, unspecified whether persistent INHALE 2 PUFFS BY MOUTH EVERY 4 TO 6 HOURS NEEDED FOR WHEEZING 18 g 5 01/22/20 25 Active Icosapent Ethyl (Vascepa) 1 g capsuleIndicati ons:Type 2 diabetes mellitus with other specified complication, with long-term current use of insulin ([facility]),Hypertrig lyceridemia Take 2 capsules (2 g) by mouth with breakfast and with evening meal. 360 capsule 3 02/02/20 24 025 Discontinued albuterol 108 (90 Base) MCG/ACT inhalerIndicati ons:Moderate asthma with exacerbation, unspecified whether persistent Inhale 2 puffs Every 4-6 hours as needed for wheezing. 18 g 5 5 10:57 AM EST 06/08/19 25 025 Discontinued rosuvastatin (Crestor) 40 MG tabletIndicatio [...] ONCE DAILY 30 tablet 11 09/13/19 25 025 Discontinued(T herapy completed) lidocaine (Lidoderm) 5 % patchIndication s:Nondisplaced fracture of right radial styloid process, initial encounter for closed fracture Apply 1 patch topically Once per day. Remove & discard patch within 12 hours or as directed by . 30 patch 1 10/10/19 25 025 Discontinued insulin glargine (Lantus SoloStar) 100 UNIT/ML penIndications: Type 2 diabetes mellitus with other specified complication, with long-term current use of insulin ([facility]) Inject 46 Units under the skin at bedtime. 11/28/19 25 025 Discontinued(R eorder (will not trigger [...] eddi as late effect of cerebrovascular accident ([facility]) 11/01/2024 Assessment & Plan (11/01/2024 [...] to the hospital Case was presented to [facility] emergency room Hemiparesis of left dominant side ([facility]) 07/23 Assessment & Plan (08/17/2024 1:36 PM EDT): Patient will benefit from PT evaluation and after evaluation at the hospital to be referred to acute PT center Cerebrovascular accident (CVA) ([facility]) 025 History of stroke 07/30/2024 Cerebellar mass 06/28/2024 Chronic, continuous use of opioids 11/29/2023 Overview (11/29/2023): Dx: OA knee Tx: oxycodone 10mg BID INTEL RECRUITER last signed: 05/03/23 Chronic pain syndrome 05/03/2023 [...] I presented the case to [facility] emergency room, patient will go by [...] EST): Pt reports [place] of confusion in [facility], declines neuro referral today, reviewed s.s [...] tolerate CPAP On nocturnal oxygen Follows with [facility] pulmonary ([place]aj[place]) Cocaine abuse, episodic use (CMS/HCC) [...] for Paxlovid sent to the pharmacy -Utilized [place] drug interaction coloring checker to assess interactions with current med [...] 06/28/2024 Pancytopenia 04/18/2018 06/28/2024 Simple chronic bronchitis ([facility]) 04/18/2018 06/28/2024 Overview (07/14/2022): Severe and worse in the spring. Last hospitalazion in May and 3 ER visits Hospital 08/02 Acute exacerbation of chroni c obstructive airways disease with asthma ([facility]) 01/02/2018 Seizure ([facility]) 11/18/2017 06/28/2024 Anterior knee pain 10/20/2016 Mesenteric [...] Encounters Date Type Department Care Team Description 01/29/2025 Orders Only GENERIC EXTERNAL DATA DEPARTMENT Provider, Generic External Data 01/28/2025 Orders Only [facility] Information Management [address] [place], [place] [id number] Provider, MD Glo 01/28/2025 Telephone [facility] [address] [place] [address] Name, MD Kiel 01/25/2025 Patient Outreach [facility] [address] [place] [address] Kiel Shaffer MD Care Coordination (Communication to pts assigned CP Coordinator ) 01/23/[address] [address] Opal Steiner, MARINA INTEL RECRUITER Tier 3 / Tele 01/22/[address] [address] Kiel Shaffer MD Durable Medical Equipment 01/22/[address] [address] Kiel Shaffer MD Nurse Triage 01/18/[address] [address] Kiel Shaffer MD Moderate asthma with exacerbation, unspecified whether persistent 01/10/2025 11:30 AM EST Office Visit [address] [address] Kiel Shaffer MD Hemiparesis of left dominant side as late effect of cerebrovascular disease, unspecified cerebrovascular disease type (CMS/HCC) (HCC) (Primary Dx); Cerebrovascular accident (CVA), unspecified mechanism (CMS/HCC) (HCC); Abnormal MRI of the head; Type 2 diabetes mellitus with other specified complication, with long-term current use of insulin (HCC) 01/10/2025 Travel 01/10/2025 Patient Outreach [address] [address] Renetta Power, MARINA 01/09/[address] [address] Renetta Power, RN 01/09/[address] [address] Kiel Shaffer MD Chart Prep 01/09/2025 Patient Outreach [facility] [address] [place] [address] Kiel Shaffer MD Care Coordination (Former[facility] ED Follow Up) 01/09/2025 Travel 01/09/2025 Patient Outreach [address] [address] Kiel Shaffer MD 01/08/2025 Orders Only GENERIC EXTERNAL DATA DEPARTMENT Provider, Generic External Data 01/08/2025 Refill [facility] [address] [place] [address] Anisha Gonzalez, GERARDO Cerebellar mass; Chronic intractable headache, unspecified headache type 01/06/2025 Refill [facility] [address] [place] [address] Katlyn Rodriguez PharmD Type 2 diabetes mellitus with other specified complication, with long-term current use of insulin (HCC); Hypertriglyceridemia 12/30/2024 Refill [facility] [address] [address] Sarita Baker MD Nondisplaced fracture of right radial styloid process, initial encounter for closed fracture 12/26/2024 Patient Outreach [facility] [address] [place] [address] Kiel Shaffer MD Care Coordination (Communication to pt assigned CP Coordinator) 12/26/2024 Refill [facility] [address] [place] [address] Kiel Shaffer MD 12/25/2024 Orders Only GENERIC EXTERNAL DATA DEPARTMENT Provider, Generic External Data 12/25/2024 Telephone [facility] [address] [place] [address] Kiel Shaffer MD FYI 12/24/2024 10:40 AM EST [facility] [address] [address] Victorino Graves MD Acute pain of left shoulder (Primary Dx); Injury of left shoulder, subsequent encounter; Left-sided weakness 12/24/2024 Telephone [facility] [address] [place] [address] Kiel Shaffer MD Results (Pt requesting wheelchair , pt stated she's falling too much. ) 12/24/2024 Travel 12/14/2024 Telephone [facility] [address] [place] [address] Elsie Hall, AUTOMATIC TIRE TESTER Follow-up 12/14/2024 Patient Outreach [facility] [address] [place] [address] Kiel Shaffer MD Care Coordination (CP Care Coordination Chart Review) 12/14/2024 Patient Outreach [facility] [address] [place] [address] Kiel Shaffer MD Care Coordination ([facility] ED Follow up) 12/14/2024 Patient Outreach [address] [address] Kiel Shaffer MD 12/13/2024 10:40 AM EDT Office Visit [facility] [address] [address] Lorenzo Chavez MD Acute pain of left shoulder (Primary Dx); Acute pain of right knee; Nondisplaced fracture of right radial styloid process, subsequent encounter for closed fracture with delayed healing 12/13/2024 Travel 12/13/2024 Refill [facility] [address] [place] [address] Kiel Shaffer MD Cerebellar mass; Chronic intractable headache, unspecified headache type 12/10/2024 Refill [facility] [address] [address] Kiel Shaffer MD 12/07/2024 Refill [facility] [address] [place] [address] Kiel Shaffer MD Cerebellar mass; Chronic intractable headache, unspecified headache type 11/30/2024 Orders Only [address] [address] Kiel Shaffer MD 11/27/2024 Travel 11/26/2024 Travel 11/26/2024 Patient Outreach [address] [address] Kiel Shaffer MD Care Management ([facility] TC #3-case closed) 11/15/2024 11:30 AM EDT Clinical Support [address] [address] Opal Steiner, RN Long-term current use of opiate analgesic (Primary Dx) 11/15/[address] [address] Opal Steiner RN Cerebellar mass; Chronic intractable headache, unspecified headache type; Long-term current use of opiate analgesic 11/15/2024 Travel 11/12/[address] [place] [address] Barbara Martinez [place] 11/12/[address] [address] Barbara Martinez [place] DECEMBER RECALLS 11/08/2024 Results Follow-Up [facility] [address] [place] [address] Lorenzo Chavez MD XR Hand 3+ Views Left 11/08/2024 Travel 11/06/2024 5:00 PM EDT Office Visit [facility] [place] [address] Lorenzo Chavez MD Swelling of left hand (Primary Dx) 11/06/2024 Travel 11/02/2024 Results Follow-Up [address] [address] Sarita Baker MD XR Shoulder 2+ Views Left 11/01/2024 1:00 PM EDT Office Visit [address] [address] Sarita Baker MD Acute bilateral low back pain without sciatica; Acute pain of left shoulder; Bilateral hand pain; Hemiparesis affecting left side as late effect of cerebrovascular accident ([facility]) 11/01/2024 Travel 11/01/[address] [address] Kiel Shaffer MD Nurse Triage from Last 3 Months Immunizations Immunization Administration Dates Next Due HepB-CpG 11/05/2022,10/08/2022 Influenza Injectable Quadriv alant Preservative Free IIV4 MDCK 11/05/2022 Influenza Whole 11/06/2010 Influenza injectable quadriv alent IIV4 with preservative 01/09/2016 Influenza injectable quadriv alent preservative free 11/13/2021,01/21/2021,01/07/2020,12/13,01/30/2018 Influenza, IIV3, injectable 02/03/2016,1 ,12/16/2013,02/23,11/02/2012,10/26/2011,01/13/2011 ,11/03/2010,11/21/2009 Influenza, seasonal, injecta ble, preservative free 11/27/2024,11/29/2023 Novel [id number], all formulations 05/31/2009 Pneumococcal Conjugate PCV 20 [...] Description 02/04/2025 11:30 AM EST Clinical Support [address] [address] Opal Steiner RN 02/08/2025 9:30 AM EST Medication Management [address] [address] Katlyn Rodriguez, PharmD [address] [place] [address] 03/13/2025 11:30 AM EST Telemedicine [address] [address] Name, MD Kiel [address] [place] [address] 04/10/2025 10:45 AM EST Office Visit [facility] [address] [facility] [place] [address] Name, MD Kiel [address] [facility] [place] [address] Health Maintenance Due Date Last Done Comments [...] Additional history exists Eye Exam 12/16/2024 12/17/2023, 04/06/2022, 03/14/2012 Diabetes: Hemoglobin A1C 04/11/2025 025, 10/02/2024, 06/28/2024, Additional history exists Mammogram 06/02/2025 06/03/2023, 01/03/2019 Alcohol/Substance Use Screening 06/28/2025 06/28/2024 SDOH Screening 2025 2024 Depression Screening 09/04/2025 09/04/2024, 09/05/19 25 Disability Screening 11/26/2025 11/26/2024 Lipid Panel 11/30/2025 11/30/2024, 05/23, 10/25/2023, Additional history exists Tobacco Screening 01/10/2026 [...] Plan Patient has chronic kidney disease No PuiaKatlyn, PharmD Weekly blood pressure task Care Plan [...] Weekly blood pressure task No Renetta Power, RN Patient has chronic kidney disease Care [...] blood pressure task No Colon Rosario Phillips Weekly blood pressure task Care Plan Weekly blood pressure task No Colon Phillips Rosario Patient has chronic kidney disease Care Plan Patient has chronic kidney disease No Colon Phillips, Rosario Patient has chronic kidney disease Care Plan Patient has chronic kidney disease No Colon Alan Rosario Weekly blood pressure task Care Plan Weekly blood pressure task No ToroFreedom ortegaLeny Weekly blood pressure task Care Plan Weekly blood pressure task No ToroFreedom ortegaLeny Patient has chronic kidney disease Care Plan Patient has chronic kidney disease No Freedom Torolanda Patient has chronic kidney disease Care Plan [...] Weekly blood pressure task No Katarzyna Toroa Patient has chronic kidney disease Care Plan Patient has chronic kidney disease No Leny Toro Patient has chronic kidney disease Care Plan Patient has chronic kidney disease No Leny Toro Procedures Procedure Name Priority Date/Time Associated Diagnosis Comments CT CHEST WO CONTRAST Routine 01/29/2025 9:[address] HEAD WO CONTRAST Routine 01/29/2025 9 :28 PM EST URINALYSIS WITH REFLEX MICROSCOPIC Routine 01/29/2025 9:27 PM EST SARS COV2/INFLUENZA A/B AND RSV RNA QL NAAT Routine 01/29/2025 9:[address] ABDOMEN PELVIS WO CONTRAST Routine 01/29/2025 9:[address] CERVICAL SPINE WO CONTRAST Routine 01/29/2025 9:21 PM EST CREATINE KINASE, TOTAL Routine 8:05 PM EST MAGNESIUM Routine 01/29/2025 8:05 PM EST COMPREHENSIVE METABOLIC PANEL Routine 01/29/2025 8:05 PM EST CBC WITH AUTO DIFFERENTIAL Routine 01/29/2025 8:[address] ABDOMEN PELVIS W CONTRAST Routine 01/27/2025 POCT GLUCOSE Routine 01/10/2025 11:48 AM EST [...] of insulin ([facility]) Rib pain on left side HM COLONOSCOPY Routine 07/01/2022 4:37 PM EDT DIABETES EYE EXAM Routine 05/26/2022 from Last 3 Months or Most Recently Relevant to Health Maintenance Results * CT Chest w/o Contrast (01/29/2025 9:31 PM EST) Anatomical Region Laterality Modality Body, Chest Computed Tomogra phy 01/29/2025 9:31 PM EST Narrative 01/29/2025 9:32 PM EST [place] [address] CT Scan Report Signed Patient: Sarita Puga MR#: [id number] 92 : 1965 Acct:[id number] Age/Sex: 59 / F ADM Date: 01/29/25 Loc: HO.ED Attending Dr: Ordering Physician: Brown Blair Date of Service: 01/29/25 Procedure(s): CT chest wo IV con Accession Number(s): [id number] cc: Brown Blair; Name,Kiel BAILEY Report Number: [id number]: Total DLP = 457.00 mGy-cm Reason for [...] in OV> 01/29/252130 DD/ 30 TD/TT: 01/29/252130 Cam Milling Machine Operator: Procedure Note Donotuseinterpreter, Image - 01/29/[address] [place] [address] [address] Scan Report Signed Patient: Sarita Puga MMR#: [id number] 92 : 1965Acct:[id number] Age/Sex: 59 / FADM Date: 01/29/25 Loc: HO.ED Attending Dr: Ordering Physician: Brown Blair Date of Service: 01/29/25 Procedure(s): CT chest wo IV con Accession Number(s): [id number] cc: Brown Blair; Name,Kiel BAILEY Report Number: [id number]: Total DLP = 457.00 mGy-cm Reason for [...] Nguyen MD Signed By: <Electronically signed by Lius Nguyen MD in OV> 01/29/252130 DD/ 30 TD/TT: 01/29/252130 Cam Milling Machine Operator: [facility] External Provider IMG CT PROCEDURES Edited Result - Final * CT Head w/o Contrast (01/29/2025 9:28 PM EST) Anatomical Region Laterality Modality Head, Neck Computed Tomogra phy 01/29/2025 9:28 PM EST Narrative 01/29/2025 9:30 PM EST [address] [address] [address] Scan Report Signed Patient: Sarita Puga MR#: [id number] 92 : 1965 Acct:[id number] Age/Sex: 59 / F ADM Date: 01/29/25 Loc: HO.ED Attending Dr: Ordering Physician: Brown Blair Date of Service: 01/29/25 Procedure(s): CT head/brain wo IV con Accession Number(s): [id number] cc: Brown Blair; Name,Kiel BAILEY Report Number: [id number]: Total DLP = 1286.00 mGy-cm Reason for [...] in OV> 01/29/252129 DD/ 27 TD/TT: 01/29/252127 Cam Milling Machine Operator: Procedure Note Donotuseinterpreter, Image - 01/29/[address] [address] [address] Scan Report Signed Patient: Sarita Puga MMR#: [id number] 92 : 1965Acct:[id number] Age/Sex: 59 / FADM Date: 01/29/25 Loc: HO.ED Attending Dr: Ordering Physician: Brown Blair Date of Service: 01/29/25 Procedure(s): CT head/brain wo IV con Accession Number(s): [id number] cc: Brown Blair; Name,Kiel BAILEY Report Number: [id number]: Total DLP = 1286.00 mGy-cm Reason for [...] in OV> 01/29/252129 DD/ 27 TD/TT: 01/29/252127 Cam Milling Machine Operator: [facility] External Provider IMG CT PROCEDURES Edited Result - Final * SARS-CoV-2 RNA, Influenza A/B, and RSV RNA, Ql NAAT (01/29/2025 9:27 PM EST) Only the most recent of2 resultswithin the time period is included. Influenza A PCR NEGATIVE Negative [facility] Influenza B PCR NEGATIVE Negative [facility] Resp Syncy Virus RNA Qual PCR NEGATIVE Negative [facility] SARS COV2 PCR NEGATIVE Negative [facility] Comment:All test results mus t [...] use by authorized laboratories.Testing performed on the [employer] GeneXpert utilizingreal-time RT-PCR.All SARS CoV2 and positive influenza A/B results arereported to [facility]. 01/29/2025 9:27 PM EST 01/29/2025 9:33 PM EST us Generic External Data Provider LAB MICROBIOLOGY - GENERAL ORDERABLES Final Result Performing Organization Address [facility] Co de Phone Number [facility] [address] [place] [phone] * Urinalysis w/reflex microscopic (01/29/2025 9:27 PM EST) Color Urine Yellow [facility] Appearance Urine Clear [facility] PH 6.5 5.0 - 9.0 [facility] Glucose Urine UA Negative Negative mg/dL [facility] Urine Blood Negative Negative [facility] Specific [place] - Urine 1.020 1.005 - 1.025 [facility] Urine Protein Negative Neg-Trace mg/dL [facility] Urine Ketones Negative Negative mg/dL [facility] Nitrite Urine Negative Negative [facility] Leukocyte Esterase Urine Negative Negative [facility] 01/29/2025 9:27 PM EST 01/29/2025 9:33 PM EST Narrative [facility] - 01/29/2025 9:42 PM EST Urine, Clean Catch Generic External Data Provider LAB URINE ORDERAB LES Final Result Performing Organization Address [facility] Co de Phone Number [facility] [address] [place] [phone] * CT Abdomen Pelvis w/o Contrast (01/29/2025 9:24 PM EST) Anatomical Region Laterality Modality Body, Pelvis, Abdomen Computed T omography 01/29/2025 9:24 PM EST Narrative 01/29/2025 9:25 PM EST [address] [address] [address] Scan Report Signed Patient: Sarita Puga MR#: [id number] 92 : 1965 Acct:[id number] Age/Sex: 59 / F ADM Date: 01/29/25 Loc: .ED Attending Dr: Ordering Physician: Brown Blair Date of Service: 01/29/25 Procedure(s): CT abdomen pelvis wo IV con Accession Number(s): [id number] cc: Brown Blair; Name,Kiel BAILEY Report Number: [id number]: Total DLP = 994.00 mGy-cm Reason for [...] in OV> 01/29/252123 DD/ 23 TD/TT: 01/29/252123 Cam Milling Machine Operator: Procedure Note Donotuseinterpreter, Image - 01/29/[address] [place] [address] [address] Scan Report Signed Patient: Sarita Puga [facility]#: [id number] 92 : 1965Acct:[id number] Age/Sex: 59 / FADM Date: 01/29/25 Loc: HO.ED Attending Dr: Ordering Physician: Brown Blair Date of Service: 01/29/25 Procedure(s): CT abdomen pelvis wo IV con Accession Number(s): [id number] cc: Brown Blair; Kiel Shaffer MD Report Number: [id number]: Total DLP = 994.00 mGy-cm Reason for [...] in OV> 01/29/252123 DD/ 23 TD/TT: 01/29/252123 Cam Milling Machine Operator: [facility] External Provider IMG CT PROCEDURES Edited Result - Final * CT Cervical Spine w/o Contrast (01/29/2025 9:21 PM EST) Anatomical Region Laterality Modality Spine, C-spine Computed Tomogra phy 01/29/2025 9:21 PM EST Narrative 01/29/2025 9:22 PM EST [place] [address] CT Scan Report Signed Patient: Sarita Puga MR#: [id number] 92 : 1965 Acct:[id number] Age/Sex: 59 / F ADM Date: 01/29/25 Loc: .ED Attending Dr: Ordering Physician: Brown Blair Date of Service: 01/29/25 Procedure(s): CT cervical spine wo IV con Accession Number(s): [id number] cc: Brown Blair; Name,Kiel BAILEY Report Number: [id number]: Total DLP = 478.00 mGy-cm Reason for [...] in OV> 01/29/252120 DD/ 20 TD/TT: 01/29/252120 Cam Milling Machine Operator: Procedure Note Donotuseinterpreter, Image - 01/29/[address] [place] [address] [address] Scan Report Signed Patient: Sarita Puga MMR#: [id number] 92 : 1965Acct:[id number] Age/Sex: 59 / FADM Date: 01/29/25 Loc: HO.ED Attending Dr: Ordering Physician: Brown Blair Date of Service: 01/29/25 Procedure(s): CT cervical spine wo IV con Accession Number(s): [id number] cc: Brown Blair; Name,Kiel BAILEY Report Number: [id number]: Total DLP = 478.00 mGy-cm Reason for [...] in OV> 01/29/252120 DD/ 20 TD/TT: 01/29/252120 Cam Milling Machine Operator: [facility] External Provider IMG CT PROCEDURES Edited Result - Final * (ABNORMAL) CBC auto differential (01/29/2025 8:05 PM EST) Only the most recent of3 resultswithin the time period is included. White Blood Count 6.2 4.8 - 10.8 X10*3/uL [facility] Red Blood Count 4.46 4.20 - 5.50 X10*6/uL [facility] Hemoglobin 12.1 12.0 - 16.0 g/dl [facility] Hematocrit 37.3 37.0 - 47.0 % [facility] Mean Corpuscular Volume 83.6 80.0 - 98.0 fL [facility] Mean Corpuscular Hemoglobin 27.1 27.0 - 33.0 pg [facility] Mean Corpuscular HGB Conc 32.4 31.0 - 35.0 g/dl [facility] Red Cell Distribution Width 12.9 11.0 - 16.0 % [facility] Platelet Count 135(L) 160 - 400 X10*3/uL [facility] Mean Platelet Volume 11.9 9.4 - 12.3 fL [facility] Neutrophils Percent Auto 54.8 45 - 73 % [facility] Imm Gran Pct Auto 0.2 0.0 - 0.4 % [facility] Lymphocytes Percent Auto 36.1 20 - 40 % [facility] Monocytes Percent Auto 6.1 2 - 11 % [facility] Eosinophils Percent Auto 1.8 0 - 4 % [facility] Basophils Percent Auto 1.0 0 - 2 % [facility] NRBC Pct Auto 0.0 0.0 - 0.2 /100WBC [facility] Neutrophils Absolute Auto 3.4 2.0 - 8.3 x10*3/uL [facility] Imm Gran Abs Auto 0.01 0.00 - 0.03 X10*3/uL [facility] Lymphocytes Absolute Auto 2.2 1.2 - 4.9 X10*3/uL [facility] Monocytes Absolute Auto 0.4 0.1 - 1.2 X10*3/uL [facility] Eosinophils Absolute Auto 0.1 0.0 - 0.4 X10*3/uL [facility] Basophils Absolute Auto 0.1 0.0 - 0.2 X10*3/uL [facility] NRBC Abs Auto 0.000 0.0 - 0.012 X10*3/uL [facility] 01/29/2025 8:05 PM EST 01/29/2025 8:08 PM EST Generic External Data Provider LAB BLOOD ORDERAB LES Final Result Performing Organization Address [facility] Co de Phone Number [facility] [address] [place] [phone] * Magnesium (01/29/2025 8:05 PM EST) Only the most recent of2 resultswithin the time period is included. Magnesium 1.9 1.6 - 2.6 mg/dL [facility] 01/29/2025 8:05 PM EST 01/29/2025 8:08 PM EST Generic External Data Provider LAB BLOOD ORDERAB LES Final Result Performing Organization Address [facility] Phone Number [facility] [address] [place] [phone] * Creatine Kinase, Total (01/29/2025 8:05 PM EST) Pathologist [facility] Creatine Kinase Total 41 26 - 140 U/L [facility] 01/29/2025 8:05 PM EST 01/29/2025 8:08 PM EST Generic External Data Provider LAB BLOOD ORDERAB LES Final Result Performing Organization Address [facility] de Phone Number [facility] [address] [place] [phone] * (ABNORMAL) Comprehensive Metabolic Panel (01/29/2025 8:05 PM EST) Only the most recent of2 resultswithin the time period is included. Sodium 141 135 - 145 mmol/L [facility] Potassium 3.8 3.3 - 5.1 mmol/L [facility] Chloride 107 96 - 108 mmol/L [facility] Carbon Dioxide 26 22 - 29 mmol/L [facility] Anion Gap 12 12 - 20 [facility] Urea Nitrogen (BUN) 15 9 - 16 mg/dL [facility] Creatinine, Serum 0.79 0.5 - 1.4 mg/dL [facility] Creatinine Clr Calc Pharmacy 89.8 [facility] Comment:Provided height and weight: 160.02 cm,107.048 kg.eGFR (calculated from the MDRD study equation) and eCrCl(calculated from the Cockcroft-Gault equation) are based ondifferent parameters and may not yield comparable results.If eCrCl result is absurd, please check patient'sheight/weight. Estimated Glomerular Filt Rate >60 [facility] Comment:Chronic Kidney Disea se: Estimated GFR < 60 mL/min/1.15r1Tcwcky Kidney Disease: Estimated GFR < 15 mL/min/1.73m2 Glucose 154(H) 60 - 115 mg/dL [facility] Calcium 9.1 8.4 - 10.2 mg/dL [facility] Bilirubin, Total 0.2 0.0 - 1.0 mg/dL [facility] Aspartate Amino Transferase 13 5 - 31 U/L [facility] Alanine Aminotransferase 21 0 - 31 U/L [facility] Total Protein 6.2(L) 6.5 - 8.0 g/dL [facility] Albumin Level 3.9 3.5 - 5.0 g/dL [facility] Alkaline Phosphatase 73 39 - 117 U/L [facility] 01/29/2025 8:05 PM EST 01/29/2025 8:08 PM EST us Generic External Data Provider LAB BLOOD ORDERAB LES Final Result [facility] [address] [place] [address] [phone] * CT Abdomen Pelvis w/ Contrast (01/27/2025) Anatomical Region Laterality Modality Body, Pelvis, Abdomen Computed T omography Historical Provider IMG CT PROCEDURES Final R esult * (ABNORMAL) POCT Glucose (01/10/2025 11:48 AM EST) Pathologist [facility] Glucose Blood, POC 270(A) 60 - 200 mg/dL Comment:[employer] Media Lot # [id number] Lot# Expiration Date ,592,838 Blood Capillary blood specimen / Unknown 01/10/2025 11:48 AM EST Kiel Name POINT OF CARE TEST ENTER/EDIT OR DERABLES Final Result * (ABNORMAL) POCT Hgb A1c (01/09/2025 1:16 PM EST) Pathologist [facility] Hemoglobin A1C 7.8(A) 4.0 - 5.7 % Blood 01/09/2025 1:16 PM EST Kiel Name POINT OF CARE TEST ENTER/EDIT OR DERABLES Final Result * Urinalysis with Reflex to Microscopic (01/08/2025 10:51 PM EST) Pathologist [facility] Color Urine Yellow [facility] Appearance Urine Clear [facility] PH 6.0 5.0 - 9.0 [facility] Glucose Urine UA Negative Negative mg/dL [facility] Urine Blood Negative Negative [facility] Specific [place] - Urine 1.020 1.005 - 1.025 [facility] Urine Protein Negative Neg-Trace mg/dL [facility] Urine Ketones Negative Negative mg/dL [facility] Nitrite Urine Negative Negative [facility] Leukocyte Esterase Urine Negative Negative [facility] 01/08/2025 10:5 1 PM EST 01/08/2025 10:54 PM EST Generic External Data Provider LAB URINE ORDERAB LES Final Result [facility] [address] [place] [phone] * High Sensitivity Troponin I (01/08/2025 8:39 PM EST) Only the most recent of2 resultswithin the time period is included. TROPONIN I HIGH SENSITIVITY <2.7 <3.5 - 17.0 ng/L [facility] Comment:The [place] high sens itivity Troponin-I results should beused in conjunction with other diagnostic information suchas ECG, clinical observations and information, and patientsymptoms to aid in the diagnosis of CA. 01/08/2025 8:39 PM EST 01/08/2025 8:41 PM EST us Generic External Data Provider LAB BLOOD ORDERAB LES Final Result Performing Organization Address [facility]/ZIP Co de Phone Number [facility] [address] [place] [phone] * (ABNORMAL) Hepatic Function Panel (01/08/2025 6:13 PM EST) Only the most recent of2 resultswithin the time period is included. Bilirubin, Total 0.4 0.0 - 1.0 mg/dL [facility] Bilirubin, Direct 0.1 0.0 - 0.5 mg/dL [facility] Aspartate Amino Transferase 24 5 - 31 U/L [facility] Comment:Slight Hemolysis.Int erpret result with caution. Alanine Aminotransferase 44(H) 0 - 31 U/L [facility] Total Protein 6.8 6.5 - 8.0 g/dL [facility] Albumin Level 4.1 3.5 - 5.0 g/dL [facility] Alkaline Phosphatase 83 39 - 117 U/L [facility] 01/08/2025 6:13 PM EST 01/08/2025 6:16 PM EST Narrative [facility] - 01/08/2025 6:37 PM EST 2 attempts made us Generic External Data Provider LAB BLOOD ORDERAB LES Final Result Performing Organization Address City/[facility]/ZIP Co de Phone Number [facility] [address] [place] [address] [phone] * (ABNORMAL) Basic Metabolic Panel (01/08/2025 6:13 PM EST) Sodium 136 135 - 145 mmol/L [facility] Potassium 4.2 3.3 - 5.1 mmol/L [facility] Comment:Slight Hemolysis.Int erpret result with caution. Chloride 102 96 - 108 mmol/L [facility] Carbon Dioxide 23 22 - 29 mmol/L [facility] Anion Gap 15 12 - 20 [facility] Urea Nitrogen (BUN) 16 9 - 16 mg/dL [facility] Creatinine, Serum 0.46(L) 0.5 - 1.4 mg/dL [facility] Creatinine Clr Calc Pharmacy 154.4 [facility] Comment:Provided height and weight: 160.02 cm,107.048 kg.eGFR (calculated from the MDRD study equation) and eCrCl(calculated from the Cockcroft-Gault equation) are based ondifferent parameters and may not yield comparable results.If eCrCl result is absurd, please check patient'sheight/weight. Estimated Glomerular Filt Rate >60 [facility] Comment:Chronic Kidney Disea se: Estimated GFR < 60 mL/min/1.34b1Kjrvfi Kidney Disease: Estimated GFR < 15 mL/min/1.73m2 Glucose 194(H) 60 - 115 mg/dL [facility] Calcium 9.5 8.4 - 10.2 mg/dL [facility] 01/08/2025 6:13 PM EST 01/08/2025 6:16 PM EST Narrative [facility] - 01/08/2025 6:37 PM EST 2 attempts made us Generic External Data Provider LAB BLOOD ORDERAB LES Final Result Performing Organization Address [facility]/ZIP Co de Phone Number [facility] [address] [place] [address] [phone] * XR Chest 2 Views (01/08/2025 4:17 PM EST) Anatomical Region Laterality Modality Chest Radiographic Diana ging 01/08/2025 4:17 PM EST Narrative 01/08/2025 4:33 PM EST [address] [address] XRay Report Signed Patient: Sarita Puga MR#: [id number] 92 : 1965 Acct:[id number] Age/Sex: 59 / F ADM Date: 01/08/25 Loc: HO.ED Attending Dr: Ordering Physician: Aurora Beltrán Date of Service: 01/08/25 Procedure(s): XR chest 2V Accession Number(s): [id number] cc: Kiel Shaffer MD; Aurora Beltrán Reason [...] Flavio Simms MD 01/08/2025 04:29 PM EST Dictated By: Flavio Simms MD Signed By: <Electronically signed by Flavio Simms MD in OV> 01/08/25 1629 DD/ 1617 TD/TT: 01/08/25 1620 Cam Milling Machine Operator: Procedure Note Donotuseinterpreter, Image - 01/08/[address] [address] XRay Report Signed Patient: Sarita Puga MMR#: [id number] 92 : 1965Acct:[id number] Age/Sex: 59 / FADM Date: 01/08/25 Loc: HO.ED Attending Dr: Ordering Physician: Aurora Beltrán Date of Service: 01/08/25 Procedure(s): XR chest 2V Accession Number(s): [id number] cc: Kiel Shaffer MD; Aurora Beltrán Reason [...] Flavio Simms MD 01/08/2025 04:29 PM EST Dictated By: Flavio Simms MD Signed By: <Electronically signed by Flavio Simms MD in OV> 01/08/25 1629 DD/ 1617 TD/TT: 01/08/25 1620 Cam Milling Machine Operator: [facility] External Provider IMG XR PROCEDURES Final Result * XR Shoulder 2+ Views Left (12/25/2024 9:51 PM EST) Only the most recent of3 resultswithin the time period is included. Anatomical Region Laterality Modality Upper Extremities, Shoulder Left Radi ographic Imaging 12/25/2024 9:51 PM EST Narrative 12/25/2024 9:53 PM EST [place] [address] XRay Report Signed Patient: Sarita Puga MR#: [id number] 92 : 1965 Acct:[id number] Age/Sex: 59 / F ADM Date: 12/25/24 Loc: HO.ED Attending Dr: Ordering Physician: Ignacia Lorenzo Date of Service: 12/25/24 Procedure(s): XR shoulder LT min 2V Accession Number(s): [id number] cc: Ignacia Lorenzo; Kiel Shaffer MD Reason for Exam: pain, trauma? CLINICAL HISTORY: pain, trauma? 3 view left shoulder Comparison: CR/CO/SR - XR SHOULDER 2 OR MORE VIEWS [...] in OV> 12/25/242151 DD/ 50 TD/TT: 12/25/242150 Cam Milling Machine Operator: Procedure Note Donotuseinterpreter, Image - 12/25/2024 [place] [address] XRay Report Signed Patient: Sarita Puga MMR#: [id number] 92 : 1965Acct:[id number] Age/Sex: 59 / FADM Date: 12/25/24 Loc: .ED Attending Dr: Ordering Physician: Ignacia Lorenzo Date of Service: 12/25/24 Procedure(s): XR shoulder LT min 2V Accession Number(s): [id number] cc: Ignacia Lorenzo; Name,Kiel BAILEY Reason for Exam: pain, trauma? CLINICAL HISTORY: pain, trauma? 3 view left shoulder Comparison: CR/CO/SR - XR SHOULDER 2 OR MORE VIEWS [...] in OV> 12/25/242151 DD/ 50 TD/TT: 12/25/242150 Cam Milling Machine Operator: [facility] External Provider IMG XR PROCEDURES Final Result * XR Knee 3 Views Right (12/13/2024 12:39 PM EDT) Anatomical Region Laterality Modality Lower Extremities, Knee Right Radiogra phic Imaging 12/13/2024 12:3 9 PM EDT Narrative 12/13/2024 12:58 PM EDT [place] [address] XRay Report Signed Patient: Sarita Puga MR#: [id number] 92 : 1965 Acct:[id number] Age/Sex: 59 / F ADM Date: 12/13/24 Loc: HO.ED Attending Dr: Ordering Physician: Aurora Beltrán Date of Service: 12/13/24 Procedure(s): XR knee RT 3V Accession Number(s): [id number] cc: Name,Kiel BAILEY; Aurora Beltrán Reason for [...] MD Signed By: <Electronically signed by Allison Chvaez MD in OV> 12/13/24 1255 DD/ 1239 TD/TT: 12/13/24 1246 Cam Milling Machine Operator: SALINAS Procedure Note Donotuseinterpreter, Image - 12/13/[address] [address] XRay Report Signed Patient: Sarita Puga MMR#: [id number] 92 : 1965Acct:[id number] Age/Sex: 59 / FADM Date: 12/13/24 Loc: HO.ED Attending Dr: Ordering Physician: Aurora Beltrán Date of Service: 12/13/24 Procedure(s): XR knee RT 3V Accession Number(s): [id number] cc: Name,Kiel BAILEY; Aurora Beltrán Reason for [...] 12/13/24 1255 DD/ 1239 TD/TT: 12/13/24 1246 Cam Milling Machine Operator: SALINAS [facility] External Provider IMG XR PROCEDURES Edited Result - Final * XR Lumbar Spine 2-3 Views (12/13/2024 12:38 PM EDT) Only the most recent of2 resultswithin the time period is included. Anatomical Region Laterality Modality Spine, L-spine Radiographic Diana ging 12/13/2024 12:3 8 PM EDT Narrative 12/13/2024 12:56 PM EDT [address] [address] XRay Report Signed Patient: Sarita Puga MR#: [id number] 92 : 1965 Acct:[id number] Age/Sex: 59 / F ADM Date: 12/13/24 Loc: HO.ED Attending Dr: Ordering Physician: Lacy Saucedo MD Date of Service: 12/13/24 Procedure(s): XR lumbar spine 2-3V Accession Number(s): [id number] cc: Lacy Saucedo MD; Name,Kiel BAILEY Reason [...] 12/13/24 1253 DD/ 1238 TD/TT: 12/13/24 1246 Cam Milling Machine Operator: SALINAS Procedure Note Donotuseinterpreter, Image - 12/13/[address] [address] XRay Report Signed Patient: Sarita Puga MMR#: [id number] 92 : 1965Acct:[id number] Age/Sex: 59 / FADM Date: 12/13/24 Loc: HO.ED Attending Dr: Ordering Physician: Lacy Saucedo MD Date of Service: 12/13/24 Procedure(s): XR lumbar spine 2-3V Accession Number(s): [id number] cc: Lacy Saucedo MD; Name,Kiel BAILEY Reason [...] 12/13/24 1253 DD/ 1238 TD/TT: 12/13/24 1246 Cam Milling Machine Operator: SALINAS [facility] External Provider IMG XR PROCEDURES Edited Result - Final * MR Wrist w/o Contrast Right (12/06/2024 8:31 PM EDT) Anatomical Region Laterality Modality Upper Extremities, Wrist Right Magneti c Resonance 12/06/2024 8:31 PM EDT Narrative 12/06/2024 8:33 PM EDT [place] [address] Magnetic Resonance Report Signed Patient: Sarita Puga MR#: [id number] 92 : 1965 Acct:[id number] Age/Sex: 59 / F ADM Date: 12/06/24 Loc: HO.MRI Attending Dr: Jose SEGURA Ordering Physician: Jose Hernandez Date of Service: 12/06/24 Procedure(s): MR wrist RT wo con Accession Number(s): [id number] cc: Jose Hernandez; Name,Kiel BAILEY Reason for [...] in OV> 12/06/242032 DD/ 30 TD/TT: 12/06/242030 Cam Milling Machine Operator: Procedure Note Timaotramakrishnainterpreter, Image - 12/06/2024 [place] [address] Magnetic Resonance Report Signed Patient: Sarita Puga MMR#: [id number] 92 : 1965Acct:[id number] Age/Sex: 59 / FADM Date: 12/06/24 Loc: HO.MRI Attending Dr: Jose SEGURA Ordering Physician: Jose Hernandez Date of Service: 12/06/24 Procedure(s): MR wrist RT wo con Accession Number(s): [id number] cc: Jose Hernandez; Name,Kiel BAILEY Reason for [...] in OV> 12/06/242032 DD/ 30 TD/TT: 12/06/242030 Cam Milling Machine Operator: [facility] External Provider IMG MRI PROCEDURES Final Result * (ABNORMAL) Lipid Panel, Standard (11/30/2024 9:56 AM EDT) Triglycerides 122 <150 mg/dL [facility] Comment:Desirable Triglyceri de: less than 150 mg/dLBorderline High Triglyceride 150-199 mg/dLHigh Triglyceride: 200-499 mg/dLVery High Triglyceride: greater than or equal to 5OO mg/dL Cholesterol 151 <200 mg/dL [facility] Comment:Desirable Cholestero l: less than 200 mg/dLBorderline High Cholesterol: 200-239 mg/dLHigh Cholesterol: greater than 239 mg/dL LDL Cholesterol Calculated 91 <100 mg/dL [facility] Comment:Desirable LDL: less than 100 mg/dLNear Optimal/Above Optimal LDL: 110- 129 mg/dLBorderline High LDL: 130-159 mg/dLHigh LDL: 160-189 mg/dLVery High LDL: greater than or equal to 190 mg/dL HDL Cholesterol 36(L) >40 mg/dL [facility] Comment:Desirable HDL: great er than 40 mg/dL Note: This HDL assay may give artificially low results in patients with liver disease. 11/30/2024 9:56 AM EDT 11/30/2024 11:32 AM EDT us Kiel Shaffer MD LAB BLOOD ORDERABLES Final Resul t [facility] [address] [place] [address] [phone] * POCT KEELEY-14 Urine Drug Screen [...] - 11/15/2024 11:43 AM EDT UTOX cup Lot#[id number] Exp. 11/27/25 Internal Pass Control us Kiel Shaffer MD POINT OF CARE TEST ENTER/EDIT OR DERABLES Final Result * XR Hand 3+ Views Left (11/07/2024 12:00 PM EDT) Anatomical Region Laterality Modality Upper Extremities, Hand Left Radiogra phic Imaging 11/07/2024 12:0 0 PM EDT Narrative 11/07/2024 12:20 PM EDT [address] [address] XRay Report Signed Patient: Sarita Puga MR#: [id number] 92 : 1965 Acct:[id number] Age/Sex: 59 / F ADM Date: 11/07/24 [facility]: Lorenzo Chavez MD Ordering Physician: Lorenzo Chavez MD Date of Service: 11/07/24 Procedure(s): XR hand LT min 3V Accession Number(s): [id number] cc: Lorenzo Chavez MD Reason for Exam: [...] 11/07/24 1217 DD/ 1200 TD/TT: 11/07/24 1202 Cam Milling Machine Operator: Procedure Note Donotuseinterpreter, Image - 11/07/2024 [place] [address] XRay Report Signed Patient: Sarita Puga [facility]#: [id number] 92 : 1965Acct:[id number] Age/Sex: 59 / FADM Date: 11/07/24 Loc: HO.HHCX Attending Dr: Lorenzo Chavez MD Ordering Physician: Lorenzo Chavez MD Date of Service: 11/07/24 Procedure(s): XR hand LT min 3V Accession Number(s): [id number] cc: Lorenzo Chavez MD Reason for Exam: [...] 11/07/24 1217 DD/ 1200 TD/TT: 11/07/24 1202 Cam Milling Machine Operator: Lorenzo Chavez MD IMG XR PROCEDURES Edited Result - Final * BI Mammogram Screening Tomosynthesis Bilateral (06/03/2023 8:45 AM EDT) Anatomical Region Laterality Modality Breast Bilateral Mammography 06/03/2023 8:45 AM EDT Narrative 06/30/2023 10:24 PM EDT Emely [facility] [address] [place] [address] Mammography Report Signed Patient: Sarita Puga MR#: [id number] 92 : 1965 Acct:[id number] Age/Sex: 57 / F ADM Date: 06/03/23 Loc: HO.MAMMO Attending Dr: Kiel Shaffer MD Ordering Physician: Kiel Shaffer MD Results: 1Negative Date of Service: 06/03/23 Follow Up: 1 Year From [facility] ina Mammogram Procedure(s): MM tomosynthesis screening BI Accession Number(s): [id number] cc: Kiel Shaffer MD EXAMINATION: MM SCREENING [...] MD in OV> 06/30/232219 DD/ 0845 TD/TT: Cam Milling Machine Operator: Procedure Note Donotuseinterpreter, Image - 06/30/2023 [facility] [address] [place], [place] [address] Mammography Report Signed Patient: Sarita Puga MMR#: [id number] 92 : 1965Acct:[id number] Age/Sex: 57 / FADM Date: 06/03/23 Loc: [facility] Attending Dr: Kiel Shaffer MD Ordering Physician: Kiel Shafferesults: 1Negative Date of Service: 06/03/23Follow Up: 1 Year From Orig inal Mammogram Procedure(s): MM tomosynthesis screening BI Accession Number(s): [id number] cc: Kiel Shaffer MD EXAMINATION: MM SCREENING [...] in OV> 06/30/23 2220 DD/ 0845 TD/TT: Cam Milling Machine Operator: Result Rosita Shaffer MD IMG BI PROCEDURES Edited Result - Final * Albumin, Random Urine W/Creatinine (05/26/2023 8:27 AM EDT) Creatinine, Urine 185.88 mg/dL [facility] Microalbumin Urine 23.0 mg/L [facility] Microalbum Creatinine Ratio Ur 12.3 <30 ug/mg cr [facility] Comment:Albumin/Creatinine R atio Reference Ranges: Normal: < 30 ug/mg creatinine Microalbuminuria: 30 - 300 ug/mg creatinineClinical Albuminuria: > 300 ug/mg creatinine Urine (Urine, Random) 05/26/2023 8:27 AM EDT 05/26/2023 11:19 AM EDT Result Rostia Shaffer MD LAB URINE ORDERABLES Final Resul t [facility] [address] [place] [phone] * Colonoscopy (07/01/2022 4:37 PM EDT) Colonoscopy Normal Normal Narrative Emely Devine - 07/01/2022 4:37 PM EDT Recommended 5 year follow up ([facility]) us Glo Chong MD HEALTH MAINTENANCE Final [...] 01/28/2025 Patient has chronic kidney disease 01/28/2025 Insurance [employer] C[employer] C3 [facility] C3 [employer] [place] [address] [place] [address] [place] [address] Care Teams Air Quality Engineer Relationship Specialty Start Date End Date Name, MD Kiel [address] [place] [address] PCP - General Family Medicine 07/15/15 Katlyn Rodriguez PharmD [address] [place] [phone] Pharmacist Internal Medicine 10/08/22 Marta Ovalle Promotions ManagerLicensed Surveyor 05/25/23
--- OUTSIDE RECORDS SUMMARY | 2025-01-30 04:48 | XMS_ITS | Encounter Summary ---
Author Organization [employer] Address [address] [place] [address] [address] [place] [address] Care Team Providers Care Tree Puller Name Role Phone Name, Kiel BAILEY Primary Care Provider Katlyn Rodriguez PharmD Unavailable Nehal Ann RN Unavailable Unavailable Ania Spencer Unavailable Opal Carrasquillo Unavailable [phone] Ania Spencer Unavailable Ania Spencer Unavailable Encounter Details Date Type Department Care Team (Late st Contact Info) Description 10/29/2022 Abstract [facility] MEDICINE [address] [place], [place] [phone] Name, MD Kiel [address] [place] [address] Social History Tobacco Use Types Packs/Day Years [...] Description 02/04/2025 11:30 AM EST Clinical Support [address] [address] Opal Steiner RN 02/08/2025 9:30 AM EST Medication Management [address] [address] PuiaKatlyn, PharmD [address] [place] [phone] 03/13/2025 11:30 AM EST Telemedicine [address] [address] Kiel Shaffer MD [address] [place] [address] 04/10/2025 10:45 AM EST Office Visit [address] [address] Kiel Shaffer MD [address] [place] [address] documented as of this encounter Goals Goal [...] encounter Results * Diabetes Eye Exam (05/26/2022) [facility] Eye Exam Normal Normal Kiel Shaffer MD HEALTH MAINTENANCE Final Result documented in this encounter Visit Diagnoses Not on filedocumented in this encounter Additional Health Concerns Assessment Noted Time PHQ-9 Depression Total Score: 7 07/15/19 23 2:39 PM EDT documented as of this encounter Care Teams Tree Puller Relationship Specialty Start Date End Date Kiel Shaffer MD [address] [place] [phone] PCP - General Family Medicine 07/15/15 Katlyn Rodriguez PharmD [address] [place] [address] Pharmacist Internal Medicine 10/08/22 Nehal Ann, MARINA [address] [place] [address] Registered Nurse Family Medicine 08/20/24 10/29/24 Ania Spencer 08/20/24 11/26/24 Opal Carrasquillo Registered Nurse 10/29/24 11/26/24 Ania Spencer 12/14/24 12/26/24 Ania Spencer 01/09/25 01/25/25 Marta Ovalle Glass Cut Off SupervisorShow Girl 05/25/23 documented as of this encounter
--- OUTSIDE RECORDS SUMMARY | 2025-01-30 04:48 | XMS_ITS | Encounter Summary ---
Author Organization [employer] Address [address] [place] [address] [address] [place] [address] Care Team Providers Care Car Cooper Name Role Phone Name, Kiel BAILEY Primary Care Provider [phone] Katlyn Rodriguez PharmD Unavailable Nehal Ann RN Unavailable Unavailable Ania Spencer Unavailable Opal Carrasquillo Unavailable Ania Spencer Unavailable Ania Spencer Unavailable Reason for Visit * Reason Onset Date Comments FYI 08/03/2024 Encounter Details Date Type Department Care Team (Late st Contact Info) Description 08/03/2024 Telephone [facility] MEDICINE [address] [place], [place] [phone] Name, MD Kiel [address] [place], [place] [phone] FY Social History Tobacco Use Types Packs/Day [...] any questions you can contact pt at [phone], documented in this encounter Plan of Treatment Upcoming Encounters Date Type Department Care Team (Late st Contact Info) Description 02/04/2025 11:30 AM EST Clinical Support [address] [phone] Opal Steiner RN 02/08/2025 9:30 AM EST Medication Management [address] [phone] PuiaKatlyn, PharmD [address] [place] [address] 03/13/2025 11:30 AM EST Telemedicine [address] [phone] NameKiel MD [address] [place] [address] 04/10/2025 10:45 AM EST Office Visit [address] [phone] Kiel Shaffer MD [address] [place] [address] documented as of this encounter Goals Goal [...] as of this encounter Care Teams Car Cooper Relationship Specialty Start Date End Date Name, MD Kiel [address] [place] [address] PCP - General Family Medicine 07/15/15 Puia, Katlyn, PharmD [address] [place] [address] Pharmacist Internal Medicine 8/18/23 Nehal Ann, MARINA [address] [place] [address] Registered Nurse Family Medicine 08/20/24 10/29/24 Ania Spencer 08/20/24 11/26/24 Opal Carrasquillo Registered Nurse 10/29/24 11/26/24 Ania Spencer 12/14/24 12/26/24 Ania Spencer 01/09/25 01/25/25 Marta Ovalle Clam DredgerBanking Services Officer 05/25/23 documented as of this encounter
--- OUTSIDE RECORDS SUMMARY | 2025-01-30 04:48 | XMS_ITS | Encounter Summary ---
Author Organization [employer] Address [address] [place] [address] [address]t [place] [address] Care Team Providers Care Lan Engineer Name Role Phone Name, Kiel BAILEY Primary Care Provider [phone] Katlyn Rodriguez PharmD Unavailable Nehal Ann RN Unavailable Unavailable Ania Spencer Unavailable Opal Carrasquillo Unavailable Ania Spencer Unavailable Ania Spencer Unavailable Reason for Visit * Reason Onset Date Comments FYI 08/03/2024 Encounter Details Date Type Department Care Team (Late st Contact Info) Description 08/03/2024 Telephone [facility] MED[facility]INE [address] [place], [place] [phone] Name, MD Kiel [address] [place], [place] [phone] FY Social History Tobacco Use Types Packs/Day [...] - 08/03/2024 2:00 PM EDT Tc from [facility] with N stating pt has an upcoming appointment with pcp and would like to report: 1) Pt was discharged yesterday 08/02. Reason: COPD. 2) F/u Left ear symptoms. Pt unable to hear. 3) F/u pull up prescription. Any questions contact [facility] [phone] documented in this encounter Plan of Treatment Upcoming Encounters Date Type Department Care Team (Late st Contact Info) Description 02/04/2025 11:30 AM EST Clinical Support [address] [address] Opal Steiner RN 02/08/2025 9:30 AM EST Medication Management [address] [address] Puia, Katlyn, PharmD [address] [place] [address] 03/13/2025 11:30 AM EST Telemedicine [address] [address] Kiel Shaffer MD [address] [place] [address] 04/10/2025 10:45 AM EST Office Visit [address] [phone] Name, MD Kiel [address] [place] [address] documented as of this encounter Goals Goal [...] documented as of this encounter Care Teams Lan Engineer Relationship Specialty Start Date End Date NameKiel MD [address] [place] [address] PCP - General Family Medicine 07/15/15 Katlyn Rodriguez, AngieD [address] [place], [place] [phone] Pharmacist Internal Medicine 10/08/22 Nehal Ann, MARINA [address] [place] [address] Registered Nurse Family Medicine 08/20/24 10/29/24 Ania Spencer 08/20/24 11/26/24 Opal Carrasquillo Registered Nurse 10/29/24 11/26/24 Ania Spencer 12/14/24 12/26/24 Ania Spencer 01/09/25 01/25/25 Marta Ovalle Housekeeping StaffAudio Specialist 05/25/23 documented as of this encounter
--- OUTSIDE RECORDS SUMMARY | 2025-01-30 04:48 | XMS_ITS | Encounter Summary ---
Author Organization [employer] Address [address] [place] [address] 7[address] [place] [address] Care Team Providers Care Family Engagement Specialist Name Role Phone Name, Kiel BAILEY Primary Care Provider [phone] Katlyn Rodriguez PharmD Unavailable Nehal Ann RN Unavailable Unavailable Ania Spencer Unavailable Opal Carrasquillo Unavailable Ania Spencer Unavailable Ania Spencer Unavailable Reason for Referral * Consultation (Routine) - Closed Specialty Diagnoses / Procedures Referred By Carroll hoover Referred To Contact Occupational Therapy Diagnoses Left arm weakness Lizzie Alfaro NP [address] [place] [address] Phone: tel: fax: [facility] [address] [place] [address] Phone: tel: fax: Referral ID Status Reason Start Date Expiration Date V isits Requested Visits Authorized [id number] Closed Specialty Services Required 09/06/2024 09/06/2025 20 20 Encounter Details Date Type Department Care Team ([facility] st Contact Info) Description 09/06/2024 Orders Only [facility] MEDICINE [address] [place] [address] Lizzie Alfaro NP [address] [place] [address] Left arm weakness (Primary Dx) Social History [...] Upcoming Encounters Date Type Department Care Team ([facility] st Contact Info) Description 02/04/2025 11:30 AM EST Clinical Support [address] [address] Opal Steiner RN 02/08/2025 9:30 AM EST Medication Management [address] [address] PuKatlyn albert, PharmD [address] [place] [address] 03/13/2025 11:30 AM EST Telemedicine [address] [address] NameKiel MD [address] [place] [address] 04/10/2025 10:45 AM EST Office Visit [address] [address] Kiel Shaffer MD [address] [place] [address] Scheduled Referrals Name Type Priority Associated Diagnoses Order Schedule Referral to Occupational Therapy Outpatient Referral Routine Left arm weakness Expected: 09/06/2024 (Approximate), Expires: 09/06/2025 documented as of this encounter Goals Goal Patient Goal Type Associated Problems Recent Progress Patient-Stated? Author Record your blood pressure once per day Blood Pressure No Puia, Ktalyn, PharmD Blood Pressure < 140/90 Blood Pressure [...] as of this encounter Care Teams Family Engagement Specialist Relationship Specialty Start Date End Date Kiel Shaffer MD [address] [place] [address] PCP - General Family Medicine 07/15/15 Puia, Katlyn, PharmD [address] [place] [address] Pharmacist Internal Medicine 10/08/22 Nehal Ann, RN [address] [place] [address] Registered Nurse Family Medicine 08/20/24 10/29/24 Ania Spencer 08/20/24 11/26/24 Opal Carrasquillo Registered Nurse 10/29/24 11/26/24 Ania Spencer 12/14/24 12/26/24 Ania Spencer 01/09/25 01/25/25 Marta Ovalle Embedded EngineerBoning Room Worker 05/25/23 documented as of this encounter
--- OUTSIDE RECORDS SUMMARY | 2025-01-30 04:48 | XMS_ITS | Encounter Summary ---
Author Organization [employer] Address [address] [place] [address] 7t [place] [address] Care Team Providers Care Heel Shaver Name Role Phone Name, Kiel BAILEY Primary Care Provider [phone] Katlyn Rodriguez PharmD Unavailable [phone] Nehal Ann RN Unavailable Unavailable Ania Spencer Unavailable Opal Carrasquillo Unavailable Ania Spencer Unavailable Ania Spencer Unavailable Reason for Visit * Reason Onset Date Comments Nurse Triage 07/04/2024 Encounter Details Date Type Department Care Team (Late st Contact Info) Description 07/04/[address] [facility] MEDICINE [address] [place], [place] [phone] Name, MD Kiel [address] [place], [place] [phone] Nurse Triage Social History Tobacco Use Types [...] 07/04/2024 11:25 AM EDT Triage call with [facility] [place] [id number] [place]. Pt reports headache over the entire head. No involvement with eye area. BP is 104/60. Pt has been seen by neurologist at [facility] and is being tested for possible tumor. Pt was prescribed dexamethasone byneurologist. Pt pain is moderate . Pt has been prescribed roxicodone 10mg starting 06/28/24 but, reports pharmacy wouldn't fill prescription last time contacted. Pt daughter is speaking for Pt at this time. Daughter is advised to call [facility] for prescription of roxicodone which [...] caller accepted this outcome. Contact pt at [phone] (mozambican) documented in this encounter Plan of Treatment Upcoming Encounters Date Type Department Care Team (Late st Contact Info) Description 02/04/2025 11:30 AM EST Clinical Support [address] [address] Opal Steiner, MARINA 02/08/2025 9:30 AM EST Medication Management [address] [address] Katlyn Rodriguez PharmD [address] [place] [address] 03/13/2025 11:30 AM EST Telemedicine [address] [address] NameKiel MD [address] [place] [address] 04/10/2025 10:45 AM EST Office Visit [address] [phone] Kiel hSaffer MD [address] [place] [address] documented as of this encounter Goals Goal [...] documented as of this encounter Care Teams Heel Shaver Relationship Specialty Start Date End Date Name, MD Kiel [address] [place] [address] PCP - General Family Medicine 07/15/15 Puia, Katlyn, PharmD [address] [place] [address] Pharmacist Internal Medicine 10/08/22 Nehal Ann, MARINA [address] [place] [address] Registered Nurse Family Medicine 08/20/24 10/29/24 Ania Spencer 08/20/24 11/26/24 Opal Carrasquillo Registered Nurse 10/29/24 11/26/24 Ania Spencer 12/14/24 12/26/24 Ania Spencer 01/09/25 01/25/25 Marta Ovalle Welding Machine Operator ArcScientific Glass Blower 05/25/23 documented as of this encounter
--- OUTSIDE RECORDS SUMMARY | 2025-01-30 04:48 | XMS_ITS | Clinical Summary ---
Author Organization [facility] Address [address] [place] [address] [place] [phone] Phone Care Team Providers Care Sales And Marketing Manager Name Role Phone Unavailable Primary Care [...] Devices Not on file Insurance [employer] [place] [address] [place] [address] [place] [address] [place] [address] [place] [address] [place] [address] [place] [place] [address] [employer] Additional Source Comments The information contained in this document represents components of the legal health record. It is not the complete legal health record.[facility]ly [facility]
--- OUTSIDE RECORDS SUMMARY | 2025-01-30 04:48 | XMS_ITS | Encounter Summary ---
Author Organization [employer] Address [address] [facility] 7t [place] [address] Care Team Providers Care Orthopaedic General Name Role Phone Name, Kiel BAILEY Primary Care Provider [phone] Katlyn Rodriguez PharmD Unavailable Nehal Ann RN Unavailable Unavailable Ania Spencer Unavailable Opal Carrasquillo Unavailable [phone] Ania Spencer Unavailable Ania Spencer Unavailable Reason for Visit * Reason Onset Date Comments Durable Medical Equipment 12/06/2022 Encounter Details Date Type Department Care Team (Late st Contact Info) Description 12/06/2022 Telephone [facility] MEDICINE 230 [place], [place] [phone] Name, MD Kiel [address] [place] [address] Durable Medical Equipment Social History Tobacco Use [...] to message above. Please contact pt at [phone] (Botswanan) * Telephone Encounter - Jean-Paul Finch - 12/06/2022 3:29 PM EDT Tc from pt requesting status on some bed absorbant pads to not stain bed. Please contact pt at [phone] Botswanan Speaker documented in this encounter Plan of Treatment Upcoming Encounters Date Type Department Care Team (Late st Contact Info) Description 02/04/2025 11:30 AM EST Clinical Support [address] [address] Opal Steiner RN 02/08/2025 9:30 AM EST Medication Management [address] [phone] Puia, Katlyn, PharmD [address] [place] [address] 03/13/2025 11:30 AM EST Telemedicine [address] [phone] Name, MD Kiel [address] [place] [address] 04/10/2025 10:45 AM EST Office Visit [address] [phone] Name, MD Kiel [address] [place] [address] documented as of this encounter Goals Goal [...] documented as of this encounter Care Teams Orthopaedic General Relationship Specialty Start Date End Date Name, MD Kiel [address] [place] [address] PCP - General Family Medicine 07/15/15 Puia, Katlyn, PharmD [address] [place] [address] Pharmacist Internal Medicine 10/08/22 Nehal Ann, MARINA [address] [place] [address] Registered Nurse Family Medicine 08/20/24 10/29/24 Ania Spencer 08/20/24 11/26/24 Opal Carrasquillo Registered Nurse 10/29/24 11/26/24 Ania Spencer 12/14/24 12/26/24 Ania Spencer 01/09/25 01/25/25 Marta Ovalle Mobile Device DeveloperCommunity Resource Officer 05/25/23 documented as of this encounter
[2025-01-30] MEDS: oxyCODONE HCl Immed Release 5 MG TABLET PO (04:56)
--- NOTE | 2025-01-30 04:58 | PC.NURSE ---
pt medicated per eleno, notified Cici Isbell
[2025-01-30 05:12] VITALS: BP 117/91; PULSE 65; RESP 18; TEMP 36.4; O2SAT 98
[2025-01-30 05:14] VITALS: BP 117/91; PULSE 65; RESP 18; TEMP 36.4; O2SAT 98
== END 2025-01-30 05:18 | disposition home or self-care (01) ==
PROVIDERS: Physician Assistant; Emergency Provider Emergency Medicine; PCP Internal Medicine Geriatric Medicine
DX: M54.9 Dorsalgia, unspecified (principal); M54.2 Cervicalgia; R29.6 Repeated falls; G81.94 Hemiplegia, unspecified affecting left nondominant side; Z91.81 History of falling; E11.9 Type 2 diabetes mellitus without complications; E78.5 Hyperlipidemia, unspecified; J44.9 Chronic obstructive pulmonary disease, unspecified; Z79.02 Long term (current) use of antithrombotics/antiplatelets; Z79.899 Other long term (current) drug therapy; Z79.4 Long term (current) use of insulin; Z03.818 Encounter for observation for suspected exposure to other biological agents ruled out
CPT/HCPCS: 36415; 70450; 71250; 72125; 74176; 80053; 81003; 82550; 83735; 85025; 87637; 93005; 99284

== ENCOUNTER → 2025-01-29 19:17 | Outpatient (BNV) | payer MEDICAID, SELFPAY | PROVIDERS: PCP Internal Medicine Geriatric Medicine; Visit Provider Radiology Diagnostic Radiology | DX: R53.1 Weakness (principal); Z04.3 Encounter for examination and observation following other accident | CPT/HCPCS: 70450; 71250; 72125; 74176 ==

== ENCOUNTER → 2025-01-29 19:17 | Outpatient (BNV) | payer MEDICAID, SELFPAY | PROVIDERS: Emergency Provider Emergency Medicine; PCP Internal Medicine Geriatric Medicine; Visit Provider Internal Medicine Cardiovascular Disease | DX: R53.1 Weakness (principal) | CPT/HCPCS: 93010 ==

== ENCOUNTER 2025-02-01 10:34 | Outpatient (AMB) | payer MEDICAID, SELFPAY ==
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
== END 2025-02-01 11:38 | disposition home or self-care (01) ==
LOC: HO.HOS 10:35
PROVIDERS: PCP Internal Medicine Geriatric Medicine; Visit Provider Physician Assistant
DX: G81.94 Hemiplegia, unspecified affecting left nondominant side (principal)
CPT/HCPCS: 99214

== ENCOUNTER → 2025-02-01 13:18 | Outpatient (BNV) | payer MEDICAID, SELFPAY | PROVIDERS: PCP Internal Medicine Geriatric Medicine; Visit Provider Radiology Diagnostic Radiology | DX: I69.352 Hemiplegia and hemiparesis following cerebral infarction affecting left dominant side (principal) | CPT/HCPCS: 70551 ==

== ENCOUNTER 2025-02-01 13:23 | Outpatient (REF) | payer MEDICAID, SELFPAY ==
--- OUTSIDE RECORDS SUMMARY | 2023-11-24 08:53 | XMS_ITS | Encounter Summary ---
Author Organization [facility] Address [address] [place] [phone] Care Team Providers Care Creative Services Designer Name Role Phone Name, Kiel BAILEY Primary Care Provider [phone] Encounter Details Date Type Department Care Team (Late st Contact Info) Description 11/24/2023 9:53 AM EDT Hospital Encounter TH HISTORIC ENCOUNTERS EASTERN CONVERSION ONLY Geoffrey-Art Vitale MD [address] [place] [phone] Social History Tobacco Use Types Packs/Day [...] 02/05/2024 6:47 AM Rosy New RN * [place] Suicide Severity Rating Scale (Screener/Recent Self-Report) Question [...] 2:17 PM Encounter Date: 11/24/2023 Status: Signed Rn Dialysis: Art Davis MD (Physician) CHIEF COMPLAINT: Chief Complaint Patient presents with ? Follow-up Diffuse large B-cell lymphoma Stage III Completed 6 cycles of R-CHOP in July 23, 2018 IDENTIFIER:Sarita Puga is a 58 y.o. female. HPI: The patient returns for follow up of Large B-cell lymphoma. Here with her daughter , who is azeri to central african spanish language lecturer Patient reports that she has been doing [...] accompanied by her daughter and girlfriend. As Cambodian to Divehi spanish language lecturer assisted with the discussion. She had a [...] She has not noticed any new lymph nodeswelling. She denies any nausea. No new areas [...] Care Team (Late st Contact Info) Description 05/01/2025 2:00 PM EDT Office Visit Orthopedic Surgery - [place] [address] [phone] Wesley Garcia DPM [address] [phone] documented as of this encounter Procedures Procedure [...] documented as of this encounter Care Teams Creative Services Designer Relationship Specialty Start Date End Date Name, MD Kiel [address] [place], [place] PCP - General Internal Medicine 08/28/15 documented as of this encounter
--- OUTSIDE RECORDS SUMMARY | 2023-11-24 09:30 | XMS_ITS | Encounter Summary ---
Author Organization [facility] Address [address] [place] [address] Care Team Providers Care Quarry Plant Crusher Operator Name Role Phone Name, Kiel BAILEY Primary Care Provider [phone] Encounter Details Date Type Department Care Team (Late st Contact Info) Description 11/24/2023 10:30 AM EDT Hospital Encounter TH HISTORIC ENCOUNTERS EASTERN CONVERSION ONLY Geoffrey-Art Vitale MD [address] [place] [phone] Social History Tobacco Use Types Packs/Day [...] 02/05/2024 6:47 AM Rosy New RN * [place] Suicide Severity Rating Scale (Screener/Recent Self-Report) Question [...] PM EDT Office Visit Orthopedic Surgery - [place] [address] [phone] Wesley Garcia DPM [address] [phone] documented as of this encounter Visit Diagnoses Not on filedocumented in this encounter Additional Health Concerns Infection Onset Date Last Indicated Resolved Time Respiratory Rule-Out 02/05/2024 02/05/2024 024 8:09 AM EST COVID-19 Rule-Out 02/05/2024 02/05/2024 02/05/2024 8:09 AM EST documented as of this encounter Care Teams Quarry Plant Crusher Operator Relationship Specialty Start Date End Date Name, MD Kiel 4 [place], [place] PCP - General Internal Medicine 08/28/15 documented as of this encounter
--- OUTSIDE RECORDS SUMMARY | 2025-01-31 14:15 | XMS_ITS | Encounter Summary ---
Author Organization [facility] Address [address] [place] [address] Care Team Providers Care Director Of Corporate Communications Name Role Phone Name, Kiel BAILEY Primary Care Provider [phone] Encounter Details Date Type Department Care Team ([facility] Contact Info) Description 01/31/2025 2:15 PM EST Office Visit Orthopedic Surgery - [place] [id number] [phone] Wesley Garcia DPM [address] [phone] Acquired hammer toe of right foot (Primary Dx); Tinea pedis of both feet; Diabetic mononeuropathy simplex (CMS/HCC V24, CMS/HCC V28); Pain in toe of left foot; Pain in toe of right foot; Dermatophytosis of nail; Hammer toe of left foot Social History Tobacco Use Types Packs/Day Years [...] on file documented as of this encounter Progress Notes * Wesley Garcia DPM - 01/31/2025 2:15 PM EST Last PCP visit:Referring MD: Kiel Name 08/20/2024 S Patient presents complaint of severe pain numbness burning tingling both feet she states stability to it difficult for her to walk or stand for prolonged period time states affects where she walks she states that she has severe pain bilateral extremities has been bothered for a long period of time years states that she follows with her primary care is on pain contract continues have severe pain discomfort did use lidocaine topically reports that her nails are long and painful thickened missed multiple fall appointments was last seen 5 months ago has had worsening curling of her toes and contractures of the digits ROS: GENERAL: Pt denies nausea, fever, vomiting, chills, or shortness of breath. Pt in NAD. CARDIOLOGY: pt denies chest pain, palpitations LUNGS: pt denies shortness of breath MUSCULOSKELETAL: See HPI, otherwise no joint pain or swelling, back pain, or muscle pain. SKIN: see HPI, otherwise no lesions, rash or itching NEURO: No persistent headache, weakness or numbness The remainder of the review of systems is noncontributory PAST MEDICAL HISTORY: Patient Active Problem List Diagnosis Code Tobacco use disorder F17.200 Hypertriglyceridemia E78.1 Diabetes mellitus type II, uncontrolled [id number] Morbid obesity ([facility]) E66.01 Depression F32.A Asthmatic bronchitis , chronic ([facility]) J44.89 Low back pain radiating to left leg M54.50, M79.605 Cocaine abuse, episodic use ([facility]) F14.10 Insomnia G47.00 DRE (obstructive sleep apnea) G47.33 Visual field defect H53.40 Lipoma of abdominal wall D17.1 Abdominal pain R10.9 Rib fracture S22.39XA Abnormal nuclear stress test R94.39 SOCIAL HISTORY: Social History Tobacco Use Smoking status: Some Days Packs/day: 0.50 Years: 15.00 Pack years: 7.50 Types: Cigarettes Last attempt to quit: 08/22/2014 Years since quittin.1 Smokeless tobacco: Never Tobacco comments: approx 7 daily Substance Use Topics Alcohol use: No History Last Reviewed by Aurora Cronin M.A. on 05/06/2015 at 10:12 AM Sections Reviewed Tobacco ACTIVE MEDICATIONS: Current Outpatient Medications Medication Sig Dispense Refill lidocaine (LIDODERM) 5 % Place 1 Patch onto the skin every 24 hours for 112 days. Apply for no morethan 12 hours in any 24 hour period. 28 Patch 3 metoprolol (TOPROL-XL) 25 MG 24 hr tablet TAKE ONE TABLET BY MOUTH daily 30 Tab 1 isosorbide mononitrate (IMDUR) 30 MG 24 hr tablet TAKE ONE TABLET BY MOUTH daily 30 Tab 1 mirtazapine (REMERON) 15 MG tablet TAKE ONE TABLET BY MOUTH AT BEDTIME 30 Tab 2 omeprazole (PRILOSEC) 40 MG capsule TAKE ONE CAPSULE BY MOUTH daily 30 Cap 4 lisinopril (PRINIVIL,ZESTRIL) 5 MG tablet TAKE ONE TABLET BY MOUTH DAILY 30 Tab 1 Insulin Glargine (LANTUS SOLOSTAR) 100 UNIT/ML Solution Pen-injector INJECT 50 UNITS SUBCUTANEOUSLYAT BEDTIME DIRECTED 15 mL 2 gabapentin (NEURONTIN) 600 MG tablet TAKE ONE TABLET BY MOUTH THREE TIMES DAILY 90 Tab 2 montelukast (SINGULAIR) 10 MG tablet TAKE ONE TABLET BY MOUTH AT BEDTIME 30 Tab 3 Alcohol Swabs (ALCOHOL PADS) 70 % Pads USE TO TEST FINGER STICK BLOOD SUGAR TWICE DAILY 100 Each 3 simvastatin (ZOCOR) 20 MG tablet TAKE ONE TABLET BY MOUTH AT BEDTIME 30 Tab 3 Insulin Lispro, Human, (HUMALOG KWIKPEN) 100 UNIT/ML Solution Pen-injector INJECT 8 UNITS SUBCUTANEOUSLY BEFORE MEALS IN THE MORNING AND INJECT 10 UNITS BEFORE MEALS afternoon 5 Device 3 ULTICARE SHORT PEN NEEDLES 31G X 8 MM Misc USE FOUR TIMES DAILY TO INJECT insulin WITH A MEAL AND AT BEDTIME 120 Each 3 FREESTYLE LITE strip USE TO TEST FINGER STICK BLOOD SUGAR TWICE DAILY DIRECTED 100 Each 3 metoprolol (TOPROL XL) 50 MG 24 hr tablet Take 0.5 Tabs by mouth daily. 15 Tab 0 hydrocodone-acetaminophen (NORCO) 5-325 MG per tablet Take 1 tablet by mouth every 6 hours as needed. ALBUTEROL SULFATE (PROAIR HFA) 108 (90 BASE) MCG/ACT Aero Soln Inhale 2 Puffs into the lungs every 4 hours as needed for Cough or Wheezing. 8.5 g 4 fluticasone-salmeterol (ADVAIR HFA) 115-21 MCG/ACT inhaler Inhale 2 Puffs into the lungs 2 times daily. 1 Inhaler 5 furosemide (LASIX) 20 MG tablet Take 1 Tab by mouth daily. 30 Tab 5 Misc. Devices (COMMODE BEDSIDE) Misc 1 Device by Does not apply route as needed (voiding/bm). 1 Each 0 sertraline (ZOLOFT) 50 MG tablet Take 1 Tab by mouth daily. 30 Tab 3 aspirin 81 MG tablet Take 1 Tab by mouth daily. 90 Tab 3 SURE COMFORT LANCETS 30G Misc USE TO TEST FINGER STICK BLOOD SUGAR TWICE DAILY 100 Each 5 albuterol (PROVENTIL) (2.5 MG/3ML) 0.083% nebulizer solution INHALE THE CONTENT OF 1 VIAL VIA nebulizer EVERY 6 HOURS NEEDED FOR WHEEZING 180 mL 5 fluticasone 50 MCG/ACT nasal spray SPRAY TWICE IN EACH NOSTRIL daily 16 g 3 sucralfate (CARAFATE) 1 G tablet Take 1 g by mouth 4 times daily. FreeStyle Lancets MISC 1 Each by Does not apply route 2 times daily. 100 Each 1 LIDODERM 5 % APPLY 1 PATCH TOPICALLY EVERY TWELVE HOURS THEN take off FOR 12 HOUR 30 Patch 4 Diclofenac Sodium (VOLTAREN) 1 % GEL Apply once a day to the affected hand 1 Tube 2 ketoconazole (NIZORAL) 2 % cream Apply twice daily to feet 15 g 0 Blood Glucose Monitoring Suppl (FREESTYLE LITE) ROMERO Use to test bs twice daily 1 Device 0 Calcium + D (CALCIUM) 600-200 MG-UNIT TABS Take 1 Tab by mouth 2 times daily. 60 Tab 5 Loratadine 10 MG TABS 1 TABLET DAILY No current facility-administered medications for this visit. ALLERGIES: Penicillins PHYSICAL EXAM: Weight 274 lb (124.3 kg). Estimated body mass index is 48.54 kg/m?? as calculated from the following: Height as of 05/06/15: 5' 3 (1.6 m). Weight as of this encounter: 274 lb (124.3 kg). PODIATRIC EXAMINATION: GENERAL: Patient appears well nourished, with NAD. VASCULAR: Dorsalis pedis pulses are 1/4 bilaterally and Posterior tibial pulses are 1/4 bilaterally. Capillary filling time within normal limits the digits. No pallor on elevation or rubor on dependency. hair growth. No varicosities. Denies rest pain or claudication pain. NEUROLOGICAL: Sharp/dull sensation , protective sensation 9/10 with 5.07 semmes sterling bilaterally, vibratory sensation with tuning fork intact to the tibial tuberosity. ORTHOPEDIC: Good muscle strength 5/5 of all flexors and extensors. Dorsi flexion of ankle ,10 degrees, plantar flexion WNL. No muscle atrophy. DERMATOLOGICAL:. Toenails: Left Toenail(s) 1-5: Crumbling upon debridement, subungual debris, discoloration, dystrophy, elongation, mycotic appearance, onychomycosis, pain and thickening. Right Toenail(s) 1-5: Crumbling upon debridement, subungual debris, discoloration, dystrophy, elongation, mycotic appearance, onychomycosis, pain and thickening. Annular scaling bilateral feet moccasin distribution BIOMECHANICS: STJ ROM wnl, MTJ ROM wnl, 1st MPJ ROM wnl. Rigid hammertoes 2 through 5 IMAGING: IMPRESSION: 1. Tinea pedis of both feet 2. Diabetic mononeuropathy simplex (CMS/HCC V24, CMS/HCC V28) 3. Pain in toe of left foot 4. Pain in toe of right foot 5. Dermatophytosis of nail 6. Hammer toe of left foot 7. Acquired hammer toe of right foot PLAN: Pt was seen and examined, history reviewed. Recommend [id number] clotrimazole Simply worsening hammertoe contracture forms with feet discussed reviewed placement of silicone toesleeves tubular gauze wider shoe gear patient has been ambulatory currently without any signs of preulcerative lesions significant ingrowing nail of the tips may be a benefit for possibilities of flexor tenotomy's to correct digital deformities Discussed with patient regarding proper glucose control, exercise, and diet. Explained to patient proper shoe gear, and importance of daily foot checks. Continue with lidocaine [id number] Referral offered painter rough patient declined I reviewed neuropathy and why it occurs in diabetics. I educated the patient on proper blood sugar control and the importance of an HgBA1c of less than 7.0%. I reviewed the signs and symptoms of neuropathy with the patient Pt to return for another evaluation in 3 months. Debridement of mycotic toenails 6-10: Verbal informed consent was obtained from the patient. Greater than 6 nails were aseptically debrided in thickness and length with nail nippers Wesley Garcia DPM documented in this encounter Plan of Treatment Upcoming Encounters Date Type Department Care Team (Late st Contact Info) Description 05/01/2025 2:00 PM EDT Office Visit Orthopedic Surgery - [place] [address] [phone] Wesley Garcia, DPM [address] [phone] documented as of this encounter Visit Diagnoses Diagnosis Acquired hammer toe of right foot- Primary Tinea pedis of both feet Diabetic mononeuropathy simplex (CMS/HCC V24, CMS/HCC V28) Type II or unspecified type diabetes mellitus with neurological manifestations, not stated as uncontrolled Pain in toe of left foot Pain in soft tissues of limb Pain in toe of right foot Pain in soft tissues of limb Dermatophytosis of nail Hammer toe of left foot documented in this encounter Care Teams Director Of Corporate Communications Relationship Specialty Start Date End Date Name, MD Kiel [address] [place], [place] PCP - General Internal Medicine 08/28/15 documented as of this encounter
--- NOTE | ~2025-02-01 | MR_ITS ---
EXAMINATION: MR BRAIN WITHOUT CONTRAST CLINICAL INFORMATION: CVA. Hemiparesis with left dominance side. COMPARISON: July 10, 2024 and June 18, 2024. TECHNIQUE: Axial DWI sequence. Axial and ADC map. Sagittal T1 sequence.. FINDINGS: Hyperintense diffusion weighted imaging signal abnormality involving the peripheral aspect of the thalami extending into the right and to a lesser extent left midbrain and left ventral geovany with associated subtle hypointense signal on the corresponding ADC map. Hyperintense diffuse weighted image signal within the splenium of the corpus callosum extending from the midline to the left and right. Sellar/suprasellar region is normal. Craniocervical junction is intact with normal position of the cerebellar tonsils. MR/MR head/brain wo con IMPRESSION: Limited exam. Consider cytotoxic lesions of corpus callosum related to seizures versus metabolic disturbances versus infectious versus malignancy versus drug related and or toxins related. Vascular versus autoimmune disorders should be considered.. Electronically signed by: Felix Fall MD 02/01/2025 02:49 PM EST
--- OUTSIDE RECORDS SUMMARY | 2025-02-01 18:55 | XMS_ITS | Clinical Summary ---
Author Organization [facility] Prior to 07/21/[address] [place] [id number] Care Team Providers Care Milk Runner Name Role Phone Name, Kiel BAILEY Primary Care Provider [phone] Allergies Active Allergy Reactions Criticality Noted Date [...] age to complete this topic Care Teams Milk Runner Relationship Specialty Start Date End Date Name, MD Kiel [address] [facility] [address] [place] [address] PCP - General Internal Medicine 04/17/18
--- OUTSIDE RECORDS SUMMARY | 2025-02-01 18:55 | XMS_ITS | Clinical Summary ---
Author Organization [facility] Address [address] [place] [address] [place] [phone] Phone Care Team Providers Care Auto Clocks Repairer Name Role Phone Unavailable Primary Care Provider [...] Devices Not on file Insurance [employer] [address] [place] [address] [place] [address] [place] [address] [place] [address] [place] [address] [place] [address] [place] [address] [employer] Additional Source Comments The information contained in this document represents components of the legal health record. It is not the complete legal health record.[facility]
--- OUTSIDE RECORDS SUMMARY | 2025-02-01 18:55 | XMS_ITS | Encounter Summary ---
Author Organization [facility] Address [address] [place] [address] Phone Care Team Providers Care Cosmetic Surgeon Name Role Phone Unavailable Primary Care Provider Unavailabl e Encounter Details Date Type Department Care Team (Late st Contact Info) Description 01/04/2020 Procedure Pass [facility] [address] [place] [address] [place], [place] [id number] Social History Tobacco Use Types Packs/Day Years [...] It is not the complete legal health record.[facility]
--- OUTSIDE RECORDS SUMMARY | 2025-02-01 18:55 | XMS_ITS | Encounter Summary ---
Author Organization [facility] Address [address] [facility] [address] [place] [address] Phone Care Team Providers Care Mill Tender Second Operator Name Role Phone Unavailable Primary Care Provider Unavailabl e Encounter Details Date Type Department Care Team (Latest Contact Info) Description 01/04/2020 Ancillary Orders [facility] [address] [place] [address] [place] [address] Bright Jesus, DO [address] [place] [address] Chest pain, unspecified type Social History Tobacco [...] It is not the complete legal health record.[facility]
--- OUTSIDE RECORDS SUMMARY | 2025-02-01 18:55 | XMS_ITS | Clinical Summary ---
Author Organization 175 [facility] Address [address] [place] [address] Phone Care Team Providers Care Aviation Warfare Systems Operator Name Role Phone Name, Kiel BAILEY Primary Care Provider [phone] Allergies Active Allergy Reactions Criticality Noted Date [...] Active medical supply, miscellaneous (MISCELLANEOUS MEDICAL SUPPLY [facility]) ULTICARE SHORT PEN NEEDLES 31G X 8 MM USE FOUR TIMES DAILY TO INJECT insulin WITH A MEAL AND AT BEDTIME 06/23/19 16 Active blood sugar diagnostic (FreeStyle Lite Strips) test strip USE TO TEST FINGER STICK BLOOD SUGAR TWICE DAILY DIRECTED 06/23/19 16 Active medical supply, miscellaneous (MISCELLANEOUS MEDICAL SUPPLY MISC) [facility]. DEVICES (COMMODE BEDSIDE) MIS 1 Device by Does not apply route as needed (voiding/bm). 12/11/19 15 Active ASPIRIN ORAL Take 1 Tab by mouth daily. 11/28/19 15 Active lancets (Sure Comfort Lancets) 30 gauge [facility] USE TO TEST FINGER STICK BLOOD SUGAR [...] 10/08/2009 Overview (12/12/2023): The patient follows with [facility] and is treated with injections to the LS. Asthmatic bronchitis , chronic 07/07/2009 Overview (12/12/2023): Severe and worse in the spring. Last hospitalazion in May and 3 ER visits Hospital 08/02 Known medical problems 06/05/2009 Tobacco use disorder 06/05/2009 Hypertriglyceridemia 06/05/2009 Morbid obesity 06/05/2009 Overview (12/12/2023): BMI 48.37 on 11/15/13 Depression 06/05/2009 Encounters Date Type Department Care Team Description 01/31/2025 2:15 PM EST Office Visit [facility] [address] [place] [phone] Wesley Garcia DPM Acquired hammer toe of right foot (Primary Dx); Tinea pedis of both feet; Diabetic mononeuropathy simplex ([facility] V24, [facility] V28); Pain in toe of left foot; Pain in toe of right foot; Dermatophytosis of nail; Hammer toe of left foot from Last 3 Months Immunizations Immunization Administration Dates Next Due Influenza [...] TOTAL HYSTERECTOMY WITH BSO; COMMENT: for bleeding, [facility] Medical History Medical History Date Comments Type II or unspecified type diabetes mellitus with unspecified complication, not stated as uncontrolled DX:Type II or unspecified t ype diabetes mellitus with unspecified complication, not stated as uncontrolled Unspecified essential hypertension DX:Unspecified essential hypertension Tobacco abuse DX:Tobacco abuse RAD (reactive airway disease) DX :RAD (reactive airway disease) Morbid obesity ([facility] V24, [facility] V28) DX:Morbid obesity ([facility]) Asthmatic bronchitis , chron ic ([facility] V24, [facility] V28) 07/07/2009 DX:Asthmatic bronchitis , ch ronic ([facility]) Hypertriglyceridemia 06/05/2009 DX:Hypertri glyceridemia Rib fracture 12/24/2013 DX:Rib fracture Family History Medical History Relation Name Comments Blindness Brother 1 Breast cancer Maternal Grandmother Cataracts Maternal Grandmother Blindness Mother Glaucoma Neg Hx Macular degeneration Neg Hx Strabismus Neg Hx Relation Name Status Comments Brother 1 Brother 2 AK Brother 3 Alive 6 brothers are diabetic [...] PM EDT Office Visit [facility] [address] [phone] Wesley Garcia, DPM [address] [phone] Health Maintenance Due Date Last Done Comments [...] 2024 12/15/2021, 03/13/2021, 08/18/2020, Additional history exists Diabetes: Blood Sugar Control Test (HGBA1C) 07/09/2025 01/09/2025, 06/28/2024, 03/27/2024, Additional history exists Diabetes: Annual GFR (Glomerular Filtration Rate) 01/29/2026 01/29/2025, 12/25/2024, 02/06/2024, Additional history exists Hypertension/CHF/CAD Annual BMP Blood Test 01/29/2026 01/29/2025, 12/25/2024, 02/06/2024, Additional history exists Cholesterol Screening (Lipid Panel) 11/30/2029 11/30/2024, 10/25/2023, 05/10/2014 DTaP,Tdap,and Td Vaccines (5 - Td or Tdap) 03/30/2034 03/30/2024, 11/13/2021, 10/22/2021, Additional history exists Hepatitis C Screening Completed 10/10/2013 Zoster Vaccines Completed 04/01/2022, 05/06/2021 Pneumococcal Vaccine: 50+ Years Completed 10/08/2022, 02/05/2018, 10/03/2013, Additional history exists Hepatitis B Vaccines Completed 11/05/2022, 10/09/19 Influenza Vaccine Completed 11/27/2024, , 11/05/2022, Additional history exists HIB Vaccines Aged Out [...] AM EST [facility] Anion Gap 9 3 - 11 LAB CHEMISTRY METHOD 02/06/2024 3:36 AM [facility] Glucose 244(H) 70 - 100 mg/dL LAB CHEMISTRY METHOD 02/06/2024 3:36 AM EST [facility] BUN 17 5 - 25 mg/dL LAB CHEMISTRY METHOD 02/06/2024 3:36 AM EST [facility] Creatinine 0.71 0.50 - 1.10 mg/dL LAB CHEMISTRY METHOD 02/06/2024 3:36 AM EST [facility] eGFR 99 >=60 mL/min/1. 73m2 [...] esult [facility] [address] [place] [address], * (ABNORMAL) Hemoglobin A1c (11/20/2014) Pathologist [facility] Hemoglobin A1C 7.5(A) 4.0 - 6.0 % Blood Venous blood specimen / Unknown Historical Provider LAB BLOOD ORDERABLES Alis l Result * Urine Albumin Creatinine Ratio (05/10/2014) Pathologist [facility] Urine Albumin Creatinine Ratio abstracted Historical Provider [...] currently active code status orders. Care Teams Aviation Warfare Systems Operator Relationship Specialty Start Date End Date Name, MD Kiel [address] [place], [place] PCP - General Internal Medicine 08/28/15
--- OUTSIDE RECORDS SUMMARY | 2025-02-01 18:55 | XMS_ITS | Encounter Summary ---
Author Organization [employer] [facility] Prior to 07/21/[address] [place] [address] Care Team Providers Care Receiving Teller Name Role Phone Name, Kiel BAILEY Primary Care Provider [phone] Encounter Details Date Type Department Care Team Description 09/10/[address] [facility] Oncology Services [address] [place] [address] Adina Archer [facility] Social History Tobacco Use Types Packs/Day Years [...] on filedocumented in this encounter Care Teams Receiving Teller Relationship Specialty Start Date End Date Name, MD Kiel [address] [place] [address] [address] [place] [address] PCP - General Internal Medicine 04/17/18 documented as of this encounter
== END 2025-02-01 13:24 | disposition home or self-care (01) ==
LOC: HO.MRI 13:23
PROVIDERS: PCP Internal Medicine Geriatric Medicine; Visit Provider Internal Medicine Geriatric Medicine
DX: G89.29 Other chronic pain (principal); M25.512 Pain in left shoulder; I69.352 Hemiplegia and hemiparesis following cerebral infarction affecting left dominant side; R39.0 Extravasation of urine; F17.210 Nicotine dependence, cigarettes, uncomplicated
CPT/HCPCS: 70551

== ENCOUNTER 2025-02-04 12:24 | Inpatient (IN) | payer MEDICAID, SELFPAY ==
--- OUTSIDE RECORDS SUMMARY | 2023-11-24 08:53 | XMS_ITS | Encounter Summary ---
Author Organization [facility] Address [address] [place] [address] Care Team Providers Care Justice Court Deputy Clerk Name Role Phone Name, Kiel BAILEY Primary Care Provider [phone] Encounter Details Date Type Department Care Team (Late st Contact Info) Description 11/24/2023 9:53 AM EDT Hospital Encounter TH HISTORIC ENCOUNTERS EASTERN CONVERSION ONLY Geoffrey-Art Vitale MD [address] [place] [phone] Social History Tobacco Use Types Packs/Day [...] 02/05/2024 6:47 AM Rosy New RN * [place] Suicide Severity Rating Scale (Screener/Recent Self-Report) Question [...] 2:17 PM Encounter Date: 11/24/2023 Status: Signed Teacher Nursery [employer]: Art Davis MD (Physician) CHIEF COMPLAINT: Chief Complaint Patient presents with ? Follow-up Diffuse large B-cell lymphoma Stage III Completed 6 cycles of R-CHOP in July 23, 2018 IDENTIFIER:Sarita Puga is a 58 y.o. female. HPI: The patient returns for follow up of Large B-cell lymphoma. Here with her daughter , who is irish to montenegrin foreign language stenographer Patient reports that she has been doing [...] accompanied by her daughter and girlfriend. As Kosovan to Hungarian foreign language stenographer assisted with the discussion. She had a [...] PM EDT Office Visit Orthopedic Surgery - [place] [address] [phone] Wesley Garcia DPM [address] [phone] documented as of this encounter Procedures Procedure [...] documented as of this encounter Care Teams Justice Court Deputy Clerk Relationship Specialty Start Date End Date Name, MD Kiel [address] [place], [place] PCP - General Internal Medicine 08/28/15 documented as of this encounter
--- OUTSIDE RECORDS SUMMARY | 2023-11-24 09:30 | XMS_ITS | Encounter Summary ---
Author Organization [facility] Address [address] [place] [address] Care Team Providers Care Command Center Analyst Name Role Phone Name, Kiel BAILEY Primary Care Provider [phone] Encounter Details Date Type Department Care Team (Late st Contact Info) Description 11/24/2023 10:30 AM EDT Hospital Encounter TH HISTORIC ENCOUNTERS EASTERN CONVERSION ONLY Geoffrey-Art Vitale MD [address] [place] [phone] Social History Tobacco Use Types Packs/Day [...] 02/05/2024 6:47 AM Rosy New RN * [place] Suicide Severity Rating Scale (Screener/Recent Self-Report) Question Answer Date of Assessment Author 1. Wish to be (Past 1 Month) No 024 6:47 AM Rosy New, MARINA 2. Non-Specific Active Suici rex Thoughts (Past 1 Month) No 02/05/2024 6:47 AM EST Gambino, Boom a, RN 6. Suicidal Behavior (Lifetime) No 4 6:47 AM Rosy New, RN documented as of this encounter Plan of Treatment Upcoming Encounters Date Type Department Care Team (Late st Contact Info) Description 05/01/2025 2:00 PM EDT Office Visit Orthopedic Surgery - [place] [address] [phone] Wesley Garcia DPM [address] [phone] documented as of this encounter Visit Diagnoses Not on filedocumented in this encounter Additional Health Concerns Infection Onset Date Last Indicated Resolved Time Respiratory Rule-Out 02/05/2024 02/05/2024 024 8:09 AM EST COVID-19 Rule-Out 02/05/2024 02/05/2024 02/05/2024 8:09 AM EST documented as of this encounter Care Teams Command Center Analyst Relationship Specialty Start Date End Date Name, MD Kiel 4 [place], [place] PCP - General Internal Medicine 08/28/15 documented as of this encounter
--- OUTSIDE RECORDS SUMMARY | 2025-01-31 10:30 | XMS_ITS | Encounter Summary ---
Author Organization [employer] Address [address] [facility] 7t [place] [address] Care Team Providers Care Industrial Editor Name Role Phone Name, Kiel BAILEY Primary Care Provider [phone] Katlyn Rodriguez PharmD Unavailable [phone] Ania Spencer Unavailable Reason for Visit * Reason Comments ED RN VISIT Encounter Details Date Type Department Care Team ([facility] st Contact Info) Description 01/31/2025 10:30 AM EST Telemedicine [facility] MEDICINE [address] [place] [address] Flora Christianson RN Hemiparesis of left dominant side as late effect of cerebral infarction (CMS/HCC) (HCC); Recurrent falls; Tenderness of back Social History Tobacco Use Types Packs/Day Years [...] as of this encounter Progress Notes * Flora Christianson RN - 01/31/2025 10:30 AM EST Hospital Discharges and Admission for [facility] Type of Visit: Emergency Department Date of Admission/Visit: 01/30/25 Date of Discharge: 01/30/25 Facility: [facility] Diagnosis: Left hemiparesis, Tenderness of back, Recurrent falls Disposition: Discharged Home Follow-Up Actions Follow-Up Needed: Nurse appointment; Provider appointment Follow-Up Outcome: Spoke to Patient; Spoke to Caregiver Initial Contact Date: 01/30/25 Patient Contacted: Yes Patient Status: Improved TC x 2 placed to pt for RN Telehealth Visit via [facility] skiver counter ID#[id number]. Pt initially answered and hung up. Second attempt was made and spoke to pt's daughter (on HIPAA) without skiver counter. Pt daughter reports pt is doing better and has not hand any falls since ED visit. Pt's daughter reports no medications were prescribed in the ED. Pt's daughter reports pt is having pain that is controlled with ibuprofen, oxycodone, and Tylenol. Pt's daughter states pt is reporting last BM 5 days ago. Pt is complaining of some abdominal discomfort. Pt's daughter reports they are very well hydrated. Advisedpt and pt's daughter to come to [facility] today for evaluation. Pt's daughter reports pt has an appointment with podiatry today at 2:00 PM that they cannot miss. Advised pt's daughter to bring to [facility] for evaluation to ensure there is not any blockage and to have provider evaluation. Pt's daughter reportsthey will try to bring pt to [facility]. Advised importance of provider evaluation today. Advised if they are unable to go to [facility], recommended to seek evaluation at urgent care or ED today. Pt's daughter reports they will try to get pt to [facility] today. Pt and pt's daughter requesting ED follow up with provider. Pt booked for ED follow up with QAMAR Crespo on 02/06/25 at 2:30 PM The full discharge summary is Is available under encounters/interface Review Flowsheet [facility] Transition of Care Documentation Type of Visit Date of Admission/Visit Date of Discharge Facility Diagnosis Disposition 06/21/2024 9:28 AM Hospital Admission 06/18/2024 06/20/2024 [facility] Brain Lesion Discharged Home 08/02/2024 4:06 PM Hospital Admission 07/30/2024 08/02/2024 [facility] chronic SOPD Discharged Home 01/10/2025 11:00 AM Emergency Department 01/08/2025 01/08/2025 [facility] Discharged Home 01/31/2025 10:00 AM Emergency Department 01/30/2025 01/30/2025 [facility] Left hemiparesis, Tenderness of back, Recurrent falls Discharged Home Recent Visits Date Type Provider Dept 01/10/25 Office Visit Kiel Shaffer MD [facility] Medicine 12/24/24 Office Visit Victorino Graves MD [facility] 12/13/24 Office Visit Lorenzo Chavez MD [facility] 11/06/24 Office Visit Lorenzo Chavez MD [facility] 11/01/24 Office Visit Sarita Gonzalez MD [facility] 10/09/24 Office Visit Sarita Gonzalez MD [facility] 10/02/24 Office Visit Victorino Graves MD [facility] 09/05/24 Office Visit Sravanthi Robbins MD [facility] 09/03/24 Office Visit Sergio Alexander MD [facility] 08/20/24 Office Visit Kiel Shaffer MD [facility] Medicine Showing recent visits within past 365 days with a meds authorizing provider and meeting all other requirements Future Appointments Date Type Provider Dept 02/06/25 Appointment QAMAR Crespo [facility] Medicine 02/08/25 Appointment Katlyn Rodriguez PharmD [facility] Medicine 03/13/25 Appointment Kiel Shaffer MD [facility] Medicine 04/10/25 Appointment Kiel Shaffer MD [facility] Medicine Showing future appointments within next 150 days with a meds authorizing provider and meeting all other requirements Patient was educated on hours of operation. documented in this encounter Plan of Treatment Upcoming Encounters Date Type Department Care Team (Late st Contact Info) Description 02/06/2025 2:30 PM EST Office Visit [address] [address] Mary Jo Perez FNP [address] [place] [address] 02/08/2025 9:30 AM EST Medication Management [address] [address] Katlyn Rodriguez PharmD [address] [place] [address] 03/13/2025 11:30 AM EST Telemedicine [address] [address] Kiel Shaffer MD [address] [place] [address] 04/10/2025 10:45 AM EST Office Visit [address] [address] Kiel Shaffer MD [address] [place] [address] 05/31/2025 11:00 AM EDT Telemedicine [address] [address] Opal Steiner RN documented as of this encounter Goals Goal Patient Goal Type Associated Problems Recent Progress Patient-Stated? Author Record your blood pressure once per day Blood Pressure No Puia, Katlyn, PharmD Blood Pressure < 140/90 Blood Pressure 138/92(2024 12:02 PM EST) No Puia, Katlyn, PharmD Hemoglobin [...] Plan Patient has chronic kidney disease No Adenia, Katlyn, PharmD Weekly blood pressure task Care [...] Care Plan Weekly blood pressure task No Avel Phillips Rosario Patient has chronic kidney disease Care Plan Patient has chronic kidney disease No Avel Phillips Rosario Patient has chronic kidney disease Care Plan Patient has chronic kidney disease No Colon Phillips Rosario Weekly blood pressure task Care Plan [...] Weekly blood pressure task No Opal Steiner, RN Patient has chronic [...] Plan Patient has chronic kidney disease No ToroFreedom ortegaLeny Patient has chronic kidney [...] Care Plan Weekly blood pressure task No Flora Christianson, RN Weekly blood pressure task Care Plan Weekly blood pressure task No Flora Christianson, RN Patient has chronic kidney disease Care Plan Patient has chronic kidney disease No Flora Christianson, RN Patient has chronic kidney disease Care Plan Patient has chronic kidney disease No Flora Christianson, MARINA Weekly blood pressure task Care Plan Weekly blood pressure task No Rosario Vu Weekly blood pressure task Care Plan Weekly blood pressure task No Rosario Vu Patient has chronic kidney disease Care Plan Patient has chronic kidney disease No Rosario Vu Patient has chronic kidney disease Care Plan Patient has chronic kidney disease No Rosario Vu documented as of this encounter Visit Diagnoses Diagnosis Hemiparesis of left dominant side as late effect of cerebral infarction (CMS/HCC) (HCC) Recurrent falls Tenderness of back documented in this encounter Additional Health Concerns [...] 01/28/2025 Patient has chronic kidney disease 01/28/2025 Weekly blood pressure task 01/30/2025 Weekly blood pressure task 01/30/2025 Patient has chronic kidney disease 01/30/2025 Patient has chronic kidney disease 01/30/2025 Weekly blood pressure task 01/30/2025 Weekly blood pressure task 01/30/2025 Patient has chronic kidney disease 01/30/2025 Patient has chronic kidney disease 01/30/2025 Weekly blood pressure task 01/30/2025 Weekly blood pressure task 01/30/2025 Patient has chronic kidney disease 01/30/2025 Patient has chronic kidney disease 01/30/2025 Weekly blood pressure task 01/31/2025 Weekly blood pressure task 01/31/2025 Patient has chronic kidney disease 01/31/2025 Patient has chronic kidney disease 01/31/2025 Weekly blood pressure task 01/31/2025 Weekly blood pressure task 01/31/2025 Patient has chronic kidney disease 01/31/2025 Patient has chronic kidney disease 01/31/2025 Assessment Noted Time PHQ-9 Depression Total Score: 7 09/05/19 25 11:46 AM EDT documented as of this encounter Care Teams Industrial Editor Relationship Specialty Start Date End Date Name, MD Kiel [address] [place], [place] [phone] PCP - General Family Medicine 07/15/15 Katlyn Rodriguez, Bin [address] [place], [place] [phone] Pharmacist Internal Medicine 10/08/22 Ania Spencer 01/30/25 Marta Ovalle Transfer Iron OperatorCredit Reporter 05/25/23 documented as of this encounter
--- OUTSIDE RECORDS SUMMARY | 2025-01-31 14:15 | XMS_ITS | Encounter Summary ---
Author Organization [facility] Address [address] [place] [phone] Care Team Providers Care Professional Model Name Role Phone Name, Kiel BAILEY Primary Care Provider [phone] Encounter Details Date Type Department Care Team ([facility] Contact Info) Description 01/31/2025 2:15 PM EST Office Visit Orthopedic Surgery - [place] [address] [phone] Wesley Garcia DPM [address] [phone] Acquired hammer toe of right foot (Primary [...] Hypertriglyceridemia E78.1 Diabetes mellitus type II, uncontrolled [id number] Morbid obesity ([facility]) E66.01 Depression F32.A Asthmatic bronchitis , chronic ([facility]) J44.89 Low back pain radiating to left leg M54.50, M79.605 Cocaine abuse, episodic use ([facility]) F14.10 Insomnia G47.00 DRE (obstructive sleep apnea) [...] was seen and examined, history reviewed. Recommend [id number] clotrimazole Simply worsening hammertoe contracture forms with [...] of daily foot checks. Continue with lidocaine [id number] Referral offered statuary painter patient declined I reviewed neuropathy and why [...] PM EDT Office Visit Orthopedic Surgery - [place] [address] [phone] Wesley Garcia, DPM [address] [phone] documented as of this encounter Visit Diagnoses [...] foot documented in this encounter Care Teams Professional Model Relationship Specialty Start Date End Date Name, MD Kiel 4 [place], [place] PCP - General Internal Medicine 08/28/15 documented as of this encounter
--- NOTE | ~2025-02-04 | MR_ITS ---
EXAMINATION: MR BRAIN WITHOUT CONTRAST CLINICAL INFORMATION: Right hand weakness. COMPARISON: None available. TECHNIQUE: Axial DWI sequence. Axial ADC map. Axial FLAIR sequence.. Axial T1 sequence. Axial T2 sequence. Sagittal T1 sequence. FINDINGS: There is a an extra-axial, 2 mm maximal thickness, intrinsic hyperintense T1 and FLAIR, crescent-shaped signal abnormality along the right temporal convexity. No mass effect, midline shift, hydrocephalus or herniation. Hyperintense diffusion signal extending from the posterior limb both the internal capsule into the midbrain with isointense to decreased ADC map corresponding signal. There is hyperintense T2 FLAIR signal within the posterior limb of internal capsule into the midbrain signal abnormality and subtle in the ventral medulla oblongata with the volume loss in the right cerebral peduncle and mild prominent morphology of the left cerebral peduncle. Flow-void signal within the main cerebral vessels is normal. Craniocervical junction demonstrates normal position of the cerebellar tonsils. Sellar/suprasellar region is normal. MR/MR head/brain wo con IMPRESSION: 2 mm, crescent-shaped , Late subacute subdural hemorrhage, right temporal convexity. Progressive hyperintense T2 FLAIR signal abnormality from the posterior limb internal capsule into midbrain, ventral geovany ventral medulla oblongata and splenium corpus callosum. Consider metabolic disorder such as hypoglycemia encephalopathy other etiologies such as inflammatory versus infectious versus neoplasm should be included in the differential diagnosis.. Electronically signed by: Felix Fall MD 02/06/2025 08:58 AM RAYNA
--- NOTE | ~2025-02-04 | CT_ITS ---
CLINICAL HISTORY: right arm weakness CT head without contrast Comparison: CT/REG/SR - CT HEAD/BRAIN WO IV CON - 01/29/25 20:08 EST Findings: No intra-axial mass, midline shift, hydrocephalus, or acute hemorrhage. No significant atrophy-like change or white matter disease. There is no sinus or mastoid fluid. The orbits are within normal limits. There is no acute fracture. IMPRESSION: 1. No acute intracranial findings. This document has been electronically signed by: Julian Hung MD on 02/04/2025 17:22:37
--- NOTE | ~2025-02-04 | XR_ITS ---
EXAMINATION: XR CHEST CLINICAL INFORMATION: chest pain + dizziness COMPARISON: 01/08/2025 TECHNIQUE: 2 views of the chest were obtained. FINDINGS: Short linear densities in the left lung base likely represent atelectasis. The lungs are mildly hypoaerated. Lungs are clear. No pneumothorax is identified. Cardiac and mediastinal contours are unremarkable. There is no sign of pleural effusion. XR/XR chest 2V IMPRESSION: Subsegmental left basilar atelectasis. Electronically signed by: Zohaib Murray MD 02/04/2025 01:22 PM RAYNA
--- NOTE | ~2025-02-04 | US_ITS ---
EXAMINATION: BILATERAL CAROTID ULTRASOUND WITH DOPPLER HISTORY: ?CVA COMPARISON: There are no prior studies available for comparison. TECHNIQUE: Real time and Color and Spectral doppler ultrasonography of the carotid and vertebral arteries was performed in multiple planes. FINDINGS: A small amount of plaque is seen on the left. VERTEBRAL FLOW DIRECTION: Antegrade bilaterally. PEAK SYSTOLIC VELOCITIES (in cm/sec): RIGHT: CCA: Prox: 99 Dist: 59 ICA: Prox: 48 Mid: 58 Dist: 68 ICA/CCA Ratio: 0.49 ECA: 55 Peak ICA end diastolic velocity (EDV): 24 LEFT: CCA: Prox: 86 Dist: 87 ICA: Prox: 69 Mid: 79 Dist: 75 ICA/CCA Ratio: 0.79 ECA: 81 Peak ICA end diastolic velocity (EDV): 31 US/US carotid duplex BI IMPRESSION: Findings consistent with 0-49% stenosis of the left internal carotid artery. No significant stenosis on the right. Electronically signed by: Kenny Fernandes MD 02/05/2025 09:32 AM EST
--- NOTE | ~2025-02-04 | CT_ITS ---
CLINICAL HISTORY: severe abd pain CT abdomen and pelvis without contrast Comparison: 01/29/2025 Findings: Motion artifact somewhat limits interpretation. There is faint left basilar density. The liver, gallbladder, spleen, adrenal glands and pancreas demonstrate no acute process. Nonobstructing 5 mm calculus within the left kidney. Left-sided extrarenal pelvis noted. No obstructive uropathy or ureteral calculus. The bladder is unremarkable. Moderate fecal retention throughout the colon. No bowel obstruction or free air. Mild atherosclerotic disease. No acute osseous finding. Impression: Faint patchy left basilar density. Correlation for pneumonia. Nonobstructing left renal calculus. Moderate colonic fecal retention. This document has been electronically signed by: Miguel Angel Diaz MD on 02/05/2025 05:20:54
--- NOTE | ~2025-02-04 | FL_ITS ---
EXAMINATION: XR LUMBAR PUNCTURE CLINICAL INFORMATION: lumbar pucture requested by neuro Dr Nuno COMPARISON: None available. TECHNIQUE: Following explaining fluoroscopy-guided lumbar puncture 2 patient's daughter via phone and son present during exam, a written consent was obtained from the son. Patient was placed prone on fluoroscopy table and L4-5 disc level was marked on the skin. The skin area was prepped and draped in usual sterile manner. 1% lidocaine was administered. A 20-gauge spinal needle was advanced from the skin intrathecally at L4-5 disc level. No fluid could be obtained. Subsequently 1% lidocaine was administered on the skin posterior to L3-4 disc level. A 20-gauge spinal needle was advanced from the skin intrathecally at the L3-4 disc level. Stylet was removed and CSF flow was visualized. CSF was collected in 4 test tubes. After obtaining adequate amount of CSF, stylet was reintroduced and needle withdrawn. Complete hemostasis achieved at puncture site. Sterile Band-Aid applied postprocedure. Patient tolerated procedure extremely well. FINDINGS: On visualized images there is mild spondylosis at the L3-4 disc level. No lytic or sclerotic process seen. There is a dry tap at the L4-5 disc level which was slightly hemorrhagic. CSF collected from the L3-4 disc level resulted in pinkish CSF fluid on the first past tube. The subsequent test tubes are clear. CSF pressure was not requested and not performed FLUOROSCOPY TIME: 4 minute 17 seconds DOSE AREA PRODUCT: 361.0 uGy-m2 (microgray-meter squared) FL/FL guided lumbar puncture LP IMPRESSION: Successful ultrasound-guided lumbar puncture performed at the L3-4 disc level. Electronically signed by: Garry Pollock MD 02/06/2025 10:14 AM RAYNA
--- OUTSIDE RECORDS SUMMARY | 2025-02-04 11:30 | XMS_ITS | Encounter Summary ---
Author Organization [employer] Address [address] [facility] [address] [place] [address] Care Team Providers Care Maintenance Mechanic Helper Name Role Phone Name, Kiel BAILEY Primary Care Provider [phone] Katlyn Rodriguez PharmD Unavailable [phone] Ania Spencer Unavailable Reason for Visit * Reason Comments AUDIT INTERN RV Encounter Details Date Type Department Care Team (Latest Contact Info) Description 02/04/2025 11:30 AM EST Clinical Support [facility] [address] [place] [address] Opal Steiner, MARINA Long-term current use of opiate analgesic Social [...] Sign Reading Time Taken Comments Blood Pressure 138/92 02/04/2025 12:02 PM EST Pulse 114 02/04/2025 12:02 PM EST Temperature - - Respiratory Rate - - Oxygen Saturation - - Inhaled Oxygen Concentration - - Weight - - Height - - Body Mass Index - - documented in this encounter Progress Notes * Opal Steiner RN - 02/04/2025 11:30 AM EST SUBJECTIVE: Sarita Puga is a 59 y.o. year old female who presents for AUDIT INTERN RV . Pt arrived in wheelchair and was accompanied by her daughter, Preferred language for medical information: Upper Sorbian Interpreted needed: No. Daughter assisted with translation when needed. Sarita Puga does not report adherence to Oxycodone 10 mg, take 1 tablet every 8 hours PRN, last refilled 01/11/2025. Pt stated she's been taking 1.5 pills 3 times a day. The patient last took Oxycodone on: 02/04/25 Medication is: 50% % effective at alleviating pain. 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 Pt stating she wants to go to rehab, she feels badly about family having to care for her. Daughter stated that OT/PT wont start until they receive theMRI results. 01/31/25 - Pt received Lorazepam 2mg X1 from Dr Villaseñor at [facility] prior to her MRI. OBJECTIVE: TREE WARDEN checked: 02/04/2025 Pill count completed for Oxycodone , count today is 1 , anticipated count should be 11, this is notas expected. Reviewed Oxycodone order with patient. Advised patient ad daughter she should only be using 1 tablet every 8 hours as needed for pain. Reviewed her refill date is 02/08/25. Vital Signs Heart Rate: (!) 114 BP: (!) 138/92 BP Location: Right arm Patient Position: Sitting Pain Score: 8 Pain Loc: Back Pain Education: Yes Additional pain site: right arm numbness and weakness, c/o headache since 02/03/25. Last PCP visit: 01/10/2025 Controlled substance agreement signed: Controlled Substance Agreement 11/15/2024 AUDIT INTERN Tier: 3, per PCP patient should now have Tele visits moving forward Current Medications[1] Smoking status: Yes, 2 packs per day ETOH use: Yes, 6 beers every weekend Illicit substances: Denies Marijuana use: Yes, smokes daily, Marijuana card: No , Marijuana Acquired from: Dispensary Lab Results Component Value Date POCTHC Positive 11/15/2024 POCCOCAINEUR Negative 11/15/2024 POCOPIATEUR Negative 11/15/2024 DOAUR Negative 11/15/2024 POCAMPHETAMI Negative 11/15/2024 POCBENZODIUR Negative 11/15/2024 POCBARBSCRN Negative 11/15/2024 POCMETHADOUR Negative 11/15/2024 POCBUPSCRN Negative 11/15/2024 POCTCAUR Negative 11/15/2024 POCMDMAUR Negative 11/15/2024 POCOXYCODONE Positive 11/15/2024 POCPHENCYCUR Negative 11/15/2024 PROPOXUR Negative 11/15/2024 FENTANYLURIN Negative 11/15/2024 Dtr stated pt was not able to assist with transfer to toilet at this time. UTOX not obtained. ASSESSMENT: Encounter Diagnosis Name Primary? Long-term current use of opiate analgesic PLAN: Spoke with PCP regarding pts c/o right arm numbness/weakness and c/o headache since 02/03/25. Per PCP, pt should go to ER to be evaluated. Spoke at length with patient and daughter, both were strongly advised to go to ER to r/o further neurological issues. Pt stated she just wants to go home and rest. Daughter stated she will talk to her mom more about going after they leave. Information on pain group given: Previously discussed Information on acupuncture given: Previously discussed Narcan education provided: Previously discussed Narcan prescription: active Information on pain group given: Previously discussed Will update PCP re pts declining ER evaluation today, oxycodone pill count, UTOX not obtained and send request for Oxycodone refill to PCP. Sarita Puga will continue taking medication as prescribed and follow up at the next AUDIT INTERN visit orsooner if needed. Sarita Puga has verbalized understanding of care plan. Future Appointments Date Time Provider Department Center 02/06/2025 2:30 PM QAMAR Crespo MEDICINE [facility] 02/08/2025 9:30 AM Katlyn Rodriguez PharmD [facility] 03/13/2025 11:30 AM Kiel Shaffer MD [facility] 04/10/2025 10:45 AM Kiel Shaffer MD [facility] 05/31/2025 11:00 AM Opal Steiner, RN [facility] Opal Steiner, RN [1] Current Outpatient Medications: oxyCODONE (Roxicodone) 10 MG immediate release tablet, TAKE 1 TABLET BY MOUTH THREE TIMES DAILY FOR28 DAYS, Disp: 84 tablet, Rfl: 0 acetaminophen (Tylenol 8 Hour) 650 MG ER tablet, TAKE 1 TABLET BY MOUTH EVERY 8 HOURS NEEDED FORMODERATE PAIN OR FOR HEADACHE, Disp: 50 tablet, Rfl: 1 Advair HFA 115-21 MCG/ACT inhaler, , Disp: , Rfl: Alcohol Swabs (Alcohol Prep) 70 % pads, [...] 11 Icosapent Ethyl (Vascepa) 1 g capsule, TAKE 2 CAPSULES BY MOUTH TWICE DAILY IN THE MORNING AND EVENING WITH MEALS, Disp: 360 capsule, Rfl: 3 insulin glargine (Lantus SoloStar) 100 UNIT/ML pen, Inject 50 Units under the skin at bedtime., Disp: 15 mL, Rfl: 1 ipratropium-albuterol (Combivent Respimat) 20-100 MCG/ACT inhaler, Inhale 1 puff every 6 (six) hours. inhale 1 puff by inhalation route 4 times every day ; may take additional puffs as needed not to exceed 6 puffs in 24hrs, Disp: , Rfl: lidocaine (Lidoderm) 5 % patch, APPLY 1 PATCH TOPICALLY TO SKIN, LEAVE ON FOR 12 HOURS AND OFF FOR 12 HOURS DIRECTED, Disp: 30 patch, Rfl: 1 losartan (Cozaar) 50 MG tablet, TAKE 1 TABLET BY MOUTH EVERY MORNING, Disp: 90 tablet, Rfl: 3 metFORMIN XR (Glucophage-XR) 500 MG 24 hr tablet, Take 1 tablet (500 mg) by mouth at bedtime., Disp: 90 tablet, Rfl: 3 metoprolol succinate XL (Toprol-XL) 25 MG 24 hr tablet, Take 1 tablet (25 mg) by mouth at bedtime. Do not crush or chew., Disp: 90 tablet, Rfl: 3 Misc. Devices (Ezy Dose Pill Cutter) [facility], Use to cut tablets in half, Disp: , Rfl: montelukast (Singulair) 10 MG tablet, Take 1 tablet (10 mg) by mouth at bedtime., Disp: 90 tablet, Rfl: 3 naloxone (Narcan) 4 mg/0.1 mL nasal spray, Administer 1 spray (4 mg) into affected nostril(s) if needed for opioid reversal., Disp: 2 each, Rfl: 2 nitroglycerin (Nitrostat) 0.4 MG SL tablet, , [...] day., Disp: 90 tablet,Rfl: 1 TechLite Pen [place] 32G X 4 MM [facility], USE DIRECTED FOUR TIMES DAILY, Disp: 100 each, Rfl: 11 Tirzepatide (Mounjaro) 15 MG/0.5ML solution auto-injector, Inject 15 mg under the skin 1 (one) timeper week., Disp: 2 mL, Rfl: 11 traZODone (Desyrel) 100 MG tablet, Take 1 tablet (100 mg) by mouth if needed at bedtime for sleep.,Disp: 30 tablet, Rfl: 3 TRUEplus Lancets 33G [facility], Use to test blood sugar twice daily as directed, Disp: 100 each, Rfl: 11 Varenicline Tartrate, Starter, (Chantix Starting Month ) 0.5 MG X 11 & 1 MG X 42 tablet therapy pack, Take 0.5 mg by mouth Once per day for 3 days, THEN 0.5 mg 2 times daily for 4 days, THEN 1mg 2 times daily., Disp: 53 each, Rfl: 0 Ventolin HFA 108 (90 Base) MCG/ACT inhaler, INHALE 2 PUFFS BY MOUTH EVERY 4 TO 6 HOURS NEEDED FOR WHEEZING, Disp: 18 g, Rfl: 5 documented in this encounter Plan of Treatment Upcoming Encounters Date Type Department Care Team (Late st Contact Info) Description 02/06/2025 2:30 PM EST Office Visit [address] [address] Mary Jo Perez FNP [address] [place] [id number] 02/08/2025 9:30 AM EST Medication Management [address] [address] Katlyn Rodriguez PharmD [address] [place] [phone] 03/13/2025 11:30 AM EST Telemedicine [address] [phone] NameKiel MD [address] [place] [phone] 04/10/2025 10:45 AM EST Office Visit [address] [address] NameKiel MD [address] [place] [phone] 05/31/2025 11:00 AM EDT Telemedicine [address] [address] Opal Steiner, RN documented as of this encounter Goals Goal Patient Goal Type Associated Problems Recent Progress Patient-Stated? Author Record your blood pressure once per day Blood Pressure No PuiaReidKatlyn, PharmD Blood Pressure < 140/90 Blood Pressure 138/92(2024 12:02 PM EST) No PuiaReidKatlyn, PharmD Hemoglobin A1c < [...] Plan Weekly blood pressure task No Colon Alan Rosario Weekly blood pressure [...] Weekly blood pressure task No Freedom Torolanda Patient has chronic kidney [...] Patient has chronic kidney disease No Obdulia, Oapl, RN Patient has chronic kidney disease Care [...] Plan Patient has chronic kidney disease No ToroKatarzyna ortegaa Patient has chronic kidney disease Care Plan [...] Weekly blood pressure task No Flora Christianson, MARINA Weekly blood pressure [...] task Care Plan Weekly blood pressure task IncheliumKiel Shaffer MD Weekly blood pressure task Care Plan Weekly blood pressure task IncheliumKiel Shaffer MD Patient has chronic kidney disease Care Plan Patient has chronic kidney disease IncheliumKiel Shaffer MD Patient has chronic kidney disease Care Plan Patient has chronic kidney disease IncheliumKiel Shaffer MD Weekly blood pressure task Care Plan Weekly blood pressure task No Opal Steiner RN Weekly blood pressure task Care Plan Weekly blood pressure task No Opal Steiner RN Patient has chronic kidney disease Care Plan Patient has chronic kidney disease No Opal Steiner RN Patient has chronic kidney disease Care Plan Patient has chronic kidney disease Opal Gibson RN documented as of this encounter Visit Diagnoses Diagnosis Long-term current use of opiate analgesic Encounter [...] kidney disease 01/31/2025 Weekly blood pressure task 02/01/2025 Weekly blood pressure task 02/01/2025 Patient has chronic kidney disease 02/01/2025 Patient has chronic kidney disease 02/01/2025 Weekly blood pressure task 02/04/2025 Weekly blood pressure task 02/04/2025 Patient has chronic kidney disease 02/04/2025 Patient has chronic kidney disease 02/04/2025 Assessment Noted Time PHQ-9 Depression Total Score: 7 09/05/19 11:46 AM EDT documented as of this encounter Care Teams Maintenance Mechanic Helper Relationship Specialty Start Date End Date Name, MD Kiel [address] [place] [address] PCP - General Family Medicine 07/15/15 Katlyn Rodriguez PharmD [address] [place] [address] Pharmacist Internal Medicine 10/08/22 Ania Spencer 01/30/25 Marta Ovalle Concaving Machine OperatorDriller Brake Lining 05/25/23 documented as of this encounter
--- NOTE | 2025-02-04 12:46 | ED.GENADULT ---
HPI - General Adult General Chief complaint: Dizziness Stated complaint: Headache, r sided weakness. hx of strokes Time Seen by Provider: 02/04/25 16:24 Source: patient and translator and interpreter Limitations: language barrier History of Present Illness ED Provider: HPI narrative: Patient presented to an outpatient clinic for sudden-onset headache accompanied by numbness and weakness of the right hand that began 6pm y while she was lying down at home (approx. 6 PM per patient). She reports inability to grasp objects with the right hand since onset and states the symptoms have persisted without improvement. She was referred to the Emergency Department for further evaluation. She also reports chronic decreased sensation on the entire left side of her body (?doesn?t feel the left side anymore?) for which a brain MRI was obtained on 02-01; results were described to her as showing subtle abnormalities. Review of Systems: ? Constitutional: Positive for fatigue. ? Neurologic: Positive for right hand numbness and weakness; chronic decreased sensation on left side; patient-reported weakness of both lower extremities. ? Head: Positive for headache. No additional systems reviewed. Related Data Home Medications ?Medication ?Instructions ?Recorded ?Confirmed montelukast 10 mg tablet 10 mg PO BEDTIME 02/13/20 10/03/24 (Singulair) paroxetine HCl 40 mg tablet 40 mg PO BEDTIME 12/05/20 10/03/24 pen needle, diabetic 32 gauge x #50 ea 12/05/20 10/03/24 (Pentips Pen Needle) insulin glargine 100 unit/mL (3 36 unit subcut DAILY 05/26/21 10/03/24 mL) subcutaneous pen (Lantus Solostar U-100 Insulin) gabapentin 600 mg tablet 600 mg PO TID PRN Pain 04/21/22 10/03/24 lidocaine 5 % topical patch 1 patch topical DAILY PRN Pain 04/21/22 10/03/24 metoprolol succinate 25 mg 25 mg PO BEDTIME 04/21/22 10/03/24 tablet,extended release 24 hr oxcarbazepine 300 mg tablet 450 mg PO BEDTIME 04/21/22 10/03/24 clonidine HCl 0.1 mg tablet 0.1 mg PO BEDTIME 07/08/22 10/03/24 atorvastatin 80 mg tablet 80 mg PO BEDTIME 01/05/23 10/03/24 metformin 500 mg tablet,extended 500 mg PO BEDTIME 01/05/23 10/03/24 release 24 hr acetaminophen 650 mg 650 mg PO Q8H PRN Mild Pain (Scale 06/18/24 10/03/24 tablet,extended release Score 1-4) albuterol sulfate 2.5 mg/3 mL 2.5 mg inhalation Q4H PRN 06/18/24 10/03/24 (0.083 %) solution for nebulization shortness of breath or wheezing albuterol sulfate 90 mcg/actuation 2 puff inhalation Q4H PRN wheezing 06/18/24 10/03/24 aerosol inhaler (Ventolin HFA) baclofen 10 mg tablet 10 mg PO TID PRN muscle spasm 06/18/24 10/03/24 calcium 600 mg (as 1 tab PO BID 06/18/24 10/03/24 carbonate)-vitamin D3 5 mcg (200 unit) tablet cetirizine 10 mg tablet (Zyrtec) 10 mg PO DAILY 06/18/24 10/03/24 ezetimibe 10 mg tablet 10 mg PO DAILY 06/18/24 10/03/24 famotidine 20 mg tablet 20 mg PO BID 06/18/24 10/03/24 furosemide 20 mg tablet 20 mg PO DAILY 06/18/24 10/03/24 icosapent ethyl 1 gram capsule 2 g PO BID 06/18/24 10/03/24 losartan 50 mg tablet 50 mg PO DAILY 06/18/24 10/03/24 meloxicam 7.5 mg tablet 7.5 mg PO DAILY 06/18/24 10/03/24 oxcarbazepine 150 mg tablet 150 mg PO DAILY 06/18/24 10/03/24 tirzepatide 15 mg/0.5 mL 15 mg subcut FR 06/18/24 10/03/24 subcutaneous pen injector (Lurdes) trazodone 100 mg tablet 100 mg PO BEDTIME PRN insomnia 06/18/24 10/03/24 Previous Rx's ?Medication ?Instructions ?Recorded oxycodone 10 mg tablet 10 mg PO DAILY PRN headache #30 06/20/24 tabs fluticasone propionate 115 2 puff inhalation Q12H ASTHMA/COPD 09/12/24 mcg-salmeterol 21 mcg/actuation 30 days #12 grams HFA inhaler (Advair HFA) ibuprofen 600 mg tablet 600 mg PO Q6H PRN pain #12 tabs 10/06/24 pyridoxine (vitamin B6) 100 mg 100 mg PO DAILY 90 days #90 tabs 11/12/24 tablet ipratropium 20 mcg-albuterol 100 1 puff PO Q6H #4 grams 11/21/24 mcg/actuation mist for inhalation (Combivent Respimat) methocarbamol 750 mg tablet 750 mg PO BEDTIME #7 tabs 12/25/24 azithromycin 250 mg tablet See Rx Instructions PO .COMPLEX #6 01/08/25 (Zithromax Z-Wilmer) tabs prednisone 20 mg tablet 60 mg (3 x 20 mg) PO DAILY 5 days 01/08/25 #15 tabs lorazepam 2 mg tablet 2 mg PO DAILY PRN anxiety #1 tab 01/14/25 Allergies Allergy/AdvReac Type Severity Reaction Status Date / Time penicillin G (Penicillin G) Allergy Mild SWELLING Verified 02/04/25 12:50 barium sulfate (ORAL Allergy Unknown HIVES Verified 02/04/25 12:50 CONTRAST) cephalexin Allergy Unknown Unknown Verified 02/04/25 12:50 Review of Systems Constitutional: Constitutional: Reports as per HPI [facility] Past Medical History Medical History COPD (chronic obstructive pulmonary disease) Diabetes mellitus Brain lesion Reactive airway disease Coronary artery disease Insulin dependent type 2 diabetes mellitus Exposure to rabies Lymphoma Restrictive lung disease secondary to obesity Nocturnal hypoxemia DRE (obstructive sleep apnea) Cough Nicotine dependence, cigarettes, uncomplicated Allergic rhinitis Morbid obesity Hyperlipidemia GERD (gastroesophageal reflux disease) Tubular adenoma Chronic idiopathic constipation IBS (irritable bowel syndrome) Back pain Depression Surgical History History of total right knee replacement (TKR) History of appendectomy (~1978) History of (~1986) History of hysterectomy (~1995) History of lithotripsy (~2018) History of carpal tunnel surgery of right wrist (~2020) History of colonoscopy History of esophagogastroduodenoscopy (EGD) Family History Family History Mother Diabetes Heart muscle disorder caused by another medical condition Father Diabetes Epilepsy Sister No problems noted. Sister No problems noted. Sister No problems noted. Sister No problems noted. Sister No problems noted. Brother No problems noted. Brother No problems noted. Brother No problems noted. Brother No problems noted. Brother No problems noted. Brother No problems noted. Daughter No problems noted. Daughter No problems noted. Son No problems noted. Son No problems noted. Son No problems noted. Social History Social History Household Members: Other Household Members Other:: grandson Housing: Apartment Are you a primary animal care provider to a significant other at home: No Do you presently have visiting nurse or other home services: No Alcohol intake: current Alcohol intake frequency: does not drink Patient Tobacco Use Status: Current everyday Tobacco user Tobacco use type: Cigarette Cigarette Packs Per Day: 2 Cigarettes Per Day: 40.0 Years Smoked: (onset 13yo, x 42yrs, max 2ppd, now 1/2ppd - 30PYH) e-Cigarette/Vaping Use: Never Used Second Hand Smoke Exposure: No Substance Use Type: Marijuana Advance Directives: No Advance Directives Information Provided: Yes service: No Current occupational status: disabled Current occupation: rt handed Physical Exam ED Exam Exam: ? General: Alert, interactive, moved without acute distress. ? Neurologic: facial sensation and symmetry intact, visual knight vision is intact, cranial nerves 2-12 normal . 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 She is able to lift her right arm but distally although she is able to give me a thumbs up spread her fingers and squeeze my hand I will describe her strength approximately 4/5 Patient reports inability to grasp objects with the right hand since onset, though examiner notes ability to lift and spread fingers bilaterally. Able to lift her right leg off the gurney but not her left S1-S2 RRR Lungs without wheezing rales or crackles Abdominal exam with bowel sounds present, nontender nondistended Vital Signs: Vital Signs - 24 hr 02/04/25 12:48 02/04/25 16:27 02/04/25 19:09 Temperature 97 F 98.4 F 97.3 F Pulse Rate 73 70 70 Respiratory Rate 18 20 20 Blood Pressure 143/86 H 102/61 104/62 Pulse Oximetry 98 99 98 Oxygen Delivery Method Room Air Room Air Room Air 02/04/25 20:30 Temperature 97.6 F Pulse Rate 74 Respiratory Rate 20 Blood Pressure 118/50 L Pulse Oximetry 96 Oxygen Delivery Method Room Air BMI result Body Mass Index 42.0 Course Course Course Narrative: Rapid medical examination performed in triage by Natalie Martell PA-C: Patient is a 59 year old female presenting to the emergency department with a headache and right sided numbness / tingling. Detailed physical exam and review of systems are deferred to the benefits consulting analyst. EKG, labs, imaging, swabs ordered. Patient placed back in the waiting room pending room availability and results. Reevaluation(s) Reevaluation #1: 6:15 PM 02/04/2025 (Dr. Luis Daniel Velazquez): Case discussed with Dr. Villaseñor he recommends admission she will be seen tomorrow, CT brain negative IMPRESSION: 1. No acute intracranial findings. Medical Decision Making Medical Decision Making MDM Narrative: 4:57 PM 02/04/2025 (Dr. Luis Daniel Velazquez): : New-onset right hand weakness and numbness since yesterday; persistent symptoms; subtle abnormalities on 12-12 brain MRI. Exam confirms focal weakness with additional decreased strength in left upper extremity. Plan: Consult Neurology to review clinical findings and prior MRI,if avilable at this time to discuss non TNK related issues ( paged Dr. Villaseñor at this time ) Discuss potential need for hospital admission for further evaluation and monitoring. We will obtain CT noncontrast, there is really no clinical utility for CT angio of the brain due to at least 23 hours since the onset I am but at time imaging is done we will be over 24 hours for any LVO Provide patient with updates as results become available; ensure safety and close monitoring in ED pending disposition. Differential Diagnosis Differential Diagnoses: The differential diagnosis associated with the presentation includes Differential Diagnosis: Ischemic stroke: Considered due to the acute onset of focal neurologic deficits (right hand numbness and weakness) and persistent symptoms without improvement. Intracranial hemorrhage (bleed): Considered because sudden focal neurologic symptoms and headache could be due to a cerebral bleed. Trauma: Considered as a potential cause of acute neurologic changes, though no clear history of trauma was elicited. Peripheral neuropathy: Considered given the sensory and motor deficits, though the acute onset and focal nature make central causes more likely. Seizure disorder: Considered as post-ictal weakness (Milo's paralysis) can present with acute focal deficits, though no witnessed seizure activity was reported. Admission/Observation Consideration of admission/observation: Escalation of care including admission/observation considered Consult Healthcare Provider Management of the patient was discussed with: Digital Producer (Dr. Villaseñor Neurology) Lab Data MDM Lab Attestation statement: I reviewed the patient's lab results. 02/04/25 13:01 02/04/25 13:01 Labs: Lab Results 02/04/25 Range/Units 13:01 WBC 6.0 (4.8-10.8) X10*3/uL RBC 4.87 (4.20-5.50) X10*6/uL Hgb 13.4 (12.0-16.0) g/dl Hct 40.2 (37.0-47.0) % MCV 82.5 (80.0-98.0) fL MCH 27.5 (27.0-33.0) pg MCHC 33.3 (31.0-35.0) g/dl RDW 12.8 (11.0-16.0) % Plt Count 170 D (160-400) X10*3/uL MPV 11.3 (9.4-12.3) fL Immature Gran % (Auto) 0.2 (0.0-0.4) % Neut % (Auto) 59.6 (45-73) % Lymph % (Auto) 30.4 (20-40) % [place] % (Auto) 7.6 (2-11) % Eos % (Auto) 1.5 (0-4) % Baso % (Auto) 0.7 (0-2) % Lymph # (Auto) 1.8 (1.2-4.9) X10*3/uL [place] # (Auto) 0.5 (0.1-1.2) X10*3/uL Eos # (Auto) 0.1 (0.0-0.4) X10*3/uL Baso # (Auto) 0.0 (0.0-0.2) X10*3/uL Abs Immat Gran (auto) 0.01 (0.00-0.03) X10*3/uL Absolute Neuts (auto) 3.6 (2.0-8.3) x10*3/uL Absolute Nucleated RBC 0.000 (0.0-0.012) X10*3/uL Nucleated RBC % (auto) 0.0 (0.0-0.2) /100WBC PT 12.9 (11.2-13.5) SEC INR 1.1 (0.9-1.1) Sodium 140 (135-145) mmol/L Potassium 4.0 (3.3-5.1) mmol/L Chloride 107 (96-108) mmol/L Carbon Dioxide 25 (22-29) mmol/L Anion Gap 12 (12-20) BUN 17 H (9-16) mg/dL Creatinine 0.48 L (0.5-1.4) mg/dL Estim Creat Clear Calc 148.2 Estimated GFR > 60 Random Glucose 104 (60-115) mg/dL Calcium 9.8 D (8.4-10.2) mg/dL Magnesium 1.9 (1.6-2.6) mg/dL Total Bilirubin 0.6 (0.0-1.0) mg/dL AST 20 (5-31) U/L ALT 32 H (0-31) U/L Alkaline Phosphatase 77 (39-117) U/L Troponin I High Sens < 2.7 (<3.5-17.0) ng/L Total Protein 6.9 (6.5-8.0) g/dL Albumin 4.5 (3.5-5.0) g/dL Influenza Type A (PCR) NEGATIVE (Negative) Influenza Type B (PCR) NEGATIVE (Negative) RSV RNA Qual (PCR) NEGATIVE (Negative) SARS-CoV-2 RNA (RT-PCR) NEGATIVE (Negative) Independent Interpretation I performed an independent interpretation of an: Plain X-Ray (My independent chest xray interpretation: Lungs: Lungs are clear bilaterally without evidence of focal consolidation, pleural effusion, or pneumothorax. Cardiac silhouette is unremarkable, no obvious mediastinal widening, no obvious bony abnormalities such as fractures. Impression: Normal chest X-r) Radiology Impression Discussion of test interpretation with radiology: I have reviewed the radiologist's reading. ( XR/XR chest 2V IMPRESSION: Subsegmental left basilar atelectasis. ) Radiologist Impression: 02/01/25 Brain MRI Limited exam. Consider cytotoxic lesions of corpus callosum related to seizures versus metabolic disturbances versus infectious versus malignancy versus drug related and or toxins related. Vascular versus autoimmune disorders should be considered.. External Record Review External record reviewed: Office record Tests considered The following testing was considered but not selected: CT angio brain and neck Chronic Conditions Patient?s care impacted by: Diabetes and Hypertension Critical Care Time Critical Care Time Critical Care Time: Yes Total Critical Care Time: 32 Attestation: Time is exclusive of separately billable procedures. Time includes: direct patient care, patient reassessment, coordination of patient care, interpretation of data (laboratory data, pulse oximetry, arterial blood gases and chest xrays), review of patient's medical records, medical consultation and documentation of patient care. Procedures excluded from critical care time: central intravenous line placement and electrocardiography. Discharge Plan Discharge Clinical Impression: Right arm weakness, Abnormal finding of diagnostic imaging, Headache, unspecified
--- NOTE | 2025-02-04 12:47 | ECG_ITS ---
Test Reason : ARM PAIN Blood Pressure : */* mmHG Vent. Rate : 68 BPM Atrial Rate : 68 BPM P-R Int : 150 ms QRS Dur : 88 ms QT Int : 372 ms P-R-T Axes : 14 -13 -10 degrees QTcB Int : 395 ms Normal sinus rhythm Moderate voltage criteria for LVH, may be normal variant ( R in aVL , Quinn product ) Borderline ECG When compared with ECG of 29-Jan-2025 19:42, No significant change was found Referred By: Natalie Martell Electronically Signed By: Fercho Torres
[2025-02-04 12:48] VITALS: BP 143/86; PULSE 73; RESP 18; TEMP 36.1; O2SAT 98; BMI 42.0
[2025-02-04 13:05] LABS: MANUAL DIFF FLAG NO
[2025-02-04 13:08] LABS: Hematocrit 40.2 % (37.0-47.0); Hemoglobin 13.4 g/dl (12.0-16.0); Imm Gran Abs Auto 0.01 X10*3/uL (0.00-0.03); Imm Gran Pct Auto 0.2 % (0.0-0.4); Lymphocytes Absolute Auto 1.8 X10*3/uL (1.2-4.9); Mean Corpuscular HGB Conc 33.3 g/dl (31.0-35.0); Mean Corpuscular Hemoglobin 27.5 pg (27.0-33.0); Mean Corpuscular Volume 82.5 fL (80.0-98.0); NRBC Abs Auto 0.000 X10*3/uL (0.0-0.012); NRBC Pct Auto 0.0 /100WBC (0.0-0.2); Platelet Count 170 X10*3/uL (160-400); Red Blood Count 4.87 X10*6/uL (4.20-5.50); White Blood Count 6.0 X10*3/uL (4.8-10.8)
[2025-02-04 13:16] LABS: INTERNATIONAL NORM RATIO 1.1 (0.9-1.1); Prothrombin Time 12.9 SEC (11.2-13.5)
[2025-02-04 13:23] LABS: Alanine Aminotransferase 32 U/L (0-31); Albumin Level 4.5 g/dL (3.5-5.0); Alkaline Phosphatase 77 U/L (39-117); Anion Gap 12 (12-20); Aspartate Amino Transferase 20 U/L (5-31); Blood Urea Nitrogen 17 mg/dL (9-16); Calcium 9.8 mg/dL (8.4-10.2); Carbon Dioxide 25 mmol/L (22-29); Chloride 107 mmol/L (96-108); Creatinine Clr Calc Pharmacy 148.2; Estimated Glomerular Filt Rate > 60; Magnesium 1.9 mg/dL (1.6-2.6); Potassium 4.0 mmol/L (3.3-5.1); Sodium 140 mmol/L (135-145); Total Protein 6.9 g/dL (6.5-8.0)
[2025-02-04 13:30] LABS: Troponin-I High Sensitivity < 2.7 ng/L (<3.5-17.0)
[2025-02-04 13:42] LABS: Resp Syncy Virus RNA Qual PCR NEGATIVE (Negative); SARS COV2 PCR INHOUSE NEGATIVE (Negative)
[2025-02-04 16:27] VITALS: BP 102/61; PULSE 70; RESP 20; TEMP 36.9; O2SAT 99
--- OUTSIDE RECORDS SUMMARY | 2025-02-04 18:55 | XMS_ITS | Encounter Summary ---
Author Organization [employer] [facility] Prior to 12/23/2023 Address [address] [place] [address] Care Team Providers Care Casting Room Operator Name Role Phone Name, Kiel BAILEY Primary Care Provider Unavailabl e Name, Kiel BAILEY Primary Care Provider Unavailabl e Philly Vela DO Primary Care Pro vider Unavailable Name, Kiel BAILEY Primary Care Provider Unavailabl e Encounter Details Date Type Department Care Team Description 03/24/2012 Transfer Records Medical Records [address] [place] [id number] Abstract, Provider Social History Tobacco Use Types [...] on filedocumented in this encounter Care Teams Casting Room Operator Relationship Specialty Start Date End Date Kiel Shaffer MD PCP - General 05/26/09 04/27/15 Kiel Shaffer MD PCP - General Internal Medicine 04/28/15 05/05/15 Philly Vela DO PCP - General Internal Medicine 05/06/15 08/27/15 Kiel Shaffer MD PCP - General Internal Medicine 08/28/15 documented as of this encounter
--- OUTSIDE RECORDS SUMMARY | 2025-02-04 18:55 | XMS_ITS | Encounter Summary ---
Author Organization [employer] [facility] Prior to 12/23/2023 Address [address] [place] [address] Care Team Providers Care Learning Program Manager Name Role Phone Name, Kiel BAILEY Primary Care Provider Unavailabl e Name, Kiel BAILEY Primary Care Provider Unavailabl e Philly Vela DO Primary Care Pro vider Unavailable Name, Kiel BAILEY Primary Care Provider Unavailabl e Encounter Details Date Type Department Care Team Description 04/05/2012 Music Ministries Director Report Medical Records [address] [place] [id number] Susan Yee Social History Tobacco Use Types [...] on filedocumented in this encounter Care Teams Learning Program Manager Relationship Specialty Start Date End Date Kiel Shaffer MD PCP - General 05/26/09 04/27/15 Kiel Shaffer MD PCP - General Internal Medicine 04/28/15 05/05/15 Philly Vela DO PCP - General Internal Medicine 05/06/15 08/27/15 Kiel Shaffer MD PCP - General Internal Medicine 08/28/15 documented as of this encounter
--- OUTSIDE RECORDS SUMMARY | 2025-02-04 18:55 | XMS_ITS | Encounter Summary ---
Author Organization [employer] Address [address] [place] [address] 7[address] [place] [address] Care Team Providers Care Digital Court Reporter Name Role Phone Name, Kiel BAILEY Primary Care Provider Katlyn Rodriguez PharmD Unavailable Nehal Ann RN Unavailable Unavailable Ania Spencer Unavailable Opal Carrasquillo Unavailable Catrachito Spencerda Unavailable Tj, Ania Unavailable Tj Ania Unavailable Encounter Details Date Type Department Care Team (Late st Contact Info) Description 05/01/2024 Telephone [facility] [address] [place], [place] [phone] Name, MD Kiel [address] [place], [place] [phone] Social History Tobacco Use Types Packs/Day Years [...] Description 02/06/2025 2:30 PM EST Office Visit [facility] [address] [place] [phone] Mary Jo Perez FNP [address] [place] [address] 02/08/2025 9:30 AM EST Medication Management [facility] [address] [place] [phone] Puia, Katlyn, PharmD [facility] [place] [address] 03/13/2025 11:30 AM EST Telemedicine [address] [place] [address] NameKiel MD [facility] [place] 04/10/2025 10:45 AM EST Office Visit [address] [place] [address] Name, MD Kiel Jai [place], [place] [phone] 05/31/2025 11:00 AM EDT Telemedicine [address] [phone] Opal Steiner RN documented as of this [...] as of this encounter Care Teams Digital Court Reporter Relationship Specialty Start Date End Date Name, MD Kiel [facility] [place] [address] PCP - General Family Medicine 07/15/15 Puia, Katlyn, [place] [address] Pharmacist Internal Medicine 10/08/22 Nehal Ann, RN [address] [place] [address] Registered Nurse Family Medicine 08/20/24 10/29/24 Ania Spencer 08/20/24 11/26/24 Opal Carrasquillo Registered Nurse 10/29/24 11/26/24 Ania Spencer 12/14/24 12/26/24 Ania Spencer 01/09/25 01/25/25 Ania Spencer 01/30/25 Marta Ovalle Tavern OperatorRug Cleaner 05/25/23 documented as of this encounter
--- OUTSIDE RECORDS SUMMARY | 2025-02-04 18:55 | XMS_ITS | Encounter Summary ---
Author Organization [email or web address] Address [address] [facility] 7t [place] [address] Care Team Providers Care Township Supervisor Name Role Phone Name, Kiel BAILEY Primary Care Provider Katlyn Rodriguez PharmD Unavailable [phone] Nehal Ann RN Unavailable Unavailable Ania Spencer Unavailable Opal Carrasquillo Unavailable [phone] Tj, Ania Unavailable Tj, Ania Unavailable Tj, Ania Unavailable Reason for Visit * Reason Comments Med Refill Encounter Details Date Type Department Care Team (Late st Contact Info) Description 09/07/2023 Refill [facility] [address] [place] [address] Name, MD Kiel [address] [place] [address] Type 2 diabetes mellitus with other specified [...] Description 02/06/2025 2:30 PM EST Office Visit [address] [address] Mary Jo Perez FNP [address] [place] [address] 02/08/2025 9:30 AM EST Medication Management [address] [address] Katlyn Rodriguez, PharmD [address] [place] [address] 03/13/2025 11:30 AM EST Telemedicine [address] [address] Name, MD Kiel [address] [place] [address] 04/10/2025 10:45 AM EST Office Visit [facility] [address] [place] [address] Kiel Shaffer MD [address] [place] [address] 05/31/2025 11:00 AM EDT Telemedicine [facility] [address] [place] [address] Opal Steiner RN documented as of this [...] documented as of this encounter Care Teams Township Supervisor Relationship Specialty Start Date End Date Kiel Shfafer MD [address] [place] [address] PCP - General Family Medicine 07/15/15 Puia, Katlyn, PharmD [address] [place] [address] Pharmacist Internal Medicine 10/08/22 Nehal Ann, MARINA [address] [place] [address] Registered Nurse Family Medicine 08/20/24 10/29/24 Ania Spencer 08/20/24 11/26/24 Opal Carrasquillo Registered Nurse 10/29/24 11/26/24 Ania Spencer 12/14/24 12/26/24 Ania Spencer 01/09/25 01/25/25 Ania Spencer 01/30/25 Marta Ovalle Life Cycle Assessment AnalystPipe Stress Engineer 05/25/23 documented as of this encounter
--- OUTSIDE RECORDS SUMMARY | 2025-02-04 18:55 | XMS_ITS | Encounter Summary ---
Author Organization [facility] Prior to 12/23/2023 Address [address] [place] [address] Care Team Providers Care Pci Security Consultant Name Role Phone Name, Kiel BAILEY Primary Care Provider Unavailabl e Name, Kiel BAILEY Primary Care Provider Unavailabl e Philly Vela DO Primary Care Pro vider Unavailable Name, Kiel BAILEY Primary Care Provider Unavailabl e Encounter Details Date Type Department Care Team Description 10/31/2009 Hospital Medical Records [address] [place] [phone] Hever Bush Social History Tobacco Use Types [...] on filedocumented in this encounter Care Teams Pci Security Consultant Relationship Specialty Start Date End Date Kiel Shaffer MD PCP - General 05/26/09 04/27/15 Kiel Shaffer MD PCP - General Internal Medicine 04/28/15 05/05/15 Philly Vela DO PCP - General Internal Medicine 05/06/15 08/27/15 Kiel Shaffer MD PCP - General Internal Medicine 08/28/15 documented as of this encounter
--- OUTSIDE RECORDS SUMMARY | 2025-02-04 18:55 | XMS_ITS | Encounter Summary ---
Author Organization [employer] [facility] Prior to 12/23/2023 Address [address] [place] [address] Care Team Providers Care Custom Designer Name Role Phone Name, Kiel BAILEY Primary Care Provider Unavailabl e Name, Kiel BAILEY Primary Care Provider Unavailabl e Philly Vela DO Primary Care Pro vider Unavailable Name, Kiel BAILEY Primary Care Provider Unavailabl e Encounter Details Date Type Department Care Team Description 03/16/2012 Release of Information Medical Records [address] [place] [id number] Abstract, Provider Social History Tobacco Use Types [...] on filedocumented in this encounter Care Teams Custom Designer Relationship Specialty Start Date End Date Kiel Shaffer MD PCP - General 05/26/09 04/27/15 Kiel Shaffer MD PCP - General Internal Medicine 04/28/15 05/05/15 Philly Vela DO PCP - General Internal Medicine 05/06/15 08/27/15 Kiel Shaffer MD PCP - General Internal Medicine 08/28/15 documented as of this encounter
--- OUTSIDE RECORDS SUMMARY | 2025-02-04 18:55 | XMS_ITS | Encounter Summary ---
Author Organization [employer] Address [address] [place] [address] 7[address] [place] [address] Care Team Providers Care Expansion Joint Finisher Name Role Phone Name, Kiel BAILEY Primary Care Provider Katlyn Rodriguez PharmD Unavailable [phone] Nehal Ann RN Unavailable Unavailable Ania Spencer Unavailable Opal Carrasquillo Unavailable [phone] Tj, Ania Unavailable Tj, Ania Unavailable Tj, Ania Unavailable Reason for Visit * Reason Comments Med Refill Encounter Details Date Type Department Care Team (Late st Contact Info) Description 04/15/2023 Refill [facility] [address] [place] [address] Yaneth Restrepo FNP [address] [place], [place] [id number] Diabetes mellitus type 2 in obese (CMS/HCC) [...] Description 02/06/2025 2:30 PM EST Office Visit [address] [address] Mary Jo Perez FNP [address] [place] [address] 02/08/2025 9:30 AM EST Medication Management [address] [address] Katlyn Rodriguez, PharmD [address] [place] [address] 03/13/2025 11:30 AM EST Telemedicine [address] [address] Name, MD Kiel [address] [place] [address] 04/10/2025 10:45 AM EST Office Visit [address] [address] Name[place] [address] 05/31/2025 11:00 AM EDT Telemedicine [facility] [address] [place] [address] Opal Steiner, MARINA documented as of this [...] documented as of this encounter Care Teams Expansion Joint Finisher Relationship Specialty Start Date End Date [place] [address] PCP - General Family Medicine 07/15/15 Puia, Katlyn, PharmD [address] [place] [address] Pharmacist Internal Medicine 10/08/22 Nehal Ann, MARINA [address] [place] [address] Registered Nurse Family Medicine 08/20/24 10/29/24 nAia Spencer 08/20/24 11/26/24 Opal Carrasquillo Registered Nurse 10/29/24 11/26/24 Ania Spencer 12/14/24 12/26/24 Ania Spencer 01/09/25 01/25/25 Ania Spencer 01/30/25 Marta Ovalle JackspoolerNeedle Grinder 05/25/23 documented as of this encounter
--- OUTSIDE RECORDS SUMMARY | 2025-02-04 18:56 | XMS_ITS | Encounter Summary ---
Author Organization [employer] Address [address] [facility] 7t [place] [address] Care Team Providers Care Epic Specialist Name Role Phone Name, Kiel BAILEY Primary Care Provider [phone] Katlyn Rodriguez PharmD Unavailable [phone] Ania Spencer Unavailable Encounter Details Date Type Department Care Team ([facility] Contact Info) Description 02/04/2025 Orders Only [facility] External Provider, [facility] Social History Tobacco Use Types Packs/Day [...] Description 02/06/2025 2:30 PM EST Office Visit [address] [address] Mary Jo Perez FNP [address] [place] [address] 02/08/2025 9:30 AM EST Medication Management [address] [address] Katlyn Rodriguez, PharmD [address] [place] [address] 03/13/2025 11:30 AM EST Telemedicine [address] [address] Name, MD Kiel [address] [place] [address] 04/10/2025 10:45 AM EST Office Visit [address] [address] NameKiel MD [address] [place] [address] 05/31/2025 11:00 AM EDT Telemedicine [address] [address] Opal Steiner, RN documented as of this [...] Patient has chronic kidney disease No Flora Christianson RN Weekly blood pressure task Care Plan [...] task Care Plan Weekly blood pressure task [place]iel Shaffer MD Weekly blood pressure task Care Plan Weekly blood pressure task [place]iel Shaffer MD Patient has chronic kidney disease Care Plan Patient has chronic kidney disease [place]iel Shaffer MD Patient has chronic kidney disease Care Plan Patient has chronic kidney disease [place]iel Shaffer MD Weekly blood pressure task Care Plan Weekly blood pressure task No Opal Steiner RN Weekly blood pressure task Care Plan Weekly blood pressure task No Opal Steiner RN Patient has chronic kidney disease Care Plan Patient has chronic kidney disease No Opal Steiner RN Patient has chronic kidney disease Care Plan Patient has chronic kidney disease No Opal Steiner RN documented as of this encounter Procedures Procedure Name Priority Date/Time Associated Diagnosis Comments CT HEAD WO CONTRAST Routine 02/04/2025 5 :22 PM EST XR CHEST 2 VIEWS Routine 02/04/2025 1:05 PM EST documented in this encounter Results * CT Head w/o Contrast (02/04/2025 5:22 PM EST) Anatomical Region Laterality Modality Head, Neck Computed Tomogra phy 02/04/2025 5:22 PM EST Narrative 02/04/2025 5:24 PM EST [address] [address] [address] Scan Report Signed Patient: Sarita Puga MR#: [id number] 92 : 1965 Acct:[id number] Age/Sex: 59 / F ADM Date: 02/04/25 Loc: HO.ED Attending Dr: Ordering Physician: Luis Daniel Velazquez DO Date of Service: 02/04/25 Procedure(s): CT head/brain wo IV con Accession Number(s): [id number] cc: Kiel Shaffer MD; Luis Daniel Velazquez DO Report Number: [id number]: Total DLP = 690.00 mGy-cm Reason for Exam: right arm weakness CLINICAL HISTORY: right arm weakness CT head without contrast Comparison: CT/REG/SR - CT HEAD/BRAIN WO IV CON - 01/29/25 20:08 EST Findings: No intra-axial mass, midline shift, hydrocephalus, or acute hemorrhage. No significant atrophy-like change or white matter disease. There is no sinus or mastoid fluid. The orbits are within normal limits. There is no acute fracture. IMPRESSION: 1. No acute intracranial findings. This document has been electronically signed by: Julian Hung MD on 02/04/2025 17:22:37 Dictated By: Julian Hung MD Signed By: <Electronically signed by Julian Hung MD in OV> 02/04/251722 DD/ 21 TD/TT: 02/04/251721 Business Law Instructor: Procedure Note Donotuseinterpreter, Image - 02/04/[address] [place] [address] [address] Scan Report Signed Patient: Sarita Puga [facility]#: [id number] 92 : 1965Acct:[id number] Age/Sex: 59 / FADM Date: 02/04/25 Loc: HO.ED Attending Dr: Ordering Physician: Luis Daniel Velazquez DO Date of Service: 02/04/25 Procedure(s): CT head/brain wo IV con Accession Number(s): [id number] cc: Kiel Shaffer MD; Luis Daniel Velazquez DO Report Number: [id number]: Total DLP = 690.00 mGy-cm Reason for Exam: right arm weakness CLINICAL HISTORY: right arm weakness CT head without contrast Comparison: CT/REG/SR - CT HEAD/BRAIN WO IV CON - 01/29/25 20:08 EST Findings: No intra-axial mass, midline shift, hydrocephalus, or acute hemorrhage. No significant atrophy-like change or white matter disease. There is no sinus or mastoid fluid. The orbits are within normal limits. There is no acute fracture. IMPRESSION: 1. No acute intracranial findings. This document has been electronically signed by: Julian Hung MD on 02/04/2025 17:22:37 Dictated By: Julian Hung MD Signed By: <Electronically signed by Julian Hung MD in OV> 02/04/25 172 DD/ 21 TD/TT: 02/04/251721 Business Law Instructor: [facility] External Provider IMG CT PROCEDURES Final Result * XR Chest 2 Views (02/04/2025 1:05 PM EST) Anatomical Region Laterality Modality Chest Radiographic Diana ging 02/04/2025 1:05 PM EST Narrative 02/04/2025 1:24 PM EST [address] [address] XRay Report Signed Patient: Sarita Puga MR#: [id number] 92 : 1965 Acct:[id number] Age/Sex: 59 / F ADM Date: 02/04/25 Loc: HO.ED Attending Dr: Ordering Physician: Natalie Martell Date of Service: 02/04/25 Procedure(s): XR chest 2V Accession Number(s): [id number] cc: Natalie Martell; Name,Kiel BAILEY Reason for Exam: chest pain + dizziness EXAMINATION: XR CHEST CLINICAL INFORMATION: chest pain + dizziness COMPARISON: 01/08/2025 TECHNIQUE: 2 views of the chest were obtained. FINDINGS: Short linear densities in the left lung base likely represent atelectasis. The lungs are mildly hypoaerated. Lungs are clear. No pneumothorax is identified. Cardiac and mediastinal contours are unremarkable. There is no sign of pleural effusion. XR/XR chest 2V IMPRESSION: Subsegmental left basilar atelectasis. Electronically signed by: Zohaib Murray MD 02/04/2025 01:22 PM EST Dictated By: Zohaib Murray MD Signed By: <Electronically signed by Zohaib Murray MD in OV> 02/04/25 1322 DD/ 1305 TD/TT: 02/04/25 1311 Business Law Instructor: Procedure Note Donhankter, Image - 02/04/[address] [address] XRay Report Signed Patient: Sarita Puga MMR#: [id number] 92 : 1965Acct:[id number] Age/Sex: 59 / FADM Date: 02/04/25 Loc: HO.ED Attending Dr: Ordering Physician: Natalie Martell Date of Service: 02/04/25 Procedure(s): XR chest 2V Accession Number(s): [id number] cc: Natalie Martell; Name,Kiel BAILEY Reason for Exam: chest pain + dizziness EXAMINATION: XR CHEST CLINICAL INFORMATION: chest pain + dizziness COMPARISON: 01/08/2025 TECHNIQUE: 2 views of the chest were obtained. FINDINGS: Short linear densities in the left lung base likely represent atelectasis. The lungs are mildly hypoaerated. Lungs are clear. No pneumothorax is identified. Cardiac and mediastinal contours are unremarkable. There is no sign of pleural effusion. XR/XR chest 2V IMPRESSION: Subsegmental left basilar atelectasis. Electronically signed by: Zohaib Murray MD 02/04/2025 01:22 PM [facility] Dictated By: Zohaib Murray MD Signed By: <Electronically signed by Zohaib Murray MD in OV> 02/04/25 1322 DD/ 1305 TD/TT: 02/04/25 1311 Business Law Instructor: [facility] External Provider IMG XR PROCEDURES Final Result documented in this encounter Visit [...] documented as of this encounter Care Teams Epic Specialist Relationship Specialty Start Date End Date Name, MD Kiel [address] [place] [address] PCP - General Family Medicine 07/15/15 Katlyn Rodriguez PharmD [address] [place] [address] Pharmacist Internal Medicine 10/08/22 Ania Spencer 01/30/25 Marta Ovalle Client Account RepresentativeSheet Metal Duct Installer Apprentice 05/25/23 documented as of this encounter
--- OUTSIDE RECORDS SUMMARY | 2025-02-04 18:56 | XMS_ITS | Encounter Summary ---
Author Organization [employer] [facility] Prior to 12/23/2023 Address [address] [place] [address] Care Team Providers Care Electrical Repairer Name Role Phone Name, Kiel BAILEY Primary Care Provider Unavailabl e Name, Kiel BAILEY Primary Care Provider Unavailabl e Philly Vela DO Primary Care Pro vider Unavailable Name, Kiel BAILEY Primary Care Provider Unavailabl e Encounter Details Date Type Department Care Team Description 11/25/2011 [employer] Blasting Report Medical Records [address] [place] [address] Mohini Ellis, GERARDO Social History Tobacco Use Types Packs/Day Years [...] filedocumented in this encounter Care Teams Electrical Repairer Relationship Specialty Start Date End Date Kiel Shaffer MD PCP - General 05/26/09 04/27/15 Kiel Shaffer MD PCP - General Internal Medicine 04/28/15 05/05/15 Philly Vela DO PCP - General Internal Medicine 05/06/15 08/27/15 Kiel Shaffer MD PCP - General Internal Medicine 08/28/15 documented as of this encounter
--- OUTSIDE RECORDS SUMMARY | 2025-02-04 18:56 | XMS_ITS | Encounter Summary ---
Author Organization [employer] Address [address] [place] [address] 7t [place] [address] Care Team Providers Care Set Decorator Name Role Phone Name, Kiel BAILEY Primary Care Provider [phone] Katlyn Rodriguez PharmD Unavailable Nehal Ann RN Unavailable Unavailable Ania Spencer Unavailable Opal Carrasquillo Unavailable Tj, Ania Unavailable Tj, Ania Unavailable Tj, Ania Unavailable Reason for Visit * Reason Comments Med Refill Encounter Details Date Type Department Care Team (Late st Contact Info) Description 02/10/2022 Refill [facility] [address] [place] [address] Name, MD Kiel [address] [place] [address] Chronic pain syndrome (Primary Dx) Social History [...] Description 02/06/2025 2:30 PM EST Office Visit [address] [address] Mary Jo Perez FNP [address] [place] [address] 02/08/2025 9:30 AM EST Medication Management [address] [address] Katlyn Rodriguez PharmD [address] [place] [address] 03/13/2025 11:30 AM EST Telemedicine [address] [address] Name, MD Kiel [address] [place] [address] 04/10/2025 10:45 AM EST Office Visit [address] [address] Kiel Shaffer MD [address] [place] [address] 05/31/2025 11:00 AM EDT Telemedicine [address] [address] Opal Steiner, MARINA documented as of this encounter Visit Diagnoses Diagnosis Chronic pain syndrome- Primary documented in this encounter Care Teams Set Decorator Relationship Specialty Start Date End Date Name, MD Kiel [address] [place] [address] PCP - General Family Medicine 07/15/15 Katlyn Rodriguez PharmD [address] [place] [address] Pharmacist Internal Medicine 10/08/22 Nehal Ann, RN [address] [place] [address] Registered Nurse Family Medicine 08/20/24 10/29/24 Ania Spencer 08/20/24 11/26/24 Opal Carrasquillo Registered Nurse 10/29/24 11/26/24 Ania Spencer 12/14/24 12/26/24 Ania Spencer 01/09/25 01/25/25 Ania Spencer 01/30/25 Marta Ovalle Fabric Machine OperatorBreakdown Worker 05/25/23 documented as of this encounter
--- OUTSIDE RECORDS SUMMARY | 2025-02-04 18:56 | XMS_ITS | Clinical Summary ---
Author Organization [facility] Prior to 07/21/[address] [place] [address] Care Team Providers Care Director Foundation Name Role Phone Name, Kiel BAILEY Primary Care Provider [phone] Allergies Active Allergy Reactions Criticality Noted Date [...] age to complete this topic Care Teams Director Foundation Relationship Specialty Start Date End Date Name, MD Kiel [address] [facility] [address] [place] [address] PCP - General Internal Medicine 04/17/18
--- OUTSIDE RECORDS SUMMARY | 2025-02-04 18:56 | XMS_ITS | Encounter Summary ---
Author Organization [employer] Address [address] [place] [address] Care Team Providers Care Electric Hoist Operator Name Role Phone Name, Kiel BAILEY Primary Care Provider [phone] Katlyn Rodriguez PharmD Unavailable [phone] Encounter Details Date Type Department Care Team ([facility] Contact Info) Description 01/29/2025 Orders Only [...] t he electric, gas, oil or water [employer] threatened to shut off services in your [...] Description 02/06/2025 2:30 PM EST Office Visit [address] [address] Mary Jo Perez FNP [address] [place] [address] 02/08/2025 9:30 AM EST Medication Management [address] [address] Katlyn Rodriguez, PharmD [address] [place] [address] 03/13/2025 11:30 AM EST Telemedicine [address] [address] Name, MD Kiel [address] [place] [address] 04/10/2025 10:45 AM EST Office Visit [address] [address] Name, MD Kiel [address] [place] [address] 05/31/2025 11:00 AM EDT Telemedicine [address] [address] Opal Steiner, MARINA documented as of this [...] blood pressure task No Colon Alan Rosario Patient has chronic kidney disease Care Plan Patient has chronic kidney disease No Colon Alan Rosario Patient has chronic kidney disease Care [...] blood pressure task No Opal Steiner, RN Weekly blood pressure task Care Plan [...] Care Plan Weekly blood pressure task No Tj Ania Patient has chronic kidney disease Care Plan Patient has chronic kidney disease No Tj Ania Patient has chronic kidney disease Care Plan Patient has chronic kidney disease No Catrachito Spencerda Weekly blood pressure task Care Plan Weekly blood pressure task No Katarzyna Toroa Weekly blood pressure task Care Plan Weekly blood pressure task No Toro, Leny Patient has chronic kidney disease Care Plan Patient has chronic kidney disease No Cortez Leny Patient has chronic kidney disease Care Plan Patient has chronic kidney disease No Katarzyna Toroa documented as of this encounter Procedures Procedure [...] PM EST Narrative 01/29/2025 9:32 PM EST [address] [address] [address] Scan Report Signed Patient: Sarita Puga MR#: [id number] 92 : 1965 Acct:[id number] Age/Sex: 59 / F ADM Date: 01/29/25 Loc: HO.ED Attending Dr: Ordering Physician: Brown Blair Date of Service: 01/29/25 Procedure(s): CT chest wo IV con Accession Number(s): [id number] cc: Brown Blair; Name,Kiel BAILEY Report Number: [id number]: Total DLP = 457.00 mGy-cm Reason for [...] in OV> 01/29/252130 DD/ 30 TD/TT: 01/29/252130 Restorative Coordinator: Procedure Note Donotuseinterpreter, Image - 01/29/[address] [address] [address] Scan Report Signed Patient: Sarita Puga MMR#: [id number] 92 : 1965Acct:[id number] Age/Sex: 59 / FADM Date: 01/29/25 Loc: HO.ED Attending Dr: Ordering Physician: Brown Blair Date of Service: 01/29/25 Procedure(s): CT chest wo IV con Accession Number(s): [id number] cc: Brown Blair; Name,Kiel BAILEY Report Number: [id number]: Total DLP = 457.00 mGy-cm Reason for [...] in OV> 01/29/252130 DD/ 30 TD/TT: 01/29/252130 Restorative Coordinator: [facility] External Provider IMG CT PROCEDURES Edited Result - Final * CT Head w/o Contrast (01/29/2025 9:28 PM EST) Anatomical Region Laterality Modality Head, Neck Computed Tomogra phy 01/29/2025 9:28 PM EST Narrative 01/29/2025 9:30 PM EST [place] [address] CT Scan Report Signed Patient: Sarita Puga MR#: [id number] 92 : 1965 Acct:[id number] Age/Sex: 59 / F ADM Date: 01/29/25 Loc: HO.ED Attending Dr: Ordering Physician: Brown Blair Date of Service: 01/29/25 Procedure(s): CT head/brain wo IV con Accession Number(s): [id number] cc: Brown Blair; NameKiel MD Report Number: [id number]: Total DLP = 1286.00 mGy-cm Reason for [...] in OV> 01/29/252129 DD/ 27 TD/TT: 01/29/252127 Restorative Coordinator: Procedure Note Donotuseinterpreter, Image - 01/29/[address] [place] [address] [address] Scan Report Signed Patient: Sarita Puga MMR#: [id number] 92 : 1965Acct:[id number] Age/Sex: 59 / FADM Date: 01/29/25 Loc: HO.ED Attending Dr: Ordering Physician: Brown Blair Date of Service: 01/29/25 Procedure(s): CT head/brain wo IV con Accession Number(s): [id number] cc: Brown Blair; Name,Kiel BAILEY Report Number: [id number]: Total DLP = 1286.00 mGy-cm Reason for [...] in OV> 01/29/252129 DD/ 27 TD/TT: 01/29/252127 Restorative Coordinator: [facility] External Provider IMG CT PROCEDURES Edited Result - Final * SARS-CoV-2 RNA, Influenza A/B, and RSV RNA, Ql NAAT (01/29/2025 9:27 PM EST) Influenza A PCR NEGATIVE Negative [facility] Influenza B PCR NEGATIVE Negative [facility] Resp Syncy Virus RNA Qual PCR NEGATIVE Negative [facility] SARS COV2 PCR NEGATIVE Negative [facility] Comment:All test results mus t be [...] use by authorized laboratories.Testing performed on the [employer] GeneXpert utilizingreal-time RT-PCR.All SARS CoV2 and positive influenza A/B results arereported to [facility]. 01/29/2025 9:27 PM EST 01/29/2025 9:33 PM EST us Generic External Data Provider LAB MICROBIOLOGY - GENERAL ORDERABLES Final Result [facility] [address] [place] [phone] * Urinalysis w/reflex microscopic (01/29/2025 9:27 PM EST) Color Urine Yellow [facility] Appearance Urine Clear [facility] PH 6.5 5.0 - 9.0 [facility] Glucose Urine UA Negative Negative mg/dL [facility] Urine Blood Negative Negative [facility] Specific [place] - Urine 1.020 1.005 - 1.025 [facility] Urine Protein Negative Neg-Trace mg/dL [facility] Urine Ketones Negative Negative mg/dL [facility] Nitrite Urine Negative Negative [facility] Leukocyte Esterase Urine Negative Negative [facility] 01/29/2025 9:27 PM EST 01/29/2025 9:33 PM EST Narrative [facility] - 01/29/2025 9:42 PM EST Urine, Clean Catch us Generic External Data Provider LAB URINE ORDERAB LES Final Result Performing Organization Address City/State/[facility] Co de Phone Number [facility] [address] [place] [phone] * CT Abdomen Pelvis w/o Contrast (01/29/2025 9:24 PM EST) Anatomical Region Laterality Modality Body, Pelvis, Abdomen Computed T omography 01/29/2025 9:24 PM EST Narrative 01/29/2025 9:25 PM EST [address] [address] [address] Scan Report Signed Patient: Sarita Puga MR#: [id number] 92 : 1965 Acct:[id number] Age/Sex: 59 / F ADM Date: 01/29/25 Loc: HO.ED Attending Dr: Ordering Physician: Brwon Blair Date of Service: 01/29/25 Procedure(s): CT abdomen pelvis wo IV con Accession Number(s): [id number] cc: Brown Blair; Name,Kiel BAILEY Report Number: [id number]: Total DLP = 994.00 mGy-cm Reason for [...] in OV> 01/29/252123 DD/ 23 TD/TT: 01/29/252123 Restorative Coordinator: Procedure Note Donotuseinterpreter, Image - 01/29/[address] [address] [address] Scan Report Signed Patient: Sarita Puga MMR#: [id number] 92 : 1965Acct:[id number] Age/Sex: 59 / FADM Date: 01/29/25 Loc: HO.ED Attending Dr: Ordering Physician: Brown Blair Date of Service: 01/29/25 Procedure(s): CT abdomen pelvis wo IV con Accession Number(s): [id number] cc: Brown Blair; Name,Kiel BAILEY Report Number: [id number]: Total DLP = 994.00 mGy-cm Reason for [...] in OV> 01/29/252123 DD/ 23 TD/TT: 01/29/252123 Restorative Coordinator: us [facility] External Provider IMG CT PROCEDURES Edited Result - Final * CT Cervical Spine w/o Contrast (01/29/2025 9:21 PM EST) Anatomical Region Laterality Modality Spine, C-spine Computed Tomogra phy 01/29/2025 9:21 PM EST Narrative 01/29/2025 9:22 PM EST [address] [place] [address] CT Scan Report Signed Patient: Sarita Puga MR#: [id number] 92 : 1965 Acct:[id number] Age/Sex: 59 / F ADM Date: 01/29/25 Loc: HO.ED Attending Dr: Ordering Physician: Brown Blair Date of Service: 01/29/25 Procedure(s): CT cervical spine wo IV con Accession Number(s): [id number] cc: Brown Blair; Name,Kiel BAILEY Report Number: [id number]: Total DLP = 478.00 mGy-cm Reason for [...] in OV> 01/29/252120 DD/ 20 TD/TT: 01/29/252120 Restorative Coordinator: Procedure Note Donotuseinterpreter, Image - 01/29/[address] [address] [address] Scan Report Signed Patient: Sarita Puga MMR#: [id number] 92 : 1965Acct:[id number] Age/Sex: 59 / FADM Date: 01/29/25 Loc: .ED Attending Dr: Ordering Physician: Brown Blair Date of Service: 01/29/25 Procedure(s): CT cervical spine wo IV con Accession Number(s): [id number] cc: Brown Blair; Kiel Shaffer MD Report Number: [id number]: Total DLP = 478.00 mGy-cm Reason for [...] in OV> 01/29/252120 DD/ 20 TD/TT: 01/29/252120 Restorative Coordinator: [facility] External Provider IMG CT PROCEDURES Edited Result - Final * Creatine Kinase, Total (01/29/2025 8:05 PM EST) Creatine Kinase Total 41 26 - 140 U/L [facility] 01/29/2025 8:05 PM EST 01/29/2025 8:08 PM EST Generic External Data Provider LAB BLOOD ORDERAB LES Final Result Performing Organization Address [facility] Co de Phone Number [facility] [address] [place] [phone] * Magnesium (01/29/2025 8:05 PM EST) Magnesium 1.9 1.6 - 2.6 mg/dL [facility] 01/29/2025 8:05 PM EST 01/29/2025 8:08 PM EST Generic External Data Provider LAB BLOOD ORDERAB LES Final Result Performing Organization Address [facility] Co de Phone Number [facility] [address] [place] [phone] * (ABNORMAL) Comprehensive Metabolic Panel (01/29/2025 8:05 PM EST) Sodium 141 135 - 145 mmol/L [facility] Potassium 3.8 3.3 - 5.1 mmol/L [facility] Chloride 107 96 - 108 mmol/L [facility] Carbon Dioxide 26 22 - 29 mmol/L [facility] Anion Gap 12 12 - 20 [facility] Urea Nitrogen (BUN) 15 9 - 16 mg/dL [facility] Creatinine, Serum 0.79 0.5 - 1.4 mg/dL [facility] Creatinine Clr Calc Pharmacy 89.8 [facility] Comment:Provided height and weight: 160.02 cm,107.048 kg.eGFR (calculated from the MDRD study equation) and eCrCl(calculated from the Cockcroft-Gault equation) are based ondifferent parameters and may not yield comparable results.If eCrCl result is absurd, please check patient'sheight/weight. Estimated Glomerular Filt Rate >60 [facility] Comment:Chronic Kidney Disea se: Estimated GFR < 60 mL/min/1.96s3Dtyrvo Kidney Disease: Estimated GFR < 15 mL/min/1.73m2 Glucose 154(H) 60 - 115 mg/dL [facility] Calcium 9.1 8.4 - 10.2 mg/dL [facility] Bilirubin, Total 0.2 0.0 - 1.0 mg/dL [facility] Aspartate Amino Transferase 13 5 - 31 U/L [facility] Alanine Aminotransferase 21 0 - 31 U/L [facility] Total Protein 6.2(L) 6.5 - 8.0 g/dL [facility] Albumin Level 3.9 3.5 - 5.0 g/dL [facility] Alkaline Phosphatase 73 39 - 117 U/L [facility] 01/29/2025 8:05 PM EST 01/29/2025 8:08 PM EST us Generic External Data Provider LAB BLOOD ORDERAB LES Final Result [facility] [address] [place] [phone] * (ABNORMAL) CBC auto differential (01/29/2025 8:05 PM EST) White Blood Count 6.2 4.8 - 10.8 X10*3/uL [facility] Red Blood Count 4.46 4.20 - 5.50 X10*6/uL [facility] Hemoglobin 12.1 12.0 - 16.0 g/dl [facility] Hematocrit 37.3 37.0 - 47.0 % [facility] Mean Corpuscular Volume 83.6 80.0 - 98.0 fL [facility] Mean Corpuscular Hemoglobin 27.1 27.0 - 33.0 pg [facility] Mean Corpuscular HGB Conc 32.4 31.0 - 35.0 g/dl [facility] Red Cell Distribution Width 12.9 11.0 - 16.0 % [facility] Platelet Count 135(L) 160 - 400 X10*3/uL [facility] Mean Platelet Volume 11.9 9.4 - 12.3 fL [facility] Neutrophils Percent Auto 54.8 45 - 73 % [facility] Imm Gran Pct Auto 0.2 0.0 - 0.4 % [facility] Lymphocytes Percent Auto 36.1 20 - 40 % [facility] Monocytes Percent Auto 6.1 2 - 11 % [facility] Eosinophils Percent Auto 1.8 0 - 4 % [facility] Basophils Percent Auto 1.0 0 - 2 % [facility] NRBC Pct Auto 0.0 0.0 - 0.2 /100WBC [facility] Neutrophils Absolute Auto 3.4 2.0 - 8.3 x10*3/uL [facility] Imm Gran Abs Auto 0.01 0.00 - 0.03 X10*3/uL [facility] Lymphocytes Absolute Auto 2.2 1.2 - 4.9 X10*3/uL [facility] Monocytes Absolute Auto 0.4 0.1 - 1.2 X10*3/uL [facility] Eosinophils Absolute Auto 0.1 0.0 - 0.4 X10*3/uL [facility] Basophils Absolute Auto 0.1 0.0 - 0.2 X10*3/uL [facility] NRBC Abs Auto 0.000 0.0 - 0.012 X10*3/uL [facility] 01/29/2025 8:05 PM EST 01/29/2025 8:08 PM EST us Generic External Data Provider LAB BLOOD ORDERAB LES Final Result [facility] [address] [place] [phone] documented in this encounter Visit Diagnoses [...] as of this encounter Care Teams Electric Hoist Operator Relationship Specialty Start Date End Date Name, MD Kiel [address] [place] [address] PCP - General Family Medicine 07/15/15 Katlyn Rodriguez PharmD [address] [place] [address] Pharmacist Internal Medicine 10/08/22 Marta Ovalle Pan CleanerHousehold Appliances Salesperson 05/25/23 documented as of this encounter
--- OUTSIDE RECORDS SUMMARY | 2025-02-04 18:56 | XMS_ITS | Encounter Summary ---
Author Organization [employer] Address [address] [place] [address] 7[address] [place] [address] Care Team Providers Care Funding Specialist Name Role Phone Name, Kiel BAILEY Primary Care Provider [phone] Katlyn Rodriguez PharmD Unavailable [phone] Nehal Ann RN Unavailable Unavailable Ania Spencer Unavailable Opal Carrasquillo Unavailable Tj, Ania Unavailable Tj, Ania Unavailable Tj, Ania Unavailable Reason for Visit * Reason Onset Date Comments Medication Problem 08/30/2023 Encounter Details Date Type Department Care Team (Late st Contact Info) Description 08/30/2023 Telephone [facility] [address] [place], [place] [phone] Name, MD Kiel [address] [place], [place] [phone] Medication Problem Social History Tobacco Use Types [...] usual. Not at all 09/02/2023 10:30 AM Erika Alonzo Thoughts that you would be better off [...] Description 02/06/2025 2:30 PM EST Office Visit [facility] [address] [place] [phone] Mary Jo Perez FNP [address] [place] [address] 02/08/2025 9:30 AM EST Medication Management [address] [address] Katlyn Rodriguez, AngieD [address] [place] [address] 03/13/2025 11:30 AM EST Telemedicine [address] [address] Name, MD [facility] [place] [address] 04/10/2025 10:45 AM EST Office Visit [address] [place] [address] Name, MD Kiel J[place], [place] 05/31/2025 11:00 AM EDT Telemedicine [address] [address] Opal Steiner RN documented as of this [...] documented as of this encounter Care Teams Funding Specialist Relationship Specialty Start Date End Date [place] [address] PCP - General Family Medicine 07/15/15 Puia, Katlyn, PharmD [address] [place] [phone] Pharmacist Internal Medicine 10/08/22 Nehal Ann, MARINA [address] [place] [phone] Registered Nurse Family Medicine 08/20/24 10/29/24 Ania Spencer 08/20/24 11/26/24 Opal Carrasquillo Registered Nurse 10/29/24 11/26/24 Ania Spencer 12/14/24 12/26/24 Ania Spencer 01/09/25 01/25/25 Ania Spencer 01/30/25 Marta Ovalle Swine Extension Field SpecialistArt Consultant 05/25/23 documented as of this encounter
--- OUTSIDE RECORDS SUMMARY | 2025-02-04 18:56 | XMS_ITS | Encounter Summary ---
Author Organization [employer] Address [address] [place] [address] 7[address] [place] [address] Care Team Providers Care Crystal Grinder Name Role Phone Name, Kiel BAILEY Primary Care Provider Katlyn Rodriguez PharmD Unavailable Nehal Ann RN Unavailable Unavailable Anai Spencer Unavailable Opal Carrasquillo Unavailable [phone] Catrachito Spencerda Unavailable Tj, Ania Unavailable Tj, Ania Unavailable Reason for Visit * Reason Comments Med Refill Encounter Details Date Type Department Care Team (Late st Contact Info) Description 04/25/2022 Refill [facility] MEDICINE [address] [place], [place] [phone] Name, MD Kiel [address] [place], [place] [phone] Diabetes mellitus type 2 in obese (CMS/HCC) [...] Description 02/06/2025 2:30 PM EST Office Visit [address] [address] Mary Jo Perez FNP [address] [place] [address] 02/08/2025 9:30 AM EST Medication Management [address] [address] Katlyn Rodriguez PharmD [address] [place] [address] 03/13/2025 11:30 AM EST Telemedicine [address] [address] Kiel Shaffer MD [address] [place] [address] 04/10/2025 10:45 AM EST Office Visit [address] [address] Kiel Shaffer MD [address] [place] [address] 05/31/2025 11:00 AM EDT Telemedicine [address] [address] Opal Steiner, MARINA documented as of this encounter Visit Diagnoses Diagnosis Diabetes mellitus type 2 in obese- Primary Type II or unspecified type diabetes mellitus without mention of complication, not stated as uncontrolled documented in this encounter Care Teams Crystal Grinder Relationship Specialty Start Date End Date Kiel Shaffer MD [address] [place] [address] PCP - General Family Medicine 07/15/15 Katlyn Rodriguez PharmD [address] [place] [address] Pharmacist Internal Medicine 10/08/22 Nehal Ann, RN [address] [place] [address] Registered Nurse Family Medicine 08/20/24 10/29/24 Ania Spencer 08/20/24 11/26/24 Opal Carrasquillo Registered Nurse 10/29/24 11/26/24 Ania Spencer 12/14/24 12/26/24 Ania Spencer 01/09/25 01/25/25 Ania Spencer 01/30/25 Marta Ovalle Sorting Machine OperatorParimutuel Cashier 05/25/23 documented as of this encounter
--- OUTSIDE RECORDS SUMMARY | 2025-02-04 18:56 | XMS_ITS | Encounter Summary ---
Author Organization [employer] Address [address] [place] [address] 7t [place] [address] Care Team Providers Care Dressmaker Helper Name Role Phone Name, Kiel BAILEY Primary Care Provider [phone] Katlyn Rodriguez PharmD Unavailable Nehal Ann RN Unavailable Unavailable Ania Spencer Unavailable Opal Carrasquillo Unavailable Tj, Ania Unavailable Tj, Ania Unavailable Tj, Ania Unavailable Reason for Visit * Reason Onset Date Comments Reschedule 08/01/2023 Encounter Details Date Type Department Care Team (Late st Contact Info) Description 08/01/2023 Telephone [facility] MEDICINE [address] [place], [place] [phone] Name, MD Kiel [address] [place], [place] [phone] Reschedule Social History Tobacco Use Types Packs/Day [...] the past 12 months, has t he [place], gas, oil or water [employer] threatened to shut off services in your [...] 08/01/2023 9:55 AM EDT Triage call with [place] Filter Tip Inspector ID [id number] . Pt reports Covid + test this [...] 08/01/2023 9:04 AM EDT Patient cancelled todays [employer] [facility] appt today. Pt's [employer] appt has been rescheduled for chronic [...] AM EDT Tc from pt requesting r/s [employer] appt, stated is sick and suspect is COVID documented in this encounter Plan of Treatment Upcoming Encounters Date Type Department Care Team (Late st Contact Info) Description 02/06/2025 2:30 PM EST Office Visit [facility] MEDICINE [address] [place] [address] Mary Jo Perez FNP [address] [place], [place] [phone] 02/08/2025 9:30 AM EST Medication Management [address] [address] Puia, Katlyn, PharmD [address] [place] [phone] 03/13/2025 11:30 AM EST Telemedicine [address] [address] Kiel Shaffer MD [address] [place] [address] 04/10/2025 10:45 AM EST Office Visit [address] [address] Kiel Shaffer MD [address] [place] [address] 05/31/2025 11:00 AM EDT Telemedicine [address] [address] Opal Steiner, MARINA documented as of this encounter Goals Goal Patient Goal Type Associated Problems Recent Progress Patient-Stated? Author Record your blood pressure once per day Blood Pressure No Puia, Katlyn, PharmD Blood Pressure < 140/90 Blood Pressure 138/92(2024 12:02 PM EST) No Puia, Katlny, PharmD Hemoglobin A1c [...] documented as of this encounter Care Teams Dressmaker Helper Relationship Specialty Start Date End Date Kiel Shaffer MD [address] [place] [address] PCP - General Family Medicine 07/15/15 Puia, Katlyn, PharmD [address] [place], [place] [phone] Pharmacist Internal Medicine 10/08/22 Nehal Ann, RN [address] [place] [address] Registered Nurse Family Medicine 08/20/24 10/29/24 Ania Spencer 08/20/24 11/26/24 Opal Carrasquillo Registered Nurse 10/29/24 11/26/24 Ania Spencer 12/14/24 12/26/24 Ania Spencer 01/09/25 01/25/25 Ania Spencer 01/30/25 Marta Ovalle Accessories RepairerEngineering Design Supervisor 05/25/23 documented as of this encounter
--- OUTSIDE RECORDS SUMMARY | 2025-02-04 18:56 | XMS_ITS | Encounter Summary ---
Author Organization [facility] Prior to 12/23/2023 Address [address] [place] [address] Care Team Providers Care Admitting Interviewer Name Role Phone Name, Kiel BAILEY Primary Care Provider Unavailabl e Name, Kiel BAILEY Primary Care Provider Unavailabl e Philly Vela DO Primary Care Pro vider Unavailable Name, Kiel BAILEY Primary Care Provider Unavailabl e Encounter Details Date Type Department Care Team Description 11/24/2011 Booster Station Operator Report Medical Records [address] [place] [address] Geovani Nielsen Social History Tobacco Use Types [...] on filedocumented in this encounter Care Teams Admitting Interviewer Relationship Specialty Start Date End Date Kiel Shaffer MD PCP - General 05/26/09 04/27/15 Kiel Shaffer MD PCP - General Internal Medicine 04/28/15 05/05/15 Philly Vela DO PCP - General Internal Medicine 05/06/15 08/27/15 Kiel Shaffer MD PCP - General Internal Medicine 08/28/15 documented as of this encounter
--- OUTSIDE RECORDS SUMMARY | 2025-02-04 18:56 | XMS_ITS | Encounter Summary ---
Author Organization [employer] Address [address] [facility] 7t [place] [address] Care Team Providers Care Card Mounter Name Role Phone Name, Kiel BAILEY Primary Care Provider [phone] Katlyn Rodriguez PharmD Unavailable [phone] Ania Spencer Unavailable Encounter Details Date Type Department Care Team (Latest Contact Info) Description 02/04/2025 Travel Social History Tobacco Use Types Packs/Day [...] Description 02/06/2025 2:30 PM EST Office Visit [address] [address] Mary Jo Perez FNP [address] [place] [address] 02/08/2025 9:30 AM EST Medication Management [address] [address] Katlyn Rodriguez, PharmD [address] [place] [address] 03/13/2025 11:30 AM EST Telemedicine [address] [address] Name, MD Kiel [address] [place] [address] 04/10/2025 10:45 AM EST Office Visit [address] [address] NameKiel MD [address] [place] [address] 05/31/2025 11:00 AM EDT Telemedicine [address] [address] Opal Steiner, MARINA documented as of this [...] chronic kidney disease No Colon Phillips Rosario Patient has chronic [...] chronic kidney disease No Opal Steiner, RN Weekly blood pressure [...] Plan Patient has chronic kidney disease No Wresien, Flora, RN Weekly blood pressure task Care Plan [...] task Care Plan Weekly blood pressure task [place] Weekly blood pressure task Care Plan Weekly blood pressure task [place] MD Patient has chronic kidney disease Care Plan Patient has chronic kidney disease [place] MD Patient has chronic kidney disease Care Plan Patient has chronic kidney disease [place] Sh[place] MD Weekly blood pressure task Care [...] documented as of this encounter Care Teams Card Mounter Relationship Specialty Start Date End Date Name, MD Kiel [address] [place] [address] PCP - General Family Medicine 07/15/15 Katlyn Rodriguez PharmD [address] [place] [address] Pharmacist Internal Medicine 10/08/22 Ania Spencer 01/30/25 Marta Ovalle Tank Car LoaderSlubber Tender 05/25/23 documented as of this encounter
--- OUTSIDE RECORDS SUMMARY | 2025-02-04 18:56 | XMS_ITS | Encounter Summary ---
Author Organization [employer] Address [address] [place] [address] 7t [place] [address] Care Team Providers Care Railroad Signal Technician Name Role Phone Name, Kiel BAILEY Primary Care Provider [phone] Katlyn Rodriguez PharmD Unavailable Nehal Ann RN Unavailable Unavailable Ania Spencer Unavailable Opal Carrasquillo Unavailable Tj, Ania Unavailable Tj, Ania Unavailable Tj, Ania Unavailable Encounter Details Date Type Department Care Team (Late st Contact Info) Description 02/23/2022 [facility] Only [facility] [address] [place], [place] [phone] Name, MD Kiel [address] [place], [place] [phone] Social History Tobacco Use Types Packs/Day Years [...] Description 02/06/2025 2:30 PM EST Office Visit [address] [address] Mary Jo Perez FNP [address] [place] [address] 02/08/2025 9:30 AM EST Medication Management [address] [address] Katlyn Rodriguez PharmD [address] [place] [address] 03/13/2025 11:30 AM EST Telemedicine [address] [address] Name, MD Kiel [address] [place] [address] 04/10/2025 10:45 AM EST Office Visit [address] [address] NameKiel MD [address] [place] [address] 05/31/2025 11:00 AM EDT Telemedicine [address] [address] Opal Steiner, MARINA documented as of this encounter Visit Diagnoses Not on filedocumented in this encounter Care Teams Railroad Signal Technician Relationship Specialty Start Date End Date Name, MD Kiel [address] [place] [address] PCP - General Family Medicine 07/15/15 Katlyn Rodriguez PharmD [address] [place] [address] Pharmacist Internal Medicine 10/08/22 Nehal Ann, RN [address] [place] [address] Registered Nurse Family Medicine 08/20/24 10/29/24 Ania Spencer 08/20/24 11/26/24 Opal Carrasquillo Registered Nurse 10/29/24 11/26/24 Ania Spencer 12/14/24 12/26/24 Ania Spencer 01/09/25 01/25/25 Ania Spencer 01/30/25 Marta Ovalle Tool Design DrafterClaims Adjuster 05/25/23 documented as of this encounter
--- OUTSIDE RECORDS SUMMARY | 2025-02-04 18:56 | XMS_ITS | Encounter Summary ---
Author Organization [employer] Address [address] [place] [address] 7t [place] [address] Care Team Providers Care Sexual Assault Social Worker Name Role Phone Name, Kiel BAILEY Primary Care Provider Katlyn Rodriguez PharmD Unavailable Nehal Ann RN Unavailable Unavailable Ania Spencer Unavailable Opal Carrasquillo Unavailable Ania Spencer Unavailable Tj, Ania Unavailable Tj Ania Unavailable Encounter Details Date Type Department Care Team (Late st Contact Info) Description 03/12/2022 Orders Only [facility] [address] [place] [address] Millie Sawant LPN Social History Tobacco Use [...] Description 02/06/2025 2:30 PM EST Office Visit [address] [address] Mary Jo Perez FNP [address] [place] [address] 02/08/2025 9:30 AM EST Medication Management [address] [address] Katlyn Rodriguez PharmD [address] [place] [address] 03/13/2025 11:30 AM EST Telemedicine [address] [address] NameKiel MD [address] [place] [address] 04/10/2025 10:45 AM EST Office Visit [address] [address] Name, MD Kiel [address] [place] [address] 05/31/2025 11:00 AM EDT Telemedicine [address] [address] Opal Steiner, MARINA documented as of this encounter Visit Diagnoses Not on filedocumented in this encounter Care Teams Sexual Assault Social Worker Relationship Specialty Start Date End Date Kiel Shaffer MD [address] [place] [address] PCP - General Family Medicine 07/15/15 Katlyn Rodriguez PharmD [address] [place] [address] Pharmacist Internal Medicine 10/08/22 Nehal Ann, MARINA [address] [place] [address] [place] [address] Registered Nurse Family Medicine 08/20/24 10/29/24 Ania Spencer 08/20/24 11/26/24 Opal Carrasquillo Registered Nurse 10/29/24 11/26/24 Ania Spencer 12/14/24 12/26/24 Ania Spencer 01/09/25 01/25/25 Ania Spencer 01/30/25 Marta Ovalle Slate Roofer HelperHog Scraper 05/25/23 documented as of this encounter
--- OUTSIDE RECORDS SUMMARY | 2025-02-04 18:56 | XMS_ITS | Encounter Summary ---
Author Organization [employer] Address [address] [place] [address] 7t [place] [address] Care Team Providers Care Industrial Psychologist Name Role Phone Name, Kiel BAILEY Primary Care Provider [phone] Katlyn Rodriguez PharmD Unavailable Nehal Ann RN Unavailable Unavailable Ania Spencer Unavailable Opal Carrasquillo Unavailable Tj, Ania Unavailable Tj, Ania Unavailable Tj, Ania Unavailable Reason for Visit * Reason Comments Med Refill Encounter Details Date Type Department Care Team (Late st Contact Info) Description 06/27/2023 Refill [facility] [address] [place] [address] Puia Katlyn, PharmD [address] [place], [place] [phone] Tobacco use disorder Social History Tobacco Use [...] the past 12 months, has t he [employer], gas, oil or water company threatened to [...] Description 02/06/2025 2:30 PM EST Office Visit [address] [address] Mary Jo Perez FNP [address] [place] [address] 02/08/2025 9:30 AM EST Medication Management [address] [address] Katlyn Rodriguez, PharmD [address] [place] [address] 03/13/2025 11:30 AM EST Telemedicine [address] [address] Kiel Shaffer MD [address] [place] [address] 04/10/2025 10:45 AM EST Office Visit [address] [address] Kiel Shaffer MD [address] [place] [address] 05/31/2025 11:00 AM EDT Telemedicine [facility] [address] [place] [address] Opal Steiner, MARINA documented as of this [...] as of this encounter Care Teams Industrial Psychologist Relationship Specialty Start Date End Date Name, MD Kiel [address] [place] [address] PCP - General Family Medicine 07/15/15 Puia, Katlyn, PharmD [address] [place] [address] Pharmacist Internal Medicine 10/08/22 Nehal Ann, MARINA [address] [place] [address] Registered Nurse Family Medicine 08/20/24 10/29/24 Ania Spencer 08/20/24 11/26/24 Opal Carrasquillo Registered Nurse 10/29/24 11/26/24 Ania Spencer 12/14/24 12/26/24 Ania Spencer 01/09/25 01/25/25 Ania Spencer 01/30/25 Marta Ovalle Rn Behavioral HealthTank Worker 05/25/23 documented as of this encounter
--- OUTSIDE RECORDS SUMMARY | 2025-02-04 18:56 | XMS_ITS | Encounter Summary ---
Author Organization [employer] [facility] Prior to 07/21/[address] [place] [address] Care Team Providers Care Stitch Bonding Machine Drawer In Name Role Phone Name, Kiel BAILEY Primary Care Provider [phone] Encounter Details Date Type Department Care Team Description 09/10/2022 Social Work [facility] [address] [place] [address] Adina Archer [facility] Social History Tobacco Use Types [...] on filedocumented in this encounter Care Teams Stitch Bonding Machine Drawer In Relationship Specialty Start Date End Date Name, MD Kiel [address] [place] [address] [address] [place] [address] PCP - General Internal Medicine 04/17/18 documented as of this encounter
--- OUTSIDE RECORDS SUMMARY | 2025-02-04 18:56 | XMS_ITS | Encounter Summary ---
Author Organization [facility] Prior to 12/23/2023 Address [address] [place] [address] Care Team Providers Care Residential Worker Name Role Phone Name, Kiel ABILEY Primary Care Provider Unavailabl e Name, Kiel BAILEY Primary Care Provider Unavailabl e Philly Vela DO Primary Care Pro vider Unavailable Name, Kiel BAILEY Primary Care Provider Unavailabl e Encounter Details Date Type Department Care Team Description 03/02/2012 [facility] Medical Records [address] [place] [address] Kaylynn Mahmood MD Social History Tobacco Use [...] on filedocumented in this encounter Care Teams Residential Worker Relationship Specialty Start Date End Date Kiel Shaffer MD PCP - General 05/26/09 04/27/15 Kiel Shaffer MD PCP - General Internal Medicine 04/28/15 05/05/15 Philly Vela DO PCP - General Internal Medicine 05/06/15 08/27/15 Kiel Shaffer MD PCP - General Internal Medicine 08/28/15 documented as of this encounter
--- OUTSIDE RECORDS SUMMARY | 2025-02-04 18:56 | XMS_ITS | Encounter Summary ---
Author Organization [employer] Address [address] [facility] 7t [place] [address] Care Team Providers Care Pizza Cook Name Role Phone Name, Kiel BAILEY Primary Care Provider [phone] Katlyn Rodriguez PharmD Unavailable [phone] Ania Spencer Unavailable Reason for Visit * Reason Onset Date Comments Med Refill 02/04/2025 Oxycodone count discrepancy 02/04/2025 C/O right arm numbness/weakness and headache UTOX not obtained 02/04/2025 Encounter Details Date Type Department Care Team (Late st Contact Info) Description 02/04/[address] [facility] [address] [place] [address] Opal Steiner, MARINA Cerebellar mass; Chronic intractable [...] Telephone Encounter - Opal Steiner RN - 02/04/2025 12:11 PM EST Pt had JOURNALIST RV appointment today Oxycodone count was 1, anticipated she would have 11. Unable to obtain UTOX today. P/T c/o right arm numbness/weakness and headache since 02/03/25. Blood pressure today was 138/92, APHR 114. Per conversation with PCP, pt and daughter were advised that patient should be evaluated in ER for any further neurological issue. Spoke at length with patient and daughter, both were strongly advised to go to ER to r/o further neurological issues. Pt stated she just wants to go home and rest. Daughter stated she will talk to her mom more about going after they leave. documented in this encounter Plan of Treatment Upcoming Encounters Date Type Department Care Team ([facility] st Contact Info) Description 02/06/2025 2:30 PM EST Office Visit [facility] MED[facility] [address] [place] [address] Mary Jo Perez FNP [address] [place] [address] 02/08/2025 9:30 AM EST Medication Management [address] [address] PuiaKatlyn, PharmD [address] [place] [address] 03/13/2025 11:30 AM EST Telemedicine [address] [address] NameKiel MD [address] [place] [address] 04/10/2025 10:45 AM EST Office Visit [address] [address] NameKiel MD [address] [place] [address] 05/31/2025 11:00 AM EDT Telemedicine [address] [address] Opal Steiner, MARINA documented as of this [...] has chronic kidney disease No Cortez Leny Weekly blood pressure task Care Plan [...] Plan Weekly blood pressure task No Flora Christianson RN Weekly blood pressure task Care Plan Weekly blood pressure task No Flora Christianson RN Patient has chronic kidney disease Care Plan Patient has chronic kidney disease No Flora Christianson, MARINA Patient has chronic kidney disease Care [...] task Care Plan Weekly blood pressure task [place]iel Shaffer MD Weekly blood pressure task Care Plan Weekly blood pressure task [place]ab[place]la[place]iel Shaffer MD Patient has chronic kidney disease Care Plan Patient has chronic kidney disease ArkabutlaKiel Shaffer MD Patient has chronic kidney disease Care Plan Patient has chronic kidney disease ArkabutlaKiel Shaffer MD Weekly blood pressure task Care Plan Weekly blood pressure task No Opal Steiner, MARINA Weekly blood pressure task Care Plan Weekly blood pressure task No Opal Steiner, MARINA Patient has chronic kidney disease Care Plan Patient has chronic kidney disease No Obdulia Opal, RN Patient has chronic kidney disease Care [...] documented as of this encounter Care Teams Pizza Cook Relationship Specialty Start Date End Date Name, MD Kiel [address] [place], [place] [phone] PCP - General Family Medicine 07/15/15 Katlyn Rodriguez PharmD [address] [place], [place] [phone] Pharmacist Internal Medicine 10/08/22 Ania Spencer 01/30/25 Marta Ovalle Signs CleanerManager Play 05/25/23 documented as of this encounter
--- OUTSIDE RECORDS SUMMARY | 2025-02-04 18:56 | XMS_ITS | Clinical Summary ---
Author Organization [facility] Address [address] [place] [address] Phone Care Team Providers Care Building Construction Supervisor Name Role Phone Name, Kiel BAILEY Primary Care Provider [phone] Allergies Active Allergy Reactions Criticality Noted Date [...] Active medical supply, miscellaneous (MISCELLANEOUS MEDICAL SUPPLY [facility] [place] ULTICARE SHORT PEN NEEDLES 31G X 8 MM USE FOUR TIMES DAILY TO INJECT insulin WITH A MEAL AND AT BEDTIME 06/23/19 16 Active blood sugar diagnostic (FreeStyle Lite Strips) test strip USE TO TEST FINGER STICK BLOOD SUGAR TWICE DAILY DIRECTED 06/23/19 16 Active medical supply, miscellaneous (MISCELLANEOUS MEDICAL SUPPLY MISC) [facility] [place] DEVICES (COMMODE BEDSIDE) MIS 1 Device by Does not apply route as needed (voiding/bm). 12/11/19 15 Active ASPIRIN ORAL Take 1 Tab by mouth daily. 11/28/19 15 Active lancets (Sure Comfort Lancets) 30 gauge [facility] [place] USE TO TEST FINGER STICK BLOOD SUGAR [...] 10/08/2009 Overview (12/12/2023): The patient follows with [facility] and is treated with [...] PM EST Office Visit [facility] - [place] [address] [place] [place] [phone] Wesley Garcia DPM Acquired hammer toe of right foot (Primary Dx); Tinea pedis of both feet; Diabetic mononeuropathy simplex ([facility] V24, [facility] V28); Pain in toe of left foot; [...] TOTAL HYSTERECTOMY WITH BSO; COMMENT: for bleeding, [facility] Medical History Medical History Date Comments Type II or unspecified type diabetes mellitus with unspecified complication, not stated as uncontrolled DX:Type II or unspecified t ype diabetes mellitus with unspecified complication, not stated as uncontrolled Unspecified essential hypertension DX:Unspecified essential hypertension Tobacco abuse DX:Tobacco abuse RAD (reactive airway disease) DX :RAD (reactive airway disease) Morbid obesity ([facility] V24, [facility] V28) DX:Morbid obesity ([facility]) Asthmatic bronchitis , chron ic ([facility] V24, [facility] V28) 07/07/2009 DX:Asthmatic bronchitis , ch ronic ([facility]) Hypertriglyceridemia 06/05/2009 DX:Hypertri glyceridemia Rib fracture [...] PM EDT Office Visit [facility] [address] [phone] Wesley Garcia, DPM [address] [phone] Health Maintenance Due Date Last Done Comments [...] LAB CHEMISTRY METHOD 02/06/2024 3:[address] [facility] Potassium 4.1 3.5 - 5.5 mmol/L LAB CHEMISTRY METHOD 02/06/2024 3:[address] [facility] Chloride 104 96 - 110 mmol/L LAB CHEMISTRY METHOD 02/06/2024 3:[address] [facility] CO2 23 21 - 32 mmol/L LAB CHEMISTRY METHOD 02/06/2024 3:[address] [facility] Anion Gap 9 3 - 11 LAB CHEMISTRY METHOD 02/06/2024 3:36 AM [facility] Glucose 244(H) 70 - 100 mg/dL LAB CHEMISTRY METHOD 02/06/2024 3:[address] [facility] BUN 17 5 - 25 mg/dL LAB CHEMISTRY METHOD 02/06/2024 3:[address] [facility] Creatinine 0.71 0.50 - 1.10 mg/dL LAB CHEMISTRY METHOD 02/06/2024 3:[address] [facility] eGFR 99 >=60 mL/min/1. 73m2 LAB CHEMISTRY METHOD 02/06/2024 3:[address] [facility] Comment:Calculation based on the Chronic Kidney Disease Epidemiology Collaboration (CKD-EPI) equation refit without adjustment for race. BUN/Creatinine Ratio 23.9 LAB CHEMISTRY METHOD 02/06/2024 3:36 AM [facility] Calcium 9.3 8.5 - 10.5 mg/dL LAB CHEMISTRY METHOD 02/06/2024 3:36 AM [facility] Blood Venous blood specimen / Unknown Venipuncture / Unknown 02/06/2024 2:59 AM EST 02/06/2024 3:13 AM EST Cindy SEGURA LAB BLOOD ORDERABLES Final R esult [facility] [address] [place] [address], * (ABNORMAL) Hemoglobin A1c (11/20/2014) Pathologist [facility] Hemoglobin A1C 7.5(A) 4.0 - 6.0 % Blood Venous blood specimen / Unknown Historical Provider LAB BLOOD ORDERABLES Alis l Result * Urine Albumin Creatinine Ratio (05/10/2014) Pathologist [facility] Urine Albumin Creatinine Ratio abstracted Historical Provider [...] currently active code status orders. Care Teams Building Construction Supervisor Relationship Specialty Start Date End Date Name, MD Kiel [address] [place], [place] PCP - General Internal Medicine 08/28/15
--- OUTSIDE RECORDS SUMMARY | 2025-02-04 18:57 | XMS_ITS | Encounter Summary ---
Author Organization [facility] [employer] [facility] Prior to 12/23/2023 Address [address] [place] [address] Care Team Providers Care Nib Finisher Name Role Phone Name, Kiel BAILEY Primary Care Provider Unavailabl e Name, Kiel BAILEY Primary Care Provider Unavailabl e Philly Vela DO Primary Care Pro vider Unavailable Name, Kiel BAILEY Primary Care Provider Unavailabl e Encounter Details Date Type Department Care Team Description 08/15/2011 [facility] Medical Records [address] [place] [address] Dot [place] Social History Tobacco Use Types [...] on filedocumented in this encounter Care Teams Nib Finisher Relationship Specialty Start Date End Date Kiel Shaffer MD PCP - General 05/26/09 04/27/15 Kiel Shaffer MD PCP - General Internal Medicine 04/28/15 05/05/15 Philly Vela DO PCP - General Internal Medicine 05/06/15 08/27/15 Kiel Shaffer MD PCP - General Internal Medicine 08/28/15 documented as of this encounter
--- OUTSIDE RECORDS SUMMARY | 2025-02-04 18:57 | XMS_ITS | Encounter Summary ---
Author [facility] Address [address] [place] [address] Care Team Providers Care Strategic Sourcing Specialist Name Role Phone Pihlly Vela DO Primary Care Pro vider Unavailable Kiel Shaffer MD Primary Care Provider Unavailabl e Encounter Details Date Type Department Care Team Description 06/04/2015 Diabetes Physician Report Medical Records [address] [place] [address] Zack Castro PA-C Social History Tobacco Use [...] on filedocumented in this encounter Care Teams Strategic Sourcing Specialist Relationship Specialty Start Date End Date Philly Vela DO PCP - General Internal Medicine 05/06/15 08/27/15 Kiel Shaffer MD PCP - General Internal Medicine 08/28/15 documented as of this encounter
--- OUTSIDE RECORDS SUMMARY | 2025-02-04 18:57 | XMS_ITS | Encounter Summary ---
Author Organization [employer] Address [address] [place] [address] 7t [place] [address] Care Team Providers Care Ems Educator Name Role Phone Name, Kiel BAILEY Primary Care Provider [phone] Katlyn Rodriguez PharmD Unavailable Nehal Ann RN Unavailable Unavailable Ania Spencer Unavailable Opal Carrasquillo Unavailable Tj Ania Unavailable Tj, Ania Unavailable Tj, Ania Unavailable Reason for Visit * Reason Comments Med Refill Encounter Details Date Type Department Care Team (Late st Contact Info) Description 07/16/2022 Refill [facility] [address] [place], [place] [phone] Name, MD Kiel [address] [place], [place] [phone] Chronic pain syndrome Social History Tobacco Use [...] Description 02/06/2025 2:30 PM EST Office Visit [address] [address] Mary Jo Perez FNP [address] [place] [address] 02/08/2025 9:30 AM EST Medication Management [address] [address] Katlyn Rodriguez PharmD [address] [place] [address] 03/13/2025 11:30 AM EST Telemedicine [address] [address] NameKiel MD [address] [place] [address] 04/10/2025 10:45 AM EST Office Visit [address] [address] NameKiel MD [address] [place] [address] 05/31/2025 11:00 AM EDT Telemedicine [address] [address] Opal Steiner, MARINA documented as of this encounter Visit Diagnoses Diagnosis Chronic pain syndrome documented in this encounter Additional Health Concerns Assessment Noted Time PHQ-9 Depression Total Score: 7 07/15/19 23 2:39 PM EDT documented as of this encounter Care Teams Ems Educator Relationship Specialty Start Date End Date NameKiel MD [address] [place] [address] PCP - General Family Medicine 07/15/15 Katlyn Rodriguez, Bin [address] [place], [place] [phone] Pharmacist Internal Medicine 10/08/22 Nehal Ann, MARINA [address] [place] [address] Registered Nurse Family Medicine 08/20/24 10/29/24 Ania Spencer 08/20/24 11/26/24 Opal Carrasquillo Registered Nurse 10/29/24 11/26/24 Ania Spencer 12/14/24 12/26/24 Ania pSencer 01/09/25 01/25/25 Ania Spencer 01/30/25 Marta Ovalle Cold Storage SuperintendentMaster Ocean 05/25/23 documented as of this encounter
--- OUTSIDE RECORDS SUMMARY | 2025-02-04 18:57 | XMS_ITS | Encounter Summary ---
Author Organization [employer] Address [address] [place] [address] 7t [place] [address] Care Team Providers Care Voltage Tester Name Role Phone Name, Kiel BAILEY Primary Care Provider Katlyn Rodriguez PharmD Unavailable Nehal Ann RN Unavailable Unavailable Ania Spencer Unavailable Opal Carrasquillo Unavailable [phone] Catrachito Spencerda Unavailable Tj, Ania Unavailable Tj, Ania Unavailable Reason for Visit * Reason Comments Med Refill Encounter Details Date Type Department Care Team (Late st Contact Info) Description 07/02/2022 Refill [facility] MEDICINE [address] [place], [place] [phone] Name, MD Kiel [address] [place], [place] [phone] Chronic pain syndrome Social History Tobacco Use [...] Description 02/06/2025 2:30 PM EST Office Visit [address] [address] Mary Jo Perez FNP [address] [place] [address] 02/08/2025 9:30 AM EST Medication Management [address] [address] Katlyn Rodriguez PharmD [address] [place] [address] 03/13/2025 11:30 AM EST Telemedicine [address] [address] Kiel Shaffer MD [address] [place] [address] 04/10/2025 10:45 AM EST Office Visit [address] [address] Kiel Shaffer MD [address] [place] [address] 05/31/2025 11:00 AM EDT Telemedicine [address] [address] Opal Steiner, MARINA documented as of this encounter Visit Diagnoses Diagnosis Chronic pain syndrome documented in this encounter Care Teams Voltage Tester Relationship Specialty Start Date End Date Kiel Shaffer MD [address] [place] [address] PCP - General Family Medicine 07/15/15 Katlyn Rodriguez PharmD [address] [place] [address]82 Pharmacist Internal Medicine 10/08/22 Nehal Ann, RN [address] [place] [address] Registered Nurse Family Medicine 08/20/24 10/29/24 Ania Spencer 08/20/24 11/26/24 Opal Carrasquillo Registered Nurse 10/29/24 11/26/24 Ania Spencer 12/14/24 12/26/24 Ania Spencer 01/09/25 01/25/25 Ania Spencer 01/30/25 Marta Ovalle Fiberglass Product TesterDealership Manager 05/25/23 documented as of this encounter
--- OUTSIDE RECORDS SUMMARY | 2025-02-04 18:57 | XMS_ITS | Encounter Summary ---
Author Organization [facility] Prior to 12/23/2023 Address [address] [place] [address] Care Team Providers Care Printing Plate Setter Name Role Phone Name, Kiel BAILEY Primary Care Provider Unavailabl e Name, Kiel BAILEY Primary Care Provider Unavailabl e Philly Vela DO Primary Care Pro vider Unavailable Name, Kiel BAILEY Primary Care Provider Unavailabl e Encounter Details Date Type Department Care Team Description 10/30/2011 Hospital Medical Records [address] [place] [address] Nadine Laboy Social History Tobacco Use Types [...] on filedocumented in this encounter Care Teams Printing Plate Setter Relationship Specialty Start Date End Date Kiel Shaffer MD PCP - General 05/26/09 04/27/15 Kiel Shaffer MD PCP - General Internal Medicine 04/28/15 05/05/15 Philly Vela DO PCP - General Internal Medicine 05/06/15 08/27/15 Kiel Shaffer MD PCP - General Internal Medicine 08/28/15 documented as of this encounter
--- OUTSIDE RECORDS SUMMARY | 2025-02-04 18:57 | XMS_ITS | Encounter Summary ---
Author Organization [employer] Address [address] [facility] 7t [place] [address] Care Team Providers Care Master Welder Name Role Phone Name, Kiel BAILEY Primary Care Provider Katlyn Rodriguez PharmD Unavailable Nehal Ann RN Unavailable Unavailable Ania Spencer Unavailable Opal Carrasquillo Unavailable Tj, Ania Unavailable Tj, Ania Unavailable Tj, Ania Unavailable Reason for Visit * Reason Comments Med Refill Encounter Details Date Type Department Care Team (Late st Contact Info) Description 06/08/2024 Refill [facility] MED & PEDS [address] [place] [address] Name, MD Kiel 230 [place] [address] Chronic pain syndrome Social History Tobacco Use [...] Description 02/06/2025 2:30 PM EST Office Visit [address] [address] Mary Jo Perez FNP [address] [place] [address] 02/08/2025 9:30 AM EST Medication Management [address] [address] Katlyn Rodriguez, AngieD [address] [place] [address] 03/13/2025 11:30 AM EST Telemedicine [address] [address] Name, MD Kiel [address] [place] [address] 04/10/2025 10:45 AM EST Office Visit [facility] MEDICINE [address] [place] [address] NameKiel MD [address] [place] [address] 05/31/2025 11:00 AM EDT Telemedicine [address] [address] Opal Steiner RN documented as of this [...] documented as of this encounter Care Teams Master Welder Relationship Specialty Start Date End Date Kiel Shaffer MD [address] [place] [address] PCP - General Family Medicine 07/15/15 Puia, Katlyn, PharmD [address] [place] [address] Pharmacist Internal Medicine 10/08/22 Nehal Ann, MARINA [address] [place] [address] Registered Nurse Family Medicine 08/20/24 10/29/24 Ania Spencer 08/20/24 11/26/24 Opal Carrasquillo Registered Nurse 10/29/24 11/26/24 Ania Spencer 12/14/24 12/26/24 Ania Spencer 01/09/25 01/25/25 Ania Spencer 01/30/25 Marta Ovalle Auto Service RepresentativeTubing Mill Setter 05/25/23 documented as of this encounter
--- OUTSIDE RECORDS SUMMARY | 2025-02-04 18:57 | XMS_ITS | Encounter Summary ---
Author Organization [employer] Address [address] [facility] 7t [place] [address] Care Team Providers Care Orthodontic Lab Technician Name Role Phone Name, Kiel BAILEY Primary Care Provider Kaltyn Rodriguez PharmD Unavailable Nehal Ann RN Unavailable Unavailable Ania Spencer Unavailable Opal Carrasquillo Unavailable Tj, Ania Unavailable Tj, Ania Unavailable Tj, Ania Unavailable Reason for Visit * Reason Comments Med Refill Encounter Details Date Type Department Care Team (Late st Contact Info) Description 06/08/2024 Refill [facility] MED & PEDS [address] [place] [address] Name, MD Kiel 230 [place] [address] Chronic pain syndrome Social History Tobacco Use [...] Description 02/06/2025 2:30 PM EST Office Visit [address] [address] Mary Jo Perez FNP [address] [place] [address] 02/08/2025 9:30 AM EST Medication Management [address] [address] Katlyn Rodriguez, AngieD [address] [place] [address] 03/13/2025 11:30 AM EST Telemedicine [address] [address] Name, MD Kiel [address] [place] [address] 04/10/2025 10:45 AM EST Office Visit [facility] MEDICINE [address] [place] [address] NameKiel MD [address] [place] [address] 05/31/2025 11:00 AM EDT Telemedicine [address] [address] Opal Steiner RN documented as of this [...] documented as of this encounter Care Teams Orthodontic Lab Technician Relationship Specialty Start Date End Date Kiel Shaffer MD [address] [place] [address] PCP - General Family Medicine 07/15/15 Puia, Katlyn, PharmD [address] [place] [address] Pharmacist Internal Medicine 10/08/22 Nehal Ann, MARINA [address] [place] [address] Registered Nurse Family Medicine 08/20/24 10/29/24 Ania Spencer 08/20/24 11/26/24 Opal Carrasquillo Registered Nurse 10/29/24 11/26/24 Ania Spencer 12/14/24 12/26/24 Ania Spencer 01/09/25 01/25/25 Ania Spencer 01/30/25 Marta Ovalle Art Gallery DirectorComfort Station Supervisor 05/25/23 documented as of this encounter
--- OUTSIDE RECORDS SUMMARY | 2025-02-04 18:57 | XMS_ITS | Encounter Summary ---
Author Organization [employer] Address [address] [place] [address] 7t [place] [address] Care Team Providers Care Riveter Portable Machine Name Role Phone Name, Kiel BAILEY Primary Care Provider [phone] Katlyn Rodriguez PharmD Unavailable Nehal Ann RN Unavailable Unavailable Ania Spencer Unavailable Opal Carrasquillo Unavailable Tj, Ania Unavailable Tj, Ania Unavailable Tj, Ania Unavailable Reason for Visit * Reason Onset Date Comments Appointment Request 02/29/2024 Encounter Details Date Type Department Care Team (Late st Contact Info) Description 02/29/2024 Telephone [facility] MEDICINE [address] [place] [address] Name, MD Kiel 230 [place], [place] [phone] Appointment Request Social History Tobacco Use Types [...] different date and time. Pt does speak swedish so you will need an back end architect. documented in this encounter Plan of Treatment Upcoming Encounters Date Type Department Care Team (Late st Contact Info) Description 02/06/2025 2:30 PM EST Office Visit [facility] MEDICINE [address] [place] [address] Mary Jo Perez FNP [address] [place] [address] 02/08/2025 9:30 AM EST Medication Management [address] [address] Puia, Katlyn, PharmD J[place], [place] 03/13/2025 11:30 AM EST Telemedicine [address] [phone] Name, MD Kiel [place], [place] 04/10/2025 10:45 AM EST Office Visit [address] [address] Name, MD Kile [place], [place] 05/31/2025 11:00 AM EDT Telemedicine [address] [phone] Opal Steiner RN documented as of this [...] documented as of this encounter Care Teams Riveter Portable Machine Relationship Specialty Start Date End Date NameKiel MD Jai [place], [place] PCP - General Family Medicine 07/15/15 Puia, Katlyn, PharmD [address] [place] [address] [phone] Pharmacist Internal Medicine 10/08/22 Nehal Ann, RN [address] [place] [address] Registered Nurse Family Medicine 08/20/24 10/29/24 Ania Spencer 08/20/24 11/26/24 Opal Carrasquillo Registered Nurse 10/29/24 11/26/24 Ania Spencer 12/14/24 12/26/24 Ania Spencer 01/09/25 01/25/25 Ania Spencer 01/30/25 Marta Ovalle Executive Business CoachBusiness Project Manager 05/25/23 documented as of this encounter
--- OUTSIDE RECORDS SUMMARY | 2025-02-04 18:57 | XMS_ITS | Encounter Summary ---
Author Organization [facility] [employer] [facility] Prior to 12/23/2023 Address [address] [place] [address] Care Team Providers Care Tax Collector Name Role Phone Name, Kiel BAILEY Primary Care Provider Unavailabl e Name, Kiel BAILEY Primary Care Provider Unavailabl e Philly Vela DO Primary Care Pro vider Unavailable Name, Kiel BAILEY Primary Care Provider Unavailabl e Encounter Details Date Type Department Care Team Description 09/20/2011 Construction Foreman Report Medical Records [address] [place] [address] Edy Lal MD Social History Tobacco Use [...] on filedocumented in this encounter Care Teams Tax Collector Relationship Specialty Start Date End Date Kiel Shaffer MD PCP - General 05/26/09 04/27/15 Kiel Shaffer MD PCP - General Internal Medicine 04/28/15 05/05/15 Philly Vela DO PCP - General Internal Medicine 05/06/15 08/27/15 Kiel Shaffer MD PCP - General Internal Medicine 08/28/15 documented as of this encounter
--- OUTSIDE RECORDS SUMMARY | 2025-02-04 18:57 | XMS_ITS | Encounter Summary ---
Author Organization [facility] Prior to 12/23/2023 Address [address] [place] [address] Care Team Providers Care Heating Engineer Name Role Phone NameKiel MD Primary Care Provider Unavailabl e Encounter Details Date Type Department Care Team Description 01/13/2021 Orders Only Cardio PVCA Diag Testing [address] [facility] [address] [place] [address] Doreen Villatoro PA Chest pain, unspecified type [...] Primary documented in this encounter Care Teams Heating Engineer Relationship Specialty Start Date End Date Kiel Shaffer MD PCP - General Internal Medicine 08/28/15 documented as of this encounter
--- OUTSIDE RECORDS SUMMARY | 2025-02-04 18:57 | XMS_ITS | Encounter Summary ---
Author [facility] Address [address] [place] [address] Care Team Providers Care Manager Servicing Name Role Phone Name, Kiel BAILEY Primary Care Provider Unavailabl e Encounter Details Date Type Department Care Team Description 12/12/2015 Transfer Records Medical Records [address] [place] [address] Balaji Johnson DO Social History Tobacco Use [...] filedocumented in this encounter Care Teams Manager Servicing Relationship Specialty Start Date End Date Name, MD Kiel PCP - General Internal Medicine 08/28/15 documented as of this encounter
--- OUTSIDE RECORDS SUMMARY | 2025-02-04 18:57 | XMS_ITS | Encounter Summary ---
Author Organization [facility] [employer] [facility] Prior to 12/23/2023 Address [address] [place] [address] Care Team Providers Care Supervising Deputy Name Role Phone Name, Kiel BAILEY Primary Care Provider Unavailabl e Name, Kiel BAILEY Primary Care Provider Unavailabl e Philly Vela DO Primary Care Pro vider Unavailable Name, Kiel BAILEY Primary Care Provider Unavailabl e Encounter Details Date Type Department Care Team Description 08/13/2011 [facility] Medical Records [address] [place] [address] Marcia Wan MD Social History Tobacco Use [...] on filedocumented in this encounter Care Teams Supervising Deputy Relationship Specialty Start Date End Date Kiel Shaffer MD PCP - General 05/26/09 04/27/15 Kiel Shaffer MD PCP - General Internal Medicine 04/28/15 05/05/15 Philly Vela DO PCP - General Internal Medicine 05/06/15 08/27/15 Kiel Shaffer MD PCP - General Internal Medicine 08/28/15 documented as of this encounter
--- OUTSIDE RECORDS SUMMARY | 2025-02-04 18:57 | XMS_ITS | Clinical Summary ---
Author Organization [facility] Prior to 12/23/2023 Address [address] [place] [address] Care Team Providers Care Digital Strategy Manager Name Role Phone Name, Kiel BAILEY [...] just unsure what to do Educational Resources [place] [employer] (www.diabetes.org) Centers for Disease Control [...] leg 09/21 Overview: The patient follows with [facility] and is treated with [...] Hx Relation Name Status Comments Brother 1 DE Brother 2 Alive 6 brothers are diabetic [...] 08/29/2014, 05/10/2014, Additional history exists DIABETES/HEART DISEASE: ENSHA AL CHOLESTEROL (LDL) 05/11/2015 05/10/2014, 10/10/2013, 05/21/2013, [...] HEPATITIS C SCREENING Completed 10/10/2013 Care Teams Digital Strategy Manager Relationship Specialty Start Date End Date Name, MD Kiel PCP - General Internal Medicine 08/28/15
--- OUTSIDE RECORDS SUMMARY | 2025-02-04 18:57 | XMS_ITS | Encounter Summary ---
Author [facility]23 Address [address] [place] [address] Care Team Providers Care Technical Testing Engineer Name Role Phone Philly Vela DO Primary Care Pro vider Unavailable Kiel Shaffer MD Primary Care Provider Unavailabl e Encounter Details Date Type Department Care Team Description 08/05/2015 Release of Information Medical Records [address] [place] [address] Abstract, Provider Social History Tobacco Use Types [...] filedocumented in this encounter Care Teams Technical Testing Engineer Relationship Specialty Start Date End Date Philly Vela DO PCP - General Internal Medicine 05/06/15 08/27/15 Kiel Shaffer MD PCP - General Internal Medicine 08/28/15 documented as of this encounter
--- OUTSIDE RECORDS SUMMARY | 2025-02-04 18:57 | XMS_ITS | Encounter Summary ---
[facility] Address [address] [place] [address] Care Team Providers Care Farebox Repairer Name Role Phone Philly Vela DO Primary Care Pro vider Unavailable Kiel Shaffer MD Primary Care Provider Unavailabl e Encounter Details Date Type Department Care Team Description 07/22/2015 Dental Surgery Doctor Report Medical Records [address] [place] [address] Miguel Angel Echevarria, NEELAMC Social History Tobacco Use Types Packs/Day Years [...] on filedocumented in this encounter Care Teams Farebox Repairer Relationship Specialty Start Date End Date Philly Vela DO PCP - General Internal Medicine 05/06/15 08/27/15 Kiel Shaffer MD PCP - General Internal Medicine 08/28/15 documented as of this encounter
--- OUTSIDE RECORDS SUMMARY | 2025-02-04 18:57 | XMS_ITS | Encounter Summary ---
Author Organization [employer] Address [address] [place] [address] 7t [place] [address] Care Team Providers Care Dynamite Packing Machine Feeder Name Role Phone Name, Kiel BAILEY Primary Care Provider [phone] Katlyn Rodriguez PharmD Unavailable [phone] Ania Spencer Unavailable Tj Ania Unavailable Catrachito Spencerda Unavailable Reason for Visit * Reason Comments Med Refill Encounter Details Date Type Department Care Team (Late st Contact Info) Description 12/07/2024 Refill [facility] MEDICINE [address] [place], [place] [phone] Name, MD Kiel [address] [place], [place] [phone] Cerebellar mass; Chronic intractable headache, unspecified headache [...] Description 02/06/2025 2:30 PM EST Office Visit [address] [address] Mary Jo Perez FNP [address] [place] [address] 02/08/2025 9:30 AM EST Medication Management [address] [address] Katlyn Rodriguez, PharmD [address] [place] [address] 03/13/2025 11:30 AM EST Telemedicine [address] [address] Name, MD Kiel [address] [place] [address] 04/10/2025 10:45 AM EST Office Visit [address] [place] [address] Name, [place] [address] 05/31/2025 11:00 AM EDT Telemedicine [facility] MEDICINE [address] [place] [address] Opal Steiner, MARINA documented as of this [...] documented as of this encounter Care Teams Dynamite Packing Machine Feeder Relationship Specialty Start Date End [place] [address] PCP - General Family Medicine 07/15/15 Puia, Katlyn, PharmD [address] [place] [address] Pharmacist Internal Medicine 10/08/22 Ania Spencer 12/14/24 12/26/24 Ania Spencer 01/09/25 01/25/25 Ania Spencer 01/30/25 Marta Ovalle Administrative ReceptionistProfessor Of French 05/25/23 documented as of this encounter
--- OUTSIDE RECORDS SUMMARY | 2025-02-04 18:57 | XMS_ITS | Encounter Summary ---
Author Organization [employer] Address [address] [place] [address] 7t [place] [address] Care Team Providers Care Financial Operations Clerk Name Role Phone Name, Kiel BAILEY Primary Care Provider [phone] Katlyn Rodriguez PharmD Unavailable Nehal Ann RN Unavailable Unavailable Ania Spencer Unavailable Opal Carrasquillo Unavailable Catrachito Spencerda Unavailable Tj, Ania Unavailable Tj, Ania Unavailable Encounter Details Date Type Department Care Team (Late st Contact Info) Description 07/01/2022 Abstract [facility] MEDICINE [address] [place], [place] [phone] Name, MD Kiel [address] [place], [place] [phone] Social History Tobacco Use Types Packs/Day Years [...] Description 02/06/2025 2:30 PM EST Office Visit [address] [address] Mary Jo Perez FNP [address] [place] [address] 02/08/2025 9:30 AM EST Medication Management [address] [address] Katlyn Rodriguez PharmD [address] [place] [address] 03/13/2025 11:30 AM EST Telemedicine [address] [address] NameKiel MD [address] [place] [address] 04/10/2025 10:45 AM EST Office Visit [address] [address] Kiel Shaffer MD [address] [place] [address] 05/31/2025 11:00 AM EDT Telemedicine [address] [address] Opal Steiner, MARINA documented as of this encounter Visit Diagnoses Not on filedocumented in this encounter Care Teams Financial Operations Clerk Relationship Specialty Start Date End Date Name, MD Kiel [address] [place] [address] PCP - General Family Medicine 07/15/15 Katlyn Rodriguez PharmD [address] [place] [address] Pharmacist Internal Medicine 10/08/22 Nehal Ann, RN [address] [place] [address] Registered Nurse Family Medicine 08/20/24 10/29/24 Ania Spencer 08/20/24 11/26/24 Opal Carrasquillo Registered Nurse 10/29/24 11/26/24 Ania Spencer 12/14/24 12/26/24 Ania Spencer 01/09/25 01/25/25 Ania Spencer 01/30/25 Marta Ovalle Cable RespoolerSenior Software Developer 05/25/23 documented as of this encounter
--- OUTSIDE RECORDS SUMMARY | 2025-02-04 18:57 | XMS_ITS | Encounter Summary ---
Author Organization [facility] Prior to 12/23/2023 Address [address] [place] [address] Care Team Providers Care Shredding Machine Knife Changer Name Role Phone Name, Kiel BAILEY Primary Care Provider Unavailabl e Name, Kiel BAILEY Primary Care Provider Unavailabl e Philly Vela DO Primary Care Pro vider Unavailable Name, Kiel BAILEY Primary Care Provider Unavailabl e Encounter Details Date Type Department Care Team Description 08/26/2011 [facility] Medical Records [address] [place] [address] Dot [place] Social History Tobacco Use Types [...] on filedocumented in this encounter Care Teams Shredding Machine Knife Changer Relationship Specialty Start Date End Date Kiel Shaffer MD PCP - General 05/26/09 04/27/15 Kiel Shaffer MD PCP - General Internal Medicine 04/28/15 05/05/15 Philly Vela DO PCP - General Internal Medicine 05/06/15 08/27/15 Kiel Shaffer MD PCP - General Internal Medicine 08/28/15 documented as of this encounter
--- OUTSIDE RECORDS SUMMARY | 2025-02-04 18:57 | XMS_ITS | Encounter Summary ---
Author [facility] 12/23/[facility]23 Address [address] [place] [address] Care Team Providers Care Bulb Grower Name Role Phone Name, Kiel BAILEY Primary Care Provider Unavailabl e Encounter Details Date Type Department Care Team Description 12/12/2015 Transfer Records Medical Records [address] [place] [phone] Balaji Johnson DO Social History Tobacco Use [...] on filedocumented in this encounter Care Teams Bulb Grower Relationship Specialty Start Date End Date Name, MD Kiel PCP - General Internal Medicine 08/28/15 documented as of this encounter
--- OUTSIDE RECORDS SUMMARY | 2025-02-04 18:57 | XMS_ITS | Encounter Summary ---
Author [facility] to 12[facility]23 Address [address] [place] [address] Care Team Providers Care Art Gallery Director Name Role Phone Name, Kiel BAILEY Primary Care Provider Unavailabl e Name, Kiel BAILEY Primary Care Provider Unavailabl e Philly Vela DO Primary Care Pro vider Unavailable Name, Kiel BAILEY Primary Care Provider Unavailabl e Encounter Details Date Type Department Care Team Description 01/26/2011 Home Health Certification Medical Records [address] [place] [address] Vna Social History Tobacco Use Types Packs/Day [...] filedocumented in this encounter Care Teams Art Gallery Director Relationship Specialty Start Date End Date Kiel Shaffer MD PCP - General 05/26/09 04/27/15 Kiel Shaffer MD PCP - General Internal Medicine 04/28/15 05/05/15 Philly Vela DO PCP - General Internal Medicine 05/06/15 08/27/15 Kiel Shaffer MD PCP - General Internal Medicine 08/28/15 documented as of this encounter
--- OUTSIDE RECORDS SUMMARY | 2025-02-04 18:57 | XMS_ITS | Encounter Summary ---
Author Organization [employer] Address [address] [place] [address] 7t [place] [address] Care Team Providers Care Stunt Driver Name Role Phone Name, Kiel BAILEY Primary Care Provider [phone] Katlyn Rodriguez PharmD Unavailable Nehal Ann RN Unavailable Unavailable Ania Spencer Unavailable Opal Carrasquillo Unavailable Catrachito Spencerda Unavailable Tj, Ania Unavailable Tj, Ania Unavailable Reason for Visit * Reason Comments Med Refill Encounter Details Date Type Department Care Team (Late st Contact Info) Description 06/28/2022 Refill [facility] MEDICINE [address] [place], [place] [phone] Name, MD Kiel [address] [place], [place] [phone] Chronic pain syndrome Social History Tobacco Use [...] Description 02/06/2025 2:30 PM EST Office Visit [address] [address] Mary Jo Perez FNP [address] [place] [address] 02/08/2025 9:30 AM EST Medication Management [address] [address] Katlyn Rodriguez PharmD [address] [place] [address] 03/13/2025 11:30 AM EST Telemedicine [address] [address] Kiel Shaffer MD [address] [place] [address] 04/10/2025 10:45 AM EST Office Visit [address] [address] Kiel Shaffer MD [address] [place] [address] 05/31/2025 11:00 AM EDT Telemedicine [address] [address] Opal Steiner, MARINA documented as of this encounter Visit Diagnoses Diagnosis Chronic pain syndrome documented in this encounter Care Teams Stunt Driver Relationship Specialty Start Date End Date Kiel Shaffer MD [address] [place] [address] PCP - General Family Medicine 07/15/15 Katlyn Rodriguez PharmD [address] [place] [address] Pharmacist Internal Medicine 10/08/22 Nehal Ann, RN [address] [place] [address] Registered Nurse Family Medicine 08/20/24 10/29/24 Ania Spencer 08/20/24 11/26/24 Opal Carrasquillo Registered Nurse 10/29/24 11/26/24 Ania Spencer 12/14/24 12/26/24 Ania Spencer 01/09/25 01/25/25 Ania Spencer 01/30/25 Marta Ovalle Centrifugal Chiller TechnicianCoat Tailor 05/25/23 documented as of this encounter
--- OUTSIDE RECORDS SUMMARY | 2025-02-04 18:57 | XMS_ITS | Encounter Summary ---
Author Organization [employer] Address [address] [facility] 7t [place] [address] Care Team Providers Care Operations Business Partner Name Role Phone Name, Kiel BAILEY Primary Care Provider [phone] Katlyn Rodriguez PharmD Unavailable [phone] Ania Spencer Unavailable Encounter Details Date Type Department Care Team ([facility] Contact Info) Description 01/28/2025 Orders Only [facility] Management [address] [place] [address] Provider, MD Glo Social History Tobacco Use Types Packs/Day Years [...] Description 02/06/2025 2:30 PM EST Office Visit [address] [address] Mary Jo Perez FNP [address] [place] [address] 02/08/2025 9:30 AM EST Medication Management [address] [address] Katlyn Rodriguez, PharmD [address] [place] [address] 03/13/2025 11:30 AM EST Telemedicine [address] [address] Kiel Shaffer MD [address] [place] [address] 04/10/2025 10:45 AM EST Office Visit [address] [address] Kiel Shaffer MD [address] [place] [address] 05/31/2025 11:00 AM EDT Telemedicine [address] [address] Opal Steiner, MARINA documented as of this [...] sugar as directed Result Component No Puia, Katlny, PharmD Help patients manage their type 2 [...] Plan Weekly blood pressure task No Colon Alan, Rosario Weekly blood pressure task Care Plan [...] has chronic kidney disease No ToroKatarzyna ortegaa Weekly blood pressure task Care Plan Weekly [...] has chronic kidney disease No Catrachito Spencerda Patient has chronic kidney disease Care Plan [...] has chronic kidney disease No Cortez Leny documented as of this encounter Procedures Procedure [...] documented as of this encounter Care Teams Operations Business Partner Relationship Specialty Start Date End Date Name, MD Kiel [address] [place], [place] [phone] PCP - General Family Medicine 07/15/15 Katlyn Rodriguez PharmD 230 [place] [address] Pharmacist Internal Medicine 10/08/22 Ania Spencer 01/30/25 Marta Ovalle Testing Machine OperatorShot Coat Tender 05/25/23 documented as of this encounter
--- OUTSIDE RECORDS SUMMARY | 2025-02-04 18:57 | XMS_ITS | Encounter Summary ---
Author Organization [facility] [employer] [facility] Prior to 12/23/2023 Address [address] [place] [address] Care Team Providers Care Council Member Name Role Phone Name, Kiel BAILEY Primary Care Provider Unavailabl e Name, Kiel BAILEY Primary Care Provider Unavailabl e Philly Vela DO Primary Care Pro vider Unavailable Name, Kiel BAILEY Primary Care Provider Unavailabl e Encounter Details Date Type Department Care Team Description 10/03/2014 Hospital Medical Records [address] [place] [address] Randall Garcia MD Social History Tobacco Use [...] on filedocumented in this encounter Care Teams Council Member Relationship Specialty Start Date End Date Kiel Shaffer MD PCP - General 05/26/09 04/27/15 Kiel Shaffer MD PCP - General Internal Medicine 04/28/15 05/05/15 Philly Vela DO PCP - General Internal Medicine 05/06/15 08/27/15 Kiel Shaffer MD PCP - General Internal Medicine 08/28/15 documented as of this encounter
--- OUTSIDE RECORDS SUMMARY | 2025-02-04 18:57 | XMS_ITS | Encounter Summary ---
Author [facility] 12[facility]23 Address [address] [place] [address] Care Team Providers Care Purification Supervisor Name Role Phone Name, Kiel BAILEY Primary Care Provider Unavailabl e Name, Kiel BAILEY Primary Care Provider Unavailabl e Philly Vela DO Primary Care Pro vider Unavailable Name, Kiel BAILEY Primary Care Provider Unavailabl e Encounter Details Date Type Department Care Team Description 03/30/2011 Assistant News Director Report Medical Records [address] [place] [address] Mohini Ellis, GERARDO Social History Tobacco Use [...] on filedocumented in this encounter Care Teams Purification Supervisor Relationship Specialty Start Date End Date Kiel Shaffer MD PCP - General 05/26/09 04/27/15 Kiel Shaffer MD PCP - General Internal Medicine 04/28/15 05/05/15 Philly Vela DO PCP - General Internal Medicine 05/06/15 08/27/15 Kiel Shaffer MD PCP - General Internal Medicine 08/28/15 documented as of this encounter
--- OUTSIDE RECORDS SUMMARY | 2025-02-04 18:57 | XMS_ITS | Encounter Summary ---
Author Organization [employer] Address [address] [place] [address] 7t [place] [address] Care Team Providers Care Wet Roaster Name Role Phone Name, Kiel BAILEY Primary Care Provider [phone] Katlyn Rodriguez PharmD Unavailable [phone] Nehal Ann RN Unavailable Unavailable Ania Spencer Unavailable Opal Carrasquillo Unavailable Catrachito Spencerda Unavailable Tj, Ania Unavailable Tj, Ania Unavailable Encounter Details Date Type Department Care Team (Late st Contact Info) Description 07/01/2022 Abstract [facility] MEDICINE [address] [place], [place] [phone] Name, MD Kiel [address] [place], [place] [phone] Social History Tobacco Use Types Packs/Day Years [...] Description 02/06/2025 2:30 PM EST Office Visit [address] [address] Mary Jo Perez FNP 230 [place] [address] 02/08/2025 9:30 AM EST Medication Management [address] [address] Katlyn Rodriguez PharmD [address] [place] [address] 03/13/2025 11:30 AM EST Telemedicine [address] [address] NameKiel MD [address] [place] [address] 04/10/2025 10:45 AM EST Office Visit [address] [address] Kiel Shaffer MD [address] [place] [address] 05/31/2025 11:00 AM EDT Telemedicine [address] [address] Opal Steiner, MARINA documented as of this [...] on filedocumented in this encounter Care Teams Wet Roaster Relationship Specialty Start Date End Date Name, MD Kiel [address] [place] [address] PCP - General Family Medicine 07/15/15 Katlyn Rodriguez PharmD [address] [place] [address] Pharmacist Internal Medicine 10/08/22 Nehal Ann, MARINA [address] [place] [address] Registered Nurse Family Medicine 08/20/24 10/29/24 Ania Spencer 08/20/24 11/26/24 Opal Carrasquillo Registered Nurse 10/29/24 11/26/24 Ania Spencer 12/14/24 12/26/24 Ania Spencer 01/09/25 01/25/25 Ania Spencer 01/30/25 Marta Ovalle Clinical Trial EducatorCath Lab 05/25/23 documented as of this encounter
--- OUTSIDE RECORDS SUMMARY | 2025-02-04 18:58 | XMS_ITS | Encounter Summary ---
Author Organization [employer] Address [address] [place] [address] 7t [place] [address] Care Team Providers Care Water Quality Specialist Name Role Phone Name, Kiel BAILEY Primary Care Provider [phone] Katlyn Rodriguez PharmD Unavailable Nehal Ann RN Unavailable Unavailable Ania Spencer Unavailable Opal Carrasquillo Unavailable [phone] Tj, Ania Unavailable Tj, Ania Unavailable Tj, Ania Unavailable Reason for Visit * Reason Onset Date Comments Nurse Triage 07/04/2024 Encounter Details Date Type Department Care Team (Late st Contact Info) Description 07/04/2024 Telephone [facility] MEDICINE [address] [place], [place] [phone] Name, MD Kiel 230 [place], [place] [phone] Nurse Triage Social History Tobacco Use Types [...] EDT Triage call with [facility] School Bus Driver [place] [id number]. Pt reports headache over the entire head. No involvement with eye area. BP is 104/60. Pt has been seen by neurologist at [facility] and is being tested for possible tumor. Pt was prescribed dexamethasone by neurologist. Pt pain is moderate . Pt has been prescribed roxicodone 10mg starting 06/28/24 but, reports pharmacy wouldn't fill prescription last time contacted. Pt daughter is speaking for Pt at thistime. Daughter is advised to call [facility] for prescription of roxicodone which [...] caller accepted this outcome. Contact pt at [phone] (citizen of [place]) documented in this encounter Plan of Treatment Upcoming Encounters Date Type Department Care Team (Late st Contact Info) Description 02/06/2025 2:30 PM EST Office Visit [address] [address] Mary Jo Perez FNP [address] [place] [address] 02/08/2025 9:30 AM EST Medication Management [address] [address] Katlyn Rodriguez, PharmD [address] [place] [address] 03/13/2025 11:30 AM EST Telemedicine [address] [address] NameKiel MD [address] [place] [address] 04/10/2025 10:45 AM EST Office Visit [address] [address] NameKiel MD [address] [place] [address] 05/31/2025 11:00 AM EDT Telemedicine [facility] MEDICINE [address] [place] [address] Opal Steiner, MARINA documented as of this [...] as of this encounter Care Teams Water Quality Specialist Relationship Specialty Start Date End Date Name, MD Kiel [address] [place] [address] PCP - General Family Medicine 07/15/15 Puia, Katlyn, PharmD [address] [place] [address] Pharmacist Internal Medicine 10/08/22 Nehal Ann RN [address] [place] [address] Registered Nurse Family Medicine 08/20/24 10/29/24 Ania Spencer 08/20/24 11/26/24 Opal Carrasquillo Registered Nurse 10/29/24 11/26/24 Ania Spencer 12/14/24 12/26/24 Ania Spencer 01/09/25 01/25/25 Ania Spencer 01/30/25 Marta Ovalle Dairy FarmworkerLog Haul Chain Feeder 05/25/23 documented as of this encounter
--- OUTSIDE RECORDS SUMMARY | 2025-02-04 18:58 | XMS_ITS | Encounter Summary ---
Author Organization [employer] Address [address] [facility] 7t [place] [address] Care Team Providers Care Fiberglass Laminator Name Role Phone Name, Kiel BAILEY Primary Care Provider [phone] Katlyn Rodriguez PharmD Unavailable Nehal Ann RN Unavailable Unavailable Ania Spencer Unavailable Opal Carrasquillo Unavailable [phone] Ania Spencer Unavailable Tj, Ania Unavailable Tj Ania Unavailable Encounter Details Date Type Department Care Team (Late st Contact Info) Description 02/20/2024 Telephone [facility] PEDS [address] [place], [place] [phone] Name, MD Kiel [address] [place] [address] Social History Tobacco Use Types Packs/Day Years [...] Description 02/06/2025 2:30 PM EST Office Visit [address] [address] Mary Jo Perez FNP [address] [place] [address] 02/08/2025 9:30 AM EST Medication Management [address] [address] Katlyn Rodriguez, PharmD [address] [place] [address] 03/13/2025 11:30 AM EST Telemedicine [address] [address] Name, MD Kiel [address] [place] [address] 04/10/2025 10:45 AM EST Office Visit [facility] MEDICINE [address] [place] [address] [place] [address] 05/31/2025 11:00 AM EDT Telemedicine [facility] MED[facility]INE [address] [place] [address] Opal Steiner, MARINA documented as of this [...] documented as of this encounter Care Teams Fiberglass Laminator Relationship Specialty Start Date End Date [place] [address] PCP - General Family Medicine 07/15/15 Puia, Katlyn, PharmD [address] [place] [address] Pharmacist Internal Medicine 10/08/22 Nehal Ann, MARINA [address] [place] [address] Registered Nurse Family Medicine 08/20/24 10/29/24 Ania Spencer 08/20/24 11/26/24 Opal Carrasquillo Registered Nurse 10/29/24 11/26/24 Ania Spencer 12/14/24 12/26/24 Ania Spencer 01/09/25 01/25/25 Ania Spencer 01/30/25 Marta Ovalle Restaurant WorkerReclamation Engineer 05/25/23 documented as of this encounter
--- OUTSIDE RECORDS SUMMARY | 2025-02-04 18:58 | XMS_ITS | Encounter Summary ---
Author Organization [employer] Address [address] [facility] 7t [place] [address] Care Team Providers Care Departmental Buyer Name Role Phone NameKiel MD Primary Care Provider [phone] Katlyn Rodriguez PharmD Unavailable [phone] Ania Spencre Unavailable Encounter Details Date Type Department Care Team ([facility] st Contact Info) Description 02/01/2025 Results Follow-Up [facility] MEDICINE [address] [place] [address] Name, MD Kiel [address] [place] [address] MR Brain w/o Contrast Social History Tobacco Use Types Packs/Day Years [...] Description 02/06/2025 2:30 PM EST Office Visit [address] [address] Mary Jo Perez, QAMAR [address] [place] [address] 02/08/2025 9:30 AM EST Medication Management [address] [address] Katlyn Rodriguez, PharmD [address] [place] [address] 03/13/2025 11:30 AM EST Telemedicine [address] [address] Kiel Shaffer MD [address] [place] [address] 04/10/2025 10:45 AM EST Office Visit [address] [address] Kiel Shaffer MD [address] [place] [address] 05/31/2025 11:00 AM EDT Telemedicine [facility] MEDICINE [address] [place] [address] Opal Steiner, MARINA documented as of this [...] blood pressure task No Flora Christianson, MARINA Patient has chronic kidney disease Care Plan Patient has chronic kidney disease No Floar Christianson, MARINA Patient has chronic kidney disease [...] task Care Plan Weekly blood pressure task IssaquahKiel Shaffer MD Weekly blood pressure task Care Plan Weekly blood pressure task IssaquahKiel Shaffer MD Patient has chronic kidney disease Care Plan Patient has chronic kidney disease IssaquahKiel Shaffer MD Patient has chronic kidney disease Care Plan Patient has chronic kidney disease IssaquahKiel Shaffer MD documented as of this encounter Visit Diagnoses [...] 02/01/2025 Patient has chronic kidney disease 02/01/2025 Assessment Noted Time PHQ-9 Depression Total Score: 7 09/05/19 11:46 AM EDT documented as of this encounter Care Teams Departmental Buyer Relationship Specialty Start Date End Date Name, MD Kiel [address] [place] [address] PCP - General Family Medicine 07/15/15 Katlyn Rodriguez PharmD [address] [place] [address] Pharmacist Internal Medicine 10/08/22 Ania Spencer 01/30/25 Marta Ovalle Revolving Field AssemblerTobacco Shaker 05/25/23 documented as of this encounter
--- OUTSIDE RECORDS SUMMARY | 2025-02-04 18:58 | XMS_ITS | Encounter Summary ---
Author Organization [facility] Prior to 12/23/2023 Address [address] [place] [address] Care Team Providers Care Child Support Investigator Name Role Phone Name, Kiel BAILEY Primary Care Provider Unavailabl e Name, Kiel BAILEY Primary Care Provider Unavailabl e Philly Vela DO Primary Care Pro vider Unavailable Name, Kiel BAILEY Primary Care Provider Unavailabl e Encounter Details Date Type Department Care Team Description 12/04/2014 Hospital Medical Records [address] [place] [address] Marcelo Husain Social History Tobacco Use Types [...] on filedocumented in this encounter Care Teams Child Support Investigator Relationship Specialty Start Date End Date Kiel Shaffer MD PCP - General 05/26/09 04/27/15 Kiel Shaffer MD PCP - General Internal Medicine 04/28/15 05/05/15 Philly Vela DO PCP - General Internal Medicine 05/06/15 08/27/15 Kiel Shaffer MD PCP - General Internal Medicine 08/28/15 documented as of this encounter
--- OUTSIDE RECORDS SUMMARY | 2025-02-04 18:58 | XMS_ITS | Encounter Summary ---
Author Organization [employer] Address [address] [place] [address] 7t [place] [address] Care Team Providers Care Salon Sales Consultant Name Role Phone Name, Kiel BAILEY Primary Care Provider [phone] Katlyn Rodriguez PharmD Unavailable Nehal Ann RN Unavailable Unavailable Ania Spencer Unavailable Opal Carrasquillo Unavailable Ania Spencer Unavailable Tj, Ania Unavailable Tj Ania Unavailable Encounter Details Date Type Department Care Team (Late st Contact Info) Description 08/26/2022 Orders Only [facility] MEDICINE [address] [place] [address] Leia Gonzales LPN Social History Tobacco Use [...] Description 02/06/2025 2:30 PM EST Office Visit [address] [address] Mary Jo Perez FNP [address] [place] [address] 02/08/2025 9:30 AM EST Medication Management [address] [address] Katlyn Rodriguez PharmD [address] [place] [address] 03/13/2025 11:30 AM EST Telemedicine [address] [address] Kiel Shaffer MD [address] [place] [address] 04/10/2025 10:45 AM EST Office Visit [address] [address] Kiel Shaffer MD [address] [place] [address] 05/31/2025 11:00 AM EDT Telemedicine [address] [address] Opal Steiner, RN documented as of this encounter Visit Diagnoses Not on filedocumented in this encounter Additional Health Concerns Assessment Noted Time PHQ-9 Depression Total Score: 7 07/15/19 23 2:39 PM EDT documented as of this encounter Care Teams Salon Sales Consultant Relationship Specialty Start Date End Date Kiel Shaffer MD [address] [place] [address] PCP - General Family Medicine 07/15/15 Katlyn Rodriguez PharmD [address] [place] [address] Pharmacist Internal Medicine 10/08/22 Nehal Ann, RN [address] [place] [address] Registered Nurse Family Medicine 08/20/24 10/29/24 Ania Spencer 08/20/24 11/26/24 Opal Carrasquillo Registered Nurse 10/29/24 11/26/24 Ania Spencer 12/14/24 12/26/24 Ania Spencer 01/09/25 01/25/25 Ania Spencer 01/30/25 Marta Ovalle Credit Collections RepMaterials Management Supervisor 05/25/23 documented as of this encounter
--- OUTSIDE RECORDS SUMMARY | 2025-02-04 18:58 | XMS_ITS | Encounter Summary ---
Author Organization [facility] Prior to 12/23/2023 Address [address] [place] [address] Care Team Providers Care Composite Technician Name Role Phone Name, Kiel BAILEY Primary Care Provider Unavailabl e Name, Kiel BAILEY Primary Care Provider Unavailabl e Philly Vela DO Primary Care Pro vider Unavailable Name, Kiel BAILEY Primary Care Provider Unavailabl e Encounter Details Date Type Department Care Team Description 11/24/2014 Hospital Medical Records [address] [place] [address] Social History Tobacco Use Types Packs/Day Years [...] on filedocumented in this encounter Care Teams Composite Technician Relationship Specialty Start Date End Date Kiel Shaffer MD PCP - General 05/26/09 04/27/15 Kiel Shaffer MD PCP - General Internal Medicine 04/28/15 05/05/15 Philly Vela DO PCP - General Internal Medicine 05/06/15 08/27/15 Kiel Shaffer MD PCP - General Internal Medicine 08/28/15 documented as of this encounter
--- OUTSIDE RECORDS SUMMARY | 2025-02-04 18:58 | XMS_ITS | Encounter Summary ---
Author Organization [employer] Address [address] [facility] 7t [place] [address] Care Team Providers Care Cvt Rn Name Role Phone Name, Kiel BAILEY Primary Care Provider [phone] Katlyn Rodriguez PharmD Unavailable [phone] Ania Spencer Unavailable Reason for Visit * Reason Comments Care Coordination [facility] D Follow up Encounter Details Date Type Department Care Team (Latest Contact Info) Description 01/30/2025 Patient Outreach [facility] PEDS [address] [place] [address] Name, MD Kiel [address] [place] [address] Care Coordination ([facility] ED Follow up) Social History Tobacco Use Types Packs/Day Years [...] encounter Progress Notes * Ania Spencer - 01/30/2025 10:51 AM EST [facility] assigned patient visited [facility] ED on 01/30/25. ED visit note has been scanned intopatient's chart. Notification sent to the Clinical team nurses to follow up with patient for ED status check and medication reconciliation. * Renetta Power RN - 01/30/2025 10:51 AM EST Noted. Status check addressed by team nurse in encounter dated on 01/31/25. documented in this encounter Plan of Treatment Upcoming Encounters Date Type Department Care Team (Late st Contact Info) Description 02/06/2025 2:30 PM EST Office Visit [facility] MEDICINE [address] [place] [address] Mary Jo Perez FNP [address] [place] [address] 02/08/2025 9:30 AM EST Medication Management [address] [address] PuiaKatlyn, PharmD [address] [place] [address] 03/13/2025 11:30 AM EST Telemedicine [address] [address] Kiel Shaffer MD [address] [place] [address] 04/10/2025 10:45 AM EST Office Visit [address] [address] Kiel Shaffer MD [address] [place] [address] 05/31/2025 11:00 AM EDT Telemedicine [address] [address] Opal Steiner RN documented as of this [...] Weekly blood pressure task No Toro, Leny Weekly blood pressure task [...] Patient has chronic kidney disease No Ania Sepncer Weekly blood pressure task Care Plan Weekly blood pressure task No Tj Ania Weekly blood pressure task [...] chronic kidney disease No Flora Christianson RN Patient has chronic kidney disease Care Plan Patient has chronic kidney disease No Flora Christianson RN Weekly blood pressure task Care Plan Weekly blood pressure task No Colon Alexy Phillipsla Weekly blood pressure task Care Plan Weekly blood pressure task No Colon Phillips Rosario Patient has chronic kidney disease Care Plan Patient has chronic kidney disease No Colon Phillips Rosario Patient has chronic kidney disease Care Plan Patient has chronic kidney disease No Colon Alan Rosario Weekly blood pressure task Care Plan Weekly blood pressure task [place]iel Shaffer MD Weekly blood pressure task Care Plan Weekly blood pressure task [place]iel Shaffer MD Patient has chronic kidney disease Care Plan Patient has chronic kidney disease [place]iel Shaffer MD Patient has chronic kidney disease Care Plan Patient has chronic kidney disease [place]Kiel Shaffer MD documented as of this encounter [...] documented as of this encounter Care Teams Cvt Rn Relationship Specialty Start Date End Date Name, MD Kiel [address] [place] [address] PCP - General Family Medicine 07/15/15 Katlyn Rodriguez PharmD [address] [place] [address] Pharmacist Internal Medicine 10/08/22 Ania Spencer 01/30/25 Marta Ovalle Appraisal ManagerEsl Professor 05/25/23 documented as of this encounter
--- OUTSIDE RECORDS SUMMARY | 2025-02-04 18:58 | XMS_ITS | Clinical Summary ---
Author Organization [employer] Address [address] [place] [address] [address] [place] [address] Care Team Providers Care Dairy Husbandman Name Role Phone Name, Kiel BAILEY Primary Care Provider [phone] Katlyn Rodriguez PharmD Unavailable [phone] Ania Spencer Unavailable Allergies Active Allergy [...] complication, with long-term current use of insulin ([facility]) Inject 15 mg under the skin 1 (one) time per week. 2 mL 11 5 10:56 AM EST 06/08/19 25 Active ezetimibe (Zetia) 10 MG tabletIndicatio ns:Type 2 diabetes mellitus with other specified complication, with long-term current use of insulin ([facility]) TAKE 1 TABLET BY MOUTH EVERY MORNING 30 tablet 11 07/24/19 25 Active cetirizine (ZyrTEC) 10 MG tablet TAKE 1 TABLET BY MOUTH EVERY MORNING 90 tablet 1 07/25/19 25 Active gabapentin (Neurontin) 800 MG tablet Take 1 tablet (800 mg) by mouth 3 times daily. 90 tablet 11 5 6:01 PM EST 08/21/19 25 026 Active aspirin 81 MG chewable tabletIndicatio ns:Type 2 diabetes mellitus with other specified complication, with long-term current use of insulin ([facility]) Chew 1 tablet (81 mg) in the [...] tablet 3 09/13/19 25 Active TechLite Pen Radisson 32G X 4 MM miscIndications :Type 2 diabetes mellitus with other specified complication ([facility]) USE DIRECTED FOUR TIMES DAILY 100 each 11 5 10:56 AM EST 09/29/19 25 Active Blood Glucose Monitoring Suppl (FreeStyle Lite) deviceIndicatio ns:Type 2 diabetes mellitus with other specified complication, with long-term current use of insulin ([facility]) Inject 1 each under the skin 2 times daily. Use to test blood sugar as directed 1 each 10/03/19 25 Active glucose blood (FREESTYLE LITE) test stripIndication s:Type 2 diabetes mellitus with other specified complication, with long-term current use of insulin ([facility]) Use to test blood sugar 2 times daily 50 strip 11 5 6:01 PM EST 10/03/19 25 Active TRUEplus Lancets 33G miscIndications :Type 2 diabetes mellitus with other specified complication, with long-term current use of insulin ([facility]) Use to test blood sugar twice daily as directed 100 each 11 5 6:01 PM EST 10/03/19 25 Active traZODone (Desyrel) 100 MG [...] THE EVENING 180 tablet 12/11/19 25 Active Alcohol Swabs (Alcohol Prep) 70 % pads USE DIRECTED TWICE DAILY 100 each 5 5 6:01 PM EST 12/27/19 25 Active lidocaine (Lidoderm) 5 % [...] complication, with long-term current use of insulin ([facility]),Hypertrig lyceridemia TAKE 2 CAPSULES BY MOUTH TWICE DAILY IN THE MORNING AND EVENING WITH MEALS 360 capsule 3 01/09/20 25 Active Varenicline Tartrate, Starter, (Chantix Starting [...] complication, with long-term current use of insulin ([facility]) Inject 50 Units under the skin at bedtime. 15 mL 1 01/10/20 25 Active rosuvastatin (Crestor) 40 MG tabletIndicatio ns:Type 2 diabetes mellitus with other specified complication, with long-term current use of insulin ([facility]),Tobacco use disorder,Histor y of stroke,Hypertri glyceridemia Take 1 tablet (40 mg) by mouth Once per day. 90 tablet 1 01/10/20 25 Active Ventolin HFA 108 (90 Base) MCG/ACT inhalerIndicati ons:Moderate asthma with exacerbation, unspecified whether persistent INHALE 2 PUFFS BY MOUTH EVERY 4 TO 6 HOURS NEEDED FOR WHEEZING 18 g 5 5 6:01 PM EST 01/22/20 25 Active acetaminophen (Tylenol 8 Hour) 650 MG ER tablet TAKE 1 TABLET BY MOUTH EVERY 8 HOURS NEEDED FOR MODERATE PAIN OR FOR HEADACHE 50 tablet 1 02/02/20 25 Active oxyCODONE (Roxicodone) 10 MG immediate release tabletIndicatio ns:Cerebellar mass,Chronic intractable headache, unspecified headache type Take 1 tablet (10 mg) by mouth every 8 (eight) hours if needed for severe pain. Do not start before February 08, 2025. 84 tablet 02/09/20 25 026 Active Icosapent Ethyl (Vascepa) 1 g capsuleIndicati ons:Type 2 diabetes mellitus with other specified complication, with long-term current use of insulin ([facility]),Hypertrig lyceridemia Take 2 capsules (2 g) by [...] complication, with long-term current use of insulin ([facility]),History of stroke,Tobacco use disorder,Hypert riglyceridemia Take 1 tablet (40 mg) by mouth Once per day. 90 tablet 1 08/17/19 25 025 Discontinued(R eorder (will not trigger notification to Pharmacy)) meloxicam (Mobic) 7.5 MG tablet TAKE 1 TABLET BY MOUTH ONCE DAILY 30 tablet 11 09/13/19 25 025 Discontinued(T herapy completed) insulin glargine (Lantus SoloStar) 100 UNIT/ML penIndications: Type 2 diabetes mellitus with other specified complication, with long-term current use of insulin ([facility]) Inject 46 Units under the skin at bedtime. 11/28/19 25 025 Discontinued(R eorder (will not trigger notification to Pharmacy)) oxyCODONE (Roxicodone) 10 MG immediate release tabletIndicatio ns:Cerebellar mass,Chronic intractable headache, unspecified headache type Take 1 tablet (10 mg) by mouth 3 times daily for 28 days. Do not start before December 14, 2024. 84 tablet 12/15/19 25 025 Discontinued acetaminophen (Tylenol 8 Hour) 650 MG ER tablet Take 1 tablet (650 mg) by mouth every 8 (eight) hours if needed for moderate pain or headaches. Do not crush, chew, or split. 50 tablet 1 5 6:01 PM EST 12/25/19 25 025 Discontinued oxyCODONE (Roxicodone) 10 MG immediate release tabletIndicatio ns:Cerebellar mass,Chronic intractable headache, unspecified headache type TAKE 1 TABLET BY MOUTH THREE TIMES DAILY FOR 28 DAYS 84 tablet 5 9:16 AM EST 01/12/20 25 025 Discontinued(R eorder (will not trigger notification to Pharmacy)) ibuprofen 600 MG tablet Take 1 tablet (600 mg) by mouth every 8 (eight) hours if needed for mild pain for up to 20 days. 60 tablet 5 1:00 PM EST 01/11/20 25 025 Active Problems Problem Noted Date Diagnosed Date [...] eddi as late effect of cerebrovascular accident ([facility]) 11/01/2024 Assessment & Plan (11/01/2024 4:03 PM [...] to the hospital Case was presented to [facility] emergency room Hemiparesis of left dominant side ([facility]) 07/23 Assessment & Plan (08/17/2024 1:36 PM EDT): Patient will benefit from PT evaluation and after evaluation at the hospital to be referred to acute PT center Cerebrovascular accident (CVA) ([facility]) 025 History of stroke 07/30/2024 Cerebellar mass 06/28/2024 Chronic, continuous use of opioids 11/29/2023 Overview (11/29/2023): Dx: OA knee Tx: oxycodone 10mg BID DIE TECHNICIAN last signed: 05/03/23 Chronic pain syndrome [...] PM EST): I presented the case to [facility] emergency room, patient will go by [...] tolerate CPAP On nocturnal oxygen Follows with [facility] pulmonary ([place]) Cocaine abuse, episodic use (CMS/HCC) [...] for Paxlovid sent to the pharmacy -Utilized [place] drug interaction chemical checker to assess interactions with current med [...] 06/28/2024 Pancytopenia 04/18/2018 06/28/2024 Simple chronic bronchitis ([facility]) 04/18/2018 06/28/2024 Overview (07/14/2022): Severe and worse in the spring. Last hospitalazion in May and 3 ER visits Hospital 08/02 Acute exacerbation of chroni c obstructive airways disease with asthma ([facility]) 01/02/2018 Seizure ([facility]) 11/18/2017 06/28/2024 Anterior knee pain 10/20/2016 Mesenteric [...] Encounters Date Type Department Care Team Description 02/04/2025 11:30 AM EST Clinical Support [address] [address] Opal Steiner, RN Long-term current use of opiate analgesic 02/04/2025 Orders Only [facility] External Provider, [facility] 02/04/[address] [address] Opal Steiner, RN Cerebellar mass; Chronic intractable headache, unspecified headache type 02/04/2025 Travel 02/01/2025 Results Follow-Up [address] [address] Kiel Shaffer MD MR Brain w/o Contrast 02/01/2025 Refill [facility] [address] [place] [address] Victorino Graves MD 01/31/2025 10:30 AM EST Telemedicine [address] [phone] Flora Christianson RN Hemiparesis of left dominant side as late effect of cerebral infarction (CMS/HCC) (HCC); Recurrent falls; Tenderness of back 01/31/[address] [address] Kiel Shaffer MD Durable Medical Equipment 01/30/2025 Patient Outreach [facility] [address] [place] [address] Kiel Shaffer MD Care Coordination ([facility] ED Follow up) 01/30/2025 Patient Outreach [facility] [address] [place] [address] Kiel Shaffer MD Care Coordination (CP Care Coordination Chart Review) 01/30/2025 Patient Outreach [address] [address] Kiel Shaffer MD 01/29/2025 Orders Only GENERIC EXTERNAL DATA DEPARTMENT Provider, Generic External Data 01/28/2025 Orders Only [facility] [address] [place] [address] ProviderGlo MD 01/28/[address] [address] Kiel Shaffer MD 01/25/2025 Patient Outreach [facility] [address] [place] [address] Kiel Shaffer MD Care Coordination (Communication to pts assigned CP Coordinator ) 01/23/[address] [address] Opal Steiner, MARINA DIE TECHNICIAN Tier 3 / Tele 01/22/[address] [address] Kiel Shaffer MD Durable Medical Equipment 01/22/[address] [address] Kiel Shaffer MD Nurse Triage 01/18/[address] [address] Kiel Shaffer MD Moderate asthma with exacerbation, unspecified whether persistent 01/10/2025 11:30 AM EST Office Visit [address] [address] Kiel Shaffer MD Hemiparesis of left dominant side as late effect of cerebrovascular disease, unspecified cerebrovascular disease type (CMS/HCC) (HCC) (Primary Dx); Cerebrovascular accident (CVA), unspecified mechanism (CMS/HCC) (HCC); Abnormal MRI of the head; Type 2 diabetes mellitus with other specified complication, with long-term current use of insulin (HCC) 01/10/2025 Travel 01/10/2025 Patient Outreach [address] [phone] Renetta Power, MARINA 01/09/[address] [phone] Renetta Power, MARINA 01/09/[address] [address] Kiel Shaffer MD Chart Prep 01/09/2025 Patient Outreach [facility] [address] [place] [address] Kiel Shaffer MD Care Coordination ([facility] ED Follow Up) 01/09/2025 Travel 01/09/2025 Patient Outreach [facility] [address] [place] [address] Kiel Shaffer MD 01/08/2025 Orders Only GENERIC EXTERNAL DATA DEPARTMENT Provider, Generic External Data 01/08/2025 Refill [facility] [address] [place] [address] Anisha Gonzalez, GERARDO Cerebellar mass; Chronic intractable headache, unspecified headache type 01/06/2025 Refill [facility] [address] [place] [address] Katlyn Rodriguez PharmD Type 2 diabetes mellitus with other specified complication, with long-term current use of insulin (HCC); Hypertriglyceridemia 12/30/2024 Refill [facility] [address] [address] Sarita Baker MD Nondisplaced fracture of right radial styloid process, initial encounter for closed fracture 12/26/2024 Patient Outreach [facility] [address] [place] [address] Kiel Shaffer MD Care Coordination (Communication to pt assigned CP Coordinator) 12/26/2024 Refill [facility] [address] [place] [address] Kiel Shaffer MD 12/25/2024 Orders Only GENERIC EXTERNAL DATA DEPARTMENT Provider, Generic External Data 12/25/2024 Telephone [facility] [address] [place] [address] Kiel Shaffer MD FYI 12/24/2024 10:40 AM EST Office Visit [facility] [address] [address] Victorino Graves MD Acute pain of left shoulder (Primary Dx); Injury of left shoulder, subsequent encounter; Left-sided weakness 12/24/2024 Telephone [facility] [address] [place] [address] Kiel Shaffer MD Results (Pt requesting wheelchair , pt stated she's falling too much. ) 12/24/2024 Travel 12/14/2024 Telephone [facility] [address] [place] [address] Elsie aHll, COMPUTER HARDWARE DESIGNER Follow-up 12/14/2024 Patient Outreach [facility] [address] [place] [address] Kiel Shaffer MD Care Coordination ( Care Coordination Chart Review) 12/14/2024 Patient Outreach [facility] [address] [place] [address] Kiel Shaffer MD Care Coordination ([facility] ED Follow up) 12/14/2024 Patient Outreach [address] [address] Kiel Shaffer MD 12/13/2024 10:40 AM EDT Office Visit [facility] [address] [address] Lorenzo Chavez MD Acute pain of left shoulder (Primary Dx); Acute pain of right knee; Nondisplaced fracture of right radial styloid process, subsequent encounter for closed fracture with delayed healing 12/13/2024 Travel 12/13/2024 Refill [facility] [address] [place] [address] Kiel Shaffer MD Cerebellar mass; Chronic intractable headache, unspecified headache type 12/10/2024 Refill [facility] [address] [address] Kiel Shaffer MD 12/07/2024 Refill [facility] [address] [place] [address] Kiel Shaffer MD Cerebellar mass; Chronic intractable headache, unspecified headache type 11/30/2024 Orders Only [facility] [address] [place] [address] Kiel Shaffer MD 11/27/2024 Travel 11/26/2024 Travel 11/26/2024 Patient Outreach [address] [address] Kiel Shaffer MD Care Management ([facility] TC #3-case closed) 11/15/2024 11:30 AM EDT Clinical Support [address] [address] Opal Steiner, RN Long-term current use of opiate analgesic (Primary Dx) 11/15/2024 Refill [facility] [address] [place] [address] Opal Steiner, RN Cerebellar mass; Chronic intractable headache, unspecified headache type; Long-term current use of opiate analgesic 11/15/2024 Travel 11/12/2024 Telephone [facility] [address] [place] [address] Barbara Martinez [place] 11/12/2024 Telephone [facility] [address] [place] [address] Barbara Martinez [place] DECEMBER RECALLS 11/08/2024 Results Follow-Up [facility] [address] [place] [address] Lorenzo Chavez MD XR Hand 3+ Views Left 11/08/2024 Travel 11/06/2024 5:00 PM EDT Office Visit [facility] [address] [place] [address] Lorenzo Chavez MD Swelling of left hand (Primary Dx) 11/06/2024 Travel from Last 3 Months Immunizations Immunization Administration Dates Next Due HepB-CpG 11/05/2022,10/08/2022 Influenza Injectable Quadriv alant Preservative Free IIV4 MDCK 11/05/2022 Influenza Whole 11/06/2010 Influenza injectable quadriv alent IIV4 with preservative 01/09/2016 Influenza injectable quadriv alent preservative free 11/13/2021,01/21/2021,01/07/2020,12/13,01/30/2018 Influenza, IIV3, injectable 02/03/2016,1 ,12/16/2013,02/23,11/02/2012,10/26/2011,01/13/2011 ,11/03/2010,11/21/2009 Influenza, seasonal, injecta ble, preservative free 11/27/2024,11/29/2023 Novel [id number], all formulations 05/31/2009 Pneumococcal Conjugate PCV 20 [...] Pulse 114 02/04/2025 12:02 PM EST Temperature 36.4 C (97.5 F) 01/10/2025 [...] Description 02/06/2025 2:30 PM EST Office Visit [address] [address] Mary Jo Perez, QAMAR [address] [place] [address] 02/08/2025 9:30 AM EST Medication Management [address] [address] Katlyn Rodriguez, PharmD [address] [place] [address] 03/13/2025 11:30 AM EST Telemedicine [address] [address] Kiel Shaffer MD [address] [place] [address] 04/10/2025 10:45 AM EST Office Visit [address] [address] Kiel Shaffer MD [address] [place] [address] 05/31/2025 11:00 AM EDT Telemedicine [facility] [address] [place] [address] Opal Steiner, RN Health Maintenance Due Date [...] Plan Weekly blood pressure task No Katlyn Rodriguez, PharmD Patient has chronic [...] Plan Patient has chronic kidney disease No eRnetta Power RN Weekly blood pressure task Care [...] task Care Plan Weekly blood pressure task HoriconKiel Shaffer MD Weekly blood pressure task Care Plan Weekly blood pressure task HoriconKiel Shaffer MD Patient has chronic kidney disease Care Plan Patient has chronic kidney disease HoriconKiel Shaffer MD Patient has chronic kidney disease Care Plan Patient has chronic kidney disease HoriconKiel Shaffer MD Weekly blood pressure task Care Plan Weekly blood pressure task No Opal Steiner RN Weekly blood pressure task Care Plan Weekly blood pressure task No Opal Steiner, MARINA Patient has chronic kidney disease Care Plan Patient has chronic kidney disease No Opal Steiner, RN Patient has chronic kidney disease Care Plan Patient has chronic kidney disease No Opal Steiner, extrusion line operator Procedure Name Priority Date/Time Associated Diagnosis Comments CT HEAD WO CONTRAST Routine 02/04/2025 5 :22 PM EST XR CHEST 2 VIEWS Routine 02/04/2025 1:05 PM EST MR BRAIN WO CONTRAST Routine 02/01/2025 2:[address] CHEST WO CONTRAST Routine 01/29/2025 9:31 [...] 12:00 PM EDT Swelling of left hand BI MAMMOGRAM SCREENING TOMOSYNTHESIS BILATERAL Routine 06/03/2023 [...] Relevant to Health Maintenance Results * CT Head w/o Contrast (02/04/2025 5:22 PM EST) Only the most recent of2 resultswithin the time period is included. Anatomical Region Laterality Modality Head, Neck Computed Tomogra phy 02/04/2025 5:22 PM EST Narrative 02/04/2025 5:24 PM EST [place] [address] CT Scan Report Signed Patient: Sarita Puga MR#: [id number] 92 : 1965 Acct:[id number] Age/Sex: 59 / F ADM Date: 02/04/25 Loc: HO.ED Attending Dr: Ordering Physician: Luis Daniel Velazquez DO Date of Service: 02/04/25 Procedure(s): CT head/brain wo IV con Accession Number(s): [id number] cc: Name,Kiel BAILEY; Luis Daniel Velazquez DO Report Number: [id number]: Total DLP = 690.00 mGy-cm Reason for [...] This document has been electronically signed by: Jluian Hung MD on 02/04/2025 17:22:37 Dictated By: Julian Hung MD Signed By: <Electronically signed by Julian Hung MD in OV> 02/04/251722 DD/ 21 TD/TT: 02/04/251721 Control Equipment Electrician: Procedure Note Donotuseinterpreter, Image - 02/04/[address] [place] [address] [address] Scan Report Signed Patient: Sarita Puga MMR#: [id number] 92 : 1965Acct:[id number] Age/Sex: 59 / FADM Date: 02/04/25 Loc: HO.ED Attending Dr: Ordering Physician: Luis Daniel Velazquez DO Date of Service: 02/04/25 Procedure(s): CT head/brain wo IV con Accession Number(s): [id number] cc: Kiel Shaffer MD; Luis Daniel Velazquez DO Report Number: [id number]: Total DLP = 690.00 mGy-cm Reason for [...] by Julian Hung MD in OV> 02/04/25 1723 DD/ 172 TD/TT: 02/04/25 172 Control Equipment Electrician: [facility] External Provider IMG CT PROCEDURES Final Result * XR Chest 2 Views (02/04/2025 1:05 PM EST) Only the most recent of2 resultswithin the time period is included. Anatomical Region Laterality Modality Chest Radiographic Diana ging 02/04/2025 1:05 PM EST Narrative 02/04/2025 1:24 PM EST [address] [address] XRay Report Signed Patient: Sarita Puga MR#: [id number] 92 : 1965 Acct:[id number] Age/Sex: 59 / F ADM Date: 02/04/25 Loc: HO.ED Attending Dr: Ordering Physician: Natalie Martell Date of Service: 02/04/25 Procedure(s): XR chest 2V Accession Number(s): [id number] cc: Natalie Martell; Name,Kiel BAILEY Reason for [...] 02/04/25 1322 DD/ 1305 TD/TT: 02/04/25 1311 Control Equipment Electrician: Procedure Note Donotuseinterpreter, Image - 02/04/[address] [address] XRay Report Signed Patient: Sarita Puga MMR#: [id number] 92 : 1965Acct:[id number] Age/Sex: 59 / FADM Date: 02/04/25 Loc: HO.ED Attending Dr: Ordering Physician: Natalie Martell Date of Service: 02/04/25 Procedure(s): XR chest 2V Accession Number(s): [id number] cc: Natalie Martell; Name,Kiel BAILEY Reason for [...] 02/04/25 1322 DD/ 1305 TD/TT: 02/04/25 1311 Control Equipment Electrician: [facility] External Provider IMG XR PROCEDURES Final Result * MR Brain w/o Contrast (02/01/2025 2:06 PM EST) Anatomical Region Laterality Modality Brain Magnetic Resonan ce 02/01/2025 2:06 PM EST Narrative 02/01/2025 2:51 PM EST [address] [address] Magnetic Resonance Report Signed Patient: Sarita Puga MR#: [id number] 92 : 1965 Acct:[id number] Age/Sex: 59 / F ADM Date: 02/01/25 Loc: HO.MRI Attending Dr: Kiel Shaffer MD Ordering Physician: Kiel Shaffer MD Date of Service: 02/01/25 Procedure(s): MR head/brain wo con Accession Number(s): [id number] cc: Marcia Villaseñor MD; Name,Kiel BAILEY Reason for Exam: CVA, HEMIPARESIS OF LT DOMINANT SIDE CEREBROVASCULAR DISEASE F/U ABN MRI EXAMINATION: MR BRAIN WITHOUT CONTRAST CLINICAL INFORMATION: CVA. Hemiparesis with left dominance side. COMPARISON: July 10, 2024 and June 18, 2024. TECHNIQUE: Axial DWI sequence. Axial and ADC map. Sagittal T1 sequence.. FINDINGS: Hyperintense diffusion weighted imaging signal abnormality involving the peripheral aspect of the thalami extending into the right and to a lesser extent left midbrain and left ventral geovany with associated subtle hypointense signal on the corresponding ADC map. Hyperintense diffuse weighted image signal within the splenium of the corpus callosum extending from the midline to the left and right. Sellar/suprasellar region is normal. Craniocervical junction is intact with normal position of the cerebellar tonsils. MR/MR head/brain wo con IMPRESSION: Limited exam. Consider cytotoxic lesions of corpus callosum related to seizures versus metabolic disturbances versus infectious versus malignancy versus drug related and or toxins related. Vascular versus autoimmune disorders should be considered.. Electronically signed by: Felix Fall MD 02/01/2025 02:49 PM [facility] Dictated By: Felix Mckinnon MD Signed By: <Electronically signed by Felix Tilley MD in OV> 02/01/25 1449 DD/ 1406 TD/TT: 02/01/25 1415 Control Equipment Electrician: Procedure Note Donotuseinterpreter, Image - 02/01/[address] [address] Magnetic Resonance Report Signed Patient: Sarita Puga MMR#: [id number] 92 : 1965Acct:[id number] Age/Sex: 59 / FADM Date: 02/01/25 Loc: HO.MRI Attending Dr: Kiel Shaffer MD Ordering Physician: Kiel Shaffer MD Date of Service: 02/01/25 Procedure(s): MR head/brain wo con Accession Number(s): [id number] cc: Marcia Villaseñor MD; Name,Kiel BAILEY Reason for Exam: CVA, HEMIPARESIS OF LT DOMINANT SIDE CEREBROVASCULARDISEASE F/U ABN MRI EXAMINATION: MR BRAIN WITHOUT CONTRAST CLINICAL INFORMATION: CVA. Hemiparesis with left dominance side. COMPARISON: July 10, 2024 and June 18, 2024. TECHNIQUE: Axial DWI sequence. Axial and ADC map. Sagittal T1 sequence.. FINDINGS: Hyperintense diffusion weighted imaging signal abnormality involving the peripheral aspect of the thalami extending into the right and to a lesser extent left midbrain and left ventral geovany with associated subtle hypointense signal on the corresponding ADC map. Hyperintense diffuse weighted image signal within the splenium of the corpus callosum extending from the midline to the left and right. Sellar/suprasellar region is normal. Craniocervical junction is intact with normal position of the cerebellar tonsils. MR/MR head/brain wo con IMPRESSION: Limited exam. Consider cytotoxic lesions of corpus callosum related to seizures versus metabolic disturbances versus infectious versus malignancy versus drug related and or toxins related. Vascular versus autoimmune disorders should be considered.. Electronically signed by: Felix Fall MD 02/01/2025 02:49 PM EST Dictated By: Felix Mckinnon MD Signed By: <Electronically signed by Felix Tilley MDin OV> 02/01/25 1449 DD/ 1406 TD/TT: 02/01/25 1415 Control Equipment Electrician: Kiel Shaffer MD IMG MRI PROCEDURES Final Result * CT Chest w/o Contrast (01/29/2025 9:31 PM EST) Anatomical Region Laterality Modality Body, Chest Computed Tomogra phy 01/29/2025 9:31 PM EST Narrative 01/29/2025 9:32 PM EST [address] [address] [address] Scan Report Signed Patient: Sarita Puga MR#: [id number] 92 : 1965 Acct:[id number] Age/Sex: 59 / F ADM Date: 01/29/25 Loc: HO.ED Attending Dr: Ordering Physician: Brown Blair Date of Service: 01/29/25 Procedure(s): CT chest wo IV con Accession Number(s): [id number] cc: Brown Blair; Name,Kiel BAILEY Report Number: [id number]: Total DLP = 457.00 mGy-cm Reason for [...] in OV> 01/29/252130 DD/ 30 TD/TT: 01/29/252130 Control Equipment Electrician: Procedure Note Donotuseinterpreter, Image - 01/29/[address] [address] [address] Scan Report Signed Patient: Sarita Puga MMR#: [id number] 92 : 1965Acct:[id number] Age/Sex: 59 / FADM Date: 01/29/25 Loc: .ED Attending Dr: Ordering Physician: Brown Blair Date of Service: 01/29/25 Procedure(s): CT chest wo IV con Accession Number(s): [id number] cc: Brown Blair; Kiel Shaffer MD Report Number: [id number]: Total DLP = 457.00 mGy-cm Reason for [...] in OV> 01/29/252130 DD/ 30 TD/TT: 01/29/252130 Control Equipment Electrician: [facility] External Provider IMG CT PROCEDURES Edited Result - Final * SARS-CoV-2 RNA, Influenza A/B, and RSV RNA, Ql NAAT (01/29/2025 9:27 PM EST) Only the most recent of2 resultswithin the time period is included. Influenza A PCR NEGATIVE Negative [facility] Influenza B PCR NEGATIVE Negative [facility] Resp Syncy Virus RNA Qual PCR NEGATIVE Negative [facility] SARS COV2 PCR NEGATIVE Negative [facility] Comment:All test results mus t [...] use by authorized laboratories.Testing performed on the [employer] GeneXpert utilizingreal-time RT-PCR.All SARS CoV2 and positive influenza A/B results arereported to [facility]. 01/29/2025 9:27 PM EST 01/29/2025 9:33 PM EST Generic External Data Provider LAB MICROBIOLOGY - GENERAL ORDERABLES Final Result [facility] [address] [place] [phone] * Urinalysis w/reflex microscopic (01/29/2025 9:27 PM EST) Color Urine Yellow [facility] Appearance Urine Clear [facility] PH 6.5 5.0 - 9.0 [facility] Glucose Urine UA Negative Negative mg/dL [facility] Urine Blood Negative Negative [facility] Specific Mineral - Urine 1.020 1.005 - 1.025 [facility] Urine Protein Negative Neg-Trace mg/dL [facility] Urine Ketones Negative Negative mg/dL [facility] Nitrite Urine Negative Negative [facility] Leukocyte Esterase Urine Negative Negative [facility] 01/29/2025 9:27 PM EST 01/29/2025 9:33 PM EST Narrative [facility] - 01/29/2025 9:42 PM EST Urine, Clean Catch us Generic External Data Provider LAB URINE ORDERAB LES Final Result Performing Organization Address City/State/[facility] Co de Phone Number [facility] [address] [place] [phone] * CT Abdomen Pelvis w/o Contrast (01/29/2025 9:24 PM EST) Anatomical Region Laterality Modality Body, Pelvis, Abdomen Computed T omography 01/29/2025 9:24 PM EST Narrative 01/29/2025 9:25 PM EST [address] [address] [address] Scan Report Signed Patient: Sarita Puga MR#: [id number] 92 : 1965 Acct:[id number] Age/Sex: 59 / F ADM Date: 01/29/25 Loc: HO.ED Attending Dr: Ordering Physician: Brown Blair Date of Service: 01/29/25 Procedure(s): CT abdomen pelvis wo IV con Accession Number(s): [id number] cc: Brown Blair; Name,Kiel BAILEY Report Number: [id number]: Total DLP = 994.00 mGy-cm Reason for [...] in OV> 01/29/252123 DD/ 23 TD/TT: 01/29/252123 Control Equipment Electrician: Procedure Note Donotuseinterpreter, Image - 01/29/[address] [place] [address] [address] Scan Report Signed Patient: Sarita Puga MMR#: [id number] 92 : 1965Acct:[id number] Age/Sex: 59 / FADM Date: 01/29/25 Loc: .ED Attending Dr: Ordering Physician: Brown Blair Date of Service: 01/29/25 Procedure(s): CT abdomen pelvis wo IV con Accession Number(s): [id number] cc: Brown Blair; Name,Kiel BAILEY Report Number: [id number]: Total DLP = 994.00 mGy-cm Reason for [...] in OV> 01/29/252123 DD/ 23 TD/TT: 01/29/252123 Control Equipment Electrician: [facility] External Provider IMG CT PROCEDURES Edited Result - Final * CT Cervical Spine w/o Contrast (01/29/2025 9:21 PM EST) Anatomical Region Laterality Modality Spine, C-spine Computed Tomogra phy 01/29/2025 9:21 PM EST Narrative 01/29/2025 9:22 PM EST [place] [address] CT Scan Report Signed Patient: Sarita Puga MR#: [id number] 92 : 1965 Acct:[id number] Age/Sex: 59 / F ADM Date: 01/29/25 Loc: HO.ED Attending Dr: Ordering Physician: Brown Blair Date of Service: 01/29/25 Procedure(s): CT cervical spine wo IV con Accession Number(s): [id number] cc: Brown Blair; Name,Kiel BAILEY Report Number: [id number]: Total DLP = 478.00 mGy-cm Reason for [...] in OV> 01/29/252120 DD/ 20 TD/TT: 01/29/252120 Control Equipment Electrician: Procedure Note Donotuseinterpreter, Image - 01/29/[address] [address] [address] Scan Report Signed Patient: Sarita Puga MMR#: [id number] 92 : 1965Acct:[id number] Age/Sex: 59 / FADM Date: 01/29/25 Loc: HO.ED Attending Dr: Ordering Physician: Brown Blair Date of Service: 01/29/25 Procedure(s): CT cervical spine wo IV con Accession Number(s): [id number] cc: Brown Blair; Name,Kiel BAILEY Report Number: [id number]: Total DLP = 478.00 mGy-cm Reason for [...] in OV> 01/29/252120 DD/ 20 TD/TT: 01/29/252120 Control Equipment Electrician: [facility] External Provider IMG CT PROCEDURES Edited Result - Final * (ABNORMAL) CBC auto differential (01/29/2025 8:05 PM EST) Only the most recent of3 resultswithin the time period is included. White Blood Count 6.2 4.8 - 10.8 X10*3/uL [facility] Red Blood Count 4.46 4.20 - 5.50 X10*6/uL [facility] Hemoglobin 12.1 12.0 - 16.0 g/dl [facility] Hematocrit 37.3 37.0 - 47.0 % [facility] Mean Corpuscular Volume 83.6 80.0 - 98.0 fL [facility] Mean Corpuscular Hemoglobin 27.1 27.0 - 33.0 pg [facility] Mean Corpuscular HGB Conc 32.4 31.0 - 35.0 g/dl [facility] Red Cell Distribution Width 12.9 11.0 - 16.0 % [facility] Platelet Count 135(L) 160 - 400 X10*3/uL [facility] Mean Platelet Volume 11.9 9.4 - 12.3 fL [facility] Neutrophils Percent Auto 54.8 45 - 73 % [facility] Imm Gran Pct Auto 0.2 0.0 - 0.4 % [facility] Lymphocytes Percent Auto 36.1 20 - 40 % [facility] Monocytes Percent Auto 6.1 2 - 11 % [facility] Eosinophils Percent Auto 1.8 0 - 4 % [facility] Basophils Percent Auto 1.0 0 - 2 % [facility] NRBC Pct Auto 0.0 0.0 - 0.2 /100WBC [facility] Neutrophils Absolute Auto 3.4 2.0 - 8.3 x10*3/uL [facility] Imm Gran Abs Auto 0.01 0.00 - 0.03 X10*3/uL [facility] Lymphocytes Absolute Auto 2.2 1.2 - 4.9 X10*3/uL [facility] Monocytes Absolute Auto 0.4 0.1 - 1.2 X10*3/uL [facility] Eosinophils Absolute Auto 0.1 0.0 - 0.4 X10*3/uL [facility] Basophils Absolute Auto 0.1 0.0 - 0.2 X10*3/uL [facility] NRBC Abs Auto 0.000 0.0 - 0.012 X10*3/uL [facility] 01/29/2025 8:05 PM EST 01/29/2025 8:08 PM EST us Generic External Data Provider LAB BLOOD ORDERAB LES Final Result Performing Organization Address [facility] Co de Phone Number [facility] [address] [place] [phone] * Magnesium (01/29/2025 8:05 PM EST) Only the most recent of2 resultswithin the time period is included. Pathologist [facility] Magnesium 1.9 1.6 - 2.6 mg/dL [facility] 01/29/2025 8:05 PM EST 01/29/2025 8:08 PM EST Generic External Data Provider LAB BLOOD ORDERAB LES Final Result Performing Organization Address [facility] Co de Phone Number [facility] [address] [place] [phone] * Creatine Kinase, Total (01/29/2025 8:05 PM EST) Pathologist [facility] Creatine Kinase Total 41 26 - 140 U/L [facility] 01/29/2025 8:05 PM EST 01/29/2025 8:08 PM EST Generic External Data Provider LAB BLOOD ORDERAB LES Final Result Performing Organization Address [facility] de Phone Number [facility] [address] [place] [phone] * (ABNORMAL) Comprehensive Metabolic Panel (01/29/2025 8:05 PM EST) Only the most recent of2 resultswithin the time period is included. Pathologist [facility] Sodium 141 135 - 145 mmol/L [facility] Potassium 3.8 3.3 - 5.1 mmol/L [facility] Chloride 107 96 - 108 mmol/L [facility] Carbon Dioxide 26 22 - 29 mmol/L [facility] Anion Gap 12 12 - 20 [facility] Urea Nitrogen (BUN) 15 9 - 16 mg/dL [facility] Creatinine, Serum 0.79 0.5 - 1.4 mg/dL [facility] Creatinine Clr Calc Pharmacy 89.8 [facility] Comment:Provided height and weight: 160.02 cm,107.048 kg.eGFR (calculated from the MDRD study equation) and eCrCl(calculated from the Cockcroft-Gault equation) are based ondifferent parameters and may not yield comparable results.If eCrCl result is absurd, please check patient'sheight/weight. Estimated Glomerular Filt Rate >60 [facility] Comment:Chronic Kidney Disea se: Estimated GFR < 60 mL/min/1.86h0Iltzol Kidney Disease: Estimated GFR < 15 mL/min/1.73m2 Glucose 154(H) 60 - 115 mg/dL [facility] Calcium 9.1 8.4 - 10.2 mg/dL [facility] Bilirubin, Total 0.2 0.0 - 1.0 mg/dL [facility] Aspartate Amino Transferase 13 5 - 31 U/L [facility] Alanine Aminotransferase 21 0 - 31 U/L [facility] Total Protein 6.2(L) 6.5 - 8.0 g/dL [facility] Albumin Level 3.9 3.5 - 5.0 g/dL [facility] Alkaline Phosphatase 73 39 - 117 U/L [facility] 01/29/2025 8:05 PM EST 01/29/2025 8:08 PM EST us Generic External Data Provider LAB BLOOD ORDERAB LES Final Result [facility] [address] [place] [phone] * CT Abdomen Pelvis w/ Contrast (01/27/2025) Anatomical Region Laterality Modality Body, Pelvis, Abdomen Computed T omography us Historical Provider MD GARAY CT PROCEDURES Final R esult * (ABNORMAL) POCT Glucose (01/10/2025 11:48 AM EST) Glucose Blood, POC 270(A) 60 - 200 mg/dL Comment:[employer] Lot # [id number] Lot# Expiration Date [id number] Blood Capillary blood specimen / Unknown 01/10/2025 11:48 AM EST Kiel Name POINT OF CARE TEST ENTER/EDIT OR DERABLES Final Result * (ABNORMAL) POCT Hgb A1c (01/09/2025 1:16 PM EST) Pathologist [facility] Hemoglobin A1C 7.8(A) 4.0 - 5.7 % Blood 01/09/2025 1:16 PM EST Kiel Name POINT OF CARE TEST ENTER/EDIT OR DERABLES Final Result * Urinalysis with Reflex to Microscopic (01/08/2025 10:51 PM EST) Pathologist [facility] Color Urine Yellow [facility] Appearance Urine Clear [facility] PH 6.0 5.0 - 9.0 [facility] Glucose Urine UA Negative Negative mg/dL [facility] Urine Blood Negative Negative [facility] Specific Mineral - Urine 1.020 1.005 - 1.025 [facility] Urine Protein Negative Neg-Trace mg/dL [facility] Urine Ketones Negative Negative mg/dL [facility] Nitrite Urine Negative Negative [facility] Leukocyte Esterase Urine Negative Negative [facility] 01/08/2025 10:5 1 PM EST 01/08/2025 10:54 PM EST Generic External Data Provider LAB URINE ORDERAB LES Final Result [facility] [address] [place] [phone] * High Sensitivity Troponin I (01/08/2025 8:39 PM EST) Only the most recent of2 resultswithin the time period is included. TROPONIN I HIGH SENSITIVITY <2.7 <3.5 - 17.0 ng/L [facility] Comment:The [place] high sens itivity Troponin-I results should beused in conjunction with other diagnostic information suchas ECG, clinical observations and information, and patientsymptoms to aid in the diagnosis of ND. 01/08/2025 8:39 PM EST 01/08/2025 8:41 PM EST Generic External Data Provider LAB BLOOD ORDERAB LES Final Result Performing Organization Address [facility] de Phone Number [facility] [address] [place] [phone] * (ABNORMAL) Hepatic Function Panel (01/08/2025 6:13 PM EST) Only the most recent of2 resultswithin the time period is included. [facility] Bilirubin, Total 0.4 0.0 - 1.0 mg/dL [facility] Bilirubin, Direct 0.1 0.0 - 0.5 mg/dL [facility] Aspartate Amino Transferase 24 5 - 31 U/L [facility] Comment:Slight Hemolysis.Int erpret result with caution. Alanine Aminotransferase 44(H) 0 - 31 U/L [facility] Total Protein 6.8 6.5 - 8.0 g/dL [facility] Albumin Level 4.1 3.5 - 5.0 g/dL [facility] Alkaline Phosphatase 83 39 - 117 U/L [facility] 01/08/2025 6:13 PM EST 01/08/2025 6:16 PM EST Narrative [facility] - 01/08/2025 6:37 PM EST 2 attempts made us Generic External Data Provider LAB BLOOD ORDERAB LES Final Result Performing Organization Address [facility] Co de Phone Number [facility] [address] [place] [phone] * (ABNORMAL) Basic Metabolic Panel (01/08/2025 6:13 PM EST) Sodium 136 135 - 145 mmol/L [facility] Potassium 4.2 3.3 - 5.1 mmol/L [facility] Comment:Slight Hemolysis.Int erpret result with caution. Chloride 102 96 - 108 mmol/L [facility] Carbon Dioxide 23 22 - 29 mmol/L [facility] Anion Gap 15 12 - 20 [facility] Urea Nitrogen (BUN) 16 9 - 16 mg/dL [facility] Creatinine, Serum 0.46(L) 0.5 - 1.4 mg/dL [facility] Creatinine Clr Calc Pharmacy 154.4 [facility] Comment:Provided height and weight: 160.02 cm,107.048 kg.eGFR (calculated from the MDRD study equation) and eCrCl(calculated from the Cockcroft-Gault equation) are based ondifferent parameters and may not yield comparable results.If eCrCl result is absurd, please check patient'sheight/weight. Estimated Glomerular Filt Rate >60 [facility] Comment:Chronic Kidney Disea se: Estimated GFR < 60 mL/min/1.41s0Jhsfqm Kidney Disease: Estimated GFR < 15 mL/min/1.73m2 Glucose 194(H) 60 - 115 mg/dL [facility] Calcium 9.5 8.4 - 10.2 mg/dL [facility] 01/08/2025 6:13 PM EST 01/08/2025 6:16 PM EST Narrative [facility] - 01/08/2025 6:37 PM EST 2 attempts made us Generic External Data Provider LAB BLOOD ORDERAB LES Final Result [facility] [address], [place] [phone] * XR Shoulder 2+ Views Left (12/25/2024 9:51 PM EST) Only the most recent of2 resultswithin the time period is included. Anatomical Region Laterality Modality Upper Extremities, Shoulder Left Radi ographic Imaging 12/25/2024 9:51 PM EST Narrative 12/25/2024 9:53 PM EST [address] [address] XRay Report Signed Patient: Sarita Puga MR#: [id number] 92 : 1965 Acct:[id number] Age/Sex: 59 / F ADM Date: 12/25/24 Loc: HO.ED Attending Dr: Ordering Physician: Ignacia Lorenzo Date of Service: 12/25/24 Procedure(s): XR shoulder LT min 2V Accession Number(s): [id number] cc: Ignacia Lorenzo; Name,Kiel BAILEY Reason for Exam: pain, trauma? CLINICAL HISTORY: pain, trauma? 3 view left shoulder Comparison: CR/NE/SR - XR SHOULDER 2 OR MORE VIEWS [...] in OV> 12/25/242151 DD/ 50 TD/TT: 12/25/242150 Control Equipment Electrician: Procedure Note Sarmad, Image - 12/25/[address] [address] XRay Report Signed Patient: Sarita Puga MMR#: [id number] 92 : 1965Acct:[id number] Age/Sex: 59 / FADM Date: 12/25/24 Loc: HO.ED Attending Dr: Ordering Physician: Ignacia Lorenzo Date of Service: 12/25/24 Procedure(s): XR shoulder LT min 2V Accession Number(s): [id number] cc: Ignacia Lorenzo; Name,Kiel BAILEY Reason for Exam: pain, trauma? CLINICAL HISTORY: pain, trauma? 3 view left shoulder Comparison: CR/NE/SR - XR SHOULDER 2 OR MORE VIEWS [...] in OV> 12/25/242151 DD/ 50 TD/TT: 12/25/242150 Control Equipment Electrician: [facility] External Provider IMG XR PROCEDURES Final Result * XR Knee 3 Views Right (12/13/2024 12:39 PM EDT) Anatomical Region Laterality Modality Lower Extremities, Knee Right [facility] 12/13/2024 12:3 9 PM EDT Narrative 12/13/2024 12:58 PM EDT [address] [address] XRay Report Signed Patient: Sarita Puga MR#: [id number] 92 : 1965 Acct:[id number] Age/Sex: 59 / F ADM Date: 12/13/24 Loc: HO.ED Attending Dr: Ordering Physician: Aurora Beltrán Date of Service: 12/13/24 Procedure(s): XR knee RT 3V Accession Number(s): [id number] cc: Kiel Shaffer MD; Aurora Beltrán Reason [...] 12/13/24 1255 DD/ 1239 TD/TT: 12/13/24 1246 Control Equipment Electrician: SALINAS Procedure Note Donotuseinterpreter, Image - 12/13/2024 [place] [address] XRay Report Signed Patient: Sarita Puga [facility]#: [id number] 92 : 1965Acct:[id number] Age/Sex: 59 / FADM Date: 12/13/24 Loc: HO.ED Attending Dr: Ordering Physician: Aurora Beltrán Date of Service: 12/13/24 Procedure(s): XR knee RT 3V Accession Number(s): [id number] cc: Kiel Shaffer MD; Aurora Beltrán Reason [...] 12/13/24 1255 DD/ 1239 TD/TT: 12/13/24 1246 Control Equipment Electrician: SALINAS [facility] External Provider IMG XR PROCEDURES Edited Result - Final * XR Lumbar Spine 2-3 Views (12/13/2024 12:38 PM EDT) Anatomical Region Laterality Modality Spine, L-spine Radiographic Diana ging 12/13/2024 12:3 8 PM EDT Narrative 12/13/2024 12:56 PM EDT [place] [address] XRay Report Signed Patient: Sarita Puga MR#: [id number] 92 : 1965 Acct:[id number] Age/Sex: 59 / F ADM Date: 12/13/24 Loc: HO.ED Attending Dr: Ordering Physician: Lacy Saucedo MD Date of Service: 12/13/24 Procedure(s): XR lumbar spine 2-3V Accession Number(s): [id number] cc: Lacy Saucedo MD; Name,Kiel BAILEY Reason [...] 12/13/24 1253 DD/ 1238 TD/TT: 12/13/24 1246 Control Equipment Electrician: SALINAS Procedure Note Donotuseinterpreter, Image - 12/13/2024 [place] [address] XRay Report Signed Patient: Sarita Puga MMR#: [id number] 92 : 1965Acct:[id number] Age/Sex: 59 / FADM Date: 12/13/24 Loc: HO.ED Attending Dr: Ordering Physician: Lacy Saucedo MD Date of Service: 12/13/24 Procedure(s): XR lumbar spine 2-3V Accession Number(s): [id number] cc: Lacy Saucedo MD; Name,Kiel BAILEY Reason [...] 12/13/24 1253 DD/ 1238 TD/TT: 12/13/24 1246 Control Equipment Electrician: SALINAS [facility] External Provider IMG XR PROCEDURES Edited Result - Final * MR Wrist w/o Contrast Right (12/06/2024 8:31 PM EDT) Anatomical Region Laterality Modality Upper Extremities, Wrist Right Magneti c Resonance 12/06/2024 8:31 PM EDT Narrative 12/06/2024 8:33 PM EDT [address] [address] Magnetic Resonance Report Signed Patient: Sarita Puga MR#: [id number] 92 : 1965 Acct:[id number] Age/Sex: 59 / F ADM Date: 12/06/24 Loc: HO.MRI Attending Dr: Jose SEGURA Ordering Physician: Jose Hernandez Date of Service: 12/06/24 Procedure(s): MR wrist RT wo con Accession Number(s): [id number] cc: Jose Hernandez; Name,Kiel BAILEY Reason for [...] in OV> 12/06/242032 DD/ 30 TD/TT: 12/06/242030 Control Equipment Electrician: Procedure Note Donotuseinterpreter, Image - 12/06/2024 [place] [address] Magnetic Resonance Report Signed Patient: Sarita Puga [facility]#: [id number] 92 : 1965Acct:[id number] Age/Sex: 59 / FADM Date: 12/06/24 Loc: HO.MRI Attending Dr: Jose SEGURA Ordering Physician: Jose Hernandez Date of Service: 12/06/24 Procedure(s): MR wrist RT wo con Accession Number(s): [id number] cc: Jose Hernandez; Name,Kiel BAILEY Reason for [...] in OV> 12/06/242032 DD/ 30 TD/TT: 12/06/242030 Control Equipment Electrician: [facility] External Provider IMG MRI PROCEDURES Final Result * (ABNORMAL) Lipid Panel, Standard (11/30/2024 9:56 AM EDT) Triglycerides 122 <150 mg/dL [facility] Comment:Desirable Triglyceri de: less than 150 mg/dLBorderline High Triglyceride 150-199 mg/dLHigh Triglyceride: 200-499 mg/dLVery High Triglyceride: greater than or equal to 5OO mg/dL Cholesterol 151 <200 mg/dL [facility] Comment:Desirable Cholestero l: less than 200 mg/dLBorderline High Cholesterol: 200-239 mg/dLHigh Cholesterol: greater than 239 mg/dL LDL Cholesterol Calculated 91 <100 mg/dL [facility] Comment:Desirable LDL: less than 100 mg/dLNear Optimal/Above Optimal LDL: 110- 129 mg/dLBorderline High LDL: 130-159 mg/dLHigh LDL: 160-189 mg/dLVery High LDL: greater than or equal to 190 mg/dL HDL Cholesterol 36(L) >40 mg/dL [facility] Comment:Desirable HDL: great er than 40 mg/dL Note: This HDL assay may give artificially low results in patients with liver disease. 11/30/2024 9:56 AM EDT 11/30/2024 11:32 AM EDT us Kiel Name LAB BLOOD ORDERABLES Final Resul t [facility] [address] [place] [address] [phone] * POCT KEELEY-14 Urine Drug Screen [...] - 11/15/2024 11:43 AM EDT [employer] cup Lot#[id number] Exp. 11/27/25 Internal Pass Control us Kiel Name POINT OF CARE TEST ENTER/EDIT OR DERABLES Final Result * XR Hand 3+ Views Left (11/07/2024 12:00 PM EDT) Anatomical Region Laterality Modality Upper Extremities, Hand Left Radiogra phic Imaging 11/07/2024 12:0 0 PM EDT Narrative 11/07/2024 12:20 PM EDT [facility] [address] [place] [address] XRay Report Signed Patient: Sarita Puag MR#: [id number] 92 : 1965 Acct:[id number] Age/Sex: 59 / F ADM Date: 11/07/24 Loc: HO.HHCX Attending Dr: Lorenzo Chavez MD Ordering Physician: Lorenzo Chavez MD Date of Service: 11/07/24 Procedure(s): XR hand LT min 3V Accession Number(s): [id number] cc: Lorenzo Chavez MD Reason for Exam: [...] 11/07/24 1217 DD/ 1200 TD/TT: 11/07/24 1202 Control Equipment Electrician: Procedure Note Donotuseinterpreter, Image - 11/07/2024 [facility] [address] [place] [address] XRay Report Signed Patient: Sarita Puga MMR#: [id number] 92 : 1965Acct:[id number] Age/Sex: 59 / FADM Date: 11/07/24 Loc: HO.HHCX Attending Dr: Lorenzo Chavez MD Ordering Physician: Lorenzo Chavez MD Date of Service: 11/07/24 Procedure(s): XR hand LT min 3V Accession Number(s): [id number] cc: Lorenzo Chavez MD Reason for Exam: [...] 11/07/24 1217 DD/ 1200 TD/TT: 11/07/24 1202 Control Equipment Electrician: us Lorenzo Chavez MD IMG XR PROCEDURES Edited Result - Final * BI Mammogram Screening Tomosynthesis Bilateral (06/03/2023 8:45 AM EDT) Anatomical Region Laterality Modality Breast Bilateral Mammography 06/03/2023 8:45 AM EDT Narrative 06/30/2023 10:24 PM EDT [address] [place] [address] Mammography Report Signed Patient: Sarita Puga MR#: [id number] 92 : 1965 Acct:[id number] Age/Sex: 57 / F ADM Date: 06/03/23 Loc: [facility] Attending Dr: Kiel Shaffer MD Ordering Physician: Kiel Shaffer MD Results: 1Negative Date of Service: 06/03/23 Follow Up: 1 Year From Orig ina Mammogram Procedure(s): MM tomosynthesis screening BI Accession Number(s): [id number] cc: Kiel Shaffer MD EXAMINATION: MM SCREENING [...] in OV> 06/30/23 2220 DD/ 0845 TD/TT: Control Equipment Electrician: Procedure Note Donotuseinterpreter, Image - [facility]/30/2023 [facility] [address] [place], [place] [address] Mammography Report Signed Patient: Sarita Puga MMR#: [id number] : 1965Acct:[id number] Age/Sex: 57 / FADM Date: 06/03/23 Loc: [facility] Attending Dr: Kiel Shaffer MD Ordering Physician: Kiel Shaffer MDResults: 1Negative Date of Service: 06/03/23Follow Up: 1 Year From Orig ina Mammogram Procedure(s): MM tomosynthesis screening BI Accession Number(s): [id number] cc: Kiel Shaffer MD EXAMINATION: MM SCREENING [...] in OV> 06/30/23 2220 DD/ 0845 TD/TT: Control Equipment Electrician: us Kiel Shaffer MD IM BI PROCEDURES Edited Result - Final * Albumin, Random Urine W/Creatinine (05/26/2023 8:27 AM EDT) Creatinine, Urine 185.88 mg/dL [facility] Microalbumin Urine 23.0 mg/L [facility] Microalbum Creatinine Ratio Ur 12.3 <30 ug/mg cr [facility] Comment:Albumin/Creatinine R atio Reference Ranges: Normal: < 30 ug/mg creatinine Microalbuminuria: 30 - 300 ug/mg creatinineClinical Albuminuria: > 300 ug/mg creatinine Urine (Urine, Random) 05/26/2023 8:27 AM EDT 05/26/2023 11:19 AM EDT us Kiel Shaffer MD LAB URINE ORDERABLES Final Resul t [facility] [address] [place] [address] [phone] * Colonoscopy (07/01/2022 4:37 PM EDT) Colonoscopy Normal Normal Narrative Emely Devine - 07/01/2022 4:37 PM EDT Recommended 5 year follow up ([facility]) [facility] Provider HEALTH MAINTENANCE Final Result [...] 02/04/2025 Patient has chronic kidney disease 02/04/2025 Insurance [employer] C[employer] [address] [place], [place] Care 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
--- OUTSIDE RECORDS SUMMARY | 2025-02-04 18:58 | XMS_ITS | Encounter Summary ---
Author Organization [employer] Address [address] [place] [address] 7t [place] [address] Care Team Providers Care Cotton Cleaner Name Role Phone Name, Kiel BAILEY Primary Care Provider Katlyn Rodriguez PharmD Unavailable Nehal Ann RN Unavailable Unavailable Ania Spencer Unavailable Opal Carrasquillo Unavailable [phone] Catrachito Spencerda Unavailable Tj, Ania Unavailable Tj, Ania Unavailable Encounter Details Date Type Department Care Team (Late st Contact Info) Description 10/29/2022 Abstract [facility] [address] [place], [place] [phone] Name, MD Kiel [address] [place], [place] [phone] Social History Tobacco Use Types Packs/Day Years [...] Description 02/06/2025 2:30 PM EST Office Visit [address] [address] Chris Mary JoQAMAR [address] [place] [address] 02/08/2025 9:30 AM EST Medication Management [address] [address] PuiaKatlyn, PharmD [address] [place] [address] 03/13/2025 11:30 AM EST Telemedicine [address] [address] NameKiel MD [address] [place] [address] 04/10/2025 10:45 AM EST Office Visit [address] [address] NameKiel MD [address] [place] [address] 05/31/2025 11:00 AM EDT Telemedicine [address] [address] Opal Steiner RN documented as of this encounter Goals Goal Patient Goal Type Associated Problems Recent Progress Patient-Stated? Author Hemoglobin A1c < 7 Result Component 7.8( 1:16 PM EST) No PuiaReidKatlyn, PharmD Record your blood sugar as directed Result Component No Puia Katlyn, PharmD documented as of this encounter Procedures Procedure Name Priority Date/Time Associated Diagnosis Comments DIABETES EYE EXAM Routine 05/26/2022 documented in this encounter Results * Diabetes Eye Exam (05/26/2022) [facility] Eye Exam Normal Normal Kiel Shaffer MD HEALTH MAINTENANCE Final Result documented in this encounter Visit Diagnoses Not on filedocumented in this encounter Additional Health Concerns Assessment Noted Time PHQ-9 Depression Total Score: 7 07/15/19 23 2:39 PM EDT documented as of this encounter Care Teams Cotton Cleaner Relationship Specialty Start Date End Date Name, MD Kiel [address] [place] [address] PCP - General Family Medicine 07/15/15 Katlyn Rodriguez, AngieD [address] [place], [place] [phone] Pharmacist Internal Medicine 10/08/22 Nehal Ann, MARINA [address] [place] [address] Registered Nurse Family Medicine 08/20/24 10/29/24 Ania Spencer 08/20/24 11/26/24 Opal Carrasquillo Registered Nurse 10/29/24 11/26/24 Ania Spencer 12/14/24 12/26/24 Ania Spencer 01/09/25 01/25/25 Ania Spencer 01/30/25 Marta Ovalle Oyster BuyerOcc Med Physician 05/25/23 documented as of this encounter
--- OUTSIDE RECORDS SUMMARY | 2025-02-04 18:58 | XMS_ITS | Encounter Summary ---
Author Organization [facility] Prior to 12/23/2023 Address [address] [place] [address] Care Team Providers Care Plate Glass Installer Helper Name Role Phone Name, Kiel BAILEY Primary Care Provider Unavailabl e Name, Kiel BAILEY Primary Care Provider Unavailabl e Philly Vela DO Primary Care Pro vider Unavailable Name, Kiel BAILEY Primary Care Provider Unavailabl e Encounter Details Date Type Department Care Team Description 12/03/2014 Hospital Medical Records [address] [place] [address] Rahsad Messina MD Social History Tobacco Use Types [...] on filedocumented in this encounter Care Teams Plate Glass Installer Helper Relationship Specialty Start Date End Date Kiel Shaffer MD PCP - General 05/26/09 04/27/15 Kiel Shaffer MD PCP - General Internal Medicine 04/28/15 05/05/15 Philly Vela DO PCP - General Internal Medicine 05/06/15 08/27/15 Kiel Shaffer MD PCP - General Internal Medicine 08/28/15 documented as of this encounter
--- OUTSIDE RECORDS SUMMARY | 2025-02-04 18:58 | XMS_ITS | Encounter Summary ---
Author Organization [employer] [employer] [facility] Prior to 12/23/2023 Address [address] [place] [address] Care Team Providers Care Janitorial Tech Name Role Phone Name, Kiel BAILEY Primary Care Provider Unavailabl e Name, Kiel BAILEY Primary Care Provider Unavailabl e Philly Vela DO Primary Care Pro vider Unavailable Name, Kiel BAILEY Primary Care Provider Unavailabl e Encounter Details Date Type Department Care Team Description 11/20/2010 Color Printer Operator Report Medical Records [address] [place] [address] Shon Blanca Social History Tobacco Use Types [...] on filedocumented in this encounter Care Teams Janitorial Tech Relationship Specialty Start Date End Date Kiel Shaffer MD PCP - General 05/26/09 04/27/15 Kiel Shaffer MD PCP - General Internal Medicine 04/28/15 05/05/15 Philly Vela DO PCP - General Internal Medicine 05/06/15 08/27/15 Kiel Shaffer MD PCP - General Internal Medicine 08/28/15 documented as of this encounter
--- OUTSIDE RECORDS SUMMARY | 2025-02-04 18:58 | XMS_ITS | Encounter Summary ---
Author Organization [facility] [employer] [facility] Prior to 12/23/2023 Address [address] [place] [address] Care Team Providers Care Instrument Person Name Role Phone Name, Kiel BAILEY Primary Care Provider Unavailabl e Name, Kiel BAILEY Primary Care Provider Unavailabl e Philly Vela DO Primary Care Pro vider Unavailable Name, Kiel BAILEY Primary Care Provider Unavailabl e Encounter Details Date Type Department Care Team Description 01/04/2011 Mud Cleaner Operator Report Medical Records [address] [place] [address] Shon Blanca Social History Tobacco Use Types [...] on filedocumented in this encounter Care Teams Instrument Person Relationship Specialty Start Date End Date Kiel Shaffer MD PCP - General 05/26/09 04/27/15 Kiel Shaffer MD PCP - General Internal Medicine 04/28/15 05/05/15 Philly Vela DO PCP - General Internal Medicine 05/06/15 08/27/15 Kiel Shaffer MD PCP - General Internal Medicine 08/28/15 documented as of this encounter
--- OUTSIDE RECORDS SUMMARY | 2025-02-04 18:58 | XMS_ITS | Encounter Summary ---
Author Organization [employer] [facility] Prior to 12/23/2023 Address [address] [place] [address] Care Team Providers Care Parts Driver Name Role Phone Name, Kiel BAILEY Primary Care Provider Unavailabl e Name, Kiel BAILEY Primary Care Provider Unavailabl e Philly Vela DO Primary Care Pro vider Unavailable Name, Kiel BAILEY Primary Care Provider Unavailabl e Encounter Details Date Type Department Care Team Description 01/14/2011 Hospital Medical Records [address] [place] [address] Ania Reid Social History Tobacco Use Types [...] on filedocumented in this encounter Care Teams Parts Driver Relationship Specialty Start Date End Date Kiel Shaffer MD PCP - General 05/26/09 04/27/15 Kiel Shaffer MD PCP - General Internal Medicine 04/28/15 05/05/15 Philly Vela DO PCP - General Internal Medicine 05/06/15 08/27/15 Kiel Shaffer MD PCP - General Internal Medicine 08/28/15 documented as of this encounter
--- OUTSIDE RECORDS SUMMARY | 2025-02-04 18:59 | XMS_ITS | Encounter Summary ---
Author Organization [facility] Prior to 12/23/2023 Address [address] [place] [address] Care Team Providers Care Deck Specialist Name Role Phone Name, Kiel BAILEY Primary Care Provider Unavailabl e Name, Kiel BAILEY Primary Care Provider Unavailabl e Philly Vela DO Primary Care Pro vider Unavailable Name, Kiel BAILEY Primary Care Provider Unavailabl e Reason for Visit * Reason Onset Date Comments Faxed Order 11/27/2013 Encounter Details Date Type Department Care Team Description 11/27/2013 Telephone Adult Medicine [address] [address] Name, MD Kiel Faxed Order Social History [...] - 11/27/2013 10:03 AM EDT Please review [employer] re-evaluation, sign and fax back to Soren at [phone]. documented in this encounter Plan of Treatment Not on file documented as of this encounter Visit Diagnoses Not on filedocumented in this encounter Care Teams Deck Specialist Relationship Specialty Start Date End Date Name, MD Kiel PCP - General 05/26/09 04/27/15 Name, MD Kiel PCP - General Internal Medicine 04/28/15 05/05/15 Philly Vela DO PCP - General Internal Medicine 05/06/15 08/27/15 Name, MD Kiel PCP - General Internal Medicine 08/28/15 documented as of this encounter
--- OUTSIDE RECORDS SUMMARY | 2025-02-04 18:59 | XMS_ITS | Encounter Summary ---
Author Organization [facility] Address [address] [place] [address] Phone Care Team Providers Care Automatic Head Sawyer Name Role Phone Unavailable Primary Care Provider Unavailabl e Encounter Details Date Type Department Care Team (Late st Contact Info) Description 01/04/2020 Procedure Pass [facility] [address] [place] [address] [place], [place] [phone] Social History Tobacco Use Types Packs/Day Years [...] is not the complete legal health record.[facility]
--- OUTSIDE RECORDS SUMMARY | 2025-02-04 18:59 | XMS_ITS | Encounter Summary ---
Author Organization [employer] Address [address] [facility] 7t [place] [address] Care Team Providers Care Manager Area Name Role Phone Name, Kiel BAILEY Primary Care Provider [phone] Katlyn Rodriguez PharmD Unavailable [phone] Ania Spencer Unavailable Reason for Visit * Reason Comments Care Coordination CP Care Coordination Chart Review Encounter Details Date Type Department Care Team (Latest Contact Info) Description 01/30/2025 Patient Outreach [facility] [address] [place] [address] Name, MD Kiel [address] [place] [address] Care Coordination (CP Care Coordination Chart Review) Social History Tobacco Use Types Packs/Day Years [...] Progress Notes * Ania Spencer - 01/30/2025 10:32 AM EST Community Partners Coordinator, Ania Spencer, performed chart review, as patient has experienced anADT event and has been identified as being engaged with a [facility] Program. Patient is assigned to CP Program BHCP to [employer] Em Jaquez. Patient visited [facility] ED on 01/30/25. Last appointment in PCP office on 01/10/25 . Next appointment scheduled for 03/13/25. documented in this encounter Plan of Treatment Upcoming Encounters Date Type Department Care Team (Late st Contact Info) Description 02/06/2025 2:30 PM EST Office Visit [facility] MEDICINE [address] [place] [address] Mary Jo Perez FNP [address] [place] [address] 02/08/2025 9:30 AM EST Medication Management [facility] [address] [place] [address] Katlyn Rodriguez, PharmD [address] [place] [address] 03/13/2025 11:30 AM EST Telemedicine [address] [address] Name, MD Kiel [address] [place] [address] 04/10/2025 10:45 AM EST Office Visit [address] [address] Name, MD Kiel [address] [place] [address] 05/31/2025 11:00 AM EDT Telemedicine [address] [address] Opal Steiner RN documented as of this [...] Patient has chronic kidney disease No Colon Alan, Rosario Patient has chronic kidney disease Care Plan Patient has chronic kidney disease No Colon Alan Rosario Weekly blood pressure task Care Plan Weekly blood pressure task No Toro Leny Weekly blood pressure task Care Plan [...] Care Plan Weekly blood pressure task No ToroFreedomLeny Patient has chronic kidney disease Care Plan Patient has chronic kidney disease No Toro Leny Patient has chronic kidney disease Care Plan Patient has chronic kidney disease No ToroFreedomLeny Weekly blood pressure task Care Plan Weekly blood pressure task No Noni Pierson RN Weekly blood pressure task Care Plan Weekly blood pressure task No Noni Pierson, RN Patient has chronic kidney disease Care Plan Patient has chronic kidney disease No Noni Pierson RN Patient has chronic kidney disease Care Plan Patient has chronic kidney disease Noni Diallo, RN Weekly blood pressure task Care Plan [...] 01/30/2025 Patient has chronic kidney disease 01/30/2025 Assessment Noted Time PHQ-9 Depression Total Score: 7 09/05/19 25 11:46 AM EDT documented as of this encounter Care Teams Manager Area Relationship Specialty Start Date End Date Name, MD Kiel [address] [place] [address] PCP - General Family Medicine 07/15/15 Katlyn Rodriguez, PharmD [address] [place] [address] Pharmacist Internal Medicine 10/08/22 Ania Spencer 01/30/25 Marta Ovalle Weaving InstructorTicket Printer 05/25/23 documented as of this encounter
--- OUTSIDE RECORDS SUMMARY | 2025-02-04 18:59 | XMS_ITS | Encounter Summary ---
Author Organization [employer] Address [address] [facility] 7t [place] [address] Care Team Providers Care Load Dispatcher Name Role Phone Name, Kiel BAILEY Primary Care Provider [phone] Katlyn Rodriguez PharmD Unavailable [phone] Ania Specner Unavailable Reason for Visit * Reason Onset Date Comments Durable Medical Equipment 01/31/2025 Encounter Details Date Type Department Care Team ([facility] st Contact Info) Description 01/31/[address] [facility] MEDICINE [address] [place] [address] Name, MD Kiel [address] [place], [place] [phone] Durable Medical Equipment Social History Tobacco Use [...] * Telephone Encounter - Rosario Phillips - 01/31/2025 11:05 AM EST Tc from [facility] requesting an new scrip for DME - Shower bar - hand help shower head - Wheelchair To be send to [facility] documented in this encounter Plan of Treatment Upcoming Encounters Date Type Department Care Team (Late st Contact Info) Description 02/06/2025 2:30 PM EST Office Visit [facility] MEDICINE [address] [place] [address] Mary Jo Perez FNP [address] [place] [address] 02/08/2025 9:30 AM EST Medication Management [address] [address] Katlyn Rodriguez, AngieD [address] [place] [address] 03/13/2025 11:30 AM EST Telemedicine [address] [address] Name, [place] [address] 04/10/2025 10:45 AM EST Office Visit [address] [address] Name, MD Kiel [address] [place] [address] 05/31/2025 11:00 AM EDT Telemedicine [address] [address] Opal Steiner RN documented as of this [...] Plan Weekly blood pressure task No Noni Piersno, RN Weekly blood pressure task Care Plan Weekly blood pressure task No Noni Pierson, RN Patient has chronic kidney disease Care Plan Patient has chronic kidney disease No Noni Pierson, RN Patient has chronic [...] Care Plan Weekly blood pressure task No ToroKatarzyna ortegaa Weekly blood pressure task [...] has chronic kidney disease No Noni Pierson, RN Weekly blood pressure [...] chronic kidney disease No Colon Alan Rosario documented as of this encounter Visit Diagnoses [...] documented as of this encounter Care Teams Load Dispatcher Relationship Specialty Start Date End Date Name, MD Kiel [address] [place] [address] PCP - General Family Medicine 07/15/15 Katlyn Rodriguez PharmD [address] [place] [address] Pharmacist Internal Medicine 10/08/22 Ania Spencer 01/30/25 Marta Ovalle Tunnel Kiln RepairerManager Agricultural 05/25/23 documented as of this encounter
--- OUTSIDE RECORDS SUMMARY | 2025-02-04 18:59 | XMS_ITS | Encounter Summary ---
Author Organization [employer] Address [address] [facility] 7t [place] [address] Care Team Providers Care Bioassayist Name Role Phone Name, Kiel BAILEY Primary Care Provider Katlyn Rodriguez PharmD Unavailable [phone] Ania Spencer Unavailable Encounter Details Date Type Department Care Team (Late st Contact Info) Description 01/30/[address] [facility] MEDICINE [address] [place] [address] Name, MD Kiel [address] [place] [address] Social History Tobacco Use Types Packs/Day Years [...] 02/06/2025 2:30 PM EST Office Visit [address] [address] Mary Jo Perez FNP [address] [place] [address] 02/08/2025 9:30 AM EST Medication Management [address] [address] Katlyn Rodriguez, PharmD [address] [place] [address] 03/13/2025 11:30 AM EST Telemedicine [address] [address] Name, MD Kiel [address] [place] [address] 04/10/2025 10:45 AM EST Office Visit [address] [address] NameKiel MD [address] [place] [address] 05/31/2025 11:[address] [facility] [address] [place] [address] Opal Steiner, MARINA documented as of this [...] documented as of this encounter Care Teams Bioassayist Relationship Specialty Start Date End Date Name, MD Kiel [address] [place] [address] PCP - General Family Medicine 07/15/15 Katlyn Rodriguez PharmD [address] [place] [address] Pharmacist Internal Medicine 10/08/22 Ania Spencer 01/30/25 Marta Ovalle Customer Solutions SupervisorMain Galley Scullion 05/25/23 documented as of this encounter
--- OUTSIDE RECORDS SUMMARY | 2025-02-04 18:59 | XMS_ITS | Encounter Summary ---
Author Organization [employer] Address [address] [place] [address] 7t [place] [address] Care Team Providers Care Manager Nursing Home Name Role Phone Name, Kiel BAILEY Primary Care Provider [phone] Katlyn Rodriguez PharmD Unavailable [phone] Nehal Ann RN Unavailable Unavailable Ania Spencer Unavailable Opal Carrasquillo Unavailable [phone] Tj, Ania Unavailable Tj, Ania Unavailable Tj, Ania Unavailable Reason for Visit * Reason Onset Date Comments Durable Medical Equipment 01/24/2023 Encounter Details Date Type Department Care Team (Late st Contact Info) Description 01/24/2023 Telephone [facility] MEDICINE [address] [place], [place] [phone] Name, MD Kiel [address] [place], [place] [phone] Durable Medical Equipment Social History Tobacco Use [...] to errol. Any questions, contact pt at [phone] documented in this encounter Plan of Treatment Upcoming Encounters Date Type Department Care Team (Late st Contact Info) Description 02/06/2025 2:30 PM EST Office Visit [facility] MEDICINE [address] [place] [address] Mary Jo Perez FNP [address] [place] [address] 02/08/2025 9:30 AM EST Medication Management [address] [address] Katlyn Rodriguez, AngieD [address] [place] [address] 03/13/2025 11:30 AM EST Telemedicine [facility] [place] [facility] [place] [address] Name, MD Kiel J[facility] [place] [address] 04/10/2025 10:45 AM EST Office Visit [facility] Jai [facility] [place] [address] Name, MD Kiel Jai [facility] [place] [address] 05/31/2025 11:00 AM EDT Telemedicine [facility] [place] [address] Opal Steiner RN documented as of this [...] as of this encounter Care Teams Manager Nursing Home Relationship Specialty Start Date End Date Name, [place] [address] PCP - General Family Medicine 07/15/15 Puia, Katlyn, PharmD [address] [place] [address] Pharmacist Internal Medicine 10/08/22 Nehal Ann RN [address] [place] [address] Registered Nurse Family Medicine 08/20/24 10/29/24 Ania Spencer 08/20/24 11/26/24 Opal Carrasquillo Registered Nurse 10/29/24 11/26/24 Ania Spencer 12/14/24 12/26/24 Ania Spencer 01/09/25 01/25/25 Ania Spencer 01/30/25 Marta Ovalle Shift SuperintendentResource Conservation Specialist 05/25/23 documented as of this encounter
--- OUTSIDE RECORDS SUMMARY | 2025-02-04 18:59 | XMS_ITS | Encounter Summary ---
Author Organization [employer] [employer] [facility] Prior to 12/23/2023 Address [address] [place] [address] Care Team Providers Care Gluing Machine Operator Name Role Phone Name, Kiel BAILEY Primary Care Provider Unavailabl e Name, Kiel BAILEY Primary Care Provider Unavailabl e Philly Vela DO Primary Care Pro vider Unavailable Name, Kiel BAILEY Primary Care Provider Unavailabl e Encounter Details Date Type Department Care Team Description 07/31/2013 Switch Repairer Report Medical Records [address] [place] [address] Quinton Luther Social History Tobacco Use Types [...] on filedocumented in this encounter Care Teams Gluing Machine Operator Relationship Specialty Start Date End Date Kiel Shaffer MD PCP - General 05/26/09 04/27/15 Kiel Shaffer MD PCP - General Internal Medicine 04/28/15 05/05/15 Philly Vela DO PCP - General Internal Medicine 05/06/15 08/27/15 Kiel Shaffer MD PCP - General Internal Medicine 08/28/15 documented as of this encounter
--- OUTSIDE RECORDS SUMMARY | 2025-02-04 18:59 | XMS_ITS | Encounter Summary ---
Author Organization [facility] Prior to 12/23/2023 Address [address] [place] [address] Care Team Providers Care Agriculture Consultant Name Role Phone Name, Kiel BAILEY Primary Care Provider Unavailabl e Name, Kiel BAILEY Primary Care Provider Unavailabl e Philly Vela DO Primary Care Pro vider Unavailable Name, Kiel BAILEY Primary Care Provider Unavailabl e Encounter Details Date Type Department Care Team Description 09/02/2010 Marketing Project Lead Report Medical Records [address] [place] [address] Shon Blanca Social History Tobacco Use Types [...] on filedocumented in this encounter Care Teams Agriculture Consultant Relationship Specialty Start Date End Date Kiel Shaffer MD PCP - General 05/26/09 04/27/15 Kiel Shaffer MD PCP - General Internal Medicine 04/28/15 05/05/15 Philly Vela DO PCP - General Internal Medicine 05/06/15 08/27/15 Kiel Shaffer MD PCP - General Internal Medicine 08/28/15 documented as of this encounter
--- OUTSIDE RECORDS SUMMARY | 2025-02-04 18:59 | XMS_ITS | Encounter Summary ---
Author Organization [facility] Prior to 12/23/2023 Address [address] [place] [address] Care Team Providers Care Early Learning Teacher Name Role Phone Name, Kiel BAILEY Primary Care Provider Unavailabl e Name, Kiel BAILEY Primary Care Provider Unavailabl e Philly Vela DO Primary Care Pro vider Unavailable Name, Kiel BAILEY Primary Care Provider Unavailabl e Encounter Details Date Type Department Care Team Description 08/20/2010 Electrician Second Report Medical Records [address] [place] [address] Shon Blanca Social History Tobacco Use Types [...] on filedocumented in this encounter Care Teams Early Learning Teacher Relationship Specialty Start Date End Date Kiel Shaffer MD PCP - General 05/26/09 04/27/15 Kiel Shaffer MD PCP - General Internal Medicine 04/28/15 05/05/15 Philly Vela DO PCP - General Internal Medicine 05/06/15 08/27/15 Kiel Shaffer MD PCP - General Internal Medicine 08/28/15 documented as of this encounter
--- OUTSIDE RECORDS SUMMARY | 2025-02-04 18:59 | XMS_ITS | Encounter Summary ---
Author Organization [facility] Prior to 12/23/2023 Address [address] [place] [address] Care Team Providers Care Streetcar Operator Name Role Phone Name, Kiel BAILEY Primary Care Provider Unavailabl e Name, Kiel BAILEY Primary Care Provider Unavailabl e Philly Vela DO Primary Care Pro vider Unavailable Name, Kiel BAILEY Primary Care Provider Unavailabl e Encounter Details Date Type Department Care Team Description 09/16/2010 Career Based Intervention Coordinator Report Medical Records [address] [place] [address] Shon Blanca Social History Tobacco Use Types [...] on filedocumented in this encounter Care Teams Streetcar Operator Relationship Specialty Start Date End Date Kiel Shaffer MD PCP - General 05/26/09 04/27/15 Kiel Shaffer MD PCP - General Internal Medicine 04/28/15 05/05/15 Philly Vela DO PCP - General Internal Medicine 05/06/15 08/27/15 Kiel Shaffer MD PCP - General Internal Medicine 08/28/15 documented as of this encounter
--- OUTSIDE RECORDS SUMMARY | 2025-02-04 18:59 | XMS_ITS | Encounter Summary ---
Author Organization [facility] Prior to 12/23/2023 Address [address] [place] [address] Care Team Providers Care Blood Donor Unit Assistant Name Role Phone Name, Kiel BAILEY Primary Care Provider Unavailabl e Name, Kiel BAILEY Primary Care Provider Unavailabl e Philly Vela DO Primary Care Pro vider Unavailable Name, Kiel BAILEY Primary Care Provider Unavailabl e Encounter Details Date Type Department Care Team Description 11/06/2010 Chief Passenger Ship Steward/Stewardess Report Medical Records [address] [place] [address] Quinton Luther Social History Tobacco Use Types [...] on filedocumented in this encounter Care Teams Blood Donor Unit Assistant Relationship Specialty Start Date End Date Kiel Shaffer MD PCP - General 05/26/09 04/27/15 Kiel Shaffer MD PCP - General Internal Medicine 04/28/15 05/05/15 Philly Vela DO PCP - General Internal Medicine 05/06/15 08/27/15 Kiel Shaffer MD PCP - General Internal Medicine 08/28/15 documented as of this encounter
--- OUTSIDE RECORDS SUMMARY | 2025-02-04 18:59 | XMS_ITS | Encounter Summary ---
Author Organization [employer] Address [address] [place] [address] 7[address] [place] [address] Care Team Providers Care Territory Representative Name Role Phone Name, Kiel BAILEY Primary Care Provider [phone] Katlyn Rodriguez PharmD Unavailable Nehal Ann RN Unavailable Unavailable Ania Spencer Unavailable Opal Carrasquillo Unavailable Tj, Ania Unavailable Tj, Ania Unavailable Tj, Ania Unavailable Reason for Visit * Reason Onset Date Comments Durable Medical Equipment 12/06/2022 Encounter Details Date Type Department Care Team (Late st Contact Info) Description 12/06/[address] [facility] MEDICINE [address] [place], [place] [phone] Name, MD Kiel [address] [place], [place] [phone] Durable Medical Equipment Social History Tobacco Use [...] to message above. Please contact pt at [phone] (Scottish) * Telephone Encounter - Jean-Paul Finch - 12/06/2022 3:29 PM EDT Tc from pt requesting status on some bed absorbant pads to not stain bed. Please contact pt at [phone] Scottish Speaker documented in this encounter Plan of Treatment Upcoming Encounters Date Type Department Care Team (Late st Contact Info) Description 02/06/2025 2:30 PM EST Office Visit [address] [address] Mary Jo Perez FNP [address] [place] [address] 02/08/2025 9:30 AM EST Medication Management [address] [address] Puia, Katlyn, PharmD [address] [place] [address] 03/13/2025 11:30 AM EST Telemedicine [address] [address] Kiel Shaffer MD [address] [place] [address] 04/10/2025 10:45 AM EST Office Visit [address] [address] Kiel Shaffer MD [address] [place] [address] 05/31/2025 11:00 AM EDT Telemedicine [address] [address] Opal Steiner RN documented as of this [...] documented as of this encounter Care Teams Territory Representative Relationship Specialty Start Date End Date Kiel Shaffer MD [address] [place] [address] PCP - General Family Medicine 07/15/15 Katlyn Rodriguez PharmD [address] [place] [address] Pharmacist Internal Medicine 10/08/22 Nehal Ann, MARINA [address] [place] [address] Registered Nurse Family Medicine 08/20/24 10/29/24 Ania Spencer 08/20/24 11/26/24 Opal Carrasquillo Registered Nurse 10/29/24 11/26/24 Ania Sepncer 12/14/24 12/26/24 Ania Spencer 01/09/25 01/25/25 Ania Spencer 01/30/25 Marta Ovalle Wig ComberPolisher Sand 05/25/23 documented as of this encounter
--- OUTSIDE RECORDS SUMMARY | 2025-02-04 18:59 | XMS_ITS ---
Author Organization [employer] Address [address] [place] [address] 7t [place] [address] Care Team Providers Care Research Phlebotomist Name Role Phone Name, Kiel BAILEY Primary Care Provider [phone] Katlyn Rodriguez PharmD Unavailable [phone] Ania Spencer Unavailable CHW Complex Status:Outreach In Progress (Enrolling) Start date:01/30/2025 Enrollment reason:ADT Feed Overview CP Assigned Patient- Pt went to [facility] ED on 01/30/25. Case Team Name Relationship Phone Ania Spencer(Responsible Staff) [phone] Continued Care and Services Coordination
--- OUTSIDE RECORDS SUMMARY | 2025-02-04 18:59 | XMS_ITS | Encounter Summary ---
Author Organization [employer] Address [address] [facility] 7t [place] [address] Care Team Providers Care Bandsaw Operator Name Role Phone Name, Kiel BAILEY Primary Care Provider [phone] Katlyn Rodriguez PharmD Unavailable [phone] Ania Spencer Unavailable Reason for Visit * Reason Comments Med Refill Encounter Details Date Type Department Care Team ([facility] st Contact Info) Description 02/01/2025 Refill [facility] [address] [place] [address] Victorino Graves MD [address] [place] [address] Social History Tobacco Use Types Packs/Day Years [...] 02/06/2025 2:30 PM EST Office Visit [address] [address] Mary Jo Perez FNP [address] [place] [address] 02/08/2025 9:30 AM EST Medication Management [address] [address] Katlyn Rodriguez, PharmD [address] [place] [address] 03/13/2025 11:30 AM EST Telemedicine [address] [address] Kile Shaffer MD [address] [place] [address] 04/10/2025 10:45 AM EST Office Visit [address] [address] Kiel Shaffer MD [address] [place] [address] 05/31/2025 11:00 AM EDT Telemedicine [facility] MEDICINE [address] [place] [address] Opal Steiner, RN documented as of this [...] Patient has chronic kidney disease No Renetta Poewr RN Weekly blood pressure task Care Plan [...] chronic kidney disease No Flora Christianson, RN Weekly blood pressure task Care Plan Weekly blood pressure task No Colon Rosario Phillips Weekly blood pressure task Care Plan Weekly blood pressure task No Colon Rosairo Phillips Patient has chronic kidney disease Care Plan Patient has chronic kidney disease No Colon Alan Rosario Patient has chronic kidney disease Care Plan Patient has chronic kidney disease No Rosario Vu Weekly blood pressure task Care Plan Weekly blood pressure task AlenevaKiel Shaffer MD Weekly blood pressure task Care Plan Weekly blood pressure task AlenevaKiel Shaffer MD Patient has chronic kidney disease Care Plan Patient has chronic kidney disease AlenevaKiel Shaffer MD Patient has chronic kidney disease Care Plan Patient has chronic kidney disease AlenevaKiel Shaffer MD documented as of this encounter [...] documented as of this encounter Care Teams Bandsaw Operator Relationship Specialty Start Date End Date Name, MD Kiel [address] [place] [address] PCP - General Family Medicine 07/15/15 Katlyn Rodriguez PharmD [address] [place] [address] Pharmacist Internal Medicine 10/08/22 Ania Spencer 01/30/25 Marta Ovalle Child SpecialistRailroad Car Cleaner 05/25/23 documented as of this encounter
--- OUTSIDE RECORDS SUMMARY | 2025-02-04 18:59 | XMS_ITS | Encounter Summary ---
Author Organization [facility] Prior to 12/23/2023 Address [address] [place] [address] Care Team Providers Care Cut Out Marker Name Role Phone Name, Kiel BAILEY Primary Care Provider Unavailabl e Name, Kiel BAILEY Primary Care Provider Unavailabl e Philly Vela DO Primary Care Pro vider Unavailable Name, Kiel BAILEY Primary Care Provider Unavailabl e Encounter Details Date Type Department Care Team Description 12/17/2013 [facility] Medical Records [address] [place] [address] Social History Tobacco Use Types Packs/Day Years [...] on filedocumented in this encounter Care Teams Cut Out Marker Relationship Specialty Start Date End Date Kiel Shaffer MD PCP - General 05/26/09 04/27/15 Kiel Shaffer MD PCP - General Internal Medicine 04/28/15 05/05/15 Philly Vela DO PCP - General Internal Medicine 05/06/15 08/27/15 Kiel Shaffer MD PCP - General Internal Medicine 08/28/15 documented as of this encounter
--- OUTSIDE RECORDS SUMMARY | 2025-02-04 18:59 | XMS_ITS | Clinical Summary ---
Author Organization [facility] Address [address] [place] [address] [place] [address] Phone Care Team Providers Care General Neurologist Name Role Phone Unavailable Primary Care Provider [...] Devices Not on file Insurance [employer] [place] [place] [address] [place] [address] [place] [address] [place] [address] [place] [address] [place] [address] [place] [address] [employer] Additional Source Comments The information contained in this document represents components of the legal health record. It is not the complete legal health record.[facility]
--- OUTSIDE RECORDS SUMMARY | 2025-02-04 18:59 | XMS_ITS | Encounter Summary ---
Author Organization [facility] Address [address] [facility] [address] [place] [address] Phone Care Team Providers Care Metalizing Machine Operator Automatic Name Role Phone Unavailable Primary Care Provider Unavailabl e Encounter Details Date Type Department Care Team (Latest Contact Info) Description 01/04/2020 Ancillary Orders [facility] [address] [place] [address] [place] [address] Bright Jesus, DO [address] [place] [address] Chest pain, unspecified type Social History Tobacco [...] It is not the complete legal health record.[facility]
--- OUTSIDE RECORDS SUMMARY | 2025-02-04 19:00 | XMS_ITS | Encounter Summary ---
Author Organization [facility] Prior to 12/23/2023 Address [address] [place] [address] Care Team Providers Care Digital Intern Name Role Phone Name, Kiel BAILEY Primary Care Provider Unavailabl e NameKiel MD Primary Care Provider Unavailabl e Philly Vela DO Primary Care Pro vider Unavailable Name, Kiel BAILEY Primary Care Provider Unavailabl e Encounter Details Date Type Department Care Team Description 11/12/2009 Controlled Substance Contract with Plan Medical Records [address] [place] [address] Abstract, Provider Social History Tobacco Use Types [...] on filedocumented in this encounter Care Teams Digital Intern Relationship Specialty Start Date End Date Kiel Shaffer MD PCP - General 05/26/09 04/27/15 Kiel Shaffer MD PCP - General Internal Medicine 04/28/15 05/05/15 Philly Vela DO PCP - General Internal Medicine 05/06/15 08/27/15 Kiel Shaffer MD PCP - General Internal Medicine 08/28/15 documented as of this encounter
--- OUTSIDE RECORDS SUMMARY | 2025-02-04 19:00 | XMS_ITS | Encounter Summary ---
Author Organization [facility] [employer] [facility] Prior to 12/23/2023 Address [address] [place] [address] Care Team Providers Care Dental Ceramist Assistant Name Role Phone Name, Kiel BAILEY Primary Care Provider Unavailabl e Name, Kiel BAILEY Primary Care Provider Unavailabl e Philly Vela DO Primary Care Pro vider Unavailable Name, Kiel BAILEY Primary Care Provider Unavailabl e Encounter Details Date Type Department Care Team Description 03/06/2013 Release of Information Medical Records [address] [place] [address] Abstract, Provider Social History Tobacco Use Types [...] on filedocumented in this encounter Care Teams Dental Ceramist Assistant Relationship Specialty Start Date End Date Kiel Shaffer MD PCP - General 05/26/09 04/27/15 Kiel Shaffer MD PCP - General Internal Medicine 04/28/15 05/05/15 Philly Vela DO PCP - General Internal Medicine 05/06/15 08/27/15 Kiel Shaffer MD PCP - General Internal Medicine 08/28/15 documented as of this encounter
--- OUTSIDE RECORDS SUMMARY | 2025-02-04 19:00 | XMS_ITS | Encounter Summary ---
Author Organization [employer] Address [address] [place] [address] 7t [place] [address] Care Team Providers Care Salesperson Corsets Name Role Phone Name, Kiel BAILEY Primary Care Provider Katlyn Rodriguez PharmD Unavailable [phone] Nehal Ann RN Unavailable Unavailable Ania Spencer Unavailable Opal Carrasquillo Unavailable [phone] Tj, Ania Unavailable Tj, Ania Unavailable Tj, Ania Unavailable Reason for Visit * Reason Onset Date Comments FYI 08/03/2024 Encounter Details Date Type Department Care Team (Late st Contact Info) Description 08/03/2024 Telephone [facility] MEDICINE [address] [place], [place] [phone] Name, MD Kiel [address] [place], [place] [phone] FYI Social History Tobacco Use Types Packs/Day [...] any questions you can contact pt at [phone], documented in this encounter Plan of Treatment Upcoming Encounters Date Type Department Care Team ([facility] st Contact Info) Description 02/06/2025 2:30 PM EST Office Visit [address] [address] Mary Jo Perez FNP [address] [place] [address] 02/08/2025 9:30 AM EST Medication Management [address] [address] Puia, Katlyn, PharmD [address] [place] [address] 03/13/2025 11:30 AM EST Telemedicine [address] [address] Kiel Shaffer MD [address] [place] [address] 04/10/2025 10:45 AM EST Office Visit [address] [address] Kiel Shaffer MD [address] [place] [address] 05/31/2025 11:00 AM EDT Telemedicine [address] [address] Opal Steiner, MARINA documented as of this [...] documented as of this encounter Care Teams Salesperson Corsets Relationship Specialty Start Date End Date Kiel Shaffer MD [address] [place] [address] PCP - General Family Medicine 07/15/15 Katlyn Rodriguez, Bin [address] [place] [address] Pharmacist Internal Medicine 10/08/22 Nehal Ann, MARINA [address] [place] [address] Registered Nurse Family Medicine 08/20/24 10/29/24 Ania Spencer 08/20/24 11/26/24 Opal Carrasquillo Registered Nurse 10/29/24 11/26/24 Ania Spencer 12/14/24 12/26/24 Ania Spencer 01/09/25 01/25/25 Ania Spencer 01/30/25 Marta Ovalle Bore Mill Operator For PlasticSet Up Mechanic 05/25/23 documented as of this encounter
--- OUTSIDE RECORDS SUMMARY | 2025-02-04 19:00 | XMS_ITS | Encounter Summary ---
Author Organization [facility] [employer] [facility] Prior to 12/23/2023 Address [address] [place] [address] Care Team Providers Care Supervisor Photostat Name Role Phone Name, Kiel BAILEY Primary Care Provider Unavailabl e Name, Kiel BAILEY Primary Care Provider Unavailabl e Philly Vela DO Primary Care Pro vider Unavailable Name, Kiel BAILEY Primary Care Provider Unavailabl e Encounter Details Date Type Department Care Team Description 06/14/2012 Ash Handler Report Medical Records [address] [place] [address] Bright Jesus MD Social History Tobacco Use [...] filedocumented in this encounter Care Teams Supervisor Photostat Relationship Specialty Start Date End Date Kiel Shaffer MD PCP - General 05/26/09 04/27/15 Kiel Shaffer MD PCP - General Internal Medicine 04/28/15 05/05/15 Philly Veal DO PCP - General Internal Medicine 05/06/15 08/27/15 Kiel Shaffer MD PCP - General Internal Medicine 08/28/15 documented as of this encounter
--- OUTSIDE RECORDS SUMMARY | 2025-02-04 19:00 | XMS_ITS | Encounter Summary ---
Author Organization [facility] Prior to 12/23/2023 Address [address] [place] [address] Care Team Providers Care Annual Campaign Manager Name Role Phone Name, Kiel BAILEY Primary Care Provider Unavailabl e Name, Kiel BAILEY Primary Care Provider Unavailabl e Philly Vela DO Primary Care Pro vider Unavailable Name, Kiel BAILEY Primary Care Provider Unavailabl e Encounter Details Date Type Department Care Team Description 12/11/2009 Supervisor Cleaning And Annealing Report Medical Records [address] [place] [address] Gonzalo Valles MD Social History Tobacco Use [...] on filedocumented in this encounter Care Teams Annual Campaign Manager Relationship Specialty Start Date End Date Kiel Shaffer MD PCP - General 05/26/09 04/27/15 Kiel Shaffer MD PCP - General Internal Medicine 04/28/15 05/05/15 Philly Vela DO PCP - General Internal Medicine 05/06/15 08/27/15 Kiel Shaffer MD PCP - General Internal Medicine 08/28/15 documented as of this encounter
--- OUTSIDE RECORDS SUMMARY | 2025-02-04 19:00 | XMS_ITS | Encounter Summary ---
Author Organization [facility] Prior to 12/23/2023 Address [address] [place] [address] Care Team Providers Care Gas Mask Assembler Name Role Phone Name, Kiel BAILEY Primary Care Provider Unavailabl e Name, Kiel BAILEY Primary Care Provider Unavailabl e Philly Vela DO Primary Care Pro vider Unavailable Name, Kiel BAILEY Primary Care Provider Unavailabl e Encounter Details Date Type Department Care Team Description 12/08/2009 Night Triage Doc Medical Records [address] [place] [address] Abstract, Provider Social History Tobacco Use Types [...] filedocumented in this encounter Care Teams Gas Mask Assembler Relationship Specialty Start Date End Date Kiel Shaffer MD PCP - General 05/26/09 04/27/15 Kiel Shaffer MD PCP - General Internal Medicine 04/28/15 05/05/15 Philly Vela DO PCP - General Internal Medicine 05/06/15 08/27/15 Kiel Shaffer MD PCP - General Internal Medicine 08/28/15 documented as of this encounter
--- OUTSIDE RECORDS SUMMARY | 2025-02-04 19:00 | XMS_ITS | Encounter Summary ---
Author [facility] 12[facility]23 Address [address] [place] [address] Care Team Providers Care Director Of Rehabilitative Services Name Role Phone Name, Kiel BAILEY Primary Care Provider Unavailabl e Name, Kiel BAILEY Primary Care Provider Unavailabl e Philly Vela DO Primary Care Pro vider Unavailable Name, Kiel BAILEY Primary Care Provider Unavailabl e Encounter Details Date Type Department Care Team Description 02/23/2013 Hospital Medical Records [address] [place] [address] Desilets, Shamir Mims MD Social History Tobacco [...] in this encounter Care Teams Director Of Rehabilitative Services Relationship Specialty Start Date End Date Kiel Shaffer MD PCP - General 05/26/09 04/27/15 Kiel Shaffer MD PCP - General Internal Medicine 04/28/15 05/05/15 Philly Vela DO PCP - General Internal Medicine 05/06/15 08/27/15 Kiel Shaffer MD PCP - General Internal Medicine 08/28/15 documented as of this encounter
--- OUTSIDE RECORDS SUMMARY | 2025-02-04 19:00 | XMS_ITS | Encounter Summary ---
Author Organization [facility] [employer] [facility] Prior to 12/23/2023 Address [address] [place] [address] Care Team Providers Care Pulp Mill Supervisor Name Role Phone Name, Kiel BAILEY Primary Care Provider Unavailabl e Name, Kiel BAILEY Primary Care Provider Unavailabl e Philly Vela DO Primary Care Pro vider Unavailable Name, Kiel BAILEY Primary Care Provider Unavailabl e Encounter Details Date Type Department Care Team Description 11/06/2012 Esl Instructor Report Medical Records [address] [place] [address] Zack Castro Social History Tobacco Use Types [...] on filedocumented in this encounter Care Teams Pulp Mill Supervisor Relationship Specialty Start Date End Date Kiel Shaffer MD PCP - General 05/26/09 04/27/15 Kiel Shaffer MD PCP - General Internal Medicine 04/28/15 05/05/15 Philly Vela DO PCP - General Internal Medicine 05/06/15 08/27/15 Kiel Shaffer MD PCP - General Internal Medicine 08/28/15 documented as of this encounter
--- OUTSIDE RECORDS SUMMARY | 2025-02-04 19:00 | XMS_ITS | Encounter Summary ---
Author Organization [employer] Address [address] [place] [address] [address] [place] [address] Care Team Providers Care Freelance Designer Name Role Phone Name, Kiel BAILEY Primary Care Provider [phone] Katlyn Rodriguez PharmD Unavailable Nehal Ann RN Unavailable Unavailable Ania Spencer Unavailable Opal Carrasquillo Unavailable Ania Spencer Unavailable Tj Ania Unavailable Tj Ania Unavailable Reason for Referral * Consultation (Routine) - Closed Specialty Diagnoses / Procedures Referred By Carroll hoover Referred To Contact Occupational Therapy Diagnoses Left arm weakness Lizzie Alfaro NP [address] [place] [address] Phone: tel: fax: [facility] Physical Therapy [address] [place] [address] Phone: tel: fax: Referral ID Status Reason Start Date Expiration Date V isits Requested Visits Authorized [id number] Closed Specialty Services Required 09/06/2024 09/06/2025 20 20 Encounter Details Date Type Department Care Team (Late st Contact Info) Description 09/06/2024 Orders Only [facility] [address] [place] [address] Lizzie Alfaro NP [address] [place], [place] [phone] Left arm weakness (Primary Dx) Social History [...] Description 02/06/2025 2:30 PM EST Office Visit [facility] [address] [place] [address] [phone] Mary Jo Perez FNP [address] [place] [address] 02/08/2025 9:30 AM EST Medication Management [address] [address] Puia, Katlyn, PharmD [address] [place] [address] 03/13/2025 11:30 AM EST Telemedicine [address] [address] Kiel Shaffer MD [address] [place] [phone] 04/10/2025 10:45 AM EST Office Visit [address] [address] NameKiel MD [address] [place] [address] 05/31/2025 11:00 AM EDT Telemedicine [address] [address] Opal Steiner RN Scheduled Referrals Name Type [...] documented as of this encounter Care Teams Freelance Designer Relationship Specialty Start Date End Date Name, MD Kiel [address] [place] [address] PCP - General Family Medicine 07/15/15 Katlyn Rodriguez, Bin [address] [place] [address] Pharmacist Internal Medicine 10/08/22 Nehal Ann RN [address] [place] [address] Registered Nurse Family Medicine 08/20/24 10/29/24 Ania Spencer 08/20/24 11/26/24 Opal Carrasquillo Registered Nurse 10/29/24 11/26/24 Ania Spencer 12/14/24 12/26/24 Ania Spencer 01/09/25 01/25/25 Ania Spencer 01/30/25 Marta Ovalle Glass Production Machine OperatorSecretary Receptionist 05/25/23 documented as of this encounter
--- OUTSIDE RECORDS SUMMARY | 2025-02-04 19:00 | XMS_ITS | Encounter Summary ---
Author Organization [employer] Address [address] [place] [address] [address] [place] [address] Care Team Providers Care Channel Account Manager Name Role Phone Name, Kiel BAILEY Primary Care Provider [phone] Katlyn Rodriguez PharmD Unavailable [phone] Nehal Ann RN Unavailable Unavailable Ania Spencer Unavailable Opal Carrasquillo Unavailable Tj, Ania Unavailable Tj, Anai Unavailable Tj, Ania Unavailable Reason for Referral * Consultation (Routine) - Closed Specialty Diagnoses / Procedures Referred By Carroll hoover Referred To Contact Occupational Therapy Diagnoses Weakness of both lower extremities Hemiparesis of left dominant side as late effect of cerebral infarction (CMS/HCC) (HCC) Lizzie Alfaro NP [address] [place] [address] Phone: tel: fax: [facility] Physical Therapy [address] [place] [address] Phone: tel: fax: Referral ID Status Reason Start Date Expiration Date V isits Requested Visits Authorized [id number] Closed Specialty Services Required 09/06/2024 09/06/2025 20 20 * Consultation (Routine) - Closed Specialty Diagnoses / Procedures Referred By Carroll hoover Referred To Contact Physical Therapy Diagnoses Weakness of both lower extremities Lizzie Alfaro NP [address] [place] [address] Phone: tel: fax: [facility] Physical Therapy [address] [place], [place] Phone: tel: fax: Referral ID Status Reason Start Date Expiration Date V isits Requested Visits Authorized [id number] Closed Specialty Services Required 09/06/2024 09/06/2025 20 20 Encounter Details Date Type Department Care Team (Late st Contact Info) Description 09/06/2024 Orders Only [facility] [address] [place] [address] Lizzie Alfaro NP [address] [place] [address] Weakness of both lower extremities (Primary Dx); [...] Description 02/06/2025 2:30 PM EST Office Visit [address] [address] Mary Jo Perez FNP [address] [place] [address] 02/08/2025 9:30 AM EST Medication Management [address] [address] Katlyn Rodriguez, PharmD [address] [place] [address] 03/13/2025 11:30 AM EST Telemedicine [address] [address] Kiel Shaffer MD [address] [place] [address] 04/10/2025 10:45 AM EST Office Visit [address] [address] Kiel Shaffer MD [address] [place] [address] 05/31/2025 11:00 AM EDT Telemedicine [address] [address] Opal Steiner, MARINA Scheduled Referrals Name Type [...] as of this encounter Care Teams Channel Account Manager Relationship Specialty Start Date End Date Name, MD Kiel [address] [place] [address] PCP - General Family Medicine 07/15/15 Puia, Katlyn, PharmD [address] [place] [address] Pharmacist Internal Medicine 10/08/22 Nehal Ann, MARINA [address] [place] [address] Registered Nurse Family Medicine 08/20/24 10/29/24 Ania Spencer 08/20/24 11/26/24 Opal Carrasquillo Registered Nurse 10/29/24 11/26/24 Ania Spencer 12/14/24 12/26/24 Ania Spencer 01/09/25 01/25/25 Ania Spencer 01/30/25 Marta Ovalle Undercollar BasterLime Boiler 05/25/23 documented as of this encounter
--- OUTSIDE RECORDS SUMMARY | 2025-02-04 19:00 | XMS_ITS | Encounter Summary ---
Author Organization [employer] [facility] Prior to 12/23/2023 Address [address] [place] [address] Care Team Providers Care Machine Plate Stacker Name Role Phone Name, Kiel BAILEY Primary Care Provider Unavailabl e Name, Kiel BAILEY Primary Care Provider Unavailabl e Philly Vela DO Primary Care Pro vider Unavailable Name, Kiel BAILEY Primary Care Provider Unavailabl e Encounter Details Date Type Department Care Team Description 11/17/2013 Transfer Records Medical Records [address] [place] [id number] Abstract, Provider Social History Tobacco Use Types [...] filedocumented in this encounter Care Teams Machine Plate Stacker Relationship Specialty Start Date End Date Kiel Shaffer MD PCP - General 05/26/09 04/27/15 Kiel Shaffer MD PCP - General Internal Medicine 04/28/15 05/05/15 Philly Vela DO PCP - General Internal Medicine 05/06/15 08/27/15 Kiel Shaffer MD PCP - General Internal Medicine 08/28/15 documented as of this encounter
--- OUTSIDE RECORDS SUMMARY | 2025-02-04 19:00 | XMS_ITS | Encounter Summary ---
Author Organization [employer] [facility] Prior to 12/23/2023 Address [address] [place] [address] Care Team Providers Care Developer Architect Name Role Phone Name, Kiel BAILEY Primary Care Provider Unavailabl e Name, Kiel BAILEY Primary Care Provider Unavailabl e Philly Vela DO Primary Care Pro vider Unavailable Name, Kiel BAILEY Primary Care Provider Unavailabl e Encounter Details Date Type Department Care Team Description 02/25/2013 Hospital Medical Records [address] [place] [address] Gaviota Moody MD Social History Tobacco Use [...] on filedocumented in this encounter Care Teams Developer Architect Relationship Specialty Start Date End Date Kiel Shaffer MD PCP - General 05/26/09 04/27/15 Kiel Shaffer MD PCP - General Internal Medicine 04/28/15 05/05/15 Philly Vela DO PCP - General Internal Medicine 05/06/15 08/27/15 Kiel Shaffer MD PCP - General Internal Medicine 08/28/15 documented as of this encounter
--- OUTSIDE RECORDS SUMMARY | 2025-02-04 19:00 | XMS_ITS | Encounter Summary ---
Author Organization [employer] Address [address] [place] [address] 7[address] [place] [address] Care Team Providers Care Planner Name Role Phone Name, Kiel BAILEY Primary Care Provider [phone] Katlyn Rodriguez PharmD Unavailable Nehal Ann RN Unavailable Unavailable Ania Spencer Unavailable Opal Carrasquillo Unavailable Tj, Ania Unavailable Tj, Ania Unavailable Tj, Ania Unavailable Reason for Visit * Reason Onset Date Comments FYI 08/03/2024 Encounter Details Date Type Department Care Team (Late st Contact Info) Description 08/03/2024 Telephone [facility] [address] [place], [place] [phone] Name, MD Kiel [address] [place], [place] [phone] FYI Social History Tobacco Use Types Packs/Day [...] - 08/03/2024 2:00 PM EDT Tc from [facility] with N stating pt has an upcoming appointment with pcp and would like to report: 1) Pt was discharged yesterday 08/02. Reason: COPD. 2) F/u Left ear symptoms. Pt unable to hear. 3) F/u pull up prescription. Any questions contact [facility] [phone] documented in this encounter Plan of Treatment Upcoming Encounters Date Type Department Care Team (Late st Contact Info) Description 02/06/2025 2:30 PM EST Office Visit [address] [address] Mary Jo Perez FNP [address] [place] [address] 02/08/2025 9:30 AM EST Medication Management [address] [address] PuiaKatlyn, PharmD [address] [place] [address] 03/13/2025 11:30 AM EST Telemedicine [address] [address] Kiel Shaffer MD [address] [place] [address] 04/10/2025 10:45 AM EST Office Visit [address] [address] Kiel Shaffer MD [address] [place] [address] 05/31/2025 11:00 AM EDT Telemedicine [address] [address] Opal Steiner, RN documented as of this [...] documented as of this encounter Care Teams Planner Relationship Specialty Start Date End Date Name, MD Kiel [address] [place] [address] PCP - General Family Medicine 07/15/15 Katlyn Rodriguez PharmD [address] [place] [address] Pharmacist Internal Medicine 10/08/22 Nehal Ann RN [address] [place] [address] Registered Nurse Family Medicine 08/20/24 10/29/24 Ania Spencer 08/20/24 11/26/24 Opal Carrasquillo Registered Nurse 10/29/24 11/26/24 Ania Spencer 12/14/24 12/26/24 Ania Spencer 01/09/25 01/25/25 Ania Spencer 01/30/25 Marta Ovalle Territory SupervisorProject Construction Manager 05/25/23 documented as of this encounter
--- OUTSIDE RECORDS SUMMARY | 2025-02-04 19:00 | XMS_ITS | Encounter Summary ---
Author Organization [employer] [facility] Prior to 12/23/2023 Address [address] [place] [address] Care Team Providers Care Junior Engineer Name Role Phone Name, Kiel BAILEY Primary Care Provider Unavailabl e Name, Kiel BAILEY Primary Care Provider Unavailabl e Philly Vela DO Primary Care Pro vider Unavailable Name, Kiel BAILEY Primary Care Provider Unavailabl e Encounter Details Date Type Department Care Team Description 12/12/2012 Cloth Shearing Supervisor Report Medical Records [address] [place] [address] Zack Castro Social History Tobacco Use Types [...] on filedocumented in this encounter Care Teams Junior Engineer Relationship Specialty Start Date End Date Kiel Shaffer MD PCP - General 05/26/09 04/27/15 Kiel Shaffer MD PCP - General Internal Medicine 04/28/15 05/05/15 Philly Vela DO PCP - General Internal Medicine 05/06/15 08/27/15 Kiel Shaffer MD PCP - General Internal Medicine 08/28/15 documented as of this encounter
[2025-02-04 19:09] VITALS: BP 104/62; PULSE 70; RESP 20; TEMP 36.3; O2SAT 98
[2025-02-04 20:30] VITALS: BP 118/50; PULSE 74; RESP 20; TEMP 36.4; O2SAT 96
[2025-02-04 20:38] LABS: Appearance Urine Clear; Glucose Urine UA Negative (Negative); PH 5.5 (5.0-9.0); Specific Gravity - Urine 1.015 (1.005-1.025)
--- NOTE | 2025-02-04 20:51 | PM.IMHP ---
History of Present Illness Date of Service: 02/04/25 Attending physician on admission: Edgar Rosas Chief Complaint: R hand weakness Patient is a 59-year-old Mauritian-speaking female with a past medical history significant for COPD, seizure disorder, , hx CVA with L deficit, type 2 diabetes, brain lesion, CAD, lymphoma, DRE, tobacco use, morbid obesity, hyperlipidemia and GERD, who presented to the ED due to sudden headache and right hand weakness beginning yesterday around 18:00. She denies any visual changes, nausea, vomiting, urinary symptoms or upper respiratory symptoms. Her headache persists but is intermittent, mild and frontal. She has been able to ambulate without difficulty and isn't having any lower extremity symptoms aside from her chronic left-sided deficit due to previous stroke. She recently had an MRI on 02/01 which showed consider cytotoxic lesions of corpus callosum related to seizures versus metabolic disturbances versus infectious versus malignancy versus drug related and/or toxins related. Vascular versus autoimmune disorder should be considered . ED provider spoke with Dr. Villaseñor who suggested admission and he will f/u with her tomorrow. Review of Systems Constitutional: Constitutional: Denies body ache(s), Denies chills, Denies fatigue, Denies fever(s) and Reports headache(s) Eyes: Eyes: Denies change in vision ENT: Reports headache(s), Denies nasal congestion and Denies sore throat Cardiovascular: Cardiovascular: Reports chest pain, Denies rapid heart rate, Denies leg edema, Denies lightheadedness and Denies dyspnea Respiratory: Respiratory: Denies chest congestion, Denies cough, Denies dyspnea and Denies wheezing Gastrointestinal: Gastrointestinal: Denies abdominal pain, Denies diarrhea, Denies nausea and Denies vomiting Genitourinary: Genitourinary: Denies dysuria and Denies urinary urgency Musculoskeletal: Musculoskeletal: Denies back pain and Denies myalgias Integumentary/Breasts: Skin/Breast: Denies rash Neurologic: Reports as per HPI, Denies confusion and Reports headache(s) Psychiatric: Psychiatric: Denies confusion Endocrine: Endocrine: Denies fatigue Hematologic/Lymphatic: Hematologic/Lymphatic: Denies easy bleeding Allergic/Immunologic: Allergic/Immunologic: Denies wheezing [facility] Medical History COPD (chronic obstructive pulmonary disease) Diabetes mellitus Brain lesion Reactive airway disease Coronary artery disease Insulin dependent type 2 diabetes mellitus Exposure to rabies Lymphoma Restrictive lung disease secondary to obesity Nocturnal hypoxemia DRE (obstructive sleep apnea) Cough Nicotine dependence, cigarettes, uncomplicated Allergic rhinitis Morbid obesity Hyperlipidemia GERD (gastroesophageal reflux disease) Tubular adenoma Chronic idiopathic constipation IBS (irritable bowel syndrome) Back pain Depression Family History Mother Diabetes Heart muscle disorder caused by another medical condition Father Diabetes Epilepsy Sister No problems noted. Sister No problems noted. Sister No problems noted. Sister No problems noted. Sister No problems noted. Brother No problems noted. Brother No problems noted. Brother No problems noted. Brother No problems noted. Brother No problems noted. Brother No problems noted. Daughter No problems noted. Daughter No problems noted. Son No problems noted. Son No problems noted. Son No problems noted. Surgical History History of total right knee replacement (TKR) History of appendectomy (~1978) History of (~1986) History of hysterectomy (~1995) History of lithotripsy (~2018) History of carpal tunnel surgery of right wrist (~2020) History of colonoscopy History of esophagogastroduodenoscopy (EGD) Social History Household Members: Other Household Members Other:: grandson Housing: Apartment Are you a primary primary health care nurse to a significant other at home: No Do you presently have visiting nurse or other home services: No Alcohol intake: current Alcohol intake frequency: does not drink Patient Tobacco Use Status: Current everyday Tobacco user Tobacco use type: Cigarette Cigarette Packs Per Day: 2 Cigarettes Per Day: 40.0 Years Smoked: (onset 13yo, x 42yrs, max 2ppd, now 1/2ppd - 30PYH) e-Cigarette/Vaping Use: Never Used Second Hand Smoke Exposure: No Substance Use Type: Marijuana Advance Directives: No Advance Directives Information Provided: Yes service: No Current occupational status: disabled Current occupation: rt handed Meds Allergies Allergy/AdvReac Type Severity Reaction Status Date / Time penicillin G (Penicillin G) Allergy Mild SWELLING Verified 02/04/25 12:50 barium sulfate (ORAL Allergy Unknown HIVES Verified 02/04/25 12:50 CONTRAST) cephalexin Allergy Unknown Unknown Verified 02/04/25 12:50 Home Medications ?Medication ?Instructions ?Recorded ?Confirmed ?Last Taken ?Type montelukast 10 mg tablet 10 mg PO BEDTIME 02/13/20 02/04/25 02/04/25 09:00 History (Singulair) paroxetine HCl 40 mg tablet 40 mg PO BEDTIME 12/05/20 02/04/25 02/04/25 09:00 History pen needle, diabetic 32 gauge x #50 ea 12/05/20 10/03/24 Unknown History (Pentips Pen Needle) insulin glargine 100 unit/mL (3 15 unit subcut DAILY 05/26/21 02/04/25 02/04/25 09:00 History mL) subcutaneous pen (Lantus Solostar U-100 Insulin) lidocaine 5 % topical patch 1 patch topical DAILY PRN Pain 04/21/22 02/04/25 02/04/25 09:00 History metoprolol succinate 25 mg 25 mg PO BEDTIME 04/21/22 02/04/25 02/04/25 09:00 History tablet,extended release 24 hr oxcarbazepine 300 mg tablet 450 mg PO BEDTIME 04/21/22 02/04/25 02/04/25 09:00 History clonidine HCl 0.1 mg tablet 0.1 mg PO BEDTIME 07/08/22 02/04/25 02/04/25 09:00 History atorvastatin 80 mg tablet 80 mg PO BEDTIME 01/05/23 02/04/25 02/04/25 09:00 History metformin 500 mg tablet,extended 500 mg PO BEDTIME 01/05/23 02/04/25 02/04/25 09:00 History release 24 hr acetaminophen 650 mg 650 mg PO Q8H PRN Mild Pain (Scale 06/18/24 02/04/25 02/04/25 09:00 History tablet,extended release Score 1-4) albuterol sulfate 2.5 mg/3 mL 2.5 mg inhalation Q4H PRN 06/18/24 02/04/25 02/04/25 09:00 History (0.083 %) solution for nebulization shortness of breath or wheezing albuterol sulfate 90 mcg/actuation 2 puff inhalation Q4H PRN wheezing 06/18/24 02/04/25 02/04/25 09:00 History aerosol inhaler (Ventolin HFA) calcium 600 mg (as 1 tab PO BID 06/18/24 02/04/25 02/04/25 09:00 History carbonate)-vitamin D3 5 mcg (200 unit) tablet cetirizine 10 mg tablet (Zyrtec) 10 mg PO DAILY 06/18/24 02/04/25 02/04/25 09:00 History ezetimibe 10 mg tablet 10 mg PO DAILY 06/18/24 02/04/25 02/04/25 09:00 History famotidine 20 mg tablet 20 mg PO BID 06/18/24 02/04/25 02/04/25 09:00 History furosemide 20 mg tablet 20 mg PO DAILY 06/18/24 02/04/25 02/04/25 09:00 History icosapent ethyl 1 gram capsule 2 g PO BID 06/18/24 02/04/25 02/04/25 09:00 History losartan 50 mg tablet 50 mg PO DAILY 06/18/24 02/04/25 02/04/25 09:00 History oxcarbazepine 150 mg tablet 150 mg PO DAILY 06/18/24 02/04/25 02/04/25 09:00 History tirzepatide 15 mg/0.5 mL 15 mg subcut TH 06/18/24 02/04/25 01/31/25 History subcutaneous pen injector (Lurdes) aspirin 81 mg chewable tablet 1 tab PO QPM 02/04/25 02/04/25 02/04/25 09:00 History gabapentin 800 mg tablet 800 mg PO TID 02/04/25 02/04/25 02/04/25 09:00 History rosuvastatin 40 mg tablet 40 mg PO BEDTIME 02/04/25 02/04/25 02/04/25 09:00 History Physical Exam Vital Signs and Narrative: Vital Signs: Last Vital Signs Temp 97.6 F 02/04/25 20:30 Pulse 74 02/04/25 20:30 Resp 20 02/04/25 20:30 BP 118/50 L 02/04/25 20:30 Pulse Ox 96 02/04/25 20:30 O2 Del Method Room Air 02/04/25 20:30 BMI result Body Mass Index 42.0 General: AOx3, no acute distress, seen with asset coordinator and patient's daughter Resp: CTA bilaterally CVS: S1, S2, RRR GI: +BS, NT, no distention Skin: Warm, dry Neuro: Cranial nerves II-XII grossly intact bilaterally. L weakness and inability to lift arm from previous CVA, 1/5 strategy director strength R hand, finger adduction and abduction 1/5 R hand. R arm strength 4/5, RLE 4/5 Extremities: No pitting edema Psych: Appropriate affect Const: General: No confusion Orientation/consciousness: No confusion Neuro: General: No confusion Results Labs 02/04/25 13:01 02/04/25 13:01 Labs: Laboratory Results - last 24 hr 02/04/25 02/04/25 13:01 20:32 MCV 82.5 MCH 27.5 MCHC 33.3 RDW 12.8 Plt Count 170 D MPV 11.3 Immature Gran % (Auto) 0.2 Neut % (Auto) 59.6 Lymph % (Auto) 30.4 Hayes % (Auto) 7.6 Eos % (Auto) 1.5 Baso % (Auto) 0.7 Lymph # (Auto) 1.8 Hayes # (Auto) 0.5 Eos # (Auto) 0.1 Baso # (Auto) 0.0 Abs Immat Gran (auto) 0.01 Absolute Neuts (auto) 3.6 Absolute Nucleated RBC 0.000 Nucleated RBC % (auto) 0.0 PT 12.9 INR 1.1 Anion Gap 12 Estim Creat Clear Calc 148.2 Estimated GFR > 60 Random Glucose 104 Calcium 9.8 D Magnesium 1.9 Total Bilirubin 0.6 AST 20 ALT 32 H Alkaline Phosphatase 77 Troponin I High Sens < 2.7 Total Protein 6.9 Albumin 4.5 Urine Color Yellow Urine Appearance Clear Urine pH 5.5 Ur Specific [place] 1.015 Urine Protein Negative Urine Glucose (UA) Negative Urine Ketones Negative Urine Blood Negative Urine Nitrite Negative Ur Leukocyte Esterase Negative Influenza Type A (PCR) NEGATIVE Influenza Type B (PCR) NEGATIVE RSV RNA Qual (PCR) NEGATIVE SARS-CoV-2 RNA (RT-PCR) NEGATIVE Imaging Radiologist's Impressions: Impressions Chest X-Ray 02/04/25 13:05 IMPRESSION: Subsegmental left basilar atelectasis. Electronically signed by: Zohaib Murray MD 02/04/2025 01:22 PM EST Assessment and Plan (1) Right hand weakness: Status: Acute (2) Morbid obesity: Status: Acute Plan Patient is a 59-year-old Mauritian-speaking female with a past medical history significant for COPD, seizure disorder, type 2 diabetes, brain lesion, CAD, lymphoma, DRE, tobacco use, morbid obesity, hyperlipidemia and GERD, who presented to the ED due to sudden headache and right hand weakness beginning yesterday around 18:00. R hand weakness/intermittent headache - MRI brain/c-spine in AM - monitor on tele - echo - TSH, B12 - neurology consult - neuro checks - PT/OT - bedside swallow chest pain - EKG/trop/CXR negative - monitor on tele moderate COPD, no acute exacerbation - continue home therapies seizure disorder - oxcarbazepine T2DM - SSI - Lantus -- pt reported 50U QHS will need re-verified as confliciting info in chart - hold metformin - diabetic diet DRE - CPAP at bedtime morbid obestiy - BMI 42.0 , weight loss encouraged HLD - lipid panel - continue home therapies GERD - continue home therapies med rec pending DNR/DNI VTE prophy: SCDs pending MRI Pt with R hand weakness requiring admission for observation for further evaluation, monitoring and neurology consult tomorrow. Quality Stroke Does the patient have a stroke diagnosis?: No VTE Prior VTE?: No VTE Risk Level:: Medical - moderate - high VTE Device Contraindication: N/A - Device Ordered VTE Drug Contraindication: Treatment Not Indicated
[2025-02-04 22:03] LABS: Cholesterol 153 mg/dL (<200); HDL Cholesterol 35 mg/dL (>40); Triglycerides 129 mg/dL (<150)
--- NOTE | 2025-02-04 22:11 | PHA.MEDREC ---
Pharmacy Consult ? Medication Reconciliation Pharmacy has completed the medication reconciliation. Spoke to patient and family with help from underground supervisor services. Patient wasn't sure what she takes but was able to say yes or no with some prompting and family helped remember. Family also sent a picture of medication pre-packs that are delivered for some of the meds.
[2025-02-04 22:30] LABS: Folate 11.1 ng/mL (> or = 4.0); Vitamin B12 364 pg/mL (200-900)
[2025-02-04] MEDS: PARoxetine HCL 40 MG TABLET PO (23:19)
[2025-02-04] MEDS: Milk of Magnesia 30 ML ORAL.SUSP PO (23:22)
[2025-02-05] VITALS (7 sets, daily range): BP systolic 117–142; BP diastolic 63–85; PULSE 65–79; RESP 14–18; TEMP 36.1–36.8; O2SAT 94–99
[2025-02-05 03:54] LABS: Hematocrit 40.0 % (37.0-47.0); Hemoglobin 13.0 g/dl (12.0-16.0); Imm Gran Abs Auto 0.02 X10*3/uL (0.00-0.03); Imm Gran Pct Auto 0.3 % (0.0-0.4); Lymphocytes Absolute Auto 2.8 X10*3/uL (1.2-4.9); MANUAL DIFF FLAG NO; Mean Corpuscular HGB Conc 32.5 g/dl (31.0-35.0); Mean Corpuscular Hemoglobin 27.2 pg (27.0-33.0); Mean Corpuscular Volume 83.7 fL (80.0-98.0); NRBC Abs Auto 0.000 X10*3/uL (0.0-0.012); NRBC Pct Auto 0.0 /100WBC (0.0-0.2); Platelet Count 170 X10*3/uL (160-400); Red Blood Count 4.78 X10*6/uL (4.20-5.50); White Blood Count 8.0 X10*3/uL (4.8-10.8)
[2025-02-05 04:06] LABS: Anion Gap 14 (12-20); Blood Urea Nitrogen 19 mg/dL (9-16); Calcium 9.5 mg/dL (8.4-10.2); Carbon Dioxide 24 mmol/L (22-29); Chloride 105 mmol/L (96-108); Creatinine Clr Calc Pharmacy 127.1; Estimated Glomerular Filt Rate > 60; Potassium 3.7 mmol/L (3.3-5.1); Sodium 139 mmol/L (135-145)
--- NOTE | 2025-02-05 04:27 | PC.NURSE ---
Hospitalist made aware of pt's 10/10 lower abdominal pain and RN's concerns of medicating her with PRN narcotics. New orders obtained for digital media manager and CT scan.
--- NOTE | 2025-02-05 07:00 | CA_ITS ---
Transthoracic Echocardiogram Patient (Last, First, Middle): Sarita Puga M Gender: Female Date of : 1965 Age: 59 Procedure Date: 02/05/2025 Procedure Type: Transthoracic Echocardiogram Location: ER Height: 160.02 cm Weight: 107.5 kg BSA: 2.08 m2 Heart Rate: bpm BP: 120 / 65 mmHg [facility] Assistant: TO Referring MD: Nehal Gannon PA-C Symptoms: ?CVA Study Quality: Fair/Contrast Conclusions: - Normal left ventricular size, thickness, systolic function, and wall motion. The visually estimated ejection fraction is between 60-65%. - E/E prime ratio is between 8 and 15 consistent with indeterminate filling pressures. - Normal right ventricular cavity size and systolic function. - There is no evidence of interatrial shunt by agitated saline. Findings Procedure Information Contrast agent, definity, is being given per protocol without apparent complications. The study quality is limited by the patients inability to tolerate the test and patients body habitus. Left Ventricle Normal left ventricular size, thickness, systolic function, and wall motion. The visually estimated ejection fraction is between 60-65%. There is no evidence of regional wall motion abnormalities. Abnormal diastolic function is noted. Spectral Doppler is indicative of a pseudonormal filling pattern. E/E prime ratio is between 8 and 15 consistent with indeterminate filling pressures. Right Ventricle Normal right ventricular cavity size and systolic function. Atria The left atrium is normal in size. There is no evidence of interatrial shunt by agitated saline. The right atrium is normal in size. Aortic Valve Normal aortic valve structure and function. There is no aortic valve stenosis. There is no aortic valve regurgitation. Mitral Valve The mitral valve appears normal. There is no mitral valve regurgitation. There is no mitral valve stenosis. Pulmonic Valve The pulmonic valve is likely normal. Tricuspid Valve Normal tricuspid valve structure and function. Tricuspid regurgitation envelope is inadequate for calculation of right ventricular systolic pressure. Normal right atrial pressure. Great Vessels All visible segments of the aorta are normal in size. The visualized portions of the pulmonary artery and branches are normal. Venous The inferior vena cava is normal in size and collapses greater than 50% with inspiration. Pericardium/Pleural There is no evidence of pericardial effusion. Prior Study Comparison No prior study available for comparison. Measurements 2D Linear Measurements IVSd: 0.86 0.6-0.9/0.6-1.0 cm LVIDd: 4.36 3.9-5.3/4.2-5.9 cm LVIDd Index: 2.10 2.4-3.2/2.2-3.1 cm/m2 LVIDs: 2.58 2.0-3.6 cm LVPWd: 0.83 0.7-1.1 cm LA Diam: 2.90 2.7-3.8/3.0-4.0 cm LAIDs Index: 1.39 1.5-2.3 cm/m2 LV Mass: 144.22 67-162/88-224 g LV Mass Index: 69.34 43-95/49-115 g/m2 LVOT Diam: 2.00 3.0+(-)1.3 cm 2D Systolic Function EF 4C: 64.30 >55% EF 2C: 61.80 >55% EF BiP: 62.10 >55% Mitral Valve MV Pk E: 0.85 MV PK A: 0.76 MV Decel Time: 232.00 E/A: 1.10 E'Lateral: 6.85 E'Medial: 6.74 E/E' Med: 12.60 E/E' Lat: 12.40 PHT: 68.00 MVA PHT: 3.24 Decel Reagan: 3.65 Aortic Valve AoV Pk Fritz: 1.79 AoV Mn Fritz: 1.11 AoV VTI: 0.30 AoV Pk Grad: 13.00 Aov Mn Grad: 6.00 VERO Cont.VTI: 2.02 LVOT LVOT Pk Fritz: 1.11 LVOT Mn Fritz: 0.70 LVOT VTI: 0.19 LVOT Pk Grad: 5.00 LVOT Mn Grad: 2.00 LVOT Diam: 2.00 LVOT Area: 3.14 Diastolic Function MV Pk E: 0.85 MV Pk A: 0.76 E/A: 1.10 E'Medial: 6.74 E/E' Med: 12.60 E' Laterial: 6.85 E/E' Lat: 12.40 Right Ventricle TAPSE (mm): 21.70 TVS' Fritz: 13.60 Tricuspid Valve RA Press: 3.00 Great Vessels Aorta Sinus of Valsalva: 2.84 2.0-3.5 cm Ao Asc: 2.40 2.1-3.4 cm Updated in Other Vendor System with Status of Final Fercho Torres MD electronically signed on 02/06/2025 8:32:19 PM with status of Final
[2025-02-05] MEDS: 0.9 % Sodium Chloride Flush 3 ML SYRINGE IVFLUSH ×2 (08:18→17:36)
[2025-02-05 08:30] LABS: Glucose, Whole Blood 117 mg/dL (60-115)
--- NOTE | 2025-02-05 10:59 | PM.NEUROCN ---
History of Present Illness Data of Consult Service Date: 02/05/25 Primary Care Provider: MD KENAN Mccord Reason for consult: Right-sided weakness in the last 2 days This is a 59-year-old woman with a history of COPD, seizure disorder, with a right cerebral peduncle expansile lesion extending towards the thalamus on MRI in May 2024 with left hemiparesis thought to be a stroke with L deficit,with some resolution on f/u MRI on 07/10/24, type 2 diabetes, CAD, lymphoma, DRE, tobacco use, morbid obesity, hyperlipidemia and GERD, who presented to the ED due to headache and right hand weakness beginning yesterday around 18:00. She denies any visual changes, nausea, vomiting, urinary symptoms or upper respiratory symptoms, fever, chills, head trauma, Co exposure. Her headache persists but is intermittent, mild and frontal. She has been able to ambulate without difficulty and isn't having any lower extremity symptoms aside from her chronic left-sided deficit due to previous stroke. She had a Limited MRI of the brain which shows hyperintense diffusion weighted imaging signal abnormality involving the peripheral aspect of the thalami extending into the right and to a lesser extent left midbrain and left ventral geovany with associated subtle hypointense signal on the corresponding ADC map.Hyperintense diffuse weighted image signal within the splenium of the corpus callosum extending from the midline to the left and right.Sellar/suprasellar region is normal. [facility] Past Medical History Medical History COPD (chronic obstructive pulmonary disease) Diabetes mellitus Brain lesion Reactive airway disease Coronary artery disease Insulin dependent type 2 diabetes mellitus Exposure to rabies Lymphoma Restrictive lung disease secondary to obesity Nocturnal hypoxemia DRE (obstructive sleep apnea) Cough Nicotine dependence, cigarettes, uncomplicated Allergic rhinitis Morbid obesity Hyperlipidemia GERD (gastroesophageal reflux disease) Tubular adenoma Chronic idiopathic constipation IBS (irritable bowel syndrome) Back pain Depression Family History Family History Mother Diabetes Heart muscle disorder caused by another medical condition Father Diabetes Epilepsy Sister No problems noted. Sister No problems noted. Sister No problems noted. Sister No problems noted. Sister No problems noted. Brother No problems noted. Brother No problems noted. Brother No problems noted. Brother No problems noted. Brother No problems noted. Brother No problems noted. Daughter No problems noted. Daughter No problems noted. Son No problems noted. Son No problems noted. Son No problems noted. Surgical History Surgical History History of total right knee replacement (TKR) History of appendectomy (~1978) History of (~1986) History of hysterectomy (~1995) History of lithotripsy (~2018) History of carpal tunnel surgery of right wrist (~2020) History of colonoscopy History of esophagogastroduodenoscopy (EGD) Social History Social History Household Members: Other Household Members Other:: grandson Housing: Apartment Are you a primary care manager cna to a significant other at home: No Do you presently have visiting nurse or other home services: No Alcohol intake: current Alcohol intake frequency: does not drink Patient Tobacco Use Status: Never used Tobacco Tobacco use type: Cigarette Cigarette Packs Per Day: 2 Cigarettes Per Day: 40.0 Years Smoked: (onset 13yo, x 42yrs, max 2ppd, now 1/2ppd - 30PYH) Smoked in Last 30 Days: No e-Cigarette/Vaping Use: Never Used Second Hand Smoke Exposure: No Use of substances other than those prescribed or required for medical reasons: No Substance Use Type: Marijuana Advance Directives: No Advance Directives Information Provided: Yes Nutrition Risks: No Nutritional Risk Patient : No service: No Current occupational status: disabled Current occupation: rt handed Meds Allergies Allergy/AdvReac Type Severity Reaction Status Date / Time penicillin G (Penicillin G) Allergy Mild SWELLING Verified 02/04/25 12:50 barium sulfate (ORAL Allergy Unknown HIVES Verified 02/04/25 12:50 CONTRAST) cephalexin Allergy Unknown Unknown Verified 02/04/25 12:50 Active Medications: Current Medications Acetaminophen (Acetaminophen 325 Mg Tablet) 975 mg PO Q6H PRN PRN Reason: Pain, Mild 1-3,fever,headache Albuterol Sulfate (Albuterol Sulfate (0.083%) 2.5 Mg/3 Ml Vial.Neb) 2.5 mg INHALE Q4H PRN PRN Reason: shortness of breath or wheezing Albuterol Sulfate (Albuterol Sulfate 90 Mcg 8 Gm Inhaler) 2 puff INHALE Q4H PRN PRN Reason: Wheezing Aspirin (Aspirin 81 Mg Tab.Chew) 81 mg PO BEDTIME CLAUDETTE Last Admin: 02/04/25 23:18 Dose: 81 mg Atorvastatin Calcium (Atorvastatin Calcium 80 Mg Tablet) 80 mg PO BEDTIME CLAUDETTE Last Admin: 02/04/25 23:19 Dose: 80 mg Calcium Carbonate (Calcium Carbonate 750 Mg Tab.Chew) 750 mg PO Q4H PRN PRN Reason: Heartburn Clonidine HCl (Clonidine Hcl 0.1 Mg Tablet) 0.1 mg PO BEDTIME CLAUDETTE; Protocol Dextrose (Dextrose 50 % 25 Gm/50 Ml Syringe) 25 gm IVPUSH Q15M PRN; Protocol PRN Reason: per Hypoglycemia Standing Ord. Ezetimibe (Ezetimibe 10 Mg Tablet) 10 mg PO DAILY [facility] Last Admin: 02/05/25 09:43 Dose: 10 mg Famotidine (Famotidine 20 Mg Tablet) 20 mg PO BID [facility] Last Admin: 02/05/25 09:43 Dose: 20 mg Fluticasone/Vilanterol (Fluticasone/Vilanterol 100/25 Blst.W.Dev) 1 puff INHALE RDAILY [facility] Furosemide (Furosemide 20 Mg Tablet) 20 mg PO DAILY CLAUDETTE; Protocol Last Admin: 02/05/25 09:43 Dose: 20 mg Gabapentin (Gabapentin 400 Mg Capsule) 800 mg PO TID [facility] Last Admin: 02/05/25 09:43 Dose: 800 mg Glucose (Glucose Gel 15 Gm Gel..Gram.) 15 gm PO Q15M PRN; Protocol PRN Reason: per Hypoglycemia Standing Ord. Insulin Glargine (Insulin Glargine,Hum.Rec.Anlog 100 Unit/Ml 10 Ml Vial) 35 unit SUBCUT BEDTIME [facility] Insulin Human Lispro (Insulin Lispro 100 Unit/Ml 3 Ml Vial) 0 unit SUBCUT QIDACHS [facility]; Protocol Last Admin: 02/05/25 08:28 Dose: Not Given Loratadine (Loratadine 10 Mg Tablet) 10 mg PO DAILY [facility] Last Admin: 02/05/25 09:43 Dose: 10 mg Losartan Potassium (Losartan Potassium 50 Mg Tablet) 50 mg PO DAILY [facility]; Protocol Last Admin: 02/05/25 09:40 Dose: 50 mg Magnesium Hydroxide (Milk Of Magnesia 30 Ml Oral.Susp) 30 ml PO DAILY PRN PRN Reason: Constipation Last Admin: 02/04/25 23:22 Dose: 30 ml Melatonin (Melatonin 3 Mg Tablet) 6 mg PO BEDTIME PRN PRN Reason: Insomnia Metoprolol Succinate (Metoprolol Succinate Er 25 Mg Tab.Er.24h) 25 mg PO BEDTIME [facility]; Protocol Montelukast Sodium (Montelukast Sodium 10 Mg Tablet) 10 mg PO BEDTIME [facility]UDETTE Ondansetron HCl (Ondansetron Hcl 4 Mg/2 Ml Vial) 4 mg IVPUSH Q8H PRN PRN Reason: Nausea and Vomiting Oxcarbazepine (Oxcarbazepine 150 Mg Tablet) 150 mg PO DAILY [facility] Last Admin: 02/05/25 09:43 Dose: 150 mg Oxcarbazepine (Oxcarbazepine 150 Mg Tablet) 450 mg PO BEDTIME [facility] Last Admin: 02/04/25 23:18 Dose: 450 mg Oxycodone HCl (Oxycodone Hcl Immed Release 5 Mg Tablet) 5 mg PO Q6H PRN PRN Reason: Pain, Severe (Pain Scale 7-10) Paroxetine HCl (Paroxetine Hcl 40 Mg Tablet) 40 mg PO BEDTIME [facility] Last Admin: 02/04/25 23:19 Dose: 40 mg Pyridoxine HCl (Pyridoxine Hcl (Vitamin B6) 50 Mg Tablet) 100 mg PO DAILY [facility] Last Admin: 02/05/25 09:43 Dose: 100 mg Sodium Chloride (0.9 % Sodium Chloride Flush 3 Ml Syringe) 3 ml IVFLUSH QSHIFT [facility] Last Admin: 02/05/25 08:18 Dose: 3 ml Tramadol HCl (Tramadol Hcl 50 Mg Tablet) 50 mg PO Q6H PRN PRN Reason: Pain, Moderate(Pain Scale 4-6) Home Medications ?Medication ?Instructions ?Recorded ?Confirmed ?Last Taken ?Type montelukast 10 mg tablet 10 mg PO BEDTIME 02/13/20 02/04/25 02/04/25 09:00 History (Singulair) paroxetine HCl 40 mg tablet 40 mg PO BEDTIME 12/05/20 02/04/25 02/04/25 09:00 History pen needle, diabetic 32 gauge x #50 ea 12/05/20 10/03/24 Unknown History (Pentips Pen Needle) insulin glargine 100 unit/mL (3 15 unit subcut DAILY 05/26/21 02/04/25 02/04/25 09:00 History mL) subcutaneous pen (Lantus Solostar U-100 Insulin) lidocaine 5 % topical patch 1 patch topical DAILY PRN Pain 04/21/22 02/04/25 02/04/25 09:00 History metoprolol succinate 25 mg 25 mg PO BEDTIME 04/21/22 02/04/25 02/04/25 09:00 History tablet,extended release 24 hr oxcarbazepine 300 mg tablet 450 mg PO BEDTIME 04/21/22 02/04/25 02/04/25 09:00 History clonidine HCl 0.1 mg tablet 0.1 mg PO BEDTIME 07/08/22 02/04/25 02/04/25 09:00 History atorvastatin 80 mg tablet 80 mg PO BEDTIME 01/05/23 02/04/25 02/04/25 09:00 History metformin 500 mg tablet,extended 500 mg PO BEDTIME 01/05/23 02/04/25 02/04/25 09:00 History release 24 hr acetaminophen 650 mg 650 mg PO Q8H PRN Mild Pain (Scale 06/18/24 02/04/25 02/04/25 09:00 History tablet,extended release Score 1-4) albuterol sulfate 2.5 mg/3 mL 2.5 mg inhalation Q4H PRN 06/18/24 02/04/25 02/04/25 09:00 History (0.083 %) solution for nebulization shortness of breath or wheezing albuterol sulfate 90 mcg/actuation 2 puff inhalation Q4H PRN wheezing 06/18/24 02/04/25 02/04/25 09:00 History aerosol inhaler (Ventolin HFA) calcium 600 mg (as 1 tab PO BID 06/18/24 02/04/25 02/04/25 09:00 History carbonate)-vitamin D3 5 mcg (200 unit) tablet cetirizine 10 mg tablet (Zyrtec) 10 mg PO DAILY 06/18/24 02/04/25 02/04/25 09:00 History ezetimibe 10 mg tablet 10 mg PO DAILY 06/18/24 02/04/25 02/04/25 09:00 History famotidine 20 mg tablet 20 mg PO BID 06/18/24 02/04/25 02/04/25 09:00 History furosemide 20 mg tablet 20 mg PO DAILY 06/18/24 02/04/25 02/04/25 09:00 History icosapent ethyl 1 gram capsule 2 g PO BID 06/18/24 02/04/25 02/04/25 09:00 History losartan 50 mg tablet 50 mg PO DAILY 06/18/24 02/04/25 02/04/25 09:00 History oxcarbazepine 150 mg tablet 150 mg PO DAILY 06/18/24 02/04/25 02/04/25 09:00 History tirzepatide 15 mg/0.5 mL 15 mg subcut TH 06/18/24 02/04/25 01/31/25 History subcutaneous pen injector (Lurdes) aspirin 81 mg chewable tablet 1 tab PO QPM 02/04/25 02/04/25 02/04/25 09:00 History gabapentin 800 mg tablet 800 mg PO TID 02/04/25 02/04/25 02/04/25 09:00 History rosuvastatin 40 mg tablet 40 mg PO BEDTIME 02/04/25 02/04/25 02/04/25 09:00 History Physical Exam Vital Signs: Vital Signs: Last Vital Signs Temp 97.5 F 02/05/25 08:12 Pulse 69 02/05/25 08:12 Resp 18 02/05/25 08:12 BP 120/65 02/05/25 09:40 Pulse Ox 99 02/05/25 08:12 O2 Del Method Room Air 02/05/25 08:12 BMI result Body Mass Index 42.0 Neuro: Other: She is sleepy but easily arousable. She is oriented x3. She follows commands well. Cranial nerves 2-12 are normal. There is no obvious facial asymmetry. Tongue protrudes in the midline. She has spastic left hemiparesis and mild right upper extremity weakness. Right lower extremities at least 4+/5. Plantar response on the left is extensor on the right is flexor. Gait was not tested. Results Labs 02/05/25 03:31 02/05/25 03:31 Labs: Short CBC 02/04/25 02/05/25 Range/Units 13:01 03:31 WBC 6.0 8.0 (4.8-10.8) X10*3/uL Hgb 13.4 13.0 (12.0-16.0) g/dl Hct 40.2 40.0 (37.0-47.0) % Plt Count 170 D 170 (160-400) X10*3/uL BMP 02/04/25 02/05/25 13:01 03:31 Sodium 140 139 Potassium 4.0 3.7 Chloride 107 105 Carbon Dioxide 25 24 BUN 17 H 19 H Creatinine 0.48 L 0.56 Calcium 9.8 D 9.5 Liver Function 02/04/25 Range/Units 13:01 Total Bilirubin 0.6 (0.0-1.0) mg/dL AST 20 (5-31) U/L ALT 32 H (0-31) U/L Alkaline Phosphatase 77 (39-117) U/L Albumin 4.5 (3.5-5.0) g/dL Urine 02/04/25 Range/Units 20:32 Urine Color Yellow Urine Appearance Clear Urine pH 5.5 (5.0-9.0) Ur Specific [place] 1.015 (1.005-1.025) Urine Protein Negative (Neg-Trace) mg/dL Urine Glucose (UA) Negative (Negative) mg/dL Assessment and Plan (1) MRI of brain abnormal: Status: Acute Unusual pattern of MRI abnormalities on the current limited MRI. There is bilateral involvement of the brainstem particularly the cerebral peduncles the left geovany both lateral aspects of the thalamus and and the splenium of the corpus callosum. These are usually seen with metabolic abnormalities possibly neoplastic process unusually with demyelinating disorders. Autoimmune disorder can not be excluded. Recommendation: Repeat MRI with all sequences with and without gadolinium. Spinal fluid analysis for routine studies +MS studies including electrophoresis myelin basic protein and oligoclonal bands, autoimmune panel for paraneoplastic disorders. Labs to include MARISOL and sed rate. The patient has had a CTA and a carotid ultrasound which have not shown any significant vascular disease. Echocardiogram is being done while I was in the room and did not show any obvious abnormalities but official reading is pending. I have personally reviewed her MRI images going back to her initial presentation in May 2024. (2) Brain lesion: Status: Acute Procedures Date of Service Date of Service: 02/05/25
--- NOTE | 2025-02-05 11:56 | PC.NURSE ---
Patient medicated per the MAR. Patient able to take medications orally with water. Patient requesting to use commode, spoke with PT who stated 2-3 person assist to wheelchair, PT also stated patient became dizzy and diaphoretic upon standing. Educated patient and family about not getting out of bed. Offered bedpan, patient denied. New Purewick placed. Repositioned for comfort. Awaiting MRI / bed assignment.
[2025-02-05 12:34] LABS: Glucose, Whole Blood 111 mg/dL (60-115)
[2025-02-05] MEDS: oxyCODONE HCl Immed Release 5 MG TABLET PO (12:50)
--- NOTE | 2025-02-05 13:55 | MHC.CM.PN ---
Marta 02/05/25, Pt. has 2 [employer] for 50 hrs per week. She has DME of: walker, cane, commode, shower chair. She has services from [facility] to help her get the medical equipment. PT and OT rec. STR and AR, CM discussed this with pt. and she said she wants to go home instead. DCP: home with services, CM to follow for DC needs.
[2025-02-05] MEDS: diazePAM 10 MG/2 ML CARTRIDGE 2.5 MG IVPUSH (16:06)
--- NOTE | 2025-02-05 16:25 | PC.NURSE ---
Patient stated she had difficulty in MRI in the past, became claustrophobic. Patient medicated with Valium prior to MRI. Transport brought to MRI.
--- NOTE | 2025-02-05 16:26 | PC.NURSE ---
LP to be performed tomorrow at approx 0800.
--- NOTE | 2025-02-05 16:49 | HO.PM.IMPN ---
Subjective Subjective Date of Service: 02/05/25 Interval History: abnormal mri Review of Systems Right hand weakness seems to be improving No new complaints Physical Exam Exam: Exam: Appearance: Alert.? Oriented X3.? cvs: [id number], [id number] , no murmur res: clear to auscultation ,no rhonchii or wheezing abd: no rebound or guarding ,nt, bs present. ext pulses present , no cyanosis . neuro: Has left-sided weakness old Right hand weakness seems to be improving Vital Signs: Vital Signs: Last Vital Signs Temp 97.5 F 02/05/25 08:12 Pulse 79 02/05/25 12:30 Resp 18 02/05/25 12:30 BP 129/79 02/05/25 12:30 Pulse Ox 94 02/05/25 12:30 O2 Del Method Room Air 02/05/25 12:30 BMI result Body Mass Index 42.0 Objective Data Active Medications Acetaminophen (Acetaminophen 325 Mg Tablet) 975 mg PO Q6H PRN PRN Reason: Pain, Mild 1-3,fever,headache Albuterol Sulfate (Albuterol Sulfate (0.083%) 2.5 Mg/3 Ml Vial.Neb) 2.5 mg INHALE Q4H PRN PRN Reason: shortness of breath or wheezing Albuterol Sulfate (Albuterol Sulfate 90 Mcg 8 Gm Inhaler) 2 puff INHALE Q4H PRN PRN Reason: Wheezing Aspirin (Aspirin 81 Mg Tab.Chew) 81 mg PO BEDTIME [facility] Last Admin: 02/04/25 23:18 Dose: 81 mg Documented By: CHRISTY Atorvastatin Calcium (Atorvastatin Calcium 80 Mg Tablet) 80 mg PO BEDTIME [facility] Last Admin: 02/04/25 23:19 Dose: 80 mg Documented By: CHRISTY Calcium Carbonate (Calcium Carbonate 750 Mg Tab.Chew) 750 mg PO Q4H PRN PRN Reason: Heartburn Clonidine HCl (Clonidine Hcl 0.1 Mg Tablet) 0.1 mg PO BEDTIME [facility]; Protocol Dextrose (Dextrose 50 % 25 Gm/50 Ml Syringe) 25 gm IVPUSH Q15M PRN; Protocol PRN Reason: per Hypoglycemia Standing Ord. Ezetimibe (Ezetimibe 10 Mg Tablet) 10 mg PO DAILY [facility] Last Admin: 02/05/25 09:43 Dose: 10 mg Documented By: LOPEZ Famotidine (Famotidine 20 Mg Tablet) 20 mg PO BID [facility] Last Admin: 02/05/25 09:43 Dose: 20 mg Documented By: LOPEZ Fluticasone/Vilanterol (Fluticasone/Vilanterol 100/25 Blst.W.Dev) 1 puff INHALE RDAILY [facility] Last Admin: 02/05/25 11:46 Dose: Not Given Documented By: LOPEZ Non-Admin Reason: Not In Room Furosemide (Furosemide 20 Mg Tablet) 20 mg PO DAILY [facility]; Protocol Last Admin: 02/05/25 09:43 Dose: 20 mg Documented By: LOPEZ Gabapentin (Gabapentin 400 Mg Capsule) 800 mg PO TID [facility] Last Admin: 02/05/25 09:43 Dose: 800 mg Documented By: LOPEZ Glucose (Glucose Gel 15 Gm Gel..Gram.) 15 gm PO Q15M PRN; Protocol PRN Reason: per Hypoglycemia Standing Ord. Insulin Glargine (Insulin Glargine,Hum.Rec.Anlog 100 Unit/Ml 10 Ml Vial) 35 unit SUBCUT BEDTIME [facility] Insulin Human Lispro (Insulin Lispro 100 Unit/Ml 3 Ml Vial) 0 unit SUBCUT QIDACHS [facility]; Protocol Last Admin: 02/05/25 12:51 Dose: Not Given Documented By: LOPEZ Non-Admin Reason: No Insulin Coverage Loratadine (Loratadine 10 Mg Tablet) 10 mg PO DAILY [facility] Last Admin: 02/05/25 09:43 Dose: 10 mg Documented By: LOPEZ Losartan Potassium (Losartan Potassium 50 Mg Tablet) 50 mg PO DAILY [facility]; Protocol Last Admin: 02/05/25 09:40 Dose: 50 mg Documented By: LOPEZ Magnesium Hydroxide (Milk Of Magnesia 30 Ml Oral.Susp) 30 ml PO DAILY PRN PRN Reason: Constipation Last Admin: 02/04/25 23:22 Dose: 30 ml Documented By: CHRISTY Melatonin (Melatonin 3 Mg Tablet) 6 mg PO BEDTIME PRN PRN Reason: Insomnia Metoprolol Succinate (Metoprolol Succinate Er 25 Mg Tab.Er.24h) 25 mg PO BEDTIME [facility]; Protocol Montelukast Sodium (Montelukast Sodium 10 Mg Tablet) 10 mg PO BEDTIME [facility] Ondansetron HCl (Ondansetron Hcl 4 Mg/2 Ml Vial) 4 mg IVPUSH Q8H PRN PRN Reason: Nausea and Vomiting Oxcarbazepine (Oxcarbazepine 150 Mg Tablet) 150 mg PO DAILY [facility] Last Admin: 02/05/25 09:43 Dose: 150 mg Documented By: LOPEZ Oxcarbazepine (Oxcarbazepine 150 Mg Tablet) 450 mg PO BEDTIME [facility] Last Admin: 02/04/25 23:18 Dose: 450 mg Documented By: CHRISTY Oxycodone HCl (Oxycodone Hcl Immed Release 5 Mg Tablet) 5 mg PO Q6H PRN PRN Reason: Pain, Severe (Pain Scale 7-10) Last Admin: 02/05/25 12:50 Dose: 5 mg Documented By: LOPEZ Paroxetine HCl (Paroxetine Hcl 40 Mg Tablet) 40 mg PO BEDTIME [facility] Last Admin: 02/04/25 23:19 Dose: 40 mg Documented By: CHRISTY Pyridoxine HCl (Pyridoxine Hcl (Vitamin B6) 50 Mg Tablet) 100 mg PO DAILY [facility] Last Admin: 02/05/25 09:43 Dose: 100 mg Documented By: LOPEZ Sodium Chloride (0.9 % Sodium Chloride Flush 3 Ml Syringe) [facility] Last Admin: 02/05/25 08:18 Dose: 3 ml Documented By: LOPEZ Tramadol HCl (Tramadol Hcl 50 Mg Tablet) 50 mg PO Q6H PRN PRN Reason: Pain, Moderate(Pain Scale 4-6) Labs 02/05/25 03:31 02/05/25 03:31 Labs: Laboratory Results - last 24 hr 02/04/25 02/04/25 02/05/25 20:32 21:35 03:31 MCV 83.7 MCH 27.2 MCHC 32.5 RDW 13.0 Plt Count 170 MPV 11.7 Immature Gran % (Auto) 0.3 Neut % (Auto) 52.9 Lymph % (Auto) 35.2 Becker % (Auto) 8.9 Eos % (Auto) 2.1 Baso % (Auto) 0.6 Lymph # (Auto) 2.8 Becker # (Auto) 0.7 Eos # (Auto) 0.2 Baso # (Auto) 0.1 Abs Immat Gran (auto) 0.02 Absolute Neuts (auto) 4.2 Absolute Nucleated RBC 0.000 Nucleated RBC % (auto) 0.0 ESR 18 Anion Gap 14 Estim Creat Clear Calc 127.1 Estimated GFR > 60 POC Glucose Random Glucose 106 Calcium 9.5 Triglycerides 129 Cholesterol 153 LDL Cholesterol, Calc 93 HDL Cholesterol 35 L Vitamin B12 364 Folate 11.1 TSH 0.60 Urine Color Yellow Urine Appearance Clear Urine pH 5.5 Ur Specific [place] 1.015 Urine Protein Negative Urine Glucose (UA) Negative Urine Ketones Negative Urine Blood Negative Urine Nitrite Negative Ur Leukocyte Esterase Negative 02/05/25 02/05/25 08:24 12:20 MCV MCH MCHC RDW Plt Count MPV Immature Gran % (Auto) Neut % (Auto) Lymph % (Auto) [place] % (Auto) Eos % (Auto) Baso % (Auto) Lymph # (Auto) [place] # (Auto) Eos # (Auto) Baso # (Auto) Abs Immat Gran (auto) Absolute Neuts (auto) Absolute Nucleated RBC Nucleated RBC % (auto) ESR Anion Gap Estim Creat Clear Calc Estimated GFR POC Glucose 117 H 111 Random Glucose Calcium Triglycerides Cholesterol LDL Cholesterol, Calc HDL Cholesterol Vitamin B12 Folate TSH Urine Color Urine Appearance Urine pH Ur Specific [place] Urine Protein Urine Glucose (UA) Urine Ketones Urine Blood Urine Nitrite Ur Leukocyte Esterase Assessment and Plan (1) Weakness: Status: Acute Assessment and Plan: 59-year-old Yakut-speaking female with a past medical history significant for COPD, seizure disorder, type 2 diabetes, brain lesion, CAD, lymphoma, DRE, tobacco use, morbid obesity, hyperlipidemia and GERD, who presented to the ED due to sudden headache and right hand weakness beginning yesterday around 18:00. R hand weakness/intermittent headache monitor on tele echo pending TSH, B12 normal neuro checks PT/OT - bedside swallow seen by neuro:Unusual pattern of MRI abnormalities on the current limited MRI. There is bilateral involvement of the brainstem particularly the cerebral peduncles the left geovany both lateral aspects of the thalamus and and the splenium of the corpus callosum. These are usually seen with metabolic abnormalities possibly neoplastic process unusually with demyelinating disorders. Autoimmune disorder can not be excluded. plan: Repeat MRI with all sequences with and without gadolinium-ordered -got more images before patient stopped mri, if still not adequate may need repeat mri in am. Spinal fluid analysis for routine studies +MS studies including electrophoresis myelin basic protein and oligoclonal bands, autoimmune panel for paraneoplastic disorders. Labs to include MARISOL and sed rate. The patient has had a CTA and a carotid ultrasound which have not shown any significant vascular disease. chest pain - EKG/trop/CXR negative - monitor on tele moderate COPD, no acute exacerbation - continue home therapies seizure disorder - oxcarbazepine T2DM - SSI - Lantus -- pt reported 50U QHS will need re-verified as confliciting info in chart - hold metformin - diabetic diet DRE - CPAP at bedtime morbid obestiy - BMI 42.0 , weight loss encouraged HLD - lipid panel - continue home therapies GERD - continue home therapies med rec pending DNR/DNI VTE prophy: SCDs pending MRI ongoing need R hand weakness requiring admission for observation for further evaluation, monitoring and neurology workup and follow up Quality Stroke Does the patient have a stroke diagnosis?: No VTE Prior VTE?: No VTE Risk Level:: Medical - moderate - high VTE Device Contraindication: N/A - Device Ordered VTE Drug Contraindication: Treatment Not Indicated
[2025-02-05 17:29] LABS: Glucose, Whole Blood 95 mg/dL (60-115)
--- NOTE | 2025-02-05 19:26 | HO.NURTONUR ---
Pt sent from outpatient clinic with complaint of right side weakness, headache, dizziness and chest pain that started yesterday. Pt states weakness in the right side has persisted since it began. Pt unable to grasp things with her hand. Pt has chronic left sided weakness from previous stroke. Labs in the ED revealed elevated BUN- 19, HDL- 35,otherwise labs unremarkable. EKG- NSR. Pt is roy x3 able to make her needs known. Pt has 20G IV in RAC and has been medicated per apr. Pt following up with neurology and pending MRI results at this time. Pt being admitted for observation and further evaluation, monitoring and neurology workup.
[2025-02-05 20:58] LABS: Glucose, Whole Blood 123 mg/dL (60-115)
[2025-02-05] MEDS: Metoprolol Succinate ER 25 MG TAB.ER.24H PO (21:01)
[2025-02-05] MEDS: PARoxetine HCL 40 MG TABLET PO (21:02)
[2025-02-06 03:41] VITALS: BP 114/73; PULSE 75; RESP 18; TEMP 36.2; O2SAT 92
[2025-02-06] MEDS: 0.9 % Sodium Chloride Flush 3 ML SYRINGE IVFLUSH ×2 (05:06→10:56)
[2025-02-06 06:51] LABS: MANUAL DIFF FLAG NO
[2025-02-06 07:03] VITALS: BP 108/58; PULSE 65; RESP 18; TEMP 36.3; O2SAT 94
[2025-02-06 07:06] LABS: Hematocrit 39.8 % (37.0-47.0); Hemoglobin 12.9 g/dl (12.0-16.0); Imm Gran Abs Auto 0.02 X10*3/uL (0.00-0.03); Imm Gran Pct Auto 0.3 % (0.0-0.4); Lymphocytes Absolute Auto 2.2 X10*3/uL (1.2-4.9); Mean Corpuscular HGB Conc 32.4 g/dl (31.0-35.0); Mean Corpuscular Hemoglobin 27.1 pg (27.0-33.0); Mean Corpuscular Volume 83.6 fL (80.0-98.0); NRBC Abs Auto 0.000 X10*3/uL (0.0-0.012); NRBC Pct Auto 0.0 /100WBC (0.0-0.2); Platelet Count 176 X10*3/uL (160-400); Red Blood Count 4.76 X10*6/uL (4.20-5.50); White Blood Count 6.8 X10*3/uL (4.8-10.8)
[2025-02-06 07:12] LABS: Anion Gap 13 (12-20); Blood Urea Nitrogen 27 mg/dL (9-16); Calcium 9.1 mg/dL (8.4-10.2); Carbon Dioxide 27 mmol/L (22-29); Chloride 103 mmol/L (96-108); Creatinine Clr Calc Pharmacy 122.7; Estimated Glomerular Filt Rate > 60; Potassium 3.8 mmol/L (3.3-5.1); Sodium 139 mmol/L (135-145)
[2025-02-06 07:25] LABS: Glucose, Whole Blood 128 mg/dL (60-115)
[2025-02-06 10:05] LABS: Oligoclonal Serum Yes
--- NOTE | 2025-02-06 10:29 | MHC.CM.PN ---
Per [facility], Patient is scheduled for a LP today.
[2025-02-06 10:32] LABS: Red Blood Cell CSF 217 MM*3
[2025-02-06 10:33] LABS: CSF Other Cells % 2 %; Lymphocytes CSF 73 %; Neutrophils CSF 1 %
[2025-02-06 10:35] LABS: White Blood Cell CSF 24 MM*3
[2025-02-06] MEDS: oxyCODONE HCl Immed Release 5 MG TABLET PO ×2 (10:53→19:27)
[2025-02-06 11:05] LABS: Glucose, Whole Blood 121 mg/dL (60-115)
[2025-02-06 11:22] VITALS: BP 117/67; PULSE 69; RESP 18; TEMP 36.1; O2SAT 97
--- NOTE | 2025-02-06 11:58 | MHC.CM.PN ---
CM met with Patient and her Daughter/HCP/Sarita to discuss PT's recommendation for STR; Patient prefers to go home, resume [employer] services and add [facility] for home PT. MD is aware and MARY KAY will follow.
--- NOTE | 2025-02-06 12:08 | P.PNIM_ITS ---
Subjective Subjective Date of Service: 02/06/25 Review of Systems Review of Systems: Yes Unobtainable due to mental condition Physical Exam 2 Exam: Exam: Appearance: Alert.? Oriented X3.? cvs: rrr, [id number] , no murmur res: clear to auscultation ,no rhonchii or wheezing abd: no rebound or guarding ,nt, bs present. ext pulses present , no cyanosis . neuro: Has left-sided weakness old Right hand weakness seems to be improving Vital Signs: Vital Signs: Last Vital Signs Temp 97.0 F 02/06/25 11:22 Pulse 69 02/06/25 11:22 Resp 18 02/06/25 11:22 BP 117/67 02/06/25 11:22 Pulse Ox 97 02/06/25 11:22 O2 Del Method Room Air 02/06/25 11:22 BMI result Body Mass Index 42.0 Objective Data Active Medications Acetaminophen (Acetaminophen 325 Mg Tablet) 975 mg PO Q6H PRN PRN Reason: Pain, Mild 1-3,fever,headache Last Admin: 02/05/25 21:00 Dose: 975 mg Documented By: FALGUNI Albuterol Sulfate (Albuterol Sulfate (0.083%) 2.5 Mg/3 Ml Vial.Neb) 2.5 mg INHALE Q4H PRN PRN Reason: shortness of breath or wheezing Albuterol Sulfate (Albuterol Sulfate 90 Mcg 8 Gm Inhaler) 2 puff INHALE Q4H PRN PRN Reason: Wheezing Aspirin (Aspirin 81 Mg Tab.Chew) 81 mg PO BEDTIME [facility] Last Admin: 02/05/25 21:03 Dose: 81 mg Documented By: FALGUNI Atorvastatin Calcium (Atorvastatin Calcium 80 Mg Tablet) 80 mg PO BEDTIME [facility] Last Admin: 02/05/25 21:02 Dose: 80 mg Documented By: FALGUNI Calcium Carbonate (Calcium Carbonate 750 Mg Tab.Chew) 750 mg PO Q4H PRN PRN Reason: Heartburn Clonidine HCl (Clonidine Hcl 0.1 Mg Tablet) 0.1 mg PO BEDTIME [facility]; Protocol Last Admin: 02/05/25 21:02 Dose: 0.1 mg Documented By: FALGUNI Dextrose (Dextrose 50 % 25 Gm/50 Ml Syringe) 25 gm IVPUSH Q15M PRN; Protocol PRN Reason: per Hypoglycemia Standing Ord. Ezetimibe (Ezetimibe 10 Mg Tablet) 10 mg PO DAILY [facility] Last Admin: 02/06/25 10:54 Dose: 10 mg Documented By: DONTA Famotidine (Famotidine 20 Mg Tablet) 20 mg PO BID [facility] Last Admin: 02/06/25 10:54 Dose: 20 mg Documented By: DONTA Fluticasone/Vilanterol (Fluticasone/Vilanterol Blst.W.Dev) 1 puff INHALE RDAILY [facility] Last Admin: 02/06/25 07:41 Dose: Not Given Documented By: ALTHEA Non-Admin Reason: Off Unit: Surgery Furosemide (Furosemide 20 Mg Tablet) 20 mg PO DAILY [facility]; Protocol Last Admin: 02/06/25 10:54 Dose: 20 mg Documented By: DONTA Gabapentin (Gabapentin 400 Mg Capsule) 800 mg PO TID [facility] Last Admin: 02/06/25 10:54 Dose: 800 mg Documented By: DONTA Glucose (Glucose Gel 15 Gm Gel..Gram.) 15 gm PO Q15M PRN; Protocol PRN Reason: per Hypoglycemia Standing Ord. Insulin Glargine (Insulin Glargine,Hum.Rec.Anlog 100 Unit/Ml 10 Ml Vial) 35 unit SUBCUT BEDTIME [facility] Last Admin: 02/05/25 22:57 Dose: Not Given Documented By: FALGUNI Non-Admin Reason: Physician Held Med Insulin Human Lispro (Insulin Lispro 100 Unit/Ml 3 Ml Vial) 0 unit SUBCUT QIDACHS [facility]; Protocol Last Admin: 02/06/25 11:40 Dose: Not Given Documented By: DONTA Non-Admin Reason: No Insulin Coverage Loratadine (Loratadine 10 Mg Tablet) 10 mg PO DAILY [facility] Last Admin: 02/06/25 10:54 Dose: 10 mg Documented By: DONTA Losartan Potassium (Losartan Potassium 50 Mg Tablet) 50 mg PO DAILY [facility]; Protocol Last Admin: 02/06/25 10:54 Dose: 50 mg Documented By: DONTA Magnesium Hydroxide (Milk Of Magnesia 30 Ml Oral.Susp) 30 ml PO DAILY PRN PRN Reason: Constipation Last Admin: 02/04/25 23:22 Dose: 30 ml Documented By: CHRISTY Melatonin (Melatonin 3 Mg Tablet) 6 mg PO BEDTIME PRN PRN Reason: Insomnia Metoprolol Succinate (Metoprolol Succinate Er 25 Mg Tab.Er.24h) 25 mg PO BEDTIME [facility]; Protocol Last Admin: 02/05/25 21:01 Dose: 25 mg Documented By: FALGUNI Montelukast Sodium (Montelukast Sodium 10 Mg Tablet) 10 mg PO BEDTIME [facility] Last Admin: 02/05/25 21:03 Dose: 10 mg Documented By: FALGUNI Ondansetron HCl (Ondansetron Hcl 4 Mg/2 Ml Vial) 4 mg IVPUSH Q8H PRN PRN Reason: Nausea and Vomiting Oxcarbazepine (Oxcarbazepine 150 Mg Tablet) 150 mg PO DAILY [facility] Last Admin: 02/06/25 10:54 Dose: 150 mg Documented By: DONTA Oxcarbazepine (Oxcarbazepine 150 Mg Tablet) 450 mg PO BEDTIME [facility] Last Admin: 02/05/25 21:01 Dose: 450 mg Documented By: FALGUNI Oxycodone HCl (Oxycodone Hcl Immed Release 5 Mg Tablet) 5 mg PO Q6H PRN PRN Reason: Pain, Severe (Pain Scale 7-10) Last Admin: 02/06/25 10:53 Dose: 5 mg Documented By: DONTA Paroxetine HCl (Paroxetine Hcl 40 Mg Tablet) 40 mg PO BEDTIME [facility] Last Admin: 02/05/25 21:02 Dose: 40 mg Documented By: FALGUNI Pyridoxine HCl (Pyridoxine Hcl (Vitamin B6) 50 Mg Tablet) 100 mg PO DAILY [facility] Last Admin: 02/06/25 10:54 Dose: 100 mg Documented By: DONTA Sodium Chloride (0.9 % Sodium Chloride Flush 3 Ml Syringe) 3 ml IVFSH [facility] Last Admin: 02/06/25 10:56 Dose: 3 ml Documented By: DOTNA Tramadol HCl (Tramadol Hcl 50 Mg Tablet) 50 mg PO Q6H PRN PRN Reason: Pain, Moderate(Pain Scale 4-6) Last Admin: 02/06/25 06:09 Dose: 50 mg Documented By: FALGUNI Labs 02/06/25 06:32 02/06/25 06:32 Labs: Laboratory Results - last 24 hr 02/05/25 02/05/25 02/05/25 03:31 12:20 17:20 MCV MCH MCHC RDW Plt Count MPV Immature Gran % (Auto) Neut % (Auto) Lymph % (Auto) [place] % (Auto) Eos % (Auto) Baso % (Auto) Lymph # (Auto) [place] # (Auto) Eos # (Auto) Baso # (Auto) Abs Immat Gran (auto) Absolute Neuts (auto) Absolute Nucleated RBC Nucleated RBC % (auto) ESR 18 Anion Gap Estim Creat Clear Calc Estimated GFR POC Glucose 111 95 Random Glucose Calcium CSF Tube Number CSF Volume CSF Appearance CSF Color CSF WBC CSF RBC CSF Neutrophils CSF Lymphocytes CSF Monocytes % CSF Other Cells % CSF Appearance (b) CSF Glucose CSF Total Protein CSF C.neoform/gat PCR CSF CMV DNA (PCR) CSF Enterovirus (PCR) CSF E. coli K1 (PCR) CSF H. influenzae (PCR) CSF HSV I (PCR) CSF HSV II (PCR) CSF HHV 6 (PCR) CSF L.monocytogenes PCR CSF N. meningitidis PCR CSF Parechovirus (PCR) CSF S. agalactiae (PCR) CSF S. pneumoniae (PCR) CSF VZV (PCR) 02/05/25 02/06/25 02/06/25 20:51 06:32 07:08 MCV 83.6 MCH 27.1 MCHC 32.4 RDW 13.1 Plt Count 176 MPV 11.5 Immature Gran % (Auto) 0.3 Neut % (Auto) 56.1 Lymph % (Auto) 32.7 [place] % (Auto) 7.5 Eos % (Auto) 2.7 Baso % (Auto) 0.7 Lymph # (Auto) 2.2 [place] # (Auto) 0.5 Eos # (Auto) 0.2 Baso # (Auto) 0.1 Abs Immat Gran (auto) 0.02 Absolute Neuts (auto) 3.8 Absolute Nucleated RBC 0.000 Nucleated RBC % (auto) 0.0 ESR Anion Gap 13 Estim Creat Clear Calc 122.7 Estimated GFR > 60 POC Glucose 123 H 128 H Random Glucose 126 H Calcium 9.1 CSF Tube Number CSF Volume CSF Appearance CSF Color CSF WBC CSF RBC CSF Neutrophils CSF Lymphocytes CSF Monocytes % CSF Other Cells % CSF Appearance (b) CSF Glucose CSF Total Protein CSF C.neoform/gat PCR CSF CMV DNA (PCR) CSF Enterovirus (PCR) CSF E. coli K1 (PCR) CSF H. influenzae (PCR) CSF HSV I (PCR) CSF HSV II (PCR) CSF HHV 6 (PCR) CSF L.monocytogenes PCR CSF N. meningitidis PCR CSF Parechovirus (PCR) CSF S. agalactiae (PCR) CSF S. pneumoniae (PCR) CSF VZV (PCR) 02/06/25 02/06/25 02/06/25 08:30 08:30 11:02 MCV MCH MCHC RDW Plt Count MPV Immature Gran % (Auto) Neut % (Auto) Lymph % (Auto) [place] % (Auto) Eos % (Auto) Baso % (Auto) Lymph # (Auto) [place] # (Auto) Eos # (Auto) Baso # (Auto) Abs Immat Gran (auto) Absolute Neuts (auto) Absolute Nucleated RBC Nucleated RBC % (auto) ESR Anion Gap Estim Creat Clear Calc Estimated GFR POC Glucose 121 H Random Glucose Calcium CSF Tube Number 1 4 CSF Volume 4.0 CSF Appearance CLEAR CSF Color COLORLESS CSF WBC 24 H* CSF RBC 217 CSF Neutrophils 1 CSF Lymphocytes 73 CSF Monocytes % 24 CSF Other Cells % 2 CSF Appearance (b) Bloody CSF Glucose 65 CSF Total Protein 44.5 CSF C.neoform/gat PCR Not Detected CSF CMV DNA (PCR) Not Detected CSF Enterovirus (PCR) Not Detected CSF E. coli K1 (PCR) Not Detected CSF H. influenzae (PCR) Not Detected CSF HSV I (PCR) Not Detected CSF HSV II (PCR) Not Detected CSF HHV 6 (PCR) Not Detected CSF L.monocytogenes PCR Not Detected CSF N. meningitidis PCR Not Detected CSF Parechovirus (PCR) Not Detected CSF S. agalactiae (PCR) Not Detected CSF S. pneumoniae (PCR) Not Detected CSF VZV (PCR) Not Detected Microbiology Microbiology Results: Microbiology 02/06/25 08:30 Gram Stain - Final Cerebrospinal Fluid Fluid Description - Final Assessment and Plan (1) Diabetes mellitus: Status: Acute Plan 59F PMH COPD, epilepsy, DM, CAD, lymphoma, DRE, morbid obesity, hld, GERD, presented with right hand weakness Right hand weakness MRI with bilateral brainstem abnormality concerning for autoimmune disorder LP today, follow up results, follow up Neurology COPD Continue inhalers Epilepsy Oxcarbazepine Diabetes Insulin sliding scale DRE CPAP at night Morbid obesity Weight loss recommended DVT prophylaxis-mechanical due to late subacute subdural hemorrhage DNR/DNI reason for continued hospitalization: Due to ongoing neurological deficits and need for further investigation to determine course of management and Neurology follow up she will be changed to inpatient status Quality Stroke Does the patient have a stroke diagnosis?: No VTE Prior VTE?: No VTE Risk Level:: Medical - moderate - high VTE Device Contraindication: N/A - Device Ordered VTE Drug Contraindication: Treatment Not Indicated
[2025-02-06 15:59] VITALS: BP 137/69; PULSE 63; RESP 16; TEMP 36.2; O2SAT 93
[2025-02-06 17:00] LABS: Glucose, Whole Blood 101 mg/dL (60-115)
[2025-02-06 19:19] VITALS: BP 117/65; PULSE 74; RESP 17; TEMP 36.2; O2SAT 98
[2025-02-06 20:18] LABS: Glucose, Whole Blood 143 mg/dL (60-115)
[2025-02-06] MEDS: Metoprolol Succinate ER 25 MG TAB.ER.24H PO (21:28)
[2025-02-06] MEDS: PARoxetine HCL 40 MG TABLET PO (21:29)
[2025-02-06] MEDS: Insulin Glargine,Hum.rec.anlog 100 UNIT/ML 10 ML VIAL 35 UNIT SUBCUT (21:31)
[2025-02-06 23:49] VITALS: BP 110/57; PULSE 64; RESP 16; TEMP 36; O2SAT 97
[2025-02-07] VITALS (7 sets, daily range): BP systolic 91–125; BP diastolic 50–69; PULSE 61–82; RESP 16–20; TEMP 36.1–36.4; O2SAT 92–99
[2025-02-07 02:38] LABS: Glucose, Whole Blood 113 mg/dL (60-115)
[2025-02-07] MEDS: 0.9 % Sodium Chloride Flush 3 ML SYRINGE IVFLUSH ×3 (05:57→20:50)
[2025-02-07 07:21] LABS: Hematocrit 39.1 % (37.0-47.0); Hemoglobin 12.8 g/dl (12.0-16.0); Mean Corpuscular HGB Conc 32.7 g/dl (31.0-35.0); Mean Corpuscular Hemoglobin 27.6 pg (27.0-33.0); Mean Corpuscular Volume 84.3 fL (80.0-98.0); NRBC Abs Auto 0.000 X10*3/uL (0.0-0.012); NRBC Pct Auto 0.0 /100WBC (0.0-0.2); Platelet Count 173 X10*3/uL (160-400); Red Blood Count 4.64 X10*6/uL (4.20-5.50); White Blood Count 6.9 X10*3/uL (4.8-10.8)
[2025-02-07 07:24] LABS: Glucose, Whole Blood 113 mg/dL (60-115)
[2025-02-07 08:04] LABS: Alanine Aminotransferase 38 U/L (0-31); Albumin Level 3.9 g/dL (3.5-5.0); Alkaline Phosphatase 71 U/L (39-117); Anion Gap 11 (12-20); Aspartate Amino Transferase 30 U/L (5-31); Blood Urea Nitrogen 31 mg/dL (9-16); Calcium 9.0 mg/dL (8.4-10.2); Carbon Dioxide 27 mmol/L (22-29); Chloride 103 mmol/L (96-108); Creatinine Clr Calc Pharmacy 127.1; Estimated Glomerular Filt Rate > 60; Magnesium 1.9 mg/dL (1.6-2.6); Potassium 3.9 mmol/L (3.3-5.1); Sodium 137 mmol/L (135-145); Total Protein 6.1 g/dL (6.5-8.0)
[2025-02-07] MEDS: Fluticasone/Vilanterol 100/25 BLST.W.DEV 1 PUFF INHALE (08:19)
--- NOTE | 2025-02-07 10:54 | P.PNIM_ITS ---
Subjective Subjective Date of Service: 02/07/25 Review of Systems Review of Systems: Yes Unobtainable due to mental condition Physical Exam 2 Exam: Exam: She is sleepy but easily arousable. She is oriented x3. She follows commands well. Cranial nerves 2-12 are normal. There is no obvious facial asymmetry. Tongue protrudes in the midline. She has spastic left hemiparesis and mild right upper extremity weakness. Right lower extremities at least 4+/5. Plantar response on the left is extensor on the right is flexor. Gait was not tested. Vital Signs: Vital Signs: Last Vital Signs Temp 97.6 F 02/07/25 07:30 Pulse 63 02/07/25 08:20 Resp 16 02/07/25 08:20 BP 112/59 L 02/07/25 07:30 Pulse Ox 98 02/07/25 07:30 O2 Del Method Room Air 02/07/25 07:30 BMI result Body Mass Index 42.0 Objective Data Active Medications Acetaminophen (Acetaminophen 325 Mg Tablet) 975 mg PO Q6H PRN PRN Reason: Pain, Mild 1-3,fever,headache Last Admin: 02/05/25 21:00 Dose: 975 mg Documented By: FALGUNI Albuterol Sulfate (Albuterol Sulfate (0.083%) 2.5 Mg/3 Ml Vial.Neb) 2.5 mg INHALE Q4H PRN PRN Reason: shortness of breath or wheezing Albuterol Sulfate (Albuterol Sulfate 90 Mcg 8 Gm Inhaler) 2 puff INHALE Q4H PRN PRN Reason: Wheezing Aspirin (Aspirin 81 Mg Tab.Chew) 81 mg PO BEDTIME [facility] Last Admin: 02/06/25 21:29 Dose: 81 mg Documented By: FALGUNI Atorvastatin Calcium (Atorvastatin Calcium 80 Mg Tablet) 80 mg PO BEDTIME [facility] Last Admin: 02/06/25 21:29 Dose: 80 mg Documented By: FALGUNI Calcium Carbonate (Calcium Carbonate 750 Mg Tab.Chew) 750 mg PO Q4H PRN PRN Reason: Heartburn Clonidine HCl (Clonidine Hcl 0.1 Mg Tablet) 0.1 mg PO BEDTIME [facility]; Protocol Last Admin: 02/06/25 21:29 Dose: 0.1 mg Documented By: FALGUNI Dextrose (Dextrose 50 % 25 Gm/50 Ml Syringe) 25 gm IVPUSH Q15M PRN; Protocol PRN Reason: per Hypoglycemia Standing Ord. Ezetimibe (Ezetimibe 10 Mg Tablet) 10 mg PO DAILY [facility] Last Admin: 02/07/25 08:59 Dose: 10 mg Documented By: JIMENA Famotidine (Famotidine 20 Mg Tablet) 20 mg PO BID [facility] Last Admin: 02/07/25 09:00 Dose: 20 mg Documented By: JIMENA Fluticasone/Vilanterol (Fluticasone/Vilanterol 100/25 Blst.W.Dev) 1 puff INHALE RDAILY [facility] Last Admin: 02/07/25 08:19 Dose: 1 puff Documented By: GILBERT Furosemide (Furosemide 20 Mg Tablet) 20 mg PO DAILY [facility]; Protocol Last Admin: 02/07/25 09:00 Dose: 20 mg Documented By: JIMENA Gabapentin (Gabapentin 400 Mg Capsule) 800 mg PO TID [facility] Last Admin: 02/07/25 09:00 Dose: 800 mg Documented By: JIMENA Glucose (Glucose Gel 15 Gm Gel..Gram.) 15 gm PO Q15M PRN; Protocol PRN Reason: per Hypoglycemia Standing Ord. Insulin Glargine (Insulin Glargine,Hum.Rec.Anlog 100 Unit/Ml 10 Ml Vial) 35 unit SUBCUT BEDTIME [facility] Last Admin: 02/06/25 21:31 Dose: 35 unit Documented By: FALGUNI Insulin Human Lispro (Insulin Lispro 100 Unit/Ml 3 Ml Vial) 0 unit SUBCUT QIDACHS [facility]; Protocol Last Admin: 02/07/25 08:14 Dose: Not Given Documented By: JIMENA Non-Admin Reason: No Insulin Coverage Loratadine (Loratadine 10 Mg Tablet) 10 mg PO DAILY [facility] Last Admin: 02/07/25 09:00 Dose: 10 mg Documented By: JIMENA Losartan Potassium (Losartan Potassium 50 Mg Tablet) 50 mg PO DAILY [facility]; Protocol Last Admin: 02/07/25 09:00 Dose: 50 mg Documented By: JIMENA Magnesium Hydroxide (Milk Of Magnesia 30 Ml Oral.Susp) 30 ml PO DAILY PRN PRN Reason: Constipation Last Admin: 02/04/25 23:22 Dose: 30 ml Documented By: CHRISTY Melatonin (Melatonin 3 Mg Tablet) 6 mg PO BEDTIME PRN PRN Reason: Insomnia Metoprolol Succinate (Metoprolol Succinate Er 25 Mg Tab.Er.24h) 25 mg PO BEDTIME [facility]; Protocol Last Admin: 02/06/25 21:28 Dose: 25 mg Documented By: FALGUNI Montelukast Sodium (Montelukast Sodium 10 Mg Tablet) 10 mg PO BEDTIME [facility] Last Admin: 02/06/25 21:29 Dose: 10 mg Documented By: FALGUNI Ondansetron HCl (Ondansetron Hcl 4 Mg/2 Ml Vial) 4 mg IVPUSH Q8H PRN PRN Reason: Nausea and Vomiting Oxcarbazepine (Oxcarbazepine 150 Mg Tablet) 150 mg PO DAILY [facility] Last Admin: 02/07/25 09:00 Dose: 150 mg Documented By: JIMENA Oxcarbazepine (Oxcarbazepine 150 Mg Tablet) 450 mg PO BEDTIME [facility] Last Admin: 02/06/25 21:29 Dose: 450 mg Documented By: FALGUNI Oxycodone HCl (Oxycodone Hcl Immed Release 5 Mg Tablet) 5 mg PO Q6H PRN PRN Reason: Pain, Severe (Pain Scale 7-10) Last Admin: 02/06/25 19:27 Dose: 5 mg Documented By: FALGUNI Paroxetine HCl (Paroxetine Hcl 40 Mg Tablet) 40 mg PO BEDTIME [facility] Last Admin: 02/06/25 21:29 Dose: 40 mg Documented By: FALGUNI Pyridoxine HCl (Pyridoxine Hcl (Vitamin B6) 50 Mg Tablet) 100 mg PO DAILY [facility] Last Admin: 02/07/25 08:58 Dose: 100 mg Documented By: JIMENA Sodium Chloride (0.9 % Sodium Chloride Flush 3 Ml Syringe) [facility] Last Admin: 02/07/25 09:00 Dose: 3 ml Documented By: JIMENA Tramadol HCl (Tramadol Hcl 50 Mg Tablet) 50 mg PO Q6H PRN PRN Reason: Pain, Moderate(Pain Scale 4-6) Last Admin: 02/06/25 06:09 Dose: 50 mg Documented By: FALGUNI Labs 02/07/25 07:10 02/07/25 07:10 Labs: Laboratory Results - last 24 hr 02/06/25 02/06/25 02/06/25 08:30 11:02 16:30 MCV MCH MCHC RDW Plt Count MPV Absolute Nucleated RBC Nucleated RBC % (auto) Anion Gap Estim Creat Clear Calc Estimated GFR POC Glucose 121 H 101 Random Glucose Calcium Magnesium Total Bilirubin Direct Bilirubin AST ALT Alkaline Phosphatase Total Protein Albumin CSF C.neoform/gat PCR Not Detected CSF CMV DNA (PCR) Not Detected CSF Enterovirus (PCR) Not Detected CSF E. coli K1 (PCR) Not Detected CSF H. influenzae (PCR) Not Detected CSF HSV I (PCR) Not Detected CSF HSV II (PCR) Not Detected CSF HHV 6 (PCR) Not Detected CSF L.monocytogenes PCR Not Detected CSF N. meningitidis PCR Not Detected CSF Parechovirus (PCR) Not Detected CSF S. agalactiae (PCR) Not Detected CSF S. pneumoniae (PCR) Not Detected CSF VZV (PCR) Not Detected 02/06/25 02/07/25 02/07/25 20:13 02:32 07:10 MCV 84.3 MCH 27.6 MCHC 32.7 RDW 13.1 Plt Count 173 MPV 11.3 Absolute Nucleated RBC 0.000 Nucleated RBC % (auto) 0.0 Anion Gap 11 L Estim Creat Clear Calc 127.1 Estimated GFR > 60 POC Glucose 143 H 113 Random Glucose 117 H Calcium 9.0 Magnesium 1.9 Total Bilirubin 0.7 Direct Bilirubin 0.3 AST 30 ALT 38 H Alkaline Phosphatase 71 Total Protein 6.1 L Albumin 3.9 CSF C.neoform/gat PCR CSF CMV DNA (PCR) CSF Enterovirus (PCR) CSF E. coli K1 (PCR) CSF H. influenzae (PCR) CSF HSV I (PCR) CSF HSV II (PCR) CSF HHV 6 (PCR) CSF L.monocytogenes PCR CSF N. meningitidis PCR CSF Parechovirus (PCR) CSF S. agalactiae (PCR) CSF S. pneumoniae (PCR) CSF VZV (PCR) 02/07/25 07:16 MCV MCH MCHC RDW Plt Count MPV Absolute Nucleated RBC Nucleated RBC % (auto) Anion Gap Estim Creat Clear Calc Estimated GFR POC Glucose 113 Random Glucose Calcium Magnesium Total Bilirubin Direct Bilirubin AST ALT Alkaline Phosphatase Total Protein Albumin CSF C.neoform/gat PCR CSF CMV DNA (PCR) CSF Enterovirus (PCR) CSF E. coli K1 (PCR) CSF H. influenzae (PCR) CSF HSV I (PCR) CSF HSV II (PCR) CSF HHV 6 (PCR) CSF L.monocytogenes PCR CSF N. meningitidis PCR CSF Parechovirus (PCR) CSF S. agalactiae (PCR) CSF S. 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
[2025-02-07 11:45] LABS: Glucose, Whole Blood 114 mg/dL (60-115)
[2025-02-07] MEDS: methylPREDNISolone Sod Succ 1,000 MG in 0.9 % Sodium Chloride 50 ML 66 MG IV (14:23)
[2025-02-07] MEDS: Milk of Magnesia 30 ML ORAL.SUSP PO (15:48)
[2025-02-07 16:31] LABS: Glucose, Whole Blood 137 mg/dL (60-115)
[2025-02-07 20:18] LABS: Glucose, Whole Blood 222 mg/dL (60-115)
[2025-02-07] MEDS: Metoprolol Succinate ER 25 MG TAB.ER.24H PO (20:48)
[2025-02-07] MEDS: PARoxetine HCL 40 MG TABLET PO (20:48)
[2025-02-07] MEDS: Insulin Glargine,Hum.rec.anlog 100 UNIT/ML 10 ML VIAL 35 UNIT SUBCUT (20:49)
[2025-02-08] VITALS (7 sets, daily range): BP systolic 106–128; BP diastolic 58–67; PULSE 63–74; RESP 16–18; TEMP 36.5–36.9; O2SAT 92–95
[2025-02-08] MEDS: oxyCODONE HCl Immed Release 5 MG TABLET PO (04:30)
[2025-02-08] MEDS: Fluticasone/Vilanterol 100/25 BLST.W.DEV 1 PUFF INHALE (07:24)
[2025-02-08 07:32] LABS: Hematocrit 39.6 % (37.0-47.0); Hemoglobin 13.2 g/dl (12.0-16.0); Mean Corpuscular HGB Conc 33.3 g/dl (31.0-35.0); Mean Corpuscular Hemoglobin 27.1 pg (27.0-33.0); Mean Corpuscular Volume 81.3 fL (80.0-98.0); NRBC Abs Auto 0.000 X10*3/uL (0.0-0.012); NRBC Pct Auto 0.0 /100WBC (0.0-0.2); PLT CLUMP 1; Red Blood Count 4.87 X10*6/uL (4.20-5.50)
[2025-02-08 07:57] LABS: Alanine Aminotransferase 44 U/L (0-31); Albumin Level 4.1 g/dL (3.5-5.0); Alkaline Phosphatase 75 U/L (39-117); Anion Gap 15 (12-20); Aspartate Amino Transferase 34 U/L (5-31); Blood Urea Nitrogen 26 mg/dL (9-16); Calcium 9.5 mg/dL (8.4-10.2); Carbon Dioxide 23 mmol/L (22-29); Chloride 102 mmol/L (96-108); Creatinine Clr Calc Pharmacy 129.4; Estimated Glomerular Filt Rate > 60; Magnesium 2.1 mg/dL (1.6-2.6); Potassium 4.6 mmol/L (3.3-5.1); Sodium 135 mmol/L (135-145); Total Protein 6.6 g/dL (6.5-8.0)
[2025-02-08] MEDS: 0.9 % Sodium Chloride Flush 3 ML SYRINGE IVFLUSH ×2 (08:00→21:18)
[2025-02-08 08:28] LABS: White Blood Count 10.1 X10*3/uL (4.8-10.8)
[2025-02-08 08:53] LABS: Glucose, Whole Blood 152 mg/dL (60-115)
--- NOTE | 2025-02-08 09:28 | HO.PM.IMPN ---
Subjective Subjective Date of Service: 02/08/25 Review of Systems Review of Systems: Yes Unobtainable due to mental condition Physical Exam Exam: Exam: She is sleepy but easily arousable. She is oriented x3. She follows commands well. Cranial nerves 2-12 are normal. There is no obvious facial asymmetry. Tongue protrudes in the midline. She has spastic left hemiparesis and mild right upper extremity weakness. Right lower extremities at least 4+/5. Plantar response on the left is extensor on the right is flexor. Gait was not tested. Vital Signs: Vital Signs: Last Vital Signs Temp 98.5 F 02/08/25 08:00 Pulse 64 02/08/25 08:00 Resp 17 02/08/25 08:00 BP 111/64 02/08/25 08:00 Pulse Ox 93 02/08/25 08:00 O2 Del Method Room Air 02/08/25 08:00 BMI result Body Mass Index 42.0 Objective Data Active Medications Acetaminophen (Acetaminophen 325 Mg Tablet) 975 mg PO Q6H PRN PRN Reason: Pain, Mild 1-3,fever,headache Last Admin: 02/08/25 01:42 Dose: 975 mg Documented By: FALGUNI Albuterol Sulfate (Albuterol Sulfate (0.083%) 2.5 Mg/3 Ml Vial.Neb) 2.5 mg INHALE Q4H PRN PRN Reason: shortness of breath or wheezing Albuterol Sulfate (Albuterol Sulfate 90 Mcg 8 Gm Inhaler) 2 puff INHALE Q4H PRN PRN Reason: Wheezing Aspirin (Aspirin 81 Mg Tab.Chew) 81 mg PO BEDTIME [facility] Last Admin: 02/07/25 20:50 Dose: 81 mg Documented By: FALGUNI Atorvastatin Calcium (Atorvastatin Calcium 80 Mg Tablet) 80 mg PO BEDTIME [facility] Last Admin: 02/07/25 20:48 Dose: 80 mg Documented By: FALGUNI Calcium Carbonate (Calcium Carbonate 750 Mg Tab.Chew) 750 mg PO Q4H PRN PRN Reason: Heartburn Clonidine HCl (Clonidine Hcl 0.1 Mg Tablet) 0.1 mg PO BEDTIME [facility]; Protocol Last Admin: 02/07/25 22:30 Dose: Not Given Documented By: FALGUNI Non-Admin Reason: Decreased Blood Pressure Dextrose (Dextrose 50 % 25 Gm/50 Ml Syringe) 25 gm IVPUSH Q15M PRN; Protocol PRN Reason: per Hypoglycemia Standing Ord. Ezetimibe (Ezetimibe 10 Mg Tablet) 10 mg PO DAILY [facility] Last Admin: 02/08/25 08:00 Dose: 10 mg Documented By: SEEMA Famotidine (Famotidine 20 Mg Tablet) 20 mg PO BID [facility] Last Admin: 02/08/25 08:01 Dose: 20 mg Documented By: SEEMA Fluticasone/Vilanterol (Fluticasone/Vilanterol 100/25 Blst.W.Dev) 1 puff INHALE RDAILY [facility] Last Admin: 02/08/25 07:24 Dose: 1 puff Documented By: GLUAIDE Furosemide (Furosemide 20 Mg Tablet) 20 mg PO DAILY [facility]; Protocol Last Admin: 02/08/25 08:01 Dose: 20 mg Documented By: SEEMA Gabapentin (Gabapentin 400 Mg Capsule) 800 mg PO TID [facility] Last Admin: 02/08/25 08:00 Dose: 800 mg Documented By: SEEMA Glucose (Glucose Gel 15 Gm Gel..Gram.) 15 gm PO Q15M PRN; Protocol PRN Reason: per Hypoglycemia Standing Ord. Insulin Glargine (Insulin Glargine,Hum.Rec.Anlog 100 Unit/Ml 10 Ml Vial) 35 unit SUBCUT BEDTIME [facility] Last Admin: 02/07/25 20:49 Dose: 35 unit Documented By: FALGUNI Insulin Human Lispro (Insulin Lispro 100 Unit/Ml 3 Ml Vial) 0 unit SUBCUT QIDACHS [facility]; Protocol Last Admin: 02/08/25 08:00 Dose: 2 unit Documented By: SEEMA Loratadine (Loratadine 10 Mg Tablet) 10 mg PO DAILY [facility] Last Admin: 02/08/25 08:01 Dose: 10 mg Documented By: SEEMA Losartan Potassium (Losartan Potassium 50 Mg Tablet) 50 mg PO DAILY [facility]; Protocol Last Admin: 02/08/25 08:01 Dose: 50 mg Documented By: SEEMA Magnesium Hydroxide (Milk Of Magnesia 30 Ml Oral.Susp) 30 ml PO DAILY PRN PRN Reason: Constipation Last Admin: 02/07/25 15:48 Dose: 30 ml Documented By: PHANLYM Melatonin (Melatonin 3 Mg Tablet) 6 mg PO BEDTIME PRN PRN Reason: Insomnia Metoprolol Succinate (Metoprolol Succinate Er 25 Mg Tab.Er.24h) 25 mg PO BEDTIME [facility]; Protocol Last Admin: 02/07/25 20:48 Dose: 25 mg Documented By: FALGUNI Montelukast Sodium (Montelukast Sodium 10 Mg Tablet) 10 mg PO BEDTIME [facility] Last Admin: 02/07/25 20:48 Dose: 10 mg Documented By: FALGUNI Ondansetron HCl (Ondansetron Hcl 4 Mg/2 Ml Vial) 4 mg IVPUSH Q8H PRN PRN Reason: Nausea and Vomiting Oxcarbazepine (Oxcarbazepine 150 Mg Tablet) 150 mg PO DAILY [facility] Last Admin: 02/08/25 08:01 Dose: 150 mg Documented By: SEEMA Oxcarbazepine (Oxcarbazepine 150 Mg Tablet) 450 mg PO BEDTIME [facility] Last Admin: 02/07/25 20:46 Dose: 450 mg Documented By: FALGUNI Oxycodone HCl (Oxycodone Hcl Immed Release 5 Mg Tablet) 5 mg PO Q6H PRN PRN Reason: Pain, Severe (Pain Scale 7-10) Last Admin: 02/08/25 04:30 Dose: 5 mg Documented By: FALGUNI Paroxetine HCl (Paroxetine Hcl 40 Mg Tablet) 40 mg PO BEDTIME [facility] Last Admin: 02/07/25 20:48 Dose: 40 mg Documented By: FALGUNI Pyridoxine HCl (Pyridoxine Hcl (Vitamin B6) 50 Mg Tablet) 100 mg PO DAILY [facility] Last Admin: 02/08/25 08:01 Dose: 100 mg Documented By: SEEMA Sodium Chloride (0.9 % Sodium Chloride Flush 3 Ml Syringe) 3 ml IVFLUSH QSHIFT [facility] Last Admin: 02/08/25 08:00 Dose: 3 ml Documented By: SEEMA Tramadol HCl (Tramadol Hcl 50 Mg Tablet) 50 mg PO Q6H PRN PRN Reason: Pain, Moderate(Pain Scale 4-6) Last Admin: 02/07/25 20:48 Dose: 50 mg Documented By: FALGUNI Labs 02/08/25 07:03 02/08/25 07:03 Labs: Laboratory Results - last 24 hr 02/07/25 02/07/25 02/07/25 11:41 16:27 20:13 MCV MCH MCHC RDW Plt Count MPV Absolute Nucleated RBC Nucleated RBC % (auto) Anion Gap Estim Creat Clear Calc Estimated GFR POC Glucose 114 137 H 222 H Random Glucose Calcium Magnesium Total Bilirubin Direct Bilirubin AST ALT Alkaline Phosphatase Total Protein Albumin 02/08/25 02/08/25 07:03 07:47 MCV 81.3 MCH 27.1 MCHC 33.3 RDW 12.8 Plt Count TNP MPV TNP Absolute Nucleated RBC 0.000 Nucleated RBC % (auto) 0.0 Anion Gap 15 Estim Creat Clear Calc 129.4 Estimated GFR > 60 POC Glucose 152 H Random Glucose 143 H Calcium 9.5 Magnesium 2.1 Total Bilirubin 0.4 Direct Bilirubin 0.2 AST 34 H ALT 44 H Alkaline Phosphatase 75 Total Protein 6.6 Albumin 4.1 Microbiology Microbiology Results: Microbiology 02/06/25 08:30 Gram Stain - Final Cerebrospinal Fluid Fluid Description - Final CSF Culture - Preliminary No growth after 2 days 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 autoimmune disorder, ?[employer] lymphoma - follow up cytology LP with some rbcs and lymphocytes, follow up results, follow up Neurology day 2/ solumerdol 1gm daily COPD Continue inhalers Epilepsy Oxcarbazepine Diabetes Insulin sliding scale DRE CPAP at night Morbid obesity Weight loss recommended DVT prophylaxis-mechanical due to late subacute subdural hemorrhage DNR/DNI reason for continued hospitalization: ongoing neuro work up, high dose iv steroids Quality Stroke Does the patient have a stroke diagnosis?: No VTE Prior VTE?: No VTE Risk Level:: Medical - moderate - high VTE Device Contraindication: N/A - Device Ordered VTE Drug Contraindication: Treatment Not Indicated
[2025-02-08 11:56] LABS: Glucose, Whole Blood 169 mg/dL (60-115)
--- NOTE | 2025-02-08 12:45 | PC.RT ---
pt has refused to wear cpap for 3 consecutive days. order dc's per policy
[2025-02-08 17:19] LABS: Glucose, Whole Blood 122 mg/dL (60-115)
[2025-02-08 20:18] LABS: Glucose, Whole Blood 227 mg/dL (60-115)
[2025-02-08] MEDS: Metoprolol Succinate ER 25 MG TAB.ER.24H PO (21:00)
[2025-02-08] MEDS: Insulin Glargine,Hum.rec.anlog 100 UNIT/ML 10 ML VIAL 35 UNIT SUBCUT (21:01)
[2025-02-08] MEDS: PARoxetine HCL 40 MG TABLET PO (21:09)
[2025-02-09 03:07] VITALS: BP 114/65; PULSE 61; RESP 16; TEMP 36.6; O2SAT 94
[2025-02-09 07:08] VITALS: BP 121/59; PULSE 58; RESP 17; TEMP 36.6; O2SAT 94
[2025-02-09 07:18] LABS: Glucose, Whole Blood 100 mg/dL (60-115)
[2025-02-09] MEDS: methylPREDNISolone Sod Succ 1,000 MG in 0.9 % Sodium Chloride 50 ML 66 MG IV (10:39)
--- NOTE | 2025-02-09 10:48 | HO.PM.IMPN ---
Subjective Subjective Date of Service: 02/09/25 Review of Systems Review of Systems: Yes Unobtainable due to mental condition Physical Exam Exam: Exam: She is sleepy but easily arousable. She is oriented x3. She follows commands well. Cranial nerves 2-12 are normal. There is no obvious facial asymmetry. Tongue protrudes in the midline. She has spastic left hemiparesis and mild right upper extremity weakness. Right lower extremities at least 4+/5. Plantar response on the left is extensor on the right is flexor. Gait was not tested. Vital Signs: Vital Signs: Last Vital Signs Temp 98 F 02/09/25 07:08 Pulse 58 02/09/25 07:08 Resp 17 02/09/25 07:08 BP 121/59 L 02/09/25 07:08 Pulse Ox 94 02/09/25 07:08 O2 Del Method Room Air 02/09/25 07:08 BMI result Body Mass Index 42.0 Objective Data Active Medications Acetaminophen (Acetaminophen 325 Mg Tablet) 975 mg PO Q6H PRN PRN Reason: Pain, Mild 1-3,fever,headache Last Admin: 02/09/25 07:11 Dose: 975 mg Documented By: SAE Albuterol Sulfate (Albuterol Sulfate (0.083%) 2.5 Mg/3 Ml Vial.Neb) 2.5 mg INHALE Q4H PRN PRN Reason: shortness of breath or wheezing Albuterol Sulfate (Albuterol Sulfate 90 Mcg 8 Gm Inhaler) 2 puff INHALE Q4H PRN PRN Reason: Wheezing Aspirin (Aspirin 81 Mg Tab.Chew) 81 mg PO BEDTIME [facility] Last Admin: 02/08/25 21:00 Dose: 81 mg Documented By: MANAV Atorvastatin Calcium (Atorvastatin Calcium 80 Mg Tablet) 80 mg PO BEDTIME [facility] Last Admin: 02/08/25 20:59 Dose: 80 mg Documented By: MANAV Calcium Carbonate (Calcium Carbonate 750 Mg Tab.Chew) 750 mg PO Q4H PRN PRN Reason: Heartburn Clonidine HCl (Clonidine Hcl 0.1 Mg Tablet) 0.1 mg PO BEDTIME [facility]; Protocol Last Admin: 02/08/25 20:59 Dose: 0.1 mg Documented By: MANAV Dextrose (Dextrose 50 % 25 Gm/50 Ml Syringe) 25 gm IVPUSH Q15M PRN; Protocol PRN Reason: per Hypoglycemia Standing Ord. Ezetimibe (Ezetimibe 10 Mg Tablet) 10 mg PO DAILY [facility] Last Admin: 02/09/25 08:46 Dose: 10 mg Documented By: SAE Famotidine (Famotidine 20 Mg Tablet) 20 mg PO BID [facility] Last Admin: 02/09/25 08:46 Dose: 20 mg Documented By: SAE Fluticasone/Vilanterol (Fluticasone/Vilanterol 100/ Blst.W.Dev) 1 puff INHALE RDAILY [facility] Last Admin: 02/09/25 08:24 Dose: Not Given Documented By: ABHISHEK Non-Admin Reason: pharmacy called for med Furosemide (Furosemide 20 Mg Tablet) 20 mg PO DAILY [facility]; Protocol Last Admin: 02/09/25 08:46 Dose: 20 mg Documented By: SAE Gabapentin (Gabapentin 400 Mg Capsule) 800 mg PO TID [facility] Last Admin: 02/09/25 08:46 Dose: 800 mg Documented By: SAE Glucose (Glucose Gel 15 Gm Gel..Gram.) 15 gm PO Q15M PRN; Protocol PRN Reason: per Hypoglycemia Standing Ord. Methylprednisolone Sodium Succinate 1,000 mg/ Sodium Chloride 66 mls @ 66 mls/hr IV DAILY [facility] Stop: 02/10/25 09:29 Last Admin: 02/09/25 10:39 Dose: 66 mls/hr Documented By: SAE Insulin Glargine (Insulin Glargine,Hum.Rec.Anlog 100 Unit/Ml 10 Ml Vial) 35 unit SUBCUT BEDTIME [facility] Last Admin: 02/08/25 21:01 Dose: 35 unit Documented By: MANAV Insulin Human Lispro (Insulin Lispro 100 Unit/Ml 3 Ml Vial) 0 unit SUBCUT QIDACHS [facility]; Protocol Last Admin: 02/09/25 07:15 Dose: Not Given Documented By: SAE Non-Admin Reason: No Insulin Coverage Loratadine (Loratadine 10 Mg Tablet) 10 mg PO DAILY [facility] Last Admin: 02/09/25 08:45 Dose: 10 mg Documented By: SAE Losartan Potassium (Losartan Potassium 50 Mg Tablet) 50 mg PO DAILY [facility]; Protocol Last Admin: 02/09/25 08:46 Dose: 50 mg Documented By: SAE Magnesium Hydroxide (Milk Of Magnesia 30 Ml Oral.Susp) 30 ml PO DAILY PRN PRN Reason: Constipation Last Admin: 02/07/25 15:48 Dose: 30 ml Documented By: JIMI Melatonin (Melatonin 3 Mg Tablet) 6 mg PO BEDTIME PRN PRN Reason: Insomnia Metoprolol Succinate (Metoprolol Succinate Er 25 Mg Tab.Er.24h) 25 mg PO BEDTIME [facility]; Protocol Last Admin: 02/08/25 21:00 Dose: 25 mg Documented By: MANAV Montelukast Sodium (Montelukast Sodium 10 Mg Tablet) 10 mg PO BEDTIME [facility] Last Admin: 02/08/25 21:00 Dose: 10 mg Documented By: MANAV Ondansetron HCl (Ondansetron Hcl 4 Mg/2 Ml Vial) 4 mg IVPUSH Q8H PRN PRN Reason: Nausea and Vomiting Oxcarbazepine (Oxcarbazepine 150 Mg Tablet) 150 mg PO DAILY [facility] Last Admin: 02/09/25 08:46 Dose: 150 mg Documented By: SAE Oxcarbazepine (Oxcarbazepine 150 Mg Tablet) 450 mg PO BEDTIME [facility] Last Admin: 02/08/25 20:59 Dose: 450 mg Documented By: MANAV Oxycodone HCl (Oxycodone Hcl Immed Release 5 Mg Tablet) 5 mg PO Q6H PRN PRN Reason: Pain, Severe (Pain Scale 7-10) Last Admin: 02/08/25 04:30 Dose: 5 mg Documented By: FALGUNI Paroxetine HCl (Paroxetine Hcl 40 Mg Tablet) 40 mg PO BEDTIME [facility] Last Admin: 02/08/25 21:09 Dose: 40 mg Documented By: MANAV Pyridoxine HCl (Pyridoxine Hcl (Vitamin B6) 50 Mg Tablet) 100 mg PO DAILY [facility] Last Admin: 02/09/25 08:45 Dose: 100 mg Documented By: SAE Sodium Chloride (0.9 % Sodium Chloride Flush 3 Ml Syringe) 3 ml IVFLUSH QSHIFT [facility] Last Admin: 02/09/25 08:50 Dose: Not Given Documented By: SAE Non-Admin Reason: Previously Administered Tramadol HCl (Tramadol Hcl 50 Mg Tablet) 50 mg PO Q6H PRN PRN Reason: Pain, Moderate(Pain Scale 4-6) Last Admin: 02/07/25 20:48 Dose: 50 mg Documented By: FALGUNI Labs 02/08/25 07:03 02/08/25 07:03 Labs: Laboratory Results - last 24 hr 02/08/25 02/08/25 02/08/25 11:50 17:15 20:11 POC Glucose 169 H 122 H 227 H 02/09/25 07:11 POC Glucose 100 Microbiology Microbiology Results: Microbiology 02/06/25 08:30 Gram Stain - Final Cerebrospinal Fluid Fluid Description - Final CSF Culture - Final No growth after 3 days. 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 autoimmune disorder, ?[employer] WORK[employer] lymphoma - follow up cytology LP with some rbcs and lymphocytes, follow up results, follow up Neurology day 2/3 solumerdol 1gm daily (missed dose 02/08) COPD Continue inhalers Epilepsy Oxcarbazepine Diabetes Insulin sliding scale DRE CPAP at night Morbid obesity Weight loss recommended DVT prophylaxis-mechanical due to late subacute subdural hemorrhage DNR/DNI reason for continued hospitalization: ongoing neuro work up, high dose iv steroids Quality Stroke Does the patient have a stroke diagnosis?: No VTE Prior VTE?: No VTE Risk Level:: Medical - moderate - high VTE Device Contraindication: N/A - Device Ordered VTE Drug Contraindication: Treatment Not Indicated
[2025-02-09 11:06] LABS: Glucose, Whole Blood 113 mg/dL (60-115)
[2025-02-09] MEDS: 0.9 % Sodium Chloride Flush 3 ML SYRINGE IVFLUSH ×2 (15:06→21:00)
[2025-02-09 15:59] VITALS: BP 131/59; PULSE 69; RESP 18; TEMP 36.4; O2SAT 93
[2025-02-09] MEDS: oxyCODONE HCl Immed Release 5 MG TABLET PO (16:05)
[2025-02-09 16:11] LABS: Glucose, Whole Blood 212 mg/dL (60-115)
[2025-02-09 19:20] VITALS: BP 136/63; PULSE 83; RESP 18; TEMP 36.2; O2SAT 93
[2025-02-09 20:29] LABS: Glucose, Whole Blood 230 mg/dL (60-115)
[2025-02-09] MEDS: Metoprolol Succinate ER 25 MG TAB.ER.24H PO (20:58)
[2025-02-09] MEDS: PARoxetine HCL 40 MG TABLET PO (20:58)
[2025-02-09] MEDS: Insulin Glargine,Hum.rec.anlog 100 UNIT/ML 10 ML VIAL 35 UNIT SUBCUT (20:59)
[2025-02-10 03:29] VITALS: BP 124/62; PULSE 65; RESP 16; TEMP 36.9; O2SAT 92
[2025-02-10 06:56] VITALS: BP 138/62; PULSE 65; RESP 18; TEMP 37.1; O2SAT 93
[2025-02-10 06:56] LABS: Anion Gap 11 (12-20); Blood Urea Nitrogen 22 mg/dL (9-16); Calcium 9.1 mg/dL (8.4-10.2); Carbon Dioxide 27 mmol/L (22-29); Chloride 105 mmol/L (96-108); Creatinine Clr Calc Pharmacy 139.6; Estimated Glomerular Filt Rate > 60; Potassium 4.2 mmol/L (3.3-5.1); Sodium 139 mmol/L (135-145)
[2025-02-10 07:15] LABS: Hematocrit 39.7 % (37.0-47.0); Hemoglobin 12.7 g/dl (12.0-16.0); Mean Corpuscular HGB Conc 32.0 g/dl (31.0-35.0); Mean Corpuscular Hemoglobin 27.4 pg (27.0-33.0); Mean Corpuscular Volume 85.6 fL (80.0-98.0); NRBC Abs Auto 0.000 X10*3/uL (0.0-0.012); NRBC Pct Auto 0.0 /100WBC (0.0-0.2); Platelet Count 209 X10*3/uL (160-400); Red Blood Count 4.64 X10*6/uL (4.20-5.50); White Blood Count 11.2 X10*3/uL (4.8-10.8)
[2025-02-10 07:21] LABS: Glucose, Whole Blood 154 mg/dL (60-115)
[2025-02-10] MEDS: Fluticasone/Vilanterol 100/25 BLST.W.DEV 1 PUFF INHALE (07:44)
[2025-02-10 07:46] VITALS: PULSE 65; RESP 18; O2SAT 93
[2025-02-10] MEDS: 0.9 % Sodium Chloride Flush 3 ML SYRINGE IVFLUSH ×2 (09:03→15:12)
[2025-02-10] MEDS: methylPREDNISolone Sod Succ 1,000 MG in 0.9 % Sodium Chloride 50 ML 66 MG IV (09:03)
--- NOTE | 2025-02-10 09:55 | HO.PM.IMPN ---
Subjective Subjective Date of Service: 02/10/25 Interval History: more alert, more verbal Physical Exam Exam: Exam: She is sleepy but easily arousable. She is oriented x3. She follows commands well. Cranial nerves 2-12 are normal. There is no obvious facial asymmetry. Tongue protrudes in the midline. She has spastic left hemiparesis and mild right upper extremity weakness. Right lower extremities at least 4+/5. Plantar response on the left is extensor on the right is flexor. Gait was not tested. Vital Signs: Vital Signs: Last Vital Signs Temp 98.7 F 02/10/25 06:56 Pulse 65 02/10/25 07:46 Resp 18 02/10/25 07:46 BP 138/62 02/10/25 06:56 Pulse Ox 93 02/10/25 06:56 O2 Del Method Room Air 02/10/25 06:56 BMI result Body Mass Index 42.0 Objective Data Active Medications Acetaminophen (Acetaminophen 325 Mg Tablet) 975 mg PO Q6H PRN PRN Reason: Pain, Mild 1-3,fever,headache Last Admin: 02/10/25 02:58 Dose: 975 mg Documented By: MANAV Albuterol Sulfate (Albuterol Sulfate (0.083%) 2.5 Mg/3 Ml Vial.Neb) 2.5 mg INHALE Q4H PRN PRN Reason: shortness of breath or wheezing Albuterol Sulfate (Albuterol Sulfate 90 Mcg 8 Gm Inhaler) 2 puff INHALE Q4H PRN PRN Reason: Wheezing Aspirin (Aspirin 81 Mg Tab.Chew) 81 mg PO BEDTIME [facility] Last Admin: 02/09/25 20:58 Dose: 81 mg Documented By: MANAV Atorvastatin Calcium (Atorvastatin Calcium 80 Mg Tablet) 80 mg PO BEDTIME [facility] Last Admin: 02/09/25 20:58 Dose: 80 mg Documented By: MANAV Calcium Carbonate (Calcium Carbonate 750 Mg Tab.Chew) 750 mg PO Q4H PRN PRN Reason: Heartburn Clonidine HCl (Clonidine Hcl 0.1 Mg Tablet) 0.1 mg PO BEDTIME [facility]; Protocol Last Admin: 02/09/25 20:58 Dose: 0.1 mg Documented By: MANAV Dextrose (Dextrose 50 % 25 Gm/50 Ml Syringe) 25 gm IVPUSH Q15M PRN; Protocol PRN Reason: per Hypoglycemia Standing Ord. Ezetimibe (Ezetimibe 10 Mg Tablet) 10 mg PO DAILY [facility] Last Admin: 02/10/25 09:02 Dose: 10 mg Documented By: SAE Famotidine (Famotidine 20 Mg Tablet) 20 mg PO BID [facility] Last Admin: 02/10/25 09:02 Dose: 20 mg Documented By: SAE Fluticasone/Vilanterol (Fluticasone/Vilanterol 100/25 Blst.W.Dev) 1 puff INHALE RDAILY [facility] Last Admin: 02/10/25 07:44 Dose: 1 puff Documented By: ABHISHEK Furosemide (Furosemide 20 Mg Tablet) 20 mg PO DAILY [facility]; Protocol Last Admin: 02/10/25 09:11 Dose: 20 mg Documented By: SAE Gabapentin (Gabapentin 400 Mg Capsule) 800 mg PO TID [facility] Last Admin: 02/10/25 09:03 Dose: 800 mg Documented By: SAE Glucose (Glucose Gel 15 Gm Gel..Gram.) 15 gm PO Q15M PRN; Protocol PRN Reason: per Hypoglycemia Standing Ord. Insulin Glargine (Insulin Glargine,Hum.Rec.Anlog 100 Unit/Ml 10 Ml Vial) 35 unit SUBCUT BEDTIME [facility] Last Admin: 02/09/25 20:59 Dose: 35 unit Documented By: MANAV Insulin Human Lispro (Insulin Lispro 100 Unit/Ml 3 Ml Vial) 0 unit SUBCUT QIDACHS [facility]; Protocol Last Admin: 02/10/25 07:36 Dose: 2 unit Documented By: SAE Loratadine (Loratadine 10 Mg Tablet) 10 mg PO DAILY [facility] Last Admin: 02/10/25 09:02 Dose: 10 mg Documented By: SAE Losartan Potassium (Losartan Potassium 50 Mg Tablet) 50 mg PO DAILY [facility]; Protocol Last Admin: 02/10/25 09:02 Dose: 50 mg Documented By: SAE Magnesium Hydroxide (Milk Of Magnesia 30 Ml Oral.Susp) 30 ml PO DAILY PRN PRN Reason: Constipation Last Admin: 02/07/25 15:48 Dose: 30 ml Documented By: JIMI Melatonin (Melatonin 3 Mg Tablet) 6 mg PO BEDTIME PRN PRN Reason: Insomnia Metoprolol Succinate (Metoprolol Succinate Er 25 Mg Tab.Er.24h) 25 mg PO BEDTIME [facility]; Protocol Last Admin: 02/09/25 20:58 Dose: 25 mg Documented By: MANAV Montelukast Sodium (Montelukast Sodium 10 Mg Tablet) 10 mg PO BEDTIME [facility] Last Admin: 02/09/25 20:58 Dose: 10 mg Documented By: MANAV Ondansetron HCl (Ondansetron Hcl 4 Mg/2 Ml Vial) 4 mg IVPUSH Q8H PRN PRN Reason: Nausea and Vomiting Oxcarbazepine (Oxcarbazepine 150 Mg Tablet) 150 mg PO DAILY [facility] Last Admin: 02/10/25 09:02 Dose: 150 mg Documented By: SAE Oxcarbazepine (Oxcarbazepine 150 Mg Tablet) 450 mg PO BEDTIME [facility] Last Admin: 02/09/25 20:58 Dose: 450 mg Documented By: MANAV Paroxetine HCl (Paroxetine Hcl 40 Mg Tablet) 40 mg PO BEDTIME [facility] Last Admin: 02/09/25 20:58 Dose: 40 mg Documented By: MANAV Pyridoxine HCl (Pyridoxine Hcl (Vitamin B6) 50 Mg Tablet) 100 mg PO DAILY [facility] Last Admin: 02/10/25 09:03 Dose: 100 mg Documented By: SAE Sodium Chloride (0.9 % Sodium Chloride Flush 3 Ml Syringe) 3 ml IVFLUSH QSHIFT [facility] Last Admin: 02/10/25 09:03 Dose: 3 ml Documented By: SAE Labs 02/10/25 06:13 02/10/25 06:13 Labs: Laboratory Results - last 24 hr 02/09/25 02/09/25 02/09/25 11:03 16:08 20:17 MCV MCH MCHC RDW Plt Count MPV Absolute Nucleated RBC Nucleated RBC % (auto) Anion Gap Estim Creat Clear Calc Estimated GFR POC Glucose 113 212 H 230 H Random Glucose Calcium 02/10/25 02/10/25 06:13 07:00 MCV 85.6 MCH 27.4 MCHC 32.0 RDW 13.0 Plt Count 209 MPV 12.2 Absolute Nucleated RBC 0.000 Nucleated RBC % (auto) 0.0 Anion Gap 11 L Estim Creat Clear Calc 139.6 Estimated GFR > 60 POC Glucose 154 H Random Glucose 149 H Calcium 9.1 Microbiology Microbiology Results: Microbiology 02/06/25 08:30 Gram Stain - Final Cerebrospinal Fluid Fluid Description - Final CSF Culture - Final No growth after 3 days. 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 lymphoma - follow up cytology LP with some rbcs and lymphocytes, follow up results, follow up Neurology day 04/23 solumerdol 1gm daily (missed dose 02/08) COPD Continue inhalers Epilepsy Oxcarbazepine Diabetes Insulin sliding scale DRE CPAP at night Morbid obesity Weight loss recommended DVT prophylaxis-mechanical due to late subacute subdural hemorrhage DNR/DNI reason for continued hospitalization: ongoing neuro work up, high dose iv steroids Quality Stroke Does the patient have a stroke diagnosis?: No VTE Prior VTE?: No VTE Risk Level:: Medical - moderate - high VTE Device Contraindication: N/A - Device Ordered VTE Drug Contraindication: Treatment Not Indicated
[2025-02-10 11:24] LABS: Glucose, Whole Blood 240 mg/dL (60-115)
[2025-02-10] MEDS: oxyCODONE HCl Immed Release 5 MG TABLET PO (15:12)
[2025-02-10 16:00] VITALS: BP 117/58; PULSE 68; RESP 19; TEMP 36.8; O2SAT 93
[2025-02-10 16:37] LABS: Glucose, Whole Blood 268 mg/dL (60-115)
[2025-02-10 20:00] VITALS: BP 145/83; PULSE 69; RESP 19; TEMP 36.5; O2SAT 93
[2025-02-10 21:11] LABS: Glucose, Whole Blood 265 mg/dL (60-115)
[2025-02-10] MEDS: Metoprolol Succinate ER 25 MG TAB.ER.24H PO (22:33)
[2025-02-10] MEDS: PARoxetine HCL 40 MG TABLET PO (22:35)
[2025-02-10] MEDS: Insulin Glargine,Hum.rec.anlog 100 UNIT/ML 10 ML VIAL 35 UNIT SUBCUT (22:39)
[2025-02-11 04:00] VITALS: BP 115/67; PULSE 57; RESP 17; TEMP 36.4; O2SAT 93
[2025-02-11] MEDS: oxyCODONE HCl Immed Release 5 MG TABLET PO ×2 (05:13→11:47)
[2025-02-11 07:38] LABS: Glucose, Whole Blood 162 mg/dL (60-115)
[2025-02-11 07:58] VITALS: BP 115/55; PULSE 55; RESP 18; TEMP 36; O2SAT 95
[2025-02-11] MEDS: Fluticasone/Vilanterol 100/25 BLST.W.DEV 1 PUFF INHALE (08:21)
[2025-02-11 08:23] VITALS: PULSE 62; RESP 18; O2SAT 94
[2025-02-11] MEDS: 0.9 % Sodium Chloride Flush 3 ML SYRINGE IVFLUSH ×3 (08:36→19:35)
--- NOTE | 2025-02-11 08:49 | P.PNIM_ITS ---
Subjective Subjective Date of Service: 02/11/25 Interval History: some improvement in speech level of alertness, still profoundly weak Physical Exam 2 Exam: Exam: She is sleepy but easily arousable. She is oriented x3. She follows commands well. Cranial nerves 2-12 are normal. There is no obvious facial asymmetry. Tongue protrudes in the midline. She has spastic left hemiparesis and mild right upper extremity weakness. Right lower extremities at least 4+/5. Plantar response on the left is extensor on the right is flexor. Gait was not tested. Vital Signs: Vital Signs: Last Vital Signs Temp 96.8 F 02/11/25 07:58 Pulse 62 02/11/25 08:23 Resp 18 02/11/25 08:23 BP 115/55 L 02/11/25 07:58 Pulse Ox 95 02/11/25 07:58 O2 Del Method Room Air 02/11/25 07:58 BMI result Body Mass Index 42.0 Objective Data Active Medications Acetaminophen (Acetaminophen 325 Mg Tablet) 975 mg PO Q6H PRN PRN Reason: Pain, Mild 1-3,fever,headache Last Admin: 02/11/25 08:42 Dose: 975 mg Documented By: JOHNATHON Albuterol Sulfate (Albuterol Sulfate (0.083%) 2.5 Mg/3 Ml Vial.Neb) 2.5 mg INHALE Q4H PRN PRN Reason: shortness of breath or wheezing Albuterol Sulfate (Albuterol Sulfate 90 Mcg 8 Gm Inhaler) 2 puff INHALE Q4H PRN PRN Reason: Wheezing Aspirin (Aspirin 81 Mg Tab.Chew) 81 mg PO BEDTIME [facility] Last Admin: 02/10/25 22:35 Dose: 81 mg Documented By: MARV Atorvastatin Calcium (Atorvastatin Calcium 80 Mg Tablet) 80 mg PO BEDTIME [facility] Last Admin: 02/10/25 22:34 Dose: 80 mg Documented By: MARV Calcium Carbonate (Calcium Carbonate 750 Mg Tab.Chew) 750 mg PO Q4H PRN PRN Reason: Heartburn Clonidine HCl (Clonidine Hcl 0.1 Mg Tablet) 0.1 mg PO BEDTIME [facility]; Protocol Last Admin: 02/10/25 22:34 Dose: 0.1 mg Documented By: MARV Dextrose (Dextrose 50 % 25 Gm/50 Ml Syringe) 25 gm IVPUSH Q15M PRN; Protocol PRN Reason: per Hypoglycemia Standing Ord. Ezetimibe (Ezetimibe 10 Mg Tablet) 10 mg PO DAILY [facility] Last Admin: 02/11/25 08:36 Dose: 10 mg Documented By: JOHNATHON Famotidine (Famotidine 20 Mg Tablet) 20 mg PO BID [facility] Last Admin: 02/11/25 08:35 Dose: 20 mg Documented By: JOHNATHON Fluticasone/Vilanterol (Fluticasone/Vilanterol 100/25 Blst.W.Dev) 1 puff INHALE RDAILY [facility] Last Admin: 02/11/25 08:21 Dose: 1 puff Documented By: MARTHA Furosemide (Furosemide 20 Mg Tablet) 20 mg PO DAILY [facility]; Protocol Last Admin: 02/11/25 08:35 Dose: 20 mg Documented By: JOHNATHON Gabapentin (Gabapentin 400 Mg Capsule) 800 mg PO TID [facility] Last Admin: 02/11/25 08:36 Dose: 800 mg Documented By: JOHNATHON Glucose (Glucose Gel 15 Gm Gel..Gram.) 15 gm PO Q15M PRN; Protocol PRN Reason: per Hypoglycemia Standing Ord. Insulin Glargine (Insulin Glargine,Hum.Rec.Anlog 100 Unit/Ml 10 Ml Vial) 35 unit SUBCUT BEDTIME [facility] Last Admin: 02/10/25 22:39 Dose: 35 unit Documented By: MARV Insulin Human Lispro (Insulin Lispro 100 Unit/Ml 3 Ml Vial) 0 unit SUBCUT QIDACHS [facility]; Protocol Last Admin: 02/11/25 08:35 Dose: 2 unit Documented By: JOHNATHON Loratadine (Loratadine 10 Mg Tablet) 10 mg PO DAILY [facility] Last Admin: 02/11/25 08:35 Dose: 10 mg Documented By: JOHNATHON Losartan Potassium (Losartan Potassium 50 Mg Tablet) 50 mg PO DAILY [facility]; Protocol Last Admin: 02/11/25 08:35 Dose: 50 mg Documented By: JOHNATHON Magnesium Hydroxide (Milk Of Magnesia 30 Ml Oral.Susp) 30 ml PO DAILY PRN PRN Reason: Constipation Last Admin: 02/07/25 15:48 Dose: 30 ml Documented By: JIMI Melatonin (Melatonin 3 Mg Tablet) 6 mg PO BEDTIME PRN PRN Reason: Insomnia Metoprolol Succinate (Metoprolol Succinate Er 25 Mg Tab.Er.24h) 25 mg PO BEDTIME [facility]; Protocol Last Admin: 02/10/25 22:33 Dose: 25 mg Documented By: MARV Montelukast Sodium (Montelukast Sodium 10 Mg Tablet) 10 mg PO BEDTIME [facility] Last Admin: 02/10/25 22:34 Dose: 10 mg Documented By: MARV Ondansetron HCl (Ondansetron Hcl 4 Mg/2 Ml Vial) 4 mg IVPUSH Q8H PRN PRN Reason: Nausea and Vomiting Oxcarbazepine (Oxcarbazepine 150 Mg Tablet) 150 mg PO DAILY [facility] Last Admin: 02/11/25 08:35 Dose: 150 mg Documented By: JOHNATHON Oxcarbazepine (Oxcarbazepine 150 Mg Tablet) 450 mg PO BEDTIME [facility] Last Admin: 02/10/25 22:33 Dose: 450 mg Documented By: MARV Oxycodone HCl (Oxycodone Hcl Immed Release 5 Mg Tablet) 5 mg PO Q6H PRN PRN Reason: Pain, Severe (Pain Scale 7-10) Last Admin: 02/11/25 05:13 Dose: 5 mg Documented By: MARV Paroxetine HCl (Paroxetine Hcl 40 Mg Tablet) 40 mg PO BEDTIME [facility] Last Admin: 02/10/25 22:35 Dose: 40 mg Documented By: MARV Pyridoxine HCl (Pyridoxine Hcl (Vitamin B6) 50 Mg Tablet) 100 mg PO DAILY [facility] Last Admin: 02/11/25 08:35 Dose: 100 mg Documented By: JOHNATHON Sodium Chloride (0.9 % Sodium Chloride Flush 3 Ml Syringe) 3 ml IVFLUSH QSHIFT [facility] Last Admin: 02/11/25 08:36 Dose: 3 ml Documented By: JOHNATHON Labs 02/10/25 06:13 02/10/25 06:13 Labs: Laboratory Results - last 24 hr 02/10/25 02/10/25 02/10/25 11:11 16:27 20:58 POC Glucose 240 H 268 H 265 H 02/11/25 07:33 POC Glucose 162 H Assessment and Plan (1) Diabetes mellitus: Status: Acute Plan 59F PMH COPD, epilepsy, DM, CAD, lymphoma, DRE, morbid obesity, hld, GERD, presented with aphasia, weakness aphasia, weakness MRI with bilateral brainstem abnormality concerning for autoimmune disorder, ?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
[2025-02-11 11:14] LABS: Anti Nuclear Antibody Screen NEGATIVE (NEGATIVE)
[2025-02-11 11:43] LABS: Glucose, Whole Blood 197 mg/dL (60-115)
[2025-02-11 15:37] VITALS: BP 128/69; PULSE 64; RESP 18; TEMP 36.2; O2SAT 95
--- NOTE | 2025-02-11 15:44 | MHC.CM.PN ---
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
[2025-02-11 16:19] LABS: Glucose, Whole Blood 221 mg/dL (60-115)
[2025-02-11 19:24] VITALS: BP 122/69; PULSE 67; RESP 18; TEMP 36.6; O2SAT 94
[2025-02-11] MEDS: Metoprolol Succinate ER 25 MG TAB.ER.24H PO (19:32)
[2025-02-11] MEDS: PARoxetine HCL 40 MG TABLET PO (19:33)
[2025-02-11 20:18] LABS: Glucose, Whole Blood 148 mg/dL (60-115)
[2025-02-11] MEDS: Insulin Glargine,Hum.rec.anlog 100 UNIT/ML 10 ML VIAL 35 UNIT SUBCUT (20:31)
[2025-02-12 03:42] VITALS: BP 106/55; PULSE 60; RESP 18; TEMP 36.6; O2SAT 97
[2025-02-12] MEDS: oxyCODONE HCl Immed Release 5 MG TABLET PO ×2 (06:16→11:10)
[2025-02-12 07:37] VITALS: BP 119/69; PULSE 56; RESP 18; TEMP 36.3; O2SAT 96
[2025-02-12 07:46] LABS: Glucose, Whole Blood 108 mg/dL (60-115)
[2025-02-12] MEDS: 0.9 % Sodium Chloride Flush 3 ML SYRINGE IVFLUSH (07:52)
[2025-02-12] MEDS: Fluticasone/Vilanterol 100/25 BLST.W.DEV 1 PUFF INHALE (08:14)
[2025-02-12 08:17] VITALS: PULSE 78; RESP 17; O2SAT 90
--- NOTE | 2025-02-12 09:46 | P.DS_ITS ---
DS: Providers Provider Date of admission: 02/06/25 09:11 Date of discharge: 02/12/25 Primary care physician: Kiel Shaffer MD Consults: 02/04/25 22:26 Consult to Neurology Routine Consulting Provider: [facility] Reason for consultation: R hand weakness Has provider been notified: Yes DS: Diagnosis Discharge Diagnosis (1) Diabetes mellitus: Status: Acute DS: Summary Hospital Course Hospital Course: from initial hpi: 59-year-old Belarusian-speaking female with a past medical history significant for COPD, seizure disorder, , hx CVA with L deficit, type 2 diabetes, brain lesion, CAD, lymphoma, DRE, tobacco use, morbid obesity, hyperlipidemia and GERD, who presented to the ED due to sudden headache and right hand weakness beginning yesterday around 18:00. She denies any visual changes, nausea, vomiting, urinary symptoms or upper respiratory symptoms. Her headache persists but is intermittent, mild and frontal. She has been able to ambulate without difficulty and isn't having any lower extremity symptoms aside from her chronic left-sided deficit due to previous stroke. She recently had an MRI on 02/01 which showed consider cytotoxic lesions of corpus callosum related to seizures versus metabolic disturbances versus infectious versus malignancy versus drug related and/or toxins related. Vascular versus autoimmune disorder should be considered . ED provider spoke with Dr. Villaseñor who suggested admission and he will f/u with her tomorrow. 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 LP showed some rbcs and lymphocytes, was seen by neuro who recommended 3 days of 1gm solumedrol iv daily. she has some mild improvement after that, was recommended to continue on prednisone 20mg daily and follow up with neuro as outpatient. for copd was continued on inhalers, for epilepsy oxcarbazine, for DM insulin, for dre cpap at night, for morbid obesity weight loss recommended. patient completed high dose steroid course, though improved, still has significant aphasia and weakness but will continue treatment at home with po prednisone and close neuro follow up. Time Attestation Discharge Coordination Time (in mins): 33 Quality: Safe Use of Opioids Does Pt have an Active Cancer Diagnosis on the Problem List?: No Quality: Stroke Does the patient have a stroke diagnosis?: No Physical Exam Exam: Exam: alert She is oriented x3. She follows commands well. Cranial nerves 2-12 are normal. There is no obvious facial asymmetry. Tongue protrudes in the midline. She has spastic left hemiparesis and mild right upper extremity weakness. Right lower extremities at least 4+/5. Plantar response on the left is extensor on the right is flexor. Gait was not tested., aphasia Vital Signs: Vital Signs: Last Vital Signs Temp 97.3 F 02/12/25 07:37 Pulse 78 02/12/25 08:17 Resp 17 02/12/25 08:17 BP 119/69 02/12/25 07:37 Pulse Ox 96 02/12/25 07:37 O2 Del Method Room Air 02/12/25 07:37 BMI result Body Mass Index 42.0 DS: Data Data Completed and Pending Pending studies at discharge: Pending at discharge 02/07/25 13:36 Cytology [PTH] Routine Labs on day of discharge: Laboratory Results - last 24 hr 02/05/25 02/11/25 02/11/25 12: 11:39 16:15 POC Glucose 197 H 221 H MARISOL Screen NEGATIVE MARISOL Titer TNP MARISOL Titer 2 TNP MARISOL Titer 3 TNP MARISOL Pattern TNP MARISOL Pattern 2 TNP MARISOL Pattern 3 TNP 02/11/25 02/12/25 20:11 07:42 POC Glucose 148 H 108 MARISOL Screen MARISOL Titer MARISOL Titer 2 MARISOL Titer 3 MARISOL Pattern MARISOL Pattern 2 MARISOL Pattern 3 Discharge Plan Discharge Anticipated Discharge Date/Time: 02/12/25 09:41 Patient Disposition: Home Health Service Discharge Diagnosis: autoimmune 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 condition Referrals: Marcia Villaseñor MD [Physician, Neurology] - 1 Week Name,MD Kiel [Primary Care Provider, Internal Medicine] - 1 Week Discharge Medications: New prednisone 20 mg tablet 20 mg PO DAILY Qty: 14 0RF Continued Advair HFA 115-21 mcg/actuation HFA aerosol inhaler 2 puff inhalation Q12H 30 Days Qty: 12 5RF Rx Instructions: administer with spacer pyridoxine (vitamin B6) 100 mg tablet 100 mg PO DAILY 90 Days Qty: 90 3RF Combivent Respimat 20-100 mcg/actuation mist 1 puff PO Q6H Qty: 4 3RF gabapentin 800 mg tablet 800 mg PO TID aspirin 81 mg tablet,chewable 1 tab PO QPM rosuvastatin 40 mg tablet 40 mg PO BEDTIME losartan 50 mg tablet 50 mg PO DAILY oxcarbazepine 150 mg tablet 150 mg PO DAILY calcium carbonate-vitamin D3 600 mg-5 mcg (200 unit) tablet 1 tab PO BID famotidine 20 mg tablet 20 mg PO BID furosemide 20 mg tablet 20 mg PO DAILY albuterol sulfate [Ventolin HFA] 90 mcg/actuation HFA aerosol inhaler 2 puff INHALATION Q4H PRN (Reason: wheezing) ezetimibe 10 mg tablet 10 mg PO DAILY icosapent ethyl 1 gram capsule 2 g PO BID Mounjaro 15 mg/0.5 mL pen injector 15 mg subcut TH acetaminophen 650 mg tablet extended release 650 mg PO Q8H PRN (Reason: Mild Pain (Scale Score 1-4)) albuterol sulfate 2.5 mg /3 mL (0.083 %) solution for nebulization 2.5 mg inhalation Q4H PRN (Reason: shortness of breath or wheezing) cetirizine [Zyrtec] 10 mg tablet 10 mg PO DAILY oxycodone 10 mg tablet 10 mg PO DAILY PRN (Reason: headache) Qty: 30 0RF Rx Instructions: Partial Fill upon patient request. ibuprofen 600 mg tablet 600 mg PO Q6H PRN (Reason: pain) Qty: 12 0RF montelukast [Singulair] 10 mg tablet 10 mg PO BEDTIME metoprolol succinate 25 mg tablet extended release 24 hr 25 mg PO BEDTIME (DME) pen needle, diabetic [Pentips Pen Needle] 32 gauge x 5/32 needle See Rx Instructions .ROUTE DAILY Qty: 50 Rx Instructions: As directed paroxetine HCl 40 mg tablet 40 mg PO BEDTIME Lantus Solostar U-100 Insulin 100 unit/mL (3 mL) insulin pen 15 unit subcut DAILY lidocaine 5 % adhesive patch,medicated 1 patch topical DAILY PRN (Reason: Pain) Rx Instructions: leave on most painful area for up to 12 hrs oxcarbazepine 300 mg tablet 450 mg PO BEDTIME clonidine HCl 0.1 mg tablet 0.1 mg PO BEDTIME metformin 500 mg tablet extended release 24 hr 500 mg PO BEDTIME atorvastatin 80 mg tablet 80 mg PO BEDTIME Discharge Orders: Discharge Order (Routine); Ordered 02/12/25 Ordered By: Cm Cross Diet: Advance to usual diet Activity on Discharge: As tolerated Stand Alone Forms: Patient Portal Discharge page Print Language: Belarusian Care Plan Goals: recovery 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
--- NOTE | 2025-02-12 10:05 | P.F2F_ITS ---
Service Date Service Date: 02/12/25 Encounter Date of encounter: 02/12/25 Reasons for Services Signs and symptoms assessed: bed bound Reason for longterm: medication management, medication treatment and teach disease management Reason for physical therapy: home safety and mobility, therapeutic exercises, restore joint function and gait/transfer training Homebound: Leaving the home is medically contraindicated at this time without the asist of a device and/or another person due th the listed conditions above and below. Reason homebound: bedbound/chairbound Certification: Based on the above findings, I certify that this patient is confined to the home and needs intermittent longterm care, physical therapy and/or speech therapy, or continues to need occupational therapy. The patient is under my care, and I have initiated the establishment of the plan of care. The patient will be followed by a physician who will periodically review the plan of care. Time Spent With Patient Time: Total time managing care of this patient today ____ minutes.
--- NOTE | 2025-02-12 11:10 | MHC.CM.PN ---
Per MD medically cleared for dc. CM met with patient/family via furrier apprentice. Declines STR. Will return home today w/ PT/SN via [facility]. BLS scheduled for 12pm. RN aware.
[2025-02-12 11:33] LABS: Glucose, Whole Blood 154 mg/dL (60-115)
--- NOTE | 2025-02-12 12:06 | PC.NURSE ---
Warm hand over given to EMS for dc.
[2025-02-12 12:10] VITALS: BP 123/73; PULSE 63; RESP 18; TEMP 36.1; O2SAT 94
[2025-02-15 07:36] LABS: Albumin, CSF 55; Prealbumin, CSF 4.6
[2025-02-15 07:37] LABS: Beta Globulin, CSF 17.8
[2025-02-15 07:38] LABS: Gamma Globulin 7.1
== END 2025-02-12 12:15 | disposition home health service (06) | DRG 58 ==
LOC: HO.ED 16:24 → HO.EDOVER 20:39 → HO.IMC 02-05 19:10 → HO.S3 02-08 18:47
PROVIDERS: Internal Medicine; Physician Assistant Medical; Admitting Provider Physician Assistant; Emergency Provider Emergency Medicine; PCP Internal Medicine Geriatric Medicine; Visit Provider Internal Medicine
DX: G93.9 Disorder of brain, unspecified (principal); I62.02 Nontraumatic subacute subdural hemorrhage; D89.89 Other specified disorders involving the immune mechanism, not elsewhere classified; I69.354 Hemiplegia and hemiparesis following cerebral infarction affecting left non-dominant side; R47.01 Aphasia; E66.01 Morbid (severe) obesity due to excess calories; I25.10 Atherosclerotic heart disease of native coronary artery without angina pectoris; G47.33 Obstructive sleep apnea (adult) (pediatric); J44.9 Chronic obstructive pulmonary disease, unspecified; G40.909 Epilepsy, unspecified, not intractable, without status epilepticus; Z68.41 Body mass index [BMI] 40.0-44.9, adult; Z71.3 Dietary counseling and surveillance; E78.5 Hyperlipidemia, unspecified; K21.9 Gastro-esophageal reflux disease without esophagitis; G83.21 Monoplegia of upper limb affecting right dominant side; Z66 Do not resuscitate; Z20.822 Contact with and (suspected) exposure to COVID-19; Z87.891 Personal history of nicotine dependence; Z79.4 Long term (current) use of insulin; Z79.51 Long term (current) use of inhaled steroids; Z79.82 Long term (current) use of aspirin; Z79.84 Long term (current) use of oral hypoglycemic drugs; Z79.899 Other long term (current) drug therapy
CPT/HCPCS: 36415; 62328; 70450; 70551; 71046; 74176; 80048; 80053; 80061; 80076; 81003; 82607; 82746; 82945; 82947; 83735; 83873; 83916; 84157; 84166; 84443; 84484; 85025; 85027; 85610; 85652; 86038; 87015; 87070; 87205; 87483; 87637; 88108; 89051; 93005; 93306; 93880; 97110; 97162; 97166; 97530; 99285; J1885; J2919; J3360; Q9957

== ENCOUNTER → 2025-02-04 12:47 | Outpatient (BNV) | payer MEDICAID, SELFPAY | PROVIDERS: PCP Internal Medicine Geriatric Medicine; Visit Provider Internal Medicine Cardiovascular Disease | DX: M79.603 Pain in arm, unspecified (principal) | CPT/HCPCS: 93010 ==

== ENCOUNTER → 2025-02-04 12:48 | Outpatient (BNV) | payer MEDICAID, SELFPAY | PROVIDERS: PCP Internal Medicine Geriatric Medicine; Visit Provider Radiology Diagnostic Radiology | DX: R53.1 Weakness (principal); J98.11 Atelectasis | CPT/HCPCS: 70450; 71046 ==

== ENCOUNTER 2025-02-04 20:32 | Outpatient (BNV) | payer MEDICAID, SELFPAY | END 2025-02-05 04:17 | PROVIDERS: Admitting Provider Physician Assistant; Emergency Provider Emergency Medicine; PCP Internal Medicine Geriatric Medicine; Visit Provider Radiology Vascular & Interventional Radiology | DX: I62.02 Nontraumatic subacute subdural hemorrhage (principal) | CPT/HCPCS: 70551; 74176; 93880 ==

== ENCOUNTER → 2025-02-04 20:32 | Outpatient (BNV) | payer MEDICAID, SELFPAY | PROVIDERS: Admitting Provider Physician Assistant; Emergency Provider Emergency Medicine; PCP Internal Medicine Geriatric Medicine; Visit Provider Internal Medicine | DX: R53.1 Weakness (principal); R51.9 Headache, unspecified; E11.9 Type 2 diabetes mellitus without complications | CPT/HCPCS: 99232 ==

== ENCOUNTER → 2025-02-04 20:32 | Outpatient (BNV) | payer MEDICAID, SELFPAY | PROVIDERS: Admitting Provider Physician Assistant; Emergency Provider Emergency Medicine; PCP Internal Medicine Geriatric Medicine; Visit Provider Psychiatry & Neurology Neurology | DX: R90.89 Other abnormal findings on diagnostic imaging of central nervous system (principal); G93.9 Disorder of brain, unspecified | CPT/HCPCS: 99223 ==

== ENCOUNTER → 2025-02-05 07:00 | Outpatient (BNV) | payer MEDICAID, SELFPAY | PROVIDERS: Admitting Provider Physician Assistant; Emergency Provider Emergency Medicine; PCP Internal Medicine Geriatric Medicine; Visit Provider Internal Medicine Cardiovascular Disease | DX: Z13.6 Encounter for screening for cardiovascular disorders (principal) | CPT/HCPCS: 93306 ==

== ENCOUNTER → 2025-02-06 07:22 | Outpatient (BNV) | payer MEDICAID, SELFPAY | PROVIDERS: Admitting Provider Physician Assistant; Emergency Provider Emergency Medicine; PCP Internal Medicine Geriatric Medicine; Visit Provider Radiology Diagnostic Radiology | DX: S31.030A Puncture wound without foreign body of lower back and pelvis without penetration into retroperitoneum, initial encounter (principal) | CPT/HCPCS: 62328 ==